=== PATIENT | female | born 1965 | race Caucasian/White ===

== ENCOUNTER 2024-01-26 13:03 | Outpatient (CLI) | payer OTHER, SELFPAY ==
--- NOTE | ~2024-01-26 | MR_ITS ---
EXAMINATION: MR foot RT wo con DATE: 01/26/2024 13:44 INDICATION: Posterior tibial tendinitis TECHNIQUE: Magnetic resonance imaging (MRI) of the right foot was performed without intravenous contr ast. Mjxzp-so-pumc included the ankle but excluding the toes. Sequences included sagittal T1-weighted FSE, sagittal fluid sensitive FSE STIR, coronal PD-weighted FS FSE, coronal T1-weighted FSE, axial P D-weighted FS FSE, and axial PD-weighted FSE. COMPARISON: None FINDINGS: Bone alignment is normal. Normal bone marrow signal throughout with no fracture, reactive edema or pa thologic marrow replacing process. The medial and lateral stabilizing ligaments of the ankle, the spr ing ligament complex and the Lisfranc ligament complex are normal. Small amount of fluid surrounding the normal-appearing distal tibialis posterior tendon consistent with mild tenosynovitis. There is an accessory peroneocalcaneus internus muscle belly line lateral to the flexor focus along this muscle belly and with tendon extending to insert on the medial plantar calcaneus near the base of the susten taculum adonis. The remaining flexor and extensor tendons of the foot and ankle are normal. Plantar apo neurosis is normal. Intrinsic musculature of the foot is unremarkable. The joint space at the ankle, mid and hindfoot are normal with physiologic amount of joint fluid. IMPRESSION: 1. Mild tenosynovitis along the normal tibialis posterior tendon. Reviewed, dictated and finalized at location B.
== END 2024-01-26 13:04 ==
LOC: MICIMG 13:05
PROVIDERS: PCP Podiatrist Foot & Ankle Surgery; Visit Provider Podiatrist Foot & Ankle Surgery
DX: M72.2 Plantar fascial fibromatosis (principal); M76.821 Posterior tibial tendinitis, right leg
CPT/HCPCS: 73718

== ENCOUNTER 2024-11-06 08:14 | Emergency (ER) | payer OTHER, SELFPAY ==
--- NOTE | ~2024-11-06 | XR_ITS ---
EXAMINATION: XR chest 2V DATE: 11/06/2024 10:04 INDICATION: Shortness of breath and cough TECHNIQUE: PA and lateral views of the chest were obtained. COMPARISON: None FINDINGS: Airspace and interstitial opacity anterior left mid and lower lung zones suspicious for pneumonia. No pleural effusion or pneumothorax. The cardiomediastinal silhouette is normal. Visualized bones and s oft tissues are unremarkable. IMPRESSION: 1. Lingular and inferior left lower lobar pneumonia. Reviewed, dictated and finalized at location B. 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
--- NOTE | ~2024-11-06 | XR_ITS ---
EXAMINATION: XR abdomen/kub 1V DATE: 11/06/2024 10:04 INDICATION: Vomiting. Cough. TECHNIQUE: A supine view of the abdomen on 2 radiographs was obtained. COMPARISON: None. FINDINGS: Cholecystectomy clips in the right upper quadrant. Small to moderate amount of gas scattered througho ut nondilated loops of large and small bowel in the abdomen and pelvis. No suspicious calcifications in the abdomen or pelvis. Opacities at the left lower lung zone consistent with pneumonia. Severe spo ndylosis at the lumbosacral junction. IMPRESSION: 1. Unremarkable bowel gas pattern. 2. Pneumonia in the left lower lung zone. Reviewed, dictated and finalized at location B. 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
[2024-11-06 08:55] VITALS: BP 123/74; PULSE 98; RESP 20; TEMP 36.3; O2SAT 98
--- NOTE | 2024-11-06 09:36 | ED.NAVMDI ---
HPI - Nausea/Vomiting/Diarrhea General Chief complaint: Nausea/Vomiting/Diarrhea Stated complaint: stomach pain/nausea /dizzy Time Seen by Provider: 11/06/24 09:36 Source: patient and RN notes reviewed Mode of arrival: ambulatory Limitations: no limitations History of Present Illness HPI Narrative: 59-year-old female with a history of GI obstruction 04/2024 presented for c/o nausea, vomiting and diarrhea that occurred 2 days ago. Had one episode of diarrhea today. Has not eaten for over 2 days. Has had no more emesis, and Tolerating fluids. Endorses weakness, fever up to 101 yesterday, chills, and feels like she cannot get a deep breath which she attributes to anxiety. States the obstruction resulted in surgery and the situation was traumatic. Denies cough, sob, wheezing. Took Zofran for symptoms. Denies hematemesis, hematochezia, melena. Related Data Home Medications ?Medication ?Instructions ?Recorded ?Confirmed ?Last Taken ?Type alprazolam 0.25 mg tablet mg 11/06/24 Unknown History estradiol 0.01% (0.1 mg/gram) vaginal 11/06/24 Unknown History vaginal cream etanercept 50 mg/mL (1 mL) mg subcut 11/06/24 Unknown History subcutaneous syringe (Enbrel) folic acid 1 mg tablet 11/06/24 Unknown History methotrexate sodium 2.5 mg tablet mg 11/06/24 Unknown History nabumetone 500 mg tablet mg 11/06/24 Unknown History ondansetron 8 mg disintegrating mg 11/06/24 Unknown History tablet trazodone 100 mg tablet mg 11/06/24 Unknown History valacyclovir 1 gram tablet mg 11/06/24 Unknown History Allergies Allergy/AdvReac Type Severity Reaction Status Date / Time levofloxacin (From Levaquin) AdvReac Intermediate Hallucinati Verified 11/06/24 10:05 ng Review of Systems Review of Systems: CONSTITUTIONAL: reports fever, chills, weakness ENT: Denies rhinorrhea, congestion CARDIOVASCULAR: Denies chest pain, palpitations, or edema. RESPIRATORY: Denies cough or dyspnea. GASTROINTESTINAL: Endorses nausea, vomiting, diarrhea. Denies abdominal pain, hematochezia, melena, hematemesis GENITOURINARY: Denies dysuria, hematuria, or CVA tenderness. SKIN: Denies rash MUSCULOSKELETAL: Denies back pain, joint pain, or myalgia. NEUROLOGIC: Denies headache, numbness, tingling All systems reviewed & are unremarkable except as noted in HPI and below PMFSH Past Medical History Medical History (Updated 11/06/24 @ 10:36 by Elida Avila APRN) Rheumatoid arthritis Small bowel obstruction Anxiety Comments At time of signature, I have reviewed and agree with nursing past medical, surgical, social and family history unless otherwise noted. Please see nursing chart for further information. There is no relevant family history pertinent to the presenting complaint Exam Narrative: GENERAL: mildly ill-appearing, nontoxic and in no acute distress. EYES: EOMI. Conjunctivae normal. ENT: Mucous membranes pink and moist. CHEST: No respiratory distress. Clear to auscultation. HEART: Regular rate and rhythm. No murmur appreciated. Normal peripheral pulses. ABDOMEN: abd soft, nondistended, normal active bowel sounds. Nontender abdomen; No guarding, rebound tenderness, asymmetry SKIN: Warm, dry, no rash. Capillary refill normal. Normal skin turgor. NEURO: No focal deficits. Alert and oriented x3. PSYCH: appears anxious. Course Course Emergency Course: Patient is aware of diagnosis, understands and agrees to treatment plan. Anticipatory guidance given. Patient agrees to follow-up as directed and is aware of reasons to seek care at the emergency department. Portions of this record may have been created with voice recognition software Level of Care: Express Care Visit Vital Signs Vital signs: Vital Signs Temperature 97.4 F L 11/06/24 08:55 Pulse Rate 98 11/06/24 08:55 Respiratory Rate 20 11/06/24 08:55 Blood Pressure 123/74 11/06/24 08:55 Pulse Oximetry 98 11/06/24 08:55 Oxygen Delivery Room Air 11/06/24 08:55 Temperature 97.4 F L 11/06/24 08:55 Pulse Rate 98 11/06/24 08:55 Respiratory Rate 20 11/06/24 08:55 Blood Pressure 123/74 11/06/24 08:55 Pulse Oximetry 98 11/06/24 08:55 Oxygen Delivery Room Air 11/06/24 08:55 Transfer Transfered to: [facility] Transportation: Other (private vehicle) Transfer rationale: Pt is agreeable to transfer. Requests transfer to [facility] via private vehicle. Risks of transportation reviewed with pt including injury, worsening of condition and . v/u. will be driving pt; Report called to hospital, spoke with Xiomy Grey NP, accepting physician. Pt is in stable condition at time of transfer. Advised to remain NPO and go directly to the hospital. MDM - Nausea/Vomiting/Diarrhea MDM Narrative Medical decision making narrative: Negative flu and COVID. Results of x-rays reviewed with patient; Left lingula and lower lung pneumonia. Pt states she feels like she will pass out. Pt assisted to the exam table, laying down. Remains awake and alert. Discussed physical exam findings. Advised ER transfer for nausea/vomiting, weakness. Requests [facility]. Differential Diagnosis Differential diagnosis: Likely traveler's diarrhea, food poisoning, gastroenteritis, drug-induced nausea and vomiting and dehydration Lab Data Labs: Lab Results 11/06/24 Range/Units 08:59 POC Influenza A Ag Negative (Negative) POC Influenza B Ag Negative (Negative) POC SARS CoV-2 Ag Negative (Negative) Imaging Data Radiologist's impression: Patient: Hans Pascual : 1965 MR#: [id number] Age: 59 Acct:[id number] Loc: [facility] ADM Date: 11/06/24Attending Dr: Ordering Physician: Elida Avila APRN Date of Service: 11/06/24 Procedure(s): XR chest 2V Accession Number(s): [id number] cc: Elida Avila APRN; Bola, Dayanara MCELROY~ EXAMINATION: XR chest 2V DATE: 11/06/2024 10:04 INDICATION: Shortness of breath and cough TECHNIQUE: PA and lateral views of the chest were obtained. COMPARISON: None FINDINGS: Airspace and interstitial opacity anterior left mid and lower lung zones suspicious for pneumonia. No pleural effusion or pneumothorax. The cardiomediastinal silhouette is normal. Visualized bones and soft tissues are unremarkable. IMPRESSION: 1. Lingular and inferior left lower lobar pneumonia. Patient: Hans Pascual : 1965 MR#: [id number] Age: 59 Acct:[id number] Loc: [facility] ADM Date: 12/23/24Attending Dr: Ordering Physician: Elida Avila APRN Date of Service: 11/06/24 Procedure(s): XR abdomen/kub 1V Accession Number(s): [id number] cc: Elida Avila APRN; OwenDayanara MD~ EXAMINATION: XR abdomen/kub 1V DATE: 11/06/2024 10:04 INDICATION: Vomiting. Cough. TECHNIQUE: A supine view of the abdomen on 2 radiographs was obtained. COMPARISON: None. FINDINGS: Cholecystectomy clips in the right upper quadrant. Small to moderate amount of gas scattered throughout nondilated loops of large and small bowel in the abdomen and pelvis. No suspicious calcifications in the abdomen or pelvis. Opacities at the left lower lung zone consistent with pneumonia. Severe spondylosis at the lumbosacral junction. IMPRESSION: 1. Unremarkable bowel gas pattern. 2. Pneumonia in the left lower lung zone. Discharge Plan Discharge Clinical Impression: Nausea, vomiting and diarrhea Pneumonia Qualifiers: Pneumonia type: due to unspecified organism Laterality: left Lung location: lower lobe of lung Qualified Code(s): J18.9 - Pneumonia, unspecified organism Patient Disposition: Acute Care Hospital Condition: Stable Patient Language: Kiswahili Prescriptions: No Action valacyclovir 1 gram tablet ondansetron 8 mg tablet,disintegrating alprazolam 0.25 mg tablet methotrexate sodium 2.5 mg tablet trazodone 100 mg tablet folic acid 1 mg tablet estradiol 0.01 % (0.1 mg/gram) cream VAGINAL nabumetone 500 mg tablet Enbrel 50 mg/mL (1 mL) syringe SUBCUT Follow-up/Referrals: OwenDayanara MD [Primary Care Provider] - Time of Disposition: 10:27
[2024-11-06 09:39] LABS: EDCOVIDSCREEN Negative (Negative); EDINFLUASCREEN Negative (Negative); EDINFLUBSCREEN Negative (Negative)
--- OUTSIDE RECORDS SUMMARY | 2024-11-13 17:05 | XMS_ITS | Patient Health Record ---
Author Organization [facility] Address [address] [place] [address] Care Team Providers Care Guide Cruise Name Role Phone Jaspreet Pearl Primary Care Provider Adriana Torre Unavailable [phone] [employer], Provider Unavailable Unavailab le Allergies Allergen (clinical drug ingredient) Drug/Non Drug Allergy documented on EMR Reaction Allergy Type Onset Date Status Levaquin hallucinations Drug Allergy Ac tive Reason For Referral No Information Medications Medication SIG (Take, Route, Frequency, Duration) Notes Start Date End Date Status ESTRADIOL 0.05 mg/24 hr 1 ea intravaginally every 3 months for 1 dose(s) Active Methotrexate 2.5 MG DIRECTED ORALLY ONCE A WEEK for 30 *Please review and pick correct strength-formulat ion from [employer] options. If intended option is not shown, discontinue and re-order from Quick Search* 07/24/2021 Active TRAZODONE 50 mg as directed orally Active busPIRone HCl 15 MG 1 tab(s) orally once daily for 30 days 07/24/2021 Active GABAPENTIN 100 mg 1 cap(s) orally 3 times a day Active Enbrel 50 MG/ML for 28 Acti ve NABUMETONE 1000 mg 1 tab(s) orally once a day Active Folic Acid 1 MG 1 tab(s) orally once a day for 30 day(s) Active AUVI -Q 0.3 mg as directed intramuscularly once for 1 day Active AZELASTINE HYDROCHLORIDE NASAL 137 mcg/inh 2 spray(s) intranasally 2 times a day, PRN for 30 day(s) Active Montelukast Sodium 10 MG 1 tab(s) orally once a day for 90 days Active FOLIC ACID 1 mg 1 tab(s) orally once a day for 30 day(s) Active MULTIVITAMIN Multiple Vitamins 1 cap(s) orally once a day for 30 day(s) Active PROAIR RESPICLICK 90 mcg 2 puffs q 4-6 hours per asthma action plan Inhaled Q4-6 hours, PRN and per the asthma action plan for 30 day(s) Active ENBREL PREFILLED SYRINGE 50 mg/mL for 28 Active ProAir RespiClick 90 MCG 2 PUFFS Q 4-6 HOURS PER ASTHMA ACTION PLAN INHALED Q4-6 HOURS, PRN AND PER THE ASTHMA ACTION PLAN for 30 DAY(S) *Please review and pick correct strength-formulat ion from [employer] options. If intended option is not shown, discontinue and re-order from Quick Search* Active Auvi-Q 0.3 MG/0.3ML as directed intramuscularly once for 1 day Active NASAL WASHES N/A DIRECTED INTRANASALLY NEEDED for 30 *Please review for potential replacement for e-prescription and drug interaction check* Active Piyush Allergy 180 MG 1 tab(s) orally once a day for 30 day(s) Active METHOTREXATE 2.5 mg as directed orally once a week for 30 07/24/2021 Active BUSPIRONE 15 mg 1 tab(s) orally once daily for 30 days 07/24/2021 Active SIT (TRADITIONAL) VARIABLE PER SCHEDULE SC PER SCHEDULE for TO BE DETERMINED *Please review for potential replacement for e-prescription and drug interaction check* Active Multivitamin MULTIPLE VITAMINS 1 CAP(S) ORALLY ONCE A DAY for 30 DAY(S) *Please review and pick correct strength-formulat ion from [employer] options. If intended option is not shown, discontinue and re-order from Quick Search* Active VITAMIN C PLUS ZINC VITAMIN C WITH ZINC 1 TAB(S) ORALLY ONCE A DAY *Please review for potential replacement for e-prescription and drug interaction check* Active Estradiol 0.05 MG/24 HR 1 EA INTRAVAGINALLY EVERY 3 MONTHS for 1 DOSE(S) *Please review and pick correct strength-formulat ion from [employer] options. If intended option is not shown, discontinue and re-order from Quick Search* Active PIYUSH 24 HOUR ALLERGY 180 mg 1 tab(s) orally once a day for 30 day(s) Active traZODone HCl 50 MG as directed orally Active PROAIR RESPICLICK 90 mcg 2 puffs q 4-6 hours per asthma action plan Inhaled Q4-6 hours, PRN and per the asthma action plan for 30 day(s) Active Gabapentin 100 MG 1 cap(s) orally 3 times a day Active Azelastine HCl 137 MCG/SPRAY 2 spray(s) intranasally 2 times a day, PRN for 30 day(s) Active MONTELUKAST 10 mg 1 tab(s) orally once a day for 90 days Active Nabumetone 1000 MG 1 tab(s) orally once a day Active Social History Tobacco Use: Social History Observation Description Date Details (start date - stop date) Never Smoker NA - NA Smoking Smart Form: Question Answer Notes Are you a: never smoker Additional Findings:Tobacco Non-User Current non -smoker Problems Problem Type SNOMED Code ICD Code Onset Dates Problem Status W/U Status Risk Notes Problem Chronic allergic conjunctivitis (37411593) Other chronic allergic conjunctivitis (H10.45) Active confirmed Problem Common cold (68875744) Acute nasopharyngitis [common cold] (J00) Active confirmed Problem Allergic rhinitis caused by pollen (disorder) (48702374) Allergic rhinitis due to pollen (J30.1) Active confirmed Problem Allergic rhinitis caused by animal hair and dander (272500455105528) Allergic rhinitis due to animal (cat) (dog) hair and dander (J30.81) Active confirmed Problem Allergic rhinitis (46475965) Other allergic rhinitis (J30.89) Active confirmed Problem 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) Active confirmed Problem Allergic rhinitis caused by pollen (disorder) (70609524) Allergic rhinitis due to pollen (J30.1) Active confirmed Problem Allergic rhinitis caused by animal hair and dander (120153989060264) Allergic rhinitis due to animal (cat) (dog) hair and dander (J30.81) Active confirmed Problem Allergic rhinitis (22769243) Other allergic rhinitis (J30.89) Active confirmed Problem Chronic allergic conjunctivitis (63935723) Other chronic allergic conjunctivitis (H10.45) Active confirmed Problem Shortness of breath (405715729) Shortness of breath (R06.02) Active confirmed Vital Signs Respiratory Rate 17 /min 12/02/2023 Blood pressure diastolic 72 mm Hg 12/02/2023 Oximetry 98 % 12/02/2023 Height 68 in 12/02/2023 Blood pressure systolic 134 mm Hg 12/02/2023 Weight 180 lbs 12/02/2023 BMI 27.37 kg/m2 12/02/2023 Encounters Encounter Location Date Provider Diagnosis [address] [address] 04/29/2024 Provider [facility] Allergic rhinitis due to pollen J30.[address] [address] 12/02/2023 Adriana Ma Allergic rhinitis du e to pollen J30.1 ; Shortness of breath R06.02 ; Allergic rhinitis due to animal (cat) (dog) hair and dander J30.81 ; Other allergic rhinitis J30.89 and Other chronic allergic conjunctivitis H10.[address] [address] 12/30/2023 Adriana Anil Allergic rhinitis du e to pollen J30.1 ; Other allergic rhinitis J30.89 ; Allergic rhinitis due to animal (cat) (dog) hair and dander J30.81 and Other chronic allergic conjunctivitis H10.[address] [address] 01/27/2024 Adriana Anil Allergic rhinitis du e to pollen J30.1 ; Other allergic rhinitis J30.89 ; Allergic rhinitis due to animal (cat) (dog) hair and dander J30.81 and Other chronic allergic conjunctivitis H10.[address] [address] 02/23/2024 Adriana Anil Allergic rhinitis du e to pollen J30.1 ; Other allergic rhinitis J30.89 ; Allergic rhinitis due to animal (cat) (dog) hair and dander J30.81 and Other chronic allergic conjunctivitis H10.[address] [place] [address] 03/22/2024 Adriana Anil Allergic rhinitis du e to pollen J30.1 ; Other allergic rhinitis J30.89 ; Allergic rhinitis due to animal (cat) (dog) hair and dander J30.81 and Other chronic allergic conjunctivitis H10.45 [facility] [address] [place] [phone] 04/05/2024 Adriana Ma Assessments Encounter Date Diagnosis (ICD Code) Assessment Notes Treatment Notes Treatment Clinical Notes Section Notes 12/02/2023 Allergic rhinitis due to pollen (ICD-10 - J30.1) Hans clearly suffers from atopic disease based upon history and our skin testing. She is tolerating SCIT without large local or systemic symptoms. She was instructed to carry her epinephrine autoinjector for 2 hours after leaving the office. Plan to discontinue SCIT after completing 5 years of therapy 12/02/2023 Shortness of breath (ICD-10 - R06.02) Possible intermittent asthma with animal exposure. Improvement with Singulair. Spirometry at last check is normal and no use of albuterol in several years. 12/30/2023 Allergic rhinitis due to pollen (ICD-10 - J30.1) 01/27/2024 Allergic rhinitis due to pollen (ICD-10 - J30.1) 02/23/2024 Allergic rhinitis due to pollen (ICD-10 - J30.1) 03/22/2024 Allergic rhinitis due to pollen (ICD-10 - J30.1) 04/29/2024 Allergic rhinitis due to pollen (ICD-10 - J30.1) 12/02/2023 Allergic rhinitis due to animal (cat) (dog) hair and dander (ICD-10 - J30.81) 03/22/2024 Other allergic rhinitis (ICD-10 - J30.89) 02/23/2024 Other allergic rhinitis (ICD-10 - J30.89) 01/27/2024 Other allergic rhinitis (ICD-10 - J30.89) 12/30/2023 Other allergic rhinitis (ICD-10 - J30.89) 12/02/2023 Other allergic rhinitis (ICD-10 - J30.89) 01/27/2024 Allergic rhinitis due to animal (cat) (dog) hair and dander (ICD-10 - J30.81) 12/30/2023 Allergic rhinitis due to animal (cat) (dog) hair and dander (ICD-10 - J30.81) 02/23/2024 Allergic rhinitis due to animal (cat) (dog) hair and dander (ICD-10 - J30.81) 03/22/2024 Allergic rhinitis due to animal (cat) (dog) hair and dander (ICD-10 - J30.81) 03/22/2024 Other chronic allergic conjunctivitis (ICD-10 - H10.45) 02/23/2024 Other chronic allergic conjunctivitis (ICD-10 - H10.45) 12/30/2023 Other chronic allergic conjunctivitis (ICD-10 - H10.45) 01/27/2024 Other chronic allergic conjunctivitis (ICD-10 - H10.45) 12/02/2023 Other chronic allergic conjunctivitis (ICD-10 - H10.45) Given ocular signs and symptoms I encouraged allergy avoidance measures and meds as above. 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
--- OUTSIDE RECORDS SUMMARY | 2024-11-13 17:05 | XMS_ITS | Referral Summary ---
Author Organization [facility] Celleration Address [address] [place] [address] Care Team Providers Care Medical Insurance Biller Name Role Phone Dayanara Plaza MD Primary Care Provider [phone] Source Comments [facility],non-owned Affiliates and Associated Physician Practices is amultiple site organization consisting of ambulatory clinics and hospital sitesin [place], [place], [place] and [place]. This disclosure is being madepursuant to the Care Everywhere program and may not contain all information available regarding this patient. Last updated 18.[facility] Encounters Date Type Department Care Team Description 10/27/2024 Orders Only [facility] - Rheumatology [address] [place] [phone] Perez Cervantes MD Polyarthritis; Encounter for therapeutic drug monitoring; Encounter for long-term (current) use of medications 10/25/2024 Orders Only [facility] - Rheumatology [address] [place] [phone] Perez Cervantes MD 10/19/2024 Refill [facility] - Rheumatology [address] [place] [phone] Perez Cervantes MD MEDICATION REFILL 10/16/2024 Refill [facility] - Rheumatology [address] [place] [phone] Christian Pemberton MD MEDICATION REFILL 10/05/2024 Lab Requisition [facility] - DermPath Lab [address] [place] [address] Elida Reyes 09/25/2024 2:32 PM CRACKING AND FANNING MACHINE OPERATOR - 09/25/2024 11:59 PM CRACKING AND FANNING MACHINE OPERATOR Hospital Encounter [facility]ST[facility] RAD OP [address] [place] [address] Perez Cervantes MD Discharge Disposition: Home or Self Care 09/25/2024 Travel 09/25/2024 1:40 PM CRACKING AND FANNING MACHINE OPERATOR Office Visit [facility] - Rheumatology [address] [place] [address] Perez Cervantes MD Polyarthritis (Primary Dx); Encounter for therapeutic drug monitoring 09/01/2024 Orders Only [facility] - Rheumatology [address] [place] [address] Perez Cervantes MD Polyarthritis; Encounter for therapeutic drug monitoring; Encounter for long-term (current) use of medications 08/30/2024 Orders Only [facility] - Rheumatology [address] [place] [address] Perez Cervantes MD from Last 3 Months Allergies Active Allergy Reactions Criticality Noted Date Comments Levofloxacin Nausea and/or Vomiting,Psychiatric Medium 02/17/2018 hallucinations Medications * Be aware that medications may not be up to date on this document. Alwaysverify current medications with the patient. Medication Sig Dispensed Refills Start Date End Date Status dicyclomine (BENTYL) 20 MG tablet Take 1 (one) tablet by mouth as needed Active Multiple Vitamin (MULTI VITAMIN PO) Take 1 tablet by mouth once daily Active Azelastine HCl 137 MCG/SPRAY SOLN [place] 2 sprays into the nose 2 times daily Active polyethylene glycol 3350 (MIRALAX) 17 GM/SCOOP powder Take 17 (seventeen) g by mouth every 24 hours as needed Active methotrexate 2.5 MG tablet TAKE 8 TABLETS EVERY 7 DAYS 96 tablet 3 01/04/2023 Active Additional Information Patient taking differently: 6 tablet Oral EVERY 7 DAYS, (No instructions reported), Reported on 08/31/2023 nabumetone (Relafen) 500 MG tablet TAKE 2 TABLETS TWICE A DAY 360 tablet 3 01/04/2023 Active fexofenadine (Arabella) 180 MG tablet Take 1 (one) tablet by mouth every 24 hours Active valACYclovir (Valtrex) 1 GM tablet Take 1 (one) tablet by mouth once daily 03/04/2024 Active traZODone (Desyrel) 100 MG tablet Take 1 (one) tablet by mouth once daily 02/28/2024 Active folic acid (Folvite) 1 MG tabletIndicatio ns:Polyarthriti s Take 1 (one) tablet by mouth once daily 90 tablet 3 07/21/2024 5 Active estradiol (Estrace) 0.1 MG/GM vaginal cream Insert into the vagina once daily 10/26/2023 Active Enbrel 50 MG/ML prefilled syringeIndicati ons:Polyarthrit is Inject 50 (fifty) mg subcutaneously every 7 days 12 mL 3 10/19/2024 Active Enbrel 50 MG/ML prefilled syringeIndicati ons:Polyarthrit is Inject 50 (fifty) mg subcutaneously every 7 days 12 mL 07/11/2024 4 Discontinue d(Reorder) Enbrel 50 MG/ML prefilled syringeIndicati ons:Polyarthrit is Inject 50 (fifty) mg subcutaneously every 7 days 12 mL 3 10/16/2024 4 Discontinue d(Reorder) Active Problems Problem Noted Date Diagnosed Date Polyarthritis 06/01/2018 Encounter for therapeutic drug monitoring 2017 Immunizations Name Administration Dates Next Due FLU VACCINE TRI IIV3 SPLIT P F IM (FLUVIRIN) 08/22/2020 INFLUENZA 08/22/2020, 9,08/29/2017,2014,09/02/2013 INFLUENZA VACCINE, QUADR. (F LUZONE; FLULAVAL; FLUARIX; AFLURIA QUADRIVALENT; 6MO+), 0.5 ML (IIV4) 08/31/2023,08/08/2018 PNEUMOCOCCAL PPSV23 08/16/2016 iNFLUENZA VACCINE, RECOM-PACHECO, QUADR. (FLUBLOCK QUADRIVALENT; 18Y+) (RIV4) 09/01/2022 Social History Tobacco Use Types Packs/Day Years Used Date Smoking Tobacco: Former Cigarettes Q uit: 11/15/1998 Smokeless Tobacco: Never Tobacco Cessation:Counseling Given: Not Answered Alcohol Use Standard Drinks/Week Comments No 0 (1 standard drink = 0.6 oz pur e alcohol) PHQ-2 Answer Date Recorded Patient Health Questionnaire-2 Score 0 09/25/2024 Sex and Gender Information Value Date Recorded Sex Assigned at Not on file Gender Identity Not on file Sexual Orientation Not on file Last Filed Vital Signs Vital Sign Reading Time Taken Comments Blood Pressure 118/78 09/25/2024 1:24 PM CRACKING AND FANNING MACHINE OPERATOR Pulse 69 09/25/2024 1:24 PM CRACKING AND FANNING MACHINE OPERATOR Temperature 36.6 ??C (97.9 ??F) 09/25/2024 1:24 PM CS T Respiratory Rate 16 06/09/2021 2:48 PM CDT Oxygen Saturation 98% 09/25/2024 1:24 PM CRACKING AND FANNING MACHINE OPERATOR Inhaled Oxygen Concentration - - Weight 77.8 kg (171 lb 9.6 oz) 09/25/2024 1:24 P M CRACKING AND FANNING MACHINE OPERATOR Height 172.7 cm (5' 8 ) 09/25/2024 1:24 PM CRACKING AND FANNING MACHINE OPERATOR Body Mass Index 26.09 09/25/2024 1:24 PM CRACKING AND FANNING MACHINE OPERATOR Plan of Treatment Upcoming Encounters Date Type Department Care Team (Late st Contact Info) Description 03/27/2025 1:00 PM CDT Office Visit [facility] - Rheumatology [address] [place] [address], [place] [phone] Perez Cervantes MD [address] [place] [address] [place] [phone] Procedures Procedure Name Priority Date/Time Associated Diagnosis Comments QUANTIFERON-TB GOLD PLUS 1-TUBE 10/25/2024 7:42 AM CRACKING AND FANNING MACHINE OPERATOR HEPATITIS C AB W/RFLX TO HCV RNA QN PCR Routine 10/25/2024 7:42 AM CRACKING AND FANNING MACHINE OPERATOR Encounter for therapeutic drug monitoring HEPATITIS B SURFACE ANTIGEN W RFLX CONFIRMATION Routine 10/25/2024 7:42 AM CRACKING AND FANNING MACHINE OPERATOR Encounter for therapeutic drug monitoring HEPATITIS B SURFACE ANTIBODY Routine 10/25/2024 7:42 AM CRACKING AND FANNING MACHINE OPERATOR Encounter for therapeutic drug monitoring HEPATITIS B CORE ANTIBODY TOTAL Routine 10/25/2024 7:42 AM CRACKING AND FANNING MACHINE OPERATOR Encounter for therapeutic drug monitoring URINALYSIS W/MICROSCOPIC REFLEX TO CULTURE Routine 10/25/2024 7:39 AM CRACKING AND FANNING MACHINE OPERATOR Polyarthritis Encounter for therapeutic drug monitoring ERYTHROCYTE SEDIMENTATION RATE Routine 10/25/2024 7:39 AM CRACKING AND FANNING MACHINE OPERATOR Polyarthritis Encounter for therapeutic drug monitoring C-REACTIVE PROTEIN Routine 10/25/2024 7: 39 AM CRACKING AND FANNING MACHINE OPERATOR Polyarthritis Encounter for therapeutic drug monitoring COMPREHENSIVE METABOLIC PANEL Routine 10/25/2024 7:39 AM CRACKING AND FANNING MACHINE OPERATOR Polyarthritis Encounter for therapeutic drug monitoring CBC W AUTO DIFFERENTIAL Routine 10/25/20 24 7:39 AM CRACKING AND FANNING MACHINE OPERATOR Polyarthritis Encounter for therapeutic drug monitoring CULTURE URINE 10/25/2024 7:39 AM CRACKING AND FANNING MACHINE OPERATOR CULTURE URINE REFLEXED II 10/25/2024 7:39 AM CRACKING AND FANNING MACHINE OPERATOR DERMATOPATHOLOGY Routine 10/05/2024 10:3 3 AM CRACKING AND FANNING MACHINE OPERATOR XR CHEST 2VW Routine 09/25/2024 2:53 PM CRACKING AND FANNING MACHINE OPERATOR Encounter for therapeutic drug monitoring C-REACTIVE PROTEIN 08/30/2024 7: 38 AM CDT URINALYSIS W/MICROSCOPIC REFLEX TO CULTURE 08/30/2024 7:38 AM CDT CBC W AUTO DIFFERENTIAL 08/30/20 24 7:38 AM CDT ERYTHROCYTE SEDIMENTATION RATE 08/30/2024 7:38 AM CDT COMPREHENSIVE METABOLIC PANEL 08/30/2024 7:38 AM CDT CULTURE URINE 08/30/2024 7:38 AM CDT CULTURE URINE REFLEXED II 08/30/2024 7:38 AM CDT from Last 3 Months Results * QUANTIFERON-TB GOLD PLUS 1-TUBE (10/25/2024 7:42 AM CRACKING AND FANNING MACHINE OPERATOR) QuantiFERON TB Gold Plus NEGATIVE NEGATIVE [facility] Comment: Negative test result. M. tuberculosis complex infection unlikely. NIL 0.05 IU/mL [facility] MITOGEN MINUS NIL RESULT 7.19 IU/mL [facility] TB1-NIL 0.00 IU/mL [facility] TB2-NIL 0.02 IU/mL [facility] Comment: The Nil tube value reflects the background interferon gamma immune response of the patient's blood sample. This value has been subtracted from the patient's displayed TB and Mitogen results. Lower than expected results with the Mitogen tube prevent false-negative Quantiferon readings by detecting a patient with a potential immune suppressive condition and/or suboptimal pre-analytical specimen handling. The TB1 Antigen tube is coated with the M. tuberculosis-specific antigens designed to elicit responses from TB antigen primed CD4+ helper T-lymphocytes. The TB2 Antigen tube is coated with the M. tuberculosis-specific antigens designed to elicit responses from TB antigen primed CD4+ helper and CD8+ cytotoxic T-lymphocytes. For additional information, please refer to https://education.CS Products/faq/KJT911 (This link is being provided for informational/ educational purposes only.) Test Performed at: [employer] [facility] [id number] [place] [address] ??[phone] NAVID SCOTT MD 10/25/2024 7:42 AM CRACKING AND FANNING MACHINE OPERATOR 10/25/2024 7:42 AM CRACKING AND FANNING MACHINE OPERATOR Perez Cervantes MD LAB - CHEMISTRY GERA DAVID [facility] Organization Address City/State/ZIP Co de Phone Number [facility] [address] [place] [address] * HEPATITIS C AB W/RFLX TO HCV RNA QN PCR (10/25/2024 7:42 AM CRACKING AND FANNING MACHINE OPERATOR) Hepatitis C Antibody NON-REACTI VE NON-REACT ROMANA [facility] Comment: HCV antibody was non-reactive. There is no laboratory evidence of HCV infection. In most cases, no further action is required. However, if recent HCV exposure is suspected, a test for HCV RNA (test code 54106) is suggested. For additional information please refer to http://[employer].CS Products/faq/BWU14l8 (This link is being provided for informational/ educational purposes only.) Test Performed at: [employer] [place] ??[phone] NAVID SCOTT MD Blood BLOOD SPECIMEN / Unknown 10/25/2024 7:42 AM CRACKING AND FANNING MACHINE OPERATOR 10/25/2024 7:42 AM CRACKING AND FANNING MACHINE OPERATOR Perez Cervantes MD LAB - CHEMISTRY GERA DAVID Performing Organization Address [facility] [[email or web address]] de Phone Number [facility] [id number] [place] [phone] * (ABNORMAL) HEPATITIS B SURFACE ANTIBODY (10/25/2024 7:42 AM CRACKING AND FANNING MACHINE OPERATOR) Hepatitis B Virus Surface Antibody REACTIVE(A ) NON-REACT ROMANA [facility] Comment: Test Performed at: [employer] [place], [place] ??[address] NAVID SCOTT MD Blood BLOOD SPECIMEN / Unknown 10/25/2024 7:42 AM CRACKING AND FANNING MACHINE OPERATOR 10/25/2024 7:42 AM CRACKING AND FANNING MACHINE OPERATOR Perez Cervantes MD LAB - CHEMISTRY GERA DAVID Performing Organization Address [facility] Co de Phone Number [facility] [id number] [place] [phone] * HEPATITIS B CORE ANTIBODY TOTAL (10/25/2024 7:42 AM CRACKING AND FANNING MACHINE OPERATOR) Hepatitis B Core Virus Antibody Total NON-REACTI VE NON-REACT ROMANA [facility] Comment: For additional information, please refer to http://[employer]/faq/QEM285 (This link is being provided for informational/ educational purposes only.) Test Performed at: [employer] [facility] [place] ??[phone] NAVID SCOTT MD Blood BLOOD SPECIMEN / Unknown 10/25/2024 7:42 AM CRACKING AND FANNING MACHINE OPERATOR 10/25/2024 7:42 AM CRACKING AND FANNING MACHINE OPERATOR Perez Cervantes MD LAB - CHEMISTRY GERA DAVID Performing Organization Address [facility] Co de Phone Number [address] [address] * HEPATITIS B SURFACE ANTIGEN W RFLX CONFIRMATION (10/25/2024 7:42 AM CRACKING AND FANNING MACHINE OPERATOR) Pathologist [facility] Hepatitis B Virus Surface Antigen NON-REACTI VE NON-REACT ROMANA [facility] Comment: For additional information, please refer to http://education.CS Products/faq/IUS202 (This link is being provided for informational/ educational purposes only.) Test Performed at: [employer] [place] [address] [place], [place] ??[phone] NAVID SCOTT MD Blood BLOOD SPECIMEN / Unknown 10/25/2024 7:42 AM CRACKING AND FANNING MACHINE OPERATOR 10/25/2024 7:42 AM CRACKING AND FANNING MACHINE OPERATOR Perez Cervantes MD LAB - CHEMISTRY GERA DAVID Performing Organization Address [facility] [[email or web address]] de Phone Number [address] [address] * CULTURE URINE REFLEXED II (10/25/2024 7:39 AM CRACKING AND FANNING MACHINE OPERATOR) Only the most recent of2 resultswithin the time period is included. Pathologist [facility] Reflexive Urine Culture See Below [facility] Comment: CULTURE INDICATED - RESULTS TO FOLLOW Test Performed at: [employer] ??[phone] NAVID SCOTT MD 10/25/2024 7:39 AM CRACKING AND FANNING MACHINE OPERATOR 10/25/2024 7:40 AM CRACKING AND FANNING MACHINE OPERATOR Perez Cervantes MD LAB - MICROBIOLOGY O RDERABLES Performing Organization Address [facility] Co de Phone Number [address] [address] * (ABNORMAL) URINALYSIS W/MICROSCOPIC REFLEX TO CULTURE (10/25/2024 7:39 AM CRACKING AND FANNING MACHINE OPERATOR) Only the most recent of2 resultswithin the time period is included. Color UA YELLOW YELLOW [facility] Appearance CLOUDY(A) CLEAR [facility] Specific [place] UA 1.023 1.001 - 1.035 [facility] pH UA < OR = 5.0 5.0 - 8.0 [facility] Glucose UA NEGATIVE NEGATIVE [facility] Bilirubin UA NEGATIVE NEGATIVE [facility] Ketone UA NEGATIVE NEGATIVE [facility] Blood UA NEGATIVE NEGATIVE [facility] Protein UA NEGATIVE NEGATIVE [facility] Nitrite NEGATIVE NEGATIVE [facility] Leukocyte Esterase 2+(A) NEGATIVE [facility] WBC UA > OR = 60(A) < OR = 5 /HPF [facility] RBC UA NONE SEEN < OR = 2 /HPF [facility] Epithelial Cell UA 0-5 < OR = 5 /HPF [facility] Bacteria UA MODERATE(A) NONE SEEN /HPF [facility] Hyaline Casts NONE SEEN NONE SEEN /LPF [facility] Note See Below [facility] Comment: This urine was analyzed for the presence of WBC, RBC, bacteria, casts, and other formed elements. Only those elements seen were reported. Test Performed at: [employer] ??[phone] NAVID SCOTT MD Urine URINE SPECIMEN OBTAINED BY CLEAN CATCH PROCEDURE / Unknown 10/25/2024 7:39 AM CRACKING AND FANNING MACHINE OPERATOR 10/25/2024 7:40 AM CRACKING AND FANNING MACHINE OPERATOR Perez Cervantes MD LAB - URINALYSIS ORD ERABLES Performing Organization Address [facility] Phone Number [address] [address] * C-REACTIVE PROTEIN (10/25/2024 7:39 AM CRACKING AND FANNING MACHINE OPERATOR) Only the most recent of2 resultswithin the time period is included. C-Reactive Protein <3.0 <8.0 mg/L [facility] Comment: Test Performed at: [employer] [place] [address] [facility] [place] ??[phone] NAVID SCOTT MD Blood BLOOD SPECIMEN / Unknown 10/25/2024 7:39 AM CRACKING AND FANNING MACHINE OPERATOR 10/25/2024 7:40 AM CRACKING AND FANNING MACHINE OPERATOR Perez Cervantes MD LAB - CHEMISTRY ORDE RABLES Performing Organization Address [facility] de Phone Number [address] [address] * CULTURE URINE (10/25/2024 7:39 AM CRACKING AND FANNING MACHINE OPERATOR) Only the most recent of2 resultswithin the time period is included. Pathologist [facility] Culture [facility] Comment: ??CULTURE, URINE, ROUTINE ?Micro Number: ?[id number] ??Test Status: ? Final ??Specimen Source: ?? Urine ??Specimen Quality: ??Adequate ??Result: ?No Growth REPORT COMMENT: FASTING:YES Test Performed at: [employer] ??[phone] NAVID SCOTT MD 10/25/2024 7:39 AM CRACKING AND FANNING MACHINE OPERATOR 10/25/2024 7:40 AM CRACKING AND FANNING MACHINE OPERATOR Perez Cervantes MD LAB - MICROBIOLOGY O RDERABLES Performing Organization Address [facility] de Phone Number [facility] [address] [place] [phone] * ERYTHROCYTE SEDIMENTATION RATE (10/25/2024 7:39 AM CRACKING AND FANNING MACHINE OPERATOR) Only the most recent of2 resultswithin the time period is included. Pathologist [facility] Erythrocyte Sedimentation Rate Westergren 6 < OR = 30 mm/h [facility] Comment: Test Performed at: [employer] [facility] [place], [place] ??[phone] NAVID SCOTT MD Blood BLOOD SPECIMEN / Unknown 10/25/2024 7:39 AM CRACKING AND FANNING MACHINE OPERATOR 10/25/2024 7:40 AM CRACKING AND FANNING MACHINE OPERATOR Perez Cervantes MD LAB - HEMATOLOGY ORD ERABLES Performing Organization Address [facility] [[email or web address]] de Phone Number [address] [address] * (ABNORMAL) CBC WITH DIFFERENTIAL (10/25/2024 7:39 AM CRACKING AND FANNING MACHINE OPERATOR) Only the most recent of2 resultswithin the time period is included. Pathologist [facility] White Blood Cell Count 4.5 3.8 - 10.8 Thousand/ uL [facility] RBC 3.91 3.80 - 5.10 Million/u L [facility] Hemoglobin 12.9 11.7 - 15.5 g/dL [facility] Hematocrit 39.7 35.0 - 45.0 % [facility] MCV 101.5(H) 80.0 - 100.0 fL [facility] MCH 33.0 27.0 - 33.0 pg [facility] MCHC 32.5 32.0 - 36.0 g/dL [facility] Comment: For adults, a slight decrease in the calculated MCHC value (in the range of 30 to 32 g/dL) is most likely not clinically significant; however, it should be interpreted with caution in correlation with other red cell parameters and the patient's clinical condition. RDW 14.7 11.0 - 15.0 % [facility] Platelet Count 200 140 - 400 Thousand/ uL [facility] MPV 10.7 7.5 - 12.5 fL [facility] Neutrophil Absolute 2178 1500 - 7800 cells/uL [facility] Absolute Bands [facility] Metamyelocytes Absolute [facility] Myelocytes Absolute [facility] Absolute Prolymphocytes [facility] Lymphocytes Absolute 1539 850 - 3900 cells/uL [facility] Absolute Monocytes 675 200 - 950 cells/uL [facility] Eosinophils Absolute 90 15 - 500 cells/uL [facility] Basophils Absolute 18 0 - 200 cells/uL [facility] Absolute Blasts [facility] nRBC Absolute [facility] Granulocytes % 48.4 % [facility] Band Neutrophil [facility] Metamyelocytes [facility] Myelocytes [facility] Promyelocytes [facility] Lymphocytes % 34.2 % [facility] Lymphocyte Reactive [facility] Monocytes % 15.0 % [facility] Eosinophils % 2.0 % [facility] Basophils % 0.4 % [facility] Comment: Test Performed at: [employer] [address] [place], [place] ??[phone] NAVID SCOTT MD Blasts [facility] nRBC [facility] Comments [facility] Comment: Test Performed at: [employer] [address] [place], [place] ??[address] NAVID SCOTT MD Blood BLOOD SPECIMEN / Unknown 10/25/2024 7:39 AM CRACKING AND FANNING MACHINE OPERATOR 10/25/2024 7:40 AM CRACKING AND FANNING MACHINE OPERATOR Perez Cervantes MD LAB - HEMATOLOGY ORD ERABLES [facility] [address] [place] [address] * COMPREHENSIVE METABOLIC PANEL (10/25/2024 7:39 AM CRACKING AND FANNING MACHINE OPERATOR) Only the most recent of2 resultswithin the time period is included. Glucose 83 65 - 99 mg/dL [facility] Comment: ? Fasting reference interval BUN 18 7 - 25 mg/dL [facility] Creatinine 0.79 0.50 - 1.05 mg/dL [facility] eGFR by Cystatin C 85 > OR = 60 mL/min/1. 73m2 [facility] BUN/Creatinine Ratio SEE NOTE: - (calc) [facility] Comment: ?? Not Reported: BUN and Creatinine are within ?? reference range. ? Sodium 140 135 - 146 mmol/L [facility] Potassium 3.9 3.5 - 5.3 mmol/L [facility] Chloride 104 98 - 110 mmol/L [facility] CO2 28 20 - 32 mmol/L [facility] Calcium 9.4 8.6 - 10.4 mg/dL [facility] Protein Total 7.0 6.1 - 8.1 g/dL [facility] Albumin 4.2 3.6 - 5.1 g/dL [facility] Globulin Total 2.8 1.9 - 3.7 g/dL (calc) [facility] Albumin/Globulin Ratio 1.5 1.0 - 2.5 (calc) [facility] Bilirubin Total 0.4 0.2 - 1.2 mg/dL [facility] Alkaline Phosphatase 87 37 - 153 U/L [facility] AST 21 10 - 35 U/L [facility] ALT 20 6 - 29 U/L [facility] Comment: Test Performed at: [employer] [address] ??[phone] NAVID SCOTT MD Blood BLOOD SPECIMEN / Unknown 10/25/2024 7:39 AM CRACKING AND FANNING MACHINE OPERATOR 10/25/2024 7:40 AM CRACKING AND FANNING MACHINE OPERATOR Perez eCrvantes MD LAB - CHEMISTRY GERA DAVID [facility] [address] [place] [address] * DERMATOPATHOLOGY (10/05/2024 10:33 AM CRACKING AND FANNING MACHINE OPERATOR) Pathologist [facility] Case Report Dermatopathology Report ? Case: [id number] ? Authorizing Provider: ??Elida Reyes, DO ?? Collected: ? 10/05/2024 10:33 AM ? Ordering Location: ? [facility] - ??Received: ?10/05/2024 04:35 PM ? DermPath Lab ? Pathologist: ? Kassandra Maurer MD ? Specimen: ?Skin, left upper arm ? 4 1:26 PM [facility] DERMATOPATHOLOGY [facility]ORATORY Final Diagnosis Specimen A. SKIN, left upper arm: LICHEN PLANUS-LIKE KERATOSIS (BENIGN LICHENOID KERATOSIS) (L82.1) 4 1:26 PM [facility] DERMATOPATH[facility]Y [facility]ORATORY Clinical History R/O NMSC 4 1:26 PM [facility] DERMATOPATHOLOGY LABORATORY Gross Description Specimen A: Received is one formalin filled container labeled with the patient's name and designated left upper arm. The specimen consists of a shave biopsy measuring 8x7x1 mm. Jar 0. 4 1:26 PM [facility] DERMATOPATHOLOGY LABORATORY Microscopic Description Specimen A. SKIN, left upper arm: The epidermis is mildly acanthotic. There is a lichenoid infiltrate with vacuolar changes of basilar keratinocytes and scattered necrotic keratinocytes. 4 1:26 PM CRACKING AND FANNING MACHINE OPERATOR DERMATOPATHOLOGY LABORATORY Disclaimer An external and internal positive and negative controls are appropriate for the histochemical, immunohistochemical and immunofluorescence stain(s) in this case (if any), except where stated explicitly. The performance characteristics of the stain(s) cited in this report were developed and its performance characteristic determined by the Dermatopathology Laboratory at [facility], directed by Dr. Robbin Dunbar. These tests need not be, and therefore are not, approved by the [place] Food and Drug Administration. The tests are used for clinical purposes. Billing Codes Specimen Charges Stain Charges 55658 1 4 1:26 PM CRACKING AND FANNING MACHINE OPERATOR DERMATOPATHOLOGY LABORATORY Embedded Images 1:26 PM CRACKING AND FANNING MACHINE OPERATOR DERMATOPATHOLOGY LABORATORY Pathology/Cytolo gy TISSUE SPECIMEN FROM SKIN / Unknown 10/05/2024 10:33 AM CRACKING AND FANNING MACHINE OPERATOR 10/05/2024 4:35 PM CRACKING AND FANNING MACHINE OPERATOR Elida Reyes DO LAB - PATHOLOGY/C YTOLOGY ORDERABLES DERMATOPATHOLOGY LABORATORY [facility] - Department of Dermatology [address], [address] [phone] * XR Chest 2Vw (09/25/2024 2:53 PM CRACKING AND FANNING MACHINE OPERATOR) Anatomical Region Laterality Modality Chest Digital Radiogra phy 09/25/2024 8:41 PM CRACKING AND FANNING MACHINE OPERATOR Impressions 09/25/2024 8:41 PM CRACKING AND FANNING MACHINE OPERATOR IMPRESSION: No acute cardiopulmonary abnormalities. > Interpreting Provider: Cheryl Cespedes MD on 09/25/2024 8:41 PM Narrative 09/25/2024 8:41 PM CRACKING AND FANNING MACHINE OPERATOR PROCEDURE: ??XR CHEST 2VW DATE/TIME OF EXAM: ??09/25/2024 2:53 PM CLINICAL INFORMATION: None relevant/not provided if blank. Indication: Z51.81: Encounter for therapeutic drug monitoring Additional History: COMPARISON: 08/31/2023 FINDINGS: Frontal and lateral views of the chest demonstrate a normal sized heart and pulmonary vasculature. No focal consolidation, pleural effusion or pneumothorax. No acute osseous abnormalities. Procedure Note Cheryl Cespedes MD - 09/25/2024 PROCEDURE: XR CHEST 2VW DATE/TIME OF EXAM: 09/25/2024 2:53 PM CLINICAL INFORMATION: None relevant/not provided if blank. Indication: Z51.81: Encounter for therapeutic drug monitoring Additional History: COMPARISON: 08/31/2023 FINDINGS: Frontal and lateral views of the chest demonstrate a normal sized heartand pulmonary vasculature. No focal consolidation, pleural effusion or pneumothorax. No acute osseous abnormalities. IMPRESSION: No acute cardiopulmonary abnormalities. > Interpreting Provider: Cheryl Cespedes MD on 09/25/2024 8:41 PM Perez Cervantes MD DIAGNOSTIC IMAGING O RDERABLES from Last 3 Months Care Teams Medical Insurance Biller Relationship Specialty [place] [address] [address] PCP - General Family Medicine 03/27/24
--- OUTSIDE RECORDS SUMMARY | 2024-11-13 17:05 | XMS_ITS ---
Author Organization [facility] Address [address] [place] [phone] Care Team Providers Care Video Tape Transferrer Name Role Phone Jaspreet Pearl Primary Care Provider Adriana Torre Unavailable [phone] Encounters Encounter Location Date Provider Diagnosis [address] [address] 07/24/2024 Adriana Ma Plan Of Treatment No Information Progress Notes * YARELIFabien PARKERClareOB:[birth year] (59 yo F)Acc No.[id number]:07/24/2024 Progress Notes Patient:?Hans PASCUAL Provider:?Adriana Ma MD :1965???Age:59 Y???Sex:Female D ate:07/24/2024 Address:[address] [place] [phone] Pcp:Jaspreet Pearl Subjective: * Chief Complaints: * ??? * Medical History:? Objective: * Vitals:? Assessment: Plan: * Treatment: * Billing Information: * Visit Code:? * Procedure Codes:? * Electronic signature of Little Ma MD on 11/13/2024 at 05:04 PM HEALTH OCCUPATIONS INSTRUCTOR Sign off status: Pending * Provider:?Ardiana Ma MD Date:?07/2024 Generated for Emma teran/Prashant/Artisitting on:?11/13/2024 05:04 PM HEALTH OCCUPATIONS INSTRUCTOR
--- OUTSIDE RECORDS SUMMARY | 2024-11-13 17:05 | XMS_ITS ---
Author Organization [facility] Address [address] [place] [phone] Care Team Providers Care Field Enumerator Name Role Phone Jaspreet Pearl Primary Care Provider Adriana Torre Unavailable [phone] Encounters Encounter Location Date Provider Diagnosis [address] [address] 05/29/2024 Adriana Ma Plan Of Treatment No Information Progress Notes * YARELIFabien PARKERClareOB:[birth year] (59 yo F)Acc No.[id number]:05/29/2024 Progress Notes Patient:?Hans PASCUAL Provider:?Adriana Ma MD :1965???Age:59 Y???Sex:Female D ate:05/29/2024 Address:[address] [place], [phone] Pcp:Jaspreet Pearl Subjective: * Chief Complaints: * ??? * Medical History:? Objective: * Vitals:? Assessment: Plan: * Treatment: * Billing Information: * Visit Code:? * Procedure Codes:? * Electronic signature of Little Ma MD on 11/13/2024 at 05:04 PM ROOF BOLTER OPERATOR Sign off status: Pending * Provider:?Adriana Ma MD Date:?05/15 Generated for Emma teran/Prashant/Artisitting on:?11/13/2024 05:04 PM ROOF BOLTER OPERATOR
--- OUTSIDE RECORDS SUMMARY | 2024-11-13 17:05 | XMS_ITS | Clinical Summary ---
Author Organization [facility] Address [address] [place] [address] Care Team Providers Care Supervisor Poultry Processing Name Role Phone Dayanara Plaza MD Primary Care Provider [phone] Source Comments [facility],non-owned Affiliates and Associated Physician Practices is amultiple site organization consisting of ambulatory clinics and hospital sitesin [place], [place], [place] and [place]. This disclosure is being madepursuant to the Care Everywhere program and may not contain all information available regarding this patient. Last updated 18.[facility] Allergies Active Allergy Reactions Criticality Noted Date [...] daily Active Azelastine HCl 137 MCG/SPRAY SOLN [place] 2 sprays into the nose 2 times [...] 06/01/2018 Encounter for therapeutic drug monitoring 2017 Encounters Date Type Department Care Team Description 10/27/2024 Orders Only [facility] - Rheumatology [address] [place] [phone] Perez Cervantes MD Polyarthritis; Encounter for therapeutic drug monitoring; Encounter for long-term (current) use of medications 10/25/2024 Orders Only [facility] - Rheumatology [address] [place] [phone] Perez Cervantes MD 10/19/2024 [facility] [address] [place] [phone] Perez Cervantes MD MEDICATION REFILL 10/16/2024 Refill [facility] - Rheumatology [address] [facility], [place] [address] Christian Pemberton MD MEDICATION REFILL 10/05/2024 Lab Requisition [facility] - DermPath Lab [address] [facility], [place] [address] Eric Elida IsabelleDO 09/25/2024 2:32 PM BRASS ROLLER - 09/25/2024 11:59 PM BRASS ROLLER Hospital Encounter [facility] DIAG[facility]STIC RAD OP [address] [place] [address] Perez Cervantes MD Discharge Disposition: Home or Self Care 09/25/2024 1:40 PM BRASS ROLLER Office Visit [facility] - Rheumatology [address] [place] [phone] Perez Cervantes MD Polyarthritis (Primary Dx); Encounter for therapeutic drug monitoring 09/25/2024 Travel 09/01/2024 Orders Only [facility] - Rheumatology [address] [place] [address] Perez Cervantes MD Polyarthritis; Encounter for therapeutic drug monitoring; Encounter for long-term (current) use of medications 08/30/2024 Orders Only [facility] - Rheumatology [facility] [place] [address] Perez Cervantes MD from Last 3 Months Immunizations Name Administration Dates Next Due FLU [...] Comments Blood Pressure 118/78 09/25/2024 1:24 PM BRASS ROLLER Pulse 69 09/25/2024 1:24 PM BRASS ROLLER Temperature 36.6 ??C (97.9 ??F) 09/25/2024 1:24 PM CS T Respiratory Rate 16 06/09/2021 2:48 PM CDT Oxygen Saturation 98% 09/25/2024 1:24 PM BRASS ROLLER Inhaled Oxygen Concentration - - Weight 77.8 kg (171 lb 9.6 oz) 09/25/2024 1:24 P M BRASS ROLLER Height 172.7 cm (5' 8 ) 09/25/2024 1:24 PM BRASS ROLLER Body Mass Index 26.09 09/25/2024 1:24 PM BRASS ROLLER Plan of Treatment Upcoming Encounters Date Type Department Care Team (Late st Contact Info) Description 03/27/2025 1:00 PM CDT Office Visit [facility] - Rheumatology [address] [place] [address], [place] [phone] Perez Cervantes MD [address] [place] [address] [place] [phone] Health Maintenance Due Date Last Done Comments COLOGUARD (AGES 45-75) - COLON CA SCREENING 1965 COLON MONITORING 1965 COLONOSCOPY - COLON CA SCREENING 1963 CT COLONOGRAPHY - COLON CA SCREENING 1965 Colorectal Cancer Screening 1963 FIT - COLON CA SCREENING 1963 FLEX SIG - COLON CA SCREENING 1963 LIPID TESTING 1963 PAP SMEAR 1963 HIV SCREENING 1978 DTAP/TDAP/TD VACCINES (1 - Tdap) 1982 ZOSTER VACCINE (1 of 2) 2013 COVID-19 VACCINE ( season) 2024 08/02/2023, 08/07/2022, 12/26/2021, Additional history exists INFLUENZA VACCINE (#1) 2024 , 09/01/2022, 08/21/2021, Additional history exists MAMMOGRAM 01/06/2025 01/06/2023, 02/2022, 07/11/2020, Additional history exists SCREENING FOR DIABETES 10/25/2027 , 08/30/2024, 07/04/2024, Additional history exists Respiratory Syncytial Virus (RSV) Vaccine Pt: or over 60 yrs (1 - 1-dose 75+ series) 2038 PNEUMOCOCCAL VACCINE Aged Out 08/16/2016 No long er eligible based on patient's age to complete this topic DEPRESSION SCREENING Completed 03/27/2024, 08/31/2023, 09/01/2022 HEPATITIS C SCREENING Completed 10/25/2024 , 09/30/2023, 03/23/2014, Additional history exists HEPATITIS B VACCINE Aged Out No longe r eligible based on patient's age to complete this topic HIB VACCINE Aged Out No longer eligi ble based on patient's age to complete this topic HPV VACCINE Aged Out No longer eligi ble based on patient's age to complete this topic MENINGOCOCCAL VACCINE Aged Out No donavan layo eligible based on patient's age to complete this topic Procedures Procedure Name Priority Date/Time Associated Diagnosis Comments QUANTIFERON-TB GOLD PLUS 1-TUBE 10/25/2024 7:42 AM BRASS ROLLER HEPATITIS C AB W/RFLX TO HCV RNA QN PCR Routine 10/25/2024 7:42 AM BRASS ROLLER Encounter for therapeutic drug monitoring HEPATITIS B SURFACE ANTIGEN W RFLX CONFIRMATION Routine 10/25/2024 7:42 AM BRASS ROLLER Encounter for therapeutic drug monitoring HEPATITIS B SURFACE ANTIBODY Routine 10/25/2024 7:42 AM BRASS ROLLER Encounter for therapeutic drug monitoring HEPATITIS B CORE ANTIBODY TOTAL Routine 10/25/2024 7:42 AM BRASS ROLLER Encounter for therapeutic drug monitoring URINALYSIS W/MICROSCOPIC REFLEX TO CULTURE Routine 10/25/2024 7:39 AM BRASS ROLLER Polyarthritis Encounter for therapeutic drug monitoring ERYTHROCYTE SEDIMENTATION RATE Routine 10/25/2024 7:39 AM BRASS ROLLER Polyarthritis Encounter for therapeutic drug monitoring C-REACTIVE PROTEIN Routine 10/25/2024 7: 39 AM BRASS ROLLER Polyarthritis Encounter for therapeutic drug monitoring COMPREHENSIVE METABOLIC PANEL Routine 10/25/2024 7:39 AM BRASS ROLLER Polyarthritis Encounter for therapeutic drug monitoring CBC W AUTO DIFFERENTIAL Routine 10/25/20 24 7:39 AM BRASS ROLLER Polyarthritis Encounter for therapeutic drug monitoring CULTURE URINE 10/25/2024 7:39 AM BRASS ROLLER CULTURE URINE REFLEXED II 10/25/2024 7:39 AM BRASS ROLLER DERMATOPATHOLOGY Routine 10/05/2024 10:3 3 AM BRASS ROLLER XR CHEST 2VW Routine 09/25/2024 2:53 PM BRASS ROLLER Encounter for therapeutic drug monitoring C-REACTIVE PROTEIN [...] QUANTIFERON-TB GOLD PLUS 1-TUBE (10/25/2024 7:42 AM BRASS ROLLER) Pathologist [facility] QuantiFERON TB Gold Plus NEGATIVE NEGATIVE [facility] [...] T-lymphocytes. For additional information, please refer to https://education.Syndero/faq/DXE668 (This link is being provided for informational/ educational purposes only.) Test Performed at: [facility] [address] [place], [place] ??[phone] NAVID SCOTT MD 10/25/2024 7:42 AM BRASS ROLLER 10/25/2024 7:42 AM BRASS ROLLER Perez Cervantes MD LAB - CHEMISTRY GERA DAVID [facility] [address] [place] [address] * HEPATITIS C AB W/RFLX TO HCV RNA QN PCR (10/25/2024 7:42 AM BRASS ROLLER) Pathologist [facility] Hepatitis C Antibody NON-REACTI VE NON-REACT ROMANA [facility] Comment: HCV antibody was non-reactive. There is no laboratory evidence of HCV infection. In most cases, no further action is required. However, if recent HCV exposure is suspected, a test for HCV RNA (test code 31845) is suggested. For additional information please refer to http://[employer].Syndero/faq/JHE83a0 (This link is being provided for informational/ educational purposes only.) Test Performed at: [facility] [address] [place], [place] ??[phone] NAVID SCOTT MD Blood BLOOD SPECIMEN / Unknown 10/25/2024 7:42 AM BRASS ROLLER 10/25/2024 7:42 AM BRASS ROLLER Perez Cervantes MD LAB - CHEMISTRY GERA DAVID Performing Organization Address [facility] Co de Phone Number [address] [address] * (ABNORMAL) HEPATITIS B SURFACE ANTIBODY (10/25/2024 7:42 AM BRASS ROLLER) Hepatitis B Virus Surface Antibody REACTIVE(A ) NON-REACT ROMANA [facility] Comment: Test Performed at: [facility] [address] [place] [address] ??[phone] NAVID SCOTT MD Blood BLOOD SPECIMEN / Unknown 10/25/2024 7:42 AM BRASS ROLLER 10/25/2024 7:42 AM BRASS ROLLER Perez Cervantes MD LAB - CHEMISTRY GERA DAVID Performing Organization Address [facility] Co de Phone Number [address] [address] * HEPATITIS B CORE ANTIBODY TOTAL (10/25/2024 7:42 AM BRASS ROLLER) Hepatitis B Core Virus Antibody Total NON-REACTI VE NON-REACT ROMANA [facility] Comment: For additional information, please refer to http://[employer].Syndero/faq/VJD456 (This link is being provided for informational/ educational purposes only.) Test Performed at: [facility] [address] [place] [address] ??[phone] NAVID SCOTT MD Blood BLOOD SPECIMEN / Unknown 10/25/2024 7:42 AM BRASS ROLLER 10/25/2024 7:42 AM BRASS ROLLER ePrez Cervantes MD LAB - CHEMISTRY GERA MANDEEPDEMARCO Performing Organization Address [facility] de Phone Number [address] [address] * HEPATITIS B SURFACE ANTIGEN W RFLX CONFIRMATION (10/25/2024 7:42 AM BRASS ROLLER) Pathologist [facility] Hepatitis B Virus Surface Antigen NON-REACTI VE NON-REACT ROMANA [facility] Comment: For additional information, please refer to http://education.Syndero/faq/NSA219 (This link is being provided for informational/ educational purposes only.) Test Performed at: [facility] [address] [place] [address] ??[phone] NAVID SCOTT MD Blood BLOOD SPECIMEN / Unknown 10/25/2024 7:42 AM BRASS ROLLER 10/25/2024 7:42 AM BRASS ROLLER Perez Cervantes MD LAB - CHEMISTRY GERA DAVID Performing Organization Address [facility] de Phone Number [address] [address] * CULTURE URINE REFLEXED II (10/25/2024 7:39 AM BRASS ROLLER) Only the most recent of2 resultswithin the time period is included. [facility] Reflexive Urine Culture See Below [facility] Comment: CULTURE INDICATED - RESULTS TO FOLLOW Test Performed at: [facility] ??[phone] NAVID SCOTT MD 10/25/2024 7:39 AM BRASS ROLLER 10/25/2024 7:40 AM BRASS ROLLER Perez Cervantes MD LAB - MICROBIOLOGY O RDERABLES Performing Organization Address [facility] de Phone Number [address] [address] * (ABNORMAL) URINALYSIS W/MICROSCOPIC REFLEX TO CULTURE (10/25/2024 7:39 AM BRASS ROLLER) Only the most recent of2 resultswithin the time period is included. Color UA YELLOW YELLOW [facility] Appearance CLOUDY(A) CLEAR [facility] Specific [place] UA 1.023 1.001 - 1.035 [facility] pH [...] elements seen were reported. Test Performed at: [facility] ??[phone] NAVID SCOTT MD Urine URINE SPECIMEN OBTAINED BY CLEAN CATCH PROCEDURE / Unknown 10/25/2024 7:39 AM BRASS ROLLER 10/25/2024 7:40 AM BRASS ROLLER Perez Cervantes MD LAB - URINALYSIS ORD ERABLES Performing Organization Address [facility] de Phone Number [address] [address] * C-REACTIVE PROTEIN (10/25/2024 7:39 AM BRASS ROLLER) Only the most recent of2 resultswithin the time period is included. C-Reactive Protein <3.0 <8.0 mg/L [facility] Comment: Test Performed at: [facility] [address] ??[phone] NAVID SCOTT MD Blood BLOOD SPECIMEN / Unknown 10/25/2024 7:39 AM BRASS ROLLER 10/25/2024 7:40 AM BRASS ROLLER Perez Cervantes MD LAB - CHEMISTRY ORDE RABDEMARCO Performing Organization Address [facility] Co de Phone Number [address] [address] * CULTURE URINE (10/25/2024 7:39 AM BRASS ROLLER) Only the most recent of2 resultswithin the time period is included. Pathologist [facility] Culture [facility] Comment: ??CULTURE, URINE, ROUTINE ?Micro Number: ?[id number] ??Test Status: ? Final ??Specimen Source: ?? Urine ??Specimen Quality: ??Adequate ??Result: ?No Growth REPORT COMMENT: FASTING:YES Test Performed at: [facility] ??[phone] NAVID SCOTT MD 10/25/2024 7:39 AM BRASS ROLLER 10/25/2024 7:40 AM BRASS ROLLER Perez Cervantes MD LAB - MICROBIOLOGY O RDERABLES Performing Organization Address [facility] de Phone Number [address] [address] * ERYTHROCYTE SEDIMENTATION RATE (10/25/2024 7:39 AM BRASS ROLLER) Only the most recent of2 resultswithin the time period is included. Pathologist [facility] Erythrocyte Sedimentation Rate Westergren 6 < OR = 30 mm/h [facility] Comment: Test Performed at: [facility] [address] ??[phone] NAVID SCOTT MD Blood BLOOD SPECIMEN / Unknown 10/25/2024 7:39 AM BRASS ROLLER 10/25/2024 7:40 AM BRASS ROLLER Perez Cervantes MD LAB - HEMATOLOGY ORD ERABLES Performing Organization Address [facility] de Phone Number [address] [address] * (ABNORMAL) CBC WITH DIFFERENTIAL (10/25/2024 7:39 AM BRASS ROLLER) Only the most recent of2 resultswithin the time period is included. Pathologist [facility] White Blood Cell Count 4.5 3.8 - [...] 0.4 % [facility] Comment: Test Performed at: [facility] [place], [place] ??[address] NAVID SCOTT MD Blasts [facility] nRBC [facility] Comments [facility] Comment: Test Performed at: [facility] [place], [place] ??[phone] NAVID SCOTT MD Blood BLOOD SPECIMEN / Unknown 10/25/2024 7:39 AM BRASS ROLLER 10/25/2024 7:40 AM BRASS ROLLER Perez Cervantes MD LAB - HEMATOLOGY ORD ERABLES [facility] [address] [place] [address] * COMPREHENSIVE METABOLIC PANEL (10/25/2024 7:39 AM BRASS ROLLER) Only the most recent of2 resultswithin the time period is included. Glucose 83 65 - 99 mg/dL [facility] Comment: ? Fasting reference interval BUN 18 7 - 25 mg/dL [facility] Creatinine 0.79 0.50 - 1.05 mg/dL [facility] eGFR by Cystatin C 85 > OR = 60 mL/min/1. 73m2 [facility] BUN/Creatinine Ratio SEE NOTE: 6 - (calc) [facility] Comment: ?? Not Reported: [...] 29 U/L [facility] Comment: Test Performed at: [facility] [address] ??[phone] NAVID SCOTT MD Blood BLOOD SPECIMEN / Unknown 10/25/2024 7:39 AM BRASS ROLLER 10/25/2024 7:40 AM BRASS ROLLER Perez Cervantes MD LAB - CHEMISTRY GERA DAVID Performing Organization Address City/State/[facility] Co pa Phone Number [facility] [address] [place] [address] * DERMATOPATHOLOGY (10/05/2024 10:33 AM BRASS ROLLER) Case Report Dermatopathology Report ? Case: [id number] ? Authorizing Provider: ??Elida Reyes, DO ?? Collected: ? 10/05/2024 10:33 AM ? Ordering Location: ? [facility] - ??Received: ?10/05/2024 04:35 PM ? DermPath Lab ? Pathologist: ? Kassandra Maurer MD ? Specimen: ?Skin, left upper arm ? 4 1:26 PM BRASS ROLLER DERMATOPATHOLOGY LABORATORY Final Diagnosis Specimen A. SKIN, left upper arm: LICHEN PLANUS-LIKE KERATOSIS (BENIGN LICHENOID KERATOSIS) (L82.1) 4 1:26 PM BRASS ROLLER DERMATOPATHOLOGY LABORATORY Clinical History R/O NMSC 4 1:26 PM BRASS ROLLER DERMATOPATHOLOGY LABORATORY Gross Description Specimen A: Received is one formalin filled container labeled with the patient's name and designated left upper arm. The specimen consists of a shave biopsy measuring 8x7x1 mm. Jar 0. 4 1:26 PM BRASS ROLLER DERMATOPATHOLOGY LABORATORY Microscopic Description Specimen A. SKIN, left upper arm: The epidermis is mildly acanthotic. There is a lichenoid infiltrate with vacuolar changes of basilar keratinocytes and scattered necrotic keratinocytes. 4 1:26 PM BRASS ROLLER DERMATOPATHOLOGY LABORATORY Disclaimer An external and internal positive and negative controls are appropriate for the histochemical, immunohistochemical and immunofluorescence stain(s) in this case (if any), except where stated explicitly. The performance characteristics of the stain(s) cited in this report were developed and its performance characteristic determined by the Dermatopathology Laboratory at [facility], directed by Dr. Robbin Dunbar. These tests need not be, and therefore are not, approved by the [place] Food and Drug Administration. The tests are used for clinical purposes. Billing Codes Specimen Charges Stain Charges 84836 1 4 1:26 PM BRASS ROLLER DERMATOPATHOLOGY LABORATORY Embedded Images 4 1:26 PM BRASS ROLLER DERMATOPATHOLOGY LABORATORY Pathology/Cytolo gy TISSUE SPECIMEN FROM SKIN / Unknown 10/05/2024 10:33 AM BRASS ROLLER 10/05/2024 4:35 PM BRASS ROLLER Elida Reyes DO LAB - PATHOLOGY/C YTOLOGY ORDERABLES Performing Organization Address City/State/[facility] Co de Phone Number DERMATOPATHOLOGY LABORATORY [facility] - Department of Dermatology [address], [address] [phone] * XR Chest 2Vw (09/25/2024 2:53 PM BRASS ROLLER) Anatomical Region Laterality Modality Chest Digital Radiogra phy 09/25/2024 8:41 PM BRASS ROLLER Impressions 09/25/2024 8:41 PM BRASS ROLLER IMPRESSION: No acute cardiopulmonary abnormalities. > Interpreting Provider: Cheryl Cespedes MD on 09/25/2024 8:41 PM Narrative 09/25/2024 8:41 PM BRASS ROLLER PROCEDURE: ??XR CHEST 2VW DATE/TIME OF EXAM: [...] RDERABLES from Last 3 Months Care Teams Supervisor Poultry Processing Relationship Specialty [place] [address] [address] PCP - General Family Medicine 03/27/24
--- OUTSIDE RECORDS SUMMARY | 2024-11-13 17:05 | XMS_ITS ---
Author Organization [facility] Address [address] [place] [address] Care Team Providers Care Two Needle Machine Operator Name Role Phone Jaspreet Pearl Primary Care Provider Adriana Torre Unavailable [phone] ZZ-Migration, Provider Unavailable Unavailab le Allergies Allergen (clinical drug ingredient) Drug/Non Drug Allergy documented on EMR Reaction Allergy Type Onset Date Status Levaquin hallucinations Drug Allergy Ac tive REASON FOR VISIT [facility] To [facility] Conversion Encounter Medications Medication SIG (Take, Route, Frequency, Duration) Notes Start Date End Date Status Methotrexate 2.5 MG DIRECTED ORALLY ONCE A WEEK for 30 *Please review and pick correct strength-formulat ion from IpercastZighra options. If intended option is not shown, discontinue and re-order from Quick Search* 07/24/2021 Active busPIRone HCl 15 MG 1 tab(s) orally once daily for 30 days 07/24/2021 Active Arabella Allergy 180 MG 1 tab(s) orally once a day for 30 day(s) Active SIT (TRADITIONAL) VARIABLE PER SCHEDULE SC PER SCHEDULE for TO BE DETERMINED *Please review for potential replacement for e-prescription and drug interaction check* Active Montelukast Sodium 10 MG 1 tab(s) orally once a day for 90 days Active Enbrel 50 MG/ML for 28 Acti ve Folic Acid 1 MG 1 tab(s) orally once a day for 30 day(s) Active Multivitamin MULTIPLE VITAMINS 1 CAP(S) ORALLY ONCE A DAY for 30 DAY(S) *Please review and pick correct strength-formulat ion from Goojet options. If intended option is not shown, discontinue and re-order from Quick Search* Active VITAMIN C PLUS ZINC VITAMIN C WITH ZINC 1 TAB(S) ORALLY ONCE A DAY *Please review for potential replacement for e-prescription and drug interaction check* Active ProAir RespiClick 90 MCG 2 PUFFS Q 4-6 HOURS PER ASTHMA ACTION PLAN INHALED Q4-6 HOURS, PRN AND PER THE ASTHMA ACTION PLAN for 30 DAY(S) *Please review and pick correct strength-formulat ion from Goojet options. If intended option is not shown, discontinue and re-order from Quick Search* Active Auvi-Q 0.3 MG/0.3ML as directed intramuscularly once for 1 day Active Estradiol 0.05 MG/24 HR 1 EA INTRAVAGINALLY EVERY 3 MONTHS for 1 DOSE(S) *Please review and pick correct strength-formulat ion from Goojet options. If intended option is not shown, discontinue and re-order from Quick Search* Active traZODone HCl 50 MG as directed orally Active Gabapentin 100 MG 1 cap(s) orally 3 times a day Active Nabumetone 1000 MG 1 tab(s) orally once a day Active NASAL WASHES N/A DIRECTED INTRANASALLY NEEDED for 30 *Please review for potential replacement for e-prescription and drug interaction check* Active Azelastine HCl 137 MCG/SPRAY 2 spray(s) intranasally 2 times a day, PRN for 30 day(s) Active Encounters Encounter Location Date Provider Diagnosis [address] [address] 04/29/2024 Provider AndieZ-Roselia Allergic rhinitis due to pollen J30.1 Assessments Encounter Date Diagnosis (ICD Code) Assessment Notes Treatment Notes Treatment Clinical Notes Section Notes 04/29/2024 Allergic rhinitis due to pollen (ICD-10 - J30.1) Plan Of Treatment Medication Medication Name Sig Start Date Stop Date Notes SIT (TRADITIONAL) VARIABLE PER SCHEDULE SC PER SCHEDULE for TO BE DETERMINED *Please review for potential replacement for e-prescription and drug interaction check* Progress Notes * Licha PASCUALOB:[birth year] (59 yo F)Acc No.[id number]:04/29/2024 Patient:?Hans PASCUAL Provider:?Provider Migration :1965???Age:59 Y???Sex:Female D ate:04/29/2024 Address:[address] [place], [place] [phone] Pcp:Jaspreet Pearl Subjective: * Chief Complaints: * ?[facility] * Medical History:? * Medications:?Taking ProAir R espiClick 90 MCG INHALATION 2 PUFFS Q 4-6 HOURS PER ASTHMA ACTION PLAN INHALED Q4-6 HOURS, PRN AND PER THE ASTHMA ACTION PLAN , Notes to Pharmacist: *Please review and pick correct strength-formulation from Goojet options. If intended option is not shown, discontinue and re-order from Quick Search*, Taking Montelukast Sodium 10 MG Tablet 1 tab(s) orally once a day , Taking ProAir RespiClick 90 MCG INHALATION 2 PUFFS Q 4-6 HOURS PER ASTHMA ACTION PLAN INHALED Q4-6 HOURS, PRN AND PER THE ASTHMA ACTION PLAN , Notes to Pharmacist: *Please review and pick correct strength-formulation from OwnerListensan options. If intended option is not shown, discontinue and re-order from Quick Search*, Taking Arabella Allergy 180 MG Tablet 1 tab(s) orally once a day , Taking Azelastine HCl 137 MCG/SPRAY Solution 2 spray(s) intranasally 2 times a day, PRN , Taking NASAL WASHES N/A 1 QUART OF STERILIZED TAP WATER OR DISTILLED WATER, 1 TSP NACL, 1 PINCH OF BAKING SODA DIRECTED INTRANASALLY NEEDED , Notes to Pharmacist: *Please review for potential replacement for e-prescription and drug interaction check*, Taking Auvi-Q 0.3 MG/0.3ML Solution Auto-injector as directed intramuscularly once , Taking Nabumetone 1000 MG Tablet 1 tab(s) orally once a day , Taking Gabapentin 100 MG Capsule 1 cap(s) orally 3 times a day , Taking traZODone HCl 50 MG Tablet as directed orally , Taking Estradiol 0.05 MG/24 HR RING 1 EA INTRAVAGINALLY EVERY 3 MONTHS , Notes to Pharmacist: *Please review and pick correct strength-formulation from Goojet options. If intended option is not shown, discontinue and re-order from Quick Search*, Taking VITAMIN C PLUS ZINC VITAMIN C WITH ZINC TABLET, DISINTEGRATING 1 TAB(S) ORALLY ONCE A DAY , Notes to Pharmacist: *Please review for potential replacement for e-prescription and drug interaction check*, Taking Multivitamin MULTIPLE VITAMINS CAPSULE 1 CAP(S) ORALLY ONCE A DAY , Notes to Pharmacist: *Please review and pick correct strength-formulation from Ipercastspan options. If intended option is not shown, discontinue and re-order from Quick Search*, Taking Folic Acid 1 MG Tablet 1 tab(s) orally once a day , Taking Enbrel 50 MG/ML Solution Prefilled Syringe , Taking busPIRone HCl 15 MG Tablet 1 tab(s) orally once daily , Taking Methotrexate 2.5 MG TABLET DIRECTED ORALLY ONCE A WEEK , Notes to Pharmacist: *Please review and pick correct strength-formulation from Ipercastspan options. If intended option is not shown, discontinue and re-order from Quick Search* * Allergies:?Levaquin: halluci nations. Objective: * Vitals:? Assessment: * Assessment: 1.?Allergic rhinitis due to pollen - J30.1 (Primary)??? Plan: * Treatment: * Billing Information: * Visit Code:? * Procedure Codes:? * Electronic signature of Malachi LAWS-Migration on 11/13/2024 at 05:04 PM DOLLY OPERATOR Sign off status: Pending * Provider:?Provider Migration Date:?04/29 Generated for Emma teran/Prashant/Kobe on:?11/13/2024 05:04 PM DOLLY OPERATOR
--- OUTSIDE RECORDS SUMMARY | 2024-11-13 17:06 | XMS_ITS | Encounter Summary ---
Author Organization [facility] Address [address] [facility] [place] [address] Care Team Providers Care Donor Services Technician Name Role Phone Jaspreet Pearl MD Primary Care Provider + Encounter Details Date Type Department Care Team (Latest Contact Info) Description 08/31/2023 2:54 PM CDT Hospital Encounter [facility] [address] [place] [phone] Perez Cervantes MD [address] [facility] 2L [place] [address] Discharge Disposition: Home or Self Care Social History Tobacco Use Types Packs/Day Years Used Date Smoking Tobacco: Former Cigarettes Q uit: 11/15/1998 Smokeless Tobacco: Never Alcohol Use Standard Drinks/Week Comments No 0 (1 standard drink = 0.6 oz pur e alcohol) PHQ-2 Answer Date Recorded Patient Health Questionnaire-2 Score 0 08/31/2023 Sex and Gender Information Value Date Recorded Sex Assigned at Not on file Gender Identity Not on file Sexual Orientation Not on file documented as of this encounter Medications at Time of Discharge Medication Sig Dispensed Refills Start Date End Date Azelastine HCl 137 MCG/SPRAY SOLN Hominy 2 sprays into the nose 2 times daily dicyclomine (BENTYL) 20 MG tablet Take 1 (one) tablet by mouth as needed fexofenadine (Arabella) 180 MG tablet Take 1 (one) tablet by mouth every 24 hours methotrexate 2.5 MG tablet TAKE 8 TABLETS EVERY 7 DAYS 96 tablet 3 01/04/2023 Multiple Vitamin (MULTI VITAMIN PO) Take 1 tablet by mouth once daily nabumetone (Relafen) 500 MG tablet TAKE 2 TABLETS TWICE A DAY 360 tablet 3 01/04/2023 polyethylene glycol 3350 (MIRALAX) 17 GM/SCOOP powder Take 17 (seventeen) g by mouth every 24 hours as needed ALPRAZolam (XANAX) 0.25 MG tablet Take 1 (one) tablet by mouth once daily as needed 01/26/2020 03/27/2024 busPIRone (BUSPAR) 15 MG tablet Take 1 (one) tablet by mouth 2 times daily 10/07/2020 03/27/2024 citalopram (CeleXA) 20 MG tablet Take 1 (one) tablet by mouth once daily 07/26/2023 03/27/2024 cyclobenzaprine (Flexeril) 5 MG tablet Take 1 (one) tablet by mouth 3 times daily as needed 08/30/2023 09/09/2023 ENBREL 50 MG/ML prefilled syringe INJECT 50 MG (1 SYRINGE) UNDER THE SKIN ONCE WEEKLY 12 syringe 3 02/03/2019 07/11/2024 folic acid (Folvite) 1 MG tabletIndications:Polya rthritis TAKE 1 TABLET BY MOUTH DAILY 30 tablet 11 04/02/2023 04/20/2024 montelukast (Singulair) 10 MG tablet Take 1 (one) tablet by mouth once daily 05/27/2022 03/27/2024 omega 3 (FISH OIL) 1200 MG capsule Take 1 (one) capsule by mouth once daily 03/27/2024 [place]-3 Fatty Acids (Fish Oil) 1200 MG 1 cap 4 documented as of this encounter Plan of Treatment Upcoming Encounters Date Type Department Care Team (Late st Contact Info) Description 03/27/2025 1:00 PM CDT Office Visit [facility] - Rheumatology [address] [place] [address], [facility] [place] [phone] Perez Cervantes MD [address] [place] [address] [place] [address] documented as of this encounter Procedures Procedure Name Priority Date/Time Associated Diagnosis Comments XR CHEST 2VW Routine 08/31/2023 3:04 PM CDT Encounter for long-term (current) use of medications documented in this encounter Results * XR CHEST 2VW (08/31/2023 3:04 PM CDT) Anatomical Region Laterality Modality Chest Radiographic Corin ging 08/31/2023 3:08 PM CDT Narrative 09/01/2023 1:34 AM CDT PROCEDURE: ??XR CHEST 2VW, DATE/TIME OF EXAM: ??08/31/2023 3:04 PM, LOCATION [facility] INDICATION: Z79.899: Encounter for long-term (current) use of medications ADDITIONAL CLINICAL INFORMATION: Ordering Provider Reason For Exam: ??Monitoring Medication COMPARISON: Chest radiograph dated 09/01/2022 FINDINGS/IMPRESSION: There is no focal consolidation, pleural effusion, or pneumothorax. The cardiomediastinal silhouette is normal. The visible bony thorax is intact. > Dictated by Hemanth Vazquez MD (rn residential). Dann Osorio MD have personally reviewed and interpreted this examination/study. > Interpreting Provider: Dann Mccoy MD on 09/01/2023 1:34 AM Procedure Note Dann Mccoy MD - 09/01/2023 PROCEDURE: XR CHEST 2VW, DATE/TIME OF EXAM: 08/31/2023 3:04 PM, LOCATION [facility] INDICATION: Z79.899: Encounter for long-term (current) use of medications ADDITIONAL CLINICAL INFORMATION: Ordering Provider Reason For Exam: Monitoring Medication COMPARISON: Chest radiograph dated 09/01/2022 FINDINGS/IMPRESSION: There is no focal consolidation, pleural effusion, or pneumothorax. The cardiomediastinal silhouette is normal. The visible bony thorax isintact. > Dictated by Hemanth Vazquez MD (rn residential). Dann Osorio MD have personally reviewed and interpreted this examination/study. > Interpreting Provider: Dann Mccoy MD on 09/01/2023 1:34 AM Perez Cervantes MD DIAGNOSTIC IMAGING O RDERABLES documented in this encounter Visit Diagnoses Diagnosis Encounter for long-term (current) use of medications Encounter for long-term (current) use of other medications documented in this encounter Care Teams Donor Services Technician Relationship Specialty Start Date End Date Jaspreet Pearl MD PCP - General 08/08/18 03/26/24 documented as of this encounter
--- OUTSIDE RECORDS SUMMARY | 2024-11-13 17:06 | XMS_ITS | Encounter Summary ---
Author Organization [facility] Address [address] [facility] [place] [address] Care Team Providers Care Bus Operator Name Role Phone Dayanara Plaza MD Primary Care Provider Encounter Details Date Type Department Care Team (Late Contact Info) Description 10/27/2024 Orders Only [facility] - Rheumatology [address] [place] [phone] Perez Cervantes MD [address] [place] [address] [place] [address] Polyarthritis; Encounter for therapeutic drug monitoring; Encounter for long-term (current) use of medications Social History Tobacco Use Types Packs/Day Years [...] on file documented as of this encounter Plan of Treatment Upcoming Encounters Date Type Department Care Team (Late Contact Info) Description 03/27/2025 1:00 PM CDT Office Visit [facility] - Rheumatology [address] [place] [phone] Perez Cervantes MD [address] [place] [address] documented as of this encounter Visit Diagnoses Diagnosis Polyarthritis Unspecified polyarthropathy or polyarthritis, site unspecified Encounter for therapeutic drug monitoring Encounter for long-term (current) use of medications Encounter for long-term (current) use of other medications documented in this encounter Care Teams Bus Operator Relationship Specialty [place] [address] [address] PCP - General Family Medicine 03/27/24 documented as of this encounter
--- OUTSIDE RECORDS SUMMARY | 2024-11-13 17:06 | XMS_ITS | Encounter Summary ---
Author Organization [facility] Address [address] [facility] [place] [address] Care Team Providers Care Senior Core Java Developer Name Role Phone Jaspreet Pearl MD Primary Care Provider + Encounter Details Date Type Department Care Team (Late Contact Info) Description 09/25/2022 Orders Only [facility] [address] [place] [phone] Perez Cervantes MD [address] [place] [address] [address] [place] [address] Social History Tobacco Use Types Packs/Day Years Used Date Smoking Tobacco: Former Cigarettes Q uit: 11/15/1998 Smokeless Tobacco: Never Alcohol Use Standard Drinks/Week Comments No 0 (1 standard drink = 0.6 oz pur e alcohol) PHQ-2 Answer Date Recorded PHQ2 TOTAL SCORE 0 09/01/2022 Sex and Gender Information Value Date Recorded Sex Assigned at Not on file Gender Identity Not on file Sexual Orientation Not on file documented as of this encounter Plan of Treatment Upcoming Encounters Date Type Department Care Team (Late Contact Info) Description 03/27/2025 1:00 PM CDT Office Visit [facility] - Rheumatology [address] [place] [phone] Perez Cervantes MD [address] [place] [address] [address] [place] [phone] documented as of this encounter Procedures Procedure Name Priority Date/Time Associated Diagnosis Comments QUANTIFERON-TB GOLD PLUS 1-TUBE 09/25/2022 8:39 AM GEOPHYSICAL LABORATORY CHIEF CULTURE URINE REFLEXED II 09/25/2022 8:39 AM GEOPHYSICAL LABORATORY CHIEF CULTURE URINE 09/25/2022 8:39 AM GEOPHYSICAL LABORATORY CHIEF documented in this encounter Results * CULTURE URINE (09/25/2022 8:39 AM GEOPHYSICAL LABORATORY CHIEF) Pathologist [facility] Culture QUEST Comment: ??CULTURE, URINE, ROUTINE ?Micro Number: ?[id number] ??Test Status: ? Final ??Specimen Source: ?? Urine ??Specimen Quality: ??Adequate ??Result: ?No Growth Test Performed at: [facility] ??[phone] NAVID SCOTT MD 09/25/2022 8:39 AM GEOPHYSICAL LABORATORY CHIEF 09/25/2022 8:40 AM GEOPHYSICAL LABORATORY CHIEF Perez Cervantes MD LAB - MICROBIOLOGY O RDERABLES [address] [address] * QUANTIFERON-TB GOLD PLUS 1-TUBE (09/25/2022 8:39 AM GEOPHYSICAL LABORATORY CHIEF) Pathologist [facility] QuantiFERON TB Gold Plus NEGATIVE NEGATIVE [facility] Comment: Negative test result. M. tuberculosis complex infection unlikely. NIL 0.02 IU/mL [facility] MITOGEN MINUS NIL RESULT >10.00 IU/mL [facility] TB1-NIL 0.01 IU/mL [facility] TB2-NIL 0.01 IU/mL [facility] Comment: The Nil tube value [...] T-lymphocytes. For additional information, please refer to https://education.MOVE Guides.PinkelStar/faq/AFO972 (This link is being provided for informational/ educational purposes only.) Test Performed at: [facility] [place] [address] [place], [place] ??[address] ASPEN HOLLINGSWORTH DO,MPH 09/25/2022 8:39 AM GEOPHYSICAL LABORATORY CHIEF 09/25/2022 8:40 AM GEOPHYSICAL LABORATORY CHIEF Perez Cervantes MD LAB - CHEMISTRY GERA DAVID Performing Organization Address [facility] de Phone Number [address] [address] * CULTURE URINE REFLEXED II (09/25/2022 8:39 AM GEOPHYSICAL LABORATORY CHIEF) Reflexive Urine Culture See Below [facility] Comment: CULTURE INDICATED - RESULTS TO FOLLOW Test Performed at: [facility] ??[address] NAVID SCOTT MD 09/25/2022 8:39 AM GEOPHYSICAL LABORATORY CHIEF 09/25/2022 8:40 AM GEOPHYSICAL LABORATORY CHIEF Perez Cervantes MD LAB - MICROBIOLOGY O RDERABLES Performing Organization Address City/[facility] Co de Phone Number [address] [address] documented in this encounter Visit Diagnoses Not on filedocumented in this encounter Care Teams Senior Core Java Developer Relationship Specialty Start Date End Date Jaspreet Pearl MD PCP - General 08/08/18 03/26/24 documented as of this encounter
--- OUTSIDE RECORDS SUMMARY | 2024-11-13 17:06 | XMS_ITS | Encounter Summary ---
Author Organization [facility] Address [address] [facility] [place] [address] Care Team Providers Care Sprayer Hand Name Role Phone Jaspreet Pearl MD Primary Care Provider + Encounter Details Date Type Department Care Team (Latest Contact Info) Description 11/30/2023 Travel Social History Tobacco Use Types Packs/Day Years [...] Office Visit [facility] - Rheumatology [address] [place] [address], [place] [phone] Perez Cervantes MD [address] [place] [address] [address] [place] [phone] documented as of this encounter Visit Diagnoses Not on filedocumented in this encounter Care Teams Sprayer Hand Relationship Specialty Start Date End Date Jaspreet Pearl MD [phone] (work) PCP - General 08/08/18 03/26/24 documented as of this encounter
--- OUTSIDE RECORDS SUMMARY | 2024-11-13 17:06 | XMS_ITS | Encounter Summary ---
Author Organization [facility] Address [address] [place] [address] Care Team Providers Care Railroad Brake Operator Name Role Phone Dayanara Plaza MD Primary Care Provider Encounter Details Date Type Department Care Team (Latest Contact Info) Description 03/27/2024 Travel Social History Tobacco Use Types Packs/Day Years Used Date Smoking Tobacco: Former Cigarettes Q uit: 11/15/1998 Smokeless Tobacco: Never Alcohol Use Standard Drinks/Week Comments No 0 (1 standard drink = 0.6 oz pur e alcohol) PHQ-2 Answer Date Recorded Patient Health Questionnaire-2 Score 0 03/27/2024 Sex and Gender Information Value Date Recorded Sex Assigned at Not on file Gender Identity Not on file Sexual Orientation Not on file documented as of this encounter Plan of Treatment Upcoming Encounters Date Type Department Care Team (Late st Contact Info) Description 03/27/2025 1:00 PM CDT Office Visit [facility] - Rheumatology [address] [place] [address], [place] [address] Perez Cervantes MD [address] [place] [address] [address] [place] [address] documented as of this encounter Visit Diagnoses Not on filedocumented in this encounter Care Teams Railroad Brake Operator Relationship Specialty [place] [id number] [phone] PCP - General Family Medicine 03/27/24 documented as of this encounter
--- OUTSIDE RECORDS SUMMARY | 2024-11-13 17:06 | XMS_ITS | Encounter Summary ---
Author Organization [facility] Address [address] [place] [address] Care Team Providers Care Supervisor Buffing And Pasting Name Role Phone Dayanara Plaza MD Primary Care Provider [phone] Reason for Referral * Evaluate & Treat (Routine) - Open Specialty Diagnoses / Procedures Referred By Chalino bazan Referred To Contact Orthopedics Diagnoses Polyarthritis Perez Cervantes MD [address] [place] [address] [address] [place] [address] Zack De Jesus DO [address] [place] [phone] Referral ID Status Reason Start Date Expiration Date V isits Requested Visits Authorized [id number] Open Specialty Services Required 09/25/2024 09/25/2025 1 1 CMA Reason for Visit * Reason Comments Arthritis Encounter Details Date Type Department Care Team (Latest Contact Info) Description 09/25/2024 1:40 PM LPN CMA Office Visit [facility] - Rheumatology [address] [place] [address], [place] [address] Perez Cervantes MD [address] [place] [address] [address] [place] [address] Polyarthritis (Primary Dx); Encounter for therapeutic drug monitoring Social History Tobacco Use Types Packs/Day Years [...] on file documented as of this encounter Last Filed Vital Signs Vital Sign Reading Time Taken Comments Blood Pressure 118/78 09/25/2024 1:24 PM LPN CMA Pulse 69 09/25/2024 1:24 PM LPN CMA Temperature 36.6 ??C (97.9 ??F) 09/25/2024 1:24 PM CS T Respiratory Rate - - Oxygen Saturation 98% 09/25/2024 1:24 PM LPN CMA Inhaled Oxygen Concentration - - Weight 77.8 kg (171 lb 9.6 oz) 09/25/2024 1:24 P M LPN CMA Height 172.7 cm (5' 8 ) 09/25/2024 1:24 PM LPN CMA Body Mass Index 26.09 09/25/2024 1:24 PM LPN CMA documented in this encounter Progress Notes * Perez Cervantes MD - 09/25/2024 1:41 PM CST (Prob #1) Polyarthritis (Abs Negative (No Erosions/JSN) (Prob #2) OA Hands (Labs ) Recent Labs Component Name 08/30/24 0738 07/04/24 0736 02/14/24 0733 03/18/18 0735 01/07/18 0744 10/22/17 0734 08/13/17 0734 WBC 5.8 3.4* 4.7 - 4.4 4.3 3.7* RBC 4.01 3.92 4.02 - 4.14 4.33 4.31 HGB 12.9 12.5 12.7 - 12.5 13.1 13.0 HCT 40.1 39.3 37.8 - 37.8 40.0 39.4 MCV 100.0 100.3* 94.0 - 91.3 92.4 91.4 MCHC 32.2 31.8* 33.6 - 33.1 32.8 33.1 PLTCOUNT 197 217 204 - - - - NEUTPCT - - - - 55.7 60.3 65.4 LYMPHPCT 36.3 41.5 40.3 - - - - EOSINPCT 1.9 1.8 2.1 - - - - BASOPHILPCT 0.7 0.3 0.4 - - - - NEUTABS - - - - 2,451 2,593 2,420 - = values in this interval not displayed. ESR 17; CRP <0.3 UA WNL; Xrays showed Hands/Feet. No erosions/JSN. Recent Labs Component Name 08/30/24 0738 07/04/24 0736 02/14/24 0733 05/28/22 0817 05/15/22 1029 03/20/22 0720 01/22/22 0746 03/18/18 0735 01/07/18 0744 10/22/17 0734 08/13/17 0734 SODIUM 142 142 139 - 140 140 139 - - - - NA - - - - - - - - 140 142 140 POTASSIUM 4.3 4.3 4.3 - 4.4 4.1 4.1 - - - - CHLORIDE 105 107 105 - 105 104 102 - - - - CO2 29 27 29 - 27 29 28 - 28 27 22 BUN 14 13 17 - 17 23 19 - 16 18 16 CREATININE 0.77 0.72 0.77 - 0.78 0.80 0.81 - 0.82 0.83 0.81 GLUCOSE 82 89 89 - 86 81 86 - - - - CALCIUM 9.4 9.4 9.7 - 9.8 9.3 9.9 - 9.5 9.8 9.6 ALT 31* 16 15 - 83* 26 25 - 22 16 22 ALKPHOS 101 84 89 - 107 96 87 - 100 84 101 AST 24 19 16 - 81* 24 25 - 24 21 25 TBIL 0.4 0.4 0.3 - 0.6 0.6 0.6 - - - - TPROT 7.0 7.2 7.1 - 7.2 7.1 7.8 - - - - EGFR - - - - 83 81 80 - - - - EGFRAFR - - - - 96 94 93 - - - - ALBUMIN 4.1 4.2 4.3 - 4.5 4.3 4.7 - - - - - = values in this interval not displayed. (Subj) Patient remains on 50 mg Enbrel SQ/week, 15 mg MTX/week 1 mg FA/d, 1 g Nabuemtone bid+ othermeds. Bowel Obstruction surgery 05/23 and healing well. No new rashes, mucosal ulcers, or systemic complaints. Mild abdominal pain with activity. No new medical problems. Past/Social/Family History reviewed. (Obj) BP 118/78 Pulse 69 Temp 97.9 ??F (36.6 ??C) (Oral) Ht 1.727 m (5' 8 ) Wt 77.8 kg (171lb 9.6 oz) SpO2 98% (Skin) No rashes or eruptions (HEENT) No mucosal ulcers. Moist membranes. No cartilage tenderness (Neck/back) No adenopathy/thyromegaly/tenderness (General) Unremarkable (Extrem)HNs DIPswith T1/BNs 5th PIPs/LONGTERM prominence. 1-3 MCPs SfT0; 2-5th MTPs SfT0; No donta synovitis. MS= bilat (Assess) Polyarthritis in medical remission (Plan) Continue same meds with labs q 8 weeks an d now CXR and yearly TB/Hep screenings. Referral to [facility], Dr. Ervin. RTO in 6 months. Discussed with patient and her . Perez Cervantes MD, FACP, FAAP, MACR Central Supply Technician Supervisor and Pediatric Rheumatology Professor of Internal Medicine,Pediatrics, and Molecular Immunology [facility] CMA documented in this encounter Plan of Treatment Upcoming Encounters Date Type Department Care Team (Late st Contact Info) Description 03/27/2025 1:00 PM CDT Office Visit [facility] - Rheumatology [address] [place] [address], [place] [address] Perez Cervantes MD [address] [place] [address] [address] [place] [address] Scheduled Orders Name Type Priority Associated Diagnoses Orde r Schedule CBC WITH DIFFERENTIAL Lab Routine Polyarthritis Encounter for therapeutic drug monitoring E-8Weeks for 12 Occurrences starting 09/25/2024 until 10/25/2025, 1 completed COMPREHENSIVE METABOLIC PANEL Lab Routine Polyarthritis Encounter for therapeutic drug monitoring E-8Weeks for 12 Occurrences starting 09/25/2024 until 10/25/2025, 1 completed C-REACTIVE PROTEIN Lab Routine Polyarthritis Encounter for therapeutic drug monitoring E-8Weeks for 12 Occurrences starting 09/25/2024 until 10/25/2025, 1 completed ERYTHROCYTE SEDIMENTATION RATE Lab Routine Polyarthritis Encounter for therapeutic drug monitoring E-8Weeks for 12 Occurrences starting 09/25/2024 until 10/25/2025, 1 completed URINALYSIS W/MICROSCOPIC REFLEX TO CULTURE Lab Routine Polyarthritis Encounter for therapeutic drug monitoring E-8Weeks for 12 Occurrences starting 09/25/2024 until 10/25/2025, 1 completed QUANTIFERON TB-GOLD Lab Routine Encounter for therapeutic drug monitoring Ordered: 09/25/2024 Scheduled Referrals Name Type Priority Associated Diagnoses Order Schedule Ref to Orthopedics - [facility] Outpatient Referral Routine Polyarthritis 1 Occurrences starting 09/25/2024 until 09/25/2025 documented as of this encounter Procedures Procedure Name Priority Date/Time Associated Diagnosis Comments HEPATITIS C AB W/RFLX TO HCV RNA QN PCR Routine 10/25/2024 7:42 AM LPN CMA Encounter for therapeutic drug monitoring HEPATITIS B SURFACE ANTIBODY Routine 10/25/2024 7:42 AM LPN CMA Encounter for therapeutic drug monitoring HEPATITIS B CORE ANTIBODY TOTAL Routine 10/25/2024 7:42 AM LPN CMA Encounter for therapeutic drug monitoring HEPATITIS B SURFACE ANTIGEN W RFLX CONFIRMATION Routine 10/25/2024 7:42 AM LPN CMA Encounter for therapeutic drug monitoring URINALYSIS W/MICROSCOPIC REFLEX TO CULTURE Routine 10/25/2024 7:39 AM LPN CMA Polyarthritis Encounter for therapeutic drug monitoring C-REACTIVE PROTEIN Routine 10/25/2024 7: 39 AM LPN CMA Polyarthritis Encounter for therapeutic drug monitoring ERYTHROCYTE SEDIMENTATION RATE Routine 10/25/2024 7:39 AM LPN CMA Polyarthritis Encounter for therapeutic drug monitoring CBC W AUTO DIFFERENTIAL Routine 10/25/2024 7:39 AM LPN CMA Polyarthritis Encounter for therapeutic drug monitoring COMPREHENSIVE METABOLIC PANEL Routine 10/25/2024 7:39 AM LPN CMA Polyarthritis Encounter for therapeutic drug monitoring documented in this encounter Results * HEPATITIS C AB W/RFLX TO HCV RNA QN PCR (10/25/2024 7:42 AM LPN CMA) Hepatitis C Antibody NON-REACTI VE NON-REACT [facility] Comment: HCV antibody was non-reactive. There is no laboratory evidence of HCV infection. In most cases, no further action is required. However, if recent HCV exposure is suspected, a test for HCV RNA (test code 88205) is suggested. For additional information please refer to http://Bosideng.DemandPoint/faq/WBE44g6 (This link is being provided for informational/ educational purposes only.) Test Performed at: [facility] [address] [place], [place] ??[phone] NAVID SCOTT MD Blood BLOOD SPECIMEN / Unknown 10/25/2024 7:42 AM LPN CMA 10/25/2024 7:42 AM LPN CMA Perez Cervantes MD LAB - CHEMISTRY GERA DAVID [facility] Organization Address City/State/[facility] Co de Phone Number [facility] [address] [place] [address] * HEPATITIS B SURFACE ANTIGEN W RFLX CONFIRMATION (10/25/2024 7:42 AM LPN CMA) Hepatitis B Virus Surface Antigen NON-REACTI VE NON-REACT [facility] Comment: For additional information, please refer to http://Bosideng.DemandPoint/faq/LOV099 (This link is being provided for informational/ educational purposes only.) Test Performed at: [facility] [address] [place] ??[phone] NAVID SCOTT MD Blood BLOOD SPECIMEN / Unknown 10/25/2024 7:42 AM LPN CMA 10/25/2024 7:42 AM LPN CMA Perez Cervantes MD LAB - CHEMISTRY GERA DAVID Performing Organization Address [facility]/[place] de Phone Number [employer] [address] [place] [address] * (ABNORMAL) HEPATITIS B SURFACE ANTIBODY (10/25/2024 7:42 AM LPN CMA) Hepatitis B Virus Surface Antibody REACTIVE(A ) NON-REACT [facility] Comment: Test Performed at: [facility] [address] [place], [place] ??[phone] NAVID SCOTT MD Blood BLOOD SPECIMEN / Unknown 10/25/2024 7:42 AM LPN CMA 10/25/2024 7:42 AM LPN CMA Perez Cervantes MD LAB - CHEMISTRY GERA DAVID Performing Organization Address [facility] de Phone Number [employer] [address] [place] [address] * HEPATITIS B CORE ANTIBODY TOTAL (10/25/2024 7:42 AM LPN CMA) Hepatitis B Core Virus Antibody Total NON-REACTI VE NON-REACT [facility] Comment: For additional information, please refer to http://education.DemandPoint/faq/DFC543 (This link is being provided for informational/ educational purposes only.) Test Performed at: [employer] [place], [place] ??[phone] NAVID SCOTT MD Blood BLOOD SPECIMEN / Unknown 10/25/2024 7:42 AM LPN CMA 10/25/2024 7:42 AM LPN CMA Perez Cervantes MD LAB - CHEMISTRY GERA DAVID Performing Organization Address [facility]/[place] de Phone Number [employer] [address] [place] [address] * (ABNORMAL) URINALYSIS W/MICROSCOPIC REFLEX TO CULTURE (10/25/2024 7:39 AM LPN CMA) Color UA YELLOW YELLOW [facility] Appearance CLOUDY(A) CLEAR [facility] Specific Weikert UA 1.023 1.001 - 1.035 [facility] pH [...] elements seen were reported. Test Performed at: [facility] ??[phone] NAVID SCOTT MD Urine URINE SPECIMEN OBTAINED BY CLEAN CATCH PROCEDURE / Unknown 10/25/2024 7:39 AM LPN CMA 10/25/2024 7:40 AM LPN CMA Perez Cervantes MD LAB - URINALYSIS ORD ERABLES Performing Organization Address [facility] Co de Phone Number [address] [address] * ERYTHROCYTE SEDIMENTATION RATE (10/25/2024 7:39 AM LPN CMA) Pathologist [facility] Erythrocyte Sedimentation Rate Westergren 6 < OR = 30 mm/h [facility] Comment: Test Performed at: [facility] [address] ??[phone] NAVID SCOTT MD Blood BLOOD SPECIMEN / Unknown 10/25/2024 7:39 AM LPN CMA 10/25/2024 7:40 AM LPN CMA Perez Cervantes MD LAB - HEMATOLOGY ORD ERABLES Performing Organization Address [facility]/ZIP Co de Phone Number [address] [address] * C-REACTIVE PROTEIN (10/25/2024 7:39 AM LPN CMA) Pathologist [facility] C-Reactive Protein <3.0 <8.0 mg/L [facility] Comment: Test Performed at: [facility] [address] [place], [place] ??[phone] NAVID SCOTT MD Blood BLOOD SPECIMEN / Unknown 10/25/2024 7:39 AM LPN CMA 10/25/2024 7:40 AM LPN CMA Perez Cervantes MD LAB - CHEMISTRY GERA DAVID [facility] Organization Address City/State/ZIP Co de Phone Number [facility] [address] [place] [address] * COMPREHENSIVE METABOLIC PANEL (10/25/2024 7:39 AM LPN CMA) Glucose 83 65 - 99 mg/dL [facility] Comment: ? Fasting reference interval BUN 18 7 - 25 mg/dL [facility] Creatinine 0.79 0.50 - 1.05 mg/dL [facility] eGFR by Cystatin C 85 > OR = 60 mL/min/1. 73m2 [facility] BUN/Creatinine Ratio SEE NOTE: (calc) [facility] Comment: ?? Not Reported: BUN [...] 29 U/L [facility] Comment: Test Performed at: [facility] [address] [place], [place] ??[phone] NAVID SCOTT MD Blood BLOOD SPECIMEN / Unknown 10/25/2024 7:39 AM LPN CMA 10/25/2024 7:40 AM LPN CMA Perez Cervantes MD LAB - CHEMISTRY GERA DAVID [facility] Organization Address City/State/ZIP Co de Phone Number [facility] [address] [place] [address] * (ABNORMAL) CBC WITH DIFFERENTIAL (10/25/2024 7:39 AM LPN CMA) White Blood Cell Count 4.5 3.8 - [...] 0.4 % [facility] Comment: Test Performed at: [employer] [place], [place] ??[phone] NAVID SCOTT MD Blasts [facility] nRBC [facility] Comments [facility] Comment: Test Performed at: [facility] [address] [place], [place] ??[phone] NAVID SCOTT MD Blood BLOOD SPECIMEN / Unknown 10/25/2024 7:39 AM LPN CMA 10/25/2024 7:40 AM LPN CMA Perez Cervantes MD LAB - HEMATOLOGY ORD ERABLES [facility] [address] [place] [address] * XR Chest 2Vw (09/25/2024 2:53 PM LPN CMA) Anatomical Region Laterality Modality Chest Digital Radiogra phy 09/25/2024 8:41 PM LPN CMA Impressions 09/25/2024 8:41 PM LPN CMA IMPRESSION: No acute cardiopulmonary abnormalities. > Interpreting Provider: Cheryl Cespedes MD on 09/25/2024 8:41 PM Narrative 09/25/2024 8:41 PM LPN CMA PROCEDURE: ??XR CHEST 2VW DATE/TIME OF EXAM: [...] documented in this encounter Visit Diagnoses Diagnosis Polyarthritis- Primary Unspecified polyarthropathy or polyarthritis, site unspecified Encounter for therapeutic drug monitoring Encounter for therapeutic drug monitoring documented in this encounter Care Teams Supervisor Buffing And Pasting Relationship Specialty [place] [address] [address] [address] PCP - General Family Medicine 03/27/24 documented as of this encounter
--- OUTSIDE RECORDS SUMMARY | 2024-11-13 17:06 | XMS_ITS | Encounter Summary ---
Author Organization [facility] Address [address] [place] [address] Care Team Providers Care Professor Of Physics Name Role Phone Jaspreet Pearl MD Primary Care Provider + Encounter Details Date Type Department Care Team (Latest Contact Info) Description 08/31/2023 2:55 PM CDT - 08/31/2023 11:59 PM CDT Hospital Encounter [facility] OP DRAW [facility] [address] [place] [address] Perez Cervantes MD [address] [place] [address] Discharge Disposition: Home or Self [...] End Date Azelastine HCl 137 MCG/SPRAY SOLN Colome 2 sprays into the nose 2 times [...] (one) capsule by mouth once daily 03/27/2024 Yale-3 Fatty Acids (Fish Oil) 1200 MG 1 cap 4 documented as of this encounter Plan of Treatment Upcoming Encounters Date Type Department Care Team (Late st Contact Info) Description 03/27/2025 1:00 PM CDT Office Visit [facility] - Rheumatology [address] [place] [address], [facility] [place] [phone] Perez Cervantes MD [address] [place] [address] [place] [id number] documented as of this encounter Visit Diagnoses Not on filedocumented in this encounter Care Teams Professor Of Physics Relationship Specialty Start Date End Date Jaspreet Pearl MD PCP - General 08/08/18 03/26/24 documented as of this encounter
--- OUTSIDE RECORDS SUMMARY | 2024-11-13 17:06 | XMS_ITS | Encounter Summary ---
Author Organization [facility] Health Address [address] [place] [address] Care Team Providers Care Senior Electrical Controls Engineer Name Role Phone Jaspreet Pearl MD Primary Care Provider + Reason for Visit * Reason Onset Date Comments Follow-up Imm Inj 08/31/2023 Encounter Details Date Type Department Care Team (Late st Contact Info) Description 08/31/2023 2:00 PM CDT Office Visit [facility] - Rheumatology [address] [place] [address], [place] [address] Perez Cervantes MD [address] [place] [address] [place] [address] Encounter for long-term (current) use of medications (Primary Dx); Need for prophylactic vaccination and inoculation against influenza; Pyuria Social History Tobacco Use Types Packs/Day Years [...] Sign Reading Time Taken Comments Blood Pressure 90/58 08/31/2023 2:04 PM CDT Pulse 75 08/31/2023 2:04 PM CDT Temperature 36.9 ??C (98.5 ??F) 08/31/2023 2:04 PM CD T Respiratory Rate - - Oxygen Saturation - - Inhaled Oxygen Concentration - - Weight 74.6 kg (164 lb 6.4 oz) 08/31/2023 2:04 P M CDT Height 172.7 cm (5' 8 ) 08/31/2023 2:04 PM CDT Body Mass Index 25 08/31/2023 2:04 PM CDT documented in this encounter Progress Notes * Perez Cervantes MD - 08/31/2023 2:25 PM CDT (Prob #1) Polyarthritis (Abs Negative) (Prob #2) OA hands (Labs) Recent Labs Component Name 08/02/23 0706/07/23 0801 04/15/23 0737 03/18/18 0735 01/07/18 0744 10/22/17 0734 08/13/17 0734 WBC 5.8 4.3 4.4 - 4.4 4.3 3.7* RBC 4.18 4.01 4.04 - 4.14 4.33 4.31 HGB 12.7 12.3 12.4 - 12.5 13.1 13.0 HCT 38.9 37.5 38.2 - 37.8 40.0 39.4 MCV 93.1 93.5 94.6 - 91.3 92.4 91.4 MCHC 32.6 32.8 32.5 - 33.1 32.8 33.1 PLTCOUNT 225 206 193 - - - - NEUTPCT - - - - 55.7 60.3 65.4 LYMPHPCT 35.7 42.7 29.2 - - - - EOSINPCT 1.0 2.3 2.5 - - - - BASOPHILPCT 0.3 0.2 0.2 - - - - NEUTABS - - - - 2,451 2,593 2,420 - = values in this interval not displayed. ESR 11; CRP 0.24 UA WNL; Recent Labs Component Name 08/02/23 0723 06/07/23 0801 04/15/23 0737 05/28/22 0817 05/15/22 1029 03/20/22 0720 01/22/22 0746 SODIUM 139 138 140 - 140 140 139 POTASSIUM 4.4 4.6 4.7 - 4.4 4.1 4.1 CHLORIDE 103 104 105 - 105 104 102 CO2 28 27 27 - 27 29 28 BUN 13 16 16 - 17 23 19 CREATININE 0.75 0.82 0.77 - 0.78 0.80 0.81 GLUCOSE 83 85 85 - 86 81 86 CALCIUM 9.5 9.4 9.6 - 9.8 9.3 9.9 ALT 19 28 50* - 83* 26 25 ALKPHOS 101 95 89 - 107 96 87 AST 19 22 34 - 81* 24 25 TBIL 0.4 0.4 0.4 - 0.6 0.6 0.6 TPROT 7.1 6.8 6.9 - 7.2 7.1 7.8 EGFR - - - - 83 81 80 EGFRAFR - - - - 96 94 93 ALBUMIN 4.2 4.1 4.2 - 4.5 4.3 4.7 - = values in this interval not displayed. (Subj) Patient remains on 50 mg Enbrel SQ/week, 15 mg MTX/week, 1 mg FA/d, 1 g Nabumetone bid+ other meds. No AM stiffness.Abdominal complaints and low back pain with some DGD. UA showed trace Diarrhea which has resolved.. Rest of ROS negative. Past/Social/Family History reviewed. (Obj) BP 90/58 Pulse 75 Temp 98.5 ??F (36.9 ??C) Ht 1.727 m (5' 8 ) Wt 74.6 kg (164 lb 6.4 oz) (Skin) No rashes or eruptions (HEENT) No mucosal ulcers. Moist membranes (Neck/Back) No adenopathy/thyromegaly; mild LS tenderness (General) Unremarkable (Extrem) HNs DIPs/BNs PIPs/INTERMEDIATE prominence; 1-3rd MCPs SfT0; 2-5th MTPs Sft); No donta synovitis/enthesitis. MS= bilat (Assess) In medical remission; Monitor for UTI (Plan) Continue same meds with labs q 8 weeks and yearly TB/Hep screening with CXR now. Urine culture today and advise. RTO in 6 months. Discussed with patient. Perez Cervantes MD, FACP, FAAP, MACR Building Supplies Salesperson Retail and Pediatric Rheumatology Professor of Internal Medicine,Pediatrics, and Molecular Immunology [facility] documented in this encounter Plan of Treatment Upcoming Encounters Date Type Department Care Team (Late st Contact Info) Description 03/27/2025 1:00 PM CDT Office Visit [facility] - Rheumatology [address] [place] [address], [place] [phone] Perez Cervantes MD [facility] [address]L [place] [address] Scheduled Orders Name Type Priority Associated Diagnoses Orde r Schedule [facility]ER[facility] TB-GOLD Lab Routine Encounter for long-term (current) use of medications Ordered: 08/31/2023 documented as of this encounter Procedures Procedure Name Priority Date/Time Associated Diagnosis Comments HEPATITIS C AB W/RFLX TO HCV RNA QN PCR Routine 09/30/2023 7:32 AM HEALTH INFORMATION TECH Encounter for long-term (current) use of medications HEPATITIS B SURFACE ANTIBODY Routine 09/30/2023 7:32 AM HEALTH INFORMATION TECH Encounter for long-term (current) use of medications HEPATITIS B CORE ANTIBODY TOTAL Routine 09/30/2023 7:32 AM HEALTH INFORMATION TECH Encounter for long-term (current) use of medications HEPATITIS B SURFACE ANTIGEN W RFLX CONFIRMATION Routine 09/30/2023 7:32 AM HEALTH INFORMATION TECH Encounter for long-term (current) use of medications CULTURE URINE Routine 08/31/2023 3:14 PM CDT Pyuria documented in this encounter Results * HEPATITIS C AB W/RFLX TO HCV RNA QN PCR (09/30/2023 7:32 AM HEALTH INFORMATION TECH) Hepatitis C Antibody NON-REACTI VE NON-REACT ROMANA [facility] Comment: HCV antibody was non-reactive. There is no laboratory evidence of HCV infection. In most cases, no further action is required. However, if recent HCV exposure is suspected, a test for HCV RNA (test code 84891) is suggested. For additional information please refer to http://CSMG.[employer]/faq/QJD23d9 (This link is being provided for informational/ educational purposes only.) Test Performed at: [facility] [place] [facility] [place] ??[phone] NAVID SCOTT MD Blood BLOOD SPECIMEN / Unknown 09/30/2023 7:32 AM HEALTH INFORMATION TECH 09/30/2023 7:36 AM HEALTH INFORMATION TECH Perez Cervantes MD LAB - CHEMISTRY GERA DAVID Performing Organization Address [facility] de Phone Number [address] [address] * HEPATITIS B SURFACE ANTIGEN W RFLX CONFIRMATION (09/30/2023 7:32 AM HEALTH INFORMATION TECH) Hepatitis B Virus Surface Antigen NON-REACT ROMANA NON-REACT ROMANA [facility] Comment: For additional information, please refer to http://CSMG.[employer]/faq/KGI255 (This link is being provided for informational/ educational purposes only.) Test Performed at: [employer] [facility] [address] [facility] [place] [place] ??[phone] NAVID SCOTT MD Confirmation [facility] Comment: Test Performed at: [employer] [place] [place], [place] ??[phone] NAVID SCOTT MD Blood BLOOD SPECIMEN / Unknown 09/30/2023 7:32 AM HEALTH INFORMATION TECH 09/30/2023 7:36 AM HEALTH INFORMATION TECH Perez Cervantes MD LAB - CHEMISTRY GERA DAVID Performing Organization Address [facility] Co de Phone Number [address] [address] * (ABNORMAL) HEPATITIS B SURFACE ANTIBODY (09/30/2023 7:32 AM HEALTH INFORMATION TECH) Hepatitis B Virus Surface Antibody REACTIVE(A ) NON-REACT ROMANA [facility] Comment: Test Performed at: [employer] [address] [place], [place] ??[phone] NAVID SCOTT MD Blood BLOOD SPECIMEN / Unknown 09/30/2023 7:32 AM HEALTH INFORMATION TECH 09/30/2023 7:36 AM HEALTH INFORMATION TECH Perez Cervantes MD LAB - CHEMISTRY GERA DAVID Performing Organization Address [facility] Co de Phone Number [facility] [phone] [place] [phone] * HEPATITIS B CORE ANTIBODY TOTAL (09/30/2023 7:32 AM HEALTH INFORMATION TECH) Pathologist [facility] Hepatitis B Core Virus Antibody Total NON-REACTI VE NON-REACT ROMANA [facility] Comment: For additional information, please refer to http://education.[employer]/faq/DMV762 (This link is being provided for informational/ educational purposes only.) Test Performed at: [employer] [facility] [address] [place], [place] ??[phone] NAVID SCOTT MD Blood BLOOD SPECIMEN / Unknown 09/30/2023 7:32 AM HEALTH INFORMATION TECH 09/30/2023 7:36 AM HEALTH INFORMATION TECH Perez Cervantes MD LAB - CHEMISTRY GERA DAVID Performing Organization Address [facility] Co de Phone Number [facility] [phone] [place] [phone] * CULTURE URINE (08/31/2023 3:14 PM CDT) [facility] Culture Urine No growth (<100 CFU/mL) MELINDA 09/01/2023 10:44 AM CDT [facility] MICROBIOLOGY Urine URINE SPECIMEN OBTAINED BY CLEAN CATCH PROCEDURE / Unknown Collection / Unknown 08/31/2023 3:14 PM CDT 08/31/2023 4:15 PM CDT Perez Cervantes MD LAB - MICROBIOLOGY O RDERABLES Performing Organization Address [facility] Co de Phone Number [facility] MICROBIOLOGY [address] [place] [address], [facility] [phone] * XR CHEST 2VW (08/31/2023 3:04 PM CDT) Anatomical Region Laterality Modality Chest Radiographic Corin ging 08/31/2023 3:08 PM CDT Narrative 09/01/2023 1:34 AM CDT PROCEDURE: ??XR CHEST 2VW, DATE/TIME OF EXAM: ??08/31/2023 3:04 PM, LOCATION [facility] INDICATION: Z79.899: Encounter for long-term (current) use of medications ADDITIONAL CLINICAL INFORMATION: Ordering Provider Reason For Exam: ??Monitoring Medication COMPARISON: Chest radiograph dated 09/01/2022 FINDINGS/IMPRESSION: There is no focal consolidation, pleural effusion, or pneumothorax. The cardiomediastinal silhouette is normal. The visible bony thorax is intact. > Dictated by Hemanth Vazquez MD (radiology supervisor). Dann Osorio MD have personally reviewed and interpreted this examination/study. > Interpreting Provider: Dann Mccoy MD on 09/01/2023 1:34 AM Procedure Note Dann Mccoy MD - 09/01/2023 PROCEDURE: XR CHEST 2VW, DATE/TIME OF EXAM: 08/31/2023 3:04 PM, LOCATION [facility] INDICATION: Z79.899: Encounter for long-term (current) use of medications ADDITIONAL CLINICAL INFORMATION: Ordering Provider Reason For Exam: Monitoring Medication COMPARISON: Chest radiograph dated 09/01/2022 FINDINGS/IMPRESSION: There is no focal consolidation, pleural effusion, or pneumothorax. The cardiomediastinal silhouette is normal. The visible bony thorax isintact. > Dictated by Hemanth Vazquez MD (radiology supervisor). Dann Osorio MD have personally reviewed and interpreted this examination/study. > Interpreting Provider: Dann Mccoy MD on 09/01/2023 1:34 AM Perez Cervantes MD DIAGNOSTIC IMAGING O RDERABLES documented in this encounter Visit Diagnoses Diagnosis Encounter for long-term (current) use of medications- Primary Encounter for long-term (current) use of other medications Need for prophylactic vaccination and inoculation against influenza Pyuria Other nonspecific finding on examination of urine Encounter for long-term (current) use of medications Encounter for long-term (current) use of other medications documented in this encounter Care Teams Senior Electrical Controls Engineer Relationship Specialty Start Date End Date Jaspreet Pearl MD PCP - General 08/08/18 03/26/24 documented as of this encounter
--- OUTSIDE RECORDS SUMMARY | 2024-11-13 17:06 | XMS_ITS | Encounter Summary ---
Author Organization [facility] Address [address] [facility] [place] [address] Care Team Providers Care Order Packer Or Packager Name Role Phone Jaspreet Pearl MD Primary Care Provider + Encounter Details Date Type Department Care Team (Late Contact Info) Description 10/01/2023 Orders Only [facility] - Rheumatology [address] [place] [phone] Perez Cervantes MD [address] [place] [address] [address] [place] [address] Encounter for therapeutic drug monitoring Social History [...] Office Visit [facility] - Rheumatology [address] [place] [phone] Perez Cervantes MD [address] [place] [address] [address] [place] [address] documented as of this encounter Procedures Procedure Name Priority Date/Time Associated Diagnosis Comments COMPREHENSIVE METABOLIC PANEL Routine 10/11/2023 7:39 AM CAR CLERK PULLMAN Encounter for therapeutic drug monitoring documented in this encounter Results * (ABNORMAL) COMPREHENSIVE METABOLIC PANEL (10/11/2023 7:39 AM CAR CLERK PULLMAN) Glucose 83 65 - 99 mg/dL [facility] Comment: ? Fasting reference interval BUN 15 7 - 25 mg/dL [facility] Creatinine 0.74 0.50 - 1.05 mg/dL [facility] eGFR by Cystatin C 93 > OR = 60 mL/min/1. 73m2 [facility] BUN/Creatinine Ratio SEE NOTE: (calc) [facility] Comment: ?? Not Reported: BUN and Creatinine are within ?? reference range. ? Sodium 140 135 - 146 mmol/L [facility] Potassium 4.6 3.5 - 5.3 mmol/L [facility] Chloride 104 98 - 110 mmol/L [facility] CO2 29 20 - 32 mmol/L [facility] Calcium 9.2 8.6 - 10.4 mg/dL [facility] Protein Total 6.7 6.1 - 8.1 g/dL [facility] Albumin 3.9 3.6 - 5.1 g/dL [facility] Globulin Total 2.8 1.9 - 3.7 g/dL (calc) [facility] Albumin/Globulin Ratio 1.4 1.0 - 2.5 (calc) [facility] Bilirubin Total 0.3 0.2 - 1.2 mg/dL [facility] Alkaline Phosphatase 121 37 - 153 U/L [facility] AST 21 10 - 35 U/L [facility] ALT 30(H) 6 - 29 U/L [facility] Comment: Test Performed at: [facility] [address] [place] [address] ??[phone] NAVID SCOTT MD Blood BLOOD SPECIMEN / Unknown 10/11/2023 7:39 AM CAR CLERK PULLMAN 10/11/2023 7:39 AM CAR CLERK PULLMAN Perez Cervantes MD LAB - CHEMISTRY GERA DAVID [facility] [id number] [place] [address] documented in this encounter Visit Diagnoses Diagnosis Encounter for therapeutic drug monitoring- Primary documented in this encounter Care Teams Order Packer Or Packager Relationship Specialty Start Date End Date Jaspreet Pearl MD PCP - General 08/08/18 03/26/24 documented as of this encounter
--- OUTSIDE RECORDS SUMMARY | 2024-11-13 17:06 | XMS_ITS | Encounter Summary ---
Author Organization [facility] Address [address] [facility] [place] [address] Care Team Providers Care Consumer Insights Intern Name Role Phone Jaspreet Pearl MD Primary Care Provider + Encounter Details Date Type Department Care Team (Late Contact Info) Description 09/24/2023 Orders Only [facility] [address] [place] [phone] Perez Cervantes MD [address] [place] [address] [address] [address] Encounter for therapeutic drug monitoring; Polyarthritis Social History Tobacco Use Types Packs/Day Years [...] Office Visit [facility] - Rheumatology [address] [place] [phone] Perez Cervantes MD [address] [place] [address] [address] [place] [phone] documented as of this encounter Procedures Procedure Name Priority Date/Time Associated Diagnosis Comments C-REACTIVE PROTEIN Routine 09/30/2023 7: 32 AM ROOM WORKER Encounter for therapeutic drug monitoring Polyarthritis ERYTHROCYTE SEDIMENTATION RATE Routine 09/30/2023 7:32 AM ROOM WORKER Encounter for therapeutic drug monitoring Polyarthritis CBC W AUTO DIFFERENTIAL Routine 09/30/2023 7:32 AM ROOM WORKER Encounter for therapeutic drug monitoring Polyarthritis COMPREHENSIVE METABOLIC PANEL Routine 09/30/2023 7:32 AM ROOM WORKER Encounter for therapeutic drug monitoring Polyarthritis documented in this encounter Results * ERYTHROCYTE SEDIMENTATION RATE (09/30/2023 7:32 AM ROOM WORKER) Erythrocyte Sedimentation Rate Westergren 25 < OR = 30 mm/h [facility] Comment: Test Performed at: [facility] [address] [place], [place] ??[phone] NAVID SCOTT MD Blood BLOOD SPECIMEN / Unknown 09/30/2023 7:32 AM ROOM WORKER 09/30/2023 7:36 AM ROOM WORKER Perez Cervantes MD LAB - HEMATOLOGY ORD DANITA Performing Organization Address [facility] Co md Phone Number [facility] [address] [place] [address] * C-REACTIVE PROTEIN (09/30/2023 7:32 AM ROOM WORKER) C-Reactive Protein 3.6 <8.0 mg/L [facility] Comment: Test Performed at: [facility] [address] [facility] [place] ??[phone] NAVID SCOTT MD Blood BLOOD SPECIMEN / Unknown 09/30/2023 7:32 AM ROOM WORKER 09/30/2023 7:36 AM ROOM WORKER Perez Cervantes MD LAB - CHEMISTRY GERA DAVID [facility] [address] [place] [address] * (ABNORMAL) COMPREHENSIVE METABOLIC PANEL (09/30/2023 7:32 AM ROOM WORKER) [facility] Glucose 72 65 - 99 mg/dL [facility] Comment: ? Fasting reference interval BUN 17 7 - 25 mg/dL [facility] Creatinine 0.79 0.50 - 1.05 mg/dL [facility] eGFR by Cystatin C 86 > OR = 60 mL/min/1. 73m2 [facility] BUN/Creatinine Ratio SEE NOTE: (calc) [facility] Comment: ?? Not Reported: BUN and Creatinine are within ?? reference range. ? Sodium 139 135 - 146 mmol/L [facility] Potassium 4.2 3.5 - 5.3 mmol/L [facility] Chloride 103 98 - 110 mmol/L [facility] CO2 30 20 - 32 mmol/L [facility] Calcium 9.5 8.6 - 10.4 mg/dL [facility] Protein Total 7.1 6.1 - 8.1 g/dL [facility] Albumin 4.3 3.6 - 5.1 g/dL [facility] Globulin Total 2.8 1.9 - 3.7 g/dL (calc) [facility] Albumin/Globulin Ratio 1.5 1.0 - 2.5 (calc) [facility] Bilirubin Total 0.5 0.2 - 1.2 mg/dL [facility] Alkaline Phosphatase 139 37 - 153 U/L [facility] AST 57(H) 10 - 35 U/L [facility] ALT 90(H) 6 - 29 U/L [facility] Comment: Test Performed at: [facility] [address] ??[phone] NAVID SCOTT MD Blood BLOOD SPECIMEN / Unknown 09/30/2023 7:32 AM ROOM WORKER 09/30/2023 7:36 AM ROOM WORKER Perez Cervantes MD LAB - CHEMISTRY GERA DAVID Performing Organization Address City/[facility]/ZIP Co de Phone Number [facility] [address] [place] [address] * CBC WITH DIFFERENTIAL (09/30/2023 7:32 AM ROOM WORKER) [facility] White Blood Cell Count 5.6 3.8 - 10.8 Thousand/u L [facility] RBC 4.20 3.80 - 5.10 Million/uL [facility] Hemoglobin 12.6 11.7 - 15.5 g/dL [facility] Hematocrit 38.8 35.0 - 45.0 % [facility] MCV 92.4 80.0 - 100.0 fL [facility] MCH 30.0 27.0 - 33.0 pg [facility] MCHC 32.5 32.0 - 36.0 g/dL [facility] RDW 14.5 11.0 - 15.0 % [facility] Platelet Count 236 140 - 400 Thousand/u L [facility] MPV 10.4 7.5 - 12.5 fL [facility] Neutrophil Absolute 2733 1500 - 7800 cells/uL [facility] Absolute Bands [facility] Metamyelocytes Absolute [facility] Myelocytes Absolute [facility] Absolute Prolymphocytes [facility] Lymphocytes Absolute 2145 850 - 3900 cells/uL [facility] Absolute Monocytes 582 200 - 950 cells/uL [facility] Eosinophils Absolute 118 15 - 500 cells/uL [facility] Basophils Absolute 22 0 - 200 cells/uL [facility] Absolute Blasts [facility] nRBC Absolute [facility] Granulocytes % 48.8 % [facility] Band Neutrophil [facility] Metamyelocytes [facility] Myelocytes [facility] Promyelocytes [facility] Lymphocytes % 38.3 % [facility] Lymphocyte Reactive [facility] Monocytes % 10.4 % [facility] Eosinophils % 2.1 % [facility] Basophils % 0.4 % [facility] Comment: Test Performed at: [facility] [address] [place], [place] ??[phone] NAVID SCOTT MD Blasts [facility] nRBC [facility] Comments [facility] Comment: Test Performed at: [facility] [address] [place], [place] ??[phone] NAVID SCOTT MD Blood BLOOD SPECIMEN / Unknown 09/30/2023 7:32 AM ROOM WORKER 09/30/2023 7:36 AM ROOM WORKER Perez Cervantes MD LAB - HEMATOLOGY ORD ERABLES [facility] [address] [place] [address] documented in this encounter Visit Diagnoses Diagnosis Encounter for therapeutic drug monitoring Polyarthritis Unspecified polyarthropathy or polyarthritis, site unspecified documented in this encounter Care Teams Consumer Insights Intern Relationship Specialty Start Date End Date Jaspreet Pearl MD PCP - General 08/08/18 03/26/24 documented as of this encounter
--- OUTSIDE RECORDS SUMMARY | 2024-11-13 17:06 | XMS_ITS | Encounter Summary ---
Author Organization [facility] Address [address] [facility] [place] [address] Care Team Providers Care Phone Technician Name Role Phone Jaspreet Pearl MD Primary Care Provider + Encounter Details Date Type Department Care Team (Late Contact Info) Description 12/18/2022 Orders Only [facility] [address] [place] [phone] Perez Cervantes MD [address] [place] [address] [address] [address] Encounter for therapeutic drug monitoring; [...] Office Visit [facility] - Rhe[facility]ology [address] [place] [phone] Perez Cervantes MD [address] [place] [address] [address] [place] [address] documented as of this encounter Visit Diagnoses Diagnosis Encounter for therapeutic drug monitoring Polyarthritis Unspecified polyarthropathy or polyarthritis, site unspecified documented in this encounter Care Teams Phone Technician Relationship Specialty Start Date End Date Jaspreet Pearl MD PCP - General 08/08/18 03/26/24 documented as of this encounter
--- OUTSIDE RECORDS SUMMARY | 2024-11-13 17:06 | XMS_ITS | Encounter Summary ---
Author Organization [facility] Address [address] [facility] [place] [address] Care Team Providers Care Pediatric Social Worker Name Role Phone Jaspreet Pearl MD Primary Care Provider + Reason for Visit * Reason Comments Refill Request Encounter Details Date Type Department Care Team (Late st Contact Info) Description 04/01/2023 Refill [facility] Rheumatology [address] [place] [address], [place] [address] Preez Cervantes MD [address] [place] [address] [place] [address] Refill Request Social History Tobacco Use Types Packs/Day Years [...] on file documented as of this encounter Miscellaneous Notes * Telephone Encounter - Jaelyn Dewitt - 04/02/2023 9:23 AM CDT Refill Request Hans Pascual NICK: 03/02/2023 NOV scheduled: 08/31/2023 LRF: 03/30/2023 Qty Disp: 30 # of refills:11 Allergies: Allergies Allergen Reactions ??? Levaquin [Levofloxacin] Nausea and/or Vomiting and Psychiatric hallucinations Pended Medication Order: Requested Prescriptions Pending Prescriptions Disp Refills ??? folic acid (Folvite) 1 MG tablet [Pharmacy Med Name: FOLIC ACID 1 MG TABLET] 30 tablet 11 Sig: TAKE 1 TABLET BY MOUTH DAILY documented in this encounter Plan of Treatment Upcoming Encounters Date Type Department Care Team (Late st Contact Info) Description 03/27/2025 1:00 PM CDT Office Visit [facility] - Rheumatology [address] [place] [address], [place] [phone] Perez Cervantes MD [address] [place] [address] [place] [phone] documented as of this encounter Visit Diagnoses Diagnosis Polyarthritis Unspecified polyarthropathy or polyarthritis, site unspecified documented in this encounter Care Teams Pediatric Social Worker Relationship Specialty Start Date End Date Jaspreet Pearl MD PCP - General 08/08/18 03/26/24 documented as of this encounter
--- OUTSIDE RECORDS SUMMARY | 2024-11-13 17:06 | XMS_ITS | Encounter Summary ---
Author Organization [facility] Address [address] [facility] [place] [address] Care Team Providers Care Sanitary Aide Name Role Phone Jaspreet Pearl MD Primary Care Provider + Encounter Details Date Type Department Care Team (Latest Contact Info) Description 09/01/2022 4:30 PM CDT - 09/01/2022 11:59 PM CDT Hospital Encounter [facility] DIAG[facility]STIC RAD OP [address] [place] [phone] Unknown, Provider Discharge Disposition: Home or Self Care Social [...] End Date Azelastine HCl 137 MCG/SPRAY SOLN [place] 2 sprays into the nose 2 times daily dicyclomine (BENTYL) 20 MG tablet Take 1 (one) tablet by mouth as needed Multiple Vitamin (MULTI VITAMIN PO) Take 1 tablet by mouth once daily polyethylene glycol 3350 (MIRALAX) 17 GM/SCOOP powder Take 17 (seventeen) g by mouth every 24 hours as needed ALPRAZolam (XANAX) 0.25 MG tablet Take 1 (one) tablet by mouth once daily as needed 01/26/2020 03/27/2024 busPIRone (BUSPAR) 15 MG tablet Take 1 (one) tablet by mouth 2 times daily 10/07/2020 03/27/2024 citalopram (CELEXA) 10 MG tablet Take 10 mg by mouth once daily 1 05/01/2019 08/31/2023 ENBREL 50 MG/ML prefilled syringe INJECT 50 MG (1 SYRINGE) UNDER THE SKIN ONCE WEEKLY 12 syringe 3 02/03/2019 07/11/2024 estradiol (VAGIFEM) 10 MCG vaginal tablet Insert 1 tablet into the vagina Two times a week 11/19/2021 08/31/2023 fexofenadine (PIYUSH ALLERGY) 180 MG tablet Take 180 mg by mouth once daily 08/31/2023 folic acid (FOLVITE) 1 MG tabletIndications:Po lyarthritis TAKE 1 TABLET BY MOUTH DAILY 30 tablet 11 03/30/2022 04/02/2023 methotrexate 2.5 MG tabletIndications:Po lyarthritis TAKE 8 TABLETS EVERY 7 DAYS Reasons: Polyarthritis 96 tablet 3 05/05/2021 01/04/2023 montelukast (Singulair) 10 MG tablet Take 1 (one) tablet by mouth once daily 05/27/2022 03/27/2024 montelukast (SINGULAIR) 10 MG tablet Take 10 mg by mouth at bedtime 08/31/2023 nabumetone (RELAFEN) 500 MG tablet Take 2 (two) tablets by mouth 2 times daily 180 tablet 3 11/24/2021 01/04/2023 omega 3 (FISH OIL) 1200 MG capsule Take 1 (one) capsule by mouth once daily 03/27/2024 triamcinolone acetonide (Kenalog) 0.1 % ointment 08/31/2022 08/31/2023 documented as of this encounter Plan of Treatment Upcoming Encounters Date Type Department Care Team (Late st Contact Info) Description 03/27/2025 1:00 PM CDT Office Visit [facility] - Rheumatology [address] [place] [address], [place] [address] Perez Cervantes MD [address] [place] [address] [place] [address] documented as of this encounter Procedures Procedure Name Priority Date/Time Associated Diagnosis Comments XR CHEST 2VW Routine 09/01/2022 4:36 PM CDT Encounter for therapeutic drug monitoring documented in this encounter Results * XR CHEST 2VW (09/01/2022 4:36 PM CDT) Anatomical Region Laterality Modality Chest Radiographic Corin ging 09/02/2022 7:40 AM CDT Narrative 09/02/2022 9:38 AM CDT PROCEDURE: ??XR CHEST 2VW, DATE/TIME OF EXAM: ??09/01/2022 4:36 PM, LOCATION [facility] INDICATION: Z51.81: Encounter for therapeutic drug monitoring COMPARISON: Chest x-ray 06/09/2021 FINDINGS/IMPRESSION: There is no focal consolidation, pleural effusion, or pneumothorax. The cardiomediastinal silhouette is normal. The visible bony thorax is intact. Report dictated by Wm Tran MD, MD (founder and president). Dameon Osorio have personally reviewed and interpreted this examination/study. > Interpreting Provider: Dameon Johnson on 09/02/2022 9:38 AM Procedure Note Dameon Johnson MD - 09/02/2022 PROCEDURE: XR CHEST 2VW, DATE/TIME OF EXAM: 09/01/2022 4:36 PM, LOCATION [facility] INDICATION: Z51.81: Encounter for therapeutic drug monitoring COMPARISON: Chest x-ray 06/09/2021 FINDINGS/IMPRESSION: There is no focal consolidation, pleural effusion, or pneumothorax. The cardiomediastinal silhouette is normal. The visible bony thorax isintact. Report dictated by Wm Tran MD, MD (founder and president). Dameon Osorio have personally reviewed and interpreted this examination/study. > Interpreting Provider: Dameon Johnson on 09/02/2022 9:38 AM Perez Cervantes MD DIAGNOSTIC IMAGING O RDERABLES documented in this encounter Visit Diagnoses Diagnosis Encounter for therapeutic drug monitoring documented in this encounter Care Teams Sanitary Aide Relationship Specialty Start Date End Date Jaspreet Pearl MD PCP - General 08/08/18 03/26/24 documented as of this encounter
--- OUTSIDE RECORDS SUMMARY | 2024-11-13 17:06 | XMS_ITS | Encounter Summary ---
Author Organization [facility] Address [address] [facility] [place] [address] Care Team Providers Care Gear Tooth Grinding Machine Operator Name Role Phone Dayanara Plaza MD Primary Care Provider [phone] Encounter Details Date Type Department Care Team (Latest Contact Info) Description 09/25/2024 Travel Social History Tobacco Use Types Packs/Day [...] Office Visit [facility] - Rheumatology [address] [place] [address], [place] [address] Perez Cervantes MD [address] [place] [address] [place] [address] documented as of this encounter Visit Diagnoses Not on filedocumented in this encounter Care Teams Gear Tooth Grinding Machine Operator Relationship Specialty [place] [id number] [phone] PCP - General Family Medicine 03/27/24 documented as of this encounter
--- OUTSIDE RECORDS SUMMARY | 2024-11-13 17:06 | XMS_ITS | Encounter Summary ---
Author Organization [facility] Address [address] [facility] [place] [address] Care Team Providers Care Crystal Slicer Name Role Phone Jaspreet Pearl MD Primary Care Provider + Reason for Visit * Reason Onset Date Comments Medication Prior Auth Request 08/11/2023 Encounter Details Date Type Department Care Team (Late st Contact Info) Description 08/11/2023 Telephone [facility] - Rheumatology [address] [place] [address], [facility] [place] [address] Perez Cervantes MD [address] [place] [address] [place] [address] Medication Prior Auth Request Social History Tobacco Use Types Packs/Day [...] encounter Miscellaneous Notes * Telephone Encounter - Mario Bolton, bowl turner - 08/11/2023 3:06 PM CDT Medication Prior Authorization ?? Medication: Enbrel 50mg/ml prefilled syringe Status: Approved through 08/11/2023 Submitted via: Fax # ?? Insurance: [employer] [place] Helpdesk: [phone] * Telephone Encounter - Mario Bolton CPhT - 08/11/2023 9:28 AM CDT Medication Prior Authorization Medication: Enbrel 50mg/ml prefilled syringe Status: Submitted - Pending Submitted via: Fax # Insurance: [employer] [place] Helpdesk: [phone] documented in this encounter Plan of Treatment Upcoming Encounters Date Type Department Care Team (Late st Contact Info) Description 03/27/2025 1:00 PM CDT Office Visit [facility] - Rheumatology [address] [place] [address], [place] [phone] Perez Cervantes MD [address] [place] [address] [place] [phone] documented as of this encounter Visit Diagnoses Not on filedocumented in this encounter Care Teams Crystal Slicer Relationship Specialty Start Date End Date Jaspreet Pearl MD PCP - General 08/08/18 03/26/24 documented as of this encounter
--- OUTSIDE RECORDS SUMMARY | 2024-11-13 17:06 | XMS_ITS | Encounter Summary ---
Author Organization [facility] Address [address] [facility] [place] [address] Care Team Providers Care Paper Making Machine Operator Name Role Phone Jaspreet Pearl MD Primary Care Provider + Encounter Details Date Type Department Care Team (Late Contact Info) Description 12/20/2023 Orders Only [facility] [address] [place] [phone] Perez Cervantes MD [address] [place] [address] [address] [place] [address] Social History Tobacco Use Types [...] Office Visit [facility] - Rheumatology [address] [place] [phone] Perez Cervantes MD [address] [place] [address] [address] [place] [phone] documented as of this encounter Procedures Procedure Name Priority Date/Time Associated Diagnosis Comments CULTURE URINE REFLEXED III 12/20/2023 7:23 AM INSEAM TRIMMER URINALYSIS W/MICROSCOPIC REFLEX TO CULTURE 12/20/2023 7:23 AM INSEAM TRIMMER C-REACTIVE PROTEIN 12/20/2023 7: 23 AM INSEAM TRIMMER ERYTHROCYTE SEDIMENTATION RATE 12/20/2023 7:23 AM INSEAM TRIMMER CBC W AUTO DIFFERENTIAL 12/20/2023 7:23 AM INSEAM TRIMMER COMPREHENSIVE METABOLIC PANEL 12/20/2023 7:23 AM INSEAM TRIMMER documented in this encounter Results * C-REACTIVE PROTEIN (12/20/2023 7:23 AM INSEAM TRIMMER) C-Reactive Protein 4.7 <8.0 mg/L [facility] Comment: Test Performed at: [facility] [address] ??[phone] NAVID SCOTT MD 12/20/2023 7:23 AM INSEAM TRIMMER 12/20/2023 7:24 AM INSEAM TRIMMER Perez Cervantes MD LAB - CHEMISTRY GERA DAVID Performing Organization Address [facility] Co de Phone Number [place] [phone] [place] [address] * CULTURE URINE REFLEXED III (12/20/2023 7:23 AM INSEAM TRIMMER) Reflexive Urine Culture See Below [facility] Comment: NO CULTURE INDICATED Test Performed at: [facility] ??[phone] NAVID SCOTT MD 12/20/2023 7:23 AM INSEAM TRIMMER 12/20/2023 7:24 AM INSEAM TRIMMER Perez Cervantes MD LAB - MICROBIOLOGY O RDERABLES Performing Organization Address [facility]/ZIP Co de Phone Number [address] [address] * (ABNORMAL) URINALYSIS W/MICROSCOPIC REFLEX TO CULTURE (12/20/2023 7:23 AM INSEAM TRIMMER) Color UA DARK YELLOW YELLOW [facility] Appearance CLOUDY(A) CLEAR [facility] Specific [place] UA 1.024 1.001 - 1.035 [facility] pH UA < OR = 5.0 5.0 - 8.0 [facility] Glucose UA NEGATIVE NEGATIVE [facility] Bilirubin UA NEGATIVE NEGATIVE [facility] Ketone UA NEGATIVE NEGATIVE [facility] Blood UA NEGATIVE NEGATIVE [facility] Protein UA NEGATIVE NEGATIVE [facility] Nitrite NEGATIVE NEGATIVE [facility] Leukocyte Esterase NEGATIVE NEGATIVE [facility] WBC UA 0-5 < OR = 5 /HPF [facility] RBC UA 0-2 < OR = 2 /HPF [facility] Epithelial Cell UA 10-20(A) < OR = 5 /HPF [facility] Bacteria UA MODERATE(A) NONE SEEN /HPF [facility] Calcium Oxalate Crystals FEW NONE OR FEW /HPF [facility] Hyaline Casts 0-5(A) NONE SEEN /LPF [facility] Note See Below [facility] Comment: This urine was analyzed for the presence of WBC, RBC, bacteria, casts, and other formed elements. Only those elements seen were reported. Test Performed at: [facility] ??[phone] NAVID SCOTT MD 12/20/2023 7:23 AM INSEAM TRIMMER 12/20/2023 7:24 AM INSEAM TRIMMER Perez Cervantes MD LAB - URINALYSIS ORD ERABLES Performing Organization Address [facility] Co de Phone Number [address] [address] * (ABNORMAL) CBC WITH DIFFERENTIAL (12/20/2023 7:23 AM INSEAM TRIMMER) White Blood Cell Count 3.8 3.8 - 10.8 Thousand/ uL [facility] RBC 4.34 3.80 - 5.10 Million/u L [facility] Hemoglobin 12.7 11.7 - 15.5 g/dL [facility] Hematocrit 40.0 35.0 - 45.0 % [facility] MCV 92.2 80.0 - 100.0 fL [facility] MCH 29.3 27.0 - 33.0 pg [facility] MCHC 31.8(L) 32.0 - 36.0 g/dL [facility] RDW 14.5 11.0 - 15.0 % [facility] Platelet Count 218 140 - 400 Thousand/ uL [facility] MPV 10.8 7.5 - 12.5 fL [facility] Neutrophil Absolute 1459(L) 1500 - 7800 cells/uL [facility] Absolute Bands [facility] Metamyelocytes Absolute [facility] Myelocytes Absolute [facility] Absolute Prolymphocytes [facility] Lymphocytes Absolute 1653 850 - 3900 cells/uL [facility] Absolute Monocytes 456 200 - 950 cells/uL [facility] Eosinophils Absolute 213 15 - 500 cells/uL [facility] Basophils Absolute 19 0 - 200 cells/uL [facility] Absolute Blasts [facility] nRBC Absolute [facility] Granulocytes % 38.4 % [facility] Band Neutrophil [facility] Metamyelocytes [facility] Myelocytes [facility] Promyelocytes [facility] Lymphocytes % 43.5 % [facility] Lymphocyte Reactive [facility] Monocytes % 12.0 % [facility] Eosinophils % 5.6 % [facility] Basophils % 0.5 % [facility] Comment: Test Performed at: [facility] [place], [place] ??[address] NAVID SCOTT MD Blasts [facility] nRBC [facility] Comments [facility] Comment: Test Performed at: [facility] [place], [place] ??[address] NAVID SCOTT MD 12/20/2023 7:23 AM INSEAM TRIMMER 12/20/2023 7:24 AM INSEAM TRIMMER Perez Cervantes MD LAB - HEMATOLOGY ORD ERABLES Performing Organization Address City/[facility]/ZIP Co de Phone Number [facility] [address] [place] [address] * ERYTHROCYTE SEDIMENTATION RATE (12/20/2023 7:23 AM INSEAM TRIMMER) Erythrocyte Sedimentation Rate Westergren 17 < OR = 30 mm/h [facility] Comment: Test Performed at: [facility] [address] [place], [place] ??[phone] NAVID SCOTT MD 12/20/2023 7:23 AM INSEAM TRIMMER 12/20/2023 7:24 AM INSEAM TRIMMER Perez Cervantes MD LAB - HEMATOLOGY ORD ERABLES Performing Organization Address City/[facility]/ZIP Co de Phone Number [facility] [address] [place] [address] * COMPREHENSIVE METABOLIC PANEL (12/20/2023 7:23 AM INSEAM TRIMMER) Glucose 77 65 - 99 mg/dL [facility] Comment: ? Fasting reference interval BUN 15 7 - 25 mg/dL [facility] Creatinine 0.78 0.50 - 1.05 mg/dL [facility] eGFR by Cystatin C 87 > OR = 60 mL/min/1. 73m2 [facility] BUN/Creatinine Ratio SEE NOTE: 6 - (calc) [facility] Comment: ?? Not Reported: BUN and Creatinine are within ?? reference range. ? Sodium 141 135 - 146 mmol/L [facility] Potassium 3.9 3.5 - 5.3 mmol/L [facility] Chloride 106 98 - 110 mmol/L [facility] CO2 26 20 - 32 mmol/L [facility] Calcium 9.5 8.6 - 10.4 mg/dL [facility] Protein Total 6.7 6.1 - 8.1 g/dL [facility] Albumin 4.0 3.6 - 5.1 g/dL [facility] Globulin Total 2.7 1.9 - 3.7 g/dL (calc) [facility] Albumin/Globulin Ratio 1.5 1.0 - 2.5 (calc) [facility] Bilirubin Total 0.3 0.2 - 1.2 mg/dL [facility] Alkaline Phosphatase 103 37 - 153 U/L [facility] AST 18 10 - 35 U/L [facility] ALT 17 6 - 29 U/L [facility] Comment: Test Performed at: [facility] [address] ??[phone] NAVID SCOTT MD 12/20/2023 7:23 AM INSEAM TRIMMER 12/20/2023 7:24 AM INSEAM TRIMMER Perez Cervantes MD LAB - CHEMISTRY GERA DAVID [facility] [address] [place] [address] documented in this encounter Visit Diagnoses Not on filedocumented in this encounter Care Teams Paper Making Machine Operator Relationship Specialty Start Date End Date Jaspreet Pearl MD PCP - General 08/08/18 03/26/24 documented as of this encounter
--- OUTSIDE RECORDS SUMMARY | 2024-11-13 17:06 | XMS_ITS | Encounter Summary ---
Author Organization [facility] Address [address] [facility] [place] [address] Care Team Providers Care Can Reforming Machine Operator Name Role Phone Jaspreet Pearl MD Primary Care Provider + Encounter Details Date Type Department Care Team (Late Contact Info) Description 10/23/2022 Orders Only [facility] [address] [place] [phone] Perez Cervantes MD [address] [place] [address] [address] [place] [address] Encounter for therapeutic drug monitoring; [...] Office Visit [facility] - Rheumatology [address] [place] [phone] Perez Cervantes MD [address] [place] [address] [address] [place] [phone] documented as of this encounter Procedures Procedure Name Priority Date/Time Associated Diagnosis Comments CULTURE URINE REFLEXED II 11/20/2022 7:12 AM HISTORY TUTOR URINALYSIS W/MICROSCOPIC REFLEX TO CULTURE Routine 11/20/2022 7:12 AM HISTORY TUTOR Encounter for therapeutic drug monitoring Polyarthritis C-REACTIVE PROTEIN Routine 11/20/2022 7: 12 AM HISTORY TUTOR Encounter for therapeutic drug monitoring Polyarthritis CULTURE URINE 11/20/2022 7:12 AM HISTORY TUTOR ERYTHROCYTE SEDIMENTATION RATE Routine 11/20/2022 7:12 AM HISTORY TUTOR Encounter for therapeutic drug monitoring Polyarthritis CBC W AUTO DIFFERENTIAL Routine 11/20/2022 7:12 AM HISTORY TUTOR Encounter for therapeutic drug monitoring Polyarthritis COMPREHENSIVE METABOLIC PANEL Routine 11/20/2022 7:12 AM HISTORY TUTOR Encounter for therapeutic drug monitoring Polyarthritis documented in this encounter Results * CULTURE URINE (11/20/2022 7:12 AM HISTORY TUTOR) Culture [facility] Comment: ??CULTURE, URINE, ROUTINE ?Micro Number: ?[id number] ??Test Status: ? Final ??Specimen Source: ?? Urine ??Specimen Quality: ??Adequate ??Result: ?No Growth REPORT COMMENT: FASTING:YES Test Performed at: [facility] ??[phone] NAVID SCOTT MD 11/20/2022 7:12 AM HISTORY TUTOR 11/20/2022 7:13 AM HISTORY TUTOR Perez Cervantes MD LAB - MICROBIOLOGY O RDERABLES [address] [address] * CULTURE URINE REFLEXED II (11/20/2022 7:12 AM HISTORY TUTOR) Pathologist [facility] Reflexive Urine Culture See Below [facility] Comment: CULTURE INDICATED - RESULTS TO FOLLOW Test Performed at: [facility] [address] ??[phone] NAVID SCOTT MD 11/20/2022 7:12 AM HISTORY TUTOR 11/20/2022 7:13 AM HISTORY TUTOR Perez Cervantes MD LAB - MICROBIOLOGY O RDERABLES Performing Organization Address [facility]/ZIP Co de Phone Number [address] [address] * (ABNORMAL) URINALYSIS W/MICROSCOPIC REFLEX TO CULTURE (11/20/2022 7:12 AM HISTORY TUTOR) Color UA YELLOW YELLOW [facility] Appearance CLEAR CLEAR [facility] Specific [place] UA 1.017 1.001 - 1.035 [facility] pH UA < OR = 5.0 5.0 - 8.0 [facility] Glucose UA NEGATIVE NEGATIVE [facility] Bilirubin UA NEGATIVE NEGATIVE [facility] Ketone UA NEGATIVE NEGATIVE [facility] Blood UA NEGATIVE NEGATIVE [facility] Protein UA NEGATIVE NEGATIVE [facility] Nitrite NEGATIVE NEGATIVE [facility] Leukocyte Esterase 2+(A) NEGATIVE [facility] WBC UA 0-5 < OR = 5 /HPF [facility] RBC UA NONE SEEN < OR = 2 /HPF [facility] Epithelial Cell UA 0-5 < OR = 5 /HPF [facility] Bacteria UA NONE SEEN NONE SEEN /HPF [facility] Hyaline Casts NONE SEEN NONE SEEN /LPF [facility] Comment: Test Performed at: [facility] [address] ??[phone] NAVID SCOTT MD Urine URINE SPECIMEN OBTAINED BY CLEAN CATCH PROCEDURE / Unknown 11/20/2022 7:12 AM HISTORY TUTOR 11/20/2022 7:13 AM HISTORY TUTOR Perez Cervantes MD LAB - URINALYSIS ORD ERABLES Performing Organization Address [facility]/ZIP Co de Phone Number [address] [address] * ERYTHROCYTE SEDIMENTATION RATE (11/20/2022 7:12 AM HISTORY TUTOR) Pathologist [facility] Erythrocyte Sedimentation Rate Westergren 19 < OR = 30 mm/h [facility] Comment: Test Performed at: [facility] [place] [address] [place] ??[phone] ASPEN HOLLINGSWORTH DO,MPH Blood BLOOD SPECIMEN / Unknown 11/20/2022 7:12 AM HISTORY TUTOR 11/20/2022 7:13 AM HISTORY TUTOR Perez Cervantes MD LAB - HEMATOLOGY ORD ERABLES Performing Organization Address [facility] Co de Phone Number [facility] [address] [place] [address] * C-REACTIVE PROTEIN (11/20/2022 7:12 AM HISTORY TUTOR) C-Reactive Protein 3.0 <8.0 mg/L [facility] Comment: Test Performed at: [facility] [address] [place] ??[phone] ASPEN HOLLINGSWORTH DO,MPH Blood BLOOD SPECIMEN / Unknown 11/20/2022 7:12 AM HISTORY TUTOR 11/20/2022 7:13 AM HISTORY TUTOR Perez Cervantes MD LAB - CHEMISTRY ORDE RABDEMARCO Performing Organization Address [facility] de Phone Number [facility] [address] [place] [address] * (ABNORMAL) COMPREHENSIVE METABOLIC PANEL (11/20/2022 7:12 AM HISTORY TUTOR) Glucose 79 65 - 99 mg/dL [facility] Comment: ? Fasting reference interval BUN 14 7 - 25 mg/dL [facility] Creatinine 0.71 0.50 - 1.03 mg/dL [facility] eGFR by Cystatin C 98 > OR = 60 mL/min/1. 73m2 [facility] Comment: The eGFR is based on the CKD-EPI 2020 equation. To calculate the new eGFR from a previous Creatinine or Cystatin C result, go to https://www.kidney.org/professionals/ kdoqi/gfr%5Fcalculator BUN/Creatinine Ratio NOT APPLICABLE (calc) [facility] Sodium 140 135 - 146 mmol/L [facility] Potassium 3.8 3.5 - 5.3 mmol/L [facility] Chloride 104 98 - 110 mmol/L [facility] CO2 31 20 - 32 mmol/L [facility] Calcium 10.0 8.6 - 10.4 mg/dL [facility] Protein Total 7.3 6.1 - 8.1 g/dL [facility] Albumin 4.3 3.6 - 5.1 g/dL [facility] Globulin Total 3.0 1.9 - 3.7 g/dL (calc) [facility] Albumin/Globuli n Ratio 1.4 1.0 - 2.5 (calc) [facility] Bilirubin Total 0.6 0.2 - 1.2 mg/dL [facility] Alkaline Phosphatase 89 37 - 153 U/L [facility] AST 24 10 - 35 U/L [facility] ALT 31(H) 6 - 29 U/L [facility] Comment: Test Performed at: [facility] [address] [facility] [phone] ASPEN HOLLINGSWORTH DO,MPH Blood BLOOD SPECIMEN / Unknown 11/20/2022 7:12 AM HISTORY TUTOR 11/20/2022 7:13 AM HISTORY TUTOR Perez Cervantes MD LAB - CHEMISTRY ORDE JOANN Performing Organization Address City/State/[facility] Co de Phone Number [facility] [address] [place] [address] * CBC WITH DIFFERENTIAL (11/20/2022 7:12 AM HISTORY TUTOR) White Blood Cell Count 3.8 3.8 - 10.8 Thousand/u L [facility] RBC 4.17 3.80 - 5.10 Million/uL [facility] Hemoglobin 12.5 11.7 - 15.5 g/dL [facility] Hematocrit 38.2 35.0 - 45.0 % [facility] MCV 91.6 80.0 - 100.0 fL [facility] MCH 30.0 27.0 - 33.0 pg [facility] MCHC 32.7 32.0 - 36.0 g/dL [facility] RDW 14.9 11.0 - 15.0 % [facility] Platelet Count 230 140 - 400 Thousand/u L [facility] MPV 10.7 7.5 - 12.5 fL [facility] Neutrophil Absolute 1972 1500 - 7800 cells/uL [facility] Absolute Bands [facility] Metamyelocytes Absolute [facility] Myelocytes Absolute [facility] Absolute Prolymphocytes [facility] Lymphocytes Absolute 1391 850 - 3900 cells/uL [facility] Absolute Monocytes 338 200 - 950 cells/uL [facility] Eosinophils Absolute 87 15 - 500 cells/uL [facility] Basophils Absolute 11 0 - 200 cells/uL [facility] Absolute Blasts [facility] nRBC Absolute [facility] Granulocytes % 51.9 % [facility] Band Neutrophil [facility] Metamyelocytes [facility] Myelocytes [facility] Promyelocytes [facility] Lymphocytes % 36.6 % [facility] Lymphocyte Reactive [facility] Monocytes % 8.9 % [facility] Eosinophils % 2.3 % [facility] Basophils % 0.3 % [facility] Comment: Test Performed at: [facility] [place] [address] [place] ??[phone] ASPEN HOLLINGSWORTH DO,MPH Blasts [facility] nRBC [facility] Comments [facility] Comment: Test Performed at: [facility] [place] [address] [place] ??[phone] ASPEN HOLLINGSWORTH DO,MPH Blood BLOOD SPECIMEN / Unknown 11/20/2022 7:12 AM HISTORY TUTOR 11/20/2022 7:13 AM HISTORY TUTOR Perez Cervantes MD LAB - HEMATOLOGY ORD ERABLES Performing Organization Address City/State/[facility] Co de Phone Number [facility] [address] [place] [address] documented in this encounter Visit Diagnoses Diagnosis Encounter for therapeutic drug monitoring Polyarthritis Unspecified polyarthropathy or polyarthritis, site unspecified documented in this encounter Care Teams Can Reforming Machine Operator Relationship Specialty Start Date End Date Jaspreet Pearl MD PCP - General 08/08/18 03/26/24 documented as of this encounter
--- OUTSIDE RECORDS SUMMARY | 2024-11-13 17:06 | XMS_ITS | Encounter Summary ---
Author Organization [facility] Health Address [address] [facility] [place] [address] Care Team Providers Care Shelf Drier Operator Name Role Phone Dayanara Plaza MD Primary Care Provider [phone] Encounter Details Date Type Department Care Team (Latest Contact Info) Description 03/27/2024 2:24 PM CDT - 03/27/2024 11:59 PM CDT Hospital Encounter [facility] DIAGNOSTIC RAD OP [address] [place] [address] Perez Cervantes MD [address] [place] [address] Discharge Disposition: Home or Self [...] End Date Azelastine HCl 137 MCG/SPRAY SOLN Thayer 2 sprays into the nose 2 times daily dicyclomine (BENTYL) 20 MG tablet Take 1 (one) tablet by mouth as needed estradiol (Estrace) 0.1 MG/GM vaginal cream Insert into the vagina once daily 10/26/2023 fexofenadine (Arabella) 180 MG tablet Take 1 [...] by mouth every 24 hours as needed traZODone (Desyrel) 100 MG tablet Take 1 (one) tablet by mouth once daily 02/28/2024 valACYclovir (Valtrex) 1 GM tablet Take 1 (one) tablet by mouth once daily 03/04/2024 ENBREL 50 MG/ML prefilled syringe INJECT 50 MG (1 SYRINGE) UNDER THE SKIN ONCE WEEKLY 12 syringe 3 02/03/2019 07/11/2024 folic acid (Folvite) 1 MG tabletIndications:Polya rthritis TAKE 1 TABLET BY MOUTH DAILY 30 tablet 11 04/02/2023 04/20/2024 documented as of this encounter Plan of Treatment Upcoming Encounters Date Type Department Care Team (Late st Contact Info) Description 03/27/2025 1:00 PM CDT Office Visit [facility] - Rheumatology [address] [place] [address], [facility] [place] [phone] Perez Cervantes MD [address] [place] [address] [place] [phone] documented as of this encounter Procedures Procedure Name Priority Date/Time Associated Diagnosis Comments XR FOOT RIGHT 2VW Routine 03/27/2024 2:3 1 PM CDT Polyarthritis XR FOOT LEFT 2VW Routine 03/27/2024 2:31 PM CDT Polyarthritis XR HAND RIGHT 2VW Routine 03/27/2024 2:3 1 PM CDT Polyarthritis XR HAND LEFT 2VW Routine 03/27/2024 2:31 PM CDT Polyarthritis documented in this encounter Results * XR HAND LEFT 2VW (03/27/2024 2:31 PM CDT) Anatomical Region Laterality Modality Wrist / Hand Radiographic Corin ging 03/27/2024 2:44 PM CDT Impressions 03/27/2024 2:57 PM CDT IMPRESSION: No significant arthritis on the above studies. Report dictated by Td Burton MD, MD (radiology manager). I, Dinh Toledo MD have personally reviewed and interpreted this examination/study. > Interpreting Provider: Dinh Toledo MD on 03/27/2024 2:57 PM Narrative 03/27/2024 2:57 PM CDT PROCEDURE: ??XR HAND RIGHT 2VW, XR HAND LEFT 2VW, XR FOOT LEFT 2VW, XR FOOT RIGHT 2VW, DATE/TIME OF EXAM: ??03/27/2024 2:31 PM, LOCATION [facility] INDICATION: M13.0: Polyarthritis COMPARISON: Right and left hand x-rays dated 10/31/2012. Right and left feet x-rays dated 12/10/2020. FINDINGS: Right hand: The osseous structures are intact and well aligned without acute fracture or dislocation. No significant erosions or degenerative changes are noted. Bone density and texture are normal. No soft tissue swelling is present. Left hand: No fracture or dislocation is present. The joint spaces are normal. There is a small osteophyte at the interphalangeal joint of the thumb. No erosions are seen. ??Bone density is normal. ??The soft tissues are normal. ?? Right foot: No fracture or dislocation is present. The joint spaces are normal. No erosions are seen. ??Bone density is normal. ??The soft tissues are normal. No erosions are identified. Left foot: No fracture or dislocation is present. The joint spaces are normal. There is a small subchondral cysts at the fifth toe proximal interphalangeal joint. No erosions are seen. ??Bone density is normal. ??The soft tissues are normal. No erosions are identified. A small calcaneal spur is present. Procedure Note Dinh Toledo MD - 03/27/2024 PROCEDURE: XR HAND RIGHT 2VW, XR HAND LEFT 2VW, XR FOOT LEFT 2VW, XRFOOT RIGHT 2VW, DATE/TIME OF EXAM: 03/27/2024 2:31 PM, LOCATION [facility] INDICATION: M13.0: Polyarthritis COMPARISON: Right and left hand x-rays dated 10/31/2012. Right and left feet x-rays dated 12/10/2020. FINDINGS: Right hand: The osseous structures are intact and well aligned without acutefracture or dislocation. No significant erosions or degenerative changes arenoted. Bone density and texture are normal. No soft tissue swelling is present. Left hand: No fracture or dislocation is present. The joint spaces are normal.There is a small osteophyte at the interphalangeal joint of the thumb. No erosions are seen. Bone density is normal. The soft tissues are normal. Right foot: No fracture or dislocation is present. The joint spaces are normal. No erosions are seen. Bone density is normal. The soft tissues arenormal. No erosions are identified. Left foot: No fracture or dislocation is present. The joint spaces are normal.There is a small subchondral cysts at the fifth toe proximal interphalangeal joint. No erosions are seen. Bone density is normal. The soft tissuesare normal. No erosions are identified. A small calcaneal spur is present. IMPRESSION: No significant arthritis on the above studies. Report dictated by Td Burton MD, MD (radiology manager). IDinh MD have personally reviewed and interpreted this examination/study. > Interpreting Provider: Dinh Toledo MD on 03/27/2024 2:57 PM Perez Cervantes MD DIAGNOSTIC IMAGING O RDERABLES * XR FOOT LEFT 2VW (03/27/2024 2:31 PM CDT) Anatomical Region Laterality Modality Ankle / Foot Radiographic Corin ging 03/27/2024 2:44 PM CDT Impressions 03/27/2024 2:57 PM CDT IMPRESSION: No significant arthritis on the above studies. Report dictated by Td Burton MD, MD (radiology manager). I, Dinh Toledo MD have personally reviewed and interpreted this examination/study. > Interpreting Provider: Dinh Toledo MD on 03/27/2024 2:57 PM Narrative 03/27/2024 2:57 PM CDT PROCEDURE: ??XR HAND RIGHT 2VW, XR HAND LEFT 2VW, XR FOOT LEFT 2VW, XR FOOT RIGHT 2VW, DATE/TIME OF EXAM: ??03/27/2024 2:31 PM, LOCATION [facility] INDICATION: M13.0: Polyarthritis COMPARISON: Right and left hand x-rays dated 10/31/2012. Right and left feet x-rays dated 12/10/2020. FINDINGS: Right hand: The osseous structures are intact and well aligned without acute fracture or dislocation. No significant erosions or degenerative changes are noted. Bone density and texture are normal. No soft tissue swelling is present. Left hand: No fracture or dislocation is present. The joint spaces are normal. There is a small osteophyte at the interphalangeal joint of the thumb. No erosions are seen. ??Bone density is normal. ??The soft tissues are normal. ?? Right foot: No fracture or dislocation is present. The joint spaces are normal. No erosions are seen. ??Bone density is normal. ??The soft tissues are normal. No erosions are identified. Left foot: No fracture or dislocation is present. The joint spaces are normal. There is a small subchondral cysts at the fifth toe proximal interphalangeal joint. No erosions are seen. ??Bone density is normal. ??The soft tissues are normal. No erosions are identified. A small calcaneal spur is present. Procedure Note Dinh Toledo MD - 03/27/2024 PROCEDURE: XR HAND RIGHT 2VW, XR HAND LEFT 2VW, XR FOOT LEFT 2VW, XRFOOT RIGHT 2VW, DATE/TIME OF EXAM: 03/27/2024 2:31 PM, LOCATION [facility] INDICATION: M13.0: Polyarthritis COMPARISON: Right and left hand x-rays dated 10/31/2012. Right and left feet x-rays dated 12/10/2020. FINDINGS: Right hand: The osseous structures are intact and well aligned without acutefracture or dislocation. No significant erosions or degenerative changes arenoted. Bone density and texture are normal. No soft tissue swelling is present. Left hand: No fracture or dislocation is present. The joint spaces are normal.There is a small osteophyte at the interphalangeal joint of the thumb. No erosions are seen. Bone density is normal. The soft tissues are normal. Right foot: No fracture or dislocation is present. The joint spaces are normal. No erosions are seen. Bone density is normal. The soft tissues arenormal. No erosions are identified. Left foot: No fracture or dislocation is present. The joint spaces are normal.There is a small subchondral cysts at the fifth toe proximal interphalangeal joint. No erosions are seen. Bone density is normal. The soft tissuesare normal. No erosions are identified. A small calcaneal spur is present. IMPRESSION: No significant arthritis on the above studies. Report dictated by Td Burton MD, MD (radiology manager). Dinh Osorio MD have personally reviewed and interpreted this examination/study. > Interpreting Provider: Dinh Toledo MD on 03/27/2024 2:57 PM Perez Cervantes MD DIAGNOSTIC IMAGING O RDERABLES * XR FOOT RIGHT 2VW (03/27/2024 2:31 PM CDT) Anatomical Region Laterality Modality Ankle / Foot Radiographic Corin ging 03/27/2024 2:44 PM CDT Impressions 03/27/2024 2:57 PM CDT IMPRESSION: No significant arthritis on the above studies. Report dictated by Td Burton MD, MD (radiology manager). Dinh Osorio MD have personally reviewed and interpreted this examination/study. > Interpreting Provider: Dinh Toledo MD on 03/27/2024 2:57 PM Narrative 03/27/2024 2:57 PM CDT PROCEDURE: ??XR HAND RIGHT 2VW, XR HAND LEFT 2VW, XR FOOT LEFT 2VW, XR FOOT RIGHT 2VW, DATE/TIME OF EXAM: ??03/27/2024 2:31 PM, LOCATION ??[facility] INDICATION: M13.0: Polyarthritis COMPARISON: Right and left hand x-rays dated 10/31/2012. Right and left feet x-rays dated 12/10/2020. FINDINGS: Right hand: The osseous structures are intact and well aligned without acute fracture or dislocation. No significant erosions or degenerative changes are noted. Bone density and texture are normal. No soft tissue swelling is present. Left hand: No fracture or dislocation is present. The joint spaces are normal. There is a small osteophyte at the interphalangeal joint of the thumb. No erosions are seen. ??Bone density is normal. ??The soft tissues are normal. ?? Right foot: No fracture or dislocation is present. The joint spaces are normal. No erosions are seen. ??Bone density is normal. ??The soft tissues are normal. No erosions are identified. Left foot: No fracture or dislocation is present. The joint spaces are normal. There is a small subchondral cysts at the fifth toe proximal interphalangeal joint. No erosions are seen. ??Bone density is normal. ??The soft tissues are normal. No erosions are identified. A small calcaneal spur is present. Procedure Note Dinh Toledo MD - 03/27/2024 PROCEDURE: XR HAND RIGHT 2VW, XR HAND LEFT 2VW, XR FOOT LEFT 2VW, XRFOOT RIGHT 2VW, DATE/TIME OF EXAM: 03/27/2024 2:31 PM, LOCATION [facility] INDICATION: M13.0: Polyarthritis COMPARISON: Right and left hand x-rays dated 10/31/2012. Right and left feet x-rays dated 12/10/2020. FINDINGS: Right hand: The osseous structures are intact and well aligned without acutefracture or dislocation. No significant erosions or degenerative changes arenoted. Bone density and texture are normal. No soft tissue swelling is present. Left hand: No fracture or dislocation is present. The joint spaces are normal.There is a small osteophyte at the interphalangeal joint of the thumb. No erosions are seen. Bone density is normal. The soft tissues are normal. Right foot: No fracture or dislocation is present. The joint spaces are normal. No erosions are seen. Bone density is normal. The soft tissues arenormal. No erosions are identified. Left foot: No fracture or dislocation is present. The joint spaces are normal.There is a small subchondral cysts at the fifth toe proximal interphalangeal joint. No erosions are seen. Bone density is normal. The soft tissuesare normal. No erosions are identified. A small calcaneal spur is present. IMPRESSION: No significant arthritis on the above studies. Report dictated by Td Burton MD, MD (radiology manager). Dinh Osorio MD have personally reviewed and interpreted this examination/study. > Interpreting Provider: Dinh Toledo MD on 03/27/2024 2:57 PM Perez Cervantes MD DIAGNOSTIC IMAGING O RDERABLES * XR HAND RIGHT 2VW (03/27/2024 2:31 PM CDT) Anatomical Region Laterality Modality Wrist / Hand Radiographic Corin ging 03/27/2024 2:44 PM CDT Impressions 03/27/2024 2:57 PM CDT IMPRESSION: No significant arthritis on the above studies. Report dictated by Td Burton MD, MD (radiology manager). Dinh Osorio MD have personally reviewed and interpreted this examination/study. > Interpreting Provider: Dinh Toledo MD on 03/27/2024 2:57 PM Narrative 03/27/2024 2:57 PM CDT PROCEDURE: ??XR HAND RIGHT 2VW, XR HAND LEFT 2VW, XR FOOT LEFT 2VW, XR FOOT RIGHT 2VW, DATE/TIME OF EXAM: ??03/27/2024 2:31 PM, LOCATION ??[facility] INDICATION: M13.0: Polyarthritis COMPARISON: Right and left hand x-rays dated 10/31/2012. Right and left feet x-rays dated 12/10/2020. FINDINGS: Right hand: The osseous structures are intact and well aligned without acute fracture or dislocation. No significant erosions or degenerative changes are noted. Bone density and texture are normal. No soft tissue swelling is present. Left hand: No fracture or dislocation is present. The joint spaces are normal. There is a small osteophyte at the interphalangeal joint of the thumb. No erosions are seen. ??Bone density is normal. ??The soft tissues are normal. ?? Right foot: No fracture or dislocation is present. The joint spaces are normal. No erosions are seen. ??Bone density is normal. ??The soft tissues are normal. No erosions are identified. Left foot: No fracture or dislocation is present. The joint spaces are normal. There is a small subchondral cysts at the fifth toe proximal interphalangeal joint. No erosions are seen. ??Bone density is normal. ??The soft tissues are normal. No erosions are identified. A small calcaneal spur is present. Procedure Note Dinh Toledo MD - 03/27/2024 PROCEDURE: XR HAND RIGHT 2VW, XR HAND LEFT 2VW, XR FOOT LEFT 2VW, XRFOOT RIGHT 2VW, DATE/TIME OF EXAM: 03/27/2024 2:31 PM, LOCATION [facility] INDICATION: M13.0: Polyarthritis COMPARISON: Right and left hand x-rays dated 10/31/2012. Right and left feet x-rays dated 12/10/2020. FINDINGS: Right hand: The osseous structures are intact and well aligned without acutefracture or dislocation. No significant erosions or degenerative changes arenoted. Bone density and texture are normal. No soft tissue swelling is present. Left hand: No fracture or dislocation is present. The joint spaces are normal.There is a small osteophyte at the interphalangeal joint of the thumb. No erosions are seen. Bone density is normal. The soft tissues are normal. Right foot: No fracture or dislocation is present. The joint spaces are normal. No erosions are seen. Bone density is normal. The soft tissues arenormal. No erosions are identified. Left foot: No fracture or dislocation is present. The joint spaces are normal.There is a small subchondral cysts at the fifth toe proximal interphalangeal joint. No erosions are seen. Bone density is normal. The soft tissuesare normal. No erosions are identified. A small calcaneal spur is present. IMPRESSION: No significant arthritis on the above studies. Report dictated by Td Burton MD, MD (radiology manager). I, Dinh Toledo MD have personally reviewed and interpreted this examination/study. > Interpreting Provider: Dinh Toledo MD on 03/27/2024 2:57 PM Perez Cervantes MD DIAGNOSTIC IMAGING O RDERABLES documented in this encounter Visit Diagnoses Diagnosis Polyarthritis Unspecified polyarthropathy or polyarthritis, site unspecified documented in this encounter Care Teams Shelf Drier Operator Relationship Specialty [place] [id number] [phone] PCP - General Family Medicine 03/27/24 documented as of this encounter
--- OUTSIDE RECORDS SUMMARY | 2024-11-13 17:06 | XMS_ITS | Encounter Summary ---
Author Organization [facility] Address [address] [facility] [place] [address] Care Team Providers Care Accounting Advisory Services Manager Name Role Phone Jaspreet Pearl MD Primary Care Provider + Encounter Details Date Type Department Care Team (Late Contact Info) Description 04/09/2023 Orders Only [facility] [address] [place] [phone] Perez Cervantes MD [address] [place] [address] [address] [address] Encounter for therapeutic drug monitoring; [...] Office Visit [facility] - Rheumatology [address] [place] [phone] Perez Cervantes MD [address] [place] [address] [address] [place] [phone] documented as of this encounter Procedures Procedure Name Priority Date/Time Associated Diagnosis Comments CULTURE URINE REFLEXED III 04/15/2023 7:37 AM CDT URINALYSIS W/MICROSCOPIC REFLEX TO CULTURE Routine 04/15/2023 7:37 AM CDT Encounter for therapeutic drug monitoring Polyarthritis C-REACTIVE PROTEIN Routine 04/15/2023 7: 37 AM CDT Encounter for therapeutic drug monitoring Polyarthritis ERYTHROCYTE SEDIMENTATION RATE Routine 04/15/2023 7:37 AM CDT Encounter for therapeutic drug monitoring Polyarthritis CBC W AUTO DIFFERENTIAL Routine 04/15/2023 7:37 AM CDT Encounter for therapeutic drug monitoring Polyarthritis COMPREHENSIVE METABOLIC PANEL Routine 04/15/2023 7:37 AM CDT Encounter for therapeutic drug monitoring Polyarthritis documented in this encounter Results * CULTURE URINE REFLEXED III (04/15/2023 7:37 AM CDT) Reflexive Urine Culture See Below [facility] Comment: NO CULTURE INDICATED Test Performed at: [facility] ??[phone] NAVID SCOTT MD 04/15/2023 7:37 AM CDT 04/15/2023 7:37 AM CDT Perez Cervantes MD LAB - MICROBIOLOGY O RDERABLES [address] [address] * URINALYSIS W/MICROSCOPIC REFLEX TO CULTURE (04/15/2023 7:37 AM CDT) Color UA YELLOW YELLOW [facility] Appearance CLEAR CLEAR [facility] Specific [place] UA 1.022 1.001 - 1.035 [facility] pH UA < OR = 5.0 5.0 - 8.0 [facility] Glucose UA NEGATIVE NEGATIVE [facility] Bilirubin UA NEGATIVE NEGATIVE [facility] Ketone UA NEGATIVE NEGATIVE [facility] Blood UA NEGATIVE NEGATIVE [facility] Protein UA NEGATIVE NEGATIVE [facility] Nitrite NEGATIVE NEGATIVE [facility] Leukocyte Esterase NEGATIVE NEGATIVE [facility] WBC UA NONE SEEN < OR = 5 /HPF [facility] RBC [...] elements seen were reported. Test Performed at: [facility] ??[phone] NAVID SCOTT MD Urine URINE SPECIMEN OBTAINED BY CLEAN CATCH PROCEDURE / Unknown 04/15/2023 7:37 AM CDT 04/15/2023 7:37 AM CDT Perez Cervantes MD LAB - URINALYSIS ORD ERABLES Performing Organization Address [facility] Co de Phone Number [address] [address] * ERYTHROCYTE SEDIMENTATION RATE (04/15/2023 7:37 AM CDT) Erythrocyte Sedimentation Rate Westergren 11 < OR = 30 mm/h [facility] Comment: Test Performed at: [facility] [id number] [place], [place] ??[phone] NAVID SCOTT MD Blood BLOOD SPECIMEN / Unknown 04/15/2023 7:37 AM CDT 04/15/2023 7:37 AM CDT Perez Cervantes MD LAB - HEMATOLOGY ORD ERABLES Performing Organization Address [facility] Co de Phone Number [address] [address] * C-REACTIVE PROTEIN (04/15/2023 7:37 AM CDT) C-Reactive Protein 2.7 <8.0 mg/L [facility] Comment: Test Performed at: [facility] [place] [address] [place], [place] ??[phone] NAVID SCOTT MD Blood BLOOD SPECIMEN / Unknown 04/15/2023 7:37 AM CDT 04/15/2023 7:37 AM CDT Perez Cervantes MD LAB - CHEMISTRY GERA DAVID [facility] Organization Address City/State/ZIP Co de Phone Number [facility] [address] [place] [address] * (ABNORMAL) COMPREHENSIVE METABOLIC PANEL (04/15/2023 7:37 AM CDT) Glucose 85 65 - 99 mg/dL [facility] Comment: ? Fasting reference interval BUN 16 7 - 25 mg/dL [facility] Creatinine 0.77 0.50 - 1.05 mg/dL [facility] eGFR by Cystatin C 88 > OR = 60 mL/min/1. 73m2 [facility] Comment: The eGFR is based on the CKD-EPI 2020 equation. To calculate the new eGFR from a previous Creatinine or Cystatin C result, go to https://www.kidney.org/professionals/ kdoqi/gfr%5Fcalculator BUN/Creatinine Ratio NOT APPLICABLE 6 - 22 (calc) [facility] Sodium 140 135 - 146 mmol/L [facility] Potassium 4.7 3.5 - 5.3 mmol/L [facility] Chloride 105 98 - 110 mmol/L [facility] CO2 27 20 - 32 mmol/L [facility] Calcium 9.6 8.6 - 10.4 mg/dL [facility] Protein Total 6.9 6.1 - 8.1 g/dL [facility] Albumin 4.2 3.6 - 5.1 g/dL [facility] Globulin Total 2.7 1.9 - 3.7 g/dL (calc) [facility] Albumin/Globuli n Ratio 1.6 1.0 - 2.5 (calc) [facility] Bilirubin Total 0.4 0.2 - 1.2 mg/dL [facility] Alkaline Phosphatase 89 37 - 153 U/L [facility] AST 34 10 - 35 U/L [facility] ALT 50(H) 6 - 29 U/L [facility] Comment: Test Performed at: [employer] [address] [place] [address] [facility] [place] ??[phone] NAVID SCOTT MD Blood BLOOD SPECIMEN / Unknown 04/15/2023 7:37 AM CDT 04/15/2023 7:37 AM CDT Perez Cervantes MD LAB - CHEMISTRY GERA DAVID Performing Organization Address City/[facility]/ZIP Co de Phone Number [facility] [address] [place] [address] * CBC WITH DIFFERENTIAL (04/15/2023 7:37 AM CDT) White Blood Cell Count 4.4 3.8 - 10.8 Thousand/u L [facility] RBC 4.04 3.80 - 5.10 Million/uL [facility] Hemoglobin 12.4 11.7 - 15.5 g/dL [facility] Hematocrit 38.2 35.0 - 45.0 % [facility] MCV 94.6 80.0 - 100.0 fL [facility] MCH 30.7 27.0 - 33.0 pg [facility] MCHC 32.5 32.0 - 36.0 g/dL [facility] RDW 14.8 11.0 - 15.0 % [facility] Platelet Count 193 140 - 400 Thousand/u L [facility] MPV 10.1 7.5 - 12.5 fL [facility] Neutrophil Absolute 2482 1500 - 7800 cells/uL [facility] Absolute Bands [facility] Metamyelocytes Absolute [facility] Myelocytes Absolute [facility] Absolute Prolymphocytes [facility] Lymphocytes Absolute 1285 850 - 3900 cells/uL [facility] Absolute Monocytes 515 200 - 950 cells/uL [facility] Eosinophils Absolute 110 15 - 500 cells/uL [facility] Basophils Absolute 9 0 - 200 cells/uL [facility] Absolute Blasts [facility] nRBC Absolute [facility] Granulocytes % 56.4 % [facility] Band Neutrophil [facility] Metamyelocytes [facility] Myelocytes [facility] Promyelocytes [facility] Lymphocytes % 29.2 % [facility] Lymphocyte Reactive [facility] Monocytes % 11.7 % [facility] Eosinophils % 2.5 % [facility] Basophils % 0.2 % [facility] Comment: Test Performed at: [facility] [address] [place], [place] ??[phone] NAVID SCOTT MD Blasts [facility] nRBC [facility] Comments [facility] Comment: Test Performed at: [facility] [address] [place], [place] ??[phone] NAVID SCOTT MD Blood BLOOD SPECIMEN / Unknown 04/15/2023 7:37 AM CDT 04/15/2023 7:37 AM CDT Perez Cervantes MD LAB - HEMATOLOGY ORD DANITA Performing Organization Address City/[facility]/ZIP Co de Phone Number [facility] [phone] [place] [address] documented in this encounter Visit Diagnoses Diagnosis Encounter for therapeutic drug monitoring Polyarthritis Unspecified polyarthropathy or polyarthritis, site unspecified documented in this encounter Care Teams Accounting Advisory Services Manager Relationship Specialty Start Date End Date Jaspreet Pearl MD PCP - General 08/08/18 03/26/24 documented as of this encounter
--- OUTSIDE RECORDS SUMMARY | 2024-11-13 17:06 | XMS_ITS | Encounter Summary ---
Author Organization [facility] Address [address] [place] [address] Care Team Providers Care Nutrient Management Specialist Name Role Phone Jaspreet Pearl MD Primary Care Provider + Encounter Details Date Type Department Care Team (Late st Contact Info) Description 01/28/2023 Orders Only [facility] [address] [place] [phone] Perez Cervantes MD [address] [place] [address] 2[place] [address] Social History Tobacco Use Types [...] Office Visit [facility] - Rheumatology [address] [place] [phone] Perez Cervantes MD [address] [place] [address] [address] [phone] documented as of this encounter Procedures Procedure Name Priority Date/Time Associated Diagnosis Comments CULTURE URINE REFLEXED III 01/28/2023 7:03 AM CDT URINALYSIS W/MICROSCOPIC REFLEX TO CULTURE 01/28/2023 7:03 AM CDT C-REACTIVE PROTEIN 01/28/2023 7: 03 AM CDT ERYTHROCYTE SEDIMENTATION RATE 01/28/2023 7:03 AM CDT CBC W AUTO DIFFERENTIAL 01/28/2023 7:03 AM CDT COMPREHENSIVE METABOLIC PANEL 01/28/2023 7:03 AM CDT documented in this encounter Results * C-REACTIVE PROTEIN (01/28/2023 7:03 AM CDT) C-Reactive Protein 1.8 <8.0 mg/L [facility] Comment: REPORT COMMENT: FASTING:YES Test Performed at: [facility] [place] [address] [place], [place] ??[phone] NAVID SCOTT MD 01/28/2023 7:03 AM CDT 01/28/2023 7:05 AM CDT Perez Cervantes MD LAB - CHEMISTRY [facility] Organization Address City/State/ZIP Co de Phone Number [address] [address] * CULTURE URINE REFLEXED III (01/28/2023 7:03 AM CDT) Pathologist [facility] Reflexive Urine Culture See Below [facility] Comment: NO CULTURE INDICATED Test Performed at: [facility] ??[phone] NAVID SCOTT MD 01/28/2023 7:03 AM CDT 01/28/2023 7:05 AM CDT Perez Cervantes MD LAB - MICROBIOLOGY O RDERABLES Performing Organization Address [facility] Co de Phone Number [address] [address] * (ABNORMAL) URINALYSIS W/MICROSCOPIC REFLEX TO CULTURE (01/28/2023 7:03 AM CDT) Pathologist [facility] Color UA DARK YELLOW YELLOW [facility] Appearance CLEAR CLEAR [facility] Specific [place] UA 1.021 1.001 - 1.035 [facility] pH UA 5.5 5.0 - 8.0 [facility] Glucose UA NEGATIVE [...] SEEN NONE SEEN /HPF [facility] Hyaline Casts 0-5(A) NONE SEEN /LPF [facility] Comment: Test Performed at: [facility] ??[phone] NAVID SCOTT MD 01/28/2023 7:03 AM CDT 01/28/2023 7:05 AM CDT Perez Cervantes MD LAB - URINALYSIS ORD ERABLES Performing Organization Address [facility] Co de Phone Number [address] [address] * (ABNORMAL) CBC WITH DIFFERENTIAL (01/28/2023 7:03 AM CDT) Pathologist [facility] White Blood Cell Count 3.7(L) 3.8 - 10.8 Thousand/ uL [facility] RBC 4.11 3.80 - 5.10 Million/u L [facility] Hemoglobin 12.5 11.7 - 15.5 g/dL [facility] Hematocrit 38.2 35.0 - 45.0 % [facility] MCV 92.9 80.0 - 100.0 fL [facility] MCH 30.4 27.0 - 33.0 pg [facility] MCHC 32.7 32.0 - 36.0 g/dL [facility] RDW 14.4 11.0 - 15.0 % [facility] Platelet Count 212 140 - 400 Thousand/ uL [facility] MPV 10.9 7.5 - 12.5 fL [facility] Neutrophil Absolute 1787 1500 - 7800 cells/uL [facility] Absolute Bands [facility] Metamyelocytes Absolute [facility] Myelocytes Absolute [facility] Absolute Prolymphocytes [facility] Lymphocytes Absolute 1339 850 - 3900 cells/uL [facility] Absolute Monocytes 463 200 - 950 cells/uL [facility] Eosinophils Absolute 93 15 - 500 cells/uL [facility] Basophils Absolute 19 0 - 200 cells/uL [facility] Absolute Blasts [facility] nRBC Absolute [facility] Granulocytes % 48.3 % [facility] Band Neutrophil [facility] Metamyelocytes [facility] Myelocytes [facility] Promyelocytes [facility] Lymphocytes % 36.2 % [facility] Lymphocyte Reactive [facility] Monocytes % 12.5 % [facility] Eosinophils % 2.5 % [facility] Basophils % 0.5 % [facility] Comment: Test Performed at: [facility] [address] ??[phone] NAVID SCOTT MD Blasts [facility] nRBC [facility] Comments [facility] Comment: Test Performed at: [facility] [address] ??[phone] NAVID SCOTT MD 01/28/2023 7:03 AM CDT 01/28/2023 7:05 AM CDT Perez Cervantes MD LAB - HEMATOLOGY ORD ERABLES Performing Organization Address City/[facility] Co de Phone Number [facility] [address] [place] [address] * ERYTHROCYTE SEDIMENTATION RATE (01/28/2023 7:03 AM CDT) Pathologist [facility] Erythrocyte Sedimentation Rate Westergren 11 < OR = 30 mm/h [facility] Comment: Test Performed at: [facility] [address] ??[phone] NAVID SCOTT MD 01/28/2023 7:03 AM CDT 01/28/2023 7:05 AM CDT Perez Cervantes MD LAB - HEMATOLOGY ORD ERABLES Performing Organization Address City/[facility] Co de Phone Number [facility] [phone] [place] [address] * COMPREHENSIVE METABOLIC PANEL (01/28/2023 7:03 AM CDT) Glucose 90 65 - 99 mg/dL [facility] Comment: ? Fasting reference interval BUN 17 7 - 25 mg/dL [facility] Creatinine 0.81 0.50 - 1.03 mg/dL [facility] eGFR by Cystatin C 84 > OR = 60 mL/min/1. 73m2 [facility] Comment: The eGFR is based on the CKD-EPI 2020 equation. To calculate the new eGFR from a previous Creatinine or Cystatin C result, go to https://www.kidney.org/professionals/ kdoqi/gfr%5Fcalculator BUN/Creatinine Ratio NOT APPLICABLE 6 - (calc) [facility] Sodium 139 135 - 146 mmol/L [facility] Potassium 4.4 3.5 - 5.3 mmol/L [facility] Chloride 105 98 - 110 mmol/L [facility] CO2 27 20 - 32 mmol/L [facility] Calcium 9.3 8.6 - 10.4 mg/dL [facility] Protein Total 6.8 6.1 - 8.1 g/dL [facility] Albumin 4.2 3.6 - 5.1 g/dL [facility] Globulin Total 2.6 1.9 - 3.7 g/dL (calc) [facility] Albumin/Globuli n Ratio 1.6 1.0 - 2.5 (calc) [facility] Bilirubin Total 0.3 0.2 - 1.2 mg/dL [facility] Alkaline Phosphatase 84 37 - 153 U/L [facility] AST 21 10 - 35 U/L [facility] ALT 20 6 - 29 U/L [facility] Comment: Test Performed at: [facility] ??[phone] NAVID SCOTT MD 01/28/2023 7:03 AM CDT 01/28/2023 7:05 AM CDT Perez Cervantes MD LAB - CHEMISTRY [facility] [address] [place] [address] documented in this encounter Visit Diagnoses Not on filedocumented in this encounter Care Teams Nutrient Management Specialist Relationship Specialty Start Date End Date Jaspreet Pearl MD PCP - General 08/08/18 03/26/24 documented as of this encounter
--- OUTSIDE RECORDS SUMMARY | 2024-11-13 17:06 | XMS_ITS | Encounter Summary ---
Author Organization [facility] Address [address] [place] [address] Care Team Providers Care Inspector Aluminum Boat Name Role Phone Dayanara Plaza MD Primary Care Provider [phone] Encounter Details Date Type Department Care Team (Late Contact Info) Description 10/05/2024 Lab Requisition [facility] [address] [place] [address] Elida Reyes DO [address] [place] [address] [address] [place] [address] Social History Tobacco Use Types Packs/Day Years [...] Office Visit [facility] - Rheumatology [facility] [place] [phone] Perez Cervantes MD [facility] [facility] 2L [place] [address] documented as of this encounter Procedures Procedure Name Priority Date/Time Associated Diagnosis Comments DERMATOPATHOLOGY Routine 10/05/2024 10:3 3 AM FISCAL SERVICES MANAGER documented in this encounter Results * DERMATOPATHOLOGY (10/05/2024 10:33 AM FISCAL SERVICES MANAGER) Case Report Dermatopathology Report ? Case: [id number] ? Authorizing Provider: ??Elida Reeys, ?? Collected: ? 10/05/2024 10:33 AM ? Ordering Location: ? [facility] - ??Received: ?10/05/2024 04:35 PM ? DermPath Lab ? Pathologist: ? Kassandra Maurer MD ? Specimen: ?Skin, left upper arm ? 4 1:26 PM FISCAL SERVICES MANAGER DERMATOPATHOLOGY LABORATORY Final Diagnosis Specimen A. SKIN, left upper arm: LICHEN PLANUS-LIKE KERATOSIS (BENIGN LICHENOID KERATOSIS) (L82.1) 1:26 PM [facility] DERMATOPATHOLOGY LABORATORY Clinical History R/O NMSC 1:26 PM [facility] DERMATOPATHOLOGY LABORATORY Gross Description Specimen A: Received is one formalin filled container labeled with the patient's name and designated left upper arm. The specimen consists of a shave biopsy measuring 8x7x1 mm. Jar 0. 1:26 PM [facility] DERMATOPATHOLOGY LABORATORY Microscopic Description Specimen A. SKIN, left upper arm: The epidermis is mildly acanthotic. There is a lichenoid infiltrate with vacuolar changes of basilar keratinocytes and scattered necrotic keratinocytes. 1:26 PM [facility] DERMATOPATHOLOGY LABORATORY Disclaimer An external and internal positive and negative controls are appropriate for the histochemical, immunohistochemical and immunofluorescence stain(s) in this case (if any), except where stated explicitly. The performance characteristics of the stain(s) cited in this report were developed and its performance characteristic determined by the Dermatopathology Laboratory at [facility], directed by Dr. Robbin Dunbar. These tests need not be, and therefore are not, approved by the [place] Food and Drug Administration. The tests are used for clinical purposes. Billing Codes Specimen Charges Stain Charges 20722 1 1:26 PM FISCAL SERVICES MANAGER DERMATOPATHOLOGY LABORATORY Embedded Images 1:26 PM [facility] DERMATOPATHOLOGY LABORATORY Pathology/Cytolo gy TISSUE SPECIMEN FROM SKIN / Unknown 10/05/2024 10:33 AM FISCAL SERVICES MANAGER 10/05/2024 4:35 PM FISCAL SERVICES MANAGER Elida Reyes DO LAB - PATHOLOGY/C YTOLOGY ORDERABLES DERMATOPATHOLOGY LABORATORY [facility] - Department of Dermatology [address], [address] [phone] documented in this encounter Visit Diagnoses Not on filedocumented in this encounter Care Teams Inspector Aluminum Boat Relationship Specialty [place] [address] [address] [address] PCP - General Family Medicine 03/27/24 documented as of this encounter
--- OUTSIDE RECORDS SUMMARY | 2024-11-13 17:06 | XMS_ITS | Encounter Summary ---
Author Organization [facility] Address [address] [facility] [place] [address] Care Team Providers Care Consulting Sales Executive Name Role Phone Jaspreet Pearl MD Primary Care Provider + Reason for Visit * Reason Comments Follow-up 6 MONTH F/U Encounter Details Date Type Department Care Team (Late st Contact Info) Description 03/02/2023 2:40 PM CDT Office Visit [facility] [address] [place] [address], [place] [address] Perez Cervantes MD [address] [place] [address] [place] [address] Encounter for therapeutic drug monitoring (Primary Dx); Polyarthritis Social History Tobacco Use Types Packs/Day [...] Sign Reading Time Taken Comments Blood Pressure 118/64 03/02/2023 2:52 PM CDT Pulse 78 03/02/2023 2:52 PM CDT Temperature 36.4 ??C (97.5 ??F) 03/02/2023 2:52 PM CD T Respiratory Rate - - Oxygen Saturation 98% 03/02/2023 2:52 PM CDT Inhaled Oxygen Concentration - - Weight 75 kg (165 lb 6.4 oz) 03/02/2023 2:52 PM CDT Height 172.7 cm (5' 7.99 ) 03/02/2023 2:52 PM CD T Body Mass Index 25.15 03/02/2023 2:52 PM CDT documented in this encounter Progress Notes * Perez Cervantes MD - 03/02/2023 3:04 PM CDT (Prob #1) Polyarthritis (Abs Negative) (Prob #2) OA Hands (Labs) Recent Labs Component Name 01/28/23 0703 11/20/22 0712 09/25/22 0839 03/18/18 0735 01/07/18 0744 10/22/17 0734 08/13/17 0734 WBC 3.7* 3.8 4.1 - 4.4 4.3 3.7* RBC 4.11 4.17 4.27 - 4.14 4.33 4.31 HGB 12.5 12.5 12.8 - 12.5 13.1 13.0 HCT 38.2 38.2 39.7 - 37.8 40.0 39.4 MCV 92.9 91.6 93.0 - 91.3 92.4 91.4 MCHC 32.7 32.7 32.2 - 33.1 32.8 33.1 PLTCOUNT 212 230 259 - - - - NEUTPCT - - - - 55.7 60.3 65.4 LYMPHPCT 36.2 36.6 47.2 - - - - EOSINPCT 2.5 2.3 1.5 - - - - BASOPHILPCT 0.5 0.3 0.5 - - - - NEUTABS - - - - 2,451 2,593 2,420 - = values in this interval not displayed. ESR 11; CRP 0.18 UA WNL; CXR/Quant Gold negative 09/05 Recent Labs Component Name 01/28/23 0703 11/20/22 0712 09/25/22 0839 05/28/22 0817 05/15/22 1029 03/20/22 0720 01/22/22 0746 SODIUM 139 140 138 - 140 140 139 POTASSIUM 4.4 3.8 4.2 - 4.4 4.1 4.1 CHLORIDE 105 104 103 - 105 104 102 CO2 27 31 29 - 27 29 28 BUN 17 14 13 - 17 23 19 CREATININE 0.81 0.71 0.77 - 0.78 0.80 0.81 GLUCOSE 90 79 91 - 86 81 86 CALCIUM 9.3 10.0 9.7 - 9.8 9.3 9.9 ALT 20 31* 42* - 83* 26 25 ALKPHOS 84 89 107 - 107 96 87 AST 21 24 36* - 81* 24 25 TBIL 0.3 0.6 0.6 - 0.6 0.6 0.6 TPROT 6.8 7.3 7.2 - 7.2 7.1 7.8 EGFR - - - - 83 81 80 EGFRAFR - - - - 96 94 93 ALBUMIN 4.2 4.3 4.4 - 4.5 4.3 4.7 - = values in this interval not displayed. (Subj) Patient remains on 50 mg Enbrel SQ/week, 20 mg MTX/week, 1 mg FA/d, 1 g nabumetone bid+ other meds. Stable AM stiffness. Mild arthralgias. Plantar fasciitis bothers her. Passed out after steroid injection,No rashes or new lesions. No mucosal ulcers, or systemic complaints. Saw [facility] for to nsillitis. Viral in etiology. Rest of ROS negative. Past/Social/Family History reviewed. (Obj) BP 118/64 (BP SITE: RIGHT ARM, BP POSITION: SITTING, BP CUFF SIZE: 11) Pulse 78 Temp 97.5??F (36.4 ??C) (Temporal) Ht 1.727 m (5' 7.99 ) Wt 75 kg (165 lb 6.4 oz) SpO2 98% (Skin) No rashes or eruptions (HEENT) No mucosal ulcers. Moist membranes. No cartilage tenderness. Minimal posterior drainage. (Neck/Back) No adenopathy/thyromegaly/tenderness (general) Unremarkable (Extrem) Hns DIps/Bns PIps/PRISON prominence.. 1-3rd MCPs SfT0. 2-5th MTPs SfT0. No donta synovitis/tenderness. 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 (Plan) Continue same meds with labs q 8 weeks and yearly TB/Hep screening. May decrease MTX if continues stable. RTO in 6 months. Discussed with patient. Perez Cervantes MD, FACP, FAAP, MACR Cargo Surveyor and Pediatric Rheumatology Professor of Internal Medicine,Pediatrics, and Molecular Immunology [facility] (Ass documented in this encounter Plan of Treatment Upcoming Encounters Date Type Department Care Team (Late st Contact Info) Description 03/27/2025 1:00 PM CDT Office Visit [facility] - Rheumatology [address] [place] [address], [place] [address] Perez Cervantes MD [address] [place] [address] [place] [phone] documented as of this encounter Visit Diagnoses Diagnosis Encounter for therapeutic drug monitoring- Primary Polyarthritis Unspecified polyarthropathy or polyarthritis, site unspecified documented in this encounter Care Teams Consulting Sales Executive Relationship Specialty Start Date End Date Jaspreet Pearl MD PCP - General 08/08/18 03/26/24 documented as of this encounter
--- OUTSIDE RECORDS SUMMARY | 2024-11-13 17:06 | XMS_ITS | Encounter Summary ---
Author Organization [facility] Address [address] [facility] [place] [address] Care Team Providers Care Nurse Staff Industrial Name Role Phone Dayanara Plaza MD Primary Care Provider [phone] Encounter Details Date Type Department Care Team (Late Contact Info) Description 05/15/2024 Orders Only [facility] - Rheumatology [address] [place] [phone] Perez Cervantes MD [address] [place] [address] [place] [address] Polyarthritis ; Encounter for therapeutic drug monitoring; Encounter for [...] Office Visit [facility] - Rheumatology [address] [place] [phone] Perez Cervantes MD [address] [place] [address] Scheduled Orders Name Type Priority Associated Diagnoses Orde r Schedule C-REACTIVE PROTEIN Lab Routine Polyarthritis Encounter for therapeutic drug monitoring Encounter for long-term (current) use of medications [id number] for 5 Occurrences starting 05/15/2024 until 11/15/2024 URINALYSIS W/MICROSCOPIC REFLEX TO CULTURE Lab Routine Polyarthritis Encounter for therapeutic drug monitoring Encounter for long-term (current) use of medications E-[id number] for 5 Occurrences starting 05/15/2024 until 11/15/2024 CBC WITH DIFFERENTIAL Lab Routine Polyarthritis Encounter for therapeutic drug monitoring Encounter for long-term (current) use of medications [id number] for 5 Occurrences starting 05/15/2024 until 11/15/2024 ERYTHROCYTE SEDIMENTATION RATE Lab Routine Polyarthritis Encounter for therapeutic drug monitoring Encounter for long-term (current) use of medications E-[id number] for 5 Occurrences starting 05/15/2024 until 11/15/2024 COMPREHENSIVE METABOLIC PANEL Lab Routine Polyarthritis Encounter for therapeutic drug monitoring Encounter for long-term (current) use of medications E-[id number] for 5 Occurrences starting 05/15/2024 until 11/15/2024 documented as of this encounter Visit Diagnoses Diagnosis Polyarthritis- Primary Unspecified polyarthropathy or polyarthritis, site unspecified Encounter for therapeutic drug monitoring Encounter for long-term (current) use of medications Encounter for long-term (current) use of other medications documented in this encounter Care Teams Nurse Staff Industrial Relationship Specialty Start [place] [address] [address] PCP - General Family Medicine 03/27/24 documented as of this encounter
--- OUTSIDE RECORDS SUMMARY | 2024-11-13 17:06 | XMS_ITS | Encounter Summary ---
Author Organization [facility] Address [address] [facility] [place] [address] Care Team Providers Care Machine Assistant Name Role Phone Dayanara Plaza MD Primary Care Provider [phone] Encounter Details Date Type Department Care Team (Late st Contact Info) Description 08/30/2024 Orders Only [facility] - Rheumatology [address] [place] [phone] Perez Cervantes MD [address] [place] [address] [address] [place] [address] Social History Tobacco Use Types [...] Visit [facility]ology [address] [place] [phone] Perez Cervantes MD [address] [place] [address] [address] [place] [phone] documented as of this encounter Procedures Procedure Name Priority Date/Time Associated Diagnosis Comments CULTURE URINE REFLEXED II 08/30/2024 7:38 AM CDT URINALYSIS W/MICROSCOPIC REFLEX TO CULTURE 08/30/2024 7:38 AM CDT C-REACTIVE PROTEIN 08/30/2024 7: 38 AM CDT CULTURE URINE 08/30/2024 7:38 AM CDT ERYTHROCYTE SEDIMENTATION RATE 08/30/2024 7:38 AM CDT CBC W AUTO DIFFERENTIAL 08/30/2024 7:38 AM CDT COMPREHENSIVE METABOLIC PANEL 08/30/2024 7:38 AM CDT documented in this encounter Results * CULTURE URINE (08/30/2024 7:38 AM CDT) Pathologist [facility] Culture [facility] Comment: ??CULTURE, URINE, ROUTINE ?Micro Number: ?[id number] ??Test Status: ? Final ??Specimen Source: ?? Urine ??Specimen Quality: ??Adequate ??Result: ?No Growth REPORT COMMENT: FASTING:YES Test Performed at: [email or web address] ??[id number] NAVID SCOTT MD 08/30/2024 7:38 AM CDT 08/30/2024 7:39 AM CDT Perez Cervantes MD LAB - MICROBIOLOGY O RDERABLES [address] [address] * C-REACTIVE PROTEIN (08/30/2024 7:38 AM CDT) Pathologist [facility] C-Reactive Protein <3.0 <8.0 mg/L [facility] Comment: Test Performed at: [facility] [place] [address] [place], [place] ??[phone] NAVID SCOTT MD 08/30/2024 7:38 AM CDT 08/30/2024 7:39 AM CDT Perez Cervantes MD LAB - CHEMISTRY ORDE RABDEMARCO Performing Organization Address [facility] Co de Phone Number [address] [address] * CULTURE URINE REFLEXED II (08/30/2024 7:38 AM CDT) Reflexive Urine Culture See Below [facility] Comment: CULTURE INDICATED - RESULTS TO FOLLOW Test Performed at: [email or web address] ??[id number] NAVID SCOTT MD 08/30/2024 7:38 AM CDT 08/30/2024 7:39 AM CDT Perez Cervantes MD LAB - MICROBIOLOGY O RDERABLES Performing Organization Address [facility] Co de Phone Number [address] [address] * (ABNORMAL) URINALYSIS W/MICROSCOPIC REFLEX TO CULTURE (08/30/2024 7:38 AM CDT) Color UA DARK YELLOW YELLOW [facility] Appearance CLEAR CLEAR [facility] Specific Collins UA 1.023 1.001 - 1.035 [facility] pH UA 5.5 5.0 - 8.0 [facility] Glucose UA NEGATIVE NEGATIVE [facility] Bilirubin UA NEGATIVE NEGATIVE [facility] Ketone UA NEGATIVE NEGATIVE [facility] Blood UA NEGATIVE NEGATIVE [facility] Protein UA NEGATIVE NEGATIVE [facility] Nitrite NEGATIVE NEGATIVE [facility] Leukocyte Esterase TRACE(A) NEGATIVE [facility] WBC UA 0-5 < OR [...] elements seen were reported. Test Performed at: [email or web address] ??[phone] NAVID SCOTT MD 08/30/2024 7:38 AM CDT 08/30/2024 7:39 AM CDT Perez Cervantes MD LAB - URINALYSIS ORD ERABLES [facility] [address] [place] [address] * (ABNORMAL) CBC WITH DIFFERENTIAL (08/30/2024 7:38 AM CDT) White Blood Cell Count 5.8 3.8 - 10.8 Thousand/ uL [facility] RBC 4.01 3.80 - 5.10 Million/u L [facility] Hemoglobin 12.9 11.7 - 15.5 g/dL [facility] Hematocrit 40.1 35.0 - 45.0 % [facility] MCV 100.0 80.0 - 100.0 fL [facility] MCH 32.2 27.0 - 33.0 pg [facility] MCHC 32.2 32.0 - 36.0 g/dL [facility] Comment: For adults, a slight decrease in the calculated MCHC value (in the range of 30 to 32 g/dL) is most likely not clinically significant; however, it should be interpreted with caution in correlation with other red cell parameters and the patient's clinical condition. RDW 15.9(H) 11.0 - 15.0 % [facility] Platelet Count 197 140 - 400 Thousand/ uL [facility] MPV 10.9 7.5 - 12.5 fL [facility] Neutrophil Absolute 2941 1500 - 7800 cells/uL [facility] Absolute Bands [facility] Metamyelocytes Absolute [facility] Myelocytes Absolute [facility] Absolute Prolymphocytes [facility] Lymphocytes Absolute 2105 850 - 3900 cells/uL [facility] Absolute Monocytes 603 200 - 950 cells/uL [facility] Eosinophils Absolute 110 15 - 500 cells/uL [facility] Basophils Absolute 41 0 - 200 cells/uL [facility] Absolute Blasts [facility] nRBC Absolute [facility] Granulocytes % 50.7 % [facility] Band Neutrophil [facility] Metamyelocytes [facility] Myelocytes [facility] Promyelocytes [facility] Lymphocytes % 36.3 % [facility] Lymphocyte Reactive [facility] Monocytes % 10.4 % [facility] Eosinophils % 1.9 % [facility] Basophils % 0.7 % [facility] Comment: Test Performed at: [facility] [place] [address] [place] ??[phone] NAVID SCOTT MD Blasts [facility] nRBC [facility] Comments [facility] Comment: Test Performed at: [facility] [address] [place], [place] ??[phone] NAVID SCOTT MD 08/30/2024 7:38 AM CDT 08/30/2024 7:39 AM CDT Perez Cervantes MD LAB - HEMATOLOGY ORD ERABLES Performing Organization Address [facility] de Phone Number [facility] [address] [place] [address] * ERYTHROCYTE SEDIMENTATION RATE (08/30/2024 7:38 AM CDT) Erythrocyte Sedimentation Rate Westergren 17 < OR = 30 mm/h [facility] Comment: Test Performed at: [facility] [address] [place], [place] ??[phone] NAVID SCOTT MD 08/30/2024 7:38 AM CDT 08/30/2024 7:39 AM CDT Perez Cervantes MD LAB - HEMATOLOGY ORD ERABLES Performing Organization Address [facility] de Phone Number [facility] [phone] [place] [address] * (ABNORMAL) COMPREHENSIVE METABOLIC PANEL (08/30/2024 7:38 AM CDT) Glucose 82 65 - 99 mg/dL [facility] Comment: ? Fasting reference interval BUN 14 7 - 25 mg/dL [facility] Creatinine 0.77 0.50 - 1.05 mg/dL [facility] eGFR by Cystatin C 88 > OR = 60 mL/min/1. 73m2 [facility] BUN/Creatinine Ratio SEE NOTE: (calc) [facility] Comment: ?? Not Reported: BUN and Creatinine are within ?? reference range. ? Sodium 142 135 - 146 mmol/L [facility] Potassium 4.3 3.5 - 5.3 mmol/L [facility] Chloride 105 98 - 110 mmol/L [facility] CO2 29 20 - 32 mmol/L [facility] Calcium 9.4 8.6 - 10.4 mg/dL [facility] Protein Total 7.0 6.1 - 8.1 g/dL [facility] Albumin 4.1 3.6 - 5.1 g/dL [facility] Globulin Total 2.9 1.9 - 3.7 g/dL (calc) [facility] Albumin/Globulin Ratio 1.4 1.0 - 2.5 (calc) [facility] Bilirubin Total 0.4 0.2 - 1.2 mg/dL [facility] Alkaline Phosphatase 101 37 - 153 U/L [facility] AST 24 10 - 35 U/L [facility] ALT 31(H) 6 - 29 U/L [facility] Comment: Test Performed at: [facility] [place], [place] ??[address] NAVID SCOTT MD 08/30/2024 7:38 AM CDT 08/30/2024 7:39 AM CDT Perez Cervantes MD LAB - CHEMISTRY GERA ADVID [facility] Organization Address City/State/ZIP Co de Phone Number [facility] [address] [place] [address] documented in this encounter Visit Diagnoses Not on filedocumented in this encounter Care Teams Machine Assistant Relationship Specialty [place] [id number] [address] PCP - General Family Medicine 03/27/24 documented as of this encounter
--- OUTSIDE RECORDS SUMMARY | 2024-11-13 17:06 | XMS_ITS | Encounter Summary ---
Author Organization [facility] Address [address] [facility] [place] [address] Care Team Providers Care Power Plant Inspector Name Role Phone Dayanara Plaza MD Primary Care Provider [phone] Reason for Visit * Reason Onset Date Comments MEDICATION REFILL 07/11/2024 Encounter Details Date Type Department Care Team (Late st Contact Info) Description 07/11/2024 Refill [facility] - Rheumatology [address] [place] [address], [facility] [place] [address] Perez Cervantes MD [address] [place] [address] [place] [address] MEDICATION REFILL Social History Tobacco Use Types Packs/Day Years [...] encounter Miscellaneous Notes * Telephone Encounter - Lashae Castelan RN - 07/11/2024 11:16 AM CDT Refill Request Hans Pascual NICK: 03/27/24Sep due: NOV scheduled: 09/25/2024 LRF: 02/03/19 Qty Disp: 12 # of refills: 3 Labs: 07/04/24 Allergies: Allergies Allergen Reactions Levaquin [Levofloxacin] Nausea and/or Vomiting and Psychiatric hallucinations Pended Medication Order: Requested Prescriptions Pending Prescriptions Disp Refills Enbrel 50 MG/ML prefilled syringe 12 mL 1 Sig: INJECT 50 MG (1 SYRINGE) UNDER THE SKIN ONCE WEEKLY documented in this encounter Plan of Treatment Upcoming Encounters Date Type Department Care Team (Late st Contact Info) Description 03/27/2025 1:00 PM CDT Office Visit [facility] - Rheumatology [address] [place] [address], [facility] [place] [phone] Perez Cervantes MD [address] [place] [address] [place] [phone] documented as of this encounter Visit Diagnoses Diagnosis Polyarthritis- Primary Unspecified polyarthropathy or polyarthritis, site unspecified documented in this encounter Care Teams Power Plant Inspector Relationship Specialty [place] [address] [address] PCP - General Family Medicine 03/27/24 documented as of this encounter
--- OUTSIDE RECORDS SUMMARY | 2024-11-13 17:06 | XMS_ITS | Encounter Summary ---
Author Organization [facility] Address [address] [facility] [place] [address] Care Team Providers Care Silver Solution Mixer Name Role Phone Jaspreet Pearl MD Primary Care Provider + Encounter Details Date Type Department Care Team (Late Contact Info) Description 09/01/2022 Orders Only [facility] [address] [place] [phone] Perez Cervantes MD [address] [place] [address] [address] [place] [address] Screening-pulmonary TB ; Encounter for long-term (current) use of medications [...] Upcoming Encounters Date Type Department Care Team ([facility] Contact Info) Description 03/27/2025 1:00 PM CDT Office Visit [facility] - Rheumatology [address] [place] [phone] Perez Cervantes MD [address] [place] [address] [address] [place] [address] Scheduled Orders Name Type Priority Associated Diagnoses Orde r Schedule [facility] Lab Routine Screening-pulmonary TB Encounter for long-term (current) use of medications Ordered: 09/01/2022 documented as of this encounter Visit Diagnoses Diagnosis Screening-pulmonary TB- Primary Screening examination for pulmonary tuberculosis Encounter for long-term (current) use of medications Encounter for long-term (current) use of other medications documented in this encounter Care Teams Silver Solution Mixer Relationship Specialty Start Date End Date Jaspreet Pearl MD PCP - General 08/08/18 03/26/24 documented as of this encounter
--- OUTSIDE RECORDS SUMMARY | 2024-11-13 17:06 | XMS_ITS | Encounter Summary ---
Author Organization [facility] Address [address] [facility] [place] [address] Care Team Providers Care Shot Hole Shooter Name Role Phone Dayanara Plaza MD Primary Care Provider [phone] Encounter Details Date Type Department Care Team (Late Contact Info) Description 09/01/2024 Orders Only [facility] - Rheumatology [address] [place] [phone] Perez Cervantes MD [address] [place] [address] [place] [address] Polyarthritis; Encounter for therapeutic drug [...] Upcoming Encounters Date Type Department Care Team ([facility] Contact Info) Description 03/27/2025 1:00 PM CDT Office Visit [facility] Rheumatology [address] [place] [phone] Perez Cervantes MD [address] [place] [address] documented as of this encounter Visit Diagnoses Diagnosis Polyarthritis Unspecified polyarthropathy or polyarthritis, site unspecified Encounter for therapeutic drug monitoring Encounter for long-term (current) use of medications Encounter for long-term (current) use of other medications documented in this encounter Care Teams Shot Hole Shooter Relationship Specialty [place] [address] [place] [address] [address] PCP - General Family Medicine 03/27/24 documented as of this encounter
--- OUTSIDE RECORDS SUMMARY | 2024-11-13 17:06 | XMS_ITS | Encounter Summary ---
Author Organization [facility] Address [address] [facility] [place] [address] Care Team Providers Care Nurse Obgyn Name Role Phone Dayanara Plaza MD Primary Care Provider Reason for Visit * Reason Comments Follow-up Encounter Details Date Type Department Care Team (Latest Contact Info) Description 03/27/2024 1:40 PM CDT Office Visit [facility] - Rheumatology [address] [place] [address], [place] [address] Perez Cervantes MD [address] [place] [address] [place] [address] Polyarthritis (Primary Dx) Social History Tobacco Use Types Packs/Day Years [...] Sign Reading Time Taken Comments Blood Pressure 122/81 03/27/2024 1:42 PM CDT Pulse 71 03/27/2024 1:42 PM CDT Temperature 36.7 ??C (98 ??F) 03/27/2024 1:42 PM CDT Respiratory Rate - - Oxygen Saturation 98% 03/27/2024 1:42 PM CDT Inhaled Oxygen Concentration - - Weight 79 kg (174 lb 3.2 oz) 03/27/2024 1:42 PM CDT Height 172.7 cm (5' 8 ) 03/27/2024 1:42 PM CDT Body Mass Index 26.49 03/27/2024 1:42 PM CDT documented in this encounter Progress Notes * Perez Cervantes MD - 03/27/2024 1:47 PM CDT (Prob #1) Polyarthritis (Abs Negative) (No erosions/JSN) (Prob #2) OA Hnds (Labs) Recent Labs Component Name 02/14/24 0733 12/20/23 0723 09/30/23 0732 03/18/18 0735 01/07/18 0744 10/22/17 0734 08/13/17 0734 WBC 4.7 3.8 5.6 - 4.4 4.3 3.7* RBC 4.02 4.34 4.20 - 4.14 4.33 4.31 HGB 12.7 12.7 12.6 - 12.5 13.1 13.0 HCT 37.8 40.0 38.8 - 37.8 40.0 39.4 MCV 94.0 92.2 92.4 - 91.3 92.4 91.4 MCHC 33.6 31.8* 32.5 - 33.1 32.8 33.1 PLTCOUNT 204 218 236 - - - - NEUTPCT - - - - 55.7 60.3 65.4 LYMPHPCT 40.3 43.5 38.3 - - - - EOSINPCT 2.1 5.6 2.1 - - - - BASOPHILPCT 0.4 0.5 0.4 - - - - NEUTABS - - - - 2,451 2,593 2,420 - = values in this interval not displayed. ESR 9; CRP 0.3 UA WNL; Recent Labs Component Name 02/14/24 0733 12/20/23 0723 10/11/23 0739 05/28/22 0817 05/15/22 1029 03/20/22 0720 01/22/22 0746 03/18/18 0735 01/07/18 0744 10/22/17 0734 08/13/17 0734 SODIUM 139 141 140 - 140 140 139 - - - - NA - - - - - - - - 140 142 140 POTASSIUM 4.3 3.9 4.6 - 4.4 4.1 4.1 - - - - CHLORIDE 105 106 104 - 105 104 102 - - - - CO2 29 26 29 - 27 29 28 - 28 27 22 BUN 17 15 15 - 17 23 19 - 16 18 16 CREATININE 0.77 0.78 0.74 - 0.78 0.80 0.81 - 0.82 0.83 0.81 GLUCOSE 89 77 83 - 86 81 86 - - - - CALCIUM 9.7 9.5 9.2 - 9.8 9.3 9.9 - 9.5 9.8 9.6 ALT 15 17 30* - 83* 26 25 - 22 16 22 ALKPHOS 89 103 121 - 107 96 87 - 100 84 101 AST 16 18 21 - 81* 24 25 - 24 21 25 TBIL 0.3 0.3 0.3 - 0.6 0.6 0.6 - - - - TPROT 7.1 6.7 6.7 - 7.2 7.1 7.8 - - - - EGFR - - - - 83 81 80 - - - - EGFRAFR - - - - 96 94 93 - - - - ALBUMIN 4.3 4.0 3.9 - 4.5 4.3 4.7 - - - - - = values in this interval not displayed. CXR/Quant Gold/Hep B/C negative in September. (Subj) Patient remains on 50 mg Enbrel SQ/week, 15 mg MTX/week, 1 mg FA/d, 1 G Nabumetone bid+ other meds. Doing well. No AM stiffness. No more abdominal pain or LBP. No skin rashes, mucosal ulcers, or systemic complaints. Plantar fasciities surgery in August. Rest of ROS negative. Past/Social/Family History reviewed. (Obj) BP 122/81 Pulse 71 Temp 98 ??F (36.7 ??C) (Oral) Ht 1.727 m (5' 8 ) Wt 79 kg (174 lb 3.2 oz) SpO2 98% (Skin) No rashes or eruptions. (HEENT) No mucosal ulcers. Moist membranes. No cartilage tenderness (Neck/Back) No adenopathy/thyromegaly/tenderness (General) Unremarkable (Extrem) HNs DIPs/BNs PIPs/SNF prominence; 1-3rd MCPs SfT0' 2-5th MTPs SfT0; No donta synovitis/enthesitis. 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 Today, Xray hands/feet. Advise if any change in parameters. RTO in 6 months. Discussed with patient and her . Perez Cervantes MD, FACP, FAAP, MACR Converter Operator and Pediatric Rheumatology Professor of Internal Medicine,Pediatrics, and Molecular Immunology [facility] documented in this encounter Plan of Treatment Upcoming Encounters Date Type Department Care Team (Late st Contact Info) Description 03/27/2025 1:00 PM CDT Office Visit [facility] - Rheumatology [address] [place] [address], [place] [phone] Perez Cervantes MD [address] [place] [address] [place] [address] documented as of this encounter Results * XR HAND RIGHT 2VW (03/27/2024 2:31 PM CDT) Anatomical Region Laterality Modality Wrist / Hand Radiographic Corin ging 03/27/2024 2:44 PM CDT Impressions 03/27/2024 2:57 PM CDT IMPRESSION: No significant arthritis on the above studies. Report dictated by Td Burton MD, (professor of radiology). I, Dinh Toledo MD have personally reviewed and interpreted this examination/study. > Interpreting Provider: Dinh Toledo MD on 03/27/2024 2:57 PM Narrative 03/27/2024 2:57 PM CDT PROCEDURE: ??XR HAND RIGHT 2VW, XR HAND LEFT 2VW, XR FOOT LEFT 2VW, XR FOOT RIGHT 2VW, DATE/TIME OF EXAM: ??03/27/2024 2:31 PM, LOCATION ??[facility] INDICATION: M13.0: Polyarthritis COMPARISON: Right and left [...] DATE/TIME OF EXAM: 03/27/2024 2:31 PM, LOCATION [facility] INDICATION: M13.0: Polyarthritis COMPARISON: Right and left [...] Report dictated by Td Burton MD, MD (professor of radiology). Dinh Osorio MD have personally reviewed and interpreted this examination/study. > Interpreting Provider: Dinh Toledo MD on 03/27/2024 2:57 PM Perez Cervantes MD DIAGNOSTIC IMAGING O RDERABLES * XR HAND LEFT 2VW (03/27/2024 2:31 PM CDT) Anatomical Region Laterality Modality Wrist / Hand Radiographic Corin ging 03/27/2024 2:44 PM CDT Impressions 03/27/2024 2:57 PM CDT IMPRESSION: No significant arthritis on the above studies. Report dictated by Td Burton MD, MD (professor of radiology). Dinh Osorio MD have personally reviewed and interpreted this examination/study. > Interpreting Provider: Dinh Toledo MD on 03/27/2024 2:57 PM Narrative 03/27/2024 2:57 PM CDT PROCEDURE: ??XR HAND RIGHT 2VW, XR HAND LEFT 2VW, XR FOOT LEFT 2VW, XR FOOT RIGHT 2VW, DATE/TIME OF EXAM: ??03/27/2024 2:31 PM, LOCATION ??[facility] INDICATION: M13.0: Polyarthritis COMPARISON: Right and left [...] DATE/TIME OF EXAM: 03/27/2024 2:31 PM, LOCATION [facility] INDICATION: M13.0: Polyarthritis COMPARISON: Right and left [...] Report dictated by Td Burton MD, MD (professor of radiology). Dinh Osorio MD have personally reviewed and [...] Report dictated by Td Burton MD, MD (professor of radiology). Dinh Osorio MD have personally reviewed and interpreted this examination/study. > Interpreting Provider: Dinh Toledo MD on 03/27/2024 2:57 PM Narrative 03/27/2024 2:57 PM CDT PROCEDURE: ??XR HAND RIGHT 2VW, XR HAND LEFT 2VW, XR FOOT LEFT 2VW, XR FOOT RIGHT 2VW, DATE/TIME OF EXAM: ??03/27/2024 2:31 PM, LOCATION ??[facility] INDICATION: M13.0: Polyarthritis COMPARISON: Right and left [...] DATE/TIME OF EXAM: 03/27/2024 2:31 PM, LOCATION [facility] INDICATION: M13.0: Polyarthritis COMPARISON: Right and left [...] Report dictated by Td Burton MD, MD (professor of radiology). I, Dinh Toledo MD have personally reviewed [...] Report dictated by Td Burton MD, MD (professor of radiology). I, Dinh Toledo MD have personally reviewed and interpreted this examination/study. > Interpreting Provider: Dinh Toledo MD on 03/27/2024 2:57 PM Narrative 03/27/2024 2:57 PM CDT PROCEDURE: ??XR HAND RIGHT 2VW, XR HAND LEFT 2VW, XR FOOT LEFT 2VW, XR FOOT RIGHT 2VW, DATE/TIME OF EXAM: ??03/27/2024 2:31 PM, LOCATION ??[facility] INDICATION: M13.0: Polyarthritis COMPARISON: Right and left [...] DATE/TIME OF EXAM: 03/27/2024 2:31 PM, LOCATION [facility] INDICATION: M13.0: Polyarthritis COMPARISON: Right and left [...] studies. Report dictated by Td Burton MD, (professor of radiology). I, Dinh Toledo MD have personally reviewed and interpreted this examination/study. > Interpreting Provider: Dinh Toledo MD on 03/27/2024 2:57 PM Perez Cervantes MD DIAGNOSTIC IMAGING O RDERABLES documented in this encounter Visit Diagnoses Diagnosis Polyarthritis- Primary Unspecified polyarthropathy or polyarthritis, site unspecified Polyarthritis Unspecified polyarthropathy or polyarthritis, site unspecified documented in this encounter Care Teams Nurse Obgyn Relationship Specialty [place] [id number] [address] PCP - General Family Medicine 03/27/24 documented as of this encounter
--- OUTSIDE RECORDS SUMMARY | 2024-11-13 17:06 | XMS_ITS | Encounter Summary ---
Author Organization [facility] Address [address] [place] [address] Care Team Providers Care Straightening Press Operator Name Role Phone Jaspreet Pearl MD Primary Care Provider + Encounter Details Date Type Department Care Team (Late Contact Info) Description 09/30/2023 Orders Only [facility] [address] [place] [address] [phone] Perez Cervantes MD [address] [place] [address] [address] [place] [address] Social History Tobacco Use Types [...] Office Visit [facility] - Rheumatology [address] [place] [address] [phone] Perez Cervantes MD [address] [place] [address] [address] [place] [phone] documented as of this encounter Procedures Procedure Name Priority Date/Time Associated Diagnosis Comments QUANTIFERON-TB GOLD PLUS 1-TUBE 09/30/2023 7:32 AM FLOUR BROKER URINALYSIS W/MICROSCOPIC NO CULTURE 09/30/2023 7:32 AM [facility] BROKER CULTURE URINE 09/30/2023 7:32 AM FL[facility] BROKER documented in this encounter Results * CULTURE URINE (09/30/2023 7:32 AM FLOUR BROKER) Pathologist [facility] Culture [facility] Comment: ??CULTURE, URINE, ROUTINE ?Micro Number: ?[id number] ??Test Status: ? Final ??Specimen Source: ?? Urine ??Specimen Quality: ??Adequate ??Result: ?No Growth Test Performed at: [facility] ??[id number] NAVID SCOTT MD 09/30/2023 7:32 AM FLOUR BROKER 09/30/2023 7:36 AM FL[facility] BROKER Perez Cervantes MD LAB - MICROBIOLOGY O RDERABLES [address] [address] * QUANTIFERON-TB GOLD PLUS 1-TUBE (09/30/2023 7:32 AM FLOUR BROKER) Pathologist [facility] QuantiFERON TB Gold Plus NEGATIVE NEGATIVE [facility] Comment: Negative test result. M. tuberculosis complex infection unlikely. NIL 0.03 IU/mL [facility] MITOGEN MINUS NIL RESULT >10.00 IU/mL [facility] TB1-NIL 0.01 IU/mL [facility] TB2-NIL 0.00 IU/mL [facility] Comment: The Nil tube value [...] T-lymphocytes. For additional information, please refer to https://education.[employer]/faq/XUN892 (This link is being provided for informational/ educational purposes only.) Test Performed at: [facility] [id number] [place], [place] ??[id number] NAVID SCOTT MD 09/30/2023 7:32 AM FLOUR BROKER 09/30/2023 7:36 AM FL[facility] BROKER Perez Cervantes MD LAB - CHEMISTRY ORDE RABDEMARCO Performing Organization Address [facility] de Phone Number [facility] [phone] [place] [address] * URINALYSIS W/MICROSCOPIC NO CULTURE (09/30/2023 7:32 AM FLOUR BROKER) Color UA YELLOW YELLOW [facility] Appearance CLEAR CLEAR [facility] Specific [place] UA 1.015 1.001 - 1.035 [facility] pH UA 7.5 5.0 - 8.0 [facility] Glucose UA NEGATIVE NEGATIVE [facility] Bilirubin UA NEGATIVE NEGATIVE [facility] Ketone UA NEGATIVE NEGATIVE [facility] Blood UA NEGATIVE NEGATIVE [facility] Protein UA NEGATIVE NEGATIVE [facility] Nitrite UA NEGATIVE NEGATIVE [facility] Leukocyte UA NEGATIVE NEGATIVE [facility] WBC UA NONE SEEN < OR = 5 /HPF [facility] RBC UA NONE SEEN < OR = 2 /HPF [facility] Epithelial Cell UA NONE SEEN < OR = 5 /HPF [facility] Bacteria UA NONE SEEN NONE SEEN /HPF [facility] Hyaline Casts NONE SEEN NONE SEEN /LPF [facility] Comment: Test Performed at: [facility] [id number] [place], [place] ??[address] NAVID SCOTT MD 09/30/2023 7:32 AM FL[facility] BROKER 09/30/2023 7:36 AM FL[facility] BROKER Perez Cervantes MD LAB - URINALYSIS ORD ERABLES Performing Organization Address [facility] Co de Phone Number [facility] [phone] [place] [address] documented in this encounter Visit Diagnoses Not on filedocumented in this encounter Care Teams Straightening Press Operator Relationship Specialty Start Date End Date Jaspreet Pearl MD PCP - General 08/08/18 03/26/24 documented as of this encounter
--- OUTSIDE RECORDS SUMMARY | 2024-11-13 17:06 | XMS_ITS | Patient Health Summary ---
Author Organization [facility] Address [address] [place] [address] Care Team Providers Care Human Factors Advisor Lead Name Role Phone Dayanara Plaza MD Primary Care Provider [phone] Note from [facility],non-owned Affiliates and Associated Physician Practices is amultiple site organization consisting of ambulatory clinics and hospital sitesin [place], [place], [place] and [place]. This disclosure is being madepursuant to the Care Everywhere program and may not contain all information available regarding this patient. Last updated 18.[facility] Allergies * Levofloxacin(Nausea and/or Vomiting,Psychiatric) -Medium Criticality Medications * Be aware that medications may not be up to date on this document. Alwaysverify current medications with the patient. * dicyclomine (BENTYL) 20 MG tablet Take 1 (one) tablet by mouth as needed * Multiple Vitamin (MULTI VITAMIN PO) Take 1 tablet by mouth once daily * Azelastine HCl 137 MCG/SPRAY SOLN [place] 2 sprays into the nose 2 times daily * polyethylene glycol 3350 (MIRALAX) 17 GM/SCOOP powder Take 17 (seventeen) g by mouth every 24 hours as needed * methotrexate 2.5 MG tablet(Started 01/04/2023) TAKE 8 TABLETS EVERY 7 DAYS 3 refills by 01/04/2024 * nabumetone (Relafen) 500 MG tablet(Started 01/04/2023) TAKE 2 TABLETS TWICE A DAY 3 refills by 01/04/2024 * fexofenadine (Arabella) 180 MG tablet Take 1 (one) tablet by mouth every 24 hours * valACYclovir (Valtrex) 1 GM tablet(Started 03/04/2024) Take 1 (one) tablet by mouth once daily * traZODone (Desyrel) 100 MG tablet(Started 02/28/2024) Take 1 (one) tablet by mouth once daily * folic acid (Folvite) 1 MG tablet(Started 07/21/2024) Take 1 (one) tablet by mouth once daily 3 refills by 07/21/2025 * estradiol (Estrace) 0.1 MG/GM vaginal cream(Started 10/26/2023) Insert into the vagina once daily * Enbrel 50 MG/ML prefilled syringe(Started 10/19/2024) Inject 50 (fifty) mg subcutaneously every 7 days 3 refills by 10/19/2025 Ended Medications* Enbrel 50 MG/ML prefilled syringe(Started 07/11/2024) (Discontinued) Inject 50 (fifty) mg subcutaneously every 7 days * Enbrel 50 MG/ML prefilled syringe(Started 10/16/2024)(Discontinued) Inject 50 (fifty) mg subcutaneously every 7 days 3 refills by 10/16/2025 Active Problems Problem Noted Date Diagnosed Date Polyarthritis 06/01/2018 Encounter for therapeutic drug monitoring 2017 Immunizations * FLU VACCINE TRI IIV3 SPLIT PF IM (FLUVIRIN)(Given 08/22/2020) * INFLUENZA(Given 08/22/2020, 08/02/2019, 08/29/2017, 09/05/2015, 09/02/2013) * INFLUENZA VACCINE, QUADR. (FLUZONE; FLULAVAL; FLUARIX; AFLURIA QUADRIVALENT; 6MO+), 0.5 ML (IIV4)(Given 08/31/2023, 08/08/2018) * PNEUMOCOCCAL PPSV23(Given 08/16/2016) * iNFLUENZA VACCINE, RECOM-PACHECO, QUADR. (FLUBLOCK QUADRIVALENT; 18Y+) (RIV4)(Given 09/01/2022) Social History Tobacco Use Types Packs/Day Years [...] Comments Blood Pressure 118/78 09/25/2024 1:24 PM DEDICATED OWNER OPERATOR Pulse 69 09/25/2024 1:24 PM DEDICATED OWNER OPERATOR Temperature 36.6 ??C (97.9 ??F) 09/25/2024 1:24 PM CS T Respiratory Rate 16 06/09/2021 2:48 PM CDT Oxygen Saturation 98% 09/25/2024 1:24 PM DEDICATED OWNER OPERATOR Inhaled Oxygen Concentration - - Weight 77.8 kg (171 lb 9.6 oz) 09/25/2024 1:24 P M DEDICATED OWNER OPERATOR Height 172.7 cm (5' 8 ) 09/25/2024 1:24 PM DEDICATED OWNER OPERATOR Body Mass Index 26.09 09/25/2024 1:24 PM DEDICATED OWNER OPERATOR Procedures * QUANTIFERON-TB GOLD PLUS 1-TUBE(Performed 10/25/2024) * HEPATITIS C AB W/RFLX TO HCV RNA QN PCR(Performed 10/25/2024) Performed for Encounter for therapeutic drug monitoring * HEPATITIS B SURFACE ANTIGEN W RFLX CONFIRMATION(Performed 10/25/2024) Performed for Encounter for therapeutic drug monitoring * HEPATITIS B SURFACE ANTIBODY(Performed 10/25/2024) Performed for Encounter for therapeutic drug monitoring * HEPATITIS B CORE ANTIBODY TOTAL(Performed 10/25/2024) Performed for Encounter for therapeutic drug monitoring * URINALYSIS W/MICROSCOPIC REFLEX TO CULTURE(Performed 10/25/2024) Performed for Polyarthritis, Encounter for therapeutic drug monitoring * ERYTHROCYTE SEDIMENTATION RATE(Performed 10/25/2024) Performed for Polyarthritis, Encounter for therapeutic drug monitoring * C-REACTIVE PROTEIN(Performed 10/25/2024) Performed for Polyarthritis, Encounter for therapeutic drug monitoring * COMPREHENSIVE METABOLIC PANEL(Performed 10/25/2024) Performed for Polyarthritis, Encounter for therapeutic drug monitoring * CBC W AUTO DIFFERENTIAL(Performed 10/25/2024) Performed for Polyarthritis, Encounter for therapeutic drug monitoring * CULTURE URINE(Performed 10/25/2024) * CULTURE URINE REFLEXED II(Performed 10/25/2024) * DERMATOPATHOLOGY(Performed 10/05/2024) * XR CHEST 2VW(Performed 09/25/2024) Performed for Encounter for therapeutic drug monitoring * C-REACTIVE PROTEIN(Performed 08/30/2024) * URINALYSIS W/MICROSCOPIC REFLEX TO CULTURE(Performed 08/30/2024) * CBC W AUTO DIFFERENTIAL(Performed 08/30/2024) * ERYTHROCYTE SEDIMENTATION RATE(Performed 08/30/2024) * COMPREHENSIVE METABOLIC PANEL(Performed 08/30/2024) * CULTURE URINE(Performed 08/30/2024) * CULTURE URINE REFLEXED II(Performed 08/30/2024) * C-REACTIVE PROTEIN(Performed 07/04/2024) * URINALYSIS W/MICROSCOPIC REFLEX TO CULTURE(Performed 07/04/2024) * CBC W AUTO DIFFERENTIAL(Performed 07/04/2024) * ERYTHROCYTE SEDIMENTATION RATE(Performed 07/04/2024) * COMPREHENSIVE METABOLIC PANEL(Performed 07/04/2024) * CULTURE URINE(Performed 07/04/2024) * CULTURE URINE REFLEXED II(Performed 07/04/2024) * XR HAND LEFT 2VW(Performed 03/27/2024) Performed for Polyarthritis * XR FOOT LEFT 2VW(Performed 03/27/2024) Performed for Polyarthritis * XR FOOT RIGHT 2VW(Performed 03/27/2024) Performed for Polyarthritis * XR HAND RIGHT 2VW(Performed 03/27/2024) Performed for Polyarthritis * C-REACTIVE PROTEIN(Performed 02/14/2024) * URINALYSIS W/MICROSCOPIC REFLEX TO CULTURE(Performed 02/14/2024) * CBC W AUTO DIFFERENTIAL(Performed 02/14/2024) * ERYTHROCYTE SEDIMENTATION RATE(Performed 02/14/2024) * COMPREHENSIVE METABOLIC PANEL(Performed 02/14/2024) * CULTURE URINE REFLEXED III(Performed 02/14/2024) * C-REACTIVE PROTEIN(Performed 12/20/2023) * URINALYSIS W/MICROSCOPIC REFLEX TO CULTURE(Performed 12/20/2023) * CBC W AUTO DIFFERENTIAL(Performed 12/20/2023) * ERYTHROCYTE SEDIMENTATION RATE(Performed 12/20/2023) * COMPREHENSIVE METABOLIC PANEL(Performed 12/20/2023) * CULTURE URINE REFLEXED III(Performed 12/20/2023) * COMPREHENSIVE METABOLIC PANEL(Performed 10/11/2023) Performed for Encounter for therapeutic drug monitoring * QUANTIFERON-TB GOLD PLUS 1-TUBE(Performed 09/30/2023) * URINALYSIS W/MICROSCOPIC NO CULTURE(Performed 09/30/2023) * ERYTHROCYTE SEDIMENTATION RATE(Performed 09/30/2023) Performed for Encounter for therapeutic drug monitoring, Polyarthritis * C-REACTIVE PROTEIN(Performed 09/30/2023) Performed for Encounter for therapeutic drug monitoring, Polyarthritis * COMPREHENSIVE METABOLIC PANEL(Performed 09/30/2023) Performed for Encounter for therapeutic drug monitoring, Polyarthritis * CBC W AUTO DIFFERENTIAL(Performed 09/30/2023) Performed for Encounter for therapeutic drug monitoring, Polyarthritis * HEPATITIS C AB W/RFLX TO HCV RNA QN PCR(Performed 09/30/2023) Performed for Encounter for long-term (current) use of medications * HEPATITIS B SURFACE ANTIGEN W RFLX CONFIRMATION(Performed 09/30/2023) Performed for Encounter for long-term (current) use of medications * HEPATITIS B SURFACE ANTIBODY(Performed 09/30/2023) Performed for Encounter for long-term (current) use of medications * HEPATITIS B CORE ANTIBODY TOTAL(Performed 09/30/2023) Performed for Encounter for long-term (current) use of medications * CULTURE URINE(Performed 09/30/2023) * CULTURE URINE(Performed 08/31/2023) Performed for Pyuria * XR CHEST 2VW(Performed 08/31/2023) Performed for Encounter for long-term (current) use of medications * URINALYSIS W/MICROSCOPIC REFLEX TO CULTURE(Performed 08/02/2023) Performed for Encounter for therapeutic drug monitoring, Polyarthritis * ERYTHROCYTE SEDIMENTATION RATE(Performed 08/02/2023) Performed for Encounter for therapeutic drug monitoring, Polyarthritis * C-REACTIVE PROTEIN(Performed 08/02/2023) Performed for Encounter for therapeutic drug monitoring, Polyarthritis * COMPREHENSIVE METABOLIC PANEL(Performed 08/02/2023) Performed for Encounter for therapeutic drug monitoring, Polyarthritis * CBC W AUTO DIFFERENTIAL(Performed 08/02/2023) Performed for Encounter for therapeutic drug monitoring, Polyarthritis * CULTURE URINE(Performed 08/02/2023) * CULTURE URINE REFLEXED II(Performed 08/02/2023) * URINALYSIS W/MICROSCOPIC REFLEX TO CULTURE(Performed 06/07/2023) Performed for Encounter for therapeutic drug monitoring, Polyarthritis * ERYTHROCYTE SEDIMENTATION RATE(Performed 06/07/2023) Performed for Encounter for therapeutic drug monitoring, Polyarthritis * C-REACTIVE PROTEIN(Performed 06/07/2023) Performed for Encounter for therapeutic drug monitoring, Polyarthritis * COMPREHENSIVE METABOLIC PANEL(Performed 06/07/2023) Performed for Encounter for therapeutic drug monitoring, Polyarthritis * CBC W AUTO DIFFERENTIAL(Performed 06/07/2023) Performed for Encounter for therapeutic drug monitoring, Polyarthritis * CULTURE URINE(Performed 06/07/2023) * CULTURE URINE REFLEXED II(Performed 06/07/2023) * URINALYSIS W/MICROSCOPIC REFLEX TO CULTURE(Performed 04/15/2023) Performed for Encounter for therapeutic drug monitoring, Polyarthritis * ERYTHROCYTE SEDIMENTATION RATE(Performed 04/15/2023) Performed for Encounter for therapeutic drug monitoring, Polyarthritis * C-REACTIVE PROTEIN(Performed 04/15/2023) Performed for Encounter for therapeutic drug monitoring, Polyarthritis * COMPREHENSIVE METABOLIC PANEL(Performed 04/15/2023) Performed for Encounter for therapeutic drug monitoring, Polyarthritis * CBC W AUTO DIFFERENTIAL(Performed 04/15/2023) Performed for Encounter for therapeutic drug monitoring, Polyarthritis * CULTURE URINE REFLEXED III(Performed 04/15/2023) * C-REACTIVE PROTEIN(Performed 01/28/2023) * URINALYSIS W/MICROSCOPIC REFLEX TO CULTURE(Performed 01/28/2023) * CBC W AUTO DIFFERENTIAL(Performed 01/28/2023) * ERYTHROCYTE SEDIMENTATION RATE(Performed 01/28/2023) * COMPREHENSIVE METABOLIC PANEL(Performed 01/28/2023) * CULTURE URINE REFLEXED III(Performed 01/28/2023) * URINALYSIS W/MICROSCOPIC REFLEX TO CULTURE(Performed 11/20/2022) Performed for Encounter for therapeutic drug monitoring, Polyarthritis * ERYTHROCYTE SEDIMENTATION RATE(Performed 11/20/2022) Performed for Encounter for therapeutic drug monitoring, Polyarthritis * C-REACTIVE PROTEIN(Performed 11/20/2022) Performed for Encounter for therapeutic drug monitoring, Polyarthritis * COMPREHENSIVE METABOLIC PANEL(Performed 11/20/2022) Performed for Encounter for therapeutic drug monitoring, Polyarthritis * CBC W AUTO DIFFERENTIAL(Performed 11/20/2022) Performed for Encounter for therapeutic drug monitoring, Polyarthritis * CULTURE URINE(Performed 11/20/2022) * CULTURE URINE REFLEXED II(Performed 11/20/2022) * QUANTIFERON-TB GOLD PLUS 1-TUBE(Performed 09/25/2022) * URINALYSIS W/MICROSCOPIC REFLEX TO CULTURE(Performed 09/25/2022) Performed for Encounter for therapeutic drug monitoring, Polyarthritis * ERYTHROCYTE SEDIMENTATION RATE(Performed 09/25/2022) Performed for Encounter for therapeutic drug monitoring, Polyarthritis * C-REACTIVE PROTEIN(Performed 09/25/2022) Performed for Encounter for therapeutic drug monitoring, Polyarthritis * COMPREHENSIVE METABOLIC PANEL(Performed 09/25/2022) Performed for Encounter for therapeutic drug monitoring, Polyarthritis * CBC W AUTO DIFFERENTIAL(Performed 09/25/2022) Performed for Encounter for therapeutic drug monitoring, Polyarthritis * CULTURE URINE(Performed 09/25/2022) * CULTURE URINE REFLEXED II(Performed 09/25/2022) * XR CHEST 2VW(Performed 09/01/2022) Performed for Encounter for therapeutic drug monitoring * C-REACTIVE PROTEIN(Performed 07/27/2022) * URINALYSIS W/MICROSCOPIC REFLEX TO CULTURE(Performed 07/27/2022) * CBC W AUTO DIFFERENTIAL(Performed 07/27/2022) * ERYTHROCYTE SEDIMENTATION RATE(Performed 07/27/2022) * COMPREHENSIVE METABOLIC PANEL(Performed 07/27/2022) * CULTURE URINE(Performed 07/27/2022) * CULTURE URINE REFLEXED II(Performed 07/27/2022) * COMPREHENSIVE METABOLIC PANEL(Performed 05/28/2022) Performed for Encounter for therapeutic drug monitoring * C-REACTIVE PROTEIN(Performed 05/15/2022) * CBC W AUTO DIFFERENTIAL(Performed 05/15/2022) * ERYTHROCYTE SEDIMENTATION RATE(Performed 05/15/2022) * URINALYSIS W/MICROSCOPIC REFLEX TO CULTURE(Performed 05/15/2022) * COMPREHENSIVE METABOLIC PANEL(Performed 05/15/2022) * CULTURE URINE(Performed 05/15/2022) * CULTURE URINE REFLEXED(Performed 05/15/2022) * C-REACTIVE PROTEIN(Performed 03/20/2022) * CBC W AUTO DIFFERENTIAL(Performed 03/20/2022) * URINALYSIS W/MICROSCOPIC REFLEX TO CULTURE(Performed 03/20/2022) * ERYTHROCYTE SEDIMENTATION RATE(Performed 03/20/2022) * COMPREHENSIVE METABOLIC PANEL(Performed 03/20/2022) * CULTURE URINE(Performed 03/20/2022) * CULTURE URINE REFLEXED(Performed 03/20/2022) * C-REACTIVE PROTEIN(Performed 01/22/2022) * CBC W AUTO DIFFERENTIAL(Performed 01/22/2022) * ERYTHROCYTE SEDIMENTATION RATE(Performed 01/22/2022) * URINALYSIS W/MICROSCOPIC REFLEX TO CULTURE(Performed 01/22/2022) * COMPREHENSIVE METABOLIC PANEL(Performed 01/22/2022) * CULTURE URINE(Performed 01/22/2022) * CULTURE URINE REFLEXED(Performed 01/22/2022) * C-REACTIVE PROTEIN(Performed 10/31/2021) * CBC W AUTO DIFFERENTIAL(Performed 10/31/2021) * URINALYSIS W/MICROSCOPIC REFLEX TO CULTURE(Performed 10/31/2021) * ERYTHROCYTE SEDIMENTATION RATE(Performed 10/31/2021) * COMPREHENSIVE METABOLIC PANEL(Performed 10/31/2021) * CULTURE URINE(Performed 10/31/2021) * CULTURE URINE REFLEXED II(Performed 10/31/2021) * C-REACTIVE PROTEIN(Performed 08/29/2021) * CBC W AUTO DIFFERENTIAL(Performed 08/29/2021) * ERYTHROCYTE SEDIMENTATION RATE(Performed 08/29/2021) * URINALYSIS W/MICROSCOPIC REFLEX TO CULTURE(Performed 08/29/2021) * COMPREHENSIVE METABOLIC PANEL(Performed 08/29/2021) * CULTURE URINE REFLEXED III(Performed 08/29/2021) * DERMATOPATHOLOGY(Performed 06/23/2021) * QUANTIFERON-TB GOLD PLUS 1-TUBE(Performed 06/20/2021) * C-REACTIVE PROTEIN(Performed 06/20/2021) * CBC W AUTO DIFFERENTIAL(Performed 06/20/2021) * ERYTHROCYTE SEDIMENTATION RATE(Performed 06/20/2021) * URINALYSIS W/MICROSCOPIC REFLEX TO CULTURE(Performed 06/20/2021) * COMPREHENSIVE METABOLIC PANEL(Performed 06/20/2021) * SARS-COV-2 (COVID-19) ANTIBODY IGG(Performed 06/20/2021) Performed for Encounter for therapeutic drug monitoring * CULTURE URINE(Performed 06/20/2021) * CULTURE URINE REFLEXED II(Performed 06/20/2021) * XR CHEST 2VW(Performed 06/09/2021) Performed for Encounter for therapeutic drug monitoring * C-REACTIVE PROTEIN(Performed 05/02/2021) * CBC W AUTO DIFFERENTIAL(Performed 05/02/2021) * ERYTHROCYTE SEDIMENTATION RATE(Performed 05/02/2021) * URINALYSIS W/MICROSCOPIC REFLEX TO CULTURE(Performed 05/02/2021) * COMPREHENSIVE METABOLIC PANEL(Performed 05/02/2021) * CULTURE URINE REFLEXED I(Performed 05/02/2021) * C-REACTIVE PROTEIN(Performed 03/03/2021) * CBC W AUTO DIFFERENTIAL(Performed 03/03/2021) * URINALYSIS W/MICROSCOPIC REFLEX TO CULTURE(Performed 03/03/2021) * ERYTHROCYTE SEDIMENTATION RATE(Performed 03/03/2021) * COMPREHENSIVE METABOLIC PANEL(Performed 03/03/2021) Performed for Encounter for therapeutic drug monitoring * CULTURE URINE REFLEXED I(Performed 03/03/2021) * URINALYSIS W/MICROSCOPIC REFLEX TO CULTURE(Performed 02/21/2021) Performed for Polyarthritis, Encounter for therapeutic drug monitoring * C-REACTIVE PROTEIN(Performed 02/21/2021) Performed for Polyarthritis, Encounter for therapeutic drug monitoring * ERYTHROCYTE SEDIMENTATION RATE(Performed 02/21/2021) Performed for Polyarthritis, Encounter for therapeutic drug monitoring * COMPREHENSIVE METABOLIC PANEL(Performed 02/21/2021) Performed for Polyarthritis, Encounter for therapeutic drug monitoring * CBC W AUTO DIFFERENTIAL(Performed 02/21/2021) Performed for Polyarthritis, Encounter for therapeutic drug monitoring * CULTURE URINE(Performed 02/21/2021) * CULTURE URINE REFLEXED(Performed 02/21/2021) * URINALYSIS W/MICROSCOPIC REFLEX TO CULTURE(Performed 12/20/2020) Performed for Polyarthritis, Encounter for therapeutic drug monitoring * C-REACTIVE PROTEIN(Performed 12/20/2020) Performed for Polyarthritis, Encounter for therapeutic drug monitoring * ERYTHROCYTE SEDIMENTATION RATE(Performed 12/20/2020) Performed for Polyarthritis, Encounter for therapeutic drug monitoring * COMPREHENSIVE METABOLIC PANEL(Performed 12/20/2020) Performed for Polyarthritis, Encounter for therapeutic drug monitoring * CBC W AUTO DIFFERENTIAL(Performed 12/20/2020) Performed for Polyarthritis, Encounter for therapeutic drug monitoring * CULTURE URINE REFLEXED I(Performed 12/20/2020) * XR FOOT LEFT 2VW(Performed 12/10/2020) Performed for Polyarthritis * XR FOOT RIGHT 2VW(Performed 12/10/2020) Performed for Polyarthritis * URINALYSIS W/MICROSCOPIC REFLEX TO CULTURE(Performed 10/18/2020) Performed for Polyarthritis, Encounter for therapeutic drug monitoring * C-REACTIVE PROTEIN(Performed 10/18/2020) Performed for Polyarthritis, Encounter for therapeutic drug monitoring * ERYTHROCYTE SEDIMENTATION RATE(Performed 10/18/2020) Performed for Polyarthritis, Encounter for therapeutic drug monitoring * COMPREHENSIVE METABOLIC PANEL(Performed 10/18/2020) Performed for Polyarthritis, Encounter for therapeutic drug monitoring * CBC W AUTO DIFFERENTIAL(Performed 10/18/2020) Performed for Polyarthritis, Encounter for therapeutic drug monitoring * CULTURE URINE REFLEXED I(Performed 10/18/2020) * C-REACTIVE PROTEIN(Performed 08/13/2020) Performed for Polyarthritis, Encounter for therapeutic drug monitoring, Encounter for long-term (current) use of medications * ERYTHROCYTE SEDIMENTATION RATE(Performed 08/13/2020) Performed for Polyarthritis, Encounter for therapeutic drug monitoring, Encounter for long-term (current) use of medications * COMPREHENSIVE METABOLIC PANEL(Performed 08/13/2020) Performed for Polyarthritis, Encounter for therapeutic drug monitoring, Encounter for long-term (current) use of medications * CBC W AUTO DIFFERENTIAL(Performed 08/13/2020) Performed for Polyarthritis, Encounter for therapeutic drug monitoring, Encounter for long-term (current) use of medications * URINALYSIS W/MICROSCOPIC REFLEX TO CULTURE(Performed 08/13/2020) Performed for Polyarthritis, Encounter for therapeutic drug monitoring, Encounter for long-term (current) use of medications * CULTURE URINE(Performed 08/13/2020) * CULTURE URINE REFLEXED(Performed 08/13/2020) * XR CHEST 2VW(Performed 06/04/2020) Performed for Encounter for therapeutic drug monitoring * QUANTIFERON-TB GOLD PLUS 1-TUBE(Performed 05/27/2020) * URINALYSIS W/MICROSCOPIC REFLEX TO CULTURE(Performed 05/27/2020) Performed for Polyarthritis, Encounter for therapeutic drug monitoring * C-REACTIVE PROTEIN(Performed 05/27/2020) Performed for Polyarthritis, Encounter for therapeutic drug monitoring * ERYTHROCYTE SEDIMENTATION RATE(Performed 05/27/2020) Performed for Polyarthritis, Encounter for therapeutic drug monitoring * COMPREHENSIVE METABOLIC PANEL(Performed 05/27/2020) Performed for Polyarthritis, Encounter for therapeutic drug monitoring * CBC W AUTO DIFFERENTIAL(Performed 05/27/2020) Performed for Polyarthritis, Encounter for therapeutic drug monitoring * CULTURE URINE REFLEXED I(Performed 05/27/2020) * DERMATOPATHOLOGY(Performed 05/02/2020) * DERMATOPATHOLOGY(Performed 04/19/2020) * URINALYSIS W/MICROSCOPIC REFLEX TO CULTURE(Performed 04/12/2020) Performed for Polyarthritis, Encounter for therapeutic drug monitoring * C-REACTIVE PROTEIN(Performed 04/12/2020) Performed for Polyarthritis, Encounter for therapeutic drug monitoring * ERYTHROCYTE SEDIMENTATION RATE(Performed 04/12/2020) Performed for Polyarthritis, Encounter for therapeutic drug monitoring * COMPREHENSIVE METABOLIC PANEL(Performed 04/12/2020) Performed for Polyarthritis, Encounter for therapeutic drug monitoring * CBC W AUTO DIFFERENTIAL(Performed 04/12/2020) Performed for Polyarthritis, Encounter for therapeutic drug monitoring * CULTURE URINE REFLEXED I(Performed 04/12/2020) * C-REACTIVE PROTEIN(Performed 10/20/2019) * ERYTHROCYTE SEDIMENTATION RATE(Performed 10/20/2019) * COMPREHENSIVE METABOLIC PANEL(Performed 10/20/2019) * CBC W AUTO DIFFERENTIAL(Performed 10/20/2019) * URINALYSIS W/MICROSCOPIC REFLEX TO CULTURE(Performed 10/20/2019) * CULTURE URINE REFLEXED I(Performed 10/20/2019) * C-REACTIVE PROTEIN(Performed 09/22/2019) * COMPREHENSIVE METABOLIC PANEL(Performed 09/22/2019) * URINALYSIS W/MICROSCOPIC REFLEX TO CULTURE(Performed 09/22/2019) * ERYTHROCYTE SEDIMENTATION RATE(Performed 09/22/2019) * CBC W/O DIFFERENTIAL(Performed 09/22/2019) * CULTURE URINE REFLEXED I(Performed 09/22/2019) * C-REACTIVE PROTEIN(Performed 09/08/2019) * COMPREHENSIVE METABOLIC PANEL(Performed 09/08/2019) * URINALYSIS W/MICROSCOPIC REFLEX TO CULTURE(Performed 09/08/2019) * ERYTHROCYTE SEDIMENTATION RATE(Performed 09/08/2019) * CBC W AUTO DIFFERENTIAL(Performed 09/08/2019) * CULTURE URINE REFLEXED I(Performed 09/08/2019) * URINALYSIS W/MICROSCOPIC REFLEX TO CULTURE(Performed 06/06/2019) Performed for Polyarthritis, Encounter for therapeutic drug monitoring * ERYTHROCYTE SEDIMENTATION RATE(Performed 06/06/2019) Performed for Polyarthritis, Encounter for therapeutic drug monitoring * COMPREHENSIVE METABOLIC PANEL(Performed 06/06/2019) Performed for Polyarthritis, Encounter for therapeutic drug monitoring * C-REACTIVE PROTEIN(Performed 06/06/2019) Performed for Polyarthritis, Encounter for therapeutic drug monitoring * CBC W AUTO DIFFERENTIAL(Performed 06/06/2019) Performed for Polyarthritis, Encounter for therapeutic drug monitoring * CULTURE URINE REFLEXED I(Performed 06/06/2019) * QUANTIFERON-TB GOLD PLUS 1-TUBE(Performed 06/06/2019) * SS-A/SS-B (SJOGREN'S) ANTIBODY PANEL(Performed 06/06/2019) Performed for Polyarthritis * IMMUNOGLOBULINS IGG/IGM/IGA PANEL(Performed 06/06/2019) Performed for Polyarthritis * RHEUMATOID ARTHRITIS PANEL(Performed 06/06/2019) Performed for Polyarthritis * XR CHEST 2VW(Performed 06/05/2019) Performed for Polyarthritis, Encounter for therapeutic drug monitoring * URINALYSIS W/MICROSCOPIC REFLEX TO CULTURE(Performed 04/14/2019) Performed for Polyarthritis, Encounter for therapeutic drug monitoring * ERYTHROCYTE SEDIMENTATION RATE(Performed 04/14/2019) Performed for Polyarthritis, Encounter for therapeutic drug monitoring * COMPREHENSIVE METABOLIC PANEL(Performed 04/14/2019) Performed for Polyarthritis, Encounter for therapeutic drug monitoring * C-REACTIVE PROTEIN(Performed 04/14/2019) Performed for Polyarthritis, Encounter for therapeutic drug monitoring * CBC W AUTO DIFFERENTIAL(Performed 04/14/2019) Performed for Polyarthritis, Encounter for therapeutic drug monitoring * CULTURE URINE(Performed 04/14/2019) * CULTURE URINE REFLEXED(Performed 04/14/2019) * URINALYSIS W/MICROSCOPIC REFLEX TO CULTURE(Performed 01/05/2019) Performed for Polyarthritis, Encounter for therapeutic drug monitoring * ERYTHROCYTE SEDIMENTATION RATE(Performed 01/05/2019) Performed for Polyarthritis, Encounter for therapeutic drug monitoring * C-REACTIVE PROTEIN(Performed 01/05/2019) Performed for Polyarthritis, Encounter for therapeutic drug monitoring * COMPREHENSIVE METABOLIC PANEL(Performed 01/05/2019) Performed for Polyarthritis, Encounter for therapeutic drug monitoring * CBC W/O DIFFERENTIAL(Performed 01/05/2019) Performed for Polyarthritis, Encounter for therapeutic drug monitoring * CULTURE URINE REFLEXED I(Performed 01/05/2019) * URINALYSIS W/MICROSCOPIC REFLEX TO CULTURE(Performed 11/17/2018) Performed for Polyarthritis, Encounter for therapeutic drug monitoring * ERYTHROCYTE SEDIMENTATION RATE(Performed 11/17/2018) Performed for Polyarthritis, Encounter for therapeutic drug monitoring * C-REACTIVE PROTEIN(Performed 11/17/2018) Performed for Polyarthritis, Encounter for therapeutic drug monitoring * COMPREHENSIVE METABOLIC PANEL(Performed 11/17/2018) Performed for Polyarthritis, Encounter for therapeutic drug monitoring * CBC W/O DIFFERENTIAL(Performed 11/17/2018) Performed for Polyarthritis, Encounter for therapeutic drug monitoring * URINALYSIS W/MICROSCOPIC REFLEX TO CULTURE(Performed 11/17/2018) Performed for Polyarthritis, Encounter for therapeutic drug monitoring * CULTURE URINE REFLEXED I(Performed 11/17/2018) * QUANTIFERON TB-GOLD(Performed 08/12/2018) Performed for Polyarthritis, Encounter for therapeutic drug monitoring * URINALYSIS W/MICROSCOPIC REFLEX TO CULTURE(Performed 08/12/2018) Performed for Polyarthritis, Encounter for therapeutic drug monitoring * ERYTHROCYTE SEDIMENTATION RATE(Performed 08/12/2018) Performed for Polyarthritis, Encounter for therapeutic drug monitoring * COMPREHENSIVE METABOLIC PANEL(Performed 08/12/2018) Performed for Polyarthritis, Encounter for therapeutic drug monitoring * C-REACTIVE PROTEIN(Performed 08/12/2018) Performed for Polyarthritis, Encounter for therapeutic drug monitoring * CBC W AUTO DIFFERENTIAL(Performed 08/12/2018) Performed for Polyarthritis, Encounter for therapeutic drug monitoring * CULTURE URINE REFLEXED I(Performed 08/12/2018) * XR CHEST 2VW(Performed 08/08/2018) Performed for Polyarthritis, Encounter for therapeutic drug monitoring * ERYTHROCYTE SEDIMENTATION RATE(Performed 06/01/2018) Performed for Polyarthritis, Encounter for therapeutic drug monitoring * C-REACTIVE PROTEIN(Performed 06/01/2018) Performed for Polyarthritis, Encounter for therapeutic drug monitoring * COMPREHENSIVE METABOLIC PANEL(Performed 06/01/2018) Performed for Polyarthritis, Encounter for therapeutic drug monitoring * CBC W AUTO DIFFERENTIAL(Performed 06/01/2018) Performed for Encounter for therapeutic drug monitoring, Encounter for long-term (current) use of medications, Polyarthritis, Primary osteoarthritis involving multiple joints * URINALYSIS W/MICROSCOPIC REFLEX TO CULTURE(Performed 03/18/2018) Performed for Encounter for therapeutic drug monitoring, Encounter for long-term (current) use of medications, Polyarthritis, Primary osteoarthritis involving multiple joints * ERYTHROCYTE SEDIMENTATION RATE(Performed 03/18/2018) Performed for Encounter for therapeutic drug monitoring, Encounter for long-term (current) use of medications, Polyarthritis, Primary osteoarthritis involving multiple joints * C-REACTIVE PROTEIN(Performed 03/18/2018) Performed for Encounter for therapeutic drug monitoring, Encounter for long-term (current) use of medications, Polyarthritis, Primary osteoarthritis involving multiple joints * CBC W AUTO DIFFERENTIAL(Performed 03/18/2018) Performed for Encounter for therapeutic drug monitoring, Encounter for long-term (current) use of medications, Polyarthritis, Primary osteoarthritis involving multiple joints * COMPREHENSIVE METABOLIC PANEL(Performed 03/18/2018) Performed for Encounter for therapeutic drug monitoring, Encounter for long-term (current) use of medications, Polyarthritis, Primary osteoarthritis involving multiple joints * CULTURE URINE REFLEXED I(Performed 03/18/2018) Performed for Encounter for therapeutic drug monitoring, Encounter for long-term (current) use of medications, Polyarthritis, Primary osteoarthritis involving multiple joints * XR KNEE RIGHT 3VW(Performed 01/31/2018) * XR KNEE LEFT 3VW(Performed 01/31/2018) * ERYTHROCYTE SEDIMENTATION RATE(Performed 01/07/2018) * URINALYSIS W/MICROSCOPIC REFLEX TO CULTURE(Performed 01/07/2018) * COMPREHENSIVE METABOLIC PANEL(Performed 01/07/2018) * CBC W AUTO DIFFERENTIAL(Performed 01/07/2018) * C-REACTIVE PROTEIN(Performed 01/07/2018) * C-REACTIVE PROTEIN(Performed 10/22/2017) * URINALYSIS W/MICROSCOPIC REFLEX TO CULTURE(Performed 10/22/2017) * COMPREHENSIVE METABOLIC PANEL(Performed 10/22/2017) * ERYTHROCYTE SEDIMENTATION RATE(Performed 10/22/2017) * CBC W AUTO DIFFERENTIAL(Performed 10/22/2017) * SS-A/SS-B (SJOGREN'S) ANTIBODY PANEL(Performed 08/13/2017) * EARLY SJOGREN'S SYNDROME PROFILE(Performed 08/13/2017) * QUANTIFERON TB-GOLD(Performed 08/13/2017) * CBC W AUTO DIFFERENTIAL(Performed 08/13/2017) * ERYTHROCYTE SEDIMENTATION RATE(Performed 08/13/2017) * URINALYSIS W/MICROSCOPIC REFLEX TO CULTURE(Performed 08/13/2017) * COMPREHENSIVE METABOLIC PANEL(Performed 08/13/2017) * C-REACTIVE PROTEIN(Performed 08/13/2017) * XR CHEST 2VW(Performed 08/02/2017) * C-REACTIVE PROTEIN(Performed 06/25/2017) * ERYTHROCYTE SEDIMENTATION RATE(Performed 06/25/2017) * CBC W AUTO DIFFERENTIAL(Performed 06/25/2017) * COMPREHENSIVE METABOLIC PANEL(Performed 06/25/2017) * URINALYSIS W/MICROSCOPIC REFLEX TO CULTURE(Performed 06/25/2017) * URINALYSIS W/MICROSCOPIC REFLEX TO CULTURE(Performed 04/21/2017) * ERYTHROCYTE SEDIMENTATION RATE(Performed 04/21/2017) * C-REACTIVE PROTEIN(Performed 04/21/2017) * COMPREHENSIVE METABOLIC PANEL(Performed 04/21/2017) * CBC W AUTO DIFFERENTIAL(Performed 04/21/2017) * C-REACTIVE PROTEIN(Performed 03/05/2017) * CBC W AUTO DIFFERENTIAL(Performed 03/05/2017) * URINALYSIS W/MICROSCOPIC REFLEX TO CULTURE(Performed 03/05/2017) * ERYTHROCYTE SEDIMENTATION RATE(Performed 03/05/2017) * COMPREHENSIVE METABOLIC PANEL(Performed 03/05/2017) * C-REACTIVE PROTEIN(Performed 03/05/2017) * CBC W AUTO DIFFERENTIAL(Performed 03/05/2017) * URINALYSIS W/MICROSCOPIC REFLEX TO CULTURE(Performed 03/05/2017) * ERYTHROCYTE SEDIMENTATION RATE(Performed 03/05/2017) * COMPREHENSIVE METABOLIC PANEL(Performed 03/05/2017) * CBC W AUTO DIFFERENTIAL(Performed 03/05/2017) * URINALYSIS W/MICROSCOPIC REFLEX TO CULTURE(Performed 03/05/2017) * ERYTHROCYTE SEDIMENTATION RATE(Performed 03/05/2017) * COMPREHENSIVE METABOLIC PANEL(Performed 03/05/2017) * CBC W AUTO DIFFERENTIAL(Performed 03/05/2017) * URINALYSIS W/MICROSCOPIC REFLEX TO CULTURE(Performed 03/05/2017) * ERYTHROCYTE SEDIMENTATION RATE(Performed 03/05/2017) * COMPREHENSIVE METABOLIC PANEL(Performed 03/05/2017) * CBC W AUTO DIFFERENTIAL(Performed 03/05/2017) * URINALYSIS W/MICROSCOPIC REFLEX TO CULTURE(Performed 03/05/2017) * COMPREHENSIVE METABOLIC PANEL(Performed 03/05/2017) * CBC W AUTO DIFFERENTIAL(Performed 03/05/2017) * URINALYSIS W/MICROSCOPIC REFLEX TO CULTURE(Performed 03/05/2017) * CBC W AUTO DIFFERENTIAL(Performed 03/05/2017) * C-REACTIVE PROTEIN(Performed 01/08/2017) * CBC W AUTO DIFFERENTIAL(Performed 01/08/2017) * URINALYSIS W/MICROSCOPIC REFLEX TO CULTURE(Performed 01/08/2017) * ERYTHROCYTE SEDIMENTATION RATE(Performed 01/08/2017) * COMPREHENSIVE METABOLIC PANEL(Performed 01/08/2017) * CBC W AUTO DIFFERENTIAL(Performed 01/08/2017) * URINALYSIS W/MICROSCOPIC REFLEX TO CULTURE(Performed 01/08/2017) * ERYTHROCYTE SEDIMENTATION RATE(Performed 01/08/2017) * COMPREHENSIVE METABOLIC PANEL(Performed 01/08/2017) * CBC W AUTO DIFFERENTIAL(Performed 01/08/2017) * URINALYSIS W/MICROSCOPIC REFLEX TO CULTURE(Performed 01/08/2017) * ERYTHROCYTE SEDIMENTATION RATE(Performed 01/08/2017) * COMPREHENSIVE METABOLIC PANEL(Performed 01/08/2017) * CBC W AUTO DIFFERENTIAL(Performed 01/08/2017) * URINALYSIS W/MICROSCOPIC REFLEX TO CULTURE(Performed 01/08/2017) * COMPREHENSIVE METABOLIC PANEL(Performed 01/08/2017) * URINALYSIS W/MICROSCOPIC REFLEX TO CULTURE(Performed 01/08/2017) * C-REACTIVE PROTEIN(Performed 11/20/2016) * CBC W AUTO DIFFERENTIAL(Performed 11/20/2016) * URINALYSIS W/MICROSCOPIC REFLEX TO CULTURE(Performed 11/20/2016) * ERYTHROCYTE SEDIMENTATION RATE(Performed 11/20/2016) * COMPREHENSIVE METABOLIC PANEL(Performed 11/20/2016) * CBC W AUTO DIFFERENTIAL(Performed 11/20/2016) * URINALYSIS W/MICROSCOPIC REFLEX TO CULTURE(Performed 11/20/2016) * ERYTHROCYTE SEDIMENTATION RATE(Performed 11/20/2016) * COMPREHENSIVE METABOLIC PANEL(Performed 11/20/2016) * CBC W AUTO DIFFERENTIAL(Performed 11/20/2016) * URINALYSIS W/MICROSCOPIC REFLEX TO CULTURE(Performed 11/20/2016) * COMPREHENSIVE METABOLIC PANEL(Performed 11/20/2016) * CBC W AUTO DIFFERENTIAL(Performed 11/20/2016) * URINALYSIS W/MICROSCOPIC REFLEX TO CULTURE(Performed 11/20/2016) * CBC W AUTO DIFFERENTIAL(Performed 11/20/2016) * QUANTIFERON TB-GOLD(Performed 09/18/2016) * C-REACTIVE PROTEIN(Performed 09/18/2016) * CBC W AUTO DIFFERENTIAL(Performed 09/18/2016) * URINALYSIS W/MICROSCOPIC REFLEX TO CULTURE(Performed 09/18/2016) * ERYTHROCYTE SEDIMENTATION RATE(Performed 09/18/2016) * COMPREHENSIVE METABOLIC PANEL(Performed 09/18/2016) * C-REACTIVE PROTEIN(Performed 09/18/2016) * ERYTHROCYTE SEDIMENTATION RATE(Performed 09/18/2016) * URINALYSIS W/MICROSCOPIC REFLEX TO CULTURE(Performed 09/18/2016) * URINALYSIS W/MICROSCOPIC REFLEX TO CULTURE(Performed 09/18/2016) * COMPREHENSIVE METABOLIC PANEL(Performed 09/18/2016) * CBC W AUTO DIFFERENTIAL(Performed 09/18/2016) * DERMATOPATHOLOGY(Performed 08/06/2016) * PATHOLOGY/GENETICS HISTORICAL-ONBASE(Performed 08/06/2016) * XR CHEST 2VW(Performed 08/03/2016) * C-REACTIVE PROTEIN(Performed 07/24/2016) * CBC W AUTO DIFFERENTIAL(Performed 07/24/2016) * ERYTHROCYTE SEDIMENTATION RATE(Performed 07/24/2016) * URINALYSIS W/MICROSCOPIC REFLEX TO CULTURE(Performed 07/24/2016) * COMPREHENSIVE METABOLIC PANEL(Performed 07/24/2016) * URINALYSIS W/MICROSCOPIC REFLEX TO CULTURE(Performed 07/24/2016) * COMPREHENSIVE METABOLIC PANEL(Performed 07/24/2016) * URINALYSIS W/MICROSCOPIC REFLEX TO CULTURE(Performed 07/24/2016) * ERYTHROCYTE SEDIMENTATION RATE(Performed 07/24/2016) * CBC W AUTO DIFFERENTIAL(Performed 07/24/2016) * URINALYSIS W/MICROSCOPIC REFLEX TO CULTURE(Performed 04/30/2016) * C-REACTIVE PROTEIN(Performed 04/30/2016) * ERYTHROCYTE SEDIMENTATION RATE(Performed 04/30/2016) * CBC W AUTO DIFFERENTIAL(Performed 04/30/2016) * URINALYSIS W/MICROSCOPIC REFLEX TO CULTURE(Performed 04/30/2016) * COMPREHENSIVE METABOLIC PANEL(Performed 04/30/2016) * URINALYSIS W/MICROSCOPIC REFLEX TO CULTURE(Performed 04/30/2016) * COMPREHENSIVE METABOLIC PANEL(Performed 04/30/2016) * CBC W AUTO DIFFERENTIAL(Performed 04/30/2016) * ERYTHROCYTE SEDIMENTATION RATE(Performed 04/30/2016) * MRI PELVIS WO CONTRAST(Performed 03/06/2016) Performed for 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), Hip pain, bilateral * CBC W AUTO DIFFERENTIAL(Performed 02/21/2016) * ERYTHROCYTE SEDIMENTATION RATE(Performed 02/21/2016) * URINALYSIS W/MICROSCOPIC REFLEX TO CULTURE(Performed 02/21/2016) * COMPREHENSIVE METABOLIC PANEL(Performed 02/21/2016) * C-REACTIVE PROTEIN(Performed 02/21/2016) * XR PELVIS W BILAT HIP 2VW(Performed 02/13/2016) Performed for Bilateral hip pain * DERMATOPATHOLOGY(Performed 02/06/2016) * PATHOLOGY/GENETICS HISTORICAL-ONBASE(Performed 02/06/2016) * COMPREHENSIVE METABOLIC PANEL(Performed 12/13/2015) * ERYTHROCYTE SEDIMENTATION RATE(Performed 12/13/2015) * CBC W AUTO DIFFERENTIAL(Performed 12/13/2015) * CBC W AUTO DIFFERENTIAL(Performed 10/15/2015) * ERYTHROCYTE SEDIMENTATION RATE(Performed 10/15/2015) * COMPREHENSIVE METABOLIC PANEL(Performed 10/15/2015) * URINALYSIS W/MICROSCOPIC REFLEX TO CULTURE(Performed 10/15/2015) * C-REACTIVE PROTEIN(Performed 10/15/2015) * COMPREHENSIVE METABOLIC PANEL(Performed 10/15/2015) * ERYTHROCYTE SEDIMENTATION RATE(Performed 10/15/2015) * CBC W AUTO DIFFERENTIAL(Performed 10/15/2015) * CBC W AUTO DIFFERENTIAL(Performed 09/20/2015) * ERYTHROCYTE SEDIMENTATION RATE(Performed 09/20/2015) * URINALYSIS W/MICROSCOPIC REFLEX TO CULTURE(Performed 09/20/2015) * COMPREHENSIVE METABOLIC PANEL(Performed 09/20/2015) * COMPREHENSIVE METABOLIC PANEL(Performed 09/20/2015) * URINALYSIS W/MICROSCOPIC REFLEX TO CULTURE(Performed 09/20/2015) * ERYTHROCYTE SEDIMENTATION RATE(Performed 09/20/2015) * CBC W AUTO DIFFERENTIAL(Performed 09/20/2015) * CULTURE URINE REFLEXED(Performed 09/20/2015) * C-REACTIVE PROTEIN(Performed 08/08/2015) * CBC W AUTO DIFFERENTIAL(Performed 08/08/2015) * URINALYSIS W/MICROSCOPIC REFLEX TO CULTURE(Performed 08/08/2015) * ERYTHROCYTE SEDIMENTATION RATE(Performed 08/08/2015) * COMPREHENSIVE METABOLIC PANEL(Performed 08/08/2015) * RHEUMATOID ARTHRITIS PANEL(Performed 08/08/2015) * QUANTIFERON TB-GOLD(Performed 08/08/2015) * C-REACTIVE PROTEIN(Performed 08/08/2015) * URINALYSIS W/MICROSCOPIC REFLEX TO CULTURE(Performed 08/08/2015) * ERYTHROCYTE SEDIMENTATION RATE(Performed 08/08/2015) * COMPREHENSIVE METABOLIC PANEL(Performed 08/08/2015) * CBC W AUTO DIFFERENTIAL(Performed 08/08/2015) * CULTURE URINE REFLEXED(Performed 08/08/2015) * XR CHEST 2VW(Performed 08/06/2015) * URINALYSIS W/MICROSCOPIC REFLEX TO CULTURE(Performed 06/25/2015) * ERYTHROCYTE SEDIMENTATION RATE(Performed 06/25/2015) * C-REACTIVE PROTEIN(Performed 06/25/2015) * COMPREHENSIVE METABOLIC PANEL(Performed 06/25/2015) * CBC W AUTO DIFFERENTIAL(Performed 06/25/2015) * CULTURE URINE REFLEXED(Performed 06/25/2015) * URINALYSIS W/MICROSCOPIC REFLEX TO CULTURE(Performed 04/23/2015) * ERYTHROCYTE SEDIMENTATION RATE(Performed 04/23/2015) * C-REACTIVE PROTEIN(Performed 04/23/2015) * COMPREHENSIVE METABOLIC PANEL(Performed 04/23/2015) * CBC W AUTO DIFFERENTIAL(Performed 04/23/2015) * CULTURE URINE REFLEXED(Performed 04/23/2015) * URINALYSIS W/MICROSCOPIC REFLEX TO CULTURE(Performed 03/25/2015) * ERYTHROCYTE SEDIMENTATION RATE(Performed 03/25/2015) * C-REACTIVE PROTEIN(Performed 03/25/2015) * COMPREHENSIVE METABOLIC PANEL(Performed 03/25/2015) * CBC W AUTO DIFFERENTIAL(Performed 03/25/2015) * CULTURE URINE REFLEXED(Performed 03/25/2015) * CBC W AUTO DIFFERENTIAL(Performed 03/08/2015) * RHEUMATOID ARTHRITIS PANEL(Performed 01/11/2015) * VITAMIN D 25-HYDROXY D2+D3(Performed 01/11/2015) * URINALYSIS W/MICROSCOPIC REFLEX TO CULTURE(Performed 01/11/2015) * ERYTHROCYTE SEDIMENTATION RATE(Performed 01/11/2015) * C-REACTIVE PROTEIN(Performed 01/11/2015) * COMPREHENSIVE METABOLIC PANEL(Performed 01/11/2015) * CBC W AUTO DIFFERENTIAL(Performed 01/11/2015) * CULTURE URINE REFLEXED(Performed 01/11/2015) * URINALYSIS W/MICROSCOPIC REFLEX TO CULTURE(Performed 11/16/2014) * CULTURE URINE REFLEXED(Performed 11/16/2014) * ERYTHROCYTE SEDIMENTATION RATE(Performed 11/16/2014) * COMPREHENSIVE METABOLIC PANEL(Performed 11/16/2014) * C-REACTIVE PROTEIN(Performed 11/16/2014) * QUANTIFERON TB-GOLD(Performed 09/29/2014) * RHEUMATOID ARTHRITIS PANEL(Performed 09/29/2014) * C-REACTIVE PROTEIN(Performed 09/29/2014) * PROTEIN 14-3-3 BLOOD(Performed 09/29/2014) * CBC W AUTO DIFFERENTIAL(Performed 09/29/2014) * URINALYSIS W/MICROSCOPIC REFLEX TO CULTURE(Performed 09/29/2014) * COMPREHENSIVE METABOLIC PANEL(Performed 09/29/2014) * ERYTHROCYTE SEDIMENTATION RATE(Performed 09/29/2014) * CULTURE URINE REFLEXED(Performed 09/29/2014) * XR CHEST 2VW(Performed 08/13/2014) * C-REACTIVE PROTEIN(Performed 08/09/2014) * CBC W AUTO DIFFERENTIAL(Performed 08/09/2014) * ERYTHROCYTE SEDIMENTATION RATE(Performed 08/09/2014) * URINALYSIS W/MICROSCOPIC REFLEX TO CULTURE(Performed 08/09/2014) * COMPREHENSIVE METABOLIC PANEL(Performed 08/09/2014) * C-REACTIVE PROTEIN(Performed 08/09/2014) * COMPREHENSIVE METABOLIC PANEL(Performed 08/09/2014) * URINALYSIS W/MICROSCOPIC REFLEX TO CULTURE(Performed 08/09/2014) * ERYTHROCYTE SEDIMENTATION RATE(Performed 08/09/2014) * CBC W AUTO DIFFERENTIAL(Performed 08/09/2014) * CULTURE URINE REFLEXED(Performed 08/09/2014) * C-REACTIVE PROTEIN(Performed 06/07/2014) * COMPREHENSIVE METABOLIC PANEL(Performed 06/07/2014) * ERYTHROCYTE SEDIMENTATION RATE(Performed 06/07/2014) * CBC W AUTO DIFFERENTIAL(Performed 06/07/2014) * SMOOTH MUSCLE ANTIBODY W REFLEX TITER(Performed 04/23/2014) * C-REACTIVE PROTEIN(Performed 04/23/2014) * COMPREHENSIVE METABOLIC PANEL(Performed 04/23/2014) * GGT(Performed 04/23/2014) * URINALYSIS W/MICROSCOPIC REFLEX TO CULTURE(Performed 04/23/2014) * CBC W AUTO DIFFERENTIAL(Performed 04/23/2014) * ERYTHROCYTE SEDIMENTATION RATE(Performed 04/23/2014) * CULTURE URINE(Performed 04/23/2014) * CULTURE URINE REFLEXED(Performed 04/23/2014) * MITOCHONDRIAL ANTIBODY SCREEN(Performed 03/23/2014) * HEPATITIS SCREEN ACUTE(Performed 03/23/2014) * C-REACTIVE PROTEIN(Performed 03/23/2014) * CBC W AUTO DIFFERENTIAL(Performed 03/23/2014) * COMPREHENSIVE METABOLIC PANEL(Performed 03/23/2014) * URINALYSIS W/MICROSCOPIC REFLEX TO CULTURE(Performed 03/23/2014) * ERYTHROCYTE SEDIMENTATION RATE(Performed 03/23/2014) * CULTURE URINE REFLEXED(Performed 03/23/2014) * C-REACTIVE PROTEIN(Performed 03/09/2014) * COMPREHENSIVE METABOLIC PANEL(Performed 03/09/2014) * ERYTHROCYTE SEDIMENTATION RATE(Performed 03/09/2014) * CBC W AUTO DIFFERENTIAL(Performed 03/09/2014) * URINALYSIS W/MICROSCOPIC REFLEX TO CULTURE(Performed 03/09/2014) * CULTURE URINE(Performed 03/09/2014) * CULTURE URINE REFLEXED(Performed 03/09/2014) * CBC W AUTO DIFFERENTIAL(Performed 01/18/2014) * COMPREHENSIVE METABOLIC PANEL(Performed 01/18/2014) * C-REACTIVE PROTEIN(Performed 01/18/2014) * ERYTHROCYTE SEDIMENTATION RATE(Performed 01/18/2014) * C-REACTIVE PROTEIN(Performed 12/21/2013) * COMPREHENSIVE METABOLIC PANEL(Performed 12/21/2013) * URINALYSIS W/MICROSCOPIC REFLEX TO CULTURE(Performed 12/21/2013) * ERYTHROCYTE SEDIMENTATION RATE(Performed 12/21/2013) * CBC W AUTO DIFFERENTIAL(Performed 12/21/2013) * CULTURE URINE(Performed 12/21/2013) * CULTURE URINE REFLEXED(Performed 12/21/2013) * C-REACTIVE PROTEIN(Performed 09/07/2013) * URINALYSIS W/MICROSCOPIC REFLEX TO CULTURE(Performed 09/07/2013) * COMPREHENSIVE METABOLIC PANEL(Performed 09/07/2013) * CBC W AUTO DIFFERENTIAL(Performed 09/07/2013) * ERYTHROCYTE SEDIMENTATION RATE(Performed 09/07/2013) * CULTURE URINE(Performed 09/07/2013) * CULTURE URINE REFLEXED(Performed 09/07/2013) * PROTEIN 14-3-3 BLOOD(Performed 09/07/2013) * QUANTIFERON TB-GOLD(Performed 09/07/2013) * YOSEF COMPREHENSIVE PLUS PROFILE(Performed 09/07/2013) * RHEUMATOID ARTHRITIS PANEL(Performed 09/07/2013) * C-REACTIVE PROTEIN(Performed 08/03/2013) * COMPREHENSIVE METABOLIC PANEL(Performed 08/03/2013) * ERYTHROCYTE SEDIMENTATION RATE(Performed 08/03/2013) * CBC W AUTO DIFFERENTIAL(Performed 08/03/2013) * C-REACTIVE PROTEIN(Performed 06/23/2013) * URINALYSIS W/MICROSCOPIC REFLEX TO CULTURE(Performed 06/23/2013) * ERYTHROCYTE SEDIMENTATION RATE(Performed 06/23/2013) * COMPREHENSIVE METABOLIC PANEL(Performed 06/23/2013) * CBC W AUTO DIFFERENTIAL(Performed 06/23/2013) * CULTURE URINE(Performed 06/23/2013) * CULTURE URINE REFLEXED(Performed 06/23/2013) * C-REACTIVE PROTEIN(Performed 05/12/2013) * ERYTHROCYTE SEDIMENTATION RATE(Performed 05/12/2013) * URINALYSIS W/MICROSCOPIC REFLEX TO CULTURE(Performed 05/12/2013) * COMPREHENSIVE METABOLIC PANEL(Performed 05/12/2013) * CBC W AUTO DIFFERENTIAL(Performed 05/12/2013) * CULTURE URINE REFLEXED(Performed 05/12/2013) * PROTEIN 14-3-3 BLOOD(Performed 04/26/2013) * VITAMIN D 25-HYDROXY D2+D3(Performed 04/26/2013) * RHEUMATOID ARTHRITIS PANEL(Performed 04/26/2013) * HLA TYPING B27(Performed 04/26/2013) * C-REACTIVE PROTEIN(Performed 04/26/2013) * COMPREHENSIVE METABOLIC PANEL(Performed 04/26/2013) * URINALYSIS W/MICROSCOPIC REFLEX TO CULTURE(Performed 04/26/2013) * ERYTHROCYTE SEDIMENTATION RATE(Performed 04/26/2013) * CBC W AUTO DIFFERENTIAL(Performed 04/26/2013) * CULTURE URINE(Performed 04/26/2013) * CULTURE URINE REFLEXED(Performed 04/26/2013) * CBC W AUTO DIFFERENTIAL(Performed 04/18/2013) * URINALYSIS W/MICROSCOPIC REFLEX TO CULTURE(Performed 03/27/2013) * ERYTHROCYTE SEDIMENTATION RATE(Performed 03/27/2013) * COMPREHENSIVE METABOLIC PANEL(Performed 03/27/2013) * CBC W AUTO DIFFERENTIAL(Performed 03/27/2013) * CULTURE URINE REFLEXED(Performed 03/27/2013) * LAB HISTORICAL RESULTS-ONBASE(Performed 02/20/2013) * CBC W/O DIFFERENTIAL(Performed 02/14/2013) * COMPREHENSIVE METABOLIC PANEL(Performed 02/14/2013) * C-REACTIVE PROTEIN(Performed 02/14/2013) * ERYTHROCYTE SEDIMENTATION RATE(Performed 02/14/2013) * URINALYSIS W/MICROSCOPIC REFLEX TO CULTURE(Performed 02/14/2013) * CULTURE URINE(Performed 02/14/2013) * CULTURE URINE REFLEXED(Performed 02/14/2013) * CBC W AUTO DIFFERENTIAL(Performed 01/19/2013) * COMPREHENSIVE METABOLIC PANEL(Performed 01/19/2013) * C-REACTIVE PROTEIN(Performed 01/19/2013) * ERYTHROCYTE SEDIMENTATION RATE(Performed 01/19/2013) * URINALYSIS W/MICROSCOPIC REFLEX TO CULTURE(Performed 01/19/2013) * URINALYSIS W/MICROSCOPIC REFLEX TO CULTURE(Performed 01/19/2013) * CULTURE URINE REFLEXED(Performed 01/19/2013) * URINALYSIS W/MICROSCOPIC REFLEX TO CULTURE(Performed 01/10/2013) * ERYTHROCYTE SEDIMENTATION RATE(Performed 01/10/2013) * COMPREHENSIVE METABOLIC PANEL(Performed 01/10/2013) * C-REACTIVE PROTEIN(Performed 01/10/2013) * CBC W AUTO DIFFERENTIAL(Performed 01/10/2013) * CULTURE URINE REFLEXED(Performed 01/10/2013) * CULTURE URINE(Performed 01/10/2013) * RHEUMATOID ARTHRITIS PANEL(Performed 12/08/2012) * CK BLOOD(Performed 12/08/2012) * URINALYSIS W/MICROSCOPIC REFLEX TO CULTURE(Performed 12/08/2012) * TSH(Performed 12/08/2012) * T3 FREE(Performed 12/08/2012) * T4 FREE(Performed 12/08/2012) * ERYTHROCYTE SEDIMENTATION RATE(Performed 12/08/2012) * C-REACTIVE PROTEIN(Performed 12/08/2012) * COMPREHENSIVE METABOLIC PANEL(Performed 12/08/2012) * CBC W AUTO DIFFERENTIAL(Performed 12/08/2012) * ALDOLASE(Performed 12/08/2012) * CULTURE URINE REFLEXED(Performed 12/08/2012) * MYCOPLASMA PNEUMONIAE AB IGG/IGM PANEL(Performed 11/11/2012) * URINALYSIS W/MICROSCOPIC REFLEX TO CULTURE(Performed 11/11/2012) * CBC W AUTO DIFFERENTIAL(Performed 11/11/2012) * ERYTHROCYTE SEDIMENTATION RATE(Performed 11/11/2012) * C-REACTIVE PROTEIN(Performed 11/11/2012) * COMPREHENSIVE METABOLIC PANEL(Performed 11/11/2012) * CULTURE URINE REFLEXED(Performed 11/11/2012) * LAB HISTORICAL RESULTS-ONBASE(Performed 11/07/2012) * COMPREHENSIVE METABOLIC PANEL(Performed 11/01/2012) * ERYTHROCYTE SEDIMENTATION RATE(Performed 11/01/2012) * PARVOVIRUS B19 IGG/IGM AB PANEL(Performed 11/01/2012) * CBC W AUTO DIFFERENTIAL(Performed 11/01/2012) * C-REACTIVE PROTEIN(Performed 11/01/2012) * HEPATITIS SCREEN ACUTE(Performed 11/01/2012) * XR FOOT RIGHT 2VW(Performed 10/31/2012) * XR FOOT LEFT 2VW(Performed 10/31/2012) * XR HAND RIGHT 2VW(Performed 10/31/2012) * XR HAND LEFT 2VW(Performed 10/31/2012) * RHEUMATOID ARTHRITIS PANEL(Performed 10/22/2012) * YOSEF COMPREHENSIVE PLUS PROFILE(Performed 10/22/2012) * URINALYSIS W/MICROSCOPIC REFLEX TO CULTURE(Performed 10/22/2012) * COMPREHENSIVE METABOLIC PANEL(Performed 10/22/2012) * ERYTHROCYTE SEDIMENTATION RATE(Performed 10/22/2012) * C-REACTIVE PROTEIN(Performed 10/22/2012) * CBC W AUTO DIFFERENTIAL(Performed 10/22/2012) * CULTURE URINE(Performed 10/22/2012) * CULTURE URINE REFLEXED(Performed 10/22/2012) Results * QUANTIFERON-TB GOLD PLUS 1-TUBE (10/25/2024 7:42 AM DEDICATED OWNER OPERATOR) Only the most recent of6 resultswithin the time period is included. [facility] QuantiFERON TB Gold Plus NEGATIVE NEGATIVE [facility] [...] T-lymphocytes. For additional information, please refer to https://education.[employer]/faq/CYH389 (This link is being provided for informational/ educational purposes only.) Test Performed at: [facility] [address] [place] ??[phone] NAVID SCOTT MD 10/25/2024 7:42 AM DEDICATED OWNER OPERATOR 10/25/2024 7:42 AM DEDICATED OWNER OPERATOR Perez Cervantes MD LAB - CHEMISTRY GERA DAVID Performing Organization Address [facility] Co de Phone Number [facility] [phone] [address] [phone] * HEPATITIS C AB W/RFLX TO HCV RNA QN PCR (10/25/2024 7:42 AM DEDICATED OWNER OPERATOR) Only the most recent of2 resultswithin the time period is included. Hepatitis C Antibody NON-REACTI VE NON-REACT [facility] Comment: HCV antibody was non-reactive. There is no laboratory evidence of HCV infection. In most cases, no further action is required. However, if recent HCV exposure is suspected, a test for HCV RNA (test code 52760) is suggested. For additional information please refer to http://education.[employer]/faq/RWD93r3 (This link is being provided for informational/ educational purposes only.) Test Performed at: [employer] [facility] [place] [phone] NAVID SCOTT MD Blood BLOOD SPECIMEN / Unknown 10/25/2024 7:42 AM DEDICATED OWNER OPERATOR 10/25/2024 7:42 AM DEDICATED OWNER OPERATOR Perez Cervantes MD LAB - CHEMISTRY GERA DAVID Performing Organization Address [facility] Co de Phone Number [facility] [address] [place] [address] * (ABNORMAL) HEPATITIS B SURFACE ANTIBODY (10/25/2024 7:42 AM DEDICATED OWNER OPERATOR) Only the most recent of2 resultswithin the time period is included. Hepatitis B Virus Surface Antibody REACTIVE(A ) NON-REACT ROMANA Kleer Comment: Test Performed at: [email or web address] [address] [employer] [place], [place] ??[phone] NAVID SCOTT MD Blood BLOOD SPECIMEN / Unknown 10/25/2024 7:42 AM DEDICATED OWNER OPERATOR 10/25/2024 7:42 AM DEDICATED OWNER OPERATOR Perez Cervantes MD LAB - CHEMISTRY GERA DAVID Performing Organization Address [facility] Co de Phone Number [facility] [phone] [place], [place] [id number] * HEPATITIS B CORE ANTIBODY TOTAL (10/25/2024 7:42 AM DEDICATED OWNER OPERATOR) Only the most recent of2 resultswithin the time period is included. Hepatitis B Core Virus Antibody Total NON-REACTI VE NON-REACT ROMANA [facility] Comment: For additional information, please refer to http://Replenish.Rehabtics/faq/DUV896 (This link is being provided for informational/ educational purposes only.) Test Performed at: [employer] [place] [employer] ??[phone] NAVID SCOTT MD Blood BLOOD SPECIMEN / Unknown 10/25/2024 7:42 AM DEDICATED OWNER OPERATOR 10/25/2024 7:42 AM DEDICATED OWNER OPERATOR Perez Cervantes MD LAB - CHEMISTRY GERA DAVID Performing Organization Address [facility] Co de Phone Number [facility] [phone] [place] [address] * HEPATITIS B SURFACE ANTIGEN W RFLX CONFIRMATION (10/25/2024 7:42 AM DEDICATED OWNER OPERATOR) Only the most recent of2 resultswithin the time period is included. Hepatitis B Virus Surface Antigen NON-REACTI VE NON-REACT ROMANA [facility] Comment: For additional information, please refer to http://Replenish.Rehabtics/faq/PTC256 (This link is being provided for informational/ educational purposes only.) Test Performed at: [employer] [place] [place] ??[phone] NAVID SCOTT MD Blood BLOOD SPECIMEN / Unknown 10/25/2024 7:42 AM DEDICATED OWNER OPERATOR 10/25/2024 7:42 AM DEDICATED OWNER OPERATOR Perez Cervantes MD LAB - CHEMISTRY GERA DAVID Performing Organization Address [facility] Co de Phone Number [facility] [address] [place] [address] * CULTURE URINE REFLEXED II (10/25/2024 7:39 AM DEDICATED OWNER OPERATOR) Only the most recent of10 resultswithin the time period is included. Reflexive Urine Culture See Below [facility] Comment: CULTURE INDICATED - RESULTS TO FOLLOW Test Performed at: [address] ??[phone] NAVID SCOTT MD 10/25/2024 7:39 AM DEDICATED OWNER OPERATOR 10/25/2024 7:40 AM DEDICATED OWNER OPERATOR Perez Cervantes MD LAB - MICROBIOLOGY O RDERABLES Performing Organization Address [facility] Co de Phone Number [address] [address] * (ABNORMAL) URINALYSIS W/MICROSCOPIC REFLEX TO CULTURE (10/25/2024 7:39 AM DEDICATED OWNER OPERATOR) Only the most recent of95 resultswithin the time period is included. Color UA YELLOW YELLOW [facility] Appearance CLOUDY(A) CLEAR [facility] Specific [place] UA 1.023 1.001 - 1.035 [facility] pH [...] elements seen were reported. Test Performed at: [address] ??[phone] NAVID SCOTT MD Urine URINE SPECIMEN OBTAINED BY CLEAN CATCH PROCEDURE / Unknown 10/25/2024 7:39 AM DEDICATED OWNER OPERATOR 10/25/2024 7:40 AM DEDICATED OWNER OPERATOR Perez Cervantes MD LAB - URINALYSIS ORD ERABLES Performing Organization Address City/State/[facility] de Phone Number [address] [address] * C-REACTIVE PROTEIN (10/25/2024 7:39 AM DEDICATED OWNER OPERATOR) Only the most recent of80 resultswithin the time period is included. Pathologist [facility] C-Reactive Protein <3.0 <8.0 mg/L [facility] Comment: Test Performed at: [email or web address] [address] ??[phone] NAVID SCOTT MD Blood BLOOD SPECIMEN / Unknown 10/25/2024 7:39 AM DEDICATED OWNER OPERATOR 10/25/2024 7:40 AM DEDICATED OWNER OPERATOR Perez Cervantes MD LAB - CHEMISTRY GERA DAVID Performing Organization Address [facility] de Phone Number [address] [address] * CULTURE URINE (10/25/2024 7:39 AM DEDICATED OWNER OPERATOR) Only the most recent of27 resultswithin the time period is included. Pathologist [facility] Culture [facility] Comment: ??CULTURE, URINE, ROUTINE ?Micro Number: ?[id number] ??Test Status: ? Final ??Specimen Source: ?? Urine ??Specimen Quality: ??Adequate ??Result: ?No Growth REPORT COMMENT: FASTING:YES Test Performed at: [email or web address] ??[phone] NAVID SCOTT MD 10/25/2024 7:39 AM DEDICATED OWNER OPERATOR 10/25/2024 7:40 AM DEDICATED OWNER OPERATOR Perez Cervantes MD LAB - MICROBIOLOGY Hector COOK Performing Organization Address [facility] de Phone Number [address] [address] * ERYTHROCYTE SEDIMENTATION RATE (10/25/2024 7:39 AM DEDICATED OWNER OPERATOR) Only the most recent of92 resultswithin the time period is included. Pathologist [facility] Erythrocyte Sedimentation Rate Westergren 6 < OR = 30 mm/h [facility] Comment: Test Performed at: [email or web address] [address] [place] ??[phone] NAVID SCOTT MD Blood BLOOD SPECIMEN / Unknown 10/25/2024 7:39 AM DEDICATED OWNER OPERATOR 10/25/2024 7:40 AM DEDICATED OWNER OPERATOR Perez Cervantes MD LAB - HEMATOLOGY ORD ERABLES [facility] [address] [place] [address] * (ABNORMAL) CBC WITH DIFFERENTIAL (10/25/2024 7:39 AM DEDICATED OWNER OPERATOR) Only the most recent of96 resultswithin the time period is included. White Blood Cell Count 4.5 3.8 - [...] 0.4 % [facility] Comment: Test Performed at: [email or web address] [address] [place] [address] ??[phone] NAVID SCOTT MD [facility] Comments [facility] Comment: Test Performed at: [email or web address] [address] [place] [address] ??[phone] NAVID SCOTT MD Blood BLOOD SPECIMEN / Unknown 10/25/2024 7:39 AM DEDICATED OWNER OPERATOR 10/25/2024 7:40 AM DEDICATED OWNER OPERATOR Perez Cervantes MD LAB - HEMATOLOGY ORD ERABLES [facility] [address] [place] [address] * COMPREHENSIVE METABOLIC PANEL (10/25/2024 7:39 AM DEDICATED OWNER OPERATOR) Only the most recent of97 resultswithin the time period is included. Glucose 83 65 - 99 mg/dL [facility] Comment: ? Fasting reference interval BUN 18 7 - 25 mg/dL [facility] Creatinine 0.79 0.50 - 1.05 mg/dL [facility] eGFR by Cystatin C 85 > OR = 60 mL/min/1. 73m2 [facility] BUN/Creatinine Ratio SEE NOTE: 6 (calc) [facility] Comment: ?? Not Reported: BUN [...] 29 U/L [facility] Comment: Test Performed at: [email or web address] [address] [place] [address] ??[phone] NAVID SCOTT MD Blood BLOOD SPECIMEN / Unknown 10/25/2024 7:39 AM DEDICATED OWNER OPERATOR 10/25/2024 7:40 AM DEDICATED OWNER OPERATOR Perez Cervantes MD LAB - CHEMISTRY GERA DAVID [facility] [address] [place] [address] * DERMATOPATHOLOGY (10/05/2024 10:33 AM DEDICATED OWNER OPERATOR) Only the most recent of6 resultswithin the time period is included. Case Report Dermatopathology Report ? Case: [id number] ? Authorizing Provider: ??Elida Reyes, ?? Collected: ? 10/05/2024 10:33 AM ? Ordering Location: ? [facility] - ??Received: ?10/05/2024 04:35 PM ? DermPath Lab ? Pathologist: ? Kassandra Maurer MD ? Specimen: ?Skin, left upper arm ? 4 1:26 PM [facility] D[facility] Final Diagnosis Specimen A. SKIN, left upper arm: LICHEN PLANUS-LIKE KERATOSIS (BENIGN LICHENOID KERATOSIS) (L82.1) 4 1:26 PM [facility] DERMATOPATH[facility] Clinical History R/O NMSC 1:26 PM [facility] DERMATOPATH[facility] Gross Description Specimen A: Received is one formalin filled container labeled with the patient's name and designated left upper arm. The specimen consists of a shave biopsy measuring 8x7x1 mm. Jar 0. 1:26 PM [facility] DERMATOPATH[facility]Y [facility] Microscopic Description Specimen A. SKIN, left upper arm: The epidermis is mildly acanthotic. There is a lichenoid infiltrate with vacuolar changes of basilar keratinocytes and scattered necrotic keratinocytes. 1:26 PM [facility] DERMATOPATHOLOGY [facility]OR[facility] Disclaimer An external and internal positive and negative controls are appropriate for the histochemical, immunohistochemical and immunofluorescence stain(s) in this case (if any), except where stated explicitly. The performance characteristics of the stain(s) cited in this report were developed and its performance characteristic determined by the Dermatopathology Laboratory at [facility], directed by Dr. Robbin Dunbar. These tests need not be, and therefore are not, approved by the [place] Food and Drug Administration. The tests are used for clinical purposes. Billing Codes Specimen Charges Stain Charges 18588 1 4 1:26 PM [facility] DERMAT[facility] Embedded Images 1:26 PM [facility] DERMAT[facility] Pathology/Cytolo gy TISSUE SPECIMEN FROM SKIN / Unknown 10/05/2024 10:33 AM DEDICATED OWNER OPERATOR 10/05/2024 4:35 PM [facility] Elida Reyes DO LAB - PATHOLOGY/C YTOLOGY ORDERABLES DERMATOPATHOLOGY LABORATORY [facility] - Department of Dermatology [address] [place], [place] [address] [place] [address] * XR Chest 2Vw (09/25/2024 2:53 PM DEDICATED OWNER OPERATOR) Only the most recent of11 resultswithin the time period is included. Anatomical Region Laterality Modality Chest Digital Radiogra phy 09/25/2024 8:41 PM DEDICATED OWNER OPERATOR Impressions 09/25/2024 8:41 PM DEDICATED OWNER OPERATOR IMPRESSION: No acute cardiopulmonary abnormalities. > Interpreting Provider: Cheryl Cespedes MD on 09/25/2024 8:41 PM Narrative 09/25/2024 8:41 PM DEDICATED OWNER OPERATOR PROCEDURE: ??XR CHEST 2VW DATE/TIME OF [...] FOOT RIGHT 2VW (03/27/2024 2:31 PM CDT) Only the most recent of3 resultswithin the time period is included. Anatomical Region Laterality Modality Ankle / Foot Radiographic Corin ging 03/27/2024 2:44 PM CDT Impressions 03/27/2024 2:57 PM CDT IMPRESSION: No significant arthritis on the above studies. Report dictated by Td Burton MD, MD (assistant professor of radiology). I, Dinh Toledo MD have personally reviewed and interpreted this examination/study. > Interpreting Provider: Dinh Toledo MD on 03/27/2024 2:57 PM Narrative 03/27/2024 2:57 PM CDT PROCEDURE: ??XR HAND RIGHT 2VW, XR HAND LEFT 2VW, XR FOOT LEFT 2VW, XR FOOT RIGHT 2VW, DATE/TIME OF EXAM: ??03/27/2024 2:31 PM, LOCATION ??[facility] INDICATION: M13.0: Polyarthritis COMPARISON: Right and left [...] DATE/TIME OF EXAM: 03/27/2024 2:31 PM, LOCATION [facility] INDICATION: M13.0: Polyarthritis COMPARISON: Right and left [...] Report dictated by Td Burton MD, MD (assistant professor of radiology). Dinh Osorio MD have personally reviewed and interpreted this examination/study. > Interpreting Provider: Dinh Toledo MD on 03/27/2024 2:57 PM Perez Cervantes MD DIAGNOSTIC IMAGING O RDERABLES * XR FOOT LEFT 2VW (03/27/2024 2:31 PM CDT) Only the most recent of3 resultswithin the time period is included. Anatomical Region Laterality Modality Ankle / Foot Radiographic Corin ging 03/27/2024 2:44 PM CDT Impressions 03/27/2024 2:57 PM CDT IMPRESSION: No significant arthritis on the above studies. Report dictated by Td Burton MD, MD (assistant professor of radiology). Dinh Osorio MD have personally reviewed and interpreted this examination/study. > Interpreting Provider: Dinh Toledo MD on 03/27/2024 2:57 PM Narrative 03/27/2024 2:57 PM CDT PROCEDURE: ??XR HAND RIGHT 2VW, XR HAND LEFT 2VW, XR FOOT LEFT 2VW, XR FOOT RIGHT 2VW, DATE/TIME OF EXAM: ??03/27/2024 2:31 PM, LOCATION ??[facility] INDICATION: M13.0: Polyarthritis COMPARISON: Right and left [...] DATE/TIME OF EXAM: 03/27/2024 2:31 PM, LOCATION [facility] INDICATION: M13.0: Polyarthritis COMPARISON: Right and left [...] Report dictated by Td Burton MD, MD (assistant professor of radiology). Dinh Osorio MD have personally reviewed and interpreted this examination/study. > Interpreting Provider: Dinh Toledo MD on 03/27/2024 2:57 PM Perez Cervantes MD DIAGNOSTIC IMAGING O RDERABLES * XR HAND RIGHT 2VW (03/27/2024 2:31 PM CDT) Only the most recent of2 resultswithin the time period is included. Anatomical Region Laterality Modality Wrist / Hand Radiographic Corin ging 03/27/2024 2:44 PM CDT Impressions 03/27/2024 2:57 PM CDT IMPRESSION: No significant arthritis on the above studies. Report dictated by Td Burton MD, (assistant professor of radiology). Dinh Osorio MD have personally reviewed and interpreted this examination/study. > Interpreting Provider: Dinh Toledo MD on 03/27/2024 2:57 PM Narrative 03/27/2024 2:57 PM CDT PROCEDURE: ??XR HAND RIGHT 2VW, XR HAND LEFT 2VW, XR FOOT LEFT 2VW, XR FOOT RIGHT 2VW, DATE/TIME OF EXAM: ??03/27/2024 2:31 PM, LOCATION ??[facility] INDICATION: M13.0: Polyarthritis COMPARISON: Right and left [...] DATE/TIME OF EXAM: 03/27/2024 2:31 PM, LOCATION [facility] INDICATION: M13.0: Polyarthritis COMPARISON: Right and left [...] Report dictated by Td Burton MD, MD (assistant professor of radiology). Dinh Osorio MD have personally reviewed and interpreted this examination/study. > Interpreting Provider: Dinh Toledo MD on 03/27/2024 2:57 PM Perez Cervantes MD DIAGNOSTIC IMAGING O RDERABLES * XR HAND LEFT 2VW (03/27/2024 2:31 PM CDT) Only the most recent of2 resultswithin the time period is included. Anatomical Region Laterality Modality Wrist / Hand Radiographic Corin ging 03/27/2024 2:44 PM CDT Impressions 03/27/2024 2:57 PM CDT IMPRESSION: No significant arthritis on the above studies. Report dictated by Td Burton MD, MD (assistant professor of radiology). Dinh Osorio MD have personally reviewed and interpreted this examination/study. > Interpreting Provider: Dinh Toledo MD on 03/27/2024 2:57 PM Narrative 03/27/2024 2:57 PM CDT PROCEDURE: ??XR HAND RIGHT 2VW, XR HAND LEFT 2VW, XR FOOT LEFT 2VW, XR FOOT RIGHT 2VW, DATE/TIME OF EXAM: ??03/27/2024 2:31 PM, LOCATION ??[facility] INDICATION: M13.0: Polyarthritis COMPARISON: Right and left [...] DATE/TIME OF EXAM: 03/27/2024 2:31 PM, LOCATION [facility] INDICATION: M13.0: Polyarthritis COMPARISON: Right and left [...] Report dictated by Td Burton MD, MD (assistant professor of radiology). I, Dinh Toledo MD have personally reviewed and interpreted this examination/study. > Interpreting Provider: Dinh Toledo MD on 03/27/2024 2:57 PM Perez Cervantes MD DIAGNOSTIC IMAGING O RDERABLES * CULTURE URINE REFLEXED III (02/14/2024 7:33 AM CDT) Only the most recent of5 resultswithin the time period is included. Reflexive Urine Culture See Below [facility] Comment: NO CULTURE INDICATED Test Performed at: [email or web address] ??[phone] NAVID SCOTT MD 02/14/2024 7:33 AM CDT 02/14/2024 7:33 AM CDT Perez Cervantes MD LAB - MICROBIOLOGY O RDERABLES Performing Organization Address [facility]/ZIP Co de Phone Number [address] [address] * URINALYSIS W/MICROSCOPIC NO CULTURE (09/30/2023 7:32 AM DEDICATED OWNER OPERATOR) Color UA YELLOW YELLOW [facility] Appearance CLEAR CLEAR [facility] Specific [place] UA 1.015 1.001 - 1.035 [facility] pH [...] SEEN /LPF [facility] Comment: Test Performed at: [employer] [place], [place] ??[address] NAVID SCOTT MD 09/30/2023 7:32 AM DEDICATED OWNER OPERATOR 09/30/2023 7:36 AM DEDICATED OWNER OPERATOR Perez Cervantes MD LAB - URINALYSIS ORD ERABLES Performing Organization Address [facility] Co de Phone Number [address] [address] * CULTURE URINE REFLEXED (05/15/2022 10:29 AM CDT) Only the most recent of30 resultswithin the time period is included. Reflexive Urine Culture See Below [facility] Comment: CULTURE INDICATED - RESULTS TO FOLLOW Test Performed at: [employer] [place], [place] ??[address] ASPEN HOLLINGSWORTH DO,MPH 05/15/2022 10:2 9 AM CDT 05/15/2022 10:34 AM CDT Perez Cervantes MD LAB - MICROBIOLOGY O RDERABLES [facility] [address] [place] [address] * (ABNORMAL) SARS-COV-2 (COVID-19) ANTIBODY IGG (06/20/2021 7:32 AM CDT) SARS COV-2 Ab IgG Bello, Semi Qn >20.00(H) <1.00 index [facility] Comment: Reference Range INDEX ? INTERPRETATION <1.00 ? Negative > or = 1.00 ? Positive ?? This test is intended to help identify individuals with antibodies to SARS-CoV-2 (COVID-19). The results of this semi-quantitative test should not be interpreted as an indication or degree of immunity or protection from reinfection. ?? A test result that is 1.00 or more (Positive) means antibodies to SARS-CoV-2 were detected in the blood sample by the test. This could mean that the individual may have an immune response to a recent or prior infection with SARS-CoV-2. Positive results may occur after COVID-19 vaccination, but the clinical significance of a positive antibody result for individuals that have received a COVID-19 vaccine is unknown, and the performance of the test has not been established in COVID-19 vaccinees. False positive results for the test may occur due to cross- reactivity from pre-existing antibodies or other possible causes. A test result that is less than 1.00 (Negative) means that antibodies were not detected in the blood sample by the test. This could mean that the individual has not been previously infected with SARS-CoV-2. The clinical significance of a negative antibody result for individuals that have received a COVID-19 vaccine is unknown. The performance of the test has not been established in COVID-19 vaccinees. False negative results for the test may occur if the individual's antibodies have not reached a sufficient level for the test to be able to detect them. Antibodies can take up to two to three weeks (sometimes longer) to develop after someone is infected. How long antibodies to SARS-CoV-2 last after infection is not known. This test should not be used to diagnose an active SARS- CoV-2 infection. If an active infection is suspected, direct molecular or antigen testing for SARS-CoV-2 is recommended. ?? Please review the Fact Sheets available for healthcare providers and patients using the following websites: https://www.[employer]/home/Covid-19/HCP/antibody/ fact-sheet8 ?? https://www.[employer]/home/Covid-19/Patients/ antibody/fact-sheet8 ?? Healthcare Providers: For additional information please refer to: http://education.Rehabtics/faq/AUG994 (This link is being provided for informational/ educational purposes only.) ?? This test has been authorized by the FDA under an Emergency Use Authorization (EUA) for use by authorized laboratories. The FDA authorized labeling is available on the handsomexcutive website: www.[employer]/Covid19. Test Performed at: [email or web address] [address] [place], [place] ??[address] ASPEN HOLLINGSWORTH DO,MPH Blood BLOOD SPECIMEN / Unknown 06/20/2021 7:32 AM CDT 06/20/2021 7:34 AM CDT Perez Cervantes MD LAB - CHEMISTRY GERA DAVID [facility] Organization Address City/State/ZIP Co de Phone Number [facility] [address] [place] [address] * CULTURE URINE REFLEXED I (05/02/2021 7:33 AM CDT) Only the most recent of14 resultswithin the time period is included. Reflexive Urine Culture See Below [facility] Comment: NO CULTURE INDICATED Test Performed at: [email or web address] [address] [place], [place] ??[phone] ASPEN HOLLNIGSWORTH DO,MPH 05/02/2021 7:33 AM CDT 05/02/2021 7:34 AM CDT Perez Cervantes MD LAB - MICROBIOLOGY O RDERABLES Performing Organization Address [facility] Co de Phone Number [address] [address] * (ABNORMAL) CBC W/O DIFFERENTIAL (09/22/2019 7:40 AM DEDICATED OWNER OPERATOR) Only the most recent of4 resultswithin the time period is included. White Blood Cell Count 3.6(L) 3.8 - 10.8 Thousand/ uL [facility] RBC 4.45 3.80 - 5.10 Million/u L [facility] Hemoglobin 13.6 11.7 - 15.5 g/dL [facility] Hematocrit 41.7 35.0 - 45.0 % [facility] MCV 93.7 80.0 - 100.0 fL [facility] MCH 30.6 27.0 - 33.0 pg [facility] MCHC 32.6 32.0 - 36.0 g/dL [facility] RDW 14.8 11.0 - 15.0 % [facility] Platelet Count 215 140 - 400 Thousand/ uL [facility] MPV 11.4 7.5 - 12.5 fL [facility] Comment: Test Performed at: [email or web address] ??[phone] NAVID SCOTT MD 09/22/2019 7:40 AM DEDICATED OWNER OPERATOR 09/22/2019 7:41 AM DEDICATED OWNER OPERATOR Perez Cervantes MD LAB - HEMATOLOGY ORD ERABLES Performing Organization Address [facility] Co de Phone Number [address] [address] * SS-A/SS-B (SJOGRENS) ANTIBODY PANEL (06/06/2019 8:15 AM CDT) Only the most recent of2 resultswithin the time period is included. Sjogren's Antibodies (SSA) <1.0 NEG <1.0 NEG AI [facility] Sjogren's Antibodies (SSB) <1.0 NEG <1.0 NEG AI [facility] Comment: Test Performed at: [email or web address] [facility] [address] [place], [place] ??[phone] ASPEN HOLLINGSWORTH DO,MPH Blood BLOOD SPECIMEN / Unknown 06/06/2019 8:15 AM CDT 06/06/2019 8:16 AM CDT Perez Cervantes MD LAB - CHEMISTRY GERA MANDEEPDEMARCO Performing Organization Address [facility] de Phone Number [facility] [address] [place] [phone] * RHEUMATOID ARTHRITIS PANEL (06/06/2019 8:15 AM CDT) Only the most recent of8 resultswithin the time period is included. Rheumatoid Factor <14 <14 IU/mL [facility] Cyclic Citrullinated Peptide Antibody IgG <16 UNITS [facility] Comment: Reference Range Negative: ?<20 Weak Positive: ? 20-39 Moderate Positive: ?? 40-59 Strong Positive: ? >59 Test Performed at: [employer] [place], [place] ??[address] ASPEN HOLLINGSWORTH DO,MPH Interpretation [facility] Comment: These serologic results may be found in 10-20% of patients with polyarthritis that is clinically and radiologically indistinguishable from RA. Test Performed at: [facility], [place] ??[address] ASPEN HOLLINGSWORTH DO,MPH Blood BLOOD SPECIMEN / Unknown 06/06/2019 8:15 AM CDT 06/06/2019 8:16 AM CDT Perez Cervantes MD LAB - SEROLOGY ORDER ADELAIDE Performing Organization Address [facility] de Phone Number [facility] [address] [place] [address] * IMMUNOGLOBULINS IGG/IGM/IGA PANEL (06/06/2019 8:15 AM CDT) IgA 236 47 - 310 mg/dL [facility] IgG 1242 600 - 1640 mg/dL [facility] IgM 76 50 - 300 mg/dL [facility] Comment: Test Performed at: [employer] [facility] [place] [facility]ITALmy[place], [place] ??[address] ASPEN HOLLINGSWORTH DO,MPH Blood BLOOD SPECIMEN / Unknown 06/06/2019 8:15 AM CDT 06/06/2019 8:16 AM CDT Perez Cervantes MD LAB - CHEMISTRY GERA DAVID Performing Organization Address [facility] Co de Phone Number [facility] [address] [place] [address] * QUANTIFERON TB-GOLD (08/12/2018 7:44 AM CDT) Only the most recent of6 resultswithin the time period is included. Pathologist [facility] QuantiFERON TB Gold NEGATIVE NEGATIVE [facility] Comment: Negative test result. M. tuberculosis complex infection unlikely. NIL 0.05 IU/mL [facility] Mitogen Nil 9.95 IU/mL [facility] TB-Nil 0.00 IU/mL [facility] Comment: The Nil tube value is used to determine if the patient has a preexisting immune response which could cause a false-positive reading on the test. In order for a test to be valid, the Nil tube must have a value of less than or equal to 8.0 IU/mL. The mitogen control tube is used to assure the patient has a healthy immune status and also serves as a control for correct blood handling and incubation. It is used to detect false-negative readings. The mitogen tube must have a gamma interferon value of greater than or equal to 0.5 IU/mL higher than the value of the Nil tube. The TB antigen tube is coated with the M. tuberculosis specific antigens. For a test to be considered positive, the TB antigen tube value minus the Nil tube value must be greater than or equal to 0.35 IU/mL. For additional information, please refer to http://[email or web address] Ideas/faq/QFT (This link is being provided for informational/ educational purposes only.) Test Performed at: [email or web address] ??[phone] ASPEN HOLLINGSWORTH DO,MPH Blood BLOOD SPECIMEN / Unknown 08/12/2018 7:44 AM CDT 08/12/2018 7:38 AM CDT Perez Cervantes MD LAB - CHEMISTRY GERA DAVID Performing Organization Address [facility] Co de Phone Number [facility] [address] [place] [address] * XR KNEE RIGHT 3VW (01/31/2018 1:30 PM CDT) Anatomical Region Laterality Modality Lower Extremity Other Impressions 02/01/2018 8:28 AM CDT IMPRESSION: No acute fracture or dislocation identified. No significant arthritis. Dictated by Rashard Brewster MD (assistant professor of radiology). Dr. ANA LUISA Osorio M.D. have personally reviewed and interpreted this examination/study. This report was electronically signed by ANA LUISA KAUFMAN M.D. ??on 02/01/2018 8:28 AM . Narrative 02/01/2018 8:28 AM CDT EXAMINATION: XR KNEE LEFT 3 VW, XR KNEE RIGHT 3 VW HISTORY: Knee pain COMPARISON: No prior study is available for comparison. FINDINGS: Left knee: The osseous structures are intact and well aligned without acute fracture or dislocation. The knee joint space is preserved. No joint effusion is seen. Bone density and texture are normal. Right knee: The osseous structures are intact without evidence of acute fracture or dislocation. The joint spaces are preserved. There is no joint effusion. Bone density and texture are normal. Procedure Note Ana Luisa Kaufman MD - 02/16/2018 EXAMINATION: XR KNEE LEFT 3 VW, XR KNEE RIGHT 3 VW HISTORY: Knee pain COMPARISON: No prior study is available for comparison. FINDINGS: Left knee: The osseous structures are intact and well aligned without acute fractureor dislocation. The knee joint space is preserved. No joint effusion isseen. Bone density and texture are normal. Right knee: The osseous structures are intact without evidence of acute fracture ordislocation. The joint spaces are preserved. There is no joint effusion.Bone density and texture are normal. IMPRESSION IMPRESSION: No acute fracture or dislocation identified. No significant arthritis. Dictated by Rashard Brewster MD (assistant professor of radiology). Dr. ANA LUISA Osorio M.D. have personally reviewed and interpreted thisexamination/study. This report was electronically signed by ANA LUISA KAUFMAN M.D. on 02/01/20188:28 AM . Perez Cervantes MD DIAGNOSTIC IMAGING O RDERABLES * XR KNEE LEFT 3VW (01/31/2018 1:30 PM CDT) Anatomical Region Laterality Modality Lower Extremity Other Impressions 02/01/2018 8:28 AM CDT IMPRESSION: No acute fracture or dislocation identified. No significant arthritis. Dictated by Rashard Brewster MD (assistant professor of radiology). Dr. ANA LUISA Osorio M.D. have personally reviewed and interpreted this examination/study. This report was electronically signed by ANA LUISA KAUFMAN M.D. ??on 02/01/2018 8:28 AM . Narrative 02/01/2018 8:28 AM CDT EXAMINATION: XR KNEE LEFT 3 VW, XR KNEE RIGHT 3 VW HISTORY: Knee pain COMPARISON: No prior study is available for comparison. FINDINGS: Left knee: The osseous structures are intact and well aligned without acute fracture or dislocation. The knee joint space is preserved. No joint effusion is seen. Bone density and texture are normal. Right knee: The osseous structures are intact without evidence of acute fracture or dislocation. The joint spaces are preserved. There is no joint effusion. Bone density and texture are normal. Procedure Note Ana Luisa Kaufman MD - 02/16/2018 EXAMINATION: XR KNEE LEFT 3 VW, XR KNEE RIGHT 3 VW HISTORY: Knee pain COMPARISON: No prior study is available for comparison. FINDINGS: Left knee: The osseous structures are intact and well aligned without acute fractureor dislocation. The knee joint space is preserved. No joint effusion isseen. Bone density and texture are normal. Right knee: The osseous structures are intact without evidence of acute fracture ordislocation. The joint spaces are preserved. There is no joint effusion.Bone density and texture are normal. IMPRESSION IMPRESSION: No acute fracture or dislocation identified. No significant arthritis. Dictated by Rashard Brewster MD (assistant professor of radiology). Dr. ANA LUISA Osorio M.D. have personally reviewed and interpreted thisexamination/study. This report was electronically signed by ANA LUISA KAUFMAN M.D. on 02/01/20188:28 AM . Perez Cervantes MD DIAGNOSTIC IMAGING O RDERABLES * (ABNORMAL) EARLY SJOGREN'S SYNDROME PROFILE (08/13/2017 7:38 AM CDT) Salivary Protein 1 Antibody IgG 4.3 EU/ml [facility] ([facility]) Comment: Reference Range: Negative: <20 EU/ml Positive: =>20 EU/ml Salivary Protein 1 Antibody IgA 4.9 EU/ml [facility] ([facility]) Comment: Reference Range: Negative: <20 EU/ml Positive: =>20 EU/ml Salivary Protein 1 Antibody IgM 20.7(H) EU/ml [facility] ([facility]) Comment: Reference Range: Negative: <20 EU/ml Positive: =>20 EU/ml Carbonic Anhydrase Antibody IgG 6.5 EU/ml [facility] ([facility]) Comment: Reference Range: Negative: <20 EU/ml Positive: =>20 EU/ml Carbonic Anhydrase Antibody IgA 5.8 EU/ml [facility] ([facility]) Comment: Reference Range: Negative: <20 EU/ml Positive: =>20 EU/ml Carbonic Anhydrase Antibody IgM 9.0 EU/ml [facility]) Comment: Reference Range: Negative: <20 EU/ml Positive: =>20 EU/ml Parotid Spec Protein Antibody IgG 2.7 EU/ml [facility]) Comment: Reference Range: Negative: <20 EU/ml Positive: =>20 EU/ml Parotid Spec Protein Antibody IgA 4.4 EU/ml [facility]) Comment: Reference Range: Negative: <20 EU/ml Positive: =>20 EU/ml Parotid Spec Protein Antibody IgM 1.9 EU/ml [facility] ([facility]) Comment: Reference Range: Negative: <20 EU/ml Positive: =>20 EU/ml Comment SEE BELOW [facility] ([facility]) Comment: The novel antibodies salivary gland protein 1 (SP-1), carbonic anhydrase 6 (CA ) and parotid secretory protein (PSP) have shown to be present in animal models for Sjogren's syndrome (SS) and patients with the disease. The antibodies SP-1, CA and PSP occurred earlier in the course of the disease than antibodies to Ro or La. These antibodies were found in 45% of patients meeting the criteria for SS who lacked antibodies to Ro or La. Furthermore, in patients with idiopathic xerostomia and xerophthalmia for less than 2 years, 76% had antibodies to SP-1 and/or CA while only 31% had antibodies to Ro or La. Antibodies to SP-1, CA and PSP may be useful markers for identifying patients with SS at early stages of the disease or those that lack antibodies to either Ro or La. The presence of the antibodies to SP-1, CA and PSP should be correlated with clinical (dry mouth, dry eyes), serological (Ro, La, YOSEF, RF) and histological (positive lymphocytic focus scores) findings in establishing a definitive diagnosis for SS. Soila Miranda. et al. (2010). A role of lymphotxin in primary sjogren's syndrome. J Immunol; 185: 3462-0602. Vanessa Miranda et al. (2012). Novel autoantibodies in Sjogren's syndrome. Clinical Immunology; 145, 251-255. *This test has been developed and performance parameters have been validated by [employer] This test ?? has not been approved by the U.S. Food and Drug Administration (FDA); however, US FDA approval is not required for clinical use. It is not intended that clincal diagnosis and patient management decisions be made using these results alone. This test has been validated using serum samples. The seasonal sales associate has not determined the efficacy of this test when performed on CSF, plasma, joint or pleural fluid specimens. The performance characteristics of this test were determined by [facility] Test Performed at: [facility] [address] [place] [address] [id number] [address] LIAN GONZALEZ 08/13/2017 7:38 AM CDT 08/13/2017 7:39 AM CDT Perez Cervantes MD LAB - SEROLOGY ORDER ADELAIDE Performing Organization Address [facility] Co de Phone Number [facility] ([facility]) * PATHOLOGY/GENETICS HISTORICAL-ONBASE (08/06/2016) Only the most recent of2 resultswithin the time period is included. 08/06/2016 Historical Provider LAB - CHEMISTRY O RDERABLES Performing Organization Address [facility] Co de Phone Number [address] * MRI PELVIS NON CONTRAST (03/06/2016 1:40 PM CDT) Anatomical Region Laterality Modality Pelvis Magnetic Resonan ce Angiography 03/06/2016 2:18 PM CDT Impressions 03/06/2016 2:24 PM CDT No evidence of pelvic or proximal femoral fracture. No evidence of femoral head osteonecrosis. Trace bilateral hip joint effusions and mild bilateral greater trochanteric bursitis. Narrative 03/06/2016 2:24 PM CDT Examination: MRI of the pelvis without contrast History: Rheumatoid arthritis and bilateral hip pain. Findings: MRI of the pelvis was performed without intravenous contrast. Comparison is made to radiographs dated 02/13/2016. There is patchy likely red marrow within the visualized portions of the lower lumbar spine as well as within portions of the pelvis and the proximal femora bilaterally. There is no evidence of femoral head osteonecrosis. There is no evidence of acute fracture of either hip or the pelvis. There is mild bilateral greater trochanteric bursitis. Trace bilateral hip joint effusions are noted. The sciatic nerves appear symmetric. Hamstring origins appear intact. No fracture of the visualized portion of the sacrum is noted. Limited imaging through the soft tissues demonstrates a trace amount of free fluid. Procedure Note Efrain Guerra MD - 03/06/2016 Examination: MRI of the pelvis without contrast History: Rheumatoid arthritis and bilateral hip pain. Findings: MRI of the pelvis was performed without intravenous contrast. Comparison is made to radiographs dated 02/13/2016. There is patchy likely red marrow within the visualized portions of the lower lumbar spine as well as within portions of the pelvis and the proximal femora bilaterally. There is no evidence of femoral head osteonecrosis. There is no evidence of acute fracture of either hip or the pelvis. There is mild bilateral greater trochanteric bursitis. Trace bilateral hip joint effusions are noted. The sciatic nerves appear symmetric. Hamstring origins appear intact. No fracture of the visualized portion of the sacrum is noted. Limited imaging through the soft tissues demonstrates a trace amount of free fluid. IMPRESSION No evidence of pelvic or proximal femoral fracture. No evidence of femoral head osteonecrosis. Trace bilateral hip joint effusions and mild bilateral greater trochanteric bursitis. Lian Garcia MD MR ORDERABLES * XR PELVIS W BILAT HIP 2VW (02/13/2016 9:25 AM CDT) Anatomical Region Laterality Modality Pelvis, Lower Extremity [facility] 02/13/2016 4:16 PM CDT Impressions 02/13/2016 4:18 PM CDT Normal bilateral hip joint spaces. Narrative 02/13/2016 4:18 PM CDT Examination: Bilateral hips 2 views with AP pelvis History: Bilateral hip pain Findings: 2 views of each hip and an AP view the pelvis were performed without prior comparison. There is no acute fracture of the pelvis. Hip joint spaces are maintained. There is no acute fracture or either hip. Procedure Note Efrain Guerra MD - 02/13/2016 Examination: Bilateral hips 2 views with AP pelvis History: Bilateral hip pain Findings: 2 views of each hip and an AP view the pelvis were performed without prior comparison. There is no acute fracture of the pelvis. Hip joint spaces are maintained. There is no acute fracture or either hip. IMPRESSION Normal bilateral hip joint spaces. Lian Garcia MD DIAGNOSTIC IMAGING O RDERABLES * VITAMIN D 25-HYDROXY D2+D3 BY TANDEM MASS (01/11/2015 7:36 AM DEDICATED OWNER OPERATOR) Only the most recent of2 resultswithin the time period is included. Vitamin D, 25 Hydroxy Total 44 30 - 100 ng/mL [facility] ([facility]) Comment: 25-OHD3 indicates both endogenous production and supplementation. 25-OHD2 is an indicator of exogenous sources, such as diet or supplementation. Therapy is based on measurement of Total 25-OHD, with levels <20 ng/mL indicative of Vitamin D deficiency, while levels between 20 ng/mL and 30 ng/mL suggest insufficiency. Optimal levels are > or = 30 ng/mL. Vitamin D, 25 Hydroxy D3 44 See Below ng/mL [facility] ([facility]) Comment:Reference Range: Not established Vitamin D, 25 Hydroxy D2 <4 See Below ng/mL [facility] ([facility]) Comment: Reference Range: Not established REPORT COMMENT: SPECIMEN TYPE->URINE Test Performed at: [facility] [address] [place], [place] ??[phone] VICKI ADDISON MD,FCAP Blood specimen (specimen) BLOOD SPECIMEN / Unknown 01/11/2015 7:36 AM DEDICATED OWNER OPERATOR 01/11/2015 7:37 AM DEDICATED OWNER OPERATOR Perez Cervantes MD LAB - CHEMISTRY GERA DAVID [facility] ([facility]) * PROTEIN 14-3-3 BLOOD (09/29/2014 9:00 AM DEDICATED OWNER OPERATOR) Only the most recent of3 resultswithin the time period is included. Pathologist [facility] 14.3.3 eta Protein <0.2 <0.2 ng/mL [facility] ([facility]) Comment: This test was developed and its performance characteristics have been determined by [facility]. It has not been cleared or approved by the U.S. Food and Drug Administration. The FDA has determined that such clearance or approval is not necessary. Performance characteristics refer to the analytical performance of the test. Test Performed at: [email or web address] [address] [place], [place] ??[address] ALYSA NG MD PHD 09/29/2014 9:00 AM DEDICATED OWNER OPERATOR 09/29/2014 9:05 AM DEDICATED OWNER OPERATOR Perez Cervantes MD LAB - CHEMISTRY ORDE RABLES Performing Organization Address City/[facility]/ZIP Co de Phone Number [facility] ([facility]) * SMOOTH MUSCLE ANTIBODY W REFLEX TITER (04/23/2014 7:46 AM CDT) [facility] Smooth Muscle Antibody Screen NEGATIVE NEGATIVE [facility] ([facility]) Comment: Test Performed at: [email or web address] ??[phone] ASPEN BRONSON MD 04/23/2014 7:46 AM CDT 04/23/2014 7:46 AM CDT Perez Cervantes MD LAB - SEROLOGY ORDER ADELAIDE [facility] ([facility]) * GGT (04/23/2014 7:46 AM CDT) Pathologist [facility] GGT 35 3 - 70 U/L [facility] ([facility]) Comment: Test Performed at: [email or web address] [facility] [address] [place], [place] ??[phone] ASPEN HOLLINGSWORTH DO,MPH Blood specimen (specimen) BLOOD SPECIMEN / Unknown 04/23/2014 7:46 AM CDT 04/23/2014 7:46 AM CDT Perez Cervantes MD LAB - CHEMISTRY GERA DAVID Performing Organization Address [facility] de Phone Number [facility] ([facility]) * MITOCHONDRIAL ANTIBODY SCREEN (03/23/2014 7:37 AM CDT) Pathologist [facility] Mitochondria M2 Antibody IgG <20.0 U [facility] ([facility]) Comment: Reference Range: NEGATIVE: < OR = 20.0 ?EQUIVOCAL: 20.1-24.9 ?POSITIVE: ??> OR = 25.0 REPORT COMMENT: SPECIMEN TYPE->URINE Test Performed at: [email or web address] [address] [place], [place] ??[address] ALYSA NG MD PHD Blood specimen (specimen) BLOOD SPECIMEN / Unknown 03/23/2014 7:37 AM CDT 03/23/2014 7:37 AM CDT Perez Cervantes MD LAB - CHEMISTRY GERA DAVID Performing Organization Address [facility] de Phone Number [facility] ([facility]) * HEPATITIS SCREEN ACUTE (03/23/2014 7:37 AM CDT) Only the most recent of2 resultswithin the time period is included. Pathologist [facility] Hepatitis A Virus Antibody IgM NON-REACTI VE NON-REACT ROMANA [facility] ([facility]) Hepatitis B Virus Surface Antigen NON-REACTI VE NON-REACT [facility]ANA [facility] ([facility]) Hepatitis B Core Virus Antibody IgM NON-REACTI VE NON-REACT ROMANA [facility] ([facility]) Hepatitis C Antibody NON-REACTI VE NON-REACT ROMANA [facility] ([facility]) Signal/Cutoff 0.07 <1.00 [facility] ([facility]) Comment: REPORT COMMENT: SPECIMEN TYPE->URINE Test Performed at: [email or web address] [facility] [id number] [place] [address] ??[phone] ASPEN HOLLINGSWORTH DO,MPH Blood specimen (specimen) BLOOD SPECIMEN / Unknown 03/23/2014 7:37 AM CDT 03/23/2014 7:37 AM CDT Perez Cervantes MD LAB - CHEMISTRY GERA DAVID [facility] Organization Address City/State/ZIP Co de Phone Number [facility] ([facility]) * YOSEF COMPREHENSIVE PLUS PROFILE (09/07/2013 7:48 AM CDT) Only the most recent of2 resultswithin the time period is included. YOSEF Screen NEGATIVE NEGATIVE [facility] ([facility]) Comment: A negative ANAchoice(TM) indicates the absence of detectable antibodies to component analytes consisting of dsDNA, Chromatin, SOURCE INSPECTOR, Sm/SOURCE INSPECTOR, Sm, SSA, SSB, Mary-1, Centromere B, Scl-70 and Ribosomal P. A negative ANAchoice(TM) should be interpreted in the context of the clinical and laboratory findings, and does not rule out autoimmune disease characterized by other autoantibody specificities including autoimmune hepatitis and primary biliary cirrhosis. Test Performed at: [email or web address] [address] [place], [place] ??[phone] ALYSA NG MD PHD YOSEF Pattern #1 TNP [facility] ([facility]) Comment: TNP-Reflex testing not required. Reference Ranges for Anti-Nuclear Ab Titer: ?? <1:40 ?Negative ?? 1:40-1:80 ??Low Antibody Level ?? >1:80 ?Elevated Antibody Level A positive YOSEF result may be seen in a variety of diseases and healthy individuals. Its interpretation depends on clinical findings and other laboratory data. Rheumatoid Factor 7 <14 IU/mL [facility] ([facility]) dsDNA Antibody Crithidia IFA NEGATIVE NEGATIVE [facility] ([facility]) Comment: This test was developed and its performance characteristics have been determined by [facility]. It has not been cleared or approved by the U.S. Food and Drug Administration. The FDA has determined that such clearance or approval is not necessary. Performance characteristics refer to the analytical performance of the test. dsDNA Antibody Crithidia Titer TNP-Reflex testing not required. [facility] ([facility]) Comment: SUSANNA Donaldson (SM) Antibody <1.0 NEG <1.0 NEGATIVE AI [facility] ([facility]) SM/SOURCE INSPECTOR Antibody <1.0 NEG <1.0 NEGATIVE AI [facility] ([facility]) Sjogren's Antibodies (SSA) <1.0 NEG <1.0 NEGATIVE AI [facility] ([facility]) Sjogren's Antibodies (SSB) <1.0 NEG <1.0 NEGATIVE AI [facility] ([facility]) SUSANNA SCL-70 Antibody <1.0 NEG <1.0 NEGATIVE AI [facility] ([facility]) 09/07/2013 7:48 AM CDT 09/07/2013 7:48 AM CDT Perez Cervantes MD LAB - CHEMISTRY GERA DAVID [facility] ([facility]) * HLA TYPING B27 (04/26/2013 8:02 AM CDT) Pathologist [facility] HLA-B27 NEGATIVE NEGATIVE [facility] ([facility]) Comment: REPORT COMMENT: SPECIMEN TYPE->URINE Test Performed at: [email or web address] [address] ??[phone] ASPEN HOLLINGSWORTH DO, MPH 04/26/2013 8:02 AM CDT 04/26/2013 8:03 AM CDT Perez Cervantes MD LAB - CHEMISTRY GERA DAVID Performing Organization Address City/[facility]/ZIP Co de Phone Number [facility] ([facility]) * LAB HISTORICAL RESULTS-ONBASE (02/20/2013) Only the most recent of2 resultswithin the time period is included. 02/20/2013 Narrative [facility] - 05/02/2013 3:30 PM CDT Historical Provider LAB - CHEMISTRY Hector COOK Performing Organization Address [facility]/ZIP Co de Phone Number [facility] [address] [place], [place] [id number] [place] [address] * T3 FREE (12/08/2012 3:38 PM DEDICATED OWNER OPERATOR) Pathologist [facility] T3 Free 3.3 2.3 - 4.2 pg/mL [facility] ([facility]) Comment: Test Performed at: [facility] [address] [place], [place] ??[phone] ASPEN HOLLINGSWORTH DO,MPH Venous blood specimen (specimen) 12/08/2012 3:38 PM DEDICATED OWNER OPERATOR 12/08/2012 3:39 PM DEDICATED OWNER OPERATOR Perez Cervantes MD LAB - CHEMISTRY GERA DAVID Performing Organization Address [facility] de Phone Number [facility] ([facility]) * ALDOLASE (12/08/2012 3:38 PM DEDICATED OWNER OPERATOR) Aldolase 3.1 < OR = 8.1 U/L [facility] ([facility]) Comment: REPORT COMMENT: SPECIMEN TYPE->URINE Test Performed at: [email or web address] [address] ??[phone] ASPEN HOLLINGSWORTH DO,MPH 12/08/2012 3:38 PM DEDICATED OWNER OPERATOR 12/08/2012 3:39 PM DEDICATED OWNER OPERATOR Perez Cervantes MD LAB - CHEMISTRY GERA DAVID Performing Organization Address [facility] de Phone Number [facility] ([facility]) * CK BLOOD (12/08/2012 3:38 PM DEDICATED OWNER OPERATOR) Pathologist [facility] CK Total 56 29 - 143 U/L [facility] ([facility]) Comment: Test Performed at: [facility] [address] ??[phone] ASPEN HOLLINGSWORTH DO,MPH Serum 12/08/2012 3:38 PM DEDICATED OWNER OPERATOR 12/08/2012 3:39 PM DEDICATED OWNER OPERATOR Perez Cervantes MD LAB - CHEMISTRY GERA DAVID Performing Organization Address [facility] de Phone Number [facility] ([facility]) * (ABNORMAL) TSH (12/08/2012 3:38 PM DEDICATED OWNER OPERATOR) TSH 0.28(L) mIU/L [facility] ([facility]) Comment: ?Reference Range ?> or = 20 Years ??0.40-4.50 ? Ranges ?First trimester ?0.26-2.66 ?Second trimester ?? 0.55-2.73 ?Third trimester ?0.43-2.91 Test Performed at: [email or web address] [address] [place], [place] ??[phone] ASPEN HOLLINGSWORTH DO,MPH Venous blood specimen (specimen) 12/08/2012 3:38 PM DEDICATED OWNER OPERATOR 12/08/2012 3:39 PM DEDICATED OWNER OPERATOR Perez Cervantes MD LAB - CHEMISTRY GERA DAVID Performing Organization Address [facility] de Phone Number [facility] ([facility]) * T4 FREE (12/08/2012 3:38 PM DEDICATED OWNER OPERATOR) [facility] T4 Free 1.2 0.8 - 1.8 ng/dL [facility] ([facility]) Comment: The current lot of free T4 reagent available from the seasonal sales associate produces results that are approximately 9% higher than previous reagent lots. Please interpret these results accordingly. Test Performed at: [email or web address] [address] ??[phone] ASPEN HOLLINGSWORTH DO,MPH Venous blood specimen (specimen) 12/08/2012 3:38 PM DEDICATED OWNER OPERATOR 12/08/2012 3:39 PM DEDICATED OWNER OPERATOR Perez Cervantes MD LAB - CHEMISTRY GERA DAVID Performing Organization Address [facility] de Phone Number [facility] ([facility]) * (ABNORMAL) MYCOPLASMA PNEUMO ANTIBODY IGG/IGM PANEL (11/11/2012 11:41 AM DEDICATED OWNER OPERATOR) [facility] Mycoplasma pneumoniae Antibody IgG EIA 1.69(H) <=0.90 ISR [facility] ([facility]) Comment: Reference Ranges: <=0.90 ? Negative - no Mycoplasma Pneumoniae ? Antibody detected 0.91-1.09 ??Equivocal >=1.10 ? Positive - Mycoplasma Pneumoniae ? Antibody detected A positive result indicates that the patient has antibody to Mycoplasma. ??It does not differentiate between an active or past infection. ??The clinical diagnosis must be interpreted in conjunction with the clinical signs and symptoms of the patient. Mycoplasma pneumoniae Antibody IgM 91 <770 U/mL [facility] ([facility]) Comment: Reference Range: ?<770 U/ml ?Negative 770-950 U/mL ?Low positive ?>950 U/mL ?Positive Test Performed at: [email or web address] ??[address] JUAREZ HOBBS MD Urine specimen (specimen) 11/11/2012 11:41 AM DEDICATED OWNER OPERATOR 11/11/2012 11:42 AM DEDICATED OWNER OPERATOR Perez Cervantes MD LAB - SEROLOGY ORDER ADELAIDE [facility] ([facility]) * (ABNORMAL) PARVOVIRUS B19 IGG/IGM AB PANEL (11/01/2012 1:01 PM DEDICATED OWNER OPERATOR) Parvovirus B19 Antibody IgG 3.9(H) <0.9 index [facility] ([facility]) Parvovirus B19 Antibody IgM 0.1 <0.9 index [facility] ([facility]) Comment: Reference range: IgG and IgM Index ?<0.9 ?? Negative 0.9-1.1 ?? Equivocal ?>1.1 ?? Positive Interpretation: NEGATIVE: ??No antibody detected. ??This ? individual may be susceptible to ? parvovirus B-19 infection. POSITIVE: ??Indicative of exposure to ? parvovirus B-19. EQUIVOCAL results are those results too close to the cut-off values to interpret. ??A second sample should be drawn in two weeks, if clinically indicated. Specific IgG persists for years, and provides lifetime immunity. ??A majority of adults show evidence of past infection. ??If definitive diagnosis of acute parvovirus infection is desired, a parvovirus B-19 IgM should be obtained. Due to the poor humoral immune response in the immunocompromised, the chronically anemic, and the fetus, both antibody and DNA PCR tests are recommended for definitive diagnosis of parvovirus B-19 infection in these patients. Test Performed at: [email or web address] ??[phone] JUAREZ HOBBS MD 11/01/2012 1:01 PM DEDICATED OWNER OPERATOR 11/01/2012 1:01 PM DEDICATED OWNER OPERATOR Perez Cervantes MD LAB - SEROLOGY ORDER ADELAIDE GERARDO ([facility]) Care Teams Human Factors Advisor Lead Relationship Specialty [place] [address] [address] PCP - General Family Medicine 03/27/24
--- OUTSIDE RECORDS SUMMARY | 2024-11-13 17:06 | XMS_ITS | Encounter Summary ---
Author Organization [facility] Address [address] [facility] [place] [address] Care Team Providers Care Outsole Flexer Name Role Phone Jaspreet Pearl MD Primary Care Provider + Encounter Details Date Type Department Care Team (Late Contact Info) Description 07/30/2023 Orders Only [facility] [address] [place] [phone] Perez Cervantes MD [address] [place] [address] [address] [address] Encounter for therapeutic drug monitoring; [...] Office Visit [facility] - Rheumatology [address] [place] [phone] Perez Cervantes MD [address] [place] [address] [address] [place] [phone] documented as of this encounter Procedures Procedure Name Priority Date/Time Associated Diagnosis Comments CULTURE URINE REFLEXED II 08/02/2023 7:23 AM CDT URINALYSIS W/MICROSCOPIC REFLEX TO CULTURE Routine 08/02/2023 7:23 AM CDT Encounter for therapeutic drug monitoring Polyarthritis C-REACTIVE PROTEIN Routine 08/02/2023 7: 23 AM CDT Encounter for therapeutic drug monitoring Polyarthritis CULTURE URINE 08/02/2023 7:23 AM CDT ERYTHROCYTE SEDIMENTATION RATE Routine 08/02/2023 7:23 AM CDT Encounter for therapeutic drug monitoring Polyarthritis CBC W AUTO DIFFERENTIAL Routine 08/02/2023 7:23 AM CDT Encounter for therapeutic drug monitoring Polyarthritis COMPREHENSIVE METABOLIC PANEL Routine 08/02/2023 7:23 AM CDT Encounter for therapeutic drug monitoring Polyarthritis documented in this encounter Results * CULTURE URINE (08/02/2023 7:23 AM CDT) Culture [facility] Comment: ??CULTURE, URINE, ROUTINE ?Micro Number: ?[id number] ??Test Status: ? Final ??Specimen Source: ?? Urine ??Specimen Quality: ??Adequate ??Result: ?Mixed genital erin isolated. These superficial ? bacteria are not indicative of a urinary tract ? infection. No further organism identification is ? warranted on this specimen. If clinically ? indicated, recollect clean-catch, mid-stream ? urine and transfer immediately to Urine Culture ? Transport Tube. REPORT COMMENT: FASTING:YES Test Performed at: [address] ??[address] NAVID SCOTT MD 08/02/2023 7:23 AM CDT 08/02/2023 7:23 AM CDT Perez Cervantes MD LAB - MICROBIOLOGY O JOEY Performing Organization Address [facility] Co de Phone Number [address] [address] * CULTURE URINE REFLEXED II (08/02/2023 7:23 AM CDT) Reflexive Urine Culture See Below [facility] Comment: CULTURE INDICATED - RESULTS TO FOLLOW Test Performed at: [facility] [address] ??[phone] NAVID SCOTT MD 08/02/2023 7:23 AM CDT 08/02/2023 7:23 AM CDT Perez Cervantes MD LAB - MICROBIOLOGY O JOEY Performing Organization Address [facility] Co de Phone Number [address] [address] * (ABNORMAL) URINALYSIS W/MICROSCOPIC REFLEX TO CULTURE (08/02/2023 7:23 AM CDT) Color UA YELLOW YELLOW [facility] Appearance CLEAR CLEAR [facility] Specific [place] UA 1.013 1.001 - 1.035 [facility] pH UA 6.0 5.0 - 8.0 [facility] Glucose UA NEGATIVE NEGATIVE [facility] Bilirubin UA NEGATIVE NEGATIVE [facility] Ketone UA NEGATIVE NEGATIVE [facility] Blood UA NEGATIVE NEGATIVE [facility] Protein UA NEGATIVE NEGATIVE [facility] Nitrite NEGATIVE NEGATIVE [facility] Leukocyte Esterase TRACE(A) NEGATIVE [facility] WBC UA NONE SEEN < [...] elements seen were reported. Test Performed at: [email or web address] ??[phone] NAVID SCOTT MD Urine URINE SPECIMEN OBTAINED BY CLEAN CATCH PROCEDURE / Unknown 08/02/2023 7:23 AM CDT 08/02/2023 7:23 AM CDT Perez Cervantes MD LAB - URINALYSIS ORD ERABLES Performing Organization Address [facility] Co de Phone Number [address] [address] * ERYTHROCYTE SEDIMENTATION RATE (08/02/2023 7:23 AM CDT) Erythrocyte Sedimentation Rate Westergren 11 < OR = 30 mm/h [facility] Comment: Test Performed at: [facility] [place] [address] [place], [place] ??[address] NAVID SCOTT MD Blood BLOOD SPECIMEN / Unknown 08/02/2023 7:23 AM CDT 08/02/2023 7:23 AM CDT Perez Cervantes MD LAB - HEMATOLOGY ORD ERABLES Performing Organization Address [facility] Co de Phone Number [address] [address] * C-REACTIVE PROTEIN (08/02/2023 7:23 AM CDT) C-Reactive Protein 2.4 <8.0 mg/L [facility] Comment: Test Performed at: [facility] [place] [address] [place], [place] ??[address] NAVID SCOTT MD Blood BLOOD SPECIMEN / Unknown 08/02/2023 7:23 AM CDT 08/02/2023 7:23 AM CDT Perez Cervantes MD LAB - CHEMISTRY ORDE JOANN Performing Organization Address [facility] Co de Phone Number [address] [address] * COMPREHENSIVE METABOLIC PANEL (08/02/2023 7:23 AM CDT) Pathologist [facility] Glucose 83 65 - 99 mg/dL [facility] Comment: ? Fasting reference interval BUN 13 7 - 25 mg/dL [facility] Creatinine 0.75 0.50 - 1.05 mg/dL [facility] eGFR by Cystatin C 91 > OR = 60 mL/min/1. 73m2 [facility] BUN/Creatinine Ratio SEE NOTE: (calc) [facility] Comment: ?? Not Reported: BUN and Creatinine are within ?? reference range. ? Sodium 139 135 - 146 mmol/L [facility] Potassium 4.4 3.5 - 5.3 mmol/L [facility] Chloride 103 98 - 110 mmol/L [facility] CO2 28 20 - 32 mmol/L [facility] Calcium 9.5 8.6 - 10.4 mg/dL [facility] Protein Total 7.1 6.1 - 8.1 g/dL [facility] Albumin 4.2 3.6 - 5.1 g/dL [facility] Globulin Total 2.9 1.9 - 3.7 g/dL (calc) [facility] Albumin/Globulin Ratio 1.4 1.0 - 2.5 (calc) [facility] Bilirubin Total 0.4 0.2 - 1.2 mg/dL [facility] Alkaline Phosphatase 101 37 - 153 U/L [facility] AST 19 10 - 35 U/L [facility] ALT 19 6 - 29 U/L [facility] Comment: Test Performed at: [facility] [address] ??[phone] NAVID SCOTT MD Blood BLOOD SPECIMEN / Unknown 08/02/2023 7:23 AM CDT 08/02/2023 7:23 AM CDT Perez Cervantes MD LAB - CHEMISTRY GERA DAVID [facility] [address] [place] [address] * CBC WITH DIFFERENTIAL (08/02/2023 7:23 AM CDT) Pathologist [facility] White Blood Cell Count 5.8 3.8 - 10.8 Thousand/u L [facility] RBC 4.18 3.80 - 5.10 Million/uL [facility] Hemoglobin 12.7 11.7 - 15.5 g/dL [facility] Hematocrit 38.9 35.0 - 45.0 % [facility] MCV 93.1 80.0 - 100.0 fL [facility] MCH 30.4 27.0 - 33.0 pg [facility] MCHC 32.6 32.0 - 36.0 g/dL [facility] RDW 14.5 11.0 - 15.0 % [facility] Platelet Count 225 140 - 400 Thousand/u L [facility] MPV 10.6 7.5 - 12.5 fL [facility] Neutrophil Absolute 3074 1500 - 7800 cells/uL [facility] Absolute Bands [facility] Metamyelocytes Absolute [facility] Myelocytes Absolute [facility] Absolute Prolymphocytes [facility] Lymphocytes Absolute 2071 850 - 3900 cells/uL [facility] Absolute Monocytes 580 200 - 950 cells/uL [facility] Eosinophils Absolute 58 15 - 500 cells/uL [facility] Basophils Absolute 17 0 - 200 cells/uL [facility] Absolute Blasts [facility] nRBC Absolute [facility] Granulocytes % 53 % [facility] Band Neutrophil [facility] Metamyelocytes [facility] Myelocytes [facility] Promyelocytes [facility] Lymphocytes % 35.7 % [facility] Lymphocyte Reactive [facility] Monocytes % 10.0 % [facility] Eosinophils % 1.0 % [facility] Basophils % 0.3 % [facility] Comment: Test Performed at: [employer] [place], [place] ??[address] NAVID SCOTT MD Blasts [facility] nRBC [facility] Comments [facility] Comment: Test Performed at: [employer] [place], [place] ??[address] NAVID SCOTT MD Blood BLOOD SPECIMEN / Unknown 08/02/2023 7:23 AM CDT 08/02/2023 7:23 AM CDT Perez Cervantes MD LAB - HEMATOLOGY ORD [facility] [address] [place] [address] documented in this encounter Visit Diagnoses Diagnosis Encounter for therapeutic drug monitoring Polyarthritis Unspecified polyarthropathy or polyarthritis, site unspecified documented in this encounter Care Teams Outsole Flexer Relationship Specialty Start Date End Date Jaspreet Pearl MD PCP - General 08/08/18 03/26/24 documented as of this encounter
--- OUTSIDE RECORDS SUMMARY | 2024-11-13 17:06 | XMS_ITS | Encounter Summary ---
Author Organization [facility] Address [address] [facility] [place] [address] Care Team Providers Care Sales Training Coordinator Name Role Phone Dayanara Plaza MD Primary Care Provider [phone] Reason for Visit * Reason Onset Date Comments MEDICATION REFILL 10/16/2024 Encounter Details Date Type Department Care Team (Late st Contact Info) Description 10/16/2024 Refill [facility] - Rheumatology [address] [place] [address], [facility] [place] [phone] Christian Pemberton MD [address] [place] [address] [place] [phone] MEDICATION REFILL Social History Tobacco Use Types [...] encounter Miscellaneous Notes * Telephone Encounter - Yakelin Mota - 10/16/2024 10:26 AM CST Refill Request Hans Pascual NICK: 09/25/2024 NOV due: 03/27/2025 LRF: 07/11/2024 Qty Disp: 90 # of refills: 3 Allergies: Allergies Allergen Reactions Levaquin [Levofloxacin] Nausea and/or Vomiting and Psychiatric hallucinations Pended Medication Order: Requested Prescriptions Pending Prescriptions Disp Refills Enbrel 50 MG/ML prefilled syringe 12 mL 0 Sig: Inject 50 (fifty) mg subcutaneously every 7 days FORCE MANAGEMENT ANALYST documented in this encounter Plan of Treatment Upcoming Encounters Date Type Department Care Team (Late st Contact Info) Description 03/27/2025 1:00 PM CDT Office Visit [facility] - Rheumatology [address] [place] [address], [place] [phone] Perez Cervantes MD [address] [place] [address] [place] [phone] documented as of this encounter Visit Diagnoses Diagnosis Polyarthritis Unspecified polyarthropathy or polyarthritis, site unspecified documented in this encounter Care Teams Sales Training Coordinator Relationship Specialty [place] [id number] [phone] PCP - General Family Medicine 03/27/24 documented as of this encounter
--- OUTSIDE RECORDS SUMMARY | 2024-11-13 17:06 | XMS_ITS | Encounter Summary ---
Author Organization [facility] Address [address] [facility] [place] [address] Care Team Providers Care Non Destructive Testing Specialist Name Role Phone Jaspreet Pearl MD Primary Care Provider + Reason for Visit * Reason Onset Date Comments Medical Clearance 09/06/2023 Encounter Details Date Type Department Care Team (Late st Contact Info) Description 09/06/2023 Telephone [facility] - Centralized Scheduling [address] [place] [phone] Perez Cervantes MD [facility] [place] [address] Medical Clearance Social History Tobacco Use Types Packs/Day Years [...] Telephone Encounter - Lashae Castelan RN - 09/06/2023 2:34 PM CDT Images from the original note were not included. Perez Cervantes MD You 1 hour ago (1:28 PM) TM FAX over the notes. I do not perform clearance for surgery. Has to be PMD. Dr. Cervantes NICK notes faxed with confirmation to [phone]. * Telephone Encounter - Lashae Castelan RN - 09/06/2023 12:52 PM CDT Images from the original note were not included. Bharti Perera Clinical Staff 1 minute ago (12:49 PM) RA MG FROM DR JURADO OFFICE, PT PODIATRICS AND SHE IS NEEDING A CLEARANCE LETTER AND CLINICAL NOTES FROM PT'S LAST APPT WITH DR CERVANTES. IF THEY CAN BE FAXED OVER TO [phone] WITH ATTENTION TO HARITHA. PLEASE ADVISE [phone] EX:[id number], IS THE TELEPHONE TO REACH HARITHA Pt is currently scheduled 09/10/23 at [facility] for Endoscopic Plantar Fascia Release Right Foot. Dr. Riley Thompson's office requesting rheumatology clearance letter, please advise. documented in this encounter Plan of Treatment Upcoming Encounters Date Type Department Care Team (Late st Contact Info) Description 03/27/2025 1:00 PM CDT Office Visit [facility] - Rheumatology [address] [place] [address], [place] [phone] Perez Cervantes MD [address] [place] [address] [address] [place] [address] documented as of this encounter Visit Diagnoses Not on filedocumented in this encounter Care Teams Non Destructive Testing Specialist Relationship Specialty Start Date End Date Jaspreet Pearl MD PCP - General 08/08/18 03/26/24 documented as of this encounter
--- OUTSIDE RECORDS SUMMARY | 2024-11-13 17:06 | XMS_ITS | Encounter Summary ---
Author Organization [facility] Address [address] [facility] [place] [address] Care Team Providers Care Rf Test Technician Name Role Phone Jaspreet Pearl MD Primary Care Provider + Reason for Visit * Reason Comments Refill Request Encounter Details Date Type Department Care Team (Late st Contact Info) Description 01/03/2023 Refill [facility] [address] [place] [address], [place] [address] Perez Cervantes MD [address] [place] [address] [place] [address] Refill Request Social History Tobacco [...] * Telephone Encounter - Jaelyn Dewitt - 01/04/2023 10:32 AM CST Refill Request Hans Pascual NICK: 09/01/2022 NOV scheduled: 03/02/2023 LRF: 05/05/2021 Qty Disp: 96 # of refills: 3 Refill Request Hans Pascual NICK: 09/01/2022 NOV scheduled: 03/02/2023 LRF: 11/24/2021 Qty Disp:360 # of refills:3 Allergies: Allergies Allergen Reactions ??? Levaquin [Levofloxacin] Nausea and/or Vomiting and Psychiatric hallucinations Pended Medication Order: Requested Prescriptions Pending Prescriptions Disp Refills ??? methotrexate 2.5 MG tablet [Pharmacy Med Name: METHOTREXATE TAB 2.5MG] 96 tablet 3 Sig: TAKE 8 TABLETS EVERY 7 DAYS ??? nabumetone (Relafen) 500 MG tablet [Pharmacy Med Name: NABUMETONE TABS 500MG] 360 tablet 3 Sig: TAKE 2 TABLETS TWICE A DAY Allergies: Allergies Allergen Reactions ??? Levaquin [Levofloxacin] Nausea and/or Vomiting and Psychiatric hallucinations Pended Medication Order: Requested Prescriptions Pending Prescriptions Disp Refills ??? methotrexate 2.5 MG tablet [Pharmacy Med Name: METHOTREXATE TAB 2.5MG] 96 tablet 3 Sig: TAKE 8 TABLETS EVERY 7 DAYS ??? 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 documented in this encounter Plan of Treatment Upcoming Encounters Date Type Department Care Team (Late st Contact Info) Description 03/27/2025 1:00 PM CDT Office Visit [facility] - Rheumatology [address] [place] [address], [place] [address] Perez Cervantes MD [address] [place] [address] DIV [place] [address] documented as of this encounter Visit Diagnoses Not on filedocumented in this encounter Care Teams Rf Test Technician Relationship Specialty Start Date End Date Jaspreet Pearl MD PCP - General 08/08/18 03/26/24 documented as of this encounter
--- OUTSIDE RECORDS SUMMARY | 2024-11-13 17:06 | XMS_ITS | Encounter Summary ---
Author Organization [facility] Address [address] [facility] [place] [address] Care Team Providers Care Genetic Supervisor Name Role Phone Jaspreet Pearl MD Primary Care Provider + Encounter Details Date Type Department Care Team (Late st Contact Info) Description 02/14/2024 Orders Only [facility] - Rheumatology [address] [place] [phone] Perez Cervantes MD [address] [place] [address] 2[place] [address] Social History Tobacco Use Types [...] Office Visit [facility] - Rheumatology [address] [place] [phone] Perez Cervantes MD [address] [place] [address] [address] [place] [phone] documented as of this encounter Procedures Procedure Name Priority Date/Time Associated Diagnosis Comments CULTURE URINE REFLEXED III 02/14/2024 7:33 AM CDT URINALYSIS W/MICROSCOPIC REFLEX TO CULTURE 02/14/2024 7:33 AM CDT C-REACTIVE PROTEIN 02/14/2024 7: 33 AM CDT ERYTHROCYTE SEDIMENTATION RATE 02/14/2024 7:33 AM CDT CBC W AUTO DIFFERENTIAL 02/14/2024 7:33 AM CDT COMPREHENSIVE METABOLIC PANEL 02/14/2024 7:33 AM CDT documented in this encounter Results * C-REACTIVE PROTEIN (02/14/2024 7:33 AM CDT) C-Reactive Protein 3.0 <8.0 mg/L [facility] Comment: REPORT COMMENT: FASTING:YES Test Performed at: [facility] [address] ??[address] NAVID SCOTT MD 02/14/2024 7:33 AM CDT 02/14/2024 7:33 AM CDT Perez Cervantes MD LAB - CHEMISTRY GERA DAVID [facility] Organization Address City/State/ZIP Co de Phone Number [address] [address] * CULTURE URINE REFLEXED III (02/14/2024 7:33 AM CDT) Reflexive Urine Culture See Below [facility] Comment: NO CULTURE INDICATED Test Performed at: [email or web address] ??[address] NAVID SCOTT MD 02/14/2024 7:33 AM CDT 02/14/2024 7:33 AM CDT Perez Cervantes MD LAB - MICROBIOLOGY O RDERABLES Performing Organization Address [facility] Co de Phone Number [address] [address] * URINALYSIS W/MICROSCOPIC REFLEX TO CULTURE (02/14/2024 7:33 AM CDT) Color UA YELLOW YELLOW [facility] Appearance CLEAR CLEAR [facility] Specific [place] UA 1.020 1.001 - 1.035 [facility] pH UA < [...] elements seen were reported. Test Performed at: [email or web address] ??[address] NAVID SCOTT MD 02/14/2024 7:33 AM CDT 02/14/2024 7:33 AM CDT Perez Cervantes MD LAB - URINALYSIS ORD ERABLES Performing Organization Address [facility] Co de Phone Number [address] [address] * (ABNORMAL) CBC WITH DIFFERENTIAL (02/14/2024 7:33 AM CDT) White Blood Cell Count 4.7 3.8 - 10.8 Thousand/ uL [facility] RBC 4.02 3.80 - 5.10 Million/u L [facility] Hemoglobin 12.7 11.7 - 15.5 g/dL [facility] Hematocrit 37.8 35.0 - 45.0 % [facility] MCV 94.0 80.0 - 100.0 fL [facility] MCH 31.6 27.0 - 33.0 pg [facility] MCHC 33.6 32.0 - 36.0 g/dL [facility] RDW 17.0(H) 11.0 - 15.0 % [facility] Platelet Count 204 140 - 400 Thousand/ uL [facility] MPV 10.7 7.5 - 12.5 fL [facility] Neutrophil Absolute 2261 1500 - 7800 cells/uL [facility] Absolute Bands [facility] Metamyelocytes Absolute [facility] Myelocytes Absolute [facility] Absolute Prolymphocytes [facility] Lymphocytes Absolute 1894.1 850 - 3900 cells/uL [facility] Absolute Monocytes 428 200 - 950 cells/uL [facility] Eosinophils Absolute 99 15 - 500 cells/uL [facility] Basophils Absolute 19 0 - 200 cells/uL [facility] Absolute Blasts [facility] nRBC Absolute [facility] Granulocytes % 48.1 % [facility] Band Neutrophil [facility] Metamyelocytes [facility] Myelocytes [facility] Promyelocytes [facility] Lymphocytes % 40.3 % [facility] Lymphocyte Reactive [facility] Monocytes % 9.1 % [facility] Eosinophils % 2.1 % [facility] Basophils % 0.4 % [facility] Comment: Test Performed at: [email or web address] [place], [place] ??[address] NAVID SCOTT MD Blasts [facility] nRBC [facility] Comments [facility] Comment: Test Performed at: [facility] [address] [place], [place] ??[address] NAVID SCOTT MD 02/14/2024 7:33 AM CDT 02/14/2024 7:33 AM CDT Perez Cervantes MD LAB - HEMATOLOGY ORD ERABLES Performing Organization Address [facility] de Phone Number [facility] [address] [place] [address] * ERYTHROCYTE SEDIMENTATION RATE (02/14/2024 7:33 AM CDT) Erythrocyte Sedimentation Rate Westergren 9 < OR = 30 mm/h [facility] Comment: Test Performed at: [email or web address] [place], [place] ??[address] NAVID SCOTT MD 02/14/2024 7:33 AM CDT 02/14/2024 7:33 AM CDT Perez Cervantes MD LAB - HEMATOLOGY ORD ERABLES Performing Organization Address [facility] Co de Phone Number [facility] [address] [place] [address] * COMPREHENSIVE METABOLIC PANEL (02/14/2024 7:33 AM CDT) Glucose 89 65 - 99 mg/dL [facility] Comment: ? Fasting reference interval BUN 17 7 - 25 mg/dL [facility] Creatinine 0.77 0.50 - 1.05 mg/dL [facility] eGFR by Cystatin C 88 > OR = 60 mL/min/1. 73m2 [facility] BUN/Creatinine Ratio SEE NOTE: 6 - 22 (calc) [facility] Comment: ?? Not Reported: BUN and Creatinine are within ?? reference range. ? Sodium 139 135 - 146 mmol/L [facility] Potassium 4.3 3.5 - 5.3 mmol/L [facility] Chloride 105 98 - 110 mmol/L [facility] CO2 29 20 - 32 mmol/L [facility] Calcium 9.7 8.6 - 10.4 mg/dL [facility] Protein Total 7.1 6.1 - 8.1 g/dL [facility] Albumin 4.3 3.6 - 5.1 g/dL [facility] Globulin Total 2.8 1.9 - 3.7 g/dL (calc) [facility] Albumin/Globulin Ratio 1.5 1.0 - 2.5 (calc) [facility] Bilirubin Total 0.3 0.2 - 1.2 mg/dL [facility] Alkaline Phosphatase 89 37 - 153 U/L [facility] AST 16 10 - 35 U/L [facility] ALT 15 6 - 29 U/L [facility] Comment: Test Performed at: [facility] [address] ??[phone] NAVID SCOTT MD 02/14/2024 7:33 AM CDT 02/14/2024 7:33 AM CDT Perez Cervantes MD LAB - CHEMISTRY GERA DAVID [facility] [address] [place] [address] documented in this encounter Visit Diagnoses Not on filedocumented in this encounter Care Teams Genetic Supervisor Relationship Specialty Start Date End Date Jaspreet Pearl MD PCP - General 08/08/18 03/26/24 documented as of this encounter
--- OUTSIDE RECORDS SUMMARY | 2024-11-13 17:06 | XMS_ITS | Encounter Summary ---
Author Organization [facility] Health Address [address] [place] [address] Care Team Providers Care Jingle Writer Name Role Phone Dayanara Plaza MD Primary Care Provider [phone] Reason for Visit * Reason Onset Date Comments MEDICATION REFILL 10/19/2024 Encounter Details Date Type Department Care Team (Late st Contact Info) Description 10/19/2024 Refill [facility] - Rheumatology [address] [place] [address], [facility] [place] [phone] Perez Cervantes MD [address] [place] [address] [place] [address] MEDICATION REFILL Social History Tobacco [...] * Telephone Encounter - Yakelin Mota - 10/19/2024 1:54 PM CST Refill Request Hans Pascual NICK: 09/25/2024 NOV scheduled: 03/27/2025 LRF: 08/16/2024 Qty Disp: 12 mL # of refills: 3 Allergies: Allergies Allergen Reactions Levaquin [Levofloxacin] Nausea and/or Vomiting and Psychiatric hallucinations Pended Medication Order: Requested Prescriptions Pending Prescriptions Disp Refills Enbrel 50 MG/ML prefilled syringe 12 mL 3 Sig: Inject 50 (fifty) mg subcutaneously every 7 days INER documented in this encounter Plan of Treatment Upcoming Encounters Date Type Department Care Team (Late st Contact Info) Description 03/27/2025 1:00 PM CDT Office Visit [facility] - Rheumatology [address] [place] [address], [place] [phone] Perez Cervantes MD [address] [place] [address] [place] [phone] documented as of this encounter Visit Diagnoses Diagnosis Polyarthritis Unspecified polyarthropathy or polyarthritis, site unspecified documented in this encounter Care Teams Jingle Writer Relationship Specialty [place] [address] [address] PCP - General Family Medicine 03/27/24 documented as of this encounter
--- OUTSIDE RECORDS SUMMARY | 2024-11-13 17:06 | XMS_ITS | Encounter Summary ---
Author Organization [facility] Health Address [address] [facility] [place] [address] Care Team Providers Care Polarity Tester Name Role Phone Dayanara Plaza MD Primary Care Provider [phone] Reason for Visit * Reason Onset Date Comments MEDICATION REFILL 07/21/2024 Encounter Details Date Type Department Care Team (Late st Contact Info) Description 07/21/2024 Refill [facility] - Rheumatology [address] [place] [address], [facility] [place] [address] Latha Steele MD [address] [place] [address] [place] [address] MEDICATION REFILL Social History Tobacco [...] encounter Miscellaneous Notes * Telephone Encounter - Dante Varghese LPN - 07/21/2024 10:26 AM CDT Refill Request Hans Pascual NICK: 03/27/24 NOV due: NOV scheduled: 09/25/24 LRF: 04/20/24 Qty Disp: 90 # of refills: 3 Labs: 07/04/24 Allergies: Allergies Allergen Reactions Levaquin [Levofloxacin] Nausea and/or Vomiting and Psychiatric hallucinations Pended Medication Order: Requested Prescriptions Pending Prescriptions Disp Refills folic acid (Folvite) 1 MG tablet 90 tablet 3 Sig: Take 1 (one) tablet by mouth once daily documented in this encounter Plan of Treatment Upcoming Encounters Date Type Department Care Team (Late st Contact Info) Description 03/27/2025 1:00 PM CDT Office Visit [facility] - Rheumatology [address] [place] [address], [facility] [place] [phone] Perez Cervantes MD [address] [place] [address] [place] [phone] documented as of this encounter Visit Diagnoses Diagnosis Polyarthritis Unspecified polyarthropathy or polyarthritis, site unspecified documented in this encounter Care Teams Polarity Tester Relationship Specialty [place] [address] [address] PCP - General Family Medicine 03/27/24 documented as of this encounter
--- OUTSIDE RECORDS SUMMARY | 2024-11-13 17:06 | XMS_ITS | Encounter Summary ---
Author Organization [facility] Address [address] [place] [address] Care Team Providers Care Certified Surgical Tech/First Assistant Name Role Phone Jaspreet Pearl MD Primary Care Provider + Encounter Details Date Type Department Care Team (Late Contact Info) Description 06/04/2023 Orders Only [facility] [address] [place] [phone] Perez Cervantes MD [address] [place] [address] [address] [address] Encounter for therapeutic drug monitoring; [...] Office Visit [facility] - Rheumatology [address] [place] [phone] Perez Cervantes MD [address] [place] [address] [address] [place] [phone] documented as of this encounter Procedures Procedure Name Priority Date/Time Associated Diagnosis Comments CULTURE URINE REFLEXED II 06/07/2023 8:01 AM CDT URINALYSIS W/MICROSCOPIC REFLEX TO CULTURE Routine 06/07/2023 8:01 AM CDT Encounter for therapeutic drug monitoring Polyarthritis C-REACTIVE PROTEIN Routine 06/07/2023 8: 01 AM CDT Encounter for therapeutic drug monitoring Polyarthritis CULTURE URINE 06/07/2023 8:01 AM CDT ERYTHROCYTE SEDIMENTATION RATE Routine 06/07/2023 8:01 AM CDT Encounter for therapeutic drug monitoring Polyarthritis CBC W AUTO DIFFERENTIAL Routine 06/07/2023 8:01 AM CDT Encounter for therapeutic drug monitoring Polyarthritis COMPREHENSIVE METABOLIC PANEL Routine 06/07/2023 8:01 AM CDT Encounter for therapeutic drug monitoring Polyarthritis documented in this encounter Results * CULTURE URINE (06/07/2023 8:01 AM CDT) Culture [facility] Comment: ??CULTURE, URINE, ROUTINE ?Micro Number: ?[id number] ??Test Status: ? Final ??Specimen Source: ?? Urine ??Specimen Quality: ??Adequate ??Result: ?Less than 10,000 CFU/mL of single Gram negative ? organism isolated. No further testing will be ? performed. If clinically indicated, recollection ? using a method to minimize contamination, with ? prompt transfer to Urine Culture Transport Tube, ? is recommended. REPORT COMMENT: FASTING:YES Test Performed at: [address] ??[address] NAVID SCOTT MD 06/07/2023 8:01 AM CDT 06/07/2023 8:01 AM CDT Perez Cervantes MD LAB - MICROBIOLOGY O JOEY Performing Organization Address [facility] Co de Phone Number [address] [address] * CULTURE URINE REFLEXED II (06/07/2023 8:01 AM CDT) Reflexive Urine Culture See Below [facility] Comment: CULTURE INDICATED - RESULTS TO FOLLOW Test Performed at: [address] ??[address] NAVID SCOTT MD 06/07/2023 8:01 AM CDT 06/07/2023 8:01 AM CDT Perez Cervantes MD LAB - MICROBIOLOGY O JOEY Performing Organization Address [facility] Co de Phone Number [address] [address] * (ABNORMAL) URINALYSIS W/MICROSCOPIC REFLEX TO CULTURE (06/07/2023 8:01 AM CDT) Color UA YELLOW YELLOW [facility] Appearance CLEAR CLEAR [facility] Specific [place] UA 1.019 1.001 - 1.035 [facility] pH UA 6.0 [...] elements seen were reported. Test Performed at: [email or web address] ??[address] NAVID SCOTT MD Urine URINE SPECIMEN OBTAINED BY CLEAN CATCH PROCEDURE / Unknown 06/07/2023 8:01 AM CDT 06/07/2023 8:01 AM CDT Perez Cervantes MD LAB - URINALYSIS ORD ERABLES Performing Organization Address [facility]/ZIP Co de Phone Number [address] [address] * ERYTHROCYTE SEDIMENTATION RATE (06/07/2023 8:01 AM CDT) Erythrocyte Sedimentation Rate Westergren 11 < OR = 30 mm/h [facility] Comment: Test Performed at: [facility] [address] [place], [place] ??[address] NAVID SCOTT MD Blood BLOOD SPECIMEN / Unknown 06/07/2023 8:01 AM CDT 06/07/2023 8:01 AM CDT Perez Cervantes MD LAB - HEMATOLOGY ORD DANITA Performing Organization Address [facility] Co de Phone Number [address] [address] * C-REACTIVE PROTEIN (06/07/2023 8:01 AM CDT) C-Reactive Protein 2.2 <8.0 mg/L [facility] Comment: Test Performed at: [facility] [place] [address] [place], [place] ??[address] NAVID SCOTT MD Blood BLOOD SPECIMEN / Unknown 06/07/2023 8:01 AM CDT 06/07/2023 8:01 AM CDT Perez Cervantes MD LAB - CHEMISTRY GERA DAVID Performing Organization Address [facility] Co de Phone Number [address] [address] * COMPREHENSIVE METABOLIC PANEL (06/07/2023 8:01 AM CDT) Pathologist [facility] Glucose 85 65 - 99 mg/dL [facility] Comment: ? Fasting reference interval BUN 16 7 - 25 mg/dL [facility] Creatinine 0.82 0.50 - 1.05 mg/dL [facility] eGFR by Cystatin C 82 > OR = 60 mL/min/1. 73m2 [facility] Comment: The eGFR is based on the CKD-EPI 2020 equation. To calculate the new eGFR from a previous Creatinine or Cystatin C result, go to https://www.kidney.org/professionals/ kdoqi/gfr%5Fcalculator BUN/Creatinine Ratio NOT APPLICABLE 6 - (calc) [facility] Sodium 138 135 - 146 mmol/L [facility] Potassium 4.6 3.5 - 5.3 mmol/L [facility] Chloride 104 98 - 110 mmol/L [facility] CO2 27 20 - 32 mmol/L [facility] Calcium 9.4 8.6 - 10.4 mg/dL [facility] Protein Total 6.8 6.1 - 8.1 g/dL [facility] Albumin 4.1 3.6 - 5.1 g/dL [facility] Globulin Total 2.7 1.9 - 3.7 g/dL (calc) [facility] Albumin/Globuli n Ratio 1.5 1.0 - 2.5 (calc) [facility] Bilirubin Total 0.4 0.2 - 1.2 mg/dL [facility] Alkaline Phosphatase 95 37 - 153 U/L [facility] AST 22 10 - 35 U/L [facility] ALT 28 6 - 29 U/L [facility] Comment: Test Performed at: [facility] [address] ??[address] NAVID SCOTT MD Blood BLOOD SPECIMEN / Unknown 06/07/2023 8:01 AM CDT 06/07/2023 8:01 AM CDT Perez Cervantes MD LAB - CHEMISTRY GERA DAVID [facility] [address] [place] [address] * CBC WITH DIFFERENTIAL (06/07/2023 8:01 AM CDT) [facility] White Blood Cell Count 4.3 3.8 - 10.8 Thousand/u L [facility] RBC 4.01 3.80 - 5.10 Million/uL [facility] Hemoglobin 12.3 11.7 - 15.5 g/dL [facility] Hematocrit 37.5 35.0 - 45.0 % [facility] MCV 93.5 80.0 - 100.0 fL [facility] MCH 30.7 27.0 - 33.0 pg [facility] MCHC 32.8 32.0 - 36.0 g/dL [facility] RDW 14.2 11.0 - 15.0 % [facility] Platelet Count 206 140 - 400 Thousand/u L [facility] MPV 10.6 7.5 - 12.5 fL [facility] Neutrophil Absolute 1823 1500 - 7800 cells/uL [facility] Absolute Bands [facility] Metamyelocytes Absolute [facility] Myelocytes Absolute [facility] Absolute Prolymphocytes [facility] Lymphocytes Absolute 1836 850 - 3900 cells/uL [facility] Absolute Monocytes 533 200 - 950 cells/uL [facility] Eosinophils Absolute 99 15 - 500 cells/uL [facility] Basophils Absolute 9 0 - 200 cells/uL [facility] Absolute Blasts [facility] nRBC Absolute [facility] Granulocytes % 42.4 % [facility] Band Neutrophil [facility] Metamyelocytes [facility] Myelocytes [facility] Promyelocytes [facility] Lymphocytes % 42.7 % [facility] Lymphocyte Reactive [facility] Monocytes % 12.4 % [facility] Eosinophils % 2.3 % [facility] Basophils % 0.2 % [facility] Comment: Test Performed at: [facility] [place], [place] ??[address] NAVID SCOTT MD Blasts [facility] nRBC [facility] Comments [facility] Comment: Test Performed at: [facility] [employer] [place] ??[address] NAVID SCOTT MD Blood BLOOD SPECIMEN / Unknown 06/07/2023 8:01 AM CDT 06/07/2023 8:01 AM CDT Perez Cervantes MD LAB - HEMATOLOGY ORD ERABLES [facility] [address] [place] [address] documented in this encounter Visit Diagnoses Diagnosis Encounter for therapeutic drug monitoring Polyarthritis Unspecified polyarthropathy or polyarthritis, site unspecified documented in this encounter Care Teams Certified Surgical Tech/First Assistant Relationship Specialty Start Date End Date Jaspreet Pearl MD PCP - General 08/08/18 03/26/24 documented as of this encounter
--- OUTSIDE RECORDS SUMMARY | 2024-11-13 17:06 | XMS_ITS | Encounter Summary ---
Author Organization [facility] Address [address] [place] [address] Care Team Providers Care Utility Worker Forge Name Role Phone Dayanara Plaza MD Primary Care Provider [phone] Encounter Details Date Type Department Care Team (Late st Contact Info) Description 07/04/2024 Orders Only [facility] - Rheumatology [address] [place] [phone] Perez Cervantes MD [address] [place] [address] 2[place] [address] Social History Tobacco Use Types [...] Visit [facility] - Rheumatology [address] [place] [phone] Perez Cervantes MD [address] [place] [address] [address] [place] [phone] documented as of this encounter Procedures Procedure Name Priority Date/Time Associated Diagnosis Comments CULTURE URINE REFLEXED II 07/04/2024 7:36 AM CDT URINALYSIS W/MICROSCOPIC REFLEX TO CULTURE 07/04/2024 7:36 AM CDT C-REACTIVE PROTEIN 07/04/2024 7: 36 AM CDT CULTURE URINE 07/04/2024 7:36 AM CDT ERYTHROCYTE SEDIMENTATION RATE 07/04/2024 7:36 AM CDT CBC W AUTO DIFFERENTIAL 07/04/2024 7:36 AM CDT COMPREHENSIVE METABOLIC PANEL 07/04/2024 7:36 AM CDT documented in this encounter Results * CULTURE URINE (07/04/2024 7:36 AM CDT) Culture [facility] Comment: ??CULTURE, URINE, ROUTINE ?Micro Number: ?[id number] ??Test Status: ? Final ??Specimen Source: ?? Urine ??Specimen Quality: ??Adequate ??Result: ?Mixed genital erin isolated. These superficial ? bacteria are not indicative of a urinary tract ? infection. No further organism identification is ? warranted on this specimen. If clinically ? indicated, recollect clean-catch, mid-stream ? urine and transfer immediately to Urine Culture ? Transport Tube. REPORT COMMENT: FASTING:YES Test Performed at: [email or web address] ??[address] NAVID SCOTT MD 07/04/2024 7:36 AM CDT 07/04/2024 7:37 AM CDT Perez Cervantes MD LAB - MICROBIOLOGY O JOEY Performing Organization Address [facility] Co de Phone Number [address] [address] * C-REACTIVE PROTEIN (07/04/2024 7:36 AM CDT) C-Reactive Protein <3.0 <8.0 mg/L [facility] Comment: Test Performed at: [email or web address] [address] ??[address] NAVID SCOTT MD 07/04/2024 7:36 AM CDT 07/04/2024 7:37 AM CDT Perez Cervantes MD LAB - CHEMISTRY ORDSagar DAVID Performing Organization Address [facility] de Phone Number [address] [address] * CULTURE URINE REFLEXED II (07/04/2024 7:36 AM CDT) Reflexive Urine Culture See Below [facility] Comment: CULTURE INDICATED - RESULTS TO FOLLOW Test Performed at: [email or web address] ??[address] NAVID SCOTT MD 07/04/2024 7:36 AM CDT 07/04/2024 7:37 AM CDT Perez Cervantes MD LAB - MICROBIOLOGY O JOEY Performing Organization Address [facility] de Phone Number [address] [address] * (ABNORMAL) URINALYSIS W/MICROSCOPIC REFLEX TO CULTURE (07/04/2024 7:36 AM CDT) Color UA DARK YELLOW YELLOW [facility] Appearance CLOUDY(A) CLEAR [facility] Specific [place] UA 1.024 1.001 - 1.035 [facility] pH UA < OR = 5.0 5.0 - 8.0 [facility] Glucose UA NEGATIVE NEGATIVE [facility] Bilirubin UA NEGATIVE NEGATIVE [facility] Ketone UA TRACE(A) NEGATIVE [facility] Blood UA NEGATIVE NEGATIVE [facility] Protein UA NEGATIVE NEGATIVE [facility] Nitrite NEGATIVE NEGATIVE [facility] Leukocyte Esterase 1+(A) NEGATIVE [facility] WBC UA NONE SEEN < OR = 5 /HPF [facility] RBC UA NONE SEEN < OR = 2 /HPF [facility] Epithelial Cell UA 10-20(A) < OR = 5 /HPF [facility] Bacteria UA FEW(A) NONE SEEN /HPF [facility] Hyaline Casts NONE SEEN NONE SEEN /LPF [facility] Note See Below [facility] Comment: This urine was analyzed for the presence of WBC, RBC, bacteria, casts, and other formed elements. Only those elements seen were reported. Test Performed at: [email or web address] ??[address] NAVID SCOTT MD 07/04/2024 7:36 AM CDT 07/04/2024 7:37 AM CDT Perez Cervantes MD LAB - URINALYSIS ORD ERABLES [address] [address] * (ABNORMAL) CBC WITH DIFFERENTIAL (07/04/2024 7:36 AM CDT) White Blood Cell Count 3.4(L) 3.8 - 10.8 Thousand/ uL [facility] RBC 3.92 3.80 - 5.10 Million/u L [facility] Hemoglobin 12.5 11.7 - 15.5 g/dL [facility] Hematocrit 39.3 35.0 - 45.0 % [facility] MCV 100.3(H) 80.0 - 100.0 fL [facility] MCH 31.9 27.0 - 33.0 pg [facility] MCHC 31.8(L) 32.0 - 36.0 g/dL [facility] RDW 14.5 11.0 - 15.0 % [facility] Platelet Count 217 140 - 400 Thousand/ uL [facility] MPV 10.2 7.5 - 12.5 fL [facility] Neutrophil Absolute 1510 1500 - 7800 cells/uL [facility] Absolute Bands [facility] Metamyelocytes Absolute [facility] Myelocytes Absolute [facility] Absolute Prolymphocytes [facility] Lymphocytes Absolute 1411 850 - 3900 cells/uL [facility] Absolute Monocytes 408 200 - 950 cells/uL [facility] Eosinophils Absolute 61 15 - 500 cells/uL [facility] Basophils Absolute 10 0 - 200 cells/uL [facility] Absolute Blasts [facility] nRBC Absolute [facility] Granulocytes % 44.4 % [facility] Band Neutrophil [facility] Metamyelocytes [facility] Myelocytes [facility] Promyelocytes [facility] Lymphocytes % 41.5 % [facility] Lymphocyte Reactive [facility] Monocytes % 12.0 % [facility] Eosinophils % 1.8 % [facility] Basophils % 0.3 % [facility] Comment: Test Performed at: [email or web address] ??[address] NAVID SCOTT MD Blasts [facility] nRBC [facility] Comments [facility] Comment: Test Performed at: [email or web address] [address] ??[address] NAVID SCOTT MD 07/04/2024 7:36 AM CDT 07/04/2024 7:37 AM CDT Perez Cervantes MD LAB - HEMATOLOGY ORD ERABLES Performing Organization Address [facility] de Phone Number [facility] [address] [place] [address] * ERYTHROCYTE SEDIMENTATION RATE (07/04/2024 7:36 AM CDT) Pathologist [facility] Erythrocyte Sedimentation Rate Westergren 14 < OR = 30 mm/h [facility] Comment: Test Performed at: [email or web address] [address] ??[address] NAVID SCOTT MD 07/04/2024 7:36 AM CDT 07/04/2024 7:37 AM CDT Perez Cervantes MD LAB - HEMATOLOGY ORD ERABLES Performing Organization Address [facility] de Phone Number [facility] [address] [place] [address] * COMPREHENSIVE METABOLIC PANEL (07/04/2024 7:36 AM CDT) Pathologist [facility] Glucose 89 65 - 99 mg/dL [facility] Comment: ? Fasting reference interval BUN 13 7 - 25 mg/dL [facility] Creatinine 0.72 0.50 - 1.05 mg/dL [facility] eGFR by Cystatin C 95 > OR = 60 mL/min/1. 73m2 [facility] BUN/Creatinine Ratio SEE NOTE: (calc) [facility] Comment: ?? Not Reported: BUN and Creatinine are within ?? reference range. ? Sodium 142 135 - 146 mmol/L [facility] Potassium 4.3 3.5 - 5.3 mmol/L [facility] Chloride 107 98 - 110 mmol/L [facility] CO2 27 20 - 32 mmol/L [facility] Calcium 9.4 8.6 - 10.4 mg/dL [facility] Protein Total 7.2 6.1 - 8.1 g/dL [facility] Albumin 4.2 3.6 - 5.1 g/dL [facility] Globulin Total 3.0 1.9 - 3.7 g/dL (calc) [facility] Albumin/Globulin Ratio 1.4 1.0 - 2.5 (calc) [facility] Bilirubin Total 0.4 0.2 - 1.2 mg/dL [facility] Alkaline Phosphatase 84 37 - 153 U/L [facility] AST 19 10 - 35 U/L [facility] ALT 16 6 - 29 U/L [facility] Comment: Test Performed at: [facility] [address] [place] [address] ??[phone] NAVID SCOTT MD 07/04/2024 7:36 AM CDT 07/04/2024 7:37 AM CDT Perez Cervantes MD LAB - CHEMISTRY GERA DAVID [facility] Organization Address City/State/ZIP Co de Phone Number [facility] [address] [place] [address] documented in this encounter Visit Diagnoses Not on filedocumented in this encounter Care Teams Utility Worker Forge Relationship Specialty [place] [address] [phone] PCP - General Family Medicine 03/27/24 documented as of this encounter
--- OUTSIDE RECORDS SUMMARY | 2024-11-13 17:06 | XMS_ITS | Encounter Summary ---
Author Organization [facility] Health Address [address] [facility] [place] [address] Care Team Providers Care Bottom Bleacher Name Role Phone Jaspreet Pearl MD Primary Care Provider + Reason for Visit * Reason Onset Date Comments LABS ONLY 10/01/2023 Encounter Details Date Type Department Care Team (Late st Contact Info) Description 10/01/2023 Telephone [facility] - Rheumatology [address] [place] [address], [place] [address] Perez Cervantes MD [address] [place] [address] [place] [address] LABS ONLY Social History Tobacco Use Types Packs/Day Years [...] encounter Miscellaneous Notes * Telephone Encounter - Perez Cervantes MD - 10/01/2023 12:55 PM CST LFTs elevated ALT 19 to 90/AST 19 to 57. Had surgery 2 weeks ago and took hydrocodone for 7 days. Will recheck in 10 days. Discussed with patient. Perez Cervantes MD, FACP, FAAP, MACR Dental Director and Pediatric Rheumatology Professor of Internal Medicine,Pediatrics, and Molecular Immunology [facility] NCIAL SERVICES ASSISTANT documented in this encounter Plan of Treatment Upcoming Encounters Date Type Department Care Team (Late st Contact Info) Description 03/27/2025 1:00 PM CDT Office Visit [facility] - Rheumatology [address] [place] [address], [place] [phone] Perez Cervantes MD [address] [place] [address] [address] DIV OF R[place]UM[place] [phone] documented as of this encounter Visit Diagnoses Not on filedocumented in this encounter Care Teams Bottom Bleacher Relationship Specialty Start Date End Date Jaspreet Pearl MD PCP - General 08/08/18 03/26/24 documented as of this encounter
--- OUTSIDE RECORDS SUMMARY | 2024-11-13 17:06 | XMS_ITS | Encounter Summary ---
Author Organization [facility] Health Address [address] [facility] [place] [address] Care Team Providers Care Operation Research Analyst Name Role Phone Dayanara Plaza MD Primary Care Provider [phone] Encounter Details Date Type Department Care Team (Latest Contact Info) Description 09/25/2024 2:32 PM EXPLOSIVE ORDNANCE HANDLER - 09/25/2024 11:59 PM [facility] Hospital Encounter [facility] DIAGNOSTIC RAD OP [address] [place] [address] Perez Cervantes MD [address] [place] [address] Discharge Disposition: Home or Self [...] End Date Azelastine HCl 137 MCG/SPRAY SOLN [place] 2 sprays into the nose 2 times daily dicyclomine (BENTYL) 20 MG tablet Take 1 (one) tablet by mouth as needed estradiol (Estrace) 0.1 MG/GM vaginal cream Insert into the vagina once daily 10/26/2023 fexofenadine (Arabella) 180 MG tablet Take 1 (one) tablet by mouth every 24 hours folic acid (Folvite) 1 MG tabletIndications:P olyarthritis Take 1 (one) tablet by mouth once daily 90 tablet 3 07/21/2024 07/21/2025 methotrexate 2.5 MG tablet TAKE 8 TABLETS [...] (one) tablet by mouth once daily 03/04/2024 Enbrel 50 MG/ML prefilled syringeIndications: Polyarthritis Inject 50 (fifty) mg subcutaneously every 7 days 12 mL 07/11/2024 10/16/2024 documented as of this encounter Plan of Treatment Upcoming Encounters Date Type Department Care Team (Late st Contact Info) Description 03/27/2025 1:00 PM CDT Office Visit [facility] - Rheumatology [address] [place] [address], [place] [address] Perez Cervantes MD [address] [place] [address] [place] [address] documented as of this encounter Procedures Procedure Name Priority Date/Time Associated Diagnosis Comments XR CHEST 2VW Routine 09/25/2024 2:53 PM EXPLOSIVE ORDNANCE HANDLER Encounter for therapeutic drug monitoring documented in this encounter Results * XR Chest 2Vw (09/25/2024 2:53 PM EXPLOSIVE ORDNANCE HANDLER) Anatomical Region Laterality Modality Chest Digital Radiogra phy 09/25/2024 8:41 PM EXPLOSIVE ORDNANCE HANDLER Impressions 09/25/2024 8:41 PM EXPLOSIVE ORDNANCE HANDLER IMPRESSION: No acute cardiopulmonary abnormalities. > Interpreting Provider: Cheryl Cespedes MD on 09/25/2024 8:41 PM Narrative 09/25/2024 8:41 PM EXPLOSIVE ORDNANCE HANDLER PROCEDURE: ??XR CHEST 2VW DATE/TIME OF EXAM: [...] monitoring documented in this encounter Care Teams Operation Research Analyst Relationship Specialty [place] [address] [address] PCP - General Family Medicine 03/27/24 documented as of this encounter
--- OUTSIDE RECORDS SUMMARY | 2024-11-13 17:06 | XMS_ITS | Encounter Summary ---
Author Organization [facility] Health Address [address] [facility] [place] [address] Care Team Providers Care Automobile Body Repairer Helper Name Role Phone Jaspreet Pearl MD Primary Care Provider + Reason for Visit * Reason Onset Date Comments Medication Issue 05/17/2023 Encounter Details Date Type Department Care Team (Late st Contact Info) Description 05/17/2023 Telephone [facility] - Rheumatology [address] [place] [address], [facility] [place] [address] Perez Cervantes MD [address] [place] [address] [place] [address] Medication Issue Social History Tobacco Use Types Packs/Day Years [...] Telephone Encounter - Perez Cervantes MD - 05/17/2023 11:43 AM CDT Labs stable. Will reduce MTX to 15 mg/week with labs after 2 doses. Left message. Perez Cervantes MD, FACP, FAAP, MACR Police Specialist and Pediatric Rheumatology Professor of Internal Medicine,Pediatrics, and Molecular Immunology [facility] C documented in this encounter Plan of Treatment Upcoming Encounters Date Type Department Care Team (Late st Contact Info) Description 03/27/2025 1:00 PM CDT Office Visit [facility] - Rheumatology [address] [place] [address], [place] [address] Perez Cervantes MD [address] [place] [address] [place] [address] documented as of this encounter Visit Diagnoses Not on filedocumented in this encounter Care Teams Automobile Body Repairer Helper Relationship Specialty Start Date End Date Jaspreet Pearl MD PCP - General 08/08/18 03/26/24 documented as of this encounter
--- OUTSIDE RECORDS SUMMARY | 2024-11-13 17:06 | XMS_ITS | Encounter Summary ---
Author Organization [facility] Address [address] [facility] [place] [address] Care Team Providers Care Process Server Name Role Phone Dayanara Plaza MD Primary Care Provider [phone] Encounter Details Date Type Department Care Team (Late st Contact Info) Description 10/25/2024 Orders Only [facility] - Rheumatology [address] [place] [phone] Perez Cervantes MD [address] [place] [address] 2[place] [address] Social History Tobacco Use Types [...] Office Visit [facility] - Rheumatology [address] [place] [phone] Perez Cervantes MD [address] [place] [address] [address] [place] [phone] documented as of this encounter Procedures Procedure Name Priority Date/Time Associated Diagnosis Comments QUANTIFERON-TB GOLD PLUS 1-TUBE 10/25/2024 7:42 AM PATIENT PLACEMENT COORDINATOR CULTURE URINE REFLEXED II 10/25/2024 7:39 AM PATIENT PLACEMENT COORDINATOR CULTURE URINE 10/25/2024 7:39 AM PATIENT PLACEMENT COORDINATOR documented in this encounter Results * QUANTIFERON-TB GOLD PLUS 1-TUBE (10/25/2024 7:42 AM PATIENT PLACEMENT COORDINATOR) QuantiFERON TB Gold Plus NEGATIVE NEGATIVE [facility] [...] T-lymphocytes. For additional information, please refer to https://[email or web address]/faq/ETG860 (This link is being provided for informational/ educational purposes only.) Test Performed at: [facility] [place] [place] ??[phone] NAVID SCOTT MD 10/25/2024 7:42 AM PATIENT PLACEMENT COORDINATOR 10/25/2024 7:42 AM PATIENT PLACEMENT COORDINATOR Perez Cervantes MD LAB - CHEMISTRY [facility] Organization Address City/State/ZIP Co de Phone Number [facility] [phone] [place] [address] * CULTURE URINE (10/25/2024 7:39 AM PATIENT PLACEMENT COORDINATOR) Culture [facility] Comment: ??CULTURE, URINE, ROUTINE ?Micro Number: ?[id number] ??Test Status: ? Final ??Specimen Source: ?? Urine ??Specimen Quality: ??Adequate ??Result: ?No Growth REPORT COMMENT: FASTING:YES Test Performed at: [address] ??[phone] NAVID SCOTT MD 10/25/2024 7:39 AM PATIENT PLACEMENT COORDINATOR 10/25/2024 7:40 AM PATIENT PLACEMENT COORDINATOR Perez Cervantes MD LAB - MICROBIOLOGY O JHOANERAEMMANUEL Performing Organization Address [facility] de Phone Number [address] [address] * CULTURE URINE REFLEXED II (10/25/2024 7:39 AM PATIENT PLACEMENT COORDINATOR) Reflexive Urine Culture See Below [facility] Comment: CULTURE INDICATED - RESULTS TO FOLLOW Test Performed at: [employer] [address] ??[phone] NAVID SCOTT MD 10/25/2024 7:39 AM PATIENT PLACEMENT COORDINATOR 10/25/2024 7:40 AM PATIENT PLACEMENT COORDINATOR Perez Cervantes MD LAB - MICROBIOLOGY O RDDANITA Performing Organization Address [facility] de Phone Number [address] [address] documented in this encounter Visit Diagnoses Not on filedocumented in this encounter Care Teams Process Server Relationship Specialty [place] [address] [address] PCP - General Family Medicine 03/27/24 documented as of this encounter
--- OUTSIDE RECORDS SUMMARY | 2024-11-13 17:06 | XMS_ITS | Encounter Summary ---
Author Organization [facility] Address [address] [facility] [place] [address] Care Team Providers Care Air Pumper Name Role Phone Jaspreet Pearl MD Primary Care Provider + Encounter Details Date Type Department Care Team (Late Contact Info) Description 02/12/2023 Orders Only [facility] [address] [place] [phone] Perez Cervantes MD [address] [place] [address] 2[place] [address] Encounter for therapeutic drug monitoring; [...] Office Visit [facility] - Rheumatology [address] [place] [phone] Perez Cervantes MD [address] [place] [address] [address] [place] [address] documented as of this encounter Visit Diagnoses Diagnosis Encounter for therapeutic drug monitoring Polyarthritis Unspecified polyarthropathy or polyarthritis, site unspecified documented in this encounter Care Teams Air Pumper Relationship Specialty Start Date End Date Jaspreet Pearl MD PCP - General 08/08/18 03/26/24 documented as of this encounter
--- OUTSIDE RECORDS SUMMARY | 2024-11-13 17:06 | XMS_ITS | Encounter Summary ---
Author Organization [facility] Health Address [address] [facility] [place] [address] Care Team Providers Care Licensed Chemical Spray Technician Name Role Phone Dayanara Plaza MD Primary Care Provider [phone] Reason for Visit * Reason Onset Date Comments Medication Prior Auth Request 07/12/2024 En brel Encounter Details Date Type Department Care Team (Late st Contact Info) Description 07/12/2024 Telephone [facility] - Rheumatology [address] [place] [address], [facility] [place] [address] Perez Cervantes MD [address] [place] [address] [place] [address] Medication Prior Auth Request (Enbrel) Social History Tobacco Use Types Packs/Day Years [...] Miscellaneous Notes * Telephone Encounter - Mario Bolton CPhT - 07/13/2024 9:54 AM CDT Medication Prior Authorization Medication: Enbrel 50MG/ML prefilled syringe Status: Approved through 07/13/2025 Submitted via: Insurance: [employer]: [phone] * Telephone Encounter - Mario Bolton CPhT - 07/12/2024 9:32 AM CDT Medication Prior Authorization Medication: Enbrel 50MG/ML prefilled syringe Status: Submitted - Pending Submitted via: Insurance: [facility]: [phone] documented in this encounter Plan of Treatment Upcoming Encounters Date Type Department Care Team (Late st Contact Info) Description 03/27/2025 1:00 PM CDT Office Visit [facility] - Rheumatology [address] [place] [address], [place] [address] Perez Cervantes MD [address] [place] [address] [place] [phone] documented as of this encounter Visit Diagnoses Not on filedocumented in this encounter Care Teams Licensed Chemical Spray Technician Relationship Specialty [place] [address] [address] PCP - General Family Medicine 03/27/24 documented as of this encounter
--- OUTSIDE RECORDS SUMMARY | 2024-11-13 17:06 | XMS_ITS | Encounter Summary ---
Author Organization [facility] Address [address] [place] [address] Care Team Providers Care Montessori Program Director Name Role Phone Jaspreet Pearl MD Primary Care Provider + Encounter Details Date Type Department Care Team (Latest Contact Info) Description 09/01/2022 Travel Social History Tobacco Use Types Packs/Day [...] Office Visit [facility] - Rheumatology [address] [place] [address], [place] [address] Perez Cervantes MD [address] [place] [address] [address] [place] [phone] documented as of this encounter Visit Diagnoses Not on filedocumented in this encounter Care Teams Montessori Program Director Relationship Specialty Start Date End Date Jaspreet Pearl MD PCP - General 08/08/18 03/26/24 documented as of this encounter
--- OUTSIDE RECORDS SUMMARY | 2024-11-13 17:06 | XMS_ITS | Encounter Summary ---
Author Organization [facility] Address [address] [facility] [place] [address] Care Team Providers Care Lithographic Printing Machinist Name Role Phone Dayanara Plaza MD Primary Care Provider [phone] Reason for Visit * Reason Comments Refill Request Encounter Details Date Type Department Care Team (Late st Contact Info) Description 04/20/2024 Refill [facility] - Rheumatology [address] [place] [address], [place] [address] Perez Cervantes MD [address] [place] [address] [place] [address] Refill Request Social History Tobacco [...] Telephone Encounter - Lashae Castelan RN - 04/20/2024 1:39 PM CDT Refill Request Hans Pascual NICK: 03/27/24 NOV due: NOV scheduled: 09/25/2024 LRF: 04/02/23 Qty Disp: 30 # of refills: 11 Labs: 02/14/24 Allergies: Allergies Allergen Reactions Levaquin [Levofloxacin] Nausea and/or Vomiting and Psychiatric hallucinations Pended Medication Order: Requested Prescriptions Pending Prescriptions Disp Refills folic acid (Folvite) 1 MG tablet [Pharmacy Med Name: FOLIC ACID 1MG] 90 tablet 3 Sig: TAKE 1 TABLET BY MOUTH DAILY documented in this encounter Plan of Treatment Upcoming Encounters Date Type Department Care Team (Late st Contact Info) Description 03/27/2025 1:00 PM CDT Office Visit [facility] - Rheumatology [address] [place] [address], [place] [phone] Perez Cervantes MD [address] [place] [address] [place] [phone] documented as of this encounter Visit Diagnoses Diagnosis Polyarthritis Unspecified polyarthropathy or polyarthritis, site unspecified documented in this encounter Care Teams Lithographic Printing Machinist Relationship Specialty [place] [address] [phone] PCP - General Family Medicine 03/27/24 documented as of this encounter
--- OUTSIDE RECORDS SUMMARY | 2024-11-13 17:06 | XMS_ITS | Encounter Summary ---
Author Organization [facility] Address [address] [place] [address] Care Team Providers Care Assembling Machine Operator Name Role Phone Dayanara Plaza MD Primary Care Provider Encounter Details Date Type Department Care Team (Late Contact Info) Description 07/07/2024 Orders Only [facility] - Rheumatology [address] [place] [phone] Perez Cervantes MD [address] [place] [address] [place] [address] Polyarthritis; Encounter for therapeutic drug [...] Visit [facility] - Rheumatology [address] [place] [phone] Perez Cervantes MD [address] [place] [address] documented as of this encounter Visit Diagnoses Diagnosis Polyarthritis Unspecified polyarthropathy or polyarthritis, site unspecified Encounter for therapeutic drug monitoring Encounter for long-term (current) use of medications Encounter for long-term (current) use of other medications documented in this encounter Care Teams Assembling Machine Operator Relationship Specialty [place] [address] [address] PCP - General Family Medicine 03/27/24 documented as of this encounter
--- OUTSIDE RECORDS SUMMARY | 2024-11-13 17:06 | XMS_ITS | Encounter Summary ---
Author Organization [facility] Health Address [address] [facility] [address] Care Team Providers Care Millroom Supervisor Name Role Phone Jaspreet Pearl MD Primary Care Provider + Reason for Visit * Reason Onset Date Comments Medication Prior Auth Request 01/07/2023 En brel - approved Encounter Details Date Type Department Care Team (Late st Contact Info) Description 01/07/2023 Telephone [facility] [address] [place] [address], [place] [address] Perez Cervantes MD [address] [place] [address] [place] [address] Medication Prior Auth Request (Enbrel - approved) Social History Tobacco Use Types Packs/Day Years [...] Telephone Encounter - Lashae Castelan RN - 01/07/2023 2:55 PM CST Submitted PA via [facility] Portal for Enbrel 50 mg / ml syringes (4 syringe / 28 days). Pt name: Hans Pascual Villeda: [id number] PA Dx: M06.9 Rheumatoid arthritis Current Meds: MTX 20 mg weekly, Nabumetone 1000 mg BID, Enbrel 50 mg / ml PFS weekly (4 PFS / 28 days) Approval received from [employer], Enbrel 50 mg / ml PFS. Approved from 01/25/23 - 01/26/24. ODITY LEAD documented in this encounter Plan of Treatment Upcoming Encounters Date Type Department Care Team (Late st Contact Info) Description 03/27/2025 1:00 PM CDT Office Visit [facility] - Rheumatology [address] [place] [address], [place] [phone] Perez Cervantes MD [address] [place] [address] [place] [phone] documented as of this encounter Visit Diagnoses Not on filedocumented in this encounter Care Teams Millroom Supervisor Relationship Specialty Start Date End Date Jaspreet Pearl MD PCP - General 08/08/18 03/26/24 documented as of this encounter
--- OUTSIDE RECORDS SUMMARY | 2024-11-13 17:06 | XMS_ITS | Encounter Summary ---
Author Organization [facility] Address [address] [facility] [place] [address] Care Team Providers Care Furnace Tender Name Role Phone Jaspreet Pearl MD Primary Care Provider + Encounter Details Date Type Department Care Team (Latest Contact Info) Description 08/31/2023 Travel Social History Tobacco Use Types Packs/Day [...] Office Visit [facility] - Rheumatology [address] [place] [address], [place] [phone] Perez Cervantes MD [address] [place] [address] 2[address] [place] [phone] documented as of this encounter Visit Diagnoses Not on filedocumented in this encounter Care Teams Furnace Tender Relationship Specialty Start Date End Date Jaspreet Pearl MD [phone] (work) PCP - General 08/08/18 03/26/24 documented as of this encounter
--- OUTSIDE RECORDS SUMMARY | 2024-11-13 17:07 | XMS_ITS | Encounter Summary ---
Author Organization [facility] Address [address] [facility] [place] [address] Care Team Providers Care Tax Staff Accountant Name Role Phone Jaspreet Pearl MD Primary Care Provider + Encounter Details Date Type Department Care Team (Late Contact Info) Description 05/15/2022 Orders Only [facility] [address] [place] [phone] Perez Cervantes MD [address] [place] [address] [address] [place] [address] Social History Tobacco Use Types Packs/Day Years Used Date Smoking Tobacco: Former Cigarettes Q uit: 11/15/1998 Smokeless Tobacco: Never Alcohol Use Standard Drinks/Week Comments No 0 (1 standard drink = 0.6 oz pur e alcohol) PHQ-2 Answer Date Recorded PHQ2 TOTAL SCORE 0 12/08/2021 Sex and Gender Information Value Date Recorded Sex Assigned at Not on file Gender Identity Not on file Sexual Orientation Not on file documented as of this encounter Plan of Treatment Upcoming Encounters Date Type Department Care Team (Late Contact Info) Description 03/27/2025 1:00 PM CDT Office Visit [facility] - Rhe[facility]ology [address] [place] [address] [phone] Perez Cervantes MD [address] [place] [address] [address] [place] [phone] documented as of this encounter Procedures Procedure Name Priority Date/Time Associated Diagnosis Comments CULTURE URINE REFLEXED 10:29 AM CDT URINALYSIS W/MICROSCOPIC REFLEX TO CULTURE 05/15/2022 10:29 AM CDT C-REACTIVE PROTEIN 05/15/2022 10 :29 AM CDT CULTURE URINE 05/15/2022 10:29 AM CDT ERYTHROCYTE SEDIMENTATION RATE 05/15/2022 10:29 AM CDT CBC W AUTO DIFFERENTIAL 05/15/2022 10:29 AM CDT COMPREHENSIVE METABOLIC PANEL 05/15/2022 10:29 AM CDT documented in this encounter Results * (ABNORMAL) CULTURE URINE (05/15/2022 10:29 AM CDT) Culture (A) [facility] Comment: ??CULTURE, URINE, ROUTINE ?Micro Number: ?[id number] ??Test Status: ? Final ??Specimen Source: ?? Urine ??Specimen Quality: ??Adequate ??Result: ?50,000-100,000 CFU/mL of Enterococcus faecalis ??COMMENT: ? Additional non-predominating organism(s) isolated. ? These organisms, commonly found on external and ? internal genitalia, are considered colonizers. No ? further testing performed. ?E.faecalis ?INT ?? MELINDA ?? AMPICILLIN ? S ? <=2 ?? NITROFURANTOIN ? S ? <=16 ?? VANCOMYCIN ? S ? 1 S=Susceptible ??I=Intermediate ??R=Resistant ??* = Not Tested NR = Not Reported ??NN = See Therapy Comments REPORT COMMENT: FASTING:YES Test Performed at: [facility] ??[phone] ASPEN HOLLINGSWORTH DO,MPH 05/15/2022 10:2 9 AM CDT 05/15/2022 10:34 AM CDT Perez Cervantes MD LAB - MICROBIOLOGY O JOEY Performing Organization Address [facility] de Phone Number [facility] [address] [place] [address] * CULTURE URINE REFLEXED (05/15/2022 10:29 AM CDT) Reflexive Urine Culture See Below [facility] Comment: CULTURE INDICATED - RESULTS TO FOLLOW Test Performed at: [facility] ??[phone] ASPEN HOLLINGSWORTH DO,MPH 05/15/2022 10:2 9 AM CDT 05/15/2022 10:34 AM CDT Perez Cervantes MD LAB - MICROBIOLOGY O JOEY Performing Organization Address [facility] de Phone Number [facility] [address] [place] [address] * C-REACTIVE PROTEIN (05/15/2022 10:29 AM CDT) C-Reactive Protein 2.5 <8.0 mg/L [facility] Comment: Test Performed at: [employer] [address] [facility] [place] ??[phone] ASPEN HOLLINGSWORTH DO,MPH 05/15/2022 10:2 9 AM CDT 05/15/2022 10:34 AM CDT Perez Cervantes MD LAB - CHEMISTRY GERA DAVID Performing Organization Address City/[facility]/ZIP Co de Phone Number [facility] [phone] [place] [address] * CBC WITH DIFFERENTIAL (05/15/2022 10:29 AM CDT) White Blood Cell Count 4.2 3.8 - 10.8 Thousand/u L [facility] RBC 4.17 3.80 - 5.10 Million/uL [facility] Hemoglobin 13.0 11.7 - 15.5 g/dL [facility] Hematocrit 39.9 35.0 - 45.0 % [facility] MCV 95.7 80.0 - 100.0 fL [facility] MCH 31.2 27.0 - 33.0 pg [facility] MCHC 32.6 32.0 - 36.0 g/dL [facility] RDW 14.4 11.0 - 15.0 % [facility] Platelet Count 192 140 - 400 Thousand/u L [facility] MPV 11.1 7.5 - 12.5 fL [facility] Neutrophil Absolute 2633 1500 - 7800 cells/uL [facility] Lymphocytes Absolute 1235 850 - 3900 cells/uL [facility] Absolute Monocytes 269 200 - 950 cells/uL [facility] Eosinophils Absolute 42 15 - 500 cells/uL [facility] Basophils Absolute 21 0 - 200 cells/uL [facility] Granulocytes % 62.7 % [facility] Lymphocytes % 29.4 % [facility] Monocytes % 6.4 % [facility] Eosinophils % 1.0 % [facility] Basophils % 0.5 % [facility] Comment: Test Performed at: [facility] [address] [place] ??[phone] NAVID SCOTT MD 05/15/2022 10:2 9 AM CDT 05/15/2022 10:34 AM CDT Perez Cervantes MD LAB - HEMATOLOGY ORD DANITA [facility] [address] [place] [address] * ERYTHROCYTE SEDIMENTATION RATE (05/15/2022 10:29 AM CDT) Erythrocyte Sedimentation Rate Westergren 19 < OR = 30 mm/h [facility] Comment: Test Performed at: [facility] ??[phone] NAVID SCOTT MD 05/15/2022 10:2 9 AM CDT 05/15/2022 10:34 AM CDT Perez Cervantes MD LAB - HEMATOLOGY ORD ERABLES Performing Organization Address [facility] de Phone Number [facility] [address] [place] [address] * (ABNORMAL) URINALYSIS W/MICROSCOPIC REFLEX TO CULTURE (05/15/2022 10:29 AM CDT) Color UA DARK YELLOW YELLOW [facility] Appearance CLEAR CLEAR [facility] Specific [place] UA 1.021 1.001 - 1.035 [facility] pH UA 6.0 5.0 - 8.0 [facility] Glucose UA NEGATIVE NEGATIVE [facility] Bilirubin UA NEGATIVE NEGATIVE [facility] Ketone UA NEGATIVE NEGATIVE [facility] Blood UA NEGATIVE NEGATIVE [facility] Protein UA TRACE(A) NEGATIVE [facility] Nitrite NEGATIVE NEGATIVE [facility] Leukocyte Esterase 1+(A) NEGATIVE [facility] WBC UA 0-5 < OR = 5 /HPF [facility] RBC UA NONE SEEN < OR = 2 /HPF [facility] Epithelial Cell UA 0-5 < OR = 5 /HPF [facility] Transitional Epithelial Cells [facility] Renal Epithelial Cells [facility] Bacteria UA NONE SEEN NONE SEEN /HPF [facility] Calcium Oxalate Crystals [facility] Triple Phosphate Crystals [facility] Uric Acid Crystals [facility] Amorphous UA [facility] Crystals UA [facility] Hyaline Casts NONE SEEN NONE SEEN /LPF [facility] Comment: Test Performed at: [employer] [address] [place] ??[phone] ASPEN HOLLINGSWORTH DO,MPH Granular Casts [facility] Casts UA [facility] Yeast [facility] Comments [facility] Note [facility] Comment: Test Performed at: [employer] [address] [place], [place] ??[address] ASPEN HOLLINGSWORTH DO,MPH 05/15/2022 10:2 9 AM CDT 05/15/2022 10:34 AM CDT Perez Cervantes MD LAB - URINALYSIS ORD ERABLES Performing Organization Address [facility]/State/ZIP Co de Phone Number [facility] [phone] [place] [address] * (ABNORMAL) COMPREHENSIVE METABOLIC PANEL (05/15/2022 10:29 AM CDT) Glucose 86 65 - 99 mg/dL [facility] Comment: ? Fasting reference interval BUN 17 7 - 25 mg/dL [facility] Creatinine 0.78 0.50 - 1.05 mg/dL [facility] Comment: For patients >49 years of age, the reference limit for Creatinine is approximately 13% higher for people identified as -Cambodian. eGFR by MDRD 83 > OR = 60 mL/min/1 .73m2 [facility] eGFR by MDRD 96 > OR = 60 mL/min/1 .73m2 [facility] BUN/Creatinine Ratio NOT APPLICABLE 6 - 22 (calc) [facility] Sodium 140 135 - 146 mmol/L [facility] Potassium 4.4 3.5 - 5.3 mmol/L [facility] Chloride 105 98 - 110 mmol/L [facility] CO2 27 20 - 32 mmol/L [facility] Calcium 9.8 8.6 - 10.4 mg/dL [facility] Protein Total 7.2 6.1 - 8.1 g/dL [facility] Albumin 4.5 3.6 - 5.1 g/dL [facility] Globulin Total 2.7 1.9 - 3.7 g/dL (calc) [facility] Albumin/Globulin Ratio 1.7 1.0 - 2.5 (calc) [facility] Bilirubin Total 0.6 0.2 - 1.2 mg/dL [facility] Alkaline Phosphatase 107 37 - 153 U/L [facility] AST 81(H) 10 - 35 U/L [facility] ALT 83(H) 6 - 29 U/L [facility] Comment: Test Performed at: [facility] ??[phone] ASPEN HOLLINGSWORTH DO,MPH 05/15/2022 10:2 9 AM CDT 05/15/2022 10:34 AM CDT Perez Cervantes MD LAB - CHEMISTRY GERA DAVID [facility] [address] [place] [address] documented in this encounter Visit Diagnoses Not on filedocumented in this encounter Care Teams Tax Staff Accountant Relationship Specialty Start Date End Date Jaspreet Pearl MD PCP - General 08/08/18 03/26/24 documented as of this encounter
--- OUTSIDE RECORDS SUMMARY | 2024-11-13 17:07 | XMS_ITS | Encounter Summary ---
Author Organization [facility] Address [address] [facility] [place] [address] Care Team Providers Care Window Draper Name Role Phone Jaspreet Pearl MD Primary Care Provider + Encounter Details Date Type Department Care Team (Late st Contact Info) Description 05/24/2020 Orders Only [facility] [address] [place] [address] Perez Cervantes MD [address] [place] [address] [address] [place] [address] Polyarthritis; Encounter for therapeutic drug monitoring Social History Tobacco Use Types Packs/Day Years Used Date Smoking Tobacco: Former Cigarettes Q uit: 11/15/1998 Smokeless Tobacco: Never Alcohol Use Standard Drinks/Week Comments No 0 (1 standard drink = 0.6 oz pur e alcohol) Sex and Gender Information Value Date Recorded Sex Assigned at Not on file Gender Identity Not on file Sexual Orientation Not on file documented as of this encounter Plan of Treatment Upcoming Encounters Date Type Department Care Team (Late Contact Info) Description 03/27/2025 1:00 PM CDT Office Visit [facility] Rheumatology [address] [place] [address], [place] [phone] Perez Cervantes MD [address] [place] [address] [address] [place] [phone] documented as of this encounter Procedures Procedure Name Priority Date/Time Associated Diagnosis Comments URINALYSIS W/MICROSCOPIC REFLEX TO CULTURE Routine 05/27/2020 8:42 AM CDT Polyarthritis Encounter for therapeutic drug monitoring C-REACTIVE PROTEIN Routine 05/27/2020 8: 42 AM CDT Polyarthritis Encounter for therapeutic drug monitoring ERYTHROCYTE SEDIMENTATION RATE Routine 05/27/2020 8:42 AM CDT Polyarthritis Encounter for therapeutic drug monitoring CBC W AUTO DIFFERENTIAL Routine 05/27/2020 8:42 AM CDT Polyarthritis Encounter for therapeutic drug monitoring COMPREHENSIVE METABOLIC PANEL Routine 05/27/2020 8:42 AM CDT Polyarthritis Encounter for therapeutic drug monitoring documented in this encounter Results * URINALYSIS W/MICROSCOPIC REFLEX TO CULTURE (05/27/2020 8:42 AM CDT) Color UA YELLOW YELLOW [facility] Appearance CLEAR CLEAR [facility] Specific [place] UA 1.004 1.001 - 1.035 [facility] pH UA 6.0 [...] SEEN /LPF [facility] Comment: Test Performed at: [employer] [address] [place], [place] ??[phone] ASPEN HOLLINGSWORTH DO,MPH Urine URINE SPECIMEN OBTAINED BY CLEAN CATCH PROCEDURE / Unknown 05/27/2020 8:42 AM CDT 05/27/2020 8:43 AM CDT Perez Cervantes MD LAB - URINALYSIS ORD ERABLES [facility] [address] [place] [address] * C-REACTIVE PROTEIN (05/27/2020 8:42 AM CDT) Pathologist [facility] C-Reactive Protein 3.1 <8.0 mg/L [facility] Comment: Test Performed at: [employer] [facility] [address] [place], [place] ??[phone] ASPEN HOLLINGSWORTH DO,MPH Blood BLOOD SPECIMEN / Unknown 05/27/2020 8:42 AM CDT 05/27/2020 8:43 AM CDT Perez Cervantes MD LAB - CHEMISTRY ORDE RABDEMARCO Performing Organization Address [facility] Co de Phone Number [address] [address] * ERYTHROCYTE SEDIMENTATION RATE (05/27/2020 8:42 AM CDT) Pathologist [facility] Erythrocyte Sedimentation Rate Westergren 14 < OR = 30 mm/h [facility] Comment: Test Performed at: [employer] ??[phone] NAVID SCOTT MD Blood BLOOD SPECIMEN / Unknown 05/27/2020 8:42 AM CDT 05/27/2020 8:43 AM CDT Perez Cervantes MD LAB - HEMATOLOGY ORD ERABLES Performing Organization Address [facility] Co de Phone Number [address] [address] * COMPREHENSIVE METABOLIC PANEL (05/27/2020 8:42 AM CDT) Pathologist [facility] Glucose 85 65 - 99 mg/dL [facility] Comment: ? Fasting reference interval BUN 16 7 - 25 mg/dL [facility] Creatinine 0.68 0.50 - 1.05 mg/dL [facility] Comment: For patients >49 years of age, the reference limit for Creatinine is approximately 13% higher for people identified as -Turkish. eGFR by MDRD 97 > OR = 60 mL/min/1 .73m2 [facility] eGFR by MDRD 113 > OR = 60 mL/min/1 .73m2 [facility] BUN/Creatinine Ratio NOT APPLICABLE 6 - 22 (calc) [facility] Sodium 140 135 - 146 mmol/L [facility] Potassium 4.0 3.5 - 5.3 mmol/L [facility] Chloride 105 98 - 110 mmol/L [facility] CO2 24 20 - 32 mmol/L [facility] Calcium 9.7 8.6 - 10.4 mg/dL [facility] Protein Total 7.1 6.1 - 8.1 g/dL [facility] Albumin 4.4 3.6 - 5.1 g/dL [facility] Globulin Total 2.7 1.9 - 3.7 g/dL (calc) [facility] Albumin/Globulin Ratio 1.6 1.0 - 2.5 (calc) [facility] Bilirubin Total 0.4 0.2 - 1.2 mg/dL [facility] Alkaline Phosphatase 105 37 - 153 U/L [facility] AST 19 10 - 35 U/L [facility] ALT 24 6 - 29 U/L [facility] Comment: Test Performed at: [facility] [address] [facility] [place] [place] ??[phone] ASPEN HOLLINGSWORTH DO,MPH Blood BLOOD SPECIMEN / Unknown 05/27/2020 8:42 AM CDT 05/27/2020 8:43 AM CDT Perez Cervantes MD LAB - CHEMISTRY GERA DAVID [facility] [address] [place] [address] * CBC WITH DIFFERENTIAL (05/27/2020 8:42 AM CDT) White Blood Cell Count 4.6 3.8 - 10.8 Thousand/u L [facility] RBC 4.18 3.80 - 5.10 Million/uL [facility] Hemoglobin 12.6 11.7 - 15.5 g/dL [facility] Hematocrit 38.2 35.0 - 45.0 % [facility] MCV 91.4 80.0 - 100.0 fL [facility] MCH 30.1 27.0 - 33.0 pg [facility] MCHC 33.0 32.0 - 36.0 g/dL [facility] RDW 14.4 11.0 - 15.0 % [facility] Platelet Count 216 140 - 400 Thousand/u L [facility] MPV 10.9 7.5 - 12.5 fL [facility] Neutrophil Absolute 2249 1500 - 7800 cells/uL [facility] Lymphocytes Absolute 1702 850 - 3900 cells/uL [facility] Absolute Monocytes 524 200 - 950 cells/uL [facility] Eosinophils Absolute 92 15 - 500 cells/uL [facility] Basophils Absolute 32 0 - 200 cells/uL [facility] Granulocytes % 48.9 % [facility] Lymphocytes % 37.0 % [facility] Monocytes % 11.4 % [facility] Eosinophils % 2.0 % [facility] Basophils % 0.7 % [facility] Comment: Test Performed at: [facility] ??[phone] NAVID SCOTT MD Blood BLOOD SPECIMEN / Unknown 05/27/2020 8:42 AM CDT 05/27/2020 8:43 AM CDT Perez Cervantes MD LAB - HEMATOLOGY ORD ERABLES Performing Organization Address City/State/[facility] Co de Phone Number [address] [address] documented in this encounter Visit Diagnoses Diagnosis Polyarthritis Unspecified polyarthropathy or polyarthritis, site unspecified Encounter for therapeutic drug monitoring documented in this encounter Care Teams Window Draper Relationship Specialty Start Date End Date Jaspreet Pearl MD PCP - General 08/08/18 03/26/24 documented as of this encounter
--- OUTSIDE RECORDS SUMMARY | 2024-11-13 17:07 | XMS_ITS | Encounter Summary ---
Author Organization [facility] Address [address] [facility] [place] [address] Care Team Providers Care Adhesive Bandage Machine Operator Name Role Phone Jaspreet Pearl MD Primary Care Provider + Encounter Details Date Type Department Care Team (Late Contact Info) Description 05/23/2020 Orders Only [facility] [address] [place] [address] Perez Cervantes MD [address] [place] [address] [address] [place] [address] Encounter for therapeutic drug monitoring [...] Office Visit [facility] - Rheumatology [address] [place] [address], [place] [phone] Perez Cervantes MD [address] [place] [address] [address] [place] [phone] Scheduled Orders Name Type Priority Associated Diagnoses Orde r Schedule [facility] Lab Routine Encounter for therapeutic drug monitoring Ordered: 05/23/2020 documented as of this encounter Visit Diagnoses Diagnosis Encounter for therapeutic drug monitoring- Primary documented in this encounter Care Teams Adhesive Bandage Machine Operator Relationship Specialty Start Date End Date Jaspreet Pearl MD PCP - General 08/08/18 03/26/24 documented as of this encounter
--- OUTSIDE RECORDS SUMMARY | 2024-11-13 17:07 | XMS_ITS | Encounter Summary ---
Author Organization [facility] Address [address] [facility] [place] [address] Care Team Providers Care Twisting Frame Operator Name Role Phone Jaspreet Pearl MD Primary Care Provider + Encounter Details Date Type Department Care Team (Late Contact Info) Description 04/17/2022 Orders Only [facility] [address] [place] [phone] Perez Cervantes MD [address] [place] [address] [address] [address] Polyarthritis ; Encounter for therapeutic drug monitoring Social History [...] Office Visit [facility] - Rheumatology [address] [place] [phone] Perez Cervantes MD [address] [place] [address] [address] [place] [address] documented as of this encounter Visit Diagnoses Diagnosis Polyarthritis- Primary Unspecified polyarthropathy or polyarthritis, site unspecified Encounter for therapeutic drug monitoring documented in this encounter Care Teams Twisting Frame Operator Relationship Specialty Start Date End Date Jaspreet Pearl MD PCP - General 08/08/18 03/26/24 documented as of this encounter
--- OUTSIDE RECORDS SUMMARY | 2024-11-13 17:07 | XMS_ITS | Encounter Summary ---
Author Organization [facility] Address [address] [facility] [place] [address] Care Team Providers Care Beveling Machine Operator Name Role Phone Jaspreet Pearl MD Primary Care Provider + Encounter Details Date Type Department Care Team (Late Contact Info) Description 12/20/2020 Orders Only [facility] [address] [place] [address] Perez Cervantes MD [address] [place] [address] [place] [address] Polyarthritis; Encounter for therapeutic drug [...] on file Sexual Orientation Not on file COVID-19 Exposure Response Date Recorded In the last month, have you been in contact with someone who was confirmed or suspected to have Coronavirus / COVID-19? No / Unsure 12/10/2020 1:40 PM SUPERVISOR PIPE JOINTS documented as of this encounter Plan of Treatment Upcoming Encounters Date Type Department Care Team (Late Contact Info) Description 03/27/2025 1:00 PM CDT Office Visit [facility] - Rheumatology [address] [place] [address], [facility] [place] [address] Perez Cervantes MD [address] [place] [address] documented as of this encounter Procedures Procedure Name Priority Date/Time Associated Diagnosis Comments CULTURE URINE REFLEXED I 12/20/2020 11:30 AM SUPERVISOR PIPE JOINTS URINALYSIS W/MICROSCOPIC REFLEX TO CULTURE Routine 12/20/2020 11:30 AM SUPERVISOR PIPE JOINTS Polyarthritis Encounter for therapeutic drug monitoring C-REACTIVE PROTEIN Routine 12/20/2020 11 :30 AM SUPERVISOR PIPE JOINTS Polyarthritis Encounter for therapeutic drug monitoring ERYTHROCYTE SEDIMENTATION RATE Routine 12/20/2020 11:30 AM SUPERVISOR PIPE JOINTS Polyarthritis Encounter for therapeutic drug monitoring CBC W AUTO DIFFERENTIAL Routine 12/20/2020 11:30 AM SUPERVISOR PIPE JOINTS Polyarthritis Encounter for therapeutic drug monitoring COMPREHENSIVE METABOLIC PANEL Routine 12/20/2020 11:30 AM SUPERVISOR PIPE JOINTS Polyarthritis Encounter for therapeutic drug monitoring documented in this encounter Results * CULTURE URINE REFLEXED I (12/20/2020 11:30 AM SUPERVISOR PIPE JOINTS) Reflexive Urine Culture See Below [facility] Comment: NO CULTURE INDICATED Test Performed at: [facility] [address] [place], [place] ??[address] ASPEN HOLLINGSWORTH DO,MPH 12/20/2020 11:3 0 AM SUPERVISOR PIPE JOINTS 12/20/2020 11:31 AM SUPERVISOR PIPE JOINTS Perez Cervantes MD LAB - MICROBIOLOGY O RDERABLES [facility] [address] [place] [address] * (ABNORMAL) URINALYSIS W/MICROSCOPIC REFLEX TO CULTURE (12/20/2020 11:30 AM SUPERVISOR PIPE JOINTS) Color UA YELLOW YELLOW [facility] Appearance CLEAR CLEAR [facility] Specific Hewlett UA 1.021 1.001 - 1.035 [facility] pH UA 5.5 5.0 - 8.0 [facility] Glucose UA NEGATIVE NEGATIVE [facility] Bilirubin UA NEGATIVE NEGATIVE [facility] Ketone UA 1+(A) NEGATIVE [facility] Blood UA NEGATIVE NEGATIVE [facility] [...] SEEN /LPF [facility] Comment: Test Performed at: [facility] [address] [place], [place] ??[address] ASPEN HOLLINGSWORTH DO,MPH Urine URINE SPECIMEN OBTAINED BY CLEAN CATCH PROCEDURE / Unknown 12/20/2020 11:30 AM SUPERVISOR PIPE JOINTS 12/20/2020 11:31 AM SUPERVISOR PIPE JOINTS Perez Cervantes MD LAB - URINALYSIS ORD ERABLES Performing Organization Address [facility] Co de Phone Number [facility] [phone] [place] [address] * C-REACTIVE PROTEIN (12/20/2020 11:30 AM SUPERVISOR PIPE JOINTS) C-Reactive Protein 3.4 <8.0 mg/L [facility] Comment: REPORT COMMENT: FASTING:YES Test Performed at: [facility] [address] ??[phone] ASPEN HOLLINGSWORTH DO,MPH Blood BLOOD SPECIMEN / Unknown 12/20/2020 11:30 AM SUPERVISOR PIPE JOINTS 12/20/2020 11:31 AM SUPERVISOR PIPE JOINTS Perez Cervantes MD LAB - CHEMISTRY ORDE RABLES Performing Organization Address [facility] Co de Phone Number [facility] [address] [place] [address] * ERYTHROCYTE SEDIMENTATION RATE (12/20/2020 11:30 AM SUPERVISOR PIPE JOINTS) Erythrocyte Sedimentation Rate Westergren 11 < OR = 30 mm/h [facility] Comment: Test Performed at: [facility] [address] ??[phone] ASPEN HOLLINGSWORTH DO,MPH Blood BLOOD SPECIMEN / Unknown 12/20/2020 11:30 AM SUPERVISOR PIPE JOINTS 12/20/2020 11:31 AM SUPERVISOR PIPE JOINTS Perez Cervantes MD LAB - HEMATOLOGY JUVENTINO SAMAYOA [facility] [address] [place] [address] * COMPREHENSIVE METABOLIC PANEL (12/20/2020 11:30 AM SUPERVISOR PIPE JOINTS) Glucose 80 65 - 99 mg/dL [facility] Comment: ? Fasting reference interval BUN 13 7 - 25 mg/dL [facility] Creatinine 0.80 0.50 - 1.05 mg/dL [facility] Comment: For patients >49 years of age, the reference limit for Creatinine is approximately 13% higher for people identified as -Scottish. eGFR by MDRD 82 > OR = 60 mL/min/1 .73m2 [facility] eGFR by MDRD 95 > OR = 60 mL/min/1 .73m2 [facility] BUN/Creatinine Ratio NOT APPLICABLE 6 - 22 (calc) [facility] Sodium 140 135 - 146 mmol/L [facility] Potassium 3.7 3.5 - 5.3 mmol/L [facility] Chloride 102 98 - 110 mmol/L [facility] CO2 27 20 - 32 mmol/L [facility] Calcium 9.5 8.6 - 10.4 mg/dL [facility] Protein Total 7.4 6.1 - 8.1 g/dL [facility] Albumin 4.6 3.6 - 5.1 g/dL [facility] Globulin Total 2.8 1.9 - 3.7 g/dL (calc) [facility] Albumin/Globulin Ratio 1.6 1.0 - 2.5 (calc) [facility] Bilirubin Total 0.5 0.2 - 1.2 mg/dL [facility] Alkaline Phosphatase 100 37 - 153 U/L [facility] AST 22 10 - 35 U/L [facility] ALT 21 6 - 29 U/L [facility] Comment: Test Performed at: [facility] [address] ??[phone] ASPEN HOLLINGSWORTH DO,MPH Blood BLOOD SPECIMEN / Unknown 12/20/2020 11:30 AM SUPERVISOR PIPE JOINTS 12/20/2020 11:31 AM SUPERVISOR PIPE JOINTS Perez Cervantes MD LAB - CHEMISTRY GERA DAVID [facility] [address] [place] [address] * CBC WITH DIFFERENTIAL (12/20/2020 11:30 AM SUPERVISOR PIPE JOINTS) White Blood Cell Count 4.9 3.8 - 10.8 Thousand/u L [facility] RBC 4.12 3.80 - 5.10 Million/uL [facility] Hemoglobin 12.5 11.7 - 15.5 g/dL [facility] Hematocrit 38.2 35.0 - 45.0 % [facility] MCV 92.7 80.0 - 100.0 fL [facility] MCH 30.3 27.0 - 33.0 pg [facility] MCHC 32.7 32.0 - 36.0 g/dL [facility] RDW 14.0 11.0 - 15.0 % [facility] Platelet Count 210 140 - 400 Thousand/u L [facility] MPV 10.8 7.5 - 12.5 fL [facility] Neutrophil Absolute 2558 1500 - 7800 cells/uL [facility] Absolute Bands [facility] Metamyelocytes Absolute [facility] Myelocytes Absolute [facility] Absolute Prolymphocytes [facility] Lymphocytes Absolute 1838 850 - 3900 cells/uL [facility] Absolute Monocytes 417 200 - 950 cells/uL [facility] Eosinophils Absolute 69 15 - 500 cells/uL [facility] Basophils Absolute 20 0 - 200 cells/uL [facility] Absolute Blasts [facility] nRBC Absolute [facility] Granulocytes % 52.2 % [facility] Band Neutrophil [facility] Metamyelocytes [facility] Myelocytes [facility] Promyelocytes [facility] Lymphocytes % 37.5 % [facility] Lymphocyte Reactive [facility] Monocytes % 8.5 % [facility] Eosinophils % 1.4 % [facility] Basophils % 0.4 % [facility] Comment: Test Performed at: [facility] [address] [place], [place] ??[address] ASPEN HOLLINGSWORTH DO,MPH Blasts [facility] nRBC [facility] Comments [facility] Comment: Test Performed at: [facility] [address] [place], [place] ??[address] ASPEN HOLLINGSWORTH DO,MPH Blood BLOOD SPECIMEN / Unknown 12/20/2020 11:30 AM SUPERVISOR PIPE JOINTS 12/20/2020 11:31 AM SUPERVISOR PIPE JOINTS Perez Cervantes MD LAB - HEMATOLOGY ORD ERABLES [facility] [address] [place] [address] documented in this encounter Visit Diagnoses Diagnosis Polyarthritis Unspecified polyarthropathy or polyarthritis, site unspecified Encounter for therapeutic drug monitoring documented in this encounter Care Teams Beveling Machine Operator Relationship Specialty Start Date End Date Jaspreet Pearl MD PCP - General 08/08/18 03/26/24 documented as of this encounter
--- OUTSIDE RECORDS SUMMARY | 2024-11-13 17:07 | XMS_ITS | Encounter Summary ---
Author Organization [facility] Address [address] [facility] [place] [address] Care Team Providers Care Claim Rep Name Role Phone Jaspreet Pearl MD Primary Care Provider + Reason for Visit * Reason Onset Date Comments Medication Prior Auth Request 01/07/2022 En brel syringes Encounter Details Date Type Department Care Team (Late st Contact Info) Description 01/07/2022 Telephone [facility] [facility], [place] [address] Perez Cervantes MD [address] [place] [address] [place] [address] Medication Prior Auth Request (Enbrel syringes) Social History Tobacco Use Types Packs/Day Years [...] encounter Miscellaneous Notes * Telephone Encounter - Vidya Kaye RN - 01/13/2022 2:52 PM CST PA completed via [employer] portal with [employer] [place]. Received fax approval from [employer] for Enbrel 50mg/ml syringes, 4 syringes/28 days, effective 01/24/2022-01/24/2023 (current auth expires 01/23/22). Case # and Cover my meds [place]: [id number] NCT ART HISTORY INSTRUCTOR * Telephone Encounter - Lory Collier LPN - 01/07/2022 9:15 AM ADJUNCT ART HISTORY INSTRUCTOR Received fax notification from [employer] approving Enbrel syringes after the current PA expires (currently in place through 01/23/2022)), 01/24/2022 - 01/24/2023 form 4 syringes per 28 days. Case #: [id number]. NCT ART HISTORY INSTRUCTOR documented in this encounter Plan of Treatment Upcoming Encounters Date Type Department Care Team (Late st Contact Info) Description 03/27/2025 1:00 PM CDT Office Visit [facility] - Rheumatology [address] [place] [address], [place] [address] Perez Cervantes MD [address] [place] [address] [place] [phone] documented as of this encounter Visit Diagnoses Not on filedocumented in this encounter Care Teams Claim Rep Relationship Specialty Start Date End Date Jaspreet Pearl MD PCP - General 08/08/18 03/26/24 documented as of this encounter
--- OUTSIDE RECORDS SUMMARY | 2024-11-13 17:07 | XMS_ITS | Encounter Summary ---
Author Organization [facility] Address [address] [facility] [place] [address] Care Team Providers Care Boom Man Name Role Phone Jaspreet Pearl MD Primary Care Provider + Encounter Details Date Type Department Care Team (Latest Contact Info) Description 06/04/2020 Travel Social History Tobacco Use Types Packs/Day [...] have Coronavirus / COVID-19? No / Unsure 06/04/2020 3:31 PM CDT documented as of this encounter Plan of Treatment Upcoming Encounters Date Type Department Care Team (Late st Contact Info) Description 03/27/2025 1:00 PM CDT Office Visit [facility] - Rheumatology [address] [place] [address], [place] [address] Perez Cervantes MD [address] [place] [address] [place] [phone] documented as of this encounter Visit Diagnoses Not on filedocumented in this encounter Care Teams Boom Man Relationship Specialty Start Date End Date Jaspreet Pearl MD PCP - General 08/08/18 03/26/24 documented as of this encounter
--- OUTSIDE RECORDS SUMMARY | 2024-11-13 17:07 | XMS_ITS | Encounter Summary ---
Author Organization [facility] Address [address] [facility] [place] [address] Care Team Providers Care Side Panel Padder Name Role Phone Jaspreet Pearl MD Primary Care Provider + Encounter Details Date Type Department Care Team (Late st Contact Info) Description 03/03/2021 Orders Only [facility] [address] [place] [phone] Perez Cervantes MD [address] [place] [address] 2L [place] [phone] Social History Tobacco Use Types Packs/Day Years [...] Office Visit [facility] - Rheumatology [address] [place] [phone] Perez Cervantes MD [address] [place] [address] [address] [place] [phone] documented as of this encounter Procedures Procedure Name Priority Date/Time Associated Diagnosis Comments CULTURE URINE REFLEXED I 03/03/2021 11:34 AM CDT URINALYSIS W/MICROSCOPIC REFLEX TO CULTURE 03/03/2021 11:34 AM CDT C-REACTIVE PROTEIN 03/03/2021 11 :34 AM CDT ERYTHROCYTE SEDIMENTATION RATE 03/03/2021 11:34 AM CDT CBC W AUTO DIFFERENTIAL 03/03/2021 11:34 AM CDT documented in this encounter Results * C-REACTIVE PROTEIN (03/03/2021 11:34 AM CDT) Pathologist [facility] C-Reactive Protein 2.9 <8.0 mg/L [facility] Comment: Test Performed at: [facility] ??[phone] ASPEN HOLLINGSWORTH DO,MPH 03/03/2021 11:3 4 AM CDT 03/03/2021 11:35 AM CDT Perez Cervantes MD LAB - CHEMISTRY GERA DAVID [facility] Organization Address City/State/ZIP Co de Phone Number [facility] [address] [place] [address] * CBC WITH DIFFERENTIAL (03/03/2021 11:34 AM CDT) Pathologist [facility] White Blood Cell Count 5.9 3.8 - 10.8 Thousand/u L [facility] RBC 4.49 3.80 - 5.10 Million/uL [facility] Hemoglobin 13.4 11.7 - 15.5 g/dL [facility] Hematocrit 39.8 35.0 - 45.0 % [facility] MCV 88.6 80.0 - 100.0 fL [facility] MCH 29.8 27.0 - 33.0 pg [facility] MCHC 33.7 32.0 - 36.0 g/dL [facility] RDW 14.7 11.0 - 15.0 % [facility] Platelet Count 224 140 - 400 Thousand/u L [facility] MPV 11.1 7.5 - 12.5 fL [facility] Neutrophil Absolute 3204 1500 - 7800 cells/uL [facility] Lymphocytes Absolute 2124 850 - 3900 cells/uL [facility] Absolute Monocytes 513 200 - 950 cells/uL [facility] Eosinophils Absolute 41 15 - 500 cells/uL [facility] Basophils Absolute 18 0 - 200 cells/uL [facility] Granulocytes % 54.3 % [facility] Lymphocytes % 36.0 % [facility] Monocytes % 8.7 % [facility] Eosinophils % 0.7 % [facility] Basophils % 0.3 % [facility] Comment: Test Performed at: [facility] [address] [place], [place] ??[address] ASPEN HOLLINGSWORTH DO,MPH 03/03/2021 11:3 4 AM CDT 03/03/2021 11:35 AM CDT Perez Cervantes MD LAB - HEMATOLOGY ORD ERABLES Performing Organization Address [facility] Co de Phone Number [facility] [address] [place] [address] * CULTURE URINE REFLEXED I (03/03/2021 11:34 AM CDT) Reflexive Urine Culture See Below [facility] Comment: NO CULTURE INDICATED Test Performed at: [facility] [address] [place], [place] ??[address] ASPEN HOLLINGSWORTH DO,MPH 03/03/2021 11:3 4 AM CDT 03/03/2021 11:35 AM CDT Perez Cervantes MD LAB - MICROBIOLOGY O RDERABLES Performing Organization Address [facility] Co de Phone Number [facility] [address] [place] [address] * (ABNORMAL) URINALYSIS W/MICROSCOPIC REFLEX TO CULTURE (03/03/2021 11:34 AM CDT) Color UA YELLOW YELLOW [facility] Appearance CLEAR CLEAR [facility] Specific Hope UA 1.012 1.001 - 1.035 [facility] pH UA 6.0 [...] = 2 /HPF [facility] Epithelial Cell UA 6-10(A) < OR = 5 /HPF [facility] Bacteria UA FEW(A) NONE SEEN /HPF [facility] Hyaline Casts NONE SEEN NONE SEEN /LPF [facility] Comment: Test Performed at: [facility] [address] [place], [place] ??[address] ASPEN HOLLINGSWORTH DO,MPH 03/03/2021 11:3 4 AM CDT 03/03/2021 11:35 AM CDT Perez Cervantes MD LAB - URINALYSIS ORD ERABLES Performing Organization Address [facility] Co de Phone Number [address] [address] * ERYTHROCYTE SEDIMENTATION RATE (03/03/2021 11:34 AM CDT) Erythrocyte Sedimentation Rate Westergren 17 < OR = 30 mm/h [facility] Comment: Test Performed at: [facility] [address] [place], [place] ??[address] ASPEN HOLLINGSWORTH DO,MPH 03/03/2021 11:3 4 AM CDT 03/03/2021 11:35 AM CDT Perez Cervantes MD LAB - HEMATOLOGY ORD ERABLES Performing Organization Address [facility] Co de Phone Number [address] [address] documented in this encounter Visit Diagnoses Not on filedocumented in this encounter Care Teams Side Panel Padder Relationship Specialty Start Date End Date Jaspreet Pearl MD PCP - General 08/08/18 03/26/24 documented as of this encounter
--- OUTSIDE RECORDS SUMMARY | 2024-11-13 17:07 | XMS_ITS | Encounter Summary ---
Author Organization [facility] Address [address] [place] [address] Care Team Providers Care Estimator Printing Name Role Phone Jaspreet Pearl MD Primary Care Provider + Dayanara Plaza MD Primary Care Provider [phone] Encounter Details Date Type Department Care Team (Late Contact Info) Description 07/28/2022 Telephone [facility] [address] [place] [phone] Perez Cervantes MD [address] [place] [address] [address] [place] [phone] Social History Tobacco Use Types Packs/Day Years [...] Office Visit [facility] - Rheumatology [address] [place] [phone] Perez Cervantes MD [address] [place] [address] [address] [place] [address] documented as of this encounter Visit Diagnoses Not on filedocumented in this encounter Care Teams Estimator Printing Relationship Specialty Start Date End Date Jaspreet Pearl MD PCP - General 08/08/18 03/26/24 [place] [address] [phone] PCP - General Family Medicine 03/27/24 documented as of this encounter
--- OUTSIDE RECORDS SUMMARY | 2024-11-13 17:07 | XMS_ITS | Encounter Summary ---
Author Organization [facility] Address [address] [facility] [place] [address] Care Team Providers Care Flight Crew Ordnanceman Name Role Phone Jaspreet Pearl MD Primary Care Provider + Encounter Details Date Type Department Care Team (Late Contact Info) Description 04/17/2022 Orders Only [facility] Pediatrics - Rheumatology [address] [place] [address]. [place] [address] Perez Cervantes MD [address] [place] [address] [address] [place] [phone] Social History Tobacco Use Types Packs/Day Years [...] Visit [facility] - Rheumatology [address] [place] [address], [place] [address] Perez Cervantes MD [address] [place] [address] [address] [place] [phone] documented as of this encounter Visit Diagnoses Not on filedocumented in this encounter Care Teams Flight Crew Ordnanceman Relationship Specialty Start Date End Date Jaspreet Pearl MD PCP - General 08/08/18 03/26/24 documented as of this encounter
--- OUTSIDE RECORDS SUMMARY | 2024-11-13 17:07 | XMS_ITS | Encounter Summary ---
Author Organization [facility] Address [address] [facility] [place] [address] Care Team Providers Care Journeyman Patternmaker Name Role Phone Jaspreet Pearl MD Primary Care Provider + Encounter Details Date Type Department Care Team (Late Contact Info) Description 08/02/2020 Orders Only [facility] [address] [place] [address] Perez Cervantes MD [address] [place] [address] [address] [place] [address] Polyarthritis; Encounter for therapeutic drug [...] Office Visit [facility] - Rheumatology [address] [place] [address], [place] [phone] Perez Cervantes MD [address] [place] [address] [address] [place] [phone] documented as of this encounter Procedures Procedure Name Priority Date/Time Associated Diagnosis Comments CULTURE URINE REFLEXED 0 7:17 AM CDT URINALYSIS W/MICROSCOPIC REFLEX TO CULTURE Routine 08/13/2020 7:17 AM CDT Polyarthritis Encounter for therapeutic drug monitoring Encounter for long-term (current) use of medications C-REACTIVE PROTEIN Routine 08/13/2020 7: 17 AM CDT Polyarthritis Encounter for therapeutic drug monitoring Encounter for long-term (current) use of medications CULTURE URINE 08/13/2020 7:17 AM CDT ERYTHROCYTE SEDIMENTATION RATE Routine 08/13/2020 7:17 AM CDT Polyarthritis Encounter for therapeutic drug monitoring Encounter for long-term (current) use of medications CBC W AUTO DIFFERENTIAL Routine 08/13/2020 7:17 AM CDT Polyarthritis Encounter for therapeutic drug monitoring Encounter for long-term (current) use of medications COMPREHENSIVE METABOLIC PANEL Routine 08/13/2020 7:17 AM CDT Polyarthritis Encounter for therapeutic drug monitoring Encounter for long-term (current) use of medications documented in this encounter Results * CULTURE URINE (08/13/2020 7:17 AM CDT) Culture [facility] Comment: ??CULTURE, URINE, ROUTINE ?Micro Number: ?[id number] ??Test Status: ? Final ??Specimen Source: ?? URINE ??Specimen Quality: ??Adequate ??Result: ?Less than 10,000 CFU/mL of single Gram negative ? organism isolated. No further testing will be ? performed. If clinically indicated, recollection ? using a method to minimize contamination, with ? prompt transfer to Urine Culture Transport Tube, ? is recommended. REPORT COMMENT: FASTING:YES Test Performed at: [facility] [place] [address] [place], [place] ??[phone] ASPEN HOLLINGSWORTH DO,MPH 08/13/2020 7:17 AM CDT 08/13/2020 7:18 AM CDT Perez Cervantes MD LAB - MICROBIOLOGY O JOEY Performing Organization Address [facility] Phone Number [facility] [address] [place] [address] * CULTURE URINE REFLEXED (08/13/2020 7:17 AM CDT) Reflexive Urine Culture See Below [facility] Comment: CULTURE INDICATED - RESULTS TO FOLLOW Test Performed at: [facility] [place] [address] [place] ??[phone] ASPEN HOLLINGSWORTH DO,MPH 08/13/2020 7:17 AM CDT 08/13/2020 7:18 AM CDT Perez Cervantes MD LAB - MICROBIOLOGY O JOEY Performing Organization Address [facility] de Phone Number [facility] [address] [place] [address] * C-REACTIVE PROTEIN (08/13/2020 7:17 AM CDT) C-Reactive Protein 2.7 <8.0 mg/L [facility] Comment: Test Performed at: [facility] [place] [address] [place], [place] ??[phone] ASPEN HOLLINGSWORTH DO,MPH Blood BLOOD SPECIMEN / Unknown 08/13/2020 7:17 AM CDT 08/13/2020 7:18 AM CDT Perez Cervantes MD LAB - CHEMISTRY GERA DAVID Performing Organization Address [facility]/State/ZIP Co de Phone Number [facility] [address] [place] [address] * ERYTHROCYTE SEDIMENTATION RATE (08/13/2020 7:17 AM CDT) Erythrocyte Sedimentation Rate Westergren 11 < OR = 30 mm/h [facility] Comment: Test Performed at: [facility] [address] [place], [place] ??[phone] ASPEN HOLLINGSWORTH DO,MPH Blood BLOOD SPECIMEN / Unknown 08/13/2020 7:17 AM CDT 08/13/2020 7:18 AM CDT Perez Cervantes MD LAB - HEMATOLOGY ORD ERABLES [facility] [address] [place] [address] * COMPREHENSIVE METABOLIC PANEL (08/13/2020 7:17 AM CDT) Glucose 85 65 - 99 mg/dL [facility] Comment: ? Fasting reference interval BUN 13 7 - 25 mg/dL [facility] Creatinine 0.76 0.50 - 1.05 mg/dL [facility] Comment: For patients >49 years of age, the reference limit for Creatinine is approximately 13% higher for people identified as -Iraqi. eGFR by MDRD 87 > OR = 60 mL/min/1 .73m2 [facility] eGFR by MDRD 101 > OR = 60 mL/min/1 .73m2 [facility] BUN/Creatinine Ratio NOT APPLICABLE 6 - 22 (calc) [facility] Sodium 139 135 - 146 mmol/L [facility] Potassium 4.1 3.5 - 5.3 mmol/L [facility] Chloride 103 98 - 110 mmol/L [facility] CO2 29 20 - 32 mmol/L [facility] Calcium 9.2 8.6 - 10.4 mg/dL [facility] Protein Total 7.0 6.1 - 8.1 g/dL [facility] Albumin 4.2 3.6 - 5.1 g/dL [facility] Globulin Total 2.8 1.9 - 3.7 g/dL (calc) [facility] Albumin/Globulin Ratio 1.5 1.0 - 2.5 (calc) [facility] Bilirubin Total 0.4 0.2 - 1.2 mg/dL [facility] Alkaline Phosphatase 96 37 - 153 U/L [facility] AST 22 10 - 35 U/L [facility] ALT 24 6 - 29 U/L [facility] Comment: Test Performed at: [facility] [place] [address] [place] ??[phone] ASPEN HOLLINGSWORTH DO,MPH Blood BLOOD SPECIMEN / Unknown 08/13/2020 7:17 AM CDT 08/13/2020 7:18 AM CDT Perez Cervantes MD LAB - CHEMISTRY GERA DAVID Performing Organization Address City/[facility] Co de Phone Number [facility] [address] [place] [phone] * CBC WITH DIFFERENTIAL (08/13/2020 7:17 AM CDT) White Blood Cell Count 5.3 3.8 - 10.8 Thousand/u L [facility] RBC 4.20 3.80 - 5.10 Million/uL [facility] Hemoglobin 12.9 11.7 - 15.5 g/dL [facility] Hematocrit 38.9 35.0 - 45.0 % [facility] MCV 92.6 80.0 - 100.0 fL [facility] MCH 30.7 27.0 - 33.0 pg [facility] MCHC 33.2 32.0 - 36.0 g/dL [facility] RDW 14.7 11.0 - 15.0 % [facility] Platelet Count 207 140 - 400 Thousand/u L [facility] MPV 10.7 7.5 - 12.5 fL [facility] Neutrophil Absolute 2952 1500 - 7800 cells/uL [facility] Lymphocytes Absolute 1548 850 - 3900 cells/uL [facility] Absolute Monocytes 620 200 - 950 cells/uL [facility] Eosinophils Absolute 159 15 - 500 cells/uL [facility] Basophils Absolute 21 0 - 200 cells/uL [facility] Granulocytes % 55.7 % [facility] Lymphocytes % 29.2 % [facility] Monocytes % 11.7 % [facility] Eosinophils % 3.0 % [facility] Basophils % 0.4 % [facility] Comment: Test Performed at: [facility] [address] [place] ??[phone] ASPEN HOLLINGSWORTH DO,MPH Blood BLOOD SPECIMEN / Unknown 08/13/2020 7:17 AM CDT 08/13/2020 7:18 AM CDT Perez Cervantes MD LAB - HEMATOLOGY ORD DANITA Performing Organization Address City/[facility] Co de Phone Number [facility] [address] [place] [address] * (ABNORMAL) URINALYSIS W/MICROSCOPIC REFLEX TO CULTURE (08/13/2020 7:17 AM CDT) Color UA YELLOW YELLOW [facility] Appearance CLEAR CLEAR [facility] Specific [place] UA 1.016 1.001 - 1.035 [facility] pH UA 6.5 5.0 - 8.0 [facility] Glucose UA NEGATIVE [...] 6-10(A) < OR = 5 /HPF [facility] Transitional Epithelial Cells [facility] Renal Epithelial Cells [facility] Bacteria UA NONE SEEN NONE SEEN /HPF [facility] Calcium Oxalate Crystals [facility] Triple Phosphate Crystals [facility] Uric Acid Crystals [facility] Amorphous UA [facility] Crystals UA [facility] Hyaline Casts NONE SEEN NONE SEEN /LPF [facility] Comment: Test Performed at: [facility] [address] [place], [place] ??[phone] ASPEN HOLLINGSWORTH DO,MPH Granular Casts [facility] Casts UA [facility] Yeast [facility] Comments [facility] Note [facility] Comment: Test Performed at: [email or web address] [address] [place] ??[phone] ASPEN HOLLINGSWORTH DO,MPH Urine URINE SPECIMEN OBTAINED BY CLEAN CATCH PROCEDURE / Unknown 08/13/2020 7:17 AM CDT 08/13/2020 7:18 AM CDT Perez Cervantes MD LAB - URINALYSIS ORD ERABLES Performing Organization Address City/State/[facility] Co de Phone Number [facility] [address] [place] [address] documented in this encounter Visit Diagnoses Diagnosis Polyarthritis Unspecified polyarthropathy or polyarthritis, site unspecified Encounter for therapeutic drug monitoring Encounter for long-term (current) use of medications Encounter for long-term (current) use of other medications documented in this encounter Care Teams Journeyman Patternmaker Relationship Specialty Start Date End Date Jaspreet Pearl MD PCP - General 08/08/18 03/26/24 documented as of this encounter
--- OUTSIDE RECORDS SUMMARY | 2024-11-13 17:07 | XMS_ITS | Encounter Summary ---
Author Organization [facility] Address [address] [facility] [place] [address] Care Team Providers Care Clinical Auditor Name Role Phone Jaspreet Pearl MD Primary Care Provider + Encounter Details Date Type Department Care Team (Late Contact Info) Description 03/20/2022 Orders Only [facility] [address] [place] [phone] Perez Cervantes MD [address] [place] [address] [address] [address] Social History Tobacco Use Types [...] Office Visit [facility] - Rhe[facility]ology [address] [place] [phone] Perez Cervantes MD [address] [place] [address] [address] [phone] documented as of this encounter Procedures Procedure Name Priority Date/Time Associated Diagnosis Comments CULTURE URINE REFLEXED 7:20 AM CDT URINALYSIS W/MICROSCOPIC REFLEX TO CULTURE 03/20/2022 7:20 AM CDT C-REACTIVE PROTEIN 03/20/2022 7: 20 AM CDT CULTURE URINE 03/20/2022 7:20 AM CDT ERYTHROCYTE SEDIMENTATION RATE 03/20/2022 7:20 AM CDT CBC W AUTO DIFFERENTIAL 03/20/2022 7:20 AM CDT COMPREHENSIVE METABOLIC PANEL 03/20/2022 7:20 AM CDT documented in this encounter Results * CULTURE URINE (03/20/2022 7:20 AM CDT) Culture [facility] Comment: ??CULTURE, URINE, ROUTINE ?Micro Number: ?[id number] ??Test Status: ? Final ??Specimen Source: ?? Urine ??Specimen Quality: ??Adequate ??Result: ?Mixed genital erin isolated. These superficial ? bacteria are not indicative of a urinary tract ? infection. No further organism identification is ? warranted on this specimen. If clinically ? indicated, recollect clean-catch, mid-stream ? urine and transfer immediately to Urine Culture ? Transport Tube. Test Performed at: [facility] [address] [place], [place] ??[phone] ASPEN HOLLINGSWORTH DO,MPH 03/20/2022 7:20 AM CDT 03/20/2022 7:25 AM CDT Perez Cervantes MD LAB - MICROBIOLOGY O JOEY Performing Organization Address [facility] de Phone Number [facility] [phone] [place], [place] [phone] * CULTURE URINE REFLEXED (03/20/2022 7:20 AM CDT) Reflexive Urine Culture See Below [facility] Comment: CULTURE INDICATED - RESULTS TO FOLLOW Test Performed at: [facility] [address] [place] [address] ??[phone] ASPEN HOLLINGSWORTH DO,MPH 03/20/2022 7:20 AM CDT 03/20/2022 7:25 AM CDT Perez Cervantes MD LAB - MICROBIOLOGY O JOEY Performing Organization Address [facility] de Phone Number [facility] [address] [place] [address] * C-REACTIVE PROTEIN (03/20/2022 7:20 AM CDT) C-Reactive Protein 3.1 <8.0 mg/L [facility] Comment: Test Performed at: [facility] [facility] [place], [place] ??[phone] ASPEN HOLLINGSWORTH DO,MPH 03/20/2022 7:20 AM CDT 03/20/2022 7:25 AM CDT Perez Cervantes MD LAB - CHEMISTRY GERA DAVID Performing Organization Address [facility] de Phone Number [facility] [address] [place] [address] * CBC WITH DIFFERENTIAL (03/20/2022 7:20 AM CDT) White Blood Cell Count 3.9 3.8 - 10.8 Thousand/u L [facility] RBC 4.27 3.80 - 5.10 Million/uL [facility] Hemoglobin 12.9 11.7 - 15.5 g/dL [facility] Hematocrit 39.6 35.0 - 45.0 % [facility] MCV 92.7 80.0 - 100.0 fL [facility] MCH 30.2 27.0 - 33.0 pg [facility] MCHC 32.6 32.0 - 36.0 g/dL [facility] RDW 14.0 11.0 - 15.0 % [facility] Platelet Count 197 140 - 400 Thousand/u L [facility] MPV 11.1 7.5 - 12.5 fL [facility] Neutrophil Absolute 2129 1500 - 7800 cells/uL [facility] Absolute Bands [facility] Metamyelocytes Absolute [facility] Myelocytes Absolute [facility] Absolute Prolymphocytes [facility] Lymphocytes Absolute 1322 850 - 3900 cells/uL [facility] Absolute Monocytes 374 200 - 950 cells/uL [facility] Eosinophils Absolute 62 15 - 500 cells/uL [facility] Basophils Absolute 12 0 - 200 cells/uL [facility] Absolute Blasts [facility] nRBC Absolute [facility] Granulocytes % 54.6 % [facility] Band Neutrophil [facility] Metamyelocytes [facility] Myelocytes [facility] Promyelocytes [facility] Lymphocytes % 33.9 % [facility] Lymphocyte Reactive [facility] Monocytes % 9.6 % [facility] Eosinophils % 1.6 % [facility] Basophils % 0.3 % [facility] Comment: Test Performed at: [facility] [address] [place], [place] ??[address] ASPEN HOLLINGSWORTH DO,MPH Blasts [facility] nRBC [facility] Comments [facility] Comment: Test Performed at: [facility] [address] [place], [place] ??[phone] ASPEN HOLLINGSWORTH DO,MPH 03/20/2022 7:20 AM CDT 03/20/2022 7:25 AM CDT Perez Cervantes MD LAB - HEMATOLOGY ORD ERABLES [facility] [address] [place] [address] * (ABNORMAL) URINALYSIS W/MICROSCOPIC REFLEX TO CULTURE (03/20/2022 7:20 AM CDT) Color UA DARK YELLOW YELLOW [facility] Appearance CLEAR CLEAR [facility] Specific [place] UA 1.024 1.001 - 1.035 [facility] pH UA 7.5 [...] SEEN /LPF [facility] Comment: Test Performed at: [facility] ??[phone] ASPEN HOLLINGSWORTH DO,MPH Granular Casts [facility] Casts UA [facility] Yeast [facility] Comments [facility] Note [facility] Comment: Test Performed at: [facility] [address] ??[phone] ASPEN HOLLINGSWORTH DO,MPH 03/20/2022 7:20 AM CDT 03/20/2022 7:25 AM CDT Perez Cervantes MD LAB - URINALYSIS ORD ERABLES Performing Organization Address [facility] de Phone Number [facility] [address] [place] [address] * ERYTHROCYTE SEDIMENTATION RATE (03/20/2022 7:20 AM CDT) Pathologist [facility] Erythrocyte Sedimentation Rate Westergren 9 < OR = 30 mm/h [facility] Comment: Test Performed at: [facility] [address] ??[phone] ASPEN HOLLINGSWORTH DO,MPH 03/20/2022 7:20 AM CDT 03/20/2022 7:25 AM CDT Perez Cervantes MD LAB - HEMATOLOGY ORD ERABLES Performing Organization Address [facility] de Phone Number [address] [address] * COMPREHENSIVE METABOLIC PANEL (03/20/2022 7:20 AM CDT) Pathologist [facility] Glucose 81 65 - 99 mg/dL [facility] Comment: ? Fasting reference interval BUN 23 7 - 25 mg/dL [facility] Creatinine 0.80 0.50 - 1.05 mg/dL [facility] Comment: For patients >49 years of age, the reference limit for Creatinine is approximately 13% higher for people identified as -Martiniquais. eGFR by MDRD 81 > OR = 60 mL/min/1 .73m2 [facility] eGFR by MDRD 94 > OR = 60 mL/min/1 .73m2 [facility] BUN/Creatinine Ratio NOT APPLICABLE 6 - 22 (calc) [facility] Sodium 140 135 - 146 mmol/L [facility] Potassium 4.1 3.5 - 5.3 mmol/L [facility] Chloride 104 98 - 110 mmol/L [facility] CO2 29 20 - 32 mmol/L [facility] Calcium 9.3 8.6 - 10.4 mg/dL [facility] Protein Total 7.1 6.1 - 8.1 g/dL [facility] Albumin 4.3 3.6 - 5.1 g/dL [facility] Globulin Total 2.8 1.9 - 3.7 g/dL (calc) [facility] Albumin/Globulin Ratio 1.5 1.0 - 2.5 (calc) [facility] Bilirubin Total 0.6 0.2 - 1.2 mg/dL [facility] Alkaline Phosphatase 96 37 - 153 U/L [facility] AST 24 10 - 35 U/L [facility] ALT 26 6 - 29 U/L [facility] Comment: Test Performed at: [facility] [id number] [place] [address] ??[phone] ASPEN HOLLINGSWORTH DO,MPH 03/20/2022 7:20 AM CDT 03/20/2022 7:25 AM CDT Perez Cervantes MD LAB - CHEMISTRY GERA DAVID [facility] Organization Address City/State/ZIP Co de Phone Number [facility] [address] [place] [address] documented in this encounter Visit Diagnoses Not on filedocumented in this encounter Care Teams Clinical Auditor Relationship Specialty Start Date End Date Jaspreet Pearl MD PCP - General 08/08/18 03/26/24 documented as of this encounter
--- OUTSIDE RECORDS SUMMARY | 2024-11-13 17:07 | XMS_ITS | Encounter Summary ---
Author Organization [facility] Address [address] [place] [address] Care Team Providers Care Assembler Musical Instruments Name Role Phone Jaspreet Pearl MD Primary Care Provider + Encounter Details Date Type Department Care Team (Late Contact Info) Description 04/17/2022 Orders Only [facility] - Rheumatology [address] [place] [address]. [place] [address] Perez Cervantes MD [address] [place] [address] [address] [place] [phone] Social History Tobacco Use Types Packs/Day Years [...] Visit [facility] - Rheumatology [address] [place] [address], [place] [address] Perez Cervantes MD [address] [place] [address] [address] [place] [phone] documented as of this encounter Visit Diagnoses Not on filedocumented in this encounter Care Teams Assembler Musical Instruments Relationship Specialty Start Date End Date Jaspreet Pearl MD PCP - General 08/08/18 03/26/24 documented as of this encounter
--- OUTSIDE RECORDS SUMMARY | 2024-11-13 17:07 | XMS_ITS | Encounter Summary ---
Author Organization [facility] Address [address] [facility] [place] [address] Care Team Providers Care Group Rooms Coordinator Name Role Phone Jaspreet Pearl MD Primary Care Provider + Encounter Details Date Type Department Care Team (Late Contact Info) Description 07/27/2022 Orders Only [facility] [address] [place] [phone] Perez Cervantes MD [address] [place] [address] [address] [place] [address] Social History Tobacco Use Types [...] Visit [facility] Rhe[facility]ology [address] [place] [phone] Perez Cervantes MD [address] [place] [address] [address] [place] [phone] documented as of this encounter Procedures Procedure Name Priority Date/Time Associated Diagnosis Comments CULTURE URINE REFLEXED II 07/27/2022 7:13 AM CDT URINALYSIS W/MICROSCOPIC REFLEX TO CULTURE 07/27/2022 7:13 AM CDT C-REACTIVE PROTEIN 07/27/2022 7: 13 AM CDT CULTURE URINE 07/27/2022 7:13 AM CDT ERYTHROCYTE SEDIMENTATION RATE 07/27/2022 7:13 AM CDT CBC W AUTO DIFFERENTIAL 07/27/2022 7:13 AM CDT COMPREHENSIVE METABOLIC PANEL 07/27/2022 7:13 AM CDT documented in this encounter Results * CULTURE URINE (07/27/2022 7:13 AM CDT) Culture [facility] Comment: ??CULTURE, URINE, ROUTINE ?Micro Number: ?[id number] ??Test Status: ? Final ??Specimen Source: ?? Urine ??Specimen Quality: ??Adequate ??Result: ?Less than 10,000 CFU/mL of single Gram negative ? organism isolated. No further testing will be ? performed. If clinically indicated, recollection ? using a method to minimize contamination, with ? prompt transfer to Urine Culture Transport Tube, ? is recommended. Test Performed at: [facility] ??[phone] NAVID SCOTT MD 07/27/2022 7:13 AM CDT 07/27/2022 7:13 AM CDT Perez Cervantes MD LAB - MICROBIOLOGY O JOEY Performing Organization Address [facility] de Phone Number [address] [address] * C-REACTIVE PROTEIN (07/27/2022 7:13 AM CDT) C-Reactive Protein 4.7 <8.0 mg/L [facility] Comment: Test Performed at: [facility] [address] ??[phone] ASPEN HOLLINGSWORTH DO,MPH 07/27/2022 7:13 AM CDT 07/27/2022 7:13 AM CDT Perez Cervantes MD LAB - CHEMISTRY GERA DAVID Performing Organization Address [facility] de Phone Number [address] [address] * CULTURE URINE REFLEXED II (07/27/2022 7:13 AM CDT) Pathologist [facility] Reflexive Urine Culture See Below [facility] Comment: CULTURE INDICATED - RESULTS TO FOLLOW Test Performed at: [facility] ??[phone] NAVID SCOTT MD 07/27/2022 7:13 AM CDT 07/27/2022 7:13 AM CDT Perez Cervantes MD LAB - MICROBIOLOGY O JOEY Performing Organization Address [facility] de Phone Number [address] [address] * (ABNORMAL) URINALYSIS W/MICROSCOPIC REFLEX TO CULTURE (07/27/2022 7:13 AM CDT) Color UA YELLOW YELLOW [facility] Appearance CLEAR CLEAR [facility] Specific [place] UA 1.025 1.001 - 1.035 [facility] pH UA 5.5 5.0 - 8.0 [facility] Glucose UA NEGATIVE NEGATIVE [facility] Bilirubin UA NEGATIVE NEGATIVE [facility] Ketone UA NEGATIVE NEGATIVE [facility] Blood UA NEGATIVE NEGATIVE [facility] Protein UA NEGATIVE NEGATIVE [facility] Nitrite NEGATIVE NEGATIVE [facility] Leukocyte Esterase 1+(A) NEGATIVE [facility] WBC UA 10-20(A) < OR = 5 /HPF [facility] RBC UA NONE SEEN < OR = 2 /HPF [facility] Epithelial Cell UA 0-5 < OR = 5 /HPF [facility] Bacteria UA NONE SEEN NONE SEEN /HPF [facility] Hyaline Casts NONE SEEN NONE SEEN /LPF [facility] Comment: Test Performed at: [facility] ??[phone] NAVID SCOTT MD 07/27/2022 7:13 AM CDT 07/27/2022 7:13 AM CDT Perez Cervantes MD LAB - URINALYSIS ORD ERABLES [address] [address] * CBC WITH DIFFERENTIAL (07/27/2022 7:13 AM CDT) White Blood Cell Count 4.8 3.8 - 10.8 Thousand/u L [facility] RBC 4.03 3.80 - 5.10 Million/uL [facility] Hemoglobin 12.4 11.7 - 15.5 g/dL [facility] Hematocrit 37.3 35.0 - 45.0 % [facility] MCV 92.6 80.0 - 100.0 fL [facility] MCH 30.8 27.0 - 33.0 pg [facility] MCHC 33.2 32.0 - 36.0 g/dL [facility] RDW 14.1 11.0 - 15.0 % [facility] Platelet Count 191 140 - 400 Thousand/u L [facility] MPV 10.7 7.5 - 12.5 fL [facility] Neutrophil Absolute 2808 1500 - 7800 cells/uL [facility] Absolute Bands [facility] Metamyelocytes Absolute [facility] Myelocytes Absolute [facility] Absolute Prolymphocytes [facility] Lymphocytes Absolute 1258 850 - 3900 cells/uL [facility] Absolute Monocytes 595 200 - 950 cells/uL [facility] Eosinophils Absolute 120 15 - 500 cells/uL [facility] Basophils Absolute 19 0 - 200 cells/uL [facility] Absolute Blasts [facility] nRBC Absolute [facility] Granulocytes % 58.5 % [facility] Band Neutrophil [facility] Metamyelocytes [facility] Myelocytes [facility] Promyelocytes [facility] Lymphocytes % 26.2 % [facility] Lymphocyte Reactive [facility] Monocytes % 12.4 % [facility] Eosinophils % 2.5 % [facility] Basophils % 0.4 % [facility] Comment: Test Performed at: [facility] [address] [address] [place], [place] ??[phone] ASPEN HOLLINGSWORTH DO,MPH Blasts [facility] nR [facility] Comments [facility] Comment: Test Performed at: [facility] [address] [address] [place], [place] ??[phone] ASPEN HOLLINGSWORTH DO,MPH 07/27/2022 7:13 AM CDT 07/27/2022 7:13 AM CDT Perez Cervantes MD LAB - HEMATOLOGY ORD ERABLES Performing Organization Address City/[facility]/ZIP Co de Phone Number [facility] [address] [place] [address] * ERYTHROCYTE SEDIMENTATION RATE (07/27/2022 7:13 AM CDT) Erythrocyte Sedimentation Rate Westergren 11 < OR = 30 mm/h [facility] Comment: Test Performed at: [facility] [place] [id number] [place], [place] ??[phone] ASPEN HOLLINGSWORTH DO,MPH 07/27/2022 7:13 AM CDT 07/27/2022 7:13 AM CDT Perez Cervantes MD LAB - HEMATOLOGY ORD ERABLES Performing Organization Address City/[facility] Co de Phone Number [facility] [address] [place] [address] * COMPREHENSIVE METABOLIC PANEL (07/27/2022 7:13 AM CDT) Glucose 87 65 - 99 mg/dL [facility] Comment: ? Fasting reference interval BUN 18 7 - 25 mg/dL [facility] Creatinine 0.81 [...] 140 135 - 146 mmol/L [facility] Potassium 4.3 3.5 - 5.3 mmol/L [facility] Chloride 104 98 - 110 mmol/L [facility] CO2 30 20 - 32 mmol/L [facility] Calcium 9.3 8.6 - 10.4 mg/dL [facility] Protein Total 7.2 6.1 - 8.1 g/dL [facility] Albumin 4.2 3.6 - 5.1 g/dL [facility] Globulin Total 3.0 1.9 - 3.7 g/dL (calc) [facility] Albumin/Globuli n Ratio 1.4 1.0 - 2.5 (calc) [facility] Bilirubin Total 0.3 0.2 - 1.2 mg/dL [facility] Alkaline Phosphatase 104 37 - 153 U/L [facility] AST 22 10 - 35 U/L [facility] ALT 29 6 - 29 U/L [facility] Comment: Test Performed at: [facility] [address] [place] [address] ??[phone] ASPEN HOLLINGSWORTH DO,MPH 07/27/2022 7:13 AM CDT 07/27/2022 7:13 AM CDT Perez Cervantes MD LAB - CHEMISTRY GERA DAVID [facility] [address] [place] [phone] documented in this encounter Visit Diagnoses Not on filedocumented in this encounter Care Teams Group Rooms Coordinator Relationship Specialty Start Date End Date Jaspreet Pearl MD PCP - General 08/08/18 03/26/24 documented as of this encounter
--- OUTSIDE RECORDS SUMMARY | 2024-11-13 17:07 | XMS_ITS | Encounter Summary ---
Author Organization [facility] Address [address] [facility] [place] [address] Care Team Providers Care Aerospace Assembler Name Role Phone Jaspreet Pearl MD Primary Care Provider + Encounter Details Date Type Department Care Team (Late st Contact Info) Description 11/08/2020 Orders Only [facility] [address] [place] [address] Perez Cervantes MD [address] [place] [address] [address] [place] [address] Polyarthritis; Encounter for therapeutic drug [...] Visit [facility]ology [address] [place] [address], [place] [phone] Perez Cervantes MD [address] [place] [address] [address] [place] [phone] documented as of this encounter Visit Diagnoses Diagnosis Polyarthritis Unspecified polyarthropathy or polyarthritis, site unspecified Encounter for therapeutic drug monitoring documented in this encounter Care Teams Aerospace Assembler Relationship Specialty Start Date End Date Jaspreet Pearl MD PCP - General 08/08/18 03/26/24 documented as of this encounter
--- OUTSIDE RECORDS SUMMARY | 2024-11-13 17:07 | XMS_ITS | Encounter Summary ---
Author Organization [facility] Address [address] [facility] [place] [address] Care Team Providers Care Laboratory Courier Name Role Phone Jaspreet Pearl MD Primary Care Provider + Encounter Details Date Type Department Care Team (Late Contact Info) Description 08/29/2021 Orders Only [facility] [address] [place] [phone] Perez Cervantes MD [address] [place] [address] [address] [phone] Encounter for therapeutic drug monitoring ; Polyarthritis Social History Tobacco Use Types Packs/Day [...] Visit [facility] [address] [place] [phone] Perez Cervantes MD [address] [place] [address] [address] [place] [phone] documented as of this encounter Procedures Procedure Name Priority Date/Time Associated Diagnosis Comments CULTURE URINE REFLEXED III 08/29/2021 7:28 AM CDT URINALYSIS W/MICROSCOPIC REFLEX TO CULTURE 08/29/2021 7:28 AM CDT C-REACTIVE PROTEIN 08/29/2021 7: 28 AM CDT ERYTHROCYTE SEDIMENTATION RATE 08/29/2021 7:28 AM CDT CBC W AUTO DIFFERENTIAL 08/29/2021 7:28 AM CDT COMPREHENSIVE METABOLIC PANEL 08/29/2021 7:28 AM CDT documented in this encounter Results * CULTURE URINE REFLEXED III (08/29/2021 7:28 AM CDT) Reflexive Urine Culture See Below [facility] Comment: NO CULTURE INDICATED Test Performed at: [facility] ??[phone] NAVID SCOTT MD 08/29/2021 7:28 AM CDT 08/29/2021 7:28 AM CDT Perez Cervantes MD LAB - MICROBIOLOGY O RDERABLES [address] [address] * C-REACTIVE PROTEIN (08/29/2021 7:28 AM CDT) C-Reactive Protein 2.5 <8.0 mg/L [facility] Comment: REPORT COMMENT: FASTING:YES Test Performed at: [facility] [address] [address] [place], [place] ??[phone] ASPEN HOLLINGSWORTH DO,MPH 08/29/2021 7:28 AM CDT 08/29/2021 7:28 AM CDT Perez Cervantes MD LAB - CHEMISTRY GERA DAVID Performing Organization Address [facility] Co de Phone Number [address] [address] * (ABNORMAL) CBC WITH DIFFERENTIAL (08/29/2021 7:28 AM CDT) [facility] White Blood Cell Count 5.0 3.8 - 10.8 Thousand/ uL [facility] RBC 4.15 3.80 - 5.10 Million/u L [facility] Hemoglobin 12.6 11.7 - 15.5 g/dL [facility] Hematocrit 39.3 35.0 - 45.0 % [facility] MCV 94.7 80.0 - 100.0 fL [facility] MCH 30.4 27.0 - 33.0 pg [facility] MCHC 32.1 32.0 - 36.0 g/dL [facility] RDW 15.1(H) 11.0 - 15.0 % [facility] Platelet Count 219 140 - 400 Thousand/ uL [facility] MPV 10.6 7.5 - 12.5 fL [facility] Neutrophil Absolute 3245 1500 - 7800 cells/uL [facility] Lymphocytes Absolute 1295 850 - 3900 cells/uL [facility] Absolute Monocytes 410 200 - 950 cells/uL [facility] Eosinophils Absolute 40 15 - 500 cells/uL [facility] Basophils Absolute 10 0 - 200 cells/uL [facility] Granulocytes % 64.9 % [facility] Lymphocytes % 25.9 % [facility] Monocytes % 8.2 % [facility] Eosinophils % 0.8 % [facility] Basophils % 0.2 % [facility] Comment: Test Performed at: [facility] ??[phone] NAVID SCOTT MD 08/29/2021 7:28 AM CDT 08/29/2021 7:28 AM CDT Perez Cervantes MD LAB - HEMATOLOGY JUVENTINO SAMAYOA Performing Organization Address [facility] Co de Phone Number [address] [address] * ERYTHROCYTE SEDIMENTATION RATE (08/29/2021 7:28 AM CDT) [facility] Erythrocyte Sedimentation Rate Westergren 19 < OR = 30 mm/h [facility] Comment: Test Performed at: [facility] ??[phone] NAVID SCOTT MD 08/29/2021 7:28 AM CDT 08/29/2021 7:28 AM CDT Perez Cervantes MD LAB - HEMATOLOGY ORD ERABLES Performing Organization Address [facility] Co de Phone Number [facility] [address] [place] [address] * URINALYSIS W/MICROSCOPIC REFLEX TO CULTURE (08/29/2021 7:28 AM CDT) Color UA YELLOW YELLOW [facility] Appearance CLEAR CLEAR [facility] Specific [place] UA 1.014 1.001 - 1.035 [facility] pH UA 7.5 [...] SEEN < OR = 5 /HPF [facility] Transitional Epithelial Cells [facility] Renal Epithelial Cells [facility] Bacteria UA NONE SEEN NONE SEEN /HPF [facility] Calcium Oxalate Crystals [facility] Triple Phosphate Crystals [facility] Uric Acid Crystals [facility] Amorphous UA [facility] Crystals UA [facility] Hyaline Casts NONE SEEN NONE SEEN /LPF [facility] Comment: Test Performed at: [facility] ??[phone] NAVID SCOTT MD Granular Casts [facility] Casts UA [facility] Yeast [facility] Comments [facility] Note [facility] Comment: Test Performed at: [facility] [address] [place], [place] ??[phone] ASPEN HOLLINGSWORTH DO,MPH 08/29/2021 7:28 AM CDT 08/29/2021 7:28 AM CDT Perez Cervantes MD LAB - URINALYSIS ORD ERABLES Performing Organization Address [facility] Co de Phone Number [facility] [address] [place] [address] * COMPREHENSIVE METABOLIC PANEL (08/29/2021 7:28 AM CDT) Glucose 82 65 - 99 mg/dL [facility] Comment: ? Fasting reference interval BUN 13 7 - 25 mg/dL [facility] Creatinine 0.73 0.50 - 1.05 mg/dL [facility] Comment: For patients >49 years of age, the reference limit for Creatinine is approximately 13% higher for people identified as -Martiniquais. eGFR by MDRD 91 > OR = 60 mL/min/1 .73m2 [facility] eGFR by MDRD 105 > OR = 60 mL/min/1 .73m2 [facility] BUN/Creatinine Ratio NOT APPLICABLE 6 - 22 (calc) [facility] Sodium 139 135 - 146 mmol/L [facility] Potassium 4.5 3.5 - 5.3 mmol/L [facility] Chloride 104 98 - 110 mmol/L [facility] CO2 24 20 - 32 mmol/L [facility] Calcium 9.8 8.6 - 10.4 mg/dL [facility] Protein Total 7.1 6.1 - 8.1 g/dL [facility] Albumin 4.3 3.6 - 5.1 g/dL [facility] Globulin Total 2.8 1.9 - 3.7 g/dL (calc) [facility] Albumin/Globulin Ratio 1.5 1.0 - 2.5 (calc) [facility] Bilirubin Total 0.6 0.2 - 1.2 mg/dL [facility] Alkaline Phosphatase 85 37 - 153 U/L [facility] AST 20 10 - 35 U/L [facility] ALT 19 6 - 29 U/L [facility] Comment: Test Performed at: [facility] [address] [place] [address] ??[phone] ASPEN HOLLINGSWORTH DO,MPH 08/29/2021 7:28 AM CDT 08/29/2021 7:28 AM CDT Perez Cervantes MD LAB - CHEMISTRY GERA DAVID [facility] Organization Address City/State/[facility] Co ok Phone Number [facility] [address] [place] [address] documented in this encounter Visit Diagnoses Diagnosis Encounter for therapeutic drug monitoring- Primary Polyarthritis Unspecified polyarthropathy or polyarthritis, site unspecified documented in this encounter Care Teams Laboratory Courier Relationship Specialty Start Date End Date Jaspreet Pearl MD PCP - General 08/08/18 03/26/24 documented as of this encounter
--- OUTSIDE RECORDS SUMMARY | 2024-11-13 17:07 | XMS_ITS | Encounter Summary ---
Author Organization [facility] Address [address] [facility] [place] [address] Care Team Providers Care Analytical Laboratory Technician Name Role Phone Jaspreet Pearl MD Primary Care Provider + Dayanara Plaza MD Primary Care Provider [phone] Encounter Details Date Type Department Care Team (Late Contact Info) Description 05/06/2020 Lab Requisition [facility] [address] [facility] [place] [phone] Debbie Olmedo MD [address] [place] [address] Social History Tobacco Use Types Packs/Day Years [...] Office Visit [facility] - Rheumatology [address] [place] [address] [place] [phone] Perez Cervantes MD [address] [place] [address] [place] [phone] documented as of this encounter Procedures Procedure Name Priority Date/Time Associated Diagnosis Comments DERMATOPATHOLOGY Routine 05/02/2020 12:0 0 AM CDT documented in this encounter Results * DERMATOPATHOLOGY (05/02/2020 12:00 AM CDT) Case Report Dermatopathology Report ? Case: [id number] ? Authorizing Provider: ??Debbie Olmedo MD ? Collected: ? 05/02/2020 12:00 AM ? Ordering Location: ? [facility] ?Received: ?05/06/2020 12:13 PM ? Pathologist: ? Elvia Donaldson MD ? Specimens: ?? A) - Skin, right collarbone ? B) - Skin, central chest ? 0 5:31 PM CDT DERMATOPATHOLOGY LABORATORY Final Diagnosis Specimen A. SKIN, right collarbone: DERMAL SCAR RESIDUAL BASAL CELL CARCINOMA NOT IDENTIFIED (L90.5) Specimen B. SKIN, central chest: DERMAL SCAR RESIDUAL BASAL CELL CARCINOMA NOT IDENTIFIED (L90.5) 0 5:31 PM [facility] DERMATOPATHOLOGY LABORATORY Clinical History A-B: R/O BCC, superficial multifocal, biopsy proven. 0 5:31 PM T DERMATOPATHOLOGY LABORATORY Gross Description Specimen A: Received is one formalin filled container labeled with the patient's name and designated right collarbone.The specimen consists of an ellipse measuring [id number] and is oriented with the notch at the 12 o'clock position labeled on the requisition as proximal. The epidermal surface consists of a centrally located 8x6mm previous biopsy site. The 12 to 6 o'clock margin is inked green. The 6 o'clock to 12 o'clock margin is inked black. The 12 o'clock tip is submitted in cassette 1. The 6 o'clock tip is submitted in cassette 2. The remainder of the ellipse is serially sectioned and submitted in cassettes 3-4. Jar 0. Specimen B: Received is one formalin filled container labeled with the patient's name and designated central chest.The specimen consists of an ellipse measuring [id number] and is oriented with the notch at the 12 o'clock position labeled on the requisition as proximal. The epidermal surface consists of a centrally located 5x5mm previous biopsy site. The 12 to 6 o'clock margin is inked green. The 6 o'clock to 12 o'clock margin is inked black. The 12 o'clock tip is submitted in cassette 1. The 6 o'clock tip is submitted in cassette 2. The remainder of the ellipse is serially sectioned and submitted in cassettes 3-4. Jar 0. 0 5:31 PM T DERMATOPATHOLOGY LABORATORY Microscopic Description Specimen A. SKIN, right collarbone: There are fibroblasts and collagen bundles oriented parallel to the skin surface. There are elongated blood vessels, some of which are oriented perpendicular to the skin surface. No basal cell carcinoma is identified. Specimen B. SKIN, central chest: There are fibroblasts and collagen bundles oriented parallel to the skin surface. There are elongated blood vessels, some of which are oriented perpendicular to the skin surface. No basal cell carcinoma is identified. 0 5:31 PM CDT DERMATOPATHOLOGY LABORATORY Disclaimer An external and internal positive and negative controls are appropriate for the histochemical, immunohistochemical and immunofluorescence stain(s) in this case (if any), except where stated explicitly. The performance characteristics of the stain(s) cited in this report were developed and its performance characteristic determined by the Dermatopathology Laboratory at [facility], directed by Dr. Robbin Dunbar. These tests need not be, and therefore are not, approved by the [place] Food and Drug Administration. The tests are used for clinical purposes. Billing Codes Specimen Charges Stain Charges 74466 74343 1 1 0 5:31 PM CDT DERMATOPATHOLOGY LABORATORY Embedded Images 0 5:31 PM CDT DERMATOPATHOLOGY LABORATORY Pathology/Cytology TISSUE SPECIMEN FROM SKIN / Unknown 05/02/2020 05/06/2020 12:13 PM CDT Miscellaneous samples (specimen) TISSUE SPECIMEN FROM SKIN / Unknown 05/02/2020 05/06/2020 12:13 PM CDT Debbie Olmedo MD LAB - PATHOLOGY/CYTO LOGY ORDERABLES DERMATOPATHOLOGY LABORATORY [facility] - Department of Dermatology [facility]/[address] [phone] documented in this encounter Visit Diagnoses Not on filedocumented in this encounter Care Teams Analytical Laboratory Technician Relationship Specialty Start Date End Date Jaspreet Pearl MD PCP - General 08/08/18 03/26/24 [place] [id number] [phone] PCP - General Family Medicine 03/27/24 documented as of this encounter
--- OUTSIDE RECORDS SUMMARY | 2024-11-13 17:07 | XMS_ITS | Encounter Summary ---
Author Organization [facility] Address [address] [facility] [place] [address] Care Team Providers Care Home Care Specialist Name Role Phone Jaspreet Pearl MD Primary Care Provider + Reason for Visit * Reason Onset Date Comments Rx Authorization 01/01/2021 Enbrel approval Encounter Details Date Type Department Care Team (Late st Contact Info) Description 01/01/2021 Telephone [facility] [address] [place] [address], [facility] [place] [address] Perez Cervantes MD [address] [place] [address] [place] [address] Rx Authorization (Enbrel approval) Social History Tobacco Use Types Packs/Day Years [...] COVID-19? 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 Received fax confirmation from [employer] approving Enbrel 50mg/ml syringe, 4 syringes/28 days, effective 01/23/2021-01/23/2022. Case #:[id number] OUTBOARD ENGINE MECHANIC documented in this encounter Plan of Treatment Upcoming Encounters Date Type Department Care Team (Late st Contact Info) Description 03/27/2025 1:00 PM CDT Office Visit [facility] - Rheumatology [address] [place] [address], [place] [address] Perez Cervantes MD [address] [place] [address] [place] [phone] documented as of this encounter Visit Diagnoses Not on filedocumented in this encounter Care Teams Home Care Specialist Relationship Specialty Start Date End Date Jaspreet Pearl MD PCP - General 08/08/18 03/26/24 documented as of this encounter
--- OUTSIDE RECORDS SUMMARY | 2024-11-13 17:07 | XMS_ITS | Encounter Summary ---
Author Organization [facility] Address [address] [place] [place] [address] Care Team Providers Care Digital Campaign Specialist Name Role Phone Jaspreet Pearl MD Primary Care Provider + Encounter Details Date Type Department Care Team (Late st Contact Info) Description 04/12/2020 Orders Only [facility] [address] [place] [address] Perez Cervantes MD [address] [place] [address] [address] [place] [address] Polyarthritis ; Encounter for therapeutic [...] Office Visit [facility] - Rheumatology [address] [place] [address], [place] [phone] Perez Cervantes MD [address] [place] [address] [address] [place] [phone] documented as of this encounter Procedures Procedure Name Priority Date/Time Associated Diagnosis Comments CULTURE URINE REFLEXED I 04/12/2020 9:30 AM CDT URINALYSIS W/MICROSCOPIC REFLEX TO CULTURE Routine 04/12/2020 9:30 AM CDT Polyarthritis Encounter for therapeutic drug monitoring C-REACTIVE PROTEIN Routine 04/12/2020 9: 30 AM CDT Polyarthritis Encounter for therapeutic drug monitoring ERYTHROCYTE SEDIMENTATION RATE Routine 04/12/2020 9:30 AM CDT Polyarthritis Encounter for therapeutic drug monitoring CBC W AUTO DIFFERENTIAL Routine 04/12/2020 9:30 AM CDT Polyarthritis Encounter for therapeutic drug monitoring COMPREHENSIVE METABOLIC PANEL Routine 04/12/2020 9:30 AM CDT Polyarthritis Encounter for therapeutic drug monitoring documented in this encounter Results * CULTURE URINE REFLEXED I (04/12/2020 9:30 AM CDT) Reflexive Urine Culture NO CULTURE INDICATED [facility] Comment: Test Performed at: [facility] [address] ??[phone] ASPEN HOLLINGSWORTH DO,MPH 04/12/2020 9:30 AM CDT 04/12/2020 9:31 AM CDT Perez Cervantes MD LAB - MICROBIOLOGY O RDERABLES [facility] [address] [place] [address] * URINALYSIS W/MICROSCOPIC REFLEX TO CULTURE (04/12/2020 9:30 AM CDT) Color UA YELLOW YELLOW [facility] Appearance CLEAR CLEAR [facility] Specific [place] UA 1.009 1.001 - 1.035 [facility] pH UA 5.5 [...] SEEN /LPF [facility] Comment: Test Performed at: [facility] [address] ??[phone] ASPEN HOLLINGSWORTH DO,MPH Reflexive Urine Culture NO CULTURE INDICATED [facility] Comment: Test Performed at: [facility] [address] ??[phone] ASPEN HOLLINGSWORTH DO,MPH Urine URINE SPECIMEN OBTAINED BY CLEAN CATCH PROCEDURE / Unknown 04/12/2020 9:30 AM CDT 04/12/2020 9:31 AM CDT Perez Cervantes MD LAB - URINALYSIS ORD ERABLES Performing Organization Address [facility] Co de Phone Number [address] [address] * C-REACTIVE PROTEIN (04/12/2020 9:30 AM CDT) C-Reactive Protein 2.4 <8.0 mg/L [facility] Comment: Test Performed at: [facility] [address] ??[phone] ASPEN HOLLINGSWORTH DO,MPH Blood BLOOD SPECIMEN / Unknown 04/12/2020 9:30 AM CDT 04/12/2020 9:31 AM CDT Perez Cervantes MD LAB - CHEMISTRY ORDE RABDEMARCO Performing Organization Address City/[facility]/ZIP Co de Phone Number [address] [address] * ERYTHROCYTE SEDIMENTATION RATE (04/12/2020 9:30 AM CDT) Erythrocyte Sedimentation Rate Westergren 16 < OR = 30 mm/h [facility] Comment: Test Performed at: [facility] ??[phone] NAVID SCOTT MD Blood BLOOD SPECIMEN / Unknown 04/12/2020 9:30 AM CDT 04/12/2020 9:31 AM CDT Perez Cervantes MD LAB - HEMATOLOGY ORD DANITA [facility] [address] [place] [address] * COMPREHENSIVE METABOLIC PANEL (04/12/2020 9:30 AM CDT) Pathologist [facility] Glucose 87 65 - 99 mg/dL [facility] Comment: ? Fasting reference interval BUN 16 7 - 25 mg/dL [facility] Creatinine 0.81 0.50 - 1.05 mg/dL [facility] Comment: For patients >49 years of age, the reference limit for Creatinine is approximately 13% higher for people identified as -Citizen Of [place]. eGFR by MDRD 81 > OR = 60 mL/min/1 .73m2 [facility] eGFR by MDRD 93 > OR = 60 mL/min/1 .73m2 [facility] BUN/Creatinine Ratio NOT APPLICABLE 6 - 22 (calc) [facility] Sodium 141 135 - 146 mmol/L [facility] Potassium 4.8 3.5 - 5.3 mmol/L [facility] Chloride 105 98 - 110 mmol/L [facility] CO2 27 20 - 32 mmol/L [facility] Calcium 9.8 8.6 - 10.4 mg/dL [facility] Protein Total 7.2 6.1 - 8.1 g/dL [facility] Albumin 4.6 3.6 - 5.1 g/dL [facility] Globulin Total 2.6 1.9 - 3.7 g/dL (calc) [facility] Albumin/Globulin Ratio 1.8 1.0 - 2.5 (calc) [facility] Bilirubin Total 0.6 0.2 - 1.2 mg/dL [facility] Alkaline Phosphatase 103 37 - 153 U/L [facility] AST 20 10 - 35 U/L [facility] ALT 24 6 - 29 U/L [facility] Comment: Test Performed at: [facility] [employer] [address], [place] ??[phone] ASPEN HOLLINGSWORTH DO,MPH Blood BLOOD SPECIMEN / Unknown 04/12/2020 9:30 AM CDT 04/12/2020 9:31 AM CDT Perez Cervantes MD LAB - CHEMISTRY GERA DAVID [facility] [address] [place] [address] * CBC WITH DIFFERENTIAL (04/12/2020 9:30 AM CDT) White Blood Cell Count 3.8 3.8 - 10.8 Thousand/u L [facility] RBC 4.19 3.80 - 5.10 Million/uL [facility] Hemoglobin 12.6 11.7 - 15.5 g/dL [facility] Hematocrit 38.5 35.0 - 45.0 % [facility] MCV 91.9 80.0 - 100.0 fL [facility] MCH 30.1 27.0 - 33.0 pg [facility] MCHC 32.7 32.0 - 36.0 g/dL [facility] RDW 14.6 11.0 - 15.0 % [facility] Platelet Count 227 140 - 400 Thousand/u L [facility] MPV 11.0 7.5 - 12.5 fL [facility] Neutrophil Absolute 1801 1500 - 7800 cells/uL [facility] Lymphocytes Absolute 1391 850 - 3900 cells/uL [facility] Absolute Monocytes 528 200 - 950 cells/uL [facility] Eosinophils Absolute 61 15 - 500 cells/uL [facility] Basophils Absolute 19 0 - 200 cells/uL [facility] Granulocytes % 47.4 % [facility] Lymphocytes % 36.6 % [facility] Monocytes % 13.9 % [facility] Eosinophils % 1.6 % [facility] Basophils % 0.5 % [facility] Comment: Test Performed at: [employer] [facility] ??[phone] NAVID SCOTT MD Blood BLOOD SPECIMEN / Unknown 04/12/2020 9:30 AM CDT 04/12/2020 9:31 AM CDT Perez Cervantes MD LAB - HEMATOLOGY ORD ERABLES [address] [address] documented in this encounter Visit Diagnoses Diagnosis Polyarthritis- Primary Unspecified polyarthropathy or polyarthritis, site unspecified Encounter for therapeutic drug monitoring documented in this encounter Care Teams Digital Campaign Specialist Relationship Specialty Start Date End Date Jaspreet Pearl MD PCP - General 08/08/18 03/26/24 documented as of this encounter
--- OUTSIDE RECORDS SUMMARY | 2024-11-13 17:07 | XMS_ITS | Encounter Summary ---
Author Organization [facility] Address [address] [facility] [place] [address] Care Team Providers Care Curator Natural History Museum Name Role Phone Jaspreet Pearl MD Primary Care Provider + Encounter Details Date Type Department Care Team (Late st Contact Info) Description 01/22/2022 Orders Only [facility] [address] [place] [phone] Perez Cervantes MD [address] [place] [address] [address] [place] [address] Social History Tobacco Use Types [...] Visit [facility] - Rheumatology [address] [place] [phone] Perez Cervantes MD [address] [place] [address] [address] [place] [phone] documented as of this encounter Procedures Procedure Name Priority Date/Time Associated Diagnosis Comments CULTURE URINE REFLEXED 7:46 AM ECCLESIASTICAL WORKER URINALYSIS W/MICROSCOPIC REFLEX TO CULTURE 01/22/2022 7:46 AM ECCLESIASTICAL WORKER C-REACTIVE PROTEIN 01/22/2022 7: 46 AM ECCLESIASTICAL WORKER CULTURE URINE 01/22/2022 7:46 AM ECCLESIASTICAL WORKER ERYTHROCYTE SEDIMENTATION RATE 01/22/2022 7:46 AM ECCLESIASTICAL WORKER CBC W AUTO DIFFERENTIAL 01/22/2022 7:46 AM ECCLESIASTICAL WORKER COMPREHENSIVE METABOLIC PANEL 01/22/2022 7:46 AM ECCLESIASTICAL WORKER documented in this encounter Results * CULTURE URINE (01/22/2022 7:46 AM ECCLESIASTICAL WORKER) Culture [facility] Comment: ??CULTURE, URINE, ROUTINE ?Micro Number: ?[id number] ??Test Status: ? Final ??Specimen Source: ?? Urine ??Specimen Quality: ??Adequate ??Result: ?Mixed genital erin isolated. These superficial ? bacteria are not indicative of a urinary tract ? infection. No further organism identification is ? warranted on this specimen. If clinically ? indicated, recollect clean-catch, mid-stream ? urine and transfer immediately to Urine Culture ? Transport Tube. REPORT COMMENT: FASTING:YES Test Performed at: [facility] [place] [address] [place], [place] ??[phone] ASPEN HOLLINGSWORTH DO,MPH 01/22/2022 7:46 AM ECCLESIASTICAL WORKER 01/22/2022 7:47 AM ECCLESIASTICAL WORKER Perez Cervantes MD LAB - MICROBIOLOGY O JOEY Performing Organization Address [facility] de Phone Number [facility] [phone] [place] [address] * CULTURE URINE REFLEXED (01/22/2022 7:46 AM ECCLESIASTICAL WORKER) Pathologist [facility] Reflexive Urine Culture See Below [facility] Comment: CULTURE INDICATED - RESULTS TO FOLLOW Test Performed at: [facility] [place] [address] [place] ??[phone] ASPEN HOLLINGSWORTH DO,MPH 01/22/2022 7:46 AM ECCLESIASTICAL WORKER 01/22/2022 7:47 AM ECCLESIASTICAL WORKER Perez Cervantes MD LAB - MICROBIOLOGY O JOEY Performing Organization Address [facility] de Phone Number [facility] [address] [place] [address] * C-REACTIVE PROTEIN (01/22/2022 7:46 AM ECCLESIASTICAL WORKER) Pathologist [facility] C-Reactive Protein 1.7 <8.0 mg/L [facility] Comment: Test Performed at: [facility] [facility] [place] [address] [place] ??[phone] ASPEN HOLLINGSWORTH DO,MPH 01/22/2022 7:46 AM ECCLESIASTICAL WORKER 01/22/2022 7:47 AM ECCLESIASTICAL WORKER Perez Cervantes MD LAB - CHEMISTRY GERA DAVID Performing Organization Address [facility] de Phone Number [facility] [address] [place] [address] * CBC WITH DIFFERENTIAL (01/22/2022 7:46 AM ECCLESIASTICAL WORKER) Pathologist [facility] White Blood Cell Count 4.6 3.8 - 10.8 Thousand/u L [facility] RBC 4.54 3.80 - 5.10 Million/uL [facility] Hemoglobin 13.9 11.7 - 15.5 g/dL [facility] Hematocrit 42.4 35.0 - 45.0 % [facility] MCV 93.4 80.0 - 100.0 fL [facility] MCH 30.6 27.0 - 33.0 pg [facility] MCHC 32.8 32.0 - 36.0 g/dL [facility] RDW 13.9 11.0 - 15.0 % [facility] Platelet Count 198 140 - 400 Thousand/u L [facility] MPV 10.9 7.5 - 12.5 fL [facility] Neutrophil Absolute 2314 1500 - 7800 cells/uL [facility] Lymphocytes Absolute 1665 850 - 3900 cells/uL [facility] Absolute Monocytes 534 200 - 950 cells/uL [facility] Eosinophils Absolute 69 15 - 500 cells/uL [facility] Basophils Absolute 18 0 - 200 cells/uL [facility] Granulocytes % 50.3 % [facility] Lymphocytes % 36.2 % [facility] Monocytes % 11.6 % [facility] Eosinophils % 1.5 % [facility] Basophils % 0.4 % [facility] Comment: Test Performed at: [facility] ??[phone] NAVID SCOTT MD 01/22/2022 7:46 AM ECCLESIASTICAL WORKER 01/22/2022 7:47 AM ECCLESIASTICAL WORKER Perez Cervantes MD LAB - HEMATOLOGY ORD ERABLES Performing Organization Address City/[facility]/ZIP Co de Phone Number [address] [address] * ERYTHROCYTE SEDIMENTATION RATE (01/22/2022 7:46 AM ECCLESIASTICAL WORKER) Erythrocyte Sedimentation Rate Westergren 14 < OR = 30 mm/h [facility] Comment: Test Performed at: [facility] ??[phone] NAVID SCOTT MD 01/22/2022 7:46 AM ECCLESIASTICAL WORKER 01/22/2022 7:47 AM ECCLESIASTICAL WORKER Perez Cervantes MD LAB - HEMATOLOGY ORD ERABLES Performing Organization Address City/[facility]/ZIP Co de Phone Number [address] [address] * (ABNORMAL) URINALYSIS W/MICROSCOPIC REFLEX TO CULTURE (01/22/2022 7:46 AM ECCLESIASTICAL WORKER) Color UA YELLOW YELLOW [facility] Appearance CLOUDY(A) CLEAR [facility] Specific [place] UA 1.015 1.001 - 1.035 [facility] pH UA < OR = 5.0 5.0 - 8.0 [facility] Glucose UA NEGATIVE NEGATIVE [facility] Bilirubin UA NEGATIVE NEGATIVE [facility] Ketone UA NEGATIVE NEGATIVE [facility] Blood UA NEGATIVE NEGATIVE [facility] Protein UA NEGATIVE NEGATIVE [facility] Nitrite NEGATIVE NEGATIVE [facility] Leukocyte Esterase 3+(A) NEGATIVE [facility] WBC UA > OR = 60(A) < OR = 5 /HPF [facility] RBC UA NONE SEEN < OR = 2 /HPF [facility] Epithelial Cell UA 10-20(A) < OR = 5 /HPF [facility] Transitional Epithelial Cells [facility] Renal Epithelial Cells [facility] Bacteria UA MODERATE(A) NONE SEEN /HPF [facility] Calcium Oxalate Crystals [facility] Triple Phosphate Crystals [facility] Uric Acid Crystals [facility] Amorphous UA [facility] Crystals UA [facility] Hyaline Casts NONE SEEN NONE SEEN /LPF [facility] Comment: Test Performed at: [facility] [address] [place] [address] ??[phone] ASPEN HOLLINGSWORTH DO,MPH Granular Casts [facility] Casts UA [facility] Yeast [facility] Comments [facility] Note [facility] Comment: Test Performed at: [facility] [address] [place] [address] ??[phone] ASPEN HOLLINGSWORTH DO,MPH 01/22/2022 7:46 AM ECCLESIASTICAL WORKER 01/22/2022 7:47 AM ECCLESIASTICAL WORKER Perez Cervantes MD LAB - URINALYSIS ORD ERABLES [facility] [address] [place] [address] * COMPREHENSIVE METABOLIC PANEL (01/22/2022 7:46 AM ECCLESIASTICAL WORKER) Pathologist [facility] Glucose 86 65 - 99 mg/dL [facility] Comment: ? Fasting reference interval BUN 19 7 - 25 mg/dL [facility] Creatinine 0.81 0.50 - 1.05 mg/dL [facility] Comment: For patients >49 years of age, the reference limit for Creatinine is approximately 13% higher for people identified as -German. eGFR by MDRD 80 > OR = 60 mL/min/1 .73m2 [facility] eGFR by MDRD 93 > OR = 60 mL/min/1 .73m2 [facility] BUN/Creatinine Ratio NOT APPLICABLE 6 - 22 (calc) [facility] Sodium 139 135 - 146 mmol/L [facility] Potassium 4.1 3.5 - 5.3 mmol/L [facility] Chloride 102 98 - 110 mmol/L [facility] CO2 28 20 - 32 mmol/L [facility] Calcium 9.9 8.6 - 10.4 mg/dL [facility] Protein Total 7.8 6.1 - 8.1 g/dL [facility] Albumin 4.7 3.6 - 5.1 g/dL [facility] Globulin Total 3.1 1.9 - 3.7 g/dL (calc) [facility] Albumin/Globulin Ratio 1.5 1.0 - 2.5 (calc) [facility] Bilirubin Total 0.6 0.2 - 1.2 mg/dL [facility] Alkaline Phosphatase 87 37 - 153 U/L [facility] AST 25 10 - 35 U/L [facility] ALT 25 6 - 29 U/L [facility] Comment: Test Performed at: [facility] [address] [place] [address] ??[phone] ASPEN HOLLINGSWORTH DO,MPH 01/22/2022 7:46 AM ECCLESIASTICAL WORKER 01/22/2022 7:47 AM ECCLESIASTICAL WORKER Perez Cervantes MD LAB - CHEMISTRY GERA DAVID [facility] [address] [place] [phone] documented in this encounter Visit Diagnoses Not on filedocumented in this encounter Care Teams Curator [employer] Relationship Specialty Start Date End Date Jaspreet Pearl MD PCP - General 08/08/18 03/26/24 documented as of this encounter
--- OUTSIDE RECORDS SUMMARY | 2024-11-13 17:07 | XMS_ITS | Encounter Summary ---
Author Organization [facility] Address [address] [facility] [place] [address] Care Team Providers Care Biodiesel Technology Manager Name Role Phone Jaspreet Pearl MD Primary Care Provider + Encounter Details Date Type Department Care Team (Late Contact Info) Description 06/20/2021 Orders Only [facility] [address] [place] [address], [place] [address] Perez Cervantes MD [address] [place] [address] [place] [address] Encounter for therapeutic drug monitoring ; Polyarthritis [...] have Coronavirus / COVID-19? No / Unsure 06/09/2021 3:38 PM CDT documented as of this encounter Plan of Treatment Upcoming Encounters Date Type Department Care Team (Late Contact Info) Description 03/27/2025 1:00 PM CDT Office Visit [facility] - Rheumatology [address] [place] [address] Perez Cervantes MD [address] [place] [address] documented as of this encounter Procedures Procedure Name Priority Date/Time Associated Diagnosis Comments QUANTIFERON-TB GOLD PLUS 1-TUBE 06/20/2021 7:32 AM CDT CULTURE URINE REFLEXED II 06/20/2021 7:32 AM CDT URINALYSIS W/MICROSCOPIC REFLEX TO CULTURE 06/20/2021 7:32 AM CDT C-REACTIVE PROTEIN 06/20/2021 7: 32 AM CDT CULTURE URINE 06/20/2021 7:32 AM CDT ERYTHROCYTE SEDIMENTATION RATE 06/20/2021 7:32 AM CDT CBC W AUTO DIFFERENTIAL 06/20/2021 7:32 AM CDT COMPREHENSIVE METABOLIC PANEL 06/20/2021 7:32 AM CDT documented in this encounter Results * CULTURE URINE (06/20/2021 7:32 AM CDT) Culture [facility] Comment: ??CULTURE, URINE, ROUTINE ?Micro Number: ?[id number] ??Test Status: ? Final ??Specimen Source: ?? Urine ??Specimen Quality: ??Adequate ??Result: ?Growth of mixed erin was isolated, suggesting ? probable contamination. No further testing will ? be performed. If clinically indicated, ? recollection using a method to minimize ? contamination, with prompt transfer to Urine ? Culture Transport Tube, is recommended. Test Performed at: [address] ??[phone] NAVID SCOTT MD 06/20/2021 7:32 AM CDT 06/20/2021 7:34 AM CDT Perez Cervantes MD LAB - MICROBIOLOGY O JOEY Performing Organization Address [facility] Co de Phone Number [address] [address] * CULTURE URINE REFLEXED II (06/20/2021 7:32 AM CDT) Pathologist [facility] Reflexive Urine Culture See Below [facility] Comment: CULTURE INDICATED - RESULTS TO FOLLOW Test Performed at: [address] ??[phone] NAVID SCOTT MD 06/20/2021 7:32 AM CDT 06/20/2021 7:34 AM CDT Perez Cervantes MD LAB - MICROBIOLOGY O JOEY Performing Organization Address [facility] Co de Phone Number [address] [address] * QUANTIFERON-TB GOLD PLUS 1-TUBE (06/20/2021 7:32 AM CDT) Pathologist [facility] QuantiFERON TB Gold Plus NEGATIVE NEGATIVE [facility] Comment: Negative test result. M. tuberculosis complex infection unlikely. NIL 0.03 IU/mL [facility] MITOGEN MINUS NIL RESULT >10.00 IU/mL [facility] TB1-NIL 0.00 IU/mL [facility] TB2-NIL 0.00 IU/mL [facility] Comment: [...] T-lymphocytes. For additional information, please refer to https://[employer]faq/KAV666 (This link is being provided for informational/ educational purposes only.) Test Performed at: [facility] [address] [place] [address] ??[phone] ASPEN HOLLINGSWORTH DO,MPH 06/20/2021 7:32 AM CDT 06/20/2021 7:34 AM CDT Perez Cervantes MD LAB - CHEMISTRY GERA DAVID Performing Organization Address [facility] de Phone Number [facility] [address] [place] [address] * C-REACTIVE PROTEIN (06/20/2021 7:32 AM CDT) Pathologist [facility] C-Reactive Protein 2.7 <8.0 mg/L [facility] Comment: Test Performed at: [employer] [address] [place] [address] ??[phone] ASPEN HOLLINGSWORTH DO,MPH 06/20/2021 7:32 AM CDT 06/20/2021 7:34 AM CDT Perez Cervantes MD LAB - CHEMISTRY GERA DAVID Performing Organization Address [facility] de Phone Number [facility] [address] [place] [address] * CBC WITH DIFFERENTIAL (06/20/2021 7:32 AM CDT) Pathologist [facility] White Blood Cell Count 4.3 3.8 - 10.8 Thousand/u L [facility] RBC 4.06 3.80 - 5.10 Million/uL [facility] Hemoglobin 12.4 11.7 - 15.5 g/dL [facility] Hematocrit 38.0 35.0 - 45.0 % [facility] MCV 93.6 80.0 - 100.0 fL [facility] MCH 30.5 27.0 - 33.0 pg [facility] MCHC 32.6 32.0 - 36.0 g/dL [facility] RDW 14.2 11.0 - 15.0 % [facility] Platelet Count 195 140 - 400 Thousand/u L [facility] MPV 11.0 7.5 - 12.5 fL [facility] Neutrophil Absolute 2012 1500 - 7800 cells/uL [facility] Lymphocytes Absolute 1518 850 - 3900 cells/uL [facility] Absolute Monocytes 628 200 - 950 cells/uL [facility] Eosinophils Absolute 120 15 - 500 cells/uL [facility] Basophils Absolute 22 0 - 200 cells/uL [facility] Granulocytes % 46.8 % [facility] Lymphocytes % 35.3 % [facility] Monocytes % 14.6 % [facility] Eosinophils % 2.8 % [facility] Basophils % 0.5 % [facility] Comment: Test Performed at: [facility] ??[phone] NAVID SCOTT MD 06/20/2021 7:32 AM CDT 06/20/2021 7:34 AM CDT Perez Cervantes MD LAB - HEMATOLOGY ORD ERABLES Performing Organization Address [facility] Co de Phone Number [address] [address] * ERYTHROCYTE SEDIMENTATION RATE (06/20/2021 7:32 AM CDT) Erythrocyte Sedimentation Rate Westergren 11 < OR = 30 mm/h [facility] Comment: Test Performed at: [facility] ??[phone] NAVID SCOTT MD 06/20/2021 7:32 AM CDT 06/20/2021 7:34 AM CDT Perez Cervantes MD LAB - HEMATOLOGY ORD ERABLES Performing Organization Address [facility] Co de Phone Number [address] [address] * (ABNORMAL) URINALYSIS W/MICROSCOPIC REFLEX TO CULTURE (06/20/2021 7:32 AM CDT) Color UA YELLOW YELLOW [facility] Appearance CLOUDY(A) CLEAR [facility] Specific [place] UA 1.020 1.001 - 1.035 [facility] pH UA 6.0 5.0 - 8.0 [facility] Glucose UA NEGATIVE NEGATIVE [facility] Bilirubin UA NEGATIVE NEGATIVE [facility] Ketone UA NEGATIVE NEGATIVE [facility] Blood UA NEGATIVE NEGATIVE [facility] Protein UA NEGATIVE NEGATIVE [facility] Nitrite NEGATIVE NEGATIVE [facility] Leukocyte Esterase 3+(A) NEGATIVE [facility] WBC UA 20-40(A) < OR = 5 /HPF [facility] RBC [...] SEEN /LPF [facility] Comment: Test Performed at: [facility] ??[phone] NAVID SCOTT MD Granular Casts [facility] Casts UA [facility] Yeast [facility] Comments [facility] Note [facility] Comment: Test Performed at: [facility] ??[phone] NAVID SCOTT MD 06/20/2021 7:32 AM CDT 06/20/2021 7:34 AM CDT Perez Cervantes MD LAB - URINALYSIS ORD ERABLES [address] [address] * COMPREHENSIVE METABOLIC PANEL (06/20/2021 7:32 AM CDT) Glucose 86 65 - 99 mg/dL [facility] Comment: ? Fasting reference interval BUN 17 7 - 25 mg/dL [facility] Creatinine 0.82 0.50 - 1.05 mg/dL [facility] Comment: For patients >49 years of age, the reference limit for Creatinine is approximately 13% higher for people identified as -[place]. eGFR by MDRD 79 > OR = 60 mL/min/1 .73m2 [facility] eGFR by MDRD 91 > OR = 60 mL/min/1 .73m2 [facility] BUN/Creatinine Ratio NOT APPLICABLE 6 - (calc) [facility] Sodium 139 135 - 146 mmol/L [facility] Potassium 4.4 3.5 - 5.3 mmol/L [facility] Chloride 103 98 - 110 mmol/L [facility] CO2 25 20 - 32 mmol/L [facility] Calcium 9.7 8.6 - 10.4 mg/dL [facility] Protein Total 7.3 6.1 - 8.1 g/dL [facility] Albumin 4.4 3.6 - 5.1 g/dL [facility] Globulin Total 2.9 1.9 - 3.7 g/dL (calc) [facility] Albumin/Globulin Ratio 1.5 1.0 - 2.5 (calc) [facility] Bilirubin Total 0.5 0.2 - 1.2 mg/dL [facility] Alkaline Phosphatase 90 37 - 153 U/L [facility] AST 22 10 - 35 U/L [facility] ALT 19 6 - 29 U/L [facility] Comment: Test Performed at: [facility] [address] [place] ??[phone] ASPEN HOLLINGSWORTH DO,MPH 06/20/2021 7:32 AM CDT 06/20/2021 7:34 AM CDT Perez Cervantes MD LAB - CHEMISTRY GERA DAVID [facility] Organization Address City/State/[facility] Co de Phone Number [facility] [address] [place] [address] documented in this encounter Visit Diagnoses Diagnosis Encounter for therapeutic drug monitoring- Primary Polyarthritis Unspecified polyarthropathy or polyarthritis, site unspecified documented in this encounter Care Teams Biodiesel Technology Manager Relationship Specialty Start Date End Date Jaspreet Pearl MD PCP - General 08/08/18 03/26/24 documented as of this encounter
--- OUTSIDE RECORDS SUMMARY | 2024-11-13 17:07 | XMS_ITS | Encounter Summary ---
Author Organization [facility] Address [address] [facility] [place] [address] Care Team Providers Care Sheep Herder Name Role Phone Jaspreet Pearl MD Primary Care Provider + Encounter Details Date Type Department Care Team (Late Contact Info) Description 05/27/2020 Orders Only [facility] [address] [place] [address] Perez Cervantes MD [address] [place] [address] 2L [place] [address] Social History Tobacco Use Types [...] Office Visit [facility] - Rheumatology [address] [place] [address], [place] [phone] Perez Cervantes MD [address] [place] [address] 2L [place] [phone] documented as of this encounter Procedures Procedure Name Priority Date/Time Associated Diagnosis Comments QUANTIFERON-TB GOLD PLUS 1-TUBE 05/27/2020 8:42 AM CDT CULTURE URINE REFLEXED I 05/27/2020 8:42 AM CDT documented in this encounter Results * QUANTIFERON-TB GOLD PLUS 1-TUBE (05/27/2020 8:42 AM CDT) QuantiFERON TB Gold Plus NEGATIVE NEGATIVE [facility] Comment: Negative test result. M. tuberculosis complex infection unlikely. NIL 0.03 IU/mL [facility] MITOGEN MINUS NIL RESULT 7.26 IU/mL [facility] TB1-NIL 0.00 IU/mL [facility] TB2-NIL [...] T-lymphocytes. For additional information, please refer to https://education.JournallyMe/faq/YZW271 (This link is being provided for informational/ educational purposes only.) Test Performed at: [facility] ??[phone] ASPEN HOLLINGSWORTH DO,MPH 05/27/2020 8:42 AM CDT 05/27/2020 8:43 AM CDT Perez Cervantes MD LAB - CHEMISTRY GERA DAVID [facility] [address] [place] [address] * CULTURE URINE REFLEXED I (05/27/2020 8:42 AM CDT) Reflexive Urine Culture NO CULTURE INDICATED [facility] Comment: Test Performed at: [facility] [address] [place], [place] ??[address] ASPEN HOLLINGSWORTH DO,MPH 05/27/2020 8:42 AM CDT 05/27/2020 8:43 AM CDT Perez Cervantes MD LAB - MICROBIOLOGY O RDERABLES Performing Organization Address City/State/[facility] Co ms Phone Number [facility] [address] [place] [address] documented in this encounter Visit Diagnoses Not on filedocumented in this encounter Care Teams Sheep Herder Relationship Specialty Start Date End Date Jaspreet Pearl MD PCP - General 08/08/18 03/26/24 documented as of this encounter
--- OUTSIDE RECORDS SUMMARY | 2024-11-13 17:07 | XMS_ITS | Encounter Summary ---
Author Organization [facility] Address [address] [place] [address] Care Team Providers Care All Source Intelligence Name Role Phone Jaspreet Pearl MD Primary Care Provider + Encounter Details Date Type Department Care Team (Late st Contact Info) Description 05/02/2021 Orders Only [facility] [address] [place] [phone] Perez Cervantes MD [address] [place] [address] 2[place] [phone] Social History Tobacco Use Types Packs/Day Years [...] Visit [facility] [address] [place] [phone] Perez Cervantes MD [address] [place] [address] 2L [place] [phone] documented as of this encounter Procedures Procedure Name Priority Date/Time Associated Diagnosis Comments CULTURE URINE REFLEXED I 05/02/2021 7:33 AM CDT URINALYSIS W/MICROSCOPIC REFLEX TO CULTURE 05/02/2021 7:33 AM CDT C-REACTIVE PROTEIN 05/02/2021 7: 33 AM CDT ERYTHROCYTE SEDIMENTATION RATE 05/02/2021 7:33 AM CDT CBC W AUTO DIFFERENTIAL 05/02/2021 7:33 AM CDT COMPREHENSIVE METABOLIC PANEL 05/02/2021 7:33 AM CDT documented in this encounter Results * CULTURE URINE REFLEXED I (05/02/2021 7:33 AM CDT) Reflexive Urine Culture See Below [facility] Comment: NO CULTURE INDICATED Test Performed at: [facility] [address] [place], [place] ??[phone] ASPEN HOLLINGSWORTH DO,MPH 05/02/2021 7:33 AM CDT 05/02/2021 7:34 AM CDT Perez Cervantes MD LAB - MICROBIOLOGY O JOEY Performing Organization Address [facility] Co de Phone Number [facility] [address] [place] [address] * C-REACTIVE PROTEIN (05/02/2021 7:33 AM CDT) C-Reactive Protein 2.6 <8.0 mg/L [facility] Comment: Test Performed at: [facility] [place] [address] [place], [place] ??[phone] ASPEN HOLLINGSWORTH DO,MPH 05/02/2021 7:33 AM CDT 05/02/2021 7:34 AM CDT Perez Cervantes MD LAB - CHEMISTRY GERA DAVID [facility] [address] [place] [address] * (ABNORMAL) CBC WITH DIFFERENTIAL (05/02/2021 7:33 AM CDT) White Blood Cell Count 4.0 3.8 - 10.8 Thousand/ uL [facility] RBC 4.05 3.80 - 5.10 Million/u L [facility] Hemoglobin 12.2 11.7 - 15.5 g/dL [facility] Hematocrit 37.6 35.0 - 45.0 % [facility] MCV 92.8 80.0 - 100.0 fL [facility] MCH 30.1 27.0 - 33.0 pg [facility] MCHC 32.4 32.0 - 36.0 g/dL [facility] RDW 15.6(H) 11.0 - 15.0 % [facility] Platelet Count 185 140 - 400 Thousand/ uL [facility] MPV 11.0 7.5 - 12.5 fL [facility] Neutrophil Absolute 1812 1500 - 7800 cells/uL [facility] Lymphocytes Absolute 1640 850 - 3900 cells/uL [facility] Absolute Monocytes 436 200 - 950 cells/uL [facility] Eosinophils Absolute 92 15 - 500 cells/uL [facility] Basophils Absolute 20 0 - 200 cells/uL [facility] Granulocytes % 45.3 % [facility] Lymphocytes % 41.0 % [facility] Monocytes % 10.9 % [facility] Eosinophils % 2.3 % [facility] Basophils % 0.5 % [facility] Comment: Test Performed at: [facility] ??[phone] NAVID SCOTT MD 05/02/2021 7:33 AM CDT 05/02/2021 7:34 AM CDT Perez Cervantes MD LAB - HEMATOLOGY ORD ERABLES [facility] [id number] [place] [address] * ERYTHROCYTE SEDIMENTATION RATE (05/02/2021 7:33 AM CDT) Pathologist [facility] Erythrocyte Sedimentation Rate Westergren 11 < OR = 30 mm/h [facility] Comment: Test Performed at: [facility] ??[phone] NAVID SCOTT MD 05/02/2021 7:33 AM CDT 05/02/2021 7:34 AM CDT Perez Cervantes MD LAB - HEMATOLOGY ORD ERABLES Performing Organization Address [facility] de Phone Number [facility] [address] [place] [address] * URINALYSIS W/MICROSCOPIC REFLEX TO CULTURE (05/02/2021 7:33 AM CDT) Color UA YELLOW YELLOW [facility] Appearance CLEAR CLEAR [facility] Specific [place] UA 1.009 1.001 - 1.035 [facility] pH UA 7.0 5.0 - 8.0 [facility] Glucose UA NEGATIVE [...] SEEN /LPF [facility] Comment: Test Performed at: [place] ??[address] ASPEN HOLLINGSWORTH DO,MPH Granular Casts [facility] Casts UA [facility] Yeast [facility] Comments [facility] Note [facility] Comment: Test Performed at: [facility] [address] [place], [place] ??[phone] ASPEN HOLLINGSWORTH DO,MPH 05/02/2021 7:33 AM CDT 05/02/2021 7:34 AM CDT Perez Cervantes MD LAB - URINALYSIS ORD ERABLES Performing Organization Address [facility] Co de Phone Number [facility] [address] [place] [address] * (ABNORMAL) COMPREHENSIVE METABOLIC PANEL (05/02/2021 7:33 AM CDT) Glucose 93 65 - 99 mg/dL [facility] Comment: ? Fasting reference interval BUN 17 7 - 25 mg/dL [facility] Creatinine 0.87 0.50 - 1.05 mg/dL [facility] Comment: For patients >49 years of age, the reference limit for Creatinine is approximately 13% higher for people identified as -[place]. eGFR by MDRD 73 > OR = 60 mL/min/1 .73m2 [facility] eGFR by MDRD 85 > OR = 60 mL/min/1 .73m2 [facility] BUN/Creatinine Ratio NOT APPLICABLE 6 - 22 (calc) [facility] Sodium 140 135 - 146 mmol/L [facility] Potassium 4.4 3.5 - 5.3 mmol/L [facility] Chloride 106 98 - 110 mmol/L [facility] CO2 23 20 - 32 mmol/L [facility] Calcium 9.3 8.6 - 10.4 mg/dL [facility] Protein Total 6.9 6.1 - 8.1 g/dL [facility] Albumin 4.4 3.6 - 5.1 g/dL [facility] Globulin Total 2.5 1.9 - 3.7 g/dL (calc) [facility] Albumin/Globulin Ratio 1.8 1.0 - 2.5 (calc) [facility] Bilirubin Total 0.5 0.2 - 1.2 mg/dL [facility] Alkaline Phosphatase 98 37 - 153 U/L [facility] AST 28 10 - 35 U/L [facility] ALT 35(H) 6 - 29 U/L [facility] Comment: Test Performed at: [facility] [address] [place], [place] ??[phone] ASPEN HOLLINGSWORTH DO,MPH 05/02/2021 7:33 AM CDT 05/02/2021 7:34 AM CDT Perez Cervantes MD LAB - CHEMISTRY GERA DAVID [facility] Organization Address City/State/[facility] Co wi Phone Number [facility] [address] [place] [address] documented in this encounter Visit Diagnoses Not on filedocumented in this encounter Care Teams All Source Intelligence Relationship Specialty Start Date End Date Jaspreet Pearl MD PCP - General 08/08/18 03/26/24 documented as of this encounter
--- OUTSIDE RECORDS SUMMARY | 2024-11-13 17:07 | XMS_ITS | Encounter Summary ---
Author Organization [facility] Address [address] [place] [address] Care Team Providers Care Sheet Metal Worker Apprentice Name Role Phone Jaspreet Pearl MD Primary Care Provider + Encounter Details Date Type Department Care Team (Late st Contact Info) Description 08/29/2021 Orders Only [facility] [address] [place] [phone] Perez Cervantes MD [address] [place] [address] 2[place] [phone] Social History Tobacco Use Types Packs/Day Years [...] Visit [facility] [address] [place] [phone] Perez Cervantes MD [address] [place] [address] 2L [place] [phone] documented as of this encounter Visit Diagnoses Not on filedocumented in this encounter Care Teams Sheet Metal Worker Apprentice Relationship Specialty Start Date End Date Jaspreet Pearl MD PCP - General 08/08/18 03/26/24 documented as of this encounter
--- OUTSIDE RECORDS SUMMARY | 2024-11-13 17:07 | XMS_ITS | Encounter Summary ---
Author Organization [facility] Address [address] [facility] [address] Care Team Providers Care Land Acquisition Analyst Name Role Phone Jaspreet Pearl MD Primary Care Provider + Reason for Visit * Reason Comments Arthritis Encounter Details Date Type Department Care Team (Late st Contact Info) Description 06/04/2020 3:00 PM CDT Office Visit [facility] Rheumatology [address] [place] [address] Perez Cervantes MD [address] [address] Encounter for therapeutic drug monitoring (Primary Dx) Social History Tobacco Use Types [...] Sign Reading Time Taken Comments Blood Pressure 120/74 06/04/2020 2:39 PM CDT Pulse - - Temperature 37.1 ??C (98.7 ??F) 06/04/2020 2:39 PM CD T Respiratory Rate - - Oxygen Saturation - - Inhaled Oxygen Concentration - - Weight 75.3 kg (166 lb) 06/04/2020 2:39 PM CDT Height 172.7 cm (5' 8 ) 06/04/2020 2:39 PM CDT Body Mass Index 25.24 06/04/2020 2:39 PM CDT documented in this encounter Progress Notes * Perez Cervantes MD - 06/04/2020 3:00 PM CDT (Prob #1) Polyarthritis (Abs All Negative) (Prob #2) OA Hands (Labs) Recent Labs Component Name 05/27/20 0842 04/12/20 0930 10/20/19 0738 01/07/18 0744 10/22/17 0734 08/13/17 0734 WBC 4.6 3.8 4.2 - 4.4 4.3 3.7* RBC 4.18 4.19 4.27 - 4.14 4.33 4.31 HGB 12.6 12.6 13.0 - 12.5 13.1 13.0 HCT 38.2 38.5 39.7 - 37.8 40.0 39.4 MCV 91.4 91.9 93.0 - 91.3 92.4 91.4 MCHC 33.0 32.7 32.7 - 33.1 32.8 33.1 PLTCOUNT 216 227 234 - - - - NEUTPCT - - - - 55.7 60.3 65.4 LYMPHPCT 37.0 36.6 34.1 - - - - EOSINPCT 2.0 1.6 1.4 - - - - BASOPHILPCT 0.7 0.5 0.7 - - - - NEUTABS - - - - 2,451 2,593 2,420 - = values in this interval not displayed. ESR 14; CRP 0.31 Quant Gold negative UA WNL; Recent Labs Component Name 05/27/20 0842 04/12/20 0930 10/20/19 0738 SODIUM 140 141 141 POTASSIUM 4.0 4.8 4.4 CHLORIDE 105 105 103 CO2 24 27 30 BUN 16 16 19 CREATININE 0.68 0.81 0.81 GLUCOSE 85 87 80 CALCIUM 9.7 9.8 9.7 ALT 24 24 21 ALKPHOS 105 103 101 AST 19 20 20 TBIL 0.4 0.6 0.5 TPROT 7.1 7.2 7.0 EGFR 97 81 81 EGFRAFR 113 93 94 ALBUMIN 4.4 4.6 4.4 (Subj) Patient remains on 50 mg Enbrel SQ/week, 20 mg MTX/week, 1 mg FA/d, and 1 g Nabumetone bid+ other meds. Patient doing fairly well. Minimal AM stiffness. No skin rashes, mucosal ul;cers, or systemic complaints. Had sinus/tonsillitis last month improved on Penicillin with no fever. No other COVID symptoms. No more problems with Dental implants. Two Basal Cell [place] removed. Rest of ROS negative. Past/Social/Family History reviewed. (Obj) BP 120/74 Temp 98.7 ??F (37.1 ??C) (Oral) Ht 5' 8 (1.727 m) Wt 166 lb (75.3 kg) BMI 25.24 kg/m2 (Skin) No rashes or eruptions (HEENT) No mucosal ulcers. Moist membranes. No parotid fullness (Neck) No adenopathy/thyromegaly; (Back) No LS/SI tenderness; (general) Unremarkable (Extrem) HNs DIPs/BNs 5th PIPs/SKILLED NURSING prominence; 1-3rd MCPs SfT0; 2-4th MTPs sfT1; No other donta synovitis. MS= bilat; (Assess) Clinically stable (Plan) Continue same meds with labs q 8 weeks. CXR today. RTO in 6 months. Perez Cervantes MD, FACP, FAAP, MACR Liquor Runner and Pediatric Rheumatology Professor of Internal Medicine,Pediatrics, and Molecular Immunology [facility] documented in this encounter Plan of Treatment Upcoming Encounters Date Type Department Care Team (Late st Contact Info) Description 03/27/2025 1:00 PM CDT Office Visit [facility] - Rheumatology [address] [place] [address], [place] [phone] Perez Cervantes MD [address] [place] [address] 2L [place] [address] documented as of this encounter Results * XR CHEST 2VW (06/04/2020 3:55 PM CDT) Anatomical Region Laterality Modality Chest Radiographic Corin ging 06/04/2020 3:57 PM CDT Impressions 06/05/2020 8:11 AM CDT FINDINGS/IMPRESSION: There is no focal consolidation, pleural effusion, or pneumothorax. The cardiomediastinal silhouette is normal. The visible bony thorax is intact. Dictated by Brodie Henry MD (founder ceo & president). Dr. STALIN Osorio have personally reviewed and interpreted this examination/study. This report was electronically signed by STALIN SOARES ??on 06/05/2020 8:11 AM . Narrative 06/05/2020 8:11 AM CDT EXAMINATION: XR CHEST 2VW HISTORY: Z51.81: Encounter for therapeutic drug monitoring COMPARISON: Chest radiograph from 06/05/2019 Procedure Note Stalin Soares MD - 06/05/2020 EXAMINATION: XR CHEST 2VW HISTORY: Z51.81: Encounter for therapeutic drug monitoring COMPARISON: Chest radiograph from 06/05/2019 FINDINGS/IMPRESSION: There is no focal consolidation, pleural effusion, or pneumothorax. The cardiomediastinal silhouette is normal. The visible bony thorax is intact. Dictated by Brodie Henry MD (founder ceo & president). I, Dr. STALIN SOARES have personally reviewed and interpreted this examination/study. This report was electronically signed by STALIN SOARES on 06/05/2020 8:11 AM . Perez Cervantes MD DIAGNOSTIC IMAGING O RDERABLES documented in this encounter Visit Diagnoses Diagnosis Encounter for therapeutic drug monitoring- Primary Encounter for therapeutic drug monitoring documented in this encounter Care Teams Land Acquisition Analyst Relationship Specialty Start Date End Date Jaspreet Pearl MD PCP - General 08/08/18 03/26/24 documented as of this encounter
--- OUTSIDE RECORDS SUMMARY | 2024-11-13 17:07 | XMS_ITS | Encounter Summary ---
Author Organization [facility] Address [address] [facility] [place] [address] Care Team Providers Care Jewel Inspector Name Role Phone Jaspreet Pearl MD Primary Care Provider + Reason for Visit * Reason Onset Date Comments General 10/31/2021 Encounter Details Date Type Department Care Team (Late st Contact Info) Description 10/31/2021 Telephone [facility] [address] [place] [address], [place] [phone] Perez Cervantes MD [address] [place] [address] [place] [address] General Social History Tobacco Use Types Packs/Day Years [...] encounter Miscellaneous Notes * Telephone Encounter - Lali Avalos - 10/31/2021 12:19 PM CST Pt. LVM regarding wanting lab requisitions from 10/31/2021 faxed to [employer] , which I did this morning. [employer] Fax number [phone] Faxed successfully. CAL LEGAL INVESTIGATOR documented in this encounter Plan of Treatment Upcoming Encounters Date Type Department Care Team (Late st Contact Info) Description 03/27/2025 1:00 PM CDT Office Visit [facility] - Rheumatology [address] [place] [address], [place] [phone] Perez Cervantes MD [address] [place] [address] DIV [place] [phone] documented as of this encounter Visit Diagnoses Not on filedocumented in this encounter Care Teams Jewel Inspector Relationship Specialty Start Date End Date Jaspreet Pearl MD PCP - General 08/08/18 03/26/24 documented as of this encounter
--- OUTSIDE RECORDS SUMMARY | 2024-11-13 17:07 | XMS_ITS | Encounter Summary ---
Author Organization [facility] Address [address] [facility] [place] [address] Care Team Providers Care Floor Grinder Name Role Phone Jaspreet Pearl MD Primary Care Provider + Reason for Visit * Reason Comments Refill Request Encounter Details Date Type Department Care Team (Late st Contact Info) Description 03/30/2022 Refill [facility] [address] [place] [address], [place] [address] Perez Cervantes MD [address] [place] [address] [place] [address] Refill Request Social History Tobacco [...] encounter Miscellaneous Notes * Telephone Encounter - Tayla Alston - 03/30/2022 11:47 AM CDT Refill Request Hans Pascual NICK: 1.24.22 NOV scheduled: 07/28/2022 LRF: 4.12. Qty Disp: 30 # of refills: 11 Allergies: Allergies Allergen Reactions ??? Levaquin [Levofloxacin] Nausea and/or Vomiting and Psychiatric hallucinations Pended Medication Order: Requested Prescriptions Pending Prescriptions Disp Refills ??? folic acid (FOLVITE) 1 MG tablet [Pharmacy Med Name: FOLIC ACID 1 MG TABLET] 30 tablet 11 Sig: TAKE 1 TABLET BY MOUTH DAILY documented in this encounter Plan of Treatment Upcoming Encounters Date Type Department Care Team (Late st Contact Info) Description 03/27/2025 1:00 PM CDT Office Visit [facility] - Rheumatology [address] [place] [address], [facility] [place] [phone] Perez Cervantes MD [address] [place] [address] [place] [phone] documented as of this encounter Visit Diagnoses Diagnosis Polyarthritis Unspecified polyarthropathy or polyarthritis, site unspecified documented in this encounter Care Teams Floor Grinder Relationship Specialty Start Date End Date Jaspreet Pearl MD PCP - General 08/08/18 03/26/24 documented as of this encounter
--- OUTSIDE RECORDS SUMMARY | 2024-11-13 17:07 | XMS_ITS | Encounter Summary ---
Author Organization [facility] Address [address] [facility] [place] [address] Care Team Providers Care Filling Layer Up Name Role Phone Jaspreet Pearl MD Primary Care Provider + Encounter Details Date Type Department Care Team (Late Contact Info) Description 10/31/2021 Orders Only [facility] [address] [place] [phone] Perez Cervantes MD [address] [place] [address] 2L [place] [phone] Polyarthritis ; Encounter for therapeutic drug monitoring [...] Office Visit [facility] - Rheumatology [address] [place] [phone] Perez Cervantes MD [address] [place] [address] 2L [place] [phone] documented as of this encounter Procedures Procedure Name Priority Date/Time Associated Diagnosis Comments CULTURE URINE REFLEXED II 10/31/2021 7:32 AM SALES REPRESENTATIVE EDUCATION COURSES URINALYSIS W/MICROSCOPIC REFLEX TO CULTURE 10/31/2021 7:32 AM SALES REPRESENTATIVE EDUCATION COURSES C-REACTIVE PROTEIN 10/31/2021 7: 32 AM SALES REPRESENTATIVE EDUCATION COURSES CULTURE URINE 10/31/2021 7:32 AM SALES REPRESENTATIVE EDUCATION COURSES ERYTHROCYTE SEDIMENTATION RATE 10/31/2021 7:32 AM SALES REPRESENTATIVE EDUCATION COURSES CBC W AUTO DIFFERENTIAL 10/31/2021 7:32 AM SALES REPRESENTATIVE EDUCATION COURSES COMPREHENSIVE METABOLIC PANEL 10/31/2021 7:32 AM SALES REPRESENTATIVE EDUCATION COURSES documented in this encounter Results * CULTURE URINE (10/31/2021 7:32 AM SALES REPRESENTATIVE EDUCATION COURSES) Culture [facility] Comment: ??CULTURE, URINE, ROUTINE ?Micro Number: ?[id number] ??Test Status: ? Final ??Specimen Source: ?? Urine ??Specimen Quality: ??Adequate ??Result: ?Growth of mixed erin was isolated, suggesting ? probable contamination. No further testing will ? be performed. If clinically indicated, ? recollection using a method to minimize ? contamination, with prompt transfer to Urine ? Culture Transport Tube, is recommended. Test Performed at: [facility] ??[phone] NAVID SCOTT MD 10/31/2021 7:32 AM SALES REPRESENTATIVE EDUCATION COURSES 10/31/2021 7:34 AM SALES REPRESENTATIVE EDUCATION COURSES Perez Cervantes MD LAB - MICROBIOLOGY O JOEY Performing Organization Address [facility] de Phone Number [address] [address] * CULTURE URINE REFLEXED II (10/31/2021 7:32 AM SALES REPRESENTATIVE EDUCATION COURSES) Pathologist [facility] Reflexive Urine Culture See Below [facility] Comment: CULTURE INDICATED - RESULTS TO FOLLOW Test Performed at: [facility] ??[phone] NAVID SCOTT MD 10/31/2021 7:32 AM SALES REPRESENTATIVE EDUCATION COURSES 10/31/2021 7:34 AM SALES REPRESENTATIVE EDUCATION COURSES Perez Cervantes MD LAB - MICROBIOLOGY O JOEY Performing Organization Address [facility] de Phone Number [address] [address] * C-REACTIVE PROTEIN (10/31/2021 7:32 AM SALES REPRESENTATIVE EDUCATION COURSES) Pathologist [facility] C-Reactive Protein 6.1 <8.0 mg/L [facility] Comment: Test Performed at: [facility] [address] ??[phone] ASPEN HOLLINGSWORTH DO,MPH 10/31/2021 7:32 AM SALES REPRESENTATIVE EDUCATION COURSES 10/31/2021 7:34 AM SALES REPRESENTATIVE EDUCATION COURSES Perez Cervantes MD LAB - CHEMISTRY GERA DAVID Performing Organization Address [facility] de Phone Number [facility] [address] [place] [address] * (ABNORMAL) CBC WITH DIFFERENTIAL (10/31/2021 7:32 AM SALES REPRESENTATIVE EDUCATION COURSES) Pathologist [facility] White Blood Cell Count 3.7(L) 3.8 - 10.8 Thousand/ uL [facility] RBC 3.98 3.80 - 5.10 Million/u L [facility] Hemoglobin 12.1 11.7 - 15.5 g/dL [facility] Hematocrit 37.3 35.0 - 45.0 % [facility] MCV 93.7 80.0 - 100.0 fL [facility] MCH 30.4 27.0 - 33.0 pg [facility] MCHC 32.4 32.0 - 36.0 g/dL [facility] RDW 14.4 11.0 - 15.0 % [facility] Platelet Count 184 140 - 400 Thousand/ uL [facility] MPV 11.4 7.5 - 12.5 fL [facility] Neutrophil Absolute 1765 1500 - 7800 cells/uL [facility] Lymphocytes Absolute 1443 850 - 3900 cells/uL [facility] Absolute Monocytes 422 200 - 950 cells/uL [facility] Eosinophils Absolute 59 15 - 500 cells/uL [facility] Basophils Absolute 11 0 - 200 cells/uL [facility] Granulocytes % 47.7 % [facility] Lymphocytes % 39.0 % [facility] Monocytes % 11.4 % [facility] Eosinophils % 1.6 % [facility] Basophils % 0.3 % [facility] Comment: Test Performed at: [facility] ??[phone] NAVID SCOTT MD 10/31/2021 7:32 AM SALES REPRESENTATIVE EDUCATION COURSES 10/31/2021 7:34 AM SALES REPRESENTATIVE EDUCATION COURSES Perez Cervantes MD LAB - HEMATOLOGY ORD ERABLES [address] [address] * (ABNORMAL) URINALYSIS W/MICROSCOPIC REFLEX TO CULTURE (10/31/2021 7:32 AM SALES REPRESENTATIVE EDUCATION COURSES) Color UA DARK YELLOW YELLOW [facility] Appearance CLEAR CLEAR [facility] Specific [place] UA 1.019 1.001 - 1.035 [facility] pH UA 5.5 5.0 - 8.0 [facility] Glucose UA NEGATIVE NEGATIVE [facility] Bilirubin UA NEGATIVE NEGATIVE [facility] Ketone UA NEGATIVE NEGATIVE [facility] Blood UA NEGATIVE NEGATIVE [facility] Protein UA NEGATIVE NEGATIVE [facility] Nitrite NEGATIVE NEGATIVE [facility] Leukocyte Esterase 2+(A) NEGATIVE [facility] WBC UA 40-60(A) < OR = 5 /HPF [facility] RBC [...] SEEN /LPF [facility] Comment: Test Performed at: [facility] ??[phone] NAVID SCOTT MD Granular Casts [facility] Casts UA [facility] Yeast [facility] Comments [facility] Note [facility] Comment: Test Performed at: [facility] ??[phone] NAVID SCOTT MD 10/31/2021 7:32 AM SALES REPRESENTATIVE EDUCATION COURSES 10/31/2021 7:34 AM SALES REPRESENTATIVE EDUCATION COURSES Perez Cervantes MD LAB - URINALYSIS ORD ERABLES Performing Organization Address [facility] Co de Phone Number [address] [address] * ERYTHROCYTE SEDIMENTATION RATE (10/31/2021 7:32 AM SALES REPRESENTATIVE EDUCATION COURSES) Erythrocyte Sedimentation Rate Westergren 14 < OR = 30 mm/h [facility] Comment: Test Performed at: [facility] ??[phone] NAVID SCOTT MD 10/31/2021 7:32 AM SALES REPRESENTATIVE EDUCATION COURSES 10/31/2021 7:34 AM SALES REPRESENTATIVE EDUCATION COURSES Perez Cervantes MD LAB - HEMATOLOGY ORD ERABLES Performing Organization Address [facility] de Phone Number [address] [address] * COMPREHENSIVE METABOLIC PANEL (10/31/2021 7:32 AM SALES REPRESENTATIVE EDUCATION COURSES) Glucose 76 65 - 99 mg/dL [facility] Comment: ? Fasting reference interval BUN 15 7 - 25 mg/dL [facility] Creatinine 0.75 0.50 - 1.05 mg/dL [facility] Comment: For patients >49 years of age, the reference limit for Creatinine is approximately 13% higher for people identified as -[place]. eGFR by MDRD 88 > OR = 60 mL/min/1 .73m2 [facility] eGFR by MDRD 102 > OR = 60 mL/min/1 .73m2 [facility] BUN/Creatinine Ratio NOT APPLICABLE 6 - 22 (calc) [facility] Sodium 142 135 - 146 mmol/L [facility] Potassium 4.1 3.5 - 5.3 mmol/L [facility] Chloride 108 98 - 110 mmol/L [facility] CO2 22 20 - 32 mmol/L [facility] Calcium 9.1 8.6 - 10.4 mg/dL [facility] Protein Total 6.7 6.1 - 8.1 g/dL [facility] Albumin 4.2 3.6 - 5.1 g/dL [facility] Globulin Total 2.5 1.9 - 3.7 g/dL (calc) [facility] Albumin/Globulin Ratio 1.7 1.0 - 2.5 (calc) [facility] Bilirubin Total 0.5 0.2 - 1.2 mg/dL [facility] Alkaline Phosphatase 84 37 - 153 U/L [facility] AST 23 10 - 35 U/L [facility] ALT 22 6 - 29 U/L [facility] Comment: Test Performed at: [facility] ??[phone] ASPEN HOLLINGSWORTH DO,MPH 10/31/2021 7:32 AM SALES REPRESENTATIVE EDUCATION COURSES 10/31/2021 7:34 AM SALES REPRESENTATIVE EDUCATION COURSES Perez Cervantes MD LAB - CHEMISTRY GERA DAVID [facility] Organization Address City/State/[facility] Co de Phone Number [facility] [address] [place] [address] documented in this encounter Visit Diagnoses Diagnosis Polyarthritis- Primary Unspecified polyarthropathy or polyarthritis, site unspecified Encounter for therapeutic drug monitoring documented in this encounter Care Teams Filling Layer Up Relationship Specialty Start Date End Date Jaspreet Pearl MD PCP - General 08/08/18 03/26/24 documented as of this encounter
--- OUTSIDE RECORDS SUMMARY | 2024-11-13 17:07 | XMS_ITS | Encounter Summary ---
Author Organization [facility] Address [address] [facility] [place] [address] Care Team Providers Care Cell Maker Name Role Phone Jaspreet Pearl MD Primary Care Provider + Reason for Visit * Reason Comments Arthritis Encounter Details Date Type Department Care Team (Late st Contact Info) Description 06/09/2021 3:00 PM CDT Office Visit [facility] [address] [place] [address], [place] [address] Perez Cervantes MD [address] [place] [address] [place] [address] Encounter for therapeutic drug monitoring [...] PM CDT documented as of this encounter Last Filed Vital Signs Vital Sign Reading Time Taken Comments Blood Pressure 104/72 06/09/2021 2:48 PM CDT Pulse 66 06/09/2021 2:48 PM CDT Temperature - - Respiratory Rate 16 06/09/2021 2:48 PM CDT Oxygen Saturation 98% 06/09/2021 2:48 PM CDT Inhaled Oxygen Concentration - - Weight 78.9 kg (174 lb) 06/09/2021 2:48 PM CDT Height 172.7 cm (5' 8 ) 06/09/2021 2:48 PM CDT Body Mass Index 26.46 06/09/2021 2:48 PM CDT documented in this encounter Progress Notes * Perez Cervantes MD - 06/09/2021 2:59 PM CDT (Prob #1)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) (Prob #2) OA Hands (Labs) Recent Labs Component Name 05/02/21 0733 03/03/21 1134 02/21/21 0720 03/18/18 0735 01/07/18 0744 10/22/17 0734 10/22/17 0734 08/13/17 0734 08/13/17 0734 WBC 4.0 5.9 4.6 - 4.4 - 4.3 - 3.7* RBC 4.05 4.49 4.25 - 4.14 - 4.33 - 4.31 HGB 12.2 13.4 12.7 - 12.5 - 13.1 - 13.0 HCT 37.6 39.8 38.9 - 37.8 - 40.0 - 39.4 MCV 92.8 88.6 91.5 - 91.3 - 92.4 - 91.4 MCHC 32.4 33.7 32.6 - 33.1 - 32.8 - 33.1 PLTCOUNT 185 224 213 - - - - - - NEUTPCT - - - - 55.7 - 60.3 - 65.4 LYMPHPCT 41.0 36.0 34.9 - - - - - - EOSINPCT 2.3 0.7 2.0 - - - - - - BASOPHILPCT 0.5 0.3 0.2 - - - - - - NEUTABS - - - - 2,451 - 2,593 - 2,420 - = values in this interval not displayed. ESR 11; CRP 0.26 UA WNL; Recent Labs Component Name 05/02/21 0733 03/03/21 1134 02/21/21 0720 SODIUM 140 138 139 POTASSIUM 4.4 4.0 4.1 CHLORIDE 106 100 103 CO2 23 24 28 BUN 17 15 19 CREATININE 0.87 0.77 0.79 GLUCOSE 93 79 82 CALCIUM 9.3 9.8 9.6 ALT 35* 27 51* ALKPHOS 98 98 108 AST 28 21 37* TBIL 0.5 0.4 0.5 TPROT 6.9 7.7 7.2 EGFR 73 86 83 EGFRAFR 85 99 96 ALBUMIN 4.4 4.7 4.3 CXR/Quant Gold negative last May (Subj) Patient remains on 50 mg Enbrel SQ/week, 20 mg MTX/week. 1 mg FA/d, 1 g Nabumetone bid+ other meds. Minimal AM stiffness. Exercising more recently. Has received both Moderna vaccines. Bilateral lateral hip pain in bursal area. Some bilateral foot pain. No skin rashes, mucosal ulcers, or systemic complaints. No new medical problems. FU with hand surgery for lesions. Rest of ROS negative. Past/Social/Family History reviewed. Colonoscopy fine. (Obj) BP 104/72 Pulse 66 Resp 16 Ht 5' 8 (1.727 m) Wt 174 lb (78.9 kg) SpO2 98% BMI 26.46 kg/m2 (Skin) No rashes or eruptions (HEENT) No mucosl ulcers. Moist membranes. No parotid fullness (Neck/Back) No adenopathy/thyromegaly/tenderness (General) Unremarkable (Extrem) HNs DIPs/BNs PIps/FCI prominence; Dupuytren's palm left hand;1-3rd MCPs SfT0; Tenderness bilateral ischial area. No direct trochanteric tenderness. Hips S0TO; with no pain on Int/Ext rotation. 2-5th MTPs S1T1; MS= bilat (Assess) Clinically stable; Monitor MTPs (Plan) Continue present meds with CXR/TB screening now. Continue labs q 8 weeks. RTO in 6 months. Perez Cervantes MD, FACP, FAAP, MACR Business Liaison Officer and Pediatric Rheumatology Professor of Internal Medicine,Pediatrics, and Molecular Immunology [facility] documented in this encounter Plan of Treatment Upcoming Encounters Date Type Department Care Team (Late st Contact Info) Description 03/27/2025 1:00 PM CDT Office Visit [facility] - Rheumatology [address] [facility], [place] [address] Perez Cervantes MD [facility] [facility] 2L [place] [address] Scheduled Orders Name Type Priority Associated Diagnoses Orde r Schedule QUANT[facility]ERON TB-GOLD Lab Routine Encounter for therapeutic drug monitoring Ordered: 06/09/2021 documented as of this encounter Procedures Procedure Name Priority Date/Time Associated Diagnosis Comments SARS-COV-2 (COVID-19) ANTIBODY IGG Routine 06/20/2021 7:32 AM CDT Encounter for therapeutic drug monitoring documented in this encounter Results * (ABNORMAL) SARS-COV-2 (COVID-19) ANTIBODY IGG (06/20/2021 [...] providers and patients using the following websites: https://www.[employer]/home/Covid-19/HCP/antibody/ fact-sheet8 ?? https://www.[employer]/home/Covid-19/Patients/ antibody/fact-sheet8 ?? Healthcare Providers: For additional information please refer to: http://education.VenueAgent/faq/TFB563 (This link is being provided for informational/ educational purposes only.) ?? This test has been authorized by the FDA under an Emergency Use Authorization (EUA) for use by authorized laboratories. The FDA authorized labeling is available on the [employer] website: www.Neutral Space/Covid19. Test Performed at: [facility] [id number] [place] [address] ??[phone] ASPEN HOLLINGSWORTH DO,MPH Blood BLOOD SPECIMEN / Unknown 06/20/2021 7:32 AM CDT 06/20/2021 7:34 AM CDT Perez Cervantes MD LAB - CHEMISTRY GERA DAVID [facility] Organization Address City/State/ZIP Co de Phone Number [facility] [phone] [place] [address] * XR CHEST 2VW (06/09/2021 3:51 PM CDT) Anatomical Region Laterality Modality Chest Radiographic Corin ging 06/09/2021 3:50 PM CDT Impressions 06/10/2021 12:41 PM CDT FINDINGS/IMPRESSION: There is no focal consolidation, pleural effusion, or pneumothorax. The cardiomediastinal silhouette is normal. The visible bony thorax is intact. Dictated by Maile Luque MD (enrollment services vice president). Dr. ANA LUISA Osorio M.D. have personally reviewed and interpreted this examination/study. This report was electronically signed by ANA LUISA KAUFMAN M.D. ??on 06/10/2021 12:41 PM . Narrative 06/10/2021 12:41 PM CDT EXAMINATION: XR CHEST 2VW HISTORY: Z51.81: Encounter for therapeutic drug monitoring COMPARISON: Chest x-ray dated 06/04/2020. Procedure Note Ana Luisa Kaufman MD - 06/10/2021 EXAMINATION: XR CHEST 2VW HISTORY: Z51.81: Encounter for therapeutic drug monitoring COMPARISON: Chest x-ray dated 06/04/2020. FINDINGS/IMPRESSION: There is no focal consolidation, pleural effusion, or pneumothorax. The cardiomediastinal silhouette is normal. The visible bony thorax isintact. Dictated by Maile Luque MD (enrollment services vice president). Dr. ANA LUISA Osorio M.D. have personally reviewed and interpreted this examination/study. This report was electronically signed by ANA LUISA KAUFMAN M.D. on 06/10/2021 12:41 PM . Perez Cervantes MD DIAGNOSTIC IMAGING O RDERABLES documented in this encounter Visit Diagnoses Diagnosis Encounter for therapeutic drug monitoring- Primary Encounter for therapeutic drug monitoring documented in this encounter Care Teams Cell Maker Relationship Specialty Start Date End Date Jaspreet Pearl MD PCP - General 08/08/18 03/26/24 documented as of this encounter
--- OUTSIDE RECORDS SUMMARY | 2024-11-13 17:07 | XMS_ITS | Encounter Summary ---
Author Organization [facility] Address [address] [place] [address] Care Team Providers Care Instrument/Control Technician Name Role Phone Jaspreet Pearl MD Primary Care Provider + Dayanara Plaza MD Primary Care Provider [phone] Encounter Details Date Type Department Care Team (Late Contact Info) Description 04/22/2020 Lab Requisition [facility] [address] [facility] [place] [address] Shirley Everett MD [address] [place] [address] 3 [place] [address] Social History Tobacco Use Types Packs/Day Years [...] Office Visit [facility] - Rheumatology [address] [place] [address] [place] [phone] Perez Cervantes MD [address] [place] [address] 2L [place] [address] documented as of this encounter Procedures Procedure Name Priority Date/Time Associated Diagnosis Comments DERMATOPATHOLOGY Routine 04/19/2020 12:0 0 AM CDT documented in this encounter Results * DERMATOPATHOLOGY (04/19/2020 12:00 AM CDT) Case Report Dermatopathology Report ? Case: [id number] ? Authorizing Provider: ??Shirley Everett MD ? Collected: ? 04/19/2020 12:00 AM ? Ordering Location: ? [facility] ?Received: ?04/22/2020 07:07 AM ? Pathologist: ? Elvia Donaldson MD ? Specimens: ?? A) - Skin, right collarbone ? B) - Skin, central chest ? 0 12:54 PM CDT DERMATOPATHOLOGY LABORATORY Final Diagnosis Specimen A. SKIN, right collarbone: BASAL CELL CARCINOMA, SUPERFICIAL MULTIFOCAL (C44.519) Specimen B. SKIN, central chest: BASAL CELL CARCINOMA, SUPERFICIAL MULTIFOCAL (C44.519) (see microscopic description) 0 12:54 PM T DERMATOPATHOLOGY LABORATORY Clinical History A-B: R/O BCC, irritated, non-healing. 0 12:54 PM CDT DERMATOPATHOLOGY LABORATORY Gross Description Specimen A: Received is one formalin filled container labeled with the patient's name and designated right collarbone. The specimen consists of a shave measuring 3s1e8dp. Jar 0. Specimen B: Received is one formalin filled container labeled with the patient's name and designated central chest. The specimen consists of a shave measuring 5v5p5xh. Jar 0. 0 12:54 PM CDT DERMATOPATHOLOGY LABORATORY Microscopic Description Specimen A. SKIN, right collarbone: Attached to the undersurface of the epidermis, there are small aggregates of basaloid cells with a high nuclear to cytoplasmic ratio and peripheral palisading. Specimen B. SKIN, central chest: Attached to the undersurface of the epidermis, there are small aggregates of basaloid cells with a high nuclear to cytoplasmic ratio and peripheral palisading. Additional deeper sections were obtained and reviewed. 0 12:54 PM CDT DERMATOPATHOLOGY LABORATORY Disclaimer An external and internal positive and negative controls are appropriate for the histochemical, immunohistochemical and immunofluorescence stain(s) in this case (if any), except where stated explicitly. The performance characteristics of the stain(s) cited in this report were developed and its performance characteristic determined by the Dermatopathology Laboratory at [facility], directed by Dr. Robbin Dunbar. These tests need not be, and therefore are not, approved by the [place] Food and Drug Administration. The tests are used for clinical purposes. Billing Codes Specimen Charges Stain Charges 01172 94956 1 1 0 12:54 PM CDT DERMATOPATHOLOGY LABORATORY Embedded Images 0 12:54 PM CDT DERMATOPATHOLOGY LABORATORY Pathology/Cytology TISSUE SPECIMEN FROM SKIN / Unknown 04/19/2020 04/22/2020 7:07 AM CDT Miscellaneous samples (specimen) TISSUE SPECIMEN FROM SKIN / Unknown 04/19/2020 04/22/2020 7:07 AM CDT Shirley Everett MD LAB - PATHOLOGY/CYT OLOGY ORDERABLES DERMATOPATHOLOGY LABORATORY [facility] - Department of Dermatology [facility]al [facility] Aide [place]/[address] [phone] documented in this encounter Visit Diagnoses Not on filedocumented in this encounter Care Teams Instrument/Control Technician Relationship Specialty Start Date End Date Jaspreet Pearl MD PCP - General 08/08/18 03/26/24 [place] [id number] [phone] PCP - General Family Medicine 03/27/24 documented as of this encounter
--- OUTSIDE RECORDS SUMMARY | 2024-11-13 17:07 | XMS_ITS | Encounter Summary ---
Author Organization [facility] Address [address] [facility] [place] [address] Care Team Providers Care Vacuum Conditioner Operator Name Role Phone Jaspreet Pearl MD Primary Care Provider + Encounter Details Date Type Department Care Team (Late st Contact Info) Description 11/24/2021 Orders Only [facility] [address] [place] [phone] Perez Cervantes MD [address] [place] [address] 2[place] [phone] Social History Tobacco Use Types Packs/Day Years [...] Visit [facility] - Rhe[facility]ology [address] [place] [phone] Perez Cervantes MD [address] [place] [address] 2L [place] [phone] documented as of this encounter Visit Diagnoses Not on filedocumented in this encounter Care Teams Vacuum Conditioner Operator Relationship Specialty Start Date End Date Jaspreet Pearl MD PCP - General 08/08/18 03/26/24 documented as of this encounter
--- OUTSIDE RECORDS SUMMARY | 2024-11-13 17:07 | XMS_ITS | Encounter Summary ---
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 documented as of this encounter Plan of Treatment Upcoming Encounters Date Type Department Care Team (Late st Contact Info) Description 03/27/2025 1:00 PM CDT Office Visit [facility] - Rheumatology [address] [place] [address], [place] [address] Perez Cervantes MD [address] [place] [address] [place] [address] documented as of this encounter Visit Diagnoses Not on filedocumented in this encounter Care Teams Resident Director Relationship Specialty Start Date End Date Jaspreet Pearl MD PCP - General 08/08/18 03/26/24 documented as of this encounter
--- OUTSIDE RECORDS SUMMARY | 2024-11-13 17:07 | XMS_ITS | Encounter Summary ---
Author Organization [facility] Health Address [address] [facility] [place] [address] Care Team Providers Care Mortician Supplies Sales Representative Name Role Phone Jaspreet Pearl MD Primary Care Provider + Reason for Visit * Reason Comments Follow-up F/U PER Dr CERVANTES Encounter Details Date Type Department Care Team (Late st Contact Info) Description 09/01/2022 3:40 PM CDT Office Visit [facility] [address] [place] [address], [place] [address] Perez Cervantes MD [address] [place] [address] [place] [address] Encounter for therapeutic drug monitoring (Primary Dx); Need for influenza vaccination; Polyarthritis Social History Tobacco Use Types Packs/Day [...] Sign Reading Time Taken Comments Blood Pressure 120/78 09/01/2022 3:25 PM CDT Pulse - - Temperature 36.7 ??C (98.1 ??F) 09/01/2022 3:25 PM CD T Respiratory Rate - - Oxygen Saturation - - Inhaled Oxygen Concentration - - Weight 82.1 kg (181 lb) 09/01/2022 3:25 PM CDT Height 172.7 cm (5' 8 ) 09/01/2022 3:25 PM CDT Body Mass Index 27.52 09/01/2022 3:25 PM CDT documented in this encounter Progress Notes * Perez Cervantes MD - 09/01/2022 3:44 PM CDT (Prob #1) Polyarthritis (All Abs negative) (Prob #2) OA Hands (Labs) Recent Labs Component Name 07/27/22 0713 05/15/22 1029 03/20/22 0720 03/18/18 0735 01/07/18 0744 10/22/17 0734 08/13/17 0734 WBC 4.8 4.2 3.9 - 4.4 4.3 3.7* RBC 4.03 4.17 4.27 - 4.14 4.33 4.31 HGB 12.4 13.0 12.9 - 12.5 13.1 13.0 HCT 37.3 39.9 39.6 - 37.8 40.0 39.4 MCV 92.6 95.7 92.7 - 91.3 92.4 91.4 MCHC 33.2 32.6 32.6 - 33.1 32.8 33.1 PLTCOUNT 191 192 197 - - - - NEUTPCT - - - - 55.7 60.3 65.4 LYMPHPCT 26.2 29.4 33.9 - - - - EOSINPCT 2.5 1.0 1.6 - - - - BASOPHILPCT 0.4 0.5 0.3 - - - - NEUTABS - - - - 2,451 2,593 2,420 - = values in this interval not displayed. ESR 11; CRP 0.47 UA Few WBCs Recent Labs Component Name 07/27/22 0713 05/28/22 0817 05/15/22 1029 03/20/22 0720 01/22/22 0746 SODIUM 140 141 140 140 139 POTASSIUM 4.3 4.0 4.4 4.1 4.1 CHLORIDE 104 104 105 104 102 CO2 30 27 27 29 28 BUN 18 15 17 23 19 CREATININE 0.81 0.74 0.78 0.80 0.81 GLUCOSE 87 84 86 81 86 CALCIUM 9.3 9.0 9.8 9.3 9.9 ALT 29 39* 83* 26 25 ALKPHOS 104 110 107 96 87 AST 22 26 81* 24 25 TBIL 0.3 0.5 0.6 0.6 0.6 TPROT 7.2 7.0 7.2 7.1 7.8 EGFR - - 83 81 80 EGFRAFR - - 96 94 93 ALBUMIN 4.2 4.2 4.5 4.3 4.7 (Subj) Patient remains on 50 mg Enbrel SQ/week, 20 mg MTX/week, 1 mg FA/d, 1 g Nabumetone bid+ other meds. Needs TB screening.Has not been seen for 10 months. Went to [place] and was sick. 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 No mucosal ulcers, or systemic problems. Saw PMD for Laryngitis.Minimal AM stiffness. Plantar faciitis in right heel No other joint complaints. Rest of ROS negative. Past/Social/Family History. (Obj) BP 120/78 (BP SITE: RIGHT ARM, BP POSITION: SITTING, BP CUFF SIZE: 11L) Temp 98.1 ??F (36.7??C) (Oral) Ht 5' 8 (1.727 m) Wt 181 lb (82.1 kg) (Skin) No rashes or eruptions (HEENT) No mucosal ulcers. Moist membranes (Neck/Back) No adenopathy/thyromegaly/tenderness (General) Unremarkable (Extrem) HNs DIPs/BNs PIps/CORRECTION; 1-3rd MCps SfT0' 2-4th MTPs SfT0; No donta synovitis. MS= bilat (Assess) RA in medical remission (Plan) Continue same meds with labs q 6 months. CXR today. TB screening with next draw. RTO in 6 months. Discussed with patient. Perez Cervantes MD, FACP, FAAP, MACR Relocation Specialist and Pediatric Rheumatology Professor of Internal Medicine,Pediatrics, and Molecular Immunology [facility] documented in this encounter Plan of Treatment Upcoming Encounters Date Type Department Care Team (Late st Contact Info) Description 03/27/2025 1:00 PM CDT Office Visit [facility] - Rheumatology [address] [facility], [place] [address] Perez Cervantes MD [facility] 2L [place] [id number] documented as of this encounter Procedures Procedure Name Priority Date/Time Associated Diagnosis Comments URINALYSIS W/MICROSCOPIC REFLEX TO CULTURE Routine 09/25/2022 8:39 AM ARTIFICIAL FLOWERS SUPERVISOR Encounter for therapeutic drug monitoring Polyarthritis C-REACTIVE PROTEIN Routine 09/25/2022 8: 39 AM ARTIFICIAL FLOWERS SUPERVISOR Encounter for therapeutic drug monitoring Polyarthritis ERYTHROCYTE SEDIMENTATION RATE Routine 09/25/2022 8:39 AM ARTIFICIAL FLOWERS SUPERVISOR Encounter for therapeutic drug monitoring Polyarthritis CBC W AUTO DIFFERENTIAL Routine 09/25/2022 8:39 AM ARTIFICIAL FLOWERS SUPERVISOR Encounter for therapeutic drug monitoring Polyarthritis COMPREHENSIVE METABOLIC PANEL Routine 09/25/2022 8:39 AM ARTIFICIAL FLOWERS SUPERVISOR Encounter for therapeutic drug monitoring Polyarthritis documented in this encounter Results * (ABNORMAL) URINALYSIS W/MICROSCOPIC REFLEX TO CULTURE (09/25/2022 8:39 AM ARTIFICIAL FLOWERS SUPERVISOR) Color UA YELLOW YELLOW [facility] Appearance CLEAR CLEAR [facility] Specific [place] UA 1.006 1.001 - 1.035 [facility] pH UA 6.5 [...] SEEN /LPF [facility] Comment: Test Performed at: [facility] ??[phone] NAVID SCOTT MD Urine URINE SPECIMEN OBTAINED BY CLEAN CATCH PROCEDURE / Unknown 09/25/2022 8:39 AM ARTIFICIAL FLOWERS SUPERVISOR 09/25/2022 8:40 AM ARTIFICIAL FLOWERS SUPERVISOR Perez Cervantes MD LAB - URINALYSIS ORD ERABLES Performing Organization Address [facility] Co de Phone Number [facility] [address] [place] [address] * ERYTHROCYTE SEDIMENTATION RATE (09/25/2022 8:39 AM ARTIFICIAL FLOWERS SUPERVISOR) Erythrocyte Sedimentation Rate Westergren 28 < OR = 30 mm/h [facility] Comment: Test Performed at: [facility] [address] [place], [place] ??[phone] ASPEN HOLLINGSWORTH DO,MPH Blood BLOOD SPECIMEN / Unknown 09/25/2022 8:39 AM ARTIFICIAL FLOWERS SUPERVISOR 09/25/2022 8:40 AM ARTIFICIAL FLOWERS SUPERVISOR Perez Cervantes MD LAB - HEMATOLOGY ORD ERABLES Performing Organization Address [facility] de Phone Number [facility] [address] [place] [phone] * C-REACTIVE PROTEIN (09/25/2022 8:39 AM ARTIFICIAL FLOWERS SUPERVISOR) C-Reactive Protein 5.1 <8.0 mg/L [facility] Comment: Test Performed at: [facility] [address] [place], [place] ??[phone] ASPEN HOLLINGSWORTH DO,MPH Blood BLOOD SPECIMEN / Unknown 09/25/2022 8:39 AM ARTIFICIAL FLOWERS SUPERVISOR 09/25/2022 8:40 AM ARTIFICIAL FLOWERS SUPERVISOR Perez Cervantes MD LAB - CHEMISTRY ORDE JOANN Performing Organization Address [facility] de Phone Number [facility] [address] [place] [address] * (ABNORMAL) COMPREHENSIVE METABOLIC PANEL (09/25/2022 8:39 AM ARTIFICIAL FLOWERS SUPERVISOR) Glucose 91 65 - 99 mg/dL [facility] Comment: ? Fasting reference interval BUN 13 7 - 25 mg/dL [facility] Creatinine 0.77 0.50 - 1.03 mg/dL [facility] eGFR by Cystatin C 89 > OR = 60 mL/min/1. 73m2 [facility] Comment: The eGFR is based on the CKD-EPI 2020 equation. To calculate the new eGFR from a previous Creatinine or Cystatin C result, go to https://www.kidney.org/professionals/ kdoqi/gfr%5Fcalculator BUN/Creatinine Ratio NOT APPLICABLE 6 - (calc) [facility] Sodium 138 135 - 146 mmol/L [facility] Potassium 4.2 3.5 - 5.3 mmol/L [facility] Chloride 103 98 - 110 mmol/L [facility] CO2 29 20 - 32 mmol/L [facility] Calcium 9.7 8.6 - 10.4 mg/dL [facility] Protein Total 7.2 6.1 - 8.1 g/dL [facility] Albumin 4.4 3.6 - 5.1 g/dL [facility] Globulin Total 2.8 1.9 - 3.7 g/dL (calc) [facility] Albumin/Globuli n Ratio 1.6 1.0 - 2.5 (calc) [facility] Bilirubin Total 0.6 0.2 - 1.2 mg/dL [facility] Alkaline Phosphatase 107 37 - 153 U/L [facility] AST 36(H) 10 - 35 U/L [facility] ALT 42(H) 6 - 29 U/L [facility] Comment: Test Performed at: [facility] ??[phone] ASPEN HOLLINGSWORTH DO,MPH Blood BLOOD SPECIMEN / Unknown 09/25/2022 8:39 AM ARTIFICIAL FLOWERS SUPERVISOR 09/25/2022 8:40 AM ARTIFICIAL FLOWERS SUPERVISOR Perez Cervantes MD LAB - CHEMISTRY GERA DAVID [facility] Organization Address City/State/ZIP Co de Phone Number [facility] [address] [place] [address] * (ABNORMAL) CBC WITH DIFFERENTIAL (09/25/2022 8:39 AM ARTIFICIAL FLOWERS SUPERVISOR) White Blood Cell Count 4.1 3.8 - 10.8 Thousand/ uL [facility] RBC 4.27 3.80 - 5.10 Million/u L [facility] Hemoglobin 12.8 11.7 - 15.5 g/dL [facility] Hematocrit 39.7 35.0 - 45.0 % [facility] MCV 93.0 80.0 - 100.0 fL [facility] MCH 30.0 27.0 - 33.0 pg [facility] MCHC 32.2 32.0 - 36.0 g/dL [facility] RDW 14.2 11.0 - 15.0 % [facility] Platelet Count 259 140 - 400 Thousand/ uL [facility] MPV 10.9 7.5 - 12.5 fL [facility] Neutrophil Absolute 1283(L) 1500 - 7800 cells/uL [facility] Absolute Bands [facility] Metamyelocytes Absolute [facility] Myelocytes Absolute [facility] Absolute Prolymphocytes [facility] Lymphocytes Absolute 1935 850 - 3900 cells/uL [facility] Absolute Monocytes 800 200 - 950 cells/uL [facility] Eosinophils Absolute 62 15 - 500 cells/uL [facility] Basophils Absolute 21 0 - 200 cells/uL [facility] Absolute Blasts [facility] nRBC Absolute [facility] Granulocytes % 31.3 % [facility] Band Neutrophil [facility] Metamyelocytes [facility] Myelocytes [facility] Promyelocytes [facility] Lymphocytes % 47.2 % [facility] Lymphocyte Reactive [facility] Monocytes % 19.5 % [facility] Eosinophils % 1.5 % [facility] Basophils % 0.5 % [facility] Comment: Test Performed at: [facility] [address] [place], [place] ??[phone] ASPEN HOLLINGSWORTH DO,MPH Blasts [facility] nRBC [facility] Comments [facility] Comment: Test Performed at: [facility] [address] [place], [place] ??[phone] ASPEN HOLLINGSWORTH DO,MPH Blood BLOOD SPECIMEN / Unknown 09/25/2022 8:39 AM ARTIFICIAL FLOWERS SUPERVISOR 09/25/2022 8:40 AM ARTIFICIAL FLOWERS SUPERVISOR Perez Cervantes MD LAB - HEMATOLOGY ORD ERABLES Performing Organization Address City/State/[facility] Co de Phone Number [facility] [address] [place] [address] * XR CHEST 2VW (09/01/2022 4:36 PM CDT) Anatomical Region Laterality Modality Chest Radiographic Corin ging 09/02/2022 7:40 AM CDT Narrative 09/02/2022 9:38 AM CDT PROCEDURE: ??XR CHEST 2VW, DATE/TIME OF EXAM: ??09/01/2022 4:36 PM, LOCATION [facility] INDICATION: Z51.81: Encounter for therapeutic drug monitoring COMPARISON: Chest x-ray 06/09/2021 FINDINGS/IMPRESSION: There is no focal consolidation, pleural effusion, or pneumothorax. The cardiomediastinal silhouette is normal. The visible bony thorax is intact. Report dictated by Wm Tran MD, MD (anesthesiology resident). Dameon Osorio have personally reviewed and interpreted this examination/study. > Interpreting Provider: Dameon Johnson on 09/02/2022 9:38 AM Procedure Note Dameon Johnson MD - 09/02/2022 PROCEDURE: XR CHEST 2VW, DATE/TIME OF EXAM: 09/01/2022 4:36 PM, LOCATION [facility] INDICATION: Z51.81: Encounter for therapeutic drug monitoring COMPARISON: Chest x-ray 06/09/2021 FINDINGS/IMPRESSION: There is no focal consolidation, pleural effusion, or pneumothorax. The cardiomediastinal silhouette is normal. The visible bony thorax isintact. Report dictated by Wm Tran MD, (anesthesiology resident). Dameon Osorio have personally reviewed and interpreted this examination/study. > Interpreting Provider: Dameon Johnson on 09/02/2022 9:38 AM Perez Cervantes MD DIAGNOSTIC IMAGING [facility] documented in this encounter Visit Diagnoses Diagnosis Encounter for therapeutic drug monitoring- Primary Need for influenza vaccination Need for prophylactic vaccination and inoculation against influenza Polyarthritis Unspecified polyarthropathy or polyarthritis, site unspecified Encounter for therapeutic drug monitoring documented in this encounter Care Teams Mortician Supplies Sales Representative Relationship Specialty Start Date End Date Jaspreet Pearl MD PCP - General 08/08/18 03/26/24 documented as of this encounter
--- OUTSIDE RECORDS SUMMARY | 2024-11-13 17:07 | XMS_ITS | Encounter Summary ---
Author Organization [facility] Address [address] [facility] [place] [address] Care Team Providers Care Modeling Instructor Name Role Phone Jaspreet Pearl MD Primary Care Provider + Reason for Visit * Reason Comments Follow-up Polyarhtritis Encounter Details Date Type Department Care Team (Latest Contact Info) Description 12/10/2020 1:00 PM SALESPERSON [employer] Office Visit [facility] [address] [place] [address], [place] [address] Perez Cervantes MD [address] [place] [address] [place] [address] Polyarthritis (Primary Dx) Social History [...] COVID-19? No / Unsure 12/10/2020 1:40 PM SALESPERSON [employer] documented as of this encounter Last Filed Vital Signs Vital Sign Reading Time Taken Comments Blood Pressure 102/72 12/10/2020 1:10 PM SALESPERSON [employer] Pulse 72 12/10/2020 1:10 PM SALESPERSON [employer] Temperature 36.4 ??C (97.5 ??F) 12/10/2020 1:10 PM CS T Respiratory Rate - - Oxygen Saturation - - Inhaled Oxygen Concentration - - Weight 80.7 kg (178 lb) 12/10/2020 1:10 PM SALESPERSON [employer] Height 172.7 cm (5' 8 ) 12/10/2020 1:10 PM SALESPERSON [employer] Body Mass Index 27.06 12/10/2020 1:10 PM SALESPERSON [employer] documented in this encounter Progress Notes * Perez Cervantes MD - 12/10/2020 12:50 PM CST (Prob #1) Polyarthritis (Abs All Negative) (Prob #2) OA Hands (Labs) Recent Labs Component Name 10/18/2071508/13/2017 05/27/20 0842 01/07/18 0744 01/07/18 0744 10/22/17 0734 08/13/17 0734 WBC 3.6* 5.3 4.6 - 4.4 4.3 3.7* RBC 4.06 4.20 4.18 - 4.14 4.33 4.31 HGB 12.3 12.9 12.6 - 12.5 13.1 13.0 HCT 37.7 38.9 38.2 - 37.8 40.0 39.4 MCV 92.9 92.6 91.4 - 91.3 92.4 91.4 MCHC 32.6 33.2 33.0 - 33.1 32.8 33.1 PLTCOUNT 199 207 216 - - - - NEUTPCT - - - - 55.7 60.3 65.4 LYMPHPCT 41.9 29.2 37.0 - - - - EOSINPCT 2.8 3.0 2.0 - - - - BASOPHILPCT 0.6 0.4 0.7 - - - - NEUTABS - - - - 2,451 2,593 2,420 - = values in this interval not displayed. ESR 11; CRP 0.25 UA WNL; CXR/Quant Gold negative in May Recent Labs Component Name 10/18/2071508/13/2017 05/27/20 0842 SODIUM 141 139 140 POTASSIUM 4.2 4.1 4.0 CHLORIDE 106 103 105 CO2 25 29 24 BUN 17 13 16 CREATININE 0.66 0.76 0.68 GLUCOSE 80 85 85 CALCIUM 9.2 9.2 9.7 ALT 26 24 24 ALKPHOS 84 96 105 AST 21 22 19 TBIL 0.5 0.4 0.4 TPROT 6.6 7.0 7.1 EGFR 98 87 97 EGFRAFR 114 101 113 ALBUMIN 4.2 4.2 4.4 (Subj) Patient remains on 50 mg Enbrel SQ /week, 20 mg MTX/week, 1 mg FA/d, and 1 g Nabumetone bid+other meds Had first Moderna vaccine injection. Some pain in left foot MTP. Stable AM stiffness. Occasional left elbow lesion resolving. No mucosal ulcers, or systemic complaints. URIs with whitish tonsil on left.X 4. Strep cultures negative, but treated with antibiotics. . 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 Past/Social/Family History reviewed. (Obj) BP 102/72 (BP SITE: LEFT ARM, BP POSITION: SITTING, BP CUFF SIZE: 11) Pulse 72 Temp 97.5 ??F (36.4 ??C) (Oral) Ht 5' 8 (1.727 m) Wt 178 lb (80.7 kg) BMI 27.06 kg/m2 (Skin) Mild irritation left elbow. (HEENT) No mucosal ulcers. No tonsillar lesions. Moist membranes. No parotid fullness; (Neck/Back) No adenopathy/thyromegaly/tenderness (General) Unremarkable (Extrem) HNs DIPs/BNs 5th PIPs/MCFP prominence; 1-3rd MCPs SfT0; 1-4th MTPs SfT1; No donta synovitis. MS= bilat (Assess) Polyarthritis clinically stable. Monitor MTPs (Plan) Continue same meds with labs q 8 weeks and yearly TB screening. Xrays today of feet. Advise when results return. RTO in 6 months. Discussed with patient. Perez Cervantes MD, FACP, FAAP, MACR Reel Tender and Pediatric Rheumatology Professor of Internal Medicine,Pediatrics, and Molecular Immunology [facility] SPERSON [employer] documented in this encounter Plan of Treatment Upcoming Encounters Date Type Department Care Team (Late st Contact Info) Description 03/27/2025 1:00 PM CDT Office Visit [facility] - Rheumatology [address] [facility], [place] [id number] Perez Cervantes MD [facility] 2L [place] [address] documented as of this encounter Results * XR FOOT LEFT 2VW (12/10/2020 1:59 PM SALESPERSON [employer]) Anatomical Region Laterality Modality Ankle / Foot Radiographic Corin ging 12/10/2020 2:43 PM SALESPERSON [employer] Impressions 12/10/2020 3:00 PM SALESPERSON [employer] IMPRESSION: No acute fracture, dislocation, or significant arthritis identified. Dictated by Julián De Leon MD (vice president of instruction). I, Dr. DINH TOLEDO MD have personally reviewed and interpreted this examination/study. This report was electronically signed by DINH TOLEDO MD ??on 12/10/2020 3:00 PM . Narrative 12/10/2020 3:00 PM SALESPERSON [employer] EXAMINATION: XR FOOT RIGHT 2VW, XR FOOT LEFT 2VW HISTORY: M13.0: Polyarthritis COMPARISON: 10/31/2020 right and left foot radiographs FINDINGS: Right foot: The osseous structures are intact and well aligned without acute fracture or dislocation. The joint spaces are preserved. Bone density and texture are normal. No soft tissue swelling is present. Left foot: The osseous structures are intact and well aligned without acute fracture or dislocation. The joint spaces are preserved. Bone density and texture are normal. No soft tissue swelling is present. Procedure Note Dinh Toledo MD - 12/10/2020 EXAMINATION: XR FOOT RIGHT 2VW, XR FOOT LEFT 2VW HISTORY: M13.0: Polyarthritis COMPARISON: 10/31/2020 right and left foot radiographs FINDINGS: Right foot: The osseous structures are intact and well aligned without acutefracture or dislocation. The joint spaces are preserved. Bone density and texture are normal. No soft tissue swelling is present. Left foot: The osseous structures are intact and well aligned without acutefracture or dislocation. The joint spaces are preserved. Bone density and texture are normal. No soft tissue swelling is present. IMPRESSION: No acute fracture, dislocation, or significant arthritis identified. Dictated by Julián De Leon MD (vice president of instruction). Dr. DINH Osorio MD have personally reviewed and interpreted this examination/study. This report was electronically signed by DINH TOLEDO MD on12/10/2020 3:00 PM . Perez Cervantes MD DIAGNOSTIC IMAGING O RDERABLES * XR FOOT RIGHT 2VW (12/10/2020 1:59 PM SALESPERSON [employer]) Anatomical Region Laterality Modality Ankle / Foot Radiographic Corin ging 12/10/2020 2:43 PM SALESPERSON [employer] Impressions 12/10/2020 3:00 PM SALESPERSON [employer] IMPRESSION: No acute fracture, dislocation, or significant arthritis identified. Dictated by Julián De Leon MD (vice president of instruction). Dr. DINH Osorio MD have personally reviewed and interpreted this examination/study. This report was electronically signed by DINH TOLEDO MD ??on 12/10/2020 3:00 PM . Narrative 12/10/2020 3:00 PM SALESPERSON [employer] EXAMINATION: XR FOOT RIGHT 2VW, XR FOOT LEFT 2VW HISTORY: M13.0: Polyarthritis COMPARISON: 10/31/2020 right and left foot radiographs FINDINGS: Right foot: The osseous structures are intact and well aligned without acute fracture or dislocation. The joint spaces are preserved. Bone density and texture are normal. No soft tissue swelling is present. Left foot: The osseous structures are intact and well aligned without acute fracture or dislocation. The joint spaces are preserved. Bone density and texture are normal. No soft tissue swelling is present. Procedure Note Dinh Toledo MD - 12/10/2020 EXAMINATION: XR FOOT RIGHT 2VW, XR FOOT LEFT 2VW HISTORY: M13.0: Polyarthritis COMPARISON: 10/31/2020 right and left foot radiographs FINDINGS: Right foot: The osseous structures are intact and well aligned without acutefracture or dislocation. The joint spaces are preserved. Bone density and texture are normal. No soft tissue swelling is present. Left foot: The osseous structures are intact and well aligned without acutefracture or dislocation. The joint spaces are preserved. Bone density and texture are normal. No soft tissue swelling is present. IMPRESSION: No acute fracture, dislocation, or significant arthritis identified. Dictated by Julián De Leon MD (vice president of instruction). I, Dr. DINH TOLEDO MD have personally reviewed and interpreted this examination/study. This report was electronically signed by DINH TOLEDO MD on12/10/2020 3:00 PM . Perez Cervantes MD DIAGNOSTIC IMAGING O [facility] documented in this encounter Visit Diagnoses Diagnosis Polyarthritis- Primary Unspecified polyarthropathy or polyarthritis, site unspecified Polyarthritis Unspecified polyarthropathy or polyarthritis, site unspecified documented in this encounter Care Teams Modeling Instructor Relationship Specialty Start Date End Date Jaspreet Pearl MD PCP - General 08/08/18 03/26/24 documented as of this encounter
--- OUTSIDE RECORDS SUMMARY | 2024-11-13 17:07 | XMS_ITS | Encounter Summary ---
Author Organization [facility] Address [address] [facility] [place] [address] Care Team Providers Care Receptionist Secretary Name Role Phone Jaspreet Pearl MD Primary Care Provider + Reason for Visit * Reason Onset Date Comments Results 02/24/2021 Encounter Details Date Type Department Care Team (Late st Contact Info) Description 02/24/2021 Telephone [facility] [address] [place] [address], [place] [address] Perez Cervantes MD [address] [place] [address] [place] [address] Results Social History Tobacco Use Types Packs/Day Years [...] encounter Miscellaneous Notes * Telephone Encounter - Peerz Cervantes MD - 02/24/2021 11:04 AM CDT Mild elvation in LFTs. Tore a meniscus and has been taking dises of acetaminophen. Will check labs in one week. Discussed with patient. Perez Cervantes MD, FACP, FAAP, MACR Retail Service Specialist and Pediatric Rheumatology Professor of Internal Medicine,Pediatrics, and Molecular Immunology [facility] S documented in this encounter Plan of Treatment Upcoming Encounters Date Type Department Care Team (Late st Contact Info) Description 03/27/2025 1:00 PM CDT Office Visit [facility] - Rheumatology [address] [place] [address], [place] [phone] Perez Cervantes MD [facility] [place] [address] documented as of this encounter Procedures Procedure Name Priority Date/Time Associated Diagnosis Comments COMPREHENSIVE METABOLIC PANEL Routine 03/03/2021 11:34 AM CDT Encounter for therapeutic drug monitoring documented in this encounter Results * COMPREHENSIVE METABOLIC PANEL (03/03/2021 11:34 AM CDT) Glucose 79 65 - 99 mg/dL [facility] Comment: ? Fasting reference interval BUN 15 7 - 25 mg/dL [facility] Creatinine 0.77 0.50 - 1.05 mg/dL [facility] Comment: For patients >49 years of age, the reference limit for Creatinine is approximately 13% higher for people identified as -[place]. eGFR by MDRD 86 > OR = 60 mL/min/1 .73m2 [facility] eGFR by MDRD 99 > OR = 60 mL/min/1 .73m2 [facility] BUN/Creatinine Ratio NOT APPLICABLE 6 - 22 (calc) [facility] Sodium 138 135 - 146 mmol/L [facility] Potassium 4.0 3.5 - 5.3 mmol/L [facility] Chloride 100 98 - 110 mmol/L [facility] CO2 24 20 - 32 mmol/L [facility] Calcium 9.8 8.6 - 10.4 mg/dL [facility] Protein Total 7.7 6.1 - 8.1 g/dL [facility] Albumin 4.7 3.6 - 5.1 g/dL [facility] Globulin Total 3.0 1.9 - 3.7 g/dL (calc) [facility] Albumin/Globulin Ratio 1.6 1.0 - 2.5 (calc) [facility] Bilirubin Total 0.4 0.2 - 1.2 mg/dL [facility] Alkaline Phosphatase 98 37 - 153 U/L [facility] AST 21 10 - 35 U/L [facility] ALT 27 6 - 29 U/L [facility] Comment: Test Performed at: [employer] [email or web address] [address] [place], [place] [address]NER [place] ??[id number] ASPEN HOLLINGSWORTH DO,MPH Blood BLOOD SPECIMEN / Unknown 03/03/2021 11:34 AM CDT 03/03/2021 11:35 AM CDT Perez Cervantes MD LAB - CHEMISTRY [facility] [address] [place] [address] documented in this encounter Visit Diagnoses Diagnosis Encounter for therapeutic drug monitoring- Primary documented in this encounter Care Teams Receptionist Secretary Relationship Specialty Start Date End Date Jaspreet Pearl MD PCP - General 08/08/18 03/26/24 documented as of this encounter
--- OUTSIDE RECORDS SUMMARY | 2024-11-13 17:07 | XMS_ITS | Encounter Summary ---
Author Organization [facility] Address [address] [place] [address] Care Team Providers Care Sheet Metal Worker Supervisor Name Role Phone Jaspreet Pearl MD Primary Care Provider + Encounter Details Date Type Department Care Team (Latest Contact Info) Description 06/04/2020 3:39 PM CDT - 06/04/2020 11:59 PM CDT Hospital Encounter [facility] DIAGNOSTIC RAD OP [address] [place] [address] Perez Cervantes MD [address] [facility] [address] [facility] [place] [address] Discharge Disposition: Home or Self [...] PM CDT documented as of this encounter Medications at Time of Discharge Medication Sig Dispensed Refills Start Date End Date Azelastine HCl 137 MCG/SPRAY SOLN [place] 2 sprays into the nose 2 times daily dicyclomine (BENTYL) 20 MG tablet Take 1 (one) tablet by mouth as needed Multiple Vitamin (MULTI VITAMIN PO) Take 1 tablet by mouth once daily ALPRAZolam (XANAX) 0.25 MG tablet Take 1 (one) tablet by mouth once daily as needed 01/26/2020 03/27/2024 buPROPion (WELLBUTRIN) 75 MG tablet Take 75 mg by mouth 2 times daily 1 04/11/2019 12/10/2020 citalopram (CELEXA) 10 MG tablet Take 10 mg by mouth once daily 1 05/01/2019 08/31/2023 ENBREL 50 MG/ML prefilled syringe INJECT 50 MG (1 SYRINGE) UNDER THE SKIN ONCE WEEKLY 12 syringe 3 02/03/2019 07/11/2024 Estrogens, Conjugated (PREMARIN VA) Insert into the vagina every 7 days 06/09/2021 fexofenadine (PIYUSH ALLERGY) 180 MG tablet Take 180 mg by mouth once daily 08/31/2023 folic acid (FOLVITE) 1 MG tablet TAKE 1 TABLET BY MOUTH DAILY 30 tablet 11 02/26/2020 02/24/2021 methotrexate 2.5 MG tabletIndications:Po lyarthritis TAKE 8 TABLETS EVERY 7 DAYS Reasons: Polyarthritis 96 tablet 3 01/25/2019 05/05/2021 montelukast (SINGULAIR) 10 MG tablet Take 10 mg by mouth at bedtime 08/31/2023 nabumetone (RELAFEN) 500 MG tabletIndications:Os teoarthritis Take 2 tablets by mouth 2 times daily Reasons: Joint Damage causing Pain and Loss of Function 360 tablet 3 01/25/2019 12/08/2021 omega 3 (FISH OIL) 1200 MG capsule Take 1 (one) capsule by mouth once daily 03/27/2024 documented as of this encounter Plan of Treatment Upcoming Encounters Date Type Department Care Team (Late st Contact Info) Description 03/27/2025 1:00 PM CDT Office Visit [facility] - Rheumatology [address] [place] [address], [facility] [place] [phone] Perez Cervantes MD [address] [place] [address] [place] [address] documented as of this encounter Procedures Procedure Name Priority Date/Time Associated Diagnosis Comments XR CHEST 2VW Routine 06/04/2020 3:55 PM CDT Encounter for therapeutic drug monitoring documented in this encounter Results * XR CHEST 2VW (06/04/2020 3:55 PM CDT) Anatomical Region Laterality Modality Chest Radiographic Corin ging 06/04/2020 3:57 PM CDT Impressions 06/05/2020 8:11 AM CDT FINDINGS/IMPRESSION: There is no focal consolidation, pleural effusion, or pneumothorax. The cardiomediastinal silhouette is normal. The visible bony thorax is intact. Dictated by Brodie Henry MD (radiology supervisor). Dr. STALIN Osorio have personally reviewed and [...] is intact. Dictated by Brodie Henry MD (radiology supervisor). Dr. STALIN Osorio have personally reviewed and interpreted this examination/study. This report was electronically signed by STALIN SOARES on 06/05/2020 8:11 AM . Perez Cervantes MD DIAGNOSTIC IMAGING [facility] documented in this encounter Visit Diagnoses Diagnosis Encounter for therapeutic drug monitoring documented in this encounter Care Teams Sheet Metal Worker Supervisor Relationship Specialty Start Date End Date Jaspreet Pearl MD PCP - General 08/08/18 03/26/24 documented as of this encounter
--- OUTSIDE RECORDS SUMMARY | 2024-11-13 17:07 | XMS_ITS | Encounter Summary ---
Author Organization [facility] Health Address [address] [place] [address] Care Team Providers Care Colorer Name Role Phone Jaspreet Pearl MD Primary Care Provider + Encounter Details Date Type Department Care Team (Latest Contact Info) Description 12/10/2020 1:45 PM EMERGENCY ROOM TECH - 12/10/2020 11:59 PM EMERGENCY ROOM TECH Hospital Encounter [facility] DIAGNOSTIC RAD OP [address] [place] [address] Perez Cervantes MD [address] [place] [address] Discharge Disposition: Home or Self [...] COVID-19? No / Unsure 12/10/2020 1:40 PM EMERGENCY ROOM TECH documented as of this encounter Medications at Time of Discharge Medication Sig Dispensed Refills Start Date End Date Azelastine HCl 137 MCG/SPRAY SOLN [place] 2 sprays into the nose 2 times [...] WEEKLY 12 syringe 3 02/03/2019 07/11/2024 estradiol (ESTRACE) 0.1 MG/GM vaginal cream Insert 1 g into the vagina Two times a week 10/21/2020 06/09/2021 Estrogens, Conjugated (PREMARIN VA) Insert into the [...] by mouth once daily 03/27/2024 triamcinolone acetonide (KENALOG) 0.1 % ointment Apply 1 Dose to affected area 2 times daily as needed 11/05/2020 06/09/2021 documented as of this encounter Plan of Treatment Upcoming Encounters Date Type Department Care Team (Harsha rabago Contact Info) Description 03/27/2025 1:00 PM CDT Office Visit [facility] - Rheumatology [address] [facility], [place] [phone] Perez Cervantes MD [employer] 2L [place] [address] documented as of this encounter Procedures Procedure Name Priority Date/Time Associated Diagnosis Comments XR FOOT RIGHT 2VW Routine 12/10/2020 1:5 9 PM EMERGENCY ROOM TECH Polyarthritis XR FOOT LEFT 2VW Routine 12/10/2020 1:59 PM EMERGENCY ROOM TECH Polyarthritis documented in this encounter Results * XR FOOT LEFT 2VW (12/10/2020 1:59 PM EMERGENCY ROOM TECH) Anatomical Region Laterality Modality Ankle / Foot Radiographic Corin ging 12/10/2020 2:43 PM EMERGENCY ROOM TECH Impressions 12/10/2020 3:00 PM EMERGENCY ROOM TECH IMPRESSION: No acute fracture, dislocation, or significant arthritis identified. Dictated by Julián De Leon MD (vice president quality). I, Dr. DINH TOLEDO MD have personally reviewed and interpreted this examination/study. This report was electronically signed by DINH TOLEDO MD ??on 12/10/2020 3:00 PM . Narrative 12/10/2020 3:00 PM EMERGENCY ROOM TECH EXAMINATION: XR FOOT RIGHT 2VW, XR FOOT [...] by Julián De Leon MD (vice president quality). Dr. DINH Osorio MD have personally reviewed and interpreted this examination/study. This report was electronically signed by DINH TOLEDO MD on12/10/2020 3:00 PM . Perez Cervantes MD DIAGNOSTIC IMAGING O RDERABLES * XR FOOT RIGHT 2VW (12/10/2020 1:59 PM EMERGENCY ROOM TECH) Anatomical Region Laterality Modality Ankle / Foot Radiographic Corin ging 12/10/2020 2:43 PM EMERGENCY ROOM TECH Impressions 12/10/2020 3:00 PM EMERGENCY ROOM TECH IMPRESSION: No acute fracture, dislocation, or significant arthritis identified. Dictated by Julián De Leon MD (vice president quality). Dr. DINH Osorio MD have personally reviewed and interpreted this examination/study. This report was electronically signed by DINH TOLEDO MD ??on 12/10/2020 3:00 PM . Narrative 12/10/2020 3:00 PM EMERGENCY ROOM TECH EXAMINATION: XR FOOT RIGHT 2VW, XR FOOT [...] by Julián De Leon MD (vice president quality). I, Dr. DINH TOLEDO MD have personally reviewed and interpreted this examination/study. This report was electronically signed by DINH TOLEDO MD on12/10/2020 3:00 PM . Perez Cervantes MD DIAGNOSTIC IMAGING [facility] documented in this encounter Visit Diagnoses Diagnosis Polyarthritis Unspecified polyarthropathy or polyarthritis, site unspecified documented in this encounter Care Teams Colorer Relationship Specialty Start Date End Date Jasprete Pearl MD PCP - General 08/08/18 03/26/24 documented as of this encounter
--- OUTSIDE RECORDS SUMMARY | 2024-11-13 17:07 | XMS_ITS | Encounter Summary ---
Author Organization [facility] Address [address] [facility] [place] [address] Care Team Providers Care Launch Manager Name Role Phone Jaspreet Pearl MD Primary Care Provider + Encounter Details Date Type Department Care Team (Late st Contact Info) Description 03/14/2021 Orders Only [facility] [address] [place] [address] Perez Cervantes MD [address] [place] [address] 2L [place] [address] Polyarthritis; Encounter for therapeutic drug [...] Visit [facility] - Rheumatology [address] [place] [address], [facility] [place] [phone] Perez Cervantes MD [address] [place] [address] 2L [place] [phone] documented as of this encounter Visit Diagnoses Diagnosis Polyarthritis Unspecified polyarthropathy or polyarthritis, site unspecified Encounter for therapeutic drug monitoring documented in this encounter Care Teams Launch Manager Relationship Specialty Start Date End Date Jaspreet Pearl MD PCP - General 08/08/18 03/26/24 documented as of this encounter
--- OUTSIDE RECORDS SUMMARY | 2024-11-13 17:07 | XMS_ITS | Encounter Summary ---
Author Organization [facility] Address [address] [facility] [place] [address] Care Team Providers Care Web Analyst Name Role Phone Jaspreet Pearl MD Primary Care Provider + Reason for Visit * Reason Onset Date Comments MEDICATION REFILL 05/05/2021 Encounter Details Date Type Department Care Team (Late Contact Info) Description 05/05/2021 Refill [facility] [address] [place] [address] Perez Cervantes MD [address] [place] [address] 2[place] [phone] MEDICATION REFILL Social History Tobacco Use Types [...] Visit [facility] - Rheumatology [address] [place] [address], [place] [phone] Perez Cervantes MD [address] [place] [address] 2L [place] [phone] documented as of this encounter Visit Diagnoses Not on filedocumented in this encounter Care Teams Web Analyst Relationship Specialty Start Date End Date Jaspreet Pearl MD PCP - General 08/08/18 03/26/24 documented as of this encounter
--- OUTSIDE RECORDS SUMMARY | 2024-11-13 17:07 | XMS_ITS | Encounter Summary ---
Author Organization [facility] Health Address [address] [facility] [place] [address] Care Team Providers Care Pie Cutter Name Role Phone Jaspreet Pearl MD Primary Care Provider + Reason for Visit * Reason Comments Refill Request Encounter Details Date Type Department Care Team (Late st Contact Info) Description 02/24/2021 Refill [facility] [address] [place] [address], [place] [address] Perez Cervantes MD [address] [place] [address] [place] [address] Refill Request Social History Tobacco [...] encounter Miscellaneous Notes * Telephone Encounter - Sage Hendricks - 02/24/2021 9:00 AM CDT Refill Request Hans Pascual NIKC: 12/10/20 NOV scheduled: 06/09/2021 LRF: 02/26/20 Qty Disp: 30 # of refills: 11 [...] Office Visit [facility] - Rheumatology [address] [place] [address], [place] [address] Perez Cervantes MD [address] [place] [address] [place] [phone] documented as of this encounter Visit Diagnoses Diagnosis Polyarthritis- Primary Unspecified polyarthropathy or polyarthritis, site unspecified documented in this encounter Care Teams Pie Cutter Relationship Specialty Start Date End Date Jaspreet Pearl MD PCP - General 08/08/18 03/26/24 documented as of this encounter
--- OUTSIDE RECORDS SUMMARY | 2024-11-13 17:07 | XMS_ITS | Encounter Summary ---
Author Organization [facility] Health Address [address] [place] [address] Care Team Providers Care Fatback Trimmer Name Role Phone Jaspreet Pearl MD Primary Care Provider + Reason for Visit * Reason Comments Follow-up Polyarthritis Encounter Details Date Type Department Care Team (Latest Contact Info) Description 12/08/2021 3:20 PM PROBATE LAWYER Office Visit [facility] [address] [place] [address], [place] [address] Perez Cervantes MD [address] [place] [address] [place] [address] Polyarthritis (Primary Dx); Encounter for [...] Sign Reading Time Taken Comments Blood Pressure 100/70 12/08/2021 3:37 PM PROBATE LAWYER Pulse - - Temperature 36.6 ??C (97.8 ??F) 12/08/2021 3:37 PM CS T Respiratory Rate - - Oxygen Saturation - - Inhaled Oxygen Concentration - - Weight 79.4 kg (175 lb) 12/08/2021 3:37 PM PROBATE LAWYER Height 172.7 cm (5' 8 ) 12/08/2021 3:37 PM PROBATE LAWYER Body Mass Index 26.61 12/08/2021 3:37 PM PROBATE LAWYER documented in this encounter Progress Notes * Perez Cervantes MD - 12/08/2021 4:01 PM CST (Prob #1) Polyarthritis (All Abs negative) (Prob #2) OA Hands (Labs) Recent Labs Component Name 10/31/21 0732 08/29/21 0728 06/20/21 0732 03/18/18 0735 01/07/18 0744 10/22/17 0734 10/22/17 0734 08/13/17 0734 08/13/17 0734 WBC 3.7* 5.0 4.3 - 4.4 - 4.3 - 3.7* RBC 3.98 4.15 4.06 - 4.14 - 4.33 - 4.31 HGB 12.1 12.6 12.4 - 12.5 - 13.1 - 13.0 HCT 37.3 39.3 38.0 - 37.8 - 40.0 - 39.4 MCV 93.7 94.7 93.6 - 91.3 - 92.4 - 91.4 MCHC 32.4 32.1 32.6 - 33.1 - 32.8 - 33.1 PLTCOUNT 184 219 195 - - - - - - NEUTPCT - - - - 55.7 - 60.3 - 65.4 LYMPHPCT 39.0 25.9 35.3 - - - - - - EOSINPCT 1.6 0.8 2.8 - - - - - - BASOPHILPCT 0.3 0.2 0.5 - - - - - - NEUTABS - - - - 2,451 - 2,593 - 2,420 - = values in this interval not displayed. ESR 14; CRP 0.61 UA WBCs( Culture negative) Recent Labs Component Name 10/31/21 0732 08/29/21 0728 06/20/21 0732 SODIUM 142 139 139 POTASSIUM 4.1 4.5 4.4 CHLORIDE 108 104 103 CO2 22 24 25 BUN 15 13 17 CREATININE 0.75 0.73 0.82 GLUCOSE 76 82 86 CALCIUM 9.1 9.8 9.7 ALT 22 19 19 ALKPHOS 84 85 90 AST 23 20 22 TBIL 0.5 0.6 0.5 TPROT 6.7 7.1 7.3 EGFR 88 91 79 EGFRAFR 102 105 91 ALBUMIN 4.2 4.3 4.4 CXR/Quant Gold negative 07/05 (Subj) Patient remains on 50 mg Enbrel SQ/week, 20 mg MTX/week, 1 mg FA/d, 1 g Nabumetone bid+ other meds. No new rashes, mucosal ulcers, or systemic complaints with constipation with IBS. Minimal AMstiffness. Patient had all 3 Moderna vaccines. Mild iliac tenderness No other new medical problems.Rest of ROS negative. Past/Social/Family History reviewed. (Obj) BP 100/70 Temp 97.8 ??F (36.6 ??C) (Oral) Ht 5' 8 (1.727 m) Wt 175 lb (79.4 kg) BMI 26.61 kg/m2 (Skin) No rashes or eruptions (HEENT) No mucosal ulcers. Moist membranes. No parotid fullness (Neck/Back) No adenopathy/tenderness/thyromegaly (General) Unremarkable (Extrem) HNs DIPs/BNs PIPs/LONG-TERM prominence. Dupuytren's left palm. 1-3rd MCPs SfT0; Ischial tenderness; 2-5th MTPs SfT0; No donta synovitis. MS= bilat (Assess) Stable on present regimen (Plan) Continue same meds with labs q 8 weeks and yearly TB screening. RTO in 6 months. Discussed with patient. Perez Cervantes MD, FACP, FAAP, MACR Sap Data Analyst and Pediatric Rheumatology Professor of Internal Medicine,Pediatrics, and Molecular Immunology [facility] ATE LAWYER documented in this encounter Plan of Treatment Upcoming Encounters Date Type Department Care Team (Late st Contact Info) Description 03/27/2025 1:00 PM CDT Office Visit [facility] - Rheumatology [address] [place] [address], [place] [phone] Perez Cervantes MD [address] [place] [address] documented as of this encounter Visit Diagnoses Diagnosis Polyarthritis- Primary Unspecified polyarthropathy or polyarthritis, site unspecified Encounter for therapeutic drug monitoring documented in this encounter Care Teams Fatback Trimmer Relationship Specialty Start Date End Date Jaspreet Pearl MD PCP - General 08/08/18 03/26/24 documented as of this encounter
--- OUTSIDE RECORDS SUMMARY | 2024-11-13 17:07 | XMS_ITS | Encounter Summary ---
Author Organization [facility] Address [address] [facility] [place] [address] Care Team Providers Care Filler Wiper Name Role Phone Jaspreet Pearl MD Primary Care Provider + Encounter Details Date Type Department Care Team (Latest Contact Info) Description 06/09/2021 Travel Social History Tobacco Use Types Packs/Day [...] Office Visit [facility] - Rheumatology [address] [place] [address], [place] [address] Perez Cervantes MD [address] [place] [address] DIV [place] [address] documented as of this encounter Visit Diagnoses Not on filedocumented in this encounter Care Teams Filler Wiper Relationship Specialty Start Date End Date Jaspreet Pearl MD PCP - General 08/08/18 03/26/24 documented as of this encounter
--- OUTSIDE RECORDS SUMMARY | 2024-11-13 17:07 | XMS_ITS | Encounter Summary ---
Author Organization [facility] Address [address] [facility] [place] [address] Care Team Providers Care Extrusion Die Repairer Name Role Phone Jaspreet Pearl MD Primary Care Provider + Encounter Details Date Type Department Care Team (Late Contact Info) Description 04/17/2022 Orders Only [facility] Pediatrics - Rheumatology [address] [place] [address]. [place] [address] Peerz Cervantes MD [address] [place] [address] 2L [place] [phone] Social History Tobacco Use Types Packs/Day Years [...] Office Visit [facility] - Rheumatology [address] [place] [address], [place] [address] Perez Cervantes MD [address] [place] [address] 2L [place] [phone] documented as of this encounter Visit Diagnoses Not on filedocumented in this encounter Care Teams Extrusion Die Repairer Relationship Specialty Start Date End Date Jaspreet Pearl MD PCP - General 08/08/18 03/26/24 documented as of this encounter
--- OUTSIDE RECORDS SUMMARY | 2024-11-13 17:07 | XMS_ITS | Encounter Summary ---
Author Organization [facility] Health Address [address] [facility] [place] [address] Care Team Providers Care Skiagrapher Name Role Phone Jaspreet Pearl MD Primary Care Provider + Encounter Details Date Type Department Care Team (Latest Contact Info) Description 06/09/2021 3:40 PM CDT - 06/09/2021 11:59 PM CDT Hospital Encounter [facility] DIAGNOSTIC RAD OP [address] [place] [address] Perez Cervantes MD [address] [place] [address] Discharge Disposition: Home or Self [...] End Date Azelastine HCl 137 MCG/SPRAY SOLN Aurora 2 sprays into the nose 2 times [...] ONCE WEEKLY 12 syringe 3 02/03/2019 07/11/2024 Estradiol (IMVEXXY MAINTENANCE PACK) 10 MCG INST Insert 10 mcg into the vagina Twice Daily Twice a Week 04/16/2021 12/08/2021 fexofenadine (PIYUSH ALLERGY) 180 MG tablet Take 180 mg by mouth once daily 08/31/2023 folic acid (FOLVITE) 1 MG tabletIndications:Po lyarthritis TAKE 1 TABLET BY MOUTH DAILY 30 tablet 11 02/24/2021 03/30/2022 methotrexate 2.5 MG tabletIndications:Po lyarthritis TAKE 8 TABLETS EVERY 7 DAYS Reasons: Polyarthritis 96 tablet 3 05/05/2021 01/04/2023 montelukast (SINGULAIR) 10 MG tablet Take 10 [...] 03/27/2025 1:00 PM CDT Office Visit [facility] - Rheumatology [address] [place] [address] [place] [phone] Perez Cervantes MD [address] [place] [address] documented as of this encounter Procedures Procedure Name Priority Date/Time Associated Diagnosis Comments XR CHEST 2VW Routine 06/09/2021 3:51 PM CDT Encounter for therapeutic drug monitoring documented in this encounter Results * XR CHEST 2VW (06/09/2021 3:51 PM CDT) Anatomical Region Laterality Modality Chest Radiographic Corin ging 06/09/2021 3:50 PM CDT Impressions 06/10/2021 12:41 PM CDT FINDINGS/IMPRESSION: There is no focal consolidation, pleural effusion, or pneumothorax. The cardiomediastinal silhouette is normal. The visible bony thorax is intact. Dictated by Maile Luque MD (resident services manager). IDr. ANA LUISA M.D. have personally reviewed and interpreted this [...] thorax isintact. Dictated by Maile Luque MD (resident services manager). Dr. ANA LUISA Osorio M.D. have personally reviewed and interpreted this examination/study. This report was electronically signed by ANA LUISA KAUFMAN M.D. on 06/10/2021 12:41 PM . Perez Cervantes MD DIAGNOSTIC IMAGING O RDERABLES documented in this encounter Visit Diagnoses Diagnosis Encounter for therapeutic drug monitoring documented in this encounter Care Teams Skiagrapher Relationship Specialty Start Date End Date Jaspreet Pearl MD PCP - General 08/08/18 03/26/24 documented as of this encounter
--- OUTSIDE RECORDS SUMMARY | 2024-11-13 17:07 | XMS_ITS | Encounter Summary ---
Author Organization [facility] Address [address] [facility] [place] [address] Care Team Providers Care Farmworker Field Crop Name Role Phone Jaspreet Pearl MD Primary Care Provider + Encounter Details Date Type Department Care Team (Late st Contact Info) Description 01/31/2021 Orders Only [facility] [address] [place] [address] Perez Cervantes MD [address] [place] [address] 2L [place] [address] Polyarthritis; Encounter for therapeutic drug [...] Visit [facility] - Rheumatology [address] [place] [address], [facility] [place] [phone] Perez Cervantes MD [address] [place] [address] 2L [place] [phone] documented as of this encounter Procedures Procedure Name Priority Date/Time Associated Diagnosis Comments CULTURE URINE REFLEXED 7:20 AM CDT URINALYSIS W/MICROSCOPIC REFLEX TO CULTURE Routine 02/21/2021 7:20 AM CDT Polyarthritis Encounter for therapeutic drug monitoring C-REACTIVE PROTEIN Routine 02/21/2021 7: 20 AM CDT Polyarthritis Encounter for therapeutic drug monitoring CULTURE URINE 02/21/2021 7:20 AM CDT ERYTHROCYTE SEDIMENTATION RATE Routine 02/21/2021 7:20 AM CDT Polyarthritis Encounter for therapeutic drug monitoring CBC W AUTO DIFFERENTIAL Routine 02/21/2021 7:20 AM CDT Polyarthritis Encounter for therapeutic drug monitoring COMPREHENSIVE METABOLIC PANEL Routine 02/21/2021 7:20 AM CDT Polyarthritis Encounter for therapeutic drug monitoring documented in this encounter Results * (ABNORMAL) CULTURE URINE (02/21/2021 7:20 AM CDT) Culture (A) [facility] Comment: ??CULTURE, URINE, ROUTINE ?Micro Number: ?[id number] ??Test Status: ? Final ??Specimen Source: ?? URINE ??Specimen Quality: ??Adequate ??Result: ?10,000-49,000 CFU/mL of Pediococcus acidilactici ? Susceptibility testing not routinely ? performed on this isolate. ??COMMENT: ? Additional non-predominating organism(s) isolated. ? These organisms, commonly found on external and ? internal genitalia, are considered colonizers. No ? further testing performed. REPORT COMMENT: FASTING:YES Test Performed at: [facility] [address] [place] [address] ??[phone] ASPEN HOLLINGSWORTH DO,MPH 02/21/2021 7:20 AM CDT 02/21/2021 7:21 AM CDT Perez Cervantes MD LAB - MICROBIOLOGY O JOEY Performing Organization Address [facility] Co de Phone Number [address] [address] * CULTURE URINE REFLEXED (02/21/2021 7:20 AM CDT) Reflexive Urine Culture See Below [facility] Comment: CULTURE INDICATED - RESULTS TO FOLLOW Test Performed at: [facility] [address] [place] [address] ??[phone] ASPEN HOLLINGSWORTH DO,MPH 02/21/2021 7:20 AM CDT 02/21/2021 7:21 AM CDT Perez Cervantes MD LAB - MICROBIOLOGY O JOEY Performing Organization Address [facility] Co de Phone Number [address] [address] * (ABNORMAL) URINALYSIS W/MICROSCOPIC REFLEX TO CULTURE (02/21/2021 7:20 AM CDT) Color UA YELLOW YELLOW [facility] Appearance CLOUDY(A) CLEAR [facility] Specific [place] UA 1.022 1.001 - 1.035 [facility] pH UA 5.5 [...] SEEN /LPF [facility] Comment: Test Performed at: [facility] [address] [place] ??[phone] ASPEN HOLLINGSWORTH DO,MPH Urine URINE SPECIMEN OBTAINED BY CLEAN CATCH PROCEDURE / Unknown 02/21/2021 7:20 AM CDT 02/21/2021 7:21 AM CDT Perez Cervantes MD LAB - URINALYSIS ORD ERABLES Performing Organization Address [facility] Co de Phone Number [address] [address] * C-REACTIVE PROTEIN (02/21/2021 7:20 AM CDT) C-Reactive Protein 5.3 <8.0 mg/L [facility] Comment: Test Performed at: [facility] [address] [place] ??[phone] ASPEN HOLLINGSWORTH DO,MPH Blood BLOOD SPECIMEN / Unknown 02/21/2021 7:20 AM CDT 02/21/2021 7:21 AM CDT Perez Cervantes MD LAB - CHEMISTRY ORDE JOANN Performing Organization Address [facility] de Phone Number [address] [address] * ERYTHROCYTE SEDIMENTATION RATE (02/21/2021 7:20 AM CDT) Erythrocyte Sedimentation Rate Westergren 24 < OR = 30 mm/h [facility] Comment: Test Performed at: [facility] ??[phone] NAVID SCOTT MD Blood BLOOD SPECIMEN / Unknown 02/21/2021 7:20 AM CDT 02/21/2021 7:21 AM CDT Perez Cervantes MD LAB - HEMATOLOGY ORD ERABLES Performing Organization Address [facility] Co de Phone Number [address] [address] * (ABNORMAL) COMPREHENSIVE METABOLIC PANEL (02/21/2021 7:20 AM CDT) Glucose 82 65 - 99 mg/dL [facility] Comment: ? Fasting reference interval BUN 19 7 - 25 mg/dL [facility] Creatinine 0.79 0.50 - 1.05 mg/dL [facility] Comment: For patients >49 years of age, the reference limit for Creatinine is approximately 13% higher for people identified as -Citizen Of [place]. eGFR by MDRD 83 > OR = 60 mL/min/1 .73m2 [facility] eGFR by MDRD 96 > OR = 60 mL/min/1 .73m2 [facility] BUN/Creatinine Ratio NOT APPLICABLE 6 - 22 (calc) [facility] Sodium 139 135 - 146 mmol/L [facility] Potassium 4.1 3.5 - 5.3 mmol/L [facility] Chloride 103 98 - 110 mmol/L [facility] CO2 28 20 - 32 mmol/L [facility] Calcium 9.6 8.6 - 10.4 mg/dL [facility] Protein Total 7.2 6.1 - 8.1 g/dL [facility] Albumin 4.3 3.6 - 5.1 g/dL [facility] Globulin Total 2.9 1.9 - 3.7 g/dL (calc) [facility] Albumin/Globulin Ratio 1.5 1.0 - 2.5 (calc) [facility] Bilirubin Total 0.5 0.2 - 1.2 mg/dL [facility] Alkaline Phosphatase 108 37 - 153 U/L [facility] AST 37(H) 10 - 35 U/L [facility] ALT 51(H) 6 - 29 U/L [facility] Comment: Test Performed at: [facility] [address] [place], [place] ??[phone] ASPEN HOLLINGSWORTH DO,MPH Blood BLOOD SPECIMEN / Unknown 02/21/2021 7:20 AM CDT 02/21/2021 7:21 AM CDT Perez Cervantes MD LAB - CHEMISTRY GERA DAVID [facility] [address] [place] [address] * CBC WITH DIFFERENTIAL (02/21/2021 7:20 AM CDT) [facility] White Blood Cell Count 4.6 3.8 - 10.8 Thousand/u L [facility] RBC 4.25 3.80 - 5.10 Million/uL [facility] Hemoglobin 12.7 11.7 - 15.5 g/dL [facility] Hematocrit 38.9 35.0 - 45.0 % [facility] MCV 91.5 80.0 - 100.0 fL [facility] MCH 29.9 27.0 - 33.0 pg [facility] MCHC 32.6 32.0 - 36.0 g/dL [facility] RDW 14.5 11.0 - 15.0 % [facility] Platelet Count 213 140 - 400 Thousand/u L [facility] MPV 10.9 7.5 - 12.5 fL [facility] Neutrophil Absolute 2323 1500 - 7800 cells/uL [facility] Lymphocytes Absolute 1605 850 - 3900 cells/uL [facility] Absolute Monocytes 570 200 - 950 cells/uL [facility] Eosinophils Absolute 92 15 - 500 cells/uL [facility] Basophils Absolute 9 0 - 200 cells/uL [facility] Granulocytes % 50.5 % [facility] Lymphocytes % 34.9 % [facility] Monocytes % 12.4 % [facility] Eosinophils % 2.0 % [facility] Basophils % 0.2 % [facility] Comment: Test Performed at: [facility] ??[phone] NAVID SCOTT MD Blood BLOOD SPECIMEN / Unknown 02/21/2021 7:20 AM CDT 02/21/2021 7:21 AM CDT Perez Cervantes MD LAB - HEMATOLOGY ORD ERABLES [address] [address] documented in this encounter Visit Diagnoses Diagnosis Polyarthritis Unspecified polyarthropathy or polyarthritis, site unspecified Encounter for therapeutic drug monitoring documented in this encounter Care Teams Farmworker Field Crop Relationship Specialty Start Date End Date Jaspreet Pearl MD PCP - General 08/08/18 03/26/24 documented as of this encounter
--- OUTSIDE RECORDS SUMMARY | 2024-11-13 17:07 | XMS_ITS | Encounter Summary ---
Author Organization [facility] Address [address] [facility] [place] [address] Care Team Providers Care Tipple Tender Name Role Phone Jaspreet Pearl MD Primary Care Provider + Encounter Details Date Type Department Care Team (Late Contact Info) Description 06/07/2020 Orders Only [facility] [address] [place] [address] Perez Cervantes MD [address] [place] [address] [place] [address] Polyarthritis; Encounter for therapeutic drug [...] Visit [facility] - Rheumatology [address] [place] [address], [place] [address] Perez Cervantes MD [facility] [place] [address] documented as of this encounter Visit Diagnoses Diagnosis Polyarthritis Unspecified polyarthropathy or polyarthritis, site unspecified Encounter for therapeutic drug monitoring Encounter for long-term (current) use of medications Encounter for long-term (current) use of other medications documented in this encounter Care Teams Tipple Tender Relationship Specialty Start Date End Date Jaspreet Pearl MD PCP - General 08/08/18 03/26/24 documented as of this encounter
--- OUTSIDE RECORDS SUMMARY | 2024-11-13 17:07 | XMS_ITS | Encounter Summary ---
Author Organization [facility] Address [address] [facility] [place] [address] Care Team Providers Care Rotary Shear Operator Name Role Phone Jaspreet Pearl MD Primary Care Provider + Encounter Details Date Type Department Care Team (Late Contact Info) Description 05/27/2022 Orders Only [facility] [place] [address] Perez Cervantes MD [address] [place] [address] 2L [place] [address] Encounter for therapeutic drug monitoring [...] Visit [facility] - Rheumatology [address] [place] [address], [place] [address] Perez Cervantes MD [address] [place] [address] 2[address] [place] [address] documented as of this encounter Procedures Procedure Name Priority Date/Time Associated Diagnosis Comments COMPREHENSIVE METABOLIC PANEL Routine 05/28/2022 8:17 AM CDT Encounter for therapeutic drug monitoring documented in this encounter Results * (ABNORMAL) COMPREHENSIVE METABOLIC PANEL (05/28/2022 8:17 AM CDT) Glucose 84 65 - 99 mg/dL [facility] Comment: ? Fasting reference interval BUN 15 7 - 25 mg/dL [facility] Creatinine 0.74 0.50 - 1.03 mg/dL [facility] eGFR by Cystatin C 93 > OR = 60 mL/min/1. 73m2 [facility] Comment: The eGFR is based on the CKD-EPI 2020 equation. To calculate the new eGFR from a previous Creatinine or Cystatin C result, go to https://www.kidney.org/professionals/ kdoqi/gfr%5Fcalculator BUN/Creatinine Ratio NOT APPLICABLE 6 - 22 (calc) [facility] Sodium 141 135 - 146 mmol/L [facility] Potassium 4.0 3.5 - 5.3 mmol/L [facility] Chloride 104 98 - 110 mmol/L [facility] CO2 27 20 - 32 mmol/L [facility] Calcium 9.0 8.6 - 10.4 mg/dL [facility] Protein Total 7.0 6.1 - 8.1 g/dL [facility] Albumin 4.2 3.6 - 5.1 g/dL [facility] Globulin Total 2.8 1.9 - 3.7 g/dL (calc) [facility] Albumin/Globuli n Ratio 1.5 1.0 - 2.5 (calc) [facility] Bilirubin Total 0.5 0.2 - 1.2 mg/dL [facility] Alkaline Phosphatase 110 37 - 153 U/L [facility] AST 26 10 - 35 U/L [facility] ALT 39(H) 6 - 29 U/L [facility] Comment: REPORT COMMENT: FASTING:YES Test Performed at: [facility] [address] [place], [place] ??[phone] ASPEN HOLLINGSWORTH DO,MPH Blood BLOOD SPECIMEN / Unknown 05/28/2022 8:17 AM CDT 05/28/2022 8:17 AM CDT Perez Cervantes MD LAB - CHEMISTRY GERA DAVID [facility] [address] [place] [address] documented in this encounter Visit Diagnoses Diagnosis Encounter for therapeutic drug monitoring- Primary documented in this encounter Care Teams Rotary Shear Operator Relationship Specialty Start Date End Date Jaspreet Pearl MD PCP - General 08/08/18 03/26/24 documented as of this encounter
--- OUTSIDE RECORDS SUMMARY | 2024-11-13 17:07 | XMS_ITS | Encounter Summary ---
Author Organization [facility] Address [address] [facility] [place] [address] Care Team Providers Care Head Of Sales Promotion Name Role Phone Jaspreet Pearl MD Primary Care Provider + Encounter Details Date Type Department Care Team (Late Contact Info) Description 09/27/2020 Orders Only [facility] [address] [place] [address] Perez Cervantes MD [address] [place] [address] 2L [place] [address] Polyarthritis; Encounter for therapeutic drug [...] Office Visit [facility] - Rheumatology [address] [place] [address], [place] [address] Perez Cervantes MD [address] [place] [address] 2L [place] [address] documented as of this encounter Procedures Procedure Name Priority Date/Time Associated Diagnosis Comments CULTURE URINE REFLEXED I 10/18/2020 7:16 AM DECOMMISSIONING WELL SITE MANAGER documented in this encounter Results * CULTURE URINE REFLEXED I (10/18/2020 7:16 AM DECOMMISSIONING WELL SITE MANAGER) Reflexive Urine Culture See Below [facility] Comment: NO CULTURE INDICATED Test Performed at: [facility] [address] [place] [address] ??[phone] ASPEN HOLLINGSWORTH DO,MPH 10/18/2020 7:16 AM DECOMMISSIONING WELL SITE MANAGER 10/18/2020 7:17 AM DECOMMISSIONING WELL SITE MANAGER Perez Cervantes MD LAB - MICROBIOLOGY O RDERABLES [facility] [address] [place] [address] documented in this encounter Visit Diagnoses Diagnosis Polyarthritis Unspecified polyarthropathy or polyarthritis, site unspecified Encounter for therapeutic drug monitoring Encounter for long-term (current) use of medications Encounter for long-term (current) use of other medications documented in this encounter Care Teams Head Of Sales Promotion Relationship Specialty Start Date End Date Jaspreet Pearl MD PCP - General 08/08/18 03/26/24 documented as of this encounter
--- OUTSIDE RECORDS SUMMARY | 2024-11-13 17:07 | XMS_ITS | Encounter Summary ---
Author Organization [facility] Address [address] [place] [address] Care Team Providers Care Pan Devulcanizer Helper Name Role Phone Jaspreet Pearl MD Primary Care Provider + Encounter Details Date Type Department Care Team (Late Contact Info) Description 07/05/2020 Orders Only [facility] [address] [place] [address] Perez Cervantes MD [address] [place] [address] 2L [place] [address] Polyarthritis; Encounter for therapeutic drug [...] Office Visit [facility] - Rheumatology [address] [place] [address], [place] [phone] Perez Cervantes MD [address] [place] [address] 2L [place] [address] documented as of this encounter Visit Diagnoses Diagnosis Polyarthritis Unspecified polyarthropathy or polyarthritis, site unspecified Encounter for therapeutic drug monitoring documented in this encounter Care Teams Pan Devulcanizer Helper Relationship Specialty Start Date End Date Jaspreet Pearl MD PCP - General 08/08/18 03/26/24 documented as of this encounter
--- OUTSIDE RECORDS SUMMARY | 2024-11-13 17:07 | XMS_ITS | Encounter Summary ---
Author Organization [facility] Address [address] [facility] [place] [address] Care Team Providers Care Product Manager E Commerce Name Role Phone Jaspreet Pearl MD Primary Care Provider + Encounter Details Date Type Department Care Team (Late st Contact Info) Description 08/16/2020 Orders Only [facility] [address] [place] [address] Perez Cervantes MD [address] [place] [address] 2L [place] [address] Polyarthritis; Encounter for therapeutic drug [...] Office Visit [facility] - Rheumatology [address] [place] [address], [place] [phone] Perez Cervantes MD [address] [place] [address] 2[address] [place] [address] documented as of this encounter Procedures Procedure Name Priority Date/Time Associated Diagnosis Comments URINALYSIS W/MICROSCOPIC REFLEX TO CULTURE Routine 10/18/2020 7:16 AM MICROBIOLOGY INSTRUCTOR Polyarthritis Encounter for therapeutic drug monitoring C-REACTIVE PROTEIN Routine 10/18/2020 7: 16 AM MICROBIOLOGY INSTRUCTOR Polyarthritis Encounter for therapeutic drug monitoring ERYTHROCYTE SEDIMENTATION RATE Routine 10/18/2020 7:16 AM MICROBIOLOGY INSTRUCTOR Polyarthritis Encounter for therapeutic drug monitoring CBC W AUTO DIFFERENTIAL Routine 10/18/2020 7:16 AM MICROBIOLOGY INSTRUCTOR Polyarthritis Encounter for therapeutic drug monitoring COMPREHENSIVE METABOLIC PANEL Routine 10/18/2020 7:16 AM MICROBIOLOGY INSTRUCTOR Polyarthritis Encounter for therapeutic drug monitoring documented in this encounter Results * URINALYSIS W/MICROSCOPIC REFLEX TO CULTURE (10/18/2020 7:16 AM MICROBIOLOGY INSTRUCTOR) Color UA YELLOW YELLOW [facility] Appearance CLEAR CLEAR [facility] Specific [place] UA 1.018 1.001 - 1.035 [facility] pH UA 5.5 [...] SEEN /LPF [facility] Comment: Test Performed at: [employer] [address] ??[phone] ASPEN HOLLINGSWORTH DO,MPH Urine URINE SPECIMEN OBTAINED BY CLEAN CATCH PROCEDURE / Unknown 10/18/2020 7:16 AM MICROBIOLOGY INSTRUCTOR 10/18/2020 7:17 AM MICROBIOLOGY INSTRUCTOR Perez Cervantes MD LAB - URINALYSIS ORD ERABLES [facility] [address] [place] [address] * C-REACTIVE PROTEIN (10/18/2020 7:16 AM MICROBIOLOGY INSTRUCTOR) C-Reactive Protein 2.5 <8.0 mg/L [facility] Comment: Test Performed at: [facility] [place] [id number] [place] ??[phone] ASPEN HOLLINGSWORTH DO,MPH Blood BLOOD SPECIMEN / Unknown 10/18/2020 7:16 AM MICROBIOLOGY INSTRUCTOR 10/18/2020 7:17 AM MICROBIOLOGY INSTRUCTOR Perez Cervantes MD LAB - CHEMISTRY ORDE JOANN Performing Organization Address [facility] Co de Phone Number [address] [address] * ERYTHROCYTE SEDIMENTATION RATE (10/18/2020 7:16 AM MICROBIOLOGY INSTRUCTOR) Pathologist [facility] Erythrocyte Sedimentation Rate Westergren 11 < OR = 30 mm/h [facility] Comment: Test Performed at: [address] ??[phone] NAVID SCOTT MD Blood BLOOD SPECIMEN / Unknown 10/18/2020 7:16 AM MICROBIOLOGY INSTRUCTOR 10/18/2020 7:17 AM MICROBIOLOGY INSTRUCTOR Perez Cervantes MD LAB - HEMATOLOGY ORD BRETTBLES Performing Organization Address [facility] Co de Phone Number [place] [phone] * COMPREHENSIVE METABOLIC PANEL (10/18/2020 7:16 AM MICROBIOLOGY INSTRUCTOR) Pathologist [facility] Glucose 80 65 - 99 mg/dL [facility] Comment: ? Fasting reference interval BUN 17 7 - 25 mg/dL [facility] Creatinine 0.66 0.50 - 1.05 mg/dL [facility] Comment: For patients >49 years of age, the reference limit for Creatinine is approximately 13% higher for people identified as -[place]. eGFR by MDRD 98 > OR = 60 mL/min/1 .73m2 [facility] eGFR by MDRD 114 > OR = 60 mL/min/1 .73m2 [facility] BUN/Creatinine Ratio NOT APPLICABLE 6 - 22 (calc) [facility] Sodium 141 135 - 146 mmol/L [facility] Potassium 4.2 3.5 - 5.3 mmol/L [facility] Chloride 106 98 - 110 mmol/L [facility] CO2 25 20 - 32 mmol/L [facility] Calcium 9.2 8.6 - 10.4 mg/dL [facility] Protein Total 6.6 6.1 - 8.1 g/dL [facility] Albumin 4.2 3.6 - 5.1 g/dL [facility] Globulin Total 2.4 1.9 - 3.7 g/dL (calc) [facility] Albumin/Globulin Ratio 1.8 1.0 - 2.5 (calc) [facility] Bilirubin Total 0.5 0.2 - 1.2 mg/dL [facility] Alkaline Phosphatase 84 37 - 153 U/L [facility] AST 21 10 - 35 U/L [facility] ALT 26 6 - 29 U/L [facility] Comment: Test Performed at: [facility] [address] [place] ??[phone] ASPEN HOLLINGSWORTH DO,MPH Blood BLOOD SPECIMEN / Unknown 10/18/2020 7:16 AM MICROBIOLOGY INSTRUCTOR 10/18/2020 7:17 AM MICROBIOLOGY INSTRUCTOR Perez Cervantes MD LAB - CHEMISTRY GERA DAVID Performing Organization Address City/State/[facility] Co de Phone Number [facility] [address] [place] [address] * (ABNORMAL) CBC WITH DIFFERENTIAL (10/18/2020 7:16 AM MICROBIOLOGY INSTRUCTOR) White Blood Cell Count 3.6(L) 3.8 - 10.8 Thousand/ uL [facility] RBC 4.06 3.80 - 5.10 Million/u L [facility] Hemoglobin 12.3 11.7 - 15.5 g/dL [facility] Hematocrit 37.7 35.0 - 45.0 % [facility] MCV 92.9 80.0 - 100.0 fL [facility] MCH 30.3 27.0 - 33.0 pg [facility] MCHC 32.6 32.0 - 36.0 g/dL [facility] RDW 14.2 11.0 - 15.0 % [facility] Platelet Count 199 140 - 400 Thousand/ uL [facility] MPV 11.2 7.5 - 12.5 fL [facility] Neutrophil Absolute 1548 1500 - 7800 cells/uL [facility] Lymphocytes Absolute 1508 850 - 3900 cells/uL [facility] Absolute Monocytes 421 200 - 950 cells/uL [facility] Eosinophils Absolute 101 15 - 500 cells/uL [facility] Basophils Absolute 22 0 - 200 cells/uL [facility] Granulocytes % 43 % [facility] Lymphocytes % 41.9 % [facility] Monocytes % 11.7 % [facility] Eosinophils % 2.8 % [facility] Basophils % 0.6 % [facility] Comment: Test Performed at: [facility] [address] [place], [place] ??[phone] NAVID SCOTT MD Blood BLOOD SPECIMEN / Unknown 10/18/2020 7:16 AM MICROBIOLOGY INSTRUCTOR 10/18/2020 7:17 AM MICROBIOLOGY INSTRUCTOR Perez Cervantes MD LAB - HEMATOLOGY ORD ERABLES Performing Organization Address City/State/[facility] Co de Phone Number [address] [address] documented in this encounter Visit Diagnoses Diagnosis Polyarthritis Unspecified polyarthropathy or polyarthritis, site unspecified Encounter for therapeutic drug monitoring documented in this encounter Care Teams Product Manager E Commerce Relationship Specialty Start Date End Date Jaspreet Pearl MD PCP - General 08/08/18 03/26/24 documented as of this encounter
--- OUTSIDE RECORDS SUMMARY | 2024-11-13 17:08 | XMS_ITS | Encounter Summary ---
Author Organization [facility] Address [address] [place] [address] Care Team Providers Care Sand Caster Name Role Phone Jaspreet Pearl MD Primary Care Provider + Encounter Details Date Type Department Care Team (Late Contact Info) Description 05/26/2019 Orders Only [facility] [address] [place] [address] Perez Cervantes MD [address] [place] [address] 2L [place] [phone] Polyarthritis; Encounter for therapeutic drug monitoring Social History Tobacco Use Types Packs/Day Years Used Date Smoking Tobacco: Never Smokeless Tobacco: Never Alcohol Use Standard Drinks/Week [...] Office Visit [facility] - Rheumatology [address] [place] [address], [place] [phone] Perez Cervantes MD [address] [place] [address] 2L [place] [phone] documented as of this encounter Procedures Procedure Name Priority Date/Time Associated Diagnosis Comments CULTURE URINE REFLEXED I 06/06/2019 8:19 AM CDT URINALYSIS W/MICROSCOPIC REFLEX TO CULTURE Routine 06/06/2019 8:19 AM CDT Polyarthritis Encounter for therapeutic drug monitoring C-REACTIVE PROTEIN Routine 06/06/2019 8: 19 AM CDT Polyarthritis Encounter for therapeutic drug monitoring ERYTHROCYTE SEDIMENTATION RATE Routine 06/06/2019 8:19 AM CDT Polyarthritis Encounter for therapeutic drug monitoring CBC W AUTO DIFFERENTIAL Routine 06/06/2019 8:19 AM CDT Polyarthritis Encounter for therapeutic drug monitoring COMPREHENSIVE METABOLIC PANEL Routine 06/06/2019 8:19 AM CDT Polyarthritis Encounter for therapeutic drug monitoring QUANTIFERON-TB GOLD PLUS 1-TUBE 06/06/2019 8:15 AM CDT documented in this encounter Results * CULTURE URINE REFLEXED I (06/06/2019 8:19 AM CDT) Reflexive Urine Culture NO CULTURE INDICATED [facility] Comment: Test Performed at: [facility] [address] ??[phone] ASPEN HOLLINGSWORTH DO,MPH 06/06/2019 8:19 AM CDT 06/06/2019 8:20 AM CDT Perez Cervantes MD LAB - MICROBIOLOGY O RDERABLES [facility] [address] [place] [address] * URINALYSIS W/MICROSCOPIC REFLEX TO CULTURE (06/06/2019 8:19 AM CDT) Color UA YELLOW YELLOW [facility] Appearance CLEAR CLEAR [facility] Specific [place] UA 1.020 1.001 - 1.035 [facility] pH [...] SEEN /LPF [facility] Comment: Test Performed at: [facility] [address] ??[address] ASPEN HOLLINGSWORTH DO,MPH Granular Casts [facility] Casts UA [facility] Yeast [facility] Comments [facility] Note [facility] Comment: Test Performed at: [facility] [address] ??[phone] ASPEN HOLLINGSWORTH DO,MPH Reflexive Urine Culture NO CULTURE INDICATED [facility] Comment: Test Performed at: [facility] [address] ??[phone] ASPEN HOLLINGSWORTH DO,MPH Urine URINE SPECIMEN OBTAINED BY CLEAN CATCH PROCEDURE / Unknown 06/06/2019 8:19 AM CDT 06/06/2019 8:20 AM CDT Perez Cervantes MD LAB - URINALYSIS ORD ERABLES Performing Organization Address [facility] Co de Phone Number [address] [address] * ERYTHROCYTE SEDIMENTATION RATE (06/06/2019 8:19 AM CDT) Erythrocyte Sedimentation Rate Westergren 19 < OR = 30 mm/h [facility] Comment: Test Performed at: [facility] ??[phone] NAVID SCOTT MD Blood BLOOD SPECIMEN / Unknown 06/06/2019 8:19 AM CDT 06/06/2019 8:20 AM CDT Perez Cervantes MD LAB - HEMATOLOGY ORD ERABLES Performing Organization Address City/[facility] Co de Phone Number [address] [address] * COMPREHENSIVE METABOLIC PANEL (06/06/2019 8:19 AM CDT) Glucose 93 65 - 99 mg/dL [facility] Comment: ? Fasting reference interval BUN 14 7 - 25 mg/dL [facility] Creatinine 0.86 0.50 - 1.05 mg/dL [facility] Comment: For patients >49 years of age, the reference limit for Creatinine is approximately 13% higher for people identified as -Sudanese. eGFR by MDRD 76 > OR = 60 mL/min/1 .73m2 [facility] eGFR by MDRD 88 > OR = 60 mL/min/1 .73m2 [facility] BUN/Creatinine Ratio NOT APPLICABLE 6 - 22 (calc) [facility] Sodium 141 135 - 146 mmol/L [facility] Potassium 4.0 3.5 - 5.3 mmol/L [facility] Chloride 103 98 - 110 mmol/L [facility] CO2 25 20 - 32 mmol/L [facility] Calcium 9.7 8.6 - 10.4 mg/dL [facility] Protein Total 7.4 6.1 - 8.1 g/dL [facility] Albumin 4.5 3.6 - 5.1 g/dL [facility] Globulin Total 2.9 1.9 - 3.7 g/dL (calc) [facility] Albumin/Globulin Ratio 1.6 1.0 - 2.5 (calc) [facility] Bilirubin Total 0.5 0.2 - 1.2 mg/dL [facility] Alkaline Phosphatase 104 33 - 130 U/L [facility] AST 21 10 - 35 U/L [facility] ALT 24 6 - 29 U/L [facility] Comment: Test Performed at: [facility] [address] [place], [place] ??[address] ASPEN HOLLINGSWORTH DO,MPH Blood BLOOD SPECIMEN / Unknown 06/06/2019 8:19 AM CDT 06/06/2019 8:20 AM CDT Perez Cervantes MD LAB - CHEMISTRY [facility]ER[facility] DAVID [facility] [address] [place] [address] * C-REACTIVE PROTEIN (06/06/2019 8:19 AM CDT) Pathologist [facility] C-Reactive Protein 3.8 <8.0 mg/L [facility] Comment: Test Performed at: [facility] [address] [place] ??[phone] ASPEN HOLLINGSWORTH DO,MPH Blood BLOOD SPECIMEN / Unknown 06/06/2019 8:19 AM CDT 06/06/2019 8:20 AM CDT Perez Cervantes MD LAB - CHEMISTRY GERA DAVID [facility] [address] [place] [address] * (ABNORMAL) CBC WITH DIFFERENTIAL (06/06/2019 8:19 AM CDT) White Blood Cell Count 4.7 3.8 - 10.8 Thousand/ uL [facility] RBC 4.16 3.80 - 5.10 Million/u L [facility] Hemoglobin 12.6 11.7 - 15.5 g/dL [facility] Hematocrit 38.6 35.0 - 45.0 % [facility] MCV 92.8 80.0 - 100.0 fL [facility] MCH 30.3 27.0 - 33.0 pg [facility] MCHC 32.6 32.0 - 36.0 g/dL [facility] RDW 15.3(H) 11.0 - 15.0 % [facility] Platelet Count 218 140 - 400 Thousand/ uL [facility] MPV 10.7 7.5 - 12.5 fL [facility] Neutrophil Absolute 2500 1500 - 7800 cells/uL [facility] Absolute Bands [facility] Metamyelocytes Absolute [facility] Myelocytes Absolute [facility] Absolute Prolymphocytes [facility] Lymphocytes Absolute 1424 850 - 3900 cells/uL [facility] Absolute Monocytes 667 200 - 950 cells/uL [facility] Eosinophils Absolute 99 15 - 500 cells/uL [facility] Basophils Absolute 9 0 - 200 cells/uL [facility] Absolute Blasts [facility] nRBC Absolute [facility] Granulocytes % 53.2 % [facility] Band Neutrophil [facility] Metamyelocytes [facility] Myelocytes [facility] Promyelocytes [facility] Lymphocytes % 30.3 % [facility] Lymphocyte Reactive [facility] Monocytes % 14.2 % [facility] Eosinophils % 2.1 % [facility] Basophils % 0.2 % [facility] Comment: Test Performed at: [facility] [address] [place], [place] ??[address] ASPEN HOLLINGSWORTH DO,MPH Blasts [facility] nRBC [facility] Comments [facility] Comment: Test Performed at: [facility] [place] [address] [place] ??[address] ASPEN HOLLINGSWORTH DO,MPH Blood BLOOD SPECIMEN / Unknown 06/06/2019 8:19 AM CDT 06/06/2019 8:20 AM CDT Perez Cervantes MD LAB - HEMATOLOGY JUVENTINO SAMAYOA Performing Organization Address [facility] Co de Phone Number [address] [address] [place] [address] * QUANTIFERON-TB GOLD PLUS 1-TUBE (06/06/2019 8:15 AM CDT) [facility] QuantiFERON TB Gold Plus NEGATIVE [...] T-lymphocytes. For additional information, please refer to https://education.Red's All natural/faq/JYJ147 (This link is being provided for informational/ educational purposes only.) Test Performed at: [facility] [address] ??[phone] ASPEN HOLLINGSWORTH DO,MPH 06/06/2019 8:15 AM CDT 06/06/2019 8:16 AM CDT Perez Cervantes MD LAB - CHEMISTRY GERA DAVID Performing Organization Address [facility] Co de Phone Number [address] [address] [place] [address] documented in this encounter Visit Diagnoses Diagnosis Polyarthritis Unspecified polyarthropathy or polyarthritis, site unspecified Encounter for therapeutic drug monitoring documented in this encounter Care Teams Sand Caster Relationship Specialty Start Date End Date Jaspreet Pearl MD PCP - General 08/08/18 03/26/24 documented as of this encounter
--- OUTSIDE RECORDS SUMMARY | 2024-11-13 17:08 | XMS_ITS | Encounter Summary ---
Author Organization [facility] Address [address] [facility] [place] [address] Care Team Providers Care Landscaping Manager Name Role Phone Jaspreet Pearl MD Primary Care Provider + Encounter Details Date Type Department Care Team (Late Contact Info) Description 04/12/2020 Orders Only [facility] [address] [place] [address] Perez Cervantes MD [address] [place] [address] 2L [place] [address] Polyarthritis ; Encounter for therapeutic [...] Visit [facility] - Rheumatology [address] [place] [address], [place] [phone] Perez Cervantes MD [address] [place] [address] 2L [place] [address] Scheduled Orders Name Type Priority Associated Diagnoses Orde r Schedule URINALYSIS W/MICROSCOPIC REFLEX TO CULTURE Lab Routine Polyarthritis Encounter for therapeutic drug monitoring Encounter for long-term (current) use of medications [id number] for 4 Occurrences starting 04/12/2020 until 10/14/2020, 1 completed CBC WITH DIFFERENTIAL Lab Routine Polyarthritis Encounter for therapeutic drug monitoring Encounter for long-term (current) use of medications E-[id number] for 4 Occurrences starting 04/12/2020 until 10/14/2020, 1 completed COMPREHENSIVE METABOLIC PANEL Lab Routine Polyarthritis Encounter for therapeutic drug monitoring Encounter for long-term (current) use of medications E-[id number] for 4 Occurrences starting 04/12/2020 until 10/14/2020, 1 completed ERYTHROCYTE SEDIMENTATION RATE Lab Routine Polyarthritis Encounter for therapeutic drug monitoring Encounter for long-term (current) use of medications E-[id number] for 4 Occurrences starting 04/12/2020 until 10/14/2020, 1 completed C-REACTIVE PROTEIN Lab Routine Polyarthritis Encounter for therapeutic drug monitoring Encounter for long-term (current) use of medications E-[id number] for 4 Occurrences starting 04/12/2020 until 10/14/2020, 1 completed documented as of this encounter Results * C-REACTIVE PROTEIN (08/13/2020 7:17 AM CDT) Pathologist [facility] C-Reactive Protein 2.7 <8.0 mg/L [facility] Comment: Test Performed at: [place], [place] ??[address] ASPEN HOLLINGSWORTH DO,MPH Blood BLOOD SPECIMEN / Unknown 08/13/2020 7:17 AM CDT 08/13/2020 7:18 AM CDT Perez Cervantes MD LAB - CHEMISTRY GERA DAVID [facility] [address] [place] [address] * ERYTHROCYTE SEDIMENTATION RATE (08/13/2020 7:17 AM CDT) Erythrocyte Sedimentation Rate Westergren 11 < OR = 30 mm/h [facility] Comment: Test Performed at: [place] [place], [place] ??[address] ASPEN HOLLINGSWORTH DO,MPH Blood BLOOD SPECIMEN / Unknown 08/13/2020 7:17 AM CDT 08/13/2020 7:18 AM CDT Perez Cervantes MD LAB - [facility] [address] [place] [address] * COMPREHENSIVE METABOLIC PANEL (08/13/2020 7:17 AM CDT) Pathologist [facility] Glucose 85 65 - 99 mg/dL [facility] Comment: ? Fasting reference interval BUN 13 7 - 25 mg/dL [facility] Creatinine 0.76 0.50 - 1.05 mg/dL [facility] Comment: For patients >49 years of age, the reference limit for Creatinine is approximately 13% higher for people identified as -Finnish. eGFR by MDRD 87 > OR = [...] 29 U/L [facility] Comment: Test Performed at: [facility] [address] [place] ??[phone] ASPEN HOLLINGSWORTH DO,MPH Blood BLOOD SPECIMEN / Unknown 08/13/2020 7:17 AM CDT 08/13/2020 7:18 AM CDT Perez Cervantes MD LAB - CHEMISTRY GERA DAVID [facility] [address] [place] [id number] * CBC WITH DIFFERENTIAL (08/13/2020 7:17 AM [...] 0.4 % [facility] Comment: Test Performed at: [facility] ??[phone] ASPEN HOLLINGSWORTH DO,MPH Blood BLOOD SPECIMEN / Unknown 08/13/2020 7:17 AM CDT 08/13/2020 7:18 AM CDT Perez Cervantes MD LAB - HEMATOLOGY JUVENTINO SAMAYOA [facility] [address] [place] [phone] * (ABNORMAL) URINALYSIS W/MICROSCOPIC REFLEX TO CULTURE (08/13/2020 7:17 AM CDT) Color UA YELLOW YELLOW [facility] Appearance CLEAR CLEAR [facility] Specific [place] UA 1.016 1.001 - 1.035 [facility] pH [...] SEEN /LPF [facility] Comment: Test Performed at: [facility] [address] [place], [place] ??[address] ASPEN HOLLINGSWORTH DO,MPH Granular Casts [facility] Casts UA [facility] Yeast [facility] Comments [facility] Note [facility] Comment: Test Performed at: [facility] [address] [place], [place] ??[address] ASPEN HOLLINGSWORTH DO,MPH Urine URINE SPECIMEN OBTAINED BY CLEAN CATCH PROCEDURE / Unknown 08/13/2020 7:17 AM CDT 08/13/2020 7:18 AM CDT Perez Cervantes MD LAB - URINALYSIS ORD ERABLES Performing Organization Address City/State/[facility] Co de Phone Number [facility] [address] [place] [address] documented in this encounter Visit Diagnoses Diagnosis Polyarthritis- Primary Unspecified polyarthropathy or polyarthritis, site unspecified Encounter for therapeutic drug monitoring Encounter for long-term (current) use of medications Encounter for long-term (current) use of other medications documented in this encounter Care Teams Landscaping Manager Relationship Specialty Start Date End Date Jaspreet Pearl MD PCP - General 08/08/18 03/26/24 documented as of this encounter
--- OUTSIDE RECORDS SUMMARY | 2024-11-13 17:08 | XMS_ITS | Encounter Summary ---
Author Organization [facility] Address [address] [facility] [place] [address] Care Team Providers Care Canceling And Cutting Control Clerk Name Role Phone Jaspreet Pearl MD Primary Care Provider + Reason for Visit * Reason Onset Date Comments MEDICATION REFILL 02/02/2019 Encounter Details Date Type Department Care Team (Late Contact Info) Description 02/02/2019 Refill [facility] Pediatrics - Rheumatology [address] [place] [address] Perez Cervantes MD [address] [place] [address] 2L [place] [phone] MEDICATION REFILL Social History Tobacco Use Types [...] Office Visit [facility] - Rheumatology [address] [place] [address], [place] [phone] Perez Cervantes MD [address] [place] [address] 2L [place] [phone] documented as of this encounter Visit Diagnoses Not on filedocumented in this encounter Care Teams Canceling And Cutting Control Clerk Relationship Specialty Start Date End Date Jaspreet Pearl MD PCP - General 08/08/18 03/26/24 documented as of this encounter
--- OUTSIDE RECORDS SUMMARY | 2024-11-13 17:08 | XMS_ITS | Encounter Summary ---
Author Organization [facility] Address [address] [facility] [place] [address] Care Team Providers Care Powertrain Design Engineer Name Role Phone Toney Munroe MD Primary Care Provider Encounter Details Date Type Department Care Team (Late Contact Info) Description 03/18/2018 Orders Only [facility] Rheumatology [facility] [place] [address] Katina Blankenship, RN Encounter for therapeutic drug monitoring ; Encounter for long-term (current) use of medications; Polyarthritis; Primary osteoarthritis involving multiple joints Social History Tobacco Use Types Packs/Day Years Used Date Smoking Tobacco: Never Assessed Sex and Gender Information Value Date Recorded Sex Assigned at Not on file Gender Identity Not on file Sexual Orientation Not on file documented as of this encounter Plan of Treatment Upcoming Encounters Date Type Department Care Team (Late Contact Info) Description 03/27/2025 1:00 PM CDT Office Visit [facility] - Rheumatology [address] [place] [address], [facility] [place] [phone] Perez Cervantes MD [address] [place] [address] [place] [phone] documented as of this encounter Procedures Procedure Name Priority Date/Time Associated Diagnosis Comments CULTURE URINE REFLEXED I 03/18/2018 7:35 AM CDT Encounter for therapeutic drug monitoring Encounter for long-term (current) use of medications Polyarthritis Primary osteoarthritis involving multiple joints URINALYSIS W/MICROSCOPIC REFLEX TO CULTURE Routine 03/18/2018 7:35 AM CDT Encounter for therapeutic drug monitoring Encounter for long-term (current) use of medications Polyarthritis Primary osteoarthritis involving multiple joints C-REACTIVE PROTEIN Routine 03/18/2018 7: 35 AM CDT Encounter for therapeutic drug monitoring Encounter for long-term (current) use of medications Polyarthritis Primary osteoarthritis involving multiple joints ERYTHROCYTE SEDIMENTATION RATE Routine 03/18/2018 7:35 AM CDT Encounter for therapeutic drug monitoring Encounter for long-term (current) use of medications Polyarthritis Primary osteoarthritis involving multiple joints CBC W AUTO DIFFERENTIAL Routine 03/18/2018 7:35 AM CDT Encounter for therapeutic drug monitoring Encounter for long-term (current) use of medications Polyarthritis Primary osteoarthritis involving multiple joints COMPREHENSIVE METABOLIC PANEL Routine 03/18/2018 7:35 AM CDT Encounter for therapeutic drug monitoring Encounter for long-term (current) use of medications Polyarthritis Primary osteoarthritis involving multiple joints documented in this encounter Results * CULTURE URINE REFLEXED I (03/18/2018 7:35 AM CDT) Reflexive Urine Culture NO CULTURE INDICATED [facility] Comment: REPORT COMMENT: SPECIMEN TYPE->URINE Test Performed at: [facility] [id number] [place] [address] ??[phone] ASPEN HOLLINGSWORTH DO,MPH 03/18/2018 7:35 AM CDT 03/18/2018 7:35 AM CDT Preez Cervantes MD LAB - MICROBIOLOGY O RDERABLES [facility] [address] [place] [address] * URINALYSIS W/MICROSCOPIC REFLEX TO CULTURE (03/18/2018 7:35 AM CDT) Color UA YELLOW YELLOW [facility] Appearance CLEAR CLEAR [facility] Specific [place] UA 1.019 1.001 - 1.035 [facility] pH UA 5.5 5.0 - 8.0 [facility] Glucose UA NEGATIVE NEGATIVE [facility] Reducing Substances [facility] Bilirubin UA NEGATIVE NEGATIVE [facility] Ketone [...] SEEN /LPF [facility] Comment: Test Performed at: [facility] [address] [place], [place] ??[address] ASPEN HOLLINGSWORTH DO,MPH Granular Casts [facility] Casts UA [facility] Yeast [facility] Comments [facility] Note [facility] Comment: Test Performed at: [facility] [address] [place], [place] ??[address] ASPEN HOLLINGSWORTH DO,MPH Urine URINE SPECIMEN OBTAINED BY CLEAN CATCH PROCEDURE / Unknown 03/18/2018 7:35 AM CDT 03/18/2018 7:35 AM CDT Perez Cervantes MD LAB - URINALYSIS ORD ERABLES Performing Organization Address [facility] Co de Phone Number [address] [address] * (ABNORMAL) ERYTHROCYTE SEDIMENTATION RATE (03/18/2018 7:35 AM CDT) Erythrocyte Sedimentation Rate Westergren 36(H) < OR = 30 mm/h [facility] Comment: Test Performed at: [facility] ??[phone] NAVID SCOTT MD Blood BLOOD SPECIMEN / Unknown 03/18/2018 7:35 AM CDT 03/18/2018 7:35 AM CDT Perez Cervantes MD LAB - HEMATOLOGY ORD ERABLES Performing Organization Address [facility] Co de Phone Number [address] [address] * (ABNORMAL) C-REACTIVE PROTEIN (03/18/2018 7:35 AM CDT) Pathologist [facility] C-Reactive Protein 28.9(H) <8.0 mg/L [facility] Comment: Test Performed at: [facility] [address] ??[phone] ASPEN HOLLINGSWORTH DO,MPH Blood BLOOD SPECIMEN / Unknown 03/18/2018 7:35 AM CDT 03/18/2018 7:35 AM CDT Perez Cervantes MD LAB - CHEMISTRY GERA DAVID [address] [address] * CBC W AUTO DIFFERENTIAL (03/18/2018 7:35 AM CDT) [facility] White Blood Cell Count 6.3 3.8 - 10.8 Thousand/u L [facility] RBC 4.00 3.80 - 5.10 Million/uL [facility] Hemoglobin 12.0 11.7 - 15.5 g/dL [facility] Hematocrit 36.4 35.0 - 45.0 % [facility] MCV 91.0 80.0 - 100.0 fL [facility] MCH 30.0 27.0 - 33.0 pg [facility] MCHC 33.0 32.0 - 36.0 g/dL [facility] RDW 14.4 11.0 - 15.0 % [facility] Platelet Count 234 140 - 400 Thousand/u L [facility] MPV 10.8 7.5 - 12.5 fL [facility] Neutrophil Absolute 4177 1500 - 7800 cells/uL [facility] Lymphocytes Absolute 1235 850 - 3900 cells/uL [facility] Absolute Monocytes 561 200 - 950 cells/uL [facility] Eosinophils Absolute 296 15 - 500 cells/uL [facility] Basophils Absolute 32 0 - 200 cells/uL [facility] Granulocytes % 66.3 % [facility] Lymphocytes % 19.6 % [facility] Monocytes % 8.9 % [facility] Eosinophils % 4.7 % [facility] Basophils % 0.5 % [facility] Comment: Test Performed at: [employer] [facility] ??[phone] NAVID SCOTT MD Blood BLOOD SPECIMEN / Unknown 03/18/2018 7:35 AM CDT 03/18/2018 7:35 AM CDT Perez Cervantes MD LAB - HEMATOLOGY JUVENTINO SAMAYOA Performing Organization Address City/[facility] Co de Phone Number [facility] [address] [place] [address] * (ABNORMAL) COMPREHENSIVE METABOLIC PANEL (03/18/2018 7:35 AM CDT) Glucose 88 65 - 99 mg/dL [facility] Comment: ? Fasting reference interval BUN 16 7 - 25 mg/dL [facility] Creatinine 0.74 0.50 - 1.05 mg/dL [facility] Comment: For patients >49 years of age, the reference limit for Creatinine is approximately 13% higher for people identified as -Cameroonian. eGFR by MDRD 91 > OR = 60 mL/min/1 .73m2 [facility] eGFR by MDRD 106 > OR = 60 mL/min/1 .73m2 [facility] BUN/Creatinine Ratio NOT APPLICABLE 6 - 22 (calc) [facility] Sodium 139 135 - 146 mmol/L [facility] Potassium 4.4 3.5 - 5.3 mmol/L [facility] Chloride 104 98 - 110 mmol/L [facility] CO2 25 20 - 31 mmol/L [facility] Calcium 9.3 8.6 - 10.4 mg/dL [facility] Protein Total 6.9 6.1 - 8.1 g/dL [facility] Albumin 3.9 3.6 - 5.1 g/dL [facility] Globulin Total 3.0 1.9 - 3.7 g/dL (calc) [facility] Albumin/Globulin Ratio 1.3 1.0 - 2.5 (calc) [facility] Bilirubin Total 0.5 0.2 - 1.2 mg/dL [facility] Alkaline Phosphatase 130 33 - 130 U/L [facility] AST 26 10 - 35 U/L [facility] ALT 37(H) 6 - 29 U/L [facility] Comment: Test Performed at: [employer] [facility] ??[phone] ASPEN HOLLINGSWORTH DO,MPH Blood BLOOD SPECIMEN / Unknown 03/18/2018 7:35 AM CDT 03/18/2018 7:35 AM CDT Perez Cervantes MD LAB - CHEMISTRY GERA DAVID Performing Organization Address [facility] Co de Phone Number [facility] [address] [place] [address] documented in this encounter Visit Diagnoses Diagnosis Encounter for therapeutic drug monitoring- Primary Encounter for long-term (current) use of medications Encounter for long-term (current) use of other medications Polyarthritis Unspecified polyarthropathy or polyarthritis, site unspecified Primary osteoarthritis involving multiple joints documented in this encounter Care Teams Powertrain Design Engineer Relationship Specialty Start Date End Date Toney Munroe MD PCP - General Family Medicine 02/10/16 07/28/18 documented as of this encounter
--- OUTSIDE RECORDS SUMMARY | 2024-11-13 17:08 | XMS_ITS | Encounter Summary ---
Author Organization [facility] Address [address] [facility] [place] [address] Care Team Providers Care Warp Trucker Name Role Phone Toney Munroe MD Primary Care Provider [phone] Encounter Details Date Type Department Care Team (Latest Contact Info) Description 08/03/2016 Hospital Outpatient Visit Historic [facility] [address] [place] [phone] Perez Cervantes MD [address] [place] [address] 2L [place] [address] Discharge Disposition: Home or Self Care Social [...] Visit [facility]ology [address] [place] [address], [place] [phone] Perez Cervantes MD [address] [place] [address] 2L [place] [phone] documented as of this encounter Procedures Procedure Name Priority Date/Time Associated Diagnosis Comments XR CHEST 2VW Routine 08/03/2016 2:14 PM CDT documented in this encounter Results * XR CHEST 2VW (08/03/2016 2:14 PM CDT) Anatomical Region Laterality Modality Chest Other Impressions 08/03/2016 4:30 PM CDT IMPRESSION: No acute pulmonary process. Dictated by Rashard Brewster MD (Resident). Dr. GAL Osorio M.D. have personally reviewed and interpreted this examination/study. This report was electronically signed by GAL BELTRE M.D. ??on 08/03/2016 4:30 PM . Narrative 08/03/2016 4:30 PM CDT EXAMINATION: XR CHEST PA AND LATERAL HISTORY: Monitoring Biologic COMPARISON: Comparison is made with a study from 08/06/2015. FINDINGS: There is no focal consolidation, pleural effusion, or pneumothorax. The cardiomediastinal silhouette is normal. The visible bony thorax is intact. There are mild degenerative changes in the thoracic spine. Procedure Note Gal Beltre MD - 02/12/2018 EXAMINATION: XR CHEST PA AND LATERAL HISTORY: Monitoring Biologic COMPARISON: Comparison is made with a study from 08/06/2015. FINDINGS: There is no focal consolidation, pleural effusion, or pneumothorax. Thecardiomediastinal silhouette is normal. The visible bony thorax is intact.There are mild degenerative changes in the thoracic spine. IMPRESSION IMPRESSION: No acute pulmonary process. Dictated by Rashard Brewster MD (Resident). Dr. GAL Osorio M.D. have personally reviewed and interpreted thisexamination/study. This report was electronically signed by GAL BELTRE M.D. on 08/03/20164:30 PM . Perez Cervantes MD DIAGNOSTIC IMAGING O RDERABLES documented in this encounter Visit Diagnoses Diagnosis Polyarthritis Unspecified polyarthropathy or polyarthritis, site unspecified Encounter for therapeutic drug level monitoring Encounter for therapeutic drug monitoring documented in this encounter Care Teams Warp Trucker Relationship Specialty Start Date End Date Toney Munroe MD PCP - General Family Medicine 02/10/16 07/28/18 documented as of this encounter
--- OUTSIDE RECORDS SUMMARY | 2024-11-13 17:08 | XMS_ITS | Encounter Summary ---
Author Organization [facility] Address [address] [facility] [place] [address] Care Team Providers Care Watch Inspector Name Role Phone Toney Munroe MD Primary Care Provider Encounter Details Date Type Department Care Team (Late Contact Info) Description 06/10/2018 Orders Only [facility] [place] [address] Katina Blankenship, RN Encounter for therapeutic drug monitoring; Encounter for long-term (current) use of medications; [...] Description 03/27/2025 1:00 PM CDT Office Visit [facility] [address] [place] [address], [facility] [place] [phone] Perez Cervantes MD [address] [place] [address] [place] [phone] documented as of this encounter Visit Diagnoses Diagnosis Encounter for therapeutic drug monitoring Encounter for long-term (current) use of medications Encounter for long-term (current) use of other medications Polyarthritis Unspecified polyarthropathy or polyarthritis, site unspecified Primary osteoarthritis involving multiple joints documented in this encounter Care Teams Watch Inspector Relationship Specialty Start Date End Date Toney Munroe MD PCP - General Family Medicine 02/10/16 07/28/18 documented as of this encounter
--- OUTSIDE RECORDS SUMMARY | 2024-11-13 17:08 | XMS_ITS | Encounter Summary ---
Author Organization [facility] Address [address] [facility] [place] [address] Care Team Providers Care Mortgage Loan Officer Name Role Phone Jaspreet Pearl MD Primary Care Provider + Reason for Visit * Reason Onset Date Comments Medication Prior Auth Request 02/15/2020 en brel approval Encounter Details Date Type Department Care Team (Late st Contact Info) Description 02/15/2020 Telephone [facility] [address] [place] [address] Perez Cervantes MD [address] [place] [phone] Medication Prior Auth Request (enbrel approval) Social History Tobacco Use Types Packs/Day [...] encounter Miscellaneous Notes * Telephone Encounter - Lory Collier LPN - 02/15/2020 2:47 PM CDT Received fax confirmation from [employer]/ [facility] approving Enbrel 50mg/mL syringes, up to 4 syringes per 28 days. Effective 01/23/2020 - 01/22/2021. ID #: [id number] Case number: [id number] polyarthritis Meds currently taking: Enbrel (12/2013), MTX (02/2013), Nabumetone (10/2015) Tried/failed meds: Prednisone (10/2012-12/2012), Tramadol (8026-5989), Meloxicam (10/2012- 12/2012),Tolmentin (11/2012- 04/2013), Naproxen (10/2015-04/2016). documented in this encounter Plan of Treatment Upcoming Encounters Date Type Department Care Team (Late st Contact Info) Description 03/27/2025 1:00 PM CDT Office Visit [facility] - Rheumatology [address] [place] [address], [place] [phone] Perez Cervantes MD [address] [place] [address] [place] [address] documented as of this encounter Visit Diagnoses Not on filedocumented in this encounter Care Teams Mortgage Loan Officer Relationship Specialty Start Date End Date Jaspreet Pearl MD PCP - General 08/08/18 03/26/24 documented as of this encounter
--- OUTSIDE RECORDS SUMMARY | 2024-11-13 17:08 | XMS_ITS | Encounter Summary ---
Author Organization [facility] Address [address] [facility] [place] [address] Care Team Providers Care Traveling Phlebotomist Name Role Phone Jaspreet Pearl MD Primary Care Provider + Encounter Details Date Type Department Care Team (Late Contact Info) Description 10/21/2018 Orders Only [facility] [address] [place] [address] Perez Cervantes MD [address] [place] [address] 2L [place] [address] Encounter for therapeutic drug monitoring; Polyarthritis Social History Tobacco Use Types Packs/Day Years Used Date Smoking Tobacco: Never Smokeless Tobacco: Never Sex and Gender Information Value Date Recorded Sex Assigned at Not on file Gender Identity Not on file Sexual Orientation Not on file documented as of this encounter Plan of Treatment Upcoming Encounters Date Type Department Care Team (Late Contact Info) Description 03/27/2025 1:00 PM CDT Office Visit [facility] - Rhe[facility]ology [address] [place] [address], [facility] [place] [phone] Perez Cervantes MD [address] [place] [address] 2L [place] [phone] documented as of this encounter Visit Diagnoses Diagnosis Encounter for therapeutic drug monitoring Polyarthritis Unspecified polyarthropathy or polyarthritis, site unspecified documented in this encounter Care Teams Traveling Phlebotomist Relationship Specialty Start Date End Date Jaspreet Pearl MD PCP - General 08/08/18 03/26/24 documented as of this encounter
--- OUTSIDE RECORDS SUMMARY | 2024-11-13 17:08 | XMS_ITS | Encounter Summary ---
Author Organization [facility] Address [address] [facility] [place] [address] Care Team Providers Care Farm Management Adviser Name Role Phone Jaspreet Pearl MD Primary Care Provider + Encounter Details Date Type Department Care Team (Late st Contact Info) Description 08/12/2018 Orders Only [facility] [address] [place] [address] Perez Cervantes MD [address] [place] [address] 2L [place] [address] Social History Tobacco Use Types [...] Office Visit [facility] [address] [place] [address], [place] [phone] Perez Cervantes MD [address] [place] [address] 2L [place] [phone] documented as of this encounter Procedures Procedure Name Priority Date/Time Associated Diagnosis Comments CULTURE URINE REFLEXED I 08/12/2018 7:35 AM CDT documented in this encounter Results * CULTURE URINE REFLEXED I (08/12/2018 7:35 AM CDT) Reflexive Urine Culture NO CULTURE INDICATED [facility] Comment: REPORT COMMENT: FASTING:YES Test Performed at: [facility] [address] [place], [place] ??[phone] ASPEN HOLLINGSWORTH DO,MPH 08/12/2018 7:35 AM CDT 08/12/2018 7:36 AM CDT Perez Cervantes MD LAB - MICROBIOLOGY O RDERABLES [facility] [address] [place] [address] documented in this encounter Visit Diagnoses Not on filedocumented in this encounter Care Teams Farm Management Adviser Relationship Specialty Start Date End Date Jaspreet Pearl MD PCP - General 08/08/18 03/26/24 documented as of this encounter
--- OUTSIDE RECORDS SUMMARY | 2024-11-13 17:08 | XMS_ITS | Encounter Summary ---
Author Organization [facility] Address [address] [facility] [place] [address] Care Team Providers Care Tool And Equipment Rental Clerk Name Role Phone Jaspreet Pearl MD Primary Care Provider + Reason for Visit * Reason Comments Refill Request Encounter Details Date Type Department Care Team (Late st Contact Info) Description 02/26/2020 Refill [facility] [address] [place] [address] Perez Cervantes MD [address] [place] [phone] Refill Request Social History Tobacco Use Types [...] * Telephone Encounter - Tayla Alston - 02/26/2020 12:05 PM CDT Refill Request Hans Pascual NICK 11.28.19 NOV 06.04.20 Allergies: Allergies Allergen Reactions ??? Levaquin [Levofloxacin] Nausea and/or Vomiting and Other hallucinations Pended Medication Order: Requested Prescriptions Pending Prescriptions Disp Refills ??? folic acid (FOLVITE) 1 MG tablet [Pharmacy Med Name: FOLIC ACID 1 MG TABLET] 30 tablet 11 Sig: TAKE 1 TABLET BY MOUTH DAILY documented in this encounter Plan of Treatment Upcoming Encounters Date Type Department Care Team (Late st Contact Info) Description 03/27/2025 1:00 PM CDT Office Visit [facility] - Rheumatology [address] [place] [address], [place] [address] Perez Cervantes MD [address] [place] [address] [place] [address] documented as of this encounter Visit Diagnoses Not on filedocumented in this encounter Care Teams Tool And Equipment Rental Clerk Relationship Specialty Start Date End Date Jaspreet Pearl MD PCP - General 08/08/18 03/26/24 documented as of this encounter
--- OUTSIDE RECORDS SUMMARY | 2024-11-13 17:08 | XMS_ITS | Encounter Summary ---
Author Organization [facility] Address [address] [facility] [place] [address] Care Team Providers Care Landcare Officer Name Role Phone Jaspreet Pearl MD Primary Care Provider + Reason for Visit * Reason Comments Pain Joint Encounter Details Date Type Department Care Team (Latest Contact Info) Description 08/08/2018 1:30 PM CDT Office Visit [facility] Rheumatology [address] [place] [address] Perez Cervantes MD [facility] [place] [address] Polyarthritis (Primary Dx); Encounter for therapeutic drug monitoring; Need for influenza vaccination Social History Tobacco Use Types Packs/Day Years Used Date Smoking Tobacco: Never Smokeless Tobacco: Never Sex and Gender Information Value Date Recorded Sex Assigned at Not on file Gender Identity Not on file Sexual Orientation Not on file documented as of this encounter Last Filed Vital Signs Vital Sign Reading Time Taken Comments Blood Pressure 110/70 08/08/2018 1:17 PM CDT Pulse 64 08/08/2018 1:17 PM CDT Temperature 36.4 ??C (97.6 ??F) 08/08/2018 1:17 PM CD T Respiratory Rate - - Oxygen Saturation - - Inhaled Oxygen Concentration - - Weight 76.7 kg (169 lb) 08/08/2018 1:17 PM CDT Height 171.5 cm (5' 7.5 ) 08/08/2018 1:17 PM CDT Body Mass Index 26.08 08/08/2018 1:17 PM CDT documented in this encounter Progress Notes * Perez Cervantes MD - 08/08/2018 2:10 PM CDT (Prob #1) Polyarthritis (Abs Negative) (Prob #2) OA Hands (Labs) CBC (12.6/38.06/5600/196,000); ESR 13; CRP 0.41; UA WNL; Recent Labs Component Name 06/01/18 0849 03/18/18 0735 01/07/18 0744 SODIUM 139 139 - POTASSIUM 4.1 4.4 - CHLORIDE 103 104 - CO2 25 25 28 BUN 14 16 16 CREATININE 0.82 0.74 0.82 GLUCOSE 90 88 - CALCIUM 9.7 9.3 9.5 ALBUMIN 4.5 3.9 - ALKPHOS 96 130 100 ALT 16 37* 22 AST 19 26 24 TBIL 0.4 0.5 - TPROT 7.6 6.9 - EGFR 81 91 - (Subj) Patient remains on 50 mg Enbrel SQ/week, 20 mg MTX/week, 1 mg FA/d, and 1 g Nabumetone bid+ other meds. Patient is due for CXR/Quant Gold. 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 Sicca complaints stable. No new rashes, mucosal ulcers, but infection in dental implant. No systemic complaints. Saw PMD for URIs in February/March with Strep/ Allergic Bronchitis. Held Enbrel/MTX occasionally. Rest of ROS negative. Past/Social/Family History reviewed. (Obj) BP 110/70 Pulse 64 Temp 97.6 ??F (36.4 ??C) Ht 5' 7.5 (1.715 m) Wt 169 lb (76.7 kg) BMI 26.08 kg/m2 (Skin) No abnormal eruptions/rashes; No elbow lesions today. (HEENT) No mucosal ulcers; Moist membranes. No parotid fullness; (Neck) No adenopathy/thyromegaly; (Back) No CVA/LS/SI tenderness; (General) Unremarkable (Extrem) HNs DIPs/BNs 5th PIPs/LONG-TERM prominence; 1-4th MCPs S1T0; All other joints show no synovitis except MTPs R S1T1; LS0T1; MS = bilat (Assess) Mild MTPs swelling. Overall stable (Plan) Continue same meds. Labs now and emphasized q 6 weeks. CXR/Quant Gold now to monitor biologic. FU with PMD for possible depression. Advise if any change in parameters. RTO in 4 months. Preez Cervantes MD, FACP, FAAP, MACR Elementary Ell Teacher and Pediatric Rheumatology Professor of Internal Medicine,Pediatrics, and Molecular Immunology [facility] documented in this encounter Plan of Treatment Upcoming Encounters Date Type Department Care Team (Late st Contact Info) Description 03/27/2025 1:00 PM CDT Office Visit [facility] Rhe[facility]ology [address] [place] [address], [facility] [place] [address] Perez Cervantes MD [address] [place] [address] [place] [address] documented as of this encounter Procedures Procedure Name Priority Date/Time Associated Diagnosis Comments QUANTIFERON TB-GOLD Routine 08/12/2018 7 :44 AM CDT Polyarthritis Encounter for therapeutic drug monitoring URINALYSIS W/MICROSCOPIC REFLEX TO CULTURE Routine 08/12/2018 7:35 AM CDT Polyarthritis Encounter for therapeutic drug monitoring C-REACTIVE PROTEIN Routine 08/12/2018 7: 35 AM CDT Polyarthritis Encounter for therapeutic drug monitoring ERYTHROCYTE SEDIMENTATION RATE Routine 08/12/2018 7:35 AM CDT Polyarthritis Encounter for therapeutic drug monitoring CBC W AUTO DIFFERENTIAL Routine 08/12/2018 7:35 AM CDT Polyarthritis Encounter for therapeutic drug monitoring COMPREHENSIVE METABOLIC PANEL Routine 08/12/2018 7:35 AM CDT Polyarthritis Encounter for therapeutic drug monitoring documented in this encounter Results * QUANTIFERON TB-GOLD (08/12/2018 7:44 AM CDT) Pathologist [facility] QuantiFERON TB Gold NEGATIVE NEGATIVE [facility] Comment: [...] IU/mL. For additional information, please refer to http://education.CarePayment/faq/QFT (This link is being provided for informational/ educational purposes only.) Test Performed at: [facility] [address] [place], [place] ??[phone] ASPEN HOLLINGSWORTH DO,MPH Blood BLOOD SPECIMEN / Unknown 08/12/2018 7:44 AM CDT 08/12/2018 7:38 AM CDT Perez Cervantes MD LAB - CHEMISTRY GERA DAVID [facility] [address] [place] [address] * URINALYSIS W/MICROSCOPIC REFLEX TO CULTURE (08/12/2018 7:35 AM CDT) Pathologist [facility] Color UA YELLOW YELLOW [facility] Appearance CLEAR CLEAR [facility] Specific [place] UA 1.007 1.001 - 1.035 [facility] pH UA 6.0 [...] NONE SEEN NONE SEEN /LPF [facility] Comment: REPORT COMMENT: FASTING:YES Test Performed at: [facility] [address] [place], [place] ??[address] ASPEN HOLLINGSWORTH DO,MPH Urine URINE SPECIMEN OBTAINED BY CLEAN CATCH PROCEDURE / Unknown 08/12/2018 7:35 AM CDT 08/12/2018 7:36 AM CDT Perez Cervantes MD LAB - URINALYSIS ORD ERABLES Performing Organization Address [facility] [place] [address] * ERYTHROCYTE SEDIMENTATION RATE (08/12/2018 7:35 AM CDT) Erythrocyte Sedimentation Rate Westergren 16 < OR = 30 mm/h [facility] Comment: REPORT COMMENT: FASTING:YES Test Performed at: [facility] ??[phone] NAVID SCOTT MD Blood BLOOD SPECIMEN / Unknown 08/12/2018 7:35 AM CDT 08/12/2018 7:36 AM CDT Perez Cervantes MD LAB - HEMATOLOGY ORD ERABLES Performing Organization Address [facility] Co de Phone Number [address] [place] [address] [address] * COMPREHENSIVE METABOLIC PANEL (08/12/2018 7:35 AM CDT) Glucose 86 65 - 99 mg/dL [facility] Comment: ? Fasting reference interval BUN 14 7 - 25 mg/dL [facility] Creatinine 0.71 0.50 - 1.05 mg/dL [facility] Comment: For patients >49 years of age, the reference limit for Creatinine is approximately 13% higher for people identified as -Macedonian. eGFR by MDRD 96 > OR = 60 mL/min/1 .73m2 [facility] eGFR by MDRD 111 > OR = 60 mL/min/1 .73m2 [facility] BUN/Creatinine Ratio NOT APPLICABLE 6 (calc) [facility] Sodium 138 135 - 146 mmol/L [facility] Potassium 3.8 3.5 - 5.3 mmol/L [facility] Chloride 103 98 - 110 mmol/L [facility] CO2 25 20 - 32 mmol/L [facility] Calcium 9.5 8.6 - 10.4 mg/dL [facility] Protein Total 7.5 6.1 - 8.1 g/dL [facility] Albumin 4.7 3.6 - 5.1 g/dL [facility] Globulin Total 2.8 1.9 - 3.7 g/dL (calc) [facility] Albumin/Globulin Ratio 1.7 1.0 - 2.5 (calc) [facility] Bilirubin Total 0.6 0.2 - 1.2 mg/dL [facility] Alkaline Phosphatase 89 33 - 130 U/L [facility] AST 20 10 - 35 U/L [facility] ALT 20 6 - 29 U/L [facility] Comment: REPORT COMMENT: FASTING:YES Test Performed at: [facility] [address] [place], [place] ??[phone] ASPEN HOLLINGSWORTH DO,MPH Blood BLOOD SPECIMEN / Unknown 08/12/2018 7:35 AM CDT 08/12/2018 7:36 AM CDT Perez Cervantes MD LAB - CHEMISTRY GERA DAVID Performing Organization Address [facility] Co de Phone Number [facility] [address] [place] [address] * C-REACTIVE PROTEIN (08/12/2018 7:35 AM CDT) C-Reactive Protein 2.4 <8.0 mg/L [facility] Comment: REPORT COMMENT: FASTING:YES Test Performed at: [employer] [place], [place] ??[address] ASPEN HOLLINGSWORTH DO,MPH Blood BLOOD SPECIMEN / Unknown 08/12/2018 7:35 AM CDT 08/12/2018 7:36 AM CDT Perez eCrvantes MD LAB - CHEMISTRY GERA DAVID Performing Organization Address [facility] Co de Phone Number [facility] [address] [place] [address] * CBC WITH DIFFERENTIAL (08/12/2018 7:35 AM CDT) White Blood Cell Count 5.2 3.8 - 10.8 Thousand/u L [facility] RBC 4.37 3.80 - 5.10 Million/uL [facility] Hemoglobin 13.1 11.7 - 15.5 g/dL [facility] Hematocrit 39.4 35.0 - 45.0 % [facility] MCV 90.2 80.0 - 100.0 fL [facility] MCH 30.0 27.0 - 33.0 pg [facility] MCHC 33.2 32.0 - 36.0 g/dL [facility] RDW 14.6 11.0 - 15.0 % [facility] Platelet Count 221 140 - 400 Thousand/u L [facility] MPV 10.7 7.5 - 12.5 fL [facility] Neutrophil Absolute 3338 1500 - 7800 cells/uL [facility] Lymphocytes Absolute 1295 850 - 3900 cells/uL [facility] Absolute Monocytes 478 200 - 950 cells/uL [facility] Eosinophils Absolute 78 15 - 500 cells/uL [facility] Basophils Absolute 10 0 - 200 cells/uL [facility] Granulocytes % 64.2 % [facility] Lymphocytes % 24.9 % [facility] Monocytes % 9.2 % [facility] Eosinophils % 1.5 % [facility] Basophils % 0.2 % [facility] Comment: REPORT COMMENT: FASTING:YES Test Performed at: [facility] [address] ??[phone] ASPEN HOLLINGSWORTH DO,MPH Blood BLOOD SPECIMEN / Unknown 08/12/2018 7:35 AM CDT 08/12/2018 7:36 AM CDT Perez Cervantes MD LAB - HEMATOLOGY ORD VERNONBLES Performing Organization Address City/State/[facility] Co de Phone Number [facility] [address] [place] [address] * XR CHEST 2VW (08/08/2018 3:19 PM CDT) Anatomical Region Laterality Modality Chest Radiographic Corin ging 08/08/2018 3:20 PM CDT Impressions 08/08/2018 4:24 PM CDT IMPRESSION: No acute pulmonary process. Dictated by Prosper Duenas MD (physical therapy resident). I, Dr. DINH TOLEDO MD have personally reviewed and interpreted this examination/study. This report was electronically signed by DINH TOLEDO MD ??on 08/08/2018 4:24 PM . Narrative 08/08/2018 4:24 PM CDT EXAMINATION: XR CHEST 2VW HISTORY: Monitoring Biologic COMPARISON: ??Comparison is made with a study from 08/02/2017 FINDINGS: The lungs are clear. There is no focal consolidation, pleural effusion, or pneumothorax. The cardiomediastinal silhouette is normal. Procedure Note Dinh Toledo MD - 08/08/2018 EXAMINATION: XR CHEST 2VW HISTORY: Monitoring Biologic COMPARISON: Comparison is made with a study from 08/02/2017 FINDINGS: The lungs are clear. There is no focal consolidation, pleural effusion,or pneumothorax. The cardiomediastinal silhouette is normal. IMPRESSION: No acute pulmonary process. Dictated by Prosper Duenas MD (physical therapy resident). I, Dr. DINH TOLEDO MD have personally reviewed and interpreted this examination/study. This report was electronically signed by DINH TOLEDO MD on08/08/2018 4:24 PM . Perez Cervantes MD DIAGNOSTIC IMAGING O RDERABLES documented in this encounter Visit Diagnoses Diagnosis Polyarthritis- Primary Unspecified polyarthropathy or polyarthritis, site unspecified Encounter for therapeutic drug monitoring Need for influenza vaccination Need for prophylactic vaccination and inoculation against influenza documented in this encounter Care Teams Landcare Officer Relationship Specialty Start Date End Date Jaspreet Pearl MD PCP - General 08/08/18 03/26/24 documented as of this encounter
--- OUTSIDE RECORDS SUMMARY | 2024-11-13 17:08 | XMS_ITS | Encounter Summary ---
Author Organization [facility] Health Address [address] [place] [address] Care Team Providers Care Any Commodity Buyer Name Role Phone Jaspreet Pearl MD Primary Care Provider + Reason for Visit * Reason Comments Follow-up Polyarthritis Encounter Details Date Type Department Care Team (Latest Contact Info) Description 11/28/2019 1:40 PM OFFICE ELECTRICIAN Office Visit [facility] [address] [place] [address] Perez Cervantes MD [address] [place] [address] Polyarthritis (Primary Dx); Encounter for [...] Sign Reading Time Taken Comments Blood Pressure 110/78 11/28/2019 1:33 PM OFFICE ELECTRICIAN Pulse 67 11/28/2019 1:33 PM OFFICE ELECTRICIAN Temperature 36.9 ??C (98.4 ??F) 11/28/2019 1:33 PM CS T Respiratory Rate - - Oxygen Saturation 98% 11/28/2019 1:33 PM OFFICE ELECTRICIAN Inhaled Oxygen Concentration - - Weight 76.7 kg (169 lb) 11/28/2019 1:33 PM OFFICE ELECTRICIAN Height 170.2 cm (5' 7 ) 11/28/2019 1:33 PM OFFICE ELECTRICIAN Body Mass Index 26.47 11/28/2019 1:33 PM OFFICE ELECTRICIAN documented in this encounter Progress Notes * Perez Cervantes MD - 11/28/2019 1:57 PM CST (Prob #1) Polyarthritis (Abs All negative) (Prob #2) OA Hands (Labs) Recent Labs Component Name 10/20/19 0738 09/22/19 0740 09/08/19 0934 06/06/19 0819 01/07/18 0744 10/22/17 0734 08/13/17 0734 WBC 4.2 3.6* 3.6* 4.7 - 4.4 4.3 3.7* RBC 4.27 4.45 4.12 4.16 - 4.14 4.33 4.31 HGB 13.0 13.6 12.5 12.6 - 12.5 13.1 13.0 HCT 39.7 41.7 38.4 38.6 - 37.8 40.0 39.4 MCV 93.0 93.7 93.2 92.8 - 91.3 92.4 91.4 MCHC 32.7 32.6 32.6 32.6 - 33.1 32.8 33.1 PLTCOUNT 234 215 219 218 - - - - NEUTPCT - - - - - 55.7 60.3 65.4 LYMPHPCT 34.1 - 34.8 30.3 - - - - EOSINPCT 1.4 - 1.7 2.1 - - - - BASOPHILPCT 0.7 - 0.6 0.2 - - - - NEUTABS - - - - - 2,451 2,593 2,420 - = values in this interval not displayed. ESR 11; CR)P 0.29; UA WNL; Recent Labs Component Name 10/20/19 0738 09/22/19 0740 09/08/19 0934 SODIUM 141 139 141 POTASSIUM 4.4 3.9 4.0 CHLORIDE 103 103 104 CO2 30 24 28 BUN 19 17 18 CREATININE 0.81 0.84 0.79 GLUCOSE 80 77 80 CALCIUM 9.7 9.9 9.6 ALT 21 20 20 ALKPHOS 101 100 94 AST 20 21 18 TBIL 0.5 0.5 0.5 TPROT 7.0 8.1 7.3 EGFR 81 78 84 EGFRAFR 94 90 97 ALBUMIN 4.4 4.9 4.5 CXR/PPD Negative in May (Subj) Patient remains on 50 mg Enbrel SQ/week, 20 mg MTX/sweek, 1 mg FA/d, and 1 g Nabumetone bid+other meds. Doing well. Minimal AM stiffness. No skin rashes, mucosal ulcers, or systemic complaints. Saw PMD for sinus infection after Thanksgiving. Follows with PMD for depression; Sicca complaintsimproved. No problems with dental implants. Rest of ROS negative. Past/Social/Family History reviewed. (Obj) BP 110/78 Pulse 67 Temp 98.4 ??F (36.9 ??C) (Oral) Ht 5' 7 (1.702 m) Wt 169 lb (76.7 kg) SpO2 98% BMI 26.47 kg/m2 (Skin) No rashes or eruptions (HEENT) No mucosal ulcers. Membranes moist. No parotid fullness; (neck) No adenopathy/thyromegaly (Back) No LS/SI tenderness; (General) Unremarkable (Extrem) HNs DIPs/Bns 5th PIPs/CUSTODIAL prominence; 1-3rd MCPs sfT0; 2-4th MTPs SfT1; No other synovitis/enthesitis. MS= bilat (Assess) Clinically stable (Plan) Continue same meds with labs q 8 weeks and yearly TB screening. RTO in 6 months. Perez Cervantes MD, FACP, FAAP, MACR Civil Drafting Technician and Pediatric Rheumatology Professor of Internal Medicine,Pediatrics, and Molecular Immunology [facility] CE ELECTRICIAN documented in this encounter Plan of Treatment Upcoming Encounters Date Type Department Care Team (Late st Contact Info) Description 03/27/2025 1:00 PM CDT Office Visit [facility] - Rheumatology [address] [place] [address], [facility] [place] [address] Perez Cervantes MD [address] [place] [address] [place] [address] documented as of this encounter Visit Diagnoses Diagnosis Polyarthritis- Primary Unspecified polyarthropathy or polyarthritis, site unspecified Encounter for therapeutic drug monitoring documented in this encounter Care Teams Any Commodity Buyer Relationship Specialty Start Date End Date Jaspreet Pearl MD PCP - General 08/08/18 03/26/24 documented as of this encounter
--- OUTSIDE RECORDS SUMMARY | 2024-11-13 17:08 | XMS_ITS | Encounter Summary ---
Author Organization [facility] Address [address] [facility] [place] [address] Care Team Providers Care Weight Count Operator Name Role Phone Jaspreet Pearl MD Primary Care Provider + Encounter Details Date Type Department Care Team (Late Contact Info) Description 09/08/2019 Orders Only [facility] [address] [place] [address] Perez Cervantes MD [address] [place] [address] [address] [place] [address] Social History Tobacco Use Types [...] Office Visit [facility] - Rheumatology [address] [place] [address], [place] [phone] Perez Cervantes MD [address] [place] [address] [address] [place] [phone] documented as of this encounter Procedures Procedure Name Priority Date/Time Associated Diagnosis Comments CULTURE URINE REFLEXED I 09/22/2019 7:40 AM REVENUE ACCOUNTING MANAGER URINALYSIS W/MICROSCOPIC REFLEX TO CULTURE 09/22/2019 7:40 AM REVENUE ACCOUNTING MANAGER C-REACTIVE PROTEIN 09/22/2019 7: 40 AM REVENUE ACCOUNTING MANAGER ERYTHROCYTE SEDIMENTATION RATE 09/22/2019 7:40 AM REVENUE ACCOUNTING MANAGER CBC W/O DIFFERENTIAL 09/22/2019 7:40 AM REVENUE ACCOUNTING MANAGER COMPREHENSIVE METABOLIC PANEL 09/22/2019 7:40 AM REVENUE ACCOUNTING MANAGER CULTURE URINE REFLEXED I 09/08/2019 9:34 AM CDT URINALYSIS W/MICROSCOPIC REFLEX TO CULTURE 09/08/2019 9:34 AM CDT C-REACTIVE PROTEIN 09/08/2019 9: 34 AM CDT ERYTHROCYTE SEDIMENTATION RATE 09/08/2019 9:34 AM CDT CBC W AUTO DIFFERENTIAL 09/08/2019 9:34 AM CDT COMPREHENSIVE METABOLIC PANEL 09/08/2019 9:34 AM CDT documented in this encounter Results * CULTURE URINE REFLEXED I (09/22/2019 7:40 AM REVENUE ACCOUNTING MANAGER) Reflexive Urine Culture NO CULTURE INDICATED [facility] Comment: Test Performed at: [facility]ITAL[facility] [address] [place], [place] ??[phone] ASPEN HOLLINGSWORTH DO,MPH 09/22/2019 7:40 AM REVENUE ACCOUNTING MANAGER 09/22/2019 7:41 AM REVENUE ACCOUNTING MANAGER Perez Cervantes MD LAB - MICROBIOLOGY O RDERABLES [facility] [address] [place] [address] * C-REACTIVE PROTEIN (09/22/2019 7:40 AM REVENUE ACCOUNTING MANAGER) Pathologist [facility] [place] C-Reactive Protein 3.6 <8.0 mg/L [facility] Comment: REPORT COMMENT: FASTING:YES Test Performed at: [facility] [address] [place] [address] ??[phone] ASPEN HOLLINGSWORTH DO,MPH 09/22/2019 7:40 AM REVENUE ACCOUNTING MANAGER 09/22/2019 7:41 AM REVENUE ACCOUNTING MANAGER Perez Cervantes MD LAB - CHEMISTRY GERA DAVID [facility] [address] [place] [address] * COMPREHENSIVE METABOLIC PANEL (09/22/2019 7:40 AM REVENUE ACCOUNTING MANAGER) Pathologist [facility] Glucose 77 65 - 99 mg/dL [facility] Comment: ? Fasting reference interval BUN 17 7 - 25 mg/dL [facility] Creatinine 0.84 0.50 - 1.05 mg/dL [facility] Comment: For patients >49 years of age, the reference limit for Creatinine is approximately 13% higher for people identified as -Tristanian. eGFR by MDRD 78 > OR = 60 mL/min/1 .73m2 [facility] eGFR by MDRD 90 > OR = 60 mL/min/1 .73m2 [facility] BUN/Creatinine Ratio NOT APPLICABLE 6 - 22 (calc) [facility] Sodium 139 135 - 146 mmol/L [facility] Potassium 3.9 3.5 - 5.3 mmol/L [facility] Chloride 103 98 - 110 mmol/L [facility] CO2 24 20 - 32 mmol/L [facility] Calcium 9.9 8.6 - 10.4 mg/dL [facility] Protein Total 8.1 6.1 - 8.1 g/dL [facility] Albumin 4.9 3.6 - 5.1 g/dL [facility] Globulin Total 3.2 1.9 - 3.7 g/dL (calc) [facility] Albumin/Globulin Ratio 1.5 1.0 - 2.5 (calc) [facility] Bilirubin Total 0.5 0.2 - 1.2 mg/dL [facility] Alkaline Phosphatase 100 33 - 130 U/L [facility] AST 21 10 - 35 U/L [facility] ALT 20 6 - 29 U/L [facility] Comment: Test Performed at: [facility] [address] [place] ??[phone] ASPEN HOLLINGSWORTH DO,MPH 09/22/2019 7:40 AM REVENUE ACCOUNTING MANAGER 09/22/2019 7:41 AM REVENUE ACCOUNTING MANAGER Perez Cervantes MD LAB - CHEMISTRY ORDE JOANN Performing Organization Address [facility] Co de Phone Number [address] [address] * URINALYSIS W/MICROSCOPIC REFLEX TO CULTURE (09/22/2019 7:40 AM REVENUE ACCOUNTING MANAGER) Color UA YELLOW YELLOW [facility] Appearance CLEAR CLEAR [facility] Specific [place] UA 1.005 1.001 - 1.035 [facility] pH UA 7.0 [...] SEEN /LPF [facility] Comment: Test Performed at: [facility] [facility] [address] [place], [place] ??[address] ASPEN HOLLINGSWORTH DO,MPH Reflexive Urine Culture NO CULTURE INDICATED [facility] Comment: REPORT COMMENT: FASTING:YES Test Performed at: [facility] [place] [address] [place], [place] ??[address] ASPEN HOLLINGSWORTH DO,MPH 09/22/2019 7:40 AM REVENUE ACCOUNTING MANAGER 09/22/2019 7:41 AM REVENUE ACCOUNTING MANAGER Perez Cervantes MD LAB - URINALYSIS ORD DANITA Performing Organization Address [facility]/ZIP Co de Phone Number [place] [phone] [place] [address] * ERYTHROCYTE SEDIMENTATION RATE (09/22/2019 7:40 AM REVENUE ACCOUNTING MANAGER) Erythrocyte Sedimentation Rate Westergren 19 < OR = 30 mm/h [facility] Comment: Test Performed at: [facility]-[address] ??[phone] NAVID SCOTT MD 09/22/2019 7:40 AM REVENUE ACCOUNTING MANAGER 09/22/2019 7:41 AM REVENUE ACCOUNTING MANAGER Perez Cervantes MD LAB - HEMATOLOGY ORD ERABLES Performing Organization Address [facility] de Phone Number [place] [phone] * (ABNORMAL) CBC W/O DIFFERENTIAL (09/22/2019 7:40 AM REVENUE ACCOUNTING MANAGER) White Blood Cell Count 3.6(L) 3.8 - [...] 12.5 fL [facility] Comment: Test Performed at: [facility] ??[phone] NAVID SCOTT MD 09/22/2019 7:40 AM REVENUE ACCOUNTING MANAGER 09/22/2019 7:41 AM REVENUE ACCOUNTING MANAGER Perez Cervantes MD LAB - HEMATOLOGY ORD ERABLES Performing Organization Address [facility] de Phone Number [address] [address] * CULTURE URINE REFLEXED I (09/08/2019 9:34 AM CDT) Pathologist [facility] [place] Reflexive Urine Culture NO CULTURE INDICATED [facility] Comment: Test Performed at: [facility]ITALEXDe[facility] [address] [place] ??[phone] ASPEN HOLLINGSWORTH DO,MPH 09/08/2019 9:34 AM CDT 09/08/2019 9:35 AM CDT Perez Cervantes MD LAB - MICROBIOLOGY O RDERABLES Performing Organization Address [facility] Co de Phone Number [facility] [address] [place] [address] * C-REACTIVE PROTEIN (09/08/2019 9:34 AM CDT) C-Reactive Protein 2.8 <8.0 mg/L [facility] Comment: REPORT COMMENT: FASTING:YES Test Performed at: [facility] [address] [place] ??[phone] ASPEN HOLLINGSWORTH DO,MPH 09/08/2019 9:34 AM CDT 09/08/2019 9:35 AM CDT Perez Cervantes MD LAB - CHEMISTRY GERA DAVID [facility] [address] [place] [address] * COMPREHENSIVE METABOLIC PANEL (09/08/2019 9:34 AM CDT) Glucose 80 65 - 99 mg/dL [facility] Comment: ? Fasting reference interval BUN 18 7 - 25 mg/dL [facility] Creatinine 0.79 0.50 - 1.05 mg/dL [facility] Comment: For patients >49 years of age, the reference limit for Creatinine is approximately 13% higher for people identified as -Tristanian. eGFR by MDRD 84 > OR = 60 mL/min/1 .73m2 [facility] eGFR by MDRD 97 > OR = [...] 7.3 6.1 - 8.1 g/dL [facility] Albumin 4.5 3.6 - 5.1 g/dL [facility] Globulin Total 2.8 1.9 - 3.7 g/dL (calc) [facility] Albumin/Globulin Ratio 1.6 1.0 - 2.5 (calc) [facility] Bilirubin Total 0.5 0.2 - 1.2 mg/dL [facility] Alkaline Phosphatase 94 33 - 130 U/L [facility] AST 18 10 - 35 U/L [facility] ALT 20 6 - 29 U/L [facility] Comment: Test Performed at: [facility] [address] [place], [place] ??[phone] ASPEN HOLLINGSWORTH DO,MPH 09/08/2019 9:34 AM CDT 09/08/2019 9:35 AM CDT Perez Cervantes MD LAB - CHEMISTRY ORDE RABLES Performing Organization Address [facility] de Phone Number [facility] [phone] [place] [address] * URINALYSIS W/MICROSCOPIC REFLEX TO CULTURE (09/08/2019 9:34 AM CDT) Color UA YELLOW YELLOW [facility] Appearance CLEAR CLEAR [facility] Specific [place] UA 1.020 1.001 - 1.035 [facility] pH UA 6.5 [...] SEEN /LPF [facility] Comment: Test Performed at: [facility] [facility] [address] [place], [place] ??[phone] ASPEN HOLLINGSWORTH DO,MPH Reflexive Urine Culture NO CULTURE INDICATED [facility] Comment: REPORT COMMENT: FASTING:YES Test Performed at: [facility] [place] ??[address] ASPEN HOLLINGSWORTH DO,MPH 09/08/2019 9:34 AM CDT 09/08/2019 9:35 AM CDT Perez Cervantes MD LAB - URINALYSIS ORD ERABLES Performing Organization Address [facility] de Phone Number [facility] [address] [place] [address] * ERYTHROCYTE SEDIMENTATION RATE (09/08/2019 9:34 AM CDT) Erythrocyte Sedimentation Rate Westergren 16 < OR = 30 mm/h [facility] Comment: Test Performed at: [employer] ??[phone] NAVID SCOTT MD 09/08/2019 9:34 AM CDT 09/08/2019 9:35 AM CDT Perez Cervantes MD LAB - HEMATOLOGY ORD ERABLES Performing Organization Address [facility] de Phone Number [facility] [address] [place] [phone] * (ABNORMAL) CBC WITH DIFFERENTIAL (09/08/2019 9:34 AM CDT) White Blood Cell Count 3.6(L) 3.8 - 10.8 Thousand/ uL [facility] RBC 4.12 3.80 - 5.10 Million/u L [facility] Hemoglobin 12.5 11.7 - 15.5 g/dL [facility] Hematocrit 38.4 35.0 - 45.0 % [facility] MCV 93.2 80.0 - 100.0 fL [facility] MCH 30.3 27.0 - 33.0 pg [facility] MCHC 32.6 32.0 - 36.0 g/dL [facility] RDW 14.8 11.0 - 15.0 % [facility] Platelet Count 219 140 - 400 Thousand/ uL [facility] MPV 10.6 7.5 - 12.5 fL [facility] Neutrophil Absolute 1980 1500 - 7800 cells/uL [facility] Lymphocytes Absolute 1253 850 - 3900 cells/uL [facility] Absolute Monocytes 284 200 - 950 cells/uL [facility] Eosinophils Absolute 61 15 - 500 cells/uL [facility] Basophils Absolute 22 0 - 200 cells/uL [facility] Granulocytes % 55 % [facility] Lymphocytes % 34.8 % [facility] Monocytes % 7.9 % [facility] Eosinophils % 1.7 % [facility] Basophils % 0.6 % [facility] Comment: Test Performed at: [facility] ??[phone] NAVID SCOTT MD 09/08/2019 9:34 AM CDT 09/08/2019 9:35 AM CDT Perez Cervantes MD LAB - HEMATOLOGY ORD ERABLES Performing Organization Address [facility] Co de Phone Number [facility] [address] [place] [address] documented in this encounter Visit Diagnoses Not on filedocumented in this encounter Care Teams Weight Count Operator Relationship Specialty Start Date End Date Jaspreet Pearl MD PCP - General 08/08/18 03/26/24 documented as of this encounter
--- OUTSIDE RECORDS SUMMARY | 2024-11-13 17:08 | XMS_ITS | Encounter Summary ---
Author Organization [facility] Address [address] [place] [address] Care Team Providers Care Supervisor [employer] Name Role Phone Jaspreet Pearl MD Primary Care Provider + Encounter Details Date Type Department Care Team (Late Contact Info) Description 04/14/2019 Orders Only [facility] [address] [place] [address] Perez Cervantes MD [address] [place] [address] [address] [place] [address] Polyarthritis; Encounter for therapeutic drug monitoring Social [...] Office Visit [facility] - Rheumatology [address] [place] [address], [place] [phone] Perez Cervantes MD [address] [place] [address] [address] [place] [phone] documented as of this encounter Procedures Procedure Name Priority Date/Time Associated Diagnosis Comments CULTURE URINE REFLEXED 9 10:43 AM CDT URINALYSIS W/MICROSCOPIC REFLEX TO CULTURE Routine 04/14/2019 10:43 AM CDT Polyarthritis Encounter for therapeutic drug monitoring C-REACTIVE PROTEIN Routine 04/14/2019 10 :43 AM CDT Polyarthritis Encounter for therapeutic drug monitoring CULTURE URINE 04/14/2019 10:43 AM CDT ERYTHROCYTE SEDIMENTATION RATE Routine 04/14/2019 10:43 AM CDT Polyarthritis Encounter for therapeutic drug monitoring CBC W AUTO DIFFERENTIAL Routine 04/14/2019 10:43 AM CDT Polyarthritis Encounter for therapeutic drug monitoring COMPREHENSIVE METABOLIC PANEL Routine 04/14/2019 10:43 AM CDT Polyarthritis Encounter for therapeutic drug monitoring documented in this encounter Results * CULTURE URINE (04/14/2019 10:43 AM CDT) Culture [facility] Comment: ??CULTURE, URINE, ROUTINE ?MICRO NUMBER: ?[id number] ??TEST STATUS: ? FINAL ??SPECIMEN SOURCE: ?? URINE ??SPECIMEN QUALITY: ??ADEQUATE ??RESULT: ?Multiple organisms present, each less than 10,000 ? CFU/mL. These organisms, commonly found on ? external and internal genitalia, are considered ? to be colonizers. No further testing performed. REPORT COMMENT: FASTING:YES Test Performed at: [facility] [address] [place] ??[phone] ASPEN HOLLINGSWORTH DO,MPH 04/14/2019 10:4 3 AM CDT 04/14/2019 10:45 AM CDT Perez Cervantes MD LAB - MICROBIOLOGY O RDDANITA Performing Organization Address [facility] Co de Phone Number [facility] [phone] [place] [address] * CULTURE URINE REFLEXED (04/14/2019 10:43 AM CDT) Reflexive Urine Culture CULTURE INDICATED - RESULTS TO FOLLOW [facility] Comment: Test Performed at: [facility] [address] [place] ??[phone] ASPEN HOLLINGSWORTH DO,MPH 04/14/2019 10:4 3 AM CDT 04/14/2019 10:45 AM CDT Perez Cervantes MD LAB - MICROBIOLOGY O JOEY Performing Organization Address [facility] [place] [address] * (ABNORMAL) URINALYSIS W/MICROSCOPIC REFLEX TO CULTURE (04/14/2019 10:43 AM CDT) Color UA YELLOW YELLOW [facility] Appearance CLEAR CLEAR [facility] Specific [place] UA 1.008 1.001 - 1.035 [facility] pH UA 5.5 5.0 - 8.0 [facility] Glucose UA NEGATIVE NEGATIVE [facility] Bilirubin UA NEGATIVE NEGATIVE [facility] Ketone UA NEGATIVE NEGATIVE [facility] Blood UA NEGATIVE NEGATIVE [facility] Protein UA NEGATIVE NEGATIVE [facility] Nitrite NEGATIVE NEGATIVE [facility] Leukocyte Esterase 1+(A) NEGATIVE [facility] WBC UA 0-5 < OR = 5 /HPF [facility] RBC UA 3-10(A) < OR = 2 /HPF [facility] Epithelial Cell UA 0-5 < OR = 5 /HPF [facility] Bacteria UA NONE SEEN NONE SEEN /HPF [facility] Hyaline Casts NONE SEEN NONE SEEN /LPF [facility] Comment: REPORT COMMENT: FASTING:YES Test Performed at: [facility] [address] [place] ??[phone] ASPEN HOLLINGSWORTH DO,MPH Urine URINE SPECIMEN OBTAINED BY CLEAN CATCH PROCEDURE / Unknown 04/14/2019 10:43 AM CDT 04/14/2019 10:45 AM CDT Perez Cervantes MD LAB - URINALYSIS ORD ERABLES Performing Organization Address [facility] Co de Phone Number [facility] [address] [place] [address] * ERYTHROCYTE SEDIMENTATION RATE (04/14/2019 10:43 AM CDT) Erythrocyte Sedimentation Rate Westergren 17 < OR = 30 mm/h [facility] Comment: REPORT COMMENT: FASTING:YES Test Performed at: [facility] [address] [place] ??[phone] ASPEN HOLLINGSWORTH DO,MPH Blood BLOOD SPECIMEN / Unknown 04/14/2019 10:43 AM CDT 04/14/2019 10:45 AM CDT Perez Cervantes MD LAB - HEMATOLOGY ORD ERABLES Performing Organization Address [facility] Co de Phone Number [facility] [address] [place] [phone] * COMPREHENSIVE METABOLIC PANEL (04/14/2019 10:43 AM CDT) Glucose 81 65 - 99 mg/dL [facility] Comment: ? Fasting reference interval BUN 16 7 - 25 mg/dL [facility] Creatinine 0.81 0.50 - 1.05 mg/dL [facility] Comment: For patients >49 years of age, the reference limit for Creatinine is approximately 13% higher for people identified as -Bahraini. eGFR by MDRD 81 > OR = 60 mL/min/1 .73m2 [facility] eGFR by MDRD 94 > OR = 60 mL/min/1 .73m2 [facility] BUN/Creatinine Ratio NOT APPLICABLE 6 - 22 (calc) [facility] Sodium 140 135 - 146 mmol/L [facility] Potassium 4.6 3.5 - 5.3 mmol/L [facility] Chloride 102 98 - 110 mmol/L [facility] CO2 26 20 - 32 mmol/L [facility] Calcium 9.5 8.6 - 10.4 mg/dL [facility] Protein Total 7.6 6.1 - 8.1 g/dL [facility] Albumin 4.8 3.6 - 5.1 g/dL [facility] Globulin Total 2.8 1.9 - 3.7 g/dL (calc) [facility] Albumin/Globulin Ratio 1.7 1.0 - 2.5 (calc) [facility] Bilirubin Total 0.6 0.2 - 1.2 mg/dL [facility] Alkaline Phosphatase 100 33 - 130 U/L [facility] AST 23 10 - 35 U/L [facility] ALT 25 6 - 29 U/L [facility] Comment: REPORT COMMENT: FASTING:YES Test Performed at: [facility] [address] [place] ??[phone] ASPEN HOLLINGSWORTH DO,MPH Blood BLOOD SPECIMEN / Unknown 04/14/2019 10:43 AM CDT 04/14/2019 10:45 AM CDT Perez Cervantes MD LAB - CHEMISTRY GERA DAVID Performing Organization Address [facility] de Phone Number [facility] [phone] [place] [address] * C-REACTIVE PROTEIN (04/14/2019 10:43 AM CDT) [facility] C-Reactive Protein 3.1 <8.0 mg/L [facility] Comment: REPORT COMMENT: FASTING:YES Test Performed at: [facility] [address] [place] [address] ??[phone] ASPEN HOLLINGSWORTH DO,MPH Blood BLOOD SPECIMEN / Unknown 04/14/2019 10:43 AM CDT 04/14/2019 10:45 AM CDT Perez Cervantes MD LAB - CHEMISTRY GERA DAVID Performing Organization Address [facility] [place] [address] * (ABNORMAL) CBC WITH DIFFERENTIAL (04/14/2019 10:43 AM CDT) Pathologist [facility] White Blood Cell Count 5.0 3.8 - 10.8 Thousand/u L [facility] RBC 4.41 3.80 - 5.10 Million/uL [facility] Hemoglobin 12.9 11.7 - 15.5 g/dL [facility] Hematocrit 40.5 35.0 - 45.0 % [facility] MCV 91.8 80.0 - 100.0 fL [facility] MCH 29.3 27.0 - 33.0 pg [facility] MCHC 31.9(L) 32.0 - 36.0 g/dL [facility] RDW 13.9 11.0 - 15.0 % [facility] Platelet Count 222 140 - 400 Thousand/u L [facility] MPV 10.8 7.5 - 12.5 fL [facility] Neutrophil Absolute 3175 1500 - 7800 cells/uL [facility] Lymphocytes Absolute 1350 850 - 3900 cells/uL [facility] Absolute Monocytes 415 200 - 950 cells/uL [facility] Eosinophils Absolute 50 15 - 500 cells/uL [facility] Basophils Absolute 10 0 - 200 cells/uL [facility] Granulocytes % 63.5 % [facility] Lymphocytes % 27.0 % [facility] Monocytes % 8.3 % [facility] Eosinophils % 1.0 % [facility] Basophils % 0.2 % [facility] Comment: Test Performed at: [facility] [id number] [place] [address] ??[phone] ASPEN HOLLINGSWORTH DO,MPH Blood BLOOD SPECIMEN / Unknown 04/14/2019 10:43 AM CDT 04/14/2019 10:45 AM CDT Perez Cervantes MD LAB - HEMATOLOGY ORD ERABLES Performing Organization Address City/State/[facility] Co de Phone Number [facility] [address] [place] [address] documented in this encounter Visit Diagnoses Diagnosis Polyarthritis Unspecified polyarthropathy or polyarthritis, site unspecified Encounter for therapeutic drug monitoring documented in this encounter Care Teams Supervisor [employer] Relationship Specialty Start Date End Date Jaspreet Pearl MD PCP - General 08/08/18 03/26/24 documented as of this encounter
--- OUTSIDE RECORDS SUMMARY | 2024-11-13 17:08 | XMS_ITS | Encounter Summary ---
Author Organization [facility] Address [address] [facility] [place] [address] Care Team Providers Care Implementation Architect Name Role Phone Jaspreet Pearl MD Primary Care Provider + Encounter Details Date Type Department Care Team (Late Contact Info) Description 01/13/2019 Orders Only [facility] [address] [place] [address] Perez Cervantes MD [address] [place] [address] 2L [place] [address] Encounter for therapeutic drug monitoring; Polyarthritis Social [...] Office Visit [facility] - Rhe[facility]ology [address] [place] [address], [place] [phone] Perez Cervantes MD [address] [place] [address] 2[address] [place] [phone] documented as of this encounter Visit Diagnoses Diagnosis Encounter for therapeutic drug monitoring Polyarthritis Unspecified polyarthropathy or polyarthritis, site unspecified documented in this encounter Care Teams Implementation Architect Relationship Specialty Start Date End Date Jaspreet Pearl MD PCP - General 08/08/18 03/26/24 documented as of this encounter
--- OUTSIDE RECORDS SUMMARY | 2024-11-13 17:08 | XMS_ITS | Encounter Summary ---
Author Organization [facility] Address [address] [facility] [place] [address] Care Team Providers Care Tie Loader Name Role Phone Jaspreet Pearl MD Primary Care Provider + Encounter Details Date Type Department Care Team (Late Contact Info) Description 11/11/2018 Orders Only [facility] [address] [place] [address] Perez Cervantes MD [address] [place] [address] 2L [place] [address] Polyarthritis; Encounter for therapeutic drug [...] Office Visit [facility], [facility] [place] [address] Perez Cervantes MD [address] [place] [address] 2L [place] [address] documented as of this encounter Procedures Procedure Name Priority Date/Time Associated Diagnosis Comments URINALYSIS W/MICROSCOPIC REFLEX TO CULTURE Routine 11/17/2018 8:53 AM INTERFACE CONTROL OFFICER Polyarthritis Encounter for therapeutic drug monitoring C-REACTIVE PROTEIN Routine 11/17/2018 8: 53 AM INTERFACE CONTROL OFFICER Polyarthritis Encounter for therapeutic drug monitoring ERYTHROCYTE SEDIMENTATION RATE Routine 11/17/2018 8:53 AM INTERFACE CONTROL OFFICER Polyarthritis Encounter for therapeutic drug monitoring CBC W/O DIFFERENTIAL Routine 11/17/2018 8:53 AM INTERFACE CONTROL OFFICER Polyarthritis Encounter for therapeutic drug monitoring COMPREHENSIVE METABOLIC PANEL Routine 11/17/2018 8:53 AM INTERFACE CONTROL OFFICER Polyarthritis Encounter for therapeutic drug monitoring documented in this encounter Results * (ABNORMAL) URINALYSIS W/MICROSCOPIC REFLEX TO CULTURE (11/17/2018 8:53 AM INTERFACE CONTROL OFFICER) Color UA YELLOW YELLOW [facility] Appearance CLOUDY(A) CLEAR [facility] Specific [place] [facility] UA 1.012 1.001 - 1.035 [facility] pH UA 5.5 [...] UA NONE SEEN NONE SEEN /HPF [facility] Amorphous UA FEW NONE OR FEW /HPF [facility] Hyaline Casts NONE SEEN NONE SEEN /LPF [facility] Comments FEW MUCOUS THREADS [facility] Comment: Test Performed at: [facility] [id number] [place] [address] ??[phone] ASPEN HOLLINGSWORTH DO,MPH Urine URINE SPECIMEN OBTAINED BY CLEAN CATCH PROCEDURE / Unknown 11/17/2018 8:53 AM INTERFACE CONTROL OFFICER 11/17/2018 8:54 AM INTERFACE CONTROL OFFICER Perez Cervantes MD LAB - URINALYSIS ORD ERABLES [facility] [address] [place] [address] * ERYTHROCYTE SEDIMENTATION RATE (11/17/2018 8:53 AM INTERFACE CONTROL OFFICER) Pathologist [facility] Erythrocyte Sedimentation Rate Westergren 16 < OR = 30 mm/h [facility] Comment: Test Performed at: [facility] ??[phone] NAVID SCOTT MD Blood BLOOD SPECIMEN / Unknown 11/17/2018 8:53 AM INTERFACE CONTROL OFFICER 11/17/2018 8:54 AM INTERFACE CONTROL OFFICER Perez Cervantes MD LAB - HEMATOLOGY ORD ERABLES Performing Organization Address [facility] Co de Phone Number [address] [address] * C-REACTIVE PROTEIN (11/17/2018 8:53 AM INTERFACE CONTROL OFFICER) [facility] [address] C-Reactive Protein 4.9 <8.0 mg/L [facility] Comment: Test Performed at: [facility] [place] [address] [place], [place] ??[phone] ASPEN HOLLINGSWORTH DO,MPH Blood BLOOD SPECIMEN / Unknown 11/17/2018 8:53 AM INTERFACE CONTROL OFFICER 11/17/2018 8:54 AM INTERFACE CONTROL OFFICER Perez Cervantes MD LAB - CHEMISTRY ORDE RABDEMARCO Performing Organization Address [facility] de Phone Number [address] [address] * COMPREHENSIVE METABOLIC PANEL (11/17/2018 8:53 AM INTERFACE CONTROL OFFICER) Pathologist [facility] Glucose 87 65 - 99 mg/dL [facility] Comment: ? Fasting reference interval BUN 17 7 - 25 mg/dL [facility] Creatinine 0.75 0.50 - 1.05 mg/dL [facility] Comment: For patients >49 years of age, the reference limit for Creatinine is approximately 13% higher for people identified as -Luxembourger. eGFR by MDRD 90 > OR = 60 mL/min/1 .73m2 [facility] eGFR by MDRD 104 > OR = 60 mL/min/1 .73m2 [facility] BUN/Creatinine Ratio NOT APPLICABLE 6 - 22 (calc) [facility] Sodium 141 135 - 146 mmol/L [facility] Potassium 4.3 3.5 - 5.3 mmol/L [facility] Chloride 106 98 - 110 mmol/L [facility] CO2 28 20 - 32 mmol/L [facility] Calcium 9.4 8.6 - 10.4 mg/dL [facility] Protein Total 7.1 6.1 - 8.1 g/dL [facility] Albumin 4.5 3.6 - 5.1 g/dL [facility] Globulin Total 2.6 1.9 - 3.7 g/dL (calc) [facility] Albumin/Globulin Ratio 1.7 1.0 - 2.5 (calc) [facility] Bilirubin Total 0.5 0.2 - 1.2 mg/dL [facility] Alkaline Phosphatase 89 33 - 130 U/L [facility] AST 24 10 - 35 U/L [facility] ALT 29 6 - 29 U/L [facility] Comment: Test Performed at: [facility] [address] [place] ??[phone] ASPEN HOLLINGSWORTH DO,MPH Blood BLOOD SPECIMEN / Unknown 11/17/2018 8:53 AM INTERFACE CONTROL OFFICER 11/17/2018 8:54 AM INTERFACE CONTROL OFFICER Perez Cervantes MD [facility] Organization Address City/State/[facility] Co de Phone Number [facility] [address] [place] [address] * CBC W/O DIFFERENTIAL (11/17/2018 8:53 AM INTERFACE CONTROL OFFICER) White Blood Cell Count 5.0 3.8 - 10.8 Thousand/u L [facility] RBC 4.16 3.80 - 5.10 Million/uL [facility] Hemoglobin 12.7 11.7 - 15.5 g/dL [facility] Hematocrit 38.1 35.0 - 45.0 % [facility] MCV 91.6 80.0 - 100.0 fL [facility] MCH 30.5 27.0 - 33.0 pg [facility] MCHC 33.3 32.0 - 36.0 g/dL [facility] RDW 14.2 11.0 - 15.0 % [facility] Platelet Count 213 140 - 400 Thousand/u L [facility] MPV 10.7 7.5 - 12.5 fL [facility] Comment: Test Performed at: [facility] [address] [place] ??[phone] ASPEN HOLLINGSWORTH DO,MPH Blood BLOOD SPECIMEN / Unknown 11/17/2018 8:53 AM INTERFACE CONTROL OFFICER 11/17/2018 8:54 AM INTERFACE CONTROL OFFICER Perez Cervantes MD LAB - HEMATOLOGY ORD [facility] Organization Address City/State/ZIP Co de Phone Number [facility] [address] [place] [address] documented in this encounter Visit Diagnoses Diagnosis Polyarthritis Unspecified polyarthropathy or polyarthritis, site unspecified Encounter for therapeutic drug monitoring documented in this encounter Care Teams Tie Loader Relationship Specialty Start Date End Date Jaspreet Pearl MD PCP - General 08/08/18 03/26/24 documented as of this encounter
--- OUTSIDE RECORDS SUMMARY | 2024-11-13 17:08 | XMS_ITS | Encounter Summary ---
Author Organization [facility] Address [address] [place] [address] Care Team Providers Care Borematic Operator Name Role Phone Jaspreet Pearl MD Primary Care Provider + Encounter Details Date Type Department Care Team (Late Contact Info) Description 12/02/2018 Orders Only [facility] [address] [place] [address] Perez Cervnates MD [address] [place] [address] 2L [place] [address] Encounter for therapeutic drug monitoring; [...] Visit [facility] [address] [place] [address], [facility] [place] [phone] Perez Cervantes MD [address] [place] [address] 2L [place] [phone] documented as of this encounter Visit Diagnoses Diagnosis Encounter for therapeutic drug monitoring Polyarthritis Unspecified polyarthropathy or polyarthritis, site unspecified documented in this encounter Care Teams Borematic Operator Relationship Specialty Start Date End Date Jaspreet Pearl MD PCP - General 08/08/18 03/26/24 documented as of this encounter
--- OUTSIDE RECORDS SUMMARY | 2024-11-13 17:08 | XMS_ITS | Encounter Summary ---
Author Organization [facility] Address [address] [facility] [place] [address] Care Team Providers Care Manual Winder Name Role Phone Jaspreet Pearl MD Primary Care Provider + Encounter Details Date Type Department Care Team (Late Contact Info) Description 03/03/2019 Orders Only [facility] [address] [place] [address] Perez Cervantes MD [address] [place] [address] 2L [place] [address] Polyarthritis; Encounter for therapeutic drug monitoring Social [...] Visit [facility] - Rheumat[facility] [address] [place] [address], [place] [address] Perez Cervantes MD [address] [place] [address] 2L [place] [address] documented as of this encounter Visit Diagnoses Diagnosis Polyarthritis Unspecified polyarthropathy or polyarthritis, site unspecified Encounter for therapeutic drug monitoring documented in this encounter Care Teams Manual Winder Relationship Specialty Start Date End Date Jaspreet Pearl MD PCP - General 08/08/18 03/26/24 documented as of this encounter
--- OUTSIDE RECORDS SUMMARY | 2024-11-13 17:08 | XMS_ITS | Encounter Summary ---
Author Organization [facility] Address [address] [facility] [place] [address] Care Team Providers Care Destination Imagination Coordinator Name Role Phone Jaspreet Pearl MD Primary Care Provider + Encounter Details Date Type Department Care Team (Late Contact Info) Description 09/09/2018 Orders Only [facility] [address] [place] [address] Perez Cervantes MD [address] [place] [address] 2L [place] [address] Encounter for therapeutic drug monitoring; [...] Description 03/27/2025 1:00 PM CDT Office Visit [facility] Rheumatology [address] [place] [address], [facility] [place] [address] Perez Cervantes MD [address] [place] [address] 2L [place] [address] documented as of this encounter Visit Diagnoses Diagnosis Encounter for therapeutic drug monitoring Polyarthritis Unspecified polyarthropathy or polyarthritis, site unspecified documented in this encounter Care Teams Destination Imagination Coordinator Relationship Specialty Start Date End Date Jaspreet Pearl MD PCP - General 08/08/18 03/26/24 documented as of this encounter
--- OUTSIDE RECORDS SUMMARY | 2024-11-13 17:08 | XMS_ITS | Encounter Summary ---
Author Organization [facility] Address [address] [facility] [place] [address] Care Team Providers Care Landscape Supervisor Name Role Phone Jaspreet Pearl MD Primary Care Provider + Encounter Details Date Type Department Care Team (Late st Contact Info) Description 08/19/2018 Orders Only [facility] [address] [place] [address] Perez Cervantes MD [address] [place] [address] 2L [place] [address] Polyarthritis; Encounter for therapeutic drug [...] Office Visit [facility] - Rheumatology [address] [place] [address], [facility] [place] [phone] Perez Cervantes MD [address] [place] [address] 2L [place] [address] documented as of this encounter Visit Diagnoses Diagnosis Polyarthritis Unspecified polyarthropathy or polyarthritis, site unspecified Encounter for therapeutic drug monitoring documented in this encounter Care Teams Landscape Supervisor Relationship Specialty Start Date End Date Jaspreet Pearl MD PCP - General 08/08/18 03/26/24 documented as of this encounter
--- OUTSIDE RECORDS SUMMARY | 2024-11-13 17:08 | XMS_ITS | Encounter Summary ---
Author Organization [facility] Address [address] [place] [address] Care Team Providers Care Rack Production Worker Name Role Phone Toney Munroe MD Primary Care Provider [phone] Encounter Details Date Type Department Care Team (Late Contact Info) Description 06/17/2018 Orders Only [facility] [address] [place] [address] Perez Cervantes MD [address] [place] [address] 2L [place] [address] Encounter for therapeutic drug monitoring; [...] Visit [facility] - Rheumatology [address] [place] [address], [facility] [place] [address] Perez Cervantes MD [address] [place] [address] 2L [place] [address] documented as of this encounter Visit Diagnoses Diagnosis Encounter for therapeutic drug monitoring Polyarthritis Unspecified polyarthropathy or polyarthritis, site unspecified documented in this encounter Care Teams Rack Production Worker Relationship Specialty Start Date End Date Toney Munroe MD PCP - General Family Medicine 02/10/16 07/28/18 documented as of this encounter
--- OUTSIDE RECORDS SUMMARY | 2024-11-13 17:08 | XMS_ITS | Encounter Summary ---
Author Organization [facility] Address [address] [place] [address] Care Team Providers Care Barrel Marker Name Role Phone Jaspreet Pearl MD Primary Care Provider + Encounter Details Date Type Department Care Team (Late Contact Info) Description 03/17/2019 Orders Only [facility] [address] [place] [address] Perez Cervantes MD [address] [place] [address] 2L [place] [address] Polyarthritis; Encounter for therapeutic drug monitoring Social [...] Office Visit [facility] - Rheumatology [address] [place] [address], [place] [phone] Perez Cervantes MD [address] [place] [address] 2L [place] [address] documented as of this encounter Visit Diagnoses Diagnosis Polyarthritis Unspecified polyarthropathy or polyarthritis, site unspecified Encounter for therapeutic drug monitoring documented in this encounter Care Teams Barrel Marker Relationship Specialty Start Date End Date Jaspreet Pearl MD PCP - General 08/08/18 03/26/24 documented as of this encounter
--- OUTSIDE RECORDS SUMMARY | 2024-11-13 17:08 | XMS_ITS | Encounter Summary ---
Author Organization [facility] Address [address] [facility] [place] [address] Care Team Providers Care Vba Developer Name Role Phone Toney Munroe MD Primary Care Provider [phone] Encounter Details Date Type Department Care Team (Late Contact Info) Description 07/10/2016 Orders Only [facility] [address] [place] [address] Lacie Anna MD [address] [place] [address]. [place] [address] Social History Tobacco Use Types Packs/Day Years [...] Visit [facility] - Rheumatology [address] [place] [address], [place] [address] Perez Cervantes MD [address] [place] [address] [place] [address] documented as of this encounter Visit Diagnoses Not on filedocumented in this encounter Care Teams Vba Developer Relationship Specialty Start Date End Date Toney Munroe MD PCP - General Family Medicine 02/10/16 07/28/18 documented as of this encounter
--- OUTSIDE RECORDS SUMMARY | 2024-11-13 17:08 | XMS_ITS | Encounter Summary ---
Author Organization [facility] Address [address] [facility] [place] [address] Care Team Providers Care Creosoting Engineer Name Role Phone Toney Munroe MD Primary Care Provider Reason for Visit * Reason Comments Refill Request Encounter Details Date Type Department Care Team (Late st Contact Info) Description 04/07/2018 Refill [facility] [address] [place] [address] Preez Cervantes MD [address] [place] [address] 2L [place] [address] Refill Request Social History Tobacco [...] Office Visit [facility] - Rheumatology [address] [place] [address], [facility] [place] [address] Perez Cervantes MD [address] [place] [address] 2[address] [place] [address] documented as of this encounter Visit Diagnoses Not on filedocumented in this encounter Care Teams Creosoting Engineer Relationship Specialty Start Date End Date Toney Munroe MD PCP - General Family Medicine 02/10/16 07/28/18 documented as of this encounter
--- OUTSIDE RECORDS SUMMARY | 2024-11-13 17:08 | XMS_ITS | Encounter Summary ---
Author Organization [facility] Address [address] [facility] [place] [address] Care Team Providers Care Road Machine Operator Name Role Phone Jaspreet Pearl MD Primary Care Provider + Encounter Details Date Type Department Care Team (Late st Contact Info) Description 11/17/2018 Orders Only [facility] [address] [place] [address] Perez Cervantes MD [address] [place] [address] 2L [place] [address] Social History Tobacco Use Types [...] Visit [facility] - Rheumatology [address] [place] [address], [place] [address] Perez Cervantes MD [address] [place] [address] 2L [place] [address] documented as of this encounter Procedures Procedure Name Priority Date/Time Associated Diagnosis Comments CULTURE URINE REFLEXED I 11/17/2018 8:53 AM COGNOS ARCHITECT documented in this encounter Results * CULTURE URINE REFLEXED I (11/17/2018 8:53 AM COGNOS ARCHITECT) Reflexive Urine Culture NO CULTURE INDICATED [facility] Comment: Test Performed at: [facility] [address] [place], [place] ??[phone] ASPEN HOLLINGSWORTH DO,MPH 11/17/2018 8:53 AM COGNOS ARCHITECT 11/17/2018 8:54 AM COGNOS ARCHITECT Perez Cervantes MD LAB - MICROBIOLOGY [place] [address] [place] [id number] documented in this encounter Visit Diagnoses Not on filedocumented in this encounter Care Teams Road Machine Operator Relationship Specialty Start Date End Date Jaspreet Pearl MD PCP - General 08/08/18 03/26/24 documented as of this encounter
--- OUTSIDE RECORDS SUMMARY | 2024-11-13 17:08 | XMS_ITS | Encounter Summary ---
Author Organization [facility] Address [address] [facility] [place] [address] Care Team Providers Care Director Of Logistics Name Role Phone Toney Munroe MD Primary Care Provider [phone] Encounter Details Date Type Department Care Team (Late Contact Info) Description 01/31/2018 Orders Only [facility] [address] [place] [address] Perez Cervantes MD [address] [place] [address] 2L [place] [address] Encounter for therapeutic drug monitoring [...] Visit [facility] Rheumatology [address] [place] [address], [place] [address] Perez Cervantes MD [address] [place] [address] 2L [place] [address] documented as of this encounter Visit Diagnoses Diagnosis Encounter for therapeutic drug monitoring- Primary Polyarthritis Unspecified polyarthropathy or polyarthritis, site unspecified documented in this encounter Care Teams Director Of Logistics Relationship Specialty Start Date End Date Toney Munroe MD PCP - General Family Medicine 02/10/16 07/28/18 documented as of this encounter
--- OUTSIDE RECORDS SUMMARY | 2024-11-13 17:08 | XMS_ITS | Encounter Summary ---
Author Organization [facility] Address [address] [place] [address] Care Team Providers Care Manager Dairy Name Role Phone Toney Munroe MD Primary Care Provider Encounter Details Date Type Department Care Team (Late Contact Info) Description 04/15/2018 Orders Only [facility] Rhe[facility]ology [facility] [place] [address] Katina Blankenship, RN Encounter for therapeutic drug [...] Description 03/27/2025 1:00 PM CDT Office Visit [facility] - Rheumatology [address] [place] [address], [facility] [place] [address] Perez Cervantes MD [address] [place] [address] [place] [address] documented as of this encounter Visit Diagnoses Diagnosis Encounter for therapeutic drug monitoring Encounter for long-term (current) use of medications Encounter for long-term (current) use of other medications Polyarthritis Unspecified polyarthropathy or polyarthritis, site unspecified Primary osteoarthritis involving multiple joints documented in this encounter Care Teams Manager Dairy Relationship Specialty Start Date End Date Toney Munroe MD PCP - General Family Medicine 02/10/16 07/28/18 documented as of this encounter
--- OUTSIDE RECORDS SUMMARY | 2024-11-13 17:08 | XMS_ITS | Encounter Summary ---
Author Organization [facility] Address [address] [facility] [place] [address] Care Team Providers Care Wire Sawyer Name Role Phone Jaspreet Pearl MD Primary Care Provider + Encounter Details Date Type Department Care Team (Late Contact Info) Description 10/28/2018 Orders Only [facility] [address] [place] [address] Perez Cervantes MD [address] [place] [address] 2L [place] [address] Polyarthritis; Encounter for therapeutic drug [...] Office Visit [facility] - [facility] [place] [address] Perez Cervantes MD [address] [place] [address] 2L [place] [address] documented as of this encounter Procedures Procedure Name Priority Date/Time Associated Diagnosis Comments URINALYSIS W/MICROSCOPIC REFLEX TO CULTURE Routine 11/17/2018 8:53 AM PAPER AND PRINTS RESTORER Polyarthritis Encounter for therapeutic drug monitoring documented in this encounter Results * (ABNORMAL) URINALYSIS W/MICROSCOPIC REFLEX TO CULTURE (11/17/2018 8:53 AM PAPER AND PRINTS RESTORER) Color UA YELLOW YELLOW [facility] Appearance CLOUDY(A) CLEAR [facility] Specific [place] UA 1.012 1.001 - 1.035 [facility] pH [...] MUCOUS THREADS [facility] Comment: Test Performed at: [facility] [address] [place] [address] ??[phone] ASPEN HOLLINGSWORTH DO,MPH Urine URINE SPECIMEN OBTAINED BY CLEAN CATCH PROCEDURE / Unknown 11/17/2018 8:53 AM PAPER AND PRINTS RESTORER 11/17/2018 8:54 AM PAPER AND PRINTS RESTORER Perez Cervantes MD LAB - URINALYSIS ORD ERABLES Performing Organization Address City/State/[facility] Co de Phone Number [facility] [address] [place] [address] documented in this encounter Visit Diagnoses Diagnosis Polyarthritis Unspecified polyarthropathy or polyarthritis, site unspecified Encounter for therapeutic drug monitoring documented in this encounter Care Teams Wire Sawyer Relationship Specialty Start Date End Date Jaspreet Pearl MD PCP - General 08/08/18 03/26/24 documented as of this encounter
--- OUTSIDE RECORDS SUMMARY | 2024-11-13 17:08 | XMS_ITS | Encounter Summary ---
Author Organization [facility] Address [address] [facility] [place] [address] Care Team Providers Care Tool And Die Manager Name Role Phone Jaspreet Pearl MD Primary Care Provider + Encounter Details Date Type Department Care Team (Late Contact Info) Description 01/05/2019 Orders Only [facility] [address] [place] [address] Perez Cervantes MD [address] [place] [address] 2L [place] [address] Social History Tobacco Use Types [...] Office Visit [facility] [address] [place] [address], [facility] [place] [address] Perez Cervantes MD [address] [place] [address] 2L [place] [address] documented as of this encounter Procedures Procedure Name Priority Date/Time Associated Diagnosis Comments CULTURE URINE REFLEXED I 01/05/2019 3:35 PM DIRECTOR OF INFORMATICS documented in this encounter Results * CULTURE URINE REFLEXED I (01/05/2019 3:35 PM DIRECTOR OF INFORMATICS) Reflexive Urine Culture NO CULTURE INDICATED [facility] Comment: Test Performed at: [employer] [facility] [place] [address] [place], [place] ??[phone] ASPEN HOLLINGSWORTH DO,MPH 01/05/2019 3:35 PM DIRECTOR OF INFORMATICS 01/05/2019 3:35 PM DIRECTOR OF INFORMATICS Perez Cervantes MD LAB - MICROBIOLOGY O RDERABLES Performing Organization Address City/State/[facility] Co de Phone Number [facility] [address] [place] [address] documented in this encounter Visit Diagnoses Not on filedocumented in this encounter Care Teams Tool And Die Manager Relationship Specialty Start Date End Date Jaspreet Pearl MD PCP - General 08/08/18 03/26/24 documented as of this encounter
--- OUTSIDE RECORDS SUMMARY | 2024-11-13 17:08 | XMS_ITS | Encounter Summary ---
Author Organization [facility] Address [address] [place] [address] Care Team Providers Care Research Lab Assistant Name Role Phone Jaspreet Pearl MD Primary Care Provider + Encounter Details Date Type Department Care Team (Late Contact Info) Description 12/09/2018 Orders Only [facility] [address] [place] [address] Perez Cervantes MD [address] [place] [address] 2L [place] [address] Polyarthritis; Encounter for therapeutic drug monitoring Social [...] Office Visit [facility] - Rheumatology [address] [place] [address], [place] [phone] Perez Cervantes MD [address] [place] [address] 2L [place] [phone] documented as of this encounter Visit Diagnoses Diagnosis Polyarthritis Unspecified polyarthropathy or polyarthritis, site unspecified Encounter for therapeutic drug monitoring documented in this encounter Care Teams Research Lab Assistant Relationship Specialty Start Date End Date Jaspreet Pearl MD PCP - General 08/08/18 03/26/24 documented as of this encounter
--- OUTSIDE RECORDS SUMMARY | 2024-11-13 17:08 | XMS_ITS | Encounter Summary ---
Author Organization [facility] Health Address [address] [facility] [place] [address] Care Team Providers Care Metal Sheet Roller Operator Name Role Phone Toney Munroe MD Primary Care Provider Reason for Referral * Radiology Services (Routine) - Closed Specialty Diagnoses / Procedures Referred By Henrryac t Referred To Contact MRI Diagnoses 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) Hip pain, bilateral Procedures MRI PELVIS NON CONTRAST Flip Garcia MD [address] [place] [address] Referral ID Status Reason Start Date Expiration Date Visits Re quested Visits Authorized [id number] Closed 03/06/2016 09/02/2016 1 1 Reason for Visit * Radiology Services (Routine) - Closed Specialty Diagnoses / Procedures Referred By Henrryac t Referred To Contact MRI Diagnoses Bilateral hip pain Procedures [place] MRI, PELVIS, W/O CONTRAST MRI Pelvis WO Flip Garcia MD [address] [place] [address] Referral ID Status Reason Start Date Expiration Date Visits Re quested Visits Authorized [id number] Closed 02/17/2016 03/18/2016 1 1 Encounter Details Date Type Department Care Team (Latest Contact Info) Description 03/06/2016 1:00 PM CDT - 03/06/2016 11:59 PM CDT Hospital Encounter [facility] Health Imaging Services - MRI [address] [place] [address] Flip Garcia MD [address] [facility] [address] [place] [phone] Discharge Disposition: Home or Self Care Social [...] Visit [facility] [address] [place] [address], [facility] [place] [phone] Perez Cervantes MD [address] [place] [address] [place] [address] documented as of this encounter Procedures Procedure Name Priority Date/Time Associated Diagnosis Comments MRI PELVIS WO CONTRAST Routine 03/06/2016 1:40 PM CDT 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) Hip pain, bilateral documented in this encounter Results * MRI PELVIS NON CONTRAST (03/06/2016 1:40 [...] effusions and mild bilateral greater trochanteric bursitis. Flip Garcia MD MR ORDERABLES documented in this encounter Visit Diagnoses Diagnosis 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) Hip pain, bilateral Pain in joint, pelvic region and thigh documented in this encounter Care Teams Metal Sheet Roller Operator Relationship Specialty Start Date End Date Toney Munroe MD PCP - General Family Medicine 02/10/16 07/28/18 documented as of this encounter
--- OUTSIDE RECORDS SUMMARY | 2024-11-13 17:08 | XMS_ITS | Encounter Summary ---
Author Organization [facility] Address [address] [place] [address] Care Team Providers Care Operations Support Analyst Name Role Phone Jaspreet Pearl MD Primary Care Provider + Encounter Details Date Type Department Care Team (Late Contact Info) Description 12/23/2018 Orders Only [facility] [address] [place] [address] Perez Cervantes MD [address] [place] [address] 2L [place] [phone] Polyarthritis; Encounter for therapeutic drug monitoring Social [...] Office Visit [facility] - Rhe[facility]ology [address] [place] [address], [place] [phone] Perez Cervantes MD [address] [place] [address] 2L [place] [phone] documented as of this encounter Procedures Procedure Name Priority Date/Time Associated Diagnosis Comments URINALYSIS W/MICROSCOPIC REFLEX TO CULTURE Routine 01/05/2019 3:35 PM DIGITAL ASSET MANAGER Polyarthritis Encounter for therapeutic drug monitoring C-REACTIVE PROTEIN Routine 01/05/2019 3: 35 PM DIGITAL ASSET MANAGER Polyarthritis Encounter for therapeutic drug monitoring ERYTHROCYTE SEDIMENTATION RATE Routine 01/05/2019 3:35 PM DIGITAL ASSET MANAGER Polyarthritis Encounter for therapeutic drug monitoring CBC W/O DIFFERENTIAL Routine 01/05/2019 3:35 PM DIGITAL ASSET MANAGER Polyarthritis Encounter for therapeutic drug monitoring COMPREHENSIVE METABOLIC PANEL Routine 01/05/2019 3:35 PM DIGITAL ASSET MANAGER Polyarthritis Encounter for therapeutic drug monitoring documented in this encounter Results * (ABNORMAL) URINALYSIS W/MICROSCOPIC REFLEX TO CULTURE (01/05/2019 3:35 PM DIGITAL ASSET MANAGER) Color UA YELLOW YELLOW [facility] Appearance CLOUDY(A) CLEAR [facility] Specific [place] UA 1.011 1.001 - 1.035 [facility] pH UA 5.5 [...] SEEN /LPF [facility] Comment: Test Performed at: [facility] [address] [place], [place] ??[phone] ASPEN HOLLINGSWORTH DO,MPH Urine URINE SPECIMEN OBTAINED BY CLEAN CATCH PROCEDURE / Unknown 01/05/2019 3:35 PM DIGITAL ASSET MANAGER 01/05/2019 3:35 PM DIGITAL ASSET MANAGER Perez Cervantes MD LAB - URINALYSIS ORD ERABLES [facility] [address] [place] [address] * ERYTHROCYTE SEDIMENTATION RATE (01/05/2019 3:35 PM DIGITAL ASSET MANAGER) Erythrocyte Sedimentation Rate Westergren 11 < OR = 30 mm/h [facility] Comment: Test Performed at: [facility] [place] [address] [place], [place] ??[phone] ASPEN HOLLINGSWORTH DO,MPH Blood BLOOD SPECIMEN / Unknown 01/05/2019 3:35 PM DIGITAL ASSET MANAGER 01/05/2019 3:35 PM DIGITAL ASSET MANAGER Perez Cervantes MD LAB - HEMATOLOGY ORD ERABLES Performing Organization Address [facility] Co de Phone Number [facility] [address] [place] [address] * C-REACTIVE PROTEIN (01/05/2019 3:35 PM DIGITAL ASSET MANAGER) Pathologist [facility] C-Reactive Protein 2.6 <8.0 mg/L [facility] Comment: Test Performed at: [facility] [place] [id number] [place], [place] ??[phone] ASPEN HOLLINGSWORTH DO,MPH Blood BLOOD SPECIMEN / Unknown 01/05/2019 3:35 PM DIGITAL ASSET MANAGER 01/05/2019 3:35 PM DIGITAL ASSET MANAGER Perez Cervantes MD LAB - CHEMISTRY ORDSagar DAVID Performing Organization Address [facility] de Phone Number [facility] [address] [place] [address] * COMPREHENSIVE METABOLIC PANEL (01/05/2019 3:35 PM DIGITAL ASSET MANAGER) Pathologist [facility] Glucose 83 65 - 99 mg/dL [facility] Comment: ? Fasting reference interval BUN 18 7 - 25 mg/dL [facility] Creatinine 0.81 0.50 - 1.05 mg/dL [facility] Comment: For patients >49 years of age, the reference limit for Creatinine is approximately 13% higher for people identified as -Djiboutian. eGFR by MDRD 82 > OR = 60 mL/min/1 .73m2 [facility] eGFR by MDRD 95 > OR = 60 mL/min/1 .73m2 [facility] BUN/Creatinine Ratio NOT APPLICABLE 6 - 22 (calc) [facility] Sodium 140 135 - 146 mmol/L [facility] Potassium 4.2 3.5 - 5.3 mmol/L [facility] Chloride 103 98 - 110 mmol/L [facility] CO2 30 20 - 32 mmol/L [facility] Calcium 9.8 8.6 - 10.4 mg/dL [facility] Protein Total 7.2 6.1 - 8.1 g/dL [facility] Albumin 4.5 3.6 - 5.1 g/dL [facility] Globulin Total 2.7 1.9 - 3.7 g/dL (calc) [facility] Albumin/Globulin Ratio 1.7 1.0 - 2.5 (calc) [facility] Bilirubin Total 0.3 0.2 - 1.2 mg/dL [facility] Alkaline Phosphatase 85 33 - 130 U/L [facility] AST 21 10 - 35 U/L [facility] ALT 16 6 - 29 U/L [facility] Comment: Test Performed at: [facility] [address] [place] [address] ??[phone] ASPEN HOLLINGSWORTH DO,MPH Blood BLOOD SPECIMEN / Unknown 01/05/2019 3:35 PM DIGITAL ASSET MANAGER 01/05/2019 3:35 PM DIGITAL ASSET MANAGER Perez Cervantes MD LAB - CHEMISTRY GERA DAVID [facility] Organization Address City/State/ZIP Co de Phone Number [facility] [address] [place] [address] * CBC W/O DIFFERENTIAL (01/05/2019 3:35 PM DIGITAL ASSET MANAGER) White Blood Cell Count 4.7 3.8 - 10.8 Thousand/u L [facility] RBC 4.08 3.80 - 5.10 Million/uL [facility] Hemoglobin 12.6 11.7 - 15.5 g/dL [facility] Hematocrit 37.2 35.0 - 45.0 % [facility] MCV 91.2 80.0 - 100.0 fL [facility] MCH 30.9 27.0 - 33.0 pg [facility] MCHC 33.9 32.0 - 36.0 g/dL [facility] RDW 14.0 11.0 - 15.0 % [facility] Platelet Count 196 140 - 400 Thousand/u L [facility] MPV 11.1 7.5 - 12.5 fL [facility] Comment: Test Performed at: [employer] [address] [place] [address] ??[phone] ASPEN HOLLINGSWORTH DO,MPH Blood BLOOD SPECIMEN / Unknown 01/05/2019 3:35 PM DIGITAL ASSET MANAGER 01/05/2019 3:35 PM DIGITAL ASSET MANAGER Perez Cervantes MD LAB - HEMATOLOGY ORD [facility] Organization Address City/State/ZIP Co de Phone Number [facility] [address] [place] [address] documented in this encounter Visit Diagnoses Diagnosis Polyarthritis Unspecified polyarthropathy or polyarthritis, site unspecified Encounter for therapeutic drug monitoring documented in this encounter Care Teams Operations Support Analyst Relationship Specialty Start Date End Date Jaspreet Pearl MD PCP - General 08/08/18 03/26/24 documented as of this encounter
--- OUTSIDE RECORDS SUMMARY | 2024-11-13 17:08 | XMS_ITS | Encounter Summary ---
Author Organization [facility] Health Address [address] [facility] [place] [address] Care Team Providers Care Transportation Planner Name Role Phone Jaspreet Pearl MD Primary Care Provider + Reason for Visit * Reason Comments Follow-up Polyarthritis Encounter Details Date Type Department Care Team (Latest Contact Info) Description 06/05/2019 1:00 PM CDT Office Visit [facility] [address] [place] [address] Perez Cervantes MD [address] [place] [address] Polyarthritis (Primary Dx); Encounter for therapeutic drug [...] Sign Reading Time Taken Comments Blood Pressure 128/76 06/05/2019 12:42 PM CDT Pulse 68 06/05/2019 12:42 PM CDT Temperature 37.2 ??C (98.9 ??F) 06/05/2019 12:42 PM C DT Respiratory Rate - - Oxygen Saturation - - Inhaled Oxygen Concentration - - Weight 75.3 kg (166 lb) 06/05/2019 12:42 PM CDT Height - - Body Mass Index 25.24 12/05/2018 1:25 PM REAL ESTATE INSTRUCTOR documented in this encounter Progress Notes * Perez Cervantes MD - 06/05/2019 12:28 PM CDT (Prob #1) Polyarthritis (Ab Negative) (Prob #2) OA Hands (Labs) Recent Labs Component Name 04/14/19 1043 01/05/19 1535 11/17/18 0853 01/07/18 0744 10/22/17 0734 08/13/17 0734 WBC 5.0 4.7 5.0 - 4.4 4.3 3.7* RBC 4.41 4.08 4.16 - 4.14 4.33 4.31 HGB 12.9 12.6 12.7 - 12.5 13.1 13.0 HCT 40.5 37.2 38.1 - 37.8 40.0 39.4 MCV 91.8 91.2 91.6 - 91.3 92.4 91.4 MCHC 31.9* 33.9 33.3 - 33.1 32.8 33.1 PLTCOUNT 222 196 213 - - - - NEUTPCT - - - - 55.7 60.3 65.4 NEUTABS - - - - 2451 2593 2420 - = values in this interval not displayed. ESR 17; CRP 0.31 UA RBCs CXR/Quant Gold negative in July Recent Labs Component Name 04/14/19 1043 01/05/19 1535 11/17/18 0853 SODIUM 140 140 141 POTASSIUM 4.6 4.2 4.3 CHLORIDE 102 103 106 CO2 26 30 28 BUN 16 18 17 CREATININE 0.81 0.81 0.75 GLUCOSE 81 83 87 CALCIUM 9.5 9.8 9.4 ALT 25 16 29 ALKPHOS 100 85 89 AST 23 21 24 TBIL 0.6 0.3 0.5 TPROT 7.6 7.2 7.1 EGFR 81 82 90 EGFRAFR 94 95 104 (Subj) Patient remains on 50 mg Enbrel SQ/week, 20 mg MTX/week, 1 mg FA/d, and 1 g Nabumetone bid+ other meds. Patient has no increase AM stiffness with overall stable. No new joints involved. No skin rashes, mucosal ulcers, or systemic complaints. Saw PMD for anxiety/depression, but no new illnesses. Sicca complaints improved on Xidra Dental implants stable. Rest of ROS negative. Past/Social/Family History reviewed. Doing water aerobics twice/week and walking [place]. (Obj) BP 128/76 (BP SITE: RIGHT ARM, BP POSITION: SITTING, BP CUFF SIZE: 11) Pulse 68 Temp 98.9 ??F(37.2 ??C) (Oral) Wt 166 lb (75.3 kg) BMI 25.24 kg/m2 (Skin) No rashes or eruptions (HEENT) No mucosal ulcers. Moist membranes. No parotid fullness; (Neck) No adenopathy/thyromegaly (Back) No CVA/LS/SI tenderness (General) Unremarkable (Extrem) HNs DIPs/BNs 5th PIPs with T1/CARE HOME prominence; 1-3rd MCPs SfT0; 2-4th MTps SfT1; No other synovitis. MS= bilat (Assess) Stable on present meds (Plan) Continue same meds with labs q 6-8 weeks and TB screening now. Also, check RF studies, Ab toSSA/SSB/Ig levels. Advise if any change in parameters. RTO in 6 months. Perez Cervantes MD, FACP, FAAP, MACR [employer] Group Leader and Pediatric Rheumatology Professor of Internal Medicine,Pediatrics, and Molecular Immunology [facility] documented in this encounter Plan of Treatment Upcoming Encounters Date Type Department Care Team (Late st Contact Info) Description 03/27/2025 1:00 PM CDT Office Visit [facility] Rhe[facility] [address] [place] [address], [place] [address] Perez Cervantes MD [address] [place] [address] [place] [address] Scheduled Orders Name Type Priority Associated Diagnoses Orde r Schedule [facility] Lab Routine Encounter for therapeutic drug monitoring Ordered: 06/05/2019 documented as of this encounter Procedures Procedure Name Priority Date/Time Associated Diagnosis Comments SS-A/SS-B (SJOGREN'S) ANTIBODY PANEL Routine 06/06/2019 8:15 AM CDT Polyarthritis RHEUMATOID ARTHRITIS PANEL Routine 06/06/2019 8:15 AM CDT Polyarthritis IMMUNOGLOBULINS IGG/IGM/IGA PANEL Routine 06/06/2019 8:15 AM CDT Polyarthritis documented in this encounter Results * SS-A/SS-B (SJOGRENS) ANTIBODY PANEL (06/06/2019 8:15 AM CDT) Sjogren's Antibodies (SSA) <1.0 NEG <1.0 NEG AI [facility] Sjogren's Antibodies (SSB) <1.0 NEG <1.0 NEG AI [facility] Comment: Test Performed at: [facility] [address] [place], [place] ??[phone] ASPEN HOLLINGSWORTH DO,MPH Blood BLOOD SPECIMEN / Unknown 06/06/2019 8:15 AM CDT 06/06/2019 8:16 AM CDT Perez Cervantes MD LAB - CHEMISTRY GERA DAVID Performing Organization Address [facility] Co de Phone Number [facility] [address] [place] [address] * IMMUNOGLOBULINS IGG/IGM/IGA PANEL (06/06/2019 8:15 AM CDT) IgA 236 47 - 310 mg/dL [facility] IgG 1242 600 - 1640 mg/dL [facility] IgM 76 50 - 300 mg/dL [facility] Comment: Test Performed at: [facility] [place] [address] [place], [place] ??[phone] ASPEN HOLLINGSWORTH DO,MPH Blood BLOOD SPECIMEN / Unknown 06/06/2019 8:15 AM CDT 06/06/2019 8:16 AM CDT Perez Cervantes MD LAB - CHEMISTRY GERA DAVID Performing Organization Address [facility] Co de Phone Number [facility] [phone] [place] [address] * RHEUMATOID ARTHRITIS PANEL (06/06/2019 8:15 AM CDT) Rheumatoid Factor <14 <14 IU/mL [facility] Cyclic Citrullinated Peptide Antibody IgG <16 UNITS [facility] Comment: Reference Range Negative: ?<20 Weak Positive: ? 20-39 Moderate Positive: ?? 40-59 Strong Positive: ? >59 Test Performed at: [facility] [place], [place] ??[phone] APSEN HOLLINGSWORTH DO,MPH Interpretation [facility] Comment: These serologic results may be found in 10-20% of patients with polyarthritis that is clinically and radiologically indistinguishable from RA. Test Performed at: [facility] [place], [place] ??[phone] ASPEN HOLLINGSWORTH DO,MPH Blood BLOOD SPECIMEN / Unknown 06/06/2019 8:15 AM CDT 06/06/2019 8:16 AM CDT Perez Cervantes MD LAB - SEROLOGY ORDER ADELAIDE [facility] [address] [place] [id number] * XR CHEST 2VW (06/05/2019 1:24 PM CDT) Anatomical Region Laterality Modality Chest Radiographic Corin ging 06/05/2019 1:28 PM CDT Impressions 06/05/2019 1:28 PM CDT IMPRESSION: No acute pulmonary process. This report was electronically signed by BEN TUCKER ??on 06/05/2019 1:28 PM . Narrative 06/05/2019 1:28 PM CDT EXAMINATION: XR CHEST 2VW HISTORY: Monitoring Biologic FINDINGS: Comparison is made with 08/08/2018 There is no focal consolidation, pleural effusion, or pneumothorax. The cardiomediastinal silhouette is normal. The visible bony thorax is intact. Numerous granulomata are redemonstrated throughout the chest. Procedure Note Ben Tucker DO - 06/05/2019 EXAMINATION: XR CHEST 2VW HISTORY: Monitoring Biologic FINDINGS: Comparison is made with 08/08/2018 There is no focal consolidation, pleural effusion, or pneumothorax. The cardiomediastinal silhouette is normal. The visible bony thorax is intact. Numerous granulomata are redemonstrated throughout the chest. IMPRESSION: No acute pulmonary process. This report was electronically signed by BEN TUCKER on 06/05/2019 1:28 PM . Perez Cervantes MD DIAGNOSTIC IMAGING O RDERABLES documented in this encounter Visit Diagnoses Diagnosis Polyarthritis- Primary Unspecified polyarthropathy or polyarthritis, site unspecified Encounter for therapeutic drug monitoring Polyarthritis Unspecified polyarthropathy or polyarthritis, site unspecified Encounter for therapeutic drug monitoring documented in this encounter Care Teams Transportation Planner Relationship Specialty Start Date End Date Jaspreet Pearl MD PCP - General 08/08/18 03/26/24 documented as of this encounter
--- OUTSIDE RECORDS SUMMARY | 2024-11-13 17:08 | XMS_ITS | Encounter Summary ---
Author Organization [facility] Address [address] [facility] [place] [address] Care Team Providers Care Custom Frame Assembler Name Role Phone Toney Munroe MD Primary Care Provider [phone] Encounter Details Date Type Department Care Team (Latest Contact Info) Description 01/31/2018 Hospital Outpatient Visit [facility] [address] [place] [phone] Perez Cervantes MD [address] [place] [address] 2L [place] [address] Discharge Disposition: Home or Self Care Social [...] Office Visit [facility] [address] [facility], [place] [phone] Perez Cervantes MD [address] [place] [address] 2L [place] [address] documented as of this encounter Visit Diagnoses Not on filedocumented in this encounter Care Teams Custom Frame Assembler Relationship Specialty Start Date End Date Toney Munroe MD PCP - General Family Medicine 02/10/16 07/28/18 documented as of this encounter
--- OUTSIDE RECORDS SUMMARY | 2024-11-13 17:08 | XMS_ITS | Encounter Summary ---
Author Organization [facility] Address [address] [facility] [place] [place] [address] Care Team Providers Care Assembly Line Upholsterer Name Role Phone Jaspreet Pearl MD Primary Care Provider + Encounter Details Date Type Department Care Team (Late Contact Info) Description 01/20/2019 Orders Only [facility] [address] [place] [address] Perez Cervantes MD [address] [place] [address] 2L [place] [address] Polyarthritis; Encounter for therapeutic drug monitoring Social [...] Office Visit [facility] [address] [place] [address], [place] [phone] Perez Cervantes MD [address] [place] [address] 2L [place] [address] documented as of this encounter Visit Diagnoses Diagnosis Polyarthritis Unspecified polyarthropathy or polyarthritis, site unspecified Encounter for therapeutic drug monitoring documented in this encounter Care Teams Assembly Line Upholsterer Relationship Specialty Start Date End Date Jaspreet Pearl MD PCP - General 08/08/18 03/26/24 documented as of this encounter
--- OUTSIDE RECORDS SUMMARY | 2024-11-13 17:08 | XMS_ITS | Encounter Summary ---
Author Organization [facility] Address [address] [facility] [place] [address] Care Team Providers Care Pharmacy Assistant Name Role Phone Toney Munroe MD Primary Care Provider [phone] Encounter Details Date Type Department Care Team (Latest Contact Info) Description 02/13/2016 9:05 AM CDT - 02/13/2016 11:59 PM CDT Hospital Encounter [facility] [address] [place] [address] Flip Garcia MD [address] [place] [address] [place] [address] Discharge Disposition: Home or Self Care Social [...] Visit [facility] Rheumatology [address] [place] [address], [place] [address] Perez Cervantes MD [address] [place] [address] [place] [phone] documented as of this encounter Procedures Procedure Name Priority Date/Time Associated Diagnosis Comments XR PELVIS W BILAT HIP 2VW Routine 02/13/2016 9:25 AM CDT Bilateral hip pain documented in this encounter Results * XR PELVIS W BILAT HIP 2VW (02/13/2016 9:25 AM CDT) Anatomical Region Laterality Modality Pelvis, Lower Extremity Radiogra phic Imaging 02/13/2016 4:16 PM CDT Impressions 02/13/2016 [...] hip. IMPRESSION Normal bilateral hip joint spaces. Flip Garcia MD DIAGNOSTIC IMAGING O RDERABLES documented in this encounter Visit Diagnoses Diagnosis Bilateral hip pain Pain in joint, pelvic region and thigh documented in this encounter Care Teams Pharmacy Assistant Relationship Specialty Start Date End Date Toney Munroe MD PCP - General Family Medicine 02/10/16 07/28/18 documented as of this encounter
--- OUTSIDE RECORDS SUMMARY | 2024-11-13 17:08 | XMS_ITS | Encounter Summary ---
Author Organization [facility] Address [address] [facility] [place] [address] Care Team Providers Care Plunket Nurse Name Role Phone Jaspreet Pearl MD Primary Care Provider + Encounter Details Date Type Department Care Team (Latest Contact Info) Description 06/05/2019 1:20 PM CDT - 06/05/2019 11:59 PM CDT Hospital Encounter [facility] DIAGNOSTIC RAD OP [address] [place] [address] Perez Cervantes MD [address] [place] [address] Discharge Disposition: Home or Self [...] End Date Azelastine HCl 137 MCG/SPRAY SOLN Holt 2 sprays into the nose 2 times daily dicyclomine (BENTYL) 20 MG tablet Take 1 (one) tablet by mouth as needed Multiple Vitamin (MULTI VITAMIN PO) Take 1 tablet by mouth once daily buPROPion (WELLBUTRIN) 75 MG tablet Take 75 [...] TABLET BY MOUTH DAILY 30 tablet 11 02/01/2019 02/26/2020 methotrexate 2.5 MG tabletIndications:Po lyarthritis TAKE 8 [...] 03/27/2025 1:00 PM CDT Office Visit [facility] - Rheumatology [address] [place] [address], [facility] [place] [address] Perez Cervantes MD [address] [place] [address] [place] [phone] documented as of this encounter Procedures Procedure Name Priority Date/Time Associated Diagnosis Comments XR CHEST 2VW Routine 06/05/2019 1:24 PM CDT Polyarthritis Encounter for therapeutic drug monitoring documented in this encounter Results * XR CHEST 2VW (06/05/2019 1:24 PM [...] redemonstrated throughout the chest. Procedure Note Ben Tucker, - 06/05/2019 EXAMINATION: XR CHEST 2VW HISTORY: [...] monitoring documented in this encounter Care Teams Plunket Nurse Relationship Specialty Start Date End Date Jaspreet Pearl MD PCP - General 08/08/18 03/26/24 documented as of this encounter
--- OUTSIDE RECORDS SUMMARY | 2024-11-13 17:08 | XMS_ITS | Encounter Summary ---
Author Organization [facility] Address [address] [place] [address] Care Team Providers Care Tanning Wheel Operator Name Role Phone Toney Munroe MD Primary Care Provider Encounter Details Date Type Department Care Team (Latest Contact Info) Description 08/03/2016 Hospital Outpatient Visit Historic [facility] [address] [place] [phone] Perez Cervantes MD [address] [place] [address] 2L [place] [address] Discharge Disposition: Home or Self Care Social [...] Visit [facility] - Rheumatology [address] [place] [address], [place] [phone] Perez Cervantes MD [address] [place] [address] [address] [place] [phone] documented as of this encounter Visit Diagnoses Not on filedocumented in this encounter Care Teams Tanning Wheel Operator Relationship Specialty Start Date End Date Toney Munroe MD PCP - General Family Medicine 02/10/16 07/28/18 documented as of this encounter
--- OUTSIDE RECORDS SUMMARY | 2024-11-13 17:08 | XMS_ITS | Encounter Summary ---
Author Organization [facility] Address [address] [facility] [place] [address] Care Team Providers Care Framing Inspector Name Role Phone Jaspreet Pearl MD Primary Care Provider + Encounter Details Date Type Department Care Team (Late Contact Info) Description 10/20/2019 Orders Only [facility] [address] [place] [address] Perez Cervantes MD [address] [place] [address] 2L [place] [address] Social History Tobacco Use Types [...] Office Visit [facility] - Rheumatology [address] [place] [address], [place] [phone] Perez Cervantes MD [address] [place] [address] 2[address] [place] [phone] documented as of this encounter Procedures Procedure Name Priority Date/Time Associated Diagnosis Comments CULTURE URINE REFLEXED I 10/20/2019 7:38 AM ACCREDITED LEGAL SECRETARY URINALYSIS W/MICROSCOPIC REFLEX TO CULTURE 10/20/2019 7:38 AM ACCREDITED LEGAL SECRETARY C-REACTIVE PROTEIN 10/20/2019 7: 38 AM ACCREDITED LEGAL SECRETARY ERYTHROCYTE SEDIMENTATION RATE 10/20/2019 7:38 AM ACCREDITED LEGAL SECRETARY CBC W AUTO DIFFERENTIAL 10/20/2019 7:38 AM ACCREDITED LEGAL SECRETARY COMPREHENSIVE METABOLIC PANEL 10/20/2019 7:38 AM ACCREDITED LEGAL SECRETARY documented in this encounter Results * CULTURE URINE REFLEXED I (10/20/2019 7:38 AM ACCREDITED LEGAL SECRETARY) Reflexive Urine Culture NO CULTURE INDICATED [facility] Comment: Test Performed at: [employer] [address] [employer] [place], [place] ??[phone] ASPEN HOLLINGSWORTH DO,MPH 10/20/2019 7:38 AM ACCREDITED LEGAL SECRETARY 10/20/2019 7:39 AM ACCREDITED LEGAL SECRETARY Perez Cervantes MD LAB - MICROBIOLOGY O JOEY Performing Organization Address [facility] Co de Phone Number [facility] [address] [place] [address] * C-REACTIVE PROTEIN (10/20/2019 7:38 AM ACCREDITED LEGAL SECRETARY) C-Reactive Protein 2.9 <8.0 mg/L [facility] Comment: REPORT COMMENT: FASTING:YES Test Performed at: [employer] [address] [employer] [facility] [employer] ??[phone] ASPEN HOLLINGSWORTH DO,MPH 10/20/2019 7:38 AM ACCREDITED LEGAL SECRETARY 10/20/2019 7:39 AM ACCREDITED LEGAL SECRETARY Perez Cervantes MD LAB - CHEMISTRY GERA DAVID Performing Organization Address [facility] Co de Phone Number [facility] [address] [place] [address] * ERYTHROCYTE SEDIMENTATION RATE (10/20/2019 7:38 AM ACCREDITED LEGAL SECRETARY) Erythrocyte Sedimentation Rate Westergren 11 < OR = 30 mm/h [facility] Comment: Test Performed at: [employer] [address] [place], [place] ??[phone] ASPEN HOLLINGSWORTH DO,MPH 10/20/2019 7:38 AM ACCREDITED LEGAL SECRETARY 10/20/2019 7:39 AM ACCREDITED LEGAL SECRETARY Perez Cervantes MD LAB - HEMATOLOGY ORD ERABLES [facility] [address] [place] [address] * COMPREHENSIVE METABOLIC PANEL (10/20/2019 7:38 AM ACCREDITED LEGAL SECRETARY) Glucose 80 65 - 99 mg/dL [facility] Comment: ? Fasting reference interval BUN 19 7 - 25 mg/dL [facility] Creatinine 0.81 0.50 - 1.05 mg/dL [facility] Comment: For patients >49 years of age, the reference limit for Creatinine is approximately 13% higher for people identified as -Niuean. eGFR by MDRD 81 > OR = 60 mL/min/1 .73m2 [facility] eGFR by MDRD 94 > OR = 60 mL/min/1 .73m2 [facility] BUN/Creatinine Ratio NOT APPLICABLE 6 - 22 (calc) [facility] Sodium 141 135 - 146 mmol/L [facility] Potassium 4.4 3.5 - 5.3 mmol/L [facility] Chloride 103 98 - 110 mmol/L [facility] CO2 30 20 - 32 mmol/L [facility] Calcium 9.7 8.6 - 10.4 mg/dL [facility] Protein Total 7.0 6.1 - 8.1 g/dL [facility] Albumin 4.4 3.6 - 5.1 g/dL [facility] Globulin Total 2.6 1.9 - 3.7 g/dL (calc) [facility] Albumin/Globulin Ratio 1.7 1.0 - 2.5 (calc) [facility] Bilirubin Total 0.5 0.2 - 1.2 mg/dL [facility] Alkaline Phosphatase 101 33 - 130 U/L [facility] AST 20 10 - 35 U/L [facility] ALT 21 6 - 29 U/L [facility] Comment: Test Performed at: [employer] [address] [place] ??[phone] ASPEN HOLLINGSWORTH DO,MPH 10/20/2019 7:38 AM ACCREDITED LEGAL SECRETARY 10/20/2019 7:39 AM ACCREDITED LEGAL SECRETARY Perez Cervantes MD LAB - CHEMISTRY GERA DAVID Performing Organization Address [facility] de Phone Number [facility] [address] [place] [address] * CBC WITH DIFFERENTIAL (10/20/2019 7:38 AM ACCREDITED LEGAL SECRETARY) White Blood Cell Count 4.2 3.8 - 10.8 Thousand/u L [facility] RBC 4.27 3.80 - 5.10 Million/uL [facility] Hemoglobin 13.0 11.7 - 15.5 g/dL [facility] Hematocrit 39.7 35.0 - 45.0 % [facility] MCV 93.0 80.0 - 100.0 fL [facility] MCH 30.4 27.0 - 33.0 pg [facility] MCHC 32.7 32.0 - 36.0 g/dL [facility] RDW 14.2 11.0 - 15.0 % [facility] Platelet Count 234 140 - 400 Thousand/u L [facility] MPV 11.0 7.5 - 12.5 fL [facility] Neutrophil Absolute 2226 1500 - 7800 cells/uL [facility] Lymphocytes Absolute 1432 850 - 3900 cells/uL [facility] Absolute Monocytes 454 200 - 950 cells/uL [facility] Eosinophils Absolute 59 15 - 500 cells/uL [facility] Basophils Absolute 29 0 - 200 cells/uL [facility] Granulocytes % 53 % [facility] Lymphocytes % 34.1 % [facility] Monocytes % 10.8 % [facility] Eosinophils % 1.4 % [facility] Basophils % 0.7 % [facility] Comment: Test Performed at: [employer] [address] ??[phone] ASPEN HOLLINGSWORTH DO,MPH 10/20/2019 7:38 AM ACCREDITED LEGAL SECRETARY 10/20/2019 7:39 AM ACCREDITED LEGAL SECRETARY Perez Cervantes MD LAB - HEMATOLOGY JUVENTINO SAMAYOA Performing Organization Address [facility] Co de Phone Number [facility] [address] [place] [phone] * URINALYSIS W/MICROSCOPIC REFLEX TO CULTURE (10/20/2019 7:38 AM ACCREDITED LEGAL SECRETARY) Color UA DARK YELLOW YELLOW [facility] Appearance CLEAR CLEAR [facility] Specific Cassel UA 1.023 1.001 - 1.035 [facility] pH UA 6.5 [...] SEEN /LPF [facility] Comment: Test Performed at: [employer] [address] [place] [address] ??[phone] ASEPN HOLLINGSWORTH DO,MPH Reflexive Urine Culture NO CULTURE INDICATED [facility] Comment: REPORT COMMENT: FASTING:YES Test Performed at: [employer] [address] ??[phone] ASPEN HOLLINGSWORTH DO,MPH 10/20/2019 7:38 AM ACCREDITED LEGAL SECRETARY 10/20/2019 7:39 AM ACCREDITED LEGAL SECRETARY Perez Cervantes MD LAB - URINALYSIS ORD ERABLES [facility] [address] [place] [phone] documented in this encounter Visit Diagnoses Not on filedocumented in this encounter Care Teams Framing Inspector Relationship Specialty Start Date End Date Jaspreet Pearl MD PCP - General 08/08/18 03/26/24 documented as of this encounter
--- OUTSIDE RECORDS SUMMARY | 2024-11-13 17:08 | XMS_ITS | Encounter Summary ---
Author Organization [facility] Address [address] [facility] [place] [address] Care Team Providers Care Field Map Technician Name Role Phone Toney Munroe MD Primary Care Provider Encounter Details Date Type Department Care Team (Late Contact Info) Description 05/13/2018 Orders Only [facility] Rheumatology [facility] [place] [address] Katina Blankenship, RN Encounter for therapeutic drug [...] Description 03/27/2025 1:00 PM CDT Office Visit [facility] - Rheumatology [address] [place] [address], [facility] [place] [address] Perez Cervantes MD [address] [place] [address] [place] [address] documented as of this encounter Procedures Procedure Name Priority Date/Time Associated Diagnosis Comments CBC W AUTO DIFFERENTIAL Routine 06/01/2018 8:49 AM CDT Encounter for therapeutic drug monitoring Encounter for long-term (current) use of medications Polyarthritis Primary osteoarthritis involving multiple joints documented in this encounter Results * CBC W AUTO DIFFERENTIAL (06/01/2018 8:49 AM CDT) White Blood Cell Count 5.6 3.8 - 10.8 Thousand/u L [facility] RBC 4.26 3.80 - 5.10 Million/uL [facility] Hemoglobin 12.6 11.7 - 15.5 g/dL [facility] Hematocrit 38.8 35.0 - 45.0 % [facility] MCV 91.1 80.0 - 100.0 fL [facility] MCH 29.6 27.0 - 33.0 pg [facility] MCHC 32.5 32.0 - 36.0 g/dL [facility] RDW 14.3 11.0 - 15.0 % [facility] Platelet Count 196 140 - 400 Thousand/u L [facility] MPV 11.1 7.5 - 12.5 fL [facility] Neutrophil Absolute 3657 1500 - 7800 cells/uL [facility] Lymphocytes Absolute 1305 850 - 3900 cells/uL [facility] Absolute Monocytes 543 200 - 950 cells/uL [facility] Eosinophils Absolute 73 15 - 500 cells/uL [facility] Basophils Absolute 22 0 - 200 cells/uL [facility] Granulocytes % 65.3 % [facility] Lymphocytes % 23.3 % [facility] Monocytes % 9.7 % [facility] Eosinophils % 1.3 % [facility] Basophils % 0.4 % [facility] Comment: REPORT COMMENT: FASTING:YES Test Performed at: [employer] [address] ??[phone] ASPEN HOLLINGSWORTH DO,MPH Blood BLOOD SPECIMEN / Unknown 06/01/2018 8:49 AM CDT 06/01/2018 8:52 AM CDT Perez Cervantes MD LAB - HEMATOLOGY ORD ERABLES [facility] [address] [place] [address] documented in this encounter Visit Diagnoses Diagnosis Encounter for therapeutic drug monitoring Encounter for long-term (current) use of medications Encounter for long-term (current) use of other medications Polyarthritis Unspecified polyarthropathy or polyarthritis, site unspecified Primary osteoarthritis involving multiple joints documented in this encounter Care Teams Field Map Technician Relationship Specialty Start Date End Date Toney Munroe MD PCP - General Family Medicine 02/10/16 07/28/18 documented as of this encounter
--- OUTSIDE RECORDS SUMMARY | 2024-11-13 17:08 | XMS_ITS | Encounter Summary ---
Author Organization [facility] Address [address] [facility] [place] [address] Care Team Providers Care Windlasser Name Role Phone Jaspreet Pearl MD Primary Care Provider + Reason for Visit * Reason Comments Refill Request Encounter Details Date Type Department Care Team (Late Contact Info) Description 02/01/2019 Refill [facility] [address] [place] [address] Perez Cervantes MD [address] [place] [address] [address] [facility] [place] [address] Refill Request Social History Tobacco Use Types [...] Visit [facility] - Rheumatology [address] [place] [address], [place] [phone] Perez Cervantes MD [address] [place] [address] 2[address] [place] [phone] documented as of this encounter Visit Diagnoses Not on filedocumented in this encounter Care Teams Windlasser Relationship Specialty Start Date End Date Jaspreet Pearl MD PCP - General 08/08/18 03/26/24 documented as of this encounter
--- OUTSIDE RECORDS SUMMARY | 2024-11-13 17:08 | XMS_ITS | Encounter Summary ---
Author Organization [facility] Address [address] [facility] [place] [address] Care Team Providers Care Digital Marketing Intern Name Role Phone Jaspreet eParl MD Primary Care Provider + Reason for Visit * Reason Onset Date Comments General 02/03/2019 Enbrel syringe P A--approved Encounter Details Date Type Department Care Team (Late st Contact Info) Description 02/03/2019 Telephone [facility] [address] [place] [address] Katina Blankenship, RN General (Enbrel syringe PA--approved) Social History Tobacco Use Types Packs/Day Years [...] encounter Miscellaneous Notes * Telephone Encounter - Katina Blankenship - 02/03/2019 12:22 PM CDT Fax received from [employer] approving Enbrel 50 mg syringes on behalf of [facility] from 02/02/2019 through 02/03/2020; ; case ID [id number]. documented in this encounter Plan of Treatment Upcoming Encounters Date Type Department Care Team (Late st Contact Info) Description 03/27/2025 1:00 PM CDT Office Visit [facility]ology [facility] [facility], [place] [phone] Perez Cervantes MD [facility] 2L [place] [phone] documented as of this encounter Visit Diagnoses Not on filedocumented in this encounter Care Teams Digital Marketing Intern Relationship Specialty Start Date End Date Jaspreet Pearl MD PCP - General 08/08/18 03/26/24 documented as of this encounter
--- OUTSIDE RECORDS SUMMARY | 2024-11-13 17:08 | XMS_ITS | Encounter Summary ---
Author Organization [facility] Address [address] [facility] [place] [address] Care Team Providers Care Contract Administrator Name Role Phone Toney Munroe MD Primary Care Provider [phone] Encounter Details Date Type Department Care Team (Latest Contact Info) Description 01/31/2018 Hospital Outpatient Visit Historic [facility] [address] [place] [phone] Perez Cervantes MD [address] [place] [address] 2L [place] [address] Discharge Disposition: Home or Self Care Social [...] [facility]5 [facility], [place] [phone] Perez Cervantes MD [address] [place] [address] 2L [place] [phone] documented as of this encounter Procedures Procedure Name Priority Date/Time Associated Diagnosis Comments XR KNEE RIGHT 3VW Routine 01/31/2018 1:3 0 PM CDT XR KNEE LEFT 3VW Routine 01/31/2018 1:30 PM CDT documented in this encounter Results * XR KNEE RIGHT 3VW (01/31/2018 1:30 PM CDT) Anatomical Region Laterality Modality Lower Extremity Other Impressions 02/01/2018 8:28 AM CDT IMPRESSION: No acute fracture or dislocation identified. No significant arthritis. Dictated by Rashard Brewster MD (medical transcription radiology). Dr. ANA LUISA Osorio M.D. have [...] significant arthritis. Dictated by Rashard Brewster MD (medical transcription radiology). Dr. ANA LUISA Osorio M.D. have [...] significant arthritis. Dictated by Rashard Brewster MD (medical transcription radiology). Dr. ANA LUISA Osorio M.D. have [...] significant arthritis. Dictated by Rashard Brewster MD (medical transcription radiology). Dr. ANA LUISA Osorio M.D. have personally reviewed and interpreted thisexamination/study. This report was electronically signed by ANA LUISA KAUFMAN M.D. on 02/01/20188:28 AM . Perez Cervantes MD DIAGNOSTIC IMAGING O RDERABLES documented in this encounter Visit Diagnoses Diagnosis Encounter for therapeutic drug level monitoring Encounter for therapeutic drug monitoring Polyarthritis Unspecified polyarthropathy or polyarthritis, site unspecified documented in this encounter Care Teams Contract Administrator Relationship Specialty Start Date End Date Toney Munroe MD PCP - General Family Medicine 02/10/16 07/28/18 documented as of this encounter
--- OUTSIDE RECORDS SUMMARY | 2024-11-13 17:08 | XMS_ITS | Encounter Summary ---
Author Organization [facility] Address [address] [place] [address] Care Team Providers Care Body And Fender Mechanic Name Role Phone Jaspreet Pearl MD Primary Care Provider + Encounter Details Date Type Department Care Team (Late Contact Info) Description 02/03/2019 Orders Only [facility] [address] [place] [address] Perez Cervantes MD [address] [place] [address] 2L [place] [phone] Polyarthritis; Encounter for therapeutic drug monitoring Social [...] Office Visit [facility] Rhe[facility]ology [address] [place] [address], [place] [phone] Perez Cervantes MD [address] [place] [address] 2[address] [place] [phone] documented as of this encounter Visit Diagnoses Diagnosis Polyarthritis Unspecified polyarthropathy or polyarthritis, site unspecified Encounter for therapeutic drug monitoring documented in this encounter Care Teams Body And Fender Mechanic Relationship Specialty Start Date End Date Jaspreet Pearl MD PCP - General 08/08/18 03/26/24 documented as of this encounter
--- OUTSIDE RECORDS SUMMARY | 2024-11-13 17:08 | XMS_ITS | Encounter Summary ---
Author Organization [facility] Address [address] [facility] [place] [address] Care Team Providers Care Program Eligibility Specialist Name Role Phone Toney Munroe MD Primary Care Provider Encounter Details Date Type Department Care Team (Late Contact Info) Description 07/08/2018 Orders Only [facility] [address] [place] [address] Perez Cervantes MD [address] [place] [address] 2L [place] [address] Polyarthritis; Encounter for therapeutic drug [...] Office Visit [facility]ology [address] [place] [address], [facility] [place] [address] Perez Cervantes MD [address] [place] [address] 2[address] [place] [phone] documented as of this encounter Visit Diagnoses Diagnosis Polyarthritis Unspecified polyarthropathy or polyarthritis, site unspecified Encounter for therapeutic drug monitoring documented in this encounter Care Teams Program Eligibility Specialist Relationship Specialty Start Date End Date Toney Munroe MD PCP - General Family Medicine 02/10/16 07/28/18 documented as of this encounter
--- OUTSIDE RECORDS SUMMARY | 2024-11-13 17:08 | XMS_ITS | Encounter Summary ---
Author Organization [facility] Address [address] [facility] [place] [address] Care Team Providers Care Equipment Validation Engineer Name Role Phone Toney Munroe MD Primary Care Provider Encounter Details Date Type Department Care Team (Late Contact Info) Description 06/01/2018 Orders Only [facility] [address] [place] [address] Perez Cervantes MD [address] [place] [address] 2L [place] [address] Polyarthritis ; Encounter for therapeutic [...] Office Visit [facility] [address] [place] [address], [facility] [place] [address] Perez Cervantes MD [address] [place] [address] 2L [place] [address] documented as of this encounter Procedures Procedure Name Priority Date/Time Associated Diagnosis Comments C-REACTIVE PROTEIN Routine 06/01/2018 8: 49 AM CDT Polyarthritis Encounter for therapeutic drug monitoring ERYTHROCYTE SEDIMENTATION RATE Routine 06/01/2018 8:49 AM CDT Polyarthritis Encounter for therapeutic drug monitoring COMPREHENSIVE METABOLIC PANEL Routine 06/01/2018 8:49 AM CDT Polyarthritis Encounter for therapeutic drug monitoring documented in this encounter Results * ERYTHROCYTE SEDIMENTATION RATE (06/01/2018 8:49 AM CDT) Erythrocyte Sedimentation Rate Westergren 19 < OR = 30 mm/h [facility] Comment: REPORT COMMENT: FASTING:YES Test Performed at: [facility] ??[phone] NAVID SCOTT MD Blood BLOOD SPECIMEN / Unknown 06/01/2018 8:49 AM CDT 06/01/2018 8:52 AM CDT Perez Cervantes MD LAB - HEMATOLOGY ORD ERABLES Performing Organization Address [facility] Co de Phone Number [address] [address] * C-REACTIVE PROTEIN (06/01/2018 8:49 AM CDT) C-Reactive Protein 4.1 <8.0 mg/L [facility] Comment: REPORT COMMENT: FASTING:YES Test Performed at: [facility] [address] ??[phone] ASPEN HOLLINGSWORTH DO,MPH Blood BLOOD SPECIMEN / Unknown 06/01/2018 8:49 AM CDT 06/01/2018 8:52 AM CDT Perez Cervantes MD LAB - CHEMISTRY GERA DAVID Performing Organization Address [facility] Co de Phone Number [address] [address] * COMPREHENSIVE METABOLIC PANEL (06/01/2018 8:49 AM CDT) Glucose 90 65 - 99 mg/dL [facility] Comment: ? Fasting reference interval BUN 14 7 - 25 mg/dL [facility] Creatinine 0.82 0.50 - 1.05 mg/dL [facility] Comment: For patients >49 years of age, the reference limit for Creatinine is approximately 13% higher for people identified as -Canadian. eGFR by MDRD 81 > OR = 60 mL/min/1 .73m2 [facility] eGFR by MDRD 93 > OR = 60 mL/min/1 .73m2 [facility] BUN/Creatinine Ratio NOT APPLICABLE 6 - 22 (calc) [facility] Sodium 139 135 - 146 mmol/L [facility] Potassium 4.1 3.5 - 5.3 mmol/L [facility] Chloride 103 98 - 110 mmol/L [facility] CO2 25 20 - 31 mmol/L [facility] Calcium 9.7 8.6 - 10.4 mg/dL [facility] Protein Total 7.6 6.1 - 8.1 g/dL [facility] Albumin 4.5 3.6 - 5.1 g/dL [facility] Globulin Total 3.1 1.9 - 3.7 g/dL (calc) [facility] Albumin/Globulin Ratio 1.5 1.0 - 2.5 (calc) [facility] Bilirubin Total 0.4 0.2 - 1.2 mg/dL [facility] Alkaline Phosphatase 96 33 - 130 U/L [facility] AST 19 10 - 35 U/L [facility] ALT 16 6 - 29 U/L [facility] Comment: REPORT COMMENT: FASTING:YES Test Performed at: [facility] ??[phone] ASPEN HOLLINGSWORTH DO,MPH Blood BLOOD SPECIMEN / Unknown 06/01/2018 8:49 AM CDT 06/01/2018 8:52 AM CDT Perez Cervantes MD LAB - CHEMISTRY GERA DAVID [facility] Organization Address City/State/[facility] Co de Phone Number [facility] [address] [place] [address] documented in this encounter Visit Diagnoses Diagnosis Polyarthritis- Primary Unspecified polyarthropathy or polyarthritis, site unspecified Encounter for therapeutic drug monitoring documented in this encounter Care Teams Equipment Validation Engineer Relationship Specialty Start Date End Date Toney Munroe MD PCP - General Family Medicine 02/10/16 07/28/18 documented as of this encounter
--- OUTSIDE RECORDS SUMMARY | 2024-11-13 17:08 | XMS_ITS | Encounter Summary ---
Author Organization [facility] Address [address] [facility] [place] [address] Care Team Providers Care Shop Hand Name Role Phone Clement Young MD Primary Care Provider [phone] Jaspreet Pearl MD Primary Care Provider + Encounter Details Date Type Department Care Team (Late st Contact Info) Description 08/05/2018 Orders Only [facility] [address] [place] [address] Katnia Blankenship RN Encounter for therapeutic drug monitoring; Encounter [...] Office Visit [facility] [address] [place] [address], [facility] [place] [phone] Perez Cervantes MD [address] [place] [address] [place] [phone] documented as of this encounter Visit Diagnoses Diagnosis Encounter for therapeutic drug monitoring Encounter for long-term (current) use of medications Encounter for long-term (current) use of other medications Polyarthritis Unspecified polyarthropathy or polyarthritis, site unspecified Primary osteoarthritis involving multiple joints documented in this encounter Care Teams Shop Hand Relationship Specialty Start Date End Date Clement Young MD PCP - General 07/29/18 08/07/18 Jaspreet Pearl MD PCP - General 08/08/18 03/26/24 documented as of this encounter
--- OUTSIDE RECORDS SUMMARY | 2024-11-13 17:08 | XMS_ITS | Encounter Summary ---
Author Organization [facility] Address [address] [facility] [place] [address] Care Team Providers Care Paper Box Cutter Name Role Phone Toney Munroe MD Primary Care Provider Encounter Details Date Type Department Care Team (Late Contact Info) Description 05/06/2018 Orders Only [facility] [address] [place] [address] Perez Cervantes MD [address] [place] [address] 2L [place] [address] Encounter for therapeutic drug monitoring; [...] Office Visit [facility] [address] [place] [address], [facility] [place] [address] Perez Cervantes MD [address] [place] [address] 2L [place] [phone] documented as of this encounter Visit Diagnoses Diagnosis Encounter for therapeutic drug monitoring Polyarthritis Unspecified polyarthropathy or polyarthritis, site unspecified documented in this encounter Care Teams Paper Box Cutter Relationship Specialty Start Date End Date Toney Munroe MD PCP - General Family Medicine 02/10/16 07/28/18 documented as of this encounter
--- OUTSIDE RECORDS SUMMARY | 2024-11-13 17:08 | XMS_ITS | Encounter Summary ---
Author Organization [facility] Address [address] [facility] [place] [address] Care Team Providers Care Support Services Coordinator Name Role Phone Jaspreet Pearl MD Primary Care Provider + Reason for Visit * Reason Comments Follow-up Polyarthritis Encounter Details Date Type Department Care Team (Late st Contact Info) Description 12/05/2018 1:30 PM BATTER OUT Office Visit [facility] [address] [place] [address] Perez Cervantes MD [address] [place] [address] Encounter for therapeutic drug monitoring (Primary Dx); [...] Sign Reading Time Taken Comments Blood Pressure 108/72 12/05/2018 1:25 PM BATTER OUT Pulse 64 12/05/2018 1:25 PM BATTER OUT Temperature 36.4 ??C (97.5 ??F) 12/05/2018 1:25 PM CS T Respiratory Rate - - Oxygen Saturation - - Inhaled Oxygen Concentration - - Weight 75.3 kg (166 lb) 12/05/2018 1:25 PM BATTER OUT Height 172.7 cm (5' 8 ) 12/05/2018 1:25 PM BATTER OUT Body Mass Index 25.24 12/05/2018 1:25 PM BATTER OUT documented in this encounter Progress Notes * Perez Cervantes MD - 12/05/2018 2:02 PM CST (Prob #1) Polyarthritis (Abs negative) (Prob #2) [facility]) Recent Labs Component Name 11/17/18 0853 08/12/18 0735 06/01/18 0849 01/07/18 0744 10/22/17 0734 08/13/17 0734 WBC 5.0 5.2 5.6 - 4.4 4.3 3.7* RBC 4.16 4.37 4.26 - 4.14 4.33 4.31 HGB 12.7 13.1 12.6 - 12.5 13.1 13.0 HCT 38.1 39.4 38.8 - 37.8 40.0 39.4 MCV 91.6 90.2 91.1 - 91.3 92.4 91.4 MCHC 33.3 33.2 32.5 - 33.1 32.8 33.1 PLTCOUNT 213 221 196 - - - - NEUTPCT - - - - 55.7 60.3 65.4 NEUTABS - - - - 2451 2593 2420 - = values in this interval not displayed. ESR 16; CRP 0.49; UA WNL; Recent Labs Component Name 11/17/18 0853 08/12/18 0735 06/01/18 0849 SODIUM 141 138 139 POTASSIUM 4.3 3.8 4.1 CHLORIDE 106 103 103 CO2 28 25 25 BUN 17 14 14 CREATININE 0.75 0.71 0.82 GLUCOSE 87 86 90 CALCIUM 9.4 9.5 9.7 ALT 29 20 16 ALKPHOS 89 89 96 AST 24 20 19 TBIL 0.5 0.6 0.4 TPROT 7.1 7.5 7.6 EGFR 90 96 81 CXR/Quant Gold Negative in July (Subj) Patient remains on 50 mg Enbrel SQ/week, 20 mg MTX/week, 1 mg FA/d, and 1 g Nabumtome bid+ other meds. Mild AM stiffness. Patient having anxiety and father one month ago from liver failure. Mild sicca complaints and remains on Xidra. Eye exam improved. No rashes, mucosal ulcers, or systemic complaints. No more problems with Dental implants. No more URIs. Rest of ROS negative. Past/Social/Family History reviewed. (Obj) BP 108/72 (BP SITE: LEFT ARM, BP POSITION: SITTING, BP CUFF SIZE: 11) Pulse 64 Temp 97.5 ??F (36.4 ??C) (Oral) Ht 5' 8 (1.727 m) Wt 166 lb (75.3 kg) BMI 25.24 kg/m2 (Skin) No rashes or eruptions (HEENT) No mucosal ulcers. Moist membranes.No parotid fullness; (Neck) No adenopathy/thyromegaly (Back) No CVA/LS/SI tenderness; (General) Unremarkable (Extrem) HNs DIPs/BNs 5th PIPs/USP prominence; 1-4th MCPs SfT1; No other synovitis UE/LE except 2-4th MTPs SfT1; No donta synovitis. MS= bilat; (Assess) Stable (plan) Continue same meds with labs q 6-8 weeks. RTO in 6 months. Perez Cervantes MD, FACP, FAAP, MACR [employer] [facility] Pediatric Rheumatology Professor of Internal Medicine,Pediatrics, and Molecular Immunology [facility] OUT documented in this encounter Plan of Treatment Upcoming Encounters Date Type Department Care Team (Late st Contact Info) Description 03/27/2025 1:00 PM CDT Office Visit [facility] [address] [place] [address], [place] [address] Perez Cervantes MD [address] [place] [address] [place] [address] documented as of this encounter Visit Diagnoses Diagnosis Encounter for therapeutic drug monitoring- Primary Polyarthritis Unspecified polyarthropathy or polyarthritis, site unspecified documented in this encounter Care Teams Support Services Coordinator Relationship Specialty Start Date End Date Jaspreet Pearl MD [phone] (work) PCP - General 08/08/18 03/26/24 documented as of this encounter
--- OUTSIDE RECORDS SUMMARY | 2024-11-13 17:08 | XMS_ITS | Encounter Summary ---
Author Organization [facility] Address [address] [place] [address] Care Team Providers Care Pharmacy Tech Name Role Phone Jaspreet Pearl MD Primary Care Provider + Encounter Details Date Type Department Care Team (Late Contact Info) Description 04/28/2019 Orders Only [facility] [address] [place] [address] Perez Cervantes MD [address] [place] [address] 2L [place] [address] Polyarthritis; Encounter for therapeutic drug monitoring Social [...] Office Visit [facility] [address] [place] [phone] Perez Cervantes MD [address] [place] [address] 2L [place] [address] documented as of this encounter Visit Diagnoses Diagnosis Polyarthritis Unspecified polyarthropathy or polyarthritis, site unspecified Encounter for therapeutic drug monitoring documented in this encounter Care Teams Pharmacy Tech Relationship Specialty Start Date End Date Jaspreet Pearl MD PCP - General 08/08/18 03/26/24 documented as of this encounter
--- OUTSIDE RECORDS SUMMARY | 2024-11-13 17:08 | XMS_ITS | Encounter Summary ---
Author Organization [facility] Address [address] [facility] [address] Care Team Providers Care Skills Instructor Name Role Phone Clement Young MD Primary Care Provider [phone] Encounter Details Date Type Department Care Team (Late Contact Info) Description 07/29/2018 Orders Only [facility] [address] [place] [address] Perez Cervantes MD [address] [place] [address] 2L [place] [address] Encounter for therapeutic drug monitoring; [...] Office Visit [facility] [address] [place] [address], [facility] [place] [address] Perez Cervantes MD [address] [place] [address] 2L [place] [address] documented as of this encounter Visit Diagnoses Diagnosis Encounter for therapeutic drug monitoring Polyarthritis Unspecified polyarthropathy or polyarthritis, site unspecified documented in this encounter Care Teams Skills Instructor Relationship Specialty Start Date End Date Clement Young MD PCP - General 07/29/18 08/07/18 documented as of this encounter
--- OUTSIDE RECORDS SUMMARY | 2024-11-13 17:08 | XMS_ITS | Encounter Summary ---
Author Organization [facility] Address [address] [facility] [place] [address] Care Team Providers Care Seismometer Operator Name Role Phone Toney Munroe MD Primary Care Provider Encounter Details Date Type Department Care Team (Latest Contact Info) Description 08/02/2017 Hospital Outpatient Visit [facility] [address] [place] [phone] Perez Cervantes MD [address] [place] [address] 2L [place] [address] Discharge Disposition: Home or Self Care Social [...] Visit [facility] [address] [facility], [place] [phone] Perez Cervantes MD [address] [place] [address] 2L [place] [phone] documented as of this encounter Visit Diagnoses Not on filedocumented in this encounter Care Teams Seismometer Operator Relationship Specialty Start Date End Date Toney Munroe MD PCP - General Family Medicine 02/10/16 07/28/18 documented as of this encounter
--- OUTSIDE RECORDS SUMMARY | 2024-11-13 17:08 | XMS_ITS | Encounter Summary ---
Author Organization [facility] Address [address] [place] [address] Care Team Providers Care Process Lead Name Role Phone Jaspreet Pearl MD Primary Care Provider + Encounter Details Date Type Department Care Team (Late Contact Info) Description 09/16/2018 Orders Only [facility] [address] [place] [address] Perez Cervantes MD [address] [place] [address] 2L DIV [place] [address] Polyarthritis; Encounter for therapeutic drug [...] Visit [facility] [address] [place] [address], [facility] [place] [phone] Perez Cervantes MD [address] [place] [address] 2L DIV [place] [address] documented as of this encounter Visit Diagnoses Diagnosis Polyarthritis Unspecified polyarthropathy or polyarthritis, site unspecified Encounter for therapeutic drug monitoring documented in this encounter Care Teams Process Lead Relationship Specialty Start Date End Date Jaspreet Pearl MD PCP - General 08/08/18 03/26/24 documented as of this encounter
--- OUTSIDE RECORDS SUMMARY | 2024-11-13 17:08 | XMS_ITS | Encounter Summary ---
Author Organization [facility] Address [address] [place] [address] Care Team Providers Care Assistant Commissioner Name Role Phone Toney Munroe MD Primary Care Provider [phone] Reason for Visit * Reason Comments Refill Request Encounter Details Date Type Department Care Team (Late st Contact Info) Description 06/04/2018 Refill [facility] [address] [place] [address] Perez Cervantes MD [address] [place] [address] 2L [place] [address] Refill Request Social History Tobacco [...] Visit [facility] [address] [place] [address], [facility] [place] [address] Perez Cervantes MD [address] [place] [address] 2L [place] [address] documented as of this encounter Visit Diagnoses Not on filedocumented in this encounter Care Teams Assistant Commissioner Relationship Specialty Start Date End Date Toney Munroe MD PCP - General Family Medicine 02/10/16 07/28/18 documented as of this encounter
--- OUTSIDE RECORDS SUMMARY | 2024-11-13 17:08 | XMS_ITS | Encounter Summary ---
Author Organization [facility] Address [address] [facility] [place] [address] Care Team Providers Care Kennel Worker Name Role Phone Jaspreet Pearl MD Primary Care Provider + Encounter Details Date Type Department Care Team (Late Contact Info) Description 07/07/2019 Orders Only [facility] [address] [place] [address] Perez Cervantes MD [address] [place] [address] 2L [place] [address] Polyarthritis; Encounter for therapeutic drug [...] Visit [facility] [address] [place] [address], [place] [phone] Perez Cervantes MD [address] [place] [address] 2L [place] [address] documented as of this encounter Visit Diagnoses Diagnosis Polyarthritis Unspecified polyarthropathy or polyarthritis, site unspecified Encounter for therapeutic drug monitoring documented in this encounter Care Teams Kennel Worker Relationship Specialty Start Date End Date Jaspreet Pearl MD PCP - General 08/08/18 03/26/24 documented as of this encounter
--- OUTSIDE RECORDS SUMMARY | 2024-11-13 17:08 | XMS_ITS | Encounter Summary ---
Author Organization [facility] Address [address] [facility] [place] [address] Care Team Providers Care Hotel Attendant Name Role Phone Jaspreet Pearl MD Primary Care Provider + Encounter Details Date Type Department Care Team (Late Contact Info) Description 09/30/2018 Orders Only [facility] [address] [place] [address] Perez Cervantes MD [address] [place] [address] 2L [place] [address] Polyarthritis; Encounter for therapeutic drug [...] Office Visit [facility] [address] [place] [address], [facility] [place] [phone] Perez Cervantes MD [address] [place] [address] 2L [place] [phone] documented as of this encounter Visit Diagnoses Diagnosis Polyarthritis Unspecified polyarthropathy or polyarthritis, site unspecified Encounter for therapeutic drug monitoring documented in this encounter Care Teams Hotel Attendant Relationship Specialty Start Date End Date Jaspreet Pearl MD PCP - General 08/08/18 03/26/24 documented as of this encounter
--- OUTSIDE RECORDS SUMMARY | 2024-11-13 17:08 | XMS_ITS | Encounter Summary ---
Author Organization [facility] Address [address] [place] [place] [address] Care Team Providers Care Speech Therapist Early Intervention Name Role Phone Jaspreet Pearl MD Primary Care Provider + Encounter Details Date Type Department Care Team (Late Contact Info) Description 09/02/2018 Orders Only [facility] Rheumatology [address] [place] [address] Katina Blankenship RN Encounter for therapeutic drug monitoring; [...] [facility] [address] [place] [address], [facility] [place] [address] Perez Cervantes MD [address] [place] [address] [place] [address] documented as of this encounter Visit Diagnoses Diagnosis Encounter for therapeutic drug monitoring Encounter for long-term (current) use of medications Encounter for long-term (current) use of other medications Polyarthritis Unspecified polyarthropathy or polyarthritis, site unspecified Primary osteoarthritis involving multiple joints documented in this encounter Care Teams Speech Therapist Early Intervention Relationship Specialty Start Date End Date Jaspreet Pearl MD PCP - General 08/08/18 03/26/24 documented as of this encounter
--- OUTSIDE RECORDS SUMMARY | 2024-11-13 17:08 | XMS_ITS | Encounter Summary ---
Author Organization [facility] Address [address] [facility] [place] [address] Care Team Providers Care Service Porter Name Role Phone Jaspreet Pearl MD Primary Care Provider + Reason for Visit * Reason Onset Date Comments MEDICATION REFILL 01/25/2019 MEDICATION REFILL 10/05/2019 Encounter Details Date Type Department Care Team (Late Contact Info) Description 01/25/2019 Refill [facility] [address] [place] [address] Perez Cervantes MD [address] [place] [address] [address] [facility] [place] [phone] MEDICATION REFILL; MEDICATION REFILL Social History Tobacco Use Types [...] Visit [facility] [address] [place] [address], [place] [phone] Perez Cervantes MD [address] [place] [address] 2[address] [place] [phone] documented as of this encounter Visit Diagnoses Not on filedocumented in this encounter Care Teams Service Porter Relationship Specialty Start Date End Date Jaspreet Pearl MD PCP - General 08/08/18 03/26/24 documented as of this encounter
--- OUTSIDE RECORDS SUMMARY | 2024-11-13 17:08 | XMS_ITS | Encounter Summary ---
Author Organization [facility] Address [address] [facility] [place] [address] Care Team Providers Care Pill Maker Name Role Phone Toney Munroe MD Primary Care Provider Encounter Details Date Type Department Care Team (Late Contact Info) Description 07/08/2018 Orders Only [facility] Rheumatology [facility] [place] [address] Katina Blankenship, RN Encounter for therapeutic drug [...] Description 03/27/2025 1:00 PM CDT Office Visit [facility] - Rheumatology [address] [place] [address], [facility] [place] [phone] Perez Cervantes MD [address] [place] [address] [place] [address] documented as of this encounter Visit Diagnoses Diagnosis Encounter for therapeutic drug monitoring Encounter for long-term (current) use of medications Encounter for long-term (current) use of other medications Polyarthritis Unspecified polyarthropathy or polyarthritis, site unspecified Primary osteoarthritis involving multiple joints documented in this encounter Care Teams Pill Maker Relationship Specialty Start Date End Date Toney Munroe MD PCP - General Family Medicine 02/10/16 07/28/18 documented as of this encounter
--- OUTSIDE RECORDS SUMMARY | 2024-11-13 17:08 | XMS_ITS | Encounter Summary ---
Author Organization [facility] Address [address] [facility] [place] [address] Care Team Providers Care Real Estate Manager Name Role Phone Toney Munroe MD Primary Care Provider [phone] Clement Young MD Primary Care Provider [phone] Jaspreet Pearl MD Primary Care Provider + Reason for Visit * Reason Onset Date Comments Medication Issue 05/05/2018 Encounter Details Date Type Department Care Team (Late st Contact Info) Description 05/05/2018 Telephone [facility] [address] [place] [address] Perez Cervantes MD [facility] [place] [address] Medication Issue Social History Tobacco Use Types Packs/Day Years Used Date Smoking Tobacco: Never Assessed Sex and Gender Information Value Date Recorded Sex Assigned at Not on file Gender Identity Not on file Sexual Orientation Not on file documented as of this encounter Miscellaneous Notes * Telephone Encounter - Emmanuel Abebe MD - 05/06/2018 5:14 PM CDT Called and spoke to patient. Advised to hold enbrel and MTX until antibiotics completed and feelingbetter then ok to resume. 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 She held the Enbrel injection this week but accidentally took MTX (in pill product strategy director) this week. Leaving for [place] on Wednesday the and will still be on abx until Wednesday. Can she take the Enbrelbefore she leaves? Take it with her and inject when she is off the abx? Skip it until she gets back(she will have missed injection x3)? She returns 05/20/18. Please advise.//KB documented in this encounter Plan of Treatment Upcoming Encounters Date Type Department Care Team (Late st Contact Info) Description 03/27/2025 1:00 PM CDT Office Visit [facility] - Rheumatology [address] [place] [address], [place] [phone] Perez Cervantes MD [address] [place] [address] [place] [phone] documented as of this encounter Visit Diagnoses Not on filedocumented in this encounter Care Teams Real Estate Manager Relationship Specialty Start Date End Date Toney Munroe MD PCP - General Family Medicine 02/10/16 07/28/18 Clement Young MD PCP - General 07/29/18 08/07/18 Jaspreet Pearl MD PCP - General 08/08/18 03/26/24 documented as of this encounter
--- OUTSIDE RECORDS SUMMARY | 2024-11-13 17:08 | XMS_ITS | Encounter Summary ---
Author Organization [facility] Address [address] [facility] [place] [address] Care Team Providers Care Journeyman Meat Cutter Name Role Phone Jaspreet Pearl MD Primary Care Provider + Reason for Visit * Reason Onset Date Comments Medication Prior Auth Request 09/05/2018 Ap proved--Enbrel Encounter Details Date Type Department Care Team (Late st Contact Info) Description 09/05/2018 Telephone [facility] Rheumatology [address] [place] [address] Perez Cervantes MD [address] [phone] Medication Prior Auth Request (Approved--Enbrel) Social History Tobacco Use Types Packs/Day Years Used Date Smoking Tobacco: Never Smokeless Tobacco: Never Sex and Gender Information Value Date Recorded Sex Assigned at Not on file Gender Identity Not on file Sexual Orientation Not on file documented as of this encounter Miscellaneous Notes * Telephone Encounter - Lory Collier - 09/05/2018 1:51 PM CDT Received fax confirmation from [facility] approving Enbrel 25 mg Kit for 1 year, through 08/31/2019. However the PA request was for Enbrel 50 mg prefilled syringe. Contacted plan, spoke with [facility] who corrected the PA and updated patient's file. They do not sent the confirmationfrom that office, made a notation on PA. Plan: [id number] documented in this encounter Plan of Treatment Upcoming Encounters Date Type Department Care Team (Late st Contact Info) Description 03/27/2025 1:00 PM CDT Office Visit [facility] - Rheumatology [address] [place] [address], [place] [phone] Perez Cervantes MD [address] [place] [address] [place] [phone] documented as of this encounter Visit Diagnoses Not on filedocumented in this encounter Care Teams Journeyman Meat Cutter Relationship Specialty Start Date End Date Jaspreet Pearl MD PCP - General 08/08/18 03/26/24 documented as of this encounter
--- OUTSIDE RECORDS SUMMARY | 2024-11-13 17:08 | XMS_ITS | Encounter Summary ---
Author Organization [facility] Address [address] [facility] [place] [address] Care Team Providers Care Managing Director Name Role Phone Toney Munroe MD Primary Care Provider [phone] Encounter Details Date Type Department Care Team (Latest Contact Info) Description 08/02/2017 Hospital Outpatient Visit Historic [facility] OUTPATIENT SERVICES [address] [place] [phone] Perez Cervantes MD [address] [place] [address] 2L [place] [phone] Discharge Disposition: Home or Self Care Social [...] Visit [facility] - Rheumatology [address] [place] [address], [place] [phone] Perez Cervantes MD [address] [place] [address] [address] [place] [phone] documented as of this encounter Procedures Procedure Name Priority Date/Time Associated Diagnosis Comments XR CHEST 2VW Routine 08/02/2017 1:51 PM CDT documented in this encounter Results * XR CHEST 2VW (08/02/2017 1:51 PM CDT) Anatomical Region Laterality Modality Chest Other Impressions 08/02/2017 4:26 PM CDT IMPRESSION: No active pulmonary process. Dictated by Brodie Henry MD (radiology physician). Dr. ANA LUISA Osorio M.D. have personally reviewed and interpreted this examination/study. This report was electronically signed by ANA LUISA KAUFMAN M.D. ??on 08/02/2017 4:26 PM . Narrative 08/02/2017 4:26 PM CDT EXAMINATION: XR CHEST PA AND LATERAL HISTORY: Monitoring Biologic COMPARISON: Comparison is made with a study from 08/03/2016. FINDINGS: There is no focal consolidation, pleural effusion, or pneumothorax. The cardiomediastinal silhouette is normal. Calcified lymph nodes are seen at the left hilum consistent with old healed granulomatous disease. The visible bony thorax is intact. Mild degenerative changes are again noted in the thoracic spine. Procedure Note Ana Luisa Kaufman MD - 02/11/2018 EXAMINATION: XR CHEST PA AND LATERAL HISTORY: Monitoring Biologic COMPARISON: Comparison is made with a study from 08/03/2016. FINDINGS: There is no focal consolidation, pleural effusion, or pneumothorax. Thecardiomediastinal silhouette is normal. Calcified lymph nodes are seen atthe left hilum consistent with old healed granulomatous disease. Thevisible bony thorax is intact. Mild degenerative changes are again noted in the thoracic spine. IMPRESSION IMPRESSION: No active pulmonary process. Dictated by Brodie Henry MD (radiology physician). Dr. ANA LUISA Osorio M.D. have personally reviewed and interpreted thisexamination/study. This report was electronically signed by ANA LUISA KAUFMAN M.D. on 08/02/20174:26 PM . Perez Cervantes MD DIAGNOSTIC IMAGING O RDERABLES documented in this encounter Visit Diagnoses Diagnosis Polyarthritis Unspecified polyarthropathy or polyarthritis, site unspecified Encounter for therapeutic drug level monitoring Encounter for therapeutic drug monitoring documented in this encounter Care Teams Managing Director Relationship Specialty Start Date End Date Toney Munroe MD PCP - General Family Medicine 02/10/16 07/28/18 documented as of this encounter
--- OUTSIDE RECORDS SUMMARY | 2024-11-13 17:08 | XMS_ITS | Encounter Summary ---
Author Organization [facility] Address [address] [facility] [place] [address] Care Team Providers Care Lead C Developer Name Role Phone Toney Munroe MD Primary Care Provider Encounter Details Date Type Department Care Team (Late Contact Info) Description 03/25/2018 Orders Only [facility] [address] [place] [address] Perez Cervantes MD [address] [place] [address] [address] [place] [address] Encounter for therapeutic drug monitoring; [...] Visit [facility] - Rheumatology [address] [place] [address], [facility] [place] [phone] Perez Cervantes MD [address] [place] [address] [address] [place] [phone] documented as of this encounter Visit Diagnoses Diagnosis Encounter for therapeutic drug monitoring Polyarthritis Unspecified polyarthropathy or polyarthritis, site unspecified documented in this encounter Care Teams Lead C Developer Relationship Specialty Start Date End Date Toney Munroe MD PCP - General Family Medicine 02/10/16 07/28/18 documented as of this encounter
--- OUTSIDE RECORDS SUMMARY | 2024-11-13 17:09 | XMS_ITS | Encounter Summary ---
Author Organization [facility] Address [address] [facility] [place] [address] Care Team Providers Care Pickle Sorter Name Role Phone Toney Munroe MD Primary Care Provider Encounter Details Date Type Department Care Team (Latest Contact Info) Description 08/13/2014 Hospital Outpatient Visit Historic [facility] OUTPATIENT SERVICES [address] [place] [phone] Perez Cervantes MD [address] [place] [address] [address] [place] [phone] Discharge Disposition: Home or Self Care Social [...] Visit [facility] - Rheumatology [address] [facility], [place] [phone] Perez Cervantes MD [address] [place] [address] [address]L [place] [phone] documented as of this encounter Visit Diagnoses Not on filedocumented in this encounter Care Teams Pickle Sorter Relationship Specialty Start Date End Date Toney Munroe MD PCP - General Family Medicine 02/10/16 07/28/18 documented as of this encounter
--- OUTSIDE RECORDS SUMMARY | 2024-11-13 17:09 | XMS_ITS | Encounter Summary ---
Author Organization [facility] Address [address] [facility] [place] [address] Care Team Providers Care Site Administrator Name Role Phone Toney Munroe MD Primary Care Provider Encounter Details Date Type Department Care Team (Latest Contact Info) Description 08/06/2015 Hospital Outpatient Visit Historic [facility] OUTPATIENT SERVICES [address] [place] [phone] Perez Cervantes MD [address] [place] [address] [address] [place] [phone] Discharge Disposition: Home or Self Care Social [...] Visit [facility] - Rheumatology [address] [place] [address], [place] [phone] Perez Cervantes MD [address] [place] [address] [address] [place] [phone] documented as of this encounter Procedures Procedure Name Priority Date/Time Associated Diagnosis Comments XR CHEST 2VW Routine 08/06/2015 2:58 PM CDT documented in this encounter Results * XR CHEST 2VW (08/06/2015 2:58 PM CDT) Anatomical Region Laterality Modality Chest Other Impressions 08/07/2015 2:42 PM CDT Impression: No acute pulmonary disease. Reported dictated by Cade Palma MD (surgeon/president). Dr. ANA LUISA Osorio M.D. have personally reviewed and interpreted this examination/study. This report was electronically signed by ANA LUISA KAUFMAN M.D. ??on 08/07/2015 2:42 PM . Narrative 08/07/2015 2:42 PM CDT Chest, 2 views History: On biologic agent Comparison: August 13, 2014 Findings: There is no focal consolidation, pleural effusion or pneumothorax. The cardiomediastinal silhouette is normal. The osseous structures are intact. Procedure Note Ana Luisa Kaufman MD - 02/12/2018 Chest, 2 views History: On biologic agent Comparison: August 13, 2014 Findings: There is no focal consolidation, pleural effusion orpneumothorax. The cardiomediastinal silhouette is normal. The osseousstructures are intact. IMPRESSION Impression: No acute pulmonary disease. Reported dictated by Cade Palma MD (surgeon/president). Dr. ANA LUISA Osorio M.D. have personally reviewed and interpreted thisexamination/study. This report was electronically signed by ANA LUISA KAUFMAN M.D. on 08/07/20152:42 PM . Perez Cervantes MD DIAGNOSTIC IMAGING O RDERABLES documented in this encounter Visit Diagnoses Diagnosis Polyarthropathy or polyarthritis Unspecified polyarthropathy or polyarthritis, site unspecified Encounter for therapeutic drug monitoring documented in this encounter Care Teams Site Administrator Relationship Specialty Start Date End Date Toney Munroe MD PCP - General Family Medicine 02/10/16 07/28/18 documented as of this encounter
--- OUTSIDE RECORDS SUMMARY | 2024-11-13 17:09 | XMS_ITS | Encounter Summary ---
Author Organization [facility] Address [address] [facility] [place] [address] Care Team Providers Care Colorist Name Role Phone Toney Munroe MD Primary Care Provider Encounter Details Date Type Department Care Team (Latest Contact Info) Description 08/13/2014 Hospital Outpatient Visit Historic [facility] OUTPATIENT SERVICES [address] [place] [phone] Perez Cervantes MD [address] [place] [address] [address] [place] [address] Discharge Disposition: Home or Self [...] Visit [facility] - Rheumatology [address] [place] [address], [place] [phone] Perez Cervantes MD [address] [place] [address] [address] [place] [phone] documented as of this encounter Procedures Procedure Name Priority Date/Time Associated Diagnosis Comments XR CHEST 2VW Routine 08/13/2014 2:04 PM CDT documented in this encounter Results * XR CHEST 2VW (08/13/2014 2:04 PM CDT) Anatomical Region Laterality Modality Chest Other Impressions 08/13/2014 2:19 PM CDT IMPRESSION: No acute pulmonary process. Dictated by Maurice Donaldson M.D. This report was approved ??by Ben Donaldson ?? on 08/13/2014 2:[address] ANA LUISA Osorio M.D. have personally reviewed and interpreted this examination/study. This report was electronically signed by ANA LUISA KAUFMAN M.D. ??on 08/13/2014 2:19 PM . Narrative 08/13/2014 2:19 PM CDT EXAM: XR CHEST PA AND LATERAL HISTORY: Monitoring biologic COMPARISON: No prior study is available for comparison. FINDINGS: No focal consolidation, pleural effusion, or pneumothorax is present. The cardiomediastinal silhouette is normal. The visible bony thorax is intact. Procedure Note Ana Luisa Kaufman MD - 02/12/2018 EXAM: XR CHEST PA AND LATERAL HISTORY: Monitoring biologic COMPARISON: No prior study is available for comparison. FINDINGS: No focal consolidation, pleural effusion, or pneumothorax is present. Thecardiomediastinal silhouette is normal. The visible bony thorax isintact. IMPRESSION IMPRESSION: No acute pulmonary process. Dictated by Maurice Donaldson M.D. This report was approved by Ben Donaldson on 08/13/2014 2:[address] ANA LUISA Osorio M.D. have personally reviewed and interpreted thisexamination/study. This report was electronically signed by ANA LUISA KAUFMAN M.D. on 08/13/20142:19 PM . Perez Cervantes MD DIAGNOSTIC IMAGING O RDERABLES documented in this encounter Visit Diagnoses Diagnosis Polyarthropathy or polyarthritis Unspecified polyarthropathy or polyarthritis, site unspecified Encounter for therapeutic drug monitoring documented in this encounter Care Teams Colorist Relationship Specialty Start Date End Date Toney Munroe MD PCP - General Family Medicine 02/10/16 07/28/18 documented as of this encounter
--- OUTSIDE RECORDS SUMMARY | 2024-11-13 17:09 | XMS_ITS | Encounter Summary ---
Author Organization [facility] Address [address] [facility] [place] [address] Care Team Providers Care Assisted Sales Representative Name Role Phone Toney Munroe MD Primary Care Provider Encounter Details Date Type Department Care Team (Latest Contact Info) Description 10/31/2012 Hospital Outpatient Visit Historic [address] [address] Perez Cervantes MD [address] [place] [address] [address] [place] [address] Discharge Disposition: Home or Self [...] Visit [facility] - Rheumatology [address] [place] [address], [place] [phone] Perez Cervantes MD [address] [place] [address] [address] [place] [phone] documented as of this encounter Visit Diagnoses Not on filedocumented in this encounter Care Teams Assisted Sales Representative Relationship Specialty Start Date End Date Toney Munroe MD PCP - General Family Medicine 02/10/16 07/28/18 documented as of this encounter
--- OUTSIDE RECORDS SUMMARY | 2024-11-13 17:09 | XMS_ITS | Encounter Summary ---
Author Organization [facility] Address [address] [facility] [place] [address] Care Team Providers Care Service Delivery Consultant Name Role Phone Toney Munroe MD Primary Care Provider [phone] Encounter Details Date Type Department Care Team (Latest Contact Info) Description 08/06/2015 Hospital Outpatient Visit Historic [facility] OUTPATIENT SERVICES [address] [place] [phone] Perez Cervantes MD [address] [place] [address] 2L [place] [phone] Discharge Disposition: Home or Self Care Social [...] Visit [facility] - Rheumatology [address] [facility], [place] [phone] Perez Cervantes MD [address] [place] [address] 2[address] [place] [phone] documented as of this encounter Visit Diagnoses Not on filedocumented in this encounter Care Teams Service Delivery Consultant Relationship Specialty Start Date End Date Toney Munroe MD PCP - General Family Medicine 02/10/16 07/28/18 documented as of this encounter
--- OUTSIDE RECORDS SUMMARY | 2024-11-13 17:09 | XMS_ITS | Encounter Summary ---
Author Organization [facility] Health Address [address] [place] [address] Care Team Providers Care Director Channel Name Role Phone Toney Munroe MD Primary Care Provider Encounter Details Date Type Department Care Team (Latest Contact Info) Description 10/31/2012 Hospital Outpatient Visit Historic [facility] DIAGNOST RAD [facility] [place] [address] Discharge Disposition: Home or Self Care Social [...] Description 03/27/2025 1:00 PM CDT Office Visit [facility] - Rheumatology [address] [place] [address], [place] [phone] Perez Cervantes MD [address] [place] [address] [place] [phone] documented as of this encounter Procedures Procedure Name Priority Date/Time Associated Diagnosis Comments XR FOOT RIGHT 2VW Routine 10/31/2012 4:3 5 PM [employer] XR FOOT LEFT 2VW Routine 10/31/2012 4:35 PM [employer] XR HAND RIGHT 2VW Routine 10/31/2012 4:3 5 PM [employer] XR HAND LEFT 2VW Routine 10/31/2012 4:35 PM [employer] documented in this encounter Results * XR FOOT RIGHT 2VW (10/31/2012 4:35 PM [employer]) Anatomical Region Laterality Modality Ankle / Foot Other Impressions 11/01/2012 9:11 AM [employer] Impression: No evidence of erosive arthritis. Report dictated by Dinh Cortes M.D. (resident). Dr. NITZA Osorio M.D. have personally reviewed and interpreted this examination/study. This report was electronically signed by NITZA VIDALES M.D. ??on 11/01/2012 9:11 AM . Narrative 11/01/2012 9:11 AM [employer] Exam: ??Right foot, 2 views. History: ??Polyarthritis Comparison: None available. Findings: The osseous structures are intact and well aligned. There are no acute cortical discontinuity is or focal erosive changes. There is no focal soft tissue swelling. Procedure Note Nitza Vidales MD - 02/13/2018 Exam: Right foot, 2 views. History: Polyarthritis Comparison: None available. Findings: The osseous structures are intact and well aligned. There are noacute cortical discontinuity is or focal erosive changes. There is nofocal soft tissue swelling. IMPRESSION Impression: No evidence of erosive arthritis. Report dictated by Dinh Cortes M.D. (resident). Dr. NITZA Osorio M.D. have personally reviewed and interpreted thisexamination/study. This report was electronically signed by NITZA VIDALES M.D. on11/01/2012 9:11 AM . Perez Cervantes MD DIAGNOSTIC IMAGING O RDERABLES * XR FOOT LEFT 2VW (10/31/2012 4:35 PM [employer]) Anatomical Region Laterality Modality Ankle / Foot Other Impressions 11/01/2012 9:10 AM [employer] Impression: No evidence of erosive arthritis. Report dictated by Dinh Cortes M.D. (resident). Dr. NITZA Osorio M.D. have personally reviewed and interpreted this examination/study. This report was electronically signed by NITZA VIDALES M.D. ??on 11/01/2012 9:10 AM . Narrative 11/01/2012 9:10 AM [employer] Exam: ??Left foot, 2 views History: ??Polyarthritis Comparison: None available. Findings: The osseous structures are intact and well aligned. There are no acute cortical discontinuity is or focal erosive changes. There is no focal soft tissue swelling. Procedure Note Nitza Vidales MD - 02/13/2018 Exam: Left foot, 2 views History: Polyarthritis Comparison: None available. Findings: The osseous structures are intact and well aligned. There are noacute cortical discontinuity is or focal erosive changes. There is nofocal soft tissue swelling. IMPRESSION Impression: No evidence of erosive arthritis. Report dictated by Dinh Cortes M.D. (resident). Dr. NITZA Osorio M.D. have personally reviewed and interpreted thisexamination/study. This report was electronically signed by NITZA VIDALES M.D. on11/01/2012 9:10 AM . Perez Cervantes MD DIAGNOSTIC IMAGING O RDERABLES * XR HAND RIGHT 2VW (10/31/2012 4:35 PM [employer]) Anatomical Region Laterality Modality Wrist / Hand Other Impressions 11/01/2012 9:09 AM [employer] Impression: Mild degenerative changes. No evidence of erosive arthritis. Report dictated by Dinh Cortes M.D. (resident). Dr. NITZA Osorio M.D. have personally reviewed and interpreted this examination/study. This report was electronically signed by NITZA VIDALES M.D. ??on 11/01/2012 9:09 AM . Narrative 11/01/2012 9:09 AM [employer] Exam: ??Right hand, 2 views. History: ??Polyarthritis Comparison: None available. Findings: The osseous structures are intact and well aligned. There are no acute cortical discontinuities or focal erosive changes. There is mild symmetric interphalangeal joint space narrowing best seen at the fourth DIP on the lateral view. There is no focal soft tissue swelling. Procedure Note Nitza Vidales MD - 02/13/2018 Exam: Right hand, 2 views. History: Polyarthritis Comparison: None available. Findings: The osseous structures are intact and well aligned. There are noacute cortical discontinuities or focal erosive changes. There is mildsymmetric interphalangeal joint space narrowing best seen at the fourthDIP on the lateral view. There is no focal soft tissue swelling. IMPRESSION Impression: Mild degenerative changes. No evidence of erosive arthritis. Report dictated by Dinh Cortes M.D. (resident). Dr. NITZA Osorio M.D. have personally reviewed and interpreted thisexamination/study. This report was electronically signed by NITZA VIDALES M.D. on11/01/2012 9:09 AM . Perez Cervantes MD DIAGNOSTIC IMAGING O RDERABLES * XR HAND LEFT 2VW (10/31/2012 4:35 PM [employer]) Anatomical Region Laterality Modality Wrist / Hand Other Impressions 11/01/2012 9:06 AM [employer] Impression: Mild degenerative changes. No evidence of inflammatory arthritis. Report dictated by Dinh Cortes M.D. (resident). Dr. NITZA Osorio M.D. have personally reviewed and interpreted this examination/study. This report was electronically signed by NITZA VIDALES M.D. ??on 11/01/2012 9:06 AM . Narrative 11/01/2012 9:06 AM [employer] Exam: ??Left hand, 2 views. History: ??Polyarthritis Comparison: None available. Findings: The osseous structures are intact and well aligned. There are no acute cortical discontinuity or focal erosive changes. There is mild symmetric interphalangeal joint space narrowing within the hand. There is no focal soft tissue swelling. Procedure Note Nitza Vidales MD - 02/13/2018 Exam: Left hand, 2 views. History: Polyarthritis Comparison: None available. Findings: The osseous structures are intact and well aligned. There are noacute cortical discontinuity or focal erosive changes. There is mildsymmetric interphalangeal joint space narrowing within the hand. There isno focal soft tissue swelling. IMPRESSION Impression: Mild degenerative changes. No evidence of inflammatory arthritis. Report dictated by Dinh Cortes M.D. (resident). I, Dr. NITZA VIDALES M.D. have personally reviewed and interpreted thisexamination/study. This report was electronically signed by NITZA VIDALES M.D. on11/01/2012 9:06 AM . Perez Cervantes MD DIAGNOSTIC IMAGING O RDERABLES documented in this encounter Visit Diagnoses Diagnosis Polyarthropathy or polyarthritis Unspecified polyarthropathy or polyarthritis, site unspecified documented in this encounter Care Teams Director Channel Relationship Specialty Start Date End Date Toney Munroe MD PCP - General Family Medicine 02/10/16 07/28/18 documented as of this encounter
--- OUTSIDE RECORDS SUMMARY | 2024-11-13 17:10 | XMS_ITS | Encounter Summary ---
Author Organization [facility] Address [address] [place] [address]. [place], [place] [address] [place] [address] Care Team Providers Care Coffee Grinder Name Role Phone Dayanara Plaza MD Primary Care Provider [phone] Perez Cervantes MD Unavailable Adriana Ma MD Unavailable [phone] Reason for Visit * Reason Comments TCM Encounter Details Date Type Department Care Team (Late st Contact Info) Description 06/02/2024 3:00 PM CDT Office Visit [facility] Family & Internal Medicine [address] [address] Dayanara Plaza MD [address] [place] [address]. [address] [place] [address] TCM Social History Tobacco Use Types Packs/Day Years Used Date Smoking Tobacco: Former Cigarettes 0.3 10 0 11/15/1979 - 11/15/1989 Passive Smoke Exposure: Past Smokeless Tobacco: Never Tobacco Cessation:Counseling Given: No Comments:off and on for 10 years from [age] with long periods of none at all Alcohol Use Standard Drinks/Week Comments No 0 (1 standard drink = 0.6 oz pur e alcohol) B1300 Health Literacy Answer Date Recor ded How often do you need to hav e someone help you when you read instructions, pamphlets, or other written material from your doctor or pharmacy? Never 05/23/2024 [facility] Utilities Answer Date Recorded In the past 12 months has th e electric, gas, oil, or water We Are Hunted threatened to shut off services in your home? No 05/23/2024 Humiliation, Afraid, Rape, and Kick questionnair e Answer Date Recorded Within the last year, have y ou been afraid of your partner or ex-partner? No 05/23/2024 Within the last year, have y ou been humiliated or emotionally abused in other ways by your partner or ex-partner? No Within the last year, have y ou been kicked, hit, slapped, or otherwise physically hurt by your partner or ex-partner? No 05/23/2024 Within the last year, have y ou been raped or forced to have any kind of sexual activity by your partner or ex-partner? No 05/23/2024 AUDIT-C Answer Date Recorded Frequency of Alcohol Consumption Never 11/30/2018 Average Number of Drinks Not on file 019 Frequency of Binge Drinking Not on file 11/15 Overall Financial Resource Strain (CARDIA) Answe r Date Recorded How hard is it for you to pa y for the very basics like food, housing, medical care, and heating? Not hard at all 05/23/2024 PHQ-2 Answer Date Recorded Patient Health Questionnaire-2 Score 0 04/03/2024 [facility] - Occupational Stress Questionnaire Answer Date Recorded Do you feel stress - tense, restless, nervous, or anxious, or unable to sleep at night because your mind is troubled all the time - these days? Not at all 05/23/2024 Exercise Vital Sign Answer Date Recorde d On average, how many days pe r week do you engage in moderate to strenuous exercise (like a brisk walk)? 2 days 05/23/2024 On average, how many minutes do you engage in exercise at this level? 50 min 05/23/2024 Hunger Vital Sign Answer Date Recorded Within the past 12 months, y ou worried that your food would run out before you got the money to buy more. Never true 05/23/20 24 Within the past 12 months, t he food you bought just didn't last and you didn't have money to get more. Never true 05/23/2024 PRAPARE - Transportation Answer Date Re corded In the past 12 months, has l ack of transportation kept you from medical appointments or from getting medications? No 07/2024 In the past 12 months, has l ack of transportation kept you from meetings, work, or from getting things needed for daily living? No 05/23/2024 Housing Stability Vital Sign Answer Andres e Recorded In the last 12 months, was t here a time when you were not able to pay the mortgage or rent on time? No 05/23/2024 In the past 12 months, how m any times have you moved where you were living? 1 05/23/2024 At any time in the past 12 m [facility], were you homeless or living in a [facility] (including now)? No 05/23/2024 Education Answer Date Recorded What is the highest level of school you have completed or the highest degree you have received? 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 file documented as of this encounter Last Filed Vital Signs Vital Sign Reading Time Taken Comments Blood Pressure 130/70 06/02/2024 3:08 PM CDT Pulse 77 06/02/2024 3:08 PM CDT Temperature 36.7 ??C (98.1 ??F) 06/02/2024 3:08 PM CD T Respiratory Rate 14 06/02/2024 3:08 PM CDT Oxygen Saturation 96% 06/02/2024 3:08 PM CDT Inhaled Oxygen Concentration - - Weight 76.7 kg (169 lb) 06/02/2024 3:08 PM CDT Height 172.7 cm (5' 8 ) 06/02/2024 3:08 PM CDT Body Mass Index 25.7 06/02/2024 3:08 PM CDT documented in this encounter Functional Status * Are you deaf or do you have serious difficulty hearing Answer Date of Assessment Author Status No 05/23/2024 5:13 PM CDT Angélica Johnson RN Active * Are you blind or do you have serious difficulty seeing, even when wearing glasses? Answer Date of Assessment Author Status No 05/23/2024 5:13 PM TIARAT Angélica Johnson RN Active * Do you have serious difficulty walking or climbing stairs? Answer Date of Assessment Author Status No 05/23/2024 5:13 PM CDT Angélica Johnson RN Active * Do you have difficulty dressing or bathing? Answer Date of Assessment Author Status No 05/23/2024 5:13 PM TIARAT Angélica Johnson RN Active * Because of a physical, mental, or emotional condition, do you have difficulty doing errands alone such as visiting a doctor's office or shopping? Answer Date of Assessment Author Status No 05/23/2024 5:13 PM Angélica Ramirez RN Active documented as of this encounter Mental Status * Because of a physical, mental, or emotional condition, do you have serious difficulty concentrating, remembering, or making decisions? Answer Entry Date Author Status No 05/23/2024 5:13 PM Angélica Ramirez RN Active documented in this encounter Progress Notes * Dayanara Plaza MD - 06/02/2024 3:00 PM CDT Reason for Visit: TCM History of Present Illness: CESARIO [facility] is a pleasant 59-year-old female with past medical history but not limited to generalized anxiety, depression, seasonal allergies, GERD, IBS, RA on mtx, polyarthritis, seasonalallergies was seen today for hospital discharge follow-up appointment. Noted recent hospital admission for small bowel obstruction. NG tube was placed. Patient was kept n.p.o. and IV fluids. Underwent ex lap and lysis of adhesion on 05/23 NG tube was removed 05/25 During hospitalization her potassium was low. Today Diet and appetite- EATING HEALTHY- OATMEAL, yogurt,banana, veg soup, SALAD. WATERMELON, strawberry. Abdominal pain- ONLY INCISION HURTS Nausea vomiting-denies Diarrhea- HAD DIARRHEA ON wednesday. HAD NOT HAD NO BM SINCE. USED SUPPOSITORY YESTERDAY per surgeon- HAS HAD 2 VERY SMALL bm SINCE. WAS Passing GAS until yesterday. Fever-denies Overall feeling well. No other concerns for today. SPECIALISTS: fiscal assistant, Processing Specialist. 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 No other concerns for today ROS: Review of Systems negative except documented in HPI Medications: Current Outpatient Medications: folic acid (FOLVITE) 1 MG tablet, Take 1 tablet (1 mg total) by mouth daily., Disp: , Rfl: methotrexate 2.5 MG tablet, Take by mouth once a week. Take 6 tablets every 7 days., Disp: , Rfl: montelukast (SINGULAIR) 10 MG tablet, TAKE 1 TABLET (10 MG TOTAL) BY MOUTH DAILY., Disp: 90 tablet,Rfl: 3 pantoprazole (PROTONIX) 40 MG packet, Take 1 packet by mouth daily., Disp: 30 tablet, Rfl: 0 traZODone (DESYREL) 100 MG tablet, Take 1.5 tablets (150 mg total) by mouth nightly at bedtime., Disp: 135 tablet, Rfl: 3 valACYclovir 1 g tablet, as needed. , Disp: , Rfl: ALPRAZolam (XANAX) 0.25 MG tablet, Take 1 tablet (0.25 mg total) by mouth nightly as needed for Anxiety or Sleep. FOR ANXIETY (Patient not taking: Reported on 06/02/2024), Disp: 30 tablet, Rfl: 0 dicyclomine (BENTYL) 20 MG tablet, Take 1 tablet (20 mg total) by mouth every 6 (six) hours as needed. (Patient not taking: Reported on 06/02/2024), Disp: 60 tablet, Rfl: 2 estradiol (ESTRACE) 0.1 MG/GM vaginal cream, Place vaginally daily. (Patient not taking: Reported on 06/02/2024), Disp: , Rfl: etanercept 50 MG/ML injection, Inject 1 mL (50 mg total) into the skin weekly. (Patient not taking:Reported on 06/02/2024), Disp: , Rfl: fexofenadine (PIYUSH) 180 MG tablet, Take 1 tablet (180 mg total) by mouth daily. (Patient not taking: Reported on 06/02/2024), Disp: , Rfl: nabumetone (RELAFEN) 500 MG tablet, Take 1 tablet (500 mg total) by mouth 2 (two) times daily as needed for Pain. (Patient not taking: Reported on 06/02/2024), Disp: , Rfl: ondansetron (ZOFRAN-ODT) 8 MG disintegrating tablet, Take 1 tablet (8 mg total) by mouth every 8 (eight) hours as needed for Nausea. (Patient not taking: Reported on 06/02/2024), Disp: 20 tablet, Rfl:0 oxyCODONE-acetaminophen (PERCOCET) 5-325 MG tablet, Take 1 tablet by mouth every 4 (four) hours as needed for Pain. Indications: Acute Pain < 3 Day Supply (Patient not taking: Reported on 06/02/2024), Disp: 12 tablet, Rfl: 0 Review of patient's allergies indicates: Allergen Reactions Levofloxacin Nausea and Vomiting, Nausea Only, Hallucinations and Other (see comment) hallucinations Other reaction(s): Other hallucinations Past Medical History: Diagnosis Date Anxiety Cataract surgery 2020 COVID-19 GERD (gastroesophageal reflux disease) Heart murmur IBS (irritable bowel syndrome) Inflammatory arthritis Plantar fasciitis RA (rheumatoid arthritis) ([facility] Past Surgical History: Procedure Laterality Date ABDOMINAL SURGERY 05/23/2024 LAPAROTOMY EXPLORATORY, LYSIS OF ADHESIONS BY DR ERVIN CHOLECYSTECTOMY COLONOSCOPY N/A 03/17/2021 COLONOSCOPY-NORMAL performed by Niall Matute MD at [facility] GI COLONOSCOPY STOMA DX INCLUDING COLLJ SPEC SPX AH 9 yrs. 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 Use Smoking status: Former Current packs/day: 0.00 Average packs/day: 0.3 packs/day for 10.0 years (2.5 ttl pk-yrs) Types: Cigarettes Start date: 11/15/1979 Quit date: 11/15/1989 Years since quittin.5 Passive exposure: Past Smokeless tobacco: Never Tobacco comments: off and on for 10 years from 84-94 with long periods of none at all Vaping Use Vaping status: Never Used Substance and Sexual Activity Alcohol use: No Drug use: No Sexual activity: Yes Partners: Male control/protection: None Other Topics Concern Service No Blood Transfusions No Caffeine Concern Yes Comment: coffee, tea Occupational Exposure No Hobby Hazards No Sleep Concern Yes Comment: hard time falling asleep and getting asleep Stress Concern Yes Weight Concern No Special Diet No Back Care No Exercise Yes Bike Helmet No Seat Belt Yes Self-Exams No Wheelchair No Walker No Upper extremity braces/slings No Lower extermity braces/slings No Self Care Yes Social History Narrative Lives at home with husb and dog. Social Determinants of Health Financial Resource Strain: Low Risk (05/23/2024) Overall Financial Resource Strain (CARDIA) Difficulty of Paying Living Expenses: Not hard at all Food Insecurity: No Food Insecurity (05/23/2024) Hunger Vital Sign Worried About Running Out of Food in the Last Year: Never true Ran Out of Food in the Last Year: Never true Transportation Needs: No Transportation Needs (05/23/2024) PRAPARE - Transportation Lack of Transportation (Medical): No Lack of Transportation (Non-Medical): No Physical Activity: Insufficiently Active (05/23/2024) Exercise Vital Sign Days of Exercise per Week: 2 days Minutes of Exercise per Session: 50 min Stress: No Stress Concern Present (05/23/2024) [place] [facility] - Occupational Stress Questionnaire Feeling of Stress : Not at all Intimate Partner Violence: Not At Risk (05/23/2024) Humiliation, Afraid, Rape, and Kick questionnaire Fear of Current or Ex-Partner: No Emotionally Abused: No Physically Abused: No Sexually Abused: No Housing Stability: Low Risk (05/23/2024) Housing Stability Vital Sign Unable to Pay for Housing in the Last Year: No Number of Times Moved in the Last Year: 1 Homeless in the Last Year: No E-Cigarettes Questions Responses E-Cigarette Use Never User Family History Problem Relation Name Age of Onset COPD Mother Shirley Other (mva) Father Family Status Relation Name Status Mother Shirley Alive Father No partnership data on file Physical Exam Vitals reviewed. HENT: Head: Normocephalic and atraumatic. Eyes: Conjunctiva/sclera: Conjunctivae normal. Cardiovascular: Rate and Rhythm: Normal rate and regular rhythm. Pulmonary: Effort: Pulmonary effort is normal. Breath sounds: Normal breath sounds. No wheezing. Abdominal: General: Abdomen is flat. There is no distension. Palpations: There is no mass. Tenderness: There is no rebound. Hernia: No hernia is present. Comments: VERTICAL Linear incision with augustine intact. No drainage, purulence or surrounding erythema. Minimal tenderness on palpation Musculoskeletal: Right lower leg: No edema. Left lower leg: No edema. Skin: General: Skin is warm. Neurological: Mental Status: She is alert and oriented to person, place, and time. Psychiatric: Mood and Affect: Mood normal. Behavior: Behavior normal. Judgment: Judgment normal. Filed Vitals: 06/02/24 1508 BP: 130/70 Pulse: 77 Resp: 14 Temp: 98.1 ??F (36.7 ??C) TempSrc: Temporal SpO2: 96% Weight: 76.7 kg (169 lb) Height: 1.727 m (5' 8 ) Diagnoses/Impression: 1. Hospital discharge follow-up XR ABD KUB 2. SBO (small bowel obstruction) (CMS/HCC HHS/HCC) XR ABD KUB 3. Chronic anemia BASIC METABOLIC PANEL 4. Hypokalemia CBC W/DIFF AUTOMATED 5. Gastroesophageal reflux disease without esophagitis Recommendations and Plan: Hospital records reviewed today including: admitting history and physical, discharge summary, diagnostic studies, imaging studies and home medication reconciliation. ? Hospital discharge facility: [facility] Admission date: 05/23/2024 Discharge date: 05/30/2024 Discharge diagnosis: SBO Date of interactive contact with patient: 05/31/2024 done by my clinic's Clinical Pen Tender Face to Face Visit: 06/02/2024 ? Patient's transition home stable ---LABS TODAY TO UP ON HYPOKALEMIA. ---xRAY FOR CONSTIPATION given recent SBO. advised to monitor for flatulence. --repeat suppository prn. Fluids and fiber. ---continue PPI ---FU WITH SURGEON ADVISED ? Education provided to patient and/or caregiver/family on home safety, support of ADLs, and support of independent living Current home support is adequate Medications from hospital and/or SNF discharge reviewed and questions answered Patient is compliant with post-discharge medications Orders Placed This Encounter XR ABD KUB CBC W/DIFF AUTOMATED BASIC METABOLIC PANEL Reviewed and updated this visit by provider: Dayanara Plaza MD Referring Provider: No ref. provider found PCP: Dayanara Plaza MD documented in this encounter Plan of Treatment Upcoming Encounters Date Type Department Care Team (Late st Contact Info) Description 11/14/2024 8:00 AM UTILITIES EQUIPMENT REPAIRER Office Visit [facility]pec[facility] - [facility] [address] [facility], [address] [place] [address] Montserrta Oliver NP [address] [facility] [address] [place] [id number] 12/06/2024 9:30 AM UTILITIES EQUIPMENT REPAIRER Appointment [facility] [address] [place] [address] [place] [address] [facility] [place] [phone] 03/02/2025 3:20 PM CDT Office Visit [facility] Family & Internal Medicine - [address] [address] [place] [address] [facility] [place] [address] [phone] documented as of this encounter Goals Goal Patient Goal Type Associated Problems Recent Progress Patient-Stated? Author Family - family caregiver with be involved in care transitions and discharge planning Lifestyle No Nessa Pan, ORNAMENTAL METAL FABRICATOR APPRENTICE documented as of this encounter Results * XR ABD KUB (06/02/2024 4:06 PM CDT) Anatomical Region Laterality Modality Abdomen Radiographic Corin ging 06/05/2024 3:57 AM CDT Impressions 06/05/2024 3:58 AM CDT IMPRESSION: 1. ??NONOBSTRUCTIVE BOWEL GAS PATTERN. Signed: Be Jones MD Referred By: ?? Interpreted By: Be Jones MD, 06/05/2024 3:57 AM Narrative 06/05/2024 3:58 AM CDT PATIENT NAME: HANS PASCUAL EXAM: Abdomen one view DATE OF EXAM: 06/02/2024 COMPARISON EXAM: 08/30/2023 INDICATION: SBO TECHNIQUE: Supine AP views abdomen/pelvis FINDINGS: Nonobstructive bowel gas pattern. ??No significantly dilated loops of colon or small bowel. ??No evidence to suggest free air. ??Surgical clips right upper quadrant. ??Skin clips project over the midline. ??No evidence of organomegaly nor mass lesion. Procedure Note Be Jones MD - 06/05/2024 PATIENT NAME: HANS PASCUAL EXAM: Abdomen one view DATE OF EXAM: 06/02/2024 COMPARISON EXAM: 08/30/2023 INDICATION: SBO TECHNIQUE: Supine AP views abdomen/pelvis FINDINGS: Nonobstructive bowel gas pattern. No significantly dilatedloops of colon or small bowel. No evidence to suggest free air. Surgicalclips right upper quadrant. Skin clips project over the midline. Noevidence of organomegaly nor mass lesion. IMPRESSION: 1. NONOBSTRUCTIVE BOWEL GAS PATTERN. Signed: Be Jones MD Referred By: Interpreted By: Be Jones MD, 06/05/2024 3:57 AM Dayanara Plaza MD GENERAL IMAGING Final Result * (ABNORMAL) BASIC METABOLIC PANEL (06/02/2024 3:43 PM CDT) GLUCOSE 103(H) 70 - 99 MG/DL 06/02/2024 5:47 PM CDT [facility] BUN 7 7 - 18 MG/DL 06/02/2024 5:47 PM CDT [facility] CREATININE S/P/B 0.83 0.55 - 1.02 MG/DL 06/02/2024 5:47 PM CDT [facility] SODIUM S/P/B 145 136 - 145 MMOL/L 06/02/2024 5:47 PM CDT [facility] POTASSIUM S/P/B 4.8 3.5 - 5.1 MMOL/L 06/02/2024 5:47 PM CDT [facility] CHLORIDE S/P/B 107 100 - 108 MMOL/L 06/02/2024 5:47 PM CDT [facility] CO2 30.3 21 - 32 MMOL/L 06/02/2024 5:47 PM CDT [facility] CALCIUM S/P/B 9.9 8.5 - 10.1 MG/DL 06/02/2024 5:47 PM CDT [facility] ANION GAP 7.7 5 - 15 MMOL/L 06/02/2024 5:47 PM CDT [facility] BUN CREATININE RATIO 8.4 6 - 26 06/02/2024 5:47 PM CDT [facility] GFR ESTIMATE 80(L) >90 ML/MIN/1.7 3 M2 06/02/2024 5:47 PM CDT [facility] Comment: NOTE: eGFR is not calculated for patients <18 years of age. This is an estimated GFR calculation using the new CKD EPI creatinine equation without race and so does not require a correction factor for race. This estimated GFR should not be used for calculating drug doses. 06/02/2024 3:43 PM CDT us Dayanara Plaza MD LABORATORY Final Result [facility] [address] [place] [address], [place] [phone] * (ABNORMAL) CBC W/DIFF AUTOMATED (06/02/2024 3:43 PM CDT) WBC 5.34 4.4 - 11.0 x10'3/uL 06/02/2024 5:24 PM CDT [facility] RBC 3.75(L) 4.50 - 5.10 x10'6/uL 06/02/2024 5:24 PM CDT [facility] HGB 12.2(L) 12.3 - 15.3 G/DL 06/02/2024 5:24 PM CDT [facility] HCT 37.2 35.9 - 44.6 % 06/02/2024 5:24 PM CDT [facility] MCV 99.2(H) 80.0 - 96.0 FL 06/02/2024 5:24 PM CDT [facility] MCH 32.5(H) 25.3 - 30.9 PG 06/02/2024 5:24 PM CDT [facility] MCHC 32.8 31.0 - 34.1 G/DL 06/02/2024 5:24 PM CDT [facility] RDW 14.0 12.4 - 15.1 % 06/02/2024 5:24 PM T [facility] PLT 326 151 - 353 x10'3/uL 06/02/2024 5:24 PM CDT [facility] MPV 10.8 9.6 - 12.0 FL 06/02/2024 5:24 PM CDT [facility] RBC MORPHOLOGY NORMAL 06/02/2024 5:24 PM CDT [facility] PLT MORPH. NORMAL 06/02/2024 5:24 PM T [facility] WBC MORPHOLOGY NORMAL 06/02/2024 5:24 PM CDT [facility] LYMPHOCYTES % 30.7 15.8 - 45.0 % 06/02/2024 5:24 PM CDT [facility] NEUTROPHILS % 53.3 42.1 - 71.9 % 06/02/2024 5:24 PM CDT [facility] MONOCYTES % 12.4 5.7 - 12.5 % 06/02/2024 5:24 PM CDT [facility] EOSINOPHILS 2.8 0.0 - 5.6 % 06/02/2024 5:24 PM CDT [facility] BASOPHILS 0.6 0.0 - 1.3 % 06/02/2024 5:24 PM CDT [facility] ABS. NEUTROPHILS 2.85 1.40 - 6.00 x10'3/uL 06/02/2024 5:24 PM CDT [facility] IMMATURE GRANS % 0.2 0.0 - 0.5 % 06/02/2024 5:24 PM CDT [facility] ABS. LYMPHOCYTES 1.64 0.80 - 4.70 x10'3/uL 06/02/2024 5:24 PM CDT [facility] 06/02/2024 3:43 PM CDT us Dayanara Plaza MD LABORATORY Final Result [facility] [address] [place] [address], [place] [phone] documented in this encounter Visit Diagnoses Diagnosis Hospital discharge follow-up- Primary Other follow-up examination SBO (small bowel obstruction) ([facility] HHS/H[facility]) Unspecified intestinal obstruction Chronic anemia Anemia, unspecified Hypokalemia Hypopotassemia Gastroesophageal reflux disease without esophagitis Esophageal reflux Hospital discharge follow-up Other follow-up examination SBO (small bowel obstruction) ([facility]) Unspecified intestinal obstruction documented in this encounter Additional Health Concerns Assessment Noted Time PHQ-9 Depression Total Score: 0 04/03/20 10:56 AM CDT documented as of this encounter Care Teams Coffee Grinder Relationship Specialty [place] [id number] [address] [place] [address] PCP - General FAMILY PRACTICE 03/01/23 Perez Cervantes MD [address] [place] [id number] RHEUMATOLOGY 09/02/23 Adriana Ma MD [address] [place] [address] [id number] Referring Physician ALLERGY 09/02/23 documented as of this encounter
--- OUTSIDE RECORDS SUMMARY | 2024-11-13 17:10 | XMS_ITS | Encounter Summary ---
Author Organization [facility] Address [address] [place] [address]. [place] [address] [place] [address] Care Team Providers Care Spray Drier Operator Name Role Phone Dayanara Plaza MD Primary Care Provider [phone] Perez Cervantes MD Unavailable Adriana Ma MD Unavailable [phone] Encounter Details Date Type Department Care Team (Latest Contact Info) Description 06/02/2024 5:15 PM CDT - 06/02/2024 11:59 PM CDT Hospital Encounter [facility] Laboratory [address] [place] [address] [place] [address] [address] [place] [address] Discharge Disposition: Home or Self Care (Routine Discharge) Social History Tobacco Use Types Packs/Day Years Used Date Smoking Tobacco: Former Cigarettes 0.3 10 0 11/15/1979 - 11/15/1989 Passive Smoke Exposure: Past Smokeless Tobacco: Never Comments:off and on for 10 y ears from [age] with long periods of none at all Alcohol Use Standard Drinks/Week Comments No 0 (1 standard drink = 0.6 oz pur e alcohol) B1300 Health Literacy Answer Date Recor ded How often do you need to hav e someone help you when you read instructions, pamphlets, or other written material from your doctor or pharmacy? Never 05/23/2024 [facility] Utilities Answer Date Recorded In the past 12 months has th e electric, gas, oil, or water [employer] threatened to shut off services in your [...] Recorded Patient Health Questionnaire-2 Score 0 04/03/2024 [facility] of Occupat ional Health - Occupational Stress Questionnaire Answer Date Recorded [...] any time in the past 12 m [facility], were you homeless or living in a half-way (including now)? No 05/23/2024 Education Answer Date Recorded What is the highest level of school you have completed or the highest degree you have received? 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 Answer Entry Date Author Status No 05/23/2024 5:13 PM CDT Angélica Johnson RN Active documented in this encounter Medications at Time of Discharge ALPRAZolam (XANAX) 0.25 MG tabletIndications:An xiety Take 1 tablet (0.25 mg total) by mouth nightly as needed for Anxiety or Sleep. 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 60 tablet 2 05/11/2024 estradiol (ESTRACE) 0.1 MG/GM vaginal cream Place vaginally daily. 10/26/2023 etanercept 50 MG/ML injection Inject 1 mL (50 mg total) into the skin weekly. 05/30/2014 fexofenadine (PIYUSH) 180 MG tablet Take 1 tablet (180 mg total) by mouth daily. folic acid (FOLVITE) 1 MG tablet Take 1 tablet (1 mg total) by mouth daily. methotrexate 2.5 MG tablet Take by mouth once a week. Take 6 tablets every 7 days. 06/06/2018 montelukast (SINGULAIR) 10 MG tabletIndications:Se asonal allergies TAKE 1 TABLET (10 MG TOTAL) BY MOUTH DAILY. 90 tablet 3 11/29/2023 nabumetone (RELAFEN) 500 MG tablet Take 1 tablet (500 mg total) by mouth 2 (two) times daily as needed for Pain. valACYclovir 1 g tablet as needed. 10/10/2019 ondansetron (ZOFRAN-ODT) 8 MG disintegrating tablet Take 1 tablet (8 mg total) by mouth every 8 (eight) hours as needed for Nausea. 20 tablet 05/22/2024 oxyCODONE-acetaminop hen (PERCOCET) 5-325 MG tabletIndications:Ac [place] Pain < 3 Day Supply Take 1 tablet by mouth every 4 (four) hours as needed for Pain. Indications: Acute Pain < 3 Day Supply 12 tablet 05/21/2024 4 pantoprazole (PROTONIX) 40 MG packet Take 1 packet by mouth daily. 30 tablet 05/22/2024 4 traZODone (DESYREL) 100 MG tabletIndications:In somnia due to other mental disorder Take 1.5 tablets (150 mg total) by mouth nightly at bedtime. 135 tablet 3 05/11/2024 4 documented as of this encounter Plan of Treatment Upcoming Encounters Date Type Department Care Team (Late st Contact Info) Description 11/14/2024 8:00 AM HOP FARMER Office Visit [facility] Multispecialty Care - [facility] 3 [facility], [address] [place] [phone] Montserrat Oliver NP 3 [facility] [address] [place] [address] 12/06/2024 9:30 AM HOP FARMER Appointment [facility] MRI [address] [place] [address] [place] [address] [facility]. [address] [place] [address] 03/02/2025 3:20 PM CDT Office Visit [facility] Family & Internal Medicine - [address] [phone] [place] [address] [facility]. [address] [place] [address] documented as of this encounter Goals Goal Patient Goal Type Associated Problems Recent Progress Patient-Stated? Author Family - family caregiver with be involved in care transitions and discharge planning Lifestyle No Nessa Pan, FOOD AND BEVERAGE INTERN documented as of this encounter Procedures Procedure Name Priority Date/Time Associated Diagnosis Comments TSH W/REFLEX Routine 06/02/2024 3:43 PM CDT Thyroid disorder screening Weight gain HEMOGLOBIN, GLYCOSYLATED Routine 06/02/2024 3:43 PM CDT Diabetes mellitus screening BASIC METABOLIC PANEL Routine 06/02/2024 3:43 PM CDT Chronic anemia CBC W/DIFF AUTOMATED Routine 06/02/2024 3:43 PM CDT Hypokalemia VITAMIN D, 25 OH Routine 06/02/2024 3:43 PM CDT Vitamin D deficiency documented in this encounter Results * (ABNORMAL) CBC W/DIFF AUTOMATED (06/02/2024 3:43 PM CDT) [facility] WBC 5.34 4.4 - 11.0 x10'3/uL 06/02/2024 5:24 PM CDT [facility] RBC 3.75(L) 4.50 - 5.10 x10'6/uL 06/02/2024 5:24 PM CDT [facility] HGB 12.2(L) 12.3 - 15.3 G/DL 06/02/2024 5:24 PM CDT [facility] HCT 37.2 35.9 - 44.6 % 06/02/2024 5:24 PM CDT [facility] MCV 99.2(H) 80.0 - 96.0 FL 06/02/2024 5:24 PM CDT [facility] MCH 32.5(H) 25.3 - 30.9 PG 06/02/2024 5:24 PM CDT [facility] MCHC 32.8 31.0 - 34.1 G/DL 06/02/2024 5:24 PM CDT [facility] RDW 14.0 12.4 - 15.1 % 06/02/2024 5:24 PM CDT [facility] PLT 326 151 - 353 x10'3/uL 06/02/2024 5:24 PM CDT [facility] MPV 10.8 9.6 - 12.0 FL 06/02/2024 5:24 PM CDT [facility] RBC MORPHOLOGY NORMAL 06/02/2024 5:24 PM CDT [facility] PLT MORPH. NORMAL 06/02/2024 5:24 PM CDT [facility] WBC MORPHOLOGY NORMAL 06/02/2024 5:24 PM CDT [facility] LYMPHOCYTES % 30.7 15.8 - 45.0 % 06/02/2024 5:24 PM CDT [facility] NEUTROPHILS % 53.3 42.1 - 71.9 % 06/02/2024 5:24 PM CDT [facility] MONOCYTES % 12.4 5.7 - 12.5 % 06/02/2024 5:24 PM CDT [facility] EOSINOPHILS 2.8 0.0 - 5.6 % 06/02/2024 5:24 PM CDT [facility] BASOPHILS 0.6 0.0 - 1.3 % 06/02/2024 5:24 PM CDT [facility] ABS. NEUTROPHILS 2.85 1.40 - 6.00 x10'3/uL 06/02/2024 5:24 PM CDT [facility] IMMATURE GRANS % 0.2 0.0 - 0.5 % 06/02/2024 5:24 PM CDT [facility] ABS. LYMPHOCYTES 1.64 0.80 - 4.70 x10'3/uL 06/02/2024 5:24 PM CDT [facility] 06/02/2024 3:43 PM CDT Dayanara Plaza MD LABORATORY Final Result [facility] [address] [place] [address], * (ABNORMAL) BASIC METABOLIC PANEL (06/02/2024 3:43 PM CDT) Pathologist [facility] GLUCOSE 103(H) 70 - 99 MG/DL 06/02/2024 5:47 PM CDT [facility] BUN 7 7 - 18 MG/DL 06/02/2024 5:47 PM CDT [facility] CREATININE S/P/B 0.83 0.55 - 1.02 MG/DL 06/02/2024 5:47 PM CDT [facility] SODIUM S/P/B 145 136 - 145 MMOL/L 06/02/2024 5:47 PM CDT [facility] POTASSIUM S/P/B 4.8 3.5 - 5.1 MMOL/L 06/02/2024 5:47 PM CDT [facility] CHLORIDE S/P/B 107 100 - 108 MMOL/L 06/02/2024 5:47 PM CDT [facility] CO2 30.3 21 - 32 MMOL/L 06/02/2024 5:47 PM CDT [facility] CALCIUM S/P/B 9.9 8.5 - 10.1 MG/DL 06/02/2024 5:47 PM CDT [facility] ANION GAP 7.7 5 - 15 MMOL/L 06/02/2024 5:47 PM CDT [facility] BUN CREATININE RATIO 8.4 6 - 26 06/02/2024 5:47 PM CDT [facility] GFR ESTIMATE 80(L) >90 ML/MIN/1.7 3 M2 06/02/2024 5:47 PM CDT [facility] Comment: NOTE: eGFR is not calculated for patients <18 years of age. This is an estimated GFR calculation using the new CKD EPI creatinine equation without race and so does not require a correction factor for race. This estimated GFR should not be used for calculating drug doses. 06/02/2024 3:43 PM CDT Dayanara Plaza MD LABORATORY Final Result Performing Organization Address [facility] Co de Phone Number [facility] [address] [place] [address], [place] [phone] * HEMOGLOBIN, GLYCOSYLATED (06/02/2024 3:43 PM CDT) HGB A1C 5.3 <5.7 % 06/02/2024 6:50 PM CDT [facility] Comment: INCREASED RISK OF DIABETES <5.7% ?NON-DIABETES 5.7-6.4% INCREASED RISK FOR FUTURE DIABETES > OR = 6.5 CONSISTENT WITH DIABETES STANDARDS OF MEDICAL CARE IN DIABETES-2010 DIABETES CARE, 33(SUPP 1): S1-S61,2010 ESTIMATED AVG GLUCOSE 105 mg/dL 06/02/2024 6:50 PM CDT [facility] 06/02/2024 3:43 PM CDT us Dayanara Plaza MD LABORATORY Final Result Performing Organization Address [facility] Co de Phone Number [facility] [address] [place] [address], [place] [phone] * TSH W/REFLEX (06/02/2024 3:43 PM CDT) TSH 0.707 0.358 - 3.74 uIU/ML 06/02/2024 5:47 PM CDT [facility] Comment: HIGH DOSES OF BIOTIN MAY INTERFERE WITH THIS TEST RESULT. CORRELATION TO CLINICAL HISTORY AND PRESENTATION RECOMMENDED. FREE T4 NOT INDICATED 06/02/2024 3:43 PM CDT Dayanara Plaza MD LABORATORY Final Result Performing Organization Address [facility] de Phone Number [facility] [address] [place] [address], [place] [phone] * VITAMIN D, 25 OH (06/02/2024 3:43 PM CDT) Pathologist [facility] VITAMIN D 25 HYDROXY S/P/B 51 30 - 100 NG/ML 06/02/2024 6:00 PM CDT [facility] Comment: ? INTERPRETATION ? DEFICIENT ??<20 ? INSUFFICIENT 20-29 ?SUFFICIENT 30-100 06/02/2024 3:43 PM CDT Dayanara Plaza MD LABORATORY Final Result Performing Organization Address [facility] de Phone Number [facility] [address] [place] [address], [place] [phone] documented in this encounter Visit Diagnoses Diagnosis Vitamin D deficiency Unspecified vitamin D deficiency Thyroid disorder screening Screening for thyroid disorder Weight gain Abnormal weight gain Diabetes mellitus screening Screening for diabetes mellitus Chronic anemia Anemia, unspecified Hypokalemia Hypopotassemia documented in this encounter Additional Health Concerns Assessment Noted Time PHQ-9 Depression Total Score: 0 04/03/20 24 10:56 AM CDT documented as of this encounter Care Teams Spray Drier Operator Relationship Specialty [place] [address] [address] [place] [address] PCP - General FAMILY PRACTICE 03/01/23 Perez Cervantes MD [address] [address] RHEUMATOLOGY 09/02/23 Adriana Ma MD [address] [place] [address] Referring Physician ALLERGY 09/02/23 documented as of this encounter
--- OUTSIDE RECORDS SUMMARY | 2024-11-13 17:10 | XMS_ITS | Encounter Summary ---
Author Organization [facility] Address [address] [place] [address]. [place], [place] [address] [place] [address] Care Team Providers Care Makeup Sales Consultant Name Role Phone Dayanara Plaza MD Primary Care Provider [phone] Perez Cervantes MD Unavailable Adriana Ma MD Unavailable [phone] Encounter Details Date Type Department Care Team (Late st Contact Info) Description 06/02/2024 4:00 PM CDT Laboratory Only [facility] Family & Internal Medicine - [place] [address] [place] [phone] Dayanara Plaza MD [address] [place] [address]. [address] [place] [address] Social History Tobacco Use Types Packs/Day Years [...] from your doctor or pharmacy? Never 05/23/2024 [facility] Utilities Answer Date Recorded In the past 12 months has e electric, gas, oil, or water company threatened to shut off services in your [...] Recorded Patient Health Questionnaire-2 Score 0 04/03/2024 [facility] of Occupat ional Health - Occupational Stress [...] any time in the past 12 m [facility], were you homeless or living in a fci (including now)? No 05/23/2024 Education Answer Date Recorded What is the highest level of school you have completed or the highest degree you have received? Master's degree (e.g., MA, MS, Howard, MEd, LOCOMOTIVE PIPE FITTER, KEKE) 12/21/2018 Comments No Sex and Gender [...] Author Status No 05/23/2024 5:13 PM CDT Johnson, Angélica K , RN Active documented as of this encounter Mental Status * Because of a physical, mental, or emotional condition, do you have serious difficulty concentrating, remembering, or making decisions? Answer Entry Date Author Status No 05/23/2024 5:13 PM CDT Angélica Johnson RN Active documented in this encounter Plan of Treatment Upcoming Encounters Date Type Department Care Team (Late st Contact Info) Description 11/14/2024 8:00 AM JEWEL HOLE GAUGER Office Visit [facility] Multispecialty Care - [facility] 3 [facility], [address] [place] [phone] Montserrat Oliver NP 3 [facility] [address] [place] [address] 12/06/2024 9:30 AM JEWEL HOLE GAUGER Appointment [facility] Open MRI [address] [place] [address] [place] [address] [place] [phone] 03/02/2025 3:20 PM CDT Office Visit [facility] Family & Internal Medicine - [address] [phone] [place] [address] [place] [phone] documented as of this encounter Goals Goal Patient Goal Type Associated Problems Recent Progress Patient-Stated? Author Family - family caregiver with be involved in care transitions and discharge planning Lifestyle No Nessa Pan, PLANT MAINTENANCE TECHNICIAN documented as of this encounter Procedures Procedure Name Priority Date/Time Associated Diagnosis Comments VENIPUNC ARM DRAW Routine 06/02/2024 3:44 PM CDT Hypokalemia Chronic anemia Diabetes mellitus screening Vitamin D deficiency documented in this encounter Visit Diagnoses Diagnosis Hypokalemia- Primary Hypopotassemia Chronic anemia Anemia, unspecified Diabetes mellitus screening Screening for diabetes mellitus Vitamin D deficiency Unspecified vitamin D deficiency documented in this encounter Additional Health Concerns Assessment Noted Time PHQ-9 Depression Total Score: 0 04/03/20 10:56 AM CDT documented as of this encounter Care Teams Makeup Sales Consultant Relationship Specialty [place] [address] [address] [place] [address] PCP - General FAMILY PRACTICE 03/01/23 Perez Cervantes MD [address] [place] [phone] RHEUMATOLOGY 09/02/23 Adriana Ma MD [address] [place] [address] Referring Physician ALLERGY 09/02/23 documented as of this encounter
--- OUTSIDE RECORDS SUMMARY | 2024-11-13 17:10 | XMS_ITS | Encounter Summary ---
Author Organization [facility] Address [address] [place] [address]. [place] [address] [place] [address] Care Team Providers Care Sba Business Development Officer Name Role Phone Dayanara Plaza MD Primary Care Provider [phone] Perez Cervantes MD Unavailable Adriana Ma MD Unavailable [phone] Encounter Details Date Type Department Care Team (Latest Contact Info) Description 06/02/2024 Travel Social History Tobacco Use Types Packs/Day [...] from your doctor or pharmacy? Never 05/23/2024 [facility] Utilities Answer Date Recorded In the [...] Recorded Patient Health Questionnaire-2 Score 0 04/03/2024 [facility] of Occupat ional Health - Occupational Stress [...] any time in the past 12 m [facility], were you homeless or living in a residential (including now)? No 05/23/2024 Education Answer Date Recorded What is the highest level of school you have completed or the highest degree you have received? Master's degree (e.g., MA, MS, Howard, MEd, FOREMAN/PROJECT MANAGER, KEKE) 12/21/2018 Comments No Sex and Gender [...] Ramirez RN Active documented in this encounter Plan of Treatment Upcoming Encounters Date Type Department Care Team (Late st Contact Info) Description 11/14/2024 8:00 AM DIP TANKER Office Visit [facility] Multispecialty Care - [facility] 3 [facility], [address] [place] [address] Montserrat Oliver, BRASS CHASER 3 [facility] [address] [place] [address] 12/06/2024 9:30 AM DIP TANKER Appointment [facility] Open MRI [address] [place] [address] [place] [address] [place] [phone] 03/02/2025 3:20 PM CDT Office Visit [facility] Family & Internal Medicine - [address] [phone] [place] [address] [place] [address] [phone] documented as of this encounter Goals Goal Patient Goal Type Associated Problems Recent Progress Patient-Stated? Author Family - family caregiver with be involved in care transitions and discharge planning Lifestyle No Nessa Pan, CLEANER CARPET AND UPHOLSTERY documented as of this encounter Visit Diagnoses Not on filedocumented in this encounter Additional Health Concerns Assessment Noted Time PHQ-9 Depression Total Score: 0 04/03/20 10:56 AM CDT documented as of this encounter Care Teams Sba Business Development Officer Relationship Specialty [place] [address] [place] [phone] PCP - General FAMILY PRACTICE 03/01/23 Perez Cervantes MD [address] [place] [address] RHEUMATOLOGY 09/02/23 Adriana aM MD [address] [place] [address] Referring Physician ALLERGY 09/02/23 documented as of this encounter
--- OUTSIDE RECORDS SUMMARY | 2024-11-13 17:10 | XMS_ITS | Encounter Summary ---
Author Organization [facility] Address [address] [place] [address]. [place] [address] [place] [address] Care Team Providers Care Knocker Out Name Role Phone Dayanara Plaza MD Primary Care Provider [phone] Perez Cervantes MD Unavailable Adriana Ma MD Unavailable [phone] Reason for Visit * Reason Onset Date Comments Follow Up Call 05/23/2024 SIA 05/23-05/30/24, TCM callback 05/31/24 Encounter Details Date Type Department Care Team (Latest Contact Info) Description 05/31/2024 [place] [address] Bonita Cole LPN Follow Up Call (SIA 05/23-05/30/24, TCM callback 05/31/24) Social History Tobacco Use Types Packs/Day Years [...] from your doctor or pharmacy? Never 05/23/2024 [facility] Utilities Answer Date Recorded In the past 12 months has th e [employer], gas, oil, or water [employer] threatened to shut off services in your [...] Recorded Patient Health Questionnaire-2 Score 0 04/03/2024 [facility] of Occupat ional Health - Occupational Stress [...] any time in the past 12 m [facility], were you homeless or living in a senior living (including now)? No 05/23/2024 Education Answer Date Recorded What is the highest level of school you have completed or the highest degree you have received? Master's degree (e.g., MA, MS, Howard, MEd, HOGSHEAD PACKER, KEKE) 12/21/2018 Comments No Sex and Gender [...] st Contact Info) Description 11/14/2024 8:00 AM ACOUSTICAL TILE PATTERNMAKER Office Visit [facility] Multispecialty Care - [facility] 3 [facility], [address] [place] [phone] Montserrat Oliver NP 3 [facility] [address] [place] [address] 12/06/2024 9:30 AM ACOUSTICAL TILE PATTERNMAKER Appointment [facility] Open MRI [address] [place] [address] [place] [address] [facility] [address]. [address] [place] [phone] 03/02/2025 3:20 PM CDT Office Visit [facility] Family & Internal Medicine - [address] [phone] [place] [address] [address] [place] [phone] documented as of this encounter Goals Goal Patient Goal Type Associated Problems Recent Progress Patient-Stated? Author Family - family caregiver with be involved in care transitions and discharge planning Lifestyle No Nessa Pan, MANUAL WINDER documented as of this encounter Visit Diagnoses Not on filedocumented in this encounter Additional Health Concerns Assessment Noted Time PHQ-9 Depression Total Score: 0 04/03/20 24 10:56 AM CDT documented as of this encounter Care Teams Knocker Out Relationship Specialty [place] [address] [address] [place] [address] PCP - General FAMILY PRACTICE 03/01/23 Perez Cervantes MD [address] [place] [phone] RHEUMATOLOGY 09/02/23 Adriana Ma MD [address] [place] [address] Referring Physician ALLERGY 09/02/23 documented as of this encounter
--- OUTSIDE RECORDS SUMMARY | 2024-11-13 17:10 | XMS_ITS | Encounter Summary ---
Author Organization [facility] Address [address] [place] [address]. [place] [address] [place] [address] Care Team Providers Care Loading Machine Operator Helper Name Role Phone Dayanara Plaza MD Primary Care Provider [phone] Perez Cervantes MD Unavailable Adriana Ma MD Unavailable [phone] Encounter Details Date Type Department Care Team (Latest Contact Info) Description 08/30/2024 Travel Social History Tobacco Use Types Packs/Day [...] from your doctor or pharmacy? Never 05/23/2024 [facility] Utilities Answer Date Recorded In [...] Recorded Patient Health Questionnaire-2 Score 0 04/03/2024 [facility] of Occupat ional Health - Occupational Stress [...] any time in the past 12 m [facility], were you homeless or living in a correction (including now)? No 05/23/2024 Education Answer Date Recorded What is the highest level of school you have completed or the highest degree you have received? Master's degree (e.g., MA, MS, Howard, MEd, FIELD OPERATIONS MANAGER, KEKE) 12/21/2018 Comments No Sex and [...] st Contact Info) Description 11/14/2024 8:00 AM PRINT JOURNALIST Office Visit [facility] Multispecialty Care - [facility] [address] [facility], [address] [place] [address] Montserrat Oliver, JAVA JSF DEVELOPER [address] [facility] [address] [place] [address] 12/06/2024 9:30 AM PRINT JOURNALIST Appointment [facility] Open MRI [address] [place] [address] [place] [address] [place] [address] [phone] 03/02/2025 3:20 PM CDT Office Visit [facility] Family & Internal Medicine - [address] [address] [place] [address] [place] [address] [phone] documented as of this encounter Goals Goal Patient Goal Type Associated Problems Recent Progress Patient-Stated? Author Family - family caregiver with be involved in care transitions and discharge planning Lifestyle No Nessa Pan, WHITEWATER RAFTING GUIDE documented as of this encounter Visit Diagnoses Not on filedocumented in this encounter Additional Health Concerns Assessment Noted Time PHQ-9 Depression Total Score: 0 04/03/20 10:56 AM CDT documented as of this encounter Care Teams Loading Machine Operator Helper Relationship Specialty [place] [address] [place] [address] [phone] PCP - General FAMILY PRACTICE 03/01/23 Perez Cervantes MD [address] [place] [address] RHEUMATOLOGY 09/02/23 Adriana Ma MD [address] [place] [address] 887129 Referring Physician ALLERGY 09/02/23 documented as of this encounter
--- OUTSIDE RECORDS SUMMARY | 2024-11-13 17:10 | XMS_ITS | Encounter Summary ---
Author Organization [facility] Address [facility] [place] [address] [place] [address] Care Team Providers Care Vehicle Mechanic Name Role Phone Dayanara Plaza MD Primary Care Provider Perez Cervantes MD Unavailable Adriana Ma MD Unavailable [phone] Reason for Referral * Procedure (Routine) - Closed Specialty Diagnoses / Procedures Referred By Contac t Referred To Contact [facility] Physical Therapy Diagnoses Tarsal tunnel syndrome, right lower limb Procedures EMG Riley Thompson DPM [address] [address] Phone: tel: fax: Hay Melara MD 1 [place] [address] Phone: tel: fax: Referral ID Status Reason Start Date Expiration Date Visits Re quested Visits Authorized [id number] Closed 08/30/2024 08/30/2025 1 1 Encounter Details Date Type Department Care Team (Late st Contact Info) Description 08/30/2024 Orders Only [facility] [place]patient [place] [address] Hay Melara MD [address] [place] [address] Social History Tobacco Use Types Packs/Day Years [...] from your doctor or pharmacy? Never 05/23/2024 [facility] Utilities Answer Date Recorded In the past 12 months has [facility] [employer], gas, oil, or water [employer] threatened to shut off services in your [...] Recorded Patient Health Questionnaire-2 Score 0 04/03/2024 [facility] [place] of Occupat ional Health - Occupational Stress [...] any time in the past 12 m [facility], were you homeless or living in a residential (including now)? No 05/23/2024 Education Answer Date Recorded What is the highest level of school you have completed or the highest degree you have received? Master's degree (e.g., MA, MS, Howard, MEd, GREEN JOBS TRAINER, KEKE) 12/21/2018 Comments No Sex and Gender [...] PM CDT Angélica Johnson RN Active * Because of [...] Date Author Status No 05/23/2024 5:13 PM TIARAT Angélica Johnson RN Active documented in this encounter Plan of Treatment Upcoming Encounters Date Type Department Care Team (Late st Contact Info) Description 11/14/2024 8:00 AM GUARDIAN FAMILY MEMBER Office Visit [facility] Multispecialty Care - [facility] [address] [facility], [address] [place] [address] Montserrat Oliver NP [address] [facility] [address] [place] [address] 12/06/2024 9:30 AM GUARDIAN FAMILY MEMBER Appointment [facility] Open MRI [address] [place] [address] [place] [address] [facility] [address] [place] [address] 03/02/2025 3:20 PM CDT Office Visit [facility] Medical [facility] Family & Internal Medicine - [place] [address] [place] [address] [place] [address] [facility] [place] [address] documented as of this encounter Goals Goal Patient Goal Type Associated Problems Recent Progress Patient-Stated? Author Family - family caregiver with be involved in care transitions and discharge planning Lifestyle No Nessa Pan, PROTECTION ANALYST documented as of this encounter Results * EMG (08/30/2024 2:44 PM CDT) 08/30/2024 2:44 PM CDT Narrative ESCRIPTION - 09/04/2024 12:49 PM CDT Patient Name: HANS PASCUAL Date of : 1965 Account: [id number] Facility: [facility] Location: [facility] Date of Service: 08/30/2024 EMG COMPLAINT: ??Right foot pain. Patient had EMG and nerve conduction performed of bilateral lower extremity. ??Results are as follows: SENSORY NERVE CONDUCTION STUDIES: Right sural: ??Latency of 3.95 with amplitude 9.7. Left sural: ??Latency of 3.55 with amplitude 13.9. Right superficial peroneal nerve: ??Latency of 2.6 with amplitude 13.3. MOTOR NERVE CONDUCTION STUDIES: Right common peroneal to EDB: ??Latency of 6.25 with amplitude 2.9, conduction velocity 47.4. Left common peroneal to EDB: ??Latency of 4.8 with amplitude 2.0, conduction velocity 41.7. Right tibial to adductor hallucis: ??Latency of 3.6 with amplitude 21.1, conduction velocity 46.6. Left tibial to adductor hallucis: ??Latency of 3.65 with amplitude 11.5, conduction velocity 44.9. Right tibial to ADQ pedis: ??Latency of 4.65 with amplitude 9.3, conduction velocity 44.6. Left tibial to ADQ pedis: ??Latency of 4.9 with amplitude 9.6, conduction velocity 40.8. EMG was performed of bilateral lower extremity. Right gastrocnemius lateral head, right gastrocnemius medial head, right tibialis anterior, right peroneus longus, right extensor hallucis longus. Left gastrocnemius lateral head, left gastrocnemius medial head, left tibialis anterior, left peroneus longus, left extensor hallucis longus. Normal insertional activity. ??No fibs, positive sharp waves or fasciculations. ??Motor units with normal amplitude and duration. ?? Recruitment pattern is normal. CONCLUSION: ??Normal study. No electrodiagnostic evidence for any generalized large fiber neuropathy or any focal neuropathy seen. No EDX evidence for any tarsal tunnel syndrome on the right. ??When compared to the left, the tibial nerve conduction velocity is slightly better on the right. Some of her symptoms might be musculoskeletal origin/small fiber neuropathy (clinical correlation is required). Signature/Date: ? HAY MELARA D: ??08/30/2024 03:04 PM ??#[id number] T: ??08/30/2024 04:06 PM ??/SKY Riley Thompson DPM NEUROLOGY ORDERABLES Final Resul t ESCRIPTION documented in this encounter Visit Diagnoses Diagnosis Tarsal tunnel syndrome, right lower limb- Primary Tarsal tunnel syndrome, right lower limb documented in this encounter Additional Health Concerns Assessment Noted Time PHQ-9 Depression Total Score: 0 04/03/20 24 10:56 AM CDT documented as of this encounter Care Teams Vehicle Mechanic Relationship Specialty [place] [address] [facility] [place] [address] PCP - General FAMILY PRACTICE 03/01/23 Perez Cervantes MD [address] [place] [address] RHEUMATOLOGY 09/02/23 Adriana Ma MD [address] [place] [address] Referring Physician ALLERGY 09/02/23 documented as of this encounter
--- OUTSIDE RECORDS SUMMARY | 2024-11-13 17:10 | XMS_ITS | Encounter Summary ---
Author Organization [facility] Address [address] [place] [address]. [place] [address] [place] [address] Care Team Providers Care Sand Technologist Name Role Phone Dayanara Plaza MD Primary Care Provider [phone] Perez Cervantes MD Unavailable Adriana Ma MD Unavailable [phone] Encounter Details Date Type Department Care Team (Latest Contact Info) Description 11/06/2024 Travel Social History Tobacco Use Types Packs/Day [...] your doctor or pharmacy? Never 05/23/2024 [facility] Utilities Answer Date Recorded In the [...] Patient Health Questionnaire-2 Score 0 04/03/2024 [facility] of Occupat ional Health - Occupational [...] any time in the past 12 m [facility], were you homeless or living in a group home (including now)? No 05/23/2024 Education Answer Date Recorded What is the highest level of school you have completed or the highest degree you have received? Master's degree (e.g., MA, MS, Howard, MEd, PIT INSPECTOR, KEKE) 12/21/2018 Comments No Sex and Gender [...] st Contact Info) Description 11/14/2024 8:00 AM STUDENT RECORDS COORDINATOR Office Visit [facility] Multispecialty Care - [facility] 3 [facility], [address] [place] [address] Montserrat Oliver, GROUP CARE WORKER [address] [facility] [address] [place] [address] 12/06/2024 9:30 AM STUDENT RECORDS COORDINATOR Appointment [facility] Open MRI [address] [facility] [place] [address] [place] [address] [place] [address] [phone] 03/02/2025 3:20 PM CDT Office Visit [facility] Family & Internal Medicine - [address] [address] [place] [address] [place] [phone] documented as of this encounter Goals Goal Patient Goal Type Associated Problems Recent Progress Patient-Stated? Author Family - family caregiver with be involved in care transitions and discharge planning Lifestyle No Nessa Pan, PERSONAL COUNSELOR documented as of this encounter Visit Diagnoses Not on filedocumented in this encounter Additional Health Concerns Assessment Noted Time PHQ-9 Depression Total Score: 0 04/03/20 10:56 AM CDT documented as of this encounter Care Teams Sand Technologist Relationship Specialty [place] [address] [place] [phone] PCP - General FAMILY PRACTICE 03/01/23 Perez Cervantes MD [address] [place] [address] RHEUMATOLOGY 09/02/23 Adriana Ma MD [address] [place] [address] Referring Physician ALLERGY 09/02/23 documented as of this encounter
--- OUTSIDE RECORDS SUMMARY | 2024-11-13 17:10 | XMS_ITS | Encounter Summary ---
Author Organization [facility] Address [address] [place] [address]. [place] [address] [place] [address] Care Team Providers Care Marketing Account Executive Name Role Phone Dayanara Plaza MD Primary Care Provider [phone] Perez Cervantes MD Unavailable Adriana Ma MD Unavailable [phone] Reason for Referral * Imaging (Routine) - Closed Specialty Diagnoses / Procedures Referred By Contac t Referred To Contact RADIOLOGY Diagnoses Abdominal pain Procedures CT ABD+PEL W CON Flip Sauer MD [address] [place] [address] Phone: tel: fax: Referral ID Status Reason Start Date Expiration Date Visits Re quested Visits Authorized [id number] Closed 08/02/2024 01/29/2025 1 1 Reason for Visit * Imaging (Routine) - Closed Specialty Diagnoses / Procedures Referred By Contac t Referred To Contact RADIOLOGY Diagnoses Abdominal pain Procedures CT ABD+PEL W CON Flip Sauer MD [address] [place] [address] Phone: tel: fax: Referral ID Status Reason Start Date Expiration Date Visits Re quested Visits Authorized [id number] Closed 08/02/2024 01/29/2025 1 1 Encounter Details Date Type Department Care Team (Latest Contact Info) Description 08/21/2024 3:09 PM CDT - 08/21/2024 11:59 PM CDT Hospital Encounter [facility] [place] [address] Flip Sauer MD [facility] [address] [phone] Discharge Disposition: Home or Self Care (Routine [...] from your doctor or pharmacy? Never 05/23/2024 [facility] Utilities Answer Date Recorded In the past 12 months has [employer], gas, oil, or water [employer] threatened to shut off services in your [...] Recorded Patient Health Questionnaire-2 Score 0 04/03/2024 [facility] of Occupat ional Health - Occupational Stress [...] any time in the past 12 m [facility], were you homeless or living in a snf (including now)? No 05/23/2024 Education Answer Date Recorded What is the highest level of school you have completed or the highest degree you have received? Master's degree (e.g., MA, MS, Howard, MEd, BACK TUFTER, KEKE) 12/21/2018 Comments No Sex and Gender [...] (two) times daily as needed for Pain. traZODone (DESYREL) 100 MG tabletIndications:In somnia due to other mental disorder Take 1.5 tablets (150 mg total) by mouth nightly at bedtime. 135 tablet 3 07/25/2024 valACYclovir 1 g tablet as needed. 10/10/2019 ondansetron (ZOFRAN-ODT) 8 MG disintegrating tablet Take 1 tablet (8 mg total) by mouth every 8 (eight) hours as needed for Nausea. 20 tablet 05/22/2024 4 oxyCODONE-acetaminop hen (PERCOCET) 5-325 MG tabletIndications:Ac lucas Pain < 3 Day Supply Take 1 tablet by mouth every 4 (four) hours as needed for Pain. Indications: Acute Pain < 3 Day Supply 12 tablet 05/21/2024 4 pantoprazole (PROTONIX) 40 MG packet Take 1 packet by mouth daily. 30 tablet 05/22/2024 4 documented as of this encounter Plan of Treatment Upcoming Encounters Date Type Department Care Team (Late st Contact Info) Description 11/14/2024 8:00 AM DRAFTER APPRENTICE Office Visit [facility] Multispecialty Care - [facility] [address] [facility], [address] [place] [address] Montserrat Oliver NP 3 [facility] [address] [place] [address] 12/06/2024 9:30 AM DRAFTER APPRENTICE Appointment [facility] MRI [address] [place] [address] [place] [address] [place], [place] [phone] 03/02/2025 3:20 PM CDT Office Visit [facility] Group Family & Internal Medicine [facility] [address] [place] [address] [place] [address] [facility] [place], [place] [phone] documented as of this encounter Goals Goal Patient Goal Type Associated Problems Recent Progress Patient-Stated? Author Family - family caregiver with be involved in care transitions and discharge planning Lifestyle No Nessa Pan, MATCH MARKER documented as of this encounter Procedures Procedure Name Priority Date/Time Associated Diagnosis Comments CT ABD+PEL W CON Routine 08/21/2024 3:37 PM CDT Abdominal pain documented in this encounter Results * CT ABD+PEL W CON (08/21/2024 3:37 PM CDT) Anatomical Region Laterality Modality Abdomen Computed Tomogra phy 08/22/2024 2:39 AM CDT Impressions 08/22/2024 3:42 AM CDT IMPRESSION: 1. ??No acute abnormality identified in the abdomen or pelvis. 2. ??Supraumbilical midline laparotomy incision site within expected limits. Referred By: FLIP SAUER Interpreted By: Rodrigo Crum MD, 08/22/2024 2:39 AM Narrative 08/22/2024 3:42 AM CDT [facility] 1 [place], [place] [address] INDICATION: Postoperative abdominal pain COMPARISON: CT abdomen/pelvis, 28 May 2024 TECHNIQUE: CT images of the abdomen and pelvis were obtained following the administration of IV contrast. Radiation dose reduction technique utilized. FINDINGS: Limited visualization of the lower thorax reveals no acute abnormality. Normal size liver. No suspicious hepatic lesion. Cholecystectomy. Hepatic veins, main portal vein, splenic vein, SMV, and SMA enhance. No retroperitoneal lymphadenopathy. No evidence of bowel obstruction or inflammation. Normal appearing appendix. No free gas in the upper pelvis. No mesenteric lymphadenopathy. Stomach and duodenum within normal limits. Normal size spleen. Incidental note of benign, calcified splenic granulomata. Pancreas within normal limits. Adrenal glands within normal limits. Kidneys enhance symmetrically. No hydronephrosis or hydroureter. Bladder is in postvoid state, limiting evaluation of the wall. Uterus and adnexa within normal limits for patient age. No pelvic lymphadenopathy or significant free fluid. Chronic degenerative changes of the hips, pubic symphysis, and sacroiliac joints. Chronic multilevel degenerative changes of the spine. Visualized body wall exhibits no acute abnormality. Supraumbilical midline incision within expected limits. Procedure Note Rodrigo Crum MD - 08/22/[address] [address] INDICATION: Postoperative abdominal pain COMPARISON: CT abdomen/pelvis, 28 May 2024 TECHNIQUE: CT images of the abdomen and pelvis were obtained following theadministration of IV contrast. Radiation dose reduction techniqueutilized. FINDINGS: Limited visualization of the lower thorax reveals no acute abnormality. Normal size liver. No suspicious hepatic lesion. Cholecystectomy. Hepaticveins, main portal vein, splenic vein, SMV, and SMA enhance. No retroperitoneal lymphadenopathy. No evidence of bowel obstruction or inflammation. Normal appearingappendix. No free gas in the upper pelvis. No mesentericlymphadenopathy. Stomach and duodenum within normal limits. Normal size spleen. Incidentalnote of benign, calcified splenic granulomata. Pancreas within normallimits. Adrenal glands within normal limits. Kidneys enhance symmetrically. No hydronephrosis or hydroureter. Bladder is in postvoid state, limiting evaluation of the wall. Uterus andadnexa within normal limits for patient age. No pelvic lymphadenopathy orsignificant free fluid. Chronic degenerative changes of the hips, pubic symphysis, and sacroiliacjoints. Chronic multilevel degenerative changes of the spine. Visualized body wall exhibits no acute abnormality. Supraumbilical midlineincision within expected limits. IMPRESSION: 1. No acute abnormality identified in the abdomen or pelvis. 2. Supraumbilical midline laparotomy incision site within expectedlimits. Referred By: FLIP SAUER Interpreted By: Rodrigo Crum MD, 08/22/2024 2:39 AM us Flip Sauer MD CT Final Resul t documented in this encounter Visit Diagnoses Diagnosis Abdominal pain Abdominal pain, unspecified site documented in this encounter Administered Medications Inactive Administered Medications - up to 3 most recent administrations Medication Order MAR Action Action Date Dose Rate Site iopamidol (ISOVUE-370) 76 % injection 100 mL 100 mL, Intravenous, IMG once as needed, Contrast, 1 dose, Starting on Wed08/21/24 at 1537, Until Wed08/21/24 at 1537 Given 08/21/2024 3:37 PM CDT 100 mLs documented in this encounter Additional Health Concerns Assessment Noted Time PHQ-9 Depression Total Score: 0 04/03/20 10:56 AM CDT documented as of this encounter Care Teams Marketing Account Executive Relationship Specialty [place] [address] [facility]. [address] [place] [address] PCP - General FAMILY PRACTICE 03/01/23 Perez Cervantes MD [address] [place] [phone] RHEUMATOLOGY 09/02/23 Adriana Ma MD [address] [place] [address] Referring Physician ALLERGY 09/02/23 documented as of this encounter
--- OUTSIDE RECORDS SUMMARY | 2024-11-13 17:10 | XMS_ITS | Encounter Summary ---
Author Organization [facility] Address [address] [place] [address]. [place] [address] [place] [address] Care Team Providers Care Commercial Announcer Name Role Phone Dayanara Plaza MD Primary Care Provider [phone] Perez Cervantes MD Unavailable Adriana Ma MD Unavailable [phone] Encounter Details Date Type Department Care Team (Latest Contact Info) Description 08/21/2024 Travel Social History Tobacco Use Types Packs/Day [...] from your doctor or pharmacy? Never 05/23/2024 [facility] Utilities Answer Date Recorded In the [...] Recorded Patient Health Questionnaire-2 Score 0 04/03/2024 [facility] of Occupat ional Health - [...] any time in the past 12 m [facility], were you homeless or living in a fpc (including now)? No 05/23/2024 Education Answer Date Recorded What is the highest level of school you have completed or the highest degree you have received? Master's degree (e.g., MA, MS, Howard, MEd, METALLOGRAPHIC TECHNICIAN, KEKE) 12/21/2018 Comments No Sex and Gender [...] st Contact Info) Description 11/14/2024 8:00 AM FLATWORK ASSEMBLER Office Visit [facility] Multispecialty Care - [facility] [address] [facility], [address] [place] [address] Montserrat Oliver, TALENT ACQUISITION SOURCER 3 [facility] [address] [place] [address] 12/06/2024 9:30 AM FLATWORK ASSEMBLER Appointment [facility] Open MRI [address] [facility] [place] [address] [place] [address] [place] [address] [phone] 03/02/2025 3:20 PM CDT Office Visit [facility] Family & Internal Medicine - [address] [address] [place] [address] [place] [address] [phone] documented as of this encounter Goals Goal Patient Goal Type Associated Problems Recent Progress Patient-Stated? Author Family - family caregiver with be involved in care transitions and discharge planning Lifestyle No Nessa Pan, LAN/WAN ENGINEER documented as of this encounter Visit Diagnoses Not on filedocumented in this encounter Additional Health Concerns Assessment Noted Time PHQ-9 Depression Total Score: 0 04/03/20 10:56 AM CDT documented as of this encounter Care Teams Commercial Announcer Relationship Specialty Start [place] [address] [place] [phone] PCP - General FAMILY PRACTICE 03/01/23 Perez Cervantes MD [address] [place] [address] RHEUMATOLOGY 09/02/23 Adriana Ma MD [address] [place] [address] 975379 Referring Physician ALLERGY 09/02/23 documented as of this encounter
--- OUTSIDE RECORDS SUMMARY | 2024-11-13 17:10 | XMS_ITS | Encounter Summary ---
Author Organization [facility] Address [address] [place] [address]. [place], [place] [id number] [place] [address] Care Team Providers Care Spar Cap Beveler Name Role Phone Dayanara Plaza MD Primary Care Provider [phone] Perez Cervantes MD Unavailable Adriana Ma MD Unavailable [phone] Encounter Details Date Type Department Care Team (Late st Contact Info) Description 07/18/2024 [facility] Message Enc [facility] Medical Group Family & Internal Medicine [facility] [id number] [place] [phone] Day[place] Plaza [place] [id number] [place] [address]. [address] [place] [address] Pertussis Vaccine? Social History Tobacco Use Types Packs/Day Years [...] from your doctor or pharmacy? Never 05/23/2024 [facility] Utilities Answer Date Recorded In the past [...] Recorded Patient Health Questionnaire-2 Score 0 04/03/2024 [facility] [place] of Occupat ional Health - Occupational Stress [...] any time in the past 12 m [facility], were you homeless or living in a intermediate (including now)? No 05/23/2024 Education Answer Date Recorded What is the highest level of school you have completed or the highest degree you have received? Master's degree (e.g., MA, MS, Howard, MEd, COLLAR FUSER, KEKE) 12/21/2018 Comments No Sex and Gender [...] st Contact Info) Description 11/14/2024 8:00 AM ELECTRICAL MAINTENANCE MAN Office Visit [facility] Multispecialty Care - [facility] 3 [facility], [address] [place] [phone] Montserrat Oliver NP 3 [facility] [address] [place] [address] 12/06/2024 9:30 AM ELECTRICAL MAINTENANCE MAN Appointment [facility] Open MRI [address] [place] [address] [place] [address] [place] [phone] 03/02/2025 3:20 PM CDT Office Visit [facility] Family & Internal Medicine - [address] [address] [place] [address] [place] [phone] documented as of this encounter Goals Goal Patient Goal Type Associated Problems Recent Progress Patient-Stated? Author Family - family caregiver with be involved in care transitions and discharge planning Lifestyle No Nessa Pan, CITY SUPERINTENDENT documented as of this encounter Visit Diagnoses Not on filedocumented in this encounter Additional Health Concerns Assessment Noted Time PHQ-9 Depression Total Score: 0 04/03/20 24 10:56 AM CDT documented as of this encounter Care Teams Spar Cap Beveler Relationship Specialty Start Date End Date Dayanara Plaza MD [address] [place] [address] [address] [place] [address] PCP - General FAMILY PRACTICE 03/01/23 Perez Cervantes MD [address] [address] RHEUMATOLOGY 09/02/23 Adrinaa Ma MD [address] [place] [address] Referring Physician ALLERGY 09/02/23 documented as of this encounter
--- OUTSIDE RECORDS SUMMARY | 2024-11-13 17:10 | XMS_ITS | Encounter Summary ---
Author Organization [facility] Address [address] [place] [address]. [place], [place] [phone] [place] [address] Care Team Providers Care Supervisor Shipping Name Role Phone Dayanara Plaza MD Primary Care Provider [phone] Perez Cervantes MD Unavailable Adriana Ma MD Unavailable [phone] Reason for Visit * Reason Onset Date Comments TCM 05/31/2024 Encounter Details Date Type Department Care Team (Late st Contact Info) Description 05/31/2024 Telephone [facility] Medical Group Family & Internal Medicine [facility] [id number] [place] [phone] [place] Plaza [place] [address] [place] [address]. [address] [place] [address] TCM Social History Tobacco Use Types [...] from your doctor or pharmacy? Never 05/23/[address] [facility] Utilities Answer Date Recorded In the past 12 months has [employer], gas, oil, or water [employer] threatened to shut off services in your [...] Health Questionnaire-2 Score 0 04/03/2024 [facility] of Occupat ional Health - Occupational [...] any time in the past 12 m [facility], were you homeless or living in a mcc (including now)? No 05/23/2024 Education Answer Date Recorded What is the highest level of school you have completed or the highest degree you have received? Master's degree (e.g., MA, MS, Howard, MEd, ADULT BASIC EDUCATION MANAGER, KEKE) 12/21/2018 Comments No Sex and [...] Author Status No 05/23/2024 5:13 PM TIARAT Johnson, Angéilca K , RN Active documented as of this encounter Mental Status * Because of a physical, mental, or emotional condition, do you have serious difficulty concentrating, remembering, or making decisions? Answer Entry Date Author Status No 05/23/2024 5:13 PM CDT Angélica Johnson RN Active documented in this encounter Progress Notes * Cheryle Corley RN - 05/31/2024 10:16 AM CDT Images from the original note were not included. Follow up call to patient post hospitalization Date of hospital discharge: 05/30/24 Patient discharged from: [facility] Discharge diagnosis/diagnoses: SBO Procedures performed while inpatient: Yes. CT A/P (05/23): mid to distal small bowel obstruction NG placed in ER at [facility] NPO/IVF Pain Control - monitor for toxicity Anti-emetics Surgery Consulted 05/23 SB X-ray: Diffuse small bowel dilatation, contrast does not reach the large bowel by 3 hours, suggesting moderate to high-grade obstruction S/p exploratory laparotomy and lysis of adhesions 05/23/24 Post op per surgery Up in chair, ambulate NG tube removed 05/25 Diet advanced to general 05/28 Increased pain/loose stools Repeat CT A/P: Mild diffuse ileus Per surgery recommends regular diet Begin the medication reconciliation process (completed at first face to face visit): CONTINUE taking these medications Morning Afternoon Evening Bedtime As Needed ALPRAZolam 0.25 MG tablet Commonly known as: XANAX Take 1 tablet (0.25 mg total) by mouth nightly as needed for Anxiety or Sleep. FOR ANXIETY Signed by: Dr. Dayanara Plaza dicyclomine 20 MG tablet Commonly known as: BENTYL Take 1 tablet (20 mg total) by mouth every 6 (six) hours as needed. Signed by: Dr. Dayanara Plaza estradiol 0.1 MG/GM vaginal cream Commonly known as: ESTRACE Place vaginally daily. etanercept 50 MG/ML injection Commonly known as: ENBREL Inject 1 mL (50 mg total) into the skin weekly. Notes to patient: WEEKLY fexofenadine 180 MG tablet Commonly known as: PIYUSH Take 1 tablet (180 mg total) by mouth daily. folic acid 1 MG tablet Commonly known as: FOLVITE Take 1 tablet (1 mg total) by mouth daily. methotrexate 2.5 MG tablet Commonly known as: TREXALL Take by mouth once a week. Take 6 tablets every 7 days. Notes to patient: WEEKLY montelukast 10 MG tablet Commonly known as: SINGULAIR TAKE 1 TABLET (10 MG TOTAL) BY MOUTH DAILY. Signed by: Dr. Dayanara Plaza nabumetone 500 MG tablet Commonly known as: RELAFEN Take 1 tablet (500 mg total) by mouth 2 (two) times daily as needed for Pain. ondansetron 8 MG disintegrating tablet Commonly known as: ZOFRAN-ODT Take 1 tablet (8 mg total) by mouth every 8 (eight) hours as needed for Nausea. Last time this was given: Ask your nurse or doctor Signed by: Dr. Hayley Ruano Last time this was given: Ask your nurse or doctor oxyCODONE-acetaminophen 5-325 MG tablet Commonly known as: PERCOCET Take 1 tablet by mouth every 4 (four) hours as needed for Pain. Indications: Acute Pain < 3 Day Supply Signed by: Dr. Sam Gage pantoprazole 40 MG packet Commonly known as: PROTONIX Take 1 packet by mouth daily. Last time this was given: Ask your nurse or doctor Signed by: Dr. Hayley Ruano Last time this was given: Ask your nurse or doctor traZODone 100 MG tablet Commonly known as: DESYREL Take 1.5 tablets (150 mg total) by mouth nightly at bedtime. Signed by: Dr. Dayanara Plaza valACYclovir 1 g tablet Commonly known as: VALTREX as needed. Last time this was given: 2,000 mg on May 29, 2024 8:05 PM Last time this was given: May 29, 2024 8:05 PM STOP taking these medications cefdinir 300 MG Caps capsule Commonly known as: OMNICEF metroNIDAZOLE 500 MG tablet Commonly known as: FLAGYL Any follow up services needed: Yes. (surgeon) on 06/05/24 Education on self management: Yes. Independent with ADL's. Assess adherence with treatment (medication) regimen and provide support. Does patient have access to care and services (rides, etc)? Yes, lives with Appointment scheduled for follow up in the office (7 days if high complexity or within 14 days for medium complexity) Appointment Date: 06/02/24 Time: 1500 documented in this encounter Plan of Treatment Upcoming Encounters Date Type Department Care Team (Late st Contact Info) Description 11/14/2024 8:00 AM FISH FILLETER Office Visit [facility] Multispecialty Care - [facility] 3 [facility], [address] [place] [address] Montserrat Oliver NP 3 [facility] [address] [place] [address] 12/06/2024 9:30 AM FISH FILLETER Appointment [facility] Open MRI [address] [place] [address] [place] [address] [place] [address] 03/02/2025 3:20 PM CDT Office Visit [facility] Family & Internal Medicine - [place] [phone] [place] [phone] [place] [address] [place] [address] documented as of this encounter Goals Goal Patient Goal Type Associated Problems Recent Progress Patient-Stated? Author Family - family caregiver with be involved in care transitions and discharge planning Lifestyle No Nessa Pan, SAMPLE EXAMINER documented as of this encounter Visit Diagnoses Not on filedocumented in this encounter Additional Health Concerns Assessment Noted Time PHQ-9 Depression Total Score: 0 04/03/20 10:56 AM CDT documented as of this encounter Care Teams Supervisor Shipping Relationship Specialty [place] [address] [place], [place] [phone] PCP - General FAMILY PRACTICE 03/01/23 Perez Cervantes MD [address] [place] [address] RHEUMATOLOGY 09/02/23 Adriana Ma MD [address] [place] [id number] Referring Physician ALLERGY 09/02/23 documented as of this encounter
--- OUTSIDE RECORDS SUMMARY | 2024-11-13 17:10 | XMS_ITS | Encounter Summary ---
Author Organization [facility] Address [address] [place] [address]. [place] [address] [place] [address] Care Team Providers Care Fire Extinguisher Installer Name Role Phone Dayanara Plaza MD Primary Care Provider [phone] Perez Cervantes MD Unavailable Adriana Ma MD Unavailable [phone] Reason for Visit * Auth/Cert Specialty Diagnoses / Procedures Referred By Contkayden t Referred To Contact Diagnoses SBO Procedures GENERAL Sydni Sarkar, DO 1 [place] [address] Phone: tel: fax: Referral ID Status Reason Start Date Expiration Date Visits Re quested Visits Authorized [id number] 1 1 Encounter Details Date Type Department Care Team (Late st Contact Info) Description 05/23/2024 2:56 PM CDT Anesthesia Event [facility] OR [address] [place], [place] [id number] Damian Almaguer MD [address] [facility] [address] [address] Keron Al, [address] [place] [address] Anesthesia Record Procedure Summary Procedure Name Responsible Anesthesiologist Anesthesia Start Time Anesthesia Stop Time LAPAROTOMY EXPLORATORY, LYSIS OF ADHESIONS (Abdomen) Damian Almaguer MD 05/23/24 1456 05/23/24 1611 Events Date Time Event Comment 05/23/2024 1420 1420 AN Anesthesia Prepped 1456 An Start Patient ID and consent checked and patient reassessed. 1456 An Start Data 1456 Quick Note Irina Rossi on, SRNA introduced to the patient and the patient verbally consents for the SRNA to participate in all appropriate aspects of perioperative care under the direct supervision of the CUSTOMER RETENTION REPRESENTATIVE. CUSTOMER RETENTION REPRESENTATIVE remains present for continuous supervision of the SRNA and maintains responsibility for documentation. 1501 Preoxygenation 1503 An Induction The patient was reevaluated immediately before moderate or deep sedation use and before anesthesia induction. 1505 An Intubation 1508 Anesthesia Ready 1553 An Emergence 1602 An Extubation 1604 Face Mask Applied 1606 an stop data 1610 Post Anesthetic Care Handoff I completed my handoff to the receiving nurse during which we: 1. Identified the patient 2. Identified the responsible provider 3. Reviewed the pertinent medical history 4. Discussed the surgical course 5. Reviewed intra-op anesthesia management and issues during anesthesia 6. Set expectations for post-procedure period 7. Allowed opportunity for questions and acknowledgement of understanding. 1611 An Stop Meds Name Total propofol (DIPRIVAN) 200 mg/20 mL injecti on 150 mg midazolam 2 mg/2 mL injection 2 mg succinylcholine (ANECTINE) 20 mg/mL inje ction 120 mg lidocaine (PF) (XYLOCAINE) 2% injection 100 mg fentaNYL (SUBLIMAZE) 100 mcg/2 mL inject ion 100 mcg rocuronium (ZEMURON) 50 mg/5 mL injectio n 30 mg dexamethasone (DECADRON) injection 8 mg sugammadex (BRIDION) 500 mg/5 mL injecti on 500 mg lactated ringers infusion 600 mL * Agents Name O2 Air Inspired Sevoflurane Sevoflurane * Blood No blood administrations on file. Lines, Drains, and Airways Type Details Placement Removal NG/OG Tube Placement Date: 08/08; Placement Time: 0400; Inserted By: Jasmine Yen; Tube Type: Nasogastric; Tube Size: 18 Fr.; Tube Location: Left nostril; Removal Date: 05/25/24; Removal Time: 1439 05/23/24 0400 by Jasmine Last RN 05/25/24 143 by Iris Ellsworth RN Peripheral IV Placement Date: 08/08; Placement Time: 0904; Placed Outside of This Facility?: Yes; Size: 20 G; Orientation: Distal, Left; Location: Forearm; Removal Date: 05/27/24; Removal Time: 1214; Removal Reason: Infiltrated 05/23/24 0904 by Lory Polanco RN 05/27/24 1214 by Sonya Pfeiffer RN Peripheral IV Placement Date: 08/08; Placement Time: 1455; Placed Outside of This Facility?: No; Size: 20 G; Orientation: Right; Location: Wrist; Site Prep: Chlorhexidine; Local Anesthetic: None; Insertion attempts: 1; Ultrasound-guided Placement?: No; Patient Tolerance: Tolerated well; Removal Date: 05/27/24; Removal Time: 1215; Removal Reason: Leaking 05/23/24 145 by Ashley Verduzco RN 05/27/24 1215 by Sonya Pfeiffer RN ETT Placement Date: 08/08; Placement Time: 1505; Size (mm) : 7; Endotracheal: Oral; Blade Type: MAC 3; Placement Method: Direct Laryngoscopy (blade type in comment), Cricoid pressure, Other (comments) (Bougie); View Grade: 1; Viewable Anatomy: Epiglottis, Arytenoid, Vocal cords; Insertion Attempts: 2 (SRNA 1st attempt); Placement Verified By: Capnography, Auscultation, Chest Rise; Placed By: CUSTOMER RETENTION REPRESENTATIVE; Extubation Assessment: Suctioned, Able to swallow, Moves all extremities strongly, Deep breathes w/equal chest movements, Atraumatic, Tolerated well; Removal Date: 05/23/24; Removal Time: 1602; Removal Person: CUSTOMER RETENTION REPRESENTATIVE; Removal Reason: End of Case 05/23/24 1505 by Keron Al CRNA 05/23/24 1602 by Keron Al CRNA Allen Catheter 05/23/24; 1510; No; I & O - Strict I&O or Critically ill requiring I&O Q1-2hrs; 1; Hand hygiene performed, Catheter inserted using aseptic technique, Drainage bag secured below level of bladder, Site cleansed with sterile antiseptic, Allen care post catheter insertion, Closed system maintained, Sterile gloves, drape and lubricant used, Anchoring device applied; Stat lock; Latex; 16 Fr.; End of Case 05/23/24 1510 by Cristina Hunt RN 05/23/24 1605 by Cristina Hunt RN Surgical/Incision 05/23/24; 1553; Surg ical Wound; Abdomen; Other (Comment); 05/23/24; 1622 05/23/24 1553 by Cristina Hunt RN 05/23/24 1622 by Jerri Eden RN Surgical/Incision 05/23/24; 1553; Surg ical Wound; Abdomen; Midline incision closed with suture and augustine. Covered with 4x4, and tape. Abdominal binder placed.; 05/30/24; 1223 05/23/24 1553 by Cristina Hunt RN 05/30/24 1223 by Automatic Discharge Provider documented in this encounter Social History Tobacco Use Types Packs/Day Years [...] doctor or pharmacy? Never 05/23/2024 [facility] Utilities Answer Date Recorded In the past 12 months has [facility] [employer], gas, oil, or water [employer] threatened to shut off services in your [...] Recorded Patient Health Questionnaire-2 Score 0 04/03/2024 [facility] of Occupat ional [facility] - Occupational Stress Questionnaire Answer Date [...] any time in the past 12 m [facility], were you homeless or living in a fci (including now)? No 05/23/2024 Education Answer Date Recorded What is the highest level of school you have completed or the highest degree you have received? 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 No 05/23/2024 5:13 PM TIARAT Angélica Johnson RN A ctive * Question Answer Date of Assessment Author Status Do you have difficulty dressing or bathing? No 05/23/2024 5:13 PM TIARAT Angélica Johnson RN Active Because of a physical, mental, or emotional condition, do you have difficulty doing errands alone such as visiting a doctor's office or shopping? No 05/23/2024 5:13 PM TIARAT Angélica Johnson RN Ac tive * Are you deaf or do you have serious difficulty hearing Answer Date of Assessment Author Status No 05/23/2024 5:13 PM Angélica Ramirez RN Active * Are you blind or do you have serious difficulty seeing, even when wearing glasses? Answer Date of Assessment Author Status No 05/23/2024 5:13 PM Angélica Ramirez RN Active * Do you have serious difficulty walking or climbing stairs? Answer Date of Assessment Author Status No 05/23/2024 5:13 PM Angélica Ramirez RN Active * Do you have difficulty dressing or bathing? Answer Date of Assessment Author Status No 05/23/2024 5:13 PM Angélica Ramirez RN Active * Because of a physical, mental, or emotional condition, do you have difficulty doing errands alone such as visiting a doctor's office or shopping? Answer Date of Assessment Author Status No 05/23/2024 5:13 PM Angélica Ramirez RN Active documented as of this encounter Mental Status * Question Answer Entry Date Author Status Because of a physical, mental, or emotional condition, do you have serious difficulty concentrating, remembering, or making decisions? No 05/23/2024 5:13 PM CDT Angélica Johnson RN Active * Because of a physical, mental, or emotional condition, do you have serious difficulty concentrating, remembering, or making decisions? Answer Entry Date Author Status No 05/23/2024 5:13 PM CDT Angélica Johnson RN Active documented in this encounter OR Notes * Anesthesia Postprocedure Evaluation - Damian Almaguer MD - 05/24/2024 5:59 AM CDT Anesthesia Post-op Note Sharalyn Tockstein Procedure(s): LAPAROTOMY EXPLORATORY, LYSIS OF ADHESIONS (Abdomen) Anesthesia type: general Vitals: 05/24/24 0400 BP: 135/71 Vitals: 05/24/24 0400 Pulse: 77 Vitals: 05/24/24 0400 Resp: 16 Vitals: 05/24/24 0400 Temp: 36.6 ??C Vitals: 05/24/24 0400 SpO2: 93% Patient Location: Inpatient Unit Level of Consciousness: awake, alert and oriented Pain Management: adequate analgesia Airway Patency: patent Respiratory Status: acceptable Cardiovascular Status: acceptable and stable Post-Op Nausea: none Postoperative Hydration: euvolemic There were no known notable events for this encounter. * Anesthesia Postprocedure Evaluation - Damian Almaguer MD - 05/23/2024 4:56 PM CDT Anesthesia Post-op Note Sharalyn Tockstein Procedure(s): LAPAROTOMY EXPLORATORY, LYSIS OF ADHESIONS (Abdomen) Anesthesia type: general Vitals: 05/23/24 1645 BP: 135/74 Vitals: 05/23/24 1645 Pulse: 80 Vitals: 05/23/24 1645 Resp: 10 Vitals: 05/23/24 1615 Temp: 37.2 ??C Vitals: 05/23/24 1645 SpO2: 91% Patient Location: PACU Level of Consciousness: awake, alert and oriented Pain Management: adequate analgesia Airway Patency: patent Respiratory Status: acceptable Cardiovascular Status: acceptable and stable Post-Op Nausea: none Postoperative Hydration: euvolemic No notable events documented. * Anesthesia Preprocedure Evaluation - Damian Almaguer MD - 05/23/2024 2:15 PM CDT Anesthesia ROS/MED History Reviewed: Patient summary , Nursing notes , ECG, Family history anesthesia, Anesthesia history , Medications , Labs , Images/Studies Pre-Anesthetic State: alert, awake and responds appropriately Pulmonary ROS comment: Seasonal allergies Cardiovascular (-) Valvular problems/Murmurs Neuro/Psych (+) anxiety Comments: Insomnia Substance Use (+) smoker (not active according to patient) GI/Hepatic/Renal (+) GERD Comments: Dysphagia IBS Endo/Other (+) obese, arthritis, (rheumatoid) GENERAL COMMENTS EKG Interpretive Statements SINUS RHYTHM Compared to ECG 09/01/2023 11:48:43 No significant changes Past Medical History: No date: Anxiety surgery 2020: Cataract No date: COVID-19 No date: GERD (gastroesophageal reflux disease) No date: IBS (irritable bowel syndrome) No date: Plantar fasciitis No date: RA (rheumatoid arthritis) ([facility]) Past Surgical History: No date: CHOLECYSTECTOMY 03/17/2021: COLONOSCOPY No date: COLONOSCOPY No date: EXTRACT ERUPT TOOTH 2020: EYE SURGERY Comment: cataract extraction 09/10/2023: FOOT SURGERY; Right No date: LAMINECTOMY,LUMBAR No date: SEPTOPLASTY NPO Status: Physical Evaluation Airway Mallampati: II TM Distance: >3 FB Neck ROM: normal Dental No notable dental history Pulmonary Pulmonary exam normal Breath sounds clear to auscultation Cardiovascular Rhythm: regular Rate: normal Cardiovascular exam normal Other findings: Blood pressure 118/75, pulse 74, temperature 36.7 ??C, temperature source Oral, resp. rate 18, weight 82.6 kg (182 lb 1.6 oz), SpO2 96%. 05/23/24 0110 WBC 8.97 RBC 4.11* HGB 13.8 HCT 39.8 PLT 245 NA 140 K 3.6 CL 103 CO2 25.2 AGAP 11.8 BUN 19* CR 1.07* BUNCREATININ 17.8 GLU 112* CA 10.0 STOP-Bang Assessment: Anesthesia Plan ASA 2 Emergent Intravenous Induction Anesthesia type: general Plan for Airway: ETT Plan for Vascular: arterial line and second IV Plan for Post-op Pain Plan: oral pain medication, IV analgesics and as per surgeon Discussed potential risks of General Anesthesia with possible arterial line monitoring including but not limited to pain and bruising at arterial line puncture site, vascular injury or nerve injury to radial artery or radial nerve respectively, corneal abrasion, visual impairment or visual loss, mouth injury, dental damage, sore throat, hoarseness, esophageal injury, awareness under anesthesia, nerve injury due to positioning, aspiration, pneumonia, stroke, cardiac event, adverse drug reactionsand . Informed Consent Anesthetic plan and risks discussed with patient of whom consent was obtained. . documented in this encounter Plan of Treatment Upcoming Encounters Date Type Department Care Team (Late st Contact Info) Description 11/14/2024 8:00 AM UNIVERSAL GRINDER OPERATOR Office Visit [facility] Multispecialty Care - [facility] 3 [facility], [address] [place] [phone] Montserrat Oliver NP 3 [facility] [address] [place] [address] 12/06/2024 9:30 AM UNIVERSAL GRINDER OPERATOR Appointment [facility] MRI [address] [place] [address] [place] [address] [facility] [address] [place] [phone] 03/02/2025 3:20 PM CDT Office Visit [facility] Family & Internal Medicine - [address] [phone] [place] [address] [address] [place] [address] documented as of this encounter Goals Goal Patient Goal Type Associated Problems Recent Progress Patient-Stated? Author Family - family caregiver with be involved in care transitions and discharge planning Lifestyle No Nessa Pan, INSURANCE HEALTHCARE REPRESENTATIVE documented as of this encounter Visit Diagnoses Not on filedocumented in this encounter Administered Medications Inactive Administered Medications - up to 3 most recent administrations Medication Order MAR Action Action Date Dose Rate Site dexamethasone (DECADRON) injection Intravenous, PRN, Starting on Wed05/23/24 at 1523, Until Wed05/23/24 at 1611, Anesthesia Intra-Op Given 05/23/2024 3:23 PM CDT 8 mg fentaNYL (SUBLIMAZE) injection Intravenous, PRN, Starting on Wed05/23/24 at 1516, Until Wed05/23/24 at 1611, Anesthesia Intra-Op Given 05/23/2024 3:55 PM CDT 25 mcg Given 05/23/2024 3:20 PM CDT 25 mcg Given 05/23/2024 3:16 PM CDT 50 mcg lactated ringers infusion Intravenous, Continuous PRN, Starting on Wed05/23/24 at 1503, Until Wed05/23/24 at 1611, Anesthesia Intra-Op New Bag 05/23/2024 3:03 PM CDT lidocaine (PF) (XYLOCAINE) 2 % injection Intravenous, PRN, Starting on Wed05/23/24 at 1503, Until Wed05/23/24 at 1611, Anesthesia Intra-Op Given 05/23/2024 3:03 PM CDT 100 mg midazolam (VERSED) injection Intravenous, PRN, Starting on Wed05/23/24 at 1457, Until Wed05/23/24 at 1611, Anesthesia Intra-Op Given 05/23/2024 2:57 PM CDT 2 mg propofol (DIPRIVAN) IV bolus Intravenous, PRN, Starting on Wed05/23/24 at 1503, Until Wed05/23/24 at 1611, Anesthesia Intra-Op Given 05/23/2024 3:03 PM CDT 150 mg rocuronium (ZEMURON) injection Intravenous, PRN, Starting on Wed05/23/24 at 1516, Until Wed05/23/24 at 1611, Anesthesia Intra-Op Given 05/23/2024 3:16 PM CDT 30 mg succinylcholine (ANECTINE) injection Intravenous, PRN, Starting on Wed05/23/24 at 1503, Until Wed05/23/24 at 1611, Anesthesia Intra-Op Given 05/23/2024 3:03 PM CDT 120 mg sugammadex (BRIDION) injection Intravenous, PRN, Starting on Wed05/23/24 at 1554, Until Wed05/23/24 at 1611, Anesthesia Intra-Op Given 05/23/2024 4:00 PM CDT 150 mg Given 05/23/2024 3:54 PM CDT 350 mg documented in this encounter Additional Health Concerns Assessment Noted Time PHQ-9 Depression Total Score: 0 04/03/20 10:56 AM CDT documented as of this encounter Care Teams Fire Extinguisher Installer Relationship Specialty [place] [address] [facility]. [address] [place] [address] PCP - General FAMILY PRACTICE 03/01/23 Perez Cervantes MD [address] [place] [address] RHEUMATOLOGY 09/02/23 Adriana Ma MD [address] [place] [address] Referring Physician ALLERGY 09/02/23 documented as of this encounter
--- OUTSIDE RECORDS SUMMARY | 2024-11-13 17:10 | XMS_ITS | Encounter Summary ---
Author Organization [facility] Address [address] [place] [address]. [place], [place] [address] [place] [address] Care Team Providers Care Automatic Teller Machine Servicer Name Role Phone Dayanara Plaza MD Primary Care Provider [phone] Peerz Cervantes MD Unavailable Adriana Ma MD Unavailable [phone] Encounter Details Date Type Department Care Team (Latest Contact Info) Description 07/25/2024 Shogether Message Enc [facility] Family & Internal Medicine [facility] [address] [place] [phone] [place] [phone] [place] [address]. [address] [place] [address] Mail order prescriprion [facility] [place] Social History Tobacco Use Types Packs/Day Years [...] from your doctor or pharmacy? Never 05/23/2024 [facility] Utilities Answer Date Recorded In the past 12 months has [facility] [employer], gas, oil, or water [employer] threatened to shut off services in your [...] Recorded Patient Health Questionnaire-2 Score 0 04/03/2024 [facility] of Occupat ional Health - Occupational Stress [...] any time in the past 12 m [facility], were you homeless or living in a correction (including now)? No 05/23/2024 Education Answer Date Recorded What is the highest level of school you have completed or the highest degree you have received? Master's degree (e.g., MA, MS, Howard, MEd, HELPDESK TECHNICIAN, KEKE) 12/21/2018 Comments No Sex and [...] Progress Notes * Cheryle Corley RN - 07/25/2024 11:59 AM CDTFrom: Hans Pascual To: Dr. Dayanara Plaza Sent: 07/25/2024 11:05 AM CDT Subject: Mail order prescriprion [facility] I would like to transfer my Trazadone RX to [facility] but they said they have been unable me to reach you. Please let them know! Thank you! documented in this encounter Plan of Treatment Upcoming Encounters Date Type Department Care Team (Late st Contact Info) Description 11/14/2024 8:00 AM COMPLIANCE EXAMINER Office Visit [facility] Multispecialty Care - [facility] 3 [facility], [address] [place] [phone] Montserrat Oliver NP 3 [facility] [address] [place] [address] 12/06/2024 9:30 AM COMPLIANCE EXAMINER Appointment [facility] Open MRI [address] [place] [address] [place] [address] [facility]. [address] [place] [phone] 03/02/2025 3:20 PM CDT Office Visit [facility] Family & Internal Medicine - [address] [phone] [place] [address] [facility] [address] [place] [phone] documented as of this encounter Goals Goal Patient Goal Type Associated Problems Recent Progress Patient-Stated? Author Family - family caregiver with be involved in care transitions and discharge planning Lifestyle No Nessa Pan, HEAD OF ART documented as of this encounter Visit Diagnoses Diagnosis Insomnia due to other mental disorder documented in this encounter Additional Health Concerns Assessment Noted Time PHQ-9 Depression Total Score: 0 04/03/20 24 10:56 AM CDT documented as of this encounter Care Teams Automatic Teller Machine Servicer Relationship Specialty [place] [address] [facility] [place] [address] PCP - General FAMILY PRACTICE 03/01/23 Perez Cervantes MD [address] [phone] RHEUMATOLOGY 09/02/23 Adriana Ma MD [address] [place] [address] Referring Physician ALLERGY 09/02/23 documented as of this encounter
--- OUTSIDE RECORDS SUMMARY | 2024-11-13 17:10 | XMS_ITS | Encounter Summary ---
Author Organization [facility] Address [address] [place] [address]. [place] [address] [place] [address] Care Team Providers Care Vice President Medical Affairs Name Role Phone Dayanara Plaza MD Primary Care Provider [phone] Perez Cervantes MD Unavailable Adriana Ma MD Unavailable [phone] Encounter Details Date Type Department Care Team (Latest Contact Info) Description 08/29/2024 Scan HEALTH INFO [facility] Scanned, Doc [facility] Social History Tobacco Use Types Packs/Day Years [...] from your doctor or pharmacy? Never 05/23/2024 [facility] Utilities Answer Date Recorded In [...] Recorded Patient Health Questionnaire-2 Score 0 04/03/2024 [facility] of Occupat ional Health - [...] any time in the past 12 m [facility], were you homeless or living in a [facility]p (including now)? No 05/23/2024 Education Answer Date Recorded What is the highest level of school you have completed or the highest degree you have received? Master's degree (e.g., MA, MS, Howard, MEd, ALUMNI COORDINATOR, KEKE) 12/21/2018 Comments No Sex and Gender [...] st Contact Info) Description 11/14/2024 8:00 AM POND WORKER Office Visit [facility] Multispecialty Care - [facility] 3 [facility], [address] [place] [address] Montserrat Oliver, RIVET HAMMER MACHINE OPERATOR 3 [facility] [address] [place] [address] 12/06/2024 9:30 AM POND WORKER Appointment [facility] Open MRI [address] [place] [address] [place] [address] [facility] [address] [place], [place] [phone] 03/02/2025 3:20 PM CDT Office Visit [facility] Family & Internal Medicine - [place] [phone] [place] [phone] [place] [address] [place] [phone] documented as of this encounter Goals Goal Patient Goal Type Associated Problems Recent Progress Patient-Stated? Author Family - family caregiver with be involved in care transitions and discharge planning Lifestyle No Nessa Pan, GRAPE CUTTER documented as of this encounter Visit Diagnoses Not on filedocumented in this encounter Additional Health Concerns Assessment Noted Time PHQ-9 Depression Total Score: 0 04/03/20 24 10:56 AM CDT documented as of this encounter Care Teams Vice President Medical Affairs Relationship Specialty Start [place] [address] [address] [facility] [address] [place], [place] [phone] PCP - General FAMILY PRACTICE 03/01/23 Perez Cervantes MD [address] [place] [address] RHEUMATOLOGY 09/02/23 Adriana Ma MD [address] [place] [address] Referring Physician ALLERGY 09/02/23 documented as of this encounter
--- OUTSIDE RECORDS SUMMARY | 2024-11-13 17:10 | XMS_ITS | Encounter Summary ---
Author Organization [facility] Address [address] [place] [address]. [place] [address] [place] [address] Care Team Providers Care Photograph Developer Name Role Phone Dayanara Plaza MD Primary Care Provider [phone] Perez Cervantes MD Unavailable Adriana Ma MD Unavailable [phone] Encounter Details Date Type Department Care Team (Late st Contact Info) Description 07/04/2024 Orders Only [facility] Family & Internal Medicine - [place] [id number] [place] [phone] Dayan[place] Plaza MD [id number] [place] [address]. [address] [place] [id number] Social History Tobacco Use Types Packs/Day [...] or pharmacy? Never 05/23/[address] [facility] Utilities Answer Date Recorded In the [...] Patient Health Questionnaire-2 Score 0 04/03/2024 [facility] - Occupational Stress Questionnaire Answer Date [...] any time in the past 12 m ont, were you homeless or living in a mcc (including now)? No 05/23/2024 Education Answer Date Recorded What is the highest level of school you have completed or the highest degree you have received? Master's degree (e.g., MA, MS, Howard, MEd, [employer], KEKE) 12/21/2018 Comments No Sex and Gender [...] st Contact Info) Description 11/14/2024 8:00 AM MAIL EXAMINER Office Visit [facility] - [facility] [address] [facility], [address] [place] [phone] Montserrat Oliver NP [address] [facility] [address] [place] [address] 12/06/2024 9:30 AM MAIL EXAMINER Appointment [facility] [address] [place] [address] [place] [address] [facility] [facility] [place] [id number] 03/02/2025 3:20 PM CDT Office Visit [facility] Family & Internal Medicine - [address] [phone] [place] [address] [facility] [place] [id number] documented as of this encounter Goals Goal Patient Goal Type Associated Problems Recent Progress Patient-Stated? Author Family - family caregiver with be involved in care transitions and discharge planning Lifestyle No Nessa Pan, DISEASE INTERVENTION SPECIALIST documented as of this encounter Procedures Procedure Name Priority Date/Time Associated Diagnosis Comments TSH W/REFLEX FT3 AND FT4 Routine 07/04/2024 7:41 AM CDT LIPID PANEL Routine 07/04/2024 7:41 AM CDT documented in this encounter Results * (ABNORMAL) LIPID PANEL (07/04/2024 7:41 AM CDT) CHOLESTEROL 187 <200 mg/dL [facility] HDL 57 > OR = 50 mg/dL [facility] TRIGLYCERIDES 102 <150 mg/dL [facility] LDL (CALCULATED) 110(H) mg/dL (calc) [facility] Comment: Reference range: <100 Desirable range <100 mg/dL for primary prevention; ?? <70 mg/dL for patients with CHD or diabetic patients with > or = 2 CHD risk factors. LDL-C is now calculated using the Lynne calculation, which is a validated novel method providing better accuracy than the Friedewald equation in the estimation of LDL-C. Tor SS et al. JACKELYN. 2013;310(19): 8825-2138 (http://education.[employer]/faq/FON879) CHOL/HDL RATIO 3.3 <5.0 (calc) [facility] NON HDL CHOLESTEROL 130(H) <130 mg/dL (calc) [facility] Comment: For patients with diabetes plus 1 major ASCVD risk factor, treating to a non-HDL-C goal of <100 mg/dL (LDL-C of <70 mg/dL) is considered a therapeutic option. 07/04/2024 7:41 AM CDT 07/04/2024 7:42 AM CDT Narrative [facility] - [facility] - 07/05/2024 6:39 AM CDT FASTING:YES FASTING: YES Resulting Agency Comment Performing Organization Information: ?Site ID: [id number] ?Name: [facility] ?Address: [address] [place] [address] ?Director: Adry Berger MD us Dayanara Plaza MD LABORATORY Final Result [facility] - [facility] [facility] [address] [place] [address], * TSH W/REFLEX FT3 AND FT4 (07/04/2024 7:41 AM CDT) TSH 1.14 0.40 - 4.50 mIU/L [facility] Comment: Our records indicate that you have ordered a client custom reflex order code. Only the initial test was performed because we do not have a client custom reflex testing authorization request form on file for you. Please contact a client integration manager if you would like additional testing done on this patient or contact your product sales engineer to obtain a client custom reflex testing authorization request form. 07/04/2024 7:41 AM CDT 07/04/2024 7:42 AM CDT Narrative [facility] - [place] [facility] - 07/05/2024 6:39 AM CDT FASTING:YES FASTING: YES Resulting Agency Comment Performing Organization Information: ?Site ID: [id number] ?Name: [facility] ?Address: [address] [place] [phone] ?Director: Adry Berger MD us Dayanara Plaza MD LABORATORY Final Result [facility] - [facility] [id number] documented in this encounter Visit Diagnoses Not on filedocumented in this encounter Additional Health Concerns Assessment Noted Time PHQ-9 Depression Total Score: 0 04/03/20 24 10:56 AM CDT documented as of this encounter Care Teams Photograph Developer Relationship Specialty [place] [address] [facility] [address] [place] [phone] PCP - General FAMILY PRACTICE 03/01/23 Perez Cervantes MD [address] [phone] RHEUMATOLOGY 09/02/23 Adriana Ma MD [address] [place] [id number] Referring Physician ALLERGY 09/02/23 documented as of this encounter
--- OUTSIDE RECORDS SUMMARY | 2024-11-13 17:10 | XMS_ITS | Encounter Summary ---
Author Organization [facility] Address [address] [place] [address]. [place], [place] [id number] [place] [id number] Care Team Providers Care Tank Wagon Operator Name Role Phone Dayanara Plaza MD Primary Care Provider [phone] Perez Cervantes MD Unavailable Adriana Ma MD Unavailable [phone] Reason for Referral * Imaging (Emergency) - New Request Specialty Diagnoses / Procedures Referred By Contac t Referred To Contact RADIOLOGY Procedures CT ABD+PEL W CON [facility] Med/Surg [address] [place] [address] Phone: tel: Referral ID Status Reason Start Date Expiration Date V isits Requested Visits Authorized [id number] New Request 05/28/2024 05/28/2025 1 1 Reason for Visit * Auth/Cert Specialty Diagnoses / Procedures Referred By Contac t Referred To Contact Diagnoses SBO Procedures GENERAL Sydni Sarkar, DO 1 [place] [address] Phone: tel: fax: Referral ID Status Reason Start Date Expiration Date Visits Re quested Visits Authorized [id number] 1 1 Encounter Details Date Type Department Care Team (Late st Contact Info) Description 05/23/2024 7:37 AM CDT - 05/30/2024 10:22 AM CDT Hospital Encounter [facility] Med[facility]Surg 3rd Floor [address] [place] [address] Sydni Sarkar, DO 1 [facility] [place] [address] Sonya Cantrell, DO 1 . [facility] [place] [address] Discharge Disposition: Home or Self Care (Routine [...] from your doctor or pharmacy? Never 05/23/2024 [facility] Utilities Answer Date Recorded In the past 12 months has [facility] [employer], gas, oil, or water [employer] threatened to shut off services in your [...] Recorded Patient Health Questionnaire-2 Score 0 04/03/2024 [facility] Occupat ional [facility] - Occupational Stress Questionnaire Answer Date [...] any time in the past 12 m [facility], were you homeless or living in a group home (including now)? No 05/23/2024 Education Answer Date Recorded What is the highest level of school you have completed or the highest degree you have received? Master's degree (e.g., MA, MS, Howard, MEd, PRODUCT ASSURANCE ENGINEER, KEKE) 12/21/2018 Comments No Sex and Gender [...] Sign Reading Time Taken Comments Blood Pressure 109/70 05/30/2024 8:11 AM CDT Pulse 72 05/30/2024 8:11 AM CDT Temperature 37.2 ??C (99 ??F) 05/30/2024 8:11 AM CDT Respiratory Rate 16 05/30/2024 8:11 AM CDT Oxygen Saturation 98% 05/30/2024 8:11 AM CDT Inhaled Oxygen Concentration - - Weight 82.6 kg (182 lb 1.6 oz) 05/24/2024 3:17 P M CDT Height 172.7 cm (5' 7.99 ) 05/24/2024 3:17 PM CD T Body Mass Index 27.69 05/24/2024 3:17 PM CDT documented in this encounter Functional Status * Question Answer Date of Assessment Author Status Do you have serious difficulty walking or climbing stairs? No 05/23/2024 5:13 PM CDT Angélica Johnson RN A ctive * Question Answer Date of Assessment Author Status Do you have difficulty dressing or bathing? No 05/23/2024 5:13 PM CDT Angélica Johnson RN Active Because of a physical, mental, or emotional condition, do you have difficulty doing errands alone such as visiting a doctor's office or shopping? No 05/23/2024 5:13 PM CDT Angélica Johnson RN Ac tive * Are [...] or making decisions? No 05/23/2024 5:13 PM Angélica Ramirez RN Active * Because of a physical, mental, or emotional condition, do you have serious difficulty concentrating, remembering, or making decisions? Answer Entry Date Author Status No 05/23/2024 5:13 PM Angélica Ramirez RN Active documented in this encounter Discharge Summaries * Sonya Cantrell DO - 05/30/2024 10:22 AM CDT Images from the original note were not included. Hospitalist Discharge Summary Patient ID: Hans Pascual. female. 1965. Admit date: 05/23/2024 7:37 AM Discharge date: 05/30/2024 10:22 AM Admitting Physician: Sydni Sarkar DO Primary Care Physician: Dayanara Plaza MD Discharge Physician: Sonya Cantrell DO Primary Diagnoses: SBO Admission Condition: fair Discharged Condition: Stable Code Status: Full Code Chief Complaint: No chief complaint on file. Reason for hospitalization: SBO HPI per admitting physician: Hans Pascual is a 59-year-old female with a past medical history significant for GERD, IBS, rheumatoid arthritis, and depression/anxiety who presented to [facility] in [place] emergency room with ongoing abdominal pain, nausea, and vomiting. Patient initially went to the ER on 05/[address] imaging at that time revealed enteritis and patient was sent home on painmedication and antibiotics. Patient states early Wednesday morning, she started with intractable nausea and vomiting with worsening abdominal pain. Patient return to the emergency room yesterday morningand was given antiemetic emetics and discharged home. Patient states then last evening, she startedwith worsening pain, nausea, and vomiting again. Repeat imaging in the emergency room revealed a developed small bowel obstruction. Patient was subsequently transferred to our facility for further management and treatment. Patient had an NG tube placed at [facility] ER and patient states she is feeling slightly improved. She still has abdominal pain, but more tolerable with medications. She denies any fever, chills, shortnessof breath, headache, or lower extremity edema. Patient's last bowel movement was 05/20/2024. Patient d enies any tobacco, alcohol, or drug use. History obtained via chart review, discussion with patient and spouse at bedside, and review of outside records from previous ER visits, rheumatology notes, and PCP notes. Hospital Course: SBO Ms. Pascual transferred from [facility] after 3 consecutive ER visits for worsening abd pain. CT A/P (05/23): mid to distal small bowel obstruction NG placed in ER at [facility] NPO/IVF Pain Control - monitor for toxicity [...] diffuse ileus Per surgery recommends regular diet Tolerating general diet. Pain controlled. Ok for discharge per surgery, outpatient follow up after discharge Hypokalemia Replete and monitor Recommend repeat labs next week with PCP GERD/IBS PPI Cold sore Known hx, takes valtrex as needed Valtrex 2gm BID x1 day Outpatient follow up RA Maintained on Methotrexate Follows with [facility] Depression/Anxiety Restart home meds SDOH Reviewed, none as of 05/23 DVT Prophylaxis: Heparin SQ Code status: Full Code Discharge plan discussed with patient Discharge Exam: Filed Vitals: 05/29/24 1937 05/29/24 2258 05/30/24 0450 05/30/24 0811 BP: 121/72 122/74 123/74 109/70 Pulse: 76 74 74 72 Resp: 18 20 18 16 Temp: 98.2 ??F (36.8 ??C) 98.1 ??F (36.7 ??C) 97.7 ??F (36.5 ??C) 99 ??F (37.2 ??C) TempSrc: Axillary Axillary Axillary SpO2: 99% 100% 98% Weight: Height: -GENERAL: No acute distress, Well nourished -HEAD: Normocephalic, Atraumatic -EYES: Extraocular movements intact -LUNGS: Effort normal. Clear to auscultation bilaterally, No wheezes, No crackles, No ronchi -CVS: Regular rate and rhythm -EXT: No edema -NEURO: Awake, alert, oriented, No gross neuro deficits -SKIN: No significant rashes Consults: general surgery Significant Diagnostic Studies: Recent Labs Lab 05/24/24 0626 05/25/24 0610 05/26/24 0554 05/27/24 0525 05/28/24 0514 05/29/24 0515 05/30/24 0646 WBC 10.43 8.51 6.56 4.54 4.49* 4.41* 4.04* RBC 3.74* 3.45* 3.45* 3.32* 3.50* 3.17* 3.50* HGB 12.1 11.5* 11.5* 10.9* 11.4* 10.3* 11.2* HCT 37.5* 35.4* 34.7* 35.1* 34.0* 30.6* 34.7* MCV 100.3* 102.6* 100.6* 105.7* 97.1 96.5 99.1* MCH 32.4* 33.3* 33.3* 32.8* 32.6* 32.5* 32.0* MCHC 32.3 32.5 33.1 31.1* 33.5 33.7 32.3 PLT 217 186 195 192 217 208 255 RDW 15.3* 15.0* 14.3 14.3 14.3 14.2 14.6* MPV 10.4 10.4 10.6 10.2 10.5 10.3 10.7 PERNEU 73.1 69.7 61.4 53.1 60.6 59.2 -- PERLYM 15.7 17.3 25.5 32.2 26.3 24.7 -- PERMON 10.5 10.9 9.6 11.2 10.7 13.4 -- NEUC 7.62 5.93 4.03 2.41 2.72 2.61 2.63 LYMC 1.64 1.47 1.67 1.46 1.18 1.09 0.93* MONOC 1.10* 0.93* 0.63 0.51 0.48 0.59 0.36 EOSC 0.00* 0.13 0.18 0.13 0.09 0.10 0.12 BASOC 0.02 0.02 0.04 0.02 0.01 0.01 -- DTYPE AUTOMATED DIFFERENTIAL AUTOMATED DIFFERENTIAL AUTOMATED DIFFERENTIAL AUTOMATED DIFFERENTIAL AUTOMATED DIFFERENTIAL AUTOMATED DIFFERENTIAL MANUAL DIFFERENTIAL Recent Labs Lab 05/24/24 0626 05/25/24 0610 05/26/24 0554 05/27/24 0525 05/28/24 0514 05/29/24 0515 05/30/24 0646 NA 143 140 138 140 140 142 142 K 3.7 3.3* 3.3* 3.6 3.1* 3.2* 3.5 CL 114* 110* 110* 115* 109* 113* 113* CO2 20.8* 25.5 21.2 19.5* 26.1 22.1 22.1 AGAP 8.2 4.5* 6.8 5.5 4.9* 6.9 6.9 BUN 26* 14 6* 4* 5* 4* 3* CR 0.62 0.59 0.62 0.52* 0.61 0.49* 0.57 BUNCREATININ 41.7* 23.6 9.7 7.6 8.2 8.2 5.3* GLU 96 128* 91 86 85 80 95 CA 9.0 8.9 9.3 8.9 9.1 8.4* 9.2 No results for input(s): CHOL , TRI , HDL , LDL , HGBA1C , TSH in the last 168 hours. No results for input(s): APTT , INR , PTT in the last 168 hours. No results for input(s): TROP , TROPIWB , CKMB , CPK in the last 168 hours. No results for input(s): LACTICACID , PROCT in the last 168 hours. No results for input(s): PH , PCO2 , PO2 , E0MTQFAJKITC , BICARBWB , BASEDEFICIT , BASEEXCESS in the last 168 hours. Results for orders placed or performed during the hospital encounter of 05/21/24 URINALYSIS, AUTO, COMPLETE Result Value Ref Range COLOR (U) YELLOW TRANSPARENCY CLEAR SPECIFIC GRAVITY (U) 1.010 1.000 - 1.030 U PH 7.5 5.0 - 9.0 LEUKOCYTES (U) NEGATIVE NEGATIVE NITRITES NEGATIVE NEGATIVE PROTEIN RANDOM (U) NEGATIVE NEGATIVE GLUCOSE (U) NEGATIVE NEGATIVE KETONES (U) NEGATIVE NEGATIVE BILIRUBIN (U) NEGATIVE NEGATIVE BLOOD (U) NEGATIVE NEGATIVE WBC/HPF NONE SEEN 0 - 5 /HPF RBC/HPF NONE SEEN 0 - 5 /HPF EPI/HPF RARE /HPF Radiology Reports : CT ABD+PEL W CON Result Date: 05/28/2024 CT ABDOMEN AND PELVIS WITH CONTRAST Exam date:05/28/2024 9:05 AM Clinical history: Abdomen pain. Technique: Dynamic helical images of the abdomen and pelvis were obtained. The patient received approximately 100 mL of Isovue 370 nonionic intravenous contrast through an IV in the right antecubital fossa. A dose lowering technique was used for this procedure, which may include, but is not limited to,dose reduction technique, automated exposure control, the use of iterative reconstruction, and ALARA (As Low As Reasonably Achievable) / Image Gently techniques. Comparison: None. FINDINGS: Images ofthe lower thorax demonstrate a mild right pleural effusion with concomitant atelectasis in the right lower lobe. The visualized portion of the heart appears normal. Images of the abdomen demonstrate the overall size and morphology of the liver to be within normal limits. No hepatic lesions are observed. No ascites is seen. The gallbladder is surgically absent. The pancreas, spleen, and adrenal glands appear grossly normal. The kidneys are normal in size bilaterally. There is normal symmetric enhancement after the administration of contrast. No stones or hydronephrosis is apparent. Both ureters follow normal expected course through the retroperitoneum. Images of the pelvis demonstrate the urinary bladder to appear normal. The uterus is atrophic but otherwise within normal limits. The stomach is within normal limits. The small bowel is fluid-filled but nondistended. There is no evidence of obstruction. Multiple air-fluid levels are noted throughout the small bowel and colon suggesting mild diffuse ileus. The terminal ileum and appendix appear normal. The colon appears grossly normal. No adenopathy or abnormal fluid collections are present IMPRESSION: 1. Mild diffuse ileus 2. Mild right pleural effusion with concomitant atelectasis Ordered By: LIAN SAUER Interpreted By: Caleb Rodriguez MD, 05/28/2024 9:30 AM XR SMALL BOWEL Result Date: 05/23/2024 EXAMINATION: SMALL BOWEL FOLLOW-THROUGH EXAM DATE: 05/23/2024 10:08 AM REASON FOR EXAM: Small bowel obstruction COMPARISON: CT 05/23/2024 2:40 AM TECHNIQUE: Utilization Review Specialist image of the abdomen was obtained, oral contrast was administered by NG tube. Images of the abdomen were obtained 20, 4 0, 60, 90, 120, 180 minutes after administration. FINDINGS: Utilization Review Specialist image demonstrates moderate smallbowel dilatation. NG tube is well-positioned within the stomach. At 20 and 40 and 60 minutes, contrast migrates within the small bowel and reaches the midportion small bowel, distal small bowel loopsremain unopacified. Consistent with small bowel obstruction. By 3 hours, contrast did not reach thelarge bowel, suggesting moderate to high-grade obstruction. Large bowel loops are mostly collapsed. IMPRESSION: 1. Diffuse small bowel dilatation, contrast does not reach the large bowel by 3 hours, suggesting moderate to high-grade obstruction. Ordered By: LIAN SAUER Interpreted By: Archie Clayton, 05/23/2024 2:02 PM XR CHEST PORTABLE Result Date: 05/23/2024 EXAMINATION: XR Portable CXR, 1 View INDICATION: Confirmation of Gastric Tube Placement. COMPARISON: CTA chest, abdomen and pelvis with contrast 05/21/2024. Portable AP chest x-ray 05/24/2018. FINDINGS:There is an enteric tube with sidehole in the fundus of the stomach and tip in the region of the distal fundus or proximal body of stomach. 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 Mild calcifications in the aortic arch. The cardiomediastinal silhouette is otherwise within normal limits. Pulmonary vascularity is normal. Small right pleural effusion is better seen on the comparison CT abdomen and pelvis exam of same date. There is mild prominence of interstitial markings in the lowerlobes, right more than left. No significant left pleural effusion. Upper lobes remain clear. No acute osseous abnormality. IMPRESSION: 1. Placement of enteric tube with tip in the distal fundus or proximal body of stomach.2. Small right pleural effusion, better seen on comparison CT abdomen and pelvis exam of same date.3. Mild prominence of interstitial markings in the lower lobes, right more than left, mild interstit ial pulmonary edema versus atypical pneumonia. Referred By: Interpreted By: Doris Leon MD, 05/23/2024 4:[address] ABD+PEL W IV CON ONLY Result Date: 05/23/2024 CT of the abdomen and pelvis with contrast INDICATION: Diffuse abdominal pain. Comparison is 05/21/2024. TECHNIQUE: Axial, coronal and sagittal images from the lung bases through the pubic symphysis with intravenous contrast. Radiation dose reduction technique(s) were used. FINDINGS: There is a smallright pleural effusion, new from the previous study. No basal infiltrates. Left lower lobe granuloma noted. Cholecystectomy is noted. The liver, spleen, pancreas, adrenals and kidneys appear normal. There is a very small amount of ascites. No upper abdominal or periaortic adenopathy. Scans of the pelvis show no mass, lymphadenopathy or free fluid. No bladder wall thickening or bladder calculus. The stomach is unremarkable. There are numerous distended fluid-filled small bowel loops up to 3.3 cmin diameter. The distal ileum is collapsed. Findings indicate a mid to distal small bowel obstruction, likely due to an adhesion. There is mild mesenteric edema. The appendix is normal. The colon is u nremarkable. No free peritoneal air. No hernias are identified. Degenerative changes noted at the lumbosacral disc. No acute bony abnormality. IMPRESSION: Mid to distal small bowel obstruction, likely due to an adhesion. Mild associated ascites. Small right pleural effusion. Referred By: Interpreted By: Toney Blackmon MD, 05/23/2024 2:54 AM ECG 12 lead Result Date: 05/22/2024 [facility] Test Date: 2024-05-22 Pat Name: HANS PASCUAL Department: 85 Room: EXAM 505 Gender: Female Psychology Tech: : 1965 Requested By: NIMISHA RUANO Order Number: [id number] Reading MD: Guanako Hancock Measurements Intervals [place] Rate: 73 P: 82 NJ:168 QRS: 58 QRSD: 89 T: 48 QT: 381 QTc: 422 Interpretive Statements SINUS RHYTHM Compared to ECG 09/01/2023 11:48:43 No significant changes CTA CHEST+ABD+PEL Result Date: 05/21/2024 Examination: CTA CHEST+ABD+PEL Exam time: 05/21/2024 4:48 PM INDICATION: Severe mid to left abdominalpain for one day. TECHNIQUE: After administration of 75 mL Isovue-370 IV contrast via the right arm, arterial phase multidetector CT images were obtained through the chest, abdomen, and pelvis. Multiplanar and MIP images were created and reviewed. In addition, 3D image processing was performed on a separate workstation by a technologist, with images sent to PACS for review. A dose lowering technique was used for this procedure, which may include, but is not limited to, dose reduction techniques, automated exposure control, the use of a iterative reconstruction, and ALARA (as low as reasonablyachievable)/image gently techniques. COMPARISON: None FINDINGS: CHEST: There is no evidence for thoracic aortic aneurysm or dissection. The origins of the great vessels are patent. There is no pulmonary embolism noted. There is evidence for previous granulomatous disease. Mild linear scarring or subsegmental atelectasis is noted in the left lower lobe. No airspace consolidation, pleural effusion,or pneumothorax. The central airways are patent. There is no lymphadenopathy. No pericardial effusion. No acute osseous abnormality. Abdomen/pelvis: There is no evidence for abdominal aortic aneurysmor dissection. The common and external iliac arteries are normal in caliber. The mesenteric vesselsare patent. There are patent single renal arteries. The liver and spleen are normal in size and contour. Cholecystectomy. The pancreas is unremarkable. No adrenal mass. No hydronephrosis. There is symmetric renal enhancement. There is no ureteral calculus. There is no calculus in the urinary bladder. There is no evidence for appendicitis. There is moderate mesenteric edema/stranding in the left mid and lower abdomen. There is no bowel obstruction or free intraperitoneal air. Evaluation for bowel wall thickening is essentially precluded due to the phase of enhancement. There is a 1.6 cm oval fat density lesion in a mid to distal jejunal bowel loop, evidence for a lipoma. There is no lymphadenopathy noted. There is no drainable fluid collection or abscess. No acute osseous abnormality. IMPRESSION: 1. There is moderate mesenteric edema/stranding in the left mid and lower abdomen, nonspecific but presumably related to enteritis. There is no evidence for a bowel obstruction. There is no drainable fluid collection or abscess noted. 2. There are no acute findings noted in the chest. Referred By: Interpreted By: Garcia Cosby MD, 05/21/2024 5:17 PM Discharge Medications: Medication List CONTINUE taking these medications Morning Afternoon Evening [...] your nurse or doctor Signed by: Dr. Nimisha Ruano Last time this was given: Ask [...] your nurse or doctor Signed by: Dr. Nimisha Ruano Last time this was given: Ask [...] 500 MG tablet Commonly known as: FLAGYL Disposition: Home with self care Patient Instructions: Follow-up appointments: PCP Time Spent on Discharge: more than 30 minutes Signed: SONYA CANTRELL DO documented in this encounter Discharge Instructions * Discharge Instructions* Hilaria Chapa RN - 05/30/2024 10:[address] Sauer office to make follow up appt. --- augustine to be removed at follow up appt in 1-2 weeks. Okay to shower - let water/soap run over incision, dont rub or scrub the area. Pat dry with clean towel. Keep cover with dry dressing. Always wash hands before touching dressing or incision. * Attachments The following attachments cannot be sent through Care Everywhere. * Lysis of Adhesions Discharge Instructions (Faroese) documented in this encounter Medications at Time [...] 05/22/2024 oxyCODONE-acetaminop hen (PERCOCET) 5-325 MG tabletIndications:Ac lucas [...] 05/11/2024 4 documented as of this encounter Progress Notes * Nessa Pan, ORDER PROCESSING CLERK - 05/30/2024 10:22 AM CDT Patient discharged home with spouse, no discharge needs noted 05/30/24 1206 Discharge Planning Living Arrangements Spouse/significant other Support Systems Spouse/significant other;Family members Type of Residence Private residence Assistance Needed No Patient expects to be discharged to: Home or Self care no new needs IV Infusion at discharge No DME Needed at Discharge No * Hilaria Chapa RN - 05/30/2024 9:57 AM CDT Problem: Discharge Planning Goal: Knowledge of discharge instructions 05/30/2024956 by Hilaria Chapa RN Outcome: Progressing 05/30/2024956 by Hilaria Chapa RN Outcome: Not Progressing Problem: Pain control/comfort Goal: Promote pain control/comfort 05/30/2024956 by Hilaria Chapa RN Outcome: Progressing 05/30/2024956 by Hilaria Chapa RN Outcome: Not Progressing Problem: Skin integrity, Impaired-wound Goal: Absence of new skin breakdown 05/30/2024956 by Hilaria Chapa RN Outcome: Progressing 05/30/2024956 by Hilaria Chapa RN Outcome: Not Progressing Goal: Evidence of wound healing 05/30/2024956 by Hilaria Chapa RN Outcome: Progressing 05/30/2024956 by Hilaria Chapa RN Outcome: Not Progressing Problem: Skin integrity, Impaired-pressure injury/ulcer Goal: Absence of new skin breakdown 05/30/2024956 by Hilaria Chapa RN Outcome: Progressing 05/30/2024956 by Hilaria Chapa RN Outcome: Not Progressing Goal: Evidence of pressure injury/ulcer healing 05/30/2024 09 by Hilaria Chapa RN Outcome: Progressing 05/30/2024956 by Hilaria Chapa RN Outcome: Not Progressing * Samson Barr MD - 05/30/2024 7:38 AM CDT Images from the original note were not included. General Surgery Progress Note-[facility] Hans Pascual is an 59-year-old female. 7 Days Post-Op Procedure(s) (LRB): LAPAROTOMY EXPLORATORY, LYSIS OF ADHESIONS (N/A) SUBJECTIVE: Feels good anxious to go home OBJECTIVE: Blood pressure 123/74, pulse 74, temperature 97.7 ??F (36.5 ??C), temperature source Axillary, resp. rate 18, height 1.727 m (5' 7.99 ), weight 82.6 kg (182 lb 1.6 oz), SpO2 100%. Exam: Abdomen soft, incision and dressing dry Labs noted Labs: Recent Labs Lab 05/26/24 0554 05/27/24 0525 05/28/24 0514 05/29/24 0515 05/30/24 0646 WBC 6.56 4.54 4.49* 4.41* 4.04* HGB 11.5* 10.9* 11.4* 10.3* 11.2* MCV 100.6* 105.7* 97.1 96.5 99.1* PLT 195 192 217 208 255 Recent Labs Lab 05/28/24 0514 05/29/24 0515 05/30/24 0646 NA 140 142 142 K 3.1* 3.2* 3.5 CL 109* 113* 113* CO2 26.1 22.1 22.1 BUN 5* 4* 3* CR 0.61 0.49* 0.57 No results for input(s): AST , ALT , TBIL , ALB in the last 168 hours. Invalid input(s): ALKPHOS Rads: No new studies IMPRESSION: 7 Days Post-Op Status post exploratory laparotomy with lysis of adhesions, doing well PLAN: 1. Discharge fine from a surgical standpoint 2. Follow-up with Dr. Sauer with [facility] in 1 to 2 weeks for staple removal-please call for an appointment 3. Discussed with patient, questions answered SAMSON BARR MD 05/30/2024 * Dunia Souza RN - 05/29/2024 10:38 PM CDT Problem: Discharge Planning Goal: Knowledge of discharge instructions Outcome: Progressing Problem: Pain control/comfort Goal: Promote pain control/comfort Outcome: Progressing Problem: Skin integrity, Impaired-wound Goal: Absence of new skin breakdown Outcome: Progressing Goal: Evidence of wound healing Outcome: Progressing Problem: Skin integrity, Impaired-pressure injury/ulcer Goal: Absence of new skin breakdown Outcome: Progressing Goal: Evidence of pressure injury/ulcer healing Outcome: Progressing Problem: Skin integrity, at risk Goal: Absence of new skin breakdown Outcome: Progressing Problem: Moisture associated skin impairment Goal: Reduce moisture exposure Outcome: Progressing Goal: Evidence of wound healing Outcome: Progressing Goal: Evidence of pressure injury/ulcer healing Outcome: Progressing Goal: Absence of new skin breakdown Outcome: Progressing Problem: Reduced risk for falls/injury Goal: Reduced Risk for Falls/Injury Outcome: Progressing Goal: Reduced Risk of Confusion (Acute vs Chronic) Outcome: Progressing Goal: Reduced Risk of Symptomatic Depression Outcome: Progressing Goal: Reduced Risk of Altered Elimination Outcome: Progressing Goal: Reduced Risk of Dizziness/Vertigo/Balance Outcome: Progressing Goal: Reduced Risk of Polypharmacy Outcome: Progressing * Samson Barr MD - 05/29/2024 10:42 AM CDT Images from the original note were not included. General Surgery Progress Note-[facility] Hans Kongkstein is an 59-year-old female. 6 Days Post-Op Procedure(s) (LRB): LAPAROTOMY EXPLORATORY, LYSIS OF ADHESIONS (N/A) SUBJECTIVE: Feeling better, still with loose stools but less crampy pains OBJECTIVE: Blood pressure 121/69, pulse 77, temperature 98.8 ??F (37.1 ??C), temperature source Oral, resp. rate 18, height 1.727 m (5' 7.99 ), weight 82.6 kg (182 lb 1.6 oz), SpO2 98%. Exam: Incision clean, dressing dry, nondistended Labs noted Labs: Recent Labs Lab 05/25/24 0610 05/26/24 0554 05/27/24 0525 05/28/24 0514 05/29/24 0515 WBC 8.51 6.56 4.54 4.49* 4.41* HGB 11.5* 11.5* 10.9* 11.4* 10.3* MCV 102.6* 100.6* 105.7* 97.1 96.5 PLT 186 195 192 217 208 Recent Labs Lab 05/27/24 0525 05/28/24 0514 05/29/24 0515 NA 140 140 142 K 3.6 3.1* 3.2* CL 115* 109* 113* CO2 19.5* 26.1 22.1 BUN 4* 5* 4* CR 0.52* 0.61 0.49* Recent Labs Lab 05/23/24 0110 AST 21 ALT 24 TBIL 0.8 ALB 3.4 Rads: No new studies IMPRESSION: 6 Days Post-Op Status post exploratory laparotomy with lysis of omental adhesions PLAN: 1. Encouraged ambulation 2. Encouraged p.o. intake 3. Likely home in a day or 2 if doing well 4. Questions answered SAMSON BARR MD 05/29/2024 * Lakesha Beebe RN - 05/29/2024 10:33 AM CDT Problem: Discharge Planning Goal: Knowledge of discharge instructions Outcome: Not Progressing Problem: Pain control/comfort Goal: Promote pain control/comfort Outcome: Not Progressing Problem: Skin integrity, Impaired-wound Goal: Absence of new skin breakdown Outcome: Not Progressing Goal: Evidence of wound healing Outcome: Not Progressing Problem: Skin integrity, Impaired-pressure injury/ulcer Goal: Absence of new skin breakdown Outcome: Not Progressing Goal: Evidence of pressure injury/ulcer healing Outcome: Not Progressing Problem: Skin integrity, at risk Goal: Absence of new skin breakdown Outcome: Not Progressing Problem: Moisture associated skin impairment Goal: Reduce moisture exposure Outcome: Not Progressing Goal: Evidence of wound healing Outcome: Not Progressing Goal: Evidence of pressure injury/ulcer healing Outcome: Not Progressing Goal: Absence of new skin breakdown Outcome: Not Progressing * Sonya Cantrell DO - 05/29/2024 7:16 AM CDT Hospitalist Daily Progress Note Subjective Patient seen and examined. Feeling ok today, was able to eat more breakfast. Has intermittent abdominal pains. She is going to try to eat more today including some watermelon from home her isbringing her. VSS. Has developed a cold sore on her lip that she sometimes gets and takes valtrex for. Objective Filed Vitals: 05/28/24 1501 05/28/24 1914 05/29/24 0012 05/29/24 0446 BP: 114/68 108/50 112/60 124/62 Pulse: 83 76 81 81 Resp: 16 16 16 Temp: 99.1 ??F (37.3 ??C) 99.7 ??F (37.6 ??C) 99.3 ??F (37.4 ??C) 98.8 ??F (37.1 ??C) TempSrc: Oral Oral Oral Oral SpO2: 98% 98% 98% 96% Weight: Height: Intake/Output 24H Total: Intake/Output Summary (Last 24 hours) at 05/29/2024 0716 Last data filed at 05/28/2024 1842 Gross per 24 hour Intake 1040 ml Output -- Net 1040 ml Physical Exam: General: No acute distress, breathing comfortably on room air. Eyes: Extraocular movements intact ENT: Neck supple, Septum is midline. Lungs: Clear to auscultation bilaterally Cardiovascular: Regular rate rhythm Extremities: no lower extremity edema. Neurological: Alert, awake, oriented Medications heparin (porcine) 5,000 Units Subcutaneous 2 times per day pantoprazole EC 40 mg Oral Daily potassium chloride CR 40 mEq Oral Once sodium chloride 100 mL/hr at 05/28/242028 acetaminophen, albuterol sulfate HFA, HYDROcodone-acetaminophen, mworzqpfo-rygelohf-tnyyagdnsot, morphine, morphine, ondansetron, ondansetron, phenol Labs, Imaging, Other Studies Recent Labs Lab 05/23/24 0110 05/24/24 0626 05/25/24 0610 05/26/24 0554 05/27/24 0525 05/28/24 0514 05/29/24 0515 WBC 8.97 10.43 8.51 6.56 4.54 4.49* 4.41* RBC 4.11* 3.74* 3.45* 3.45* 3.32* 3.50* 3.17* HGB 13.8 12.1 11.5* 11.5* 10.9* 11.4* 10.3* HCT 39.8 37.5* 35.4* 34.7* 35.1* 34.0* 30.6* MCV 96.8* 100.3* 102.6* 100.6* 105.7* 97.1 96.5 MCH 33.6* 32.4* 33.3* 33.3* 32.8* 32.6* 32.5* MCHC 34.7* 32.3 32.5 33.1 31.1* 33.5 33.7 PLT 245 217 186 195 192 217 208 RDW 14.7 15.3* 15.0* 14.3 14.3 14.3 14.2 MPV 10.4 10.4 10.4 10.6 10.2 10.5 10.3 PERNEU 64.1 73.1 69.7 61.4 53.1 60.6 59.2 PERLYM 24.4 15.7 17.3 25.5 32.2 26.3 24.7 PERMON 10.4 10.5 10.9 9.6 11.2 10.7 13.4 NEUC 5.75 7.62 5.93 4.03 2.41 2.72 2.61 LYMC 2.19 1.64 1.47 1.67 1.46 1.18 1.09 MONOC -- 1.10* 0.93* 0.63 0.51 0.48 0.59 EOSC -- 0.00* 0.13 0.18 0.13 0.09 0.10 BASOC -- 0.02 0.02 0.04 0.02 0.01 0.01 DTYPE -- AUTOMATED DIFFERENTIAL AUTOMATED DIFFERENTIAL AUTOMATED DIFFERENTIAL AUTOMATED DIFFERENTIAL AUTOMATED DIFFERENTIAL AUTOMATED DIFFERENTIAL Recent Labs Lab 05/22/24 0855 05/23/24 0110 05/24/24 0626 05/25/24 0610 05/26/24 0554 05/27/24 0525 05/28/24 0514 05/29/24 0515 NA 139 140 143 140 138 140 140 142 K 4.1 3.6 3.7 3.3* 3.3* 3.6 3.1* 3.2* CL 101 103 114* 110* 110* 115* 109* 113* CO2 27.0 25.2 20.8* 25.5 21.2 19.5* 26.1 22.1 AGAP 11.0 11.8 8.2 4.5* 6.8 5.5 4.9* 6.9 BUN 18 19* 26* 14 6* 4* 5* 4* CR 0.94 1.07* 0.62 0.59 0.62 0.52* 0.61 0.49* BUNCREATININ 19.1 17.8 41.7* 23.6 9.7 7.6 8.2 8.2 GLU 137* 112* 96 128* 91 86 85 80 CA 10.4* 10.0 9.0 8.9 9.3 8.9 9.1 8.4* TP 7.8 7.4 -- -- -- -- -- -- ALB 3.7 3.4 -- -- -- -- -- -- TBIL 0.6 0.8 -- -- -- -- -- -- ALKP 117 103 -- -- -- -- -- -- AST 22 21 -- -- -- -- -- -- ALT 29 24 -- -- -- -- -- -- No results for input(s): CHOL , TRI , HDL , LDL , HGBA1C , TSH in the last 168 hours. No results for input(s): APTT , INR , PTT in the last 168 hours. No results for input(s): TROP , TROPIWB , CKMB , CPK in the last 168 hours. No results for input(s): LACTICACID , PROCT in the last 168 hours. No results for input(s): PH , PCO2 , PO2 , [id number] , BICARBWB , BASEDEFICIT , BASEEXCESS in the last 168 hours. Results for orders placed or performed during the hospital encounter of 05/21/24 URINALYSIS, AUTO, COMPLETE Result Value Ref Range COLOR (U) YELLOW TRANSPARENCY CLEAR SPECIFIC GRAVITY (U) 1.010 1.000 - 1.030 U PH 7.5 5.0 - 9.0 LEUKOCYTES (U) NEGATIVE NEGATIVE NITRITES NEGATIVE NEGATIVE PROTEIN RANDOM (U) NEGATIVE NEGATIVE GLUCOSE (U) NEGATIVE NEGATIVE KETONES (U) NEGATIVE NEGATIVE BILIRUBIN (U) NEGATIVE NEGATIVE BLOOD (U) NEGATIVE NEGATIVE WBC/HPF NONE SEEN 0 - 5 /HPF RBC/HPF NONE SEEN 0 - 5 /HPF EPI/HPF RARE /HPF Imaging XR SMALL BOWEL Result Date: 05/23/2024 EXAMINATION: SMALL BOWEL FOLLOW-THROUGH EXAM DATE: 05/23/2024 10:08 AM REASON FOR EXAM: Small bowel obstruction COMPARISON: CT 05/23/2024 2:40 AM TECHNIQUE: Utilization Review Specialist image of the abdomen was obtained, oral contrast was administered by NG tube. Images of the abdomen were obtained 20, 4 0, 60, 90, 120, 180 minutes after administration. FINDINGS: Utilization Review Specialist image demonstrates moderate smallbowel dilatation. NG tube is well-positioned within the stomach. At 20 and 40 and 60 minutes, contrast migrates within the small bowel and reaches the midportion small bowel, distal small bowel loopsremain unopacified. Consistent with small bowel obstruction. By 3 hours, contrast did not reach thelarge bowel, suggesting moderate to high-grade obstruction. Large bowel loops are mostly collapsed. IMPRESSION: 1. Diffuse small bowel dilatation, contrast does not reach the large bowel by 3 hours, suggesting moderate to high-grade obstruction. Ordered By: LIAN SAUER Interpreted By: Archie Clayton, 05/23/2024 2:02 PM XR CHEST PORTABLE Result Date: 05/23/2024 EXAMINATION: XR Portable CXR, 1 View INDICATION: Confirmation of Gastric Tube Placement. COMPARISON: CTA chest, abdomen and pelvis with contrast 05/21/2024. Portable AP chest x-ray 05/24/2018. FINDINGS:There is an enteric tube with sidehole in the fundus of the stomach and tip in the region of the distal fundus or proximal body of stomach. 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 Mild calcifications in the aortic arch. The cardiomediastinal silhouette is otherwise within normal limits. Pulmonary vascularity is normal. Small right pleural effusion is better seen on the comparison CT abdomen and pelvis exam of same date. There is mild prominence of interstitial markings in the lowerlobes, right more than left. No significant left pleural effusion. Upper lobes remain clear. No acute osseous abnormality. IMPRESSION: 1. Placement of enteric tube with tip in the distal fundus or proximal body of stomach.2. Small right pleural effusion, better seen on comparison CT abdomen and pelvis exam of same date. 3. Mild prominence of interstitial markings in the lower lobes, right more than left, mild intersti tial pulmonary edema versus atypical pneumonia. Referred By: Interpreted By: Doris Leon MD, 05/23/2024 4:[address] ABD+PEL W IV CON ONLY Result Date: 05/23/2024 CT of the abdomen and pelvis with contrast INDICATION: Diffuse abdominal pain. Comparison is 05/21/2024. TECHNIQUE: Axial, coronal and sagittal images from the lung bases through the pubic symphysis with intravenous contrast. Radiation dose reduction technique(s) were used. FINDINGS: There is a smallright pleural effusion, new from the previous study. No basal infiltrates. Left lower lobe granuloma noted. Cholecystectomy is noted. The liver, spleen, pancreas, adrenals and kidneys appear normal. There is a very small amount of ascites. No upper abdominal or periaortic adenopathy. Scans of the pelvis show no mass, lymphadenopathy or free fluid. No bladder wall thickening or bladder calculus. The stomach is unremarkable. There are numerous distended fluid-filled small bowel loops up to 3.3 cmin diameter. The distal ileum is collapsed. Findings indicate a mid to distal small bowel obstruction, likely due to an adhesion. There is mild mesenteric edema. The appendix is normal. The colon is u nremarkable. No free peritoneal air. No hernias are identified. Degenerative changes noted at the lumbosacral disc. No acute bony abnormality. IMPRESSION: Mid to distal small bowel obstruction, likely due to an adhesion. Mild associated ascites. Small right pleural effusion. Referred By: Interpreted By: Toney Blackmon MD, 05/23/2024 2:54 AM ECG 12 lead Result Date: 05/22/2024 [facility] Test Date: 2024-05-22 Pat Name: [facility] Department: 85 Room: EXAM 505 Gender: Female Psychology Tech: : [id number] Requested By: NIMISHA RUANO Order Number: [id number] Reading MD: Guanako Hancock Measurements Intervals [place] Rate: 73 P: 82 [place]: 168 QRS: 58 QRSD: 89 T: 48 QT: 381 QTc: 422 Interpretive Statements SINUS RHYTHM Compared to ECG 09/01/2023 11:48:43 No significant changes CTA CHEST+ABD+PEL Result Date: 05/21/2024 Examination: CTA CHEST+ABD+PEL Exam time: 05/21/2024 4:48 PM INDICATION: Severe mid to left abdominalpain for one day. TECHNIQUE: After administration of 75 mL Isovue-370 IV contrast via the right arm, arterial phase multidetector CT images were obtained through the chest, abdomen, and pelvis. Multiplanar and MIP images were created and reviewed. In addition, 3D image processing was performed on a separate workstation by a technologist, with images sent to PACS for review. A dose lowering technique was used for this procedure, which may include, but is not limited to, dose reduction techniques, automated exposure control, the use of a iterative reconstruction, and ALARA (as low as reasonablyachievable)/image gently techniques. COMPARISON: None FINDINGS: CHEST: There is no evidence for thoracic aortic aneurysm or dissection. The origins of the great vessels are patent. There is no pulmonary embolism noted. There is evidence for previous granulomatous disease. Mild linear scarring or subsegmental atelectasis is noted in the left lower lobe. No airspace consolidation, pleural effusion,or pneumothorax. The central airways are patent. There is no lymphadenopathy. No pericardial effusion. No acute osseous abnormality. Abdomen/pelvis: There is no evidence for abdominal aortic aneurysmor dissection. The common and external iliac arteries are normal in caliber. The mesenteric vesselsare patent. There are patent single renal arteries. The liver and spleen are normal in size and contour. Cholecystectomy. The pancreas is unremarkable. No adrenal mass. No hydronephrosis. There is symmetric renal enhancement. There is no ureteral calculus. There is no calculus in the urinary bladder. There is no evidence for appendicitis. There is moderate mesenteric edema/stranding in the left mid and lower abdomen. There is no bowel obstruction or free intraperitoneal air. Evaluation for bowel wall thickening is essentially precluded due to the phase of enhancement. There is a 1.6 cm oval fat density lesion in a mid to distal jejunal bowel loop, evidence for a lipoma. There is no lymphadenopathy noted. There is no drainable fluid collection or abscess. No acute osseous abnormality. IMPRESSION: 1. There is moderate mesenteric edema/stranding in the left mid and lower abdomen, nonspecific but presumably related to enteritis. There is no evidence for a bowel obstruction. There is no drainable fluid collection or abscess noted. 2. There are no acute findings noted in the chest. Referred By: Interpreted By: Garcia Cosby MD, 05/21/2024 5:17 PM EKG: No results found for this visit on 05/23/24. Assessment & Plan SBO Ms. Pascual transferred from [facility] after 3 consecutive ER visits for worsening abd pain. CT A/P (05/23): mid to distal small bowel obstruction NG placed in ER at [facility] NPO/IVF Pain Control - monitor for toxicity [...] diffuse ileus Per surgery recommends regular diet Continue to monitor, encourage PO intake Hypokalemia Replete and monitor GERD/IBS PPI Cold sore Known hx, takes valtrex as needed Valtrex 2gm BID x1 day RA Maintained on Methotrexate Follows with [facility] Depression/Anxiety Restart home meds as able SDOH Reviewed, none as of 05/23 DVT Prophylaxis: Heparin SQ Code status: Full Code SONYA CANTRELL DO 05/29/2024 7:16 AM * Mary Moreno RN - 05/28/2024 1:24 PM CDT Problem: Discharge Planning Goal: Knowledge of discharge instructions Outcome: Progressing Problem: Pain control/comfort Goal: Promote pain control/comfort Outcome: Progressing Problem: Skin integrity, Impaired-wound Goal: Absence of new skin breakdown Outcome: Progressing Goal: Evidence of wound healing Outcome: Progressing Problem: Skin integrity, Impaired-pressure injury/ulcer Goal: Absence of new skin breakdown Outcome: Progressing Goal: Evidence of pressure injury/ulcer healing Outcome: Progressing Problem: Skin integrity, at risk Goal: Absence of new skin breakdown Outcome: Progressing Problem: Moisture associated skin impairment Goal: Reduce moisture exposure Outcome: Progressing Goal: Evidence of wound healing Outcome: Progressing Goal: Evidence of pressure injury/ulcer healing Outcome: Progressing Goal: Absence of new skin breakdown Outcome: Progressing Problem: Reduced risk for falls/injury Goal: Reduced Risk for Falls/Injury Outcome: Progressing Goal: Reduced Risk of Confusion (Acute vs Chronic) Outcome: Progressing Goal: Reduced Risk of Symptomatic Depression Outcome: Progressing Goal: Reduced Risk of Altered Elimination Outcome: Progressing Goal: Reduced Risk of Dizziness/Vertigo/Balance Outcome: Progressing Goal: Reduced Risk of Polypharmacy Outcome: Progressing * Sonya Cantrell DO - 05/28/2024 11:47 AM CDT Hospitalist Daily Progress Note Subjective Patient seen and examined this morning. She was having loose stools and left upper abdominal pain this morning that has since resolved. IVFs and CT ordered per surgery. No nausea or vomiting but she does not have much of an appetite. Objective Filed Vitals: 05/28/24 0002 05/28/24 0455 05/28/24 0741 05/28/24 1112 BP: 96/52 122/69 (!) 142/64 133/67 Pulse: 77 80 71 67 Resp: 16 16 Temp: 98.1 ??F (36.7 ??C) 98.1 ??F (36.7 ??C) 99.1 ??F (37.3 ??C) 98.8 ??F (37.1 ??C) TempSrc: Oral Oral Oral Oral SpO2: 99% 99% 98% 97% Weight: Height: Intake/Output 24H Total: Intake/Output Summary (Last 24 hours) at 05/28/2024 1147 Last data filed at 05/28/2024 0838 Gross per 24 hour Intake 840 ml Output -- Net 840 ml Physical Exam: General: No acute distress, breathing comfortably on room air. Eyes: Extraocular movements intact ENT: Neck supple, Septum is midline. Lungs: Clear to auscultation bilaterally Cardiovascular: Regular rate rhythm Abdomen: Abdominal binder in place Extremities: no lower extremity edema. Neurological: Alert, awake, oriented Skin: Skin color, texture, turgor normal. No rashes or lesions Medications heparin (porcine) 5,000 Units Subcutaneous 2 times per day pantoprazole EC 40 mg Oral Daily sodium chloride 100 mL/hr at 05/28/24 1035 acetaminophen, albuterol sulfate HFA, HYDROcodone-acetaminophen, vdopgqwne-wtyatnef-feftiylsriv, morphine, morphine, ondansetron, ondansetron, phenol Labs, Imaging, Other Studies Recent Labs Lab 05/22/24 0855 05/23/24 0110 05/24/24 0626 05/25/24 0610 05/26/24 0554 05/27/24 0525 05/28/24 0514 WBC 10.00 8.97 10.43 8.51 6.56 4.54 4.49* RBC 4.11* 4.11* 3.74* 3.45* 3.45* 3.32* 3.50* HGB 13.6 13.8 12.1 11.5* 11.5* 10.9* 11.4* HCT 40.3 39.8 37.5* 35.4* 34.7* 35.1* 34.0* MCV 98.1* 96.8* 100.3* 102.6* 100.6* 105.7* 97.1 MCH 33.1* 33.6* 32.4* 33.3* 33.3* 32.8* 32.6* MCHC 33.7 34.7* 32.3 32.5 33.1 31.1* 33.5 PLT 221 245 217 186 195 192 217 RDW 14.6 14.7 15.3* 15.0* 14.3 14.3 14.3 MPV 10.2 10.4 10.4 10.4 10.6 10.2 10.5 PERNEU 84.2* 64.1 73.1 69.7 61.4 53.1 60.6 PERLYM 9.6* 24.4 15.7 17.3 25.5 32.2 26.3 PERMON 5.4* 10.4 10.5 10.9 9.6 11.2 10.7 NEUC 8.42* 5.75 7.62 5.93 4.03 2.41 2.72 LYMC 0.96 2.19 1.64 1.47 1.67 1.46 1.18 MONOC -- -- 1.10* 0.93* 0.63 0.51 0.48 EOSC -- -- 0.00* 0.13 0.18 0.13 0.09 BASOC -- -- 0.02 0.02 0.04 0.02 0.01 DTYPE -- -- AUTOMATED DIFFERENTIAL AUTOMATED DIFFERENTIAL AUTOMATED DIFFERENTIAL AUTOMATED DIFFERENTIAL AUTOMATED DIFFERENTIAL Recent Labs Lab 05/21/24 1529 05/22/24 0855 05/23/24 0110 05/24/24 0626 05/25/24 0610 05/26/24 0554 05/27/24 0525 05/28/24 0514 NA 141 139 140 143 140 138 140 140 K 3.2* 4.1 3.6 3.7 3.3* 3.3* 3.6 3.1* CL 103 101 103 114* 110* 110* 115* 109* CO2 23.9 27.0 25.2 20.8* 25.5 21.2 19.5* 26.1 AGAP 14.1 11.0 11.8 8.2 4.5* 6.8 5.5 4.9* BUN 16 18 19* 26* 14 6* 4* 5* CR 0.92 0.94 1.07* 0.62 0.59 0.62 0.52* 0.61 BUNCREATININ 17.4 19.1 17.8 41.7* 23.6 9.7 7.6 8.2 GLU 92 137* 112* 96 128* 91 86 85 CA 10.0 10.4* 10.0 9.0 8.9 9.3 8.9 9.1 TP 7.6 7.8 7.4 -- -- -- -- -- ALB 3.6 3.7 3.4 -- -- -- -- -- TBIL 0.5 0.6 0.8 -- -- -- -- -- ALKP 117 117 103 -- -- -- -- -- AST 20 22 21 -- -- -- -- -- ALT 29 29 24 -- -- -- -- -- No results for input(s): CHOL , TRI , HDL , LDL , HGBA1C , TSH in the last 168 hours. No results for input(s): APTT , INR , PTT in the last 168 hours. No results for input(s): TROP , TROPIWB , CKMB , CPK in the last 168 hours. No results for input(s): LACTICACID , PROCT in the last 168 hours. No results for input(s): PH , PCO2 , PO2 , [id number] , BICARBWB , BASEDEFICIT , BASEEXCESS in the last 168 hours. Results for orders placed or performed during the hospital encounter of 05/21/24 URINALYSIS, AUTO, COMPLETE Result Value Ref Range COLOR (U) YELLOW TRANSPARENCY CLEAR SPECIFIC GRAVITY (U) 1.010 1.000 - 1.030 U PH 7.5 5.0 - 9.0 LEUKOCYTES (U) NEGATIVE NEGATIVE NITRITES NEGATIVE NEGATIVE PROTEIN RANDOM (U) NEGATIVE NEGATIVE GLUCOSE (U) NEGATIVE NEGATIVE KETONES (U) NEGATIVE NEGATIVE BILIRUBIN (U) NEGATIVE NEGATIVE BLOOD (U) NEGATIVE NEGATIVE WBC/HPF NONE SEEN 0 - 5 /HPF RBC/HPF NONE SEEN 0 - 5 /HPF EPI/HPF RARE /HPF Imaging XR SMALL BOWEL Result Date: 05/23/2024 EXAMINATION: SMALL BOWEL FOLLOW-THROUGH EXAM DATE: 05/23/2024 10:08 AM REASON FOR EXAM: Small bowel obstruction COMPARISON: CT 05/23/2024 2:40 AM TECHNIQUE: Utilization Review Specialist image of the abdomen was obtained, oral contrast was administered by NG tube. Images of the abdomen were obtained 20, 4 0, 60, 90, 120, 180 minutes after administration. FINDINGS: Utilization Review Specialist image demonstrates moderate smallbowel dilatation. NG tube is well-positioned within the stomach. At 20 and 40 and 60 minutes, contrast migrates within the small bowel and reaches the midportion small bowel, distal small bowel loopsremain unopacified. Consistent with small bowel obstruction. By 3 hours, contrast did not reach thelarge bowel, suggesting moderate to high-grade obstruction. Large bowel loops are mostly collapsed. IMPRESSION: 1. Diffuse small bowel dilatation, contrast does not reach the large bowel by 3 hours, suggesting moderate to high-grade obstruction. Ordered By: LIAN SAUER Interpreted By: Archie Clayton, 05/23/2024 2:02 PM XR CHEST PORTABLE Result Date: 05/23/2024 EXAMINATION: XR Portable CXR, 1 View INDICATION: Confirmation of Gastric Tube Placement. COMPARISON: CTA chest, abdomen and pelvis with contrast 05/21/2024. Portable AP chest x-ray 05/24/2018. FINDINGS: There is an enteric tube with sidehole in the fundus of the stomach and tip in the region of the distal fundus or proximal body of stomach. 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 Mild calcifications in the aortic arch. The cardiomediastinal silhouette is otherwise within normal limits. Pulmonary vascularity is normal. Small right pleural effusion is better seen on the comparison CTabdomen and pelvis exam of same date. There is mild prominence of interstitial markings in the lower lobes, right more than left. No significant left pleural effusion. Upper lobes remain clear. No acute osseous abnormality. IMPRESSION: 1. Placement of enteric tube with tip in the distal fundus or proximal body of stomach.2. Small right pleural effusion, better seen on comparison CT abdomen and pelvis exam of same date.3. Mild prominence of interstitial markings in the lower lobes, right more than left, mild interstit ial pulmonary edema versus atypical pneumonia. Referred By: Interpreted By: Doris Leon MD, 05/23/2024 4:[address] ABD+PEL W IV CON ONLY Result Date: 05/23/2024 CT of the abdomen and pelvis with contrast INDICATION: Diffuse abdominal pain. Comparison is 05/21/2024. TECHNIQUE: Axial, coronal and sagittal images from the lung bases through the pubic symphysis with intravenous contrast. Radiation dose reduction technique(s) were used. FINDINGS: There is a smallright pleural effusion, new from the previous study. No basal infiltrates. Left lower lobe granuloma noted. Cholecystectomy is noted. The liver, spleen, pancreas, adrenals and kidneys appear normal. There is a very small amount of ascites. No upper abdominal or periaortic adenopathy. Scans of the pelvis show no mass, lymphadenopathy or free fluid. No bladder wall thickening or bladder calculus. The stomach is unremarkable. There are numerous distended fluid-filled small bowel loops up to 3.3 cmin diameter. The distal ileum is collapsed. Findings indicate a mid to distal small bowel obstruction, likely due to an adhesion. There is mild mesenteric edema. The appendix is normal. The colon is u nremarkable. No free peritoneal air. No hernias are identified. Degenerative changes noted at the lumbosacral disc. No acute bony abnormality. IMPRESSION: Mid to distal small bowel obstruction, likely due to an adhesion. Mild associated ascites. Small right pleural effusion. Referred By: Interpreted By: Toney Blackmon MD, 05/23/2024 2:54 AM ECG 12 lead Result Date: 05/22/2024 [facility] Test Date: 2024-05-22 Pat Name: [facility] Department: 85 Room: EXAM [facility] Gender: Female Psychology Tech: : 1965 Requested By: NIMISHA RUANO Order Number: [id number] Reading MD: Guanako Hancock Measurements Intervals [place] Rate: 73 P: 82 [place]: 168 QRS: 58 QRSD: 89 T: 48 QT: 381 QTc: 422 Interpretive Statements SINUS RHYTHM Compared to ECG 09/01/2023 11:48:43 No significant changes CTA CHEST+ABD+PEL Result Date: 05/21/2024 Examination: CTA CHEST+ABD+PEL Exam time: 05/21/2024 4:48 PM INDICATION: Severe mid to left abdominalpain for one day. TECHNIQUE: After administration of 75 mL Isovue-370 IV contrast via the right arm, arterial phase multidetector CT images were obtained through the chest, abdomen, and pelvis. Multiplanar and MIP images were created and reviewed. In addition, 3D image processing was performed on a separate workstation by a technologist, with images sent to PACS for review. A dose lowering technique was used for this procedure, which may include, but is not limited to, dose reduction techniques, automated exposure control, the use of a iterative reconstruction, and ALARA (as low as reasonablyachievable)/image gently techniques. COMPARISON: None FINDINGS: CHEST: There is no evidence for thoracic aortic aneurysm or dissection. The origins of the great vessels are patent. There is no pulmonary embolism noted. There is evidence for previous granulomatous disease. Mild linear scarring or subsegmental atelectasis is noted in the left lower lobe. No airspace consolidation, pleural effusion, or pneumothorax. The central airways are patent. There is no lymphadenopathy. No pericardial effusion. No acute osseous abnormality. Abdomen/pelvis: There is no evidence for abdominal aortic aneurysm or dissection. The common and external iliac arteries are normal in caliber. The mesenteric vessels are patent. There are patent single renal arteries. The liver and spleen are normal in size and contour. Cholecystectomy. The pancreas is unremarkable. No adrenal mass. No hydronephrosis. There is symmetric renal enhancement. There is no ureteral calculus. There is no calculus in the urinary bladder. There is no evidence for appendicitis. There is moderate mesenteric edema/stranding in the left mid and lower abdomen. There is no bowel obstruction or free intraperitoneal air. Evaluation for bowel wall thickening is essentially precluded due to the phase of enhancement. There is a 1.6 cm oval fat density lesion in a mid to distal jejunal bowel loop, evidence for a lipoma. There is no lymphadenopathy noted. There is no drainable fluid collection or abscess. No acute osseous abnormality. IMPRESSION: 1. There is moderate mesenteric edema/stranding in the left mid and lower abdomen, nonspecific but presumably related to enteritis. There is no evidence for a bowel obstruction. There is no drainable fluid collection or abscess noted. 2. There are no acute findings noted in the chest. Referred By: Interpreted By: Garcia Cosby MD, 05/21/2024 5:17 PM EKG: No results found for this visit on 05/23/24. Assessment & Plan SBO Ms. Pascual transferred from [facility] after 3 consecutive ER visits for worsening abd pain. CT A/P (05/23): mid to distal small bowel obstruction NG placed in ER at [facility] NPO/IVF Pain Control - monitor for toxicity Anti-emetics Surgery Consulted 05/23 SB X-ray: Diffuse small bowel dilatation, contrast does not reach the large bowel by 3 hours, suggesting moderate to high-grade obstruction S/p exploratory laparotomy and lysis of adhesions 05/23/24 Post op per surgery Up in chair, ambulate NG tube removed 05/25 Diet advanced to general Increased pain/loose stools this morning CT A/P: Mild diffuse ileus Per surgery recommends regular diet and continuing IVFs until taking more PO Continue to monitor Hypokalemia Replete and monitor GERD/IBS PPI RA Maintained on Methotrexate Follows with [facility] Depression/Anxiety Restart home meds as able SDOH Reviewed, none as of 05/23 DVT Prophylaxis: Heparin SQ Code status: Full Code SONYA CANTRELL DO 05/28/2024 11:47 AM * Lian Sauer MD - 05/28/2024 10:44 AM CDT Hans Pascual is an 59-year-old female. Date of Service: 05/28/2024 SUBJECTIVE: Notified by RN this morning that patient had loose liquid diarrhea and was not feeling well. She admitted to the abdominal pain. Denies nausea or emesis. Orders for fluids and to obtain a stat CT abdomen pelvis with contrast was made. At time of my evaluation, patient is up in chair. She is in no distress. She appears well. She doesnot have a toxic appearance. She states that the upper abdominal pain has resolved. She does have appropriate incisional pain which is improved overall from surgery. OBJECTIVE: Temp (24hrs), Av.4 ??F (36.9 ??C), Min:98.1 ??F (36.7 ??C), Max:99.1 ??F (37.3 ??C) Filed Vitals: 05/27/24 1914 05/28/24 0002 05/28/24 0455 05/28/24 0741 BP: 100/49 96/52 122/69 (!) 142/64 Pulse: 76 77 80 71 Resp: 16 16 16 Temp: 98.2 ??F (36.8 ??C) 98.1 ??F (36.7 ??C) 98.1 ??F (36.7 ??C) 99.1 ??F (37.3 ??C) TempSrc: Oral Oral Oral Oral SpO2: 99% 99% 99% 98% Weight: Height: Exam: Incision intact with augustine, appropriate tenderness at incision site only I have personally reviewed the labs and found them to be significant for: Labs: Lab Results Component Value Date NA 140 05/28/2024 K 3.1 (L) 05/28/2024 CL 109 (H) 05/28/2024 CO2 26.1 05/28/2024 AGAP 4.9 (L) 05/28/2024 BUN 5 (L) 05/28/2024 CR 0.61 05/28/2024 CR 0.52 (L) 05/27/2024 CR 0.62 05/26/2024 GLU 85 05/28/2024 CA 9.1 05/28/2024 Lab Results Component Value Date WBC 4.49 (L) 05/28/2024 WBC 4.54 05/27/2024 WBC 6.56 05/26/2024 HGB 11.4 (L) 05/28/2024 HGB 10.9 (L) 05/27/2024 HGB 11.5 (L) 05/26/2024 PLT 217 05/28/2024 PLT 192 05/27/2024 PLT 195 05/26/2024 Lab Results Component Value Date ALT 24 05/23/2024 ALT 29 05/22/2024 ALT 29 05/21/2024 TBIL 0.8 05/23/2024 TBIL 0.6 05/22/2024 TBIL 0.5 05/21/2024 ALKP 103 05/23/2024 ALKP 117 05/22/2024 ALKP 117 05/21/2024 IMPRESSION: CT ab pelvis with findings of possible mild ileus I reviewed these findings of distention is residual from her obstructive process Most importantly, what I wanted to make sure was that the CT did not show was any incisional complications or concerns of inflammatory ischemic changes to any segment of small bowel. no evidence of obstruction, multiple air-fluid levels noted throughout the small bowel and colon suggesting mild diffuse ileus. No concerning fluid collections. Patient was reassured. The CT abdomen pelvis does not show anything acute warranting reoperative intervention Her previous complaint of pain may be secondary to her cramping from the diarrhea. Her abdominal pain concerns have resolved. Okay to continue diet as tolerated Continue fluids until adequate p.o. intake and diarrhea resolves Ellis Sauer M.D. General Surgery 05/28/2024 * Lian Sauer MD - 05/27/2024 8:22 AM CDT Hans Pascual is an 59-year-old female. Date of Service: 05/27/2024 SUBJECTIVE: Continues to feel well. Denies nausea or emesis. Tolerating liquids. Admits to flatus. No bowel movement. Patient ambulatory in hallways without difficulty. RN states no concerns OBJECTIVE: Temp (24hrs), Av.8 ??F (37.1 ??C), Min:98.1 ??F (36.7 ??C), Max:100.4 ??F (38 ??C) Filed Vitals: 05/26/24 1638 05/26/24 2020 05/27/24 0014 07/13/24 0531 BP: 114/59 125/75 119/68 117/69 Pulse: 67 78 69 66 Resp: 14 Temp: 100.4 ??F (38 ??C) 98.4 ??F (36.9 ??C) 98.2 ??F (36.8 ??C) 98.1 ??F (36.7 ??C) TempSrc: Oral Oral Oral Oral SpO2: 99% 99% 98% 100% Weight: Height: Exam: Abdomen soft appropriate mild tenderness at incision site. I have personally reviewed the labs and found them to be significant for: Labs: Lab Results Component Value Date NA 140 05/27/2024 K 3.6 05/27/2024 CL 115 (H) 05/27/2024 CO2 19.5 (L) 05/27/2024 AGAP 5.5 05/27/2024 BUN 4 (L) 05/27/2024 CR 0.52 (L) 05/27/2024 CR 0.62 05/26/2024 CR 0.59 05/25/2024 GLU 86 05/27/2024 CA 8.9 05/27/2024 Lab Results Component Value Date WBC 4.54 05/27/2024 WBC 6.56 05/26/2024 WBC 8.51 05/25/2024 HGB 10.9 (L) 05/27/2024 HGB 11.5 (L) 05/26/2024 HGB 11.5 (L) 05/25/2024 PLT 192 05/27/2024 PLT 195 05/26/2024 PLT 186 05/25/2024 Lab Results Component Value Date ALT 24 05/23/2024 ALT 29 05/22/2024 ALT 29 05/21/2024 TBIL 0.8 05/23/2024 TBIL 0.6 05/22/2024 TBIL 0.5 05/21/2024 ALKP 103 05/23/2024 ALKP 117 05/22/2024 ALKP 117 05/21/2024 IMPRESSION: Appropriate benign abdominal examination for postop Await bowel movement Okay for regular diet Will give tapwater enema, history of constipation Ellis Sauer M.D. General Surgery 05/27/2024 * Sonya Soila Cantrell, DO - 05/27/2024 7:26 AM CDT Hospitalist Daily Progress Note Subjective Patient seen and examined. She is feeling well. Minimal abdominal pain. Had a BM this morning. Dietadvanced to general this AM. No nausea or vomiting. VSS. Objective Filed Vitals: 05/26/24 1638 05/26/24 2020 05/27/24 0014 05/27/24 0531 BP: 114/59 125/75 119/68 117/69 Pulse: 67 78 69 66 Resp: 14 18 18 18 Temp: 100.4 ??F (38 ??C) 98.4 ??F (36.9 ??C) 98.2 ??F (36.8 ??C) 98.1 ??F (36.7 ??C) TempSrc: Oral Oral Oral Oral SpO2: 99% 99% 98% 100% Weight: Height: Intake/Output 24H Total: Intake/Output Summary (Last 24 hours) at 05/27/2024 0726 Last data filed at 05/26/2024 2100 Gross per 24 hour Intake 1000 ml Output -- Net 1000 ml Physical Exam: General: No acute distress, breathing comfortably on room air. Eyes: Extraocular movements intact ENT: Neck supple, Septum is midline. Lungs: Clear to auscultation bilaterally Cardiovascular: Regular rate rhythm Abdomen: Abdominal binder in place Extremities: no lower extremity edema. Neurological: Alert, awake, oriented Skin: Skin color, texture, turgor normal. No rashes or lesions Medications heparin (porcine) 5,000 Units Subcutaneous 2 times per day pantoprazole 40 mg Intravenous Daily acetaminophen, albuterol sulfate HFA, HYDROcodone-acetaminophen, morphine, morphine, ondansetron, phenol Labs, Imaging, Other Studies Recent Labs Lab 05/21/24 1529 05/22/24 0855 05/23/24 0110 05/24/24 0626 05/25/24 0610 05/26/24 0554 05/27/24 0525 WBC 7.53 10.00 8.97 10.43 8.51 6.56 4.54 RBC 3.96* 4.11* 4.11* 3.74* 3.45* 3.45* 3.32* HGB 13.1 13.6 13.8 12.1 11.5* 11.5* 10.9* HCT 38.7 40.3 39.8 37.5* 35.4* 34.7* 35.1* MCV 97.7* 98.1* 96.8* 100.3* 102.6* 100.6* 105.7* MCH 33.1* 33.1* 33.6* 32.4* 33.3* 33.3* 32.8* MCHC 33.9 33.7 34.7* 32.3 32.5 33.1 31.1* PLT 245 221 245 217 186 195 192 RDW 14.6 14.6 14.7 15.3* 15.0* 14.3 14.3 MPV 11.2 10.2 10.4 10.4 10.4 10.6 10.2 PERNEU 41.7* 84.2* 64.1 73.1 69.7 61.4 53.1 PERLYM 45.3* 9.6* 24.4 15.7 17.3 25.5 32.2 PERMON 11.0 5.4* 10.4 10.5 10.9 9.6 11.2 NEUC 3.14 8.42* 5.75 7.62 5.93 4.03 2.41 LYMC 3.41 0.96 2.19 1.64 1.47 1.67 1.46 MONOC -- -- -- 1.10* 0.93* 0.63 0.51 EOSC -- -- -- 0.00* 0.13 0.18 0.13 BASOC -- -- -- 0.02 0.02 0.04 0.02 DTYPE -- -- -- AUTOMATED DIFFERENTIAL AUTOMATED DIFFERENTIAL AUTOMATED DIFFERENTIAL AUTOMATED DIFFERENTIAL Recent Labs Lab 05/21/24 1529 05/22/24 0855 05/23/24 0110 05/24/24 0626 05/25/24 0610 05/26/24 0554 05/27/24 0525 NA 141 139 140 143 140 138 140 K 3.2* 4.1 3.6 3.7 3.3* 3.3* 3.6 CL 103 101 103 114* 110* 110* 115* CO2 23.9 27.0 25.2 20.8* 25.5 21.2 19.5* AGAP 14.1 11.0 11.8 8.2 4.5* 6.8 5.5 BUN 16 18 19* 26* 14 6* 4* CR 0.92 0.94 1.07* 0.62 0.59 0.62 0.52* BUNCREATININ 17.4 19.1 17.8 41.7* 23.6 9.7 7.6 GLU 92 137* 112* 96 128* 91 86 CA 10.0 10.4* 10.0 9.0 8.9 9.3 8.9 TP 7.6 7.8 7.4 -- -- -- -- ALB 3.6 3.7 3.4 -- -- -- -- TBIL 0.5 0.6 0.8 -- -- -- -- ALKP 117 117 103 -- -- -- -- AST 20 22 21 -- -- -- -- ALT 29 29 24 -- -- -- -- No results for input(s): CHOL , TRI , HDL , LDL , HGBA1C , TSH in the last 168 hours. No results for input(s): APTT , INR , PTT in the last 168 hours. No results for input(s): TROP , TROPIWB , CKMB , CPK in the last 168 hours. No results for input(s): LACTICACID , PROCT in the last 168 hours. No results for input(s): PH , PCO2 , PO2 , [id number] , BICARBWB , BASEDEFICIT , BASEEXCESS in the last 168 hours. Results for orders placed or performed during the hospital encounter of 05/21/24 URINALYSIS, AUTO, COMPLETE Result Value Ref Range COLOR (U) YELLOW TRANSPARENCY CLEAR SPECIFIC GRAVITY (U) 1.010 1.000 - 1.030 U PH 7.5 5.0 - 9.0 LEUKOCYTES (U) NEGATIVE NEGATIVE NITRITES NEGATIVE NEGATIVE PROTEIN RANDOM (U) NEGATIVE NEGATIVE GLUCOSE (U) NEGATIVE NEGATIVE KETONES (U) NEGATIVE NEGATIVE BILIRUBIN (U) NEGATIVE NEGATIVE BLOOD (U) NEGATIVE NEGATIVE WBC/HPF NONE SEEN 0 - 5 /HPF RBC/HPF NONE SEEN 0 - 5 /HPF EPI/HPF RARE /HPF Imaging XR SMALL BOWEL Result Date: 05/23/2024 EXAMINATION: SMALL BOWEL FOLLOW-THROUGH EXAM DATE: 05/23/2024 10:08 AM REASON FOR EXAM: Small bowel obstruction COMPARISON: CT 05/23/2024 2:40 AM TECHNIQUE: Utilization Review Specialist image of the abdomen was obtained, oral contrast was administered by NG tube. Images of the abdomen were obtained 20, 4 0, 60, 90, 120, 180 minutes after administration. FINDINGS: Utilization Review Specialist image demonstrates moderate smallbowel dilatation. NG tube is well-positioned within the stomach. At 20 and 40 and 60 minutes, contrast migrates within the small bowel and reaches the midportion small bowel, distal small bowel loopsremain unopacified. Consistent with small bowel obstruction. By 3 hours, contrast did not reach thelarge bowel, suggesting moderate to high-grade obstruction. Large bowel loops are mostly collapsed. IMPRESSION: 1. Diffuse small bowel dilatation, contrast does not reach the large bowel by 3 hours, suggesting moderate to high-grade obstruction. Ordered By: LIAN SAUER Interpreted By: Archie Clayton, 05/23/2024 2:02 PM XR CHEST PORTABLE Result Date: 05/23/2024 EXAMINATION: XR Portable CXR, 1 View INDICATION: Confirmation of Gastric Tube Placement. COMPARISON: CTA chest, abdomen and pelvis with contrast 05/21/2024. Portable AP chest x-ray 05/24/2018. FINDINGS:There is an enteric tube with sidehole in the fundus of the stomach and tip in the region of the distal fundus or proximal body of stomach. 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 Mild calcifications in the aortic arch. The cardiomediastinal silhouette is otherwise within normal limits. Pulmonary vascularity is normal. Small right pleural effusion is better seen on the comparison CT abdomen and pelvis exam of same date. There is mild prominence of interstitial markings in the lowerlobes, right more than left. No significant left pleural effusion. Upper lobes remain clear. No acute osseous abnormality. IMPRESSION: 1. Placement of enteric tube with tip in the distal fundus or proximal body of stomach.2. Small right pleural effusion, better seen on comparison CT abdomen and pelvis exam of same date.3. Mild prominence of interstitial markings in the lower lobes, right more than left, mild interstit ial pulmonary edema versus atypical pneumonia. Referred By: Interpreted By: Doris Leon MD, 05/23/2024 4:[address] ABD+PEL W IV CON ONLY Result Date: 05/23/2024 CT of the abdomen and pelvis with contrast INDICATION: Diffuse abdominal pain. Comparison is 05/21/2024. TECHNIQUE: Axial, coronal and sagittal images from the lung bases through the pubic symphysis with intravenous contrast. Radiation dose reduction technique(s) were used. FINDINGS: There is a smallright pleural effusion, new from the previous study. No basal infiltrates. Left lower lobe granuloma noted. Cholecystectomy is noted. The liver, spleen, pancreas, adrenals and kidneys appear normal. There is a very small amount of ascites. No upper abdominal or periaortic adenopathy. Scans of the pelvis show no mass, lymphadenopathy or free fluid. No bladder wall thickening or bladder calculus. The stomach is unremarkable. There are numerous distended fluid-filled small bowel loops up to 3.3 cmin diameter. The distal ileum is collapsed. Findings indicate a mid to distal small bowel obstruction, likely due to an adhesion. There is mild mesenteric edema. The appendix is normal. The colon is u nremarkable. No free peritoneal air. No hernias are identified. Degenerative changes noted at the lumbosacral disc. No acute bony abnormality. IMPRESSION: Mid to distal small bowel obstruction, likely due to an adhesion. Mild associated ascites. Small right pleural effusion. Referred By: Interpreted By: Toney Blackmon MD, 05/23/2024 2:54 AM ECG 12 lead Result Date: 05/22/2024 [facility] Test Date: 2024-05-22 [facility] Department: 85 Room: EXAM 505 Gender: Female Psychology Tech: : 1965 Requested By: NIMISHA RUANO Order Number: [id number] Reading MD: Guanako Hancock Measurements Intervals [place] Rate: 73 P: 82 [place]: 168 QRS: 58 QRSD: 89 T: 48 QT: 381 QTc: 422 Interpretive Statements SINUS RHYTHM Compared to ECG 09/01/2023 11:48:43 No significant changes CTA CHEST+ABD+PEL Result Date: 05/21/2024 Examination: CTA CHEST+ABD+PEL Exam time: 05/21/2024 4:48 PM INDICATION: Severe mid to left abdominalpain for one day. TECHNIQUE: After administration of 75 mL Isovue-370 IV contrast via the right arm, arterial phase multidetector CT images were obtained through the chest, abdomen, and pelvis. Multiplanar and MIP images were created and reviewed. In addition, 3D image processing was performed on a separate workstation by a technologist, with images sent to PACS for review. A dose lowering technique was used for this procedure, which may include, but is not limited to, dose reduction techniques, automated exposure control, the use of a iterative reconstruction, and ALARA (as low as reasonablyachievable)/image gently techniques. COMPARISON: None FINDINGS: CHEST: There is no evidence for thoracic aortic aneurysm or dissection. The origins of the great vessels are patent. There is no pulmonary embolism noted. There is evidence for previous granulomatous disease. Mild linear scarring or subsegmental atelectasis is noted in the left lower lobe. No airspace consolidation, pleural effusion,or pneumothorax. The central airways are patent. There is no lymphadenopathy. No pericardial effusion. No acute osseous abnormality. Abdomen/pelvis: There is no evidence for abdominal aortic aneurysmor dissection. The common and external iliac arteries are normal in caliber. The mesenteric vesselsare patent. There are patent single renal arteries. The liver and spleen are normal in size and contour. Cholecystectomy. The pancreas is unremarkable. No adrenal mass. No hydronephrosis. There is symmetric renal enhancement. There is no ureteral calculus. There is no calculus in the urinary bladder. There is no evidence for appendicitis. There is moderate mesenteric edema/stranding in the left mid and lower abdomen. There is no bowel obstruction or free intraperitoneal air. Evaluation for bowel wall thickening is essentially precluded due to the phase of enhancement. There is a 1.6 cm oval fat density lesion in a mid to distal jejunal bowel loop, evidence for a lipoma. There is no lymphadenopathy noted. There is no drainable fluid collection or abscess. No acute osseous abnormality. IMPRESSION: 1. There is moderate mesenteric edema/stranding in the left mid and lower abdomen, nonspecific but presumably related to enteritis. There is no evidence for a bowel obstruction. There is no drainable fluid collection or abscess noted. 2. There are no acute findings noted in the chest. Referred By: Interpreted By: Garcia Cosby MD, 05/21/2024 5:17 PM EKG: No results found for this visit on 05/23/24. Assessment & Plan SBO Ms. Pascual transferred from [facility] after 3 consecutive ER visits for worsening abd pain. CT A/P (05/23): mid to distal small bowel obstruction NG placed in ER at [facility] NPO/IVF Pain Control - monitor for toxicity Anti-emetics Surgery Consulted 05/23 SB X-ray: Diffuse small bowel dilatation, contrast does not reach the large bowel by 3 hours, suggesting moderate to high-grade obstruction S/p exploratory laparotomy and lysis of adhesions 05/23/24 Post op per surgery Up in chair, ambulate NG tube removed 05/25 Diet advanced to general, tolerating without n/v. Pain controlled Had a BM this morning Appreciate surgery rec's, possible d/c in 24 hours Hypokalemia Replete and monitor GERD/IBS PPI RA Maintained on Methotrexate Follows with [facility] Depression/Anxiety Restart home meds as able SDOH Reviewed, none as of 05/23 DVT Prophylaxis: Heparin SQ Code status: Full Code SONYA CANTRELL DO 05/27/2024 7:26 AM * Nessa Pan ORDER PROCESSING CLERK - 05/26/2024 2:20 PM CDT 05/26 Patient with positive flatus, no BM yet, diet to full liquids. Patient has been ambulating in halls without difficulty, plans to return home with spouse at discharge, currently declining home health cw * Nessa Pan ORDER PROCESSING CLERK - 05/26/2024 2:20 PM CDT Positive flatus, awaiting return of bowel function 05/26/24 1419 Interdisciplinary Group Conference Team Members Present Physician;Case/Care management;Nursing;PT/OT;Pharmacy Physician present for group conference Sonya Cantrell Barriers to Discharge Barriers Other (Comment) Other follow up (Comment) Positive flatus, awaiting return of bowel function Patient expects to be discharged to: Home or Self care no new needs * Lian Sauer MD - 05/26/2024 10:15 AM CDT Hans Pascual is an 59-year-old female. Date of Service: 05/26/2024 SUBJECTIVE: Up in bed. States feeling much better. Tolerated removal of NG tube and liquids. Admitsto flatus. Denies any significant abdominal pain OBJECTIVE: Temp (24hrs), Av ??F (37.2 ??C), Min:98.4 ??F (36.9 ??C), Max:99.7 ??F (37.6 ??C) Filed Vitals: 05/25/24 1915 05/26/24 0024 05/26/24 0500 05/26/24 0723 BP: 113/82 120/68 138/77 137/76 Pulse: 81 77 77 84 Resp: 18 16 17 15 Temp: 99.7 ??F (37.6 ??C) 99 ??F (37.2 ??C) 99.3 ??F (37.4 ??C) 98.6 ??F (37 ??C) TempSrc: Oral Oral Oral Oral SpO2: 99% 98% 100% 99% Weight: Height: Exam: Abdomen soft appropriate tenderness I have personally reviewed the labs and found them to be significant for: Labs: Lab Results Component Value Date NA 138 05/26/2024 K 3.3 (L) 05/26/2024 CL 110 (H) 05/26/2024 CO2 21.2 05/26/2024 AGAP 6.8 05/26/2024 BUN 6 (L) 05/26/2024 CR 0.62 05/26/2024 CR 0.59 05/25/2024 CR 0.62 05/24/2024 GLU 91 05/26/2024 CA 9.3 05/26/2024 Lab Results Component Value Date WBC 6.56 05/26/2024 WBC 8.51 05/25/2024 WBC 10.43 05/24/2024 HGB 11.5 (L) 05/26/2024 HGB 11.5 (L) 05/25/2024 HGB 12.1 05/24/2024 PLT 195 05/26/2024 PLT 186 05/25/2024 PLT 217 05/24/2024 Lab Results Component Value Date ALT 24 05/23/2024 ALT 29 05/22/2024 ALT 29 05/21/2024 TBIL 0.8 05/23/2024 TBIL 0.6 05/22/2024 TBIL 0.5 05/21/2024 ALKP 103 05/23/2024 ALKP 117 05/22/2024 ALKP 117 05/21/2024 IMPRESSION: Will advance diet to full liquids. Await bowel movement and then advance to regular diet Anticipate discharge this weekend if patient remains stable Ellis Sauer M.D. General Surgery 05/26/2024 * Sonya Cantrell, DO - 05/26/2024 7:15 AM CDT Hospitalist Daily Progress Note Subjective Patient seen and examined. Sitting up in bed. Passing flatus. Abdominal pain improving. Tolerating CLD. VSS. Objective Filed Vitals: 05/25/24 1701 05/25/24 1915 05/26/24 0024 05/26/24 0500 BP: 131/64 113/82 120/68 138/77 Pulse: 86 81 77 77 Resp: 18 18 16 17 Temp: 99.7 ??F (37.6 ??C) 99 ??F (37.2 ??C) 99.3 ??F (37.4 ??C) TempSrc: Oral Oral Oral Oral SpO2: 99% 99% 98% 100% Weight: Height: Intake/Output 24H Total: Intake/Output Summary (Last 24 hours) at 05/26/2024 0715 Last data filed at 05/25/2024 1828 Gross per 24 hour Intake 1565 ml Output 200 ml Net 1365 ml Physical Exam: General: No acute distress, breathing comfortably on room air. Eyes: Extraocular movements intact ENT: Neck supple, Septum is midline. Lungs: Clear to auscultation bilaterally Cardiovascular: Regular rate rhythm Abdomen: Abdominal binder in place Extremities: no lower extremity edema. Neurological: Alert, awake, oriented Skin: Skin color, texture, turgor normal. No rashes or lesions Medications heparin (porcine) 5,000 Units Subcutaneous 2 times per day pantoprazole 40 mg Intravenous Daily potassium chloride 40 mEq Intravenous Once acetaminophen, albuterol sulfate HFA, HYDROcodone-acetaminophen, morphine, morphine, ondansetron, phenol Labs, Imaging, Other Studies Recent Labs Lab 05/21/24 1529 05/22/24 0855 05/23/24 0110 05/24/24 0626 05/25/24 0610 05/26/24 0554 WBC 7.53 10.00 8.97 10.43 8.51 6.56 RBC 3.96* 4.11* 4.11* 3.74* 3.45* 3.45* HGB 13.1 13.6 13.8 12.1 11.5* 11.5* HCT 38.7 40.3 39.8 37.5* 35.4* 34.7* MCV 97.7* 98.1* 96.8* 100.3* 102.6* 100.6* MCH 33.1* 33.1* 33.6* 32.4* 33.3* 33.3* MCHC 33.9 33.7 34.7* 32.3 32.5 33.1 PLT 245 221 245 217 186 195 RDW 14.6 14.6 14.7 15.3* 15.0* 14.3 MPV 11.2 10.2 10.4 10.4 10.4 10.6 PERNEU 41.7* 84.2* 64.1 73.1 69.7 61.4 PERLYM 45.3* 9.6* 24.4 15.7 17.3 25.5 PERMON 11.0 5.4* 10.4 10.5 10.9 9.6 NEUC 3.14 8.42* 5.75 7.62 5.93 4.03 LYMC 3.41 0.96 2.19 1.64 1.47 1.67 MONOC -- -- -- 1.10* 0.93* 0.63 EOSC -- -- -- 0.00* 0.13 0.18 BASOC -- -- -- 0.02 0.02 0.04 DTYPE -- -- -- AUTOMATED DIFFERENTIAL AUTOMATED DIFFERENTIAL AUTOMATED DIFFERENTIAL Recent Labs Lab 05/21/24 1529 05/22/24 0855 05/23/24 0110 05/24/24 0626 05/25/24 0610 05/26/24 0554 NA 141 139 140 143 140 138 K 3.2* 4.1 3.6 3.7 3.3* 3.3* CL 103 101 103 114* 110* 110* CO2 23.9 27.0 25.2 20.8* 25.5 21.2 AGAP 14.1 11.0 11.8 8.2 4.5* 6.8 BUN 16 18 19* 26* 14 6* CR 0.92 0.94 1.07* 0.62 0.59 0.62 BUNCREATININ 17.4 19.1 17.8 41.7* 23.6 9.7 GLU 92 137* 112* 96 128* 91 CA 10.0 10.4* 10.0 9.0 8.9 9.3 TP 7.6 7.8 7.4 -- -- -- ALB 3.6 3.7 3.4 -- -- -- TBIL 0.5 0.6 0.8 -- -- -- ALKP 117 117 103 -- -- -- AST 20 22 21 -- -- -- ALT 29 29 24 -- -- -- No results for input(s): CHOL , TRI , HDL , LDL , HGBA1C , TSH in the last 168 hours. No results for input(s): APTT , INR , PTT in the last 168 hours. No results for input(s): TROP , TROPIWB , CKMB , CPK in the last 168 hours. No results for input(s): LACTICACID , PROCT in the last 168 hours. No results for input(s): PH , PCO2 , PO2 , [id number] , BICARBWB , BASEDEFICIT , BASEEXCESS in the last 168 hours. Results for orders placed or performed during the hospital encounter of 05/21/24 URINALYSIS, AUTO, COMPLETE Result Value Ref Range COLOR (U) YELLOW TRANSPARENCY CLEAR SPECIFIC GRAVITY (U) 1.010 1.000 - 1.030 U PH 7.5 5.0 - 9.0 LEUKOCYTES (U) NEGATIVE NEGATIVE NITRITES NEGATIVE NEGATIVE PROTEIN RANDOM (U) NEGATIVE NEGATIVE GLUCOSE (U) NEGATIVE NEGATIVE KETONES (U) NEGATIVE NEGATIVE BILIRUBIN (U) NEGATIVE NEGATIVE BLOOD (U) NEGATIVE NEGATIVE WBC/HPF NONE SEEN 0 - 5 /HPF RBC/HPF NONE SEEN 0 - 5 /HPF EPI/HPF RARE /HPF Imaging XR SMALL BOWEL Result Date: 05/23/2024 EXAMINATION: SMALL BOWEL FOLLOW-THROUGH EXAM DATE: 05/23/2024 10:08 AM REASON FOR EXAM: Small bowel obstruction COMPARISON: CT 05/23/2024 2:40 AM TECHNIQUE: Utilization Review Specialist image of the abdomen was obtained, oral contrast was administered by NG tube. Images of the abdomen were obtained 20, 4 0, 60, 90, 120, 180 minutes after administration. FINDINGS: Utilization Review Specialist image demonstrates moderate smallbowel dilatation. NG tube is well-positioned within the stomach. At 20 and 40 and 60 minutes, contrast migrates within the small bowel and reaches the midportion small bowel, distal small bowel loopsremain unopacified. Consistent with small bowel obstruction. By 3 hours, contrast did not reach thelarge bowel, suggesting moderate to high-grade obstruction. Large bowel loops are mostly collapsed. IMPRESSION: 1. Diffuse small bowel dilatation, contrast does not reach the large bowel by 3 hours, suggesting moderate to high-grade obstruction. Ordered By: LIAN SAUER Interpreted By: Archie Clayton, 05/23/2024 2:02 PM XR CHEST PORTABLE Result Date: 05/23/2024 EXAMINATION: XR Portable CXR, 1 View INDICATION: Confirmation of Gastric Tube Placement. COMPARISON: CTA chest, abdomen and pelvis with contrast 05/21/2024. Portable AP chest x-ray 05/24/2018. FINDINGS:There is an enteric tube with sidehole in the fundus of the stomach and tip in the region of the distal fundus or proximal body of stomach. 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 Mild calcifications in the aortic arch. The cardiomediastinal silhouette is otherwise within normal limits. Pulmonary vascularity is normal. Small right pleural effusion is better seen on the comparison CT abdomen and pelvis exam of same date. There is mild prominence of interstitial markings in the lowerlobes, right more than left. No significant left pleural effusion. Upper lobes remain clear. No acute osseous abnormality. IMPRESSION: 1. Placement of enteric tube with tip in the distal fundus or proximal body of stomach.2. Small right pleural effusion, better seen on comparison CT abdomen and pelvis exam of same date.3. Mild prominence of interstitial markings in the lower lobes, right more than left, mild interstit ial pulmonary edema versus atypical pneumonia. Referred By: Interpreted By: Doris Leon MD, 05/23/2024 4:[address] ABD+PEL W IV CON ONLY Result Date: 05/23/2024 CT of the abdomen and pelvis with contrast INDICATION: Diffuse abdominal pain. Comparison is 05/21/2024. TECHNIQUE: Axial, coronal and sagittal images from the lung bases through the pubic symphysis with intravenous contrast. Radiation dose reduction technique(s) were used. FINDINGS: There is a smallright pleural effusion, new from the previous study. No basal infiltrates. Left lower lobe granuloma noted. Cholecystectomy is noted. The liver, spleen, pancreas, adrenals and kidneys appear normal. There is a very small amount of ascites. No upper abdominal or periaortic adenopathy. Scans of the pelvis show no mass, lymphadenopathy or free fluid. No bladder wall thickening or bladder calculus. T he stomach is unremarkable. There are numerous distended fluid-filled small bowel loops up to 3.3 cm in diameter. The distal ileum is collapsed. Findings indicate a mid to distal small bowel obstruction, likely due to an adhesion. There is mild mesenteric edema. The appendix is normal. The colon is unremarkable. No free peritoneal air. No hernias are identified. Degenerative changes noted at the lumbosacral disc. No acute bony abnormality. IMPRESSION: Mid to distal small bowel obstruction, likely due to an adhesion. Mild associated ascites. Small right pleural effusion. Referred By: Interpreted By: Toney Blackmon MD, 05/23/2024 2:54 AM ECG 12 lead Result Date: 05/22/2024 [facility] Test Date: 2024-05-22 [facility] Department: 85 Room: EXAM 505 Gender: Female Psychology Tech: : [id number] Requested By: NIMISHA RUANO Order Number: [id number] Reading MD: Guanako Hancock Measurements Intervals [place] Rate: 73 P: 82 [place]: 168 QRS: 58 QRSD: 89 T: 48 QT: 381 QTc: 422 Interpretive Statements SINUS RHYTHM Compared to ECG09/01/2023 11:48:43 No significant changes CTA CHEST+ABD+PEL Result Date: 05/21/2024 Examination: CTA CHEST+ABD+PEL Exam time: 05/21/2024 4:48 PM INDICATION: Severe mid to left abdominalpain for one day. TECHNIQUE: After administration of 75 mL Isovue-370 IV contrast via the right arm, arterial phase multidetector CT images were obtained through the chest, abdomen, and pelvis. Multiplanar and MIP images were created and reviewed. In addition, 3D image processing was performed on a separate workstation by a technologist, with images sent to PACS for review. A dose lowering technique was used for this procedure, which may include, but is not limited to, dose reduction techniques, automated exposure control, the use of a iterative reconstruction, and ALARA (as low as reasonablyachievable)/image gently techniques. COMPARISON: None FINDINGS: CHEST: There is no evidence for thoracic aortic aneurysm or dissection. The origins of the great vessels are patent. There is no pulmonary embolism noted. There is evidence for previous granulomatous disease. Mild linear scarring or subsegmental atelectasis is noted in the left lower lobe. No airspace consolidation, pleural effusion,or pneumothorax. The central airways are patent. There is no lymphadenopathy. No pericardial effusion. No acute osseous abnormality. Abdomen/pelvis: There is no evidence for abdominal aortic aneurysmor dissection. The common and external iliac arteries are normal in caliber. The mesenteric vesselsare patent. There are patent single renal arteries. The liver and spleen are normal in size and contour. Cholecystectomy. The pancreas is unremarkable. No adrenal mass. No hydronephrosis. There is symmetric renal enhancement. There is no ureteral calculus. There is no calculus in the urinary bladder. There is no evidence for appendicitis. There is moderate mesenteric edema/stranding in the left mid and lower abdomen. There is no bowel obstruction or free intraperitoneal air. Evaluation for bowel wall thickening is essentially precluded due to the phase of enhancement. There is a 1.6 cm oval fat density lesion in a mid to distal jejunal bowel loop, evidence for a lipoma. There is no lymphadenopathy noted. There is no drainable fluid collection or abscess. No acute osseous abnormality. IMPRESSION: 1. There is moderate mesenteric edema/stranding in the left mid and lower abdomen, nonspecific but presumably related to enteritis. There is no evidence for a bowel obstruction. There is no drainable fluid collection or abscess noted. 2. There are no acute findings noted in the chest. Referred By: Interpreted By: Garcia Cosby MD, 05/21/2024 5:17 PM EKG: No results found for this visit on 05/23/24. Assessment & Plan SBO Ms. Pascual transferred from [facility] after 3 consecutive ER visits for worsening abd pain. CT A/P (05/23): mid to distal small bowel obstruction NG placed in ER at [facility] NPO/IVF Pain Control - monitor for toxicity Anti-emetics Surgery Consulted 05/23 SB X-ray: Diffuse small bowel dilatation, contrast does not reach the large bowel by 3 hours, suggesting moderate to high-grade obstruction S/p exploratory laparotomy and lysis of adhesions 05/23/24 Post op per surgery Up in chair, ambulate NG tube removed 05/25 Tolerating CLD; advanced to full liquid diet today per surgery Await return of bowel function Hypokalemia Replete and monitor GERD/IBS PPI RA Maintained on Methotrexate Follows with [facility] Depression/Anxiety Restart home meds as able SDOH Reviewed, none as of 05/23 DVT Prophylaxis: Heparin SQ Code status: Full Code SONYA L CANTRELL, DO 05/26/2024 7:15 AM * Dunia Souza RN - 05/25/2024 10:42 PM CDT Problem: Discharge Planning Goal: Knowledge of discharge instructions Outcome: Progressing Problem: Pain control/comfort Goal: Promote pain control/comfort Outcome: Progressing Problem: Skin integrity, Impaired-wound Goal: Absence of new skin breakdown Outcome: Progressing Goal: Evidence of wound healing Outcome: Progressing Problem: Skin integrity, at risk Goal: Absence of new skin breakdown Outcome: Progressing Problem: Moisture associated skin impairment Goal: Reduce moisture exposure Outcome: Progressing * Nessa Pan ORDER PROCESSING CLERK - 05/25/2024 2:50 PM CDT 05/25 NG d/c'd today, patient on clear liquid diet, awaiting return of bowel function. Patient ambulating in halls cw * Nessa Pan ORDER PROCESSING CLERK - 05/25/2024 2:50 PM CDT NG d/c'd , clear liquid diet, awaiting return of bowel function 05/25/24 1449 Interdisciplinary Group Conference Team Members Present Physician;Case/Care management;Nursing;PT/OT;Pharmacy Physician present for group conference Sonya lara Barriers to Discharge Barriers Other (Comment) Other follow up (Comment) NG d/c'd today, clear liquid diet, awaiting return of bowel function Patient expects to be discharged to: Home or Self care no new needs * Lian Sauer MD - 05/25/2024 10:17 AM CDT Hans Pascual is an 59-year-old female. Date of Service: 05/25/2024 SUBJECTIVE: Up in chair. States feeling much better. Admits to bowel sounds. Denies flatus or bowelmovement., Low NG tube output OBJECTIVE: Temp (24hrs), Av.4 ??F (36.9 ??C), Min:97.5 ??F (36.4 ??C), Max:99.3 ??F (37.4 ??C) Filed Vitals: 05/24/24 2041 05/24/24 2323 05/25/24 0420 05/25/24723 BP: 123/68 124/67 119/72 125/69 Pulse: 78 81 80 84 Resp: 18 16 18 18 Temp: 98.6 ??F (37 ??C) 98.8 ??F (37.1 ??C) 99.3 ??F (37.4 ??C) 97.9 ??F (36.6 ??C) TempSrc: Oral Oral Oral SpO2: 95% 97% 95% 98% Weight: Height: Exam: Abdomen soft, appropriate tenderness, incision site clean dry intact with augustine I have personally reviewed the labs and found them to be significant for: Labs: Lab Results Component Value Date NA 140 05/25/2024 K 3.3 (L) 05/25/2024 CL 110 (H) 05/25/2024 CO2 25.5 05/25/2024 AGAP 4.5 (L) 05/25/2024 BUN 14 05/25/2024 CR 0.59 05/25/2024 CR 0.62 05/24/2024 CR 1.07 (H) 05/23/2024 GLU 128 (H) 05/25/2024 CA 8.9 05/25/2024 Lab Results Component Value Date WBC 8.51 05/25/2024 WBC 10.43 05/24/2024 WBC 8.97 05/23/2024 HGB 11.5 (L) 05/25/2024 HGB 12.1 05/24/2024 HGB 13.8 05/23/2024 PLT 186 05/25/2024 PLT 217 05/24/2024 PLT 245 05/23/2024 Lab Results Component Value Date ALT 24 05/23/2024 ALT 29 05/22/2024 ALT 29 05/21/2024 TBIL 0.8 05/23/2024 TBIL 0.6 05/22/2024 TBIL 0.5 05/21/2024 ALKP 103 05/23/2024 ALKP 117 05/22/2024 ALKP 117 05/21/2024 IMPRESSION: Will clamp NG tube and start clears Monitor for postoperative ileus Encourage ambulation Heparin subcu for DVT prophylaxis Ellis Sauer M.D. General Surgery 05/25/2024 * Iris Ellsworth RN - 05/25/2024 9:42 AM CDT Problem: Discharge Planning Goal: Knowledge of discharge instructions Outcome: Progressing Problem: Pain control/comfort Goal: Promote pain control/comfort Outcome: Progressing Problem: Skin integrity, Impaired-wound Goal: Absence of new skin breakdown Outcome: Progressing Goal: Evidence of wound healing Outcome: Progressing Problem: Skin integrity, Impaired-pressure injury/ulcer Goal: Absence of new skin breakdown Outcome: Progressing Goal: Evidence of pressure injury/ulcer healing Outcome: Progressing Problem: Skin integrity, at risk Goal: Absence of new skin breakdown Outcome: Progressing Problem: Moisture associated skin impairment Goal: Reduce moisture exposure Outcome: Progressing Goal: Evidence of wound healing Outcome: Progressing Goal: Evidence of pressure injury/ulcer healing Outcome: Progressing Goal: Absence of new skin breakdown Outcome: Progressing Problem: Reduced risk for falls/injury Goal: Reduced Risk for Falls/Injury Outcome: Progressing Goal: Reduced Risk of Confusion (Acute vs Chronic) Outcome: Progressing Goal: Reduced Risk of Symptomatic Depression Outcome: Progressing Goal: Reduced Risk of Altered Elimination Outcome: Progressing Goal: Reduced Risk of Dizziness/Vertigo/Balance Outcome: Progressing Goal: Reduced Risk of Polypharmacy Outcome: Progressing * Sonya Cantrell DO - 05/25/2024 7:22 AM CDT Hospitalist Daily Progress Note Subjective Patient seen and examined. Feeling a little better. Pain improving. Ambulating through the halls. Voiding without difficulty. Objective Filed Vitals: 05/24/24 1617 05/24/24 2041 05/24/24 2323 05/25/24 0420 BP: 121/63 123/68 124/67 119/72 Pulse: 75 78 81 80 Resp: 18 18 16 18 Temp: 98.6 ??F (37 ??C) 98.8 ??F (37.1 ??C) 99.3 ??F (37.4 ??C) TempSrc: Oral Oral Oral SpO2: 98% 95% 97% 95% Weight: Height: Intake/Output 24H Total: Intake/Output Summary (Last 24 hours) at 05/25/2024 0722 Last data filed at 05/25/2024 0600 Gross per 24 hour Intake 260 ml Output 400 ml Net -140 ml Physical Exam: General: No acute distress, breathing comfortably on room air. Eyes: Extraocular movements intact ENT: Neck supple, Septum is midline. Lungs: Clear to auscultation bilaterally Cardiovascular: Regular rate rhythm Abdomen: Abdominal binder in place Extremities: no lower extremity edema. Neurological: Alert, awake, oriented x3, No gross neuro deficit Skin: Skin color, texture, turgor normal. No rashes or lesions Medications heparin (porcine) 5,000 Units Subcutaneous 2 times per day pantoprazole 40 mg Intravenous Daily dextrose 5% lactated ringers 100 mL/hr at 05/24/24 0800 lactated ringers Stopped (05/23/24 1947) acetaminophen, albuterol sulfate HFA, HYDROcodone-acetaminophen, morphine, morphine, ondansetron, phenol Labs, Imaging, Other Studies Recent Labs Lab 05/21/24 1529 05/22/24 0855 05/23/24 0110 05/24/24 0626 05/25/24 0610 WBC 7.53 10.00 8.97 10.43 8.51 RBC 3.96* 4.11* 4.11* 3.74* 3.45* HGB 13.1 13.6 13.8 12.1 11.5* HCT 38.7 40.3 39.8 37.5* 35.4* MCV 97.7* 98.1* 96.8* 100.3* 102.6* MCH 33.1* 33.1* 33.6* 32.4* 33.3* MCHC 33.9 33.7 34.7* 32.3 32.5 PLT 245 221 245 217 186 RDW 14.6 14.6 14.7 15.3* 15.0* MPV 11.2 10.2 10.4 10.4 10.4 PERNEU 41.7* 84.2* 64.1 73.1 69.7 PERLYM 45.3* 9.6* 24.4 15.7 17.3 PERMON 11.0 5.4* 10.4 10.5 10.9 NEUC 3.14 8.42* 5.75 7.62 5.93 [facility] 3.41 0.96 2.19 1.64 1.47 MONOC -- -- -- 1.10* 0.93* EOSC -- -- -- 0.00* 0.13 BASOC -- -- -- 0.02 0.02 DTYPE -- -- -- AUTOMATED DIFFERENTIAL AUTOMATED DIFFERENTIAL Recent Labs Lab 05/21/24 1529 05/22/24 0855 05/23/24 0110 05/24/24 0626 05/25/24 0610 NA 141 139 140 143 140 K 3.2* 4.1 3.6 3.7 3.3* CL 103 101 103 114* 110* CO2 23.9 27.0 25.2 20.8* 25.5 AGAP 14.1 11.0 11.8 8.2 4.5* BUN 16 18 19* 26* 14 CR 0.92 0.94 1.07* 0.62 0.59 BUNCREATININ 17.4 19.1 17.8 41.7* 23.6 GLU 92 137* 112* 96 128* CA 10.0 10.4* 10.0 9.0 8.9 TP 7.6 7.8 7.4 -- -- ALB 3.6 3.7 3.4 -- -- TBIL 0.5 0.6 0.8 -- -- ALKP 117 117 103 -- -- AST 20 22 21 -- -- ALT 29 29 24 -- -- No results for input(s): CHOL , TRI , HDL , LDL , HGBA1C , TSH in the last 168 hours. No results for input(s): APTT , INR , PTT in the last 168 hours. No results for input(s): TROP , TROPIWB , CKMB , CPK in the last 168 hours. No results for input(s): LACTICACID , PROCT in the last 168 hours. No results for input(s): PH , PCO2 , PO2 , [id number] , BICARBWB , BASEDEFICIT , BASEEXCESS in the last 168 hours. Results for orders placed or performed during the hospital encounter of 05/21/24 URINALYSIS, AUTO, COMPLETE Result Value Ref Range COLOR (U) YELLOW TRANSPARENCY CLEAR SPECIFIC GRAVITY (U) 1.010 1.000 - 1.030 U PH 7.5 5.0 - 9.0 LEUKOCYTES (U) NEGATIVE NEGATIVE NITRITES NEGATIVE NEGATIVE PROTEIN RANDOM (U) NEGATIVE NEGATIVE GLUCOSE (U) NEGATIVE NEGATIVE KETONES (U) NEGATIVE NEGATIVE BILIRUBIN (U) NEGATIVE NEGATIVE BLOOD (U) NEGATIVE NEGATIVE WBC/HPF NONE SEEN 0 - 5 /HPF RBC/HPF NONE SEEN 0 - 5 /HPF EPI/HPF RARE /HPF Imaging XR SMALL BOWEL Result Date: 05/23/2024 EXAMINATION: SMALL BOWEL FOLLOW-THROUGH EXAM DATE: 05/23/2024 10:08 AM REASON FOR EXAM: Small bowel obstruction COMPARISON: CT 05/23/2024 2:40 AM TECHNIQUE: Utilization Review Specialist image of the abdomen was obtained, oral contrast was administered by NG tube. Images of the abdomen were obtained 20, 4 0, 60, 90, 120, 180 minutes after administration. FINDINGS: Utilization Review Specialist image demonstrates moderate smallbowel dilatation. NG tube is well-positioned within the stomach. At 20 and 40 and 60 minutes, contrast migrates within the small bowel and reaches the midportion small bowel, distal small bowel loopsremain unopacified. Consistent with small bowel obstruction. By 3 hours, contrast did not reach thelarge bowel, suggesting moderate to high-grade obstruction. Large bowel loops are mostly collapsed. IMPRESSION: 1. Diffuse small bowel dilatation, contrast does not reach the large bowel by 3 hours, suggesting moderate to high-grade obstruction. Ordered By: LIAN SAUER Interpreted By: Archie Clayton, 05/23/2024 2:02 PM XR CHEST PORTABLE Result Date: 05/23/2024 EXAMINATION: XR Portable CXR, 1 View INDICATION: Confirmation of Gastric Tube Placement. COMPARISON: CTA chest, abdomen and pelvis with contrast 05/21/2024. Portable AP chest x-ray 05/24/2018. FINDINGS:There is an enteric tube with sidehole in the fundus of the stomach and tip in the region of the distal fundus or proximal body of stomach. 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 Mild calcifications in the aortic arch. The cardiomediastinal silhouette is otherwise within normal limits. Pulmonary vascularity is normal. Small right pleural effusion is better seen on the comparison CT abdomen and pelvis exam of same date. There is mild prominence of interstitial markings in the lowerlobes, right more than left. No significant left pleural effusion. Upper lobes remain clear. No acute osseous abnormality. IMPRESSION: 1. Placement of enteric tube with tip in the distal fundus or proximal body of stomach.2. Small right pleural effusion, better seen on comparison CT abdomen and pelvis exam of same date.3. Mild prominence of interstitial markings in the lower lobes, right more than left, mild interstit ial pulmonary edema versus atypical pneumonia. Referred By: Interpreted By: Doris Leon MD, 05/23/2024 4:[address] ABD+PEL W IV CON ONLY Result Date: 05/23/2024 CT of the abdomen and pelvis with contrast INDICATION: Diffuse abdominal pain. Comparison is 05/21/2024. TECHNIQUE: Axial, coronal and sagittal images from the lung bases through the pubic symphysis with intravenous contrast. Radiation dose reduction technique(s) were used. FINDINGS: There is a smallright pleural effusion, new from the previous study. No basal infiltrates. Left lower lobe granuloma noted. Cholecystectomy is noted. The liver, spleen, pancreas, adrenals and kidneys appear normal. There is a very small amount of ascites. No upper abdominal or periaortic adenopathy. Scans of the pelvis show no mass, lymphadenopathy or free fluid. No bladder wall thickening or bladder calculus. The stomach is unremarkable. There are numerous distended fluid-filled small bowel loops up to 3.3 cmin diameter. The distal ileum is collapsed. Findings indicate a mid to distal small bowel obstruction, likely due to an adhesion. There is mild mesenteric edema. The appendix is normal. The colon is u nremarkable. No free peritoneal air. No hernias are identified. Degenerative changes noted at the lumbosacral disc. No acute bony abnormality. IMPRESSION: Mid to distal small bowel obstruction, likely due to an adhesion. Mild associated ascites. Small right pleural effusion. Referred By: Interpreted By: Toney Blackmon MD, 05/23/2024 2:54 AM ECG 12 lead Result Date: 05/22/2024 [facility] Test Date: 2024-05-22 [facility] Department: 85 Room: EXAM 505 Gender: Female Psychology Tech: : 1965 Requested By: NIMISHA RUANO Order Number: [id number] Reading MD: Guanako Hancock Measurements Intervals [place] Rate: 73 P: 82 [place]: 168 QRS: 58 QRSD: 89 T: 48 QT: 381 QTc: 422 Interpretive Statements SINUS RHYTHM Compared to ECG 09/01/2023 11:48:43 No significant changes CTA CHEST+ABD+PEL Result Date: 05/21/2024 Examination: CTA CHEST+ABD+PEL Exam time: 05/21/2024 4:48 PM INDICATION: Severe mid to left abdominalpain for one day. TECHNIQUE: After administration of 75 mL Isovue-370 IV contrast via the right arm, arterial phase multidetector CT images were obtained through the chest, abdomen, and pelvis. Multiplanar and MIP images were created and reviewed. In addition, 3D image processing was performed on a separate workstation by a technologist, with images sent to PACS for review. A dose lowering technique was used for this procedure, which may include, but is not limited to, dose reduction techniques, automated exposure control, the use of a iterative reconstruction, and ALARA (as low as reasonablyachievable)/image gently techniques. COMPARISON: None FINDINGS: CHEST: There is no evidence for thoracic aortic aneurysm or dissection. The origins of the great vessels are patent. There is no pulmonary embolism noted. There is evidence for previous granulomatous disease. Mild linear scarring or subsegmental atelectasis is noted in the left lower lobe. No airspace consolidation, pleural effusion,or pneumothorax. The central airways are patent. There is no lymphadenopathy. No pericardial effusion. No acute osseous abnormality. Abdomen/pelvis: There is no evidence for abdominal aortic aneurysmor dissection. The common and external iliac arteries are normal in caliber. The mesenteric vesselsare patent. There are patent single renal arteries. The liver and spleen are normal in size and contour. Cholecystectomy. The pancreas is unremarkable. No adrenal mass. No hydronephrosis. There is symmetric renal enhancement. There is no ureteral calculus. There is no calculus in the urinary bladder. There is no evidence for appendicitis. There is moderate mesenteric edema/stranding in the left mid and lower abdomen. There is no bowel obstruction or free intraperitoneal air. Evaluation for bowel wall thickening is essentially precluded due to the phase of enhancement. There is a 1.6 cm oval fat density lesion in a mid to distal jejunal bowel loop, evidence for a lipoma. There is no lymphadenopathy noted. There is no drainable fluid collection or abscess. No acute osseous abnormality. IMPRESSION: 1. There is moderate mesenteric edema/stranding in the left mid and lower abdomen, nonspecific but presumably related to enteritis. There is no evidence for a bowel obstruction. There is no drainable fluid collection or abscess noted. 2. There are no acute findings noted in the chest. Referred By: Interpreted By: Garcia Cosby MD, 05/21/2024 5:17 PM EKG: No results found for this visit on 05/23/24. Assessment & Plan SBO Ms. Pascual transferred from [facility] after 3 consecutive ER visits for worsening abd pain. CT A/P (05/23): mid to distal small bowel obstruction NG placed in ER at [facility] NPO/IVF Pain Control - monitor for toxicity Anti-emetics Surgery Consulted 05/23 SB X-ray: Diffuse small bowel dilatation, contrast does not reach the large bowel by 3 hours, suggesting moderate to high-grade obstruction S/p exploratory laparotomy and lysis of adhesions 05/23/24 Post op per surgery Up in chair, ambulate Await return of bowel function NG tube clamped today CLD started Hypokalemia Replete and monitor GERD/IBS PPI RA Maintained on Methotrexate Follows with [facility] Depression/Anxiety Restart home meds once taking po SDOH Reviewed, none as of 05/23 DVT Prophylaxis: Heparin SQ Code status: Full Code SONYA CANTRELL DO 05/25/2024 7:22 AM * Dunia Souza RN - 05/24/2024 10:33 PM CDT Problem: Discharge Planning Goal: Knowledge of discharge instructions Outcome: Progressing Problem: Pain control/comfort Goal: Promote pain control/comfort Outcome: Progressing Problem: Skin integrity, Impaired-wound Goal: Absence of new skin breakdown Outcome: Progressing Problem: Skin integrity, at risk Goal: Absence of new skin breakdown Outcome: Progressing Problem: Moisture associated skin impairment Goal: Reduce moisture exposure Outcome: Progressing Goal: Evidence of wound healing Outcome: Progressing Problem: Reduced risk for falls/injury Goal: Reduced Risk for Falls/Injury Outcome: Progressing * Nessa Pan, ORDER PROCESSING CLERK - 05/24/2024 2:03 PM CDT Patient lives with spouse, is independent, plans to return home at discharge, spouse will provide transportation. Insurance verified as [employer] PCP: [facility] 05/24/24 1402 Referral Data Source of Information Patient Patient Information Primary Caregiver Self Current living Situation Spouse/significant other Type of Residence Private residence Support System Spouse/Significant Other;Immediate family;Extended family Baseline ADL's Functional Status Independent Behavior Oriented Communication Talks;Understands speaking Psychosocial Need Indicator Mental health concerns No Diagnosis/prognosis resulting in poor adjustment or coping with illness No Diagnosis/prognosis with anticipated outcome of major lifestyle changes, 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 The screening is to screen the patient for what services and destination would be beneficial for patient for next level of care Conversation with the patient/family Will the patient be returning to prior living situation with no new identified needs? Yes Based on the screening the DC plan for consideration is: Patient expects to be discharged to: Home or Self care no new needs Adequate Resources Available Adequate Resources Yes * Nessa Pan ORDER PROCESSING CLERK - 05/24/2024 1:55 PM CDT Awaiting bowel function return, NPO, NG 05/24/24 1355 Interdisciplinary Group Conference Team Members Present Physician;Case/Care management;Nursing;PT/OT;Pharmacy Physician present for group conference Sonya Cantrell Barriers to Discharge Barriers Other (Comment) Other follow up (Comment) NPO, NG, awaiting bowel function Patient expects to be discharged to: Home or Self care no new needs * Lian Sauer MD - 05/24/2024 12:03 PM CDT Hans Pascual is an 59-year-old female. Date of Service: 05/24/2024 SUBJECTIVE: Resting comfortably. States overall feeling better than preop state. NG tube in place OBJECTIVE: Temp (24hrs), Av ??F (36.7 ??C), Min:97 ??F (36.1 ??C), Max:99 ??F (37.2 ??C) Filed Vitals: 05/24/24 0000 05/24/24 0400 05/24/24 0745 05/24/24 1147 BP: 122/63 135/71 120/69 122/63 Pulse: 87 77 75 85 Resp: 16 16 16 18 Temp: 98.1 ??F (36.7 ??C) 97.8 ??F (36.6 ??C) 97.9 ??F (36.6 ??C) 97.5 ??F (36.4 ??C) TempSrc: Temporal Temporal Oral Oral SpO2: 92% 93% 97% 96% Weight: Exam: Abdomen, dressings in place binder in place I have personally reviewed the labs and found them to be significant for: Labs: Lab Results Component Value Date NA 143 05/24/2024 K 3.7 05/24/2024 CL 114 (H) 05/24/2024 CO2 20.8 (L) 05/24/2024 AGAP 8.2 05/24/2024 BUN 26 (H) 05/24/2024 CR 0.62 05/24/2024 CR 1.07 (H) 05/23/2024 CR 0.94 05/22/2024 GLU 96 05/24/2024 CA 9.0 05/24/2024 Lab Results Component Value Date WBC 10.43 05/24/2024 WBC 8.97 05/23/2024 WBC 10.00 05/22/2024 HGB 12.1 05/24/2024 HGB 13.8 05/23/2024 HGB 13.6 05/22/2024 PLT 217 05/24/2024 PLT 245 05/23/2024 PLT 221 05/22/2024 Lab Results Component Value Date ALT 24 05/23/2024 ALT 29 05/22/2024 ALT 29 05/21/2024 TBIL 0.8 05/23/2024 TBIL 0.6 05/22/2024 TBIL 0.5 05/21/2024 ALKP 103 05/23/2024 ALKP 117 05/22/2024 ALKP 117 05/21/2024 IMPRESSION: Continue bowel rest with NG tube decompression 1 more day for anticipated postoperative ileus Encourage increased ambulation Ellis Sauer M.D. General Surgery 05/24/2024 * Iris Ellsworth RN - 05/24/2024 8:15 AM CDT Problem: Discharge Planning Goal: Knowledge of discharge instructions Outcome: Progressing Problem: Pain control/comfort Goal: Promote pain control/comfort Outcome: Progressing Problem: Skin integrity, Impaired-wound Goal: Absence of new skin breakdown Outcome: Progressing Goal: Evidence of wound healing Outcome: Progressing Problem: Skin integrity, Impaired-pressure injury/ulcer Goal: Absence of new skin breakdown Outcome: Progressing Goal: Evidence of pressure injury/ulcer healing Outcome: Progressing Problem: Skin integrity, at risk Goal: Absence of new skin breakdown Outcome: Progressing Problem: Moisture associated skin impairment Goal: Reduce moisture exposure Outcome: Progressing Goal: Evidence of wound healing Outcome: Progressing Goal: Evidence of pressure injury/ulcer healing Outcome: Progressing Goal: Absence of new skin breakdown Outcome: Progressing Problem: Reduced risk for falls/injury Goal: Reduced Risk for Falls/Injury Outcome: Progressing Goal: Reduced Risk of Confusion (Acute vs Chronic) Outcome: Progressing Goal: Reduced Risk of Symptomatic Depression Outcome: Progressing Goal: Reduced Risk of Altered Elimination Outcome: Progressing Goal: Reduced Risk of Dizziness/Vertigo/Balance Outcome: Progressing Goal: Reduced Risk of Polypharmacy Outcome: Progressing * Sonya Cantrell DO - 05/24/2024 7:17 AM CDT Hospitalist Daily Progress Note Subjective Patient seen and examined. Sitting up in bed. Having throat pain from the NG tube and some abdominal pain. She walked the halls this morning. No flatus. No nausea or vomiting. VSS. Objective Filed Vitals: 05/23/24 2200 05/23/24 2300 05/24/24 0000 05/24/24 0400 BP: 133/71 123/65 122/63 135/71 Pulse: 86 78 87 77 Resp: 20 16 16 16 Temp: 98.1 ??F (36.7 ??C) 97.8 ??F (36.6 ??C) TempSrc: Temporal Temporal SpO2: 94% 93% 92% 93% Weight: Intake/Output 24H Total: Intake/Output Summary (Last 24 hours) at 05/24/2024 0717 Last data filed at 05/24/2024 0600 Gross per 24 hour Intake 850 ml Output 1705 ml Net -855 ml Physical Exam: General: No acute distress, breathing comfortably on room air. Eyes: Extraocular movements intact ENT: Neck supple, Septum is midline. Lungs: Clear to auscultation bilaterally Cardiovascular: Regular rate rhythm Abdomen: Abdominal binder in place Extremities: no lower extremity edema. Neurological: Alert, awake, oriented x3, No gross neuro deficit Skin: Skin color, texture, turgor normal. 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 heparin (porcine) 5,000 Units Subcutaneous 2 times per day pantoprazole 40 mg Intravenous Daily lactated ringers Stopped (05/23/241946) sodium chloride 125 mL/hr at 05/24/24 0202 acetaminophen, albuterol sulfate HFA, HYDROcodone-acetaminophen, morphine, morphine, ondansetron Labs, Imaging, Other Studies Recent Labs Lab 05/21/24 1529 05/22/24 0855 05/23/24 0110 05/24/24 0626 WBC 7.53 10.00 8.97 10.43 RBC 3.96* 4.11* 4.11* 3.74* HGB 13.1 13.6 13.8 12.1 HCT 38.7 40.3 39.8 37.5* MCV 97.7* 98.1* 96.8* 100.3* MCH 33.1* 33.1* 33.6* 32.4* MCHC 33.9 33.7 34.7* 32.3 PLT 245 221 245 217 RDW 14.6 14.6 14.7 15.3* MPV 11.2 10.2 10.4 10.4 PERNEU 41.7* 84.2* 64.1 73.1 PERLYM 45.3* 9.6* 24.4 15.7 PERMON 11.0 5.4* 10.4 10.5 NEUC 3.14 8.42* 5.75 7.62 LYMC 3.41 0.96 2.19 1.64 MONOC -- -- -- 1.10* EOSC -- -- -- 0.00* BASOC -- -- -- 0.02 DTYPE -- -- -- AUTOMATED DIFFERENTIAL Recent Labs Lab 05/21/24 1529 05/22/24 0855 05/23/24 0110 05/24/24 0626 NA 141 139 140 143 K 3.2* 4.1 3.6 3.7 CL 103 101 103 114* CO2 23.9 27.0 25.2 20.8* AGAP 14.1 11.0 11.8 8.2 BUN 16 18 19* 26* CR 0.92 0.94 1.07* 0.62 BUNCREATININ 17.4 19.1 17.8 41.7* GLU 92 137* 112* 96 CA 10.0 10.4* 10.0 9.0 TP 7.6 7.8 7.4 -- ALB 3.6 3.7 3.4 -- TBIL 0.5 0.6 0.8 -- ALKP 117 117 103 -- AST 20 22 21 -- ALT 29 29 24 -- No results for input(s): CHOL , TRI , HDL , LDL , HGBA1C , TSH in the last 168 hours. No results for input(s): APTT , INR , PTT in the last 168 hours. No results for input(s): TROP , TROPIWB , CKMB , CPK in the last 168 hours. No results for input(s): LACTICACID , PROCT in the last 168 hours. No results for input(s): PH , PCO2 , PO2 , [id number] , BICARBWB , BASEDEFICIT , BASEEXCESS in the last 168 hours. Results for orders placed or performed during the hospital encounter of 05/21/24 URINALYSIS, AUTO, COMPLETE Result Value Ref Range COLOR (U) YELLOW TRANSPARENCY CLEAR SPECIFIC GRAVITY (U) 1.010 1.000 - 1.030 U PH 7.5 5.0 - 9.0 LEUKOCYTES (U) NEGATIVE NEGATIVE NITRITES NEGATIVE NEGATIVE PROTEIN RANDOM (U) NEGATIVE NEGATIVE GLUCOSE (U) NEGATIVE NEGATIVE KETONES (U) NEGATIVE NEGATIVE BILIRUBIN (U) NEGATIVE NEGATIVE BLOOD (U) NEGATIVE NEGATIVE WBC/HPF NONE SEEN 0 - 5 /HPF RBC/HPF NONE SEEN 0 - 5 /HPF EPI/HPF RARE /HPF Imaging XR SMALL BOWEL Result Date: 05/23/2024 EXAMINATION: SMALL BOWEL FOLLOW-THROUGH EXAM DATE: 05/23/2024 10:08 AM REASON FOR EXAM: Small bowel obstruction COMPARISON: CT 05/23/2024 2:40 AM TECHNIQUE: Utilization Review Specialist image of the abdomen was obtained, oral contrast was administered by NG tube. Images of the abdomen were obtained 20, 4 0, 60, 90, 120, 180 minutes after administration. FINDINGS: Utilization Review Specialist image demonstrates moderate smallbowel dilatation. NG tube is well-positioned within the stomach. At 20 and 40 and 60 minutes, contrast migrates within the small bowel and reaches the midportion small bowel, distal small bowel loopsremain unopacified. Consistent with small bowel obstruction. By 3 hours, contrast did not reach thelarge bowel, suggesting moderate to high-grade obstruction. Large bowel loops are mostly collapsed. IMPRESSION: 1. Diffuse small bowel dilatation, contrast does not reach the large bowel by 3 hours, suggesting moderate to high-grade obstruction. Ordered By: LIAN SAUER Interpreted By: Archie Clayton, 05/23/2024 2:02 PM XR CHEST PORTABLE Result Date: 05/23/2024 EXAMINATION: XR Portable CXR, 1 View INDICATION: Confirmation of Gastric Tube Placement. COMPARISON: CTA chest, abdomen and pelvis with contrast 05/21/2024. Portable AP chest x-ray 05/24/2018. FINDINGS:There is an enteric tube with sidehole in the fundus of the stomach and tip in the region of the distal fundus or proximal body of stomach. 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 Mild calcifications in the aortic arch. The cardiomediastinal silhouette is otherwise within normal limits. Pulmonary vascularity is normal. Small right pleural effusion is better seen on the comparison CT abdomen and pelvis exam of same date. There is mild prominence of interstitial markings in the lowerlobes, right more than left. No significant left pleural effusion. Upper lobes remain clear. No acute osseous abnormality. IMPRESSION: 1. Placement of enteric tube with tip in the distal fundus or proximal body of stomach.2. Small right pleural effusion, better seen on comparison CT abdomen and pelvis exam of same date.3. Mild prominence of interstitial markings in the lower lobes, right more than left, mild interstit ial pulmonary edema versus atypical pneumonia. Referred By: Interpreted By: Doris Leon MD, 05/23/2024 4:[address] ABD+PEL W IV CON ONLY Result Date: 05/23/2024 CT of the abdomen and pelvis with contrast INDICATION: Diffuse abdominal pain. Comparison is 05/21/2024. TECHNIQUE: Axial, coronal and sagittal images from the lung bases through the pubic symphysis with intravenous contrast. Radiation dose reduction technique(s) were used. FINDINGS: There is a smallright pleural effusion, new from the previous study. No basal infiltrates. Left lower lobe granuloma noted. Cholecystectomy is noted. The liver, spleen, pancreas, adrenals and kidneys appear normal. There is a very small amount of ascites. No upper abdominal or periaortic adenopathy. Scans of the pelvis show no mass, lymphadenopathy or free fluid. No bladder wall thickening or bladder calculus. The stomach is unremarkable. There are numerous distended fluid-filled small bowel loops up to 3.3 cmin diameter. The distal ileum is collapsed. Findings indicate a mid to distal small bowel obstruction, likely due to an adhesion. There is mild mesenteric edema. The appendix is normal. The colon is u nremarkable. No free peritoneal air. No hernias are identified. Degenerative changes noted at the lumbosacral disc. No acute bony abnormality. IMPRESSION: Mid to distal small bowel obstruction, likely due to an adhesion. Mild associated ascites. Small right pleural effusion. Referred By: Interpreted By: Toney Blackmon MD, 05/23/2024 2:54 AM ECG 12 lead Result Date: 05/22/2024 [facility] Test Date: 2024-05-22 Pat Name: [facility] Department: 85 Room: EXAM 505 Gender: Female Psychology Tech: : 1965 Requested By: NIMISHA RUANO Order Number: [id number] Reading MD: Guanako Hancock Measurements Intervals [place] Rate: 73 P: 82 [place]: 168 QRS: 58 QRSD: 89 T: 48 QT: 381 QTc: 422 Interpretive Statements SINUS RHYTHM Compared to ECG 09/01/2023 11:48:43 No significant changes CTA CHEST+ABD+PEL Result Date: 05/21/2024 Examination: CTA CHEST+ABD+PEL Exam time: 05/21/2024 4:48 PM INDICATION: Severe mid to left abdominalpain for one day. TECHNIQUE: After administration of 75 mL Isovue-370 IV contrast via the right arm, arterial phase multidetector CT images were obtained through the chest, abdomen, and pelvis. Multiplanar and MIP images were created and reviewed. In addition, 3D image processing was performed on a separate workstation by a technologist, with images sent to PACS for review. A dose lowering technique was used for this procedure, which may include, but is not limited to, dose reduction techniques, automated exposure control, the use of a iterative reconstruction, and ALARA (as low as reasonablyachievable)/image gently techniques. COMPARISON: None FINDINGS: CHEST: There is no evidence for thoracic aortic aneurysm or dissection. The origins of the great vessels are patent. There is no pulmonary embolism noted. There is evidence for previous granulomatous disease. Mild linear scarring or subsegmental atelectasis is noted in the left lower lobe. No airspace consolidation, pleural effusion,or pneumothorax. The central airways are patent. There is no lymphadenopathy. No pericardial effusion. No acute osseous abnormality. Abdomen/pelvis: There is no evidence for abdominal aortic aneurysmor dissection. The common and external iliac arteries are normal in caliber. The mesenteric vesselsare patent. There are patent single renal arteries. The liver and spleen are normal in size and contour. Cholecystectomy. The pancreas is unremarkable. No adrenal mass. No hydronephrosis. There is symmetric renal enhancement. There is no ureteral calculus. There is no calculus in the urinary bladder. There is no evidence for appendicitis. There is moderate mesenteric edema/stranding in the left mid and lower abdomen. There is no bowel obstruction or free intraperitoneal air. Evaluation for bowel wall thickening is essentially precluded due to the phase of enhancement. There is a 1.6 cm oval fat density lesion in a mid to distal jejunal bowel loop, evidence for a lipoma. There is no lymphadenopathy noted. There is no drainable fluid collection or abscess. No acute osseous abnormality. IMPRESSION: 1. There is moderate mesenteric edema/stranding in the left mid and lower abdomen, nonspecific but presumably related to enteritis. There is no evidence for a bowel obstruction. There is no drainable fluid collection or abscess noted. 2. There are no acute findings noted in the chest. Referred By: Interpreted By: Garcia Cosby MD, 05/21/2024 5:17 PM EKG: No results found for this visit on 05/23/24. Assessment & Plan SBO Ms. Pascual transferred from [facility] after 3 consecutive ER visits for worsening abd pain. CT A/P (05/23): mid to distal small bowel obstruction NG placed in ER at [facility] NPO/IVF Pain Control - monitor for toxicity Anti-emetics Surgery Consulted 05/23 SB X-ray: Diffuse small bowel dilatation, contrast does not reach the large bowel by 3 hours, suggesting moderate to high-grade obstruction S/p exploratory laparotomy and lysis of adhesions 05/23/24 Post op per surgery NG tube in place Up in chair, ambulate Await return of bowel function GERD/IBS Complaints of belching, indigestion IV PPI RA Maintained on Methotrexate Follows with [facility] Depression/Anxiety Restart home meds once taking po SDOH Reviewed, none as of 05/23 DVT Prophylaxis: Heparin SQ Code status: Full Code SONYA CANTRELL DO 05/24/2024 7:17 AM * Dunia Souza RN - 05/23/2024 11:19 PM CDT Problem: Discharge Planning Goal: Knowledge of discharge instructions Outcome: Progressing Problem: Pain control/comfort Goal: Promote pain control/comfort Outcome: Progressing Problem: Skin integrity, Impaired-wound Goal: Absence of new skin breakdown Outcome: Progressing Problem: Moisture associated skin impairment Goal: Reduce moisture exposure Outcome: Progressing Goal: Evidence of wound healing Outcome: Progressing * Lian Saure MD - 05/23/2024 1:49 PM CDT Patient undergoing completion of the small bowel follow-through. She has had increased nausea with emesis. Patient examined at bedside. She does admit to increased abdominal discomfort. The final static images of the small bowel follow-through was reviewed and contrast appears to be predominantly within the small bowel. Recommendation for exploratory laparotomy was made to most expeditiously remedy the obstructive process.. I offered to answer any further questions they may have. They have no further questions. documented in this encounter H&P Notes * Hilaria Fallon PA-C - 05/23/2024 7:57 AM CDT Hospitalist History and Physical Patient: Hans Pascual Date: 05/23/2024 female, 59-year-old Admit Date: 05/23/2024 Attending: Sonya Cantrell DO CHIEF COMPLAINT: Abdominal Pain HISTORY OF PRESENT ILLNESS: Hans Pascual is a 59-year-old female with a past medical history significant for GERD, IBS, rheumatoid arthritis, and depression/anxiety who presented to [facility] in [place] emergency room with ongoing abdominal pain, nausea, and vomiting. Patient initially went to the ER on 05/[address] imaging at that time revealed enteritis and patient was sent home on painmedication and antibiotics. Patient states early Wednesday morning, she started with intractable nausea and vomiting with worsening abdominal pain. Patient return to the emergency room yesterday morningand was given antiemetic emetics and discharged home. Patient states then last evening, she startedwith worsening pain, nausea, and vomiting again. Repeat imaging in the emergency room revealed a developed small bowel obstruction. Patient was subsequently transferred to our facility for further management and treatment. Patient had an NG tube placed at [facility] ER and patient states she is feeling slightly improved. She still has abdominal pain, but more tolerable with medications. She denies any fever, chills, shortnessof breath, headache, or lower extremity edema. Patient's last bowel movement was 05/20/2024. Patient d enies any tobacco, alcohol, or drug use. History obtained via chart review, discussion with patient and spouse at bedside, and review of outside records from previous ER visits, rheumatology notes, and PCP notes. REVIEW OF SYSTEMS: A 14 point review of systems was taken and pertinent positives and negatives as per HPI. All othersnegative. ALLERGY Allergies Allergen Reactions Levofloxacin Nausea and Vomiting, Nausea Only, Hallucinations and Other (see comment) hallucinations Other reaction(s): Other hallucinations MEDICATIONS Medications Prior to Admission Medication Sig Dispense Refill ALPRAZolam (XANAX) 0.25 MG tablet Take 1 tablet (0.25 mg total) by mouth nightly as needed for Anxiety or Sleep. FOR ANXIETY 30 tablet 0 cefdinir (OMNICEF) 300 MG Cap capsule Take 1 capsule (300 mg total) by mouth 2 (two) times daily for 5 days. 10 capsule 0 clobetasol (TEMOVATE) 0.05 % ointment dicyclomine (BENTYL) 20 MG tablet Take 1 tablet (20 mg total) by mouth every 6 (six) hours as needed. 60 tablet 2 estradiol (ESTRACE) 0.1 MG/GM vaginal cream etanercept 50 MG/ML injection Inject 1 mL (50 mg total) into the skin weekly. fexofenadine (PIYUSH) 180 MG tablet Take 1 tablet (180 mg total) by mouth daily. methotrexate 2.5 MG tablet Take by mouth once a week. Take 6 tablets every 7 days. metroNIDAZOLE (FLAGYL) 500 MG tablet Take 1 tablet (500 mg total) by mouth 3 (three) times daily for 5 days. 15 tablet 0 montelukast (SINGULAIR) 10 MG tablet TAKE 1 TABLET (10 MG TOTAL) BY MOUTH DAILY. 90 tablet 3 ondansetron (ZOFRAN-ODT) 8 MG disintegrating tablet Take 1 tablet (8 mg total) by mouth every 8 (eight) hours as needed for Nausea. 20 tablet 0 oxyCODONE-acetaminophen (PERCOCET) 5-325 MG tablet Take 1 tablet by mouth every 4 (four) hours as needed for Pain. Indications: Acute Pain < 3 Day Supply 12 tablet 0 pantoprazole (PROTONIX) 40 MG packet Take 1 packet by mouth daily. 30 tablet 0 traZODone (DESYREL) 100 MG tablet Take 1.5 tablets (150 mg total) by mouth nightly at bedtime. 135 tablet 3 valACYclovir 1 g tablet as needed. No current facility-administered medications on file prior to encounter. Current Outpatient Medications on File Prior to Encounter Medication Sig Dispense Refill ALPRAZolam (XANAX) 0.25 MG tablet Take 1 tablet (0.25 mg total) by mouth nightly as needed for Anxiety or Sleep. FOR ANXIETY 30 tablet 0 cefdinir (OMNICEF) 300 MG Cap capsule Take 1 capsule (300 mg total) by mouth 2 (two) times daily for 5 days. 10 capsule 0 clobetasol (TEMOVATE) 0.05 % ointment dicyclomine (BENTYL) 20 MG tablet Take 1 tablet (20 mg total) by mouth every 6 (six) hours as needed. 60 tablet 2 estradiol (ESTRACE) 0.1 MG/GM vaginal cream etanercept 50 MG/ML injection Inject 1 mL (50 mg total) into the skin weekly. fexofenadine (PIYUSH) 180 MG tablet Take 1 tablet (180 mg total) by mouth daily. methotrexate 2.5 MG tablet Take by mouth once a week. Take 6 tablets every 7 days. metroNIDAZOLE (FLAGYL) 500 MG tablet Take 1 tablet (500 mg total) by mouth 3 (three) times daily for 5 days. 15 tablet 0 montelukast (SINGULAIR) 10 MG tablet TAKE 1 TABLET (10 MG TOTAL) BY MOUTH DAILY. 90 tablet 3 ondansetron (ZOFRAN-ODT) 8 MG disintegrating tablet Take 1 tablet (8 mg total) by mouth every 8 (eight) hours as needed for Nausea. 20 tablet 0 oxyCODONE-acetaminophen (PERCOCET) 5-325 MG tablet Take 1 tablet by mouth every 4 (four) hours as needed for Pain. Indications: Acute Pain < 3 Day Supply 12 tablet 0 pantoprazole (PROTONIX) 40 MG packet Take 1 packet by mouth daily. 30 tablet 0 traZODone (DESYREL) 100 MG tablet Take 1.5 tablets (150 mg total) by mouth nightly at bedtime. 135 tablet 3 valACYclovir 1 g tablet as needed. PAST MEDICAL HISTORY Past Medical History: Diagnosis Date Anxiety Cataract surgery 2020 COVID-19 GERD (gastroesophageal reflux disease) Heart murmur IBS (irritable bowel syndrome) Inflammatory arthritis Plantar fasciitis RA (rheumatoid arthritis) ([facility]/HCC HHS/HCC) Past Surgical History: Procedure Laterality Date CHOLECYSTECTOMY COLONOSCOPY N/A 03/17/2021 COLONOSCOPY-NORMAL performed by Niall Matute MD at [facility] GI COLONOSCOPY STOMA DX INCLUDING COLLJ SPEC SPX AH 9 yrs. 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 FAMILY HISTORY Family History Problem Relation Name Age of Onset COPD Mother Shirley Other (mva) Father PHYSICAL EXAMINATION: Vital 24 Hour Range Most Recent Value Temperature Temp Min: 97.9 ??F (36.6 ??C) Max: 99.1 ??F (37.3 ??C) 98.1 ??F (36.7 ??C) Pulse Pulse Min: 72 Max: 79 74 Respiratory Resp Min: 8 Max: 23 18 Blood Pressure BP Min: 117/76 Max: 131/70 118/75 Pulse Oximetry SpO2 Min: 94 % Max: 100 % 96 % O2 No data recorded Vital Most Recent Value First Value Weight 82.6 kg (182 lb 1.6 oz) Weight: 82.6 kg (182 lb 1.6 oz) Height BMI (!) 27.69 N/A Intake/Output last 3 shifts: No intake/output data recorded. Physical Exam: -GENERAL: No acute distress, Well nourished, Well developed -HEAD: Normocephalic, Atraumatic -EYES: PERRL, Extraocular movements intact -ENT: Neck supple, Mucous membranes moist, + NG -LUNGS: Effort normal, Clear to auscultation bilaterally, No wheezes, No crackles, No ronchi -CVS: Regular rate and rhythm, S1 and S2 normal -ABDOMEN: Soft, + generalized tenderness, Non distended, absent BS -EXT: No lower extremity edema -NEURO: Awake, alert, oriented x3, No gross neuro deficits -SKIN: No significant rashes or lesions LABS Recent Labs Lab 05/21/24 1529 05/22/24 0855 05/23/24 0110 NA 141 139 140 K 3.2* 4.1 3.6 CL 103 101 103 CO2 23.9 27.0 25.2 AGAP 14.1 11.0 11.8 BUN 16 18 19* CR 0.92 0.94 1.07* BUNCREATININ 17.4 19.1 17.8 GLU 92 137* 112* CA 10.0 10.4* 10.0 MAGNESIUM -- 1.9 -- Recent Labs Lab 05/21/24 1529 05/22/24 0855 05/23/24 0110 WBC 7.53 10.00 8.97 RBC 3.96* 4.11* 4.11* HGB 13.1 13.6 13.8 HCT 38.7 40.3 39.8 MCV 97.7* 98.1* 96.8* MCH 33.1* 33.1* 33.6* MCHC 33.9 33.7 34.7* PLT 245 221 245 RDW 14.6 14.6 14.7 MPV 11.2 10.2 10.4 Recent Labs Lab 05/21/24 1529 05/22/24 0855 05/23/24 0110 AST 20 22 21 ALT 29 29 24 IMAGING & OTHER STUDIES XR CHEST PORTABLE Result Date: 05/23/2024 EXAMINATION: XR Portable CXR, 1 View INDICATION: Confirmation of Gastric Tube Placement. COMPARISON: CTA chest, abdomen and pelvis with contrast 05/21/2024. Portable AP chest x-ray 05/24/2018. FINDINGS:There is an enteric tube with sidehole in the fundus of the stomach and tip in the region of the distal fundus or proximal body of stomach. 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 Mild calcifications in the aortic arch. The cardiomediastinal silhouette is otherwise within normal limits. Pulmonary vascularity is normal. Small right pleural effusion is better seen on the comparison CT abdomen and pelvis exam of same date. There is mild prominence of interstitial markings in the lowerlobes, right more than left. No significant left pleural effusion. Upper lobes remain clear. No acute osseous abnormality. IMPRESSION: 1. Placement of enteric tube with tip in the distal fundus or proximal body of stomach.2. Small right pleural effusion, better seen on comparison CT abdomen and pelvis exam of same date.3. Mild prominence of interstitial markings in the lower lobes, right more than left, mild interstit ial pulmonary edema versus atypical pneumonia. Referred By: Interpreted By: Doris Leon MD, 05/23/2024 4:[address] ABD+PEL W IV CON ONLY Result Date: 05/23/2024 CT of the abdomen and pelvis with contrast INDICATION: Diffuse abdominal pain. Comparison is 05/21/2024. TECHNIQUE: Axial, coronal and sagittal images from the lung bases through the pubic symphysis with intravenous contrast. Radiation dose reduction technique(s) were used. FINDINGS: There is a smallright pleural effusion, new from the previous study. No basal infiltrates. Left lower lobe granuloma noted. Cholecystectomy is noted. The liver, spleen, pancreas, adrenals and kidneys appear normal. There is a very small amount of ascites. No upper abdominal or periaortic adenopathy. Scans of the pelvis show no mass, lymphadenopathy or free fluid. No bladder wall thickening or bladder calculus. The stomach is unremarkable. There are numerous distended fluid-filled small bowel loops up to 3.3 cmin diameter. The distal ileum is collapsed. Findings indicate a mid to distal small bowel obstruction, likely due to an adhesion. There is mild mesenteric edema. The appendix is normal. The colon is u nremarkable. No free peritoneal air. No hernias are identified. Degenerative changes noted at the lumbosacral disc. No acute bony abnormality. IMPRESSION: Mid to distal small bowel obstruction, likely due to an adhesion. Mild associated ascites. Small right pleural effusion. Referred By: Interpreted By: Toney Blackmon MD, 05/23/2024 2:54 AM ASSESSMENT & PLAN SBO Ms. Pascual transferred from [facility] after 3 consecutive ER visits for worsening abd pain. CT A/P (05/23): mid to distal small bowel obstruction NG placed in ER at [facility] NPO/IVF Pain Control - monitor for toxicity Anti-emetics Surgery Consulted - appreciate recs -Plan for SB X-ray today Follow with surgery recs GERD/IBS Complaints of belching, indigestion IV PPI RA Maintained on Methotrexate Follows with [facility] Depression/Anxiety Restart home meds once taking po SDOH Reviewed, none as of 05/23 DVT Prophylaxis with Heparin SQ. Patient is a Full Code Inpatient Hilaria Fallon PA-C Cosigned by Sonya Cantrell DO at 05/23/2024 1:33 PM CDT Associated attestation - Sonya Cantrell DO - 05/23/2024 1:33 PM CDT I, Sonya Cantrell DO, participated in the care of this patient today and discussed the plan of care with advance provider, Hilaria Fallon, who shared in this visit. I have reviewed the RAMSES's documentation and agree with the findings except as I have documented. I personally spent a substantial amount of time on medical decision making and caring for this patient. Patient seen and examined. [employer] HAND/PA note reviewed. General: . Awake, alert, No acute distress CV: RRR, no murmur noted Pulmonary: Clear to auscultation. Nonlabored. No wheezing/rhonchi/crackles Abdomen: + mildly distended, diffusely tender to palpation Extremities: No significant edema Neuro: alert and oriented; Moves all extremities. No focal neurological deficits Agree with plan as outlined above. Transferred to [facility] for SBO. Surgery consulted, appreciate rec's.Continue NG tube to LIS. Small bowel follow through pending. Pain control, monitor for toxicity. SONYA CANTRELL DO documented in this encounter Consult Notes * Lian Sauer MD - 05/23/2024 10:41 AM CDTAssociated Order(s): IP CONSULT TO GENERAL SURGERY Date of Service: 05/23/2024 CHIEF COMPLAINT: sbo HPI: .Hans Pascual is a 59-year-old female who presents to the hospital as transfer from [facility] in [place] for evaluation of small bowel obstruction as noted on CT abdomen. Patient has had 3 ER evaluations, as initial CT suggested possible enteritis. She states her pain started Wednesday and worsened on Wednesday. She admits to nausea and emesis. Her last bowel movement was on Wednesday. She denies diarrhea melena or hematochezia. Her last colonoscopy was within the last 5 to [address] Matute. NG tube was placed at outside facility there is low output. At time of my evaluation she states improvement in pain now rated 4 out of 10. Patient is in no distress. Her is at bedside. Her past abdominal surgical history includes a laparoscopic cholecystectomy PMH: Past Medical History: Diagnosis Date Anxiety Cataract surgery 2020 COVID-19 GERD (gastroesophageal reflux disease) Heart murmur IBS (irritable bowel syndrome) Inflammatory arthritis Plantar fasciitis RA (rheumatoid arthritis) ([facility]/H[facility]) PSH: Past Surgical History: Procedure Laterality Date CHOLECYSTECTOMY COLONOSCOPY N/A 03/17/2021 COLONOSCOPY-NORMAL performed by Niall Matute MD at [facility] GI COLONOSCOPY STOMA DX INCLUDING COLLJ SPEC SPX AH 9 yrs. EXTRACT ERUPT TOOTH wisdom teeth removal EYE SURGERY 2020 cataract extraction FOOT SURGERY Right 09/10/2023 LAMINECTOMY,LUMBAR SEPTOPLASTY MEDS: Current: heparin (porcine) 5,000 Units Subcutaneous 2 times per day pantoprazole 40 mg Intravenous Daily Prior to Admission medications Medication Sig Start Date End Date Taking? Authorizing Provider ALPRAZolam (XANAX) 0.25 MG tablet Take 1 tablet (0.25 mg total) by mouth nightly as needed for Anxiety or Sleep. FOR ANXIETY 05/16/24 Yes Dayanara Plaza MD cefdinir (OMNICEF) 300 MG Cap capsule Take 1 capsule (300 mg total) by mouth 2 (two) times daily for 5 days. 05/21/24 05/26/24 Yes Sam Gage MD dicyclomine (BENTYL) 20 MG tablet Take 1 tablet (20 mg total) by mouth every 6 (six) hours as needed. 05/11/24 Yes Dayanara Plaza MD estradiol (ESTRACE) 0.1 MG/GM vaginal cream Place vaginally daily. 10/26/23 Yes Default History Genericprovider etanercept 50 MG/ML injection Inject 1 mL (50 mg total) into the skin weekly. 05/30/14 Yes Doc [facility] folic acid (FOLVITE) 1 MG tablet Take 1 tablet (1 mg total) by mouth daily. Yes Default History Genericprovider methotrexate 2.5 MG tablet Take by mouth once a week. Take 6 tablets every 7 days. 06/06/18 Yes Doc [facility] metroNIDAZOLE (FLAGYL) 500 MG tablet Take 1 tablet (500 mg total) by mouth 3 (three) times daily for 5 days. 05/21/24 05/26/24 Yes Sam Gage MD nabumetone (RELAFEN) 500 MG tablet Take 1 tablet (500 mg total) by mouth 2 (two) times daily as needed for Pain. Yes Default History Genericprovider ondansetron (ZOFRAN-ODT) 8 MG disintegrating tablet Take 1 tablet (8 mg total) by mouth every 8 (eight) hours as needed for Nausea. 05/22/24 Yes Nimisha Ruano MD oxyCODONE-acetaminophen (PERCOCET) 5-325 MG tablet Take 1 tablet by mouth every 4 (four) hours as needed for Pain. Indications: Acute Pain < 3 Day Supply 05/21/24 Yes Sam Gage MD pantoprazole (PROTONIX) 40 MG packet Take 1 packet by mouth daily. 05/22/24 Yes Nimisha Ruano MD traZODone (DESYREL) 100 MG tablet Take 1.5 tablets (150 mg total) by mouth nightly at bedtime. 05/11/24 Yes Dayanara Plaza MD valACYclovir 1 g tablet as needed. 10/10/19 Yes Doc [facility] fexofenadine (PIYUSH) 180 MG tablet Take 1 tablet (180 mg total) by mouth daily. Default History Genericprovider montelukast (SINGULAIR) 10 MG tablet TAKE 1 TABLET (10 MG TOTAL) BY MOUTH DAILY. 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 Family History Problem Relation Name Age of Onset COPD Mother Shirley Other (mva) Father REVIEW OF SYSTEMS: Review of Systems All other systems reviewed and are negative. PHYSICAL EXAM: Temp (24hrs), Av.5 ??F (36.9 ??C), Min:97.9 ??F (36.6 ??C), Max:99.1 ??F (37.3 ??C) Vitals: 05/23/24 0739 BP: 118/75 Pulse: 74 Resp: 18 Temp: 98.1 ??F (36.7 ??C) SpO2: 96% Body mass index is 27.69 kg/m??. Physical Exam Vitals reviewed. HENT: Head: Normocephalic. Eyes: Conjunctiva/sclera: Conjunctivae normal. Cardiovascular: Rate and Rhythm: Normal rate. Pulmonary: Effort: Pulmonary effort is normal. Abdominal: Palpations: Abdomen is soft. Tenderness: There is abdominal tenderness. There is no rebound. Hernia: No hernia is present. Musculoskeletal: Cervical back: Normal range of motion. Skin: General: Skin is warm. Neurological: Mental Status: She is alert and oriented to person, place, and time. LABS: Labs: Lab Results Component Value Date NA 140 05/23/2024 K 3.6 05/23/2024 CL 103 05/23/2024 CO2 25.2 05/23/2024 AGAP 11.8 05/23/2024 BUN 19 (H) 05/23/2024 CR 1.07 (H) 05/23/2024 CR 0.94 05/22/2024 CR 0.92 05/21/2024 GLU 112 (H) 05/23/2024 CA 10.0 05/23/2024 Lab Results Component Value Date WBC 8.97 05/23/2024 WBC 10.00 05/22/2024 WBC 7.53 05/21/2024 HGB 13.8 05/23/2024 HGB 13.6 05/22/2024 HGB 13.1 05/21/2024 PLT 245 05/23/2024 PLT 221 05/22/2024 PLT 245 05/21/2024 Lab Results Component Value Date ALT 24 05/23/2024 ALT 29 05/22/2024 ALT 29 05/21/2024 TBIL 0.8 05/23/2024 TBIL 0.6 05/22/2024 TBIL 0.5 05/21/2024 ALKP 103 05/23/2024 ALKP 117 05/22/2024 ALKP 117 05/21/2024 IMAGING: XR CHEST PORTABLE Result Date: 05/23/2024 EXAMINATION: XR Portable CXR, 1 View INDICATION: Confirmation of Gastric Tube Placement. COMPARISON: CTA chest, abdomen and pelvis with contrast 05/21/2024. Portable AP chest x-ray 05/24/2018. FINDINGS:There is an enteric tube with sidehole in the fundus of the stomach and tip in the region of the distal fundus or proximal body of stomach. 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 Mild calcifications in the aortic arch. The cardiomediastinal silhouette is otherwise within normal limits. Pulmonary vascularity is normal. Small right pleural effusion is better seen on the comparison CT abdomen and pelvis exam of same date. There is mild prominence of interstitial markings in the lowerlobes, right more than left. No significant left pleural effusion. Upper lobes remain clear. No acute osseous abnormality. IMPRESSION: 1. Placement of enteric tube with tip in the distal fundus or proximal body of stomach.2. Small right pleural effusion, better seen on comparison CT abdomen and pelvis exam of same date.3. Mild prominence of interstitial markings in the lower lobes, right more than left, mild interstit ial pulmonary edema versus atypical pneumonia. Referred By: Interpreted By: Doris Leon MD, 05/23/2024 4:[address] ABD+PEL W IV CON ONLY Result Date: 05/23/2024 CT of the abdomen and pelvis with contrast INDICATION: Diffuse abdominal pain. Comparison is 05/21/2024. TECHNIQUE: Axial, coronal and sagittal images from the lung bases through the pubic symphysis with intravenous contrast. Radiation dose reduction technique(s) were used. FINDINGS: There is a smallright pleural effusion, new from the previous study. No basal infiltrates. Left lower lobe granuloma noted. Cholecystectomy is noted. The liver, spleen, pancreas, adrenals and kidneys appear normal. There is a very small amount of ascites. No upper abdominal or periaortic adenopathy. Scans of the pelvis show no mass, lymphadenopathy or free fluid. No bladder wall thickening or bladder calculus. The stomach is unremarkable. There are numerous distended fluid-filled small bowel loops up to 3.3 cmin diameter. The distal ileum is collapsed. Findings indicate a mid to distal small bowel obstruction, likely due to an adhesion. There is mild mesenteric edema. The appendix is normal. The colon is u nremarkable. No free peritoneal air. No hernias are identified. Degenerative changes noted at the lumbosacral disc. No acute bony abnormality. IMPRESSION: Mid to distal small bowel obstruction, likely due to an adhesion. Mild associated ascites. Small right pleural effusion. Referred By: Interpreted By: Toney Blackmon MD, 05/23/2024 2:54 AM CTA CHEST+ABD+PEL Result Date: 05/21/2024 Examination: CTA CHEST+ABD+PEL Exam time: 05/21/2024 4:48 PM INDICATION: Severe mid to left abdominalpain for one day. TECHNIQUE: After administration of 75 mL Isovue-370 IV contrast via the right arm, arterial phase multidetector CT images were obtained through the chest, abdomen, and pelvis. Multiplanar and MIP images were created and reviewed. In addition, 3D image processing was performed on a separate workstation by a technologist, with images sent to PACS for review. A dose lowering technique was used for this procedure, which may include, but is not limited to, dose reduction techniques, automated exposure control, the use of a iterative reconstruction, and ALARA (as low as reasonablyachievable)/image gently techniques. COMPARISON: None FINDINGS: CHEST: There is no evidence for thoracic aortic aneurysm or dissection. The origins of the great vessels are patent. There is no pulmonary embolism noted. There is evidence for previous granulomatous disease. Mild linear scarring or subsegmental atelectasis is noted in the left lower lobe. No airspace consolidation, pleural effusion,or pneumothorax. The central airways are patent. There is no lymphadenopathy. No pericardial effusion. No acute osseous abnormality. Abdomen/pelvis: There is no evidence for abdominal aortic aneurysmor dissection. The common and external iliac arteries are normal in caliber. The mesenteric vesselsare patent. There are patent single renal arteries. The liver and spleen are normal in size and contour. Cholecystectomy. The pancreas is unremarkable. No adrenal mass. No hydronephrosis. There is symmetric renal enhancement. There is no ureteral calculus. There is no calculus in the urinary bladder. There is no evidence for appendicitis. There is moderate mesenteric edema/stranding in the left mid and lower abdomen. There is no bowel obstruction or free intraperitoneal air. Evaluation for bowel wall thickening is essentially precluded due to the phase of enhancement. There is a 1.6 cm oval fat density lesion in a mid to distal jejunal bowel loop, evidence for a lipoma. There is no lymphadenopathy noted. There is no drainable fluid collection or abscess. No acute osseous abnormality. IMPRESSION: 1. There is moderate mesenteric edema/stranding in the left mid and lower abdomen, nonspecific but presumably related to enteritis. There is no evidence for a bowel obstruction. There is no drainable fluid collection or abscess noted. 2. There are no acute findings noted in the chest. Referred By: Interpreted By: Garcia Cosby MD, 05/21/2024 5:17 PM IMPRESSION: Principal Problem: SBO (small bowel obstruction) (CMS/HCC HHS/HCC) SNOMED CT(R): SMALL BOWEL OBSTRUCTION CT abdomen pelvis with findings concerning for obstructive process. These findings were discussed with the patient Her abdominal examination is without peritonitis and there is no emergent indication for surgical exploration Recommend ongoing conservative measures with NG tube decompression Will obtain small bowel follow-through today to further delineate the grade of any associated obstructive Potential need for exploration via laparotomy versus laparoscopy traditionally or with robotic assistance was discussed with patient. The risk benefits, pros and cons of each method was discussed in great detail. Surgical findings may consist of adhesions and need for lyse adhesions and potential need for associated segmental small bowel resection if stricture, ischemia, serosal bowel injury associated with adhesive or obstructive process was discussed with patient. Inherent risks of GI surgeryincluding anastomotic leak, abdominal sepsis, need for reoperative intervention, wound complications, incisional pain, incisional hernia, recurrent obstructive process secondary to adhesions was discussed. Patient expressed understanding as to the logic for conservative measures early on. Clear indications for surgical intervention if worsening pain with clear radiographic evidence of nonresolving obstructive process or high- grade obstructive process was discussed. Patient expressed understanding of the above and willingness to proceed with conservative measures were possible. Ellis Sauer M.D. General Surgery 05/23/2024 documented in this encounter Nursing Notes * Dunia Souza RN - 05/29/2024 11:42 PM CDTSummary: nursing Patient walking the halls with family during shift change and states she has been walking numerous times during the day. * Edmar Brush RN - 05/28/2024 8:19 PM CDT Attempted to collect stool sample this evening to rule out C. Diff, however, the patient had formedstool this evening and test is contraindicated. * Mary Moreno RN - 05/28/2024 8:51 AM CDT Pt reports she has had loos liquid diarrha since last night garvey has loss of appetitie and feels like she is having a deep upper abdomina pain above her incision site. Pt reports loss of appetite compared to yesterday. She states just not feeling as great as she did yesterday. Providers notified per Dr. Sauer via telephone orders: place IV, NS@[address] abd/pelvis w/contrast. * Dunia Souza RN - 05/25/2024 10:31 PM CDTSummary: nursing Patient ambulating the halls 3x since 1899 * Iris Ellsworth RN - 05/25/2024 6:04 PM CDT Patient has tolerated walking 8 times on this shift in the halls. NGT was removed at 1430 and has had no nausea/vomiting/increased distension. Patient has tolerated CLD as well. No pain medication was required for this shift. Iris EISENBERG RN * Iris Ellsworth RN - 05/25/2024 2:39 PM CDT The patient has tolerated 4 walks so far this shift and was advanced to a CLD after having NGT clamped at 0915. The patient has since tolerated the diet and clamping. Dr. Sauer updated on the status of this patient and stated this RN could remove NGT. The patient tolerated removal of the tube. Patient eager to continue ambulating and getting stronger. Iris EISENBERG RN * Dunia Souza RN - 05/25/2024 6:24 AM CDTSummary: nursing Assisted patient to bathroom. Patient walking the halls with staff and up to the chair. Tolerated well * Dunia Souza RN - 05/25/2024 3:11 AM CDTSummary: nursing Assisted patient to bathroom. Patient walking the halls with staff and back to bed. Tolerated well. * Dunia Souza RN - 05/25/2024 12:20 AM CDTSummardonavon: nursing Assisted patient to bathroom and back to bed. Patient refusing at this time to walk hallway. Patient states she is feeling dizzy from morphine and wants to let morphine wear off some. * Iris Ellsworth RN - 05/24/2024 5:45 PM CDT Patient has been ambulated 3x from her room to the end of the hallway and has tolerated sitting on the edge of the bed throughout the day. The patient states most of her pain is incisional or from the NGT in her throat which has been controlled with PRN morphine and ice packs. The patient has voided without difficulty multiple times. The total NGT output for this shift is 200mL. She is eager to continue ambulating and doing what she needs to get better. This RN to continue care for the remainder of this shift. Iris EISENBERG RN * Dunia Souza RN - 05/24/2024 6:38 AM CDTSummary: nursing Patient ambulating in hallway and tolerated well. Patient ambulated back to the chair. * Dunia Souza RN - 05/24/2024 5:53 AM CDTSummary: nursing Patient ambulating to bathroom with staff. Tolerated well * Dunia Souza RN - 05/23/2024 10:11 PM CDTSummary: nursing Patient requesting to go back to bed at this time. Assisted patient back to bed. Call light within reach. * Dunia Souza RN - 05/23/2024 9:45 PM CDTSummary: nursing Assisted patient to bathroom. Urinated without difficulty. Assisted patient to chair. Call light within reach. * Cristina Hunt RN - 05/23/2024 3:20 PM CDT Updates to mike Cl: 15:20- Procedure start 15:45- Procedure closing documented in this encounter OR Notes * Op Note - Lian Sauer MD - 05/23/2024 4:18 PM CDT Procedure Note Hans Pascual 05/23/2024 Procedure: Procedure(s): LAPAROTOMY EXPLORATORY, LYSIS OF ADHESIONS - Wound Class: Clean Contaminated Pre-Op Diagnosis: small bowel obstruction Post-Op Diagnosis: High-grade small bowel obstruction secondary to omental adhesion Indications: Please refer to consult note; small bowel follow-through today confirms high-grade small bowel obstruction Findings: Patient was brought to the operating room and placed in a supine position. After adequategeneral anesthesia was obtained the patient's abdomen was prepped and draped in the routine sterilefashion. bilateral scds are in place for dvt prophylaxis. Preoperative dose of IV antibiotics was given to the patient prior to incision. A timeout was performed by the staff identifying the patient and nature of the procedure, with all in agreement we proceeded. A limited predominantly upper midline incision was carried out with a scalpel, and further dissection proceeded with cautery through the fascia. The peritoneal cavity was entered. There is minimal free fluid noted. There is no feculent, succus or purulent drainage concerning for perforation. Examination of the small bowel instantly confirmed an adhesive band consisting of the distal tip of omentum that was tethering midportion of the small bowel to the root of the mesentery creating a high-grade small bowel obstruction. There is noted hyperemia and inflammatory changes to the associated serosa and its mesentery. There is no gross ischemic changes. The adhesion was lysed with the LigaSure device. The involved small bowel was then able to be freely mobilized and inspected. There is no serosal injury or chronic stricturing or ischemic changes or evidence of perforation. With this now mobilized inspection of the remaining small bowel distal to this confirmed collapse small bowel without any inflammatory changes. This was followed to the terminal ileum. Proximal to the involved segment of small bowel which consisted of approximately 20 cm of hyperemic bowel and mesentery, followed the bowel to the ligament of Treitz which other than moderate distention revealed no inflammatory, ischemic or serosal injuries secondary tothe distention. Inspection once again at the involved segment of small bowel revealed no ischemic changes. The coloration appeared to be improved since the lyse adhesion. The small bowel was replaced back in the abdomen ensuring that the mesentery was not in a malrotated or with any torsion. All needle count and lap pad counts were relayed to me as correct. The fascia was then closed with a #1 PDS in a running manner x 2 and the skin was closed with augustine. Dressings were applied. Patient tolerated the procedure well without any immediate complications Following the procedure, intraoperative findings was discussed with the patient's family. I discussed the integrity of the involved small bowel and discussed that we will continue to follow this closely in the event that potential complications arise requiring resection of this involved bowel. Compl ications: None Anesthesia: General Surgeon: LIAN SAUER MD Estimated Blood Loss: minimal LIAN SAUER MD Date: 05/23/2024 Time: 4:20 PM documented in this encounter Plan of Treatment Upcoming Encounters Date Type Department Care Team (Late st Contact Info) Description 11/14/2024 8:00 AM ASSEMBLER TESTER Office Visit [facility] Multispecialty Care - [facility] [address] [facility], [address] [place] [address] Montserrat Oliver NP [address] [facility] [address] [place] [address] 12/06/2024 9:30 AM ASSEMBLER TESTER Appointment [facility] Open MRI [address] [place] [address] [place] [address] [place] [address] 03/02/2025 3:20 PM CDT Office Visit [facility] Family & Internal Medicine - [address] [phone] [place] [address] [place] [id number] documented as of this encounter Goals Goal Patient Goal Type Associated Problems Recent Progress Patient-Stated? Author Family - family caregiver with be involved in care transitions and discharge planning Lifestyle No Nessa Pan, ORDER PROCESSING CLERK documented as of this encounter Procedures Procedure Name Priority Date/Time Associated Diagnosis Comments BASIC METABOLIC PANEL Routine 05/30/2024 6:46 AM CDT CBC W/DIFF AUTOMATED Routine 05/30/2024 6:46 AM CDT BASIC METABOLIC PANEL Routine 05/29/2024 5:15 AM CDT CBC W/DIFF AUTOMATED Routine 05/29/2024 5:15 AM CDT MAGNESIUM Routine 05/29/2024 5:[address] ABD+PEL W CON STAT 05/28/2024 9:24 AM CDT BASIC METABOLIC PANEL Routine 05/28/2024 5:14 AM CDT CBC W/DIFF AUTOMATED Routine 05/28/2024 5:14 AM CDT BASIC METABOLIC PANEL Routine 05/27/2024 5:25 AM CDT CBC W/DIFF AUTOMATED Routine 05/27/2024 5:25 AM CDT BASIC METABOLIC PANEL Routine 05/26/2024 5:54 AM CDT CBC W/DIFF AUTOMATED Routine 05/26/2024 5:54 AM CDT MAGNESIUM Routine 05/26/2024 5:54 AM CDT BASIC METABOLIC PANEL Routine 05/25/2024 6:10 AM CDT CBC W/DIFF AUTOMATED Routine 05/25/2024 6:10 AM CDT BASIC METABOLIC PANEL Routine 05/24/2024 6:26 AM CDT CBC W/DIFF AUTOMATED Routine 05/24/2024 6:26 AM CDT MAGNESIUM Routine 05/24/2024 6:26 AM CDT EXPLORATORY OF ABDOMEN 05/23/2024 2:56 PM CDT small bowel obstruction XR SMALL BOWEL STAT 05/23/2024 2:06 PM CDT documented in this encounter Results * (ABNORMAL) CBC W/DIFF AUTOMATED (05/30/2024 6:46 AM CDT) [facility] WBC 4.04(L) 4.5 - 11.0 x10'3/uL 05/30/2024 7:21 AM CDT [facility] RBC 3.50(L) 4.20 - 5.40 x10'6/uL 05/30/2024 7:21 AM CDT [facility] HGB 11.2(L) 12.0 - 16.0 G/DL 05/30/2024 7:21 AM CDT [facility] HCT 34.7(L) 38.0 - 48.0 % 05/30/2024 7:21 AM CDT [facility] MCV 99.1(H) 81.0 - 99.0 FL 05/30/2024 7:21 AM CDT [facility] MCH 32.0(H) 27.0 - 31.0 PG 05/30/2024 7:21 AM CDT [facility] MCHC 32.3 32.0 - 36.0 G/DL 05/30/2024 7:21 AM CDT [facility] RDW 14.6(H) 11.5 - 14.5 % 05/30/2024 7:21 AM CDT [facility] PLT 255 130 - 400 x10'3/uL 05/30/2024 7:21 AM CDT [facility] MPV 10.7 9.3 - 12.2 FL 05/30/2024 7:21 AM CDT [facility] DIFFERENTIAL TYPE MANUAL DIFFERENTIAL 05/30/2024 7:30 AM CDT [facility] SEG NEUTROPHILS 65 % 7:30 AM CDT [facility] LYMPHOCYTES 23 % 05/30/2024 7:30 AM CDT [facility] MONOCYTES 9 % 05/30/2024 7:30 AM CDT [facility] EOSINOPHILS 3 % 05/30/2024 7:30 AM CDT [facility] ABS. NEUTROPHILS 2.63 1.80 - 7.70 x10'3/uL 05/30/2024 7:30 AM CDT [facility] ABS. LYMPHOCYTES 0.93(L) 1.00 - 4.80 x10'3/uL 05/30/2024 7:30 AM CDT [facility] ABS. MONOCYTES 0.36 0.24 - 0.86 x10'3/uL 05/30/2024 7:30 AM CDT [facility] ABS. EOSINOPHILS 0.12 0.04 - 0.36 x10'3/uL 05/30/2024 7:30 AM CDT [facility] RBC MORPHOLOGY RBC MORPHOLOGY APPEARS NORMAL. SLIDE REVIEWED. 05/30/2024 7:30 AM CDT [facility] PLT EST. ADEQUATE 05/30/2024 7:30 AM CDT [facility] 05/30/2024 6:46 AM CDT us Sonya Cantrell DO LABORATORY Final Res ult [facility] [address] [place] [address], * (ABNORMAL) BASIC METABOLIC PANEL (05/30/2024 6:46 AM CDT) GLUCOSE 95 70 - 99 MG/DL 05/30/2024 7:29 AM CDT [facility] BUN 3(L) 7 - 18 MG/DL 05/30/2024 7:29 AM CDT [facility] CREATININE S/P/B 0.57 0.55 - 1.02 MG/DL 05/30/2024 7:29 AM CDT [facility] SODIUM S/P/B 142 136 - 145 MMOL/L 05/30/2024 7:29 AM CDT [facility] POTASSIUM S/P/B 3.5 3.5 - 5.1 MMOL/L 05/30/2024 7:29 AM CDT [facility] CHLORIDE S/P/B 113(H) 100 - 108 MMOL/L 05/30/2024 7:29 AM CDT [facility] CO2 22.1 21 - 32 MMOL/L 05/30/2024 7:29 AM CDT [facility] CALCIUM S/P/B 9.2 8.5 - 10.1 MG/DL 05/30/2024 7:29 AM CDT [facility] ANION GAP 6.9 5 - 15 MMOL/L 05/30/2024 7:29 AM CDT [facility] BUN CREATININE RATIO 5.3(L) 6 - 26 05/30/2024 7:29 AM CDT [facility] GFR ESTIMATE >90 >90 ML/MIN/1.7 3 M2 05/30/2024 7:29 AM CDT [facility] Comment: NOTE: eGFR is not calculated for patients <18 years of age. This is an estimated GFR calculation using the new CKD EPI creatinine equation without race and so does not require a correction factor for race. This estimated GFR should not be used for calculating drug doses. 05/30/2024 6:46 AM CDT us Sonya Cantrell DO LABORATORY Final Res ult [facility] [address] [place] [address], [place] [phone] * MAGNESIUM (05/29/2024 5:15 AM CDT) Pathologist [facility] MAGNESIUM 2.0 1.8 - 2.4 MG/DL 05/29/2024 7:55 AM CDT [facility] 05/29/2024 5:15 AM CDT Sonya Cantrell DO LABORATORY Final Res ult [facility] [address] [place] [address], [place] [phone] * (ABNORMAL) CBC W/DIFF AUTOMATED (05/29/2024 5:15 AM CDT) [facility] WBC 4.41(L) 4.5 - 11.0 x10'3/uL 05/29/2024 5:42 AM CDT [facility] RBC 3.17(L) 4.20 - 5.40 x10'6/uL 05/29/2024 5:42 AM CDT [facility] HGB 10.3(L) 12.0 - 16.0 G/DL 05/29/2024 5:42 AM CDT [facility] HCT 30.6(L) 38.0 - 48.0 % 05/29/2024 5:42 AM CDT [facility] MCV 96.5 81.0 - 99.0 FL 05/29/2024 5:42 AM CDT [facility] MCH 32.5(H) 27.0 - 31.0 PG 05/29/2024 5:42 AM CDT [facility] MCHC 33.7 32.0 - 36.0 G/DL 05/29/2024 5:42 AM CDT [facility] RDW 14.2 11.5 - 14.5 % 05/29/2024 5:42 AM CDT [facility] PLT 208 130 - 400 x10'3/uL 05/29/2024 5:42 AM CDT [facility] MPV 10.3 9.3 - 12.2 FL 05/29/2024 5:42 AM CDT [facility] DIFFERENTIAL TYPE AUTOMATED DIFFERENTIAL 05/29/2024 5:42 AM CDT [facility] NEUTROPHILS % 59.2 % 05/29/2024 5:42 AM CDT [facility] LYMPHOCYTES % 24.7 % 05/29/2024 5:42 AM CDT [facility] MONOCYTES % 13.4 % 05/29/2024 5:42 AM CDT [facility] EOSINOPHILS 2.3 % 05/29/2024 5:42 AM CDT [facility] BASOPHILS 0.2 % 05/29/2024 5:42 AM CDT [facility] IMMATURE GRANS % 0.2 % 05/29/20 5:42 AM CDT [facility] ABS. NEUTROPHILS 2.61 1.80 - 7.70 x10'3/uL 05/29/2024 5:42 AM CDT [facility] ABS. LYMPHOCYTES 1.09 1.00 - 4.80 x10'3/uL 05/29/2024 5:42 AM CDT [facility] ABS. MONOCYTES 0.59 0.24 - 0.86 x10'3/uL 05/29/2024 5:42 AM CDT [facility] ABS. EOSINOPHILS 0.10 0.04 - 0.36 x10'3/uL 05/29/2024 5:42 AM CDT [facility] ABS. BASOPHILS 0.01 0.01 - 0.08 x10'3/uL 05/29/2024 5:42 AM CDT [facility] ABS. IMMATURE GRANULOCYTES 0.01 0.00 - 0.49 x10'3/uL 05/29/2024 5:42 AM CDT [facility] 05/29/2024 5:15 AM CDT us Sonya Cantrell DO LABORATORY Final Res ult [facility] [address] [place] [address], [place] [phone] * (ABNORMAL) BASIC METABOLIC PANEL (05/29/2024 5:15 AM CDT) GLUCOSE 80 70 - 99 MG/DL 05/29/2024 5:48 AM CDT [facility] BUN 4(L) 7 - 18 MG/DL 05/29/2024 5:48 AM CDT [facility] CREATININE S/P/B 0.49(L) 0.55 - 1.02 MG/DL 05/29/2024 5:48 AM CDT [facility] SODIUM S/P/B 142 136 - 145 MMOL/L 05/29/2024 5:48 AM CDT [facility] POTASSIUM S/P/B 3.2(L) 3.5 - 5.1 MMOL/L 05/29/2024 5:48 AM CDT [facility] CHLORIDE S/P/B 113(H) 100 - 108 MMOL/L 05/29/2024 5:48 AM CDT [facility] CO2 22.1 21 - 32 MMOL/L 05/29/2024 5:48 AM CDT [facility] CALCIUM S/P/B 8.4(L) 8.5 - 10.1 MG/DL 05/29/2024 5:48 AM CDT [facility] ANION GAP 6.9 5 - 15 MMOL/L 05/29/2024 5:48 AM CDT [facility] BUN CREATININE RATIO 8.2 6 - 26 05/29/2024 5:48 AM CDT [facility] GFR ESTIMATE >90 >90 ML/MIN/1.7 3 M2 05/29/2024 5:48 AM CDT [facility] Comment: NOTE: eGFR is not calculated for patients <18 years of age. This is an estimated GFR calculation using the new CKD EPI creatinine equation without race and so does not require a correction factor for race. This estimated GFR should not be used for calculating drug doses. 05/29/2024 5:15 AM CDT Sonya Cantrell DO LABORATORY Final Res ult [facility] [address] [place] [address], * CT ABD+PEL W CON (05/28/2024 9:24 AM CDT) Anatomical Region Laterality Modality Abdomen Computed Tomogra phy 05/28/2024 9:30 AM CDT Impressions 05/28/2024 9:32 AM CDT IMPRESSION: 1. Mild diffuse ileus 2. Mild right pleural effusion with concomitant atelectasis Ordered By: LIAN SAUER Interpreted By: Caleb Rodriguez MD, 05/28/2024 9:30 AM Narrative 05/28/2024 9:[address] ABDOMEN AND PELVIS WITH CONTRAST Exam date:05/28/2024 9:05 AM Clinical history: Abdomen pain. Technique: Dynamic helical images of the abdomen and pelvis were obtained. The patient received approximately 100 mL of Isovue 370 nonionic intravenous contrast through an IV in the right antecubital fossa. A dose lowering technique was used for this procedure, which may include, but is not limited to, dose reduction technique, automated exposure control, the use of iterative reconstruction, and ALARA (As Low As Reasonably Achievable) / Image Gently techniques. Comparison: None. FINDINGS: Images of the lower thorax demonstrate a mild right pleural effusion with concomitant atelectasis in the right lower lobe. The visualized portion of the heart appears normal. Images of the abdomen demonstrate the overall size and morphology of the liver to be within normal limits. No hepatic lesions are observed. No ascites is seen. The gallbladder is surgically absent. The pancreas, spleen, and adrenal glands appear grossly normal. The kidneys are normal in size bilaterally. There is normal symmetric enhancement after the administration of contrast. No stones or hydronephrosis is apparent. Both ureters follow normal expected course through the retroperitoneum. Images of the pelvis demonstrate the urinary bladder to appear normal. The uterus is atrophic but otherwise within normal limits. The stomach is within normal limits. The small bowel is fluid-filled but nondistended. There is no evidence of obstruction. Multiple air-fluid levels are noted throughout the small bowel and colon suggesting mild diffuse ileus. The terminal ileum and appendix appear normal. The colon appears grossly normal. No adenopathy or abnormal fluid collections are present Procedure Note Caleb Rodriguez MD - 05/28/2024 CT ABDOMEN AND PELVIS WITH CONTRAST Exam date:05/28/2024 9:05 AM Clinical history: Abdomen pain. Technique: Dynamic helical images of the abdomen and pelvis were obtained.The patient received approximately 100 mL of Isovue 370 nonionicintravenous contrast through an IV in the right antecubital fossa. A doselowering technique was used for this procedure, which may include, but isnot limited to, dose reduction technique, automated exposure control, theuse of iterative reconstruction, and ALARA (As Low As ReasonablyAchievable) / Image Gently techniques. Comparison: None. FINDINGS: Images of the lower thorax demonstrate a mild right pleural effusion withconcomitant atelectasis in the right lower lobe. The visualized portion ofthe heart appears normal. Images of the abdomen demonstrate the overall size and morphology of theliver to be within normal limits. No hepatic lesions are observed. Noascites is seen. The gallbladder is surgically absent. The pancreas,spleen, and adrenal glands appear grossly normal. The kidneys are normalin size bilaterally. There is normal symmetric enhancement after theadministration of contrast. No stones or hydronephrosis is apparent. Bothureters follow normal expected course through the retroperitoneum. Images of the pelvis demonstrate the urinary bladder to appear normal. Theuterus is atrophic but otherwise within normal limits. The stomach is within normal limits. The small bowel is fluid-filled butnondistended. There is no evidence of obstruction. Multiple air-fluidlevels are noted throughout the small bowel and colon suggesting milddiffuse ileus. The terminal ileum and appendix appear normal. The colonappears grossly normal. No adenopathy or abnormal fluid collections arepresent IMPRESSION: 1. Mild diffuse ileus 2. Mild right pleural effusion with concomitant atelectasis Ordered By: LIAN SAUER Interpreted By: Caleb Rodriguez MD, 05/28/2024 9:30 AM us Lian Sauer MD CT Final Resul t * (ABNORMAL) CBC W/DIFF AUTOMATED (05/28/2024 5:14 AM CDT) WBC 4.49(L) 4.5 - 11.0 x10'3/uL 05/28/2024 5:51 AM CDT [facility] RBC 3.50(L) 4.20 - 5.40 x10'6/uL 05/28/2024 5:51 AM CDT [facility] HGB 11.4(L) 12.0 - 16.0 G/DL 05/28/2024 5:51 AM CDT [facility] HCT 34.0(L) 38.0 - 48.0 % 05/28/2024 5:51 AM CDT [facility] MCV 97.1 81.0 - 99.0 FL 05/28/2024 5:51 AM CDT [facility] MCH 32.6(H) 27.0 - 31.0 PG 05/28/2024 5:51 AM CDT [facility] MCHC 33.5 32.0 - 36.0 G/DL 05/28/2024 5:51 AM CDT [facility] RDW 14.3 11.5 - 14.5 % 05/28/2024 5:51 AM CDT [facility] PLT 217 130 - 400 x10'3/uL 05/28/2024 5:51 AM CDT [facility] MPV 10.5 9.3 - 12.2 FL 05/28/2024 5:51 AM CDT [facility] DIFFERENTIAL TYPE AUTOMATED DIFFERENTIAL 05/28/2024 5:51 AM CDT [facility] NEUTROPHILS % 60.6 % 05/28/2024 5:51 AM CDT [facility] LYMPHOCYTES % 26.3 % 05/28/2024 5:51 AM CDT [facility] MONOCYTES % 10.7 % 05/28/2024 5:51 AM CDT [facility] EOSINOPHILS 2.0 % 05/28/2024 5:51 AM CDT [facility] BASOPHILS 0.2 % 05/28/2024 5:51 AM CDT [facility] IMMATURE GRANS % 0.2 % 05/28/20 5:51 AM CDT [facility] ABS. NEUTROPHILS 2.72 1.80 - 7.70 x10'3/uL 05/28/2024 5:51 AM CDT [facility] ABS. LYMPHOCYTES 1.18 1.00 - 4.80 x10'3/uL 05/28/2024 5:51 AM CDT [facility] ABS. MONOCYTES 0.48 0.24 - 0.86 x10'3/uL 05/28/2024 5:51 AM CDT [facility] ABS. EOSINOPHILS 0.09 0.04 - 0.36 x10'3/uL 05/28/2024 5:51 AM CDT [facility] ABS. BASOPHILS 0.01 0.01 - 0.08 x10'3/uL 05/28/2024 5:51 AM CDT [facility] ABS. IMMATURE GRANULOCYTES 0.01 0.00 - 0.49 x10'3/uL 05/28/2024 5:51 AM CDT [facility] 05/28/2024 5:14 AM CDT us Sonya Cantrell DO LABORATORY Final Res ult [facility] [address] [place] [id number], [place] [phone] * (ABNORMAL) BASIC METABOLIC PANEL (05/28/2024 5:14 AM CDT) GLUCOSE 85 70 - 99 MG/DL 05/28/2024 6:07 AM CDT [facility] BUN 5(L) 7 - 18 MG/DL 05/28/2024 6:07 AM CDT [facility] CREATININE S/P/B 0.61 0.55 - 1.02 MG/DL 05/28/2024 6:07 AM CDT [facility] SODIUM S/P/B 140 136 - 145 MMOL/L 05/28/2024 6:07 AM CDT [facility] POTASSIUM S/P/B 3.1(L) 3.5 - 5.1 MMOL/L 05/28/2024 6:07 AM CDT [facility] CHLORIDE S/P/B 109(H) 100 - 108 MMOL/L 05/28/2024 6:07 AM CDT [facility] CO2 26.1 21 - 32 MMOL/L 05/28/2024 6:07 AM CDT [facility] CALCIUM S/P/B 9.1 8.5 - 10.1 MG/DL 05/28/2024 6:07 AM CDT [facility] ANION GAP 4.9(L) 5 - 15 MMOL/L 05/28/2024 6:07 AM CDT [facility] BUN CREATININE RATIO 8.2 6 - 26 05/28/2024 6:07 AM CDT [facility] GFR ESTIMATE >90 >90 ML/MIN/1.7 3 M2 05/28/2024 6:07 AM CDT [facility] Comment: NOTE: eGFR is not calculated for patients <18 years of age. This is an estimated GFR calculation using the new CKD EPI creatinine equation without race and so does not require a correction factor for race. This estimated GFR should not be used for calculating drug doses. 05/28/2024 5:14 AM CDT us Sonya Cantrell DO LABORATORY Final Res ult [facility] [address] [place] [address], [place] [phone] * (ABNORMAL) CBC W/DIFF AUTOMATED (05/27/2024 5:25 AM CDT) WBC 4.54 4.5 - 11.0 x10'3/uL 05/27/2024 6:31 AM CDT [facility] RBC 3.32(L) 4.20 - 5.40 x10'6/uL 05/27/2024 6:31 AM CDT [facility] HGB 10.9(L) 12.0 - 16.0 G/DL 05/27/2024 6:31 AM CDT [facility] HCT 35.1(L) 38.0 - 48.0 % 05/27/2024 6:31 AM CDT [facility] MCV 105.7(H) 81.0 - 99.0 FL 05/27/2024 6:31 AM CDT [facility] MCH 32.8(H) 27.0 - 31.0 PG 05/27/2024 6:31 AM CDT [facility] MCHC 31.1(L) 32.0 - 36.0 G/DL 05/27/2024 6:31 AM CDT [facility] RDW 14.3 11.5 - 14.5 % 05/27/2024 6:31 AM CDT [facility] PLT 192 130 - 400 x10'3/uL 05/27/2024 6:31 AM CDT [facility] MPV 10.2 9.3 - 12.2 FL 05/27/2024 6:31 AM CDT [facility] DIFFERENTIAL TYPE AUTOMATED DIFFERENTIAL 05/27/2024 6:31 AM CDT [facility] NEUTROPHILS % 53.1 % 05/27/2024 6:31 AM CDT [facility] LYMPHOCYTES % 32.2 % 05/27/2024 6:31 AM CDT [facility] MONOCYTES % 11.2 % 05/27/2024 6:31 AM CDT [facility] EOSINOPHILS 2.9 % 05/27/2024 6:31 AM CDT [facility] BASOPHILS 0.4 % 05/27/2024 6:31 AM CDT [facility] IMMATURE GRANS % 0.2 % 05/27/20 6:31 AM CDT [facility] ABS. NEUTROPHILS 2.41 1.80 - 7.70 x10'3/uL 05/27/2024 6:31 AM CDT [facility] ABS. LYMPHOCYTES 1.46 1.00 - 4.80 x10'3/uL 05/27/2024 6:31 AM CDT [facility] ABS. MONOCYTES 0.51 0.24 - 0.86 x10'3/uL 05/27/2024 6:31 AM CDT [facility] ABS. EOSINOPHILS 0.13 0.04 - 0.36 x10'3/uL 05/27/2024 6:31 AM CDT [facility] ABS. BASOPHILS 0.02 0.01 - 0.08 x10'3/uL 05/27/2024 6:31 AM CDT [facility] ABS. IMMATURE GRANULOCYTES 0.01 0.00 - 0.49 x10'3/uL 05/27/2024 6:31 AM CDT [facility] RBC MORPHOLOGY SLIDE REVIEWED 2023 6:31 AM CDT [facility] MACRO 1+ 05/27/2024 6:31 AM CDT [facility] PLT EST. ADEQUATE 05/27/2024 6:31 AM CDT [facility] 05/27/2024 5:25 AM CDT Sonya Cantrell DO LABORATORY Final Res ult [facility] [address] [place] [address], [place] [phone] * (ABNORMAL) BASIC METABOLIC PANEL (05/27/2024 5:25 AM CDT) GLUCOSE 86 70 - 99 MG/DL 05/27/2024 6:10 AM CDT [facility] BUN 4(L) 7 - 18 MG/DL 05/27/2024 6:10 AM CDT [facility] CREATININE S/P/B 0.52(L) 0.55 - 1.02 MG/DL 05/27/2024 6:10 AM CDT [facility] SODIUM S/P/B 140 136 - 145 MMOL/L 05/27/2024 6:10 AM CDT [facility] POTASSIUM S/P/B 3.6 3.5 - 5.1 MMOL/L 05/27/2024 6:10 AM CDT [facility] CHLORIDE S/P/B 115(H) 100 - 108 MMOL/L 05/27/2024 6:10 AM CDT [facility] CO2 19.5(L) 21 - 32 MMOL/L 05/27/2024 6:10 AM CDT [facility] CALCIUM S/P/B 8.9 8.5 - 10.1 MG/DL 05/27/2024 6:10 AM CDT [facility] ANION GAP 5.5 5 - 15 MMOL/L 05/27/2024 6:10 AM CDT [facility] BUN CREATININE RATIO 7.6 6 - 26 05/27/2024 6:10 AM T [facility] GFR ESTIMATE >90 >90 ML/MIN/1.7 3 M2 05/27/2024 6:10 AM T [facility] Comment: NOTE: eGFR is not calculated for patients <18 years of age. This is an estimated GFR calculation using the new CKD EPI creatinine equation without race and so does not require a correction factor for race. This estimated GFR should not be used for calculating drug doses. 05/27/2024 5:25 AM CDT us Sonya Cantrell DO LABORATORY Final Res ult [facility] [address] [place] [address], [place] [phone] * MAGNESIUM (05/26/2024 5:54 AM CDT) [facility] MAGNESIUM 2.2 1.8 - 2.4 MG/DL 05/26/2024 7:36 AM CDT [facility] 05/26/2024 5:54 AM CDT Sonya Cantrell DO LABORATORY Final Res ult [facility] [address] [place] [id number], [place] [phone] * (ABNORMAL) BASIC METABOLIC PANEL (05/26/2024 5:54 AM CDT) [facility] GLUCOSE 91 70 - 99 MG/DL 05/26/2024 6:35 AM CDT [facility] BUN 6(L) 7 - 18 MG/DL 05/26/2024 6:35 AM CDT [facility] CREATININE S/P/B 0.62 0.55 - 1.02 MG/DL 05/26/2024 6:35 AM CDT [facility] SODIUM S/P/B 138 136 - 145 MMOL/L 05/26/2024 6:35 AM CDT [facility] POTASSIUM S/P/B 3.3(L) 3.5 - 5.1 MMOL/L 05/26/2024 6:35 AM CDT [facility] CHLORIDE S/P/B 110(H) 100 - 108 MMOL/L 05/26/2024 6:35 AM CDT [facility] CO2 21.2 21 - 32 MMOL/L 05/26/2024 6:35 AM CDT [facility] CALCIUM S/P/B 9.3 8.5 - 10.1 MG/DL 05/26/2024 6:35 AM CDT [facility] ANION GAP 6.8 5 - 15 MMOL/L 05/26/2024 6:35 AM CDT [facility] BUN CREATININE RATIO 9.7 6 - 26 05/26/2024 6:35 AM CDT [facility] GFR ESTIMATE >90 >90 ML/MIN/1.7 3 M2 05/26/2024 6:35 AM CDT [facility] Comment: NOTE: eGFR is not calculated for patients <18 years of age. This is an estimated GFR calculation using the new CKD EPI creatinine equation without race and so does not require a correction factor for race. This estimated GFR should not be used for calculating drug doses. 05/26/2024 5:54 AM CDT Sonya Cantrell DO LABORATORY Final Res ult [facility] [address] [place] [address], * (ABNORMAL) CBC W/DIFF AUTOMATED (05/26/2024 5:54 AM CDT) WBC 6.56 4.5 - 11.0 x10'3/uL 05/26/2024 6:21 AM CDT [facility] RBC 3.45(L) 4.20 - 5.40 x10'6/uL 05/26/2024 6:21 AM CDT [facility] HGB 11.5(L) 12.0 - 16.0 G/DL 05/26/2024 6:21 AM CDT [facility] HCT 34.7(L) 38.0 - 48.0 % 05/26/2024 6:21 AM CDT [facility] MCV 100.6(H) 81.0 - 99.0 FL 05/26/2024 6:21 AM CDT [facility] MCH 33.3(H) 27.0 - 31.0 PG 05/26/2024 6:21 AM CDT [facility] MCHC 33.1 32.0 - 36.0 G/DL 05/26/2024 6:21 AM CDT [facility] RDW 14.3 11.5 - 14.5 % 05/26/2024 6:21 AM CDT [facility] PLT 195 130 - 400 x10'3/uL 05/26/2024 6:21 AM CDT [facility] MPV 10.6 9.3 - 12.2 FL 05/26/2024 6:21 AM CDT [facility] DIFFERENTIAL TYPE AUTOMATED DIFFERENTIAL 05/26/2024 6:21 AM CDT [facility] NEUTROPHILS % 61.4 % 05/26/2024 6:21 AM CDT [facility] LYMPHOCYTES % 25.5 % 05/26/2024 6:21 AM CDT [facility] MONOCYTES % 9.6 % 05/26/2024 6:21 AM CDT [facility] EOSINOPHILS 2.7 % 05/26/2024 6:21 AM CDT [facility] BASOPHILS 0.6 % 05/26/2024 6:21 AM CDT [facility] IMMATURE GRANS % 0.2 % 05/26/20 6:21 AM CDT [facility] ABS. NEUTROPHILS 4.03 1.80 - 7.70 x10'3/uL 05/26/2024 6:21 AM CDT [facility] ABS. LYMPHOCYTES 1.67 1.00 - 4.80 x10'3/uL 05/26/2024 6:21 AM CDT [facility] ABS. MONOCYTES 0.63 0.24 - 0.86 x10'3/uL 05/26/2024 6:21 AM CDT [facility] ABS. EOSINOPHILS 0.18 0.04 - 0.36 x10'3/uL 05/26/2024 6:21 AM CDT [facility] ABS. BASOPHILS 0.04 0.01 - 0.08 x10'3/uL 05/26/2024 6:21 AM CDT [facility] ABS. IMMATURE GRANULOCYTES 0.01 0.00 - 0.49 x10'3/uL 05/26/2024 6:21 AM CDT [facility] 05/26/2024 5:54 AM CDT Sonya Cantrell DO LABORATORY Final Res ult [facility] [address] [place] [id number], * (ABNORMAL) BASIC METABOLIC PANEL (05/25/2024 6:10 AM CDT) GLUCOSE 128(H) 70 - 99 MG/DL 05/25/2024 6:55 AM CDT [facility] BUN 14 7 - 18 MG/DL 05/25/2024 6:55 AM CDT [facility] CREATININE S/P/B 0.59 0.55 - 1.02 MG/DL 05/25/2024 6:55 AM CDT [facility] SODIUM S/P/B 140 136 - 145 MMOL/L 05/25/2024 6:55 AM CDT [facility] POTASSIUM S/P/B 3.3(L) 3.5 - 5.1 MMOL/L 05/25/2024 6:55 AM CDT [facility] CHLORIDE S/P/B 110(H) 100 - 108 MMOL/L 05/25/2024 6:55 AM CDT [facility] CO2 25.5 21 - 32 MMOL/L 05/25/2024 6:55 AM CDT [facility] CALCIUM S/P/B 8.9 8.5 - 10.1 MG/DL 05/25/2024 6:55 AM CDT [facility] ANION GAP 4.5(L) 5 - 15 MMOL/L 05/25/2024 6:55 AM CDT [facility] BUN CREATININE RATIO 23.6 6 - 26 05/25/2024 6:55 AM CDT [facility] GFR ESTIMATE >90 >90 ML/MIN/1.7 3 M2 05/25/2024 6:55 AM CDT [facility] Comment: NOTE: eGFR is not calculated for patients <18 years of age. This is an estimated GFR calculation using the new CKD EPI creatinine equation without race and so does not require a correction factor for race. This estimated GFR should not be used for calculating drug doses. 05/25/2024 6:10 AM CDT Sonya Cantrell DO LABORATORY Final Res ult [facility] [address] [place] [address], [place] [phone] * (ABNORMAL) CBC W/DIFF AUTOMATED (05/25/2024 6:10 AM CDT) WBC 8.51 4.5 - 11.0 x10'3/uL 05/25/2024 6:37 AM CDT [facility] RBC 3.45(L) 4.20 - 5.40 x10'6/uL 05/25/2024 6:37 AM CDT [facility] HGB 11.5(L) 12.0 - 16.0 G/DL 05/25/2024 6:37 AM CDT [facility] HCT 35.4(L) 38.0 - 48.0 % 05/25/2024 6:37 AM CDT [facility] MCV 102.6(H) 81.0 - 99.0 FL 05/25/2024 6:37 AM CDT [facility] MCH 33.3(H) 27.0 - 31.0 PG 05/25/2024 6:37 AM CDT [facility] MCHC 32.5 32.0 - 36.0 G/DL 05/25/2024 6:37 AM CDT [facility] RDW 15.0(H) 11.5 - 14.5 % 05/25/2024 6:37 AM CDT [facility] PLT 186 130 - 400 x10'3/uL 05/25/2024 6:37 AM CDT [facility] MPV 10.4 9.3 - 12.2 FL 05/25/2024 6:37 AM CDT [facility] DIFFERENTIAL TYPE AUTOMATED DIFFERENTIAL 05/25/2024 6:37 AM CDT [facility] NEUTROPHILS % 69.7 % 05/25/2024 6:37 AM CDT [facility] LYMPHOCYTES % 17.3 % 05/25/2024 6:37 AM CDT [facility] MONOCYTES % 10.9 % 05/25/2024 6:37 AM CDT [facility] EOSINOPHILS 1.5 % 05/25/2024 6:37 AM CDT [facility] BASOPHILS 0.2 % 05/25/2024 6:37 AM CDT [facility] IMMATURE GRANS % 0.4 % 05/25/20 6:37 AM CDT [facility] ABS. NEUTROPHILS 5.93 1.80 - 7.70 x10'3/uL 05/25/2024 6:37 AM CDT [facility] ABS. LYMPHOCYTES 1.47 1.00 - 4.80 x10'3/uL 05/25/2024 6:37 AM CDT [facility] ABS. MONOCYTES 0.93(H) 0.24 - 0.86 x10'3/uL 05/25/2024 6:37 AM CDT [facility] ABS. EOSINOPHILS 0.13 0.04 - 0.36 x10'3/uL 05/25/2024 6:37 AM CDT [facility] ABS. BASOPHILS 0.02 0.01 - 0.08 x10'3/uL 05/25/2024 6:37 AM CDT [facility] ABS. IMMATURE GRANULOCYTES 0.03 0.00 - 0.49 x10'3/uL 05/25/2024 6:37 AM CDT [facility] 05/25/2024 6:10 AM CDT Sonya Cantrell DO LABORATORY Final Res ult [facility] [address] [place] [address], * MAGNESIUM (05/24/2024 6:26 AM CDT) MAGNESIUM 2.1 1.8 - 2.4 MG/DL 05/24/2024 7:01 AM CDT [facility] 05/24/2024 6:26 AM CDT us Lian Sauer MD LABORATORY Final Resul t [facility] [address] [place] [address], * (ABNORMAL) BASIC METABOLIC PANEL (05/24/2024 6:26 AM CDT) [facility] GLUCOSE 96 70 - 99 MG/DL 05/24/2024 7:01 AM CDT [facility] BUN 26(H) 7 - 18 MG/DL 05/24/2024 7:01 AM CDT [facility] CREATININE S/P/B 0.62 0.55 - 1.02 MG/DL 05/24/2024 7:01 AM CDT [facility] SODIUM S/P/B 143 136 - 145 MMOL/L 05/24/2024 7:01 AM CDT [facility] POTASSIUM S/P/B 3.7 3.5 - 5.1 MMOL/L 05/24/2024 7:01 AM CDT [facility] CHLORIDE S/P/B 114(H) 100 - 108 MMOL/L 05/24/2024 7:01 AM CDT [facility] CO2 20.8(L) 21 - 32 MMOL/L 05/24/2024 7:01 AM T [facility] CALCIUM S/P/B 9.0 8.5 - 10.1 MG/DL 05/24/2024 7:01 AM CDT [facility] ANION GAP 8.2 5 - 15 MMOL/L 05/24/2024 7:01 AM CDT [facility] BUN CREATININE RATIO 41.7(H) 6 - 26 05/24/2024 7:01 AM T [facility] GFR ESTIMATE >90 >90 ML/MIN/1.7 3 M2 05/24/2024 7:01 AM CDT [facility] Comment: NOTE: eGFR is not calculated for patients <18 years of age. This is an estimated GFR calculation using the new CKD EPI creatinine equation without race and so does not require a correction factor for race. This estimated GFR should not be used for calculating drug doses. 05/24/2024 6:26 AM CDT Lian Sauer MD LABORATORY Final Resul t [facility] [address] [place] [address], * (ABNORMAL) CBC W/DIFF AUTOMATED (05/24/2024 6:26 AM CDT) WBC 10.43 4.5 - 11.0 x10'3/uL 05/24/2024 6:56 AM CDT [facility] RBC 3.74(L) 4.20 - 5.40 x10'6/uL 05/24/2024 6:56 AM CDT [facility] HGB 12.1 12.0 - 16.0 G/DL 05/24/2024 6:56 AM CDT [facility] HCT 37.5(L) 38.0 - 48.0 % 05/24/2024 6:56 AM CDT [facility] MCV 100.3(H) 81.0 - 99.0 FL 05/24/2024 6:56 AM CDT [facility] MCH 32.4(H) 27.0 - 31.0 PG 05/24/2024 6:56 AM CDT [facility] MCHC 32.3 32.0 - 36.0 G/DL 05/24/2024 6:56 AM CDT [facility] RDW 15.3(H) 11.5 - 14.5 % 05/24/2024 6:56 AM CDT [facility] PLT 217 130 - 400 x10'3/uL 05/24/2024 6:56 AM CDT [facility] MPV 10.4 9.3 - 12.2 FL 05/24/2024 6:56 AM CDT [facility] DIFFERENTIAL TYPE AUTOMATED DIFFERENTIAL 05/24/2024 6:56 AM CDT [facility] NEUTROPHILS % 73.1 % 05/24/2024 6:56 AM CDT [facility] LYMPHOCYTES % 15.7 % 05/24/2024 6:56 AM T [facility] MONOCYTES % 10.5 % 05/24/2024 6:56 AM T [facility] EOSINOPHILS 0.0 % 05/24/2024 6:56 AM CDT [facility] BASOPHILS 0.2 % 05/24/2024 6:56 AM CDT [facility] IMMATURE GRANS % 0.5 % 05/24/20 6:56 AM T [facility] ABS. NEUTROPHILS 7.62 1.80 - 7.70 x10'3/uL 05/24/2024 6:56 AM CDT [facility] ABS. LYMPHOCYTES 1.64 1.00 - 4.80 x10'3/uL 05/24/2024 6:56 AM CDT [facility] ABS. MONOCYTES 1.10(H) 0.24 - 0.86 x10'3/uL 05/24/2024 6:56 AM T [facility] ABS. EOSINOPHILS 0.00(L) 0.04 - 0.36 x10'3/uL 05/24/2024 6:56 AM CDT [facility] ABS. BASOPHILS 0.02 0.01 - 0.08 x10'3/uL 05/24/2024 6:56 AM CDT [facility] ABS. IMMATURE GRANULOCYTES 0.05 0.00 - 0.49 x10'3/uL 05/24/2024 6:56 AM CDT [facility] 05/24/2024 6:26 AM CDT Lian Sauer MD LABORATORY Final Resul t [facility] [address] [place] [address], [place] [phone] * XR SMALL BOWEL (05/23/2024 2:06 PM CDT) Anatomical Region Laterality Modality Abdomen, Pelvis Radiographic Corin ging 05/23/2024 2:02 PM CDT Impressions 05/23/2024 2:04 PM CDT IMPRESSION: 1. ?? Diffuse small bowel dilatation, contrast does not reach the large bowel by 3 hours, suggesting moderate to high-grade obstruction. Ordered By: LIAN SAUER Interpreted By: Archie Clayton, 05/23/2024 2:02 PM Narrative 05/23/2024 2:04 PM CDT EXAMINATION: SMALL BOWEL FOLLOW-THROUGH EXAM DATE: 05/23/2024 10:08 AM REASON FOR EXAM: ??Small bowel obstruction ?? COMPARISON: CT 05/23/2024 2:40 AM TECHNIQUE: Utilization Review Specialist image of the abdomen was obtained, oral contrast was administered by NG tube. Images of the abdomen were obtained 20, 40, 60, 90, 120, 180 minutes after administration. FINDINGS: Utilization Review Specialist image demonstrates moderate small bowel dilatation. NG tube is well- positioned within the stomach. At 20 and 40 and 60 minutes, contrast migrates within the small bowel and reaches the midportion small bowel, distal small bowel loops remain unopacified. Consistent with small bowel obstruction. By 3 hours, contrast did not reach the large bowel, suggesting moderate to high- grade obstruction. Large bowel loops are mostly collapsed. Procedure Note Archie Clayton MD - 05/23/2024 EXAMINATION: SMALL BOWEL FOLLOW-THROUGH EXAM DATE: 05/23/2024 10:08 AM REASON FOR EXAM: Small bowel obstruction COMPARISON: CT 05/23/2024 2:40 AM TECHNIQUE: Utilization Review Specialist image of the abdomen was obtained, oral contrast wasadministered by NG tube. Images of the abdomen were obtained 20, 40, 60,90, 120, 180 minutes after administration. FINDINGS: Utilization Review Specialist image demonstrates moderate small bowel dilatation. NG tube iswell- positioned within the stomach. At 20 and 40 and 60 minutes, contrast migrates within the small bowel andreaches the midportion small bowel, distal small bowel loops remainunopacified. Consistent with small bowel obstruction. By 3 hours, contrast did not reach the large bowel, suggesting moderate tohigh- grade obstruction. Large bowel loops are mostly collapsed. IMPRESSION: 1. Diffuse small bowel dilatation, contrast does not reach the largebowel by 3 hours, suggesting moderate to high-grade obstruction. Ordered By: LIAN SAUER Interpreted By: Archie Clayton, 05/23/2024 2:02 PM us Lian Sauer MD FLUOROSCOPY Final Resul t documented in this encounter Visit Diagnoses Diagnosis SBO (small bowel obstruction) (CMS/HCC HHS/HCC)- Primary Unspecified intestinal obstruction SBO (small bowel obstruction) (CMS/HCC HHS/HCC) Unspecified intestinal obstruction documented in this encounter Admitting Diagnoses Diagnosis SBO (small bowel obstruction) (CMS/HCC HHS/HCC) Unspecified intestinal obstruction documented in this encounter Administered Medications Inactive Administered Medications - up to 3 most recent administrations Medication Order MAR Action Action Date Dose Rate Site acetaminophen (TYLENOL) tablet 650 mg 650 mg, Oral, Every 4 hours PRN, Mild pain (Scale 1 - 3), Starting on Wed05/23/24 at 0756, Until Wed05/30/24 at 1223, Maximum dose of acetaminophen is 4000 mg from all sources in 24 hours. albuterol sulfate HFA 108 (90 Base) MCG/ACT inhaler 2 puff 2 puff, Inhalation, Every 6 hours PRN, Wheezing, Shortness of breath, Starting on Wed05/23/24 at 0757, Until Wed05/30/24 at 1223 bisacodyl (DULCOLAX) suppository 10 mg 10 mg, Rectal, Once, 1 dose, On Wed05/26/24 at 0915 Given 05/26/2024 10:00 AM CDT 10 mg dextrose 5 % lactated ringers infusion at 100 mL/hr, Intravenous, Continuous, Starting on Wed05/24/24 at 0745, Until Sandra 05/25/24 at 1250 New Bag 05/24/2024 8:00 AM CDT 100 mL/hr diatrizoate meglumine & sodium (GASTROGRAFIN) oral solution 240 mL 240 mL, Tube, IMG once as needed, Contrast, 1 dose, Starting on Wed05/23/24 at 1406, Until Wed05/23/24 at 1407 Given 05/23/2024 2:07 PM CDT 240 mLs fentaNYL (SUBLIMAZE) injection 25 mcg 25 mcg, Intravenous, Every 5 min PRN, Moderate pain (Scale 4 - 7), Moderate pain, 4 doses, Starting on Wed05/23/24 at 1547, Until Wed05/23/24 at 1654, Maximum cumulative dose 100 mcg. Do not administer if patient is overly sedated, SpO2 less than 90%, or Respiratory Rate less than 12. If more than one IV analgesic is ordered per pain level, use in this order: fentaNYL, morphine, HYDROmorphone. If desired pain control is not reached, move to next ordered medication at next dosing interval., PACU Given 05/23/2024 4:25 PM CDT 25 mcg Given During Downtime 05/23/2024 4:20 PM CDT 25 mcg heparin (porcine) injection 5,000 Units 5,000 Units, Subcutaneous, Every 12 hours scheduled (2 times per day), First dose on Wed05/23/24 at 2100, Until Discontinued Given 05/29/2024 8:05 PM CDT 5,000 Units Left Lower Abdomen Given 05/29/2024 7:49 AM CDT 5,000 Units R ight Upper Abdomen Given 05/28/2024 8:28 PM CDT 5,000 Units L eft Lower Abdomen HYDROcodone-acetaminophen (NORCO) 5-325 MG tablet 1 tablet 1 tablet, Oral, Every 6 hours PRN, Moderate pain (Scale 4 - 7), Starting on Wed05/23/24 at 0947, Until Wed05/30/24 at 1223, Maximum dose of acetaminophen is 4000 mg from all sources in 24 hours. Given 05/27/2024 8:23 PM CDT 1 tablet Given 05/27/2024 2:28 PM CDT 1 tablet Given 05/26/2024 8:56 PM CDT 1 tablet iopamidol (ISOVUE-370) 76 % injection 100 mL 100 mL, Intravenous, IMG once as needed, Contrast, 1 dose, Starting on Wed05/28/24 at 0924, Until Wed05/28/24 at 0925 Given 05/28/2024 9:25 AM CDT 100 mLs ketorolac (TORADOL) injection 15 mg 15 mg, Intravenous, Once as needed, Moderate pain (Scale 4 - 7), Breakthrough pain, 1 dose, Starting on Wed05/23/24 at 1547, Until Wed05/23/24 at 1630, Recommended dose for patients over 65 years of age, or CrCl less than 30 mL/min, or weight less than 50 kg. IF okay with surgeon and not given in OR. For IV administration, give over 15 seconds., PACU Given 05/23/2024 4:30 PM CDT 15 mg auaufopgn-dhciyawk-beblacnniqq (MYL[place] MAXIMUM STRENGTH) [id number] mg/30mL suspension 5 mL, Oral, Every 6 hours PRN, Heartburn, Starting on 05/27/24 at 1846, Until Wed05/30/24 at 1223, Shake Well Given 05/27/2024 8:22 PM CDT 5 mLs metoclopramide (REGLAN) injection 10 mg 10 mg, Intravenous, Once as needed, Vomiting, Nausea, 1 dose, Starting on Wed05/23/24 at 1331, Until Wed05/23/24 at 1334, Administer IV over 1-2 minutes Given 05/23/2024 1:34 PM CDT 10 mg morphine injection 1 mg 1 mg, Intravenous, Every 3 hours PRN, Moderate pain (Scale 4 - 7), Starting on Wed05/23/24 at 2030, Until Wed05/30/24 at 1223 Given 05/24/2024 9:34 AM CDT 1 mg Given 05/24/2024 6:32 AM CDT 1 mg Given 05/24/2024 2:03 AM CDT 1 mg morphine injection 2 mg 2 mg, Intravenous, Every 4 hours PRN, Severe pain (Scale 8 - 10), Starting on Wed05/23/24 at 0947, Until Wed05/23/24 at 1331 Given 05/23/2024 10:06 AM CDT 2 mg morphine injection 2 mg 2 mg, Intravenous, Every 3 hours PRN, Severe pain (Scale 8 - 10), Starting on Wed05/23/24 at 1331, Until Wed05/30/24 at 1223 Given 05/24/2024 7:26 PM CDT 2 mg Given 05/24/2024 3:55 PM CDT 2 mg Given 05/24/2024 1:06 PM CDT 2 mg ondansetron (ZOFRAN) injection 4 mg 4 mg, Intravenous, Every 8 hours PRN, Nausea, Vomiting, Starting on Wed05/23/24 at 0757, Until Wed05/30/24 at 1223, IV push over 2-5 minutes. Given 05/23/2024 11:54 AM CDT 4 mg ondansetron (ZOFRAN-ODT) disintegrating tablet 4 mg 4 mg, Oral, Every 4 hours PRN, Nausea, Vomiting, Starting on Wed05/27/24 at 2249, Until Wed05/30/24 at 1223 pantoprazole (PROTONIX) injection 40 mg 40 mg, Intravenous, Daily, First dose on Wed05/23/24 at 1015, Until Discontinued, Reconstitute each 40 mg vial with 10 mL normal saline to a final concentration of 4 mg/mL. Administer intravenously over a period of a least 2 minutes. Given 05/27/2024 9:03 AM CDT 40 mg Given 05/26/2024 8:22 AM CDT 40 mg Given 05/25/2024 8:15 AM CDT 40 mg pantoprazole EC (PROTONIX) tablet 40 mg 40 mg, Oral, Daily, First dose on Wed05/28/24 at 0900, Until Discontinued, Do not break, chew, or crush. Given 05/30/2024 8:11 AM CDT 40 mg Given 05/29/2024 7:48 AM CDT 40 mg Given 05/28/2024 8:38 AM CDT 40 mg phenol (CHLORASEPTIC) spray 1 spray 1 spray, Mouth/Throat, As needed, Pain, Starting on Wed05/24/24 at 0932, Until Wed05/30/24 at 1223 potassium chloride 40 mEq in sodium chloride 0.9 % 500 mL IV Infusion 40 mEq, Intravenous, Administer over 240 Minutes, Once, 1 dose, On Sandra 05/25/24 at 0745, MAX rate in peripheral line of 10 mEq per hour. New Bag 05/25/2024 8:15 AM CDT 40 mE q 125 mL/hr potassium chloride 40 mEq in sodium chloride 0.9 % 500 mL IV Infusion 40 mEq, Intravenous, Administer over 240 Minutes, Once, 1 dose, On Wed05/26/24 at 0730, MAX rate in peripheral line of 10 mEq per hour. New Bag 05/26/2024 8:22 AM CDT 40 mE q 125 mL/hr potassium chloride CR (K-TAB) tablet 40 mEq 40 mEq, Oral, Once, 1 dose, On Wed05/28/24 at 0815, Do not break, chew, or crush. Given 05/28/2024 8:38 AM CDT 40 mEq potassium chloride CR (K-TAB) tablet 40 mEq 40 mEq, Oral, Once, 1 dose, On Wed05/29/24 at 0745, Do not break, chew, or crush. Given 05/29/2024 7:48 AM CDT 40 mEq sodium chloride 0.9% infusion at 125 mL/hr, Intravenous, Continuous, Starting on Wed05/23/24 at 0815, Until Wed05/24/24 at 0717 New Bag 05/24/2024 2:02 AM CDT 125 mL/hr New Bag 05/23/2024 9:04 AM CDT 75 mL/hr sodium chloride 0.9% infusion at 100 mL/hr, Intravenous, Continuous, Starting on Wed05/28/24 at 0915, Until Wed05/29/24 at 1010 New Bag 05/29/2024 7:47 AM CDT 100 mL/hr New Bag 05/28/2024 8:29 PM CDT 100 mL/hr New Bag 05/28/2024 10:35 AM CDT 100 mL/hr valACYclovir (VALTREX) tablet 2,000 mg 2,000 mg, Oral, Every 12 hours scheduled (2 times per day), 2 doses, First dose on Wed05/29/24 at 1030, Last dose on Wed05/29/24 at 2100 Given 05/29/2024 8:05 PM CDT 2,000 mg Given 05/29/2024 10:26 AM CDT 2,000 mg documented in this encounter Active and Recently Administered Medications Times are shown in CDT. Scheduled Medication Order 05/28/2024 05/29/2024 05/30/2024 heparin (porcine) injection 5,000 Units(Linked Group 1) 5,000 Units, Subcutaneous, Every 12 hours scheduled (2 times per day), First dose on Wed05/23/24 at 2100, Until Discontinued 0838 (Given - Provider: Mary Moreno RN)2027 (Given - Provider: Edmar Brush RN) 0749 (Given - Provider: Lakesha Beebe RN)2004 (Given - Provider: Dunia Souza RN) 0815 (Not Given - Provider: Hilaria Chapa RN - Reason: Patient/family declined) pantoprazole EC (PROTONIX) tablet 40 mg 40 mg, Oral, Daily, First dose on Wed05/28/24 at 0900, Until Discontinued, Do not break, chew, or crush. 0838 (Given - Provider: Mary Moreno RN) 0748 (Given - Provider: Lakesha Beebe RN) 0811 (Given - Provider: Hilaria Chapa, JOSSUE) potassium chloride CR (K-TAB) tablet 40 mEq (COMPLETED) 40 mEq, Oral, Once, 1 dose, On Wed05/28/24 at 0815, Do not break, chew, or crush. 0838 (Given - Provider: Mary Moreno RN) potassium chloride CR (K-TAB) tablet 40 mEq (COMPLETED) 40 mEq, Oral, Once, 1 dose, On Wed05/29/24 at 0745, Do not break, chew, or crush. 0748 (Given - Provider: Lakesha Beebe, JOSSUE) valACYclovir (VALTREX) tablet 2,000 mg (COMPLETED) 2,000 mg, Oral, Every 12 hours scheduled (2 times per day), 2 doses, First dose on Wed05/29/24 at 1030, Last dose on Wed05/29/24 at 2100 1026 (Given - Provider: Lakesha Beebe, RN)2004 (Given - Provider: Dunia Souza RN) Continuous Medication Order 05/28/2024 05/29/2024 05/30/2024 sodium chloride 0.9% infusion (CANCELED) at 100 mL/hr, Intravenous, Continuous, Starting on Wed05/28/24 at 0915, Until Wed05/29/24 at 1010 1035 (New Bag - Provider: Mary Moreno RN)2027 (Infusion Stop Time - Provider: Edmar Brush, RN)2028 (New Bag - Provider: Edmar Brush, RN) 0747 (New Bag - Provider: Lakesha Beebe RN)102 (Infusion Stop Time - Provider: Lakesha Beebe RN) PRN Medication Order 05/28/2024 05/29/2024 05/30/2024 acetaminophen (TYLENOL) tablet 650 mg 650 mg, Oral, Every 4 hours PRN, Mild pain (Scale 1 - 3), Starting on Wed05/23/24 at 0756, Until Wed05/30/24 at 1223, Maximum dose of acetaminophen is 4000 mg from all sources in 24 hours. albuterol sulfate HFA 108 (90 Base) MCG/ACT inhaler 2 puff 2 puff, Inhalation, Every 6 hours PRN, Wheezing, Shortness of breath, Starting on Wed05/23/24 at 0757, Until Wed05/30/24 at 1223 HYDROcodone-acetaminophen (NORCO) 5-325 MG tablet 1 tablet 1 tablet, Oral, Every 6 hours PRN, Moderate pain (Scale 4 - 7), Starting on Wed05/23/24 at 0947, Until Wed05/30/24 at 1223, Maximum dose of acetaminophen is 4000 mg from all sources in 24 hours. iopamidol (ISOVUE-370) 76 % injection 100 mL (COMPLETED) 100 mL, Intravenous, IMG once as needed, Contrast, 1 dose, Starting on Wed05/28/24 at 0924, Until Wed05/28/24 at 0925 0925 (Given - Provider: Rivera Brown, RTR) mwmjrntns-gwtnkzbw-tnzqbjysezt ([place] MAXIMUM STRENGTH) [id number] mg/30mL suspension 5 mL, Oral, Every 6 hours PRN, Heartburn, Starting on Wed05/27/24 at 1846, Until Wed05/30/24 at 1223, Shake Well morphine injection 1 mg 1 mg, Intravenous, Every 3 hours PRN, Moderate pain (Scale 4 - 7), Starting on Wed05/23/24 at 2030, Until Wed05/30/24 at 1223 morphine injection 2 mg 2 mg, Intravenous, Every 3 hours PRN, Severe pain (Scale 8 - 10), Starting on Wed05/23/24 at 1331, Until Wed05/30/24 at 1223 ondansetron (ZOFRAN) injection 4 mg 4 mg, Intravenous, Every 8 hours PRN, Nausea, Vomiting, Starting on Wed05/23/24 at 0757, Until Wed05/30/24 at 1223, IV push over 2-5 minutes. ondansetron (ZOFRAN-ODT) disintegrating tablet 4 mg 4 mg, Oral, Every 4 hours PRN, Nausea, Vomiting, Starting on Wed05/27/24 at 2249, Until Wed05/30/24 at 1223 phenol (CHLORASEPTIC) spray 1 spray 1 spray, Mouth/Throat, As needed, Pain, Starting on Wed05/24/24 at 0932, Until Wed05/30/24 at 1223 Linked Groups Order Group 1: heparin (porcine) injection 5,000 UnitsJump to med 5,000 Units, Subcutaneous, Every 12 hours scheduled (2 times per day), First dose on Wed05/23/24 at 2100, Until Discontinued And Moderate Risk for VTE (COMPLETED) documented in this encounter Additional Health Concerns Assessment Noted Time PHQ-9 Depression Total Score: 0 04/03/20 10:56 AM CDT documented as of this encounter Care Teams Tank Wagon Operator Relationship Specialty [place] [address] [facility] [address] [place] [address] PCP - General FAMILY PRACTICE 03/01/23 Perez Cervantes MD [address] [place] [address] RHEUMATOLOGY 09/02/23 Adriana Ma MD [address] [place] [address] Referring Physician ALLERGY 09/02/23 documented as of this encounter
--- OUTSIDE RECORDS SUMMARY | 2024-11-13 17:10 | XMS_ITS | Encounter Summary ---
Author Organization [facility] Address [address] [place] [address]. [place] [address] [place] [address] Care Team Providers Care Area Director Of Home Health Sales Name Role Phone Dayanara Plaza MD Primary Care Provider [phone] Perez Cervantes MD Unavailable Adriana Ma MD Unavailable [phone] Encounter Details Date Type Department Care Team (Latest Contact Info) Description 06/02/2024 3:54 PM CDT - 06/02/2024 5:14 PM CDT Hospital Encounter [facility] [address] [place] [address] [place] [address] [address] [place] [address] Discharge Disposition: Home or Self Care (Routine [...] doctor or pharmacy? Never 05/23/2024 [facility] Utilities Answer Date Recorded In the past 12 months has th e electric, gas, oil, or water [employer] threatened to shut off services in your [...] Recorded Patient Health Questionnaire-2 Score 0 04/03/2024 [facility] - Occupational [...] time in the past 12 m [facility], were you homeless or living in a senior living (including now)? No 05/23/2024 Education Answer Date Recorded What is the highest level of school you have completed or the highest degree you have received? 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) 12/21/2018 Comments No Sex and Gender [...] 05/22/2024 oxyCODONE-acetaminop hen (PERCOCET) 5-325 MG tabletIndications:Ac table mountain Pain < 3 Day Supply Take 1 [...] st Contact Info) Description 11/14/2024 8:00 AM MANAGER GRAPHIC Office Visit [facility] - [facility], [address] [place] [phone] Montserrat Oliver NP 3 [facility] [address] [place] [address] 12/06/2024 9:30 AM MANAGER GRAPHIC Appointment [facility] [address] [place] [address] [place] [address] [facility]. [address] [place] [address] 03/02/2025 3:20 PM CDT Office Visit [facility] Family & Internal Medicine - [address] [address] [place] [address] [facility] [place] [address] documented as of this encounter Goals Goal Patient Goal Type Associated Problems Recent Progress Patient-Stated? Author Family - family caregiver with be involved in care transitions and discharge planning Lifestyle No Nessa Pan, AUTOMOBILE GLASS TECHNICIAN documented as of this encounter Procedures Procedure Name Priority Date/Time Associated Diagnosis Comments XR ABD KUB Routine 06/02/2024 4:06 PM CDT Hospital discharge follow-up SBO (small bowel obstruction) (CMS/HCC HHS/HCC) documented in this encounter Results * XR ABD KUB (06/02/2024 4:06 PM CDT) Anatomical Region Laterality Modality Abdomen Radiographic Corin ging 06/05/2024 3:57 AM CDT Impressions 06/05/2024 3:58 AM CDT IMPRESSION: 1. ??NONOBSTRUCTIVE BOWEL GAS PATTERN. Signed: Be Jones MD Referred By: ?? Interpreted By: Be Jones MD, 06/05/2024 3:57 AM Narrative 06/05/2024 3:58 AM CDT [facility] Ab[facility]en one view DATE OF EXAM: [...] Jones MD - 06/05/2024 [facility]: Abdomen one view DATE OF EXAM: [...] Dayanara Plaza MD GENERAL IMAGING Final Result documented in this encounter Visit Diagnoses Diagnosis Hospital discharge follow-up Other follow-up examination SBO (small bowel obstruction) (CMS/HCC HHS/HCC) Unspecified intestinal obstruction documented in this encounter Additional Health Concerns Assessment Noted Time PHQ-9 Depression Total Score: 0 04/03/20 10:56 AM CDT documented as of this encounter Care Teams Area Director Of Home Health Sales Relationship Specialty [place] [address] [facility]. [address] [place] [address] PCP - General FAMILY PRACTICE 03/01/23 Perez Cervantes MD [address] [place] [address] RHEUMATOLOGY 09/02/23 Adriana Ma MD [address] [place] [address] Referring Physician ALLERGY 09/02/23 documented as of this encounter
--- OUTSIDE RECORDS SUMMARY | 2024-11-13 17:10 | XMS_ITS | Encounter Summary ---
Author Organization [facility] Address [address] [place] [address]. [place], [place] [id number] [place] [address] Care Team Providers Care Franchise Development Manager Name Role Phone Dayanara Plaza MD Primary Care Provider [phone] Perez Cervantes MD Unavailable Adriana Ma MD Unavailable [phone] Reason for Referral * Procedure (Routine) - Closed Specialty Diagnoses / Procedures Referred By Chalino t Referred To Contact [facility] Physical Therapy Diagnoses Tarsal tunnel syndrome, right lower limb Procedures EMG Riley Thompson DPM [address] [address] Phone: tel: fax: Hay Melara MD 1 [place] [address] Phone: tel: fax: Referral ID Status Reason Start Date Expiration Date Visits Re quested Visits Authorized [id number] Closed 08/30/2024 08/30/2025 1 1 Reason for Visit * Procedure (Routine) - Closed Specialty Diagnoses / Procedures Referred By Contkayden t Referred To Contact [facility] Physical Therapy Diagnoses Tarsal tunnel syndrome, right lower limb Procedures EMG Riley Thompson DPM [address] [address] Phone: tel: fax: Hay Melara MD 1 [place] [address] Phone: tel: fax: Referral ID Status Reason Start Date Expiration Date Visits Re quested Visits Authorized [id number] Closed 08/30/2024 08/30/2025 1 1 Encounter Details Date Type Department Care Team (Latest Contact Info) Description 08/30/2024 2:44 PM CDT - 08/30/2024 11:59 PM CDT Hospital Encounter [facility] [address] [place], [place] [id number] Riley Thompson, IHSAN [address] [facility] [address] [place] [address] [place] [address] [place] [phone] Discharge Disposition: Home or Self Care (Routine [...] from your doctor or pharmacy? Never 05/23/2024 [facility] Utilities Answer Date Recorded [...] Patient Health Questionnaire-2 Score 0 04/03/2024 [facility] - Occupational Stress Questionnaire Answer Date Recorded [...] were you homeless or living in a long-term (including now)? No 05/23/2024 Education Answer Date Recorded What is the highest level of school you have completed or the highest degree you have received? Master's degree (e.g., MA, MS, Howard, MEd, STEEL CHECKER, KEKE) 12/21/2018 Comments No Sex and Gender [...] Status No 05/23/2024 5:13 PM TIARAT Angélica Jonhson RN Active * Do you have difficulty [...] Ramirez RN Active documented in this encounter Medications [...] packet by mouth daily. 30 tablet 05/22/2024 documented as of this encounter Plan of Treatment Upcoming Encounters Date Type Department Care Team (Late st Contact Info) Description 11/14/2024 8:00 AM PROCUREMENT CONSULTANT Office Visit [facility] - [facility] 3 [facility], [address] [place] [phone] Montserrat Oliver NP 3 [facility] [address] [place] [address] 12/06/2024 9:30 AM PROCUREMENT CONSULTANT Appointment [facility] [address] [place] [address] [place] [address] [facility] [place] [phone] 03/02/2025 3:20 PM CDT Office Visit [facility] Family & Internal Medicine - [address] [address] [place] [address] [facility]. [address] [place] [address] documented as of this encounter Goals Goal Patient Goal Type Associated Problems Recent Progress Patient-Stated? Author Family - family caregiver with be involved in care transitions and discharge planning Lifestyle No Nessa Pan, ALIGNMENT TECHNICIAN documented as of this encounter Procedures Procedure Name Priority Date/Time Associated Diagnosis Comments EMG Routine 08/30/2024 2:44 PM CDT Tarsal tunnel syndrome, right lower limb documented in this encounter Results * EMG (08/30/2024 2:44 PM CDT) 08/30/2024 2:44 PM CDT Narrative ESCRIPTION - 09/04/2024 12:49 PM CDT Patient Name: HANS PASCUAL Date of : 1965 Account: [id number] Facility[facility] Location: [facility] Date of Service: 08/30/2024 EMG COMPLAINT: ??Right [...] (clinical correlation is required). Signature/Date: ? HAY Ankur MELARA D: ??08/30/2024 03:04 PM ??#[id number] T: ??08/30/2024 04:06 PM ??/SKY us Riley Thompson DPM NEUROLOGY ORDERABLES Final Resul t ESCRIPTION documented in this encounter Visit Diagnoses Diagnosis Tarsal tunnel syndrome, right lower limb documented in this encounter Additional Health Concerns Assessment Noted Time PHQ-9 Depression Total Score: 0 04/03/20 24 10:56 AM CDT documented as of this encounter Care Teams Franchise Development Manager Relationship Specialty Start [place] [address] [facility] [address] [place] [address] PCP - General FAMILY PRACTICE 03/01/23 Perez Cervantes MD [address] [place] [address] RHEUMATOLOGY 09/02/23 Adriana Ma MD [address] [place] [address] Referring Physician ALLERGY 09/02/23 documented as of this encounter
--- OUTSIDE RECORDS SUMMARY | 2024-11-13 17:10 | XMS_ITS | Clinical Summary ---
Author Organization [facility] Address [address] [place] [address]. [place] [address] [place] [address] Care Team Providers Care Marine Machinist Name Role Phone Dayanara Plaza MD Primary Care Provider [phone] Perez Cervantes MD Unavailable Adriana Ma MD Unavailable Allergies Active Allergy Reactions Criticality Noted Date Comments Levofloxacin Nausea and Vomiting,Nausea Only,Hallucinations,Othe r (see comment) High 02/17/2018 hallucinations Other reaction(s): Other hallucinations Medications methotrexate 2.5 MG tablet Take by mouth once a week. Take 6 tablets every 7 days. 06/06/20 18 Active etanercept 50 MG/ML injection Inject 1 mL (50 mg total) into the skin weekly. 05/30/20 14 Active valACYclovir 1 g tablet as needed. 10/10/20 19 Active fexofenadine (PIYUSH) 180 MG tablet Take 1 tablet (180 mg total) by mouth daily. Active estradiol (ESTRACE) 0.1 MG/GM vaginal cream Place vaginally daily. 10/26/20 23 Active montelukast (SINGULAIR) 10 MG tabletIndications: Seasonal allergies TAKE 1 TABLET (10 MG TOTAL) BY MOUTH DAILY. 90 tablet 3 11/29/19 24 Active dicyclomine (BENTYL) 20 MG tabletIndications: Irritable bowel syndrome with both constipation and diarrhea Take 1 tablet (20 mg total) by mouth every 6 (six) hours as needed. 60 tablet 2 05/11/20 24 Active ALPRAZolam (XANAX) 0.25 MG tabletIndications: Anxiety Take 1 tablet (0.25 mg total) by mouth nightly as needed for Anxiety or Sleep. FOR ANXIETY 30 tablet 05/16/20 24 Active folic acid (FOLVITE) 1 MG tablet Take 1 tablet (1 mg total) by mouth daily. Active nabumetone (RELAFEN) 500 MG tablet Take 1 tablet (500 mg total) by mouth 2 (two) times daily as needed for Pain. Active traZODone (DESYREL) 100 MG tabletIndications: Insomnia due to other mental disorder Take 1.5 tablets (150 mg total) by mouth nightly at bedtime. 135 tablet 3 07/25/20 24 Active amoxicillin-clavul anate (AUGMENTIN) 875-125 MG tablet Take 1 tablet (875 mg total) by mouth 2 (two) times daily. 11/06/20 24 Active doxycycline hyclate (VIBRAMYCIN) 100 MG capsule Take 1 capsule (100 mg total) by mouth 2 (two) times daily. for 5 days 11/06/20 24 Active oxyCODONE-acetamin ophen (PERCOCET) 5-325 MG tabletIndications: Acute Pain < 3 Day Supply Take 1 tablet by mouth every 4 (four) hours as needed for Pain. Indications: Acute Pain < 3 Day Supply 12 tablet 05/21/20 24 024 Discontin ued(Thera py completed ) pantoprazole (PROTONIX) 40 MG packet Take 1 packet by mouth daily. 30 tablet 05/22/20 24 024 Discontin ued(Thera py completed ) ondansetron (ZOFRAN-ODT) 8 MG disintegrating tablet Take 1 tablet (8 mg total) by mouth every 8 (eight) hours as needed for Nausea. 20 tablet 05/22/20 24 024 Discontin ued(Thera py completed ) Active Problems Problem Noted Date Diagnosed Date SBO (small bowel obstruction) ([facility]) 05/23/2024 Vasovagal syncope 2023 Anxiety 2023 Iliac crest bone pain 11/04/2021 Plantar fasciitis of right foot 07/16/2021 Seasonal allergies 05/02/2021 Pharyngoesophageal dysphagia 02/06/2021 Overview (02/06/2021): Added automatically from request for surgery [id number] Encounter for screening colonoscopy 02/06/2021 Overview (02/06/2021): Added automatically from request for surgery [id number] BMI 24.0-24.9, adult 05/01/2019 DURAN (generalized anxiety disorder) 11/30/2018 Assessment & Plan (11/30/2018 4:47 PM PRECISION ASSEMBLER): Discussed starting a SSRI or SNRI and very anxious about the side effects. Discussed buspar and is willing to try that. Would also like to try talking with a therapist Polyarthritis 12/19/2013 Overview (11/30/2018): Annotation - [id number]: followed by Perez Cervantes MD at [facility] Rheumatology Esophageal reflux 11/12/2012 Insomnia 11/05/2012 Arthritis 10/14/2012 Irritable bowel syndrome 09/23/2012 Resolved Problems Problem Noted Date Diagnosed Date Resolved Date Trigger ring finger of right hand 05/02/2021 01/29/2023 Fever, unspecified fever cause 01/10/2020 01/29/2023 Upper respiratory tract infe ction, unspecified type 10/11/2019 01/29/2023 Recurrent major depressive d isorder, in partial remission 08/02/2019 04/03/2024 Dermatitis 01/31/2019 11/06/2019 Wears glasses 03/17/2018 07/26/2020 Encounters Date Type Department Care Team Description 11/10/2024 3:49 PM PRECISION ASSEMBLER - 11/10/2024 11:59 PM PRECISION ASSEMBLER Hospital Encounter [facility] [address] [place] [address] Dayanara Plaza MD Discharge Disposition: Home or Self Care (Routine Discharge) 11/10/2024 3:10 PM PRECISION ASSEMBLER Laboratory Only [facility] Family & Internal Medicine [address] [address] Dayanara Plaza MD 11/10/2024 2:20 PM PRECISION ASSEMBLER Office Visit [facility] Family & Internal Medicine - [place] [address] [place] [address] Dayanara Plaza MD Follow Up (ER follow. [facility]) 11/10/2024 MyChart Message Enc [facility] Family & Internal Medicine [facility] [address] [place] [address] Dayanara Plaza MD Need meds for MRI 11/10/2024 Travel 11/06/2024 Scan HEALTH INFO SRVCS Scanned, [facility] Image (SCAN); ECG (SCAN) 11/06/2024 Travel 08/30/2024 2:44 PM CDT - 08/30/2024 11:59 PM CDT Hospital Encounter [facility] [place] [address] Riley Thompson, DPHay Gastelum MD Discharge Disposition: Home or Self Care (Routine Discharge) 08/30/2024 Travel 08/30/2024 Orders Only [facility] [place] [address] Hay Zavlaeta MD 08/29/2024 Scan [employer] SRVCS Scanned, [facility] 08/21/2024 3:09 PM CDT - 08/21/2024 11:59 PM CDT Hospital [place] [address] Lian Sauer MD Discharge Disposition: Home or Self Care (Routine Discharge) 08/21/2024 Travel from Last 3 Months Immunizations Name Administration Dates Next Due Arexvy Respiratory Syncytial Virus (RSV, adjuvanted) 0.5 mL, PF 09/01/2023 Fluarix 08/22/2020 Fluzone Adult - >Age 3 (Pref illed Syringe) 11/20/2020(Deferred: Patient Ill Today) Influenza (Generic) 09/01/2022,08/21/2021,2016 Influenza Adult (Generic) 08/31/2023,06/2020,08/02/2019,2017,09/05/2015,09/02/2013 MODERNA COVID-19 BIVALENT (1 2+), MRNA, LNP-S, PF 08/07/2022 MODERNA COVID-19 (12+) MRNA, LNP-S, PF, 100 MCG/ 0.5 ML DOSE 06/28/2021,01/03/2021,12/06/2020 MODERNA COVID-19 (GOVERNMENT GAUGER ADEN NATA), MRNA, LNP-S, PF, 50 MCG/ 0.25 ML DOSE 12/26/2021 Pneumococcal (Pneumovax 23) 08/06/2021, 6 Shingrix 03/03/2024,12/15/2023 Tdap (Adacel) 05/11/2024 Family History Medical History Relation Comments mva Father COPD Mother Relation Status Comments Father Mother Alive Social History Tobacco Use Types Packs/Day Years [...] from your doctor or pharmacy? Never 05/23/2024 [facility] Utilities Answer Date Recorded In the past 12 months has [facility], [employer], or water [facility] threatened to shut off services in your [...] Recorded Patient Health Questionnaire-2 Score 0 04/03/2024 [facility] of Occupat [facility] - Occupational Stress Questionnaire Answer Date Recorded [...] any time in the past 12 m [facility], were you homeless or living in a residential (including now)? No 05/23/2024 Education Answer Date Recorded What is the highest level of school you have completed or the highest degree you have received? 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 file Last Filed Vital Signs Vital Sign Reading Time Taken Comments Blood Pressure 93/61 11/10/2024 2:17 PM PRECISION ASSEMBLER Pulse 72 11/10/2024 2:17 PM PRECISION ASSEMBLER Temperature 37.2 ??C (99 ??F) 11/10/2024 2:17 PM PRECISION ASSEMBLER Respiratory Rate 18 11/10/2024 2:17 PM PRECISION ASSEMBLER Oxygen Saturation 98% 11/10/2024 2:17 PM PRECISION ASSEMBLER Inhaled Oxygen Concentration - - Weight 75.8 kg (167 lb 3.2 oz) 11/10/2024 2:17 P M PRECISION ASSEMBLER Height 172.7 cm (5' 8 ) 11/10/2024 2:17 PM PRECISION ASSEMBLER Body Mass Index 25.42 11/10/2024 2:17 PM PRECISION ASSEMBLER Plan of Treatment Upcoming Encounters Date Type Department Care Team (Late st Contact Info) Description 11/14/2024 8:00 AM PRECISION ASSEMBLER Office Visit [facility] Multispecialty Care - [facility] [address] [facility], [address] [place] [phone] Montserrat Oliver NP [address] [facility] [address] [place] [address] 12/06/2024 9:30 AM PRECISION ASSEMBLER Appointment [facility] Open MRI [address] [place] [address] [place] [address] [address] [place] [address] 03/02/2025 3:20 PM CDT Office Visit [facility] Family & Internal Medicine - [place] [address] [place] [address] [place] [address] [facility] [place] [address] Health Maintenance Due Date Last Done Comments Cervical Cancer Screening Pap Smear (Age 30 to 64) Every 3 Years 1965 Annual Physical 1966 Pneumococcal Vaccine: Pediatrics (0 to 5 Years) and At-Risk Patients (6 to 64 Years) (3 of 3 - PCV) 08/06/2022 08/06/2021, 08/16/2016 COVID-19 Vaccine ( season) 2024 08/18/2024, 08/02/2023, 08/07/2022, Additional history exists Mammogram Screening 01/06/2025 01/06/2023, 11/18/2021, 07/11/2020, Additional history exists Colorectal Cancer Screening Colonoscopy (10 Years) 03/17/2031 03/17/2021, 09/01/2010 Cervical Cancer Screening Pap with HPV Testing (Age 30 to 64) Every 5 Years 05/01/2032 Cervical Cancer Screening with HPV 05/01/2032 DTaP, Tdap and Td Vaccines (2 - Td or Tdap) 05/11/2034 05/11/2024 RSV Immunization or 60+ Years Completed 09/01/2023 Zoster Vaccines Completed 03/03/2024, 12/15/2023 Influenza Adult Completed 08/18/2024, 08/15, 09/01/2022, Additional history exists Hepatitis C Completed 10/25/2024, 10/15, 10/25/2024, Additional history exists Meningococcal Vaccine Aged Out No donavan layo eligible based on patient's age to complete this topic RSV Immunizations Under 20 Months Aged Out No longer eligible based on patient's age to complete this topic Goals Goal Patient Goal Type Associated Problems Recent Progress Patient-Stated? Author Family - family caregiver with be involved in care transitions and discharge planning Lifestyle No Nessa Pan, AREA MANAGER Procedures Procedure Name Priority Date/Time Associated Diagnosis Comments VENIPUNC ARM DRAW Routine 11/10/2024 2:5 9 PM PRECISION ASSEMBLER Syncope, unspecified syncope type BASIC METABOLIC PANEL Routine 11/10/2024 2:58 PM PRECISION ASSEMBLER Syncope, unspecified syncope type CBC W/DIFF AUTOMATED Routine 11/10/2024 2:58 PM PRECISION ASSEMBLER Syncope, unspecified syncope type ECG GENERIC (SCAN ORDER) 11/06/2024 IMAGE GENERIC 11/06/2024 IMAGE GENERIC 11/06/2024 EMG Routine 08/30/2024 2:44 PM CDT Tarsal tunnel syndrome, right lower limb CT ABD+PEL W CON Routine 08/21/2024 3:37 PM CDT Abdominal pain MG SCREENING W KRISTEN VICTORIANO DIGI Routine 01/06/2023 3:08 PM PRECISION ASSEMBLER Encounter for screening mammogram for malignant neoplasm of breast COLONOSCOPY Routine 09/01/2010 12:00 AM CDT from Last 3 Months or Most Recently Relevant to Health Maintenance Results * (ABNORMAL) BASIC METABOLIC PANEL (11/10/2024 2:58 PM PRECISION ASSEMBLER) GLUCOSE 91 70 - 99 MG/DL 11/10/2024 4:10 PM [facility] BUN 12 7 - 18 MG/DL 11/10/2024 4:10 PM [facility] CREATININE S/P/B 0.87 0.55 - 1.02 MG/DL 11/10/2024 4:10 PM [facility] SODIUM S/P/B 143 136 - 145 MMOL/L 11/10/2024 4:10 PM [facility] POTASSIUM S/P/B 4.7 3.5 - 5.1 MMOL/L 11/10/2024 4:10 PM [facility] CHLORIDE S/P/B 105 100 - 108 MMOL/L 11/10/2024 4:10 PM PRECISION ASSEMBLER [facility] CO2 29.6 21 - 32 MMOL/L 11/10/2024 4:10 PM [facility] CALCIUM S/P/B 9.8 8.5 - 10.1 MG/DL 11/10/2024 4:10 PM [facility] ANION GAP 8.4 5 - 15 MMOL/L 11/10/2024 4:10 PM [facility] BUN CREATININE RATIO 13.8 6 - 26 11/10/2024 4:10 PM [facility] GFR ESTIMATE 76(L) >90 ML/MIN/1.7 3 M2 11/10/2024 4:10 PM [facility] Comment: NOTE: eGFR is not calculated for patients <18 years of age. This is an estimated GFR calculation using the new CKD EPI creatinine equation without race and so does not require a correction factor for race. This estimated GFR should not be used for calculating drug doses. 11/10/2024 2:58 PM PRECISION ASSEMBLER us Dayanara Plaza MD LABORATORY Final Result [facility] [address] [place] [address], * (ABNORMAL) CBC W/DIFF AUTOMATED (11/10/2024 2:58 PM PRECISION ASSEMBLER) WBC 5.06 4.4 - 11.0 x10'3/uL 11/10/2024 4:24 PM [facility] RBC 3.58(L) 4.50 - 5.10 x10'6/uL 11/10/2024 4:24 PM [facility] HGB 11.5(L) 12.3 - 15.3 G/DL 11/10/2024 4:24 PM [facility] HCT 34.4(L) 35.9 - 44.6 % 11/10/2024 4:24 PM [facility] MCV 96.1(H) 80.0 - 96.0 FL 11/10/2024 4:24 PM [facility] MCH 32.1(H) 25.3 - 30.9 PG 11/10/2024 4:24 PM [facility] MCHC 33.4 31.0 - 34.1 G/DL 11/10/2024 4:24 PM [facility] RDW 14.1 12.4 - 15.1 % 11/10/2024 4:24 PM [facility] PLT 281 151 - 353 x10'3/uL 11/10/2024 4:24 PM [facility] MPV 10.7 9.6 - 12.0 FL 11/10/2024 4:24 PM [facility] SEG NEUTROPHILS 53 42 - 72 % 5:11 PM [facility] LYMPHOCYTES 32 15.8 - 45.0 % 11/10/2024 5:11 PM [facility] MONOCYTES 10 5.7 - 12.5 % 11/10/2024 5:11 PM [facility] EOSINOPHILS 3 0 - 5.6 % 11/10/2024 5:11 PM [facility] ATYP. LYMPHS 2 % 11/10/2024 5:11 PM [facility] ABS. NEUTROPHILS 2.68 1.40 - 6.00 x10'3/uL 11/10/2024 5:11 PM [facility] ABS. LYMPHOCYTES 1.72 0.80 - 4.70 x10'3/uL 11/10/2024 5:11 PM PRECISION ASSEMBLER [facility] PLT MORPH. NORMAL 11/10/2024 5:11 PM PRECISION ASSEMBLER [facility] RBC MORPHOLOGY NORMAL 11/10/2024 5:11 PM PRECISION ASSEMBLER [facility] WBC MORPHOLOGY NORMAL 11/10/2024 5:11 PM [facility] 11/10/2024 2:58 PM PRECISION ASSEMBLER Dayanara Plaza MD LABORATORY Final Result [facility] [address] [place] [address], * ECG GENERIC (SCAN ORDER) (11/06/2024) 11/06/2024 [facility] Scanned SCANNING Final Resu lt * IMAGE GENERIC (11/06/2024) Only the most recent of2 resultswithin the time period is included. Anatomical Region Laterality Modality Other 11/06/2024 Result [facility] Scanned SCANNING Final Resu lt * EMG (08/30/2024 2:44 PM CDT) 08/30/2024 2:44 PM CDT Narrative ESCRIPTION - 09/04/2024 12:49 PM CDT Patient Name: HANS PASCUAL Date of : 1965 Account: [id number] Facility: [facility] Location: [facility] Date of Service: 08/30/2024 EMG [...] (clinical correlation is required). Signature/Date: ? HAY ZAVALETA D: ??08/30/2024 03:04 PM ??#[id number] T: ??08/30/2024 04:06 PM ??/SKY us Riley Thompson DPM NEUROLOGY ORDERABLES Final Resul t ESCRIPTION * CT ABD+PEL W CON (08/21/2024 3:37 PM CDT) Anatomical Region Laterality Modality Abdomen Computed Tomogra phy 08/22/2024 2:39 AM CDT Impressions 08/22/2024 3:42 AM CDT IMPRESSION: 1. ??No acute abnormality identified in the abdomen or pelvis. 2. ??Supraumbilical midline laparotomy incision site within expected limits. Referred By: LIAN SAUER Interpreted By: Rodrigo Crum MD, 08/22/2024 2:39 AM Narrative 08/22/2024 3:42 AM CDT [address] [address] INDICATION: Postoperative abdominal pain COMPARISON: CT abdomen/pelvis, [...] Procedure Note Rodrigo Crum MD - 08/22/2024 [facility] [address] [place], [place] [address] INDICATION: Postoperative abdominal pain COMPARISON: CT abdomen/pelvis, [...] laparotomy incision site within expectedlimits. Referred By: LIAN SAUER Interpreted By: Rodrigo Crum MD, 08/22/2024 2:39 AM us Lian Sauer MD CT Final Resul t * MG SCREENING W KRISTEN VICTORIANO DIGI (01/06/2023 3:08 PM PRECISION ASSEMBLER) Anatomical Region Laterality Modality Breast Bilateral Mammography 01/06/2023 4:06 PM PRECISION ASSEMBLER Narrative 01/06/2023 4:09 PM PRECISION ASSEMBLER Examination: Screening bilateral mammogram with 3-D tomosynthesis Clinical history: No family history of breast cancer. ??No present breast related complaints. Comparison: 11/18/2021, 07/11/2020, 05/31/2019, 06/23/2018 Technique: Digital screening mammography of both breasts was performed. 3-D tomosynthesis technique was also performed. This study was read with the assistance of computer-aided detection system. Tissue density: The breast tissue is heterogeneously dense, which may obscure small masses. Findings: No suspicious masses, malignant appearing calcifications, skin thickening or other abnormalities are present. ??No significant change from the prior exam. Vascular calcifications are noted. Findings are suspicious for atherosclerotic change. IMPRESSION: No suspicious mammographic findings. Recommendation: 1. Routine Screening, Bilateral Assessment: ACR BI-RADS 2 - BENIGN FINDING(S) Comments: A negative or benign mammography report should not delay follow-up or biopsy of a clinically significant finding or palpable abnormality. Regions of dense breast tissue may obscure findings on mammogram. Ordered By: ISABEL FELDER Interpreted By: Chan Leslie MD, 01/06/2023 4:06 PM Isabel Felder MD MAMMO Final Result * Colonoscopy (09/01/2010 12:00 AM CDT) 09/01/2010 09/01/2010 Narrative [facility] TO EPIC CONVERSION - 09/01/2010 12:00 AM CDT Documented hx of procedure Procedure Note Kings Elder MD - 09/18/2018 Documented hx of procedure us Generic Mayra Elder MD GI PROCEDURE ORDERABLES Final Result [facility] TO EPIC CONVERSION from Last 3 Months or Most Recently Relevant to Health Maintenance Insurance [employer] [place] [id number] Advance Directives * Full Code (Latest Code Status on File) Date Activated Date Inactivated Comments 05/23/2024 7:57 AM 05/30/2024 12:23 PM Care Teams Marine Machinist Relationship Specialty [place] [address] [facility] [place] [address] PCP - General FAMILY PRACTICE 03/01/23 Perez Cervantes MD [address] [place] [phone] RHEUMATOLOGY 09/02/23 Adriana Ma MD [address] [place] [address] Referring Physician ALLERGY 09/02/23
--- OUTSIDE RECORDS SUMMARY | 2024-11-13 17:10 | XMS_ITS | Encounter Summary ---
Author Organization [facility] Address [address] [place] [address]. [place] [address] [place] [address] Care Team Providers Care Ornamental Metal Erector Apprentice Name Role Phone Dayanara Plaza MD Primary Care Provider [phone] Perez Cervantes MD Unavailable Adriana Ma MD Unavailable [phone] Encounter Details Date Type Department Care Team (Late st Contact Info) Description 07/24/2024 Orders Only [facility] Family & Internal Medicine - [place] [id number] [place] [phone] Gema Sidhu Social History Tobacco Use Types Packs/Day Years [...] from your doctor or pharmacy? Never 05/23/2024 [facility] Utilities Answer Date Recorded In the past 12 months has th e electric, gas, oil, or water company [...] Recorded Patient Health Questionnaire-2 Score 0 04/03/2024 [facility] - Occupational Stress Questionnaire Answer Date [...] any time in the past 12 m onths, were you homeless or living in a fci (including now)? No 05/23/2024 Education Answer Date Recorded What is the highest level of school you have completed or the highest degree you have received? Master's degree (e.g., MA, MS, Howard, MEd, DIRECTOR OF BUSINESS CONTINUITY, KEKE) 12/21/2018 Comments No Sex and Gender [...] No 05/23/2024 5:13 PM CDT Angélica Johnson , RN Active documented in this encounter Plan of Treatment Upcoming Encounters Date Type Department Care Team (Late st Contact Info) Description 11/14/2024 8:00 AM BEATING MACHINE OPERATOR Office Visit [facility] Multispecialty Care - [facility] [address] [facility], [address] [place] [address] Montserrat Oliver, DOREEN [address] [facility] [address] [place] [address] 12/06/2024 9:30 AM BEATING MACHINE OPERATOR Appointment [facility] Open MRI [address] [place] [address] [place] [address] [place] [address] 03/02/2025 3:20 PM CDT Office Visit [facility] Family & Internal Medicine - [place] [address] [place] [address] [place] [address] [place] [address] documented as of this encounter Goals Goal Patient Goal Type Associated Problems Recent Progress Patient-Stated? Author Family - family caregiver with be involved in care transitions and discharge planning Lifestyle No Nessa Pan, TOP INSTALLER documented as of this encounter Visit Diagnoses Diagnosis Insomnia due to other mental disorder documented in this encounter Additional Health Concerns Assessment Noted Time PHQ-9 Depression Total Score: 0 04/03/20 24 10:56 AM CDT documented as of this encounter Care Teams Ornamental Metal Erector Apprentice Relationship Specialty Start [place] [address] [place], [place] [phone] PCP - General FAMILY PRACTICE 03/01/23 Perez Cervantes MD [address] [place] [address] RHEUMATOLOGY 09/02/23 Adriana Ma MD [address] [place] [phone] Referring Physician ALLERGY 09/02/23 documented as of this encounter
--- OUTSIDE RECORDS SUMMARY | 2024-11-13 17:11 | XMS_ITS | Encounter Summary ---
Author Organization [facility] Address [address] [place] [address]. [place], [place] [id number] [place] [id number] Care Team Providers Care Elevator Examiner And Adjuster Name Role Phone Dayanara Plaza MD Primary Care Provider [phone] Reason for Visit * Reason Comments Anxiety Pt having worsening anxiety. Pt states she had a higher then normal BP and the school nurse said to come to the doc. Encounter Details Date Type Department Care Team (Late st Contact Info) Description 03/03/2023 4:00 PM CDT Office Visit [facility] Family & Internal Medicine [facility] [id number] [place] [phone] Allyson Arzola, BRIANA [address] [facility] [address] [place] [address] Anxiety (Pt having worsening anxiety. Pt states she had a higher then normal BP and the school nurse said to come to the doc.) Social History Tobacco Use Types Packs/Day Years Used Date Smoking Tobacco: Former Cigarettes 0.3 10 0 11/15/1979 - 11/15/1989 Smokeless Tobacco: Never Tobacco Cessation:Counseling Given: No Comments:off and on for 10 years from [age] with long periods of none at all Alcohol Use Standard Drinks/Week Comments No 0 (1 standard drink = 0.6 oz pur e alcohol) AUDIT-C Answer Date Recorded Frequency of Alcohol Consumption Never 11/30/2018 Average Number of Drinks Not on file 019 Frequency of Binge Drinking Not on file 11/15 PHQ-2 Answer Date Recorded Patient Health Questionnaire-2 Score 0 03/03/2023 Education Answer Date Recorded What is the highest level of school you have completed or the highest degree you have received? 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 No / Unsure 03/03/2023 3:41 PM CDT documented as of this encounter Last Filed Vital Signs Vital Sign Reading Time Taken Comments Blood Pressure 98/66 03/03/2023 3:44 PM CDT Pulse 71 03/03/2023 3:44 PM CDT Temperature 37.6 ??C (99.6 ??F) 03/03/2023 3:44 PM CD T Respiratory Rate 12 03/03/2023 3:44 PM CDT Oxygen Saturation 98% 03/03/2023 3:44 PM CDT Inhaled Oxygen Concentration - - Weight 75.8 kg (167 lb) 03/03/2023 3:44 PM CDT Height 172.7 cm (5' 8 ) 03/03/2023 3:44 PM CDT Body Mass Index 25.39 03/03/2023 3:44 PM CDT documented in this encounter Patient Instructions * Patient Instructions* Allyson Arzola APRN - 03/03/2023 4:00 PM CDT Thank you for your visit today! documented in this encounter Progress Notes * Allyson Arzola APRN - 03/03/2023 4:00 PM CDT Reason for Visit: Anxiety (Pt having worsening anxiety. Pt states she had a higher then normal BP and the school nurse said to come to the doc.) History of Present Illness: Hans Pascual is a 57-year-old female who presents to the office with acute concern for anxiety. 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 Reviewed vital signs taken in office today. Denies chest pain, SOB, dizziness, nausea, or LOC changes. 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 She reports thishas not happened since but she has felt some increased anxiety lately. She states her family is having some issues arise lately along with her upcoming shelter. She is wanting address her daily anxiety and follow up about the syncopal episode. ROS: Review of Systems Constitutional: Negative for activity change, appetite change, chills, fatigue, fever and night sweats. HENT: Negative for congestion and sinus pressure. Eyes: Negative for pain. Respiratory: Negative for cough, sputum production, chest tightness and shortness of breath. Cardiovascular: Negative for chest pain. Gastrointestinal: Negative for abdominal pain, bowel incontinence and change in bowel habit. Genitourinary: Negative for dysuria. Musculoskeletal: Negative for myalgias. Skin: Negative for rash. Neurological: Negative for dizziness, headaches, imbalance, bowel incontinence and bladder incontinence. Psychiatric/Behavioral: Negative for self-injury, sleep disturbance and suicidal ideas. The patientis nervous/anxious. Medications: Current Outpatient Medications: ALPRAZolam (XANAX) 0.25 MG tablet, Take 1 tablet (0.25 mg total) by mouth nightly as needed for Anxiety., Disp: 30 tablet, Rfl: 0 Ascorbic Acid (VITAMIN C) 100 MG tablet, Take 1 tablet (100 mg total) by mouth daily., Disp: , Rfl: azelastine 0.1 % nasal spray, 2 sprays by Nasal route., Disp: , Rfl: BUSPIRONE 15 MG tablet, TAKE 1 TABLET BY MOUTH TWICE A DAY, Disp: 180 tablet, Rfl: 0 citalopram (CELEXA) 20 MG tablet, Take 1 tablet (20 mg total) by mouth daily., Disp: 30 tablet, Rfl: 0 dicyclomine (BENTYL) 20 MG tablet, Take 1 tablet (20 mg total) by mouth every 6 (six) hours as needed., Disp: 120 tablet, Rfl: 0 Estradiol 10 MCG vaginal tablet, , Disp: , Rfl: etanercept 50 MG/ML injection, Inject 1 mL (50 mg total) into the skin weekly., Disp: , Rfl: fexofenadine 180 MG tablet, Take 1 tablet (180 mg total) by mouth., Disp: , Rfl: folic acid 1 MG tablet, Take 1 tablet (1 mg total) by mouth daily., Disp: , Rfl: methotrexate 2.5 MG tablet, TAKE 8 TABLETS EVERY 7 DAYS, Disp: , Rfl: montelukast 10 MG tablet, Take 1 tablet (10 mg total) by mouth daily., Disp: 90 tablet, Rfl: 1 multivitamin tablet, Take 2 tablets by mouth daily., Disp: , Rfl: nabumetone 500 MG tablet, Take 2 tablets (1,000 mg total) by mouth 2 (two) times daily., Disp: , Rfl: polyethylene glycol packet, Take 240 mLs (1 packet total) by mouth daily as needed., Disp: , Rfl: valACYclovir 1 g tablet, as needed. , Disp: , Rfl: Review of patient's allergies indicates: Allergen Reactions Levofloxacin Nausea and Vomiting, Nausea Only, Hallucinations and Other (see comment) hallucinations Other reaction(s): Other hallucinations Past Medical History: Diagnosis Date Anxiety GERD (gastroesophageal reflux disease) Heart murmur IBS (irritable bowel syndrome) Inflammatory arthritis RA (rheumatoid arthritis) ([facility]) Wears glasses Past Surgical History: Procedure Laterality Date CHOLECYSTECTOMY COLONOSCOPY AH 9 yrs. 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 E-Cigarettes Questions Responses E-Cigarette Use Never User Family History Problem Relation Name Age of Onset COPD Mother Other (mva) Father Family Status Relation Name Status Mother Alive Father Physical Exam Vitals reviewed. Constitutional: General: She is awake. She is not in acute distress. Appearance: Normal appearance. She is well-developed and well-groomed. She is not ill-appearing, toxic-appearing or diaphoretic. HENT: Head: Normocephalic and atraumatic. Right Ear: Tympanic membrane, external ear and ear canal normal. Left Ear: Tympanic membrane, external ear and ear canal normal. Nose: Nose normal. Mouth/Throat: Uvula is midline and mucous membranes are normal. Mucous membranes are moist. Oropharynx is clear. Eyes: General: Lids are normal. Right eye: No discharge. Left eye: No discharge. Extraocular Movements: Right eye: No nystagmus. Left eye: No nystagmus. Conjunctiva/sclera: Conjunctivae normal. Pupils: Pupils are equal, round, and reactive to light. Cardiovascular: Rate and Rhythm: Normal rate and regular rhythm. Pulses: Normal pulses. Heart sounds: Normal heart sounds, S1 normal and S2 normal. No murmur heard. Pulmonary: Effort: Pulmonary effort is normal. No respiratory distress. Breath sounds: Normal breath sounds and air entry. No stridor. No wheezing. Abdominal: Tenderness: There is no abdominal tenderness. Musculoskeletal: General: Normal range of motion. Cervical back: Full passive range of motion without pain, normal range of motion and neck supple. No tenderness. Skin: General: Skin is warm and dry. Capillary Refill: Capillary refill takes less than 2 seconds. Neurological: General: No focal deficit present. Mental Status: She is alert and oriented to person, place, and time. Motor: Motor function is intact. Coordination: Coordination is intact. Gait: Gait is intact. Psychiatric: Attention and Perception: Attention and perception normal. Mood and Affect: Mood and affect normal. Speech: Speech normal. Behavior: Behavior normal. Behavior is cooperative. Thought Content: Thought content normal. Cognition and Memory: Cognition normal. Judgment: Judgment normal. Filed Vitals: 03/03/23 1544 BP: 98/66 Pulse: 71 Resp: 12 Temp: 99.6 ??F (37.6 ??C) TempSrc: Temporal SpO2: 98% Weight: 75.8 kg (167 lb) Height: 5' 8 (1.727 m) Diagnoses/Impression: 1. Anxiety ALPRAZolam (XANAX) 0.25 MG tablet 2. Vasovagal syncope Stress test only, exercise 3. DURAN (generalized anxiety disorder) citalopram (CELEXA) 20 MG tablet Recommendations and Plan: 1. Anxiety - Chronic. Continue current regimen. -Current life stressors causing anxiety to be uncontrolled - ALPRAZolam (XANAX) 0.25 MG tablet; Take 1 tablet (0.25 mg total) by mouth nightly as needed for Anxiety. Dispense: 30 tablet; Refill: 0 2. Vasovagal syncope - Stress test only, exercise; Future - patient to consider follow up with cardiology 3. DURAN (generalized anxiety disorder) - Chronic. Controlled. Continue current regimen. - citalopram (CELEXA) 20 MG tablet; Take 1 tablet (20 mg total) by mouth daily. Dispense: 30 tablet; Refill: 0 Orders Placed This Encounter ALPRAZolam (XANAX) 0.25 MG tablet citalopram (CELEXA) 20 MG tablet Stress test only, exercise Return to clinic with new, persistent, or worsening symptoms. Hans Pascual is in agreement toand verbalized understanding of treatment plan with no further questions at this time. Reviewed and updated this visit by provider: ALLYSON ARZOLA APRN Referring Provider: No ref. provider found PCP: Dayanara Plaza MD documented in this encounter Plan of Treatment Upcoming Encounters Date Type Department Care Team (Late st Contact Info) Description 11/14/2024 8:00 AM SCRAP PILER Office Visit [facility] Multispecialty Care [facility] [address] [facility], [address] [place] [address] Montserrat Oliver, DOREEN [address] [facility] [address] [place] [address] 12/06/2024 9:30 AM SCRAP PILER Appointment [facility] Open MRI [address] [facility] [place] [address] [place] [address] [place] [address] 03/02/2025 3:20 PM CDT Office Visit [facility] Family & Internal Medicine - [address] [phone] [place] [address] [place] [phone] documented as of this encounter Visit Diagnoses Diagnosis Anxiety- Primary Anxiety state, unspecified Vasovagal syncope Syncope and collapse DURAN (generalized anxiety disorder) Generalized anxiety disorder documented in this encounter Additional Health Concerns Assessment Noted Time PHQ-9 Depression Total Score: 2 05/27/20 22 11:36 AM CDT documented as of this encounter Care Teams Elevator Examiner And Adjuster Relationship Specialty Start Date End Date Dayanara Plaza MD [address] [place], [place] [address] [place] [id number] PCP - General FAMILY PRACTICE 03/01/23 documented as of this encounter
--- OUTSIDE RECORDS SUMMARY | 2024-11-13 17:11 | XMS_ITS | Encounter Summary ---
Author Organization [facility] Address [address] [place] [address]. [place], [place] [address] [place] [address] Care Team Providers Care Machine Assembler For Puller Over Name Role Phone Dayanara Plaza MD Primary Care Provider [phone] Reason for Visit * Reason Comments Diarrhea Symptoms 3 days Flank Pain Left flank pain Encounter Details Date Type Department Care Team (Late st Contact Info) Description 08/30/2023 1:20 PM CDT Office Visit [facility] Family & Internal Medicine [facility] [address] [place] [address] [place] [address] [place] [address] Diarrhea (Symptoms 3 days); Flank Pain (Left flank pain) Social History Tobacco Use Types Packs/Day Years [...] Date Recorded Patient Health Questionnaire-2 Score 0 03/25/2023 Education Answer Date Recorded What is the highest level of school you have completed or the highest degree you have received? Master's degree (e.g., MA, MS, Howard, MEd, TREATMENT SPECIALIST, KEKE) 12/21/2018 Comments No Sex and Gender [...] Sign Reading Time Taken Comments Blood Pressure 110/71 08/30/2023 12:58 PM CDT Pulse 86 08/30/2023 12:58 PM CDT Temperature 37 ??C (98.6 ??F) 08/30/2023 12:58 PM CDT Respiratory Rate 20 08/30/2023 12:58 PM CDT Oxygen Saturation 99% 08/30/2023 12:58 PM CDT Inhaled Oxygen Concentration - - Weight 73.9 kg (163 lb) 08/30/2023 12:58 PM CDT Height 172.7 cm (5' 8 ) 08/30/2023 12:58 PM CDT Body Mass Index 24.78 08/30/2023 12:58 PM CDT documented in this encounter Patient Instructions * Attachments The following attachments cannot be sent through Care Everywhere. * Flank Pain Discharge Instructions (Central African) documented in this encounter Progress Notes * TANYA Root - 08/30/2023 1:20 PM CDT Images from the original note were not included. _ Reason for Visit: Diarrhea (Symptoms 3 days) and Flank Pain (Left flank pain) History of Present Illness: [facility] 58-year-[facility] female here for evaluation [facility] walk in clinic for evaluation of Flank pain and urinary symptoms. Patient is not having burningand frequency. Patient is not running a fever. Patient is not vomiting. Symptoms have been present 3 days. ROS: Review of Systems Feeling well. Denies headaches, vision or hearing problems. No recent colds or flus, denies symptoms suggestive of allergies. Denies dysphagia, heartburn or indigestion. No dyspnea or chest pain on exertion. No nausea, abdominal pain, change in bowel habits, black or bloody stools. No muscle or joint aches or pains. No foot or leg edema. No numbness, tingling,or weakness. No anxiety or depressivesymptoms, Sleeping well. No significant weight gain or loss. No fatigue. Medications: Outpatient Medications Marked as Taking for the 08/30/23 encounter (Office Visit) with TANYA Root Medication Sig Dispense Refill [DISCONTINUED] amoxicillin-clavulanate (AUGMENTIN) 875-125 MG tablet Take 1 tablet (875 mg total) by mouth 2 (two) times daily for 10 days. 20 tablet 0 Ascorbic Acid (VITAMIN C) 100 MG tablet Take 1 tablet (100 mg total) by mouth daily. busPIRone (BUSPAR) 15 MG tablet TAKE 1 TABLET (15 MG TOTAL) BY MOUTH 2 (TWO) TIMES DAILY. 180 tablet 1 [DISCONTINUED] citalopram (CELEXA) 20 MG tablet TAKE 1 TABLET BY MOUTH DAILY 30 tablet 0 [DISCONTINUED] cyclobenzaprine (FLEXERIL) 5 MG tablet Take 1 tablet (5 mg total) by mouth 3 (three)times daily as needed for Muscle Spasms. (Patient not taking: Reported on 09/01/2023) 30 tablet 0 dicyclomine (BENTYL) 20 MG tablet Take 1 tablet (20 mg total) by mouth every 6 (six) hours as needed. 120 tablet 0 etanercept 50 MG/ML injection Inject 1 mL (50 mg total) into the skin weekly. fexofenadine (PIYUSH) 180 MG tablet Take 1 tablet (180 mg total) by mouth daily. folic acid (FOLVITE) 1 MG tablet Take 1 tablet (1 mg total) by mouth daily. methotrexate 2.5 MG tablet Take by mouth once a week. Take 6 tablets every 7 days. montelukast (SINGULAIR) 10 MG tablet TAKE 1 TABLET (10 MG TOTAL) BY MOUTH DAILY. 90 tablet 0 multivitamin tablet Take 2 tablets by mouth daily. nabumetone 500 MG tablet Take 2 tablets (1,000 mg total) by mouth 2 (two) times daily. [place]-3 Fatty Acids (FISH OIL) 1200 MG Cap Take 1 capsule by mouth daily. polyethylene glycol packet Take 240 mLs (1 packet total) by mouth daily as needed. valACYclovir 1 g tablet as needed. Review of patient's allergies indicates: Allergen Reactions Levofloxacin Nausea and Vomiting, Nausea Only, Hallucinations and Other (see comment) hallucinations Other reaction(s): Other hallucinations Past Medical History: Diagnosis Date Anxiety Cataract surgery 2020 COVID-19 GERD (gastroesophageal reflux disease) Heart murmur IBS (irritable bowel syndrome) Inflammatory arthritis Plantar fasciitis RA (rheumatoid arthritis) (HHS/HCC) (CMS/HCC) Wears glasses Past Surgical History: Procedure Laterality Date CHOLECYSTECTOMY COLONOSCOPY AH 9 yrs. COLONOSCOPY N/A 03/17/2021 COLONOSCOPY-NORMAL performed by Niall Matute MD at [facility] GI EYE SURGERY 2020 cataract extraction LAMINECTOMY,LUMBAR SEPTOPLASTY Social History Tobacco Use Smoking status: Former Packs/day: 0.25 Years: 10.00 Pack years: 2.50 Types: Cigarettes Quit date: 11/15/1989 Years since quittin.8 Passive exposure: Past Smokeless tobacco: Never Tobacco comments: off and on for 10 years from 84-94 with long periods of none at all Vaping Use Vaping Use: Never used Substance Use Topics Alcohol use: No Drug use: No Family History Problem Relation Name Age of Onset COPD Mother Shirley Other (mva) Father Family Status Relation Name Status Mother Shirley Alive Father Physical Exam Constitutional: Patient is oriented to person, place, and time. Patient appears well-developed and well-nourished. Head: Normocephalic. Eyes: Pupils are equal, round, and reactive to light. Neck: No JVD present. No thyromegaly present. Cardiovascular: Normal rate, regular rhythm, normal heart sounds and intact distal pulses. No murmur heard. Pulmonary/Chest: No respiratory distress. Patient has no wheezes. Patient has no rales. Patient exhibits no tenderness. Abdominal: Patient exhibits no distension and no mass. There is positive suprapubic tenderness. There is no rebound and no guarding. Musculoskeletal: Normal range of motion. Patient exhibits no edema, tenderness or deformity. Lymphadenopathy: Patient has no cervical adenopathy. Neurological: Patient is alert and oriented to person, place, and time. Skin: No rash noted. No erythema. Psychiatric: Patient has a normal mood and affect. The behavior is normal. Thought content normal. No data to display Vitals: 08/30/23 1258 Patient Position: Sitting BP Location: Right arm Cuff size: Adult Long BP: 110/71 Pulse: 86 Body mass index is 24.78 kg/m??. Assessment and Plan Encounter Diagnose(s) ICD-10-CM SNOMED CT(R) 1. Flank pain R10.9 FLANK PAIN URINALYSIS AUTO DIP XR ABD KUB 2. Acute cystitis without hematuria N30.00 ACUTE CYSTITIS CULTURE URINE Orders Placed This Encounter XR ABD KUB URINALYSIS AUTO DIP DISCONTD: amoxicillin-clavulanate (AUGMENTIN) 875-125 MG tablet DISCONTD: cyclobenzaprine (FLEXERIL) 5 MG tablet CULTURE URINE Patient was told that if symptoms do not improve to utilize the emergency room, call their PCP, or follow back up with the walk-in clinic. If patient needs any additional time off not discussed at this office visit they will need to contact the PCP or be seen in the walk in clinic. Patient should follow annual wellness exams recommended for age and sex of patient. Items to consider but not limited included yearly annual fasting labs, colonscopy or cologuard when indicated. PSA and prostate for males. Mammogram and female exam for females, Portions of this note were dictated using [employer] speech recognition software. Occasional wrong wordor sound-alike substitutions may have occurred due to the inherent limitations of voice recognition software. Please read the chart carefully and recognize, using context, where the substitutions may have occurred. Prakash Staples PA-C evaluated and Dr. Dayanara Plaza reviewed and agrees with plan. documented in this encounter Plan of Treatment Upcoming Encounters Date Type Department Care Team (Late st Contact Info) Description 11/14/2024 8:00 AM THREAD WINDER AUTOMATIC Office Visit [facility] Multispecialty Care - [facility] 3 [facility], [address] [place] [phone] Montserrat Oliver NP 3 [facility] [address] [place] [address] 12/06/2024 9:30 AM THREAD WINDER AUTOMATIC Appointment [facility] Open MRI [address] [place] [address] [place] [address] [place] [address] 03/02/2025 3:20 PM CDT Office Visit [facility] Family & Internal Medicine - [place] [address] [place] [address] [place] [address] [facility]. [address] [place] [address] documented as of this encounter Procedures Procedure Name Priority Date/Time Associated Diagnosis Comments URINALYSIS AUTO DIP Routine 08/30/2023 Flank pain documented in this encounter Results * XR ABD KUB (08/30/2023 1:41 PM CDT) Anatomical Region Laterality Modality Abdomen Radiographic Corin ging 08/30/2023 4:36 PM CDT Impressions 08/30/2023 4:37 PM CDT IMPRESSION: No renal or ureteric stones are identified on this modality. Ordered By: PRAKASH STAPLES Interpreted By: Ez Hoffman MD, 08/30/2023 4:36 PM Narrative 08/30/2023 4:37 PM CDT HISTORY: ??left flank pain ?? TECHNIQUE: ??Supine image(s) of the abdomen and pelvis were obtained on 08/30/2023. at 1341 hours. COMPARISON: None. FINDINGS: LINES OR TUBES: None LUNG BASES: Unremarkable. BOWEL GAS PATTERN: There are no abnormally dilated loops of bowel. FREE AIR: No free air is detected on this supine exam. CALCIFICATIONS/OTHER: Cholecystectomy clips are seen in the right upper quadrant. No suspicious calcifications are seen within the abdomen or pelvis to suggest renal or ureteric stones. MUSCULOSKELETAL: ??Degenerative changes are seen in the visualized portions of the spine. Procedure Note Ez Hoffman MD - 08/30/2023 HISTORY: left flank pain TECHNIQUE: Supine image(s) of the abdomen and pelvis were obtained on08/30/2023. at 1341 hours. COMPARISON: None. FINDINGS: LINES OR TUBES: None LUNG BASES: Unremarkable. BOWEL GAS PATTERN: There are no abnormally dilated loops of bowel. FREE AIR: No free air is detected on this supine exam. CALCIFICATIONS/OTHER: Cholecystectomy clips are seen in the right upperquadrant. No suspicious calcifications are seen within the abdomen orpelvis to suggest renal or ureteric stones. MUSCULOSKELETAL: Degenerative changes are seen in the visualized portionsof the spine. IMPRESSION: No renal or ureteric stones are identified on this modality. Ordered By: PRAKASH STAPLES Interpreted By: Ez Hoffman MD, 08/30/2023 4:36 PM Prakash MARTÍNEZ GENERAL IMAGING Final Result * CULTURE URINE (08/30/2023 1:37 PM CDT) SPEC DESCRIPTION URINE CLEAN CATCH 08/30/2023 5:11 PM CDT [facility] SPECIAL REQUESTS NO SPECIAL REQUEST 08/30/2023 5:11 PM CDT [facility] CULTURE RESULT NO GROWTH 2 DAYS 09/01/2023 7:46 AM CDT [facility] URINE SPECIMEN OBTAINED BY CLEAN CATCH PROCEDURE / Unknown 08/30/2023 1:37 PM CDT 08/30/2023 5:21 PM CDT Prakash MARTÍNEZ MICROBIOLOGY - GENERAL ORDER ADELAIDE Final Result [facility] [address] [place] [address], [place] [phone] [facility] [address] [place] [address], [place] [phone] * (ABNORMAL) URINALYSIS AUTO DIP (08/30/2023) COLOR (U) YELLOW YELLOW [id number], [facility] CLEAR CLEAR MG-[address], [facility] GLUCOSE (U) NEGATIVE NEGATIVE MG/DL [id number], [facility] BILIRUBIN (U) NEGATIVE NEGATIVE MG-[address], [facility] KETONES MG/DL (U) NEGATIVE NEGATIVE MG/DL MG-[id number], [facility] SPECIFIC GRAVITY (U) >=1.030 1.001 - 1.035 MG-[address], [facility] BLOOD (U) NEGATIVE NEGATIVE MG-[address], [facility] U PH 5.0 5.0 - 9.0 MG-[address], [facility] PROTEIN (U) NEGATIVE NEGATIVE mg/dL MG-[address], [facility] UROBILINOGEN 0.2 0.2 - 1.0 EU/dL = mg/dL [id number], [facility] NITRITES NEGATIVE NEGATIVE MG/DL [id number], [facility] LEUKOCYTES (U) 1+ (SMALL)(A) NEGATIVE MG-[id number], [facility] URINE SPECIMEN OBTAINED BY CLEAN CATCH PROCEDURE / Unknown 08/30/2023 Prakash MARTÍNEZ URINE ORDERABLES Final Resul t Performing Organization Address City/State/[facility] Co de Phone Number -[phone], [place] [address] [place] [address], documented in this encounter Visit Diagnoses Diagnosis Flank pain- Primary Abdominal pain, unspecified site Acute cystitis without hematuria Acute cystitis Flank pain Abdominal pain, unspecified site documented in this encounter Additional Health Concerns Assessment Noted Time PHQ-9 Depression Total Score: 2 05/27/20 22 11:36 AM CDT documented as of this encounter Care Teams Machine Assembler For Puller Over Relationship Specialty [place] [address] [place] [address] PCP - General FAMILY PRACTICE 03/01/23 documented as of this encounter
--- OUTSIDE RECORDS SUMMARY | 2024-11-13 17:11 | XMS_ITS | Encounter Summary ---
Author Organization [facility] Address [address] [place] [address]. [place] [address] [place] [address] Care Team Providers Care Senior Mechanical Engineer Name Role Phone Dayanara Plaza MD Primary Care Provider [phone] Perez Cervantes MD Unavailable Adriana Ma MD Unavailable [phone] Encounter Details Date Type Department Care Team (Latest Contact Info) Description 05/11/2024 Travel Social History Tobacco Use Types Packs/Day [...] Recorded Patient Health Questionnaire-2 Score 0 04/03/2024 Education Answer Date Recorded What is the highest level of school you have completed or the highest degree you have received? Master's degree (e.g., MA, MS, Howard, MEd, MELT HELPER, KEKE) 12/21/2018 Comments No Sex and Gender [...] st Contact Info) Description 11/14/2024 8:00 AM EMPLOYEE RELATION MANAGER Office Visit [facility] Mult[facility]pecialty Care - [facility] 3 [facility], [address] [place] [address] Montserrat Oliver NP 3 [facility] [address] [place] [address] 12/06/2024 9:30 AM EMPLOYEE RELATION MANAGER Appointment [facility] Open MRI [address] [place] [address] [place] [address] [place] [address] 03/02/2025 3:20 PM CDT Office Visit [facility] Family & Internal Medicine - [place] [address] [place] [phone] [place] [address] [facility] [place] [address] documented as of this encounter Visit Diagnoses Not on filedocumented in this encounter Additional Health Concerns Assessment Noted Time PHQ-9 Depression Total Score: 0 04/03/20 24 10:56 AM CDT documented as of this encounter Care Teams Senior Mechanical Engineer Relationship Specialty Start Date End Date Dayanara Plaza MD [address] [place] [address] Ave[address] [place] [address] PCP - General FAMILY PRACTICE 03/01/23 Perez Cervantes MD [address] DIV [place] [phone] RHEUMATOLOGY 09/02/23 Adriana Ma MD [address] [place] [address] Referring Physician ALLERGY 09/02/23 documented as of this encounter
--- OUTSIDE RECORDS SUMMARY | 2024-11-13 17:11 | XMS_ITS | Encounter Summary ---
Author Organization [facility] Address [address] [place] [address]. [place] [address] [place] [address] Care Team Providers Care Ux Designer Name Role Phone Dayanara Plaza MD Primary Care Provider Perez Cervantes MD Unavailable Adriana Ma MD Unavailable [phone] Reason for Visit * Reason Comments ECG (SCAN) Encounter Details Date Type Department Care Team (Latest Contact Info) Description 09/01/2023 Scan HEALTH INFO [facility] Scanned, Doc Med Group ECG (SCAN) Social History Tobacco Use Types Packs/Day Years [...] Master's degree (e.g., MA, MS, Howard, MEd, PUNCH OUT CREW MEMBER, KEKE) 12/21/2018 Comments No Sex and Gender [...] st Contact Info) Description 11/14/2024 8:00 AM INDUSTRIAL MACHINE OPERATOR Office Visit [facility] Multispecialty Care - [facility] [address] [facility] [address], [address] [place] [address] Montserrat Oliver NP 3 [facility] [address] [place] [address] 12/06/2024 9:30 AM INDUSTRIAL MACHINE OPERATOR Appointment [facility] Open MRI [address] [place] [address] [place] [address] [place] [phone] 03/02/2025 3:20 PM CDT Office Visit [facility] Family & Internal Medicine - [address] [address] [place] [address] [place] [phone] documented as of this encounter Procedures Procedure Name Priority Date/Time Associated Diagnosis Comments ECG GENERIC (SCAN ORDER) 09/01/2023 documented in this encounter Results * ECG GENERIC (09/01/2023) 09/01/2023 us Doc Med [facility] Scanned SCANNING Final Resu lt documented in this encounter Visit Diagnoses Not on filedocumented in this encounter Additional Health Concerns Assessment Noted Time PHQ-9 Depression Total Score: 2 05/27/20 22 11:36 AM CDT documented as of this encounter Care Teams Ux Designer Relationship Specialty [place] [address] [facility]. [address] [place] [address] PCP - General FAMILY PRACTICE 03/01/23 Perez Cervantes MD [address] [phone] RHEUMATOLOGY 09/02/23 Adriana Ma MD [address] [place] [phone] Referring Physician ALLERGY 09/02/23 documented as of this encounter
--- OUTSIDE RECORDS SUMMARY | 2024-11-13 17:11 | XMS_ITS | Encounter Summary ---
Author Organization [facility] Address [address] [place] [address]. [place] [address] [place] [address] Care Team Providers Care Plastic Cutter Name Role Phone Dayanara Plaza MD Primary Care Provider [phone] Perez Cervantes MD Unavailable Adriana Ma MD Unavailable [phone] Encounter Details Date Type Department Care Team (Latest Contact Info) Description 01/27/2024 Travel Social History Tobacco Use Types Packs/Day [...] Master's degree (e.g., MA, MS, Howard, MEd, ALL SOURCE COLLECTION MANAGER, KEKE) 12/21/2018 Comments No Sex and [...] st Contact Info) Description 11/14/2024 8:00 AM PARQUETRY FLOOR LAYER Office Visit [facility] Multispecialty Care - [facility] 3 [facility], [address] [place] [address] Montserrat Oliver NP 3 [facility] [address] [place] [address] 12/06/2024 9:30 AM PARQUETRY FLOOR LAYER Appointment [facility] Open MRI [address] [place] [address] [place] [address] [address] [place] [address] 03/02/2025 3:20 PM CDT Office Visit [facility] Family & Internal Medicine - [place] [address] [place] [phone] [place] [address] [facility] [address] [place] [address] documented as of this encounter Visit Diagnoses Not on filedocumented in this encounter Additional Health Concerns Assessment Noted Time PHQ-9 Depression Total Score: 2 05/27/20 22 11:36 AM CDT documented as of this encounter Care Teams Plastic Cutter Relationship Specialty Start Date End Date Dayanara Plaza MD [address] [place] [address] Ave[address] [place] [address] PCP - General FAMILY PRACTICE 03/01/23 Preez Cervantes MD [address] [place] [phone] RHEUMATOLOGY 09/02/23 Adriana Ma MD [address] [place] [address] Referring Physician ALLERGY 09/02/23 documented as of this encounter
--- OUTSIDE RECORDS SUMMARY | 2024-11-13 17:11 | XMS_ITS | Encounter Summary ---
Author Organization [facility] Address [address] [place] [address]. [place] [address] [place] [address] Care Team Providers Care Globe Cleaner Name Role Phone Dayanara Plaza MD Primary Care Provider [phone] Perez Cervantes MD Unavailable Adriana Ma MD Unavailable [phone] Encounter Details Date Type Department Care Team (Late st Contact Info) Description 09/02/2023 Emgo Message Enc [facility] Group Family & Internal Medicine [facility] [address] [place] [phone] Dayan[place] Plaza [place] [address] [place] [address]. 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 No acute abnormality. Okay to send office visit, with EKG and preop form. thanks * Molly Perez RN - 09/02/2023 2:12 PM CDT I see a report on the EKG but looks like it may not be complete documented in this encounter Plan of Treatment Upcoming Encounters Date Type Department Care Team (Late st Contact Info) Description 11/14/2024 8:00 AM SHIPPING SUPPORT CLERK Office Visit [facility] Multispecialty Care - [facility] 3 [facility], [address] [place] [phone] Montserrat Oliver NP 3 [facility] [address] [place] [address] 12/06/2024 9:30 AM SHIPPING SUPPORT CLERK Appointment [facility] Open MRI [address] [place] [address] [place] [address] [address] [place] [address] 03/02/2025 3:20 PM CDT Office Visit [facility] Medical Group Family & Internal Medicine - [place] [address] [place] [address] [place] [address] [facility] [address] [place] [address] documented as of this encounter Visit Diagnoses Not on filedocumented in this encounter Additional Health Concerns Assessment Noted Time PHQ-9 Depression Total Score: 2 05/27/20 22 11:36 AM CDT documented as of this encounter Care Teams Globe Cleaner Relationship Specialty [place] [address] [facility] [address] [place] [address] PCP - General FAMILY PRACTICE 03/01/23 Perez Cervantes MD [address] [place] [phone] RHEUMATOLOGY 09/02/23 Adriana Ma MD [address] [place] [address] Referring Physician ALLERGY 09/02/23 documented as of this encounter
--- OUTSIDE RECORDS SUMMARY | 2024-11-13 17:11 | XMS_ITS | Encounter Summary ---
Author Organization [facility] Address [address] [place] [address]. [place] [address] [place] [address] Care Team Providers Care Meat Sales And Storage Manager Name Role Phone Dayanara Plaza MD Primary Care Provider [phone] Perez Cervantes MD Unavailable Adriana Ma MD Unavailable [phone] Reason for Visit * Auth/Cert (Routine) Specialty Diagnoses / Procedures Referred By Chalino t Referred To Contact Diagnoses PLANTAR FASCITIS Procedures ENDOSCOPIC PLANTAR FASCIA RELEASE RIGHT FOOT Riley Thompson, IHSAN [address] [facility] [address] [place] [address] Phone: tel: fax: Referral ID Status Reason Start Date Expiration Date Visits Re quested Visits Authorized [id number] 1 1 Encounter Details Date Type Department Care Team (Late st Contact Info) Description 09/10/2023 10:46 AM CDT Anesthesia Event [facility] OR [address] [place] [address] Osiel Sahu MD [address] [facility] [address] [facility] [id number] [place], [place] [id number] (Work) Hilaria Powers CNP [address] [place] [address] Anesthesia Record Procedure Summary Procedure Name Responsible Anesthesiologist Anesthesia Start Time Anesthesia Stop Time ENDOSCOPIC PLANTAR FASCIA RELEASE RIGHT FOOT (Right: Foot) Osiel Sahu MD 09/10/23 1046 09/10/23 1119 Events Date Time Event Comment 09/10/2023 0845 0845 AN Anesthesia Prepped 1046 An Start Patient ID and consent checked and patient reassessed. 1046 An Start Data 1046 Quick Note ANIYAH Garcia introduced to the patient and the patient verbally consents for the SRNA to participate in all appropriate aspects of perioperative care under the direct supervision of the STICK FEEDER. STICK FEEDER remains present for continuous supervision of the SRNA and maintains responsibility for documentation. 1047 Preoxygenation 1049 An Induction The patient was reevaluated immediately before moderate or deep sedation use and before anesthesia induction. 1051 An LMA 1057 Anesthesia Ready 1104 Quick Note Tourniquet up P S. 250mmHg 1111 Quick Note Tourniquet down PS. 1111 An Emergence 1118 LMA Removed 1118 Face Mask Applied 1118 an stop data 1118 Post Anesthetic Care Handoff I completed my handoff to the receiving nurse during which we: 1. Identified the patient 2. Identified the responsible provider 3. Reviewed the pertinent medical history 4. Discussed the surgical course 5. Reviewed intra-op anesthesia management and issues during anesthesia 6. Set expectations for post-procedure period 7. Allowed opportunity for questions and acknowledgement of understanding. 1119 An Stop Meds Name Total propofol (DIPRIVAN) 200 mg/20 mL injecti on 200 mg ondansetron (ZOFRAN) 4 mg/2 mL injection 4 mg fentaNYL (SUBLIMAZE) 100 mcg/2 mL inject ion 50 mcg ceFAZolin (ANCEF) 2 g in NS 100 mL IVPB 2 g dexamethasone (DECADRON) injection 4 mg glycopyrrolate (ROBINUL) injection 0.2 m g lactated ringers infusion 0 mL * Agents Name O2 Air Inspired Sevoflurane Sevoflurane * Blood No blood administrations on file. Lines, Drains, and Airways Type Details Placement Removal Peripheral IV Placement Date: 08/16 06/06; Placement Time: 0908; Placed Outside of This Facility?: No; Size: 20 G; Orientation: Right; Location: Wrist; Site Prep: Chlorhexidine; Local Anesthetic: None; Insertion attempts: 1; Ultrasound-guided Placement?: No; Patient Tolerance: Tolerated well; Removal Date: 09/10/23; Removal Time: 1245; Removal Reason: Patient Discharged 09/10/23 0908 by Asmita Donaldson RN 09/10/23 1245 by Allyson George RN Supraglottic Airway Placement Date: 08/16 06/06; Placement Time: 1051; Airway Device: LMA; LMA Size: 4; Placed Outside of This Facility?: No; Placed By: SRNA; Style: Other (IGel); Insertion Attempts:1; Breath Sounds:Clear bilaterally; Placement Verified By: Capnography, Auscultation, Chest Rise; Extubation Assessment: Tolerated well, Patient spontaneously breathing, Deep breathes w/equal chest movements, Able to swallow, Atraumatic; Removal Date: 09/10/23; Removal Time: 1118; Removal Person: Other (Comment) (SRNA); Removal Reason: End of Case 09/10/23 1051 by Efren Gunter CRNA 09/10/23 1118 by Efren Gunter CRNA Surgical/Incision 09/10/23; 1100; Heel ; Right, Medial, Lateral; 09/10/23; 1245; Other(Comment) (dc) 09/10/23 1100 by Denise Lan RN 09/10/23 1245 by Allyson George RN Surgical/Incision 09/10/23; 1139; Surg ical Wound; Foot; Right, Medial, Lateral; sutures, adapitc, kerllix roll, coban around foot; 09/10/23; 1245; Other(Comment) (dc) 09/10/23 1139 by Linda Landa RN 09/10/23 1245 by Allyson George RN documented in this encounter Social History Tobacco [...] Master's degree (e.g., MA, MS, Howard, MEd, CARRIAGE OPERATOR, KEKE) 12/21/2018 Comments No Sex and Gender Information Value Date Recorded Sex Assigned at Not on file Legal Sex Female 8:16 PM CDT Gender Identity Not on file Sexual Orientation Not on file 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 file documented as of this encounter OR Notes * Anesthesia Postprocedure Evaluation - Osiel Sahu MD - 09/10/2023 11:51 AM CDT [facility] Procedure(s): ENDOSCOPIC PLANTAR FASCIA RELEASE RIGHT FOOT (Right: Foot) Anesthesia type: general Vitals: 09/10/23 1145 BP: 111/64 Vitals: 09/10/23 1145 Pulse: 72 Vitals: 09/10/23 1145 Resp: 15 Vitals: 09/10/23 1120 Temp: 37 ??C Vitals: 09/10/23 1145 SpO2: 97% Patient Location: Phase II/Outpatient Level of Consciousness: awake, alert and oriented Pain Management: adequate analgesia Airway Patency: patent Respiratory Status: spontaneous ventilation, unassisted, room air and acceptable Cardiovascular Status: hemodynamically stable Post-Op Nausea: none Postoperative Hydration: euvolemic No notable events documented. * Anesthesia Postprocedure Evaluation - Osiel Sahu MD - 09/10/2023 11:41 AM CDT [facility] Procedure(s): ENDOSCOPIC PLANTAR FASCIA RELEASE RIGHT FOOT (Right: Foot) Anesthesia type: general Vitals: 09/10/23 1145 BP: 111/64 Vitals: 09/10/23 1145 Pulse: 72 Vitals: 09/10/23 1145 Resp: 15 Vitals: 09/10/23 1120 Temp: 37 ??C Vitals: 09/10/23 1145 SpO2: 97% Patient Location: PACU Level of Consciousness: awake and oriented Pain Management: adequate analgesia Airway Patency: patent Respiratory Status: spontaneous ventilation and unassisted Cardiovascular Status: hemodynamically stable Post-Op Nausea: none Postoperative Hydration: euvolemic No notable events documented. * Anesthesia Postprocedure Evaluation - Osiel Sahu MD - 09/10/2023 11:34 AM CDT Anesthesia Post-op Note [facility] Procedure(s): ENDOSCOPIC PLANTAR FASCIA RELEASE RIGHT FOOT (Right: Foot) Anesthesia type: general Vitals: 09/10/23 1130 BP: 108/63 Vitals: 09/10/23 1130 Pulse: 74 Vitals: 09/10/23 1130 Resp: 13 Vitals: 09/10/23 1120 Temp: 37 ??C Vitals: 09/10/23 1130 SpO2: 100% Patient Location: PACU Level of Consciousness: awake and oriented Pain Management: adequate analgesia Airway Patency: patent Respiratory Status: spontaneous ventilation and unassisted Cardiovascular Status: hemodynamically stable Post-Op Nausea: none Postoperative Hydration: euvolemic No notable events documented. * Anesthesia Preprocedure Evaluation - Osiel Sahu MD - 09/10/2023 8:30 AM CDT Images from the original note were not included. Anesthesia ROS/MED History Reviewed: Patient summary , ECG, Family history anesthesia, Anesthesia history , Medications , Labs Pre-Anesthetic State: Comment: Tendency to get motion sickness history of anesthetic complications Pulmonary neg pulmonary ROS Cardiovascular Neuro/Psych (+) depression, anxiety Comments: Vesovegal syncopy- traffic division commanding officer evaluated no indication for stress test, normal ekg Substance Use no history of substance abuse GI/Hepatic/Renal (+) GERD, (well controlled) Comments: IBS Endo/Other (+) arthritis, (rheumatoid) Comments: polyarteritis GENERAL COMMENTS 09/06 EKG- nsr NPO Status: Physical Evaluation Airway Mallampati: I TM Distance: >3 FB Neck ROM: normal Dental Pulmonary Pulmonary exam normal Cardiovascular Rhythm: regular Rate: normal (-) murmur STOP-Bang Assessment: Do you snore loudly?: 0 Do you often feel tired or fatigued after your sleep?: 0 Has anyone ever observed you stop breathing in your sleep?: 0 Do you have or are you being treated for high blood pressure?: 0 Recent BMI (Calculated): 24.8 Is BMI greater than 35 kg/m2?: 0=No Age older than 50 years old?: 1=Yes Is your neck circumference greater than 17 inches (Male) or 16 inches (Female)?: 0 Gender - Male: 0=No STOP-Bang Total Score: 1 Anesthesia Plan ASA 1 Intravenous Induction Anesthesia type: general Plan for Airway: LMA Plan for Post-op Pain Plan: oral pain medication, IV analgesics and as per surgeon Discussed potential risks of General Anesthesia including but not limited to corneal abrasion, visual impairment or visual loss, mouth injury, dental damage, sore throat, hoarseness, esophageal injury, awareness under anesthesia, nerve injury due to positioning, aspiration, pneumonia, stroke, cardiac event, adverse drug reactions and . Patient understands risks, benefits and alternatives andwishes to proceed. All questions answered. Scop patch ordered, needs n/v prophylaxis Informed Consent Anesthetic plan and risks discussed with patient of whom consent was obtained. . documented in this encounter Plan of Treatment Upcoming Encounters Date Type Department Care Team (Late st Contact Info) Description 11/14/2024 8:00 AM CRANBERRY FARM SUPERVISOR Office Visit [facility] Multispecialty Care - [facility] [address] [facility], [address] [place] [phone] Montserrat Oliver NP 3 [facility] [address] [place] [address] 12/06/2024 9:30 AM CRANBERRY FARM SUPERVISOR Appointment [facility] [address] [place] [address] [place] [address] [place] [address] 03/02/2025 3:20 PM CDT Office Visit [facility] Family & Internal Medicine - [place] [address] [place] [address] [place] [address] [place] [address] documented as of this encounter Visit Diagnoses Not on filedocumented in this encounter Administered Medications Inactive Administered Medications - up to 3 most recent administrations Medication Order MAR Action Action Date Dose Rate Site ceFAZolin (ANCEF) 2 g in NS 100 mL IVPB 2 g, Intravenous, at 200 mL/hr, fighting vehicle systems maintainer to O.R., 1 dose, First dose on Wed09/10/23 at 0815, Pre-OpIndications:Plantar fasciitis Given 09/10/2023 10:52 AM CDT 2 g dexamethasone (DECADRON) injection Intravenous, PRN, Starting on Wed09/10/23 at 1102, Until Wed09/10/23 at 1119, Anesthesia Intra-Op Given 09/10/2023 11:02 AM CDT 4 mg fentaNYL (SUBLIMAZE) injection Intravenous, PRN, Starting on Wed09/10/23 at 1049, Until Wed09/10/23 at 1119, Anesthesia Intra-Op Given 09/10/2023 10:49 AM CDT 50 mcg glycopyrrolate (ROBINUL) injection Intravenous, PRN, Starting on Wed09/10/23 at 1109, Until Wed09/10/23 at 1119, Anesthesia Intra-Op Given 09/10/2023 11:09 AM CDT 0.2 mg lactated ringers infusion Intravenous, Continuous PRN, Starting on Wed09/10/23 at 1046, Until Wed09/10/23 at 1119, Anesthesia Intra-Op New Bag 09/10/2023 10:46 AM CDT 50 m L/hr ondansetron (ZOFRAN) injection Intravenous, PRN, Starting on Wed09/10/23 at 1109, Until Wed09/10/23 at 1119, Anesthesia Intra-Op Given 09/10/2023 11:09 AM CDT 4 mg propofol (DIPRIVAN) IV bolus Intravenous, PRN, Starting on Wed09/10/23 at 1049, Until Wed09/10/23 at 1119, Anesthesia Intra-Op Given 09/10/2023 10:49 AM CDT 200 mg documented in this encounter Additional Health Concerns Assessment Noted Time PHQ-9 Depression Total Score: 2 05/27/20 22 11:36 AM CDT documented as of this encounter Care Teams Meat Sales And Storage Manager Relationship Specialty [place] [address] [facility] [address] [place] [address] PCP - General FAMILY PRACTICE 03/01/23 Perez Cervantes MD [address] [place] [id number] RHEUMATOLOGY 09/02/23 Adriana Ma MD [address] [place] [address] Referring Physician ALLERGY 09/02/23 documented as of this encounter
--- OUTSIDE RECORDS SUMMARY | 2024-11-13 17:11 | XMS_ITS | Encounter Summary ---
Author Organization [facility] Address [address] [place] [address]. [place], [place] [address] [place] [address] Care Team Providers Care Wireless Cellular Technician Name Role Phone Izzy Plaza MD Primary Care Provider [phone] Encounter Details Date Type Department Care Team (Latest Contact Info) Description 09/01/2023 11:30 AM CDT - 09/01/2023 11:59 PM T Hospital Encounter [facility] [address] [place] [address] [place] [address] 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 05/30/2014 fexofenadine (PIYUSH) 180 MG tablet Take 1 tablet (180 mg total) by mouth daily. methotrexate 2.5 MG tablet Take by mouth once a week. Take 6 tablets every 7 days. 06/06/2018 valACYclovir 1 g tablet as needed. 10/10/2019 ALPRAZolam (XANAX) 0.25 MG tabletIndications: Anxiety Take 1 tablet (0.25 mg total) by mouth nightly as needed for Anxiety. 30 tablet 03/03/2023 4 Ascorbic Acid (VITAMIN C) 100 MG tablet Take 1 tablet (100 mg total) by mouth daily. 4 busPIRone (BUSPAR) 15 MG tabletIndications: DURAN (generalized anxiety disorder) TAKE 1 TABLET (15 MG TOTAL) BY MOUTH 2 (TWO) TIMES DAILY. 180 tablet 1 05/30/2023 3 citalopram (CELEXA) 20 MG tabletIndications: DURAN (generalized anxiety disorder) TAKE 1 TABLET BY MOUTH DAILY 30 tablet 06/21/2023 3 dicyclomine (BENTYL) 20 MG tabletIndications: Irritable bowel syndrome with both constipation and diarrhea Take 1 tablet (20 mg total) by mouth every 6 (six) hours as needed. 120 tablet 09/07/2022 3 folic acid (FOLVITE) 1 MG tablet Take 1 tablet (1 mg total) by mouth daily. 4 montelukast (SINGULAIR) 10 MG tabletIndications: Seasonal allergies TAKE 1 TABLET (10 MG TOTAL) BY MOUTH DAILY. 90 tablet 08/20/2023 3 multivitamin tablet Take 2 tablets by mouth daily. 4 nabumetone 500 MG tablet Take 2 tablets (1,000 mg total) by mouth 2 (two) times daily. 11/24/2021 4 Flushing-3 Fatty Acids (FISH OIL) 1200 MG Cap Take 1 capsule by mouth daily. 4 polyethylene glycol packet Take 240 mLs (1 packet total) by mouth daily as needed. 4 documented as of this encounter Plan of Treatment Upcoming Encounters Date Type Department Care Team (Late st Contact Info) Description 11/14/2024 8:00 AM POLE TRUCK DRIVER Office Visit [facility] Multispecialty Care - [facility] 3 [facility], [address] [place] [phone] Montserrat Oliver NP 3 [facility] [address] [place] [address] 12/06/2024 9:30 AM POLE TRUCK DRIVER Appointment [facility] [address] [place] [address] [place] [address] [facility] [place] [address] 03/02/2025 3:20 PM CDT Office Visit [facility] Family & Internal Medicine - [address] [phone] [place] [address] [place] [address] documented as of this encounter Procedures Procedure Name Priority Date/Time Associated Diagnosis Comments ECG 12-LEAD Routine 09/01/2023 11:48 AM CDT Preop examination Plantar fasciitis of right foot Hypotension due to hypovolemia documented in this encounter Results * ECG 12 lead (Hosp Performed) (09/01/2023 11:48 AM CDT) 09/01/2023 11:4 8 AM CDT Narrative [facility] RAD - 09/04/2023 10:13 AM CDT ?[facility] ? Test Date: ?2023-09-01 Pat Name: ? HANS PASCUAL ? Department: ?? 85 ? Room: ? Gender: ? Female ? Medical Lab Assistant: ?? : ?1965 ? Requested By: IZZY PLAZA Order Number: [id number] ? Reading MD: ?? Clement Young ? Measurements Intervals ?Celestine ? Rate: ? 65 ? P: ?75 ND: ? 194 ?QRS: ?69 QRSD: ? 90 ? T: ?56 QT: ? 375 ? QTc: ?391 ? Interpretive Statements SINUS RHYTHM No previous ECG available for comparison Procedure Note Clement Young MD - 09/04/2023 [facility] Test Date: 2023-09-01 Pat Name: [facility] Department: 85 Room: Gender: Female Medical Lab Assistant: : 1965 Requested By: IZZY PLAZA Order Number: [id number] Reading MD: Clement Young Measurements Intervals Celestine Rate: 65 P: 75 ND: 194 QRS: 69 QRSD: 90 T: 56 QT: 375 QTc: 391 Interpretive Statements SINUS RHYTHM No previous ECG available for comparison us Izzy Plaza MD ECG ORDERABLES Final Result [facility] RAD documented in this encounter Visit Diagnoses Diagnosis Preop examination Preoperative examination, unspecified Plantar fasciitis of right foot Plantar fascial fibromatosis Hypotension due to hypovolemia documented in this encounter Additional Health Concerns Assessment Noted Time PHQ-9 Depression Total Score: 2 05/27/20 22 11:36 AM CDT documented as of this encounter Care Teams Wireless Cellular Technician Relationship Specialty [place] [address] [facility] [address] [place] [address] PCP - General FAMILY PRACTICE 03/01/23 documented as of this encounter
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
--- OUTSIDE RECORDS SUMMARY | 2024-11-13 17:11 | XMS_ITS | Encounter Summary ---
Author Organization [facility] Address [address] [place] [address]. [place] [address] [place] [address] Care Team Providers Care Document Analyst Name Role Phone Izzy Plaza MD Primary Care Provider [phone] Perez Cervantes MD Unavailable Adriana Ma MD Unavailable [phone] Reason for Referral * Imaging (Routine) - Pending Review Specialty Diagnoses / Procedures Referred By Contac t Referred To Contact RADIOLOGY Diagnoses Encounter for osteoporosis screening in asymptomatic postmenopausal patient Procedures BONE D[place] [address] [address] [place] [address] Phone: tel: fax: Referral ID Status Reason Start Date Expiration Date V isits Requested Visits Authorized [id number] Pending Review 01/17/2024 02/15/2025 1 1 CONTROL SERVICE TECHNICIAN Encounter Details Date Type Department Care Team (Latest Contact Info) Description 01/16/2024 NETpeast Message Enc [facility] Medical Group Family & Internal Medicine [address] [phone] [place] [address] 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 Will start screening early. Okay to order screening DEXA. Diagnosis in CONTROL SERVICE TECHNICIAN * Luna Miranda NP - 01/17/2024 9:00 AM CST Ok to order DEXA? CONTROL SERVICE TECHNICIAN documented in this encounter Plan of Treatment Upcoming Encounters Date Type Department Care Team (Late st Contact Info) Description 11/14/2024 8:00 AM PEST CONTROL SERVICE TECHNICIAN Office Visit [facility] Multispecialty Care - [facility] [address] [facility], [address] [place] [phone] Montserrat Oliver NP [address] [facility] [address] [place] [address] 12/06/2024 9:30 AM PEST CONTROL SERVICE TECHNICIAN Appointment [facility] Open MRI [address] [place] [address] [place] [address] [facility] [employer]. [address] [place] [phone] 03/02/2025 3:20 PM CDT Office Visit [facility] Family & Internal Medicine - [address] [phone] [place] [address] [place] [phone] documented as of this encounter Results * BONE DENSITY/DEXA (01/27/2024 3:03 PM CDT) Anatomical Region Laterality Modality Bone Bone Density 01/29/2024 5:42 AM CDT Impressions 01/29/2024 5:43 AM CDT IMPRESSION: WHO Classification: osteopenia. FRAX: 0.4% chance of hip fracture and 7.3% chance of major osteoporotic fracture over the next 10 years. Referred By: IZZY PLAZA Interpreted By: Emmanuel Oneill MD, 01/29/2024 5:42 AM Narrative 01/29/2024 5:43 AM CDT Examination: Bone Density Axial Exam Date/Time: 01/27/2024 2:48 PM Reason For Exam: Encounter for osteoporosis, screening and asymptomatic postmenopausal patient Comparison: None Findings: ??DEXA bone densitometry ?The bone mineral density (BMD) was determined by dual-energy x-ray absorptiometry, the results are as follows: ?AP Lumbar Spine L1 through L4 ?BMD Patient (/SQ): 0.938 ?T-Score (Standard deviations from young adult peak bone density): -1.0 ?Right femoral neck: ?BMD Patient (/SQ): 0.735 ?T-Score (Standard deviations from young adult peak bone density): -1.0 ? Total Right femur: ?BMD Patient (/SQCM): 0.812 ? T-Score (Standard deviations from young adult peak bone density): -1.1 Recommendations: All patients should ensure an adequate intake of dietary calcium and vitamin D. The NOF recommend adults under the age of 50 need 1000 mg of calcium and 400-800 IU of vitamin D daily. Effective therapy for the prevention and treatment of osteoporosis include biphosphonates. Follow-up: People with diagnosed cases of osteoporosis or at high risk for fracture should have regular bone mineral density test. For patients eligible for Medicare, routine testing is allowed once every 2 years. Testing frequency can be increased to one year for patients who have rapidly progressing disease, those who are receiving or discontinuing medical therapy to restore bone mass, or have additional risk factors. Procedure Note Emmanuel Oneill MD - 01/29/2024 Examination: Bone Density Axial Exam Date/Time: 01/27/2024 2:48 PM Reason For Exam: Encounter for osteoporosis, screening and asymptomatic postmenopausalpatient Comparison: None Findings: DEXA bone densitometry The bone mineral density (BMD) was determined bydual-energy x-ray absorptiometry, the results are as follows: AP Lumbar Spine L1 through L4 BMD Patient (GM/SQCM): 0.938 T-Score (Standard deviations from young adult peak bonedensity): -1.0 Right femoral neck: BMD Patient (GM/SQCM): 0.735 T-Score (Standard deviations from young adult peak bonedensity): -1.0 Total Right femur: BMD Patient (GM/SQCM): 0.812 T-Score (Standard deviations from young adult peak bonedensity): -1.1 Recommendations: All patients should ensure an adequate intake of dietary calcium andvitamin D. The NOF recommend adults under the age of 50 need 1000 mg ofcalcium and 400-800 IU of vitamin D daily. Effective therapy for theprevention and treatment of osteoporosis include biphosphonates. Follow-up: People with diagnosed cases of osteoporosis or at high risk for fractureshould have regular bone mineral density test. For [facility] eligible [facility], routine testing is allowed once every 2 years. Testing frequencycan be increased to one year for patients who have rapidly progressingdisease, those who are receiving or discontinuing medical therapy torestore bone mass, or have additional risk factors. IMPRESSION: WHO Classification: osteopenia. FRAX: 0.4% chance of hip fracture and 7.3% chance of major osteoporoticfracture over the next 10 years. Referred By: IZZY PLAZA Interpreted By: Emmanuel Oneill MD, 01/29/2024 5:42 AM Izzy Plaza MD DEXA Final Result documented in this encounter Visit Diagnoses Diagnosis Encounter for osteoporosis screening in asymptomatic postmenopausal patient- Primary Encounter for osteoporosis screening in asymptomatic postmenopausal patient documented in this encounter Additional Health Concerns Assessment Noted Time PHQ-9 Depression Total Score: 2 05/27/20 22 11:36 AM CDT documented as of this encounter Care Teams Document Analyst Relationship Specialty [place] [address] [facility] [place] [address] PCP - General FAMILY PRACTICE 03/01/23 Perez Cervantes MD [address] [place] [phone] RHEUMATOLOGY 09/02/23 Adriana Ma MD [address] [place] [address] Referring Physician ALLERGY 09/02/23 documented as of this encounter
--- OUTSIDE RECORDS SUMMARY | 2024-11-13 17:11 | XMS_ITS | Encounter Summary ---
Author Organization [facility] Address [address] [place] [address]. 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 [place] [id number] 03/02/2025 3:20 PM CDT Office Visit [facility] Family & Internal Medicine - [place] [id number] [place] [phone] [place] [address] [facility] [address] [place] [phone] documented as of this encounter Visit Diagnoses Not on filedocumented in this encounter Additional Health Concerns Assessment Noted Time PHQ-9 Depression Total Score: 0 04/03/20 24 10:56 AM CDT documented as of this encounter Care Teams Cotton Stomper Relationship Specialty Start Date End Date Dayanara Plaza MD [address] [place] [address] [address] [place] [id number] PCP - General FAMILY PRACTICE 03/01/23 Perez Cervantes MD [address] [place] [phone] RHEUMATOLOGY 09/02/23 Adriana Ma MD [address] [place] [address] Referring Physician ALLERGY 09/02/23 documented as of this encounter
--- OUTSIDE RECORDS SUMMARY | 2024-11-13 17:11 | XMS_ITS | Encounter Summary ---
Author Organization [facility] Address [address] [place] [address]. [place] [address] [place] [address] Care Team Providers Care County Manager Name Role Phone Dayanara Plaza MD Primary Care Provider [phone] Perez Cervantes MD Unavailable Adriana Ma MD Unavailable [phone] Reason for Referral * Imaging (Emergency) - New Request Specialty Diagnoses / Procedures Referred By Chalino t Referred To Contact RADIOLOGY Procedures CT ABD+PEL W IV CON ONLY García Garay DO [address] [place] [address] Phone: tel: fax: Referral ID Status Reason Start Date Expiration Date V isits Requested Visits Authorized [id number] New Request 05/23/2024 05/23/2025 1 1 Reason for Visit * Reason Comments Gi Problem Encounter Details Date Type Department Care Team (Late st Contact Info) Description 05/23/2024 1:03 AM CDT - 05/23/2024 6:10 AM CDT Emergency [facility] Emergency Room [id number] [place] [id number] García Garay DO [address] [place] [address] Gi Problem Discharge Disposition: Transfer to Acute Care Hospital Social History Tobacco Use Types Packs/Day Years [...] from your doctor or pharmacy? Never 05/23/2024 [facility] Utilities Answer Date Recorded In the past 12 months has e electric, gas, oil, or water [employer] threatened to shut off services in your [...] Recorded Patient Health Questionnaire-2 Score 0 04/03/2024 [facility] [place] of Occupat ional Health - Occupational Stress [...] in the past 12 m [facility], were you homeless or living in a alf (including now)? No 05/23/2024 Education Answer Date Recorded What is the highest level of school you have completed or the highest degree you have received? Master's degree (e.g., MA, MS, Howard, MEd, [employer], [employer]) 12/21/2018 Comments No Sex and [...] Sign Reading Time Taken Comments Blood Pressure 125/79 05/23/2024 6:00 AM CDT Pulse 78 05/23/2024 6:00 AM CDT Temperature 36.6 ??C (97.9 ??F) 05/23/2024 6:00 AM CD T Respiratory Rate 13 05/23/2024 6:00 AM CDT Oxygen Saturation 94% 05/23/2024 6:00 AM CDT Inhaled Oxygen Concentration - - Weight 78.5 kg (173 lb 1 oz) 05/23/2024 1:07 AM CDT Height 172.7 cm (5' 8 ) 05/23/2024 1:07 AM CDT Body Mass Index 26.31 05/23/2024 1:07 AM CDT documented in this encounter Functional Status [...] BY MOUTH DAILY. 90 tablet 3 11/29/2023 valACYclovir 1 g tablet as needed. 10/10/2019 cefdinir (OMNICEF) 300 MG Cap capsule Take 1 capsule (300 mg total) by mouth 2 (two) times daily for 5 days. 10 capsule 05/21/2024 4 metroNIDAZOLE (FLAGYL) 500 MG tablet Take 1 tablet (500 mg total) by mouth 3 (three) times daily for 5 days. 15 tablet 05/21/2024 4 ondansetron (ZOFRAN-ODT) 8 MG disintegrating tablet Take [...] 05/11/2024 4 documented as of this encounter ED Notes * García Garay, - 05/23/2024 1:08 AM CDT Chief Complaint Chief Complaint Patient presents with Gi Problem History of Present Illness 59-year-old female presents to the emergency department for worsening abdominal pain, nausea, and vomiting. Patient states her symptoms started over the weekend. Reports vomiting abdominal pain worsened tonight. She has been taking Zofran to help with her symptoms. Patient does have a history of cho lecystectomy. States she has never had this type of pain in the past before. Medical History ALLERGIES: Review of patient's allergies indicates: Allergen Reactions Levofloxacin Nausea and Vomiting, Nausea Only, Hallucinations and Other (see comment) hallucinations Other reaction(s): Other hallucinations MEDICATIONS: Prior to Admission medications Medication Sig Start Date End Date Taking? Authorizing Provider cefdinir (OMNICEF) 300 MG Cap capsule Take 1 capsule (300 mg total) by mouth 2 (two) times daily for 5 days. 05/21/24 05/26/24 Yes Sam Gage MD clobetasol (TEMOVATE) 0.05 % ointment 10/26/23 Yes Default History Genericprovider dicyclomine (BENTYL) 20 MG tablet Take 1 tablet (20 mg total) by mouth every 6 (six) hours as needed. 05/11/24 Yes Dayanara Plaza MD estradiol (ESTRACE) 0.1 MG/GM vaginal cream 10/26/23 Yes Default History Genericprovider etanercept 50 MG/ML injection Inject 1 mL (50 mg total) into the skin weekly. 05/30/14 Yes [facility] fexofenadine (PIYUSH) 180 MG tablet Take 1 tablet (180 mg total) by mouth daily. Yes Default History Genericprovider metroNIDAZOLE (FLAGYL) 500 MG tablet Take 1 tablet (500 mg total) by mouth 3 (three) times daily for 5 days. 05/21/24 05/26/24 Yes Sam Gage MD montelukast (SINGULAIR) 10 MG tablet TAKE 1 TABLET (10 MG TOTAL) BY MOUTH DAILY. 11/29/23 Yes Dayanara Plaza MD ondansetron (ZOFRAN-ODT) 8 MG disintegrating tablet Take 1 tablet (8 mg total) by mouth every 8 (eight) hours as needed for Nausea. 05/22/24 Yes Hayley Ruano MD oxyCODONE-acetaminophen (PERCOCET) 5-325 MG tablet Take 1 tablet by mouth every 4 (four) hours as needed for Pain. Indications: Acute Pain < 3 Day Supply 05/21/24 Yes Sam Gage MD pantoprazole (PROTONIX) 40 MG packet Take 1 packet by mouth daily. 05/22/24 Yes Hayley Ruano MD traZODone (DESYREL) 100 MG tablet Take 1.5 tablets (150 mg total) by mouth nightly at bedtime. 05/11/24 Yes Dayanara Plaza MD valACYclovir 1 g tablet as needed. 10/10/19 Yes Doc [facility] ALPRAZolam (XANAX) 0.25 MG tablet Take 1 tablet (0.25 mg total) by mouth nightly as needed for Anxiety or Sleep. FOR ANXIETY 05/16/24 Dayanara Plaza MD methotrexate 2.5 MG tablet Take by mouth once a week. Take 6 tablets every 7 days. 06/06/18 Doc [facility] PAST MEDICAL HISTORY: Past Medical History: Diagnosis Date Anxiety Cataract surgery 2020 COVID-19 GERD (gastroesophageal reflux disease) Heart murmur IBS (irritable bowel syndrome) Inflammatory arthritis Plantar fasciitis RA (rheumatoid arthritis) ([facility]/HCC HHS/HCC) PAST SURGICAL HISTORY: Past Surgical History: Procedure Laterality Date CHOLECYSTECTOMY COLONOSCOPY N/A 03/17/2021 COLONOSCOPY-NORMAL performed by Niall Matute MD at [facility] GI COLONOSCOPY STOMA DX INCLUDING COLLJ SPEC SPX AH 9 yrs. EXTRACT ERUPT TOOTH wisdom teeth removal EYE SURGERY 2020 cataract extraction FOOT SURGERY Right 09/10/2023 LAMINECTOMY,LUMBAR SEPTOPLASTY FAMILY HISTORY: Family History Problem Relation Name Age of Onset COPD Mother Shirley Other (mva) Father SOCIAL HISTORY: Social History Tobacco Use Smoking status: Former Current packs/day: 0.00 Average packs/day: 0.3 packs/day for 10.0 years (2.5 ttl pk-yrs) Types: Cigarettes Start date: 11/15/1979 Quit date: 11/15/1989 Years since quittin.5 Passive exposure: Past Smokeless tobacco: Never Tobacco comments: off and on for 10 years from 84-94 with long periods of none at all Vaping Use Vaping status: Never Used Substance Use Topics Alcohol use: No Drug use: No Review of Systems Review of Systems Physical Exam Filed Vitals: 05/23/24 0107 05/23/24 0300 BP: 131/70 123/71 Pulse: 79 77 Resp: 22 23 Temp: 99.1 ??F (37.3 ??C) TempSrc: Temporal SpO2: 100% 100% Weight: 78.5 kg (173 lb 1 oz) Height: 1.727 m (5' 8 ) Physical Exam Vitals and nursing note reviewed. Constitutional: Appearance: Normal appearance. HENT: Head: Normocephalic and atraumatic. Right Ear: External ear normal. Left Ear: External ear normal. Cardiovascular: Rate and Rhythm: Normal rate and regular rhythm. Pulses: Normal pulses. Heart sounds: Normal heart sounds. No murmur heard. Pulmonary: Effort: Pulmonary effort is normal. No respiratory distress. Breath sounds: Normal breath sounds. Abdominal: Tenderness: There is abdominal tenderness (diffuse). Musculoskeletal: General: No swelling or tenderness. Normal range of motion. Cervical back: No muscular tenderness. Skin: General: Skin is warm and dry. Neurological: General: No focal deficit present. Mental Status: She is alert and oriented to person, place, and time. Psychiatric: Behavior: Behavior normal. Diagnostic Studies / Procedures ELECTROCARDIOGRAMS: No results found for this visit on 05/23/24. LABORATORY STUDIES: Results for orders placed or performed during the hospital encounter of 05/23/24 CBC W/DIFF AUTOMATED Result Value Ref Range WBC 8.97 4.4 - 11.0 x10'3/uL RBC 4.11 (L) 4.50 - 5.10 x10'6/uL HGB 13.8 12.3 - 15.3 G/DL HCT 39.8 35.9 - 44.6 % MCV 96.8 (H) 80.0 - 96.0 FL MCH 33.6 (H) 25.3 - 30.9 PG MCHC 34.7 (H) 31.0 - 34.1 G/DL RDW 14.7 12.4 - 15.1 % PLT 245 151 - 353 x10'3/uL MPV 10.4 9.6 - 12.0 FL RBC MORPHOLOGY NORMAL PLT MORPH. NORMAL WBC MORPHOLOGY NORMAL LYMPHOCYTES 24.4 15.8 - 45.0 % NEUTROPHILS 64.1 42.1 - 71.9 % MONOCYTES 10.4 5.7 - 12.5 % EOSINOPHILS 0.6 0.0 - 5.6 % BASOPHILS 0.2 0.0 - 1.3 % ABS. NEUTROPHILS 5.75 1.40 - 6.00 x10'3/uL IMMATURE GRANS 0.3 0.0 - 0.5 % ABS. LYMPHOCYTES 2.19 0.80 - 4.70 x10'3/uL COMPREHENSIVE METABOLIC PANEL Result Value Ref Range GLUCOSE 112 (H) 70 - 99 MG/DL BUN 19 (H) 7 - 18 MG/DL CREATININE S/P/B 1.07 (H) 0.55 - 1.02 MG/DL SODIUM S/P/B 140 136 - 145 MMOL/L POTASSIUM S/P/B 3.6 3.5 - 5.1 MMOL/L CHLORIDE S/P/B 103 100 - 108 MMOL/L CO2 25.2 21 - 32 MMOL/L CALCIUM S/P/B 10.0 8.5 - 10.1 MG/DL BILIRUBIN TOTAL S/P/B 0.8 0.2 - 1.2 MG/DL TOTAL PROTEIN S/P/B 7.4 6.4 - 8.2 G/DL ALBUMIN S/P/B 3.4 3.4 - 5.0 G/DL AST 21 15 - 37 U/L ALT 24 14 - 55 U/L ALKALINE PHOSPHATASE S/P/B 103 50 - 136 U/L ANION GAP 11.8 5 - 15 MMOL/L BUN CREATININE RATIO 17.8 6 - 26 A/G RATIO 0.8 (L) 1.0 - 2.0 RATIO GFR ESTIMATE 59 (L) >90 ML/MIN/1.73 M2 LIPASE Result Value Ref Range LIPASE 46 16 - 77 UNITS/L IMAGING STUDIES CT ABD+PEL W IV CON ONLY Final Result by User, [id number] (05/23 030) CT of the abdomen and pelvis with contrast INDICATION: Diffuse abdominal pain. Comparison is 05/21/2024. TECHNIQUE: Axial, coronal and sagittal images from the lung bases through the pubic symphysis with intravenous contrast. Radiation dose reduction technique(s) were used. FINDINGS: There is a small right pleural effusion, new from the previous study. [...] By: Toney Blackmon MD, 05/23/2024 2:54 AM XR CHEST PORTABLE (Results Pending) ED Course / Medical Decision Making 3:23AM - discussed case with Dr. Sauer, surgery at [place], ok to evaluate patient. 3:27AM - per transfer line, Dr. Sarkar accepts transfer Medical Decision Making 59-year-old female who presented with diffuse abdominal pain. Patient has stable vitals. Blood workshows normal white blood cell count. CT scan concerning for small bowel obstruction. We were able to place NG tube in the emergency department without difficulty. Discussed case with surgery and hospitalist at [facility], accepted transfer. Problems Addressed: SBO (small bowel obstruction) (CMS/HCC HHS/HCC): acute illness or injury Amount and/or Complexity of Data Reviewed Independent Historian: spouse Labs: ordered. Radiology: ordered. Clinical Impression SBO (small bowel obstruction) (CMS/HCC HHS/HCC) (Primary) Disposition: Transfer to Another Facility García Garay DO 05/23/24 0402 * Jasmine Last RN - 05/23/2024 1:04 AM CDT 59 year old female came in with complaints of vomiting and severe abdominal pain. While patient hasbeen vomiting and having abdominal pain since Wednesday. Patient was here earlier today discharged with Zofran which she had around 2200 but states the vomiting and abdominal pain was getting worst around 2300 tonight. documented in this encounter Plan of Treatment Upcoming Encounters Date Type Department Care Team (Late st Contact Info) Description 11/14/2024 8:00 AM GARMENT LOOPER Office Visit [facility] [address] [facility], [address] [place] [address] Montserrat Oliver NP [address] [facility] [address] [place] [address] 12/06/2024 9:30 AM GARMENT LOOPER Appointment [facility] Open MRI [address] [place] [address] [place] [address] [facility] [address] [place] [address] 03/02/2025 3:20 PM CDT Office Visit [facility] - [address] [phone] [place] [address] [place] [address] documented as of this encounter Procedures Procedure Name Priority Date/Time Associated Diagnosis Comments XR CHEST PORTABLE STAT 05/23/2024 4:[address] ABD+PEL W CON STAT 05/23/2024 2:41 AM CDT COMPREHENSIVE METABOLIC PANEL STAT 05/23/2024 1:10 AM CDT CBC W/DIFF AUTOMATED STAT 05/23/2024 1:10 AM CDT LIPASE STAT 05/23/2024 1:10 AM CDT documented in this encounter Results * XR CHEST PORTABLE (05/23/2024 4:01 AM CDT) Anatomical Region Laterality Modality Chest Radiographic Corin ging 05/23/2024 4:03 AM CDT Impressions 05/23/2024 4:09 AM CDT IMPRESSION: 1. ??Placement of enteric tube with tip in the distal fundus or proximal body of stomach. 2. ??Small right pleural effusion, better seen on comparison CT abdomen and pelvis exam of same date. 3. ??Mild prominence of interstitial markings in the lower lobes, right more than left, mild interstitial pulmonary edema versus atypical pneumonia. Referred By: ?? Interpreted By: Doris Leon MD, 05/23/2024 4:03 AM Narrative 05/23/2024 4:09 AM CDT EXAMINATION: ??XR Portable CXR, 1 View INDICATION: ??Confirmation of Gastric Tube Placement. COMPARISON: CTA chest, abdomen and pelvis with contrast 05/21/2024. ??Portable AP chest x-ray 05/24/2018. FINDINGS: There is an enteric tube with sidehole in the fundus of the stomach and tip in the region of the distal fundus or proximal body of stomach. ??curtain cleaner leads overlie the chest and abdomen. ??Mild calcifications in the aortic arch. ??The cardiomediastinal silhouette is otherwise within normal limits. Pulmonary vascularity is normal. Small right pleural effusion is better seen on the comparison CT abdomen and pelvis exam of same date. ??There is mild prominence of interstitial markings in the lower lobes, right more than left. ??No significant left pleural effusion. ??Upper lobes remain clear. No acute osseous abnormality. Procedure Note Doris Leon MD - 05/23/2024 EXAMINATION: XR Portable CXR, 1 View INDICATION: Confirmation of Gastric Tube Placement. COMPARISON: CTA chest, abdomen and pelvis with contrast 05/21/2024.Portable AP chest x-ray 05/24/2018. FINDINGS: There is an enteric tube with sidehole in the fundus of the stomach andtip in the region of the distal fundus or proximal body of stomach.curtain cleaner leads overlie the chest and abdomen. Mild calcificationsin the aortic arch. The cardiomediastinal silhouette is otherwise withinnormal limits. Pulmonary vascularity is normal. Small right pleuraleffusion is better seen on the comparison CT abdomen and pelvis exam ofsame date. There is mild prominence of interstitial markings in the lowerlobes, right more than left. No significant left pleural effusion. Upperlobes remain clear. No acute osseous abnormality. IMPRESSION: 1. Placement of enteric tube with tip in the distal fundus or proximalbody of stomach. 2. Small right pleural effusion, better seen on comparison CT abdomen andpelvis exam of same date. 3. Mild prominence of interstitial markings in the lower lobes, rightmore than left, mild interstitial pulmonary edema versus atypicalpneumonia. Referred By: Interpreted By: Doris Leon MD, 05/23/2024 4:03 AM us García Garay DO GENERAL IMAGING Final Res ult * CT ABD+PEL W IV CON ONLY (05/23/2024 2:41 AM CDT) Anatomical Region Laterality Modality Abdomen Computed Tomogra phy 05/23/2024 2:54 AM CDT Impressions 05/23/2024 3:00 AM CDT IMPRESSION: Mid to distal small bowel obstruction, likely due to an adhesion. ??Mild associated ascites. ??Small right pleural effusion. Referred By: ?? Interpreted By: Toney Blackmon MD, 05/23/2024 2:54 AM Narrative 05/23/2024 3:[address] of the abdomen and pelvis with contrast INDICATION: Diffuse abdominal pain. Comparison is 05/21/2024. TECHNIQUE: Axial, coronal and sagittal images from the lung bases through the pubic symphysis with intravenous contrast. Radiation dose reduction technique(s) were used. FINDINGS: There is a small right pleural effusion, new from the previous study. ??No basal infiltrates. ??Left lower lobe granuloma noted. Cholecystectomy is noted. ??The liver, spleen, pancreas, adrenals and kidneys appear normal. There is a very small amount of ascites. No upper abdominal or periaortic adenopathy. Scans of the pelvis show no mass, lymphadenopathy or free fluid. ??No bladder wall thickening or bladder calculus. The stomach is unremarkable. There are numerous distended fluid-filled small bowel loops up to 3.3 cm in diameter. ??The distal ileum is collapsed. ??Findings indicate a mid to distal small bowel obstruction, likely due to an adhesion. ??There is mild mesenteric edema. The appendix is normal. ??The colon is unremarkable. ??No free peritoneal air. No hernias are identified. Degenerative changes noted at the lumbosacral disc. ??No acute bony abnormality. Procedure Note Tonye Blackmon MD - 05/23/2024 CT of the abdomen and pelvis with contrast INDICATION: Diffuse abdominal pain. Comparison is 05/21/2024. TECHNIQUE: Axial, coronal and sagittal images from the lung bases throughthe pubic symphysis with intravenous contrast. Radiation dose reduction technique(s) were used. FINDINGS: There is a small right pleural effusion, new from the previousstudy. No basal infiltrates. Left lower lobe granuloma noted. Cholecystectomy is noted. The liver, spleen, pancreas, adrenals andkidneys appear normal. There is a very small amount of ascites. No upper abdominal or periaortic adenopathy. Scans of the pelvis show no mass, lymphadenopathy or free fluid. Nobladder wall thickening or bladder calculus. The stomach is unremarkable. There are numerous distended fluid-filled small bowel loops up to 3.3 cmin diameter. The distal ileum is collapsed. Findings indicate a mid todistal small bowel obstruction, likely due to an adhesion. There is mildmesenteric edema. The appendix is normal. The colon is unremarkable. No free peritonealair. No hernias are identified. Degenerative changes noted at the lumbosacral disc. No acute bonyabnormality. IMPRESSION: Mid to distal small bowel obstruction, likely due to anadhesion. Mild associated ascites. Small right pleural effusion. Referred By: Interpreted By: Toney Blackmon MD, 05/23/2024 2:54 AM García Garay DO CT Final Res ult * LIPASE (05/23/2024 1:10 AM CDT) LIPASE 46 16 - 77 UNITS/L 05/23/2024 1:54 AM CDT [facility] 05/23/2024 1:10 AM CDT García Garay DO LABORATORY Final Res ult [facility] [address] [place] [address], * (ABNORMAL) COMPREHENSIVE METABOLIC PANEL (05/23/2024 1:10 AM CDT) Pathologist [facility] GLUCOSE 112(H) 70 - 99 MG/DL 05/23/2024 1:54 AM CDT [facility] BUN 19(H) 7 - 18 MG/DL 05/23/2024 1:54 AM CDT [facility] CREATININE S/P/B 1.07(H) 0.55 - 1.02 MG/DL 05/23/2024 1:54 AM CDT [facility] SODIUM S/P/B 140 136 - 145 MMOL/L 05/23/2024 1:54 AM CDT [facility] POTASSIUM S/P/B 3.6 3.5 - 5.1 MMOL/L 05/23/2024 1:54 AM CDT [facility] CHLORIDE S/P/B 103 100 - 108 MMOL/L 05/23/2024 1:54 AM CDT [facility] CO2 25.2 21 - 32 MMOL/L 05/23/2024 1:54 AM [facility] CALCIUM S/P/B 10.0 8.5 - 10.1 MG/DL 05/23/2024 1:54 AM [facility] BILIRUBIN TOTAL S/P/B 0.8 0.2 - 1.2 MG/DL 05/23/2024 1:54 AM [facility] TOTAL PROTEIN S/P/B 7.4 6.4 - 8.2 G/DL 05/23/2024 1:54 AM [facility] ALBUMIN S/P/B 3.4 3.4 - 5.0 G/DL 05/23/2024 1:54 AM [facility] AST 21 15 - 37 U/L 05/23/2024 1:54 AM [facility] ALT 24 14 - 55 U/L 05/23/2024 1:54 AM [facility] ALKALINE PHOSPHATASE S/P/B 103 50 - 136 U/L 05/23/2024 1:54 AM [facility] ANION GAP 11.8 5 - 15 MMOL/L 05/23/2024 1:54 AM [facility] BUN CREATININE RATIO 17.8 6 - 26 05/23/2024 1:54 AM [facility] A/G RATIO 0.8(L) 1.0 - 2.0 RATIO 05/23/2024 1:54 AM [facility] GFR ESTIMATE 59(L) >90 ML/MIN/1.7 3 M2 05/23/2024 1:54 AM [facility] Comment: NOTE: eGFR is not calculated for patients <18 years of age. This is an estimated GFR calculation using the new CKD EPI creatinine equation without race and so does not require a correction factor for race. This estimated GFR should not be used for calculating drug doses. 05/23/2024 1:10 AM CDT us García Garay DO LABORATORY Final Res ult [facility] [address] [place] [address], [place] [phone] * (ABNORMAL) CBC W/DIFF AUTOMATED (05/23/2024 1:10 AM CDT) WBC 8.97 4.4 - 11.0 x10'3/uL 05/23/2024 1:39 AM CDT [facility] RBC 4.11(L) 4.50 - 5.10 x10'6/uL 05/23/2024 1:39 AM CDT [facility] HGB 13.8 12.3 - 15.3 G/DL 05/23/2024 1:39 AM CDT [facility] HCT 39.8 35.9 - 44.6 % 05/23/2024 1:39 AM CDT [facility] MCV 96.8(H) 80.0 - 96.0 FL 05/23/2024 1:39 AM CDT [facility] MCH 33.6(H) 25.3 - 30.9 PG 05/23/2024 1:39 AM CDT [facility] MCHC 34.7(H) 31.0 - 34.1 G/DL 05/23/2024 1:39 AM CDT [facility] RDW 14.7 12.4 - 15.1 % 05/23/2024 1:39 AM CDT [facility] PLT 245 151 - 353 x10'3/uL 05/23/2024 1:39 AM CDT [facility] MPV 10.4 9.6 - 12.0 FL 05/23/2024 1:39 AM CDT [facility] RBC MORPHOLOGY NORMAL 05/23/2024 1:39 AM CDT [facility] PLT MORPH. NORMAL 05/23/2024 1:39 AM CDT [facility] WBC MORPHOLOGY NORMAL 05/23/2024 1:39 AM CDT [facility] LYMPHOCYTES % 24.4 15.8 - 45.0 % 05/23/2024 1:39 AM CDT [facility] NEUTROPHILS % 64.1 42.1 - 71.9 % 05/23/2024 1:39 AM CDT [facility] MONOCYTES % 10.4 5.7 - 12.5 % 05/23/2024 1:39 AM CDT [facility] EOSINOPHILS 0.6 0.0 - 5.6 % 05/23/2024 1:39 AM CDT [facility] BASOPHILS 0.2 0.0 - 1.3 % 05/23/2024 1:39 AM CDT [facility] ABS. NEUTROPHILS 5.75 1.40 - 6.00 x10'3/uL 05/23/2024 1:39 AM CDT [facility] IMMATURE GRANS % 0.3 0.0 - 0.5 % 05/23/2024 1:39 AM CDT [facility] ABS. LYMPHOCYTES 2.19 0.80 - 4.70 x10'3/uL 05/23/2024 1:39 AM CDT [facility] 05/23/2024 1:10 AM CDT us García Garay DO LABORATORY Final Res ult [facility] [address] [place] [address], documented in this encounter Visit Diagnoses Diagnosis SBO (small bowel obstruction) (CMS/HCC [facility]/HCC)- Primary Unspecified intestinal obstruction documented in this encounter Administered Medications Inactive Administered Medications - up to 3 most recent administrations Medication Order MAR Action Action Date Dose Rate Site diphenhydrAMINE (BENADRYL) injection 25 mg 25 mg, Intravenous, Once, 1 dose, On Wed05/23/24 at 0230, For IV administration, give no faster than 25 mg/min. Given 05/23/2024 3:09 AM CDT 25 mg haloperidol lactate (HALDOL) injection 1 mg 1 mg, Intravenous, Once, 1 dose, On Wed05/23/24 at 0230, IF giving IV, do not give faster than 5 mg/min IV; observe for hypotension. Given 05/23/2024 3:09 AM CDT 1 mg iopamidol (ISOVUE-370) 76 % injection 75 mL 75 mL, Intravenous, IMG once as needed, Contrast, 1 dose, Starting on Wed05/23/24 at 0241, Until Wed05/23/24 at 0243 Given 05/23/2024 2:43 AM CDT 75 mLs ketorolac (TORADOL) injection 15 mg 15 mg, Intravenous, Once, 1 dose, On Wed05/23/24 at 0115, For IV administration, give over 15 seconds. Given 05/23/2024 1:28 AM CDT 15 mg midazolam (VERSED) injection 1 mg 1 mg, Intravenous, Once, 1 dose, On Wed05/23/24 at 0330 Given 05/23/2024 3:29 AM CDT 1 mg morphine injection 2 mg 2 mg, Intravenous, Once, 1 dose, On Wed05/23/24 at 0330 Given 05/23/2024 3:29 AM CDT 2 mg ondansetron (ZOFRAN) injection 4 mg 4 mg, Intravenous, Once, 1 dose, On Wed05/23/24 at 0115, IV push over 2-5 minutes. Given 05/23/2024 1:28 AM CDT 4 mg sodium chloride 0.9% bolus infusion 1,000 mL 1,000 mL, Intravenous, Administer over 60 Minutes, Once, 1 dose, On Wed05/23/24 at 0115 New Bag 05/23/2024 1:28 AM CDT 1,000 mLs 1000 mL/hr documented in this encounter Active and Recently Administered Medications Times are shown in CDT. Scheduled Medication Order 05/21/2024 05/22/2024 05/23/2024 diphenhydrAMINE (BENADRYL) injection 25 mg (COMPLETED) 25 mg, Intravenous, Once, 1 dose, On e 05/23/24 at 0230, For IV administration, give no faster than 25 mg/min. 0309 (Given - Provid er: Jasmine Last RN) haloperidol lactate (HALDOL) injection 1 mg (COMPLETED) 1 mg, Intravenous, Once, 1 dose, On e 05/23/24 at 0230, IF giving IV, do not give faster than 5 mg/min IV; observe for hypotension. 0309 (Given - Provid er: Jasmine Last RN) ketorolac (TORADOL) injection 15 mg (COMPLETED) 15 mg, Intravenous, Once, 1 dose, On e 05/23/24 at 0115, For IV administration, give over 15 seconds. 0128 (Given - Provid er: Jasmine Last RN) midazolam (VERSED) injection 1 mg (COMPLETED) 1 mg, Intravenous, Once, 1 dose, On e 05/23/24 at 0330 0329 (Given - Provid er: Jasmine Last RN) morphine injection 2 mg (COMPLETED) 2 mg, Intravenous, Once, 1 dose, On Wed05/23/24 at 0330 0329 (Given - Provid er: Jasmine Last RN) ondansetron (ZOFRAN) injection 4 mg (COMPLETED) 4 mg, Intravenous, Once, 1 dose, On Wed05/23/24 at 0115, IV push over 2-5 minutes. 0128 (Given - Provid er: Jasmine Last RN) sodium chloride 0.9% bolus infusion 1,000 mL (COMPLETED) 1,000 mL, Intravenous, Administer over 60 Minutes, Once, 1 dose, On Wed05/23/24 at 0115 0128 (New Bag - Prov ider: Jasmine Last RN)0351 (Infusion Stop Time - Provider: Jasmine Last RN) PRN Medication Order 05/21/2024 05/22/2024 05/23/2024 iopamidol (ISOVUE-370) 76 % injection 75 mL (COMPLETED) 75 mL, Intravenous, IMG once as needed, Contrast, 1 dose, Starting on Wed05/23/24 at 0241, Until Wed05/23/24 at 0243 0243 (Given - Provid er: Nay Joyner, RTR) documented in this encounter Additional Health Concerns Assessment Noted Time PHQ-9 Depression Total Score: 0 04/03/20 10:56 AM CDT documented as of this encounter Care Teams County Manager Relationship Specialty [place] [address] [facility]. [address] [place] [address] PCP - General FAMILY PRACTICE 03/01/23 Perez Cervantes MD [address] [place] [phone] RHEUMATOLOGY 09/02/23 Adriana Ma MD [address] [place] [address] [phone] Referring Physician ALLERGY 09/02/23 documented as of this encounter
--- OUTSIDE RECORDS SUMMARY | 2024-11-13 17:11 | XMS_ITS | Encounter Summary ---
Author Organization [facility] Address [address] [place] [address]. [place], [place] [address] [place] [address] Care Team Providers Care Animal Behaviourist Name Role Phone Dayanara Plaza MD Primary Care Provider [phone] Perez Cervantes MD Unavailable Adriana Ma MD Unavailable [phone] Encounter Details Date Type Department Care Team (Late st Contact Info) Description 02/25/2024 CareShare Message Enc [facility] Family & Internal Medicine [facility] [id number] [place] [phone] [place] Plaza [place] [address] [place] [address]. [address] [place] [address] [facility] asked me to contact you Social History Tobacco Use Types Packs/Day Years [...] Master's degree (e.g., MA, MS, Howard, MEd, SWISS TYPE SCREW MACHINE OPERATOR, KEKE) 12/21/2018 Comments No Sex [...] st Contact Info) Description 11/14/2024 8:00 AM DIGITAL STRATEGIST SENIOR MANAGER Office Visit [facility] Multispecialty Care - [address], [address] [place] [phone] Montserrat Oliver NP [address] [place] [address] [place] [address] 12/06/2024 9:30 AM DIGITAL STRATEGIST SENIOR MANAGER Appointment [facility] Open MRI [address] [place] [address] [place] [address] [facility]. [address] [place] [phone] 03/02/2025 3:20 PM CDT Office Visit [facility] Family & Internal Medicine - [address] [phone] [place] [address] [facility]. [address] [place] [phone] documented as of this encounter Visit Diagnoses Diagnosis Insomnia due to other mental disorder documented in this encounter Additional Health Concerns Infection Onset Date Last Indicated Resolved Time COVID-19 Rule Out 04/03/2024 04/03/2024 04/03/2024 11:38 AM CDT Assessment Noted Time PHQ-9 Depression Total Score: 2 05/27/20 11:36 AM CDT documented as of this encounter Care Teams Animal Behaviourist Relationship Specialty [place] [address] [facility]. [address] [place] [address] PCP - General FAMILY PRACTICE 03/01/23 Perez Cervantes MD [address] [place] [phone] RHEUMATOLOGY 09/02/23 Adriana Ma MD [address] [place] [address] Referring Physician ALLERGY 09/02/23 documented as of this encounter
--- OUTSIDE RECORDS SUMMARY | 2024-11-13 17:11 | XMS_ITS | Encounter Summary ---
Author Organization [facility] Address [address] [place] [address]. [place] [address] [place] [address] Care Team Providers Care Kingsbury Machine Operator Name Role Phone Dayanara Plaza MD Primary Care Provider [phone] Encounter Details Date Type Department Care Team (Latest Contact Info) Description 03/03/2023 Travel Social History Tobacco Use Types Packs/Day Years Used Date Smoking Tobacco: Former Cigarettes 0.3 10 0 11/15/1979 - 11/15/1989 Smokeless Tobacco: Never Comments:off and on for [...] Master's degree (e.g., MA, MS, Howard, MEd, EXAMINING OFFICER, KEKE) 12/21/2018 Comments No Sex and Gender [...] st Contact Info) Description 11/14/2024 8:00 AM DETASSELING CREW SUPERVISOR Office Visit [facility] Multispecialty Care - [facility], [address] [place] [address] Montserrat Oliver, DOREEN 3 [facility] [address] [place] [address] 12/06/2024 9:30 AM DETASSELING CREW SUPERVISOR Appointment [facility] Open MRI [address] [place] [address] [place] [address] [employer]. [address] [place] [address] 03/02/2025 3:20 PM CDT Office Visit [facility] Family & Internal Medicine - [place] [address] [place] [address] [place] [address] [facility] [address] [place] [address] documented as of this encounter Visit Diagnoses Not on filedocumented in this encounter Additional Health Concerns Assessment Noted Time PHQ-9 Depression Total Score: 2 05/27/20 22 11:36 AM CDT documented as of this encounter Care Teams Kingsbury Machine Operator Relationship Specialty [place] [address] [facility] [address] [place] [address] PCP - General FAMILY PRACTICE 03/01/23 documented as of this encounter
--- OUTSIDE RECORDS SUMMARY | 2024-11-13 17:11 | XMS_ITS | Encounter Summary ---
Author Organization [facility] Address [address] [place] [address]. [place] [address] [place] [address] Care Team Providers Care Bulb Packer Name Role Phone Dayanara Plaza MD Primary Care Provider [phone] Perez Cervantes MD Unavailable Adriana Ma MD Unavailable [phone] Reason for Visit * Reason Comments Cough Acute cough x 1 week thinks bronchitis Encounter Details Date Type Department Care Team (Late st Contact Info) Description 04/03/2024 11:00 AM CDT Office Visit [facility] Family & Internal Medicine [address] [phone] Lida Bell, [address], [address] [place] [address] Cough (Acute cough x 1 week thinks bronchitis ) Social History Tobacco Use Types Packs/Day Years [...] Master's degree (e.g., MA, MS, Howard, MEd, ACADEMIC GUIDANCE SPECIALIST, KEKE) 12/21/2018 Comments No Sex and [...] Sign Reading Time Taken Comments Blood Pressure 117/82 04/03/2024 10:46 AM CDT Pulse 76 04/03/2024 10:46 AM CDT Temperature 36.4 ??C (97.6 ??F) 04/03/2024 10:46 AM C DT Respiratory Rate 16 04/03/2024 10:46 AM CDT Oxygen Saturation 98% 04/03/2024 10:46 AM CDT Inhaled Oxygen Concentration - - Weight 79.4 kg (175 lb) 04/03/2024 10:46 AM CDT Height 172.7 cm (5' 8 ) 04/03/2024 10:46 AM CDT Body Mass Index 26.61 04/03/2024 10:46 AM CDT documented in this encounter Progress Notes * Lida Bell, AGENT LICENSING CLERK-BC - 04/03/2024 11:00 AM CDT Reason for Visit: Cough (Acute cough x 1 week thinks bronchitis ) History of Present Illness Hans Pascual is a 59-year-old female with polyarthritis on Enbrel and methotrexate, seasonal allergies, DURAN, and IBS. She presents to the clinic today with a one-week history of non-productive cough. She reports initially she had a tickle in her throat starting Wednesday evening. It persisteduntil yesterday when she began to feel worse. She c/o mild sore throat, ear discomfort, fatigue, headache, and reduced appetite. She reports loss of voice and since last night her chest feels tight. Temp was 99.1 F the previous night, which is higher than their usual body temperature of 97F, she reports. She denies alternating hot and cold sensations, excessive sweating, body aches, diarrhea, constipation, vomiting, dysuria, and dental pain. 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 She has been visiting with her daughter in [place] this past week. She has been taking Mucinex-D with minimal improvement in symptoms. Review of Systems Constitutional: Positive for activity change, appetite change, chills and fatigue. HENT: Positive for congestion, sore throat (mild) and voice change. Respiratory: Positive for cough, chest tightness and shortness of breath. Negative for sputum production. Gastrointestinal: Negative. Musculoskeletal: Positive for myalgias. Neurological: Positive for headaches. Review of patient's allergies indicates: Allergen Reactions Levofloxacin Nausea and Vomiting, Nausea Only, Hallucinations and Other (see comment) hallucinations Other reaction(s): Other hallucinations Past Medical History: Diagnosis Date Anxiety Cataract surgery 2020 COVID-19 GERD (gastroesophageal reflux disease) Heart murmur IBS (irritable bowel syndrome) Inflammatory arthritis Plantar fasciitis RA (rheumatoid arthritis) ([facility]) Wears glasses Past Surgical History: Procedure Laterality Date CHOLECYSTECTOMY COLONOSCOPY N/A 03/17/2021 COLONOSCOPY-NORMAL performed by Niall Matute MD at [facility] GI COLONOSCOPY STOMA DX INCLUDING COLLJ SPEC SPX AH 9 yrs. EXTRACT ERUPT TOOTH wisdom teeth removal EYE SURGERY 2020 cataract extraction FOOT SURGERY Right 09/10/2023 LAMINECTOMY,LUMBAR SEPTOPLASTY Social History Tobacco Use Smoking status: Former Current packs/day: 0.00 Average packs/day: 0.3 packs/day for 10.0 years (2.5 ttl pk-yrs) Types: Cigarettes Start date: 11/15/1979 Quit date: 11/15/1989 Years since quittin.4 Passive exposure: Past Smokeless tobacco: Never Tobacco comments: off and on for 10 years from 84-94 with long periods of none at all Vaping Use Vaping status: Never Used Substance Use Topics Alcohol use: No Drug use: No Family History Problem Relation Name Age of Onset COPD Mother Shirley Other (mva) Father Medications: Current Outpatient Medications Medication Instructions ALPRAZolam (XANAX) 0.25 mg, Oral, Nightly PRN azelastine (ASTELIN) 0.1 % nasal spray 2 spray(s) intranasally 2 times a day, PRN for 30 days dicyclomine (BENTYL) 20 mg, Oral, Every 6 hours PRN estradiol (ESTRACE) 0.1 MG/GM vaginal cream etanercept (ENBREL) 50 mg, Subcutaneous, WEEKLY fexofenadine (PIYUSH) 180 mg, Oral, Daily folic acid (FOLVITE) 1 mg, Oral, Daily gabapentin (NEURONTIN) 100 MG capsule hydrocortisone (ANUSOL-HC) 2.5 % rectal cream methotrexate 2.5 MG tablet Take by mouth once a week. Take 6 tablets every 7 days. montelukast (SINGULAIR) 10 mg, Oral, Daily multivitamin tablet 2 tablets, Oral, Daily nabumetone (RELAFEN) 1,000 mg, Oral, 2 times daily polyethylene glycol packet 1 packet, Oral, Daily as needed traZODone (DESYREL) 100 mg, Oral, Nightly at bedtime valACYclovir 1 g tablet PRN Physical exam: Filed Vitals: 04/03/24 1046 BP: 117/82 Pulse: 76 Resp: 16 Temp: 97.6 ??F (36.4 ??C) TempSrc: Temporal SpO2: 98% Weight: 79.4 kg (175 lb) Height: 1.727 m (5' 8 ) Physical Exam Vitals reviewed. Constitutional: General: She is not in acute distress. Appearance: Normal appearance. She is ill-appearing. HENT: Head: Normocephalic and atraumatic. Right Ear: Hearing, ear canal and external ear normal. A middle ear effusion is present. Left Ear: Hearing, ear canal and external ear normal. A middle ear effusion is present. Nose: Nose normal. No nasal deformity or rhinorrhea. Right Sinus: No maxillary sinus tenderness or frontal sinus tenderness. Left Sinus: No maxillary sinus tenderness or frontal sinus tenderness. Mouth/Throat: Lips: No lesions. Mouth: Mucous membranes are moist. No oral lesions. Dentition: Normal dentition. Pharynx: Posterior oropharyngeal erythema present. Tonsils: No tonsillar exudate or tonsillar abscesses. 1+ on the right. 1+ on the left. Eyes: General: No scleral icterus. Conjunctiva/sclera: Conjunctivae normal. Pupils: Pupils are equal, round, and reactive to light. Neck: Trachea: Trachea normal. Cardiovascular: Rate and Rhythm: Normal rate and regular rhythm. Pulses: Normal pulses. Heart sounds: Normal heart sounds. No murmur heard. No gallop. Pulmonary: Effort: Pulmonary effort is normal. Prolonged expiration present. No respiratory distress. Breath sounds: Examination of the right-lower field reveals decreased breath sounds. Examination ofthe left-lower field reveals decreased breath sounds. Decreased breath sounds present. No wheezing,rhonchi or rales. Comments: Dry, tight cough Abdominal: Palpations: Abdomen is soft. Lymphadenopathy: Cervical: No cervical adenopathy. Skin: General: Skin is warm and dry. Capillary Refill: Capillary refill takes less than 2 seconds. Findings: No lesion or rash. Neurological: General: No focal deficit present. Mental Status: She is alert. Mental status is at baseline. Psychiatric: Mood and Affect: Mood normal. Speech: Speech normal. Behavior: Behavior normal. Behavior is cooperative. COVID19 negative Influenza A/B negative Assessment/Plan: Encounter Diagnose(s) ICD-10-CM SNOMED CT(R) 1. Suspected COVID-19 virus infection Z20.822 SUSPECTED COVID-19 CORONAVIRUS (COVID-19) INFLUENZA A& B ANTIGEN IA PANEL 2. Acute bronchitis, unspecified organism J20.9 ACUTE BRONCHITIS 3. Immunocompromised patient ([facility]) D84.9 PATIENT IMMUNOCOMPROMISED The patient's symptoms suggest a respiratory tract infection, likely bronchitis. Patient is currently on immunosuppressant therapy. Plan: COVID-19 & influenza testing to rule out infection- all negative. Initiate treatment with Augmentin 875/125 mg PO BID x 10 days and prednisone 40 mg PO daily x five days due to chest tightness and the patient's history of immunosuppressant therapy. Advised to consume yogurt while taking the antibiotic to maintain gut health. Trial Albuterol inhaler 1-2 puffs every 4-6 ours as needed for shortness of breath or wheezing. Advised the patient to continue taking Mucinex DM for cough and congestion during the day. Start Tussalon perles 100 mg PO Q8 hours PRN for cough, especially before bedtime to avoid sleep disturbance. Recommend supportive care of rest, hydration, and OTC acetaminophen or ibuprofen as needed for fever or pain. Advised to return to clinic if no improvement or worsening symptoms in 48-72 hours. Patient is in agreement to and verbalized understanding of treatment plan with no further questionsat this time. JOSH PÉREZ 04/03/24 11:03 AM Be advised that voice recognition software has been used on this chart and inadvertent errors may occur. These may not represent a true interpretation of the dictation given. documented in this encounter Plan of Treatment Upcoming Encounters Date Type Department Care Team (Late st Contact Info) Description 11/14/2024 8:00 AM DIAMOND CUTTER Office Visit [facility] Multispecialty Care - [facility] 3 [facility], [address] [place] [address] Montserrat Oliver NP 3 [facility] [address] [place] [address] 12/06/2024 9:30 AM DIAMOND CUTTER Appointment [facility] Open MRI [address] [place] [address] [place] [address] [facility]. [address] [place] [address] 03/02/2025 3:20 PM CDT Office Visit [facility] Family & Internal Medicine - [address] [phone] [place] [address] [facility]. [address] [place] [phone] documented as of this encounter Procedures Procedure Name Priority Date/Time Associated Diagnosis Comments CORONAVIRUS (COVID-19) INFLUENZA A & B ANTIGEN IA PANEL Routine 04/03/2024 Suspected COVID-19 virus infection documented in this encounter Results * CORONAVIRUS (COVID-19) INFLUENZA A & B ANTIGEN IA PANEL (04/03/2024) CORONAVIRUS ANTIGEN IA NEGATIVE NEGATIVE [id number], [place] INFLUENZA A NEGATIVE NEGATIVE [id number], [place] INFLUENZA B NEGATIVE NEGATIVE [id number], [place] Internal Control: VALID VALID -[id number] [place] NASAL STRUCTURE / Unknown 04/03/2024 Lida Bell AGENT LICENSING CLERK-BC MICROBIOLOGY - GENERAL O RDERABLES Final Result -[id number] [address], [place] [address] [place] [address], documented in this encounter Visit Diagnoses Diagnosis Suspected COVID-19 virus infection- Primary Acute bronchitis, unspecified organism Immunocompromised patient ([facility]) Unspecified immunity deficiency documented in this encounter Additional Health Concerns Infection Onset Date Last Indicated Resolved Time COVID-19 Rule Out 04/03/2024 04/03/2024 04/03/2024 11:38 AM CDT Assessment Noted Time PHQ-9 Depression Total Score: 0 04/03/20 24 10:56 AM CDT documented as of this encounter Care Teams Bulb Packer Relationship Specialty [place] [address] [place], [place] [phone] PCP - General FAMILY PRACTICE 03/01/23 Perez Cervantes MD [address] DIV [place] [phone] RHEUMATOLOGY 09/02/23 Adriana Ma MD [address] [place] [address] Referring Physician ALLERGY 09/02/23 documented as of this encounter
--- OUTSIDE RECORDS SUMMARY | 2024-11-13 17:11 | XMS_ITS | Encounter Summary ---
Author Organization [facility] Address [address] [place] [address]. [place] [address] [place] [address] Care Team Providers Care Psychiatric Secretary Name Role Phone Dayanara Plaza MD Primary Care Provider [phone] Perez Cervantes MD Unavailable Adriana Ma MD Unavailable [phone] Encounter Details Date Type Department Care Team (Latest Contact Info) Description 04/03/2024 Travel Social History Tobacco Use Types Packs/Day [...] Master's degree (e.g., MA, MS, Howard, MEd, EMERGENCY MAN, KEKE) 12/21/2018 Comments No Sex and Gender [...] st Contact Info) Description 11/14/2024 8:00 AM UNIX MANAGER Office Visit [facility] Multispecialty Care - [facility] 3 [facility], [address] [place] [address] Montserrat Oliver, FUNERAL SALES MANAGER 3 [facility] [address] [place] [address] 12/06/2024 9:30 AM UNIX MANAGER Appointment [facility] Open MRI [address] [place] [address] [place] [address] [facility] [place] [address] 03/02/2025 3:20 PM CDT Office Visit [facility] Family & Internal Medicine - [place] [address] [place] [phone] [place] [address] [facility]. [address] [place] [address] documented as of this encounter Visit Diagnoses Not on filedocumented in this encounter Additional Health Concerns Infection Onset Date Last Indicated Resolved Time COVID-19 Rule Out 04/03/2024 04/03/2024 04/03/2024 11:38 AM CDT Assessment Noted Time PHQ-9 Depression Total Score: 0 04/03/20 24 10:56 AM CDT documented as of this encounter Care Teams Psychiatric Secretary Relationship Specialty [place] [address] [place] [address] PCP - General FAMILY PRACTICE 03/01/23 Perez Cervantes MD [address] [place] [address] RHEUMATOLOGY 09/02/23 Adriana aM MD [address] [place] [address] Referring Physician ALLERGY 09/02/23 documented as of this encounter
--- OUTSIDE RECORDS SUMMARY | 2024-11-13 17:11 | XMS_ITS | Encounter Summary ---
Author Organization [facility] Address [address] [place] [address]. [place], [place] [id number] [place] [address] Care Team Providers Care Engineering Intern Name Role Phone Izzy Plaza MD Primary Care Provider [phone] Reason for Visit * Reason Comments Surgical Clearance Pt having plantar fa scitis sx on right foot on 09/10 Encounter Details Date Type Department Care Team (Late st Contact Info) Description 09/01/2023 11:00 AM CDT Office Visit [facility] Medical Group Family & Internal Medicine [facility] [address] [place] [address] Izzy Plaza MD [address] [place] [address]. [address] [place] [address] Surgical Clearance (Pt having plantar fascitis sx on right foot on 09/10) Social History Tobacco Use Types Packs/Day Years [...] Master's degree (e.g., MA, MS, Howard, MEd, CRIMINAL INVESTIGATIVE AGENT, KEKE) 12/21/2018 Comments No Sex and Gender [...] Reading Time Taken Comments Blood Pressure 98/66 09/01/2023 10:51 AM CDT Pulse 75 09/01/2023 10:51 AM CDT Temperature 36.4 ??C (97.6 ??F) 09/01/2023 10:51 AM C DT Respiratory Rate 16 09/01/2023 10:51 AM CDT Oxygen Saturation 100% 09/01/2023 10:51 AM CDT Inhaled Oxygen Concentration - - Weight 74.8 kg (165 lb) 09/01/2023 10:51 AM CDT Height 172.7 cm (5' 8 ) 09/01/2023 10:51 AM CDT Body Mass Index 25.09 09/01/2023 10:51 AM CDT documented in this encounter Progress Notes * Izzy Plaza MD - 09/01/2023 11:00 AM CDT Reason for Visit: Surgical Clearance (Pt having plantar fascitis sx on right foot on 09/10) History of Present Illness: [facility] pleasant 58-year-old female with past medical history but not limited to generalized anxiety, depression, IBS, RA on mtx, polyarthritis, seasonal allergies was seen in office today for preop surgical clearance. 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 On augmentin FOR UTI. Last UrINE CULTURE negative, TAKING FLEXERIL FOR BACK pain. That's better. Not needing it anymore. TAKES xANAX prn. LAST dose was about month ago. Scheduled date of surgery: 09/10/2023 Surgeon: Dr. Castellanos Anesthesia: GENERAL Procedure: Right foot plantar fascitis procedure [facility] How long prior to surgery can pre-op be scheduled? 30 DAYS Surgical Risk Assessment: Prior Anesthesia: She had prior anesthesia and no prior adverse reaction to general anesthesia. Pertinent Past Medical History: Please see above Exercise Capacity: able to walk four blocks without symptoms. Lifestyle Factors: denies alcohol use, denies tobacco use and denies illegal drug use. Symptoms: nosymptoms. Pertinent Family History: no pertinent family history. Living Situation: home is secure and supportive and no post-op concerns with her living situation. Revised cardiac risk assessment: 1. Elevated risk for surgery-no 2. History of ischemic heart disease-patient denies 3. History of CHF-patient denies 4. History of cerebrovascular disease-patient denies 5. Preop treatment with insulin-patient denies 6. Preop creatinine clearance > 2mg/dl-no Use of CPAP or signs and symptoms of narrow airway: NO Do you snore loudly- DEnies Does not feel fatigued, tired or sleepy during the daytime- DENIES Has anyone observed you stop breathing during sleep- denies Personal history of bleeding or clotting disorders: She denies Family history of bleeding or clotting disorders: Patient denies Personal history of DVT-patient denies Personal history of PE-patient denies Personal history of current blood thinners-patient denies High risk medication use: 1. Insulin-never 2.NSAIDS-currently on nabumetone 3.Glucophage- NO 4. 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 No other concerns for today ROS: Review of Systems Constitutional: Negative for activity change, appetite change, chills and fever. HENT: Negative for congestion, ear discharge, facial swelling, hearing loss, nosebleeds, postnasal drip, rhinorrhea and sinus pressure. Eyes: Negative for visual disturbance. Respiratory: Positive for cough. Negative for shortness of breath and wheezing. Cardiovascular: Negative for chest pain, palpitations and leg swelling. Gastrointestinal: Negative for abdominal pain, constipation, diarrhea, heartburn, nausea and vomiting. Endocrine: Negative for polyuria. Genitourinary: Negative for dysuria, hematuria and pelvic pain. Musculoskeletal: Positive for arthralgias. Neurological: Negative for dizziness, syncope and headaches. Psychiatric/Behavioral: Negative for behavioral problems. Medications: Current Outpatient Medications: ALPRAZolam (XANAX) 0.25 MG tablet, Take 1 tablet (0.25 mg total) by mouth nightly as needed for Anxiety., Disp: 30 tablet, Rfl: 0 Ascorbic Acid (VITAMIN C) 100 MG tablet, Take 1 tablet (100 mg total) by mouth daily., Disp: , Rfl: busPIRone (BUSPAR) 15 MG tablet, TAKE 1 TABLET (15 MG TOTAL) BY MOUTH 2 (TWO) TIMES DAILY., Disp: 180 tablet, Rfl: 1 citalopram (CELEXA) 20 MG tablet, TAKE 1 TABLET BY MOUTH DAILY, Disp: 30 tablet, Rfl: 0 dicyclomine (BENTYL) 20 MG tablet, Take 1 tablet (20 mg total) by mouth every 6 (six) hours as needed., Disp: 120 tablet, Rfl: 0 etanercept 50 MG/ML injection, Inject 1 mL (50 mg total) into the skin weekly., Disp: , Rfl: fexofenadine (PIYUSH) 180 MG tablet, daily., Disp: , Rfl: folic acid (FOLVITE) 1 MG tablet, daily., Disp: , Rfl: methotrexate 2.5 MG tablet, TAKE 8 TABLETS EVERY 7 DAYS, Disp: , Rfl: montelukast (SINGULAIR) 10 MG tablet, TAKE 1 TABLET (10 MG TOTAL) BY MOUTH DAILY., Disp: 90 tablet,Rfl: 0 multivitamin tablet, Take 2 tablets by mouth daily., Disp: , Rfl: nabumetone 500 MG tablet, Take 2 tablets (1,000 mg total) by mouth 2 (two) times daily., Disp: , Rfl: [place]-3 Fatty Acids (FISH OIL) 1200 MG Cap, 1 cap, Disp: , Rfl: polyethylene glycol packet, Take 240 mLs (1 packet total) by mouth daily as needed., Disp: , Rfl: valACYclovir 1 g tablet, as needed. , Disp: , Rfl: Review of patient's allergies indicates: Allergen Reactions Levofloxacin Nausea and Vomiting, Nausea Only, Hallucinations and Other (see comment) hallucinations Other reaction(s): Other hallucinations Past Medical History: Diagnosis Date Anxiety Cataract surgery 2020 GERD (gastroesophageal reflux disease) Heart murmur IBS (irritable bowel syndrome) Inflammatory arthritis RA (rheumatoid arthritis) ([facility]/HCC) ([facility]/HCC) Wears glasses Past Surgical History: Procedure Laterality Date CHOLECYSTECTOMY COLONOSCOPY AH 9 yrs. COLONOSCOPY N/A 03/17/2021 COLONOSCOPY-NORMAL performed by Niall Matute MD at [facility] 2020 LAMINECTOMY,LUMBAR SEPTOPLASTY Social History Socioeconomic History Marital status: Spouse name: Cl Number of children: 4 Highest education level: Master's degree (e.g., MA, MS, Howard, MEd, CRIMINAL INVESTIGATIVE AGENT, KEKE) Occupational History 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 Use [...] Status Mother Shirley Alive Father Physical Exam Vitals reviewed. HENT: Head: Normocephalic and atraumatic. Eyes: Conjunctiva/sclera: Conjunctivae normal. Cardiovascular: Rate and Rhythm: Normal rate and regular rhythm. Pulmonary: Effort: Pulmonary effort is normal. Breath sounds: Normal breath sounds. No wheezing. Musculoskeletal: Right lower leg: No edema. Left lower leg: No edema. Skin: General: Skin is warm. Neurological: Mental Status: She is alert and oriented to person, place, and time. Psychiatric: Mood and Affect: Mood normal. Behavior: Behavior normal. Judgment: Judgment normal. Filed Vitals: 09/01/23 1051 BP: 98/66 Pulse: 75 Resp: 16 Temp: 97.6 ??F (36.4 ??C) TempSrc: Temporal SpO2: 100% Weight: 74.8 kg (165 lb) Height: 1.727 m (5' 8 ) Diagnoses/Impression: 1. Preop examination ECG 12 lead (Hosp Performed) 2. Plantar fasciitis of right foot ECG 12 lead (Hosp Performed) 3. Hypotension due to hypovolemia ECG 12 lead (Hosp Performed) 4. DURAN (generalized anxiety disorder) Recommendations and Plan: Reviewed CBC and CMP from July. Last hemoglobin 12.7. Renal function is normal. Normal CXR yesterday at [facility]-no acute abnormality Advise preop EKG today. Revised cardiac risk index - points 0: Class I RISK- Very Low , 3.9 % risk of perioperative cardiaccomplications- Mi, CARDIAC ARREST OR . . Patient advised to hold nabumetone 5 days before procedure. Postop anticoagulation per surgeon. pENDING sTRESS TEST per chart- HOWEVER HER EPISODE OF SYNcope earlier this year was post steroid injection. So likely vasovagal. Stress test not indicated at this time asymptomatic and METS >6. Chronic hypotension and generalized anxiety are stable. Continue current medications. She will see me in October as scheduled. Earlier if needed. She voiced understanding and agrees with the plan. All questions answered. Orders Placed This Encounter ECG 12 lead (Hosp Performed) Reviewed and updated this visit by provider: Izzy Plaza MD Referring Provider: No ref. provider found PCP: Izzy Plaza MD documented in this encounter Plan of Treatment Upcoming Encounters Date Type Department Care Team (Late st Contact Info) Description 11/14/2024 8:00 AM PHYSICAL CHEMISTRY PROFESSOR Office Visit [facility] Medical Group Multispecialty Care - [facility] [address] [facility], [address] [place] [phone] Montserrat Oliver NP 3 [facility] [address] [place], [place] [address] 12/06/2024 9:30 AM PHYSICAL CHEMISTRY PROFESSOR Appointment [facility] Open MRI [address] [place] [address] [place] [address] [address] [place] [address] 03/02/2025 3:20 PM CDT Office Visit [facility] Medical Group Family & Internal Medicine [facility] [address] [place] [address] [place] [address] [facility] [place] [address] documented as of this encounter Results * ECG 12 lead (Hosp Performed) (09/01/2023 11:48 AM CDT) 09/01/2023 11:4 8 AM CDT Narrative [facility] ([facility]) RAD - 09/04/2023 10:13 AM CDT ?[facility] ? Test Date: ?2023-09-01 Pat Name: ? HANS PASCUAL ? Department: ?? 85 ? Room: ? Gender: ? Female ? Minister: ?? : ?1965 ? Requested By: IZZY PLAZA Order Number: [id number] ? Reading : ?? Clement Young ? Measurements Intervals ?Chicken ? Rate: ? 65 ? P: ?75 WI: ? 194 ?QRS: ?69 QRSD: ? 90 ? T: ?56 QT: ? 375 ? QTc: ?391 ? Interpretive Statements SINUS RHYTHM No previous ECG available for comparison Procedure Note Clement Young MD - 09/04/2023 [facility] Test Date: 2023-09-01 Pat Name: HANS [facility] Department: 85 Room: Gender: Female Minister: : 1965 Requested By: IZZY PLAZA Order Number: [id number] Reading MD: Clement Young Measurements Intervals Chicken Rate: 65 P: 75 WI: 194 QRS: 69 QRSD: 90 T: 56 QT: 375 QTc: 391 Interpretive Statements SINUS RHYTHM No previous ECG available for comparison Izzy Plaza MD ECG ORDERABLES Final Result [facility] ([facility]) [facility] documented in this encounter Visit Diagnoses Diagnosis Preop examination- Primary Preoperative examination, unspecified Plantar fasciitis of right foot Plantar fascial fibromatosis Hypotension due to hypovolemia DURAN (generalized anxiety disorder) Generalized anxiety disorder Preop examination Preoperative examination, unspecified Plantar fasciitis of right foot Plantar fascial fibromatosis Hypotension due to hypovolemia documented in this encounter Additional Health Concerns Assessment Noted Time PHQ-9 Depression Total Score: 2 05/27/20 22 11:36 AM CDT documented as of this encounter Care Teams Engineering Intern Relationship Specialty [place] [address] [facility]. [address] [place] [address] PCP - General FAMILY PRACTICE 03/01/23 documented as of this encounter
--- OUTSIDE RECORDS SUMMARY | 2024-11-13 17:11 | XMS_ITS | Encounter Summary ---
Author Organization [facility] Address [address] [place] [address]. [place] [address] [place] [address] Care Team Providers Care Call Or Contact Centre Coach Name Role Phone Dayanara Plaza MD Primary Care Provider [phone] Perez Cervantes MD Unavailable Adriana Ma MD Unavailable [phone] Encounter Details Date Type Department Care Team (Latest Contact Info) Description 11/10/2023 Travel Social History Tobacco Use Types Packs/Day [...] Master's degree (e.g., MA, MS, Howard, MEd, DATA MODELING ARCHITECT, KEKE) 12/21/2018 Comments No Sex and Gender [...] st Contact Info) Description 11/14/2024 8:00 AM NEEDLE PUNCH OPERATOR Office Visit [facility] Multispecialty Care - [facility] [address] [facility], [address] [place] [address] Montserrat Oliver NP [address] [facility] [address] [place] [address] 12/06/2024 9:30 AM NEEDLE PUNCH OPERATOR Appointment [facility] Open MRI [address] [place] [address] [place] [address] [address] [place] [address] 03/02/2025 3:20 PM CDT Office Visit [facility] Family & Internal Medicine - [place] [address] [place] [phone] [place] [address] [facility] [address] [place] [address] documented as of this encounter Visit Diagnoses Not on filedocumented in this encounter Additional Health Concerns Assessment Noted Time PHQ-9 Depression Total Score: 2 05/27/20 22 11:36 AM CDT documented as of this encounter Care Teams Call Or Contact Centre Coach Relationship Specialty Start Date End Date Dayanara Plaza MD [address] [place] [address] Ave[address] [place] [address] PCP - General FAMILY PRACTICE 03/01/23 Perez Cervantes MD [address] DIV [place] [phone] RHEUMATOLOGY 09/02/23 Adriana Ma MD [address] [place] [address] Referring Physician ALLERGY 09/02/23 documented as of this encounter
--- OUTSIDE RECORDS SUMMARY | 2024-11-13 17:11 | XMS_ITS | Encounter Summary ---
Author Organization [facility] Address [address] [place] [address]. [place] [address] [place] [address] Care Team Providers Care Superintendent Radio Communications Name Role Phone Dayanara Plaza MD Primary Care Provider [phone] Perez Cervantes MD Unavailable Adriana Ma MD Unavailable [phone] Encounter Details Date Type Department Care Team (Late st Contact Info) Description 11/16/2023 [email or web address] Message Enc [facility] Medical Group Family & Internal Medicine [facility] [address] [place] [address] Day[place] Plaza [place] [id number] [place] [address]. [address] [place] [address] worried about drug interaction Social History Tobacco Use Types Packs/Day Years [...] Master's degree (e.g., MA, MS, Howard, MEd, BARMAN, KEKE) 12/21/2018 Comments No Sex and Gender [...] st Contact Info) Description 11/14/2024 8:00 AM PALLIATIVE NURSE Office Visit [facility] Multispecialty Care - [address], [address] [place] [phone] Montserrat Oliver NP 3 [facility] [address] [place] [address] 12/06/2024 9:30 AM PALLIATIVE NURSE Appointment [facility] Open MRI [address] [place] [address] [place] [address] [facility] [address] [address] [place] [id number] 03/02/2025 3:20 PM CDT Office Visit [facility] Family & Internal Medicine - [address] [phone] [place] [address] [address] [place] [address] documented as of this encounter Visit Diagnoses Not on filedocumented in this encounter Additional Health Concerns Infection Onset Date Last Indicated Resolved Time COVID-19 Rule Out 04/03/2024 04/03/2024 04/03/2024 11:38 AM CDT Assessment Noted Time PHQ-9 Depression Total Score: 2 05/27/20 11:36 AM CDT documented as of this encounter Care Teams Superintendent Radio Communications Relationship Specialty [place] [address] [facility] [place] [address] PCP - General FAMILY PRACTICE 03/01/23 Perez Cervantes MD [address] [place] [phone] RHEUMATOLOGY 09/02/23 Adriana Ma MD [address] [place] [address] Referring Physician ALLERGY 09/02/23 documented as of this encounter
--- OUTSIDE RECORDS SUMMARY | 2024-11-13 17:11 | XMS_ITS | Encounter Summary ---
Author Organization [facility] Address [address] [place] [address]. [place] [address] [place] [address] Care Team Providers Care Lamination Technician Name Role Phone Dayanara Plaza MD Primary Care Provider [phone] Encounter Details Date Type Department Care Team (Latest Contact Info) Description 03/25/2023 Travel Social History Tobacco Use Types Packs/Day [...] Master's degree (e.g., MA, MS, Howard, MEd, FRIT BURNER, KEKE) 12/21/2018 Comments No Sex and Gender [...] suspected to have Coronavirus/COVID-19? No / Unsure 03/25/2023 3:12 PM CDT documented as of this encounter Plan of Treatment Upcoming Encounters Date Type Department Care Team (Late st Contact Info) Description 11/14/2024 8:00 AM DOGGY DAYCARE ACTIVITIES DIRECTOR Office Visit [facility] Multispecialty Care - [facility] [address] [facility], [address] [place] [address] Montserrat Oliver, DOREEN 3 [facility] [address] [place] [address] 12/06/2024 9:30 AM DOGGY DAYCARE ACTIVITIES DIRECTOR Appointment [facility] Open MRI [address] [place] [address] [place] [address] [employer] [place] [address] 03/02/2025 3:20 PM CDT Office Visit [facility] Family & Internal Medicine - [place] [address] [place] [address] [place] [address] [facility] [address] [place] [address] documented as of this encounter Visit Diagnoses Not on filedocumented in this encounter Additional Health Concerns Assessment Noted Time PHQ-9 Depression Total Score: 2 05/27/20 22 11:36 AM CDT documented as of this encounter Care Teams Lamination Technician Relationship Specialty Start [place] [address] [facility] [address] [place] [address] PCP - General FAMILY PRACTICE 03/01/23 documented as of this encounter
--- OUTSIDE RECORDS SUMMARY | 2024-11-13 17:11 | XMS_ITS | Encounter Summary ---
Author Organization [facility] Address [address] [place] [address]. [place] [address] [place] [address] Care Team Providers Care Lead Tank Mechanic Name Role Phone Dayanara Plaza MD Primary Care Provider [phone] Perez Cervantes MD Unavailable Adriana Ma MD Unavailable [phone] Reason for Visit * Reason Comments Follow Up Establishing care, hortensia chisholm from Dr. Mcnally. Encounter Details Date Type Department Care Team (Late st Contact Info) Description 11/10/2023 3:20 PM SENIOR WATER RESOURCES ENGINEER Office Visit [facility] Family & Internal Medicine [address] [place] [address] [address] Dayan[place] [id number] [place] [address]. [address] [place] [id number] Follow Up (Establishing care, transfer from Dr. Jarrett ) Social History Tobacco Use Types Packs/Day [...] Master's degree (e.g., MA, MS, Howard, MEd, CHANNEL SPECIALIST, KEKE) 12/21/2018 Comments No Sex and [...] Sign Reading Time Taken Comments Blood Pressure 112/60 11/10/2023 3:29 PM SENIOR WATER RESOURCES ENGINEER Pulse 72 11/10/2023 3:29 PM SENIOR WATER RESOURCES ENGINEER Temperature 37.2 ??C (98.9 ??F) 11/10/2023 3:29 PM CS T Respiratory Rate 18 11/10/2023 3:29 PM SENIOR WATER RESOURCES ENGINEER Oxygen Saturation 98% 11/10/2023 3:29 PM SENIOR WATER RESOURCES ENGINEER Inhaled Oxygen Concentration - - Weight 76.2 kg (168 lb) 11/10/2023 3:29 PM SENIOR WATER RESOURCES ENGINEER Height 172.7 cm (5' 8 ) 11/10/2023 3:29 PM SENIOR WATER RESOURCES ENGINEER Body Mass Index 25.54 11/10/2023 3:29 PM SENIOR WATER RESOURCES ENGINEER documented in this encounter Patient Instructions * Patient Instructions* Dayanara Plaza MD - 11/10/2023 3:20 PM SENIOR WATER RESOURCES ENGINEER Start trazodone today Keep taking citalopram for 3 weeks and then stop After this continue trazodone at bedtime only Can increase Trazodone to 2-3 tablets at bedtime if needed OR WATER RESOURCES ENGINEER documented in this encounter Progress Notes * Dayanara Plaza MD - 11/10/2023 3:20 PM CST Reason for Visit: Follow Up (Establishing care, transfer from Dr. Mcnally. ) History of Present Illness: [facility] is a pleasant 58-year-old female with past medical history but not limited to generalized anxiety, depression, seasonal allergies, GERD, IBS, RA on mtx, polyarthritis, seasonalallergies was seen in office today to establish care with new PCP. Previous PCP Dr. Mcnally has retired. Reviewed past medical, surgical, social and family history in snapshot with patient today. Mood- good. Anxiety and depression are stable. Continues to take citalopram and BuSpar. Xanax- states left over tablets from February. She takes PRN for situational anxiety. She states she has sleep disturbance. Takes benadryl. Helps. Cannot fall asleep or go back to sleepif she wakes up at night History of staph infection in the nose. Was treated with a topical ointment. Wants to have that in case symptoms return IBS is stable. Takes Bentyl as needed. RA well-controlled. She had a surgery for plantar fasciitis earlier this year. This is healed good.Residual minimal soreness of the foot With excess exertion. 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 Sees cable television access coordinator Pole Framer Machine for [employer]. No other concerns for today ROS: Review of Systems Constitutional: Negative for activity change, appetite change, chills and fever. HENT: Negative for congestion, ear discharge, facial swelling, hearing loss, nosebleeds, postnasal drip, rhinorrhea and sinus pressure. Eyes: Negative for visual disturbance. Respiratory: Negative for cough, shortness of breath and wheezing. Cardiovascular: Negative for chest pain, palpitations and leg swelling. Gastrointestinal: Negative for abdominal pain, constipation, diarrhea, heartburn, nausea and vomiting. Endocrine: Negative for polyuria. Genitourinary: Negative for dysuria, hematuria and pelvic pain. Musculoskeletal: Positive for arthralgias. Neurological: Negative for dizziness, syncope and headaches. Psychiatric/Behavioral: Positive for sleep disturbance. Negative for behavioral problems. Medications: Current Outpatient Medications: ALPRAZolam (XANAX) 0.25 MG tablet, Take 1 tablet (0.25 mg total) by mouth nightly as needed for Anxiety., Disp: 30 tablet, Rfl: 0 Ascorbic Acid (VITAMIN C) 100 MG tablet, Take 1 tablet (100 mg total) by mouth daily., Disp: , Rfl: azelastine (ASTELIN) 0.1 % nasal spray, 2 spray(s) intranasally 2 times a day, PRN for 30 days, Disp: , Rfl: busPIRone (BUSPAR) 15 MG tablet, Take 1 tablet (15 mg total) by mouth 2 (two) times daily., Disp: 180 tablet, Rfl: 1 dicyclomine (BENTYL) 20 MG tablet, Take 1 tablet (20 mg total) by mouth every 6 (six) hours as needed., Disp: 120 tablet, Rfl: 1 estradiol (ESTRACE) 0.1 MG/GM vaginal cream, , Disp: , Rfl: etanercept 50 MG/ML injection, Inject 1 mL (50 mg total) into the skin weekly., Disp: , Rfl: fexofenadine (PIYUSH) 180 MG tablet, Take 1 tablet (180 mg total) by mouth daily., Disp: , Rfl: folic acid (FOLVITE) 1 MG tablet, Take 1 tablet (1 mg total) by mouth daily., Disp: , Rfl: methotrexate 2.5 MG tablet, Take by mouth once a week. Take 6 tablets every 7 days., Disp: , Rfl: montelukast (SINGULAIR) 10 MG tablet, Take 1 tablet (10 mg total) by mouth daily., Disp: 90 tablet,Rfl: 3 multivitamin tablet, Take 2 tablets by mouth daily., Disp: , Rfl: mupirocin (BACTROBAN) 2 % ointment, Apply topically 3 (three) times daily for 7 days., Disp: 22 g, Rfl: 0 nabumetone 500 MG tablet, Take 2 tablets (1,000 mg total) by mouth 2 (two) times daily., Disp: , Rfl: [place]-3 Fatty Acids (FISH OIL) 1200 MG Cap, Take 1 capsule by mouth daily., Disp: , Rfl: polyethylene glycol packet, Take 240 mLs (1 packet total) by mouth daily as needed., Disp: , Rfl: traZODone (DESYREL) 50 MG tablet, Take 1 tablet (50 mg total) by mouth nightly at bedtime., Disp: 30 tablet, Rfl: 5 valACYclovir 1 g tablet, as needed. 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 Judgment: Judgment normal. Filed Vitals: 11/10/23 1529 BP: 112/60 Pulse: 72 Resp: 18 Temp: 98.9 ??F (37.2 ??C) TempSrc: Temporal SpO2: 98% Weight: 76.2 kg (168 lb) Height: 1.727 m (5' 8 ) Diagnoses/Impression: 1. Insomnia due to other mental disorder traZODone (DESYREL) 50 MG tablet 2. Seasonal allergies montelukast (SINGULAIR) 10 MG tablet 3. DURAN (generalized anxiety disorder) busPIRone (BUSPAR) 15 MG tablet 4. Irritable bowel syndrome with both constipation and diarrhea dicyclomine (BENTYL) 20 MG tablet 5. Encounter to establish care with new doctor 6. Nasal crusting mupirocin (BACTROBAN) 2 % ointment Recommendations and Plan: 1. Seasonal allergies Chronic. Stable. Continue Piyush and Singulair daily. Established with cable television access coordinator. - montelukast (SINGULAIR) 10 MG tablet; Take 1 tablet (10 mg total) by mouth daily. Dispense: 90 tablet; Refill: 3 2. DURAN (generalized anxiety disorder) Chronic. Well-controlled. Continue BuSpar. - busPIRone (BUSPAR) 15 MG tablet; Take 1 tablet (15 mg total) by mouth 2 (two) times daily. Dispense: 180 tablet; Refill: 1 3. Irritable bowel syndrome with both constipation and diarrhea Chronic. Stable. Continue Bentyl. - dicyclomine (BENTYL) 20 MG tablet; Take 1 tablet (20 mg total) by mouth every 6 (six) hours as needed. Dispense: 120 tablet; Refill: 1 4. Insomnia due to other mental disorder Chronic. Worsening. Takes Benadryl with some relief. Start trazodone today Keep taking citalopram for 3 weeks and then stop After this continue trazodone at bedtime only Can increase Trazodone to 2-3 tablets at bedtime if needed - traZODone (DESYREL) 50 MG tablet; Take 1 tablet (50 mg total) by mouth nightly at bedtime. Dispense: 30 tablet; Refill: 5 5. Encounter to establish care with new doctor 6. Nasal crusting - mupirocin (BACTROBAN) 2 % ointment; Apply topically 3 (three) times daily for 7 days. Dispense: 22 g; Refill: 0 Follow-up in 6 months. Earlier if needed. She voiced understanding and agrees with the plan All questions answered Orders Placed This Encounter estradiol (ESTRACE) 0.1 MG/GM vaginal cream azelastine (ASTELIN) 0.1 % nasal spray montelukast (SINGULAIR) 10 MG tablet dicyclomine (BENTYL) 20 MG tablet busPIRone (BUSPAR) 15 MG tablet traZODone (DESYREL) 50 MG tablet mupirocin (BACTROBAN) 2 % ointment Reviewed and updated this visit by provider: Meds Problems Surg Hx Dayanara Plaza MD Referring Provider: No ref. provider found PCP: Dayanara Plaza MD OR WATER RESOURCES ENGINEER documented in this encounter Plan of Treatment Upcoming Encounters Date Type Department Care Team (Late st Contact Info) Description 11/14/2024 8:00 AM SENIOR WATER RESOURCES ENGINEER Office Visit [facility] Multispecialty Care - [facility] [address] [facility], [address] [phone] Montserrat Oliver NP 3 [facility] [address] [place] [address] 12/06/2024 9:30 AM SENIOR WATER RESOURCES ENGINEER Appointment [facility] Open MRI [address] [place] [address] [place] [address] [facility] [address] [place] [phone] 03/02/2025 3:20 PM CDT Office Visit [facility] Family & Internal Medicine - [address] [address] [place] [address] [address] [place] [address] documented as of this encounter Visit Diagnoses Diagnosis Insomnia due to other mental disorder- Primary Seasonal allergies Allergic rhinitis, cause unspecified DURAN (generalized anxiety disorder) Generalized anxiety disorder Irritable bowel syndrome with both constipation and diarrhea Encounter to establish care with new doctor Other reasons for seeking consultation Nasal crusting Other diseases of nasal cavity and sinuses documented in this encounter Additional Health Concerns Assessment Noted Time PHQ-9 Depression Total Score: 2 05/27/20 22 11:36 AM CDT documented as of this encounter Care Teams Lead Tank Mechanic Relationship Specialty [place] [address] [address] [place] [address] PCP - General FAMILY PRACTICE 03/01/23 Perez Cervantes MD [address] [place] [id number] RHEUMATOLOGY 09/02/23 Adriana Ma MD [address] [place] [id number] Referring Physician ALLERGY 09/02/23 documented as of this encounter
--- OUTSIDE RECORDS SUMMARY | 2024-11-13 17:11 | XMS_ITS | Encounter Summary ---
Author Organization [facility] Address [address] [place] [address]. [place] [address] [place] [address] Care Team Providers Care Horse Shoer Name Role Phone Dayanara Plaza MD Primary Care Provider [phone] Reason for Visit * Reason Onset Date Comments Other 03/08/2023 Encounter Details Date Type Department Care Team (Late st Contact Info) Description 03/08/[address] [address] [place] [address] [facility]. [address] [place] [address] Other Social History Tobacco Use Types Packs/Day Years [...] Master's degree (e.g., MA, MS, Howard, MEd, CONVEYOR MECHANIC, KEKE) 12/21/2018 Comments No Sex and Gender [...] PM CDT documented as of this encounter Progress Notes * Annalee Keith Adarsh - 03/08/2023 12:33 PM CDT Patient called stating PCP told her the Regular Stress test order is good for a year. At the momentshe is not feeling any symptoms and refuses to have the test done for now. She will call when she is ready to sched. documented in this encounter Plan of Treatment Upcoming Encounters Date Type Department Care Team (Late st Contact Info) Description 11/14/2024 8:00 AM SERVICE LINE COORDINATOR Office Visit [facility] Multispecialty Care - [address], [address] [place] [phone] Montserrat Oliver NP 3 [facility] [address] [place] [phone] 12/06/2024 9:30 AM SERVICE LINE COORDINATOR Appointment [facility] Open MRI [address] [place] [address] [place] [address] [facility] [address] [place] [address] 03/02/2025 3:20 PM CDT Office Visit [facility] Family & Internal Medicine - [address] [address] [place] [address] [address] [place] [address] documented as of this encounter Visit Diagnoses Not on filedocumented in this encounter Additional Health Concerns Assessment Noted Time PHQ-9 Depression Total Score: 2 05/27/20 22 11:36 AM CDT documented as of this encounter Care Teams Horse Shoer Relationship Specialty Start [place] [address] [address] [place] [address] PCP - General FAMILY PRACTICE 03/01/23 documented as of this encounter
--- OUTSIDE RECORDS SUMMARY | 2024-11-13 17:11 | XMS_ITS | Encounter Summary ---
Author Organization [facility] Address [address] [place] [address]. [place], [place] [address] [place] [address] Care Team Providers Care Corking Machine Operator Name Role Phone Dayanara Plaza MD Primary Care Provider [phone] Perez Cervantes MD Unavailable Adriana Ma MD Unavailable [phone] Reason for Visit * Reason Comments Medication Management Encounter Details Date Type Department Care Team (Late st Contact Info) Description 05/11/2024 3:20 PM CDT Office Visit [facility] Family & Internal Medicine [address] [address] Dayanara Plaza MD [address] [place] [address]. [address] [place] [address] Medication Management Social History Tobacco Use Types Packs/Day Years [...] th e electric, gas, oil, or water [employer] threatened to shut off services in your [...] Recorded Patient Health Questionnaire-2 Score 0 04/03/2024 [facility] - Occupational [...] any time in the past 12 m [facility], were you homeless or living in a halfway (including now)? No 05/23/2024 Education Answer Date Recorded What is the highest level of school you have completed or the highest degree you have received? Master's degree (e.g., MA, MS, Howard, MEd, CONTACT LENS BLOCKER AND CUTTER, KEKE) 12/21/2018 Comments No Sex and Gender [...] Sign Reading Time Taken Comments Blood Pressure 100/60 05/11/2024 3:23 PM CDT Pulse 73 05/11/2024 3:23 PM CDT Temperature 36.6 ??C (97.9 ??F) 05/11/2024 3:23 PM CD T Respiratory Rate 14 05/11/2024 3:23 PM CDT Oxygen Saturation 97% 05/11/2024 3:23 PM CDT Inhaled Oxygen Concentration - - Weight 78.5 kg (173 lb) 05/11/2024 3:23 PM CDT Height 172.7 cm (5' 8 ) 05/11/2024 3:23 PM CDT Body Mass Index 26.3 05/11/2024 3:23 PM CDT documented in this encounter Functional Status documented as of this encounter Mental Status * Question Answer Entry Date Author Status Because of a physical, mental, or emotional condition, do you have serious difficulty concentrating, remembering, or making decisions? No 05/23/2024 5:13 PM CDT Angélica Johnson RN Active documented in this encounter Patient Instructions * Patient Instructions* Dayanara lPaza MD - 05/11/2024 3:20 PM CDT START 1000 mg of calcium and 400-800 IU of vitamin D daily documented in this encounter Progress Notes * Supriya Cunningham LPN - 05/11/2024 3:20 PM CDTAddended by: SUPRIYA CUNNINGHAM on: 06/02/2024 03:41 PM Modules accepted: Orders * Dayanara Plaza MD - 05/11/2024 3:20 PM CDT Reason for Visit: Medication Management History of Present Illness: HPI farzana Pascual is a pleasant 58-year-old female with past medical history but not limited to generalized anxiety, depression, seasonal allergies, GERD, IBS, RA on mtx, polyarthritis, seasonalallergies was seen in office today for 6-month follow-up appointment. She states she is feeling better. Trazodone helps. Denies side effects. Sometimes if she wakes up at night she cannot fall back asleep. She takes xanax prn x half tablet for sleep when nothing else works.last refill was in February 2023. Last dose month ago. She takes bentyl PRN x for IBS flare ups. Has not filled since 2021. Wants to keep. sHE IS GAINING WEIGHT. fH OF DIABETES in [place]. SPECIALISTS: drainage inspector, Regulatory Attorney. Sees critical care physician assistant.....Parking Enforcement Technician for [employer]. No other concerns for today ROS: Review of Systemsnegative except HPI Medications: Current Outpatient Medications: dicyclomine (BENTYL) 20 MG tablet, Take 1 tablet (20 mg total) by mouth every 6 (six) hours as needed., Disp: 60 tablet, Rfl: 2 estradiol (ESTRACE) 0.1 MG/GM vaginal cream, , [...] BY MOUTH DAILY., Disp: 90 tablet,Rfl: 3 multivitamin tablet, Take 2 tablets by mouth daily., Disp: , Rfl: nabumetone 500 MG tablet, Take 2 tablets (1,000 mg total) by mouth 2 (two) times daily., Disp: , Rfl: polyethylene glycol packet, Take 240 mLs (1 packet total) by mouth daily as needed., Disp: , Rfl: traZODone (DESYREL) 100 MG tablet, Take 1.5 tablets (150 mg total) by mouth nightly at bedtime., Disp: 135 tablet, Rfl: 3 valACYclovir 1 g tablet, as needed. , Disp: , Rfl: ALPRAZolam (XANAX) 0.25 MG tablet, Take 1 tablet (0.25 mg total) by mouth nightly as needed for Anxiety or Sleep. FOR ANXIETY, Disp: 30 tablet, Rfl: 0 gabapentin (NEURONTIN) 100 MG capsule, , Disp: , Rfl: Review of patient's allergies indicates: Allergen Reactions Levofloxacin Nausea and Vomiting, Nausea Only, Hallucinations and Other (see comment) hallucinations Other reaction(s): Other hallucinations Past Medical History: Diagnosis Date Anxiety Cataract surgery 2020 COVID-19 GERD (gastroesophageal reflux disease) Heart murmur IBS (irritable bowel syndrome) Inflammatory arthritis Plantar fasciitis RA (rheumatoid arthritis) ([facility]) Wears glasses Past Surgical History: Procedure Laterality Date CHOLECYSTECTOMY COLONOSCOPY N/A 03/17/2021 COLONOSCOPY-NORMAL performed by Niall Matute MD at [facility] GI COLONOSCOPY STOMA DX INCLUDING COLLJ SPEC SPX AH 9 yrs. 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 Judgment: Judgment normal. Filed Vitals: 05/11/24 1523 BP: 100/60 Pulse: 73 Resp: 14 Temp: 97.9 ??F (36.6 ??C) TempSrc: Temporal SpO2: 97% Weight: 78.5 kg (173 lb) Height: 1.727 m (5' 8 ) Diagnoses/Impression: 1. Lipid screening LIPID PANEL 2. Insomnia due to other mental disorder traZODone (DESYREL) 100 MG tablet 3. Anxiety 4. Irritable bowel syndrome with both constipation and diarrhea dicyclomine (BENTYL) 20 MG tablet 5. Thyroid disorder screening TSH W/REFLEX 6. Diabetes mellitus screening HEMOGLOBIN, GLYCOSYLATED 7. Weight gain TSH W/REFLEX 8. Vitamin D deficiency VITAMIN D, 25 OH 9. Need for ijzbaxrpuy-scwbhzc-bwyngzidi (Tdap) vaccine [31571] Adacel (Tdap) Recommendations and Plan: Increase trazodone to 150 mg qD Orders Placed This Encounter LIPID PANEL HEMOGLOBIN, GLYCOSYLATED TSH W/REFLEX VITAMIN D, 25 OH [[id number]] Adacel (Tdap) traZODone (DESYREL) 100 MG tablet dicyclomine (BENTYL) 20 MG tablet Reviewed and updated this visit by provider: Dayanara Plaza MD Referring Provider: No ref. provider found PCP: Dayanara Plaza MD documented in this encounter Plan of Treatment Upcoming Encounters Date Type Department Care Team (Late st Contact Info) Description 11/14/2024 8:00 AM LICENSED ACUPUNCTURIST Office Visit [facility] Multispecialty Care - [facility] 3 [facility], [address] [place] [phone] Montserrat Oliver, DOREEN 3 [facility] [address] [place] [address] 12/06/2024 9:30 AM LICENSED ACUPUNCTURIST Appointment [facility] Open MRI [address] [place] [address] [place] [address] [address] [place] [address] 03/02/2025 3:20 PM CDT Office Visit [facility] Family & Internal Medicine - [place] [address] [place] [address] [place] [address] [facility]. [address] [place] [address] documented as of this encounter Goals Goal Patient Goal Type Associated Problems Recent Progress Patient-Stated? Author Family - family caregiver with be involved in care transitions and discharge planning Lifestyle No Nessa Pan, CUSTODIAN ATHLETIC EQUIPMENT documented as of this encounter Results * VITAMIN D, 25 OH (06/02/2024 3:43 PM CDT) VITAMIN D 25 HYDROXY S/P/B 51 30 - 100 NG/ML 06/02/2024 6:00 PM CDT [facility] Comment: ? INTERPRETATION ? DEFICIENT ??<20 ? INSUFFICIENT 20-29 ?SUFFICIENT 30-100 06/02/2024 3:43 PM CDT Dayanara Plaza MD LABORATORY Final Result Performing Organization Address [facility] de Phone Number [facility] [address] [place] [address], * TSH W/REFLEX (06/02/2024 3:43 PM CDT) TSH 0.707 0.358 - 3.74 uIU/ML 06/02/2024 5:47 PM CDT [facility] Comment: HIGH DOSES OF BIOTIN MAY INTERFERE WITH THIS TEST RESULT. CORRELATION TO CLINICAL HISTORY AND PRESENTATION RECOMMENDED. FREE T4 NOT INDICATED 06/02/2024 3:43 PM CDT Dayanara Plaza MD LABORATORY Final Result Performing Organization Address [facility] Co de Phone Number [facility] [address] [place] [address], * HEMOGLOBIN, GLYCOSYLATED (06/02/2024 3:43 PM CDT) HGB A1C 5.3 <5.7 % 06/02/2024 6:50 PM CDT [facility] Comment: INCREASED RISK OF DIABETES <5.7% ?NON-DIABETES 5.7-6.4% INCREASED RISK FOR FUTURE DIABETES > OR = 6.5 CONSISTENT WITH DIABETES STANDARDS OF MEDICAL CARE IN DIABETES-2010 DIABETES CARE, 33(SUPP 1): S1-S61,2010 ESTIMATED AVG GLUCOSE 105 mg/dL 06/02/2024 6:50 PM CDT [facility] 06/02/2024 3:43 PM CDT Dayanara Plaza MD LABORATORY Final Result Performing Organization Address City/State/[facility] Co de Phone Number [facility] [address] [place] [address], documented in this encounter Visit Diagnoses Diagnosis Lipid screening- Primary Screening for lipoid disorders Insomnia due to other mental disorder Anxiety Anxiety state, unspecified Irritable bowel syndrome with both constipation and diarrhea Thyroid disorder screening Screening for thyroid disorder Diabetes mellitus screening Screening for diabetes mellitus Weight gain Abnormal weight gain Vitamin D deficiency Unspecified vitamin D deficiency Need for kmpzhzlbxx-mnxlbyo-ltneuumqm (Tdap) vaccine Need for prophylactic vaccination with combined mnettliduf-cemsbkl-paifekfev (DTP) vaccine documented in this encounter Additional Health Concerns Assessment Noted Time PHQ-9 Depression Total Score: 0 04/03/20 24 10:56 AM CDT documented as of this encounter Care Teams Corking Machine Operator Relationship Specialty [place] [address] [facility]. [address] [place] [address] PCP - General FAMILY PRACTICE 03/01/23 Perez Cervantes MD [address] [place] [address] RHEUMATOLOGY 09/02/23 Adriana Ma MD [address] [place] [address] Referring Physician ALLERGY 09/02/23 documented as of this encounter
--- OUTSIDE RECORDS SUMMARY | 2024-11-13 17:11 | XMS_ITS | Encounter Summary ---
Author Organization [facility] Address [address] [place] [address]. [place] [address] [place] [address] Care Team Providers Care White Kid Buffer Name Role Phone Dayanara Plaza MD Primary Care Provider [phone] Perez Cervantes MD Unavailable Adriana Ma MD Unavailable [phone] Encounter Details Date Type Department Care Team (Late st Contact Info) Description 07/27/2023 [place] Message Enc [facility] Family & Internal Medicine [facility] [id number] [place] [phone] [place] [id number] [place] [address]. 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 file documented as of this encounter Progress Notes * Molly Perez RN - 07/28/2023 4:32 PM CDT Please advise documented in this encounter Plan of Treatment Upcoming Encounters Date Type Department Care Team (Late st Contact Info) Description 11/14/2024 8:00 AM ELECTRONIC INTELLIGENCE OFFICER Office Visit [facility] Multispecialty Care - [facility] 3 [facility], [address] [place] [phone] Montserrat Oliver NP 3 [facility] [address] [place] [address] 12/06/2024 9:30 AM ELECTRONIC INTELLIGENCE OFFICER Appointment [facility] Open MRI [address] [place] [address] [place] [address] [facility]. [address] [place] [phone] 03/02/2025 3:20 PM CDT Office Visit [facility] Medical [facility] Family & Internal Medicine - [address] [address] [place] [address] [facility]. [address] [place] [phone] documented as of this encounter Visit Diagnoses Diagnosis Immunocompromised ([facility]/HCC HHS/HCC)- Primary Unspecified immunity deficiency Travel advice encounter At increased risk of exposure to COVID-19 virus documented in this encounter Additional Health Concerns Infection Onset Date Last Indicated Resolved Time COVID-19 Rule Out 04/03/2024 04/03/2024 04/03/2024 11:38 AM CDT Assessment Noted Time PHQ-9 Depression Total Score: 2 05/27/20 11:36 AM CDT documented as of this encounter Care Teams White Kid Buffer Relationship Specialty Start [place] [address] [facility]. [address] [place] [address] PCP - General FAMILY PRACTICE 03/01/23 Perez Cervantes MD [address] [place] [address] RHEUMATOLOGY 09/02/23 Adriana Ma MD [address] [place] [address] Referring Physician ALLERGY 09/02/23 documented as of this encounter
--- OUTSIDE RECORDS SUMMARY | 2024-11-13 17:11 | XMS_ITS | Encounter Summary ---
Author Organization [facility] Address [address] [place] [address]. [place] [address] [place] [address] Care Team Providers Care Guitar Repairer Name Role Phone Dayanara Plaza MD Primary Care Provider [phone] Perez Cervantes MD Unavailable Adriana Ma MD Unavailable [phone] Encounter Details Date Type Department Care Team (Latest Contact Info) Description 05/22/2024 Travel Social History Tobacco Use Types Packs/Day [...] from your doctor or pharmacy? Never 05/23/2024 [facility] Utilities Answer Date Recorded In the past [...] Recorded Patient Health Questionnaire-2 Score 0 04/03/2024 [facility] of Occupat ional Health - [...] time in the past 12 m [facility], were you homeless or living in a long term (including now)? No 05/23/2024 Education Answer Date Recorded What is the highest level of school you have completed or the highest degree you have received? Master's degree (e.g., MA, MS, Howard, MEd, ELECTRONIC RESOURCES LIBRARIAN, KEKE) 12/21/2018 Comments No Sex and Gender [...] st Contact Info) Description 11/14/2024 8:00 AM CPC Office Visit [facility] Multispecialty Care - [facility] 3 [facility], [address] [place] [phone] Montserrat Oliver NP 3 [facility] [address] [place] [address] 12/06/2024 9:[address] [facility] [address] [place] [address] [place] [address] [facility]. [address] [place] [address] 03/02/2025 3:20 PM CDT Office Visit [facility] Family & Internal Medicine - [address] [phone] [place] [address] [address] [place] [phone] documented as of this encounter Visit Diagnoses Not on filedocumented in this encounter Additional Health Concerns Assessment Noted Time PHQ-9 Depression Total Score: 0 04/03/20 10:56 AM CDT documented as of this encounter Care Teams Guitar Repairer Relationship Specialty Start [place] [address] [facility] [address] [place] [address] PCP - General FAMILY PRACTICE 03/01/23 Perez Cervantes MD [address] [place] [phone] RHEUMATOLOGY 09/02/23 Adriana Ma MD [address] [place] [address] Referring Physician ALLERGY 09/02/23 documented as of this encounter
--- OUTSIDE RECORDS SUMMARY | 2024-11-13 17:11 | XMS_ITS | Encounter Summary ---
Author Organization [facility] Address [address] [place] [address]. 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 3 [facility], [address] [place] [address] Montserrat Oliver NP 3 [facility] [address] [place] [address] 12/06/2024 9:30 AM INTERMEDIATE SCHOOL TEACHER Appointment [facility] Open MRI [address] [place] [address] [place] [address] [facility] [place] [address] 03/02/2025 3:20 PM CDT Office Visit [facility] Family & Internal Medicine - [place] [address] [place] [phone] [place] [address] [facility] [address] [place] [address] documented as of this encounter Visit Diagnoses Not on filedocumented in this encounter Additional Health Concerns Assessment Noted Time PHQ-9 Depression Total Score: 2 05/27/20 22 11:36 AM CDT documented as of this encounter Care Teams Bioinformaticist Relationship Specialty Start Date End Date Dayanara Plaza MD [address] [place] [address] [address] [place] [address] PCP - General FAMILY PRACTICE 03/01/23 Perez Cervantes MD [address] [phone] RHEUMATOLOGY 09/02/23 Adriana Ma MD [address] [place] [address] Referring Physician ALLERGY 09/02/23 documented as of this encounter
--- OUTSIDE RECORDS SUMMARY | 2024-11-13 17:11 | XMS_ITS | Encounter Summary ---
Author Organization [facility] Address [address] [place] [address]. [place] [address] [place] [address] Care Team Providers Care Cooking Appliance Repair Technician Name Role Phone Dayanara Plaza MD Primary Care Provider [phone] Reason for Visit * Reason Comments URI Cough, sore throat, chest congestion, left ear clogged, headache, low grade fever X 10 days Encounter Details Date Type Department Care Team (Late st Contact Info) Description 03/25/2023 3:20 PM CDT Office Visit [facility] Family & Internal Medicine [facility] [address] [place] [address] [place] [address] [place] [address] URI (Cough, sore throat, chest congestion, left ear clogged, headache, low grade fever X 10 days) Social History Tobacco Use Types Packs/Day Years [...] Master's degree (e.g., MA, MS, Howard, MEd, PULLMAN CAR REPAIRER, KEKE) 12/21/2018 Comments No Sex and Gender [...] Sign Reading Time Taken Comments Blood Pressure 98/63 03/25/2023 3:15 PM CDT Pulse 83 03/25/2023 3:15 PM CDT Temperature 37.3 ??C (99.1 ??F) 03/25/2023 3:15 PM CD T Respiratory Rate 12 03/25/2023 3:15 PM CDT Oxygen Saturation 95% 03/25/2023 3:15 PM CDT Inhaled Oxygen Concentration - - Weight 74.8 kg (165 lb) 03/25/2023 3:15 PM CDT Height 172.7 cm (5' 8 ) 03/25/2023 3:15 PM CDT Body Mass Index 25.09 03/25/2023 3:15 PM CDT documented in this encounter Patient Instructions * Attachments The following attachments cannot be sent through Care Everywhere. * Acute Bronchitis Discharge Instructions, Adult (Salvadorean) documented in this encounter Progress Notes * TANYA Root - 03/25/2023 3:20 PM CDTAddended by: PRAKASH STAPLES on: 03/25/2023 06:09 PM Modules accepted: Orders * TANYA Root - 03/25/2023 3:20 PM CDT Images from the original note were not included. _ Reason for Visit: URI (Cough, sore throat, chest congestion, left ear clogged, headache, low grade fever X 10 days) History of Present Illness: CESARIO Pascual is a 58-year-old female here for patient or evaluation through the walk-in clinic for symptoms of upper respiratory infection to include nasal congestion, sore throat, and headache. Patient denies symptoms of visual disturbance or vomiting. Patienthas noticed a fever. Patient has a dry barking persistent cough with out wheezing. Patient denies shortness of breath. Patient has not had loose stools. Patient has been symptomatic for 10 days and advancing over the last 3 is not improving with symptoms. ROS: Review of Systems Feeling ill. Denies vision or hearing problems. Denies dysphagia, heartburn or indigestion. No dyspnea or chest pain on exertion. No nausea, abdominal pain, change in bowel habits, black or bloody stools. No urinary tract symptoms. No muscle or joint aches or pains. No foot or leg edema. No numbness, tingling,or weakness. No anxiety or depressive symptoms, Sleeping well. No significant weight gain or loss. Positive fatigue. Medications: Outpatient Medications Marked as Taking for the 03/25/23 encounter (Office Visit) with TANYA Root Medication Sig Dispense Refill ALPRAZolam (XANAX) 0.25 MG tablet Take 1 tablet (0.25 mg total) by mouth nightly as needed for Anxiety. 30 tablet 0 amoxicillin (AMOXIL) 500 MG tablet Take 1 tablet (500 mg total) by mouth 3 (three) times daily for 10 days. for 10 days 30 tablet 0 Ascorbic Acid (VITAMIN C) 100 MG tablet Take 1 tablet (100 mg total) by mouth daily. azelastine 0.1 % nasal spray 2 sprays by Nasal route. benzonatate (TESSALON PERLES) 100 MG capsule Take 1 capsule (100 mg total) by mouth 3 (three) timesdaily as needed for Cough. 20 capsule 0 BUSPIRONE 15 MG tablet TAKE 1 TABLET BY MOUTH TWICE A DAY 180 tablet 0 citalopram (CELEXA) 20 MG tablet Take 1 tablet (20 mg total) by mouth daily. 30 tablet 0 dicyclomine (BENTYL) 20 MG tablet Take 1 tablet (20 mg total) by mouth every 6 (six) hours as needed. 120 tablet 0 Estradiol 10 MCG vaginal tablet etanercept 50 MG/ML injection Inject 1 mL (50 mg total) into the skin weekly. fexofenadine (PIYUSH) 180 MG tablet daily. fexofenadine 180 MG tablet Take 1 tablet (180 mg total) by mouth. folic acid (FOLVITE) 1 MG tablet daily. folic acid 1 MG tablet Take 1 tablet (1 mg total) by mouth daily. methotrexate 2.5 MG tablet TAKE 8 TABLETS EVERY 7 DAYS methylPREDNISolone, SALLY, (MEDROL DOSEPAK) 4 MG tablet 6 TABLETS ON DAY ONE, 5 TABLETS DAY TWO, 4 TABLETS DAY THREE, 3 TABLETS DAY FOUR, 2 TABLETS DAY FIVE, AND 1 TABLET DAY SIX 1 each 0 montelukast 10 MG tablet Take 1 tablet (10 mg total) by mouth daily. 90 tablet 1 multivitamin tablet Take 2 tablets by mouth daily. nabumetone 500 MG tablet Take 2 tablets (1,000 mg total) by mouth 2 (two) times daily. [place]-3 Fatty Acids (FISH OIL) 1200 MG Cap 1 cap polyethylene glycol packet Take 240 mLs (1 [...] bowel syndrome) Inflammatory arthritis RA (rheumatoid arthritis) ([facility]) Wears glasses Past Surgical History: Procedure Laterality Date CHOLECYSTECTOMY COLONOSCOPY AH 9 yrs. COLONOSCOPY N/A 03/17/2021 COLONOSCOPY-NORMAL performed by Niall Matute MD at [facility] GI LAMINECTOMY,LUMBAR SEPTOPLASTY Social History Tobacco Use Smoking [...] Name Status Mother Alive Father Physical Exam Constitutional: Patient is oriented to person, place, and time. Patient appears well-developed and well-nourished. HENT: Right Ear: External ear normal. Tympanic membrane reveals air-fluid levels bilaterally. Left Ear: External ear normal. Head: Normocephalic. Frontal sinus tenderness Nose: Nose normal. Turbinates are swollen Mouth/Throat: Oropharynx is clear and moist. Positive postnasal drainage Eyes: Pupils are equal, round, and reactive to light. Neck: No JVD present. No thyromegaly present. No nuchal rigidity Cardiovascular: Normal rate, regular rhythm, normal heart sounds and intact distal pulses. No murmur heard. Pulmonary/Chest: No respiratory distress. Patient has no wheezes. Patient has no rales. Patient exhibits no rales. Mild rhonchi on the right Abdominal: Patient exhibits no distension and no mass. There is no tenderness. There is no rebound and no guarding. Musculoskeletal: Normal range of motion. Patient exhibits no edema, tenderness or deformity. Lymphadenopathy: Patient has positive cervical adenopathy. Neurological: Patient is alert and oriented to person, place, and time. Skin: No rash noted. No erythema. Psychiatric: Patient has a normal mood and affect. The behavior is normal. Thought content normal. View : No data to display. Vitals: 03/25/23 1515 Patient Position: Sitting BP Location: Right arm Cuff size: Adult Regular BP: 98/63 Pulse: 83 Body mass index is 25.09 kg/m??. Assessment and Plan Encounter Diagnose(s) ICD-10-CM ICD-9-CM SNOMED CT(R) 1. Acute cough R05.1 786.2 COUGH benzonatate (TESSALON PERLES) 100 MG capsule amoxicillin (AMOXIL) 500 MG tablet methylPREDNISolone, SALLY, (MEDROL DOSEPAK) 4 MG tablet 2. Acute non-recurrent frontal sinusitis J01.10 461.1 ACUTE FRONTAL SINUSITIS Orders Placed This Encounter [place]-3 Fatty Acids (FISH OIL) 1200 MG Cap fexofenadine (PIYUSH) 180 MG tablet folic acid (FOLVITE) 1 MG tablet benzonatate (TESSALON PERLES) 100 MG capsule amoxicillin (AMOXIL) 500 MG tablet methylPREDNISolone, SALLY, (MEDROL DOSEPAK) 4 MG tablet Patient was told to push liquids and get lots of rest. Patient was told to use Tylenol for fever. Patient was told that if symptoms do not improve to utilize the emergency room, call their PCP, or follow back up with the walk-in clinic. If patient needs any additional time off not discussed and spelled out in a work release at this office visit they will need [...] Portions of this note were dictated using WOMN speech recognition software. Occasional wrong wordor sound-alike [...] st Contact Info) Description 11/14/2024 8:00 AM JOURNEYMAN PIPEFITTER Office Visit [facility] Multispecialty Care - [facility] 3 [facility], [address] [place] [phone] Montserrat Oliver NP 3 [facility] [address] [place] [address] 12/06/2024 9:30 AM JOURNEYMAN PIPEFITTER Appointment [facility] Open MRI [address] [place] [address] [place] [address] [facility] [place] [phone] 03/02/2025 3:20 PM CDT Office Visit [facility] Family & Internal Medicine - [address] [phone] [place] [address] [facility] [place] [address] documented as of this encounter Visit Diagnoses Diagnosis Acute cough- Primary Acute non-recurrent frontal sinusitis documented in this encounter Additional Health Concerns Assessment Noted Time PHQ-9 Depression Total Score: 2 05/27/20 22 11:36 AM CDT documented as of this encounter Care Teams Cooking Appliance Repair Technician Relationship Specialty [place] [address] [address] [place] [address] PCP - General FAMILY PRACTICE 03/01/23 documented as of this encounter
--- OUTSIDE RECORDS SUMMARY | 2024-11-13 17:11 | XMS_ITS | Encounter Summary ---
Author Organization [facility] Address [address] [place] [address]. [place], [place] [address] [place] [address] Care Team Providers Care Citrix Lead Name Role Phone Dayanara Plaza MD Primary Care Provider [phone] Encounter Details Date Type Department Care Team (Latest Contact Info) Description 08/30/2023 5:10 PM CDT - 08/30/2023 11:59 PM CDT Hospital Encounter [facility] [address] [place] [address] [place] [address] [place], [place] [phone] Discharge Disposition: Home or Self Care (Routine [...] Master's degree (e.g., MA, MS, Howard, MEd, CYBER SYSTEMS ENGINEER, KEKE) 12/21/2018 Comments No Sex and [...] needed for Anxiety. 30 tablet 03/03/2023 4 amoxicillin-clavul anate (AUGMENTIN) 875-125 MG tabletIndications: Acute cystitis without hematuria Take 1 tablet (875 mg total) by mouth 2 (two) times daily for 10 days. 20 tablet 08/30/2023 3 Ascorbic Acid (VITAMIN C) 100 MG tablet Take 1 tablet (100 mg total) by mouth daily. 4 busPIRone (BUSPAR) 15 MG tabletIndications: DURAN (generalized anxiety disorder) TAKE 1 TABLET (15 MG TOTAL) BY MOUTH 2 (TWO) TIMES DAILY. 180 tablet 1 05/30/2023 3 citalopram (CELEXA) 20 MG tabletIndications: DURAN (generalized anxiety disorder) TAKE 1 TABLET BY MOUTH DAILY 30 tablet 06/21/2023 3 cyclobenzaprine (FLEXERIL) 5 MG tabletIndications: Flank pain Take 1 tablet (5 mg total) by mouth 3 (three) times daily as needed for Muscle Spasms. 30 tablet 08/30/2023 3 dicyclomine (BENTYL) 20 MG tabletIndications: Irritable [...] mouth 2 (two) times daily. 11/24/2021 4 [place]-3 Fatty Acids (FISH OIL) 1200 MG Cap Take 1 capsule by mouth daily. 4 polyethylene glycol packet Take 240 mLs (1 packet total) by mouth daily as needed. 4 documented as of this encounter Plan of Treatment Upcoming Encounters Date Type Department Care Team (Late st Contact Info) Description 11/14/2024 8:00 AM GERIATRIC PHYSICAL THERAPIST Office Visit [facility] Multispecialty Care - [facility] 3 [facility], [address] [place] [phone] Montserrat Oliver NP 3 [facility] [address] [place] [address] 12/06/2024 9:30 AM GERIATRIC PHYSICAL THERAPIST Appointment [facility] Open MRI [address] [place] [address] [place] [address] [facility] [address] [place] [phone] 03/02/2025 3:20 PM CDT Office Visit [facility] Family & Internal Medicine - [address] [phone] [place] [address] [facility] Darlene. [address] [place] [address] documented as of this encounter Procedures Procedure Name Priority Date/Time Associated Diagnosis Comments URINE BACTERIA CULTURE Routine 08/30/2023 1:37 PM CDT Acute cystitis without hematuria documented in this encounter Results * CULTURE URINE (08/30/2023 1:37 PM CDT) SPEC DESCRIPTION URINE CLEAN CATCH 08/30/2023 5:11 PM CDT [facility] SPECIAL REQUESTS NO SPECIAL REQUEST 08/30/2023 5:11 PM CDT [facility] CULTURE RESULT NO GROWTH 2 DAYS 09/01/2023 7:46 AM CDT [facility] URINE SPECIMEN OBTAINED BY CLEAN CATCH PROCEDURE / Unknown 08/30/2023 1:37 PM CDT 08/30/2023 5:21 PM CDT us Yasmin MARTÍNEZ MICROBIOLOGY - GENERAL ORDER ADELAIDE Final Result [facility] [address] [place] [address], [place] [phone] [facility] [address] [place] [address], [place] [phone] documented in this encounter Visit Diagnoses Diagnosis Acute cystitis without hematuria Acute cystitis documented in this encounter Additional Health Concerns Assessment Noted Time PHQ-9 Depression Total Score: 2 05/27/20 22 11:36 AM CDT documented as of this encounter Care Teams Citrix Lead Relationship Specialty [place] [address] [address] [place] [address] PCP - General FAMILY PRACTICE 03/01/23 documented as of this encounter
--- OUTSIDE RECORDS SUMMARY | 2024-11-13 17:11 | XMS_ITS | Encounter Summary ---
Author Organization [facility] Address [address] [place] [address]. [place] [address] [place] [address] Care Team Providers Care Pill Machine Operator Name Role Phone Dayanara Plaza MD Primary Care Provider [phone] Perez Cervantes MD Unavailable Adriana Ma MD Unavailable [phone] Reason for Visit * Auth/Cert (Routine) Specialty Diagnoses / Procedures Referred By Chalino bazan Referred To Contact Diagnoses PLANTAR FASCITIS Procedures ENDOSCOPIC PLANTAR FASCIA RELEASE RIGHT FOOT Rhiannon Lombardi DPM [address] [address] Phone: tel: fax: Referral ID Status Reason Start Date Expiration Date Visits Re quested Visits Authorized [id number] 1 1 Encounter Details Date Type Department Care Team (Latest Contact Info) Description 09/10/2023 7:53 AM CDT - 09/10/2023 12:56 PM CDT Hospital Encounter [facility] [place] [address] Rhiannon Lombardi DPM [address] [phone] Discharge Disposition: Home or Self Care (Routine [...] Master's degree (e.g., MA, MS, Howard, MEd, BROKE BEATER, KEKE) 12/21/2018 Comments No Sex and Gender [...] Sign Reading Time Taken Comments Blood Pressure 115/68 09/10/2023 12:33 PM CDT Pulse 67 09/10/2023 12:33 PM CDT Temperature 36.9 ??C (98.5 ??F) 09/10/2023 12:33 PM C DT Respiratory Rate 16 09/10/2023 12:33 PM CDT Oxygen Saturation 99% 09/10/2023 12:33 PM CDT Inhaled Oxygen Concentration - - [...] Care Everywhere. * Plantar Fasciotomy Discharge Instructions (Guyanese) * Surgical Wound Discharge Instructions (Guyanese) documented in this encounter Medications at Time [...] mouth 2 (two) times daily. 11/24/2021 4 [place]-3 Fatty Acids (FISH OIL) 1200 MG Cap Take 1 capsule by mouth daily. 4 polyethylene glycol packet Take 240 mLs (1 packet total) by mouth daily as needed. 4 documented as of this encounter H&P Notes * Rhiannon Lombardi DPM - 09/10/2023 9:58 AM CDT [facility] 58-year-[facility] female Date of Service: 09/10/2023 CHIEF [...] Inflammatory arthritis Plantar fasciitis RA (rheumatoid arthritis) ([facility]) ([facility]) Wears glasses PSH: Past Surgical History: Procedure Laterality Date CHOLECYSTECTOMY COLONOSCOPY AH 9 yrs. COLONOSCOPY N/A 03/17/2021 COLONOSCOPY-NORMAL performed by Niall Matute MD at [facility] GI EYE SURGERY 2020 cataract extraction LAMINECTOMY,LUMBAR SEPTOPLASTY ALL: Allergies Allergen Reactions Levofloxacin Nausea and Vomiting, Nausea Only, Hallucinations and Other (see comment) hallucinations Other reaction(s): Other hallucinations MEDS: Current: ceFAZolin 2 g Intravenous Dairy Feed Mixing Operator to OR scopolamine 1 patch Transdermal Q72H Current Facility-Administered Medications: ceFAZolin (ANCEF) 2 g in NS 100 mL IVPB, 2 g, Intravenous, Dairy Feed Mixing Operator to OR, Rhiannon Lombardi DPM scopolamine (TRANSDERM-SCOP) 1 MG/3DAYS patch 1 patch, 1 patch, Transdermal, Q72H, Osiel Sahu MD, 1 patch at 09/10/23 0850 Social History Socioeconomic History Marital status: Spouse name: Cl Number of children: 4 Highest education level: Master's degree (e.g., MA, MS, Howard, MEd, BROKE BEATER, KEKE) 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 Signature/Date: RHIANNON LOMBARDI #[id number] /DORIS AND GROUNDS SUPERVISOR * OR PreOp - Hilaria Powers CNP - 09/02/2023 12:59 PM CDT Chart reviewed. Per phone interview, patient denies any SOB/CP with 2 FOS or recent changes in activity tolerance in past 6 months. Per phone interview, patient denies having a drapery hanger. Recent EKG copied. EKG 09/01/23 SINUS RHYTHM [...] EKG - 09/01/23 Do you see a drapery hanger? Who is it? No Covid vaccinated and [...] st Contact Info) Description 11/14/2024 8:00 AM TURF AND GROUNDS SUPERVISOR Office Visit [facility] Medical Group Multispecialty Care - [facility] 3 [facility], [address] [place] [phone] Montserrat Oliver NP 3 [facility] [address] [place] [address] 12/06/2024 9:30 AM TURF AND GROUNDS SUPERVISOR Appointment [facility] Open MRI [address] [place] [address] [place] [address] [address] [place] [phone] 03/02/2025 3:20 PM CDT Office Visit [facility] Medical Group Family & Internal Medicine [facility] [address] [place] [address] [place] [address] [facility]. [address] [place] [address] documented as of this encounter Procedures Procedure Name Priority Date/Time Associated Diagnosis Comments FASCIOTOMY PLANTAR HEEL SPUR ENDOSCOPIC 09/10/2023 10:46 AM CDT PLANTAR FASCITIS Case Notes SCHED BY FAX 07/02 [facility] PHONE ASSESS Special Needs SCOPE PROCEDURE GENERIC 09/10/2023 9:0 8 AM CDT documented in this encounter Results * PROCEDURE GENERIC (09/10/2023 9:08 AM CDT) Rhiannon [facility] Edited Result - Final documented in this encounter Visit Diagnoses Diagnosis Plantar fasciitis- Primary Plantar fascial fibromatosis documented in this encounter Administered Medications Inactive Administered Medications - up to 3 most recent administrations Medication Order MAR Action Action Date Dose Rate Site scopolamine (TRANSDERM-SCOP) 1 MG/3DAYS patch 1 [...] (COMPLETED) 2 g, Intravenous, at 200 mL/hr, at home independent call center agent to O.R., 1 dose, First dose on [...] documented as of this encounter Care Teams Pill Machine Operator Relationship Specialty [place] [address] [facility] [address] [place] [address] PCP - General FAMILY PRACTICE 03/01/23 Perez Cervantes MD [facility] DIV [place] [phone] RHEUMATOLOGY 09/02/23 Adriana Ma MD [address] [place] [phone] Referring Physician ALLERGY 09/02/23 documented as of this encounter
--- OUTSIDE RECORDS SUMMARY | 2024-11-13 17:11 | XMS_ITS | Encounter Summary ---
Author Organization [facility] Address [address] [place] [address]. [place], [place] [address] [place] [address] Care Team Providers Care Milanese Knitting Machine Operator Name Role Phone Dayanara Plaza MD Primary Care Provider [phone] Encounter Details Date Type Department Care Team (Latest Contact Info) Description 08/30/2023 1:31 PM CDT - 08/30/2023 5:09 PM CDT Hospital Encounter [facility] Diagnostic Imaging [address] [place] [address] [place] [address] [place] [address] Discharge Disposition: Home or Self Care (Routine [...] Master's degree (e.g., MA, MS, Howard, MEd, DRAFTER TOPOGRAPHICAL, KEKE) 12/21/2018 Comments No Sex and Gender [...] mouth 2 (two) times daily. 11/24/2021 4 [place]-3 Fatty Acids (FISH OIL) 1200 MG Cap Take 1 capsule by mouth daily. 4 polyethylene glycol packet Take 240 mLs (1 packet total) by mouth daily as needed. 4 documented as of this encounter Plan of Treatment Upcoming Encounters Date Type Department Care Team (Late st Contact Info) Description 11/14/2024 8:00 AM ACCOUNTANT CERTIFIED PUBLIC Office Visit [facility] Mult[facility]ty Care - [facility] 3 [facility], [address] [place] [phone] Montserrat Oliver NP 3 [facility] [address] [place] [address] 12/06/2024 9:30 AM ACCOUNTANT CERTIFIED PUBLIC Appointment [facility] Open MRI [address] [place] [address] [place] [address] [facility]. [address] [place] [phone] 03/02/2025 3:20 PM CDT Office Visit [facility] Family & Internal Medicine - [address] [phone] [place] [address] [facility] [address] [place] [address] documented as of this encounter Procedures Procedure Name Priority Date/Time Associated Diagnosis Comments XR ABD KUB Routine 08/30/2023 1:41 PM CDT Flank pain documented in this encounter Results [...] By: Ez Hoffman MD, 08/30/2023 4:36 PM us Prakash Staples PA GENERAL IMAGING Final Result documented in this encounter Visit Diagnoses Diagnosis Flank pain Abdominal pain, unspecified site documented in this encounter Additional Health Concerns Assessment Noted Time PHQ-9 Depression Total Score: 2 05/27/20 22 11:36 AM CDT documented as of this encounter Care Teams Milanese Knitting Machine Operator Relationship Specialty Start [place] [address] [facility]. [address] [place] [address] PCP - General FAMILY PRACTICE 03/01/23 documented as of this encounter
--- OUTSIDE RECORDS SUMMARY | 2024-11-13 17:11 | XMS_ITS | Encounter Summary ---
Author Organization [facility] Address [address] [place] [address]. [place] [address] [place] [address] Care Team Providers Care Laster Hand Name Role Phone Dayanara Plaza MD Primary Care Provider [phone] Reason for Visit * Reason Onset Date Comments Other 03/05/2023 Encounter Details Date Type Department Care Team (Late st Contact Info) Description 03/05/[address] [address] [place] [address] [facility]. [address] [place] [address] Other Social History Tobacco Use [...] Master's degree (e.g., MA, MS, Howard, MEd, RV SERVICER, KEKE) 12/21/2018 Comments No Sex and Gender [...] of this encounter Progress Notes * Annalee Altamirano - 03/05/2023 2:13 PM CDT Lm for patient to call the office regarding sched her Stress test per Allyson Arzola APRN. documented in this encounter Plan of Treatment Upcoming Encounters Date Type Department Care Team (Late st Contact Info) Description 11/14/2024 8:00 AM TOOLROOM CHECKER Office Visit [facility] Multispecialty Care - [address], [address] [place] [phone] Montserrat Oliver NP 3 [facility] [address] [place] [address] 12/06/2024 9:30 AM TOOLROOM CHECKER [facility]ointment [facility] [address] [place] [address] [place] [address] [facility] [address] [place] [phone] 03/02/2025 3:20 PM CDT Office Visit [facility] Family & Internal Medicine - [address] [phone] [place] [address] [facility] [address]. [address] [place] [address] documented as of this encounter Visit Diagnoses Not on filedocumented in this encounter Additional Health Concerns Assessment Noted Time PHQ-9 Depression Total Score: 2 05/27/20 22 11:36 AM CDT documented as of this encounter Care Teams Laster Hand Relationship Specialty [place] [address] [address] [place] [address] PCP - General FAMILY PRACTICE 03/01/23 documented as of this encounter
--- OUTSIDE RECORDS SUMMARY | 2024-11-13 17:11 | XMS_ITS | Encounter Summary ---
Author Organization [facility] Address [address] [place] [address]. [place], [place] [address] [place] [address] Care Team Providers Care Concessions Manager Name Role Phone Dayanara Plaza MD Primary Care Provider [phone] Encounter Details Date Type Department Care Team (Latest Contact Info) Description 08/30/2023 Travel Social History Tobacco Use Types Packs/Day [...] Master's degree (e.g., MA, MS, Howard, MEd, FLIGHT DIRECTOR, KEKE) 12/21/2018 Comments No Sex and [...] Department Care Team (Late Contact Info) Description 11/14/2024 8:00 AM ACCOUNTANT ASSISTANT Office Visit [facility] Multispecialty Care - [facility] 3 [facility], [address] [place] [address] Montserrat Oliver, DOREEN 3 [facility] [address] [place] [address] 12/06/2024 9:30 AM ACCOUNTANT ASSISTANT Appointment [facility] Open MRI [address] [address] [place] [address] [address] [place] [address] 03/02/2025 3:20 PM CDT Office Visit [facility] Family & Internal Medicine - [address] [phone] [place] [address] [place] [address] documented as of this encounter Visit Diagnoses Not on filedocumented in this encounter Additional Health Concerns Assessment Noted Time PHQ-9 Depression Total Score: 2 05/27/20 22 11:36 AM CDT documented as of this encounter Care Teams Concessions Manager Relationship Specialty [place] [address] [address] [place] [address] PCP - General FAMILY PRACTICE 03/01/23 documented as of this encounter
--- OUTSIDE RECORDS SUMMARY | 2024-11-13 17:11 | XMS_ITS | Encounter Summary ---
Author Organization [facility] Address [address] [place] [address]. [place] [address] [place] [address] Care Team Providers Care Director Of Health Care Marketing Name Role Phone Dayanara Plaza MD Primary Care Provider [phone] Perez Cervantes MD Unavailable Adriana Ma MD Unavailable [phone] Encounter Details Date Type Department Care Team (Latest Contact Info) Description 09/10/2023 Travel Social History Tobacco Use Types Packs/Day [...] Master's degree (e.g., MA, MS, Howard, MEd, HEEL SEAT SANDER, KEKE) 12/21/2018 Comments No Sex and Gender [...] st Contact Info) Description 11/14/2024 8:00 AM INVESTMENT ANALYST Office Visit [facility] Multispecialty Care - [facility] 3 [facility], [address] [place] [address] Montserrat Oliver NP 3 [facility] [address] [place] [address] 12/06/2024 9:30 AM INVESTMENT ANALYST Appointment [facility] Open MRI [address] [place] [address] [place] [address] [address] [place] [address] 03/02/2025 3:20 PM CDT Office Visit [facility] Family & Internal Medicine - [place] [id number] [place] [phone] [place] [address] [facility] [address] [place] [address] documented as of this encounter Visit Diagnoses Not on filedocumented in this encounter Additional Health Concerns Assessment Noted Time PHQ-9 Depression Total Score: 2 05/27/20 22 11:36 AM CDT documented as of this encounter Care Teams Director Of Health Care Marketing Relationship Specialty Start Date End Date Dayanara Plaza MD [address] [place] [address] [address] [place] [address] PCP - General FAMILY PRACTICE 03/01/23 Perez Cervantes MD [address] [place] [phone] RHEUMATOLOGY 09/02/23 Adriana aM MD [address] [place] [address] Referring Physician ALLERGY 09/02/23 documented as of this encounter
--- OUTSIDE RECORDS SUMMARY | 2024-11-13 17:11 | XMS_ITS | Encounter Summary ---
Author Organization [facility] Address [address] [place] [address]. [place], [place] [address] [place] [address] Care Team Providers Care Supervisor Telephone Clerks Name Role Phone Izzy Plaza MD Primary Care Provider [phone] Perez Cervantes MD Unavailable Adriana Ma MD Unavailable [phone] Reason for Referral * Imaging (Routine) - Pending Review Specialty Diagnoses / Procedures Referred By Contac t Referred To Contact RADIOLOGY Diagnoses Encounter for osteoporosis screening in asymptomatic postmenopausal patient Procedures BONE DENSITY[place] [address] [address] [place] [address] Phone: tel: fax: Referral ID Status Reason Start Date Expiration Date V isits Requested Visits Authorized [id number] Pending Review 01/17/2024 02/15/2025 1 1 Reason for Visit * Imaging (Routine) - Pending Review Specialty Diagnoses / Procedures Referred By Contkayden t Referred To Contact RADIOLOGY Diagnoses Encounter for osteoporosis screening in asymptomatic postmenopausal patient Procedures BONE DENSITY[place] [address] [address] [place] [address] Phone: tel: fax: Referral ID Status Reason Start Date Expiration Date V isits Requested Visits Authorized [id number] Pending Review 01/17/2024 02/15/2025 1 1 Encounter Details Date Type Department Care Team (Latest Contact Info) Description 01/27/2024 2:45 PM CDT - 01/27/2024 11:59 PM CDT Hospital Encounter [facility] [address] [address] [place] [phone] [place] [address] 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 10/26/2023 etanercept 50 MG/ML injection Inject 1 mL (50 mg total) into the skin weekly. 05/30/2014 fexofenadine (PIYUSH) 180 MG tablet Take 1 tablet (180 mg total) by mouth daily. methotrexate 2.5 MG tablet Take by mouth once a week. Take 6 tablets every 7 days. 06/06/2018 montelukast (SINGULAIR) 10 MG tabletIndications :Seasonal allergies TAKE 1 TABLET (10 MG TOTAL) BY MOUTH DAILY. 90 tablet 3 11/29/2023 valACYclovir 1 g tablet as needed. 10/10/2019 ALPRAZolam (XANAX) 0.25 MG tabletIndications :Anxiety Take 1 tablet (0.25 mg total) by mouth nightly as needed for Anxiety. 30 tablet 03/03/2023 4 Ascorbic Acid (VITAMIN C) 100 MG tablet Take 1 tablet (100 mg total) by mouth daily. 4 azelastine (ASTELIN) 0.1 % nasal spray 2 spray(s) intranasally 2 times a day, PRN for 30 days 4 busPIRone (BUSPAR) 15 MG tabletIndications :DURAN (generalized anxiety disorder) Take 1 tablet (15 mg total) by mouth 2 (two) times daily. 180 tablet 1 11/10/2023 4 clobetasol (TEMOVATE) 0.05 % ointment 10/26/2023 4 dicyclomine (BENTYL) 20 MG tabletIndications :Irritable bowel syndrome with both constipation and diarrhea Take 1 tablet (20 mg total) by mouth every 6 (six) hours as needed. 120 tablet 1 11/10/2023 4 folic acid (FOLVITE) 1 MG tablet Take 1 tablet (1 mg total) by mouth daily. 4 gabapentin (NEURONTIN) 100 MG capsule 11/30/2023 4 hydrocortisone (ANUSOL-HC) 2.5 % rectal cream 11/30/2023 4 multivitamin tablet Take 2 tablets by mouth daily. 4 nabumetone 500 MG tablet Take 2 tablets (1,000 mg total) by mouth 2 (two) times daily. 11/24/2021 4 [place]-3 Fatty Acids (FISH OIL) 1200 MG Cap Take 1 capsule by mouth daily. 4 polyethylene glycol packet Take 240 mLs (1 packet total) by mouth daily as needed. 4 traZODone (DESYREL) 100 MG tabletIndications :Insomnia due to other mental disorder Take 1 tablet (100 mg total) by mouth nightly at bedtime. 30 tablet 1 12/23/2023 documented as of this encounter Plan of Treatment Upcoming Encounters Date Type Department Care Team (Late st Contact Info) Description 11/14/2024 8:00 AM SITE SUPERINTENDENT Office Visit [facility] Multispecialty Care - [facility] 3 [facility], [address] [place] [phone] Montserrat Oliver NP 3 [facility] [address] [place] [address] 12/06/2024 9:30 AM SITE SUPERINTENDENT Appointment [facility] MRI [address] [place] [address] [place] [address] [facility] [address] [place] [address] 03/02/2025 3:20 PM CDT Office Visit [facility] Family & Internal Medicine - [address] [phone] [place] [address] [facility] [address] [place] [address] documented as of this encounter Procedures Procedure Name Priority Date/Time Associated Diagnosis Comments BONE DENSITY/DEXA Routine 01/27/2024 3:0 3 PM CDT Encounter for osteoporosis screening in asymptomatic postmenopausal patient documented in this encounter Results * BONE DENSITY/DEXA (01/27/2024 [...] -1.0 ? Total Right femur: ?BMD Patient (GM/SQCM): 0.812 ? T-Score (Standard deviations from young [...] bone mineral density test. [facility] is allowed once every 2 [...] as of this encounter Care Teams Supervisor Telephone Clerks Relationship Specialty [place] [address] [facility] [address] [place] [address] PCP - General FAMILY PRACTICE 03/01/23 Perez Cervantes MD [address] [place] [address] RHEUMATOLOGY 09/02/23 Adriana Ma MD [address] [place] [address] Referring Physician ALLERGY 09/02/23 documented as of this encounter
--- OUTSIDE RECORDS SUMMARY | 2024-11-13 17:11 | XMS_ITS | Encounter Summary ---
Author Organization [facility] Address [address] [place] [address]. [place] [address] [place] [address] Care Team Providers Care Dental Surgeon Name Role Phone Dayanara Plaza MD Primary Care Provider [phone] Perez Cervantes MD Unavailable Adriana Ma MD Unavailable [phone] Reason for Visit * Auth/Cert Specialty Diagnoses / Procedures Referred By Chalino t Referred To Contact Diagnoses SBO Procedures GENERAL Sydni Sarkar, DO [address] [place] [address] Phone: tel: fax: Referral ID Status Reason Start Date Expiration Date Visits Re quested Visits Authorized [id number] 1 1 Encounter Details Date Type Department Care Team (Late st Contact Info) Description 05/23/2024 2:35 PM CDT - 05/23/2024 5:10 PM CDT Surgery [facility] OR [facility] [address] [place] [address] Lian Sauer MD [facility] [address] [address] LAPAROTOMY EXPLORATORY, LYSIS OF ADHESIONS Surgery Details Date/Time Status Location OR Service Patient Class Case Cl ass Case Type Trauma Case? 05/23/2024 2:35 PM Posted SIA OR OR 7 General Inpatient C- Urgent: Needs to occur within 8 hours No Panel 1 Procedure LRB Anes Op Region Wound Class Comments LAPAROTOMY EXPLORATORY, LYSI S OF ADHESIONS N/A General Abdomen Clean Contaminated Surgeon Surgeon Role Service Panel Lian Sauer MD Primary General 1 documented in this encounter Social History Tobacco [...] from your doctor or pharmacy? Never 05/23/2024 [facility] Utilities Answer Date Recorded In the [...] Patient Health Questionnaire-2 Score 0 04/03/2024 [facility] [place] of Occupat ional Health - Occupational Stress [...] any time in the past 12 m [facility], were you homeless or living in a fpc (including now)? No 05/23/2024 Education Answer Date Recorded What is the highest level of school you have completed or the highest degree you have received? Master's degree (e.g., MA, MS, Howard, MEd, TOBACCO DRYING MACHINE OPERATOR, KEKE) 12/21/2018 Comments No Sex [...] Sign Reading Time Taken Comments Blood Pressure 135/74 05/23/2024 4:45 PM CDT Pulse 80 05/23/2024 4:45 PM CDT Temperature 37.2 ??C (99 ??F) 05/23/2024 4:15 PM CDT Respiratory Rate 10 05/23/2024 4:45 PM CDT Oxygen Saturation 91% 05/23/2024 4:45 PM CDT Inhaled Oxygen Concentration - - Weight 82.6 kg (182 lb 1.6 oz) 05/23/2024 7:39 A M CDT Height - - Body Mass Index 27.69 05/24/2024 3:17 PM [...] Status No 05/23/2024 5:13 PM CDT Angélica oJhnson RN Active * Do you have difficulty [...] Johnson RN Active documented in this encounter Discharge [...] rheumatoid arthritis, and depression/anxiety who presented to [facility] in [place] emergency room with ongoing abdominal pain, nausea, [...] Patient had an NG tube placed at [facility] ER and patient states she is feeling [...] Hospital Course: SBO Ms. Pascual transferred from [facility] after 3 consecutive ER visits for worsening abd pain. CT A/P (05/23): mid to distal small bowel obstruction NG placed in ER at [facility] NPO/IVF Pain Control - monitor for toxicity [...] 109/70 Pulse: 76 74 74 72 Resp: 16 Temp: 98.2 ??F (36.8 ??C) 98.1 [...] input(s): PH , PCO2 , PO2 , [id number] , BICARBWB , BASEDEFICIT , BASEEXCESS in [...] obstruction COMPARISON: CT 05/23/2024 2:40 AM TECHNIQUE: [employer] image of the abdomen was obtained, oral contrast was administered by NG tube. Images of the abdomen were obtained 20, 4 0, 60, 90, 120, 180 minutes after administration. FINDINGS: [employer]. Revenue Officer image demonstrates moderate smallbowel dilatation. NG tube [...] distal fundus or proximal body of stomach. quality assurance monitor leads overlie the chest and abdomen. 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 * Lysis of Adhesions Discharge Instructions ([place] Island[place]) documented in this encounter Medications at Time [...] of this encounter Progress Notes * Nessa Pan MEDICAL RECORDS ASSISTANT - 05/30/2024 10:22 AM CDT Patient discharged [...] Discharge Planning Goal: Knowledge of discharge instructions 05/30/2024 0957 by Hilaria Chapa RN Outcome: Progressing 05/30/2024956 [...] Progressing Goal: Evidence of pressure injury/ulcer healing 05/30/2024956 by Hilaria Chapa RN Outcome: Progressing 05/30/2024956 by Hilaria Chapa RN Outcome: Not Progressing * Samson Barr MD - 05/30/2024 7:38 AM CDT Images from the original note were not included. General Surgery Progress Note-[facility] Hans Pascual is an 59-year-old [...] note were not included. General Surgery Progress Note-[facility] Hans Pascual is an 59-year-old female. 6 Days Post-Op [...] at 05/28/242028 acetaminophen, albuterol sulfate HFA, HYDROcodone-acetaminophen, xselnabvx-lxseekmc-qmasbejbtou, morphine, morphine, ondansetron, ondansetron, phenol Labs, Imaging, [...] input(s): PH , PCO2 , PO2 , [id number] , BICARBWB , BASEDEFICIT , BASEEXCESS in [...] obstruction COMPARISON: CT 05/23/2024 2:40 AM TECHNIQUE: [employer]. Revenue Officer image of the abdomen was obtained, oral contrast was administered by NG tube. Images of the abdomen were obtained 20, 4 0, 60, 90, 120, 180 minutes after administration. FINDINGS: U.S. Revenue Officer image demonstrates moderate smallbowel dilatation. NG tube [...] distal fundus or proximal body of stomach. quality assurance monitor leads overlie the chest and abdomen. 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 Pascual transferred from [facility] after 3 consecutive ER visits for worsening abd pain. CT A/P (05/23): mid to distal small bowel obstruction NG placed in ER at [facility] NPO/IVF Pain Control - monitor for toxicity [...] Risk of Polypharmacy Outcome: Progressing * Sonya Cantrell, - 05/28/2024 11:47 AM CDT Hospitalist Daily [...] 05/28/24 1035 acetaminophen, albuterol sulfate HFA, HYDROcodone-acetaminophen, pygryxnac-ohkxsstj-aqlofuhbxju, morphine, morphine, ondansetron, ondansetron, phenol Labs, Imaging, [...] input(s): PH , PCO2 , PO2 , [id number] , BICARBWB , BASEDEFICIT , BASEEXCESS in [...] obstruction COMPARISON: CT 05/23/2024 2:40 AM TECHNIQUE: [employer]. Revenue Officer image of the abdomen was obtained, oral contrast was administered by NG tube. Images of the abdomen were obtained 20, 4 0, 60, 90, 120, 180 minutes after administration. FINDINGS: [employer].S. Revenue Officer image demonstrates moderate smallbowel dilatation. NG tube [...] distal fundus or proximal body of stomach. quality assurance monitor leads overlie the chest and abdomen. 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 Pascual transferred from [facility] after 3 consecutive ER visits for worsening abd pain. CT A/P (05/23): mid to distal small bowel obstruction NG placed in ER at [facility] NPO/IVF Pain Control - monitor for toxicity [...] Sauer M.D. General Surgery 05/27/2024 * Sonya Cantrell, DO - 05/27/2024 7:26 AM CDT [...] input(s): PH , PCO2 , PO2 , [id number] , BICARBWB , BASEDEFICIT , BASEEXCESS in [...] obstruction COMPARISON: CT 05/23/2024 2:40 AM TECHNIQUE: [employer]. Revenue Officer image of the abdomen was obtained, oral contrast was administered by NG tube. Images of the abdomen were obtained 20, 4 0, 60, 90, 120, 180 minutes after administration. FINDINGS: [employer].S. Revenue Officer image demonstrates moderate smallbowel dilatation. NG tube [...] distal fundus or proximal body of stomach. quality assurance monitor leads overlie the chest and abdomen. Mild [...] liver, spleen, pancreas, adrenals and kidneys appear normal.There is a very small amount of ascites. [...] 12 lead Result Date: 05/22/2024 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 Pascual transferred from [facility] after 3 consecutive ER visits for worsening abd pain. CT A/P (05/23): mid to distal small bowel obstruction NG placed in ER at [facility] NPO/IVF Pain Control - monitor for toxicity [...] CANTRELL DO 05/27/2024 7:26 AM * Nessa Pan, MEDICAL RECORDS ASSISTANT - 05/26/2024 2:20 PM CDT 05/26 Patient with positive flatus, no BM yet, diet to full liquids. Patient has been ambulating in halls without difficulty, plans to return home with spouse at discharge, currently declining home health cw * Nessa Pan MEDICAL RECORDS ASSISTANT - 05/26/2024 2:20 PM CDT Positive flatus, [...] Sauer M.D. General Surgery 05/26/2024 * Sonya Cantrell DO - 05/26/2024 7:15 AM CDT Hospitalist [...] input(s): PH , PCO2 , PO2 , [id number] , BICARBWB , BASEDEFICIT , BASEEXCESS in [...] obstruction COMPARISON: CT 05/23/2024 2:40 AM TECHNIQUE: [employer]. Revenue Officer image of the abdomen was obtained, oral contrast was administered by NG tube. Images of the abdomen were obtained 20, 4 0, 60, 90, 120, 180 minutes after administration. FINDINGS: U.S. Revenue Officer image demonstrates moderate smallbowel dilatation. NG tube [...] distal fundus or proximal body of stomach. quality assurance monitor leads overlie the chest and abdomen. 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 Pascual transferred from [facility] after 3 consecutive ER visits for worsening abd pain. CT A/P (05/23): mid to distal small bowel obstruction NG placed in ER at [facility] NPO/IVF Pain Control - monitor for toxicity [...] Code status: Full Code SONYA CANTRELL DO 05/26/2024 7:15 AM * Dunia Souza [...] moisture exposure Outcome: Progressing * Nessa Pan MEDICAL RECORDS ASSISTANT - 05/25/2024 2:50 PM CDT 05/25 NG d/c'd today, patient on clear liquid diet, awaiting return of bowel function. Patient ambulating in halls cw * Nessa Pan MEDICAL RECORDS ASSISTANT - 05/25/2024 2:50 PM CDT NG d/c'd , clear liquid diet, awaiting return of bowel function 05/25/24 1446 Interdisciplinary Group Conference Team Members Present Physician;Case/Care [...] Vitals: 05/24/24 2041 05/24/24 2323 05/25/24 0420 05/25/24 0724 BP: 123/68 124/67 119/72 125/69 Pulse: 78 [...] at 05/24/24 0800 lactated ringers Stopped (05/23/24 194) acetaminophen, albuterol sulfate HFA, HYDROcodone-acetaminophen, morphine, morphine, ondansetron, phenol Labs, Imaging, Other Studies Recent Labs Lab 05/21/24 1529 05/22/24 0855 05/23/24 0110 05/24/24 0605/25/24 0610 WBC 7.53 10.00 8.97 10.43 8.51 [...] Labs Lab 05/21/24 1529 05/22/24 0855 05/23/24 01105/24/24 0605/25/24 0610 NA 141 139 140 143 140 [...] input(s): PH , PCO2 , PO2 , [id number] , BICARBWB , BASEDEFICIT , BASEEXCESS in [...] obstruction COMPARISON: CT 05/23/2024 2:40 AM TECHNIQUE: U.[employer]. Revenue Officer image of the abdomen was obtained, oral contrast was administered by NG tube. Images of the abdomen were obtained 20, 4 0, 60, 90, 120, 180 minutes after administration. FINDINGS: U.S. Revenue Officer image demonstrates moderate smallbowel dilatation. NG tube [...] distal fundus or proximal body of stomach. quality assurance monitor leads overlie the chest and abdomen. 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 Pascual transferred from [facility] after 3 consecutive ER visits for worsening abd pain. CT A/P (05/23): mid to distal small bowel obstruction NG placed in ER at [facility] NPO/IVF Pain Control - monitor for toxicity [...] for Falls/Injury Outcome: Progressing * Nessa Pan, MEDICAL RECORDS ASSISTANT - 05/24/2024 2:03 PM CDT Patient lives [...] of major lifestyle changes, including change in [facility] living environment No Complex Family concerns No [...] Available Adequate Resources Yes * Nessa Pan MEDICAL RECORDS ASSISTANT - 05/24/2024 1:55 PM CDT Awaiting bowel function return, GEORGE VEGA 05/24/24 1425 Interdisciplinary Group Conference Team Members Present Physician;Case/Care management;Nursing;PT/OT;Pharmacy Physician present for group conference Sonya Cantrell Barriers to Discharge Barriers Other (Comment) Other follow up (Comment) DOREENOGEORGE, awaiting bowel function Patient expects to be discharged to: Home or Self care no new needs * Lian Sauer MD - 05/24/2024 12:03 PM CDT Hasn Pascual is an 59-year-old female. Date of [...] anticipated postoperative ileus Encourage increased ambulation Ellis Camacho M.D. General Surgery 05/24/2024 * Iris Ellsworth [...] or lesions Medications ceFAZolin 2 g Intravenous Solution Professional to OR heparin (porcine) 5,000 Units Subcutaneous 2 times per day pantoprazole 40 mg Intravenous Daily lactated ringers Stopped (05/23/24 1947) sodium chloride 125 mL/hr at 05/24/24 0202 [...] input(s): PH , PCO2 , PO2 , [id number] , BICARBWB , BASEDEFICIT , BASEEXCESS in [...] obstruction COMPARISON: CT 05/23/2024 2:40 AM TECHNIQUE: U.[employer]. Revenue Officer image of the abdomen was obtained, oral contrast was administered by NG tube. Images of the abdomen were obtained 20, 4 0, 60, 90, 120, 180 minutes after administration. FINDINGS: U.S. Revenue Officer image demonstrates moderate smallbowel dilatation. NG tube [...] distal fundus or proximal body of stomach. quality assurance monitor leads overlie the chest and abdomen. 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 Pascual transferred from [facility] after 3 consecutive ER visits for worsening abd pain. CT A/P (05/23): mid to distal small bowel obstruction NG placed in ER at [facility] NPO/IVF Pain Control - monitor for toxicity [...] of wound healing Outcome: Progressing * Lian Sauer MD - 05/23/2024 1:49 PM CDT Patient [...] rheumatoid arthritis, and depression/anxiety who presented to [facility] in [place] emergency room with ongoing abdominal pain, nausea, [...] Patient had an NG tube placed at [facility] ER and patient states she is feeling [...] Inflammatory arthritis Plantar fasciitis RA (rheumatoid arthritis) ([facility]) Past Surgical History: Procedure Laterality Date CHOLECYSTECTOMY COLONOSCOPY N/A 03/17/2021 COLONOSCOPY-NORMAL performed by Niall Matute MD at [facility] GI COLONOSCOPY STOMA DX INCLUDING COLLJ SPEC SPX AH 9 yrs. 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 quality assurance monitor leads overlie the chest and abdomen. Mild [...] & PLAN SBO Ms. Pascual transferred from [facility] after 3 consecutive ER visits for worsening abd pain. CT A/P (05/23): mid to distal small bowel obstruction NG placed in ER at [facility] NPO/IVF Pain Control - monitor for toxicity [...] for this patient. Patient seen and examined. CAPITAL CAMPAIGN FUNDRAISER/PA note reviewed. General: . Awake, alert, No acute distress CV: RRR, no murmur noted Pulmonary: Clear to auscultation. Nonlabored. No wheezing/rhonchi/crackles Abdomen: + mildly distended, diffusely tender to palpation Extremities: No significant edema Neuro: alert and oriented; Moves all extremities. No focal neurological deficits Agree with plan as outlined above. Transferred to [facility] for SBO. Surgery consulted, appreciate rec's.Continue NG tube to LIS. Small bowel follow through pending. Pain control, monitor for toxicity. SONYA CANTRELL DO documented in this encounter Consult Notes * Lian Sauer MD - 05/23/2024 10:41 AM CDTAssociated Order(s): IP CONSULT TO GENERAL SURGERY Date of Service: 05/23/2024 CHIEF COMPLAINT: sbo HPI: Audrey Pascual is a 59-year-old female who presents to the hospital as transfer from [facility] in [place] for evaluation of small bowel obstruction as [...] Inflammatory arthritis Plantar fasciitis RA (rheumatoid arthritis) ([facility]) PSH: Past Surgical History: Procedure Laterality Date CHOLECYSTECTOMY COLONOSCOPY N/A 03/17/2021 COLONOSCOPY-NORMAL performed by Niall Matute MD at [facility] GI COLONOSCOPY STOMA DX INCLUDING COLLJ SPEC [...] Master's degree (e.g., MA, MS, Howard, MEd, TOBACCO DRYING MACHINE OPERATOR, KEKE) 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 quality assurance monitor leads overlie the chest and abdomen. Mild [...] nursing Patient ambulating the halls 3x since 1900 * Iris Ellsworth RN - 05/25/2024 6:04 [...] Dunia Souza RN - 05/25/2024 12:20 AM CDTSummary: nursing Assisted patient to bathroom and back [...] Dunia Souza RN - 05/24/2024 6:38 AM CDTSumadriana: nursing Patient ambulating in hallway and tolerated well. Patient ambulated back to the chair. * Dunia Souza RN - 05/24/2024 5:53 AM CDTSumadriana: nursing Patient ambulating to bathroom with staff. Tolerated well * Dunia Souza RN - 05/23/2024 10:11 PM CDTSumadriana: nursing Patient requesting to go back to bed at this time. Assisted patient back to bed. Call light within reach. * Dunia Souza RN - 05/23/2024 9:45 PM CDTSummary: nursing Assisted patient to bathroom. Urinated without difficulty. Assisted patient to chair. Call light within reach. * Cristina Hunt RN - 05/23/2024 3:20 PM CDT Updates to mike Smallwood: 15:20- Procedure start 15:45- Procedure closing documented [...] st Contact Info) Description 11/14/2024 8:00 AM ACTIVITIES OFFICER Office Visit [facility] - [facility] [address] [facility], [address] [place] [phone] Montserrat Oliver NP [address] [facility] [address] [place] [phone] 12/06/2024 9:30 AM ACTIVITIES OFFICER Appointment [facility] Open MRI [address] [place] [address] [place] [address] [facility]. [address] [place] [address] [phone] 03/02/2025 3:20 PM CDT Office Visit [facility] Family & Internal Medicine - [address] [phone] [place] [address] [facility] [place] [id number] documented as of this encounter Procedures Procedure [...] CBC W/DIFF AUTOMATED (05/30/2024 6:46 AM CDT) Pathologist [facility] WBC 4.04(L) 4.5 - 11.0 x10'3/uL 05/30/2024 7:21 AM CDT [facility] RBC 3.50(L) 4.20 - 5.40 x10'6/uL 05/30/2024 7:21 AM CDT [facility] HGB 11.2(L) 12.0 - 16.0 G/DL 05/30/2024 7:21 AM CDT [facility] HCT 34.7(L) 38.0 - 48.0 % 05/30/2024 7:21 AM CDT [facility] MCV 99.1(H) 81.0 - 99.0 FL 05/30/2024 7:21 AM CDT [facility] MCH 32.0(H) 27.0 - 31.0 PG 05/30/2024 7:21 AM CDT [facility] MCHC 32.3 32.0 - 36.0 G/DL 05/30/2024 7:21 AM CDT [facility] RDW 14.6(H) 11.5 - 14.5 % 05/30/2024 7:21 AM CDT [facility] PLT 255 130 - 400 x10'3/uL 05/30/2024 7:21 AM CDT [facility] MPV 10.7 9.3 - 12.2 FL 05/30/2024 7:21 AM CDT [facility] DIFFERENTIAL TYPE MANUAL DIFFERENTIAL 05/30/2024 7:30 AM CDT [facility] SEG NEUTROPHILS 65 % 7:30 AM CDT [facility] LYMPHOCYTES 23 % 05/30/2024 7:30 AM CDT [facility] MONOCYTES 9 % 05/30/2024 7:30 AM CDT [facility] EOSINOPHILS 3 % 05/30/2024 7:30 AM CDT [facility] ABS. NEUTROPHILS 2.63 1.80 - 7.70 x10'3/uL 05/30/2024 7:30 AM CDT [facility] ABS. LYMPHOCYTES 0.93(L) 1.00 - 4.80 x10'3/uL 05/30/2024 7:30 AM CDT [facility] ABS. MONOCYTES 0.36 0.24 - 0.86 x10'3/uL 05/30/2024 7:30 AM CDT [facility] ABS. EOSINOPHILS 0.12 0.04 - 0.36 x10'3/uL 05/30/2024 7:30 AM CDT [facility] RBC MORPHOLOGY RBC MORPHOLOGY APPEARS NORMAL. SLIDE REVIEWED. 05/30/2024 7:30 AM CDT [facility] PLT EST. ADEQUATE 05/30/2024 7:30 AM CDT [facility] 05/30/2024 6:46 AM CDT us Sonya Cantrell DO LABORATORY Final Res ult [facility] [address] [place] [address], * (ABNORMAL) BASIC METABOLIC PANEL (05/30/2024 6:46 AM CDT) [facility] GLUCOSE 95 70 - 99 MG/DL 05/30/2024 7:29 AM CDT [facility] BUN 3(L) 7 - 18 MG/DL 05/30/2024 7:29 AM CDT [facility] CREATININE S/P/B 0.57 0.55 - 1.02 MG/DL 05/30/2024 7:29 AM CDT [facility] SODIUM S/P/B 142 136 - 145 MMOL/L 05/30/2024 7:29 AM CDT [facility] POTASSIUM S/P/B 3.5 3.5 - 5.1 MMOL/L 05/30/2024 7:29 AM T [facility] CHLORIDE S/P/B 113(H) 100 - 108 MMOL/L 05/30/2024 7:29 AM CDT [facility] CO2 22.1 21 - 32 MMOL/L 05/30/2024 7:29 AM T [facility] CALCIUM S/P/B 9.2 8.5 - 10.1 MG/DL 05/30/2024 7:29 AM T [facility] ANION GAP 6.9 5 - 15 MMOL/L 05/30/2024 7:29 AM T [facility] BUN CREATININE RATIO 5.3(L) 6 - 26 05/30/2024 7:29 AM T [facility] GFR ESTIMATE >90 >90 ML/MIN/1.7 3 M2 05/30/2024 7:29 AM T [facility] Comment: NOTE: eGFR is not calculated for patients <18 years of age. This is an estimated GFR calculation using the new CKD EPI creatinine equation without race and so does not require a correction factor for race. This estimated GFR should not be used for calculating drug doses. 05/30/2024 6:46 AM CDT Sonya Cantrell DO LABORATORY Final Res ult Performing Organization Address City/[facility]/ZIP Co de Phone Number [facility] [address] [place] [address], [place] [phone] * MAGNESIUM (05/29/2024 5:15 AM CDT) MAGNESIUM 2.0 1.8 - 2.4 MG/DL 05/29/2024 7:55 AM CDT [facility] 05/29/2024 5:15 AM CDT Sonya Cantrell DO LABORATORY Final Res ult Performing Organization Address [facility] de Phone Number [facility] [address] [place] [address], [place] [phone] * (ABNORMAL) CBC W/DIFF AUTOMATED (05/29/2024 5:15 AM CDT) WBC 4.41(L) 4.5 - 11.0 x10'3/uL 05/29/2024 5:42 AM CDT [facility] RBC 3.17(L) 4.20 - 5.40 x10'6/uL 05/29/2024 5:42 AM CDT [facility] HGB 10.3(L) 12.0 - 16.0 G/DL 05/29/2024 5:42 AM CDT [facility] HCT 30.6(L) 38.0 - 48.0 % 05/29/2024 5:42 AM CDT [facility] MCV 96.5 81.0 - 99.0 FL 05/29/2024 5:42 AM CDT [facility] MCH 32.5(H) 27.0 - 31.0 PG 05/29/2024 5:42 AM CDT [facility] MCHC 33.7 32.0 - 36.0 G/DL 05/29/2024 5:42 AM CDT [facility] RDW 14.2 11.5 - 14.5 % 05/29/2024 5:42 AM CDT [facility] PLT 208 130 - 400 x10'3/uL 05/29/2024 5:42 AM CDT [facility] MPV 10.3 9.3 - 12.2 FL 05/29/2024 5:42 AM CDT [facility] DIFFERENTIAL TYPE AUTOMATED DIFFERENTIAL 05/29/2024 5:42 AM CDT [facility] NEUTROPHILS % 59.2 % 05/29/2024 5:42 AM CDT [facility] LYMPHOCYTES % 24.7 % 05/29/2024 5:42 AM CDT [facility] MONOCYTES % 13.4 % 05/29/2024 5:42 AM CDT [facility] EOSINOPHILS 2.3 % 05/29/2024 5:42 AM CDT [facility] BASOPHILS 0.2 % 05/29/2024 5:42 AM CDT [facility] IMMATURE GRANS % 0.2 % 05/29/20 5:42 AM CDT [facility] ABS. NEUTROPHILS 2.61 1.80 - 7.70 x10'3/uL 05/29/2024 5:42 AM CDT [facility] ABS. LYMPHOCYTES 1.09 1.00 - 4.80 x10'3/uL 05/29/2024 5:42 AM CDT [facility] ABS. MONOCYTES 0.59 0.24 - 0.86 x10'3/uL 05/29/2024 5:42 AM CDT [facility] ABS. EOSINOPHILS 0.10 0.04 - 0.36 x10'3/uL 05/29/2024 5:42 AM CDT [facility] ABS. BASOPHILS 0.01 0.01 - 0.08 x10'3/uL 05/29/2024 5:42 AM CDT [facility] ABS. IMMATURE GRANULOCYTES 0.01 0.00 - 0.49 x10'3/uL 05/29/2024 5:42 AM CDT [facility] 05/29/2024 5:15 AM CDT Sonya Cantrell DO LABORATORY Final Res ult [facility] [address] [place] [id number], [place] [phone] * (ABNORMAL) BASIC METABOLIC PANEL (05/29/2024 5:15 AM CDT) GLUCOSE 80 70 - 99 MG/DL 05/29/2024 5:48 AM CDT [facility] BUN 4(L) 7 - 18 MG/DL 05/29/2024 5:48 AM CDT [facility] CREATININE S/P/B 0.49(L) 0.55 - 1.02 MG/DL 05/29/2024 5:48 AM CDT [facility] SODIUM S/P/B 142 136 - 145 MMOL/L 05/29/2024 5:48 AM CDT [facility] POTASSIUM S/P/B 3.2(L) 3.5 - 5.1 MMOL/L 05/29/2024 5:48 AM CDT [facility] CHLORIDE S/P/B 113(H) 100 - 108 MMOL/L 05/29/2024 5:48 AM CDT [facility] CO2 22.1 21 - 32 MMOL/L 05/29/2024 5:48 AM CDT [facility] CALCIUM S/P/B 8.4(L) 8.5 - 10.1 MG/DL 05/29/2024 5:48 AM CDT [facility] ANION GAP 6.9 5 - 15 MMOL/L 05/29/2024 5:48 AM CDT [facility] BUN CREATININE RATIO 8.2 6 - 26 05/29/2024 5:48 AM CDT [facility] GFR ESTIMATE >90 >90 ML/MIN/1.7 3 M2 05/29/2024 5:48 AM CDT [facility] Comment: NOTE: eGFR is not calculated for patients <18 years of age. This is an estimated GFR calculation using the new CKD EPI creatinine equation without race and so does not require a correction factor for race. This estimated GFR should not be used for calculating drug doses. 05/29/2024 5:15 AM CDT Sonya Cantrell DO LABORATORY Final Res ult [facility] [address] [place] [address], [place] [phone] * CT ABD+PEL W CON (05/28/2024 9:24 [...] - 11.0 x10'3/uL 05/28/2024 5:51 AM CDT [facility] RBC 3.50(L) 4.20 - 5.40 x10'6/uL 05/28/2024 5:51 AM CDT [facility] HGB 11.4(L) 12.0 - 16.0 G/DL 05/28/2024 5:51 AM CDT [facility] HCT 34.0(L) 38.0 - 48.0 % 05/28/2024 5:51 AM CDT [facility] MCV 97.1 81.0 - 99.0 FL 05/28/2024 5:51 AM CDT [facility] MCH 32.6(H) 27.0 - 31.0 PG 05/28/2024 5:51 AM CDT [facility] MCHC 33.5 32.0 - 36.0 G/DL 05/28/2024 5:51 AM CDT [facility] RDW 14.3 11.5 - 14.5 % 05/28/2024 5:51 AM CDT [facility] PLT 217 130 - 400 x10'3/uL 05/28/2024 5:51 AM CDT [facility] MPV 10.5 9.3 - 12.2 FL 05/28/2024 5:51 AM CDT [facility] DIFFERENTIAL TYPE AUTOMATED DIFFERENTIAL 05/28/2024 5:51 AM CDT [facility] NEUTROPHILS % 60.6 % 05/28/2024 5:51 AM CDT [facility] LYMPHOCYTES % 26.3 % 05/28/2024 5:51 AM CDT [facility] MONOCYTES % 10.7 % 05/28/2024 5:51 AM CDT [facility] EOSINOPHILS 2.0 % 05/28/2024 5:51 AM CDT [facility] BASOPHILS 0.2 % 05/28/2024 5:51 AM CDT [facility] IMMATURE GRANS % 0.2 % 05/28/20 5:51 AM CDT [facility] ABS. NEUTROPHILS 2.72 1.80 - 7.70 x10'3/uL 05/28/2024 5:51 AM CDT [facility] ABS. LYMPHOCYTES 1.18 1.00 - 4.80 x10'3/uL 05/28/2024 5:51 AM CDT [facility] ABS. MONOCYTES 0.48 0.24 - 0.86 x10'3/uL 05/28/2024 5:51 AM CDT [facility] ABS. EOSINOPHILS 0.09 0.04 - 0.36 x10'3/uL 05/28/2024 5:51 AM CDT [facility] ABS. BASOPHILS 0.01 0.01 - 0.08 x10'3/uL 05/28/2024 5:51 AM CDT [facility] ABS. IMMATURE GRANULOCYTES 0.01 0.00 - 0.49 x10'3/uL 05/28/2024 5:51 AM CDT [facility] 05/28/2024 5:14 AM CDT us Sonya Cantrell DO LABORATORY Final Res ult [facility] [address] [place] [id number], * (ABNORMAL) BASIC METABOLIC PANEL (05/28/2024 5:14 AM CDT) GLUCOSE 85 70 - 99 MG/DL 05/28/2024 6:07 AM CDT [facility] BUN 5(L) 7 - 18 MG/DL 05/28/2024 6:07 AM CDT [facility] CREATININE S/P/B 0.61 0.55 - 1.02 MG/DL 05/28/2024 6:07 AM CDT [facility] SODIUM S/P/B 140 136 - 145 MMOL/L 05/28/2024 6:07 AM CDT [facility] POTASSIUM S/P/B 3.1(L) 3.5 - 5.1 MMOL/L 05/28/2024 6:07 AM CDT [facility] CHLORIDE S/P/B 109(H) 100 - 108 MMOL/L 05/28/2024 6:07 AM CDT [facility] CO2 26.1 21 - 32 MMOL/L 05/28/2024 6:07 AM CDT [facility] CALCIUM S/P/B 9.1 8.5 - 10.1 MG/DL 05/28/2024 6:07 AM CDT [facility] ANION GAP 4.9(L) 5 - 15 MMOL/L 05/28/2024 6:07 AM CDT [facility] BUN CREATININE RATIO 8.2 6 - 26 05/28/2024 6:07 AM CDT [facility] GFR ESTIMATE >90 >90 ML/MIN/1.7 3 M2 05/28/2024 6:07 AM CDT [facility] Comment: NOTE: eGFR is not calculated for patients <18 years of age. This is an estimated GFR calculation using the new CKD EPI creatinine equation without race and so does not require a correction factor for race. This estimated GFR should not be used for calculating drug doses. 05/28/2024 5:14 AM CDT us Sonya Cantrell DO LABORATORY Final Res ult [facility] [address] [place] [address], [place] [phone] * (ABNORMAL) CBC W/DIFF AUTOMATED (05/27/2024 5:25 AM CDT) WBC 4.54 4.5 - 11.0 x10'3/uL 05/27/2024 6:31 AM CDT [facility] RBC 3.32(L) 4.20 - 5.40 x10'6/uL 05/27/2024 6:31 AM CDT [facility] HGB 10.9(L) 12.0 - 16.0 G/DL 05/27/2024 6:31 AM CDT [facility] HCT 35.1(L) 38.0 - 48.0 % 05/27/2024 6:31 AM CDT [facility] MCV 105.7(H) 81.0 - 99.0 FL 05/27/2024 6:31 AM CDT [facility] MCH 32.8(H) 27.0 - 31.0 PG 05/27/2024 6:31 AM CDT [facility] MCHC 31.1(L) 32.0 - 36.0 G/DL 05/27/2024 6:31 AM CDT [facility] RDW 14.3 11.5 - 14.5 % 05/27/2024 6:31 AM CDT [facility] PLT 192 130 - 400 x10'3/uL 05/27/2024 6:31 AM CDT [facility] MPV 10.2 9.3 - 12.2 FL 05/27/2024 6:31 AM CDT [facility] DIFFERENTIAL TYPE AUTOMATED DIFFERENTIAL 05/27/2024 6:31 AM CDT [facility] NEUTROPHILS % 53.1 % 05/27/2024 6:31 AM CDT [facility] LYMPHOCYTES % 32.2 % 05/27/2024 6:31 AM CDT [facility] MONOCYTES % 11.2 % 05/27/2024 6:31 AM CDT [facility] EOSINOPHILS 2.9 % 05/27/2024 6:31 AM CDT [facility] BASOPHILS 0.4 % 05/27/2024 6:31 AM CDT [facility] IMMATURE GRANS % 0.2 % 05/27/20 6:31 AM CDT [facility] ABS. NEUTROPHILS 2.41 1.80 - 7.70 x10'3/uL 05/27/2024 6:31 AM CDT [facility] ABS. LYMPHOCYTES 1.46 1.00 - 4.80 x10'3/uL 05/27/2024 6:31 AM CDT [facility] ABS. MONOCYTES 0.51 0.24 - 0.86 x10'3/uL 05/27/2024 6:31 AM CDT [facility] ABS. EOSINOPHILS 0.13 0.04 - 0.36 x10'3/uL 05/27/2024 6:31 AM CDT [facility] ABS. BASOPHILS 0.02 0.01 - 0.08 x10'3/uL 05/27/2024 6:31 AM CDT [facility] ABS. IMMATURE GRANULOCYTES 0.01 0.00 - 0.49 x10'3/uL 05/27/2024 6:31 AM CDT [facility] RBC MORPHOLOGY SLIDE REVIEWED 2023 6:31 AM CDT [facility] MACRO 1+ 05/27/2024 6:31 AM CDT [facility] PLT EST. ADEQUATE 05/27/2024 6:31 AM CDT [facility] 05/27/2024 5:25 AM CDT Sonya Cantrell DO LABORATORY Final Res ult [facility] [address] [place] [address], * (ABNORMAL) BASIC METABOLIC PANEL (05/27/2024 5:25 AM CDT) [facility] GLUCOSE 86 70 - 99 MG/DL 05/27/2024 6:10 AM CDT [facility] BUN 4(L) 7 - 18 MG/DL 05/27/2024 6:10 AM CDT [facility] CREATININE S/P/B 0.52(L) 0.55 - 1.02 MG/DL 05/27/2024 6:10 AM CDT [facility] SODIUM S/P/B 140 136 - 145 MMOL/L 05/27/2024 6:10 AM CDT [facility] POTASSIUM S/P/B 3.6 3.5 - 5.1 MMOL/L 05/27/2024 6:10 AM CDT [facility] CHLORIDE S/P/B 115(H) 100 - 108 MMOL/L 05/27/2024 6:10 AM CDT [facility] CO2 19.5(L) 21 - 32 MMOL/L 05/27/2024 6:10 AM CDT [facility] CALCIUM S/P/B 8.9 8.5 - 10.1 MG/DL 05/27/2024 6:10 AM CDT [facility] ANION GAP 5.5 5 - 15 MMOL/L 05/27/2024 6:10 AM CDT [facility] BUN CREATININE RATIO 7.6 6 - 26 05/27/2024 6:10 AM CDT [facility] GFR ESTIMATE >90 >90 ML/MIN/1.7 3 M2 05/27/2024 6:10 AM CDT [facility] Comment: NOTE: eGFR is not calculated for patients <18 years of age. This is an estimated GFR calculation using the new CKD EPI creatinine equation without race and so does not require a correction factor for race. This estimated GFR should not be used for calculating drug doses. 05/27/2024 5:25 AM CDT Sonya Cantrell DO LABORATORY Final Res ult [facility] [address] [place] [address], [place] [phone] * MAGNESIUM (05/26/2024 5:54 AM CDT) MAGNESIUM 2.2 1.8 - 2.4 MG/DL 05/26/2024 7:36 AM CDT [facility] 05/26/2024 5:54 AM CDT Sonya Cantrell DO LABORATORY Final Res ult Performing Organization Address City/[facility]/ZIP Co de Phone Number [facility] [address] [place] [address], [place] [phone] * (ABNORMAL) BASIC METABOLIC PANEL (05/26/2024 5:54 AM CDT) GLUCOSE 91 70 - 99 MG/DL 05/26/2024 6:35 AM CDT [facility] BUN 6(L) 7 - 18 MG/DL 05/26/2024 6:35 AM CDT [facility] CREATININE S/P/B 0.62 0.55 - 1.02 MG/DL 05/26/2024 6:35 AM CDT [facility] SODIUM S/P/B 138 136 - 145 MMOL/L 05/26/2024 6:35 AM CDT [facility] POTASSIUM S/P/B 3.3(L) 3.5 - 5.1 MMOL/L 05/26/2024 6:35 AM CDT [facility] CHLORIDE S/P/B 110(H) 100 - 108 MMOL/L 05/26/2024 6:35 AM CDT [facility] CO2 21.2 21 - 32 MMOL/L 05/26/2024 6:35 AM CDT [facility] CALCIUM S/P/B 9.3 8.5 - 10.1 MG/DL 05/26/2024 6:35 AM CDT [facility] ANION GAP 6.8 5 - 15 MMOL/L 05/26/2024 6:35 AM CDT [facility] BUN CREATININE RATIO 9.7 6 - 26 05/26/2024 6:35 AM CDT [facility] GFR ESTIMATE >90 >90 ML/MIN/1.7 3 M2 05/26/2024 6:35 AM CDT [facility] Comment: NOTE: eGFR is not calculated for patients <18 years of age. This is an estimated GFR calculation using the new CKD EPI creatinine equation without race and so does not require a correction factor for race. This estimated GFR should not be used for calculating drug doses. 05/26/2024 5:54 AM CDT Sonya Cantrell DO LABORATORY Final Res ult [facility] [address] [place] [address], * (ABNORMAL) CBC W/DIFF AUTOMATED (05/26/2024 5:54 AM CDT) WBC 6.56 4.5 - 11.0 x10'3/uL 05/26/2024 6:21 AM CDT [facility] RBC 3.45(L) 4.20 - 5.40 x10'6/uL 05/26/2024 6:21 AM CDT [facility] HGB 11.5(L) 12.0 - 16.0 G/DL 05/26/2024 6:21 AM CDT [facility] HCT 34.7(L) 38.0 - 48.0 % 05/26/2024 6:21 AM CDT [facility] MCV 100.6(H) 81.0 - 99.0 FL 05/26/2024 6:21 AM CDT [facility] MCH 33.3(H) 27.0 - 31.0 PG 05/26/2024 6:21 AM CDT [facility] MCHC 33.1 32.0 - 36.0 G/DL 05/26/2024 6:21 AM CDT [facility] RDW 14.3 11.5 - 14.5 % 05/26/2024 6:21 AM CDT [facility] PLT 195 130 - 400 x10'3/uL 05/26/2024 6:21 AM CDT [facility] MPV 10.6 9.3 - 12.2 FL 05/26/2024 6:21 AM CDT [facility] DIFFERENTIAL TYPE AUTOMATED DIFFERENTIAL 05/26/2024 6:21 AM CDT [facility] NEUTROPHILS % 61.4 % 05/26/2024 6:21 AM CDT [facility] LYMPHOCYTES % 25.5 % 05/26/2024 6:21 AM T [facility] MONOCYTES % 9.6 % 05/26/2024 6:21 AM CDT [facility] EOSINOPHILS 2.7 % 05/26/2024 6:21 AM CDT [facility] BASOPHILS 0.6 % 05/26/2024 6:21 AM CDT [facility] IMMATURE GRANS % 0.2 % 05/26/20 6:21 AM CDT [facility] ABS. NEUTROPHILS 4.03 1.80 - 7.70 x10'3/uL 05/26/2024 6:21 AM CDT [facility] ABS. LYMPHOCYTES 1.67 1.00 - 4.80 x10'3/uL 05/26/2024 6:21 AM CDT [facility] ABS. MONOCYTES 0.63 0.24 - 0.86 x10'3/uL 05/26/2024 6:21 AM CDT [facility] ABS. EOSINOPHILS 0.18 0.04 - 0.36 x10'3/uL 05/26/2024 6:21 AM CDT [facility] ABS. BASOPHILS 0.04 0.01 - 0.08 x10'3/uL 05/26/2024 6:21 AM CDT [facility] ABS. IMMATURE GRANULOCYTES 0.01 0.00 - 0.49 x10'3/uL 05/26/2024 6:21 AM CDT [facility] 05/26/2024 5:54 AM CDT us Sonya Cantrell DO LABORATORY Final Res ult [facility] [address] [place] [address], * (ABNORMAL) BASIC METABOLIC PANEL (05/25/2024 6:10 AM CDT) GLUCOSE 128(H) 70 - 99 MG/DL 05/25/2024 6:55 AM CDT [facility] BUN 14 7 - 18 MG/DL 05/25/2024 6:55 AM CDT [facility] CREATININE S/P/B 0.59 0.55 - 1.02 MG/DL 05/25/2024 6:55 AM CDT [facility] SODIUM S/P/B 140 136 - 145 MMOL/L 05/25/2024 6:55 AM T [facility] POTASSIUM S/P/B 3.3(L) 3.5 - 5.1 MMOL/L 05/25/2024 6:55 AM T [facility] CHLORIDE S/P/B 110(H) 100 - 108 MMOL/L 05/25/2024 6:55 AM CDT [facility] CO2 25.5 21 - 32 MMOL/L 05/25/2024 6:55 AM T [facility] CALCIUM S/P/B 8.9 8.5 - 10.1 MG/DL 05/25/2024 6:55 AM T [facility] ANION GAP 4.5(L) 5 - 15 MMOL/L 05/25/2024 6:55 AM T [facility] BUN CREATININE RATIO 23.6 6 - 26 05/25/2024 6:55 AM T [facility] GFR ESTIMATE >90 >90 ML/MIN/1.7 3 M2 05/25/2024 6:55 AM T [facility] Comment: NOTE: eGFR is not calculated for patients <18 years of age. This is an estimated GFR calculation using the new CKD EPI creatinine equation without race and so does not require a correction factor for race. This estimated GFR should not be used for calculating drug doses. 05/25/2024 6:10 AM CDT us Sonya Cantrell DO LABORATORY Final Res ult [facility] [address] [place] [address], [place] [phone] * (ABNORMAL) CBC W/DIFF AUTOMATED (05/25/2024 6:10 AM CDT) [facility] WBC 8.51 4.5 - 11.0 x10'3/uL 05/25/2024 6:37 AM CDT [facility] RBC 3.45(L) 4.20 - 5.40 x10'6/uL 05/25/2024 6:37 AM CDT [facility] HGB 11.5(L) 12.0 - 16.0 G/DL 05/25/2024 6:37 AM CDT [facility] HCT 35.4(L) 38.0 - 48.0 % 05/25/2024 6:37 AM CDT [facility] MCV 102.6(H) 81.0 - 99.0 FL 05/25/2024 6:37 AM CDT [facility] MCH 33.3(H) 27.0 - 31.0 PG 05/25/2024 6:37 AM CDT [facility] MCHC 32.5 32.0 - 36.0 G/DL 05/25/2024 6:37 AM CDT [facility] RDW 15.0(H) 11.5 - 14.5 % 05/25/2024 6:37 AM CDT [facility] PLT 186 130 - 400 x10'3/uL 05/25/2024 6:37 AM CDT [facility] MPV 10.4 9.3 - 12.2 FL 05/25/2024 6:37 AM CDT [facility] DIFFERENTIAL TYPE AUTOMATED DIFFERENTIAL 05/25/2024 6:37 AM CDT [facility] NEUTROPHILS % 69.7 % 05/25/2024 6:37 AM CDT [facility] LYMPHOCYTES % 17.3 % 05/25/2024 6:37 AM CDT [facility] MONOCYTES % 10.9 % 05/25/2024 6:37 AM CDT [facility] EOSINOPHILS 1.5 % 05/25/2024 6:37 AM CDT [facility] BASOPHILS 0.2 % 05/25/2024 6:37 AM CDT [facility] IMMATURE GRANS % 0.4 % 05/25/20 6:37 AM CDT [facility] ABS. NEUTROPHILS 5.93 1.80 - 7.70 x10'3/uL 05/25/2024 6:37 AM CDT [facility] ABS. LYMPHOCYTES 1.47 1.00 - 4.80 x10'3/uL 05/25/2024 6:37 AM CDT [facility] ABS. MONOCYTES 0.93(H) 0.24 - 0.86 x10'3/uL 05/25/2024 6:37 AM CDT [facility] ABS. EOSINOPHILS 0.13 0.04 - 0.36 x10'3/uL 05/25/2024 6:37 AM CDT [facility] ABS. BASOPHILS 0.02 0.01 - 0.08 x10'3/uL 05/25/2024 6:37 AM CDT [facility] ABS. IMMATURE GRANULOCYTES 0.03 0.00 - 0.49 x10'3/uL 05/25/2024 6:37 AM CDT [facility] 05/25/2024 6:10 AM CDT us Sonya Cantrell DO LABORATORY Final Res ult [facility] [address] [place] [address], [place] [phone] * MAGNESIUM (05/24/2024 6:26 AM CDT) MAGNESIUM 2.1 1.8 - 2.4 MG/DL 05/24/2024 7:01 AM CDT [facility] 05/24/2024 6:26 AM CDT Lian Sauer MD LABORATORY Final Resul t [facility] [address] [place] [address], [place] [phone] * (ABNORMAL) BASIC METABOLIC PANEL (05/24/2024 6:26 AM CDT) Pathologist [facility] GLUCOSE 96 70 - 99 MG/DL 05/24/2024 7:01 AM CDT [facility] BUN 26(H) 7 - 18 MG/DL 05/24/2024 7:01 AM CDT [facility] CREATININE S/P/B 0.62 0.55 - 1.02 MG/DL 05/24/2024 7:01 AM CDT [facility] SODIUM S/P/B 143 136 - 145 MMOL/L 05/24/2024 7:01 AM CDT [facility] POTASSIUM S/P/B 3.7 3.5 - 5.1 MMOL/L 05/24/2024 7:01 AM CDT [facility] CHLORIDE S/P/B 114(H) 100 - 108 MMOL/L 05/24/2024 7:01 AM CDT [facility] CO2 20.8(L) 21 - 32 MMOL/L 05/24/2024 7:01 AM CDT [facility] CALCIUM S/P/B 9.0 8.5 - 10.1 MG/DL 05/24/2024 7:01 AM CDT [facility] ANION GAP 8.2 5 - 15 MMOL/L 05/24/2024 7:01 AM CDT [facility] BUN CREATININE RATIO 41.7(H) 6 - 26 05/24/2024 7:01 AM CDT [facility] GFR ESTIMATE >90 >90 ML/MIN/1.7 3 M2 05/24/2024 7:01 AM CDT [facility] Comment: NOTE: eGFR is not calculated for patients <18 years of age. This is an estimated GFR calculation using the new CKD EPI creatinine equation without race and so does not require a correction factor for race. This estimated GFR should not be used for calculating drug doses. 05/24/2024 6:26 AM CDT us Lian Sauer MD LABORATORY Final Resul t [facility] [address] [place] [address], * (ABNORMAL) CBC W/DIFF AUTOMATED (05/24/2024 6:26 AM CDT) WBC 10.43 4.5 - 11.0 x10'3/uL 05/24/2024 6:56 AM CDT [facility] RBC 3.74(L) 4.20 - 5.40 x10'6/uL 05/24/2024 6:56 AM CDT [facility] HGB 12.1 12.0 - 16.0 G/DL 05/24/2024 6:56 AM CDT [facility] HCT 37.5(L) 38.0 - 48.0 % 05/24/2024 6:56 AM CDT [facility] MCV 100.3(H) 81.0 - 99.0 FL 05/24/2024 6:56 AM CDT [facility] MCH 32.4(H) 27.0 - 31.0 PG 05/24/2024 6:56 AM CDT [facility] MCHC 32.3 32.0 - 36.0 G/DL 05/24/2024 6:56 AM CDT [facility] RDW 15.3(H) 11.5 - 14.5 % 05/24/2024 6:56 AM CDT [facility] PLT 217 130 - 400 x10'3/uL 05/24/2024 6:56 AM CDT [facility] MPV 10.4 9.3 - 12.2 FL 05/24/2024 6:56 AM CDT [facility] DIFFERENTIAL TYPE AUTOMATED DIFFERENTIAL 05/24/2024 6:56 AM CDT [facility] NEUTROPHILS % 73.1 % 05/24/2024 6:56 AM CDT [facility] LYMPHOCYTES % 15.7 % 05/24/2024 6:56 AM T [facility] MONOCYTES % 10.5 % 05/24/2024 6:56 AM CDT [facility] EOSINOPHILS 0.0 % 05/24/2024 6:56 AM CDT [facility] BASOPHILS 0.2 % 05/24/2024 6:56 AM CDT [facility] IMMATURE GRANS % 0.5 % 05/24/20 6:56 AM CDT [facility] ABS. NEUTROPHILS 7.62 1.80 - 7.70 x10'3/uL 05/24/2024 6:56 AM CDT [facility] ABS. LYMPHOCYTES 1.64 1.00 - 4.80 x10'3/uL 05/24/2024 6:56 AM CDT [facility] ABS. MONOCYTES 1.10(H) 0.24 - 0.86 x10'3/uL 05/24/2024 6:56 AM CDT [facility] ABS. EOSINOPHILS 0.00(L) 0.04 - 0.36 x10'3/uL 05/24/2024 6:56 AM CDT [facility] ABS. BASOPHILS 0.02 0.01 - 0.08 x10'3/uL 05/24/2024 6:56 AM CDT [facility] ABS. IMMATURE GRANULOCYTES 0.05 0.00 - 0.49 x10'3/uL 05/24/2024 6:56 AM CDT [facility] 05/24/2024 6:26 AM CDT us Lian Sauer MD LABORATORY Final Resul t [facility] [address] [place] [address], * XR SMALL BOWEL (05/23/2024 2:06 PM [...] ?? COMPARISON: CT 05/23/2024 2:40 AM TECHNIQUE: [employer] image of the abdomen was obtained, oral contrast was administered by NG tube. Images of the abdomen were obtained 20, 40, 60, 90, 120, 180 minutes after administration. FINDINGS: [employer] image demonstrates moderate small bowel dilatation. NG [...] obstruction COMPARISON: CT 05/23/2024 2:40 AM TECHNIQUE: [employer] image of the abdomen was obtained, oral contrast wasadministered by NG tube. Images of the abdomen were obtained 20, 40, 60,90, 120, 180 minutes after administration. FINDINGS: [employer] image demonstrates moderate small bowel dilatation. NG [...] t documented in this encounter Visit Diagnoses Not on filedocumented in this encounter Admitting Diagnoses Diagnosis SBO (small bowel obstruction) (CMS/HCC [facility]/HCC) Unspecified intestinal obstruction documented in this encounter [...] Wed05/23/24 at 0757, Until Wed05/30/24 at 1223 heparin (porcine) injection 5,000 Units 5,000 Units, [...] Given 05/26/2024 8:56 PM CDT 1 tablet qyvadaxou-twecmvkc-diavvywqcvv ([employer] [employer]) [id number] mg/30mL suspension 5 mL, Oral, Every 6 hours PRN, Heartburn, Starting on 05/27/24 at 1846, Until Wed05/30/24 at 1223, Shake Well Given 05/27/2024 8:22 PM CDT 5 mLs morphine injection 1 mg 1 mg, Intravenous, [...] at 2249, Until Wed05/30/24 at 1223 pantoprazole EC (PROTONIX) tablet 40 mg 40 [...] Wed05/24/24 at 0932, Until Wed05/30/24 at 1223 documented in this encounter Active and Recently [...] Lakesha Beebe RN)2004 (Given - Provider: Dunia Souza, JOSSUE) 0815 (Not Given - Provider: Hilaria Chapa [...] or crush. 0748 (Given - Provider: Lakesha Beebe RN) valACYclovir (VALTREX) tablet 2,000 mg (COMPLETED) 2,000 mg, Oral, Every 12 hours scheduled (2 times per day), 2 doses, First dose on Wed05/29/24 at 1030, Last dose on Wed05/29/24 at 2100 1026 (Given - Provider: Lakesha Beebe RN)2004 (Given - Provider: Dunia Souza, JOSSUE) Continuous Medication Order 05/28/2024 05/29/2024 05/30/2024 sodium chloride 0.9% infusion (CANCELED) at 100 mL/hr, Intravenous, Continuous, Starting on 05/28/24 at 0915, Until Wed05/29/24 at 1010 1035 (New Bag - Provider: Mary Moreno RN)2027 (Infusion Stop Time - Provider: Edmar Brush RN)2028 (New Bag - Provider: Edmar Brush RN) 0747 (New Bag - Provider: Lakesha Beebe RN)1027 (Infusion Stop Time - Provider: Lakesha Beebe [...] as needed, Contrast, 1 dose, Starting on 05/28/24 at 0924, Until 05/28/24 at 0925 0925 (Given - Provider: Rivera Brown, RTR) blltynylz-ridtedmf-nxvytpvewje ([place] [employer]) 8619-0098-591 mg/30mL suspension 5 mL, Oral, Every 6 [...] 4 hours PRN, Nausea, Vomiting, Starting on 05/27/24 at 2249, Until Wed05/30/24 at 1223 phenol [...] documented as of this encounter Care Teams Dental Surgeon Relationship Specialty [place] [address] [facility] [address] [place] [address] PCP - General FAMILY PRACTICE 03/01/23 Perez Cervantes MD [address] [id number] RHEUMATOLOGY 09/02/23 Adriana Ma MD [address] [place] [id number] Referring Physician ALLERGY 09/02/23 documented as of this encounter
--- OUTSIDE RECORDS SUMMARY | 2024-11-13 17:11 | XMS_ITS | Encounter Summary ---
Author Organization [facility] Address [address] [place] [address]. [place] [address] [place] [address] Care Team Providers Care Undraped Artist Model Name Role Phone Dayanara Plaza MD Primary Care Provider [phone] Perez Cervantes MD Unavailable Adriana Ma MD Unavailable [phone] Reason for Visit * Reason Comments Gi Problem Encounter Details Date Type Department Care Team (Late st Contact Info) Description 05/22/2024 8:38 AM CDT - 05/22/2024 1:41 PM CDT Emergency [facility] Emergency Room [address] [place] [address] Nimisha Ruano MD [address] [place] [address] Gi Problem Discharge Disposition: Home or Self Care (Routine [...] your doctor or pharmacy? Never 05/23/2024 [facility] Utilities Answer Date Recorded In the past 12 months has e [employer], gas, oil, or water [facility] threatened to shut off services in [...] Recorded Patient Health Questionnaire-2 Score 0 04/03/2024 [facility] - Occupational Stress [...] any time in the past [address] [facility], were you homeless or living in a chcf (including now)? No 05/23/2024 Education Answer Date Recorded What is the highest level of school you have completed or the highest degree you have received? 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, KEKE) 12/21/2018 Comments No Sex and [...] Sign Reading Time Taken Comments Blood Pressure 110/66 05/22/2024 1:20 PM CDT Pulse 80 05/22/2024 1:20 PM CDT Temperature 37.1 ??C (98.7 ??F) 05/22/2024 1:20 PM CD T Respiratory Rate 20 05/22/2024 1:20 PM CDT Oxygen Saturation 98% 05/22/2024 12:00 PM CDT Inhaled Oxygen Concentration - - Weight 78.5 kg (173 lb) 05/22/2024 8:43 AM CDT Height 172.7 cm (5' 8 ) 05/22/2024 8:43 AM CDT Body Mass Index 26.3 05/22/2024 8:43 AM CDT documented in this encounter Discharge Instructions * Discharge Instructions* Nimisha Ruano MD - 05/22/2024 12:59 PM CDT Follow up with health science writer and your primary care provider. Continue the antibiotics that were previously prescribed. Return if symptoms worsen. * Attachments The following attachments cannot be sent through Care Everywhere. * Nausea and Vomiting Discharge Instructions, Adult (Turkish) documented in this encounter Medications at Time [...] for 5 days. 10 capsule 05/21/2024 4 clobetasol (TEMOVATE) 0.05 % ointment 10/26/2023 4 folic acid (FOLVITE) 1 MG tablet Take 1 tablet (1 mg total) by mouth daily. 4 gabapentin (NEURONTIN) 100 MG capsule 11/30/2023 4 metroNIDAZOLE (FLAGYL) 500 MG tablet Take 1 tablet (500 mg total) by mouth 3 (three) times daily for 5 days. 15 tablet 05/21/2024 4 multivitamin tablet Take 2 tablets by mouth daily. 4 nabumetone 500 MG tablet Take 2 tablets (1,000 mg total) by mouth 2 (two) times daily. 11/24/2021 4 ondansetron (ZOFRAN-ODT) 8 MG disintegrating tablet Take 1 tablet (8 mg total) by mouth every 8 (eight) hours as needed for Nausea. 20 tablet 05/22/2024 4 oxyCODONE-acetaminop hen (PERCOCET) 5-325 MG tabletIndications:Ac [place] Pain < 3 Day Supply Take 1 tablet by mouth every 4 (four) hours as needed for Pain. Indications: Acute Pain < 3 Day Supply 12 tablet 05/21/2024 4 pantoprazole (PROTONIX) 40 MG packet Take 1 packet by mouth daily. 30 tablet 05/22/2024 4 polyethylene glycol packet Take 240 mLs (1 packet total) by mouth daily as needed. 4 traZODone (DESYREL) 100 MG tabletIndications:In somnia due to other mental disorder Take 1.5 tablets (150 mg total) by mouth nightly at bedtime. 135 tablet 3 05/11/2024 4 documented as of this encounter ED Notes * Nimisha Ruano MD - 05/22/2024 11:22 AM CDT Chief Complaint Chief Complaint Patient presents with Gi Problem History of Present Illness This is a 59 year old female with history of RA and IBS who presents for evaluation of abdominal pain with nausea and vomiting. Patient was evaluated in ER yesterday for upper abdominal pain with nausea and vomiting. She was assessed with CT chest , abdomen and pelvis. She was discharged home with pain medication and antibiotics. She woke up at 3 am this morning with nausea and vomiting. She reports she felt lightheaded when she was walking to the bathroom so she laid herself on the floor. She thinks she may have passed out . She has been unable to stop her vomiting and she was not prescribedantiemetic until this morning. She denies associated chest pain or shortness of breath. History provided by: Patient and spouse Gi Problem Onset quality: Sudden Duration: 6 hours Timing: Constant Chronicity: New Associated symptoms: abdominal pain, fatigue, nausea and vomiting Associated symptoms: no chest pain, no congestion, no cough, no diarrhea, no ear pain, no fever, norash, no shortness of breath and no sore throat Medical History ALLERGIES: Review of patient's allergies indicates: Allergen Reactions Levofloxacin Nausea and Vomiting, Nausea Only, Hallucinations and Other (see comment) hallucinations Other reaction(s): Other hallucinations MEDICATIONS: Prior to Admission medications Medication Sig Start Date End Date Taking? Authorizing Provider ondansetron (ZOFRAN-ODT) 8 MG disintegrating tablet Take 1 tablet (8 mg total) by mouth every 8 (eight) hours as needed for Nausea. 05/22/24 Yes Nimisha Ruano MD pantoprazole (PROTONIX) 40 MG packet Take 1 packet by mouth daily. 05/22/24 Yes Nimisha Ruano MD ALPRAZolam (XANAX) 0.25 MG tablet Take 1 tablet (0.25 mg total) by mouth nightly as needed for Anxiety or Sleep. FOR ANXIETY 05/16/24 Dayanara Plaza MD cefdinir (OMNICEF) 300 MG Cap capsule Take 1 capsule (300 mg total) by mouth 2 (two) times daily for 5 days. 05/21/24 05/26/24 Sam Gage MD dicyclomine (BENTYL) 20 MG tablet Take 1 tablet (20 mg total) by mouth every 6 (six) hours as needed. 05/11/24 Dayanara Plaza MD estradiol (ESTRACE) 0.1 MG/GM vaginal cream 10/26/23 Default History Genericprovider etanercept 50 MG/ML injection Inject 1 mL (50 mg total) into the skin weekly. 05/30/14 [facility] fexofenadine (PIYUSH) 180 MG tablet Take 1 tablet (180 mg total) by mouth daily. Default History Genericprovider folic acid (FOLVITE) 1 MG tablet Take 1 tablet (1 mg total) by mouth daily. Default History Genericprovider gabapentin (NEURONTIN) 100 MG capsule 11/30/23 Default History Genericprovider methotrexate 2.5 MG tablet Take by mouth once a week. Take 6 tablets every 7 days. 06/06/18 [facility] metroNIDAZOLE (FLAGYL) 500 MG tablet Take 1 tablet (500 mg total) by mouth 3 (three) times daily for 5 days. 05/21/24 05/26/24 Sam Gage MD montelukast (SINGULAIR) 10 MG tablet TAKE 1 TABLET (10 MG TOTAL) BY MOUTH DAILY. 11/29/23 Dayanara Plaza MD multivitamin tablet Take 2 tablets by mouth daily. [facility] nabumetone 500 MG tablet Take 2 tablets (1,000 mg total) by mouth 2 (two) times daily. 11/24/21 [facility] oxyCODONE-acetaminophen (PERCOCET) 5-325 MG tablet Take 1 tablet by mouth every 4 (four) hours as needed for Pain. Indications: Acute Pain < 3 Day Supply 05/21/24 Sam Gage MD polyethylene glycol packet Take 240 mLs (1 packet total) by mouth daily as needed. [facility] traZODone (DESYREL) 100 MG tablet Take 1.5 tablets (150 mg total) by mouth nightly at bedtime. 05/11/24 Dayanara Plaza MD valACYclovir 1 g tablet as needed. 10/10/19 [facility] PAST MEDICAL HISTORY: Past Medical History: Diagnosis Date Anxiety Cataract surgery 2020 COVID-19 GERD (gastroesophageal reflux disease) Heart murmur IBS (irritable bowel syndrome) Inflammatory arthritis Plantar fasciitis RA (rheumatoid arthritis) ([facility]HCC) Wears glasses PAST SURGICAL HISTORY: Past Surgical History: Procedure Laterality Date CHOLECYSTECTOMY COLONOSCOPY N/A 03/17/2021 COLONOSCOPY-NORMAL performed by Niall Matute MD at [facility] GI COLONOSCOPY STOMA DX INCLUDING COLLJ [...] No Review of Systems Review of Systems Constitutional: Positive for fatigue. Negative for chills and fever. HENT: Negative for congestion, ear discharge, ear pain, sore throat and trouble swallowing. Eyes: Negative for pain and visual disturbance. Respiratory: Negative for cough, chest tightness and shortness of breath. Cardiovascular: Negative for chest pain and leg swelling. Gastrointestinal: Positive for abdominal pain, nausea and vomiting. Negative for blood in stool anddiarrhea. Endocrine: Negative for polydipsia and polyuria. Genitourinary: Negative for dysuria and hematuria. Musculoskeletal: Negative for arthralgias and gait problem. Skin: Negative for pallor and rash. Allergic/Immunologic: Negative for immunocompromised state. Neurological: Positive for syncope and light-headedness. Negative for facial asymmetry, speech difficulty, weakness and numbness. Psychiatric/Behavioral: Negative for hallucinations and suicidal ideas. Physical Exam Filed Vitals: 05/22/24 1135 05/22/24 1137 05/22/24 1200 05/22/24 1320 BP: 98/64 101/74 110/66 Pulse: 70 88 80 Resp: 16 23 20 Temp: 98.7 ??F (37.1 ??C) TempSrc: Temporal SpO2: 98% Weight: Height: Physical Exam Vitals and nursing note reviewed. Constitutional: Appearance: She is normal weight. She is ill-appearing. She is not toxic-appearing. HENT: Head: Normocephalic and atraumatic. Right Ear: External ear normal. Left Ear: Tympanic membrane and external ear normal. Mouth/Throat: Mouth: Mucous membranes are moist. Pharynx: Oropharynx is clear. Eyes: Extraocular Movements: Extraocular movements intact. Cardiovascular: Rate and Rhythm: Normal rate and regular rhythm. Pulses: Normal pulses. Heart sounds: No murmur heard. Pulmonary: Effort: Pulmonary effort is normal. No respiratory distress. Breath sounds: Normal breath sounds. No wheezing. Abdominal: General: Bowel sounds are normal. There is no distension. Palpations: Abdomen is soft. Tenderness: Tenderness: epigastric. There is no rebound. Musculoskeletal: General: No swelling, tenderness or deformity. Cervical back: Normal range of motion and neck supple. No rigidity. Skin: General: Skin is warm and dry. Capillary Refill: Capillary refill takes less than 2 seconds. Neurological: General: No focal deficit present. Mental Status: She is alert and oriented to person, place, and time. Cranial Nerves: No cranial nerve deficit. Sensory: No sensory deficit. Psychiatric: Mood and Affect: Mood normal. Behavior: Behavior normal. Thought Content: Thought content normal. Diagnostic Studies / Procedures ELECTROCARDIOGRAMS: Results for orders placed or performed during the hospital encounter of 05/22/24 ECG 12 lead Narrative [facility] Test Date: 2024-05-22 Pat Name: [facility] Department: 85 Room: EXAM 505 Gender: Female Adjunct History Instructor: : 1965 Requested By: NIMISHA RUANO Order Number: [id number] Reading MD: Measurements Intervals [place] Rate: 73 P: 82 WA: 168 QRS: 58 QRSD: 89 T: 48 QT: 381 QTc: 422 Interpretive Statements SINUS RHYTHM Compared to ECG 09/01/2023 11:48:43 No significant changes LABORATORY STUDIES: Results for orders placed or performed during the hospital encounter of 05/22/24 COMPREHENSIVE METABOLIC PANEL Result Value Ref Range GLUCOSE 137 (H) 70 - 99 MG/DL BUN 18 7 - 18 MG/DL CREATININE S/P/B 0.94 0.55 - 1.02 MG/DL SODIUM S/P/B 139 136 - 145 MMOL/L POTASSIUM S/P/B 4.1 3.5 - 5.1 MMOL/L CHLORIDE S/P/B 101 100 - 108 MMOL/L CO2 27.0 21 - 32 MMOL/L CALCIUM S/P/B 10.4 (H) 8.5 - 10.1 MG/DL BILIRUBIN TOTAL S/P/B 0.6 0.2 - 1.2 MG/DL TOTAL PROTEIN S/P/B 7.8 6.4 - 8.2 G/DL ALBUMIN S/P/B 3.7 3.4 - 5.0 G/DL AST 22 15 - 37 U/L ALT 29 14 - 55 U/L ALKALINE PHOSPHATASE S/P/B 117 50 - 136 U/L ANION GAP 11.0 5 - 15 MMOL/L BUN CREATININE RATIO 19.1 6 - 26 A/G RATIO 0.9 (L) 1.0 - 2.0 RATIO GFR ESTIMATE 69 (L) >90 ML/MIN/1.73 M2 MAGNESIUM Result Value Ref Range MAGNESIUM 1.9 1.8 - 2.4 MG/DL CBC W/DIFF AUTOMATED Result Value Ref Range WBC 10.00 4.4 - 11.0 x10'3/uL RBC 4.11 (L) 4.50 - 5.10 x10'6/uL HGB 13.6 12.3 - 15.3 G/DL HCT 40.3 35.9 - 44.6 % MCV 98.1 (H) 80.0 - 96.0 FL MCH 33.1 (H) 25.3 - 30.9 PG MCHC 33.7 31.0 - 34.1 G/DL RDW 14.6 12.4 - 15.1 % PLT 221 151 - 353 x10'3/uL MPV 10.2 9.6 - 12.0 FL RBC MORPHOLOGY NORMAL PLT MORPH. NORMAL WBC MORPHOLOGY NORMAL LYMPHOCYTES 9.6 (L) 15.8 - 45.0 % NEUTROPHILS 84.2 (H) 42.1 - 71.9 % MONOCYTES 5.4 (L) 5.7 - 12.5 % EOSINOPHILS 0.2 0.0 - 5.6 % BASOPHILS 0.2 0.0 - 1.3 % ABS. NEUTROPHILS 8.42 (H) 1.40 - 6.00 x10'3/uL IMMATURE GRANS 0.4 0.0 - 0.5 % ABS. LYMPHOCYTES 0.96 0.80 - 4.70 x10'3/uL IMAGING STUDIES No orders to display ED Course / Medical Decision Making Medical Decision Making Patient return to ER for nausea and vomiting. I reviewed labs, note and imaging from yesterday. Shewas prescribed antibiotics but no antiemetic. Labs today show resolved hypokalemia and still normalwbc so no repeat imaging as abdominal exam is non surgical. She was given 2 liter IV , zofran 4 mg IV. She had improvement in her symptoms. I reviewed test from today and yesterday with patient. She is agreeable and comfortable with discharge home to follow up with GI. I sent prescription for antiemetic to pharmacy for pain. Amount and/or Complexity of Data Reviewed Independent Historian: spouse External Data Reviewed: labs, radiology and notes. Details: Patient had CT chest, abdomen and pelvis showing enteritis, no abscess Labs: ordered. Decision-making details documented in ED Course. Details: Resolved hypokalemia ECG/medicine tests: ordered and independent interpretation performed. Details: EKG at 0853 shows sinus rhythm with rate 73, normal QT interval, baseline artifact, nonspecific ST and t abnormalities. ED Course as of 05/22/24 1449 Mon May 22, 2024 1127 Patient states she feels better. She will get PO challenge [KH] 1202 Patient able to tolerate PO. She is getting second bag of fluids. She denies any other questions or concerns. [KH] 1258 Patient will continue antibiotics at home and follow up with GI. Labs are stable, [KH] ED Course User Index [KH] Nimisha Ruano MD Clinical Impression Nausea and vomiting (Primary) Disposition: Discharge Nimisha Ruano MD 05/22/24 1449 * Kathie Blankenship RN - 05/22/2024 8:46 AM CDT Seen here yesterday for same continued to have vomiting throughout the night and had an episode in the bathroom while sitting on the floor where she feels she passed out. Has been taking the pain meds and had to take potassium documented in this encounter Plan of Treatment Upcoming Encounters Date Type Department Care Team (Late st Contact Info) Description 11/14/2024 8:00 AM COMMUNITY COORDINATOR Office Visit [facility] Multispecialty Care - [facility] [address] [facility], [address] [place] [phone] Montserrat Oliver NP 3 [facility] [address] [place] [address] 12/06/2024 9:30 AM COMMUNITY COORDINATOR Appointment [facility] Open MRI [address] [place] [address] [place] [address] [place], [place] [id number] 03/02/2025 3:20 PM CDT Office Visit [facility] Family & Internal Medicine [address] [phone] [place] [address] [place] [address] documented as of this encounter Procedures Procedure Name Priority Date/Time Associated Diagnosis Comments COMPREHENSIVE METABOLIC PANEL STAT 05/22/2024 8:55 AM CDT CBC W/DIFF AUTOMATED STAT 05/22/2024 8:55 AM CDT MAGNESIUM STAT 05/22/2024 8:55 AM CDT ECG 12-LEAD Routine 05/22/2024 8:53 AM CDT documented in this encounter Results * (ABNORMAL) CBC W/DIFF AUTOMATED (05/22/2024 8:55 AM CDT) WBC 10.00 4.4 - 11.0 x10'3/uL 05/22/2024 9:13 AM CDT [facility] RBC 4.11(L) 4.50 - 5.10 x10'6/uL 05/22/2024 9:13 AM CDT [facility] HGB 13.6 12.3 - 15.3 G/DL 05/22/2024 9:13 AM CDT [facility] HCT 40.3 35.9 - 44.6 % 05/22/2024 9:13 AM CDT [facility] MCV 98.1(H) 80.0 - 96.0 FL 05/22/2024 9:13 AM CDT [facility] MCH 33.1(H) 25.3 - 30.9 PG 05/22/2024 9:13 AM T [facility] MCHC 33.7 31.0 - 34.1 G/DL 05/22/2024 9:13 AM T [facility] RDW 14.6 12.4 - 15.1 % 05/22/2024 9:13 AM T [facility] PLT 221 151 - 353 x10'3/uL 05/22/2024 9:13 AM T [facility] MPV 10.2 9.6 - 12.0 FL 05/22/2024 9:13 AM T [facility] RBC MORPHOLOGY NORMAL 05/22/2024 9:13 AM T [facility] PLT MORPH. NORMAL 05/22/2024 9:13 AM [facility] WBC MORPHOLOGY NORMAL 05/22/2024 9:13 AM T [facility] LYMPHOCYTES % 9.6(L) 15.8 - 45.0 % 05/22/2024 9:13 AM [facility] NEUTROPHILS % 84.2(H) 42.1 - 71.9 % 05/22/2024 9:13 AM T [facility] MONOCYTES % 5.4(L) 5.7 - 12.5 % 05/22/2024 9:13 AM [facility] EOSINOPHILS 0.2 0.0 - 5.6 % 05/22/2024 9:13 AM T [facility] BASOPHILS 0.2 0.0 - 1.3 % 05/22/2024 9:13 AM T [facility] ABS. NEUTROPHILS 8.42(H) 1.40 - 6.00 x10'3/uL 05/22/2024 9:13 AM CDT [facility] IMMATURE GRANS % 0.4 0.0 - 0.5 % 05/22/2024 9:13 AM CDT [facility] ABS. LYMPHOCYTES 0.96 0.80 - 4.70 x10'3/uL 05/22/2024 9:13 AM CDT [facility] 05/22/2024 8:55 AM CDT Nimisha Ruano MD LABORATORY Final Result [facility] [address] [place] [address], [place] [phone] * MAGNESIUM (05/22/2024 8:55 AM CDT) MAGNESIUM 1.9 1.8 - 2.4 MG/DL 05/22/2024 9:22 AM CDT [facility] 05/22/2024 8:55 AM CDT Nimisha Ruano MD LABORATORY Final Result [facility] [address] [place] [address], [place] [phone] * (ABNORMAL) COMPREHENSIVE METABOLIC PANEL (05/22/2024 8:55 AM CDT) GLUCOSE 137(H) 70 - 99 MG/DL 05/22/2024 9:22 AM CDT [facility] BUN 18 7 - 18 MG/DL 05/22/2024 9:22 AM CDT [facility] CREATININE S/P/B 0.94 0.55 - 1.02 MG/DL 05/22/2024 9:22 AM CDT [facility] SODIUM S/P/B 139 136 - 145 MMOL/L 05/22/2024 9:22 AM [facility] POTASSIUM S/P/B 4.1 3.5 - 5.1 MMOL/L 05/22/2024 9:22 AM [facility] CHLORIDE S/P/B 101 100 - 108 MMOL/L 05/22/2024 9:22 AM [facility] CO2 27.0 21 - 32 MMOL/L 05/22/2024 9:22 AM [facility] CALCIUM S/P/B 10.4(H) 8.5 - 10.1 MG/DL 05/22/2024 9:22 AM [facility] BILIRUBIN TOTAL S/P/B 0.6 0.2 - 1.2 MG/DL 05/22/2024 9:22 AM [facility] TOTAL PROTEIN S/P/B 7.8 6.4 - 8.2 G/DL 05/22/2024 9:22 AM [facility] ALBUMIN S/P/B 3.7 3.4 - 5.0 G/DL 05/22/2024 9:22 AM [facility] AST 22 15 - 37 U/L 05/22/2024 9:22 AM [facility] ALT 29 14 - 55 U/L 05/22/2024 9:22 AM [facility] ALKALINE PHOSPHATASE S/P/B 117 50 - 136 U/L 05/22/2024 9:22 AM [facility] ANION GAP 11.0 5 - 15 MMOL/L 05/22/2024 9:22 AM [facility] BUN CREATININE RATIO 19.1 6 - 26 05/22/2024 9:22 AM [facility] A/G RATIO 0.9(L) 1.0 - 2.0 RATIO 05/22/2024 9:22 AM CDT [facility] GFR ESTIMATE 69(L) >90 ML/MIN/1.7 3 M2 05/22/2024 9:22 AM CDT [facility] Comment: NOTE: eGFR is not calculated for patients <18 years of age. This is an estimated GFR calculation using the new CKD EPI creatinine equation without race and so does not require a correction factor for race. This estimated GFR should not be used for calculating drug doses. 05/22/2024 8:55 AM CDT us Nimisha Ruano MD LABORATORY Final Result [facility] [address] [place] [address], * ECG 12 lead (05/22/2024 8:53 AM CDT) 05/22/2024 8:53 AM CDT Narrative [facility] RAD - 05/22/2024 11:02 PM CDT [facility] ? Test Date: ?2024-05-22 Pat Name: ? HANS [facility]CUAL ? Department: ?? 85 ? Room: ? EXAM 505 Gender: ? Female ? Adjunct History Instructor: ?? : ?1965 ? Requested By: NIMISHA White Number: [id number] ? Reading MD: ?? Guanako Hancock ? Measurements Intervals ?[place] ? Rate: ? 73 ? P: ?82 WA: ? 168 ?QRS: ?58 QRSD: ? 89 ? T: ?48 QT: ? 381 ? QTc: ?422 ? Interpretive Statements SINUS RHYTHM Compared to ECG 09/01/2023 11:48:43 No significant changes Procedure Note Guanako Hancock MD - 05/22/2024 [facility] Test Date: 2024-05-22 Pat Name: [facility] Department: 85 Room: EXAM 505 Gender: Female Adjunct History Instructor: : 1965 Requested By: NIMISHA RUANO Order Number: [id number] Reading MD: Guanako Hancock Measurements Intervals [place] Rate: 73 P: 82 WA: 168 QRS: 58 QRSD: 89 T: 48 QT: 381 QTc: 422 Interpretive Statements SINUS RHYTHM Compared to ECG 09/01/2023 11:48:43 No significant changes us Nimisha Ruano MD ECG ORDERABLES Final Result [facility] ([facility] RAD documented in this encounter Visit Diagnoses Diagnosis Nausea and vomiting- Primary Nausea with vomiting documented in this encounter Administered Medications Inactive Administered Medications - up to 3 most recent administrations Medication Order MAR Action Action Date Dose Rate Site HYDROmorphone (DILAUDID) injection 0.5 mg 0.5 mg, Intravenous, Once, 1 dose, On Wed05/22/24 at 0900, Administer slowly over at least 2-3 minutes. Given 05/22/2024 8:57 AM CDT 0.5 mg ondansetron (ZOFRAN) injection 4 mg 4 mg, Intravenous, Once, 1 dose, On Wed05/22/24 at 0900, IV push over 2-5 minutes. Given 05/22/2024 8:57 AM CDT 4 mg pantoprazole (PROTONIX) 40 mg in sodium chloride (PF) 0.9 % 10 mL IV 40 mg, Intravenous, Once, 1 dose, On Wed05/22/24 at 0900, Reconstitute each 40 mg vial with 10 mL normal saline to a final concentration of 4 mg/mL. Administer intravenously over a period of a least 2 minutes. Given 05/22/2024 8:57 AM CDT 40 mg sodium chloride 0.9% bolus infusion 1,000 mL 1,000 mL, Intravenous, Administer over 60 Minutes, Once, 1 dose, On Wed05/22/24 at 0900 New Bag 05/22/2024 8:57 AM CDT 1,000 mLs 1000 mL/hr sodium chloride 0.9% bolus infusion 1,000 mL 1,000 mL, Intravenous, Administer over 60 Minutes, Bolus (Once), 1 dose, On Wed05/22/24 at 1130 New Bag 05/22/2024 11:36 AM CDT 1,000 mLs 1000 mL/hr documented in this encounter Active and Recently Administered Medications Times are shown in CDT. Scheduled Medication Order 05/20/2024 05/21/2024 05/22/2024 HYDROmorphone (DILAUDID) injection 0.5 mg (COMPLETED) 0.5 mg, Intravenous, Once, 1 dose, On Wed05/22/24 at 0900, Administer slowly over at least 2-3 minutes. 0857 (Given - Provid er: Kathie Blankenship RN) ondansetron (ZOFRAN) injection 4 mg (COMPLETED) 4 mg, Intravenous, Once, 1 dose, On Wed05/22/24 at 0900, IV push over 2-5 minutes. 0857 (Given - Provid er: Kathie Blankenship RN) pantoprazole (PROTONIX) 40 mg in sodium chloride (PF) 0.9 % 10 mL IV (COMPLETED) 40 mg, Intravenous, Once, 1 dose, On Wed05/22/24 at 0900, Reconstitute each 40 mg vial with 10 mL normal saline to a final concentration of 4 mg/mL. Administer intravenously over a period of a least 2 minutes. 0857 (Given - Provid er: Kathie Blankenship RN) sodium chloride 0.9% bolus infusion 1,000 mL (COMPLETED) 1,000 mL, Intravenous, Administer over 60 Minutes, Once, 1 dose, On Wed05/22/24 at 0900 0857 (New Bag - Prov ider: Kathie Blankenship RN)1320 (Infusion Stop Time - Provider: Kathie Blankenship RN) sodium chloride 0.9% bolus infusion 1,000 mL (COMPLETED) 1,000 mL, Intravenous, Administer over 60 Minutes, Bolus (Once), 1 dose, On Wed05/22/24 at 1130 1136 (New Bag - Prov ider: Kathie Blankenship RN)1319 (Infusion Stop Time - Provider: Kathie Blankenship RN) documented in this encounter Additional Health Concerns Assessment Noted Time PHQ-9 Depression Total Score: 0 04/03/20 10:56 AM CDT documented as of this encounter Care Teams Undraped Artist Model Relationship Specialty [place] [address] [place] [address] PCP - General FAMILY PRACTICE 03/01/23 Perez Cervantes MD [address] [phone] RHEUMATOLOGY 09/02/23 Adriana Ma MD [address] [place] [address] Referring Physician ALLERGY 09/02/23 documented as of this encounter
--- OUTSIDE RECORDS SUMMARY | 2024-11-13 17:11 | XMS_ITS | Encounter Summary ---
Author Organization [facility] Address [address] [place] [address]. [place] [address] [place] [address] Care Team Providers Care Corrective Therapy Aide Name Role Phone Dayanara Plaza MD Primary Care Provider [phone] Perez Cervantes MD Unavailable Adriana Ma MD Unavailable [phone] Encounter Details Date Type Department Care Team (Late st Contact Info) Description 11/19/2023 Health: Eltt Message Enc [facility] Family & Internal Medicine [facility] [id number] [place] [phone] Dayanara Plaza [place] [id number] [place] [address]. [address] [place] [address] Still worried Social History Tobacco Use Types Packs/Day Years [...] Master's degree (e.g., MA, MS, Howard, MEd, JUMPBASTING FACING BASTER, KEKE) 12/21/2018 Comments No Sex and Gender [...] st Contact Info) Description 11/14/2024 8:00 AM DIVING INSTRUCTOR Office Visit [facility] Multispecialty Care - [facility] 3 [facility], [address] [place] [phone] Montserrat Oliver NP 3 [facility] [address] [place] [address] 12/06/2024 9:30 AM DIVING INSTRUCTOR Appointment [facility] Open MRI [address] [place] [address] [place] [address] [facility] [email or web address]. [address] [place] [phone] 03/02/2025 3:20 PM CDT Office Visit [facility] Family & Internal Medicine - [address] [phone] [place] [address] [address] [place] [address] documented as of this encounter Visit Diagnoses Not on filedocumented in this encounter Additional Health Concerns Infection Onset Date Last Indicated Resolved Time COVID-19 Rule Out 04/03/2024 04/03/2024 04/03/2024 11:38 AM CDT Assessment Noted Time PHQ-9 Depression Total Score: 2 05/27/20 11:36 AM CDT documented as of this encounter Care Teams Corrective Therapy Aide Relationship Specialty [place] [address] [address] [place] [address] PCP - General FAMILY PRACTICE 03/01/23 Perez Cervantes MD [address] [phone] RHEUMATOLOGY 09/02/23 Adriana Ma MD [address] [place] [address] Referring Physician ALLERGY 09/02/23 documented as of this encounter
--- OUTSIDE RECORDS SUMMARY | 2024-11-13 17:11 | XMS_ITS | Encounter Summary ---
Author Organization [facility] Address [address] [place] [address]. [place], [place] [id number] [place] [address] Care Team Providers Care Gang Pusher Name Role Phone Dayanara Plaza MD Primary Care Provider [phone] Encounter Details Date Type Department Care Team (Latest Contact Info) Description 09/01/2023 Travel Social History Tobacco Use Types Packs/Day [...] Master's degree (e.g., MA, MS, Howard, MEd, CAN REPAIRER, KEKE) 12/21/2018 Comments No Sex and [...] (Late Contact Info) Description 11/14/2024 8:00 AM SAND PLANT ATTENDANT Office Visit [facility] Multispecialty Care - [facility] 3 [facility], [address] [place] [address] Montserrat Oliver, DOREEN 3 [facility] [address] [place] [address] 12/06/2024 9:30 AM SAND PLANT ATTENDANT Appointment [facility] Open MRI [address] [facility] [place] [address] [place] [address] [address] [place] [address] 03/02/2025 3:20 PM CDT Office Visit [facility] Family & Internal Medicine - [address] [phone] [place] [address] [place] [address] documented as of this encounter Visit Diagnoses Not on filedocumented in this encounter Additional Health Concerns Assessment Noted Time PHQ-9 Depression Total Score: 2 05/27/20 22 11:36 AM CDT documented as of this encounter Care Teams Gang Pusher Relationship Specialty [place] [address] [address] [place] [address] PCP - General FAMILY PRACTICE 03/01/23 documented as of this encounter
--- OUTSIDE RECORDS SUMMARY | 2024-11-13 17:11 | XMS_ITS | Encounter Summary ---
Author Organization [facility] Address [address] [place] [address]. [place] [address] [place] [address] Care Team Providers Care Discharge Rn Name Role Phone Dayanara Plaza MD Primary Care Provider [phone] Perez Cervantes MD Unavailable Adriana Ma MD Unavailable [phone] Reason for Referral * Imaging (Emergency) - New Request Specialty Diagnoses / Procedures Referred By Contac t Referred To Contact RADIOLOGY Procedures CTA CHEST+ABD+PEL Sam Gage MD [address] [place] [address] Phone: tel: fax: Referral ID Status Reason Start Date Expiration Date V isits Requested Visits Authorized [id number] New Request 05/21/2024 05/21/2025 1 1 Reason for Visit * Reason Comments Abdominal Pain Encounter Details Date Type Department Care Team (Late st Contact Info) Description 05/21/2024 3:23 PM CDT - 05/21/2024 7:48 PM CDT Emergency [facility] Emergency Room [id number] [place] [id number] Abdominal Pain Discharge Disposition: Home or Self Care (Routine [...] degree (e.g., MA, MS, Howard, MEd, DIRECTOR PUBLIC SERVICE, KEKE) 12/21/2018 Comments No Sex and Gender [...] Sign Reading Time Taken Comments Blood Pressure 121/60 05/21/2024 7:00 PM CDT Pulse 75 05/21/2024 3:28 PM CDT Temperature 36.6 ??C (97.8 ??F) 05/21/2024 7:00 PM CD T Respiratory Rate 18 05/21/2024 3:28 PM CDT Oxygen Saturation 93% 05/21/2024 7:00 PM CDT Inhaled Oxygen Concentration - - Weight 78.5 kg (173 lb) 05/21/2024 3:28 PM CDT Height 172.7 cm (5' 8 ) 05/21/2024 3:28 PM CDT Body Mass Index 26.3 05/21/2024 3:28 PM CDT documented in this encounter Discharge Instructions * Discharge Instructions* Sam Gage MD - 05/21/2024 7:15 PM CDT Take antibiotics as prescribed. Use Percocet as needed for breakthrough pain. Continue taking Bentyl if this helps decrease the pain in your abdomen. Take MiraLAX once to twice daily to prevent pain medication associated constipation. documented in this encounter Medications at Time of Discharge ALPRAZolam (XANAX) 0.25 MG tabletIndications: Anxiety Take 1 tablet (0.25 mg total) by mouth nightly as needed for Anxiety or Sleep. FOR ANXIETY 30 tablet 05/16/2024 dicyclomine (BENTYL) 20 MG tabletIndications: Irritable bowel [...] 7 days. 06/06/2018 montelukast (SINGULAIR) 10 MG tabletIndications: Seasonal allergies [...] mouth 2 (two) times daily. 11/24/2021 4 oxyCODONE-acetamin ophen (PERCOCET) 5-325 MG tabletIndications: Acute Pain < 3 Day Supply Take 1 tablet by mouth every 4 (four) hours as needed for Pain. Indications: Acute Pain < 3 Day Supply 12 tablet 05/21/2024 4 polyethylene glycol packet Take 240 mLs (1 packet total) by mouth daily as needed. 4 traZODone (DESYREL) 100 MG tabletIndications: Insomnia due to other mental disorder Take 1.5 tablets (150 mg total) by mouth nightly at bedtime. 135 tablet 3 05/11/2024 4 documented as of this encounter ED Notes * Sam Gage MD - 05/21/2024 4:12 PM CDT Chief Complaint Chief Complaint Patient presents with Abdominal Pain History of Present Illness 59-year-old female with a history of RA and IBS presents with abdominal pain. Patient reports severe mid and lower abdominal pain beginning yesterday. The pain has been increasingly worsening, associated with nausea and dry heaving. While she has a history of IBS she has never experienced symptoms this severe. She reports that she took a dicyclomine yesterday which provided some relief however the pain remained to this morning and persisted despite repeat dicyclomine and Pepcid. She denies fevers, chills, body aches, chest pain, shortness of breath. No hemoptysis or hematochezia. Reports history of cholecystectomy but no other abdominal surgeries. Medical History ALLERGIES: Review of patient's allergies [...] days. 05/21/24 05/26/24 Yes Sam Gage MD metroNIDAZOLE (FLAGYL) 500 MG tablet Take 1 tablet (500 mg total) by mouth 3 (three) times daily for 5 days. 05/21/24 05/26/24 Yes Sam Gage MD oxyCODONE-acetaminophen (PERCOCET) 5-325 MG tablet Take 1 tablet by mouth every 4 (four) hours as needed for Pain. Indications: Acute Pain < 3 Day Supply 05/21/24 Yes Sam Gage MD ALPRAZolam (XANAX) 0.25 MG tablet Take 1 tablet (0.25 mg total) by mouth nightly as needed for Anxiety or Sleep. FOR ANXIETY 05/16/24 Dayanara Plaza MD dicyclomine (BENTYL) 20 MG tablet Take [...] every 7 days. 06/06/18 [facility] montelukast (SINGULAIR) 10 MG tablet TAKE 1 TABLET (10 MG TOTAL) BY MOUTH DAILY. 11/29/23 Dayanara Plaza MD multivitamin tablet Take 2 tablets by mouth daily. [facility] nabumetone 500 MG tablet Take 2 tablets (1,000 mg total) by mouth 2 (two) times daily. 11/24/21 [facility] polyethylene glycol packet Take 240 mLs (1 [...] Inflammatory arthritis Plantar fasciitis RA (rheumatoid arthritis) (CMS/HCC HHS/HCC) Wears glasses PAST SURGICAL HISTORY: Past Surgical History: Procedure Laterality Date CHOLECYSTECTOMY COLONOSCOPY N/A 03/17/2021 COLONOSCOPY-NORMAL performed by Niall Matute MD at [facility] GI COLONOSCOPY STOMA DX INCLUDING [...] No Review of Systems Review of Systems Pertinent ROS per HPI Physical Exam Filed Vitals: 05/21/24 1528 05/21/24 1735 05/21/24 1900 BP: 115/69 107/60 121/60 Pulse: 75 Resp: 18 Temp: 97.6 ??F (36.4 ??C) 97.8 ??F (36.6 ??C) SpO2: 100% 97% 93% Weight: 78.5 kg (173 lb) Height: 1.727 m (5' 8 ) Physical Exam Constitutional: General: She is in acute distress. Appearance: Normal appearance. HENT: Head: Normocephalic and atraumatic. Nose: Nose normal. Mouth/Throat: Mouth: Mucous membranes are moist. Eyes: Extraocular Movements: Extraocular movements intact. Conjunctiva/sclera: Conjunctivae normal. Cardiovascular: Rate and Rhythm: Normal rate and regular rhythm. Pulmonary: Effort: Pulmonary effort is normal. Breath sounds: Normal breath sounds. Abdominal: General: Abdomen is flat. There is no distension. Palpations: Abdomen is soft. Tenderness: There is no abdominal tenderness (Epigastric, periumbilical, and suprapubic tenderness.Positive rebound.). Musculoskeletal: General: Normal range of motion. Cervical back: Normal range of motion. Skin: General: Skin is warm and dry. Neurological: Mental Status: She is alert and oriented to person, place, and time. Mental status is at baseline. Psychiatric: Mood and Affect: Mood normal. Behavior: Behavior normal. Diagnostic Studies / Procedures ELECTROCARDIOGRAMS: No results found for this visit on 05/21/24. LABORATORY STUDIES: Results for orders placed or performed during the hospital encounter of 05/21/24 CBC W/DIFF AUTOMATED Result Value Ref Range WBC 7.53 4.4 - 11.0 x10'3/uL RBC 3.96 (L) 4.50 - 5.10 x10'6/uL HGB 13.1 12.3 - 15.3 G/DL HCT 38.7 35.9 - 44.6 % MCV 97.7 (H) 80.0 - 96.0 FL MCH 33.1 (H) 25.3 - 30.9 PG MCHC 33.9 31.0 - 34.1 G/DL RDW 14.6 12.4 - 15.1 % PLT 245 151 - 353 x10'3/uL MPV 11.2 9.6 - 12.0 FL RBC MORPHOLOGY NORMAL PLT MORPH. NORMAL WBC MORPHOLOGY NORMAL LYMPHOCYTES 45.3 (H) 15.8 - 45.0 % NEUTROPHILS 41.7 (L) 42.1 - 71.9 % MONOCYTES 11.0 5.7 - 12.5 % EOSINOPHILS 1.5 0.0 - 5.6 % BASOPHILS 0.4 0.0 - 1.3 % ABS. NEUTROPHILS 3.14 1.40 - 6.00 x10'3/uL IMMATURE GRANS 0.1 0.0 - 0.5 % ABS. LYMPHOCYTES 3.41 0.80 - 4.70 x10'3/uL COMPREHENSIVE METABOLIC PANEL Result Value Ref Range GLUCOSE 92 70 - 99 MG/DL BUN 16 7 - 18 MG/DL CREATININE S/P/B 0.92 0.55 - 1.02 MG/DL SODIUM S/P/B 141 136 - 145 MMOL/L POTASSIUM S/P/B 3.2 (L) 3.5 - 5.1 MMOL/L CHLORIDE S/P/B 103 100 - 108 MMOL/L CO2 23.9 21 - 32 MMOL/L CALCIUM S/P/B 10.0 8.5 - 10.1 MG/DL BILIRUBIN TOTAL S/P/B 0.5 0.2 - 1.2 MG/DL TOTAL PROTEIN S/P/B 7.6 6.4 - 8.2 G/DL ALBUMIN S/P/B 3.6 3.4 - 5.0 G/DL AST 20 15 - 37 U/L ALT 29 14 - 55 U/L ALKALINE PHOSPHATASE S/P/B 117 50 - 136 U/L ANION GAP 14.1 5 - 15 MMOL/L BUN CREATININE RATIO 17.4 6 - 26 A/G RATIO 0.9 (L) 1.0 - 2.0 RATIO GFR ESTIMATE 71 (L) >90 ML/MIN/1.73 M2 LIPASE Result Value Ref Range LIPASE 56 16 - 77 UNITS/L URINALYSIS, AUTO, COMPLETE Result Value Ref Range [...] 0 - 5 /HPF EPI/HPF RARE /HPF IMAGING STUDIES CTA CHEST+ABD+PEL Final Result by User, [id number] (05/21 6634) Examination: CTA CHEST+ABD+PEL Exam time: 05/21/2024 4:48 PM INDICATION: Severe mid to left abdominal pain for one day. TECHNIQUE: After administration of [...] iterative reconstruction, and ALARA (as low as reasonably achievable)/image gently techniques. COMPARISON: None FINDINGS: CHEST: There [...] By: Garcia Cosby MD, 05/21/2024 5:17 PM ED Course / Medical Decision Making Medical Decision [facility] 59-[facility] who presents with abdominal pain. On presentation, the patient is afebrile and vital signs are otherwise reassuring. Differential diagnosis includes but is not limited to: diverticulitis, IBS, colitis, SBO, appendicitis among others. Problems Addressed: Enteritis: Details: CTAP with soft tissue standing, bowel wall edema concerning for enteritis. No e/o SBO or abscess. Treatment for potential bacterial etiology initiated with ceftriaxone and flagyl. Will continue po antibiotics with cefdinir/flagyl at home. Acute supply of percocet also provided for breakthrough pain. Hypokalemia: Details: Po supplementation provided Amount and/or Complexity of Data Reviewed Labs: ordered. Decision-making details documented in ED Course. Radiology: ordered and independent interpretation performed. Decision-making details documented in ED Course. Risk OTC drugs. Prescription drug management. Parenteral controlled substances. Decision regarding hospitalization. Risk Details: Shared decision making held with patient and her . Given need for recurrent analgesics, hospital admission for continued symptoms management was discussed. Ultimately, patient elected to discharge to home with continued antibiotics and oral analgesics. I felt this option was reasonable given reassuring vitals, unremarkable labs, and she was continuing to tolerate po intake. ED Course as of 05/22/24 0848 Sun May 21, 2024 1643 CBC with no leukocytosis, anemia, or thrombocytopenia. Chemistry notable for mild hypokalemia,supplementation provided. LFTs and creatinine are within normal limits. Lipase negative. [AW] 1741 CTAP notable for mid abdominal and left lower quadrant fat stranding and bowel wall thickeningconcerning for acute enteritis. Antibiotics ordered. [AW] ED Course User Index [AW] Sam Gage MD Clinical Impression Enteritis (Primary) Hypokalemia I have discussed today's findings with the patient and provided information regarding the likely diagnosis. The patient has been given information regarding their treatment, follow up and concerning symptoms for which they should seek urgent or emergent attention. I have expressed the the importance of seeking attention should there be any new, or worsening symptoms or persistence of their condition. The patient is stable at discharge and has verbalized understanding of these instructions. Disposition: Discharge Sam Gage MD 05/22/24 0858 * Darshana Ro RN - 05/21/2024 3:27 PM CDTSummary: triage Pt states she is having severe mid abdomen and lower quad pain beginning yesterday. Pt states it has become increasingly worse and now has NV. Last BM yesterday denies blood in stool. documented in this encounter Plan of Treatment Upcoming Encounters Date Type Department Care Team (Late st Contact Info) Description 11/14/2024 8:00 AM BRAKE HOLDER Office Visit [facility] - [facility] [address] [facility] [facility], [address] [place] [address] Montserrat Oliver NP [address] [facility] [address] [place] [address] 12/06/2024 9:30 AM BRAKE HOLDER Appointment [facility] Open MRI [address] [place] [address] [place] [address] [facility] [place] [id number] 03/02/2025 3:20 PM CDT Office Visit [facility] Family & Internal Medicine - [address] [phone] [place] [address] [facility] [place], [place] [id number] documented as of this encounter Procedures Procedure Name Priority Date/Time Associated Diagnosis Comments URINALYSIS, AUTO, COMPLETE STAT 05/21/2024 5:40 PM CDT CTA CHEST+ABD+PEL STAT 05/21/2024 5:0 0 PM CDT COMPREHENSIVE METABOLIC PANEL STAT 05/21/2024 3:29 PM CDT CBC W/DIFF AUTOMATED STAT 05/21/2024 3:29 PM CDT LIPASE STAT 05/21/2024 3:29 PM CDT documented in this encounter Results * URINALYSIS, AUTO, COMPLETE (05/21/2024 5:40 PM CDT) [facility] (U) YELLOW 05/21/2024 6:24 PM CDT [facility] TRANSPARENCY CLEAR 05/21/2024 6:24 PM CDT [facility] SPECIFIC GRAVITY (U) 1.010 1.000 - 1.030 05/21/2024 6:24 PM CDT [facility] U PH 7.5 5.0 - 9.0 05/21/2024 6:24 PM CDT [facility] LEUKOCYTES (U) NEGATIVE NEGATIVE 05/21/2024 6:24 PM CDT [facility] NITRITES NEGATIVE NEGATIVE 05/21/2024 6:24 PM CDT [facility] PROTEIN RANDOM (U) NEGATIVE NEGATIVE 05/21/2024 6:24 PM CDT [facility] GLUCOSE (U) NEGATIVE NEGATIVE 05/21/2024 6:24 PM T [facility] KETONES MG/DL (U) NEGATIVE NEGATIVE 05/21/2024 6:24 PM CDT [facility] BILIRUBIN (U) NEGATIVE NEGATIVE 05/21/2024 6:24 PM T [facility] BLOOD (U) NEGATIVE NEGATIVE 05/21/2024 6:24 PM T [facility] WBC/HPF NONE SEEN 0 - 5 /HPF 05/21/2024 6:24 PM T [facility] RBC/HPF NONE SEEN 0 - 5 /HPF 05/21/2024 6:24 PM CDT [facility] EPI/HPF RARE /HPF 05/21/2024 6:24 PM T [facility] URINE SPECIMEN OBTAINED BY CLEAN CATCH PROCEDURE / Unknown 05/21/2024 5:40 PM CDT us Sam Gage MD URINE ORDERABLES F inal Result [facility] [address] [address] [id number], * CTA CHEST+ABD+PEL (05/21/2024 5:00 PM CDT) Anatomical Region Laterality Modality Chest, Abdomen, Pelvis Computed Tomography 05/21/2024 5:17 PM CDT Impressions 05/21/2024 5:28 PM CDT IMPRESSION: 1. ??There is moderate mesenteric edema/stranding in the left mid and lower abdomen, nonspecific but presumably related to enteritis. ??There is no evidence for a bowel obstruction. ??There is no drainable fluid collection or abscess noted. 2. ??There are no acute findings noted in the chest. Referred By: ?? Interpreted By: Garcia Cosby MD, 05/21/2024 5:17 PM Narrative 05/21/2024 5:28 PM CDT Examination: CTA CHEST+ABD+PEL Exam time: 05/21/2024 4:48 PM INDICATION: Severe mid to left abdominal pain for one day. TECHNIQUE: After administration of 75 mL Isovue-370 IV contrast via the right arm, arterial phase multidetector CT images were obtained through the chest, abdomen, and pelvis. Multiplanar and MIP images were created and reviewed. ??In addition, 3D image processing was performed on a separate workstation by a technologist, with images sent to PACS for review. ??A dose lowering technique was used for this procedure, which may include, but is not limited to, dose reduction techniques, automated exposure control, the use of a iterative reconstruction, and ALARA (as low as reasonably achievable)/image gently techniques. COMPARISON: None FINDINGS: CHEST: There is no evidence for thoracic aortic aneurysm or dissection. ??The origins of the great vessels are patent. ??There is no pulmonary embolism noted. ??There is evidence for previous granulomatous disease. ??Mild linear scarring or subsegmental atelectasis is noted in the left lower lobe. ??No airspace consolidation, pleural effusion, or pneumothorax. ??The central airways are patent. ??There is no lymphadenopathy. ??No pericardial effusion. ??No acute osseous abnormality. Abdomen/pelvis: There is no evidence for abdominal aortic aneurysm or dissection. ??The common and external iliac arteries are normal in caliber. ??The mesenteric vessels are patent. ??There are patent single renal arteries. ??The liver and spleen are normal in size and contour. ??Cholecystectomy. ??The pancreas is unremarkable. ??No adrenal mass. ??No hydronephrosis. ??There is symmetric renal enhancement. ??There is no ureteral calculus. ??There is no calculus in the urinary bladder. ??There is no evidence for appendicitis. ??There is moderate mesenteric edema/stranding in the left mid and lower abdomen. ??There is no bowel obstruction or free intraperitoneal air. ??Evaluation for bowel wall thickening is essentially precluded due to the phase of enhancement. ??There is a 1.6 cm oval fat density lesion in a mid to distal jejunal bowel loop, evidence for a lipoma. ??There is no lymphadenopathy noted. ??There is no drainable fluid collection or abscess. ??No acute osseous abnormality. Procedure Note Garcia Cosby MD - 05/21/2024 Examination: CTA CHEST+ABD+PEL Exam time: 05/21/2024 4:48 PM INDICATION: Severe mid to left abdominal pain for one day. TECHNIQUE: After administration of 75 mL Isovue-370 IV contrast via theright arm, arterial phase multidetector CT images were obtained throughthe chest, abdomen, and pelvis. Multiplanar and MIP images were createdand reviewed. In addition, 3D image processing was performed on [employer] workstation by a technologist, with images sent to PACS forreview. A dose lowering technique was used for this procedure, which mayinclude, but is not limited to, dose reduction techniques, automatedexposure control, the use of a iterative reconstruction, and ALARA (as lowas reasonably achievable)/image gently techniques. COMPARISON: None FINDINGS: CHEST: There is no evidence for thoracic aortic aneurysm or dissection.The origins of the great vessels are patent. There is no pulmonaryembolism noted. There is evidence for previous granulomatous disease.Mild linear scarring or subsegmental atelectasis is noted in the leftlower lobe. No airspace consolidation, pleural effusion, or pneumothorax.The central airways are patent. There is no lymphadenopathy. Nopericardial effusion. No acute osseous abnormality. Abdomen/pelvis: There is no evidence for abdominal aortic aneurysm ordissection. The common and external iliac arteries are normal in caliber.The mesenteric vessels are patent. There are patent single renalarteries. The liver and spleen are normal in size and contour.Cholecystectomy. The pancreas is unremarkable. No adrenal mass. Nohydronephrosis. There is symmetric renal enhancement. There is noureteral calculus. There is no calculus in the urinary bladder. There isno evidence for appendicitis. There is moderate mesentericedema/stranding in the left mid and lower abdomen. There is no bowelobstruction or free intraperitoneal air. Evaluation for bowel wallthickening is essentially precluded due to the phase of enhancement.There is a 1.6 cm oval fat density lesion in a mid to distal jejunal bowelloop, evidence for a lipoma. There is no lymphadenopathy noted. There isno drainable fluid collection or abscess. No acute osseous abnormality. IMPRESSION: 1. There is moderate mesenteric edema/stranding in the left mid and lowerabdomen, nonspecific but presumably related to enteritis. There is noevidence for a bowel obstruction. There is no drainable fluid collectionor abscess noted. 2. There are no acute findings noted in the chest. Referred By: Interpreted By: Garcia Cosby MD, 05/21/2024 5:17 PM Sam Gage MD CT Fi nal Result * LIPASE (05/21/2024 3:29 PM CDT) LIPASE 56 16 - 77 UNITS/L 05/21/2024 4:42 PM CDT [facility] () [facility] 05/21/2024 3:29 PM CDT Sam Gage MD LABORATORY Fi nal Result [facility] [address] [place] [address], [place] [phone] * (ABNORMAL) COMPREHENSIVE METABOLIC PANEL (05/21/2024 3:29 PM CDT) [facility] Signature GLUCOSE 92 70 - 99 MG/DL 05/21/2024 4:42 PM CDT [facility] BUN 16 7 - 18 MG/DL 05/21/2024 4:42 PM CDT [facility] CREATININE S/P/B 0.92 0.55 - 1.02 MG/DL 05/21/2024 4:42 PM CDT [facility] SODIUM S/P/B 141 136 - 145 MMOL/L 05/21/2024 4:42 PM CDT [facility] POTASSIUM S/P/B 3.2(L) 3.5 - 5.1 MMOL/L 05/21/2024 4:42 PM T [facility] CHLORIDE S/P/B 103 100 - 108 MMOL/L 05/21/2024 4:42 PM CDT [facility] CO2 23.9 21 - 32 MMOL/L 05/21/2024 4:42 PM T [facility] CALCIUM S/P/B 10.0 8.5 - 10.1 MG/DL 05/21/2024 4:42 PM T [facility] BILIRUBIN TOTAL S/P/B 0.5 0.2 - 1.2 MG/DL 05/21/2024 4:42 PM T [facility] TOTAL PROTEIN S/P/B 7.6 6.4 - 8.2 G/DL 05/21/2024 4:42 PM T [facility] ALBUMIN S/P/B 3.6 3.4 - 5.0 G/DL 05/21/2024 4:42 PM CDT [facility] AST 20 15 - 37 U/L 05/21/2024 4:42 PM CDT [facility] ALT 29 14 - 55 U/L 05/21/2024 4:42 PM CDT [facility] ALKALINE PHOSPHATASE S/P/B 117 50 - 136 U/L 05/21/2024 4:42 PM CDT [facility] ANION GAP 14.1 5 - 15 MMOL/L 05/21/2024 4:42 PM CDT [facility] BUN CREATININE RATIO 17.4 6 - 26 05/21/2024 4:42 PM CDT [facility] A/G RATIO 0.9(L) 1.0 - 2.0 RATIO 05/21/2024 4:42 PM CDT [facility] GFR ESTIMATE 71(L) >90 ML/MIN/1.7 3 M2 05/21/2024 4:42 PM CDT [facility] Comment: NOTE: eGFR is not calculated for patients <18 years of age. This is an estimated GFR calculation using the new CKD EPI creatinine equation without race and so does not require a correction factor for race. This estimated GFR should not be used for calculating drug doses. 05/21/2024 3:29 PM CDT Sam Gage MD LABORATORY Fi nal Result [facility] [address] [place] [address], * (ABNORMAL) CBC W/DIFF AUTOMATED (05/21/2024 3:29 PM CDT) WBC 7.53 4.4 - 11.0 x10'3/uL 05/21/2024 4:31 PM CDT [facility] RBC 3.96(L) 4.50 - 5.10 x10'6/uL 05/21/2024 4:31 PM CDT [facility] HGB 13.1 12.3 - 15.3 G/DL 05/21/2024 4:31 PM CDT [facility] HCT 38.7 35.9 - 44.6 % 05/21/2024 4:31 PM T [facility] MCV 97.7(H) 80.0 - 96.0 FL 05/21/2024 4:31 PM CDT [facility] MCH 33.1(H) 25.3 - 30.9 PG 05/21/2024 4:31 PM CDT [facility] MCHC 33.9 31.0 - 34.1 G/DL 05/21/2024 4:31 PM T [facility] RDW 14.6 12.4 - 15.1 % 05/21/2024 4:31 PM T [facility] PLT 245 151 - 353 x10'3/uL 05/21/2024 4:31 PM T [facility] MPV 11.2 9.6 - 12.0 FL 05/21/2024 4:31 PM T [facility] RBC MORPHOLOGY NORMAL 05/21/2024 4:31 PM T [facility] PLT MORPH. NORMAL 05/21/2024 4:31 PM T [facility] WBC MORPHOLOGY NORMAL 05/21/2024 4:31 PM T [facility] LYMPHOCYTES % 45.3(H) 15.8 - 45.0 % 05/21/2024 4:31 PM T [facility] NEUTROPHILS % 41.7(L) 42.1 - 71.9 % 05/21/2024 4:31 PM CDT [facility] MONOCYTES % 11.0 5.7 - 12.5 % 05/21/2024 4:31 PM CDT [facility] EOSINOPHILS 1.5 0.0 - 5.6 % 05/21/2024 4:31 PM CDT [facility] BASOPHILS 0.4 0.0 - 1.3 % 05/21/2024 4:31 PM CDT [facility] ABS. NEUTROPHILS 3.14 1.40 - 6.00 x10'3/uL 05/21/2024 4:31 PM CDT [facility] IMMATURE GRANS % 0.1 0.0 - 0.5 % 05/21/2024 4:31 PM CDT [facility] ABS. LYMPHOCYTES 3.41 0.80 - 4.70 x10'3/uL 05/21/2024 4:31 PM CDT [facility] 05/21/2024 3:29 PM CDT us Sam Gage MD LABORATORY Fi nal Result [facility] [address] [place] [address], documented in this encounter Visit Diagnoses Diagnosis Enteritis- Primary Other and unspecified noninfectious gastroenteritis and colitis Hypokalemia Hypopotassemia documented in this encounter Administered Medications Inactive Administered Medications - up to 3 most recent administrations Medication Order MAR Action Action Date Dose Rate Site cefTRIAXone (ROCEPHIN) 1 g in sterile water 10 mL IV 1 g, Intravenous, at 120 mL/hr, Once, 1 dose, On 05/21/24 at 1745, Administer over at least 5 minutes. Given 05/21/2024 6:02 PM CDT 1 g 120 mL/hr dicyclomine (BENTYL) intramuscular injection 20 mg 20 mg, Intramuscular, Once, 1 dose, On 05/21/24 at 1630, intramuscular (IM) only Do NOT administer intravenous Given 05/21/2024 4:35 PM CDT 20 mg Right Dorsal Gluteal HYDROmorphone (DILAUDID) injection 0.5 mg 0.5 mg, Intravenous, Once, 1 dose, On 05/21/24 at 1630, Administer slowly over at least 2-3 minutes. Given 05/21/2024 4:32 PM CDT 0.5 mg HYDROmorphone (DILAUDID) injection 0.5 mg 0.5 mg, Intravenous, Once, 1 dose, On 05/21/24 at 1730, Administer slowly over at least 2-3 minutes. Given 05/21/2024 5:35 PM CDT 0.5 mg iopamidol (ISOVUE-370) 76 % injection 75 mL 75 mL, Intravenous, IMG once as needed, Contrast, 1 dose, Starting on 05/21/24 at 1700, Until 05/21/24 at 1700 Given 05/21/2024 5:00 PM CDT 75 mLs metroNIDAZOLE (FLAGYL) IVPB 500 mg 500 mg, Intravenous, at 100 mL/hr, Once, 1 dose, On 05/21/24 at 1745 New Bag 05/21/2024 6:18 PM CDT 500 mg 100 mL/hr ondansetron (ZOFRAN) injection 4 mg 4 mg, Intravenous, Once, 1 dose, On 05/21/24 at 1630, IV push over 2-5 minutes. Given 05/21/2024 4:35 PM CDT 4 mg oxyCODONE-acetaminophen (PERCOCET) 5-325 MG tablet 1 tablet 1 tablet, Oral, Every 4 hours PRN, Severe pain (Scale 8 - 10), 3 doses, Starting on 05/21/24 at 1925, Until 05/21/24 at 2148, MEDICATION FOR TAKE HOME Given 05/21/2024 7:33 PM CDT 1 tablet potassium chloride CR (KLOR-CON M) tablet 40 mEq 40 mEq, Oral, Once, 1 dose, On 05/21/24 at 1800, Do not chew, crush, or suck on tablet. May break in half. May dissolve whole tablet in 120 mL of water and drink immediately. Given 05/21/2024 6:02 PM CDT 40 mEq documented in this encounter Active and Recently Administered Medications Times are shown in CDT. Scheduled Medication Order 05/19/2024 05/20/2024 05/21/2024 cefTRIAXone (ROCEPHIN) 1 g in sterile water 10 mL IV (COMPLETED) 1 g, Intravenous, at 120 mL/hr, Once, 1 dose, On 05/21/24 at 1745, Administer over at least 5 minutes. 180 (Given - Provid er: Darshana Ro RN) dicyclomine (BENTYL) intramuscular injection 20 mg (COMPLETED) 20 mg, Intramuscular, Once, 1 dose, On 05/21/24 at 1630, intramuscular (IM) only Do NOT administer intravenous 163 (Given - Provid er: Darshana Ro RN) HYDROmorphone (DILAUDID) injection 0.5 mg (COMPLETED) 0.5 mg, Intravenous, Once, 1 dose, On 05/21/24 at 1630, Administer slowly over at least 2-3 minutes. 163 (Given - Provid er: Darshana Ro RN) HYDROmorphone (DILAUDID) injection 0.5 mg (COMPLETED) 0.5 mg, Intravenous, Once, 1 dose, On 05/21/24 at 1730, Administer slowly over at least 2-3 minutes. 173 (Given - Provid er: Darshana Ro RN) metroNIDAZOLE (FLAGYL) IVPB 500 mg (COMPLETED) 500 mg, Intravenous, at 100 mL/hr, Once, 1 dose, On 05/21/24 at 1745 181 (New Bag - Prov ider: Darshana Ro RN)193 (Infusion Stop Time - Provider: Darshana Ro RN) ondansetron (ZOFRAN) injection 4 mg (COMPLETED) 4 mg, Intravenous, Once, 1 dose, On 05/21/24 at 1630, IV push over 2-5 minutes. 163 (Given - Provid er: Darshana Ro RN) potassium chloride CR (KLOR-CON M) tablet 40 mEq (COMPLETED) 40 mEq, Oral, Once, 1 dose, On 05/21/24 at 1800, Do not chew, crush, or suck on tablet. May break in half. May dissolve whole tablet in 120 mL of water and drink immediately. 1802 (Given - Provid er: Darshana Ro, JOSSUE) PRN Medication Order 05/19/2024 05/20/2024 05/21/2024 iopamidol (ISOVUE-370) 76 % injection 75 mL (COMPLETED) 75 mL, Intravenous, IMG once as needed, Contrast, 1 dose, Starting on 05/21/24 at 1700, Until 05/21/24 at 1700 1700 (Given - Provid er: Efe Burk, RTR) oxyCODONE-acetaminophen (PERCOCET) 5-325 MG tablet 1 tablet 1 tablet, Oral, Every 4 hours PRN, Severe pain (Scale 8 - 10), 3 doses, Starting on 05/21/24 at 1925, Until 05/21/24 at 2148, MEDICATION FOR TAKE HOME 1933 (Given - Provid er: Darshana Ro, RN) documented in this encounter Additional Health Concerns Assessment Noted Time PHQ-9 Depression Total Score: 0 04/03/20 10:56 AM CDT documented as of this encounter Care Teams Discharge Rn Relationship Specialty [place] [address] [facility]. [address] [place] [address] PCP - General FAMILY PRACTICE 03/01/23 Perez Cervantes MD [address] [place] [phone] RHEUMATOLOGY 09/02/23 Adriana Ma MD [address] [place] [address] Referring Physician ALLERGY 09/02/23 documented as of this encounter
--- OUTSIDE RECORDS SUMMARY | 2024-11-13 17:12 | XMS_ITS | Encounter Summary ---
Author Organization [facility] Address [address] [place] [address]. [place], [place] [address] [place] [address] Care Team Providers Care Charging Machine Operator Name Role Phone Jaspreet Madsen MD Primary Care Provider U juan carlos Reason for Visit * Reason Comments Headache Pt states she has lee d a headache and stiffness since Wednesday and and jaw pain today. Encounter Details Date Type Department Care Team (Late st Contact Info) Description 07/06/2022 3:40 PM CDT Office Visit [facility] Family & Internal Medicine [address] [phone] Jaspreet Madsen MD Headache (Pt states she has had a headache and stiffness since Wednesday and and jaw pain today. ) Social History Tobacco Use Types Packs/Day Years Used Date Smoking Tobacco: Former Cigarettes 0.3 10 1 980 - 1989 Smokeless Tobacco: Never Tobacco Cessation:Counseling Given: No [...] on file 11/15 PHQ-2 Answer Date Recorded PHQ-2 Score - If the patient scores above 3, please move on to questions 3-9 0 05/27/2022 Education Answer Date Recorded What is the highest level of school you have completed or the highest degree you have received? Master's degree (e.g., MA, MS, Howard, MEd, GLASS NOVELTY MAKER, KEKE) 12/21/2018 Comments No Sex and Gender [...] suspected to have Coronavirus/COVID-19? No / Unsure 07/06/2022 3:33 PM CDT documented as of this encounter Last Filed Vital Signs Vital Sign Reading Time Taken Comments Blood Pressure 164/80 07/06/2022 3:50 PM CDT Pulse 69 07/06/2022 3:41 PM CDT Temperature 37.3 ??C (99.1 ??F) 07/06/2022 3:41 PM CD T Respiratory Rate 18 07/06/2022 3:41 PM CDT Oxygen Saturation 97% 07/06/2022 3:41 PM CDT Inhaled Oxygen Concentration - - Weight 80.3 kg (177 lb) 07/06/2022 3:41 PM CDT Height 172.7 cm (5' 8 ) 07/06/2022 3:41 PM CDT Body Mass Index 26.91 07/06/2022 3:41 PM CDT documented in this encounter Progress Notes * Jaspreet Madsen MD - 07/06/2022 3:40 PM CDT Reason for Visit: Headache (Pt states she has had a headache and stiffness since Wednesday and and jaw pain today. ) Filed Vitals: 07/06/22 1541 07/06/22 1550 BP: 107/66 (!) 164/80 Pulse: 69 Resp: 18 Temp: 99.1 ??F (37.3 ??C) TempSrc: Temporal SpO2: 97% Weight: 80.3 kg (177 lb) Height: 5' 8 (1.727 m) Body mass index is 26.91 kg/m??. History of Present Illness: HPI good afternoon office visit with Mrs. 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 In any case she does have a lot of tension in her neck ROS: Review of Systems Constitutional: Negative. Respiratory: Negative. Cardiovascular: Negative. Gastrointestinal: Negative. Genitourinary: Negative. Musculoskeletal: Positive for back pain and neck pain. Psychiatric/Behavioral: The patient is nervous/anxious. Medications: Current Outpatient Medications: ??? Ascorbic Acid (VITAMIN C) 100 MG tablet, Take 100 mg by mouth daily., Disp: , Rfl: ??? azelastine 0.1 % nasal spray, 2 sprays by Nasal route., Disp: , Rfl: ??? BUSPIRONE 15 MG tablet, TAKE 1 TABLET BY MOUTH TWICE A DAY, Disp: 180 tablet, Rfl: 0 ??? citalopram 10 MG tablet, Take 1 tablet (10 mg total) by mouth daily., Disp: 90 tablet, Rfl: 1 ??? IBX-TED-Mfsvnvh E 192-251-11 MG-MG-UNIT Cap, Take 1 capsule by mouth daily., Disp: , Rfl: ??? Estradiol 10 MCG vaginal tablet, , Disp: , Rfl: ??? etanercept 50 MG/ML injection, Inject 50 mg into the skin weekly. , Disp: , Rfl: ??? fexofenadine 180 MG tablet, Take 180 mg by mouth., Disp: , Rfl: ??? folic acid 1 MG tablet, Take 1 tablet by mouth daily., Disp: , Rfl: ??? gabapentin (NEURONTIN) 100 MG capsule, , Disp: , Rfl: ??? methotrexate 2.5 MG tablet, TAKE 8 TABLETS EVERY 7 DAYS, Disp: , Rfl: ??? montelukast 10 MG tablet, Take 1 tablet (10 mg total) by mouth daily., Disp: 90 tablet, Rfl: 1 ??? multivitamin tablet, Take 2 tablets by mouth daily., Disp: , Rfl: ??? nabumetone 500 MG tablet, Take 1,000 mg by mouth 2 (two) times daily., Disp: , Rfl: ??? polyethylene glycol packet, Take 1 packet by mouth daily as needed., Disp: , Rfl: ??? tiZANidine (ZANAFLEX) 4 MG tablet, Take 1 tablet (4 mg total) by mouth every 6 (six) hours as needed., Disp: 15 tablet, Rfl: 0 ??? valACYclovir 1 g tablet, as needed. , Disp: , Rfl: ??? albuterol sulfate HFA 108 (90 Base) MCG/ACT inhaler, , Disp: , Rfl: ??? ALPRAZolam 0.25 MG tablet, Take 1 tablet (0.25 mg total) by mouth nightly as needed for Sleep.,Disp: 30 tablet, Rfl: 0 ??? dicyclomine 20 MG tablet, Take 1 tablet (20 mg total) by mouth every 6 (six) hours. (Patient taking differently: Take 20 mg by mouth every 6 (six) hours as needed.), Disp: 120 tablet, Rfl: 0 Allergies Allergen Reactions ??? Levofloxacin Nausea and Vomiting, Nausea Only, Hallucinations and Other (see comment) hallucinations Other reaction(s): Other hallucinations Past Medical History: Diagnosis Date ??? Anxiety ??? Heart murmur ??? IBS (irritable bowel syndrome) ??? Inflammatory arthritis ??? RA (rheumatoid arthritis) (CMS/HCC) ??? Wears glasses Past Surgical History: Procedure Laterality Date ??? CHOLECYSTECTOMY ??? COLONOSCOPY AH 9 yrs. ??? COLONOSCOPY N/A 03/17/2021 COLONOSCOPY-NORMAL performed by Niall Matute MD at [facility] ??? LAMINECTOMY,LUMBAR ??? SEPTOPLASTY Social History Socioeconomic History ??? Marital status: Spouse name: Cl ??? Number of children: 4 ??? Highest education level: Master's degree (e.g., MA, MS, Howard, MEd, GLASS NOVELTY MAKER, KEKE) Occupational History ??? 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 Smoking status: Former Smoker Packs/day: 0.25 Years: 10.00 Pack years: 2.50 Types: Cigarettes Quit date: 1989 Years since quittin.6 ??? Smokeless tobacco: Never Used ??? Tobacco comment: off and on for 10 years from 84-94 with long periods of none at all Vaping Use ??? Vaping Use: Never used Substance and Sexual Activity ??? Alcohol use: No ??? Drug use: No Other Topics Concern ??? Service No ??? Blood Transfusions No ??? Caffeine Concern Yes Comment: coffee, tea ??? Occupational Exposure No ??? Hobby Hazards No ??? Sleep Concern Yes Comment: hard time falling asleep and getting asleep ??? Stress Concern Yes ??? Weight Concern No ??? Special Diet No ??? Back Care No ??? Exercise Yes ??? Bike Helmet No ??? Seat Belt Yes ??? Self-Exams No ??? Wheelchair No ??? Walker No ??? Upper extremity braces/slings No ??? Lower extermity braces/slings No ??? Self Care Yes Social History Narrative Lives at home with husb and dog. Family History Problem Relation Name Age of Onset ??? COPD Mother ??? Other (mva) Father Family Status Relation Name Status ??? Mother Alive ??? Father Physical Exam Constitutional: Appearance: Normal appearance. Cardiovascular: Rate and Rhythm: Normal rate and regular rhythm. Pulses: Normal pulses. Heart sounds: Normal heart sounds. Pulmonary: Effort: Pulmonary effort is normal. Breath sounds: Normal breath sounds. Musculoskeletal: General: Normal range of motion. Cervical back: Rigidity and tenderness present. Comments: There is a great deal of tenderness and muscle tension in her neck especially there left side with tender muscles rigidity or stiffness Skin: General: Skin is warm and dry. Neurological: General: No focal deficit present. Mental Status: She is alert and oriented to person, place, and time. Psychiatric: Mood and Affect: Mood normal. Behavior: Behavior normal. Thought Content: Thought content normal. Judgment: Judgment normal. Assessment Encounter Diagnose(s) ICD-10-CM ICD-9-CM SNOMED CT(R) 1. Neck pain M54.2 723.1 NECK PAIN tiZANidine (ZANAFLEX) 4 MG tablet 2. DURAN (generalized anxiety disorder) F41.1 300.02 GENERALIZED ANXIETY DISORDER Plan at this time recommend a muscle relaxer and heating pad however a chiropractor treatment couldbe also be very beneficial so I recommend that she could do that to she does have some jaw pain in the left side but she has a great deal of motion when she open and close her mouth with a lot of lateral motion suggesting some type of problem or issues with the temporomandibular joint Orders Placed This Encounter ??? DISCONTD: Gabapentin 10 % Cream ??? gabapentin (NEURONTIN) 100 MG capsule ??? DISCONTD: [id number] otic solution ??? tiZANidine (ZANAFLEX) 4 MG tablet Follow up FU PRN JASPREET MADSEN MD 07/06/2022 5:22 PM documented in this encounter Plan of Treatment Upcoming Encounters Date Type Department Care Team (Late st Contact Info) Description 11/14/2024 8:00 AM SPORTS DIRECTOR Office Visit [facility] Multispecialty Care - [facility] 3 [facility], [address] [place] [phone] Montserrat Oliver NP 3 [facility] [address] [place] [address] 12/06/2024 9:30 AM SPORTS DIRECTOR Appointment [facility] Open MRI [address] [place] [address] [place] [address] [facility]. [address] [place] [phone] 03/02/2025 3:20 PM CDT Office Visit [facility] Family & Internal Medicine - [address] [phone] [place] [address] [facility] [address] [place] [address] documented as of this encounter Visit Diagnoses Diagnosis Neck pain- Primary Cervicalgia DURAN (generalized anxiety disorder) Generalized anxiety disorder documented in this encounter Additional Health Concerns Assessment Noted Time PHQ-9 Depression Total Score: 2 05/27/20 22 11:36 AM CDT documented as of this encounter Care Teams Charging Machine Operator Relationship Specialty Start Date End Date Jaspreet Madsen MD PCP - General INTERNAL MEDICINE 11/30/18 02/18/23 documented as of this encounter
--- OUTSIDE RECORDS SUMMARY | 2024-11-13 17:12 | XMS_ITS | Encounter Summary ---
Author Organization [facility] Address [address] [place] [address]. [place] [address] [place] [address] Care Team Providers Care Outdoor Education Teacher Name Role Phone Jaspreet Pearl MD Primary Care Provider Felipe rangel Encounter Details Date Type Department Care Team (Latest Contact Info) Description 03/12/2021 Travel Social History Tobacco Use Types Packs/Day Years Used Date Smoking Tobacco: Former Cigarettes 0.3 4 1 6 1989 Smokeless Tobacco: Never Comments:socially Alcohol Use Standard Drinks/Week Comments No 0 (1 standard drink = 0.6 oz pur e alcohol) AUDIT-C Answer Date Recorded Frequency of Alcohol Consumption Never 11/30/2018 Average Number of Drinks Not on file 019 Frequency of Binge Drinking Not on file 11/15 PHQ-2 Answer Date Recorded PHQ-2 Score 0 01/10/2020 Education Answer Date Recorded What is the highest level of school you have completed or the highest degree you have received? Master's degree (e.g., MA, MS, Howard, MEd, PATIENT CARE REPRESENTATIVE, KEKE) 12/21/2018 Comments No Sex and Gender [...] have Coronavirus / COVID-19? No / Unsure 03/12/2021 11:31 AM CDT documented as of this encounter Plan of Treatment Upcoming Encounters Date Type Department Care Team (Late Contact Info) Description 11/14/2024 8:00 AM PRESS OPERATOR MEAT Office Visit [facility] Multispecialty Care - [facility] 3 [facility], [address] [place] [address] Montserrat Oliver NP 3 [facility] [address] [place] [address] 12/06/2024 9:30 AM PRESS OPERATOR MEAT Appointment [facility] Open MRI [address] [place] [address] [place] [address] [facility] [address] [place] [address] 03/02/2025 3:20 PM CDT Office Visit [facility] Family & Internal Medicine - [address] [phone] [place] [address] [facility]. [address] [place] [address] documented as of this encounter Visit Diagnoses Not on filedocumented in this encounter Additional Health Concerns Assessment Noted Time PHQ-9 Depression Total Score: 4 05/01/20 19 3:05 PM CDT documented as of this encounter Care Teams Outdoor Education Teacher Relationship Specialty Start Date End Date Jaspreet Pearl MD PCP - General INTERNAL MEDICINE 11/30/18 02/18/23 documented as of this encounter
--- OUTSIDE RECORDS SUMMARY | 2024-11-13 17:12 | XMS_ITS | Encounter Summary ---
Author Organization [facility] Address [address] [place] [address]. [place] [address] [place] [address] Care Team Providers Care Field Crop Ii Farmworker Name Role Phone Jaspreet Pearl MD Primary Care Provider Felipe rangel Encounter Details Date Type Department Care Team (Latest Contact Info) Description 12/29/2022 12:33 PM DRY HEAT ROOM ATTENDANT - 12/29/2022 11:59 PM [facility] Hospital Encounter [facility] [address] [place] [address] Allyson Arzola, OVERSEAMER [address] [address] [place], [place] [phone] Discharge Disposition: Home or Self Care (Routine [...] Master's degree (e.g., MA, MS, Howard, MEd, LEAD TECHNICAL WRITER, KEKE) 12/21/2018 Comments No Sex and Gender [...] suspected to have Coronavirus/COVID-19? No / Unsure 12/29/2022 7:12 AM DRY HEAT ROOM ATTENDANT documented as of this encounter Medications at Time of Discharge etanercept 50 MG/ML injection Inject 1 mL (50 mg total) into the skin weekly. 05/30/2014 methotrexate 2.5 MG tablet Take by mouth once a week. Take 6 tablets every 7 days. 06/06/2018 valACYclovir 1 g tablet as needed. 10/10/2019 albuterol sulfate HFA 108 (90 Base) MCG/ACT inhaler 05/26/2022 3 ALPRAZolam 0.25 MG tabletIndications: DURAN (generalized anxiety disorder) Take 1 tablet (0.25 mg total) by mouth nightly as needed for Sleep. 30 tablet 04/06/2022 3 amoxicillin (AMOXIL) 875 MG tabletIndications: Sore throat,Exposure to strep throat Take 1 tablet (875 mg total) by mouth 2 (two) times daily for 10 days. 20 tablet 12/29/2022 3 Ascorbic Acid (VITAMIN C) 100 MG tablet Take 1 tablet (100 mg total) by mouth daily. 4 azelastine 0.1 % nasal spray 2 sprays by Nasal route. 3 BUSPIRONE 15 MG tabletIndications: DURAN (generalized anxiety disorder) TAKE 1 TABLET BY MOUTH TWICE A DAY 180 tablet 05/25/2022 3 citalopram 10 MG tabletIndications: DURAN (generalized anxiety disorder) Take 1 tablet (10 mg total) by mouth daily. 90 tablet 1 05/27/2022 3 DSW-XDQ-Ctgppig E 192-251-11 MG-MG-UNIT Cap Take 1 capsule by mouth daily. 03/17/202 3 dicyclomine (BENTYL) 20 MG tabletIndications: Irritable bowel syndrome with both constipation and diarrhea Take 1 tablet (20 mg total) by mouth every 6 (six) hours as needed. 120 tablet 09/07/2022 3 Estradiol 10 MCG vaginal tablet 03/30/2022 3 fexofenadine 180 MG tablet Take 1 tablet (180 mg total) by mouth. 3 folic acid 1 MG tablet Take 1 tablet (1 mg total) by mouth daily. 06/01/2014 3 montelukast 10 MG tabletIndications: Seasonal allergies Take 1 tablet (10 mg total) by mouth daily. 90 tablet 1 05/27/2022 3 multivitamin tablet Take 2 tablets by mouth daily. 4 nabumetone 500 MG tablet Take 2 tablets (1,000 mg total) by mouth 2 (two) times daily. 11/24/2021 4 polyethylene glycol packet Take 240 mLs (1 packet total) by mouth daily as needed. 4 predniSONE (DELTASONE) 20 MG tabletIndications: Sore throat,Acute viral syndrome Take 2 tablets (40 mg total) by mouth every morning for 5 days. 10 tablet 12/29/2022 3 documented as of this encounter Progress Notes * Allyson Arzola APRN - 12/29/2022 12:33 PM CST NO STREPTOCOCCUS PYOGENES (GROUP A) ISOLATED. Patient may discontinue antibiotics and return to clinic with new or worsening symptoms. HEAT ROOM ATTENDANT documented in this encounter Plan of Treatment Upcoming Encounters Date Type Department Care Team (Late st Contact Info) Description 11/14/2024 8:00 AM DRY HEAT ROOM ATTENDANT Office Visit [facility] Multispecialty Care - [facility] 3 [facility], [address] [place] [phone] Montserrat Oliver NP 3 [facility] [address] [place] [address] 12/06/2024 9:30 AM DRY HEAT ROOM ATTENDANT Appointment [facility] Open MRI [address] [place] [address] [place] [address] [place] [address] 03/02/2025 3:20 PM CDT Office Visit [facility] Family & Internal Medicine - [place] [address] [place] [address] [place] [address] [facility] [address] [place] [address] documented as of this encounter Procedures Procedure Name Priority Date/Time Associated Diagnosis Comments CULTURE STREP A Routine 12/29/2022 7:59 AM DRY HEAT ROOM ATTENDANT Sore throat documented in this encounter Results * CULTURE STREP A (12/29/2022 7:59 AM DRY HEAT ROOM ATTENDANT) SPEC DESCRIPTION THROAT 12/29/2022 12:33 PM DRY HEAT ROOM ATTENDANT [facility] SPECIAL REQUESTS NO SPECIAL REQUEST 12/29/2022 12:33 PM DRY HEAT ROOM ATTENDANT [facility] CULTURE RESULT NO STREPTOCOCCUS PYOGENES (GROUP A) ISOLATED 12/31/2022 8:03 AM DRY HEAT ROOM ATTENDANT [facility] THROAT SWAB / Unknown 12/29/2022 7:59 AM DRY HEAT ROOM ATTENDANT 12/29/2022 12:46 PM DRY HEAT ROOM ATTENDANT us Allyson Arzola APRN MICROBIOLOGY - GENERAL ORD ERABLES Final Result [facility] [address] [place] [address], [place] [phone] [facility] [address] [place] [address], [place] [phone] documented in this encounter Visit Diagnoses Diagnosis Sore throat Acute pharyngitis documented in this encounter Additional Health Concerns Assessment Noted Time PHQ-9 Depression Total Score: 2 05/27/20 22 11:36 AM CDT documented as of this encounter Care Teams Field Crop Ii Farmworker Relationship Specialty Start Date End Date Jaspreet Pearl MD PCP - General INTERNAL MEDICINE 11/30/18 02/18/23 documented as of this encounter
--- OUTSIDE RECORDS SUMMARY | 2024-11-13 17:12 | XMS_ITS | Encounter Summary ---
Author Organization [facility] Address [address] [place] [address]. [place] [address] [place] [address] Care Team Providers Care Connie Scratcher Name Role Phone Jaspreet Pearl MD Primary Care Provider U navailable Reason for Referral * Surgical (Routine) - Closed Specialty Diagnoses / Procedures Referred By Chalino bazan Referred To Contact Diagnoses Pharyngoesophageal dysphagia Encounter for screening colonoscopy Procedures Case request operating room: COLONOSCOPY, EGD Niall Matute MD [address] [place] [address] [place] [address] Phone: tel: fax: Referral ID Status Reason Start Date Expiration Date Visits Re quested Visits Authorized [id number] Closed 02/06/2021 03/09/2022 1 1 Encounter Details Date Type Department Care Team (Late st Contact Info) Description 02/06/[address] [facility] Multispecialty Care - [address] [place] [address] Niall Matute MD [address] [place] [address] [address] [place] [address] Social History Tobacco Use Types Packs/Day Years Used Date Smoking Tobacco: Former Cigarettes 0.3 4 1 6 - 1989 Smokeless Tobacco: Never Comments:socially Alcohol Use [...] Master's degree (e.g., MA, MS, Howard, MEd, PHILOSOPHY AND RELIGION INSTRUCTOR, KEKE) 12/21/2018 Comments No Sex and Gender [...] have Coronavirus / COVID-19? No / Unsure 01/31/2021 12:42 PM CDT documented as of this encounter Plan of Treatment Upcoming Encounters Date Type Department Care Team (Late st Contact Info) Description 11/14/2024 8:00 AM DISTRIBUTING CLERK Office Visit [facility] Multispecialty Care - [facility] 3 [facility], [address] [place] [phone] Montserrat Oliver NP 3 [facility] [address] [place] [address] 12/06/2024 9:30 AM DISTRIBUTING CLERK Appointment [facility] Open MRI [address] [place] [address] [place] [address] [facility] [address] [place] [address] 03/02/2025 3:20 PM CDT Office Visit [facility] Family & Internal Medicine - [address] [place] [address] [place] [address] [facility]. [address] [place] [address] Scheduled Orders Name Type Priority Associated Diagnoses Orde r Schedule Case request operating room: COLONOSCOPY, EGD Case Request Routine Pharyngoesophageal dysphagia Encounter for screening colonoscopy Ordered: 02/06/2021 documented as of this encounter Visit Diagnoses Diagnosis Pharyngoesophageal dysphagia- Primary Dysphagia, pharyngoesophageal phase Encounter for screening colonoscopy Special screening for malignant neoplasms, colon documented in this encounter Additional Health Concerns Assessment Noted Time PHQ-9 Depression Total Score: 4 05/01/20 19 3:05 PM CDT documented as of this encounter Care Teams Connie Scratcher Relationship Specialty Start Date End Date Jaspreet Pearl MD PCP - General INTERNAL MEDICINE 11/30/18 02/18/23 documented as of this encounter
--- OUTSIDE RECORDS SUMMARY | 2024-11-13 17:12 | XMS_ITS | Encounter Summary ---
Author Organization [facility] Address [address] [place] [address]. [place] [address] [place] [address] Care Team Providers Care Commercial Artist Lettering Name Role Phone Jaspreet Pearl MD Primary Care Provider Felipe waydylan Encounter Details Date Type Department Care Team (Latest Contact Info) Description 06/23/2021 Travel Social History Tobacco Use Types Packs/Day Years Used Date Smoking Tobacco: Former Cigarettes 0.3 10 1 980 - 1989 Smokeless Tobacco: Never Comments:off and on for [...] please move on to questions 3-9 0 05/02/2021 Education Answer Date Recorded What is the highest level of school you have completed or the highest degree you have received? Master's degree (e.g., MA, MS, Howard, MEd, VISUAL MERCHANDISING DIRECTOR, KEKE) 12/21/2018 Comments No Sex and [...] have Coronavirus / COVID-19? No / Unsure 06/23/2021 7:55 AM CDT documented as of this encounter Plan of Treatment Upcoming Encounters Date Type Department Care Team (Late st Contact Info) Description 11/14/2024 8:00 AM TRIMMER SORTER Office Visit [facility] Multispecialty Care - [facility] 3 [facility], [address] [place] [address] Montserrat Oliver NP 3 [facility] [address] [place] [address] 12/06/2024 9:30 AM TRIMMER SORTER Appointment [facility] Open MRI [address] [place] [address] [place] [address] [facility]. [address] [place] [address] 03/02/2025 3:20 PM CDT Office Visit [facility] Family & Internal Medicine - [address] [address] [place] [address] [facility]. [address] [place] [address] documented as of this encounter Visit Diagnoses Not on filedocumented in this encounter Additional Health Concerns Assessment Noted Time PHQ-9 Depression Total Score: 0 05/02/20 21 2:11 PM CDT documented as of this encounter Care Teams Commercial Artist Lettering Relationship Specialty Start Date End Date Jaspreet Pearl MD PCP - General INTERNAL MEDICINE 11/30/18 02/18/23 documented as of this encounter
--- OUTSIDE RECORDS SUMMARY | 2024-11-13 17:12 | XMS_ITS | Encounter Summary ---
Author Organization [facility] Address [address] [place] [address]. [place] [address] [place] [address] Care Team Providers Care Drum Builder Name Role Phone Jaspreet Pearl MD Primary Care Provider Felipe waydylan Encounter Details Date Type Department Care Team (Latest Contact Info) Description 03/18/2021 Hyginex Message Enc [facility] [address] [address] Ana Colbert, DOREEN [address] [address] RE: Test Results Social History Tobacco Use Types Packs/Day Years Used Date Smoking Tobacco: Former Cigarettes 0.3 4 1 986 - 1990 Smokeless Tobacco: Never Comments:socially Alcohol Use Standard [...] Master's degree (e.g., MA, MS, Howard, MEd, RESOURCE ECONOMIST, KEKE) 12/21/2018 Comments No Sex and Gender [...] have Coronavirus / COVID-19? No / Unsure 03/17/2021 8:20 AM CDT documented as of this encounter Progress Notes * Carly Bunch - 03/18/2021 2:53 PM CDTFrom: [facility] To: Ana Colbert Sent: 03/18/2021 11:13 AM CDT Subject: Test Results Dr. Colbert, Dr. Matute told my my colonoscopy and endoscopy were clear! So I didn't see the need to come in on the like you and I had discussed. I did have a quick question....did I have hemorroids? LOL. I think I sometimes do but didn't think to ask him yesterday. Thank you for all your help! documented in this encounter Plan of Treatment Upcoming Encounters Date Type Department Care Team (Late st Contact Info) Description 11/14/2024 8:00 AM HAND RUG CLEANER Office Visit [facility] Multispecialty Care - [facility] 3 [facility], [address] [place] [phone] Montserrat Oliver NP 3 [facility] [address] [place] [address] 12/06/2024 9:30 AM HAND RUG CLEANER Appointment [facility] Open MRI [address] [place] [address] [place] [address] [facility]. [address] [place] [address] 03/02/2025 3:20 PM CDT Office Visit [facility] Family & Internal Medicine - [address] [address] [place] [address] [place] [address] documented as of this encounter Visit Diagnoses Not on filedocumented in this encounter Additional Health Concerns Assessment Noted Time PHQ-9 Depression Total Score: 4 05/01/20 19 3:05 PM CDT documented as of this encounter Care Teams Drum Builder Relationship Specialty Start Date End Date Jaspreet Pearl MD PCP - General INTERNAL MEDICINE 11/30/18 02/18/23 documented as of this encounter
--- OUTSIDE RECORDS SUMMARY | 2024-11-13 17:12 | XMS_ITS | Encounter Summary ---
Author Organization [facility] Address [address] [place] [address]. [place] [address] [place] [address] Care Team Providers Care Cemetery Laborer Name Role Phone Jaspreet Pearl MD Primary Care Provider Felipe rangel Encounter Details Date Type Department Care Team (Latest Contact Info) Description 01/29/2023 Travel Social History Tobacco Use Types Packs/Day [...] Master's degree (e.g., MA, MS, Howard, MEd, INFORMATION AND DATA ARCHITECT ANALYST, KEKE) 12/21/2018 Comments No Sex and [...] suspected to have Coronavirus/COVID-19? No / Unsure 01/29/2023 8:26 AM CDT documented as of this encounter Plan of Treatment Upcoming Encounters Date Type Department Care Team (Late st Contact Info) Description 11/14/2024 8:00 AM FLOOR LAYER Office Visit [facility] Multispecialty Care - [facility] 3 [facility], [address] [place] [address] Montserrat Oliver NP 3 [facility] [address] [place] [address] 12/06/2024 9:30 AM FLOOR LAYER Appointment [facility] Open MRI [address] [place] [address] [place] [address] [facility]. [address] [place] [phone] 03/02/2025 3:20 PM CDT Office Visit [facility] Family & Internal Medicine - [address] [address] [place] [address] [facility]. [address] [place] [address] documented as of this encounter Visit Diagnoses Not on filedocumented in this encounter Additional Health Concerns Assessment Noted Time PHQ-9 Depression Total Score: 2 05/27/20 22 11:36 AM CDT documented as of this encounter Care Teams Cemetery Laborer Relationship Specialty Start Date End Date Jaspreet Pearl MD PCP - General INTERNAL MEDICINE 11/30/18 02/18/23 documented as of this encounter
--- OUTSIDE RECORDS SUMMARY | 2024-11-13 17:12 | XMS_ITS | Encounter Summary ---
Author Organization [facility] Address [address] [place] [address]. [place], [place] [address] [place] [address] Care Team Providers Care Office Mover Name Role Phone Jaspreet Pearl MD Primary Care Provider U Kelsey Dey NP Primary Care Provider [phone] Dayanara Plaza MD Primary Care Provider [phone] Perez Cervantes MD Unavailable Adriana Ma MD Unavailable [phone] Encounter Details Date Type Department Care Team (Late st Contact Info) Description 03/08/2022 AirMediat Message Enc [facility] Family & Internal Medicine [address] [address] Jaspreet Pearl MD Refill question Social History Tobacco Use Types Packs/Day Years [...] Master's degree (e.g., MA, MS, Howard, MEd, WASHING MACHINE OPERATOR, KEKE) 12/21/2018 Comments No Sex [...] st Contact Info) Description 11/14/2024 8:00 AM MESSAGE BROKER DEVELOPER Office Visit [facility] Multispecialty Care - [address], [address] [place] [phone] Montserrat Oliver NP [address] [place] [address] [place] [address] 12/06/2024 9:30 AM MESSAGE BROKER DEVELOPER Appointment [facility] Open MRI [address] [place] [address] [place] [address] [facility]. [address] [place] [phone] 03/02/2025 3:20 PM CDT Office Visit [facility] Family & Internal Medicine - [address] [address] [place] [address] [address] [place] [phone] documented as of this encounter Visit Diagnoses Not on filedocumented in this encounter Additional Health Concerns Infection Onset Date Last Indicated Resolved Time COVID-19 Rule Out 04/03/2024 04/03/2024 04/03/2024 11:38 AM CDT Assessment Noted Time PHQ-9 Depression Total Score: 0 05/02/20 21 2:11 PM CDT documented as of this encounter Care Teams Office Mover Relationship Specialty Start Date End Date Jaspreet Pearl MD PCP - General INTERNAL MEDICINE 11/30/18 02/18/23 Kelsey Kc, DOREEN [address] [address] [place] [address] PCP - General Nurse Practitioner Family 02/19/23 02/28/23 [place] [address] [address] [place] [address] PCP - General FAMILY PRACTICE 03/01/23 Perez Cervantes MD [address] [address] RHEUMATOLOGY 09/02/23 Adriana Ma MD 325 [place], [place] [address] Referring Physician ALLERGY 09/02/23 documented as of this encounter
--- OUTSIDE RECORDS SUMMARY | 2024-11-13 17:12 | XMS_ITS | Encounter Summary ---
Author Organization [facility] Address [address] [place] [address]. [place], [place] [address] [place] [address] Care Team Providers Care Tile Layer Drainage Name Role Phone Jaspreet Pearl MD Primary Care Provider Felipe juan carlos Encounter Details Date Type Department Care Team (Late st Contact Info) Description 04/06/2022 Medication Management [facility] Family & Internal Medicine [address] [address] Jaspreet Pearl MD Social History Tobacco Use Types Packs/Day Years Used Date Smoking Tobacco: Former Cigarettes 0.3 10 1 980 - 1990 Smokeless Tobacco: Never Comments:off and on for [...] Master's degree (e.g., MA, MS, Howard, MEd, WAGON DRILL OPERATOR, KEKE) 12/21/2018 Comments No Sex and [...] st Contact Info) Description 11/14/2024 8:00 AM ACCOUNT PROCESSOR Office Visit [facility] Multispecialty Care - [facility] 3 [facility], [address] [place] [address] Montserrat Oliver NP 3 [facility] [address] [place] [address] 12/06/2024 9:30 AM ACCOUNT PROCESSOR Appointment [facility] Open MRI [address] [place] [address] [place] [address] [facility]. [address] [place] [address] 03/02/2025 3:20 PM CDT Office Visit [facility] Family & Internal Medicine - [address] [phone] [place] [address] [facility]. [address] [place] [address] documented as of this encounter Visit Diagnoses Diagnosis Fever, unspecified fever cause- Primary DURAN (generalized anxiety disorder) Generalized anxiety disorder documented in this encounter Additional Health Concerns Assessment Noted Time PHQ-9 Depression Total Score: 0 05/02/20 21 2:11 PM CDT documented as of this encounter Care Teams Tile Layer Drainage Relationship Specialty Start Date End Date Jaspreet Pearl MD PCP - General INTERNAL MEDICINE 11/30/18 02/18/23 documented as of this encounter
--- OUTSIDE RECORDS SUMMARY | 2024-11-13 17:12 | XMS_ITS | Encounter Summary ---
Author Organization [facility] Address [address] [place] [address]. [place], [place] [address] [place] [address] Care Team Providers Care Chemist Water Purification Name Role Phone Jaspreet Pearl MD Primary Care Provider U Kelsey Dey NP Primary Care Provider [phone] Dayanara Plaza MD Primary Care Provider [phone] Perez Cervantes MD Unavailable Adriana Ma MD Unavailable [phone] Encounter Details Date Type Department Care Team (Late st Contact Info) Description 07/30/2022 H2Sonicst Message Enc [facility] Family & Internal Medicine [address] [address] Jaspreet Pearl MD Still sick Social History Tobacco Use Types Packs/Day Years [...] degree (e.g., MA, MS, Howard, MEd, FORESTRY PATROLMAN, KEKE) 12/21/2018 Comments No Sex and Gender Information Value Date Recorded Sex Assigned at Not on file Legal Sex Female 8:16 PM CDT Gender Identity Not on file Sexual Orientation Not on file 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 No / Unsure 07/28/2022 8:11 AM CDT documented as of this encounter Progress Notes * RAJENDRA Abreu - 07/30/2022 2:46 PM CDT Please order a medrol dose pack and some tessalon pearls for her cough. Thank you. * Barb Vital RN - 07/30/2022 2:28 PM CDT Please advise. documented in this encounter Plan of Treatment Upcoming Encounters Date Type Department Care Team (Late st Contact Info) Description 11/14/2024 8:00 AM COLD ROLL PACKER SHEET IRON Office Visit [facility] Multispecialty Care - [facility] 3 [facility], [address] [place] [phone] Montserrat Oliver NP 3 [facility] [address] [place] [phone] 12/06/2024 9:30 AM COLD ROLL PACKER SHEET IRON [facility]ment [facility] Open MRI [address] [place] [address] [place] [address] [place] [address] 03/02/2025 3:20 PM CDT Office Visit [facility] Family & Internal Medicine - [place] [address] [place] [phone] [place] [address] [place] [address] documented as of this encounter Visit Diagnoses Not on filedocumented in this encounter Additional Health Concerns Infection Onset Date Last Indicated Resolved Time COVID-19 Rule Out 04/03/2024 04/03/2024 04/03/2024 11:38 AM CDT Assessment Noted Time PHQ-9 Depression Total Score: 2 05/27/20 22 11:36 AM CDT documented as of this encounter Care Teams Chemist Water Purification Relationship Specialty Start Date End Date Jaspreet Pearl MD PCP - General INTERNAL MEDICINE 11/30/18 02/18/23 [place] [address] [address] [place] [address] PCP - General Nurse Practitioner Family 02/19/23 02/28/23 [place] [address] [place] [address] PCP - General FAMILY PRACTICE 03/01/23 Perez Cervantes MD [facility] [place] [address] RHEUMATOLOGY 09/02/23 Adriana Ma MD [address] [place] [address] Referring Physician ALLERGY 09/02/23 documented as of this encounter
--- OUTSIDE RECORDS SUMMARY | 2024-11-13 17:12 | XMS_ITS | Encounter Summary ---
Author Organization [facility] Address [address] [place] [address]. [place] [address] [place] [address] Care Team Providers Care Pharmacists Name Role Phone Jaspreet Pearl MD Primary Care Provider U navailable Reason for Visit * Auth/Cert Specialty Diagnoses / Procedures Referred By Contac t Referred To Contact Diagnoses Pharyngoesophageal dysphagia Encounter for screening colonoscopy Screening and pharynesophageal dysphagia Procedures COLONOSCOPY EGD Referral ID Status Reason Start Date Expiration Date Visits Re quested Visits Authorized [id number] 1 1 Encounter Details Date Type Department Care Team (Late st Contact Info) Description 03/17/2021 9:20 AM CDT - 03/17/2021 9:40 AM CDT Surgery [facility] Endo/[place], [place] [address] Niall Matute MD [address] [id number] COLONOSCOPY-NORMAL Surgery Details Date/Time Status Location OR Service Patient Class Case Class Case Type Trauma Case? 03/17/2021 9:20 AM Posted [facility]o 1 Gastroenterology Short Stay/Outp [facility] Surgery E - Elective No Panel 1 Procedure LRB Anes Op Region Wound Class Comments COLONOSCOPY-NORMAL N/A General Clean Conta minated EGD, NEGATIVE N/A General Clean Contaminat ed Surgeon Surgeon Role Service Panel Niall Matute MD Primary Gastroenterology 1 documented in this encounter Social History Tobacco Use Types Packs/Day Years Used Date Smoking Tobacco: Former Cigarettes 0.3 4 1 986 - 1989 Smokeless Tobacco: Never Comments:socially Alcohol [...] Master's degree (e.g., MA, MS, Howard, MEd, DOG DAYCARE PROVIDER, KEKE) 12/21/2018 Comments No Sex and Gender [...] AM CDT documented as of this encounter Last Filed Vital Signs Vital Sign Reading Time Taken Comments Blood Pressure 122/71 03/17/2021 8:51 AM CDT Pulse 78 03/17/2021 8:51 AM CDT Temperature 36.7 ??C (98.1 ??F) 03/17/2021 8:51 AM CD T Respiratory Rate 13 03/17/2021 8:51 AM CDT Oxygen Saturation 100% 03/17/2021 8:51 AM CDT Inhaled Oxygen Concentration - - Weight 77.1 kg (170 lb) 03/12/2021 11:30 AM CDT Height 172.7 cm (5' 8 ) 03/12/2021 11:30 AM CDT Body Mass Index 25.85 03/12/2021 11:30 AM CDT documented in this encounter Discharge Instructions * Attachments The following attachments cannot be sent through Care Everywhere. * Colonoscopy Discharge Instructions (Salvadorean) * General Anesthesia Discharge Instructions (Salvadorean) * Upper GI Endoscopy Discharge Instructions (Salvadorean) documented in this encounter Medications at Time of Discharge etanercept 50 MG/ML injection Inject 1 mL (50 mg total) into the skin weekly. 05/30/2014 methotrexate 2.5 MG tablet Take by mouth once a week. Take 6 tablets every 7 days. 06/06/2018 valACYclovir 1 g tablet as needed. 10/10/2019 ALPRAZolam 0.25 MG tabletIndications: DURAN (generalized anxiety disorder) Take 1 tablet (0.25 mg total) by mouth nightly as needed. at bedtime. 30 tablet 01/26/2020 2 Ascorbic Acid (VITAMIN C) 100 MG tablet Take 1 tablet (100 mg total) by mouth daily. 4 azelastine 0.1 % nasal spray 2 sprays by Nasal route. 3 busPIRone 15 MG tabletIndications: DURAN (generalized anxiety disorder) Take 1 tablet (15 mg total) by mouth 2 (two) times daily. 60 tablet 2 11/20/2020 1 citalopram 10 MG tabletIndications: DURAN (generalized anxiety disorder) Take 1 tablet (10 mg total) by mouth daily. 30 tablet 2 11/20/2020 1 EMV-JIN-Dttswtd E 192-251-11 MG-MG-UNIT Cap Take 1 capsule by mouth daily. 3 dicyclomine 20 MG tabletIndications: Irritable bowel syndrome with both constipation and diarrhea Take 1 tablet (20 mg total) by mouth every 6 (six) hours. 120 tablet 12/21/2018 2 estradiol 0.1 MG/GM vaginal cream as needed. 10/31/2019 1 fexofenadine 180 MG tablet Take 1 tablet (180 mg total) by mouth. 3 folic acid 1 MG tablet Take 1 tablet (1 mg total) by mouth daily. 06/01/2014 3 MONTELUKAST 10 MG tabletIndications: Seasonal allergies TAKE 1 TABLET BY MOUTH DAILY IN THE EVENING 90 tablet 04/06/2019 1 multivitamin tablet Take 2 tablets by mouth daily. 4 nabumetone 500 MG tablet 2 (two) times daily. 02/23/2021 2 polyethylene glycol packet Take 240 mLs (1 packet total) by mouth daily as needed. 4 SUPREP BOWEL PREP KIT 17.5-3.13-1.6 GM/177ML Solution 02/21/2021 02 1 documented as of this encounter H&P Notes * Niall Matute MD - 03/17/2021 10:55 AM CDT GASTROENTEROLOGY H&P 03/17/2021 10:55 AM Reason for Consult: Dysphagia heartburn, screening colonoscopy History of Present Illness: Hans Pascual is a 56-year-old dysphagia and heartburn, screening colonoscopy. Patient Active Problem List Diagnosis ??? Polyarthritis ??? Arthritis ??? Irritable bowel syndrome ??? Insomnia ??? Esophageal reflux ??? DURAN (generalized anxiety disorder) ??? BMI 24.0-24.9, adult ??? Recurrent major depressive disorder, in partial remission (CMS/HCC) ??? Acute upper respiratory infection ??? Fever, unspecified fever cause ??? Pharyngoesophageal dysphagia ??? Encounter for screening colonoscopy Past Medical History: Diagnosis Date ??? Anxiety ??? IBS (irritable bowel syndrome) ??? Inflammatory arthritis Past Surgical History: Procedure Laterality Date ??? CHOLECYSTECTOMY ??? COLONOSCOPY AH 9 yrs. ??? LAMINECTOMY,LUMBAR ??? SEPTOPLASTY Family History Problem Relation Name Age of Onset ??? COPD Mother ??? Other (mva) Father Social History Socioeconomic History ??? Marital status: Spouse name: Cl ??? Number of children: 4 ??? Years of education: Not on file ??? Highest education level: Master's degree (e.g., MA, MS, Howard, MEd, DOG DAYCARE PROVIDER, KEKE) Occupational History ??? 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 Financial resource strain: Not on file ??? Food insecurity Worry: Not on file Inability: Not on file ??? Transportation needs Medical: Not on file Non-medical: Not on file Tobacco Use ??? Smoking status: Former Smoker Packs/day: 0.25 Years: 4.00 Pack years: 1.00 Types: Cigarettes Quit date: 1989 Years since quittin.3 ??? Smokeless tobacco: Never Used ??? Tobacco comment: socially Substance and Sexual Activity ??? Alcohol use: No Frequency: Never ??? Drug use: No ??? Sexual activity: Not on file Lifestyle ??? Physical activity Days per week: Not on file Minutes per session: Not on file ??? Stress: Not on file Relationships ??? Social connections Talks on phone: Not on file Gets together: Not on file Attends pentecostal service: Not on file Active member of club or organization: Not on file Attends meetings of clubs or organizations: Not on file Relationship status: Not on file ??? Intimate partner violence Fear of current or ex partner: Not on file Emotionally abused: Not on file Physically abused: Not on file Forced sexual activity: Not on file Other Topics Concern ??? Service No ??? [...] Lives at home with husb and dog. Allergies Allergen Reactions ??? Levofloxacin Nausea and Vomiting, Nausea Only, Hallucinations and Other (see comment) hallucinations Other reaction(s): Other hallucinations PHYSICAL EXAM: Filed Vitals: 03/12/21 1130 03/17/21 0851 BP: 122/71 Pulse: 78 Resp: 13 Temp: 98.1 ??F (36.7 ??C) TempSrc: Temporal SpO2: 100% Weight: 77.1 kg (170 lb) Height: 5' 8 (1.727 m) PainSc: 0 (0-10 Scale) Wt Readings from Last 3 Encounters: 03/12/21 77.1 kg (170 lb) 02/17/21 79.8 kg (176 lb) 01/31/21 79.7 kg (175 lb 9.6 oz) General: pleasant, no distress Lungs: clear to auscultation bilaterally Heart: regular rate and rhythm, normal s1-s2 Abdomen: soft, non-tender, non-distended, bowel sounds normal, no palpable masses Neuro: Alert, oriented, cooperative Labs: No results for input(s): WBC, HGB, MCV, PLT, INR in the last 168 hours. No results for input(s): NA, K, CL, CO2, BUN in the last 168 hours. Invalid input(s): CREATININE No results for input(s): AST, ALT, ALB in the last 168 hours. Invalid input(s): ALKPHOS, TBILI ? Assessment and Plan: Dysphagia heartburn, screening colonoscopy. Plan, EGD and colonoscopy The procedural risks, benefits, alternatives were discussed fully with the patient, including the risks of complications of bleeding, infection, bowel injury or perforation, anesthesia related risks but not limited to the above. Post complication remedies could include hospitalization, antibiotics,surgery or even the remote possibility of . The patient verbalized understanding of the risks and wishes to proceed. Thank you for this consult. Please do not hesitate to contact us with further questions. NIALL MATUTE MD Voice recognition software utilized documented in this encounter Nursing Notes * Mel Posada RN - 03/12/2021 11:34 AM CDT Discussed details of COVID testing with patient. Verbal consent given for testing. documented in this encounter OR Notes * Op Note - Niall Matute MD - 03/17/2021 11:[address] [facility] OpNote COLONOSCOPY-NORMAL, EGD, NEGATIVE Procedure Note Hans Pascual 03/17/2021 0920 Procedure(s) (LRB): COLONOSCOPY-NORMAL (N/A) EGD, NEGATIVE (N/A) Surgeon(s): Niall Matute MD Staff: GI Nurse: Martha Villeda RN automatic screwmaker: Heather Liz CNA Anesthesia: General Anesthesiologist: Dawna Cifuentes MD JUNIOR NETWORK ADMINISTRATOR: Elvira Farr CRNA; Con Hopper CRNA Pre-Op Diagnosis: Screening and pharynesophageal dysphagia Post-Op Diagnosis: Negative EGD. Negative colonoscopy. Procedure Description: Informed consent was obtained earlier. Patient was brought to the OR and placed in supine lateral decubitus position and sedated under MAC anesthesia. EGD. GIF 190 gastroscope was lubricated inserted into the hypopharynx advanced by direct technique.Upper middle and distal esophagus all looks normal. GE junction was normal at about 38 cm. Stomach distended well. Retroflexed views of the cardia fundus angularis revealed no abnormalities. Antrum looked normal. The first and second part of the duodenum looked normal. Colonoscopy. PCF 190 colonoscope was lubricated inserted into the rectum and advanced to the cecum.Bowel prep was excellent. Cecum was identified by the ileocecal valve and the appendiceal orifice. Cecum ascending colon transverse colon descending sigmoid and rectum were all carefully visualized on withdrawal found to be negative. Retroflexion of the anal verge revealed mild hemorrhoids and scope withdrawn. Findings: Negative EGD. Negative colonoscopy. Plan: Repeat screening colonoscopy in 10 years. Complications: None Estimated Blood Loss: 0 mL Specimens:* No orders in the log * Voice recognition software utilized. NIALL MATUTE MD Date: 03/17/2021 Time: 11:33 AM Voice recognition software utilized. documented in this encounter Plan of Treatment Upcoming Encounters Date Type Department Care Team (Late st Contact Info) Description 11/14/2024 8:00 AM REHABILITATION LIAISON Office Visit [facility] Multispecialty Care - [facility] 3 [facility], [address] [place] [phone] Montserrat Oliver NP 3 [facility] [address] [place] [address] 12/06/2024 9:30 AM REHABILITATION LIAISON Appointment [facility] Open MRI [address] [place] [address] [place] [address] [address] [place] [phone] 03/02/2025 3:20 PM CDT Office Visit [facility] Family & Internal Medicine [facility] [address] [place] [address] [place] [address] [facility]. [address] [place], [place] [id number] documented as of this encounter Procedures Procedure Name Priority Date/Time Associated Diagnosis Comments UPPER GI ENDOSCOPY,DIAGNOSIS 03/17/2021 11:02 AM CDT Pharyngoesophageal dysphagia Encounter for screening colonoscopy COLONOSCOPY 03/17/2021 11:02 AM CDT Pharyngoesophageal dysphagia Encounter for screening colonoscopy documented in this encounter Visit Diagnoses Diagnosis Pharyngoesophageal dysphagia Dysphagia, pharyngoesophageal phase Encounter for screening colonoscopy Special screening for malignant neoplasms, colon Pharyngoesophageal dysphagia Dysphagia, pharyngoesophageal phase Encounter for screening colonoscopy Special screening for malignant neoplasms, colon documented in this encounter Admitting Diagnoses Diagnosis Pharyngoesophageal dysphagia Dysphagia, pharyngoesophageal phase Encounter for screening colonoscopy Special screening for malignant neoplasms, colon documented in this encounter Administered Medications Inactive Administered Medications - up to 3 most recent administrations Medication Order MAR Action Action Date Dose Rate Site lactated ringers infusion at 10 mL/hr, Intravenous, Continuous, Starting on 03/17/21 at 1015, Until Wed03/17/21 at 1430, Not to be given to patients with end stage renal disease or dialysis. Infuse at TKO rate, Pre-Op New Bag 03/17/2021 11:04 AM CDT documented in this encounter Active and Recently Administered Medications Times are shown in CDT. Continuous Medication Order 03/15/2021 03/16/2021 03/17/2021 lactated ringers infusion at 10 mL/hr, Intravenous, Continuous, Starting on 03/17/21 at 1015, Until 03/17/21 at 1430, Not to be given to patients with end stage renal disease or dialysis. Infuse at TKO rate, Pre-Op 1104 (New Bag - Prov ider: Elvira Farr CRNA)1132 (Infusion Stop Time - Provider: Con Hopper CRNA) documented in this encounter Additional Health Concerns Assessment Noted Time PHQ-9 Depression Total Score: 4 05/01/20 19 3:05 PM CDT documented as of this encounter Care Teams Pharmacists Relationship Specialty Start Date End Date Jaspreet Pearl MD PCP - General INTERNAL MEDICINE 11/30/18 02/18/23 documented as of this encounter
--- OUTSIDE RECORDS SUMMARY | 2024-11-13 17:12 | XMS_ITS | Encounter Summary ---
Author Organization [facility] Address [address] [place] [address]. [place] [address] [place] [address] Care Team Providers Care Farmworkers Name Role Phone Jaspreet Pearl MD Primary Care Provider Felipe waydylan Encounter Details Date Type Department Care Team (Latest Contact Info) Description 11/18/2021 Travel Social History Tobacco Use Types Packs/Day [...] Master's degree (e.g., MA, MS, Howard, MEd, MUSIC MANAGER, KEKE) 12/21/2018 Comments No Sex and [...] or suspected to have Coronavirus / COVID-19? Yes 11/18/2021 4:16 PM STORE PROTECTION SPECIALIST documented as of this encounter Plan of Treatment Upcoming Encounters Date Type Department Care Team (Late st Contact Info) Description 11/14/2024 8:00 AM STORE PROTECTION SPECIALIST Office Visit [facility] Multispecialty Care - [facility] 3 [facility], [address] [place] [address] Montserrat Oliver, DOREEN 3 [facility] [address] [place] [address] 12/06/2024 9:30 AM STORE PROTECTION SPECIALIST Appointment [facility] Open MRI [address] [place] [address] [place] [address] [facility]. [address] [place] [address] 03/02/2025 3:20 PM CDT Office Visit [facility] Family & Internal Medicine - [address] [address] [place] [address] [facility]. [address] [place] [address] documented as of this encounter Visit Diagnoses Not on filedocumented in this encounter Additional Health Concerns Assessment Noted Time PHQ-9 Depression Total Score: 0 05/02/20 21 2:11 PM CDT documented as of this encounter Care Teams Farmworkers Relationship Specialty Start Date End Date Jaspreet Pearl MD PCP - General INTERNAL MEDICINE 11/30/18 02/18/23 documented as of this encounter
--- OUTSIDE RECORDS SUMMARY | 2024-11-13 17:12 | XMS_ITS | Encounter Summary ---
Author Organization [facility] Address [address] [place] [address]. [place], [place] [id number] [place] [address] Care Team Providers Care Black Top Roller Name Role Phone Jaspreet Madsen MD Primary Care Provider U juan carlos Reason for Visit * Reason Comments Knee Pain R knee pain 02/12/21 - has been using the RICE method Encounter Details Date Type Department Care Team (Late st Contact Info) Description 02/17/2021 1:20 PM CDT Office Visit [facility] [address] [place] [address] Jaspreet Madsen MD Knee Pain (R knee pain 02/12/21- has been using the RICE method ) Social History Tobacco Use Types Packs/Day [...] Master's degree (e.g., MA, MS, Howard, MEd, RANGE MECHANIC, KEKE) 12/21/2018 Comments No Sex and [...] have Coronavirus / COVID-19? No / Unsure 02/17/2021 1:05 PM CDT documented as of this encounter Last Filed Vital Signs Vital Sign Reading Time Taken Comments Blood Pressure 108/62 02/17/2021 1:07 PM CDT Pulse 77 02/17/2021 1:07 PM CDT Temperature 36.3 ??C (97.4 ??F) 02/17/2021 1:07 PM CD T Respiratory Rate 18 02/17/2021 1:07 PM CDT Oxygen Saturation 98% 02/17/2021 1:07 PM CDT Inhaled Oxygen Concentration - - Weight 79.8 kg (176 lb) 02/17/2021 1:07 PM CDT Height 172.7 cm (5' 8 ) 02/17/2021 1:07 PM CDT Body Mass Index 26.76 02/17/2021 1:07 PM CDT documented in this encounter Progress Notes * Jaspreet Madsen MD - 02/17/2021 1:20 PM CDT Reason for Visit: Knee Pain (R knee pain 02/12/21- has been using the RICE method ) Filed Vitals: 02/17/21 1307 BP: 108/62 Pulse: 77 Resp: 18 Temp: 97.4 ??F (36.3 ??C) TempSrc: Temporal SpO2: 98% Weight: 79.8 kg (176 lb) Height: 5' 8 (1.727 m) Body mass index is 26.76 kg/m??. History of Present Illness: HPI good afternoon office visit and Mrs. Luisa ashraf lady comes today telling me that she has been exercising and she was in the treadmill and suddenly experienced pain in her right knee medial aspect since then she has been having some difficulty putting weight on it there was no evidence of any serious injury or trauma. Upon examination there is no effusion or warmth ROS: Review of Systems Constitutional: Negative. Negative for chills and fever. Respiratory: Negative. Cardiovascular: Negative. Musculoskeletal: Positive for joint pain. Pain in the right knee in the medial aspect Medications: Current Outpatient Medications: ??? ALPRAZolam 0.25 MG tablet, Take 1 tablet (0.25 mg total) by mouth nightly as needed. at bedtime., Disp: 30 tablet, Rfl: 0 ??? Ascorbic Acid (VITAMIN C) 100 MG tablet, Take 100 mg by mouth daily., Disp: , Rfl: ??? azelastine (AZELASTINE) 0.1 % nasal spray, 2 sprays by Nasal route., Disp: , Rfl: ??? busPIRone 15 MG tablet, Take 1 tablet (15 mg total) by mouth 2 (two) times daily., Disp: 60 tablet, Rfl: 2 ??? citalopram 10 MG tablet, Take 1 tablet (10 mg total) by mouth daily., Disp: 30 tablet, Rfl: 2 ??? RAZ-FGO-Hfnnazx E (OMEGA-3 COMPLEX) 192-251-11 MG-MG-UNIT Cap, Take 1 capsule by mouth daily., Disp: , Rfl: ??? dicyclomine 20 MG tablet, Take 1 tablet (20 mg total) by mouth every 6 (six) hours. (Patient taking differently: Take 20 mg by mouth every 6 (six) hours as needed. ), Disp: 120 tablet, Rfl: 0 ??? estradiol 0.1 MG/GM vaginal cream, as needed. , Disp: , Rfl: ??? etanercept (ENBREL) 50 MG/ML injection, Inject 50 mg into the skin weekly. , Disp: , Rfl: ??? famotidine 20 MG tablet, Take 1 tablet (20 mg total) by mouth 2 (two) times daily as needed forHeartburn., Disp: 60 tablet, Rfl: 2 ??? fexofenadine 180 MG tablet, Take 180 mg by mouth., Disp: , Rfl: ??? folic acid 1 MG tablet, Take 1 tablet by mouth daily., Disp: , Rfl: ??? methotrexate 2.5 MG tablet, TAKE 8 TABLETS EVERY 7 DAYS, Disp: , Rfl: ??? MONTELUKAST 10 MG tablet, TAKE 1 TABLET BY MOUTH DAILY IN THE EVENING, Disp: 90 tablet, Rfl: 0 ??? multivitamin tablet, Take 2 tablets by mouth daily., Disp: , Rfl: ??? polyethylene glycol (MIRALAX) packet, Take 1 packet by mouth daily as needed., Disp: , Rfl: ??? valACYclovir 1 g tablet, as needed. , Disp: , Rfl: Allergies Allergen Reactions ??? Levofloxacin Nausea and Vomiting, Nausea Only, Hallucinations and Other (see comment) hallucinations Other reaction(s): Other hallucinations Past Medical History: Diagnosis Date ??? Anxiety ??? Inflammatory arthritis Past Surgical History: Procedure Laterality Date ??? CHOLECYSTECTOMY ??? COLONOSCOPY AH 9 yrs. ??? LAMINECTOMY,LUMBAR ??? SEPTOPLASTY Social History Socioeconomic History ??? Marital status: Spouse name: Cl ??? Number of children: 4 ??? Years of education: Not on file ??? Highest education level: Master's degree (e.g., MA, MS, Howard, MEd, RANGE MECHANIC, KEKE) Occupational History ??? 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 Financial resource strain: Not on file ??? Food insecurity Worry: Not on file Inability: Not on file ??? Transportation needs Medical: Not on file Non-medical: Not on file Tobacco Use ??? Smoking status: Former Smoker Packs/day: 0.25 Years: 4.00 Pack years: 1.00 Types: Cigarettes Quit date: 1989 since quittin.2 ??? Smokeless tobacco: Never Used ??? Tobacco [...] file Gets together: Not on file Attends caodaism service: Not on file Active member of [...] Mother Alive ??? Father Physical Exam Constitutional: She is oriented to person, place, and time. She appears well- developed and well-nourished. Cardiovascular: Normal rate and regular rhythm. Pulmonary/Chest: Effort normal and breath sounds normal. Musculoskeletal: Comments: Examination of the knee showed no evidence of restricted effusion there is no redness it seems to me this is the tip of the meniscus medially. There is tender Neurological: She is alert and oriented to person, place, and time. Assessment Encounter Diagnose(s) ICD-10-CM ICD-9-CM SNOMED CT(R) 1. Acute pain of right knee M25.561 719.46 KNEE PAIN Plan at this time my recommendation was to give herself few more days use to continue with the antiinflammation elevation and icing if he is not better within a week let me know or if he go if he gets worse at which time we will proceed with a consultation with the orthopedic physician and perhaps an MRI it looks to me that this is perhaps a meniscal injury no need for an x-ray at this point No orders of the defined types were placed in this encounter. Follow up FU PRN JASPREET MADSEN MD 02/17/2021 1:37 PM documented in this encounter Plan of Treatment Upcoming Encounters Date Type Department Care Team (Late st Contact Info) Description 11/14/2024 8:00 AM PROJECT DEVELOPMENT ENGINEER Office Visit [facility] Mult[facility]pecialty Care - [facility] 3 [facility], [address] [place] [address] Montserrat Oliver, TEXTILE STYLIST [address] [facility] [address] [place] [address] 12/06/2024 9:30 AM PROJECT DEVELOPMENT ENGINEER [facility]ment [facility] [address] [facility] [place] [address] [place] [address] [place] [address] 03/02/2025 3:20 PM CDT Office Visit [facility] Family & Internal Medicine - [address] [phone] [place] [address] [place] [address] documented as of this encounter Visit Diagnoses Diagnosis Acute pain of right knee- Primary documented in this encounter Additional Health Concerns Assessment Noted Time PHQ-9 Depression Total Score: 4 05/01/20 19 3:05 PM CDT documented as of this encounter Care Teams Black Top Roller Relationship Specialty Start Date End Date Jaspreet Madsen MD PCP - General INTERNAL MEDICINE 11/30/18 02/18/23 documented as of this encounter
--- OUTSIDE RECORDS SUMMARY | 2024-11-13 17:12 | XMS_ITS | Encounter Summary ---
Author Organization [facility] Address [address] [place] [address]. [place] [address] [place] [address] Care Team Providers Care Claim Service Representative Name Role Phone Jaspreet Pearl MD Primary Care Provider Felipe rangel Encounter Details Date Type Department Care Team (Latest Contact Info) Description 05/02/2021 Travel Social History Tobacco Use Types Packs/Day [...] degree (e.g., MA, MS, Howard, MEd, RANGE EXAMINER, KEKE) 12/21/2018 Comments No Sex and Gender [...] have Coronavirus / COVID-19? No / Unsure 05/02/2021 2:01 PM CDT documented as of this encounter Plan of Treatment Upcoming Encounters Date Type Department Care Team (Late st Contact Info) Description 11/14/2024 8:00 AM PROJECT CONSTRUCTION MANAGER Office Visit [facility] Mult[facility]pec[facility]ty Care - [facility] 3 [facility], [address] [place] [phone] Montserrat Oliver NP 3 [facility] [address] [place] [address] 12/06/2024 9:30 AM PROJECT CONSTRUCTION MANAGER Appointment [facility] Open MRI [address] [place] [address] [place] [address] [facility]. [address] [place] [phone] 03/02/2025 3:20 PM CDT Office Visit [facility] - [place] [address] [place] [phone] [place] [address] [facility]. [address] [place] [phone] documented as of this encounter Visit Diagnoses Not on filedocumented in this encounter Additional Health Concerns Assessment Noted Time PHQ-9 Depression Total Score: 0 05/02/20 21 2:11 PM CDT documented as of this encounter Care Teams Claim Service Representative Relationship Specialty Start Date End Date Jaspreet Pearl MD PCP - General INTERNAL MEDICINE 11/30/18 02/18/23 documented as of this encounter
--- OUTSIDE RECORDS SUMMARY | 2024-11-13 17:12 | XMS_ITS | Encounter Summary ---
Author Organization [facility] Address [address] [place] [address]. [place], [place] [address] [place] [address] Care Team Providers Care Foil Spinner Name Role Phone Jaspreet Pearl MD Primary Care Provider U Kelsey Dey NP Primary Care Provider [phone] Dayanara Plaza MD Primary Care Provider [phone] Perez Cervantes MD Unavailable Adriana Ma MD Unavailable [phone] Encounter Details Date Type Department Care Team (Late st Contact Info) Description 08/15/2021 [facility] Family & Internal Medicine [address] [address] Jaspreet Pearl MD RE: Question Social History Tobacco Use Types Packs/Day Years [...] Master's degree (e.g., MA, MS, Howard, MEd, DRAWING KILN OPERATOR, KEKE) 12/21/2018 Comments No Sex and [...] st Contact Info) Description 11/14/2024 8:00 AM POSTAL CARRIER Office Visit [facility] Multispecialty Care - [address], [address] [place] [phone] Montserrat Oliver NP [address] [place] [address] [place] [address] 12/06/2024 9:30 AM POSTAL CARRIER Appointment [facility] Open MRI [address] [place] [address] [place] [address] [facility]. [address] [place] [phone] 03/02/2025 3:20 PM CDT Office Visit [facility] Family & Internal Medicine - [address] [phone] [place] [address] [address] [place] [phone] documented as of this encounter Visit Diagnoses Not on filedocumented in this encounter Additional Health Concerns Infection Onset Date Last Indicated Resolved Time COVID-19 Rule Out 04/03/2024 04/03/2024 04/03/2024 11:38 AM CDT Assessment Noted Time PHQ-9 Depression Total Score: 0 05/02/20 21 2:11 PM CDT documented as of this encounter Care Teams Foil Spinner Relationship Specialty Start Date End Date Jaspreet Pearl MD PCP - General INTERNAL MEDICINE 11/30/18 02/18/23 Kelsey Kc, DOREEN [address] [address] [place] [address] PCP - General Nurse Practitioner Family 02/19/23 02/28/23 [place] [address] [address] [place] [address] PCP - General FAMILY PRACTICE 03/01/23 Perez Cervantes MD [address] [place] [phone] RHEUMATOLOGY 09/02/23 Adriana Ma MD [address] [place], [place] [phone] Referring Physician ALLERGY 09/02/23 documented as of this encounter
--- OUTSIDE RECORDS SUMMARY | 2024-11-13 17:12 | XMS_ITS | Encounter Summary ---
Author Organization [facility] Address [address] [place] [address]. [place], [place] [address] [place] [address] Care Team Providers Care Appliance Repair Technician Name Role Phone Jaspreet Madsen MD Primary Care Provider U juan carlos Reason for Visit * Reason Comments Sore Throat Sinus Drainage. Star priscilla Wednesday night.Losing her voice. Headache Started this morning . Encounter Details Date Type Department Care Team (Late Contact Info) Description 07/28/2022 8:20 AM CDT Office Visit [facility] Medical Group Family & Internal Medicine [address] [address] Jaspreet Madsen MD Sore Throat (Sinus Drainage. /Started Wednesday night./Losing her voice. ); Headache (Started this morning. ) Social History Tobacco Use Types Packs/Day [...] Master's degree (e.g., MA, MS, Howard, MEd, CONSTRUCTION SERVICES TECHNICIAN, KKEE) 12/21/2018 Comments No Sex and Gender Information [...] Sign Reading Time Taken Comments Blood Pressure 107/66 07/28/2022 8:15 AM CDT Pulse 72 07/28/2022 8:15 AM CDT Temperature 37.1 ??C (98.8 ??F) 07/28/2022 8:15 AM CD T Respiratory Rate 19 07/28/2022 8:15 AM CDT Oxygen Saturation 97% 07/28/2022 8:15 AM CDT Inhaled Oxygen Concentration - - Weight 80.3 kg (177 lb) 07/28/2022 8:15 AM CDT Height 172.7 cm (5' 8 ) 07/28/2022 8:15 AM CDT Body Mass Index 26.91 07/28/2022 8:15 AM CDT documented in this encounter Progress Notes * Jaspreet Madsen MD - 07/28/2022 8:20 AM CDT Reason for Visit: Sore Throat (Sinus Drainage. /Started Wednesday night./Losing her voice. ) and Headache (Started this morning. ) Filed Vitals: 07/28/22 0815 BP: 107/66 Pulse: 72 Resp: 19 Temp: 98.8 ??F (37.1 ??C) TempSrc: Temporal SpO2: 97% Weight: 80.3 kg (177 lb) Height: 5' 8 (1.727 m) Body mass index is 26.91 kg/m??. 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 HENT: Positive for congestion, sinus pain and sore throat. Respiratory: Positive for cough. Negative for hemoptysis, sputum production, shortness of breath and wheezing. Cardiovascular: Negative. Medications: Current Outpatient Medications: ??? albuterol sulfate HFA 108 (90 Base) MCG/ACT inhaler, , Disp: , Rfl: ??? ALPRAZolam 0.25 MG tablet, Take 1 tablet (0.25 mg total) by mouth nightly as needed for Sleep.,Disp: 30 tablet, Rfl: 0 ??? Ascorbic Acid (VITAMIN C) 100 MG tablet, Take 100 mg by mouth daily., Disp: , Rfl: ??? azelastine 0.1 % nasal spray, 2 sprays by Nasal route., Disp: , Rfl: ??? azithromycin (ZITHROMAX) 250 MG tablet, Take 1 tablet (250 mg total) by mouth daily for 5 days.TAKE 2 TABS PO DAY 1 THEN 1 TABLET DAILY, Disp: 6 tablet, Rfl: 0 ??? BUSPIRONE 15 MG tablet, TAKE 1 TABLET BY MOUTH TWICE A DAY, Disp: 180 tablet, Rfl: 0 ??? citalopram 10 MG tablet, Take 1 tablet (10 mg total) by mouth daily., Disp: 90 tablet, Rfl: 1 ??? PCC-GKE-Duxhiwq E 192-251-11 MG-MG-UNIT Cap, Take 1 capsule by mouth daily., Disp: , Rfl: ??? dicyclomine 20 MG tablet, Take 1 tablet (20 mg total) by mouth every 6 (six) hours. (Patient taking differently: Take 20 mg by mouth every 6 (six) hours as needed.), Disp: 120 tablet, Rfl: 0 ??? Estradiol 10 MCG vaginal tablet, , [...] as needed. , Disp: , Rfl: ??? gabapentin (NEURONTIN) 100 MG capsule, , Disp: , Rfl: Allergies Allergen Reactions ??? Levofloxacin Nausea and Vomiting, Nausea Only, Hallucinations and Other (see comment) hallucinations Other reaction(s): Other hallucinations Past Medical History: Diagnosis Date ??? Anxiety ??? GERD (gastroesophageal reflux disease) ??? Heart murmur ??? IBS (irritable bowel syndrome) ??? Inflammatory arthritis ??? RA (rheumatoid arthritis) (CMS/HCC) ??? Wears glasses Past Surgical History: Procedure Laterality Date ??? CHOLECYSTECTOMY ??? COLONOSCOPY AH 9 yrs. ??? COLONOSCOPY N/A 03/17/2021 COLONOSCOPY-NORMAL performed by Niall Matute MD at [facility] ??? LAMINECTOMY,LUMBAR ??? SEPTOPLASTY Social History Socioeconomic History ??? Marital status: Spouse name: Cl ??? Number of children: 4 ??? Highest education level: Master's degree (e.g., MA, MS, Howard, MEd, CONSTRUCTION SERVICES TECHNICIAN, KEKE) Occupational History ??? 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 Smoking status: Former Smoker Packs/day: 0.25 Years: 10.00 Pack years: 2.50 Types: Cigarettes Quit date: 11/15/1989 Years since quittin.7 ??? Smokeless tobacco: Never Used ??? Tobacco [...] Father Physical Exam Constitutional: Appearance: Normal appearance. HENT: Right Ear: Tympanic membrane normal. Left Ear: Tympanic membrane normal. Nose: Congestion present. Mouth/Throat: Pharynx: Posterior oropharyngeal erythema present. No oropharyngeal exudate. Cardiovascular: Rate and Rhythm: Normal rate and regular rhythm. Pulses: Normal pulses. Heart sounds: Normal heart sounds. Pulmonary: Effort: Pulmonary effort is normal. Breath sounds: Normal breath sounds. Musculoskeletal: Cervical back: Normal range of motion and neck supple. Neurological: Mental Status: She is alert. Psychiatric: Mood and Affect: Mood normal. Behavior: Behavior normal. Assessment Encounter Diagnose(s) ICD-10-CM ICD-9-CM SNOMED CT(R) 1. Upper respiratory tract infection, unspecified type J06.9 465.9 UPPER RESPIRATORY INFECTION azithromycin (ZITHROMAX) 250 MG tablet Plan at this time she does have an upper respiratory infection because of the importance of her throat and the erythema in the pharynx I going to give her the Z-Steve and drink plenty of fluids some [id number] for cough Orders Placed This Encounter ??? azithromycin (ZITHROMAX) 250 MG tablet Follow up FU PRN JASPREET MADSEN MD 07/28/2022 2:32 PM documented in this encounter Plan of Treatment Upcoming Encounters Date Type Department Care Team (Late st Contact Info) Description 11/14/2024 8:00 AM DENTAL LABORATORY WORKER Office Visit [facility] Multispecialty Care - [facility] 3 [facility], [address] [place] [address] Montserrat Oliver NP 3 [facility] [address] [place] [address] 12/06/2024 9:30 AM DENTAL LABORATORY WORKER Appointment [facility] Open MRI [address] [place] [address] [place] [address] [facility]. [address] [place] [address] 03/02/2025 3:20 PM CDT Office Visit [facility] Family & Internal Medicine - [address] [phone] [place] [address] [facility]. [address] [place] [address] documented as of this encounter Visit Diagnoses Diagnosis Upper respiratory tract infection, unspecified type- Primary documented in this encounter Additional Health Concerns Assessment Noted Time PHQ-9 Depression Total Score: 2 05/27/20 22 11:36 AM CDT documented as of this encounter Care Teams Appliance Repair Technician Relationship Specialty Start Date End Date Jaspreet Madsen MD PCP - General INTERNAL MEDICINE 11/30/18 02/18/23 documented as of this encounter
--- OUTSIDE RECORDS SUMMARY | 2024-11-13 17:12 | XMS_ITS | Encounter Summary ---
Author Organization [facility] Address [address] [place] [address]. [place] [address] [place] [address] Care Team Providers Care Jewelry Bench Worker Name Role Phone Jaspreet Pearl MD Primary Care Provider U navailable Reason for Visit * Auth/Cert Specialty Diagnoses / Procedures Referred By Chalino t Referred To Contact Diagnoses Pharyngoesophageal dysphagia Encounter for screening colonoscopy Screening and pharynesophageal dysphagia Procedures COLONOSCOPY EGD Referral ID Status Reason Start Date Expiration Date Visits Re quested Visits Authorized [id number] 1 1 Encounter Details Date Type Department Care Team (Late st Contact Info) Description 03/17/2021 11:01 AM CDT Anesthesia Event [facility] [address] Dawna Cifuentes MD Anesthesia Record Procedure Summary Procedure Name Responsible Anesthesiologist Anesthesia Start Time Anesthesia Stop Time COLONOSCOPY-NORMAL Dawna Cifuentes MD 03/17/21 1101 05/0 02/02 1137 Events Date Time Event Comment 03/17/2021 0955 0955 AN Anesthesia Prepped 1046 AN SNELLER HAND Prepped 1101 An Start Patient ID and consent checked and patient reassessed. 1101 An Start Data 1102 Nasal Cannula Applied 1108 Bite Block Inserted 1108 An Induction The patient was reevaluated immediately before moderate or deep sedation use and before anesthesia induction. 1108 Anesthesia Ready 1135 An Emergence 1135 Bite Block Removed 1136 Nasal Cannula Removed 1136 an stop data 1137 Post Anesthetic Care Handoff I completed my handoff to the receiving nurse during which we: 1. Identified the patient 2. Identified the responsible provider 3. Reviewed the pertinent medical history 4. Discussed the surgical course 5. Reviewed intra-op anesthesia management and issues during anesthesia 6. Set expectations for post-procedure period 7. Allowed opportunity for questions and acknowledgement of understanding. 1137 An Stop Meds Name Total lidocaine (PF) (XYLOCAINE) 2% injection 100 mg propofol (DIPRIVAN) 200 mg/20 mL injecti on 400 mg lactated ringers infusion 700 mL * Agents Name O2 N2O Air Ancillary O2 * Blood No blood administrations on file. Lines, Drains, and Airways Type Details Placement Removal Peripheral IV Placement Date: 02/02; Placement Time: 851; Placed Outside of This Facility?: No; Size: 20 G; Orientation: Anterior, Right; Location: Wrist; Site Prep: Chlorhexidine; Local Anesthetic: None; Inserted By: Digna Fallon RN; Insertion attempts: 1; Ultrasound-guided Placement?: No; Patient Tolerance: Tolerated well; Removal Date: 03/17/21; Removal Time: 121; Removal Reason: Patient Discharged 03/17/2152 by Nessa Gupta RN 03/17/21 121 by Pamella Duong RN documented in this encounter Social History [...] Master's degree (e.g., MA, MS, Howard, MEd, VETERINARY MANAGER, KEKE) 12/21/2018 Comments No Sex and [...] AM CDT documented as of this encounter OR Notes * Anesthesia Postprocedure Evaluation - Dawna Cifuentes MD - 03/17/2021 3:36 PM CDT Anesthesia Post-op Note Hans Tockstein Procedure(s): COLONOSCOPY-NORMAL (N/A ) EGD, NEGATIVE (N/A ) Anesthesia type: general Vitals: 03/17/21 1155 BP: 103/63 Vitals: 03/17/21 1155 Pulse: 57 Vitals: 03/17/21 1155 Resp: 15 Vitals: 03/17/21 0851 Temp: 36.7 ??C Vitals: 03/17/21 1155 SpO2: 99% Patient Location: Phase II/Outpatient Level of Consciousness: awake Pain Management: adequate analgesia Airway Patency: patent Respiratory Status: acceptable Cardiovascular Status: acceptable Post-Op Nausea: none Postoperative Hydration: euvolemic Complications: no anesthesia complication * Anesthesia Postprocedure Evaluation - Dawna Cifuentes MD - 03/17/2021 3:32 PM CDT Anesthesia Post-op Note Hans Simmonstein Procedure(s): COLONOSCOPY-NORMAL (N/A ) EGD, NEGATIVE (N/A ) Anesthesia type: general Vitals: 03/17/21 1155 BP: 103/63 Vitals: 03/17/21 1155 Pulse: 57 Vitals: 03/17/21 1155 Resp: 15 Vitals: 03/17/21 0851 Temp: 36.7 ??C Vitals: 03/17/21 1155 SpO2: 99% Patient Location: Other Level of Consciousness: awake Pain Management: adequate analgesia Airway Patency: patent Respiratory Status: acceptable Cardiovascular Status: acceptable Post-Op Nausea: none Postoperative Hydration: euvolemic Complications: no anesthesia complication Comments: Pt evaluated prior to discharge from perioperative care * Anesthesia Preprocedure Evaluation - Dawna Cifuentes MD - 03/17/2021 9:53 AM CDT Anesthesia ROS/MED History Reviewed: Patient summary , Family history anesthesia, Anesthesia history , Medications , Labs , Unchecked boxes are not applicable Pre-Anesthetic State: alert, awake and responds appropriately no history of anesthetic complications Pulmonary neg pulmonary ROS Cardiovascular Exercise tolerance:good (> 4 mets) (-) hypertension, hyperlipidemia Neuro/Psych neg neuro/psych ROS GI/Hepatic/Renal neg GI/hepatic/renal ROS Comments: H/o IBS Endo/Other neg endo/other ROS GENERAL COMMENTS 34 yo F with pmh of anxiety/depression, IBS scheduled for colonoscopy. Physical Evaluation Airway Mallampati: II TM Distance: >3 FB Neck ROM: normal Dental (implants) Pulmonary Pulmonary exam normal Cardiovascular Cardiovascular exam normal Other findings: Blood pressure 122/71, pulse 78, temperature 36.7 ??C, temperature source Temporal,resp. rate 13, height 5' 8 (1.727 m), weight 77.1 kg (170 lb), SpO2 100 %. No results for input(s): WBC, RBC, HGB, HCT, PLT, NA, K, CL, CO2, AGAP, BUN, CR, BUNCREATININ, GFRNON, GFR, GLU, CA in the last 72 hours. Anesthesia Plan ASA 2 Intravenous Induction Anesthesia type: general Discussed potential risks of General Anesthesia including but not limited to corneal abrasion, visual impairment or visual loss, mouth injury, dental damage, sore throat, hoarseness, esophageal injury, awareness under anesthesia, nerve injury due to positioning, aspiration, pneumonia, stroke, cardiac event, adverse drug reactions and . TIVA Informed Consent Anesthetic plan and risks discussed with patient of whom consent was obtained. . documented in this encounter Plan of Treatment Upcoming Encounters Date Type Department Care Team (Late st Contact Info) Description 11/14/2024 8:00 AM FOLD SKIVER Office Visit [facility] Multispecialty Care - [address], [address] [place] [phone] Montserrat Oliver NP [address] [place] [address] [place] [address] 12/06/2024 9:30 AM FOLD SKIVER Appointment [facility] [address] [place] [address] [place] [address] [place], [place] [phone] 03/02/2025 3:20 PM CDT Office Visit [facility] Medical Group Family & Internal Medicine - [place] [address] [place] [address] [place] [address] [place], [place] [phone] documented as of this encounter Visit Diagnoses Not on filedocumented in this encounter Administered Medications Inactive Administered Medications - up to 3 most recent administrations Medication Order MAR Action Action Date Dose Rate Site lactated ringers infusion at 10 mL/hr, Intravenous, Continuous, Starting on Wed03/17/21 at 1015, Until Wed03/17/21 at 1430, Not to be given to patients with end stage renal disease or dialysis. Infuse at TKO rate, Pre-Op New Bag 03/17/2021 11:04 AM CDT lidocaine (PF) (XYLOCAINE) 2 % injection PRN, Starting on Wed03/17/21 at 1108, Until Wed03/17/21 at 1137, Anesthesia Intra-Op Given 03/17/2021 11:08 AM CDT 100 mg propofol (DIPRIVAN) IV bolus PRN, Starting on Wed03/17/21 at 1108, Until Wed03/17/21 at 1137, Anesthesia Intra-Op Given 03/17/2021 11:31 AM CDT 50 mg Given 03/17/2021 11:27 AM CDT 50 mg Given 03/17/2021 11:23 AM CDT 60 mg documented in this encounter Additional Health Concerns Assessment Noted Time PHQ-9 Depression Total Score: 4 05/01/20 19 3:05 PM CDT documented as of this encounter Care Teams Jewelry Bench Worker Relationship Specialty Start Date End Date Jaspreet Pearl MD PCP - General INTERNAL MEDICINE 11/30/18 02/18/23 documented as of this encounter
--- OUTSIDE RECORDS SUMMARY | 2024-11-13 17:12 | XMS_ITS | Encounter Summary ---
Author Organization [facility] Address [address] [place] [address]. [place] [address] [place] [address] Care Team Providers Care Accessories Repairer Name Role Phone Jaspreet Pearl MD Primary Care Provider Felipe rangel Encounter Details Date Type Department Care Team (Latest Contact Info) Description 12/29/2022 Travel Social History Tobacco Use Types Packs/Day [...] Master's degree (e.g., MA, MS, Howard, MEd, HYDRO STATION OPERATOR, KEKE) 12/21/2018 Comments No Sex and [...] Coronavirus/COVID-19? No / Unsure 12/29/2022 7:12 AM SALES REPRESENTATIVE METALS documented as of this encounter Plan of Treatment Upcoming Encounters Date Type Department Care Team (Late st Contact Info) Description 11/14/2024 8:00 AM SALES REPRESENTATIVE METALS Office Visit [facility] Multispecialty Care - [facility] 3 [facility], [address] [place] [address] Montserrat Oliver NP 3 [facility] [address] [place] [address] 12/06/2024 9:30 AM SALES REPRESENTATIVE METALS Appointment [facility] Open MRI [address] [place] [address] [place] [address] [facility]. [address] [place] [phone] 03/02/2025 3:20 PM CDT Office Visit [facility] Family & Internal Medicine - [address] [phone] [place] [address] [facility]. [address] [place] [address] documented as of this encounter Visit Diagnoses Not on filedocumented in this encounter Additional Health Concerns Assessment Noted Time PHQ-9 Depression Total Score: 2 05/27/20 22 11:36 AM CDT documented as of this encounter Care Teams Accessories Repairer Relationship Specialty Start Date End Date Jaspreet Pearl MD PCP - General INTERNAL MEDICINE 11/30/18 02/18/23 documented as of this encounter
--- OUTSIDE RECORDS SUMMARY | 2024-11-13 17:12 | XMS_ITS | Encounter Summary ---
Author Organization [facility] Address [address] [place] [address]. [place], [place] [id number] [place] [address] Care Team Providers Care Audit Clerks Supervisor Name Role Phone Jaspreet Madsen MD Primary Care Provider U juan carlos Reason for Visit * Reason Onset Date Comments Med Refills 05/21/2022 Encounter Details Date Type Department Care Team (Late st Contact Info) Description 05/21/2022 Telephone [facility] Family & Internal Medicine [address] [phone] Jaspreet Madsen MD Med Refills Social History Tobacco Use Types Packs/Day Years [...] Master's degree (e.g., MA, MS, Howard, MEd, CARBIDE DIE MAKER, KEKE) 12/21/2018 Comments No Sex and Gender Information Value Date Recorded Sex Assigned at Not on file Legal Sex Female 8:16 PM CDT Gender Identity Not on file Sexual Orientation Not on file 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 * Asmita Amaya - 05/25/2022 11:31 AM CDT Appt ryann'd 05/27 * Cristina Cartwright - 05/22/2022 12:05 PM CDT Called and left VM for patient to call and make an appointment. * Barb Vital RN - 05/21/2022 3:40 PM CDT Needs appt. * Annetta Milton - 05/21/2022 3:09 PM CDT Medication and strength: MONTELUKAST 10MG,BUSIPIRONE 15MG/CITALOPRAM 10MG [facility] Call back #: [phone] Last office visit at this office: Last visit with JASPRETE MADSEN in [facility] was on: 11/04/2021 in [facility] Future appointment scheduled: No future appointments. documented in this encounter Plan of Treatment Upcoming Encounters Date Type Department Care Team (Late st Contact Info) Description 11/14/2024 8:00 AM FLOATING DERRICK OPERATOR Office Visit [facility] Multispecialty [facility] 3 [facility], [address] [place] [address] Montserrat Oliver NP 3 [facility] [address] [place] [address] 12/06/2024 9:30 AM FLOATING DERRICK OPERATOR Appointment [facility] Open MRI [address] [address] [place] [address] [facility]. [address] [place] [address] 03/02/2025 3:20 PM CDT Office Visit [facility] Family & Internal Medicine - [address] [phone] [place] [address] [place] [address] documented as of this encounter Visit Diagnoses Diagnosis Seasonal allergies Allergic rhinitis, cause unspecified DURAN (generalized anxiety disorder) Generalized anxiety disorder documented in this encounter Additional Health Concerns Assessment Noted Time PHQ-9 Depression Total Score: 0 05/02/20 21 2:11 PM CDT documented as of this encounter Care Teams Audit Clerks Supervisor Relationship Specialty Start Date End Date Jaspreet Madsen MD PCP - General INTERNAL MEDICINE 11/30/18 02/18/23 documented as of this encounter
--- OUTSIDE RECORDS SUMMARY | 2024-11-13 17:12 | XMS_ITS | Encounter Summary ---
Author Organization [facility] Address [address] [place] [address]. [place], [place] [id number] [place] [address] Care Team Providers Care Title Attorney Name Role Phone Jaspreet Madsen MD Primary Care Provider U raynaailable Reason for Referral * Consultation/Treatment (Routine) - Closed Specialty Diagnoses / Procedures Referred By Contac t Referred To Contact ORTHOPAEDIC SURGERY / ORTHOPAEDICS Diagnoses Trigger ring finger of right hand Jaspreet Madsen MD [place], [place] [address] [place] [address] Phone: tel: fax: Referral ID Status Reason Start Date Expiration Date V isits Requested Visits Authorized [id number] Closed Specialty Services 05/02/2021 06/01/2022 100 100 Scheduling Instructions A[address] with [address] Strange Reason for Visit * Reason Comments Follow Up medication refills b ump on left hand Encounter Details Date Type Department Care Team (Late st Contact Info) Description 05/02/2021 2:20 PM CDT Office Visit [facility] Family & Internal Medicine [facility] [phone] [place] [phone] Jaspreet Madsen MD Follow Up (medication refills bump on left hand) Social History Tobacco Use Types Packs/Day Years [...] Master's degree (e.g., MA, MS, Howard, MEd, THERAPEUTIC ACTIVITIES SERVICES WORKER, KEKE) 12/21/2018 Comments No Sex and Gender [...] Sign Reading Time Taken Comments Blood Pressure 128/72 05/02/2021 2:06 PM CDT Pulse 78 05/02/2021 2:06 PM CDT Temperature 36.5 ??C (97.7 ??F) 05/02/2021 2:06 PM CD T Respiratory Rate 16 05/02/2021 2:06 PM CDT Oxygen Saturation 97% 05/02/2021 2:06 PM CDT Inhaled Oxygen Concentration - - Weight 80.3 kg (177 lb) 05/02/2021 2:06 PM CDT Height 172.7 cm (5' 8 ) 05/02/2021 2:06 PM CDT Body Mass Index 26.91 05/02/2021 2:06 PM CDT documented in this encounter Progress Notes * Jaspreet Madsen MD - 05/02/2021 2:20 PM CDT Images from the original note were not included. Reason for Visit: Follow Up (medication refills bump on left hand) Filed Vitals: 06/18/21 1406 BP: 128/72 Pulse: 78 Resp: 16 Temp: 97.7 ??F (36.5 ??C) TempSrc: Temporal SpO2: 97% Weight: 80.3 kg (177 lb) Height: 5' 8 (1.727 m) Body mass index is 26.91 kg/m??. History of Present Illness: HPI good afternoon office visit and Mrs. Moran 56-year-old lady with a history of polyarthritis andgeneralized anxiety disorder. She looks very good she is very relaxed she has not been use the Xanax as often as he used to she is still going to counseling and she will continue with her current medications she does have a little bit of pain in the left hand suggestive of trigger finger with an inflammation of the extensor ligament there is been going on for several months so at this time I going to refer her to see Dr. 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 Musculoskeletal: Positive for joint pain. Left hand pain with some inflammation of the ring finger flexors ligament Psychiatric/Behavioral: The patient is nervous/anxious. Medications: Current Outpatient Medications: ??? ALPRAZolam 0.25 [...] times daily., Disp: 180 tablet, Rfl: 1 ??? citalopram 10 MG tablet, Take 1 tablet (10 mg total) by mouth daily., Disp: 90 tablet, Rfl: 1 ??? MSO-ZYP-Guwquav E (OMEGA-3 COMPLEX) 192-251-11 MG-MG-UNIT Cap, Take [...] by mouth daily., Disp: , Rfl: ??? IMVEXXY MAINTENANCE PACK 10 MCG INSERT, , Disp: , Rfl: ??? methotrexate 2.5 MG tablet, TAKE 8 TABLETS EVERY 7 DAYS, Disp: , Rfl: ??? montelukast 10 MG tablet, Take 1 tablet (10 mg total) by mouth every evening., Disp: 90 tablet,Rfl: 1 ??? multivitamin tablet, Take 2 tablets by mouth daily., Disp: , Rfl: ??? nabumetone 500 MG tablet, , Disp: , Rfl: ??? polyethylene glycol (MIRALAX) packet, Take 1 packet by mouth daily as needed., Disp: , Rfl: ??? SUPREP BOWEL PREP KIT 17.5-3.13-1.6 GM/177ML Solution, , Disp: , Rfl: ??? valACYclovir 1 g [...] COLONOSCOPY-NORMAL performed by Niall Matute MD at [facility] ??? LAMINECTOMY,LUMBAR ??? SEPTOPLASTY Social History Socioeconomic History ??? Marital status: Spouse name: Cl ??? Number of children: 4 ??? Years of education: Not on file ??? Highest education level: Master's degree (e.g., MA, MS, Howard, MEd, THERAPEUTIC ACTIVITIES SERVICES WORKER, KEKE) Occupational History ??? 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 Smoking status: Former Smoker Packs/day: 0.25 Years: 4.00 Pack years: 1.00 Types: Cigarettes Quit date: 1989 Years since quittin.4 ??? Smokeless tobacco: Never Used ??? Tobacco comment: socially Substance and Sexual Activity ??? Alcohol use: No ??? Drug use: No ??? Sexual activity: Not on file Other Topics Concern [...] Social Determinants of Health Financial Resource Strain: ??? Difficulty of Paying Living Expenses: Food Insecurity: ??? Worried About Running Out of Food in the Last Year: ??? Ran Out of Food in the Last Year: Transportation Needs: ??? Lack of Transportation (Medical): ??? Lack of Transportation (Non-Medical): Physical Activity: ??? Days of Exercise per Week: ??? Minutes of Exercise per Session: Stress: ??? Feeling of Stress : Social Connections: ??? Frequency of Communication with Friends and Family: ??? Frequency of Social Gatherings with Friends and Family: ??? Attends Confucianism Services: ??? Active Member of Clubs or Organizations: ??? Attends Club or Organization Meetings: ??? Marital Status: Intimate Partner Violence: ??? Fear of Current or Ex-Partner: ??? Emotionally Abused: ??? Physically Abused: ??? Sexually Abused: Family History Problem Relation Name Age of Onset ??? COPD Mother ??? Other (mva) Father Family Status Relation Name Status ??? Mother Alive ??? Father Physical Exam Constitutional: She is oriented to person, place, and time. She appears well- developed and well-nourished. Cardiovascular: Normal rate and regular rhythm. Pulmonary/Chest: Effort normal and breath sounds normal. Musculoskeletal: General: Normal range of motion. Arms: Neurological: She is alert and oriented to person, place, and time. Psychiatric: She has a normal mood and affect. Assessment Encounter Diagnose(s) ICD-10-CM ICD-9-CM SNOMED CT(R) 1. Trigger ring finger of right hand M65.341 727.03 TRIGGERING OF DIGIT Ambulatory referral to Orthopedics 2. DURAN (generalized anxiety disorder) F41.1 300.02 GENERALIZED ANXIETY DISORDER citalopram 10 MG tablet busPIRone 15 MG tablet 3. Seasonal allergies J30.2 477.9 SEASONAL ALLERGY montelukast 10 MG tablet Plan at this time I will refer her to see Dr. Strange for a possible evaluation and treatment perhaps she may benefit from steroid injection in the tendon at this time we will continue with the current medication for her anxiety and depression refills will be given also the medications for her seasonal allergies. Orders Placed This Encounter ??? Ambulatory referral to Orthopedics ??? IMVEXXY MAINTENANCE PACK 10 MCG INSERT ??? citalopram 10 MG tablet ??? busPIRone 15 MG tablet ??? montelukast 10 MG tablet Follow up FU 6 MONTHS JASPREET MADSEN MD 05/02/2021 3:09 PM documented in this encounter Plan of Treatment Upcoming Encounters Date Type Department Care Team (Late st Contact Info) Description 11/14/2024 8:00 AM MINERAL WOOL INSULATION SUPERVISOR Office Visit [facility] Multispecialty Care - [facility] 3 [facility], [address] [place] [phone] Montserrat Oliver NP 3 [facility] [address] [place] [address] 12/06/2024 9:30 AM MINERAL WOOL INSULATION SUPERVISOR Appointment [facility] Open MRI [address] [place] [address] [place] [address] [place] [address] 03/02/2025 3:20 PM CDT Office Visit [facility] Family & Internal Medicine - [address] [phone] [place] [address] [place] [address] Scheduled Referrals Name Type Priority Associated Diagnoses Orde r Schedule Ambulatory referral to Orthopedics Referral Routine Trigger ring finger of right hand Ordered: 05/02/2021 documented as of this encounter Visit Diagnoses Diagnosis Trigger ring finger of right hand- Primary Trigger finger (acquired) DURAN (generalized anxiety disorder) Generalized anxiety disorder Seasonal allergies Allergic rhinitis, cause unspecified documented in this encounter Additional Health Concerns Assessment Noted Time PHQ-9 Depression Total Score: 0 05/02/20 21 2:11 PM CDT documented as of this encounter Care Teams Title Attorney Relationship Specialty Start Date End Date Jaspreet Madsen MD PCP - General INTERNAL MEDICINE 11/30/18 02/18/23 documented as of this encounter
--- OUTSIDE RECORDS SUMMARY | 2024-11-13 17:12 | XMS_ITS | Encounter Summary ---
Author Organization [facility] Address [address] [place] [address]. [place] [address] [place] [address] Care Team Providers Care Patrol Commander Name Role Phone Jaspreet Pearl MD Primary Care Provider eFlipe waydylan Encounter Details Date Type Department Care Team (Latest Contact Info) Description 07/06/2022 Travel Social History Tobacco Use Types Packs/Day [...] Master's degree (e.g., MA, MS, Howard, MEd, GARDEN IMPLEMENT MECHANIC, KEKE) 12/21/2018 Comments No Sex and [...] st Contact Info) Description 11/14/2024 8:00 AM POLICE SERVICE TECHNICIAN Office Visit [facility] Multispecialty Care - [facility] 3 [facility], [address] [place] [phone] Montserrat Oliver NP 3 [facility] [address] [place] [address] 12/06/2024 9:30 AM POLICE SERVICE TECHNICIAN Appointment [facility] Open MRI [address] [place] [address] [place] [address] [facility]. [address] [place] [phone] 03/02/2025 3:20 PM CDT Office Visit [facility] Family & Internal Medicine - [address] [phone] [place] [address] [facility]. [address] [place] [address] documented as of this encounter Visit Diagnoses Not on filedocumented in this encounter Additional Health Concerns Assessment Noted Time PHQ-9 Depression Total Score: 2 05/27/20 22 11:36 AM CDT documented as of this encounter Care Teams Patrol Commander Relationship Specialty Start Date End Date Jaspreet Pearl MD PCP - General INTERNAL MEDICINE 11/30/18 02/18/23 documented as of this encounter
--- OUTSIDE RECORDS SUMMARY | 2024-11-13 17:12 | XMS_ITS | Encounter Summary ---
Author Organization [facility] Address [address] [place] [address]. [place], [place] [phone] [place] [address] Care Team Providers Care Oil Heat Technician Name Role Phone Jaspreet Madsen MD Primary Care Provider U navailable Reason for Visit * Reason Comments Annual Pt here for yearly p hysical Medication Management Pt needs medicatio n refills Encounter Details Date Type Department Care Team (Late st Contact Info) Description 01/29/2023 8:40 AM CDT Office Visit [facility] Family & Internal Medicine [address] [phone] Jaspreet Madsen MD Annual (Pt here for yearly physical ); Medication Management (Pt needs medication refills ) Social History Tobacco Use Types Packs/Day [...] Master's degree (e.g., MA, MS, Howard, MEd, NICKEL OPERATOR, KEKE) 12/21/2018 Comments No Sex and [...] Sign Reading Time Taken Comments Blood Pressure 97/68 01/29/2023 8:48 AM CDT Pulse 71 01/29/2023 8:48 AM CDT Temperature 37.3 ??C (99.2 ??F) 01/29/2023 8:48 AM CD T Respiratory Rate 18 01/29/2023 8:48 AM CDT Oxygen Saturation 98% 01/29/2023 8:48 AM CDT Inhaled Oxygen Concentration - - Weight 75.5 kg (166 lb 6.4 oz) 01/29/2023 8:48 A M CDT Height 172.7 cm (5' 8 ) 01/29/2023 8:48 AM CDT Body Mass Index 25.3 01/29/2023 8:48 AM CDT documented in this encounter Progress Notes * Jaspreet Madsen MD - 01/29/2023 8:40 AM CDT Reason for Visit: Annual (Pt here for yearly physical ) and Medication Management (Pt needs medication refills ) Filed Vitals: 01/29/23 0848 BP: 97/68 Pulse: 71 Resp: 18 Temp: 99.2 ??F (37.3 ??C) TempSrc: Temporal SpO2: 98% Weight: 75.5 kg (166 lb 6.4 oz) Height: 5' 8 (1.727 m) Body mass index is 25.3 kg/m??. History of Present Illness: HPI good morning office visit with Luisa sierra has been my patient for several years in she is here today for the last time she is a very pleasant lady she is going to follow-up with Dr. Plaza and katalina has a refuse driver. 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 Respiratory: Negative. Cardiovascular: Negative. Musculoskeletal: Negative. Psychiatric/Behavioral: Positive for depression. The patient is nervous/anxious. Doing very well with the current medications. She also sees a counselor once a month anxiety All other systems reviewed and are negative. Medications: Current Outpatient Medications: ??? Ascorbic Acid (VITAMIN C) 100 MG tablet, Take 1 tablet (100 mg total) by mouth daily., Disp: , Rfl: ??? azelastine 0.1 % nasal spray, 2 sprays by Nasal route., Disp: , Rfl: ??? BUSPIRONE 15 MG tablet, TAKE 1 TABLET BY MOUTH TWICE A DAY, Disp: 180 tablet, Rfl: 0 ??? citalopram 10 MG tablet, Take 1 tablet (10 mg total) by mouth daily., Disp: 90 tablet, Rfl: 1 ??? dicyclomine (BENTYL) 20 MG tablet, Take 1 tablet (20 mg total) by mouth every 6 (six) hours as needed., Disp: 120 tablet, Rfl: 0 ??? Estradiol 10 MCG vaginal tablet, , Disp: , Rfl: ??? etanercept 50 MG/ML injection, Inject 1 mL (50 mg total) into the skin weekly., Disp: , Rfl: ??? fexofenadine 180 MG tablet, Take 1 tablet (180 mg total) by mouth., Disp: , Rfl: ??? folic acid 1 MG tablet, Take 1 tablet (1 mg total) by mouth daily., Disp: , Rfl: ??? methotrexate 2.5 MG tablet, TAKE 8 TABLETS EVERY 7 DAYS, Disp: , Rfl: ??? montelukast 10 MG tablet, Take 1 tablet (10 mg total) by mouth daily., Disp: 90 tablet, Rfl: 1 ??? multivitamin tablet, Take 2 tablets by mouth daily., Disp: , Rfl: ??? nabumetone (RELAFEN) 500 MG tablet, Take 2 tablets (1,000 mg total) by mouth 2 (two) times daily., Disp: , Rfl: ??? nabumetone 500 MG tablet, Take 2 tablets (1,000 mg total) by mouth 2 (two) times daily., Disp: , Rfl: ??? polyethylene glycol packet, Take 240 mLs (1 packet total) by mouth daily as needed., Disp: , Rfl: ??? valACYclovir 1 g tablet, as needed. , Disp: , Rfl: ??? albuterol sulfate HFA 108 (90 Base) MCG/ACT inhaler, , Disp: , Rfl: ??? ALPRAZolam 0.25 MG tablet, Take 1 tablet (0.25 mg total) by mouth nightly as needed for Sleep. (Patient not taking: Reported on 12/29/2022), Disp: 30 tablet, Rfl: 0 ??? NVP-OMS-Bzeoqpg E 192-251-11 MG-MG-UNIT Cap, Take 1 capsule by mouth daily., Disp: , Rfl: Allergies Allergen Reactions ??? [...] COLONOSCOPY-NORMAL performed by Niall Matute MD at [facility] ??? LAMINECTOMY,LUMBAR ??? SEPTOPLASTY Social History Socioeconomic History ??? Marital status: Spouse name: Cl ??? Number of children: 4 ??? Highest education level: Master's degree (e.g., MA, MS, Howard, MEd, NICKEL OPERATOR, KEKE) Occupational History ??? 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 Smoking status: Former Packs/day: 0.25 Years: 10.00 Pack years: 2.50 Types: Cigarettes Quit date: 11/15/1989 Years since quittin.2 ??? Smokeless tobacco: Never ??? Tobacco comments: off and on for 10 [...] breath sounds. Abdominal: General: Abdomen is flat. Palpations: Abdomen is soft. Musculoskeletal: Cervical back: Normal range of motion and neck supple. Neurological: General: No focal deficit present. Mental Status: She is alert and oriented to person, place, and time. Psychiatric: Mood and Affect: Mood normal. Behavior: Behavior normal. Thought Content: Thought content normal. Judgment: Judgment normal. Assessment Encounter Diagnose(s) ICD-10-CM ICD-9-CM SNOMED CT(R) 1. Recurrent major depressive disorder, in partial remission (CMS/HCC) F33.41 296.35 RECURRENT MAJOR DEPRESSION IN PARTIAL REMISSION 2. DURAN (generalized anxiety disorder) F41.1 300.02 GENERALIZED ANXIETY DISORDER 3. Polyarthritis M13.0 716.50 POLYARTHROPATHY Plan 1. Recurrent major depressive disorder, in partial remission (CMS/HCC) doing very well with the current medications for depression and anxiety medications 2. DURAN (generalized anxiety disorder) Continue current medications in counseling doing excellently well especially now that she is going to retire she is going to be more relaxed 3. Polyarthritis Continue care with the refuse driver taking anti-inflammatory medicines and methotrexate Orders Placed This Encounter ??? nabumetone (RELAFEN) 500 MG tablet Follow up FU 6 MONTHS JASPREET MADSEN MD 01/29/2023 9:09 AM documented in this encounter Plan of Treatment Upcoming Encounters Date Type Department Care Team (Late st Contact Info) Description 11/14/2024 8:00 AM PLUG STITCHER Office Visit [facility] Multispecialty Care - [facility] 3 [facility], [address] [place] [phone] Montserrat Oliver NP 3 [facility] [address] [place] [address] 12/06/2024 9:30 AM PLUG STITCHER Appointment [facility] MRI [address] [place] [address] [place] [address] [facility] [address] [place] [phone] 03/02/2025 3:20 PM CDT Office Visit [facility] Family & Internal Medicine - [address] [phone] [place] [address] [facility] [address] [place] [address] documented as of this encounter Visit Diagnoses Diagnosis Recurrent major depressive disorder, in partial remission (CMS/HCC)- Primary DURAN (generalized anxiety disorder) Generalized anxiety disorder Polyarthritis Unspecified polyarthropathy or polyarthritis, site unspecified documented in this encounter Additional Health Concerns Assessment Noted Time PHQ-9 Depression Total Score: 2 05/27/20 22 11:36 AM CDT documented as of this encounter Care Teams Oil Heat Technician Relationship Specialty Start Date End Date Jaspreet Madsen MD PCP - General INTERNAL MEDICINE 11/30/18 02/18/23 documented as of this encounter
--- OUTSIDE RECORDS SUMMARY | 2024-11-13 17:12 | XMS_ITS | Encounter Summary ---
Author Organization [facility] Address [address] [place] [address]. [place] [address] [place] [address] Care Team Providers Care Refractory Manager Name Role Phone Jaspreet Pearl MD Primary Care Provider Felipe rangel Encounter Details Date Type Department Care Team (Latest Contact Info) Description 08/06/2021 Scan HEALTH INFO SRVCS Scanned, Documents Social History Tobacco Use Types Packs/Day Years [...] Master's degree (e.g., MA, MS, Howard, MEd, CROWNING INSPECTOR, KEKE) 12/21/2018 Comments No Sex and [...] (Late Contact Info) Description 11/14/2024 8:00 AM PAUNCH TRIMMER Office [facility], [address] [place] [address] Montserrat Oliver, DOREEN 3 [facility] [address] [place] [address] 12/06/2024 9:30 AM PAUNCH TRIMMER Appointment [facility] Open MRI [address] [place] [address] [place] [address] [facility] [employer] [place], [place] [phone] 03/02/2025 3:20 PM CDT Office Visit [facility] Family & Internal Medicine - [address] [phone] [place] [address] [place], [place] [phone] documented as of this encounter Visit Diagnoses Not on filedocumented in this encounter Additional Health Concerns Assessment Noted Time PHQ-9 Depression Total Score: 0 05/02/20 21 2:11 PM CDT documented as of this encounter Care Teams Refractory Manager Relationship Specialty Start Date End Date Jaspreet Pearl MD PCP - General INTERNAL MEDICINE 11/30/18 02/18/23 documented as of this encounter
--- OUTSIDE RECORDS SUMMARY | 2024-11-13 17:12 | XMS_ITS | Encounter Summary ---
Author Organization [facility] Address [address] [place] [address]. [place] [address] [place] [address] Care Team Providers Care Clubhouse Attendant Name Role Phone Jaspreet Pearl MD Primary Care Provider Felipe archerelijah Encounter Details Date Type Department Care Team (Late st Contact Info) Description 07/30/[address] [facility] Family & Internal Medicine - [place] [address] [place] [address] Bailee Rangel APNP [address] [facility] [address] [place] [address] Social History Tobacco Use Types Packs/Day [...] Master's degree (e.g., MA, MS, Howard, MEd, PREDICTIVE MAINTENANCE SPECIALIST, KEKE) 12/21/2018 Comments No Sex and [...] st Contact Info) Description 11/14/2024 8:00 AM ASSISTANT CENTER MANAGER Office Visit [facility] Multispecialty Care - [address], [address] [place] [phone] Montserrat Oliver NP 3 [facility] [address] [place] [address] 12/06/2024 9:30 AM ASSISTANT CENTER MANAGER Appointment [facility] Open MRI [address] [place] [address] [place] [address] [facility] [address] [place] [address] 03/02/2025 3:20 PM CDT Office Visit [facility] Family & Internal Medicine - [address] [phone] [place] [address] [facility] [address] [place] [address] documented as of this encounter Visit Diagnoses Diagnosis Upper respiratory tract infection, unspecified type- Primary Cough documented in this encounter Additional Health Concerns Assessment Noted Time PHQ-9 Depression Total Score: 2 05/27/20 22 11:36 AM CDT documented as of this encounter Care Teams Clubhouse Attendant Relationship Specialty Start Date End Date Jaspreet Pearl MD PCP - General INTERNAL MEDICINE 11/30/18 02/18/23 documented as of this encounter
--- OUTSIDE RECORDS SUMMARY | 2024-11-13 17:12 | XMS_ITS | Encounter Summary ---
Author Organization [facility] Address [address] [place] [address]. [place], [place] [address] [place] [address] Care Team Providers Care Senior Abap Developer Name Role Phone Jaspreet Madsen MD Primary Care Provider U raynaailable Reason for Visit * Reason Comments Consult For Colonoscopy pt is here for a consult, IBS flare up * Consultation (Routine) - Closed Specialty Diagnoses / Procedures Referred By Chalino bazan Referred To Contact GASTROENTEROLOGY Diagnoses Encounter for screening colonoscopy Jaspreet Madsen MD Kim, Peter S, MD [address] [address] Phone: tel: fax: Referral ID Status Reason Start Date Expiration Date Visits Re quested Visits Authorized [id number] Closed 11/13/2020 12/14/2021 99 99 Encounter Details Date Type Department Care Team (Latest Contact Info) Description 01/31/2021 1:00 PM CDT Office Visit [facility] [address] [phone] Niall Matute MD 3 [facility] [address] [place], [place] [address] Ana Colbert NP 3 [facility]. [address] [place], [place] [address] Consult For Colonoscopy (pt is here for a consult, IBS flare up) Social History Tobacco Use Types Packs/Day Years [...] Master's degree (e.g., MA, MS, Howard, MEd, CITY SOLICITOR, KEKE) 12/21/2018 Comments No Sex and Gender [...] Reading Time Taken Comments Blood Pressure 110/66 01/31/2021 1:02 PM CDT Pulse 65 01/31/2021 1:02 PM CDT Temperature 37 ??C (98.6 ??F) 01/31/2021 1:02 PM CDT Respiratory Rate 18 01/31/2021 1:02 PM CDT Oxygen Saturation 98% 01/31/2021 1:02 PM CDT Inhaled Oxygen Concentration - - Weight 79.7 kg (175 lb 9.6 oz) 01/31/2021 1:02 P M CDT Height 172.7 cm (5' 8 ) 01/31/2021 1:02 PM CDT Body Mass Index 26.7 01/31/2021 1:02 PM CDT documented in this encounter Progress Notes * Ana Colbert NP - 01/31/2021 1:00 PM CDT Images from the original note were not included. Gastroenterology Initial Visit Reason for Visit: Consult For Colonoscopy (pt is here for a consult, IBS flare up) History of Present Illness: Hans Pascual is a 55-year-old female being seen in clinic for referral by JASPREET MADSEN MD for screening colonoscopy. Bowel habits are every 3 days with pellets up to 3 times a day but only with miralax. Has IBS-C. Noconstipation or diarrhea, no hematochezia or melena. No weight loss. No nausea, vomiting, swallowing issues with kier drier foods like pill, nuts or pretzel with eating larger volume dysphagia, no abdominal pain but cramping prior to BM, occasional heart burn or acid reflux. Appropriate appetite. Notes she tries to stay Prior abdominal surgeries: CCY. 2 colonoscopies last one 11 years and internal hemorrhoids. No EGDsin the past. No prior h/o hepatitis, no prior tattoos, no prior blood transfusions, no drug use, no ETOH use, and no smoking now / ppd x 10 yrs and quit 1993 . No family history of GI/Colon Cancer. NSAID/Blood thinner use: Relafen for inflammatory RA - ROS: Review of Systems Constitutional: Negative for chills, fever and malaise/fatigue. Negative for decreased appetite HENT: Negative for sore throat. Eyes: Glasses Respiratory: Negative for shortness of breath. Cardiovascular: Negative for chest pain and leg swelling. Gastrointestinal: Refer to HPI. Genitourinary: Going to charge histotechnologist for dyspurenia and is on estrogen cream. Postmenopausal 2012 Musculoskeletal: Positive for joint pain (Embrel and MTx once a week for RA most joints effected). Neurological: Negative for dizziness, seizures and headaches. Endo/Heme/Allergies: Does not bruise/bleed easily. Psychiatric/Behavioral: Positive for depression. Negative for suicidal ideas. The patient is nervous/anxious and has insomnia. Medications and counseling working well. Medications: Current Outpatient Medications: ??? ALPRAZolam 0.25 [...] daily., Disp: 30 tablet, Rfl: 2 ??? GTR-ZZS-Tifanmz E (OMEGA-3 COMPLEX) 192-251-11 MG-MG-UNIT Cap, Take [...] by mouth daily., Disp: , Rfl: ??? Na sulfate-K sulfate-Mg sulfate (SUPREP BOWEL PREP KIT) 17.5-3.13-1.6 GM/177ML Solution, Take 177 mLs by mouth every 12 (twelve) hours. Take as directed by instruction sheet., Disp: 354 mL, Rfl: 0 ??? nabumetone 500 MG tablet, Take 2 tablets by mouth 2 (two) times daily., Disp: , Rfl: ??? polyethylene glycol (MIRALAX) packet, Take 1 packet by mouth daily as needed., Disp: , Rfl: ??? valACYclovir 1 g tablet, as needed. , Disp: , Rfl: ??? Albuterol Sulfate (PROAIR RESPICLICK) 108 (90 Base) MCG/ACT AEROSOL POWDER, BREATH ACTIVATED, Inhale 2 puffs into the lungs 4 (four) times daily as needed., Disp: , Rfl: ??? triamcinolone 0.1 % ointment, , Disp: , Rfl: Allergies: Allergies Allergen Reactions ??? Levofloxacin Hallucinations, Nausea Only, Nausea and Vomiting and Other (see comment) hallucinations Other reaction(s): Other hallucinations Medical History: Past Medical History: Diagnosis Date ??? Anxiety ??? Inflammatory arthritis Surgical History: Past Surgical History: Procedure Laterality Date ??? CHOLECYSTECTOMY ??? COLONOSCOPY AH 9 yrs. ??? LAMINECTOMY,LUMBAR ??? SEPTOPLASTY Social History: Social History Tobacco Use ??? Smoking status: Former Smoker Packs/day: 0.25 Years: 4.00 Pack years: 1.00 Types: Cigarettes Quit date: 1989 Years since quittin.2 ??? Smokeless tobacco: Never Used ??? Tobacco comment: socially Substance Use Topics ??? Alcohol use: No Frequency: Never ??? Drug use: No Family History: Family History Problem Relation Name Age of Onset ??? COPD Mother ??? Other (mva) Father PE: Filed Vitals: 01/31/21 1302 BP: 110/66 Pulse: 65 Resp: 18 Temp: 98.6 ??F (37 ??C) TempSrc: Temporal SpO2: 98% Weight: 79.7 kg (175 lb 9.6 oz) Height: 5' 8 (1.727 m) Physical Exam Constitutional: General: She is not in acute distress. Appearance: Normal appearance. She is well-developed. She is not ill-appearing. Cardiovascular: Rate and Rhythm: Normal rate and regular rhythm. Pulmonary: Effort: Pulmonary effort is normal. No respiratory distress. Breath sounds: Normal breath sounds. Abdominal: General: Bowel sounds are normal. Palpations: Abdomen is soft. Tenderness: There is no abdominal tenderness. Musculoskeletal: Right lower leg: No edema. Left lower leg: No edema. Skin: General: Skin is warm and dry. Neurological: Mental Status: She is alert and oriented to person, place, and time. Psychiatric: Behavior: Behavior normal. Labs Reviewed: No results found for: WBC, RBC, HGB, HCT, RDW, PLT, NA, K, CL, AGAP, GLU, BUN, CR, GFRNON, GFR, CA,MAGNESIUM, ALB, ALT, AST, ALKP Endoscopic Results Reviewed: 2009 colonoscopy per patient only findings was internal hemorrhoids and some inflammation . Was told to repeat in 10 years. Unsure of who the provider was or the location. Diagnoses/Impression: Pharyngoesophageal dysphagia (primary encounter diagnosis) Heartburn Encounter for screening colonoscopy Constipation, unspecified constipation type 1. Average colon cancer risk: Patient is overdue for screening colonoscopy. She does note she has IBS with concentrated constipation. She does have a great deal of strengthening and very rare bright red blood per rectum on the tissue paper. 2. Constipation: Patient notes she takes MiraLAX about every 3 days and without this she would not have a bowel movement. She does have pellet-like stools and was informed that she had IBS previously. 3. Pharyngoesophageal dysphagia: Primarily with dry foods, large pills. Patient does have occasional nausea but denies any vomiting to clear food bolus. Will evaluate with EGD due to the occurrence of this as well as GERD symptoms. 4. GERD: Patient does get heartburn and some acid reflux. Will initiate famotidine 20 mg twice daily as needed to assist with symptom control. 5. Comorbid Conditions: Anxiety, RA seronegative Recommendations and Plan: ?? Schedule diagnositic EGD pharyngoesophageal dysphagia and reflux and screening colonoscopy ?? Suprep split prep ?? Famotidine 20 mg twice daily as needed ?? Discussed with patient regular routine use of MiraLAX initiating with a cleanout and continued ongoing 1-2 capful of MiraLAX daily to assist her with at least every 2 days of bowel movements. ?? It is recommended to consume 20-35 grams of fiber per day and at least 64 ounces/2 liters of water per day. ?? All questions answered ?? More recommendations to follow endoscopic evaluation, follow up 1 week post EGD and constipation. Orders placed this encounter: Orders Placed This Encounter ??? famotidine 20 MG tablet ??? Na sulfate-K sulfate-Mg sulfate (SUPREP BOWEL PREP KIT) 17.5-3.13-1.6 GM/177ML Solution Risks/Benefits/Options: Patient presented with risks (can include but are not limited to: discomfort, missing lesions, allergic or adverse reaction to the sedation, perforation of the bowel or upper GI tract which may require hospitalization and surgery, bleeding, infection, aspiration), benefits, and alternatives to the procedure(s) and are in agreement to proceed as planned. Ana Colbert NP 01/31/2021 documented in this encounter Plan of Treatment Upcoming Encounters Date Type Department Care Team (Late st Contact Info) Description 11/14/2024 8:00 AM LUBRICATION EQUIPMENT SERVICER Office Visit [facility] Multispecialty Care - [address], [address] [place] [phone] Montserrat Oliver NP [address] [place] [address] [place] [address] 12/06/2024 9:30 AM LUBRICATION EQUIPMENT SERVICER Appointment [facility] MRI [address] [place] [address] [place] [address] [facility]. [address] [place] [address] 03/02/2025 3:20 PM CDT Office Visit [facility] Family & Internal Medicine - [address] [phone] [place] [address] [facility]. [address] [place] [address] documented as of this encounter Visit Diagnoses Diagnosis Pharyngoesophageal dysphagia- Primary Dysphagia, pharyngoesophageal phase Heartburn Encounter for screening colonoscopy Special screening for malignant neoplasms, colon Constipation, unspecified constipation type documented in this encounter Additional Health Concerns Assessment Noted Time PHQ-9 Depression Total Score: 4 05/01/20 19 3:05 PM CDT documented as of this encounter Care Teams Senior Abap Developer Relationship Specialty Start Date End Date Jaspreet Madsen MD PCP - General INTERNAL MEDICINE 11/30/18 02/18/23 documented as of this encounter
--- OUTSIDE RECORDS SUMMARY | 2024-11-13 17:12 | XMS_ITS | Encounter Summary ---
Author Organization [facility] Address [address] [place] [address]. [place] [address] [place] [address] Care Team Providers Care Pigskin Trimmer Name Role Phone Jaspreet Pearl MD Primary Care Provider Felipe rangel Encounter Details Date Type Department Care Team (Latest Contact Info) Description 07/28/2022 Travel Social History Tobacco Use Types Packs/Day [...] Master's degree (e.g., MA, MS, Howard, MEd, PATTERN WORKER, KEKE) 12/21/2018 Comments No Sex and [...] st Contact Info) Description 11/14/2024 8:00 AM DRYWALL APPLICATION SUPERVISOR Office Visit [facility] Multispecialty Care - [facility] 3 [facility], [address] [place] [address] Montserrat Oliver NP 3 [facility] [address] [place] [address] 12/06/2024 9:30 AM DRYWALL APPLICATION SUPERVISOR Appointment [facility] Open MRI [address] [place] [address] [place] [address] [facility] [place] [phone] 03/02/2025 3:20 PM CDT Office Visit [facility] Family & Internal Medicine - [address] [phone] [place] [address] [facility] [place] [address] documented as of this encounter Visit Diagnoses Not on filedocumented in this encounter Additional Health Concerns Assessment Noted Time PHQ-9 Depression Total Score: 2 05/27/20 22 11:36 AM CDT documented as of this encounter Care Teams Pigskin Trimmer Relationship Specialty Start Date End Date Jaspreet Pearl MD PCP - General INTERNAL MEDICINE 11/30/18 02/18/23 documented as of this encounter
--- OUTSIDE RECORDS SUMMARY | 2024-11-13 17:12 | XMS_ITS | Encounter Summary ---
Author Organization [facility] Address [address] [place] [address]. [place] [address] [place] [address] Care Team Providers Care Tree Topper Name Role Phone Jaspreet Pearl MD Primary Care Provider Felipe rangel Encounter Details Date Type Department Care Team (Latest Contact Info) Description 01/31/2021 Travel Social History Tobacco Use Types Packs/Day [...] Master's degree (e.g., MA, MS, Howard, MEd, CHARTER AND TOUR BUS DRIVER, KEKE) 12/21/2018 Comments No Sex and Gender [...] (Late Contact Info) Description 11/14/2024 8:00 AM MANUFACTURING PLANT TECHNICIAN Office Visit [facility] Multispecialty Care - [facility] 3 [facility], [address] [place] [address] Montserrat Oliver NP 3 [facility] [address] [place] [address] 12/06/2024 9:30 AM MANUFACTURING PLANT TECHNICIAN Appointment [facility] Open MRI [address] [facility] [facility] [place] [address] [place] [address] [facility] [address] [place] [address] 03/02/2025 3:20 PM CDT Office Visit [facility] Family & Internal Medicine - [address] [phone] [place] [address] [facility]. [address] [place] [address] documented as of this encounter Visit Diagnoses Not on filedocumented in this encounter Additional Health Concerns Assessment Noted Time PHQ-9 Depression Total Score: 4 05/01/20 19 3:05 PM CDT documented as of this encounter Care Teams Tree Topper Relationship Specialty Start Date End Date Jaspreet Pearl MD PCP - General INTERNAL MEDICINE 11/30/18 02/18/23 documented as of this encounter
--- OUTSIDE RECORDS SUMMARY | 2024-11-13 17:12 | XMS_ITS | Encounter Summary ---
Author Organization [facility] Address [address] [place] [address]. [place], [place] [phone] [place] [address] Care Team Providers Care Rn Patient Services Name Role Phone Jaspreet Pearl MD Primary Care Provider U Kelsey Dey NP Primary Care Provider [phone] Dayanara Plaza MD Primary Care Provider [phone] Perez Cervantes MD Unavailable Adriana Ma MD Unavailable [phone] Encounter Details Date Type Department Care Team (Late st Contact Info) Description 02/25/[address] [facility] [address] [place] [address] [facility] Provider RE:pain Social History Tobacco Use Types Packs/Day Years [...] Master's degree (e.g., MA, MS, Howard, MEd, EXTENSION EDUCATOR, KEKE) 12/21/2018 Comments No Sex and Gender [...] st Contact Info) Description 11/14/2024 8:00 AM GEOPHYSICAL LABORATORY DIRECTOR Office Visit [facility] Multispecialty Care - [address], [address] [place] [phone] Montserrat Oliver NP [address] [place] [address] [place] [address] 12/06/2024 9:30 AM GEOPHYSICAL LABORATORY DIRECTOR Appointment [facility] Open MRI [address] [place] [address] [place] [address] [facility] [address] [place] [address] 03/02/2025 3:20 PM CDT Office Visit [facility] Family & Internal Medicine - [address] [phone] [place] [address] [facility] Darlene. [address] [place] [address] documented as of this encounter Visit Diagnoses Not on filedocumented in this encounter Additional Health Concerns Infection Onset Date Last Indicated Resolved Time COVID-19 Rule Out 03/14/2021 03/14/2021 03/15/2021 1:26 PM CDT COVID-19 Rule Out 04/03/2024 04/03/2024 04/03/2024 11:38 AM CDT Assessment Noted Time PHQ-9 Depression Total Score: 4 05/01/20 19 3:05 PM CDT documented as of this encounter Care Teams Rn Patient Services Relationship Specialty Start Date End Date Jaspreet Pearl MD PCP - General INTERNAL MEDICINE 11/30/18 02/18/23 Kelsey Kc, STEWARD/STEWARDESS BATH [address] [address] [place] [address] PCP - General Nurse Practitioner Family 02/19/23 02/28/23 [place] [address] [address] [place] [address] PCP - General FAMILY PRACTICE 03/01/23 Perez Cervantes MD [address] [phone] RHEUMATOLOGY 09/02/23 Adriana Ma MD [address] [place] [address] Referring Physician ALLERGY 09/02/23 documented as of this encounter
--- OUTSIDE RECORDS SUMMARY | 2024-11-13 17:12 | XMS_ITS | Encounter Summary ---
Author Organization [facility] Address [address] [place] [address]. [place], [place] [id number] [place] [address] Care Team Providers Care Drapery Head Former Name Role Phone Jaspreet Pearl MD Primary Care Provider U navailable Reason for Visit * Imaging (Routine) - Closed Specialty Diagnoses / Procedures Referred By Contac t Referred To Contact RADIOLOGY Diagnoses Visit for screening mammogram Procedures MG SCREENING W KRISTEN VICTORIANO DIGI Stalin Calderón MD [address] [address] Phone: tel: fax: Referral ID Status Reason Start Date Expiration Date Visits Re quested Visits Authorized [id number] Closed 10/07/2021 11/06/2022 1 1 Encounter Details Date Type Department Care Team (Latest Contact Info) Description 11/18/2021 4:17 PM TORCH CUTTER - 11/18/2021 11:59 PM [facility] Hospital Encounter [facility] Mammography [address] [place] [address] Stalin Calderón MD [address] [address] Discharge Disposition: Home or Self Care (Routine [...] have received? Master's degree (e.g., MA, MS, Hoawrd, MEd, CAUSTICISER, KEKE) 12/21/2018 Comments No Sex and Gender [...] Coronavirus / COVID-19? Yes 11/18/2021 4:16 PM TORCH CUTTER documented as of this encounter Medications at [...] BY MOUTH TWICE A DAY 180 tablet 11/11/2021 2 citalopram 10 MG tabletIndications: DURAN (generalized anxiety disorder) Take 1 tablet (10 mg total) by mouth daily. 90 tablet 1 05/02/2021 2 CITALOPRAM 10 MG tabletIndications: DURAN (generalized anxiety disorder) TAKE 1 TABLET (10 MG TOTAL) BY MOUTH DAILY. 90 tablet 1 11/21/2021 2 ISO-PPO-Oukfubc E 192-251-11 MG-MG-UNIT Cap Take 1 capsule by mouth daily. 3 dicyclomine 20 MG tabletIndications: Irritable bowel syndrome with both constipation and diarrhea Take 1 tablet (20 mg total) by mouth every 6 (six) hours. 120 tablet 12/21/2018 2 fexofenadine 180 MG tablet Take 1 tablet (180 mg total) by mouth. 3 folic acid 1 MG tablet Take 1 tablet (1 mg total) by mouth daily. 06/01/2014 3 IMVEXXY MAINTENANCE PACK 10 MCG INSERT 04/16/2021 2 montelukast 10 MG tabletIndications: Seasonal allergies Take 1 tablet (10 mg total) by mouth every evening. 90 tablet 1 05/02/2021 2 MONTELUKAST 10 MG tabletIndications: Seasonal allergies TAKE 1 TABLET BY MOUTH DAILY 90 tablet 1 11/21/2021 2 multivitamin tablet Take 2 tablets by mouth daily. 4 nabumetone 500 MG tablet 2 (two) times daily. 02/23/2021 2 polyethylene glycol packet Take 240 mLs (1 packet total) by mouth daily as needed. 4 documented as of this encounter Plan of Treatment Upcoming Encounters Date Type Department Care Team (Late st Contact Info) Description 11/14/2024 8:00 AM TORCH CUTTER Office Visit [facility] Multispecialty Care - [facility] 3 [facility], Suite [facility] [place] [address] Montserrat Oliver NP 3 [facility] [address] [place] [address] 12/06/2024 9:30 AM TORCH CUTTER Appointment [facility] Open MRI [address] [place] [address] [place] [address] [place] [address] 03/02/2025 3:20 PM CDT Office Visit [facility] Family & Internal Medicine - [address] [phone] [place] [address] [place] [address] documented as of this encounter Procedures Procedure Name Priority Date/Time Associated Diagnosis Comments MG SCREENING W KRISTEN VICTORIANO DIGI Routine 11/18/2021 4:34 PM TORCH CUTTER Visit for screening mammogram documented in this encounter Results * MG SCREENING W KRISTEN VICTORIANO DIGI (11/18/2021 4:34 PM TORCH CUTTER) Anatomical Region Laterality Modality Breast Bilateral Mammography 11/18/2021 6:23 PM TORCH CUTTER Impressions 11/18/2021 6:23 PM TORCH CUTTER IMPRESSION: No suspicious change since the previous exams. Recommendation: 1: Routine Screening ??Bilateral ??in 1 Year Assessment: ACR BI-RADS 2 - BENIGN FINDING(S) Ordered By: STALIN CALDERÓN Interpreted By: Lee Saldivar MD, 11/18/2021 6:23 PM Narrative 11/18/2021 6:23 PM TORCH CUTTER Examination: Digital screening mammogram with CAD. Clinical history: Asymptomatic patient presents for routine screening. Comparison: 07/11/2020, 05/31/2019, 06/23/2018, 06/22/2017. Technique: Bilateral digital mammograms. The exam was interpreted with the use of a computer-aided detection (CAD) system. ??Additional 3-D tomosynthesis images were acquired. Tissue density: The breast tissue contains scattered fibroglandular densities. Findings: The breast tissue contains scattered fibroglandular densities. ?? Benign-appearing calcification noted. No suspicious mass, microcalcification or area of architectural distortion can be identified. From a mammographic standpoint, routine followup in one year would seem adequate. us Stalin Calderón MD MAMMO Final Resu lt documented in this encounter Visit Diagnoses Not on filedocumented in this encounter Additional Health Concerns Assessment Noted Time PHQ-9 Depression Total Score: 0 05/02/20 21 2:11 PM CDT documented as of this encounter Care Teams Drapery Head Former Relationship Specialty Start Date End Date Jaspreet Pearl MD PCP - General INTERNAL MEDICINE 11/30/18 02/18/23 documented as of this encounter
--- OUTSIDE RECORDS SUMMARY | 2024-11-13 17:12 | XMS_ITS | Encounter Summary ---
Author Organization [facility] Address [address] [place] [address]. [place] [address] [place] [address] Care Team Providers Care Janitor Cleaner Name Role Phone Jaspreet Pearl MD Primary Care Provider Felipe rangel Encounter Details Date Type Department Care Team (Latest Contact Info) Description 06/28/2021 Scan [facility] HEALTH INFO SRVCS Scanned, Documents Social History [...] Master's degree (e.g., MA, MS, Howard, MEd, CLAY PIGEON LOADER, KEKE) 12/21/2018 Comments No Sex and Gender [...] st Contact Info) Description 11/14/2024 8:00 AM AUTOMATIC SILK SCREEN PRINTER Office Visit [facility] Multispecialty Care - [facility] 3 [facility], [address] [place] [address] Montserrat Oliver NP 3 [facility] [address] [place] [address] 12/06/2024 9:30 AM AUTOMATIC SILK SCREEN PRINTER Appointment [facility] Open MRI [address] [place] [address] [place] [address] [facility]. [address] [place] [phone] 03/02/2025 3:20 PM CDT Office Visit [facility] Family & Internal Medicine - [address] [phone] [place] [address] [facility]. [address] [place] [address] documented as of this encounter Visit Diagnoses Not on filedocumented in this encounter Additional Health Concerns Assessment Noted Time PHQ-9 Depression Total Score: 0 05/02/20 21 2:11 PM CDT documented as of this encounter Care Teams Janitor Cleaner Relationship Specialty Start Date End Date Jaspreet Pearl MD PCP - General INTERNAL MEDICINE 11/30/18 02/18/23 documented as of this encounter
--- OUTSIDE RECORDS SUMMARY | 2024-11-13 17:12 | XMS_ITS | Encounter Summary ---
Author Organization [facility] Address [address] [place] [address]. [place], [place] [address] [place] [address] Care Team Providers Care Supervisor Beehive Kiln Name Role Phone Jaspreet Pearl MD Primary Care Provider U juan carlos Reason for Visit * Reason Comments New Patient Left hand * Consultation/Treatment (Routine) - Closed Specialty Diagnoses / Procedures Referred By Contac t Referred To Contact ORTHOPAEDIC SURGERY / ORTHOPAEDICS Diagnoses Trigger ring finger of right hand Jaspreet Pearl MD [address], [place] [address] [place] [address] Phone: tel: fax: Referral ID Status Reason Start Date Expiration Date V isits Requested Visits Authorized [id number] Closed Specialty Services 05/02/2021 06/01/2022 100 100 Encounter Details Date Type Department Care Team (Latest Contact Info) Description 06/23/2021 8:20 AM CDT Office Visit [facility] - [facility] 3 [facility] [address] [place] [phone] Clark Strange MD [address] [place] [address] New Patient (Left hand ) Social History Tobacco Use Types Packs/Day [...] Master's degree (e.g., MA, MS, Howard, MEd, SOILED LINEN DISTRIBUTOR, KEKE) 12/21/2018 Comments No Sex and Gender [...] Sign Reading Time Taken Comments Blood Pressure 94/60 06/23/2021 8:18 AM CDT Pulse 59 06/23/2021 8:18 AM CDT Temperature - - Respiratory Rate - - Oxygen Saturation - - Inhaled Oxygen Concentration - - Weight 78.5 kg (173 lb) 06/23/2021 8:18 AM CDT Height 172.7 cm (5' 8 ) 06/23/2021 8:18 AM CDT Body Mass Index 26.3 06/23/2021 8:18 AM CDT documented in this encounter Progress Notes * Clark Strange MD - 06/23/2021 8:20 AM CDT Images from the original note were not included. OFFICE VISIT SUBJECTIVE Reason for Visit: New Patient (Left hand ) History of Present Illness: Hans Pascual is a RHD female complaining of few months history of nodular scar like growing on palmar aspect of left hand along ring and middle finger metacarpal. Overtime nodule evolved into ascar like cord. Pt describes no associated finger contracture, nor restrain of ROM. Denies associated pain. Denies numbness/tingling, and local inflammatory symptoms associated with lesion. Pt denies local trauma. Reports similar previous lesions on hands/feets. Patient describes concern about lesion and is seeking assessment and counseling regarding implications and treatment options. Previous treatments: None No history of trauma. No other complaints. Review of Systems: Review of Systems Constitutional: Negative. HENT: Negative. Eyes: Negative. Respiratory: Negative. Cardiovascular: Negative. Gastrointestinal: Negative. Genitourinary: Negative. Musculoskeletal: Positive for joint pain. Skin: Negative. Neurological: Negative. Endo/Heme/Allergies: Negative. Psychiatric/Behavioral: Negative. History: Past Medical History: Diagnosis Date ??? Anxiety ??? Heart murmur ??? IBS (irritable bowel syndrome) ??? Inflammatory arthritis ??? RA (rheumatoid arthritis) (CMS/HCC) ??? Wears glasses Past Surgical History: Procedure Laterality Date ??? CHOLECYSTECTOMY ??? COLONOSCOPY AH 9 yrs. ??? COLONOSCOPY N/A 03/17/2021 COLONOSCOPY-NORMAL performed by Niall Matute MD at [facility] ??? LAMINECTOMY,LUMBAR ??? SEPTOPLASTY Family History Problem Relation Name Age of Onset ??? COPD Mother ??? Other (mva) Father Social History Tobacco Use ??? Smoking status: Former Smoker Packs/day: 0.25 Years: 10.00 Pack years: 2.50 Types: Cigarettes Quit date: 1989 Years since quittin.6 ??? Smokeless tobacco: Never Used ??? Tobacco comment: off and on for 10 years from 84-94 with long periods of none at all Substance Use Topics ??? Alcohol use: No ??? Drug use: No Medications and Allergies: Current Outpatient Medications: ??? ALPRAZolam 0.25 MG [...] daily., Disp: 90 tablet, Rfl: 1 ??? SBP-ABL-Atavtfb E (OMEGA-3 COMPLEX) 192-251-11 MG-MG-UNIT Cap, Take 1 capsule by mouth daily., Disp: , Rfl: ??? dicyclomine 20 MG tablet, Take 1 tablet (20 mg total) by mouth every 6 (six) hours. (Patient taking differently: Take 20 mg by mouth every 6 (six) hours as needed. ), Disp: 120 tablet, Rfl: 0 ??? etanercept (ENBREL) 50 MG/ML injection, Inject [...] , Rfl: ??? nabumetone 500 MG tablet, 2 (two) times daily. , Disp: , Rfl: ??? polyethylene glycol (MIRALAX) packet, Take 1 packet by mouth daily as needed., Disp: , Rfl: ??? valACYclovir 1 g tablet, as needed. , Disp: , Rfl: ??? estradiol 0.1 MG/GM vaginal cream, as needed. , Disp: , Rfl: Allergies Allergen Reactions ??? Levofloxacin Nausea and Vomiting, Nausea Only, Hallucinations and Other (see comment) hallucinations Other reaction(s): Other hallucinations OBJECTIVE Vital Signs: Filed Vitals: 06/23/21 0818 BP: 94/60 Pulse: 59 Weight: 78.5 kg (173 lb) Height: 5' 8 (1.727 m) Body mass index is 26.3 kg/m??. Physical Exam: Physical Exam Constitutional: She is oriented to person, place, and time. She appears well- developed and well-nourished. HENT: Head: Normocephalic. Eyes: EOM are normal. Lymph nodes: No palpable lymphadenopathy involving bilateral upper extremities. Cardiovascular: Intact distal pulses. Pulmonary/Chest: Effort normal. No respiratory distress. Neurological: She is alert and oriented to person, place, and time. Psychiatric: She has a normal mood and affect. Upper Extremity Exam: Right Upper Extremity Upper Arm : no tenderness, no swelling, no masses, no deformities Elbow : Inspection/Palpation: no tenderness, no swelling, no erythema, no induration, no bruising. All muscle compartments soft, no joint effusion present, no deformities noted, no masses present, no arthritic changes. Negative lateral/medial epicondylitis provocation test Range of Motion: Active and Passive ROM within functional range for age/activity level Strength: flexion and extension 5/5 Stability: no joint instability on provocative testing Tests/Signs: Tinel's and compression sign negative over cubital tunnel Forearm: no tenderness to palpation, no swelling, no forearm deformities noted, no masses present Wrist: Inspection/Palpation: no tenderness, no swelling, no erythema, no induration, no bruising. All muscle compartments soft, no joint effusion present, no deformities noted, no masses present, no arthritic changes, no crepitus noted in wrist/carpus Range of Motion: Active and Passive ROM within functional range for age/activity level Strength: flexion and extension and lateral deviation 5/5 Stability: no joint instability on provocative testing Tests/Signs: Tinel's and compression sign negative over carpal tunnel, Adam test negative Hand : Inspection/Palpation: no tenderness, no swelling, no erythema, no induration, no bruising. All muscle compartments soft, no joint effusion present, no deformities noted, no masses present, no arthritic changes. No crepitus hand/fingers on ROM testing, no deformities of hand or fingers Range of Motion: Active and passive ROM within functional range for age/activity level Strength: all muscles 5/5 Stability: no joint instability on provocative testing Sensation: hand neuro-vascular exam intact Muscle Tone: tone normal Muscle Bulk: muscle bulk normal Skin: no skin lesions or discoloration Vascular Exam: normal capillary refill, radial artery pulse 2, ulnar artery pulse 2, normal finger capillary refill Left Upper Extremity Upper Arm : no tenderness, no swelling, no masses, no deformities Elbow : Inspection/Palpation: no tenderness, no swelling, no erythema, no induration, no bruising. All muscle compartments soft, no joint effusion present, no deformities noted, no masses present, no arthritic changes. Negative lateral/medial epicondylitis provocation test Range of Motion: Active and Passive ROM within functional range for age/activity level Strength: flexion and extension 5/5 Stability: no joint instability on provocative testing Tests/Signs: Tinel's and compression sign negative over cubital tunnel Forearm: no tenderness to palpation, no swelling, no forearm deformities noted, no masses present Wrist: Inspection/Palpation: no tenderness, no swelling, no erythema, no induration, no bruising. All muscle compartments soft, no joint effusion present, no deformities noted, no masses present, no arthritic changes, no crepitus noted in wrist/carpus Range of Motion: Active and Passive ROM within functional range for age/activity level Strength: flexion and extension and lateral deviation 5/5 Stability: no joint instability on provocative testing Tests/Signs: Tinel's and compression sign negative over carpal tunnel, Adma test negative Hand : Inspection/Palpation: Classic looking dupuytrens nodule along ring/middle finger metacarpal with noassociated contracture nor signs of mass effect. no tenderness, no swelling, no erythema, no induration, no bruising. All muscle compartments soft, no joint effusion present, no deformities noted, no masses present, no arthritic changes. No crepitus hand/fingers on ROM testing, no deformities of hand or fingers Range of Motion: Active and passive ROM within functional range for age/activity level Strength: all muscles 5/5 Stability: no joint instability on provocative testing Sensation: hand neuro-vascular exam intact Muscle Tone: tone normal Muscle Bulk: muscle bulk normal Skin: no skin lesions or discoloration Vascular Exam: normal capillary refill, radial artery pulse 2, ulnar artery pulse 2, normal finger capillary refill Recent Imaging: No image results found. ASSESSMENT Hans was seen today for new patient. Diagnoses and all orders for this visit: Dupuytren's contracture PLAN Treatment/Counselling: Etiology, pathophysiology and natural history of Dupuytren's disease was discussed with the patient. Treatment options from doing nothing and accepting deformity and dysfunction, splinting and OT, collagenase injections, percutaneous cord release, open partial/total fasciectomy, use of digit-widget to extend the PIP joint before fasciectomy, were all discussed with the patient including risks, benefits and indications. Extensive postoperative rehab was also explained. Surgical risks including but not limited to, infection, bleeding, injury to surrounding structures,cicatrix, recurrence, joint stiffness, chronic swelling, chronic numbness, loss of digit, need of further surgery, wound healing problems and need of skin grafts and or wound care, need of further surgery, were all discussed. Patient voices his understanding. Procedure: CLARK STRANGE MD 06/23/2021 Cc. MD Jaspreet MENDIETA MD documented in this encounter Plan of Treatment Upcoming Encounters Date Type Department Care Team (Late st Contact Info) Description 11/14/2024 8:00 AM RACING MECHANIC Office Visit [facility] Multispecialty Care - [facility] 3 [facility], [address] [place] [phone] Montserrat Oliver NP 3 [facility] [address] [place] [address] 12/06/2024 9:30 AM RACING MECHANIC Appointment [facility] Open MRI [address] [place] [address] [place] [address] [facility] [address] [place] [phone] 03/02/2025 3:20 PM CDT Office Visit [facility] Family & Internal Medicine - [address] [phone] [place] [address] [address] [place] [address] documented as of this encounter Visit Diagnoses Diagnosis Dupuytren's contracture- Primary Contracture of palmar fascia documented in this encounter Additional Health Concerns Assessment Noted Time PHQ-9 Depression Total Score: 0 05/02/20 21 2:11 PM CDT documented as of this encounter Care Teams Supervisor Beehive Kiln Relationship Specialty Start Date End Date Jaspreet Pearl MD PCP - General INTERNAL MEDICINE 11/30/18 02/18/23 documented as of this encounter
--- OUTSIDE RECORDS SUMMARY | 2024-11-13 17:12 | XMS_ITS | Encounter Summary ---
Author Organization [facility] Address [address] [place] [address]. [place], [place] [phone] [place] [address] Care Team Providers Care Final Assembler Boat Name Role Phone Jaspreet Pearl MD Primary Care Provider U juan carlos Reason for Visit * Reason Onset Date Comments Question 02/24/2021 Encounter Details Date Type Department Care Team (Late st Contact Info) Description 02/24/[address] [facility] Family & Internal Medicine [address] [phone] Jaspreet Pearl MD Question Social History Tobacco Use Types Packs/Day [...] Master's degree (e.g., MA, MS, Howard, MEd, SECURITY INVESTIGATOR, KEKE) 12/21/2018 Comments No Sex and Gender [...] Progress Notes * Barb Vital RN - 02/25/2021 11:03 AM CDT MD recommended for patient to wait another week-and then if not improved with consider an MRI-attempted to reach patient but mailbox full and cant leave message-will send message via [facility] * Barb Vital RN - 02/24/2021 11:44 AM CDT Printed and will route to MD * Asmita Amaya - 02/24/2021 11:23 AM CDT PT called stating her knee is still hurting it is better but not 100% she is still hurting and he told her to call if it was not better please advise she is not sure if he wants her to have an MRI orwait another week c/b # [phone] documented in this encounter Plan of Treatment Upcoming Encounters Date Type Department Care Team (Late st Contact Info) Description 11/14/2024 8:00 AM RN REGISTRY Office Visit [facility] Mult[facility] Care - [facility] 3 [facility], [address] [place] [address] Montserrat Oliver NP 3 [facility] [address] [place] [address] 12/06/2024 9:30 AM RN REGISTRY Appointment [facility] Open MRI [address] [place] [address] [place] [address] [address] [place] [address] 03/02/2025 3:20 PM CDT Office Visit [facility] Family & Internal Medicine - [address] [phone] [place] [address] [place] [address] documented as of this encounter Visit Diagnoses Not on filedocumented in this encounter Additional Health Concerns Assessment Noted Time PHQ-9 Depression Total Score: 4 05/01/20 19 3:05 PM CDT documented as of this encounter Care Teams Final Assembler Boat Relationship Specialty Start Date End Date Jaspreet Pearl MD PCP - General INTERNAL MEDICINE 11/30/18 02/18/23 documented as of this encounter
--- OUTSIDE RECORDS SUMMARY | 2024-11-13 17:12 | XMS_ITS | Encounter Summary ---
Author Organization [facility] Address [address] [place] [address]. [place] [address] [place] [address] Care Team Providers Care Personnel Research Psychologist Name Role Phone Jaspreet Pearl MD Primary Care Provider Felipe waydylan Encounter Details Date Type Department Care Team (Latest Contact Info) Description 11/04/2021 Travel Social History Tobacco Use Types Packs/Day [...] Master's degree (e.g., MA, MS, Howard, MEd, AGGREGATE CONVEYOR OPERATOR, KEKE) 12/21/2018 Comments No Sex and [...] have Coronavirus / COVID-19? No / Unsure 11/04/2021 11:29 AM NON LINEAR EDITOR documented as of this encounter Plan of Treatment Upcoming Encounters Date Type Department Care Team (Late st Contact Info) Description 11/14/2024 8:00 AM NON LINEAR EDITOR Office Visit [facility] Mult[facility]pecialty Care - [facility] 3 [facility], [address] [place] [address] Montserrat Oliver NP 3 [facility] [address] [place] [address] 12/06/2024 9:30 AM NON LINEAR EDITOR Appointment [facility] Open MRI [address] [place] [address] [place] [address] [facility]. [address] [place] [address] 03/02/2025 3:20 PM CDT Office Visit [facility] Family & Internal Medicine - [address] [phone] [place] [address] [facility]. [address] [place] [address] documented as of this encounter Visit Diagnoses Not on filedocumented in this encounter Additional Health Concerns Assessment Noted Time PHQ-9 Depression Total Score: 0 05/02/20 21 2:11 PM CDT documented as of this encounter Care Teams Personnel Research Psychologist Relationship Specialty Start Date End Date Jaspreet Pearl MD PCP - General INTERNAL MEDICINE 11/30/18 02/18/23 documented as of this encounter
--- OUTSIDE RECORDS SUMMARY | 2024-11-13 17:12 | XMS_ITS | Encounter Summary ---
Author Organization [facility] Address [address] [place] [address]. [place] [address] [place] [address] Care Team Providers Care Station Mechanic Name Role Phone Jaspreet Pearl MD Primary Care Provider Felipe rangel Encounter Details Date Type Department Care Team (Latest Contact Info) Description 01/06/2023 Travel Social History Tobacco Use Types Packs/Day [...] Master's degree (e.g., MA, MS, Howard, MEd, LABORER [employer], KEKE) 12/21/2018 Comments No Sex and Gender [...] suspected to have Coronavirus/COVID-19? No / Unsure 01/06/2023 2:46 PM MIXING MACHINE TENDER CORK GASKET documented as of this encounter Plan of Treatment Upcoming Encounters Date Type Department Care Team (Late st Contact Info) Description 11/14/2024 8:00 AM MIXING MACHINE TENDER CORK GASKET Office Visit [facility] Multispecialty Care - [facility] 3 [facility], [address] [place] [address] Montserrat Oliver NP 3 [facility] [address] [place] [address] 12/06/2024 9:30 AM MIXING MACHINE TENDER CORK GASKET Appointment [facility] Open MRI [address] [place] [address] [place] [address] [facility]. [address] [place] [phone] 03/02/2025 3:20 PM CDT Office Visit [facility] Family & Internal Medicine - [address] [address] [place] [address] [facility]. [address] [place] [phone] documented as of this encounter Visit Diagnoses Not on filedocumented in this encounter Additional Health Concerns Assessment Noted Time PHQ-9 Depression Total Score: 2 05/27/20 22 11:36 AM CDT documented as of this encounter Care Teams Station Mechanic Relationship Specialty Start Date End Date Jaspreet Pearl MD PCP - General INTERNAL MEDICINE 11/30/18 02/18/23 documented as of this encounter
--- OUTSIDE RECORDS SUMMARY | 2024-11-13 17:12 | XMS_ITS | Encounter Summary ---
Author Organization [facility] Address [address] [place] [address]. [place] [address] [place] [address] Care Team Providers Care Director Of Maintenance Name Role Phone Jaspreet Pearl MD Primary Care Provider Felipe waydylan Encounter Details Date Type Department Care Team (Latest Contact Info) Description 11/01/2021 Travel Social History Tobacco Use Types Packs/Day Years Used Date Smoking Tobacco: Former Cigarettes 0.3 10 1 - 1989 Smokeless Tobacco: Never Comments:off and [...] Master's degree (e.g., MA, MS, Howard, MEd, SUBSTANCE ABUSE PREVENTION COORDINATOR, KEKE) 12/21/2018 Comments No Sex and [...] have Coronavirus / COVID-19? No / Unsure 11/01/2021 10:24 AM CYCLE MANAGER documented as of this encounter Plan of Treatment Upcoming Encounters Date Type Department Care Team (Late st Contact Info) Description 11/14/2024 8:00 AM CYCLE MANAGER Office Visit [facility] Multispecialty Care - [facility] 3 [facility], [address] [place] [address] Montserrat Oliver NP 3 [facility] [address] [place] [address] 12/06/2024 9:30 AM CYCLE MANAGER Appointment [facility] Open MRI [address] [place] [address] [place] [address] [facility]. [address] [place] [phone] 03/02/2025 3:20 PM CDT Office Visit [facility] Family & Internal Medicine - [address] [address] [place] [address] [facility]. [address] [place] [address] documented as of this encounter Visit Diagnoses Not on filedocumented in this encounter Additional Health Concerns Assessment Noted Time PHQ-9 Depression Total Score: 0 05/02/20 21 2:11 PM CDT documented as of this encounter Care Teams Director Of Maintenance Relationship Specialty Start Date End Date Jaspreet Pearl MD PCP - General INTERNAL MEDICINE 11/30/18 02/18/23 documented as of this encounter
--- OUTSIDE RECORDS SUMMARY | 2024-11-13 17:12 | XMS_ITS | Encounter Summary ---
Author Organization [facility] Address [address] [place] [address]. [place] [address] [place] [address] Care Team Providers Care Grinder Gear Name Role Phone Jaspreet Pearl MD Primary Care Provider Felipe rangel Encounter Details Date Type Department Care Team (Latest Contact Info) Description 03/17/2021 Travel Social History Tobacco Use Types Packs/Day [...] Master's degree (e.g., MA, MS, Howard, MEd, ENDOCRINOLOGY PHYSICIAN, KEKE) 12/21/2018 Comments No Sex and Gender [...] (Late Contact Info) Description 11/14/2024 8:00 AM HOT CAR CHARGER Office Visit [facility] Multispecialty Care - [facility] 3 [facility], [address] [place] [address] Montserrat Oliver NP 3 [facility] [address] [place] [address] 12/06/2024 9:30 AM HOT CAR CHARGER Appointment [facility] Open MRI [address] [facility] [address] [place] [address] [facility] [place] [address] 03/02/2025 3:20 PM CDT Office Visit [facility] Family & Internal Medicine - [address] [phone] [place] [address] [facility]. [address] [place] [address] documented as of this encounter Visit Diagnoses Not on filedocumented in this encounter Additional Health Concerns Assessment Noted Time PHQ-9 Depression Total Score: 4 05/01/20 19 3:05 PM CDT documented as of this encounter Care Teams Grinder Gear Relationship Specialty Start Date End Date Jaspreet Pearl MD PCP - General INTERNAL MEDICINE 11/30/18 02/18/23 documented as of this encounter
--- OUTSIDE RECORDS SUMMARY | 2024-11-13 17:12 | XMS_ITS | Encounter Summary ---
Author Organization [facility] Address On license of [facility] [place] [address] [place] [address] Care Team Providers Care Bible Reader Name Role Phone Jaspreet Pearl MD Primary Care Provider U Kelsey Dey NP Primary Care Provider [phone] Dayanara Plaza MD Primary Care Provider Perez Cervantes MD Unavailable Adriana Ma MD Unavailable [phone] Encounter Details Date Type Department Care Team (Late st Contact Info) Description 03/12/2021 Prep for Procedure [facility] [place], [place] [phone] Niall Matute MD [address] [phone] Social History Tobacco Use Types Packs/Day Years [...] Master's degree (e.g., MA, MS, Howard, MEd, MESSAGING ARCHITECT, KEKE) 12/21/2018 Comments No Sex and [...] Contact Info) Description 11/14/2024 8:00 AM PLUG GROWER Office Visit [facility] Multispecialty Care - [facility] 3 [facility], [address] [place] [address] Montserrat Oliver NP 3 [facility] [address] [place] [address] 12/06/2024 9:30 AM PLUG GROWER [address] [facility] Open MRI [address] [place] [address] [place] [address] [facility]. [address] [place] [phone] 03/02/2025 3:20 PM CDT Office Visit [facility] Family & Internal Medicine - [address] [address] [place] [address] [facility]. [address] [place] [phone] documented as of this encounter Results * PRE-SURGICAL/PRE-PROCEDURE CORONAVIRUS (COVID 19) (03/14/2021 11:20 AM CDT) CORONAVIRUS SARS COV 2 PCR (RESP) NOT DETECTED NOT DETECTED 03/15/2021 1:26 PM CDT [facility] Comment: A Not Detected (negative) test result for this test means that SARS-CoV-2 RNA was not present in the specimen above the limit of detection. A negative result does not rule out the possibility of COVID-19 and should not be used as the sole basis for treatment or patient management decisions. If COVID-19 is still suspected, based on exposure history together with other clinical findings, re-testing should be considered in consultation with public health authorities. Laboratory test results should always be considered in the context of clinical observations and epidemiological data in making a final diagnosis and patient management decisions. This patient specimen was tested using an FDA EUA pooling method. Negative results from pooled testing should not be treated as definitive. If the patient's clinical signs and symptoms are inconsistent with a negative result or results are necessary for patient management, then the patient should be considered for individual testing. In very rare cases, estimated at about 8 in 1,000 (0.8%) or less patient specimens with low viral loads may not be detected in sample pools due to the decreased sensitivity of pooled testing. Please review the Fact Sheets and FDA authorized labeling available for health care providers and patients using the following websites: https://www.PayUsLessRx.com.com/home/Covid-19/HCP/rc- jsvc-hvr5-evzb-sheet.html https://www.[employer]UsLessRx.com.[employer]/home/Covid-19/Patients/ xt-imql-zih7-fact-sheet.html This test has been authorized by the FDA under an Emergency Use Authorization (EUA) for use by authorized laboratories. Due to the current public health emergency, [facility] is receiving a high volume of samples from a wide variety of swabs and media for COVID-19 testing. In order to serve patients during this public health crisis, samples from appropriate clinical sources are being tested. Negative test results derived from specimens received in non-commercially manufactured viral collection and transport media, or in media and sample collection kits not yet authorized by FDA for COVID-19 testing should be cautiously evaluated and the patient potentially subjected to extra precautions such as additional clinical monitoring, including collection of an additional specimen. Methodology: ??Nucleic Acid Amplification Test (NAAT) includes RT-PCR or TMA Additional information about COVID-19 can be found at the [facility] website: www.[facility].com/Covid19. Test performed at [facility] [address] [place], [place] ??[phone] Director: ASPEN HOLLINGSWORTH DO,MPH FIRST TEST NO 03/14/2021 12:08 PM CDT [facility] EMPLOYED IN HEALTHCARE NO 03/14/2021 12:08 PM CDT [facility] SYMPTOMATIC DEFINED BY CDC NO 03/14/2021 12:08 PM CDT [facility] DATE OF SYMPTOM ONSET NO 03/14/2021 12:48 PM CDT [facility] HOSPITALIZATION STATUS NO 03/14/2021 12:08 PM CDT [facility] PATIENT IN ICU NO 03/14/2021 12:08 PM CDT [facility] RESIDENT OF [facility] NO 03/14/2021 12:08 PM CDT [facility] NO 03/14/2021 12:48 PM CDT [facility] PATIENT'S RACE WHITE OR 03/14/2021 12:08 PM CDT [facility] ETHNICITY NONHISPANIC 03/14/2021 12:08 PM CDT [facility] SOURCE (QST) NASOPHARYNGEAL SWAB 03/14/2021 12:08 PM CDT [facility] NASOPHARYNGEAL SWAB / Unknown 03/14/2021 11:20 AM CDT Niall Matute MD MICROBIOLOGY - GENERAL ORDERABLE S Final Result [facility] [address] [place] [address], [place] [phone] [facility] [address] [place] [address], documented in this encounter Visit Diagnoses Diagnosis Pharyngoesophageal dysphagia- Primary Dysphagia, pharyngoesophageal phase documented in this encounter Additional Health Concerns Infection Onset Date Last Indicated Resolved Time COVID-19 Rule Out 03/14/2021 03/14/2021 03/15/2021 1:26 PM CDT COVID-19 Rule Out 04/03/2024 04/03/2024 04/03/2024 11:38 AM CDT Assessment Noted Time PHQ-9 Depression Total Score: 4 05/01/20 3:05 PM CDT documented as of this encounter Care Teams Bible Reader Relationship Specialty Start Date End Date Jaspreet Pearl MD PCP - General INTERNAL MEDICINE 11/30/18 02/18/23 [place] [address] [address] [place] [address] PCP - General Nurse Practitioner Family 02/19/23 02/28/23 [place] [address] [address] [place] [address] PCP - General FAMILY PRACTICE 03/01/23 Perez Cervantes MD [address] [place] [address] [place] [id number] RHEUMATOLOGY 09/02/23 Adriana Ma MD [address] [place] [address] Referring Physician ALLERGY 09/02/23 documented as of this encounter
--- OUTSIDE RECORDS SUMMARY | 2024-11-13 17:12 | XMS_ITS | Encounter Summary ---
Author Organization [facility] Address [address] [place] [address]. [place], [place] [id number] [place] [address] Care Team Providers Care Distribution Operations Manager Name Role Phone Jaspreet Madsen MD Primary Care Provider Felipe rangel Reason for Visit * Reason Comments Sore Throat Started Wednesday with a sore throat and fever and it still hurts Encounter Details Date Type Department Care Team (Late st Contact Info) Description 12/29/2022 7:20 AM INCIDENT HANDLER Office Visit [facility] Family & Internal Medicine [facility] [id number] [place] [phone] Allyson Arzola, SHEEP OR CALF GRADER [address] [address] Sore Throat (Started Wednesday with a sore throat and fever and it still hurts) Social History Tobacco Use Types Packs/Day Years [...] Master's degree (e.g., MA, MS, Howard, MEd, FISH CLEANER MACHINE TENDER, KEKE) 12/21/2018 Comments No Sex and Gender [...] Coronavirus/COVID-19? No / Unsure 12/29/2022 7:12 AM INCIDENT HANDLER documented as of this encounter Last Filed Vital Signs Vital Sign Reading Time Taken Comments Blood Pressure 102/70 12/29/2022 7:41 AM INCIDENT HANDLER Pulse 78 12/29/2022 7:41 AM INCIDENT HANDLER Temperature 36.9 ??C (98.4 ??F) 12/29/2022 7:41 AM CS T Respiratory Rate 20 12/29/2022 7:41 AM INCIDENT HANDLER Oxygen Saturation 99% 12/29/2022 7:41 AM INCIDENT HANDLER Inhaled Oxygen Concentration - - Weight 76.4 kg (168 lb 6.4 oz) 12/29/2022 7:41 A M INCIDENT HANDLER Height 172.7 cm (5' 8 ) 12/29/2022 7:41 AM INCIDENT HANDLER Body Mass Index 25.61 12/29/2022 7:41 AM INCIDENT HANDLER documented in this encounter Patient Instructions * Patient Instructions* Allyson Arzola APRN - 12/29/2022 7:20 AM INCIDENT HANDLER Thank you for your visit! Utilize Ibuprofen or Tylenol for pain relief May gargle salt water for symptom control Please throw away tooth brush 2-3 days after antibiotic treatment begins Increase fluid intake, popsicles or lollipop (ages >4) for symptom relief May return to work/school 24 hrs after antibiotic treatment started Please take all medication as prescribed and complete treatment Follow-up with clinic if symptoms do not improved over 7-10 days or worsen Discussed with patient/family that current strep testing is NEGATIVE; will send for culture and treat when warrented. Discussed with pt /family the etiology, natural course, possible complications, and treatment options for pharyngitis. Recommended OTC therapy with pain/fever control products, Recommended for pt/ family to call/return to office with follow up if pt persits with greater than 5 days of symptoms, worsens, or as otherwise directed. Discussed with pt / family that is pt contagious until fever free for at least 24 hours. Return to activities when pt feels well . Observe pt contactsfor signs/symptoms of illness. DENT HANDLER DENT HANDLER documented in this encounter Progress Notes * Talita Phillips LPN - 12/29/2022 7:20 AM CST strep DENT HANDLER * Allyson Arzola APRN - 12/29/2022 7:20 AM CST Reason for Visit: Sore Throat (Started Wednesday with a sore throat and fever and it still hurts) History of Present Illness: Hans Pascual is a 57-year-old female who presents to the office with acute concern for sore throat and URI. Sore Throat This is a new problem. Episode onset: Wednesday. The problem has been unchanged. There has been no fever. Associated symptoms include congestion, headaches, a hoarse voice, swollen glands and trouble swallowing. Pertinent negatives include no coughing, ear discharge or shortness of breath. She has hadexposure to strep. ROS: Review of Systems Constitutional: Positive for appetite change, fatigue and fever. HENT: Positive for congestion, hoarse voice, postnasal drip, sore throat and trouble swallowing. Negative for ear discharge. Respiratory: Negative for cough and shortness of breath. Cardiovascular: Negative for chest pain and palpitations. Neurological: Positive for headaches. Medications: Current Outpatient Medications: ??? amoxicillin (AMOXIL) 875 MG tablet, Take 1 tablet (875 mg total) by mouth 2 (two) times daily for 10 days., Disp: 20 tablet, Rfl: 0 ??? Ascorbic Acid (VITAMIN [...] daily., Disp: 90 tablet, Rfl: 1 ??? HJB-DLW-Yeggonn E 192-251-11 MG-MG-UNIT Cap, Take 1 capsule by mouth daily., Disp: , Rfl: ??? dicyclomine (BENTYL) 20 MG tablet, Take [...] daily as needed., Disp: , Rfl: ??? predniSONE (DELTASONE) 20 MG tablet, Take 2 tablets (40 mg total) by mouth every morning for 5 days., Disp: 10 tablet, Rfl: 0 ??? valACYclovir 1 g tablet, as needed. , Disp: , Rfl: ??? albuterol sulfate HFA 108 (90 Base) MCG/ACT inhaler, , Disp: , Rfl: ??? ALPRAZolam 0.25 MG tablet, Take 1 tablet (0.25 mg total) by mouth nightly as needed for Sleep. (Patient not taking: Reported on 12/29/2022), Disp: 30 tablet, Rfl: 0 Allergies Allergen Reactions ??? [...] COLONOSCOPY-NORMAL performed by Niall Matute MD at [facility] ??? LAMINECTOMY,LUMBAR ??? SEPTOPLASTY Social History Socioeconomic History ??? Marital status: Spouse name: Cl ??? Number of children: 4 ??? Highest education level: Master's degree (e.g., MA, MS, Howard, MEd, FISH CLEANER MACHINE TENDER, KEKE) Occupational History ??? 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 Smoking status: Former Packs/day: 0.25 Years: 10.00 Pack years: 2.50 Types: Cigarettes Quit date: 11/15/1989 Years since quittin.1 ??? Smokeless tobacco: Never ??? Tobacco comments: [...] ??? Mother Alive ??? Father Physical Exam Vitals reviewed. Constitutional: General: She is awake. She is not in acute distress. Appearance: Normal appearance. She is well-developed and well-groomed. She is not ill-appearing, toxic-appearing or diaphoretic. HENT: Head: Normocephalic and atraumatic. Right Ear: Tympanic membrane, external ear and ear canal normal. Patient has no impacted cerumen right. Left Ear: Tympanic membrane, external ear and ear canal normal. Patient has no impacted cerumen left. Nose: Congestion present. Mouth/Throat: Uvula is midline. Mucous membranes are dry. Posterior oropharyngeal erythema present. Eyes: General: Lids are normal. Right eye: No discharge. Left eye: No discharge. Conjunctiva/sclera: Conjunctivae normal. Cardiovascular: Rate and Rhythm: Normal rate and regular rhythm. Pulses: Normal pulses. Heart sounds: Normal heart sounds, S1 normal and S2 normal. No murmur heard. Pulmonary: Effort: Pulmonary effort is normal. No respiratory distress. Breath sounds: Normal breath sounds and air entry. No stridor. No wheezing. Musculoskeletal: General: Normal range of motion. Cervical back: Full passive range of motion without pain and normal range of motion. Skin: General: Skin is [...] Cognition normal. Judgment: Judgment normal. Filed Vitals: 12/29/22 0741 BP: 102/70 Pulse: 78 Resp: 20 Temp: 98.4 ??F (36.9 ??C) TempSrc: Temporal SpO2: 99% Weight: 76.4 kg (168 lb 6.4 oz) Height: 5' 8 (1.727 m) Results for orders placed or performed in visit on 12/29/22 RAPID STREP A Specimen: THROAT Result Value Ref Range RAPID STREP TEST NEGATIVE NEGATIVE Internal Control: VALID VALID Diagnoses/Impression: 1. Sore throat RAPID STREP A CULTURE STREP A predniSONE (DELTASONE) 20 MG tablet amoxicillin (AMOXIL) 875 MG tablet 2. Exposure to strep throat amoxicillin (AMOXIL) 875 MG tablet 3. Acute viral syndrome predniSONE (DELTASONE) 20 MG tablet Recommendations and Plan: 1. Sore throat - Discussed differentials and etiologies; viral vs allergic given seasons. Reviewed supportive careas below. Increase fluid intake and get plenty of rest. Sore throat-May try as needed: salt water gargles (1/4-1/2 teaspoon of salt per 8 oz glass warm water), Chloroseptic spray as directed on the bottle for age/weight, cough drops as directed on the package for age/weight or hard candy, or teaspoon honey or heavy peach syrup. Nasal congestion-May try as needed: May utilize nasal saline flushes/Sadia Pot and then Flonase/Nasacort. May try oral antihistamines (claritin/isac/zyrtec) as directed on the package for age/weight. Headache: May try Tylenol (acetaminophen) 500 to 1000mg every 6 hours or Advil/Motrin (ibuprofen) 600-800mg every 6 hours as directed on the bottle for age/weight as needed. - RAPID STREP A - CULTURE STREP A; Future - predniSONE (DELTASONE) 20 MG tablet; Take 2 tablets (40 mg total) by mouth every morning for 5 days. Dispense: 10 tablet; Refill: 0 - amoxicillin (AMOXIL) 875 MG tablet; Take 1 tablet (875 mg total) by mouth 2 (two) times daily for10 days. Dispense: 20 tablet; Refill: 0 2. Exposure to strep throat - Discussed with patient/family that current strep testing is NEGATIVE; will send for culture and treat when warrented. Discussed with pt /family the etiology, natural course, possible complications,and treatment options for pharyngitis. Recommended OTC therapy with pain/fever control products, Rec ommended for pt/ family to call/return to office with follow up if pt persits with greater than 5 days of symptoms, worsens, or as otherwise directed. Discussed with pt / family that is pt contagiousuntil fever free for at least 24 hours. Return to activities when pt feels well . Observe pt contacts for signs/symptoms of illness. - will treat empirically due to close exposure - amoxicillin (AMOXIL) 875 MG tablet; Take 1 tablet (875 mg total) by mouth 2 (two) times daily for10 days. Dispense: 20 tablet; Refill: 0 3. Acute viral syndrome - Discussed differentials and etiologies. Reviewed supportive care as below. Increase fluid intake and get plenty of rest. Sore throat-May try as needed: salt water gargles (1/4-1/2 teaspoon of salt per 8 oz glass warm water), ibuprofen (Advil) as directed on the bottle for age/weight--take with food, Chloroseptic spray as directed on the bottle for age/weight, cough drops as directed on the package for age/weight or hard candy, or teaspoon honey or heavy peach syrup. Nasal congestion-May try as needed: Joseph's Vapor Rub, humidifier, nasal saline spray as well as nasal saline flushes/Sadia Pot and Flonase. May try oral antihistamines (claritin/isac/zyrtec) as directed on the package for age/weight Fever/Comfort: May try Tylenol (acetaminophen) or Advil/Motrin (ibuprofen) as directed on the bottle for age/weight as needed. Cough: May also try teaspoon honey or heavy peach syrup every 4 hrs as needed. - predniSONE (DELTASONE) 20 MG tablet; Take 2 tablets (40 mg total) by mouth every morning for 5 days. Dispense: 10 tablet; Refill: 0 Orders Placed This Encounter ??? predniSONE (DELTASONE) 20 MG tablet ??? amoxicillin (AMOXIL) 875 MG tablet ??? RAPID STREP A ??? CULTURE STREP A Return to clinic with new, persistent, or worsening symptoms. Hans Pascual is in agreement toand verbalized understanding of treatment plan with no further questions at this time. Reviewed and updated this visit by provider: ALLYSON A ARZOLA, SHEEP OR CALF GRADER Referring Provider: No ref. provider found PCP: JASPREET MADSEN MD DENT HANDLER documented in this encounter Plan of Treatment Upcoming Encounters Date Type Department Care Team (Late st Contact Info) Description 11/14/2024 8:00 AM INCIDENT HANDLER Office Visit [facility] Multispecialty Care - [facility] 3 [facility], [address] [place] [phone] Montserrat Oliver NP 3 [facility] [address] [place] [address] 12/06/2024 9:30 AM INCIDENT HANDLER Appointment [facility] Open MRI [address] [place] [address] [place] [address] [facility]. [address] [place] [address] 03/02/2025 3:20 PM CDT Office Visit [facility] Family & Internal Medicine - [address] [address] [place] [address] [facility]. [address] [place] [address] documented as of this encounter Procedures Procedure Name Priority Date/Time Associated Diagnosis Comments RAPID STREP A Routine 12/29/2022 Sore throat documented in this encounter Results * CULTURE STREP A (12/29/2022 7:59 AM INCIDENT HANDLER) SPEC DESCRIPTION THROAT 12/29/2022 12:33 PM INCIDENT HANDLER [facility] SPECIAL REQUESTS NO SPECIAL REQUEST 12/29/2022 12:33 PM INCIDENT HANDLER [facility] CULTURE RESULT NO STREPTOCOCCUS PYOGENES (GROUP A) ISOLATED 12/31/2022 8:03 AM INCIDENT HANDLER [facility] THROAT SWAB / Unknown 12/29/2022 7:59 AM INCIDENT HANDLER 12/29/2022 12:46 PM INCIDENT HANDLER Allyson Arzola APRN MICROBIOLOGY - GENERAL ORD ERABLES Final Result [facility] [address] [place] [address], [place] [phone] [facility] [address] [place] [address], [place] [phone] * RAPID STREP A (12/29/2022) RAPID STREP TEST NEGATIVE NEGATIVE [id number] MARGARITA SEGURA Internal Control: VALID VALID [id number] [address] [place] STRUCTURE OF ANTERIOR PORTION OF NECK / Unknown 12/29/2022 Allyson Arzola APRN MICROBIOLOGY - GENERAL ORD ERABLES Final Result Performing Organization Address City/[facility]/ZIP Co de Phone Number -[phone] [address] [place] [place] [address], [place] [phone] documented in this encounter Visit Diagnoses Diagnosis Sore throat- Primary Acute pharyngitis Exposure to strep throat Contact with or exposure to other communicable diseases Acute viral syndrome documented in this encounter Additional Health Concerns Assessment Noted Time PHQ-9 Depression Total Score: 2 05/27/20 22 11:36 AM CDT documented as of this encounter Care Teams Distribution Operations Manager Relationship Specialty Start Date End Date Jaspreet Madsen MD PCP - General INTERNAL MEDICINE 11/30/18 02/18/23 documented as of this encounter
--- OUTSIDE RECORDS SUMMARY | 2024-11-13 17:12 | XMS_ITS | Encounter Summary ---
Author Organization [facility] Address [address] [place] [address]. [place] [address] [place] [address] Care Team Providers Care Defensive Driving Instructor Name Role Phone Jaspreet Pearl MD Primary Care Provider Felipe rangel Encounter Details Date Type Department Care Team (Latest Contact Info) Description 02/17/2021 Travel Social History Tobacco Use Types Packs/Day [...] degree (e.g., MA, MS, Howard, MEd, SENIOR RISK ANALYST, KEKE) 12/21/2018 Comments No Sex and [...] (Late Contact Info) Description 11/14/2024 8:00 AM PRINT LINE SUPERVISOR Office Visit [facility] Multispecialty Care - [facility] 3 [facility], [address] [place] [address] Montserrat Oliver NP 3 [facility] [address] [place] [address] 12/06/2024 9:30 AM PRINT LINE SUPERVISOR Appointment [facility] Open MRI [address] [facility] [place] [address] [place] [address] [facility] [address] [place] [address] 03/02/2025 3:20 PM CDT Office Visit [facility] Family & Internal Medicine - [address] [phone] [place] [address] [facility]. [address] [place] [address] documented as of this encounter Visit Diagnoses Not on filedocumented in this encounter Additional Health Concerns Assessment Noted Time PHQ-9 Depression Total Score: 4 05/01/20 19 3:05 PM CDT documented as of this encounter Care Teams Defensive Driving Instructor Relationship Specialty Start Date End Date Jaspreet Pearl MD PCP - General INTERNAL MEDICINE 11/30/18 02/18/23 documented as of this encounter
--- OUTSIDE RECORDS SUMMARY | 2024-11-13 17:12 | XMS_ITS | Encounter Summary ---
Author Organization [facility] Address [address] [place] [address]. [place], [place] [id number] [place] [address] Care Team Providers Care Toys And Games Hand Finisher Name Role Phone Jaspreet Pearl MD Primary Care Provider U Kelsey Dey NP Primary Care Provider [phone] Dayanara Plaza MD Primary Care Provider [phone] Perez Cervantes MD Unavailable Adriana Ma MD Unavailable [phone] Encounter Details Date Type Department Care Team (Late st Contact Info) Description 12/28/2022 Amerityret Message Enc [facility] Medical Group Family & Internal Medicine [address] [address] Jaspreet Pearl MD Feeling better Social History Tobacco Use Types Packs/Day Years [...] Master's degree (e.g., MA, MS, Howard, MEd, COILED TUBING SUPERVISOR, KEKE) 12/21/2018 Comments No Sex and [...] Coronavirus/COVID-19? No / Unsure 12/29/2022 7:12 AM BALL MILL OPERATOR documented as of this encounter Plan of Treatment Upcoming Encounters Date Type Department Care Team (Late st Contact Info) Description 11/14/2024 8:00 AM BALL MILL OPERATOR Office Visit [facility] Multispecialty Care - [facility] 3 [facility], [address] [place] [phone] Montserrat Oliver NP 3 [facility] [address] [place] [address] 12/06/2024 9:30 AM BALL MILL OPERATOR Appointment [facility] Open MRI [address] [place] [address] [place] [address] [facility]. [address] [place] [id number] 03/02/2025 3:20 PM CDT Office Visit [facility] Medical Group Family & Internal Medicine - [address] [phone] [place] [address] [facility]. [address] [place] [phone] documented as of this encounter Visit Diagnoses Not on filedocumented in this encounter Additional Health Concerns Infection Onset Date Last Indicated Resolved Time COVID-19 Rule Out 04/03/2024 04/03/2024 04/03/2024 11:38 AM CDT Assessment Noted Time PHQ-9 Depression Total Score: 2 05/27/20 11:36 AM CDT documented as of this encounter Care Teams Toys And Games Hand Finisher Relationship Specialty Start Date End Date Jaspreet Pearl MD PCP - General INTERNAL MEDICINE 11/30/18 02/18/23 Kelsey Kc, UX DEVELOPER DESIGNER [address] [place] [address] PCP - General Nurse Practitioner Family 02/19/23 02/28/23 [place] [address] [place] [address] PCP - General FAMILY PRACTICE 03/01/23 Perez Cervantes MD [address] [address] RHEUMATOLOGY 09/02/23 Adriana Ma MD [address] [place] [address] Referring Physician ALLERGY 09/02/23 documented as of this encounter
--- OUTSIDE RECORDS SUMMARY | 2024-11-13 17:12 | XMS_ITS | Encounter Summary ---
Author Organization [facility] Address [address] [place] [address]. [place] [address] [place] [address] Care Team Providers Care Printed Circuit Board Panels Deburrer Name Role Phone Jaspreet Pearl MD Primary Care Provider Felipe juan carlos Encounter Details Date Type Department Care Team (Late st Contact Info) Description 09/14/2022 Orders Only [facility] Medical Group Family & Internal Medicine [address] [phone] Jaspreet Pearl MD Social History [...] Master's degree (e.g., MA, MS, Howard, MEd, STUDENT LIFE VICE PRESIDENT, KEKE) 12/21/2018 Comments No Sex and Gender [...] Contact Info) Description 11/14/2024 8:00 AM REHABILITATION TEAM LEAD Office Visit [facility] Multispecialty Care - [facility] 3 [facility], [address] [place] [address] Montserrat Oliver NP 3 [facility] [address] [place] [address] 12/06/2024 9:30 AM REHABILITATION TEAM LEAD Appointment [facility] Open MRI [address] [place] [address] [place] [address] [facility]. [address] [place] [address] 03/02/2025 3:20 PM CDT Office Visit [facility] Family & Internal Medicine - [address] [phone] [place] [address] [facility]. [address] [place] [address] documented as of this encounter Visit Diagnoses Diagnosis COVID-19- Primary documented in this encounter Additional Health Concerns Assessment Noted Time PHQ-9 Depression Total Score: 2 05/27/20 22 11:36 AM CDT documented as of this encounter Care Teams Printed Circuit Board Panels Deburrer Relationship Specialty Start Date End Date Jaspreet Pearl MD PCP - General INTERNAL MEDICINE 11/30/18 02/18/23 documented as of this encounter
--- OUTSIDE RECORDS SUMMARY | 2024-11-13 17:12 | XMS_ITS | Encounter Summary ---
Author Organization [facility] Address [address] [place] [address]. [place] [address] [place] [address] Care Team Providers Care Rubbing Bed Operator Name Role Phone Jaspreet Pearl MD Primary Care Provider U navailable Reason for Visit * Auth/Cert Specialty Diagnoses / Procedures Referred By Contac t Referred To Contact Diagnoses Pharyngoesophageal dysphagia Encounter for screening colonoscopy Screening and pharynesophageal dysphagia Procedures COLONOSCOPY EGD Referral ID Status Reason Start Date Expiration Date Visits Re quested Visits Authorized [id number] 1 1 Encounter Details Date Type Department Care Team (Latest Contact Info) Description 03/17/2021 8:21 AM CDT - 03/17/2021 12:[address] [facility] Hospital Encounter [facility] [place] [address] Niall Matute MD [address] [address] Discharge Disposition: Home or Self Care (Routine [...] Master's degree (e.g., MA, MS, Howard, MEd, TEST DECK SUPERVISOR, KEKE) 12/21/2018 Comments No Sex and [...] Sign Reading Time Taken Comments Blood Pressure 103/63 03/17/2021 11:55 AM CDT Pulse 57 03/17/2021 11:55 AM CDT Temperature 36.7 ??C (98.1 ??F) 03/17/2021 8:51 AM CD T Respiratory Rate 15 03/17/2021 11:55 AM CDT Oxygen Saturation 99% 03/17/2021 11:55 AM CDT Inhaled Oxygen Concentration - - Weight 77.1 kg (170 lb) 03/12/2021 11:30 AM CDT Height 172.7 cm (5' 8 ) 03/12/2021 11:30 AM CDT Body Mass Index 25.85 03/12/2021 11:30 AM CDT documented in this encounter Discharge Instructions * Attachments The following attachments cannot be sent through Care Everywhere. * Colonoscopy Discharge Instructions (Kosovan) * General Anesthesia Discharge Instructions (Kosovan) * Upper GI Endoscopy Discharge Instructions (Kosovan) documented in this encounter Medications at Time [...] mouth daily. 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 Social [...] file Gets together: Not on file Attends spiritism service: Not on file Active member of [...] Matute MD - 03/17/2021 11:33 AM CDT [facility] OpNote COLONOSCOPY-NORMAL, EGD, NEGATIVE [facility] 03/17/2021 0920 Procedure(s) (LRB): COLONOSCOPY-NORMAL (N/A) EGD, NEGATIVE (N/A) Surgeon(s): Niall Matute MD Staff: GI Nurse: Martha Villeda RN creel cleaner: Heather Liz CNA Anesthesia: General Anesthesiologist: Dawna Cifuentes MD FILM TESTS CHECKER: Elvira Farr CRNA; Con Hopper CRNA Pre-Op [...] st Contact Info) Description 11/14/2024 8:00 AM WIRELESS WATCHER Office Visit [facility] Multispecialty Care - [facility] 3 [facility], [address] [place] [phone] Montserrat Oliver NP 3 [facility] [address] [place] [address] 12/06/2024 9:30 AM WIRELESS WATCHER Appointment [facility] MRI [address] [place] [address] [place] [address] [facility]. [address] [place] [address] 03/02/2025 3:20 PM CDT Office Visit [facility] Family & Internal Medicine - [address] [phone] [place] [address] [facility]. [address] [place] [address] documented as of this encounter Procedures Procedure [...] documented as of this encounter Care Teams Rubbing Bed Operator Relationship Specialty Start Date End Date Jaspreet Pearl MD PCP - General INTERNAL MEDICINE 11/30/18 02/18/23 documented as of this encounter
--- OUTSIDE RECORDS SUMMARY | 2024-11-13 17:12 | XMS_ITS | Encounter Summary ---
Author Organization [facility] Address [address] [place] [address]. [place], [place] [address] [place] [address] Care Team Providers Care Utilities Service Investigator Name Role Phone Jaspreet Pearl MD Primary Care Provider juan carlos Encounter Details Date Type Department Care Team (Late st Contact Info) Description 09/14/2022 [employer] Message Enc [facility] Family & Internal Medicine [address] [phone] Jaspreet Pearl MD Tested positive for Covid Social History Tobacco Use Types Packs/Day Years [...] degree (e.g., MA, MS, Howard, MEd, DIRECTOR FURNITURE, KEKE) 12/21/2018 Comments No Sex and Gender Information Value Date Recorded Sex Assigned at Not on file Legal Sex Female 8:16 PM CDT Gender Identity Not on file Sexual Orientation Not on file 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 * Barb Vital RN - 09/14/2022 11:22 AM CDT Message left for patient to return call. * Barb Vital RN - 09/14/2022 11:03 AM CDT Please advise. documented in this encounter Plan of Treatment Upcoming Encounters Date Type Department Care Team (Late st Contact Info) Description 11/14/2024 8:00 AM COW TENDER Office Visit [facility] Multispecialty Care - [facility] 3 [facility], [address] [place] [phone] Montserrat Oliver NP 3 [facility] [address] [place] [address] 12/06/2024 9:30 AM COW TENDER Appointment [facility] Open MRI [address] [place] [address] [place] [address] [facility]. [address] [place] [address] 03/02/2025 3:20 PM CDT Office Visit [facility] Family & Internal Medicine - [address] [phone] [place] [address] [facility]. [address] [place] [address] documented as of this encounter Visit Diagnoses Not on filedocumented in this encounter Additional Health Concerns Assessment Noted Time PHQ-9 Depression Total Score: 2 05/27/20 22 11:36 AM CDT documented as of this encounter Care Teams Utilities Service Investigator Relationship Specialty Start Date End Date Jaspreet Pearl MD PCP - General INTERNAL MEDICINE 11/30/18 02/18/23 documented as of this encounter
--- OUTSIDE RECORDS SUMMARY | 2024-11-13 17:12 | XMS_ITS | Encounter Summary ---
Author Organization [facility] Address [address] [place] [address]. [place], [place] [address] [place] [address] Care Team Providers Care Community Service Representative Name Role Phone Jaspreet Madsen MD Primary Care Provider U juan carlos Reason for Visit * Reason Comments Follow Up FOLLOW UP MEDICATION S / LOOK AT LABS Encounter Details Date Type Department Care Team (Late st Contact Info) Description 05/27/2022 11:40 AM CDT Office Visit [facility] Family & Internal Medicine [address] [phone] Jaspreet Madsen MD Follow Up (FOLLOW UP MEDICATIONS / LOOK AT LABS) Social History Tobacco Use Types Packs/Day Years [...] degree (e.g., MA, MS, Howard, MEd, RANGE CONSERVATIONIST, KEKE) 12/21/2018 Comments No Sex and Gender [...] suspected to have Coronavirus/COVID-19? No / Unsure 05/27/2022 11:17 AM CDT documented as of this encounter Last Filed Vital Signs Vital Sign Reading Time Taken Comments Blood Pressure 111/68 05/27/2022 11:31 AM CDT Pulse 63 05/27/2022 11:31 AM CDT Temperature 36.4 ??C (97.5 ??F) 05/27/2022 11:31 AM C DT Respiratory Rate 16 05/27/2022 11:31 AM CDT Oxygen Saturation 99% 05/27/2022 11:31 AM CDT Inhaled Oxygen Concentration - - Weight 80 kg (176 lb 6.4 oz) 05/27/2022 11:31 AM CDT Height 172.7 cm (5' 8 ) 05/27/2022 11:31 AM CDT Body Mass Index 26.82 05/27/2022 11:31 AM CDT documented in this encounter Progress Notes * Jaspreet Madsen MD - 05/27/2022 11:40 AM CDT Reason for Visit: Follow Up (FOLLOW UP MEDICATIONS / LOOK AT LABS) Filed Vitals: 05/27/22 1131 BP: 111/68 Pulse: 63 Resp: 16 Temp: 97.5 ??F (36.4 ??C) TempSrc: Temporal SpO2: 99% Weight: 80 kg (176 lb 6.4 oz) Height: 5' 8 (1.727 m) Body mass index is 26.82 kg/m??. History of Present Illness: HPI good morning office visit with Mrs. Luisa ashraf lady with history of polyarthritis seeing tunnel inspector in [place] she also has anxiety allergies. Comes today as [place] very exciting about that she is doing very well recently had a blood test [place] you [place] with her tunnel inspector that showed that she has an increase in the liver enzymes encouraged her to give them a call and find out what is the plan regarding that issue 3 monthsago the enzymes were completely normal since she is taking methotrexate they need to come out with some type of decision what to do most likely let us continue medications for now until normalizationof the numbers. ROS: Review of Systems Constitutional: Negative. Respiratory: Negative. Cardiovascular: Negative. Genitourinary: Negative. Musculoskeletal: Positive for joint pain. Neurological: Negative. Psychiatric/Behavioral: Positive for depression. The patient is nervous/anxious. Medications: Current Outpatient Medications: ??? albuterol sulfate HFA 108 (90 Base) MCG/ACT inhaler, , Disp: , Rfl: ??? ALPRAZolam 0.25 MG tablet, Take 1 tablet (0.25 mg total) by mouth nightly as needed. at bedtime., Disp: 30 tablet, Rfl: 0 ??? ALPRAZolam 0.25 MG tablet, Take 1 [...] DAY, Disp: 180 tablet, Rfl: 0 ??? busPIRone 15 MG tablet, Take 1 tablet (15 mg total) by mouth 2 (two) times daily., Disp: 180 tablet, Rfl: 1 ??? citalopram 10 MG tablet, Take 1 tablet (10 mg total) by mouth daily., Disp: 90 tablet, Rfl: 1 ??? DAX-CEH-Exkzfyv E 192-251-11 MG-MG-UNIT Cap, Take 1 capsule [...] TAKE 1 TABLET BY MOUTH DAILY, Disp: 90 tablet, Rfl: 1 ??? montelukast 10 MG tablet, Take 1 tablet (10 mg total) by mouth daily., Disp: 90 tablet, Rfl: 1 ??? multivitamin tablet, Take 2 tablets by mouth daily., Disp: , Rfl: ??? nabumetone 500 MG tablet, 2 (two) times daily. , Disp: , Rfl: ??? nabumetone 500 MG [...] [facility] GI ??? LAMINECTOMY,LUMBAR ??? SEPTOPLASTY Social History Socioeconomic History ??? Marital status: Spouse name: Cl ??? Number of children: 4 ??? Highest education level: Master's degree (e.g., MA, MS, Howard, MEd, RANGE CONSERVATIONIST, KEKE) Occupational History ??? 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 Smoking status: Former Smoker Packs/day: 0.25 Years: 10.00 Pack years: 2.50 Types: Cigarettes Quit date: 1989 Years since quittin.5 ??? Smokeless tobacco: Never Used ??? Tobacco [...] of motion. Cervical back: Normal range of motion and [...] 477.9 SEASONAL ALLERGY montelukast 10 MG tablet 4. Polyarthritis M13.0 716.50 POLYARTHROPATHY Plan today she is doing very well we will continue with the current medications that I manage refills will be given for the next 3 months and 1 refill depression citalopram the montelukast and the BuSpar for anxiety continue with those medications encouraged her to call the tunnel inspector and askedthem why they recommend regarding the liver enzymes elevation. She is taking methotrexate and also Enbrel. Orders Placed This Encounter ??? albuterol sulfate HFA 108 (90 Base) MCG/ACT inhaler ??? Estradiol 10 MCG vaginal tablet ??? nabumetone 500 MG tablet ??? citalopram 10 MG tablet ??? busPIRone 15 MG tablet ??? montelukast 10 MG tablet Follow up FU 6 MONTHS JASPREET MADSEN MD 05/27/2022 12:09 PM documented in this encounter Plan of Treatment Upcoming Encounters Date Type Department Care Team (Late st Contact Info) Description 11/14/2024 8:00 AM MANAGER LINE Office Visit [facility] Multispecialty Care - [facility] 3 [facility], [address] [place] [phone] Montserrat Oliver NP 3 [facility] [address] [place] [address] 12/06/2024 9:30 AM MANAGER LINE Appointment [facility] Open MRI [address] [place] [address] [place] [address] [facility] [address] [place] [address] 03/02/2025 3:20 PM CDT Office Visit [facility] Family & Internal Medicine - [place] [phone] [place] [phone] [place] [address] [address] [place] [address] documented as of this encounter Visit Diagnoses Diagnosis Recurrent major depressive disorder, in partial remission (CMS/[facility])- Primary DURAN (generalized anxiety disorder) Generalized anxiety disorder Seasonal allergies Allergic rhinitis, cause unspecified Polyarthritis Unspecified polyarthropathy or polyarthritis, site unspecified documented in this encounter Additional Health Concerns Assessment Noted Time PHQ-9 Depression Total Score: 2 05/27/20 22 11:36 AM CDT documented as of this encounter Care Teams Community Service Representative Relationship Specialty Start Date End Date Jaspreet Madsen MD PCP - General INTERNAL MEDICINE 11/30/18 02/18/23 documented as of this encounter
--- OUTSIDE RECORDS SUMMARY | 2024-11-13 17:12 | XMS_ITS | Encounter Summary ---
Author Organization [facility] Address [address] [place] [address]. [place] [address] [place] [address] Care Team Providers Care Insurance Counsel Name Role Phone Jaspreet Pearl MD Primary Care Provider Felipe archerelijah Encounter Details Date Type Department Care Team (Latest Contact Info) Description 03/14/2021 10:50 AM CDT - 03/14/2021 11:59 PM T Hospital Encounter [facility] [place] [address] Niall Matute MD 3 [facility] [address] [place] [address] Discharge Disposition: Home or Self Care (Routine [...] Master's degree (e.g., MA, MS, Howard, MEd, RADAR OPERATOR, KEKE) 12/21/2018 Comments No Sex and [...] AM CDT documented as of this encounter Medications [...] mouth daily. 30 tablet 2 11/20/2020 1 TVW-INU-Dhpcewc E 192-251-11 MG-MG-UNIT Cap Take 1 capsule [...] 02 1 documented as of this encounter Plan of Treatment Upcoming Encounters Date Type Department Care Team (Late st Contact Info) Description 11/14/2024 8:[address] OF [place] JUDGE Office Visit [facility] Multispecialty Care - [facility] 3 [facility], [address] [place] [phone] Montserrat Oliver NP 3 [facility] [address] [place] [address] 12/06/2024 9:[address] OF APPEALS JUDGE Appointment [facility] Open [facility] [address] [place] [address] [place] [address] [facility]. [address] [place] [address] 03/02/2025 3:20 PM CDT Office Visit [facility] Family & Internal Medicine - [address] [phone] [place] [address] [address] [facility] [place] [phone] documented as of this encounter Procedures Procedure Name Priority Date/Time Associated Diagnosis Comments CORONAVIRUS (COVID 19) STAT 03/14/2021 11:20 AM CDT Pharyngoesophageal dysphagia documented in this encounter Results * PRE-SURGICAL/PRE-PROCEDURE CORONAVIRUS (COVID 19) (03/14/2021 11:20 AM CDT) CORONAVIRUS SARS COV 2 PCR (RESP) NOT DETECTED NOT DETECTED 03/15/2021 1:[address] [facility] Comment: A Not Detected (negative) test result [...] providers and patients using the following websites: https://www.[facility].RO[facility]UTO/home/Covid-19/HCP/rc- tomq-cyb5-gilx-sheet.html https://www.[facility].[facility]O/home/Covid-19/Patients/ qk-nmzi-ghb7-fact-sheet.html This test has been authorized by the FDA under an Emergency Use Authorization (EUA) for use by authorized laboratories. Due to the current public health emergency, [facility] is receiving a high volume of samples [...] about COVID-19 can be found at the [facility] website: www.[facility]/Covid19. Test performed at [facility] [address] ??[phone] Director: ASPEN HOLLINGSWORTH DO,MPH FIRST TEST NO 03/14/2021 12:08 PM CDT [facility] EMPLOYED IN HEALTHCARE NO 03/14/2021 12:08 PM CDT [facility] SYMPTOMATIC DEFINED BY CDC NO 03/14/2021 12:08 PM CDT [facility] DATE OF SYMPTOM ONSET NO 03/14/2021 12:48 PM CDT [facility] HOSPITALIZATION STATUS NO 03/14/2021 12:08 PM CDT [facility] PATIENT IN ICU NO 03/14/2021 12:08 PM CDT [facility] RESIDENT OF [facility] NO 03/14/2021 12:08 PM CDT [facility] NO 03/14/2021 12:48 PM CDT [facility] PATIENT'S RACE WHITE OR 03/14/2021 12:08 PM CDT [facility] ETHNICITY NONHISPANIC 03/14/2021 12:08 PM CDT [facility] SOURCE (QST) NASOPHARYNGEAL SWAB 03/14/2021 12:08 PM CDT [facility] NASOPHARYNGEAL SWAB / Unknown 03/14/2021 11:20 AM CDT us Niall Matute MD MICROBIOLOGY - GENERAL ORDERABLE S Final Result [facility] [address] [place] [address], [place] [phone] [facility] [address] [place] [address], documented in this encounter Visit Diagnoses Diagnosis Pharyngoesophageal dysphagia Dysphagia, pharyngoesophageal phase documented in this encounter Additional Health Concerns Infection Onset Date Last Indicated Resolved Time COVID-19 Rule Out 03/14/2021 03/14/2021 03/15/2021 1:26 PM CDT Assessment Noted Time PHQ-9 Depression Total Score: 4 05/01/20 19 3:05 PM CDT documented as of this encounter Care Teams Insurance Counsel Relationship Specialty Start Date End Date Jaspreet Pearl MD PCP - General INTERNAL MEDICINE 11/30/18 02/18/23 documented as of this encounter
--- OUTSIDE RECORDS SUMMARY | 2024-11-13 17:12 | XMS_ITS | Encounter Summary ---
Author Organization [facility] Address [address] [place] [address]. [place] [address] [place] [address] Care Team Providers Care Cattle Dehorner Name Role Phone Jaspreet Pearl MD Primary Care Provider Felipe waydylan Encounter Details Date Type Department Care Team (Latest Contact Info) Description 11/17/2021 Travel Social History Tobacco Use Types Packs/Day [...] Master's degree (e.g., MA, MS, Howard, MEd, SECTION LEADER AND MACHINE SETTER, KEKE) 12/21/2018 Comments No Sex and Gender [...] have Coronavirus / COVID-19? No / Unsure 11/11/2021 8:18 AM PLANT CONTROLS SPECIALIST documented as of this encounter Plan of Treatment Upcoming Encounters Date Type Department Care Team (Late st Contact Info) Description 11/14/2024 8:00 AM PLANT CONTROLS SPECIALIST Office Visit [facility] - [facility] 3 [facility], [address] [place] [phone] Montserrat Oliver NP 3 [facility] [address] [place] [address] 12/06/2024 9:30 AM PLANT CONTROLS SPECIALIST Appointment [facility] Open MRI [address] [place] [address] [place] [address] [facility]. [address] [place] [address] 03/02/2025 3:20 PM CDT Office Visit [facility] Family & Internal Medicine - [address] [phone] [place] [address] [facility]. [address] [place] [address] documented as of this encounter Visit Diagnoses Not on filedocumented in this encounter Additional Health Concerns Assessment Noted Time PHQ-9 Depression Total Score: 0 05/02/20 21 2:11 PM CDT documented as of this encounter Care Teams Cattle Dehorner Relationship Specialty Start Date End Date Jaspreet Pearl MD PCP - General INTERNAL MEDICINE 11/30/18 02/18/23 documented as of this encounter
--- OUTSIDE RECORDS SUMMARY | 2024-11-13 17:12 | XMS_ITS | Encounter Summary ---
Author Organization [facility] Address [address] [place] [address]. [place] [address] [place] [address] Care Team Providers Care Morgue Keeper Name Role Phone Jaspreet Pearl MD Primary Care Provider Felipe waydylan Encounter Details Date Type Department Care Team (Latest Contact Info) Description 05/27/2022 Travel Social History Tobacco Use Types Packs/Day [...] degree (e.g., MA, MS, Howard, MEd, PATIENT OFFICE REP, KEKE) 12/21/2018 Comments No Sex and Gender [...] st Contact Info) Description 11/14/2024 8:00 AM INNERSOLE MAKER Office Visit [facility] Mult[facility]pecialty Care - [facility] 3 [facility], Suite [facility] [place] [address] Montserrat Oliver NP 3 [facility] [address] [place] [address] 12/06/2024 9:30 AM INNERSOLE MAKER Appointment [facility] Open MRI [address] [place] [address] [place] [address] [facility]. [address] [place] [phone] 03/02/2025 3:20 PM CDT Office Visit [facility] Family & Internal Medicine - [address] [phone] [place] [address] [facility]. [address] [place] [address] documented as of this encounter Visit Diagnoses Not on filedocumented in this encounter Additional Health Concerns Assessment Noted Time PHQ-9 Depression Total Score: 2 05/27/20 22 11:36 AM CDT documented as of this encounter Care Teams Morgue Keeper Relationship Specialty Start Date End Date Jaspreet Pearl MD PCP - General INTERNAL MEDICINE 11/30/18 02/18/23 documented as of this encounter
--- OUTSIDE RECORDS SUMMARY | 2024-11-13 17:12 | XMS_ITS | Encounter Summary ---
Author Organization [facility] Address [address] [place] [address]. [place] [address] [place] [address] Care Team Providers Care Art Class Model Name Role Phone Jaspreet Pearl MD Primary Care Provider U navailable Reason for Visit * Imaging (Routine) - Closed Specialty Diagnoses / Procedures Referred By Contac t Referred To Contact RADIOLOGY Diagnoses Encounter for screening mammogram for malignant neoplasm of breast Procedures MG SCREENING W KRISTEN VICTORIANO DIGI Stalin Moser MD [address] [phone] Phone: tel: fax: Referral ID Status Reason Start Date Expiration Date Visits Re quested Visits Authorized [id number] Closed 01/05/2023 01/05/2024 1 1 Encounter Details Date Type Department Care Team (Latest Contact Info) Description 01/06/2023 2:46 PM SUPERVISOR KNITTING - 01/06/2023 11:59 PM [facility] Hospital Encounter [facility] [address] [place] [address] Stalin Moser MD [address] [phone] Stalin Calderón MD [address] [address] Discharge Disposition: Home or Self Care (Routine [...] Master's degree (e.g., MA, MS, Howard, MEd, CREATIVE PRODUCER, KEKE) 12/21/2018 Comments No Sex and Gender [...] Coronavirus/COVID-19? No / Unsure 01/06/2023 2:46 PM SUPERVISOR KNITTING documented as of this encounter Medications at [...] mouth daily. 90 tablet 1 05/27/2022 3 ICM-PHB-Qjlrorv E 192-251-11 MG-MG-UNIT Cap Take 1 capsule by mouth daily. 3 dicyclomine (BENTYL) 20 MG tabletIndications: Irritable [...] 2 tablets by mouth daily. 4 nabumetone (RELAFEN) 500 MG tablet Take 2 tablets (1,000 mg total) by mouth 2 (two) times daily. 01/04/2023 3 nabumetone 500 MG tablet Take 2 tablets (1,000 mg total) by mouth 2 (two) times daily. 11/24/2021 4 polyethylene glycol packet Take 240 mLs (1 packet total) by mouth daily as needed. 4 documented as of this encounter Plan of Treatment Upcoming Encounters Date Type Department Care Team (Late st Contact Info) Description 11/14/2024 8:00 AM SUPERVISOR KNITTING Office Visit [facility] Multispecialty Care - [facility] [address], [address] [place] [phone] Montserrat Oliver NP 3 [facility] [address] [place] [address] 12/06/2024 9:30 AM SUPERVISOR KNITTING Appointment [facility] Open MRI [address] [place] [address] [place] [address] [place] [phone] 03/02/2025 3:20 PM CDT Office Visit [facility] Family & Internal Medicine - [address] [phone] [place] [address] [place] [phone] documented as of this encounter Procedures Procedure Name Priority Date/Time Associated Diagnosis Comments MG SCREENING W KRISTEN VICTORIANO DIGI Routine 01/06/2023 3:08 PM SUPERVISOR KNITTING Encounter for screening mammogram for malignant neoplasm of breast documented in this encounter Results * MG SCREENING W KRISTEN VICTORIANO DIGI (01/06/2023 3:08 PM SUPERVISOR KNITTING) Anatomical Region Laterality Modality Breast Bilateral Mammography 01/06/2023 4:06 PM SUPERVISOR KNITTING Narrative 01/06/2023 4:09 PM SUPERVISOR KNITTING Examination: Screening bilateral mammogram with 3-D tomosynthesis [...] may obscure findings on mammogram. Ordered By: STALIN MOSER Interpreted By: Chan Leslie MD, 01/06/2023 4:06 PM Stalin Moser MD MAMMO Final Result documented in this encounter Visit Diagnoses Not on filedocumented in this encounter Additional Health Concerns Assessment Noted Time PHQ-9 Depression Total Score: 2 05/27/20 22 11:36 AM CDT documented as of this encounter Care Teams Art Class Model Relationship Specialty Start Date End Date Jaspreet Pearl MD PCP - General INTERNAL MEDICINE 11/30/18 02/18/23 documented as of this encounter
--- OUTSIDE RECORDS SUMMARY | 2024-11-13 17:12 | XMS_ITS | Encounter Summary ---
Author Organization [facility] Address [address] [place] [address]. [place] [address] [place] [address] Care Team Providers Care Salvager Helper Name Role Phone Jaspreet Pearl MD Primary Care Provider Felipe waydylan Encounter Details Date Type Department Care Team (Latest Contact Info) Description 11/11/2021 Travel Social History Tobacco Use Types Packs/Day [...] Master's degree (e.g., MA, MS, Howard, MEd, SPECIAL INVESTIGATION UNIT INVESTIGATOR, KEKE) 12/21/2018 Comments No Sex and [...] COVID-19? No / Unsure 11/11/2021 8:18 AM HISTORY TEACHER documented as of this encounter Plan of Treatment Upcoming Encounters Date Type Department Care Team (Late st Contact Info) Description 11/14/2024 8:00 AM HISTORY TEACHER Office Visit [facility] Multispecialty Care - [facility] 3 [facility], [address] [place] [phone] Montserrat Oliver NP 3 [facility] [address] [place] [address] 12/06/2024 9:30 AM HISTORY TEACHER Appointment [facility] Open MRI [address] [place] [address] [place] [address] [facility]. [address] [place] [address] 03/02/2025 3:20 PM CDT Office Visit [facility] Family & Internal Medicine - [address] [phone] [place] [address] [facility]. [address] [place] [address] documented as of this encounter Visit Diagnoses Not on filedocumented in this encounter Additional Health Concerns Assessment Noted Time PHQ-9 Depression Total Score: 0 05/02/20 21 2:11 PM CDT documented as of this encounter Care Teams Salvager Helper Relationship Specialty Start Date End Date Jaspreet Pearl MD PCP - General INTERNAL MEDICINE 11/30/18 02/18/23 documented as of this encounter
--- OUTSIDE RECORDS SUMMARY | 2024-11-13 17:12 | XMS_ITS | Encounter Summary ---
Author Organization [facility] Address [address] [place] [address]. [place], [place] [address] [place] [address] Care Team Providers Care Rock Climbing Team Member Name Role Phone Kelsey Kc NP Primary Care Provider Reason for Visit * Reason Onset Date Comments Advice 02/24/2023 Encounter Details Date Type Department Care Team (Late st Contact Info) Description 02/24/2023 Telephone [facility] Medical Group Family & Internal Medicine [facility] [id number] [place] [phone] [place] [address] [facility] [address] [place] [address] Advice Social History Tobacco Use Types Packs/Day Years [...] Master's degree (e.g., MA, MS, Howard, MEd, SCHOOL COMMUNITY RELATIONS COORDINATOR, KEKE) 12/21/2018 Comments No Sex and [...] as of this encounter Progress Notes * Efren Malhotra RN - 02/26/2023 11:22 AM CDT See patient response. * Kelsey Kc NP - 02/25/2023 3:22 PM CDT Are symptoms still present? Blood pressure in the 140's is not dangerous for CVA - we can follow-upof this at scheduled appointment. ER if it is greater than 180 / 100 * Efren Malhotra RN - 02/25/2023 12:52 PM CDT See patient response. * Efren Malhotra RN - 02/24/2023 4:13 PM CDT Attempted to call patient. No answer. Unable to LVM to return call to clinic. * Efren Malhotra RN - 02/24/2023 3:57 PM CDT Message sent to the provider. Waiting for response at this time. * Efren Malhotra RN - 02/24/2023 3:57 PM CDT ----- Message from Asmita Amaya sent at 02/24/2023 2:11 PM CDT ----- Regarding: FW: Appointment scheduled from [facility] Contact: Please read patients message below, should she come into the walk in clinic? ----- Message ----- From: Hans Pascual Sent: 02/24/2023 1:55 PM CDT To: Mg Nagel Psr Subject: Appointment scheduled from [facility] Appointment For: Hans Pascual ([id number]) Visit Type: FOLLOW UP (4082) 03/03/2023 4:00 PM 20 mins. Allyson Arzola APRN [facility] FM Patient Comments: episodes of feeling faint/dizzy, fainted at signal operator linguist, feeling a lot of anxiety over it. I work [employer] and nurse took my B/P today and it was high for me and she suggested I make an appointment. documented in this encounter Plan of Treatment Upcoming Encounters Date Type Department Care Team (Late st Contact Info) Description 11/14/2024 8:00 AM SUPERVISOR SHUTTLE FITTING Office Visit [facility] Medical Group Multispecialty Care - [facility] 3 [facility], [address] [place] [phone] Montserrat Oliver NP 3 [facility] [address] [place] [address] 12/06/2024 9:30 AM SUPERVISOR SHUTTLE FITTING Appointment [facility] Open MRI [address] [place] [address] [place] [address] [address] [place] [phone] 03/02/2025 3:20 PM CDT Office Visit [facility] Medical Group Family & Internal Medicine - [place] [address] [place] [address] [place] [address] [facility]. [address] [place] [address] documented as of this encounter Visit Diagnoses Not on filedocumented in this encounter Additional Health Concerns Assessment Noted Time PHQ-9 Depression Total Score: 2 05/27/20 22 11:36 AM CDT documented as of this encounter Care Teams Rock Climbing Team Member Relationship Specialty [place] [address] [facility] [address] [place] [address] PCP - General Nurse Practitioner Family 02/19/2302/13 documented as of this encounter
--- OUTSIDE RECORDS SUMMARY | 2024-11-13 17:12 | XMS_ITS | Encounter Summary ---
Author Organization [facility] Address [address] [place] [address]. [place], [place] [address] [place] [address] Care Team Providers Care Credit Analyst Name Role Phone Jaspreet Madsen MD Primary Care Provider U juan carlos Reason for Visit * Reason Comments Follow Up Follow up on hip bur sitis, medication refill Encounter Details Date Type Department Care Team (Late st Contact Info) Description 11/04/2021 11:40 AM WATER QUALITY MANAGER Office Visit [facility] Medical Group Family & Internal Medicine [address] [phone] Jaspreet Madsen MD Follow Up (Follow up on hip bursitis, medication refill) Social History Tobacco Use Types Packs/Day Years [...] degree (e.g., MA, MS, Howard, MEd, SENIOR SECURITY ENGINEER, KEKE) 12/21/2018 Comments No Sex and [...] COVID-19? No / Unsure 11/04/2021 11:29 AM WATER QUALITY MANAGER documented as of this encounter Last Filed Vital Signs Vital Sign Reading Time Taken Comments Blood Pressure 102/64 11/04/2021 11:38 AM WATER QUALITY MANAGER Pulse 62 11/04/2021 11:38 AM WATER QUALITY MANAGER Temperature 36.6 ??C (97.8 ??F) 11/04/2021 11:[address] Respiratory Rate 20 11/04/2021 11:38 AM WATER QUALITY MANAGER Oxygen Saturation 98% 11/04/2021 11:38 AM WATER QUALITY MANAGER Inhaled Oxygen Concentration - - Weight 79.1 kg (174 lb 6.4 oz) 11/04/2021 11:38 AM WATER QUALITY MANAGER Height 172.7 cm (5' 8 ) 11/04/2021 11:38 AM WATER QUALITY MANAGER Body Mass Index 26.52 11/04/2021 11:38 AM WATER QUALITY MANAGER documented in this encounter Progress Notes * Jaspreet Madsen MD - 11/04/2021 11:40 AM CST Images from the original note were not included. Reason for Visit: Follow Up (Follow up on hip bursitis, medication refill) Filed Vitals: 11/04/21 1138 BP: 102/64 Pulse: 62 Resp: 20 Temp: 97.8 ??F (36.6 ??C) TempSrc: Temporal SpO2: 98% Weight: 79.1 kg (174 lb 6.4 oz) Height: 5' 8 (1.727 m) Body mass index is 26.52 kg/m??. History of Present Illness: HPI good morning office visit and Mrs. Luisa ashraf 56-year-old lady with a history of generalized osteoarthritis for which he sees a sidewalk repairer in [place] and she takes several medications for that she also has a history of generalized anxiety and today she comes with pain in both hips shetold that to the sidewalk repairer who told her that I was bursitis however when I examined her today there is no bursitis the pain that she is describing is actually higher in the iliac crest. In both sides so encouraged her to get a soft mattress when she sleeps because that is when the pain is worse and I going to give her a shot of steroid that will help her with that and other joints pain otherwise she is doing excellently well her anxiety is well controlled and his respiratory issues are stable ROS: Review of Systems Constitutional: Negative. Respiratory: Negative. Cardiovascular: Negative. Musculoskeletal: Positive for joint pain. Pain in both lateral iliac crest Neurological: Negative. Psychiatric/Behavioral: Positive for depression. The patient is nervous/anxious. All other systems reviewed and are negative. Medications: Current Outpatient Medications: ??? ALPRAZolam 0.25 [...] daily., Disp: 90 tablet, Rfl: 1 ??? OBY-ZWV-Nczacnp E (OMEGA-3 COMPLEX) 192-251-11 MG-MG-UNIT Cap, Take [...] COLONOSCOPY-NORMAL performed by Niall Matute MD at [facility] ??? LAMINECTOMY,LUMBAR ??? SEPTOPLASTY Social History Socioeconomic History ??? Marital status: Spouse name: Cl ??? Number of children: 4 ??? Years of education: Not on file ??? Highest education level: Master's degree (e.g., MA, MS, Howard, MEd, SENIOR SECURITY ENGINEER, KEKE) Occupational History ??? 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 Smoking status: Former Smoker Packs/day: 0.25 Years: 10.00 Pack years: 2.50 Types: Cigarettes Quit date: 1989 Years since quittin.9 ??? Smokeless tobacco: Never Used ??? Tobacco [...] Social Determinants of Health Financial Resource Strain: Not on file Food Insecurity: Not on file Transportation Needs: Not on file Physical Activity: Not on file Stress: Not on file Social Connections: Not on file Intimate Partner Violence: Not on file Family History Problem Relation Name Age of Onset ??? COPD Mother ??? Other (mva) Father Family Status Relation Name Status ??? Mother Alive ??? Father Physical Exam Constitutional: Appearance: Normal appearance. Cardiovascular: Rate and Rhythm: Normal rate and regular rhythm. Pulmonary: Effort: Pulmonary effort is normal. Breath sounds: Normal breath sounds. Musculoskeletal: Cervical back: Normal range of motion and neck supple. Lumbar back: Tenderness present. Back: Neurological: General: No focal deficit present. Mental Status: She is alert and oriented to person, place, and time. Psychiatric: Mood and Affect: Mood normal. Behavior: Behavior normal. Assessment Encounter Diagnose(s) ICD-10-CM ICD-9-CM SNOMED CT(R) 1. Arthritis M19.90 716.90 ARTHRITIS triamcinolone acetonide (KENALOG-40) injection 40 mg 2. Hip pain, bilateral M25.551 719.45 HIP PAIN triamcinolone acetonide (KENALOG- 40) injection 40 mg M25.552 3. Polyarthritis M13.0 716.50 POLYARTHROPATHY 4. DURAN (generalized anxiety disorder) F41.1 300.02 GENERALIZED ANXIETY DISORDER 5. Iliac crest bone pain M89.8X8 733.90 BONE PAIN Plan she will continue with her current medications for arthritis and I will proceed with an injection of Kenalog to help her with this pain that she is having also encouraged her to get soft mattress as she tells me that that mattress is very all. Otherwise continue with the rest of the medicationfor her anxiety No orders of the defined types were placed in this encounter. Follow up FU 6 MONTHS JASPREET MADSEN MD 11/04/2021 12:22 PM R QUALITY MANAGER documented in this encounter Plan of Treatment Upcoming Encounters Date Type Department Care Team (Late st Contact Info) Description 11/14/2024 8:00 AM WATER QUALITY MANAGER Office Visit [facility] Multispecialty Care - [address], [address] [place] [phone] Montserrat Oliver NP 3 [facility] [address] [place] [address] 12/06/2024 9:30 AM WATER QUALITY MANAGER Appointment [facility] Open MRI [address] [place] [address] [place] [address] [facility]. [address] [place] [address] 03/02/2025 3:20 PM CDT Office Visit [facility] Family & Internal Medicine - [place] [address] [phone] [place] [address] [facility]. [address] [place] [address] documented as of this encounter Visit Diagnoses Diagnosis Arthritis- Primary Arthropathy, unspecified, site unspecified Hip pain, bilateral Pain in joint, pelvic region and thigh Polyarthritis Unspecified polyarthropathy or polyarthritis, site unspecified DURAN (generalized anxiety disorder) Generalized anxiety disorder Iliac crest bone pain Disorder of bone and cartilage, unspecified documented in this encounter Administered Medications Inactive Administered Medications - up to 3 most recent administrations Medication Order MAR Action Action Date Dose Rate Site triamcinolone acetonide (KENALOG-40) injection 40 mg 40 mg, Intramuscular, Once, 1 dose, On Wed11/04/21 at 1300, Shake WellIndications:Arthrit is,Hip pain, bilateral Given 11/04/2021 12:39 PM WATER QUALITY MANAGER 40 mg Right Upper Outer Quadrant documented in this encounter Additional Health Concerns Assessment Noted Time PHQ-9 Depression Total Score: 0 05/02/20 2:11 PM CDT documented as of this encounter Care Teams Credit Analyst Relationship Specialty Start Date End Date Jaspreet Madsen MD PCP - General INTERNAL MEDICINE 11/30/18 02/18/23 documented as of this encounter
--- OUTSIDE RECORDS SUMMARY | 2024-11-13 17:12 | XMS_ITS | Encounter Summary ---
Author Organization [facility] Address [address] [place] [address]. [place] [address] [place] [address] Care Team Providers Care Site Surveyor Name Role Phone Jaspreet Pearl MD Primary Care Provider Felipe rangel Encounter Details Date Type Department Care Team (Latest Contact Info) Description 11/04/2021 Scan HEALTH INFO SRVCS Scanned, Documents Social [...] Master's degree (e.g., MA, MS, Howard, MEd, SPACE CONTROL AGENT, KEKE) 12/21/2018 Comments No Sex and [...] COVID-19? No / Unsure 11/11/2021 8:18 AM BRANCH LOGISTICS SUPERVISOR documented as of this encounter Plan of Treatment Upcoming Encounters Date Type Department Care Team (Late st Contact Info) Description 11/14/2024 8:00 AM BRANCH LOGISTICS SUPERVISOR Office Visit [facility] Multispecialty Care - [facility] 3 [facility], [address] [place] [address] Montserrat Oliver NP 3 [facility] [address] [place] [address] 12/06/2024 9:30 AM BRANCH LOGISTICS SUPERVISOR Appointment [facility] Open MRI [address] [place] [address] [place] [address] [facility]. [address] [place] [phone] 03/02/2025 3:20 PM CDT Office Visit [facility] Family & Internal Medicine - [address] [phone] [place] [address] [facility]. [address] [place] [address] documented as of this encounter Visit Diagnoses Not on filedocumented in this encounter Additional Health Concerns Assessment Noted Time PHQ-9 Depression Total Score: 0 05/02/20 21 2:11 PM CDT documented as of this encounter Care Teams Site Surveyor Relationship Specialty Start Date End Date Jaspreet Pearl MD PCP - General INTERNAL MEDICINE 11/30/18 02/18/23 documented as of this encounter
--- OUTSIDE RECORDS SUMMARY | 2024-11-13 17:13 | XMS_ITS | Encounter Summary ---
Author Organization [facility] Address [address] [place] [address]. [place], [place] [address] [place] [address] Care Team Providers Care In Room Dining Server Name Role Phone Jasrpeet Madsen MD Primary Care Provider U juan carlos Reason for Visit * Reason Comments GERD med check Anxiety Depression Encounter Details Date Type Department Care Team (Late st Contact Info) Description 11/20/2020 3:40 PM ADHESION TESTER Telemedicine [facility] Family & Internal Medicine [address] [phone] Jaspreet Madsen MD GERD (med check ); Anxiety; Depression Social History Tobacco Use Types Packs/Day Years Used Date Smoking Tobacco: Former Cigarettes 0.3 4 1 986 - 1990 Smokeless Tobacco: Never Tobacco Cessation:Counseling Given: No Comments:socially Alcohol Use Standard Drinks/Week Comments No [...] Master's degree (e.g., MA, MS, Howard, MEd, POSTULANT, KEKE) 12/21/2018 Comments No Sex and Gender [...] have Coronavirus / COVID-19? No / Unsure 11/19/2020 5:38 PM ADHESION TESTER documented as of this encounter Last Filed Vital Signs Vital Sign Reading Time Taken Comments Blood Pressure - - Pulse - - Temperature 36.6 ??C (97.9 ??F) 11/20/2020 3:03 PM CS T Respiratory Rate - - Oxygen Saturation 99% 11/20/2020 3:03 PM ADHESION TESTER Inhaled Oxygen Concentration - - Weight 78.9 kg (174 lb) 11/20/2020 3:03 PM ADHESION TESTER Height 172.7 cm (5' 8 ) 11/20/2020 3:03 PM ADHESION TESTER Body Mass Index 26.46 11/20/2020 3:03 PM ADHESION TESTER documented in this encounter Progress Notes * Jaspreet Madsen MD - 11/20/2020 3:40 PM CST Reason for Visit: GERD (med check ), Anxiety, and Depression I introduced and identified myself, received verbal consent from the patient to proceed with this video visit and made the patient aware that the same confidentiality and information systems operator practices apply. The patient joined the video visit from Home. I completed the virtual visit from Office. The following clinical staff helped with this visit MA: micky. Total Time Spent in Minutes: 13 Filed Vitals: 11/20/20 1503 Temp: 97.9 ??F (36.6 ??C) TempSrc: Oral SpO2: 99% Weight: 78.9 kg (174 lb) Height: 5' 8 (1.727 m) Body mass index is 26.46 kg/m??. History of Present Illness: HPI good afternoon video conference with Luisa Jordan 55-year-old lady will need refills of some of the medications she sees the pattern grader supervisor and everything is stable she takes her medications regularly and compliant ROS: Review of Systems Musculoskeletal: Positive for joint pain. Psychiatric/Behavioral: Positive for depression. Negative for hallucinations, substance abuse and suicidal ideas. The patient is nervous/anxious. Medications: Current Outpatient Medications: ??? Albuterol Sulfate (PROAIR RESPICLICK) 108 (90 Base) MCG/ACT AEROSOL POWDER, BREATH ACTIVATED, Inhale 2 puffs into the lungs 4 (four) times daily as needed., Disp: , Rfl: ??? ALPRAZolam 0.25 MG [...] daily., Disp: 30 tablet, Rfl: 2 ??? IDO-ZBM-Enwuskb E (OMEGA-3 COMPLEX) 192-251-11 MG-MG-UNIT Cap, Take [...] 0.1 % ointment, , Disp: , Rfl: ??? valACYclovir 1 g tablet, as needed. , Disp: , Rfl: Allergies Allergen Reactions ??? Levofloxacin Hallucinations, Nausea [...] Master's degree (e.g., MA, MS, Howard, MEd, POSTULANT, KEKE) Occupational History ??? 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 Financial resource strain: Not on file ??? Food insecurity Worry: Not on file Inability: Not on file ??? Transportation needs Medical: Not on file Non-medical: Not on file Tobacco Use ??? Smoking status: Former Smoker Packs/day: 0.25 Years: 4.00 Pack years: 1.00 Types: Cigarettes Quit date: 1989 Years since quittin.0 ??? Smokeless tobacco: Never Used ??? Tobacco [...] file Gets together: Not on file Attends quaker service: Not on file Active member of [...] Mother Alive ??? Father Physical Exam Constitutional: This was a video conference Hans looks very good good spirit in spite of the fact she is working from home she is taking her medications regularly and she seems to be in good spirit. This was a video conference no physical examination done. Assessment Encounter Diagnose(s) ICD-10-CM ICD-9-CM SNOMED CT(R) 1. DURAN (generalized anxiety disorder) F41.1 300.02 GENERALIZED ANXIETY DISORDER citalopram 10 MG tablet busPIRone 15 MG tablet 2. Polyarthritis M13.0 716.50 POLYARTHROPATHY 3. Recurrent major depressive disorder, in partial remission (CMS/HCC) F33.41 296.35 RECURRENT MAJOR DEPRESSION IN PARTIAL REMISSION 4. Primary insomnia F51.01 307.42 PRIMARY INSOMNIA Plan continue current medications she sees a pattern grader supervisor and she also sees a counselor. Orders Placed This Encounter ??? triamcinolone 0.1 % ointment ??? citalopram 10 MG tablet ??? busPIRone 15 MG tablet Follow up FU 3 MONTHS JASPREET MADSEN MD 11/20/2020 4:14 PM SION TESTER SION TESTER documented in this encounter Plan of Treatment Upcoming Encounters Date Type Department Care Team (Late st Contact Info) Description 11/14/2024 8:00 AM ADHESION TESTER Office Visit [facility] Care - [facility] [address] [place] [address] Montserrat Oliver NP 3 [facility] [address] [place] [address] 12/06/2024 9:30 AM ADHESION TESTER [facility] [address] [facility] [place] [address] [place] [address] [place] [phone] 03/02/2025 3:20 PM CDT Office Visit [facility] Family & Internal Medicine - [address] [phone] [place] [address] [place] [phone] documented as of this encounter Visit Diagnoses Diagnosis DURAN (generalized anxiety disorder)- Primary Generalized anxiety disorder Polyarthritis Unspecified polyarthropathy or polyarthritis, site unspecified Recurrent major depressive disorder, in partial remission ([facility]) Primary insomnia Persistent disorder of initiating or maintaining sleep documented in this encounter Additional Health Concerns Assessment Noted Time PHQ-9 Depression Total Score: 4 05/01/20 19 3:05 PM CDT documented as of this encounter Care Teams In Room Dining Server Relationship Specialty Start Date End Date Jaspreet Madsen MD PCP - General INTERNAL MEDICINE 11/30/18 02/18/23 documented as of this encounter
--- OUTSIDE RECORDS SUMMARY | 2024-11-13 17:13 | XMS_ITS | Encounter Summary ---
Author Organization [facility] Address [address] [place] [address]. [place] [address] [place] [address] Care Team Providers Care Aircraft Log Clerk Name Role Phone Jaspreet Pearl MD Primary Care Provider Felipe rangel Encounter Details Date Type Department Care Team (Latest Contact Info) Description 11/16/2020 Scan [facility] SRV[facility] Scanned, Documents [...] Master's degree (e.g., MA, MS, Howard, MEd, CIVIL ENGINEERING DESIGN DRAFTSPERSON, KEKE) 12/21/2018 Comments No Sex and Gender [...] COVID-19? No / Unsure 11/19/2020 5:38 PM MACHINES TECHNICIAN documented as of this encounter Plan of Treatment Upcoming Encounters Date Type Department Care Team (Late st Contact Info) Description 11/14/2024 8:00 AM MACHINES TECHNICIAN Office Visit [facility] Multispecialty Care - [facility] [address] [facility], [address] [place] [address] Montserrat Oliver, EVALUATION MANAGER 3 [facility] [address] [place] [address] 12/06/2024 9:30 AM MACHINES TECHNICIAN Appointment [facility] Open MRI [address] [place] [address] [place] [address] [facility] [place] [address] 03/02/2025 3:20 PM CDT Office Visit [facility] Family & Internal Medicine - [place] [address] [place] [phone] [place] [address] [facility]. [address] [place] [address] documented as of this encounter Visit Diagnoses Not on filedocumented in this encounter Additional Health Concerns Assessment Noted Time PHQ-9 Depression Total Score: 4 05/01/20 19 3:05 PM CDT documented as of this encounter Care Teams Aircraft Log Clerk Relationship Specialty Start Date End Date Jaspreet Pearl MD PCP - General INTERNAL MEDICINE 11/30/18 02/18/23 documented as of this encounter
--- OUTSIDE RECORDS SUMMARY | 2024-11-13 17:13 | XMS_ITS | Encounter Summary ---
Author Organization [facility] Address [address] [place] [address]. [place], [place] [address] [place] [address] Care Team Providers Care Staff Development Manager Name Role Phone Jaspreet Pearl MD Primary Care Provider Felipe rangel Encounter Details Date Type Department Care Team (Latest Contact Info) Description 01/12/2020 Travel Social History Tobacco Use Types Packs/Day [...] Master's degree (e.g., MA, MS, Howard, MEd, SURGICAL MANAGER, KEKE) 12/21/2018 Comments No Sex and [...] st Contact Info) Description 11/14/2024 8:00 AM END FRAZER Office Visit [facility] Multispecialty Care - [facility] [address] [facility], [address] [place] [phone] Montserrat Oliver, DISABILITY AIDE [address] [place] [address] 12/06/2024 9:30 AM END FRAZER [facility] [address] [facility] [place] [address] [place] [address] [place] [address] 03/02/2025 3:20 PM CDT Office Visit [facility] Family & Internal Medicine - [address] [phone] [place] [address] [place] [address] documented as of this encounter Visit Diagnoses Not on filedocumented in this encounter Additional Health Concerns Assessment Noted Time PHQ-9 Depression Total Score: 4 05/01/20 19 3:05 PM CDT documented as of this encounter Care Teams Staff Development Manager Relationship Specialty Start Date End Date Jaspreet Pearl MD PCP - General INTERNAL MEDICINE 11/30/18 02/18/23 documented as of this encounter
--- OUTSIDE RECORDS SUMMARY | 2024-11-13 17:13 | XMS_ITS | Encounter Summary ---
Author Organization [facility] Address [address] [place] [address]. [place] [address] [place] [address] Care Team Providers Care Director Of Development Name Role Phone Jaspreet Pearl MD Primary Care Provider Felipe rangel Encounter Details Date Type Department Care Team (Latest Contact Info) Description 01/28/2021 Travel Social History Tobacco Use Types Packs/Day [...] Master's degree (e.g., MA, MS, Howard, MEd, VOLUNTEER SERVICES COORDINATOR, KEKE) 12/21/2018 Comments No Sex and [...] have Coronavirus / COVID-19? No / Unsure 01/28/2021 11:20 AM CDT documented as of this encounter Plan of Treatment Upcoming Encounters Date Type Department Care Team (Late Contact Info) Description 11/14/2024 8:00 AM COMBINATION MACHINE TOOL OPERATOR Office Visit [facility] Multispecialty Care - [facility] [address] [facility], [address] [place] [address] Montserrat Oliver NP 3 [facility] [address] [place] [address] 12/06/2024 9:30 AM COMBINATION MACHINE TOOL OPERATOR Appointment [facility] Open MRI [address] [facility] [place] [address] [place] [address] [address] [facility] [address] [place] [address] 03/02/2025 3:20 PM CDT Office Visit [facility] Family & Internal Medicine - [address] [phone] [place] [address] [facility]. [address] [place] [address] documented as of this encounter Visit Diagnoses Not on filedocumented in this encounter Additional Health Concerns Assessment Noted Time PHQ-9 Depression Total Score: 4 05/01/20 19 3:05 PM CDT documented as of this encounter Care Teams Director Of Development Relationship Specialty Start Date End Date Jaspreet Pearl MD PCP - General INTERNAL MEDICINE 11/30/18 02/18/23 documented as of this encounter
--- OUTSIDE RECORDS SUMMARY | 2024-11-13 17:13 | XMS_ITS | Encounter Summary ---
Author Organization [facility] Address [address] [place] [address]. [place] [address] [place] [address] Care Team Providers Care Cocoa Bean Cleaner Name Role Phone Jaspreet Madsen MD Primary Care Provider U juan carlos Reason for Visit * Reason Comments Follow Up refill on her anxiet y and depression medication (Buproprion, Xanax). She said the medication is helping a lot and she is doing much better since her last visit. Encounter Details Date Type Department Care Team (Late st Contact Info) Description 08/02/2019 4:00 PM CDT Office Visit [facility] Family & Internal Medicine [address] [phone] Jaspreet Madsen MD Follow Up (refill on her anxiety and depression medication (Buproprion, Xanax). She said the medication is helping a lot and she is doing much better since her last visit.) Social History Tobacco Use Types Packs/Day Years [...] of Binge Drinking Not on file 11/15 Education Answer Date Recorded What is the highest level of school you have completed or the highest degree you have received? Master's degree (e.g., MA, MS, Howard, MEd, DRAGSAW OPERATOR, KEKE) 12/21/2018 Comments No Sex and [...] Sign Reading Time Taken Comments Blood Pressure 100/62 08/02/2019 4:04 PM CDT Pulse 67 08/02/2019 4:04 PM CDT Temperature 37.2 ??C (98.9 ??F) 08/02/2019 4:04 PM CD T Respiratory Rate 18 08/02/2019 4:04 PM CDT Oxygen Saturation 99% 08/02/2019 4:04 PM CDT Inhaled Oxygen Concentration - - Weight 75.8 kg (167 lb) 08/02/2019 4:04 PM CDT Height 175.3 cm (5' 9 ) 08/02/2019 4:04 PM CDT Body Mass Index 24.66 08/02/2019 4:04 PM CDT documented in this encounter Progress Notes * Jaspreet Madsen MD - 08/02/2019 4:00 PM CDT Reason for Visit: Follow Up (refill on her anxiety and depression medication (Buproprion, Xanax). She said the medication is helping a lot and she is doing much better since her last visit.) Filed Vitals: 08/02/19 1604 BP: 100/62 Pulse: 67 Resp: 18 Temp: 98.9 ??F (37.2 ??C) SpO2: 99% Weight: 75.8 kg (167 lb) Height: 5' 9 (1.753 m) Body mass index is 24.66 kg/m??. History of Present Illness: HPI this is an office visit in Mrs. Maxwell she is a pleasant 54-year-old lady with severe anxietywith the approach to using the right now she is doing excellently well she said that for the first time she is feeling very relaxed able to sleep better and function in her daily life. ROS: Review of Systems Constitutional: Negative. Respiratory: Negative. Cardiovascular: Negative. Gastrointestinal: Negative. Genitourinary: Negative. Musculoskeletal: Negative. Skin: Negative. Neurological: Negative. Psychiatric/Behavioral: Positive for depression. Negative for hallucinations, substance abuse and suicidal ideas. The patient is nervous/anxious and has insomnia. Definitely improve all the issues with the current medications Medications: Current Outpatient Medications: ??? Albuterol Sulfate [...] by Nasal route., Disp: , Rfl: ??? buPROPion 75 MG tablet, Take 2 tablets (150 mg total) by mouth 2 (two) times daily., Disp: 120 tablet, Rfl: 2 ??? busPIRone 15 MG tablet, Take 1 tablet (15 mg total) by mouth 2 (two) times daily., Disp: 60 tablet, Rfl: 2 ??? citalopram 10 MG tablet, Take 1 tablet (10 mg total) by mouth daily., Disp: 30 tablet, Rfl: 2 ??? conjugated estrogens 0.625 MG/GM vaginal cream, Place 0.5 g vaginally twice a week., Disp: , Rfl: ??? OOR-KPM-Bfibzmz E (OMEGA-3 COMPLEX) 192-251-11 MG-MG-UNIT Cap, Take 1 capsule by mouth daily., Disp: , Rfl: ??? dicyclomine 20 MG tablet, Take 1 tablet (20 mg total) by mouth every 6 (six) hours., Disp: 120 tablet, Rfl: 0 ??? etanercept [...] mouth daily as needed., Disp: , Rfl: Allergies Allergen Reactions ??? Levofloxacin Hallucinations, Nausea Only, Nausea and Vomiting and Other (see comment) hallucinations Other reaction(s): Other hallucinations Past Medical History: Diagnosis Date ??? Anxiety Past Surgical History: Procedure Laterality Date ??? CHOLECYSTECTOMY ??? LAMINECTOMY,LUMBAR ??? SEPTOPLASTY Social History Socioeconomic History ??? Marital status: Spouse name: Cl ??? Number of children: 4 ??? Years of education: Not on file ??? Highest education level: Master's degree (e.g., MA, MS, Howard, MEd, DRAGSAW OPERATOR, KEKE) Occupational History ??? 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 Financial resource strain: Not on file ??? Food insecurity: Worry: Not on file Inability: Not on file ??? Transportation needs: Medical: Not on file Non-medical: Not on file Tobacco Use ??? Smoking status: Former Smoker Packs/day: 0.25 Years: 4.00 Pack years: 1.00 Types: Cigarettes Last attempt to quit: 1990 Years since quittin.7 ??? Smokeless tobacco: Never Used ??? Tobacco comment: socially Substance and Sexual Activity ??? Alcohol use: No Frequency: Never ??? Drug use: No ??? Sexual activity: Not on file Lifestyle ??? Physical activity: Days per week: Not on file Minutes per session: Not on file ??? Stress: Not on file Relationships ??? Social connections: Talks on phone: Not on file Gets together: Not on file Attends latter day service: Not on file Active member of club or organization: Not on file Attends meetings of clubs or organizations: Not on file Relationship status: Not on file ??? Intimate partner violence: Fear of current or ex partner: Not [...] ??? Self Care Yes Social History Narrative ??? Not on file Family History Problem Relation Name Age of Onset ??? COPD Mother ??? Other (mva) Father Family Status Relation Name Status ??? Mother Alive ??? Father Physical Exam Constitutional: She is oriented to person, place, and time. She appears well- developed and well-nourished. Neck: Normal range of motion. Neck supple. Cardiovascular: Normal rate, regular rhythm and normal heart sounds. Exam reveals no gallop and no friction rub. No murmur heard. Pulmonary/Chest: Effort normal and breath sounds normal. No respiratory distress. She has no wheezes. She has no rales. She exhibits no tenderness. Abdominal: Soft. Bowel sounds are normal. She exhibits no distension and no mass. There is no tenderness. There is no rebound and no guarding. Musculoskeletal: Normal range of motion. She exhibits no edema, tenderness or deformity. Neurological: She is alert and oriented to person, place, and time. She has normal reflexes. No cranial nerve deficit. Coordination normal. Skin: Skin is warm and dry. No rash noted. No erythema. Psychiatric: Her speech is normal and behavior is normal. Judgment and thought content normal. Her mood appears anxious. Cognition and memory are normal. She does not exhibit a depressed mood. Nursing note and vitals reviewed. Assessment Encounter Diagnose(s) ICD-10-CM ICD-9-CM SNOMED CT(R) 1. DURAN (generalized anxiety disorder) F41.1 300.02 GENERALIZED ANXIETY DISORDER ALPRAZolam 0.25 MG tablet busPIRone 15 MG tablet citalopram 10 MG tablet 2. Anxiety F41.9 300.00 ANXIETY buPROPion 75 MG tablet Plan at this time she is going to continue with all the medications and she will be using very low-dose Xanax as needed she continues going to counseling therapy and she enjoys that so that is good Iwill see her back in 3 months Orders Placed This Encounter ??? Ascorbic Acid (VITAMIN C) 100 MG tablet ??? ALPRAZolam 0.25 MG tablet ??? buPROPion 75 MG tablet ??? busPIRone 15 MG tablet ??? citalopram 10 MG tablet Follow up FU 3 MONTHS JASPREET MADSEN MD 08/02/2019 7:52 PM documented in this encounter Plan of Treatment Upcoming Encounters Date Type Department Care Team (Late st Contact Info) Description 11/14/2024 8:00 AM ADVERTISING CAMPAIGN MANAGER Office Visit [facility] Multispecialty Care - [address], [address] [place] [phone] Montserrat Oliver NP 3 [facility] [address] [place] [address] 12/06/2024 9:30 AM ADVERTISING CAMPAIGN MANAGER Appointment [facility] [address] [place] [address] [place] [address] [facility] [address]. [address] [place] [address] 03/02/2025 3:20 PM CDT Office Visit [facility] Family & Internal Medicine - [address] [phone] [place] [address] [facility] [address]. [address] [place] [phone] documented as of this encounter Visit Diagnoses Diagnosis DURAN (generalized anxiety disorder)- Primary Generalized anxiety disorder Anxiety Anxiety state, unspecified Recurrent major depressive disorder, in partial remission ([facility]) documented in this encounter Additional Health Concerns Assessment Noted Time PHQ-9 Depression Total Score: 4 05/01/20 19 3:05 PM CDT documented as of this encounter Care Teams Cocoa Bean Cleaner Relationship Specialty Start Date End Date Jaspreet Madsen MD PCP - General INTERNAL MEDICINE 11/30/18 02/18/23 documented as of this encounter
--- OUTSIDE RECORDS SUMMARY | 2024-11-13 17:13 | XMS_ITS | Encounter Summary ---
Author Organization [facility] Address [address] [place] [address]. [place], [place] [address] [place] [address] Care Team Providers Care Lime Sludge Mixer Name Role Phone Jaspreet Pearl MD Primary Care Provider U Kelsey Dey NP Primary Care Provider [phone] Dayanara Plaza MD Primary Care Provider [phone] Perez Cervantes MD Unavailable Adriana Ma MD Unavailable [phone] Encounter Details Date Type Department Care Team (Late st Contact Info) Description 11/11/2020 Verdezynet Message Enc [facility] Family & Internal Medicine [address] [address] Jaspreet Pearl MD RE: Referral Request Social History Tobacco Use Types Packs/Day [...] Master's degree (e.g., MA, MS, Howard, MEd, PUMP TESTER, KEKE) 12/21/2018 Comments No Sex and Gender Information Value Date Recorded Sex Assigned at Not on file Legal Sex Female 8:16 PM CDT Gender Identity Not on file Sexual Orientation Not on file 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 STANT EDITOR documented in this encounter Plan of Treatment Upcoming Encounters Date Type Department Care Team (Late st Contact Info) Description 11/14/2024 8:00 AM ASSISTANT EDITOR Office Visit [facility] Multispecialty Care - [address], [address] [place] [phone] Montserrat Oliver NP [address] [place] [address] [place] [address] 12/06/2024 9:30 AM ASSISTANT EDITOR Appointment [facility] Open MRI [address] [place] [address] [place] [address] [facility]. [address] [place] [address] 03/02/2025 3:20 PM CDT Office Visit [facility] Medical Group Family & Internal Medicine - [address] [address] [place] [address] [facility]. [address] [place] [address] documented as of this encounter Visit Diagnoses Not on filedocumented in this encounter Additional Health Concerns Infection Onset Date Last Indicated Resolved Time COVID-19 Rule Out 03/14/2021 03/14/2021 03/15/2021 1:26 PM CDT COVID-19 Rule Out 04/03/2024 04/03/2024 04/03/2024 11:38 AM CDT Assessment Noted Time PHQ-9 Depression Total Score: 4 05/01/20 3:05 PM CDT documented as of this encounter Care Teams Lime Sludge Mixer Relationship Specialty Start Date End Date Jaspreet Pearl MD PCP - General INTERNAL MEDICINE 11/30/18 02/18/23 Kelsey Kc, DOREEN [address] [place] [address] PCP - General Nurse Practitioner Family 02/19/23 02/28/23 [place] [address] [address] [place] [address] PCP - General FAMILY PRACTICE 03/01/23 Perez Cervantes MD [address] [phone] RHEUMATOLOGY 09/02/23 Adriana Ma MD [address] [place] [address] Referring Physician ALLERGY 09/02/23 documented as of this encounter
--- OUTSIDE RECORDS SUMMARY | 2024-11-13 17:13 | XMS_ITS | Encounter Summary ---
Author Organization [facility] Address [address] [place] [address]. [place] [address] [place] [address] Care Team Providers Care Casino Cage Manager Name Role Phone Jaspreet Pearl MD Primary Care Provider Felipe rangel Encounter Details Date Type Department Care Team (Latest Contact Info) Description 08/03/2019 Scan HEALTH INFO SRVCS Scanned, Documents Social [...] Master's degree (e.g., MA, MS, Howard, MEd, SYSTEM SPECIALIST, KEKE) 12/21/2018 Comments No Sex and [...] (Late Contact Info) Description 11/14/2024 8:00 AM PREPARED FOODS TEAM LEADER Office Visit [facility] Multispecialty Care - [facility] [address] [facility], [address] [place] [address] Montserrat Oliver, DOREEN [address] [place] [address] 12/06/2024 9:30 AM PREPARED FOODS TEAM LEADER [facility] [address] [place] [address] [place] [address] [place] [address] 03/02/2025 3:20 PM CDT Office Visit [facility] Medical Group Family & Internal Medicine - [address] [phone] [place] [address] [place] [address] documented as of this encounter Visit Diagnoses Not on filedocumented in this encounter Additional Health Concerns Assessment Noted Time PHQ-9 Depression Total Score: 4 05/01/20 19 3:05 PM CDT documented as of this encounter Care Teams Casino Cage Manager Relationship Specialty Start Date End Date Jaspreet Pearl MD PCP - General INTERNAL MEDICINE 11/30/18 02/18/23 documented as of this encounter
--- OUTSIDE RECORDS SUMMARY | 2024-11-13 17:13 | XMS_ITS | Encounter Summary ---
Author Organization [facility] Address [address] [place] [address]. [place] [address] [place] [address] Care Team Providers Care Metal Sponge Making Machine Operator Name Role Phone Jaspreet Pearl MD Primary Care Provider Felipe rangel Encounter Details Date Type Department Care Team (Latest Contact Info) Description 11/19/2020 Travel Social History Tobacco Use Types Packs/Day [...] Master's degree (e.g., MA, MS, Howard, MEd, ARCHITECTURAL PROJECT CAPTAIN, KEKE) 12/21/2018 Comments No Sex and Gender [...] COVID-19? No / Unsure 11/19/2020 5:38 PM BROODMARE BARN GROOM documented as of this encounter Plan of Treatment Upcoming Encounters Date Type Department Care Team (Late st Contact Info) Description 11/14/2024 8:00 AM BROODMARE BARN GROOM Office Visit [facility] Multispecialty Care - [facility] [address] [facility], [address] [place] [address] Montserrat Oliver, DOREEN [address] [facility] [address] [place] [address] 12/06/2024 9:30 AM BROODMARE BARN GROOM Appointment [facility] Open MRI [address] [place] [address] [place] [address] [facility] [place] [address] 03/02/2025 3:20 PM CDT Office Visit [facility] Family & Internal Medicine - [address] [phone] [place] [address] [facility]. [address] [place] [address] documented as of this encounter Visit Diagnoses Not on filedocumented in this encounter Additional Health Concerns Assessment Noted Time PHQ-9 Depression Total Score: 4 05/01/20 19 3:05 PM CDT documented as of this encounter Care Teams Metal Sponge Making Machine Operator Relationship Specialty Start Date End Date Jaspreet Pearl MD PCP - General INTERNAL MEDICINE 11/30/18 02/18/23 documented as of this encounter
--- OUTSIDE RECORDS SUMMARY | 2024-11-13 17:13 | XMS_ITS | Encounter Summary ---
Author Organization [facility] Address [address] [place] [address]. [place], [place] [phone] [place] [address] Care Team Providers Care Vessel Scrapper Helper Name Role Phone Jaspreet Madsen MD Primary Care Provider U raynaailable Reason for Visit * Reason Comments Hoarseness onset- yest Sore Throat Cough Post Nasal Drainage Blisters Encounter Details Date Type Department Care Team (Late st Contact Info) Description 10/11/2019 1:20 PM DIRECTOR SOFTWARE Office Visit [facility] [place] [facility] Medical Group Family & Internal Medicine [address] [address] Jaspreet Madsen MD Hoarseness (onset- yest); Sore Throat; Cough; Post Nasal Drainage; Blisters Social History Tobacco Use Types Packs/Day Years [...] 11/15 PHQ-2 Answer Date Recorded PHQ-2 Score 1 10/11/2019 Education Answer Date Recorded What is the highest level of school you have completed or the highest degree you have received? Master's degree (e.g., MA, MS, Howard, MEd, METAL SPRAYING MACHINE OPERATOR, KEKE) 12/21/2018 Comments No Sex [...] Sign Reading Time Taken Comments Blood Pressure 112/78 10/11/2019 1:18 PM DIRECTOR SOFTWARE Pulse 83 10/11/2019 1:18 PM DIRECTOR SOFTWARE Temperature 37 ??C (98.6 ??F) 10/11/2019 1:18 PM DIRECTOR SOFTWARE Respiratory Rate 18 10/11/2019 1:18 PM DIRECTOR SOFTWARE Oxygen Saturation 98% 10/11/2019 1:18 PM DIRECTOR SOFTWARE Inhaled Oxygen Concentration - - Weight 76.3 kg (168 lb 3.2 oz) 10/11/2019 1:18 P M DIRECTOR SOFTWARE Height 175.3 cm (5' 9 ) 10/11/2019 1:18 PM DIRECTOR SOFTWARE Body Mass Index 24.84 10/11/2019 1:18 PM DIRECTOR SOFTWARE documented in this encounter Patient Instructions * Patient Instructions* Jaspreet Madsen MD - 10/11/2019 1:20 PM DIRECTOR SOFTWARE Thank you CTOR SOFTWARE documented in this encounter Progress Notes * Jaspreet Madsen MD - 10/11/2019 1:20 PM CST Reason for Visit: Hoarseness (onset- yest); Sore Throat; Cough; Post Nasal Drainage; and Blisters Filed Vitals: 10/11/19 1318 BP: 112/78 Pulse: 83 Resp: 18 Temp: 98.6 ??F (37 ??C) SpO2: 98% Weight: 76.3 kg (168 lb 3.2 oz) Height: 5' 9 (1.753 m) Body mass index is 24.84 kg/m??. History of Present Illness: HPI good afternoon of his visit and Mrs. Pascual 54-year-old lady comes today with 3 days of upper respiratory infection cough and some yellow-greenish phlegm nasal congestion and hoarseness some low-grade temperature her voice is very nasal ROS: Review of Systems Constitutional: Positive for fever and malaise/fatigue. HENT: Positive for congestion, sinus pain and sore throat. Hoarseness Eyes: Negative. Respiratory: Negative. Cardiovascular: Negative. Genitourinary: Negative. Musculoskeletal: Negative. Skin: Negative. Neurological: Positive for headaches. Psychiatric/Behavioral: Negative. Medications: Current Outpatient Medications: ??? Albuterol Sulfate [...] DAILY, Disp: 6 tablet, Rfl: 0 ??? buPROPion 75 MG tablet, Take 2 [...] twice a week., Disp: , Rfl: ??? VYA-OOV-Sliahzj E (OMEGA-3 COMPLEX) [id number] MG-MG-UNIT Cap, Take [...] degree (e.g., MA, MS, Howard, MEd, METAL SPRAYING MACHINE OPERATOR, KEKE) Occupational History ??? 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 Financial resource strain: Not on file ??? Food insecurity: Worry: Not on file Inability: Not on file ??? Transportation needs: Medical: Not on file Non-medical: Not on file Tobacco Use ??? Smoking status: Former Smoker Packs/day: 0.25 Years: 4.00 Pack years: 1.00 Types: Cigarettes Last attempt to quit: 1990 Years since quittin.9 ??? Smokeless tobacco: Never [...] file Gets together: Not on file Attends [employer] service: Not on file Active member of [...] She appears well- developed and well-nourished. HENT: Right Ear: External ear normal. Left Ear: External ear normal. Nose: Nose normal. Mouth/Throat: Oropharyngeal exudate present. She is very hoarse and nasal congestion noted posterior drainage noted no adenopathies the neck Eyes: EOM are normal. Pupils are equal, round, and reactive to light. Neck: Normal range of motion. Neck supple. Cardiovascular: Normal rate, regular rhythm and normal heart sounds. Exam reveals no gallop and no friction rub. No murmur heard. Pulmonary/Chest: Effort normal and breath sounds normal. No respiratory distress. She has no wheezes. She has no rales. She exhibits no tenderness. Lungs are coarse but no evidence of crepitance is or consolidation or rhonchi's Abdominal: Soft. Bowel sounds are normal. She [...] dry. No rash noted. No erythema. Psychiatric: She has a normal mood and affect. Her behavior is normal. Judgment and thought contentnormal. She is been doing very well from the anxiety she said that since last time she saw me that she has not used any Xanax at all she still working with a counselor. Nursing note and vitals reviewed. Assessment Encounter Diagnose(s) ICD-10-CM ICD-9-CM SNOMED CT(R) 1. Upper respiratory tract infection, unspecified type J06.9 465.9 UPPER RESPIRATORY INFECTION azithromycin (ZITHROMAX) 250 MG tablet Plan at this time I would like to give her the Zithromax pack encouraged her to drink plenty of fluids take a nice hot shower at bedtime with a lot of steam for her laryngitis in some [id number] medication for cough if needed Orders Placed This Encounter ??? azithromycin (ZITHROMAX) 250 MG tablet Follow up FU PRN JASPREET MADSEN MD 10/11/2019 1:43 PM CTOR SOFTWARE documented in this encounter Plan of Treatment Upcoming Encounters Date Type Department Care Team (Late st Contact Info) Description 11/14/2024 8:00 AM DIRECTOR SOFTWARE Office Visit [facility] Multispecialty Care - [facility] [address] [facility], [address] [place] [phone] Montserrat Oliver NP [address] [facility] [address] [place] [address] 12/06/2024 9:30 AM DIRECTOR SOFTWARE Appointment [facility] Open MRI [address] [place] [address] [place] [address] [address] [place] [address] 03/02/2025 3:20 PM CDT Office Visit [facility] Medical Group Family & Internal Medicine [facility] [address] [place] [address] [place] [address] [facility]. [address] [place] [address] documented as of this encounter Visit Diagnoses Diagnosis Upper respiratory tract infection, unspecified type- Primary Recurrent major depressive disorder, in partial remission (CMS/HCC) DURAN (generalized anxiety disorder) Generalized anxiety disorder documented in this encounter Additional Health Concerns Assessment Noted Time PHQ-9 Depression Total Score: 4 05/01/20 19 3:05 PM CDT documented as of this encounter Care Teams Vessel Scrapper Helper Relationship Specialty Start Date End Date Jaspreet Madsen MD PCP - General INTERNAL MEDICINE 11/30/18 02/18/23 documented as of this encounter
--- OUTSIDE RECORDS SUMMARY | 2024-11-13 17:13 | XMS_ITS | Encounter Summary ---
Author Organization [facility] Address [address] [place] [address]. [place] [address] [place] [address] Care Team Providers Care Heel Stainer Name Role Phone Jaspreet Pearl MD Primary Care Provider Felipe rangel Encounter Details Date Type Department Care Team (Latest Contact Info) Description 05/20/2020 Travel Social History Tobacco Use Types Packs/Day [...] Master's degree (e.g., MA, MS, Howard, MEd, CAMPAIGN ASSOCIATE, KEKE) 12/21/2018 Comments No Sex and Gender [...] have Coronavirus / COVID-19? No / Unsure 05/20/2020 10:57 AM CDT documented as of this encounter Plan of Treatment Upcoming Encounters Date Type Department Care Team ( Contact Info) Description 11/14/2024 8:00 AM WELLNESS SPA MANAGER Office Visit [facility] Multispecialty Care - [facility] [address] [facility], [address] [place] [address] Montserrat Oliver NP [address] [facility] [address] [place] [address] 12/06/2024 9:30 AM WELLNESS SPA MANAGER Appointment [facility] Open MRI [address] [facility] [place] [address] [place] [address] [facility] [place] [address] 03/02/2025 3:20 PM CDT Office Visit [facility] Family & Internal Medicine - [address] [phone] [place] [address] [facility]. [address] [place] [id number] documented as of this encounter Visit Diagnoses Not on filedocumented in this encounter Additional Health Concerns Assessment Noted Time PHQ-9 Depression Total Score: 4 05/01/20 19 3:05 PM CDT documented as of this encounter Care Teams Heel Stainer Relationship Specialty Start Date End Date Jaspreet Pearl MD PCP - General INTERNAL MEDICINE 11/30/18 02/18/23 documented as of this encounter
--- OUTSIDE RECORDS SUMMARY | 2024-11-13 17:13 | XMS_ITS | Encounter Summary ---
Author Organization [facility] Address [address] [place] [address]. [place] [address] [place] [address] Care Team Providers Care E Marketing Specialist Name Role Phone Jaspreet Madsen MD Primary Care Provider U juan carlos Reason for Visit * Reason Comments Cough started at the end o july and getting worse since Runny Nose Mouth/Lip Problem palet is very itchy- has seen her Product Strategy Director recently- takes Arabella every day Encounter Details Date Type Department Care Team (Late st Contact Info) Description 09/02/2020 4:00 PM CDT Telemedicine [facility] Medical Group Family & Internal Medicine [address] [address] Felicia Yang, ASSOCIATE ACCOUNT EXECUTIVE [address] [address] Cough (started at the end of July and getting worse since); Runny Nose; Mouth/Lip Problem (palet is very itchy- has seen her Product Strategy Director recently- takes Arabella every day ) Social History Tobacco Use Types Packs/Day [...] Master's degree (e.g., MA, MS, Howard, MEd, BROOM WORKER, KEKE) 12/21/2018 Comments No Sex and [...] Pressure - - Pulse - - Temperature 36.7 ??C (98.1 ??F) 09/02/2020 1 0:14 AM CDT patient reported Respiratory Rate - - Oxygen Saturation - - Inhaled Oxygen Concentration - - Weight - - Height - - Body Mass Index - - documented in this encounter Progress Notes * Felicia Yang, RYLIE - 09/02/2020 4:00 PM CDT Reason for Visit: Cough (started at the end of July and getting worse since), Runny Nose, and Mouth/Lip Problem (palet is very itchy- has seen her Product Strategy Director recently- takes Arabella every day ) History of Present Illness: Hans Pascual is a 55-year-old female who presents via video visit with complaints of cough, post nasal drainage, and fatigue. Hans was treated a few weeks ago with similar symptoms, but notes that the cough has gotten worse and keeping her up at night. She notes post nasal drainage and productive cough of clear sputum. She reports ongoing fatigue related to inability to sleep related tocough. She reports feeling a swoosh or crackle in her ear, but denies any ear pain. She was tested for covid today per her work's request. She denies fever, chills, congestion, sore throat, SOB, nausea, vomiting, diarrhea, myalgia or dizziness. She does report intermittent headaches that resolve on their own. She has no additional concerns today. I introduced and identified myself, received verbal consent?? from the patient to proceed with thisvideo visit and made the patient aware that the same confidentiality and information writer practices apply. The patient joined the video visit from Home. I completed the virtual visit from Office.The following clinical staff helped with this visit MA: Rhina Mcfarland Total Time Spent in Minutes: 10 ROS: Review of Systems Constitutional: Positive for fatigue. Negative for chills and fever. HENT: Positive for postnasal drip. Negative for congestion, ear pain, rhinorrhea and sore throat. Respiratory: Positive for cough and sputum production. Negative for shortness of breath and wheezing. Gastrointestinal: Negative for diarrhea, nausea and vomiting. Musculoskeletal: Negative for myalgias. Neurological: Positive for headaches. Negative for dizziness. Psychiatric/Behavioral: Positive for sleep disturbance. Medications: Current Outpatient Medications: ??? Albuterol Sulfate [...] ??? azithromycin (ZITHROMAX) 250 MG tablet, Take 2 tablets on day 1; then take 1 tablet daily days 2-5, Disp: 6 tablet, Rfl: 0 ??? BUSPIRONE 15 MG tablet, TAKE 1 TABLET BY MOUTH TWICE A DAY, Disp: 60 tablet, Rfl: 2 ??? CITALOPRAM 10 MG tablet, TAKE 1 TABLET BY MOUTH DAILY, Disp: 30 tablet, Rfl: 2 ??? UOS-AHE-Fqtrdnd E (OMEGA-3 COMPLEX) 192-251-11 MG-MG-UNIT Cap, Take [...] by mouth daily., Disp: , Rfl: ??? guaiFENesin-codeine (CHERATUSSIN AC) 100-10 MG/5ML syrup, Take 5 mLs by mouth every 6 (six) hours as needed for Cough. Indications: Cough, Disp: 118 mL, Rfl: 0 ??? methotrexate 2.5 MG tablet, TAKE 8 [...] as needed. , Disp: , Rfl: ??? buPROPion 75 MG tablet, Take 2 tablets (150 mg total) by mouth 2 (two) times daily., Disp: 120 tablet, Rfl: 2 Allergies Allergen Reactions ??? Levofloxacin Hallucinations, Nausea [...] Master's degree (e.g., MA, MS, Howard, MEd, BROOM WORKER, KEKE) Occupational History ??? 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 Financial resource strain: Not on file ??? Food insecurity Worry: Not on file Inability: Not on file ??? Transportation needs Medical: Not on file Non-medical: Not on file Tobacco Use ??? Smoking status: Former Smoker Packs/day: 0.25 Years: 4.00 Pack years: 1.00 Types: Cigarettes Quit date: 1989 Years since quittin.8 ??? Smokeless tobacco: Never Used ??? Tobacco [...] file Gets together: Not on file Attends temple service: Not on file Active member of [...] Social History Narrative ??? Not on file E-Cigarettes Questions Responses E-Cigarette Use Never User Family History Problem Relation Name Age of Onset ??? COPD Mother ??? Other (mva) Father Family Status Relation Name Status ??? Mother Alive ??? Father Physical Exam Vitals signs and nursing note reviewed. Constitutional: General: She is awake. She is not in acute distress. Appearance: Normal appearance. She is not ill-appearing or toxic-appearing. Comments: Vitals and Assessment are both limited due to video visit. HENT: Head: Normocephalic and atraumatic. Right Ear: Hearing and external ear normal. Left Ear: Hearing and external ear normal. Eyes: General: Lids are normal. Extraocular Movements: Extraocular movements intact. Conjunctiva/sclera: Conjunctivae normal. Neck: Musculoskeletal: Normal range of motion. Pulmonary: Effort: Pulmonary effort is normal. No tachypnea, bradypnea, accessory muscle usage, prolonged expiration, respiratory distress or retractions. Neurological: Mental Status: She is alert and oriented to person, place, and time. Psychiatric: Attention and Perception: Attention and perception normal. Mood and Affect: Mood and affect normal. Speech: Speech normal. Behavior: Behavior normal. Behavior is cooperative. Thought Content: Thought content normal. Cognition and Memory: Cognition and memory normal. Judgment: Judgment normal. Filed Vitals: 09/02/20 1014 Temp: 98.1 ??F (36.7 ??C) TempSrc: Oral Diagnoses/Impression: 1. Cough guaiFENesin-codeine (CHERATUSSIN AC) 100-10 MG/5ML syrup azithromycin (ZITHROMAX) 250 MG tablet Recommendations and Plan: 1. Cough - guaiFENesin-codeine (CHERATUSSIN AC) 100-10 MG/5ML syrup; Take 5 mLs by mouth every 6 (six) hoursas needed for Cough. Indications: Cough Dispense: 118 mL; Refill: 0 - azithromycin (ZITHROMAX) 250 MG tablet; Take 2 tablets on day 1; then take 1 tablet daily days 2-5 Dispense: 6 tablet; Refill: 0 - will call with covid testing results from today at [facility] Return to clinic with new, persistent, or worsening symptoms. [facility] is in agreement toand verbalized understanding of treatment plan with no further questions at this time. Orders Placed This Encounter ??? DISCONTD: methylPREDNISolone, SALLY, 4 MG tablet ??? guaiFENesin-codeine (CHERATUSSIN AC) 100-10 MG/5ML syrup ??? azithromycin (ZITHROMAX) 250 MG tablet Reviewed and updated this visit by provider: RYLIE VILLANUEVA Referring Provider: No ref. provider found PCP: JASPREET MADSEN MD Cosigned by Clement Young MD at 09/02/2020 7:57 PM CDT documented in this encounter Plan of Treatment Upcoming Encounters Date Type Department Care Team (Late st Contact Info) Description 11/14/2024 8:00 AM INTERVENTIONAL RADIOLOGY TECHNOLOGIST Office Visit [facility] Multispecialty Care - [facility] [address] [facility], [address] [place] [address] Montserrat Oliver NP 3 [facility] [address] [place] [address] 12/06/2024 9:30 AM INTERVENTIONAL RADIOLOGY TECHNOLOGIST Appointment [facility] Open MRI [address] [place] [address] [place] [address] [facility]. [address] [place] [address] 03/02/2025 3:20 PM CDT Office Visit [facility] Family & Internal Medicine - [address] [address] [place] [address] [facility]. [address] [place] [address] documented as of this encounter Visit Diagnoses Diagnosis Cough- Primary documented in this encounter Additional Health Concerns Assessment Noted Time PHQ-9 Depression Total Score: 4 05/01/20 19 3:05 PM CDT documented as of this encounter Care Teams E Marketing Specialist Relationship Specialty Start Date End Date Jaspreet Madsen MD PCP - General INTERNAL MEDICINE 11/30/18 02/18/23 documented as of this encounter
--- OUTSIDE RECORDS SUMMARY | 2024-11-13 17:13 | XMS_ITS | Encounter Summary ---
Author Organization [facility] Address [address] [place] [address]. [id number] Care Team Providers Care Clarity Specialists Name Role Phone Jaspreet Pearl MD Primary Care Provider Felipe juan carlos Encounter Details Date Type Department Care Team (Late st Contact Info) Description 11/20/2020 Orders Only [facility] Medical Group Family & Internal Medicine [address] [address] Jaspreet Pearl MD Social History [...] Master's degree (e.g., MA, MS, Howard, MEd, SPORTS ANCHOR, KEKE) 12/21/2018 Comments No Sex and Gender [...] COVID-19? No / Unsure 11/19/2020 5:38 PM INDUSTRIAL LOCOMOTIVE OPERATOR documented as of this encounter Plan of Treatment Upcoming Encounters Date Type Department Care Team (Late st Contact Info) Description 11/14/2024 8:00 AM INDUSTRIAL LOCOMOTIVE OPERATOR Office Visit [facility] Multispecialty Care - [facility] [address] [facility], [address] [place] [address] Montserrat Oliver NP 3 [facility] [address] [place] [address] 12/06/2024 9:30 AM INDUSTRIAL LOCOMOTIVE OPERATOR Appointment [facility] Open MRI [address] [place] [address] [place] [address] [facility]. [address] [place] [address] 03/02/2025 3:20 PM CDT Office Visit [facility] Family & Internal Medicine - [address] [address] [place] [address] [facility]. [address] [place] [address] documented as of this encounter Visit Diagnoses Diagnosis DURAN (generalized anxiety disorder) Generalized anxiety disorder documented in this encounter Additional Health Concerns Assessment Noted Time PHQ-9 Depression Total Score: 4 05/01/20 19 3:05 PM CDT documented as of this encounter Care Teams Clarity Specialists Relationship Specialty Start Date End Date Jaspreet Pearl MD PCP - General INTERNAL MEDICINE 11/30/18 02/18/23 documented as of this encounter
--- OUTSIDE RECORDS SUMMARY | 2024-11-13 17:13 | XMS_ITS | Encounter Summary ---
Author Organization [facility] Address [address] [place] [address]. [place], [place] [address] [place] [address] Care Team Providers Care Shoemaker Apprentice Name Role Phone Jaspreet Madsen MD Primary Care Provider U navailable Reason for Visit * Reason Comments Sore Throat hurts to swallow, re ddened tonsil, no feve,hurts to swallow Encounter Details Date Type Department Care Team (Late st Contact Info) Description 05/20/2020 4:00 PM CDT Telemedicine [facility] Medical Group Family & Internal Medicine [address] [address] Jaspreet Madsen MD Sore Throat (hurts to swallow, reddened tonsil, no feve,hurts to swallow) Social History Tobacco Use Types Packs/Day Years [...] Master's degree (e.g., MA, MS, Howard, MEd, RN PRIOR AUTHORIZATION, KEKE) 12/21/2018 Comments No Sex and Gender [...] Pressure - - Pulse - - Temperature 36.5 ??C (97.7 ??F) 05/20/2020 2:29 PM CD T Respiratory Rate - - Oxygen Saturation - - Inhaled Oxygen Concentration - - Weight 76.2 kg (168 lb) 05/20/2020 2:29 PM CDT Height 172.7 cm (5' 8 ) 05/20/2020 2:29 PM CDT Body Mass Index 25.54 05/20/2020 2:29 PM CDT documented in this encounter Progress Notes * Jaspreet Madsen MD - 05/20/2020 4:00 PM CDT Reason for Visit: Sore Throat (hurts to swallow, reddened tonsil, no feve,hurts to swallow) I introduced and identified myself, received verbal consent from the patient to proceed with this video visit and made the patient aware that the same confidentiality and information clerk brokerage practices apply. The patient joined the video visit from Home. I completed the virtual visit from Office. The following clinical staff helped with this visit DAISY: Bianca. Total Time Spent in Minutes: 10 Filed Vitals: 05/20/20 1429 Temp: 97.7 ??F (36.5 ??C) TempSrc: Oral Weight: 76.2 kg (168 lb) Height: 5' 8 (1.727 m) PainSc: 2 Mild Pain (0-10 Scale) Body mass index is 25.54 kg/m??. History of Present Illness: HPI good afternoon office visit and Mrs. Pascual pleasant 55-year-old lady with 3 to 4 days of sore throat she show me a picture and her tonsil is quite enlarge with what he seems to be a little after on it again this is delay health medicine visit with video. She refer having just may be some low-grade temperature he hurts when he swallows but she looks in good spirit no nausea no vomiting no shortness of breath ROS: Review of Systems HENT: Positive for congestion and sore throat. Negative for ear discharge, hearing loss, nosebleedsand sinus pain. Respiratory: Negative for cough, hemoptysis, sputum production, shortness of breath and wheezing. Medications: Current Outpatient Medications: ??? Ascorbic Acid (VITAMIN C) 100 MG tablet, Take 100 mg by mouth daily., Disp: , Rfl: ??? azithromycin (ZITHROMAX) 250 [...] DAILY, Disp: 30 tablet, Rfl: 2 ??? conjugated estrogens 0.625 MG/GM vaginal cream, Place 0.5 g vaginally twice a week., Disp: , Rfl: ??? TJX-OSY-Pfclklq E (OMEGA-3 COMPLEX) 192-251-11 MG-MG-UNIT Cap, Take [...] bedtime., Disp: 30 tablet, Rfl: 0 ??? azelastine (AZELASTINE) 0.1 % nasal spray, 2 sprays by Nasal route., Disp: , Rfl: ??? buPROPion 75 MG tablet, Take 2 tablets (150 mg total) by mouth 2 (two) times daily., Disp: 120 tablet, Rfl: 2 ??? cefdinir 300 MG Cap capsule, Take 1 capsule (300 mg total) by mouth 2 (two) times daily., Disp:20 capsule, Rfl: 0 ??? TKYLUEVO-RACZHNLAT-KYPGEVQFSFXPNB otic solution, , Disp: , Rfl: Allergies Allergen Reactions [...] Master's degree (e.g., MA, MS, Howard, MEd, RN PRIOR AUTHORIZATION, KEKE) Occupational History ??? 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 Financial resource strain: Not on file ??? Food insecurity: Worry: Not on file Inability: Not on file ??? Transportation needs: Medical: Not on file Non-medical: Not on file Tobacco Use ??? Smoking status: Former Smoker Packs/day: 0.25 Years: 4.00 Pack years: 1.00 Types: Cigarettes Last attempt to quit: 1990 Years since quittin.5 ??? Smokeless tobacco: Never [...] file Gets together: Not on file Attends amish service: Not on file Active member of [...] Physical Exam Constitutional: This was a video visit she looks in good spirit and she showed me a picture of her mouth showing a right tonsil enlarge with some redness and what he seems to be an aphthous lesion in it. Assessment Encounter Diagnose(s) ICD-10-CM ICD-9-CM SNOMED CT(R) 1. Acute pharyngitis, unspecified etiology J02.9 462 ACUTE PHARYNGITIS azithromycin (ZITHROMAX) 250MG tablet Plan recommend to drink plenty of fluids this salt water gargling and I going to send her a prescription for the Z-Steve. Should be better within the next 2 to 3 days duration to stay home. If not better I would like to see her within the next 2 to 3 days Orders Placed This Encounter ??? azithromycin (ZITHROMAX) 250 MG tablet Follow up FU 3 MONTHS JASPREET MADSEN MD 05/20/2020 4:24 PM documented in this encounter Plan of Treatment Upcoming Encounters Date Type Department Care Team (Late st Contact Info) Description 11/14/2024 8:00 AM TECHNICAL WRITER Office Visit [facility] Multispecialty Care - [address], [address] [place] [phone] Montserrat Oilver NP 3 [facility] [address] [place] [address] 12/06/2024 9:30 AM TECHNICAL WRITER Appointment [facility] MRI [address] [place] [address] [place] [address] [facility]. [address] [place] [address] 03/02/2025 3:20 PM CDT Office Visit [facility] Medical [facility] Family & Internal Medicine - [place] [phone] [place] [phone] [place] [address] [facility]. [address] [place] [address] documented as of this encounter Visit Diagnoses Diagnosis Acute pharyngitis, unspecified etiology- Primary documented in this encounter Additional Health Concerns Assessment Noted Time PHQ-9 Depression Total Score: 4 05/01/20 3:05 PM CDT documented as of this encounter Care Teams Shoemaker Apprentice Relationship Specialty Start Date End Date Jaspreet Madsen MD PCP - General INTERNAL MEDICINE 11/30/18 02/18/23 documented as of this encounter
--- OUTSIDE RECORDS SUMMARY | 2024-11-13 17:13 | XMS_ITS | Encounter Summary ---
Author Organization [facility] Address [address] [place] [address]. [place], [place] [address] [place] [address] Care Team Providers Care Business Development Professional Name Role Phone Jaspreet Pearl MD Primary Care Provider U Kelsey Dey BUDGET AND POLICY ANALYST Primary Care Provider [phone] Dayanara Plaza MD Primary Care Provider [phone] Perez Cervantes MD Unavailable Adriana Ma MD Unavailable [phone] Encounter Details Date Type Department Care Team (Late st Contact Info) Description 09/19/2020 ManagerCompletet Message Enc [facility] Medical Group Family & Internal Medicine [address] [address] Jaspreet Pearl MD Medication Questions Social History Tobacco Use Types Packs/Day Years [...] Master's degree (e.g., MA, MS, Howard, MEd, BARREL BRANDER, KEKE) 12/21/2018 Comments No Sex and Gender Information Value Date Recorded Sex Assigned at Not on file Legal Sex Female 8:16 PM CDT Gender Identity Not on file Sexual Orientation Not on file 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 3 [facility], [address] [place] [phone] Montserrat Oliver NP 3 [facility] [address] [place] [address] 12/06/2024 9:30 AM COREMAKER MACHINE Appointment [facility] Open MRI [address] [place] [address] [place] [address] [facility]. [address] [place] [phone] 03/02/2025 3:20 PM CDT Office Visit [facility] Family & Internal Medicine - [address] [phone] [place] [address] [facility]. [address] [place] [address] documented as of this encounter Visit Diagnoses Not on filedocumented in this encounter Additional Health Concerns Infection Onset Date Last Indicated Resolved Time COVID-19 Rule Out 03/14/2021 03/14/2021 03/15/2021 1:26 PM CDT COVID-19 Rule Out 04/03/2024 04/03/2024 04/03/2024 11:38 AM CDT Assessment Noted Time PHQ-9 Depression Total Score: 4 05/01/20 19 3:05 PM CDT documented as of this encounter Care Teams Business Development Professional Relationship Specialty Start Date End Date Jaspreet Pearl MD PCP - General INTERNAL MEDICINE 11/30/18 02/18/23 Kelsey Kc, DOREEN [address] [place] [address] PCP - General Nurse Practitioner Family 02/19/23 02/28/23 [place] [address] [place] [address] PCP - General FAMILY PRACTICE 03/01/23 Perez Cervantes MD [address] [phone] RHEUMATOLOGY 09/02/23 Adriana Ma MD [address] [place], [place] [phone] Referring Physician ALLERGY 09/02/23 documented as of this encounter
--- OUTSIDE RECORDS SUMMARY | 2024-11-13 17:13 | XMS_ITS | Encounter Summary ---
Author Organization [facility] Address [address] [place] [address]. [place], [place] [address] [place] [address] Care Team Providers Care Printer Apprentice Name Role Phone Jaspreet Pearl MD Primary Care Provider Felipe rangel Reason for Visit * Reason Onset Date Comments COVID-19 09/04/2020 Encounter Details Date Type Department Care Team (Late st Contact Info) Description 09/04/2020 Telephone 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 PT made aware and v/u. * RYLIE Villanueva - 09/06/2020 9:28 AM CDT She can have a note to return. She should call with new symptoms prior to her return or once she returns. * Kelsey Morrison RN - 09/06/2020 9:20 AM CDT PT made aware and v/u. PT states she needs a note to return to work wednesday * RYLIE Villanueva - 09/06/2020 9:11 AM CDT Following an illness the cough may last for while post infection. She should not need a visit as long as this is not a new symptom. * Kelsey Morrison RN - 09/06/2020 9:08 AM CDT Nurse called to discuss with pt. She states that she is feeling significantly better today. She took her last Zpack this AM. She does still complain of coughing at night. Does she need a virtual appttoday? 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 Stated she is still feeling pretty crappy and coughing all night long. Stated the cough is notproductive (maybe a little today but not much). Stated no fever but is fatigued and achy. Stated her head hurts a lot at night she thinks from coughing. Stated she is on day 3 of Z pack. 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 Stated she is going to try to answer but does have a meeting with a student at 10:30. C/B# [phone] documented in this encounter Plan of Treatment Upcoming Encounters Date Type Department Care Team (Late st Contact Info) Description 11/14/2024 8:00 AM ENVIRONMENTAL AIR SPECIALIST Office Visit [facility] Medical Group Multispecialty Care - [facility] 3 [facility], [address] [place] [address] Montserrat Oliver, DOREEN 3 [facility] [address] [place] [address] 12/06/2024 9:30 AM ENVIRONMENTAL AIR SPECIALIST Appointment [facility] Open MRI [address] [place] [address] [place] [address] [address] [place], [place] [phone] 03/02/2025 3:20 PM CDT Office Visit [facility] Medical Group Family & Internal Medicine - [place] [id number] [place] [phone] [place] [address] [facility]. [address] [place] [phone] documented as of this encounter Visit Diagnoses Not on filedocumented in this encounter Additional Health Concerns Assessment Noted Time PHQ-9 Depression Total Score: 4 05/01/20 19 3:05 PM CDT documented as of this encounter Care Teams Printer Apprentice Relationship Specialty Start Date End Date Jaspreet Pearl MD PCP - General INTERNAL MEDICINE 11/30/18 02/18/23 documented as of this encounter
--- OUTSIDE RECORDS SUMMARY | 2024-11-13 17:13 | XMS_ITS | Encounter Summary ---
Author Organization [facility] Address [address] [place] [address]. [place], [place] [address] [place] [address] Care Team Providers Care Medical Imaging Specialist Name Role Phone Jaspreet Pearl MD Primary Care Provider U raynaailable Reason for Visit * Imaging (Routine) - Closed Specialty Diagnoses / Procedures Referred By Contac t Referred To Contact RADIOLOGY Diagnoses Visit for screening mammogram Procedures MG SCREENING W KRISTEN VICTORIANO DIGI Stalin Calderón MD [address] [address] Phone: tel: fax: Referral ID Status Reason Start Date Expiration Date Visits Re quested Visits Authorized [id number] Closed 05/13/2020 06/12/2021 1 1 Encounter Details Date Type Department Care Team (Latest Contact Info) Description 07/11/2020 3:21 PM CDT - 07/11/2020 11:59 PM CDT Hospital Encounter [facility] Mammography [address] [place] [address] Stalin Calderón MD [address] [address] Discharge Disposition: Home or Self [...] Master's degree (e.g., MA, MS, Howard, MEd, PHARMACY INNOVATION ASSISTANT, KEKE) 12/21/2018 Comments No Sex and Gender [...] have Coronavirus / COVID-19? No / Unsure 07/11/2020 3:21 PM CDT documented as of this encounter Medications at Time of Discharge etanercept 50 MG/ML injection Inject 1 mL (50 mg total) into the skin weekly. 05/30/2014 methotrexate 2.5 MG tablet Take by mouth once a week. Take 6 tablets every 7 days. 06/06/2018 valACYclovir 1 g tablet as needed. 10/10/2019 Albuterol Sulfate (PROAIR RESPICLICK) 108 (90 Base) MCG/ACT AEROSOL POWDER, BREATH ACTIVATED Inhale 2 puffs into the lungs 4 (four) times daily as needed. 05/19/2018 1 ALPRAZolam 0.25 MG tabletIndications: DURAN (generalized anxiety disorder) Take 1 tablet (0.25 mg total) by mouth nightly as needed. at bedtime. 30 tablet 01/26/2020 2 Ascorbic Acid (VITAMIN C) 100 MG tablet Take 1 tablet (100 mg total) by mouth daily. 4 azelastine 0.1 % nasal spray 2 sprays by Nasal route. 3 buPROPion 75 MG tabletIndications: Anxiety Take 2 tablets (150 mg total) by mouth 2 (two) times daily. 120 tablet 2 08/02/2019 1 BUSPIRONE 15 MG tabletIndications: DURAN (generalized anxiety disorder) TAKE 1 TABLET BY MOUTH TWICE A DAY 60 tablet 2 06/13/2020 0 cefdinir 300 MG Cap capsuleIndications :Fever, unspecified fever cause,Acute upper respiratory infection Take 1 capsule (300 mg total) by mouth 2 (two) times daily. 20 capsule 01/10/2020 0 CITALOPRAM 10 MG tabletIndications: DURAN (generalized anxiety disorder) TAKE 1 TABLET BY MOUTH DAILY 30 tablet 2 05/16/2020 0 conjugated estrogens 0.625 MG/GM vaginal cream Place 0.5 g vaginally twice a week. 0 IUG-LQR-Ozovmtw E 192-251-11 MG-MG-UNIT Cap Take 1 capsule [...] mg total) by mouth daily. 06/01/2014 3 folic acid 1 MG tablet TAKE 1 TABLET BY MOUTH DAILY 02/26/2020 0 MONTELUKAST 10 MG tabletIndications: Seasonal allergies TAKE 1 TABLET BY MOUTH DAILY IN THE EVENING 90 tablet 04/06/2019 1 multivitamin tablet Take 2 tablets by mouth daily. 4 nabumetone 500 MG tablet Take 2 tablets by mouth 2 (two) times daily. 10/18/2015 1 NEOMYCIN-POLYMYXIN -HYDROCORTISONE otic solution 07/28/2019 0 polyethylene glycol packet Take 240 mLs (1 packet total) by mouth daily as needed. 4 documented as of this encounter Plan of Treatment Upcoming Encounters Date Type Department Care Team (Late st Contact Info) Description 11/14/2024 8:00 AM MANAGER CLINIC Office Visit [facility] Medical Group Multispecialty Care - [address], [address] [place] [phone] Montserrat Oliver, SENIOR CLINICAL STUDY MANAGER [address] [facility] [address] [place] [address] 12/06/2024 9:30 AM MANAGER CLINIC Appointment [facility] [address] [place] [address] [place] [address] [place] [address] 03/02/2025 3:20 PM CDT Office Visit [facility] Medical Group Family & Internal Medicine - [address] [phone] [place] [address] [place] [address] documented as of this encounter Procedures Procedure Name Priority Date/Time Associated Diagnosis Comments MG SCREENING W KRISTEN VICTORIANO DIGI Routine 07/11/2020 3:40 PM CDT Visit for screening mammogram documented in this encounter Results * MG SCREENING W KRISTEN VICTORIANO DIGI (07/11/2020 3:40 PM CDT) Anatomical Region Laterality Modality Breast Bilateral Mammography 07/11/2020 5:02 PM CDT Impressions 07/11/2020 5:03 PM CDT IMPRESSION: No suspicious change since the previous exams. Recommendation: 1: Routine screening mammogram ??Bilateral ?? in 1 Year Assessment: ACR BI-RADS Category 2 - Benign. Interpreted By: Lee Saldivar MD, 07/11/2020 5:02 PM Narrative 07/11/2020 5:03 PM CDT Examination: Digital screening mammogram with CAD. Clinical history: Asymptomatic patient presents for routine screening. Comparison: 05/31/2019, 06/23/2018, 06/22/2017, 06/15/2016. Technique: Bilateral digital mammograms. The exam was [...] documented as of this encounter Care Teams Medical Imaging Specialist Relationship Specialty Start Date End Date Jaspreet Pearl MD PCP - General INTERNAL MEDICINE 11/30/18 02/18/23 documented as of this encounter
--- OUTSIDE RECORDS SUMMARY | 2024-11-13 17:13 | XMS_ITS | Encounter Summary ---
Author Organization [facility] Address [address] [place] [address]. [place], [place] [phone] [place] [address] Care Team Providers Care Staff Technologist Name Role Phone Jaspreet Madsen MD Primary Care Provider Felipe rangel Reason for Visit * Reason Onset Date Comments Medication Request 01/26/2020 Encounter Details Date Type Department Care Team (Late st Contact Info) Description 01/26/2020 Telephone [facility] Medical Group Family & Internal Medicine [address] [address] Jaspreet Madsen MD Medication Request Social History Tobacco Use Types Packs/Day [...] Master's degree (e.g., MA, MS, Howard, MEd, PRINTMAKER, KEKE) 12/21/2018 Comments No Sex and Gender Information Value Date Recorded Sex Assigned at Not on file Legal Sex Female 8:16 PM CDT Gender Identity Not on file Sexual Orientation Not on file 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 file documented as of this encounter Progress Notes * Annetta Milton - 01/26/2020 11:51 AM CDT Medication and strength: Citalopram 10mg Pharmacy: [facility] Call back #: [phone] Last office visit at this office: Last visit with JASPREET MADSEN in INTERNAL MEDICINE was on: 01/12/2020 in [facility] Future appointment scheduled: Future Appointments Date Time Provider Department Center 02/07/2020 4:20 PM Jaspreet Madsen MD [facility] documented in this encounter Plan of Treatment Upcoming Encounters Date Type Department Care Team (Late st Contact Info) Description 11/14/2024 8:00 AM PLASTICS BENCH MECHANIC Office Visit [facility] Multispecialty Care - [facility] 3 [facility], [address] [place] [phone] Montserrat Oliver NP 3 [facility] [address] [place] [address] 12/06/2024 9:30 AM PLASTICS BENCH MECHANIC Appointment [facility] Open MRI [address] [place] [address] [place] [address] [facility] [address] [place] [address] 03/02/2025 3:20 PM CDT Office Visit [facility] Family & Internal Medicine - [address] [phone] [place] [address] [facility]. [address] [place] [address] documented as of this encounter Visit Diagnoses Diagnosis DURAN (generalized anxiety disorder) Generalized anxiety disorder documented in this encounter Additional Health Concerns Assessment Noted Time PHQ-9 Depression Total Score: 4 05/01/20 19 3:05 PM CDT documented as of this encounter Care Teams Staff Technologist Relationship Specialty Start Date End Date Jaspreet Madsen MD PCP - General INTERNAL MEDICINE 11/30/18 02/18/23 documented as of this encounter
--- OUTSIDE RECORDS SUMMARY | 2024-11-13 17:13 | XMS_ITS | Encounter Summary ---
Author Organization [facility] Address [address] [place] [address]. [place], [place] [address] [place] [address] Care Team Providers Care Service Order Expediter Name Role Phone Jaspreet Madsen MD Primary Care Provider U raynaailelijah Reason for Visit * Reason Comments Cough prod - clr to white Runny Nose no temp, onset- gloria hs Encounter Details Date Type Department Care Team (Late st Contact Info) Description 01/10/2020 2:20 PM NEPHROLOGY SOCIAL WORKER Office Visit [facility] Medical Group Family & Internal Medicine [address] [phone] Jaspreet Madsen MD Cough (prod - clr to white); Runny Nose (no temp, onset- months) Social History Tobacco Use Types Packs/Day Years [...] Master's degree (e.g., MA, MS, Howard, MEd, BRICKLAYER'S ASSISTANT, KEKE) 12/21/2018 Comments No Sex and [...] Sign Reading Time Taken Comments Blood Pressure 110/60 01/10/2020 2:30 PM NEPHROLOGY SOCIAL WORKER Pulse 99 01/10/2020 2:30 PM NEPHROLOGY SOCIAL WORKER Temperature 37.2 ??C (99 ??F) 01/10/2020 2:30 PM NEPHROLOGY SOCIAL WORKER Respiratory Rate 16 01/10/2020 2:30 PM NEPHROLOGY SOCIAL WORKER Oxygen Saturation 98% 01/10/2020 2:30 PM NEPHROLOGY SOCIAL WORKER Inhaled Oxygen Concentration - - Weight 76.7 kg (169 lb 3.2 oz) 01/10/2020 2:30 P M NEPHROLOGY SOCIAL WORKER Height 172.7 cm (5' 8 ) 01/10/2020 2:30 PM NEPHROLOGY SOCIAL WORKER Body Mass Index 25.73 01/10/2020 2:30 PM NEPHROLOGY SOCIAL WORKER documented in this encounter Progress Notes * Jaspreet Madsen MD - 01/10/2020 2:20 PM CST Reason for Visit: Cough (prod - clr to white) and Runny Nose (no temp, onset- months) Filed Vitals: 01/10/20 1430 BP: 110/60 Pulse: 99 Resp: 16 Temp: 99 ??F (37.2 ??C) SpO2: 98% Weight: 76.7 kg (169 lb 3.2 oz) Height: 5' 8 (1.727 m) Body mass index is 25.73 kg/m??. History of Present Illness: HPI good afternoon office visit and Mrs. 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 ROS: Review of Systems Constitutional: Positive for fever and malaise/fatigue. HENT: Positive for congestion, sinus pain and sore throat. Eyes: Negative. Respiratory: Positive for cough. Cardiovascular: Negative. Gastrointestinal: Negative. Musculoskeletal: Negative. Skin: Negative. Neurological: Negative. Psychiatric/Behavioral: Negative. Medications: Current Outpatient Medications: ??? Albuterol Sulfate (PROAIR RESPICLICK) 108 (90 Base) MCG/ACT AEROSOL POWDER, BREATH ACTIVATED, Inhale 2 puffs into the lungs 4 (four) times daily as needed., Disp: , Rfl: ??? Ascorbic Acid (VITAMIN C) 100 MG tablet, Take 100 mg by mouth daily., Disp: , Rfl: ??? azelastine (AZELASTINE) 0.1 % nasal spray, 2 sprays by Nasal route., Disp: , Rfl: ??? buPROPion 75 MG tablet, Take 2 tablets (150 mg total) by mouth 2 (two) times daily., Disp: 120 tablet, Rfl: 2 ??? BUSPIRONE 15 MG tablet, TAKE 1 TABLET BY MOUTH TWICE A DAY, Disp: 60 tablet, Rfl: 2 ??? CITALOPRAM 10 MG tablet, TAKE 1 TABLET BY MOUTH DAILY, Disp: 30 tablet, Rfl: 2 ??? conjugated estrogens 0.625 MG/GM vaginal cream, Place 0.5 g vaginally twice a week., Disp: , Rfl: ??? WNG-ALH-Cnvvowa E (OMEGA-3 COMPLEX) 192-251-11 MG-MG-UNIT Cap, Take 1 capsule by mouth daily., Disp: , Rfl: ??? dicyclomine 20 MG tablet, Take 1 tablet (20 mg total) by mouth every 6 (six) hours., Disp: 120 tablet, Rfl: 0 ??? estradiol 0.1 MG/GM vaginal cream, , Disp: , Rfl: ??? etanercept (ENBREL) [...] , Rfl: ??? valACYclovir 1 g tablet, , Disp: , Rfl: ??? ALPRAZolam 0.25 MG tablet, Take 1 tablet (0.25 mg total) by mouth nightly as needed. at bedtime., Disp: 30 tablet, Rfl: 0 ??? QKCDAHLX-TBUSEAICV-IZEITASOJFCEAZ otic solution, , Disp: , Rfl: Allergies [...] Master's degree (e.g., MA, MS, Howard, MEd, BRICKLAYER'S ASSISTANT, KEKE) Occupational History ??? 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 Financial resource strain: Not on file ??? Food insecurity: Worry: Not on file Inability: Not on file ??? Transportation needs: Medical: Not on file Non-medical: Not on file Tobacco Use ??? Smoking status: Former Smoker Packs/day: 0.25 Years: 4.00 Pack years: 1.00 Types: Cigarettes Last attempt to quit: 1990 Years since quittin.1 ??? Smokeless tobacco: Never Used ??? Tobacco [...] file Gets together: Not on file Attends rastafari service: Not on file Active member of [...] appears well- developed and well-nourished. HENT: Head: Normocephalic and atraumatic. Mouth/Throat: Oropharynx is clear and moist. She sounds congested. Throat is quite congested and erythematous there is some posterior drainage in the back of her nose and throat no adenopathies lungs are congested Eyes: Pupils are equal, round, and reactive to light. EOM are normal. Neck: Normal range of motion. Neck supple. Cardiovascular: Normal rate, regular rhythm and normal heart sounds. Exam reveals no gallop and no friction rub. No murmur heard. Pulmonary/Chest: Effort normal and breath sounds normal. No respiratory distress. She has no wheezes. She has no rales. She exhibits no tenderness. Lung sounds coarse and congested with no evidence of consolidation Abdominal: Soft. Bowel sounds are normal. She exhibits no distension and no mass. There is no tenderness. There is no rebound and no guarding. Musculoskeletal: Normal range of motion. She exhibits no edema, tenderness or deformity. Neurological: She is alert and oriented to person, place, and time. No cranial nerve deficit. Coordination normal. Skin: Skin is warm and dry. No rash noted. No erythema. Psychiatric: She has a normal mood and affect. Her behavior is normal. Judgment and thought contentnormal. Nursing note and vitals reviewed. Assessment Encounter Diagnose(s) ICD-10-CM ICD-9-CM SNOMED CT(R) 1. Fever, unspecified fever cause R50.9 780.60 FEVER INFLUENZA A & B Plan flu test came back negative so she is going to be treated for acute sinusitis cefdinir 300 mg 2 times a day for 10 days and plenty of fluids [id number] medication for cough and congestion Orders Placed This Encounter ? ? INFLUENZA A & B Follow up FU PRN JASPREET MADSEN MD 01/10/2020 2:47 PM ROLOGY SOCIAL WORKER documented in this encounter Plan of Treatment Upcoming Encounters Date Type Department Care Team (Late st Contact Info) Description 11/14/2024 8:00 AM NEPHROLOGY SOCIAL WORKER Office Visit [facility] Multispecialty Care - [address], [address] [place] [phone] Montserrat Oliver NP 3 [facility] [address] [place] [address] 12/06/2024 9:30 AM NEPHROLOGY SOCIAL WORKER Appointment [facility] Open MRI [address] [place] [address] [place] [address] [facility]. [address] [place] [phone] 03/02/2025 3:20 PM CDT Office Visit [facility] Family & Internal Medicine - [place] [address] [place] [phone] [place] [address] [facility]. [address] [place] [phone] documented as of this encounter Procedures Procedure Name Priority Date/Time Associated Diagnosis Comments INFLUENZA A & B Today 01/10/2020 Fever, unspecified fever cause documented in this encounter Results * INFLUENZA A & B (01/10/2020) Pathologist [facility] INFULENZA A AB NEGATIVE NEGATIVE [address] ([address]), [place] INFLUENZA B AB NEGATIVE NEGATIVE [address] ([address]), [place] Internal Control: VALID VALID [address] ([address]), [place] NASOPHARYNGEAL SWAB / Unknown 01/10/2020 us Jaspreet Madsen MD MICROBIOLOGY - GENERAL O RDERABLES Final Result [address] ([address]), [place] [address] [place] [address], documented in this encounter Visit Diagnoses Diagnosis Acute upper respiratory infection- Primary Acute upper respiratory infections of unspecified site Fever, unspecified fever cause documented in this encounter Additional Health Concerns Assessment Noted Time PHQ-9 Depression Total Score: 4 05/01/20 19 3:05 PM CDT documented as of this encounter Care Teams Service Order Expediter Relationship Specialty Start Date End Date Jaspreet Madsen MD PCP - General INTERNAL MEDICINE 11/30/18 02/18/23 documented as of this encounter
--- OUTSIDE RECORDS SUMMARY | 2024-11-13 17:13 | XMS_ITS | Encounter Summary ---
Author Organization [facility] Address [address] [place] [address]. [place], [place] [address] [place] [address] Care Team Providers Care Ladle Watcher Name Role Phone Jaspreet Pearl MD Primary Care Provider Felipe rangel Reason for Visit * Reason Onset Date Comments Question 01/11/2020 Encounter Details Date Type Department Care Team (Late st Contact Info) Description 01/11/2020 Telephone [facility] Medical Group Family & Internal Medicine [address] [phone] Jaspreet Pearl MD Question Social [...] Master's degree (e.g., MA, MS, Howard, MEd, HOST HOSTESS, KEKE) 12/21/2018 Comments No Sex and Gender Information Value Date Recorded Sex Assigned at Not on file Legal Sex Female 8:16 PM CDT Gender Identity Not on file Sexual Orientation Not on file 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 ARC WELDER * AlysiaMary Briggs - 01/11/2020 12:47 PM CST Patient called and stated she is feeling worse today than she did yesterday. Stated her fever has gone up (102.1). She wanted to know if she can take Tylenol with her medications and if the fever is normal for a sinus infection. Please Advise. C/B# [phone] ARC WELDER documented in this encounter Plan of Treatment Upcoming Encounters Date Type Department Care Team (Late st Contact Info) Description 11/14/2024 8:00 AM HELIARC WELDER Office Visit [facility] Medical Group Multispecialty Care - [facility] 3 [facility], [place] [address] Montserrat Oliver NP 3 [facility] [address] [place] [address] 12/06/2024 9:30 AM HELIARC WELDER Appointment [facility] Open [facility] [address] [place] [address] [place] [address] [facility] [address] [place] [address] 03/02/2025 3:20 PM CDT Office Visit [facility] Medical Group Family & Internal Medicine - [place] [address] [place] [phone] [place] [address] [facility] [address] [place] [address] documented as of this encounter Visit Diagnoses Not on filedocumented in this encounter Additional Health Concerns Assessment Noted Time PHQ-9 Depression Total Score: 4 05/01/20 19 3:05 PM CDT documented as of this encounter Care Teams Ladle Watcher Relationship Specialty Start Date End Date Jaspreet Pearl MD PCP - General INTERNAL MEDICINE 11/30/18 02/18/23 documented as of this encounter
--- OUTSIDE RECORDS SUMMARY | 2024-11-13 17:13 | XMS_ITS | Encounter Summary ---
Author Organization [facility] Address [address] [place] [address]. [place] [address] [place] [address] Care Team Providers Care Cardiology Physician Name Role Phone Jaspreet Pearl MD Primary Care Provider Felipe rangel Encounter Details Date Type Department Care Team (Latest Contact Info) Description 07/11/2020 Travel Social History Tobacco Use Types Packs/Day [...] Master's degree (e.g., MA, MS, Howard, MEd, TINT LAYER, KEKE) 12/21/2018 Comments No Sex and Gender [...] ( Contact Info) Description 11/14/2024 8:00 AM ETHICAL HACKER Office Visit [facility] Multispecialty Care - [facility] [address] [facility], [address] [place] [address] Montserrat Oliver NP 3 [facility] [address] [place] [address] 12/06/2024 9:30 AM ETHICAL HACKER Appointment [facility] Open MRI [address] [facility] [place] [address] [place] [address] [facility] [place] [address] 03/02/2025 3:20 PM CDT Office Visit [facility] Family & Internal Medicine - [address] [phone] [place] [address] [facility]. [address] [place] [phone] documented as of this encounter Visit Diagnoses Not on filedocumented in this encounter Additional Health Concerns Assessment Noted Time PHQ-9 Depression Total Score: 4 05/01/20 19 3:05 PM CDT documented as of this encounter Care Teams Cardiology Physician Relationship Specialty Start Date End Date Jaspreet Pearl MD PCP - General INTERNAL MEDICINE 11/30/18 02/18/23 documented as of this encounter
--- OUTSIDE RECORDS SUMMARY | 2024-11-13 17:13 | XMS_ITS | Encounter Summary ---
Author Organization [facility] Address [address] [place] [address]. [place], [place] [address] [place] [address] Care Team Providers Care Metal Molder Name Role Phone Jaspreet Madsen MD Primary Care Provider U juan carlos Reason for Visit * Reason Comments GERD 3 mo ck IBS Arthritis Encounter Details Date Type Department Care Team (Late st Contact Info) Description 11/06/2019 10:20 AM RESIDENT SURGEON Office Visit [facility] Family & Internal Medicine [address] [address] Jaspreet Madsen MD GERD (3 mo ck); IBS; Arthritis Social History Tobacco Use Types Packs/Day Years [...] Master's degree (e.g., MA, MS, Howard, MEd, PLUG MAKING OPERATOR, KEKE) 12/21/2018 Comments No Sex and [...] Sign Reading Time Taken Comments Blood Pressure 100/64 11/06/2019 10:22 AM RESIDENT SURGEON Pulse 78 11/06/2019 10:22 AM RESIDENT SURGEON Temperature 36.4 ??C (97.6 ??F) 11/06/2019 1 0:22 AM RESIDENT SURGEON Respiratory Rate 16 11/06/2019 10:2 2 AM RESIDENT SURGEON Oxygen Saturation 98% 11/06/2019 10: 22 AM RESIDENT SURGEON Inhaled Oxygen Concentration - - Weight 77.9 kg (171 lb 12.8 oz) 019 10:22 AM RESIDENT SURGEON Height 175.3 cm (5' 9 ) 11/06/2019 10:2 2 AM RESIDENT SURGEON Body Mass Index 25.37 11/06/2019 10:22 AM RESIDENT SURGEON documented in this encounter Progress Notes * Jaspreet Madsen MD - 11/06/2019 10:20 AM CST Reason for Visit: GERD (3 mo ck); IBS; and Arthritis Filed Vitals: 11/06/19 1022 BP: 100/64 Pulse: 78 Resp: 16 Temp: 97.6 ??F (36.4 ??C) SpO2: 98% Weight: 77.9 kg (171 lb 12.8 oz) Height: 5' 9 (1.753 m) Body mass index is 25.37 kg/m??. History of Present Illness: HPI new morning office visit and Mrs. [facility] 54-year-old lady with a history of severe anxiety depression asthma today she comes for follow-up she is been doing very well with the currentmedication regimen she is not using the Xanax as much she used to so that is very good she was suggesting to taper off the Wellbutrin but as I see the situation and she is doing very well now I would like to keep with the weight is at least during the winter and once we have the sunshine coming up in the spring that will be time to maybe taper that off and she agrees with that so that is what we will do otherwise she is doing very well with little bit of posterior drainage and she is been usinga lot of the sinus rinsing I encouraged her not to do that. ROS: Review of Systems Constitutional: Negative. HENT: Some posterior drainage Eyes: Negative. Respiratory: Negative. Cardiovascular: Negative. Gastrointestinal: Negative. Genitourinary: Negative. Musculoskeletal: Negative. Skin: Negative. Neurological: Negative. Psychiatric/Behavioral: Positive for depression. Negative for hallucinations, memory loss, substance abuse and suicidal ideas. The patient is nervous/anxious. The patient does not have insomnia. Medications: Current Outpatient Medications: ??? Albuterol Sulfate [...] twice a week., Disp: , Rfl: ??? OBX-EKF-Unriwey E (OMEGA-3 COMPLEX) 192-251-11 MG-MG-UNIT Cap, Take [...] (two) times daily., Disp: , Rfl: ??? KBTBOUZG-TCQDCGKRC-ZGDQLQUAGKAFKU otic solution, , Disp: , Rfl: ??? polyethylene glycol (MIRALAX) packet, Take 1 packet by mouth daily as needed., Disp: , Rfl: ??? 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 HENT: Mouth/Throat: Oropharynx is clear and moist. Eyes: EOM are normal. Pupils are equal, [...] anxiety disorder) F41.1 300.02 GENERALIZED ANXIETY DISORDER 2. Recurrent major depressive disorder, in partial remission ([facility]) F33.41 296.35 RECURRENT MAJOR DEPRESSION IN PARTIAL REMISSION Plan continue current medications for now I will see her back in 3 months at which time we may taper off some of the medications if she is doing fine otherwise continue with medicines continue with counseling and again we had a discussion of few things about anxiety and how to deal with stress in life. Orders Placed This Encounter ??? DISCONTD: ALPRAZolam 0.25 MG tablet ??? estradiol 0.1 MG/GM vaginal cream ??? ORYHAQGO-RFVTIKTSZ-QBJCMPCSRMVUWM otic solution ??? valACYclovir 1 g tablet Follow up FU 3 MONTHS JASPREET MADSEN MD 11/06/2019 10:46 AM DENT SURGEON documented in this encounter Plan of Treatment Upcoming Encounters Date Type Department Care Team (Late st Contact Info) Description 11/14/2024 8:00 AM RESIDENT SURGEON Office Visit [facility] Multispecialty Care - [facility] 3 [facility], [address] [place] [phone] Montserrat Oliver NP 3 [facility] [address] [place] [address] 12/06/2024 9:30 AM RESIDENT SURGEON Appointment [facility] [address] [place] [address] [place] [address] [address] [place] [address] 03/02/2025 3:20 PM CDT Office Visit [facility] Family & Internal Medicine [facility] [address] [place] [address] [place] [address] [facility]. [address] [place] [address] documented as of this encounter Visit Diagnoses Diagnosis DURAN (generalized anxiety disorder)- Primary Generalized anxiety disorder Recurrent major depressive disorder, in partial remission (CMS/HCC) documented in this encounter Additional Health Concerns Assessment Noted Time PHQ-9 Depression Total Score: 4 05/01/20 19 3:05 PM CDT documented as of this encounter Care Teams Metal Molder Relationship Specialty Start Date End Date Jaspreet Madsen MD PCP - General INTERNAL MEDICINE 11/30/18 02/18/23 documented as of this encounter
--- OUTSIDE RECORDS SUMMARY | 2024-11-13 17:13 | XMS_ITS | Encounter Summary ---
Author Organization [facility] Address [address] [place] [address]. [place], [place] [address] [place] [address] Care Team Providers Care Learning Design Specialist Name Role Phone Jaspreet Pearl MD Primary Care Provider Felipe rangel Encounter Details Date Type Department Care Team (Late st Contact Info) Description 08/02/2019 Orders Only [facility] Family & Internal Medicine [address] [address] Meredith Wilde, DAISY Social History Tobacco Use Types Packs/Day Years [...] Master's degree (e.g., MA, MS, Howard, MEd, STRAIN TECHNICIAN, KEKE) 12/21/2018 Comments No Sex and [...] st Contact Info) Description 11/14/2024 8:00 AM SKATESMAN Office Visit [facility] Multispecialty Care - [facility] [address], [address] [place] [address] Montserrat Oliver NP 3 [facility] [address] [place] [address] 12/06/2024 9:30 AM SKATESMAN Appointment [facility] Open MRI [address] [facility] [place] [address] [place] [address] [facility] [address] [place] [phone] 03/02/2025 3:20 PM CDT Office Visit [facility] Family & Internal Medicine - [address] [phone] [place] [address] [place] [address] documented as of this encounter Visit Diagnoses Not on filedocumented in this encounter Additional Health Concerns Assessment Noted Time PHQ-9 Depression Total Score: 4 05/01/20 19 3:05 PM CDT documented as of this encounter Care Teams Learning Design Specialist Relationship Specialty Start Date End Date Jaspreet Pearl MD PCP - General INTERNAL MEDICINE 11/30/18 02/18/23 documented as of this encounter
--- OUTSIDE RECORDS SUMMARY | 2024-11-13 17:13 | XMS_ITS | Encounter Summary ---
Author Organization [facility] Address [address] [place] [address]. [place], [place] [phone] [place] [address] Care Team Providers Care Historiography Teacher Name Role Phone Jaspreet Pearl MD Primary Care Provider U Kelsey Dey NP Primary Care Provider [phone] Dayanara Plaza MD Primary Care Provider [phone] Perez Cervantes MD Unavailable Adriana Ma MD Unavailable [phone] Encounter Details Date Type Department Care Team (Late st Contact Info) Description 05/20/2020 [employer] Message Enc [facility] Family & Internal Medicine [address] [address] Jaspreet Pearl MD Other Social History Tobacco Use Types Packs/Day [...] Master's degree (e.g., MA, MS, Howard, MEd, CERTIFIED NURSE AIDE, KEKE) 12/21/2018 Comments No Sex and Gender [...] Contact Info) Description 11/14/2024 8:00 AM MANAGER MATERIAL Office Visit [facility] Multispecialty Care - [address], [address] [place] [phone] Montserrat Oliver NP 3 [facility] [address] [place] [address] 12/06/2024 9:30 AM MANAGER MATERIAL Appointment [facility] MRI [address] [place] [address] [place] [address] [facility] [address] [place] [address] 03/02/2025 3:20 PM CDT Office Visit [facility] Family & Internal Medicine - [address] [phone] [place] [address] [email or web address] [address] [place] [address] documented as of this encounter Visit Diagnoses Not on filedocumented in this encounter Additional Health Concerns Infection Onset Date Last Indicated Resolved Time COVID-19 Rule Out 03/14/2021 03/14/2021 03/15/2021 1:26 PM CDT COVID-19 Rule Out 04/03/2024 04/03/2024 04/03/2024 11:38 AM CDT Assessment Noted Time PHQ-9 Depression Total Score: 4 05/01/20 19 3:05 PM CDT documented as of this encounter Care Teams Historiography Teacher Relationship Specialty Start Date End Date Jaspreet Pearl MD PCP - General INTERNAL MEDICINE 11/30/18 02/18/23 Kelsey Kc, EDGING MACHINE SETTER [address] [address] [facility] [address] [place] [address] PCP - General Nurse Practitioner Family 02/19/23 02/28/23 [place] [address] [address] [place] [address] PCP - General FAMILY PRACTICE 03/01/23 Perez Cervantes MD [address] [place] [phone] RHEUMATOLOGY 09/02/23 Adriana Ma MD [address] [place] [address] Referring Physician ALLERGY 09/02/23 documented as of this encounter
--- OUTSIDE RECORDS SUMMARY | 2024-11-13 17:13 | XMS_ITS | Encounter Summary ---
Author Organization [facility] Address [address] [place] [address]. [place], [place] [address] [place] [address] Care Team Providers Care Pick Up Driver Name Role Phone Jaspreet Madesn MD Primary Care Provider U raynaailelijah Reason for Visit * Reason Comments Sinus Problem onset- Sun Cough sl mucous Headache no temp. Encounter Details Date Type Department Care Team (Late st Contact Info) Description 08/14/2020 4:00 PM CDT Telemedicine [facility] Family & Internal Medicine [address] [address] Jaspreet Madsen MD Sinus Problem (onset- Sun ); Cough (sl mucous); Headache (no temp. ) Social History Tobacco Use Types Packs/Day [...] Master's degree (e.g., MA, MS, Howard, MEd, RUBBER GOODS REPAIRER, KEKE) 12/21/2018 Comments No Sex and [...] Pressure - - Pulse - - Temperature 36.8 ??C (98.3 ??F) 08/14/2020 3:11 PM CD T Respiratory Rate - - Oxygen Saturation - - Inhaled Oxygen Concentration - - Weight 72.6 kg (160 lb) 08/14/2020 3:11 PM CDT Height 172.7 cm (5' 8 ) 08/14/2020 3:11 PM CDT Body Mass Index 24.33 08/14/2020 3:11 PM CDT documented in this encounter Progress Notes * Jaspreet Madsen MD - 08/14/2020 4:00 PM CDT Reason for Visit: Sinus Problem (onset- Sun ); Cough (sl mucous); and Headache (no temp. ) I introduced and identified myself, received verbal consent from the patient to proceed with this video visit and made the patient aware that the same confidentiality and information strategist practices apply. The patient joined the video visit from Home. I completed the virtual visit from Office. The following clinical staff helped with this visit MA: Bianca. Total Time Spent in Minutes: 10 Filed Vitals: 08/14/20 1511 Temp: 98.3 ??F (36.8 ??C) TempSrc: Oral Weight: 72.6 kg (160 lb) Height: 5' 8 (1.727 m) Body mass index is 24.33 kg/m??. History of Present Illness: HPI good afternoon this is an video conference with Mrs. 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 So this time she looks more like sinusitis which is not the first time she gets that with nasal congestion and headachefrontal she has some pain in the frontal area when she bends over. ROS: Review of Systems HENT: Positive for congestion and sinus pain. Respiratory: Positive for cough. Negative for sputum production, shortness of breath and wheezing. Medications: Current Outpatient Medications: ??? Ascorbic Acid (VITAMIN C) 100 MG tablet, Take 100 mg by mouth daily., Disp: , Rfl: ??? azelastine (AZELASTINE) 0.1 % nasal spray, 2 sprays by Nasal route., Disp: , Rfl: ??? BUSPIRONE 15 MG tablet, TAKE 1 TABLET BY MOUTH TWICE A DAY, Disp: 60 tablet, Rfl: 2 ??? cefdinir 300 MG Cap capsule, Take 1 capsule (300 mg total) by mouth 2 (two) times daily., Disp:20 capsule, Rfl: 0 ??? CITALOPRAM 10 MG tablet, TAKE 1 TABLET BY MOUTH DAILY, Disp: 30 tablet, Rfl: 2 ??? MUS-XDW-Runfjkf E (OMEGA-3 COMPLEX) 192-251-11 MG-MG-UNIT Cap, Take 1 capsule by mouth daily., Disp: , Rfl: ??? estradiol 0.1 MG/GM [...] by mouth daily., Disp: , Rfl: ??? OWCPGCPD-BIXGEODAU-LMFOLREUJQUXCG otic solution, , Disp: , Rfl: ??? valACYclovir 1 [...] bedtime., Disp: 30 tablet, Rfl: 0 ??? buPROPion 75 MG tablet, Take 2 tablets (150 mg total) by mouth 2 (two) times daily., Disp: 120 tablet, Rfl: 2 ??? dicyclomine 20 MG tablet, Take 1 tablet (20 mg total) by mouth every 6 (six) hours. (Patient taking differently: Take 20 mg by mouth every 6 (six) hours as needed. ), Disp: 120 tablet, Rfl: 0 ??? nabumetone 500 MG tablet, [...] Master's degree (e.g., MA, MS, Howard, MEd, RUBBER GOODS REPAIRER, KEKE) Occupational History ??? 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 Financial resource strain: Not on file ??? Food insecurity: Worry: Not on file Inability: Not on file ??? Transportation needs: Medical: Not on file Non-medical: Not on file Tobacco Use ??? Smoking status: Former Smoker Packs/day: 0.25 Years: 4.00 Pack years: 1.00 Types: Cigarettes Last attempt to quit: 1989 Years since quittin.7 ??? Smokeless tobacco: Never [...] file Gets together: Not on file Attends denominational service: Not on file Active member of [...] Exam Constitutional: This was a video conference so no physical examination was done and she is alert and pleasant with some nasal congestion she is in good spirit. Assessment Encounter Diagnose(s) ICD-10-CM ICD-9-CM SNOMED CT(R) 1. Acute upper respiratory infection J06.9 465.9 ACUTE UPPER RESPIRATORY INFECTION cefdinir 300 MG Cap capsule Plan at this time recommended to take an antibiotic the seems to be sinusitis encouraged her to geta get some muscle aches or Nasacort ebbx-mkq-bhxiesp and anticough medicine hfrx-uaa-pvjjtpt to also encouraged her to take a nice hot shower before bedtime and if she has difficulty breathing through her nose to get those nasal strips. Orders Placed This Encounter ??? DISCONTD: folic acid 1 MG tablet ??? cefdinir 300 MG Cap capsule Follow up FU 3 MONTHS JASPREET MADSEN MD 08/14/2020 4:15 PM documented in this encounter Plan of Treatment Upcoming Encounters Date Type Department Care Team (Late st Contact Info) Description 11/14/2024 8:00 AM NAIL TECHNICIAN TEACHER Office Visit [facility] Multispecialty Care - [facility] 3 [facility], [address] [place] [address] Montserrat Oliver NP 3 [facility] [address] [place] [address] 12/06/2024 9:30 AM NAIL TECHNICIAN TEACHER Appointment [facility] Open MRI [address] [facility] [address] [place] [address] [employer]. [address] [place] [address] 03/02/2025 3:20 PM CDT Office Visit [facility] Family & Internal Medicine - [address] [phone] [place] [address] [place] [address] documented as of this encounter Visit Diagnoses Diagnosis Acute upper respiratory infection- Primary Acute upper respiratory infections of unspecified site Polyarthritis Unspecified polyarthropathy or polyarthritis, site unspecified Recurrent major depressive disorder, in partial remission (CMS/HCC) documented in this encounter Additional Health Concerns Assessment Noted Time PHQ-9 Depression Total Score: 4 05/01/20 19 3:05 PM CDT documented as of this encounter Care Teams Pick Up Driver Relationship Specialty Start Date End Date Jaspreet Madsen MD PCP - General INTERNAL MEDICINE 11/30/18 02/18/23 documented as of this encounter
--- OUTSIDE RECORDS SUMMARY | 2024-11-13 17:13 | XMS_ITS | Encounter Summary ---
Author Organization [facility] Address [address] [place] [address]. [place], [place] [address] [place] [address] Care Team Providers Care Client Liaison Name Role Phone Jaspreet Madsen MD Primary Care Provider U juan carlos Reason for Visit * Reason Comments Fever 102-102.[address] temp this am was only 99.9 . Cough Body Aches Encounter Details Date Type Department Care Team (Late st Contact Info) Description 01/12/2020 8:20 AM SOURCING COORDINATOR Office Visit [facility] Medical Group Family & Internal Medicine [address] [phone] Jaspreet Madsen MD Fever (102-102.8 all day yest. temp this am was only 99.9 .); Cough; Body Aches Social History Tobacco Use Types Packs/Day Years [...] Master's degree (e.g., MA, MS, Howard, MEd, MINK RANCHER, KEKE) 12/21/2018 Comments No Sex and Gender [...] Sign Reading Time Taken Comments Blood Pressure 90/60 01/12/2020 8:16 AM SOURCING COORDINATOR Pulse 76 01/12/2020 8:16 AM SOURCING COORDINATOR Temperature 36.7 ??C (98.1 ??F) 01/12/2020 8:16 AM CS T Respiratory Rate 18 01/12/2020 8:16 AM SOURCING COORDINATOR Oxygen Saturation 97% 01/12/2020 8:16 AM SOURCING COORDINATOR Inhaled Oxygen Concentration - - Weight 76.7 kg (169 lb) 01/12/2020 8:16 AM SOURCING COORDINATOR Height 172.7 cm (5' 8 ) 01/12/2020 8:16 AM SOURCING COORDINATOR Body Mass Index 25.7 01/12/2020 8:16 AM SOURCING COORDINATOR documented in this encounter Progress Notes * Jaspreet Madsen MD - 01/12/2020 8:20 AM CST Reason for Visit: Fever (102-102.8 all day yest. temp this am was only 99.9 .); Cough; and Body Aches Filed Vitals: 01/12/20 0816 BP: 90/60 Pulse: 76 Resp: 18 Temp: 98.1 ??F (36.7 ??C) SpO2: 97% Weight: 76.7 kg (169 lb) Height: 5' 8 (1.727 m) Body mass index is 25.7 kg/m??. History of Present Illness: HPI the morning office visit and Mrs. Maxwell she is a pleasant lady 54-year-old with history of generalized anxiety disorder depression irritable bowel syndrome multiple issues of intolerances allergies arthritis etc. she been sick for the last 3 days with high temperatures off-and-on congestion general malaise. 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 ROS: Review of Systems Constitutional: Negative. HENT: Positive for congestion, sinus pain and sore throat. Eyes: Negative. Respiratory: Positive for cough. Cardiovascular: Negative. Gastrointestinal: Negative. Musculoskeletal: Negative. Skin: Negative. Neurological: Negative. Psychiatric/Behavioral: The patient is nervous/anxious. Medications: Current [...] twice a week., Disp: , Rfl: ??? TRT-KGV-Lnlgqxz E (OMEGA-3 COMPLEX) 192-251-11 MG-MG-UNIT Cap, Take [...] (two) times daily., Disp: , Rfl: ??? [id number]-[id number] otic solution, , Disp: , Rfl: ??? [...] Master's degree (e.g., MA, MS, Howard, MEd, MINK RANCHER, KEKE) Occupational History ??? 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 HENT: Mouth/Throat: Oropharyngeal exudate present. She is very congested with nasal voice no adenopathies in the neck tympanic membranes slightly congested Eyes: Pupils are equal, round, and [...] appears anxious. Cognition and memory are normal. Nursing note and vitals reviewed. Assessment Encounter Diagnose(s) ICD-10-CM ICD-9-CM SNOMED CT(R) 1. Acute upper respiratory infection J06.9 465.9 ACUTE UPPER RESPIRATORY INFECTION 2. Recurrent major depressive disorder, in partial remission ([facility]) F33.41 296.35 RECURRENT MAJOR DEPRESSION IN PARTIAL REMISSION Plan at this time I would recommend some treatment for sinusitis plenty of fluids and a decongestant. Also encouraged her to stay home and rest. No orders of the defined types were placed in this encounter. Follow up FU PRN JASPREET MADSEN MD 01/18/2020 3:25 PM CING COORDINATOR documented in this encounter Plan of Treatment Upcoming Encounters Date Type Department Care Team (Late st Contact Info) Description 11/14/2024 8:00 AM SOURCING COORDINATOR Office Visit [facility] Multispecialty Care - [address], [address] [place] [phone] Montserrat Oliver NP 3 [facility] [address] [place] [address] 12/06/2024 9:30 AM SOURCING COORDINATOR Appointment [facility] Open MRI [address] [place] [address] [place] [id number] [place] [address] [place] [address] 03/02/2025 3:20 PM CDT Office Visit [facility] Family & Internal Medicine - [place] [address] [place] [phone] [place] [address] [address] [place] [address] documented as of this encounter Visit Diagnoses Diagnosis Acute upper respiratory infection- Primary Acute upper respiratory infections of unspecified site Recurrent major depressive disorder, in partial remission (CMS/HCC) documented in this encounter Additional Health Concerns Assessment Noted Time PHQ-9 Depression Total Score: 4 05/01/20 19 3:05 PM CDT documented as of this encounter Care Teams Client Liaison Relationship Specialty Start Date End Date Jaspreet Madsen MD PCP - General INTERNAL MEDICINE 11/30/18 02/18/23 documented as of this encounter
--- OUTSIDE RECORDS SUMMARY | 2024-11-13 17:13 | XMS_ITS | Encounter Summary ---
Author Organization [facility] Address [address] [place] [address]. [place], [place] [address] [place] [address] Care Team Providers Care Teacher Adult Education Name Role Phone Jaspreet Pearl MD Primary Care Provider Felipe rangel Encounter Details Date Type Department Care Team (Latest Contact Info) Description 01/10/2020 Travel Social History Tobacco Use Types Packs/Day [...] Master's degree (e.g., MA, MS, Howard, MEd, STRUCTURAL ENGINEERING DRAFTING OFFICER, KEKE) 12/21/2018 Comments No Sex and [...] st Contact Info) Description 11/14/2024 8:00 AM ENTRY LEVEL RECEPTIONIST Office Visit [facility] Multispecialty Care - [facility] 3 [facility], [address] [place] [phone] Montserrat Oliver, BACK UP WORKER [address] [place] [address] 12/06/2024 9:30 AM ENTRY LEVEL RECEPTIONIST [facility]ment [facility] [address] [facility] [place] [address] [place] [address] [facility] [address] [place] [address] 03/02/2025 3:20 PM CDT Office Visit [facility] Medical Group Family & Internal Medicine - [address] [phone] [place] [address] [facility] [address] [place] [address] documented as of this encounter Visit Diagnoses Not on filedocumented in this encounter Additional Health Concerns Assessment Noted Time PHQ-9 Depression Total Score: 4 05/01/20 19 3:05 PM CDT documented as of this encounter Care Teams Teacher Adult Education Relationship Specialty Start Date End Date Jaspreet Pearl MD PCP - General INTERNAL MEDICINE 11/30/18 02/18/23 documented as of this encounter
--- OUTSIDE RECORDS SUMMARY | 2024-11-13 17:13 | XMS_ITS | Encounter Summary ---
Author Organization [facility] Address [address] [place] [address]. [place], [place] [phone] [place] [address] Care Team Providers Care Box Covering Machine Operator Name Role Phone Jaspreet Pearl MD Primary Care Provider U navailable Reason for Referral * Consultation (Routine) - Closed Specialty Diagnoses / Procedures Referred By Contac t Referred To Contact GASTROENTEROLOGY Diagnoses Encounter for screening colonoscopy Jaspreet Pearl MD Kim, Peter S, MD [address] [place], [place] [address] Phone: tel: fax: Referral ID Status Reason Start Date Expiration Date Visits Re quested Visits Authorized [id number] Closed 11/13/2020 12/14/2021 99 99 R TECHNOLOGIST Encounter Details Date Type Department Care Team (Late st Contact Info) Description 11/13/2020 Orders Only [facility] Medical Group Family & Internal Medicine [address] [phone] Jaspreet Pearl MD Social History [...] Master's degree (e.g., MA, MS, Howard, MEd, WEEKDAY BABYSITTER, KEKE) 12/21/2018 Comments No Sex and Gender Information Value Date Recorded Sex Assigned at Not on file Legal Sex Female 8:16 PM CDT Gender Identity Not on file Sexual Orientation Not on file 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 [address] [place] [address] 12/06/2024 9:30 AM FIBER TECHNOLOGIST Appointment [facility] Open MRI [address] [place] [address] [place] [address] [facility] [address] [place] [phone] 03/02/2025 3:20 PM CDT Office Visit [facility] Family & Internal Medicine - [address] [phone] [place] [address] [facility] [address]. [address] [place] [address] Scheduled Referrals Name Type Priority Associated Diagnoses Orde r Schedule Ambulatory referral to Gastroenterology (OTHER) Referral Routine Encounter for screening colonoscopy Ordered: 11/13/2020 documented as of this encounter Visit Diagnoses Diagnosis Encounter for screening colonoscopy- Primary Special screening for malignant neoplasms, colon documented in this encounter Additional Health Concerns Assessment Noted Time PHQ-9 Depression Total Score: 4 05/01/20 19 3:05 PM CDT documented as of this encounter Care Teams Box Covering Machine Operator Relationship Specialty Start Date End Date Jaspreet Pearl MD PCP - General INTERNAL MEDICINE 11/30/18 02/18/23 documented as of this encounter
--- OUTSIDE RECORDS SUMMARY | 2024-11-13 17:13 | XMS_ITS | Encounter Summary ---
Author Organization [facility] Address [address] [place] [address]. [place], [place] [address] [place] [address] Care Team Providers Care Commercial Escrow Assistant Name Role Phone Jaspreet Pearl MD Primary Care Provider U Kelsey Dey NP Primary Care Provider [phone] Dayanara Plaza MD Primary Care Provider [phone] Perez Cervantes MD Unavailable Adriana Ma MD Unavailable [phone] Encounter Details Date Type Department Care Team (Late st Contact Info) Description 11/25/2020 MyCHubHumant Message Enc [facility] Medical Group Family & Internal Medicine [address] [phone] Jaspreet Pearl MD RE: Referral [...] Master's degree (e.g., MA, MS, Howard, MEd, METROLOGIST, KEKE) 12/21/2018 Comments No Sex and Gender [...] COVID-19? No / Unsure 11/19/2020 5:38 PM PEER EDUCATOR documented as of this encounter Plan of Treatment Upcoming Encounters Date Type Department Care Team (Late st Contact Info) Description 11/14/2024 8:00 AM PEER EDUCATOR Office Visit [facility] Multispecialty Care - [address], [address] [place] [phone] Montserrat Oliver NP 3 [facility] [address] [place] [address] 12/06/2024 9:30 AM PEER EDUCATOR Appointment [facility] Open MRI [address] [place] [address] [place] [address] [facility] [place] [address] 03/02/2025 3:20 PM CDT Office Visit [facility] Medical Group Family & Internal Medicine - [address] [phone] [place] [address] [facility] [place] [address] documented as of this encounter Visit Diagnoses Not on filedocumented in this encounter Additional Health Concerns Infection Onset Date Last Indicated Resolved Time COVID-19 Rule Out 03/14/2021 03/14/2021 03/15/2021 1:26 PM CDT COVID-19 Rule Out 04/03/2024 04/03/2024 04/03/2024 11:38 AM CDT Assessment Noted Time PHQ-9 Depression Total Score: 4 05/01/20 19 3:05 PM CDT documented as of this encounter Care Teams Commercial Escrow Assistant Relationship Specialty Start Date End Date Jaspreet Pearl MD PCP - General INTERNAL MEDICINE 11/30/18 02/18/23 Kelsey Kc, SCIENTIFIC PHOTOGRAPHER [address] [address] [place] [address] PCP - General Nurse Practitioner Family 02/19/23 02/28/23 [place] [address] [employer] [address] [place] [address] PCP - General FAMILY PRACTICE 03/01/23 Perez Cervantes MD [address] [phone] RHEUMATOLOGY 09/02/23 Adriana Ma MD [address] [place] [address] Referring Physician ALLERGY 09/02/23 documented as of this encounter
--- OUTSIDE RECORDS SUMMARY | 2024-11-13 17:13 | XMS_ITS | Encounter Summary ---
Author Organization [facility] Address [address] [place] [address]. [place], [place] [address] [place] [address] Care Team Providers Care Medical Research Assistant Name Role Phone Jaspreet Pearl MD Primary Care Provider U Kelsey Dey NP Primary Care Provider [phone] Dayanara Plaza MD Primary Care Provider [phone] Perez Cervantes MD Unavailable Adriana Ma MD Unavailable [phone] Encounter Details Date Type Department Care Team (Late st Contact Info) Description 01/29/2020 Neomobilet Message Enc [facility] Medical Group Family & Internal Medicine [address] [phone] Jaspreet Pearl MD RE: Follow Up/Update Social History Tobacco Use Types Packs/Day Years [...] Master's degree (e.g., MA, MS, Howard, MEd, SUPERVISOR RESEARCH SHOP, KEKE) 12/21/2018 Comments No Sex and Gender [...] st Contact Info) Description 11/14/2024 8:00 AM KITCHEN CLEANER Office Visit [facility] Multispecialty Care - [facility] 3 [facility], [address] [place] [phone] Montserrat Oliver NP 3 [facility] [address] [place] [address] 12/06/2024 9:30 AM KITCHEN CLEANER Appointment [facility] Open MRI [address] [place] [address] [place] [address] [facility] [address] [place] [phone] 03/02/2025 3:20 PM CDT Office Visit [facility] Family & Internal Medicine - [address] [phone] [place] [address] [facility] [place] [address] documented as of this encounter Visit Diagnoses Not on filedocumented in this encounter Additional Health Concerns Infection Onset Date Last Indicated Resolved Time COVID-19 Rule Out 03/14/2021 03/14/2021 03/15/2021 1:26 PM CDT COVID-19 Rule Out 04/03/2024 04/03/2024 04/03/2024 11:38 AM CDT Assessment Noted Time PHQ-9 Depression Total Score: 4 05/01/20 19 3:05 PM CDT documented as of this encounter Care Teams Medical Research Assistant Relationship Specialty Start Date End Date Jaspreet Pearl MD PCP - General INTERNAL MEDICINE 11/30/18 02/18/23 [place] [address] [address] [place] [address] PCP - General Nurse Practitioner Family 02/19/23 02/28/23 [place] [address] [address] [place] [address] PCP - General FAMILY PRACTICE 03/01/23 Perez Cervantes MD [address] [place] [phone] RHEUMATOLOGY 09/02/23 Ardiana Ma MD [address] [place], [place] [address] Referring Physician ALLERGY 09/02/23 documented as of this encounter
--- OUTSIDE RECORDS SUMMARY | 2024-11-13 17:13 | XMS_ITS | Encounter Summary ---
Author Organization [facility] Address [address] [place] [address]. [place] [address] [place] [address] Care Team Providers Care State Manager Name Role Phone Jaspreet Madsen MD Primary Care Provider U juan carlos Reason for Visit * Reason Comments Sore Throat Back Pain Encounter Details Date Type Department Care Team (Late st Contact Info) Description 12/15/2019 10:20 AM MANUFACTURING TEST ENGINEER Office Visit [facility] [address] [place] [address] Lara Judge, ADJUNCT PHYSICS INSTRUCTOR [address] [facility] [address] [place] [address] Sore Throat; Back Pain Social History Tobacco Use Types Packs/Day Years [...] Master's degree (e.g., MA, MS, Howard, MEd, GAME DESIGNER/CREATIVE DIRECTOR, KEKE) 12/21/2018 Comments No Sex and [...] Sign Reading Time Taken Comments Blood Pressure 120/60 12/15/2019 10:30 AM MANUFACTURING TEST ENGINEER Pulse 76 12/15/2019 10:30 AM MANUFACTURING TEST ENGINEER Temperature 37 ??C (98.6 ??F) 12/15/2019 10:30 AM MANUFACTURING TEST ENGINEER Respiratory Rate 18 12/15/2019 10:30 AM MANUFACTURING TEST ENGINEER Oxygen Saturation 100% 12/15/2019 10:30 AM MANUFACTURING TEST ENGINEER Inhaled Oxygen Concentration - - Weight 77 kg (169 lb 12.8 oz) 12/15/2019 10:30 A M MANUFACTURING TEST ENGINEER Height 175.3 cm (5' 9 ) 12/15/2019 10:30 AM MANUFACTURING TEST ENGINEER Body Mass Index 25.08 12/15/2019 10:30 AM MANUFACTURING TEST ENGINEER documented in this encounter Patient Instructions * Patient Instructions* Lara Judge, ADJUNCT PHYSICS INSTRUCTOR - 12/15/2019 10:20 AM MANUFACTURING TEST ENGINEER Images from the original note were not included. nPatient Education Patient Education Back Muscle Strain Discharge Instructions About this topic A muscle strain happens when the muscle is stretched too much. Sometimes, this is also called a pulled muscle. In some cases, your muscle may bleed and you may see bruising on the skin. When this injury happens in the lower back area, it is a lumbar strain. When this injury happens in your middle or upper back, it is a thoracic strain. This is a very common injury. What care is needed at home? ?? Ask your doctor what you need to do when you go home. Make sure you ask questions if you do not understand what the doctor says. This way you will know what you need to do. ?? Rest. Allow your injury to heal before you do slow movements. ?? Place an ice pack or a bag of frozen peas wrapped in a towel over the painful part. Never put ice right on the skin. Do not leave the ice on more than 10 to 15 minutes at a time. ?? Massage ?? Sit or sleep with your legs raised on a pillow. ?? Physical therapy to learn exercises for your back. ?? Brace to support the back muscles ?? Heat may be used later but not right away. Heat can make swelling worse. If your doctor tells you to use heat, put a heating pad on the painful part for no more than 20 minutes at a time. Never goto sleep with a heating pad on as this can cause nielson. What follow-up care is needed? Your doctor may ask you to make visits to the office to check on your progress. Be sure to keep these visits. Your doctor may send you to physical therapy or a chiropractor to help you heal faster. What drugs may be needed? The doctor may order drugs to: ?? Help with pain and swelling ?? Relax muscles Will physical activity be limited? You may need to rest for a while. You should not do physical activity that makes your health problem worse. Talk to your doctor if you run, work out, or play sports. You may not be able to do those things until your health problem gets better. What can be done to prevent this health problem? ?? Take breaks often when sitting or standing for a long time. Walk around when you can. ?? Use good posture when you sit or stand. Use proper chairs, beds, and pillows. ?? When standing, try putting one leg up on a small step. ?? Warm up slowly and stretch before you work out. Use good ways to train, such as slowly adding tohow far you run. Do not work out if you are overly tired. Take extra care if working out in cold weather. ?? Keep a healthy weight so there is not extra stress on your joints. Eat a healthy diet to keep your muscles healthy. ?? Stay active and work out to keep your muscles strong and flexible. Do exercises, like crunches, to strengthen your abdominal muscles. This will help keep your back stable. ?? Use good form with your body when lifting heavy objects. ? Bend your knees. ? Keep your back straight. ? Do not twist at your waist. Turn with your feet instead. ? Keep things close to your body. ?? Wear shoes with good support. ?? Quit smoking. Smoking can harden the arteries which can lead to back pain and disc problems. ?? Avoid stressful situations if you can. Stress can cause muscle tension. When do I need to call the doctor? ?? Pain or swelling gets worse ?? Pain is constant ?? Not able to stand or walk ?? Severe abdominal pain ?? Start having pain or numbness going down one or both legs ?? You have trouble with your bowels or bladder ?? You are not feeling better in 2 to 3 days or you are feeling worse Teach Back: Helping You Understand The Teach Back Method helps you understand the information we are giving you. After you talk with the staff, tell them in your own words what you learned. This helps to make sure the staff has described each thing clearly. It also helps to explain things that may have been confusing. Before going home, make sure you can do these: ?? I can tell you about my condition. ?? I can tell you what may help ease my pain. ?? I can tell you ways to help prevent this from happening again. ?? I can tell you what I will do if I have more pain or swelling. Where can I learn more? National [place] of Arthritis and Musculoskeletal and Skin Diseases https://www.niams.nih.gov/health-topics/back-pain National [place] of Neurological Disorders and Stroke https://www.ninds.nih.gov/Disorders/Pqgwtqy-Hfirfpbor-Utxlyystg/Fact-Sheets/Low- Xlzj-Uohy-Ftnf-Sheet Last Reviewed Date 2019-06-15 Consumer Information Use and Disclaimer This information is not specific medical advice and does not replace information you receive from your health care provider. This is only a brief summary of general information. It does NOT include all information about conditions, illnesses, injuries, tests, procedures, treatments, therapies, discharge instructions or life-style choices that may apply to you. You must talk with your health care provider for complete information about your health and treatment options. This information should not be used to decide whether or not to accept your health care provider???s advice, instructions or recommendations. Only your health care provider has the knowledge and training to provide advice that is right for you. Copyright Copyright ?? 2019 [employer] and its affiliates and/or licensors. All rights reserved. FACTURING TEST ENGINEER documented in this encounter Progress Notes * Lara Judge NP - 12/15/2019 10:20 AM CST Images from the original note were not included. Reason for Visit: Sore Throat and Back Pain History of Present Illness: Hans Pascual is a 54-year-old female presenting today to [facility] Noemi Leal complaining of back pain that started yesterday. 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 Pt reports she has intermittent back issues since her surgery many years ago. Patient denies numbness or tingling, radiation, change in bowel or bladder habits. Pt also notes she has had an intermittent sore throat and would like swabbed for strep as she has been working at the school. ROS: Review of Systems HENT: Positive for sore throat. Musculoskeletal: Positive for back pain. All other systems reviewed and are negative. Medications: Current Outpatient Medications: ??? Albuterol Sulfate [...] twice a week., Disp: , Rfl: ??? cyclobenzaprine 5 MG tablet, Take 1 tablet (5 mg total) by mouth nightly as needed for Muscle Spasms., Disp: 7 tablet, Rfl: 0 ??? HDN-GJU-Hciojoi E (OMEGA-3 COMPLEX) 192-251-11 MG-MG-UNIT Cap, Take [...] (two) times daily., Disp: , Rfl: ??? CKLIAVAB-DRQBZUPCC-PACPUMTHJLILHT otic solution, , Disp: , Rfl: ??? [...] Master's degree (e.g., MA, MS, Howard, MEd, GAME DESIGNER/CREATIVE DIRECTOR, KEKE) Occupational History ??? 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 She appears well- developed and well-nourished. No distress. Eyes: EOM are normal. Pupils are equal, round, and reactive to light. Neck: Normal range of motion. Cardiovascular: Normal rate, regular rhythm, normal heart sounds and intact distal pulses. Pulmonary/Chest: Effort normal and breath sounds normal. Musculoskeletal: Lumbar back: She exhibits decreased range of motion, tenderness (over illiac crest), pain and spasm. She exhibits no swelling and no deformity. Back: Neurological: She is alert and oriented to person, place, and time. Skin: Skin is warm and dry. Capillary refill takes less than 2 seconds. Vitals reviewed. Filed Vitals: 12/15/19 1030 BP: 120/60 Pulse: 76 Resp: 18 Temp: 98.6 ??F (37 ??C) TempSrc: Oral SpO2: 100% Weight: 77 kg (169 lb 12.8 oz) Height: 5' 9 (1.753 m) Results for orders placed or performed in visit on 12/15/19 RAPID STREP A Result Value Ref Range RAPID STREP TEST neg NEGATIVE Internal Control: VALID VALID Diagnoses/Impression: 1. Muscle spasm cyclobenzaprine 5 MG tablet 2. Sore throat RAPID STREP A Recommendations and Plan: Pt is to see PCP to get further work up/imagining and physical therapy should the pain persist. Prescriptions written as below; reviewed risks benefits and administration of medication. May take Tylenol 500-1000mg as needed for pain. May alternated ice and heat to affected area. Discussed with family that current strep testing is NEGATIVE; will send for culture and treat when warrented. Discussed with pt /family the etiology, natural course, possible complications, and treatment options for pharyngitis. Recommended OTC therapy with pain/fever control products, Recommendedfor pt/ family to call/return to office with follow up if pt persits with greater than 5 days of symptoms, worsens, or as otherwise directed. Discussed with pt / family that is pt contagious until fever free for at least 24 hours. Return to activities when pt feels well . Observe pt contacts for signs/symptoms of illness. LARA JUDGE NP Referring Provider: No ref. provider found PCP: JASPREET MADSEN MD Cosigned by Haresh Hauser MD at 12/17/2019 1:12 PM MANUFACTURING TEST ENGINEER FACTURING TEST ENGINEER FACTURING TEST ENGINEER documented in this encounter Plan of Treatment Upcoming Encounters Date Type Department Care Team (Late st Contact Info) Description 11/14/2024 8:00 AM MANUFACTURING TEST ENGINEER Office Visit [facility] Medical Group Multispecialty [place] [address] [facility], [address] [place] [address] Montserrat Oliver NP [address] [facility] [address] [place] [address] 12/06/2024 9:30 AM MANUFACTURING TEST ENGINEER Appointment [facility] Open MRI [address] [facility] [address] [place] [address] [facility] [address] [place] [address] 03/02/2025 3:20 PM CDT Office Visit [facility] Medical Group Family & Internal Medicine - [address] [address] [place] [address] [place] [address] documented as of this encounter Procedures Procedure Name Priority Date/Time Associated Diagnosis Comments RAPID STREP A Routine 12/15/2019 Sore throat documented in this encounter Results * RAPID STREP A (12/15/2019) RAPID STREP TEST neg NEGATIVE [facility] Internal Control: VALID VALID [facility] STRUCTURE OF ANTERIOR PORTION OF NECK / Unknown 12/15/2019 us Lara Judge NP MICROBIOLOGY - GENERAL ORDERA BLES Final Result [facility] [address] [place] [address], [place] [phone] documented in this encounter Visit Diagnoses Diagnosis Muscle spasm- Primary Spasm of muscle Sore throat Acute pharyngitis documented in this encounter Additional Health Concerns Assessment Noted Time PHQ-9 Depression Total Score: 4 05/01/20 19 3:05 PM CDT documented as of this encounter Care Teams State Manager Relationship Specialty Start Date End Date Jaspreet Madsen MD PCP - General INTERNAL MEDICINE 11/30/18 02/18/23 documented as of this encounter
--- OUTSIDE RECORDS SUMMARY | 2024-11-13 17:14 | XMS_ITS | Encounter Summary ---
Author Organization [facility] Address [address] [place] [address]. [place] [address] [place] [address] Care Team Providers Care Engineering Librarian Name Role Phone Unavailable Primary Care Provider Unavailabl e Encounter Details Date Type Department Care Team (Latest Contact Info) Description 03/23/2018 Abstract [facility] Medical Group Social History Tobacco Use Types Packs/Day Years Used Date Smoking Tobacco: Never Assessed Comments Unknown Sex and Gender Information Value Date Recorded Sex Assigned at Not on file Legal Sex Female 8:16 PM CDT Gender Identity Not on file Sexual Orientation Not on file documented as of this encounter Plan of Treatment Upcoming Encounters Date Type Department Care Team (Late st Contact Info) Description 11/14/2024 8:00 AM NIGHT NURSE Office Visit [facility] Medical [facility] Multispecialty Care - [facility] [address] [facility], [address] [place] [address] Montserrat Oliver, STAPLE CUTTER 3 [facility] [address] [place] [address] 12/06/2024 9:30 AM NIGHT NURSE Appointment [facility] Open MRI [address] [place] [address] [place] [address] [address] [place] [address] 03/02/2025 3:20 PM CDT Office Visit [facility] Medical Group Family & Internal Medicine - [place] [address] [place] [address] [place] [address] [address] [place] [address] documented as of this encounter Visit Diagnoses Not on filedocumented in this encounter
--- OUTSIDE RECORDS SUMMARY | 2024-11-13 17:14 | XMS_ITS | Encounter Summary ---
Author Organization [facility] Address [address] [place] [address]. [place], [place] [address] [place] [address] Care Team Providers Care Charge Auditor Name Role Phone Jaspreet Pearl MD Primary Care Provider U Kelsey Dey NP Primary Care Provider [phone] Dayanara Plaza MD Primary Care Provider [phone] Perez Cervantes MD Unavailable Adriana Ma MD Unavailable [phone] Encounter Details Date Type Department Care Team (Late st Contact Info) Description 02/26/2019 [employer] Message Enc [facility] Medical Group Family & Internal Medicine [address] [address] Jaspreet Pearl MD RE: Medication Questions Social History Tobacco Use Types [...] Master's degree (e.g., MA, MS, Howard, MEd, PILOT SUBMERSIBLE, KEKE) 12/21/2018 Comments No Sex and Gender [...] st Contact Info) Description 11/14/2024 8:00 AM COMPUTER GRAPHIC DESIGNER Office Visit [facility] Multispecialty Care - [facility] 3 [facility], [address] [place] [address] Montserrat Oliver NP 3 [facility] [address] [place] [address] 12/06/2024 9:30 AM COMPUTER GRAPHIC DESIGNER Appointment [facility] MRI [address] [place] [address] [place] [address] [place] [address] 03/02/2025 3:20 PM CDT Office Visit [facility] Family & Internal Medicine - [address] [phone] [place] [address] [place] [address] documented as of this encounter Visit Diagnoses Not on filedocumented in this encounter Additional Health Concerns Infection Onset Date Last Indicated Resolved Time COVID-19 Rule Out 03/14/2021 03/14/2021 03/15/2021 1:26 PM CDT COVID-19 Rule Out 04/03/2024 04/03/2024 04/03/2024 11:38 AM CDT documented as of this encounter Care Teams Charge Auditor Relationship Specialty Start Date End Date Jaspreet Pearl MD PCP - General INTERNAL MEDICINE 11/30/18 02/18/23 [place] [address] [address] [place] [address] PCP - General Nurse Practitioner Family 02/19/23 02/28/23 [place] [address] [address] [place] [address] PCP - General FAMILY PRACTICE 03/01/23 Perez Cervantes MD [address] [place] [phone] RHEUMATOLOGY 09/02/23 Adriana Ma MD [address] [place] [id number] Referring Physician ALLERGY 09/02/23 documented as of this encounter
--- OUTSIDE RECORDS SUMMARY | 2024-11-13 17:14 | XMS_ITS | Encounter Summary ---
Author Organization [facility] Address [address] [place] [address]. [place] [address] [place] [address] Care Team Providers Care Food Service Tray Attendant Name Role Phone Jaspreet Pearl MD Primary Care Provider U raynaailable Reason for Visit * Reason Comments Generic Orders (SCAN) DRUG THERAPY FLETCHER E AUTHORIZATION Encounter Details Date Type Department Care Team (Late st Contact Info) Description 08/25/2018 Scan HEALTH INFO [facility] Scanned, Documents Generic Orders (SCAN) (DRUG THERAPY CHANGE AUTHORIZATION) Social History Tobacco Use Types Packs/Day Years Used Date Smoking Tobacco: Never Assessed AUDIT-C Answer Date Recorded Frequency of Alcohol Consumption Never 11/30/2018 Average Number of Drinks Not on file 019 Frequency of Binge Drinking Not on file 11/15 Comments Unknown Sex and Gender Information Value Date Recorded Sex Assigned at Not on file Legal Sex Female 8:16 PM CDT Gender Identity Not on file Sexual Orientation Not on file documented as of this encounter Plan of Treatment Upcoming Encounters Date Type Department Care Team (Late Contact Info) Description 11/14/2024 8:00 AM SHIPPING TEAM LEADER Office Visit [facility] Medical Group Multispecialty Care - [facility] 3 [facility], [address] [place] [address] Montserrat Oliver NP 3 [facility] [address] [place] [address] 12/06/2024 9:30 AM SHIPPING TEAM LEADER Appointment [facility] Open MRI [address] [facility] [place] [address] [place] [address] [address] [place] [address] 03/02/2025 3:20 PM CDT Office Visit [facility] Medical Group Family & Internal Medicine - [address] [address] [place] [address] [facility] [address] [address] [place] [address] documented as of this encounter Visit Diagnoses Not on filedocumented in this encounter Care Teams Food Service Tray Attendant Relationship Specialty Start Date End Date Jaspreet Pearl MD PCP - General INTERNAL MEDICINE 11/30/18 02/18/23 documented as of this encounter
--- OUTSIDE RECORDS SUMMARY | 2024-11-13 17:14 | XMS_ITS | Encounter Summary ---
Author Organization [facility] Address [address] [place] [address]. [place] [address] [place] [address] Care Team Providers Care Animal Herder Name Role Phone Jaspreet Pearl MD Primary Care Provider Felipe archerelijah Encounter Details Date Type Department Care Team (Late st Contact Info) Description 06/23/2018 Abstract [facility] Diagnostic Imaging [address] [place] [address] Stalin Calderón MD [address] [address] Social History Tobacco Use Types Packs/Day Years [...] st Contact Info) Description 11/14/2024 8:00 AM REGIONAL BUSINESS DEVELOPMENT MANAGER Office Visit [facility] Medical Group Multispecialty Care - [facility] 3 Health system, [address] [place] [address] Montserrat Oliver NP 3 [facility] [address] [place] [address] 12/06/2024 9:30 AM REGIONAL BUSINESS DEVELOPMENT MANAGER [facility] [address] [place] [address] [place] [address] [facility] [address] [place], [place] [id number] 03/02/2025 3:20 PM CDT Office Visit [facility] Medical Group Family & Internal Medicine - [place] [address] [place] [address] [place] [address] [facility] [address] [place] [address] documented as of this encounter Visit Diagnoses Diagnosis Encounter for screening mammogram for malignant neoplasm of breast Other screening mammogram documented in this encounter Care Teams Animal Herder Relationship Specialty Start Date End Date Jaspreet Pearl MD PCP - General INTERNAL MEDICINE 11/30/18 02/18/23 documented as of this encounter
--- OUTSIDE RECORDS SUMMARY | 2024-11-13 17:14 | XMS_ITS | Encounter Summary ---
Author Organization [facility] Address [address] [place] [address]. [place] [address] [place] [address] Care Team Providers Care Manager Park Name Role Phone Jaspreet Pearl MD Primary Care Provider U juan carlos Reason for Visit * Reason Comments Sore Throat PT AMB TO ER WITH C/ O SORE THROAT FOR 3 DAYS. PT REPORTS SEEING WHITE PATCHES ON THROAT. DENIES FEVERS. NO SOB. NO DISTRESS. Encounter Details Date Type Department Care Team (Late st Contact Info) Description 06/18/2019 11:24 AM CDT - 06/18/2019 12:33 PM CDT Emergency [facility] Emergency Room [id number] [place] [address] Chiquita Colbert, [place] [address] [place] [address] Sore Throat (PT AMB TO ER WITH C/O SORE THROAT FOR 3 DAYS. PT REPORTS SEEING WHITE PATCHES ON THROAT. DENIES FEVERS. NO SOB. NO DISTRESS. ) Discharge Disposition: Home or Self Care (Routine [...] Master's degree (e.g., MA, MS, Howard, MEd, YOUTH SERVICES SPECIALIST, KEKE) 12/21/2018 Comments No Sex and [...] Sign Reading Time Taken Comments Blood Pressure 110/68 06/18/2019 11:21 AM CDT Pulse 61 06/18/2019 11:21 AM CDT Temperature 37.3 ??C (99.1 ??F) 06/18/2019 11:21 AM C DT Respiratory Rate 18 06/18/2019 11:21 AM CDT Oxygen Saturation 100% 06/18/2019 11:21 AM CDT Inhaled Oxygen Concentration - - Weight 72.6 kg (160 lb) 06/18/2019 11:21 AM CDT Height 175.3 cm (5' 9 ) 06/18/2019 11:21 AM CDT Body Mass Index 23.63 06/18/2019 11:21 AM CDT documented in this encounter Discharge Instructions * Discharge Instructions* TANYA Tran - 06/18/2019 12:05 PM CDT 1) Please follow-up with Dr. Pearl this coming week for re-evaluation 2) We will call you if the strep comes back positive for antibiotic treatment 3) Return to Emergency Department for any new or worsening symptoms (includes but not limited to: fever greater than 100.4, worsening of pain, severe voice change, excessive drooling, inabllity to swallow or inability to open jaw). To relieve some throat pain: warm saline gargles, which may reduce associated edema; lozenges; popsicles; and cold and slushy beverages. * Attachments The following attachments cannot be sent through Care Everywhere. * Sore Throat Discharge Instructions, Adult (Tunisian) * Viral Pharyngitis (Tunisian) documented in this encounter Medications at Time of Discharge etanercept 50 MG/ML injection Inject 1 mL (50 mg total) into the skin weekly. 05/30/2014 methotrexate 2.5 MG tablet Take by mouth once a week. Take 6 tablets every 7 days. 06/06/2018 Albuterol Sulfate (PROAIR RESPICLICK) 108 (90 Base) MCG/ACT AEROSOL POWDER, BREATH ACTIVATED Inhale 2 puffs into the lungs 4 (four) times daily as needed. 05/19/2018 1 ALPRAZolam 0.25 MG tabletIndications: DURAN (generalized anxiety disorder) Take 1 tablet (0.25 mg total) by mouth nightly as needed for Sleep. 30 tablet 05/01/2019 9 BUPROPION 75 MG tabletIndications: Anxiety TAKE 2 TABLETS BY MOUTH TWICE A DAY 120 tablet 2 04/11/2019 9 busPIRone 15 MG tabletIndications: DURAN (generalized anxiety disorder) Take 1 tablet (15 mg total) by mouth 2 (two) times daily. 60 tablet 2 05/01/2019 9 citalopram 10 MG tabletIndications: DURAN (generalized anxiety disorder) Take 1 tablet (10 mg total) by mouth daily. 30 tablet 2 05/01/2019 9 conjugated estrogens 0.625 MG/GM vaginal cream Place 0.5 g vaginally twice a week. 0 LOA-ZWC-Bydbeol E 192-251-11 MG-MG-UNIT Cap Take 1 capsule by mouth daily. 3 dicyclomine 20 MG tabletIndications: Irritable bowel syndrome with both constipation and diarrhea Take 1 tablet (20 mg total) by mouth every 6 (six) hours. 120 tablet 12/21/2018 2 folic acid 1 MG tablet Take 1 tablet (1 mg total) by mouth daily. 06/01/2014 3 MONTELUKAST 10 MG tabletIndications: Seasonal allergies TAKE 1 TABLET BY MOUTH DAILY IN THE EVENING 90 tablet 04/06/2019 1 multivitamin tablet Take 2 tablets by mouth daily. 4 nabumetone 500 MG tablet Take 2 tablets by mouth 2 (two) times daily. 10/18/2015 1 polyethylene glycol packet Take 240 mLs (1 packet total) by mouth daily as needed. 4 documented as of this encounter ED Notes * TANYA Tran - 06/18/2019 11:27 AM CDT ED NOTE Chief Complaint Chief Complaint Patient presents with ??? Sore Throat PT AMB TO ER WITH C/O SORE THROAT FOR 3 DAYS. PT REPORTS SEEING WHITE PATCHES ON THROAT. DENIES FEVERS. NO SOB. NO DISTRESS. History of Present Illness 54-year-old female with a history of anxiety presents to the urgent care for evaluation of sore throat for the past 3 days. Patient noticed a white patch on the back of her right tonsil. Able to tolerate solids liquids. No other symptoms associated specifically no fevers, difficulty breathing or swallowing, difficulty opening mouth or jaw, abdominal pain or rash. 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 Medical History ALLERGIES: Allergies Allergen Reactions ??? Levofloxacin Hallucinations, Nausea Only, Nausea and Vomiting and Other (see comment) hallucinations Other reaction(s): Other hallucinations MEDICATIONS: Prior to Admission medications Medication Sig Start Date End Date Taking? Authorizing Provider Albuterol Sulfate (PROAIR RESPICLICK) 108 (90 Base) MCG/ACT AEROSOL POWDER, BREATH ACTIVATED Inhale2 puffs into the lungs 4 (four) times daily as needed. 05/19/18 Doc Abstract ALPRAZolam 0.25 MG tablet Take 1 tablet (0.25 mg total) by mouth nightly as needed for Sleep. 05/01/19 05/31/19 Jaspreet Pearl MD BUPROPION 75 MG tablet TAKE 2 TABLETS BY MOUTH TWICE A DAY 04/11/19 Jaspreet Pearl MD busPIRone 15 MG tablet Take 1 tablet (15 mg total) by mouth 2 (two) times daily. 05/01/19 Jaspreet Pearl MD citalopram 10 MG tablet Take 1 tablet (10 mg total) by mouth daily. 05/01/19 Jaspreet Pearl MD conjugated estrogens 0.625 MG/GM vaginal cream Place 0.5 g vaginally twice a week. Doc Abstract ATD-YLY-Oitlxxu E (OMEGA-3 COMPLEX) 192-251-11 MG-MG-UNIT Cap Take 1 capsule by mouth daily. Doc Abstract dicyclomine 20 MG tablet Take 1 tablet (20 mg total) by mouth every 6 (six) hours. 12/21/18 Jazmine Pearl MD etanercept (ENBREL) 50 MG/ML injection Inject 50 mg into the skin weekly. 05/30/14 Doc Abstract folic acid 1 MG tablet Take 1 tablet by mouth daily. 06/01/14 Doc Abstract methotrexate 2.5 MG tablet TAKE 8 TABLETS EVERY 7 DAYS 06/06/18 Doc Abstract MONTELUKAST 10 MG tablet TAKE 1 TABLET BY MOUTH DAILY IN THE EVENING 04/06/19 Jaspreet Pearl MD multivitamin tablet Take 2 tablets by mouth daily. Doc Abstract nabumetone 500 MG tablet Take 2 tablets by mouth 2 (two) times daily. 10/18/15 Doc Abstract polyethylene glycol (MIRALAX) packet Take 1 packet by mouth daily as needed. Doc Abstract PAST MEDICAL HISTORY: Past Medical History: Diagnosis Date ??? Anxiety PAST SURGICAL HISTORY: Past Surgical History: Procedure Laterality Date ??? CHOLECYSTECTOMY ??? LAMINECTOMY,LUMBAR ??? SEPTOPLASTY FAMILY HISTORY: Family History Problem Relation Name Age of Onset ??? COPD Mother ??? Other (mva) Father SOCIAL HISTORY: Social History Tobacco Use ??? Smoking status: Former Smoker Packs/day: 0.25 Years: 4.00 Pack years: 1.00 Types: Cigarettes Last attempt to quit: 1990 Years since quittin.6 ??? Smokeless tobacco: Never Used ??? Tobacco comment: socially Substance Use Topics ??? Alcohol use: No Frequency: Never ??? Drug use: No Review of Systems Review of Systems Constitutional: Negative for chills and fever. HENT: Positive for sore throat. Negative for ear pain and sinus pain. Eyes: Negative for pain and visual disturbance. Respiratory: Negative for cough and shortness of breath. Cardiovascular: Negative for chest pain and palpitations. Gastrointestinal: Negative for abdominal pain, diarrhea, nausea and vomiting. Genitourinary: Negative for dysuria, hematuria and urgency. Musculoskeletal: Negative for back pain and neck pain. Skin: Negative for rash and wound. Neurological: Negative for dizziness, tremors, seizures and numbness. Psychiatric/Behavioral: Negative. Physical Exam Filed Vitals: 06/18/19 1121 BP: 110/68 Pulse: 61 Resp: 18 Temp: 99.1 ??F (37.3 ??C) TempSrc: Temporal SpO2: 100% Weight: 72.6 kg (160 lb) Height: 5' 9 (1.753 m) Physical Exam Constitutional: She is oriented to person, place, and time. She appears well- developed and well-nourished. Nontoxic appearing HENT: Head: Normocephalic and atraumatic. Right Ear: External ear normal. Left Ear: External ear normal. Mouth/Throat: Oropharynx is clear and moist. Small right sided tonsillar stone. No tonsillar exudate, edema, erythema. Uvula midline. No asymmetry or deviation. No trismus, drooling, soft palate swelling, oral floor elevation or neck induration/overlying cellulitis. No hot potato voice. Eyes: Conjunctivae are normal. Neck: Normal range of motion. Neck supple. Cardiovascular: Normal rate, regular rhythm, normal heart sounds and intact distal pulses. Pulmonary/Chest: Effort normal and breath sounds normal. No respiratory distress. Abdominal: Soft. Bowel sounds are normal. She exhibits no distension. There is no tenderness. Musculoskeletal: Normal range of motion. She exhibits no edema. Neurological: She is alert and oriented to person, place, and time. Skin: Skin is warm and dry. Capillary refill takes less than 2 seconds. No rash noted. Psychiatric: She has a normal mood and affect. Her behavior is normal. Nursing note and vitals reviewed. Diagnostic Studies / Procedures ELECTROCARDIOGRAMS: No results found for this visit on 06/18/19. LABORATORY STUDIES: Results for orders placed or performed during the hospital encounter of 06/18/19 RAPID STREP A Result Value Ref Range RAPID STREP TEST NEGATIVE NEGATIVE IMAGING STUDIES No orders to display ED Course / Medical Decision Making MDM Number of Diagnoses or Management Options Pharyngitis: Tonsil stone: Amount and/or Complexity of Data Reviewed Clinical lab tests: reviewed and ordered ED Course as of Jun 18 1214 Sun Jun 18, 2019 1139 Patient/family informed of level of care and verbalizes understanding. [AD] 1205 No evidence of peritonsillar retropharyngeal abscess. Suspect viral etiology. Plan to treat based off culture. Advised conservative measures and follow-up with PCP. Strict verbal return precautions reviewed. Patient expresses verbal understanding and agreement with plan. All questions answered to the best of my ability. Nontoxic exit exam. Patient discharged home in stable condition. RAPID STREP TEST: NEGATIVE [AD] ED Course User Index [AD] TANYA Tran Medications - No data to display Clinical Impression Pharyngitis (Primary) Tonsil stone Current Discharge Medication List Disposition: Discharge Follow-[place]: [place] [address] [facility] [id number] TANYA TRAN 06/18/2019 TANYA Tran 06/18/19 1214 Cosigned by Jenise Harrison MD at 06/19/2019 7:16 PM CDT documented in this encounter Plan of Treatment Upcoming Encounters Date Type Department Care Team (Late st Contact Info) Description 11/14/2024 8:00 AM BOX WORKER Office Visit [facility]ispec[facility]ty [facility] - [facility] 3 [facility], [address] [place] [phone] Montserrat Oliver NP 3 [facility] [address] [place] [address] 12/06/2024 9:30 AM BOX WORKER Appointment [facility] Open MRI [address] [place] [address] [place] [address] [facility]. [address] [place] [address] 03/02/2025 3:20 PM CDT Office Visit [facility] Family & Internal Medicine - [address] [phone] [place] [address] [facility]. [address] [place] [address] documented as of this encounter Procedures Procedure Name Priority Date/Time Associated Diagnosis Comments STREP A, DNA STAT 06/18/2019 11:25 AM CDT RAPID STREP A STAT 06/18/2019 11:25 AM CDT documented in this encounter Results * STREP A, DNA (06/18/2019 11:25 AM CDT) Pathologist [facility] STREP A MOLECULAR NEGATIVE NEGATIVE 06/18/2019 1:03 PM CDT [facility] Comment: NOTE: A negative result is highly sensitive for S. pyogenes in throat specimens. This test does not distinguish between viable and non-viable organisms. If the result is negative and symptoms persist, additional testing is recommended to rule out other pathogens. 06/18/2019 11:2 5 AM CDT us Chiquita MARTÍNEZ MICROBIOLOGY - GENERAL ORDERA BLES Final Result [facility] [address] [place] [address], [place] [phone] * RAPID STREP A (06/18/2019 11:25 AM CDT) RAPID STREP TEST NEGATIVE NEGATIVE 06/18/2019 11:59 AM CDT [facility] STRUCTURE OF ANTERIOR PORTION OF NECK / Unknown 06/18/2019 11:25 AM CDT us Chiquita Colbert PA MICROBIOLOGY - GENERAL ORDERA BLES Final Result [facility] [address] [place] [address], [place] [phone] documented in this encounter Visit Diagnoses Diagnosis Pharyngitis- Primary Acute pharyngitis Tonsil stone Other chronic disease of tonsils and adenoids documented in this encounter Additional Health Concerns Assessment Noted Time PHQ-9 Depression Total Score: 4 05/01/20 19 3:05 PM CDT documented as of this encounter Care Teams Manager Park Relationship Specialty Start Date End Date Jaspreet Pearl MD PCP - General INTERNAL MEDICINE 11/30/18 02/18/23 documented as of this encounter
--- OUTSIDE RECORDS SUMMARY | 2024-11-13 17:14 | XMS_ITS | Encounter Summary ---
Author Organization [facility] Address [address] [place] [address]. [place], [place] [id number] [place] [address] Care Team Providers Care Hotshot Superintendent Name Role Phone Jaspreet Pearl MD Primary Care Provider Felipe archerelijah Encounter Details Date Type Department Care Team (Late st Contact Info) Description 01/06/2019 Orders Only [facility] Family & Internal Medicine - [place] [address] [place] [address] Bailee Rangel APNP [address] [facility] [address] [place], [place] [id number] Social History Tobacco Use Types Packs/Day Years [...] Master's degree (e.g., MA, MS, Howard, MEd, CUSTOMER LOGISTICS MANAGER, KEKE) 12/21/2018 Comments No Sex and Gender Information Value Date Recorded Sex Assigned at Not on file Legal Sex Female 8:16 PM CDT Gender Identity Not on file Sexual Orientation Not on file 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 Per harvey Rangel to send in prophylactic tamiflu. 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 MACHINE OPERATOR documented in this encounter Plan of Treatment Upcoming Encounters Date Type Department Care Team (Late st Contact Info) Description 11/14/2024 8:00 AM SHEARING MACHINE OPERATOR Office Visit [facility] Multispecialty Care - [facility] 3 [facility], [address] [place] [phone] Montserrat Oliver NP 3 [facility] [address] [place] [address] 12/06/2024 9:30 AM SHEARING MACHINE OPERATOR Appointment [facility] Open MRI [address] [place] [address] [place] [address] [facility] [employer]. [address] [place] [address] 03/02/2025 3:20 PM CDT Office Visit [facility] Family & Internal Medicine - [address] [phone] [place] [address] [facility]. [address] [place] [address] documented as of this encounter Visit Diagnoses Diagnosis Exposure to influenza- Primary Contact with or exposure to other viral diseases documented in this encounter Care Teams Hotshot Superintendent Relationship Specialty Start Date End Date Jaspreet Pearl MD PCP - General INTERNAL MEDICINE 11/30/18 02/18/23 documented as of this encounter
--- OUTSIDE RECORDS SUMMARY | 2024-11-13 17:14 | XMS_ITS | Encounter Summary ---
Author Organization [facility] Address [address] [place] [address]. [place], [place] [address] [place] [address] Care Team Providers Care Plater Apprentice Name Role Phone Jaspreet Madsen MD Primary Care Provider U raynaailable Reason for Visit * Reason Comments Anxiety doing a bit better Encounter Details Date Type Department Care Team (Late st Contact Info) Description 01/31/2019 4:00 PM CDT Office Visit [facility] Family & Internal Medicine [address] [phone] Jaspreet Madsen MD Anxiety (doing a bit better) Social History Tobacco Use Types Packs/Day Years [...] Master's degree (e.g., MA, MS, Howard, MEd, SILVICULTURE PROFESSOR, KEKE) 12/21/2018 Comments No Sex and Gender [...] Sign Reading Time Taken Comments Blood Pressure 130/80 01/31/2019 3:46 PM CDT Pulse 77 01/31/2019 3:46 PM CDT Temperature 36.7 ??C (98 ??F) 01/31/2019 3:46 PM CDT Respiratory Rate 18 01/31/2019 3:46 PM CDT Oxygen Saturation 98% 01/31/2019 3:46 PM CDT Inhaled Oxygen Concentration - - Weight 76.6 kg (168 lb 12.8 oz) 01/31/2019 3:46 PM CDT Height 172.7 cm (5' 8 ) 01/31/2019 3:46 PM CDT Body Mass Index 25.67 01/31/2019 3:46 PM CDT documented in this encounter Progress Notes * Jaspreet Madsen MD - 01/31/2019 4:00 PM CDT Reason for Visit: Anxiety (doing a bit better) Filed Vitals: 01/31/19 1546 BP: 130/80 Pulse: 77 Resp: 18 Temp: 98 ??F (36.7 ??C) SpO2: 98% Weight: 76.6 kg (168 lb 12.8 oz) Height: 5' 8 (1.727 m) Body mass index is 25.67 kg/m??. History of Present Illness: HPI okay good afternoon this is a progress note in Hans she is a pleasant 53-year-old lady witha lot of anxiety the medication seems to be coming her down she took a little bit of Xanax a day asshe needed due to the fact that she is dealing with her mother that has been very sick and she recently lost her that so much is very conscious about it and I think I am going to increase the bupropion to 150 twice a day at this current time since she is tolerating the medication well and feeling alot better I would like to see her back in 3 months and we go from there. She did have a little bitof dermatitis in the past her doctor gave her Bactroban and did help a lot so this time I going to give her some prescription for that in hopefully that will solve the issue also encouraged her to wash her hands with soap before going to bed and then put some rubbing alcohol just once a night before she goes to bed so for now ROS: Review of Systems Constitutional: Negative. HENT: Negative. Eyes: Negative. Respiratory: Negative. Cardiovascular: Negative. Gastrointestinal: Negative. Genitourinary: Negative. Musculoskeletal: Negative. Skin: Negative. Neurological: Negative. Psychiatric/Behavioral: Positive for depression. The patient is nervous/anxious. Definitely improve symptoms with current medication Medications: Current Outpatient Medications: ??? Albuterol Sulfate (PROAIR RESPICLICK) 108 (90 Base) MCG/ACT AEROSOL POWDER, BREATH ACTIVATED, Inhale 2 puffs into the lungs 4 (four) times daily as needed., Disp: , Rfl: ??? ALPRAZolam 0.25 MG tablet, Take 1 tablet by mouth daily., Disp: , Rfl: ??? buPROPion 75 MG tablet, Take 2 tablets (150 mg total) by mouth 2 (two) times daily., Disp: 120 tablet, Rfl: 2 ??? conjugated estrogens 0.625 MG/GM vaginal cream, Place 0.5 g vaginally twice a week., Disp: , Rfl: ??? WBW-MDU-Mglrbkr E (OMEGA-3 COMPLEX) 192-251-11 MG-MG-UNIT Cap, Take 1 capsule by mouth daily., Disp: , Rfl: ??? dicyclomine 20 MG tablet, Take 1 tablet (20 mg total) by mouth every 6 (six) hours., Disp: 120 tablet, Rfl: 0 ??? etanercept (ENBREL) 50 MG/ML injection, Inject 50 mg into the skin weekly. , Disp: , Rfl: ??? folic acid 1 MG tablet, Take 1 tablet by mouth daily., Disp: , Rfl: ??? methotrexate 2.5 MG tablet, TAKE 8 TABLETS EVERY 7 DAYS, Disp: , Rfl: ??? montelukast 10 MG tablet, Take 1 tablet (10 mg total) by mouth nightly at bedtime., Disp: 90 tablet, Rfl: 0 ??? multivitamin tablet, Take 2 tablets by mouth daily., Disp: , Rfl: ??? mupirocin 2 % ointment, Apply topically 3 (three) times daily for 7 days., Disp: 22 g, Rfl: 2 ??? nabumetone 500 MG tablet, Take 2 [...] Master's degree (e.g., MA, MS, Howard, MEd, SILVICULTURE PROFESSOR, KEKE) Occupational History ??? 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 Financial resource strain: Not on file ??? Food insecurity: Worry: Not on file Inability: Not on file ??? Transportation needs: Medical: Not on file Non-medical: Not on file Tobacco Use ??? Smoking status: Former Smoker Packs/day: 0.25 Years: 4.00 Pack years: 1.00 Types: Cigarettes Last attempt to quit: 1989 Years since quittin.2 ??? Smokeless tobacco: [...] atraumatic. Mouth/Throat: Oropharynx is clear and moist. Eyes: [...] Encounter Diagnose(s) ICD-10-CM ICD-9-CM SNOMED CT(R) 1. Dermatitis L30.9 692.9 INFLAMMATORY DERMATOSIS mupirocin 2 % ointment 2. Anxiety F41.9 300.00 ANXIETY buPROPion 75 MG tablet Plan Orders Placed This Encounter ??? buPROPion 75 MG tablet ??? mupirocin 2 % ointment Follow up FU 3 MONTHS JASPREET MADSEN MD 01/31/2019 4:05 PM documented in this encounter Plan of Treatment Upcoming Encounters Date Type Department Care Team (Late st Contact Info) Description 11/14/2024 8:00 AM SURGERY CENTER ADMINISTRATOR Office Visit [facility] Multispecialty Care - [facility] 3 [facility], [address] [place] [address] Montserrat Oliver NP 3 [facility] [address] [place] [address] 12/06/2024 9:30 AM SURGERY CENTER ADMINISTRATOR Appointment [facility] Open MRI [address] [place] [address] [place] [address] [facility]. [address] [place] [address] 03/02/2025 3:20 PM CDT Office Visit [facility] Family & Internal Medicine - [place] [phone] [place] [phone] [place] [address] [facility]. [address] [place] [address] documented as of this encounter Visit Diagnoses Diagnosis Dermatitis- Primary Contact dermatitis and other eczema, due to unspecified cause Anxiety Anxiety state, unspecified Polyarthritis Unspecified polyarthropathy or polyarthritis, site unspecified DURAN (generalized anxiety disorder) Generalized anxiety disorder documented in this encounter Care Teams Plater Apprentice Relationship Specialty Start Date End Date Jaspreet Madsen MD PCP - General INTERNAL MEDICINE 11/30/18 02/18/23 documented as of this encounter
--- OUTSIDE RECORDS SUMMARY | 2024-11-13 17:14 | XMS_ITS | Encounter Summary ---
Author Organization [facility] Address [address] [place] [address]. [place] [address] [place] [address] Care Team Providers Care Product Sales Engineer Name Role Phone Unavailable Primary Care Provider Unavailabl e Reason for Visit * Reason Onset Date Comments Medication Request 10/24/2018 Encounter Details Date Type Department Care Team (Late st Contact Info) Description 10/24/2018 Telephone [facility] Family & Internal Medicine [facility] [address] [place] [address] [place] [id number] [place] [address] Medication Request Social History Tobacco Use Types Packs/Day Years Used Date Smoking Tobacco: Never Assessed Comments Unknown Sex and Gender Information Value Date Recorded Sex Assigned at Not on file Legal Sex Female 8:16 PM CDT Gender Identity Not on file Sexual Orientation Not on file documented as of this encounter Progress Notes * Yan Weber RN - 10/24/2018 3:52 PM CSTAddended by: YAN WEBER on: 10/24/2018 03:52 PM Modules accepted: Orders BURNER HELPER * Yan Weber RN - 10/24/2018 3:51 PM CST Rx sent as requested BURNER HELPER * Aline Valencia MA - 10/24/2018 2:25 PM CST [facility] [place] called and stated that this patient is requesting a refill on her Singular. Her father last week and she cannot come in for an appt right now. BURNER HELPER documented in this encounter Plan of Treatment Upcoming Encounters Date Type Department Care Team (Late st Contact Info) Description 11/14/2024 8:00 AM KILN BURNER HELPER Office Visit [facility] Multispecialty Care - [facility] 3 [facility], [address] [place] [phone] Yan Oliver NP 3 [facility] [address] [place] [address] 12/06/2024 9:30 AM KILN BURNER HELPER Appointment [facility] Open MRI [address] [place] [address] [place] [address] [facility] Darlene. [address] [place] [address] 03/02/2025 3:20 PM CDT Office Visit [facility] Family & Internal Medicine - [address] [phone] [place] [address] [address] [place] [address] documented as of this encounter Visit Diagnoses Diagnosis Seasonal allergies- Primary Allergic rhinitis, cause unspecified documented in this encounter
--- OUTSIDE RECORDS SUMMARY | 2024-11-13 17:14 | XMS_ITS | Encounter Summary ---
Author Organization [facility] Address [address] [place] [address]. [place] [address] [place] [address] Care Team Providers Care Wardrobe Assistant Name Role Phone Jaspreet Pearl MD Primary Care Provider U navailable Reason for Visit * Imaging (Routine) - Closed Specialty Diagnoses / Procedures Referred By Contac t Referred To Contact RADIOLOGY Diagnoses Screening breast examination Procedures MG SCREENING W KRISTEN VICTORIANO DIGI Non-Staff, Provider Referral ID Status Reason Start Date Expiration Date Visits Re quested Visits Authorized [id number] Closed 05/09/2019 06/08/2020 1 1 Encounter Details Date Type Department Care Team (Latest Contact Info) Description 05/31/2019 12:43 PM CDT - 05/31/2019 11:59 PM CDT Hospital Encounter [facility]ography [address] [place] [address] Stalin Calderón MD [address] [address] Discharge Disposition: Home or Self Care (Routine [...] Master's degree (e.g., MA, MS, Howard, MEd, TYPE BAR AND SEGMENT ASSEMBLER, KEKE) 12/21/2018 Comments No Sex and [...] 0.5 g vaginally twice a week. 0 [id number]-[id number] E [id number] MG-MG-UNIT Cap Take 1 capsule [...] st Contact Info) Description 11/14/2024 8:00 AM TYPEWRITER ASSEMBLER Office Visit [facility] Multispecialty Care - [address], [address] [place] [phone] Montserrat Oliver NP 3 [facility] [address] [place] [address] 12/06/2024 9:30 AM TYPEWRITER ASSEMBLER Appointment [facility] MRI [address] [place] [address] [place] [address] [facility] [address] [place] [address] 03/02/2025 3:20 PM CDT Office Visit [facility] Family & Internal Medicine - [place] [address] [place] [phone] [place] [address] [facility] D[facility]. [address] [place] [address] documented as of this encounter Procedures Procedure Name Priority Date/Time Associated Diagnosis Comments MG SCREENING W KRISTEN VICTORIANO DIGI Routine 05/31/2019 1:09 PM CDT Screening breast examination documented in this encounter Results * MG SCREENING W KRISTEN VICTORIANO DIGI (05/31/2019 1:09 PM CDT) Anatomical Region Laterality Modality Breast Bilateral Mammography 05/31/2019 3:13 PM CDT Impressions 05/31/2019 3:16 PM CDT IMPRESSION: ??NO MAMMOGRAPHIC EVIDENCE OF MALIGNANCY. ? INDICATIONS: Screening ? RECOMMENDATION: ??Annual screening mammography bilaterally in 12 months. ? BI-RADS 2. ? MQSA MAMMOGRAM CLASSIFICATIONS: ? BI-RADS 0 - FURTHER IMAGING REQUIRED. ?? BI-RADS 1 - NEGATIVE. ?? BI-RADS 2 - BENIGN FINDING. ?? BI-RADS 3 - PROBABLY BENIGN FINDING. ?? BI-RADS 4 - SUSPICIOUS FOR MALIGNANCY, BIOPSY RECOMMENDED. ?? BI-RADS 5 - HIGHLY SUGGESTIVE OF MALIGNANCY, BIOPSY RECOMMENDED. ? NEGATIVE IMAGING OF THE BREASTS SHOULD NOT PRECLUDE BIOPSY OF A CLINICALLY SUSPICIOUS LESION. ? [facility] utilizes a [facility] reminder program. ?? Interpreted By: Robinson Garcias, 05/31/2019 3:13 PM Narrative 05/31/2019 3:16 PM CDT EXAMINATION: MG SCREENING W KRISTEN VICTORIANO DIGI ? Exam: BILATERAL DIGITAL MAMMOGRAM WITH 2D,3D ??WITH CAD: ? Comparison is made to prior studies the most recent of which are 06/23/2018, 06/22/2017, and 06/15/2016. ? Tissue density: There are scattered areas of fibroglandular density. Findings: Grossly stable examination to include multiple scattered typically benign punctate and vascular calcifications bilaterally. No suspicious microcalcification or mass. No appreciable developing asymmetry or architectural distortion. us Provider Non-Staff MAMMO Final Result documented in this encounter Visit Diagnoses Not on filedocumented in this encounter Additional Health Concerns Assessment Noted Time PHQ-9 Depression Total Score: 4 05/01/20 19 3:05 PM CDT documented as of this encounter Care Teams Wardrobe Assistant Relationship Specialty Start Date End Date Jaspreet Pearl MD PCP - General INTERNAL MEDICINE 11/30/18 02/18/23 documented as of this encounter
--- OUTSIDE RECORDS SUMMARY | 2024-11-13 17:14 | XMS_ITS | Encounter Summary ---
Author Organization [facility] Address [address] [place] [address]. [place] [address] [place] [address] Care Team Providers Care Maple Syrup Maker Name Role Phone Unavailable Primary Care Provider Unavailabl e Encounter Details Date Type Department Care Team (Late st Contact Info) Description 05/19/2018 Abstract [facility] Medical Group Family & Internal Medicine [address] [address] Jaspreet Pearl MD Social History [...] Sign Reading Time Taken Comments Blood Pressure 117/80 05/19/2018 11:08 AM CDT Pulse 85 05/19/2018 11:08 AM CDT Temperature - - Respiratory Rate - - Oxygen Saturation - - Inhaled Oxygen Concentration - - Weight 78 kg (172 lb) 05/19/2018 11:08 AM CDT Height 170.2 cm (5' 7 ) 05/19/2018 11:08 AM CDT Body Mass Index 26.94 05/19/2018 11:08 AM CDT documented in this encounter Progress Notes * Jaspreet Pearl MD - 05/19/2018 11:20 AM CDT Chief Complaint Pt still having cough and congestion. Pt states symptoms had gotten worse while on her trip to [facility]. Pt stated she was wheezing and having a hard time breathing, Doctor in [place] prescribed these medications but the Pt stopped taking them on 05/16/18 Polaramine 2 x a day Fluimucil 1 x a day Paracetamol 2 x a day History of Present Illness A 53-year-old lady very pleasant. Unfortunately, she went to [place] to visit her daughter and she ended up having some wheezing and difficulty breathing. She is a little traumatized by that. She went to see a doctor there who gave her a decongestant. No inhalers or anything like that, something for pain and decongestant. Review of Systems See HPI for pertinent positives. Constitutional: no fever, no chills and no headache. ENT: see HPI. Cardiovascular: no chest pain, no intermittent leg claudication, no lower extremity edema and no palpitations. Respiratory: see HPI. Gastrointestinal: no abdominal pain, no constipation, no heartburn, no melena, no diarrhea and no vomiting. Genitourinary: no dysuria and no incontinence. Integumentary: no skin lesions and no skin rash. Musculoskeletal: no arthralgias, no joint swelling, no limb pain, no joint stiffness and no joint pain. Neurological: no confusion, no dizziness, no limb weakness and no difficulty walking. Psychiatric: no anxiety, no suicidal ideation and no depression. Active Problems 1. Allergic rhinitis (477.9) (J30.9) 2. Amenorrhea (626.0) (N91.2) 3. Anxiety (300.00) (F41.9) 4. Arthritis (716.90) (M19.90) 5. BMI 27.0-27.9,adult (V85.23) (Z68.27) 6. Cough in adult (786.2) (R05) 7. Esophageal reflux (530.81) (K21.9) 8. Inflammatory arthritis (714.9) (M19.90) 9. Insomnia (780.52) (G47.00) 10. Irritable bowel syndrome (564.1) (K58.9) 11. Laryngitis (464.00) (J04.0) 12. Polyarthritis (716.50) (M13.0) 13. Sinusitis, acute (461.9) (J01.90) 14. Wears glasses (V49.89) (Z97.3) Past Medical History 1. History of Hip pain, left (719.45) (M25.552) 2. History of acute bronchitis (V12.69) (Z87.09) 3. History of acute pharyngitis (V12.69) (Z87.09) 4. History of sore throat (V12.60) (Z87.09) 5. History of sore throat (V12.60) (Z87.09) 6. History of ulcerative colitis (V12.79) (Z87.19) 7. History of Leg pain, posterior, right (729.5) (M79.604) 8. History of Oral ulcer (528.9) (K12.1) 9. History of URI, acute (465.9) (J06.9) Surgical History 1. History of Colonoscopy 2. History of Gallbladder Surgery 3. History of lumbar laminectomy 4. History of Septoplasty Family History Mother 1. No pertinent family history Social History ?? Completed college, bachelors degree ?? Daily caffeine consumption ?? Exercises regularly ?? House ? Never a smoker ?? No advance directives (V49.89) (Z78.9) ?? No alcohol use ?? No illicit drug use ?? 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 Benzonatate 200 MG Oral Capsule; TAKE 1 CAPSULE 3 TIMES DAILY NEEDED; Therapy: 29Apr2018 to (Evaluate:14May2018) Requested for: 04May2018; Last Rx:04May2018 Ordered 2. Dicyclomine HCl - 20 MG Oral Tablet; TAKE 1 TABLET BY MOUTH EVERY 6 HOURS NEEDED; Therapy: 51Wbn1744 to (Evaluate:48Uka0931) Requested for: 28Feb2018; Last Rx:90Iih1424 Ordered 3. Enbrel 50 MG/ML Subcutaneous Solution Prefilled Syringe; INJECT 50MG ONCE A WEEK; Therapy: 64Erz2464 to (Evaluate:23Mar2017) Recorded 4. Fluticasone Propionate 50 MCG/ACT Nasal Suspension; One spray each nostril two times daily; Therapy: 23Afc0166 to (Last Rx:04Apr2018) Requested for: 04Apr2018 Ordered 5. Folic Acid 1 MG Oral Tablet; TAKE 1 TABLET DAILY; Therapy: 67Bkq4907 to (Evaluate:19Jbz9613) Recorded 6. Hydrocod Polst-CPM Polst ER 10-8 MG/5ML Oral Suspension Extended Release; 5 ml by mouth every 12 hours for cough; Therapy: 17Mar2018 to (Last Rx:72Qpj3869) Ordered 7. Methotrexate 2.5 MG Oral Tablet; TAKE 8 TABLET Weekly; Therapy: 45Xch0685 to Recorded 8. MiraLax Oral Packet; MIX 1 PACKET IN 8 OUNCES OF LIQUID AND DRINK ONCE DAILY. prn; Therapy: (Recorded:83Onx5506) to Recorded 9. Montelukast Sodium 10 MG Oral Tablet; TAKE 1 TABLET IN THE EVENING; Therapy: 29Apr2018 to (Evaluate:27Aug2018) Requested for: 29Apr2018; Last Rx:29Apr2018 Ordered 10. Multi-Vitamins TABS; TAKE 2 TABLET Daily; Therapy: (Recorded:71Jiv4732) to Recorded 11. Nabumetone 500 MG Oral Tablet; TAKE 2 TABLET TWICE DAILY; Therapy: 40Koj2382 to Recorded 12. [place]-3 Complex 192-251-11 MG-MG-UNIT Oral Capsule; Take one cap daily; Therapy: (Recorded:04Dec2014) to Recorded 13. Premarin 0.625 MG/GM Vaginal Cream; Insert 0.5 gram 3 times weekly at hs; Therapy: 83Sjq5756 to (Evaluate:05Vjd7772) Recorded Allergies 1. Levaquin TABS Vitals Recorded: 47Vvv3899 11:08AM Temperature 98.1 F Heart Rate 85 Respiration 17 Systolic 117 Diastolic 80 O2 Saturation 98 Height 5 ft 7 in Weight 172 lb BMI Calculated 26.94 BSA Calculated 1.9 Physical Exam Constitutional General appearance: No acute distress, well appearing and well nourished. Eyes Conjunctiva and lids: No swelling, erythema or discharge. Ears, Nose, Mouth, and Throat External inspection of ears and nose: Normal. Oropharynx: Normal with no erythema, edema, exudate or lesions. Pulmonary The lungs are a little coarse but no wheezing whatsoever. Good ventilation. Pulse ox is good. She is mainly just shaking up, very anxious and crying. Because of the experience, she could not breath she said... Cardiovascular The heart is regular. No murmurs... Abdomen Abdomen: Non-tender, no masses. Lymphatic Palpation of lymph nodes in neck: No lymphadenopathy. Musculoskeletal No edema in the lower extremities... Skin Skin and subcutaneous tissue: Normal without rashes or lesions. Neurologic Cranial nerves: Cranial nerves 2-12 intact. Reflexes: 2+ and symmetric. Psychiatric Orientation to person, place, and time: Normal. Mood and affect: Normal. Assessment 1. BMI 26.0-26.9,adult (V85.22) (Z68.26) 2. Allergic rhinitis (477.9) (J30.9) 3. Anxiety (300.00) (F41.9) 4. Shortness of breath at rest (786.05) (R06.02) Plan Allergic rhinitis 1. ProAir RespiClick 108 (90 Base) MCG/ACT Inhalation Aerosol Powder Breath Activated; INHALE 2 PUFFS 4 times daily PRN Rx By: Jaspreet Pearl; Dispense: 0 Days ; #:1 Inhaler; Refill: 0; For: Allergic rhinitis; EMA = N; Verified Transmission to [facility]; Last Updated By: Meredith TafoyaGlassbeam; 05/19/2018 11:47:58 AM Anxiety 2. ALPRAZolam 0.25 MG Oral Tablet; Take 1 tablet daily Rx By: Jaspreet Pearl; Dispense: 30 Days ; #:30 Tablet; Refill: 0; For: Anxiety; EMA = N; Print Rx Sinusitis, acute 3. Doxycycline Monohydrate 100 MG Oral Tablet; Take 1 tablet twice daily Rx By: Jaspreet Pearl; Dispense: 7 Days ; #:14 Tablet; Refill: 0; For: Sinusitis, acute; EMA =N; Verified Transmission to [facility]; Last Updated By: Metaps; 05/19/2018 11:50:04 AM Discussion/Summary At this time, I am going to give her a rescue inhaler to keep with her, another sample of Symbicort. Continue Montelukast and I am going to give her another 5 to 7 days of the antibiotic that worked good for her. I think she started with bronchitis. She showed me a picture of the sputum from this morning which she still has some yellowy-tinged discoloration. Otherwise, I would like to see her back in 1 week. I want to see her back soon because she is becoming a little too anxious, and I gave her some Xanax to take as needed to relax her before things get worse. She does have a history of someanxiety in the past due to IBS according to what she said but she has not been taking Xanax in quite a while, so we will do that and go from there. Signatures Electronically signed by : Jaspreet Pearl M.D.; May 25 2018 1:18PM WASTE OIL PUMPER (Author) documented in this encounter Plan of Treatment Upcoming Encounters Date Type Department Care Team (Late st Contact Info) Description 11/14/2024 8:00 AM WASTE OIL PUMPER Office Visit [facility] Multispecialty Care - [address], [address] [place] [phone] Montserrat Oliver NP 3 [facility] [address] [place] [address] 12/06/2024 9:30 AM WASTE OIL PUMPER Appointment [facility] Open MRI [address] [place] [address] [place] [address] [facility]. [address] [place] [address] 03/02/2025 3:20 PM CDT Office Visit [facility] Family & Internal Medicine - [place] [address] [place] [phone] [place] [address] [facility] Darlene. [address] [place] [address] documented as of this encounter Visit Diagnoses Not on filedocumented in this encounter
--- OUTSIDE RECORDS SUMMARY | 2024-11-13 17:14 | XMS_ITS | Encounter Summary ---
Author Organization [facility] Address [address] [place] [address]. [place] [address] [place] [address] Care Team Providers Care Director Of In Service Education Name Role Phone Unavailable Primary Care Provider Unavailabl e Encounter Details Date Type Department Care Team (Latest Contact Info) Description 06/23/2018 Abstract [facility] Medical Group , Kings Nunez MD Social History Tobacco Use Types Packs/Day [...] Contact Info) Description 11/14/2024 8:00 AM DIRECTOR CRAFT CENTER Office Visit [facility] Multispecialty Care - [facility] 3 [facility], [address] [place] [phone] Montserrat Oliver NP 3 [facility] [address] [place] [address] 12/06/2024 9:30 AM DIRECTOR CRAFT CENTER Appointment [facility] Open MRI [address] [place] [address] [place] [address] [address] [place] [address] 03/02/2025 3:20 PM CDT Office Visit [facility] Medical Group Family & Internal Medicine - [place] [address] [place] [address] [place] [address] [facility]. [address] [place] [address] documented as of this encounter Visit Diagnoses Not on filedocumented in this encounter
--- OUTSIDE RECORDS SUMMARY | 2024-11-13 17:14 | XMS_ITS | Encounter Summary ---
Author Organization [facility] Address [address] [place] [address]. [place] [address] [place] [address] Care Team Providers Care Elementary [employer] Social Worker Name Role Phone Unavailable Primary Care Provider Unavailabl e Encounter Details Date Type Department Care Team (Latest Contact Info) Description 05/05/2018 Abstract [facility] Medical [facility] Social History Tobacco Use Types Packs/Day Years Used Date Smoking Tobacco: Never Assessed Comments Unknown Sex and Gender Information Value Date Recorded Sex Assigned at Not on file Legal Sex Female 8:16 PM CDT Gender Identity Not on file Sexual Orientation Not on file documented as of this encounter Progress Notes * Generic Conversion MD Jerrod - 05/05/2018 2:36 PM CDT Message Message: Pt called stating she is leaving for [facility] on Wednesday. She saw PCP on 04/29 for nasal drainage/cough symptoms. PCP prescribed Symbicort and Singulair and symptoms seemed to resolve until yesterday. Yesterday complaint of cough with green phlegm. Because pt is leaving for [facility], PCP prescribed doxycycline as precautionary measures. Pt has PMH of rheumatoid arthritis and upper respiratory infections. Pt is wanting to know if she can still take methotrexate and Enbrel as prescribed by Rheum. Pt denies fevers, chills, body aches, SOB or confusion. Only complaint is cough. As s/sx seem more allergy related and non-severe, advisedpt to take Enbrel and methotrexate as benefits of preventing flare outweigh risk as this point. Perpackage insert methotrexate + doxycycline likely not a problem when using antirheumatic doses of methotrexate. Pt advised that if any s/sx of sepsis such as fever, chills, confusion arise to seek medical attention immediately. Pt questioned if Claritin or Zyrtec could be used safely with Singulair. Informed that no drug-drug interactions exist. Pt voice understanding. All questions answered. Signatures Electronically signed by : Genvea Tan, ; May 05 2018 2:51PM ENROLLMENT ELIGIBILITY REPRESENTATIVE (Author) documented in this encounter Plan of Treatment Upcoming Encounters Date Type Department Care Team (Late st Contact Info) Description 11/14/2024 8:00 AM ENROLLMENT ELIGIBILITY REPRESENTATIVE Office Visit [facility] Multispecialty Care - [facility] 3 [facility], [address] [place] [phone] Montserrat Oliver NP 3 [facility] [address] [place] [address] 12/06/2024 9:30 AM ENROLLMENT ELIGIBILITY REPRESENTATIVE Appointment [facility] Open MRI [address] [place] [address] [place] [address] [facility]. [address] [place] [address] 03/02/2025 3:20 PM CDT Office Visit [facility] Family & Internal Medicine - [address] [phone] [place] [address] [facility] [address] [place] [address] documented as of this encounter Visit Diagnoses Not on filedocumented in this encounter
--- OUTSIDE RECORDS SUMMARY | 2024-11-13 17:14 | XMS_ITS | Encounter Summary ---
Author Organization [facility] [place] [facility] Address [address] [place] [address]. [place], [place] [address] [place] [address] Care Team Providers Care Strategic Buyer Name Role Phone Unavailable Primary Care Provider Unavailabl e Encounter Details Date Type Department Care Team (Latest Contact Info) Description 05/24/2018 Abstract [facility] Medical Group Social History Tobacco Use Types Packs/Day Years Used Date Smoking Tobacco: Never Assessed Comments Unknown Sex and Gender Information Value Date Recorded Sex Assigned at Not on file Legal Sex Female 8:16 PM CDT Gender Identity Not on file Sexual Orientation Not on file documented as of this encounter Progress Notes * Kings Nunez Md, MD - 05/24/2018 11:19 AM CDT Message Recorded as Task Date: 05/24/2018 10:21 AM, Created By: Jaspreet Pearl Task Name: Call Patient with results Assigned To: Jaspreet Pearl Regarding Patient: Hans Pascual, Status: Active Comment: Jaspreet Pearl - 24 May 2018 10:21 AM Patient normal cxr. Montserrat Weber - 24 May 2018 11:19 AM TASK EDITED pt. informed, v/u Signatures Electronically signed by : Montserrat Weber, ; May 24 2018 11:20AM PRINT AND PATTERN DESIGNER (Author) documented in this encounter Plan of Treatment Upcoming Encounters Date Type Department Care Team (Late st Contact Info) Description 11/14/2024 8:00 AM PRINT AND PATTERN DESIGNER Office Visit [facility] Medical [facility] Multispecialty Care - [facility] 3 [facility], [address] [place] [address] Montserrat Oliver NP 3 [facility] [address] [place] [address] 12/06/2024 9:30 AM PRINT AND PATTERN DESIGNER Appointment [facility] Open MRI [address] [facility] [place] [address] [place] [address] [facility] Darlene. [address] [place] [phone] 03/02/2025 3:20 PM CDT Office Visit [facility] Medical Group Family & Internal Medicine - [address] [phone] [place] [address] [address] [place] [address] documented as of this encounter Visit Diagnoses Not on filedocumented in this encounter
--- OUTSIDE RECORDS SUMMARY | 2024-11-13 17:14 | XMS_ITS | Encounter Summary ---
Author Organization [facility] Address [address] [place] [address]. [place], [place] [id number] [place] [address] Care Team Providers Care Structural Technician Name Role Phone Jaspreet Madsen MD Primary Care Provider U juan carlos Reason for Visit * Reason Comments Anxiety about the same. Encounter Details Date Type Department Care Team (Late st Contact Info) Description 05/01/2019 3:00 PM CDT Office Visit [facility] Family & Internal Medicine [address] [phone] Jaspreet Madsen MD Anxiety (about the same. ) Social History Tobacco Use Types Packs/Day [...] Master's degree (e.g., MA, MS, Howard, MEd, HAND PLEATER, KEKE) 12/21/2018 Comments No Sex and Gender [...] Sign Reading Time Taken Comments Blood Pressure 124/80 05/01/2019 3:02 PM CDT Pulse 82 05/01/2019 3:02 PM CDT Temperature 36.6 ??C (97.8 ??F) 05/01/2019 3:02 PM CD T Respiratory Rate 16 05/01/2019 3:02 PM CDT Oxygen Saturation 96% 05/01/2019 3:02 PM CDT Inhaled Oxygen Concentration - - Weight 74.2 kg (163 lb 9.6 oz) 05/01/2019 3:02 P M CDT Height 172.7 cm (5' 8 ) 05/01/2019 3:02 PM CDT Body Mass Index 24.88 05/01/2019 3:02 PM CDT documented in this encounter Progress Notes * Jaspreet Madsen MD - 05/01/2019 3:00 PM CDT Reason for Visit: Anxiety (about the same. ) Filed Vitals: 05/01/19 1502 BP: 124/80 Pulse: 82 Resp: 16 Temp: 97.8 ??F (36.6 ??C) SpO2: 96% Weight: 74.2 kg (163 lb 9.6 oz) Height: 5' 8 (1.727 m) Body mass index is 24.88 kg/m??. History of Present Illness: HPI good afternoon this is an office visit in Mrs. guillory that is how she likes to be call she has a history of a lot of anxiety all her life she is being very anxious and she did have a time after her last child that she was very depressed at this time she comes and she would like to try somethingelse or add something else her son and mother are taking antidepressant medications in at this timeI going to try her in a low dose citalopram at 10 mg/day and see how she responds. In the past she was on Zoloft when her son was born and to help her with her depression but it wipeout her libido and she does not want to do that at this point. So we have not tried citalopram a very low dose and see if it helps her anxieties she is receiving also counseling and she likes that I will see her back in 3 months ROS: Review of Systems Constitutional: Negative. HENT: [...] for Sleep.,Disp: 30 tablet, Rfl: 0 ??? BUPROPION 75 MG tablet, TAKE 2 TABLETS BY MOUTH TWICE A DAY, Disp: 120 tablet, Rfl: 2 ??? busPIRone [...] twice a week., Disp: , Rfl: ??? RNB-LEN-Eencsxy E (OMEGA-3 COMPLEX) 192-251-11 MG-MG-UNIT Cap, Take [...] EVENING, Disp: 90 tablet, Rfl: 0 ??? nabumetone 500 MG tablet, Take 2 tablets by mouth 2 (two) times daily., Disp: , Rfl: ??? polyethylene glycol (MIRALAX) packet, Take 1 packet by mouth daily as needed., Disp: , Rfl: ??? multivitamin tablet, Take 2 tablets by mouth daily., Disp: , Rfl: Allergies [...] Master's degree (e.g., MA, MS, Howard, MEd, HAND PLEATER, KEKE) Occupational History ??? 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 Financial resource strain: Not on file ??? Food insecurity: Worry: Not on file Inability: Not on file ??? Transportation needs: Medical: Not on file Non-medical: Not on file Tobacco Use ??? Smoking status: Former Smoker Packs/day: 0.25 Years: 4.00 Pack years: 1.00 Types: Cigarettes Last attempt to quit: 1989 Years since quittin.4 ??? Smokeless tobacco: [...] file Gets together: Not on file Attends hindu service: Not on file Active member of [...] No rash noted. No erythema. Psychiatric: Her behavior is normal. Judgment and thought content normal. She is very anxious during the interview she had several times that she seems to be ready to cry sowe had a long conversation how to address the emotional component of interactions etc. she said that the therapist has been working on that with her Nursing note and vitals reviewed. Assessment Encounter Diagnose(s) ICD-10-CM ICD-9-CM SNOMED CT(R) 1. DURAN (generalized anxiety disorder) F41.1 300.02 GENERALIZED ANXIETY DISORDER citalopram 10 MG tablet busPIRone 15 MG tablet ALPRAZolam 0.25 MG tablet 2. Arthritis M19.90 716.90 ARTHRITIS Plan Orders Placed This Encounter ??? citalopram 10 MG tablet ??? busPIRone 15 MG tablet ??? ALPRAZolam 0.25 MG tablet So this time I going to see her back in 3 months and is starting citalopram 10 mg once a day the rest of the medications will stay the same and she will take Xanax here and there if need to Follow up FU 3 MONTHS JASPREET MADSEN MD 05/01/2019 3:52 PM documented in this encounter Plan of Treatment Upcoming Encounters Date Type Department Care Team (Late st Contact Info) Description 11/14/2024 8:00 AM DIANETICIST Office Visit [facility] Multispecialty Care - [address], [address] [place] [phone] Montserrat Oliver NP 3 [facility] [address] [place] [address] 12/06/2024 9:30 AM DIANETICIST Appointment [facility] MRI [address] [place] [address] [place] [address] [facility]. [address] [place] [address] 03/02/2025 3:20 PM CDT Office Visit [facility] Family & Internal Medicine - [place] [id number] [place] [phone] [place] [address] [facility]. [address] [place] [address] documented as of this encounter Visit Diagnoses Diagnosis DURAN (generalized anxiety disorder)- Primary Generalized anxiety disorder Arthritis Arthropathy, unspecified, site unspecified documented in this encounter Additional Health Concerns Assessment Noted Time PHQ-9 Depression Total Score: 4 05/01/20 19 3:05 PM CDT documented as of this encounter Care Teams Structural Technician Relationship Specialty Start Date End Date Jaspreet Madsen MD PCP - General INTERNAL MEDICINE 11/30/18 02/18/23 documented as of this encounter
--- OUTSIDE RECORDS SUMMARY | 2024-11-13 17:14 | XMS_ITS | Encounter Summary ---
Author Organization [facility] Address [address] [place] [address]. [place] [address] [place] [address] Care Team Providers Care Limo Driver Name Role Phone Unavailable Primary Care Provider Unavailabl e Encounter Details Date Type Department Care Team (Late st Contact Info) Description 05/26/2018 Abstract [facility] Medical Group Family & Internal Medicine [address] [phone] Jaspreet Madsen MD Social History Tobacco Use Types Packs/Day Years Used Date Smoking Tobacco: Never Assessed Comments Unknown Sex and Gender Information Value Date Recorded Sex Assigned at Not on file Legal Sex Female 8:16 PM CDT Gender Identity Not on file Sexual Orientation Not on file documented as of this encounter Last Filed Vital Signs Vital Sign Reading Time Taken Comments Blood Pressure 100/60 05/26/2018 2:08 PM CDT Pulse 74 05/26/2018 2:08 PM CDT Temperature - - Respiratory Rate - - Oxygen Saturation - - Inhaled Oxygen Concentration - - Weight 77.6 kg (171 lb 2.1 oz) 05/26/2018 2:08 P M CDT Height 170.2 cm (5' 7 ) 05/26/2018 2:08 PM CDT Body Mass Index 26.8 05/26/2018 2:08 PM CDT documented in this encounter Progress Notes * Jaspreet Madsen MD - 05/26/2018 2:00 PM CDT Verified Results XR CHEST 2 VIEW ( Routine ) [id number] 10:09AM Jaspreet Madsen Test Name Result Flag Reference XR CHEST 2 VIEW (Report) HANS PASCUAL ADMIT/SERVICE DATE: 05/24/18 ACCT: [id number] DISCHARGE DATE: : 1965 SEX: F ORD SITE: [facility] PT TYPE: REG CLI ORDERING MD: JASPREET MADSEN MD STUDY DATE REPORT # ORDER # EXT ORDER ID 05/24/18 [id number] PROC CODE: CXR2V PROCEDURE DESCRIPTION: XR CHEST 2 VIEW IMAGING STUDIES: XR CHEST 2 VIEW DATE: 05/24/2018 9:39 AM CLINICAL HISTORY: OTHER - ACUTE BRONCHITIS . SYMPTOMS FOR 3 WEEKS COMPARISON: NO COMPARISONS. CONCLUSION: 1. NO EVIDENCE OF ACUTE CARDIOPULMONARY DISEASE. 2. NO EVIDENCE OF PLEURAL EFFUSION OR PNEUMOTHORAX. NO CHF. 3. NORMAL HEART SIZE. POSSIBLE MILD ATHEROSCLEROTIC AORTA. MINIMAL DEGENERATIVE CHANGE IN THORACIC SPINE.. ELECTRONICALLY SIGNED BY Esau BROOKE MD ON 05/24/2018 10:10 AM * Jaspreet Madsen MD - 05/26/2018 2:00 PM CDT Chief Complaint here for f/u on cold. doing better. still having some drainage in her throat. History of Present Illness A 53-year-old lady, comes today as she has been dealing recently with an upper respiratory infection that does not improve. Today, she is a lot better than the last time, but she started taking the methotrexate now, and not the Enbrel yet. She wants to get better before that. She has been talking with the rubber goods inspector tester. Other than, everything looks pretty good. She also has history of irritable bowel syndrome and some type of inflammatory arthritis for which she sees the rubber goods inspector tester. Review of Systems See HPI for pertinent positives. Constitutional: no fever, no chills and no headache. ENT: no earache, no sore throat, no hearing loss and no nasal discharge. Cardiovascular: no chest pain, no intermittent leg [...] ideation and no depression. Active Problems 1. Acute bronchitis (466.0) (J20.9) 2. Allergic rhinitis (477.9) (J30.9) 3. Amenorrhea (626.0) (N91.2) 4. Anxiety (300.00) (F41.9) 5. Arthritis (716.90) (M19.90) 6. BMI 26.0-26.9,adult (V85.22) (Z68.26) 7. BMI 27.0-27.9,adult (V85.23) (Z68.27) 8. Cough in adult (786.2) (R05) 9. Esophageal reflux (530.81) (K21.9) 10. Inflammatory arthritis (714.9) (M19.90) 11. Insomnia (780.52) (G47.00) 12. Irritable bowel syndrome (564.1) (K58.9) 13. Laryngitis (464.00) (J04.0) 14. Polyarthritis (716.50) (M13.0) 15. Shortness of breath at rest (786.05) (R06.02) 16. Sinusitis, acute (461.9) (J01.90) 17. Wears glasses (V49.89) (Z97.3) Past Medical History [...] No illicit drug use ?? 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 ALPRAZolam 0.25 MG Oral Tablet; Take 1 tablet daily; Therapy: 84Bbo3509 to (Evaluate:61Jak5743); Last Rx:[id number] Ordered Rx By: Jaspreet Madsen; Dispense: 30 Days ; #:30 Tablet; Refill: 0; For: Anxiety; EMA = N; Print Rx 2. Benzonatate 200 MG Oral Capsule; TAKE 1 CAPSULE 3 TIMES DAILY NEEDED; Therapy: 29Apr2018 to (Evaluate:92Goh7573) Requested for: 13Ccr2590; Last Rx:[id number] Ordered Rx By: Jaspreet Madsen; Dispense: 10 Days ; #:30 Capsule; Refill: 0; For: Cough in adult; EMA =N; Verified Transmission to [facility] Last Updated By: Summit Wine Tastings; 05/26/2018 2:11:58 PM 3. Dicyclomine HCl - 20 MG Oral Tablet; TAKE 1 TABLET BY MOUTH EVERY 6 HOURS NEEDED; Therapy: 82Fpr2437 to (Evaluate:22Vcv3136) Requested for: 18Hwt8974; Last Rx:[id number] Ordered Rx By: Ariane Solares; Dispense: 30 Days ; #:120 Tablet; Refill: 2; For: Irritable bowel syndrome; EMA= N; Verified Transmission to [facility] Last Updated By: Summit Wine Tastings; 02/28/20188:24:37 AM 4. Enbrel 50 MG/ML Subcutaneous Solution Prefilled Syringe; INJECT 50MG ONCE A WEEK; Therapy: 14Uzy2876 to (Evaluate:64Ski3963) Recorded Dispense: 28 Days ; #: Sufficient ML; Refill: 0; For: Inflammatory arthritis; EMA = N; Record; LastUpdated By: Argelia Chan; 02/23/2017 2:22:47 PM 5. Folic Acid 1 MG Oral Tablet; TAKE 1 TABLET DAILY; Therapy: 09Ojb7853 to (Evaluate:32Gsj1751) Recorded Dispense: 30 Days ; #:30 Tablet; Refill: 3; For: Health Maintenance; EMA = Y; Record; Last Updated By: Bianca Thornton; 05/26/2018 2:15:08 PM 6. Methotrexate 2.5 MG Oral Tablet; TAKE 8 TABLET Weekly; Therapy: 28Feb2018 to Recorded Dispense: 0 Days ; #: Sufficient Tablet; Refill: 0; For: Inflammatory arthritis; EMA = N; Record; Last Updated By: Bianca Thornton; 05/26/2018 2:15:08 PM 7. MiraLax Oral Packet; MIX 1 PACKET IN 8 OUNCES OF LIQUID AND DRINK ONCE DAILY. prn; Therapy: (Recorded:58Kic0163) to Recorded Dispense: 15 Days ; #:15 Packet; Refill: 0; For: Irritable bowel syndrome; EMA = N; Record; Last Updated By: Sehrin Abdi; 03/17/2018 1:27:46 PM 8. Montelukast Sodium 10 MG Oral Tablet; TAKE 1 TABLET IN THE EVENING; Therapy: 29Apr2018 to (Evaluate:27Aug2018) Requested for: 29Apr2018; Last Rx:29Apr2018 Ordered Rx By: Jaspreet Madsen; Dispense: 30 Days ; #:30 Tablet; Refill: 3; For: Cough in adult; EMA = N; Verified Transmission to [facility] Last Updated By: Crystal Tafoya; 04/29/2018 8:21:16 AM 9. Multi-Vitamins TABS; TAKE 2 TABLET Daily; Therapy: (Recorded:78Kak0083) to Recorded Dispense: 0 Days ; #: Sufficient Tablet; Refill: 0; For: Health Maintenance; EMA = N; Record; Last Updated By: Bianca Thornton; 05/26/2018 2:15:07 PM 10. Nabumetone 500 MG Oral Tablet; TAKE 2 TABLET TWICE DAILY; Therapy: 98Byy2222 to Recorded Dispense: 0 Days ; #: Sufficient Tablet; Refill: 0; For: Inflammatory arthritis; EMA = N; Record; Last Updated By: Yohana Rodriguez; 10/18/2015 8:38:42 AM 11. Claypool-3 Complex 192-251-11 MG-MG-UNIT Oral Capsule; Take one cap daily; Therapy: (Recorded:78Wfb1615) to Recorded Dispense: 0 Days ; #: Sufficient Capsule; Refill: 0; For: Health Maintenance; EMA = N; Record; LastUpdated By: Bianca Thornton; 05/26/2018 2:15:07 PM 12. Premarin 0.625 MG/GM Vaginal Cream; Insert 0.5 gram 3 times weekly at hs; Therapy: 63Koh0772 to (Evaluate:73Amh5705) Recorded Dispense: 0 Days ; #: Sufficient X 30 GM Tube; Refill: 0; For: Health Maintenance; EMA = N; Record;Last Updated By: Bianca Thornton; 05/26/2018 2:15:08 PM 13. ProAir RespiClick 108 (90 Base) MCG/ACT Inhalation Aerosol Powder Breath Activated; INHALE 2 PUFFS 4 times daily PRN; Therapy: 17Qot6280 to (Last Rx:76Yfn5984) Requested for: 02Udf4971 Ordered Rx By: Jaspreet Madsen; Dispense: 0 Days ; #:1 Inhaler; Refill: 0; For: Allergic rhinitis; EMA = N; Verified Transmission to [facility] Last Updated By: Crystal Tafoya; 05/26/2018 2:41:46 PM 14. Symbicort 80-4.5 MCG/ACT Inhalation Aerosol; INHALE 2 PUFFS TWICE DAILY - RINSE MOUTH AFTER USE; Therapy: 30Kwd8992 to (Last Rx:04Dzz9803) Ordered Rx By: Jaspreet Madsen; Dispense: 0 Days ; #:1 X 10.2 GM Inhaler; Refill: 2; For: Cough in adult; EMA = N; Dispense Sample; Last Updated By: Montserrat Weber; 05/26/2018 2:41:45 PM Allergies 1. Levaquin TABS Hallucinations; Nausea; Updated By: Loreto Mendoza; 02/28/2018 8:03:53 AM Vitals Recorded: 26May2018 02:08PM Temperature 98.5 F Heart Rate 74 Respiration 18 Systolic 100 Diastolic 60 O2 Saturation 98 Height 5 ft 7 in Weight 171 lb 2 oz BMI Calculated 26.8 BSA Calculated 1.89 Physical Exam Constitutional General appearance: No acute distress, well appearing and well nourished. Eyes Conjunctiva and lids: No swelling, erythema or discharge. Pupils and irises: Equal, round and reactive to light. Ears, Nose, Mouth, and Throat External inspection of ears and nose: Normal. Oropharynx: Normal with no erythema, edema, exudate or lesions. Pulmonary See HPI.. Cardiovascular Auscultation of heart: Normal rate and rhythm, normal S1 and S2, without murmurs. Examination of extremities for edema and/or varicosities: Normal. Abdomen Abdomen: Non-tender, no masses. Lymphatic Palpation of lymph nodes in neck: No lymphadenopathy. Musculoskeletal Gait and station: Normal. Inspection/palpation of joints, bones, and muscles: Normal. Skin Skin and subcutaneous tissue: Normal without rashes or lesions. Neurologic Cranial nerves: Cranial nerves 2-12 intact. Reflexes: 2+ and symmetric. Psychiatric Orientation to person, place, and time: Normal. Mood and affect: Normal. Results/Data XR CHEST 2 VIEW ( Routine ) 24May2018 10:09AM Jaspreet Madsen Test Name Result Flag Reference XR CHEST 2 VIEW (Report) HANS PASCUAL ADMIT/SERVICE DATE: 05/24/18 ACCT: [id number] DISCHARGE DATE: : 1965 SEX: F ORD SITE: [facility] PT TYPE: REG CLI ORDERING MD: JASPREET MADSEN MD STUDY DATE REPORT # ORDER # EXT ORDER ID 05/24/18 [id number] PROC CODE: CXR2V PROCEDURE DESCRIPTION: XR CHEST 2 VIEW IMAGING STUDIES: XR CHEST 2 VIEW DATE: 05/24/2018 9:39 AM CLINICAL HISTORY: OTHER - ACUTE BRONCHITIS . SYMPTOMS FOR 3 WEEKS COMPARISON: NO COMPARISONS. CONCLUSION: 1. NO EVIDENCE OF ACUTE CARDIOPULMONARY DISEASE. 2. NO EVIDENCE OF PLEURAL EFFUSION OR PNEUMOTHORAX. NO CHF. 3. NORMAL HEART SIZE. POSSIBLE MILD ATHEROSCLEROTIC AORTA. MINIMAL DEGENERATIVE CHANGE IN THORACIC SPINE.. ELECTRONICALLY SIGNED BY Esau BROOKE MD ON 05/24/2018 10:10 AM Assessment 1. BMI 26.0-26.9,adult (V85.22) (Z68.26) 2. Allergic rhinitis (477.9) (J30.9) Plan Allergic rhinitis 1. ProAir RespiClick 108 (90 Base) MCG/ACT Inhalation Aerosol Powder Breath Activated; INHALE 2 PUFFS 4 times daily PRN Rx By: Jaspreet Madsen; Dispense: 0 Days ; #:1 Inhaler; Refill: 2; For: Allergic rhinitis; EMA = N; Verified Transmission to [facility]; Last Updated By: Summit Wine Tastings; 05/26/2018 2:41:46 PM Cough in adult 2. Symbicort 80-4.5 MCG/ACT Inhalation Aerosol; INHALE 2 PUFFS TWICE DAILY - RINSE MOUTH AFTER USE Rx By: Jaspreet Madsen; Dispense: 0 Days ; #:1 X 10.2 GM Inhaler; Refill: 2; For: Cough in adult; EMA = N; Verified Transmission to [facility]; Last Updated By: Summit Wine Tastings; 05/26/2018 2:41:45 PM Discussion/Summary Initially, thought rhinitis, seasonal allergies, so she will continue with those medications as shestill has a little bit of nasal congestion. Encouraged her to get amvj-uxr-jgtubvo Nasonex or Flonase. Continue the singular and she is going to be going to [place] to visit one of her kids again. Isent her a prescription of rescue inhaler because she was very stressed out the last time she had br onchospasm and then I encouraged her to refill the Symbicort also to keep it on hand. I will see her whenever. She is really not my patient but she has been coming from the last 2 to 3 times because of the issues that recently she has been suffering. Signatures Electronically signed by : Jaspreet Madsen M.D.; May 28 2018 2:44PM CEILING INSULATION BLOWER (Author) documented in this encounter Plan of Treatment Upcoming Encounters Date Type Department Care Team (Late st Contact Info) Description 11/14/2024 8:00 AM CEILING INSULATION BLOWER Office Visit [facility] - [facility] 3 [facility], [address] [facility] [place] [address] Montserrat Oliver NP 3 [facility] [address] [place] [address] 12/06/2024 9:30 AM CEILING INSULATION BLOWER Appointment [facility] Open MRI [address] [place] [address] [place] [address] [address] [place] [address] 03/02/2025 3:20 PM CDT Office Visit [facility] & Internal Medicine - [address] [phone] [place] [address] [address] [place] [address] documented as of this encounter Visit Diagnoses Not on filedocumented in this encounter
--- OUTSIDE RECORDS SUMMARY | 2024-11-13 17:14 | XMS_ITS | Encounter Summary ---
Author Organization [facility] Address [address] [place] [address]. [place] [address] [place] [address] Care Team Providers Care Human Performance Technologist Name Role Phone Unavailable Primary Care Provider Unavailabl e Encounter Details Date Type Department Care Team (Latest Contact Info) Description 03/21/2018 Abstract [facility] Social History Tobacco Use Types Packs/Day Years Used Date Smoking Tobacco: Never Assessed Comments Unknown Sex and Gender Information Value Date Recorded Sex Assigned at Not on file Legal Sex Female 8:16 PM CDT Gender Identity Not on file Sexual Orientation Not on file documented as of this encounter Progress Notes * Jes Reid NP - 03/21/2018 8:20 AM CDT Message please notify Hans that her throat culture was negative. thanks. denise Verified Results Group A Streptococcus Culture [id number] 01:45PM Jes Reid Test Name Result Flag Reference Group A Streptococcus Culture SPECIMEN DESCRIPTION - THROAT SPECIAL REQUESTS - NO SPECIAL REQUEST CULTURE - NO STREPTOCOCCUS PYOGENES (GROUP A) ISOLATED REPORT STATUS - FINAL 03/20/2018 documented in this encounter Plan of Treatment Upcoming Encounters Date Type Department Care Team (Late st Contact Info) Description 11/14/2024 8:00 AM MANAGER SECONDARY Office Visit [facility] Multispecialty Care - [facility] 3 [facility], [address] [place] [phone] Montserrat Oliver NP 3 [facility] [address] [place] [address] 12/06/2024 9:30 AM MANAGER SECONDARY Appointment [facility] [address] [facility] [address] [place] [address] [address] [place], [place] [phone] 03/02/2025 3:20 PM CDT Office Visit [facility] Family & Internal Medicine - [place] [phone] [place] [address] [place] [address] [facility] [address] [place] [address] documented as of this encounter Visit Diagnoses Not on filedocumented in this encounter
--- OUTSIDE RECORDS SUMMARY | 2024-11-13 17:14 | XMS_ITS | Encounter Summary ---
Author Organization [facility] Address [address] [place] [address]. [place], [place] [address] [place] [address] Care Team Providers Care Pipe Blanks Cut Off Saw Operator Name Role Phone Unavailable Primary Care Provider Unavailabl e Encounter Details Date Type Department Care Team (Latest Contact Info) Description 05/23/[address] [facility] Social History Tobacco Use Types Packs/Day Years Used Date Smoking Tobacco: Never Assessed Comments Unknown Sex and Gender Information Value Date Recorded Sex Assigned at Not on file Legal Sex Female 8:16 PM CDT Gender Identity Not on file Sexual Orientation Not on file documented as of this encounter Progress Notes * Generic Conversion MD Jerrod - 05/23/2018 2:42 PM CDT Message Recorded as Task Date: 05/23/2018 11:10 AM, Created By: Argelia Chan Task Name: Call Back Assigned To: [facility] Dae Nurse Team Regarding Patient: Hans Pascual, Status: In Progress Comment: Argelia Chan - 23 May 2018 11:10 AM TASK CREATED Patient called and she said her Division Order Technician @ [facility] (Dr. Perez Cervantes) would like for her to have aCXR, and would like Dr. Mcnally to order. Because of her bronchitis. Patient states she is better, somewheezing. Has not taken her Embrel since 04/25/18l or methrotrexate since 05/04/18 and the thread winder automatic does not want her to take until a CXR is done. [phone] to reach Letha. Montserrat Weber - 23 May 2018 11:45 AM TASK EDITED printed to discuss w/ Montserrat Hodges - 23 May 2018 2:42 PM TASK EDITED okay per Dr. Mcnally to order, order placed, pt. informed, v/u Signatures Electronically signed by : Montserrat Weber, ; May 23 2018 2:43PM RESIDENTIAL ROOFER HELPER (Author) documented in this encounter Plan of Treatment Upcoming Encounters Date Type Department Care Team (Late st Contact Info) Description 11/14/2024 8:00 AM RESIDENTIAL ROOFER HELPER Office Visit [facility] Multispecialty Care - [facility] 3 [facility], [address] [place] [phone] Montserrat Oliver NP 3 [facility] [address] [place] [address] 12/06/2024 9:30 AM RESIDENTIAL ROOFER HELPER Appointment [facility] Open MRI [address] [place] [address] [place] [address] [facility]. [address] [place] [phone] 03/02/2025 3:20 PM CDT Office Visit [facility] Family & Internal Medicine - [address] [phone] [place] [address] [place] [address] documented as of this encounter Procedures Procedure Name Priority Date/Time Associated Diagnosis Comments XR CHEST 2V+NIPPLE MARKER Routine 05/24/2018 10:09 AM CDT documented in this encounter Results * XR CHEST 2V+NIPPLE MARKER (05/24/2018 10:09 AM CDT) Anatomical Region Laterality Modality Chest Radiographic Corin ging 05/24/2018 10:0 9 AM CDT 05/24/2018 10:09 AM CDT Narrative 05/24/2018 10:13 AM CDT HANS PASCUAL ? ADMIT/SERVICE DATE: 05/24/18 ?? ACCT: [id number] ?DISCHARGE DATE: ?? : 1965 ??SEX: F ?ORD SITE: [facility] ?? PT TYPE: REG CLI ? ORDERING MD: JASPREET MADSEN MD ? STUDY DATE ? REPORT # ?ORDER # ? EXT ORDER ID ?? 05/24/18 ? [id number] ? [id number] ?[id number] ? PROC CODE: ? CXR2V ? PROCEDURE DESCRIPTION: ?? XR CHEST 2 VIEW ? IMAGING STUDIES: XR CHEST 2 VIEW ? DATE: 05/24/2018 9:39 AM ? CLINICAL HISTORY: OTHER - ACUTE BRONCHITIS ??. ??SYMPTOMS FOR 3 WEEKS ? COMPARISON: NO COMPARISONS. ? CONCLUSION: ? 1. ??NO EVIDENCE OF ACUTE CARDIOPULMONARY DISEASE. ? 2. ??NO EVIDENCE OF PLEURAL EFFUSION OR PNEUMOTHORAX. NO CHF. ? 3. ??NORMAL HEART SIZE. POSSIBLE MILD ATHEROSCLEROTIC AORTA. MINIMAL DEGENERATIVE CHANGE IN THORACIC SPINE.. ? ELECTRONICALLY SIGNED BY Esau BROOKE MD ON 05/24/2018 10:10 AM ? Procedure Note Kings Elder MD - 09/07/2018 HANS PASCUAL ADMIT/SERVICE DATE:05/24/18 ACCT: [id number] DISCHARGE DATE: : 1965 SEX: F ORD SITE: [facility] PT TYPE: REG CLI ORDERING MD:JASPREET MADSEN MD STUDY DATE REPORT # ORDER # EXT ORDER ID 05/24/18 [id number] PROC CODE: CXR2V PROCEDURE DESCRIPTION: XR CHEST 2 VIEW IMAGING STUDIES: XR CHEST 2 VIEW DATE: 05/24/2018 9:39 AM CLINICAL HISTORY: OTHER - ACUTE BRONCHITIS . SYMPTOMS FOR 3 WEEKS COMPARISON: NO COMPARISONS. CONCLUSION: 1. NO EVIDENCE OF ACUTE CARDIOPULMONARY DISEASE. 2. NO EVIDENCE OF PLEURAL EFFUSION OR PNEUMOTHORAX. NO CHF. 3. NORMAL HEART SIZE. POSSIBLE MILD ATHEROSCLEROTIC AORTA. MINIMALDEGENERATIVE CHANGE IN THORACIC SPINE.. ELECTRONICALLY SIGNED BY Esau BROOKE MD ON 05/24/2018 10:10 AM Jaspreet Madsen MD GENERAL IMAGING Final Re sult documented in this encounter Visit Diagnoses Not on filedocumented in this encounter
--- OUTSIDE RECORDS SUMMARY | 2024-11-13 17:14 | XMS_ITS | Encounter Summary ---
Author Organization [facility] Address [address] [place] [address]. [place] [address] [place] [address] Care Team Providers Care Recruitment Internship Name Role Phone Jaspreet Pearl MD Primary Care Provider Felipe juan carlos Encounter Details Date Type Department Care Team (Late st Contact Info) Description 05/24/2018 Abstract [facility] Imaging [address] [place] [address] Jaspreet Pearl MD Social History Tobacco Use [...] st Contact Info) Description 11/14/2024 8:00 AM REINFORCING STEEL WORKER Office Visit [facility] Multispecialty Care - [facility] 3 [facility], [address] [place] [address] Montserrat Oliver NP 3 [facility] [address] [place] [address] 12/06/2024 9:30 AM REINFORCING STEEL WORKER Appointment [facility] Open MRI [address] [place] [address] [place] [address] [address] [place] [phone] 03/02/2025 3:20 PM CDT Office Visit [facility] Medical Group Family & Internal Medicine - [address] [phone] [place] [address] [address] [place] [address] documented as of this encounter Visit Diagnoses Diagnosis Acute bronchitis documented in this encounter Care Teams Recruitment Internship Relationship Specialty Start Date End Date Jaspreet Pearl MD PCP - General INTERNAL MEDICINE 11/30/18 02/18/23 documented as of this encounter
--- OUTSIDE RECORDS SUMMARY | 2024-11-13 17:14 | XMS_ITS | Encounter Summary ---
Author Organization [facility] Address [address] [place] [address]. [place] [address] [place] [address] Care Team Providers Care Department Supervisor Name Role Phone Unavailable Primary Care Provider Unavailabl e Encounter Details Date Type Department Care Team (Latest Contact Info) Description 08/08/2018 Scan [facility] Medical [facility] Jaspreet Pearl MD Social History Tobacco Use [...] st Contact Info) Description 11/14/2024 8:00 AM AGENT BROKER Office Visit [facility] Multispecialty Care - [facility] 3 [facility], [address] [place] [address] Montserrat Oliver NP 3 [facility] [address] [place] [address] 12/06/2024 9:30 AM AGENT BROKER Appointment [facility] Open MRI [address] [facility] [place] [address] [place] [address] [address] [place] [phone] 03/02/2025 3:20 PM CDT Office Visit [facility] Medical Group Family & Internal Medicine - [place] [address] [place] [address] [place] [address] [facility]. [address] [place] [address] documented as of this encounter Visit Diagnoses Not on filedocumented in this encounter
--- OUTSIDE RECORDS SUMMARY | 2024-11-13 17:14 | XMS_ITS | Encounter Summary ---
Author Organization [facility] Address [address] [place] [address]. [place], [place] [phone] [place] [address] Care Team Providers Care Premium Representative Name Role Phone Jaspreet Pearl MD Primary Care Provider Felipe archerelijah Encounter Details Date Type Department Care Team (Late st Contact Info) Description 01/12/2019 Orders Only [facility] [place] [facility] Family & Internal Medicine [address] [phone] Montserrat Weber, JOSSUE Social History Tobacco Use Types Packs/Day Years [...] Master's degree (e.g., MA, MS, Howard, MEd, IT SENIOR SOFTWARE ENGINEER JAVA, KEKE) 12/21/2018 Comments No Sex and Gender [...] st Contact Info) Description 11/14/2024 8:00 AM CHECKERING MACHINE OPERATOR Office Visit [facility] [place] [facility] Multispecialty Care - [facility] 3 [facility], [address] [place] [address] Montserrat Oliver, DOREEN 3 [facility] [address] [place] [address] 12/06/2024 9:30 AM CHECKERING MACHINE OPERATOR Appointment [facility] Open MRI [address] [facility] [place] [address] [place] [address] [place], [place] [phone] 03/02/2025 3:20 PM CDT Office Visit [facility] [place] [facility] Family & Internal Medicine - [address] [phone] [place] [address] [place] [address] documented as of this encounter Visit Diagnoses Diagnosis Anxiety Anxiety state, unspecified documented in this encounter Care Teams Premium Representative Relationship Specialty Start Date End Date Jaspreet Pearl MD PCP - General INTERNAL MEDICINE 11/30/18 02/18/23 documented as of this encounter
--- OUTSIDE RECORDS SUMMARY | 2024-11-13 17:14 | XMS_ITS | Encounter Summary ---
Author Organization [facility] Address [address] [place] [address]. [place], [place] [address] [place] [address] Care Team Providers Care Licensed Mental Health Counselor Name Role Phone Unavailable Primary Care Provider Unavailabl e Encounter Details Date Type Department Care Team (Latest Contact Info) Description 08/29/2018 Abstract [facility] , Generic Conversion, Social History Tobacco Use Types Packs/Day Years Used Date Smoking Tobacco: Never Assessed Comments Unknown Sex and Gender Information Value Date Recorded Sex Assigned at Not on file Legal Sex Female 8:16 PM CDT Gender Identity Not on file Sexual Orientation Not on file documented as of this encounter Progress Notes * Generic Conversion MD Jerrod - 08/29/2018 2:07 PM CDT Message Recorded as Task Date: 08/26/2018 11:01 AM, Created By: Montserrat Weber Task Name: Call Back Assigned To: [facility] Dae Nurse Team Regarding Patient: Hans Pascual, Status: In Progress Comment: Montserrat Weber - 26 Aug 2018 11:01 AM TASK CREATED lmtcb, received fax requesting to d/c symbicort, needed to discuss with pt. Montserrat Weber - 26 Aug 2018 11:02 AM TASK IN PROGRESS Umer Joyce - 26 Aug 2018 12:04 PM TASK EDITED pt states she already has been notified of this medication being d/c. Pt isn't sure why she was called again regarding this matter. Pt states she has not taken the Symbicort since she was notified the first time. Montserrat Weber - 29 Aug 2018 2:04 PM TASK EDITED printed for Montserrat Hodges - 29 Aug 2018 2:07 PM TASK EDITED okay well we received another request from pharmacy that is why she was contacted again and the medis still on her medication list. Plan 1. Symbicort 80-4.5 MCG/ACT Inhalation Aerosol Rx By: Jaspreet Pearl; Dispense: 0 Days ; #:1 X 10.2 GM Inhaler; Refill: 2; For: Cough in adult; EMA = N; Sent To: Scope 5; Last Updated By: Montserrat Weber; 08/29/2018 2:07:36 PM Signatures Electronically signed by : Montserrat Weber, ; Aug 29 2018 2:08PM TRIMMER HAND (Author) documented in this encounter Plan of Treatment Upcoming Encounters Date Type Department Care Team (Late st Contact Info) Description 11/14/2024 8:00 AM TRIMMER HAND Office Visit [facility] Multispecialty Care - [facility] 3 [facility], [address] [place] [phone] Montserrat Oliver NP 3 [facility] [address] [place] [address] 12/06/2024 9:30 AM TRIMMER HAND Appointment [facility] MRI [address] [place] [address] [place] [address] [facility]. [address] [place] [address] 03/02/2025 3:20 PM CDT Office Visit [facility] Family & Internal Medicine - [address] [phone] [place] [address] [facility]. [address] [place] [address] documented as of this encounter Visit Diagnoses Not on filedocumented in this encounter
--- OUTSIDE RECORDS SUMMARY | 2024-11-13 17:14 | XMS_ITS | Encounter Summary ---
Author Organization [facility] Address [address] [place] [address]. [place] [address] [place] [address] Care Team Providers Care Refining Supervisor Name Role Phone Jaspreet Pearl MD Primary Care Provider Felipe rangel Encounter Details Date Type Department Care Team (Latest Contact Info) Description 02/27/2019 Scan [facility] Scanned, Documents Social [...] Master's degree (e.g., MA, MS, Howard, MEd, RECONCILER, KEKE) 12/21/2018 Comments No Sex and Gender [...] (Late Contact Info) Description 11/14/2024 8:00 AM BORING MILL SET UP OPERATOR Office Visit [facility] Multispecialty Care - [facility] 3 [facility], [address] [place] [address] Montserrat Oliver, ACTING TEACHER [address] [facility] [address] [place] [address] 12/06/2024 9:30 AM BORING MILL SET UP OPERATOR Appointment [facility] Open MRI [address] [facility] [place] [address] [place] [address] [place] [address] 03/02/2025 3:20 PM CDT Office Visit [facility] Medical Group Family & Internal Medicine - [address] [address] [place] [address] [place] [address] documented as of this encounter Visit Diagnoses Not on filedocumented in this encounter Care Teams Refining Supervisor Relationship Specialty Start Date End Date Jaspreet Pearl MD PCP - General INTERNAL MEDICINE 11/30/18 02/18/23 documented as of this encounter
--- OUTSIDE RECORDS SUMMARY | 2024-11-13 17:14 | XMS_ITS | Encounter Summary ---
Author Organization [facility] Address [address] [place] [address]. [place], [place] [address] [place] [address] Care Team Providers Care Test Baker Name Role Phone Jaspreet Madsen MD Primary Care Provider U juan carlos Reason for Visit * Reason Comments Follow Up anxiety. she didn't take the meds that Dr. Solares gave her. Encounter Details Date Type Department Care Team (Late st Contact Info) Description 12/21/2018 4:00 PM MILIEU COORDINATOR Office Visit [facility] Medical Group Family & Internal Medicine [address] [address] Jaspreet Madsen MD Follow Up (anxiety. she didn't take the meds that Dr. Solares gave her. ) Social History Tobacco Use Types Packs/Day [...] Master's degree (e.g., MA, MS, Howard, MEd, HEADER SET UP OPERATOR, KEKE) 12/21/2018 Comments No Sex and [...] Sign Reading Time Taken Comments Blood Pressure 120/70 12/21/2018 4:03 PM MILIEU COORDINATOR Pulse 67 12/21/2018 4:03 PM MILIEU COORDINATOR Temperature 36.7 ??C (98.1 ??F) 12/21/2018 4:03 PM CS T Respiratory Rate 18 12/21/2018 4:03 PM MILIEU COORDINATOR Oxygen Saturation 98% 12/21/2018 4:03 PM MILIEU COORDINATOR Inhaled Oxygen Concentration - - Weight 77.1 kg (170 lb) 12/21/2018 4:03 PM MILIEU COORDINATOR Height 172.7 cm (5' 8 ) 12/21/2018 4:03 PM MILIEU COORDINATOR Body Mass Index 25.85 12/21/2018 4:03 PM MILIEU COORDINATOR documented in this encounter Progress Notes * Jaspreet Madsen MD - 12/21/2018 4:00 PM CST Reason for Visit: Follow Up (anxiety. she didn't take the meds that Dr. Solares gave her. ) Filed Vitals: 12/21/18 1603 BP: 120/70 Pulse: 67 Resp: 18 Temp: 98.1 ??F (36.7 ??C) SpO2: 98% Weight: 77.1 kg (170 lb) Height: 5' 8 (1.727 m) Body mass index is 25.85 kg/m??. History of Present Illness: HPI okay this patient is Letha very pleasant lady with issues with anxiety irritable bowel syndrome some type of asthma she has been doing very well but recently had a bad experience as she lost herthat after fighting a liver issue and when she had a liver transplant and eventually had a massive stroke after the surgery he was getting ready to go home, now her mother is moving from [facility] to live close to her in [place] that would be good for her but she is afraid that she is goingto lose her mother there is no real reason for that is just anxiety and concerns so today she is looking for something to help her to relax and deal with the situation. ROS: Review of Systems Constitutional: Negative. HENT: Negative. Eyes: Negative. Respiratory: Negative. Cardiovascular: Negative. Gastrointestinal: Positive for abdominal pain, constipation and diarrhea. Genitourinary: Negative. Musculoskeletal: Negative. Skin: Negative. Neurological: Negative. Psychiatric/Behavioral: Positive for depression. Negative for hallucinations, memory loss, substance abuse and suicidal ideas. The patient is nervous/anxious and has insomnia. Medications: Current Outpatient Medications: ??? Albuterol Sulfate (PROAIR RESPICLICK) 108 (90 Base) MCG/ACT AEROSOL POWDER, BREATH ACTIVATED, Inhale 2 puffs into the lungs 4 (four) times daily as needed., Disp: , Rfl: ??? buPROPion 75 MG tablet, Take 1 tablet (75 mg total) by mouth 2 (two) times daily., Disp: 60 tablet, Rfl: 0 ??? conjugated estrogens 0.625 MG/GM vaginal cream, Place 0.5 g vaginally twice a week., Disp: , Rfl: ??? FBM-HNV-Jubqyck E (OMEGA-3 COMPLEX) 192-251-11 MG-MG-UNIT Cap, Take [...] tablet by mouth daily., Disp: , Rfl: Allergies [...] Master's degree (e.g., MA, MS, Howard, MEd, HEADER SET UP OPERATOR, KEKE) Social Needs ??? Financial resource strain: Not on file ??? Food insecurity - worry: Not on file ??? Food insecurity - inability: Not on file ??? Transportation needs - medical: Not on file ??? Transportation needs - non-medical: Not on file Occupational History ??? 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 Smoking status: Former Smoker Packs/day: 0.25 Years: 4.00 Pack years: 1.00 Types: Cigarettes Last attempt to quit: 1989 Years since quittin.1 ??? Smokeless tobacco: Never [...] is normal. Judgment and thought contentnormal. She definitely looks anxious and little sad about her father of course understandable she was teary. So we had a discussion of the issues the normal responses and grieving etc. Nursing note and vitals reviewed. Assessment Encounter Diagnose(s) ICD-10-CM ICD-9-CM SNOMED CT(R) 1. Anxiety F41.9 300.00 ANXIETY buPROPion 75 MG tablet 2. Irritable bowel syndrome with both constipation and diarrhea K58.2 564.1 IRRITABLE BOWEL SYNDROME dicyclomine 20 MG tablet 3. Polyarthritis M13.0 716.50 POLYARTHROPATHY 4. DURAN (generalized anxiety disorder) F41.1 300.02 GENERALIZED ANXIETY DISORDER Plan Orders Placed This Encounter ??? buPROPion 75 MG tablet ??? dicyclomine 20 MG tablet At this time I would like to propose to use Wellbutrin to help her in the past many years ago she had depression and she try SSRIs with severe side effects of no libido whatsoever that affected her life at that point so she does not want to go through that again so this time we are goingto try Wellbutrin she will be willing to try that L would like to see her back in 1 month she also w ill be using a little bit of Xanax low-dose as needed she is doing what ever she can to improve exercising and eating healthier etc. she also has been fasting and that really helped her before her father he was doing very well so that is what we have I will see her back in a month and we go from there I think she would do well she went to bring me her her mother for me to take care of her whe n she comes to town that will be fine Follow up FU 1 MONTH JASPREET MADSEN MD 12/21/2018 4:50 PM EU COORDINATOR documented in this encounter Plan of Treatment Upcoming Encounters Date Type Department Care Team (Late st Contact Info) Description 11/14/2024 8:00 AM MILIEU COORDINATOR Office Visit [facility] Multispecialty Care - [address], [address] [place] [phone] Montserrat Oliver NP [address] [place] [address] [place] [address] 12/06/2024 9:30 AM MILIEU COORDINATOR Appointment [facility] Open MRI [address] [place] [address] [place] [address] [facility] [place] [phone] 03/02/2025 3:20 PM CDT Office Visit [facility] Family & Internal Medicine - [address] [phone] [place] [address] [facility] [employer]. [address] [place] [phone] documented as of this encounter Visit Diagnoses Diagnosis DURAN (generalized anxiety disorder)- Primary Generalized anxiety disorder Anxiety Anxiety state, unspecified Irritable bowel syndrome with both constipation and diarrhea Polyarthritis Unspecified polyarthropathy or polyarthritis, site unspecified documented in this encounter Care Teams Test Baker Relationship Specialty Start Date End Date Jaspreet Madsen MD PCP - General INTERNAL MEDICINE 11/30/18 02/18/23 documented as of this encounter
--- OUTSIDE RECORDS SUMMARY | 2024-11-13 17:14 | XMS_ITS | Encounter Summary ---
Author Organization [facility] Address [address] [place] [address]. [place] [address] [place] [address] Care Team Providers Care Wharf Tender Head Name Role Phone Unavailable Primary Care Provider Unavailabl e Encounter Details Date Type Department Care Team (Latest Contact Info) Description 09/20/2018 Scan [facility] Medical Group , [place] [...] st Contact Info) Description 11/14/2024 8:00 AM LAYER OUT PLATE GLASS Office Visit [facility] Multispecialty Care - [facility] 3 [facility], [address] [place] [phone] Montserrat Oliver NP 3 [facility] [address] [place] [address] 12/06/2024 9:30 AM LAYER OUT PLATE GLASS Appointment [facility] Open MRI [address] [place] [address] [place] [address] [address] [place] [address] 03/02/2025 3:20 PM CDT Office Visit [facility] Medical Group Family & Internal Medicine - [place] [address] [place] [address] [place] [address] [facility]. [address] [place] [address] documented as of this encounter Visit Diagnoses Not on filedocumented in this encounter
--- OUTSIDE RECORDS SUMMARY | 2024-11-13 17:14 | XMS_ITS | Encounter Summary ---
Author Organization [facility] Address [address] [place] [address]. [place], [place] [address] [place] [address] Care Team Providers Care Clay Structure Builder And Servicer Name Role Phone Jaspreet Pearl MD Primary Care Provider Felipe archerelijah Encounter Details Date Type Department Care Team (Late st Contact Info) Description 01/12/2019 Orders Only [facility] Family & Internal Medicine [address] [address] Montserrat Weber, JOSSUE Social History [...] Master's degree (e.g., MA, MS, Howard, MEd, AUDIOLOGIST, KEKE) 12/21/2018 Comments No Sex and Gender [...] st Contact Info) Description 11/14/2024 8:00 AM GASOLINE CATALYST OPERATOR Office Visit [facility] Multispecialty Care - [facility] [address] [facility], [address] [place] [address] Montserrat Oliver, DOREEN [address] [facility] [address] [place] [address] 12/06/2024 9:30 AM GASOLINE CATALYST OPERATOR Appointment [facility] Open MRI [address] [place] [address] [place] [address] [place] [address] 03/02/2025 3:20 PM CDT Office Visit [facility] Family & Internal Medicine - [address] [address] [place] [address] [place] [address] documented as of this encounter Visit Diagnoses Diagnosis Seasonal allergies Allergic rhinitis, cause unspecified documented in this encounter Care Teams Clay Structure Builder And Servicer Relationship Specialty Start Date End Date Jaspreet Pearl MD PCP - General INTERNAL MEDICINE 11/30/18 02/18/23 documented as of this encounter
--- OUTSIDE RECORDS SUMMARY | 2024-11-13 17:14 | XMS_ITS | Encounter Summary ---
Author Organization [facility] Address [address] [place] [address]. [place], [place] [address] [place] [address] Care Team Providers Care Rn Diabetes Name Role Phone Unavailable Primary Care Provider Unavailabl e Encounter Details Date Type Department Care Team (Latest Contact Info) Description 07/01/2018 Abstract [facility] , Kings Nunez [...] Notes * Kings Nunez Md, MD - 07/01/2018 11:06 AM CDT Message Recorded as Task Date: 07/01/2018 10:21 AM, Created By: Montserrat Weber Task Name: Call Back Assigned To: [facility] Dae Nurse Team Regarding Patient: Hans Pascual, Status: In Progress Comment: Montserrat Weber - 01 Jul 2018 10:21 AM TASK CREATED lmtcb, need to discuss symbicort Montserrat Weber - 01 Jul 2018 10:28 AM TASK IN PROGRESS Montserrat Weber - 01 Jul 2018 11:06 AM TASK EDITED discussed symbicort will d/c and if pt. starts to have respiratory symptoms will contact the officeto discuss restarting Signatures Electronically signed by : Montserrat Weber, ; Jul 01 2018 11:06AM TRANSPLANT SURGEON (Author) documented in this encounter Plan of Treatment Upcoming Encounters Date Type Department Care Team (Late st Contact Info) Description 11/14/2024 8:00 AM TRANSPLANT SURGEON Office Visit [facility] Multispecialty Care - [facility] [address] [facility], [address] [facility] [place] [address] Montserrat Oliver NP [address] [facility] [address] [place] [address] 12/06/2024 9:30 AM TRANSPLANT SURGEON Appointment [facility] Open MRI [address] [place] [address] [place] [address] [address] [place] [id number] 03/02/2025 3:20 PM CDT Office Visit [facility] Family & Internal Medicine - [address] [phone] [place] [address] [address] [place] [address] documented as of this encounter Visit Diagnoses Not on filedocumented in this encounter
--- OUTSIDE RECORDS SUMMARY | 2024-11-13 17:14 | XMS_ITS | Encounter Summary ---
Author Organization [facility] Address [address] [place] [address]. [place], [place] [address] [place] [address] Care Team Providers Care Pathology Assistant Name Role Phone Jaspreet Pearl MD Primary Care Provider Felipe rangel Reason for Visit * Reason Comments Anxiety has experienced some increased anxiety over the past few months, lost her Dad suddenly on 10/19/18 and wants to discuss getting on something or talk to a counsilor Sinus Problem also has some anxiet y about getting sick like she did last summer, had continuous bronchitits all summer and is wondering if that is not happening again, not sleeping at night Encounter Details Date Type Department Care Team (Late st Contact Info) Description 11/30/2018 3:40 PM MANAGER OF QUALITY Office Visit [facility] Family & Internal Medicine [address] [address] Jazmín Baldwin MD Anxiety (has experienced some increased anxiety over the past few months, lost her Dad suddenly on 10/19/18 and wants to discuss getting on something or talk to a counsilor ); Sinus Problem (also has some anxiety about getting sick like she did last summer, had continuous bronchitits all summer and is wondering if that is not happening again, not sleeping at night ) Social History Tobacco Use Types Packs/Day Years Used Date Smoking Tobacco: Former Smokeless Tobacco: Never Alcohol Use Standard Drinks/Week [...] Sign Reading Time Taken Comments Blood Pressure 118/68 11/30/2018 3:48 PM MANAGER OF QUALITY Pulse 70 11/30/2018 3:48 PM MANAGER OF QUALITY Temperature 36.7 ??C (98 ??F) 11/30/2018 3:48 PM MANAGER OF QUALITY Respiratory Rate 22 11/30/2018 3:48 PM MANAGER OF QUALITY Oxygen Saturation 97% 11/30/2018 3:48 PM MANAGER OF QUALITY Inhaled Oxygen Concentration - - Weight 77.1 kg (170 lb) 11/30/2018 3:48 PM MANAGER OF QUALITY Height - - Body Mass Index 26.63 05/26/2018 2:08 PM CDT documented in this encounter Patient Instructions * Patient Instructions* Jazmín Baldwin MD - 11/30/2018 3:40 PM MANAGER OF QUALITY [facility] GER OF QUALITY documented in this encounter Progress Notes * Jazmín Baldwin MD - 11/30/2018 4:44 PM CSTAssociated Problem(s): DURAN (generalized anxiety disorder) Discussed starting a SSRI or SNRI and very anxious about the side effects. Discussed buspar and is willing to try that. Would also like to try talking with a therapist GER OF QUALITY * Jazmín Baldwin MD - 11/30/2018 3:40 PM CST Images from the original note were not included. Reason for Visit: Anxiety (has experienced some increased anxiety over the past few months, lost her Dad suddenly on 10/19/18 and wants to discuss getting on something or talk to a counsilor ) and Sinus Problem (also has some anxiety about getting sick like she did last summer, had continuous bronchitits all summer and is wondering if that is not happening again, not sleeping at night ) History of Present Illness: Here for acute visit for anxiety Has been going on for a few months worse lately having some trouble sleeping, thoughts racing. She gets panic attacks. She is very anxious about starting new medications especially ones that could cause her to gain weight or have lowered labido. Her father recently and that has seemed to make things worse Was on zoloft before. Did not like how she felt on that. Cymbalta made her nauseated. Gets severe dread/ feeling of doom ROS: Review of Systems Constitutional: Positive for malaise/fatigue. Negative for chills and fever. HENT: Positive for sore throat. Respiratory: Negative for cough and shortness of breath. Cardiovascular: Negative for chest pain and leg swelling. Gastrointestinal: Negative for abdominal pain, constipation, diarrhea and nausea. Neurological: Negative for dizziness. Psychiatric/Behavioral: Negative for depression, memory loss and suicidal ideas. The patient is nervous/anxious and has insomnia. Medications: Current Outpatient Medications: ??? Albuterol Sulfate (PROAIR RESPICLICK) 108 (90 Base) MCG/ACT AEROSOL POWDER, BREATH ACTIVATED, Inhale 2 puffs into the lungs 4 (four) times daily as needed., Disp: , Rfl: ??? ALPRAZolam 0.25 MG tablet, Take 1 tablet by mouth daily., Disp: , Rfl: ??? busPIRone 15 MG tablet, Take 1 tablet (15 mg total) by mouth 2 (two) times daily., Disp: 60 tablet, Rfl: 1 ??? conjugated estrogens 0.625 MG/GM vaginal cream, Place 0.5 g vaginally twice a week., Disp: , Rfl: ??? JVA-WVF-Gttabdb E (OMEGA-3 COMPLEX) 192-251-11 MG-MG-UNIT Cap, Take 1 capsule by mouth daily., Disp: , Rfl: ??? etanercept (ENBREL) 50 [...] daily as needed., Disp: , Rfl: ??? [place] 3 1200 MG Cap, Take 1,200 mg by mouth., Disp: , Rfl: Allergies Allergen Reactions ??? Levofloxacin Hallucinations, Nausea Only, Nausea and Vomiting and Other (see comment) hallucinations History reviewed. No pertinent past medical history. Past Surgical History: Procedure Laterality Date ??? CHOLECYSTECTOMY ??? LAMINECTOMY,LUMBAR ??? SEPTOPLASTY Social History Socioeconomic History ??? Marital status: Spouse name: Not on file ??? Number of children: Not on file ??? Years of education: Not on file ??? Highest education level: Not on file Social Needs ??? Financial resource strain: Not on file ??? Food insecurity - worry: Not on file ??? Food insecurity - inability: Not on file ??? Transportation needs - medical: Not on file ??? Transportation needs - non-medical: Not on file Occupational History ??? Not on file Tobacco Use ??? Smoking status: Former Smoker ??? Smokeless tobacco: Never Used Substance and Sexual Activity ??? Alcohol use: No Frequency: Never ??? Drug use: No ??? Sexual activity: Not on file Other Topics Concern ??? Not on file Social History Narrative ??? Not on file Family History Problem Relation Name Age of Onset ??? COPD Mother Family Status Relation Name Status ??? Mother (Not Specified) Filed Vitals: 11/30/18 1548 BP: 118/68 Pulse: 70 Resp: 22 Temp: 98 ??F (36.7 ??C) SpO2: 97% Weight: 77.1 kg (170 lb) Physical Exam Constitutional: She is oriented to person, place, and time. She appears well- developed and well-nourished. HENT: Head: Normocephalic and atraumatic. Eyes: Conjunctivae are normal. Pupils are equal, round, and reactive to light. Neck: No JVD present. Cardiovascular: Normal rate, regular rhythm and normal heart sounds. No murmur heard. Pulmonary/Chest: No respiratory distress. She has no wheezes. Abdominal: Soft. She exhibits no distension and no mass. There is no tenderness. There is no guarding. Musculoskeletal: She exhibits no edema or tenderness. Lymphadenopathy: She has no cervical adenopathy. Neurological: She is alert and oriented to person, place, and time. Psychiatric: Her behavior is normal. Her mood appears anxious. Assessment and Plan: DURAN (generalized anxiety disorder) Discussed starting a SSRI or SNRI and very anxious about the side effects. Discussed buspar and is willing to try that. Would also like to try talking with a therapist 1. DURAN (generalized anxiety disorder) busPIRone 15 MG tablet FU in 2-4 weeks with PCP Name given for therapist JAZMÍN BALDWIN MD GER OF QUALITY documented in this encounter Plan of Treatment Upcoming Encounters Date Type Department Care Team (Late st Contact Info) Description 11/14/2024 8:00 AM MANAGER OF QUALITY Office Visit [facility] Multis[facility]ialty [facility] - [facility] 3 [facility], [address] [place] [phone] Montserrat Oliver NP 3 [facility] [address] [place] [address] 12/06/2024 9:30 AM MANAGER OF QUALITY Appointment [facility] [address] [place] [address] [place] [address] [facility] [address] [place] [address] 03/02/2025 3:20 PM CDT Office Visit [facility] Family & Internal Medicine - [address] [phone] [place] [address] [facility] [employer]. [address] [place] [phone] documented as of this encounter Visit Diagnoses Diagnosis DURAN (generalized anxiety disorder)- Primary Generalized anxiety disorder documented in this encounter Care Teams Pathology Assistant Relationship Specialty Start Date End Date Jaspreet Pearl MD PCP - General INTERNAL MEDICINE 11/30/18 02/18/23 documented as of this encounter
--- OUTSIDE RECORDS SUMMARY | 2024-11-13 17:14 | XMS_ITS | Encounter Summary ---
Author Organization [facility] Address [address] [place] [address]. [place] [address] [place] [address] Care Team Providers Care Slabber Light Name Role Phone Unavailable Primary Care Provider Unavailabl e Encounter Details Date Type Department Care Team (Late st Contact Info) Description 04/29/2018 Abstract [facility] Family & Internal Medicine [address] [address] Jaspreet Pearl MD Social History [...] Sign Reading Time Taken Comments Blood Pressure 138/80 04/29/2018 7:59 AM CDT Pulse 101 04/29/2018 7:59 AM CDT Temperature - - Respiratory Rate - - Oxygen Saturation - - Inhaled Oxygen Concentration - - Weight 78.7 kg (173 lb 8 oz) 04/29/2018 7:59 AM CDT Height 170.2 cm (5' 7 ) 04/29/2018 7:59 AM CDT Body Mass Index 27.17 04/29/2018 7:59 AM CDT documented in this encounter Progress Notes * Jaspreet Pearl MD - 04/29/2018 8:00 AM CDT Chief Complaint still coughing at noc. onset- since March. tried several diff meds. has been on 2 rounds of antibiotics. Now she is on Amoxil 500mg bid for a dental implant. History of Present Illness A pleasant young lady with a history of rheumatoid arthritis. She had been treated for an upper respiratory infection in 2 occasions up to recent. She has been taking some amoxicillin from the dentist and she has this persistent inflammation with some posterior drainage, very clearly seen with typical characteristics of posterior drainage and she has bene coughing a lot, so I am going to give hersome different approach. First of all, no more antibiotics. She has 3 more days of amoxicillin. Shedid have an episode of cough during the visit here, and it was slightly yellowish but she is finishing the Augmentin, so I am not going to add any further antibiotics. She is taking a lot of medications. She has a history of rheumatoid arthritis, methotrexate, Enbrel, etc., mostly immunosuppressivemedications slightly, so I am not going to give her any more steroids or anything like that. Review of Systems See HPI for pertinent [...] skin lesions and no skin rash. Musculoskeletal: see HPI. Neurological: no confusion, no dizziness, no limb weakness and no difficulty walking. Psychiatric: no anxiety, no suicidal ideation and no depression. Active Problems 1. Amenorrhea (626.0) (N91.2) 2. Anxiety (300.00) (F41.9) 3. Arthritis (716.90) (M19.90) 4. Cough in adult (786.2) (R05) 5. Esophageal reflux (530.81) (K21.9) 6. Inflammatory arthritis (714.9) (M19.90) 7. Insomnia (780.52) (G47.00) 8. Irritable bowel syndrome (564.1) (K58.9) 9. Laryngitis (464.00) (J04.0) 10. Polyarthritis (716.50) (M13.0) 11. Sinusitis, acute (461.9) (J01.90) 12. Wears glasses (V49.89) (Z97.3) Past Medical History [...] No illicit drug use ?? 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 Dicyclomine HCl - 20 MG Oral Tablet; TAKE 1 TABLET BY MOUTH EVERY 6 HOURS NEEDED; Therapy: 63Vyp0075 to (Evaluate:23Ddi3243) Requested for: 28Feb2018; Last Rx:28Feb2018 Ordered Rx By: Ariane Solares; Dispense: 30 Days ; #:120 Tablet; Refill: 2; For: Irritable bowel syndrome; EMA= N; Verified Transmission to [facility] Last Updated By: Crystal Tafoya; 02/28/20188:24:37 AM 2. Enbrel 50 MG/ML Subcutaneous Solution Prefilled Syringe; INJECT 50MG ONCE A WEEK; Therapy: 86Mtw4159 to (Evaluate:06Iwo1861) Recorded Dispense: 28 Days ; #: Sufficient ML; Refill: 0; For: Inflammatory arthritis; EMA = N; Record; LastUpdated By: Argelia Chan; 02/23/2017 2:22:47 PM 3. Fluticasone Propionate 50 MCG/ACT Nasal Suspension; One spray each nostril two times daily; Therapy: 49Ayu7520 to (Last Rx:04Apr2018) Requested for: [id number] Ordered Rx By: Jes Reid; Dispense: 0 Days ; #:1 X 9.9 ML Bottle; Refill: 6; For: Sinusitis, acute; EMA = N; Verified Transmission to [facility]; Last Updated By: Vilma TafoyaChickRxgagan; 04/04/2018 3:27:56 PM 4. Folic Acid 1 MG Oral Tablet; TAKE 1 TABLET DAILY; Therapy: 47Gyr5895 to (Evaluate:50Zyl7974) Recorded Dispense: 30 Days ; #:30 Tablet; Refill: 3; EMA = Y; Record; Last Updated By: Lashaun Kathleen; 12/04/2014 2:26:01 PM 5. Hydrocod Polst-CPM Polst ER 10-8 MG/5ML Oral Suspension Extended Release; 5 ml by mouth every 12 hours for cough; Therapy: 17Mar2018 to (Last Rx:04Apr2018) Ordered Rx By: Jes Reid; Dispense: 0 Days ; #:60 Milliliter; Refill: 0; For: Cough in adult; EMA = N; Print Rx 6. Methotrexate 2.5 MG Oral Tablet; TAKE 8 TABLET Weekly; Therapy: 28Feb2018 to Recorded Dispense: 0 Days ; #: Sufficient Tablet; Refill: 0; EMA = N; Record; Last Updated By: Loreto Mendoza; 02/28/2018 8:03:30 AM 7. MiraLax Oral Packet; MIX 1 PACKET IN 8 OUNCES OF LIQUID AND DRINK ONCE DAILY. prn; Therapy: (Recorded:38Gqg0565) to Recorded Dispense: 15 Days ; #:15 Packet; Refill: 0; For: Irritable bowel syndrome; EMA = N; Record; Last Updated By: Sherin Abdi; 03/17/2018 1:27:46 PM 8. Multi-Vitamins TABS; TAKE 2 TABLET Daily; Therapy: (Recorded:60Fnd4633) to Recorded Dispense: 0 Days ; #: Sufficient Tablet; Refill: 0; EMA = N; Record; Last Updated By: Yohana Rodriguez;06/26/2015 8:33:56 AM 9. Nabumetone 500 MG Oral Tablet; TAKE 2 TABLET TWICE DAILY; Therapy: 23Eeu4804 to Recorded Dispense: 0 Days ; #: Sufficient Tablet; Refill: 0; For: Inflammatory arthritis; EMA = N; Record; Last Updated By: Yohana Rodriguez; 10/18/2015 8:38:42 AM 10. [place]-3 Complex 192-251-11 MG-MG-UNIT Oral Capsule; Take one cap daily; Therapy: (Recorded:04Dec2014) to Recorded Dispense: 0 Days ; #: Sufficient Capsule; Refill: 0; EMA = N; Record; Last Updated By: Lashaun Kathleen; 12/04/2014 2:26:00 PM 11. Premarin 0.625 MG/GM Vaginal Cream; Insert 0.5 gram 3 times weekly at hs; Therapy: 02Aug2014 to (Evaluate:20Yhr6274) Recorded Dispense: 0 Days ; #: Sufficient X 30 GM Tube; Refill: 0; EMA = N; Record; Last Updated By: Lashaun Kathleen; 12/04/2014 2:26:01 PM Allergies 1. Levaquin TABS Hallucinations; Nausea; Updated By: Loreto Mendoza; 02/28/2018 8:03:53 AM Vitals Recorded: 29Apr2018 07:59AM Temperature 98.1 F Heart Rate 101 Respiration 16 Systolic 138 Diastolic 80 O2 Saturation 97 Height 5 ft 7 in Weight 173 lb 8 oz BMI Calculated 27.17 BSA Calculated 1.9 Physical Exam Constitutional General appearance: No acute distress, well appearing and well nourished. Eyes Conjunctiva and lids: No swelling, erythema or discharge. Pupils and irises: Equal, round and reactive to light. Ears, Nose, Mouth, and Throat There are no adenopathies. Tympanic membranes were normal... Pulmonary The lungs show a very fine wheeze but I think it is more secretions... Cardiovascular Auscultation of heart: Normal rate and rhythm, normal S1 and S2, without murmurs. Examination of extremities for edema and/or varicosities: Normal. Abdomen Abdomen: Non-tender, no masses. Lymphatic Palpation of lymph nodes in neck: No lymphadenopathy. Musculoskeletal See HPI.. Skin Skin and subcutaneous tissue: Normal without rashes or lesions. Neurologic Cranial nerves: Cranial nerves 2-12 intact. Reflexes: 2+ and symmetric. Psychiatric Orientation to person, place, and time: Normal. Mood and affect: Normal. Assessment 1. BMI 27.0-27.9,adult (V85.23) (Z68.27) 2. Cough in adult (786.2) (R05) 3. Allergic rhinitis (477.9) (J30.9) Plan Cough in adult 1. Benzonatate 200 MG Oral Capsule; TAKE 1 CAPSULE 3 TIMES DAILY NEEDED Rx By: Jaspreet Pearl; Dispense: 10 Days ; #:30 Capsule; Refill: 0; For: Cough in adult; EMA =N; Verified Transmission to [facility] Last Updated By: [employer]Soft; 04/29/2018 8:20:19 AM 2. Montelukast Sodium 10 MG Oral Tablet; TAKE 1 TABLET IN THE EVENING Rx By: Jaspreet Pearl; Dispense: 30 Days ; #:30 Tablet; Refill: 3; For: Cough in adult; EMA = N; Verified Transmission to [facility] Last Updated By: [employer]; 04/29/2018 8:21:16 AM Discussion/Summary I am going to give her a sample of Symbicort to take for few days. She is getting ready to go to [facility] to visit her daughter. I am going to give her some Tessalon Perles for the cough and also I wanther to start taking 10 mg of Singulair per day for the next month and then we will go from there. Plenty of fluids. Signatures Electronically signed by : Jaspreet Pearl M.D.; May 03 2018 7:44AM WRAP YARN SORTER (Author) documented in this encounter Plan of Treatment Upcoming Encounters Date Type Department Care Team (Late st Contact Info) Description 11/14/2024 8:00 AM WRAP YARN SORTER Office Visit [facility] Multispecialty Care - [facility] 3 [facility], [address] [place] [address] Montserrat Oliver NP 3 [facility] [address] [place] [address] 12/06/2024 9:30 AM WRAP YARN SORTER [facility] [address] [place] [address] [place] [address] [facility] [place] [address] 03/02/2025 3:20 PM CDT Office Visit [facility] Family & Internal Medicine - [address] [phone] [place] [address] [facility]. [address] [place] [address] documented as of this encounter Visit Diagnoses Not on filedocumented in this encounter
--- OUTSIDE RECORDS SUMMARY | 2024-11-13 17:14 | XMS_ITS | Encounter Summary ---
Author Organization [facility] Address [address] [place] [address]. [place] [address] [place] [address] Care Team Providers Care Bowl Attendant Name Role Phone Jaspreet Pearl MD Primary Care Provider Felipe rangel Encounter Details Date Type Department Care Team (Late st Contact Info) Description 03/17/2018 [email or web address] [address] [place] [address] Jes Reid NP Social History Tobacco Use Types Packs/Day Years [...] st Contact Info) Description 11/14/2024 8:00 AM CHEF BROILER OR FRY Office Visit [facility] Multispecialty Care - [facility] 3 [facility], [address] [place] [address] Montserrat Oliver NP 3 [facility] [address] [place] [address] 12/06/2024 9:30 AM CHEF BROILER OR FRY Appointment [facility] [address] [place] [address] [place] [address] [facility] [address] [place] [address] 03/02/2025 3:20 PM CDT Office Visit [facility] Family & Internal Medicine [facility] [address] [place] [address] [place] [address] [facility]. [address] [place] [address] documented as of this encounter Procedures Procedure Name Priority Date/Time Associated Diagnosis Comments CULTURE STREP A Routine 03/17/2018 1:45 PM CDT documented in this encounter Results * CULTURE STREP A (03/17/2018 1:45 PM CDT) SPEC DESCRIPTION THROAT 03/17/2018 5:12 PM CDT [facility] SPECIAL REQUESTS NO SPECIAL REQUEST 03/17/2018 5:12 PM CDT [facility] CULTURE RESULT NO STREPTOCOCCUS PYOGENES (GROUP A) ISOLATED 03/20/2018 8:28 AM CDT [facility] THROAT SWAB / Unknown 03/17/2018 1:45 PM CDT 03/17/2018 5:27 PM CDT us Generic Conversion Md [facility] - GENERAL ORDERABLES Final Result [facility] [address] [place] [address], [place] [phone] [facility] [address] [place] [address], [place] [phone] documented in this encounter Visit Diagnoses Diagnosis Acute pharyngitis documented in this encounter Care Teams Bowl Attendant Relationship Specialty Start Date End Date Jaspreet Pearl MD PCP - General INTERNAL MEDICINE 11/30/18 02/18/23 documented as of this encounter
--- OUTSIDE RECORDS SUMMARY | 2024-11-13 17:14 | XMS_ITS | Encounter Summary ---
Author Organization [facility] Address [address] [place] [address]. [place] [address] [place] [address] Care Team Providers Care Business Computers Teacher Name Role Phone Unavailable Primary Care Provider Unavailabl e Reason for Visit * Reason Onset Date Comments Medication 10/19/2018 Encounter Details Date Type Department Care Team (Late st Contact Info) Description 10/19/2018 Telephone [facility] Family & Internal Medicine [facility] [address] [place] [address] [place] [address] [place] [address] Medication Social History Tobacco Use Types Packs/Day Years Used Date Smoking Tobacco: Never Assessed Comments Unknown Sex and Gender Information Value Date Recorded Sex Assigned at Not on file Legal Sex Female 8:16 PM CDT Gender Identity Not on file Sexual Orientation Not on file documented as of this encounter Progress Notes * Montserrat Weber RN - 10/19/2018 4:39 PM CST Rogers Mcnally Xanax 0.25mg 1 tab BID PRN #20 with no refill called to [facility] Red as requested. NDING ANESTHESIOLOGIST * Aline Valencia MA - 10/19/2018 10:37 AM CST Hans is currently at [facility] in [place]. Her father underwent a liver transplant and had astroke and is not expected to survive recovery. Hans is under a great deal of stress and is struggling with sleep. She is requesting [facility] The [facility] is at [address] [place] [address] at [facility] and the phone is [phone]. Hans can be reached at [phone] with any problems or questions. NDING ANESTHESIOLOGIST documented in this encounter Plan of Treatment Upcoming Encounters Date Type Department Care Team (Late st Contact Info) Description 11/14/2024 8:00 AM ATTENDING ANESTHESIOLOGIST Office Visit [facility] Multispecialty Care - [facility] 3 [facility], [address] [place] [phone] Montserrat Oliver NP 3 [facility] [address] [place] [address] 12/06/2024 9:30 AM ATTENDING ANESTHESIOLOGIST Appointment [facility] Open MRI [address] [place] [address] [place] [address] [facility] [address] [place] [address] 03/02/2025 3:20 PM CDT Office Visit [facility] Family & Internal Medicine - [address] [phone] [place] [address] [facility]. [address] [place] [address] documented as of this encounter Visit Diagnoses Not on filedocumented in this encounter
--- OUTSIDE RECORDS SUMMARY | 2024-11-13 17:14 | XMS_ITS | Encounter Summary ---
Author Organization [facility] Address [address] [place] [address]. [place], [place] [address] [place] [address] Care Team Providers Care Motorcycle Tester Name Role Phone Jaspreet Madsen MD Primary Care Provider U juan carlos Reason for Visit * Reason Comments Medication Check discuss Wellbutrin m ed. Anxiety may need to change m ed? Allergies went to personnel adviser la st wk. was allergic to alot of things. Encounter Details Date Type Department Care Team (Late st Contact Info) Description 03/08/2019 3:40 PM CDT Office Visit [facility] Medical [facility] Family & Internal Medicine [address] [address] Jaspreet Madsen MD Medication Check (discuss Wellbutrin med. ); Anxiety (may need to change med? ); Allergies (went to personnel adviser last wk. was allergic to alot of things. ) Social History Tobacco Use Types Packs/Day [...] Master's degree (e.g., MA, MS, Howard, MEd, [employer], KE[employer]) 12/21/2018 Comments No Sex and Gender [...] Sign Reading Time Taken Comments Blood Pressure 140/70 03/08/2019 4:01 PM CDT Pulse 94 03/08/2019 4:01 PM CDT Temperature 36.9 ??C (98.4 ??F) 03/08/2019 4:01 PM CD T Respiratory Rate 16 03/08/2019 4:01 PM CDT Oxygen Saturation 99% 03/08/2019 4:01 PM CDT Inhaled Oxygen Concentration - - Weight 73.6 kg (162 lb 3.2 oz) 03/08/2019 4:01 P M CDT Height 172.7 cm (5' 8 ) 03/08/2019 4:01 PM CDT Body Mass Index 24.66 03/08/2019 4:01 PM CDT documented in this encounter Progress Notes * Jaspreet Madsen MD - 03/08/2019 3:40 PM CDT Reason for Visit: Medication Check (discuss Wellbutrin med. ); Anxiety (may need to change med? ); and Allergies (went to personnel adviser last wk. was allergic to alot of things. ) Filed Vitals: 03/08/19 1601 BP: 140/70 Pulse: 94 Resp: 16 Temp: 98.4 ??F (36.9 ??C) SpO2: 99% Weight: 73.6 kg (162 lb 3.2 oz) Height: 5' 8 (1.727 m) Body mass index is 24.66 kg/m??. History of Present Illness: HPI in this patient is Mrs. Pascual she has a long history of anxiety depression allergies she said that she was always cannula nervous person but few years ago when her ex- left her after she had a baby and she had 3 kids he was very stressful time and since then she has been very anxiousnow she is with a very good person that understands her and help her a lot she said so recently went to see the allergies and found her to be allergic to a lot of things outdoors allergies indoors allergies so they are discussing the possibility of some immunological desensitization. From the anxiety part I want to keep her in bupropion and I would like to is BuSpar 50 mg twice a day I wan priscilla to stay away from too much Xanax so will try that approach and see we had a long conversation regarding the stressful techniques how to deal with that she is very pleasant lady unfortunately she said that sometimes things get out of control for her she worries about everything. ROS: Review of Systems Constitutional: Negative. HENT: Negative. Multiple allergies with nasal congestion runny nose sneezing Eyes: Negative. Respiratory: Negative. Cardiovascular: Negative. Gastrointestinal: [...] daily., Disp: 60 tablet, Rfl: 2 ??? conjugated estrogens 0.625 MG/GM vaginal cream, Place 0.5 g vaginally twice a week., Disp: , Rfl: ??? KOR-VPB-Wgjxryu E (OMEGA-3 COMPLEX) 192-251-11 MG-MG-UNIT Cap, Take [...] bedtime., Disp: 90 tablet, Rfl: 0 ??? nabumetone [...] Master's degree (e.g., MA, MS, Howard, MEd, [employer], [employer]) Occupational History ??? 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 Financial resource strain: Not on file ??? Food insecurity: Worry: Not on file Inability: Not on file ??? Transportation needs: Medical: Not on file Non-medical: Not on file Tobacco Use ??? Smoking status: Former Smoker Packs/day: 0.25 Years: 4.00 Pack years: 1.00 Types: Cigarettes Last attempt to quit: 1990 Years since quittin.3 ??? Smokeless tobacco: Never [...] file Gets together: Not on file Attends taoist service: Not on file Active member of [...] behavior is normal. Judgment and thought contentnormal. Evidence of anxiety crying easily, overwhelmed by different issues family issues work issues etc. she worries about everything her words Nursing note and vitals reviewed. Assessment Encounter Diagnose(s) ICD-10-CM ICD-9-CM SNOMED CT(R) 1. DURAN (generalized anxiety disorder) F41.1 300.02 GENERALIZED ANXIETY DISORDER busPIRone 15 MG tablet 2. Gastroesophageal reflux disease without esophagitis K21.9 530.81 GASTROESOPHAGEAL REFLUX DISEASEWITHOUT ESOPHAGITIS 3. Polyarthritis M13.0 716.50 POLYARTHROPATHY Plan Orders Placed This Encounter ??? busPIRone 15 MG tablet Follow up FU 1 MONTH JASPREET MADSEN MD 03/09/2019 9:48 AM documented in this encounter Plan of Treatment Upcoming Encounters Date Type Department Care Team (Late st Contact Info) Description 11/14/2024 8:00 AM DOOR CLAMPER Office Visit [facility] Multispecialty Care - [address], [address] [place] [phone] Montserrat Oliver NP 3 [facility] [address] [place] [address] 12/06/2024 9:30 AM DOOR CLAMPER Appointment [facility] Open MRI [address] [place] [address] [place] [address] [facility]. [address] [place] [address] 03/02/2025 3:20 PM CDT Office Visit [facility] Family & Internal Medicine - [place] [address] [place] [phone] [place] [address] [facility]. [address] [place] [address] documented as of this encounter Visit Diagnoses Diagnosis DURAN (generalized anxiety disorder)- Primary Generalized anxiety disorder Gastroesophageal reflux disease without esophagitis Esophageal reflux Polyarthritis Unspecified polyarthropathy or polyarthritis, site unspecified documented in this encounter Care Teams Motorcycle Tester Relationship Specialty Start Date End Date Jaspreet Madsen MD PCP - General INTERNAL MEDICINE 11/30/18 02/18/23 documented as of this encounter
--- OUTSIDE RECORDS SUMMARY | 2024-11-13 17:14 | XMS_ITS | Encounter Summary ---
Author Organization [facility] Address [address] [place] [address]. [place] [address] [place] [address] Care Team Providers Care Shoe Patternmaker Name Role Phone Unavailable Primary Care Provider Unavailabl e Encounter Details Date Type Department Care Team (Late st Contact Info) Description 04/04/2018 Abstract [facility] Medical Group Family & Internal Medicine [facility] [address] [place] [address] [place] [address] [place], [place] [id number] Social History Tobacco Use Types Packs/Day Years Used Date Smoking Tobacco: Never Assessed Comments Unknown Sex and Gender Information Value Date Recorded Sex Assigned at Not on file Legal Sex Female 8:16 PM CDT Gender Identity Not on file Sexual Orientation Not on file documented as of this encounter Last Filed Vital Signs Vital Sign Reading Time Taken Comments Blood Pressure 112/62 04/04/2018 3:00 PM CDT Pulse 85 04/04/2018 3:00 PM CDT Temperature - - Respiratory Rate - - Oxygen Saturation - - Inhaled Oxygen Concentration - - Weight 78 kg (172 lb) 04/04/2018 3:00 PM CDT Height 170.2 cm (5' 7 ) 04/04/2018 3:00 PM CDT Body Mass Index 26.94 04/04/2018 3:00 PM CDT documented in this encounter Progress Notes * Jes Reid NP - 04/04/2018 3:00 PM CDT Reason For Visit Reason For Visit: Acute Follow-Up Visit Chief Complaint pt c/o still not feeling well. continued sore throat, hoarse voice, cough. 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 States she did take all of her antibiotic and started feeling better, but states now she has had a sore throat for the past nine days. States she is coughing up yellow and white phlegm. States her throat is hurting terribly, does not feel likeit does when she has strep but it hurts every time she swallows. States she is leaving for [facility] to visit her son and then she leaves in April for [facility] to visit her daughter. Sore Throat: [facility] presents with complaints of gradual onset of constant episodes of moderate bilateral sore throat, described as aching and burning, non-radiating. Episodes started about 9 days ago.She is currently experiencing sore throat. Symptoms are improved by drinking liquids, salt water gargles and OTC throat lozenges. Symptoms are made worse by dry environment. Symptoms are unchanged. Associated symptoms include no odynophagia, no postnasal drainage, no swollen glands, no myalgias, no drooling, no stridor, no fever, no chills, no neck stiffness, no ear pain, no facial pain, no abdominal pain, no nausea, no vomiting, no rash, no anorexia and no fatigue. The patient presents with complaints of gradual onset of constant episodes of moderate oropharyngeal dysphagia, non-radiating. On a scale of 1 to 10, the patient rates the pain as 5. Episodes startedabout 9 days ago. She is currently experiencing dysphagia. Her symptoms are caused by no known event. The patient presents with complaints of gradual onset of intermittent episodes of bilateral nasal congestion. Episodes started about 9 days ago. She is currently experiencing nasal congestion. Her symptoms are possibly caused by allergen exposure. The patient presents with complaints of gradual onset of intermittent episodes of moderate bilateral frontal headache, described as aching, non-radiating. On a scale of 1 to 10, the patient rates thepain as 5. Episodes started about 9 days ago. She is currently experiencing headache. The patient presents with complaints of gradual onset of constant episodes of severe hoarseness. Episodes about days ago. She is currently experiencing hoarseness. Her symptoms are possibly caused byexcessive talking and upper respiratory infection. Symptoms are improved by humidified air and vocal rest. The patient presents with complaints of gradual onset of intermittent episodes of moderate cough, described as hacking. Episodes started about 9 days ago. She is currently experiencing cough. Cough: [facility] presents with complaints of gradual onset of intermittent episodes of moderate cough, described as productive. Episodes started about 9 days ago. She is currently experiencing cough. Her symptoms are possibly caused by allergen contact. Symptoms are improved by avoiding irritants, resting, sitting up and cough drops. Associated symptoms include painful swallowing and headache, but no dyspnea, no wheezing, no chills, no fever, no runny nose, no stuffy nose, no myalgias, no pleuritic chest pain, no chest pain, no vomiting, no heartburn, no postnasal drainage, no mouth breathing, no noisy breathing, no rapid breathing, no eye itching, no nose itching, no hemoptysis and no night sweats. The patient presents with complaints of gradual onset of constant episodes of moderate bilateral sore throat, described as aching and burning, non-radiating. Episodes started about 9 days ago. The patient presents with complaints of gradual onset of constant episodes of severe hoarseness. Episodes about days ago. She is currently experiencing hoarseness. Review of Systems See HPI for pertinent positives. Constitutional: feeling poorly, feeling tired and headache, but no fever and no chills. ENT: sore throat, nasal discharge and hoarseness, but no earache. Cardiovascular: Normal. Respiratory: cough, but no shortness of breath, no shortness of breath during exertion and no wheezing. Gastrointestinal: Normal. Genitourinary: Normal. Integumentary: Normal. Musculoskeletal: Normal. Neurological: Normal. Psychiatric: Normal. Active Problems 1. Amenorrhea (626.0) (N91.2) 2. Anxiety (300.00) (F41.9) 3. Arthritis (716.90) (M19.90) 4. Cough in adult (786.2) (R05) 5. Esophageal reflux (530.81) (K21.9) 6. Inflammatory arthritis (714.9) (M19.90) 7. Insomnia (780.52) (G47.00) 8. Irritable bowel syndrome (564.1) (K58.9) 9. Laryngitis (464.00) (J04.0) 10. Polyarthritis (716.50) (M13.0) 11. Wears glasses (V49.89) (Z97.3) Past Medical History [...] No illicit drug use ?? 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 Dicyclomine HCl - 20 MG Oral Tablet; TAKE 1 TABLET BY MOUTH EVERY 6 HOURS NEEDED; Therapy: 58Ykm7322 to (Evaluate:73Mtx5146) Requested for: 30Jho5138; Last Rx:[id number] Ordered Rx By: Ariane Solares; Dispense: 30 Days ; #:120 Tablet; Refill: 2; For: Irritable bowel syndrome; EMA= N; Verified Transmission to [facility] Last Updated By: Michelet Ruby Groupehanh; 02/28/20188:24:37 AM 2. Enbrel 50 MG/ML Subcutaneous Solution Prefilled Syringe; INJECT 50MG ONCE A WEEK; Therapy: 94Vgt3160 to (Evaluate:38Ypb4413) Recorded Dispense: 28 Days ; #: Sufficient ML; Refill: 0; For: Inflammatory arthritis; EMA = N; Record; LastUpdated By: Argelia Chan; 02/23/2017 2:22:47 PM 3. Folic Acid 1 MG Oral Tablet; TAKE 1 TABLET DAILY; Therapy: 22Tpu2603 to (Evaluate:25Bwo1512) Recorded Dispense: 30 Days ; #:30 Tablet; Refill: 3; EMA = Y; Record; Last Updated By: Lashaun Kathleen; 12/04/2014 2:26:01 PM 4. Hydrocod Polst-CPM Polst ER 10-8 MG/5ML Oral Suspension Extended Release; 5 ml by mouth every 12 hours for cough; Therapy: 65Hka6697 to (Last Rx:22Mar2018) Ordered Rx By: Jes Reid; Dispense: 0 Days ; #:60 Milliliter; Refill: 0; For: Cough in adult; EMA = N; Print Rx 5. Methotrexate 2.5 MG Oral Tablet; TAKE 8 TABLET Weekly; Therapy: 28Feb2018 to Recorded Dispense: 0 Days ; #: Sufficient Tablet; Refill: 0; EMA = N; Record; Last Updated By: Loreto Mendoza; 02/28/2018 8:03:30 AM 6. MiraLax Oral Packet; MIX 1 PACKET IN 8 OUNCES OF LIQUID AND DRINK ONCE DAILY. prn; Therapy: (Recorded:66Kxk9209) to Recorded Dispense: 15 Days ; #:15 Packet; Refill: 0; For: Irritable bowel syndrome; EMA = N; Record; Last Updated By: Sherin Abdi; 03/17/2018 1:27:46 PM 7. Multi-Vitamins TABS; TAKE 2 TABLET Daily; Therapy: (Recorded:12Qvw0302) to Recorded Dispense: 0 Days ; #: Sufficient Tablet; Refill: 0; EMA = N; Record; Last Updated By: Yohana Rodriguez;06/26/2015 8:33:56 AM 8. Nabumetone 500 MG Oral Tablet; TAKE 2 TABLET TWICE DAILY; Therapy: 99Ojr0491 to Recorded Dispense: 0 Days ; #: Sufficient Tablet; Refill: 0; For: Inflammatory arthritis; EMA = N; Record; Last Updated By: Yohana Rodriguez; 10/18/2015 8:38:42 AM 9. Quogue-3 Complex 192-251-11 MG-MG-UNIT Oral Capsule; Take one cap daily; Therapy: (Recorded:04Dec2014) to Recorded Dispense: 0 Days ; #: Sufficient Capsule; Refill: 0; EMA = N; Record; Last Updated By: Lashaun Kathleen; 12/04/2014 2:26:00 PM 10. Premarin 0.625 MG/GM Vaginal Cream; Insert 0.5 gram 3 times weekly at hs; Therapy: 98Nuj3572 to (Evaluate:68Htz3980) Recorded Dispense: 0 Days ; #: Sufficient X 30 GM Tube; Refill: 0; EMA = N; Record; Last Updated By: Lashaun Kathleen; 12/04/2014 2:26:01 PM 11. Promethazine-DM 6.25-15 MG/5ML Oral Syrup; TAKE 5 ML EVERY 4 TO 6 HOURS NEEDED FOR COUGH; Therapy: 71Ueo0418 to (Evaluate:04Vkz6937) Requested for: 28Tcy0274; Last Rx:[id number] Ordered Rx By: Jes Reid; Dispense: 4 Days ; #:120 Milliliter; Refill: 1; For: Cough in adult; EMA =N; Verified Transmission to [facility] Last Updated By: Crystal Tafoya; 03/18/2018 9:32:13 AM Allergies 1. Levaquin TABS Hallucinations; Nausea; Updated By: Loreto Mendoza; 02/28/2018 8:03:53 AM Vitals Recorded: 04Apr2018 03:00PM Temperature 98.7 F Heart Rate 85 Respiration 16 Systolic 112 Diastolic 62 O2 Saturation 97 Height 5 ft 7 in Weight 172 lb BMI Calculated 26.94 BSA Calculated 1.9 Physical Exam Constitutional General appearance: Abnormal. acutely ill, uncomfortable and appears tired, but well developed, well nourished, clothing appropriate, well groomed and body odor was normal. Eyes Conjunctiva and lids: No swelling, erythema or discharge. Ears, Nose, Mouth, and Throat External inspection of ears and nose: Normal. Otoscopic examination: Tympanic membranes translucent with normal light reflex. Canals patent without erythema. Oropharynx: Abnormal. Oropharynx examination showed no lesions. Oral mucosa was moist, but was normal. The palate examination showed no abnormalities. The tongue was normal. The posterior pharynx waserythematous, but did not have an ulcer on the right, was not bulging, did not have an exudate, didnot have an ulcer on the left and did not have white patches. Pulmonary Respiratory effort: No increased work of breathing or signs of respiratory distress. Auscultation of lungs: Clear to auscultation. Cardiovascular Auscultation of heart: Normal rate and rhythm, normal S1 and S2, without murmurs. Examination of extremities for edema and/or varicosities: Normal. Lymphatic Palpation of lymph nodes in neck: No lymphadenopathy. Musculoskeletal Gait and station: Normal. Skin Skin and subcutaneous tissue: Normal without rashes or lesions. Neurologic Sensation: No sensory loss. Psychiatric Orientation to person, place, and time: Normal. Mood and affect: Normal. Assessment 1. Cough in adult (786.2) (R05) 2. Laryngitis (464.00) (J04.0) 3. Sinusitis, acute (461.9) (J01.90) Plan Cough in adult 1. Hydrocod Polst-CPM Polst ER 10-8 MG/5ML Oral Suspension Extended Release (Tussionex Pennkinetic ER); 5 ml by mouth every 12 hours for cough Rx By: Jes Reid; Dispense: 0 Days ; #:60 Milliliter; Refill: 0; For: Cough in adult; EMA = N; Print Rx Formulary Override Reason: Drug is not indicated for Patient condition Laryngitis 2. Avoid exposure to household dust, animal dander, and molds.; Status:Complete; Done: 34Xlb4318 Ordered; For:Laryngitis; Ordered By:Jes Reid; 3. Call if: You have difficulty swallowing.; Status:Complete; Done: 20Vtr0208 Ordered; For:Laryngitis; Ordered By:Jes Reid; 4. Avoid using cough medicines unless your cough keeps you awake at night.; Status:Complete; Done: 31Ume5147 Ordered; For:Laryngitis; Ordered By:Jes Reid; 5. Call if: Your hoarse voice is not better in 1 week.; Status:Complete; Done: 73Qqw5913 Ordered; For:Laryngitis; Ordered By:Jes Reid; 6. Drink plenty of fluids.; Status:Complete; Done: 93Ele0910 Ordered; For:Laryngitis; Ordered By:Jes Reid; 7. Call if: Your sore throat is not better in 1 week.; Status:Complete; Done: 49Let9025 Ordered; For:Laryngitis; Ordered By:Jes Reid; 8. Gargle with warm salt water for 5 minutes every 4 hours.; Status:Complete; Done: 57Zgb6865 Ordered; For:Laryngitis; Ordered By:Jes Reid; 9. There are several ways to relax your throat, tongue, and lips before singing or talking for a long time.; Status:Complete; Done: 60Ixe2104 Ordered; For:Laryngitis; Ordered By:Jes Reid; 10. Use a cool mist humidifier in the room.; Status:Complete; Done: 73Fwk8786 Ordered; For:Laryngitis; Ordered By:Jes Reid; Sinusitis, acute 11. Amoxicillin-Pot Clavulanate 875-125 MG Oral Tablet; TAKE 1 TABLET EVERY 12 HOURS WITH MEALS UNTIL GONE Rx By: Jes Reid; Dispense: 10 Days ; #:20 Tablet; Refill: 1; For: Sinusitis, acute; EMA = N; Verified Transmission to [facility] Last Updated By: cityguru; 04/04/2018 3:27:55 PM 12. Fluticasone Propionate 50 MCG/ACT Nasal Suspension; One spray each nostril two times daily Rx By: Jes Reid; Dispense: 0 Days ; #:1 X 9.9 ML Bottle; Refill: 6; For: Sinusitis, acute; EMA = N; Verified Transmission to [facility] Last Updated By: cityguru; 04/04/2018 3:27:56 PM Plan antibiotics and nasal spray as ordered. Warm salt water gargles for throat pain. Ibuprofen as needed for pain/discomfort. Follow up if no relief and will need to consider referral to ENT for laryngitis. Signatures Electronically signed by : Jes Reid APN; Apr 04 2018 3:38PM ZINC SKIMMER (Author) documented in this encounter Plan of Treatment Upcoming Encounters Date Type Department Care Team (Late st Contact Info) Description 11/14/2024 8:00 AM ZINC SKIMMER Office Visit [facility] Multispecialty Care - [facility] 3 [facility], [address] [place] [phone] Montserrat Oliver NP 3 [facility] [address] [place] [address] 12/06/2024 9:30 AM ZINC SKIMMER Appointment [facility] Open MRI [address] [place] [address] [place] [address] [facility] [place] [address] 03/02/2025 3:20 PM CDT Office Visit [facility] Family & Internal Medicine - [address] [phone] [place] [address] [facility]. [address] [place] [address] documented as of this encounter Visit Diagnoses Not on filedocumented in this encounter
--- OUTSIDE RECORDS SUMMARY | 2024-11-13 17:15 | XMS_ITS | Encounter Summary ---
Author Organization [facility] Address [address] [place] [address]. [place] [address] [place] [address] Care Team Providers Care Sand System Operator Name Role Phone Unavailable Primary Care Provider Unavailabl e Encounter Details Date Type Department Care Team (Latest Contact Info) Description 02/22/2017 Abstract [facility] Medical Group García Hess MD [address] [place] [address] Social History Tobacco Use Types Packs/Day Years [...] st Contact Info) Description 11/14/2024 8:00 AM AUTOMOTIVE GENERAL MANAGER Office Visit [facility] Multispecialty Care - [facility] 3 [facility], [address] [place] [phone] Montserrat Oliver NP 3 [facility] [address] [place] [address] 12/06/2024 9:30 AM AUTOMOTIVE GENERAL MANAGER Appointment [facility] Open MRI [address] [facility] [address] [place] [address] [place] [address] [address] [place] [address] 03/02/2025 3:20 PM CDT Office Visit [facility] Medical Group Family & Internal Medicine - [place] [address] [place] [address] [place] [address] [facility] Darlene. [address] [place] [address] documented as of this encounter Visit Diagnoses Not on filedocumented in this encounter
--- OUTSIDE RECORDS SUMMARY | 2024-11-13 17:15 | XMS_ITS | Encounter Summary ---
Author Organization [facility] Address [address] [place] [address]. [place] [address] [place] [address] Care Team Providers Care Tomographic Tech Name Role Phone Jaspreet Pearl MD Primary Care Provider Felipe archerelijah Encounter Details Date Type Department Care Team (Late st Contact Info) Description 06/15/2016 Abstract [facility] Diagnostic Imaging [address] [place] [address] Stalin Calderón MD [address] [id number] Social History Tobacco Use Types Packs/Day Years [...] Contact Info) Description 11/14/2024 8:00 AM GARMENT FOLDER Office Visit [facility] Medical [facility] Multispecialty Care - [facility] 3 [facility], [address] [place] [address] Montserrat Oliver NP 3 [facility] [address] [place] [address] 12/06/2024 9:30 AM GARMENT FOLDER [facility]ment [facility] [address] [place] [address] [place] [address] [facility] [address]arl[facility]. [address] [place], [place] [phone] 03/02/2025 3:20 PM CDT Office Visit [facility] Medical Group Family & Internal Medicine - [place] [address] [place] [address] [place] [address] [facility] [employer] [place] [address] documented as of this encounter Visit Diagnoses Diagnosis Encounter for screening mammogram for malignant neoplasm of breast Other screening mammogram documented in this encounter Care Teams Tomographic Tech Relationship Specialty Start Date End Date Jaspreet Pearl MD PCP - General INTERNAL MEDICINE 11/30/18 02/18/23 documented as of this encounter
--- OUTSIDE RECORDS SUMMARY | 2024-11-13 17:15 | XMS_ITS | Encounter Summary ---
Author Organization [facility] Address [address] [place] [address]. [place] [address] [place] [address] Care Team Providers Care Environmental Technical Officer Name Role Phone Unavailable Primary Care Provider Unavailabl e Encounter Details Date Type Department Care Team (Late st Contact Info) Description 02/23/2017 Abstract [facility] Medical Group Family & Internal Medicine [address] [address] García Hess MD [address] [place] [address] Social History Tobacco Use Types Packs/Day Years Used Date Smoking Tobacco: Never Assessed Comments Unknown Sex and Gender Information Value Date Recorded Sex Assigned at Not on file Legal Sex Female 8:16 PM CDT Gender Identity Not on file Sexual Orientation Not on file documented as of this encounter Last Filed Vital Signs Vital Sign Reading Time Taken Comments Blood Pressure 96/60 02/23/2017 2:23 PM CDT Pulse 68 02/23/2017 2:23 PM CDT Temperature - - Respiratory Rate - - Oxygen Saturation - - Inhaled Oxygen Concentration - - Weight - - Height 170.2 cm (5' 7 ) 02/23/2017 2:23 PM CDT Body Mass Index - - documented in this encounter Progress Notes * García Hess MD - 02/23/2017 2:30 PM CDT Reason For Visit Acute Follow-Up Visit Chief Complaint 1. Leg Pain Here for f/u of right calf pain. Walking boot in place, states calf feels better. Started physical therapy yesterday. History of Present Illness HPI Free Text: 51yo female for follow up. Right lower leg injury. 2 weeks from injury. Has been in boot, started PT yesterday, symptoms improving, continues to have pain with push off with walking. No longer any bruising or swelling. Review of Systems Constitutional: no fever, not feeling poorly and no chills. Cardiovascular: no chest pain. Respiratory: no cough. Gastrointestinal: no abdominal pain. Active Problems 1. Amenorrhea (626.0) (N91.2) 2. Anxiety (300.00) (F41.9) 3. Arthritis (716.90) (M19.90) 4. Esophageal reflux (530.81) (K21.9) 5. Inflammatory arthritis (714.9) (M19.90) 6. Insomnia (780.52) (G47.00) 7. Irritable bowel syndrome (564.1) (K58.9) 8. Leg pain, posterior, right (729.5) (M79.604) 9. Oral ulcer (528.9) (K12.1) 10. Polyarthritis (716.50) (M13.0) Past Medical History 1. History of Hip pain, left (719.45) (M25.552) 2. History of acute bronchitis (V12.69) (Z87.09) 3. History of laryngitis (V12.69) (Z87.09) 4. History of ulcerative colitis (V12.79) (Z87.19) 5. History of URI, acute (465.9) (J06.9) Surgical History 1. History of Colonoscopy 2. History of Gallbladder Surgery Family History Mother 1. No pertinent family history Social History ?? Never a smoker Current Meds 1. Dicyclomine HCl - 20 MG Oral Tablet; TAKE 1 TABLET BY MOUTH EVERY 6 HOURS NEEDED; Therapy: 03Yjc8110 to (Last Rx:19Feb2017) Requested for: 19Feb2017 Ordered 2. Enbrel 50 MG/ML Subcutaneous Solution Prefilled Syringe; INJECT 50MG ONCE A WEEK; Therapy: 61Vzz4756 to (Evaluate:18Wbn3995) Recorded 3. Folic Acid 1 MG Oral Tablet; TAKE 1 TABLET DAILY; Therapy: 76Xux3577 to (Evaluate:12Dmj4493) Recorded 4. Methotrexate Sodium 1 GM Injection Solution Reconstituted; INJECT 0.8 ML Weekly; Therapy: 09Awp0914 to Recorded 5. MiraLax Oral Packet; MIX 1 PACKET IN 8 OUNCES OF LIQUID AND DRINK ONCE DAILY; Therapy: (Recorded:35Cfc7237) to Recorded 6. Multi-Vitamins TABS; TAKE 2 TABLET Daily; Therapy: (Recorded:66Rqm0128) to Recorded 7. Nabumetone 500 MG Oral Tablet; TAKE 2 TABLET TWICE DAILY; Therapy: 82Sbq5694 to Recorded 8. Stendal-3 Complex 192-251-11 MG-MG-UNIT Oral Capsule; Take one cap daily; Therapy: (Recorded:04Dec2014) to Recorded 9. Premarin 0.625 MG/GM Vaginal Cream; Insert 0.5 gram 3 times weekly at hs; Therapy: 39Png6248 to (Evaluate:96Syu9689) Recorded Allergies 1. Levaquin TABS Vitals Recorded: 23Feb2017 02:23PM Temperature 98.8 F Heart Rate 68 Respiration 16 Systolic 96 Diastolic 60 O2 Saturation 98 Height 5 ft 7 in Unable to obtain weight Patient refused Patient refused Physical Exam Constitutional General appearance: No acute distress, well appearing and well nourished. Musculoskeletal right lower extremity. no effusion, no ecchymosis. mild TTP over mid gastroc. moreira test neg, no achilles defect noted. Assessment 1. Leg pain, posterior, right (729.5) (M79.604) Plan Leg pain, posterior, right 1. Follow-up visit in 1 month Outpatient Follow-up Status: Hold For - Scheduling Requested for: 92Sjt9575 Ordered; For: Leg pain, posterior, right; Ordered By: García Hess Performed: Due: 09Mar2017 Discussion/Summary 1. Right lower leg pain. 2 week from injury. doing better. just started with PT, continue boot for comfort with weight bear. Continue PT, OTC analgesics. Discussed natural course and warning signs. Fu 1 month. Signatures Electronically signed by : García Hess M.D.; Feb 23 2017 3:00PM PHOTOGRAPHS CURATOR (Author) documented in this encounter Plan of Treatment Upcoming Encounters Date Type Department Care Team (Late st Contact Info) Description 11/14/2024 8:00 AM PHOTOGRAPHS CURATOR Office Visit [facility] Multispecialty Care - [facility] 3 [facility], [address] [place] [address] Montserrat Oliver NP 3 [facility] [address] [place] [address] 12/06/2024 9:30 AM PHOTOGRAPHS CURATOR Appointment [facility] Open MRI [address] [place] [address] [place] [address] [facility] [place] [address] 03/02/2025 3:20 PM CDT Office Visit [facility] Family & Internal Medicine - [address] [phone] [place] [address] [facility] [address] [place] [address] documented as of this encounter Visit Diagnoses Not on filedocumented in this encounter
--- OUTSIDE RECORDS SUMMARY | 2024-11-13 17:15 | XMS_ITS | Encounter Summary ---
Author Organization [facility] Address [address] [place] [address]. [place] [address] [place] [address] Care Team Providers Care Field Technician Name Role Phone Unavailable Primary Care Provider Unavailabl e Encounter Details Date Type Department Care Team (Latest Contact Info) Description 10/20/2012 Abstract [facility] Medical Group Social History Tobacco Use [...] st Contact Info) Description 11/14/2024 8:00 AM BEEHIVE KILN SUPERVISOR Office Visit [facility] Medical [facility] Multispecialty Care - [facility] 3 [facility], [address] [place] [address] Montserrat Oliver, COO & CO FOUNDER 3 [facility] [address] [place] [address] 12/06/2024 9:30 AM BEEHIVE KILN SUPERVISOR Appointment [facility] Open MRI [address] [place] [address] [place] [address] [address] [place] [address] 03/02/2025 3:20 PM CDT Office Visit [facility] Medical Group Family & Internal Medicine - [place] [address] [place] [address] [place] [address] [facility]. [address] [place] [address] documented as of this encounter Visit Diagnoses Not on filedocumented in this encounter
--- OUTSIDE RECORDS SUMMARY | 2024-11-13 17:15 | XMS_ITS | Encounter Summary ---
Author Organization [facility] Address [address] [place] [address]. [place] [address] [place] [address] Care Team Providers Care Director Hydrogen Storage Engineering Name Role Phone Unavailable Primary Care Provider Unavailabl e Encounter Details Date Type Department Care Team (Latest Contact Info) Description 09/23/2012 Abstract [facility] [place] [address] [address] Social History Tobacco Use Types Packs/Day Years Used Date Smoking Tobacco: Never Assessed Comments Unknown Sex and Gender Information Value Date Recorded Sex Assigned at Not on file Legal Sex Female 8:16 PM CDT Gender Identity Not on file Sexual Orientation Not on file documented as of this encounter Last Filed Vital Signs Vital Sign Reading Time Taken Comments Blood Pressure 128/76 09/23/2012 2:04 PM BUSINESS SYSTEMS TECHNICIAN Pulse 75 09/23/2012 2:04 PM BUSINESS SYSTEMS TECHNICIAN Temperature - - Respiratory Rate - - Oxygen Saturation - - Inhaled Oxygen Concentration - - Weight 70.8 kg (156 lb) 09/23/2012 2:04 PM BUSINESS SYSTEMS TECHNICIAN Height - - Body Mass Index - - documented in this encounter Progress Notes * RYLIE Mejia - 09/23/2012 1:30 PM CST Reason For Visit Reason For Visit: Acute Visit Chief Complaint 1. Medication Refill Chief Complaint Free Text: She is here for a medication refill History of Present Illness HPI Free Text: Medication refills fatigue joint pain Review of Systems Focused-Female: Constitutional: feeling poorly and feeling tired. ENT: normal. Cardiovascular: Normal. Respiratory: Normal. Gastrointestinal: Normal. Genitourinary: Normal. Integumentary: Normal. Musculoskeletal: joint pain and joint stiffness, but Normal. Neurological: Normal. Other Symptoms: gen fatigue. Active Problems Amenorrhea 626.0 Past Medical History 1. History of Irritable Bowel Syndrome 564.1 Surgical History Patient indicates no past surgical history. Family History Patient indicates no significant family history of disease. Social History ?? Never A Smoker Current Meds 1. Bentyl CAPS; TAKE 1 CAPSULE EVERY 6 HOURS DAILY; Therapy: (Recorded:23Sep2012) to Recorded; Dispense: 0 Days ; #: Sufficient Capsule; Refill: 0; Record; Last Updated By: Tamie Cosby 2. NexIUM 40 MG Oral Capsule Delayed Release; TAKE 1 CAPSULE ONCE DAILY; Therapy: (Recorded:23Sep2012) to Recorded; Dispense: 90 Days ; #:90 Capsule Delayed Release; Refill: 0; Record; Last Updated By: Tamie Cosby 3. Xanax 0.25 MG Oral Tablet; TAKE 1 TABLET DAILY; Therapy: (Recorded:23Sep2012) to Recorded; Dispense: 0 Days ; #: Sufficient Tablet; Refill: 0; Record; Last Updated By: Tamie Cosby Allergies 1. Levaquin TABS Vitals Vital Signs [Data Includes: Current Encounter] 23Sep2012 02:04PM Heart Rate 75 Respiration 18 Systolic 128 Diastolic 76 Weight 156 lb O2 Saturation 98 LMP [id number] Physical Exam Constitutional General appearance: No acute distress, well appearing and well nourished. Eyes Conjunctiva and lids: No swelling, erythema or discharge. Pupils and irises: Equal, round and reactive to light. Ears, Nose, Mouth, and Throat External inspection of ears and nose: Normal. Otoscopic examination: Tympanic membranes translucent with normal light reflex. Canals patent without erythema. Oropharynx: Normal with no erythema, edema, exudate or lesions. Pulmonary Respiratory effort: No increased work of breathing or signs of respiratory distress. Auscultation of lungs: Clear to auscultation. Cardiovascular Auscultation of heart: Normal rate and rhythm, normal S1 and S2, without murmurs. Examination of extremities for edema and/or varicosities: Normal. Abdomen Abdomen: Non-tender, no masses. Lymphatic Palpation of lymph nodes in neck: No lymphadenopathy. Musculoskeletal Gait and station: Normal. Digits and nails: Normal without clubbing or cyanosis. Inspection/palpation of joints, bones, and muscles: Abnormal. Palpation - bilateral shoulder, bilateral elbow, bilateral wrist, bilateral hand, bilateral knee, bilateral foot and lower mid-lumbar tenderness. Skin Skin and subcutaneous tissue: Normal without rashes or lesions. Neurologic Cranial nerves: Cranial nerves 2-12 intact. Reflexes: 2+ and symmetric. Sensation: No sensory loss. Psychiatric Orientation to person, place, and time: Normal. Mood and affect: Normal. Assessment 1. Insomnia 780.52 2. Diffuse Joint Pains (Arthralgias) 719.40 3. Fatigue 780.79 4. Esophageal Reflux 530.81 Amenorrhea 626.0 Plan Refill meds as needed. LAB: CBC with diff, sed. rate, YOSEF, RF, B12 folate, CMP with lipids and LDL,TSH. FU in 7-10 days or sooner. Signatures Electronically signed by : JAIRO Muir; Nov 12 2012 1:46PM (Author) NESS SYSTEMS TECHNICIAN documented in this encounter Plan of Treatment Upcoming Encounters Date Type Department Care Team (Late st Contact Info) Description 11/14/2024 8:00 AM BUSINESS SYSTEMS TECHNICIAN Office Visit [facility] Multispecialty Care - [address], [address] [place] [address] Montserrat Oliver NP 3 [facility] [address] [place] [address] 12/06/2024 9:30 AM BUSINESS SYSTEMS TECHNICIAN Appointment [facility] Open MRI [address] [place] [address] [place] [address] [facility]. [address] [place] [address] 03/02/2025 3:20 PM CDT Office Visit [facility] Family & Internal Medicine - [address] [address] [place] [address] [facility]. [address] [place] [address] documented as of this encounter Visit Diagnoses Not on filedocumented in this encounter
--- OUTSIDE RECORDS SUMMARY | 2024-11-13 17:15 | XMS_ITS | Encounter Summary ---
Author Organization [facility] Address [address] [place] [address]. [place] [address] [place] [address] Care Team Providers Care Records Analyst Name Role Phone Unavailable Primary Care Provider Unavailabl e Encounter Details Date Type Department Care Team (Latest Contact Info) Description 11/24/2012 Abstract [facility] Medical Group Social History Tobacco [...] Contact Info) Description 11/14/2024 8:00 AM SUPERVISOR RECORDS CHANGE Office Visit [facility] Medical [facility] Multispecialty Care - [facility] 3 [facility], [address] [place] [address] Montserrat Oliver, DISTANCE LEARNING TECHNICIAN 3 [facility] [address] [place] [address] 12/06/2024 9:30 AM SUPERVISOR RECORDS CHANGE Appointment [facility] Open MRI [address] [place] [address] [place] [address] [address] [place] [address] 03/02/2025 3:20 PM CDT Office Visit [facility] Medical Group Family & Internal Medicine - [place] [address] [place] [address] [place] [address] [facility]. [address] [place] [address] documented as of this encounter Visit Diagnoses Not on filedocumented in this encounter
--- OUTSIDE RECORDS SUMMARY | 2024-11-13 17:15 | XMS_ITS | Encounter Summary ---
Author Organization [facility] Address [address] [place] [address]. [place] [address] [place] [address] Care Team Providers Care Spa Director Name Role Phone Jaspreet Pearl MD Primary Care Provider Felipe waydylan Encounter Details Date Type Department Care Team (Late st Contact Info) Description 02/17/2010 Abstract [facility] [address] [place] [address] Stalin Calderón MD [address] [address] Social History Tobacco Use Types Packs/Day Years [...] Contact Info) Description 11/14/2024 8:00 AM TECHNICAL ADMINISTRATIVE ASSISTANT Office Visit [facility] Medical Group Multispecialty Care - [facility] 3 [facility], [address] [place] [address] Montserrat Oliver NP 3 [facility] [address] [place] [address] 12/06/2024 9:30 AM TECHNICAL ADMINISTRATIVE ASSISTANT [facility] [address] [place] [address] [place] [address] [facility]. [address] [place] [address] 03/02/2025 3:20 PM CDT Office Visit [facility] Medical Group Family & Internal Medicine - [place] [address] [place] [address] [place] [address] [facility]. [address] [place] [id number] documented as of this encounter Visit Diagnoses Not on filedocumented in this encounter Care Teams Spa Director Relationship Specialty Start Date End Date Jaspreet Pearl MD PCP - General INTERNAL MEDICINE 11/30/18 02/18/23 documented as of this encounter
--- OUTSIDE RECORDS SUMMARY | 2024-11-13 17:15 | XMS_ITS | Encounter Summary ---
Author Organization [facility] Address [address] [place] [address]. [place], [place] [address] [place] [address] Care Team Providers Care Cornetist Name Role Phone Unavailable Primary Care Provider Unavailabl e Encounter Details Date Type Department Care Team (Latest Contact Info) Description 04/28/2016 Abstract [facility] Medical Group Social History Tobacco Use Types Packs/Day Years Used Date Smoking Tobacco: Never Assessed Comments Unknown Sex and Gender Information Value Date Recorded Sex Assigned at Not on file Legal Sex Female 8:16 PM CDT Gender Identity Not on file Sexual Orientation Not on file documented as of this encounter Progress Notes * Generic Conversion MD Jerrod - 04/28/2016 1:30 PM CDT Message Recorded as Task Date: 04/28/2016 01:14 PM, Created By: Perla Randolph Task Name: Renew Medication Assigned To: [facility] Nurse Team Regarding Patient: Hans Pascual, Status: Active Comment: Perla Randolph - 28 Apr 2016 1:14 PM TASK CREATED Caller: Elvira; Rec'd call from Elvira with [facility] in [place] requesting a refill of tramadol for pt. Elvira does state a request has been faxed to the office. Yohana Rodriguez - 28 Apr 2016 1:30 PM TASK EDITED Elvira at [facility] informed that per Dr Young the pt needs to be seen to discuss a need for the refill. We have not seen her since October and she was suppose to f/u after finishing PT andan ortho referral had been placed in January. Elvira stated that she will inform the pt Signatures Electronically signed by : Yohana Rodriguez R.N.; Apr 28 2016 1:30PM CONSTRUCTION FRAMER (Author) documented in this encounter Plan of Treatment Upcoming Encounters Date Type Department Care Team (Late st Contact Info) Description 11/14/2024 8:00 AM CONSTRUCTION FRAMER Office Visit [facility] Multispecialty Care - [facility] 3 [facility], [address] [place] [address] Montserrat Oliver NP 3 [facility] [address] [place] [address] 12/06/2024 9:30 AM CONSTRUCTION FRAMER Appointment [facility] Open MRI [address] [place] [address] [place] [address] [facility] [address] [place] [address] 03/02/2025 3:20 PM CDT Office Visit [facility] Family & Internal Medicine - [address] [phone] [place] [address] [facility] [address] [place] [address] documented as of this encounter Visit Diagnoses Not on filedocumented in this encounter
--- OUTSIDE RECORDS SUMMARY | 2024-11-13 17:15 | XMS_ITS | Encounter Summary ---
Author Organization [facility] Address [address] [place] [address]. [place] [address] [place] [address] Care Team Providers Care Engineering Department Chair Name Role Phone Unavailable Primary Care Provider Unavailabl e Encounter Details Date Type Department Care Team (Latest Contact Info) Description 12/03/2014 Abstract [facility] Medical Group Social History Tobacco Use [...] st Contact Info) Description 11/14/2024 8:00 AM PLASTIC SURGERY NURSE Office Visit [facility] Medical [facility] Multispecialty Care - [facility] 3 [facility], [address] [place] [address] Montserrat Oliver, FIELD INVESTIGATOR 3 [facility] [address] [place] [address] 12/06/2024 9:30 AM PLASTIC SURGERY NURSE Appointment [facility] Open MRI [address] [place] [address] [place] [address] [address] [place] [address] 03/02/2025 3:20 PM CDT Office Visit [facility] Medical Group Family & Internal Medicine - [place] [address] [place] [address] [place] [address] [facility]. [address] [place] [address] documented as of this encounter Visit Diagnoses Not on filedocumented in this encounter
--- OUTSIDE RECORDS SUMMARY | 2024-11-13 17:15 | XMS_ITS | Encounter Summary ---
Author Organization [facility] Address [address] [place] [address]. [place] [address] [place] [address] Care Team Providers Care Print Shop Stenographer Name Role Phone Jaspreet Pearl MD Primary Care Provider Felipe archerelijah Encounter Details Date Type Department Care Team (Late st Contact Info) Description 06/07/2013 Abstract [facility] Diagnostic Imaging [address] [place], [place] [address] Stalin Calderón MD [address] [id number] Social History Tobacco Use Types Packs/Day Years [...] (Late Contact Info) Description 11/14/2024 8:00 AM HIDE AND SKIN PROCESSING WORKER Office Visit [facility] Medical Group Multispecialty Care - [facility] 3 [facility], [address] [place] [address] Montserrat Oliver NP 3 [facility] [address] [place] [address] 12/06/2024 9:30 AM HIDE AND SKIN PROCESSING WORKER [facility]ment [facility] [address] [place] [address] [place] [address] [facility] [address] [place], [place] [id number] 03/02/2025 3:20 PM CDT Office Visit [facility] Medical Group Family & Internal Medicine [facility] [address] [place] [address] [place] [address] [facility]. [address] [place] [address] documented as of this encounter Visit Diagnoses Diagnosis Other screening mammogram documented in this encounter Care Teams Print Shop Stenographer Relationship Specialty Start Date End Date Jaspreet Pearl MD PCP - General INTERNAL MEDICINE 11/30/18 02/18/23 documented as of this encounter
--- OUTSIDE RECORDS SUMMARY | 2024-11-13 17:15 | XMS_ITS | Encounter Summary ---
Author Organization [facility] Address [address] [place] [address]. [place] [address] [place] [address] Care Team Providers Care Phlebotomy Tech Name Role Phone Unavailable Primary Care Provider Unavailabl e Encounter Details Date Type Department Care Team (Latest Contact Info) Description 12/18/2013 Abstract [facility] [place] [address] [address] [place] [address] Social History Tobacco Use Types Packs/Day [...] st Contact Info) Description 11/14/2024 8:00 AM SOCIAL SCIENCE ANALYST Office Visit [facility] Multispecialty Care - [facility] 3 [facility], [address] [place] [address] Montserrat Oliver NP 3 [facility] [address] [place] [address] 12/06/2024 9:30 AM SOCIAL SCIENCE ANALYST Appointment [facility] Open MRI [address] [place] [address] [place] [address] [address] [place] [address] 03/02/2025 3:20 PM CDT Office Visit [facility] Medical Group Family & Internal Medicine - [place] [address] [place] [address] [place] [address] [facility] Darlene. [address] [place] [address] documented as of this encounter Visit Diagnoses Not on filedocumented in this encounter
--- OUTSIDE RECORDS SUMMARY | 2024-11-13 17:15 | XMS_ITS | Encounter Summary ---
Author Organization [facility] Address [address] [place] [address]. [place] [address] [place] [address] Care Team Providers Care Accounts Specialist Name Role Phone Jaspreet Pearl MD Primary Care Provider Felipe waydylan Encounter Details Date Type Department Care Team (Late st Contact Info) Description 03/19/2005 Abstract [facility] CONVERSION [address] [place] [address] Mathew Levine MD Social History Tobacco Use Types Packs/Day [...] (Late Contact Info) Description 11/14/2024 8:00 AM STUD MASTER/MISTRESS Office Visit [facility] Medical Group Multispecialty Care - [facility] 3 [facility], [address] [place] [address] Montserrat Oliver NP 3 [facility] [address] [place] [address] 12/06/2024 9:30 AM STUD MASTER/MISTRESS Appointment [facility] Open MRI [address] [place] [address] [place] [address] [address] [place] [address] 03/02/2025 3:20 PM CDT Office Visit [facility] Medical Group Family & Internal Medicine - [address] [address] [place] [address] [place] [address] documented as of this encounter Visit Diagnoses Not on filedocumented in this encounter Care Teams Accounts Specialist Relationship Specialty Start Date End Date Jaspreet Pearl MD PCP - General INTERNAL MEDICINE 11/30/18 02/18/23 documented as of this encounter
--- OUTSIDE RECORDS SUMMARY | 2024-11-13 17:15 | XMS_ITS | Encounter Summary ---
Author Organization [facility] Address [address] [place] [address]. [place] [address] [place] [address] Care Team Providers Care Dormitory Supervisor Name Role Phone Jaspreet Pearl MD Primary Care Provider Felipe waydylan Encounter Details Date Type Department Care Team (Late st Contact Info) Description 01/26/2009 Abstract [facility] [address] [place] [address] Stalin Calderón MD [address] [address] Social History Tobacco Use Types Packs/Day Years [...] st Contact Info) Description 11/14/2024 8:00 AM PROGRAMMING INSTRUCTOR Office Visit [facility] Medical Group Multispecialty Care - [facility] 3 [facility], [address] [place] [address] Montserrat Oliver NP 3 [facility] [address] [place] [address] 12/06/2024 9:30 AM PROGRAMMING INSTRUCTOR [facility]ment [facility] [address] [place] [address] [place] [address] [facility]. [address] [place] [address] 03/02/2025 3:20 PM CDT Office Visit [facility] Medical Group Family & Internal Medicine - [place] [address] [place] [address] [place] [address] [facility]. [address] [place] [id number] documented as of this encounter Visit Diagnoses Not on filedocumented in this encounter Care Teams Dormitory Supervisor Relationship Specialty Start Date End Date Jaspreet Pearl MD PCP - General INTERNAL MEDICINE 11/30/18 02/18/23 documented as of this encounter
--- OUTSIDE RECORDS SUMMARY | 2024-11-13 17:15 | XMS_ITS | Encounter Summary ---
Author Organization [facility] Address [address] [place] [address]. [place] [address] [place] [address] Care Team Providers Care Manager Completions Name Role Phone Jaspreet Pearl MD Primary Care Provider Felipe archerelijah Encounter Details Date Type Department Care Team (Late st Contact Info) Description 04/02/2008 Abstract [facility] [address] [place] [address] Yahir Ramirez MD 3532 [facility] [address] [place] [address] Social History Tobacco Use Types Packs/Day Years [...] st Contact Info) Description 11/14/2024 8:00 AM SPOOL WORKER Office Visit [facility] Medical Group Multispecialty Care - [facility] 3 [facility], [address] [place] [address] Montserrat Oliver NP 3 [facility] [address] [place] [address] 12/06/2024 9:30 AM SPOOL WORKER Appointment [facility] Open MRI [address] [place] [address] [place] [address] [facility]. [address] [place] [address] 03/02/2025 3:20 PM CDT Office Visit [facility] Medical Group Family & Internal Medicine [facility] [address] [place] [address] [place] [address] [facility]. [address] [place], [place] [phone] documented as of this encounter Visit Diagnoses Not on filedocumented in this encounter Care Teams Manager Completions Relationship Specialty Start Date End Date Jaspreet Pearl MD PCP - General INTERNAL MEDICINE 11/30/18 02/18/23 documented as of this encounter
--- OUTSIDE RECORDS SUMMARY | 2024-11-13 17:15 | XMS_ITS | Encounter Summary ---
Author Organization [facility] Address [address] [place] [address]. [place] [address] [place] [address] Care Team Providers Care [place] Worker Name Role Phone Unavailable Primary Care Provider Unavailabl e Encounter Details Date Type Department Care Team (Latest Contact Info) Description 08/03/2016 Abstract [facility] Medical Group Social History Tobacco [...] st Contact Info) Description 11/14/2024 8:00 AM INCOME TAX ANALYST Office Visit [facility] Medical [facility] Multispecialty Care - [facility] 3 [facility], [address] [place] [address] Montserrat Oliver, OB/GYN NURSE 3 [facility] [address] [place] [address] 12/06/2024 9:30 AM INCOME TAX ANALYST Appointment [facility] Open MRI [address] [place] [address] [place] [address] [address] [place] [address] 03/02/2025 3:20 PM CDT Office Visit [facility] Medical Group Family & Internal Medicine - [place] [address] [place] [address] [place] [address] [facility]. [address] [place] [address] documented as of this encounter Visit Diagnoses Not on filedocumented in this encounter
--- OUTSIDE RECORDS SUMMARY | 2024-11-13 17:15 | XMS_ITS | Encounter Summary ---
Author Organization [facility] Address [address] [place] [address]. [place] [address] [place] [address] Care Team Providers Care Felt Hat Steamer Name Role Phone Unavailable Primary Care Provider Unavailabl e Encounter Details Date Type Department Care Team (Latest Contact Info) Description 01/31/2018 Abstract [facility] Medical Group [...] st Contact Info) Description 11/14/2024 8:00 AM FELLING MACHINE OPERATOR Office Visit [facility] Medical [facility] Multispecialty Care - [facility] [address] [facility], [address] [place] [address] Montserrat Oliver, VP INTEGRITY [address] [facility] [address] [place] [address] 12/06/2024 9:30 AM FELLING MACHINE OPERATOR Appointment [facility] Open MRI [address] [place] [address] [place] [address] [address] [place] [address] 03/02/2025 3:20 PM CDT Office Visit [facility] Medical Group Family & Internal Medicine - [place] [address] [place] [address] [place] [address] [facility]. [address] [place] [address] documented as of this encounter Visit Diagnoses Not on filedocumented in this encounter
--- OUTSIDE RECORDS SUMMARY | 2024-11-13 17:15 | XMS_ITS | Encounter Summary ---
Author Organization [facility] Address [address] [place] [address]. [place], [place] [address] [place] [address] Care Team Providers Care Ruby On Rails Software Developer Name Role Phone Unavailable Primary Care Provider Unavailabl e Encounter Details Date Type Department Care Team (Latest Contact Info) Description 12/25/2015 Abstract [facility] Medical Group , Kings Nunez MD Social History Tobacco Use Types Packs/Day Years Used Date Smoking Tobacco: Never Assessed Comments Unknown Sex and Gender Information Value Date Recorded Sex Assigned at Not on file Legal Sex Female 8:16 PM CDT Gender Identity Not on file Sexual Orientation Not on file documented as of this encounter Miscellaneous Notes * Letter - Nitza Young MD - 12/24/2015 12:00 AM CST [place] [address] Patient: HANS PASCUAL Med Rec#: [id number] Birthdate: 1965 Admit/Svce Date: 12/23/2015 Disch Date: Attending Md: NITZA YOUNG MD CHART DOCUMENT 12/24/2015 Nitza Young M.D. RE: August Pascualwarren : [address] Young: This patient was seen for 11 visits for treatment of her bilateral hip pain/iliac crest pain. Treatment consisted of modalities, stretching and progressive strengthening exercises including instruction in home exercise program and general patient education. Letha reports that she still continues to have pain in the iliac crest region but is unsure if her arthritis and the cold weather have contributed to the ongoing pain. She does report that she feels her strength and flexibility have improved and states that it is easier for her to get up and down from chairs now. She does report she continues to notice the pain when rolling in bed at night. We have seen improvement overall in her strength and flexibility. Her hamstring flexibility now in the 90/90 position is at -15 degrees bilaterally compared to initially -25 degrees and her rectus femoris flexibility is improved to 95 degrees compared to initially 90 degrees. We have also seen some improvements in the strength of her hip musculature. The strength of her iliopsoas today measured bilaterally 3+/5 and in sitting her hip flexor strength bilaterally measured 4+/5. Her glut medius strength was bilaterally 4+/5, hip extensors left 4/5 and right 4-/5 and hip abductors left 4/5 and right 4-/5. Letha has been instructed in home exercise program which she is independent with. She has made progress towards her goals however not fully achieved them. Goal #1 for having decreased pain such that she rates it at its worst a 3/10 has not been met. Goal #2 was partially met for improved strength. Goal #3 was met for improving hamstring flexibility by 10 degrees but partially met for improving rectus femoris and hip flexor flexibility by 10 degrees. Goal #4 was met for being independent in HEP. At this time, we have no further visits planned. Letha would like to hold PT at this time and stated she will contact you regarding a followup visit but will continue with her HEP on her own. If you have any questions regarding this patient, please contact me at extension [phone]. Thank you for this referral. Sincerely, Electronically Signed by Pippa Zamudio P.T. 12/26/2015 01:30 P BM/sp 12/24/2015 12/25/2015 09:31 A Job No: [id number] Doc No: [id number] cc: documented in this encounter Plan of Treatment Upcoming Encounters Date Type Department Care Team (Late st Contact Info) Description 11/14/2024 8:00 AM STONE FINISHER Office Visit [facility] Medical Group Multispecialty Care - [address], [address] [place] [address] Montserrat Oliver, DOREEN [address] [facility] [address] [place] [address] 12/06/2024 9:30 AM STONE FINISHER Appointment [facility] Open MRI [address] [facility] [facility] [place] [address] [place] [address] [address] [place] [address] 03/02/2025 3:20 PM CDT Office Visit [facility] Medical Group Family & Internal Medicine - [address] [phone] [place] [address] [address] [place] [address] documented as of this encounter Visit Diagnoses Not on filedocumented in this encounter
--- OUTSIDE RECORDS SUMMARY | 2024-11-13 17:15 | XMS_ITS | Encounter Summary ---
Author Organization [facility] Address [address] [place] [address]. [place] [address] [place] [address] Care Team Providers Care Oyster Opener Name Role Phone Unavailable Primary Care Provider Unavailabl e Encounter Details Date Type Department Care Team (Latest Contact Info) Description 03/26/2014 Abstract [facility] Medical Group Social History Tobacco Use [...] st Contact Info) Description 11/14/2024 8:00 AM BAND SHOVER Office Visit [facility] Medical [facility] Multispecialty Care - [facility] [address] [facility], [address] [place] [address] Montserrat Oliver, RAG PRODUCTION WORKER [address] [facility] [address] [place] [address] 12/06/2024 9:30 AM BAND SHOVER Appointment [facility] Open MRI [address] [place] [address] [place] [address] [address] [place] [address] 03/02/2025 3:20 PM CDT Office Visit [facility] Medical Group Family & Internal Medicine - [place] [address] [place] [address] [place] [address] [facility]. [address] [place] [address] documented as of this encounter Visit Diagnoses Not on filedocumented in this encounter
--- OUTSIDE RECORDS SUMMARY | 2024-11-13 17:15 | XMS_ITS | Encounter Summary ---
Author Organization [facility] Address [address] [place] [address]. [place] [address] [place] [address] Care Team Providers Care Vulcanizing Press Operator Name Role Phone Jaspreet Pearl MD Primary Care Provider Felipe archerelijah Encounter Details Date Type Department Care Team (Late st Contact Info) Description 06/14/2015 Abstract [facility] Diagnostic Imaging [address] [place], [place] [address] Stalin Calderón MD [address] [id number] Social History Tobacco Use Types Packs/Day Years [...] (Late Contact Info) Description 11/14/2024 8:00 AM DIE CUTTER OPERATOR Office Visit [facility] Medical Group Multispecialty Care - [facility] 3 [facility], [address] [place] [address] Montserrat Oliver NP 3 [facility] [address] [place] [address] 12/06/2024 9:30 AM DIE CUTTER OPERATOR [facility] [address] [place] [address] [place] [address] [facility] [place], [place] [address] 03/02/2025 3:20 PM CDT Office Visit [facility] Medical Group Family & Internal Medicine [facility] [address] [place] [address] [place] [address] [facility]. [address] [place] [address] documented as of this encounter Visit Diagnoses Diagnosis Other screening mammogram documented in this encounter Care Teams Vulcanizing Press Operator Relationship Specialty Start Date End Date Jaspreet Pearl MD PCP - General INTERNAL MEDICINE 11/30/18 02/18/23 documented as of this encounter
--- OUTSIDE RECORDS SUMMARY | 2024-11-13 17:15 | XMS_ITS | Encounter Summary ---
Author Organization [facility] Address [address] [place] [address]. [place] [address] [place] [address] Care Team Providers Care Bottle Line Worker Name Role Phone Unavailable Primary Care Provider Unavailabl e Encounter Details Date Type Department Care Team (Late st Contact Info) Description 03/17/[address] [facility] Medical Group Family & Internal Medicine [facility] [address] [place] [address] [place] [address] [place], [place] [id number] Social History Tobacco Use Types Packs/Day Years Used Date Smoking Tobacco: Never Assessed Comments Unknown Sex and Gender Information Value Date Recorded Sex Assigned at Not on file Legal Sex Female 8:16 PM CDT Gender Identity Not on file Sexual Orientation Not on file documented as of this encounter Last Filed Vital Signs Vital Sign Reading Time Taken Comments Blood Pressure 110/62 03/17/2018 1:21 PM CDT Pulse 83 03/17/2018 1:21 PM CDT Temperature - - Respiratory Rate - - Oxygen Saturation - - Inhaled Oxygen Concentration - - Weight 78.5 kg (173 lb) 03/17/2018 1:21 PM CDT Height 170.2 cm (5' 7 ) 03/17/2018 1:21 PM CDT Body Mass Index 27.1 03/17/2018 1:21 PM CDT documented in this encounter Progress Notes * Jes Reid NP - 03/17/2018 4:24 PM CDT Verified Results *Rapid Strep Test In Office 17Mar2018:50PM Jes Reid Test Name Result Flag Reference *Rapid Strep In Office Presumptive Negative Internal QC Verified Yes * Jes Reid NP - 03/17/2018 1:20 PM CDT Reason For Visit Reason For Visit: Acute Visit Chief Complaint Wednesday c/o sore throat, cough on Wednesday, lost voice Wednesday. productive cough, sore throat, hoarsevoice, fatigue. History of Present Illness HPI Free Text: States she just had strep throat a few weeks ago and was given an antibiotic and states she did take the entire antibiotic. States her throat is hurting again and started on Wednesday. States she has been coughing up green phlegm and the cough is what is really bothering her. States she lost her voiceon Wednesday, states she does tend to get laryngitis about once per year. States she has tried NyQuil and benzonatate and nothing is helping her cough. Sore Throat: Hans Pascual presents with complaints of sudden onset of constant episodes of moderate bilateral sore throat, described as aching. Episodes started about 4 days ago. She is currently experiencing sore throat. Symptoms are improved by OTC throat lozenges, but not by antihistamines, decongestants and drinking liquids. Symptoms are made worse by swallowing liquids, swallowing solids and dry environment. Symptoms are unchanged. Pertinent Medical History: recurrent strep throat. Associated symptoms include swollen glands, but no dysphagia, no odynophagia, no postnasal drainage, no myalgias, no drooling, no stridor, no fever, no chills, no neck stiffness, no ear pain, no facial pain, no abdominal pain, no nausea, no vomiting, no rash, no anorexia and no fatigue. The patient presents with complaints of sudden onset of constant episodes of mild bilateral nasal congestion. Episodes started 2 days ago. She is currently experiencing nasal congestion. Her symptomsare caused by no known event. Symptoms are unchanged. The patient presents with complaints of gradual onset of intermittent episodes of moderate bilateral frontal headache, described as aching, non-radiating. Episodes started about 4 days ago. She is currently experiencing headache. Symptoms are unchanged. The patient presents with complaints of sudden onset of constant episodes of severe hoarseness. Episodes started about 3 days ago. She is currently experiencing hoarseness. Her symptoms are caused byupper respiratory infection. Symptoms are improved by vocal rest. Symptoms are unchanged. The patient presents with complaints of gradual onset of constant episodes of moderate cough, described as hacking. Episodes started about 4 days ago. Symptoms are improved by humidified air, cough drops and sitting up, but not by warm weather and cough medicine. Symptoms are unchanged. Cough: Hans Pascual presents with complaints of gradual onset of intermittent episodes of moderate cough, described as hacking and productive. Episodes started about 4 days ago. Her symptoms are caused by no known event. Symptoms are improved by humidified air and cough drops. Symptoms are made worse by lying down. Symptoms are unchanged. Risk Factors: impaired immunity. Associated symptoms include sore throat, hoarseness and headache, but no dyspnea, no wheezing, no chills, no fever, no runny nose, no stuffy nose, no myalgias, no pleuritic chest pain, no chest pain,no vomiting, no heartburn, no postnasal drainage, no mouth breathing, no noisy breathing, no rapid breathing, no painful swallowing, no eye itching, no nose itching and no night sweats. Review of Systems See HPI for pertinent positives. Constitutional: feeling poorly and feeling tired, but no fever, no chills and no headache. ENT: sore throat and hoarseness, but no earache and no nasal discharge. Cardiovascular: Normal, no chest pain and no palpitations. Respiratory: cough and wheezing, but no shortness of breath. Gastrointestinal: Normal, no abdominal pain, no vomiting and no nausea. Genitourinary: Normal. Integumentary: Normal. Musculoskeletal: Normal. Neurological: Normal. Psychiatric: Normal. Active Problems 1. Amenorrhea (626.0) (N91.2) 2. Anxiety (300.00) (F41.9) 3. Arthritis (716.90) (M19.90) 4. Esophageal reflux (530.81) (K21.9) 5. Inflammatory arthritis (714.9) (M19.90) 6. Insomnia (780.52) (G47.00) 7. Irritable bowel syndrome (564.1) (K58.9) 8. Polyarthritis (716.50) (M13.0) 9. Wears glasses (V49.89) (Z97.3) Past Medical History 1. History of Hip pain, left (719.45) (M25.552) 2. History of acute bronchitis (V12.69) (Z87.09) 3. History of acute pharyngitis (V12.69) (Z87.09) 4. History of ulcerative colitis (V12.79) (Z87.19) 5. History of Leg pain, posterior, right (729.5) (M79.604) 6. History of Oral ulcer (528.9) (K12.1) Surgical History 1. History of Colonoscopy 2. [...] No illicit drug use ?? 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 Dicyclomine HCl - 20 MG Oral Tablet; TAKE 1 TABLET BY MOUTH EVERY 6 HOURS NEEDED; Therapy: [id number] to (Evaluate:69Uwy1599) Requested for: 28Feb2018; Last Rx:28Feb2018 Ordered Rx By: Ariane Solares; Dispense: 30 Days ; #:120 Tablet; Refill: 2; For: Irritable bowel syndrome; EMA= N; Verified Transmission to [facility] Last Updated By: Crystal Tafyoa; 02/28/20188:24:37 AM 2. Enbrel 50 MG/ML Subcutaneous Solution Prefilled Syringe; INJECT 50MG ONCE A WEEK; Therapy: 60Uhf9469 to (Evaluate:72Ceb8339) Recorded Dispense: 28 Days ; #: Sufficient ML; Refill: 0; For: Inflammatory arthritis; EMA = N; Record; LastUpdated By: Argelia Chan; 02/23/2017 2:22:47 PM 3. Folic Acid 1 MG Oral Tablet; TAKE 1 TABLET DAILY; Therapy: 54Ude1192 to (Evaluate:20Srd4485) Recorded Dispense: 30 Days ; #:30 Tablet; Refill: 3; EMA = Y; Record; Last Updated By: Lashaun Kathleen; 12/04/2014 2:26:01 PM 4. Methotrexate 2.5 MG Oral Tablet; TAKE 8 TABLET Weekly; Therapy: 28Feb2018 to Recorded Dispense: 0 Days ; #: Sufficient Tablet; Refill: 0; EMA = N; Record; Last Updated By: Loreto Mendoza; 02/28/2018 8:03:30 AM 5. MiraLax Oral Packet; MIX 1 PACKET IN 8 OUNCES OF LIQUID AND DRINK ONCE DAILY. prn; Therapy: (Recorded:30Cii5401) to Recorded Dispense: 15 Days ; #:15 Packet; Refill: 0; For: Irritable bowel syndrome; EMA = N; Record; Last Updated By: Sherin Abdi; 03/17/2018 1:27:46 PM 6. Multi-Vitamins TABS; TAKE 2 TABLET Daily; Therapy: (Recorded:25Bvv0161) to Recorded Dispense: 0 Days ; #: Sufficient Tablet; Refill: 0; EMA = N; Record; Last Updated By: Yohana Rodriguez;06/26/2015 8:33:56 AM 7. Nabumetone 500 MG Oral Tablet; TAKE 2 TABLET TWICE DAILY; Therapy: 36Yqq3242 to Recorded Dispense: 0 Days ; #: Sufficient Tablet; Refill: 0; For: Inflammatory arthritis; EMA = N; Record; Last Updated By: Yohana Rodriguez; 10/18/2015 8:38:42 AM 8. [place]-3 Complex 192-251-11 MG-MG-UNIT Oral Capsule; Take one cap daily; Therapy: (Recorded:04Dec2014) to Recorded Dispense: 0 Days ; #: Sufficient Capsule; Refill: 0; EMA = N; Record; Last Updated By: Lashaun Kathleen; 12/04/2014 2:26:00 PM 9. Premarin 0.625 MG/GM Vaginal Cream; Insert 0.5 gram 3 times weekly at hs; Therapy: 68Dvv7158 to (Evaluate:13Gze9689) Recorded Dispense: 0 Days ; #: Sufficient X 30 GM Tube; Refill: 0; EMA = N; Record; Last Updated By: Lashaun Kathleen; 12/04/2014 2:26:01 PM Allergies 1. Levaquin TABS Hallucinations; Nausea; Updated By: Loreto Mendoza; 02/28/2018 8:03:53 AM Vitals Recorded: 17Mar2018 01:21PM Temperature 98.4 F Heart Rate 83 Respiration 16 Systolic 110 Diastolic 62 O2 Saturation 98 Height 5 ft 7 in Weight 173 lb BMI Calculated 27.1 BSA Calculated 1.9 Physical Exam Constitutional General appearance: Abnormal. acutely ill and appears tired, but well developed, well nourished, clothing appropriate and well groomed. Eyes Conjunctiva and lids: No swelling, erythema or discharge. Pupils and irises: Equal, round and reactive to light. Ears, Nose, Mouth, and Throat External inspection of ears and nose: Normal. Otoscopic examination: Tympanic membranes translucent with normal light reflex. Canals patent without erythema. Oropharynx: Abnormal. Inspection of the oropharynx showed fully visible tonsils, uvula and soft palate (Mallampati class 1). Oral mucosa was normal. The palate examination showed no abnormalities. The tongue was normal. There was 1+ enlargement and erythema, but no swelling and no concretions of both tonsils no exudate. The posterior pharynx was erythematous, but did not have an exudate. Pulmonary Respiratory effort: No increased work of breathing or signs of respiratory distress. Auscultation of lungs: Abnormal. Auscultation of the lungs revealed decreased breath sounds diffusely and expiratory wheezing. Cardiovascular Auscultation of heart: Normal rate and rhythm, normal S1 and S2, without murmurs. Examination of extremities for edema and/or varicosities: Normal. Lymphatic Palpation of lymph nodes in neck: Abnormal. bilateral 1 cm tender, but soft anterior cervical node enlargement. Musculoskeletal Gait and station: Normal. Skin Skin and subcutaneous tissue: Normal without rashes or lesions. Neurologic Sensation: No sensory loss. Psychiatric Orientation to person, place, and time: Normal. Mood and affect: Normal. Results/Data *Rapid Strep Test In Office 17Mar2018 01:50PM FranklinJes Test Name Result Flag Reference *Rapid Strep In Office Presumptive Negative Internal QC Verified Yes Assessment 1. Cough in adult (786.2) (R05) 2. URI, acute (465.9) (J06.9) 3. Laryngitis (464.00) (J04.0) Plan Cough in adult 1. Hydrocod Polst-CPM Polst ER 10-8 MG/5ML Oral Suspension Extended Release (Tussionex Pennkinetic ER); 5 ml by mouth every 12 hours for cough Rx By: Jes Reid; Dispense: 0 Days ; #:60 Milliliter; Refill: 0; For: Cough in adult; EMA = N; Print Rx Formulary Override Reason: Drug is not indicated for Patient condition URI, acute 2. Cefuroxime Axetil 500 MG Oral Tablet; TAKE 1 TABLET EVERY 12 HOURS DAILY Rx By: Jes Reid; Dispense: 10 Days ; #:20 Tablet; Refill: 0; For: URI, acute; EMA = N; Verified Transmission to [facility]; Last Updated By: MicheletRooftop Down; 03/17/2018 2:17:41 PM Rapid strep negative. Cough medication as prescribed. Advised to rest voice, warm salt water garlges, tylenol as needed for pain/fever. Follow up in 1 week if no relief. Signatures Electronically signed by : Jes Reid APN; Mar 17 2018 2:19PM SILVER DESIGNER (Author) documented in this encounter Miscellaneous Notes * Letter - Jes Reid NP - 03/17/2018 1:20 PM CDT Hans Pascual may return to work on 03/18/18. She has been under my care for illness. . Hunter return without limitations.. She was out from 03/17/18. Electronically signed by : Jes Reid APN; Mar 17 2018 2:19PM SILVER DESIGNER (Author) documented in this encounter Plan of Treatment Upcoming Encounters Date Type Department Care Team (Late st Contact Info) Description 11/14/2024 8:00 AM SILVER DESIGNER Office Visit [facility] Multispecialty Care - [facility] [address] [facility], [address] [place] [phone] Montserrat Oliver DERMATOLOGY SALES REPRESENTATIVE [address] [place] [address] 12/06/2024 9:30 AM SILVER DESIGNER [facility] [address] [place] [address] [place] [address] [facility] [address] [place] [address] 03/02/2025 3:20 PM CDT Office Visit [facility] Medical Group Family & Internal Medicine - [address] [phone] [place] [address] [facility] [address] [place] [address] documented as of this encounter Procedures Procedure Name Priority Date/Time Associated Diagnosis Comments STREP A RAPID Routine 03/17/2018 1:50 PM CDT CULTURE STREP A Routine 03/17/2018 1:45 PM CDT documented in this encounter Results * STREP A RAPID (03/17/2018 1:50 PM CDT) RAPID STREP TEST Presumptive Negative [facility] TO [facility]IC CONVERSION Internal Control: Yes [facility] TO [facility] CONVERSION 03/17/2018 1:50 PM CDT 03/17/2018 1:50 PM CDT Narrative [facility] TO [facility] CONVERSION - 03/17/2018 1:50 PM CDT [id number] 4:24PM by Jes Reid: ??patient was notified in office. denise Result Communication: No patient communication needed at this time us Jes Reid DERMATOLOGY SALES REPRESENTATIVE MICROBIOLOGY - GENERAL GERA DAVID Final Result [facility] TO [facility] CONVERSION * CULTURE STREP A (03/17/2018 1:45 PM CDT) THROAT CULTURE STREP A ONLY SPECIMEN DESCRIPTION ? - THROAT SPECIAL REQUESTS ? - NO SPECIAL REQUEST CULTURE ?- NO STREPTOCOCCUS PYOGENES (GROUP A) ISOLATED REPORT STATUS ?- FINAL 03/20/2018 [facility] TO [facility] CONVERSION 03/17/2018 1:45 PM CDT 03/17/2018 1:45 PM CDT Narrative [facility] TO EPIC CONVERSION - 03/20/2018 8:28 AM CDT Result Communication: Call patient with results us Jes Reid NP MICROBIOLOGY - GENERAL GERA DAVID Final Result Performing Organization Address [facility] de Phone Number [facility] TO EPIC CONVERSION documented in this encounter Visit Diagnoses Not on filedocumented in this encounter
--- OUTSIDE RECORDS SUMMARY | 2024-11-13 17:15 | XMS_ITS | Encounter Summary ---
Author Organization [facility] Address [address] [place] [address]. [place] [address] [place] [address] Care Team Providers Care Grave Cleaner Name Role Phone Jaspreet Pearl MD Primary Care Provider Felipe rangel Encounter Details Date Type Department Care Team (Late st Contact Info) Description 09/16/2006 Abstract [facility] [address] [place] [address] , Generic Conversion, Social History Tobacco Use [...] (Late Contact Info) Description 11/14/2024 8:00 AM BULK SYSTEM OPERATOR Office Visit [facility] Medical Group Multispecialty Care - [facility] 3 [facility], [address] [place] [address] Montserrat Oliver, DOREEN 3 [facility] [address] [place] [address] 12/06/2024 9:30 AM BULK SYSTEM OPERATOR Appointment [facility] Open MRI [address] [facility] [place] [address] [place] [address] [address] [place] [address] 03/02/2025 3:20 PM CDT Office Visit [facility] Medical Group Family & Internal Medicine - [address] [address] [place] [address] [place] [address] documented as of this encounter Visit Diagnoses Not on filedocumented in this encounter Care Teams Grave Cleaner Relationship Specialty Start Date End Date Jaspreet Pearl MD PCP - General INTERNAL MEDICINE 11/30/18 02/18/23 documented as of this encounter
--- OUTSIDE RECORDS SUMMARY | 2024-11-13 17:15 | XMS_ITS | Encounter Summary ---
Author Organization [facility] Address [address] [place] [address]. [place] [address] [place] [address] Care Team Providers Care Technician Chemical Cleaning Name Role Phone Jaspreet Pearl MD Primary Care Provider Felipe archerelijah Encounter Details Date Type Department Care Team (Late st Contact Info) Description 11/06/2010 Abstract [facility] [address] [place] [address] [place] [address] [facility] TI[address] [address] Social History Tobacco Use Types Packs/Day Years [...] Contact Info) Description 11/14/2024 8:00 AM WIRELESS SALES CONSULTANT Office Visit [facility] Medical Group Multispecialty Care - [facility] 3 [facility], [address] [place] [address] Montserrat Oliver NP 3 [facility] [address] [place] [address] 12/06/2024 9:30 AM WIRELESS SALES CONSULTANT [facility] [address] [place] [address] [place] [address] [facility] [place], [place] [address] 03/02/2025 3:20 PM CDT Office Visit [facility] Medical Group Family & Internal Medicine - [place] [address] [place] [address] [place] [address] [facility] [address] [place] [id number] documented as of this encounter Visit Diagnoses Diagnosis Other malaise and fatigue documented in this encounter Care Teams Technician Chemical Cleaning Relationship Specialty Start Date End Date Jaspreet Pearl MD PCP - General INTERNAL MEDICINE 11/30/18 02/18/23 documented as of this encounter
--- OUTSIDE RECORDS SUMMARY | 2024-11-13 17:15 | XMS_ITS | Encounter Summary ---
Author Organization [facility] Address [address] [place] [address]. [place] [address] [place] [address] Care Team Providers Care Foreign Law Consultant Name Role Phone Jaspreet Pearl MD Primary Care Provider Felipe archerelijah Encounter Details Date Type Department Care Team (Late st Contact Info) Description 06/06/2012 Abstract [facility] [address] [address], [place] [address] Stalin Calderón MD [address] [id number] Social History Tobacco Use Types Packs/Day Years [...] st Contact Info) Description 11/14/2024 8:00 AM PRODUCTION TOOL ENGINEER Office Visit [facility] Medical Group Multispecialty Care - [facility] 3 [facility], [address] [place] [address] Montserrat Oliver NP 3 [facility] [address] [place] [address] 12/06/2024 9:30 AM PRODUCTION TOOL ENGINEER Appointment [facility] [address] [place] [address] [place] [address] [facility] [address] [place], [place] [address] 03/02/2025 3:20 PM CDT Office Visit [facility] Medical Group Family & Internal Medicine [facility] [address] [place] [address] [place] [address] [facility]. [address] [place] [address] documented as of this encounter Visit Diagnoses Diagnosis Other screening mammogram documented in this encounter Care Teams Foreign Law Consultant Relationship Specialty Start Date End Date Jaspreet Pearl MD PCP - General INTERNAL MEDICINE 11/30/18 02/18/23 documented as of this encounter
--- OUTSIDE RECORDS SUMMARY | 2024-11-13 17:15 | XMS_ITS | Encounter Summary ---
Author Organization [facility] Address [address] [place] [address]. [place] [address] [place] [address] Care Team Providers Care Incident Handler Name Role Phone Jaspreet Pearl MD Primary Care Provider Felipe rangel Encounter Details Date Type Department Care Team (Late st Contact Info) Description 04/23/2008 Abstract [facility] [address] [place] [address] Yahir Ramirez MD [address] [facility] [address] [place] [address] Social History Tobacco Use Types [...] st Contact Info) Description 11/14/2024 8:00 AM GAS APPLIANCE ADJUSTER Office Visit [facility] Medical Group Multispecialty Care - [facility] 3 [facility], [address] [place] [address] Montserrat Oliver NP 3 [facility] [address] [place] [address] 12/06/2024 9:30 AM GAS APPLIANCE ADJUSTER [facility] [address] [place] [address] [place] [address] [facility]. [address] [place], [place] [address] 03/02/2025 3:20 PM CDT Office Visit [facility] Medical Group Family & Internal Medicine [facility] [address] [place] [address] [place] [address] [facility]. [address] [place] [address] documented as of this encounter Visit Diagnoses Not on filedocumented in this encounter Care Teams Incident Handler Relationship Specialty Start Date End Date Jaspreet Pearl MD PCP - General INTERNAL MEDICINE 11/30/18 02/18/23 documented as of this encounter
--- OUTSIDE RECORDS SUMMARY | 2024-11-13 17:15 | XMS_ITS | Encounter Summary ---
Author Organization [facility] Address [address] [place] [address]. [place] [address] [place] [address] Care Team Providers Care Pyrotechnic Assembler Name Role Phone Unavailable Primary Care Provider Unavailabl e Encounter Details Date Type Department Care Team (Latest Contact Info) Description 08/02/2017 Abstract [facility] Medical Group Social History Tobacco Use [...] st Contact Info) Description 11/14/2024 8:00 AM FRAME STYLIST Office Visit [facility] Medical [facility] Multispecialty Care - [facility] 3 [facility], [address] [place] [address] Montserrat Oliver, COACH MECHANIC 3 [facility] [address] [place] [address] 12/06/2024 9:30 AM FRAME STYLIST Appointment [facility] Open MRI [address] [place] [address] [place] [address] [address] [place] [address] 03/02/2025 3:20 PM CDT Office Visit [facility] Medical Group Family & Internal Medicine - [place] [address] [place] [address] [place] [address] [facility]. [address] [place] [address] documented as of this encounter Visit Diagnoses Not on filedocumented in this encounter
--- OUTSIDE RECORDS SUMMARY | 2024-11-13 17:15 | XMS_ITS | Encounter Summary ---
Author Organization [facility] Address [address] [place] [address]. [place] [address] [place] [address] Care Team Providers Care Link Trainer Maintenance Worker Name Role Phone Unavailable Primary Care Provider Unavailabl e Encounter Details Date Type Department Care Team (Late st Contact Info) Description 10/18/2015 Abstract [facility] Medical Group Family & Internal Medicine [facility] [address] [place] [address] [place] [id number] [place] [id number] Social History Tobacco Use Types Packs/Day Years Used Date Smoking Tobacco: Never Assessed Comments Unknown Sex and Gender Information Value Date Recorded Sex Assigned at Not on file Legal Sex Female 8:16 PM CDT Gender Identity Not on file Sexual Orientation Not on file documented as of this encounter Last Filed Vital Signs Vital Sign Reading Time Taken Comments Blood Pressure 106/58 10/18/2015 8:32 AM PERFECT BIND MACHINE OPERATOR Pulse 82 10/18/2015 8:32 AM PERFECT BIND MACHINE OPERATOR Temperature - - Respiratory Rate - - Oxygen Saturation - - Inhaled Oxygen Concentration - - Weight 79.8 kg (176 lb) 10/18/2015 8:32 AM PERFECT BIND MACHINE OPERATOR Height 170.2 cm (5' 7 ) 10/18/2015 8:32 AM PERFECT BIND MACHINE OPERATOR Body Mass Index 27.57 10/18/2015 8:32 AM PERFECT BIND MACHINE OPERATOR documented in this encounter Progress Notes * Clement Young MD - 10/18/2015 8:30 AM CST Chief Complaint Pt here with c/o bilateral hip pain. History of Present Illness Hip Pain: [facility] presents with complaints of hip pain. Associated symptoms include stiffness, but no swelling, no localized bruising, no warmth, no decreased range of motion, no difficulty flexing the hip joint, no difficulty rotating the hip joint, no difficulty bearing weight, no fever, no low back pain, no numbness in the leg and no weakness of the leg. Review of Systems See HPI for pertinent positives. Constitutional: no fever and no recent weight loss. ENT: no sore throat. Cardiovascular: no intermittent leg claudication and no lower extremity edema. Respiratory: no shortness of breath and no cough. Gastrointestinal: no abdominal pain. Genitourinary: no dysuria. Integumentary: no skin rash. Musculoskeletal: joint pain and joint stiffness, but no joint swelling and no limb pain. Neurological: no limb weakness and no difficulty walking. Active Problems 1. Amenorrhea (626.0) (N91.2) 2. Anxiety (300.00) (F41.9) 3. Arthritis (716.90) (M19.90) 4. Esophageal reflux (530.81) (K21.9) 5. Inflammatory arthritis (714.9) (M19.90) 6. Insomnia (780.52) (G47.00) 7. Irritable bowel syndrome (564.1) (K58.9) 8. Polyarthritis (716.50) (M13.0) Past Medical History 1. History of Hip pain, left (719.45) (M25.552) 2. History of acute bronchitis (V12.69) (Z87.09) 3. History of fatigue (V13.89) (Z87.898) 4. History of fever (V13.89) (Z87.898) 5. History of ulcerative colitis (V12.79) (Z87.19) 6. History of Pain in joint (719.40) (M25.50) Surgical History 1. History of Gallbladder Surgery Family History Mother 1. No pertinent family history Social History ?? Never a smoker Current Meds 1. [facility] Vitamin B-12 1000 MCG Oral Tablet; TAKE 1 TABLET DAILY DIRECTED; Therapy: (Recorded:65Dmw9539) to Recorded Dispense: 0 Days ; #: Sufficient Tablet; Refill: 0; EMA = N; Record; Last Updated By: Yohana Rodriguez;06/26/2015 8:33:57 AM 2. Dicyclomine HCl - 20 MG Oral Tablet; TAKE 1 TABLET EVERY 6 HOURS NEEDED; Therapy: 86Qis5995 to (Evaluate:30Rrs3210) Requested for: 98Lel1869; Last Rx:[id number] Ordered Rx By: Clement Young; Dispense: 10 Days ; #:40 Tablet; Refill: 0; For: Irritable bowel syndrome;EMA = N; Verified Transmission to [employer]; Last Updated By: MicheletFlint and Tinder; 06/26/2015 9:19:21 AM 3. Enbrel 50 MG/ML Subcutaneous Solution Prefilled Syringe; INJECT 50MG ONCE A WEEK; Therapy: 05Dze8309 to (Evaluate:76Cjr8777) Recorded Dispense: 28 Days ; #: Sufficient ML; Refill: 0; EMA = N; Record; Last Updated By: Yohana Rodriguez; 06/26/2015 8:33:57 AM 4. Folic Acid 1 MG Oral Tablet; TAKE 1 TABLET DAILY; Therapy: 89Ayv7020 to (Evaluate:54Kma4144) Recorded Dispense: 30 Days ; #:30 Tablet; Refill: 3; EMA = Y; Record; Last Updated By: Lashaun Kathleen; 12/04/2014 2:26:01 PM 5. Methotrexate Sodium 1 GM Injection Solution Reconstituted; INJECT 0.8 ML Weekly; Therapy: 58Anq8296 to Recorded Dispense: 0 Days ; #: Sufficient Solution Reconstituted; Refill: 0; For: Inflammatory arthritis; EMA = N; Record; Last Updated By: Yohana Rodriguez; 10/18/2015 8:38:42 AM 6. MiraLax Oral Packet; MIX 1 PACKET IN 8 OUNCES OF LIQUID AND DRINK ONCE DAILY; Therapy: (Recorded:04Dec2014) to Recorded Dispense: 15 Days ; #:15 Packet; Refill: 0; EMA = N; Record; Last Updated By: Lashaun Kathleen; 12/04/2014 2:26:00 PM 7. Multi-Vitamins TABS; TAKE 2 TABLET Daily; Therapy: (Recorded:25Swr3450) to Recorded Dispense: 0 Days ; #: Sufficient Tablet; Refill: 0; EMA = N; Record; Last Updated By: Yohana Rodriguez;06/26/2015 8:33:56 AM 8. Nabumetone 500 MG Oral Tablet; TAKE 2 TABLET TWICE DAILY; Therapy: 73Rfa6208 to Recorded Dispense: 0 Days ; #: Sufficient Tablet; Refill: 0; For: Inflammatory arthritis; EMA = N; Record; Last Updated By: Yohana Rodriguez; 10/18/2015 8:38:42 AM 9. White Salmon-3 Complex 192-251-11 MG-MG-UNIT Oral Capsule; Take one cap daily; Therapy: (Recorded:64Ysp4383) to Recorded Dispense: 0 Days ; #: Sufficient Capsule; Refill: 0; EMA = N; Record; Last Updated By: Lashaun Kathleen; 12/04/2014 2:26:00 PM 10. Premarin 0.625 MG/GM Vaginal Cream; Insert 0.5 gram 3 times weekly at hs; Therapy: 02Aug2014 to (Evaluate:10Iqv0082) Recorded Dispense: 0 Days ; #: Sufficient X 30 GM Tube; Refill: 0; EMA = N; Record; Last Updated By: Lashaun Kathleen; 12/04/2014 2:26:01 PM Allergies 1. Levaquin TABS Recorded By: Tamie Cosby; 09/23/2012 2:04:37 PM Vitals Recorded: 07Buu7211 08:32AM Heart Rate 82 Respiration 16 Systolic 106 Diastolic 58 O2 Saturation 98 Height 5 ft 7 in Weight 176 lb BMI Calculated 27.57 BSA Calculated 1.92 Physical Exam Constitutional General appearance: No acute distress, well appearing and well nourished. Eyes Conjunctiva and lids: No swelling, erythema or discharge. Pupils and irises: Equal, round and reactive to light. Pulmonary Respiratory effort: No increased work of breathing or signs of respiratory distress. Auscultation of lungs: Clear to auscultation. Cardiovascular Auscultation of heart: Normal rate and rhythm, normal S1 and S2, without murmurs. Examination of extremities for edema and/or varicosities: Normal. Abdomen Abdomen: Non-tender, no masses. Liver and spleen: No hepatomegaly or splenomegaly. Lymphatic Palpation of lymph nodes in neck: No lymphadenopathy. Musculoskeletal Gait and station: Normal. Digits and nails: Normal without clubbing or cyanosis. Inspection/palpation of joints, bones, and muscles: Abnormal. bilateral hip tenderness with range of motion and no decreased strength, neg merlin, fadir. Skin Skin and subcutaneous tissue: Normal without rashes or lesions. Neurologic Cranial nerves: Cranial nerves 2-12 intact. Reflexes: 2+ and symmetric. Sensation: No sensory loss. Psychiatric Orientation to person, place, and time: Normal. Mood and affect: Normal. Assessment 1. Arthritis (716.90) (M19.90) Plan Arthritis 1. TraMADol HCl - 50 MG Oral Tablet; Take one tab po BID prn Rx By: Clement Young; Dispense: 0 Days ; #:60 Tablet; Refill: 0; For: Arthritis; EMA = N; Print Rx 2. Physical Therapy Referral Outpatient pt with rheumatoid arthritis with hip and lower back pain please evaluate and treat Status: Need Information - Financial Authorization Requested for: [id number] Ordered; For: Arthritis; Ordered By: Clement Young Performed: Due: 70Yth3245 1) Hip pain: will start physical therapy and will give some tramadol during PT and advised to continue NSAID's and follow up after PT Signatures Electronically signed by : Clement Young M.D.; Oct 23 2015 7:43PM PERFECT BIND MACHINE OPERATOR (Author) documented in this encounter Plan of Treatment Upcoming Encounters Date Type Department Care Team (Late st Contact Info) Description 11/14/2024 8:00 AM PERFECT BIND MACHINE OPERATOR Office Visit [facility] Medical Group Multis[facility]ialty Care - [facility] 3 [facility], [address] [place] [phone] Montserrat Oliver NP 3 [facility] [address] [place] [address] 12/06/2024 9:30 AM PERFECT BIND MACHINE OPERATOR Appointment [facility] Open MRI [address] [place] [address] [place] [address] [address] [place] [address] 03/02/2025 3:20 PM CDT Office Visit [facility] Medical Group Family & Internal Medicine - [address] [address] Dayanara Plaza [place] [id number] [place] [address]. [address] [place] [address] documented as of this encounter Visit Diagnoses Not on filedocumented in this encounter
--- OUTSIDE RECORDS SUMMARY | 2024-11-13 17:15 | XMS_ITS | Encounter Summary ---
Author Organization [facility] Address [address] [place] [address]. [place] [address] [place] [address] Care Team Providers Care Rainbow Trout Farm Manager Name Role Phone Unavailable Primary Care Provider Unavailabl e Encounter Details Date Type Department Care Team (Latest Contact Info) Description 06/15/2016 Abstract [facility] Medical Group Social History Tobacco Use Types [...] Contact Info) Description 11/14/2024 8:00 AM SUPERVISOR INSPECTION Office Visit [facility] Medical [facility] Multispecialty Care - [facility] 3 [facility], [address] [place] [address] Montserrat Oliver, FINGER BUFFS ASSEMBLER 3 [facility] [address] [place] [address] 12/06/2024 9:30 AM SUPERVISOR INSPECTION Appointment [facility] Open MRI [address] [place] [address] [place] [address] [address] [place] [address] 03/02/2025 3:20 PM CDT Office Visit [facility] Medical Group Family & Internal Medicine - [place] [address] [place] [address] [place] [address] [facility]. [address] [place] [address] documented as of this encounter Visit Diagnoses Not on filedocumented in this encounter
--- OUTSIDE RECORDS SUMMARY | 2024-11-13 17:15 | XMS_ITS | Encounter Summary ---
Author Organization [facility] Address [address] [place] [address]. [place] [address] [place] [address] Care Team Providers Care Nurse Practitioner Hospitalist Name Role Phone Unavailable Primary Care Provider Unavailabl e Encounter Details Date Type Department Care Team (Late Contact Info) Description 03/23/2017 Abstract [facility] Family & Internal Medicine - [address] [address] García Hess MD [address] [place] [id number] Social History Tobacco Use Types Packs/Day Years [...] (Late Contact Info) Description 11/14/2024 8:00 AM POWDER MONKEY Office Visit [facility] Multispecialty Care - [facility] 3 [facility], [address] [place] [address] Montserrat Oliver NP 3 [facility] [address] [place] [address] 12/06/2024 9:30 AM POWDER MONKEY Appointment [facility] Open MRI [address] [place] [address] [place] [address] [address] [place] [address] 03/02/2025 3:20 PM CDT Office Visit [facility] Medical Group Family & Internal Medicine - [address] [address] [place] [address] [address] [place] [address] documented as of this encounter Visit Diagnoses Not on filedocumented in this encounter
--- OUTSIDE RECORDS SUMMARY | 2024-11-13 17:15 | XMS_ITS | Encounter Summary ---
Author Organization [facility] Address [address] [place] [address]. [place] [address] [place] [address] Care Team Providers Care Cargo Tank Mechanic Name Role Phone Unavailable Primary Care Provider Unavailabl e Encounter Details Date Type Department Care Team (Latest Contact Info) Description 11/10/2012 Abstract [facility] Medical Group Social History Tobacco Use Types [...] st Contact Info) Description 11/14/2024 8:00 AM PCT Office Visit [facility] Medical [facility] Multispecialty Care - [facility] 3 [facility], [address] [place] [address] Montserrat Oliver, HOME CARE MUSIC THERAPIST 3 [facility] [address] [place] [address] 12/06/2024 9:30 AM PCT Appointment Health system Open MRI [address] [place] [address] [place] [address] [address] [place] [address] 03/02/2025 3:20 PM CDT Office Visit [facility] Medical Group Family & Internal Medicine - [place] [address] [place] [address] [place] [address] [facility]. [address] [place] [address] documented as of this encounter Visit Diagnoses Not on filedocumented in this encounter
--- OUTSIDE RECORDS SUMMARY | 2024-11-13 17:15 | XMS_ITS | Encounter Summary ---
Author Organization [facility] Address [address] [place] [address]. [place] [address] [place] [address] Care Team Providers Care Line Erector Name Role Phone Unavailable Primary Care Provider Unavailabl e Encounter Details Date Type Department Care Team (Latest Contact Info) Description 09/30/2012 Abstract [facility] [place] [address] [address] Social History Tobacco Use Types Packs/Day Years Used Date Smoking Tobacco: Never Assessed Comments Unknown Sex and Gender Information Value Date Recorded Sex Assigned at Not on file Legal Sex Female 8:16 PM CDT Gender Identity Not on file Sexual Orientation Not on file documented as of this encounter Last Filed Vital Signs Vital Sign Reading Time Taken Comments Blood Pressure 124/76 09/30/2012 3:59 PM PROCESSING TECHNICIAN Pulse 77 09/30/2012 3:59 PM PROCESSING TECHNICIAN Temperature - - Respiratory Rate - - Oxygen Saturation - - Inhaled Oxygen Concentration - - Weight 70.8 kg (156 lb) 09/30/2012 3:59 PM PROCESSING TECHNICIAN Height 170.2 cm (5' 7 ) 09/30/2012 3:59 PM PROCESSING TECHNICIAN Body Mass Index 24.43 09/30/2012 3:59 PM PROCESSING TECHNICIAN documented in this encounter Progress Notes * RYLIE Mejia - 09/30/2012 3:45 PM CST Reason For Visit Reason For Visit: Acute Follow-Up Visit Chief Complaint Chief Complaint Free Text: She is here for f/u labs History of Present Illness HPI Free Text: Still having problems with fatigue Joint pain is some better. Review of Systems Focused-Female: Constitutional: feeling tired. ENT: normal. Cardiovascular: Normal. Respiratory: Normal. Gastrointestinal: Normal. Genitourinary: Normal. Integumentary: Normal. Musculoskeletal: joint stiffness. Neurological: Normal. Active Problems Amenorrhea 626.0 Past Medical History [...] Vitals Vital Signs [Data Includes: Current Encounter] 30Sep2012 03:59PM Heart Rate 77 Respiration 18 Systolic 124 Diastolic 76 BMI Calculated 24.48 BSA Calculated 1.82 Height 5 ft 7 in Weight 156 lb O2 Saturation 99 Physical Exam Constitutional General appearance: No acute [...] bilateral elbow, bilateral wrist, bilateral hand, bilateral hip and bilateral knee tenderness. Skin Skin and subcutaneous tissue: Normal without rashes or lesions. Neurologic Cranial nerves: Cranial nerves 2-12 intact. Reflexes: 2+ and symmetric. Sensation: No sensory loss. Psychiatric Orientation to person, place, and time: Normal. Mood and affect: Normal. Assessment 1. Diffuse Joint Pains (Arthralgias) 719.40 2. Fatigue 780.79 Plan Celebrex 200mg 1 daily with food for 3 weeks, Lab tests reviewed. copy of labs for patient. B12 500mg subling bid, FU in 10 days. Signatures Electronically signed by : JAIRO Muir; Nov 12 2012 8:51PM (Author) ESSING TECHNICIAN documented in this encounter Plan of Treatment Upcoming Encounters Date Type Department Care Team (Late st Contact Info) Description 11/14/2024 8:00 AM PROCESSING TECHNICIAN Office Visit [facility] Multispecialty Care - [address], [address] [place] [phone] Montserrat Oliver NP 3 [facility] [address] [place] [address] 12/06/2024 9:30 AM PROCESSING TECHNICIAN Appointment [facility] Open MRI [address] [place] [address] [place] [address] [place] [address] [place] [address] 03/02/2025 3:20 PM CDT Office Visit [facility] Family & Internal Medicine - [address] [address] [place] [address] [address] [place] [id number] documented as of this encounter Visit Diagnoses Not on filedocumented in this encounter
--- OUTSIDE RECORDS SUMMARY | 2024-11-13 17:15 | XMS_ITS | Encounter Summary ---
Author Organization [facility] Address [address] [place] [address]. [place] [address] [place] [address] Care Team Providers Care Matcher Operator Name Role Phone Unavailable Primary Care Provider Unavailabl e Encounter Details Date Type Department Care Team (Latest Contact Info) Description 11/17/2012 Abstract [facility] Medical Group Social History Tobacco Use [...] st Contact Info) Description 11/14/2024 8:00 AM SEAMLESS TUBE ROLLER Office Visit [facility] Medical [facility] Multispecialty Care - [facility] 3 [facility], [address] [place] [address] Montserrat Oliver, TEST ENGINEER 3 [facility] [address] [place] [address] 12/06/2024 9:30 AM SEAMLESS TUBE ROLLER Appointment [facility] Open MRI [address] [place] [address] [place] [address] [address] [place] [address] 03/02/2025 3:20 PM CDT Office Visit [facility] Medical Group Family & Internal Medicine - [place] [address] [place] [address] [place] [address] [facility]. [address] [place] [address] documented as of this encounter Visit Diagnoses Not on filedocumented in this encounter
--- OUTSIDE RECORDS SUMMARY | 2024-11-13 17:15 | XMS_ITS | Encounter Summary ---
Author Organization [facility] Address [address] [place] [address]. [place] [address] [place] [address] Care Team Providers Care School Laboratory Technician Name Role Phone Jaspreet Pearl MD Primary Care Provider Felipe rangel Encounter Details Date Type Department Care Team (Late st Contact Info) Description 09/05/2013 Abstract [facility] Diagnostic Imaging [address] [place] [address] Perez Cervantes MD [address] [place] [address] Social History Tobacco Use Types Packs/Day Years [...] st Contact Info) Description 11/14/2024 8:00 AM X RAY EQUIPMENT MECHANIC Office Visit [facility] Medical Group Multispecialty Care - [facility] 3 [facility], [address] [place] [address] Montserrat Oliver NP 3 [facility] [address] [place] [address] 12/06/2024 9:30 AM X RAY EQUIPMENT MECHANIC Appointment [facility] Open MRI [address] [place] [address] [place] [address] [facility] [place], [place] [address] 03/02/2025 3:20 PM CDT Office Visit [facility] Medical Group Family & Internal Medicine - [place] [address] [place] [address] [place] [address] [address] [place] [address] documented as of this encounter Visit Diagnoses Diagnosis Polyarthropathy or polyarthritis Unspecified polyarthropathy or polyarthritis, site unspecified documented in this encounter Care Teams School Laboratory Technician Relationship Specialty Start Date End Date Jaspreet Pearl MD PCP - General INTERNAL MEDICINE 11/30/18 02/18/23 documented as of this encounter
--- OUTSIDE RECORDS SUMMARY | 2024-11-13 17:15 | XMS_ITS | Encounter Summary ---
Author Organization [facility] Address [address] [place] [address]. [place] [address] [place] [address] Care Team Providers Care Urinalysis Technician Name Role Phone Unavailable Primary Care Provider Unavailabl e Encounter Details Date Type Department Care Team (Latest Contact Info) Description 12/29/2012 Abstract [facility] Medical Group Social History Tobacco Use [...] st Contact Info) Description 11/14/2024 8:00 AM BIOMEDICAL PHOTOGRAPHER Office Visit [facility] Medical [facility] Multispecialty Care - [facility] [address] [facility], [address] [place] [address] Montserrat Oliver, MOUNTED POLICE 3 [facility] [address] [place] [address] 12/06/2024 9:30 AM BIOMEDICAL PHOTOGRAPHER Appointment [facility] Open MRI [address] [place] [address] [place] [address] [address] [place] [address] 03/02/2025 3:20 PM CDT Office Visit [facility] Medical Group Family & Internal Medicine - [place] [address] [place] [address] [place] [address] [facility] [place] [address] documented as of this encounter Visit Diagnoses Not on filedocumented in this encounter
--- OUTSIDE RECORDS SUMMARY | 2024-11-13 17:15 | XMS_ITS | Encounter Summary ---
Author Organization [facility] Address [address] [place] [address]. [place] [address] [place] [address] Care Team Providers Care Trouble Locator Test Desk Name Role Phone Unavailable Primary Care Provider Unavailabl e Encounter Details Date Type Department Care Team (Latest Contact Info) Description 01/30/2016 Abstract [facility] [place] [address] [address] [place], [place] [id number] Social History Tobacco Use Types Packs/Day Years [...] st Contact Info) Description 11/14/2024 8:00 AM PRESSURIZATION MECHANIC Office Visit [facility] Multispecialty Care - [facility] 3 [facility], [address] [place] [address] Montserrat Oliver NP 3 [facility] [address] [place] [address] 12/06/2024 9:30 AM PRESSURIZATION MECHANIC Appointment [facility] Open MRI [address] [facility] [place] [address] [place] [address] [address] [place] [address] 03/02/2025 3:20 PM CDT Office Visit [facility] Medical Group Family & Internal Medicine - [place] [address] [place] [address] [place] [address] [facility] [place] [address] documented as of this encounter Visit Diagnoses Not on filedocumented in this encounter
--- OUTSIDE RECORDS SUMMARY | 2024-11-13 17:15 | XMS_ITS | Encounter Summary ---
Author Organization [facility] Address [address] [place] [address]. [place] [address] [place] [address] Care Team Providers Care Sheriff Officer Name Role Phone Unavailable Primary Care Provider Unavailabl e Encounter Details Date Type Department Care Team (Latest Contact Info) Description 09/03/2014 Abstract [facility] Medical Group Social History Tobacco Use Types [...] st Contact Info) Description 11/14/2024 8:00 AM ACCOUNTS RECEIVABLE EXECUTIVE Office Visit [facility] Medical [facility] Multispecialty Care - [facility] 3 [facility], [address] [place] [address] Montserrat Oliver, DISABILITIES SERVICES OFFICER 3 [facility] [address] [place] [address] 12/06/2024 9:30 AM ACCOUNTS RECEIVABLE EXECUTIVE Appointment [facility] Open MRI [address] [place] [address] [place] [address] [address] [place] [address] 03/02/2025 3:20 PM CDT Office Visit [facility] Medical Group Family & Internal Medicine - [place] [address] [place] [address] [place] [address] [facility]. [address] [place] [address] documented as of this encounter Visit Diagnoses Not on filedocumented in this encounter
--- OUTSIDE RECORDS SUMMARY | 2024-11-13 17:15 | XMS_ITS | Encounter Summary ---
Author Organization [facility] Address [address] [place] [address]. [place] [address] [place] [address] Care Team Providers Care Insurance Verification Rep Name Role Phone Jaspreet Pearl MD Primary Care Provider Felipe rangel Encounter Details Date Type Department Care Team (Late st Contact Info) Description 09/11/2006 Abstract [facility] CONVERSION [address] [place] [address] , Generic Conversion, Social History Tobacco Use [...] (Late Contact Info) Description 11/14/2024 8:00 AM TICKET CLERK Office Visit [facility] Medical Group Multispecialty Care - [facility] 3 [facility], [address] [place] [address] Montserrat Oliver, DOREEN 3 [facility] [address] [place] [address] 12/06/2024 9:30 AM TICKET CLERK Appointment [facility] Open MRI [address] [facility] [place] [address] [place] [address] [address] [place] [address] 03/02/2025 3:20 PM CDT Office Visit [facility] Medical Group Family & Internal Medicine - [address] [address] [place] [address] [place] [address] documented as of this encounter Visit Diagnoses Not on filedocumented in this encounter Care Teams Insurance Verification Rep Relationship Specialty Start Date End Date Jaspreet Pearl MD PCP - General INTERNAL MEDICINE 11/30/18 02/18/23 documented as of this encounter
--- OUTSIDE RECORDS SUMMARY | 2024-11-13 17:15 | XMS_ITS | Encounter Summary ---
Author Organization [facility] Address [address] [place] [address]. [place] [address] [place] [address] Care Team Providers Care Retirement Officer Name Role Phone Jaspreet Pearl MD Primary Care Provider Felipe rangel Encounter Details Date Type Department Care Team (Late st Contact Info) Description 11/30/2005 Abstract [facility] CONVERSION [address] [place] [address] , Generic Conversion, Social History Tobacco Use [...] (Late Contact Info) Description 11/14/2024 8:00 AM CREDIT REVIEW MANAGER Office Visit [facility] Medical Group Multispecialty Care - [facility] 3 [facility], [address] [place] [address] Montserrat Oliver, DOREEN 3 [facility] [address] [place] [address] 12/06/2024 9:30 AM CREDIT REVIEW MANAGER Appointment [facility] Open MRI [address] [facility] [place] [address] [place] [address] [address] [place] [address] 03/02/2025 3:20 PM CDT Office Visit [facility] Medical Group Family & Internal Medicine - [address] [address] [place] [address] [place] [address] documented as of this encounter Visit Diagnoses Not on filedocumented in this encounter Care Teams Retirement Officer Relationship Specialty Start Date End Date Jaspreet Pearl MD PCP - General INTERNAL MEDICINE 11/30/18 02/18/23 documented as of this encounter
--- OUTSIDE RECORDS SUMMARY | 2024-11-13 17:15 | XMS_ITS | Encounter Summary ---
Author Organization [facility] Address [address] [place] [address]. [place] [address] [place] [address] Care Team Providers Care Engineering Lab Technician Name Role Phone Jaspreet Pearl MD Primary Care Provider Felipe rangel Encounter Details Date Type Department Care Team (Late st Contact Info) Description 10/12/2007 Abstract [facility] CONVERSION [address] [facility] [place] [address] Efren Garcia, DEPARTMENT OF MATHEMATICS CHAIR [address] [place] [address] Social History Tobacco Use Types Packs/Day Years [...] Contact Info) Description 11/14/2024 8:00 AM MANAGER QUALITY COMPLIANCE Office Visit [facility] Medical Group Multispecialty Care - [facility] 3 [facility], [address] [place] [address] Montserrat Oliver, DOREEN 3 [facility] [address] [place] [address] 12/06/2024 9:30 AM MANAGER QUALITY COMPLIANCE Appointment [facility] Open MRI [address] [place] [address] [place] [address] [facility] [address]. [address] [place] [address] 03/02/2025 3:20 PM CDT Office Visit [facility] Medical Group Family & Internal Medicine [facility] [address] [place] [address] [place] [address] [facility] [address] [place], [place] [id number] documented as of this encounter Visit Diagnoses Not on filedocumented in this encounter Care Teams Engineering Lab Technician Relationship Specialty Start Date End Date Jaspreet Pearl MD PCP - General INTERNAL MEDICINE 11/30/18 02/18/23 documented as of this encounter
--- OUTSIDE RECORDS SUMMARY | 2024-11-13 17:15 | XMS_ITS | Encounter Summary ---
Author Organization [facility] Address [address] [place] [address]. [place] [address] [place] [address] Care Team Providers Care Machine Technician Name Role Phone Jaspreet Pearl MD Primary Care Provider Felipe archerelijah Encounter Details Date Type Department Care Team (Late st Contact Info) Description 06/22/2017 Abstract [facility] Diagnostic Imaging [address] [place] [address] Stalin Calderón MD [address] [id number] Social History Tobacco Use Types Packs/Day Years [...] st Contact Info) Description 11/14/2024 8:00 AM MATTRESS FILLER Office Visit [facility] Medical Group Multispecialty Care - [facility] 3 [facility], [address] [place] [address] Montserrat Oliver NP 3 [facility] [address] [place] [address] 12/06/2024 9:30 AM MATTRESS FILLER [facility] [address] [place] [address] [place] [address] [facility] [place], [place] [address] 03/02/2025 3:20 PM CDT Office Visit [facility] Medical Group Family & Internal Medicine - [place] [address] [place] [address] [place] [address] [facility] [place] [address] documented as of this encounter Visit Diagnoses Diagnosis Encounter for screening mammogram for malignant neoplasm of breast Other screening mammogram documented in this encounter Care Teams Machine Technician Relationship Specialty Start Date End Date Jaspreet Pearl MD PCP - General INTERNAL MEDICINE 11/30/18 02/18/23 documented as of this encounter
--- OUTSIDE RECORDS SUMMARY | 2024-11-13 17:15 | XMS_ITS | Encounter Summary ---
Author Organization [facility] Address [address] [place] [address]. [place] [address] [place] [address] Care Team Providers Care Cartography Supervisor Name Role Phone Unavailable Primary Care Provider Unavailabl e Encounter Details Date Type Department Care Team (Late st Contact Info) Description 02/09/2017 Abstract [facility] Medical Group Family & Internal Medicine [address] [address] García Hess MD [address] [place] [address] Social History Tobacco Use Types Packs/Day Years Used Date Smoking Tobacco: Never Assessed Comments Unknown Sex and Gender Information Value Date Recorded Sex Assigned at Not on file Legal Sex Female 8:16 PM CDT Gender Identity Not on file Sexual Orientation Not on file documented as of this encounter Last Filed Vital Signs Vital Sign Reading Time Taken Comments Blood Pressure 96/70 02/09/2017 1:45 PM CDT Pulse 66 02/09/2017 1:45 PM CDT Temperature - - Respiratory Rate - - Oxygen Saturation - - Inhaled Oxygen Concentration - - Weight 78.5 kg (173 lb) 02/09/2017 1:45 PM CDT Height 170.2 cm (5' 7 ) 02/09/2017 1:45 PM CDT Body Mass Index 27.1 02/09/2017 1:45 PM CDT documented in this encounter Progress Notes * García Hess MD - 02/09/2017 1:45 PM CDT Reason For Visit Reason For Visit: Acute Visit Chief Complaint 1. Leg Pain This morning while dancing, felt sudden onset pain to right calf. Painful to walk. History of Present Illness HPI Free Text: 51yo female for evaluation right lower leg pain. Started this morning, was dancing at work, felt a sudden, sharp pain into proximal, posterior, lower leg. Described as feeling like go kicked in the leg. Pain immediately. Has been able to bear weight but pain with stance into push off. No swelling, no bruising. No previous ankle or leg issues. Taking nothing currently for symptoms. Review of Systems Constitutional: no fever, not feeling poorly and no chills. Cardiovascular: no chest pain. Respiratory: no cough. Gastrointestinal: no abdominal pain. Active Problems 1. Amenorrhea (626.0) (N91.2) 2. Anxiety (300.00) (F41.9) 3. Arthritis (716.90) (M19.90) 4. Esophageal reflux (530.81) (K21.9) 5. Inflammatory arthritis (714.9) (M19.90) 6. Insomnia (780.52) (G47.00) 7. Irritable bowel syndrome (564.1) (K58.9) 8. Oral ulcer (528.9) (K12.1) 9. Polyarthritis (716.50) (M13.0) Past Medical History 1. [...] Tablet; TAKE 1 TABLET DAILY DIRECTED; Therapy: (Recorded:94Kcp8275) to Recorded Dispense: 0 Days ; #: Sufficient Tablet; Refill: 0; EMA = N; Record; Last Updated By: Yohana Rodriguez;06/26/2015 8:33:57 AM 2. Dicyclomine HCl - 20 MG Oral Tablet; TAKE 1 TABLET BY MOUTH EVERY 6 HOURS NEEDED; Therapy: 91Izg5155 to (Last Rx:[id number]) Requested for: 04Feb2017; Status: ACTIVE - Renewal Denied Ordered Rx By: Clement Young; Dispense: 0 Days ; #:40 Tablet; Refill: 0; For: Irritable bowel syndrome; EMA = N; Verified Transmission to [facility] Last Updated By: Crystal Tafoya; 02/04/2017 4:49:52 PM 3. Enbrel 50 MG/ML Subcutaneous Solution Prefilled Syringe; INJECT 50MG ONCE A WEEK; Therapy: 36Sza8399 to (Evaluate:31Fln2341) Recorded Dispense: 28 Days ; #: Sufficient ML; Refill: 0; EMA = N; Record; Last Updated By: Yohana Rodriguez; 06/26/2015 8:33:57 AM 4. Folic Acid 1 MG Oral Tablet; TAKE 1 TABLET DAILY; Therapy: 98Xnb6674 to (Evaluate:07Tmr3924) Recorded Dispense: 30 Days ; #:30 Tablet; Refill: 3; EMA = Y; Record; Last Updated By: Lashaun Kathleen; 12/04/2014 2:26:01 PM 5. Methotrexate Sodium 1 GM Injection Solution Reconstituted; INJECT 0.8 ML Weekly; Therapy: 18Oct2015 to Recorded Dispense: 0 Days ; #: [...] Multi-Vitamins TABS; TAKE 2 TABLET Daily; Therapy: (Recorded:31Dgm6945) to Recorded Dispense: 0 Days ; #: Sufficient Tablet; Refill: 0; EMA = N; Record; Last Updated By: Yohana Rodriguez;06/26/2015 8:33:56 AM 8. Nabumetone 500 MG Oral Tablet; TAKE 2 TABLET TWICE DAILY; Therapy: 82Twq5079 to Recorded Dispense: 0 Days ; #: Sufficient Tablet; Refill: 0; For: Inflammatory arthritis; EMA = N; Record; Last Updated By: Yohana Rodriguez; 10/18/2015 8:38:42 AM 9. Surprise-3 Complex 192-251-11 MG-MG-UNIT Oral Capsule; Take one cap daily; Therapy: (Recorded:04Dec2014) to Recorded Dispense: 0 Days ; #: Sufficient Capsule; Refill: 0; EMA = N; Record; Last Updated By: Lashaun Kathleen; 12/04/2014 2:26:00 PM 10. Premarin 0.625 MG/GM Vaginal Cream; Insert 0.5 gram 3 times weekly at hs; Therapy: 02Aug2014 to (Evaluate:62Cjh6713) Recorded Dispense: 0 Days ; #: Sufficient X 30 GM Tube; Refill: 0; EMA = N; Record; Last Updated By: Lashaun Kathleen; 12/04/2014 2:26:01 PM Allergies 1. Levaquin TABS Recorded By: Tamie Cosby; 09/23/2012 2:04:37 PM Vitals Recorded: 09Feb2017 01:45PM Temperature 98.3 F Heart Rate 66 Respiration 16 Systolic 96 Diastolic 70 O2 Saturation 98 Height 5 ft 7 in Weight 173 lb BMI Calculated 27.1 BSA Calculated 1.9 Physical Exam Constitutional General appearance: No acute distress, well appearing and well nourished. Pulmonary Auscultation of lungs: Clear to auscultation. Cardiovascular Auscultation of heart: Normal rate and rhythm, normal S1 and S2, without murmurs. Abdomen Abdomen: Non-tender, no masses. Right Ankle: Appearance: no Achilles defect, no erythema and no swelling. TTP primarily over mid gastroc complex. ROM: Full. Dorsiflexion was 5/5. Plantar flexion was 4/5 and painful. Special Tests: negative Montero Test. Palpatory findings include no defect in the Achilles tendon. Assessment 1. Leg pain, posterior, right (729.5) (M79.604) Plan Leg pain, posterior, right 1. Follow-up PRN Outpatient Follow-up Status: Complete Done: 09Feb2017 Ordered; For: Leg pain, posterior, right; Ordered By: García Hess Performed: Due: 32Hgq7692 Discussion/Summary 1. Right calf strain. Likely high grade strain. [place] kick, sharp pull in back of leg. Symptoms are more in mid muscle belly. No appreciable Achilles defect noted. Discussed options, will place in boot, activity as tolerates, OTC analgesics. monitor symptoms. Fu 2 weeks, sooner if needed. Discussed warning signs and symptoms . Signatures Electronically signed by : García Hess M.D.; Feb 09 2017 5:00PM DIESEL MAINTENANCE TECHNICIAN (Author) documented in this encounter Plan of Treatment Upcoming Encounters Date Type Department Care Team (Late st Contact Info) Description 11/14/2024 8:00 AM DIESEL MAINTENANCE TECHNICIAN Office Visit [facility] Multispecialty Care - [facility] 3 [facility], [address] [place] [address] Montserrat Oliver NP 3 [facility] [address] [place] [address] 12/06/2024 9:30 AM DIESEL MAINTENANCE TECHNICIAN Appointment [facility] MRI [address] [place] [address] [place] [address] [facility] Darlene. [address] [place] [address] 03/02/2025 3:20 PM CDT Office Visit [facility] Family & Internal Medicine - [address] [phone] [place] [address] [facility] [address]ene. [address] [place] [address] documented as of this encounter Visit Diagnoses Not on filedocumented in this encounter
--- OUTSIDE RECORDS SUMMARY | 2024-11-13 17:15 | XMS_ITS | Encounter Summary ---
Author Organization [facility] Address [address] [place] [address]. [place] [address] [place] [address] Care Team Providers Care Bagel Maker Name Role Phone Unavailable Primary Care Provider Unavailabl e Encounter Details Date Type Department Care Team (Latest Contact Info) Description 08/06/2015 Abstract [facility] [place] [address] [place], [place] [phone] Social History Tobacco Use Types Packs/Day Years [...] st Contact Info) Description 11/14/2024 8:00 AM EDUCATION MANAGERS Office Visit [facility] Multispecialty Care - [facility] 3 [facility], [address] [place] [phone] Montserrat Oliver NP 3 [facility] [address] [place] [address] 12/06/2024 9:30 AM EDUCATION MANAGERS Appointment Health system Open MRI [address] [facility] [place] [address] [place] [address] [address] [place] [address] 03/02/2025 3:20 PM CDT Office Visit [facility] Family & Internal Medicine - [place] [address] [place] [address] [place] [address] [facility] [place] [address] documented as of this encounter Visit Diagnoses Not on filedocumented in this encounter
--- OUTSIDE RECORDS SUMMARY | 2024-11-13 17:15 | XMS_ITS | Encounter Summary ---
Author Organization [facility] Address [address] [place] [address]. [place] [address] [place] [address] Care Team Providers Care Rehabilitation Team Lead Name Role Phone Unavailable Primary Care Provider Unavailabl e Encounter Details Date Type Department Care Team (Latest Contact Info) Description 10/27/2012 Abstract [facility] Efren Garcia FNP [address] [place] [address] Social History Tobacco Use Types Packs/Day Years Used Date Smoking Tobacco: Never Assessed Comments Unknown Sex and Gender Information Value Date Recorded Sex Assigned at Not on file Legal Sex Female 8:16 PM CDT Gender Identity Not on file Sexual Orientation Not on file documented as of this encounter Progress Notes * RYLIE Mejia - 10/27/2012 12:10 PM CST Mya zapata was contacting the patient to inform her that her hemaclt came back negative Current Meds 1. Bentyl CAPS; TAKE 1 CAPSULE EVERY 6 HOURS DAILY; Therapy: (Recorded:23Sep2012) to 2. CeleBREX CAPS; Therapy: (Recorded:14Oct2012) to 3. Diclofenac Sodium 50 MG Oral Tablet Delayed Release; 1 tablet with food QAM, 1 tablet with food at noon daily, 2 tablets with food in the evening daily; Therapy: 41Ywb5478 to (Last Rx:83Lhb4590) Requested for: 07Xva9455 4. Diclofenac Sodium 75 MG Oral Tablet Delayed Release; TAKE ONE TABLET BY MOUTH TWICE A DAY WITH FOOD; Therapy: 40Ldl2362 to (Evaluate:16Nov2012) Requested for: 17Oct2012; Last Rx:[id number] 5. MiraLax PACK; Therapy: (Recorded:14Oct2012) to 6. Mirtazapine 15 MG Oral Tablet; TAKE 1/2 TO 1 TABLET AT BEDTIME; Therapy: 14Oct2012 to (Evaluate:09Oct2013) Requested for: 14Oct2012; Last Rx:14Oct2012 7. Multi-Vitamin TABS; Therapy: (Recorded:14Oct2012) to 8. NexIUM 40 MG Oral Capsule Delayed Release; TAKE 1 CAPSULE ONCE DAILY; Therapy: (Recorded:23Sep2012) to 9. [employer]-3 Complex CAPS; Therapy: (Recorded:14Oct2012) to 10. TraMADol HCl 50 MG Oral Tablet; Take 1-2 tablets every 6 hours as needed; Therapy: 14Oct2012 to (Last Rx:14Oct2012) 11. Vitamin B12 TABS; Therapy: (Recorded:14Oct2012) to 12. Xanax 0.25 MG Oral Tablet; TAKE 1 TABLET DAILY; Therapy: (Recorded:23Sep2012) to 13. ZyrTEC-D Allergy & Congestion TB12; Therapy: (Recorded:14Oct2012) to COATER documented in this encounter Plan of Treatment Upcoming Encounters Date Type Department Care Team (Late st Contact Info) Description 11/14/2024 8:00 AM TAPE COATER Office Visit [facility] Mult[facility]pecialty Care - [facility] 3 [facility], [address] [place] [phone] Montserrat Oliver, DOREEN 3 [facility] [address] [place] [address] 12/06/2024 9:30 AM TAPE COATER Appointment [facility] [address] [place] [address] [place] [address] [address] [place] [address] 03/02/2025 3:20 PM CDT Office Visit [facility] Group Family & Internal Medicine - [address] [address] [place] [address] [facility] D[address]ene. [address] [place] [address] documented as of this encounter Visit Diagnoses Not on filedocumented in this encounter
--- OUTSIDE RECORDS SUMMARY | 2024-11-13 17:15 | XMS_ITS | Encounter Summary ---
Author Organization [facility] Address [address] [place] [address]. [place] [address] [place] [address] Care Team Providers Care Data Conversion Operator Name Role Phone Unavailable Primary Care Provider Unavailabl e Encounter Details Date Type Department Care Team (Latest Contact Info) Description 03/02/2013 Abstract [facility] Medical Group Social History Tobacco [...] Info) Description 11/14/2024 8:00 AM SALES REPRESENTATIVE MALT LIQUORS Office Visit [facility] Medical [facility] Multispecialty Care - [facility] 3 [facility], [address] [place] [address] Montserrat Oliver, CONTRACT MANAGEMENT SPECIALIST 3 [facility] [address] [place] [address] 12/06/2024 9:30 AM SALES REPRESENTATIVE MALT LIQUORS Appointment [facility] Open MRI [address] [place] [address] [place] [address] [address] [place] [address] 03/02/2025 3:20 PM CDT Office Visit [facility] Medical Group Family & Internal Medicine - [place] [address] [place] [address] [place] [address] [facility]. [address] [place] [address] documented as of this encounter Visit Diagnoses Not on filedocumented in this encounter
--- OUTSIDE RECORDS SUMMARY | 2024-11-13 17:15 | XMS_ITS | Encounter Summary ---
Author Organization [facility] Address [address] [place] [address]. [place] [address] [place] [address] Care Team Providers Care Stock Worker And Deliverer Name Role Phone Unavailable Primary Care Provider Unavailabl e Encounter Details Date Type Department Care Team (Late st Contact Info) Description 03/20/[address] [facility] [address] [place], [place] [phone] Kings Elder MD Social History Tobacco Use Types Packs/Day [...] st Contact Info) Description 11/14/2024 8:00 AM INTAKE RN Office Visit [facility] Medical Group [facility] - [facility], [address] [place] [phone] Montserrat Oliver NP 3 [facility] [address] [place] [address] 12/06/2024 9:30 AM INTAKE RN Appointment [facility] [address] [place] [address] [place] [address] [facility] [place] [address] 03/02/2025 3:20 PM CDT Office Visit [facility] Medical Group Family & Internal Medicine - [place] [address] [place] [address] [place] [id number] [place] [address]. [address] [place], [place] [phone] documented as of this encounter Visit Diagnoses Not on filedocumented in this encounter
--- OUTSIDE RECORDS SUMMARY | 2024-11-13 17:15 | XMS_ITS | Encounter Summary ---
Author Organization [facility] Address [address] [place] [address]. [place] [address] [place] [address] Care Team Providers Care Carry In Worker Name Role Phone Unavailable Primary Care Provider Unavailabl e Encounter Details Date Type Department Care Team (Latest Contact Info) Description 09/04/2013 Abstract [facility] Medical Group Social History Tobacco Use [...] st Contact Info) Description 11/14/2024 8:00 AM BOLT CUTTER Office Visit [facility] Medical [facility] Multispecialty Care - [facility] 3 [facility], [address] [place] [address] Montserrat Oliver, LEATHER ETCHER 3 [facility] [address] [place] [address] 12/06/2024 9:30 AM BOLT CUTTER Appointment [facility] Open MRI [address] [place] [address] [place] [address] [address] [place] [address] 03/02/2025 3:20 PM CDT Office Visit [facility] Medical Group Family & Internal Medicine - [place] [address] [place] [address] [place] [address] [facility]. [address] [place] [address] documented as of this encounter Visit Diagnoses Not on filedocumented in this encounter
--- OUTSIDE RECORDS SUMMARY | 2024-11-13 17:15 | XMS_ITS | Encounter Summary ---
Author Organization [facility] Address [address] [place] [address]. [place] [address] [place] [address] Care Team Providers Care Cardiopulmonary Technician Name Role Phone Jaspreet Pearl MD Primary Care Provider Felipe rangel Encounter Details Date Type Department Care Team (Late st Contact Info) Description 10/13/2014 Abstract [facility] [address] [place] [phone] Paul Mathur MD [address] [place] [address] [facility] [address] [place], [place] [phone] Social History Tobacco Use Types Packs/Day Years [...] st Contact Info) Description 11/14/2024 8:00 AM PROSTHETIST Office Visit [facility] Medical Group Multispecialty Care - [facility] 3 [facility], [address] [place] [address] Montserrat Oliver NP 3 [facility] [address] [place] [address] 12/06/2024 9:30 AM PROSTHETIST [facility]ment [facility] [address] [place] [address] [place] [address] [facility] [address]. [address] [place] [address] 03/02/2025 3:20 PM CDT Office Visit [facility] Medical Group Family & Internal Medicine - [place] [address] [place] [address] [place] [address] [facility] [address] [place], [place] [address] documented as of this encounter Visit Diagnoses Diagnosis Pain in joint, pelvic region and thigh documented in this encounter Care Teams Cardiopulmonary Technician Relationship Specialty Start Date End Date Jaspreet Pearl MD PCP - General INTERNAL MEDICINE 11/30/18 02/18/23 documented as of this encounter
--- OUTSIDE RECORDS SUMMARY | 2024-11-13 17:15 | XMS_ITS | Encounter Summary ---
Author Organization [facility] Address [address] [place] [address]. [place] [address] [place] [address] Care Team Providers Care Field Marketer Name Role Phone Jaspreet Pearl MD Primary Care Provider Felipe archerelijah Encounter Details Date Type Department Care Team (Late st Contact Info) Description 04/20/2011 Abstract [facility] [address] [place], [place] [address] Stalin Calderón MD [address] [id number] Social History Tobacco Use Types Packs/Day Years [...] (Late Contact Info) Description 11/14/2024 8:00 AM LAMP SHADE ASSEMBLER Office Visit [facility] Medical Group Multispecialty Care - [facility] 3 [facility], [address] [place] [address] Montserrat Oliver NP 3 [facility] [address] [place] [address] 12/06/2024 9:30 AM LAMP SHADE ASSEMBLER Appointment [facility] [address] [place] [address] [place] [address] [facility] [address]. [address] [place], [place] [address] 03/02/2025 3:20 PM CDT Office Visit [facility] Medical Group Family & Internal Medicine [facility] [address] [place] [address] [place] [address] [facility] [employer]. [address] [place] [address] documented as of this encounter Visit Diagnoses Diagnosis Screening for malignant neoplasm of cervix Screening for malignant neoplasm of the cervix documented in this encounter Care Teams Field Marketer Relationship Specialty Start Date End Date Jaspreet Pearl MD PCP - General INTERNAL MEDICINE 11/30/18 02/18/23 documented as of this encounter
--- OUTSIDE RECORDS SUMMARY | 2024-11-13 17:15 | XMS_ITS | Encounter Summary ---
Author Organization [facility] Address [address] [place] [address]. [place] [address] [place] [address] Care Team Providers Care Mechanic Welder Name Role Phone Jaspreet Pearl MD Primary Care Provider Felipe rangel Encounter Details Date Type Department Care Team (Late st Contact Info) Description 12/23/2015 Abstract [facility] [address] [place] [address] [place] [address] [place] [address] Social History Tobacco Use Types Packs/Day Years [...] (Late Contact Info) Description 11/14/2024 8:00 AM FORK ASSEMBLER Office Visit [facility] Medical Group Multispecialty Care - [facility] 3 [facility], [address] [place] [address] Montserrat Oliver NP 3 [facility] [address] [place] [address] 12/06/2024 9:30 AM FORK ASSEMBLER [facility] [address] [place] [address] [place] [address] [facility] [address]. [address] [place] [phone] 03/02/2025 3:20 PM CDT Office Visit [facility] Medical Group Family & Internal Medicine [facility] [address] [place] [address] [place] [address] [facility] [employer]. [address] [place] [address] documented as of this encounter Visit Diagnoses Diagnosis Osteoarthritis Osteoarthrosis, unspecified whether generalized or localized, unspecified site documented in this encounter Care Teams Mechanic Welder Relationship Specialty Start Date End Date Jaspreet Pearl MD PCP - General INTERNAL MEDICINE 11/30/18 02/18/23 documented as of this encounter
--- OUTSIDE RECORDS SUMMARY | 2024-11-13 17:15 | XMS_ITS | Encounter Summary ---
Author Organization [facility] Address [address] [place] [address]. [place] [address] [place] [address] Care Team Providers Care Special Needs Tutor Name Role Phone Unavailable Primary Care Provider Unavailabl e Encounter Details Date Type Department Care Team (Latest Contact Info) Description 10/14/2012 Abstract [facility] [place] [address] [address] Social History Tobacco Use Types Packs/Day Years Used Date Smoking Tobacco: Never Assessed Comments Unknown Sex and Gender Information Value Date Recorded Sex Assigned at Not on file Legal Sex Female 8:16 PM CDT Gender Identity Not on file Sexual Orientation Not on file documented as of this encounter Last Filed Vital Signs Vital Sign Reading Time Taken Comments Blood Pressure 122/64 10/14/2012 9:28 AM POLE PEELING MACHINE OPERATOR Pulse 64 10/14/2012 9:28 AM POLE PEELING MACHINE OPERATOR Temperature - - Respiratory Rate - - Oxygen Saturation - - Inhaled Oxygen Concentration - - Weight 70.8 kg (156 lb) 10/14/2012 9:28 AM POLE PEELING MACHINE OPERATOR Height 170.2 cm (5' 7 ) 10/14/2012 9:28 AM POLE PEELING MACHINE OPERATOR Body Mass Index 24.43 10/14/2012 9:28 AM POLE PEELING MACHINE OPERATOR documented in this encounter Progress Notes * Toney Munroe MD - 10/14/2012 9:15 AM CST Chief Complaint Patient complains of all over joint pain. Lots of pain in her hands and feet. History of Present Illness HPI Free Text: Here with . Last menses May 2012. Stopped OC's after that. could hike without a problem all summer, could walk/run, then in July has more stiffness. In Early August has had difficulty getting up from toilet, now can't get comfortalble at nightl Can't put rings on, hands and wrists are the worse. I'm scared. Began to notice pain several months ago off and on. Review of Systems Focused-Female: The patient presents with complaints of sore throat starting 1 day ago. Symptoms are improving. Genitourinary: no dysuria. Active Problems 1. Arthritis 716.90 Amenorrhea 626.0 Past Medical History 1. History of Irritable Bowel Syndrome 564.1 2. History of Ulcerative Colitis 556.9 Surgical History 1. History of Gallbladder Surgery Social History ?? Never A Smoker has psoriatic arthritis Current Meds 1. Bentyl CAPS; TAKE 1 CAPSULE EVERY 6 HOURS DAILY; Therapy: (Recorded:23Sep2012) to Recorded; Dispense: 0 Days ; #: Sufficient Capsule; Refill: 0; Record; Last Updated By: Tamie Cosby 2. CeleBREX CAPS; Therapy: (Recorded:14Oct2012) to Recorded; Dispense: 0 Days ; #: Sufficient CAPS; Refill: 0; Record; Last Updated By: Asmita Coley 3. MiraLax PACK; Therapy: (Recorded:14Oct2012) to Recorded; Dispense: 0 Days ; #: Sufficient PACK; Refill: 0; Record; Last Updated By: Asmita Coley 4. Multi-Vitamin TABS; Therapy: (Recorded:14Oct2012) to Recorded; Dispense: 0 Days ; #: Sufficient TABS; Refill: 0; Record; Last Updated By: Asmita Coley 5. NexIUM 40 MG Oral Capsule Delayed Release; TAKE 1 CAPSULE ONCE DAILY; Therapy: (Recorded:23Sep2012) to Recorded; Dispense: 90 Days ; #:90 Capsule Delayed Release; Refill: 0; Record; Last Updated By: Tamie Cosby 6. Murphy-3 Complex CAPS; Therapy: (Recorded:14Oct2012) to Recorded; Dispense: 0 Days ; #: Sufficient CAPS; Refill: 0; Record; Last Updated By: Asmita Coley 7. Vitamin B12 TABS; Therapy: (Recorded:14Oct2012) to Recorded; Dispense: 0 Days ; #: Sufficient TABS; Refill: 0; Record; Last Updated By: Asmita Coley 8. Xanax 0.25 MG Oral Tablet; TAKE 1 TABLET DAILY; Therapy: (Recorded:23Sep2012) to Recorded; Dispense: 0 Days ; #: Sufficient Tablet; Refill: 0; Record; Last Updated By: Tamie Cosby 9. ZyrTEC-D Allergy & Congestion TB12; Therapy: (Recorded:14Oct2012) to Recorded; Dispense: 0 Days ; #: Sufficient TB12; Refill: 0; Record; Last Updated By: Asmita Coley Allergies 1. Levaquin TABS Vitals Vital Signs [Data Includes: Current Encounter] 14Oct2012 09:28AM Temperature 99.1 F Heart Rate 64 Respiration 16 Systolic 122 Diastolic 64 BMI Calculated 24.48 BSA Calculated 1.82 Height 5 ft 7 in Weight 156 lb Physical Exam Anxious, tearful at times, clearly in a lot of discomfort/pain Constitutional General appearance: Abnormal. (Tearful, distraught, uncomfortable) Well developed, well nourished, appears tired, not exhausted and appearance reflects stated age. Musculoskeletal Joints, bones, and muscles: Abnormal. Appearance - MCPs are tender and boggy swelling. Palpation - MCPs tender and boggy tenderness. Assessment 1. Arthritis 716.90 2. Fever (Symptom) 780.60 3. Insomnia 780.52 Plan 1. Mirtazapine 15 MG Oral Tablet; TAKE 1/2 TO 1 TABLET AT BEDTIME; Therapy: 14Oct2012 to (Evaluate:09Oct2013) Requested for: 14Oct2012; Last Rx:14Oct2012; Edited Ordered; For: Arthritis (716.90); Rx By: Toney Munroe; Dispense: 90 Days ; #:90 Tablet; Refill: 3;Verified Transmission to [facility]. 2. TraMADol HCl 50 MG Oral Tablet; Take 1-2 tablets every 6 hours as needed; Therapy: 14Oct2012 to (Last Rx:14Oct2012); Edited Ordered; For: Arthritis (716.90); Rx By: Toney Munroe; Dispense: 0 Days ; #:60 Tablet; Refill: 0; Print Rx 3. CBC with Diff Requested for: 14Oct2012 Ordered; For: Arthritis (716.90); Ordered By: Toney Munroe Perform: [facility] Due:[id number] 4. CMP (Comprehensive Metabolic Profile) Requested for: [id number] Ordered; For: Arthritis (716.90); Ordered By: Toney Munroe Perform: [facility] Due:[id number] 5. SED RATE (Erythrocyte Sedimentation Rate) Requested for: [id number] Ordered; For: Arthritis (716.90); Ordered By: Toney Munroe Perform: [facility] Due:[id number] 6. UA (Urinalysis) Requested for: [id number] Ordered; For: Fever (Symptom) (780.60); Ordered By: Toney Munroe Perform: [facility] Due: [id number] 7. Urine Culture & Sensitivity Requested for: 14Oct2012 Ordered; For: Fever (Symptom) (780.60); Ordered By: Toney Munroe Perform: [facility] Due: [id number] we will call you at home [phone] about plan for today obtain pathology report from [facility] colonoscopy plant based diet handout unable to work for medical reasons starting 10-13-2012 call with response on Wednesday Discussion/Summary discussed with rheumatology fellow continuous drier operator, he will try to make appt with Dr. Perez Cervantes as soon as he returns next week from [place] said would call back after discussing with his attendings Signatures Electronically signed by : Toney Munroe M.D.; Nov 05 2012 11:20PM (Author) PEELING MACHINE OPERATOR documented in this encounter Plan of Treatment Upcoming Encounters Date Type Department Care Team (Late st Contact Info) Description 11/14/2024 8:00 AM POLE PEELING MACHINE OPERATOR Office Visit [facility] Multispecialty Care - [facility] [address] [facility], [address] [place] [address] Montserrat Oliver NP 3 [facility] [address] [place] [address] 12/06/2024 9:30 AM POLE PEELING MACHINE OPERATOR Appointment [facility] Open MRI [address] [place] [address] [place] [address] [address] [place] [phone] 03/02/2025 3:20 PM CDT Office Visit [facility] Family & Internal Medicine - [address] [address] [place] [address] [facility] [place] [phone] documented as of this encounter Visit Diagnoses Not on filedocumented in this encounter
--- OUTSIDE RECORDS SUMMARY | 2024-11-13 17:15 | XMS_ITS | Encounter Summary ---
Author Organization [facility] Address [address] [place] [address]. [place] [address] [place] [address] Care Team Providers Care Gear Nicker Name Role Phone Unavailable Primary Care Provider Unavailabl e Encounter Details Date Type Department Care Team (Latest Contact Info) Description 03/21/2014 Abstract [facility] Medical Group Social History Tobacco Use Types [...] Contact Info) Description 11/14/2024 8:00 AM RESIDENT SERVICES COORDINATOR Office Visit [facility] Medical [facility] Multispecialty Care - [facility] [address] [facility], [address] [place] [address] Montserrat Oliver, WASTEWATER DESIGN ENGINEER 3 [facility] [address] [place] [address] 12/06/2024 9:30 AM RESIDENT SERVICES COORDINATOR Appointment [facility] Open MRI [address] [place] [address] [place] [address] [address] [place] [address] 03/02/2025 3:20 PM CDT Office Visit [facility] Medical Group Family & Internal Medicine - [place] [address] [place] [address] [place] [address] [facility] [place] [address] documented as of this encounter Visit Diagnoses Not on filedocumented in this encounter
--- OUTSIDE RECORDS SUMMARY | 2024-11-13 17:15 | XMS_ITS | Encounter Summary ---
Author Organization [facility] Address [address] [place] [address]. [place] [address] [place] [address] Care Team Providers Care Creative Arts Music Therapist Name Role Phone Jaspreet Pearl MD Primary Care Provider Felipe rangel Encounter Details Date Type Department Care Team (Late st Contact Info) Description 06/22/2007 Abstract [facility] CONVERSION [address] [place] [address] Efren Garcia, LIQUOR RUNNER [address] [place] [address] Social History Tobacco Use Types Packs/Day Years [...] st Contact Info) Description 11/14/2024 8:00 AM WEIGHT LOSS PHYSICIAN Office Visit [facility] Medical Group Multispecialty Care - [facility] [address] [facility], [address] [place] [address] Montserrat Oliver, DOREEN 3 [facility] [address] [place] [address] 12/06/2024 9:30 AM WEIGHT LOSS PHYSICIAN Appointment [facility] Open MRI [address] [place] [address] [place] [address] [facility] [address] [place] [address] 03/02/2025 3:20 PM CDT Office Visit [facility] Medical Group Family & Internal Medicine [facility] [address] [place] [address] [place] [address] [place], [place] [phone] documented as of this encounter Visit Diagnoses Not on filedocumented in this encounter Care Teams Creative Arts Music Therapist Relationship Specialty Start Date End Date Jaspreet Pearl MD PCP - General INTERNAL MEDICINE 11/30/18 02/18/23 documented as of this encounter
--- OUTSIDE RECORDS SUMMARY | 2024-11-13 17:15 | XMS_ITS | Encounter Summary ---
Author Organization [facility] Address [address] [place] [address]. [place] [address] [place] [address] Care Team Providers Care Keymodule Assembly Supervisor Name Role Phone Unavailable Primary Care Provider Unavailabl e Encounter Details Date Type Department Care Team (Late st Contact Info) Description 12/04/2014 Abstract [facility] Medical Group Family & Internal Medicine [facility] [id number] [place] [address] [place] [id number] [place] [phone] Social History Tobacco Use Types Packs/Day Years Used Date Smoking Tobacco: Never Assessed Comments Unknown Sex and Gender Information Value Date Recorded Sex Assigned at Not on file Legal Sex Female 8:16 PM CDT Gender Identity Not on file Sexual Orientation Not on file documented as of this encounter Last Filed Vital Signs Vital Sign Reading Time Taken Comments Blood Pressure 114/70 12/04/2014 2:19 PM BAIL BONDSMAN Pulse 70 12/04/2014 2:19 PM BAIL BONDSMAN Temperature - - Respiratory Rate - - Oxygen Saturation - - Inhaled Oxygen Concentration - - Weight 72.1 kg (159 lb) 12/04/2014 2:19 PM BAIL BONDSMAN Height 170.2 cm (5' 7 ) 12/04/2014 2:19 PM BAIL BONDSMAN Body Mass Index 24.9 12/04/2014 2:19 PM BAIL BONDSMAN documented in this encounter Progress Notes * Clement Young MD - 12/04/2014 2:00 PM CST Reason For Visit Reason For Visit: Acute Visit Chief Complaint Pt presents to the office today c/o a productive cough and a runny/stuffy nose. History of Present Illness Hans Pascual presents with complaints of cough. Associated symptoms include chills, runny nose, stuffy nose, sore throat and postnasal drainage, but no dyspnea, no fever, no myalgias, no pleuritic chest pain, no chest pain, no vomiting, no heartburn, no mouth breathing, no noisy breathing, no rapid breathing, no painful swallowing, no nose itching, no headache, no hemoptysis and no night sweats. Review of Systems See HPI for pertinent positives. Constitutional: feeling poorly, chills and feeling tired, but no recent weight gain, no recent weight loss and no headache. ENT: sore throat and nasal discharge, but no earache, no nosebleeds, no hearing loss and no hoarseness. Cardiovascular: Normal. Respiratory: cough, but no shortness of breath, no orthopnea, no wheezing, no shortness of breath during exertion and no PND. Gastrointestinal: Normal. Genitourinary: Normal. Integumentary: Normal. Musculoskeletal: Normal. Neurological: Normal. Psychiatric: Normal. Active Problems 1. Amenorrhea (626.0) (N91.2) 2. Arthritis (716.90) (M19.90) 3. Esophageal reflux (530.81) (K21.9) 4. Inflammatory arthritis (714.9) (M06.4) 5. Insomnia (780.52) (G47.00) 6. Polyarthritis (716.50) (M13.0) Past Medical History 1. History of irritable bowel syndrome (V12.79) (Z87.19) 2. History of ulcerative colitis (V12.79) (Z87.19) Surgical History 1. History of Gallbladder Surgery Family History Mother 1. No pertinent family history Social History ?? Never a smoker Current Meds 1. Enbrel 50 MG/ML Subcutaneous Solution Prefilled Syringe; Therapy: [id number] to Recorded Dispense: 28 Days ; #:4 SOSY; Refill: 0; EMA = N; Record; Last Updated By: Lashaun Kathleen; 08/31/2014 4:36:01 PM 2. Folic Acid 1 MG Oral Tablet; TAKE 1 TABLET DAILY; Therapy: 60Lth5927 to (Evaluate:29Kib5402) Recorded Dispense: 30 Days ; #:30 Tablet; Refill: 3; EMA = Y; Record; Last Updated By: Lashaun Kathleen; 12/04/2014 2:26:01 PM 3. Methotrexate 2.5 MG Oral Tablet; Take 8 tab weekly; Therapy: 31Aug2014 to Recorded Dispense: 0 Days ; #: Sufficient Tablet; Refill: 0; For: Inflammatory arthritis; EMA = N; Record; Last Updated By: Lashaun Kathleen; 08/31/2014 4:36:01 PM 4. MiraLax Oral Packet; MIX 1 PACKET IN 8 OUNCES OF LIQUID AND DRINK ONCE DAILY; Therapy: (Recorded:04Dec2014) to Recorded Dispense: 15 Days ; #:15 Packet; Refill: 0; EMA = N; Record; Last Updated By: Lashaun Kathleen; 12/04/2014 2:26:00 PM 5. Multi-Vitamin TABS; Therapy: (Recorded:14Oct2012) to Recorded Dispense: 0 Days ; #: Sufficient TABS; Refill: 0; EMA = N; Record; Last Updated By: Asmita Coley; 10/14/2012 9:33:47 AM 6. Naproxen 500 MG Oral Tablet; take one tab bid; Therapy: 31Aug2014 to Recorded Dispense: 0 Days ; #: Sufficient Tablet; Refill: 0; For: Inflammatory arthritis; EMA = N; Record; Last Updated By: Lashaun Kathleen; 08/31/2014 4:36:01 PM 7. [place]-3 Complex 192-251-11 MG-MG-UNIT Oral Capsule; Take one cap daily; Therapy: (Recorded:04Dec2014) to Recorded Dispense: 0 Days ; #: Sufficient Capsule; Refill: 0; EMA = N; Record; Last Updated By: Lashaun Kathleen; 12/04/2014 2:26:00 PM 8. Premarin 0.625 MG/GM Vaginal Cream; Insert 0.5 gram 3 times weekly at hs; Therapy: 02Aug2014 to (Evaluate:17Soa3509) Recorded Dispense: 0 Days ; #: Sufficient X 30 GM Tube; Refill: 0; EMA = N; Record; Last Updated By: Lashaun Kathleen; 12/04/2014 2:26:01 PM 9. Vitamin B12 TABS; Therapy: (Recorded:14Oct2012) to Recorded Dispense: 0 Days ; #: Sufficient TABS; Refill: 0; EMA = N; Record; Last Updated By: Asmita Cloey; 10/14/2012 9:33:47 AM Allergies 1. Levaquin TABS Recorded By: Tamie Cosby; 09/23/2012 2:04:37 PM Vitals Vital Signs [Data Includes: Current Encounter] Recorded by : Lashaun Kathleen at 04Dec2014 02:19PM Temperature 97.8 F Heart Rate 70 Respiration 16 Systolic 114 Diastolic 70 O2 Saturation 98 Height 5 ft 7 in Weight 159 lb BMI Calculated 24.9 BSA Calculated 1.83 Physical Exam Constitutional General appearance: No acute distress, well appearing and well nourished. Eyes Conjunctiva and lids: No swelling, erythema or discharge. Pupils and irises: Equal, round and reactive to light. Ears, Nose, Mouth, and Throat External inspection of ears and nose: Normal. Otoscopic examination: Tympanic membranes translucent with normal light reflex. Canals patent without erythema. Oropharynx: Abnormal. Right sided tonsillar erythema without exudate. Pulmonary Respiratory effort: No increased work of breathing or signs of respiratory distress. Auscultation of lungs: Abnormal. Soft upper exp rhonchi. Cardiovascular Auscultation of heart: Normal rate and rhythm, normal S1 and S2, without murmurs. Examination of extremities for edema and/or varicosities: Normal. Abdomen Abdomen: Non-tender, no masses. Liver and spleen: No hepatomegaly or splenomegaly. Lymphatic Palpation of lymph nodes in neck: No lymphadenopathy. Skin Skin and subcutaneous tissue: Normal without rashes or lesions. Neurologic Cranial nerves: Cranial nerves 2-12 intact. Psychiatric Orientation to person, place, and time: Normal. Mood and affect: Normal. Assessment 1. Acute bronchitis (466.0) (J20.9) Plan Acute bronchitis 1. Start: Azithromycin 250 MG Oral Tablet; TAKE 2 TABLETS ON DAY 1 THEN TAKE 1 TABLET A DAY FOR 4 DAYS Rx By: Clement Young; Dispense: 0 Days ; #:6 Tablet; Refill: 0; For: Acute bronchitis; EMA = N; Verified Transmission to [facility]; Last Updated By: Crystal Tafoya; 12/04/2014 2:41:02PM Insomnia 2. Start: Hydrocodone-Acetaminophen 5-325 MG Oral Tablet; One tablet at bedtime Rx By: Clement Young; Dispense: 0 Days ; #:15 Tablet; Refill: 0; For: Insomnia; EMA = N; Print Rx 1) Acute bronchitis: I will give her a z viki and advise her to push fluids, rest, and if any increase in symptoms, fever, wheezing to notify the office Signatures Electronically signed by : Clement Young M.D.; Dec 04 2014 8:14PM BAIL BONDSMAN (Author) documented in this encounter Plan of Treatment Upcoming Encounters Date Type Department Care Team (Late st Contact Info) Description 11/14/2024 8:00 AM BAIL BONDSMAN Office Visit [facility] Multispecialty Care - [facility] 3 [facility], [address] [place] [address] Montserrat Oliver NP 3 [facility] [address] [place] [address] 12/06/2024 9:30 AM BAIL BONDSMAN Appointment [facility] Open MRI [address] [place] [address] [place] [address] [facility] Darlene. [address] [place] [address] 03/02/2025 3:20 PM CDT Office Visit [facility] Family & Internal Medicine - [address] [address] [place] [address] [address] [place] [address] documented as of this encounter Visit Diagnoses Not on filedocumented in this encounter
--- OUTSIDE RECORDS SUMMARY | 2024-11-13 17:15 | XMS_ITS | Encounter Summary ---
Author Organization [facility] Address [address] [place] [address]. [place] [address] [place] [address] Care Team Providers Care Instrument Processing Tech Name Role Phone Unavailable Primary Care Provider Unavailabl e Encounter Details Date Type Department Care Team (Late st Contact Info) Description 06/26/2015 Abstract [facility] Medical Group Family & Internal Medicine [facility] [address] [place] [phone] [place] [address] [place], [place] [id number] Social History Tobacco Use Types Packs/Day Years Used Date Smoking Tobacco: Never Assessed Comments Unknown Sex and Gender Information Value Date Recorded Sex Assigned at Not on file Legal Sex Female 8:16 PM CDT Gender Identity Not on file Sexual Orientation Not on file documented as of this encounter Last Filed Vital Signs Vital Sign Reading Time Taken Comments Blood Pressure 112/60 06/26/2015 8:29 AM CDT Pulse 70 06/26/2015 8:29 AM CDT Temperature - - Respiratory Rate - - Oxygen Saturation - - Inhaled Oxygen Concentration - - Weight 78.9 kg (174 lb) 06/26/2015 8:29 AM CDT Height 170.2 cm (5' 7 ) 06/26/2015 8:29 AM CDT Body Mass Index 27.25 06/26/2015 8:29 AM CDT documented in this encounter Progress Notes * Clement Young MD - 06/26/2015 8:30 AM CDT Chief Complaint Pt here with c/o insomnia and anxiety. History of Present Illness Insomnia (Brief): The patient is being seen for an initial evaluation of insomnia. Symptoms: difficulty staying asleep and unrefreshing sleep, but no difficulty falling asleep, no parasomnia, no daytime sleepiness, no anxiety upon awakening and no sleeping at inappropriate times. The patient is currently experiencing symptoms. Associated symptoms: no irritability, no difficulty concentrating, no snoring, no depression, no chronic pain, no alcohol abuse, no drug abuse, no restless legs, no periodic limb movements during sleep, no nocturnal leg cramps, no nightmares, no night terrors and no sleepwalking. Anxiety Disorder, NOS (Brief): The patient is being seen for an initial evaluation of an existing diagnosis of anxiety. Symptoms: anxiety, difficulty concentrating, excessive worry and sleep disruption, but no fatigue, no irritability, no globus, no muscle tension, no nervousness, no panic attacks,no shaky hands and no sweaty palms. The patient is currently experiencing symptoms. Associated symptoms: gastrointestinal complaints, but no chest pain, no choking sensation, no diaphoresis, no dizziness, no fainting, no flushing, no headaches, no heart palpitations, no racing heart, no hyperventilation, no muscle pain, no muscle spasms, no paresthesia, no shortness of breath and no tremors. Review of Systems See HPI for pertinent positives. Constitutional: Normal. ENT: normal. Cardiovascular: Normal. Respiratory: Normal. Gastrointestinal: Normal. Genitourinary: Normal. Integumentary: no skin rash. Musculoskeletal: no joint swelling and no limb pain. Neurological: no confusion, no dizziness, no limb weakness, no convulsions and no difficulty walking. Psychiatric: anxiety, but no suicidal ideation and no depression. Active [...] Tablet; TAKE 1 TABLET DAILY DIRECTED; Therapy: (Recorded:[id number]) to Recorded Dispense: 0 Days ; #: Sufficient Tablet; Refill: 0; EMA = N; Record; Last Updated By: Yohana Rodriguez;06/26/2015 8:33:57 AM 2. Enbrel 50 MG/ML Subcutaneous Solution Prefilled Syringe; INJECT 50MG ONCE A WEEK; Therapy: [id number] to (Evaluate:[id number]) Recorded Dispense: 28 Days ; #: Sufficient ML; Refill: 0; EMA = N; Record; Last Updated By: Yohana Rodriguez; 06/26/2015 8:33:57 AM 3. Folic Acid 1 MG Oral Tablet; TAKE 1 TABLET DAILY; Therapy: [id number] to (Evaluate:[id number]) Recorded Dispense: 30 Days ; #:30 Tablet; Refill: 3; EMA = Y; Record; Last Updated By: Lashaun Kathleen; 12/04/2014 2:26:01 PM 4. Methotrexate 2.5 MG Oral Tablet; Take 8 tab weekly; Therapy: 31Aug2014 to Recorded Dispense: 0 Days ; #: Sufficient Tablet; Refill: 0; For: Inflammatory arthritis; EMA = N; Record; Last Updated By: Lashaun Kathleen; 08/31/2014 4:36:01 PM 5. MiraLax Oral Packet; MIX 1 PACKET IN 8 OUNCES OF LIQUID AND DRINK ONCE DAILY; Therapy: (Recorded:04Dec2014) to Recorded Dispense: 15 Days ; #:15 Packet; Refill: 0; EMA = N; Record; Last Updated By: Lashaun Kathleen; 12/04/2014 2:26:00 PM 6. Multi-Vitamins TABS; TAKE 2 TABLET Daily; Therapy: (Recorded:97Orl8210) to Recorded Dispense: 0 Days ; #: Sufficient Tablet; Refill: 0; EMA = N; Record; Last Updated By: Yohana Rodriguez;06/26/2015 8:33:56 AM 7. Naproxen 500 MG Oral Tablet; take one tab bid; Therapy: 31Aug2014 to Recorded Dispense: 0 Days ; #: Sufficient Tablet; Refill: 0; For: Inflammatory arthritis; EMA = N; Record; Last Updated By: Lashaun Kathleen; 08/31/2014 4:36:01 PM 8. [place]-3 Complex 192-251-11 MG-MG-UNIT Oral Capsule; Take one cap daily; Therapy: (Recorded:04Dec2014) to Recorded Dispense: 0 Days ; #: Sufficient Capsule; Refill: 0; EMA = N; Record; Last Updated By: Lashaun Kathleen; 12/04/2014 2:26:00 PM 9. Premarin 0.625 MG/GM Vaginal Cream; Insert 0.5 gram 3 times weekly at hs; Therapy: 02Aug2014 to (Evaluate:27Cqi1896) Recorded Dispense: 0 Days ; #: Sufficient X 30 GM Tube; Refill: 0; EMA = N; Record; Last Updated By: Lashaun Kathleen; 12/04/2014 2:26:01 PM Allergies 1. Levaquin TABS Recorded By: Tamie Cosby; 09/23/2012 2:04:37 PM Vitals Recorded: [id number] 08:29AM Heart Rate 70 Respiration 16 Systolic 112 Diastolic 60 O2 Saturation 98 Height 5 ft 7 in Weight 174 lb BMI Calculated 27.25 BSA Calculated 1.91 Physical Exam Constitutional General appearance: No acute [...] cyanosis. Inspection/palpation of joints, bones, and muscles: Normal. Skin Skin and subcutaneous tissue: Normal without rashes or lesions. Neurologic Cranial nerves: Cranial nerves 2-12 intact. Reflexes: 2+ and symmetric. Sensation: No sensory loss. Psychiatric Orientation to person, place, and time: Normal. Mood and affect: Normal. Assessment 1. Anxiety (300.00) (F41.9) 2. Irritable bowel syndrome (564.1) (K58.9) 3. Insomnia (780.52) (G47.00) Plan Anxiety 1. BusPIRone HCl - 7.5 MG Oral Tablet; TAKE ONE TABLET TWICE A DAY NEEDED Rx By: Clement Young; Dispense: 0 Days ; #:60 Tablet; Refill: 0; For: Anxiety; EMA = N; VerifiedTransmission to [facility]); Last Updated By: Biorasis; 06/26/2015 9:19:21 AM Irritable bowel syndrome 2. Dicyclomine HCl - 20 MG Oral Tablet; TAKE 1 TABLET EVERY 6 HOURS NEEDED Rx By: Clement Young; Dispense: 10 Days ; #:40 Tablet; Refill: 0; For: Irritable bowel syndrome;EMA = N; Verified Transmission to [facility]); Last Updated By: Biorasis; 06/26/2015 9:19:21 AM 1) Anxiety: She has a appointment with psychology and I will start buspar and titrate as needed, a lot of her stress is her 17yo daughter and I have advised exercise and sleep hygiene 2) IBS: will continue bentyl and she will continue her diet and relaxation techniques 3) Insomnia: Have talked about sleep hygiene and at this point do not want to start anything for sleep, she can get to sleep just wakes up and then can not go back due to mind racing follow up in one month Signatures Electronically signed by : Clement Young M.D.; Jun 26 2015 3:56PM BANKING SERVICES ADVISOR (Author) documented in this encounter Plan of Treatment Upcoming Encounters Date Type Department Care Team (Late st Contact Info) Description 11/14/2024 8:00 AM BANKING SERVICES ADVISOR Office Visit [facility] Multispecialty Care - [facility] 3 [facility], [address] [place] [address] Montserrat Oliver NP 3 [facility] [address] [place] [address] 12/06/2024 9:30 AM BANKING SERVICES ADVISOR Appointment [facility] Open MRI [address] [place] [address] [place] [address] [address] [place] [address] 03/02/2025 3:20 PM CDT Office Visit [facility] Family & Internal Medicine - [address] [address] [place] [address] [address] [place] [address] documented as of this encounter Visit Diagnoses Not on filedocumented in this encounter
--- OUTSIDE RECORDS SUMMARY | 2024-11-13 17:15 | XMS_ITS | Encounter Summary ---
Author Organization [facility] Address [address] [place] [address]. [place] [address] [place] [address] Care Team Providers Care Electrician'S Helper Name Role Phone Unavailable Primary Care Provider Unavailabl e Encounter Details Date Type Department Care Team (Late st Contact Info) Description 09/23/[address] [facility] [address] [place], [place] [phone] Kings Elder MD Social History Tobacco Use [...] st Contact Info) Description 11/14/2024 8:00 AM STOCK DEALER Office Visit [facility] Mult[facility]pecialty Care - [place] 3 [facility], [address] [place] [phone] Montserrat Oilver NP 3 [facility] [address] [place] [address] 12/06/2024 9:30 AM STOCK DEALER Appointment [facility] [address] [place] [address] [place] [address] [facility]. [address] [place] [address] 03/02/2025 3:20 PM CDT Office Visit [facility] Medical Group Family & Internal Medicine - [place] [address] [place] [address] [place] [address] [place] [address]. [address] [place], [place] [phone] documented as of this encounter Visit Diagnoses Not on filedocumented in this encounter
--- OUTSIDE RECORDS SUMMARY | 2024-11-13 17:15 | XMS_ITS | Encounter Summary ---
Author Organization [facility] Address [address] [place] [address]. [place] [address] [place] [address] Care Team Providers Care Bezel Cutter Name Role Phone Jaspreet Pearl MD Primary Care Provider Felipe rangel Encounter Details Date Type Department Care Team (Late st Contact Info) Description 09/24/2012 Abstract [facility] [address] [place] [address] Efren Garcia, [facility] [address] [place] [address] Social History Tobacco Use Types Packs/Day Years [...] st Contact Info) Description 11/14/2024 8:00 AM EMBOSSING PRESS OPERATOR MOLDED GOODS Office Visit [facility] Medical Group Multispecialty Care - [facility] 3 [facility], [address] [place] [address] Montserrat Oliver, DOREEN 3 [facility] [address] [place] [address] 12/06/2024 9:30 AM EMBOSSING PRESS OPERATOR MOLDED GOODS Appointment [facility] Open MRI [address] [place] [address] [place] [address] [facility] [address] [place], [place] [address] 03/02/2025 3:20 PM CDT Office Visit [facility] Medical Group Family & Internal Medicine - [place] [address] [place] [address] [place] [address] [facility]. [address] [place] [address] documented as of this encounter Visit Diagnoses Diagnosis Irritable colon Irritable bowel syndrome documented in this encounter Care Teams Bezel Cutter Relationship Specialty Start Date End Date Jaspreet Pearl MD PCP - General INTERNAL MEDICINE 11/30/18 02/18/23 documented as of this encounter
--- OUTSIDE RECORDS SUMMARY | 2024-11-13 17:15 | XMS_ITS | Encounter Summary ---
Author Organization [facility] Address [address] [place] [address]. [place] [address] [place] [address] Care Team Providers Care Personal Finance Instructor Name Role Phone Unavailable Primary Care Provider Unavailabl e Encounter Details Date Type Department Care Team (Latest Contact Info) Description 01/22/2017 Abstract [facility] Medical Group Social History Tobacco [...] st Contact Info) Description 11/14/2024 8:00 AM HUMAN RESOURCES TEMP Office Visit [facility] Medical [facility] Multispecialty Care - [facility] 3 [facility], [address] [place] [address] Montserrat Oliver, DIET CLERK 3 [facility] [address] [place] [address] 12/06/2024 9:30 AM HUMAN RESOURCES TEMP Appointment [facility] Open MRI [address] [place] [address] [place] [address] [address] [place] [address] 03/02/2025 3:20 PM CDT Office Visit [facility] Medical Group Family & Internal Medicine - [place] [address] [place] [address] [place] [address] [facility]. [address] [place] [address] documented as of this encounter Procedures Procedure Name Priority Date/Time Associated Diagnosis Comments MG SCREENING VICTORIANO DIGI Routine 06/15/2016 12:00 AM CDT COLONOSCOPY Routine 09/01/2010 12:00 AM CDT documented in this encounter Results * MG SCREENING VICTORIANO DIGI (06/15/2016 12:00 AM CDT) Anatomical Region Laterality Modality Breast Bilateral Mammography 06/15/2016 06/15/2016 Narrative 01/29/2017 2:42 PM CDT No Mammographic Evidence of Malignancy. Birads 2- Benign Finding. Recommendation: Bilateral mammogram in 12 months Procedure Note Kings Elder MD - 09/07/2018 No Mammographic Evidence of Malignancy. Birads 2- Benign Finding.Recommendation: Bilateral mammogram in 12 months us Clement Young MD MAMMO Final Resul t * Colonoscopy (09/01/2010 12:00 AM CDT) 09/01/2010 09/01/2010 Narrative [facility] CONVERSION - 09/01/2010 12:00 AM CDT Documented hx of procedure Procedure Note Kings Elder MD - 09/18/2018 Documented hx of procedure us Kings Nunez Md, MD GI PROCEDURE ORDERABLES Final Result [facility] CON[facility] documented in this encounter Visit Diagnoses Not on filedocumented in this encounter
--- OUTSIDE RECORDS SUMMARY | 2024-11-13 17:15 | XMS_ITS | Encounter Summary ---
Author Organization [facility] Address [address] [place] [address]. [place] [address] [place] [address] Care Team Providers Care Corporate Law Specialist Name Role Phone Unavailable Primary Care Provider Unavailabl e Encounter Details Date Type Department Care Team (Latest Contact Info) Description 12/24/2015 Abstract [facility] [place] [address] [address] [place], [place] [phone] Social History Tobacco Use Types Packs/Day Years [...] st Contact Info) Description 11/14/2024 8:00 AM CUSTOMER SERVICE SUPERVISOR Office Visit [facility] Multispecialty Care - [facility] 3 [facility], [address] [place] [address] Montserrat Oliver NP 3 [facility] [address] [place] [address] 12/06/2024 9:30 AM CUSTOMER SERVICE SUPERVISOR Appointment [facility] Open MRI [address] [facility] [place] [address] [place] [address] [address] [place] [address] 03/02/2025 3:20 PM CDT Office Visit [facility] Medical Group Family & Internal Medicine - [place] [address] [place] [address] [place] [address] [facility]. [address] [place] [address] documented as of this encounter Visit Diagnoses Not on filedocumented in this encounter
--- OUTSIDE RECORDS SUMMARY | 2024-11-13 17:15 | XMS_ITS | Encounter Summary ---
Author Organization [facility] Address [address] [place] [address]. [place] [address] [place] [address] Care Team Providers Care Chain Person Name Role Phone Jaspreet Pearl MD Primary Care Provider Felipe archerelijah Encounter Details Date Type Department Care Team (Late st Contact Info) Description 11/19/2007 Abstract [facility] CONVERSION [address] [place] [address] Yahir Ramirez MD [address] [facility] [address] [place] [address] Social History Tobacco Use Types [...] st Contact Info) Description 11/14/2024 8:00 AM LINE MAINTAINER Office Visit [facility] Medical Group Multispecialty Care - [facility] 3 [facility], [address] [place] [address] Montserrat Oliver NP 3 [facility] [address] [place] [address] 12/06/2024 9:30 AM LINE MAINTAINER Appointment [facility] Open MRI [address] [place] [address] [place] [address] [facility]. [address] [place] [address] 03/02/2025 3:20 PM CDT Office Visit [facility] Medical Group Family & Internal Medicine [facility] [address] [place] [address] [place] [address] [facility]. [address] [place], [place] [address] documented as of this encounter Visit Diagnoses Not on filedocumented in this encounter Care Teams Chain Person Relationship Specialty Start Date End Date Jaspreet Pearl MD PCP - General INTERNAL MEDICINE 11/30/18 02/18/23 documented as of this encounter
--- OUTSIDE RECORDS SUMMARY | 2024-11-13 17:15 | XMS_ITS | Encounter Summary ---
Author Organization [facility] Address [address] [place] [address]. [place] [address] [place] [address] Care Team Providers Care Merchandise Flow Manager Name Role Phone Jaspreet Pearl MD Primary Care Provider Felipe archerelijah Encounter Details Date Type Department Care Team (Late st Contact Info) Description 06/11/2014 Abstract [facility] Diagnostic Imaging [address] [place], [place] [address] Stalin Calderón MD [address] [id number] Social History Tobacco Use Types Packs/Day Years [...] st Contact Info) Description 11/14/2024 8:00 AM OPHTHALMIC TECH Office Visit [facility] Medical Group Multispecialty Care - [facility] 3 [facility], [address] [place] [address] Montserrat Oliver NP 3 [facility] [address] [place] [address] 12/06/2024 9:30 AM OPHTHALMIC TECH [facility]ment [facility] [address] [place] [address] [place] [address] [facility] [place], [place] [address] 03/02/2025 3:20 PM CDT Office Visit [facility] Medical Group Family & Internal Medicine [facility] [address] [place] [address] [place] [address] [facility]. [address] [place] [address] documented as of this encounter Visit Diagnoses Diagnosis Other screening mammogram documented in this encounter Care Teams Merchandise Flow Manager Relationship Specialty Start Date End Date Jaspreet Pearl MD PCP - General INTERNAL MEDICINE 11/30/18 02/18/23 documented as of this encounter
--- OUTSIDE RECORDS SUMMARY | 2024-11-13 17:15 | XMS_ITS | Encounter Summary ---
Author Organization [facility] Address [address] [place] [address]. [place] [address] [place] [address] Care Team Providers Care Captain/Airline Pilot Name Role Phone Jaspreet Pearl MD Primary Care Provider Felipe archerelijah Encounter Details Date Type Department Care Team (Late st Contact Info) Description 10/14/2012 Abstract [facility] [address] [place] [address] [place] [address] [address] Social History Tobacco Use Types Packs/Day Years [...] st Contact Info) Description 11/14/2024 8:00 AM BROWNFIELD PROGRAM COORDINATOR Office Visit [facility] Medical Group Multispecialty Care - [facility] 3 [facility], [address] [place] [address] Montserrat Oliver NP 3 [facility] [address] [place] [address] 12/06/2024 9:30 AM BROWNFIELD PROGRAM COORDINATOR [facility] [address] [place] [address] [place] [address] [facility]. [address] [place], [place] [address] 03/02/2025 3:20 PM CDT Office Visit [facility] Medical Group Family & Internal Medicine - [place] [address] [place] [address] [place] [address] [facility]. [address] [place] [address] documented as of this encounter Visit Diagnoses Diagnosis Arthropathy Arthropathy, unspecified, site unspecified documented in this encounter Care Teams Captain/Airline Pilot Relationship Specialty Start Date End Date Jaspreet Pearl MD PCP - General INTERNAL MEDICINE 11/30/18 02/18/23 documented as of this encounter
--- OUTSIDE RECORDS SUMMARY | 2024-11-13 17:15 | XMS_ITS | Encounter Summary ---
Author Organization [facility] Address [address] [place] [address]. [place] [address] [place] [address] Care Team Providers Care Janitorial Assistant Name Role Phone Unavailable Primary Care Provider Unavailabl e Encounter Details Date Type Department Care Team (Latest Contact Info) Description 01/10/2016 Abstract [facility] Medical Group Social History Tobacco Use Types Packs/Day Years Used Date Smoking Tobacco: Never Assessed Comments Unknown Sex and Gender Information Value Date Recorded Sex Assigned at Not on file Legal Sex Female 8:16 PM CDT Gender Identity Not on file Sexual Orientation Not on file documented as of this encounter Progress Notes * Generic Conversion MD Jerrod - 01/10/2016 1:48 PM CST Message Recorded as Task Date: 01/10/2016 12:25 PM, Created By: Perla Randolph Task Name: Renew Medication Assigned To: [facility] Nurse Team Regarding Patient: Hans Pascual, Status: Active Comment: Perla Randolph - 10 Jan 2016 12:25 PM TASK CREATED Caller: Elvira; Elvira [facility] in [place] stating pt is requesting a refill of Tramadol. Shirley Cary - 10 Jan 2016 1:34 PM TASK EDITED task printed to ask Dr Young. Yohana Rodriguez - 10 Jan 2016 1:50 PM TASK EDITED [facility] Dr Young Plan 1. TraMADol HCl - 50 MG Oral Tablet; Take one tab po BID prn Rx By: Clement Young; Dispense: 0 Days ; #:60 Tablet; Refill: 0; For: Arthritis; EMA = N; Call Rx; Last Updated By: Yohana Rodriguez; 01/10/2016 1:49:51 PM script called into family pharmacy [facility] Signatures Electronically signed by : Yohana Rodriguez R.N.; Jan 10 2016 1:50PM PHARMACY HELPER (Author) documented in this encounter Plan of Treatment Upcoming Encounters Date Type Department Care Team (Late st Contact Info) Description 11/14/2024 8:00 AM PHARMACY HELPER Office Visit [facility] Mult[facility]pecialty Care - [facility] 3 [facility], [address] [place] [address] Montserrat Oliver NP 3 [facility] [address] [place] [address] 12/06/2024 9:30 AM PHARMACY HELPER Appointment [facility] Open MRI [address] [place] [address] [place] [address] [facility] Darlene. [address] [place] [address] 03/02/2025 3:20 PM CDT Office Visit [facility] Family & Internal Medicine - [address] [phone] [place] [address] [facility]. [address] [place] [address] documented as of this encounter Visit Diagnoses Not on filedocumented in this encounter
--- OUTSIDE RECORDS SUMMARY | 2024-11-13 17:15 | XMS_ITS | Encounter Summary ---
Author Organization [facility] Address [address] [place] [address]. [place], [place] [address] [place] [address] Care Team Providers Care Cytogenetics Laboratory Manager Name Role Phone Unavailable Primary Care Provider Unavailabl e Encounter Details Date Type Department Care Team (Latest Contact Info) Description 11/19/2015 Abstract [facility] , Kings Nunez MD Social History Tobacco Use Types Packs/Day Years Used Date Smoking Tobacco: Never Assessed Comments Unknown Sex and Gender Information Value Date Recorded Sex Assigned at Not on file Legal Sex Female 8:16 PM CDT Gender Identity Not on file Sexual Orientation Not on file documented as of this encounter Progress Notes * Nitza Young MD - 11/13/2015 12:00 AM CST [place] [address] Patient: HANS PASCUAL Med Rec#: [id number] Birthdate: 1965 Admit/Svce Date: 11/13/2015 Disch Date: Attending Md: NITZA YOUNG MD CHART DOCUMENT PHYSICIAN CERTIFICATION AND PLAN OF CARE PHYSICAL THERAPY DIAGNOSIS: Medical Diagnosis: Arthritis Physical Therapy Diagnosis: Bilateral hip pain/iliac crest pain, gait disorder - painful gait. 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 She reports that two years ago she began having pain in the left iliac crest region and had an injection which helped for approximately a year. Her pain then began again and had injections but they did not help. She states the left hip pain continues to be worse but 2-3 months ago began having complaints of pain in the right also. She is rating her pain at its worst a 5-6/10. She knows her gait pattern has changed due to arthritis in her feet and has fatigue by the end of her workday due to her arthritis. Patient did have tenderness to palpation noted at the ASIS bilaterally with the left greater than the right. Her hip ROM and bilateral lower extremity ROM were within functional limits and patient tested negative for the Scour's test for the bilateral hip joint. She does have weakness noted particularly in her hip flexors and iliopsoas. In sitting, her hip flexion tested left 4/5 and right 4+/5. In supine with the iliopsoas, her strength measured left 3/5 and right 3+/5. Her glut medius strength was left 4/5 and right 4+/5 and her hip extensors bilaterally 4-/5. Patient's knee flexion and extension bilaterally measured 5/5. She does have tightness noted in her hamstrings in the 90/90 position at -25 degrees bilaterally. Her hip flexor flexibility was 5 degrees bilaterally and her rectus femoris at 90 degrees bilaterally. Patient is ambulating without assistive device but does have a limp noted with increased hip hike on the right with left swing phase. She did grimace in pain with sit to stand transfers. Due to patient's ongoing hip pain with gait deviations and recent onset of right hip pain, she will benefit from physical therapy. Patient's symptoms could also be due to a tendinitis of the iliopsoas. PROBLEM/GOALS LIST: Problem 1: Pain with transfers and gait. Goal 1: Patient to have decreased pain such that she rates it at its worst a 3/10 when transferring from sit to stand and ambulating throughout her workday in 6 weeks. Problem 2: Decreased strength. Goal 2: Improve strength of patient's hip flexors/iliopsoas to at least 4/5 for improved stability when performing sit to stand transfers and ambulating at work in 6 weeks. Problem 3: Decreased flexibility. Goal 3: Improve hamstring flexibility by 10 degrees and rectus femoris and hip flexors by 10 degrees bilaterally to decrease the stress on her hip joints and pelvis in 6 weeks. Problem 4: Inadequate knowledge of HEP. Goal 4: Patient to be independent in home exercise program by discharge. TREATMENT PLAN Type: Modalities, manual therapeutic techniques, stretching and progressive strengthening exercises including instruction in HEP and general patient education. Frequency and Duration: 2x/week for 4-6 weeks Rehab Potential: Good for above goals Assisted Goal: Patient to have decreased pain such that she rates it no greater than a 2-3/10 with all activities and is ambulating with a normalized gait pattern. Treatment plan, goals, and procedures were discussed with this patient who agrees to proceed and cooperate. Plan of Care prepared and reviewed by Pippa Zamudio P.T. Electronically Signed by Nitza Young MD 11/20/2015 07:10 A Pippa Zamudio P.T. Nitza Young MD BM/sp 11/13/2015 11/19/2015 09:42 A Job No: [id number] Doc No: [id number] documented in this encounter Plan of Treatment Upcoming Encounters Date Type Department Care Team (Late st Contact Info) Description 11/14/2024 8:00 AM RECEIVING CHECKER Office Visit [facility] Multispecialty Care - [facility] 3 [facility], [address] [place] [phone] Montserrat Oliver NP 3 [facility] [address] [place] [address] 12/06/2024 9:30 AM RECEIVING CHECKER Appointment [facility] Open MRI [address] [place] [address] [place] [address] [address] [place] [address] 03/02/2025 3:20 PM CDT Office Visit [facility] Family & Internal Medicine - [place] [address] [place] [address] [place] [address] [facility]. [address] [place] [address] documented as of this encounter Visit Diagnoses Not on filedocumented in this encounter
--- OUTSIDE RECORDS SUMMARY | 2024-11-13 17:15 | XMS_ITS | Encounter Summary ---
Author Organization [facility] Address [address] [place] [address]. [place] [address] [place] [address] Care Team Providers Care Social Work Manager Name Role Phone Jaspreet Pearl MD Primary Care Provider Felipe waydylan Encounter Details Date Type Department Care Team (Late st Contact Info) Description 03/18/2005 Abstract [facility] [address] [place] [address] Mathew Levine MD Social History Tobacco Use [...] (Late Contact Info) Description 11/14/2024 8:00 AM CONCERT OR LECTURE HALL MANAGER Office Visit [facility] Multispecialty Care - [facility] 3 [facility], [address] [place] [address] Montserrat Oliver NP 3 [facility] [address] [place] [address] 12/06/2024 9:30 AM CONCERT OR LECTURE HALL MANAGER Appointment [facility] Open MRI [address] [place] [address] [place] [address] [address] [place] [address] 03/02/2025 3:20 PM CDT Office Visit [facility] Family & Internal Medicine - [address] [address] [place] [address] [place] [address] documented as of this encounter Visit Diagnoses Not on filedocumented in this encounter Care Teams Social Work Manager Relationship Specialty Start Date End Date Jaspreet Pearl MD PCP - General INTERNAL MEDICINE 11/30/18 02/18/23 documented as of this encounter
--- OUTSIDE RECORDS SUMMARY | 2024-11-13 17:15 | XMS_ITS | Encounter Summary ---
Author Organization [facility] Address [address] [place] [address]. [place], [place] [address] [place] [address] Care Team Providers Care Procedure Analyst Name Role Phone Unavailable Primary Care Provider Unavailabl e Encounter Details Date Type Department Care Team (Latest Contact Info) Description 01/29/2016 Abstract [facility] , Generic Conversion, [...] Notes * Generic Conversion MD Jerrod - 01/29/2016 8:43 AM CDT Message Recorded as Task Date: 01/28/2016 09:03 AM, Created By: Tabitha Carmichael Task Name: Referral Assigned To: [facility] Nurse Team Regarding Patient: Hans Pascual, Status: In Progress Comment: Tabitha Carmichael - 28 Jan 2016 9:03 AM TASK CREATED Caller: Self; pt states she completed PT and isn't improved. she states Dr. Young mentioned referring her to ortho if PT didn't help. can she get referral ordered for ortho or will she require a fu appt with Dr. Young? if we can order referral, the patient would like to go to Dr. Flip Garcia at [facility] ph #[phone]. please call her back to let her know what the plan is, her cell phone #[phone] and she is ok with a detailed vm. Link,Yohana - 28 Jan 2016 11:24 AM TASK EDITED Left v/m for pt to call office, per Dr Young ok with referral and referral has been placed Yohana Rodriguez - 28 Jan 2016 11:24 AM TASK IN PROGRESS Yohana Rodriguez - 29 Jan 2016 8:43 AM TASK EDITED Pt informed that referral was placed and that office will contact her with appt Signatures Electronically signed by : Yohana Rodriguez R.N.; Jan 29 2016 8:43AM VAMP LINER (Author) documented in this encounter Plan of Treatment Upcoming Encounters Date Type Department Care Team (Late st Contact Info) Description 11/14/2024 8:00 AM VAMP LINER Office Visit [facility] Multispecialty Care - [facility] 3 [facility], [address] [place] [phone] Montserrat Oliver NP 3 [facility] [address] [place] [address] 12/06/2024 9:30 AM VAMP LINER Appointment [facility] Open MRI [address] [place] [address] [place] [address] [facility]. [address] [place] [address] 03/02/2025 3:20 PM CDT Office Visit [facility] - [place] [address] [place] [phone] [place] [address] [facility]. [address] [place] [address] documented as of this encounter Visit Diagnoses Not on filedocumented in this encounter
--- OUTSIDE RECORDS SUMMARY | 2024-11-13 17:15 | XMS_ITS | Encounter Summary ---
Author Organization [facility] Address [address] [place] [address]. [place] [address] [place] [address] Care Team Providers Care Optical Systems Engineer Name Role Phone Unavailable Primary Care Provider Unavailabl e Encounter Details Date Type Department Care Team (Late st Contact Info) Description 12/23/2016 Abstract [facility] Family & Internal Medicine [facility] [address] [place] [address] Ben Barker MD [address] [address] Social History Tobacco Use Types Packs/Day Years Used Date Smoking Tobacco: Never Assessed Comments Unknown Sex and Gender Information Value Date Recorded Sex Assigned at Not on file Legal Sex Female 8:16 PM CDT Gender Identity Not on file Sexual Orientation Not on file documented as of this encounter Last Filed Vital Signs Vital Sign Reading Time Taken Comments Blood Pressure 102/58 12/23/2016 11:23 AM PEANUT GRADER Pulse 70 12/23/2016 11:23 AM PEANUT GRADER Temperature - - Respiratory Rate - - Oxygen Saturation - - Inhaled Oxygen Concentration - - Weight 73.5 kg (162 lb) 12/23/2016 11:23 AM PEANUT GRADER Height 170.2 cm (5' 7 ) 12/23/2016 11:23 AM PEANUT GRADER Body Mass Index 25.37 12/23/2016 11:23 AM PEANUT GRADER documented in this encounter Progress Notes * Ben Barker MD - 12/23/2016 11:20 AM CST Chief Complaint pt here has productive cough, sore throat coughing up thick green mucus this am going on since lastiday History of Present Illness HISTORY of PRESENT ILLNESS: Hans is a pleasant 51-year-old female typically seen by Dr. Young with a 5-day history of cough productive of green mucus as well as sore throat. She does note a frontal headache, worse when she is bending over, some poor sleep, some chest tightness but denies dyspnea and some hoarseness forthe past 2 days. She does have sores to the roof of her mouth which predated the acute onset of theremainder of her symptoms. She does have family members with similar symptoms. 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 REVIEW of SYSTEMS: As per HPI. VITAL SIGNS: Afebrile, normotensive, SpO2 98% on room air. BMI 25.4. PHYSICAL EXAM: GENERAL: Well-developed and well-nourished, cooperative. Mildly ill-appearing, in mild to moderate distress. SKIN: Normal color, warm & dry. No lesions. HEAD: Normocephalic, without trauma. EENT: Extraocular movements intact, pupils equal, round, and reactive to light. Sclerae anicteric, conjunctivae non-injected and without discharge. Nasopharynx clear, oropharynx reveals vesicular lesions, deroofed, to the roof of the mouth, oral mucosa moist. NECK: Supple. RESPIRATORY: Airway patent. No respiratory distress. Clear to auscultation bilaterally. No wheezes,rales, or rhonchi. Occasional cough. CARDIOVASCULAR: Peripheral pulses palpable. Regular in rhythm, without murmur. No gallops, clicks or rubs. MUSCULOSKELETAL: Normal range of motion. EXTREMITIES: Warm, without clubbing, cyanosis, or edema. NEUROLOGIC: Alert & oriented x 3. Cranial nerves normal as tested. No gross motor deficits. PSYCHOLOGIC: Normal affect. GENITOURINARY: Deferred. ADDITIONAL DATA: None. MEDICAL DECISION-MAKING: LOW COMPLEXITY. ASSESSMENT/PLAN: See enumerated lists in the appropriate sections below. DISCUSSION: 1. ACUTE UPPER RESPIRATORY TRACT SYMPTOMS WITH BRONCHITIS AND ORAL ULCER. Reviewed the fact that laryngitis is most frequently viral in etiology. Given the inflammatory symptom she is experiencing, ashort burst of prednisone might be most amenable to reducing her acute symptoms. Given her history of immunosuppression, use of an antibiotic to cover bacterial bronchitis is a reasonable option. We will prescribe azithromycin Tri-Steve, with symptom control with benzonatate and Cheratussin AC. Patient given Oralone paste for oral ulcers. Encouraged use of oezg-vcy-kbomwlo decongestants and mucolytics for symptom relief. Call if her symptoms fail to resolve. She may take an antibiotic at this time or consider taking it in 2 to 3 days if her symptoms worsen or fail to resolve. Patient voices understanding and agreement with plan. FOLLOWUP: As needed. Active Problems 1. Amenorrhea (626.0) (N91.2) 2. Anxiety (300.00) (F41.9) 3. Arthritis (716.90) (M19.90) 4. Esophageal reflux (530.81) (K21.9) 5. Inflammatory arthritis (714.9) (M19.90) 6. Insomnia (780.52) (G47.00) 7. Irritable bowel syndrome (564.1) (K58.9) 8. Polyarthritis (716.50) (M13.0) Past Medical History 1. History of Hip pain, left (719.45) (M25.552) 2. History of ulcerative colitis (V12.79) (Z87.19) Surgical History 1. History of Gallbladder Surgery Family History Mother 1. No pertinent family history Social History ?? Never a smoker Current Meds 1. [facility] Vitamin B-12 1000 MCG Oral Tablet; TAKE 1 TABLET DAILY DIRECTED; Therapy: (Recorded:47Gjr8575) to Recorded Dispense: 0 Days ; #: Sufficient Tablet; Refill: 0; EMA = N; Record; Last Updated By: Yohana Rodriguez;06/26/2015 8:33:57 AM 2. Dicyclomine HCl - 20 MG Oral Tablet; TAKE 1 TABLET BY MOUTH EVERY 6 HOURS NEEDED; Therapy: 43Hxi2030 to (Last Rx:[id number]) Requested for: [id number] Ordered Rx By: Clement Young; Dispense: 0 Days ; #:40 Tablet; Refill: 0; For: Irritable bowel syndrome; EMA = N; Verified Transmission to [facility]; Last Updated By: Crystal Tafoya; 10/20/2016 11:59:59 AM 3. Enbrel 50 MG/ML Subcutaneous Solution Prefilled Syringe; INJECT 50MG ONCE A WEEK; Therapy: [id number] to (Evaluate:69Xyo1847) Recorded Dispense: 28 Days ; #: Sufficient ML; Refill: 0; EMA = N; Record; Last Updated By: Yohana Rodriguez; 06/26/2015 8:33:57 AM 4. Folic Acid 1 MG Oral Tablet; TAKE 1 TABLET DAILY; Therapy: 76Unh5953 to (Evaluate:22Hyo7586) Recorded Dispense: 30 Days ; #:30 Tablet; Refill: 3; EMA = Y; Record; Last Updated By: Lashaun Kathleen; 12/04/2014 2:26:01 PM 5. Methotrexate Sodium 1 GM Injection Solution Reconstituted; INJECT 0.8 ML Weekly; Therapy: 45Vqz0986 to Recorded Dispense: 0 Days ; #: [...] Multi-Vitamins TABS; TAKE 2 TABLET Daily; Therapy: (Recorded:[id number]) to Recorded Dispense: 0 Days ; #: Sufficient Tablet; Refill: 0; EMA = N; Record; Last Updated By: Yohana Rodriguez;06/26/2015 8:33:56 AM 8. Nabumetone 500 MG Oral Tablet; TAKE 2 TABLET TWICE DAILY; Therapy: 18Oct2015 to Recorded Dispense: 0 Days ; #: Sufficient Tablet; Refill: 0; For: Inflammatory arthritis; EMA = N; Record; Last Updated By: Yohana Rodriguez; 10/18/2015 8:38:42 AM 9. [place]-3 Complex 192-251-11 MG-MG-UNIT Oral Capsule; Take one cap daily; Therapy: (Recorded:04Dec2014) to Recorded Dispense: 0 Days ; #: Sufficient Capsule; Refill: 0; EMA = N; Record; Last Updated By: Lashaun Kathleen; 12/04/2014 2:26:00 PM 10. Premarin 0.625 MG/GM Vaginal Cream; Insert 0.5 gram 3 times weekly at hs; Therapy: 98Pwq9336 to (Evaluate:57Oaz1210) Recorded Dispense: 0 Days ; #: Sufficient X 30 GM Tube; Refill: 0; EMA = N; Record; Last Updated By: Lashaun Kathleen; 12/04/2014 2:26:01 PM 11. TraMADol HCl - 50 MG Oral Tablet; Take one tab po BID prn; Therapy: 71Tpk8010 to (Last Rx:[id number]) Ordered Rx By: Clement Young; Dispense: 0 Days ; #:60 Tablet; Refill: 0; For: Arthritis; EMA = N; Record; Last Updated By: Argelia Chan; 03/31/2016 5:12:18 PM Allergies 1. Levaquin TABS Recorded By: Tamie Cosby; 09/23/2012 2:04:37 PM Vitals Recorded: 42Kjo1796 11:23AM Temperature 98.3 F Heart Rate 70 Respiration 16 Systolic 102 Diastolic 58 O2 Saturation 98 Height 5 ft 7 in Weight 162 lb BMI Calculated 25.37 BSA Calculated 1.85 Assessment 1. URI, acute (465.9) (J06.9) 2. Acute bronchitis (466.0) (J20.9) 3. Laryngitis (464.00) (J04.0) 4. Oral ulcer (528.9) (K12.1) Plan Acute bronchitis, Laryngitis, URI, acute 1. PredniSONE 20 MG Oral Tablet; 2 tabs po qam x 5 days Rx By: Ben Barker; Dispense: 0 Days ; #:10 Tablet; Refill: 0; For: Acute bronchitis, Laryngitis, URI, acute; EMA = N; Print Rx Acute bronchitis, URI, acute 2. Azithromycin 500 MG Oral Tablet; TAKE 1 TABLET DAILY UNTIL FINISHED Rx By: Ben Barker; Dispense: 3 Days ; #:3 Tablet; Refill: 0; For: Acute bronchitis, URI, acute; EMA = N; Sent To: [facility] 3. Benzonatate 200 MG Oral Capsule; TAKE 1 CAPSULE 3 TIMES DAILY NEEDED FOR NON-PRODUCTIVE COUGH OR SORE THROAT Rx By: Ben Barker; Dispense: 0 Days ; #:20 Capsule; Refill: 0; For: Acute bronchitis, URI, acute; EMA = N; Sent To: [facility] 4. Cheratussin AC 100-10 MG/5ML Oral Syrup; TAKE 1-2 TEASPOONSFUL DAILY AT BEDTIME Rx By: Ben Barker; Dispense: 24 Days ; #:120 ML; Refill: 0; For: Acute bronchitis, URI, acute; EMA = N; Print Rx Oral ulcer 5. Oralone 0.1 % Mouth/Throat Paste; APPLY SPARINGLY TO AFFECTED AREAS 4 TIMES DAY Rx By: Ben Barker; Dispense: 0 Days ; #:1 X 5 GM Tube; Refill: 0; For: Oral ulcer; EMA = N;Sent To: [facility] DRINK PLENTY OF FLUIDS. MUCINEX-D FOR CONGESTION/SINUS PRESSURE/EAR PAIN. USE MEDICATIONS DIRECTED. CONSIDER TAKING PREDNISONE IN PLACE OF NABUMETONE FOR IMPROVED ANTIINFLAMMATION If symptoms worsen, or fail to improve in 72 hours, fill & start antibiotic. - CALL WITH ANY CONCERNS. Signatures Electronically signed by : Ben Barker M.D.; Jan 01 2017 7:35AM PEANUT GRADER (Author) documented in this encounter Plan of Treatment Upcoming Encounters Date Type Department Care Team (Late st Contact Info) Description 11/14/2024 8:00 AM PEANUT GRADER Office Visit [facility] Multispecialty Care - [facility] 3 [facility], [address] [place] [phone] Montserrat Oliver NP 3 [facility] [address] [place] [address] 12/06/2024 9:30 AM PEANUT GRADER Appointment [facility] [address] [place] [address] [place] [address] [address] [place] [address] 03/02/2025 3:20 PM CDT Office Visit [facility] Family & Internal Medicine - [address] [address] [place] [address] [facility] [address] [place] [address] documented as of this encounter Visit Diagnoses Not on filedocumented in this encounter
--- OUTSIDE RECORDS SUMMARY | 2024-11-13 17:15 | XMS_ITS | Encounter Summary ---
Author Organization [facility] Address [address] [place] [address]. [place] [address] [place] [address] Care Team Providers Care It Web Development Consultant Name Role Phone Unavailable Primary Care Provider Unavailabl e Encounter Details Date Type Department Care Team (Latest Contact Info) Description 04/02/2015 Abstract [facility] [place] [address] [place], [place] [phone] Social History Tobacco Use Types Packs/Day Years [...] st Contact Info) Description 11/14/2024 8:00 AM REAL ESTATE RECRUITER Office Visit [facility] Multispecialty Care - [facility] 3 [facility], [address] [place] [phone] Montserrat Oliver NP 3 [facility] [address] [place] [address] 12/06/2024 9:30 AM REAL ESTATE RECRUITER Appointment [facility] Open MRI [address] [facility] [place] [address] [place] [address] [address] [place] [address] 03/02/2025 3:20 PM CDT Office Visit [facility] Medical Group Family & Internal Medicine - [place] [address] [place] [address] [place] [address] [facility] [address] [place] [address] documented as of this encounter Visit Diagnoses Not on filedocumented in this encounter
--- OUTSIDE RECORDS SUMMARY | 2024-11-13 17:15 | XMS_ITS | Encounter Summary ---
Author Organization [facility] Address [address] [place] [address]. [place] [address] [place] [address] Care Team Providers Care Small Package And Bundle Sorter Clerk Name Role Phone Unavailable Primary Care Provider Unavailabl e Encounter Details Date Type Department Care Team (Late st Contact Info) Description 08/31/2014 Abstract [facility] Medical Group Family & Internal Medicine - [place] [id number] [place] [phone] [place] [address] [place], [place] [id number] Social History Tobacco Use Types Packs/Day Years Used Date Smoking Tobacco: Never Assessed Comments Unknown Sex and Gender Information Value Date Recorded Sex Assigned at Not on file Legal Sex Female 8:16 PM CDT Gender Identity Not on file Sexual Orientation Not on file documented as of this encounter Last Filed Vital Signs Vital Sign Reading Time Taken Comments Blood Pressure 110/64 08/31/2014 4:26 PM CDT Pulse 65 08/31/2014 4:26 PM CDT Temperature - - Respiratory Rate - - Oxygen Saturation - - Inhaled Oxygen Concentration - - Weight 70.8 kg (156 lb) 08/31/2014 4:26 PM CDT Height 170.2 cm (5' 7 ) 08/31/2014 4:26 PM CDT Body Mass Index 24.43 08/31/2014 4:26 PM CDT documented in this encounter Progress Notes * Clement Young MD - 08/31/2014 4:30 PM CDT Reason For Visit Reason For Visit: Acute Visit Chief Complaint Pt presents to the office today c/o left hip pain. She states she was told by her lap polisher that the problem in her hip is not due to arthritis, but thinks it is bursitis. History of Present Illness The patient is being seen for an initial evaluation of an existing diagnosis of hip pain. Symptoms:hip pain, groin pain and thigh pain, but no knee pain, no localized bruising, no localized swelling, no localized redness, no localized warmth, no limping, no refusal to bear weight and no decreased hip range of motion. Associated symptoms: no fever, no chills, no irritability, no malaise, no back pain and no rash. No associated symptoms are reported. Review of Systems See HPI for pertinent positives. Constitutional: Normal. ENT: normal. Cardiovascular: Normal. Respiratory: Normal. Gastrointestinal: Normal. Genitourinary: Normal. Integumentary: Normal. Musculoskeletal: joint pain and joint stiffness, but no arthralgias, no joint swelling, no limb pain and no limb swelling. Neurological: Normal. Psychiatric: Normal. Active Problems 1. Amenorrhea (626.0) (N91.2) 2. Arthritis (716.90) (M19.90) 3. Esophageal reflux (530.81) (K21.9) 4. Fatigue (780.79) (R53.83) 5. Fever (780.60) (R50.9) 6. Inflammatory arthritis (714.9) (M06.4) 7. Insomnia (780.52) (G47.00) 8. Pain in joint (719.40) (M25.50) 9. Polyarthritis (716.50) (M13.0) Past Medical History 1. History of irritable bowel syndrome (V12.79) (Z87.19) 2. History of ulcerative colitis (V12.79) (Z87.19) Surgical History 1. History of Gallbladder Surgery Family History Mother 1. No pertinent family history Social History ?? Never a smoker Current Meds 1. ALPRAZolam 0.25 MG Oral Tablet; Take 1/2 to 1 tablet by mouth twice a day; Therapy: 16Bcl0727 to (Evaluate:61Lso9803); Last Rx:12May2013 Ordered Rx By: Toney Munroe; Dispense: 30 Days ; #:60 Tablet; Refill: 1; For: Health Maintenance; EMA = N;Record; Last Updated By: Tamie Cosby; 08/31/2014 4:36:00 PM 2. CeleBREX CAPS; Therapy: (Recorded:14Oct2012) to Recorded Dispense: 0 Days ; #: Sufficient CAPS; Refill: 0; EMA = N; Record; Last Updated By: Asmita Coley; 08/31/2014 4:35:59 PM 3. Diclofenac Sodium 50 MG Oral Tablet Delayed Release; 1 tablet with food QAM, 1 tablet with food at noon daily, 2 tablets with food in the evening daily; Therapy: 36Ywn7159 to (Last Rx:[id number]) Requested for: 19Txi0256 Ordered Rx By: Toney Munroe; Dispense: 0 Days ; #:120 Tablet Delayed Release; Refill: 0; For: Health Maintenance; EMA = N; Verified Transmission to [facility] Last Updated By: Tabitha Dong; 08/31/2014 4:36:00 PM 4. Diclofenac Sodium 75 MG Oral Tablet Delayed Release; TAKE ONE TABLET BY MOUTH TWICE A DAY WITH FOOD; Therapy: 38Jaq7371 to (Evaluate:16Nov2012) Requested for: 12Rtz3092; Last Rx:[id number] Ordered Rx By: Toney Munroe; Dispense: 30 Days ; #:60 Tablet Delayed Release; Refill: 0; For: Health Maintenance; EMA = N; Verified Transmission to [facility] Last Updated By: Tabitha Dong; 08/31/2014 4:36:00 PM 5. Dicyclomine HCl - 10 MG Oral Capsule; TAKE 1-2 CAPS BY MOUTH 4 TIMES A DAY; Therapy: 04Sot3541 to (Last Rx:[id number]) Requested for: 03Jnp6959 Ordered Rx By: Toney Munroe; Dispense: 0 Days ; #:240 Capsule; Refill: 0; For: Health Maintenance; EMA = N; Verified Transmission to [facility] Last Updated By: Tabitha Dong; 08/31/2014 4:35:59 PM 6. Enbrel 50 MG/ML Subcutaneous Solution Prefilled Syringe; Therapy: 24Cik8876 to Recorded Dispense: 28 Days ; #:4 SOSY; Refill: 0; EMA = N; Record; Last Updated By: Lashaun Kathleen; 08/31/2014 4:36:01 PM 7. Folic Acid 1 MG Oral Tablet; Therapy: 67Hjg8940 to Recorded Dispense: 90 Days ; #:90 TABS; Refill: 0; EMA = Y; Record; Last Updated By: Lashaun Kathleen; 08/31/2014 4:36:01 PM 8. Methotrexate 2.5 MG Oral Tablet; Take 8 tab weekly; Therapy: 31Aug2014 to Recorded Dispense: 0 Days ; #: Sufficient Tablet; Refill: 0; For: Inflammatory arthritis; EMA = N; Record; Last Updated By: Lashaun Kathleen; 08/31/2014 4:36:01 PM 9. Methotrexate 2.5 MG Oral Tablet; Therapy: 92Lyg9196 to Recorded Dispense: 90 Days ; #:104 TABS; Refill: 0; EMA = Y; Record; Last Updated By: Lashaun Kathleen; 08/31/2014 4:36:01 PM 10. MiraLax PACK; Therapy: (Recorded:14Oct2012) to Recorded Dispense: 0 Days ; #: Sufficient PACK; Refill: 0; EMA = N; Record; Last Updated By: Asmita Coley; 10/14/2012 9:33:47 AM 11. Mirtazapine 15 MG Oral Tablet; TAKE 1/2 TO 1 TABLET AT BEDTIME; Therapy: 14Oct2012 to (Evaluate:09Oct2013) Requested for: 14Oct2012; Last Rx:14Oct2012 Ordered Rx By: Toney Munroe; Dispense: 90 Days ; #:90 Tablet; Refill: 3; For: Arthritis; EMA = N; [facility] [employer] [facility]. 12. Multi-Vitamin TABS; Therapy: (Recorded:14Oct2012) to Recorded Dispense: 0 Days ; #: Sufficient TABS; Refill: 0; EMA = N; Record; Last Updated By: Asmita Coley; 10/14/2012 9:33:47 AM 13. Naproxen 500 MG Oral Tablet; take one tab bid; Therapy: 31Aug2014 to Recorded Dispense: 0 Days ; #: Sufficient Tablet; Refill: 0; For: Inflammatory arthritis; EMA = N; Record; Last Updated By: Lashaun Kathleen; 08/31/2014 4:36:01 PM 14. Naproxen 500 MG Oral Tablet; Therapy: 99Rzp2039 to Recorded Dispense: 90 Days ; #:180 TABS; Refill: 0; EMA = Y; Record; Last Updated By: Lashaun Kathleen; 08/31/2014 4:36:01 PM 15. NexIUM 40 MG Oral Capsule Delayed Release; take 1 capsule twice a day Requested for: 89Cev3431; Last Rx:[id number] Ordered Rx By: Toney Munroe; Dispense: 30 Days ; #:60 Capsule Delayed Release; Refill: 3; For: Esophageal reflux; EMA = N; Verified Transmission to [facility]; Last Updated By: Tabitha Dong; 08/31/2014 4:35:59 PM 16. Conowingo-3 Complex CAPS; Therapy: (Recorded:14Oct2012) to Recorded Dispense: 0 Days ; #: Sufficient CAPS; Refill: 0; EMA = N; Record; Last Updated By: Asmita Coley; 10/14/2012 9:33:47 AM 17. Premarin 0.625 MG/GM Vaginal Cream; Therapy: 93Wje2364 to Recorded Dispense: 30 Days ; #:30 CREA; Refill: 0; EMA = N; Record; Last Updated By: Lashaun Kathleen; 08/31/2014 4:36:01 PM 18. TraMADol HCl - 50 MG Oral Tablet; Take 1-2 tablets every 6 hours as needed; Therapy: 14Oct2012 to (Last Rx:14Oct2012) Ordered Rx By: Toney Munroe; Dispense: 0 Days ; #:60 Tablet; Refill: 0; For: Arthritis; EMA = N; Print Rx 19. Vitamin B12 TABS; Therapy: (Recorded:14Oct2012) to Recorded Dispense: 0 Days ; #: Sufficient TABS; Refill: 0; EMA = N; Record; Last Updated By: Asmita oCley; 10/14/2012 9:33:47 AM 20. Xanax 0.25 MG Oral Tablet; TAKE 1 TABLET DAILY; Therapy: (Recorded:23Sep2012) to Recorded Dispense: 0 Days ; #: Sufficient Tablet; Refill: 0; EMA = N; Record; Last Updated By: Tamie Cosby; 09/23/2012 2:04:37 PM 21. ZyrTEC-D Allergy & Congestion TB12; Therapy: (Recorded:14Oct2012) to Recorded Dispense: 0 Days ; #: Sufficient TB12; Refill: 0; EMA = N; Record; Last Updated By: Asmita Coley; 10/14/2012 9:33:47 AM Allergies 1. Levaquin TABS Recorded By: Tamie Cosby; 09/23/2012 2:04:37 PM Vitals Vital Signs [Data Includes: Current Encounter] Recorded by : Lashaun Kathleen at 31Aug2014 04:26PM Temperature 97.9 F Heart Rate 65 Respiration 18 Blood Pressure 64 mm Hg 110 mm Hg O2 Saturation 98 Height 5 ft 7 in Weight 156 lb BMI Calculated 24.43 kg/m2 BSA Calculated 1.82 m2 Physical Exam Constitutional General appearance: No acute [...] Auscultation of lungs: Clear to auscultation. Cardiovascular Palpation of heart: Normal PMI, no thrills. Auscultation of heart: Normal rate and rhythm, normal S1 and S2, without murmurs. Examination of extremities for edema and/or varicosities: Normal. Abdomen Abdomen: Non-tender, no masses. Liver and spleen: No hepatomegaly or splenomegaly. Lymphatic Palpation of lymph nodes in neck: No lymphadenopathy. Musculoskeletal Gait and station: Abnormal. Antalgic. Digits and nails: Normal without clubbing or cyanosis. Inspection/palpation of joints, bones, and muscles: Abnormal. Tenderness along greater trochanter. Skin Skin and subcutaneous tissue: Normal without rashes or lesions. Neurologic Cranial nerves: Cranial nerves 2-12 intact. Reflexes: 2+ and symmetric. Sensation: No sensory loss. Psychiatric Orientation to person, place, and time: Normal. Mood and affect: Normal. Assessment 1. Hip pain, left (379.45) (D15.602) Plan Arthritis 1. Stop: Mirtazapine 15 MG Oral Tablet Rx By: Toney Munroe; Dispense: 90 Days ; #:90 Tablet; Refill: 3; For: Arthritis; EMA = N; Sent To:[facility] [employer]; Last Updated By: Lashaun Kathleen; 08/31/2014 4:36:00 PM Esophageal reflux 2. Stop: NexIUM 40 MG Oral Capsule Delayed Release Rx By: Toney Munroe; Dispense: 30 Days ; #:60 Capsule Delayed Release; Refill: 3; For: Esophageal reflux; EMA = N; Sent To: [facility]; Last Updated By: Lashaun Kathleen; 08/31/2014 4:35:59PM Health Maintenance 3. Stop: ALPRAZolam 0.25 MG Oral Tablet Rx By: Toney Munroe; Dispense: 30 Days ; #:60 Tablet; Refill: 1; For: Health Maintenance; EMA = N;Record; Last Updated By: Lashaun Kathleen; 08/31/2014 4:36:00 PM 4. Stop: Diclofenac Sodium 50 MG Oral Tablet Delayed Release Rx By: Toney Munroe; Dispense: 0 Days ; #:120 Tablet Delayed Release; Refill: 0; For: Health Maintenance; EMA = N; Sent To: [employer]; Last Updated By: Lashaun Kathleen; 08/31/2014 4:36:00PM 5. Stop: Diclofenac Sodium 75 MG Oral Tablet Delayed Release Rx By: Toney Munroe; Dispense: 30 Days ; #:60 Tablet Delayed Release; Refill: 0; For: Health Maintenance; EMA = N; Sent To: [facility]; Last Updated By: Lashaun Kathleen; 08/31/2014 4:36:00PM 6. Stop: Dicyclomine HCl - 10 MG Oral Capsule Rx By: Toney Munroe; Dispense: 0 Days ; #:240 Capsule; Refill: 0; For: Health Maintenance; EMA = N; Sent To: [employer]; Last Updated By: Lashaun Kathleen; 08/31/2014 4:35:59 PM Hip pain, left 7. Start: TraMADol HCl - 50 MG Oral Tablet (Ultram 50 MG Oral Tablet); TAKE 1 TABLET 3 TIMES DAILY NEEDED Rx By: Clement Young; Dispense: 20 Days ; #:60 Tablet; Refill: 0; For: Hip pain, left; EMA = N; Print Rx Unlinked 8. Stop: CeleBREX CAPS Dispense: 0 Days ; #: Sufficient CAPS; Refill: 0; EMA = N; Record; Last Updated By: Lashaun Kathleen; 08/31/2014 4:35:59 PM I have discussed the need to do range of motion exercises and if she wants would consider a steroidinjection at the site of maximal tenderness on the greater trochanter. She will consider this and she is to continue her NSAIDs and may need a follow up with ortho. Signatures Electronically signed by : Clement Young M.D.; Sep 18 2014 3:03PM CRADLE SLIDE MAKER (Author) documented in this encounter Plan of Treatment Upcoming Encounters Date Type Department Care Team (Late st Contact Info) Description 11/14/2024 8:00 AM CRADLE SLIDE MAKER Office Visit [facility] Multispecialty Care - [address], [address] [place] [phone] Montserrat Oliver NP 3 [facility] [address] [place] [address] 12/06/2024 9:30 AM CRADLE SLIDE MAKER Appointment [facility] Open MRI [address] [place] [address] [place] [address] [facility] [address] [place] [phone] 03/02/2025 3:20 PM CDT Office Visit [facility] Family & Internal Medicine - [address] [phone] [place] [address] [address] [place] [address] documented as of this encounter Visit Diagnoses Not on filedocumented in this encounter
--- OUTSIDE RECORDS SUMMARY | 2024-11-13 17:15 | XMS_ITS | Encounter Summary ---
Author Organization [facility] Address [address] [place] [address]. [place], [place] [address] [place] [address] Care Team Providers Care Parts Processor Name Role Phone Unavailable Primary Care Provider Unavailabl e Encounter Details Date Type Department Care Team (Latest Contact Info) Description 02/18/2017 Abstract [facility] Medical Group , Generic Conversion, [...] Notes * Generic Conversion MD Jerrod - 02/18/2017 10:16 AM CDT Message Recorded as Task Date: 02/17/2017 02:46 PM, Created By: Bianca Thornton Task Name: Call Back Assigned To: [facility]-kylah Nurse Team Regarding Patient: Hans Pascual, Status: Active Comment: Bianca Thornton - 17 Feb 2017 2:46 PM TASK CREATED she is wanting to start PT. she wants to get the ball rolling on this. didn't know if you was ok with [facility] [place]. Her gait is off due to this boot. ins: [employer]. cpb [phone] Argelia Chan - 17 Feb 2017 4:08 PM TASK REASSIGNED: Previously Assigned To [facility]-Jimena Nurse Team Please advise. Thank you García Hess - 18 Feb 2017 8:36 AM TASK REPLIED TO: Previously Assigned To García Hess ok for referral to PT Argelia Chan - 18 Feb 2017 10:28 AM TASK EDITED Left detail message with patient and to call if any questions. Also called home number and spoke toher . Plan 1. Physical Therapy Referral Outpatient Evaluate and treat Status: Need Information - Financial Authorization Requested for: 18Feb2017 Ordered; For: Leg pain, posterior, right; Ordered By: García Hess Performed: Order Comments:Patient requesting [facility] [place] Due: 04Mar2017; Last Updated By: Argelia Chan; 02/18/2017 10:17:51 AM Signatures Electronically signed by : Argelia Chan L.P.N.; Feb 18 2017 10:28AM FINISH REPAIRER (Author) documented in this encounter Plan of Treatment Upcoming Encounters Date Type Department Care Team (Late st Contact Info) Description 11/14/2024 8:00 AM FINISH REPAIRER Office Visit [facility] Multispecialty Care - [facility] 3 [facility], [address] [place] [phone] Montserrat Oliver NP 3 [facility] [address] [place] [address] 12/06/2024 9:30 AM FINISH REPAIRER Appointment [facility] Open MRI [address] [place] [address] [place] [address] [facility]. [address] [place] [address] 03/02/2025 3:20 PM CDT Office Visit [facility] Family & Internal Medicine - [address] [phone] [place] [address] [facility]. [address] [place] [phone] documented as of this encounter Visit Diagnoses Not on filedocumented in this encounter
--- OUTSIDE RECORDS SUMMARY | 2024-11-13 17:15 | XMS_ITS | Encounter Summary ---
Author Organization [facility] Address [address] [place] [address]. [place] [address] [place] [address] Care Team Providers Care Conservation Of Resources Commissioner Name Role Phone Unavailable Primary Care Provider Unavailabl e Encounter Details Date Type Department Care Team (Latest Contact Info) Description 10/18/2012 Abstract [facility] Medical Group Social History Tobacco Use Types Packs/Day Years Used Date Smoking Tobacco: Never Assessed Comments Unknown Sex and Gender Information Value Date Recorded Sex Assigned at Not on file Legal Sex Female 8:16 PM CDT Gender Identity Not on file Sexual Orientation Not on file documented as of this encounter Progress Notes * Toney Munroe MD - 10/18/2012 10:06 AM CST Message Message: Per Dr. Munroe, Diclofenac 50mg was called in to [facility] for Hans. Directions areas follows: Take 1 tablet with food QAM, take 1 tablet with food midday daily, take two tablets with food in the evening daily. MIW Plan 1. Diclofenac Sodium 50 MG Oral Tablet Delayed Release; 1 tablet with food QAM, 1 tablet with food at noon daily, 2 tablets with food in the evening daily; Therapy: [id number] to (Last Rx:[id number]) Signatures Electronically signed by : Tabitha Dong, ; Oct 18 2012 10:09AM (Author) RENOVATOR documented in this encounter Plan of Treatment Upcoming Encounters Date Type Department Care Team ( Contact Info) Description 11/14/2024 8:00 AM HAT RENOVATOR Office Visit [facility] Medical Group Multispecialty Care - [address] [place] [address] Montserrat Oliver NP 3 [facility] [address] [place] [address] 12/06/2024 9:30 AM HAT RENOVATOR Appointment [facility] Open MRI [address] [place] [address] [place] [address] [address] [place] [phone] 03/02/2025 3:20 PM CDT Office Visit [facility] Medical Group Family & Internal Medicine - [address] [phone] [place] [address] [address] [place] [address] documented as of this encounter Visit Diagnoses Not on filedocumented in this encounter
--- OUTSIDE RECORDS SUMMARY | 2024-11-13 17:15 | XMS_ITS | Encounter Summary ---
Author Organization [facility] Address [address] [place] [address]. [place] [address] [place] [address] Care Team Providers Care Security Engineer Name Role Phone Unavailable Primary Care Provider Unavailabl e Encounter Details Date Type Department Care Team (Latest Contact Info) Description 02/24/2013 Abstract [facility] Medical Group Social History Tobacco [...] Contact Info) Description 11/14/2024 8:00 AM SOCIAL HUMAN SERVICES ASSISTANTS Office Visit [facility] Medical [facility] Multispecialty Care - [facility] 3 [facility], [address] [place] [address] Montserrat Oliver, QA INTERNSHIP 3 [facility] [address] [place] [address] 12/06/2024 9:30 AM SOCIAL HUMAN SERVICES ASSISTANTS Appointment [facility] Open MRI [address] [place] [address] [place] [address] [address] [place] [address] 03/02/2025 3:20 PM CDT Office Visit [facility] Medical Group Family & Internal Medicine - [place] [address] [place] [address] [place] [address] [facility]. [address] [place] [address] documented as of this encounter Visit Diagnoses Not on filedocumented in this encounter
--- OUTSIDE RECORDS SUMMARY | 2024-11-13 17:15 | XMS_ITS | Encounter Summary ---
Author Organization [facility] Address [address] [place] [address]. [place] [address] [place] [address] Care Team Providers Care Spinning Frame Changer Name Role Phone Jaspreet Pearl MD Primary Care Provider Felipe archerelijah Encounter Details Date Type Department Care Team (Late st Contact Info) Description 10/25/2010 Abstract [facility] [address] [place] [address] [place] [address] [facility] [address] [address] Social History Tobacco Use Types Packs/Day Years [...] st Contact Info) Description 11/14/2024 8:00 AM DAIRY PROCESSING SUPERVISOR Office Visit [facility] Multispecialty Care - [facility] 3 [facility], [address] [place] [address] Montserrat Oliver NP [address] [facility] [address] [place] [address] 12/06/2024 9:30 AM DAIRY PROCESSING SUPERVISOR [facility] [address] [place] [address] [place] [address] [facility] [address] [place], [place] [phone] 03/02/2025 3:20 PM CDT Office Visit [facility] Medical Group Family & Internal Medicine [facility] [address] [place] [address] [place] [address] [facility]. [address] [place] [address] documented as of this encounter Visit Diagnoses Diagnosis Cystitis Cystitis, unspecified documented in this encounter Care Teams Spinning Frame Changer Relationship Specialty Start Date End Date Jaspreet Pearl MD PCP - General INTERNAL MEDICINE 11/30/18 02/18/23 documented as of this encounter
--- OUTSIDE RECORDS SUMMARY | 2024-11-13 17:15 | XMS_ITS | Encounter Summary ---
Author Organization [facility] Address [address] [place] [address]. [place] [address] [place] [address] Care Team Providers Care Container Finishing Inspector Name Role Phone Unavailable Primary Care Provider Unavailabl e Encounter Details Date Type Department Care Team (Latest Contact Info) Description 10/05/2012 Abstract [facility] Medical Group Social History Tobacco Use [...] st Contact Info) Description 11/14/2024 8:00 AM NUCLEAR MEDICINE TECH Office Visit [facility] Medical [facility] Multispecialty Care - [facility] 3 [facility], [address] [place] [address] Montserrat Oliver, SUSTAINABLE AGRICULTURE FACULTY 3 [facility] [address] [place] [address] 12/06/2024 9:30 AM NUCLEAR MEDICINE TECH Appointment [facility] Open MRI [address] [place] [address] [place] [address] [address] [place] [address] 03/02/2025 3:20 PM CDT Office Visit [facility] Medical Group Family & Internal Medicine - [place] [address] [place] [address] [place] [address] [facility]. [address] [place] [address] documented as of this encounter Visit Diagnoses Not on filedocumented in this encounter
--- OUTSIDE RECORDS SUMMARY | 2024-11-13 17:15 | XMS_ITS | Encounter Summary ---
Author Organization [facility] Address [address] [place] [address]. [place] [address] [place] [address] Care Team Providers Care Timber Sizer Name Role Phone Unavailable Primary Care Provider Unavailabl e Encounter Details Date Type Department Care Team (Late st Contact Info) Description 02/28/2018 Abstract [facility] Group Family & Internal Medicine [address] [address] Ariane Solares MD Social History Tobacco Use Types Packs/Day Years Used Date Smoking Tobacco: Never Assessed Comments Unknown Sex and Gender Information Value Date Recorded Sex Assigned at Not on file Legal Sex Female 8:16 PM CDT Gender Identity Not on file Sexual Orientation Not on file documented as of this encounter Last Filed Vital Signs Vital Sign Reading Time Taken Comments Blood Pressure 118/68 02/28/2018 8:05 AM CDT Pulse 86 02/28/2018 8:05 AM CDT Temperature - - Respiratory Rate - - Oxygen Saturation - - Inhaled Oxygen Concentration - - Weight - - Height - - Body Mass Index - - documented in this encounter Progress Notes * Ariane Solares MD - 02/28/2018 8:00 AM CDT Chief Complaint c/o extremely sore throat, patient states she has nott taken medications or really been eating because of it, has body aches and was running a 102 fever yesterday History of Present Illness Pharyngitis: The patient is being seen for an initial evaluation of pharyngitis. Symptoms: sore throat, swollen glands, fever and chills. The pain is located on the right side more than the left. Thepain radiates to the left ear and right ear. The patient describes the pain as sharp. Onset was gradual 2 hour(s) ago. The symptoms occur constantly. She describes this as severe and worsening. Associated symptoms: headache, ear pain and anorexia. Risk factors: day care attendance. Review of Systems Constitutional: fever, chills and feeling poorly. ENT: earache and sore throat, but no nasal discharge. Respiratory: no shortness of breath and no cough. Gastrointestinal: no abdominal pain. Neurological: no dizziness. Active Problems 1. Amenorrhea (626.0) (N91.2) 2. [...] BY MOUTH EVERY 6 HOURS NEEDED; Therapy: [id number] to (Last Rx:19Feb2017) Requested for: 19Feb2017 Ordered 2. Enbrel 50 MG/ML Subcutaneous Solution Prefilled Syringe; INJECT 50MG ONCE A WEEK; Therapy: 02Pfj9844 to (Evaluate:23Mar2017) Recorded 3. Folic Acid 1 MG Oral Tablet; TAKE 1 TABLET DAILY; Therapy: 92Rmd6643 to (Evaluate:95Soe1703) Recorded 4. Methotrexate 2.5 MG Oral Tablet; TAKE 8 TABLET Weekly; Therapy: 28Feb2018 to Recorded 5. MiraLax Oral Packet; MIX 1 PACKET IN 8 OUNCES OF LIQUID AND DRINK ONCE DAILY; Therapy: (Recorded:06Tqb2500) to Recorded 6. Multi-Vitamins TABS; TAKE 2 TABLET Daily; Therapy: (Recorded:34Prx7525) to Recorded 7. Nabumetone 500 MG Oral Tablet; TAKE 2 TABLET TWICE DAILY; Therapy: 47Ixf8669 to Recorded 8. [place]-3 Complex 192-251-11 MG-MG-UNIT Oral Capsule; Take one cap daily; Therapy: (Recorded:04Dec2014) to Recorded 9. Premarin 0.625 MG/GM Vaginal Cream; Insert 0.5 gram 3 times weekly at hs; Therapy: 35Aru3034 to (Evaluate:33Dia0010) Recorded Allergies 1. Levaquin TABS Vitals Recorded: 28Feb2018 08:05AM Temperature 99.6 F Heart Rate 86 Respiration 20 Systolic 118 Diastolic 68 O2 Saturation 98 Unable to obtain weight Patient refused Physical Exam Constitutional General appearance: No acute distress, well appearing and well nourished. Eyes Conjunctiva and lids: No swelling, erythema or discharge. Ears, Nose, Mouth, and Throat Otoscopic examination: Tympanic membranes translucent with normal light reflex. Canals patent without erythema. Oropharynx: Abnormal. tonsils enlarge R> L.. Pulmonary Respiratory effort: No increased work of breathing or signs of respiratory distress. Auscultation of lungs: Clear to auscultation. Cardiovascular Auscultation of heart: Normal rate and rhythm, normal S1 and S2, without murmurs. Examination of extremities for edema and/or varicosities: Normal. Abdomen Abdomen: Non-tender, no masses. Lymphatic Palpation of lymph nodes in neck: No lymphadenopathy. bilat LN enlargement.. Musculoskeletal Digits and nails: Normal without clubbing or cyanosis. Psychiatric Orientation to person, place, and time: Normal. Mood and affect: Normal. Results/Data *Rapid Strep Test In Office 28Feb2018 08:21AM Ariane Solares Test Name Result Flag Reference *Rapid Strep In Office Positive A Internal QC Verified Yes Assessment 1. Acute pharyngitis (462) (J02.9) Strep positive. WIll treat with augmentin. Plan Acute pharyngitis 1. Amoxicillin-Pot Clavulanate 875-125 MG Oral Tablet; TAKE 1 TABLET EVERY 12 HOURS DAILY Rx By: Ariane Solares; Dispense: 7 Days ; #:14 Tablet; Refill: 0; For: Acute pharyngitis; EMA = N; Verified Transmission to [employer].; Last Updated By: Crystal Tafoya; 02/28/2018 8:20:24 AM Make sure to drink plenty of fluids and get plenty of rest, try tylenol OTC PRN for myalgias/chills RTC as scheduled or sooner if no improvement Refilled dicoclomine but needs FU apt for future refills Signatures Electronically signed by : Ariane Solares M.D.; Feb 28 2018 8:26AM HOOKER MACHINE TENDER (Author) * Ariane Solares MD - 02/28/2018 8:00 AM CDT To whom it may concern, Hans was seen in my office today for an acute illness. Ariane Solares MD Electronically signed by:Ariane Solares M.D. Feb 28 2018 8:21AM HOOKER MACHINE TENDER documented in this encounter Plan of Treatment Upcoming Encounters Date Type Department Care Team (Late st Contact Info) Description 11/14/2024 8:00 AM HOOKER MACHINE TENDER Office Visit [facility] Multispecialty Care - [facility] 3 [facility], [address] [place] [phone] Montserrat Oliver NP [address] [facility] [address] [place] [address] 12/06/2024 9:30 AM HOOKER MACHINE TENDER Appointment [facility] Open [facility] [address] [place], [place] [phone] [place] [address] [address] [place] [address] 03/02/2025 3:20 PM CDT Office Visit [facility] Medical Group Family & Internal Medicine [facility] [address] [place] [phone] [place] [address] [place] [address] documented as of this encounter Procedures Procedure Name Priority Date/Time Associated Diagnosis Comments INFLUENZA A & B Routine 02/28/2018 8:39 AM CDT STREP A RAPID Routine 02/28/2018 8:21 AM CDT documented in this encounter Results * INFLUENZA A & B (02/28/2018 8:39 AM CDT) INFULENZA A AB Negative [facility] OUP TO EPIC CONVERSION INFLUENZA B AB Negative [facility] OUP TO EPIC CONVERSION Internal Control: Yes [facility] TO EPIC CONVERSION 02/28/2018 8:39 AM CDT 02/28/2018 8:39 AM CDT Narrative [facility] TO EPIC CONVERSION - 02/28/2018 8:39 AM CDT Result Communication: No patient communication needed at this time Ariane Solares MD MICROBIOLOGY - GENERAL ORDERABLE S Final Result [facility] TO EPIC CONVERSION * (ABNORMAL) STREP A RAPID (02/28/2018 8:21 AM CDT) RAPID STREP TEST Positive(A ) [facility] TO EPIC CONVERSION Internal Control: Yes [facility] TO EPIC CONVERSION 02/28/2018 8:21 AM CDT 02/28/2018 8:21 AM CDT Narrative [facility] TO EPIC CONVERSION - 02/28/2018 8:21 AM CDT Result Communication: No patient communication needed at this time us Ariane Solares MD MICROBIOLOGY - GENERAL ORDERABLE S Final Result [facility] CONVERSION documented in this encounter Visit Diagnoses Not on filedocumented in this encounter
--- OUTSIDE RECORDS SUMMARY | 2024-11-13 17:15 | XMS_ITS | Encounter Summary ---
Author Organization [facility] Address [facility] [place] [address] [place] [address] Care Team Providers Care Manager Epic Name Role Phone Unavailable Primary Care Provider Unavailabl e Encounter Details Date Type Department Care Team (Latest Contact Info) Description 11/03/2012 Abstract [facility] [place] [address] [address] Social History Tobacco Use Types Packs/Day Years Used Date Smoking Tobacco: Never Assessed Comments Unknown Sex and Gender Information Value Date Recorded Sex Assigned at Not on file Legal Sex Female 8:16 PM CDT Gender Identity Not on file Sexual Orientation Not on file documented as of this encounter Progress Notes * Toney Munroe MD - 11/03/2012 5:49 AM CST Message On 11-02-2012 Perez Cervantes MD carpenters helper at [facility] called Erika is improving on diclofenac 50mg BID and 75 MG QHS, however ALT is up to 124 and alk phos is elevated. Acute hepatitis serology is negative. He believes her polyarthritis has a viral cause. Parvovirus PCR is pending. 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 Current Meds 1. Bentyl CAPS; TAKE 1 CAPSULE EVERY 6 HOURS DAILY; Therapy: (Recorded:23Sep2012) to 2. CeleBREX CAPS; Therapy: (Recorded:14Oct2012) to 3. Diclofenac Sodium 50 MG Oral Tablet Delayed Release; 1 tablet with food QAM, 1 tablet with food at noon daily, 2 tablets with food in the evening daily; Therapy: 18Oct2012 to (Last Rx:39Buv8135) Requested for: 18Oct2012 4. Diclofenac Sodium 75 MG Oral Tablet Delayed Release; TAKE ONE TABLET BY MOUTH TWICE A DAY WITH FOOD; Therapy: 17Oct2012 to (Evaluate:16Nov2012) Requested for: 17Oct2012; Last Rx:17Oct2012 5. MiraLax PACK; Therapy: (Recorded:14Oct2012) to 6. Mirtazapine 15 MG Oral Tablet; TAKE 1/2 TO 1 TABLET AT BEDTIME; Therapy: 14Oct2012 to (Evaluate:09Oct2013) Requested for: 14Oct2012; Last Rx:14Oct2012 7. Multi-Vitamin TABS; Therapy: (Recorded:14Oct2012) to 8. NexIUM 40 MG Oral Capsule Delayed Release; TAKE 1 CAPSULE ONCE DAILY; Therapy: (Recorded:23Sep2012) to 9. [place]-3 Complex CAPS; Therapy: (Recorded:14Oct2012) to 10. TraMADol HCl 50 MG Oral Tablet; Take 1-2 tablets every 6 hours as needed; Therapy: 14Oct2012 to (Last Rx:14Oct2012) 11. Vitamin B12 TABS; Therapy: (Recorded:14Oct2012) to 12. Xanax 0.25 MG Oral Tablet; TAKE 1 TABLET DAILY; Therapy: (Recorded:23Sep2012) to 13. ZyrTEC-D Allergy & Congestion TB12; Therapy: (Recorded:14Oct2012) to GING OPERATOR documented in this encounter Plan of Treatment Upcoming Encounters Date Type Department Care Team (Late st Contact Info) Description 11/14/2024 8:00 AM CHARGING OPERATOR Office Visit [facility] Multispecialty Care - [address], [address] [place] [phone] Montserrat Oliver NP [address] [facility] [facility] [address] [place] [address] 12/06/2024 9:30 AM CHARGING OPERATOR Appointment [facility] Open MRI [address] [place] [address] [place] [address] [address] [place] [address] 03/02/2025 3:20 PM CDT Office Visit [facility] Family & Internal Medicine - [address] [phone] [place] [address] [address] [place] [phone] documented as of this encounter Visit Diagnoses Not on filedocumented in this encounter
--- OUTSIDE RECORDS SUMMARY | 2024-11-13 17:15 | XMS_ITS | Encounter Summary ---
Author Organization [facility] Address [address] [place] [address]. [place] [address] [place] [address] Care Team Providers Care Amusement Park Ride Mechanic Name Role Phone Unavailable Primary Care Provider Unavailabl e Encounter Details Date Type Department Care Team (Late st Contact Info) Description 10/20/2016 Abstract [facility] Medical Group Family & Internal Medicine [facility] [phone] [place] [phone] [place] [phone] [place] [phone] Social History Tobacco Use Types Packs/Day Years Used Date Smoking Tobacco: Never Assessed Comments Unknown Sex and Gender Information Value Date Recorded Sex Assigned at Not on file Legal Sex Female 8:16 PM CDT Gender Identity Not on file Sexual Orientation Not on file documented as of this encounter Last Filed Vital Signs Vital Sign Reading Time Taken Comments Blood Pressure 110/70 10/20/2016 11:42 AM RFP WRITER Pulse 82 10/20/2016 11:42 AM RFP WRITER Temperature - - Respiratory Rate - - Oxygen Saturation - - Inhaled Oxygen Concentration - - Weight 73.5 kg (162 lb) 10/20/2016 11:42 AM RFP WRITER Height 170.2 cm (5' 7 ) 10/20/2016 11:42 AM RFP WRITER Body Mass Index 25.37 10/20/2016 11:42 AM RFP WRITER documented in this encounter Progress Notes * Clement Young MD - 10/20/2016 11:45 AM CST Chief Complaint Pt here with c/o sore throat History of Present Illness Sore Throat: [facility] presents with complaints of sore throat. Associated symptoms include dysphagia, odynophagia, nasal congestion and swollen glands, but no postnasal drainage, no stridor, no fever, no chills, no headache, no neck stiffness, no facial pain, nonausea, no vomiting, no cough, no rash and no fatigue. Review of Systems See HPI for pertinent positives. Constitutional: feeling poorly and feeling tired, but no fever, no chills and no recent weight loss. ENT: sore throat, but no earache, no hearing loss and no nasal discharge. Cardiovascular: Normal. Respiratory: no shortness of breath, no cough and no wheezing. Gastrointestinal: no abdominal pain, no vomiting and no diarrhea. Genitourinary: no dysuria. Musculoskeletal: no limb swelling. Neurological: no dizziness. Psychiatric: Normal. Active Problems 1. Amenorrhea (626.0) [...] Tablet; TAKE 1 TABLET DAILY DIRECTED; Therapy: (Recorded:70Bjy8759) to Recorded Dispense: 0 Days ; #: Sufficient Tablet; Refill: 0; EMA = N; Record; Last Updated By: Yohana Rodriguez;06/26/2015 8:33:57 AM 2. Dicyclomine HCl - 20 MG Oral Tablet; TAKE 1 TABLET BY MOUTH EVERY 6 HOURS NEEDED; Therapy: 72Sfg4388 to (Last Rx:29Nov2015) Requested for: 29Nov2015 Ordered Rx By: Clement Young; Dispense: 0 Days ; #:40 TAB; Refill: 0; For: Irritable bowel syndrome; EMA= N; Verified Transmission to [employer]; Last Updated By: Vilma TafoyaJ&J Solutionsgagan; 10/20/201611:58:28 AM 3. Enbrel 50 MG/ML Subcutaneous Solution Prefilled Syringe; INJECT 50MG ONCE A WEEK; Therapy: 49Bpp3130 to (Evaluate:75Byu6077) Recorded Dispense: 28 Days ; #: Sufficient ML; Refill: 0; EMA = N; Record; Last Updated By: Yohana Rodriguez; 06/26/2015 8:33:57 AM 4. Folic Acid 1 MG Oral Tablet; TAKE 1 TABLET DAILY; Therapy: 02Kke5610 to (Evaluate:23Zui1873) Recorded Dispense: 30 Days ; #:30 Tablet; Refill: 3; EMA = Y; Record; Last Updated By: Lashaun Kathleen; 12/04/2014 2:26:01 PM 5. Methotrexate Sodium 1 GM Injection Solution Reconstituted; INJECT 0.8 ML Weekly; Therapy: 60Iuh9360 to Recorded Dispense: 0 Days ; #: [...] Multi-Vitamins TABS; TAKE 2 TABLET Daily; Therapy: (Recorded:95Emp2782) to Recorded Dispense: 0 Days ; #: Sufficient Tablet; Refill: 0; EMA = N; Record; Last Updated By: Yohana Rodriguez;06/26/2015 8:33:56 AM 8. Nabumetone 500 MG Oral Tablet; TAKE 2 TABLET TWICE DAILY; Therapy: 18Oct2015 to Recorded Dispense: 0 Days ; #: Sufficient Tablet; Refill: 0; For: Inflammatory arthritis; EMA = N; Record; Last Updated By: Yohana Rodriguez; 10/18/2015 8:38:42 AM 9. [place]-3 Complex 192-251-11 MG-MG-UNIT Oral Capsule; Take one cap daily; Therapy: (Recorded:04Dec2014) to Recorded Dispense: 0 Days ; #: Sufficient Capsule; Refill: 0; EMA = N; Record; Last Updated By: Lashaun Kathleen; 12/04/2014 2:26:00 PM 10. Premarin 0.625 MG/GM Vaginal Cream; Insert 0.5 gram 3 times weekly at hs; Therapy: 02Aug2014 to (Evaluate:05Enz6670) Recorded Dispense: 0 Days ; #: Sufficient X 30 GM Tube; Refill: 0; EMA = N; Record; Last Updated By: Lashaun Kathleen; 12/04/2014 2:26:01 PM 11. TraMADol HCl - 50 MG Oral Tablet; Take one tab po BID prn; Therapy: 18Oct2015 to (Last Rx:09Gjr8052) Ordered Rx By: Clement Young; Dispense: 0 Days ; #:60 Tablet; Refill: 0; For: Arthritis; EMA = N; Record; Last Updated By: Argelia Chan; 03/31/2016 5:12:18 PM Allergies 1. Levaquin TABS Recorded By: Tamie Cosby; 09/23/2012 2:04:37 PM Vitals Recorded: 99Qjz9569 11:42AM Temperature 98.8 F Heart Rate 82 Respiration 16 Systolic 110 Diastolic 70 O2 Saturation 98 Height 5 ft 7 in Weight 162 lb BMI Calculated 25.37 BSA Calculated 1.85 Physical Exam Constitutional General appearance: No acute distress, well appearing and well nourished. obese. Eyes Conjunctiva and lids: No swelling, erythema or discharge. Pupils and irises: Equal, round and reactive to light. Ears, Nose, Mouth, and Throat External inspection of ears and nose: Normal. Otoscopic examination: Tympanic membranes translucent with normal light reflex. Canals patent without erythema. Oropharynx: Abnormal. posterior oropharyngeal erythema without exudate. Pulmonary Respiratory effort: No increased work of breathing or signs of respiratory distress. Auscultation of lungs: Clear to auscultation. Cardiovascular Auscultation of heart: Normal rate and rhythm, normal S1 and S2, without murmurs. Examination of extremities for edema and/or varicosities: Normal. Abdomen Abdomen: Non-tender, no masses. Lymphatic Palpation of lymph nodes in neck: Abnormal. anterior adenopathy. Skin Skin and subcutaneous tissue: Normal without rashes or lesions. Neurologic Cranial nerves: Cranial nerves 2-12 intact. Psychiatric Orientation to person, place, and time: Normal. Mood and affect: Normal. Assessment 1. Pharyngitis (462) (J02.9) Plan Irritable bowel syndrome 1. Dicyclomine HCl - 20 MG Oral Tablet; TAKE 1 TABLET BY MOUTH EVERY 6 HOURS NEEDED Rx By: Clement Young; Dispense: 0 Days ; #:40 Tablet; Refill: 0; For: Irritable bowel syndrome; EMA = N; Sent To: [employer] Pharyngitis 2. Amoxicillin 500 MG Oral Capsule; TAKE 1 CAPSULE 3 TIMES DAILY Rx By: Clement Young; Dispense: 10 Days ; #:30 Capsule; Refill: 0; For: Pharyngitis; EMA = N; Sent To: [employer]. Signatures Electronically signed by : Clement Young M.D.; Oct 26 2016 12:24PM RFP WRITER (Author) documented in this encounter Plan of Treatment Upcoming Encounters Date Type Department Care Team (Late st Contact Info) Description 11/14/2024 8:00 AM RFP WRITER Office Visit [facility] Multispecialty Care - [address], Suite [facility] [place] [phone] Montserrat Oliver NP [address] [place] [address] [place] [address] 12/06/2024 9:30 AM RFP WRITER Appointment [facility] Open MRI [address] [place] [address] [place] [address] [address] [place] [address] 03/02/2025 3:20 PM CDT Office Visit [facility] Medical Group Family & Internal Medicine - [address] [phone] [place] [address] [facility] [address]. [address] [place] [address] documented as of this encounter Visit Diagnoses Not on filedocumented in this encounter
--- OUTSIDE RECORDS SUMMARY | 2024-11-13 17:15 | XMS_ITS | Encounter Summary ---
Author Organization [facility] Address [address] [place] [address]. [place] [address] [place] [address] Care Team Providers Care Talent Acquisition Specialist Name Role Phone Unavailable Primary Care Provider Unavailabl e Encounter Details Date Type Department Care Team (Latest Contact Info) Description 03/31/2016 Abstract [facility] Medical Group Social [...] st Contact Info) Description 11/14/2024 8:00 AM SECTION PLOTTER OPERATOR Office Visit [facility] Medical [facility] Multispecialty Care - [facility] 3 [facility], [address] [place] [address] Montserrat Oliver, CHEF DE FROID 3 [facility] [address] [place] [address] 12/06/2024 9:30 AM SECTION PLOTTER OPERATOR Appointment [facility] Open MRI [address] [place] [address] [place] [address] [address] [place] [address] 03/02/2025 3:20 PM CDT Office Visit [facility] Medical Group Family & Internal Medicine - [place] [address] [place] [address] [place] [address] [facility]. [address] [place] [address] documented as of this encounter Visit Diagnoses Not on filedocumented in this encounter
--- OUTSIDE RECORDS SUMMARY | 2024-11-13 17:16 | XMS_ITS | Encounter Summary ---
Author Organization [facility] Address [address] [place] [address]. [place] [address] [place] [address] Care Team Providers Care Stove Fitter Name Role Phone Jaspreet Pearl MD Primary Care Provider Felipe rangel Encounter Details Date Type Department Care Team (Late st Contact Info) Description 10/14/2004 Abstract [facility] [address] [place] [address] , Generic Conversion, Social History Tobacco Use [...] (Late Contact Info) Description 11/14/2024 8:00 AM SPECIAL ASSEMBLIES SUPERVISOR Office Visit [facility] Medical Group Multispecialty Care - [facility] 3 [facility], [address] [place] [address] Montserrat Oliver, DOREEN 3 [facility] [address] [place] [address] 12/06/2024 9:30 AM SPECIAL ASSEMBLIES SUPERVISOR Appointment [facility] Open MRI [address] [facility] [place] [address] [place] [address] [address] [place] [address] 03/02/2025 3:20 PM CDT Office Visit [facility] Medical Group Family & Internal Medicine - [address] [address] [place] [address] [place] [address] documented as of this encounter Visit Diagnoses Not on filedocumented in this encounter Care Teams Stove Fitter Relationship Specialty Start Date End Date Jaspreet Pearl MD PCP - General INTERNAL MEDICINE 11/30/18 02/18/23 documented as of this encounter
--- OUTSIDE RECORDS SUMMARY | 2024-11-13 17:16 | XMS_ITS | Encounter Summary ---
Author Organization [facility] Address [address] [place] [address]. [place] [address] [place] [address] Care Team Providers Care Cash Management Officer Name Role Phone Jaspreet Pearl MD Primary Care Provider Felipe archerelijah Encounter Details Date Type Department Care Team (Late st Contact Info) Description 03/02/2005 Abstract [facility] [address] [place] [address] Toney Elizondo MD [address] [place] [address] Social History Tobacco Use Types Packs/Day Years [...] st Contact Info) Description 11/14/2024 8:00 AM CARGO SUPERVISOR Office Visit [facility] Medical Group Multispecialty Care - [facility] 3 [facility], [address] [place] [address] Montserrat Oliver NP 3 [facility] [address] [place] [address] 12/06/2024 9:30 AM CARGO SUPERVISOR Appointment Health system Open MRI [address] [place] [address] [place] [address] [facility] [place], [place] [phone] 03/02/2025 3:20 PM CDT Office Visit [facility] Medical Group Family & Internal Medicine [facility] [address] [place] [address] [place] [address] [facility]. [address] [place], [place] [phone] documented as of this encounter Visit Diagnoses Not on filedocumented in this encounter Care Teams Cash Management Officer Relationship Specialty Start Date End Date Jaspreet Pearl MD PCP - General INTERNAL MEDICINE 11/30/18 02/18/23 documented as of this encounter
--- OUTSIDE RECORDS SUMMARY | 2024-11-13 17:16 | XMS_ITS | Encounter Summary ---
Author Organization [facility] Address [address] [place] [address]. [place] [address] [place] [address] Care Team Providers Care Manager Convention Name Role Phone Jaspreet Pearl MD Primary Care Provider Felipe [email or web address] Encounter Details Date Type Department Care Team (Late st Contact Info) Description 03/03/2005 Abstract [facility] CONVERSION [address] [place] [address] Mathew Levine MD Social History Tobacco Use [...] (Late Contact Info) Description 11/14/2024 8:00 AM FLAP CURER Office Visit [facility] Multispecialty Care - [facility] [address], [address] [place] [address] Montserrat Oliver NP [address] [facility] [address] [facility] [address] [place] [address] 12/06/2024 9:30 AM FLAP CURER Appointment [facility] Open MRI [address] [place] [address] [place] [address] [place] [address] 03/02/2025 3:20 PM CDT Office Visit [facility] Family & Internal Medicine - [address] [address] [place] [address] [place] [address] documented as of this encounter Visit Diagnoses Not on filedocumented in this encounter Care Teams Manager Convention Relationship Specialty Start Date End Date Jaspreet Pearl MD PCP - General INTERNAL MEDICINE 11/30/18 02/18/23 documented as of this encounter
--- OUTSIDE RECORDS SUMMARY | 2024-11-13 17:44 | XMS_ITS | Clinical Summary ---
Author Organization [facility] Address [address] [place] [address] Care Team Providers Care Melter Operator Name Role Phone Dayanara Plaza MD Primary Care Provider [phone] Source Comments [facility],non-owned Affiliates and Associated Physician Practices is amultiple site organization consisting of ambulatory clinics and hospital sitesin [place], [place]. This disclosure is being madepursuant to the Care Everywhere program and may not contain all information available regarding this patient. Last updated 18.[facility] Allergies Active Allergy Reactions Criticality Noted Date [...] daily Active Azelastine HCl 137 MCG/SPRAY SOLN [facility] 2 sprays into the nose 2 times [...] Orders Only [facility] - Rheumatology [address] [place] [phone] Perez Cervantes MD Polyarthritis; Encounter for therapeutic drug monitoring; Encounter for long-term (current) use of medications 10/25/2024 Orders Only [facility] - Rheumatology [address] [place] [phone] Perez Cervantes MD 10/19/2024 [facility] [address] [place] [phone] Perez Cervantes MD MEDICATION REFILL 10/16/2024 Refill [facility] - Rheumatology [address], [place] [address] Christian Pemberton MD MEDICATION REFILL 10/05/2024 Lab Requisition [facility] - DermPath Lab [address] [facility], [place] [address] Eric Elida IsabelleDO 09/25/2024 2:32 PM MYSQL DATABASE DEVELOPER - 09/25/2024 11:59 PM MYSQL DATABASE DEVELOPER Hospital Encounter [facility] [address] [place] [address] Perez Cervantes MD Discharge Disposition: Home or Self Care 09/25/2024 1:40 PM MYSQL DATABASE DEVELOPER Office Visit [facility] - Rheumatology [address] [place] [phone] Perez Cervantes MD Polyarthritis (Primary Dx); Encounter for therapeutic drug monitoring 09/25/2024 Travel 09/01/2024 Orders Only [facility] - Rheumatology [address] [place] [address] Perez Cervantes MD Polyarthritis; Encounter for therapeutic drug monitoring; Encounter for long-term (current) use of medications 08/30/2024 Orders Only [facility] - Rheumatology [facility] [place] [address] Perez Cervantes MD from Last 3 Months [...] Comments Blood Pressure 118/78 09/25/2024 1:24 PM MYSQL DATABASE DEVELOPER Pulse 69 09/25/2024 1:24 PM MYSQL DATABASE DEVELOPER Temperature 36.6 ??C (97.9 ??F) 09/25/2024 1:24 PM CS T Respiratory Rate 16 06/09/2021 2:48 PM CDT Oxygen Saturation 98% 09/25/2024 1:24 PM MYSQL DATABASE DEVELOPER Inhaled Oxygen Concentration - - Weight 77.8 kg (171 lb 9.6 oz) 09/25/2024 1:24 P M MYSQL DATABASE DEVELOPER Height 172.7 cm (5' 8 ) 09/25/2024 1:24 PM MYSQL DATABASE DEVELOPER Body Mass Index 26.09 09/25/2024 1:24 PM MYSQL DATABASE DEVELOPER Plan of Treatment Upcoming Encounters Date Type Department Care Team (Late st Contact Info) Description 03/27/2025 1:00 PM CDT Office Visit [facility] - Rheumatology [address] [place] [address], [place] [phone] Perez Cervantes MD [address] [place] [address] [place] [phone] Health Maintenance Due Date Last Done Comments [...] QUANTIFERON-TB GOLD PLUS 1-TUBE 10/25/2024 7:42 AM MYSQL DATABASE DEVELOPER HEPATITIS C AB W/RFLX TO HCV RNA QN PCR Routine 10/25/2024 7:42 AM MYSQL DATABASE DEVELOPER Encounter for therapeutic drug monitoring HEPATITIS B SURFACE ANTIGEN W RFLX CONFIRMATION Routine 10/25/2024 7:42 AM MYSQL DATABASE DEVELOPER Encounter for therapeutic drug monitoring HEPATITIS B SURFACE ANTIBODY Routine 10/25/2024 7:42 AM MYSQL DATABASE DEVELOPER Encounter for therapeutic drug monitoring HEPATITIS B CORE ANTIBODY TOTAL Routine 10/25/2024 7:42 AM MYSQL DATABASE DEVELOPER Encounter for therapeutic drug monitoring URINALYSIS W/MICROSCOPIC REFLEX TO CULTURE Routine 10/25/2024 7:39 AM MYSQL DATABASE DEVELOPER Polyarthritis Encounter for therapeutic drug monitoring ERYTHROCYTE SEDIMENTATION RATE Routine 10/25/2024 7:39 AM MYSQL DATABASE DEVELOPER Polyarthritis Encounter for therapeutic drug monitoring C-REACTIVE PROTEIN Routine 10/25/2024 7: 39 AM MYSQL DATABASE DEVELOPER Polyarthritis Encounter for therapeutic drug monitoring COMPREHENSIVE METABOLIC PANEL Routine 10/25/2024 7:39 AM MYSQL DATABASE DEVELOPER Polyarthritis Encounter for therapeutic drug monitoring CBC W AUTO DIFFERENTIAL Routine 10/25/20 24 7:39 AM MYSQL DATABASE DEVELOPER Polyarthritis Encounter for therapeutic drug monitoring CULTURE URINE 10/25/2024 7:39 AM MYSQL DATABASE DEVELOPER CULTURE URINE REFLEXED II 10/25/2024 7:39 AM MYSQL DATABASE DEVELOPER DERMATOPATHOLOGY Routine 10/05/2024 10:3 3 AM MYSQL DATABASE DEVELOPER XR CHEST 2VW Routine 09/25/2024 2:53 PM MYSQL DATABASE DEVELOPER Encounter for therapeutic drug monitoring C-REACTIVE PROTEIN [...] QUANTIFERON-TB GOLD PLUS 1-TUBE (10/25/2024 7:42 AM MYSQL DATABASE DEVELOPER) Pathologist [facility] QuantiFERON TB Gold Plus NEGATIVE NEGATIVE [facility] [...] T-lymphocytes. For additional information, please refer to https://education.Socogame/faq/BPG002 (This link is being provided for informational/ educational purposes only.) Test Performed at: [facility] [address] [place], [place] ??[phone] NAVID SCOTT MD 10/25/2024 7:42 AM MYSQL DATABASE DEVELOPER 10/25/2024 7:42 AM MYSQL DATABASE DEVELOPER Perez Cervantes MD LAB - CHEMISTRY GERA DAVID [facility] [address] [place] [address] * HEPATITIS C AB W/RFLX TO HCV RNA QN PCR (10/25/2024 7:42 AM MYSQL DATABASE DEVELOPER) Pathologist [facility] Hepatitis C Antibody NON-REACTI VE NON-REACT ROMANA [facility] Comment: HCV antibody was non-reactive. There is no laboratory evidence of HCV infection. In most cases, no further action is required. However, if recent HCV exposure is suspected, a test for HCV RNA (test code 44147) is suggested. For additional information please refer to http://Meez.Socogame/faq/TLL99s1 (This link is being provided for informational/ educational purposes only.) Test Performed at: [facility] [address] [place], [place] ??[phone] NAVID SCOTT MD Blood BLOOD SPECIMEN / Unknown 10/25/2024 7:42 AM MYSQL DATABASE DEVELOPER 10/25/2024 7:42 AM MYSQL DATABASE DEVELOPER Perez Cervantes MD LAB - CHEMISTRY GERA DAVID Performing Organization Address [facility] Co de Phone Number [address] [address] * (ABNORMAL) HEPATITIS B SURFACE ANTIBODY (10/25/2024 7:42 AM MYSQL DATABASE DEVELOPER) Hepatitis B Virus Surface Antibody REACTIVE(A ) NON-REACT ROMANA [facility] Comment: Test Performed at: [facility] [address] [place] [address] ??[phone] NAVID SCOTT MD Blood BLOOD SPECIMEN / Unknown 10/25/2024 7:42 AM MYSQL DATABASE DEVELOPER 10/25/2024 7:42 AM MYSQL DATABASE DEVELOPER Perez Cervantes MD LAB - CHEMISTRY GERA DAVID Performing Organization Address [facility] Co de Phone Number [address] [address] * HEPATITIS B CORE ANTIBODY TOTAL (10/25/2024 7:42 AM MYSQL DATABASE DEVELOPER) Hepatitis B Core Virus Antibody Total NON-REACTI VE NON-REACT [facility]ANA [facility] Comment: For additional information, please refer to http://Meez.Socogame/faq/HOT779 (This link is being provided for informational/ educational purposes only.) Test Performed at: [facility] [address] [place] [address] ??[phone] NAVID SCOTT MD Blood BLOOD SPECIMEN / Unknown 10/25/2024 7:42 AM MYSQL DATABASE DEVELOPER 10/25/2024 7:42 AM MYSQL DATABASE DEVELOPER Perez Cervantes MD LAB - CHEMISTRY GERA MANDEEPDEMARCO Performing Organization Address [facility] de Phone Number [address] [address] * HEPATITIS B SURFACE ANTIGEN W RFLX CONFIRMATION (10/25/2024 7:42 AM MYSQL DATABASE DEVELOPER) Pathologist [facility] Hepatitis B Virus Surface Antigen NON-REACTI VE NON-REACT ROMANA [facility] Comment: For additional information, please refer to http://education.Socogame/faq/EFF112 (This link is being provided for informational/ educational purposes only.) Test Performed at: [facility] [address] [place] [address] ??[phone] NAVID SCOTT MD Blood BLOOD SPECIMEN / Unknown 10/25/2024 7:42 AM MYSQL DATABASE DEVELOPER 10/25/2024 7:42 AM MYSQL DATABASE DEVELOPER Perez Cervantes MD LAB - CHEMISTRY GERA DAVID Performing Organization Address [facility] de Phone Number [address] [address] * CULTURE URINE REFLEXED II (10/25/2024 7:39 AM MYSQL DATABASE DEVELOPER) Only the most recent of2 resultswithin the time period is included. [facility] Reflexive Urine Culture See Below [facility] Comment: CULTURE INDICATED - RESULTS TO FOLLOW Test Performed at: [facility] ??[phone] NAVID SCOTT MD 10/25/2024 7:39 AM MYSQL DATABASE DEVELOPER 10/25/2024 7:40 AM MYSQL DATABASE DEVELOPER Perez Cervantes MD LAB - MICROBIOLOGY O RDERABLES Performing Organization Address [facility] de Phone Number [address] [address] * (ABNORMAL) URINALYSIS W/MICROSCOPIC REFLEX TO CULTURE (10/25/2024 7:39 AM MYSQL DATABASE DEVELOPER) Only the most recent of2 resultswithin the time period is included. Color UA YELLOW YELLOW [facility] Appearance CLOUDY(A) CLEAR [facility] Specific [place] UA 1.023 1.001 - 1.035 [facility] pH [...] elements seen were reported. Test Performed at: [facility] ??[phone] NAVID SCOTT MD Urine URINE SPECIMEN OBTAINED BY CLEAN CATCH PROCEDURE / Unknown 10/25/2024 7:39 AM MYSQL DATABASE DEVELOPER 10/25/2024 7:40 AM MYSQL DATABASE DEVELOPER Perez Cervantes MD LAB - URINALYSIS ORD ERABLES Performing Organization Address [facility] de Phone Number [address] [address] * C-REACTIVE PROTEIN (10/25/2024 7:39 AM MYSQL DATABASE DEVELOPER) Only the most recent of2 resultswithin the time period is included. C-Reactive Protein <3.0 <8.0 mg/L [facility] Comment: Test Performed at: [facility] [address] ??[phone] NAVID SCOTT MD Blood BLOOD SPECIMEN / Unknown 10/25/2024 7:39 AM MYSQL DATABASE DEVELOPER 10/25/2024 7:40 AM MYSQL DATABASE DEVELOPER Perez Cervantes MD LAB - CHEMISTRY ORDE RABDEMARCO Performing Organization Address [facility] Co de Phone Number [address] [address] * CULTURE URINE (10/25/2024 7:39 AM MYSQL DATABASE DEVELOPER) Only the most recent of2 resultswithin the time period is included. Pathologist [facility] Culture [facility] Comment: ??CULTURE, URINE, ROUTINE ?Micro Number: ?[id number] ??Test Status: ? Final ??Specimen Source: ?? Urine ??Specimen Quality: ??Adequate ??Result: ?No Growth REPORT COMMENT: FASTING:YES Test Performed at: [facility] ??[phone] NAVID SCOTT MD 10/25/2024 7:39 AM MYSQL DATABASE DEVELOPER 10/25/2024 7:40 AM MYSQL DATABASE DEVELOPER Perez Cervantes MD LAB - MICROBIOLOGY O RDERABLES Performing Organization Address [facility] de Phone Number [address] [address] * ERYTHROCYTE SEDIMENTATION RATE (10/25/2024 7:39 AM MYSQL DATABASE DEVELOPER) Only the most recent of2 resultswithin the time period is included. Pathologist [facility] Erythrocyte Sedimentation Rate Westergren 6 < OR = 30 mm/h [facility] Comment: Test Performed at: [facility] [address] ??[phone] NAVID SCOTT MD Blood BLOOD SPECIMEN / Unknown 10/25/2024 7:39 AM MYSQL DATABASE DEVELOPER 10/25/2024 7:40 AM MYSQL DATABASE DEVELOPER Perez Cervantes MD LAB - HEMATOLOGY ORD ERABLES Performing Organization Address [facility] de Phone Number [address] [address] * (ABNORMAL) CBC WITH DIFFERENTIAL (10/25/2024 7:39 AM MYSQL DATABASE DEVELOPER) Only the most recent of2 resultswithin the time period is included. Pathologist [facility] White Blood Cell Count 4.5 3.8 - [...] 0.4 % [facility] Comment: Test Performed at: [facility] [place], [place] ??[address] NAVID SCOTT MD Blasts [facility] nRBC [facility] Comments [facility] Comment: Test Performed at: [facility] [place], [place] ??[phone] NAVID SCOTT MD Blood BLOOD SPECIMEN / Unknown 10/25/2024 7:39 AM MYSQL DATABASE DEVELOPER 10/25/2024 7:40 AM MYSQL DATABASE DEVELOPER Perez Cervantes MD LAB - HEMATOLOGY ORD ERABLES [facility] [address] [place] [address] * COMPREHENSIVE METABOLIC PANEL (10/25/2024 7:39 AM MYSQL DATABASE DEVELOPER) Only the most recent of2 resultswithin the [...] 29 U/L [facility] Comment: Test Performed at: [facility] ??[phone] NAVID SCOTT MD Blood BLOOD SPECIMEN / Unknown 10/25/2024 7:39 AM MYSQL DATABASE DEVELOPER 10/25/2024 7:40 AM MYSQL DATABASE DEVELOPER Perez Cervantes MD LAB - CHEMISTRY GERA DAVID Performing Organization Address City/State/[facility] Co mo Phone Number [facility] [address] [place] [address] * DERMATOPATHOLOGY (10/05/2024 10:33 AM MYSQL DATABASE DEVELOPER) Case Report Dermatopathology Report ? Case: [id number] ? Authorizing Provider: ??Elida Reyes, DO ?? Collected: ? 10/05/2024 10:33 AM ? Ordering Location: ? [facility] - ??Received: ?10/05/2024 04:35 PM ? DermPath Lab ? Pathologist: ? Kassandra Maurer MD ? Specimen: ?Skin, left upper arm ? 4 1:26 PM MYSQL DATABASE DEVELOPER DERMATOPATHOLOGY LABORATORY Final Diagnosis Specimen A. SKIN, left upper arm: LICHEN PLANUS-LIKE KERATOSIS (BENIGN LICHENOID KERATOSIS) (L82.1) 4 1:26 PM MYSQL DATABASE DEVELOPER DERMATOPATHOLOGY LABORATORY Clinical History R/O NMSC 4 1:26 PM MYSQL DATABASE DEVELOPER DERMATOPATHOLOGY LABORATORY Gross Description Specimen A: Received is one formalin filled container labeled with the patient's name and designated left upper arm. The specimen consists of a shave biopsy measuring 8x7x1 mm. Jar 0. 4 1:26 PM MYSQL DATABASE DEVELOPER DERMATOPATHOLOGY LABORATORY Microscopic Description Specimen A. SKIN, left upper arm: The epidermis is mildly acanthotic. There is a lichenoid infiltrate with vacuolar changes of basilar keratinocytes and scattered necrotic keratinocytes. 4 1:26 PM MYSQL DATABASE DEVELOPER DERMATOPATHOLOGY LABORATORY Disclaimer An external and internal positive and negative controls are appropriate for the histochemical, immunohistochemical and immunofluorescence stain(s) in this case (if any), except where stated explicitly. The performance characteristics of the stain(s) cited in this report were developed and its performance characteristic determined by the Dermatopathology Laboratory at [facility], directed by Dr. Robbin Dunbar. These tests need not be, and therefore are not, approved by the [place] Food and Drug Administration. The tests are used for clinical purposes. Billing Codes Specimen Charges Stain Charges 69019 1 4 1:26 PM MYSQL DATABASE DEVELOPER DERMATOPATHOLOGY LABORATORY Embedded Images 4 1:26 PM MYSQL DATABASE DEVELOPER DERMATOPATHOLOGY LABORATORY Pathology/Cytolo gy TISSUE SPECIMEN FROM SKIN / Unknown 10/05/2024 10:33 AM MYSQL DATABASE DEVELOPER 10/05/2024 4:35 PM MYSQL DATABASE DEVELOPER Elida Reyes DO LAB - PATHOLOGY/C YTOLOGY ORDERABLES Performing Organization Address City/State/[facility] Co de Phone Number DERMATOPATHOLOGY LABORATORY [facility] - Department of Dermatology [address], [address] [phone] * XR Chest 2Vw (09/25/2024 2:53 PM MYSQL DATABASE DEVELOPER) Anatomical Region Laterality Modality Chest Digital Radiogra phy 09/25/2024 8:41 PM MYSQL DATABASE DEVELOPER Impressions 09/25/2024 8:41 PM MYSQL DATABASE DEVELOPER IMPRESSION: No acute cardiopulmonary abnormalities. > Interpreting Provider: Cheryl Cespedes MD on 09/25/2024 8:41 PM Narrative 09/25/2024 8:41 PM MYSQL DATABASE DEVELOPER PROCEDURE: ??XR CHEST 2VW DATE/TIME OF EXAM: [...] RDERABLES from Last 3 Months Care Teams Melter Operator Relationship Specialty [place] [address] [address] PCP - General Family Medicine 03/27/24
--- OUTSIDE RECORDS SUMMARY | 2024-11-13 17:44 | XMS_ITS | Referral Summary ---
Author Organization [facility] Address [address] [address] Care Team Providers Care Photo Stylist Name Role Phone Dayanara Plaza MD Primary Care Provider [phone] Source Comments [facility],non-owned Affiliates and Associated Physician Practices is amultiple site organization consisting of ambulatory clinics and hospital sitesin [place], [place], [place] and [place]. This disclosure is being madepursuant to the Care Everywhere program and may not contain all information available regarding this patient. Last updated 18.[facility] Encounters Date Type Department Care Team Description 10/27/2024 Orders Only [facility] - Rheumatology [address] [place] [phone] Perez Cervantes MD Polyarthritis; Encounter for therapeutic drug monitoring; Encounter for long-term (current) use of medications 10/25/2024 Orders Only [facility] - Rheumatology [address] [place] [phone] Perez Ceravntes MD 10/19/2024 Refill [facility] - Rheumatology [address] [place] [phone] Perez Cervantes MD MEDICATION REFILL 10/16/2024 Refill [facility] - Rheumatology [address] [place] [phone] Christian Pemberton MD MEDICATION REFILL 10/05/2024 Lab Requisition [facility] - DermPath Lab [address] [facility] [place] [address] Elida Reyes 09/25/2024 2:32 PM MAINTENANCE ENGINEER OIL FIELD - 09/25/2024 11:59 PM MAINTENANCE ENGINEER OIL FIELD Hospital Encounter [facility] DIAGNOSTIC RAD OP [address] [place] [address] Perez Cervantes MD Discharge Disposition: Home or Self Care 09/25/2024 Travel 09/25/2024 1:40 PM MAINTENANCE ENGINEER OIL FIELD Office Visit [facility] - Rheumatology [address] [place] [address] Perez Cervantes MD Polyarthritis (Primary Dx); Encounter for therapeutic drug monitoring 09/01/2024 Orders Only [facility] - Rheumatology [address] [place] [address] Perez Cervantes MD Polyarthritis; Encounter for therapeutic drug monitoring; Encounter for long-term (current) use of medications 08/30/2024 Orders Only [facility] - Rheumatology [address] [place] [address] Perez Cervantes MD from Last 3 Months [...] daily Active Azelastine HCl 137 MCG/SPRAY SOLN [place] 2 sprays into the nose 2 times [...] Comments Blood Pressure 118/78 09/25/2024 1:24 PM MAINTENANCE ENGINEER OIL FIELD Pulse 69 09/25/2024 1:24 PM MAINTENANCE ENGINEER OIL FIELD Temperature 36.6 ??C (97.9 ??F) 09/25/2024 1:24 PM CS T Respiratory Rate 16 06/09/2021 2:48 PM CDT Oxygen Saturation 98% 09/25/2024 1:24 PM MAINTENANCE ENGINEER OIL FIELD Inhaled Oxygen Concentration - - Weight 77.8 kg (171 lb 9.6 oz) 09/25/2024 1:24 P M MAINTENANCE ENGINEER OIL FIELD Height 172.7 cm (5' 8 ) 09/25/2024 1:24 PM MAINTENANCE ENGINEER OIL FIELD Body Mass Index 26.09 09/25/2024 1:24 PM MAINTENANCE ENGINEER OIL FIELD Plan of Treatment Upcoming Encounters Date Type Department Care Team (Late st Contact Info) Description 03/27/2025 1:00 PM CDT Office Visit [facility] - Rheumatology [address] [place] [address], [place] [phone] Perez Cervantes MD [address] [place] [address] [place] [phone] Procedures Procedure Name Priority Date/Time Associated Diagnosis Comments QUANTIFERON-TB GOLD PLUS 1-TUBE 10/25/2024 7:42 AM MAINTENANCE ENGINEER OIL FIELD HEPATITIS C AB W/RFLX TO HCV RNA QN PCR Routine 10/25/2024 7:42 AM MAINTENANCE ENGINEER OIL FIELD Encounter for therapeutic drug monitoring HEPATITIS B SURFACE ANTIGEN W RFLX CONFIRMATION Routine 10/25/2024 7:42 AM MAINTENANCE ENGINEER OIL FIELD Encounter for therapeutic drug monitoring HEPATITIS B SURFACE ANTIBODY Routine 10/25/2024 7:42 AM MAINTENANCE ENGINEER OIL FIELD Encounter for therapeutic drug monitoring HEPATITIS B CORE ANTIBODY TOTAL Routine 10/25/2024 7:42 AM MAINTENANCE ENGINEER OIL FIELD Encounter for therapeutic drug monitoring URINALYSIS W/MICROSCOPIC REFLEX TO CULTURE Routine 10/25/2024 7:39 AM MAINTENANCE ENGINEER OIL FIELD Polyarthritis Encounter for therapeutic drug monitoring ERYTHROCYTE SEDIMENTATION RATE Routine 10/25/2024 7:39 AM MAINTENANCE ENGINEER OIL FIELD Polyarthritis Encounter for therapeutic drug monitoring C-REACTIVE PROTEIN Routine 10/25/2024 7: 39 AM MAINTENANCE ENGINEER OIL FIELD Polyarthritis Encounter for therapeutic drug monitoring COMPREHENSIVE METABOLIC PANEL Routine 10/25/2024 7:39 AM MAINTENANCE ENGINEER OIL FIELD Polyarthritis Encounter for therapeutic drug monitoring CBC W AUTO DIFFERENTIAL Routine 10/25/20 24 7:39 AM MAINTENANCE ENGINEER OIL FIELD Polyarthritis Encounter for therapeutic drug monitoring CULTURE URINE 10/25/2024 7:39 AM MAINTENANCE ENGINEER OIL FIELD CULTURE URINE REFLEXED II 10/25/2024 7:39 AM MAINTENANCE ENGINEER OIL FIELD DERMATOPATHOLOGY Routine 10/05/2024 10:3 3 AM MAINTENANCE ENGINEER OIL FIELD XR CHEST 2VW Routine 09/25/2024 2:53 PM MAINTENANCE ENGINEER OIL FIELD Encounter for therapeutic drug monitoring C-REACTIVE PROTEIN [...] QUANTIFERON-TB GOLD PLUS 1-TUBE (10/25/2024 7:42 AM MAINTENANCE ENGINEER OIL FIELD) QuantiFERON TB Gold Plus NEGATIVE NEGATIVE [facility] [...] T-lymphocytes. For additional information, please refer to https://education.Bit[facility] Lab/faq/BBY394 (This link is being provided for informational/ educational purposes only.) Test Performed at: [facility] [id number] [place] [address] ??[phone] NAVID SCOTT MD 10/25/2024 7:42 AM MAINTENANCE ENGINEER OIL FIELD 10/25/2024 7:42 AM MAINTENANCE ENGINEER OIL FIELD Perez Cervantes MD LAB - CHEMISTRY GERA DAVID [facility] Organization Address City/State/ZIP Co de Phone Number [facility] [address] [place] [address] * HEPATITIS C AB W/RFLX TO HCV RNA QN PCR (10/25/2024 7:42 AM MAINTENANCE ENGINEER OIL FIELD) Hepatitis C Antibody NON-REACTI VE NON-REACT ROMANA [facility] Comment: HCV antibody was non-reactive. There is no laboratory evidence of HCV infection. In most cases, no further action is required. However, if recent HCV exposure is suspected, a test for HCV RNA (test code 95572) is suggested. For additional information please refer to http://DocASAP.[facility] Lab/faq/XKS67p6 (This link is being provided for informational/ educational purposes only.) Test Performed at: [facility] [place] ??[phone] NAVID SCOTT MD Blood BLOOD SPECIMEN / Unknown 10/25/2024 7:42 AM MAINTENANCE ENGINEER OIL FIELD 10/25/2024 7:42 AM MAINTENANCE ENGINEER OIL FIELD Perez Cervantes MD LAB - CHEMISTRY GERA DAVID Performing Organization Address [facility] de Phone Number [facility] [id number] [place] [address] * (ABNORMAL) HEPATITIS B SURFACE ANTIBODY (10/25/2024 7:42 AM MAINTENANCE ENGINEER OIL FIELD) Hepatitis B Virus Surface Antibody REACTIVE(A ) NON-REACT ROMANA [facility] Comment: Test Performed at: [facility] [place], [place] ??[phone] NAVID SCOTT MD Blood BLOOD SPECIMEN / Unknown 10/25/2024 7:42 AM MAINTENANCE ENGINEER OIL FIELD 10/25/2024 7:42 AM MAINTENANCE ENGINEER OIL FIELD Perez Cervantes MD LAB - CHEMISTRY GERA DAVID Performing Organization Address [facility] Co de Phone Number [facility] [id number] [place] [address] * HEPATITIS B CORE ANTIBODY TOTAL (10/25/2024 7:42 AM MAINTENANCE ENGINEER OIL FIELD) Hepatitis B Core Virus Antibody Total NON-REACTI VE NON-REACT ROMANA [facility] Comment: For additional information, please refer to http://[employer] [facility]/faq/XJK496 (This link is being provided for informational/ educational purposes only.) Test Performed at: [facility] [place] ??[phone] NAVID SCOTT MD Blood BLOOD SPECIMEN / Unknown 10/25/2024 7:42 AM MAINTENANCE ENGINEER OIL FIELD 10/25/2024 7:42 AM MAINTENANCE ENGINEER OIL FIELD Perez Cervantes MD LAB - CHEMISTRY GERA DAVID Performing Organization Address [facility] Co de Phone Number [address] [address] * HEPATITIS B SURFACE ANTIGEN W RFLX CONFIRMATION (10/25/2024 7:42 AM MAINTENANCE ENGINEER OIL FIELD) Pathologist [facility] Hepatitis B Virus Surface Antigen NON-REACTI VE NON-REACT ROMANA [facility] Comment: For additional information, please refer to http://education.Bitave Lab/faq/VKV894 (This link is being provided for informational/ educational purposes only.) Test Performed at: [facility] [place] [address] [place], [place] ??[phone] NAVID SCOTT MD Blood BLOOD SPECIMEN / Unknown 10/25/2024 7:42 AM MAINTENANCE ENGINEER OIL FIELD 10/25/2024 7:42 AM MAINTENANCE ENGINEER OIL FIELD Perez Cervantes MD LAB - CHEMISTRY GERA DAVID Performing Organization Address [facility] de Phone Number [address] [address] * CULTURE URINE REFLEXED II (10/25/2024 7:39 AM MAINTENANCE ENGINEER OIL FIELD) Only the most recent of2 resultswithin the time period is included. Pathologist [facility] Reflexive Urine Culture See Below [facility] Comment: CULTURE INDICATED - RESULTS TO FOLLOW Test Performed at: [facility] ??[phone] NAVID SCOTT MD 10/25/2024 7:39 AM MAINTENANCE ENGINEER OIL FIELD 10/25/2024 7:40 AM MAINTENANCE ENGINEER OIL FIELD Perez Cervantes MD LAB - MICROBIOLOGY O RDERABLES Performing Organization Address [facility] Co de Phone Number [address] [address] * (ABNORMAL) URINALYSIS W/MICROSCOPIC REFLEX TO CULTURE (10/25/2024 7:39 AM MAINTENANCE ENGINEER OIL FIELD) Only the most recent of2 resultswithin the time period is included. Color UA YELLOW YELLOW [facility] Appearance CLOUDY(A) CLEAR [facility] Specific [place] UA 1.023 1.001 - 1.035 [facility] pH [...] elements seen were reported. Test Performed at: [facility] ??[phone] NAVID SCOTT MD Urine URINE SPECIMEN OBTAINED BY CLEAN CATCH PROCEDURE / Unknown 10/25/2024 7:39 AM MAINTENANCE ENGINEER OIL FIELD 10/25/2024 7:40 AM MAINTENANCE ENGINEER OIL FIELD Perez Cervantes MD LAB - URINALYSIS ORD ERABLES Performing Organization Address [facility] Phone Number [address] [address] * C-REACTIVE PROTEIN (10/25/2024 7:39 AM MAINTENANCE ENGINEER OIL FIELD) Only the most recent of2 resultswithin the time period is included. C-Reactive Protein <3.0 <8.0 mg/L [facility] Comment: Test Performed at: [facility] [place] [address] [facility] [place] ??[phone] NAVID SCOTT MD Blood BLOOD SPECIMEN / Unknown 10/25/2024 7:39 AM MAINTENANCE ENGINEER OIL FIELD 10/25/2024 7:40 AM MAINTENANCE ENGINEER OIL FIELD Perez Cervantes MD LAB - CHEMISTRY ORDE RABLES Performing Organization Address [facility] de Phone Number [address] [address] * CULTURE URINE (10/25/2024 7:39 AM MAINTENANCE ENGINEER OIL FIELD) Only the most recent of2 resultswithin the time period is included. Pathologist [facility] Culture [facility] Comment: ??CULTURE, URINE, ROUTINE ?Micro Number: ?[id number] ??Test Status: ? Final ??Specimen Source: ?? Urine ??Specimen Quality: ??Adequate ??Result: ?No Growth REPORT COMMENT: FASTING:YES Test Performed at: [facility] ??[phone] NAVID SCOTT MD 10/25/2024 7:39 AM MAINTENANCE ENGINEER OIL FIELD 10/25/2024 7:40 AM MAINTENANCE ENGINEER OIL FIELD Perez Cervantes MD LAB - MICROBIOLOGY O RDERABLES Performing Organization Address [facility] de Phone Number [facility] [address] [place] [address] * ERYTHROCYTE SEDIMENTATION RATE (10/25/2024 7:39 AM MAINTENANCE ENGINEER OIL FIELD) Only the most recent of2 resultswithin the time period is included. Pathologist [facility] Erythrocyte Sedimentation Rate Westergren 6 < OR = 30 mm/h [facility] Comment: Test Performed at: [facility] [place], [place] ??[phone] NAVID SCOTT MD Blood BLOOD SPECIMEN / Unknown 10/25/2024 7:39 AM MAINTENANCE ENGINEER OIL FIELD 10/25/2024 7:40 AM MAINTENANCE ENGINEER OIL FIELD Perez Cervantes MD LAB - HEMATOLOGY ORD ERABLES Performing Organization Address [facility] de Phone Number [address] [address] * (ABNORMAL) CBC WITH DIFFERENTIAL (10/25/2024 7:39 AM MAINTENANCE ENGINEER OIL FIELD) Only the most recent of2 resultswithin the time period is included. Pathologist [facility] White Blood Cell Count 4.5 3.8 - [...] 0.4 % [facility] Comment: Test Performed at: [facility] [address] [place], [place] ??[address] NAVID SCOTT MD Blasts [facility] nRBC [facility] Comments [facility] Comment: Test Performed at: [facility] [address] [place], [place] ??[phone] NAVID SCOTT MD Blood BLOOD SPECIMEN / Unknown 10/25/2024 7:39 AM MAINTENANCE ENGINEER OIL FIELD 10/25/2024 7:40 AM MAINTENANCE ENGINEER OIL FIELD Perez Cervantes MD LAB - HEMATOLOGY ORD ERABLES [facility] [address] [place] [address] * COMPREHENSIVE METABOLIC PANEL (10/25/2024 7:39 AM MAINTENANCE ENGINEER OIL FIELD) Only the most recent of2 resultswithin the [...] 29 U/L [facility] Comment: Test Performed at: [facility] [address] ??[phone] NAVID SCOTT MD Blood BLOOD SPECIMEN / Unknown 10/25/2024 7:39 AM MAINTENANCE ENGINEER OIL FIELD 10/25/2024 7:40 AM MAINTENANCE ENGINEER OIL FIELD Perez Cervantes MD LAB - CHEMISTRY GERA DAVID [facility] [address] [place] [address] * DERMATOPATHOLOGY (10/05/2024 10:33 AM MAINTENANCE ENGINEER OIL FIELD) Pathologist [facility] Case Report Dermatopathology Report ? Case: [id number] ? Authorizing Provider: ??Elida Reyes, DO ?? Collected: ? 10/05/2024 10:33 AM ? Ordering Location: ? [facility] - ??Received: ?10/05/2024 04:35 PM ? DermPath Lab ? Pathologist: ? Kassandra Maurer MD ? Specimen: ?Skin, left upper arm ? 4 1:26 PM [facility] DERMATOPATHOLOGY LABORATORY Final Diagnosis Specimen A. SKIN, left upper arm: LICHEN PLANUS-LIKE KERATOSIS (BENIGN LICHENOID KERATOSIS) (L82.1) 4 1:26 PM [facility] DERMATOPATHOLOGY LABORATORY Clinical History R/O NMSC 4 1:26 PM [facility] DERMATOPATHOLOGY LABORATORY Gross Description Specimen A: Received is one formalin filled container labeled with the patient's name and designated left upper arm. The specimen consists of a shave biopsy measuring 8x7x1 mm. Jar 0. 4 1:26 PM [facility] DERMATOPATHOLOGY LABORATORY Microscopic Description Specimen A. SKIN, left upper arm: The epidermis is mildly acanthotic. There is a lichenoid infiltrate with vacuolar changes of basilar keratinocytes and scattered necrotic keratinocytes. 4 1:26 PM MAINTENANCE ENGINEER OIL FIELD DERMATOPATHOLOGY LABORATORY Disclaimer An external and internal positive and negative controls are appropriate for the histochemical, immunohistochemical and immunofluorescence stain(s) in this case (if any), except where stated explicitly. The performance characteristics of the stain(s) cited in this report were developed and its performance characteristic determined by the Dermatopathology Laboratory at [facility], directed by Dr. Robbin Dunbar. These tests need not be, and therefore are not, approved by the [place] Food and Drug Administration. The tests are used for clinical purposes. Billing Codes Specimen Charges Stain Charges 19850 1 4 1:26 PM MAINTENANCE ENGINEER OIL FIELD DERMATOPATHOLOGY LABORATORY Embedded Images 1:26 PM MAINTENANCE ENGINEER OIL FIELD DERMATOPATHOLOGY LABORATORY Pathology/Cytolo gy TISSUE SPECIMEN FROM SKIN / Unknown 10/05/2024 10:33 AM MAINTENANCE ENGINEER OIL FIELD 10/05/2024 4:35 PM MAINTENANCE ENGINEER OIL FIELD Elida Reyes DO LAB - PATHOLOGY/C YTOLOGY ORDERABLES DERMATOPATHOLOGY LABORATORY [facility] - Department of Dermatology [address], [address] [phone] * XR Chest 2Vw (09/25/2024 2:53 PM MAINTENANCE ENGINEER OIL FIELD) Anatomical Region Laterality Modality Chest Digital Radiogra phy 09/25/2024 8:41 PM MAINTENANCE ENGINEER OIL FIELD Impressions 09/25/2024 8:41 PM MAINTENANCE ENGINEER OIL FIELD IMPRESSION: No acute cardiopulmonary abnormalities. > Interpreting Provider: Cheryl Cespedes MD on 09/25/2024 8:41 PM Narrative 09/25/2024 8:41 PM MAINTENANCE ENGINEER OIL FIELD PROCEDURE: ??XR CHEST 2VW DATE/TIME OF EXAM: [...] RDERABLES from Last 3 Months Care Teams Photo Stylist Relationship Specialty [place] [address] [address] PCP - General Family Medicine 03/27/24
--- OUTSIDE RECORDS SUMMARY | 2024-11-13 17:45 | XMS_ITS | Encounter Summary ---
Author Organization [facility] Address [address] [place] [address] Care Team Providers Care Pmo Business Analyst Name Role Phone Dayanara Plaza MD Primary Care Provider [phone] Encounter Details Date Type Department Care Team [...] Visit [facility] - Rheumatology [address] [place] [address], [place] [address] Perez Cervantes MD [address] [place] [address] [place] [address] documented as of this encounter Visit Diagnoses Not on filedocumented in this encounter Care Teams Pmo Business Analyst Relationship Specialty [place] [address] [address] PCP - General Family Medicine 03/27/24 documented as of this encounter
--- OUTSIDE RECORDS SUMMARY | 2024-11-13 17:45 | XMS_ITS | Encounter Summary ---
Author Organization [facility] Address [address] [facility] [place] [address] Care Team Providers Care Warping Mill Operator Name Role Phone Dayanara Plaza MD Primary Care Provider [phone] Encounter Details Date Type Department Care Team (Late Contact Info) Description 10/27/2024 Orders Only [facility] - Rheumatology [address] [place] [phone] Perez Cervantes MD [address] [place] [address] [place] [address] Polyarthritis; Encounter for therapeutic drug [...] Visit [facility] - Rheumatology [address] [place] [phone] Perez Cervantes MD [address] [place] [address] documented as of this encounter Visit Diagnoses Diagnosis Polyarthritis Unspecified polyarthropathy or polyarthritis, site unspecified Encounter for therapeutic drug monitoring Encounter for long-term (current) use of medications Encounter for long-term (current) use of other medications documented in this encounter Care Teams Warping Mill Operator Relationship Specialty [place] [address] [address] PCP - General Family Medicine 03/27/24 documented as of this encounter
--- OUTSIDE RECORDS SUMMARY | 2024-11-13 17:45 | XMS_ITS | Encounter Summary ---
Author Organization [facility] Address [address] [facility] [place] [address] Care Team Providers Care Cell Tester Name Role Phone Dayanara Plaza MD Primary Care Provider [phone] Reason for Visit * Reason Onset Date Comments MEDICATION REFILL 07/21/2024 Encounter Details Date Type Department Care Team (Late st Contact Info) Description 07/21/2024 Refill [facility] - Rheumatology [address] [place] [address], [place] [address] Latha Steele MD [address] [place] [address] [place] [address] MEDICATION REFILL Social History Tobacco [...] [facility] - Rheumatology [address] [place] [address], [place] [phone] Perez Cervantes MD [address] [place] [address] [place] [phone] documented as of this encounter Visit Diagnoses Diagnosis Polyarthritis Unspecified polyarthropathy or polyarthritis, site unspecified documented in this encounter Care Teams Cell Tester Relationship Specialty [place] [address] [address] PCP - General Family Medicine 03/27/24 documented as of this encounter
--- OUTSIDE RECORDS SUMMARY | 2024-11-13 17:45 | XMS_ITS | Encounter Summary ---
Author Organization [facility] Address [address] [facility] [address] Care Team Providers Care Rotor Winder Name Role Phone Dayanara Plaza MD Primary Care Provider [phone] Encounter Details Date Type Department Care Team (Late st Contact Info) Description 10/25/2024 Orders Only [facility] - Rheumatology [address] [place] [phone] Perez Cervantes MD [address] [place] [address] [address] [place] [address] Social History Tobacco Use Types [...] Visit [facility] - Rheumatology [address] [place] [phone] Perez Cervantes MD [address] [place] [address] [address] [place] [phone] documented as of this encounter Procedures Procedure Name Priority Date/Time Associated Diagnosis Comments QUANTIFERON-TB GOLD PLUS 1-TUBE 10/25/2024 7:42 AM VAN DRIVER HELPER CULTURE URINE REFLEXED II 10/25/2024 7:39 AM VAN DRIVER HELPER CULTURE URINE 10/25/2024 7:39 AM VAN DRIVER HELPER documented in this encounter Results * QUANTIFERON-TB GOLD PLUS 1-TUBE (10/25/2024 7:42 AM VAN DRIVER HELPER) QuantiFERON TB Gold Plus NEGATIVE NEGATIVE [facility] [...] T-lymphocytes. For additional information, please refer to https://education.Bday.Leapfunder/faq/ZHM350 (This link is being provided for informational/ educational purposes only.) Test Performed at: [place] [facility] [place] ??[phone] NAVID SCOTT MD 10/25/2024 7:42 AM VAN DRIVER HELPER 10/25/2024 7:42 AM VAN DRIVER HELPER Perez Cervantes MD LAB - CHEMISTRY GERA DAVID [facility] Organization Address City/State/ZIP Co de Phone Number [facility] [address] [place] [address] * CULTURE URINE (10/25/2024 7:39 AM VAN DRIVER HELPER) Culture [facility] Comment: ??CULTURE, URINE, ROUTINE ?Micro Number: ?[id number] ??Test Status: ? Final ??Specimen Source: ?? Urine ??Specimen Quality: ??Adequate ??Result: ?No Growth REPORT COMMENT: FASTING:YES Test Performed at: [address] ??[phone] NAVID SCOTT MD 10/25/2024 7:39 AM VAN DRIVER HELPER 10/25/2024 7:40 AM VAN DRIVER HELPER Perez Cervantes MD LAB - MICROBIOLOGY O JHOANERAEMMANUEL Performing Organization Address [facility] de Phone Number [address] [address] * CULTURE URINE REFLEXED II (10/25/2024 7:39 AM VAN DRIVER HELPER) Reflexive Urine Culture See Below [facility] Comment: CULTURE INDICATED - RESULTS TO FOLLOW Test Performed at: [facility] [address] ??[phone] NAVID CSOTT MD 10/25/2024 7:39 AM VAN DRIVER HELPER 10/25/2024 7:40 AM VAN DRIVER HELPER Perez Cervantes MD LAB - MICROBIOLOGY O RDDANITA Performing Organization Address [facility] de Phone Number [address] [address] documented in this encounter Visit Diagnoses Not on filedocumented in this encounter Care Teams Rotor Winder Relationship Specialty [place] [address] [address] PCP - General Family Medicine 03/27/24 documented as of this encounter
--- OUTSIDE RECORDS SUMMARY | 2024-11-13 17:45 | XMS_ITS | Encounter Summary ---
Author Organization [facility] Health Address [address] [facility] [place] [address] Care Team Providers Care Skilled Labor Name Role Phone Dayanara Plaza MD Primary Care Provider Reason for Visit * Reason Onset Date Comments MEDICATION REFILL 10/16/2024 Encounter Details Date Type Department Care Team (Late st Contact Info) Description 10/16/2024 Refill [facility] Rhe[facility]ology [address] [place] [address], [facility] [place] [address] Christian Pemberton MD [address] [place] [address] [place] [phone] MEDICATION REFILL Social History Tobacco Use Types [...] 50 (fifty) mg subcutaneously every [address] LOGISTICS MANAGER documented in this encounter Plan of Treatment Upcoming Encounters Date Type Department Care Team (Late st Contact Info) Description 03/27/2025 1:00 PM CDT Office Visit [facility] Rhe[facility]ology [address] [place] [address], [place] [phone] Perez Cervantes MD [address] [place] [address] [place] [phone] documented as of this encounter Visit Diagnoses Diagnosis Polyarthritis Unspecified polyarthropathy or polyarthritis, site unspecified documented in this encounter Care Teams Skilled Labor Relationship Specialty [place] [address] [address] PCP - General Family Medicine 03/27/24 documented as of this encounter
--- OUTSIDE RECORDS SUMMARY | 2024-11-13 17:45 | XMS_ITS | Encounter Summary ---
Author Organization [facility] Health Address [address] [facility] [place] [address] Care Team Providers Care Game Designer/Creative Director Name Role Phone Dayanara Plaza MD Primary Care Provider [phone] Reason for Visit * Reason Onset Date Comments Medication Prior Auth Request 07/12/2024 En brel Encounter Details Date Type Department Care Team (Late st Contact Info) Description 07/12/2024 Telephone [facility] Rhe[facility]ology [address] [place] [address], [facility] [place] [address] Perez Cervantes MD [address] [place] [address] [place] [address] Medication Prior Auth Request (Enbrel) [...] through 07/13/2025 Submitted via: Insurance: [facility] [employer]: [phone] * Telephone Encounter - Mario Bolton CPhT - 07/12/2024 9:32 AM CDT Medication Prior Authorization Medication: Enbrel 50MG/ML prefilled syringe Status: Submitted - Pending Submitted via: Insurance: [facility] [employer]: [phone] documented in this encounter Plan of Treatment Upcoming Encounters Date Type Department Care Team (Late st Contact Info) Description 03/27/2025 1:00 PM CDT Office Visit [facility] - Rheumatology [address] [place] [address], [place] [address] Perez Cervantes MD [address] [place] [address] [place] [phone] documented as of this encounter Visit Diagnoses Not on filedocumented in this encounter Care Teams Game Designer/Creative Director Relationship Specialty Start [place] [address] [address] PCP - General Family Medicine 03/27/24 documented as of this encounter
--- OUTSIDE RECORDS SUMMARY | 2024-11-13 17:45 | XMS_ITS | Encounter Summary ---
Author Organization [facility] Address [address] [facility] [place] [address] Care Team Providers Care Kiln Tester Name Role Phone Dayanara Plaza MD Primary Care Provider [phone] Encounter Details Date Type Department Care Team (Late Contact Info) Description 09/01/2024 Orders Only [facility] - Rheumatology [address] [place] [phone] Perez Cervantes MD [address] [place] [address] [place] [address] Polyarthritis; Encounter for therapeutic drug [...] Upcoming Encounters Date Type Department Care Team ([facility] Contact Info) Description 03/27/2025 1:00 PM CDT Office Visit [facility] [address] [place] [phone] Perez Cervantes MD [address] [place] [address] documented as of this encounter Visit Diagnoses Diagnosis Polyarthritis Unspecified polyarthropathy or polyarthritis, site unspecified Encounter for therapeutic drug monitoring Encounter for long-term (current) use of medications Encounter for long-term (current) use of other medications documented in this encounter Care Teams Kiln Tester Relationship Specialty Start [place] [address] [address] PCP - General Family Medicine 03/27/24 documented as of this encounter
--- OUTSIDE RECORDS SUMMARY | 2024-11-13 17:45 | XMS_ITS | Encounter Summary ---
Author Organization [facility] Address [address] [facility] [place] [address] Care Team Providers Care Security Controls Assessor Name Role Phone Dayanara Plaza MD Primary Care Provider [phone] Encounter Details Date Type Department Care Team (Late st Contact Info) Description 08/30/2024 Orders Only [facility] Rhe[facility]ology [address] [place] [phone] Perez Cervantes MD [address] [place] [address] 2L [place] [address] Social History Tobacco Use Types [...] Office Visit [facility]ology [address] [place] [phone] Perez Cervantes MD [address] [place] [address] [address] [place] [phone] documented as of this encounter Procedures Procedure [...] CULTURE URINE (08/30/2024 7:38 AM CDT) Pathologist [facility] Culture [facility] Comment: ??CULTURE, URINE, ROUTINE ?Micro Number: ?[id number] ??Test Status: ? Final ??Specimen Source: ?? Urine ??Specimen Quality: ??Adequate ??Result: ?No Growth REPORT COMMENT: FASTING:YES Test Performed at: [employer] ??[phone] NAVID SCOTT MD 08/30/2024 7:38 AM CDT 08/30/2024 7:39 AM CDT Perez Cervantes MD LAB - MICROBIOLOGY O RDERABLES [address] [address] * C-REACTIVE PROTEIN (08/30/2024 7:38 AM CDT) Pathologist [facility] C-Reactive Protein <3.0 <8.0 mg/L [facility] Comment: Test Performed at: [employer] [place] [address] [place], [place] ??[address] NAVID SCOTT MD 08/30/2024 7:38 AM CDT 08/30/2024 7:39 AM CDT Perez Cervantes MD LAB - CHEMISTRY ORDE RABDEMARCO Performing Organization Address [facility] Co de Phone Number [address] [address] * CULTURE URINE REFLEXED II (08/30/2024 7:38 AM CDT) Reflexive Urine Culture See Below [facility] Comment: CULTURE INDICATED - RESULTS TO FOLLOW Test Performed at: [employer] ??[phone] NAVID SCOTT MD 08/30/2024 7:38 AM CDT 08/30/2024 7:39 AM CDT Perez Cervantes MD LAB - MICROBIOLOGY O RDERABLES Performing Organization Address [facility] Co de Phone Number [address] [address] * (ABNORMAL) URINALYSIS W/MICROSCOPIC REFLEX TO CULTURE (08/30/2024 7:38 AM CDT) Color UA DARK YELLOW YELLOW [facility] Appearance CLEAR CLEAR [facility] Specific [place] UA 1.023 1.001 - 1.035 [facility] pH [...] elements seen were reported. Test Performed at: [employer] ??[phone] NAVID SCOTT MD 08/30/2024 7:38 AM CDT 08/30/2024 7:39 AM CDT Perez Cervantes MD LAB - URINALYSIS ORD ERABLES [facility] [address] [place] [address] * (ABNORMAL) CBC WITH DIFFERENTIAL (08/30/2024 7:38 [...] 0.7 % [facility] Comment: Test Performed at: [employer] [place] [address] [place] ??[address] NAVID SCOTT MD Blasts [facility] nRBC [facility] Comments [facility] Comment: Test Performed at: [employer] [address] [place] ??[address] NAVID SCOTT MD 08/30/2024 7:38 AM CDT 08/30/2024 7:39 AM CDT Perez Cervantes MD LAB - HEMATOLOGY ORD ERABLES Performing Organization Address [facility] de Phone Number [facility] [address] [place] [address] * ERYTHROCYTE SEDIMENTATION RATE (08/30/2024 7:38 AM CDT) Erythrocyte Sedimentation Rate Westergren 17 < OR = 30 mm/h [facility] Comment: Test Performed at: [employer] [address] [place], [place] ??[address] NAVID SCOTT MD 08/30/2024 7:38 AM CDT 08/30/2024 7:39 AM CDT Perez Cervantes MD LAB - HEMATOLOGY ORD ERABLES Performing Organization Address [facility] de Phone Number [facility] [phone] [place] [address] * (ABNORMAL) COMPREHENSIVE METABOLIC PANEL (08/30/2024 7:38 [...] 29 U/L [facility] Comment: Test Performed at: [employer] [facility] [place], [place] ??[address] NAVID SCOTT MD 08/30/2024 7:38 AM CDT 08/30/2024 7:39 AM CDT Perez Cervantes MD LAB - CHEMISTRY GERA DAVID [facility] Organization Address City/State/ZIP Co de Phone Number [facility] [address] [place] [address] documented in this encounter Visit Diagnoses Not on filedocumented in this encounter Care Teams Security Controls Assessor Relationship Specialty [place] [address] [address] PCP - General Family Medicine 03/27/24 documented as of this encounter
--- OUTSIDE RECORDS SUMMARY | 2024-11-13 17:45 | XMS_ITS | Encounter Summary ---
Author Organization [facility] Health Address [address] [facility] [place] [address] Care Team Providers Care Metal Die Finisher Name Role Phone Dayanara Plaza MD Primary Care Provider [phone] Encounter Details Date Type Department Care Team (Latest Contact Info) Description 09/25/2024 2:32 PM SOLDERING MACHINE SETTER - 09/25/2024 11:59 PM [facility] Hospital Encounter [facility] DI[facility]IC RAD OP [address] [place] [address] Perez Cervantes MD [address] [place] [address] Discharge Disposition: Home or Self [...] End Date Azelastine HCl 137 MCG/SPRAY SOLN [place] 2 sprays into the nose 2 times [...] Office Visit [facility] - Rheumatology [address] [place] [address], [place] [address] Perez Cervantes MD [address] [place] [address] [place] [address] documented as of this encounter Procedures Procedure Name Priority Date/Time Associated Diagnosis Comments XR CHEST 2VW Routine 09/25/2024 2:53 PM SOLDERING MACHINE SETTER Encounter for therapeutic drug monitoring documented in this encounter Results * XR Chest 2Vw (09/25/2024 2:53 PM SOLDERING MACHINE SETTER) Anatomical Region Laterality Modality Chest Digital Radiogra phy 09/25/2024 8:41 PM SOLDERING MACHINE SETTER Impressions 09/25/2024 8:41 PM SOLDERING MACHINE SETTER IMPRESSION: No acute cardiopulmonary abnormalities. > Interpreting Provider: Cheryl Cespedes MD on 09/25/2024 8:41 PM Narrative 09/25/2024 8:41 PM SOLDERING MACHINE SETTER PROCEDURE: ??XR CHEST 2VW DATE/TIME OF EXAM: [...] monitoring documented in this encounter Care Teams Metal Die Finisher Relationship Specialty [place] [address] [address] PCP - General Family Medicine 03/27/24 documented as of this encounter
--- OUTSIDE RECORDS SUMMARY | 2024-11-13 17:45 | XMS_ITS | Encounter Summary ---
Author Organization [facility] Address [address] [facility] [place] [address] Care Team Providers Care Top Lifter Name Role Phone Dayanara Plaza MD Primary Care Provider [phone] Reason for Referral * Evaluate & Treat (Routine) - Open Specialty Diagnoses / Procedures Referred By Chalino bazan Referred To Contact Orthopedics Diagnoses Polyarthritis Perez Cervantes MD [address] [place] [address] [address] [address] Zack De Jesus DO [address] [place] [phone] Referral ID Status Reason Start Date Expiration Date V isits Requested Visits Authorized [id number] Open Specialty Services Required 09/25/2024 09/25/2025 1 1 ICE CREW LEADER Reason for Visit * Reason Comments Arthritis Encounter Details Date Type Department Care Team (Latest Contact Info) Description 09/25/2024 1:40 PM SERVICE CREW LEADER Office Visit [facility] - Rheumatology [address] [place] [address], [place] [address] Perez Cervantes MD [address] [place] [address] [address] [place] [address] Polyarthritis (Primary Dx); Encounter for [...] Comments Blood Pressure 118/78 09/25/2024 1:24 PM SERVICE CREW LEADER Pulse 69 09/25/2024 1:24 PM SERVICE CREW LEADER Temperature 36.6 ??C (97.9 ??F) 09/25/2024 1:24 PM CS T Respiratory Rate - - Oxygen Saturation 98% 09/25/2024 1:24 PM SERVICE CREW LEADER Inhaled Oxygen Concentration - - Weight 77.8 kg (171 lb 9.6 oz) 09/25/2024 1:24 P M SERVICE CREW LEADER Height 172.7 cm (5' 8 ) 09/25/2024 1:24 PM SERVICE CREW LEADER Body Mass Index 26.09 09/25/2024 1:24 PM SERVICE CREW LEADER documented in this encounter Progress Notes * [...] adenopathy/thyromegaly/tenderness (General) Unremarkable (Extrem)HNs DIPswith T1/BNs 5th PIPs/INTERMEDIATE prominence. 1-3 MCPs SfT0; 2-5th MTPs SfT0; No donta synovitis. MS= bilat (Assess) Polyarthritis in medical remission (Plan) Continue same meds with labs q 8 weeks an d now CXR and yearly TB/Hep screenings. Referral to [facility], Dr. Ervin. RTO in 6 months. Discussed with patient and her . Perez Cervantes MD, FACP, FAAP, MACR Refrigerating Engineer Head and Pediatric Rheumatology Professor of Internal Medicine,Pediatrics, and Molecular Immunology [facility] ICE CREW LEADER documented in this encounter Plan of Treatment Upcoming Encounters Date Type Department Care Team (Late st Contact Info) Description 03/27/2025 1:00 PM CDT Office Visit [facility] Rheumatology [address] [place] [address], [place] [address] Perez Cervantes MD [address] [place] [address] [address] [place] [address] Scheduled Orders Name Type Priority [...] Diagnoses Order Schedule Ref to Orthopedics - [facility] Outpatient Referral Routine Polyarthritis 1 Occurrences starting 09/25/2024 until 09/25/2025 documented as of this encounter Procedures Procedure Name Priority Date/Time Associated Diagnosis Comments HEPATITIS C AB W/RFLX TO HCV RNA QN PCR Routine 10/25/2024 7:42 AM SERVICE CREW LEADER Encounter for therapeutic drug monitoring HEPATITIS B SURFACE ANTIBODY Routine 10/25/2024 7:42 AM SERVICE CREW LEADER Encounter for therapeutic drug monitoring HEPATITIS B CORE ANTIBODY TOTAL Routine 10/25/2024 7:42 AM SERVICE CREW LEADER Encounter for therapeutic drug monitoring HEPATITIS B SURFACE ANTIGEN W RFLX CONFIRMATION Routine 10/25/2024 7:42 AM SERVICE CREW LEADER Encounter for therapeutic drug monitoring URINALYSIS W/MICROSCOPIC REFLEX TO CULTURE Routine 10/25/2024 7:39 AM SERVICE CREW LEADER Polyarthritis Encounter for therapeutic drug monitoring C-REACTIVE PROTEIN Routine 10/25/2024 7: 39 AM SERVICE CREW LEADER Polyarthritis Encounter for therapeutic drug monitoring ERYTHROCYTE SEDIMENTATION RATE Routine 10/25/2024 7:39 AM SERVICE CREW LEADER Polyarthritis Encounter for therapeutic drug monitoring CBC W AUTO DIFFERENTIAL Routine 10/25/2024 7:39 AM SERVICE CREW LEADER Polyarthritis Encounter for therapeutic drug monitoring COMPREHENSIVE METABOLIC PANEL Routine 10/25/2024 7:39 AM SERVICE CREW LEADER Polyarthritis Encounter for therapeutic drug monitoring documented in this encounter Results * HEPATITIS C AB W/RFLX TO HCV RNA QN PCR (10/25/2024 7:42 AM SERVICE CREW LEADER) Hepatitis C Antibody NON-REACTI VE NON-REACT ROMANA [facility] Comment: HCV antibody was non-reactive. There is no laboratory evidence of HCV infection. In most cases, no further action is required. However, if recent HCV exposure is suspected, a test for HCV RNA (test code 58920) is suggested. For additional information please refer to http://[employer].T[employer]ilica/faq/RZP69v0 (This link is being provided for informational/ educational purposes only.) Test Performed at: [employer] [address] [place], [place] ??[phone] NAVID SCOTT MD Blood BLOOD SPECIMEN / Unknown 10/25/2024 7:42 AM SERVICE CREW LEADER 10/25/2024 7:42 AM SERVICE CREW LEADER Perez Cervantes MD LAB - CHEMISTRY GERA DAVID [facility] Organization Address City/State/[facility] Co de Phone Number [facility] [address] [place] [address] * HEPATITIS B SURFACE ANTIGEN W RFLX CONFIRMATION (10/25/2024 7:42 AM SERVICE CREW LEADER) Hepatitis B Virus Surface Antigen NON-REACTI VE NON-REACT ROMANA [facility] Comment: For additional information, please refer to http://[employer].Tensilica/faq/ZHT545 (This link is being provided for informational/ educational purposes only.) Test Performed at: [employer] [address] [place] ??[address] NAVID SCOTT MD Blood BLOOD SPECIMEN / Unknown 10/25/2024 7:42 AM SERVICE CREW LEADER 10/25/2024 7:42 AM SERVICE CREW LEADER Perez Cervantes MD LAB - CHEMISTRY GERA DAVID Performing Organization Address [facility] de Phone Number [employer] [address] [place] [phone] * (ABNORMAL) HEPATITIS B SURFACE ANTIBODY (10/25/2024 7:42 AM SERVICE CREW LEADER) Hepatitis B Virus Surface Antibody REACTIVE(A ) NON-REACT ROMANA [facility] Comment: Test Performed at: [employer] [address] [place], [place] ??[address] NAVID SCOTT MD Blood BLOOD SPECIMEN / Unknown 10/25/2024 7:42 AM SERVICE CREW LEADER 10/25/2024 7:42 AM SERVICE CREW LEADER Perez Cervantes MD LAB - CHEMISTRY GERA DAVID Performing Organization Address [facility] de Phone Number [employer] [address] [place] [address] * HEPATITIS B CORE ANTIBODY TOTAL (10/25/2024 7:42 AM SERVICE CREW LEADER) Hepatitis B Core Virus Antibody Total NON-REACTI VE NON-REACT ROMANA [facility] Comment: For additional information, please refer to http://education.Tensilica/faq/QRY190 (This link is being provided for informational/ educational purposes only.) Test Performed at: [employer] [place], [place] ??[address] NAVID SCOTT MD Blood BLOOD SPECIMEN / Unknown 10/25/2024 7:42 AM SERVICE CREW LEADER 10/25/2024 7:42 AM SERVICE CREW LEADER Perez Cervantes MD LAB - CHEMISTRY GERA DAVID Performing Organization Address [facility] de Phone Number [employer] [address] [place] [address] * (ABNORMAL) URINALYSIS W/MICROSCOPIC REFLEX TO CULTURE (10/25/2024 7:39 AM SERVICE CREW LEADER) Color UA YELLOW YELLOW [facility] Appearance CLOUDY(A) CLEAR [facility] Specific [place] UA 1.023 1.001 - 1.035 [facility] pH [...] elements seen were reported. Test Performed at: [employer] ??[phone] NAVID SCOTT MD Urine URINE SPECIMEN OBTAINED BY CLEAN CATCH PROCEDURE / Unknown 10/25/2024 7:39 AM SERVICE CREW LEADER 10/25/2024 7:40 AM SERVICE CREW LEADER Perez Cervantes MD LAB - URINALYSIS ORD ERABLES Performing Organization Address [facility] Co de Phone Number [address] [address] * ERYTHROCYTE SEDIMENTATION RATE (10/25/2024 7:39 AM SERVICE CREW LEADER) Pathologist [facility] Erythrocyte Sedimentation Rate Westergren 6 < OR = 30 mm/h [facility] Comment: Test Performed at: [employer] [address] ??[phone] NAVID SCOTT MD Blood BLOOD SPECIMEN / Unknown 10/25/2024 7:39 AM SERVICE CREW LEADER 10/25/2024 7:40 AM SERVICE CREW LEADER Perez Cervantes MD LAB - HEMATOLOGY ORD ERABLES Performing Organization Address [facility]/ZIP Co de Phone Number [address] [address] * C-REACTIVE PROTEIN (10/25/2024 7:39 AM SERVICE CREW LEADER) Pathologist [facility] C-Reactive Protein <3.0 <8.0 mg/L [facility] Comment: Test Performed at: [employer] [address] [place], [place] ??[address] NAVID SCOTT MD Blood BLOOD SPECIMEN / Unknown 10/25/2024 7:39 AM SERVICE CREW LEADER 10/25/2024 7:40 AM SERVICE CREW LEADER Perez Cervantes MD LAB - CHEMISTRY GERA DAVID [facility] Organization Address City/State/ZIP Co de Phone Number [facility] [address] [place] [address] * COMPREHENSIVE METABOLIC PANEL (10/25/2024 7:39 AM SERVICE CREW LEADER) Glucose 83 65 - 99 mg/dL [facility] [...] 29 U/L [facility] Comment: Test Performed at: [employer] [address] [place], [place] ??[address] NAVID SCOTT MD Blood BLOOD SPECIMEN / Unknown 10/25/2024 7:39 AM SERVICE CREW LEADER 10/25/2024 7:40 AM SERVICE CREW LEADER Perez Cervantes MD LAB - CHEMISTRY GERA DAVID [facility] Organization Address City/State/ZIP Co de Phone Number [facility] [address] [place] [address] * (ABNORMAL) CBC WITH DIFFERENTIAL (10/25/2024 7:39 AM SERVICE CREW LEADER) White Blood Cell Count 4.5 3.8 - [...] 0.4 % [facility] Comment: Test Performed at: [employer] [place], [place] ??[address] NAVID SCOTT MD Blasts [facility] nRBC [facility] Comments [facility] Comment: Test Performed at: [employer] [address] [place], [place] ??[address] NAVID SCOTT MD Blood BLOOD SPECIMEN / Unknown 10/25/2024 7:39 AM SERVICE CREW LEADER 10/25/2024 7:40 AM SERVICE CREW LEADER Perez Cervantes MD LAB - HEMATOLOGY ORD ERABLES [facility] [address] [place] [address] * XR Chest 2Vw (09/25/2024 2:53 PM SERVICE CREW LEADER) Anatomical Region Laterality Modality Chest Digital Radiogra phy 09/25/2024 8:41 PM SERVICE CREW LEADER Impressions 09/25/2024 8:41 PM SERVICE CREW LEADER IMPRESSION: No acute cardiopulmonary abnormalities. > Interpreting Provider: Cheryl Cespedes MD on 09/25/2024 8:41 PM Narrative 09/25/2024 8:41 PM SERVICE CREW LEADER PROCEDURE: ??XR CHEST 2VW DATE/TIME OF EXAM: [...] monitoring documented in this encounter Care Teams Top Lifter Relationship Specialty [place] [address] [address] [address] PCP - General Family Medicine 03/27/24 documented as of this encounter
--- OUTSIDE RECORDS SUMMARY | 2024-11-13 17:45 | XMS_ITS | Encounter Summary ---
Author Organization [facility] Health Address [address] [facility] [place] [address] Care Team Providers Care E Mail System Administrator Name Role Phone Dayanara Plaza MD Primary Care Provider [phone] Reason for Visit * Reason Onset Date Comments MEDICATION REFILL 10/19/2024 Encounter Details Date Type Department Care Team (Late st Contact Info) Description 10/19/2024 Refill [facility] Rhe[facility] [address] [place] [address], [facility] [place] [address] Perez Cervantes MD [address] [place] [address] [place] [address] MEDICATION REFILL Social History Tobacco [...] 50 (fifty) mg subcutaneously every 7 days OMER OPERATIONS SPECIALIST documented in this encounter Plan of Treatment Upcoming Encounters Date Type Department Care Team (Late st Contact Info) Description 03/27/2025 1:00 PM CDT Office Visit [facility] - Rheumatology [address] [place] [address], [place] [address] Perez Cervantes MD [address] [place] [address] [place] [address] documented as of this encounter Visit Diagnoses Diagnosis Polyarthritis Unspecified polyarthropathy or polyarthritis, site unspecified documented in this encounter Care Teams E Mail System Administrator Relationship Specialty [place] [address] [address] PCP - General Family Medicine 03/27/24 documented as of this encounter
--- OUTSIDE RECORDS SUMMARY | 2024-11-13 17:45 | XMS_ITS | Patient Health Summary ---
Author Organization [facility] Address [address] [place] [place] [address] Care Team Providers Care Vp Hr Diversity Name Role Phone Dayanara Plaza MD Primary Care Provider [phone] Note from [facility],non-owned Affiliates and Associated Physician Practices is amultiple site organization consisting of ambulatory clinics and hospital sitesin [place], [place], [place] and [place]. This disclosure is being madepursuant to the Care Everywhere program and may not contain all information available regarding this patient. Last updated 18.[facility] Allergies * Levofloxacin(Nausea and/or Vomiting,Psychiatric) -Medium Criticality Medications * Be aware that medications may not be up to date on this document. Alwaysverify current medications with the patient. * dicyclomine (BENTYL) 20 MG tablet Take 1 (one) tablet by mouth as needed * Multiple Vitamin (MULTI VITAMIN PO) Take 1 tablet by mouth once daily * Azelastine HCl 137 MCG/SPRAY SOLN [place] 2 sprays into the nose 2 times [...] Comments Blood Pressure 118/78 09/25/2024 1:24 PM INSTRUCTIONAL FACILITATOR Pulse 69 09/25/2024 1:24 PM INSTRUCTIONAL FACILITATOR Temperature 36.6 ??C (97.9 ??F) 09/25/2024 1:24 PM CS T Respiratory Rate 16 06/09/2021 2:48 PM CDT Oxygen Saturation 98% 09/25/2024 1:24 PM INSTRUCTIONAL FACILITATOR Inhaled Oxygen Concentration - - Weight 77.8 kg (171 lb 9.6 oz) 09/25/2024 1:24 P M INSTRUCTIONAL FACILITATOR Height 172.7 cm (5' 8 ) 09/25/2024 1:24 PM INSTRUCTIONAL FACILITATOR Body Mass Index 26.09 09/25/2024 1:24 PM INSTRUCTIONAL FACILITATOR Procedures * QUANTIFERON-TB GOLD PLUS 1-TUBE(Performed 10/25/2024) [...] QUANTIFERON-TB GOLD PLUS 1-TUBE (10/25/2024 7:42 AM INSTRUCTIONAL FACILITATOR) Only the most recent of6 resultswithin the time period is included. [facility] QuantiFERON TB Gold Plus NEGATIVE NEGATIVE [facility] [...] T-lymphocytes. For additional information, please refer to https://education.Taplet/faq/JNG679 (This link is being provided for informational/ educational purposes only.) Test Performed at: [facility] [address] [place] ??[phone] NAVID SCOTT MD 10/25/2024 7:42 AM INSTRUCTIONAL FACILITATOR 10/25/2024 7:42 AM INSTRUCTIONAL FACILITATOR Perez Cervantes MD LAB - CHEMISTRY GERA DAVID Performing Organization Address [facility] Co de Phone Number [facility] [address] [place] [phone] * HEPATITIS C AB W/RFLX TO HCV RNA QN PCR (10/25/2024 7:42 AM INSTRUCTIONAL FACILITATOR) Only the most recent of2 resultswithin the time period is included. Hepatitis C Antibody NON-REACTI VE NON-REACT ROMANA [facility] Comment: HCV antibody was non-reactive. There is no laboratory evidence of HCV infection. In most cases, no further action is required. However, if recent HCV exposure is suspected, a test for HCV RNA (test code 29278) is suggested. For additional information please refer to http://education.Taplet/faq/UQE30n1 (This link is being provided for informational/ educational purposes only.) Test Performed at: [facility] ??[phone] NAVID SCOTT MD Blood BLOOD SPECIMEN / Unknown 10/25/2024 7:42 AM INSTRUCTIONAL FACILITATOR 10/25/2024 7:42 AM INSTRUCTIONAL FACILITATOR Perez Cervantes MD LAB - CHEMISTRY GERA DAVID Performing Organization Address [facility] Co de Phone Number [facility] [address] [place] [address] * (ABNORMAL) HEPATITIS B SURFACE ANTIBODY (10/25/2024 7:42 AM INSTRUCTIONAL FACILITATOR) Only the most recent of2 resultswithin the time period is included. Hepatitis B Virus Surface Antibody REACTIVE(A ) NON-REACT ROMANA [facility] Comment: Test Performed at: [facility] [address] [place], [place] ??[phone] NAVID SCOTT MD Blood BLOOD SPECIMEN / Unknown 10/25/2024 7:42 AM INSTRUCTIONAL FACILITATOR 10/25/2024 7:42 AM INSTRUCTIONAL FACILITATOR Perez Cervantes MD LAB - CHEMISTRY GERA DAVID Performing Organization Address [facility] Co de Phone Number [facility] [phone] [place], [place] [phone] * HEPATITIS B CORE ANTIBODY TOTAL (10/25/2024 7:42 AM INSTRUCTIONAL FACILITATOR) Only the most recent of2 resultswithin the time period is included. Hepatitis B Core Virus Antibody Total NON-REACTI VE NON-REACT ROMANA [facility] Comment: For additional information, please refer to http://Wander.Taplet/faq/TLJ179 (This link is being provided for informational/ educational purposes only.) Test Performed at: [facility] [place] ??[phone] NAVID SCOTT MD Blood BLOOD SPECIMEN / Unknown 10/25/2024 7:42 AM INSTRUCTIONAL FACILITATOR 10/25/2024 7:42 AM INSTRUCTIONAL FACILITATOR Perez Cervantes MD LAB - CHEMISTRY GERA DAVID Performing Organization Address [facility] Co de Phone Number [facility] [phone] [place] [address] * HEPATITIS B SURFACE ANTIGEN W RFLX CONFIRMATION (10/25/2024 7:42 AM INSTRUCTIONAL FACILITATOR) Only the most recent of2 resultswithin the time period is included. Hepatitis B Virus Surface Antigen NON-REACTI VE NON-REACT ROMANA [facility] Comment: For additional information, please refer to http://Wander.Taplet/faq/MNF986 (This link is being provided for informational/ educational purposes only.) Test Performed at: [facility] [place] ??[phone] NAVID SCOTT MD Blood BLOOD SPECIMEN / Unknown 10/25/2024 7:42 AM INSTRUCTIONAL FACILITATOR 10/25/2024 7:42 AM INSTRUCTIONAL FACILITATOR Perez Cervantes MD LAB - CHEMISTRY GERA DAVID Performing Organization Address [facility] Co de Phone Number [facility] [address] [place] [address] * CULTURE URINE REFLEXED II (10/25/2024 7:39 AM INSTRUCTIONAL FACILITATOR) Only the most recent of10 resultswithin the time period is included. Reflexive Urine Culture See Below [facility] Comment: CULTURE INDICATED - RESULTS TO FOLLOW Test Performed at: [address] ??[phone] NAVID SCOTT MD 10/25/2024 7:39 AM INSTRUCTIONAL FACILITATOR 10/25/2024 7:40 AM INSTRUCTIONAL FACILITATOR Perez Cervantes MD LAB - MICROBIOLOGY O RDERABLES Performing Organization Address [facility] Co de Phone Number [address] [address] * (ABNORMAL) URINALYSIS W/MICROSCOPIC REFLEX TO CULTURE (10/25/2024 7:39 AM INSTRUCTIONAL FACILITATOR) Only the most recent of95 resultswithin the time period is included. Color UA YELLOW YELLOW [facility] Appearance CLOUDY(A) CLEAR [facility] Specific [place] UA 1.023 1.001 - 1.035 [facility] pH [...] elements seen were reported. Test Performed at: [address] ??[phone] NAVID SCOTT MD Urine URINE SPECIMEN OBTAINED BY CLEAN CATCH PROCEDURE / Unknown 10/25/2024 7:39 AM INSTRUCTIONAL FACILITATOR 10/25/2024 7:40 AM INSTRUCTIONAL FACILITATOR Perez Cervantes MD LAB - URINALYSIS ORD ERABLES Performing Organization Address City/State/[facility] de Phone Number [address] [address] * C-REACTIVE PROTEIN (10/25/2024 7:39 AM INSTRUCTIONAL FACILITATOR) Only the most recent of80 resultswithin the time period is included. Pathologist [facility] C-Reactive Protein <3.0 <8.0 mg/L [facility] Comment: Test Performed at: [facility] [address] ??[phone] NAVID SCOTT MD Blood BLOOD SPECIMEN / Unknown 10/25/2024 7:39 AM INSTRUCTIONAL FACILITATOR 10/25/2024 7:40 AM INSTRUCTIONAL FACILITATOR Perez Cervantes MD LAB - CHEMISTRY GERA DAVID Performing Organization Address [facility] de Phone Number [address] [address] * CULTURE URINE (10/25/2024 7:39 AM INSTRUCTIONAL FACILITATOR) Only the most recent of27 resultswithin the time period is included. Pathologist [facility] Culture [facility] Comment: ??CULTURE, URINE, ROUTINE ?Micro Number: ?[id number] ??Test Status: ? Final ??Specimen Source: ?? Urine ??Specimen Quality: ??Adequate ??Result: ?No Growth REPORT COMMENT: FASTING:YES Test Performed at: [facility] ??[phone] NAVID SCOTT MD 10/25/2024 7:39 AM INSTRUCTIONAL FACILITATOR 10/25/2024 7:40 AM INSTRUCTIONAL FACILITATOR Perez Cervantes MD LAB - MICROBIOLOGY Hector COOK Performing Organization Address [facility] de Phone Number [address] [address] * ERYTHROCYTE SEDIMENTATION RATE (10/25/2024 7:39 AM INSTRUCTIONAL FACILITATOR) Only the most recent of92 resultswithin the time period is included. Pathologist [facility] Erythrocyte Sedimentation Rate Westergren 6 < OR = 30 mm/h [facility] Comment: Test Performed at: [facility] [address] [place] ??[phone] NAVID SCOTT MD Blood BLOOD SPECIMEN / Unknown 10/25/2024 7:39 AM INSTRUCTIONAL FACILITATOR 10/25/2024 7:40 AM INSTRUCTIONAL FACILITATOR Perez Cervantes MD LAB - HEMATOLOGY ORD ERABLES [facility] [address] [place] [address] * (ABNORMAL) CBC WITH DIFFERENTIAL (10/25/2024 7:39 AM INSTRUCTIONAL FACILITATOR) Only the most recent of96 resultswithin the [...] 0.4 % [facility] Comment: Test Performed at: [facility] [address] [place] [address] ??[phone] NAVID SCOTT MD [facility] Comments [facility] Comment: Test Performed at: [facility] [address] [place] [address] ??[phone] NAIVD SCOTT MD Blood BLOOD SPECIMEN / Unknown 10/25/2024 7:39 AM INSTRUCTIONAL FACILITATOR 10/25/2024 7:40 AM INSTRUCTIONAL FACILITATOR Perez Cervantes MD LAB - HEMATOLOGY ORD ERABLES [facility] [address] [place] [address] * COMPREHENSIVE METABOLIC PANEL (10/25/2024 7:39 AM INSTRUCTIONAL FACILITATOR) Only the most recent of97 resultswithin the [...] 29 U/L [facility] Comment: Test Performed at: [facility] [address] [place] [address] ??[phone] NAVID SCOTT MD Blood BLOOD SPECIMEN / Unknown 10/25/2024 7:39 AM INSTRUCTIONAL FACILITATOR 10/25/2024 7:40 AM INSTRUCTIONAL FACILITATOR Perez Cervantes MD LAB - CHEMISTRY GERA DAVID [facility] [address] [place] [address] * DERMATOPATHOLOGY (10/05/2024 10:33 AM INSTRUCTIONAL FACILITATOR) Only the most recent of6 resultswithin the time period is included. Case Report Dermatopathology Report ? Case: [id number] ? Authorizing Provider: ??Elida Reyes, ?? Collected: ? 10/05/2024 10:33 AM ? Ordering Location: ? [facility] - ??Received: ?10/05/2024 04:35 PM ? DermPath Lab ? Pathologist: ? Kassandra Maurer MD ? Specimen: ?Skin, left upper arm ? 4 1:26 PM [facility] DERMATOPATHOLOGY LABORATORY Final Diagnosis Specimen A. SKIN, left upper arm: LICHEN PLANUS-LIKE KERATOSIS (BENIGN LICHENOID KERATOSIS) (L82.1) 4 1:26 PM [facility] DERMATOPATHOLOGY LABORATORY Clinical History R/O NMSC 1:26 PM [facility] DERMATOPATHOLOGY LABORATORY Gross Description Specimen A: Received is one formalin filled container labeled with the patient's name and designated left upper arm. The specimen consists of a shave biopsy measuring 8x7x1 mm. Jar 0. 1:26 PM [facility] DERMATOPATHOLOGY LABORATORY Microscopic Description Specimen A. SKIN, left upper arm: The epidermis is mildly acanthotic. There is a lichenoid infiltrate with vacuolar changes of basilar keratinocytes and scattered necrotic keratinocytes. 1:26 PM [facility] DERMATOPATHOLOGY LABORATORY Disclaimer An external and internal positive and negative controls are appropriate for the histochemical, immunohistochemical and immunofluorescence stain(s) in this case (if any), except where stated explicitly. The performance characteristics of the stain(s) cited in this report were developed and its performance characteristic determined by the Dermatopathology Laboratory at [facility], directed by Dr. Robbin Dunbar. These tests need not be, and therefore are not, approved by the [place] Food and Drug Administration. The tests are used for clinical purposes. Billing Codes Specimen Charges Stain Charges 87366 1 4 1:26 PM [facility] DERMATOPATHOLOGY LABORATORY Embedded Images 1:26 PM [facility] DERMATOPATHOLOGY LABORATORY Pathology/Cytolo gy TISSUE SPECIMEN FROM SKIN / Unknown 10/05/2024 10:33 AM INSTRUCTIONAL FACILITATOR 10/05/2024 4:35 PM [facility] Elida Reyes DO LAB - PATHOLOGY/C YTOLOGY ORDERABLES DERMATOPATHOLOGY LABORATORY [facility] - Department of Dermatology [address] [place], [place] [id number] [place] [address] * XR Chest 2Vw (09/25/2024 2:53 PM INSTRUCTIONAL FACILITATOR) Only the most recent of11 resultswithin the time period is included. Anatomical Region Laterality Modality Chest Digital Radiogra phy 09/25/2024 8:41 PM INSTRUCTIONAL FACILITATOR Impressions 09/25/2024 8:41 PM INSTRUCTIONAL FACILITATOR IMPRESSION: No acute cardiopulmonary abnormalities. > Interpreting Provider: Cheryl Cespedes MD on 09/25/2024 8:41 PM Narrative 09/25/2024 8:41 PM INSTRUCTIONAL FACILITATOR PROCEDURE: ??XR CHEST 2VW DATE/TIME OF EXAM: [...] DATE/TIME OF EXAM: ??03/27/2024 2:31 PM, LOCATION ??[facility] INDICATION: M13.0: Polyarthritis COMPARISON: Right and left [...] DATE/TIME OF EXAM: 03/27/2024 2:31 PM, LOCATION [facility] INDICATION: M13.0: Polyarthritis COMPARISON: Right and left [...] Td Burton MD, MD (professor of radiology). Dihn Osorio MD have personally reviewed and interpreted [...] DATE/TIME OF EXAM: ??03/27/2024 2:31 PM, LOCATION ??[facility] INDICATION: M13.0: Polyarthritis COMPARISON: Right and left [...] DATE/TIME OF EXAM: 03/27/2024 2:31 PM, LOCATION [facility] INDICATION: M13.0: Polyarthritis COMPARISON: Right and left [...] by Td Burton MD, (professor of radiology). Dinh Osorio MD have personally reviewed and interpreted this examination/study. > Interpreting Provider: Dinh Toledo MD on 03/27/2024 2:57 PM Narrative 03/27/2024 2:57 PM CDT PROCEDURE: ??XR HAND RIGHT 2VW, XR HAND LEFT 2VW, XR FOOT LEFT 2VW, XR FOOT RIGHT 2VW, DATE/TIME OF EXAM: ??03/27/2024 2:31 PM, LOCATION ??[facility] INDICATION: M13.0: Polyarthritis COMPARISON: Right and left [...] DATE/TIME OF EXAM: 03/27/2024 2:31 PM, LOCATION [facility] INDICATION: M13.0: Polyarthritis COMPARISON: Right and left [...] DATE/TIME OF EXAM: ??03/27/2024 2:31 PM, LOCATION ??[facility] INDICATION: M13.0: Polyarthritis COMPARISON: Right and left [...] DATE/TIME OF EXAM: 03/27/2024 2:31 PM, LOCATION [facility] INDICATION: M13.0: Polyarthritis COMPARISON: Right and left [...] Comment: NO CULTURE INDICATED Test Performed at: [facility] ??[phone] NAVID SCOTT MD 02/14/2024 7:33 AM CDT 02/14/2024 7:33 AM CDT Perez Cervantes MD LAB - MICROBIOLOGY O RDERABLES Performing Organization Address [facility]/ZIP Co de Phone Number [address] [address] * URINALYSIS W/MICROSCOPIC NO CULTURE (09/30/2023 7:32 AM INSTRUCTIONAL FACILITATOR) Color UA YELLOW YELLOW [facility] Appearance CLEAR CLEAR [facility] Specific [place] UA 1.015 1.001 - 1.035 [facility] pH [...] SEEN /LPF [facility] Comment: Test Performed at: [place] [place] ??[address] NAVID SCOTT MD 09/30/2023 7:32 AM INSTRUCTIONAL FACILITATOR 09/30/2023 7:36 AM INSTRUCTIONAL FACILITATOR Perez Cervantes MD LAB - URINALYSIS ORD ERABLES Performing Organization Address [facility] Co de Phone Number [address] [address] * CULTURE URINE REFLEXED (05/15/2022 10:29 AM CDT) Only the most recent of30 resultswithin the time period is included. Reflexive Urine Culture See Below [facility] Comment: CULTURE INDICATED - RESULTS TO FOLLOW Test Performed at: [facility] [place] ??[phone] ASPEN HOLLINGSWORTH DO,MPH 05/15/2022 10:2 9 AM CDT 05/15/2022 10:34 AM CDT Perez Cervantes MD LAB - MICROBIOLOGY O RDERABLES [facility] [address] [place] [address] * (ABNORMAL) SARS-COV-2 (COVID-19) ANTIBODY IGG (06/20/2021 [...] providers and patients using the following websites: https://www.Eggs Overnight.[employer]/home/Covid-19/HCP/antibody/ fact-sheet8 ?? https://www.[employer]/home/Covid-19/Patients/ antibody/fact-sheet8 ?? Healthcare Providers: For additional information please refer to: http://education.Taplet/faq/CWQ557 (This link is being provided for informational/ educational purposes only.) ?? This test has been authorized by the FDA under an Emergency Use Authorization (EUA) for use by authorized laboratories. The FDA authorized labeling is available on the [employer] website: www.[employer]/Covid19. Test Performed at: [facility] [address] [place], [place] ??[phone] ASPEN HOLLINGSWORTH DO,MPH Blood BLOOD SPECIMEN / Unknown 06/20/2021 7:32 AM CDT 06/20/2021 7:34 AM CDT Perez Cervantes MD LAB - CHEMISTRY GERA DAVID [facility] Organization Address City/State/ZIP Co de Phone Number [facility] [address] [place] [address] * CULTURE URINE REFLEXED I (05/02/2021 7:33 AM CDT) Only the most recent of14 resultswithin the time period is included. Reflexive Urine Culture See Below [facility] Comment: NO CULTURE INDICATED Test Performed at: [facility] [address] [place] ??[phone] ASPEN HOLLINGSWORTH DO,MPH 05/02/2021 7:33 AM CDT 05/02/2021 7:34 AM CDT Perez Cervantes MD LAB - MICROBIOLOGY O RDERABLES Performing Organization Address [facility] Co de Phone Number [address] [address] * (ABNORMAL) CBC W/O DIFFERENTIAL (09/22/2019 7:40 AM INSTRUCTIONAL FACILITATOR) Only the most recent of4 resultswithin the [...] 12.5 fL [facility] Comment: Test Performed at: [facility] ??[phone] NAVID SCOTT MD 09/22/2019 7:40 AM INSTRUCTIONAL FACILITATOR 09/22/2019 7:41 AM INSTRUCTIONAL FACILITATOR Perez Cervantes MD LAB - HEMATOLOGY ORD ERABLES Performing Organization Address [facility] Co de Phone Number [address] [address] * SS-A/SS-B (SJOGRENS) ANTIBODY PANEL (06/06/2019 8:15 AM CDT) Only the most recent of2 resultswithin the time period is included. Sjogren's Antibodies (SSA) <1.0 NEG <1.0 NEG AI [facility] Sjogren's Antibodies (SSB) <1.0 NEG <1.0 NEG AI [facility] Comment: Test Performed at: [facility] [place] [address] [place], [place] ??[address] ASPEN HOLLINGSWORTH DO,MPH Blood BLOOD SPECIMEN / Unknown 06/06/2019 8:15 AM CDT 06/06/2019 8:16 AM CDT Perez Cervantes MD LAB - CHEMISTRY GERA MANDEEPDEMARCO Performing Organization Address [facility] de Phone Number [facility] [address] [place] [phone] * RHEUMATOID ARTHRITIS PANEL (06/06/2019 8:15 AM CDT) Only the most recent of8 resultswithin the time period is included. Rheumatoid Factor <14 <14 IU/mL [facility] Cyclic Citrullinated Peptide Antibody IgG <16 UNITS [facility] Comment: Reference Range Negative: ?<20 Weak Positive: ? 20-39 Moderate Positive: ?? 40-59 Strong Positive: ? >59 Test Performed at: [place] [place] ??[address] ASPEN HOLLINGSWORTH DO,MPH Interpretation [facility] Comment: These serologic results may be found in 10-20% of patients with polyarthritis that is clinically and radiologically indistinguishable from RA. Test Performed at: [facility] [place] ??[phone] ASPEN HOLLINGSWORTH DO,MPH Blood BLOOD SPECIMEN / Unknown 06/06/2019 8:15 AM CDT 06/06/2019 8:16 AM CDT Perez Cervantes MD LAB - SEROLOGY ORDER ADELAIDE Performing Organization Address [facility] de Phone Number [facility] [address] [place] [address] * IMMUNOGLOBULINS IGG/IGM/IGA PANEL (06/06/2019 8:15 AM CDT) IgA 236 47 - 310 mg/dL [facility] IgG 1242 600 - 1640 mg/dL [facility] IgM 76 50 - 300 mg/dL [facility] Comment: Test Performed at: [facility]ioPROMED[facility] DEFI[facility]OSPITALRingly[place], [place] ??[address] ASPEN HOLLINGSWORTH DO,MPH Blood BLOOD SPECIMEN / Unknown 06/06/2019 8:15 AM CDT 06/06/2019 8:16 AM CDT Perez Cervantes MD LAB - CHEMISTRY GERA DAVID Performing Organization Address [facility] Co de Phone Number [facility] [address] [place] [address] * QUANTIFERON TB-GOLD (08/12/2018 7:44 AM CDT) Only the most recent of6 resultswithin the time period is included. Pathologist [facility] QuantiFERON TB Gold NEGATIVE NEGATIVE [facility] Comment: [...] IU/mL. For additional information, please refer to http://education.TGV Software.[employer]/faq/QFT (This link is being provided for informational/ educational purposes only.) Test Performed at: [facility] ??[phone] ASPEN HOLLINGSWORTH DO,MPH Blood BLOOD SPECIMEN / Unknown 08/12/2018 7:44 AM CDT 08/12/2018 7:38 AM CDT Perez Cervantes MD LAB - CHEMISTRY GERA DAVID Performing Organization Address [facility] Co de Phone Number [facility] [address] [place] [address] * XR KNEE RIGHT 3VW (01/31/2018 1:30 PM CDT) Anatomical Region Laterality Modality Lower Extremity Other Impressions 02/01/2018 8:28 AM CDT IMPRESSION: No acute fracture or dislocation identified. No significant arthritis. Dictated by Rashard Brewster MD (professor of radiology). Dr. ANA LUISA Osorio M.D. [...] significant arthritis. Dictated by Rashard Brewster MD (professor of radiology). Dr. ANA LUISA Osorio M.D. [...] significant arthritis. Dictated by Rashard Brewster MD (professor of radiology). Dr. ANA LUISA Osorio M.D. [...] significant arthritis. Dictated by Rashard Brewster MD (professor of radiology). Dr. ANA LUISA Osorio M.D. have personally reviewed and interpreted thisexamination/study. This report was electronically signed by ANA LUISA KAUFMAN M.D. on 02/01/20188:28 AM . Perez Cervantes MD DIAGNOSTIC IMAGING O RDERABLES * (ABNORMAL) EARLY SJOGREN'S SYNDROME PROFILE (08/13/2017 7:38 AM CDT) Salivary Protein 1 Antibody IgG 4.3 EU/ml [facility] ([facility]) Comment: Reference Range: Negative: <20 EU/ml Positive: =>20 EU/ml Salivary Protein 1 Antibody IgA 4.9 EU/ml [facility] ([facility]) Comment: Reference Range: Negative: <20 EU/ml Positive: =>20 EU/ml Salivary Protein 1 Antibody IgM 20.7(H) EU/ml [facility] ([facility]) Comment: Reference Range: Negative: <20 EU/ml Positive: =>20 EU/ml Carbonic Anhydrase Antibody IgG 6.5 EU/ml [facility] ([facility]) Comment: Reference Range: Negative: <20 EU/ml Positive: =>20 EU/ml Carbonic Anhydrase Antibody IgA 5.8 EU/ml [facility] ([facility]) Comment: Reference Range: Negative: <20 EU/ml Positive: =>20 EU/ml Carbonic Anhydrase Antibody IgM 9.0 EU/ml [facility] ([facility]) Comment: Reference Range: Negative: <20 EU/ml Positive: =>20 EU/ml Parotid Spec Protein Antibody IgG 2.7 EU/ml [facility] ([facility]) Comment: Reference Range: Negative: <20 EU/ml Positive: =>20 EU/ml Parotid Spec Protein Antibody IgA 4.4 EU/ml [facility] ([facility]) Comment: Reference Range: Negative: <20 EU/ml Positive: =>20 EU/ml Parotid Spec Protein Antibody IgM 1.9 EU/ml [facility] [facility]) Comment: Reference Range: Negative: <20 EU/ml Positive: =>20 EU/ml Comment SEE BELOW [facility] ([facility]) Comment: The novel antibodies salivary gland protein [...] in primary sjogren's syndrome. J Immunol; 185: 6369-6652. Vanessa Miranda et al. (2012). Novel autoantibodies in Sjogren's syndrome. Clinical Immunology; 145, 251-255. *This test has been developed and performance parameters have been validated by [employer] This test ?? has not been approved by the U.S. Food and Drug Administration (FDA); however, US FDA approval is not required for clinical use. It is not intended that clincal diagnosis and patient management decisions be made using these results alone. This test has been validated using serum samples. The plastics worker has not determined the efficacy of this test when performed on CSF, plasma, joint or pleural fluid specimens. The performance characteristics of this test were determined by [employer] Test Performed at: [facility] [address] [place] [address] ??[id number] [address] LIAN GONZALEZ 08/13/2017 7:38 AM CDT 08/13/2017 7:39 AM CDT Perez Cervantes MD LAB - SEROLOGY ORDER ADELAIDE Performing Organization Address [facility] Co de Phone Number [facility]) * PATHOLOGY/GENETICS HISTORICAL-ONBASE (08/06/2016) Only the most recent of2 resultswithin the time period is included. 08/06/2016 Historical Provider LAB - CHEMISTRY O RDERABLES Performing Organization Address [facility] Co de Phone Number [address] * MRI PELVIS NON CONTRAST (03/06/2016 [...] D2+D3 BY TANDEM MASS (01/11/2015 7:36 AM INSTRUCTIONAL FACILITATOR) Only the most recent of2 resultswithin the time period is included. Vitamin D, 25 Hydroxy Total 44 30 - 100 ng/mL [facility] ([facility]) Comment: 25-OHD3 indicates both endogenous production and [...] Hydroxy D3 44 See Below ng/mL [facility] ([facility]) Comment:Reference Range: Not established Vitamin D, 25 Hydroxy D2 <4 See Below ng/mL [facility]) Comment: Reference Range: Not established REPORT COMMENT: SPECIMEN TYPE->URINE Test Performed at: [facility] [address] [place], [place] ??[phone] VICKI ADDISON MD,FCAP Blood specimen (specimen) BLOOD SPECIMEN / Unknown 01/11/2015 7:36 AM INSTRUCTIONAL FACILITATOR 01/11/2015 7:37 AM INSTRUCTIONAL FACILITATOR Perez Cervantes MD LAB - CHEMISTRY GERA DAVID [facility]) * PROTEIN 14-3-3 BLOOD (09/29/2014 9:00 AM INSTRUCTIONAL FACILITATOR) Only the most recent of3 resultswithin the time period is included. Pathologist [facility] 14.3.3 eta Protein <0.2 <0.2 ng/mL [facility]) Comment: This test was developed and its performance characteristics have been determined by [facility]. It has not been cleared or approved by the U.S. Food and Drug Administration. The FDA has determined that such clearance or approval is not necessary. Performance characteristics refer to the analytical performance of the test. Test Performed at: [facility] [address] [place], [place] ??[phone] ALYSA NG MD PHD 09/29/2014 9:00 AM INSTRUCTIONAL FACILITATOR 09/29/2014 9:05 AM INSTRUCTIONAL FACILITATOR Perez Cervantes MD LAB - CHEMISTRY ORDE RABLES Performing Organization Address City/[facility]/ZIP Co de Phone Number [facility]) * SMOOTH MUSCLE ANTIBODY W REFLEX TITER (04/23/2014 7:46 AM CDT) [facility] Smooth Muscle Antibody Screen NEGATIVE NEGATIVE [facility] ([facility]) Comment: Test Performed at: [facility] ??[phone] ASPEN BRONSON MD 04/23/2014 7:46 AM CDT 04/23/2014 7:46 AM CDT Perez Cervantes MD LAB - SEROLOGY ORDER ADELAIDE [facility]) * GGT (04/23/2014 7:46 AM CDT) Pathologist [facility] GGT 35 3 - 70 U/L [facility]) Comment: Test Performed at: [facility] [address] [place], [place] ??[address] ASPEN HOLLINGSWORTH DO,MPH Blood specimen (specimen) BLOOD SPECIMEN / Unknown 04/23/2014 7:46 AM CDT 04/23/2014 7:46 AM CDT Perez Cervantes MD LAB - CHEMISTRY GERA DAVID Performing Organization Address [facility] de Phone Number [facility]) * MITOCHONDRIAL ANTIBODY SCREEN (03/23/2014 7:37 AM CDT) Pathologist [facility] Mitochondria M2 Antibody IgG <20.0 U [facility]) Comment: Reference Range: NEGATIVE: < OR = 20.0 ?EQUIVOCAL: 20.1-24.9 ?POSITIVE: ??> OR = 25.0 REPORT COMMENT: SPECIMEN TYPE->URINE Test Performed at: [facility] [facility] [address] [place], [place] ??[address] ALYSA NG MD PHD Blood specimen (specimen) BLOOD SPECIMEN / Unknown 03/23/2014 7:37 AM CDT 03/23/2014 7:37 AM CDT Perez Cervantes MD LAB - CHEMISTRY GERA DAVID Performing Organization Address [facility] de Phone Number [facility] ([facility]) * HEPATITIS SCREEN ACUTE (03/23/2014 7:37 AM CDT) Only the most recent of2 resultswithin the time period is included. Pathologist [facility] Hepatitis A Virus Antibody IgM NON-REACTI VE NON-REACT [facility]) Hepatitis B Virus Surface Antigen NON-REACTI VE NON-REACT ROMANA [facility]) Hepatitis B Core Virus Antibody IgM NON-REACTI VE NON-REACT ROMANA [facility]) Hepatitis C Antibody NON-REACTI VE NON-REACT ROMANA [facility]) Signal/Cutoff 0.07 <1.00 [facility]) Comment: REPORT COMMENT: SPECIMEN TYPE->URINE Test Performed at: [facility] [id number] [place] [address] ??[phone] ASPEN HOLLINGSWORTH DO,MPH Blood specimen (specimen) BLOOD SPECIMEN / Unknown 03/23/2014 7:37 AM CDT 03/23/2014 7:37 AM CDT Perez Cervantes MD LAB - CHEMISTRY GERA DAVID [facility] Organization Address City/State/ZIP Co de Phone Number [facility] ([facility]) * YOSEF COMPREHENSIVE PLUS PROFILE (09/07/2013 7:48 AM CDT) Only the most recent of2 resultswithin the time period is included. YOSEF Screen NEGATIVE NEGATIVE [facility] ([facility]) Comment: A negative ANAchoice(TM) indicates the absence of detectable antibodies to component analytes consisting of dsDNA, Chromatin, DISASTER RESPONSE DIRECTOR, Sm/DISASTER RESPONSE DIRECTOR, Sm, SSA, SSB, Mary-1, Centromere B, Scl-70 and Ribosomal P. A negative ANAchoice(TM) should be interpreted in the context of the clinical and laboratory findings, and does not rule out autoimmune disease characterized by other autoantibody specificities including autoimmune hepatitis and primary biliary cirrhosis. Test Performed at: [facility] [address] [place], [place] ??[address] ALYSA NG MD PHD YOSEF Pattern #1 TNP [facility]) Comment: TNP-Reflex testing not required. Reference Ranges for Anti-Nuclear Ab Titer: ?? <1:40 ?Negative ?? 1:40-1:80 ??Low Antibody Level ?? >1:80 ?Elevated Antibody Level A positive YSOEF result may be seen in a variety of diseases and healthy individuals. Its interpretation depends on clinical findings and other laboratory data. Rheumatoid Factor 7 <14 IU/mL [facility] ([facility]) dsDNA Antibody Crithidia IFA NEGATIVE NEGATIVE [facility] ([facility]) Comment: This test was developed and its performance characteristics have been determined by [facility]. It has not been cleared or approved by the U.S. Food and Drug Administration. The FDA has determined that such clearance or approval is not necessary. Performance characteristics refer to the analytical performance of the test. dsDNA Antibody Crithidia Titer TNP-Reflex testing not required. [facility] ([facility]) Comment: SUSANNA Donaldson (SM) Antibody <1.0 NEG <1.0 NEGATIVE AI [facility]) SM/DISASTER RESPONSE DIRECTOR Antibody <1.0 NEG <1.0 NEGATIVE AI [facility]) Sjogren's Antibodies (SSA) <1.0 NEG <1.0 NEGATIVE AI [facility]) Sjogren's Antibodies (SSB) <1.0 NEG <1.0 NEGATIVE AI [facility]) SUSANNA SCL-70 Antibody <1.0 NEG <1.0 NEGATIVE AI [facility]) 09/07/2013 7:48 AM CDT 09/07/2013 7:48 AM CDT Perez Cervantes MD LAB - CHEMISTRY GERA DAVID [facility] ([facility]) * HLA TYPING B27 (04/26/2013 8:02 AM CDT) Pathologist [facility] HLA-B27 NEGATIVE NEGATIVE [facility] ([facility]) Comment: REPORT COMMENT: SPECIMEN TYPE->URINE Test Performed at: [facility] [address] ??[phone] ASPEN HOLLINGSWORTH DO, MPH 04/26/2013 8:02 AM CDT 04/26/2013 8:03 AM CDT Perez Cervantes MD LAB - CHEMISTRY GERA DAVID Performing Organization Address City/[facility]/ZIP Co de Phone Number [facility] ([facility]) * LAB HISTORICAL RESULTS-ONBASE (02/20/2013) Only the most recent of2 resultswithin the time period is included. 02/20/2013 Narrative [facility] - 05/02/2013 3:30 PM CDT Historical Provider LAB - CHEMISTRY Hector COOK Performing Organization Address [facility]/ZIP Co de Phone Number [facility] [address] [place], [place] [address] [place] [address] * T3 FREE (12/08/2012 3:38 PM INSTRUCTIONAL FACILITATOR) Pathologist [facility] T3 Free 3.3 2.3 - 4.2 pg/mL [facility] ([facility]) Comment: Test Performed at: [facility] [address] [place], [place] ??[phone] ASPEN HOLLINGSWORTH DO,MPH Venous blood specimen (specimen) 12/08/2012 3:38 PM INSTRUCTIONAL FACILITATOR 12/08/2012 3:39 PM INSTRUCTIONAL FACILITATOR Perez Cervantes MD LAB - CHEMISTRY GERA DAVID Performing Organization Address [facility] de Phone Number [facility]) * ALDOLASE (12/08/2012 3:38 PM INSTRUCTIONAL FACILITATOR) Aldolase 3.1 < OR = 8.1 U/L [facility]) Comment: REPORT COMMENT: SPECIMEN TYPE->URINE Test Performed at: [facility] [address] ??[phone] ASPEN HOLLINGSWORTH DO,MPH 12/08/2012 3:38 PM INSTRUCTIONAL FACILITATOR 12/08/2012 3:39 PM INSTRUCTIONAL FACILITATOR Perez Cervantes MD LAB - CHEMISTRY GERA DAVID Performing Organization Address [facility] de Phone Number [facility]) * CK BLOOD (12/08/2012 3:38 PM INSTRUCTIONAL FACILITATOR) Pathologist [facility] CK Total 56 29 - 143 U/L [facility]) Comment: Test Performed at: [facility] [address] ??[phone] ASPEN HOLLINGSWORTH DO,MPH Serum 12/08/2012 3:38 PM INSTRUCTIONAL FACILITATOR 12/08/2012 3:39 PM INSTRUCTIONAL FACILITATOR Perez Cervantes MD LAB - CHEMISTRY GERA DAVID Performing Organization Address [facility] de Phone Number [facility]) * (ABNORMAL) TSH (12/08/2012 3:38 PM INSTRUCTIONAL FACILITATOR) TSH 0.28(L) mIU/L [facility]) Comment: ?Reference Range ?> or = 20 Years ??0.40-4.50 ? Ranges ?First trimester ?0.26-2.66 ?Second trimester ?? 0.55-2.73 ?Third trimester ?0.43-2.91 Test Performed at: [facility] [address] [place], [place] ??[phone] ASPEN HOLLINGSWORTH DO,MPH Venous blood specimen (specimen) 12/08/2012 3:38 PM INSTRUCTIONAL FACILITATOR 12/08/2012 3:39 PM INSTRUCTIONAL FACILITATOR Perez Cervantes MD LAB - CHEMISTRY GERA DAVID Performing Organization Address [facility] de Phone Number [facility]) * T4 FREE (12/08/2012 3:38 PM INSTRUCTIONAL FACILITATOR) [facility] T4 Free 1.2 0.8 - 1.8 ng/dL [facility] ([facility]) Comment: The current lot of free T4 reagent available from the plastics worker produces results that are approximately 9% higher than previous reagent lots. Please interpret these results accordingly. Test Performed at: [facility] [address] ??[phone] ASPEN HOLLINGSWORTH DO,MPH Venous blood specimen (specimen) 12/08/2012 3:38 PM INSTRUCTIONAL FACILITATOR 12/08/2012 3:39 PM INSTRUCTIONAL FACILITATOR Perez Cervantes MD LAB - CHEMISTRY GERA DAVID Performing Organization Address [facility] de Phone Number [facility]) * (ABNORMAL) MYCOPLASMA PNEUMO ANTIBODY IGG/IGM PANEL (11/11/2012 11:41 AM INSTRUCTIONAL FACILITATOR) [facility] Mycoplasma pneumoniae Antibody IgG EIA 1.69(H) <=0.90 ISR [facility] ([facility]) Comment: Reference Ranges: <=0.90 ? Negative - [...] pneumoniae Antibody IgM 91 <770 U/mL [facility]) Comment: Reference Range: ?<770 U/ml ?Negative 770-950 U/mL ?Low positive ?>950 U/mL ?Positive Test Performed at: [facility]/[address] ??[phone] JUAREZ HOBBS MD Urine specimen (specimen) 11/11/2012 11:41 AM INSTRUCTIONAL FACILITATOR 11/11/2012 11:42 AM INSTRUCTIONAL FACILITATOR Perez Cervantes MD LAB - SEROLOGY ORDER ADELAIDE [facility]) * (ABNORMAL) PARVOVIRUS B19 IGG/IGM AB PANEL (11/01/2012 1:01 PM INSTRUCTIONAL FACILITATOR) Parvovirus B19 Antibody IgG 3.9(H) <0.9 index [facility] ([facility]) Parvovirus B19 Antibody IgM 0.1 <0.9 index [facility]) Comment: Reference range: IgG and IgM Index [...] infection in these patients. Test Performed at: [facility]/[address] ??[phone] JUAREZ HOBBS MD 11/01/2012 1:01 PM INSTRUCTIONAL FACILITATOR 11/01/2012 1:01 PM INSTRUCTIONAL FACILITATOR Perez Cervantes MD LAB - SEROLOGY ORDER ADELAIDE [facility] ([facility]) Care Teams Vp Hr Diversity Relationship Specialty [place] [id number] [address] PCP - General Family Medicine 03/27/24
--- OUTSIDE RECORDS SUMMARY | 2024-11-13 17:45 | XMS_ITS | Encounter Summary ---
Author Organization [facility] Address [address] [place] [address] Care Team Providers Care River Captain Name Role Phone Dayanara Plaza MD Primary Care Provider [phone] Encounter Details Date Type Department Care Team (Late Contact Info) Description 10/05/2024 Lab Requisition [facility] - DermPath Lab [address] [place] [address] Elida Reyes DO [address] [place] [address] [address] [place] [address] Social History Tobacco Use Types Packs/Day Years [...] Office Visit [facility] - Rheumatology [facility] [place] [address] Perez Cervantes MD [facility] 2L [place] [address] documented as of this encounter Procedures Procedure Name Priority Date/Time Associated Diagnosis Comments DERMATOPATHOLOGY Routine 10/05/2024 10:3 3 AM CREDIT AND COLLECTION MANAGER documented in this encounter Results * DERMATOPATHOLOGY (10/05/2024 10:33 AM CREDIT AND COLLECTION MANAGER) Case Report Dermatopathology Report ? Case: [id number] ? Authorizing Provider: ??Elida Reyes, ?? Collected: ? 10/05/2024 10:33 AM ? Ordering Location: ? [facility] - ??Received: ?10/05/2024 04:35 PM ? DermPath Lab ? Pathologist: ? Kassandra Maurer MD ? Specimen: ?Skin, left upper arm ? 4 1:26 PM CREDIT AND COLLECTION MANAGER DERMATOPATHOLOGY LABORATORY Final Diagnosis Specimen A. SKIN, left upper arm: LICHEN PLANUS-LIKE KERATOSIS (BENIGN LICHENOID KERATOSIS) (L82.1) 1:26 PM [facility] DERMATOPATHOLOGY LABORATORY Clinical History R/O NMSC 1:26 PM [facility] DERMATOPATHOLOGY LABORATORY Gross Description Specimen A: Received is one formalin filled container labeled with the patient's name and designated left upper arm. The specimen consists of a shave biopsy measuring 8x7x1 mm. Jar 0. 1:26 PM [facility] DERMATOPATHOLOGY LABORATORY Microscopic Description Specimen A. SKIN, left upper arm: The epidermis is mildly acanthotic. There is a lichenoid infiltrate with vacuolar changes of basilar keratinocytes and scattered necrotic keratinocytes. 1:26 PM [facility] DERMATOPATHOLOGY LABORATORY Disclaimer An external and internal positive and negative controls are appropriate for the histochemical, immunohistochemical and immunofluorescence stain(s) in this case (if any), except where stated explicitly. The performance characteristics of the stain(s) cited in this report were developed and its performance characteristic determined by the Dermatopathology Laboratory at [facility], directed by Dr. Robbin Dunbar. These tests need not be, and therefore are not, approved by the [place] Food and Drug Administration. The tests are used for clinical purposes. Billing Codes Specimen Charges Stain Charges 01244 1 1:26 PM CREDIT AND COLLECTION MANAGER DERMATOPATHOLOGY LABORATORY Embedded Images 1:26 PM [facility] DERMATOPATHOLOGY LABORATORY Pathology/Cytolo gy TISSUE SPECIMEN FROM SKIN / Unknown 10/05/2024 10:33 AM CREDIT AND COLLECTION MANAGER 10/05/2024 4:35 PM CREDIT AND COLLECTION MANAGER Elida Reyes DO LAB - PATHOLOGY/C YTOLOGY ORDERABLES DERMATOPATHOLOGY LABORATORY [facility] - Department of Dermatology [address], [address] [phone] documented in this encounter Visit Diagnoses Not on filedocumented in this encounter Care Teams River Captain Relationship Specialty [place] [address] [address] [address] PCP - General Family Medicine 03/27/24 documented as of this encounter
--- OUTSIDE RECORDS SUMMARY | 2024-11-13 17:46 | XMS_ITS | Encounter Summary ---
Author Organization [facility] Health Address [address] [place] [address] Care Team Providers Care Bracelet And Brooch Maker Name Role Phone Jaspreet Pearl MD Primary Care Provider + Reason for Visit * Reason Onset Date Comments LABS ONLY 10/01/2023 Encounter Details Date Type Department Care Team (Late st Contact Info) Description 10/01/2023 Telephone [facility] - Rheumatology [address] [place] [address], [facility] [place] [address] Perez Cervantes MD [address] [place] [address] [place] [address] LABS ONLY Social History Tobacco [...] patient. Perez Cervantes MD, FACP, FAAP, MACR Director Of Campus Recreation and Pediatric Rheumatology Professor of Internal Medicine,Pediatrics, and Molecular Immunology [facility] RAL ACTIVITIES THERAPIST documented in this encounter Plan of Treatment Upcoming Encounters Date Type Department Care Team (Late st Contact Info) Description 03/27/2025 1:00 PM CDT Office Visit [facility] - Rheumatology [address] [place] [address], [place] [address] Perez Cervantes MD [address] [place] [address] 2L [place] [address] documented as of this encounter Visit Diagnoses Not on filedocumented in this encounter Care Teams Bracelet And Brooch Maker Relationship Specialty Start Date End Date Jaspreet Pearl MD PCP - General 08/08/18 03/26/24 documented as of this encounter
--- OUTSIDE RECORDS SUMMARY | 2024-11-13 17:46 | XMS_ITS | Encounter Summary ---
Author Organization [facility] Health Address [address] [facility] [place] [address] Care Team Providers Care Box Car Bracer Name Role Phone Jaspreet Pearl MD Primary Care Provider + Reason for Visit * Reason Comments Refill Request Encounter Details Date Type Department Care Team (Late st Contact Info) Description 04/01/2023 Refill [facility] - Rheumatology [address] [place] [address], [place] [address] Perez Cervantes MD [address] [place] [address] [place] [address] Refill Request Social History Tobacco [...] Office Visit [facility] - Rheumatology [address] [place] [address], [place] [phone] Perez Cervantes MD [address] [place] [address] [place] [phone] documented as of this encounter Visit Diagnoses Diagnosis Polyarthritis Unspecified polyarthropathy or polyarthritis, site unspecified documented in this encounter Care Teams Box Car Bracer Relationship Specialty Start Date End Date Jaspreet Pearl MD PCP - General 08/08/18 03/26/24 documented as of this encounter
--- OUTSIDE RECORDS SUMMARY | 2024-11-13 17:46 | XMS_ITS | Encounter Summary ---
Author Organization [facility] Address [address] [place] [address] Care Team Providers Care Mechanical Manufacturing Engineer Name Role Phone Jaspreet Pearl MD Primary Care Provider + Encounter Details Date Type Department Care Team (Late Contact Info) Description 05/27/2022 Orders Only [facility] [place] [address] Perez Cervantes MD [address] [place] [address] 2L [place] [address] Encounter for therapeutic drug monitoring [...] Visit [facility] - Rheumatology [address] [place] [address], [place] [phone] Perez Cervantes MD [address] [place] [address] 2L [place] [address] documented as of this encounter [...] Comment: REPORT COMMENT: FASTING:YES Test Performed at: [employer] [address] [place], [place] ??[address] ASPEN HOLLINGSWORTH DO,MPH Blood BLOOD SPECIMEN / Unknown 05/28/2022 8:17 AM CDT 05/28/2022 8:17 AM CDT Perez Cervantes MD LAB - CHEMISTRY GERA DAVID [facility] [address] [place] [address] documented in this encounter Visit Diagnoses Diagnosis Encounter for therapeutic drug monitoring- Primary documented in this encounter Care Teams Mechanical Manufacturing Engineer Relationship Specialty Start Date End Date Jaspreet Pearl MD PCP - General 08/08/18 03/26/24 documented as of this encounter
--- OUTSIDE RECORDS SUMMARY | 2024-11-13 17:46 | XMS_ITS | Encounter Summary ---
Author Organization [facility] Address [address] [facility] [place] [address] Care Team Providers Care Senior Engineering Specialist Name Role Phone Jaspreet Pearl MD [...] Visit [facility] - Rheumatology [address] [place] [address], [place] [address] Perez Cervantes MD [address] [place] [address] 2L [place] [address] documented as of this encounter Visit Diagnoses Not on filedocumented in this encounter Care Teams Senior Engineering Specialist Relationship Specialty Start Date End Date Jaspreet Pearl MD PCP - General 08/08/18 03/26/24 documented as of this encounter
--- OUTSIDE RECORDS SUMMARY | 2024-11-13 17:46 | XMS_ITS | Encounter Summary ---
Author Organization [facility] Address [address] [facility] [place] [address] Care Team Providers Care Division Sales Manager Name Role Phone Jaspreet eParl MD Primary Care Provider + Encounter Details Date Type Department Care Team (Late Contact Info) Description 04/17/2022 Orders Only [facility] Pediatrics - Rheumatology [address] [place] [address]. [place] [address] Perez Cervantes MD [address] [place] [address] 2L [place] [phone] Social History Tobacco Use Types Packs/Day Years [...] Visit [facility] - Rheumatology [address] [place] [address], [place] [address] Perez Cervantes MD [address] [place] [address] 2L [place] [phone] documented as of this encounter Visit Diagnoses Not on filedocumented in this encounter Care Teams Division Sales Manager Relationship Specialty Start Date End Date Jaspreet Pearl MD PCP - General 08/08/18 03/26/24 documented as of this encounter
--- OUTSIDE RECORDS SUMMARY | 2024-11-13 17:46 | XMS_ITS | Encounter Summary ---
Author Organization [facility] Health Address [address] [facility] [place] [address] Care Team Providers Care Car Carder Name Role Phone Jaspreet eParl MD Primary Care Provider + Reason for Visit * Reason Comments Follow-up F/U PER Dr CERVANTES Encounter Details Date Type Department Care Team (Late st Contact Info) Description 09/01/2022 3:40 PM CDT Office Visit [facility] [address] [place] [address], [place] [address] Perez Cervantes MD [address] [place] [address] [place] [address] Encounter for therapeutic drug monitoring [...] No adenopathy/thyromegaly/tenderness (General) Unremarkable (Extrem) HNs DIPs/BNs PIps/DETENTION; 1-3rd MCps SfT0' 2-4th MTPs SfT0; No odnta synovitis. MS= bilat (Assess) RA in medical remission (Plan) Continue same meds with labs q 6 months. CXR today. TB screening with next draw. RTO in 6 months. Discussed with patient. Perez Cervantes MD, FACP, FAAP, MACR Licensed Midwife and Pediatric Rheumatology Professor of Internal Medicine,Pediatrics, and Molecular Immunology [facility] documented in this encounter Plan of Treatment Upcoming Encounters Date Type Department Care Team (Late st Contact Info) Description 03/27/2025 1:00 PM CDT Office Visit [facility] - Rheumatology [address] [facility], [place] [address] Perez Cervantes MD [facility] 2L [place] [phone] documented as of this encounter Procedures Procedure Name Priority Date/Time Associated Diagnosis Comments URINALYSIS W/MICROSCOPIC REFLEX TO CULTURE Routine 09/25/2022 8:39 AM ANTI AIR WARFARE OPERATIONS OFFICER Encounter for therapeutic drug monitoring Polyarthritis C-REACTIVE PROTEIN Routine 09/25/2022 8: 39 AM ANTI AIR WARFARE OPERATIONS OFFICER Encounter for therapeutic drug monitoring Polyarthritis ERYTHROCYTE SEDIMENTATION RATE Routine 09/25/2022 8:39 AM ANTI AIR WARFARE OPERATIONS OFFICER Encounter for therapeutic drug monitoring Polyarthritis CBC W AUTO DIFFERENTIAL Routine 09/25/2022 8:39 AM ANTI AIR WARFARE OPERATIONS OFFICER Encounter for therapeutic drug monitoring Polyarthritis COMPREHENSIVE METABOLIC PANEL Routine 09/25/2022 8:39 AM ANTI AIR WARFARE OPERATIONS OFFICER Encounter for therapeutic drug monitoring Polyarthritis documented in this encounter Results * (ABNORMAL) URINALYSIS W/MICROSCOPIC REFLEX TO CULTURE (09/25/2022 8:39 AM ANTI AIR WARFARE OPERATIONS OFFICER) Color UA YELLOW YELLOW [facility] Appearance CLEAR CLEAR [facility] Specific [place] UA 1.006 1.001 - 1.035 [facility] pH [...] SEEN /LPF [facility] Comment: Test Performed at: [facility] [place] ??[address] NAVID SCOTT MD Urine URINE SPECIMEN OBTAINED BY CLEAN CATCH PROCEDURE / Unknown 09/25/2022 8:39 AM ANTI AIR WARFARE OPERATIONS OFFICER 09/25/2022 8:40 AM ANTI AIR WARFARE OPERATIONS OFFICER Perez Cervantes MD LAB - URINALYSIS ORD ERABLES Performing Organization Address [facility] Co de Phone Number [facility] [address] [place] [address] * ERYTHROCYTE SEDIMENTATION RATE (09/25/2022 8:39 AM ANTI AIR WARFARE OPERATIONS OFFICER) Erythrocyte Sedimentation Rate Westergren 28 < OR = 30 mm/h [facility] Comment: Test Performed at: [facility] [place] [address] [place] ??[address] ASPEN HOLLINGSWORTH DO,MPH Blood BLOOD SPECIMEN / Unknown 09/25/2022 8:39 AM ANTI AIR WARFARE OPERATIONS OFFICER 09/25/2022 8:40 AM ANTI AIR WARFARE OPERATIONS OFFICER Perez Cervantes MD LAB - HEMATOLOGY ORD ERABLES Performing Organization Address [facility] de Phone Number [facility] [address] [place] [phone] * C-REACTIVE PROTEIN (09/25/2022 8:39 AM ANTI AIR WARFARE OPERATIONS OFFICER) C-Reactive Protein 5.1 <8.0 mg/L [facility] Comment: Test Performed at: [facility] [place] [address] [place] ??[address] ASPEN HOLLINGSWORTH DO,MPH Blood BLOOD SPECIMEN / Unknown 09/25/2022 8:39 AM ANTI AIR WARFARE OPERATIONS OFFICER 09/25/2022 8:40 AM ANTI AIR WARFARE OPERATIONS OFFICER Perez Cervantes MD LAB - CHEMISTRY ORDE JOANN Performing Organization Address [facility] de Phone Number [facility] [address] [place] [address] * (ABNORMAL) COMPREHENSIVE METABOLIC PANEL (09/25/2022 8:39 AM ANTI AIR WARFARE OPERATIONS OFFICER) Glucose 91 65 - 99 mg/dL [facility] [...] 29 U/L [facility] Comment: Test Performed at: [facility] [place] [facility] ??[address] ASPEN HOLLINGSWORTH DO,MPH Blood BLOOD SPECIMEN / Unknown 09/25/2022 8:39 AM ANTI AIR WARFARE OPERATIONS OFFICER 09/25/2022 8:40 AM ANTI AIR WARFARE OPERATIONS OFFICER Perez Cervantes MD LAB - CHEMISTRY GERA DAVID [facility] Organization Address City/State/ZIP Co de Phone Number [facility] [address] [place] [address] * (ABNORMAL) CBC WITH DIFFERENTIAL (09/25/2022 8:39 AM ANTI AIR WARFARE OPERATIONS OFFICER) White Blood Cell Count 4.1 3.8 - [...] 0.5 % [facility] Comment: Test Performed at: [employer] [address] [place] ??[address] ASPEN HOLLINGSWORTH DO,MPH Blasts [facility] nRBC [facility] Comments [facility]ST Comment: Test Performed at: [employer] [address] [place], [place] ??[address] ASPEN HOLLINGSWORTH DO,MPH Blood BLOOD SPECIMEN / Unknown 09/25/2022 8:39 AM ANTI AIR WARFARE OPERATIONS OFFICER 09/25/2022 8:40 AM ANTI AIR WARFARE OPERATIONS OFFICER Perez Cervantes MD LAB - HEMATOLOGY ORD ERABLES Performing Organization Address City/State/[facility] Co de Phone Number [facility] [address] [place] [address] * XR CHEST 2VW (09/01/2022 4:36 PM CDT) Anatomical Region Laterality Modality Chest Radiographic Corin ging 09/02/2022 7:40 AM CDT Narrative 09/02/2022 9:38 AM CDT PROCEDURE: ??XR CHEST 2VW, DATE/TIME OF EXAM: ??09/01/2022 4:36 PM, LOCATION [facility] INDICATION: Z51.81: Encounter for therapeutic drug monitoring COMPARISON: Chest x-ray 06/09/2021 FINDINGS/IMPRESSION: There is no focal consolidation, pleural effusion, or pneumothorax. The cardiomediastinal silhouette is normal. The visible bony thorax is intact. Report dictated by Wm Tran MD, MD (radiology therapist). Dameon Osorio have personally reviewed and interpreted this examination/study. > Interpreting Provider: Dameon Johnson on 09/02/2022 9:38 AM Procedure Note Dameon Johnson MD - 09/02/2022 PROCEDURE: XR CHEST 2VW, DATE/TIME OF EXAM: 09/01/2022 4:36 PM, LOCATION [facility] INDICATION: Z51.81: Encounter for therapeutic drug monitoring COMPARISON: Chest x-ray 06/09/2021 FINDINGS/IMPRESSION: There is no focal consolidation, pleural effusion, or pneumothorax. The cardiomediastinal silhouette is normal. The visible bony thorax isintact. Report dictated by Wm Tran MD, (radiology therapist). Dameon Osorio have personally reviewed and interpreted [...] monitoring documented in this encounter Care Teams Car Carder Relationship Specialty Start Date End Date Jaspreet Pearl MD PCP - General 08/08/18 03/26/24 documented as of this encounter
--- OUTSIDE RECORDS SUMMARY | 2024-11-13 17:46 | XMS_ITS | Encounter Summary ---
Author Organization [facility] Address [address] [facility] [place] [address] Care Team Providers Care Nuclear Scientist Name Role Phone Jaspreet Pearl MD Primary Care Provider + Encounter Details Date Type Department Care Team (Late Contact Info) Description 09/25/2022 Orders Only [facility] [address] [place] [phone] Perez Cervantes MD [address] [place] [address] 2[place] [address] Social History Tobacco Use Types [...] Office Visit [facility] - Rheumatology [address] [place] [phone] Perez Cervantes MD [address] [place] [address] 2[place] [phone] documented as of this encounter Procedures Procedure Name Priority Date/Time Associated Diagnosis Comments QUANTIFERON-TB GOLD PLUS 1-TUBE 09/25/2022 8:39 AM CARDIAC CATHETERIZATION TECHNICIAN CULTURE URINE REFLEXED II 09/25/2022 8:39 AM CARDIAC CATHETERIZATION TECHNICIAN CULTURE URINE 09/25/2022 8:39 AM CARDIAC CATHETERIZATION TECHNICIAN documented in this encounter Results * CULTURE URINE (09/25/2022 8:39 AM CARDIAC CATHETERIZATION TECHNICIAN) Pathologist [facility] Culture [facility] Comment: ??CULTURE, URINE, ROUTINE ?Micro Number: ?[id number] ??Test Status: ? Final ??Specimen Source: ?? Urine ??Specimen Quality: ??Adequate ??Result: ?No Growth Test Performed at: [facility] ??[address] NAVID SCOTT MD 09/25/2022 8:39 AM CARDIAC CATHETERIZATION TECHNICIAN 09/25/2022 8:40 AM CARDIAC CATHETERIZATION TECHNICIAN Perez Cervantes MD LAB - MICROBIOLOGY O RDERABLES [address] [address] * QUANTIFERON-TB GOLD PLUS 1-TUBE (09/25/2022 8:39 AM CARDIAC CATHETERIZATION TECHNICIAN) Pathologist [facility] QuantiFERON TB Gold [...] T-lymphocytes. For additional information, please refer to https://education.Hotelzilla.Appcelerator/faq/EXV901 (This link is being provided for informational/ educational purposes only.) Test Performed at: [facility] [place] [address] [place], [place] ??[address] ASPEN HOLLINGSWORTH DO,MPH 09/25/2022 8:39 AM CARDIAC CATHETERIZATION TECHNICIAN 09/25/2022 8:40 AM CARDIAC CATHETERIZATION TECHNICIAN Perez Cervantes MD LAB - CHEMISTRY GERA DAVID Performing Organization Address [facility] [address] [facility]/[place] de Phone Number [address] [address] * CULTURE URINE REFLEXED II (09/25/2022 8:39 AM CARDIAC CATHETERIZATION TECHNICIAN) Reflexive Urine Culture See Below [facility] Comment: CULTURE INDICATED - RESULTS TO FOLLOW Test Performed at: [facility] ??[address] NAVID SCOTT MD 09/25/2022 8:39 AM CARDIAC CATHETERIZATION TECHNICIAN 09/25/2022 8:40 AM CARDIAC CATHETERIZATION TECHNICIAN Perez Cervantes MD LAB - MICROBIOLOGY O RDERABLES Performing Organization Address City/[facility] [address]/[facility] Co de Phone Number [address] [address] documented in this encounter Visit Diagnoses Not on filedocumented in this encounter Care Teams Nuclear Scientist Relationship Specialty Start Date End Date Jaspreet Pearl MD PCP - General 08/08/18 03/26/24 documented as of this encounter
--- OUTSIDE RECORDS SUMMARY | 2024-11-13 17:46 | XMS_ITS | Encounter Summary ---
Author Organization [facility] Address [address] [facility] [place] [address] Care Team Providers Care Schedule Checker Name Role Phone Jaspreet Pearl MD Primary Care Provider + Encounter Details Date Type Department Care Team (Late Contact Info) Description 06/04/2023 Orders Only [facility] [address] [place] [phone] Perez Cervantes MD [address] [place] [address] 2[place] [address] Encounter for therapeutic drug monitoring; [...] Visit [facility] Rhe[facility] [address] [place] [phone] Perez Cervantes MD [address] [place] [address] 2L [place] [phone] documented as of this encounter Procedures Procedure [...] [facility] Comment: ??CULTURE, URINE, ROUTINE ?Micro Number: ?[id number] ??Test Status: ? Final ??Specimen Source: ?? Urine ??Specimen Quality: ??Adequate ??Result: ?Less than 10,000 CFU/mL of single Gram negative ? organism isolated. No further testing will be ? performed. If clinically indicated, recollection ? using a method to minimize contamination, with ? prompt transfer to Urine Culture Transport Tube, ? is recommended. REPORT COMMENT: FASTING:YES Test Performed at: [address] ??[address] NAVID SCOTT MD 06/07/2023 8:01 AM CDT 06/07/2023 8:01 AM CDT Perez Cervantes MD LAB - MICROBIOLOGY O JOEY Performing Organization Address [facility] Co de Phone Number [address] [address] * CULTURE URINE REFLEXED II (06/07/2023 8:01 AM CDT) Reflexive Urine Culture See Below [facility] Comment: CULTURE INDICATED - RESULTS TO FOLLOW Test Performed at: [address] ??[address] NAVID SCOTT MD 06/07/2023 8:01 AM CDT 06/07/2023 8:01 AM CDT Perez Cervantes MD LAB - MICROBIOLOGY O JOEY Performing Organization Address [facility] Co de Phone Number [address] [address] * (ABNORMAL) URINALYSIS W/MICROSCOPIC REFLEX TO CULTURE (06/07/2023 8:01 AM CDT) Color UA YELLOW YELLOW [facility] Appearance CLEAR CLEAR [facility] Specific [place] UA 1.019 1.001 - 1.035 [facility] pH [...] elements seen were reported. Test Performed at: [employer] ??[address] NAVID SCOTT MD Urine URINE SPECIMEN OBTAINED BY CLEAN CATCH PROCEDURE / Unknown 06/07/2023 8:01 AM CDT 06/07/2023 8:01 AM CDT Perez Cervantes MD LAB - URINALYSIS ORD ERABLES Performing Organization Address [facility]/ZIP Co de Phone Number [address] [address] * ERYTHROCYTE SEDIMENTATION RATE (06/07/2023 8:01 AM CDT) Erythrocyte Sedimentation Rate Westergren 11 < OR = 30 mm/h [facility] Comment: Test Performed at: [facility] [address] [place], [place] ??[address] NAVID SCOTT MD Blood BLOOD SPECIMEN / Unknown 06/07/2023 8:01 AM CDT 06/07/2023 8:01 AM CDT Perez Cervantes MD LAB - HEMATOLOGY ORD DANITA Performing Organization Address [facility] Co de Phone Number [address] [address] * C-REACTIVE PROTEIN (06/07/2023 8:01 AM CDT) C-Reactive Protein 2.2 <8.0 mg/L [facility] Comment: Test Performed at: [facility] [place] [address] [place], [place] ??[address] NAVID SCOTT MD Blood BLOOD SPECIMEN / Unknown 06/07/2023 8:01 AM CDT 06/07/2023 8:01 AM CDT Perez Cervantes MD LAB - CHEMISTRY GERA DAVID Performing Organization Address [facility] Co de Phone Number [address] [address] * COMPREHENSIVE METABOLIC PANEL (06/07/2023 8:01 AM [...] 29 U/L [facility] Comment: Test Performed at: [employer] [address] ??[address] NAIVD SCOTT MD Blood BLOOD SPECIMEN / Unknown 06/07/2023 8:01 AM CDT 06/07/2023 8:01 AM CDT Perez Cervantes MD LAB - CHEMISTRY GERA DAVID [facility] [address] [place] [address] * CBC WITH DIFFERENTIAL (06/07/2023 8:01 AM CDT) [facility] White Blood Cell Count 4.3 3.8 - [...] 0.2 % [facility] Comment: Test Performed at: [facility] [place], [place] ??[address] NAVID SCOTT MD Blasts [facility] nRBC [facility] Comments [facility] Comment: Test Performed at: [facility] [place], [place] ??[address] NAVID SCOTT MD Blood BLOOD SPECIMEN / Unknown 06/07/2023 8:01 AM CDT 06/07/2023 8:01 AM CDT Perez Cervantes MD LAB - HEMATOLOGY ORD ERABLES [facility] [address] [place] [address] documented in this encounter Visit Diagnoses Diagnosis Encounter for therapeutic drug monitoring Polyarthritis Unspecified polyarthropathy or polyarthritis, site unspecified documented in this encounter Care Teams Schedule Checker Relationship Specialty Start Date End Date Jaspreet Pearl MD PCP - General 08/08/18 03/26/24 documented as of this encounter
--- OUTSIDE RECORDS SUMMARY | 2024-11-13 17:46 | XMS_ITS | Encounter Summary ---
Author Organization [facility] Address [address] [facility] [place] [address] Care Team Providers Care Dope Sprayer Name Role Phone Jaspreet Pearl MD Primary Care Provider + Encounter Details Date Type Department Care Team (Late Contact Info) Description 07/30/2023 Orders Only [facility] [address] [place] [phone] Perez Cervantes MD [address] [place] [address] 2[place] [address] Encounter for therapeutic drug monitoring; [...] Visit [facility] - [facility] [address] [place] [phone] Perez Cervantes MD [address] [place] [address] 2L [place] [phone] documented as of this encounter Procedures Procedure [...] [facility] Comment: ??CULTURE, URINE, ROUTINE ?Micro Number: ?[id number] ??Test Status: ? Final ??Specimen Source: ?? Urine ??Specimen Quality: ??Adequate ??Result: ?Mixed genital erin isolated. These superficial ? bacteria are not indicative of a urinary tract ? infection. No further organism identification is ? warranted on this specimen. If clinically ? indicated, recollect clean-catch, mid-stream ? urine and transfer immediately to Urine Culture ? Transport Tube. REPORT COMMENT: FASTING:YES Test Performed at: [address] ??[address] NAVID SCOTT MD 08/02/2023 7:23 AM CDT 08/02/2023 7:23 AM CDT Perez Cervantes MD LAB - MICROBIOLOGY O JOEY Performing Organization Address [facility] Co de Phone Number [address] [address] * CULTURE URINE REFLEXED II (08/02/2023 7:23 AM CDT) Reflexive Urine Culture See Below [facility] Comment: CULTURE INDICATED - RESULTS TO FOLLOW Test Performed at: [employer] [address] ??[address] NAVID SCOTT MD 08/02/2023 7:23 AM CDT 08/02/2023 7:23 AM CDT Perez Cervantes MD LAB - MICROBIOLOGY O JOEY Performing Organization Address [facility] Co de Phone Number [address] [address] * (ABNORMAL) URINALYSIS W/MICROSCOPIC REFLEX TO CULTURE (08/02/2023 7:23 AM CDT) Color UA YELLOW YELLOW [facility] Appearance CLEAR CLEAR [facility] Specific [place] UA 1.013 1.001 - 1.035 [facility] pH [...] elements seen were reported. Test Performed at: [employer] [facility] [employer] ??[address] NAVID SCOTT MD Urine URINE SPECIMEN OBTAINED BY CLEAN CATCH PROCEDURE / Unknown 08/02/2023 7:23 AM CDT 08/02/2023 7:23 AM CDT Perez Cervantes MD LAB - URINALYSIS ORD ERABLES Performing Organization Address [facility] Co de Phone Number [address] [address] * ERYTHROCYTE SEDIMENTATION RATE (08/02/2023 7:23 AM CDT) Erythrocyte Sedimentation Rate Westergren 11 < OR = 30 mm/h [facility] Comment: Test Performed at: [employer] [facility] [place] [address] [place], [place] ??[address] NAVID SCOTT MD Blood BLOOD SPECIMEN / Unknown 08/02/2023 7:23 AM CDT 08/02/2023 7:23 AM CDT Perez Cervantes MD LAB - HEMATOLOGY ORD ERABLES Performing Organization Address [facility] Co de Phone Number [address] [address] * C-REACTIVE PROTEIN (08/02/2023 7:23 AM CDT) C-Reactive Protein 2.4 <8.0 mg/L [facility] Comment: Test Performed at: [employer] [facility] [place] [address] [place], [place] ??[address] NAVID SCOTT MD Blood BLOOD SPECIMEN / Unknown 08/02/2023 7:23 AM CDT 08/02/2023 7:23 AM CDT Perez Cervantes MD LAB - CHEMISTRY ORDE JOANN Performing Organization Address [facility] Co de Phone Number [address] [address] * COMPREHENSIVE METABOLIC PANEL (08/02/2023 7:23 AM CDT) Pathologist [facility] Glucose 83 65 - 99 mg/dL [facility] [...] 29 U/L [facility] Comment: Test Performed at: [employer] [facility] [employer] [address] ??[address] NAVID SCOTT MD Blood BLOOD SPECIMEN / Unknown 08/02/2023 7:23 AM CDT 08/02/2023 7:23 AM CDT Perez Cervantes MD LAB - CHEMISTRY GERA DAVID [facility] [address] [place] [address] * CBC WITH DIFFERENTIAL (08/02/2023 7:23 AM CDT) Pathologist [facility] White Blood Cell Count 5.8 3.8 - [...] 0.3 % [facility] Comment: Test Performed at: [employer] [place], [place] ??[address] NAVID SCOTT MD Blasts [facility] nRBC [facility] Comments [facility] Comment: Test Performed at: [employer] [place], [place] ??[address] NAVID SCOTT MD Blood BLOOD SPECIMEN / Unknown 08/02/2023 7:23 AM CDT 08/02/2023 7:23 AM CDT Perez Cervantes MD LAB - HEMATOLOGY ORD [facility] [address] [place] [address] documented in this encounter Visit Diagnoses Diagnosis Encounter for therapeutic drug monitoring Polyarthritis Unspecified polyarthropathy or polyarthritis, site unspecified documented in this encounter Care Teams Dope Sprayer Relationship Specialty Start Date End Date Jaspreet Pearl MD PCP - General 08/08/18 03/26/24 documented as of this encounter
--- OUTSIDE RECORDS SUMMARY | 2024-11-13 17:46 | XMS_ITS | Encounter Summary ---
Author Organization [facility] Health Address [address] [facility] [place] [address] Care Team Providers Care Help Desk Supervisor Name Role Phone Jaspreet Pearl MD Primary Care Provider + Encounter Details Date Type Department Care Team (Latest Contact Info) Description 08/31/2023 2:55 PM CDT - 08/31/2023 11:59 PM CDT Hospital Encounter [facility] LAB OP DRAW STATION [address] [place] [address] Perez Cervantes MD [address] [place] [address] Discharge Disposition: Home or Self [...] End Date Azelastine HCl 137 MCG/SPRAY SOLN [place] 2 sprays into the nose 2 times [...] (one) capsule by mouth once daily 03/27/2024 Fork-3 Fatty Acids (Fish Oil) 1200 MG 1 cap 4 documented as of this encounter Plan of Treatment Upcoming Encounters Date Type Department Care Team (Late st Contact Info) Description 03/27/2025 1:00 PM CDT Office Visit [facility] - Rheumatology [address] [place] [address], [facility] [place] [phone] Perez Cervantes MD [address] [place] [address] [place] [phone] documented as of this encounter Visit Diagnoses Not on filedocumented in this encounter Care Teams Help Desk Supervisor Relationship Specialty Start Date End Date Jaspreet Pearl MD PCP - General 08/08/18 03/26/24 documented as of this encounter
--- OUTSIDE RECORDS SUMMARY | 2024-11-13 17:46 | XMS_ITS | Encounter Summary ---
Author Organization [facility] Address [address] [facility] [place] [address] Care Team Providers Care Case Resource Manager Name Role Phone Jaspreet Pearl MD [...] Office Visit [facility] Rhe[facility]ology [address] [place] [address], [place] [phone] Perez Cervantes MD [address] [place] [address] 2L [place] [phone] documented as of this encounter Visit Diagnoses Not on filedocumented in this encounter Care Teams Case Resource Manager Relationship Specialty Start Date End Date Jaspreet Pearl MD [phone] (work) PCP - General 08/08/18 03/26/24 documented as of this encounter
--- OUTSIDE RECORDS SUMMARY | 2024-11-13 17:46 | XMS_ITS | Encounter Summary ---
Author Organization [facility] Address [address] [facility] [place] [address] Care Team Providers Care Solar Installation Crew Supervisor Name Role Phone Jaspreet Pearl MD Primary Care Provider + Encounter Details Date Type Department Care Team (Latest Contact Info) Description 08/31/2023 2:54 PM CDT Hospital Encounter [facility] DIAGNOSTIC RAD OP [address] [place] [phone] Perez Cervantes MD [address] [facility] 2L [place] [address] Discharge Disposition: Home or Self [...] End Date Azelastine HCl 137 MCG/SPRAY SOLN [place] 2 sprays into the nose 2 times [...] (one) capsule by mouth once daily 03/27/2024 Lowman-3 Fatty Acids (Fish Oil) 1200 MG 1 cap 4 documented as of this encounter Plan of Treatment Upcoming Encounters Date Type Department Care Team (Late st Contact Info) Description 03/27/2025 1:00 PM CDT Office Visit [facility] [address] [place] [address], [facility] [place] [phone] Perez Cervantes MD [address] [place] [address] [place] [address] documented as of this encounter [...] DATE/TIME OF EXAM: ??08/31/2023 3:04 PM, LOCATION [facility] INDICATION: Z79.899: Encounter for long-term (current) use of medications ADDITIONAL CLINICAL INFORMATION: Ordering Provider Reason For Exam: ??Monitoring Medication COMPARISON: Chest radiograph dated 09/01/2022 FINDINGS/IMPRESSION: There is no focal consolidation, pleural effusion, or pneumothorax. The cardiomediastinal silhouette is normal. The visible bony thorax is intact. > Dictated by Hemanth Vazquez MD (residential team leader). Dann Osorio MD have personally reviewed and interpreted this examination/study. > Interpreting Provider: Dann Mccoy MD on 09/01/2023 1:34 AM Procedure Note Dann Mccoy MD - 09/01/2023 PROCEDURE: XR CHEST 2VW, DATE/TIME OF EXAM: 08/31/2023 3:04 PM, LOCATION [facility] INDICATION: Z79.899: Encounter for long-term (current) use of medications ADDITIONAL CLINICAL INFORMATION: Ordering Provider Reason For Exam: Monitoring Medication COMPARISON: Chest radiograph dated 09/01/2022 FINDINGS/IMPRESSION: There is no focal consolidation, pleural effusion, or pneumothorax. The cardiomediastinal silhouette is normal. The visible bony thorax isintact. > Dictated by Hemanth Vazquez MD (residential team leader). Dann Osorio MD have personally reviewed and interpreted this examination/study. > Interpreting Provider: Dann Mccoy MD on 09/01/2023 1:34 AM Perez Cervantes MD DIAGNOSTIC IMAGING O RDERABLES documented in this encounter Visit Diagnoses Diagnosis Encounter for long-term (current) use of medications Encounter for long-term (current) use of other medications documented in this encounter Care Teams Solar Installation Crew Supervisor Relationship Specialty Start Date End Date Jaspreet Pearl MD PCP - General 08/08/18 03/26/24 documented as of this encounter
--- OUTSIDE RECORDS SUMMARY | 2024-11-13 17:46 | XMS_ITS | Encounter Summary ---
Author Organization [facility] Address [address] [facility] [place] [address] Care Team Providers Care Spooler Operator Automatic Name Role Phone Jaspreet Pearl MD Primary Care Provider + Encounter Details Date Type Department Care Team (Late Contact Info) Description 02/12/2023 Orders Only [facility] [address] [place] [phone] Perez Cervantes MD [address] [place] [address] 2[place] [address] Encounter for therapeutic drug monitoring; [...] Visit [facility] [address] [place] [phone] Perez Cervantes MD [address] [place] [address] 2L [place] [address] documented as of this encounter Visit Diagnoses Diagnosis Encounter for therapeutic drug monitoring Polyarthritis Unspecified polyarthropathy or polyarthritis, site unspecified documented in this encounter Care Teams Spooler Operator Automatic Relationship Specialty Start Date End Date Jaspreet Pearl MD PCP - General 08/08/18 03/26/24 documented as of this encounter
--- OUTSIDE RECORDS SUMMARY | 2024-11-13 17:46 | XMS_ITS | Encounter Summary ---
Author Organization [facility] Address [address] [facility] [place] [address] Care Team Providers Care Mangle Feeder Name Role Phone Jaspreet Pearl MD Primary Care Provider + Reason for Visit * Reason Comments Follow-up 6 MONTH F/U Encounter Details Date Type Department Care Team (Late st Contact Info) Description 03/02/2023 2:40 PM CDT Office Visit [facility] [address] [place] [address], [place] [address] Perez Cervantes MD [address] [place] [address] [place] [address] Encounter for therapeutic drug monitoring [...] No adenopathy/thyromegaly/tenderness (general) Unremarkable (Extrem) Hns DIps/Bns PIps/LONG TERM prominence.. 1-3rd MCPs SfT0. 2-5th MTPs SfT0. No donta synovitis/tenderness. 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 (Plan) Continue same meds with labs q 8 weeks and yearly TB/Hep screening. May decrease MTX if continues stable. RTO in 6 months. Discussed with patient. Perez Cervantes MD, FACP, FAAP, MACR Graphite Disk Assembler and Pediatric Rheumatology Professor of Internal Medicine,Pediatrics, and Molecular Immunology [facility] (Ass documented in this encounter Plan of Treatment Upcoming Encounters Date Type Department Care Team (Late st Contact Info) Description 03/27/2025 1:00 PM CDT Office Visit [facility] Rhe[facility]ology [address] [place] [address], [place] [address] Perez Cervantes MD [address] [place] [address] [place] [phone] documented as of this encounter Visit Diagnoses Diagnosis Encounter for therapeutic drug monitoring- Primary Polyarthritis Unspecified polyarthropathy or polyarthritis, site unspecified documented in this encounter Care Teams Mangle Feeder Relationship Specialty Start Date End Date Jaspreet Pearl MD PCP - General 08/08/18 03/26/24 documented as of this encounter
--- OUTSIDE RECORDS SUMMARY | 2024-11-13 17:46 | XMS_ITS | Encounter Summary ---
Author Organization [facility] Address [address] [place] [address] Care Team Providers Care Food Service Director Name Role Phone Jaspreet Pearl MD Primary Care Provider + Encounter Details Date Type Department Care Team (Late Contact Info) Description 10/01/2023 Orders Only [facility] [address] [place] [phone] Perez Cervantes MD [address] [place] [address] 2[place] [address] Encounter for therapeutic drug monitoring [...] Office Visit [facility] [address] [place] [phone] Perez Cervantes MD [address] [place] [address] 2[place] [address] documented as of this encounter Procedures Procedure Name Priority Date/Time Associated Diagnosis Comments COMPREHENSIVE METABOLIC PANEL Routine 10/11/2023 7:39 AM DIRECTOR PRODUCT DEVELOPMENT Encounter for therapeutic drug monitoring documented in this encounter Results * (ABNORMAL) COMPREHENSIVE METABOLIC PANEL (10/11/2023 7:39 AM DIRECTOR PRODUCT DEVELOPMENT) Glucose 83 65 - 99 mg/dL [facility] [...] 29 U/L [facility] Comment: Test Performed at: [facility] [address] [place] [address] ??[phone] NAVID SCOTT MD Blood BLOOD SPECIMEN / Unknown 10/11/2023 7:39 AM DIRECTOR PRODUCT DEVELOPMENT 10/11/2023 7:39 AM DIRECTOR PRODUCT DEVELOPMENT Perez Cervantes MD LAB - CHEMISTRY GERA DAVID [facility] [id number] [place] [address] documented in this encounter Visit Diagnoses Diagnosis Encounter for therapeutic drug monitoring- Primary documented in this encounter Care Teams Food Service Director Relationship Specialty Start Date End Date Jaspreet Pearl MD PCP - General 08/08/18 03/26/24 documented as of this encounter
--- OUTSIDE RECORDS SUMMARY | 2024-11-13 17:46 | XMS_ITS | Encounter Summary ---
Author Organization [facility] Address [address] [facility] [place] [address] Care Team Providers Care Substation Manager Name Role Phone Dayanara Plaza MD [...] Visit [facility] [address] [place] [address], [place] [address] Perez Cervantes MD [address] [place] [address] 2L [place] [address] documented as of this encounter Visit Diagnoses Not on filedocumented in this encounter Care Teams Substation Manager Relationship Specialty [place] [id number] [phone] PCP - General Family Medicine 03/27/24 documented as of this encounter
--- OUTSIDE RECORDS SUMMARY | 2024-11-13 17:46 | XMS_ITS | Encounter Summary ---
Author Organization [facility] Address [address] [facility] [place] [address] Care Team Providers Care Retail Project Merchandiser Name Role Phone Jaspreet Pearl MD Primary Care Provider + Encounter Details Date Type Department Care Team (Late Contact Info) Description 04/09/2023 Orders Only [facility] [address] [place] [phone] Perez Cervantes MD [address] [place] [address] 2[place] [address] Encounter for therapeutic drug monitoring; [...] Office Visit [facility] [address] [place] [phone] Perez Cervantes MD [address] [place] [address] 2L [place] [phone] documented as of this encounter Procedures Procedure [...] Comment: NO CULTURE INDICATED Test Performed at: [email or web address] ??[phone] NAVID SCOTT MD 04/15/2023 7:37 AM CDT 04/15/2023 7:37 AM CDT Perez Cervantes MD LAB - MICROBIOLOGY O RDERABLES [address] [address] * URINALYSIS W/MICROSCOPIC REFLEX TO CULTURE (04/15/2023 7:37 AM CDT) Color UA YELLOW YELLOW [facility] Appearance CLEAR CLEAR [facility] Specific Rose UA 1.022 1.001 - 1.035 [facility] pH [...] elements seen were reported. Test Performed at: [email or web address] ??[phone] NAVID SCOTT MD Urine URINE SPECIMEN OBTAINED BY CLEAN CATCH PROCEDURE / Unknown 04/15/2023 7:37 AM CDT 04/15/2023 7:37 AM CDT Perez Cervantes MD LAB - URINALYSIS ORD ERABLES Performing Organization Address [facility] Co de Phone Number [address] [address] * ERYTHROCYTE SEDIMENTATION RATE (04/15/2023 7:37 AM CDT) Erythrocyte Sedimentation Rate Westergren 11 < OR = 30 mm/h [facility] Comment: Test Performed at: [facility] [address] [place], [place] ??[phone] NAVID SCOTT MD Blood BLOOD SPECIMEN / Unknown 04/15/2023 7:37 AM CDT 04/15/2023 7:37 AM CDT Perez Cervantes MD LAB - HEMATOLOGY ORD ERABLES Performing Organization Address [facility] Co de Phone Number [address] [address] * C-REACTIVE PROTEIN (04/15/2023 7:37 AM CDT) C-Reactive Protein 2.7 <8.0 mg/L [facility] Comment: Test Performed at: [email or web address] [address] [place], [place] ??[phone] NAVID SCOTT MD Blood BLOOD SPECIMEN / Unknown 04/15/2023 7:37 AM CDT 04/15/2023 7:37 AM CDT Perez Cervantes MD LAB - CHEMISTRY GERA DAVID [facility] Organization Address City/State/ZIP Co de Phone Number [facility] [address] [place] [address] * (ABNORMAL) COMPREHENSIVE METABOLIC PANEL (04/15/2023 7:37 [...] 29 U/L [facility] Comment: Test Performed at: [facility] [address] [place] [address] [facility] [place] ??[phone] NAVID SCOTT MD Blood BLOOD SPECIMEN / Unknown 04/15/2023 7:37 AM CDT 04/15/2023 7:37 AM CDT Perez Cervantes MD LAB - CHEMISTRY GERA DAVID Performing Organization Address City/[facility]/ZIP Co de Phone Number [facility] [address] [place] [address] * CBC WITH DIFFERENTIAL (04/15/2023 7:37 AM [...] 0.2 % [facility] Comment: Test Performed at: [facility] [address] [place], [place] ??[phone] NAVID SCOTT MD Blasts [facility] nRBC [facility] Comments [facility] Comment: Test Performed at: [facility] [address] [place], [place] ??[phone] NAVID SCOTT MD Blood BLOOD SPECIMEN / Unknown 04/15/2023 7:37 AM CDT 04/15/2023 7:37 AM CDT Perez Cervantes MD LAB - HEMATOLOGY ORD DANITA Performing Organization Address City/[facility]/ZIP Co de Phone Number [facility] [address] [place] [address] documented in this encounter Visit Diagnoses Diagnosis Encounter for therapeutic drug monitoring Polyarthritis Unspecified polyarthropathy or polyarthritis, site unspecified documented in this encounter Care Teams Retail Project Merchandiser Relationship Specialty Start Date End Date Jaspreet Pearl MD PCP - General 08/08/18 03/26/24 documented as of this encounter
--- OUTSIDE RECORDS SUMMARY | 2024-11-13 17:46 | XMS_ITS | Encounter Summary ---
Author Organization [facility] Address [address] [place] [address] Care Team Providers Care Corporate Coordinator Name Role Phone Jaspreet Pearl MD Primary Care Provider + Encounter Details Date Type Department Care Team (Late Contact Info) Description 12/18/2022 Orders Only [facility] [address] [place] [phone] Perez Cervantes MD [address] [place] [address] 2[place] [address] Encounter for therapeutic drug monitoring; [...] Visit [facility] [address] [place] [phone] Perez Cervantes MD [address] [place] [address] 2L [place] [address] documented as of this encounter Visit Diagnoses Diagnosis Encounter for therapeutic drug monitoring Polyarthritis Unspecified polyarthropathy or polyarthritis, site unspecified documented in this encounter Care Teams Corporate Coordinator Relationship Specialty Start Date End Date Jaspreet Pearl MD PCP - General 08/08/18 03/26/24 documented as of this encounter
--- OUTSIDE RECORDS SUMMARY | 2024-11-13 17:46 | XMS_ITS | Encounter Summary ---
Author Organization [facility] Address [address] [facility] [place] [address] Care Team Providers Care Raise Driller Name Role Phone Dayanara Plaza MD Primary Care Provider [phone] Reason for Visit * Reason Comments Refill Request Encounter Details Date Type Department Care Team (Late st Contact Info) Description 04/20/2024 Refill [facility] [address] [place] [address], [place] [address] Perez Cervantes MD [address] [place] [address] [place] [address] Refill Request Social History Tobacco [...] Office Visit [facility] [address] [place] [address], [place] [phone] Perez Cervantes MD [address] [place] [address] [place] [phone] documented as of this encounter Visit Diagnoses Diagnosis Polyarthritis Unspecified polyarthropathy or polyarthritis, site unspecified documented in this encounter Care Teams Raise Driller Relationship Specialty [place] [address] [phone] PCP - General Family Medicine 03/27/24 documented as of this encounter
--- OUTSIDE RECORDS SUMMARY | 2024-11-13 17:46 | XMS_ITS | Encounter Summary ---
Author Organization [facility] Health Address [address] [place] [address] Care Team Providers Care Installer Soft Top Name Role Phone Jaspreet Pearl MD Primary Care Provider + Reason for Visit * Reason Onset Date Comments Follow-up Imm Inj 08/31/2023 Encounter Details Date Type Department Care Team (Late st Contact Info) Description 08/31/2023 2:00 PM CDT Office Visit [facility] - Rheumatology [address] [place] [address], [place] [address] Perez Cervantes MD [address] [place] [address] [place] [address] Encounter for long-term (current) use [...] LS tenderness (General) Unremarkable (Extrem) HNs DIPs/BNs PIPs/SHELTER prominence; 1-3rd MCPs SfT0; 2-5th MTPs Sft); No donta synovitis/enthesitis. MS= bilat (Assess) In medical remission; Monitor for UTI (Plan) Continue same meds with labs q 8 weeks and yearly TB/Hep screening with CXR now. Urine culture today and advise. RTO in 6 months. Discussed with patient. Perez Cervantes MD, FACP, FAAP, MACR Seconds Handler and Pediatric Rheumatology Professor of Internal Medicine,Pediatrics, and Molecular Immunology [facility] documented in this encounter Plan of Treatment Upcoming Encounters Date Type Department Care Team (Late st Contact Info) Description 03/27/2025 1:00 PM CDT Office Visit [facility] - Rheumatology [address] [place] [address], [place] [phone] Perez Cervantes MD [facility] 2L [place] [address] Scheduled Orders Name Type Priority Associated Diagnoses Orde r Schedule [facility] TB-GOLD Lab Routine Encounter for long-term (current) use of medications Ordered: 08/31/2023 documented as of this encounter Procedures Procedure Name Priority Date/Time Associated Diagnosis Comments HEPATITIS C AB W/RFLX TO HCV RNA QN PCR Routine 09/30/2023 7:32 AM TURPENTINE DISTILLER Encounter for long-term (current) use of medications HEPATITIS B SURFACE ANTIBODY Routine 09/30/2023 7:32 AM TURPENTINE DISTILLER Encounter for long-term (current) use of medications HEPATITIS B CORE ANTIBODY TOTAL Routine 09/30/2023 7:32 AM TURPENTINE DISTILLER Encounter for long-term (current) use of medications HEPATITIS B SURFACE ANTIGEN W RFLX CONFIRMATION Routine 09/30/2023 7:32 AM TURPENTINE DISTILLER Encounter for long-term (current) use of medications CULTURE URINE Routine 08/31/2023 3:14 PM CDT Pyuria documented in this encounter Results * HEPATITIS C AB W/RFLX TO HCV RNA QN PCR (09/30/2023 7:32 AM TURPENTINE DISTILLER) Hepatitis C Antibody NON-REACTI VE NON-REACT ROMANA [facility] Comment: HCV antibody was non-reactive. There is no laboratory evidence of HCV infection. In most cases, no further action is required. However, if recent HCV exposure is suspected, a test for HCV RNA (test code 22870) is suggested. For additional information please refer to http://HexAirbot.Battlefy/faq/UKZ86b6 (This link is being provided for informational/ educational purposes only.) Test Performed at: [facility] [place] [facility] [place] ??[address] NAVID SCOTT MD Blood BLOOD SPECIMEN / Unknown 09/30/2023 7:32 AM TURPENTINE DISTILLER 09/30/2023 7:36 AM TURPENTINE DISTILLER Perez Cervantes MD LAB - CHEMISTRY GERA DAVID Performing Organization Address [facility] de Phone Number [address] [address] * HEPATITIS B SURFACE ANTIGEN W RFLX CONFIRMATION (09/30/2023 7:32 AM TURPENTINE DISTILLER) Hepatitis B Virus Surface Antigen NON-REACT ROMANA NON-REACT ROMANA [facility] Comment: For additional information, please refer to http://HexAirbot.Battlefy/faq/LQK976 (This link is being provided for informational/ educational purposes only.) Test Performed at: [facility] [place] [address] [facility] [place] ??[phone] NAVID SCOTT MD Confirmation [facility] Comment: Test Performed at: [facility] [place], [place] ??[address] NAVID SCOTT MD Blood BLOOD SPECIMEN / Unknown 09/30/2023 7:32 AM TURPENTINE DISTILLER 09/30/2023 7:36 AM TURPENTINE DISTILLER Perez Cervantes MD LAB - CHEMISTRY GERA DAVID Performing Organization Address [facility] Co de Phone Number [address] [address] * (ABNORMAL) HEPATITIS B SURFACE ANTIBODY (09/30/2023 7:32 AM TURPENTINE DISTILLER) Hepatitis B Virus Surface Antibody REACTIVE(A ) NON-REACT ROMANA [facility] Comment: Test Performed at: [facility] [address] [place] ??[address] NAVID SCOTT MD Blood BLOOD SPECIMEN / Unknown 09/30/2023 7:32 AM TURPENTINE DISTILLER 09/30/2023 7:36 AM TURPENTINE DISTILLER Perez Cervantes MD LAB - CHEMISTRY GERA DAVID Performing Organization Address [facility] Co de Phone Number [facility] [phone] [place] [address] * HEPATITIS B CORE ANTIBODY TOTAL (09/30/2023 7:32 AM TURPENTINE DISTILLER) Pathologist [facility] Hepatitis B Core Virus Antibody Total NON-REACTI VE NON-REACT ROMANA [facility] Comment: For additional information, please refer to http://education.Battlefy/faq/VWV645 (This link is being provided for informational/ educational purposes only.) Test Performed at: [facility] [address] [place], [place] ??[address] NAVID SCOTT MD Blood BLOOD SPECIMEN / Unknown 09/30/2023 7:32 AM TURPENTINE DISTILLER 09/30/2023 7:36 AM TURPENTINE DISTILLER Perez Cervantes MD LAB - CHEMISTRY GERA DAVID Performing Organization Address [facility] Co de Phone Number [facility] [phone] [place] [address] * CULTURE URINE (08/31/2023 3:14 PM CDT) [facility] Culture Urine No growth (<100 CFU/mL) MELINDA 09/01/2023 10:44 AM CDT [facility] Urine URINE SPECIMEN OBTAINED BY CLEAN CATCH PROCEDURE / Unknown Collection / Unknown 08/31/2023 3:14 PM CDT 08/31/2023 4:15 PM CDT Perez Cervantes MD LAB - MICROBIOLOGY O RDERABLES Performing Organization Address [facility] Co de Phone Number [facility] [address] [place] [address], [facility] [phone] * XR CHEST 2VW (08/31/2023 3:04 PM CDT) Anatomical Region Laterality Modality Chest Radiographic Corin ging 08/31/2023 3:08 PM CDT Narrative 09/01/2023 1:34 AM CDT PROCEDURE: ??XR CHEST 2VW, DATE/TIME OF EXAM: ??08/31/2023 3:04 PM, LOCATION [facility] INDICATION: Z79.899: Encounter for long-term (current) use of medications ADDITIONAL CLINICAL INFORMATION: Ordering Provider Reason For Exam: ??Monitoring Medication COMPARISON: Chest radiograph dated 09/01/2022 FINDINGS/IMPRESSION: There is no focal consolidation, pleural effusion, or pneumothorax. The cardiomediastinal silhouette is normal. The visible bony thorax is intact. > Dictated by Hemanth Vazquez MD (founder and president). Dann Osorio MD have personally reviewed and interpreted this examination/study. > Interpreting Provider: Dann Mccoy MD on 09/01/2023 1:34 AM Procedure Note Dann Mccoy MD - 09/01/2023 PROCEDURE: XR CHEST 2VW, DATE/TIME OF EXAM: 08/31/2023 3:04 PM, LOCATION [facility] INDICATION: Z79.899: Encounter for long-term (current) use of medications ADDITIONAL CLINICAL INFORMATION: Ordering Provider Reason For Exam: Monitoring Medication COMPARISON: Chest radiograph dated 09/01/2022 FINDINGS/IMPRESSION: There is no focal consolidation, pleural effusion, or pneumothorax. The cardiomediastinal silhouette is normal. The visible bony thorax isintact. > Dictated by Hemanth Vazquez MD (founder and president). Dann Osorio MD have personally reviewed and [...] medications documented in this encounter Care Teams Installer Soft Top Relationship Specialty Start Date End Date Jaspreet Pearl MD PCP - General 08/08/18 03/26/24 documented as of this encounter
--- OUTSIDE RECORDS SUMMARY | 2024-11-13 17:46 | XMS_ITS | Encounter Summary ---
Author Organization [facility] Address [address] [facility] [place] [address] Care Team Providers Care Deliverer Merchandise Name Role Phone Jaspreet Pearl MD Primary Care Provider + Encounter Details Date Type Department Care Team (Late Contact Info) Description 09/24/2023 Orders Only [facility] [address] [place] [phone] Perez Cervantes MD [address] [place] [address] 2[place] [address] Encounter for therapeutic drug monitoring; [...] Visit [facility] - Rheumatology [address] [place] [phone] Peerz Cervantes MD [address] [place] [address] 2L [place] [phone] documented as of this encounter Procedures Procedure Name Priority Date/Time Associated Diagnosis Comments C-REACTIVE PROTEIN Routine 09/30/2023 7: 32 AM STUCCO APPLICATOR Encounter for therapeutic drug monitoring Polyarthritis ERYTHROCYTE SEDIMENTATION RATE Routine 09/30/2023 7:32 AM STUCCO APPLICATOR Encounter for therapeutic drug monitoring Polyarthritis CBC W AUTO DIFFERENTIAL Routine 09/30/2023 7:32 AM STUCCO APPLICATOR Encounter for therapeutic drug monitoring Polyarthritis COMPREHENSIVE METABOLIC PANEL Routine 09/30/2023 7:32 AM STUCCO APPLICATOR Encounter for therapeutic drug monitoring Polyarthritis documented in this encounter Results * ERYTHROCYTE SEDIMENTATION RATE (09/30/2023 7:32 AM STUCCO APPLICATOR) Erythrocyte Sedimentation Rate Westergren 25 < OR = 30 mm/h [facility] Comment: Test Performed at: [facility] [place] [address] [place], [place] ??[address] NAVID SCOTT MD Blood BLOOD SPECIMEN / Unknown 09/30/2023 7:32 AM STUCCO APPLICATOR 09/30/2023 7:36 AM STUCCO APPLICATOR Perez Cervantes MD LAB - HEMATOLOGY ORD DANITA Performing Organization Address [facility] Co [place] Phone Number [facility] [address] [place] [address] * C-REACTIVE PROTEIN (09/30/2023 7:32 AM STUCCO APPLICATOR) C-Reactive Protein 3.6 <8.0 mg/L [facility] Comment: Test Performed at: [facility] [address] [facility] [place] ??[phone] NAVID SCOTT MD Blood BLOOD SPECIMEN / Unknown 09/30/2023 7:32 AM STUCCO APPLICATOR 09/30/2023 7:36 AM STUCCO APPLICATOR Perez Cervantes MD LAB - CHEMISTRY GERA DAVID [facility] [address] [place] [address] * (ABNORMAL) COMPREHENSIVE METABOLIC PANEL (09/30/2023 7:32 AM STUCCO APPLICATOR) [facility] Glucose 72 65 - 99 mg/dL [facility] [...] 29 U/L [facility] Comment: Test Performed at: [facility] [address] ??[address] NAVID SCOTT MD Blood BLOOD SPECIMEN / Unknown 09/30/2023 7:32 AM STUCCO APPLICATOR 09/30/2023 7:36 AM STUCCO APPLICATOR Perez Cervantes MD LAB - CHEMISTRY GERA DAVID Performing Organization Address City/[facility]/ZIP Co de Phone Number [facility] [address] [place] [address] * CBC WITH DIFFERENTIAL (09/30/2023 7:32 AM STUCCO APPLICATOR) [facility] White Blood Cell Count 5.6 3.8 - [...] 0.4 % [facility] Comment: Test Performed at: [facility] [address] [place], [place] ??[address] NAVID SCOTT MD Blasts [facility] nRBC [facility] Comments [facility] Comment: Test Performed at: [facility] [address] [place], [place] ??[address] NAVID SCOTT MD Blood BLOOD SPECIMEN / Unknown 09/30/2023 7:32 AM STUCCO APPLICATOR 09/30/2023 7:36 AM STUCCO APPLICATOR Perez Cervantes MD LAB - HEMATOLOGY ORD ERABLES [facility] [address] [place] [address] documented in this encounter Visit Diagnoses Diagnosis Encounter for therapeutic drug monitoring Polyarthritis Unspecified polyarthropathy or polyarthritis, site unspecified documented in this encounter Care Teams Deliverer Merchandise Relationship Specialty Start Date End Date Jaspreet Pearl MD PCP - General 08/08/18 03/26/24 documented as of this encounter
--- OUTSIDE RECORDS SUMMARY | 2024-11-13 17:46 | XMS_ITS | Encounter Summary ---
Author Organization [facility] Health Address [address] [facility] [place] [address] Care Team Providers Care Turret Punch Press Operator Name Role Phone Jaspreet Pearl MD Primary Care Provider + Reason for Visit * Reason Onset Date Comments Medication Prior Auth Request 01/07/2023 En brel - approved Encounter Details Date Type Department Care Team (Late st Contact Info) Description 01/07/2023 Telephone [facility] [address] [place] [address], [place] [address] Perez Cervantes MD [address] [place] [address] [place] [address] Medication Prior Auth Request (Enbrel [...] 01/07/2023 2:55 PM CST Submitted PA via [facility] Portal for Enbrel 50 mg / ml syringes (4 syringe / 28 days). Pt name: Hans Pascual Villeda: [id number] PA Dx: M06.9 Rheumatoid arthritis Current Meds: MTX 20 mg weekly, Nabumetone 1000 mg BID, Enbrel 50 mg / ml PFS weekly (4 PFS / 28 days) Approval received from [employer], Enbrel 50 mg / ml PFS. Approved from 01/25/23 - 01/26/24. ONAL TANKER TRUCK DRIVER documented in this encounter Plan of Treatment Upcoming Encounters Date Type Department Care Team (Late st Contact Info) Description 03/27/2025 1:00 PM CDT Office Visit [facility] - Rheumatology [address] [place] [address], [place] [phone] Perez Cervantes MD [address] [place] [address] [place] [phone] documented as of this encounter Visit Diagnoses Not on filedocumented in this encounter Care Teams Turret Punch Press Operator Relationship Specialty Start Date End Date Jaspreet Pearl MD PCP - General 08/08/18 03/26/24 documented as of this encounter
--- OUTSIDE RECORDS SUMMARY | 2024-11-13 17:46 | XMS_ITS | Encounter Summary ---
Author Organization [facility] Health Address [address] [facility] [place] [address] Care Team Providers Care Boring Machine Operator Helper Name Role Phone Jaspreet Pearl MD Primary Care Provider + Reason for Visit * Reason Onset Date Comments Medical Clearance 09/06/2023 Encounter Details Date Type Department Care Team (Late st Contact Info) Description 09/06/2023 Telephone [facility] - Centralized Scheduling [address] [place] [phone] Perez Cervantes MD [facility] [place] [address] Medical Clearance Social History Tobacco [...] Cervantes NICK notes faxed with confirmation to [phone]. * Telephone Encounter - Lashae Castelan RN - 09/06/2023 12:52 PM CDT Images from the original note were not included. Bharti Perera Clinical Staff 1 minute ago (12:49 PM) RA MG FROM DR JURADO OFFICE, PT PODIATRICS AND SHE IS NEEDING A CLEARANCE LETTER AND CLINICAL NOTES FROM PT'S LAST APPT WITH DR CERVANTES. IF THEY CAN BE FAXED OVER TO [phone] WITH ATTENTION TO HARITHA. PLEASE ADVISE [phone] EX:[id number], IS THE TELEPHONE TO REACH HARITHA Pt is currently scheduled 09/10/23 at [facility] for Endoscopic Plantar Fascia Release Right Foot. Dr. Riley Thompson's office requesting rheumatology clearance letter, please advise. documented in this encounter Plan of Treatment Upcoming Encounters Date Type Department Care Team (Late st Contact Info) Description 03/27/2025 1:00 PM CDT Office Visit [facility] - Rheumatology [address] [place] [address], [place] [phone] Perez Cervantes MD [address] [place] [address] 2[address] [place] [address] documented as of this encounter Visit Diagnoses Not on filedocumented in this encounter Care Teams Boring Machine Operator Helper Relationship Specialty Start Date End Date Jaspreet Pearl MD PCP - General 08/08/18 03/26/24 documented as of this encounter
--- OUTSIDE RECORDS SUMMARY | 2024-11-13 17:46 | XMS_ITS | Encounter Summary ---
Author Organization [facility] Address [address] [facility] [place] [address] Care Team Providers Care College Recruiter Name Role Phone Jaspreet Pearl MD Primary Care Provider + Encounter Details Date Type Department Care Team (Late st Contact Info) Description 02/14/2024 Orders Only [facility] - Rheumatology [address] [place] [phone] Perez Cervantes MD [address] [place] [address] [address] [place] [address] Social History Tobacco Use Types [...] Visit [facility] - Rheumatology [address] [place] [phone] Perez Cervantes MD [address] [place] [address] 2[address] [place] [phone] documented as of this encounter Procedures Procedure [...] Comment: REPORT COMMENT: FASTING:YES Test Performed at: [facility] [address] ??[phone] NAVID SCOTT MD 02/14/2024 7:33 AM CDT 02/14/2024 7:33 AM CDT Perez Cervantes MD LAB - CHEMISTRY GERA DAVID [facility] Organization Address City/State/ZIP Co de Phone Number [address] [address] * CULTURE URINE REFLEXED III (02/14/2024 7:33 AM CDT) Reflexive Urine Culture See Below [facility] Comment: NO CULTURE INDICATED Test Performed at: [facility] ??[phone] NAVID SCOTT MD 02/14/2024 7:33 AM CDT 02/14/2024 7:33 AM CDT Perez Cervantes MD LAB - MICROBIOLOGY O RDERABLES Performing Organization Address [facility] Co de Phone Number [address] [address] * URINALYSIS W/MICROSCOPIC REFLEX TO CULTURE (02/14/2024 7:33 AM CDT) Color UA YELLOW YELLOW [facility] Appearance CLEAR CLEAR [facility] Specific [place] UA 1.020 1.001 - 1.035 [facility] pH [...] elements seen were reported. Test Performed at: [facility] ??[address] NAVID SCOTT MD 02/14/2024 7:33 AM CDT 02/14/2024 7:33 AM CDT Perez Cervantes MD LAB - URINALYSIS ORD ERABLES Performing Organization Address [facility] Co de Phone Number [address] [address] * (ABNORMAL) CBC WITH DIFFERENTIAL (02/14/2024 7:33 [...] 0.4 % [facility] Comment: Test Performed at: [facility] [place], [place] ??[address] NAVID SCOTT MD Blasts [facility] nRBC [facility] Comments [facility] Comment: Test Performed at: [facility] [address] [place], [place] ??[address] NAVID SCOTT MD 02/14/2024 7:33 AM CDT 02/14/2024 7:33 AM CDT Perez Cervantes MD LAB - HEMATOLOGY ORD ERABLES Performing Organization Address [facility] de Phone Number [facility] [address] [place] [address] * ERYTHROCYTE SEDIMENTATION RATE (02/14/2024 7:33 AM CDT) Erythrocyte Sedimentation Rate Westergren 9 < OR = 30 mm/h [facility] Comment: Test Performed at: [facility] [place], [place] ??[address] NAVID SCOTT MD 02/14/2024 7:33 AM CDT 02/14/2024 7:33 AM CDT Perez Cervantes MD LAB - HEMATOLOGY ORD ERABLES Performing Organization Address [facility] Co de Phone Number [facility] [address] [place] [address] * COMPREHENSIVE METABOLIC PANEL (02/14/2024 7:33 AM [...] 29 U/L [facility] Comment: Test Performed at: [facility] [address] ??[phone] NAVID SCOTT MD 02/14/2024 7:33 AM CDT 02/14/2024 7:33 AM CDT Perez Cervantes MD LAB - CHEMISTRY GERA DAVID [facility] [address] [place] [address] documented in this encounter Visit Diagnoses Not on filedocumented in this encounter Care Teams College Recruiter Relationship Specialty Start Date End Date Jaspreet Pearl MD PCP - General 08/08/18 03/26/24 documented as of this encounter
--- OUTSIDE RECORDS SUMMARY | 2024-11-13 17:46 | XMS_ITS | Encounter Summary ---
Author Organization [facility] Health Address [address] [facility] [place] [address] Care Team Providers Care Short Range [employer] Name Role Phone Dayanara Plaza MD Primary Care Provider [phone] Reason for Visit * Reason Comments Follow-up Encounter Details Date Type Department Care Team (Latest Contact Info) Description 03/27/2024 1:40 PM CDT Office Visit [facility] - Rheumatology [address] [place] [address], [place] [address] Perez Cervantes MD [address] [place] [address] [place] [address] Polyarthritis (Primary Dx) Social History [...] No adenopathy/thyromegaly/tenderness (General) Unremarkable (Extrem) HNs DIPs/BNs PIPs/MCFP prominence; 1-3rd MCPs SfT0' 2-5th MTPs SfT0; No donta synovitis/enthesitis. 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 Today, Xray hands/feet. Advise if any change in parameters. RTO in 6 months. Discussed with patient and her . Perez Cervantes MD, FACP, FAAP, MACR Cloth Bleaching Range Back Tender and Pediatric Rheumatology Professor of Internal Medicine,Pediatrics, and Molecular Immunology [facility] documented in this encounter Plan of Treatment Upcoming Encounters Date Type Department Care Team (Late st Contact Info) Description 03/27/2025 1:00 PM CDT Office Visit [facility] - Rheumatology [address] [place] [address], [place] [phone] Perez Cervantes MD [address] [place] [address] [place] [address] documented as of this encounter Results * XR HAND RIGHT 2VW (03/27/2024 2:31 PM CDT) Anatomical Region Laterality Modality Wrist / Hand Radiographic Corin ging 03/27/2024 2:44 PM CDT Impressions 03/27/2024 2:57 PM CDT IMPRESSION: No significant arthritis on the above studies. Report dictated by Td Burton MD, (vice president for instruction). I, Dinh Toledo MD have personally reviewed and interpreted this examination/study. > Interpreting Provider: Dinh Toledo MD on 03/27/2024 2:57 PM Narrative 03/27/2024 2:57 PM CDT PROCEDURE: ??XR HAND RIGHT 2VW, XR HAND LEFT 2VW, XR FOOT LEFT 2VW, XR FOOT RIGHT 2VW, DATE/TIME OF EXAM: ??03/27/2024 2:31 PM, LOCATION ??[facility] INDICATION: M13.0: Polyarthritis COMPARISON: Right and [...] DATE/TIME OF EXAM: 03/27/2024 2:31 PM, LOCATION [facility] INDICATION: M13.0: Polyarthritis COMPARISON: Right and [...] Report dictated by Td Burton MD, MD (vice president for instruction). Dinh Osorio MD have personally reviewed and [...] Report dictated by Td Burton MD, MD (vice president for instruction). Dinh Osorio MD have personally reviewed and interpreted this examination/study. > Interpreting Provider: Dinh Toledo MD on 03/27/2024 2:57 PM Narrative 03/27/2024 2:57 PM CDT PROCEDURE: ??XR HAND RIGHT 2VW, XR HAND LEFT 2VW, XR FOOT LEFT 2VW, XR FOOT RIGHT 2VW, DATE/TIME OF EXAM: ??03/27/2024 2:31 PM, LOCATION ??[facility] INDICATION: M13.0: Polyarthritis COMPARISON: Right and [...] DATE/TIME OF EXAM: 03/27/2024 2:31 PM, LOCATION [facility] INDICATION: M13.0: Polyarthritis COMPARISON: Right and [...] Report dictated by Td Burton MD, MD (vice president for instruction). Dinh Osorio MD have personally reviewed and [...] Report dictated by Td Burton MD, MD (vice president for instruction). Dinh Osorio MD have personally reviewed and interpreted this examination/study. > Interpreting Provider: Dinh Toledo MD on 03/27/2024 2:57 PM Narrative 03/27/2024 2:57 PM CDT PROCEDURE: ??XR HAND RIGHT 2VW, XR HAND LEFT 2VW, XR FOOT LEFT 2VW, XR FOOT RIGHT 2VW, DATE/TIME OF EXAM: ??03/27/2024 2:31 PM, LOCATION ??[facility] INDICATION: M13.0: Polyarthritis COMPARISON: Right and [...] DATE/TIME OF EXAM: 03/27/2024 2:31 PM, LOCATION [facility] INDICATION: M13.0: Polyarthritis COMPARISON: Right and [...] Report dictated by Td Burton MD, MD (vice president for instruction). I, Dinh Toledo MD have personally reviewed [...] Report dictated by Td Burton MD, MD (vice president for instruction). I, Dinh Toledo MD have personally reviewed and interpreted this examination/study. > Interpreting Provider: Dinh Toledo MD on 03/27/2024 2:57 PM Narrative 03/27/2024 2:57 PM CDT PROCEDURE: ??XR HAND RIGHT 2VW, XR HAND LEFT 2VW, XR FOOT LEFT 2VW, XR FOOT RIGHT 2VW, DATE/TIME OF EXAM: ??03/27/2024 2:31 PM, LOCATION ??[facility] INDICATION: M13.0: Polyarthritis COMPARISON: Right and [...] DATE/TIME OF EXAM: 03/27/2024 2:31 PM, LOCATION [facility] INDICATION: M13.0: Polyarthritis COMPARISON: Right and [...] studies. Report dictated by Td Burton MD, (vice president for instruction). I, Dinh Toledo MD have personally reviewed and interpreted this examination/study. > Interpreting Provider: Dinh Toledo MD on 03/27/2024 2:57 PM Perez Cervantes MD DIAGNOSTIC IMAGING [facility] documented in this encounter Visit Diagnoses Diagnosis Polyarthritis- Primary Unspecified polyarthropathy or polyarthritis, site unspecified Polyarthritis Unspecified polyarthropathy or polyarthritis, site unspecified documented in this encounter Care Teams Short [employer] Relationship Specialty [place] [id number] [address] PCP - General Family Medicine 03/27/24 documented as of this encounter
--- OUTSIDE RECORDS SUMMARY | 2024-11-13 17:46 | XMS_ITS | Encounter Summary ---
Author Organization [facility] Address [address] [facility] [place] [address] Care Team Providers Care Screw Machine Operator Single Spindle Name Role Phone Dayanara Plaza MD Primary Care Provider [phone] Encounter Details Date Type Department Care Team (Late Contact Info) Description 07/07/2024 Orders Only [facility] - Rheumatology [address] [place] [phone] Perez Cervantes MD [address] [place] [address] [place] [address] Polyarthritis; Encounter for therapeutic drug [...] Visit [facility]ology [address] [place] [phone] Perez Cervantes MD [address] [place] [address] documented as of this encounter Visit Diagnoses Diagnosis Polyarthritis Unspecified polyarthropathy or polyarthritis, site unspecified Encounter for therapeutic drug monitoring Encounter for long-term (current) use of medications Encounter for long-term (current) use of other medications documented in this encounter Care Teams Screw Machine Operator Single Spindle Relationship Specialty [place] [address] [address] PCP - General Family Medicine 03/27/24 documented as of this encounter
--- OUTSIDE RECORDS SUMMARY | 2024-11-13 17:46 | XMS_ITS | Encounter Summary ---
Author Organization [facility] Health Address [address] [facility] [place] [address] Care Team Providers Care Panman Name Role Phone Jaspreet Pearl MD Primary Care Provider + Reason for Visit * Reason Comments Refill Request Encounter Details Date Type Department Care Team (Late st Contact Info) Description 01/03/2023 Refill [facility] [address] [place] [address], [place] [address] Perez Cervatnes MD [address] [place] [address] [place] [address] Refill Request Social History Tobacco [...] Sig: TAKE 2 TABLETS TWICE A DAY RINTENDENT TRANSMISSION documented in this encounter Plan of Treatment Upcoming Encounters Date Type Department Care Team (Late st Contact Info) Description 03/27/2025 1:00 PM CDT Office Visit [facility] - Rheumatology [address] [place] [address], [place] [address] Perez Cervantes MD [address] [place] [address] [place] [address] documented as of this encounter Visit Diagnoses Not on filedocumented in this encounter Care Teams Panman Relationship Specialty Start Date End Date Jaspreet Pearl MD PCP - General 08/08/18 03/26/24 documented as of this encounter
--- OUTSIDE RECORDS SUMMARY | 2024-11-13 17:46 | XMS_ITS | Encounter Summary ---
Author Organization [facility] Address [address] [facility] [place] [address] Care Team Providers Care Galley Boy Name Role Phone Jaspreet Pearl MD Primary Care Provider + Encounter Details Date Type Department Care Team (Late Contact Info) Description 07/27/2022 Orders Only [facility] [address] [place] [phone] Perez Cervantes MD [address] [place] [address] [address] [place] [address] Social History Tobacco Use Types [...] Office Visit [facility] - Rheumatology [address] [place] [phone] Perez Cervantes MD [address] [place] [address] [address] [place] [phone] documented as of this encounter Procedures Procedure [...] [facility] Comment: ??CULTURE, URINE, ROUTINE ?Micro Number: ?[id number] ??Test Status: ? Final ??Specimen Source: ?? Urine ??Specimen Quality: ??Adequate ??Result: ?Less than 10,000 CFU/mL of single Gram negative ? organism isolated. No further testing will be ? performed. If clinically indicated, recollection ? using a method to minimize contamination, with ? prompt transfer to Urine Culture Transport Tube, ? is recommended. Test Performed at: [facility] ??[address] NAVID SCOTT MD 07/27/2022 7:13 AM CDT 07/27/2022 7:13 AM CDT Perez Cervantes MD LAB - MICROBIOLOGY O JOEY Performing Organization Address [facility] de Phone Number [address] [address] * C-REACTIVE PROTEIN (07/27/2022 7:13 AM CDT) C-Reactive Protein 4.7 <8.0 mg/L [facility] Comment: Test Performed at: [facility] [address] ??[address] ASPEN HOLLINGSWORTH DO,MPH 07/27/2022 7:13 AM CDT 07/27/2022 7:13 AM CDT Perez Cervantes MD LAB - CHEMISTRY GERA DAVID Performing Organization Address [facility] de Phone Number [address] [address] * CULTURE URINE REFLEXED II (07/27/2022 7:13 AM CDT) Pathologist [facility] Reflexive Urine Culture See Below [facility] Comment: CULTURE INDICATED - RESULTS TO FOLLOW Test Performed at: [facility] ??[address] NAVID SCOTT MD 07/27/2022 7:13 AM CDT 07/27/2022 7:13 AM CDT Perez Cervantes MD LAB - MICROBIOLOGY O OJEY Performing Organization Address [facility] de Phone Number [address] [address] * (ABNORMAL) URINALYSIS W/MICROSCOPIC REFLEX TO CULTURE (07/27/2022 7:13 AM CDT) Color UA YELLOW YELLOW [facility] Appearance CLEAR CLEAR [facility] Specific [place] UA 1.025 1.001 - 1.035 [facility] pH [...] SEEN /LPF [facility] Comment: Test Performed at: [facility] ??[address] NAVID SCOTT MD 07/27/2022 7:13 AM CDT 07/27/2022 7:13 AM CDT Perez Cervantes MD LAB - URINALYSIS ORD ERABLES [address] [address] * CBC WITH DIFFERENTIAL (07/27/2022 7:13 AM [...] 0.4 % [facility] Comment: Test Performed at: [facility] [address] [address] [place], [place] ??[address] ASPEN HOLLINGSWORTH DO,MPH Blasts [facility] nR [facility] Comments [facility] Comment: Test Performed at: [facility] [place] [address] [place], [place] ??[address] ASPEN HOLLINGSWORTH DO,MPH 07/27/2022 7:13 AM CDT 07/27/2022 7:13 AM CDT Perez Cervantes MD LAB - HEMATOLOGY ORD ERABLES Performing Organization Address City/[facility]/ZIP Co de Phone Number [facility] [address] [place] [address] * ERYTHROCYTE SEDIMENTATION RATE (07/27/2022 7:13 AM CDT) Erythrocyte Sedimentation Rate Westergren 11 < OR = 30 mm/h [facility] Comment: Test Performed at: [facility] [place] [id number] [place], [place] ??[phone] ASPEN HOLLINGSWORTH DO,MPH 07/27/2022 7:13 AM CDT 07/27/2022 7:13 AM CDT Perez Cervantes MD LAB - HEMATOLOGY ORD ERABLES Performing Organization Address City/[facility] Co de Phone Number [facility] [address] [place] [address] * COMPREHENSIVE METABOLIC PANEL (07/27/2022 7:13 AM [...] 29 U/L [facility] Comment: Test Performed at: [facility] [address] [place] [address] ??[phone] ASPEN HOLLINGSWORTH DO,MPH 07/27/2022 7:13 AM CDT 07/27/2022 7:13 AM CDT Perez Cervantes MD LAB - CHEMISTRY GERA DAVID [facility] [address] [place] [phone] documented in this encounter Visit Diagnoses Not on filedocumented in this encounter Care Teams Galley Boy Relationship Specialty Start Date End Date Jaspreet Pearl MD PCP - General 08/08/18 03/26/24 documented as of this encounter
--- OUTSIDE RECORDS SUMMARY | 2024-11-13 17:46 | XMS_ITS | Encounter Summary ---
Author Organization [facility] Address [address] [facility] [place] [address] Care Team Providers Care Communications Officer Name Role Phone Jaspreet Pearl MD Primary Care Provider + Encounter Details Date Type Department Care Team (Late Contact Info) Description 04/17/2022 Orders Only [facility] [address] [place] [phone] Perez Cervantes MD [address] [place] [address] 2[place] [address] Polyarthritis ; Encounter for therapeutic [...] Visit [facility] - Rhe[facility]ology [address] [place] [phone] Perez Cervantes MD [address] [place] [address] [address] [place] [address] documented as of this encounter Visit Diagnoses Diagnosis Polyarthritis- Primary Unspecified polyarthropathy or polyarthritis, site unspecified Encounter for therapeutic drug monitoring documented in this encounter Care Teams Communications Officer Relationship Specialty Start Date End Date Jaspreet Pearl MD PCP - General 08/08/18 03/26/24 documented as of this encounter
--- OUTSIDE RECORDS SUMMARY | 2024-11-13 17:46 | XMS_ITS | Encounter Summary ---
Author Organization [facility] Address [address] [facility] [place] [address] Care Team Providers Care Software Developer Intern Name Role Phone Dayanara Plaza MD Primary Care Provider [phone] Encounter Details Date Type Department Care Team (Late st Contact Info) Description 07/04/2024 Orders Only [facility] - Rheumatology [address] [place] [phone] Perez Cervantes MD [address] [place] [address] 2[place] [address] Social History Tobacco Use Types [...] Visit [facility] - Rheumatology [address] [place] [phone] Perez Cervantes MD [address] [place] [address] [address] DIV [place] [phone] documented as of this encounter Procedures Procedure [...] [facility] Comment: ??CULTURE, URINE, ROUTINE ?Micro Number: ?[id number] ??Test Status: ? Final ??Specimen Source: ?? Urine ??Specimen Quality: ??Adequate ??Result: ?Mixed genital erin isolated. These superficial ? bacteria are not indicative of a urinary tract ? infection. No further organism identification is ? warranted on this specimen. If clinically ? indicated, recollect clean-catch, mid-stream ? urine and transfer immediately to Urine Culture ? Transport Tube. REPORT COMMENT: FASTING:YES Test Performed at: [facility] [address] ??[phone] NAVID SCOTT MD 07/04/2024 7:36 AM CDT 07/04/2024 7:37 AM CDT Perez Cervantes MD LAB - MICROBIOLOGY O JOEY Performing Organization Address [facility] Co de Phone Number [address] [address] * C-REACTIVE PROTEIN (07/04/2024 7:36 AM CDT) C-Reactive Protein <3.0 <8.0 mg/L [facility] Comment: Test Performed at: [facility] [address] ??[address] NAVID SCOTT MD 07/04/2024 7:36 AM CDT 07/04/2024 7:37 AM CDT Perez Cervantes MD LAB - CHEMISTRY ORDSagar DAVID Performing Organization Address [facility] de Phone Number [address] [address] * CULTURE URINE REFLEXED II (07/04/2024 7:36 AM CDT) Reflexive Urine Culture See Below [facility] Comment: CULTURE INDICATED - RESULTS TO FOLLOW Test Performed at: [facility] [address] ??[phone] NAVID SCOTT MD 07/04/2024 7:36 AM CDT 07/04/2024 7:37 AM CDT Perez Cervantes MD LAB - MICROBIOLOGY O JOEY Performing Organization Address [facility] de Phone Number [address] [address] * (ABNORMAL) URINALYSIS W/MICROSCOPIC REFLEX TO CULTURE (07/04/2024 7:36 AM CDT) Color UA DARK YELLOW YELLOW [facility] Appearance CLOUDY(A) CLEAR [facility] Specific [place] UA 1.024 1.001 - 1.035 [facility] pH [...] elements seen were reported. Test Performed at: [facility] [address] ??[phone] NAVID SCOTT MD 07/04/2024 7:36 AM CDT 07/04/2024 7:37 AM CDT Perez Cervantes MD LAB - URINALYSIS ORD ERABLES [address] [address] * (ABNORMAL) CBC WITH DIFFERENTIAL (07/04/2024 7:36 [...] 0.3 % [facility] Comment: Test Performed at: [facility] Support[address] ??[phone] NAVID SCOTT MD Blasts [facility] nRBC [facility] Comments [facility] Comment: Test Performed at: [facility] [address] [employer] [address] ??[address] NAVID SCOTT MD 07/04/2024 7:36 AM CDT 07/04/2024 7:37 AM CDT Perez Cervantes MD LAB - HEMATOLOGY ORD ERABLES Performing Organization Address [facility] de Phone Number [facility] [address] [place] [address] * ERYTHROCYTE SEDIMENTATION RATE (07/04/2024 7:36 AM CDT) Pathologist [facility] Erythrocyte Sedimentation Rate Westergren 14 < OR = 30 mm/h [facility] Comment: Test Performed at: [facility] [address] [employer] [address] ??[phone] NAVID SCOTT MD 07/04/2024 7:36 AM CDT 07/04/2024 7:37 AM CDT Perez Cervantes MD LAB - HEMATOLOGY ORD ERABLES Performing Organization Address [facility] de Phone Number [facility] [address] [place] [address] * COMPREHENSIVE METABOLIC PANEL (07/04/2024 7:36 AM CDT) Pathologist [facility] Glucose 89 65 - 99 mg/dL [facility] [...] 29 U/L [facility] Comment: Test Performed at: [employer] [address] [place] [address] ??[phone] NAVID SCOTT MD 07/04/2024 7:36 AM CDT 07/04/2024 7:37 AM CDT Perez Cervantes MD LAB - CHEMISTRY GERA DAVID [facility] Organization Address City/State/ZIP Co de Phone Number [facility] [address] [place] [address] documented in this encounter Visit Diagnoses Not on filedocumented in this encounter Care Teams Software Developer Intern Relationship Specialty [place] [address] [address] PCP - General Family Medicine 03/27/24 documented as of this encounter
--- OUTSIDE RECORDS SUMMARY | 2024-11-13 17:46 | XMS_ITS | Encounter Summary ---
Author Organization [facility] Health Address [address] [facility] [place] [address] Care Team Providers Care Tire Center Supervisor Name Role Phone Jaspreet Pearl MD Primary Care Provider + Reason for Visit * Reason Comments Refill Request Encounter Details Date Type Department Care Team (Late st Contact Info) Description 03/30/2022 Refill [facility] [address] [place] [address], [place] [address] Perez Cervantes MD [address] [place] [address] [place] [address] Refill Request Social History Tobacco [...] Office Visit [facility] [address] [place] [address], [facility] [place] [phone] Perez Cervantes MD [address] [place] [address] [place] [phone] documented as of this encounter Visit Diagnoses Diagnosis Polyarthritis Unspecified polyarthropathy or polyarthritis, site unspecified documented in this encounter Care Teams Tire Center Supervisor Relationship Specialty Start Date End Date Jaspreet Pearl MD PCP - General 08/08/18 03/26/24 documented as of this encounter
--- OUTSIDE RECORDS SUMMARY | 2024-11-13 17:46 | XMS_ITS | Encounter Summary ---
Author Organization [facility] Address [address] [facility] [place] [address] Care Team Providers Care Customer Sales Representative Name Role Phone Jaspreet Pearl MD Primary Care Provider + Encounter Details Date Type Department Care Team (Late Contact Info) Description 12/20/2023 Orders Only [facility] [address] [place] [phone] Perez Cervantes MD [address] [place] [address] 2L [place] [address] Social History Tobacco Use Types [...] Visit [facility] - Rheumatology [address] [place] [address] [phone] Perez Cervantes MD [address] [place] [address] 2L [place] [phone] documented as of this encounter Procedures Procedure Name Priority Date/Time Associated Diagnosis Comments CULTURE URINE REFLEXED III 12/20/2023 7:23 AM PLASTERER FOREMAN URINALYSIS W/MICROSCOPIC REFLEX TO CULTURE 12/20/2023 7:23 AM PLASTERER FOREMAN C-REACTIVE PROTEIN 12/20/2023 7: 23 AM PLASTERER FOREMAN ERYTHROCYTE SEDIMENTATION RATE 12/20/2023 7:23 AM PLASTERER FOREMAN CBC W AUTO DIFFERENTIAL 12/20/2023 7:23 AM PLASTERER FOREMAN COMPREHENSIVE METABOLIC PANEL 12/20/2023 7:23 AM PLASTERER FOREMAN documented in this encounter Results * C-REACTIVE PROTEIN (12/20/2023 7:23 AM PLASTERER FOREMAN) C-Reactive Protein 4.7 <8.0 mg/L [facility] Comment: Test Performed at: [employer] [address] ??[phone] NAVID SCOTT MD 12/20/2023 7:23 AM PLASTERER FOREMAN 12/20/2023 7:24 AM PLASTERER FOREMAN Perez Cervantes MD LAB - CHEMISTRY GERA DAVID Performing Organization Address [facility] Co de Phone Number [place] [phone] [place] [address] * CULTURE URINE REFLEXED III (12/20/2023 7:23 AM PLASTERER FOREMAN) Reflexive Urine Culture See Below [facility] Comment: NO CULTURE INDICATED Test Performed at: [employer] ??[phone] NAVID SCOTT MD 12/20/2023 7:23 AM PLASTERER FOREMAN 12/20/2023 7:24 AM PLASTERER FOREMAN Perez Cervantes MD LAB - MICROBIOLOGY O RDERABLES Performing Organization Address [facility]/ZIP Co de Phone Number [address] [address] * (ABNORMAL) URINALYSIS W/MICROSCOPIC REFLEX TO CULTURE (12/20/2023 7:23 AM PLASTERER FOREMAN) Color UA DARK YELLOW YELLOW [facility] Appearance CLOUDY(A) CLEAR [facility] Specific [place] UA 1.024 1.001 - 1.035 [facility] pH [...] elements seen were reported. Test Performed at: [employer] ??[phone] NAVID SCOTT MD 12/20/2023 7:23 AM PLASTERER FOREMAN 12/20/2023 7:24 AM PLASTERER FOREMAN Perez Cervantes MD LAB - URINALYSIS ORD ERABLES Performing Organization Address [facility] Co de Phone Number [address] [address] * (ABNORMAL) CBC WITH DIFFERENTIAL (12/20/2023 7:23 AM PLASTERER FOREMAN) White Blood Cell Count 3.8 3.8 - [...] 0.5 % [facility] Comment: Test Performed at: [employer] [place], [place] ??[address] NAVID SCOTT MD Blasts [facility] nRBC [facility] Comments [facility] Comment: Test Performed at: [facility] [place] ??[address] NAVID SCOTT MD 12/20/2023 7:23 AM PLASTERER FOREMAN 12/20/2023 7:24 AM PLASTERER FOREMAN Perez Cervantes MD LAB - HEMATOLOGY ORD ERABLES Performing Organization Address City/[facility]/ZIP Co de Phone Number [facility] [address] [place] [address] * ERYTHROCYTE SEDIMENTATION RATE (12/20/2023 7:23 AM PLASTERER FOREMAN) Erythrocyte Sedimentation Rate Westergren 17 < OR = 30 mm/h [facility] Comment: Test Performed at: [employer] [address] [place], [place] ??[phone] NAVID SCOTT MD 12/20/2023 7:23 AM PLASTERER FOREMAN 12/20/2023 7:24 AM PLASTERER FOREMAN Perez Cervantes MD LAB - HEMATOLOGY ORD ERABLES Performing Organization Address City/[facility]/ZIP Co de Phone Number [facility] [address] [place] [address] * COMPREHENSIVE METABOLIC PANEL (12/20/2023 7:23 AM PLASTERER FOREMAN) Glucose 77 65 - 99 mg/dL [facility] [...] 29 U/L [facility] Comment: Test Performed at: [employer] [address] ??[phone] NAVID SCOTT MD 12/20/2023 7:23 AM PLASTERER FOREMAN 12/20/2023 7:24 AM PLASTERER FOREMAN Perez Cervantes MD LAB - CHEMISTRY GERA DAVID [facility] [address] [place] [address] documented in this encounter Visit Diagnoses Not on filedocumented in this encounter Care Teams Customer Sales Representative Relationship Specialty Start Date End Date Jaspreet Pearl MD PCP - General 08/08/18 03/26/24 documented as of this encounter
--- OUTSIDE RECORDS SUMMARY | 2024-11-13 17:46 | XMS_ITS | Encounter Summary ---
Author Organization [facility] Address [address] [facility] [place] [address] Care Team Providers Care Private Tutors And Teachers Name Role Phone Jaspreet Pearl MD Primary Care Provider + Encounter Details Date Type Department Care Team (Late Contact Info) Description 09/30/2023 Orders Only [facility] [address] [place] [phone] Perez Cervantes MD [address] [place] [address] 2[place] [address] Social History Tobacco Use Types [...] Visit [facility] [address] [place] [phone] Perez Cervantes MD [address] [place] [address] 2L [place] [phone] documented as of this encounter Procedures Procedure Name Priority Date/Time Associated Diagnosis Comments QUANTIFERON-TB GOLD PLUS 1-TUBE 09/30/2023 7:32 AM CARPET JOURNEYMAN URINALYSIS W/MICROSCOPIC NO CULTURE 09/30/2023 7:32 AM CARPET JOURNEYMAN CULTURE URINE 09/30/2023 7:32 AM CARPET JOURNEYMAN documented in this encounter Results * CULTURE URINE (09/30/2023 7:32 AM CARPET JOURNEYMAN) Pathologist [facility] Culture [facility] Comment: ??CULTURE, URINE, ROUTINE ?Micro Number: ?[id number] ??Test Status: ? Final ??Specimen Source: ?? Urine ??Specimen Quality: ??Adequate ??Result: ?No Growth Test Performed at: [employer] ??[phone] NAVID SCOTT MD 09/30/2023 7:32 AM CARPET JOURNEYMAN 09/30/2023 7:36 AM CARPET JOURNEYMAN Perez Cervantes MD LAB - MICROBIOLOGY O RDERABLES [address] [address] * QUANTIFERON-TB GOLD PLUS 1-TUBE (09/30/2023 7:32 AM CARPET JOURNEYMAN) Pathologist [facility] QuantiFERON TB Gold Plus NEGATIVE NEGATIVE [facility] [...] T-lymphocytes. For additional information, please refer to https://[email or web address].JustPark/faq/PEJ045 (This link is being provided for informational/ educational purposes only.) Test Performed at: [employer] [address] [place], [place] ??[address] NAVID SCOTT MD 09/30/2023 7:32 AM CARPET JOURNEYMAN 09/30/2023 7:36 AM CARPET JOURNEYMAN Perez Cervantes MD LAB - CHEMISTRY ORDE RABDEMARCO Performing Organization Address [facility] de Phone Number [employer] [address] [place] [address] * URINALYSIS W/MICROSCOPIC NO CULTURE (09/30/2023 7:32 AM CARPET JOURNEYMAN) Color UA YELLOW YELLOW [facility] Appearance CLEAR CLEAR [facility] Specific [place] UA 1.015 1.001 - 1.035 [facility] pH [...] SEEN /LPF [facility] Comment: Test Performed at: [employer] [address] [place], [place] ??[address] NAVID SCOTT MD 09/30/2023 7:32 AM CARPET JOURNEYMAN 09/30/2023 7:36 AM CARPET JOURNEYMAN Perez Cervantes MD LAB - URINALYSIS ORD ERABLES Performing Organization Address [facility] Co de Phone Number [employer] [address] [place] [address] documented in this encounter Visit Diagnoses Not on filedocumented in this encounter Care Teams Private Tutors And Teachers Relationship Specialty Start Date End Date Jaspreet Pearl MD PCP - General 08/08/18 03/26/24 documented as of this encounter
--- OUTSIDE RECORDS SUMMARY | 2024-11-13 17:46 | XMS_ITS | Encounter Summary ---
Author Organization [facility] Address [address] [place] [address] Care Team Providers Care Commercial Lines Underwriter Name Role Phone Jaspreet Pearl MD Primary [...] Visit [facility] - Rheumat[facility] [address] [place] [address], [place] [phone] Perez Cervantes MD [address] [place] [address] 2L [place] [phone] documented as of this encounter Visit Diagnoses Not on filedocumented in this encounter Care Teams Commercial Lines Underwriter Relationship Specialty Start Date End Date Jaspreet Pearl MD [phone] (work) PCP - General 08/08/18 03/26/24 documented as of this encounter
--- OUTSIDE RECORDS SUMMARY | 2024-11-13 17:46 | XMS_ITS | Encounter Summary ---
Author Organization [facility] Address [address] [place] [place] [address] Care Team Providers Care Lead Consultant Name Role Phone Dayanara Plaza MD Primary Care Provider [phone] Encounter Details Date Type Department Care Team (Late Contact Info) Description 05/15/2024 Orders Only [facility] - Rheumatology [address] [place] [phone] Perez Cervantes MD [address] [place] [address] [place] [address] Polyarthritis ; Encounter for therapeutic [...] Office Visit [facility] [address] [place] [address] [phone] Perez Cervantes MD [address] [place] [address] Scheduled Orders Name Type Priority Associated Diagnoses [...] medications documented in this encounter Care Teams Lead Consultant Relationship Specialty [place] [address] [phone] PCP - General Family Medicine 03/27/24 documented as of this encounter
--- OUTSIDE RECORDS SUMMARY | 2024-11-13 17:46 | XMS_ITS | Encounter Summary ---
Author Organization [facility] Address [address] [facility] [place] [address] Care Team Providers Care Straddle Truck Operator Name Role Phone Dayanara Plaza MD Primary Care Provider [phone] Encounter Details Date Type Department Care Team (Latest Contact Info) Description 03/27/2024 2:24 PM CDT - 03/27/2024 11:59 PM CDT Hospital Encounter [facility] DIAGNOSTIC RAD OP [address] [place] [address] Perez Cervantes MD [address] [place] [address] Discharge Disposition: Home or Self [...] End Date Azelastine HCl 137 MCG/SPRAY SOLN Searchlight 2 sprays into the nose 2 times [...] [facility] [address] [place] [address], [facility] [place] [phone] Perez Cervantes MD [address] [place] [address] [place] [phone] documented as of this encounter Procedures Procedure [...] Report dictated by Td Burton MD, MD (residential tech). I, Dinh Toledo MD have personally reviewed and interpreted this examination/study. > Interpreting Provider: Dinh Toledo MD on 03/27/2024 2:57 PM Narrative 03/27/2024 2:57 PM CDT PROCEDURE: ??XR HAND RIGHT 2VW, XR HAND LEFT 2VW, XR FOOT LEFT 2VW, XR FOOT RIGHT 2VW, DATE/TIME OF EXAM: ??03/27/2024 2:31 PM, LOCATION ??[facility] INDICATION: M13.0: Polyarthritis COMPARISON: Right and [...] DATE/TIME OF EXAM: 03/27/2024 2:31 PM, LOCATION [facility] INDICATION: M13.0: Polyarthritis COMPARISON: Right and [...] Report dictated by Td Burton MD, MD (residential tech). IDinh MD have personally reviewed and interpreted [...] Report dictated by Td Burton MD, MD (residential tech). I, Dinh Toledo MD have personally reviewed and interpreted this examination/study. > Interpreting Provider: Dinh Toledo MD on 03/27/2024 2:57 PM Narrative 03/27/2024 2:57 PM CDT PROCEDURE: ??XR HAND RIGHT 2VW, XR HAND LEFT 2VW, XR FOOT LEFT 2VW, XR FOOT RIGHT 2VW, DATE/TIME OF EXAM: ??03/27/2024 2:31 PM, LOCATION ??[facility] INDICATION: M13.0: Polyarthritis COMPARISON: Right and [...] DATE/TIME OF EXAM: 03/27/2024 2:31 PM, LOCATION [facility] INDICATION: M13.0: Polyarthritis COMPARISON: Right and [...] Report dictated by Td Burton MD, MD (residential tech). Dinh Osorio MD have personally reviewed and [...] Report dictated by Td Burton MD, MD (residential tech). Dinh Osorio MD have personally reviewed and interpreted this examination/study. > Interpreting Provider: Dinh Toledo MD on 03/27/2024 2:57 PM Narrative 03/27/2024 2:57 PM CDT PROCEDURE: ??XR HAND RIGHT 2VW, XR HAND LEFT 2VW, XR FOOT LEFT 2VW, XR FOOT RIGHT 2VW, DATE/TIME OF EXAM: ??03/27/2024 2:31 PM, LOCATION ??[facility] INDICATION: M13.0: Polyarthritis COMPARISON: Right and [...] DATE/TIME OF EXAM: 03/27/2024 2:31 PM, LOCATION [facility] INDICATION: M13.0: Polyarthritis COMPARISON: Right and [...] Report dictated by Td Burton MD, MD (residential tech). Dinh Osorio MD have personally reviewed and [...] Report dictated by Td Burton MD, MD (residential tech). Dinh Osorio MD have personally reviewed and interpreted this examination/study. > Interpreting Provider: Dinh Toledo MD on 03/27/2024 2:57 PM Narrative 03/27/2024 2:57 PM CDT PROCEDURE: ??XR HAND RIGHT 2VW, XR HAND LEFT 2VW, XR FOOT LEFT 2VW, XR FOOT RIGHT 2VW, DATE/TIME OF EXAM: ??03/27/2024 2:31 PM, LOCATION ??[facility] INDICATION: M13.0: Polyarthritis COMPARISON: Right and [...] DATE/TIME OF EXAM: 03/27/2024 2:31 PM, LOCATION [facility] INDICATION: M13.0: Polyarthritis COMPARISON: Right and [...] Report dictated by Td Burton MD, MD (residential tech). I, Dinh Toledo MD have personally reviewed and interpreted this examination/study. > Interpreting Provider: Dinh Toledo MD on 03/27/2024 2:57 PM Perez Cervantes MD DIAGNOSTIC IMAGING O RDERABLES documented in this encounter Visit Diagnoses Diagnosis Polyarthritis Unspecified polyarthropathy or polyarthritis, site unspecified documented in this encounter Care Teams Straddle Truck Operator Relationship Specialty [place] [address] [address] PCP - General Family Medicine 03/27/24 documented as of this encounter
--- OUTSIDE RECORDS SUMMARY | 2024-11-13 17:46 | XMS_ITS | Encounter Summary ---
Author Organization [facility] Address [address] [facility] [place] [address] Care Team Providers Care Greenhouse Staff Name Role Phone Jaspreet Pearl MD Primary Care Provider + Encounter Details Date Type Department Care Team (Late Contact Info) Description 04/17/2022 Orders Only [facility] Pediatrics - Rheumatology [address] [place] [address]. [place] [address] Perez Cervantes MD [address] [place] [address] 2L [place] [phone] Social History Tobacco Use Types Packs/Day Years [...] Visit [facility] - Rheumatology [address] [place] [address], [place] [address] Perez Cervantes MD [address] [place] [address] 2L [place] [phone] documented as of this encounter Visit Diagnoses Not on filedocumented in this encounter Care Teams Greenhouse Staff Relationship Specialty Start Date End Date Jaspreet Pearl MD PCP - General 08/08/18 03/26/24 documented as of this encounter
--- OUTSIDE RECORDS SUMMARY | 2024-11-13 17:46 | XMS_ITS | Encounter Summary ---
Author Organization [facility] Address [address] [facility] [place] [address] Care Team Providers Care Swimming Pool Salesperson Name Role Phone Jaspreet Pearl MD Primary Care Provider + Reason for Visit * Reason Onset Date Comments Medication Issue 05/17/2023 Encounter Details Date Type Department Care Team (Late st Contact Info) Description 05/17/2023 Telephone [facility] Rheumatology [address] [place] [address], [facility] [address] Perez Cervantes MD [address] [place] [address] [place] [address] Medication Issue Social History Tobacco [...] message. Perez Cervantes MD, FACP, FAAP, MACR Chemical Laboratory Scientist and Pediatric Rheumatology Professor of Internal Medicine,Pediatrics, and Molecular Immunology [facility] C documented in this encounter Plan of Treatment Upcoming Encounters Date Type Department Care Team (Late st Contact Info) Description 03/27/2025 1:00 PM CDT Office Visit [facility] - Rheumatology [address] [place] [address], [place] [address] Perez Cervantes MD [address] [place] [address] [place] [address] documented as of this encounter Visit Diagnoses Not on filedocumented in this encounter Care Teams Swimming Pool Salesperson Relationship Specialty Start Date End Date Jaspreet Pearl MD PCP - General 08/08/18 03/26/24 documented as of this encounter
--- OUTSIDE RECORDS SUMMARY | 2024-11-13 17:46 | XMS_ITS | Encounter Summary ---
Author Organization [facility] Address [address] [facility] [place] [address] Care Team Providers Care Car Inspection And Repair Manager Name Role Phone Jaspreet Pearl MD Primary Care Provider + Encounter Details Date Type Department Care Team (Late Contact Info) Description 04/17/2022 Orders Only [facility] Pediatrics - Rheumatology [address] [place] [address]. [place] [address] Perez Cervantes MD [address] [place] [address] 2L [place] [phone] Social History Tobacco Use Types Packs/Day Years [...] Visit [facility] - Rheumatology [address] [place] [address], [place] [address] Perez Cervantes MD [address] [place] [address] 2L [place] [phone] documented as of this encounter Visit Diagnoses Not on filedocumented in this encounter Care Teams Car Inspection And Repair Manager Relationship Specialty Start Date End Date Jaspreet Pearl MD PCP - General 08/08/18 03/26/24 documented as of this encounter
--- OUTSIDE RECORDS SUMMARY | 2024-11-13 17:46 | XMS_ITS | Encounter Summary ---
Author Organization [facility] Address [address] [facility] [place] [address] Care Team Providers Care A/C Technician Name Role Phone Jaspreet Pearl MD Primary Care Provider + Encounter Details Date Type Department Care Team (Late Contact Info) Description 03/20/2022 Orders Only [facility] [address] [place] [phone] Perez Cervantes MD [address] [place] [address] 2[place] [address] Social History Tobacco Use Types [...] Visit [facility] - Rheumatology [address] [place] [phone] Perez Cervantes MD [address] [place] [address] 2[place] [phone] documented as of this encounter Procedures Procedure [...] [facility] Comment: ??CULTURE, URINE, ROUTINE ?Micro Number: ?[id number] ??Test Status: ? Final ??Specimen Source: ?? Urine ??Specimen Quality: ??Adequate ??Result: ?Mixed genital erin isolated. These superficial ? bacteria are not indicative of a urinary tract ? infection. No further organism identification is ? warranted on this specimen. If clinically ? indicated, recollect clean-catch, mid-stream ? urine and transfer immediately to Urine Culture ? Transport Tube. Test Performed at: [employer] [address] [place], [place] ??[address] ASPEN HOLLINGSWORTH DO,MPH 03/20/2022 7:20 AM CDT 03/20/2022 7:25 AM CDT Perez Cervantes MD LAB - MICROBIOLOGY O JOEY Performing Organization Address [facility] de Phone Number [facility] [id number] [place], [place] [phone] * CULTURE URINE REFLEXED (03/20/2022 7:20 AM CDT) Reflexive Urine Culture See Below [facility] Comment: CULTURE INDICATED - RESULTS TO FOLLOW Test Performed at: [email or web address] [address] [place] [address] ??[phone] ASPEN HOLLINGSWORTH DO,MPH 03/20/2022 7:20 AM CDT 03/20/2022 7:25 AM CDT Perez Cervantes MD LAB - MICROBIOLOGY O JOEY Performing Organization Address [facility] de Phone Number [facility] [address] [place] [address] * C-REACTIVE PROTEIN (03/20/2022 7:20 AM CDT) C-Reactive Protein 3.1 <8.0 mg/L [facility] Comment: Test Performed at: [email or web address]AGINAWSplashscoreM[facility] [place], [place] ??[address] ASPEN HOLLINGSWORTH DO,MPH 03/20/2022 7:20 AM CDT 03/20/2022 7:25 AM CDT Perez Cervantes MD LAB - CHEMISTRY GERA DAVID Performing Organization Address [facility] de Phone Number [facility] [address] [place] [address] * CBC WITH DIFFERENTIAL (03/20/2022 7:20 AM [...] 0.3 % [facility] Comment: Test Performed at: [employer] [address] [place], [place] ??[address] ASPEN HOLLINGSWORTH DO,MPH Blasts [facility] nRBC [facility] Comments [facility] Comment: Test Performed at: [email or web address] [address] [place], [place] ??[address] ASPEN HOLLINGSWORTH DO,MPH 03/20/2022 7:20 AM CDT 03/20/2022 7:25 AM CDT Perez Cervantes MD LAB - HEMATOLOGY ORD ERABLES [facility] [address] [place] [address] * (ABNORMAL) URINALYSIS W/MICROSCOPIC REFLEX TO CULTURE (03/20/2022 7:20 AM CDT) Color UA DARK YELLOW YELLOW [facility] Appearance CLEAR CLEAR [facility] Specific [place] UA 1.024 1.001 - 1.035 [facility] pH [...] SEEN /LPF [facility] Comment: Test Performed at: [email or web address]WS[facility]ashscore[address] ??[address] ASPEN HOLLINGSWORTH DO,MPH Granular Casts [facility] Casts UA [facility] Yeast [facility] Comments [facility] Note [facility] Comment: Test Performed at: [email or web address] [address] ??[address] ASPEN HOLLINGSWORTH DO,MPH 03/20/2022 7:20 AM CDT 03/20/2022 7:25 AM CDT Perez Cervantes MD LAB - URINALYSIS ORD ERABLES Performing Organization Address [facility] de Phone Number [facility] [address] [place] [address] * ERYTHROCYTE SEDIMENTATION RATE (03/20/2022 7:20 AM CDT) Pathologist [facility] Erythrocyte Sedimentation Rate Westergren 9 < OR = 30 mm/h [facility] Comment: Test Performed at: [email or web address] [address] ??[address] ASPEN HOLLINGSWORTH DO,MPH 03/20/2022 7:20 AM CDT 03/20/2022 7:25 AM CDT Perez Cervantes MD LAB - HEMATOLOGY ORD ERABLES Performing Organization Address [facility] de Phone Number [address] [address] * COMPREHENSIVE METABOLIC PANEL (03/20/2022 7:20 AM CDT) Pathologist [facility] Glucose 81 65 - 99 mg/dL [facility] [...] 29 U/L [facility] Comment: Test Performed at: [facility] [id number] [place] [address] ??[phone] ASPEN HOLLINGSWORTH DO,MPH 03/20/2022 7:20 AM CDT 03/20/2022 7:25 AM CDT Perez Cervantes MD LAB - CHEMISTRY GERA DAVID [facility] Organization Address City/State/ZIP Co de Phone Number [facility] [address] [place] [address] documented in this encounter Visit Diagnoses Not on filedocumented in this encounter Care Teams A/C Technician Relationship Specialty Start Date End Date Jaspreet Pearl MD PCP - General 08/08/18 03/26/24 documented as of this encounter
--- OUTSIDE RECORDS SUMMARY | 2024-11-13 17:46 | XMS_ITS | Encounter Summary ---
Author Organization [facility] Health Address [address] [facility] [place] [address] Care Team Providers Care Wedger Machine Name Role Phone Jaspreet Pearl MD Primary Care Provider + Reason for Visit * Reason Onset Date Comments Medication Prior Auth Request 08/11/2023 Encounter Details Date Type Department Care Team (Late st Contact Info) Description 08/11/2023 Telephone [facility] Rhe[facility]ology [address] [place] [address], [facility] [place] [address] Perez Cervantes MD [address] [place] [address] [place] [address] Medication Prior Auth Request Social [...] Notes * Telephone Encounter - Mario Bolton, hammer driver - 08/11/2023 3:06 PM CDT Medication Prior Authorization ?? Medication: Enbrel 50mg/ml prefilled syringe Status: Approved through 08/11/2023 Submitted via: Fax # ?? Insurance: [employer] [place] Helpdesk: [phone] * Telephone Encounter - Mario Bolton CPhT - 08/11/2023 9:28 AM CDT Medication Prior Authorization Medication: Enbrel 50mg/ml prefilled syringe Status: Submitted - Pending Submitted via: Fax # Insurance: [employer] [place] Helpdesk: [phone] documented in this encounter Plan of Treatment Upcoming Encounters Date Type Department Care Team (Late st Contact Info) Description 03/27/2025 1:00 PM CDT Office Visit [facility] [address] [place] [address], [place] [phone] Perez Cervantes MD [address] [place] [address] [place] [phone] documented as of this encounter Visit Diagnoses Not on filedocumented in this encounter Care Teams Wedger Machine Relationship Specialty Start Date End Date Jaspreet Pearl MD PCP - General 08/08/18 03/26/24 documented as of this encounter
--- OUTSIDE RECORDS SUMMARY | 2024-11-13 17:46 | XMS_ITS | Encounter Summary ---
Author Organization [facility] Address [address] [place] [address] Care Team Providers Care Ingredient Scaler Helper Name Role Phone Jaspreet Pearl MD Primary Care Provider + Encounter Details Date Type Department Care Team (Late st Contact Info) Description 01/28/2023 Orders Only [facility] [address] [place] [phone] Perez Cervantes MD [address] [place] [address] [address] [place] [address] Social History Tobacco Use Types [...] Office Visit [facility] [address] [place] [phone] Perez Cervantes MD [address] [place] [address] [address] [place] [phone] documented as of this encounter Procedures Procedure [...] Comment: REPORT COMMENT: FASTING:YES Test Performed at: [facility] [place] [address] [place], [place] ??[address] NAVID SCOTT MD 01/28/2023 7:03 AM CDT 01/28/2023 7:05 AM CDT Perez Cervantes MD LAB - CHEMISTRY [facility] Organization Address City/State/ZIP Co de Phone Number [address] [address] * CULTURE URINE REFLEXED III (01/28/2023 7:03 AM CDT) Pathologist [facility] Reflexive Urine Culture See Below [facility] Comment: NO CULTURE INDICATED Test Performed at: [facility] ??[address] NAVDI SCOTT MD 01/28/2023 7:03 AM CDT 01/28/2023 7:05 AM CDT Perez Cervantes MD LAB - MICROBIOLOGY O RDERABLES Performing Organization Address [facility] Co de Phone Number [address] [address] * (ABNORMAL) URINALYSIS W/MICROSCOPIC REFLEX TO CULTURE (01/28/2023 7:03 AM CDT) Pathologist [facility] Color UA DARK YELLOW YELLOW [facility] Appearance CLEAR CLEAR [facility] Specific Crowell UA 1.021 1.001 - 1.035 [facility] pH [...] SEEN /LPF [facility] Comment: Test Performed at: [facility] ??[address] NAVID SCOTT MD 01/28/2023 7:03 AM CDT 01/28/2023 7:05 AM CDT Perez Cervantes MD LAB - URINALYSIS ORD ERABLES Performing Organization Address [facility] Co de Phone Number [address] [address] * (ABNORMAL) CBC WITH DIFFERENTIAL (01/28/2023 7:03 AM CDT) Pathologist [facility] White Blood Cell Count 3.7(L) 3.8 - [...] 0.5 % [facility] Comment: Test Performed at: [facility] [address] ??[address] NAVID SCOTT MD Blasts [facility] nRBC [facility] Comments [facility] Comment: Test Performed at: [facility] [address] ??[address] NAVID SCOTT MD 01/28/2023 7:03 AM CDT 01/28/2023 7:05 AM CDT Perez Cervantes MD LAB - HEMATOLOGY ORD ERABLES Performing Organization Address City/[facility] Co de Phone Number [facility] [address] [place] [address] * ERYTHROCYTE SEDIMENTATION RATE (01/28/2023 7:03 AM CDT) Pathologist [facility] Erythrocyte Sedimentation Rate Westergren 11 < OR = 30 mm/h [facility] Comment: Test Performed at: [facility] [address] ??[address] NAVID SCOTT MD 01/28/2023 7:03 AM CDT 01/28/2023 7:05 AM CDT Perez Cervantes MD LAB - HEMATOLOGY ORD ERABLES Performing Organization Address City/[facility] Co de Phone Number [facility] [phone] [place] [address] * COMPREHENSIVE METABOLIC PANEL (01/28/2023 7:03 AM [...] 29 U/L [facility] Comment: Test Performed at: [facility] ??[address] NAVID SCOTT MD 01/28/2023 7:03 AM CDT 01/28/2023 7:05 AM CDT Perez Cervantes MD LAB - CHEMISTRY GERA DAVID [facility] [address] [place] [address] documented in this encounter Visit Diagnoses Not on filedocumented in this encounter Care Teams Ingredient Scaler Helper Relationship Specialty Start Date End Date Jaspreet Pearl MD PCP - General 08/08/18 03/26/24 documented as of this encounter
--- OUTSIDE RECORDS SUMMARY | 2024-11-13 17:46 | XMS_ITS | Encounter Summary ---
Author Organization [facility] Address [address] [place] [address] Care Team Providers Care Apn Name Role Phone Jaspreet Pearl MD Primary Care Provider + Encounter Details Date Type Department Care Team (Late Contact Info) Description 05/15/2022 Orders Only [facility] [address] [place] [phone] Perez Cervantes MD [address] [place] [address] [address] [address] Social History Tobacco Use [...] Visit [facility] [address] [place] [phone] Perez Cervantes MD [address] [place] [address] [address] [place] [phone] documented as of this encounter Procedures Procedure [...] [facility] Comment: ??CULTURE, URINE, ROUTINE ?Micro Number: ?[id number] ??Test Status: ? Final ??Specimen Source: ?? [...] Comments REPORT COMMENT: FASTING:YES Test Performed at: [facility] ??[address] ASPEN HOLLINGSWORTH DO,MPH 05/15/2022 10:2 9 AM CDT 05/15/2022 10:34 AM CDT Perez Cervantes MD LAB - MICROBIOLOGY O JOEY Performing Organization Address [facility] de Phone Number [facility] [address] [place] [address] * CULTURE URINE REFLEXED (05/15/2022 10:29 AM CDT) Reflexive Urine Culture See Below [facility] Comment: CULTURE INDICATED - RESULTS TO FOLLOW Test Performed at: [facility] ??[address] ASPEN HOLLINGSWORTH DO,MPH 05/15/2022 10:2 9 AM CDT 05/15/2022 10:34 AM CDT Perez Cervantes MD LAB - MICROBIOLOGY O JOEY Performing Organization Address [facility] de Phone Number [facility] [address] [place] [address] * C-REACTIVE PROTEIN (05/15/2022 10:29 AM CDT) C-Reactive Protein 2.5 <8.0 mg/L [facility] Comment: Test Performed at: [facility] [address] [facility] [place] ??[address] ASPEN HOLLINGSWORTH DO,MPH 05/15/2022 10:2 9 AM CDT 05/15/2022 10:34 AM CDT Perez Cervantes MD LAB - CHEMISTRY GERA DAVID Performing Organization Address City/[facility]/ZIP Co de Phone Number [facility] [address] [place] [address] * CBC WITH DIFFERENTIAL (05/15/2022 10:29 AM [...] 0.5 % [facility] Comment: Test Performed at: [facility] [address] [place], [place] ??[address] NAVID SCOTT MD 05/15/2022 10:2 9 AM CDT 05/15/2022 10:34 AM CDT Perez Cervantes MD LAB - HEMATOLOGY ORD DANITA [facility] [address] [place] [address] * ERYTHROCYTE SEDIMENTATION RATE (05/15/2022 10:29 AM CDT) Erythrocyte Sedimentation Rate Westergren 19 < OR = 30 mm/h [facility] Comment: Test Performed at: [facility] ??[address] NAVID SCOTT MD 05/15/2022 10:2 9 AM CDT 05/15/2022 10:34 AM CDT Perez Cervantes MD LAB - HEMATOLOGY ORD ERABLES Performing Organization Address [facility] de Phone Number [facility] [address] [place] [address] * (ABNORMAL) URINALYSIS W/MICROSCOPIC REFLEX TO CULTURE (05/15/2022 10:29 AM CDT) Color UA DARK YELLOW YELLOW [facility] Appearance CLEAR CLEAR [facility] Specific [place]ding UA 1.021 1.001 - 1.035 [facility] pH [...] SEEN /LPF [facility] Comment: Test Performed at: [facility] [address] [place], [place] ??[address] ASPEN HOLLINGSWORTH DO,MPH Granular Casts [facility] Casts UA [facility] Yeast [facility] Comments [facility] Note [facility] Comment: Test Performed at: [facility] [address] [place], [place] ??[address] ASPEN HOLLINGSWORTH DO,MPH 05/15/2022 10:2 9 AM CDT 05/15/2022 10:34 AM CDT Perez Cervantes MD LAB - URINALYSIS ORD ERABLES Performing Organization Address [facility]/State/ZIP Co de Phone Number [facility] [address] [place] [address] * (ABNORMAL) COMPREHENSIVE METABOLIC PANEL (05/15/2022 10:29 AM CDT) Glucose 86 65 - 99 mg/dL [facility] Comment: ? Fasting reference interval BUN 17 7 - 25 mg/dL [facility] Creatinine 0.78 0.50 - 1.05 mg/dL [facility] Comment: For patients >49 years of age, the reference limit for Creatinine is approximately 13% higher for people identified as -[place]ian. eGFR by MDRD 83 > OR = [...] 29 U/L [facility] Comment: Test Performed at: [facility] ??[address] ASPEN HOLLINGSWORTH DO,MPH 05/15/2022 10:2 9 AM CDT 05/15/2022 10:34 AM CDT Perez Cervantes MD LAB - CHEMISTRY GERA DAVID [facility] [address] [place] [address] documented in this encounter Visit Diagnoses Not on filedocumented in this encounter Care Teams Apn Relationship Specialty Start Date End Date Jaspreet Pearl MD PCP - General 08/08/18 03/26/24 documented as of this encounter
--- OUTSIDE RECORDS SUMMARY | 2024-11-13 17:46 | XMS_ITS | Encounter Summary ---
Author Organization [facility] Health Address [address] [facility] [place] [address] Care Team Providers Care Interior Design Program Chair Name Role Phone Dayanara Plaza MD Primary Care Provider [phone] Reason for Visit * Reason Onset Date Comments MEDICATION REFILL 07/11/2024 Encounter Details Date Type Department Care Team (Late st Contact Info) Description 07/11/2024 Refill [facility] Rheumatology [address] [place] [address], [facility] [place] [address] Perez Cervantes MD [address] [place] [address] [place] [address] MEDICATION REFILL Social History Tobacco [...] Office Visit [facility] Rhe[facility]ology [address] [place] [address], [facility] [place] [phone] Perez Cervantes MD [address] [place] [address] [place] [phone] documented as of this encounter Visit Diagnoses Diagnosis Polyarthritis- Primary Unspecified polyarthropathy or polyarthritis, site unspecified documented in this encounter Care Teams Interior Design Program Chair Relationship Specialty [place] [address] [phone] PCP - General Family Medicine 03/27/24 documented as of this encounter
--- OUTSIDE RECORDS SUMMARY | 2024-11-13 17:46 | XMS_ITS | Encounter Summary ---
Author Organization [facility] Address [address] [facility] [place] [address] Care Team Providers Care Batch Analyst Name Role Phone Jaspreet Pearl MD Primary Care Provider + Encounter Details Date Type Department Care Team (Latest Contact Info) Description 09/01/2022 4:30 PM CDT - 09/01/2022 11:59 PM CDT Hospital Encounter [facility] DI[facility]IC RAD OP [address] [place] [phone] Unknown, Provider Discharge Disposition: Home or Self [...] End Date Azelastine HCl 137 MCG/SPRAY SOLN Seltzer 2 sprays into the nose 2 times [...] Visit [facility] Rhe[facility]ology [address] [place] [address], [place] [address] Perez Cervantes MD [address] [place] [address] [place] [address] documented as of this encounter Procedures Procedure [...] DATE/TIME OF EXAM: ??09/01/2022 4:36 PM, LOCATION [facility] INDICATION: Z51.81: Encounter for therapeutic drug monitoring COMPARISON: Chest x-ray 06/09/2021 FINDINGS/IMPRESSION: There is no focal consolidation, pleural effusion, or pneumothorax. The cardiomediastinal silhouette is normal. The visible bony thorax is intact. Report dictated by Wm Tran MD, MD (assistant professor of radiology). Dameon Osorio have personally reviewed and interpreted this examination/study. > Interpreting Provider: Dameon oJhnson on 09/02/2022 9:38 AM Procedure Note Dameon Johnson MD - 09/02/2022 PROCEDURE: XR CHEST 2VW, DATE/TIME OF EXAM: 09/01/2022 4:36 PM, LOCATION [facility] INDICATION: Z51.81: Encounter for therapeutic drug monitoring COMPARISON: Chest x-ray 06/09/2021 FINDINGS/IMPRESSION: There is no focal consolidation, pleural effusion, or pneumothorax. The cardiomediastinal silhouette is normal. The visible bony thorax isintact. Report dictated by Wm Tran MD, MD (assistant professor of radiology). Dameon Osorio have personally reviewed and interpreted this examination/study. > Interpreting Provider: Dameon Johnson on 09/02/2022 9:38 AM Perez Cervantes MD DIAGNOSTIC IMAGING O RDERABLES documented in this encounter Visit Diagnoses Diagnosis Encounter for therapeutic drug monitoring documented in this encounter Care Teams Batch Analyst Relationship Specialty Start Date End Date Jaspreet Pearl MD PCP - General 08/08/18 03/26/24 documented as of this encounter
--- OUTSIDE RECORDS SUMMARY | 2024-11-13 17:46 | XMS_ITS | Encounter Summary ---
Author Organization [facility] Address [address] [facility] [place] [place] [address] Care Team Providers Care Cook Larder Name Role Phone Jaspreet Pearl MD Primary Care Provider + Dayanara Plaza MD Primary Care Provider [phone] Encounter Details Date Type Department Care Team (Late Contact Info) Description 07/28/2022 Telephone [facility] [address] [place] [phone] Perez Cervantes MD [address] [place] [address] [address] [place] [phone] Social History Tobacco Use Types Packs/Day Years [...] Visit [facility] [address] [place] [phone] Perez Cervantes MD [address] [place] [address] [address] [place] [address] documented as of this encounter Visit Diagnoses Not on filedocumented in this encounter Care Teams Cook Larder Relationship Specialty Start Date End Date Jaspreet Pearl MD PCP - General 08/08/18 03/26/24 [place] [address] [phone] PCP - General Family Medicine 03/27/24 documented as of this encounter
--- OUTSIDE RECORDS SUMMARY | 2024-11-13 17:46 | XMS_ITS | Encounter Summary ---
Author Organization [facility] Address [address] [facility] [place] [address] Care Team Providers Care Lacing String Cutter Name Role Phone Jaspreet Pearl MD Primary Care Provider + Encounter Details Date Type Department Care Team (Late Contact Info) Description 09/01/2022 Orders Only [facility] [address] [place] [phone] Perez Cervantes MD [address] [place] [address] 2[place] [address] Screening-pulmonary TB ; Encounter for [...] Upcoming Encounters Date Type Department Care Team ([facility] Contact Info) Description 03/27/2025 1:00 PM CDT Office Visit [facility] [address] [place] [phone] Perez Cervantes MD [address] [place] [address] [address] [place] [facility] [place] [address] Scheduled Orders Name Type Priority Associated Diagnoses Orde r Schedule [facility] Lab Routine Screening-pulmonary TB Encounter for long-term (current) use of medications Ordered: 09/01/2022 documented as of this encounter Visit Diagnoses Diagnosis Screening-pulmonary TB- Primary Screening examination for pulmonary tuberculosis Encounter for long-term (current) use of medications Encounter for long-term (current) use of other medications documented in this encounter Care Teams Lacing String Cutter Relationship Specialty Start Date End Date Jaspreet Pearl MD PCP - General 08/08/18 03/26/24 documented as of this encounter
--- OUTSIDE RECORDS SUMMARY | 2024-11-13 17:46 | XMS_ITS | Encounter Summary ---
Author Organization [facility] Address [address] [facility] [place] [address] Care Team Providers Care Cardiology Coordinator Name Role Phone Jaspreet Pearl MD Primary Care Provider + Encounter Details Date Type Department Care Team (Late Contact Info) Description 10/23/2022 Orders Only [facility] [address] [place] [phone] Perez Cervantes MD [address] [place] [address] 2[place] [address] Encounter for therapeutic drug monitoring; [...] Office Visit [facility] Rhe[facility] [address] [place] [phone] Perez Cervantes MD [address] [place] [address] [address] [place] [phone] documented as of this encounter Procedures Procedure Name Priority Date/Time Associated Diagnosis Comments CULTURE URINE REFLEXED II 11/20/2022 7:12 AM CENTERLESS GRINDING MACHINE ADJUSTER URINALYSIS W/MICROSCOPIC REFLEX TO CULTURE Routine 11/20/2022 7:12 AM CENTERLESS GRINDING MACHINE ADJUSTER Encounter for therapeutic drug monitoring Polyarthritis C-REACTIVE PROTEIN Routine 11/20/2022 7: 12 AM CENTERLESS GRINDING MACHINE ADJUSTER Encounter for therapeutic drug monitoring Polyarthritis CULTURE URINE 11/20/2022 7:12 AM CENTERLESS GRINDING MACHINE ADJUSTER ERYTHROCYTE SEDIMENTATION RATE Routine 11/20/2022 7:12 AM CENTERLESS GRINDING MACHINE ADJUSTER Encounter for therapeutic drug monitoring Polyarthritis CBC W AUTO DIFFERENTIAL Routine 11/20/2022 7:12 AM CENTERLESS GRINDING MACHINE ADJUSTER Encounter for therapeutic drug monitoring Polyarthritis COMPREHENSIVE METABOLIC PANEL Routine 11/20/2022 7:12 AM CENTERLESS GRINDING MACHINE ADJUSTER Encounter for therapeutic drug monitoring Polyarthritis documented in this encounter Results * CULTURE URINE (11/20/2022 7:12 AM CENTERLESS GRINDING MACHINE ADJUSTER) Culture [facility] Comment: ??CULTURE, URINE, ROUTINE ?Micro Number: ?[id number] ??Test Status: ? Final ??Specimen Source: ?? Urine ??Specimen Quality: ??Adequate ??Result: ?No Growth REPORT COMMENT: FASTING:YES Test Performed at: [facility] ??[address] NAVID SCOTT MD 11/20/2022 7:12 AM CENTERLESS GRINDING MACHINE ADJUSTER 11/20/2022 7:13 AM CENTERLESS GRINDING MACHINE ADJUSTER Perez Cervantes MD LAB - MICROBIOLOGY O RDERABLES [address] [address] * CULTURE URINE REFLEXED II (11/20/2022 7:12 AM CENTERLESS GRINDING MACHINE ADJUSTER) Pathologist [facility] Reflexive Urine Culture See Below [facility] Comment: CULTURE INDICATED - RESULTS TO FOLLOW Test Performed at: [facility] [address] ??[address] NAVID SCOTT MD 11/20/2022 7:12 AM CENTERLESS GRINDING MACHINE ADJUSTER 11/20/2022 7:13 AM CENTERLESS GRINDING MACHINE ADJUSTER Perez Cervantes MD LAB - MICROBIOLOGY O RDERABLES Performing Organization Address [facility]/ZIP Co de Phone Number [address] [address] * (ABNORMAL) URINALYSIS W/MICROSCOPIC REFLEX TO CULTURE (11/20/2022 7:12 AM CENTERLESS GRINDING MACHINE ADJUSTER) Color UA YELLOW YELLOW [facility] Appearance CLEAR CLEAR [facility] Specific [place] UA 1.017 1.001 - 1.035 [facility] pH [...] SEEN /LPF [facility] Comment: Test Performed at: [facility] [address] ??[address] NAVID SCOTT MD Urine URINE SPECIMEN OBTAINED BY CLEAN CATCH PROCEDURE / Unknown 11/20/2022 7:12 AM CENTERLESS GRINDING MACHINE ADJUSTER 11/20/2022 7:13 AM CENTERLESS GRINDING MACHINE ADJUSTER Perez Cervantes MD LAB - URINALYSIS ORD ERABLES Performing Organization Address [facility]/ZIP Co de Phone Number [address] [address] * ERYTHROCYTE SEDIMENTATION RATE (11/20/2022 7:12 AM CENTERLESS GRINDING MACHINE ADJUSTER) Pathologist [facility] Erythrocyte Sedimentation Rate Westergren 19 < OR = 30 mm/h [facility] Comment: Test Performed at: [facility] [address] [place], [place] ??[address] ASPEN HOLLINGSWORTH DO,MPH Blood BLOOD SPECIMEN / Unknown 11/20/2022 7:12 AM CENTERLESS GRINDING MACHINE ADJUSTER 11/20/2022 7:13 AM CENTERLESS GRINDING MACHINE ADJUSTER Perez Cervantes MD LAB - HEMATOLOGY ORD ERABLES Performing Organization Address [facility] Co de Phone Number [facility] [address] [place] [address] * C-REACTIVE PROTEIN (11/20/2022 7:12 AM CENTERLESS GRINDING MACHINE ADJUSTER) C-Reactive Protein 3.0 <8.0 mg/L [facility] Comment: Test Performed at: [facility] [address] [place], [place] ??[address] ASPEN HOLLINGSWORTH DO,MPH Blood BLOOD SPECIMEN / Unknown 11/20/2022 7:12 AM CENTERLESS GRINDING MACHINE ADJUSTER 11/20/2022 7:13 AM CENTERLESS GRINDING MACHINE ADJUSTER Perez Cervantes MD LAB - CHEMISTRY ORDE RABDEMARCO Performing Organization Address [facility] de Phone Number [facility] [address] [place] [address] * (ABNORMAL) COMPREHENSIVE METABOLIC PANEL (11/20/2022 7:12 AM CENTERLESS GRINDING MACHINE ADJUSTER) Glucose 79 65 - 99 mg/dL [facility] [...] 29 U/L [facility] Comment: Test Performed at: [facility] [address] [facility] [place] [place] ??[address] ASPEN HOLLINGSWORTH DO,MPH Blood BLOOD SPECIMEN / Unknown 11/20/2022 7:12 AM CENTERLESS GRINDING MACHINE ADJUSTER 11/20/2022 7:13 AM CENTERLESS GRINDING MACHINE ADJUSTER Perez Cervantes MD LAB - CHEMISTRY ORDE JOANN Performing Organization Address City/State/[facility] Co de Phone Number [facility] [address] [place] [address] * CBC WITH DIFFERENTIAL (11/20/2022 7:12 AM CENTERLESS GRINDING MACHINE ADJUSTER) White Blood Cell Count 3.8 3.8 - [...] 0.3 % [facility] Comment: Test Performed at: [facility] [place] [address] [place], [place] ??[address] ASPEN HOLLINGSWORTH DO,MPH Blasts [facility] nRBC [facility] Comments [facility] Comment: Test Performed at: [facility] [place] [address] [place], [place] ??[address] ASPEN HOLLINGSWORTH DO,MPH Blood BLOOD SPECIMEN / Unknown 11/20/2022 7:12 AM CENTERLESS GRINDING MACHINE ADJUSTER 11/20/2022 7:13 AM CENTERLESS GRINDING MACHINE ADJUSTER Perez Cervantes MD LAB - HEMATOLOGY ORD ERABLES Performing Organization Address City/State/[facility] Co de Phone Number [facility] [address] [place] [address] documented in this encounter Visit Diagnoses Diagnosis Encounter for therapeutic drug monitoring Polyarthritis Unspecified polyarthropathy or polyarthritis, site unspecified documented in this encounter Care Teams Cardiology Coordinator Relationship Specialty Start Date End Date Jaspreet Pearl MD PCP - General 08/08/18 03/26/24 documented as of this encounter
--- OUTSIDE RECORDS SUMMARY | 2024-11-13 17:47 | XMS_ITS | Encounter Summary ---
Author Organization [facility] Health Address [address] [facility] [place] [address] Care Team Providers Care Performing Arts Technicians Name Role Phone Jaspreet Pearl MD Primary Care Provider + Encounter Details Date Type Department Care Team (Latest Contact Info) Description 06/09/2021 3:40 PM CDT - 06/09/2021 11:59 PM CDT Hospital Encounter [facility] OP [address] [place] [address] Perez Cervantes MD [address] [place] [address] Discharge Disposition: Home or Self [...] End Date Azelastine HCl 137 MCG/SPRAY SOLN [place] 2 sprays into the nose 2 times [...] Office Visit [facility] - Rheumatology [address] [place] [address] [place] [phone] Perez Cervantes MD [address] [address] documented as of this encounter [...] is intact. Dictated by Maile Luque MD (radiology director). IDr. ANA LUISA M.D. have personally reviewed [...] thorax isintact. Dictated by Maile Luque MD (radiology director). Dr. ANA LUISA Osorio M.D. have personally reviewed and interpreted this examination/study. This report was electronically signed by ANA LUISA KAUFMAN M.D. on 06/10/2021 12:41 PM . Perez Cervantes MD DIAGNOSTIC IMAGING O RDERABLES documented in this encounter Visit Diagnoses Diagnosis Encounter for therapeutic drug monitoring documented in this encounter Care Teams Performing Arts Technicians Relationship Specialty Start Date End Date Jaspreet Pearl MD PCP - General 08/08/18 03/26/24 documented as of this encounter
--- OUTSIDE RECORDS SUMMARY | 2024-11-13 17:47 | XMS_ITS | Encounter Summary ---
Author Organization [facility] Health Address [address] [facility] [place] [address] Care Team Providers Care Pouring Crane Operator Name Role Phone Jaspreet Pearl MD Primary Care Provider + Reason for Visit * Reason Onset Date Comments General 10/31/2021 Encounter Details Date Type Department Care Team (Late st Contact Info) Description 10/31/2021 Telephone [facility] [address] [place] [address], [place] [address] Perez Cervantes MD [address] [place] [address] [place] [address] General Social History Tobacco Use [...] wanting lab requisitions from 10/31/2021 faxed to [facility] , which I did this morning. [facility] Fax number [phone] Faxed successfully. EXPERIENCE documented in this encounter Plan of Treatment Upcoming Encounters Date Type Department Care Team (Late st Contact Info) Description 03/27/2025 1:00 PM CDT Office Visit [facility] - Rheumatology [address] [place] [address], [place] [phone] Perez Cervantes MD [address] [place] [address] [place] [phone] documented as of this encounter Visit Diagnoses Not on filedocumented in this encounter Care Teams Pouring Crane Operator Relationship Specialty Start Date End Date Jaspreet Pearl MD PCP - General 08/08/18 03/26/24 documented as of this encounter
--- OUTSIDE RECORDS SUMMARY | 2024-11-13 17:47 | XMS_ITS | Encounter Summary ---
Author Organization [facility] Address [address] [facility] [address] Care Team Providers Care Transmitter Engineer In Charge Name Role Phone Jaspreet Pearl MD Primary Care Provider + Encounter Details Date Type Department Care Team (Late st Contact Info) Description 03/03/2021 Orders Only [facility] [address] [place] [phone] Perez Cervantes MD [address] [place] [address] 2L [place] [phone] Social History Tobacco Use Types Packs/Day Years [...] Office Visit [facility] - Rheumatology [address] [place] [phone] Perez Cervantes MD [address] [place] [address] 2L [place] [phone] documented as of this encounter Procedures Procedure [...] PROTEIN (03/03/2021 11:34 AM CDT) Pathologist [facility] C-Reactive Protein 2.9 <8.0 mg/L [facility] Comment: Test Performed at: [facility] ??[phone] ASPEN HOLLINGSWORTH DO,MPH 03/03/2021 11:3 4 AM CDT 03/03/2021 11:35 AM CDT Perez Cervantes MD LAB - CHEMISTRY GERA DAVID [facility] ([place], [place]) Organization Address City/State/ZIP Co de Phone Number [facility] [address] [place] [address] * CBC WITH DIFFERENTIAL (03/03/2021 11:34 AM CDT) Pathologist [facility] White Blood Cell Count 5.9 3.8 - [...] 0.3 % [facility] Comment: Test Performed at: [facility] [address] [place], [place] ??[address] ASPEN HOLLINGSWORTH DO,MPH 03/03/2021 11:3 4 AM CDT 03/03/2021 11:35 AM CDT Perez Cervantes MD LAB - HEMATOLOGY ORD ERABLES Performing Organization Address [facility] Co de Phone Number [facility] [address] [place] [address] * CULTURE URINE REFLEXED I (03/03/2021 11:34 AM CDT) Reflexive Urine Culture See Below [facility] Comment: NO CULTURE INDICATED Test Performed at: [facility] [address] [place], [place] ??[address] ASPEN HOLLINGSWORTH DO,MPH 03/03/2021 11:3 4 AM CDT 03/03/2021 11:35 AM CDT Perez Cervantes MD LAB - MICROBIOLOGY O RDERABLES Performing Organization Address [facility] Co de Phone Number [facility] [address] [place] [address] * (ABNORMAL) URINALYSIS W/MICROSCOPIC REFLEX TO CULTURE (03/03/2021 11:34 AM CDT) Color UA YELLOW YELLOW [facility] Appearance CLEAR CLEAR [facility] Specific [place] UA 1.012 1.001 - 1.035 [facility] pH [...] SEEN /LPF [facility] Comment: Test Performed at: [facility] [address] [place], [place] ??[address] ASPEN HOLLINGSWORTH DO,MPH 03/03/2021 11:3 4 AM CDT 03/03/2021 11:35 AM CDT Perez Cervantes MD LAB - URINALYSIS ORD ERABLES Performing Organization Address [facility] Co de Phone Number [address] [address] * ERYTHROCYTE SEDIMENTATION RATE (03/03/2021 11:34 AM CDT) Erythrocyte Sedimentation Rate Westergren 17 < OR = 30 mm/h [facility] Comment: Test Performed at: [facility] [address] [place], [place] ??[address] ASPEN HOLLINGSWORTH DO,MPH 03/03/2021 11:3 4 AM CDT 03/03/2021 11:35 AM CDT Perez Cervantes MD LAB - HEMATOLOGY ORD ERABLES Performing Organization Address [facility] Co de Phone Number [address] [address] documented in this encounter Visit Diagnoses Not on filedocumented in this encounter Care Teams Transmitter Engineer In Charge Relationship Specialty Start Date End Date Jaspreet Pearl MD PCP - General 08/08/18 03/26/24 documented as of this encounter
--- OUTSIDE RECORDS SUMMARY | 2024-11-13 17:47 | XMS_ITS | Encounter Summary ---
Author Organization [facility] Address [address] [facility] [address] Care Team Providers Care Visualizer Name Role Phone Jaspreet Pearl MD Primary Care Provider + Encounter Details Date Type Department Care Team (Late Contact Info) Description 06/20/2021 Orders Only [facility] [address] [place] [address], [place] [address] Perez Cervantes MD [address] [place] [address] [place] [address] Encounter for therapeutic drug monitoring [...] Visit [facility] [address] [place] [address] Perez Cervantes MD [address] [place] [address] documented as of this encounter [...] [facility] Comment: ??CULTURE, URINE, ROUTINE ?Micro Number: ?[id number] ??Test Status: ? Final ??Specimen Source: ?? Urine ??Specimen Quality: ??Adequate ??Result: ?Growth of mixed erin was isolated, suggesting ? probable contamination. No further testing will ? be performed. If clinically indicated, ? recollection using a method to minimize ? contamination, with prompt transfer to Urine ? Culture Transport Tube, is recommended. Test Performed at: [address] ??[address] NAVID SCOTT MD 06/20/2021 7:32 AM CDT 06/20/2021 7:34 AM CDT Perez Cervantes MD LAB - MICROBIOLOGY O JOEY Performing Organization Address [facility] Co de Phone Number [address] [address] * CULTURE URINE REFLEXED II (06/20/2021 7:32 AM CDT) Pathologist [facility] Reflexive Urine Culture See Below [facility] Comment: CULTURE INDICATED - RESULTS TO FOLLOW Test Performed at: [address] ??[address] NAVID SCOTT MD 06/20/2021 7:32 AM CDT 06/20/2021 7:34 AM CDT Perez Cervantes MD LAB - MICROBIOLOGY O JOEY Performing Organization Address [facility] Co de Phone Number [address] [address] * QUANTIFERON-TB GOLD PLUS 1-TUBE (06/20/2021 7:32 AM CDT) Pathologist [facility] QuantiFERON TB Gold Plus NEGATIVE [...] T-lymphocytes. For additional information, please refer to https://IntervalZero.freee/faq/DLT843 (This link is being provided for informational/ educational purposes only.) Test Performed at: [facility] [address] [place] [address] ??[phone] ASPEN HOLLINGSWORTH DO,MPH 06/20/2021 7:32 AM CDT 06/20/2021 7:34 AM CDT Perez Cervantes MD LAB - CHEMISTRY GERA DAVID Performing Organization Address [facility] de Phone Number [facility] [address] [place] [address] * C-REACTIVE PROTEIN (06/20/2021 7:32 AM CDT) Pathologist [facility] C-Reactive Protein 2.7 <8.0 mg/L [facility] Comment: Test Performed at: [facility] [address] [place] [address] ??[phone] ASPEN HOLLINGSWORTH DO,MPH 06/20/2021 7:32 AM CDT 06/20/2021 7:34 AM CDT Perez Cervantes MD LAB - CHEMISTRY GERA DAVID Performing Organization Address [facility] de Phone Number [facility] [address] [place] [address] * CBC WITH DIFFERENTIAL (06/20/2021 7:32 AM CDT) Pathologist [facility] White Blood Cell Count 4.3 3.8 - [...] 0.5 % [facility] Comment: Test Performed at: [employer] ??[address] NAVID SCOTT MD 06/20/2021 7:32 AM CDT 06/20/2021 7:34 AM CDT Perez Cervantes MD LAB - HEMATOLOGY ORD ERABLES Performing Organization Address [facility] Co de Phone Number [address] [address] * ERYTHROCYTE SEDIMENTATION RATE (06/20/2021 7:32 AM CDT) Erythrocyte Sedimentation Rate Westergren 11 < OR = 30 mm/h [facility] Comment: Test Performed at: [employer] ??[address] NAVID SCOTT MD 06/20/2021 7:32 AM CDT 06/20/2021 7:34 AM CDT Perez Cervantes MD LAB - HEMATOLOGY ORD ERABLES Performing Organization Address [facility] Co de Phone Number [address] [address] * (ABNORMAL) URINALYSIS W/MICROSCOPIC REFLEX TO CULTURE (06/20/2021 7:32 AM CDT) Color UA YELLOW YELLOW [facility] Appearance CLOUDY(A) CLEAR [facility] Specific [place] UA 1.020 1.001 - 1.035 [facility] pH [...] SEEN /LPF [facility] Comment: Test Performed at: [employer] ??[address] NAVID SCOTT MD Granular Casts [facility] Casts UA [facility] Yeast [facility] Comments [facility] Note [facility] Comment: Test Performed at: [employer] ??[address] NAVID SCOTT MD 06/20/2021 7:32 AM CDT 06/20/2021 7:34 AM CDT Perez Cervantes MD LAB - URINALYSIS ORD ERABLES [address] [address] * COMPREHENSIVE METABOLIC PANEL (06/20/2021 7:32 AM CDT) Glucose 86 65 - 99 mg/dL [facility] Comment: ? Fasting reference interval BUN 17 7 - 25 mg/dL [facility] Creatinine 0.82 0.50 - 1.05 mg/dL [facility] Comment: For patients >49 years of age, the reference limit for Creatinine is approximately 13% higher for people identified as -[place]. eGFR by MDRD 79 > OR = [...] 29 U/L [facility] Comment: Test Performed at: [facility] [address] [place], [place] ??[address] ASPEN HOLLINGSWORTH DO,MPH 06/20/2021 7:32 AM CDT 06/20/2021 7:34 AM CDT Perez Cervantes MD LAB - CHEMISTRY GERA DAVID [facility] Organization Address City/State/[facility] Co de Phone Number [facility] [address] [place] [address] documented in this encounter Visit Diagnoses Diagnosis Encounter for therapeutic drug monitoring- Primary Polyarthritis Unspecified polyarthropathy or polyarthritis, site unspecified documented in this encounter Care Teams Visualizer Relationship Specialty Start Date End Date Jaspreet Pearl MD PCP - General 08/08/18 03/26/24 documented as of this encounter
--- OUTSIDE RECORDS SUMMARY | 2024-11-13 17:47 | XMS_ITS | Encounter Summary ---
Author Organization [facility] Address [address] [facility] [place] [address] Care Team Providers Care Braker Passenger Train Name Role Phone Jaspreet Pearl MD Primary Care Provider + Encounter Details Date Type Department Care Team (Late st Contact Info) Description 11/08/2020 Orders Only [facility] [address] [place] [address] Perez Cervantes MD [address] [place] [address] 2L [place] [address] Polyarthritis; Encounter for therapeutic drug [...] Visit [facility] [address] [place] [address], [place] [phone] Perez Cervantes MD [address] [place] [address] 2L [place] [phone] documented as of this encounter Visit Diagnoses Diagnosis Polyarthritis Unspecified polyarthropathy or polyarthritis, site unspecified Encounter for therapeutic drug monitoring documented in this encounter Care Teams Braker Passenger Train Relationship Specialty Start Date End Date Jaspreet Pearl MD PCP - General 08/08/18 03/26/24 documented as of this encounter
--- OUTSIDE RECORDS SUMMARY | 2024-11-13 17:47 | XMS_ITS | Encounter Summary ---
Author Organization [facility] Address [address] [facility] [place] [address] Care Team Providers Care Fund Director Name Role Phone Jaspreet Pearl MD Primary Care Provider + Encounter Details Date Type Department Care Team (Late st Contact Info) Description 05/02/2021 Orders Only [facility] [address] [place] [phone] Perez Cervantes MD [address] [place] [address] 2[place] [phone] Social History Tobacco Use Types Packs/Day Years [...] Visit [facility] Rhe[facility]ology [address] [place] [phone] Perez Cervantes MD [address] [place] [address] 2L [place] [phone] documented as of this encounter Procedures Procedure [...] Comment: NO CULTURE INDICATED Test Performed at: [facility] [address] [place], [place] ??[address] ASPEN HOLLINGSWORTH DO,MPH 05/02/2021 7:33 AM CDT 05/02/2021 7:34 AM CDT Perez Cervantes MD LAB - MICROBIOLOGY O JOEY Performing Organization Address [facility] Co de Phone Number [facility] [address] [place] [address] * C-REACTIVE PROTEIN (05/02/2021 7:33 AM CDT) C-Reactive Protein 2.6 <8.0 mg/L [facility] Comment: Test Performed at: [facility] [place] [address] [place], [place] ??[address] ASPEN HOLLINGSWORTH DO,MPH 05/02/2021 7:33 AM CDT 05/02/2021 7:34 AM CDT Perez Cervantes MD LAB - CHEMISTRY GERA DAVID [facility] [address] [place] [address] * (ABNORMAL) CBC WITH DIFFERENTIAL (05/02/2021 7:33 [...] 0.5 % [facility] Comment: Test Performed at: [facility] ??[address] NAVID SCOTT MD 05/02/2021 7:33 AM CDT 05/02/2021 7:34 AM CDT Perez Cervantes MD LAB - HEMATOLOGY ORD ERABLES [facility] [id number] [place] [address] * ERYTHROCYTE SEDIMENTATION RATE (05/02/2021 7:33 AM CDT) Pathologist [facility] Erythrocyte Sedimentation Rate Westergren 11 < OR = 30 mm/h [facility] Comment: Test Performed at: [facility] ??[address] NAVID SCOTT MD 05/02/2021 7:33 AM CDT 05/02/2021 7:34 AM CDT Perez Cervantes MD LAB - HEMATOLOGY ORD ERABLES Performing Organization Address [facility] de Phone Number [facility] [address] [place] [address] * URINALYSIS W/MICROSCOPIC REFLEX TO CULTURE (05/02/2021 7:33 AM CDT) Color UA YELLOW YELLOW [facility] Appearance CLEAR CLEAR [facility] Specific [place] UA 1.009 1.001 - 1.035 [facility] pH [...] SEEN /LPF [facility] Comment: Test Performed at: [employer] [place] ??[address] ASPEN HOLLINGSWORTH DO,MPH Granular Casts [facility] Casts UA [facility] Yeast [facility] Comments [facility] Note [facility] Comment: Test Performed at: [facility] [address] [place], [place] ??[address] ASPEN HOLLINGSWORTH DO,MPH 05/02/2021 7:33 AM CDT 05/02/2021 7:34 AM CDT Perez Cervantes MD LAB - URINALYSIS ORD ERABLES Performing Organization Address [facility] Co de Phone Number [facility] [address] [place] [address] * (ABNORMAL) COMPREHENSIVE METABOLIC PANEL (05/02/2021 7:33 AM CDT) Glucose 93 65 - 99 mg/dL [facility] Comment: ? Fasting reference interval BUN 17 7 - 25 mg/dL [facility] Creatinine 0.87 0.50 - 1.05 mg/dL [facility] Comment: For patients >49 years of age, the reference limit for Creatinine is approximately 13% higher for people identified as -[place]. eGFR by MDRD 73 > OR = [...] 29 U/L [facility] Comment: Test Performed at: [facility] [address] [place], [place] ??[address] ASPEN HOLLINGSWORTH DO,MPH 05/02/2021 7:33 AM CDT 05/02/2021 7:34 AM CDT Perez Cervantes MD LAB - CHEMISTRY GERA DAVID [facility] Organization Address City/State/[facility] Co or Phone Number [facility] [address] [place] [address] documented in this encounter Visit Diagnoses Not on filedocumented in this encounter Care Teams Fund Director Relationship Specialty Start Date End Date Jaspreet Pearl MD PCP - General 08/08/18 03/26/24 documented as of this encounter
--- OUTSIDE RECORDS SUMMARY | 2024-11-13 17:47 | XMS_ITS | Encounter Summary ---
Author Organization [facility] Health Address [address] [facility] [place] [address] Care Team Providers Care Veterinarian Helper Name Role Phone Jaspreet Pearl MD Primary Care Provider + Reason for Visit * Reason Comments Follow-up Polyarthritis Encounter Details Date Type Department Care Team (Latest Contact Info) Description 12/08/2021 3:20 PM CITY SUPERVISOR Office Visit [facility] [address] [place] [address], [place] [address] Perez Cervantes MD [address] [place] [address] [place] [address] Polyarthritis (Primary Dx); Encounter for [...] Comments Blood Pressure 100/70 12/08/2021 3:37 PM CITY SUPERVISOR Pulse - - Temperature 36.6 ??C (97.8 ??F) 12/08/2021 3:37 PM CS T Respiratory Rate - - Oxygen Saturation - - Inhaled Oxygen Concentration - - Weight 79.4 kg (175 lb) 12/08/2021 3:37 PM CITY SUPERVISOR Height 172.7 cm (5' 8 ) 12/08/2021 3:37 PM CITY SUPERVISOR Body Mass Index 26.61 12/08/2021 3:37 PM CITY SUPERVISOR documented in this encounter Progress Notes * [...] No adenopathy/tenderness/thyromegaly (General) Unremarkable (Extrem) HNs DIPs/BNs PIPs/DETENTION prominence. Dupuytren's left palm. 1-3rd MCPs SfT0; Ischial tenderness; 2-5th MTPs SfT0; No donta synovitis. MS= bilat (Assess) Stable on present regimen (Plan) Continue same meds with labs q 8 weeks and yearly TB screening. RTO in 6 months. Discussed with patient. Perez Cervantes MD, FACP, FAAP, MACR Radiologist Diagnostic and Pediatric Rheumatology Professor of Internal Medicine,Pediatrics, and Molecular Immunology [facility] SUPERVISOR documented in this encounter Plan of Treatment Upcoming Encounters Date Type Department Care Team (Late st Contact Info) Description 03/27/2025 1:00 PM CDT Office Visit [facility] - Rheumatology [address] [place] [address], [place] [phone] Perez Cervantes MD [address] [place] [address] documented as of this encounter Visit Diagnoses Diagnosis Polyarthritis- Primary Unspecified polyarthropathy or polyarthritis, site unspecified Encounter for therapeutic drug monitoring documented in this encounter Care Teams Veterinarian Helper Relationship Specialty Start Date End Date Jaspreet Pearl MD PCP - General 08/08/18 03/26/24 documented as of this encounter
--- OUTSIDE RECORDS SUMMARY | 2024-11-13 17:47 | XMS_ITS | Encounter Summary ---
Author Organization [facility] Address [address] [facility] [place] [address] Care Team Providers Care Transfer Knitter Name Role Phone Jaspreet Pearl MD Primary [...] Visit [facility] Rhe[facility]ology [address] [place] [address], [place] [address] Perez Cervantes MD [address] [place] [address] [place] [address] documented as of this encounter Visit Diagnoses Not on filedocumented in this encounter Care Teams Transfer Knitter Relationship Specialty Start Date End Date Jaspreet Pearl MD PCP - General 08/08/18 03/26/24 documented as of this encounter
--- OUTSIDE RECORDS SUMMARY | 2024-11-13 17:47 | XMS_ITS | Encounter Summary ---
Author Organization [facility] Health Address [address] [facility] [place] [address] Care Team Providers Care Chief Of Anesthesiology Name Role Phone Jaspreet Pearl MD Primary Care Provider + Reason for Visit * Reason Comments Refill Request Encounter Details Date Type Department Care Team (Late st Contact Info) Description 02/24/2021 Refill [facility] [address] [place] [address], [place] [address] Perez Cervantes MD [address] [place] [address] [place] [address] Refill Request Social History Tobacco [...] 9:00 AM CDT Refill Request Hans Pascual NICK: 12/10/20 NOV scheduled: 06/09/2021 LRF: 02/26/20 Qty [...] Visit [facility] - Rheumatology [address] [place] [address], [place] [address] Perez Cervantes MD [address] [place] [address] [place] [phone] documented as of this encounter Visit Diagnoses Diagnosis Polyarthritis- Primary Unspecified polyarthropathy or polyarthritis, site unspecified documented in this encounter Care Teams Chief Of Anesthesiology Relationship Specialty Start Date End Date Jaspreet Pearl MD PCP - General 08/08/18 03/26/24 documented as of this encounter
--- OUTSIDE RECORDS SUMMARY | 2024-11-13 17:47 | XMS_ITS | Encounter Summary ---
Author Organization [facility] Address [address] [facility] [place] [address] Care Team Providers Care Corporate Security Officer Name Role Phone Jaspreet Pearl MD Primary Care Provider + Encounter Details Date Type Department Care Team (Late st Contact Info) Description 01/31/2021 Orders Only [facility] [address] [place] [address] Perez Cervantes MD [address] [place] [address] 2L [place] [address] Polyarthritis; Encounter for therapeutic drug [...] Visit [facility] [address] [place] [address], [facility] [place] [phone] Perez Cervantes MD [address] [place] [address] 2L [place] [phone] documented as of this encounter Procedures Procedure [...] [facility] Comment: ??CULTURE, URINE, ROUTINE ?Micro Number: ?[id number] ??Test Status: ? Final ??Specimen Source: ?? URINE ??Specimen Quality: ??Adequate ??Result: ?10,000-49,000 CFU/mL of Pediococcus acidilactici ? Susceptibility testing not routinely ? performed on this isolate. ??COMMENT: ? Additional non-predominating organism(s) isolated. ? These organisms, commonly found on external and ? internal genitalia, are considered colonizers. No ? further testing performed. REPORT COMMENT: FASTING:YES Test Performed at: [facility] [address] [place] [address] ??[phone] ASPEN HOLLINGWSORTH DO,MPH 02/21/2021 7:20 AM CDT 02/21/2021 7:21 AM CDT Perez Cervantes MD LAB - MICROBIOLOGY O JOEY Performing Organization Address [facility] Co de Phone Number [address] [address] * CULTURE URINE REFLEXED (02/21/2021 7:20 AM CDT) Reflexive Urine Culture See Below [facility] Comment: CULTURE INDICATED - RESULTS TO FOLLOW Test Performed at: [facility] [address] [place] [address] ??[phone] ASPEN HOLLINGSWORTH DO,MPH 02/21/2021 7:20 AM CDT 02/21/2021 7:21 AM CDT Perez Cervantes MD LAB - MICROBIOLOGY O JOEY Performing Organization Address [facility] Co de Phone Number [address] [address] * (ABNORMAL) URINALYSIS W/MICROSCOPIC REFLEX TO CULTURE (02/21/2021 7:20 AM CDT) Color UA YELLOW YELLOW [facility] Appearance CLOUDY(A) CLEAR [facility] Specific [place] UA 1.022 1.001 - 1.035 [facility] pH [...] SEEN /LPF [facility] Comment: Test Performed at: [facility] [address] [place], [place] ??[phone] ASPEN HOLLINGSWORTH DO,MPH Urine URINE SPECIMEN OBTAINED BY CLEAN CATCH PROCEDURE / Unknown 02/21/2021 7:20 AM CDT 02/21/2021 7:21 AM CDT Perez Cervantes MD LAB - URINALYSIS ORD ERABLES Performing Organization Address [facility] Co de Phone Number [address] [address] * C-REACTIVE PROTEIN (02/21/2021 7:20 AM CDT) C-Reactive Protein 5.3 <8.0 mg/L [facility] Comment: Test Performed at: [facility] [address] [place], [place] ??[phone] ASPEN HOLLINGSWORTH DO,MPH Blood BLOOD SPECIMEN / Unknown 02/21/2021 7:20 AM CDT 02/21/2021 7:21 AM CDT Perez Cervantes MD LAB - CHEMISTRY ORDE JOANN Performing Organization Address [facility] de Phone Number [address] [address] * ERYTHROCYTE SEDIMENTATION RATE (02/21/2021 7:20 AM CDT) Erythrocyte Sedimentation Rate Westergren 24 < OR = 30 mm/h [facility] Comment: Test Performed at: [facility] ??[phone] NAVID SCOTT MD Blood BLOOD SPECIMEN / Unknown 02/21/2021 7:20 AM CDT 02/21/2021 7:21 AM CDT Perez Cervantes MD LAB - HEMATOLOGY ORD ERABLES Performing Organization Address [facility] Co de Phone Number [address] [address] * (ABNORMAL) COMPREHENSIVE METABOLIC PANEL (02/21/2021 7:20 AM CDT) Glucose 82 65 - 99 mg/dL [facility] Comment: ? Fasting reference interval BUN 19 7 - 25 mg/dL [facility] Creatinine 0.79 0.50 - 1.05 mg/dL [facility] Comment: For patients >49 years of age, the reference limit for Creatinine is approximately 13% higher for people identified as -[place] Zeal[place]. eGFR by MDRD 83 > OR = [...] 29 U/L [facility] Comment: Test Performed at: [facility] [place] [address] [place], [place] ??[phone] ASPEN HOLLINGSWORTH DO,MPH Blood BLOOD SPECIMEN / Unknown 02/21/2021 7:20 AM CDT 02/21/2021 7:21 AM CDT Perez Cervantes MD LAB - CHEMISTRY GERA DAVID [facility] [address] [place] [address] * CBC WITH DIFFERENTIAL (02/21/2021 7:20 AM CDT) [facility] White Blood Cell Count 4.6 3.8 - [...] 0.2 % [facility] Comment: Test Performed at: [facility] ??[phone] NAVID SCOTT MD Blood BLOOD SPECIMEN / Unknown 02/21/2021 7:20 AM CDT 02/21/2021 7:21 AM CDT Perez Cervantes MD LAB - HEMATOLOGY ORD ERABLES [address] [address] documented in this encounter Visit Diagnoses Diagnosis Polyarthritis Unspecified polyarthropathy or polyarthritis, site unspecified Encounter for therapeutic drug monitoring documented in this encounter Care Teams Corporate Security Officer Relationship Specialty Start Date End Date Jaspreet Pearl MD PCP - General 08/08/18 03/26/24 documented as of this encounter
--- OUTSIDE RECORDS SUMMARY | 2024-11-13 17:47 | XMS_ITS | Encounter Summary ---
Author Organization [facility] Address [address] [facility] [place] [address] Care Team Providers Care Assessor Name Role Phone Jaspreet Pearl MD Primary Care Provider + Reason for Visit * Reason Comments Arthritis Encounter Details Date Type Department Care Team (Late st Contact Info) Description 06/09/2021 3:00 PM CDT Office Visit [facility] [address] [place] [address], [place] [address] Perez Cervantes MD [address] [place] [address] [place] [address] Encounter for therapeutic drug monitoring [...] No adenopathy/thyromegaly/tenderness (General) Unremarkable (Extrem) HNs DIPs/BNs PIps/PRISON prominence; Dupuytren's palm left hand;1-3rd MCPs SfT0; Tenderness bilateral ischial area. No direct trochanteric tenderness. Hips S0TO; with no pain on Int/Ext rotation. 2-5th MTPs S1T1; MS= bilat (Assess) Clinically stable; Monitor MTPs (Plan) Continue present meds with CXR/TB screening now. Continue labs q 8 weeks. RTO in 6 months. Perez Cervantes MD, FACP, FAAP, MACR Instructor Extension Work and Pediatric Rheumatology Professor of Internal Medicine,Pediatrics, and Molecular Immunology [facility] documented in this encounter Plan of Treatment Upcoming Encounters Date Type Department Care Team (Late st Contact Info) Description 03/27/2025 1:00 PM CDT Office Visit [facility] - Rheumatology [address] [facility], [place] [address] Perez Cervantes MD [facility] [facility] 2L [place] [address] Scheduled Orders Name Type Priority [...] providers and patients using the following websites: https://www.[email or web address]/home/Covid-19/HCP/antibody/ fact-sheet8 ?? https://www.[employer].Amirite.com/home/Covid-19/Patients/ antibody/fact-sheet8 ?? Healthcare Providers: For additional information please refer to: http://education.FOBO/faq/TPO475 (This link is being provided for informational/ educational purposes only.) ?? This test has been authorized by the FDA under an Emergency Use Authorization (EUA) for use by authorized laboratories. The FDA authorized labeling is available on the [employer] website: www.3scale/Covid19. Test Performed at: [facility] [id number] [place] [address] ??[phone] ASPEN HOLLINGSWORTH DO,MPH Blood BLOOD SPECIMEN / Unknown 06/20/2021 7:32 AM CDT 06/20/2021 7:34 AM CDT Perez Cervantes MD LAB - CHEMISTRY GERA DAVID [facility] Organization Address City/State/ZIP Co de Phone Number [place] [address] [place] [address] * XR CHEST 2VW (06/09/2021 3:51 PM CDT) Anatomical Region Laterality Modality Chest Radiographic Corin ging 06/09/2021 3:50 PM CDT Impressions 06/10/2021 12:41 PM CDT FINDINGS/IMPRESSION: There is no focal consolidation, pleural effusion, or pneumothorax. The cardiomediastinal silhouette is normal. The visible bony thorax is intact. Dictated by Maile Luque MD (vice president commercial bank). Dr. ANA LUISA Osorio M.D. have personally [...] thorax isintact. Dictated by Maile Luque MD (vice president commercial bank). Dr. ANA LUISA Osorio M.D. have personally reviewed and interpreted this examination/study. This report was electronically signed by ANA LUISA KAUFMAN M.D. on 06/10/2021 12:41 PM . Perez Cervantes MD DIAGNOSTIC IMAGING O RDERABLES documented in this encounter Visit Diagnoses Diagnosis Encounter for therapeutic drug monitoring- Primary Encounter for therapeutic drug monitoring documented in this encounter Care Teams Assessor Relationship Specialty Start Date End Date Jaspreet Pearl MD PCP - General 08/08/18 03/26/24 documented as of this encounter
--- OUTSIDE RECORDS SUMMARY | 2024-11-13 17:47 | XMS_ITS | Encounter Summary ---
Author Organization [facility] Address [address] [facility] [place] [address] Care Team Providers Care Dining Room Cashier Name Role Phone Jaspreet Pearl MD Primary Care Provider + Encounter Details Date Type Department Care Team (Late Contact Info) Description 10/31/2021 Orders Only [facility] [address] [place] [phone] Perez Cervantes MD [address] [place] [address] 2L [place] [phone] Polyarthritis ; Encounter for therapeutic drug monitoring [...] Visit [facility] [address] [place] [phone] Perez Cervantes MD [address] [place] [address] 2L [place] [phone] documented as of this encounter Procedures Procedure Name Priority Date/Time Associated Diagnosis Comments CULTURE URINE REFLEXED II 10/31/2021 7:32 AM PAYROLL ACCOUNTING MANAGER URINALYSIS W/MICROSCOPIC REFLEX TO CULTURE 10/31/2021 7:32 AM PAYROLL ACCOUNTING MANAGER C-REACTIVE PROTEIN 10/31/2021 7: 32 AM PAYROLL ACCOUNTING MANAGER CULTURE URINE 10/31/2021 7:32 AM PAYROLL ACCOUNTING MANAGER ERYTHROCYTE SEDIMENTATION RATE 10/31/2021 7:32 AM PAYROLL ACCOUNTING MANAGER CBC W AUTO DIFFERENTIAL 10/31/2021 7:32 AM PAYROLL ACCOUNTING MANAGER COMPREHENSIVE METABOLIC PANEL 10/31/2021 7:32 AM PAYROLL ACCOUNTING MANAGER documented in this encounter Results * CULTURE URINE (10/31/2021 7:32 AM PAYROLL ACCOUNTING MANAGER) Culture [facility] Comment: ??CULTURE, URINE, ROUTINE ?Micro Number: ?[id number] ??Test Status: ? Final ??Specimen Source: ?? Urine ??Specimen Quality: ??Adequate ??Result: ?Growth of mixed erin was isolated, suggesting ? probable contamination. No further testing will ? be performed. If clinically indicated, ? recollection using a method to minimize ? contamination, with prompt transfer to Urine ? Culture Transport Tube, is recommended. Test Performed at: [facility] ??[phone] NAVID SCOTT MD 10/31/2021 7:32 AM PAYROLL ACCOUNTING MANAGER 10/31/2021 7:34 AM PAYROLL ACCOUNTING MANAGER Perez Cervantes MD LAB - MICROBIOLOGY O JOEY Performing Organization Address [facility] de Phone Number [address] [address] * CULTURE URINE REFLEXED II (10/31/2021 7:32 AM PAYROLL ACCOUNTING MANAGER) Pathologist [facility] Reflexive Urine Culture See Below [facility] Comment: CULTURE INDICATED - RESULTS TO FOLLOW Test Performed at: [facility] ??[phone] NAVID SCOTT MD 10/31/2021 7:32 AM PAYROLL ACCOUNTING MANAGER 10/31/2021 7:34 AM PAYROLL ACCOUNTING MANAGER Perez Cervantes MD LAB - MICROBIOLOGY O JOEY Performing Organization Address [facility] de Phone Number [address] [address] * C-REACTIVE PROTEIN (10/31/2021 7:32 AM PAYROLL ACCOUNTING MANAGER) Pathologist [facility] C-Reactive Protein 6.1 <8.0 mg/L [facility] Comment: Test Performed at: [facility] [address] ??[address] ASPEN HOLLINGSWORTH DO,MPH 10/31/2021 7:32 AM PAYROLL ACCOUNTING MANAGER 10/31/2021 7:34 AM PAYROLL ACCOUNTING MANAGER Perez Cervantes MD LAB - CHEMISTRY GERA DAVID Performing Organization Address [facility] de Phone Number [facility] [address] [place] [address] * (ABNORMAL) CBC WITH DIFFERENTIAL (10/31/2021 7:32 AM PAYROLL ACCOUNTING MANAGER) Pathologist [facility] White Blood Cell Count 3.7(L) 3.8 - [...] 0.3 % [facility] Comment: Test Performed at: [facility] ??[phone] NAVID SCOTT MD 10/31/2021 7:32 AM PAYROLL ACCOUNTING MANAGER 10/31/2021 7:34 AM PAYROLL ACCOUNTING MANAGER Perez Cervantes MD LAB - HEMATOLOGY ORD ERABLES [address] [address] * (ABNORMAL) URINALYSIS W/MICROSCOPIC REFLEX TO CULTURE (10/31/2021 7:32 AM PAYROLL ACCOUNTING MANAGER) Color UA DARK YELLOW YELLOW [facility] Appearance CLEAR CLEAR [facility] Specific [place] UA 1.019 1.001 - 1.035 [facility] pH [...] SEEN /LPF [facility] Comment: Test Performed at: [facility] ??[phone] NAVID SCOTT MD Granular Casts [facility] Casts UA [facility] Yeast [facility] Comments QUEST Note QUEST Comment: Test Performed at: [facility] ??[phone] NAVID SCOTT MD 10/31/2021 7:32 AM PAYROLL ACCOUNTING MANAGER 10/31/2021 7:34 AM PAYROLL ACCOUNTING MANAGER Perez Cervantes MD LAB - URINALYSIS ORD ERABLES Performing Organization Address [facility] Co de Phone Number [address] [address] * ERYTHROCYTE SEDIMENTATION RATE (10/31/2021 7:32 AM PAYROLL ACCOUNTING MANAGER) Erythrocyte Sedimentation Rate Westergren 14 < OR = 30 mm/h [facility] Comment: Test Performed at: [facility] ??[address] NAVID SCOTT MD 10/31/2021 7:32 AM PAYROLL ACCOUNTING MANAGER 10/31/2021 7:34 AM PAYROLL ACCOUNTING MANAGER Perez Cervantes MD LAB - HEMATOLOGY ORD ERABLES Performing Organization Address [facility] de Phone Number [address] [address] * COMPREHENSIVE METABOLIC PANEL (10/31/2021 7:32 AM PAYROLL ACCOUNTING MANAGER) Glucose 76 65 - 99 mg/dL [facility] Comment: ? Fasting reference interval BUN 15 7 - 25 mg/dL [facility] Creatinine 0.75 0.50 - 1.05 mg/dL [facility] Comment: For patients >49 years of age, the reference limit for Creatinine is approximately 13% higher for people identified as -Dominican. eGFR by MDRD 88 > OR = [...] 29 U/L [facility] Comment: Test Performed at: [facility] ??[phone] ASPEN HOLLINGSWORTH DO,MPH 10/31/2021 7:32 AM PAYROLL ACCOUNTING MANAGER 10/31/2021 7:34 AM PAYROLL ACCOUNTING MANAGER Perez Cervantes MD LAB - CHEMISTRY GERA DAVID [facility] Organization Address City/State/[facility] Co de Phone Number [facility] [address] [place] [address] documented in this encounter Visit Diagnoses Diagnosis Polyarthritis- Primary Unspecified polyarthropathy or polyarthritis, site unspecified Encounter for therapeutic drug monitoring documented in this encounter Care Teams Dining Room Cashier Relationship Specialty Start Date End Date Jaspreet Pearl MD PCP - General 08/08/18 03/26/24 documented as of this encounter
--- OUTSIDE RECORDS SUMMARY | 2024-11-13 17:47 | XMS_ITS | Encounter Summary ---
Author Organization [facility] Address [address] [facility] [place] [address] Care Team Providers Care Investigator Internal Revenue Name Role Phone Jaspreet Pearl MD Primary Care Provider + Encounter Details Date Type Department Care Team (Late Contact Info) Description 08/29/2021 Orders Only [facility] [address] [place] [phone] Perez Cervantes MD [address] [place] [address] 2[place] [phone] Encounter for therapeutic drug monitoring ; Polyarthritis [...] Visit [facility] [address] [place] [phone] Perez Cervantes MD [address] [place] [address] 2L [place] [phone] documented as of this encounter Procedures Procedure [...] Comment: NO CULTURE INDICATED Test Performed at: [facility] ??[phone] NAVID SCOTT MD 08/29/2021 7:28 AM CDT 08/29/2021 7:28 AM CDT Perez Cervantes MD LAB - MICROBIOLOGY O RDERABLES [address] [address] * C-REACTIVE PROTEIN (08/29/2021 7:28 AM CDT) C-Reactive Protein 2.5 <8.0 mg/L [facility] Comment: REPORT COMMENT: FASTING:YES Test Performed at: [facility] [place] [address] [place], [place] ??[address] ASPEN HOLLINGSWORTH DO,MPH 08/29/2021 7:28 AM CDT 08/29/2021 7:28 AM CDT Perez Cervantes MD LAB - CHEMISTRY GERA DAVID Performing Organization Address [facility] Co de Phone Number [address] [address] * (ABNORMAL) CBC WITH DIFFERENTIAL (08/29/2021 7:28 AM CDT) [facility] White Blood Cell Count 5.0 3.8 - [...] 0.2 % [facility] Comment: Test Performed at: [facility] ??[phone] NAVID SCOTT MD 08/29/2021 7:28 AM CDT 08/29/2021 7:28 AM CDT Perez Cervantes MD LAB - HEMATOLOGY JUVENTINO SAMAYOA Performing Organization Address [facility] Co de Phone Number [address] [address] * ERYTHROCYTE SEDIMENTATION RATE (08/29/2021 7:28 AM CDT) [facility] Erythrocyte Sedimentation Rate Westergren 19 < OR = 30 mm/h [facility] Comment: Test Performed at: [facility] ??[phone] NAVID SCOTT MD 08/29/2021 7:28 AM CDT 08/29/2021 7:28 AM CDT Perez Cervantes MD LAB - HEMATOLOGY ORD ERABLES Performing Organization Address [facility] Co de Phone Number [facility] [address] [place] [address] * URINALYSIS W/MICROSCOPIC REFLEX TO CULTURE (08/29/2021 7:28 AM CDT) Color UA YELLOW YELLOW [facility] Appearance CLEAR CLEAR [facility] Specific [place] UA 1.014 1.001 - 1.035 [facility] pH [...] SEEN /LPF [facility] Comment: Test Performed at: [facility] ??[phone] NAVID SCOTT MD Granular Casts [facility] Casts UA [facility] Yeast [facility] Comments [facility] Note [facility] Comment: Test Performed at: [facility] [address] [place], [place] ??[address] ASPEN HOLLINGSWORTH DO,MPH 08/29/2021 7:28 AM CDT 08/29/2021 7:28 AM CDT Perez Cervantes MD LAB - URINALYSIS ORD ERABLES Performing Organization Address [facility] Co de Phone Number [facility] [address] [place] [address] * COMPREHENSIVE METABOLIC PANEL (08/29/2021 7:28 AM CDT) Glucose 82 65 - 99 mg/dL [facility] Comment: ? Fasting reference interval BUN 13 7 - 25 mg/dL [facility] Creatinine 0.73 0.50 - 1.05 mg/dL [facility] Comment: For patients >49 years of age, the reference limit for Creatinine is approximately 13% higher for people identified as -Afghan. eGFR by MDRD 91 > OR = [...] 29 U/L [facility] Comment: Test Performed at: [facility] [address] [place] [address] ??[phone] ASPEN HOLLINGSWORTH DO,MPH 08/29/2021 7:28 AM CDT 08/29/2021 7:28 AM CDT Perez Cervantes MD LAB - CHEMISTRY GERA DAVID [facility] Organization Address City/State/[facility] Co ia Phone Number [facility] [address] [place] [address] documented in this encounter Visit Diagnoses Diagnosis Encounter for therapeutic drug monitoring- Primary Polyarthritis Unspecified polyarthropathy or polyarthritis, site unspecified documented in this encounter Care Teams Investigator Internal Revenue Relationship Specialty Start Date End Date Jaspreet Pearl MD PCP - General 08/08/18 03/26/24 documented as of this encounter
--- OUTSIDE RECORDS SUMMARY | 2024-11-13 17:47 | XMS_ITS | Encounter Summary ---
Author Organization [facility] Address [address] [facility] [place] [address] Care Team Providers Care Director Of Special Education Name Role Phone Jaspreet Pearl MD Primary Care Provider + Encounter Details Date Type Department Care Team (Latest Contact Info) Description 12/10/2020 1:45 PM SUPERINTENDENT DISTRIBUTION - 12/10/2020 11:59 PM SUPERINTENDENT DISTRIBUTION Hospital Encounter [facility] [address] [place] [address] Perez Cervantes MD [address] [place] [address] Discharge Disposition: Home or Self [...] COVID-19? No / Unsure 12/10/2020 1:40 PM SUPERINTENDENT DISTRIBUTION documented as of this encounter Medications at Time of Discharge Medication Sig Dispensed Refills Start Date End Date Azelastine HCl 137 MCG/SPRAY SOLN [place] 2 sprays into the nose 2 times [...] Description 03/27/2025 1:00 PM CDT Office Visit [facility] - Rheumatology [address] [facility], [place] [phone] Perez Cervantes MD [facility] 2L [place] [address] documented as of this encounter Procedures Procedure Name Priority Date/Time Associated Diagnosis Comments XR FOOT RIGHT 2VW Routine 12/10/2020 1:5 9 PM SUPERINTENDENT DISTRIBUTION Polyarthritis XR FOOT LEFT 2VW Routine 12/10/2020 1:59 PM SUPERINTENDENT DISTRIBUTION Polyarthritis documented in this encounter Results * XR FOOT LEFT 2VW (12/10/2020 1:59 PM SUPERINTENDENT DISTRIBUTION) Anatomical Region Laterality Modality Ankle / Foot Radiographic Corin ging 12/10/2020 2:43 PM SUPERINTENDENT DISTRIBUTION Impressions 12/10/2020 3:00 PM SUPERINTENDENT DISTRIBUTION IMPRESSION: No acute fracture, dislocation, or significant arthritis identified. Dictated by Julián De Leon MD (radiology practitioner assistant). I, Dr. DINH TOLEDO MD have personally reviewed and interpreted this examination/study. This report was electronically signed by DINH TOLEDO MD ??on 12/10/2020 3:00 PM . Narrative 12/10/2020 3:00 PM SUPERINTENDENT DISTRIBUTION EXAMINATION: XR FOOT RIGHT 2VW, XR FOOT [...] identified. Dictated by Julián De Leon MD (radiology practitioner assistant). Dr. DINH Osorio MD have personally reviewed and interpreted this examination/study. This report was electronically signed by DINH TOLEDO MD on12/10/2020 3:00 PM . Perez Cervantes MD DIAGNOSTIC IMAGING O RDERABLES * XR FOOT RIGHT 2VW (12/10/2020 1:59 PM SUPERINTENDENT DISTRIBUTION) Anatomical Region Laterality Modality Ankle / Foot Radiographic Corin ging 12/10/2020 2:43 PM SUPERINTENDENT DISTRIBUTION Impressions 12/10/2020 3:00 PM SUPERINTENDENT DISTRIBUTION IMPRESSION: No acute fracture, dislocation, or significant arthritis identified. Dictated by Julián De Leon MD (radiology practitioner assistant). Dr. DINH Osorio MD have personally reviewed and interpreted this examination/study. This report was electronically signed by IDNH TOLEDO MD ??on 12/10/2020 3:00 PM . Narrative 12/10/2020 3:00 PM SUPERINTENDENT DISTRIBUTION EXAMINATION: XR FOOT RIGHT 2VW, XR FOOT [...] identified. Dictated by Julián De Leon MD (radiology practitioner assistant). I, Dr. DINH TOLEDO MD have personally reviewed and interpreted this examination/study. This report was electronically signed by DINH TOLEDO MD on12/10/2020 3:00 PM . Perez Cervantes MD DIAGNOSTIC IMAGING O RDERABLES documented in this encounter Visit Diagnoses Diagnosis Polyarthritis Unspecified polyarthropathy or polyarthritis, site unspecified documented in this encounter Care Teams Director Of Special Education Relationship Specialty Start Date End Date Jaspreet Pearl MD PCP - General 08/08/18 03/26/24 documented as of this encounter
--- OUTSIDE RECORDS SUMMARY | 2024-11-13 17:47 | XMS_ITS | Encounter Summary ---
Author Organization [facility] Health Address [address] [facility] [place] [address] Care Team Providers Care Floor Molder Name Role Phone Jaspreet Pearl MD Primary Care Provider + Reason for Visit * Reason Onset Date Comments Rx Authorization 01/01/2021 Enbrel approval Encounter Details Date Type Department Care Team (Late st Contact Info) Description 01/01/2021 Telephone [facility] [address] [place] [address], [facility] [place] [address] Perez Cervantes MD [address] [place] [address] [place] [address] Rx Authorization (Enbrel approval) Social [...] COVID-19? No / Unsure 12/10/2020 1:40 PM ASSISTANT WINEMAKER documented as of this encounter Miscellaneous Notes * Telephone Encounter - Vidya Kaye RN - 01/01/2021 2:44 PM CST TANYA completed with [facility] via cover [employer] portal. Received fax confirmation from [employer] approving Enbrel 50mg/ml syringe, 4 syringes/28 days, effective 01/23/2021-01/23/2022. Case #:[id number] STANT WINEMAKER documented in this encounter Plan of Treatment Upcoming Encounters Date Type Department Care Team (Late st Contact Info) Description 03/27/2025 1:00 PM CDT Office Visit [facility] [address] [place] [address], [place] [address] Perez Cervantes MD [address] [place] [address] [place] [address] documented as of this encounter Visit Diagnoses Not on filedocumented in this encounter Care Teams Floor Molder Relationship Specialty Start Date End Date Jaspreet Pearl MD PCP - General 08/08/18 03/26/24 documented as of this encounter
--- OUTSIDE RECORDS SUMMARY | 2024-11-13 17:47 | XMS_ITS | Encounter Summary ---
Author Organization [facility] Address [address] [place] [address] Care Team Providers Care Automotive Internet Sales Manager Name Role Phone Jaspreet Pearl MD Primary Care Provider + Reason for Visit * Reason Onset Date Comments MEDICATION REFILL 05/05/2021 Encounter Details Date Type Department Care Team (Late Contact Info) Description 05/05/2021 Refill [facility] [address] [place] [address] Perez Cervantes MD [address] [place] [address] 2L [place] [phone] MEDICATION REFILL Social History Tobacco Use Types [...] Office Visit [facility] Rheumatology [address] [place] [address], [place] [phone] Perez Cervantes MD [address] [place] [address] 2L [place] [phone] documented as of this encounter Visit Diagnoses Not on filedocumented in this encounter Care Teams Automotive Internet Sales Manager Relationship Specialty Start Date End Date Jaspreet Pearl MD PCP - General 08/08/18 03/26/24 documented as of this encounter
--- OUTSIDE RECORDS SUMMARY | 2024-11-13 17:47 | XMS_ITS | Encounter Summary ---
Author Organization [facility] Address [address] [facility] [place] [address] Care Team Providers Care Clay Dry Press Helper Name Role Phone Jaspreet Pearl MD Primary Care Provider + Encounter Details Date Type Department Care Team (Late Contact Info) Description 12/20/2020 Orders Only [facility] [address] [place] [address] Perez Cervantes MD [address] [place] [address] [place] [address] Polyarthritis; Encounter for therapeutic drug [...] COVID-19? No / Unsure 12/10/2020 1:40 PM ABSORPTION AND ADSORPTION ENGINEER documented as of this encounter Plan of Treatment Upcoming Encounters Date Type Department Care Team (Late Contact Info) Description 03/27/2025 1:00 PM CDT Office Visit [facility] [address] [place] [address], [facility] [place] [address] Perez Cervantes MD [address] [place] [address] documented as of this encounter Procedures Procedure Name Priority Date/Time Associated Diagnosis Comments CULTURE URINE REFLEXED I 12/20/2020 11:30 AM ABSORPTION AND ADSORPTION ENGINEER URINALYSIS W/MICROSCOPIC REFLEX TO CULTURE Routine 12/20/2020 11:30 AM ABSORPTION AND ADSORPTION ENGINEER Polyarthritis Encounter for therapeutic drug monitoring C-REACTIVE PROTEIN Routine 12/20/2020 11 :30 AM ABSORPTION AND ADSORPTION ENGINEER Polyarthritis Encounter for therapeutic drug monitoring ERYTHROCYTE SEDIMENTATION RATE Routine 12/20/2020 11:30 AM ABSORPTION AND ADSORPTION ENGINEER Polyarthritis Encounter for therapeutic drug monitoring CBC W AUTO DIFFERENTIAL Routine 12/20/2020 11:30 AM ABSORPTION AND ADSORPTION ENGINEER Polyarthritis Encounter for therapeutic drug monitoring COMPREHENSIVE METABOLIC PANEL Routine 12/20/2020 11:30 AM ABSORPTION AND ADSORPTION ENGINEER Polyarthritis Encounter for therapeutic drug monitoring documented in this encounter Results * CULTURE URINE REFLEXED I (12/20/2020 11:30 AM ABSORPTION AND ADSORPTION ENGINEER) Reflexive Urine Culture See Below [facility] Comment: NO CULTURE INDICATED Test Performed at: [facility] [address] [place] ??[phone] ASPEN HOLLINGSWORTH DO,MPH 12/20/2020 11:3 0 AM ABSORPTION AND ADSORPTION ENGINEER 12/20/2020 11:31 AM ABSORPTION AND ADSORPTION ENGINEER Perez Cervantes MD LAB - MICROBIOLOGY O RDERABLES [facility] [address] [place] [address] * (ABNORMAL) URINALYSIS W/MICROSCOPIC REFLEX TO CULTURE (12/20/2020 11:30 AM ABSORPTION AND ADSORPTION ENGINEER) Color UA YELLOW YELLOW [facility] Appearance CLEAR CLEAR [facility] Specific [place] UA 1.021 1.001 - 1.035 [facility] pH [...] SEEN /LPF [facility] Comment: Test Performed at: [facility] [address] [place], [place] ??[address] ASPEN HOLLINGSWORTH DO,MPH Urine URINE SPECIMEN OBTAINED BY CLEAN CATCH PROCEDURE / Unknown 12/20/2020 11:30 AM ABSORPTION AND ADSORPTION ENGINEER 12/20/2020 11:31 AM ABSORPTION AND ADSORPTION ENGINEER Perez Cervantes MD LAB - URINALYSIS ORD ERABLES Performing Organization Address [facility] Co de Phone Number [facility] [phone] [place] [address] * C-REACTIVE PROTEIN (12/20/2020 11:30 AM ABSORPTION AND ADSORPTION ENGINEER) C-Reactive Protein 3.4 <8.0 mg/L [facility] Comment: REPORT COMMENT: FASTING:YES Test Performed at: [facility] [address] ??[address] ASPEN HOLLINGSWORTH DO,MPH Blood BLOOD SPECIMEN / Unknown 12/20/2020 11:30 AM ABSORPTION AND ADSORPTION ENGINEER 12/20/2020 11:31 AM ABSORPTION AND ADSORPTION ENGINEER Perez Cervantes MD LAB - CHEMISTRY ORDE RABLES Performing Organization Address [facility] Co de Phone Number [facility] [address] [place] [address] * ERYTHROCYTE SEDIMENTATION RATE (12/20/2020 11:30 AM ABSORPTION AND ADSORPTION ENGINEER) Erythrocyte Sedimentation Rate Westergren 11 < OR = 30 mm/h [facility] Comment: Test Performed at: [facility] [address] ??[address] ASPEN HOLLINGSWORTH DO,MPH Blood BLOOD SPECIMEN / Unknown 12/20/2020 11:30 AM ABSORPTION AND ADSORPTION ENGINEER 12/20/2020 11:31 AM ABSORPTION AND ADSORPTION ENGINEER Perez Cervantes MD LAB - HEMATOLOGY [place] [facility] [address] [place] [address] * COMPREHENSIVE METABOLIC PANEL (12/20/2020 11:30 AM ABSORPTION AND ADSORPTION ENGINEER) Glucose 80 65 - 99 mg/dL [facility] Comment: ? Fasting reference interval BUN 13 7 - 25 mg/dL [facility] Creatinine 0.80 0.50 - 1.05 mg/dL [facility] Comment: For patients >49 years of age, the reference limit for Creatinine is approximately 13% higher for people identified as -Anguillan. eGFR by MDRD 82 > OR = [...] 29 U/L [facility] Comment: Test Performed at: [facility] [address] ??[phone] ASPEN HOLLINGSWORTH DO,MPH Blood BLOOD SPECIMEN / Unknown 12/20/2020 11:30 AM ABSORPTION AND ADSORPTION ENGINEER 12/20/2020 11:31 AM ABSORPTION AND ADSORPTION ENGINEER Perez Cervantes MD LAB - CHEMISTRY GERA DAVID [facility] [address] [place] [address] * CBC WITH DIFFERENTIAL (12/20/2020 11:30 AM ABSORPTION AND ADSORPTION ENGINEER) White Blood Cell Count 4.9 3.8 - [...] 0.4 % [facility] Comment: Test Performed at: [facility] [address] [place] ??[address] ASPEN HOLLINGSWORTH DO,MPH Blasts [facility] nRBC [facility] Comments [facility] Comment: Test Performed at: [facility] [place] [address] [place] ??[address] ASPEN HOLLINGSWORTH DO,MPH Blood BLOOD SPECIMEN / Unknown 12/20/2020 11:30 AM ABSORPTION AND ADSORPTION ENGINEER 12/20/2020 11:31 AM ABSORPTION AND ADSORPTION ENGINEER Peerz Cervantes MD LAB - HEMATOLOGY ORD ERABLES [facility] [address] [place] [address] documented in this encounter Visit Diagnoses Diagnosis Polyarthritis Unspecified polyarthropathy or polyarthritis, site unspecified Encounter for therapeutic drug monitoring documented in this encounter Care Teams Clay Dry Press Helper Relationship Specialty Start Date End Date Jaspreet Pearl MD PCP - General 08/08/18 03/26/24 documented as of this encounter
--- OUTSIDE RECORDS SUMMARY | 2024-11-13 17:47 | XMS_ITS | Encounter Summary ---
Author Organization [facility] Address [address] [place] [address] Care Team Providers Care Aerotriangulation Specialist Name Role Phone Jaspreet Pearl MD Primary Care Provider + Encounter Details Date Type Department Care Team (Late Contact Info) Description 09/27/2020 Orders Only [facility] [address] [place] [address] Perez Cervantes MD [address] [place] [address] 2L [place] [address] Polyarthritis; Encounter for therapeutic drug [...] Visit [facility] [address] [place] [address], [place] [phone] Perez Cervantes MD [address] [place] [address] 2L [place] [address] documented as of this encounter Procedures Procedure Name Priority Date/Time Associated Diagnosis Comments CULTURE URINE REFLEXED I 10/18/2020 7:16 AM TRAFFIC ADMINISTRATOR documented in this encounter Results * CULTURE URINE REFLEXED I (10/18/2020 7:16 AM TRAFFIC ADMINISTRATOR) Reflexive Urine Culture See Below [facility] Comment: NO CULTURE INDICATED Test Performed at: [facility] [address] [place] [address] ??[phone] ASPEN HOLLINGSWORTH DO,MPH 10/18/2020 7:16 AM TRAFFIC ADMINISTRATOR 10/18/2020 7:17 AM TRAFFIC ADMINISTRATOR Perez Cervantes MD LAB - MICROBIOLOGY O RDERABLES [facility] [address] [place] [address] documented in this encounter Visit Diagnoses Diagnosis Polyarthritis Unspecified polyarthropathy or polyarthritis, site unspecified Encounter for therapeutic drug monitoring Encounter for long-term (current) use of medications Encounter for long-term (current) use of other medications documented in this encounter Care Teams Aerotriangulation Specialist Relationship Specialty Start Date End Date Jaspreet Pearl MD PCP - General 08/08/18 03/26/24 documented as of this encounter
--- OUTSIDE RECORDS SUMMARY | 2024-11-13 17:47 | XMS_ITS | Encounter Summary ---
Author Organization [facility] Health Address [address] [facility] [place] [address] Care Team Providers Care Manager Technology Name Role Phone Jaspreet Pearl MD Primary Care Provider + Reason for Visit * Reason Onset Date Comments Medication Prior Auth Request 01/07/2022 En brel syringes Encounter Details Date Type Department Care Team (Late st Contact Info) Description 01/07/2022 Telephone [facility], [place] [address] Perez Cervantes MD [address] [place] [address] [place] [address] Medication Prior Auth Request (Enbrel [...] 01/13/2022 2:52 PM CST PA completed via gamigo portal with [employer] [place]. Received fax approval from [employer] for Enbrel 50mg/ml syringes, 4 syringes/28 days, effective 01/24/2022-01/24/2023 (current auth expires 01/23/22). Case # and Cover my meds Villed[place]: [id number] ALT HEATER OPERATOR * Telephone Encounter - Lory Collier LPN - 01/07/2022 9:15 AM ASPHALT HEATER OPERATOR Received fax notification from [employer] approving Enbrel syringes after the current PA expires (currently in place through 01/23/2022)), 01/24/2022 - 01/24/2023 form 4 syringes per 28 days. Case #: [id number]. ALT HEATER OPERATOR documented in this encounter Plan of Treatment Upcoming Encounters Date Type Department Care Team (Late st Contact Info) Description 03/27/2025 1:00 PM CDT Office Visit [facility] Rheumatology [address] [place] [address], [place] [address] Perez Cervantes MD [address] [place] [address] [place] [address] documented as of this encounter Visit Diagnoses Not on filedocumented in this encounter Care Teams Manager Technology Relationship Specialty Start Date End Date Jaspreet Pearl MD PCP - General 08/08/18 03/26/24 documented as of this encounter
--- OUTSIDE RECORDS SUMMARY | 2024-11-13 17:47 | XMS_ITS | Encounter Summary ---
Author Organization [facility] Address [address] [facility] [place] [address] Care Team Providers Care English Faculty Member Name Role Phone Jaspreet Pearl MD Primary Care Provider + Reason for Visit * Reason Onset Date Comments Results 02/24/2021 Encounter Details Date Type Department Care Team (Late st Contact Info) Description 02/24/2021 Telephone [facility] [address] [place] [address], [place] [address] Perez Cervantes MD [address] [place] [address] [place] [address] Results Social History Tobacco Use [...] Telephone Encounter - Perez Cervantes MD - 02/24/2021 11:04 AM CDT Mild elvation in LFTs. Tore a meniscus and has been taking dises of acetaminophen. Will check labs in one week. Discussed with patient. Perez Cervantes MD, FACP, FAAP, MACR Health Promoter and Pediatric Rheumatology Professor of Internal Medicine,Pediatrics, and Molecular Immunology [facility] S documented in this encounter Plan of Treatment Upcoming Encounters Date Type Department Care Team (Late st Contact Info) Description 03/27/2025 1:00 PM CDT Office Visit [facility] - Rheumatology [address] [place] [address], [place] [phone] Perez Cervantes MD [facility] [place] [address] [place] [address] documented as of this encounter Procedures Procedure [...] approximately 13% higher for people identified as -Vietnamese. eGFR by MDRD 86 > OR = [...] 29 U/L [facility] Comment: Test Performed at: [employer] [facility] [address] [place], [place] [address] ??[phone] ASPEN HOLLINGSWORTH DO,MPH Blood BLOOD SPECIMEN / Unknown 03/03/2021 11:34 AM CDT 03/03/2021 11:35 AM CDT Perez Cervantes MD LAB - CHEMISTRY GERA DAVID [facility] [address] [place] [address] documented in this encounter Visit Diagnoses Diagnosis Encounter for therapeutic drug monitoring- Primary documented in this encounter Care Teams English Faculty Member Relationship Specialty Start Date End Date Jaspreet Pearl MD PCP - General 08/08/18 03/26/24 documented as of this encounter
--- OUTSIDE RECORDS SUMMARY | 2024-11-13 17:47 | XMS_ITS | Encounter Summary ---
Author Organization [facility] Address [address] [facility] [place] [address] Care Team Providers Care Tube Filler Name Role Phone Jaspreet Pearl MD Primary [...] COVID-19? No / Unsure 12/10/2020 1:40 PM APPLIED MATHEMATICIAN documented as of this encounter Plan of Treatment Upcoming Encounters Date Type Department Care Team (Late st Contact Info) Description 03/27/2025 1:00 PM CDT Office Visit [facility] Rheumatology [address] [place] [address], [place] [address] Perez Cervantes MD [address] [place] [address] [place] [address] documented as of this encounter Visit Diagnoses Not on filedocumented in this encounter Care Teams Tube Filler Relationship Specialty Start Date End Date Jaspreet Pearl MD PCP - General 08/08/18 03/26/24 documented as of this encounter
--- OUTSIDE RECORDS SUMMARY | 2024-11-13 17:47 | XMS_ITS | Encounter Summary ---
Author Organization [facility] Address [address] [place] [address] Care Team Providers Care Place Change Roof Bolter Name Role Phone Jaspreet Pearl MD Primary Care Provider + Encounter Details Date Type Department Care Team (Late st Contact Info) Description 01/22/2022 Orders Only [facility] [address] [place] [phone] Perez Cervantes MD [address] [place] [address] 2[place] [address] Social History Tobacco Use Types [...] Visit [facility] Rheumatology [address] [place] [phone] Perez Cervantes MD [address] [place] [address] 2[place] [address] documented as of this encounter Procedures Procedure Name Priority Date/Time Associated Diagnosis Comments CULTURE URINE REFLEXED 7:46 AM TRAIN EXAMINER URINALYSIS W/MICROSCOPIC REFLEX TO CULTURE 01/22/2022 7:46 AM TRAIN EXAMINER C-REACTIVE PROTEIN 01/22/2022 7: 46 AM TRAIN EXAMINER CULTURE URINE 01/22/2022 7:46 AM TRAIN EXAMINER ERYTHROCYTE SEDIMENTATION RATE 01/22/2022 7:46 AM TRAIN EXAMINER CBC W AUTO DIFFERENTIAL 01/22/2022 7:46 AM TRAIN EXAMINER COMPREHENSIVE METABOLIC PANEL 01/22/2022 7:46 AM TRAIN EXAMINER documented in this encounter Results * CULTURE URINE (01/22/2022 7:46 AM TRAIN EXAMINER) Culture [facility] Comment: ??CULTURE, URINE, ROUTINE ?Micro Number: ?[id number] ??Test Status: ? Final ??Specimen Source: ?? Urine ??Specimen Quality: ??Adequate ??Result: ?Mixed genital erin isolated. These superficial ? bacteria are not indicative of a urinary tract ? infection. No further organism identification is ? warranted on this specimen. If clinically ? indicated, recollect clean-catch, mid-stream ? urine and transfer immediately to Urine Culture ? Transport Tube. REPORT COMMENT: FASTING:YES Test Performed at: [facility] [place] [address] [place], [place] ??[address] ASPEN HOLLINGSWORTH DO,MPH 01/22/2022 7:46 AM TRAIN EXAMINER 01/22/2022 7:47 AM TRAIN EXAMINER Perez Cervantes MD LAB - MICROBIOLOGY O JOEY Performing Organization Address [facility] de Phone Number [facility] [phone] [place] [address] * CULTURE URINE REFLEXED (01/22/2022 7:46 AM TRAIN EXAMINER) Pathologist [facility] Reflexive Urine Culture See Below [facility] Comment: CULTURE INDICATED - RESULTS TO FOLLOW Test Performed at: [facility] [place] [address] [place], [place] ??[address] ASPEN HOLLINGSWORTH DO,MPH 01/22/2022 7:46 AM TRAIN EXAMINER 01/22/2022 7:47 AM TRAIN EXAMINER Perez Cervantes MD LAB - MICROBIOLOGY O JOEY Performing Organization Address [facility] de Phone Number [facility] [address] [place] [address] * C-REACTIVE PROTEIN (01/22/2022 7:46 AM TRAIN EXAMINER) Pathologist [facility] C-Reactive Protein 1.7 <8.0 mg/L [facility] Comment: Test Performed at: [facility] [place] [address] [place], [place] ??[phone] ASPEN HOLLINGSWORTH DO,MPH 01/22/2022 7:46 AM TRAIN EXAMINER 01/22/2022 7:47 AM TRAIN EXAMINER Perez Cervantes MD LAB - CHEMISTRY GERA DAVID Performing Organization Address [facility] de Phone Number [facility] [address] [place] [address] * CBC WITH DIFFERENTIAL (01/22/2022 7:46 AM TRAIN EXAMINER) Pathologist [facility] White Blood Cell Count 4.6 3.8 - [...] 0.4 % [facility] Comment: Test Performed at: [facility] ??[phone] NAVID SCOTT MD 01/22/2022 7:46 AM TRAIN EXAMINER 01/22/2022 7:47 AM TRAIN EXAMINER Perez Cervantes MD LAB - HEMATOLOGY ORD ERABLES Performing Organization Address City/[facility]/ZIP Co de Phone Number [address] [address] * ERYTHROCYTE SEDIMENTATION RATE (01/22/2022 7:46 AM TRAIN EXAMINER) Erythrocyte Sedimentation Rate Westergren 14 < OR = 30 mm/h [facility] Comment: Test Performed at: [facility] ??[phone] NAVID SCOTT MD 01/22/2022 7:46 AM TRAIN EXAMINER 01/22/2022 7:47 AM TRAIN EXAMINER Perez Cervantes MD LAB - HEMATOLOGY ORD ERABLES Performing Organization Address City/[facility]/ZIP Co de Phone Number [address] [address] * (ABNORMAL) URINALYSIS W/MICROSCOPIC REFLEX TO CULTURE (01/22/2022 7:46 AM TRAIN EXAMINER) Color UA YELLOW YELLOW [facility] Appearance CLOUDY(A) CLEAR [facility] Specific [employer] UA 1.015 1.001 - 1.035 [facility] pH [...] SEEN /LPF [facility] Comment: Test Performed at: [facility] [facility] [address] [place] [address] ??[phone] ASPEN HOLLINGSWORTH DO,MPH Granular Casts [facility] Casts UA [facility] Yeast [facility] Comments [facility] Note [facility] Comment: Test Performed at: [employer] [facility] [employer] [facility] [employer] [address] [place] [address] ??[phone] ASPEN HOLLINGSWORTH DO,MPH 01/22/2022 7:46 AM TRAIN EXAMINER 01/22/2022 7:47 AM TRAIN EXAMINER Perez Cervantes MD LAB - URINALYSIS ORD ERABLES [facility] [address] [place] [address] * COMPREHENSIVE METABOLIC PANEL (01/22/2022 7:46 AM TRAIN EXAMINER) Pathologist [facility] Glucose 86 65 - 99 mg/dL [facility] Comment: ? Fasting reference interval BUN 19 7 - 25 mg/dL [facility] Creatinine 0.81 0.50 - 1.05 mg/dL [facility] Comment: For patients >49 years of age, the reference limit for Creatinine is approximately 13% higher for people identified as -Lithuanian. eGFR by MDRD 80 > OR = [...] 29 U/L [facility] Comment: Test Performed at: [employer] [facility] [employer] [address] [place] [address] ??[phone] ASPEN HOLLINGSWORTH DO,MPH 01/22/2022 7:46 AM TRAIN EXAMINER 01/22/2022 7:47 AM TRAIN EXAMINER Perez Cervantes MD LAB - CHEMISTRY GERA [facility] [facility] [address] [place] [phone] documented in this encounter Visit Diagnoses Not on filedocumented in this encounter Care Teams Place Change Roof Bolter Relationship Specialty Start Date End Date Jaspreet Pearl MD PCP - General 08/08/18 03/26/24 documented as of this encounter
--- OUTSIDE RECORDS SUMMARY | 2024-11-13 17:47 | XMS_ITS | Encounter Summary ---
Author Organization [facility] Address [address] [facility] [place] [address] Care Team Providers Care Caramel Coloring Operator Name Role Phone Jaspreet Pearl MD Primary Care Provider + Encounter Details Date Type Department Care Team (Late st Contact Info) Description 03/14/2021 Orders Only [facility] [address] [place] [address] Perez Cervantes MD [address] [place] [address] 2L [place] [address] Polyarthritis; Encounter for therapeutic drug [...] Office Visit [facility] Rhe[facility]ology [address] [place] [address], [facility] [place] [phone] Perez Cervantes MD [address] [place] [address] 2L [place] [phone] documented as of this encounter Visit Diagnoses Diagnosis Polyarthritis Unspecified polyarthropathy or polyarthritis, site unspecified Encounter for therapeutic drug monitoring documented in this encounter Care Teams Caramel Coloring Operator Relationship Specialty Start Date End Date Jaspreet Pearl MD PCP - General 08/08/18 03/26/24 documented as of this encounter
--- OUTSIDE RECORDS SUMMARY | 2024-11-13 17:47 | XMS_ITS | Encounter Summary ---
Author Organization [facility] Address [address] [facility] [place] [address] Care Team Providers Care Body Technician Name Role Phone Jaspreet Pearl MD Primary Care Provider + Encounter Details Date Type Department Care Team (Late st Contact Info) Description 08/29/2021 Orders Only [facility] [address] [place] [address] [phone] Perez Cervantes MD [address] [place] [address] 2[place] [phone] Social History Tobacco Use Types Packs/Day Years [...] Visit [facility] - Rheumatology [address] [place] [address] [phone] Perez Cervantes MD [address] [place] [address] 2L [place] [phone] documented as of this encounter Visit Diagnoses Not on filedocumented in this encounter Care Teams Body Technician Relationship Specialty Start Date End Date Jaspreet Pearl MD PCP - General 08/08/18 03/26/24 documented as of this encounter
--- OUTSIDE RECORDS SUMMARY | 2024-11-13 17:47 | XMS_ITS | Encounter Summary ---
Author Organization [facility] Address [address] [facility] [address] Care Team Providers Care Guest Laundry Attendant Name Role Phone Jaspreet Pearl MD Primary Care Provider + Encounter Details Date Type Department Care Team (Late st Contact Info) Description 11/24/2021 Orders Only [facility] [address] [place] [phone] Perez Cervantes MD [address] [place] [address] 2[place] [phone] Social History Tobacco Use Types Packs/Day Years [...] Office Visit [facility] - [facility]ology [address] [place] [address] [phone] Perez Cervantes MD [address] [place] [address] 2L [place] [phone] documented as of this encounter Visit Diagnoses Not on filedocumented in this encounter Care Teams Guest Laundry Attendant Relationship Specialty Start Date End Date Jaspreet Pearl MD PCP - General 08/08/18 03/26/24 documented as of this encounter
--- OUTSIDE RECORDS SUMMARY | 2024-11-13 17:47 | XMS_ITS | Encounter Summary ---
Author Organization [facility] Address [address] [place] [address] Care Team Providers Care Creel Selector Name Role Phone Jaspreet Pearl MD Primary Care Provider + Reason for Visit * Reason Comments Follow-up Polyarhtritis Encounter Details Date Type Department Care Team (Latest Contact Info) Description 12/10/2020 1:00 PM GENERAL SERVICE TECHNICIAN Office Visit [facility] [address] [place] [address], [place] [address] Perez Cervantes MD [address] [place] [address] [place] [address] Polyarthritis (Primary Dx) Social History [...] COVID-19? No / Unsure 12/10/2020 1:40 PM GENERAL SERVICE TECHNICIAN documented as of this encounter Last Filed Vital Signs Vital Sign Reading Time Taken Comments Blood Pressure 102/72 12/10/2020 1:10 PM GENERAL SERVICE TECHNICIAN Pulse 72 12/10/2020 1:10 PM GENERAL SERVICE TECHNICIAN Temperature 36.4 ??C (97.5 ??F) 12/10/2020 1:10 PM CS T Respiratory Rate - - Oxygen Saturation - - Inhaled Oxygen Concentration - - Weight 80.7 kg (178 lb) 12/10/2020 1:10 PM GENERAL SERVICE TECHNICIAN Height 172.7 cm (5' 8 ) 12/10/2020 1:10 PM GENERAL SERVICE TECHNICIAN Body Mass Index 27.06 12/10/2020 1:10 PM GENERAL SERVICE TECHNICIAN documented in this encounter Progress Notes [...] adenopathy/thyromegaly/tenderness (General) Unremarkable (Extrem) HNs DIPs/BNs 5th PIPs/PENITENTIARY prominence; 1-3rd MCPs SfT0; 1-4th MTPs SfT1; No donta synovitis. MS= bilat (Assess) Polyarthritis clinically stable. Monitor MTPs (Plan) Continue same meds with labs q 8 weeks and yearly TB screening. Xrays today of feet. Advise when results return. RTO in 6 months. Discussed with patient. Perez Cervantes MD, FACP, FAAP, MACR Nut Roaster Helper and Pediatric Rheumatology Professor of Internal Medicine,Pediatrics, and Molecular Immunology [facility] RAL SERVICE TECHNICIAN documented in this encounter Plan of Treatment Upcoming Encounters Date Type Department Care Team (Late st Contact Info) Description 03/27/2025 1:00 PM CDT Office Visit [facility] - Rheumatology [address] [facility], [place] [phone] Perez Cervantes MD [facility] 2L [place] [address] documented as of this encounter Results * XR FOOT LEFT 2VW (12/10/2020 1:59 PM GENERAL SERVICE TECHNICIAN) Anatomical Region Laterality Modality Ankle / Foot Radiographic Corin ging 12/10/2020 2:43 PM GENERAL SERVICE TECHNICIAN Impressions 12/10/2020 3:00 PM GENERAL SERVICE TECHNICIAN IMPRESSION: No acute fracture, dislocation, or significant arthritis identified. Dictated by Julián De Leon MD (radiology specialist). I, Dr. DINH TOLEDO MD have personally reviewed and interpreted this examination/study. This report was electronically signed by DINH TOLEDO MD ??on 12/10/2020 3:00 PM . Narrative 12/10/2020 3:00 PM GENERAL SERVICE TECHNICIAN EXAMINATION: XR FOOT RIGHT 2VW, XR FOOT [...] Dictated by Julián De Leon MD (radiology specialist). Dr. DINH Osorio MD have personally reviewed and interpreted this examination/study. This report was electronically signed by DINH TOLEDO MD on12/10/2020 3:00 PM . Perez Cervantes MD DIAGNOSTIC IMAGING O RDERABLES * XR FOOT RIGHT 2VW (12/10/2020 1:59 PM GENERAL SERVICE TECHNICIAN) Anatomical Region Laterality Modality Ankle / Foot Radiographic Corin ging 12/10/2020 2:43 PM GENERAL SERVICE TECHNICIAN Impressions 12/10/2020 3:00 PM GENERAL SERVICE TECHNICIAN IMPRESSION: No acute fracture, dislocation, or significant arthritis identified. Dictated by Julián De Leon MD (radiology specialist). Dr. DINH Osorio MD have personally reviewed and interpreted this examination/study. This report was electronically signed by DINH TOLEDO MD ??on 12/10/2020 3:00 PM . Narrative 12/10/2020 3:00 PM GENERAL SERVICE TECHNICIAN EXAMINATION: XR FOOT RIGHT 2VW, XR FOOT [...] Dictated by Julián De Leon MD (radiology specialist). I, Dr. DINH TOLEDO MD have personally reviewed and interpreted this examination/study. This report was electronically signed by DINH TOLEDO MD on12/10/2020 3:00 PM . Perez Cervantes MD DIAGNOSTIC IMAGING O JOEY documented in this encounter Visit Diagnoses Diagnosis Polyarthritis- Primary Unspecified polyarthropathy or polyarthritis, site unspecified Polyarthritis Unspecified polyarthropathy or polyarthritis, site unspecified documented in this encounter Care Teams Creel Selector Relationship Specialty Start Date End Date Jaspreet Pearl MD PCP - General 08/08/18 03/26/24 documented as of this encounter
--- OUTSIDE RECORDS SUMMARY | 2024-11-13 17:48 | XMS_ITS | Encounter Summary ---
Author Organization [facility] Address [address] [facility] [place] [address] Care Team Providers Care Mushroom Press Operator Name Role Phone Jaspreet Pearl MD Primary Care Provider + Encounter Details Date Type Department Care Team (Late Contact Info) Description 09/02/2018 Orders Only [facility] [address] [place] [address] Katina Blankenship RN Encounter for therapeutic drug [...] Description 03/27/2025 1:00 PM CDT Office Visit [facility] - Rheumatology [address] [place] [address], [place] [phone] Perez Cervantes MD [address] [place] [address] [place] [phone] documented as of this encounter Visit Diagnoses Diagnosis Encounter for therapeutic drug monitoring Encounter for long-term (current) use of medications Encounter for long-term (current) use of other medications Polyarthritis Unspecified polyarthropathy or polyarthritis, site unspecified Primary osteoarthritis involving multiple joints documented in this encounter Care Teams Mushroom Press Operator Relationship Specialty Start Date End Date Jaspreet Pearl MD PCP - General 08/08/18 03/26/24 documented as of this encounter
--- OUTSIDE RECORDS SUMMARY | 2024-11-13 17:48 | XMS_ITS | Encounter Summary ---
Author Organization [facility] Address [address] [place] [address] Care Team Providers Care Business Intern Name Role Phone Jaspreet Pearl MD Primary Care Provider + Reason for Visit * Reason Comments Refill Request Encounter Details Date Type Department Care Team (Late st Contact Info) Description 02/26/2020 Refill [facility] [address] [place] [address] Perez Cervantes MD [address] [place] [phone] Refill Request Social History Tobacco Use Types [...] Description 03/27/2025 1:00 PM CDT Office Visit [facility] - Rheumatology [address] [place] [address], [place] [address] Perez Cervantes MD [address] [place] [address] [place] [address] documented as of this encounter Visit Diagnoses Not on filedocumented in this encounter Care Teams Business Intern Relationship Specialty Start Date End Date Jaspreet Pearl MD PCP - General 08/08/18 03/26/24 documented as of this encounter
--- OUTSIDE RECORDS SUMMARY | 2024-11-13 17:48 | XMS_ITS | Encounter Summary ---
Author Organization [facility] Address [address] [facility] [place] [address] Care Team Providers Care Cream Maker Name Role Phone Jaspreet Pearl MD Primary Care Provider + Encounter Details Date Type Department Care Team (Late Contact Info) Description 11/11/2018 Orders Only [facility] [address] [place] [address] Perez Cervantes MD [address] [place] [address] 2L [place] [address] Polyarthritis; Encounter for therapeutic drug [...] Office Visit [facility], [place] [phone] Perez Cervantes MD [address] [place] [address] 2L [place] [phone] documented as of this encounter Procedures Procedure Name Priority Date/Time Associated Diagnosis Comments URINALYSIS W/MICROSCOPIC REFLEX TO CULTURE Routine 11/17/2018 8:53 AM EMBROIDERY PATTERNMAKER Polyarthritis Encounter for therapeutic drug monitoring C-REACTIVE PROTEIN Routine 11/17/2018 8: 53 AM EMBROIDERY PATTERNMAKER Polyarthritis Encounter for therapeutic drug monitoring ERYTHROCYTE SEDIMENTATION RATE Routine 11/17/2018 8:53 AM EMBROIDERY PATTERNMAKER Polyarthritis Encounter for therapeutic drug monitoring CBC W/O DIFFERENTIAL Routine 11/17/2018 8:53 AM EMBROIDERY PATTERNMAKER Polyarthritis Encounter for therapeutic drug monitoring COMPREHENSIVE METABOLIC PANEL Routine 11/17/2018 8:53 AM EMBROIDERY PATTERNMAKER Polyarthritis Encounter for therapeutic drug monitoring documented in this encounter Results * (ABNORMAL) URINALYSIS W/MICROSCOPIC REFLEX TO CULTURE (11/17/2018 8:53 AM EMBROIDERY PATTERNMAKER) Color UA YELLOW YELLOW [facility] Appearance CLOUDY(A) CLEAR [facility] Specific [place] UA 1.012 1.001 - 1.035 [facility] pH [...] MUCOUS THREADS [facility] Comment: Test Performed at: [email or web address] [id number] [place] [address] ??[phone] ASPEN HOLLINGSWORTH DO,MPH Urine URINE SPECIMEN OBTAINED BY CLEAN CATCH PROCEDURE / Unknown 11/17/2018 8:53 AM EMBROIDERY PATTERNMAKER 11/17/2018 8:54 AM EMBROIDERY PATTERNMAKER Perez Cervantes MD LAB - URINALYSIS ORD ERABLES [facility] [address] [place] [address] * ERYTHROCYTE SEDIMENTATION RATE (11/17/2018 8:53 AM EMBROIDERY PATTERNMAKER) Pathologist [facility] Erythrocyte Sedimentation Rate Westergren 16 < OR = 30 mm/h [facility] Comment: Test Performed at: [facility] ??[phone] NAVID SCOTT MD Blood BLOOD SPECIMEN / Unknown 11/17/2018 8:53 AM EMBROIDERY PATTERNMAKER 11/17/2018 8:54 AM EMBROIDERY PATTERNMAKER Perez Cervantes MD LAB - HEMATOLOGY ORD ERABLES Performing Organization Address [facility] Co de Phone Number [address] [address] * C-REACTIVE PROTEIN (11/17/2018 8:53 AM EMBROIDERY PATTERNMAKER) [facility] C-Reactive Protein 4.9 <8.0 mg/L [facility] Comment: Test Performed at: [facility] [place] [address] [place], [place] ??[address] ASPEN HOLLINGSWORTH DO,MPH Blood BLOOD SPECIMEN / Unknown 11/17/2018 8:53 AM EMBROIDERY PATTERNMAKER 11/17/2018 8:54 AM EMBROIDERY PATTERNMAKER Perez Cervantes MD LAB - CHEMISTRY ORDE RABDEMARCO Performing Organization Address [facility] de Phone Number [address] [address] * COMPREHENSIVE METABOLIC PANEL (11/17/2018 8:53 AM EMBROIDERY PATTERNMAKER) Pathologist [facility] Glucose 87 65 - 99 mg/dL [facility] Comment: ? Fasting reference interval BUN 17 7 - 25 mg/dL [facility] Creatinine 0.75 0.50 - 1.05 mg/dL [facility] Comment: For patients >49 years of age, the reference limit for Creatinine is approximately 13% higher for people identified as -[place]. eGFR by MDRD 90 > OR = [...] 29 U/L [facility] Comment: Test Performed at: [facility] [address] [place], [place] ??[phone] ASPEN HOLLINGSWORTH DO,MPH Blood BLOOD SPECIMEN / Unknown 11/17/2018 8:53 AM EMBROIDERY PATTERNMAKER 11/17/2018 8:54 AM EMBROIDERY PATTERNMAKER Perez Cervantes MD LAB - CHEMISTRY ORDSagar [facility] Organization Address City/State/[facility] Co de Phone Number [facility] [address] [place] [address] * CBC W/O DIFFERENTIAL (11/17/2018 8:53 AM EMBROIDERY PATTERNMAKER) White Blood Cell Count 5.0 3.8 - [...] 12.5 fL [facility] Comment: Test Performed at: [facility] [address] [place], [place] ??[address] ASPEN HOLLINGSWORTH DO,MPH Blood BLOOD SPECIMEN / Unknown 11/17/2018 8:53 AM EMBROIDERY PATTERNMAKER 11/17/2018 8:54 AM EMBROIDERY PATTERNMAKER Perez Cervantes MD LAB - HEMATOLOGY ORD [facility] Organization Address City/State/ZIP Co de Phone Number [facility] [address] [place] [address] documented in this encounter Visit Diagnoses Diagnosis Polyarthritis Unspecified polyarthropathy or polyarthritis, site unspecified Encounter for therapeutic drug monitoring documented in this encounter Care Teams Cream Maker Relationship Specialty Start Date End Date Jaspreet Pearl MD PCP - General 08/08/18 03/26/24 documented as of this encounter
--- OUTSIDE RECORDS SUMMARY | 2024-11-13 17:48 | XMS_ITS | Encounter Summary ---
Author Organization [facility] Address [address] [facility] [address] Care Team Providers Care Assistant Baseball Coach Name Role Phone Jaspreet Pearl MD Primary Care Provider + Encounter Details Date Type Department Care Team (Late Contact Info) Description 04/14/2019 Orders Only [facility] [address] [place] [address] Perez Cervantes MD [address] [place] [address] 2L [place] [phone] Polyarthritis; Encounter for therapeutic drug monitoring Social [...] Office Visit [facility] - Rhe[facility]ology [address] [place] [address], [place] [phone] Perez Cervantes MD [address] [place] [address] 2L [place] [phone] documented as of this encounter Procedures Procedure [...] [facility] Comment: ??CULTURE, URINE, ROUTINE ?MICRO NUMBER: ?[id number] ??TEST STATUS: ? FINAL ??SPECIMEN SOURCE: ?? URINE ??SPECIMEN QUALITY: ??ADEQUATE ??RESULT: ?Multiple organisms present, each less than 10,000 ? CFU/mL. These organisms, commonly found on ? external and internal genitalia, are considered ? to be colonizers. No further testing performed. REPORT COMMENT: FASTING:YES Test Performed at: [facility] [place] [address] [place], [place] ??[phone] ASPEN HOLLINGSWORTH DO,MPH 04/14/2019 10:4 3 AM CDT 04/14/2019 10:45 AM CDT Perez Cervantes MD LAB - MICROBIOLOGY O RDDANITA Performing Organization Address [facility] Co de Phone Number [facility] [phone] [place] [address] * CULTURE URINE REFLEXED (04/14/2019 10:43 AM CDT) Reflexive Urine Culture CULTURE INDICATED - RESULTS TO FOLLOW [facility] Comment: Test Performed at: [facility] [address] [place], [place] ??[phone] ASPEN HOLLINGSWORTH DO,MPH 04/14/2019 10:4 3 AM CDT 04/14/2019 10:45 AM CDT Perez Cervantes MD LAB - MICROBIOLOGY O JOEY Performing Organization Address [facility] [place] [address] * (ABNORMAL) URINALYSIS W/MICROSCOPIC REFLEX TO CULTURE (04/14/2019 10:43 AM CDT) Color UA YELLOW YELLOW [facility] Appearance CLEAR CLEAR [facility] Specific [place] UA 1.008 1.001 - 1.035 [facility] pH [...] Comment: REPORT COMMENT: FASTING:YES Test Performed at: [facility] [place] [address] [place], [place] ??[phone] ASPEN HOLLINGSWORTH DO,MPH Urine URINE SPECIMEN OBTAINED BY CLEAN CATCH PROCEDURE / Unknown 04/14/2019 10:43 AM CDT 04/14/2019 10:45 AM CDT Perez Cervantes MD LAB - URINALYSIS ORD ERABLES Performing Organization Address [facility] Co de Phone Number [facility] [address] [place] [address] * ERYTHROCYTE SEDIMENTATION RATE (04/14/2019 10:43 AM CDT) Erythrocyte Sedimentation Rate Westergren 17 < OR = 30 mm/h [facility] Comment: REPORT COMMENT: FASTING:YES Test Performed at: [email or web address] [address] [place], [place] ??[address] ASPEN HOLLINGSWORTH DO,MPH Blood BLOOD SPECIMEN / Unknown 04/14/2019 10:43 AM CDT 04/14/2019 10:45 AM CDT Perez Cervantes MD LAB - HEMATOLOGY ORD ERABLES Performing Organization Address [facility] Co de Phone Number [facility] [address] [place] [phone] * COMPREHENSIVE METABOLIC PANEL (04/14/2019 10:43 AM CDT) Glucose 81 65 - 99 mg/dL [facility] Comment: ? Fasting reference interval BUN 16 7 - 25 mg/dL [facility] Creatinine 0.81 0.50 - 1.05 mg/dL [facility] Comment: For patients >49 years of age, the reference limit for Creatinine is approximately 13% higher for people identified as -[place]zerbaijani. eGFR by MDRD 81 > OR = [...] Comment: REPORT COMMENT: FASTING:YES Test Performed at: [facility] [address] [place], [place] ??[phone] ASPEN HOLLINGSWORTH DO,MPH Blood BLOOD SPECIMEN / Unknown 04/14/2019 10:43 AM CDT 04/14/2019 10:45 AM CDT Perez Cervantes MD LAB - CHEMISTRY GERA DAVID Performing Organization Address [facility] de Phone Number [facility] [phone] [place] [address] * C-REACTIVE PROTEIN (04/14/2019 10:43 AM CDT) [facility] C-Reactive Protein 3.1 <8.0 mg/L [facility] Comment: REPORT COMMENT: FASTING:YES Test Performed at: [facility] [facility] [employer] [address] [place] [address] ??[phone] ASPEN HOLLINGSWORTH DO,MPH Blood BLOOD SPECIMEN / Unknown 04/14/2019 10:43 AM CDT 04/14/2019 10:45 AM CDT Perez Cervantes MD LAB - CHEMISTRY GERA DAVID Performing Organization Address [facility] [place] [address] * (ABNORMAL) CBC WITH DIFFERENTIAL (04/14/2019 10:43 AM CDT) Pathologist [facility] White Blood Cell Count 5.0 3.8 - [...] 0.2 % [facility] Comment: Test Performed at: [email or web address] [id number] [place] [address] ??[phone] ASPEN HOLLINGSWORTH DO,MPH Blood BLOOD SPECIMEN / Unknown 04/14/2019 10:43 AM CDT 04/14/2019 10:45 AM CDT Perez Cervantes MD LAB - HEMATOLOGY ORD ERABLES Performing Organization Address City/State/[facility] Co de Phone Number [facility] [address] [place] [address] documented in this encounter Visit Diagnoses Diagnosis Polyarthritis Unspecified polyarthropathy or polyarthritis, site unspecified Encounter for therapeutic drug monitoring documented in this encounter Care Teams Assistant Baseball Coach Relationship Specialty Start Date End Date Jaspreet Pearl MD PCP - General 08/08/18 03/26/24 documented as of this encounter
--- OUTSIDE RECORDS SUMMARY | 2024-11-13 17:48 | XMS_ITS | Encounter Summary ---
Author Organization [facility] Address [address] [facility] [place] [address] Care Team Providers Care Elevator Mechanic Apprentice Name Role Phone Jaspreet Pearl MD Primary Care Provider + Encounter Details Date Type Department Care Team (Late Contact Info) Description 05/27/2020 Orders Only [facility] [address] [place] [address] Perez Cervantes MD [address] [place] [address] 2L [place] [address] Social History Tobacco Use Types [...] Visit [facility] [address] [place] [address], [place] [phone] Perez Cervantes MD [address] [place] [address] 2L [place] [phone] documented as of this encounter Procedures Procedure [...] T-lymphocytes. For additional information, please refer to https://education.Worksoft/faq/GDS488 (This link is being provided for informational/ educational purposes only.) Test Performed at: [email or web address] ??[phone] ASPEN HOLLINGSWORTH DO,MPH 05/27/2020 8:42 AM CDT 05/27/2020 8:43 AM CDT Perez Cervantes MD LAB - CHEMISTRY GERA DAVID [facility] [address] [place] [address] * CULTURE URINE REFLEXED I (05/27/2020 8:42 AM CDT) Reflexive Urine Culture NO CULTURE INDICATED [facility] Comment: Test Performed at: [facility] [address] [place], [place] ??[phone] ASPEN HOLLINGSWORTH DO,MPH 05/27/2020 8:42 AM CDT 05/27/2020 8:43 AM CDT Perez Cervantes MD LAB - MICROBIOLOGY O RDERABLES Performing Organization Address City/State/[facility] Co ny Phone Number [facility] [address] [place] [address] documented in this encounter Visit Diagnoses Not on filedocumented in this encounter Care Teams Elevator Mechanic Apprentice Relationship Specialty Start Date End Date Jaspreet Pearl MD PCP - General 08/08/18 03/26/24 documented as of this encounter
--- OUTSIDE RECORDS SUMMARY | 2024-11-13 17:48 | XMS_ITS | Encounter Summary ---
Author Organization [facility] Address [address] [facility] [place] [address] Care Team Providers Care Planogrammer Name Role Phone Jaspreet Pearl MD Primary Care Provider + Reason for Visit * Reason Onset Date Comments MEDICATION REFILL 02/02/2019 Encounter Details Date Type Department Care Team (Late Contact Info) Description 02/02/2019 Refill [facility] Pediatric[facility] - Rheumatology [address] [place] [address] Perez Cervantes MD [address] [place] [address] 2L [place] [phone] MEDICATION REFILL Social History Tobacco Use Types [...] Office Visit [facility] - Rheumatology [address] [place] [address], [place] [phone] Perez Cervantes MD [address] [place] [address] 2L [place] [address] documented as of this encounter Visit Diagnoses Not on filedocumented in this encounter Care Teams Planogrammer Relationship Specialty Start Date End Date Jaspreet Pearl MD PCP - General 08/08/18 03/26/24 documented as of this encounter
--- OUTSIDE RECORDS SUMMARY | 2024-11-13 17:48 | XMS_ITS | Encounter Summary ---
Author Organization [facility] Health Address [address] [address] Care Team Providers Care Surface Grinder Name Role Phone Jaspreet Pearl MD Primary Care Provider + Reason for Visit * Reason Comments Pain Joint Encounter Details Date Type Department Care Team (Latest Contact Info) Description 08/08/2018 1:30 PM CDT Office Visit [facility] Rheumatology [address] [place] [address] Perez Cervantes MD [facility] [place] [address] Polyarthritis (Primary Dx); Encounter for [...] HNs DIPs/BNs 5th PIPs/USP prominence; 1-4th MCPs S1T0; All other joints show no synovitis except MTPs R S1T1; LS0T1; MS = bilat (Assess) Mild MTPs swelling. Overall stable (Plan) Continue same meds. Labs now and emphasized q 6 weeks. CXR/Quant Gold now to monitor biologic. FU with PMD for possible depression. Advise if any change in parameters. RTO in 4 months. Perez Cervantes MD, FACP, FAAP, MACR Explosives Operator and Pediatric Rheumatology Professor of Internal Medicine,Pediatrics, and Molecular Immunology [facility] documented in this encounter Plan of Treatment Upcoming Encounters Date Type Department Care Team (Late st Contact Info) Description 03/27/2025 1:00 PM CDT Office Visit [facility] - Rheumatology [address] [place] [address], [facility] [place] [address] Perez Cervantes MD [address] [place] [address] [place] [address] documented as of this encounter Procedures Procedure [...] QUANTIFERON TB-GOLD (08/12/2018 7:44 AM CDT) Pathologist [facility] QuantiFERON TB Gold NEGATIVE NEGATIVE [facility] [...] IU/mL. For additional information, please refer to http://education.DJZ/faq/QFT (This link is being provided for informational/ educational purposes only.) Test Performed at: [employer] [facility] [address] [place], [place] ??[phone] ASPEN HOLLINGSWORTH DO,MPH Blood BLOOD SPECIMEN / Unknown 08/12/2018 7:44 AM CDT 08/12/2018 7:38 AM CDT Perez Cervantes MD LAB - CHEMISTRY GERA DAVID [facility] [address] [place] [address] * URINALYSIS W/MICROSCOPIC REFLEX TO CULTURE (08/12/2018 7:35 AM CDT) Pathologist [facility] Color UA YELLOW YELLOW [facility] Appearance CLEAR CLEAR [facility] Specific [place] UA 1.007 1.001 - 1.035 [facility] pH [...] Comment: REPORT COMMENT: FASTING:YES Test Performed at: [employer] [facility] [address] [place], [place] ??[phone] ASPEN HOLLINGSWORTH DO,MPH Urine URINE SPECIMEN OBTAINED BY CLEAN CATCH PROCEDURE / Unknown 08/12/2018 7:35 AM CDT 08/12/2018 7:36 AM CDT Perez Cervantes MD LAB - URINALYSIS ORD ERABLES Performing Organization Address [facility] [place] [address] * ERYTHROCYTE SEDIMENTATION RATE (08/12/2018 7:35 AM CDT) Erythrocyte Sedimentation Rate Westergren 16 < OR = 30 mm/h [facility] Comment: REPORT COMMENT: FASTING:YES Test Performed at: [employer] ??[phone] NAVID SCOTT MD Blood BLOOD SPECIMEN / Unknown 08/12/2018 7:35 AM CDT 08/12/2018 7:36 AM CDT Perez Cervantes MD LAB - HEMATOLOGY ORD ERABLES Performing Organization Address [facility] Co de Phone Number [address] [address] * COMPREHENSIVE METABOLIC PANEL (08/12/2018 7:35 AM CDT) Glucose 86 65 - 99 mg/dL [facility] Comment: ? Fasting reference interval BUN 14 7 - 25 mg/dL [facility] Creatinine 0.71 0.50 - 1.05 mg/dL [facility] Comment: For patients >49 years of age, the reference limit for Creatinine is approximately 13% higher for people identified as -Cook Islander. eGFR by MDRD 96 > OR = [...] Comment: REPORT COMMENT: FASTING:YES Test Performed at: [employer] [address] [place], [place] ??[phone] ASPEN HOLLINGSWORTH DO,MPH Blood BLOOD SPECIMEN / Unknown 08/12/2018 7:35 AM CDT 08/12/2018 7:36 AM CDT Perez Cervantes MD LAB - CHEMISTRY GERA DAVID Performing Organization Address [facility] Co de Phone Number [facility] [address] [place] [address] * C-REACTIVE PROTEIN (08/12/2018 7:35 AM CDT) C-Reactive Protein 2.4 <8.0 mg/L [facility] Comment: REPORT COMMENT: FASTING:YES Test Performed at: [place] [place], [place] ??[phone] ASPEN HOLLINGSWORTH DO,MPH Blood BLOOD SPECIMEN / Unknown 08/12/2018 7:35 AM CDT 08/12/2018 7:36 AM CDT Perez Cervantes MD LAB - CHEMISTRY GERA DAVID Performing Organization Address [facility] Co de Phone Number [facility] [address] [place] [address] * CBC WITH DIFFERENTIAL (08/12/2018 7:35 AM [...] Comment: REPORT COMMENT: FASTING:YES Test Performed at: [employer] [address] ??[phone] ASPEN HOLLINGSWORTH DO,MPH Blood BLOOD SPECIMEN / Unknown 08/12/2018 7:35 AM CDT 08/12/2018 7:36 AM CDT Perez Cervantes MD LAB - HEMATOLOGY ORD [place] Performing Organization Address City/State/[facility] Co de Phone Number [facility] [address] [place] [address] * XR CHEST 2VW (08/08/2018 3:19 PM CDT) Anatomical Region Laterality Modality Chest Radiographic Corin ging 08/08/2018 3:20 PM CDT Impressions 08/08/2018 4:24 PM CDT IMPRESSION: No acute pulmonary process. Dictated by Prosper Duenas MD (residential property consultant). I, Dr. DINH TOLEDO MD have personally [...] pulmonary process. Dictated by Prosper Duenas MD (residential property consultant). I, Dr. DINH TOLEDO MD have personally [...] influenza documented in this encounter Care Teams Surface Grinder Relationship Specialty Start Date End Date Jaspreet Pearl MD PCP - General 08/08/18 03/26/24 documented as of this encounter
--- OUTSIDE RECORDS SUMMARY | 2024-11-13 17:48 | XMS_ITS | Encounter Summary ---
Author Organization [facility] Address [address] [place] [address] Care Team Providers Care Barge Master Name Role Phone Jaspreet Pearl MD Primary Care Provider + Encounter Details Date Type Department Care Team (Late Contact Info) Description 04/28/2019 Orders Only [facility] [address] [place] [address] Perez Cervantes MD [address] [place] [address] [address] [place] [address] Polyarthritis; Encounter for therapeutic drug monitoring Social [...] Office Visit [facility] - Rheumatology [address] [place] [phone] Perez Cervantes MD [address] [place] [address] [address] [place] [phone] documented as of this encounter Visit Diagnoses Diagnosis Polyarthritis Unspecified polyarthropathy or polyarthritis, site unspecified Encounter for therapeutic drug monitoring documented in this encounter Care Teams Barge Master Relationship Specialty Start Date End Date Jaspreet Pearl MD PCP - General 08/08/18 03/26/24 documented as of this encounter
--- OUTSIDE RECORDS SUMMARY | 2024-11-13 17:48 | XMS_ITS | Encounter Summary ---
Author Organization [facility] Address [address] [facility] [place] [address] Care Team Providers Care Biomaterials Engineer Name Role Phone Jaspreet Pearl MD Primary Care Provider + Encounter Details Date Type Department Care Team (Late Contact Info) Description 03/03/2019 Orders Only [facility] [address] [place] [address] Perez Cervantes MD [address] [place] [address] [address] [place] [phone] Polyarthritis; Encounter for therapeutic drug monitoring Social [...] Office Visit [facility] - Rheumatology [address] [place] [address], [place] [phone] Perez Cervantes MD [address] [place] [address] [address] [place] [phone] documented as of this encounter Visit Diagnoses Diagnosis Polyarthritis Unspecified polyarthropathy or polyarthritis, site unspecified Encounter for therapeutic drug monitoring documented in this encounter Care Teams Biomaterials Engineer Relationship Specialty Start Date End Date Jaspreet Pearl MD PCP - General 08/08/18 03/26/24 documented as of this encounter
--- OUTSIDE RECORDS SUMMARY | 2024-11-13 17:48 | XMS_ITS | Encounter Summary ---
Author Organization [facility] Address [address] [place] [address] Care Team Providers Care Multi Share Program Coordinator Name Role Phone Jaspreet Pearl MD Primary Care Provider + Encounter Details Date Type Department Care Team (Late st Contact Info) Description 08/16/2020 Orders Only [facility] [address] [place] [address] Perez Cervantes MD [address] [place] [address] [address] [place] [address] Polyarthritis; Encounter for therapeutic drug [...] Visit [facility] - Rheumatology [address] [place] [address], [place] [phone] Perez Cervantes MD [address] [place] [address] [address] [place] [phone] documented as of this encounter Procedures Procedure Name Priority Date/Time Associated Diagnosis Comments URINALYSIS W/MICROSCOPIC REFLEX TO CULTURE Routine 10/18/2020 7:16 AM [employer]OVE [employer]MER Polyarthritis Encounter for therapeutic drug monitoring C-REACTIVE PROTEIN Routine 10/18/2020 7: 16 AM [employer] Polyarthritis Encounter for therapeutic drug monitoring ERYTHROCYTE SEDIMENTATION RATE Routine 10/18/2020 7:16 AM [employer]MER Polyarthritis Encounter for therapeutic drug monitoring CBC W AUTO DIFFERENTIAL Routine 10/18/2020 7:16 AM [employer]MER Polyarthritis Encounter for therapeutic drug monitoring COMPREHENSIVE METABOLIC PANEL Routine 10/18/2020 7:16 AM [employer]MER Polyarthritis Encounter for therapeutic drug monitoring documented in this encounter Results * URINALYSIS W/MICROSCOPIC REFLEX TO CULTURE (10/18/2020 7:16 AM [employer]MER) Color UA YELLOW YELLOW [facility] Appearance CLEAR CLEAR [facility] Specific [place] UA 1.018 1.001 - 1.035 [facility] pH [...] SEEN /LPF [facility] Comment: Test Performed at: [facility] [address] ??[phone] ASPEN HOLLINGSWORTH DO,MPH Urine URINE SPECIMEN OBTAINED BY CLEAN CATCH PROCEDURE / Unknown 10/18/2020 7:16 AM [employer] FORMER 10/18/2020 7:17 AM [employer]MER Perez Cervantes MD LAB - URINALYSIS ORD ERABLES [facility] [address] [place] [address] * C-REACTIVE PROTEIN (10/18/2020 7:16 AM [employer] FORMER) C-Reactive Protein 2.5 <8.0 mg/L [facility] Comment: Test Performed at: [facility] [place] [id number] [place], [place] ??[phone] ASPEN HOLLINGSWORTH DO,MPH Blood BLOOD SPECIMEN / Unknown 10/18/2020 7:16 AM [employer] FORMER 10/18/2020 7:17 AM [employer]MER Perez Cervantes MD LAB - CHEMISTRY ORDE JOANN Performing Organization Address [facility] Co de Phone Number [address] [address] * ERYTHROCYTE SEDIMENTATION RATE (10/18/2020 7:16 AM [employer]MER) Pathologist [facility] Erythrocyte Sedimentation Rate Westergren 11 < OR = 30 mm/h [facility] Comment: Test Performed at: [address] ??[phone] NAVID SCOTT MD Blood BLOOD SPECIMEN / Unknown 10/18/2020 7:16 AM [employer]MER 10/18/2020 7:17 AM [employer]MER Perez Cervantes MD LAB - HEMATOLOGY ORD [place] Performing Organization Address [facility] Co de Phone Number [place] [phone] * COMPREHENSIVE METABOLIC PANEL (10/18/2020 7:16 AM [employer]) Pathologist [facility] Glucose 80 65 - 99 mg/dL [facility] Comment: ? Fasting reference interval BUN 17 7 - 25 mg/dL [facility] Creatinine 0.66 0.50 - 1.05 mg/dL [facility] Comment: For patients >49 years of age, the reference limit for Creatinine is approximately 13% higher for people identified as -Haitian. eGFR by MDRD 98 > OR = [...] 29 U/L [facility] Comment: Test Performed at: [facility] [address] [place], [place] ??[address] ASPEN HOLLINGSWORTH DO,MPH Blood BLOOD SPECIMEN / Unknown 10/18/2020 7:16 AM [employer]MER 10/18/2020 7:17 AM [employer] Perez Cervantes MD LAB - CHEMISTRY GERA DAVID Performing Organization Address City/State/[facility] Co de Phone Number [facility] [address] [place] [address] * (ABNORMAL) CBC WITH DIFFERENTIAL (10/18/2020 7:16 AM [employer]) White Blood Cell Count 3.6(L) 3.8 - [...] 0.6 % [facility] Comment: Test Performed at: [facility] [address] [place], [place] ??[address] NAVID SCOTT MD Blood BLOOD SPECIMEN / Unknown 10/18/2020 7:16 AM [employer] 10/18/2020 7:17 AM [employer] Perez Cervantes MD LAB - HEMATOLOGY ORD ERABLES Performing Organization Address City/State/[facility] Co de Phone Number [address] [address] documented in this encounter Visit Diagnoses Diagnosis Polyarthritis Unspecified polyarthropathy or polyarthritis, site unspecified Encounter for therapeutic drug monitoring documented in this encounter Care Teams Multi Share Program Coordinator Relationship Specialty Start Date End Date Jaspreet Pearl MD PCP - General 08/08/18 03/26/24 documented as of this encounter
--- OUTSIDE RECORDS SUMMARY | 2024-11-13 17:48 | XMS_ITS | Encounter Summary ---
Author Organization [facility] Address [address] [facility] [place] [address] Care Team Providers Care Bellhop Service Captain Name Role Phone Jaspreet Pearl MD Primary Care Provider + Encounter Details Date Type Department Care Team (Late st Contact Info) Description 04/12/2020 Orders Only [facility] [address] [place] [address] Perez Cervantes MD [address] [place] [address] 2L [place] [address] Polyarthritis ; Encounter for therapeutic [...] Visit [facility] - Rheumatology [address] [place] [address], [place] [phone] Perez Cervantes MD [address] [place] [address] 2[address] [place] [address] documented as of this encounter Procedures Procedure [...] CULTURE INDICATED [facility] Comment: Test Performed at: [facility] [address] ??[phone] ASPEN HOLLINGSWORTH DO,MPH 04/12/2020 9:30 AM CDT 04/12/2020 9:31 AM CDT Perez Cervantes MD LAB - MICROBIOLOGY O RDERABLES [facility] [address] [place] [address] * URINALYSIS W/MICROSCOPIC REFLEX TO CULTURE (04/12/2020 9:30 AM CDT) Color UA YELLOW YELLOW [facility] Appearance CLEAR CLEAR [facility] Specific [place] UA 1.009 1.001 - 1.035 [facility] pH [...] SEEN /LPF [facility] Comment: Test Performed at: [facility] [address] ??[phone] ASPEN HOLLINGSWORTH DO,MPH Reflexive Urine Culture NO CULTURE INDICATED [facility] Comment: Test Performed at: [facility] [address] ??[phone] ASPEN HOLLINGSWORTH DO,MPH Urine URINE SPECIMEN OBTAINED BY CLEAN CATCH PROCEDURE / Unknown 04/12/2020 9:30 AM CDT 04/12/2020 9:31 AM CDT Perez Cervantes MD LAB - URINALYSIS ORD ERABLES Performing Organization Address [facility] Co de Phone Number [address] [address] * C-REACTIVE PROTEIN (04/12/2020 9:30 AM CDT) C-Reactive Protein 2.4 <8.0 mg/L [facility] Comment: Test Performed at: [facility] [address] ??[phone] ASPEN HOLLINGSWORTH DO,MPH Blood BLOOD SPECIMEN / Unknown 04/12/2020 9:30 AM CDT 04/12/2020 9:31 AM CDT Perez Cervantes MD LAB - CHEMISTRY ORDE [place]DE[place]O Performing Organization Address City/[facility]/ZIP Co de Phone Number [address] [address] * ERYTHROCYTE SEDIMENTATION RATE (04/12/2020 9:30 AM CDT) Erythrocyte Sedimentation Rate Westergren 16 < OR = 30 mm/h [facility] Comment: Test Performed at: [facility] ??[phone] NAVID SCOTT MD Blood BLOOD SPECIMEN / Unknown 04/12/2020 9:30 AM CDT 04/12/2020 9:31 AM CDT Perez Cervantes MD LAB - HEMATOLOGY ORD DANITA [facility] [address] [place] [address] * COMPREHENSIVE METABOLIC PANEL (04/12/2020 9:30 AM CDT) Pathologist [facility] Glucose 87 65 - 99 mg/dL [facility] Comment: ? Fasting reference interval BUN 16 7 - 25 mg/dL [facility] Creatinine 0.81 0.50 - 1.05 mg/dL [facility] Comment: For patients >49 years of age, the reference limit for Creatinine is approximately 13% higher for people identified as -Zambian. eGFR by MDRD 81 > OR = [...] 29 U/L [facility] Comment: Test Performed at: [facility] [place] [address] [place], [place] ??[phone] ASPEN HOLLINGSWORTH DO,MPH Blood BLOOD SPECIMEN / Unknown 04/12/2020 9:30 AM CDT 04/12/2020 9:31 AM CDT Perez Cervantes MD LAB - CHEMISTRY GERA DAVID [facility] [address] [place] [address] * CBC WITH DIFFERENTIAL (04/12/2020 9:30 AM [...] 0.5 % [facility] Comment: Test Performed at: [facility] ??[phone] NAVID SCOTT MD Blood BLOOD SPECIMEN / Unknown 04/12/2020 9:30 AM CDT 04/12/2020 9:31 AM CDT Perez Cervantes MD LAB - HEMATOLOGY ORD ERABLES [address] [address] documented in this encounter Visit Diagnoses Diagnosis Polyarthritis- Primary Unspecified polyarthropathy or polyarthritis, site unspecified Encounter for therapeutic drug monitoring documented in this encounter Care Teams Bellhop Service Captain Relationship Specialty Start Date End Date Jaspreet Pearl MD PCP - General 08/08/18 03/26/24 documented as of this encounter
--- OUTSIDE RECORDS SUMMARY | 2024-11-13 17:48 | XMS_ITS | Encounter Summary ---
Author Organization [facility] Address [address] [facility] [place] [address] Care Team Providers Care Cork Tile Floor Layer Name Role Phone Jaspreet Pearl MD Primary Care Provider + Encounter Details Date Type Department Care Team (Late Contact Info) Description 07/05/2020 Orders Only [facility] [address] [place] [address] Perez Cervantes MD [address] [place] [address] 2L [place] [address] Polyarthritis; Encounter for therapeutic drug [...] Visit [facility] - Rheumatology [address] [place] [address], [place] [phone] Perez Cervantes MD [address] [place] [address] 2L [place] [phone] documented as of this encounter Visit Diagnoses Diagnosis Polyarthritis Unspecified polyarthropathy or polyarthritis, site unspecified Encounter for therapeutic drug monitoring documented in this encounter Care Teams Cork Tile Floor Layer Relationship Specialty Start Date End Date Jaspreet Pearl MD PCP - General 08/08/18 03/26/24 documented as of this encounter
--- OUTSIDE RECORDS SUMMARY | 2024-11-13 17:48 | XMS_ITS | Encounter Summary ---
Author Organization [facility] Address [address] [place] [address] Care Team Providers Care Program Consultant Name Role Phone Jaspreet Pearl MD Primary Care Provider + Encounter Details Date Type Department Care Team (Late Contact Info) Description 12/23/2018 Orders Only [facility] [address] [place] [address] Perez Cervantes MD [address] [place] [address] 2L [place] [phone] Polyarthritis; Encounter for therapeutic drug monitoring Social [...] Office Visit [facility] - Rheumatology [address] [place] [address], [place] [phone] Perez Cervantes MD [address] [place] [address] 2L [place] [phone] documented as of this encounter Procedures Procedure Name Priority Date/Time Associated Diagnosis Comments URINALYSIS W/MICROSCOPIC REFLEX TO CULTURE Routine 01/05/2019 3:35 PM RECEIVING SPECIALIST Polyarthritis Encounter for therapeutic drug monitoring C-REACTIVE PROTEIN Routine 01/05/2019 3: 35 PM RECEIVING SPECIALIST Polyarthritis Encounter for therapeutic drug monitoring ERYTHROCYTE SEDIMENTATION RATE Routine 01/05/2019 3:35 PM RECEIVING SPECIALIST Polyarthritis Encounter for therapeutic drug monitoring CBC W/O DIFFERENTIAL Routine 01/05/2019 3:35 PM RECEIVING SPECIALIST Polyarthritis Encounter for therapeutic drug monitoring COMPREHENSIVE METABOLIC PANEL Routine 01/05/2019 3:35 PM RECEIVING SPECIALIST Polyarthritis Encounter for therapeutic drug monitoring documented in this encounter Results * (ABNORMAL) URINALYSIS W/MICROSCOPIC REFLEX TO CULTURE (01/05/2019 3:35 PM RECEIVING SPECIALIST) Color UA YELLOW YELLOW [facility] Appearance CLOUDY(A) CLEAR [facility] Specific [place] UA 1.011 1.001 - 1.035 [facility] pH [...] SEEN /LPF [facility] Comment: Test Performed at: [facility] [address] [place], [place] ??[address] ASPEN HOLLINGSWORTH DO,MPH Urine URINE SPECIMEN OBTAINED BY CLEAN CATCH PROCEDURE / Unknown 01/05/2019 3:35 PM RECEIVING SPECIALIST 01/05/2019 3:35 PM RECEIVING SPECIALIST Perez Cervantes MD LAB - URINALYSIS ORD ERABLES [facility] [address] [place] [address] * ERYTHROCYTE SEDIMENTATION RATE (01/05/2019 3:35 PM RECEIVING SPECIALIST) Erythrocyte Sedimentation Rate Westergren 11 < OR = 30 mm/h [facility] Comment: Test Performed at: [facility] [address] [place], [place] ??[address] ASPEN HOLLINGSWORTH DO,MPH Blood BLOOD SPECIMEN / Unknown 01/05/2019 3:35 PM RECEIVING SPECIALIST 01/05/2019 3:35 PM RECEIVING SPECIALIST Perez Cervantes MD LAB - HEMATOLOGY ORD ERABLES Performing Organization Address [facility] Co de Phone Number [facility] [address] [place] [address] * C-REACTIVE PROTEIN (01/05/2019 3:35 PM RECEIVING SPECIALIST) Pathologist [facility] C-Reactive Protein 2.6 <8.0 mg/L [facility] Comment: Test Performed at: [facility] [place] [id number] [place], [place] ??[phone] ASPEN HOLLINGSWORTH DO,MPH Blood BLOOD SPECIMEN / Unknown 01/05/2019 3:35 PM RECEIVING SPECIALIST 01/05/2019 3:35 PM RECEIVING SPECIALIST Perez Cervantes MD LAB - CHEMISTRY ORDSagar DAVID Performing Organization Address [facility] de Phone Number [facility] [address] [place] [address] * COMPREHENSIVE METABOLIC PANEL (01/05/2019 3:35 PM RECEIVING SPECIALIST) Pathologist [facility] Glucose 83 65 - 99 mg/dL [facility] Comment: ? Fasting reference interval BUN 18 7 - 25 mg/dL [facility] Creatinine 0.81 0.50 - 1.05 mg/dL [facility] Comment: For patients >49 years of age, the reference limit for Creatinine is approximately 13% higher for people identified as -Cuban. eGFR by MDRD 82 > OR = [...] 29 U/L [facility] Comment: Test Performed at: [facility] [address] [place] [address] ??[phone] ASPEN HOLLINGSWORTH DO,MPH Blood BLOOD SPECIMEN / Unknown 01/05/2019 3:35 PM RECEIVING SPECIALIST 01/05/2019 3:35 PM RECEIVING SPECIALIST Perez Cervantes MD LAB - CHEMISTRY GERA DAVID [facility] Organization Address City/State/ZIP Co de Phone Number [facility] [address] [place] [address] * CBC W/O DIFFERENTIAL (01/05/2019 3:35 PM RECEIVING SPECIALIST) White Blood Cell Count 4.7 3.8 - [...] 12.5 fL [facility] Comment: Test Performed at: [facility] [address] [place] [address] ??[phone] ASPEN HOLLINGSWORTH DO,MPH Blood BLOOD SPECIMEN / Unknown 01/05/2019 3:35 PM RECEIVING SPECIALIST 01/05/2019 3:35 PM RECEIVING SPECIALIST Perez Cervantes MD LAB - HEMATOLOGY ORD [facility] Organization Address City/State/ZIP Co de Phone Number [facility] [address] [place] [address] documented in this encounter Visit Diagnoses Diagnosis Polyarthritis Unspecified polyarthropathy or polyarthritis, site unspecified Encounter for therapeutic drug monitoring documented in this encounter Care Teams Program Consultant Relationship Specialty Start Date End Date Jaspreet Pearl MD PCP - General 08/08/18 03/26/24 documented as of this encounter
--- OUTSIDE RECORDS SUMMARY | 2024-11-13 17:48 | XMS_ITS | Encounter Summary ---
Author Organization [facility] Address [address] [facility] [place] [address] Care Team Providers Care Spring Salvage Worker Name Role Phone Jaspreet Pearl MD Primary Care Provider + Encounter Details Date Type Department Care Team (Late Contact Info) Description 09/16/2018 Orders Only [facility] [address] [place] [address] Perez Cervantes MD [address] [place] [address] 2L [place] [address] Polyarthritis; Encounter for therapeutic drug [...] Visit [facility] [address] [place] [address], [facility] [place] [phone] Perez Cervantes MD [address] [place] [address] 2L [place] [phone] documented as of this encounter Visit Diagnoses Diagnosis Polyarthritis Unspecified polyarthropathy or polyarthritis, site unspecified Encounter for therapeutic drug monitoring documented in this encounter Care Teams Spring Salvage Worker Relationship Specialty Start Date End Date Jaspreet Pearl MD PCP - General 08/08/18 03/26/24 documented as of this encounter
--- OUTSIDE RECORDS SUMMARY | 2024-11-13 17:48 | XMS_ITS | Encounter Summary ---
Author Organization [facility] Health Address [address] [facility] [place] [address] Care Team Providers Care School Cafeteria Cook Head Name Role Phone Jaspreet Pearl MD Primary Care Provider + Reason for Visit * Reason Onset Date Comments Medication Prior Auth Request 02/15/2020 en brel approval Encounter Details Date Type Department Care Team (Late st Contact Info) Description 02/15/2020 Telephone [facility] [address] [place] [address] Perez Cervantes MD [address] [phone] Medication Prior Auth Request (enbrel approval) Social [...] 2:47 PM CDT Received fax confirmation from [employer]/ [facility] approving Enbrel 50mg/mL syringes, up to 4 syringes per 28 days. Effective 01/23/2020 - 01/22/2021. ID #: [id number] Case number: [id number] polyarthritis Meds currently taking: Enbrel (12/2013), MTX (02/2013), Nabumetone (10/2015) Tried/failed meds: Prednisone (10/2012-12/2012), Tramadol (6864-0193), Meloxicam (10/2012- 12/2012),Tolmentin (11/2012- 04/2013), Naproxen (10/2015-04/2016). documented in this encounter Plan of Treatment Upcoming Encounters Date Type Department Care Team (Late st Contact Info) Description 03/27/2025 1:00 PM CDT Office Visit [facility] - Rheumatology [address] [place] [address], [place] [address] Perez Cervantes MD [address] [place] [address] [place] [address] documented as of this encounter Visit Diagnoses Not on filedocumented in this encounter Care Teams School Cafeteria Cook Head Relationship Specialty Start Date End Date Jaspreet Pearl MD PCP - General 08/08/18 03/26/24 documented as of this encounter
--- OUTSIDE RECORDS SUMMARY | 2024-11-13 17:48 | XMS_ITS | Encounter Summary ---
Author Organization [facility] Address [address] [facility] [place] [address] Care Team Providers Care Rfid Systems Engineer Name Role Phone Jaspreet Pearl MD Primary Care Provider + Encounter Details Date Type Department Care Team (Late Contact Info) Description 05/26/2019 Orders Only [facility] [address] [place] [address] Perez Cervantes MD [address] [place] [address] 2L [place] [address] Polyarthritis; Encounter for therapeutic drug monitoring Social [...] Office Visit [facility] - [facility] [address] [place] [address], [place] [phone] Perez Cervantes MD [address] [place] [address] 2L [place] [address] documented as of this encounter Procedures Procedure [...] CULTURE INDICATED [facility] Comment: Test Performed at: [employer] [address] ??[phone] ASPEN HOLLINGSWORTH DO,MPH 06/06/2019 8:19 AM CDT 06/06/2019 8:20 AM CDT Perez Cervantes MD LAB - MICROBIOLOGY O RDERABLES [facility] [address] [place] [address] * URINALYSIS W/MICROSCOPIC REFLEX TO CULTURE (06/06/2019 8:19 AM CDT) Color UA YELLOW YELLOW [facility] Appearance CLEAR CLEAR [facility] Specific [place] UA 1.020 1.001 - 1.035 [facility] pH [...] SEEN /LPF [facility] Comment: Test Performed at: [employer] [address] ??[phone] ASPEN HOLLINGSWORTH DO,MPH Granular Casts [facility] Casts UA [facility] Yeast [facility] Comments [facility] Note [facility] Comment: Test Performed at: [employer] [address] ??[phone] ASPEN HOLLINGSWORTH DO,MPH Reflexive Urine Culture NO CULTURE INDICATED [facility] Comment: Test Performed at: [employer] [address] ??[phone] ASPEN HOLLINGSWORTH DO,MPH Urine URINE SPECIMEN OBTAINED BY CLEAN CATCH PROCEDURE / Unknown 06/06/2019 8:19 AM CDT 06/06/2019 8:20 AM CDT Perez Cervantes MD LAB - URINALYSIS ORD ERABLES Performing Organization Address [facility] Co de Phone Number [address] [address] * ERYTHROCYTE SEDIMENTATION RATE (06/06/2019 8:19 AM CDT) Erythrocyte Sedimentation Rate Westergren 19 < OR = 30 mm/h [facility] Comment: Test Performed at: [employer] ??[phone] NAVID SCOTT MD Blood BLOOD SPECIMEN / Unknown 06/06/2019 8:19 AM CDT 06/06/2019 8:20 AM CDT Perez Cervantes MD LAB - HEMATOLOGY ORD ERABLES Performing Organization Address City/[facility] Co de Phone Number [address] [address] * COMPREHENSIVE METABOLIC PANEL (06/06/2019 8:19 AM CDT) Glucose 93 65 - 99 mg/dL [facility] Comment: ? Fasting reference interval BUN 14 7 - 25 mg/dL [facility] Creatinine 0.86 0.50 - 1.05 mg/dL [facility] Comment: For patients >49 years of age, the reference limit for Creatinine is approximately 13% higher for people identified as -Czech. eGFR by MDRD 76 > OR = [...] 29 U/L [facility] Comment: Test Performed at: [employer] [address] [place], [place] ??[address] ASPEN HOLLINGSWORTH DO,MPH Blood BLOOD SPECIMEN / Unknown 06/06/2019 8:19 AM CDT 06/06/2019 8:20 AM CDT Perez Cervantes MD LAB - CHEMISTRY GERA DAVID [facility] [address] [place] [address] * C-REACTIVE PROTEIN (06/06/2019 8:19 AM CDT) Pathologist [facility] C-Reactive Protein 3.8 <8.0 mg/L [facility] Comment: Test Performed at: [employer] [address] [address] [place], [place] ??[phone] ASPEN HOLLINGSWORTH DO,MPH Blood BLOOD SPECIMEN / Unknown 06/06/2019 8:19 AM CDT 06/06/2019 8:20 AM CDT Perez Cervantes MD LAB - CHEMISTRY GERA DAVID [facility] [address] [place] [address] * (ABNORMAL) CBC WITH DIFFERENTIAL (06/06/2019 8:19 [...] 0.2 % [facility] Comment: Test Performed at: [employer] [address] [place], [place] ??[address] ASPEN HOLLINGSWORTH DO,MPH Blasts [facility] nRBC [facility] Comments [facility] Comment: Test Performed at: [employer] [facility] [place] [address] [place], [place] ??[phone] ASPEN HOLLINGSWORTH DO,MPH Blood BLOOD SPECIMEN / Unknown 06/06/2019 8:19 AM CDT 06/06/2019 8:20 AM CDT Perez Cervantes MD LAB - HEMATOLOGY JUVENTINO SAMAYOA Performing Organization Address [facility] Co de Phone Number [address] [address] [place] [address] * QUANTIFERON-TB GOLD PLUS 1-TUBE (06/06/2019 8:15 AM CDT) [facility] QuantiFERON TB Gold Plus NEGATIVE NEGATIVE [facility] [...] T-lymphocytes. For additional information, please refer to https://education.[employer]/faq/RDZ767 (This link is being provided for informational/ educational purposes only.) Test Performed at: [employer] [facility] [address] ??[phone] ASPEN HOLLINGSWORTH DO,MPH 06/06/2019 8:15 AM CDT 06/06/2019 8:16 AM CDT Perez Cervantes MD LAB - CHEMISTRY GERA DAVID Performing Organization Address [facility] Co de Phone Number [address] [address] [place] [address] documented in this encounter Visit Diagnoses Diagnosis Polyarthritis Unspecified polyarthropathy or polyarthritis, site unspecified Encounter for therapeutic drug monitoring documented in this encounter Care Teams Rfid Systems Engineer Relationship Specialty Start Date End Date Jaspreet Pearl MD PCP - General 08/08/18 03/26/24 documented as of this encounter
--- OUTSIDE RECORDS SUMMARY | 2024-11-13 17:48 | XMS_ITS | Encounter Summary ---
Author Organization [facility] Address [address] [facility] [address] Care Team Providers Care Wool Broker Name Role Phone Jaspreet Pearl MD Primary Care Provider + Reason for Visit * Reason Onset Date Comments General 02/03/2019 Enbrel syringe P A--approved Encounter Details Date Type Department Care Team (Late st Contact Info) Description 02/03/2019 Telephone [facility] [address] [place] [address] Katina Blankenship, RN General (Enbrel [...] 02/03/2019 12:22 PM CDT Fax received from [employer] approving Enbrel 50 mg syringes on behalf of [facility] from 02/02/2019 through 02/03/2020; ; case ID [id number]. documented in this encounter Plan of Treatment Upcoming Encounters Date Type Department Care Team (Late st Contact Info) Description 03/27/2025 1:00 PM CDT Office Visit [facility] [facility], [place] [phone] Perez Cervantes MD [facility] [facility] 2L [place] [phone] documented as of this encounter Visit Diagnoses Not on filedocumented in this encounter Care Teams Wool Broker Relationship Specialty Start Date End Date Jaspreet Pearl MD PCP - General 08/08/18 03/26/24 documented as of this encounter
--- OUTSIDE RECORDS SUMMARY | 2024-11-13 17:48 | XMS_ITS | Encounter Summary ---
Author Organization [facility] Health Address [address] [facility] [place] [address] Care Team Providers Care Body Shop Supervisor Name Role Phone Jaspreet Pearl MD Primary Care Provider + Reason for Visit * Reason Comments Follow-up Polyarthritis Encounter Details Date Type Department Care Team (Latest Contact Info) Description 11/28/2019 1:40 PM COKE LOADER Office Visit [facility] [address] [place] [address] Perez Cervantes MD [address] [place] [address] Polyarthritis (Primary Dx); Encounter for [...] Comments Blood Pressure 110/78 11/28/2019 1:33 PM COKE LOADER Pulse 67 11/28/2019 1:33 PM COKE LOADER Temperature 36.9 ??C (98.4 ??F) 11/28/2019 1:33 PM CS T Respiratory Rate - - Oxygen Saturation 98% 11/28/2019 1:33 PM COKE LOADER Inhaled Oxygen Concentration - - Weight 76.7 kg (169 lb) 11/28/2019 1:33 PM COKE LOADER Height 170.2 cm (5' 7 ) 11/28/2019 1:33 PM COKE LOADER Body Mass Index 26.47 11/28/2019 1:33 PM COKE LOADER documented in this encounter Progress Notes * [...] tenderness; (General) Unremarkable (Extrem) HNs DIPs/Bns 5th PIPs/[facility] prominence; 1-3rd MCPs sfT0; 2-4th MTPs SfT1; No other synovitis/enthesitis. MS= bilat (Assess) Clinically stable (Plan) Continue same meds with labs q 8 weeks and yearly TB screening. RTO in 6 months. Perez Cervantes MD, FACP, FAAP, MACR Trim And Burr Operator and Pediatric Rheumatology Professor of Internal Medicine,Pediatrics, and Molecular Immunology [facility] LOADER documented in this encounter Plan of Treatment Upcoming Encounters Date Type Department Care Team (Late st Contact Info) Description 03/27/2025 1:00 PM CDT Office Visit [facility] - Rheumatology [address] [place] [address], [place] [address] Perez Cervantes MD [address] [place] [address] [place] [address] documented as of this encounter Visit Diagnoses Diagnosis Polyarthritis- Primary Unspecified polyarthropathy or polyarthritis, site unspecified Encounter for therapeutic drug monitoring documented in this encounter Care Teams Body Shop Supervisor Relationship Specialty Start Date End Date Jaspreet Pearl MD PCP - General 08/08/18 03/26/24 documented as of this encounter
--- OUTSIDE RECORDS SUMMARY | 2024-11-13 17:48 | XMS_ITS | Encounter Summary ---
Author Organization [facility] Address [address] [facility] [place] [address] Care Team Providers Care Manager Progressive Care Name Role Phone Jaspreet Pearl MD Primary Care Provider + Encounter Details Date Type Department Care Team (Late Contact Info) Description 04/12/2020 Orders Only [facility] [address] [place] [address] Perez Cervantes MD [address] [place] [address] 2L DIV [place] [address] Polyarthritis ; Encounter for therapeutic [...] Visit [facility] - Rheumatology [address] [place] [address], [place] [phone] Perez Cervantes MD [address] [place] [address] 2L DIV OF [place] [address] Scheduled Orders Name Type Priority Associated Diagnoses [...] C-REACTIVE PROTEIN (08/13/2020 7:17 AM CDT) Pathologist [facility] C-Reactive Protein 2.7 <8.0 mg/L [facility] Comment: Test Performed at: [email or web address] [place], [place] ??[address] ASPEN HOLLINGSWORTH DO,MPH Blood BLOOD SPECIMEN / Unknown 08/13/2020 7:17 AM CDT 08/13/2020 7:18 AM CDT Perez Cervantes MD LAB - CHEMISTRY GERA DAVID [facility] [address] [place] [address] * ERYTHROCYTE SEDIMENTATION RATE (08/13/2020 7:17 AM CDT) Erythrocyte Sedimentation Rate Westergren 11 < OR = 30 mm/h [facility] Comment: Test Performed at: [email or web address] [place], [place] ??[address] ASPEN HOLLINGSWORTH DO,MPH Blood BLOOD SPECIMEN / Unknown 08/13/2020 7:17 AM CDT 08/13/2020 7:18 AM CDT Perez Cervantes MD LAB - [facility] [address] [place] [address] * COMPREHENSIVE METABOLIC PANEL (08/13/2020 7:17 AM CDT) Pathologist [facility] Glucose 85 65 - 99 mg/dL [facility] Comment: ? Fasting reference interval BUN 13 7 - 25 mg/dL [facility] Creatinine 0.76 0.50 - 1.05 mg/dL [facility] Comment: For patients >49 years of age, the reference limit for Creatinine is approximately 13% higher for people identified as -Burundian. eGFR by MDRD 87 > OR = [...] 29 U/L [facility] Comment: Test Performed at: [facility] [address] [place], [place] ??[address] ASPEN HOLLINGSWORTH DO,MPH Blood BLOOD SPECIMEN / Unknown 08/13/2020 7:17 AM CDT 08/13/2020 7:18 AM CDT Perez Cervantes MD LAB - CHEMISTRY GERA DAVID [facility] [address] [place] [phone] * CBC WITH DIFFERENTIAL (08/13/2020 7:17 AM [...] 0.4 % [facility] Comment: Test Performed at: [facility] ??[address] ASPEN HOLLINGSWORTH DO,MPH Blood BLOOD SPECIMEN / Unknown 08/13/2020 7:17 AM CDT 08/13/2020 7:18 AM CDT Perez Cervantes MD LAB - HEMATOLOGY JUVENTINO SAMAYOA [facility] [address] [place] [phone] * (ABNORMAL) URINALYSIS W/MICROSCOPIC REFLEX TO CULTURE (08/13/2020 7:17 AM CDT) Color UA YELLOW YELLOW [facility] Appearance CLEAR CLEAR [facility] Specific [place] UA 1.016 1.001 - 1.035 [facility] pH [...] SEEN /LPF [facility] Comment: Test Performed at: [facility] [address] [place], [place] ??[address] ASPEN HOLLINGSWORTH DO,MPH Granular Casts [facility] Casts UA [facility] Yeast [facility] Comments [facility] Note [facility] Comment: Test Performed at: [facility] [address] [place], [place] ??[address] ASPEN HOLLINGSWORTH DO,MPH Urine URINE SPECIMEN OBTAINED BY CLEAN CATCH PROCEDURE / Unknown 08/13/2020 7:17 AM CDT 08/13/2020 7:18 AM CDT Perez Cervantes MD LAB - URINALYSIS ORD ERABLES Performing Organization Address City/State/[facility] Co de Phone Number [facility] [address] [place] [address] documented in this encounter Visit Diagnoses Diagnosis Polyarthritis- Primary Unspecified polyarthropathy or polyarthritis, site unspecified Encounter for therapeutic drug monitoring Encounter for long-term (current) use of medications Encounter for long-term (current) use of other medications documented in this encounter Care Teams Manager Progressive Care Relationship Specialty Start Date End Date Jaspreet Pearl MD PCP - General 08/08/18 03/26/24 documented as of this encounter
--- OUTSIDE RECORDS SUMMARY | 2024-11-13 17:48 | XMS_ITS | Encounter Summary ---
Author Organization [facility] Address [address] [facility] [place] [address] Care Team Providers Care Director Of Head Start Name Role Phone Jaspreet Pearl MD Primary Care Provider + Encounter Details Date Type Department Care Team (Late Contact Info) Description 01/05/2019 Orders Only [facility] [address] [place] [address] Perez Cervantes MD [address] [place] [address] 2L [place] [address] Social History Tobacco Use Types [...] Office Visit [facility] - Rheumatology [address] [place] [address], [facility] [place] [address] Perez Cervantes MD [address] [place] [address] 2L [place] [address] documented as of this encounter Procedures Procedure Name Priority Date/Time Associated Diagnosis Comments CULTURE URINE REFLEXED I 01/05/2019 3:35 PM PSYCHOMETRIC EXAMINER documented in this encounter Results * CULTURE URINE REFLEXED I (01/05/2019 3:35 PM PSYCHOMETRIC EXAMINER) Reflexive Urine Culture NO CULTURE INDICATED [facility] Comment: Test Performed at: [employer] [place] [facility] [address] [place], [place] ??[address] ASPEN HOLLINGSWORTH DO,MPH 01/05/2019 3:35 PM PSYCHOMETRIC EXAMINER 01/05/2019 3:35 PM PSYCHOMETRIC EXAMINER Perez Cervantes MD LAB - MICROBIOLOGY O RDERABLES Performing Organization Address City/State/[facility] Co de Phone Number [facility] [address] [place] [address] documented in this encounter Visit Diagnoses Not on filedocumented in this encounter Care Teams Director Of Head Start Relationship Specialty Start Date End Date Jaspreet Pearl MD PCP - General 08/08/18 03/26/24 documented as of this encounter
--- OUTSIDE RECORDS SUMMARY | 2024-11-13 17:48 | XMS_ITS | Encounter Summary ---
Author Organization [facility] Address [address] [facility] [place] [address] Care Team Providers Care Cellar Supervisor Name Role Phone Jaspreet Pearl MD Primary Care Provider + Encounter Details Date Type Department Care Team (Late Contact Info) Description 10/20/2019 Orders Only [facility] [address] [place] [address] Perez Cervantes MD [address] [place] [address] 2L [place] [address] Social History Tobacco Use Types [...] Visit [facility] - Rheumatology [address] [place] [address], [place] [phone] Perez Cervantes MD [address] [place] [address] 2L [place] [phone] documented as of this encounter Procedures Procedure Name Priority Date/Time Associated Diagnosis Comments CULTURE URINE REFLEXED I 10/20/2019 7:38 AM BENCH WORKER APPRENTICE URINALYSIS W/MICROSCOPIC REFLEX TO CULTURE 10/20/2019 7:38 AM BENCH WORKER APPRENTICE C-REACTIVE PROTEIN 10/20/2019 7: 38 AM BENCH WORKER APPRENTICE ERYTHROCYTE SEDIMENTATION RATE 10/20/2019 7:38 AM BENCH WORKER APPRENTICE CBC W AUTO DIFFERENTIAL 10/20/2019 7:38 AM BENCH WORKER APPRENTICE COMPREHENSIVE METABOLIC PANEL 10/20/2019 7:38 AM BENCH WORKER APPRENTICE documented in this encounter Results * CULTURE URINE REFLEXED I (10/20/2019 7:38 AM BENCH WORKER APPRENTICE) Reflexive Urine Culture NO CULTURE INDICATED [facility] Comment: Test Performed at: [employer] [address] [employer] [place], [place] ??[address] ASPEN HOLLINGSWORTH DO,MPH 10/20/2019 7:38 AM BENCH WORKER APPRENTICE 10/20/2019 7:39 AM BENCH WORKER APPRENTICE Perez Cervantes MD LAB - MICROBIOLOGY O JOEY Performing Organization Address [facility] Co de Phone Number [facility] [address] [place] [address] * C-REACTIVE PROTEIN (10/20/2019 7:38 AM BENCH WORKER APPRENTICE) C-Reactive Protein 2.9 <8.0 mg/L [facility] Comment: REPORT COMMENT: FASTING:YES Test Performed at: [employer] [address] [facility] [employer] ??[phone] ASPEN HOLLINGSWORTH DO,MPH 10/20/2019 7:38 AM BENCH WORKER APPRENTICE 10/20/2019 7:39 AM BENCH WORKER APPRENTICE Perez Cervantes MD LAB - CHEMISTRY GERA DAVID Performing Organization Address [facility] Co de Phone Number [facility] [address] [place] [address] * ERYTHROCYTE SEDIMENTATION RATE (10/20/2019 7:38 AM BENCH WORKER APPRENTICE) Erythrocyte Sedimentation Rate Westergren 11 < OR = 30 mm/h [facility] Comment: Test Performed at: [employer] [address] [place], [place] ??[address] ASPEN HOLLINGSWORTH DO,MPH 10/20/2019 7:38 AM BENCH WORKER APPRENTICE 10/20/2019 7:39 AM BENCH WORKER APPRENTICE Perez Cervantes MD LAB - HEMATOLOGY ORD ERABLES [facility] [address] [place] [address] * COMPREHENSIVE METABOLIC PANEL (10/20/2019 7:38 AM BENCH WORKER APPRENTICE) Glucose 80 65 - 99 mg/dL [facility] Comment: ? Fasting reference interval BUN 19 7 - 25 mg/dL [facility] Creatinine 0.81 0.50 - 1.05 mg/dL [facility] Comment: For patients >49 years of age, the reference limit for Creatinine is approximately 13% higher for people identified as -[place] Konger. eGFR by MDRD 81 > OR = [...] 29 U/L [facility] Comment: Test Performed at: [employer] [address] [place], [place] ??[address] ASPEN HOLLINGSWORTH DO,MPH 10/20/2019 7:38 AM BENCH WORKER APPRENTICE 10/20/2019 7:39 AM BENCH WORKER APPRENTICE Perez Cervantes MD LAB - CHEMISTRY GERA DAVID Performing Organization Address [facility] de Phone Number [facility] [address] [place] [address] * CBC WITH DIFFERENTIAL (10/20/2019 7:38 AM BENCH WORKER APPRENTICE) White Blood Cell Count 4.2 3.8 - [...] 0.7 % [facility] Comment: Test Performed at: [employer] [address] ??[phone] ASPEN HOLLINGSWORTH DO,MPH 10/20/2019 7:38 AM BENCH WORKER APPRENTICE 10/20/2019 7:39 AM BENCH WORKER APPRENTICE Perez Cervantes MD LAB - HEMATOLOGY JUVENTINO SAMAYOA Performing Organization Address [facility] Co de Phone Number [facility] [address] [place] [phone] * URINALYSIS W/MICROSCOPIC REFLEX TO CULTURE (10/20/2019 7:38 AM BENCH WORKER APPRENTICE) Color UA DARK YELLOW YELLOW [facility] Appearance CLEAR CLEAR [facility] Specific [place] UA 1.023 1.001 - 1.035 [facility] pH [...] SEEN /LPF [facility] Comment: Test Performed at: [employer] [address] [place] [address] ??[phone] ASPEN HOLLINGSWORTH DO,MPH Reflexive Urine Culture NO CULTURE INDICATED [facility] Comment: REPORT COMMENT: FASTING:YES Test Performed at: [employer] [address] ??[phone] ASPEN HOLLINGSWORTH DO,MPH 10/20/2019 7:38 AM BENCH WORKER APPRENTICE 10/20/2019 7:39 AM BENCH WORKER APPRENTICE Perez Cervantes MD LAB - URINALYSIS ORD ERABLES [facility] [address] [place] [phone] documented in this encounter Visit Diagnoses Not on filedocumented in this encounter Care Teams Cellar Supervisor Relationship Specialty Start Date End Date Jaspreet Pearl MD PCP - General 08/08/18 03/26/24 documented as of this encounter
--- OUTSIDE RECORDS SUMMARY | 2024-11-13 17:48 | XMS_ITS | Encounter Summary ---
Author Organization [facility] Address [address] [place] [address] Care Team Providers Care Stock Dealer Name Role Phone Jaspreet Pearl MD Primary Care Provider + Encounter Details Date Type Department Care Team (Late Contact Info) Description 09/08/2019 Orders Only [facility] [address] [place] [address] Perez Cervantes MD [address] [place] [address] 2L [place] [address] Social History Tobacco Use Types [...] Visit [facility] [address] [place] [address], [place] [phone] Perez Cervantes MD [address] [place] [address] 2L [place] [address] documented as of this encounter Procedures Procedure Name Priority Date/Time Associated Diagnosis Comments CULTURE URINE REFLEXED I 09/22/2019 7:40 AM JET PILOT URINALYSIS W/MICROSCOPIC REFLEX TO CULTURE 09/22/2019 7:40 AM JET PILOT C-REACTIVE PROTEIN 09/22/2019 7: 40 AM JET PILOT ERYTHROCYTE SEDIMENTATION RATE 09/22/2019 7:40 AM JET PILOT CBC W/O DIFFERENTIAL 09/22/2019 7:40 AM JET PILOT COMPREHENSIVE METABOLIC PANEL 09/22/2019 7:40 AM JET PILOT CULTURE URINE REFLEXED I 09/08/2019 9:34 AM CDT URINALYSIS W/MICROSCOPIC REFLEX TO CULTURE 09/08/2019 9:34 AM CDT C-REACTIVE PROTEIN 09/08/2019 9: 34 AM CDT ERYTHROCYTE SEDIMENTATION RATE 09/08/2019 9:34 AM CDT CBC W AUTO DIFFERENTIAL 09/08/2019 9:34 AM CDT COMPREHENSIVE METABOLIC PANEL 09/08/2019 9:34 AM CDT documented in this encounter Results * CULTURE URINE REFLEXED I (09/22/2019 7:40 AM JET PILOT) Reflexive Urine Culture NO CULTURE INDICATED [facility] Comment: Test Performed at: [facility] [address] [place] ??[phone] ASPEN HOLLINGSWORTH DO,MPH 09/22/2019 7:40 AM JET PILOT 09/22/2019 7:41 AM JET PILOT Perez Cervantes MD LAB - MICROBIOLOGY O RDERABLES [facility] [address] [place] [address] * C-REACTIVE PROTEIN (09/22/2019 7:40 AM JET PILOT) Pathologist [facility] C-Reactive Protein 3.6 <8.0 mg/L [facility] Comment: REPORT COMMENT: FASTING:YES Test Performed at: [facility] [address] [place] [address] ??[phone] ASPEN HOLLINGSWORTH DO,MPH 09/22/2019 7:40 AM JET PILOT 09/22/2019 7:41 AM JET PILOT Perez Cervantes MD LAB - CHEMISTRY GERA DAVID [facility] [address] [place] [address] * COMPREHENSIVE METABOLIC PANEL (09/22/2019 7:40 AM JET PILOT) Pathologist [facility] Glucose 77 65 - 99 mg/dL [facility] Comment: ? Fasting reference interval BUN 17 7 - 25 mg/dL [facility] Creatinine 0.84 0.50 - 1.05 mg/dL [facility] Comment: For patients >49 years of age, the reference limit for Creatinine is approximately 13% higher for people identified as -Nigerian. eGFR by MDRD 78 > OR = [...] U/L [facility] Comment: Test Performed at: [facility] [address] [place] ??[phone] ASPEN HOLLINGSWORTH DO,MPH 09/22/2019 7:40 AM JET PILOT 09/22/2019 7:41 AM JET PILOT Perez Cervantes MD LAB - CHEMISTRY ORDE JOANN Performing Organization Address [facility] Co de Phone Number [address] [address] * URINALYSIS W/MICROSCOPIC REFLEX TO CULTURE (09/22/2019 7:40 AM JET PILOT) Color UA YELLOW YELLOW [facility] Appearance CLEAR CLEAR [facility] Specific [place] UA 1.005 1.001 - 1.035 [facility] pH [...] SEEN /LPF [facility] Comment: Test Performed at: [facility] [address] [place] ??[address] ASPEN HOLLINGSWORTH DO,MPH Reflexive Urine Culture NO CULTURE INDICATED [facility] Comment: REPORT COMMENT: FASTING:YES Test Performed at: [facility] [place] [address] [place] ??[phone] ASPEN HOLLINGSWORTH DO,MPH 09/22/2019 7:40 AM JET PILOT 09/22/2019 7:41 AM JET PILOT Perez Cervantes MD LAB - URINALYSIS ORD DANITA Performing Organization Address [facility]/ZIP Co de Phone Number [place] [phone] [place] [address] * ERYTHROCYTE SEDIMENTATION RATE (09/22/2019 7:40 AM JET PILOT) Erythrocyte Sedimentation Rate Westergren 19 < OR = 30 mm/h [facility] Comment: Test Performed at: [facility]-[address] ??[phone] NAVID SCOTT MD 09/22/2019 7:40 AM JET PILOT 09/22/2019 7:41 AM JET PILOT Perez Cervantes MD LAB - HEMATOLOGY ORD ERABLES Performing Organization Address [facility] de Phone Number [place] [phone] * (ABNORMAL) CBC W/O DIFFERENTIAL (09/22/2019 7:40 AM JET PILOT) White Blood Cell Count 3.6(L) 3.8 - [...] 12.5 fL [facility] Comment: Test Performed at: [facility] ??[phone] NAVID SCOTT MD 09/22/2019 7:40 AM JET PILOT 09/22/2019 7:41 AM JET PILOT Perez Cervantes MD LAB - HEMATOLOGY ORD ERABLES Performing Organization Address [facility] de Phone Number [address] [address] * CULTURE URINE REFLEXED I (09/08/2019 9:34 AM CDT) Pathologist [facility] Reflexive Urine Culture NO CULTURE INDICATED [facility] Comment: Test Performed at: [facility] [address] [place] ??[phone] ASPEN HOLLINGSWORTH DO,MPH 09/08/2019 9:34 AM CDT 09/08/2019 9:35 AM CDT Perez Cervantes MD LAB - MICROBIOLOGY O RDERABLES Performing Organization Address [facility] Co de Phone Number [facility] [address] [place] [address] * C-REACTIVE PROTEIN (09/08/2019 9:34 AM CDT) C-Reactive Protein 2.8 <8.0 mg/L [facility] Comment: REPORT COMMENT: FASTING:YES Test Performed at: [facility] [address] [place] ??[phone] ASPEN HOLLINGSWORTH DO,MPH 09/08/2019 9:34 AM CDT 09/08/2019 9:35 AM CDT Perez Cervantes MD LAB - CHEMISTRY GERA DAVID [facility] [address] [place] [address] * COMPREHENSIVE METABOLIC PANEL (09/08/2019 9:34 AM CDT) Glucose 80 65 - 99 mg/dL [facility] Comment: ? Fasting reference interval BUN 18 7 - 25 mg/dL [facility] Creatinine 0.79 0.50 - 1.05 mg/dL [facility] Comment: For patients >49 years of age, the reference limit for Creatinine is approximately 13% higher for people identified as -Nigerian. eGFR by MDRD 84 > OR = [...] 29 U/L [facility] Comment: Test Performed at: [facility] [address] [place] ??[address] ASPEN HOLLINGSWORTH DO,MPH 09/08/2019 9:34 AM CDT 09/08/2019 9:35 AM CDT Perez Cervantes MD LAB - CHEMISTRY ORDE RABLES Performing Organization Address [facility] de Phone Number [facility] [phone] [place] [address] * URINALYSIS W/MICROSCOPIC REFLEX TO CULTURE (09/08/2019 9:34 AM CDT) Color UA YELLOW YELLOW [facility] Appearance CLEAR CLEAR [facility] Specific [place] UA 1.020 1.001 - 1.035 [facility] pH [...] SEEN /LPF [facility] Comment: Test Performed at: [facility] [address] [place], [place] ??[address] ASPEN HOLLINGSWORTH DO,MPH Reflexive Urine Culture NO CULTURE INDICATED [facility] Comment: REPORT COMMENT: FASTING:YES Test Performed at: [facility] [place], [place] ??[address] ASPEN HOLLINGSWORTH DO,MPH 09/08/2019 9:34 AM CDT 09/08/2019 9:35 AM CDT Perez Cervantes MD LAB - URINALYSIS ORD ERABLES Performing Organization Address [facility] de Phone Number [facility] [address] [place] [address] * ERYTHROCYTE SEDIMENTATION RATE (09/08/2019 9:34 AM CDT) Erythrocyte Sedimentation Rate Westergren 16 < OR = 30 mm/h [facility] Comment: Test Performed at: [facility] ??[phone] NAVID SCOTT MD 09/08/2019 9:34 AM CDT 09/08/2019 9:35 AM CDT Perez Cervantes MD LAB - HEMATOLOGY ORD ERABLES Performing Organization Address [facility] de Phone Number [facility] [address] [place] [address] * (ABNORMAL) CBC WITH DIFFERENTIAL (09/08/2019 9:34 [...] 0.6 % [facility] Comment: Test Performed at: [facility] ??[phone] NAVID SCOTT MD 09/08/2019 9:34 AM CDT 09/08/2019 9:35 AM CDT Perez Cervantes MD LAB - HEMATOLOGY ORD ERABLES Performing Organization Address [facility] Co de Phone Number [facility] [address] [place] [address] documented in this encounter Visit Diagnoses Not on filedocumented in this encounter Care Teams Stock Dealer Relationship Specialty Start Date End Date Jaspreet Pearl MD PCP - General 08/08/18 03/26/24 documented as of this encounter
--- OUTSIDE RECORDS SUMMARY | 2024-11-13 17:48 | XMS_ITS | Encounter Summary ---
Author Organization [facility] Address [address] [facility] [place] [address] Care Team Providers Care Account Strategist Name Role Phone Jaspreet Pearl MD Primary Care Provider + Encounter Details Date Type Department Care Team (Late Contact Info) Description 07/07/2019 Orders Only [facility] [address] [place] [address] Perez Cervantes MD [address] [place] [address] 2L [place] [address] Polyarthritis; Encounter for therapeutic drug [...] Visit [facility] [address] [place] [address], [place] [phone] Perez Cervantes MD [address] [place] [address] 2L [place] [address] documented as of this encounter Visit Diagnoses Diagnosis Polyarthritis Unspecified polyarthropathy or polyarthritis, site unspecified Encounter for therapeutic drug monitoring documented in this encounter Care Teams Account Strategist Relationship Specialty Start Date End Date Jaspreet Pearl MD PCP - General 08/08/18 03/26/24 documented as of this encounter
--- OUTSIDE RECORDS SUMMARY | 2024-11-13 17:48 | XMS_ITS | Encounter Summary ---
Author Organization [facility] Address [address] [place] [address] Care Team Providers Care Pigs Feet Cleaner Name Role Phone Jaspreet Pearl MD Primary Care Provider + Encounter Details Date Type Department Care Team (Late Contact Info) Description 09/30/2018 Orders Only [facility] [address] [place] [address] Perez Cervantes MD [address] [place] [address] 2L [place] [address] Polyarthritis; Encounter for therapeutic drug [...] Office Visit [facility] - Rhe[facility] [address] [place] [address], [facility] [place] [phone] Perez Cervantes MD [address] [place] [address] 2L [place] [address] documented as of this encounter Visit Diagnoses Diagnosis Polyarthritis Unspecified polyarthropathy or polyarthritis, site unspecified Encounter for therapeutic drug monitoring documented in this encounter Care Teams Pigs Feet Cleaner Relationship Specialty Start Date End Date Jaspreet Pearl MD PCP - General 08/08/18 03/26/24 documented as of this encounter
--- OUTSIDE RECORDS SUMMARY | 2024-11-13 17:48 | XMS_ITS | Encounter Summary ---
Author Organization [facility] Address [address] [facility] [place] [address] Care Team Providers Care Molecular Modeler Name Role Phone Jaspreet Pearl MD Primary Care Provider + Encounter Details Date Type Department Care Team (Late Contact Info) Description 09/09/2018 Orders Only [facility] [address] [place] [address] Preez Cervantes MD [address] [place] [address] 2L [place] [address] Encounter for therapeutic drug monitoring; [...] Office Visit [facility] [address] [place] [address], [facility] [place] [phone] Perez Cervantes MD [address] [place] [address] 2L [place] [address] documented as of this encounter Visit Diagnoses Diagnosis Encounter for therapeutic drug monitoring Polyarthritis Unspecified polyarthropathy or polyarthritis, site unspecified documented in this encounter Care Teams Molecular Modeler Relationship Specialty Start Date End Date Jaspreet Pearl MD PCP - General 08/08/18 03/26/24 documented as of this encounter
--- OUTSIDE RECORDS SUMMARY | 2024-11-13 17:48 | XMS_ITS | Encounter Summary ---
Author Organization [facility] Address [address] [facility] [place] [address] Care Team Providers Care Seafood Packer Name Role Phone Jaspreet Pearl MD Primary Care Provider + Encounter Details Date Type Department Care Team (Late Contact Info) Description 06/07/2020 Orders Only [facility] [address] [place] [address] Perez Cervantes MD [address] [place] [address] [place] [address] Polyarthritis; Encounter for therapeutic drug [...] Visit [facility]ology [address] [place] [address], [place] [address] Perez Cervantes MD [facility] [place] [address] documented as of this encounter Visit Diagnoses Diagnosis Polyarthritis Unspecified polyarthropathy or polyarthritis, site unspecified Encounter for therapeutic drug monitoring Encounter for long-term (current) use of medications Encounter for long-term (current) use of other medications documented in this encounter Care Teams Seafood Packer Relationship Specialty Start Date End Date Jaspreet Pearl MD PCP - General 08/08/18 03/26/24 documented as of this encounter
--- OUTSIDE RECORDS SUMMARY | 2024-11-13 17:48 | XMS_ITS | Encounter Summary ---
Author Organization [facility] Address [address] [facility] [place] [address] Care Team Providers Care Barrelhead Inspector Name Role Phone Jaspreet Pearl MD Primary Care Provider + Dayanara Plaza MD Primary Care Provider [phone] Encounter Details Date Type Department Care Team (Late Contact Info) Description 04/22/2020 Lab Requisition [facility] [address] [facility] [place] [address] Shirley Everett MD [address] [place] [address] 3 [place] [address] Social History Tobacco Use Types Packs/Day Years [...] Visit [facility] [address] [place] [address] [place] [address] Perez Cervantes MD [address] [place] [address] 2L [place] [address] documented as of this encounter Procedures Procedure Name Priority Date/Time Associated Diagnosis Comments DERMATOPATHOLOGY Routine 04/19/2020 12:0 0 AM CDT documented in this encounter Results * DERMATOPATHOLOGY (04/19/2020 12:00 AM CDT) Case Report Dermatopathology Report ? Case: [id number] ? Authorizing Provider: ??Shirley Everett MD ? Collected: ? 04/19/2020 12:00 AM ? Ordering Location: ? [facility] ?Received: ?04/22/2020 07:07 AM ? [...] The specimen consists of a shave measuring 0p1t8qd. Jar 0. Specimen B: Received is one formalin filled container labeled with the patient's name and designated central chest. The specimen consists of a shave measuring 1g5p9pk. Jar 0. 0 12:54 PM CDT DERMATOPATHOLOGY [...] characteristic determined by the Dermatopathology Laboratory at [facility], directed by Dr. Robbin Dunbar. These tests need not be, and therefore are not, approved by the [place] Food and Drug Administration. The tests are used for clinical purposes. Billing Codes Specimen Charges Stain Charges 41696 60769 1 1 0 12:54 PM CDT DERMATOPATHOLOGY LABORATORY Embedded Images 0 12:54 PM CDT DERMATOPATHOLOGY LABORATORY Pathology/Cytology TISSUE SPECIMEN FROM SKIN / Unknown 04/19/2020 04/22/2020 7:07 AM CDT Miscellaneous samples (specimen) TISSUE SPECIMEN FROM SKIN / Unknown 04/19/2020 04/22/2020 7:07 AM CDT Shirley Everett MD LAB - PATHOLOGY/CYT OLOGY ORDERABLES DERMATOPATHOLOGY LABORATORY [facility] - Department of Dermatology [place]/[address] [phone] documented in this encounter Visit Diagnoses Not on filedocumented in this encounter Care Teams Barrelhead Inspector Relationship Specialty Start Date End Date Jaspreet Pearl MD PCP - General 08/08/18 03/26/24 [place] [address] [phone] PCP - General Family Medicine 03/27/24 documented as of this encounter
--- OUTSIDE RECORDS SUMMARY | 2024-11-13 17:48 | XMS_ITS | Encounter Summary ---
Author Organization [facility] Address [address] [facility] [place] [address] Care Team Providers Care Spike Driver Name Role Phone Jaspreet Pearl MD Primary Care Provider + Encounter Details Date Type Department Care Team (Late Contact Info) Description 12/09/2018 Orders Only [facility] [address] [place] [address] Perez Cervantes MD [address] [place] [address] 2L [place] [address] Polyarthritis; Encounter for therapeutic drug monitoring Social [...] Office Visit [facility] - Rhe[facility]ology [address] [place] [address], [place] [address] Perez Cervantes MD [address] [place] [address] 2L [place] [address] documented as of this encounter Visit Diagnoses Diagnosis Polyarthritis Unspecified polyarthropathy or polyarthritis, site unspecified Encounter for therapeutic drug monitoring documented in this encounter Care Teams Spike Driver Relationship Specialty Start Date End Date Jaspreet Pearl MD PCP - General 08/08/18 03/26/24 documented as of this encounter
--- OUTSIDE RECORDS SUMMARY | 2024-11-13 17:48 | XMS_ITS | Encounter Summary ---
Author Organization [facility] Address [address] [facility] [place] [address] Care Team Providers Care Electrical Sign Servicer Name Role Phone Jaspreet Pearl MD Primary Care Provider + Encounter Details Date Type Department Care Team (Late st Contact Info) Description 11/17/2018 Orders Only [facility] [address] [place] [address] Perez Cervantes MD [address] [place] [address] 2L [place] [address] Social History Tobacco Use Types [...] Visit [facility] Rhe[facility]ology [address] [place] [address], [place] [address] Perez Cervantes MD [address] [place] [address] 2L [place] [address] documented as of this encounter Procedures Procedure Name Priority Date/Time Associated Diagnosis Comments CULTURE URINE REFLEXED I 11/17/2018 8:53 AM MEDICAL DRIVER documented in this encounter Results * CULTURE URINE REFLEXED I (11/17/2018 8:53 AM MEDICAL DRIVER) Reflexive Urine Culture NO CULTURE INDICATED [facility] Comment: Test Performed at: [facility] [address] [place], [place] ??[phone] ASPEN HOLLINGSWORTH DO,MPH 11/17/2018 8:53 AM MEDICAL DRIVER 11/17/2018 8:54 AM MEDICAL DRIVER Perez Cervantes MD LAB - MICROBIOLOGY O RDERABLES [place] [address] [place] [phone] documented in this encounter Visit Diagnoses Not on filedocumented in this encounter Care Teams Electrical Sign Servicer Relationship Specialty Start Date End Date Jaspreet Pearl MD PCP - General 08/08/18 03/26/24 documented as of this encounter
--- OUTSIDE RECORDS SUMMARY | 2024-11-13 17:48 | XMS_ITS | Encounter Summary ---
Author Organization [facility] Address [address] [facility] [place] [address] Care Team Providers Care Senior Stock Plan Administrator Name Role Phone Jaspreet Pearl MD Primary Care Provider + Encounter Details Date Type Department Care Team (Latest Contact Info) Description 06/04/2020 3:39 PM CDT - 06/04/2020 11:59 PM CDT Hospital Encounter [facility] DIAGNOSTIC RAD OP [address] [place] [address] Perez Cervantes MD [address] [facility] [address] [place] [address] Discharge Disposition: Home or Self [...] End Date Azelastine HCl 137 MCG/SPRAY SOLN [place] 2 sprays into the nose 2 times [...] Visit [facility] - Rheumatology [address] [place] [address], [facility] [place] [address] Perez Cervantes MD [address] [place] [address] [place] [address] documented as of this encounter [...] is intact. Dictated by Brodie Henry MD (vice president consulting services). Dr. STALIN Osorio have personally reviewed and [...] is intact. Dictated by Brodie Henry MD (vice president consulting services). Dr. STALIN Osorio have personally reviewed and interpreted this examination/study. This report was electronically signed by STALIN SOARES on 06/05/2020 8:11 AM . Perez Cervantes MD DIAGNOSTIC IMAGING O RDERABLES documented in this encounter Visit Diagnoses Diagnosis Encounter for therapeutic drug monitoring documented in this encounter Care Teams Senior Stock Plan Administrator Relationship Specialty Start Date End Date Jaspreet Pearl MD PCP - General 08/08/18 03/26/24 documented as of this encounter
--- OUTSIDE RECORDS SUMMARY | 2024-11-13 17:48 | XMS_ITS | Encounter Summary ---
Author Organization [facility] Address [address] [facility] [place] [address] Care Team Providers Care Director Erp Name Role Phone Jaspreet Pearl MD Primary Care Provider + Reason for Visit * Reason Comments Arthritis Encounter Details Date Type Department Care Team (Late st Contact Info) Description 06/04/2020 3:00 PM CDT Office Visit [facility] Rheumatology [address] [place] [address] Perez Cervantes MD [address] [place] [address] Encounter for therapeutic drug monitoring [...] tenderness; (general) Unremarkable (Extrem) HNs DIPs/BNs 5th PIPs/[facility] prominence; 1-3rd MCPs SfT0; 2-4th MTPs sfT1; No other donta synovitis. MS= bilat; (Assess) Clinically stable (Plan) Continue same meds with labs q 8 weeks. CXR today. RTO in 6 months. Perez Cervantes MD, FACP, FAAP, MACR Stock Analyst and Pediatric Rheumatology Professor of Internal Medicine,Pediatrics, and Molecular Immunology [facility] documented in this encounter Plan of Treatment Upcoming Encounters Date Type Department Care Team (Late st Contact Info) Description 03/27/2025 1:00 PM CDT Office Visit [facility] - Rheumatology [address] [place] [address], [place] [address] Perez Cervantes MD [address] [place] [address] 2L [place] [address] documented as of this encounter Results * XR CHEST 2VW (06/04/2020 3:55 PM CDT) Anatomical Region Laterality Modality Chest Radiographic Corin ging 06/04/2020 3:57 PM CDT Impressions 06/05/2020 8:11 AM CDT FINDINGS/IMPRESSION: There is no focal consolidation, pleural effusion, or pneumothorax. The cardiomediastinal silhouette is normal. The visible bony thorax is intact. Dictated by Brodie Henry MD (resident physician in radiology). Dr. STALIN Osorio have personally reviewed and [...] is intact. Dictated by Brodie Henry MD (resident physician in radiology). I, Dr. STALIN SOARES have personally reviewed and interpreted this examination/study. This report was electronically signed by STALIN SOARES on 06/05/2020 8:11 AM . Perez Cervantes MD DIAGNOSTIC IMAGING O RDERABLES documented in this encounter Visit Diagnoses Diagnosis Encounter for therapeutic drug monitoring- Primary Encounter for therapeutic drug monitoring documented in this encounter Care Teams Director Erp Relationship Specialty Start Date End Date Jaspreet Pearl MD PCP - General 08/08/18 03/26/24 documented as of this encounter
--- OUTSIDE RECORDS SUMMARY | 2024-11-13 17:48 | XMS_ITS | Encounter Summary ---
Author Organization [facility] Address [address] [facility] [place] [place] [address] Care Team Providers Care Gas Plant Repairer Name Role Phone Jaspreet Pearl MD Primary Care Provider + Dayanara Plaza MD Primary Care Provider [phone] Encounter Details Date Type Department Care Team (Late Contact Info) Description 05/06/2020 Lab Requisition [facility] [address] [facility] [place] [phone] Debbie Olmedo MD [address] [place] [address] Social History Tobacco Use Types Packs/Day Years [...] Visit [facility] - Rhe[facility]ology [address] [place] [address] [place] [address] Perez Cervantes MD [address] [place] [address] [place] [phone] documented as of this encounter Procedures Procedure Name Priority Date/Time Associated Diagnosis Comments DERMATOPATHOLOGY Routine 05/02/2020 12:0 0 AM CDT documented in this encounter Results * DERMATOPATHOLOGY (05/02/2020 12:00 AM CDT) Case Report Dermatopathology Report ? Case: [id number] ? Authorizing Provider: ??Debbie Olmedo MD ? Collected: ? 05/02/2020 12:00 AM ? Ordering Location: ? [facility] Lab ?Received: ?05/06/2020 12:13 PM ? [...] CARCINOMA NOT IDENTIFIED (L90.5) 0 5:31 PM [facility] DERMATOPATHOLOGY LABORATORY Clinical History A-B: R/O BCC, superficial multifocal, biopsy proven. 0 5:31 PM T DERMATOPATHOLOGY LABORATORY Gross Description Specimen A: Received is one formalin filled container labeled with the patient's name and designated right collarbone.The specimen consists of an ellipse measuring [id number] and is oriented with the notch at [...] chest.The specimen consists of an ellipse measuring [id number] and is oriented with the notch at [...] characteristic determined by the Dermatopathology Laboratory at [facility], directed by Dr. Robbin Dunbar. These tests need not be, and therefore are not, approved by the [place] Food and Drug Administration. The tests are used for clinical purposes. Billing Codes Specimen Charges Stain Charges 11506 25030 1 1 0 5:31 PM CDT DERMATOPATHOLOGY LABORATORY Embedded Images 0 5:31 PM CDT DERMATOPATHOLOGY LABORATORY Pathology/Cytology TISSUE SPECIMEN FROM SKIN / Unknown 05/02/2020 05/06/2020 12:13 PM CDT Miscellaneous samples (specimen) TISSUE SPECIMEN FROM SKIN / Unknown 05/02/2020 05/06/2020 12:13 PM CDT Debbie Olmedo MD LAB - PATHOLOGY/CYTO LOGY ORDERABLES DERMATOPATHOLOGY LABORATORY [facility] - Department of Dermatology [facility]/[address] [phone] documented in this encounter Visit Diagnoses Not on filedocumented in this encounter Care Teams Gas Plant Repairer Relationship Specialty Start Date End Date Jaspreet Pearl MD PCP - General 08/08/18 03/26/24 [place] [address] [address] PCP - General Family Medicine 03/27/24 documented as of this encounter
--- OUTSIDE RECORDS SUMMARY | 2024-11-13 17:48 | XMS_ITS | Encounter Summary ---
Author Organization [facility] Address [address] [facility] [place] [address] Care Team Providers Care Ice Plant Operator Name Role Phone Jaspreet Pearl MD Primary Care Provider + Encounter Details Date Type Department Care Team (Late st Contact Info) Description 08/19/2018 Orders Only [facility] [address] [place] [address] Perez Cervantes MD [address] [place] [address] 2L [place] [address] Polyarthritis; Encounter for therapeutic drug [...] Office Visit [facility] [address] [place] [address], [facility] [place] [phone] Perez Cervantes MD [address] [place] [address] 2L [place] [phone] documented as of this encounter Visit Diagnoses Diagnosis Polyarthritis Unspecified polyarthropathy or polyarthritis, site unspecified Encounter for therapeutic drug monitoring documented in this encounter Care Teams Ice Plant Operator Relationship Specialty Start Date End Date Jaspreet Pearl MD PCP - General 08/08/18 03/26/24 documented as of this encounter
--- OUTSIDE RECORDS SUMMARY | 2024-11-13 17:48 | XMS_ITS | Encounter Summary ---
Author Organization [facility] Address [address] [facility] [place] [address] Care Team Providers Care Drainlayer Name Role Phone Jaspreet Pearl MD Primary Care Provider + Encounter Details Date Type Department Care Team (Late Contact Info) Description 03/17/2019 Orders Only [facility] [address] [place] [address] Perez Cervantes MD [address] [place] [address] 2L [place] [address] Polyarthritis; Encounter for therapeutic drug monitoring Social [...] Office Visit [facility] [address] [place] [address], [place] [phone] Perez Cervantes MD [address] [place] [address] 2L [place] [address] documented as of this encounter Visit Diagnoses Diagnosis Polyarthritis Unspecified polyarthropathy or polyarthritis, site unspecified Encounter for therapeutic drug monitoring documented in this encounter Care Teams Drainlayer Relationship Specialty Start Date End Date Jaspreet Pearl MD PCP - General 08/08/18 03/26/24 documented as of this encounter
--- OUTSIDE RECORDS SUMMARY | 2024-11-13 17:48 | XMS_ITS | Encounter Summary ---
Author Organization [facility] Address [address] [facility] [place] [address] Care Team Providers Care Last Sawyer Name Role Phone Jaspreet Pearl MD Primary Care Provider + Encounter Details Date Type Department Care Team (Late Contact Info) Description 01/20/2019 Orders Only [facility] [address] [place] [address] Perez Cervantes MD [address] [place] [address] 2L [place] [address] Polyarthritis; Encounter for therapeutic drug monitoring Social [...] Visit [facility] [address] [place] [address], [place] [phone] Perez Cervantes MD [address] [place] [address] 2L [place] [phone] documented as of this encounter Visit Diagnoses Diagnosis Polyarthritis Unspecified polyarthropathy or polyarthritis, site unspecified Encounter for therapeutic drug monitoring documented in this encounter Care Teams Last Sawyer Relationship Specialty Start Date End Date Jaspreet Pearl MD PCP - General 08/08/18 03/26/24 documented as of this encounter
--- OUTSIDE RECORDS SUMMARY | 2024-11-13 17:48 | XMS_ITS | Encounter Summary ---
Author Organization [facility] Address [address] [facility] [place] [address] Care Team Providers Care Cargo Handler Name Role Phone Jaspreet Pearl MD Primary Care Provider + Encounter Details Date Type Department Care Team (Late Contact Info) Description 10/28/2018 Orders Only [facility] [address] [place] [address] Perez Cervantes MD [address] [place] [address] 2L DIV [place] [address] Polyarthritis; Encounter for therapeutic drug [...] Office Visit [facility], [facility] [place] [address] Perez Cervantes MD [address] [place] [address] 2L DIV [place] [address] documented as of this encounter Procedures Procedure Name Priority Date/Time Associated Diagnosis Comments URINALYSIS W/MICROSCOPIC REFLEX TO CULTURE Routine 11/17/2018 8:53 AM INDEPENDENT BEAUTY CONSULTANT Polyarthritis Encounter for therapeutic drug monitoring documented in this encounter Results * (ABNORMAL) URINALYSIS W/MICROSCOPIC REFLEX TO CULTURE (11/17/2018 8:53 AM INDEPENDENT BEAUTY CONSULTANT) Color UA YELLOW YELLOW [facility] Appearance CLOUDY(A) CLEAR [facility] Specific [place] UA 1.012 1.001 - 1.035 [facility] pH [...] MUCOUS THREADS [facility] Comment: Test Performed at: [employer] [facility] [address] [place] [address] ??[phone] ASPEN HOLLINGSWORTH DO,MPH Urine URINE SPECIMEN OBTAINED BY CLEAN CATCH PROCEDURE / Unknown 11/17/2018 8:53 AM INDEPENDENT BEAUTY CONSULTANT 11/17/2018 8:54 AM INDEPENDENT BEAUTY CONSULTANT Perez Cervantes MD LAB - URINALYSIS ORD ERABLES Performing Organization Address City/State/[facility] Co de Phone Number [facility] [address] [place] [address] documented in this encounter Visit Diagnoses Diagnosis Polyarthritis Unspecified polyarthropathy or polyarthritis, site unspecified Encounter for therapeutic drug monitoring documented in this encounter Care Teams Cargo Handler Relationship Specialty Start Date End Date Jaspreet Pearl MD PCP - General 08/08/18 03/26/24 documented as of this encounter
--- OUTSIDE RECORDS SUMMARY | 2024-11-13 17:48 | XMS_ITS | Encounter Summary ---
Author Organization [facility] Address [address] [facility] [place] [address] Care Team Providers Care Prison Guard Supervisor Name Role Phone Jaspreet Pearl MD [...] Visit [facility] [address] [place] [address], [place] [address] Perez Cervantes MD [address] [place] [address] [place] [address] documented as of this encounter Visit Diagnoses Not on filedocumented in this encounter Care Teams Prison Guard Supervisor Relationship Specialty Start Date End Date Jaspreet Pearl MD PCP - General 08/08/18 03/26/24 documented as of this encounter
--- OUTSIDE RECORDS SUMMARY | 2024-11-13 17:48 | XMS_ITS | Encounter Summary ---
Author Organization [facility] Address [address] [place] [address] Care Team Providers Care Chimney Mechanic Name Role Phone Jaspreet Pearl MD Primary Care Provider + Encounter Details Date Type Department Care Team (Late st Contact Info) Description 05/24/2020 Orders Only [facility] [address] [place] [address] Peerz Cervantes MD [address] [place] [address] 2L [place] [address] Polyarthritis; Encounter for therapeutic drug [...] Office Visit [facility] [address] [place] [address], [place] [address] Perez Cervantes MD [address] [place] [address] 2L [place] [address] documented as of this encounter Procedures Procedure [...] YELLOW [facility] Appearance CLEAR CLEAR [facility] Specific [place] UA 1.004 1.001 - 1.035 [facility] pH [...] SEEN /LPF [facility] Comment: Test Performed at: [employer] [facility] [address] [place], [place] ??[phone] ASPEN HOLLINGSWORTH DO,MPH Urine URINE SPECIMEN OBTAINED BY CLEAN CATCH PROCEDURE / Unknown 05/27/2020 8:42 AM CDT 05/27/2020 8:43 AM CDT Perez Cervantes MD LAB - URINALYSIS ORD ERABLES [facility] [address] [place] [address] * C-REACTIVE PROTEIN (05/27/2020 8:42 AM CDT) Pathologist [facility] C-Reactive Protein 3.1 <8.0 mg/L [facility] Comment: Test Performed at: [employer] [place] [address] [place], [place] ??[phone] ASPEN HOLLINGSWORTH DO,MPH Blood BLOOD SPECIMEN / Unknown 05/27/2020 8:42 AM CDT 05/27/2020 8:43 AM CDT Perez Cervantes MD LAB - CHEMISTRY ORDE RABDEMARCO Performing Organization Address [facility] Co de Phone Number [address] [address] * ERYTHROCYTE SEDIMENTATION RATE (05/27/2020 8:42 AM CDT) Pathologist [facility] Erythrocyte Sedimentation Rate Westergren 14 < OR = 30 mm/h [facility] Comment: Test Performed at: [employer] ??[phone] NAVID SCOTT MD Blood BLOOD SPECIMEN / Unknown 05/27/2020 8:42 AM CDT 05/27/2020 8:43 AM CDT Perez Cervantes MD LAB - HEMATOLOGY ORD ERABLES Performing Organization Address [facility] Co de Phone Number [address] [address] * COMPREHENSIVE METABOLIC PANEL (05/27/2020 8:42 AM CDT) Pathologist [facility] Glucose 85 65 - 99 mg/dL [facility] Comment: ? Fasting reference interval BUN 16 7 - 25 mg/dL [facility] Creatinine 0.68 0.50 - 1.05 mg/dL [facility] Comment: For patients >49 years of age, the reference limit for Creatinine is approximately 13% higher for people identified as -Bulgarian. eGFR by MDRD 97 > OR = [...] 29 U/L [facility] Comment: Test Performed at: [employer] [address] [facility] [place] ??[phone] ASPEN HOLLINGSWORTH DO,MPH Blood BLOOD SPECIMEN / Unknown 05/27/2020 8:42 AM CDT 05/27/2020 8:43 AM CDT Perez Cervantes MD LAB - CHEMISTRY GERA DAVID [facility] [address] [place] [address] * CBC WITH DIFFERENTIAL (05/27/2020 8:42 AM [...] 0.7 % [facility] Comment: Test Performed at: [employer] ??[phone] NAVID SCOTT MD Blood BLOOD SPECIMEN / Unknown 05/27/2020 8:42 AM CDT 05/27/2020 8:43 AM CDT Perez Cervantes MD LAB - HEMATOLOGY ORD ERABLES Performing Organization Address City/State/[facility] Co de Phone Number [address] [address] documented in this encounter Visit Diagnoses Diagnosis Polyarthritis Unspecified polyarthropathy or polyarthritis, site unspecified Encounter for therapeutic drug monitoring documented in this encounter Care Teams Chimney Mechanic Relationship Specialty Start Date End Date Jaspreet Pearl MD PCP - General 08/08/18 03/26/24 documented as of this encounter
--- OUTSIDE RECORDS SUMMARY | 2024-11-13 17:48 | XMS_ITS | Encounter Summary ---
Author Organization [facility] Address [address] [facility] [place] [address] Care Team Providers Care Nurses Aide Name Role Phone Jaspreet Pearl MD Primary Care Provider + Reason for Visit * Reason Onset Date Comments Medication Prior Auth Request 09/05/2018 Ap proved--Enbrel Encounter Details Date Type Department Care Team (Late st Contact Info) Description 09/05/2018 Telephone [facility] Rheumatology [address] [place] [address] Perez Cervantes MD [address] [address] Medication Prior Auth Request (Approved--Enbrel) Social History [...] mg prefilled syringe. Contacted plan, spoke with [employer] who corrected the PA and updated patient's file. They do not sent the confirmationfrom that office, made a notation on PA. Plan: [id number] documented in this encounter Plan of Treatment Upcoming Encounters Date Type Department Care Team (Late st Contact Info) Description 03/27/2025 1:00 PM CDT Office Visit [facility]ology [address] [place] [address], [place] [phone] Perez Cervantes MD [address] [place] [address] [place] [address] documented as of this encounter Visit Diagnoses Not on filedocumented in this encounter Care Teams Nurses Aide Relationship Specialty Start Date End Date Jaspreet Pearl MD PCP - General 08/08/18 03/26/24 documented as of this encounter
--- OUTSIDE RECORDS SUMMARY | 2024-11-13 17:48 | XMS_ITS | Encounter Summary ---
Author Organization [facility] Address [address] [facility] [place] [address] Care Team Providers Care Senior Rd Engineer Name Role Phone Jaspreet Pearl MD Primary Care Provider + Reason for Visit * Reason Comments Follow-up Polyarthritis Encounter Details Date Type Department Care Team (Latest Contact Info) Description 06/05/2019 1:00 PM CDT Office Visit [facility] [address] [place] [address] Perez Cervantes MD [address] [address] Polyarthritis (Primary Dx); Encounter for therapeutic drug [...] Body Mass Index 25.24 12/05/2018 1:25 PM CLOCK MECHANIC documented in this encounter Progress Notes * [...] aerobics twice/week and walking against current in [place]. (Obj) BP 128/76 (BP SITE: RIGHT ARM, BP POSITION: SITTING, BP CUFF SIZE: 11) Pulse 68 Temp 98.9 ??F(37.2 ??C) (Oral) Wt 166 lb (75.3 kg) BMI 25.24 kg/m2 (Skin) No rashes or eruptions (HEENT) No mucosal ulcers. Moist membranes. No parotid fullness; (Neck) No adenopathy/thyromegaly (Back) No CVA/LS/SI tenderness (General) Unremarkable (Extrem) HNs DIPs/BNs 5th PIPs with T1/HALFWAY prominence; 1-3rd MCPs SfT0; 2-4th MTps SfT1; No other synovitis. MS= bilat (Assess) Stable on present meds (Plan) Continue same meds with labs q 6-8 weeks and TB screening now. Also, check RF studies, Ab toSSA/SSB/Ig levels. Advise if any change in parameters. RTO in 6 months. Perez Cervantes MD, FACP, FAAP, MACR Gps Field Data Collector and Pediatric Rheumatology Professor of Internal Medicine,Pediatrics, and Molecular Immunology [facility] documented in this encounter Plan of Treatment Upcoming Encounters Date Type Department Care Team (Late st Contact Info) Description 03/27/2025 1:00 PM CDT Office Visit [facility] [address] [place] [address], [place] [address] Perez Cervantes MD [address] [place] [address] [place] [address] Scheduled Orders Name Type Priority [...] NEG AI [facility] Comment: Test Performed at: [employer] [facility] [address] [place], [place] ??[phone] ASPEN HOLLINGSWORTH DO,MPH Blood BLOOD SPECIMEN / Unknown 06/06/2019 8:15 AM CDT 06/06/2019 8:16 AM CDT Perez Cervantes MD LAB - CHEMISTRY GERA DAVID Performing Organization Address [facility] Co de Phone Number [facility] [address] [place] [address] * IMMUNOGLOBULINS IGG/IGM/IGA PANEL (06/06/2019 8:15 AM CDT) IgA 236 47 - 310 mg/dL [facility] IgG 1242 600 - 1640 mg/dL [facility] IgM 76 50 - 300 mg/dL [facility] Comment: Test Performed at: [employer] [facility] [place] [address] [place], [place] ??[phone] ASPEN HOLLINGSWORTH DO,MPH Blood BLOOD SPECIMEN / Unknown 06/06/2019 8:15 AM CDT 06/06/2019 8:16 AM CDT Perez Cervantes MD LAB - CHEMISTRY GERA DAVID Performing Organization Address [facility] Co de Phone Number [facility] [phone] [place] [address] * RHEUMATOID ARTHRITIS PANEL (06/06/2019 8:15 AM CDT) Rheumatoid Factor <14 <14 IU/mL [facility] Cyclic Citrullinated Peptide Antibody IgG <16 UNITS [facility] Comment: Reference Range Negative: ?<20 Weak Positive: ? 20-39 Moderate Positive: ?? 40-59 Strong Positive: ? >59 Test Performed at: [facility] ??[phone] ASPEN HOLLINGSWORTH DO,MPH Interpretation [facility] Comment: These serologic results may be found in 10-20% of patients with polyarthritis that is clinically and radiologically indistinguishable from RA. Test Performed at: [facility] ??[phone] ASPEN HOLLINGSWORTH DO,MPH Blood BLOOD SPECIMEN / Unknown 06/06/2019 8:15 AM CDT 06/06/2019 8:16 AM CDT Perez Cervantes MD LAB - SEROLOGY ORDER ADELAIDE [facility] [address] [place] [id number] * XR CHEST 2VW (06/05/2019 1:24 PM [...] TUCKER on 06/05/2019 1:28 PM . Perez Cervantse MD DIAGNOSTIC IMAGING O RDERABLES documented in this encounter Visit Diagnoses Diagnosis Polyarthritis- Primary Unspecified polyarthropathy or polyarthritis, site unspecified Encounter for therapeutic drug monitoring Polyarthritis Unspecified polyarthropathy or polyarthritis, site unspecified Encounter for therapeutic drug monitoring documented in this encounter Care Teams Senior Rd Engineer Relationship Specialty Start Date End Date Jaspreet Pearl MD PCP - General 08/08/18 03/26/24 documented as of this encounter
--- OUTSIDE RECORDS SUMMARY | 2024-11-13 17:48 | XMS_ITS | Encounter Summary ---
Author Organization [facility] Address [address] [facility] [place] [address] Care Team Providers Care Chicken Catcher Name Role Phone Jaspreet Pearl MD Primary Care Provider + Encounter Details Date Type Department Care Team (Late Contact Info) Description 12/02/2018 Orders Only [facility] [address] [place] [address] Perez Cervantes MD [address] [place] [address] 2L [place] [address] Encounter for therapeutic drug monitoring; [...] Visit [facility] [address] [place] [address], [facility] [place] [address] Perez Cervantes MD [address] [place] [address] 2L [place] [address] documented as of this encounter Visit Diagnoses Diagnosis Encounter for therapeutic drug monitoring Polyarthritis Unspecified polyarthropathy or polyarthritis, site unspecified documented in this encounter Care Teams Chicken Catcher Relationship Specialty Start Date End Date Jaspreet Pearl MD PCP - General 08/08/18 03/26/24 documented as of this encounter
--- OUTSIDE RECORDS SUMMARY | 2024-11-13 17:48 | XMS_ITS | Encounter Summary ---
Author Organization [facility] Address [address] [facility] [place] [address] Care Team Providers Care Sergeant At Arms Name Role Phone Jaspreet Pearl MD Primary Care Provider + Reason for Visit * Reason Comments Follow-up Polyarthritis Encounter Details Date Type Department Care Team (Late st Contact Info) Description 12/05/2018 1:30 PM ELECTRICAL SOLDERER Office Visit [facility] [address] [place] [address] Perez Cervantes MD [address] [place] [address] Encounter for therapeutic drug monitoring (Primary Dx); [...] Comments Blood Pressure 108/72 12/05/2018 1:25 PM ELECTRICAL SOLDERER Pulse 64 12/05/2018 1:25 PM ELECTRICAL SOLDERER Temperature 36.4 ??C (97.5 ??F) 12/05/2018 1:25 PM CS T Respiratory Rate - - Oxygen Saturation - - Inhaled Oxygen Concentration - - Weight 75.3 kg (166 lb) 12/05/2018 1:25 PM ELECTRICAL SOLDERER Height 172.7 cm (5' 8 ) 12/05/2018 1:25 PM ELECTRICAL SOLDERER Body Mass Index 25.24 12/05/2018 1:25 PM ELECTRICAL SOLDERER documented in this encounter Progress Notes * [...] tenderness; (General) Unremarkable (Extrem) HNs DIPs/BNs 5th PIPs/INTERMEDIATE prominence; 1-4th MCPs SfT1; No other synovitis UE/LE except 2-4th MTPs SfT1; No donta synovitis. MS= bilat; (Assess) Stable (plan) Continue same meds with labs q 6-8 weeks. RTO in 6 months. Perez Cervantes MD, FACP, FAAP, MACR Hospice Art Therapist and Pediatric Rheumatology Professor of Internal Medicine,Pediatrics, and Molecular Immunology [facility] TRICAL SOLDERER documented in this encounter Plan of Treatment Upcoming Encounters Date Type Department Care Team (Late st Contact Info) Description 03/27/2025 1:00 PM CDT Office Visit [facility] [address] [place] [address], [place] [address] Perez Cervantes MD [address] [place] [address] [place] [address] documented as of this encounter Visit Diagnoses Diagnosis Encounter for therapeutic drug monitoring- Primary Polyarthritis Unspecified polyarthropathy or polyarthritis, site unspecified documented in this encounter Care Teams Sergeant At Arms Relationship Specialty Start Date End Date Jaspreet Pearl MD [phone] (work) PCP - General 08/08/18 03/26/24 documented as of this encounter
--- OUTSIDE RECORDS SUMMARY | 2024-11-13 17:48 | XMS_ITS | Encounter Summary ---
Author Organization [facility] Address [address] [facility] [address] Care Team Providers Care Cheese Blender Name Role Phone Jaspreet Pearl MD Primary Care Provider + Reason for Visit * Reason Comments Refill Request Encounter Details Date Type Department Care Team (Late Contact Info) Description 02/01/2019 Refill [facility] [address] [place] [address] Perez Cervantes MD [address] [place] [address] 2L [facility] [place] [address] Refill Request Social History Tobacco Use Types [...] Office Visit [facility] [address] [place] [address], [place] [address] Perez Cervantes MD [address] [place] [address] 2L [place] [address] documented as of this encounter Visit Diagnoses Not on filedocumented in this encounter Care Teams Cheese Blender Relationship Specialty Start Date End Date Jaspreet Pearl MD PCP - General 08/08/18 03/26/24 documented as of this encounter
--- OUTSIDE RECORDS SUMMARY | 2024-11-13 17:48 | XMS_ITS | Encounter Summary ---
Author Organization [facility] Address [address] [facility] [place] [address] Care Team Providers Care Crime Lab Analyst Name Role Phone Jaspreet Pearl MD Primary Care Provider + Encounter Details Date Type Department Care Team (Late Contact Info) Description 10/21/2018 Orders Only [facility] [address] [place] [address] Perez Cervantes MD [address] [place] [address] 2L [place] [address] Encounter for therapeutic drug monitoring; [...] Visit [facility] [address] [place] [address], [facility] [place] [address] Perez Cervantes MD [address] [place] [address] 2L [place] [address] documented as of this encounter Visit Diagnoses Diagnosis Encounter for therapeutic drug monitoring Polyarthritis Unspecified polyarthropathy or polyarthritis, site unspecified documented in this encounter Care Teams Crime Lab Analyst Relationship Specialty Start Date End Date Jaspreet Pearl MD PCP - General 08/08/18 03/26/24 documented as of this encounter
--- OUTSIDE RECORDS SUMMARY | 2024-11-13 17:48 | XMS_ITS | Encounter Summary ---
Author Organization [facility] Address [address] [facility] [place] [address] Care Team Providers Care Forensic Document Examiner Name Role Phone Jaspreet Pearl MD Primary Care Provider + Encounter Details Date Type Department Care Team (Late Contact Info) Description 02/03/2019 Orders Only [facility] [address] [place] [address] Perez Cervantes MD [address] [place] [address] 2L [place] [address] Polyarthritis; Encounter for therapeutic drug monitoring Social [...] Visit [facility] [address] [place] [address], [place] [address] Perez Cervantes MD [address] [place] [address] 2L [place] [address] documented as of this encounter Visit Diagnoses Diagnosis Polyarthritis Unspecified polyarthropathy or polyarthritis, site unspecified Encounter for therapeutic drug monitoring documented in this encounter Care Teams Forensic Document Examiner Relationship Specialty Start Date End Date Jaspreet Pearl MD PCP - General 08/08/18 03/26/24 documented as of this encounter
--- OUTSIDE RECORDS SUMMARY | 2024-11-13 17:48 | XMS_ITS | Encounter Summary ---
Author Organization [facility] Address [address] [facility] [place] [address] Care Team Providers Care Sexual Assault Social Worker Name Role Phone Jaspreet Pearl MD Primary Care Provider + Encounter Details Date Type Department Care Team (Late Contact Info) Description 01/13/2019 Orders Only [facility] [address] [place] [address] Perez Cervantes MD [address] [place] [address] 2L [place] [address] Encounter for therapeutic drug monitoring; Polyarthritis Social [...] Office Visit [facility] [address] [place] [address], [place] [address] Perez Cervantes MD [address] [place] [address] 2L [place] [address] documented as of this encounter Visit Diagnoses Diagnosis Encounter for therapeutic drug monitoring Polyarthritis Unspecified polyarthropathy or polyarthritis, site unspecified documented in this encounter Care Teams Sexual Assault Social Worker Relationship Specialty Start Date End Date Jaspreet Pearl MD PCP - General 08/08/18 03/26/24 documented as of this encounter
--- OUTSIDE RECORDS SUMMARY | 2024-11-13 17:48 | XMS_ITS | Encounter Summary ---
Author Organization [facility] Address [address] [place] [address] Care Team Providers Care Baseball Hand Sewer Name Role Phone Jaspreet Pearl MD Primary Care Provider + Reason for Visit * Reason Onset Date Comments MEDICATION REFILL 01/25/2019 MEDICATION REFILL 10/05/2019 Encounter Details Date Type Department Care Team (Late Contact Info) Description 01/25/2019 Refill [facility] [address] [place] [address] Perez Cervantes MD [address] [place] [address] [facility] [place] [address] MEDICATION REFILL; MEDICATION REFILL Social History Tobacco [...] Visit [facility] [address] [place] [address], [place] [address] Perez Cervantes MD [address] [place] [address] 2[place] [address] documented as of this encounter Visit Diagnoses Not on filedocumented in this encounter Care Teams Baseball Hand Sewer Relationship Specialty Start Date End Date Jaspreet Pearl MD PCP - General 08/08/18 03/26/24 documented as of this encounter
--- OUTSIDE RECORDS SUMMARY | 2024-11-13 17:48 | XMS_ITS | Encounter Summary ---
Author Organization [facility] Address [address] [place] [address] Care Team Providers Care General Merchandise Manager Name Role Phone Jaspreet Pearl MD Primary Care Provider + Encounter Details Date Type Department Care Team (Late Contact Info) Description 08/02/2020 Orders Only [facility] [address] [place] [address] Perez Cervantes MD [address] [place] [address] 2L [place] [address] Polyarthritis; Encounter for therapeutic drug [...] Visit [facility] [address] [place] [address], [place] [address] Perez Cervantes MD [address] [place] [address] 2[address] [place] [address] documented as of this encounter Procedures Procedure [...] [facility] Comment: ??CULTURE, URINE, ROUTINE ?Micro Number: ?[id number] ??Test Status: ? Final ??Specimen Source: ?? URINE ??Specimen Quality: ??Adequate ??Result: ?Less than 10,000 CFU/mL of single Gram negative ? organism isolated. No further testing will be ? performed. If clinically indicated, recollection ? using a method to minimize contamination, with ? prompt transfer to Urine Culture Transport Tube, ? is recommended. REPORT COMMENT: FASTING:YES Test Performed at: [facility] [place] [address] [place], [place] ??[phone] ASPEN HOLLINGSWORTH DO,MPH 08/13/2020 7:17 AM CDT 08/13/2020 7:18 AM CDT Perez Cervantes MD LAB - MICROBIOLOGY O JOEY Performing Organization Address [facility] Phone Number [facility] [address] [place] [address] * CULTURE URINE REFLEXED (08/13/2020 7:17 AM CDT) Reflexive Urine Culture See Below [facility] Comment: CULTURE INDICATED - RESULTS TO FOLLOW Test Performed at: [facility] [place] [address] [place], [place] ??[address] ASPEN HOLLINGSWORTH DO,MPH 08/13/2020 7:17 AM CDT 08/13/2020 7:18 AM CDT Perez Cervantes MD LAB - MICROBIOLOGY O JOEY Performing Organization Address [facility] de Phone Number [facility] [address] [place] [address] * C-REACTIVE PROTEIN (08/13/2020 7:17 AM CDT) C-Reactive Protein 2.7 <8.0 mg/L [facility] Comment: Test Performed at: [facility] [address] [place], [place] ??[phone] ASPEN HOLLINGSWORTH DO,MPH Blood BLOOD SPECIMEN / Unknown 08/13/2020 7:17 AM CDT 08/13/2020 7:18 AM CDT Perez Cervantes MD LAB - CHEMISTRY GERA DAVID Performing Organization Address [facility]/State/ZIP Co de Phone Number [facility] [address] [place] [address] * ERYTHROCYTE SEDIMENTATION RATE (08/13/2020 7:17 AM CDT) Erythrocyte Sedimentation Rate Westergren 11 < OR = 30 mm/h [facility] Comment: Test Performed at: [facility] [address] [place], [place] ??[address] ASPEN HOLLINGSWORTH DO,MPH Blood BLOOD SPECIMEN / Unknown 08/13/2020 7:17 AM CDT 08/13/2020 7:18 AM CDT Perez Cervantes MD LAB - HEMATOLOGY ORD ERABLES [facility] [address] [place] [address] * COMPREHENSIVE METABOLIC PANEL (08/13/2020 7:17 AM CDT) Glucose 85 65 - 99 mg/dL [facility] Comment: ? Fasting reference interval BUN 13 7 - 25 mg/dL [facility] Creatinine 0.76 0.50 - 1.05 mg/dL [facility] Comment: For patients >49 years of age, the reference limit for Creatinine is approximately 13% higher for people identified as -Montenegrin. eGFR by MDRD 87 > OR = [...] 29 U/L [facility] Comment: Test Performed at: [facility] [place] [address] [place], [place] ??[address] ASPEN HOLLINGSWORTH DO,MPH Blood BLOOD SPECIMEN / Unknown 08/13/2020 7:17 AM CDT 08/13/2020 7:18 AM CDT Perez Cervantes MD LAB - CHEMISTRY GERA DAVID Performing Organization Address City/[facility] Co de Phone Number [facility] [address] [place] [phone] * CBC WITH DIFFERENTIAL (08/13/2020 7:17 AM [...] 0.4 % [facility] Comment: Test Performed at: [facility] [address] [place], [place] ??[address] ASPEN HOLLINGSWORTH DO,MPH Blood BLOOD SPECIMEN / Unknown 08/13/2020 7:17 AM CDT 08/13/2020 7:18 AM CDT Perze Cervantes MD LAB - HEMATOLOGY ORD DANITA Performing Organization Address City/[facility] Co de Phone Number [facility] [address] [place] [address] * (ABNORMAL) URINALYSIS W/MICROSCOPIC REFLEX TO CULTURE (08/13/2020 7:17 AM CDT) Color UA YELLOW YELLOW [facility] Appearance CLEAR CLEAR [facility] Specific [place] UA 1.016 1.001 - 1.035 [facility] pH [...] SEEN /LPF [facility] Comment: Test Performed at: [facility] [address] [place], [place] ??[address] ASPEN HOLLINGSWORTH DO,MPH Granular Casts [facility] Casts UA [facility] Yeast [facility] Comments [facility] Note [facility] Comment: Test Performed at: [email or web address] [address] [place], [place] ??[address] ASPEN HOLLINGSWORTH DO,MPH Urine URINE SPECIMEN OBTAINED BY CLEAN CATCH PROCEDURE / Unknown 08/13/2020 7:17 AM CDT 08/13/2020 7:18 AM CDT Perez Cervantes MD LAB - URINALYSIS ORD ERABLES Performing Organization Address City/State/[facility] Co de Phone Number [facility] [address] [place] [address] documented in this encounter Visit Diagnoses Diagnosis Polyarthritis Unspecified polyarthropathy or polyarthritis, site unspecified Encounter for therapeutic drug monitoring Encounter for long-term (current) use of medications Encounter for long-term (current) use of other medications documented in this encounter Care Teams General Merchandise Manager Relationship Specialty Start Date End Date Jaspreet Pearl MD PCP - General 08/08/18 03/26/24 documented as of this encounter
--- OUTSIDE RECORDS SUMMARY | 2024-11-13 17:48 | XMS_ITS | Encounter Summary ---
Author Organization [facility] Address [address] [facility] [place] [address] Care Team Providers Care Para Operator Name Role Phone Jaspreet Pearl MD Primary Care Provider + Encounter Details Date Type Department Care Team (Latest Contact Info) Description 06/05/2019 1:20 PM CDT - 06/05/2019 11:59 PM CDT Hospital Encounter [facility] RAD OP [address] [place] [address] Perez Cervantes MD [address] [place] [address] Discharge Disposition: Home or Self [...] End Date Azelastine HCl 137 MCG/SPRAY SOLN [place] 2 sprays into the nose 2 times [...] [facility] [address] [place] [address], [facility] [place] [address] Perez Cervantes MD [address] [place] [address] [place] [address] documented as of this encounter Procedures Procedure [...] monitoring documented in this encounter Care Teams Para Operator Relationship Specialty Start Date End Date Jaspreet Pearl MD PCP - General 08/08/18 03/26/24 documented as of this encounter
--- OUTSIDE RECORDS SUMMARY | 2024-11-13 17:48 | XMS_ITS | Encounter Summary ---
Author Organization [facility] Address [address] [facility] [place] [place] [address] Care Team Providers Care Sole Layer Name Role Phone Jaspreet Pearl MD Primary Care Provider + Encounter Details Date Type Department Care Team (Late Contact Info) Description 05/23/2020 Orders Only [facility] [address] [place] [address] Perez Cervantes MD [address] [place] [address] 2L [place] [address] Encounter for therapeutic drug monitoring [...] Visit [facility] [address] [place] [address], [place] [address] Perez Cervantes MD [address] [place] [address] 2L [place] [address] Scheduled Orders Name Type Priority Associated Diagnoses Orde r Schedule [facility] TB-G[facility] Lab Routine Encounter for therapeutic drug monitoring Ordered: 05/23/2020 documented as of this encounter Visit Diagnoses Diagnosis Encounter for therapeutic drug monitoring- Primary documented in this encounter Care Teams Sole Layer Relationship Specialty Start Date End Date Jaspreet Pearl MD PCP - General 08/08/18 03/26/24 documented as of this encounter
--- OUTSIDE RECORDS SUMMARY | 2024-11-13 17:48 | XMS_ITS | Encounter Summary ---
Author Organization [facility] Address [address] [facility] [place] [address] Care Team Providers Care Healthcare Manager Name Role Phone Jaspreet Pearl MD Primary Care Provider + Encounter Details Date Type Department Care Team (Late st Contact Info) Description 08/12/2018 Orders Only [facility] [address] [place] [address] Perez Cervantes MD [address] [place] [address] 2L [place] [address] Social History Tobacco Use Types [...] Visit [facility] [address] [place] [address], [place] [address] Perez Cervantes MD [address] [place] [address] 2L [place] [address] documented as of this encounter Procedures Procedure Name Priority Date/Time Associated Diagnosis Comments CULTURE URINE REFLEXED I 08/12/2018 7:35 AM CDT documented in this encounter Results * CULTURE URINE REFLEXED I (08/12/2018 7:35 AM CDT) Reflexive Urine Culture NO CULTURE INDICATED [facility] Comment: REPORT COMMENT: FASTING:YES Test Performed at: [facility] [address] [place], [place] ??[address] ASPEN HOLLINGSWORTH DO,MPH 08/12/2018 7:35 AM CDT 08/12/2018 7:36 AM CDT Perez Cervantes MD LAB - MICROBIOLOGY O RDERABLES [facility] [address] [place] [address] documented in this encounter Visit Diagnoses Not on filedocumented in this encounter Care Teams Healthcare Manager Relationship Specialty Start Date End Date Jaspreet Pearl MD PCP - General 08/08/18 03/26/24 documented as of this encounter
--- OUTSIDE RECORDS SUMMARY | 2024-11-13 17:49 | XMS_ITS | Encounter Summary ---
Author Organization [facility] Address [address] [facility] [place] [address] Care Team Providers Care Quill Skinner Name Role Phone Toney Munroe MD Primary Care Provider Encounter Details Date Type Department Care Team (Late Contact Info) Description 07/08/2018 Orders Only [facility] [address] [place] [address] Perez Cervantes MD [address] [place] [address] 2L [place] [address] Polyarthritis; Encounter for therapeutic drug [...] Visit [facility] [address] [place] [address], [facility] [place] [address] Perez Cervantes MD [address] [place] [address] 2L [place] [address] documented as of this encounter Visit Diagnoses Diagnosis Polyarthritis Unspecified polyarthropathy or polyarthritis, site unspecified Encounter for therapeutic drug monitoring documented in this encounter Care Teams Quill Skinner Relationship Specialty Start Date End Date Toney Munroe MD PCP - General Family Medicine 02/10/16 07/28/18 documented as of this encounter
--- OUTSIDE RECORDS SUMMARY | 2024-11-13 17:49 | XMS_ITS | Encounter Summary ---
Author Organization [facility] Address [address] [place] [address] Care Team Providers Care Explosives Worker Name Role Phone Toney Munroe MD Primary Care Provider Encounter Details Date Type Department Care Team (Late Contact Info) Description 06/17/2018 Orders Only [facility] [address] [place] [address] Perez Cervantes MD [address] [place] [address] 2L [place] [address] Encounter for therapeutic drug monitoring; [...] Visit [facility] [address] [place] [address], [place] [address] Perez Cervantes MD [address] [place] [address] 2L [place] [address] documented as of this encounter Visit Diagnoses Diagnosis Encounter for therapeutic drug monitoring Polyarthritis Unspecified polyarthropathy or polyarthritis, site unspecified documented in this encounter Care Teams Explosives Worker Relationship Specialty Start Date End Date Toney Munroe MD PCP - General Family Medicine 02/10/16 07/28/18 documented as of this encounter
--- OUTSIDE RECORDS SUMMARY | 2024-11-13 17:49 | XMS_ITS | Encounter Summary ---
Author Organization [facility] Address [address] [place] [address] Care Team Providers Care Rn Oncology Name Role Phone Toney Munroe MD Primary Care Provider [phone] Encounter Details Date Type Department Care Team (Late Contact Info) Description 03/25/2018 Orders Only [facility] [address] [place] [address] Perez Cervantes MD [address] [place] [address] 2L [place] [address] Encounter for therapeutic drug monitoring; [...] Visit [facility] [address] [place] [address], [facility] [place] [address] Perez Cervantes MD [address] [place] [address] 2L [place] [address] documented as of this encounter Visit Diagnoses Diagnosis Encounter for therapeutic drug monitoring Polyarthritis Unspecified polyarthropathy or polyarthritis, site unspecified documented in this encounter Care Teams Rn Oncology Relationship Specialty Start Date End Date Toney Munroe MD PCP - General Family Medicine 02/10/16 07/28/18 documented as of this encounter
--- OUTSIDE RECORDS SUMMARY | 2024-11-13 17:49 | XMS_ITS | Encounter Summary ---
Author Organization [facility] Address [address] [facility] [place] [address] Care Team Providers Care Manager Qa Name Role Phone Toney Munroe MD Primary Care Provider Encounter Details Date Type Department Care Team (Late Contact Info) Description 06/01/2018 Orders Only [facility] [address] [place] [address] Perez Cervantes MD [address] [place] [address] 2L [place] [address] Polyarthritis ; Encounter for therapeutic [...] Visit [facility] [address] [place] [address], [facility] [place] [address] Perez Cervantes MD [address] [place] [address] 2L [place] [address] documented as of this encounter Procedures Procedure [...] Comment: REPORT COMMENT: FASTING:YES Test Performed at: [facility] ??[phone] NAVID SCOTT MD Blood BLOOD SPECIMEN / Unknown 06/01/2018 8:49 AM CDT 06/01/2018 8:52 AM CDT Perez Cervantes MD LAB - HEMATOLOGY ORD ERABLES Performing Organization Address [facility] Co de Phone Number [address] [address] * C-REACTIVE PROTEIN (06/01/2018 8:49 AM CDT) C-Reactive Protein 4.1 <8.0 mg/L [facility] Comment: REPORT COMMENT: FASTING:YES Test Performed at: [facility] [address] ??[phone] ASPEN HOLLINGSWORTH DO,MPH Blood BLOOD SPECIMEN / Unknown 06/01/2018 8:49 AM CDT 06/01/2018 8:52 AM CDT Perez Cervantes MD LAB - CHEMISTRY GERA DAVID Performing Organization Address [facility] Co de Phone Number [address] [address] * COMPREHENSIVE METABOLIC PANEL (06/01/2018 8:49 AM CDT) Glucose 90 65 - 99 mg/dL [facility] Comment: ? Fasting reference interval BUN 14 7 - 25 mg/dL [facility] Creatinine 0.82 0.50 - 1.05 mg/dL [facility] Comment: For patients >49 years of age, the reference limit for Creatinine is approximately 13% higher for people identified as -Indonesian. eGFR by MDRD 81 > OR = [...] Comment: REPORT COMMENT: FASTING:YES Test Performed at: [facility] ??[address] ASPEN HOLLINGSWORTH DO,MPH Blood BLOOD SPECIMEN / Unknown 06/01/2018 8:49 AM CDT 06/01/2018 8:52 AM CDT Perez Cervantes MD LAB - CHEMISTRY GERA DAVID [facility] Organization Address City/State/[facility] Co de Phone Number [facility] [address] [place] [address] documented in this encounter Visit Diagnoses Diagnosis Polyarthritis- Primary Unspecified polyarthropathy or polyarthritis, site unspecified Encounter for therapeutic drug monitoring documented in this encounter Care Teams Manager Qa Relationship Specialty Start Date End Date Toney Munroe MD PCP - General Family Medicine 02/10/16 07/28/18 documented as of this encounter
--- OUTSIDE RECORDS SUMMARY | 2024-11-13 17:49 | XMS_ITS | Encounter Summary ---
Author Organization [facility] Address [address] [facility] [place] [address] Care Team Providers Care Marine Biologist Name Role Phone Clement Young MD Primary Care Provider [phone] Jaspreet Pearl MD Primary Care Provider + Encounter Details Date Type Department Care Team (Late st Contact Info) Description 08/05/2018 Orders Only [facility] [address] [place] [address] Katina Blankenship RN Encounter for therapeutic drug [...] Visit [facility] [address] [place] [address], [facility] [place] [address] Perez Cervantes MD [address] [place] [address] [place] [address] documented as of this encounter Visit Diagnoses Diagnosis Encounter for therapeutic drug monitoring Encounter for long-term (current) use of medications Encounter for long-term (current) use of other medications Polyarthritis Unspecified polyarthropathy or polyarthritis, site unspecified Primary osteoarthritis involving multiple joints documented in this encounter Care Teams Marine Biologist Relationship Specialty Start Date End Date Clement Young MD PCP - General 07/29/18 08/07/18 Jasperet Pearl MD PCP - General 08/08/18 03/26/24 documented as of this encounter
--- OUTSIDE RECORDS SUMMARY | 2024-11-13 17:49 | XMS_ITS | Encounter Summary ---
Author Organization [facility] Address [address] [facility] [place] [address] Care Team Providers Care Senior Staff Psychologist Name Role Phone Clement Young MD Primary Care Provider Encounter Details Date Type Department Care Team (Late Contact Info) Description 07/29/2018 Orders Only [facility] [address] [place] [address] Perez Cervantes MD [address] [place] [address] 2L [place] [address] Encounter for therapeutic drug monitoring; [...] Visit [facility] [address] [place] [address], [facility] [place] [address] Perez Cervantes MD [address] [place] [address] 2L [place] [address] documented as of this encounter Visit Diagnoses Diagnosis Encounter for therapeutic drug monitoring Polyarthritis Unspecified polyarthropathy or polyarthritis, site unspecified documented in this encounter Care Teams Senior Staff Psychologist Relationship Specialty Start Date End Date Clement Young MD PCP - General 07/29/18 08/07/18 documented as of this encounter
--- OUTSIDE RECORDS SUMMARY | 2024-11-13 17:49 | XMS_ITS | Encounter Summary ---
Author Organization [facility] Address [address] [facility] [place] [address] Care Team Providers Care Sap Pi Architect Name Role Phone Toney Munroe MD Primary Care Provider [phone] Encounter Details Date Type Department Care Team (Latest Contact Info) Description 08/13/2014 Hospital Outpatient Visit Historic [facility]IENT SERVICES [address] [place] [address] Perez Cervantes MD [address] [place] [address] 2L [place] [address] Discharge Disposition: Home or Self [...] Visit [facility]ology [address] [place] [address], [place] [address] Perez Cervantes MD [address] [place] [address] 2L [place] [address] documented as of this encounter Procedures Procedure [...] monitoring documented in this encounter Care Teams Sap Pi Architect Relationship Specialty Start Date End Date Toney Munroe MD PCP - General Family Medicine 02/10/16 07/28/18 documented as of this encounter
--- OUTSIDE RECORDS SUMMARY | 2024-11-13 17:49 | XMS_ITS | Encounter Summary ---
Author Organization [facility] Address [address] [facility] [place] [address] Care Team Providers Care Motor Bike Mechanic Name Role Phone Toney Munreo MD Primary Care Provider [phone] Encounter Details Date Type Department Care Team (Late Contact Info) Description 04/15/2018 Orders Only [facility] Rheumatology [facility] [place] [address] Katina Blankenship, RN Encounter for therapeutic drug [...] Description 03/27/2025 1:00 PM CDT Office Visit [facility] - Rheumatology [address] [place] [address], [facility] [place] [phone] Perez Cervantes MD [address] [place] [address] [place] [address] documented as of this encounter Visit Diagnoses Diagnosis Encounter for therapeutic drug monitoring Encounter for long-term (current) use of medications Encounter for long-term (current) use of other medications Polyarthritis Unspecified polyarthropathy or polyarthritis, site unspecified Primary osteoarthritis involving multiple joints documented in this encounter Care Teams Motor Bike Mechanic Relationship Specialty Start Date End Date Toney Munroe MD PCP - General Family Medicine 02/10/16 07/28/18 documented as of this encounter
--- OUTSIDE RECORDS SUMMARY | 2024-11-13 17:49 | XMS_ITS | Encounter Summary ---
Author Organization [facility] Address [address] [facility] [place] [address] Care Team Providers Care Recreational Programs Director Name Role Phone Toney Munroe MD Primary Care Provider Encounter Details Date Type Department Care Team (Latest Contact Info) Description 02/13/2016 9:05 AM CDT - 02/13/2016 11:59 PM CDT Hospital Encounter [facility] [address] [place] [address] Flip Garcia MD [address] [place] [address] Discharge Disposition: Home or Self Care Social [...] Visit [facility] Rheumatology [address] [place] [address], [place] [address] Perez Cervantes MD [address] [place] [address] [place] [address] documented as of this encounter Procedures Procedure [...] thigh documented in this encounter Care Teams Recreational Programs Director Relationship Specialty Start Date End Date Toney Munroe MD PCP - General Family Medicine 02/10/16 07/28/18 documented as of this encounter
--- OUTSIDE RECORDS SUMMARY | 2024-11-13 17:49 | XMS_ITS | Encounter Summary ---
Author Organization [facility] Address [address] [facility] [place] [address] Care Team Providers Care Inspector Metal Can Name Role Phone oTney Munroe MD Primary Care Provider [phone] Encounter Details Date Type Department Care Team (Late Contact Info) Description 07/10/2016 Orders Only [facility] SURGERY [address] [place] [address] Lacie Anna MD [address] [place] [address]. [place] [address] Social History Tobacco Use Types Packs/Day Years [...] Visit [facility] [address] [place] [address], [place] [address] Perez Cervantes MD [address] [place] [address] [place] [address] documented as of this encounter Visit Diagnoses Not on filedocumented in this encounter Care Teams Inspector Metal Can Relationship Specialty Start Date End Date Toney Munroe MD PCP - General Family Medicine 02/10/16 07/28/18 documented as of this encounter
--- OUTSIDE RECORDS SUMMARY | 2024-11-13 17:49 | XMS_ITS | Encounter Summary ---
Author Organization [facility] Address [address] [facility] [place] [address] Care Team Providers Care Cordage Sales Representative Name Role Phone Toney Munroe MD Primary Care Provider [phone] Encounter Details Date Type Department Care Team (Late Contact Info) Description 03/18/2018 Orders Only [facility] Rheumatology [facility] [place] [address] Katina Blankenship, RN Encounter for therapeutic drug [...] [facility] [address] [place] [address], [facility] [place] [address] Perez Cervantes MD [address] [place] [address] [place] [address] documented as of this encounter Procedures Procedure [...] REPORT COMMENT: SPECIMEN TYPE->URINE Test Performed at: [facility] [id number] [place] [address] ??[phone] ASPEN HOLLINGSWORTH DO,MPH 03/18/2018 7:35 AM CDT 03/18/2018 7:35 AM CDT Perez Cervantes MD LAB - MICROBIOLOGY O RDERABLES [facility] [address] [place] [address] * URINALYSIS W/MICROSCOPIC REFLEX TO CULTURE (03/18/2018 7:35 AM CDT) Color UA YELLOW YELLOW [facility] Appearance CLEAR CLEAR [facility] Specific Bend UA 1.019 1.001 - 1.035 [facility] pH [...] SEEN /LPF [facility] Comment: Test Performed at: [facility] [address] [place], [place] ??[phone] ASPEN HOLLINGSWORTH DO,MPH Granular Casts [facility] Casts UA [facility] Yeast [facility] Comments [facility] Note [facility] Comment: Test Performed at: [facility] [address] [place], [place] ??[phone] ASPEN HOLLINGSWORTH DO,MPH Urine URINE SPECIMEN OBTAINED BY CLEAN CATCH PROCEDURE / Unknown 03/18/2018 7:35 AM CDT 03/18/2018 7:35 AM CDT Perez Cervantes MD LAB - URINALYSIS ORD ERABLES Performing Organization Address [facility] Co de Phone Number [address] [address] * (ABNORMAL) ERYTHROCYTE SEDIMENTATION RATE (03/18/2018 7:35 AM CDT) Erythrocyte Sedimentation Rate Westergren 36(H) < OR = 30 mm/h [facility] Comment: Test Performed at: [facility] ??[phone] NAVID SCOTT MD Blood BLOOD SPECIMEN / Unknown 03/18/2018 7:35 AM CDT 03/18/2018 7:35 AM CDT Perez Cervantes MD LAB - HEMATOLOGY ORD ERABLES Performing Organization Address [facility] Co de Phone Number [address] [address] * (ABNORMAL) C-REACTIVE PROTEIN (03/18/2018 7:35 AM CDT) Pathologist [facility] C-Reactive Protein 28.9(H) <8.0 mg/L [facility] Comment: Test Performed at: [facility] [address] ??[phone] ASPEN HOLLINGSWORTH DO,MPH Blood BLOOD SPECIMEN / Unknown 03/18/2018 7:35 AM CDT 03/18/2018 7:35 AM CDT Perez Cervantes MD LAB - CHEMISTRY GERA DAVID [address] [address] * CBC W AUTO DIFFERENTIAL (03/18/2018 7:35 AM CDT) [facility] White Blood Cell Count 6.3 3.8 - [...] 0.5 % [facility] Comment: Test Performed at: [facility] ??[phone] NAVID SCOTT MD Blood BLOOD SPECIMEN / Unknown 03/18/2018 7:35 AM CDT 03/18/2018 7:35 AM CDT Perez Cervantes MD LAB - HEMATOLOGY JUVENTINO SAMAYOA Performing Organization Address [facility] Co de Phone Number [facility] [address] [place] [address] * (ABNORMAL) COMPREHENSIVE METABOLIC PANEL (03/18/2018 7:35 AM CDT) Glucose 88 65 - 99 mg/dL [facility] Comment: ? Fasting reference interval BUN 16 7 - 25 mg/dL [facility] Creatinine 0.74 0.50 - 1.05 mg/dL [facility] Comment: For patients >49 years of age, the reference limit for Creatinine is approximately 13% higher for people identified as -[place]. eGFR by MDRD 91 > OR = [...] 29 U/L [facility] Comment: Test Performed at: [facility] ??[phone] ASPEN HOLLINGSWORTH DO,MPH Blood BLOOD SPECIMEN / Unknown 03/18/2018 7:35 AM CDT 03/18/2018 7:35 AM CDT Perez Cervantes MD LAB - CHEMISTRY GERA DAVID Performing Organization Address [facility] Co de Phone Number [facility] [address] [place] [address] documented in this encounter Visit Diagnoses Diagnosis Encounter for therapeutic drug monitoring- Primary Encounter for long-term (current) use of medications Encounter for long-term (current) use of other medications Polyarthritis Unspecified polyarthropathy or polyarthritis, site unspecified Primary osteoarthritis involving multiple joints documented in this encounter Care Teams Cordage Sales Representative Relationship Specialty Start Date End Date Toney Munroe MD PCP - General Family Medicine 02/10/16 07/28/18 documented as of this encounter
--- OUTSIDE RECORDS SUMMARY | 2024-11-13 17:49 | XMS_ITS | Encounter Summary ---
Author Organization [facility] Address [address] [facility] [place] [address] Care Team Providers Care Box Chipper Name Role Phone Toney Munroe MD Primary Care Provider Encounter Details Date Type Department Care Team (Late Contact Info) Description 01/31/2018 Orders Only [facility] [address] [place] [address] Perez Cervantes MD [address] [place] [address] 2L [place] [address] Encounter for therapeutic drug monitoring [...] Visit [facility] Rhe[facility] [address] [place] [address], [place] [address] Perez Cervantes MD [address] [place] [address] 2L [place] [address] documented as of this encounter Visit Diagnoses Diagnosis Encounter for therapeutic drug monitoring- Primary Polyarthritis Unspecified polyarthropathy or polyarthritis, site unspecified documented in this encounter Care Teams Box Chipper Relationship Specialty Start Date End Date Toney Munroe MD PCP - General Family Medicine 02/10/16 07/28/18 documented as of this encounter
--- OUTSIDE RECORDS SUMMARY | 2024-11-13 17:49 | XMS_ITS | Encounter Summary ---
Author Organization [facility] Address [address] [facility] [place] [address] Care Team Providers Care Latexer Name Role Phone Toney Munroe MD Primary Care Provider [phone] Encounter Details Date Type Department Care Team (Latest Contact Info) Description 08/03/2016 Hospital Outpatient Visit Historic [facility] MAIN LAB [address] [place] [phone] Perez Cervantes MD [address] [place] [address] 2L [place] [address] Discharge Disposition: Home or Self Care Social [...] Visit [facility]ology [address] [place] [address], [place] [address] Perez Cervantes MD [address] [place] [address] 2L [place] [address] documented as of this encounter Procedures Procedure [...] monitoring documented in this encounter Care Teams Latexer Relationship Specialty Start Date End Date Toney Munroe MD PCP - General Family Medicine 02/10/16 07/28/18 documented as of this encounter
--- OUTSIDE RECORDS SUMMARY | 2024-11-13 17:49 | XMS_ITS | Encounter Summary ---
Author Organization [facility] Address [address] [facility] [place] [address] Care Team Providers Care Director Emergency Services Name Role Phone Toney Munroe MD Primary Care Provider Encounter Details Date Type Department Care Team (Latest Contact Info) Description 08/06/2015 Hospital Outpatient Visit Historic [facility] OUTPATIENT [facility] [address] [place] [address] Perez Cervantes MD [address] [place] [address] 2L [place] [address] Discharge Disposition: Home or Self Care Social [...] Visit [facility] [address] [place] [address], [place] [address] Perez Cervantes MD [address] [place] [address] 2L [place] [address] documented as of this encounter Procedures Procedure Name Priority Date/Time Associated Diagnosis Comments XR CHEST 2VW Routine 08/06/2015 2:58 PM CDT documented in this encounter Results * XR CHEST 2VW (08/06/2015 2:58 PM CDT) Anatomical Region Laterality Modality Chest Other Impressions 08/07/2015 2:42 PM CDT Impression: No acute pulmonary disease. Reported dictated by Cade Palma MD (residential worker). Dr. ANA LUISA Osorio M.D. have personally [...] disease. Reported dictated by Cade Palma MD (residential worker). Dr. ANA LUISA Osorio M.D. have personally reviewed and interpreted thisexamination/study. This report was electronically signed by ANA LUISA KAUFMAN M.D. on 08/07/20152:42 PM . Perez Cervantes MD DIAGNOSTIC IMAGING O RDERABLES documented in this encounter Visit Diagnoses Diagnosis Polyarthropathy or polyarthritis Unspecified polyarthropathy or polyarthritis, site unspecified Encounter for therapeutic drug monitoring documented in this encounter Care Teams Director Emergency Services Relationship Specialty Start Date End Date Toney Munroe MD PCP - General Family Medicine 02/10/16 07/28/18 documented as of this encounter
--- OUTSIDE RECORDS SUMMARY | 2024-11-13 17:49 | XMS_ITS | Encounter Summary ---
Author Organization [facility] Address [address] [facility] [place] [address] Care Team Providers Care Water Carter Name Role Phone Toney Munroe MD Primary Care Provider [phone] Reason for Visit * Reason Comments Refill Request Encounter Details Date Type Department Care Team (Late st Contact Info) Description 04/07/2018 Refill [facility] [address] [place] [address] Perez Cervantes MD [address] [place] [address] 2L [place] [address] Refill Request Social History Tobacco [...] Visit [facility] - Rhe[facility]ology [address] [place] [address], [facility] [place] [address] Perez Cervantes MD [address] [place] [address] 2L [place] [address] documented as of this encounter Visit Diagnoses Not on filedocumented in this encounter Care Teams Water Carter Relationship Specialty Start Date End Date Toney Munroe MD PCP - General Family Medicine 02/10/16 07/28/18 documented as of this encounter
--- OUTSIDE RECORDS SUMMARY | 2024-11-13 17:49 | XMS_ITS | Encounter Summary ---
Author Organization [facility] Address [address] [facility] [place] [place] [address] Care Team Providers Care In Shop Service Technician Name Role Phone Toney Munroe MD Primary Care Provider [phone] Encounter Details Date Type Department Care Team (Latest Contact Info) Description 08/03/2016 Hospital Outpatient Visit Historic [facility] MAIN LAB [address] [place] [phone] Perez Cervantes MD [address] [place] [address] 2L [place] [address] Discharge Disposition: Home or Self Care Social [...] Visit [facility] - Rhe[facility]ology [address] [place] [address], [place] [address] Perez Cervantes MD [address] [place] [address] 2L [place] [address] documented as of this encounter Visit Diagnoses Not on filedocumented in this encounter Care Teams In Shop Service Technician Relationship Specialty Start Date End Date Toney Munroe MD PCP - General Family Medicine 02/10/16 07/28/18 documented as of this encounter
--- OUTSIDE RECORDS SUMMARY | 2024-11-13 17:49 | XMS_ITS | Encounter Summary ---
Author Organization [facility] Address [address] [facility] [address] Care Team Providers Care Landscape Artist Name Role Phone Toney Munroe MD Primary Care Provider [phone] Encounter Details Date Type Department Care Team (Latest Contact Info) Description 10/31/2012 Hospital Outpatient Visit Historic [address] [address] Perez Cervantes MD [address] [place] [address] 2L [place] [address] Discharge Disposition: Home or Self [...] Visit [facility]ology [address] [place] [address], [place] [address] Perez Cervantes MD [address] [place] [address] 2L [place] [address] documented as of this encounter Visit Diagnoses Not on filedocumented in this encounter Care Teams Landscape Artist Relationship Specialty Start Date End Date Toney Munreo MD PCP - General Family Medicine 02/10/16 07/28/18 documented as of this encounter
--- OUTSIDE RECORDS SUMMARY | 2024-11-13 17:49 | XMS_ITS | Encounter Summary ---
Author Organization [facility] Address [address] [place] [place] [address] Care Team Providers Care Sheetfed Press Operator Name Role Phone Toney Munroe MD Primary Care Provider Encounter Details Date Type Department Care Team (Late Contact Info) Description 06/10/2018 Orders Only [facility] Rheumatology [facility] [place] [address] Katina Blankenship, RN Encounter for therapeutic drug [...] Description 03/27/2025 1:00 PM CDT Office Visit [facility] - Rheumatology [address] [place] [address], [facility] [place] [address] Perez Cervantes MD [address] [place] [address] [place] [address] documented as of this encounter Visit Diagnoses Diagnosis Encounter for therapeutic drug monitoring Encounter for long-term (current) use of medications Encounter for long-term (current) use of other medications Polyarthritis Unspecified polyarthropathy or polyarthritis, site unspecified Primary osteoarthritis involving multiple joints documented in this encounter Care Teams Sheetfed Press Operator Relationship Specialty Start Date End Date Toney Munroe MD PCP - General Family Medicine 02/10/16 07/28/18 documented as of this encounter
--- OUTSIDE RECORDS SUMMARY | 2024-11-13 17:49 | XMS_ITS | Encounter Summary ---
Author Organization [facility] Address [address] [facility] [place] [address] Care Team Providers Care Principal Associate Name Role Phone Toney Munroe MD Primary Care Provider [phone] Encounter Details Date Type Department Care Team (Late Contact Info) Description 05/13/2018 Orders Only [facility] Rheumatology [facility] [place] [address] Katina Blankenship, RN Encounter for therapeutic drug [...] Description 03/27/2025 1:00 PM CDT Office Visit [facility] - Rheumatology [address] [place] [address], [facility] [place] [address] Perez Cervantes MD [address] [place] [address] [place] [address] documented as of this encounter Procedures Procedure [...] Comment: REPORT COMMENT: FASTING:YES Test Performed at: [facility] [address] ??[phone] ASPEN HOLLINGSWORTH DO,MPH Blood BLOOD SPECIMEN / Unknown 06/01/2018 8:49 AM CDT 06/01/2018 8:52 AM CDT Perez Cervantes MD LAB - HEMATOLOGY ORD ERABLES [facility] [address] [place] [address] documented in this encounter Visit Diagnoses Diagnosis Encounter for therapeutic drug monitoring Encounter for long-term (current) use of medications Encounter for long-term (current) use of other medications Polyarthritis Unspecified polyarthropathy or polyarthritis, site unspecified Primary osteoarthritis involving multiple joints documented in this encounter Care Teams Principal Associate Relationship Specialty Start Date End Date Toney Munroe MD PCP - General Family Medicine 02/10/16 07/28/18 documented as of this encounter
--- OUTSIDE RECORDS SUMMARY | 2024-11-13 17:49 | XMS_ITS | Encounter Summary ---
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) Hip pain, bilateral Procedures MRI PELVIS NON CONTRAST Flip Garcia MD [address] [place] [address] Referral ID Status Reason Start Date Expiration Date Visits Re quested Visits Authorized [id number] Closed 03/06/2016 09/02/2016 1 1 Reason for Visit * Radiology Services (Routine) - Closed Specialty Diagnoses / Procedures Referred By Henrryac t Referred To Contact MRI Diagnoses Bilateral hip pain Procedures RI MRI, PELVIS, W/O CONTRAST MRI Pelvis WO Flip Garcia MD [address] [place] [address] Referral ID Status Reason Start Date Expiration Date Visits Re quested Visits Authorized [id number] Closed 02/17/2016 03/18/2016 1 1 Encounter Details Date Type Department Care Team (Latest Contact Info) Description 03/06/2016 1:00 PM CDT - 03/06/2016 11:59 PM CDT Hospital Encounter [facility] Imaging Services - MRI [address] [place] [address] Flip Garcia MD [address] [facility] [address] [place] [address] Discharge Disposition: Home or Self Care Social [...] Visit [facility] - Rhe[facility]ology [address] [place] [address], [facility] [place] [address] Perez Cervantes MD [address] [place] [address] [place] [address] documented as of this encounter Procedures Procedure [...] thigh documented in this encounter Care Teams Technical Support Consultant Relationship Specialty Start Date End Date Toney Munroe MD PCP - General Family Medicine 02/10/16 07/28/18 documented as of this encounter
--- OUTSIDE RECORDS SUMMARY | 2024-11-13 17:49 | XMS_ITS | Encounter Summary ---
Author Organization [facility] Address [address] [facility] [place] [address] Care Team Providers Care Adjunct Faculty Mathematics Department Name Role Phone Toney Munroe MD Primary Care Provider [phone] Clement Young MD Primary Care Provider [phone] Jaspreet Pearl MD Primary Care Provider + Reason for Visit * Reason Onset Date Comments Medication Issue 05/05/2018 Encounter Details Date Type Department Care Team (Late st Contact Info) Description 05/05/2018 Telephone [facility] [address] [place] [address] Perez Cervantes MD [facility] [place] [address] Medication Issue Social History Tobacco [...] week but accidentally took MTX (in pill computer network support specialist) this week. Leaving for [place] on Wednesday [...] Office Visit [facility] - Rheumatology [address] [place] [address], [place] [address] Perez Cervantes MD [address] [place] [address] DIV [place] [phone] documented as of this encounter Visit Diagnoses Not on filedocumented in this encounter Care Teams Adjunct Faculty Mathematics Department Relationship Specialty Start Date End Date Toney Munroe MD PCP - General Family Medicine 02/10/16 07/28/18 Clement Young MD PCP - General 07/29/18 08/07/18 Jaspreet Pearl MD PCP - General 08/08/18 03/26/24 documented as of this encounter
--- OUTSIDE RECORDS SUMMARY | 2024-11-13 17:49 | XMS_ITS | Encounter Summary ---
Author Organization [facility] Address [address] [facility] [place] [address] Care Team Providers Care Dairy Feed Mixing Operator Name Role Phone Toney Munroe MD Primary Care Provider Encounter Details Date Type Department Care Team (Late Contact Info) Description 07/08/2018 Orders Only [facility] Rheumatology [facility] [place] [address] Katina Blankenship, RN Encounter for therapeutic drug [...] [facility] [address] [place] [address], [facility] [place] [phone] Perez Cervantes MD [address] [place] [address] [place] [phone] documented as of this encounter Visit Diagnoses Diagnosis Encounter for therapeutic drug monitoring Encounter for long-term (current) use of medications Encounter for long-term (current) use of other medications Polyarthritis Unspecified polyarthropathy or polyarthritis, site unspecified Primary osteoarthritis involving multiple joints documented in this encounter Care Teams Dairy Feed Mixing Operator Relationship Specialty Start Date End Date Toney Munroe MD PCP - General Family Medicine 02/10/16 07/28/18 documented as of this encounter
--- OUTSIDE RECORDS SUMMARY | 2024-11-13 17:49 | XMS_ITS | Encounter Summary ---
Author Organization [facility] Address [address] [facility] [place] [address] Care Team Providers Care Match Maker Name Role Phone Toney Munroe MD Primary Care Provider Encounter Details Date Type Department Care Team (Latest Contact Info) Description 08/13/2014 Hospital Outpatient Visit Historic [facility] [address] [place] [address] Perze Cervantes MD [address] [place] [address] 2L [place] [address] Discharge Disposition: Home or Self Care Social [...] Visit [facility] - [facility]ology [address] [facility], [place] [phone] Perez Cervantes MD [address] [place] [address] 2L [place] [address] documented as of this encounter Visit Diagnoses Not on filedocumented in this encounter Care Teams Match Maker Relationship Specialty Start Date End Date Toney Munroe MD PCP - General Family Medicine 02/10/16 07/28/18 documented as of this encounter
--- OUTSIDE RECORDS SUMMARY | 2024-11-13 17:49 | XMS_ITS | Encounter Summary ---
Author Organization [facility] Address [address] [facility] [place] [address] Care Team Providers Care Cone Examiner Name Role Phone Toney Munroe MD Primary Care Provider [phone] Encounter Details Date Type Department Care Team (Latest Contact Info) Description 08/02/2017 Hospital Outpatient Visit Historic [facility] [address] [place] [phone] Perez Cervantes MD [address] [place] [address] 2L [place] [address] Discharge Disposition: Home or Self Care Social [...] Visit [facility]ology [address] [facility], [place] [address] Perez Cervantes MD [address] [place] [address] 2L [place] [address] documented as of this encounter Visit Diagnoses Not on filedocumented in this encounter Care Teams Cone Examiner Relationship Specialty Start Date End Date Toney Munroe MD PCP - General Family Medicine 02/10/16 07/28/18 documented as of this encounter
--- OUTSIDE RECORDS SUMMARY | 2024-11-13 17:49 | XMS_ITS | Encounter Summary ---
Author Organization [facility] Address [address] [facility] [place] [address] Care Team Providers Care Lime Hide Inspector Name Role Phone Toney Munroe MD Primary Care Provider [phone] Encounter Details Date Type Department Care Team (Latest Contact Info) Description 01/31/2018 Hospital Outpatient Visit Historic [facility] [address] [address] [place] [address] Perez Cervantes MD [address] [place] [address] 2L [place] [phone] Discharge Disposition: Home or Self Care Social [...] Physician Group - Rheumatology [address] [facility], [place] [address] Perez Cervantes MD [address] [place] [address] 2L [place] [address] documented as of this encounter Visit Diagnoses Not on filedocumented in this encounter Care Teams Lime Hide Inspector Relationship Specialty Start Date End Date Toney Munroe MD PCP - General Family Medicine 02/10/16 07/28/18 documented as of this encounter
--- OUTSIDE RECORDS SUMMARY | 2024-11-13 17:49 | XMS_ITS | Encounter Summary ---
Author Organization [facility] Address [address] [facility] [place] [address] Care Team Providers Care Case Finisher Name Role Phone Toney Munroe MD Primary Care Provider Encounter Details Date Type Department Care Team (Latest Contact Info) Description 01/31/2018 Hospital Outpatient Visit Historic [facility] [address] [place] [phone] Perez Cervantes MD [address] [place] [address] 2L [place] [phone] Discharge Disposition: Home or Self Care Social [...] Office Visit [facility] - [facility]ology [facility] [facility], [place] [phone] Perez Cervantes MD [address] [place] [address] 2L [place] [address] documented as of this encounter Procedures Procedure [...] significant arthritis. Dictated by Rashard Brewster MD (radiology transcriptionist). Dr. ANA LUISA Osorio M.D. have personally [...] significant arthritis. Dictated by Rashard Brewster MD (radiology transcriptionist). Dr. ANA LUISA Osorio M.D. have personally [...] significant arthritis. Dictated by Rashard Brewster MD (radiology transcriptionist). Dr. ANA LUISA Osorio M.D. have personally [...] significant arthritis. Dictated by Rashard Brewster MD (radiology transcriptionist). Dr. ANA LUISA Osorio M.D. have personally reviewed and interpreted thisexamination/study. This report was electronically signed by ANA LUISA KAUFMAN M.D. on 02/01/20188:28 AM . Perez Cervantes MD [facility]ST[facility]LES documented in this encounter Visit Diagnoses Diagnosis Encounter for therapeutic drug level monitoring Encounter for therapeutic drug monitoring Polyarthritis Unspecified polyarthropathy or polyarthritis, site unspecified documented in this encounter Care Teams Case Finisher Relationship Specialty Start Date End Date Toney Munroe MD PCP - General Family Medicine 02/10/16 07/28/18 documented as of this encounter
--- OUTSIDE RECORDS SUMMARY | 2024-11-13 17:49 | XMS_ITS | Encounter Summary ---
Author Organization [facility] Address [address] [facility] [place] [address] Care Team Providers Care Youth Agent Name Role Phone Toney Munroe MD Primary Care Provider Encounter Details Date Type Department Care Team (Latest Contact Info) Description 10/31/2012 Hospital Outpatient Visit Historic [facility] [place] [address] Discharge Disposition: Home or Self Care Social [...] Description 03/27/2025 1:00 PM CDT Office Visit [facility] - Rheumatology [address] [place] [address], [place] [address] Perez Cervantes MD [address] [place] [address] [place] [phone] documented as of this encounter Procedures Procedure Name Priority Date/Time Associated Diagnosis Comments XR FOOT RIGHT 2VW Routine 10/31/2012 4:3 5 PM RADIOLOGY ASST XR FOOT LEFT 2VW Routine 10/31/2012 4:35 PM RADIOLOGY ASST XR HAND RIGHT 2VW Routine 10/31/2012 4:3 5 PM RADIOLOGY ASST XR HAND LEFT 2VW Routine 10/31/2012 4:35 PM RADIOLOGY ASST documented in this encounter Results * XR FOOT RIGHT 2VW (10/31/2012 4:35 PM RADIOLOGY ASST) Anatomical Region Laterality Modality Ankle / Foot Other Impressions 11/01/2012 9:11 AM RADIOLOGY ASST Impression: No evidence of erosive arthritis. Report dictated by Dinh Cortes M.D. (resident). Dr. NITZA Osorio M.D. have personally reviewed and interpreted this examination/study. This report was electronically signed by NITZA VIDALES M.D. ??on 11/01/2012 9:11 AM . Narrative 11/01/2012 9:11 AM RADIOLOGY ASST Exam: ??Right foot, 2 views. History: ??Polyarthritis [...] XR FOOT LEFT 2VW (10/31/2012 4:35 PM RADIOLOGY ASST) Anatomical Region Laterality Modality Ankle / Foot Other Impressions 11/01/2012 9:10 AM RADIOLOGY ASST Impression: No evidence of erosive arthritis. Report dictated by Dinh Cortes M.D. (resident). Dr. NITZA Osorio M.D. have personally reviewed and interpreted this examination/study. This report was electronically signed by NITZA VIDALES M.D. ??on 11/01/2012 9:10 AM . Narrative 11/01/2012 9:10 AM RADIOLOGY ASST Exam: ??Left foot, 2 views History: ??Polyarthritis [...] XR HAND RIGHT 2VW (10/31/2012 4:35 PM RADIOLOGY ASST) Anatomical Region Laterality Modality Wrist / Hand Other Impressions 11/01/2012 9:09 AM RADIOLOGY ASST Impression: Mild degenerative changes. No evidence of erosive arthritis. Report dictated by Dinh Cortes M.D. (resident). Dr. NITZA Osorio M.D. have personally reviewed and interpreted this examination/study. This report was electronically signed by NITZA VIDALES M.D. ??on 11/01/2012 9:09 AM . Narrative 11/01/2012 9:09 AM RADIOLOGY ASST Exam: ??Right hand, 2 views. History: ??Polyarthritis [...] XR HAND LEFT 2VW (10/31/2012 4:35 PM RADIOLOGY ASST) Anatomical Region Laterality Modality Wrist / Hand Other Impressions 11/01/2012 9:06 AM RADIOLOGY ASST Impression: Mild degenerative changes. No evidence of inflammatory arthritis. Report dictated by Dinh Cortes M.D. (resident). Dr. NITZA Osorio M.D. have personally reviewed and interpreted this examination/study. This report was electronically signed by NITZA VIDALES M.D. ??on 11/01/2012 9:06 AM . Narrative 11/01/2012 9:06 AM RADIOLOGY ASST Exam: ??Left hand, 2 views. History: ??Polyarthritis [...] unspecified documented in this encounter Care Teams Youth Agent Relationship Specialty Start Date End Date Toney Munroe MD PCP - General Family Medicine 02/10/16 07/28/18 documented as of this encounter
--- OUTSIDE RECORDS SUMMARY | 2024-11-13 17:49 | XMS_ITS | Encounter Summary ---
Author Organization [facility] Address [address] [facility] [place] [address] Care Team Providers Care Director Of Product Management Name Role Phone Toney Munroe MD Primary Care Provider Encounter Details Date Type Department Care Team (Latest Contact Info) Description 08/06/2015 Hospital Outpatient Visit Historic [facility] [address] [place] [phone] Perez Cervantes MD [address] [place] [address] 2L [place] [phone] Discharge Disposition: Home or Self Care Social [...] Visit [facility] - [facility] [address] [facility], [place] [phone] Perez Cervantes MD [address] [place] [address] 2L [place] [phone] documented as of this encounter Visit Diagnoses Not on filedocumented in this encounter Care Teams Director Of Product Management Relationship Specialty Start Date End Date Toney Munroe MD PCP - General Family Medicine 02/10/16 07/28/18 documented as of this encounter
--- OUTSIDE RECORDS SUMMARY | 2024-11-13 17:49 | XMS_ITS | Encounter Summary ---
Author Organization [facility] Address [address] [facility] [place] [address] Care Team Providers Care Family Lawyer Name Role Phone Toney Munroe MD Primary Care Provider [phone] Encounter Details Date Type Department Care Team (Late Contact Info) Description 05/06/2018 Orders Only [facility] [address] [place] [address] Perez Cervantes MD [address] [place] [address] 2L [place] [address] Encounter for therapeutic drug [...] Visit [facility] - Rheumatology [address] [place] [address], [facility] [place] [address] Perez Cervantes MD [address] [place] [address] 2L [place] [address] documented as of this encounter Visit Diagnoses Diagnosis Encounter for therapeutic drug monitoring Polyarthritis Unspecified polyarthropathy or polyarthritis, site unspecified documented in this encounter Care Teams Family Lawyer Relationship Specialty Start Date End Date Toney Munroe MD PCP - General Family Medicine 02/10/16 07/28/18 documented as of this encounter
--- OUTSIDE RECORDS SUMMARY | 2024-11-13 17:49 | XMS_ITS | Encounter Summary ---
Author Organization [facility] Address [address] [facility] [place] [address] Care Team Providers Care Cyber Legal Advisor Name Role Phone Toney Munroe MD Primary Care Provider Reason for Visit * Reason Comments Refill Request Encounter Details Date Type Department Care Team (Late st Contact Info) Description 06/04/2018 Refill [facility] [address] [place] [address] Perez Cervantes MD [address] [place] [address] 2L [place] [address] Refill Request Social History Tobacco [...] Visit [facility] - Rheumatology [address] [place] [address], [facility] [place] [address] Perez Cervantes MD [address] [place] [address] 2L [place] [address] documented as of this encounter Visit Diagnoses Not on filedocumented in this encounter Care Teams Cyber Legal Advisor Relationship Specialty Start Date End Date Toney Munroe MD PCP - General Family Medicine 02/10/16 07/28/18 documented as of this encounter
--- OUTSIDE RECORDS SUMMARY | 2024-11-13 17:49 | XMS_ITS | Encounter Summary ---
Author Organization [facility] Address [address] [facility] [place] [address] Care Team Providers Care Bacon Skin Lifter Name Role Phone Toney Munroe MD Primary Care Provider Encounter Details Date Type Department Care Team (Latest Contact Info) Description 08/02/2017 Hospital Outpatient Visit Historic [facility] [address] [place] [phone] Perez Cervantes MD [address] [place] [address] 2L [place] [address] Discharge Disposition: Home or Self Care Social [...] Visit [facility] - Rheumatology [address] [place] [address], [place] [address] Perez Cervantes MD [address] [place] [address] 2L [place] [phone] documented as of this encounter Procedures Procedure Name Priority Date/Time Associated Diagnosis Comments XR CHEST 2VW Routine 08/02/2017 1:51 PM CDT documented in this encounter Results * XR CHEST 2VW (08/02/2017 1:51 PM CDT) Anatomical Region Laterality Modality Chest Other Impressions 08/02/2017 4:26 PM CDT IMPRESSION: No active pulmonary process. Dictated by Brodie Henry MD (vice president for philanthropy). Dr. ANA LUISA Osorio M.D. have personally [...] pulmonary process. Dictated by Brodie Henry MD (vice president for philanthropy). Dr. ANA LUISA Osorio M.D. have personally reviewed and interpreted thisexamination/study. This report was electronically signed by ANA LUISA KAUFMAN M.D. on 08/02/20174:26 PM . Perez Cervantes MD DIAGNOSTIC IMAGING O RDERABLES documented in this encounter Visit Diagnoses Diagnosis Polyarthritis Unspecified polyarthropathy or polyarthritis, site unspecified Encounter for therapeutic drug level monitoring Encounter for therapeutic drug monitoring documented in this encounter Care Teams Bacon Skin Lifter Relationship Specialty Start Date End Date Toney Munroe MD PCP - General Family Medicine 02/10/16 07/28/18 documented as of this encounter
--- OUTSIDE RECORDS SUMMARY | 2024-11-13 17:51 | XMS_ITS | Encounter Summary ---
Author Organization [facility] Address [address] [place] [address]. [place] [address] [place] [address] Care Team Providers Care Clinical Project Leader Name Role Phone Dayanara Plaza MD Primary Care Provider [phone] Perez Cervantes MD Unavailable Adriana Ma MD Unavailable [phone] Encounter Details Date Type Department Care Team [...] from your doctor or pharmacy? Never 05/23/2024 [facility] Utilities Answer Date Recorded In the [...] Recorded Patient Health Questionnaire-2 Score 0 04/03/2024 [facility] of Occupat ional Health - Occupational Stress [...] any time in the past 12 m [facility], were you homeless or living in a detention (including now)? No 05/23/2024 Education Answer Date Recorded What is the highest level of school you have completed or the highest degree you have received? Master's degree (e.g., MA, MS, Howard, MEd, ENERGY DIRECTOR, KEKE) 12/21/2018 Comments No Sex and [...] Contact Info) Description 11/14/2024 8:00 AM GAS AND OIL CHECKER Office Visit [facility] [address] [facility], [address] [place] [address] Montserrat Oliver, GLASS MAKER [address] [facility] [address] [place] [address] 12/06/2024 9:30 AM GAS AND OIL CHECKER Appointment [facility] Open [facility] [address] [place] [address] [place] [address] [place], [place] [phone] 03/02/2025 3:20 PM CDT Office Visit [facility] [place] [address] [place] [address] [place] [address] [facility] [address] [place] [id number] documented as of this encounter Goals Goal Patient Goal Type Associated Problems Recent Progress Patient-Stated? Author Family - family caregiver with be involved in care transitions and discharge planning Lifestyle No Nessa Pan, AUTOMOBILE OR TRUCK RENTAL DISPATCHER documented as of this encounter Visit Diagnoses Not on filedocumented in this encounter Additional Health Concerns Assessment Noted Time PHQ-9 Depression Total Score: 0 04/03/20 24 10:56 AM CDT documented as of this encounter Care Teams Clinical Project Leader Relationship Specialty Start [place] [address] [facility] [facility] [address] [place], [place] [phone] PCP - General FAMILY PRACTICE 03/01/23 Perez Cervantes MD [address] [place] [address] RHEUMATOLOGY 09/02/23 Adriana Ma MD [address] [place] [address] Referring Physician ALLERGY 09/02/23 documented as of this encounter
--- OUTSIDE RECORDS SUMMARY | 2024-11-13 17:51 | XMS_ITS | Encounter Summary ---
Author Organization [facility] Address [address] [place] [address]. [place] [address] [place] [address] Care Team Providers Care Research Executive Name Role Phone Dayanara Plaza MD Primary Care Provider [phone] Perez Cervantes MD Unavailable Adriana Ma MD Unavailable [phone] Reason for Referral * Imaging (Routine) - Closed Specialty Diagnoses / Procedures Referred By Contac t Referred To Contact RADIOLOGY Diagnoses Abdominal pain Procedures CT ABD+PEL W CON Flip Sauer MD [address] [place] [address] Phone: tel: fax: Referral ID Status Reason Start Date Expiration Date Visits Re quested Visits Authorized [id number] Closed 08/02/2024 01/29/2025 1 1 Reason for Visit * Imaging (Routine) - Closed Specialty Diagnoses / Procedures Referred By Contac t Referred To Contact RADIOLOGY Diagnoses Abdominal pain Procedures CT ABD+PEL W CON Flip Sauer MD [address] [place] [address] Phone: tel: fax: Referral ID Status Reason Start Date Expiration Date Visits Re quested Visits Authorized [id number] Closed 08/02/2024 01/29/2025 1 1 Encounter Details Date Type Department Care Team (Latest Contact Info) Description 08/21/2024 3:09 PM CDT - 08/21/2024 11:59 PM CDT Hospital Encounter [facility] [address] [address] Flip Sauer MD [facility] [address] [phone] Discharge Disposition: Home or Self Care (Routine [...] from your doctor or pharmacy? Never 05/23/2024 [facility] Utilities Answer Date Recorded In the past 12 months has e [employer], gas, oil, or water [employer] threatened to shut off services in your [...] Recorded Patient Health Questionnaire-2 Score 0 04/03/2024 [facility] of Occupat ional Health - Occupational Stress [...] any time in the past 12 m [facility], were you homeless or living in a chcf (including now)? No 05/23/2024 Education Answer Date Recorded What is the highest level of school you have completed or the highest degree you have received? Master's degree (e.g., MA, MS, Howard, MEd, MENTAL HEALTH SPECIALIST, KEKE) 12/21/2018 Comments No Sex and [...] st Contact Info) Description 11/14/2024 8:00 AM BRICK BURNER Office Visit [facility] Multispecialty Care - [facility] 3 [facility], [address] [place] [address] Montserrat Oliver NP 3 [facility] [address] [place] [address] 12/06/2024 9:30 AM BRICK BURNER Appointment [facility] MRI [address] [place] [address] [place] [address] [place], [place] [phone] 03/02/2025 3:20 PM CDT Office Visit [facility] Medical Group Family & Internal Medicine [facility] [address] [place] [address] [place] [address] [facility] [place], [place] [phone] documented as of this encounter Goals Goal Patient Goal Type Associated Problems Recent Progress Patient-Stated? Author Family - family caregiver with be involved in care transitions and discharge planning Lifestyle No Nessa Pan, SURFACE TO AIR WEAPONS OFFICER documented as of this encounter Procedures Procedure [...] 2:39 AM Narrative 08/22/2024 3:42 AM CDT [facility] 1 [place], [place] [address] INDICATION: Postoperative abdominal pain COMPARISON: CT abdomen/pelvis, [...] Procedure Note Rodrigo Crum MD - 08/22/[address] [address] INDICATION: Postoperative abdominal pain COMPARISON: CT abdomen/pelvis, [...] documented as of this encounter Care Teams Research Executive Relationship Specialty Start [place] [address] [facility]. [address] [place] [address] PCP - General FAMILY PRACTICE 03/01/23 Perez Cervantes MD [address] [place] [id number] RHEUMATOLOGY 09/02/23 Adriana Ma MD [address] [place] [address] Referring Physician ALLERGY 09/02/23 documented as of this encounter
--- OUTSIDE RECORDS SUMMARY | 2024-11-13 17:51 | XMS_ITS | Encounter Summary ---
Author Organization [facility] Address [address] [place] [address]. [place] [address] [place] [address] Care Team Providers Care Printed Circuit Board Panels Plater Name Role Phone Dayanara Plaza MD Primary Care Provider [phone] Perez Cervantes MD Unavailable Adriana Ma MD Unavailable [phone] Encounter Details Date Type Department Care Team (Latest Contact Info) Description 06/02/2024 5:15 PM CDT - 06/02/2024 11:59 PM CDT Hospital Encounter [facility] [address] [place] [address] [place] [address] [address] [place] [address] Discharge Disposition: Home or Self Care (Routine [...] your doctor or pharmacy? Never 05/23/2024 [facility] Utilities Answer Date Recorded In the past 12 months has th e electric, gas, oil, or water [employer] threatened to shut off services in your [...] Patient Health Questionnaire-2 Score 0 04/03/2024 [facility] of Occupat ional Health - Occupational Stress [...] any time in the past 12 m [facility], were you homeless or living in a penitentiary (including now)? No 05/23/2024 Education Answer Date Recorded What is the highest level of school you have completed or the highest degree you have received? Master's degree (e.g., MA, MS, Howard, MEd, WHEEL ALIGNER, KEKE) 12/21/2018 Comments No Sex and Gender [...] 05/22/2024 oxyCODONE-acetaminop hen (PERCOCET) 5-325 MG tabletIndications:Ac [place] Pain < 3 Day Supply Take 1 [...] st Contact Info) Description 11/14/2024 8:00 AM CHANGE CONSULTANT Office Visit [facility] Multispecialty Care - [facility] 3 [facility], [address] [place] [address] Montserrat Oliver NP 3 [facility] [address] [place] [address] 12/06/2024 9:30 AM CHANGE CONSULTANT Appointment [facility] MRI [address] [place] [address] [place] [address] [facility]. [address] [place] [address] 03/02/2025 3:20 PM CDT Office Visit [facility] Family & Internal Medicine - [address] [phone] [place] [address] [facility]. [address] [place] [address] documented as of this encounter Goals Goal Patient Goal Type Associated Problems Recent Progress Patient-Stated? Author Family - family caregiver with be involved in care transitions and discharge planning Lifestyle No Nessa Pan, DRYING TUNNEL OPERATOR documented as of this encounter Procedures Procedure [...] CBC W/DIFF AUTOMATED (06/02/2024 3:43 PM CDT) [facility] WBC 5.34 4.4 - 11.0 x10'3/uL 06/02/2024 5:24 PM CDT [facility] RBC 3.75(L) 4.50 - 5.10 x10'6/uL 06/02/2024 5:24 PM CDT [facility] HGB 12.2(L) 12.3 - 15.3 G/DL 06/02/2024 5:24 PM CDT [facility] HCT 37.2 35.9 - 44.6 % 06/02/2024 5:24 PM CDT [facility] MCV 99.2(H) 80.0 - 96.0 FL 06/02/2024 5:24 PM CDT [facility] MCH 32.5(H) 25.3 - 30.9 PG 06/02/2024 5:24 PM CDT [facility] MCHC 32.8 31.0 - 34.1 G/DL 06/02/2024 5:24 PM CDT [facility] RDW 14.0 12.4 - 15.1 % 06/02/2024 5:24 PM CDT [facility] PLT 326 151 - 353 x10'3/uL 06/02/2024 5:24 PM CDT [facility] MPV 10.8 9.6 - 12.0 FL 06/02/2024 5:24 PM CDT [facility] RBC MORPHOLOGY NORMAL 06/02/2024 5:24 PM CDT [facility] PLT MORPH. NORMAL 06/02/2024 5:24 PM CDT [facility] WBC MORPHOLOGY NORMAL 06/02/2024 5:24 PM CDT [facility] LYMPHOCYTES % 30.7 15.8 - 45.0 % 06/02/2024 5:24 PM CDT [facility] NEUTROPHILS % 53.3 42.1 - 71.9 % 06/02/2024 5:24 PM CDT [facility] MONOCYTES % 12.4 5.7 - 12.5 % 06/02/2024 5:24 PM CDT [facility] EOSINOPHILS 2.8 0.0 - 5.6 % 06/02/2024 5:24 PM CDT [facility] BASOPHILS 0.6 0.0 - 1.3 % 06/02/2024 5:24 PM CDT [facility] ABS. NEUTROPHILS 2.85 1.40 - 6.00 x10'3/uL 06/02/2024 5:24 PM CDT [facility] IMMATURE GRANS % 0.2 0.0 - 0.5 % 06/02/2024 5:24 PM CDT [facility] ABS. LYMPHOCYTES 1.64 0.80 - 4.70 x10'3/uL 06/02/2024 5:24 PM CDT [facility] 06/02/2024 3:43 PM CDT Dayanara Plaza MD LABORATORY Final Result [facility] [address] [place] [address], * (ABNORMAL) BASIC METABOLIC PANEL (06/02/2024 3:43 PM CDT) Pathologist [facility] GLUCOSE 103(H) 70 - 99 MG/DL 06/02/2024 5:47 PM CDT [facility] BUN 7 7 - 18 MG/DL 06/02/2024 5:47 PM CDT [facility] CREATININE S/P/B 0.83 0.55 - 1.02 MG/DL 06/02/2024 5:47 PM CDT [facility] SODIUM S/P/B 145 136 - 145 MMOL/L 06/02/2024 5:47 PM CDT [facility] POTASSIUM S/P/B 4.8 3.5 - 5.1 MMOL/L 06/02/2024 5:47 PM CDT [facility] CHLORIDE S/P/B 107 100 - 108 MMOL/L 06/02/2024 5:47 PM CDT [facility] CO2 30.3 21 - 32 MMOL/L 06/02/2024 5:47 PM CDT [facility] CALCIUM S/P/B 9.9 8.5 - 10.1 MG/DL 06/02/2024 5:47 PM CDT [facility] ANION GAP 7.7 5 - 15 MMOL/L 06/02/2024 5:47 PM CDT [facility] BUN CREATININE RATIO 8.4 6 - 26 06/02/2024 5:47 PM CDT [facility] GFR ESTIMATE 80(L) >90 ML/MIN/1.7 3 M2 06/02/2024 5:47 PM CDT [facility] Comment: NOTE: eGFR is not calculated for patients <18 years of age. This is an estimated GFR calculation using the new CKD EPI creatinine equation without race and so does not require a correction factor for race. This estimated GFR should not be used for calculating drug doses. 06/02/2024 3:43 PM CDT Dayanara Plaza MD LABORATORY Final Result Performing Organization Address [facility] Co de Phone Number [facility] [address] [place] [address], [place] [phone] * HEMOGLOBIN, GLYCOSYLATED (06/02/2024 3:43 PM CDT) HGB A1C 5.3 <5.7 % 06/02/2024 6:50 PM CDT [facility] Comment: INCREASED RISK OF DIABETES <5.7% ?NON-DIABETES 5.7-6.4% INCREASED RISK FOR FUTURE DIABETES > OR = 6.5 CONSISTENT WITH DIABETES STANDARDS OF MEDICAL CARE IN DIABETES-2010 DIABETES CARE, 33(SUPP 1): S1-S61,2010 ESTIMATED AVG GLUCOSE 105 mg/dL 06/02/2024 6:50 PM CDT [facility] 06/02/2024 3:43 PM CDT us Dayanara Plaza MD LABORATORY Final Result Performing Organization Address [facility] Co de Phone Number [facility] [address] [place] [address], [place] [phone] * TSH W/REFLEX (06/02/2024 3:43 PM CDT) TSH 0.707 0.358 - 3.74 uIU/ML 06/02/2024 5:47 PM CDT [facility] Comment: HIGH DOSES OF BIOTIN MAY INTERFERE WITH THIS TEST RESULT. CORRELATION TO CLINICAL HISTORY AND PRESENTATION RECOMMENDED. FREE T4 NOT INDICATED 06/02/2024 3:43 PM CDT Dayanara Plaza MD LABORATORY Final Result Performing Organization Address [facility] de Phone Number [facility] [address] [place] [address], [place] [phone] * VITAMIN D, 25 [place] (06/02/2024 3:43 PM CDT) Pathologist [facility] VITAMIN D 25 HYDROXY S/P/B 51 30 - 100 NG/ML 06/02/2024 6:00 PM CDT [facility] Comment: ? INTERPRETATION ? DEFICIENT ??<20 ? INSUFFICIENT 20-29 ?SUFFICIENT 30-100 06/02/2024 3:43 PM CDT Dayanara Plaza MD LABORATORY Final Result Performing Organization Address [facility] de Phone Number [facility] [address] [place] [address], [place] [phone] documented in this encounter Visit Diagnoses Diagnosis [...] encounter Care Teams Printed Circuit Board Panels Plater Relationship Specialty [place] [address] [address] [place] [address] PCP - General FAMILY PRACTICE 03/01/23 Perez Cervantes MD [address] [place] [address] RHEUMATOLOGY 09/02/23 Adriana Ma MD [address] [place] [address] Referring Physician ALLERGY 09/02/23 documented as of this encounter
--- OUTSIDE RECORDS SUMMARY | 2024-11-13 17:51 | XMS_ITS | Encounter Summary ---
Author Organization [facility] Address [address] [place] [address]. [place] [address] [place] [address] Care Team Providers Care Pulmonary Care Nurse Name Role Phone Dayanara Plaza MD Primary Care Provider [phone] Perez Cervantes MD Unavailable Adriana Ma MD Unavailable [phone] Encounter Details Date Type Department Care Team (Latest Contact Info) Description 06/02/2024 3:54 PM CDT - 06/02/2024 5:14 PM CDT Hospital Encounter [facility] Diagnostic Imaging [address] [place] [address] [place] [address] [address] [place] [address] Discharge Disposition: Home or Self Care (Routine [...] from your doctor or pharmacy? Never 05/23/2024 [facility] Utilities Answer Date Recorded In the past 12 months has th e electric, gas, oil, or water [employer] threatened to shut off services in your [...] time in the past 12 m [facility], were you homeless or living in a halfway (including now)? No 05/23/2024 Education Answer Date Recorded What is the highest level of school you have completed or the highest degree you have received? Master's degree (e.g., MA, MS, Howard, MEd, SECURITY SYSTEM ADMINISTRATOR, KEKE) 12/21/2018 Comments No Sex and Gender [...] 05/22/2024 oxyCODONE-acetaminop hen (PERCOCET) 5-325 MG tabletIndications:Ac [place] Pain < 3 Day Supply Take 1 [...] st Contact Info) Description 11/14/2024 8:00 AM COAL TRAM DRIVER Office Visit [facility] Multispecialty Care - [facility] 3 [facility], [address] [place] [address] Montserrat Oliver NP 3 [facility] [address] [place] [address] 12/06/2024 9:30 AM COAL TRAM DRIVER Appointment [facility] MRI [address] [place] [address] [place] [address] [facility]. [address] [place] [address] 03/02/2025 3:20 PM CDT Office Visit [facility] Family & Internal Medicine - [address] [address] [place] [address] [facility]. [address] [place] [address] documented as of this encounter Goals Goal Patient Goal Type Associated Problems Recent Progress Patient-Stated? Author Family - family caregiver with be involved in care transitions and discharge planning Lifestyle No Nessa Pan, RECESSING MACHINE OPERATOR documented as of this encounter Procedures [...] 06/05/2024 3:58 AM CDT [facility] Abdomen one view DATE OF [...] Jones MD - 06/05/2024 [facility]: Abdomen one view DATE OF [...] documented as of this encounter Care Teams Pulmonary Care Nurse Relationship Specialty Start [place] [address] [facility]. [address] [place] [address] PCP - General FAMILY PRACTICE 03/01/23 Perez Cervantes MD [address] [place] [address] RHEUMATOLOGY 09/02/23 Adriana Ma MD [address] [place] [address] Referring Physician ALLERGY 09/02/23 documented as of this encounter
--- OUTSIDE RECORDS SUMMARY | 2024-11-13 17:51 | XMS_ITS | Encounter Summary ---
Author Organization [facility] Address [address] [place] [address]. [place], [place] [address] [place] [address] Care Team Providers Care Refueling Rampman Name Role Phone Dayanara Plaza MD Primary Care Provider [phone] Perez Cervantes MD Unavailable Adriana Ma MD Unavailable [phone] Encounter Details Date Type Department Care Team (Late st Contact Info) Description 07/18/2024 [employer] Message Enc [facility] Medical Group Family & Internal Medicine [facility] [address] [place] [address] Day[place] Plaza [place] [id number] [place] [address]. [address] [place] [address] Pertussis Vaccine? Social History Tobacco [...] Recorded Patient Health Questionnaire-2 Score 0 04/03/2024 [facility] of Occupat ional Health - Occupational Stress [...] any time in the past 12 m [facility], were you homeless or living in a detention (including now)? No 05/23/2024 Education Answer Date Recorded What is the highest level of school you have completed or the highest degree you have received? Master's degree (e.g., MA, MS, Howard, MEd, PAPER BAG MAKER, KEKE) 12/21/2018 Comments No Sex and [...] st Contact Info) Description 11/14/2024 8:00 AM EVENT MARKETING COORDINATOR Office Visit [facility] Multispecialty Care - [facility] 3 [facility], [address] [place] [address] Montserrat Oliver NP 3 [facility] [address] [place] [address] 12/06/2024 9:30 AM EVENT MARKETING COORDINATOR Appointment [facility] Open MRI [address] [place] [address] [place] [address] [employer]. [address] [place] [phone] 03/02/2025 3:20 PM CDT Office Visit [facility] Family & Internal Medicine - [address] [address] [place] [address] [place] [phone] documented as of this encounter Goals Goal Patient Goal Type Associated Problems Recent Progress Patient-Stated? Author Family - family caregiver with be involved in care transitions and discharge planning Lifestyle No Nessa Pan, SENIOR CLIENT ADVISOR documented as of this encounter Visit Diagnoses Not on filedocumented in this encounter Additional Health Concerns Assessment Noted Time PHQ-9 Depression Total Score: 0 04/03/20 24 10:56 AM CDT documented as of this encounter Care Teams Refueling Rampman Relationship Specialty Start Date End Date Dayanara Plaza MD [address] [place] [address] [address] [place] [address] PCP - General FAMILY PRACTICE 03/01/23 Perez Cervantes MD [address] [place] [address] RHEUMATOLOGY 09/02/23 Adriana Ma MD [address] [place] [address] Referring Physician ALLERGY 09/02/23 documented as of this encounter
--- OUTSIDE RECORDS SUMMARY | 2024-11-13 17:51 | XMS_ITS | Encounter Summary ---
Author Organization [facility] Address [address] [place] [address]. [place] [address] [place] [address] Care Team Providers Care Commutator Assembler Name Role Phone Dayanara Plaza MD Primary Care Provider [phone] Perez Cervantes MD Unavailable Adriana Ma MD Unavailable [phone] Encounter Details Date Type Department Care Team (Late st Contact Info) Description 07/24/2024 Orders Only [facility] Family & Internal Medicine - [place] [phone] [place] [phone] Gema Sidhu Social History Tobacco Use [...] from your doctor or pharmacy? Never 05/23/2024 [facility] Utilities Answer Date Recorded In [...] Patient Health Questionnaire-2 Score 0 04/03/2024 [facility] - Occupational Stress Questionnaire Answer Date [...] were you homeless or living in a fdc (including now)? No 05/23/2024 Education Answer Date Recorded What is the highest level of school you have completed or the highest degree you have received? Master's degree (e.g., MA, MS, Howard, MEd, STOPPER MAKER, KEKE) 12/21/2018 Comments No Sex and [...] Contact Info) Description 11/14/2024 8:00 AM SENIOR SOFTWARE DEVELOPER Office Visit [facility] Multispecialty Care - [facility] 3 [facility], [address] [place] [address] Montserrat Oliver, DOREEN 3 [facility] [address] [place] [address] 12/06/2024 9:30 AM SENIOR SOFTWARE DEVELOPER Appointment [facility] Open MRI [address] [place] [address] [place] [address] [place] [address] 03/02/2025 3:20 PM CDT Office Visit [facility] Family & Internal Medicine - [place] [address] [place] [address] [place] [address] [place] [address] documented as of this encounter Goals Goal Patient Goal Type Associated Problems Recent Progress Patient-Stated? Author Family - family caregiver with be involved in care transitions and discharge planning Lifestyle No Nessa Pan, PRACTICE MANAGER documented as of this encounter Visit Diagnoses Diagnosis Insomnia due to other mental disorder documented in this encounter Additional Health Concerns Assessment Noted Time PHQ-9 Depression Total Score: 0 04/03/20 24 10:56 AM CDT documented as of this encounter Care Teams Commutator Assembler Relationship Specialty [place] [address] [place], [place] [id number] PCP - General FAMILY PRACTICE 03/01/23 Perez Cervantes MD [address] [place] [address] RHEUMATOLOGY 09/02/23 Adriana Ma MD [address] [place] [id number] Referring Physician ALLERGY 09/02/23 documented as of this encounter
--- OUTSIDE RECORDS SUMMARY | 2024-11-13 17:51 | XMS_ITS | Encounter Summary ---
Author Organization [facility] Address [address] [place] [address]. [place], [place] [address] [place] [address] Care Team Providers Care Server Service Assistant Name Role Phone Dayanara Plaza MD Primary Care Provider [phone] Perez Cervantes MD Unavailable Adriana Ma MD Unavailable [phone] Reason for Visit * Reason Comments TCM Encounter Details Date Type Department Care Team (Late st Contact Info) Description 06/02/2024 3:00 PM CDT Office Visit [facility] Family & Internal Medicine [address] [address] Dayanara Plaza MD [address] [place] [address]. [address] [place] [place] [address] TCM Social History Tobacco Use Types [...] from your doctor or pharmacy? Never 05/23/2024 [facility] Utilities Answer Date Recorded In the past 12 months has th e electric, gas, oil, or water [employer] threatened to shut off services in your [...] 04/03/2024 [facility] of Occupat ional [facility] - Occupational Stress Questionnaire Answer Date [...] Master's degree (e.g., MA, MS, Howard, MEd, JAVA WEBSPHERE DEVELOPER, KEKE) 12/21/2018 Comments No Sex and Gender [...] TCM History of Present Illness: CESARIO [facility] is a pleasant 59-year-old female with past [...] well. No other concerns for today. SPECIALISTS: outbound telemarketer, Telecommunications Sales Representative. 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 No other concerns for today [...] Inflammatory arthritis Plantar fasciitis RA (rheumatoid arthritis) ([facility]HCC [facility]) Past Surgical History: Procedure Laterality Date ABDOMINAL SURGERY 05/23/2024 LAPAROTOMY EXPLORATORY, LYSIS OF ADHESIONS BY DR ERVIN CHOLECYSTECTOMY COLONOSCOPY N/A 03/17/2021 COLONOSCOPY-NORMAL performed by Niall Matute MD at [facility] GI COLONOSCOPY STOMA DX INCLUDING COLLJ SPEC SPX AH 9 yrs. 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 ? Hospital discharge facility: [facility] Admission date: 05/23/2024 Discharge date: 05/30/2024 Discharge diagnosis: SBO Date of interactive contact with patient: 05/31/2024 done by my clinic's Clinical Chuck Splitter Face to Face Visit: 06/02/2024 ? Patient's [...] st Contact Info) Description 11/14/2024 8:00 AM LOADING MANAGER Office Visit [facility] Multispecialty Care - [facility] [address] [facility], [address] [place] [address] Montserrat Oliver NP 3 [facility] [address] [place] [address] 12/06/2024 9:30 AM LOADING MANAGER Appointment [facility] Open MRI [address] [place] [address] [place] [address] [facility] [place] [place] [address] [phone] 03/02/2025 3:20 PM CDT Office Visit [facility] Family & Internal Medicine - [address] [address] [place] [address] [facility] [place] [address] [phone] documented as of this encounter Goals Goal Patient Goal Type Associated Problems Recent Progress Patient-Stated? Author Family - family caregiver with be involved in care transitions and discharge planning Lifestyle No Nessa Pan, FORMULA CHECKER documented as of this encounter Results * [...] - 99 MG/DL 06/02/2024 5:47 PM CDT [facility] BUN 7 7 - 18 MG/DL 06/02/2024 5:47 PM CDT [facility] CREATININE S/P/B 0.83 0.55 - 1.02 MG/DL 06/02/2024 5:[address] [facility] SODIUM S/P/B 145 136 - 145 MMOL/L 06/02/2024 5:[address] [facility] POTASSIUM S/P/B 4.8 3.5 - 5.1 MMOL/L 06/02/2024 5:[address] [facility] CHLORIDE S/P/B 107 100 - 108 MMOL/L 06/02/2024 5:[address] [facility] CO2 30.3 21 - 32 MMOL/L 06/02/2024 5:[address] [facility] CALCIUM S/P/B 9.9 8.5 - 10.1 MG/DL 06/02/2024 5:[address] [facility] ANION GAP 7.7 5 - 15 MMOL/L 06/02/2024 5:[address] [facility] BUN CREATININE RATIO 8.4 6 - 26 06/02/2024 5:[address] [facility] GFR ESTIMATE 80(L) >90 ML/MIN/1.7 3 M2 06/02/2024 5:[address] [facility] Comment: NOTE: eGFR is not calculated for patients <18 years of age. This is an estimated GFR calculation using the new CKD EPI creatinine equation without race and so does not require a correction factor for race. This estimated GFR should not be used for calculating drug doses. 06/02/2024 3:43 PM CDT us Dayanara Plaza MD LABORATORY Final Result [facility] [address] [place] [address], [place] [phone] * (ABNORMAL) CBC W/DIFF AUTOMATED (06/02/2024 3:43 PM CDT) WBC 5.34 4.4 - 11.0 x10'3/uL 06/02/2024 5:[address] [facility] RBC 3.75(L) 4.50 - 5.10 x10'6/uL 06/02/2024 5:[address] [facility] HGB 12.2(L) 12.3 - 15.3 G/DL 06/02/2024 5:[address] [facility] HCT 37.2 35.9 - 44.6 % 06/02/2024 5:[address] [facility] MCV 99.2(H) 80.0 - 96.0 FL 06/02/2024 5:[address] [facility] MCH 32.5(H) 25.3 - 30.9 PG 06/02/2024 5:[address] [facility] MCHC 32.8 31.0 - 34.1 G/DL 06/02/2024 5:[address] [facility] RDW 14.0 12.4 - 15.1 % 06/02/2024 5:[address] [facility] PLT 326 151 - 353 x10'3/uL 06/02/2024 5:[address] [facility] MPV 10.8 9.6 - 12.0 FL 06/02/2024 5:[address] [facility] RBC MORPHOLOGY NORMAL 06/02/2024 5:[address] [facility] PLT MORPH. NORMAL 06/02/2024 5:[address] [facility] WBC MORPHOLOGY NORMAL 06/02/2024 5:[address] [facility] LYMPHOCYTES % 30.7 15.8 - 45.0 % 06/02/2024 5:[address] [facility] NEUTROPHILS % 53.3 42.1 - 71.9 % 06/02/2024 5:[address] [facility] MONOCYTES % 12.4 5.7 - 12.5 % 06/02/2024 5:[address] [facility] EOSINOPHILS 2.8 0.0 - 5.6 % 06/02/2024 5:[address] [facility] BASOPHILS 0.6 0.0 - 1.3 % 06/02/2024 5:[address] [facility] ABS. NEUTROPHILS 2.85 1.40 - 6.00 x10'3/uL 06/02/2024 5:[address] [facility] IMMATURE GRANS % 0.2 0.0 - 0.5 % 06/02/2024 5:[address] [facility] ABS. LYMPHOCYTES 1.64 0.80 - 4.70 x10'3/uL 06/02/2024 5:[address] [facility] 06/02/2024 3:43 PM CDT us Dayanara Plaza MD LABORATORY Final Result [facility] [address] [place] [address], [place] [phone] documented in this encounter Visit Diagnoses Diagnosis Hospital discharge follow-up- Primary Other follow-up examination SBO (small bowel obstruction) ([facility]HS/HCC) Unspecified intestinal obstruction Chronic anemia Anemia, unspecified Hypokalemia Hypopotassemia Gastroesophageal reflux disease without esophagitis Esophageal reflux Hospital discharge follow-up Other follow-up examination SBO (small bowel obstruction) ([facility]/HCC) Unspecified intestinal obstruction documented in this encounter Additional Health Concerns Assessment Noted Time PHQ-9 Depression Total Score: 0 04/03/20 10:56 AM CDT documented as of this encounter Care Teams Server Service Assistant Relationship Specialty [place] [address] [address] [place] [address] PCP - General FAMILY PRACTICE 03/01/23 Perez Cervantes MD [address] [phone] RHEUMATOLOGY 09/02/23 Adriana Ma MD [address] [place] [address] Referring Physician ALLERGY 09/02/23 documented as of this encounter
--- OUTSIDE RECORDS SUMMARY | 2024-11-13 17:51 | XMS_ITS | Encounter Summary ---
Author Organization [facility] Address [address] [place] [address]. [place], [place] [address] [place] [address] Care Team Providers Care Pipe Organ Tuner And Repairer Name Role Phone Dayanara Plaza MD Primary Care Provider [phone] Perez Cervantes MD Unavailable Adriana Ma MD Unavailable [phone] Encounter Details Date Type Department Care Team (Latest Contact Info) Description 07/25/2024 [employer] [facility] Family & Internal Medicine [facility] [address] [place] [address] [place] [phone] [place] [address]. [address] [place] [address] Mail order prescriprion [facility] Social History Tobacco Use Types Packs/Day Years [...] from your doctor or pharmacy? Never 05/23/2024 [facility] Utilities Answer Date Recorded In the past 12 months has [facility] [employer], gas, oil, or water [employer] threatened to shut off services in your [...] Recorded Patient Health Questionnaire-2 Score 0 04/03/2024 [facility] [place] of Occupat ional Health - Occupational Stress [...] any time in the past 12 m [facility], were you homeless or living in a intermediate (including now)? No 05/23/2024 Education Answer Date Recorded What is the highest level of school you have completed or the highest degree you have received? Master's degree (e.g., MA, MS, Howard, MEd, CARDIAC MONITOR TECHNICIAN, KEKE) 12/21/2018 Comments No Sex and [...] 11:05 AM CDT Subject: Mail order prescriprion [facility] I would like to transfer my Trazadone RX to [facility] but they said they have been unable me to reach you. Please let them know! Thank you! documented in this encounter Plan of Treatment Upcoming Encounters Date Type Department Care Team (Late st Contact Info) Description 11/14/2024 8:00 AM HAT SPRAYER Office Visit [facility] Multispecialty Care - [facility] 3 [facility], [address] [place] [phone] Montserrat Oliver NP 3 [facility] [address] [place] [address] 12/06/2024 9:30 AM HAT SPRAYER Appointment [facility] Open MRI [address] [place] [address] [place] [address] [facility]. [address] [place] [phone] 03/02/2025 3:20 PM CDT Office Visit [facility] Family & Internal Medicine - [address] [phone] [place] [address] [facility]. [address] [place] [phone] documented as of this encounter Goals Goal Patient Goal Type Associated Problems Recent Progress Patient-Stated? Author Family - family caregiver with be involved in care transitions and discharge planning Lifestyle No Nessa Pan, CERTIFIED ENERGY MANAGER documented as of this encounter Visit Diagnoses Diagnosis Insomnia due to other mental disorder documented in this encounter Additional Health Concerns Assessment Noted Time PHQ-9 Depression Total Score: 0 04/03/20 24 10:56 AM CDT documented as of this encounter Care Teams Pipe Organ Tuner And Repairer Relationship Specialty Start [place] [address] [facility]. [address] [place] [address] PCP - General FAMILY PRACTICE 03/01/23 Perez Cervantes MD [address] [place] [phone] RHEUMATOLOGY 09/02/23 Adriana Ma MD [address] [place] [address] Referring Physician ALLERGY 09/02/23 documented as of this encounter
--- OUTSIDE RECORDS SUMMARY | 2024-11-13 17:51 | XMS_ITS | Encounter Summary ---
Author Organization [facility] Address [facility] [facility] [place] [address] [place] [address] Care Team Providers Care Visual Merchandise Manager Name Role Phone Dayanara Plaza MD Primary Care Provider [phone] Perez Cervantes MD Unavailable Adriana Ma MD Unavailable [phone] Reason for Referral * Procedure (Routine) - Closed Specialty Diagnoses / Procedures Referred By Contac t Referred To Contact [facility] Physical Therapy Diagnoses Tarsal tunnel syndrome, right lower limb Procedures EMG Riley Thompson DPM [address] [address] Phone: tel: fax: Hya Melara MD 1 [place] [address] Phone: tel: fax: Referral ID Status Reason Start Date Expiration Date Visits Re quested Visits Authorized [id number] Closed 08/30/2024 08/30/2025 1 1 Encounter Details Date Type Department Care Team (Late st Contact Info) Description 08/30/2024 Orders Only [facility] [place] [address] Hay Melara MD [address] [place] [address] Social History Tobacco Use Types Packs/Day Years [...] Recorded In the past 12 months has [facility] [employer], gas, oil, or water [employer] threatened to shut off services in your [...] Recorded Patient Health Questionnaire-2 Score 0 04/03/2024 [facility] of Occupat ional Health - Occupational Stress [...] any time in the past [address] [facility], were you homeless or living in a mcfp (including now)? No 05/23/2024 Education Answer Date Recorded What is the highest level of school you have completed or the highest degree you have received? Master's degree (e.g., MA, MS, Howard, MEd, TEACHING MANAGER, KEKE) 12/21/2018 Comments No Sex and [...] st Contact Info) Description 11/14/2024 8:00 AM LABOR RELATIONS REPRESENTATIVE Office Visit [facility] Multispecialty Care - [facility] 3 [facility], [address] [place] [phone] Montserrat Oliver NP 3 [facility] [address] [place] [address] 12/06/2024 9:30 AM LABOR RELATIONS REPRESENTATIVE Appointment [facility] Open MRI [address] [place] [address] [place] [address] [facility] [address] [place] [address] 03/02/2025 3:20 PM CDT Office Visit [facility] Medical [facility] Family & Internal Medicine - [place] [address] [place] [address] [place] [address] [facility]. [address] [place] [address] documented as of this encounter Goals Goal Patient Goal Type Associated Problems Recent Progress Patient-Stated? Author Family - family caregiver with be involved in care transitions and discharge planning Lifestyle No Nessa Pan, MANAGER PROPERTY documented as of this encounter Results * EMG (08/30/2024 2:44 PM CDT) 08/30/2024 2:44 PM CDT Narrative ESCRIPTION - 09/04/2024 12:49 PM CDT Patient Name: HANS PASCUAL Date of : 1965 Account: [id number] Facility: [facility] Location: [facility] Date of Service: 08/30/2024 EMG COMPLAINT: [...] ? HAY MELARA D: ??08/30/2024 03:04 PM ??#[id number] T: ??08/30/2024 04:06 PM ??/SKY Riley Thompson DPM NEUROLOGY ORDERABLES Final Resul t ESCRIPTION documented in this encounter Visit Diagnoses Diagnosis Tarsal tunnel syndrome, right lower limb- Primary Tarsal tunnel syndrome, right lower limb documented in this encounter Additional Health Concerns Assessment Noted Time PHQ-9 Depression Total Score: 0 04/03/20 24 10:56 AM CDT documented as of this encounter Care Teams Visual Merchandise Manager Relationship Specialty Start [place] [address] [facility]. [address] [place] [address] PCP - General FAMILY PRACTICE 03/01/23 Perez Cervantes MD [address] [phone] RHEUMATOLOGY 09/02/23 Adriana Ma MD [address] [place] [address] Referring Physician ALLERGY 09/02/23 documented as of this encounter
--- OUTSIDE RECORDS SUMMARY | 2024-11-13 17:51 | XMS_ITS | Encounter Summary ---
Author Organization [facility] Address [address] [place] [address]. [place], [place] [id number] [place] [id number] Care Team Providers Care Excel Developer Name Role Phone Dayanara Plaza MD Primary Care Provider [phone] Perez Cervantes MD Unavailable Adriana Ma MD Unavailable [phone] Reason for Referral * Imaging (Emergency) - New Request Specialty Diagnoses / Procedures Referred By Contac t Referred To Contact RADIOLOGY Procedures CT ABD+PEL W CON [facility] Med/Surg 3[address] [place] [address] Phone: tel: Referral ID Status Reason Start Date Expiration Date V isits Requested Visits Authorized [id number] New Request 05/28/2024 05/28/2025 1 1 Reason for Visit * Auth/Cert Specialty Diagnoses / Procedures Referred By Contac t Referred To Contact Diagnoses SBO Procedures GENERAL Sydni Sarkar, DO [address] [place] [address] Phone: tel: fax: Referral ID Status Reason Start Date Expiration Date Visits Re quested Visits Authorized [id number] 1 1 Encounter Details Date Type Department Care Team (Late st Contact Info) Description 05/23/2024 7:37 AM CDT - 05/30/2024 10:22 AM CDT Hospital Encounter [facility] Med[facility]Surg [address]rd Floor [address] [facility] [place] [address] Sydni Sarkar, DO 1 [facility] [place] [address] Sonya Cantrell, DO 1 . [facility] [place] [address] Discharge Disposition: Home or Self Care (Routine [...] from your doctor or pharmacy? Never 05/23/2024 [facility] Utilities Answer Date Recorded In the past 12 months has [facility] [employer], gas, oil, or water [place] threatened to shut off services in your [...] Recorded Patient Health Questionnaire-2 Score 0 04/03/2024 [facility] - Occupational Stress Questionnaire Answer Date [...] any time in the past [address] [facility], were you homeless or living in a care home (including now)? No 05/23/2024 Education Answer Date Recorded What is the highest level of school you have completed or the highest degree you have received? Master's degree (e.g., MA, MS, Howard, MEd, WEBFOCUS DEVELOPER, KEKE) 12/21/2018 Comments No Sex and [...] rheumatoid arthritis, and depression/anxiety who presented to [facility] in [place] emergency room with ongoing abdominal pain, nausea, [...] Patient had an NG tube placed at [facility] ER and patient states she is feeling [...] Hospital Course: SBO Ms. Pascual transferred from [facility] after 3 consecutive ER visits for worsening abd pain. CT A/P (05/23): mid to distal small bowel obstruction NG placed in ER at [facility] NPO/IVF Pain Control - monitor for toxicity [...] input(s): PH , PCO2 , PO2 , [id number] , BICARBWB , BASEDEFICIT , BASEEXCESS in [...] obstruction COMPARISON: CT 05/23/2024 2:40 AM TECHNIQUE: Gasoline Power Shovel Operator image of the abdomen was obtained, oral contrast was administered by NG tube. Images of the abdomen were obtained 20, 4 0, 60, 90, 120, 180 minutes after administration. FINDINGS: Gasoline Power Shovel Operator image demonstrates moderate smallbowel dilatation. NG tube [...] distal fundus or proximal body of stomach. instrument assembly supervisor leads overlie the chest and abdomen. Mild [...] Department: 85 Room: EXAM 505 Gender: Female Cherry Dipper: : 1965 Requested By: NIMISHA RUANO Order Number: [id number] Reading MD: Guanako Hancock Measurements Intervals [place] Rate: 73 P: 82 MO:168 QRS: 58 QRSD: 89 T: 48 QT: [...] Everywhere. * Lysis of Adhesions Discharge Instructions (Botswanan) documented in this encounter Medications at Time [...] this encounter Progress Notes * Nessa Pan, GEOGRAPHIC INFORMATION SYSTEMS MANAGER - 05/30/2024 10:22 AM CDT Patient discharged [...] note were not included. General Surgery Progress Note-[facility] Hans Pascual is an 59-year-old [...] note were not included. General Surgery Progress Note-[facility] Hans Kongkstein is an 59-year-old [...] at 05/28/242028 acetaminophen, albuterol sulfate HFA, HYDROcodone-acetaminophen, gpxxwnseq-mscipcrp-gdxyaapgoma, morphine, morphine, ondansetron, ondansetron, phenol Labs, Imaging, [...] input(s): PH , PCO2 , PO2 , [id number] , BICARBWB , BASEDEFICIT , BASEEXCESS in [...] obstruction COMPARISON: CT 05/23/2024 2:40 AM TECHNIQUE: Gasoline Power Shovel Operator image of the abdomen was obtained, oral contrast was administered by NG tube. Images of the abdomen were obtained 20, 4 0, 60, 90, 120, 180 minutes after administration. FINDINGS: Gasoline Power Shovel Operator image demonstrates moderate smallbowel dilatation. NG tube [...] distal fundus or proximal body of stomach. instrument assembly supervisor leads overlie the chest and abdomen. Mild [...] AM ECG 12 lead Result Date: 05/22/2024 [facility] Test Date: 2024-05-22 Pat Name: [facility] Department: 85 Room: EXAM 505 Gender: Female Cherry Dipper: : 1965 Requested By: NIMISHA RUANO Order Number: [id number] Reading MD: Guanako Hancock Measurements Intervals [place] Rate: 73 P: 82 MO: 168 QRS: 58 QRSD: 89 T: 48 [...] & Plan SBO Ms. Pascual transferred from [facility] after 3 consecutive ER visits for worsening abd pain. CT A/P (05/23): mid to distal small bowel obstruction NG placed in ER at [facility] NPO/IVF Pain Control - monitor for toxicity [...] 05/28/24 1035 acetaminophen, albuterol sulfate HFA, HYDROcodone-acetaminophen, jhhiunfpb-xgvcfcoz-iluyzioplox, morphine, morphine, ondansetron, ondansetron, phenol Labs, Imaging, [...] input(s): PH , PCO2 , PO2 , [id number] , BICARBWB , BASEDEFICIT , BASEEXCESS in [...] obstruction COMPARISON: CT 05/23/2024 2:40 AM TECHNIQUE: Gasoline Power Shovel Operator image of the abdomen was obtained, oral contrast was administered by NG tube. Images of the abdomen were obtained 20, 4 0, 60, 90, 120, 180 minutes after administration. FINDINGS: Gasoline Power Shovel Operator image demonstrates moderate smallbowel dilatation. NG tube [...] distal fundus or proximal body of stomach. instrument assembly supervisor leads overlie the chest and abdomen. Mild [...] AM ECG 12 lead Result Date: 05/22/2024 [facility] Test Date: 2024-05-22 Pat Name: [facility] Department: 85 Room: EXAM [facility] Gender: Female Cherry Dipper: : 1965 Requested By: NIMISHA RUANO Order Number: [id number] Reading MD: Guanako Hancock Measurements Intervals [place] Rate: 73 P: 82 MO: 168 QRS: 58 QRSD: 89 T: 48 [...] & Plan SBO Ms. Pascual transferred from [facility] after 3 consecutive ER visits for worsening abd pain. CT A/P (05/23): mid to distal small bowel obstruction NG placed in ER at [facility] NPO/IVF Pain Control - monitor for toxicity [...] input(s): PH , PCO2 , PO2 , [id number] , BICARBWB , BASEDEFICIT , BASEEXCESS in [...] obstruction COMPARISON: CT 05/23/2024 2:40 AM TECHNIQUE: Gasoline Power Shovel Operator image of the abdomen was obtained, oral contrast was administered by NG tube. Images of the abdomen were obtained 20, 4 0, 60, 90, 120, 180 minutes after administration. FINDINGS: Gasoline Power Shovel Operator image demonstrates moderate smallbowel dilatation. NG tube [...] distal fundus or proximal body of stomach. instrument assembly supervisor leads overlie the chest and abdomen. Mild [...] AM ECG 12 lead Result Date: 05/22/2024 [facility] Test Date: 2024-05-22 [facility] Department: 85 Room: EXAM 505 Gender: Female Cherry Dipper: : 1965 Requested By: NIMISHA RUANO Order Number: [id number] Reading MD: Guanako Hancock Measurements Intervals [place] Rate: 73 P: 82 MO: 168 QRS: 58 QRSD: 89 T: 48 [...] & Plan SBO Ms. Pascual transferred from [facility] after 3 consecutive ER visits for worsening abd pain. CT A/P (05/23): mid to distal small bowel obstruction NG placed in ER at [facility] NPO/IVF Pain Control - monitor for toxicity [...] DO 05/27/2024 7:26 AM * Nessa Pan GEOGRAPHIC INFORMATION SYSTEMS MANAGER - 05/26/2024 2:20 PM CDT 05/26 Patient with positive flatus, no BM yet, diet to full liquids. Patient has been ambulating in halls without difficulty, plans to return home with spouse at discharge, currently declining home health cw * Nessa Pan GEOGRAPHIC INFORMATION SYSTEMS MANAGER - 05/26/2024 2:20 PM CDT Positive flatus, [...] input(s): PH , PCO2 , PO2 , [id number] , BICARBWB , BASEDEFICIT , BASEEXCESS in [...] obstruction COMPARISON: CT 05/23/2024 2:40 AM TECHNIQUE: Gasoline Power Shovel Operator image of the abdomen was obtained, oral contrast was administered by NG tube. Images of the abdomen were obtained 20, 4 0, 60, 90, 120, 180 minutes after administration. FINDINGS: Gasoline Power Shovel Operator image demonstrates moderate smallbowel dilatation. NG tube [...] distal fundus or proximal body of stomach. instrument assembly supervisor leads overlie the chest and abdomen. Mild [...] 12 lead Result Date: 05/22/2024 [facility] [place] Test Date: 2024-05-22 Pat [facility] Department: 85 Room: EXAM 505 Gender: Female Cherry Dipper: : 1965 Requested By: NIMISHA RUANO Order Number: [id number] Reading MD: Guanako Hancock Measurements Intervals [place] Rate: 73 P: 82 MO: 168 QRS: 58 QRSD: 89 T: 48 [...] & Plan SBO Ms. Pascual transferred from [facility] after 3 consecutive ER visits for worsening abd pain. CT A/P (05/23): mid to distal small bowel obstruction NG placed in ER at [facility] NPO/IVF Pain Control - monitor for toxicity [...] moisture exposure Outcome: Progressing * Nessa Pan GEOGRAPHIC INFORMATION SYSTEMS MANAGER - 05/25/2024 2:50 PM CDT 05/25 NG d/c'd today, patient on clear liquid diet, awaiting return of bowel function. Patient ambulating in halls cw * Nessa Pan GEOGRAPHIC INFORMATION SYSTEMS MANAGER - 05/25/2024 2:50 PM CDT NG d/c'd [...] input(s): PH , PCO2 , PO2 , [id number] , BICARBWB , BASEDEFICIT , BASEEXCESS in [...] obstruction COMPARISON: CT 05/23/2024 2:40 AM TECHNIQUE: Gasoline Power Shovel Operator image of the abdomen was obtained, oral contrast was administered by NG tube. Images of the abdomen were obtained 20, 4 0, 60, 90, 120, 180 minutes after administration. FINDINGS: Gasoline Power Shovel Operator image demonstrates moderate smallbowel dilatation. NG tube [...] distal fundus or proximal body of stomach. instrument assembly supervisor leads overlie the chest and abdomen. Mild [...] AM ECG 12 lead Result Date: 05/22/2024 [facility] Test Date: 2024-05-22 Pat [facility] Department: 85 Room: EXAM 505 Gender: Female Cherry Dipper: : 1965 Requested By: NIMISHA RUANO Order Number: [id number] Reading MD: Guanako Hancock Measurements Intervals [place] Rate: 73 P: 82 MO: 168 QRS: 58 QRSD: 89 T: 48 [...] & Plan SBO Ms. Pascual transferred from [facility] after 3 consecutive ER visits for worsening abd pain. 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 Images of the abdomen were obtained 20, 4 0, 60, 90, 120, 180 minutes after administration. FINDINGS: Gasoline Power Shovel Operator image demonstrates moderate smallbowel dilatation. NG tube [...] distal fundus or proximal body of stomach. instrument assembly supervisor leads overlie the chest and abdomen. Mild [...] AM ECG 12 lead Result Date: 05/22/2024 [facility] Test Date: 2024-05-22 Pat Name: [facility] Department: 85 Room: EXAM 505 Gender: Female Cherry Dipper: : 1965 Requested By: NIMISHA RUANO Order Number: [id number] Reading MD: Guanako Hancock Measurements Intervals [place] Rate: 73 P: 82 MO: 168 QRS: 58 QRSD: 89 T: 48 [...] & Plan SBO Ms. Pascual transferred from [facility] after 3 consecutive ER visits for worsening abd pain. CT A/P (05/23): mid to distal small bowel obstruction NG placed in ER at [facility] NPO/IVF Pain Control - monitor for toxicity [...] rheumatoid arthritis, and depression/anxiety who presented to [facility] in [place] emergency room with ongoing abdominal pain, nausea, [...] Patient had an NG tube placed at [facility] ER and patient states she is feeling [...] Inflammatory arthritis Plantar fasciitis RA (rheumatoid arthritis) ([facility]/HCC HHS/HCC) Past Surgical History: Procedure Laterality Date CHOLECYSTECTOMY COLONOSCOPY N/A 03/17/2021 COLONOSCOPY-NORMAL performed by Niall Matute MD at [facility] GI COLONOSCOPY STOMA DX INCLUDING COLLJ SPEC SPX AH 9 yrs. 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 instrument assembly supervisor leads overlie the chest and abdomen. Mild [...] & PLAN SBO Ms. Pascual transferred from [facility] after 3 consecutive ER visits for worsening abd pain. CT A/P (05/23): mid to distal small bowel obstruction NG placed in ER at [facility] NPO/IVF Pain Control - monitor for toxicity [...] for this patient. Patient seen and examined. WAIT STAFF/PA note reviewed. General: . Awake, alert, No acute distress CV: RRR, no murmur noted Pulmonary: Clear to auscultation. Nonlabored. No wheezing/rhonchi/crackles Abdomen: + mildly distended, diffusely tender to palpation Extremities: No significant edema Neuro: alert and oriented; Moves all extremities. No focal neurological deficits Agree with plan as outlined above. Transferred to [facility] for SBO. Surgery consulted, appreciate rec's.Continue NG [...] presents to the hospital as transfer from [facility] in [place] for evaluation of small bowel obstruction as [...] Inflammatory arthritis Plantar fasciitis RA (rheumatoid arthritis) ([facility]/HCC [facility]) PSH: Past Surgical History: Procedure Laterality Date CHOLECYSTECTOMY COLONOSCOPY N/A 03/17/2021 COLONOSCOPY-NORMAL performed by Niall Matute MD at [facility] GI COLONOSCOPY STOMA DX INCLUDING [...] Master's degree (e.g., MA, MS, Howard, MEd, WEBFOCUS DEVELOPER, KEKE) 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 instrument assembly supervisor leads overlie the chest and abdomen. Mild [...] 2 and the skin was closed with uagustine. Dressings were applied. Patient tolerated the procedure [...] st Contact Info) Description 11/14/2024 8:00 AM IMPORT SPECIALIST Office Visit [facility] [address], [address] [place] [address] Montserrat Oliver NP [address] [address] [place] [address] 12/06/2024 9:30 AM IMPORT SPECIALIST Appointment [facility] Open MRI [address] [place] [address] [place] [address] [place] [address] 03/02/2025 3:20 PM CDT Office Visit [facility] Family & Internal Medicine - [address] [phone] [place] [address] [place] [address] documented as of this encounter Goals Goal Patient Goal Type Associated Problems Recent Progress Patient-Stated? Author Family - family caregiver with be involved in care transitions and discharge planning Lifestyle No Nessa Pan, GEOGRAPHIC INFORMATION SYSTEMS MANAGER documented as of this encounter Procedures Procedure [...] CBC W/DIFF AUTOMATED (05/30/2024 6:46 AM CDT) [facility] WBC 4.04(L) 4.5 - 11.0 x10'3/uL 05/30/2024 7:21 AM CDT [facility] RBC 3.50(L) 4.20 - 5.40 x10'6/uL 05/30/2024 7:21 AM CDT [facility] HGB 11.2(L) 12.0 - 16.0 G/DL 05/30/2024 7:21 AM CDT [facility] HCT 34.7(L) 38.0 - 48.0 % 05/30/2024 7:21 AM CDT [facility] MCV 99.1(H) 81.0 - 99.0 FL 05/30/2024 7:21 AM CDT [facility] MCH 32.0(H) 27.0 - 31.0 PG 05/30/2024 7:21 AM CDT [facility] MCHC 32.3 32.0 - 36.0 G/DL 05/30/2024 7:21 AM CDT [facility] RDW 14.6(H) 11.5 - 14.5 % 05/30/2024 7:21 AM CDT [facility] PLT 255 130 - 400 x10'3/uL 05/30/2024 7:21 AM CDT [facility] MPV 10.7 9.3 - 12.2 FL 05/30/2024 7:21 AM CDT [facility] DIFFERENTIAL TYPE MANUAL DIFFERENTIAL 05/30/2024 7:30 AM CDT [facility] SEG NEUTROPHILS 65 % 7:30 AM CDT [facility] LYMPHOCYTES 23 % 05/30/2024 7:30 AM CDT [facility] MONOCYTES 9 % 05/30/2024 7:30 AM CDT [facility] EOSINOPHILS 3 % 05/30/2024 7:30 AM CDT [facility] ABS. NEUTROPHILS 2.63 1.80 - 7.70 x10'3/uL 05/30/2024 7:30 AM CDT [facility] ABS. LYMPHOCYTES 0.93(L) 1.00 - 4.80 x10'3/uL 05/30/2024 7:30 AM CDT [facility] ABS. MONOCYTES 0.36 0.24 - 0.86 x10'3/uL 05/30/2024 7:30 AM CDT [facility] ABS. EOSINOPHILS 0.12 0.04 - 0.36 x10'3/uL 05/30/2024 7:30 AM CDT [facility] RBC MORPHOLOGY RBC MORPHOLOGY APPEARS NORMAL. SLIDE REVIEWED. 05/30/2024 7:30 AM CDT [facility] PLT EST. ADEQUATE 05/30/2024 7:30 AM CDT [facility] 05/30/2024 6:46 AM CDT us Sonya Cantrell DO LABORATORY Final Res ult [facility] [address] [place] [address], * (ABNORMAL) BASIC METABOLIC PANEL (05/30/2024 6:46 AM CDT) GLUCOSE 95 70 - 99 MG/DL 05/30/2024 7:29 AM CDT [facility] BUN 3(L) 7 - 18 MG/DL 05/30/2024 7:29 AM CDT [facility] CREATININE S/P/B 0.57 0.55 - 1.02 MG/DL 05/30/2024 7:29 AM CDT [facility] SODIUM S/P/B 142 136 - 145 MMOL/L 05/30/2024 7:29 AM CDT [facility] POTASSIUM S/P/B 3.5 3.5 - 5.1 MMOL/L 05/30/2024 7:29 AM CDT [facility] CHLORIDE S/P/B 113(H) 100 - 108 MMOL/L 05/30/2024 7:29 AM CDT [facility] CO2 22.1 21 - 32 MMOL/L 05/30/2024 7:29 AM CDT [facility] CALCIUM S/P/B 9.2 8.5 - 10.1 MG/DL 05/30/2024 7:29 AM CDT [facility] ANION GAP 6.9 5 - 15 MMOL/L 05/30/2024 7:29 AM CDT [facility] BUN CREATININE RATIO 5.3(L) 6 - 26 05/30/2024 7:29 AM CDT [facility] GFR ESTIMATE >90 >90 ML/MIN/1.7 3 M2 05/30/2024 7:29 AM CDT [facility] Comment: NOTE: eGFR is not calculated for patients <18 years of age. This is an estimated GFR calculation using the new CKD EPI creatinine equation without race and so does not require a correction factor for race. This estimated GFR should not be used for calculating drug doses. 05/30/2024 6:46 AM CDT us Sonya Cantrell DO LABORATORY Final Res ult [facility] [address] [place] [address], [place] [phone] * MAGNESIUM (05/29/2024 5:15 AM CDT) Pathologist [facility] MAGNESIUM 2.0 1.8 - 2.4 MG/DL 05/29/2024 7:55 AM CDT [facility] 05/29/2024 5:15 AM CDT Sonya Cantrell DO LABORATORY Final Res ult [facility] [address] [place] [address], [place] [phone] * (ABNORMAL) CBC W/DIFF AUTOMATED (05/29/2024 5:15 AM CDT) [facility] WBC 4.41(L) 4.5 - 11.0 x10'3/uL 05/29/2024 5:42 AM CDT [facility] RBC 3.17(L) 4.20 - 5.40 x10'6/uL 05/29/2024 5:42 AM CDT [facility] HGB 10.3(L) 12.0 - 16.0 G/DL 05/29/2024 5:42 AM CDT [facility] HCT 30.6(L) 38.0 - 48.0 % 05/29/2024 5:42 AM CDT [facility] MCV 96.5 81.0 - 99.0 FL 05/29/2024 5:42 AM CDT [facility] MCH 32.5(H) 27.0 - 31.0 PG 05/29/2024 5:42 AM CDT [facility] MCHC 33.7 32.0 - 36.0 G/DL 05/29/2024 5:42 AM CDT [facility] RDW 14.2 11.5 - 14.5 % 05/29/2024 5:42 AM CDT [facility] PLT 208 130 - 400 x10'3/uL 05/29/2024 5:42 AM CDT [facility] MPV 10.3 9.3 - 12.2 FL 05/29/2024 5:42 AM CDT [facility] DIFFERENTIAL TYPE AUTOMATED DIFFERENTIAL 05/29/2024 5:42 AM CDT [facility] NEUTROPHILS % 59.2 % 05/29/2024 5:42 AM CDT [facility] LYMPHOCYTES % 24.7 % 05/29/2024 5:42 AM CDT [facility] MONOCYTES % 13.4 % 05/29/2024 5:42 AM CDT [facility] EOSINOPHILS 2.3 % 05/29/2024 5:42 AM CDT [facility] BASOPHILS 0.2 % 05/29/2024 5:42 AM CDT [facility] IMMATURE GRANS % 0.2 % 05/29/20 5:42 AM CDT [facility] ABS. NEUTROPHILS 2.61 1.80 - 7.70 x10'3/uL 05/29/2024 5:42 AM CDT [facility] ABS. LYMPHOCYTES 1.09 1.00 - 4.80 x10'3/uL 05/29/2024 5:42 AM CDT [facility] ABS. MONOCYTES 0.59 0.24 - 0.86 x10'3/uL 05/29/2024 5:42 AM CDT [facility] ABS. EOSINOPHILS 0.10 0.04 - 0.36 x10'3/uL 05/29/2024 5:42 AM CDT [facility] ABS. BASOPHILS 0.01 0.01 - 0.08 x10'3/uL 05/29/2024 5:42 AM CDT [facility] ABS. IMMATURE GRANULOCYTES 0.01 0.00 - 0.49 x10'3/uL 05/29/2024 5:42 AM CDT [facility] 05/29/2024 5:15 AM CDT us Sonya Cantrell DO LABORATORY Final Res ult [facility] [address] [place] [address], [place] [phone] * (ABNORMAL) BASIC METABOLIC PANEL (05/29/2024 5:15 AM CDT) GLUCOSE 80 70 - 99 MG/DL 05/29/2024 5:48 AM CDT [facility] BUN 4(L) 7 - 18 MG/DL 05/29/2024 5:48 AM CDT [facility] CREATININE S/P/B 0.49(L) 0.55 - 1.02 MG/DL 05/29/2024 5:48 AM CDT [facility] SODIUM S/P/B 142 136 - 145 MMOL/L 05/29/2024 5:48 AM CDT [facility] POTASSIUM S/P/B 3.2(L) 3.5 - 5.1 MMOL/L 05/29/2024 5:48 AM CDT [facility] CHLORIDE S/P/B 113(H) 100 - 108 MMOL/L 05/29/2024 5:48 AM CDT [facility] CO2 22.1 21 - 32 MMOL/L 05/29/2024 5:48 AM CDT [facility] CALCIUM S/P/B 8.4(L) 8.5 - 10.1 MG/DL 05/29/2024 5:48 AM CDT [facility] ANION GAP 6.9 5 - 15 MMOL/L 05/29/2024 5:48 AM CDT [facility] BUN CREATININE RATIO 8.2 6 - 24 05/29/2024 5:48 AM CDT [facility] GFR ESTIMATE >90 >90 ML/MIN/1.7 3 M2 05/29/2024 5:48 AM CDT [facility] Comment: NOTE: eGFR is not calculated for patients <18 years of age. This is an estimated GFR calculation using the new CKD EPI creatinine equation without race and so does not require a correction factor for race. This estimated GFR should not be used for calculating drug doses. 05/29/2024 5:15 AM CDT Sonya Cantrell DO LABORATORY Final Res ult [facility] [address] [place] [address], * CT ABD+PEL W CON (05/28/2024 9:24 AM CDT) Anatomical Region Laterality Modality Abdomen Computed Tomogra phy 05/28/2024 9:30 AM CDT Impressions 05/28/2024 9:32 AM CDT IMPRESSION: 1. Mild diffuse ileus 2. Mild right pleural effusion with concomitant atelectasis Ordered By: LIAN SAUER Interpreted By: Caleb Rodirguez MD, 05/28/2024 9:30 AM Narrative 05/28/2024 9:32 [...] - 11.0 x10'3/uL 05/28/2024 5:51 AM CDT [facility] RBC 3.50(L) 4.20 - 5.40 x10'6/uL 05/28/2024 5:51 AM CDT [facility] HGB 11.4(L) 12.0 - 16.0 G/DL 05/28/2024 5:51 AM CDT [facility] HCT 34.0(L) 38.0 - 48.0 % 05/28/2024 5:51 AM CDT [facility] MCV 97.1 81.0 - 99.0 FL 05/28/2024 5:51 AM CDT [facility] MCH 32.6(H) 27.0 - 31.0 PG 05/28/2024 5:51 AM CDT [facility] MCHC 33.5 32.0 - 36.0 G/DL 05/28/2024 5:51 AM CDT [facility] RDW 14.3 11.5 - 14.5 % 05/28/2024 5:51 AM CDT [facility] PLT 217 130 - 400 x10'3/uL 05/28/2024 5:51 AM CDT [facility] MPV 10.5 9.3 - 12.2 FL 05/28/2024 5:51 AM CDT [facility] DIFFERENTIAL TYPE AUTOMATED DIFFERENTIAL 05/28/2024 5:51 AM CDT [facility] NEUTROPHILS % 60.6 % 05/28/2024 5:51 AM CDT [facility] LYMPHOCYTES % 26.3 % 05/28/2024 5:51 AM CDT [facility] MONOCYTES % 10.7 % 05/28/2024 5:51 AM CDT [facility] EOSINOPHILS 2.0 % 05/28/2024 5:51 AM CDT [facility] BASOPHILS 0.2 % 05/28/2024 5:51 AM CDT [facility] IMMATURE GRANS % 0.2 % 05/28/20 5:51 AM CDT [facility] ABS. NEUTROPHILS 2.72 1.80 - 7.70 x10'3/uL 05/28/2024 5:51 AM CDT [facility] ABS. LYMPHOCYTES 1.18 1.00 - 4.80 x10'3/uL 05/28/2024 5:51 AM CDT [facility] ABS. MONOCYTES 0.48 0.24 - 0.86 x10'3/uL 05/28/2024 5:51 AM CDT [facility] ABS. EOSINOPHILS 0.09 0.04 - 0.36 x10'3/uL 05/28/2024 5:51 AM CDT [facility] ABS. BASOPHILS 0.01 0.01 - 0.08 x10'3/uL 05/28/2024 5:51 AM CDT [facility] ABS. IMMATURE GRANULOCYTES 0.01 0.00 - 0.49 x10'3/uL 05/28/2024 5:51 AM CDT [facility] 05/28/2024 5:14 AM CDT us Sonya Cantrell DO LABORATORY Final Res ult [facility] [address] [place] [id number], [place] [phone] * (ABNORMAL) BASIC METABOLIC PANEL (05/28/2024 5:14 AM CDT) GLUCOSE 85 70 - 99 MG/DL 05/28/2024 6:07 AM CDT [facility] BUN 5(L) 7 - 18 MG/DL 05/28/2024 6:07 AM CDT [facility] CREATININE S/P/B 0.61 0.55 - 1.02 MG/DL 05/28/2024 6:07 AM CDT [facility] SODIUM S/P/B 140 136 - 145 MMOL/L 05/28/2024 6:07 AM CDT [facility] POTASSIUM S/P/B 3.1(L) 3.5 - 5.1 MMOL/L 05/28/2024 6:07 AM CDT [facility] CHLORIDE S/P/B 109(H) 100 - 108 MMOL/L 05/28/2024 6:07 AM CDT [facility] CO2 26.1 21 - 32 MMOL/L 05/28/2024 6:07 AM CDT [facility] CALCIUM S/P/B 9.1 8.5 - 10.1 MG/DL 05/28/2024 6:07 AM CDT [facility] ANION GAP 4.9(L) 5 - 15 MMOL/L 05/28/2024 6:07 AM CDT [facility] BUN CREATININE RATIO 8.2 6 - 26 05/28/2024 6:07 AM CDT [facility] GFR ESTIMATE >90 >90 ML/MIN/1.7 3 M2 05/28/2024 6:07 AM CDT [facility] Comment: NOTE: eGFR is not calculated for patients <18 years of age. This is an estimated GFR calculation using the new CKD EPI creatinine equation without race and so does not require a correction factor for race. This estimated GFR should not be used for calculating drug doses. 05/28/2024 5:14 AM CDT us Sonya Cantrell DO LABORATORY Final Res ult [facility] [address] [place] [address], [place] [phone] * (ABNORMAL) CBC W/DIFF AUTOMATED (05/27/2024 5:25 AM CDT) WBC 4.54 4.5 - 11.0 x10'3/uL 05/27/2024 6:31 AM CDT [facility] RBC 3.32(L) 4.20 - 5.40 x10'6/uL 05/27/2024 6:31 AM CDT [facility] HGB 10.9(L) 12.0 - 16.0 G/DL 05/27/2024 6:31 AM CDT [facility] HCT 35.1(L) 38.0 - 48.0 % 05/27/2024 6:31 AM CDT [facility] MCV 105.7(H) 81.0 - 99.0 FL 05/27/2024 6:31 AM CDT [facility] MCH 32.8(H) 27.0 - 31.0 PG 05/27/2024 6:31 AM CDT [facility] MCHC 31.1(L) 32.0 - 36.0 G/DL 05/27/2024 6:31 AM CDT [facility] RDW 14.3 11.5 - 14.5 % 05/27/2024 6:31 AM CDT [facility] PLT 192 130 - 400 x10'3/uL 05/27/2024 6:31 AM CDT [facility] MPV 10.2 9.3 - 12.2 FL 05/27/2024 6:31 AM CDT [facility] DIFFERENTIAL TYPE AUTOMATED DIFFERENTIAL 05/27/2024 6:31 AM CDT [facility] NEUTROPHILS % 53.1 % 05/27/2024 6:31 AM CDT [facility] LYMPHOCYTES % 32.2 % 05/27/2024 6:31 AM CDT [facility] MONOCYTES % 11.2 % 05/27/2024 6:31 AM CDT [facility] EOSINOPHILS 2.9 % 05/27/2024 6:31 AM CDT [facility] BASOPHILS 0.4 % 05/27/2024 6:31 AM CDT [facility] IMMATURE GRANS % 0.2 % 05/27/20 6:31 AM CDT [facility] ABS. NEUTROPHILS 2.41 1.80 - 7.70 x10'3/uL 05/27/2024 6:31 AM CDT [facility] ABS. LYMPHOCYTES 1.46 1.00 - 4.80 x10'3/uL 05/27/2024 6:31 AM CDT [facility] ABS. MONOCYTES 0.51 0.24 - 0.86 x10'3/uL 05/27/2024 6:31 AM CDT [facility] ABS. EOSINOPHILS 0.13 0.04 - 0.36 x10'3/uL 05/27/2024 6:31 AM CDT [facility] ABS. BASOPHILS 0.02 0.01 - 0.08 x10'3/uL 05/27/2024 6:31 AM CDT [facility] ABS. IMMATURE GRANULOCYTES 0.01 0.00 - 0.49 x10'3/uL 05/27/2024 6:31 AM CDT [facility] RBC MORPHOLOGY SLIDE REVIEWED 2023 6:31 AM CDT [facility] MACRO 1+ 05/27/2024 6:31 AM CDT [facility] PLT EST. ADEQUATE 05/27/2024 6:31 AM CDT [facility] 05/27/2024 5:25 AM CDT Sonya Cantrell DO LABORATORY Final Res ult [facility] [address] [place] [address], [place] [phone] * (ABNORMAL) BASIC METABOLIC PANEL (05/27/2024 5:25 AM CDT) GLUCOSE 86 70 - 99 MG/DL 05/27/2024 6:10 AM CDT [facility] BUN 4(L) 7 - 18 MG/DL 05/27/2024 6:10 AM CDT [facility] CREATININE S/P/B 0.52(L) 0.55 - 1.02 MG/DL 05/27/2024 6:10 AM CDT [facility] SODIUM S/P/B 140 136 - 145 MMOL/L 05/27/2024 6:10 AM CDT [facility] POTASSIUM S/P/B 3.6 3.5 - 5.1 MMOL/L 05/27/2024 6:10 AM CDT [facility] CHLORIDE S/P/B 115(H) 100 - 108 MMOL/L 05/27/2024 6:10 AM CDT [facility] CO2 19.5(L) 21 - 32 MMOL/L 05/27/2024 6:10 AM CDT [facility] CALCIUM S/P/B 8.9 8.5 - 10.1 MG/DL 05/27/2024 6:10 AM CDT [facility] ANION GAP 5.5 5 - 15 MMOL/L 05/27/2024 6:10 AM CDT [facility] BUN CREATININE RATIO 7.6 6 - 26 05/27/2024 6:10 AM T [facility] GFR ESTIMATE >90 >90 ML/MIN/1.7 3 M2 05/27/2024 6:10 AM T [facility] Comment: NOTE: eGFR is not calculated for patients <18 years of age. This is an estimated GFR calculation using the new CKD EPI creatinine equation without race and so does not require a correction factor for race. This estimated GFR should not be used for calculating drug doses. 05/27/2024 5:25 AM CDT us Sonya Cantrell DO LABORATORY Final Res ult [facility] [address] [place] [address], [place] [phone] * MAGNESIUM (05/26/2024 5:54 AM CDT) [facility] MAGNESIUM 2.2 1.8 - 2.4 MG/DL 05/26/2024 7:36 AM CDT [facility] 05/26/2024 5:54 AM CDT Sonya Cantrell DO LABORATORY Final Res ult [facility] [address] [place] [id number], [place] [phone] * (ABNORMAL) BASIC METABOLIC PANEL (05/26/2024 5:54 AM CDT) [facility] GLUCOSE 91 70 - 99 MG/DL 05/26/2024 6:35 AM CDT [facility] BUN 6(L) 7 - 18 MG/DL 05/26/2024 6:35 AM CDT [facility] CREATININE S/P/B 0.62 0.55 - 1.02 MG/DL 05/26/2024 6:35 AM CDT [facility] SODIUM S/P/B 138 136 - 145 MMOL/L 05/26/2024 6:35 AM CDT [facility] POTASSIUM S/P/B 3.3(L) 3.5 - 5.1 MMOL/L 05/26/2024 6:35 AM CDT [facility] CHLORIDE S/P/B 110(H) 100 - 108 MMOL/L 05/26/2024 6:35 AM CDT [facility] CO2 21.2 21 - 32 MMOL/L 05/26/2024 6:35 AM CDT [facility] CALCIUM S/P/B 9.3 8.5 - 10.1 MG/DL 05/26/2024 6:35 AM CDT [facility] ANION GAP 6.8 5 - 15 MMOL/L 05/26/2024 6:35 AM CDT [facility] BUN CREATININE RATIO 9.7 6 - 26 05/26/2024 6:35 AM CDT [facility] GFR ESTIMATE >90 >90 ML/MIN/1.7 3 M2 05/26/2024 6:35 AM CDT [facility] Comment: NOTE: eGFR is not calculated for patients <18 years of age. This is an estimated GFR calculation using the new CKD EPI creatinine equation without race and so does not require a correction factor for race. This estimated GFR should not be used for calculating drug doses. 05/26/2024 5:54 AM CDT Sonya Cantrell DO LABORATORY Final Res ult [facility] [address] [place] [address], * (ABNORMAL) CBC W/DIFF AUTOMATED (05/26/2024 5:54 AM CDT) WBC 6.56 4.5 - 11.0 x10'3/uL 05/26/2024 6:21 AM CDT [facility] RBC 3.45(L) 4.20 - 5.40 x10'6/uL 05/26/2024 6:21 AM CDT [facility] HGB 11.5(L) 12.0 - 16.0 G/DL 05/26/2024 6:21 AM CDT [facility] HCT 34.7(L) 38.0 - 48.0 % 05/26/2024 6:21 AM CDT [facility] MCV 100.6(H) 81.0 - 99.0 FL 05/26/2024 6:21 AM CDT [facility] MCH 33.3(H) 27.0 - 31.0 PG 05/26/2024 6:21 AM CDT [facility] MCHC 33.1 32.0 - 36.0 G/DL 05/26/2024 6:21 AM CDT [facility] RDW 14.3 11.5 - 14.5 % 05/26/2024 6:21 AM CDT [facility] PLT 195 130 - 400 x10'3/uL 05/26/2024 6:21 AM CDT [facility] MPV 10.6 9.3 - 12.2 FL 05/26/2024 6:21 AM CDT [facility] DIFFERENTIAL TYPE AUTOMATED DIFFERENTIAL 05/26/2024 6:21 AM CDT [facility] NEUTROPHILS % 61.4 % 05/26/2024 6:21 AM CDT [facility] LYMPHOCYTES % 25.5 % 05/26/2024 6:21 AM CDT [facility] MONOCYTES % 9.6 % 05/26/2024 6:21 AM CDT [facility] EOSINOPHILS 2.7 % 05/26/2024 6:21 AM CDT [facility] BASOPHILS 0.6 % 05/26/2024 6:21 AM CDT [facility] IMMATURE GRANS % 0.2 % 05/26/20 6:21 AM CDT [facility] ABS. NEUTROPHILS 4.03 1.80 - 7.70 x10'3/uL 05/26/2024 6:21 AM CDT [facility] ABS. LYMPHOCYTES 1.67 1.00 - 4.80 x10'3/uL 05/26/2024 6:21 AM CDT [facility] ABS. MONOCYTES 0.63 0.24 - 0.86 x10'3/uL 05/26/2024 6:21 AM CDT [facility] ABS. EOSINOPHILS 0.18 0.04 - 0.36 x10'3/uL 05/26/2024 6:21 AM CDT [facility] ABS. BASOPHILS 0.04 0.01 - 0.08 x10'3/uL 05/26/2024 6:21 AM CDT [facility] ABS. IMMATURE GRANULOCYTES 0.01 0.00 - 0.49 x10'3/uL 05/26/2024 6:21 AM CDT [facility] 05/26/2024 5:54 AM CDT Sonya Cantrell DO LABORATORY Final Res ult [facility] [address] [place] [id number], * (ABNORMAL) BASIC METABOLIC PANEL (05/25/2024 6:10 AM CDT) GLUCOSE 128(H) 70 - 99 MG/DL 05/25/2024 6:55 AM CDT [facility] BUN 14 7 - 18 MG/DL 05/25/2024 6:55 AM CDT [facility] CREATININE S/P/B 0.59 0.55 - 1.02 MG/DL 05/25/2024 6:55 AM CDT [facility] SODIUM S/P/B 140 136 - 145 MMOL/L 05/25/2024 6:55 AM CDT [facility] POTASSIUM S/P/B 3.3(L) 3.5 - 5.1 MMOL/L 05/25/2024 6:55 AM CDT [facility] CHLORIDE S/P/B 110(H) 100 - 108 MMOL/L 05/25/2024 6:55 AM CDT [facility] CO2 25.5 21 - 32 MMOL/L 05/25/2024 6:55 AM CDT [facility] CALCIUM S/P/B 8.9 8.5 - 10.1 MG/DL 05/25/2024 6:55 AM CDT [facility] ANION GAP 4.5(L) 5 - 15 MMOL/L 05/25/2024 6:55 AM CDT [facility] BUN CREATININE RATIO 23.6 6 - 26 05/25/2024 6:55 AM CDT [facility] GFR ESTIMATE >90 >90 ML/MIN/1.7 3 M2 05/25/2024 6:55 AM CDT [facility] Comment: NOTE: eGFR is not calculated for patients <18 years of age. This is an estimated GFR calculation using the new CKD EPI creatinine equation without race and so does not require a correction factor for race. This estimated GFR should not be used for calculating drug doses. 05/25/2024 6:10 AM CDT Sonya Cantrell DO LABORATORY Final Res ult [facility] [address] [place] [address], [place] [phone] * (ABNORMAL) CBC W/DIFF AUTOMATED (05/25/2024 6:10 AM CDT) WBC 8.51 4.5 - 11.0 x10'3/uL 05/25/2024 6:37 AM CDT [facility] RBC 3.45(L) 4.20 - 5.40 x10'6/uL 05/25/2024 6:37 AM CDT [facility] HGB 11.5(L) 12.0 - 16.0 G/DL 05/25/2024 6:37 AM CDT [facility] HCT 35.4(L) 38.0 - 48.0 % 05/25/2024 6:37 AM CDT [facility] MCV 102.6(H) 81.0 - 99.0 FL 05/25/2024 6:37 AM CDT [facility] MCH 33.3(H) 27.0 - 31.0 PG 05/25/2024 6:37 AM CDT [facility] MCHC 32.5 32.0 - 36.0 G/DL 05/25/2024 6:37 AM CDT [facility] RDW 15.0(H) 11.5 - 14.5 % 05/25/2024 6:37 AM CDT [facility] PLT 186 130 - 400 x10'3/uL 05/25/2024 6:37 AM CDT [facility] MPV 10.4 9.3 - 12.2 FL 05/25/2024 6:37 AM CDT [facility] DIFFERENTIAL TYPE AUTOMATED DIFFERENTIAL 05/25/2024 6:37 AM CDT [facility] NEUTROPHILS % 69.7 % 05/25/2024 6:37 AM CDT [facility] LYMPHOCYTES % 17.3 % 05/25/2024 6:37 AM CDT [facility] MONOCYTES % 10.9 % 05/25/2024 6:37 AM CDT [facility] EOSINOPHILS 1.5 % 05/25/2024 6:37 AM CDT [facility] BASOPHILS 0.2 % 05/25/2024 6:37 AM CDT [facility] IMMATURE GRANS % 0.4 % 05/25/20 6:37 AM CDT [facility] ABS. NEUTROPHILS 5.93 1.80 - 7.70 x10'3/uL 05/25/2024 6:37 AM CDT [facility] ABS. LYMPHOCYTES 1.47 1.00 - 4.80 x10'3/uL 05/25/2024 6:37 AM CDT [facility] ABS. MONOCYTES 0.93(H) 0.24 - 0.86 x10'3/uL 05/25/2024 6:37 AM CDT [facility] ABS. EOSINOPHILS 0.13 0.04 - 0.36 x10'3/uL 05/25/2024 6:37 AM CDT [facility] ABS. BASOPHILS 0.02 0.01 - 0.08 x10'3/uL 05/25/2024 6:37 AM CDT [facility] ABS. IMMATURE GRANULOCYTES 0.03 0.00 - 0.49 x10'3/uL 05/25/2024 6:37 AM CDT [facility] 05/25/2024 6:10 AM CDT Sonya Cantrell DO LABORATORY Final Res ult [facility] [address] [place] [address], * MAGNESIUM (05/24/2024 6:26 AM CDT) MAGNESIUM 2.1 1.8 - 2.4 MG/DL 05/24/2024 7:01 AM CDT [facility] 05/24/2024 6:26 AM CDT us Lian Sauer MD LABORATORY Final Resul t [facility] [address] [place] [address], * (ABNORMAL) BASIC METABOLIC PANEL (05/24/2024 6:26 AM CDT) [facility] GLUCOSE 96 70 - 99 MG/DL 05/24/2024 7:01 AM CDT [facility] BUN 26(H) 7 - 18 MG/DL 05/24/2024 7:01 AM CDT [facility] CREATININE S/P/B 0.62 0.55 - 1.02 MG/DL 05/24/2024 7:01 AM CDT [facility] SODIUM S/P/B 143 136 - 145 MMOL/L 05/24/2024 7:01 AM CDT [facility] POTASSIUM S/P/B 3.7 3.5 - 5.1 MMOL/L 05/24/2024 7:01 AM CDT [facility] CHLORIDE S/P/B 114(H) 100 - 108 MMOL/L 05/24/2024 7:01 AM CDT [facility] CO2 20.8(L) 21 - 32 MMOL/L 05/24/2024 7:01 AM T [facility] CALCIUM S/P/B 9.0 8.5 - 10.1 MG/DL 05/24/2024 7:01 AM CDT [facility] ANION GAP 8.2 5 - 15 MMOL/L 05/24/2024 7:01 AM CDT [facility] BUN CREATININE RATIO 41.7(H) 6 - 26 05/24/2024 7:01 AM T [facility] GFR ESTIMATE >90 >90 ML/MIN/1.7 3 M2 05/24/2024 7:01 AM CDT [facility] Comment: NOTE: eGFR is not calculated for patients <18 years of age. This is an estimated GFR calculation using the new CKD EPI creatinine equation without race and so does not require a correction factor for race. This estimated GFR should not be used for calculating drug doses. 05/24/2024 6:26 AM CDT Lian Sauer MD LABORATORY Final Resul t [facility] [address] [place] [address], * (ABNORMAL) CBC W/DIFF AUTOMATED (05/24/2024 6:26 AM CDT) WBC 10.43 4.5 - 11.0 x10'3/uL 05/24/2024 6:56 AM CDT [facility] RBC 3.74(L) 4.20 - 5.40 x10'6/uL 05/24/2024 6:56 AM CDT [facility] HGB 12.1 12.0 - 16.0 G/DL 05/24/2024 6:56 AM CDT [facility] HCT 37.5(L) 38.0 - 48.0 % 05/24/2024 6:56 AM CDT [facility] MCV 100.3(H) 81.0 - 99.0 FL 05/24/2024 6:56 AM CDT [facility] MCH 32.4(H) 27.0 - 31.0 PG 05/24/2024 6:56 AM CDT [facility] MCHC 32.3 32.0 - 36.0 G/DL 05/24/2024 6:56 AM CDT [facility] RDW 15.3(H) 11.5 - 14.5 % 05/24/2024 6:56 AM CDT [facility] PLT 217 130 - 400 x10'3/uL 05/24/2024 6:56 AM CDT [facility] MPV 10.4 9.3 - 12.2 FL 05/24/2024 6:56 AM CDT [facility] DIFFERENTIAL TYPE AUTOMATED DIFFERENTIAL 05/24/2024 6:56 AM CDT [facility] NEUTROPHILS % 73.1 % 05/24/2024 6:56 AM CDT [facility] LYMPHOCYTES % 15.7 % 05/24/2024 6:56 AM T [facility] MONOCYTES % 10.5 % 05/24/2024 6:56 AM T [facility] EOSINOPHILS 0.0 % 05/24/2024 6:56 AM CDT [facility] BASOPHILS 0.2 % 05/24/2024 6:56 AM CDT [facility] IMMATURE GRANS % 0.5 % 05/24/20 6:56 AM T [facility] ABS. NEUTROPHILS 7.62 1.80 - 7.70 x10'3/uL 05/24/2024 6:56 AM CDT [facility] ABS. LYMPHOCYTES 1.64 1.00 - 4.80 x10'3/uL 05/24/2024 6:56 AM CDT [facility] ABS. MONOCYTES 1.10(H) 0.24 - 0.86 x10'3/uL 05/24/2024 6:56 AM T [facility] ABS. EOSINOPHILS 0.00(L) 0.04 - 0.36 x10'3/uL 05/24/2024 6:56 AM CDT [facility] ABS. BASOPHILS 0.02 0.01 - 0.08 x10'3/uL 05/24/2024 6:56 AM CDT [facility] ABS. IMMATURE GRANULOCYTES 0.05 0.00 - 0.49 x10'3/uL 05/24/2024 6:56 AM CDT [facility] 05/24/2024 6:26 AM CDT Lian Sauer MD LABORATORY Final Resul t [facility] [address] [place] [address], [place] [phone] * XR SMALL BOWEL (05/23/2024 2:06 PM [...] ?? COMPARISON: CT 05/23/2024 2:40 AM TECHNIQUE: Gasoline Power Shovel Operator image of the abdomen was obtained, oral contrast was administered by NG tube. Images of the abdomen were obtained 20, 40, 60, 90, 120, 180 minutes after administration. FINDINGS: Gasoline Power Shovel Operator image demonstrates moderate small bowel dilatation. NG [...] obstruction COMPARISON: CT 05/23/2024 2:40 AM TECHNIQUE: Gasoline Power Shovel Operator image of the abdomen was obtained, oral contrast wasadministered by NG tube. Images of the abdomen were obtained 20, 40, 60,90, 120, 180 minutes after administration. FINDINGS: Gasoline Power Shovel Operator image demonstrates moderate small bowel dilatation. NG [...] Given 05/23/2024 4:30 PM CDT 15 mg iomnlccug-pfttolro-svnzjhuzulu ([employer]) 0341-1592-688 mg/30mL suspension 5 mL, Oral, Every 6 [...] 0925 (Given - Provider: Rivera Brown, RTR) seovvjfgj-grllngsl-advrlzrlvkd ([employer]) 2179-3610-004 mg/30mL suspension 5 mL, Oral, Every 6 [...] documented as of this encounter Care Teams Excel Developer Relationship Specialty [place] [id number] [facility] [address] [place] [id number] PCP - General FAMILY PRACTICE 03/01/23 Perez Cervantes MD [address] [place] [address] RHEUMATOLOGY 09/02/23 Adriana Ma MD [address] [place] [address] Referring Physician ALLERGY 09/02/23 documented as of this encounter
--- OUTSIDE RECORDS SUMMARY | 2024-11-13 17:51 | XMS_ITS | Encounter Summary ---
Author Organization [facility] Address [address] [place] [address]. [place], [place] [id number] [place] [address] Care Team Providers Care Manager Printing Name Role Phone Dayanara Plaza MD Primary Care Provider [phone] Perez Cervantes MD Unavailable Adriana Ma MD Unavailable [phone] Encounter Details Date Type Department Care Team (Late st Contact Info) Description 06/02/2024 4:00 PM CDT Laboratory Only [facility] [place] [id number] [place] [phone] Dayanara Plaza MD [address] [place] [address]. [address] [place] [phone] Social History Tobacco Use Types Packs/Day [...] doctor or pharmacy? Never 05/23/2024 [facility] Utilities Answer Date Recorded In the [...] Recorded Patient Health Questionnaire-2 Score 0 04/03/2024 [facility] of Occupat ional Health - Occupational Stress [...] any time in the past 12 m [facility], were you homeless or living in a [facility] (including now)? No 05/23/2024 Education Answer Date Recorded What is the highest level of school you have completed or the highest degree you have received? Master's degree (e.g., MA, MS, Howard, MEd, CHEESE SPECIALIST, KEKE) 12/21/2018 Comments No Sex and [...] st Contact Info) Description 11/14/2024 8:00 AM MEDIA MARKETING COORDINATOR Office Visit [facility] - [facility] [address] [facility], [address] [place] [phone] Montserrat Oliver NP 3 [facility] [address] [place] [address] 12/06/2024 9:30 AM MEDIA MARKETING COORDINATOR Appointment [facility] Open MRI [address] [place] [address] [place] [address] [place] [phone] 03/02/2025 3:20 PM CDT Office Visit [facility] Family & Internal Medicine - [address] [phone] [place] [address] [place] [phone] documented as of this encounter Goals Goal Patient Goal Type Associated Problems Recent Progress Patient-Stated? Author Family - family caregiver with be involved in care transitions and discharge planning Lifestyle No Nessa Pan, REPROGRAPHICS ASSOCIATE documented as of this encounter Procedures Procedure [...] as of this encounter Care Teams Manager Printing Relationship Specialty [place] [address] [address] [place] [address] PCP - General FAMILY PRACTICE 03/01/23 Perez Cervantes MD [address] [phone] RHEUMATOLOGY 09/02/23 Adriana Ma MD [address] [place] [address] Referring Physician ALLERGY 09/02/23 documented as of this encounter
--- OUTSIDE RECORDS SUMMARY | 2024-11-13 17:51 | XMS_ITS | Clinical Summary ---
Author Organization [facility] Address [address] [place] [address]. [place] [address] [place] [address] Care Team Providers Care Line Tender Name Role Phone Dayanara Plaza MD Primary Care Provider [phone] Perez Cervantes MD Unavailable Adriana Ma MD Unavailable [phone] Allergies Active Allergy Reactions Criticality Noted Date [...] Date Diagnosed Date SBO (small bowel obstruction) ([facility]/HCC [facility]) 05/23/2024 Vasovagal syncope 2023 Anxiety 2023 Iliac crest bone pain 11/04/2021 Plantar fasciitis of right foot 07/16/2021 Seasonal allergies 05/02/2021 Pharyngoesophageal dysphagia 02/06/2021 Overview (02/06/2021): Added automatically from request for surgery [id number] Encounter for screening colonoscopy 02/06/2021 Overview (02/06/2021): Added automatically from request for surgery [id number] BMI 24.0-24.9, adult 05/01/2019 DURAN (generalized anxiety disorder) 11/30/2018 Assessment & Plan (11/30/2018 4:47 PM BID MANAGER): Discussed starting a SSRI or SNRI and very anxious about the side effects. Discussed buspar and is willing to try that. Would also like to try talking with a therapist Polyarthritis 12/19/2013 Overview (11/30/2018): Annotation - [id number]: followed by Perez Cervantes MD at [facility] Rheumatology Esophageal reflux 11/12/2012 Insomnia 11/05/2012 Arthritis [...] Department Care Team Description 11/10/2024 3:49 PM BID MANAGER - 11/10/2024 11:59 PM BID MANAGER Hospital Encounter [facility] [address] [place] [address] Dayanara Plaza MD Discharge Disposition: Home or Self Care (Routine Discharge) 11/10/2024 3:10 PM BID MANAGER Laboratory Only [facility] Family & Internal Medicine [address] [address] Dayanara Plaza MD 11/10/2024 2:20 PM BID MANAGER Office Visit [facility] Family & Internal Medicine - [place] [address] [place] [address] Dayanara Plaza MD Follow Up (ER follow. [facility]) 11/10/2024 MyChart Message Enc [facility] Medical [facility] Family & Internal Medicine [facility] [address] [place] [address] Dayanara Plaza MD Need meds for MRI 11/10/2024 Travel 11/06/2024 Scan HEALTH INFO SRVCS Scanned, [facility] Image (SCAN); ECG (SCAN) 11/06/2024 Travel 08/30/2024 2:44 PM CDT - 08/30/2024 11:59 PM CDT Hospital Encounter [facility] [place] [address] Riley Thompson, DPHay Gastelum MD Discharge Disposition: Home or Self Care (Routine Discharge) 08/30/2024 Travel 08/30/2024 Orders Only [facility] [place] [address] Hay Zavaleta MD 08/29/2024 Scan [employer] SRVCS Scanned, [facility] 08/21/2024 3:09 PM CDT - 08/21/2024 11:59 PM CDT Hospital [place]counter [place] [address] Lian Sauer MD Discharge Disposition: Home or [...] MCG/ 0.5 ML DOSE 06/28/2021,01/03/2021,12/06/2020 [employer] COVID-19 (GEAR SHAPER SET UP OPERATOR ADEN NATA), MRNA, LNP-S, PF, 50 MCG/ [...] doctor or pharmacy? Never 05/23/2024 [facility] Utilities Answer Date Recorded In the past 12 months has [facility] [place] [employer], or water [employer] threatened to shut off services in your [...] Questionnaire-2 Score 0 04/03/2024 [facility] of Occupat [facility] - Occupational Stress Questionnaire Answer [...] any time in the past 12 m [facility], were you homeless or living in a care home (including now)? No 05/23/2024 Education Answer Date Recorded What is the highest level of school you have completed or the highest degree you have received? Master's degree (e.g., MA, MS, Howard, MEd, FOOD PRODUCTION MANAGER, KEKE) 12/21/2018 Comments No Sex and [...] Comments Blood Pressure 93/61 11/10/2024 2:17 PM BID MANAGER Pulse 72 11/10/2024 2:17 PM BID MANAGER Temperature 37.2 ??C (99 ??F) 11/10/2024 2:17 PM BID MANAGER Respiratory Rate 18 11/10/2024 2:17 PM BID MANAGER Oxygen Saturation 98% 11/10/2024 2:17 PM BID MANAGER Inhaled Oxygen Concentration - - Weight 75.8 kg (167 lb 3.2 oz) 11/10/2024 2:17 P M BID MANAGER Height 172.7 cm (5' 8 ) 11/10/2024 2:17 PM BID MANAGER Body Mass Index 25.42 11/10/2024 2:17 PM BID MANAGER Plan of Treatment Upcoming Encounters Date Type Department Care Team (Late st Contact Info) Description 11/14/2024 8:00 AM BID MANAGER Office Visit [facility] Medical Group Multispecialty Care - [facility] [address] [facility], [address] [place] [phone] Montserrat Oliver NP 3 [facility] [address] [place] [address] 12/06/2024 9:30 AM BID MANAGER Appointment [facility] Open MRI [address] [place] [address] [place] [address] [address] [place] [address] 03/02/2025 3:20 PM CDT Office Visit [facility] Medical Group Family & Internal Medicine - [place] [address] [place] [address] [place] [address] [address] [place] [address] Health Maintenance Due Date Last [...] and discharge planning Lifestyle No Nessa Pan, BLOWER FEEDER DYED RAW STOCK Procedures Procedure Name Priority Date/Time Associated Diagnosis Comments VENIPUNC ARM DRAW Routine 11/10/2024 2:5 9 PM BID MANAGER Syncope, unspecified syncope type BASIC METABOLIC PANEL Routine 11/10/2024 2:58 PM BID MANAGER Syncope, unspecified syncope type CBC W/DIFF AUTOMATED Routine 11/10/2024 2:58 PM BID MANAGER Syncope, unspecified syncope type ECG GENERIC (SCAN ORDER) 11/06/2024 IMAGE GENERIC 11/06/2024 IMAGE GENERIC 11/06/2024 EMG Routine 08/30/2024 2:44 PM CDT Tarsal tunnel syndrome, right lower limb CT ABD+PEL W CON Routine 08/21/2024 3:37 PM CDT Abdominal pain MG SCREENING W KRISTEN VICTORIANO DIGI Routine 01/06/2023 3:08 PM BID MANAGER Encounter for screening mammogram for malignant neoplasm of breast COLONOSCOPY Routine 09/01/2010 12:00 AM CDT from Last 3 Months or Most Recently Relevant to Health Maintenance Results * (ABNORMAL) BASIC METABOLIC PANEL (11/10/2024 2:58 PM BID MANAGER) GLUCOSE 91 70 - 99 MG/DL 11/10/2024 4:[address] [facility] BUN 12 7 - 18 MG/DL 11/10/2024 4:[address] [facility] CREATININE S/P/B 0.87 0.55 - 1.02 MG/DL 11/10/2024 4:[address] [facility] SODIUM S/P/B 143 136 - 145 MMOL/L 11/10/2024 4:[address] [facility] POTASSIUM S/P/B 4.7 3.5 - 5.1 MMOL/L 11/10/2024 4:[address] [facility] CHLORIDE S/P/B 105 100 - 108 MMOL/L 11/10/2024 4:10 PM BID MANAGER [facility] CO2 29.6 21 - 32 MMOL/L 11/10/2024 4:[address] [facility] CALCIUM S/P/B 9.8 8.5 - 10.1 MG/DL 11/10/2024 4:[address] [facility] ANION GAP 8.4 5 - 15 MMOL/L 11/10/2024 4:[address] [facility] BUN CREATININE RATIO 13.8 6 - 26 11/10/2024 4:[address] [facility] GFR ESTIMATE 76(L) >90 ML/MIN/1.7 3 M2 11/10/2024 4:[address] [facility] Comment: NOTE: eGFR is not calculated for patients <18 years of age. This is an estimated GFR calculation using the new CKD EPI creatinine equation without race and so does not require a correction factor for race. This estimated GFR should not be used for calculating drug doses. 11/10/2024 2:58 PM BID MANAGER us Dayanara Plaza MD LABORATORY Final Result [facility] [address] [place] [address], * (ABNORMAL) CBC W/DIFF AUTOMATED (11/10/2024 2:58 PM BID MANAGER) WBC 5.06 4.4 - 11.0 x10'3/uL 11/10/2024 4:[address] [facility] RBC 3.58(L) 4.50 - 5.10 x10'6/uL 11/10/2024 4:[address] [facility] HGB 11.5(L) 12.3 - 15.3 G/DL 11/10/2024 4:[address] [facility] HCT 34.4(L) 35.9 - 44.6 % 11/10/2024 4:[address] [facility] MCV 96.1(H) 80.0 - 96.0 FL 11/10/2024 4:[address] [facility] MCH 32.1(H) 25.3 - 30.9 PG 11/10/2024 4:[address] [facility] MCHC 33.4 31.0 - 34.1 G/DL 11/10/2024 4:[address] [facility] RDW 14.1 12.4 - 15.1 % 11/10/2024 4:[address] [facility] PLT 281 151 - 353 x10'3/uL 11/10/2024 4:[address] [facility] MPV 10.7 9.6 - 12.0 FL 11/10/2024 4:[address] [facility] SEG NEUTROPHILS 53 42 - 72 % 5:[address] [facility] LYMPHOCYTES 32 15.8 - 45.0 % 11/10/2024 5:[address] [facility] MONOCYTES 10 5.7 - 12.5 % 11/10/2024 5:[address] [facility] EOSINOPHILS 3 0 - 5.6 % 11/10/2024 5:[address] [facility] ATYP. LYMPHS 2 % 11/10/2024 5:[address] [facility] ABS. NEUTROPHILS 2.68 1.40 - 6.00 x10'3/uL 11/10/2024 5:[address] [facility] ABS. LYMPHOCYTES 1.72 0.80 - 4.70 x10'3/uL 11/10/2024 5:11 PM BID MANAGER [facility] PLT MORPH. NORMAL 11/10/2024 5:11 PM BID MANAGER [facility] RBC MORPHOLOGY NORMAL 11/10/2024 5:11 PM BID MANAGER [facility] WBC MORPHOLOGY NORMAL 11/10/2024 5:[address] [facility] 11/10/2024 2:58 PM BID MANAGER Dayanara Plaza MD LABORATORY Final Result [facility] [address] [place] [address], * ECG GENERIC (SCAN ORDER) (11/06/2024) 11/06/2024 [employer] [facility] Scanned SCANNING Final Resu lt * IMAGE GENERIC (11/06/2024) Only the most recent of2 resultswithin the time period is included. Anatomical Region Laterality Modality Other 11/06/[address] [facility] Scanned SCANNING Final Resu lt * EMG (08/30/2024 2:44 PM CDT) 08/30/2024 2:44 PM CDT Narrative ESCRIPTION - 09/04/2024 12:49 PM CDT Patient Name: HANS PASCUAL Date of : 1965 Account: [id number] Facility: [facility] Location: [facility] Date of Service: 08/30/2024 EMG COMPLAINT: [...] ? HAY ZAVALETA D: ??08/30/2024 03:04 PM ??#[id number] T: ??08/30/2024 04:06 PM ??/SKY us Riley [...] 2:39 AM Narrative 08/22/2024 3:42 AM CDT [address] [address] INDICATION: Postoperative abdominal pain COMPARISON: CT abdomen/pelvis, [...] Procedure Note Rodrigo Crum MD - 08/22/2024 [facility] [address] [place], [place] [address] INDICATION: Postoperative abdominal pain COMPARISON: CT abdomen/pelvis, [...] W KRISTEN VICTORIANO DIGI (01/06/2023 3:08 PM BID MANAGER) Anatomical Region Laterality Modality Breast Bilateral Mammography 01/06/2023 4:06 PM BID MANAGER Narrative 01/06/2023 4:09 PM BID MANAGER Examination: Screening bilateral mammogram with 3-D tomosynthesis [...] Recently Relevant to Health Maintenance Insurance [employer] [place] [id number] Advance Directives * Full Code (Latest Code Status on File) Date Activated Date Inactivated Comments 05/23/2024 7:57 AM 05/30/2024 12:23 PM Care Teams Line Tender Relationship Specialty [place] [address] [facility] [place] [address] PCP - General FAMILY PRACTICE 03/01/23 Perez Cervantes MD [address] [place] [phone] RHEUMATOLOGY 09/02/23 Adriana Ma MD [address] [place] [address] Referring Physician ALLERGY 09/02/23
--- OUTSIDE RECORDS SUMMARY | 2024-11-13 17:51 | XMS_ITS | Encounter Summary ---
Author Organization [facility] Address [address] [place] [address]. [place] [address] [place] [address] Care Team Providers Care Assistant Terminal Manager Name Role Phone Dayanara Plaza MD Primary Care Provider [phone] Perez Cervantes MD Unavailable Adriana Ma MD Unavailable [phone] Encounter Details Date Type Department Care Team (Late st Contact Info) Description 07/04/2024 Orders Only [facility] Family & Internal Medicine - [place] [address] [place] [address] [place] [id number] [place] [address]. [address] [place] [address] Social History Tobacco Use Types Packs/Day [...] from your doctor or pharmacy? Never 05/23/2024 [facility] Utilities Answer Date Recorded In [...] Recorded Patient Health Questionnaire-2 Score 0 04/03/2024 [facility] of Occupat ional [facility] - Occupational Stress Questionnaire Answer [...] Master's degree (e.g., MA, MS, Howard, MEd, CATERER HELPER, KEKE) 12/21/2018 Comments No Sex and [...] st Contact Info) Description 11/14/2024 8:00 AM RADIATION PROTECTION SPECIALIST Office Visit [facility] Multispecialty Care - [facility] [address] [facility], [address] [place] [address] Montserrat Oliver NP 3 [facility] [address] [place] [address] 12/06/2024 9:30 AM RADIATION PROTECTION SPECIALIST Appointment [facility] MRI [address] [place] [address] [place] [address] [facility] [address] [place] [phone] 03/02/2025 3:20 PM CDT Office Visit [facility] Family & Internal Medicine - [address] [address] [place] [address] [facility] [place] [address] documented as of this encounter Goals Goal Patient Goal Type Associated Problems Recent Progress Patient-Stated? Author Family - family caregiver with be involved in care transitions and discharge planning Lifestyle No Nessa Pan, METAL CASTER documented as of this encounter Procedures Procedure Name Priority Date/Time Associated Diagnosis Comments TSH W/REFLEX FT3 AND FT4 Routine 07/04/2024 7:41 AM CDT LIPID PANEL Routine 07/04/2024 7:41 AM CDT documented in this encounter Results * (ABNORMAL) LIPID PANEL (07/04/2024 7:41 AM CDT) CHOLESTEROL 187 <200 mg/dL [facility] HDL 57 > OR = 50 mg/dL [facility] TRIGLYCERIDES 102 <150 mg/dL [facility] LDL (CALCULATED) 110(H) mg/dL (calc) [facility] Comment: Reference range: <100 Desirable range <100 mg/dL for primary prevention; ?? <70 mg/dL for patients with CHD or diabetic patients with > or = 2 CHD risk factors. LDL-C is now calculated using the Lynne calculation, which is a validated novel method providing better accuracy than the Friedewald equation in the estimation of LDL-C. Tor SS et al. JACKELYN. 2013;310(19): 9349-9566 (http://education.[employer]Crow[employer]./faq/WDA253) CHOL/HDL RATIO 3.3 <5.0 (calc) [facility] NON HDL CHOLESTEROL 130(H) <130 mg/dL (calc) [facility] Comment: For patients with diabetes plus 1 major ASCVD risk factor, treating to a non-HDL-C goal of <100 mg/dL (LDL-C of <70 mg/dL) is considered a therapeutic option. 07/04/2024 7:41 AM CDT 07/04/2024 7:42 AM CDT Narrative [facility] - [place] ORDERS - 07/05/2024 6:39 AM CDT FASTING:YES FASTING: YES Resulting Agency Comment Performing Organization Information: ?Site ID: [place] ?Name: [facility] ?Address: [address] [place] [address] ?Director: Adry Berger MD us Dayanara Plaza MD LABORATORY Final Result [facility] [place] [facility] [address] [place] [address], * TSH W/REFLEX FT3 AND FT4 (07/04/2024 7:41 AM CDT) TSH 1.14 0.40 - 4.50 mIU/L [facility] Comment: Our records indicate that you have ordered a client custom reflex order code. Only the initial test was performed because we do not have a client custom reflex testing authorization request form on file for you. Please contact a client development consultant if you would like additional testing done on this patient or contact your golf sales associate to obtain a client custom reflex testing authorization request form. 07/04/2024 7:41 AM CDT 07/04/2024 7:42 AM CDT Narrative [facility] - [place]DERS - 07/05/2024 6:39 AM CDT FASTING:YES FASTING: YES Resulting Agency Comment Performing Organization Information: ?Site ID: [place] ?Name: [facility] ?Address: [address] [place] [address] ?Director: Adry Berger MD us Dayanara Plaza MD LABORATORY Final Result [facility] - [place] ORDERS [facility] [address] documented in this encounter Visit Diagnoses Not on filedocumented in this encounter Additional Health Concerns Assessment Noted Time PHQ-9 Depression Total Score: 0 04/03/20 24 10:56 AM CDT documented as of this encounter Care Teams Assistant Terminal Manager Relationship Specialty Start [place] [address] [facility] [address] [place] [address] PCP - General FAMILY PRACTICE 03/01/23 Perez Cervantes MD [address] [place] [phone] RHEUMATOLOGY 09/02/23 Adriana Ma MD [address] [place] [address] Referring Physician ALLERGY 09/02/23 documented as of this encounter
--- OUTSIDE RECORDS SUMMARY | 2024-11-13 17:51 | XMS_ITS | Encounter Summary ---
Author Organization [facility] Address [address] [place] [address]. [place] [address] [place] [address] Care Team Providers Care Hat Ironer Name Role Phone Dayanara Plaza MD Primary Care Provider [phone] Perez Cervantes MD Unavailable Adriana Ma MD Unavailable [phone] Encounter Details Date Type Department Care Team [...] from your doctor or pharmacy? Never 05/23/2024 [facility] Utilities Answer Date Recorded In [...] Recorded Patient Health Questionnaire-2 Score 0 04/03/2024 [facility] of Occupat ional Health - Occupational [...] any time in the past 12 m [facility], were you homeless or living in a chcf (including now)? No 05/23/2024 Education Answer Date Recorded What is the highest level of school you have completed or the highest degree you have received? Master's degree (e.g., MA, MS, Howard, MEd, CIRCULATION TENDER, KEKE) 12/21/2018 Comments No Sex and [...] Contact Info) Description 11/14/2024 8:00 AM SENIOR ADMINISTRATIVE SERVICES OFFICER Office Visit [facility] Multispecialty Care - [facility] [address] [facility], [address] [place] [address] Montserrat Oliver, MANAGER EMERGENCY [address] [facility] [address] [place] [address] 12/06/2024 9:30 AM SENIOR ADMINISTRATIVE SERVICES OFFICER Appointment [facility] Open MRI [address] [place] [address] [place] [address] [place] [phone] 03/02/2025 3:20 PM CDT Office Visit [facility] Family & Internal Medicine - [address] [address] [place] [address] [place] [phone] documented as of this encounter Goals Goal Patient Goal Type Associated Problems Recent Progress Patient-Stated? Author Family - family caregiver with be involved in care transitions and discharge planning Lifestyle No Nessa Pan, ASSISTANT OFFSET PRESS OPERATOR documented as of this encounter Visit Diagnoses Not on filedocumented in this encounter Additional Health Concerns Assessment Noted Time PHQ-9 Depression Total Score: 0 04/03/20 10:56 AM CDT documented as of this encounter Care Teams Hat Ironer Relationship Specialty Start [place] [address] [place] [phone] PCP - General FAMILY PRACTICE 03/01/23 Perez Cervantes MD [address] [place] [address] RHEUMATOLOGY 09/02/23 Adriana Ma MD [address] [place] [phone] Referring Physician ALLERGY 09/02/23 documented as of this encounter"
--- OUTSIDE RECORDS SUMMARY | 2024-11-13 17:51 | XMS_ITS | Encounter Summary ---
Author Organization [facility] Address [address] [place] [address]. [place] [address] [place] [address] Care Team Providers Care Cryptologic Supervisor Name Role Phone Dayanara Plaza MD Primary Care Provider Perez Cervantes MD Unavailable Adriana Ma MD Unavailable [phone] Encounter Details Date Type Department Care Team [...] from your doctor or pharmacy? Never 05/23/2024 [facility] Utilities Answer Date Recorded In the [...] Recorded Patient Health Questionnaire-2 Score 0 04/03/2024 [facility] of Occupat ional Health - [...] time in the past 12 m [facility], were you homeless or living in a longterm (including now)? No 05/23/2024 Education Answer Date Recorded What is the highest level of school you have completed or the highest degree you have received? Master's degree (e.g., MA, MS, Howard, MEd, EQUIPMENT MAINTENANCE TECHNICIAN, KEKE) 12/21/2018 Comments No Sex and [...] st Contact Info) Description 11/14/2024 8:00 AM ANGER CONTROL COUNSELOR Office Visit [facility] Multispecialty Care - [facility] [address] [facility], [address] [place] [address] Montserrat Oliver, HOSPICE COORDINATOR 3 [facility] [address] [place] [address] 12/06/2024 9:30 AM ANGER CONTROL COUNSELOR Appointment [facility] Open MRI [address] [facility] [address] [place] [address] [place] [phone] 03/02/2025 3:20 PM CDT Office Visit [facility] Family & Internal Medicine - [address] [address] [place] [address] [place] [phone] documented as of this encounter Goals Goal Patient Goal Type Associated Problems Recent Progress Patient-Stated? Author Family - family caregiver with be involved in care transitions and discharge planning Lifestyle No Nessa Pan, INDEX CLERK documented as of this encounter Visit Diagnoses Not on filedocumented in this encounter Additional Health Concerns Assessment Noted Time PHQ-9 Depression Total Score: 0 04/03/20 10:56 AM CDT documented as of this encounter Care Teams Cryptologic Supervisor Relationship Specialty Start [place] [address] [place] [address] [phone] PCP - General FAMILY PRACTICE 03/01/23 Perez Cervantes MD [address] [place] [address] RHEUMATOLOGY 09/02/23 Adriana Ma MD [address] [place] [address] [id number] Referring Physician ALLERGY 09/02/23 documented as of this encounter
--- OUTSIDE RECORDS SUMMARY | 2024-11-13 17:51 | XMS_ITS | Encounter Summary ---
Author Organization [facility] Address [address] [place] [address]. [place] [address] [place] [address] Care Team Providers Care Violin Teacher Name Role Phone Dayanara Plaza MD Primary Care Provider [phone] Perez Cervantes MD Unavailable Adriana Ma MD Unavailable [phone] Reason for Visit * Auth/Cert Specialty Diagnoses / Procedures Referred By Contkayden t Referred To Contact Diagnoses SBO Procedures GENERAL Sydni Sarkar, DO 1 [place] [address] Phone: tel: fax: Referral ID Status Reason Start Date Expiration Date Visits Re quested Visits Authorized [id number] 1 1 Encounter Details Date Type Department Care Team (Late st Contact Info) Description 05/23/2024 2:56 PM CDT Anesthesia Event [facility] OR [address] [place], [place] [address] Damian Almaguer MD [address] [facility] [address] [address] Keron Al, [address] [place] [address] Anesthesia Record Procedure Summary Procedure Name Responsible [...] care under the direct supervision of the SCHOOL CAFETERIA COOK. SCHO[employer] CAFETERIA COOK remains present for continuous supervision of the [...] by Jasmine Last RN 05/25/24 143 by rIis Ellsworth RN Peripheral IV Placement Date: 08/08; [...] By: Capnography, Auscultation, Chest Rise; Placed By: SCHOOL CAFETERIA COOK; Extubation Assessment: Suctioned, Able to swallow, Moves all extremities strongly, Deep breathes w/equal chest movements, Atraumatic, Tolerated well; Removal Date: 05/23/24; Removal Time: 1602; Removal Person: SCHOOL CAFETERIA COOK; Removal Reason: End of Case 05/23/24 1505 [...] Fr.; End of Case 05/23/24 1510 by Cirstina Hunt RN 05/23/24 1605 by Cristina Hunt [...] from your doctor or pharmacy? Never 05/23/2024 [facility] Utilities Answer Date Recorded In the past 12 months has [facility] [employer], gas, oil, or water [employer] threatened to shut off services in your [...] Recorded Patient Health Questionnaire-2 Score 0 04/03/2024 [facility] Occupat ional [facility] [...] any time in the past 12 m [facility], were you homeless or living in a usp (including now)? No 05/23/2024 Education Answer Date Recorded What is the highest level of school you have completed or the highest degree you have received? Master's degree (e.g., MA, MS, Howadr, MEd, PLASTIC WELDING MACHINE OPERATOR, KEKE) 12/21/2018 Comments No Sex [...] Plantar fasciitis No date: RA (rheumatoid arthritis) ([facility] [place] [facility]) Past Surgical History: No date: CHOLECYSTECTOMY 03/17/2021: [...] st Contact Info) Description 11/14/2024 8:00 AM WOOD CRAFTSMAN Office Visit [facility] Mult[facility]pecialty Care - [facility] 3 [facility], [address] [place] [phone] Montserrat Oliver NP 3 [facility] [address] [place] [address] 12/06/2024 9:30 AM WOOD CRAFTSMAN Appointment [facility] MRI [address] [place] [address] [place] [address] [facility] [address] [place] [address] [phone] 03/02/2025 3:20 PM CDT Office Visit [facility] Family & Internal Medicine - [address] [address] [place] [address] [address] [place] [address] documented as of this encounter Goals Goal Patient Goal Type Associated Problems Recent Progress Patient-Stated? Author Family - family caregiver with be involved in care transitions and discharge planning Lifestyle No Nessa Pan, BLACKENER documented as of this encounter Visit Diagnoses [...] documented as of this encounter Care Teams Violin Teacher Relationship Specialty [place] [address] [facility]. [address] [place] [address] PCP - General FAMILY PRACTICE 03/01/23 Perez Cervantes MD [address] [place] [address] RHEUMATOLOGY 09/02/23 Adriana Ma MD [address] [place] [address] Referring Physician ALLERGY 09/02/23 documented as of this encounter
--- OUTSIDE RECORDS SUMMARY | 2024-11-13 17:51 | XMS_ITS | Encounter Summary ---
Author Organization [facility] Address [address] [place] [address]. [place] [address] [place] [address] Care Team Providers Care City Marshal Name Role Phone Dayanara Plaza MD Primary Care Provider [phone] Perez Cervantes MD Unavailable Adriana Ma MD Unavailable [phone] Encounter Details Date Type Department Care Team [...] doctor or pharmacy? Never 05/23/2024 [facility] Utilities Answer Date Recorded In the [...] time in the past 12 m [facility], were you homeless or living in a half-way (including now)? No 05/23/2024 Education Answer Date Recorded What is the highest level of school you have completed or the highest degree you have received? Master's degree (e.g., MA, MS, Howard, MEd, LEAD INVESTIGATOR, KEKE) 12/21/2018 Comments No Sex and [...] Contact Info) Description 11/14/2024 8:00 AM FINISH PATCHER Office Visit [facility] Mult[facility]pecialty Care - [facility] 3 [facility], [address] [place] [address] Montserrat Oliver, COMPLIANCE REPRESENTATIVE DEALER 3 [facility] [address] [place] [address] 12/06/2024 9:30 AM FINISH PATCHER Appointment [facility] Open MRI [address] [place] [address] [place] [address] [place] [address] [phone] 03/02/2025 3:20 PM CDT Office Visit [facility] Family & Internal Medicine - [address] [address] [place] [address] [place] [address] [phone] documented as of this encounter Goals Goal Patient Goal Type Associated Problems Recent Progress Patient-Stated? Author Family - family caregiver with be involved in care transitions and discharge planning Lifestyle No Nessa Pan, LEGAL BILLING SPECIALIST documented as of this encounter Visit Diagnoses Not on filedocumented in this encounter Additional Health Concerns Assessment Noted Time PHQ-9 Depression Total Score: 0 04/03/20 10:56 AM CDT documented as of this encounter Care Teams City Marshal Relationship Specialty [place] [address] [place] [phone] PCP - General FAMILY PRACTICE 03/01/23 Perez Cervantes MD [address] [place] [address] RHEUMATOLOGY 09/02/23 Adriana Ma MD [address] [place] [address] Referring Physician ALLERGY 09/02/23 documented as of this encounter
--- OUTSIDE RECORDS SUMMARY | 2024-11-13 17:51 | XMS_ITS | Encounter Summary ---
Author Organization [facility] Address [address] [place] [address]. [place] [address] [place] [address] Care Team Providers Care Fitter Tacker Name Role Phone Dayanara Plaza MD Primary Care Provider [phone] Perez Cervantes MD Unavailable Adriana Ma MD Unavailable [phone] Reason for Visit * Reason Onset Date Comments Follow Up Call 05/23/2024 SIA 05/23-05/30/24, TCM callback 05/31/24 Encounter Details Date Type Department Care Team (Latest Contact Info) Description 05/31/2024 [place] [address] Bonita Cole LPN Follow Up [...] from your doctor or pharmacy? Never 05/23/2024 [facility] Utilities Answer Date Recorded In the past 12 months has th e [employer], gas, oil, or water [employer] threatened to shut off services in your [...] Recorded Patient Health Questionnaire-2 Score 0 04/03/2024 [facility] of Occupat ional Health - Occupational Stress [...] time in the past [address] [facility], were you homeless or living in a alf (including now)? No 05/23/2024 Education Answer Date Recorded What is the highest level of school you have completed or the highest degree you have received? Master's degree (e.g., MA, MS, Howard, MEd, CORRUGATOR OPERATOR HELPER, KEKE) 12/21/2018 Comments No Sex and [...] Assessment Author Status No 05/23/2024 5:13 PM TIAART Angélica Johnson RN Active * Do you [...] Contact Info) Description 11/14/2024 8:00 AM INVESTMENT SPECIALIST Office Visit [facility] Multispecialty Care - [facility] 3 [facility], [address] [place] [address] Montserrat Oliver NP 3 [facility] [address] [place] [address] 12/06/2024 9:30 AM INVESTMENT SPECIALIST Appointment [facility] Open MRI [address] [place] [address] [place] [address] [facility] [employer]. [address] [place] [address] [phone] 03/02/2025 3:20 PM CDT Office Visit [facility] Family & Internal Medicine - [address] [phone] [place] [address] [place] [phone] documented as of this encounter Goals Goal Patient Goal Type Associated Problems Recent Progress Patient-Stated? Author Family - family caregiver with be involved in care transitions and discharge planning Lifestyle No Nessa Pan, OPERATIONAL INTELLIGENCE OFFICER documented as of this encounter Visit Diagnoses Not on filedocumented in this encounter Additional Health Concerns Assessment Noted Time PHQ-9 Depression Total Score: 0 04/03/20 24 10:56 AM CDT documented as of this encounter Care Teams Fitter Tacker Relationship Specialty [place] [address] [facility] [place] [address] PCP - General FAMILY PRACTICE 03/01/23 Perez Cervantes MD [address] [phone] RHEUMATOLOGY 09/02/23 Adriana Ma MD [address] [place] [address] Referring Physician ALLERGY 09/02/23 documented as of this encounter
--- OUTSIDE RECORDS SUMMARY | 2024-11-13 17:51 | XMS_ITS | Encounter Summary ---
Author Organization [facility] Address [address] [place] [address]. [place], [place] [address] [place] [address] Care Team Providers Care Cellophane Casting Machine Repairer Name Role Phone Dayanara Plaza MD Primary Care Provider [phone] Perez Cervantes MD Unavailable Adriana Ma MD Unavailable [phone] Reason for Referral * Procedure (Routine) - Closed Specialty Diagnoses / Procedures Referred By Chalino t Referred To Contact [facility] Physical Therapy Diagnoses Tarsal tunnel syndrome, right lower limb Procedures EMG Riley Thompson DPM [address] [address] Phone: tel: fax: Hay Melara MD 1 [place] [address] Phone: tel: fax: Referral ID Status Reason Start Date Expiration Date Visits Re quested Visits Authorized [id number] Closed 08/30/2024 08/30/2025 1 1 Reason for Visit * Procedure (Routine) - Closed Specialty Diagnoses / Procedures Referred By Contkayden t Referred To Contact [facility] Physical Therapy Diagnoses Tarsal tunnel syndrome, right lower limb Procedures EMG Riley Thompson DPM [address] [address] Phone: tel: fax: Hay Melara MD 1 [place] [address] Phone: tel: fax: Referral ID Status Reason Start Date Expiration Date Visits Re quested Visits Authorized [id number] Closed 08/30/2024 08/30/2025 1 1 Encounter Details Date Type Department Care Team (Latest Contact Info) Description 08/30/2024 2:44 PM CDT - 08/30/2024 11:59 PM CDT Hospital Encounter [facility] [place], [place] [phone] Riley Thompson, IHSAN [address] [facility] 5[address] [place] [address] Hay Melara MD [address] [place] [address] [phone] Discharge Disposition: Home or Self Care (Routine [...] doctor or pharmacy? Never 05/23/2024 [facility] Utilities Answer Date Recorded In [...] Recorded Patient Health Questionnaire-2 Score 0 04/03/2024 [facility] - Occupational Stress Questionnaire Answer [...] Master's degree (e.g., MA, MS, Howard, MEd, PLASTIC BUBBLE PACKER, KEKE) 12/21/2018 Comments No Sex and [...] st Contact Info) Description 11/14/2024 8:00 AM OCTAVE BOARD ASSEMBLER Office Visit [facility] Multispecialty Care - [facility] 3 [facility], [address] [place] [phone] Montserrat Oliver NP 3 [facility] [address] [place] [address] 12/06/2024 9:30 AM OCTAVE BOARD ASSEMBLER Appointment [facility] Open MRI [address] [place] [address] [place] [address] [facility] [address] [place] [address] [phone] 03/02/2025 3:20 PM CDT Office Visit [facility] Family & Internal Medicine - [address] [address] [place] [address] [facility]. [address] [place] [address] documented as of this encounter Goals Goal Patient Goal Type Associated Problems Recent Progress Patient-Stated? Author Family - family caregiver with be involved in care transitions and discharge planning Lifestyle No Nessa Pan, SUPERVISOR PRECISION OPTICAL ELEMENTS documented as of this encounter Procedures Procedure Name Priority Date/Time Associated Diagnosis Comments EMG Routine 08/30/2024 2:44 PM CDT Tarsal tunnel syndrome, right lower limb documented in this encounter Results * EMG (08/30/2024 2:44 PM CDT) 08/30/2024 2:44 PM CDT Narrative ESCRIPTION - 09/04/2024 12:49 PM CDT Patient Name: HANS PASCUAL Date of : 1965 Account: [id number] Facility: [facility] Location: [facility] Date of Service: 08/30/2024 EMG COMPLAINT: [...] HAY Ankur MELARA D: ??08/30/2024 03:04 PM ??#[id number] T: ??08/30/2024 04:06 PM ??/SKY us Riley Thompson DPM NEUROLOGY ORDERABLES Final Resul t ESCRIPTION documented in this encounter Visit Diagnoses Diagnosis Tarsal tunnel syndrome, right lower limb documented in this encounter Additional Health Concerns Assessment Noted Time PHQ-9 Depression Total Score: 0 04/03/20 24 10:56 AM CDT documented as of this encounter Care Teams Cellophane Casting Machine Repairer Relationship Specialty [place] [address] [facility] [address] [place] [address] PCP - General FAMILY PRACTICE 03/01/23 Perez Cervantes MD [address] [place] [phone] RHEUMATOLOGY 09/02/23 Adriana Ma MD [address] [place] [address] Referring Physician ALLERGY 09/02/23 documented as of this encounter
--- OUTSIDE RECORDS SUMMARY | 2024-11-13 17:51 | XMS_ITS | Encounter Summary ---
Author Organization [facility] Address [address] [place] [address]. [place] [address] [place] [address] Care Team Providers Care Bale Stacker Name Role Phone Dayanara Plaza MD Primary Care Provider [phone] Perez Cervantes MD Unavailable Adriana Ma MD Unavailable [phone] Encounter Details Date Type Department Care Team [...] from your doctor or pharmacy? Never 05/23/2024 [facility] Utilities Answer Date Recorded [...] Recorded Patient Health Questionnaire-2 Score 0 04/03/2024 [facility] of Occupat ional Health - [...] any time in the past 12 m [facility], were you homeless or living in a fci (including now)? No 05/23/2024 Education Answer Date Recorded What is the highest level of school you have completed or the highest degree you have received? Master's degree (e.g., MA, MS, Howard, MEd, REGISTERED TRAVEL NURSE, KEKE) 12/21/2018 Comments No Sex and Gender [...] st Contact Info) Description 11/14/2024 8:00 AM SUPPLY CHAIN MANAGER Office Visit [facility] Multispecialty Care - [facility] 3 [facility], [address] [place] [address] Motnserrat Oliver, ICING MAKER 3 [facility] [address] [place] [address] 12/06/2024 9:30 AM SUPPLY CHAIN MANAGER Appointment [facility] Open MRI [address] [facility] [place] [address] [place] [address] [place] [phone] 03/02/2025 3:20 PM CDT Office Visit [facility] Family & Internal Medicine - [address] [address] [place] [address] [place] [address] [phone] documented as of this encounter Goals Goal Patient Goal Type Associated Problems Recent Progress Patient-Stated? Author Family - family caregiver with be involved in care transitions and discharge planning Lifestyle No Nessa Pan, COMMAND AND CONTROL SPECIALIST documented as of this encounter Visit Diagnoses Not on filedocumented in this encounter Additional Health Concerns Assessment Noted Time PHQ-9 Depression Total Score: 0 04/03/20 10:56 AM CDT documented as of this encounter Care Teams Bale Stacker Relationship Specialty [place] [address] [place] [address] [phone] PCP - General FAMILY PRACTICE 03/01/23 Perez Cervantes MD [address] [place] [address] RHEUMATOLOGY 09/02/23 Adriana Ma MD [address] [place] [address]689 Referring Physician ALLERGY 09/02/23 documented as of this encounter
--- OUTSIDE RECORDS SUMMARY | 2024-11-13 17:51 | XMS_ITS | Encounter Summary ---
Author Organization [facility] Address [address] [place] [address]. [place], [place] [address] [place] [address] Care Team Providers Care Decontamination Technician Name Role Phone Dayanara Plaza MD Primary Care Provider [phone] Perez Cervantes MD Unavailable Adriana Ma MD Unavailable [phone] Reason for Visit * Reason Onset Date Comments TCM 05/31/2024 Encounter Details Date Type Department Care Team (Late st Contact Info) Description 05/31/2024 Telephone [facility] Family & Internal Medicine [facility] [address] [place] [address] Day[place] Plaza [place] [address] [place] [address]. [address] [place] [address] TCM Social History Tobacco Use [...] from your doctor or pharmacy? Never 05/23/2024 [facility] Utilities Answer Date Recorded In the past 12 months has [employer], gas, oil, or water [employer] threatened to shut off services in your [...] Recorded Patient Health Questionnaire-2 Score 0 04/03/2024 [facility] of Occupat ional Health - Occupational [...] Master's degree (e.g., MA, MS, Howard, MEd, DOUBLING MACHINE OPERATOR, KEKE) 12/21/2018 Comments No Sex [...] Status No 05/23/2024 5:13 PM TIARAT Johnson, Angélica K , RN Active documented [...] bowel obstruction NG placed in ER at [facility] NPO/IVF Pain Control - monitor for [...] st Contact Info) Description 11/14/2024 8:00 AM TOOLMAKER Office Visit [facility] Multispecialty Care - [facility] 3 [facility], [address] [place] [address] Montserrat Oliver NP 3 [facility] [address] [place] [address] 12/06/2024 9:30 AM TOOLMAKER Appointment [facility] Open MRI [address] [place] [address] [place] [address] [place] [address] 03/02/2025 3:20 PM CDT Office Visit [facility] Family & Internal Medicine - [place] [address] [place] [address] [place] [address] [place] [address] documented as of this encounter Goals Goal Patient Goal Type Associated Problems Recent Progress Patient-Stated? Author Family - family caregiver with be involved in care transitions and discharge planning Lifestyle No Nessa Pan, TERRAZZO GRINDER documented as of this encounter Visit Diagnoses Not on filedocumented in this encounter Additional Health Concerns Assessment Noted Time PHQ-9 Depression Total Score: 0 04/03/20 10:56 AM CDT documented as of this encounter Care Teams Decontamination Technician Relationship Specialty [place] [address] [place], [place] [phone] PCP - General FAMILY PRACTICE 03/01/23 Perez Cervantes MD [address] [place] [address] RHEUMATOLOGY 09/02/23 Adriana Ma MD [address] [place] [address]69 Referring Physician ALLERGY 09/02/23 documented as of this encounter
--- OUTSIDE RECORDS SUMMARY | 2024-11-13 17:52 | XMS_ITS | Encounter Summary ---
Author Organization [facility] Address [address] [place] [address]. [place] [address] [place] [address] Care Team Providers Care Developmental Education Instructor Name Role Phone Dayanara Plaza MD Primary Care Provider [phone] Perez Cervantes MD Unavailable Adriana Ma MD Unavailable [phone] Encounter Details Date Type Department Care Team [...] from your doctor or pharmacy? Never 05/23/2024 [facility] Utilities Answer Date Recorded In the [...] Health Questionnaire-2 Score 0 04/03/2024 [facility] of Occupat ional Health - Occupational [...] any time in the past 12 m [facility], were you homeless or living in a retirement (including now)? No 05/23/2024 Education Answer Date Recorded What is the highest level of school you have completed or the highest degree you have received? Master's degree (e.g., MA, MS, Howard, MEd, SHEET ROCK APPLICATOR, KEKE) 12/21/2018 Comments No Sex and Gender [...] Contact Info) Description 11/14/2024 8:00 AM SERVICE GIRL Office Visit [facility] - [facility] 3 [facility], [address] [place] [phone] Montserrat Oliver NP 3 [facility] [address] [place] [address] 12/06/2024 9:30 AM SERVICE GIRL Appointment [facility] [address] [place] [address] [place] [address] [facility] [address] [place] [address] 03/02/2025 3:20 PM CDT Office Visit [facility] Family & Internal Medicine - [address] [phone] [place] [address] [address] [place] [phone] documented as of this encounter Visit Diagnoses Not on filedocumented in this encounter Additional Health Concerns Assessment Noted Time PHQ-9 Depression Total Score: 0 04/03/20 10:56 AM CDT documented as of this encounter Care Teams Developmental Education Instructor Relationship Specialty [place] [address] [facility] [place] [address] PCP - General FAMILY PRACTICE 03/01/23 Perez Cervantes MD [address] [place] [phone] RHEUMATOLOGY 09/02/23 Adriana Ma MD [address] [place] [address] Referring Physician ALLERGY 09/02/23 documented as of this encounter
--- OUTSIDE RECORDS SUMMARY | 2024-11-13 17:52 | XMS_ITS | Encounter Summary ---
Author Organization [facility] Address [address] [place] [address]. [place] [address] [place] [address] Care Team Providers Care Firefighter Marine Name Role Phone Dayanara Plaza MD Primary Care Provider [phone] Perez Cervantes MD Unavailable Adriana Ma MD Unavailable [phone] Encounter Details Date Type Department Care Team [...] Master's degree (e.g., MA, MS, Howard, MEd, TERRAZZO LAYER HELPER, KEKE) 12/21/2018 Comments No Sex and [...] st Contact Info) Description 11/14/2024 8:00 AM SYSTEM MANAGER Office Visit [facility] Multispecialty Care - [facility] 3 [facility], [address] [place] [address] Montserrat Oliver NP 3 [facility] [address] [place] [address] 12/06/2024 9:30 AM SYSTEM MANAGER Appointment [facility] Open MRI [address] [place] [address] [place] [address] [employer] [place] [address] 03/02/2025 3:20 PM CDT Office Visit [facility] Family & Internal Medicine - [place] [address] [place] [phone] [place] [address] [place] [address] documented as of this encounter Visit Diagnoses Not on filedocumented in this encounter Additional Health Concerns Assessment Noted Time PHQ-9 Depression Total Score: 2 05/27/20 22 11:36 AM CDT documented as of this encounter Care Teams Firefighter Marine Relationship Specialty Start Date End Date Dayanara Plaza MD [address] [place] [address] Ave[address] [place] [address] PCP - General FAMILY PRACTICE 03/01/23 Perez Cervantes MD [address] DIV [place] [phone] RHEUMATOLOGY 09/02/23 Adriana Ma MD [address] [place] [address] Referring Physician ALLERGY 09/02/23 documented as of this encounter
--- OUTSIDE RECORDS SUMMARY | 2024-11-13 17:52 | XMS_ITS | Encounter Summary ---
Author Organization [facility] Address [address] [place] [address]. [place] [address] [place] [address] Care Team Providers Care Farm Manager Name Role Phone Dayanara Plaza MD Primary Care Provider [phone] Perez Cervantes MD Unavailable Adriana Ma MD Unavailable [phone] Reason for Referral * Imaging (Emergency) - New Request Specialty Diagnoses / Procedures Referred By Chalino t Referred To Contact RADIOLOGY Procedures CT ABD+PEL W IV CON ONLY García Garay DO [address] [place] [address] Phone: tel: fax: Referral ID Status Reason Start Date Expiration Date V isits Requested Visits Authorized [id number] New Request 05/23/2024 05/23/2025 1 1 Reason for Visit * Reason Comments Gi Problem Encounter Details Date Type Department Care Team (Late st Contact Info) Description 05/23/2024 1:03 AM CDT - 05/23/2024 6:10 AM CDT Emergency [facility] Emergency Room [id number] [place] [address] García Garay DO [address] [place] [address] Gi Problem Discharge Disposition: Transfer [...] from your doctor or pharmacy? Never 05/23/2024 [facility] Utilities Answer Date Recorded In the past 12 months has e electric, gas, oil, or water [employer] threatened to shut off services in your [...] Recorded Patient Health Questionnaire-2 Score 0 04/03/2024 [facility] of Occupat ional Health - Occupational Stress [...] were you homeless or living in a custodial (including now)? No 05/23/2024 Education Answer Date Recorded What is the highest level of school you have completed or the highest degree you have received? Master's degree (e.g., MA, MS, Howard, MEd, MUSICAL STRING MAKER, KEKE) 12/21/2018 Comments No Sex and [...] Inflammatory arthritis Plantar fasciitis RA (rheumatoid arthritis) ([facility]/HCC HHS/HCC) PAST SURGICAL HISTORY: Past Surgical History: Procedure Laterality Date CHOLECYSTECTOMY COLONOSCOPY N/A 03/17/2021 COLONOSCOPY-NORMAL performed by Niall Matute MD at [facility] GI COLONOSCOPY STOMA DX INCLUDING COLLJ [...] IV CON ONLY Final Result by User, [id number] (05/23 030) CT of the abdomen and [...] discussed case with Dr. Sauer, surgery at [place], ok to evaluate patient. 3:27AM - per transfer line, Dr. Sarkar accepts transfer Medical Decision Making 59-year-old female who presented with diffuse abdominal pain. Patient has stable vitals. Blood workshows normal white blood cell count. CT scan concerning for small bowel obstruction. We were able to place NG tube in the emergency department without difficulty. Discussed case with surgery and hospitalist at [facility], accepted transfer. Problems Addressed: SBO (small bowel [...] st Contact Info) Description 11/14/2024 8:00 AM CLAIMS ADMINISTRATOR Office Visit [facility] Multispecialty Care - [facility] 3 [facility], [address] [place] [address] Montserrat Oliver NP 3 [facility] [address] [place] [address] 12/06/2024 9:30 AM CLAIMS ADMINISTRATOR Appointment [facility] Open MRI [address] [place] [address] [place] [address] [facility] [address] [place] [address] 03/02/2025 3:20 PM CDT Office Visit [facility] Family & Internal Medicine - [address] [phone] [place] [address] [place] [address] documented as of this encounter Procedures Procedure [...] distal fundus or proximal body of stomach. ??monitoring engineer leads overlie the chest and abdomen. ??Mild [...] the distal fundus or proximal body of stomach.monitoring engineer leads overlie the chest and abdomen. Mild [...] disc. ??No acute bony abnormality. Procedure Note Toney Blackmon MD - 05/23/2024 CT of the [...] - 77 UNITS/L 05/23/2024 1:54 AM CDT [facility] 05/23/2024 1:10 AM CDT García Garay DO LABORATORY Final Res ult [facility] [address] [place] [address], * (ABNORMAL) COMPREHENSIVE METABOLIC PANEL (05/23/2024 1:10 AM CDT) Pathologist [facility] GLUCOSE 112(H) 70 - 99 MG/DL 05/23/2024 1:54 AM CDT [facility] BUN 19(H) 7 - 18 MG/DL 05/23/2024 1:54 AM CDT [facility] CREATININE S/P/B 1.07(H) 0.55 - 1.02 MG/DL 05/23/2024 1:54 AM CDT [facility] SODIUM S/P/B 140 136 - 145 MMOL/L 05/23/2024 1:54 AM CDT [facility] POTASSIUM S/P/B 3.6 3.5 - 5.1 MMOL/L 05/23/2024 1:54 AM CDT [facility] CHLORIDE S/P/B 103 100 - 108 MMOL/L 05/23/2024 1:54 AM CDT [facility] CO2 25.2 21 - 32 MMOL/L 05/23/2024 1:54 AM [facility] CALCIUM S/P/B 10.0 8.5 - 10.1 MG/DL 05/23/2024 1:54 AM [facility] BILIRUBIN TOTAL S/P/B 0.8 0.2 - 1.2 MG/DL 05/23/2024 1:54 AM [facility] TOTAL PROTEIN S/P/B 7.4 6.4 - 8.2 G/DL 05/23/2024 1:54 AM [facility] ALBUMIN S/P/B 3.4 3.4 - 5.0 G/DL 05/23/2024 1:54 AM [facility] AST 21 15 - 37 U/L 05/23/2024 1:54 AM [facility] ALT 24 14 - 55 U/L 05/23/2024 1:54 AM [facility] ALKALINE PHOSPHATASE S/P/B 103 50 - 136 U/L 05/23/2024 1:54 AM [facility] ANION GAP 11.8 5 - 15 MMOL/L 05/23/2024 1:54 AM [facility] BUN CREATININE RATIO 17.8 6 - 26 05/23/2024 1:54 AM [facility] A/G RATIO 0.8(L) 1.0 - 2.0 RATIO 05/23/2024 1:54 AM [facility] GFR ESTIMATE 59(L) >90 ML/MIN/1.7 3 M2 05/23/2024 1:54 AM [facility] Comment: NOTE: eGFR is not calculated for patients <18 years of age. This is an estimated GFR calculation using the new CKD EPI creatinine equation without race and so does not require a correction factor for race. This estimated GFR should not be used for calculating drug doses. 05/23/2024 1:10 AM CDT us García Garay DO LABORATORY Final Res ult [facility] [address] [place] [address], [place] [phone] * (ABNORMAL) CBC W/DIFF AUTOMATED (05/23/2024 1:10 AM CDT) WBC 8.97 4.4 - 11.0 x10'3/uL 05/23/2024 1:39 AM CDT [facility] RBC 4.11(L) 4.50 - 5.10 x10'6/uL 05/23/2024 1:39 AM CDT [facility] HGB 13.8 12.3 - 15.3 G/DL 05/23/2024 1:39 AM CDT [facility] HCT 39.8 35.9 - 44.6 % 05/23/2024 1:39 AM CDT [facility] MCV 96.8(H) 80.0 - 96.0 FL 05/23/2024 1:39 AM CDT [facility] MCH 33.6(H) 25.3 - 30.9 PG 05/23/2024 1:39 AM CDT [facility] MCHC 34.7(H) 31.0 - 34.1 G/DL 05/23/2024 1:39 AM CDT [facility] RDW 14.7 12.4 - 15.1 % 05/23/2024 1:39 AM CDT [facility] PLT 245 151 - 353 x10'3/uL 05/23/2024 1:39 AM CDT [facility] MPV 10.4 9.6 - 12.0 FL 05/23/2024 1:39 AM CDT [facility] RBC MORPHOLOGY NORMAL 05/23/2024 1:39 AM CDT [facility] PLT MORPH. NORMAL 05/23/2024 1:39 AM CDT [facility] WBC MORPHOLOGY NORMAL 05/23/2024 1:39 AM CDT [facility] LYMPHOCYTES % 24.4 15.8 - 45.0 % 05/23/2024 1:39 AM CDT [facility] NEUTROPHILS % 64.1 42.1 - 71.9 % 05/23/2024 1:39 AM CDT [facility] MONOCYTES % 10.4 5.7 - 12.5 % 05/23/2024 1:39 AM CDT [facility] EOSINOPHILS 0.6 0.0 - 5.6 % 05/23/2024 1:39 AM CDT [facility] BASOPHILS 0.2 0.0 - 1.3 % 05/23/2024 1:39 AM CDT [facility] ABS. NEUTROPHILS 5.75 1.40 - 6.00 x10'3/uL 05/23/2024 1:39 AM CDT [facility] IMMATURE GRANS % 0.3 0.0 - 0.5 % 05/23/2024 1:39 AM CDT [facility] ABS. LYMPHOCYTES 2.19 0.80 - 4.70 x10'3/uL 05/23/2024 1:39 AM CDT [facility] 05/23/2024 1:10 AM CDT us García Garay DO LABORATORY Final Res ult [facility] [address] [place] [address], documented in this encounter Visit Diagnoses Diagnosis SBO (small bowel obstruction) (CMS/HCC [facility]/HCC)- Primary Unspecified intestinal obstruction documented in this [...] documented as of this encounter Care Teams Farm Manager Relationship Specialty [place] [address] [facility]. [address] [place] [address] PCP - General FAMILY PRACTICE 03/01/23 Perez Cervantes MD [address] [place] [phone] RHEUMATOLOGY 09/02/23 Adriana Ma MD [address] [place] [address] [phone] Referring Physician ALLERGY 09/02/23 documented as of this encounter
--- OUTSIDE RECORDS SUMMARY | 2024-11-13 17:52 | XMS_ITS | Encounter Summary ---
Author Organization [facility] Address [address] [place] [address]. [place], [place] [address] [place] [address] Care Team Providers Care Hairspring Assembler Name Role Phone Dayanara Plaza MD Primary Care Provider [phone] Encounter Details Date Type Department Care Team (Latest Contact Info) Description 08/30/2023 5:10 PM CDT - 08/30/2023 11:59 PM CDT Hospital Encounter [facility] [address] [place] [address] [place] [address] [place], [place] [phone] Discharge Disposition: Home or Self Care (Routine [...] Master's degree (e.g., MA, MS, Howard, MEd, SALES REP, KEKE) 12/21/2018 Comments No Sex and [...] mouth 2 (two) times daily. 11/24/2021 4 [place]-3 Fatty Acids (FISH OIL) 1200 MG Cap Take 1 capsule by mouth daily. 4 polyethylene glycol packet Take 240 mLs (1 packet total) by mouth daily as needed. 4 documented as of this encounter Plan of Treatment Upcoming Encounters Date Type Department Care Team (Late st Contact Info) Description 11/14/2024 8:00 AM RESIDENT DOCTOR Office Visit [facility] Multispecialty Care - [facility] 3 [facility], [address] [place] [phone] Montserrat Oliver NP 3 [facility] [address] [place] [address] 12/06/2024 9:30 AM RESIDENT DOCTOR Appointment [facility] Open MRI [address] [place] [address] [place] [address] [facility] [place] [phone] 03/02/2025 3:20 PM CDT Office Visit [facility] Family & Internal Medicine - [address] [phone] [place] [address] [facility] Darlene. [address] [place] [address] documented as of this encounter Procedures Procedure Name Priority Date/Time Associated Diagnosis Comments URINE BACTERIA CULTURE Routine 08/30/2023 1:37 PM CDT Acute cystitis without hematuria documented in this encounter Results * CULTURE URINE (08/30/2023 1:37 PM CDT) SPEC DESCRIPTION URINE CLEAN CATCH 08/30/2023 5:11 PM CDT [facility] SPECIAL REQUESTS NO SPECIAL REQUEST 08/30/2023 5:11 PM CDT [facility] CULTURE RESULT NO GROWTH 2 DAYS 09/01/2023 7:46 AM CDT [facility] URINE SPECIMEN OBTAINED BY CLEAN CATCH PROCEDURE / Unknown 08/30/2023 1:37 PM CDT 08/30/2023 5:21 PM CDT us Yasmin MARTÍNEZ MICROBIOLOGY - GENERAL ORDER ADELAIDE Final Result [facility] [address] [place] [address], [place] [phone] [facility] [address] [place] [address], [place] [phone] documented in this encounter Visit Diagnoses Diagnosis Acute cystitis without hematuria Acute cystitis documented in this encounter Additional Health Concerns Assessment Noted Time PHQ-9 Depression Total Score: 2 05/27/20 22 11:36 AM CDT documented as of this encounter Care Teams Hairspring Assembler Relationship Specialty [place] [address] [address] [place] [address] PCP - General FAMILY PRACTICE 03/01/23 documented as of this encounter
--- OUTSIDE RECORDS SUMMARY | 2024-11-13 17:52 | XMS_ITS | Encounter Summary ---
Author Organization [facility] Address [address] [place] [address]. [place] [address] [place] [address] Care Team Providers Care Assistant Casino Shift Manager Name Role Phone Dayanara Plaza MD Primary Care Provider [phone] Reason for Visit * Reason Comments URI Cough, sore throat, chest congestion, left ear clogged, headache, low grade fever X 10 days Encounter Details Date Type Department Care Team (Late st Contact Info) Description 03/25/2023 3:20 PM CDT Office Visit [facility] Family & Internal Medicine [facility] [address] [place] [address] [place] [address] [place] [address] URI (Cough, sore throat, chest [...] degree (e.g., MA, MS, Howard, MEd, LEAD DENTAL ASSISTANT, KEKE) 12/21/2018 Comments No Sex and [...] Everywhere. * Acute Bronchitis Discharge Instructions, Adult ([facility]) documented in this encounter Progress Notes * [...] total) by mouth 2 (two) times daily. [place]-3 Fatty Acids (FISH OIL) 1200 MG Cap [...] bowel syndrome) Inflammatory arthritis RA (rheumatoid arthritis) ([facility]) Wears glasses Past Surgical History: Procedure Laterality [...] ACUTE FRONTAL SINUSITIS Orders Placed This Encounter [place]-3 Fatty Acids (FISH OIL) 1200 MG Cap [...] Portions of this note were dictated using Cupoint speech recognition software. Occasional wrong wordor sound-alike [...] st Contact Info) Description 11/14/2024 8:00 AM WAREHOUSE SHIPPING RECEIVING CLERK Office Visit [facility] Multispecialty Care - [facility] 3 [facility], [address] [place] [phone] Montserrat Oliver NP 3 [facility] [address] [place] [address] 12/06/2024 9:30 AM WAREHOUSE SHIPPING RECEIVING CLERK Appointment [facility] Open MRI [address] [place] [address] [place] [address] [facility] [place] [phone] 03/02/2025 3:20 PM CDT Office Visit [facility] Family & Internal Medicine - [address] [phone] [place] [address] [facility] [place] [address] documented as of this encounter Visit Diagnoses Diagnosis Acute cough- Primary Acute non-recurrent frontal sinusitis documented in this encounter Additional Health Concerns Assessment Noted Time PHQ-9 Depression Total Score: 2 05/27/20 22 11:36 AM CDT documented as of this encounter Care Teams Assistant Casino Shift Manager Relationship Specialty [place] [address] [address] [place] [address] PCP - General FAMILY PRACTICE 03/01/23 documented as of this encounter
--- OUTSIDE RECORDS SUMMARY | 2024-11-13 17:52 | XMS_ITS | Encounter Summary ---
Author Organization [facility] Address [address] [place] [address]. [place], [place] [phone] [place] [address] Care Team Providers Care Supervisor Phosphatic Fertilizer Name Role Phone Dayanara Plaza MD Primary Care Provider [phone] Perez Cervantes MD Unavailable Adriana Ma MD Unavailable [phone] Encounter Details Date Type Department Care Team (Late st Contact Info) Description 02/25/2024 [employer] Message Enc [facility] Medical [facility] Family & Internal Medicine [facility] [phone] [place] [phone] Dayanara Plaza [place] [address] [place] [address]. [address] [place] [address] [facility] asked me to contact you Social History [...] Master's degree (e.g., MA, MS, Howard, MEd, CHURCH SECRETARY, KEKE) 12/21/2018 Comments No Sex and Gender [...] st Contact Info) Description 11/14/2024 8:00 AM PARK WORKER Office Visit [facility] Multispecialty Care - [address], [address] [place] [phone] Montserrat Oliver NP [address] [place] [address] [place] [address] 12/06/2024 9:30 AM PARK WORKER Appointment [facility] Open MRI [address] [place] [address] [place] [address] [facility] Darlene. [address] [place] [phone] 03/02/2025 3:20 PM CDT Office Visit [facility] Family & Internal Medicine - [address] [phone] [place] [address] [facility] Colon. [address] [place] [phone] documented as of this encounter Visit Diagnoses Diagnosis Insomnia due to other mental disorder documented in this encounter Additional Health Concerns Infection Onset Date Last Indicated Resolved Time COVID-19 Rule Out 04/03/2024 04/03/2024 04/03/2024 11:38 AM CDT Assessment Noted Time PHQ-9 Depression Total Score: 2 05/27/20 11:36 AM CDT documented as of this encounter Care Teams Supervisor Phosphatic Fertilizer Relationship Specialty [place] [address] [facility]. [address] [place] [address] PCP - General FAMILY PRACTICE 03/01/23 Perez Cervantes MD [address] [place] [phone] RHEUMATOLOGY 09/02/23 Adriana Ma MD [address] [place] [address] Referring Physician ALLERGY 09/02/23 documented as of this encounter
--- OUTSIDE RECORDS SUMMARY | 2024-11-13 17:52 | XMS_ITS | Encounter Summary ---
Author Organization [facility] Address [address] [place] [address]. [place] [address] [place] [address] Care Team Providers Care Manufacturing Group Leader Name Role Phone Dayanara Plaza MD Primary Care Provider Perez Cervantes MD Unavailable Adriana Ma MD Unavailable [phone] Encounter Details Date Type Department Care Team [...] Master's degree (e.g., MA, MS, Howard, MEd, CARDIOPULMONARY TECHNOLOGIST CHIEF, KEKE) 12/21/2018 Comments No Sex and Gender [...] st Contact Info) Description 11/14/2024 8:00 AM INSTRUMENT CALIBRATOR Office Visit [facility] Multispecialty Care - [facility] 3 [facility], [address] [place] [address] Montserrat Oliver, CELLOPHANE WORKER 3 [facility] [address] [place] [address] 12/06/2024 9:30 AM INSTRUMENT CALIBRATOR Appointment [facility] Open MRI [address] [place] [address] [place] [address] [employer]. [address] [place] [address] 03/02/2025 3:20 PM CDT Office Visit [facility] Family & Internal Medicine - [place] [address] [place] [phone] [place] [address] [facility]. [address] [place] [address] documented as of this encounter Visit Diagnoses Not on filedocumented in this encounter Additional Health Concerns Infection Onset Date Last Indicated Resolved Time COVID-19 Rule Out 04/03/2024 04/03/2024 04/03/2024 11:38 AM CDT Assessment Noted Time PHQ-9 Depression Total Score: 0 04/03/20 24 10:56 AM CDT documented as of this encounter Care Teams Manufacturing Group Leader Relationship Specialty [place] [address] [address] [place] [address] PCP - General FAMILY PRACTICE 03/01/23 Perez Cervantes MD [address] [place] [address] RHEUMATOLOGY 09/02/23 Adriana Ma MD [address] [place] [address] Referring Physician ALLERGY 09/02/23 documented as of this encounter
--- OUTSIDE RECORDS SUMMARY | 2024-11-13 17:52 | XMS_ITS | Encounter Summary ---
Author Organization [facility] Address [address] [place] [address]. [place] [address] [place] [address] Care Team Providers Care Toy Mechanic Name Role Phone Dayanara Plaza MD Primary Care Provider [phone] Perez Cervantes MD Unavailable Adriana Ma MD Unavailable [phone] Encounter Details Date Type Department Care Team (Late st Contact Info) Description 09/02/2023 [employer] Message Enc [facility] Family & Internal Medicine [facility] [id number] [place] [address] Day[place] [address] [place] [address]. [address] [place] [address] eKG and pre surgery info [...] Master's degree (e.g., MA, MS, Howard, MEd, BOBBIN PRESSER, KEKE) 12/21/2018 Comments No Sex and Gender [...] st Contact Info) Description 11/14/2024 8:00 AM LABOURERS Office Visit [facility] Multispecialty Care - [facility] 3 [facility], [address] [place] [phone] Montserrat Oliver NP 3 [facility] [address] [place] [address] 12/06/2024 9:30 AM LABOURERS Appointment [facility] Open MRI [address] [place] [address] [place] [address] [address] [place] [address] 03/02/2025 3:20 PM CDT Office Visit [facility] Medical [facility] Family & Internal Medicine - [place] [address] [place] [address] [place] [address] [facility]. [address] [place] [address] documented as of this encounter Visit Diagnoses Not on filedocumented in this encounter Additional Health Concerns Assessment Noted Time PHQ-9 Depression Total Score: 2 05/27/20 22 11:36 AM CDT documented as of this encounter Care Teams Toy Mechanic Relationship Specialty [place] [address] [facility]. [address] [place] [address] PCP - General FAMILY PRACTICE 03/01/23 Perez Cervantes MD [address] [place] [phone] RHEUMATOLOGY 09/02/23 Adriana Ma MD [address] [place] [address] Referring Physician ALLERGY 09/02/23 documented as of this encounter
--- OUTSIDE RECORDS SUMMARY | 2024-11-13 17:52 | XMS_ITS | Encounter Summary ---
Author Organization [facility] Address [address] [place] [address]. [place] [address] [place] [address] Care Team Providers Care Facility Technician Name Role Phone Dayanara Plaza MD Primary Care Provider [phone] Perez Cervantes MD Unavailable Adriana Ma MD Unavailable [phone] Encounter Details Date Type Department Care Team [...] Master's degree (e.g., MA, MS, Howard, MEd, SUBCONTRACT ADMINISTRATOR, KEKE) 12/21/2018 Comments No Sex and [...] st Contact Info) Description 11/14/2024 8:00 AM MICROARRAY OPERATIONS VICE PRESIDENT Office Visit [facility] Multispecialty Care - [facility] 3 [facility], [address] [place] [address] Montserrat Oliver NP 3 [facility] [address] [place] [address] 12/06/2024 9:30 AM MICROARRAY OPERATIONS VICE PRESIDENT Appointment [facility] Open MRI [address] [place] [address] [place] [address] [employer] [address] [place] [address] 03/02/2025 3:20 PM CDT Office Visit [facility] Family & Internal Medicine - [place] [address] [place] [phone] [place] [address] [facility] [address] [place] [address] documented as of this encounter Visit Diagnoses Not on filedocumented in this encounter Additional Health Concerns Assessment Noted Time PHQ-9 Depression Total Score: 2 05/27/20 22 11:36 AM CDT documented as of this encounter Care Teams Facility Technician Relationship Specialty Start Date End Date Dayanara Plaza MD [address] [place] [address] Ave[address] [place] [address] PCP - General FAMILY PRACTICE 03/01/23 Perez Cervantes MD [address] [place] [phone] RHEUMATOLOGY 09/02/23 Adriana Ma MD [address] [place] [address] Referring Physician ALLERGY 09/02/23 documented as of this encounter
--- OUTSIDE RECORDS SUMMARY | 2024-11-13 17:52 | XMS_ITS | Encounter Summary ---
Author Organization [facility] Address [address] [place] [address]. [place] [address] [place] [address] Care Team Providers Care Rough Planer Tender Name Role Phone Dayanara Plaza MD Primary Care Provider [phone] Perez Cervantes MD Unavailable Adriana aM MD Unavailable [phone] Encounter Details Date Type Department Care Team (Late st Contact Info) Description 07/27/2023 [employer] Message Enc [facility] Medical Group Family & Internal Medicine [facility] [address] [place] [phone] Day[place]ara Plaza [place] [address] [place] [address]. [address] [place] [address] Travel next week Social History [...] Master's degree (e.g., MA, MS, Howard, MEd, STREET CAR INSPECTOR, KEKE) 12/21/2018 Comments No Sex and [...] st Contact Info) Description 11/14/2024 8:00 AM NAVAL AIRCREWMAN AVIONICS Office Visit [facility] Multispecialty Care - [facility] 3 [facility], [address] [place] [phone] Montserrat Oliver NP 3 [facility] [address] [place] [address] 12/06/2024 9:30 AM NAVAL AIRCREWMAN AVIONICS Appointment [facility] Open MRI [address] [place] [address] [place] [address] [facility] [address]. [address] [place] [phone] 03/02/2025 3:20 PM CDT Office Visit [facility] Medical [facility] Family & Internal Medicine - [address] [address] [place] [address] [facility]. [address] [place] [phone] documented as of this encounter Visit Diagnoses Diagnosis Immunocompromised ([facility]/HCC HHS/HCC)- Primary Unspecified immunity deficiency Travel advice encounter At increased risk of exposure to COVID-19 virus documented in this encounter Additional Health Concerns Infection Onset Date Last Indicated Resolved Time COVID-19 Rule Out 04/03/2024 04/03/2024 04/03/2024 11:38 AM CDT Assessment Noted Time PHQ-9 Depression Total Score: 2 05/27/20 11:36 AM CDT documented as of this encounter Care Teams Rough Planer Tender Relationship Specialty [place] [address] [facility]. [address] [place] [address] PCP - General FAMILY PRACTICE 03/01/23 Perez Cervantes MD [address] [place] [address] RHEUMATOLOGY 09/02/23 Adriana Ma MD [address] [place] [address] Referring Physician ALLERGY 09/02/23 documented as of this encounter
--- OUTSIDE RECORDS SUMMARY | 2024-11-13 17:52 | XMS_ITS | Encounter Summary ---
Author Organization [facility] Address [address] [place] [address]. [place] [address] [place] [address] Care Team Providers Care Portfolio Director Name Role Phone Dayanara Plaza MD Primary Care Provider [phone] Perez Cervantes MD Unavailable Adriana Ma MD Unavailable [phone] Reason for Visit * Reason Comments ECG [...] Master's degree (e.g., MA, MS, Howard, MEd, AURIST, KEKE) 12/21/2018 Comments No Sex and Gender [...] st Contact Info) Description 11/14/2024 8:00 AM JBOSS DEVELOPER Office Visit [facility] Multispecialty Care - [facility] [address] [facility] [address], [address] [place] [address] Montserrat Oliver NP 3 [facility] [address] [place] [address] 12/06/2024 9:30 AM JBOSS DEVELOPER Appointment [facility] Open MRI [address] [place] [address] [place] [address] [place] [phone] 03/02/2025 3:20 PM CDT Office Visit [facility] Family & Internal Medicine - [address] [address] [place] [address] [place] [phone] documented as of this encounter Procedures Procedure [...] documented as of this encounter Care Teams Portfolio Director Relationship Specialty [place] [address] [facility]. [address] [place] [address] PCP - General FAMILY PRACTICE 03/01/23 Perez Cervantes MD [address] [place] [phone] RHEUMATOLOGY 09/02/23 Adriana Ma MD [address] [place] [phone] Referring Physician ALLERGY 09/02/23 documented as of this encounter
--- OUTSIDE RECORDS SUMMARY | 2024-11-13 17:52 | XMS_ITS | Encounter Summary ---
Author Organization [facility] Address [address] [place] [address]. [place], [place] [address] [place] [address] Care Team Providers Care Virtualization Engineer Name Role Phone Izzy Plaza MD Primary Care Provider [phone] Encounter Details Date Type Department Care Team (Latest Contact Info) Description 09/01/2023 11:30 AM CDT - 09/01/2023 11:59 PM T Hospital Encounter [facility] Cardiopulmonary Services [address] [place] [address] [place] [address] [facility]. [address] [place] [address] Discharge Disposition: Home or Self Care (Routine [...] degree (e.g., MA, MS, Howard, MEd, SUPERVISOR STENO POOL, KEKE) 12/21/2018 Comments No Sex and Gender [...] mouth 2 (two) times daily. 11/24/2021 4 Homeland-3 Fatty Acids (FISH OIL) 1200 MG Cap Take 1 capsule by mouth daily. 4 polyethylene glycol packet Take 240 mLs (1 packet total) by mouth daily as needed. 4 documented as of this encounter Plan of Treatment Upcoming Encounters Date Type Department Care Team (Late st Contact Info) Description 11/14/2024 8:00 AM DRAWER WAXER Office Visit [facility] Multispecialty Care - [facility] 3 [facility] [place] [facility], [address] [place] [phone] Montserrat Oliver NP 3 [facility] [address] [place] [address] 12/06/2024 9:30 AM DRAWER WAXER Appointment [facility] MRI [address] [place] [address] [place] [address] [facility]. [address] [place] [address] 03/02/2025 3:20 PM CDT Office Visit [facility] Family & Internal Medicine - [address] [phone] [place] [address] [place] [address] documented as of this encounter Procedures Procedure Name Priority Date/Time Associated Diagnosis Comments ECG 12-LEAD Routine 09/01/2023 11:48 AM CDT Preop examination Plantar fasciitis of right foot Hypotension due to hypovolemia documented in this encounter Results * ECG 12 lead (Hosp Performed) (09/01/2023 11:48 AM CDT) 09/01/2023 11:4 8 AM CDT Narrative [facility] ([facility] RAD - 09/04/2023 10:13 AM CDT ?[facility] ? Test Date: ?2023-09-01 Pat Name: ? HANS PASCUAL ? Department: ?? 85 ? Room: ? Gender: ? Female ? Aquatic Habitat Biologist: ?? : ?1965 ? Requested By: IZZY PLAZA Order Number: [id number] ? Reading MD: ?? Clement Young ? Measurements Intervals ?[place] ? Rate: ? 65 ? P: ?75 AK: ? 194 ?QRS: ?69 QRSD: ? 90 ? T: ?56 QT: ? 375 ? QTc: ?391 ? Interpretive Statements SINUS RHYTHM No previous ECG available for comparison Procedure Note Clement Young MD - 09/04/2023 [facility] Test Date: 2023-09-01 Pat Name: [facility] Department: 85 Room: Gender: Female Aquatic Habitat Biologist: : 1965 Requested By: IZZY PLAZA Order Number: [id number] Reading MD: Clement Young Measurements Intervals [place] Rate: 65 P: 75 AK: 194 QRS: 69 QRSD: 90 T: 56 QT: 375 QTc: 391 Interpretive Statements SINUS RHYTHM No previous ECG available for comparison us Izzy Plaza MD ECG ORDERABLES Final Result [facility] ([facility] RAD documented in this encounter Visit Diagnoses Diagnosis Preop examination Preoperative examination, unspecified Plantar fasciitis of right foot Plantar fascial fibromatosis Hypotension due to hypovolemia documented in this encounter Additional Health Concerns Assessment Noted Time PHQ-9 Depression Total Score: 2 05/27/20 22 11:36 AM CDT documented as of this encounter Care Teams Virtualization Engineer Relationship Specialty [place] [address] [facility] [address]. [address] [place] [address] PCP - General FAMILY PRACTICE 03/01/23 documented as of this encounter
--- OUTSIDE RECORDS SUMMARY | 2024-11-13 17:52 | XMS_ITS | Encounter Summary ---
Author Organization [facility] Address [address] [place] [address]. [place], [place] [address] [place] [address] Care Team Providers Care Performance Engineer Name Role Phone Dayanara Plaza MD Primary Care Provider [phone] Perez Cervantes MD Unavailable Adriana Ma MD Unavailable [phone] Reason for Visit * Reason Comments Medication Management Encounter Details Date Type Department Care Team (Late st Contact Info) Description 05/11/2024 3:20 PM CDT Office Visit [facility] Medical Group Family & Internal Medicine [address] [address] Dayanara Plaza MD [address] [place] [address]. [address] [place] [address] Medication Management Social History Tobacco Use [...] from your doctor or pharmacy? Never 05/23/2024 [facility] Utilities Answer Date Recorded In the past 12 months has th e electric, gas, oil, or water [employer] threatened to shut off services in your [...] any time in the past 12 m [facility], were you homeless or living in a detention (including now)? No 05/23/2024 Education Answer Date Recorded What is the highest level of school you have completed or the highest degree you have received? Master's degree (e.g., MA, MS, Howard, MEd, HYDRO EXCAVATION OPERATOR, KEKE) 12/21/2018 Comments No Sex and [...] * Patient Instructions* Dayanara Plaza MD - 05/11/2024 3:20 PM CDT START [...] WEIGHT. fH OF DIABETES in [place]. SPECIALISTS: squad boss, Cafeteria Director. 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 No other concerns for today [...] Inflammatory arthritis Plantar fasciitis RA (rheumatoid arthritis) ([facility]) Wears glasses Past Surgical History: Procedure Laterality Date CHOLECYSTECTOMY COLONOSCOPY N/A 03/17/2021 COLONOSCOPY-NORMAL performed by Niall Matute MD at [facility] GI COLONOSCOPY STOMA DX INCLUDING COLLJ SPEC SPX AH 9 yrs. 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 Need for rbromistxr-fefsgpx-pidqnqcvh (Tdap) vaccine [62191] Adacel (Tdap) Recommendations and Plan: Increase trazodone to 150 mg qD Orders Placed This Encounter LIPID PANEL HEMOGLOBIN, GLYCOSYLATED TSH W/REFLEX VITAMIN D, 25 [place] [[address]] Adacel (Tdap) traZODone (DESYREL) 100 MG tablet dicyclomine (BENTYL) 20 MG tablet Reviewed and updated this visit by provider: Dayanara Plaza MD Referring Provider: No ref. provider found PCP: Dayanara Plaaz MD documented in this encounter Plan of Treatment Upcoming Encounters Date Type Department Care Team (Late st Contact Info) Description 11/14/2024 8:00 AM TIER AND DETONATOR Office [facility] Multispecialty Care - [facility] 3 [facility], [address] [place] [phone] Montserrat Oliver, DOREEN 3 [facility] [address] [place] [address] 12/06/2024 9:30 AM TIER AND DETONATOR Appointment [facility] Open MRI [address] [place] [address] [place] [address] [address] [place] [address] 03/02/2025 3:20 PM CDT Office Visit [facility] Family & Internal Medicine - [place] [address] [place] [address] [place] [address] [facility]. [address] [place] [address] documented as of this encounter Goals Goal Patient Goal Type Associated Problems Recent Progress Patient-Stated? Author Family - family caregiver with be involved in care transitions and discharge planning Lifestyle No Nessa Pan, DIE ATTACHER documented as of this encounter Results * VITAMIN D, 25 [place] (06/02/2024 3:43 PM CDT) VITAMIN D 25 HYDROXY S/P/B 51 30 - 100 NG/ML 06/02/2024 6:00 PM CDT [facility] Comment: ? INTERPRETATION ? DEFICIENT ??<20 ? INSUFFICIENT 20-29 ?SUFFICIENT 30-100 06/02/2024 3:43 PM CDT Dayanara Plaza MD LABORATORY Final Result Performing Organization Address [facility] de Phone Number [facility] [address] [place] [address], * TSH W/REFLEX (06/02/2024 3:43 PM CDT) TSH 0.707 0.358 - 3.74 uIU/ML 06/02/2024 5:47 PM CDT [facility] Comment: HIGH DOSES OF BIOTIN MAY INTERFERE WITH THIS TEST RESULT. CORRELATION TO CLINICAL HISTORY AND PRESENTATION RECOMMENDED. FREE T4 NOT INDICATED 06/02/2024 3:43 PM CDT Dayanara Plaza MD LABORATORY Final Result Performing Organization Address [facility] Co de Phone Number [facility] [address] [place] [address], * HEMOGLOBIN, GLYCOSYLATED (06/02/2024 3:43 PM CDT) HGB A1C 5.3 <5.7 % 06/02/2024 6:50 PM CDT [facility] Comment: INCREASED RISK OF DIABETES <5.7% ?NON-DIABETES 5.7-6.4% INCREASED RISK FOR FUTURE DIABETES > OR = 6.5 CONSISTENT WITH DIABETES STANDARDS OF MEDICAL CARE IN DIABETES-2010 DIABETES CARE, 33(SUPP 1): S1-S61,2010 ESTIMATED AVG GLUCOSE 105 mg/dL 06/02/2024 6:50 PM CDT [facility] 06/02/2024 3:43 PM CDT Dayanara Plaza MD LABORATORY Final Result Performing Organization Address City/State/[facility] Co de Phone Number [facility] [address] [place] [address], documented in this encounter Visit Diagnoses Diagnosis Lipid screening- Primary Screening for lipoid disorders Insomnia due to other mental disorder Anxiety Anxiety state, unspecified Irritable bowel syndrome with both constipation and diarrhea Thyroid disorder screening Screening for thyroid disorder Diabetes mellitus screening Screening for diabetes mellitus Weight gain Abnormal weight gain Vitamin D deficiency Unspecified vitamin D deficiency Need for zskamfrglb-aovbtno-bbcqofube (Tdap) vaccine Need for prophylactic vaccination with combined kcwjeucpbx-rqerjse-kanjpqglh (DTP) vaccine documented in this encounter Additional Health Concerns Assessment Noted Time PHQ-9 Depression Total Score: 0 04/03/20 24 10:56 AM CDT documented as of this encounter Care Teams Performance Engineer Relationship Specialty [place] [address] [facility]. [address] [place] [address] PCP - General FAMILY PRACTICE 03/01/23 Perez Cervantes MD [address] [place] [address] RHEUMATOLOGY 09/02/23 Adriana Ma MD [address] [place] [address] Referring Physician ALLERGY 09/02/23 documented as of this encounter
--- OUTSIDE RECORDS SUMMARY | 2024-11-13 17:52 | XMS_ITS | Encounter Summary ---
Author Organization [facility] Address [address] [place] [address]. [place] [address] [place] [address] Care Team Providers Care Vocal Artist Name Role Phone Dayanara Plaza MD Primary Care Provider [phone] Perez Cervantes MD Unavailable Adriana Ma MD Unavailable [phone] Reason for Visit * Auth/Cert (Routine) Specialty Diagnoses / Procedures Referred By Chalino bazan Referred To Contact Diagnoses PLANTAR FASCITIS Procedures ENDOSCOPIC PLANTAR FASCIA RELEASE RIGHT FOOT Rhiannon Lombardi DPM [address] [address] Phone: tel: fax: Referral ID Status Reason Start Date Expiration Date Visits Re quested Visits Authorized [id number] 1 1 Encounter Details Date Type Department Care Team (Late st Contact Info) Description 09/10/2023 10:37 AM CDT - 09/10/2023 11:48 AM CDT Surgery [facility] [place] [address] Rhiannon Lombardi DPM [address] [phone] ENDOSCOPIC PLANTAR FASCIA RELEASE RIGHT FOOT Surgery [...] Master's degree (e.g., MA, MS, Howard, MEd, QUAL RESEARCH MANAGER, KEKE) 12/21/2018 Comments No Sex and [...] Care Everywhere. * Plantar Fasciotomy Discharge Instructions (Cook Islander) * Surgical Wound Discharge Instructions ([place] Islander) documented in this encounter Medications at [...] mouth 2 (two) times daily. 11/24/2021 4 Reading-3 Fatty Acids (FISH OIL) 1200 MG Cap [...] performed by Niall Matute MD at [facility] GI EYE SURGERY 2020 cataract extraction LAMINECTOMY,LUMBAR SEPTOPLASTY ALL: Allergies Allergen Reactions Levofloxacin Nausea and Vomiting, Nausea Only, Hallucinations and Other (see comment) hallucinations Other reaction(s): Other hallucinations MEDS: Current: ceFAZolin 2 g Intravenous Thermal Cutting Tracer Machine Operator to OR scopolamine 1 patch Transdermal Q72H Current Facility-Administered Medications: ceFAZolin (ANCEF) 2 g in NS 100 mL IVPB, 2 g, Intravenous, Thermal Cutting Tracer Machine Operator to OR, Rhiannon Lombardi DPM scopolamine (TRANSDERM-SCOP) 1 MG/3DAYS patch 1 patch, 1 patch, Transdermal, Q72H, Osiel Sahu MD, 1 patch at 09/10/23 0850 Social History Socioeconomic History Marital status: Spouse name: Cl Number of children: 4 Highest education level: Master's degree (e.g., MA, MS, Howard, MEd, QUAL RESEARCH MANAGER, KEKE) 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 Signature/Date: RHIANNON LOMBARDI #[id number] /DORIS TAL LIBRARIAN * OR MjOp - Hilaria Powers CNP - 09/02/2023 12:59 PM CDT Chart reviewed. Per phone interview, patient denies any SOB/CP with 2 FOS or recent changes in activity tolerance in past 6 months. Per phone interview, patient denies having a retail shift supervisor. Recent EKG copied. EKG 09/01/23 SINUS RHYTHM [...] EKG - 09/01/23 Do you see a retail shift supervisor? Who is it? No Covid vaccinated and [...] Contact Info) Description 11/14/2024 8:00 AM DIGITAL LIBRARIAN Office Visit [facility] Medical [facility] Multispecialty Care - [facility] [address] [facility], [address] [place] [address] Montserrat Oliver NP 3 [facility] [address] [place] [address] 12/06/2024 9:30 AM DIGITAL LIBRARIAN Appointment [facility] [address] [place] [address] [place] [address] [address] [place] [phone] 03/02/2025 3:20 PM CDT Office Visit [facility] Medical Group Family & Internal Medicine - [place] [address] [place] [address] [place] [address] [address] [place] [phone] documented as of this encounter Procedures Procedure [...] (COMPLETED) 2 g, Intravenous, at 200 mL/hr, trimmer machine operator to O.R., 1 dose, First dose on [...] documented as of this encounter Care Teams Vocal Artist Relationship Specialty [place] [address] [facility] [place] [address] PCP - General FAMILY PRACTICE 03/01/23 Perez Cervantes MD [address] [place] [phone] RHEUMATOLOGY 09/02/23 Adriana Ma MD [address] [place] [address] Referring Physician ALLERGY 09/02/23 documented as of this encounter
--- OUTSIDE RECORDS SUMMARY | 2024-11-13 17:52 | XMS_ITS | Encounter Summary ---
Author Organization [facility] Address [address] [place] [address]. [place] [address] [place] [address] Care Team Providers Care Rotary Envelope Machine Operator Name Role Phone Dayanara Plaza MD Primary Care Provider [phone] Perez Cervantes MD Unavailable Adriana Ma MD Unavailable [phone] Reason for Visit * Auth/Cert (Routine) Specialty Diagnoses / Procedures Referred By Chalino t Referred To Contact Diagnoses PLANTAR FASCITIS Procedures ENDOSCOPIC PLANTAR FASCIA RELEASE RIGHT FOOT Riley Thompson, IHSAN [address] [facility] [address] [place] [address] Phone: tel: fax: Referral ID Status Reason Start Date Expiration Date Visits Re quested Visits Authorized [id number] 1 1 Encounter Details Date Type Department Care Team (Late st Contact Info) Description 09/10/2023 10:46 AM CDT Anesthesia Event [facility] OR [address] [place] [address] Osiel Sahu MD [id number] [place], [place] [phone] (Work) Hilaria Powers CNP [address] [place] [address] Anesthesia Record Procedure Summary Procedure Name Responsible [...] care under the direct supervision of the DIRECTOR OF MUSIC THERAPY. DIRECTOR OF MUSIC THERAPY remains present for continuous supervision of the [...] Master's degree (e.g., MA, MS, Howard, MEd, DEPUTY OF COUNTER INTELLIGENCE, KEKE) 12/21/2018 Comments No Sex and Gender [...] 09/10/2023 11:51 AM CDT [facility] Procedure(s): ENDOSCOPIC PLANTAR FASCIA RELEASE RIGHT [...] 09/10/2023 11:41 AM CDT [facility]s): ENDOSCOPIC PLANTAR FASCIA RELEASE RIGHT [...] 09/10/2023 11:34 AM CDT Anesthesia Post-op Note [facility] Procedure(s): ENDOSCOPIC PLANTAR FASCIA RELEASE RIGHT FOOT [...] Neuro/Psych (+) depression, anxiety Comments: Vesovegal syncopy- infusion nurse evaluated no indication for stress test, normal [...] st Contact Info) Description 11/14/2024 8:00 AM BARKER OPERATOR Office Visit [facility] Medical [facility] Multispecialty Care - [facility] 3 [facility], [address] [place] [phone] Montserrat Oliver NP 3 [facility] [address] [place] [address] 12/06/2024 9:30 AM BARKER OPERATOR Appointment [facility] [address] [place] [address] [place] [address] [place] [address] 03/02/2025 3:20 PM CDT Office Visit [facility] Medical [facility] Family & Internal Medicine - [place] [address] [place] [address] [place] [address] [facility] [address] [place] [address] documented as of this encounter Visit Diagnoses Not on filedocumented in this encounter Administered Medications Inactive Administered Medications - up to 3 most recent administrations Medication Order MAR Action Action Date Dose Rate Site ceFAZolin (ANCEF) 2 g in NS 100 mL IVPB 2 g, Intravenous, at 200 mL/hr, surgery aid to O.R., 1 dose, First dose on [...] documented as of this encounter Care Teams Rotary Envelope Machine Operator Relationship Specialty Start [place] [address] [facility] [address] [place] [address] PCP - General FAMILY PRACTICE 03/01/23 Perez Cervantes MD [address] [place] [phone] RHEUMATOLOGY 09/02/23 Adriana Ma MD [address] [place] [address] Referring Physician ALLERGY 09/02/23 documented as of this encounter
--- OUTSIDE RECORDS SUMMARY | 2024-11-13 17:52 | XMS_ITS | Encounter Summary ---
Author Organization [facility] Address [address] [place] [address]. [place] [address] [place] [address] Care Team Providers Care Auto Leasing Manager Name Role Phone Dayanara Plaza MD Primary Care Provider [phone] Perez Cervantes MD Unavailable Adriana Ma MD Unavailable [phone] Encounter Details Date Type Department Care Team (Late st Contact Info) Description 11/19/2023 Global Acquisition Partnerst Message Enc [facility] Medical Group Family & Internal Medicine [facility] [address] [place] [phone] Dayanara Plaza [place] [address] [place] [address]. [address] [place] [address] Still worried Social History Tobacco [...] Master's degree (e.g., MA, MS, Howard, MEd, CARTON STAPLER, KEKE) 12/21/2018 Comments No Sex and Gender [...] st Contact Info) Description 11/14/2024 8:00 AM WEB CONTENT SPECIALIST Office Visit [facility] Multispecialty Care - [facility] 3 [facility], [address] [place] [phone] Montserrat Oliver NP 3 [facility] [address] [place] [address] 12/06/2024 9:30 AM WEB CONTENT SPECIALIST Appointment [facility] Open MRI [address] [place] [address] [place] [address] [facility] the [address]. [address] [place] [phone] 03/02/2025 3:20 PM CDT Office Visit [facility] Family & Internal Medicine - [address] [phone] [place] [address] [address] [place] [address] documented as of this encounter Visit Diagnoses Not on filedocumented in this encounter Additional Health Concerns Infection Onset Date Last Indicated Resolved Time COVID-19 Rule Out 04/03/2024 04/03/2024 04/03/2024 11:38 AM CDT Assessment Noted Time PHQ-9 Depression Total Score: 2 05/27/20 11:36 AM CDT documented as of this encounter Care Teams Auto Leasing Manager Relationship Specialty [place] [address] [address] [place] [address] PCP - General FAMILY PRACTICE 03/01/23 Perez Cervantes MD [address] [place] [phone] RHEUMATOLOGY 09/02/23 Adriana Ma MD [address] [place] [address] Referring Physician ALLERGY 09/02/23 documented as of this encounter
--- OUTSIDE RECORDS SUMMARY | 2024-11-13 17:52 | XMS_ITS | Encounter Summary ---
Author Organization [facility] Address [address] [place] [address]. [place] [address] [place] [address] Care Team Providers Care Health Commissioner Name Role Phone Dayanara Plaza MD Primary Care Provider [phone] Perez Cervantes MD Unavailable Adriana Ma MD Unavailable [phone] Reason for Visit * Reason Comments Cough Acute cough x 1 week thinks bronchitis Encounter Details Date Type Department Care Team (Late st Contact Info) Description 04/03/2024 11:00 AM CDT Office Visit [facility] Medical Group Family & Internal Medicine [address] [address] Lida Bell, [address], [address] [place] [address] Cough (Acute cough x 1 week [...] Master's degree (e.g., MA, MS, Howard, MEd, TABLE SAW OPERATOR, KEKE) 12/21/2018 Comments No Sex and [...] this encounter Progress Notes * Lida Bell, FLUE BLOWER-BC - 04/03/2024 11:00 AM CDT Reason for [...] has been visiting with her daughter in [place] this past week. She has been taking [...] Inflammatory arthritis Plantar fasciitis RA (rheumatoid arthritis) ([facility]) Wears glasses Past Surgical History: Procedure Laterality Date CHOLECYSTECTOMY COLONOSCOPY N/A 03/17/2021 COLONOSCOPY-NORMAL performed by Niall Matute MD at [facility] GI COLONOSCOPY STOMA DX INCLUDING [...] organism J20.9 ACUTE BRONCHITIS 3. Immunocompromised patient ([facility]) D84.9 PATIENT IMMUNOCOMPROMISED The patient's symptoms suggest [...] st Contact Info) Description 11/14/2024 8:00 AM PIE CHEF Office Visit [facility] Multispecialty Care - [facility] 3 [facility], [address] [place] [phone] Montserrat Oliver NP 3 [facility] [address] [place] [address] 12/06/2024 9:30 AM PIE CHEF [facility]oint[address] [facility] Open MRI [address] [place] [address] [place] [address] [facility] [address] [place] [address] 03/02/2025 3:20 PM CDT Office Visit [facility] Family & Internal Medicine - [address] [phone] [place] [address] [facility]. [address] [place] [phone] documented as of this encounter Procedures Procedure Name Priority Date/Time Associated Diagnosis Comments CORONAVIRUS (COVID-19) INFLUENZA A & B ANTIGEN IA PANEL Routine 04/03/2024 Suspected COVID-19 virus infection documented in this encounter Results * CORONAVIRUS (COVID-19) INFLUENZA A & B ANTIGEN IA PANEL (04/03/2024) CORONAVIRUS ANTIGEN IA NEGATIVE NEGATIVE [id number], [place] INFLUENZA A NEGATIVE NEGATIVE [id number], [place] INFLUENZA B NEGATIVE NEGATIVE [id number], [place] Internal Control: VALID VALID -[id number] [place] NASAL STRUCTURE / Unknown 04/03/2024 Lida Bell FLUE BLOWER-BC MICROBIOLOGY - GENERAL O RDERABLES Final Result -[id number] [address], [place] [address] [place] [address], documented in this encounter Visit Diagnoses Diagnosis Suspected COVID-19 virus infection- Primary Acute bronchitis, unspecified organism Immunocompromised patient ([facility]) Unspecified immunity deficiency documented in this encounter Additional Health Concerns Infection Onset Date Last Indicated Resolved Time COVID-19 Rule Out 04/03/2024 04/03/2024 04/03/2024 11:38 AM CDT Assessment Noted Time PHQ-9 Depression Total Score: 0 04/03/20 24 10:56 AM CDT documented as of this encounter Care Teams Health Commissioner Relationship Specialty Start [place] [address] [place], [place] [phone] PCP - General FAMILY PRACTICE 03/01/23 Perez Cervantes MD [address] DIV OF RHEUMATOLOGY [place] [phone] RHEUMATOLOGY 09/02/23 Adriana Ma MD [address] [place] [address] Referring Physician ALLERGY 09/02/23 documented as of this encounter
--- OUTSIDE RECORDS SUMMARY | 2024-11-13 17:52 | XMS_ITS | Encounter Summary ---
Author Organization [facility] Address [address] [place] [address]. [place] [address] [place] [address] Care Team Providers Care Advertising Clerk Name Role Phone Dayanara Plaza MD Primary Care Provider [phone] Perez Cervantes MD Unavailable Adriana Ma MD Unavailable [phone] Encounter Details Date Type Department Care Team [...] Master's degree (e.g., MA, MS, Howard, MEd, ASSEMBLER RUBBER FOOTWEAR, KEKE) 12/21/2018 Comments No Sex and Gender [...] st Contact Info) Description 11/14/2024 8:00 AM READING INTERVENTIONIST Office Visit [facility] Multispecialty Care - [facility] 3 [facility], [address] [place] [address] Montserrat Oliver NP 3 [facility] [address] [place] [address] 12/06/2024 9:30 AM READING INTERVENTIONIST Appointment [facility] Open MRI [address] [place] [address] [place] [address] [address] [place] [address] 03/02/2025 3:20 PM CDT Office Visit [facility] Family & Internal Medicine - [place] [address] [place] [phone] [place] [address] [facility] [address] [place] [address] documented as of this encounter Visit Diagnoses Not on filedocumented in this encounter Additional Health Concerns Assessment Noted Time PHQ-9 Depression Total Score: 0 04/03/20 24 10:56 AM CDT documented as of this encounter Care Teams Advertising Clerk Relationship Specialty Start Date End Date Dayanara Plaza MD [address] [place] [address] Ave. [address] [place] [address] PCP - General FAMILY PRACTICE 03/01/23 Perez Cervantes MD [address] DIV OF [place]UM[place] [phone] RHEUMATOLOGY 09/02/23 Adriana Ma MD [address] [place] [address] Referring Physician ALLERGY 09/02/23 documented as of this encounter
--- OUTSIDE RECORDS SUMMARY | 2024-11-13 17:52 | XMS_ITS | Encounter Summary ---
Author Organization [facility] Address [address] [place] [address]. [place] [address] [place] [address] Care Team Providers Care Director Process Engineering Name Role Phone Dayanara Plaza MD Primary Care Provider [phone] Perez Cervantes MD Unavailable Adriana Ma MD Unavailable [phone] Reason for Visit * Auth/Cert Specialty Diagnoses / Procedures Referred By Chalino t Referred To Contact Diagnoses SBO Procedures GENERAL Sydni Sarkar, DO [address] [place] [address] Phone: tel: fax: Referral ID Status Reason Start Date Expiration Date Visits Re quested Visits Authorized [id number] 1 Encounter Details Date Type Department Care Team (Late st Contact Info) Description 05/23/2024 2:35 PM CDT - 05/23/2024 5:10 PM CDT Surgery [facility] OR [address] [place] [address] Lian Sauer MD [facility] [address] [address] LAPAROTOMY EXPLORATORY, LYSIS OF ADHESIONS [...] from your doctor or pharmacy? Never 05/23/2024 [facility] Utilities Answer Date Recorded In [...] Recorded Patient Health Questionnaire-2 Score 0 04/03/2024 [facility] [place] of Occupat ional Health - Occupational Stress [...] any time in the past 12 m [facility], were you homeless or living in a chcf (including now)? No 05/23/2024 Education Answer Date Recorded What is the highest level of school you have completed or the highest degree you have received? Master's degree (e.g., MA, MS, Howard, MEd, MECHANICAL SPREADER OPERATOR, KEKE) 12/21/2018 Comments No Sex and [...] rheumatoid arthritis, and depression/anxiety who presented to [facility] in [place] emergency room with ongoing abdominal pain, nausea, [...] Patient had an NG tube placed at [facility] ER and patient states she is [...] Hospital Course: SBO Ms. Pascual transferred from [facility] after 3 consecutive ER visits for worsening abd pain. CT A/P (05/23): mid to distal small bowel obstruction NG placed in ER at [facility] NPO/IVF Pain Control - monitor for [...] input(s): PH , PCO2 , PO2 , [id number] , BICARBWB , BASEDEFICIT , BASEEXCESS in [...] obstruction COMPARISON: CT 05/23/2024 2:40 AM TECHNIQUE: Healthcare Market Consultant image of the abdomen was obtained, oral contrast was administered by NG tube. Images of the abdomen were obtained 20, 4 0, 60, 90, 120, 180 minutes after administration. FINDINGS: Healthcare Market Consultant image demonstrates moderate smallbowel dilatation. NG tube [...] distal fundus or proximal body of stomach. monitoring engineer leads overlie the chest and abdomen. [...] AM ECG 12 lead Result Date: 05/22/2024 [facility] Test Date: 2024-05-22 Pat Name: [facility] Department: Room: EXAM 505 Gender: Female Cook Tortilla: : 1965 Requested By: NIMISHA RUANO Order Number: [id number] Reading MD: Guanako Hancock Measurements Intervals [place] Rate: 73 P: 82 TX: 168 QRS: 58 QRSD: 89 T: 48 [...] Everywhere. * Lysis of Adhesions Discharge Instructions (Bermudian) documented in this encounter Medications at Time [...] this encounter Progress Notes * Nessa Pan LIFESTYLE BLOCK FARMER - 05/30/2024 10:22 AM CDT Patient discharged [...] note were not included. General Surgery Progress Note-[facility] Hans Pascual is an 59-year-old [...] note were not included. General Surgery Progress Note-[facility] Hans Pascual is an 59-year-old [...] new skin breakdown Outcome: Not Progressing * Snoya Cantrell DO - 05/29/2024 7:16 AM CDT [...] at 05/28/242028 acetaminophen, albuterol sulfate HFA, HYDROcodone-acetaminophen, fvostvlbb-cjkvzgra-eqtjrmxyxxf, morphine, morphine, ondansetron, ondansetron, phenol Labs, Imaging, [...] input(s): PH , PCO2 , PO2 , [id number] , BICARBWB , BASEDEFICIT , BASEEXCESS in [...] obstruction COMPARISON: CT 05/23/2024 2:40 AM TECHNIQUE: Healthcare Market Consultant image of the abdomen was obtained, oral contrast was administered by NG tube. Images of the abdomen were obtained 20, 4 0, 60, 90, 120, 180 minutes after administration. FINDINGS: Healthcare Market Consultant image demonstrates moderate smallbowel dilatation. NG tube [...] distal fundus or proximal body of stomach. monitoring engineer leads overlie the chest and abdomen. [...] AM ECG 12 lead Result Date: 05/22/2024 [facility] Test Date: 2024-05-22 Pat Name: [facility] Department: 85 Room: EXAM 505 Gender: Female Cook Tortilla: : 1965 Requested By: NIMISHA RUANO Order Number: [id number] Reading MD: Guanako Hancock Measurements Intervals [place] Rate: 73 P: 82 TX: 168 QRS: 58 QRSD: 89 T: 48 [...] & Plan SBO Ms. Pascual transferred from [facility] after 3 consecutive ER visits for worsening abd pain. CT A/P (05/23): mid to distal small bowel obstruction NG placed in ER at [facility] NPO/IVF Pain Control - monitor for [...] 05/28/24 1035 acetaminophen, albuterol sulfate HFA, HYDROcodone-acetaminophen, ajubluajs-nvihtrnu-euzjzpzmrbn, morphine, morphine, ondansetron, ondansetron, phenol Labs, Imaging, [...] input(s): PH , PCO2 , PO2 , [id number] , BICARBWB , BASEDEFICIT , BASEEXCESS in [...] obstruction COMPARISON: CT 05/23/2024 2:40 AM TECHNIQUE: Healthcare Market Consultant image of the abdomen was obtained, oral contrast was administered by NG tube. Images of the abdomen were obtained 20, 4 0, 60, 90, 120, 180 minutes after administration. FINDINGS: Healthcare Market Consultant image demonstrates moderate smallbowel dilatation. NG tube [...] distal fundus or proximal body of stomach. monitoring engineer leads overlie the chest and abdomen. [...] AM ECG 12 lead Result Date: 05/22/2024 [facility] Test Date: 2024-05-22 [facility] Department: 85 Room: EXAM 505 Gender: Female Cook Tortilla: : 1965 Requested By: NIMISHA RUANO Order Number: [id number] Reading MD: Guanako Hancock Measurements Intervals [place] Rate: 73 P: 82 TX:168 QRS: 58 QRSD: 89 T: 48 QT: [...] & Plan SBO Ms. Pascual transferred from [facility] after 3 consecutive ER visits for worsening abd pain. CT A/P (05/23): mid to distal small bowel obstruction NG placed in ER at [facility] NPO/IVF Pain Control - monitor for [...] input(s): PH , PCO2 , PO2 , [id number] , BICARBWB , BASEDEFICIT , BASEEXCESS in [...] obstruction COMPARISON: CT 05/23/2024 2:40 AM TECHNIQUE: Healthcare Market Consultant image of the abdomen was obtained, oral contrast was administered by NG tube. Images of the abdomen were obtained 20, 4 0, 60, 90, 120, 180 minutes after administration. FINDINGS: Healthcare Market Consultant image demonstrates moderate smallbowel dilatation. NG tube [...] distal fundus or proximal body of stomach. monitoring engineer leads overlie the chest and abdomen. [...] 12 lead Result Date: 05/22/2024 [facility] [place] Test Date: 2024-05-22 [facility] Department: 85 Room: EXAM 505 Gender: Female Cook Tortilla: : 1965 Requested By: NIMISHA RUANO Order Number: [id number] Reading MD: Guanako Hancock Measurements Intervals [place] Rate: 73 P: 82 TX: 168 QRS: 58 QRSD: 89 T: 48 [...] & Plan SBO Ms. Pascual transferred from [facility] after 3 consecutive ER visits for worsening abd pain. CT A/P (05/23): mid to distal small bowel obstruction NG placed in ER at [facility] NPO/IVF Pain Control - monitor for [...] DO 05/27/2024 7:26 AM * Nessa Pan, LIFESTYLE BLOCK FARMER - 05/26/2024 2:20 PM CDT 05/26 Patient with positive flatus, no BM yet, diet to full liquids. Patient has been ambulating in halls without difficulty, plans to return home with spouse at discharge, currently declining home health cw * Nessa Pan LIFESTYLE BLOCK FARMER - 05/26/2024 2:20 PM CDT Positive flatus, [...] input(s): PH , PCO2 , PO2 , [id number] , BICARBWB , BASEDEFICIT , BASEEXCESS in [...] obstruction COMPARISON: CT 05/23/2024 2:40 AM TECHNIQUE: Healthcare Market Consultant image of the abdomen was obtained, oral contrast was administered by NG tube. Images of the abdomen were obtained 20, 4 0, 60, 90, 120, 180 minutes after administration. FINDINGS: Healthcare Market Consultant image demonstrates moderate smallbowel dilatation. NG tube [...] distal fundus or proximal body of stomach. monitoring engineer leads overlie the chest and abdomen. [...] AM ECG 12 lead Result Date: 05/22/2024 [facility] Test Date: 2024-05-22 Pat Name: [facility] Department: 85 Room: EXAM 505 Gender: Female Cook Tortilla: : 1965 Requested By: NIMISHA RUANO Order Number: [id number] Reading MD: Guanako Hancock Measurements Intervals [place] Rate: 73 P: 82 TX: 168 QRS: 58 QRSD: 89 T: 48 [...] & Plan SBO Ms. Pascual transferred from [facility] after 3 consecutive ER visits for worsening abd pain. CT A/P (05/23): mid to distal small bowel obstruction NG placed in ER at [facility] NPO/IVF Pain Control - monitor for [...] moisture exposure Outcome: Progressing * Nessa Pan LIFESTYLE BLOCK FARMER - 05/25/2024 2:50 PM CDT 05/25 NG d/c'd today, patient on clear liquid diet, awaiting return of bowel function. Patient ambulating in halls cw * Nessa Pan LIFESTYLE BLOCK FARMER - 05/25/2024 2:50 PM CDT NG d/c'd , clear liquid diet, awaiting return of bowel function 05/25/24 1443 Interdisciplinary Group Conference Team Members Present Physician;Case/Care [...] input(s): PH , PCO2 , PO2 , [id number] , BICARBWB , BASEDEFICIT , BASEEXCESS in [...] obstruction COMPARISON: CT 05/23/2024 2:40 AM TECHNIQUE: Healthcare Market Consultant image of the abdomen was obtained, oral contrast was administered by NG tube. Images of the abdomen were obtained 20, 4 0, 60, 90, 120, 180 minutes after administration. FINDINGS: Healthcare Market Consultant image demonstrates moderate smallbowel dilatation. NG tube [...] distal fundus or proximal body of stomach. monitoring engineer leads overlie the chest and abdomen. [...] AM ECG 12 lead Result Date: 05/22/2024 [facility] Test Date: 2024-05-22 [facility] Department: 85 Room: EXAM [facility] Gender: Female Cook Tortilla: : 1965 Requested By: NIMISHA RUANO Order Number: [id number] Reading MD: Guanako Hancock Measurements Intervals [place] Rate: 73 P: 82 TX:168 QRS: 58 QRSD: 89 T: 48 QT: [...] & Plan SBO Ms. Pascual transferred from [facility] after 3 consecutive ER visits for worsening abd pain. CT A/P (05/23): mid to distal small bowel obstruction NG placed in ER at [facility] NPO/IVF Pain Control - monitor for [...] Reduced Risk for Falls/Injury Outcome: Progressing * Nsesa Pan, LIFESTYLE BLOCK FARMER - 05/24/2024 2:03 PM CDT Patient lives [...] of major lifestyle changes, including change in usp living environment No Complex Family concerns No [...] Available Adequate Resources Yes * Nessa Pan LIFESTYLE BLOCK FARMER - 05/24/2024 1:55 PM CDT Awaiting bowel function return, GEORGE VEGA 05/24/24 8745 Interdisciplinary Group Conference Team Members Present Physician;Case/Care [...] or lesions Medications ceFAZolin 2 g Intravenous Farmworker Fur to OR heparin (porcine) 5,000 Units Subcutaneous [...] input(s): PH , PCO2 , PO2 , [id number] , BICARBWB , BASEDEFICIT , BASEEXCESS in [...] obstruction COMPARISON: CT 05/23/2024 2:40 AM TECHNIQUE: Healthcare Market Consultant image of the abdomen was obtained, oral contrast was administered by NG tube. Images of the abdomen were obtained 20, 4 0, 60, 90, 120, 180 minutes after administration. FINDINGS: Healthcare Market Consultant image demonstrates moderate smallbowel dilatation. NG tube [...] distal fundus or proximal body of stomach. monitoring engineer leads overlie the chest and abdomen. [...] AM ECG 12 lead Result Date: 05/22/2024 [facility] Test Date: 2024-05-22 Pat Name: [facility] Department: 85 Room: EXAM [facility] Gender: Female Cook Tortilla: : 1965 Requested By: NIMISHA RUANO Order Number: [id number] Reading MD: Guanako Hancock Measurements Intervals [place] Rate: 73 P: 82 TX: 168 QRS: 58 QRSD: 89 T: 48 [...] & Plan SBO Ms. Pascual transferred from [facility] after 3 consecutive ER visits for worsening abd pain. CT A/P (05/23): mid to distal small bowel obstruction NG placed in ER at [facility] NPO/IVF Pain Control - monitor for [...] rheumatoid arthritis, and depression/anxiety who presented to [facility] in [place] emergency room with ongoing abdominal pain, nausea, [...] Patient had an NG tube placed at [facility] ER and patient states she is [...] Inflammatory arthritis Plantar fasciitis RA (rheumatoid arthritis) ([facility]) Past Surgical History: Procedure Laterality Date CHOLECYSTECTOMY COLONOSCOPY N/A 03/17/2021 COLONOSCOPY-NORMAL performed by Niall Matute MD at [facility] GI COLONOSCOPY STOMA DX INCLUDING COLLJ SPEC SPX AH 9 yrs. 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 monitoring engineer leads overlie the chest and abdomen. [...] & PLAN SBO Ms. Pascual transferred from [facility] after 3 consecutive ER visits for worsening abd pain. CT A/P (05/23): mid to distal small bowel obstruction NG placed in ER at [facility] NPO/IVF Pain Control - monitor for [...] for this patient. Patient seen and examined. LEGAL RECRUITER/PA note reviewed. General: . Awake, alert, No acute distress CV: RRR, no murmur noted Pulmonary: Clear to auscultation. Nonlabored. No wheezing/rhonchi/crackles Abdomen: + mildly distended, diffusely tender to palpation Extremities: No significant edema Neuro: alert and oriented; Moves all extremities. No focal neurological deficits Agree with plan as outlined above. Transferred to [facility] for SBO. Surgery consulted, [...] presents to the hospital as transfer from [facility] in [place] for evaluation of small bowel obstruction as [...] Inflammatory arthritis Plantar fasciitis RA (rheumatoid arthritis) (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 monitoring engineer leads overlie the chest and abdomen. [...] st Contact Info) Description 11/14/2024 8:00 AM BOWLING BALL ENGRAVER Office Visit [facility] Multispecialty Care - [facility] 3 [facility], [address] [place] [phone] Montserrat Oliver NP 3 [facility] [address] [place] [id number] 12/06/2024 9:30 AM BOWLING BALL ENGRAVER Appointment [facility] Open MRI [address] [place] [address] [place] [address] [facility]. [address] [place] [address] [phone] 03/02/2025 3:20 PM CDT Office Visit [facility] Family & Internal Medicine - [address] [phone] [place] [address] [facility] [place] [phone] documented as of this encounter Procedures Procedure [...] W/DIFF AUTOMATED (05/30/2024 6:46 AM CDT) Pathologist [facility] WBC 4.04(L) 4.5 - 11.0 x10'3/uL 05/30/2024 7:21 AM CDT [facility] RBC 3.50(L) 4.20 - 5.40 x10'6/uL 05/30/2024 7:21 AM CDT [facility] HGB 11.2(L) 12.0 - 16.0 G/DL 05/30/2024 7:21 AM CDT [facility] HCT 34.7(L) 38.0 - 48.0 % 05/30/2024 7:21 AM CDT [facility] MCV 99.1(H) 81.0 - 99.0 FL 05/30/2024 7:21 AM CDT [facility] MCH 32.0(H) 27.0 - 31.0 PG 05/30/2024 7:21 AM CDT [facility] MCHC 32.3 32.0 - 36.0 G/DL 05/30/2024 7:21 AM CDT [facility] RDW 14.6(H) 11.5 - 14.5 % 05/30/2024 7:21 AM CDT [facility] PLT 255 130 - 400 x10'3/uL 05/30/2024 7:21 AM CDT [facility] MPV 10.7 9.3 - 12.2 FL 05/30/2024 7:21 AM CDT [facility] DIFFERENTIAL TYPE MANUAL DIFFERENTIAL 05/30/2024 7:30 AM CDT [facility] SEG NEUTROPHILS 65 % 7:30 AM CDT [facility] LYMPHOCYTES 23 % 05/30/2024 7:30 AM CDT [facility] MONOCYTES 9 % 05/30/2024 7:30 AM CDT [facility] EOSINOPHILS 3 % 05/30/2024 7:30 AM CDT [facility] ABS. NEUTROPHILS 2.63 1.80 - 7.70 x10'3/uL 05/30/2024 7:30 AM CDT [facility] ABS. LYMPHOCYTES 0.93(L) 1.00 - 4.80 x10'3/uL 05/30/2024 7:30 AM CDT [facility] ABS. MONOCYTES 0.36 0.24 - 0.86 x10'3/uL 05/30/2024 7:30 AM CDT [facility] ABS. EOSINOPHILS 0.12 0.04 - 0.36 x10'3/uL 05/30/2024 7:30 AM CDT [facility] RBC MORPHOLOGY RBC MORPHOLOGY APPEARS NORMAL. SLIDE REVIEWED. 05/30/2024 7:30 AM CDT [facility] PLT EST. ADEQUATE 05/30/2024 7:30 AM CDT [facility] 05/30/2024 6:46 AM CDT us Sonya Cantrell DO LABORATORY Final Res ult [facility] [address] [place] [address], * (ABNORMAL) BASIC METABOLIC PANEL (05/30/2024 6:46 AM CDT) [facility] GLUCOSE 95 70 - 99 MG/DL 05/30/2024 7:29 AM CDT [facility] BUN 3(L) 7 - 18 MG/DL 05/30/2024 7:29 AM CDT [facility] CREATININE S/P/B 0.57 0.55 - 1.02 MG/DL 05/30/2024 7:29 AM CDT [facility] SODIUM S/P/B 142 136 - 145 MMOL/L 05/30/2024 7:29 AM CDT [facility] POTASSIUM S/P/B 3.5 3.5 - 5.1 MMOL/L 05/30/2024 7:29 AM T [facility] CHLORIDE S/P/B 113(H) 100 - 108 MMOL/L 05/30/2024 7:29 AM CDT [facility] CO2 22.1 21 - 32 MMOL/L 05/30/2024 7:29 AM T [facility] CALCIUM S/P/B 9.2 8.5 - 10.1 MG/DL 05/30/2024 7:29 AM T [facility] ANION GAP 6.9 5 - 15 MMOL/L 05/30/2024 7:29 AM T [facility] BUN CREATININE RATIO 5.3(L) 6 - 26 05/30/2024 7:29 AM T [facility] GFR ESTIMATE >90 >90 ML/MIN/1.7 3 M2 05/30/2024 7:29 AM T [facility] Comment: NOTE: eGFR is not [...] LABORATORY Final Res ult Performing Organization Address City/[facility]/ZIP Co de Phone Number [facility] [address] [place] [address], [place] [phone] * MAGNESIUM (05/29/2024 5:15 AM CDT) MAGNESIUM 2.0 1.8 - 2.4 MG/DL 05/29/2024 7:55 AM CDT [facility] 05/29/2024 5:15 AM CDT Sonya Cantrell DO LABORATORY Final Res ult Performing Organization Address [facility] de Phone Number [facility] [address] [place] [address], [place] [phone] * (ABNORMAL) CBC W/DIFF AUTOMATED (05/29/2024 5:15 AM CDT) WBC 4.41(L) 4.5 - 11.0 x10'3/uL 05/29/2024 5:42 AM CDT [facility] RBC 3.17(L) 4.20 - 5.40 x10'6/uL 05/29/2024 5:42 AM CDT [facility] HGB 10.3(L) 12.0 - 16.0 G/DL 05/29/2024 5:42 AM CDT [facility] HCT 30.6(L) 38.0 - 48.0 % 05/29/2024 5:42 AM CDT [facility] MCV 96.5 81.0 - 99.0 FL 05/29/2024 5:42 AM CDT [facility] MCH 32.5(H) 27.0 - 31.0 PG 05/29/2024 5:42 AM CDT [facility] MCHC 33.7 32.0 - 36.0 G/DL 05/29/2024 5:42 AM CDT [facility] RDW 14.2 11.5 - 14.5 % 05/29/2024 5:42 AM CDT [facility] PLT 208 130 - 400 x10'3/uL 05/29/2024 5:42 AM CDT [facility] MPV 10.3 9.3 - 12.2 FL 05/29/2024 5:42 AM CDT [facility] DIFFERENTIAL TYPE AUTOMATED DIFFERENTIAL 05/29/2024 5:42 AM CDT [facility] NEUTROPHILS % 59.2 % 05/29/2024 5:42 AM CDT [facility] LYMPHOCYTES % 24.7 % 05/29/2024 5:42 AM CDT [facility] MONOCYTES % 13.4 % 05/29/2024 5:42 AM CDT [facility] EOSINOPHILS 2.3 % 05/29/2024 5:42 AM CDT [facility] BASOPHILS 0.2 % 05/29/2024 5:42 AM CDT [facility] IMMATURE GRANS % 0.2 % 05/29/20 5:42 AM CDT [facility] ABS. NEUTROPHILS 2.61 1.80 - 7.70 x10'3/uL 05/29/2024 5:42 AM CDT [facility] ABS. LYMPHOCYTES 1.09 1.00 - 4.80 x10'3/uL 05/29/2024 5:42 AM CDT [facility] ABS. MONOCYTES 0.59 0.24 - 0.86 x10'3/uL 05/29/2024 5:42 AM CDT [facility] ABS. EOSINOPHILS 0.10 0.04 - 0.36 x10'3/uL 05/29/2024 5:42 AM CDT [facility] ABS. BASOPHILS 0.01 0.01 - 0.08 x10'3/uL 05/29/2024 5:42 AM CDT [facility] ABS. IMMATURE GRANULOCYTES 0.01 0.00 - 0.49 x10'3/uL 05/29/2024 5:42 AM CDT [facility] 05/29/2024 5:15 AM CDT Sonya Cantrell DO LABORATORY Final Res ult [facility] [address] [place] [id number], [place] [phone] * (ABNORMAL) BASIC METABOLIC PANEL (05/29/2024 5:15 AM CDT) GLUCOSE 80 70 - 99 MG/DL 05/29/2024 5:48 AM CDT [facility] BUN 4(L) 7 - 18 MG/DL 05/29/2024 5:48 AM CDT [facility] CREATININE S/P/B 0.49(L) 0.55 - 1.02 MG/DL 05/29/2024 5:48 AM CDT [facility] SODIUM S/P/B 142 136 - 145 MMOL/L 05/29/2024 5:48 AM CDT [facility] POTASSIUM S/P/B 3.2(L) 3.5 - 5.1 MMOL/L 05/29/2024 5:48 AM CDT [facility] CHLORIDE S/P/B 113(H) 100 - 108 MMOL/L 05/29/2024 5:48 AM CDT [facility] CO2 22.1 21 - 32 MMOL/L 05/29/2024 5:48 AM CDT [facility] CALCIUM S/P/B 8.4(L) 8.5 - 10.1 MG/DL 05/29/2024 5:48 AM CDT [facility] ANION GAP 6.9 5 - 15 MMOL/L 05/29/2024 5:48 AM CDT [facility] BUN CREATININE RATIO 8.2 6 - 26 05/29/2024 5:48 AM CDT [facility] GFR ESTIMATE >90 >90 ML/MIN/1.7 3 M2 05/29/2024 5:48 AM CDT [facility] Comment: NOTE: eGFR is not calculated for patients <18 years of age. This is an estimated GFR calculation using the new CKD EPI creatinine equation without race and so does not require a correction factor for race. This estimated GFR should not be used for calculating drug doses. 05/29/2024 5:15 AM CDT Sonya Cantrell DO LABORATORY Final Res ult [facility] [address] [place] [address], [place] [phone] * CT ABD+PEL W CON (05/28/2024 9:24 AM CDT) Anatomical Region Laterality Modality Abdomen Computed Tomogra phy 05/28/2024 9:30 AM CDT Impressions 05/28/2024 9:32 AM CDT IMPRESSION: 1. Mild diffuse ileus 2. Mild right pleural effusion with concomitant atelectasis Ordered By: ILAN SAUER Interpreted By: Caleb Rodriguez MD, 05/28/2024 [...] - 11.0 x10'3/uL 05/28/2024 5:51 AM CDT [facility] RBC 3.50(L) 4.20 - 5.40 x10'6/uL 05/28/2024 5:51 AM CDT [facility] HGB 11.4(L) 12.0 - 16.0 G/DL 05/28/2024 5:51 AM CDT [facility] HCT 34.0(L) 38.0 - 48.0 % 05/28/2024 5:51 AM CDT [facility] MCV 97.1 81.0 - 99.0 FL 05/28/2024 5:51 AM CDT [facility] MCH 32.6(H) 27.0 - 31.0 PG 05/28/2024 5:51 AM CDT [facility] MCHC 33.5 32.0 - 36.0 G/DL 05/28/2024 5:51 AM CDT [facility] RDW 14.3 11.5 - 14.5 % 05/28/2024 5:51 AM CDT [facility] PLT 217 130 - 400 x10'3/uL 05/28/2024 5:51 AM CDT [facility] MPV 10.5 9.3 - 12.2 FL 05/28/2024 5:51 AM CDT [facility] DIFFERENTIAL TYPE AUTOMATED DIFFERENTIAL 05/28/2024 5:51 AM CDT [facility] NEUTROPHILS % 60.6 % 05/28/2024 5:51 AM CDT [facility] LYMPHOCYTES % 26.3 % 05/28/2024 5:51 AM CDT [facility] MONOCYTES % 10.7 % 05/28/2024 5:51 AM CDT [facility] EOSINOPHILS 2.0 % 05/28/2024 5:51 AM CDT [facility] BASOPHILS 0.2 % 05/28/2024 5:51 AM CDT [facility] IMMATURE GRANS % 0.2 % 05/28/20 5:51 AM CDT [facility] ABS. NEUTROPHILS 2.72 1.80 - 7.70 x10'3/uL 05/28/2024 5:51 AM CDT [facility] ABS. LYMPHOCYTES 1.18 1.00 - 4.80 x10'3/uL 05/28/2024 5:51 AM CDT [facility] ABS. MONOCYTES 0.48 0.24 - 0.86 x10'3/uL 05/28/2024 5:51 AM CDT [facility] ABS. EOSINOPHILS 0.09 0.04 - 0.36 x10'3/uL 05/28/2024 5:51 AM CDT [facility] ABS. BASOPHILS 0.01 0.01 - 0.08 x10'3/uL 05/28/2024 5:51 AM CDT [facility] ABS. IMMATURE GRANULOCYTES 0.01 0.00 - 0.49 x10'3/uL 05/28/2024 5:51 AM CDT [facility] 05/28/2024 5:14 AM CDT us Sonya Cantrell DO LABORATORY Final Res ult [facility] [address] [place] [id number], * (ABNORMAL) BASIC METABOLIC PANEL (05/28/2024 5:14 AM CDT) GLUCOSE 85 70 - 99 MG/DL 05/28/2024 6:07 AM CDT [facility] BUN 5(L) 7 - 18 MG/DL 05/28/2024 6:07 AM CDT [facility] CREATININE S/P/B 0.61 0.55 - 1.02 MG/DL 05/28/2024 6:07 AM CDT [facility] SODIUM S/P/B 140 136 - 145 MMOL/L 05/28/2024 6:07 AM CDT [facility] POTASSIUM S/P/B 3.1(L) 3.5 - 5.1 MMOL/L 05/28/2024 6:07 AM CDT [facility] CHLORIDE S/P/B 109(H) 100 - 108 MMOL/L 05/28/2024 6:07 AM CDT [facility] CO2 26.1 21 - 32 MMOL/L 05/28/2024 6:07 AM CDT [facility] CALCIUM S/P/B 9.1 8.5 - 10.1 MG/DL 05/28/2024 6:07 AM CDT [facility] ANION GAP 4.9(L) 5 - 15 MMOL/L 05/28/2024 6:07 AM CDT [facility] BUN CREATININE RATIO 8.2 6 - 26 05/28/2024 6:07 AM CDT [facility] GFR ESTIMATE >90 >90 ML/MIN/1.7 3 M2 05/28/2024 6:07 AM CDT [facility] Comment: NOTE: eGFR is not calculated for patients <18 years of age. This is an estimated GFR calculation using the new CKD EPI creatinine equation without race and so does not require a correction factor for race. This estimated GFR should not be used for calculating drug doses. 05/28/2024 5:14 AM CDT us Sonya Cantrell DO LABORATORY Final Res ult [facility] [address] [place] [address], [place] [phone] * (ABNORMAL) CBC W/DIFF AUTOMATED (05/27/2024 5:25 AM CDT) WBC 4.54 4.5 - 11.0 x10'3/uL 05/27/2024 6:31 AM CDT [facility] RBC 3.32(L) 4.20 - 5.40 x10'6/uL 05/27/2024 6:31 AM CDT [facility] HGB 10.9(L) 12.0 - 16.0 G/DL 05/27/2024 6:31 AM CDT [facility] HCT 35.1(L) 38.0 - 48.0 % 05/27/2024 6:31 AM CDT [facility] MCV 105.7(H) 81.0 - 99.0 FL 05/27/2024 6:31 AM CDT [facility] MCH 32.8(H) 27.0 - 31.0 PG 05/27/2024 6:31 AM CDT [facility] MCHC 31.1(L) 32.0 - 36.0 G/DL 05/27/2024 6:31 AM CDT [facility] RDW 14.3 11.5 - 14.5 % 05/27/2024 6:31 AM CDT [facility] PLT 192 130 - 400 x10'3/uL 05/27/2024 6:31 AM CDT [facility] MPV 10.2 9.3 - 12.2 FL 05/27/2024 6:31 AM CDT [facility] DIFFERENTIAL TYPE AUTOMATED DIFFERENTIAL 05/27/2024 6:31 AM CDT [facility] NEUTROPHILS % 53.1 % 05/27/2024 6:31 AM CDT [facility] LYMPHOCYTES % 32.2 % 05/27/2024 6:31 AM CDT [facility] MONOCYTES % 11.2 % 05/27/2024 6:31 AM CDT [facility] EOSINOPHILS 2.9 % 05/27/2024 6:31 AM CDT [facility] BASOPHILS 0.4 % 05/27/2024 6:31 AM CDT [facility] IMMATURE GRANS % 0.2 % 05/27/20 6:31 AM CDT [facility] ABS. NEUTROPHILS 2.41 1.80 - 7.70 x10'3/uL 05/27/2024 6:31 AM CDT [facility] ABS. LYMPHOCYTES 1.46 1.00 - 4.80 x10'3/uL 05/27/2024 6:31 AM CDT [facility] ABS. MONOCYTES 0.51 0.24 - 0.86 x10'3/uL 05/27/2024 6:31 AM CDT [facility] ABS. EOSINOPHILS 0.13 0.04 - 0.36 x10'3/uL 05/27/2024 6:31 AM CDT [facility] ABS. BASOPHILS 0.02 0.01 - 0.08 x10'3/uL 05/27/2024 6:31 AM CDT [facility] ABS. IMMATURE GRANULOCYTES 0.01 0.00 - 0.49 x10'3/uL 05/27/2024 6:31 AM CDT [facility] RBC MORPHOLOGY SLIDE REVIEWED 2023 6:31 AM CDT [facility] MACRO 1+ 05/27/2024 6:31 AM CDT [facility] PLT EST. ADEQUATE 05/27/2024 6:31 AM CDT [facility] 05/27/2024 5:25 AM CDT Sonya Cantrell DO LABORATORY Final Res ult [facility] [address] [place] [address], * (ABNORMAL) BASIC METABOLIC PANEL (05/27/2024 5:25 AM CDT) [facility] GLUCOSE 86 70 - 99 MG/DL 05/27/2024 6:10 AM CDT [facility] BUN 4(L) 7 - 18 MG/DL 05/27/2024 6:10 AM CDT [facility] CREATININE S/P/B 0.52(L) 0.55 - 1.02 MG/DL 05/27/2024 6:10 AM CDT [facility] SODIUM S/P/B 140 136 - 145 MMOL/L 05/27/2024 6:10 AM CDT [facility] POTASSIUM S/P/B 3.6 3.5 - 5.1 MMOL/L 05/27/2024 6:10 AM CDT [facility] CHLORIDE S/P/B 115(H) 100 - 108 MMOL/L 05/27/2024 6:10 AM CDT [facility] CO2 19.5(L) 21 - 32 MMOL/L 05/27/2024 6:10 AM CDT [facility] CALCIUM S/P/B 8.9 8.5 - 10.1 MG/DL 05/27/2024 6:10 AM CDT [facility] ANION GAP 5.5 5 - 15 MMOL/L 05/27/2024 6:10 AM CDT [facility] BUN CREATININE RATIO 7.6 6 - 26 05/27/2024 6:10 AM CDT [facility] GFR ESTIMATE >90 >90 ML/MIN/1.7 3 M2 05/27/2024 6:10 AM CDT [facility] Comment: NOTE: eGFR is not calculated for patients <18 years of age. This is an estimated GFR calculation using the new CKD EPI creatinine equation without race and so does not require a correction factor for race. This estimated GFR should not be used for calculating drug doses. 05/27/2024 5:25 AM CDT Sonya Cantrell DO LABORATORY Final Res ult [facility] [address] [place] [address], [place] [phone] * MAGNESIUM (05/26/2024 5:54 AM CDT) MAGNESIUM 2.2 1.8 - 2.4 MG/DL 05/26/2024 7:36 AM CDT [facility] 05/26/2024 5:54 AM CDT Sonya Cantrell DO LABORATORY Final Res ult Performing Organization Address City/[facility]/ZIP Co de Phone Number [facility] [address] [place] [address], [place] [phone] * (ABNORMAL) BASIC METABOLIC PANEL (05/26/2024 5:54 AM CDT) GLUCOSE 91 70 - 99 MG/DL 05/26/2024 6:35 AM CDT [facility] BUN 6(L) 7 - 18 MG/DL 05/26/2024 6:35 AM CDT [facility] CREATININE S/P/B 0.62 0.55 - 1.02 MG/DL 05/26/2024 6:35 AM CDT [facility] SODIUM S/P/B 138 136 - 145 MMOL/L 05/26/2024 6:35 AM CDT [facility] POTASSIUM S/P/B 3.3(L) 3.5 - 5.1 MMOL/L 05/26/2024 6:35 AM CDT [facility] CHLORIDE S/P/B 110(H) 100 - 108 MMOL/L 05/26/2024 6:35 AM CDT [facility] CO2 21.2 21 - 32 MMOL/L 05/26/2024 6:35 AM CDT [facility] CALCIUM S/P/B 9.3 8.5 - 10.1 MG/DL 05/26/2024 6:35 AM CDT [facility] ANION GAP 6.8 5 - 15 MMOL/L 05/26/2024 6:35 AM CDT [facility] BUN CREATININE RATIO 9.7 6 - 26 05/26/2024 6:35 AM CDT [facility] GFR ESTIMATE >90 >90 ML/MIN/1.7 3 M2 05/26/2024 6:35 AM CDT [facility] Comment: NOTE: eGFR is not calculated for patients <18 years of age. This is an estimated GFR calculation using the new CKD EPI creatinine equation without race and so does not require a correction factor for race. This estimated GFR should not be used for calculating drug doses. 05/26/2024 5:54 AM CDT Sonya Cantrell DO LABORATORY Final Res ult [facility] [address] [place] [address], * (ABNORMAL) CBC W/DIFF AUTOMATED (05/26/2024 5:54 AM CDT) WBC 6.56 4.5 - 11.0 x10'3/uL 05/26/2024 6:21 AM CDT [facility] RBC 3.45(L) 4.20 - 5.40 x10'6/uL 05/26/2024 6:21 AM CDT [facility] HGB 11.5(L) 12.0 - 16.0 G/DL 05/26/2024 6:21 AM CDT [facility] HCT 34.7(L) 38.0 - 48.0 % 05/26/2024 6:21 AM CDT [facility] MCV 100.6(H) 81.0 - 99.0 FL 05/26/2024 6:21 AM CDT [facility] MCH 33.3(H) 27.0 - 31.0 PG 05/26/2024 6:21 AM CDT [facility] MCHC 33.1 32.0 - 36.0 G/DL 05/26/2024 6:21 AM CDT [facility] RDW 14.3 11.5 - 14.5 % 05/26/2024 6:21 AM CDT [facility] PLT 195 130 - 400 x10'3/uL 05/26/2024 6:21 AM CDT [facility] MPV 10.6 9.3 - 12.2 FL 05/26/2024 6:21 AM CDT [facility] DIFFERENTIAL TYPE AUTOMATED DIFFERENTIAL 05/26/2024 6:21 AM CDT [facility] NEUTROPHILS % 61.4 % 05/26/2024 6:21 AM CDT [facility] LYMPHOCYTES % 25.5 % 05/26/2024 6:21 AM T [facility] MONOCYTES % 9.6 % 05/26/2024 6:21 AM CDT [facility] EOSINOPHILS 2.7 % 05/26/2024 6:21 AM CDT [facility] BASOPHILS 0.6 % 05/26/2024 6:21 AM CDT [facility] IMMATURE GRANS % 0.2 % 05/26/20 6:21 AM CDT [facility] ABS. NEUTROPHILS 4.03 1.80 - 7.70 x10'3/uL 05/26/2024 6:21 AM CDT [facility] ABS. LYMPHOCYTES 1.67 1.00 - 4.80 x10'3/uL 05/26/2024 6:21 AM CDT [facility] ABS. MONOCYTES 0.63 0.24 - 0.86 x10'3/uL 05/26/2024 6:21 AM CDT [facility] ABS. EOSINOPHILS 0.18 0.04 - 0.36 x10'3/uL 05/26/2024 6:21 AM CDT [facility] ABS. BASOPHILS 0.04 0.01 - 0.08 x10'3/uL 05/26/2024 6:21 AM CDT [facility] ABS. IMMATURE GRANULOCYTES 0.01 0.00 - 0.49 x10'3/uL 05/26/2024 6:21 AM CDT [facility] 05/26/2024 5:54 AM CDT us Sonya Cantrell DO LABORATORY Final Res ult [facility] [address] [place] [address], * (ABNORMAL) BASIC METABOLIC PANEL (05/25/2024 6:10 AM CDT) GLUCOSE 128(H) 70 - 99 MG/DL 05/25/2024 6:55 AM CDT [facility] BUN 14 7 - 18 MG/DL 05/25/2024 6:55 AM CDT [facility] CREATININE S/P/B 0.59 0.55 - 1.02 MG/DL 05/25/2024 6:55 AM CDT [facility] SODIUM S/P/B 140 136 - 145 MMOL/L 05/25/2024 6:55 AM T [facility] POTASSIUM S/P/B 3.3(L) 3.5 - 5.1 MMOL/L 05/25/2024 6:55 AM T [facility] CHLORIDE S/P/B 110(H) 100 - 108 MMOL/L 05/25/2024 6:55 AM CDT [facility] CO2 25.5 21 - 32 MMOL/L 05/25/2024 6:55 AM T [facility] CALCIUM S/P/B 8.9 8.5 - 10.1 MG/DL 05/25/2024 6:55 AM T [facility] ANION GAP 4.5(L) 5 - 15 MMOL/L 05/25/2024 6:55 AM T [facility] BUN CREATININE RATIO 23.6 6 - 26 05/25/2024 6:55 AM T [facility] GFR ESTIMATE >90 >90 ML/MIN/1.7 3 M2 05/25/2024 6:55 AM T [facility] Comment: NOTE: eGFR is not calculated for patients <18 years of age. This is an estimated GFR calculation using the new CKD EPI creatinine equation without race and so does not require a correction factor for race. This estimated GFR should not be used for calculating drug doses. 05/25/2024 6:10 AM CDT us Sonya Cantrell DO LABORATORY Final Res ult [facility] [address] [place] [address], [place] [phone] * (ABNORMAL) CBC W/DIFF AUTOMATED (05/25/2024 6:10 AM CDT) [facility] WBC 8.51 4.5 - 11.0 x10'3/uL 05/25/2024 6:37 AM CDT [facility] RBC 3.45(L) 4.20 - 5.40 x10'6/uL 05/25/2024 6:37 AM CDT [facility] HGB 11.5(L) 12.0 - 16.0 G/DL 05/25/2024 6:37 AM CDT [facility] HCT 35.4(L) 38.0 - 48.0 % 05/25/2024 6:37 AM CDT [facility] MCV 102.6(H) 81.0 - 99.0 FL 05/25/2024 6:37 AM CDT [facility] MCH 33.3(H) 27.0 - 31.0 PG 05/25/2024 6:37 AM CDT [facility] MCHC 32.5 32.0 - 36.0 G/DL 05/25/2024 6:37 AM CDT [facility] RDW 15.0(H) 11.5 - 14.5 % 05/25/2024 6:37 AM CDT [facility] PLT 186 130 - 400 x10'3/uL 05/25/2024 6:37 AM CDT [facility] MPV 10.4 9.3 - 12.2 FL 05/25/2024 6:37 AM CDT [facility] DIFFERENTIAL TYPE AUTOMATED DIFFERENTIAL 05/25/2024 6:37 AM CDT [facility] NEUTROPHILS % 69.7 % 05/25/2024 6:37 AM CDT [facility] LYMPHOCYTES % 17.3 % 05/25/2024 6:37 AM CDT [facility] MONOCYTES % 10.9 % 05/25/2024 6:37 AM CDT [facility] EOSINOPHILS 1.5 % 05/25/2024 6:37 AM CDT [facility] BASOPHILS 0.2 % 05/25/2024 6:37 AM CDT [facility] IMMATURE GRANS % 0.4 % 05/25/20 6:37 AM CDT [facility] ABS. NEUTROPHILS 5.93 1.80 - 7.70 x10'3/uL 05/25/2024 6:37 AM CDT [facility] ABS. LYMPHOCYTES 1.47 1.00 - 4.80 x10'3/uL 05/25/2024 6:37 AM CDT [facility] ABS. MONOCYTES 0.93(H) 0.24 - 0.86 x10'3/uL 05/25/2024 6:37 AM CDT [facility] ABS. EOSINOPHILS 0.13 0.04 - 0.36 x10'3/uL 05/25/2024 6:37 AM CDT [facility] ABS. BASOPHILS 0.02 0.01 - 0.08 x10'3/uL 05/25/2024 6:37 AM CDT [facility] ABS. IMMATURE GRANULOCYTES 0.03 0.00 - 0.49 x10'3/uL 05/25/2024 6:37 AM CDT [facility] 05/25/2024 6:10 AM CDT us Sonya Cantrell DO LABORATORY Final Res ult [facility] [address] [place] [address], [place] [phone] * MAGNESIUM (05/24/2024 6:26 AM CDT) MAGNESIUM 2.1 1.8 - 2.4 MG/DL 05/24/2024 7:01 AM CDT [facility] 05/24/2024 6:26 AM CDT Lian Sauer MD LABORATORY Final Resul t [facility] [address] [place] [address], [place] [phone] * (ABNORMAL) BASIC METABOLIC PANEL (05/24/2024 6:26 AM CDT) Pathologist [facility] GLUCOSE 96 70 - 99 MG/DL 05/24/2024 7:01 AM CDT [facility] BUN 26(H) 7 - 18 MG/DL 05/24/2024 7:01 AM CDT [facility] CREATININE S/P/B 0.62 0.55 - 1.02 MG/DL 05/24/2024 7:01 AM CDT [facility] SODIUM S/P/B 143 136 - 145 MMOL/L 05/24/2024 7:01 AM CDT [facility] POTASSIUM S/P/B 3.7 3.5 - 5.1 MMOL/L 05/24/2024 7:01 AM CDT [facility] CHLORIDE S/P/B 114(H) 100 - 108 MMOL/L 05/24/2024 7:01 AM CDT [facility] CO2 20.8(L) 21 - 32 MMOL/L 05/24/2024 7:01 AM CDT [facility] CALCIUM S/P/B 9.0 8.5 - 10.1 MG/DL 05/24/2024 7:01 AM CDT [facility] ANION GAP 8.2 5 - 15 MMOL/L 05/24/2024 7:01 AM CDT [facility] BUN CREATININE RATIO 41.7(H) 6 - 26 05/24/2024 7:01 AM CDT [facility] GFR ESTIMATE >90 >90 ML/MIN/1.7 3 M2 05/24/2024 7:01 AM CDT [facility] Comment: NOTE: eGFR is not calculated for patients <18 years of age. This is an estimated GFR calculation using the new CKD EPI creatinine equation without race and so does not require a correction factor for race. This estimated GFR should not be used for calculating drug doses. 05/24/2024 6:26 AM CDT us Lian Sauer MD LABORATORY Final Resul t [facility] [address] [place] [address], * (ABNORMAL) CBC W/DIFF AUTOMATED (05/24/2024 6:26 AM CDT) WBC 10.43 4.5 - 11.0 x10'3/uL 05/24/2024 6:56 AM CDT [facility] RBC 3.74(L) 4.20 - 5.40 x10'6/uL 05/24/2024 6:56 AM CDT [facility] HGB 12.1 12.0 - 16.0 G/DL 05/24/2024 6:56 AM CDT [facility] HCT 37.5(L) 38.0 - 48.0 % 05/24/2024 6:56 AM CDT [facility] MCV 100.3(H) 81.0 - 99.0 FL 05/24/2024 6:56 AM CDT [facility] MCH 32.4(H) 27.0 - 31.0 PG 05/24/2024 6:56 AM CDT [facility] MCHC 32.3 32.0 - 36.0 G/DL 05/24/2024 6:56 AM CDT [facility] RDW 15.3(H) 11.5 - 14.5 % 05/24/2024 6:56 AM CDT [facility] PLT 217 130 - 400 x10'3/uL 05/24/2024 6:56 AM CDT [facility] MPV 10.4 9.3 - 12.2 FL 05/24/2024 6:56 AM CDT [facility] DIFFERENTIAL TYPE AUTOMATED DIFFERENTIAL 05/24/2024 6:56 AM CDT [facility] NEUTROPHILS % 73.1 % 05/24/2024 6:56 AM CDT [facility] LYMPHOCYTES % 15.7 % 05/24/2024 6:56 AM T [facility] MONOCYTES % 10.5 % 05/24/2024 6:56 AM CDT [facility] EOSINOPHILS 0.0 % 05/24/2024 6:56 AM CDT [facility] BASOPHILS 0.2 % 05/24/2024 6:56 AM CDT [facility] IMMATURE GRANS % 0.5 % 05/24/20 6:56 AM CDT [facility] ABS. NEUTROPHILS 7.62 1.80 - 7.70 x10'3/uL 05/24/2024 6:56 AM CDT [facility] ABS. LYMPHOCYTES 1.64 1.00 - 4.80 x10'3/uL 05/24/2024 6:56 AM CDT [facility] ABS. MONOCYTES 1.10(H) 0.24 - 0.86 x10'3/uL 05/24/2024 6:56 AM CDT [facility] ABS. EOSINOPHILS 0.00(L) 0.04 - 0.36 x10'3/uL 05/24/2024 6:56 AM CDT [facility] ABS. BASOPHILS 0.02 0.01 - 0.08 x10'3/uL 05/24/2024 6:56 AM CDT [facility] ABS. IMMATURE GRANULOCYTES 0.05 0.00 - 0.49 x10'3/uL 05/24/2024 6:56 AM CDT [facility] 05/24/2024 6:26 AM CDT us Lian Sauer MD LABORATORY Final Resul t [facility] [address] [place] [address], * XR SMALL BOWEL (05/23/2024 2:06 PM [...] ?? COMPARISON: CT 05/23/2024 2:40 AM TECHNIQUE: Healthcare Market Consultant image of the abdomen was obtained, oral contrast was administered by NG tube. Images of the abdomen were obtained 20, 40, 60, 90, 120, 180 minutes after administration. FINDINGS: Healthcare Market Consultant image demonstrates moderate small bowel dilatation. NG [...] obstruction COMPARISON: CT 05/23/2024 2:40 AM TECHNIQUE: Healthcare Market Consultant image of the abdomen was obtained, oral contrast wasadministered by NG tube. Images of the abdomen were obtained 20, 40, 60,90, 120, 180 minutes after administration. FINDINGS: Healthcare Market Consultant image demonstrates moderate small bowel dilatation. NG [...] Diagnoses Diagnosis SBO (small bowel obstruction) (CMS/HCC [facility]/HCC) Unspecified intestinal obstruction documented in this [...] Given 05/26/2024 8:56 PM CDT 1 tablet djuroxicx-lqarwdvw-uvlplsumckq ([employer]) 6309-1163-812 mg/30mL suspension 5 mL, Oral, Every 6 [...] 0925 (Given - Provider: Rivera Brown, RTR) nwxzrriio-thqtsmxj-ngrtnyopftl ([employer]) 6003-4050-715 mg/30mL suspension 5 mL, Oral, Every 6 [...] as of this encounter Care Teams Director Process Engineering Relationship Specialty [place] [address] [facility] [address] [place] [address] PCP - General FAMILY PRACTICE 03/01/23 Perez Cervantes MD [address] [place] [id number] RHEUMATOLOGY 09/02/23 Adriana Ma MD [address] [place] [address] Referring Physician ALLERGY 09/02/23 documented as of this encounter
--- OUTSIDE RECORDS SUMMARY | 2024-11-13 17:52 | XMS_ITS | Encounter Summary ---
Author Organization [facility] Address [address] [place] [address]. [place] [address] [place] [address] Care Team Providers Care Chemical Packager Name Role Phone Dayanara Plaza MD Primary Care Provider Reason for Visit * Reason Onset Date Comments Other 03/05/2023 Encounter Details Date Type Department Care Team (Late st Contact Info) Description 03/05/[address] [address] [place] [address] [facility]. [address] [place] [address] Other Social History Tobacco Use [...] degree (e.g., MA, MS, Howard, MEd, SENIOR HARDWARE ENGINEER, KEKE) 12/21/2018 Comments No Sex and [...] st Contact Info) Description 11/14/2024 8:00 AM BIODIESEL OPERATIONS MANAGER Office Visit [facility] - [address], [address] [place] [phone] Montserrat Oliver NP [address] [facility] [address] [place] [address] 12/06/2024 9:30 AM BIODIESEL OPERATIONS MANAGER Appointment [facility] Open MRI [address] [place] [address] [place] [address] [facility] [address] [place] [phone] 03/02/2025 3:20 PM CDT Office Visit [facility] - [address] [phone] [place] [address] [facility] [address]. [address] [place] [phone] documented as of this encounter Visit Diagnoses Not on filedocumented in this encounter Additional Health Concerns Assessment Noted Time PHQ-9 Depression Total Score: 2 05/27/20 22 11:36 AM CDT documented as of this encounter Care Teams Chemical Packager Relationship Specialty [place] [address] [address] [place] [address] PCP - General FAMILY PRACTICE 03/01/23 documented as of this encounter
--- OUTSIDE RECORDS SUMMARY | 2024-11-13 17:52 | XMS_ITS | Encounter Summary ---
Author Organization [facility] Address [address] [place] [address]. [place], [place] [address] [place] [address] Care Team Providers Care Shipping And Receiving Specialist Name Role Phone Dayanara Plaza MD Primary Care Provider [phone] Encounter Details Date Type Department Care Team (Latest Contact Info) Description 08/30/2023 1:31 PM CDT - 08/30/2023 5:09 PM CDT Hospital Encounter [facility] Diagnostic Imaging [address] [place] [address] [place] [address] [place] [address] Discharge Disposition: Home or Self Care (Routine [...] Master's degree (e.g., MA, MS, Howard, MEd, ZONING ENGINEER, KEKE) 12/21/2018 Comments No Sex and [...] mouth 2 (two) times daily. 11/24/2021 4 [place]-3 Fatty Acids (FISH OIL) 1200 MG Cap Take 1 capsule by mouth daily. 4 polyethylene glycol packet Take 240 mLs (1 packet total) by mouth daily as needed. 4 documented as of this encounter Plan of Treatment Upcoming Encounters Date Type Department Care Team (Late st Contact Info) Description 11/14/2024 8:00 AM ASSAYER HELPER Office Visit [facility] Multispecialty Care - [facility] 3 [facility], [address] [place] [phone] Montserrat Oliver NP 3 [facility] [address] [place] [address] 12/06/2024 9:30 AM ASSAYER HELPER Appointment [facility] Open MRI [address] [place] [address] [place] [address] [facility]. [address] [place] [id number] 03/02/2025 3:20 PM CDT Office Visit [facility] Family & Internal Medicine - [address] [phone] [place] [address] [facility] [address] [place] [address] documented as of this encounter Procedures Procedure [...] documented as of this encounter Care Teams Shipping And Receiving Specialist Relationship Specialty [place] [address] [facility]. [address] [place] [address] PCP - General FAMILY PRACTICE 03/01/23 documented as of this encounter
--- OUTSIDE RECORDS SUMMARY | 2024-11-13 17:52 | XMS_ITS | Encounter Summary ---
Author Organization [facility] Address [address] [place] [address]. [place] [address] [place] [address] Care Team Providers Care Machine Maintenance Supervisor Name Role Phone Dayanara Plaza MD Primary Care Provider [phone] Perez Cervantes MD Unavailable Adriana Ma MD Unavailable [phone] Reason for Visit * Reason Comments Follow Up Establishing care, hortensia chisholm from Dr. Mcnally. Encounter Details Date Type Department Care Team (Late st Contact Info) Description 11/10/2023 3:20 PM HEEL SLICKER Office Visit [facility] Family & Internal Medicine [address] [address] [place] [id number] [place] [address]. [address] [place] [address] Follow Up (Establishing care, transfer from [...] Master's degree (e.g., MA, MS, Howard, MEd, CAMPUS CHAPLAIN, KEKE) 12/21/2018 Comments No Sex and Gender [...] Comments Blood Pressure 112/60 11/10/2023 3:29 PM HEEL SLICKER Pulse 72 11/10/2023 3:29 PM HEEL SLICKER Temperature 37.2 ??C (98.9 ??F) 11/10/2023 3:29 PM CS T Respiratory Rate 18 11/10/2023 3:29 PM HEEL SLICKER Oxygen Saturation 98% 11/10/2023 3:29 PM HEEL SLICKER Inhaled Oxygen Concentration - - Weight 76.2 kg (168 lb) 11/10/2023 3:29 PM HEEL SLICKER Height 172.7 cm (5' 8 ) 11/10/2023 3:29 PM HEEL SLICKER Body Mass Index 25.54 11/10/2023 3:29 PM HEEL SLICKER documented in this encounter Patient Instructions * Patient Instructions* Dayaanra Plaza MD - 11/10/2023 3:20 PM HEEL SLICKER Start trazodone today Keep taking citalopram for 3 weeks and then stop After this continue trazodone at bedtime only Can increase Trazodone to 2-3 tablets at bedtime if needed SLICKER documented in this encounter Progress Notes * Dayanara Plaza MD - 11/10/2023 3:20 PM CST Reason for Visit: Follow Up (Establishing care, transfer from Dr. Mcnally. ) History of Present Illness: [facility] is a pleasant 58-year-old female with [...] of the foot With excess exertion. SPECIALISTS: sales and service change leader, Design Maker. Sees business development associate Receivable Manager for [employer]. 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 Established with business development associate. - montelukast (SINGULAIR) 10 MG tablet; Take [...] ref. provider found PCP: Dayanara Plaza MD SLICKER documented in this encounter Plan of Treatment Upcoming Encounters Date Type Department Care Team (Late st Contact Info) Description 11/14/2024 8:00 AM HEEL SLICKER Office Visit [facility] Multispecialty Care - [facility] 3 [facility], [address] [place] [phone] Montserrat Oliver NP 3 [facility] [address] [place] [address] 12/06/2024 9:30 AM HEEL SLICKER Appointment [facility] Open MRI [address] [place] [address] [place] [address] [facility] [address] [place] [address] [phone] 03/02/2025 3:20 PM CDT Office Visit [facility] Family & Internal Medicine - [address] [address] [place] [address] [address] [place] [address] documented as of this encounter Visit Diagnoses [...] as of this encounter Care Teams Machine Maintenance Supervisor Relationship Specialty [place] [address] [address] [place] [address] PCP - General FAMILY PRACTICE 03/01/23 Perez Cervantes MD [address] [place] [phone] RHEUMATOLOGY 09/02/23 Adriana Ma MD [address] [place] [address] Referring Physician ALLERGY 09/02/23 documented as of this encounter
--- OUTSIDE RECORDS SUMMARY | 2024-11-13 17:52 | XMS_ITS | Encounter Summary ---
Author Organization [facility] Address [address] [place] [address]. [place], [place] [address] [place] [address] Care Team Providers Care Accounts Receivable Processor Name Role Phone Dayanara Plaza MD Primary Care Provider [phone] Encounter Details Date Type Department Care Team [...] Master's degree (e.g., MA, MS, Howard, MEd, MINOR LEAGUE BASEBALL PLAYER, KEKE) 12/21/2018 Comments No Sex and Gender [...] (Late Contact Info) Description 11/14/2024 8:00 AM DRILLER AND BROACHER Office Visit [facility] Multispecialty Care - [facility] 3 [facility], [address] [place] [address] Montserrat Oliver, DOREEN 3 [facility] [address] [place] [address] 12/06/2024 9:30 AM DRILLER AND BROACHER Appointment [facility] Open MRI [address] [facility] [address] [place] [address] [address] [place] [address] 03/02/2025 3:20 PM CDT Office Visit [facility] Family & Internal Medicine - [address] [phone] [place] [address] [place] [address] documented as of this encounter Visit Diagnoses Not on filedocumented in this encounter Additional Health Concerns Assessment Noted Time PHQ-9 Depression Total Score: 2 05/27/20 22 11:36 AM CDT documented as of this encounter Care Teams Accounts Receivable Processor Relationship Specialty [place] [address] [address] [place] [address] PCP - General FAMILY PRACTICE 03/01/23 documented as of this encounter
--- OUTSIDE RECORDS SUMMARY | 2024-11-13 17:52 | XMS_ITS | Encounter Summary ---
Author Organization [facility] Address [address] [place] [address]. [place] [address] [place] [address] Care Team Providers Care Supervisor Lace Tearing Name Role Phone Dayanara Plaza MD Primary Care Provider [phone] Perez Cervantes MD Unavailable Adriana Ma MD Unavailable [phone] Encounter Details Date Type Department Care Team [...] Master's degree (e.g., MA, MS, Howard, MEd, RENEWABLE ENERGY PROJECT MANAGER, KEKE) 12/21/2018 Comments No Sex and [...] st Contact Info) Description 11/14/2024 8:00 AM SCORER SINGLE Office Visit [facility] Multispecialty Care - [facility] 3 [facility], [address] [place] [address] Montserrat Oliver NP 3 [facility] [address] [place] [address] 12/06/2024 9:30 AM SCORER SINGLE Appointment [facility] Open MRI [address] [place] [address] [place] [address] [employer] [place] [address] 03/02/2025 3:20 PM CDT Office Visit [facility] Family & Internal Medicine - [place] [address] [place] [phone] [place] [address] [facility] [place] [address] [place] [address] documented as of this encounter Visit Diagnoses Not on filedocumented in this encounter Additional Health Concerns Assessment Noted Time PHQ-9 Depression Total Score: 0 04/03/20 24 10:56 AM CDT documented as of this encounter Care Teams Supervisor Lace Tearing Relationship Specialty Start Date End Date Dayanara Plaza MD [address] [place] [address] [address] [place] [address] PCP - General FAMILY PRACTICE 03/01/23 Perez Cervantes MD [address] [place] [phone] RHEUMATOLOGY 09/02/23 Adriana Ma MD [address] [place] [address] Referring Physician ALLERGY 09/02/23 documented as of this encounter
--- OUTSIDE RECORDS SUMMARY | 2024-11-13 17:52 | XMS_ITS | Encounter Summary ---
Author Organization [facility] Address [address] [place] [address]. [place] [address] [place] [address] Care Team Providers Care Gravel Inspector Name Role Phone Dayanara Plaza MD Primary Care Provider [phone] Perez Cervantes MD Unavailable Adriana Ma MD Unavailable [phone] Encounter Details Date Type Department Care Team [...] degree (e.g., MA, MS, Howard, MEd, FLIGHT MECHANIC, KEKE) 12/21/2018 Comments No Sex and [...] st Contact Info) Description 11/14/2024 8:00 AM MILITARY EDUCATION COORDINATOR Office Visit [facility] Multispecialty Care - [facility] 3 [facility], [address] [place] [address] Montserrat Oliver NP 3 [facility] [address] [place] [address] 12/06/2024 9:30 AM MILITARY EDUCATION COORDINATOR Appointment [facility] Open MRI [address] [place] [address] [place] [address] [employer] [place] [address] 03/02/2025 3:20 PM CDT Office Visit [facility] Family & Internal Medicine - [place] [address] [place] [phone] [place] [address] [facility] [address] [place] [address] documented as of this encounter Visit Diagnoses Not on filedocumented in this encounter Additional Health Concerns Assessment Noted Time PHQ-9 Depression Total Score: 2 05/27/20 22 11:36 AM CDT documented as of this encounter Care Teams Gravel Inspector Relationship Specialty Start Date End Date Dayanara Plaza MD [address] [place] [address] Ave[address] [place] [address] PCP - General FAMILY PRACTICE 03/01/23 Perez Cervantes MD [address] [place] [phone] RHEUMATOLOGY 09/02/23 Adriana Ma MD 325 [place] [address] Referring Physician ALLERGY 09/02/23 documented as of this encounter
--- OUTSIDE RECORDS SUMMARY | 2024-11-13 17:52 | XMS_ITS | Encounter Summary ---
Author Organization [facility] Address [address] [place] [address]. [place] [address] [place] [address] Care Team Providers Care Field Technical Assistant Name Role Phone Izzy Plaza MD Primary Care Provider [phone] Perez Cervantes MD Unavailable Adriana Ma MD Unavailable [phone] Reason for Referral * Imaging (Routine) - Pending Review Specialty Diagnoses / Procedures Referred By Contac t Referred To Contact RADIOLOGY Diagnoses Encounter for osteoporosis screening in asymptomatic postmenopausal patient Procedures BONE DENSITY/[place] [address] [address] [place] [address] Phone: tel: fax: Referral ID Status Reason Start Date Expiration Date V isits Requested Visits Authorized [id number] Pending Review 01/17/2024 02/15/2025 1 1 L EXPERT Encounter Details Date Type Department Care Team (Latest Contact Info) Description 01/16/2024 [employer] Message Enc [facility] Family & Internal Medicine [address] [address] [place] [address] [address] [place] [address] Test for Osteoporosis Social History Tobacco [...] Master's degree (e.g., MA, MS, Howard, MEd, ENTERPRISE ANALYST, KEKE) 12/21/2018 Comments No Sex and [...] on: 01/17/2024 03:41 PM Modules accepted: Orders L EXPERT * Izzy Plaza MD - 01/17/2024 1:13 PM CST Given rheumatoid Vitas and patient on methotrexate, high risk. Will start screening early. Okay to order screening DEXA. Diagnosis in L EXPERT * Luna Miranda NP - 01/17/2024 9:00 AM CST Ok to order DEXA? L EXPERT documented in this encounter Plan of Treatment Upcoming Encounters Date Type Department Care Team (Late st Contact Info) Description 11/14/2024 8:00 AM EXCEL EXPERT Office Visit [facility] Multispecialty Care - [facility] 3 [facility], [address] [place] [phone] Montserrat Oliver NP 3 [facility] [address] [place] [address] 12/06/2024 9:30 AM EXCEL EXPERT Appointment [facility] Open MRI [address] [place] [address] [place] [address] [facility] [employer]. [address] [place] [phone] 03/02/2025 3:20 PM CDT Office Visit [facility] Family & Internal Medicine - [address] [phone] [place] [address] [place] [phone] documented as of this encounter Results * [...] bone mineral density test. [facility], routine testing is allowed once every [...] as of this encounter Care Teams Field Technical Assistant Relationship Specialty [place] [address] [facility] [place] [address] PCP - General FAMILY PRACTICE 03/01/23 Perez Cervantes MD [address] [place] [phone] RHEUMATOLOGY 09/02/23 Adriana Ma MD [address] [place] [address] Referring Physician ALLERGY 09/02/23 documented as of this encounter
--- OUTSIDE RECORDS SUMMARY | 2024-11-13 17:52 | XMS_ITS | Encounter Summary ---
Author Organization [facility] Address [address] [place] [address]. [place] [address] [place] [address] Care Team Providers Care Doctor Of Nursing Practice Name Role Phone Dayanara Plaza MD Primary Care Provider [phone] Encounter Details Date Type Department Care Team [...] Master's degree (e.g., MA, MS, Howard, MEd, PROPERTY CLERK, KEKE) 12/21/2018 Comments No Sex and Gender [...] st Contact Info) Description 11/14/2024 8:00 AM MICROSYSTEMS ENGINEER Office Visit [facility] Multispecialty Care - [facility] 3 [facility], [address] [place] [address] Montserrat Oliver, DOREEN 3 [facility] [address] [place] [address] 12/06/2024 9:30 AM MICROSYSTEMS ENGINEER Appointment [facility] Open MRI [address] [place] [address] [place] [address] [employer] [place] [address] 03/02/2025 3:20 PM CDT Office Visit [facility] Family & Internal Medicine - [place] [address] [place] [address] [place] [address] [facility] [address] [place] [address] documented as of this encounter Visit Diagnoses Not on filedocumented in this encounter Additional Health Concerns Assessment Noted Time PHQ-9 Depression Total Score: 2 05/27/20 22 11:36 AM CDT documented as of this encounter Care Teams Doctor Of Nursing Practice Relationship Specialty [place] [address] [facility] [address] [place] [address] PCP - General FAMILY PRACTICE 03/01/23 documented as of this encounter
--- OUTSIDE RECORDS SUMMARY | 2024-11-13 17:52 | XMS_ITS | Encounter Summary ---
Author Organization [facility] Address [address] [place] [address]. [place] [address] [place] [address] Care Team Providers Care Blindstitch Machine Operator Name Role Phone Dayanara Plaza MD Primary Care Provider [phone] Perez Cervantes MD Unavailable Adriana Ma MD Unavailable [phone] Reason for Referral * Imaging (Emergency) - New Request Specialty Diagnoses / Procedures Referred By Contac t Referred To Contact RADIOLOGY Procedures CTA CHEST+ABD+PEL Sam Gage MD [address] [place] [address] Phone: tel: fax: Referral ID Status Reason Start Date Expiration Date V isits Requested Visits Authorized [id number] New Request 05/21/2024 05/21/2025 1 1 Reason for Visit * Reason Comments Abdominal Pain Encounter Details Date Type Department Care Team (Late st Contact Info) Description 05/21/2024 3:23 PM CDT - 05/21/2024 7:48 PM CDT Emergency [facility] Emergency Room [id number] [place] [address] Abdominal Pain Discharge Disposition: Home or [...] Master's degree (e.g., MA, MS, Howard, MEd, AGRICULTURAL ENGINEERING TECHNOLOGIST, KEKE) 12/21/2018 Comments No Sex and Gender [...] as of this encounter ED Notes * Sma Gage MD - 05/21/2024 4:12 PM CDT [...] COLONOSCOPY-NORMAL performed by Niall Matute MD at [facility] GI COLONOSCOPY STOMA DX INCLUDING COLLJ SPEC [...] STUDIES CTA CHEST+ABD+PEL Final Result by User, [id number] (05/21 1420) Examination: CTA CHEST+ABD+PEL Exam time: 05/21/2024 4:48 [...] / Medical Decision Making [facility] is a 59-year-old female who presents with [...] Contact Info) Description 11/14/2024 8:00 AM WEIGHT INSPECTOR Office Visit [facility] Multispecialty Care - [facility] 3 [facility], [address] [place] [address] Montserrat Oliver NP 3 [facility] [address] [place] [address] 12/06/2024 9:30 AM WEIGHT INSPECTOR Appointment [facility] Open MRI [address] [place] [address] [place] [address] [facility]. [address] [place] [address] 03/02/2025 3:20 PM CDT Office Visit [facility] Family & Internal Medicine - [address] [phone] [place] [address] [facility]. [address] [place], [place] [id number] documented as of this encounter Procedures Procedure [...] URINALYSIS, AUTO, COMPLETE (05/21/2024 5:40 PM CDT) [facility] (U) YELLOW 05/21/2024 6:24 PM CDT [facility] TRANSPARENCY CLEAR 05/21/2024 6:24 PM CDT [facility] SPECIFIC GRAVITY (U) 1.010 1.000 - 1.030 05/21/2024 6:24 PM CDT [facility] U PH 7.5 5.0 - 9.0 05/21/2024 6:24 PM CDT [facility] LEUKOCYTES (U) NEGATIVE NEGATIVE 05/21/2024 6:24 PM CDT [facility] NITRITES NEGATIVE NEGATIVE 05/21/2024 6:24 PM CDT [facility] PROTEIN RANDOM (U) NEGATIVE NEGATIVE 05/21/2024 6:24 PM CDT [facility] GLUCOSE (U) NEGATIVE NEGATIVE 05/21/2024 6:24 PM T [facility] KETONES MG/DL (U) NEGATIVE NEGATIVE 05/21/2024 6:24 PM CDT [facility] BILIRUBIN (U) NEGATIVE NEGATIVE 05/21/2024 6:24 PM T [facility] BLOOD (U) NEGATIVE NEGATIVE 05/21/2024 6:24 PM T [facility] WBC/HPF NONE SEEN 0 - 5 /HPF 05/21/2024 6:24 PM T [facility] RBC/HPF NONE SEEN 0 - 5 /HPF 05/21/2024 6:24 PM CDT [facility] EPI/HPF RARE /HPF 05/21/2024 6:24 PM T [facility] URINE SPECIMEN OBTAINED BY CLEAN CATCH PROCEDURE / Unknown 05/21/2024 5:40 PM CDT us Sam Gage MD URINE ORDERABLES F inal Result [facility] [address] [place] [id number], * CTA CHEST+ABD+PEL (05/21/2024 5:00 PM CDT) [...] addition, 3D image processing was performed on [employer] workstation by a technologist, with images sent [...] - 77 UNITS/L 05/21/2024 4:42 PM CDT [facility] () [facility] 05/21/2024 3:29 PM CDT Sam Gage MD LABORATORY Fi nal Result [facility] [address] [place] [address], [place] [phone] * (ABNORMAL) COMPREHENSIVE METABOLIC PANEL (05/21/2024 3:29 PM CDT) [facility] Signature GLUCOSE 92 70 - 99 MG/DL 05/21/2024 4:42 PM CDT [facility] BUN 16 7 - 18 MG/DL 05/21/2024 4:42 PM CDT [facility] CREATININE S/P/B 0.92 0.55 - 1.02 MG/DL 05/21/2024 4:42 PM CDT [facility] SODIUM S/P/B 141 136 - 145 MMOL/L 05/21/2024 4:42 PM CDT [facility] POTASSIUM S/P/B 3.2(L) 3.5 - 5.1 MMOL/L 05/21/2024 4:42 PM T [facility] CHLORIDE S/P/B 103 100 - 108 MMOL/L 05/21/2024 4:42 PM CDT [facility] CO2 23.9 21 - 32 MMOL/L 05/21/2024 4:42 PM T [facility] CALCIUM S/P/B 10.0 8.5 - 10.1 MG/DL 05/21/2024 4:42 PM T [facility] BILIRUBIN TOTAL S/P/B 0.5 0.2 - 1.2 MG/DL 05/21/2024 4:42 PM T [facility] TOTAL PROTEIN S/P/B 7.6 6.4 - 8.2 G/DL 05/21/2024 4:42 PM T [facility] ALBUMIN S/P/B 3.6 3.4 - 5.0 G/DL 05/21/2024 4:42 PM CDT [facility] AST 20 15 - 37 U/L 05/21/2024 4:42 PM CDT [facility] ALT 29 14 - 55 U/L 05/21/2024 4:42 PM CDT [facility] ALKALINE PHOSPHATASE S/P/B 117 50 - 136 U/L 05/21/2024 4:42 PM CDT [facility] ANION GAP 14.1 5 - 15 MMOL/L 05/21/2024 4:42 PM CDT [facility] BUN CREATININE RATIO 17.4 6 - 26 05/21/2024 4:42 PM CDT [facility] A/G RATIO 0.9(L) 1.0 - 2.0 RATIO 05/21/2024 4:42 PM CDT [facility] GFR ESTIMATE 71(L) >90 ML/MIN/1.7 3 M2 05/21/2024 4:42 PM CDT [facility] Comment: NOTE: eGFR is not calculated for patients <18 years of age. This is an estimated GFR calculation using the new CKD EPI creatinine equation without race and so does not require a correction factor for race. This estimated GFR should not be used for calculating drug doses. 05/21/2024 3:29 PM CDT Sam Gage MD LABORATORY Fi nal Result [facility] [address] [place] [address], * (ABNORMAL) CBC W/DIFF AUTOMATED (05/21/2024 3:29 PM CDT) WBC 7.53 4.4 - 11.0 x10'3/uL 05/21/2024 4:31 PM CDT [facility] RBC 3.96(L) 4.50 - 5.10 x10'6/uL 05/21/2024 4:31 PM CDT [facility] HGB 13.1 12.3 - 15.3 G/DL 05/21/2024 4:31 PM CDT [facility] HCT 38.7 35.9 - 44.6 % 05/21/2024 4:31 PM T [facility] MCV 97.7(H) 80.0 - 96.0 FL 05/21/2024 4:31 PM CDT [facility] MCH 33.1(H) 25.3 - 30.9 PG 05/21/2024 4:31 PM CDT [facility] MCHC 33.9 31.0 - 34.1 G/DL 05/21/2024 4:31 PM T [facility] RDW 14.6 12.4 - 15.1 % 05/21/2024 4:31 PM T [facility] PLT 245 151 - 353 x10'3/uL 05/21/2024 4:31 PM T [facility] MPV 11.2 9.6 - 12.0 FL 05/21/2024 4:31 PM T [facility] RBC MORPHOLOGY NORMAL 05/21/2024 4:31 PM T [facility] PLT MORPH. NORMAL 05/21/2024 4:31 PM T [facility] WBC MORPHOLOGY NORMAL 05/21/2024 4:31 PM T [facility] LYMPHOCYTES % 45.3(H) 15.8 - 45.0 % 05/21/2024 4:31 PM T [facility] NEUTROPHILS % 41.7(L) 42.1 - 71.9 % 05/21/2024 4:31 PM CDT [facility] MONOCYTES % 11.0 5.7 - 12.5 % 05/21/2024 4:31 PM CDT [facility] EOSINOPHILS 1.5 0.0 - 5.6 % 05/21/2024 4:31 PM CDT [facility] BASOPHILS 0.4 0.0 - 1.3 % 05/21/2024 4:31 PM CDT [facility] ABS. NEUTROPHILS 3.14 1.40 - 6.00 x10'3/uL 05/21/2024 4:31 PM CDT [facility] IMMATURE GRANS % 0.1 0.0 - 0.5 % 05/21/2024 4:31 PM CDT [facility] ABS. LYMPHOCYTES 3.41 0.80 - 4.70 x10'3/uL 05/21/2024 4:31 PM CDT [facility] 05/21/2024 3:29 PM CDT us Sam Gage MD LABORATORY Fi nal Result [facility] [address] [place] [address], documented in this encounter Visit Diagnoses Diagnosis [...] documented as of this encounter Care Teams Blindstitch Machine Operator Relationship Specialty [place] [address] [facility] [place] [address] PCP - General FAMILY PRACTICE 03/01/23 Perez Cervantes MD [address] [place] [phone] RHEUMATOLOGY 09/02/23 Adriana Ma MD [address] [place] [address] Referring Physician ALLERGY 09/02/23 documented as of this encounter
--- OUTSIDE RECORDS SUMMARY | 2024-11-13 17:52 | XMS_ITS | Encounter Summary ---
Author Organization [facility] Address [address] [place] [address]. [place], [place] [address] [place] [address] Care Team Providers Care Residential Aide Name Role Phone Dayanara Plaza MD Primary Care Provider [phone] Reason for Visit * Reason Comments Diarrhea Symptoms 3 days Flank Pain Left flank pain Encounter Details Date Type Department Care Team (Late st Contact Info) Description 08/30/2023 1:20 PM CDT Office Visit [facility] Family & Internal Medicine [facility] [address] [place] [address] [place] [address] [place] [address] Diarrhea (Symptoms 3 days); Flank [...] Master's degree (e.g., MA, MS, Howard, MEd, ROTARY FURNACE TENDER, KEKE) 12/21/2018 Comments No Sex and [...] Care Everywhere. * Flank Pain Discharge Instructions (Gibraltarian) documented in this encounter Progress Notes * TANYA Root - 08/30/2023 1:20 PM CDT Images from the original note were not included. _ Reason for Visit: Diarrhea (Symptoms 3 days) and Flank Pain (Left flank pain) History of Present Illness: [facility] is a 58-year-old female here for evaluation [facility] walk in clinic for evaluation [...] total) by mouth 2 (two) times daily. [place]-3 Fatty Acids (FISH OIL) 1200 MG Cap [...] Matute MD at [facility] GI EYE SURGERY 2020 cataract extraction [...] Portions of this note were dictated using [facility] speech recognition software. Occasional wrong wordor sound-alike [...] st Contact Info) Description 11/14/2024 8:00 AM FITTER ARMAMENT Office Visit [facility] Multispecialty Care - [facility] 3 [facility], [address] [place] [phone] Montserrat Oliver NP 3 [facility] [address] [place] [address] 12/06/2024 9:30 AM FITTER ARMAMENT Appointment [facility] Open MRI [address] [place] [address] [place] [address] [place] [address] 03/02/2025 3:20 PM CDT Office Visit [facility] Family & Internal Medicine - [place] [address] [place] [address] [place] [address] [facility]. [address] [place] [address] documented as of this encounter Procedures Procedure [...] URINE CLEAN CATCH 08/30/2023 5:11 PM CDT [facility] SPECIAL REQUESTS NO SPECIAL REQUEST 08/30/2023 5:11 PM CDT [facility] CULTURE RESULT NO GROWTH 2 DAYS 09/01/2023 7:46 AM CDT [facility] URINE SPECIMEN OBTAINED BY CLEAN CATCH PROCEDURE / Unknown 08/30/2023 1:37 PM CDT 08/30/2023 5:21 PM CDT Prakash MARTÍNEZ MICROBIOLOGY - GENERAL ORDER ADELAIDE Final Result [facility] [address] [place] [address], [place] [phone] [facility] [address] [place] [address], [place] [phone] * (ABNORMAL) URINALYSIS AUTO DIP (08/30/2023) COLOR (U) YELLOW YELLOW [id number], [place] [facility] CLEAR CLEAR MG-[address], [facility] GLU[facility] (U) NEGATIVE NEGATIVE MG/DL MG-[address], [facility] BILIRUBIN (U) NEGATIVE NEGATIVE MG-[address], [facility] K[place]ONES MG/DL (U) NEGATIVE NEGATIVE MG/DL MG-[id number], [facility] SPECIFIC GRAVITY (U) >=1.030 1.001 - 1.035 MG-[address], [facility] BLOOD (U) NEGATIVE NEGATIVE MG-[address], [facility] U PH 5.0 5.0 - 9.0 MG-[address], [facility] PROTEIN (U) NEGATIVE NEGATIVE mg/dL MG-[address], [facility] UROBILINOGEN 0.2 0.2 - 1.0 EU/dL = mg/dL MG-[address], [facility] NITRITES NEGATIVE NEGATIVE MG/DL MG-[address], [facility] LEUKOCYTES (U) 1+ (SMALL)(A) NEGATIVE MG-[address], [facility] URINE SPECIMEN OBTAINED BY CLEAN CATCH PROCEDURE / Unknown 08/30/2023 Prakash MARTÍNEZ URINE ORDERABLES Final Resul t Performing Organization Address City/State/[facility] Co de Phone Number -[phone], [place] [address] [place] [address], documented in this encounter Visit Diagnoses Diagnosis Flank pain- Primary Abdominal pain, unspecified site Acute cystitis without hematuria Acute cystitis Flank pain Abdominal pain, unspecified site documented in this encounter Additional Health Concerns Assessment Noted Time PHQ-9 Depression Total Score: 2 05/27/20 22 11:36 AM CDT documented as of this encounter Care Teams Residential Aide Relationship Specialty [place] [address] [place] [address] PCP - General FAMILY PRACTICE 03/01/23 documented as of this encounter
--- OUTSIDE RECORDS SUMMARY | 2024-11-13 17:52 | XMS_ITS | Encounter Summary ---
Author Organization [facility] Address [address] [place] [address]. [place], [place] [address] [place] [address] Care Team Providers Care Fluoroscope Operator Name Role Phone Dayanara Plaza MD Primary Care Provider [phone] Encounter Details Date Type Department Care Team [...] Master's degree (e.g., MA, MS, Howard, MEd, SCALE TECHNICIAN, KEKE) 12/21/2018 Comments No Sex and [...] (Late Contact Info) Description 11/14/2024 8:00 AM SCIENCE FACULTY MEMBER Office Visit [facility] Multispecialty Care - [facility] 3 [facility], [address] [place] [address] Montserrat Oliver, DOREEN 3 [facility] [address] [place] [address] 12/06/2024 9:30 AM SCIENCE FACULTY MEMBER Appointment [facility] Open MRI [address] [facility] [address] [place] [address] [address] [place] [address] 03/02/2025 3:20 PM CDT Office Visit [facility] Family & Internal Medicine - [address] [phone] [place] [address] [place] [address] documented as of this encounter Visit Diagnoses Not on filedocumented in this encounter Additional Health Concerns Assessment Noted Time PHQ-9 Depression Total Score: 2 05/27/20 22 11:36 AM CDT documented as of this encounter Care Teams Fluoroscope Operator Relationship Specialty [place] [address] [address] [place] [address] PCP - General FAMILY PRACTICE 03/01/23 documented as of this encounter
--- OUTSIDE RECORDS SUMMARY | 2024-11-13 17:52 | XMS_ITS | Encounter Summary ---
Author Organization [facility] Address [address] [place] [address]. [place] [address] [place] [address] Care Team Providers Care Medical Receptionist Biller Name Role Phone Dayanara Plaza MD Primary Care Provider [phone] Perez Cervantes MD Unavailable Adriana Ma MD Unavailable [phone] Encounter Details Date Type Department Care Team (Late st Contact Info) Description 11/16/2023 [employer] Message Enc [facility] Family & Internal Medicine [facility] [address] [place] [address] [place] Plaza [place] [address] [place] [address]. [address] [place] [address] worried about drug interaction Social [...] degree (e.g., MA, MS, Howard, MEd, METAL FABRICATOR APPRENTICE, KEKE) 12/21/2018 Comments No Sex and Gender [...] st Contact Info) Description 11/14/2024 8:00 AM SWIMMING POOL PLASTERER HELPER Office Visit [facility] Multispecialty Care - [address], [address] [place] [phone] Montserrat Oliver NP 3 [facility] [address] [place] [address] 12/06/2024 9:30 AM SWIMMING POOL PLASTERER HELPER Appointment [facility] Open MRI [address] [place] [address] [place] [address] [facility]. [address] [place] [id number] 03/02/2025 3:20 PM CDT Office Visit [facility] Family & Internal Medicine - [address] [phone] [place] [address] [address] [place] [address] documented as of this encounter Visit Diagnoses Not on filedocumented in this encounter Additional Health Concerns Infection Onset Date Last Indicated Resolved Time COVID-19 Rule Out 04/03/2024 04/03/2024 04/03/2024 11:38 AM CDT Assessment Noted Time PHQ-9 Depression Total Score: 2 05/27/20 11:36 AM CDT documented as of this encounter Care Teams Medical Receptionist Biller Relationship Specialty [place] [address] [facility] [address] [place] [address] PCP - General FAMILY PRACTICE 03/01/23 Perez Cervantes MD [address] [phone] RHEUMATOLOGY 09/02/23 Adriana Ma MD [address] [place] [address] Referring Physician ALLERGY 09/02/23 documented as of this encounter
--- OUTSIDE RECORDS SUMMARY | 2024-11-13 17:52 | XMS_ITS | Encounter Summary ---
Author Organization [facility] Address [address] [place] [address]. [place] [address] [place] [address] Care Team Providers Care Prune Washer Name Role Phone Dayanara Plaza MD Primary Care Provider [phone] Encounter Details Date Type Department Care Team [...] degree (e.g., MA, MS, Howard, MEd, SECURITY STRATEGIST, KEKE) 12/21/2018 Comments No Sex and Gender [...] st Contact Info) Description 11/14/2024 8:00 AM HOME THEATER INSTALLER Office Visit [facility] Multispecialty Care - [facility] 3 [facility], [address] [place] [address] Montserrat Oliver, DOREEN 3 [facility] [address] [place] [address] 12/06/2024 9:30 AM HOME THEATER INSTALLER Appointment [facility] Open MRI [address] [place] [address] [place] [address] [employer] [place] [address] 03/02/2025 3:20 PM CDT Office Visit [facility] Family & Internal Medicine - [place] [address] [place] [address] [place] [address] [facility] [address] [place] [address] documented as of this encounter Visit Diagnoses Not on filedocumented in this encounter Additional Health Concerns Assessment Noted Time PHQ-9 Depression Total Score: 2 05/27/20 22 11:36 AM CDT documented as of this encounter Care Teams Prune Washer Relationship Specialty [place] [address] [facility] [address] [place] [address] PCP - General FAMILY PRACTICE 03/01/23 documented as of this encounter
--- OUTSIDE RECORDS SUMMARY | 2024-11-13 17:52 | XMS_ITS | Encounter Summary ---
Author Organization [facility] Address [address] [place] [address]. [place] [address] [place] [address] Care Team Providers Care Weblogic Administrator Name Role Phone Dayanara Plaza MD Primary Care Provider Reason for Visit * Reason Onset Date Comments Other 03/08/2023 Encounter Details Date Type Department Care Team (Late st Contact Info) Description 03/08/[address] [address] [place] [address] [facility]. [address] [place] [address] Other Social History Tobacco Use [...] Master's degree (e.g., MA, MS, Howard, MEd, INVESTIGATIONS CONSULTANT, KEKE) 12/21/2018 Comments No Sex and Gender [...] st Contact Info) Description 11/14/2024 8:00 AM MASTER TAX ADVISOR Office Visit [facility] Multispecialty Care - [address], [address] [place] [phone] Montserrat Oliver NP 3 [facility] [address] [place] [address] 12/06/2024 9:30 AM MASTER TAX ADVISOR Appointment [facility] Open MRI [address] [place] [address] [place] [address] [facility] [address] [place] [address] 03/02/2025 3:20 PM CDT Office Visit [facility] Family & Internal Medicine - [address] [address] [place] [address] [address] [place] [address] documented as of this encounter Visit Diagnoses Not on filedocumented in this encounter Additional Health Concerns Assessment Noted Time PHQ-9 Depression Total Score: 2 05/27/20 22 11:36 AM CDT documented as of this encounter Care Teams Weblogic Administrator Relationship Specialty [place] [address] [address] [place] [address] PCP - General FAMILY PRACTICE 03/01/23 documented as of this encounter
--- OUTSIDE RECORDS SUMMARY | 2024-11-13 17:52 | XMS_ITS | Encounter Summary ---
Author Organization [facility] Address [address] [place] [address]. [place], [place] [id number] [place] [address] Care Team Providers Care Revival Clerk Name Role Phone Izzy Plaza MD Primary Care Provider [phone] Perez Cervantes MD Unavailable Adriana Ma MD Unavailable [phone] Reason for Referral * Imaging (Routine) - Pending Review Specialty Diagnoses / Procedures Referred By Contac t Referred To Contact RADIOLOGY Diagnoses Encounter for osteoporosis screening in asymptomatic postmenopausal patient Procedures BONE DENSITY[place] [address] [address] [place] [address] Phone: tel: fax: Referral ID Status Reason Start Date Expiration Date V isits Requested Visits Authorized [id number] Pending Review 01/17/2024 02/15/2025 1 1 Reason for Visit * Imaging (Routine) - Pending Review Specialty Diagnoses / Procedures Referred By Contkayden t Referred To Contact RADIOLOGY Diagnoses Encounter for osteoporosis screening in asymptomatic postmenopausal patient Procedures BONE DENSITY[place] [address] [address] [place] [address] Phone: tel: fax: Referral ID Status Reason Start Date Expiration Date V isits Requested Visits Authorized [id number] Pending Review 01/17/2024 02/15/2025 1 1 Encounter Details Date Type Department Care Team (Latest Contact Info) Description 01/27/2024 2:45 PM CDT - 01/27/2024 11:59 PM CDT Hospital Encounter [facility] [address] [place] [id number] [place] [address] [address] [place] [address] Discharge Disposition: Home or Self [...] Master's degree (e.g., MA, MS, Howard, MEd, CEO, KEKE) 12/21/2018 Comments No Sex and Gender [...] mouth 2 (two) times daily. 11/24/2021 4 [place]-3 Fatty Acids (FISH OIL) 1200 MG Cap [...] st Contact Info) Description 11/14/2024 8:00 AM HEMMER CHAINSTITCH Office Visit [facility] Multispecialty Care - [facility] 3 [facility], [address] [place] [phone] Montserrat Oliver NP 3 [facility] [address] [place] [address] 12/06/2024 9:30 AM HEMMER CHAINSTITCH Appointment [facility] MRI [address] [place] [address] [place] [address] [facility] [address] [place] [address] 03/02/2025 3:20 PM CDT Office Visit [facility] Family & Internal Medicine - [address] [phone] [place] [address] [facility] [address] [place] [address] documented as of this encounter Procedures Procedure [...] bone mineral density test. [facility], routine testing is allowed once every [...] documented as of this encounter Care Teams Revival Clerk Relationship Specialty [place] [address] [facility] [address] [place] [address] PCP - General FAMILY PRACTICE 03/01/23 Perez Cervantes MD [address] [address] RHEUMATOLOGY 09/02/23 Adriana Ma MD [address] [place] [address] Referring Physician ALLERGY 09/02/23 documented as of this encounter
--- OUTSIDE RECORDS SUMMARY | 2024-11-13 17:52 | XMS_ITS | Encounter Summary ---
Author Organization [facility] Address [address] [place] [address]. [place] [address] [place] [address] Care Team Providers Care Mail Sorting Supervisor Name Role Phone Dayanara Plaza MD Primary Care Provider [phone] Perez Cervantes MD Unavailable Adriana Ma MD Unavailable [phone] Reason for Visit * Auth/Cert (Routine) Specialty Diagnoses / Procedures Referred By Chalino bazan Referred To Contact Diagnoses PLANTAR FASCITIS Procedures ENDOSCOPIC PLANTAR FASCIA RELEASE RIGHT FOOT Rhiannon Lombardi DPM [address] [address] Phone: tel: fax: Referral ID Status Reason Start Date Expiration Date Visits Re quested Visits Authorized [id number] 1 1 Encounter Details Date Type Department Care Team (Latest Contact Info) Description 09/10/2023 7:53 AM CDT - 09/10/2023 12:56 PM CDT Hospital Encounter [facility] [place] [address] Rhiannon Lombardi DPM [address] [phone] Discharge Disposition: Home or Self Care (Routine [...] Master's degree (e.g., MA, MS, Howard, MEd, JACKAROO, KEKE) 12/21/2018 Comments No Sex and Gender [...] Care Everywhere. * Plantar Fasciotomy Discharge Instructions (Ivorian) * Surgical Wound Discharge Instructions (Ivorian) documented in this encounter Medications at Time [...] mouth 2 (two) times daily. 11/24/2021 4 [place]-3 Fatty Acids (FISH OIL) 1200 MG Cap Take 1 capsule by mouth daily. 4 polyethylene glycol packet Take 240 mLs (1 packet total) by mouth daily as needed. 4 documented as of this encounter H&P Notes * Rhiannon Lombardi DPM - 09/10/2023 9:58 AM CDT [facility] 58-year-[facility] female Date of Service: 09/10/2023 CHIEF [...] Inflammatory arthritis Plantar fasciitis RA (rheumatoid arthritis) ([facility] ([facility]) Wears glasses PSH: Past Surgical History: Procedure Laterality Date CHOLECYSTECTOMY COLONOSCOPY AH 9 yrs. COLONOSCOPY N/A 03/17/2021 COLONOSCOPY-NORMAL performed by Niall Matute MD at [facility] GI EYE SURGERY 2020 cataract extraction LAMINECTOMY,LUMBAR SEPTOPLASTY ALL: Allergies Allergen Reactions Levofloxacin Nausea and Vomiting, Nausea Only, Hallucinations and Other (see comment) hallucinations Other reaction(s): Other hallucinations MEDS: Current: ceFAZolin 2 g Intravenous Hybrid Derivatives Trader to OR scopolamine 1 patch Transdermal Q72H Current Facility-Administered Medications: ceFAZolin (ANCEF) 2 g in NS 100 mL IVPB, 2 g, Intravenous, Hybrid Derivatives Trader to OR, Rhiannon Lombardi DPM scopolamine (TRANSDERM-SCOP) 1 MG/3DAYS patch 1 patch, 1 patch, Transdermal, Q72H, Osiel Sahu MD, 1 patch at 09/10/23 0850 Social History Socioeconomic History Marital status: Spouse name: Cl Number of children: 4 Highest education level: Master's degree (e.g., MA, MS, Howard, MEd, JACKAROO, KEKE) 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 Signature/Date: RHIANNON LOMBARDI #[id number] /DOIRS LER MACHINE OPERATOR * OR PreOp - Hilaria Powers CNP - 09/02/2023 12:59 PM CDT Chart reviewed. Per phone interview, patient denies any SOB/CP with 2 FOS or recent changes in activity tolerance in past 6 months. Per phone interview, patient denies having a boring machine operator horizontal. Recent EKG copied. EKG 09/01/23 SINUS RHYTHM [...] EKG - 09/01/23 Do you see a boring machine operator horizontal? Who is it? No Covid vaccinated and [...] st Contact Info) Description 11/14/2024 8:00 AM TUMBLER MACHINE OPERATOR [facility] 3 [facility], [address] [place] [phone] Montserrat Oliver NP 3 [facility] [address] [place] [address] 12/06/2024 9:30 AM TUMBLER MACHINE OPERATOR Appointment [facility] Open MRI [address] [place] [address] [place] [address] [address] [place] [phone] 03/02/2025 3:20 PM CDT [facility] [address] [place] [address] [place] [address] [facility]. [address] [place] [address] documented as of this encounter [...] (COMPLETED) 2 g, Intravenous, at 200 mL/hr, scallop dredger to O.R., 1 dose, First dose on [...] documented as of this encounter Care Teams Mail Sorting Supervisor Relationship Specialty [place] [address] [facility] [address] [place] [address] PCP - General FAMILY PRACTICE 03/01/23 Perez Cervantes MD [facility] [place] [phone] RHEUMATOLOGY 09/02/23 Adriana Ma MD [address] [place] [phone] Referring Physician ALLERGY 09/02/23 documented as of this encounter
--- OUTSIDE RECORDS SUMMARY | 2024-11-13 17:52 | XMS_ITS | Encounter Summary ---
Author Organization [facility] Address [address] [place] [address]. [place] [address] [place] [address] Care Team Providers Care Computer Discovery Teacher Name Role Phone Dayanara Plaza MD Primary Care Provider [phone] Perez Cervantes MD Unavailable Adriana Ma MD Unavailable [phone] Encounter Details Date Type Department Care Team [...] Master's degree (e.g., MA, MS, Howard, MEd, FARM EQUIPMENT TECHNICIAN, KEKE) 12/21/2018 Comments No Sex and [...] st Contact Info) Description 11/14/2024 8:[address] DESIGN ENGINEER Office Visit [facility] Multispecialty Care - [facility] 3 [facility], [address] [place] [address] Montserrat Oliver NP 3 [facility] [address] [place] [address] 12/06/2024 9:[address] DESIGN ENGINEER Appointment [facility] Open MRI [address] [place] [address] [place] [address] [employer] [place] [address] 03/02/2025 3:20 PM CDT Office Visit [facility] Family & Internal Medicine - [place] [phone] [place] [phone] [place] [address] [facility] [address] [place] [address] documented as of this encounter Visit Diagnoses Not on filedocumented in this encounter Additional Health Concerns Assessment Noted Time PHQ-9 Depression Total Score: 2 05/27/20 22 11:36 AM CDT documented as of this encounter Care Teams Computer Discovery Teacher Relationship Specialty Start Date End Date Dayanara Plaza MD [address] [place] [address] Ave[address] [place] [address] PCP - General FAMILY PRACTICE 03/01/23 Perez Cervantes MD [address] [place] [phone] RHEUMATOLOGY 09/02/23 Adriana Ma MD [address] [place] [address] Referring Physician ALLERGY 09/02/23 documented as of this encounter
--- OUTSIDE RECORDS SUMMARY | 2024-11-13 17:52 | XMS_ITS | Encounter Summary ---
Author Organization [facility] Address [address] [place] [address]. [place] [address] [place] [address] Care Team Providers Care Legislative Correspondent Name Role Phone Dayanara Plaza MD Primary Care Provider [phone] Perez Cervantes MD Unavailable Adriana Ma MD Unavailable [phone] Reason for Visit * Reason Comments Gi Problem Encounter Details Date Type Department Care Team (Late st Contact Info) Description 05/22/2024 8:38 AM CDT - 05/22/2024 1:41 PM CDT Emergency [facility] Emergency Room [address] [place] [address] Nimisha Ruano MD [address] [place] [address] Gi Problem Discharge Disposition: Home or [...] from your doctor or pharmacy? Never 05/23/2024 [facility] Utilities Answer Date Recorded In the past 12 months has [employer], gas, oil, or water [employer] threatened to shut off services in your [...] 0 04/03/2024 [facility] [place] of Occupat ional Health - Occupational Stress [...] any time in the past 12 m [facility], were you homeless or living in a long term (including now)? No 05/23/2024 Education Answer Date Recorded What is the highest level of school you have completed or the highest degree you have received? Master's degree (e.g., MA, MS, Howard, MEd, GARMENT FITTER, KEKE) 12/21/2018 Comments No Sex and [...] 05/22/2024 12:59 PM CDT Follow up with aircraft log clerk and your primary care provider. Continue the antibiotics that were previously prescribed. Return if symptoms worsen. * Attachments The following attachments cannot be sent through Care Everywhere. * Nausea and Vomiting Discharge Instructions, Adult (Scottish) documented in this encounter Medications at Time [...] 4 oxyCODONE-acetaminop hen (PERCOCET) 5-325 MG tabletIndications:Ac [place] Pain < 3 Day Supply Take 1 [...] Inflammatory arthritis Plantar fasciitis RA (rheumatoid arthritis) ([facility]) Wears glasses PAST SURGICAL HISTORY: Past Surgical History: Procedure Laterality Date CHOLECYSTECTOMY COLONOSCOPY N/A 03/17/2021 COLONOSCOPY-NORMAL performed by Niall Matute MD at [facility] GI COLONOSCOPY STOMA DX INCLUDING COLLJ [...] encounter of 05/22/24 ECG 12 lead [facility]arrative [facility] Test Date: 2024-05-22 Pat Name: [facility] Department: 85 Room: EXAM 505 Gender: Female Health Care Assistant: : 1965 Requested By: NIMISHA RUANO Order Number: [id number] Reading MD: Measurements Intervals [place] Rate: 73 P: 82 NH: 168 QRS: 58 QRSD: 89 T: 48 [...] st Contact Info) Description 11/14/2024 8:00 AM ECOMMERCE MERCHANDISING MANAGER Office Visit [facility] - [facility] 3 [facility], [address] [place] [phone] Montserrat Oliver NP 3 [facility] [address] [place] [address] 12/06/2024 9:30 AM ECOMMERCE MERCHANDISING MANAGER Appointment [facility] Open MRI [address] [place] [address] [place] [address] [place], [place] [phone] 03/02/2025 3:20 PM CDT Office Visit [facility] Family & Internal Medicine [address] [address] [place] [address] [place] [address] documented as of this encounter Procedures Procedure [...] - 11.0 x10'3/uL 05/22/2024 9:13 AM CDT [facility] RBC 4.11(L) 4.50 - 5.10 x10'6/uL 05/22/2024 9:13 AM CDT [facility] HGB 13.6 12.3 - 15.3 G/DL 05/22/2024 9:13 AM CDT [facility] HCT 40.3 35.9 - 44.6 % 05/22/2024 9:13 AM CDT [facility] MCV 98.1(H) 80.0 - 96.0 FL 05/22/2024 9:13 AM CDT [facility] MCH 33.1(H) 25.3 - 30.9 PG 05/22/2024 9:13 AM T [facility] MCHC 33.7 31.0 - 34.1 G/DL 05/22/2024 9:13 AM T [facility] RDW 14.6 12.4 - 15.1 % 05/22/2024 9:13 AM T [facility] PLT 221 151 - 353 x10'3/uL 05/22/2024 9:13 AM T [facility] MPV 10.2 9.6 - 12.0 FL 05/22/2024 9:13 AM T [facility] RBC MORPHOLOGY NORMAL 05/22/2024 9:13 AM T [facility] PLT MORPH. NORMAL 05/22/2024 9:13 AM [facility] WBC MORPHOLOGY NORMAL 05/22/2024 9:13 AM T [facility] LYMPHOCYTES % 9.6(L) 15.8 - 45.0 % 05/22/2024 9:13 AM [facility] NEUTROPHILS % 84.2(H) 42.1 - 71.9 % 05/22/2024 9:13 AM T [facility] MONOCYTES % 5.4(L) 5.7 - 12.5 % 05/22/2024 9:13 AM [facility] EOSINOPHILS 0.2 0.0 - 5.6 % 05/22/2024 9:13 AM T [facility] BASOPHILS 0.2 0.0 - 1.3 % 05/22/2024 9:13 AM T [facility] ABS. NEUTROPHILS 8.42(H) 1.40 - 6.00 x10'3/uL 05/22/2024 9:13 AM CDT [facility] IMMATURE GRANS % 0.4 0.0 - 0.5 % 05/22/2024 9:13 AM CDT [facility] ABS. LYMPHOCYTES 0.96 0.80 - 4.70 x10'3/uL 05/22/2024 9:13 AM CDT [facility] 05/22/2024 8:55 AM CDT Nimisha Ruano MD LABORATORY Final Result [facility] [address] [place] [address], [place] [phone] * MAGNESIUM (05/22/2024 8:55 AM CDT) MAGNESIUM 1.9 1.8 - 2.4 MG/DL 05/22/2024 9:22 AM CDT [facility] 05/22/2024 8:55 AM CDT Nimisha Ruano MD LABORATORY Final Result [facility] [address] [place] [address], [place] [phone] * (ABNORMAL) COMPREHENSIVE METABOLIC PANEL (05/22/2024 8:55 AM CDT) GLUCOSE 137(H) 70 - 99 MG/DL 05/22/2024 9:22 AM CDT [facility] BUN 18 7 - 18 MG/DL 05/22/2024 9:22 AM CDT [facility] CREATININE S/P/B 0.94 0.55 - 1.02 MG/DL 05/22/2024 9:22 AM CDT [facility] SODIUM S/P/B 139 136 - 145 MMOL/L 05/22/2024 9:22 AM [facility] POTASSIUM S/P/B 4.1 3.5 - 5.1 MMOL/L 05/22/2024 9:22 AM [facility] CHLORIDE S/P/B 101 100 - 108 MMOL/L 05/22/2024 9:22 AM [facility] CO2 27.0 21 - 32 MMOL/L 05/22/2024 9:22 AM [facility] CALCIUM S/P/B 10.4(H) 8.5 - 10.1 MG/DL 05/22/2024 9:22 AM [facility] BILIRUBIN TOTAL S/P/B 0.6 0.2 - 1.2 MG/DL 05/22/2024 9:22 AM [facility] TOTAL PROTEIN S/P/B 7.8 6.4 - 8.2 G/DL 05/22/2024 9:22 AM [facility] ALBUMIN S/P/B 3.7 3.4 - 5.0 G/DL 05/22/2024 9:22 AM [facility] AST 22 15 - 37 U/L 05/22/2024 9:22 AM [facility] ALT 29 14 - 55 U/L 05/22/2024 9:22 AM [facility] ALKALINE PHOSPHATASE S/P/B 117 50 - 136 U/L 05/22/2024 9:22 AM [facility] ANION GAP 11.0 5 - 15 MMOL/L 05/22/2024 9:22 AM [facility] BUN CREATININE RATIO 19.1 6 - 26 05/22/2024 9:22 AM [facility] A/G RATIO 0.9(L) 1.0 - 2.0 RATIO 05/22/2024 9:22 AM CDT [facility] GFR ESTIMATE 69(L) >90 ML/MIN/1.7 3 M2 05/22/2024 9:22 AM CDT [facility] Comment: [...] us Nimisha Ruano MD LABORATORY Final Result [facility] [address] [place] [address], * ECG 12 lead (05/22/2024 8:53 AM CDT) 05/22/2024 8:53 AM CDT Narrative [facility] RAD - 05/22/2024 11:02 PM CDT [facility] Test Date: ?2024-05-22 Pat Name: ? HANS PASCUAL ? Department: ?? 85 ? Room: ? EXAM 505 Gender: ? Female ? Health Care Assistant: ?? : ?1965 ? Requested By: NIMISHA White Number: [id number] ? Reading MD: ?? Guanako Hancock ? Measurements Intervals ?[place] ? Rate: ? 73 ? P: ?82 NH: ? 168 ?QRS: ?58 QRSD: ? 89 ? T: ?48 QT: ? 381 ? QTc: ?422 ? Interpretive Statements SINUS RHYTHM Compared to ECG 09/01/2023 11:48:43 No significant changes Procedure Note Guanako Hancock MD - 05/22/2024 [facility] Test Date: 2024-05-22 Pat Name: [facility] Department: 85 Room: EXAM 505 Gender: Female Health Care Assistant: : 1965 Requested By: NIMISHA RUANO Order Number: [id number] Reading MD: Guanako Hancock Measurements Intervals [place] Rate: 73 P: 82 NH: 168 QRS: 58 QRSD: 89 T: 48 QT: 381 QTc: 422 Interpretive Statements SINUS RHYTHM Compared to ECG 09/01/2023 11:48:43 No significant changes us Nimisha Ruano MD ECG ORDERABLES Final Result [facility] RAD documented in this encounter [...] documented as of this encounter Care Teams Legislative Correspondent Relationship Specialty [place] [address] [address] [place] [address] PCP - General FAMILY PRACTICE 03/01/23 Perez Cervantes MD [address] [place] [phone] RHEUMATOLOGY 09/02/23 Adriana Ma MD [address] [place] [address] Referring Physician ALLERGY 09/02/23 documented as of this encounter
--- OUTSIDE RECORDS SUMMARY | 2024-11-13 17:52 | XMS_ITS | Encounter Summary ---
Author Organization [facility] Address [address] [place] [address]. [place], [place] [address] [place] [address] Care Team Providers Care Medical Office Asst Name Role Phone Izzy Plaza MD Primary Care Provider [phone] Reason for Visit * Reason Comments Surgical Clearance Pt having plantar fa scitis sx on right foot on 09/10 Encounter Details Date Type Department Care Team (Late st Contact Info) Description 09/01/2023 11:00 AM CDT Office Visit [facility] Medical Group Family & Internal Medicine [facility] [address] [place] [address] Izzy Plaza MD [address] [place] [address]. [address] [place] [address] Surgical Clearance (Pt having plantar fascitis [...] Master's degree (e.g., MA, MS, Howard, MEd, DOOR LINER, KEKE) 12/21/2018 Comments No Sex and Gender [...] foot on 09/10) History of Present Illness: [facility] pleasant 58-year-old female with past [...] or anticoagulants- NO 5.Aspirin - NO SPECIALISTS: nuclear medicine medical director, Funeral Service Licensee. No other concerns for today ROS: Review [...] 2 (two) times daily., Disp: , Rfl: [place]-3 Fatty Acids (FISH OIL) 1200 MG Cap, [...] bowel syndrome) Inflammatory arthritis RA (rheumatoid arthritis) ([facility]/HCC) ([facility]) Wears glasses Past Surgical History: Procedure Laterality Date CHOLECYSTECTOMY COLONOSCOPY AH 9 yrs. 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 Normal CXR yesterday at [facility]-no acute abnormality Advise preop EKG today. Revised [...] st Contact Info) Description 11/14/2024 8:00 AM BIOLOGICAL SCIENCE TECHNICIAN Office Visit [facility] Medical Group Multispecialty Care - [facility] 3 [facility], [address] [place] [phone] Montserrat Oliver NP 3 [facility] [address] [place], [place] [address] 12/06/2024 9:30 AM BIOLOGICAL SCIENCE TECHNICIAN Appointment [facility] Open MRI [address] [place] [address] [place] [address] [address] [place] [address] 03/02/2025 3:20 PM CDT Office Visit [facility] Medical Group Family & Internal Medicine [facility] [address] [place] [address] [place] [address] [facility]. [address] [place] [address] documented as of this encounter Results * ECG 12 lead (Hosp Performed) (09/01/2023 11:48 AM CDT) 09/01/2023 11:4 8 AM CDT Narrative [facility] RAD - 09/04/2023 10:13 AM CDT ?[facility] ? Test Date: ?2023-09-01 Pat Name: ? HANS PASCUAL ? Department: ?? 85 ? Room: ? Gender: ? Female ? Towel Cabinet Repairer: ?? : ?1965 ? Requested By: IZZY PLAZA Order Number: [id number] ? Reading : ?? Clement Young ? Measurements Intervals ?[place] ? Rate: ? 65 ? P: ?75 HI: ? 194 ?QRS: ?69 QRSD: ? 90 ? T: ?56 QT: ? 375 ? QTc: ?391 ? Interpretive Statements SINUS RHYTHM No previous ECG available for comparison Procedure Note Clement Young MD - 09/04/2023 [facility] Test Date: 2023-09-01 Pat Name: [facility]ANS [facility] Department: 85 Room: Gender: Female Towel Cabinet Repairer: : 1965 Requested By: IZZY PLAZA Order Number: [id number] Reading MD: Clement Young Measurements Intervals [place] Rate: 65 P: 75 HI: 194 QRS: 69 QRSD: 90 T: 56 QT: 375 QTc: 391 Interpretive Statements SINUS RHYTHM No previous ECG available for comparison Izzy Plaza MD ECG ORDERABLES Final Result [facility] ([facility]) [facility] documented in this encounter Visit [...] as of this encounter Care Teams Medical Office Asst Relationship Specialty [place] [address] [facility]. [address] [place] [address] PCP - General FAMILY PRACTICE 03/01/23 documented as of this encounter
--- OUTSIDE RECORDS SUMMARY | 2024-11-13 17:53 | XMS_ITS | Encounter Summary ---
Author Organization [facility] Address [address] [place] [address]. [place], [place] [address] [place] [address] Care Team Providers Care Yarn Finisher Name Role Phone Jaspreet Pearl MD Primary Care Provider U Kelsey Dey NP Primary Care Provider [phone] Dayanara Plaza MD Primary Care Provider [phone] Perez Cervantes MD Unavailable Adriana Ma MD Unavailable [phone] Encounter Details Date Type Department Care Team (Late st Contact Info) Description 07/30/2022 [employer] Message Enc [facility] Medical Group Family & Internal Medicine [address] [address] Jaspreet Pearl MD Still sick [...] Master's degree (e.g., MA, MS, Howard, MEd, CLINICAL MEDICAL TRANSCRIPTIONIST, KEKE) 12/21/2018 Comments No Sex and Gender [...] st Contact Info) Description 11/14/2024 8:00 AM POULTRY VACCINATOR Office Visit [facility] Medical Group Multispecialty Care - [facility] 3 [facility], [address] [place] [phone] Montserrat Oliver NP 3 [facility] [address] [place] [address] 12/06/2024 9:30 AM POULTRY VACCINATOR Appointment [facility] Open MRI [address] [place] [address] [place] [address] [place] [address] 03/02/2025 3:20 PM CDT Office Visit [facility] Medical Group Family & Internal Medicine - [place] [address] [place] [phone] [place] [address] [place] [address] documented as of this encounter Visit Diagnoses Not on filedocumented in this encounter Additional Health Concerns Infection Onset Date Last Indicated Resolved Time COVID-19 Rule Out 04/03/2024 04/03/2024 04/03/2024 11:38 AM CDT Assessment Noted Time PHQ-9 Depression Total Score: 2 05/27/20 22 11:36 AM CDT documented as of this encounter Care Teams Yarn Finisher Relationship Specialty Start Date End Date Jaspreet Pearl MD PCP - General INTERNAL MEDICINE 11/30/18 02/18/23 [place] [address] [address] [place] [address] PCP - General Nurse Practitioner Family 02/19/23 02/28/23 [place] [address] [place] [address] PCP - General FAMILY PRACTICE 03/01/23 Perez Cervantes MD [facility] [place] [address] RHEUMATOLOGY 09/02/23 Adriana Ma MD [address] [place] [address] Referring Physician ALLERGY 09/02/23 documented as of this encounter
--- OUTSIDE RECORDS SUMMARY | 2024-11-13 17:53 | XMS_ITS | Encounter Summary ---
Author Organization [facility] Address [address] [place] [address]. [place] [address] [place] [address] Care Team Providers Care Clinical Partner Name Role Phone Jaspreet Pearl MD Primary Care Provider Felipe juan carlos Encounter Details Date Type Department Care Team (Late st Contact Info) Description 09/14/2022 Orders Only [facility] Medical Group Family & Internal Medicine [address] [address] Jaspreet Pearl MD Social History [...] Master's degree (e.g., MA, MS, Howard, MEd, COMMUNICATIONS SPECIALIST, KEKE) 12/21/2018 Comments No Sex and [...] Contact Info) Description 11/14/2024 8:00 AM SUPERVISOR FILTER ASSEMBLY Office Visit [facility] Multispecialty Care - [facility] 3 [facility], [address] [place] [address] Montserrat Oliver NP 3 [facility] [address] [place] [address] 12/06/2024 9:30 AM SUPERVISOR FILTER ASSEMBLY Appointment [facility] Open MRI [address] [place] [address] [place] [address] [facility]. [address] [place] [address] 03/02/2025 3:20 PM CDT Office Visit [facility] Family & Internal Medicine - [address] [address] [place] [address] [facility]. [address] [place] [address] documented as of this encounter Visit Diagnoses Diagnosis COVID-19- Primary documented in this encounter Additional Health Concerns Assessment Noted Time PHQ-9 Depression Total Score: 2 05/27/20 22 11:36 AM CDT documented as of this encounter Care Teams Clinical Partner Relationship Specialty Start Date End Date Jaspreet Pearl MD PCP - General INTERNAL MEDICINE 11/30/18 02/18/23 documented as of this encounter
--- OUTSIDE RECORDS SUMMARY | 2024-11-13 17:53 | XMS_ITS | Encounter Summary ---
Author Organization [facility] Address [address] [place] [address]. [place] [address] [place] [address] Care Team Providers Care Executive Chairman Name Role Phone Jaspreet Pearl MD Primary [...] degree (e.g., MA, MS, Howard, MEd, MANAGER GENERATION, KEKE) 12/21/2018 Comments No Sex and Gender [...] (Late Contact Info) Description 11/14/2024 8:00 AM ASSISTANT HAIRSTYLIST Office Visit [facility], [address] [place] [address] Montserrat Oliver, DOREEN 3 [facility] [address] [place] [address] 12/06/2024 9:30 AM ASSISTANT HAIRSTYLIST Appointment [facility] Open MRI [address] [place] [address] [place] [address] [facility] [address] [place], [place] [phone] 03/02/2025 3:20 PM CDT Office Visit [facility] Family & Internal Medicine - [address] [phone] [place] [address] [place], [place] [phone] documented as of this encounter Visit Diagnoses Not on filedocumented in this encounter Additional Health Concerns Assessment Noted Time PHQ-9 Depression Total Score: 0 05/02/20 21 2:11 PM CDT documented as of this encounter Care Teams Executive Chairman Relationship Specialty Start Date End Date Jaspreet Pearl MD PCP - General INTERNAL MEDICINE 11/30/18 02/18/23 documented as of this encounter
--- OUTSIDE RECORDS SUMMARY | 2024-11-13 17:53 | XMS_ITS | Encounter Summary ---
Author Organization [facility] Address [address] [place] [address]. [place], [place] [address] [place] [address] Care Team Providers Care Spring Tier Name Role Phone Jaspreet Pearl MD Primary Care Provider U juan carlos Reason for Visit * Reason Onset Date Comments Question 02/24/2021 Encounter Details Date Type Department Care Team (Late st Contact Info) Description 02/24/2021 Telephone [facility] Medical Group Family & Internal Medicine [address] [address] Jaspreet Pearl MD Question Social [...] Master's degree (e.g., MA, MS, Howard, MEd, ABATTOIR MANAGER, KEKE) 12/21/2018 Comments No Sex and [...] and cant leave message-will send message via [employer] * Barb Vital RN - 02/24/2021 11:44 [...] an MRI orwait another week c/b # [phone] documented in this encounter Plan of Treatment Upcoming Encounters Date Type Department Care Team (Late st Contact Info) Description 11/14/2024 8:00 AM FACILITY EXAMINER Office Visit [facility] Medical Group Multispecialty Care - [facility] 3 [facility], [address] [place] [address] Montserrat Oliver NP 3 [facility] [address] [place] [address] 12/06/2024 9:30 AM FACILITY EXAMINER Appointment [facility] Open MRI [address] [place] [address] [place] [address] [address] [place] [address] 03/02/2025 3:20 PM CDT Office Visit [facility] Medical Group Family & Internal Medicine - [address] [phone] [place] [address] [place] [address] documented as of this encounter Visit Diagnoses Not on filedocumented in this encounter Additional Health Concerns Assessment Noted Time PHQ-9 Depression Total Score: 4 05/01/20 19 3:05 PM CDT documented as of this encounter Care Teams Spring Tier Relationship Specialty Start Date End Date Jaspreet Pearl MD PCP - General INTERNAL MEDICINE 11/30/18 02/18/23 documented as of this encounter
--- OUTSIDE RECORDS SUMMARY | 2024-11-13 17:53 | XMS_ITS | Encounter Summary ---
Author Organization [facility] Address [address] [place] [address]. [place] [address] [place] [address] Care Team Providers Care Business Attorney Name Role Phone Jaspreet Pearl MD Primary [...] degree (e.g., MA, MS, Howard, MEd, SALES TRAINEE, KEKE) 12/21/2018 Comments No Sex and Gender [...] COVID-19? No / Unsure 11/11/2021 8:18 AM PINION AND WHEEL TRUER documented as of this encounter Plan of Treatment Upcoming Encounters Date Type Department Care Team (Late st Contact Info) Description 11/14/2024 8:00 AM PINION AND WHEEL TRUER Office Visit [facility] Multispecialty Care - [facility] 3 [facility], [address] [place] [phone] Montserrat Oliver NP 3 [facility] [address] [place] [address] 12/06/2024 9:30 AM PINION AND WHEEL TRUER Appointment [facility] Open MRI [address] [place] [address] [place] [address] [facility]. [address] [place] [address] 03/02/2025 3:20 PM CDT Office Visit [facility] Family & Internal Medicine - [address] [address] [place] [address] [facility]. [address] [place] [address] documented as of this encounter Visit Diagnoses Not on filedocumented in this encounter Additional Health Concerns Assessment Noted Time PHQ-9 Depression Total Score: 0 05/02/20 21 2:11 PM CDT documented as of this encounter Care Teams Business Attorney Relationship Specialty Start Date End Date Jaspreet Pearl MD PCP - General INTERNAL MEDICINE 11/30/18 02/18/23 documented as of this encounter
--- OUTSIDE RECORDS SUMMARY | 2024-11-13 17:53 | XMS_ITS | Encounter Summary ---
Author Organization [facility] Address [address] [place] [address]. [place] [address] [place] [address] Care Team Providers Care Supervisor Asphalt Paving Name Role Phone Jaspreet Pearl MD Primary [...] Master's degree (e.g., MA, MS, Howard, MEd, TRADE ANALYST, KEKE) 12/21/2018 Comments No Sex and [...] (Late Contact Info) Description 11/14/2024 8:00 AM CARRIER PACKER Office Visit [facility] Multispecialty Care - [facility] 3 [facility], [address] [place] [address] Montserrat Oliver NP 3 [facility] [address] [place] [address] 12/06/2024 9:30 AM CARRIER PACKER Appointment [facility] Open MRI [address] [facility] [place] [address] [place] [address] [facility] [place] [address] 03/02/2025 3:20 PM CDT Office Visit [facility] Family & Internal Medicine - [address] [phone] [place] [address] [facility]. [address] [place] [address] documented as of this encounter Visit Diagnoses Not on filedocumented in this encounter Additional Health Concerns Assessment Noted Time PHQ-9 Depression Total Score: 4 05/01/20 19 3:05 PM CDT documented as of this encounter Care Teams Supervisor Asphalt Paving Relationship Specialty Start Date End Date Jaspreet Pearl MD PCP - General INTERNAL MEDICINE 11/30/18 02/18/23 documented as of this encounter
--- OUTSIDE RECORDS SUMMARY | 2024-11-13 17:53 | XMS_ITS | Encounter Summary ---
Author Organization [facility] Address [address] [place] [address]. [place] [address] [place] [address] Care Team Providers Care Track Grinder Name Role Phone Jaspreet Pearl MD Primary Care Provider U navailable Reason for Visit * Auth/Cert Specialty Diagnoses / Procedures Referred By Contac t Referred To Contact Diagnoses Pharyngoesophageal dysphagia Encounter for screening colonoscopy Screening and pharynesophageal dysphagia Procedures COLONOSCOPY EGD Referral ID Status Reason Start Date Expiration Date Visits Re quested Visits Authorized [id number] 1 1 Encounter Details Date Type Department Care Team (Late st Contact Info) Description 03/17/2021 9:20 AM CDT - 03/17/2021 9:40 AM CDT Surgery [facility] Endo/[place], [place] [address] Niall Matute MD [address] [address] COLONOSCOPY-NORMAL Surgery Details Date/Time Status Location OR Service Patient Class Case Class Case Type Trauma Case? 03/17/2021 9:20 AM Posted [facility] E - Elective No Panel 1 [...] Master's degree (e.g., MA, MS, Howard, MEd, HOUSEHOLD APPLIANCES SERVICE TECHNICIAN, KEKE) 12/21/2018 Comments No Sex and [...] through Care Everywhere. * Colonoscopy Discharge Instructions (Citizen [place]) * General Anesthesia Discharge Instructions (Citizen [place]) * Upper GI Endoscopy Discharge Instructions (Citizen [place]) documented in this encounter Medications at Time [...] mouth daily. 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 OpNote COLONOSCOPY-NORMAL, EGD, NEGATIVE Procedure Note Hans Pascual 03/17/2021 0920 Procedure(s) (LRB): COLONOSCOPY-NORMAL (N/A) EGD, NEGATIVE (N/A) Surgeon(s): Niall Matute MD Staff: GI Nurse: Martha Villeda RN photo print specialist: Heather Liz CNA Anesthesia: General Anesthesiologist: Dawna Cifuentes MD PRODUCT LISTER: Elvira Farr CRNA; Con Hopper CRNA Pre-Op [...] Contact Info) Description 11/14/2024 8:00 AM CHANGE MANAGEMENT FACILITATOR Office Visit [facility] Medical Group Multispecialty Care - [facility] 3 [facility], [address] [place] [phone] Montserrat Oliver NP 3 [facility] [address] [place] [address] 12/06/2024 9:30 AM CHANGE MANAGEMENT FACILITATOR Appointment [facility] Open MRI [address] [place] [address] [place] [address] [address] [place] [address] 03/02/2025 3:20 PM CDT Office Visit [facility] Medical Group Family & Internal Medicine [facility] [address] [place] [address] [place] [address] [facility]. [address] [place], [place] [phone] documented as of this encounter Procedures Procedure [...] documented as of this encounter Care Teams Track Grinder Relationship Specialty Start Date End Date Jaspreet Pearl MD PCP - General INTERNAL MEDICINE 11/30/18 02/18/23 documented as of this encounter
--- OUTSIDE RECORDS SUMMARY | 2024-11-13 17:53 | XMS_ITS | Encounter Summary ---
Author Organization [facility] Address [address] [place] [address]. [place], [place] [address] [place] [address] Care Team Providers Care Commercial Loan Specialist Name Role Phone Kelsey Kc NP Primary Care Provider [phone] Reason for Visit * Reason Onset Date Comments Advice 02/24/2023 Encounter Details Date Type Department Care Team (Late st Contact Info) Description 02/24/2023 Telephone [facility] Medical Group Family & Internal Medicine [facility] [address] [place] [phone] [place] [address] [facility] [address]. [place] [address] Advice Social History Tobacco Use Types Packs/Day [...] Master's degree (e.g., MA, MS, Howard, MEd, ENAMEL SHADER, KEKE) 12/21/2018 Comments No Sex and Gender [...] CDT ----- Regarding: FW: Appointment scheduled from [facility] Contact: Please read patients message below, should she come into the walk in clinic? ----- Message ----- From: Hans Pascual Sent: 02/24/2023 1:55 PM CDT To: Mg Nagel Psr Subject: Appointment scheduled from [facility] Appointment For: Hans Pascual ([id number]) Visit Type: FOLLOW UP ([id number]) 03/03/2023 4:00 PM 20 mins. Allyson Arzola APRN [facility] FM Patient Comments: episodes of feeling faint/dizzy, fainted at certified master safe technician, feeling a lot of anxiety over it. I work [employer] and nurse took my B/P today and it was high for me and she suggested I make an appointment. documented in this encounter Plan of Treatment Upcoming Encounters Date Type Department Care Team (Late st Contact Info) Description 11/14/2024 8:00 AM CHAIR MAKER Office Visit [facility] Medical Group Multispecialty Care - [facility] 3 [facility], [address] [place] [phone] Montserrat Oliver NP 3 [facility] [address] [place] [address] 12/06/2024 9:30 AM CHAIR MAKER Appointment [facility] Open MRI [address] [place] [address] [place] [address] [address] [place] [phone] 03/02/2025 3:20 PM CDT Office Visit [facility] Medical Group Family & Internal Medicine - [place] [address] [place] [address] [place] [address] [facility]. [address] [place] [address] documented as of this encounter Visit Diagnoses Not on filedocumented in this encounter Additional Health Concerns Assessment Noted Time PHQ-9 Depression Total Score: 2 05/27/20 22 11:36 AM CDT documented as of this encounter Care Teams Commercial Loan Specialist Relationship Specialty [place] [address] [facility] [address] [place] [address] PCP - General Nurse Practitioner Family 02/19/2302/13 documented as of this encounter
--- OUTSIDE RECORDS SUMMARY | 2024-11-13 17:53 | XMS_ITS | Encounter Summary ---
Author Organization [facility] Address [address] [place] [address]. [place], [place] [address] [place] [address] Care Team Providers Care Television Specialist Name Role Phone Jaspreet Pearl MD Primary Care Provider U Kelsey Dey NP Primary Care Provider [phone] Dayanara Plaza MD Primary Care Provider [phone] Perez Cervantes MD Unavailable Adriana Ma MD Unavailable [phone] Encounter Details Date Type Department Care Team (Late st Contact Info) Description 12/28/2022 Kiha Softwaret Message Enc [facility] Medical Group Family & Internal Medicine [address] [address] Jaspreet Pearl MD Feeling better [...] Master's degree (e.g., MA, MS, Howard, MEd, FACTORY WORKER, KEKE) 12/21/2018 Comments No Sex and [...] Coronavirus/COVID-19? No / Unsure 12/29/2022 7:12 AM CONSTRUCTION INSPECTOR documented as of this encounter Plan of Treatment Upcoming Encounters Date Type Department Care Team (Late st Contact Info) Description 11/14/2024 8:00 AM CONSTRUCTION INSPECTOR Office Visit [facility] Multispecialty Care - [facility] 3 [facility], [address] [place] [phone] Montserrat Oliver NP 3 [facility] [address] [place] [address] 12/06/2024 9:30 AM CONSTRUCTION INSPECTOR Appointment [facility] Open MRI [address] [place] [address] [place] [address] [facility]. [address] [place] [phone] 03/02/2025 3:20 PM CDT Office Visit [facility] Medical Group Family & Internal Medicine - [address] [address] [place] [address] [facility]. [address] [place] [phone] documented as of this encounter Visit Diagnoses Not on filedocumented in this encounter Additional Health Concerns Infection Onset Date Last Indicated Resolved Time COVID-19 Rule Out 04/03/2024 04/03/2024 04/03/2024 11:38 AM CDT Assessment Noted Time PHQ-9 Depression Total Score: 2 05/27/20 11:36 AM CDT documented as of this encounter Care Teams Television Specialist Relationship Specialty Start Date End Date Jaspreet Pearl MD PCP - General INTERNAL MEDICINE 11/30/18 02/18/23 Kelsey Kc, RAILROAD SHOP INSPECTOR [address] [place] [address] PCP - General Nurse Practitioner Family 02/19/23 02/28/23 [place] [address] [place] [address] PCP - General FAMILY PRACTICE 03/01/23 Perez Cervantes MD [address] [place] [address] RHEUMATOLOGY 09/02/23 Adriana Ma MD 325 [place] [address] Referring Physician ALLERGY 09/02/23 documented as of this encounter
--- OUTSIDE RECORDS SUMMARY | 2024-11-13 17:53 | XMS_ITS | Encounter Summary ---
Author Organization [facility] Address [address] [place] [address]. [place] [address] [place] [address] Care Team Providers Care Technology Director Name Role Phone Jaspreet Pearl MD [...] Master's degree (e.g., MA, MS, Howard, MEd, LIDDER, KEKE) 12/21/2018 Comments No Sex and Gender [...] Contact Info) Description 11/14/2024 8:00 AM CLAIMS ADJUDICATOR Office Visit [facility] Multispecialty Care - [facility] 3 [facility], [address] [place] [address] Montserrat Oliver NP 3 [facility] [address] [place] [address] 12/06/2024 9:30 AM CLAIMS ADJUDICATOR Appointment [facility] Open MRI [address] [place] [address] [place] [address] [facility]. [address] [place] [address] [phone] 03/02/2025 3:20 PM CDT Office Visit [facility] Family & Internal Medicine - [address] [address] [place] [address] [facility] [address] [place] [address] documented as of this encounter Visit Diagnoses Not on filedocumented in this encounter Additional Health Concerns Assessment Noted Time PHQ-9 Depression Total Score: 2 05/27/20 22 11:36 AM CDT documented as of this encounter Care Teams Technology Director Relationship Specialty Start Date End Date aJspreet Pearl MD PCP - General INTERNAL MEDICINE 11/30/18 02/18/23 documented as of this encounter
--- OUTSIDE RECORDS SUMMARY | 2024-11-13 17:53 | XMS_ITS | Encounter Summary ---
Author Organization [facility] Address [address] [place] [address]. [place] [address] [place] [address] Care Team Providers Care Experimental Rocketsled Mechanic Name Role Phone Jaspreet Pearl MD Primary Care Provider U navailable Reason for Visit * Imaging (Routine) - Closed Specialty Diagnoses / Procedures Referred By Contac t Referred To Contact RADIOLOGY Diagnoses Encounter for screening mammogram for malignant neoplasm of breast Procedures MG SCREENING W KRISTEN VICTORIANO DIGI Stalin Moser MD [address] [phone] Phone: tel: fax: Referral ID Status Reason Start Date Expiration Date Visits Re quested Visits Authorized [id number] Closed 01/05/2023 01/05/2024 1 1 Encounter Details Date Type Department Care Team (Latest Contact Info) Description 01/06/2023 2:46 PM RESTRICTIVE PREPARATION OPERATOR - 01/06/2023 11:59 PM [facility] Hospital Encounter [facility] [address] [place] [address] Stalin Moser MD [address] [phone] Stalin Calderón MD [address] [address] Discharge Disposition: Home or Self Care (Routine [...] Master's degree (e.g., MA, MS, Howard, MEd, HAM ROLLING MACHINE OPERATOR, KEKE) 12/21/2018 Comments No Sex [...] Coronavirus/COVID-19? No / Unsure 01/06/2023 2:46 PM RESTRICTIVE PREPARATION OPERATOR documented as of this encounter Medications at [...] mouth daily. 90 tablet 1 05/27/2022 3 PJJ-WSR-Srqhvqv E 192-251-11 MG-MG-UNIT Cap Take 1 capsule [...] st Contact Info) Description 11/14/2024 8:00 AM RESTRICTIVE PREPARATION OPERATOR Office Visit [facility] Multispecialty Care - [facility] [address], [address] [place] [phone] Montserrat Oliver NP 3 [facility] [address] [place] [address] 12/06/2024 9:30 AM RESTRICTIVE PREPARATION OPERATOR Appointment [facility] Open MRI [address] [place] [address] [place] [address] [place] [address] [phone] 03/02/2025 3:20 PM CDT Office Visit [facility] Family & Internal Medicine - [address] [phone] [place] [address] [place] [address] [phone] documented as of this encounter Procedures Procedure Name Priority Date/Time Associated Diagnosis Comments MG SCREENING W KRISTEN VICTORIANO DIGI Routine 01/06/2023 3:08 PM RESTRICTIVE PREPARATION OPERATOR Encounter for screening mammogram for malignant neoplasm of breast documented in this encounter Results * MG SCREENING W KRISTEN VICTORIANO DIGI (01/06/2023 3:08 PM RESTRICTIVE PREPARATION OPERATOR) Anatomical Region Laterality Modality Breast Bilateral Mammography 01/06/2023 4:06 PM RESTRICTIVE PREPARATION OPERATOR Narrative 01/06/2023 4:09 PM RESTRICTIVE PREPARATION OPERATOR Examination: Screening bilateral mammogram with 3-D tomosynthesis [...] documented as of this encounter Care Teams Experimental Rocketsled Mechanic Relationship Specialty Start Date End Date Jaspreet Pearl MD PCP - General INTERNAL MEDICINE 11/30/18 02/18/23 documented as of this encounter
--- OUTSIDE RECORDS SUMMARY | 2024-11-13 17:53 | XMS_ITS | Encounter Summary ---
Author Organization [facility] Address [address] [place] [address]. [place] [address] [place] [address] Care Team Providers Care Paraffin Machine Operator Name Role Phone Jaspreet Pearl MD Primary Care Provider Felipe waydylan Encounter Details Date Type Department Care Team (Latest Contact Info) Description 03/18/2021 Publicfast Message Enc [facility] Medical Group G[facility] [address] [address] Ana Colbert, DOREEN [address] [address] RE: Test Results Social History [...] Master's degree (e.g., MA, MS, Howard, MEd, NURSERY HAND, KEKE) 12/21/2018 Comments No Sex and Gender [...] Bunch - 03/18/2021 2:53 PM CDTFrom: [facility] To: Ana Colbert Sent: 03/18/2021 11:13 AM [...] Contact Info) Description 11/14/2024 8:00 AM WEB PRODUCTION MANAGER Office Visit [facility] Multispecialty Care - [facility] 3 [facility], [address] [place] [phone] Montserrat Oliver NP 3 [facility] [address] [place] [address] 12/06/2024 9:30 AM WEB PRODUCTION MANAGER Appointment [facility] Open MRI [address] [place] [address] [place] [address] [facility]. [address] [place] [address] 03/02/2025 3:20 PM CDT Office Visit [facility] Family & Internal Medicine - [address] [address] [place] [address] [place] [address] documented as of this encounter Visit Diagnoses Not on filedocumented in this encounter Additional Health Concerns Assessment Noted Time PHQ-9 Depression Total Score: 4 05/01/20 19 3:05 PM CDT documented as of this encounter Care Teams Paraffin Machine Operator Relationship Specialty Start Date End Date Jaspreet Pearl MD PCP - General INTERNAL MEDICINE 11/30/18 02/18/23 documented as of this encounter
--- OUTSIDE RECORDS SUMMARY | 2024-11-13 17:53 | XMS_ITS | Encounter Summary ---
Author Organization [facility] Address [address] [place] [address]. [place], [place] [address] [place] [address] Care Team Providers Care Extrusion Press Operator Name Role Phone Jaspreet Madsen MD Primary Care Provider U juan carlos Reason for Visit * Reason Comments Sore Throat Sinus Drainage. Star priscilla Wednesday night.Losing her voice. Headache Started this morning . Encounter Details Date Type Department Care Team (Late Contact Info) Description 07/28/2022 8:20 AM CDT Office Visit [facility] Medical Group Family & Internal Medicine [address] [address] Jaspreet Madsen MD Sore Throat [...] Master's degree (e.g., MA, MS, Howard, MEd, DONOR RECRUITMENT MANAGER, KEKE) 12/21/2018 Comments No Sex and [...] daily., Disp: 90 tablet, Rfl: 1 ??? MQF-GHC-Ybrvilb E 192-251-11 MG-MG-UNIT Cap, Take 1 capsule [...] COLONOSCOPY-NORMAL performed by Niall Matute MD at [facility] ??? LAMINECTOMY,LUMBAR ??? SEPTOPLASTY Social History Socioeconomic History ??? Marital status: Spouse name: Cl ??? Number of children: 4 ??? 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 azithromycin (ZITHROMAX) 250 MG tablet Follow up FU PRN JASPREET MADSEN MD 07/28/2022 2:32 PM documented in this encounter Plan of Treatment Upcoming Encounters Date Type Department Care Team (Late st Contact Info) Description 11/14/2024 8:00 AM PROFESSIONAL SPORTS SCOUT Office Visit [facility] Multispecialty Care - [facility] 3 [facility], [address] [place] [address] Montserrat Oliver NP 3 [facility] [address] [place] [address] 12/06/2024 9:30 AM PROFESSIONAL SPORTS SCOUT Appointment [facility] Open MRI [address] [place] [address] [place] [address] [facility]. [address] [place] [address] 03/02/2025 3:20 PM CDT Office Visit [facility] Family & Internal Medicine - [address] [phone] [place] [address] [facility]. [address] [place] [address] documented as of this encounter Visit Diagnoses Diagnosis Upper respiratory tract infection, unspecified type- Primary documented in this encounter Additional Health Concerns Assessment Noted Time PHQ-9 Depression Total Score: 2 05/27/20 22 11:36 AM CDT documented as of this encounter Care Teams Extrusion Press Operator Relationship Specialty Start Date End Date Jaspreet Madsen MD PCP - General INTERNAL MEDICINE 11/30/18 02/18/23 documented as of this encounter
--- OUTSIDE RECORDS SUMMARY | 2024-11-13 17:53 | XMS_ITS | Encounter Summary ---
Author Organization [facility] Address [address] [place] [address]. [place] [address] [place] [address] Care Team Providers Care Utility Tender Carding Name Role Phone Jaspreet Pearl MD Primary Care Provider Felipe archerelijah Encounter Details Date Type Department Care Team (Late st Contact Info) Description 07/30/2022 Orders Only [facility] Medical Group Family & Internal Medicine - [place] [address] [place] [address] Bailee Rangel APNP [address] [facility] [address] [place] [address] Social History Tobacco Use Types [...] Master's degree (e.g., MA, MS, Howard, MEd, CERNER ANALYST, KEKE) 12/21/2018 Comments No Sex and [...] st Contact Info) Description 11/14/2024 8:00 AM BIG DATA PLATFORM ARCHITECT Office Visit [facility] Multispecialty Care - [address], [address] [place] [phone] Montserrat Oliver NP 3 [facility] [place] [facility] [address] [place] [address] 12/06/2024 9:30 AM BIG DATA PLATFORM ARCHITECT Appointment [facility] Open MRI [address] [place] [address] [place] [address] [facility]. [address] [place] [address] 03/02/2025 3:20 PM CDT Office Visit [facility] Family & Internal Medicine - [address] [phone] [place] [address] [facility] [address] [place] [address] documented as of this encounter Visit Diagnoses Diagnosis Upper respiratory tract infection, unspecified type- Primary Cough documented in this encounter Additional Health Concerns Assessment Noted Time PHQ-9 Depression Total Score: 2 05/27/20 22 11:36 AM CDT documented as of this encounter Care Teams Utility Tender Carding Relationship Specialty Start Date End Date Jaspreet Pearl MD PCP - General INTERNAL MEDICINE 11/30/18 02/18/23 documented as of this encounter
--- OUTSIDE RECORDS SUMMARY | 2024-11-13 17:53 | XMS_ITS | Encounter Summary ---
Author Organization [facility] Address [address] [place] [address]. [place] [address] [place] [address] Care Team Providers Care Personal Computer Network Analyst Name Role Phone Jaspreet Pearl MD [...] Master's degree (e.g., MA, MS, Howard, MEd, NEWSPAPER MANAGING EDITOR, KEKE) 12/21/2018 Comments No Sex and Gender [...] Contact Info) Description 11/14/2024 8:00 AM SENIOR FIREWALL ENGINEER Office Visit [facility] Multispecialty Care - [facility] 3 Health system, [address] [place] [phone] Montserrat Oliver NP 3 [facility] [address] [place] [address] 12/06/2024 9:30 AM SENIOR FIREWALL ENGINEER Appointment [facility] Open MRI [address] [place] [address] [place] [address] [facility]. [address] [place] [phone] 03/02/2025 3:20 PM CDT Office Visit [facility] Family & Internal Medicine - [address] [phone] [place] [address] [facility]. [address] [place] [address] documented as of this encounter Visit Diagnoses Not on filedocumented in this encounter Additional Health Concerns Assessment Noted Time PHQ-9 Depression Total Score: 2 05/27/20 22 11:36 AM CDT documented as of this encounter Care Teams Personal Computer Network Analyst Relationship Specialty Start Date End Date Jaspreet Pearl MD PCP - General INTERNAL MEDICINE 11/30/18 02/18/23 documented as of this encounter
--- OUTSIDE RECORDS SUMMARY | 2024-11-13 17:53 | XMS_ITS | Encounter Summary ---
Author Organization [facility] Address [address] [place] [address]. [place], [place] [address] [place] [address] Care Team Providers Care Journalism Intern Name Role Phone Jaspreet Pearl MD Primary Care Provider U Kelsey Dey NP Primary Care Provider [phone] Dayanara Plaza MD Primary Care Provider [phone] Perez Cervantes MD Unavailable Adriana Ma MD Unavailable [phone] Encounter Details Date Type Department Care Team (Late st Contact Info) Description 08/15/2021 Passworkst Message Enc [facility] Medical Group Family & Internal Medicine [address] [address] Jaspreet Pearl MD RE: Question [...] Master's degree (e.g., MA, MS, Howard, MEd, AMBULATORY ANALYST, KEKE) 12/21/2018 Comments No Sex and [...] st Contact Info) Description 11/14/2024 8:00 AM WARRANTY CLERK Office Visit [facility] Multispecialty Care - [address], [address] [place] [phone] Montserrat Oliver NP [address] [place] [address] [place] [address] 12/06/2024 9:30 AM WARRANTY CLERK Appointment [facility] Open MRI [address] [place] [address] [place] [address] [facility]. [address] [place] [phone] 03/02/2025 3:20 PM CDT Office Visit [facility] Family & Internal Medicine - [address] [address] [place] [address] [address] [place] [phone] documented as of this encounter Visit Diagnoses Not on filedocumented in this encounter Additional Health Concerns Infection Onset Date Last Indicated Resolved Time COVID-19 Rule Out 04/03/2024 04/03/2024 04/03/2024 11:38 AM CDT Assessment Noted Time PHQ-9 Depression Total Score: 0 05/02/20 21 2:11 PM CDT documented as of this encounter Care Teams Journalism Intern Relationship Specialty Start Date End Date Jaspreet Pearl MD PCP - General INTERNAL MEDICINE 11/30/18 02/18/23 Kelsey Kc, DOREEN [address] [address] [place] [address] PCP - General Nurse Practitioner Family 02/19/23 02/28/23 [place] [address] [address] [place] [address] PCP - General FAMILY PRACTICE 03/01/23 Perez Cervantes MD [address] [place] [phone] RHEUMATOLOGY 09/02/23 Adriana Ma MD 325 [place], [place] [address] Referring Physician ALLERGY 09/02/23 documented as of this encounter
--- OUTSIDE RECORDS SUMMARY | 2024-11-13 17:53 | XMS_ITS | Encounter Summary ---
Author Organization [facility] Address [address] [place] [address]. [place] [address] [place] [address] Care Team Providers Care Django Developer Name Role Phone Jaspreet Pearl MD [...] Master's degree (e.g., MA, MS, Howard, MEd, DIGITAL CONTENT PRODUCER, KEKE) 12/21/2018 Comments No Sex and [...] COVID-19? No / Unsure 11/11/2021 8:18 AM AGENCY SALES MANAGEMENT ASSISTANT documented as of this encounter Plan of Treatment Upcoming Encounters Date Type Department Care Team (Late st Contact Info) Description 11/14/2024 8:00 AM AGENCY SALES MANAGEMENT ASSISTANT Office Visit [facility] Multispecialty Care - [facility] 3 [facility], [address] [place] [phone] Montserrat Oliver NP 3 [facility] [address] [place] [address] 12/06/2024 9:30 AM AGENCY SALES MANAGEMENT ASSISTANT Appointment [facility] Open MRI [address] [place] [address] [place] [address] [facility]. [address] [place] [address] 03/02/2025 3:20 PM CDT Office Visit [facility] Family & Internal Medicine - [address] [address] [place] [address] [facility]. [address] [place] [address] documented as of this encounter Visit Diagnoses Not on filedocumented in this encounter Additional Health Concerns Assessment Noted Time PHQ-9 Depression Total Score: 0 05/02/20 21 2:11 PM CDT documented as of this encounter Care Teams Django Developer Relationship Specialty Start Date End Date Jaspreet Pearl MD PCP - General INTERNAL MEDICINE 11/30/18 02/18/23 documented as of this encounter
--- OUTSIDE RECORDS SUMMARY | 2024-11-13 17:53 | XMS_ITS | Encounter Summary ---
Author Organization [facility] Address Formerly [facility] [place] [address] [place] [address] Care Team Providers Care Lining Ironer Name Role Phone Jaspreet Pearl MD Primary Care Provider U Kelsey Dey NP Primary Care Provider [phone] Dayanara Plaza MD Primary Care Provider [phone] Perez Cervantes MD Unavailable Adriana Ma MD Unavailable [phone] Encounter Details Date Type Department Care Team (Late st Contact Info) Description 03/12/2021 Prep for Procedure [facility] [place], [place] [id number] Niall Matute MD [address] [id number] Social History Tobacco Use Types Packs/Day Years [...] Master's degree (e.g., MA, MS, Howard, MEd, RECORD PRESS TENDER, KEKE) 12/21/2018 Comments No Sex and [...] st Contact Info) Description 11/14/2024 8:00 AM RESTROOMS OR LOUNGES MAID Office Visit [facility] Multispecialty Care - [facility] 3 [facility], [address] [place] [phone] Montserrat Oliver NP 3 [facility] [address] [place] [address] 12/06/2024 9:30 AM RESTROOMS OR LOUNGES MAID Appointment [facility] Open MRI [address] [place] [address] [place] [address] [facility]. [address] [place] [phone] 03/02/2025 3:20 PM CDT Office Visit [facility] Medical [facility] Family & Internal Medicine - [address] [address] [place] [address] [facility]. [address] [place] [phone] documented as of this encounter Results * PRE-SURGICAL/PRE-PROCEDURE CORONAVIRUS (COVID 19) (03/14/2021 11:20 AM CDT) CORONAVIRUS SARS COV 2 PCR (RESP) NOT DETECTED NOT DETECTED 03/15/2021 1:26 PM CDT [facility] Comment: A Not Detected (negative) test result [...] providers and patients using the following websites: https://www.[employer].com/home/Covid-19/HCP/rc- xujs-oae4-hogi-sheet.html https://www.[employer].Contacts+/home/Covid-19/Patients/ ry-bvij-uhi4-fact-sheet.html This test has been authorized by the FDA under an Emergency Use Authorization (EUA) for use by authorized laboratories. Due to the current public health emergency, [facility] is receiving a high volume of samples [...] about COVID-19 can be found at the [facility] website: www.[facility].com/Covid19. Test performed at [facility] [address] [place], [place] ??[address] Director: ASPEN HOLLINGSWORTH DO,MPH FIRST TEST NO 03/14/2021 12:08 PM CDT [facility] EMPLOYED IN HEALTHCARE NO 03/14/2021 12:08 PM CDT [facility] SYMPTOMATIC DEFINED BY CDC NO 03/14/2021 12:08 PM CDT [facility] DATE OF SYMPTOM ONSET NO 03/14/2021 12:48 PM CDT [facility] HOSPITALIZATION STATUS NO 03/14/2021 12:08 PM CDT [facility] PATIENT IN ICU NO 03/14/2021 12:08 PM CDT [facility] RESIDENT OF [facility] NO 03/14/2021 12:08 PM CDT [facility] NO 03/14/2021 12:48 PM CDT [facility] PATIENT'S RACE WHITE OR 03/14/2021 12:08 PM CDT [facility] ETHNICITY NONHISPANIC 03/14/2021 12:08 PM CDT [facility] SOURCE (QST) NASOPHARYNGEAL SWAB 03/14/2021 12:08 PM CDT [facility] NASOPHARYNGEAL SWAB / Unknown 03/14/2021 11:20 AM CDT Niall Matute MD MICROBIOLOGY - GENERAL ORDERABLE S Final Result [facility] 3 [place] [address], [place] [phone] [facility] [address] [place] [address], documented in this encounter Visit Diagnoses Diagnosis [...] documented as of this encounter Care Teams Lining Ironer Relationship Specialty Start Date End Date Jaspreet Pearl MD PCP - General INTERNAL MEDICINE 11/30/18 02/18/23 [place] [address] [address] [place] [address] PCP - General Nurse Practitioner Family 02/19/23 02/28/23 [place] [address] [address] [place] [address] PCP - General FAMILY PRACTICE 03/01/23 Perez Cervantes MD [address] [place] [address] [place] [phone] RHEUMATOLOGY 09/02/23 Adriana Ma MD [address] [place] [address] Referring Physician ALLERGY 09/02/23 documented as of this encounter
--- OUTSIDE RECORDS SUMMARY | 2024-11-13 17:53 | XMS_ITS | Encounter Summary ---
Author Organization [facility] Address [address] [place] [address]. [place] [address] [place] [address] Care Team Providers Care Junior Estimator Name Role Phone Jaspreet eParl MD Primary Care Provider Felipe waydylan Encounter [...] have received? Master's degree (e.g., MA, MS, Hwoard, MEd, DIGITAL ACCOUNT EXECUTIVE, KEKE) 12/21/2018 Comments No Sex and Gender [...] st Contact Info) Description 11/14/2024 8:00 AM CUFF TURNER MACHINE OPERATOR Office Visit [facility] Multispecialty Care - [facility] 3 [facility], [address] [place] [address] Montserrat Oliver NP 3 Health system [address] [place] [address] 12/06/2024 9:30 AM CUFF TURNER MACHINE OPERATOR Appointment [facility] Open MRI [address] [place] [address] [place] [address] [facility]. [address] [place] [address] 03/02/2025 3:20 PM CDT Office Visit [facility] Family & Internal Medicine - [address] [address] [place] [address] [facility]. [address] [place] [address] documented as of this encounter Visit Diagnoses Not on filedocumented in this encounter Additional Health Concerns Assessment Noted Time PHQ-9 Depression Total Score: 0 05/02/20 21 2:11 PM CDT documented as of this encounter Care Teams Junior Estimator Relationship Specialty Start Date End Date Jaspreet Pearl MD PCP - General INTERNAL MEDICINE 11/30/18 02/18/23 documented as of this encounter
--- OUTSIDE RECORDS SUMMARY | 2024-11-13 17:53 | XMS_ITS | Encounter Summary ---
Author Organization [facility] Address [address] [place] [address]. [place] [address] [place] [address] Care Team Providers Care Stockroom Associate Name Role Phone Jaspreet Pearl MD Primary Care Provider Felipe rangel Encounter Details Date Type Department Care Team (Latest Contact Info) Description 12/29/2022 12:33 PM ART HISTORIAN - 12/29/2022 11:[address] [facility] Hospital Encounter [facility] [address] [place] [address] Allyson Arzola, RECEIVING CHECKER [address] [employer] [place], [place] [phone] Discharge Disposition: Home or Self Care (Routine [...] Master's degree (e.g., MA, MS, Howard, MEd, DRAWER MAKER, KEKE) 12/21/2018 Comments No Sex and [...] Coronavirus/COVID-19? No / Unsure 12/29/2022 7:12 AM ART HISTORIAN documented as of this encounter Medications at [...] mouth daily. 90 tablet 1 05/27/2022 3 IXW-ZFY-Ywpmscy E 192-251-11 MG-MG-UNIT Cap Take 1 capsule [...] to clinic with new or worsening symptoms. HISTORIAN documented in this encounter Plan of Treatment Upcoming Encounters Date Type Department Care Team (Late st Contact Info) Description 11/14/2024 8:00 AM ART HISTORIAN Office Visit [facility] Multispecialty Care - [facility] 3 [facility], [address] [place] [phone] Montserrat Oliver NP 3 [facility] [address] [place] [address] 12/06/2024 9:30 AM ART HISTORIAN Appointment [facility] Open MRI [address] [place] [address] [place] [address] [place] [address] 03/02/2025 3:20 PM CDT Office Visit [facility] Medical Group Family & Internal Medicine - [place] [address] [place] [address] [place] [address] [facility]. [address] [place] [address] documented as of this encounter Procedures Procedure Name Priority Date/Time Associated Diagnosis Comments CULTURE STREP A Routine 12/29/2022 7:59 AM ART HISTORIAN Sore throat documented in this encounter Results * CULTURE STREP A (12/29/2022 7:59 AM ART HISTORIAN) SPEC DESCRIPTION THROAT 12/29/2022 12:33 PM ART HISTORIAN [facility] SPECIAL REQUESTS NO SPECIAL REQUEST 12/29/2022 12:33 PM ART HISTORIAN [facility] CULTURE RESULT NO STREPTOCOCCUS PYOGENES (GROUP A) ISOLATED 12/31/2022 8:03 AM ART HISTORIAN [facility] THROAT SWAB / Unknown 12/29/2022 7:59 AM ART HISTORIAN 12/29/2022 12:46 PM ART HISTORIAN us Allyson Arzola APRN MICROBIOLOGY - GENERAL ORD ERABLES Final Result [facility] 3 [place] [address], [place] [phone] [facility] [address] [place] [address], [place] [phone] documented in this encounter Visit Diagnoses Diagnosis Sore throat Acute pharyngitis documented in this encounter Additional Health Concerns Assessment Noted Time PHQ-9 Depression Total Score: 2 05/27/20 22 11:36 AM CDT documented as of this encounter Care Teams Stockroom Associate Relationship Specialty Start Date End Date Jaspreet Pearl MD PCP - General INTERNAL MEDICINE 11/30/18 02/18/23 documented as of this encounter
--- OUTSIDE RECORDS SUMMARY | 2024-11-13 17:53 | XMS_ITS | Encounter Summary ---
Author Organization [facility] Address [address] [place] [address]. [place], [place] [address] [place] [address] Care Team Providers Care Emg Technician Name Role Phone Jaspreet Pearl MD Primary Care Provider U Kelsey Dey NP Primary Care Provider [phone] Dayanara Plaza MD Primary Care Provider [phone] Perez Cervantes MD Unavailable Adriana Ma MD Unavailable [phone] Encounter Details Date Type Department Care Team (Late st Contact Info) Description 03/08/2022 Good World Gamest Message Enc [facility] Medical Group Family & Internal Medicine [address] [address] Jaspreet Pearl MD Refill question [...] Master's degree (e.g., MA, MS, Howard, MEd, ELECTRICAL TIMING DEVICE CALIBRATOR, KEKE) 12/21/2018 Comments No Sex and Gender [...] st Contact Info) Description 11/14/2024 8:00 AM STRIP STAMP STRAIGHTENER Office Visit [facility] Multispecialty Care - [address], [address] [place] [phone] Montserrat Oliver NP [address] [place] [address] [place] [address] 12/06/2024 9:30 AM STRIP STAMP STRAIGHTENER Appointment [facility] Open MRI [address] [place] [address] [place] [address] [facility] D[facility]ene. [address] [place] [phone] 03/02/2025 3:20 PM CDT Office Visit [facility] Family & Internal Medicine - [address] [address] [place] [address] [address] [place] [phone] documented as of this encounter Visit Diagnoses Not on filedocumented in this encounter Additional Health Concerns Infection Onset Date Last Indicated Resolved Time COVID-19 Rule Out 04/03/2024 04/03/2024 04/03/2024 11:38 AM CDT Assessment Noted Time PHQ-9 Depression Total Score: 0 05/02/20 21 2:11 PM CDT documented as of this encounter Care Teams Emg Technician Relationship Specialty Start Date End Date Jaspreet Pearl MD PCP - General INTERNAL MEDICINE 11/30/18 02/18/23 Kelsey Kc, [place] [address] [address] [address] PCP - General Nurse Practitioner Family 02/19/23 02/28/23 [place] [address] [address] [place] [address] PCP - General FAMILY PRACTICE 03/01/23 Perez Cervantes MD [address] [place] [phone] RHEUMATOLOGY 09/02/23 Adriana Ma MD [address] [place], [place] [address] Referring Physician ALLERGY 09/02/23 documented as of this encounter
--- OUTSIDE RECORDS SUMMARY | 2024-11-13 17:53 | XMS_ITS | Encounter Summary ---
Author Organization [facility] Address [address] [place] [address]. [place] [address] [place] [address] Care Team Providers Care Web Site Admin Name Role Phone Jaspreet Pearl MD Primary [...] Master's degree (e.g., MA, MS, Howard, MEd, MOTEL FOOD SERVICE SUPERVISOR, KEKE) 12/21/2018 Comments No Sex and [...] Coronavirus/COVID-19? No / Unsure 12/29/2022 7:12 AM CUPOLA LINER documented as of this encounter Plan of Treatment Upcoming Encounters Date Type Department Care Team (Late st Contact Info) Description 11/14/2024 8:00 AM CUPOLA LINER Office Visit [facility] Multispecialty Care - [facility] 3 [facility], [address] [place] [address] Montserrat Oliver NP 3 [facility] [address] [place] [address] 12/06/2024 9:30 AM CUPOLA LINER Appointment [facility] Open MRI [address] [place] [address] [place] [address] [facility] [place] [phone] 03/02/2025 3:20 PM CDT Office Visit [facility] Family & Internal Medicine - [address] [address] [place] [address] [facility]. [address] [place] [address] documented as of this encounter Visit Diagnoses Not on filedocumented in this encounter Additional Health Concerns Assessment Noted Time PHQ-9 Depression Total Score: 2 05/27/20 22 11:36 AM CDT documented as of this encounter Care Teams Web Site Admin Relationship Specialty Start Date End Date Jaspreet Pearl MD PCP - General INTERNAL MEDICINE 11/30/18 02/18/23 documented as of this encounter
--- OUTSIDE RECORDS SUMMARY | 2024-11-13 17:53 | XMS_ITS | Encounter Summary ---
Author Organization [facility] Address [address] [place] [address]. [place] [address] [place] [address] Care Team Providers Care Magnetic Tester Name Role Phone Jaspreet Pearl MD Primary [...] Master's degree (e.g., MA, MS, Howard, MEd, TIME CYCLE OPERATOR, KEKE) 12/21/2018 Comments No Sex and [...] (Late Contact Info) Description 11/14/2024 8:00 AM CLOUD AUTOMATION TESTER Office Visit [facility] Multispecialty Care - [facility] 3 [facility], [address] [place] [address] Montserrat Oliver NP 3 [facility] [address] [place] [address] 12/06/2024 9:30 AM CLOUD AUTOMATION TESTER Appointment [facility] Open MRI [address] [facility] [place] [address] [place] [address] [facility] [address] [place] [address] 03/02/2025 3:20 PM CDT Office Visit [facility] Family & Internal Medicine - [address] [phone] [place] [address] [facility]. [address] [place] [address] documented as of this encounter Visit Diagnoses Not on filedocumented in this encounter Additional Health Concerns Assessment Noted Time PHQ-9 Depression Total Score: 4 05/01/20 19 3:05 PM CDT documented as of this encounter Care Teams Magnetic Tester Relationship Specialty Start Date End Date Jaspreet Pearl MD PCP - General INTERNAL MEDICINE 11/30/18 02/18/23 documented as of this encounter
--- OUTSIDE RECORDS SUMMARY | 2024-11-13 17:53 | XMS_ITS | Encounter Summary ---
Author Organization [facility] Address [address] [place] [address]. [place] [address] [place] [address] Care Team Providers Care Order Desk Caller Name Role Phone Jaspreet Pearl MD Primary [...] Master's degree (e.g., MA, MS, Howard, MEd, THREE KNIFE TRIMMER, KEKE) 12/21/2018 Comments No Sex and Gender [...] st Contact Info) Description 11/14/2024 8:00 AM THERMOSCREW OPERATOR Office Visit [facility] Multispecialty Care - [facility] 3 [facility], [address] [place] [phone] Montserrat Oliver NP 3 [facility] [address] [place] [address] 12/06/2024 9:30 AM THERMOSCREW OPERATOR Appointment [facility] Open MRI [address] [place] [address] [place] [address] [facility]. [address] [place] [phone] 03/02/2025 3:20 PM CDT Office Visit [facility] Family & Internal Medicine - [place] [phone] [place] [phone] [place] [address] [facility]. [address] [place] [address] documented as of this encounter Visit Diagnoses Not on filedocumented in this encounter Additional Health Concerns Assessment Noted Time PHQ-9 Depression Total Score: 0 05/02/20 21 2:11 PM CDT documented as of this encounter Care Teams Order Desk Caller Relationship Specialty Start Date End Date Jaspreet Pearl MD PCP - General INTERNAL MEDICINE 11/30/18 02/18/23 documented as of this encounter
--- OUTSIDE RECORDS SUMMARY | 2024-11-13 17:53 | XMS_ITS | Encounter Summary ---
Author Organization [facility] Address [address] [place] [address]. [place], [place] [address] [place] [address] Care Team Providers Care Supervisor Word Processing Name Role Phone Jaspreet Pearl MD Primary Care Provider U juan carlos Reason for Visit * Reason Comments New Patient Left hand * Consultation/Treatment (Routine) - Closed Specialty Diagnoses / Procedures Referred By Contac t Referred To Contact ORTHOPAEDIC SURGERY / ORTHOPAEDICS Diagnoses Trigger ring finger of right hand Jaspreet Pearl MD Ler[place], [place] [address] [place] [address] Phone: tel: fax: Referral ID Status Reason Start Date Expiration Date V isits Requested Visits Authorized [id number] Closed Specialty Services 05/02/2021 06/01/2022 100 100 Encounter Details Date Type Department Care Team (Latest Contact Info) Description 06/23/2021 8:20 AM CDT Office Visit [facility] Multispecialty Care - [facility] 3 [facility] [address] [place] [phone] Clark [place] MD [address] [place] [address] New Patient (Left hand ) [...] Master's degree (e.g., MA, MS, Howard, MEd, MASS SPEC, KEKE) 12/21/2018 Comments No Sex and Gender [...] by Niall Matute MD at [facility] ??? LAMINECTOMY,LUMBAR ??? SEPTOPLASTY Family History Problem [...] daily., Disp: 90 tablet, Rfl: 1 ??? UEA-QBR-Sbwohwh E (OMEGA-3 COMPLEX) 192-251-11 MG-MG-UNIT Cap, Take [...] tunnel, Adam test negative Hand : Inspection/Palpation: Classic looking [...] st Contact Info) Description 11/14/2024 8:00 AM JEEP MECHANIC Office Visit [facility] Multispecialty Care - [facility] 3 [facility], [address] [place] [phone] Montserrat Oliver NP 3 [facility] [address] [place] [address] 12/06/2024 9:30 AM JEEP MECHANIC Appointment [facility] Open MRI [address] [place] [address] [place] [address] [facility] [address] [place] [phone] 03/02/2025 3:20 PM CDT Office Visit [facility] Family & Internal Medicine - [address] [phone] [place] [address] [address] [place] [address] documented as of this encounter Visit Diagnoses Diagnosis Dupuytren's contracture- Primary Contracture of palmar fascia documented in this encounter Additional Health Concerns Assessment Noted Time PHQ-9 Depression Total Score: 0 05/02/20 21 2:11 PM CDT documented as of this encounter Care Teams Supervisor Word Processing Relationship Specialty Start Date End Date Jaspreet Pearl MD PCP - General INTERNAL MEDICINE 11/30/18 02/18/23 documented as of this encounter
--- OUTSIDE RECORDS SUMMARY | 2024-11-13 17:53 | XMS_ITS | Encounter Summary ---
Author Organization [facility] Address [address] [place] [address]. [place], [place] [phone] [place] [address] Care Team Providers Care Tube Drawing Supervisor Name Role Phone Jaspreet Pearl MD Primary Care Provider juan carlos Encounter Details Date Type Department Care Team (Late st Contact Info) Description 09/14/2022 Voice Of TVt Message Enc [facility] Medical Group Family & Internal Medicine [address] [address] Jaspreet Pearl MD Tested positive [...] Master's degree (e.g., MA, MS, Howard, MEd, SMALL ENGINE SPECIALIST, KEKE) 12/21/2018 Comments No Sex and [...] st Contact Info) Description 11/14/2024 8:00 AM BREAD JOCKEY Office Visit [facility] Multispecialty Care - [facility] 3 [facility], [address] [place] [phone] Montserrat Oliver NP 3 [facility] [address] [place] [address] 12/06/2024 9:30 AM BREAD JOCKEY Appointment [facility] Open MRI [address] [place] [address] [place] [address] [facility]. [address] [place] [address] 03/02/2025 3:20 PM CDT [facility] Family [facility] Internal Medicine - [address] [address] [place] [address] [facility]. [address] [place] [address] documented as of this encounter Visit Diagnoses Not on filedocumented in this encounter Additional Health Concerns Assessment Noted Time PHQ-9 Depression Total Score: 2 05/27/20 22 11:36 AM CDT documented as of this encounter Care Teams Tube Drawing Supervisor Relationship Specialty Start Date End Date Jaspreet Pearl MD PCP - General INTERNAL MEDICINE 11/30/18 02/18/23 documented as of this encounter
--- OUTSIDE RECORDS SUMMARY | 2024-11-13 17:53 | XMS_ITS | Encounter Summary ---
Author Organization [facility] Address [address] [place] [address]. [place], [place] [address] [place] [address] Care Team Providers Care Underwear Finisher Name Role Phone Jaspreet Madsen MD Primary Care Provider U juan carlos Reason for Visit * Reason Comments Headache Pt states she has lee d a headache and stiffness since Wednesday and and jaw pain today. Encounter Details Date Type Department Care Team (Late st Contact Info) Description 07/06/2022 3:40 PM CDT Office Visit [facility] Medical Group Family & Internal Medicine [address] [address] Jaspreet Madsen MD Headache (Pt [...] Master's degree (e.g., MA, MS, Howard, MEd, MOTOR VEHICLE DISPATCHER, KEKE) 12/21/2018 Comments No Sex and Gender [...] daily., Disp: 90 tablet, Rfl: 1 ??? MOO-IFD-Zjfthpd E 192-251-11 MG-MG-UNIT Cap, Take 1 capsule [...] COLONOSCOPY-NORMAL performed by Niall Matute MD at [facility] ??? LAMINECTOMY,LUMBAR ??? SEPTOPLASTY Social History Socioeconomic History ??? Marital status: Spouse name: Cl ??? Number of children: 4 ??? Highest education level: Master's degree (e.g., MA, MS, Howard, MEd, MOTOR VEHICLE DISPATCHER, KEKE) Occupational History ??? 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 DISCONTD: ACNNUXPO-CYPWSPLUM-LTPMNIQGGIYOVA otic solution ??? tiZANidine (ZANAFLEX) 4 MG tablet Follow up FU PRN JASPREET MADSEN MD 07/06/2022 5:22 PM documented in this encounter Plan of Treatment Upcoming Encounters Date Type Department Care Team (Late st Contact Info) Description 11/14/2024 8:00 AM RIB BUILDER Office Visit [facility]pecialty Care - [facility] 3 [facility], [address] [place] [address] Montserrat Oliver NP 3 [facility] [address] [place] [address] 12/06/2024 9:30 AM RIB BUILDER Appointment [facility] Open MRI [address] [place] [address] [place] [address] [facility]. [address] [place] [id number] 03/02/2025 3:20 PM CDT Office Visit [facility] Family & Internal Medicine - [address] [phone] [place] [address] [facility] [address] [place] [address] documented as of this encounter Visit Diagnoses Diagnosis Neck pain- Primary Cervicalgia DURAN (generalized anxiety disorder) Generalized anxiety disorder documented in this encounter Additional Health Concerns Assessment Noted Time PHQ-9 Depression Total Score: 2 05/27/20 22 11:36 AM CDT documented as of this encounter Care Teams Underwear Finisher Relationship Specialty Start Date End Date Jaspreet Madsen MD PCP - General INTERNAL MEDICINE 11/30/18 02/18/23 documented as of this encounter
--- OUTSIDE RECORDS SUMMARY | 2024-11-13 17:53 | XMS_ITS | Encounter Summary ---
Author Organization [facility] Address [address] [place] [address]. [place] [address] [place] [address] Care Team Providers Care Administrative Underwriter Name Role Phone Jaspreet Pearl MD [...] degree (e.g., MA, MS, Howard, MEd, TEST ENGINEERING INTERN, KEKE) 12/21/2018 Comments No Sex and Gender [...] COVID-19? No / Unsure 11/04/2021 11:29 AM SENIOR APPLICATION PROGRAMMER documented as of this encounter Plan of Treatment Upcoming Encounters Date Type Department Care Team (Late st Contact Info) Description 11/14/2024 8:00 AM SENIOR APPLICATION PROGRAMMER Office Visit [facility]pec[facility]ty Care - [facility] 3 [facility], [address] [place] [address] Montserrat Oliver NP 3 [facility] [address] [place] [address] 12/06/2024 9:30 AM SENIOR APPLICATION PROGRAMMER Appointment [facility] Open MRI [address] [place] [address] [place] [address] [facility]. [address] [place] [address] 03/02/2025 3:20 PM CDT Office Visit [facility] Family & Internal Medicine - [address] [address] [place] [address] [facility]. [address] [place] [address] documented as of this encounter Visit Diagnoses Not on filedocumented in this encounter Additional Health Concerns Assessment Noted Time PHQ-9 Depression Total Score: 0 05/02/20 21 2:11 PM CDT documented as of this encounter Care Teams Administrative Underwriter Relationship Specialty Start Date End Date Jaspreet Pearl MD PCP - General INTERNAL MEDICINE 11/30/18 02/18/23 documented as of this encounter
--- OUTSIDE RECORDS SUMMARY | 2024-11-13 17:53 | XMS_ITS | Encounter Summary ---
Author Organization [facility] Address [address] [place] [address]. [place], [place] [address] [place] [address] Care Team Providers Care Transit Manager Name Role Phone Jaspreet Pearl MD Primary Care Provider U navailable Reason for Visit * Imaging (Routine) - Closed Specialty Diagnoses / Procedures Referred By Contac t Referred To Contact RADIOLOGY Diagnoses Visit for screening mammogram Procedures MG SCREENING W KRISTEN VICTORIANO DIGI Stalin Calderón MD [address] [address] Phone: tel: fax: Referral ID Status Reason Start Date Expiration Date Visits Re quested Visits Authorized [id number] Closed 10/07/2021 11/06/2022 1 1 Encounter Details Date Type Department Care Team (Latest Contact Info) Description 11/18/2021 4:17 PM COST ESTIMATING CLERK - 11/18/2021 11:59 PM [facility] Hospital Encounter [facility] Mammography [address] [place] [address] Stalin Calderón MD [address] [address] Discharge Disposition: Home or Self [...] degree (e.g., MA, MS, Howard, MEd, PAPER GOODS MACHINE OPERATOR, KEKE) 12/21/2018 Comments No Sex [...] Coronavirus / COVID-19? Yes 11/18/2021 4:16 PM COST ESTIMATING CLERK documented as of this encounter Medications at [...] MOUTH DAILY. 90 tablet 1 11/21/2021 2 IZJ-COQ-Txiygzf E 192-251-11 MG-MG-UNIT Cap Take 1 capsule [...] st Contact Info) Description 11/14/2024 8:00 AM COST ESTIMATING CLERK Office Visit [facility] Medical [facility] Multispecialty Care - [facility] 3 [facility], Suite [facility] [place] [address] Montserrat Oliver NP 3 [facility] [address] [place] [address] 12/06/2024 9:30 AM COST ESTIMATING CLERK Appointment [facility] Open MRI [address] [place] [address] [place] [address] [place] [address] 03/02/2025 3:20 PM CDT Office Visit [facility] Medical Group Family & Internal Medicine - [address] [phone] [place] [address] [place] [address] documented as of this encounter Procedures Procedure Name Priority Date/Time Associated Diagnosis Comments MG SCREENING W KRISTEN VICTORIANO DIGI Routine 11/18/2021 4:34 PM COST ESTIMATING CLERK Visit for screening mammogram documented in this encounter Results * MG SCREENING W KRISTEN VICTORIANO DIGI (11/18/2021 4:34 PM COST ESTIMATING CLERK) Anatomical Region Laterality Modality Breast Bilateral Mammography 11/18/2021 6:23 PM COST ESTIMATING CLERK Impressions 11/18/2021 6:23 PM COST ESTIMATING CLERK IMPRESSION: No suspicious change since the previous exams. Recommendation: 1: Routine Screening ??Bilateral ??in 1 Year Assessment: ACR BI-RADS 2 - BENIGN FINDING(S) Ordered By: STALIN CALDERÓN Interpreted By: Lee Saldivar MD, 11/18/2021 6:23 PM Narrative 11/18/2021 6:23 PM COST ESTIMATING CLERK Examination: Digital screening mammogram with CAD. Clinical [...] documented as of this encounter Care Teams Transit Manager Relationship Specialty Start Date End Date Jaspreet Pearl MD PCP - General INTERNAL MEDICINE 11/30/18 02/18/23 documented as of this encounter
--- OUTSIDE RECORDS SUMMARY | 2024-11-13 17:53 | XMS_ITS | Encounter Summary ---
Author Organization [facility] Address [address] [place] [address]. [place] [address] [place] [address] Care Team Providers Care Manual Plate Filler Name Role Phone Jaspreet Pearl MD Primary Care Provider U navailable Reason for Visit * Auth/Cert Specialty Diagnoses / Procedures Referred By Contac t Referred To Contact Diagnoses Pharyngoesophageal dysphagia Encounter for screening colonoscopy Screening and pharynesophageal dysphagia Procedures COLONOSCOPY EGD Referral ID Status Reason Start Date Expiration Date Visits Re quested Visits Authorized [id number] 1 1 Encounter Details Date Type Department Care Team (Latest Contact Info) Description 03/17/2021 8:21 AM CDT - 03/17/2021 12:29 PM [facility] Hospital Encounter [facility] [place] [address] Niall Matute MD [address] [address] Discharge Disposition: Home or Self Care (Routine [...] Master's degree (e.g., MA, MS, Howard, MEd, INVENTORY AND PRICING ASSOCIATE, KEKE) 12/21/2018 Comments No Sex and [...] through Care Everywhere. * Colonoscopy Discharge Instructions (Malagasy) * General Anesthesia Discharge Instructions (Malagasy) * Upper GI Endoscopy Discharge Instructions (Malagasy) documented in this encounter Medications at Time [...] mouth daily. 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 Social [...] Matute MD - 03/17/2021 11:33 AM CDT [facility] OpNote COLONOSCOPY-NORMAL, EGD, NEGATIVE [facility] 03/17/2021 0920 Procedure(s) (LRB): COLONOSCOPY-NORMAL (N/A) EGD, NEGATIVE (N/A) Surgeon(s): Niall Matute MD Staff: GI Nurse: Martha Villeda RN fagoting machine operator: Heather Liz CNA Anesthesia: General Anesthesiologist: Dawna Cifuentes MD SACK SEWER MACHINE: Elvira Farr CRNA; Con Hopper CRNA Pre-Op [...] st Contact Info) Description 11/14/2024 8:00 AM BEHAVIORAL THERAPY COORDINATOR Office Visit [facility] Multispecialty Care - [facility] 3 [facility], [address] [place] [address] Montserrat Oliver NP 3 [facility] [address] [place] [address] 12/06/2024 9:30 AM BEHAVIORAL THERAPY COORDINATOR Appointment [facility] MRI [address] [place] [address] [place] [address] [facility]. [address] [place] [address] 03/02/2025 3:20 PM CDT Office Visit [facility] Family & Internal Medicine - [address] [phone] [place] [address] [facility]. [address] [place] [address] documented as of this encounter Procedures Procedure [...] documented as of this encounter Care Teams Manual Plate Filler Relationship Specialty Start Date End Date Jaspreet Pearl MD PCP - General INTERNAL MEDICINE 11/30/18 02/18/23 documented as of this encounter
--- OUTSIDE RECORDS SUMMARY | 2024-11-13 17:53 | XMS_ITS | Encounter Summary ---
Author Organization [facility] Address [address] [place] [address]. [place] [address] [place] [address] Care Team Providers Care Calciner Operator Name Role Phone Jaspreet Pearl MD [...] Master's degree (e.g., MA, MS, Howard, MEd, DESKTOP SPECIALIST, KEKE) 12/21/2018 Comments No Sex and [...] (Late Contact Info) Description 11/14/2024 8:00 AM DEATH SURVEYS CODER Office Visit [facility] Mult[facility]pecialty Care - [facility] 3 [facility], [address] [place] [address] Montserrat Oliver NP 3 [facility] [address] [place] [address] 12/06/2024 9:30 AM DEATH SURVEYS CODER Appointment [facility] Open MRI [address] [place] [address] [place] [address] [facility] [place] [address] 03/02/2025 3:20 PM CDT Office Visit [facility] Family & Internal Medicine - [address] [phone] [place] [address] [facility]. [address] [place] [address] documented as of this encounter Visit Diagnoses Not on filedocumented in this encounter Additional Health Concerns Assessment Noted Time PHQ-9 Depression Total Score: 4 05/01/20 19 3:05 PM CDT documented as of this encounter Care Teams Calciner Operator Relationship Specialty Start Date End Date Jaspreet Pearl MD PCP - General INTERNAL MEDICINE 11/30/18 02/18/23 documented as of this encounter
--- OUTSIDE RECORDS SUMMARY | 2024-11-13 17:53 | XMS_ITS | Encounter Summary ---
Author Organization [facility] Address [address] [place] [address]. [place] [address] [place] [address] Care Team Providers Care Glassware Maker Demonstrator Name Role Phone Jaspreet Pearl MD Primary [...] Master's degree (e.g., MA, MS, Howard, MEd, INFORMATICS NURSE, KEKE) 12/21/2018 Comments No Sex and [...] Coronavirus/COVID-19? No / Unsure 01/06/2023 2:46 PM CITY ATTORNEY documented as of this encounter Plan of Treatment Upcoming Encounters Date Type Department Care Team (Late st Contact Info) Description 11/14/2024 8:00 AM CITY ATTORNEY Office Visit [facility] Multispecialty Care - [facility] 3 [facility], [address] [place] [address] Montserrat Oliver NP 3 [facility] [address] [place] [address] 12/06/2024 9:30 AM CITY ATTORNEY Appointment [facility] Open MRI [address] [place] [address] [place] [address] [facility]. [address] [place] [phone] 03/02/2025 3:20 PM CDT Office Visit [facility] Family & Internal Medicine - [address] [phone] [place] [address] [facility]. [address] [place] [address] documented as of this encounter Visit Diagnoses Not on filedocumented in this encounter Additional Health Concerns Assessment Noted Time PHQ-9 Depression Total Score: 2 05/27/20 22 11:36 AM CDT documented as of this encounter Care Teams Glassware Maker Demonstrator Relationship Specialty Start Date End Date Jaspreet Pearl MD PCP - General INTERNAL MEDICINE 11/30/18 02/18/23 documented as of this encounter
--- OUTSIDE RECORDS SUMMARY | 2024-11-13 17:53 | XMS_ITS | Encounter Summary ---
Author Organization [facility] Address [address] [place] [address]. [place] [address] [place] [address] Care Team Providers Care Spinner Tender Name Role Phone Jaspreet Pearl MD Primary Care Provider U navailable Reason for Visit * Auth/Cert Specialty Diagnoses / Procedures Referred By Chalino t Referred To Contact Diagnoses Pharyngoesophageal dysphagia Encounter for screening colonoscopy Screening and pharynesophageal dysphagia Procedures COLONOSCOPY EGD Referral ID Status Reason Start Date Expiration Date Visits Re quested Visits Authorized [id number] 1 1 Encounter Details Date Type Department Care Team (Late st Contact Info) Description 03/17/2021 11:01 AM CDT Anesthesia Event [facility] [address] Dawna Cifuentes MD Anesthesia Record Procedure Summary Procedure Name Responsible Anesthesiologist Anesthesia Start Time Anesthesia Stop Time COLONOSCOPY-NORMAL Dawna Cifuentes MD 03/17/21 1101 05/0 02/02 1137 Events Date Time Event Comment 03/17/2021 0955 0955 AN Anesthesia Prepped 1046 AN REED PRESS FEEDER Prepped 1101 An Start Patient ID and [...] Master's degree (e.g., MA, MS, Howard, MEd, DUB ROOM ENGINEER, KEKE) 12/21/2018 Comments No Sex and [...] st Contact Info) Description 11/14/2024 8:00 AM SCREEN PRINTING MACHINE OPERATOR Office Visit [facility] Medical Group Multispecialty Care - [address], [address] [place] [phone] Montserrat Oliver NP [address] [place] [address] [place] [address] 12/06/2024 9:30 AM SCREEN PRINTING MACHINE OPERATOR Appointment [facility] Open MRI [address] [place] [address] [place] [address] [place], [place] [phone] 03/02/2025 3:20 PM CDT Office Visit [facility] Medical Group Family & Internal Medicine - [place] [address] [place] [address] [place] [address] [place], [place] [phone] documented as of this encounter Visit Diagnoses [...] documented as of this encounter Care Teams Spinner Tender Relationship Specialty Start Date End Date Jaspreet Pearl MD PCP - General INTERNAL MEDICINE 11/30/18 02/18/23 documented as of this encounter
--- OUTSIDE RECORDS SUMMARY | 2024-11-13 17:53 | XMS_ITS | Encounter Summary ---
Author Organization [facility] Address [address] [place] [address]. [place], [place] [address] [place] [address] Care Team Providers Care Contract Administration Coordinator Name Role Phone Jaspreet Pearl MD Primary Care Provider U Kelsey Dey NP Primary Care Provider [phone] Dayanara Plaza MD Primary Care Provider [phone] Perez Cervantes MD Unavailable Adriana Ma MD Unavailable [phone] Encounter Details Date Type Department Care Team (Late st Contact Info) Description 02/25/[address] [facility] [address] [place] [address] [facility] Provider RE:pain Social History Tobacco Use Types [...] Master's degree (e.g., MA, MS, Howard, MEd, BRIDGE BUILDER, KEKE) 12/21/2018 Comments No Sex and Gender [...] Contact Info) Description 11/14/2024 8:00 AM WAREHOUSE TEAM MEMBER Office Visit [facility] Multispecialty Care - [address], [address] [place] [phone] Montserrat Oliver NP [address] [place] [address] [place] [address] 12/06/2024 9:30 AM WAREHOUSE TEAM MEMBER Appointment [facility] Open MRI [address] [place] [address] [place] [address] [facility] [place] [address] 03/02/2025 3:20 PM CDT Office Visit [facility] Family & Internal Medicine - [address] [phone] [place] [address] [facility]. [address] [place] [address] documented as of this encounter Visit Diagnoses Not on filedocumented in this encounter Additional Health Concerns Infection Onset Date Last Indicated Resolved Time COVID-19 Rule Out 03/14/2021 03/14/2021 03/15/2021 1:26 PM CDT COVID-19 Rule Out 04/03/2024 04/03/2024 04/03/2024 11:38 AM CDT Assessment Noted Time PHQ-9 Depression Total Score: 4 05/01/20 19 3:05 PM CDT documented as of this encounter Care Teams Contract Administration Coordinator Relationship Specialty Start Date End Date Jaspreet Pearl MD PCP - General INTERNAL MEDICINE 11/30/18 02/18/23 Kelsey Kc, PIANO REGULATOR INSPECTOR [address] [address] [place] [address] PCP - General Nurse Practitioner Family 02/19/23 02/28/23 [place] [address] [address] [place] [address] PCP - General FAMILY PRACTICE 03/01/23 Perez Cervantes MD [address] [phone] RHEUMATOLOGY 09/02/23 Adriana Ma MD [address] [place] [address] Referring Physician ALLERGY 09/02/23 documented as of this encounter
--- OUTSIDE RECORDS SUMMARY | 2024-11-13 17:53 | XMS_ITS | Encounter Summary ---
Author Organization [facility] Address [address] [place] [address]. [place], [place] [address] [place] [address] Care Team Providers Care Pneumatic Tool Repairer Name Role Phone Jaspreet Madsen MD Primary Care Provider Felipe rangel Reason for Visit * Reason Comments Sore Throat Started Wednesday with a sore throat and fever and it still hurts Encounter Details Date Type Department Care Team (Late st Contact Info) Description 12/29/2022 7:20 AM ARTIST'S REPRESENTATIVE Office Visit [facility] Medical Group Family & Internal Medicine [facility] [address] [place] [address] Allyson Arzola, DISPLAYER MERCHANDISE [address] [address] Sore Throat (Started Wednesday with [...] Coronavirus/COVID-19? No / Unsure 12/29/2022 7:12 AM ARTIST'S REPRESENTATIVE documented as of this encounter Last Filed Vital Signs Vital Sign Reading Time Taken Comments Blood Pressure 102/70 12/29/2022 7:41 AM ARTIST'S REPRESENTATIVE Pulse 78 12/29/2022 7:41 AM ARTIST'S REPRESENTATIVE Temperature 36.9 ??C (98.4 ??F) 12/29/2022 7:41 AM CS T Respiratory Rate 20 12/29/2022 7:41 AM ARTIST'S REPRESENTATIVE Oxygen Saturation 99% 12/29/2022 7:41 AM ARTIST'S REPRESENTATIVE Inhaled Oxygen Concentration - - Weight 76.4 kg (168 lb 6.4 oz) 12/29/2022 7:41 A M ARTIST'S REPRESENTATIVE Height 172.7 cm (5' 8 ) 12/29/2022 7:41 AM ARTIST'S REPRESENTATIVE Body Mass Index 25.61 12/29/2022 7:41 AM ARTIST'S REPRESENTATIVE documented in this encounter Patient Instructions * Patient Instructions* Allyson Arzola APRN - 12/29/2022 7:20 AM ARTIST'S REPRESENTATIVE Thank you for your visit! Utilize Ibuprofen [...] . Observe pt contactsfor signs/symptoms of illness. ST'S REPRESENTATIVE ST'S REPRESENTATIVE documented in this encounter Progress Notes * Talita Phillips LPN - 12/29/2022 7:20 AM CST strep ST'S REPRESENTATIVE * Allyson Arzola APRN - 12/29/2022 7:20 [...] daily., Disp: 90 tablet, Rfl: 1 ??? LLN-WAZ-Xhfyczq E 192-251-11 MG-MG-UNIT Cap, Take 1 capsule [...] COLONOSCOPY-NORMAL performed by Niall Matute MD at [facility] ??? LAMINECTOMY,LUMBAR ??? SEPTOPLASTY Social History Socioeconomic History ??? Marital status: Spouse name: Cl ??? Number of children: 4 ??? 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 provider found PCP: JASPREET MADSEN MD ST'S REPRESENTATIVE documented in this encounter Plan of Treatment Upcoming Encounters Date Type Department Care Team (Late st Contact Info) Description 11/14/2024 8:00 AM ARTIST'S REPRESENTATIVE Office Visit [facility] Multispecialty Care - [facility] 3 [facility], [address] [place] [address] Montserrat Oliver NP 3 [facility] [address] [place] [address] 12/06/2024 9:30 AM ARTIST'S REPRESENTATIVE Appointment [facility] Open MRI [address] [place] [address] [place] [address] [facility] [address] [place] [address] 03/02/2025 3:20 PM CDT Office Visit [facility] Family & Internal Medicine - [address] [address] [place] [address] [facility]. [address] [place] [address] documented as of this encounter Procedures Procedure Name Priority Date/Time Associated Diagnosis Comments RAPID STREP A Routine 12/29/2022 Sore throat documented in this encounter Results * CULTURE STREP A (12/29/2022 7:59 AM ARTIST'S REPRESENTATIVE) SPEC DESCRIPTION THROAT 12/29/2022 12:33 PM ARTIST'S REPRESENTATIVE [facility] SPECIAL REQUESTS NO SPECIAL REQUEST 12/29/2022 12:33 PM ARTIST'S REPRESENTATIVE [facility] CULTURE RESULT NO STREPTOCOCCUS PYOGENES (GROUP A) ISOLATED 12/31/2022 8:03 [address] [facility] THROAT SWAB / Unknown 12/29/2022 7:59 AM ARTIST'S REPRESENTATIVE 12/29/2022 12:46 PM ARTIST'S REPRESENTATIVE Allyson Arzola APRN MICROBIOLOGY - GENERAL ORD ERABLES Final Result [facility] [address] [place] [address], [place] [phone] [facility] [address] [place] [address], [place] [phone] * RAPID STREP A (12/29/2022) RAPID STREP TEST NEGATIVE NEGATIVE [id number] MARGARITA SEGURA Internal Control: VALID VALID [id number] [address] [place] STRUCTURE OF ANTERIOR PORTION OF NECK / Unknown 12/29/2022 Allyson Arzola APRN MICROBIOLOGY - GENERAL ORD ERABLES Final Result Performing Organization Address City/[facility]/ZIP Co de Phone Number -[phone] [address] [place] [address] [place] [address], [place] [phone] documented in this encounter Visit Diagnoses Diagnosis Sore throat- Primary Acute pharyngitis Exposure to strep throat Contact with or exposure to other communicable diseases Acute viral syndrome documented in this encounter Additional Health Concerns Assessment Noted Time PHQ-9 Depression Total Score: 2 05/27/20 22 11:36 AM CDT documented as of this encounter Care Teams Pneumatic Tool Repairer Relationship Specialty Start Date End Date Jaspreet Madsen MD PCP - General INTERNAL MEDICINE 11/30/18 02/18/23 documented as of this encounter
--- OUTSIDE RECORDS SUMMARY | 2024-11-13 17:53 | XMS_ITS | Encounter Summary ---
Author Organization [facility] Address [address] [place] [address]. [place], [place] [address] [place] [address] Care Team Providers Care Collar Packer Name Role Phone Jaspreet Madsen MD Primary Care Provider U juan carlos Reason for Visit * Reason Comments Knee Pain R knee pain 02/12/21 - has been using the RICE method Encounter Details Date Type Department Care Team (Late st Contact Info) Description 02/17/2021 1:20 PM CDT Office Visit [facility] [address] [place] [address] Jaspreet Madsen MD Knee Pain [...] Master's degree (e.g., MA, MS, Howard, MEd, SPINNER HAND, KEKE) 12/21/2018 Comments No Sex and [...] daily., Disp: 30 tablet, Rfl: 2 ??? EDY-RTG-Eutbvrr E (OMEGA-3 COMPLEX) 192-251-11 MG-MG-UNIT Cap, Take [...] Master's degree (e.g., MA, MS, Howard, MEd, SPINNER HAND, KEKE) Occupational History ??? 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 Social [...] file Gets together: Not on file Attends latter-day service: Not on file Active member of [...] st Contact Info) Description 11/14/2024 8:00 AM CASEY SAW OPERATOR Office Visit [facility] Medical Group Multispecialty Care - [facility] 3 [facility], [address] [place] [address] Montserrat Oliver, CREDIT PORTFOLIO ADVISOR [address] [place] [address] 12/06/2024 9:30 AM CASEY SAW OPERATOR [facility] [address] [place] [address] [place] [address] [place] [address] 03/02/2025 3:20 PM CDT Office Visit [facility] Medical Group Family & Internal Medicine - [address] [phone] [place] [address] [place] [address] documented as of this encounter Visit Diagnoses Diagnosis Acute pain of right knee- Primary documented in this encounter Additional Health Concerns Assessment Noted Time PHQ-9 Depression Total Score: 4 05/01/20 19 3:05 PM CDT documented as of this encounter Care Teams Collar Packer Relationship Specialty Start Date End Date Jaspreet Madsen MD PCP - General INTERNAL MEDICINE 11/30/18 02/18/23 documented as of this encounter
--- OUTSIDE RECORDS SUMMARY | 2024-11-13 17:53 | XMS_ITS | Encounter Summary ---
Author Organization [facility] Address [address] [place] [address]. [place], [place] [address] [place] [address] Care Team Providers Care Agricultural Education Instructor Name Role Phone Jaspreet Madsen MD Primary Care Provider U navailable Reason for Visit * Reason Comments Annual Pt here for yearly p hysical Medication Management Pt needs medicatio n refills Encounter Details Date Type Department Care Team (Late st Contact Info) Description 01/29/2023 8:40 AM CDT Office Visit [facility] Medical Group Family & Internal Medicine [address] [address] Jaspreet Madsen MD Annual (Pt [...] Master's degree (e.g., MA, MS, Howard, MEd, BRUSH TRIMMING MACHINE SETTER, KEKE) 12/21/2018 Comments No Sex [...] with Dr. Plaza and katalina has a drum sprayer. She is otherwise very healthy and is [...] 12/29/2022), Disp: 30 tablet, Rfl: 0 ??? RFB-GOU-Lgbygsr E 192-251-11 MG-MG-UNIT Cap, Take 1 capsule [...] by Niall Matute MD at [facility] ??? LAMINECTOMY,LUMBAR ??? SEPTOPLASTY Social History Socioeconomic History ??? Marital status: Spouse name: Cl ??? Number of children: 4 ??? 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 Polyarthritis Continue care with the drum sprayer taking anti-inflammatory medicines and methotrexate Orders Placed This Encounter ??? nabumetone (RELAFEN) 500 MG tablet Follow up FU 6 MONTHS JASPREET MADSEN MD 01/29/2023 9:09 AM documented in this encounter Plan of Treatment Upcoming Encounters Date Type Department Care Team (Late st Contact Info) Description 11/14/2024 8:00 AM MANAGER CARDIAC CATH Office Visit [facility] Multispecialty Care - [facility] 3 [facility], [address] [place] [address] Montserrat Oliver NP 3 [facility] [address] [place] [address] 12/06/2024 9:30 AM MANAGER CARDIAC CATH Appointment [facility] MRI [address] [place] [address] [place] [address] [facility] [address] [place] [phone] 03/02/2025 3:20 PM CDT Office Visit [facility] Family & Internal Medicine - [address] [phone] [place] [address] [facility]. [address] [place] [address] documented as of this encounter Visit Diagnoses Diagnosis Recurrent major depressive disorder, in partial remission (CMS/HCC)- Primary DURAN (generalized anxiety disorder) Generalized anxiety disorder Polyarthritis Unspecified polyarthropathy or polyarthritis, site unspecified documented in this encounter Additional Health Concerns Assessment Noted Time PHQ-9 Depression Total Score: 2 05/27/20 22 11:36 AM CDT documented as of this encounter Care Teams Agricultural Education Instructor Relationship Specialty Start Date End Date Jaspreet Madsen MD PCP - General INTERNAL MEDICINE 11/30/18 02/18/23 documented as of this encounter
--- OUTSIDE RECORDS SUMMARY | 2024-11-13 17:53 | XMS_ITS | Encounter Summary ---
Author Organization [facility] Address [address] [place] [address]. [place], [place] [address] [place] [address] Care Team Providers Care Commercial Production Editor Name Role Phone Jaspreet Madsen MD Primary Care Provider U juan carlos Reason for Visit * Reason Onset Date Comments Med Refills 05/21/2022 Encounter Details Date Type Department Care Team (Late st Contact Info) Description 05/21/2022 Telephone [facility] Medical Group Family & Internal Medicine [address] [address] Jaspreet Madsen MD Med Refills [...] Master's degree (e.g., MA, MS, Howard, MEd, SETTER HELPER, KEKE) 12/21/2018 Comments No Sex and [...] Pharmacy: [facility] Call back #: [phone] Last office visit at this office: Last visit with JASPREET MADSEN in [facility] was on: 11/04/2021 in [facility] Future appointment scheduled: No future appointments. documented in this encounter Plan of Treatment Upcoming Encounters Date Type Department Care Team (Late st Contact Info) Description 11/14/2024 8:00 AM MACHINE HEEL BUILDER Office Visit [facility] Multispecialty [facility] 3 [facility], [address] [place] [address] Motnserrat Oliver NP 3 [facility] [address] [place] [address] 12/06/2024 9:30 AM MACHINE HEEL BUILDER [facility] [address] [facility] [place] [place] [address] [place] [address] [facility] K[facility]ao Corpe. [address] [place] [address] 03/02/2025 3:20 PM CDT Office Visit [facility] Medical Group Family & Internal Medicine - [address] [phone] [place] [address] [address] [place] [address] documented as of this encounter Visit Diagnoses Diagnosis Seasonal allergies Allergic rhinitis, cause unspecified DURAN (generalized anxiety disorder) Generalized anxiety disorder documented in this encounter Additional Health Concerns Assessment Noted Time PHQ-9 Depression Total Score: 0 05/02/20 21 2:11 PM CDT documented as of this encounter Care Teams Commercial Production Editor Relationship Specialty Start Date End Date Jaspreet Madsen MD PCP - General INTERNAL MEDICINE 11/30/18 02/18/23 documented as of this encounter
--- OUTSIDE RECORDS SUMMARY | 2024-11-13 17:53 | XMS_ITS | Encounter Summary ---
Author Organization [facility] Address [address] [place] [address]. [place] [address] [place] [address] Care Team Providers Care Inspector Tool Name Role Phone Jaspreet Pearl MD Primary Care Provider Felipe archerelijah Encounter Details Date Type Department Care Team (Latest Contact Info) Description 03/14/2021 10:50 AM CDT - 03/14/2021 11:59 PM T Hospital Encounter [facility] [place] [address] Niall Matute MD 3 [facility] [address] [place] [address] Discharge Disposition: Home or Self Care (Routine [...] Master's degree (e.g., MA, MS, Howard, MEd, BANDER HAND, KEKE) 12/21/2018 Comments No Sex and [...] mouth daily. 30 tablet 2 11/20/2020 1 WLM-QRN-Flprzlv E 192-251-11 MG-MG-UNIT Cap Take 1 capsule [...] st Contact Info) Description 11/14/2024 8:00 AM SAFETY TEACHER Office Visit [facility] Multispecialty Care - [facility] 3 [facility], [address] [place] [phone] Montserrat Oliver NP 3 [facility] [address] [place] [address] 12/06/2024 9:30 AM SAFETY TEACHER Appointment [facility] Open [facility] [address] [place] [address] [place] [address] [facility] [place] [address] 03/02/2025 3:20 PM CDT Office Visit [facility] Medical [facility] Family & Internal Medicine - [address] [address] [place] [address] [address] [place] [id number] documented as of this encounter Procedures Procedure Name Priority Date/Time Associated Diagnosis Comments CORONAVIRUS (COVID 19) STAT 03/14/2021 11:20 AM CDT Pharyngoesophageal dysphagia documented in this encounter Results * PRE-SURGICAL/PRE-PROCEDURE CORONAVIRUS (COVID 19) (03/14/2021 11:20 AM CDT) CORONAVIRUS SARS COV 2 PCR (RESP) NOT DETECTED NOT DETECTED 03/15/2021 1:26 PM CDT [facility] Comment: A Not Detected (negative) test [...] providers and patients using the following websites: https://www.[employer]/home/Covid-19/HCP/rc- ycxm-rhx2-gcht-sheet.html https://www.[employer]/home/Covid-19/Patients/ hk-ijfa-nbx7-fact-sheet.html This test has been authorized by the FDA under an Emergency Use Authorization (EUA) for use by authorized laboratories. Due to the current public health emergency, [facility] is receiving a high volume of samples [...] about COVID-19 can be found at the [facility] website: www.[employer]/Covid19. Test performed at [facility] [address] ??[phone] Director: ASPEN HOLLINGSWORTH DO,MPH FIRST TEST NO 03/14/2021 12:08 PM CDT [facility] EMPLOYED IN HEALTHCARE NO 03/14/2021 12:08 PM CDT [facility] SYMPTOMATIC DEFINED BY CDC NO 03/14/2021 12:08 PM CDT [facility] DATE OF SYMPTOM ONSET NO 03/14/2021 12:48 PM CDT [facility] HOSPITALIZATION STATUS NO 03/14/2021 12:08 PM CDT [facility] PATIENT IN ICU NO 03/14/2021 12:08 PM CDT [facility] RESIDENT OF [facility] NO 03/14/2021 12:08 PM CDT [facility] NO 03/14/2021 12:48 PM CDT [facility] PATIENT'S RACE WHITE OR 03/14/2021 12:08 PM CDT [facility] ETHNICITY NONHISPANIC 03/14/2021 12:08 PM CDT [facility] SOURCE (QST) NASOPHARYNGEAL SWAB 03/14/2021 12:08 PM CDT [facility] NASOPHARYNGEAL SWAB / Unknown 03/14/2021 11:20 AM CDT us Niall Matute MD MICROBIOLOGY - GENERAL ORDERABLE S Final Result [facility] [address] [place] [address], [place] [phone] [facility] [address] [place] [address], documented in this encounter Visit Diagnoses Diagnosis Pharyngoesophageal dysphagia Dysphagia, pharyngoesophageal phase documented in this encounter Additional Health Concerns Infection Onset Date Last Indicated Resolved Time COVID-19 Rule Out 03/14/2021 03/14/2021 03/15/2021 1:26 PM CDT Assessment Noted Time PHQ-9 Depression Total Score: 4 05/01/20 19 3:05 PM CDT documented as of this encounter Care Teams Inspector Tool Relationship Specialty Start Date End Date Jaspreet Pearl MD PCP - General INTERNAL MEDICINE 11/30/18 02/18/23 documented as of this encounter
--- OUTSIDE RECORDS SUMMARY | 2024-11-13 17:53 | XMS_ITS | Encounter Summary ---
Author Organization [facility] Address [address] [place] [address]. [place] [address] [place] [address] Care Team Providers Care Ore Smelter Name Role Phone Jaspreet Pearl MD Primary [...] degree (e.g., MA, MS, Howard, MEd, MANAGER POWER, KEKE) 12/21/2018 Comments No Sex and Gender [...] COVID-19? No / Unsure 11/01/2021 10:24 AM MANAGER COMMERCIAL SALES documented as of this encounter Plan of Treatment Upcoming Encounters Date Type Department Care Team (Late st Contact Info) Description 11/14/2024 8:00 AM MANAGER COMMERCIAL SALES Office Visit [facility] Multispecialty Care - [facility] 3 [facility], [address] [place] [address] Montserrat Oliver NP 3 [facility] [address] [place] [address] 12/06/2024 9:30 AM MANAGER COMMERCIAL SALES Appointment [facility] Open MRI [address] [place] [address] [place] [address] [facility]. [address] [place] [address] 03/02/2025 3:20 PM CDT Office Visit [facility] Family & Internal Medicine - [address] [address] [place] [address] [facility]. [address] [place] [address] documented as of this encounter Visit Diagnoses Not on filedocumented in this encounter Additional Health Concerns Assessment Noted Time PHQ-9 Depression Total Score: 0 05/02/20 21 2:11 PM CDT documented as of this encounter Care Teams Ore Smelter Relationship Specialty Start Date End Date Jaspreet Pearl MD PCP - General INTERNAL MEDICINE 11/30/18 02/18/23 documented as of this encounter
--- OUTSIDE RECORDS SUMMARY | 2024-11-13 17:53 | XMS_ITS | Encounter Summary ---
Author Organization [facility] Address [address] [place] [address]. [place], [place] [address] [place] [address] Care Team Providers Care Shuttler Name Role Phone Jaspreet Pearl MD Primary Care Provider Felipe juan carlos Encounter Details Date Type Department Care Team (Late st Contact Info) Description 04/06/2022 Medication Management [facility] Medical Group Family & Internal Medicine [address] [address] Jaspreet Pearl MD Social History [...] Master's degree (e.g., MA, MS, Howard, MEd, ABRADING MACHINE TENDER, KEKE) 12/21/2018 Comments No Sex [...] st Contact Info) Description 11/14/2024 8:00 AM ADMINISTRATIVE AIDE Office Visit [facility] Multispecialty Care - [facility] 3 [facility], [address] [place] [address] Montserrat Oliver NP 3 [facility] [address] [place] [address] 12/06/2024 9:30 AM ADMINISTRATIVE AIDE Appointment [facility] Open MRI [address] [place] [address] [place] [address] [facility]. [address] [place] [address] 03/02/2025 3:20 PM CDT Office Visit [facility] Family & Internal Medicine - [address] [phone] [place] [address] [facility]. [address] [place] [address] documented as of this encounter Visit Diagnoses Diagnosis Fever, unspecified fever cause- Primary DURAN (generalized anxiety disorder) Generalized anxiety disorder documented in this encounter Additional Health Concerns Assessment Noted Time PHQ-9 Depression Total Score: 0 05/02/20 21 2:11 PM CDT documented as of this encounter Care Teams Shuttler Relationship Specialty Start Date End Date Jaspreet Pearl MD PCP - General INTERNAL MEDICINE 11/30/18 02/18/23 documented as of this encounter
--- OUTSIDE RECORDS SUMMARY | 2024-11-13 17:53 | XMS_ITS | Encounter Summary ---
Author Organization [facility] Address [address] [place] [address]. [place] [address] [place] [address] Care Team Providers Care Artist Woodblock Name Role Phone Jaspreet Pearl MD Primary [...] Master's degree (e.g., MA, MS, Howard, MEd, TREE CHIPPER, KEKE) 12/21/2018 Comments No Sex and Gender [...] Coronavirus / COVID-19? Yes 11/18/2021 4:16 PM CONTRACT CLERK documented as of this encounter Plan of Treatment Upcoming Encounters Date Type Department Care Team (Late st Contact Info) Description 11/14/2024 8:00 AM CONTRACT CLERK Office Visit [facility] Multispecialty Care - [facility] 3 [facility], [address] [place] [address] Montserrat Oliver, DOREEN 3 [facility] [address] [place] [address] 12/06/2024 9:30 AM CONTRACT CLERK Appointment [facility] Open MRI [address] [place] [address] [place] [address] [address] [place] [address] 03/02/2025 3:20 PM CDT Office Visit [facility] Family & Internal Medicine - [address] [address] [place] [address] [address] [place] [address] documented as of this encounter Visit Diagnoses Not on filedocumented in this encounter Additional Health Concerns Assessment Noted Time PHQ-9 Depression Total Score: 0 05/02/20 21 2:11 PM CDT documented as of this encounter Care Teams Artist Woodblock Relationship Specialty Start Date End Date Jaspreet Pearl MD PCP - General INTERNAL MEDICINE 11/30/18 02/18/23 documented as of this encounter
--- OUTSIDE RECORDS SUMMARY | 2024-11-13 17:53 | XMS_ITS | Encounter Summary ---
Author Organization [facility] Address [address] [place] [address]. [place] [address] [place] [address] Care Team Providers Care Manufacturing Engineer Assembly Name Role Phone Jaspreet Pearl MD Primary [...] Master's degree (e.g., MA, MS, Howard, MEd, PANEL INSTALLER, KEKE) 12/21/2018 Comments No Sex and Gender [...] st Contact Info) Description 11/14/2024 8:00 AM DYNAMIC ETCHING PROCESSOR Office Visit [facility] Multispecialty Care - [facility] 3 [facility], [address] [place] [address] Montserrat Oliver NP 3 [facility] [address] [place] [address] 12/06/2024 9:30 AM DYNAMIC ETCHING PROCESSOR Appointment [facility] Open MRI [address] [place] [address] [place] [address] [facility] [address] [place] [phone] 03/02/2025 3:20 PM CDT Office Visit [facility] Family & Internal Medicine - [address] [phone] [place] [address] [facility] [place] [address] documented as of this encounter Visit Diagnoses Not on filedocumented in this encounter Additional Health Concerns Assessment Noted Time PHQ-9 Depression Total Score: 2 05/27/20 22 11:36 AM CDT documented as of this encounter Care Teams Manufacturing Engineer Assembly Relationship Specialty Start Date End Date Jaspreet Pearl MD PCP - General INTERNAL MEDICINE 11/30/18 02/18/23 documented as of this encounter
--- OUTSIDE RECORDS SUMMARY | 2024-11-13 17:53 | XMS_ITS | Encounter Summary ---
Author Organization [facility] Address [address] [place] [address]. [place], [place] [address] [place] [address] Care Team Providers Care Gum Rolling Machine Tender Name Role Phone Dayanara Plaza MD Primary Care Provider [phone] Reason for Visit * Reason Comments Anxiety Pt having worsening anxiety. Pt states she had a higher then normal BP and the school nurse said to come to the doc. Encounter Details Date Type Department Care Team (Late st Contact Info) Description 03/03/2023 4:00 PM CDT Office Visit [facility] Family & Internal Medicine [facility] [address] [place] [phone] Allyson Arzola, BRIANA [address] [facility] [address] [place] [address] Anxiety (Pt having worsening anxiety. Pt [...] degree (e.g., MA, MS, Howard, MEd, MANAGER BILINGUAL, KEKE) 12/21/2018 Comments No Sex and Gender [...] concern for anxiety. 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 Reviewed vital signs taken in office today. Denies chest pain, SOB, dizziness, nausea, or LOC changes. - Patient reports she had a vaso vagal incident at the co chairman office recently. She reports thishas not happened since but she has felt some increased anxiety lately. She states her family is having some issues arise lately along with her upcoming fdc. She is wanting address her daily anxiety [...] bowel syndrome) Inflammatory arthritis RA (rheumatoid arthritis) ([facility]) Wears glasses Past Surgical History: Procedure Laterality Date CHOLECYSTECTOMY COLONOSCOPY AH 9 yrs. 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 [place] [address] 03/02/2025 3:20 PM CDT Office Visit [facility] Medical Group Family & Internal Medicine - [address] [phone] [place] [address] [place] [address] documented as of this encounter Visit Diagnoses Diagnosis Anxiety- Primary Anxiety state, unspecified Vasovagal syncope Syncope and collapse DURAN (generalized anxiety disorder) Generalized anxiety disorder documented in this encounter Additional Health Concerns Assessment Noted Time PHQ-9 Depression Total Score: 2 05/27/20 22 11:36 AM CDT documented as of this encounter Care Teams Gum Rolling Machine Tender Relationship Specialty Start Date End Date Dayanara Plaza MD [address] [place], [place] [address] [place] [address] PCP - General FAMILY PRACTICE 03/01/23 documented as of this encounter
--- OUTSIDE RECORDS SUMMARY | 2024-11-13 17:53 | XMS_ITS | Encounter Summary ---
Author Organization [facility] Address [address] [place] [address]. [place] [address] [place] [address] Care Team Providers Care Animal Cytologist Name Role Phone Jaspreet Pearl MD Primary [...] Master's degree (e.g., MA, MS, Howard, MEd, SAFETY AND OCCUPATIONAL HEALTH MANAGER, KEKE) 12/21/2018 Comments No Sex and [...] COVID-19? No / Unsure 11/11/2021 8:18 AM COMMERCIAL DECORATOR documented as of this encounter Plan of Treatment Upcoming Encounters Date Type Department Care Team (Late st Contact Info) Description 11/14/2024 8:00 AM COMMERCIAL DECORATOR Office Visit [facility] Multispecialty Care - [facility] 3 [facility], [address] [place] [address] Montserrat Oliver NP 3 [facility] [address] [place] [address] 12/06/2024 9:30 AM COMMERCIAL DECORATOR Appointment [facility] Open MRI [address] [place] [address] [place] [address] [facility]. [address] [place] [phone] 03/02/2025 3:20 PM CDT Office Visit [facility] Family & Internal Medicine - [address] [address] [place] [address] [facility]. [address] [place] [address] documented as of this encounter Visit Diagnoses Not on filedocumented in this encounter Additional Health Concerns Assessment Noted Time PHQ-9 Depression Total Score: 0 05/02/20 21 2:11 PM CDT documented as of this encounter Care Teams Animal Cytologist Relationship Specialty Start Date End Date Jaspreet Pearl MD PCP - General INTERNAL MEDICINE 11/30/18 02/18/23 documented as of this encounter
--- OUTSIDE RECORDS SUMMARY | 2024-11-13 17:53 | XMS_ITS | Encounter Summary ---
Author Organization [facility] Address [address] [place] [address]. [place] [address] [place] [address] Care Team Providers Care Picking Machine Operator Name Role Phone Jaspreet Pearl [...] Master's degree (e.g., MA, MS, Howard, MEd, FIRE ALARM REPAIRER, KEKE) 12/21/2018 Comments No Sex and [...] st Contact Info) Description 11/14/2024 8:00 AM CLINICAL SUPPORT TECH Office Visit [facility] Mult[facility]pecialty Care - [facility] 3 [facility], [place] [facility] [address] Montserrat Oliver NP 3 [facility] [address] [place] [address] 12/06/2024 9:30 AM CLINICAL SUPPORT TECH Appointment [facility] Open MRI [address] [place] [address] [place] [address] [facility]. [address] [place] [phone] 03/02/2025 3:20 PM CDT Office Visit [facility] Family & Internal Medicine - [address] [address] [place] [address] [facility]. [address] [place] [address] documented as of this encounter Visit Diagnoses Not on filedocumented in this encounter Additional Health Concerns Assessment Noted Time PHQ-9 Depression Total Score: 2 05/27/20 22 11:36 AM CDT documented as of this encounter Care Teams Picking Machine Operator Relationship Specialty Start Date End Date Jaspreet Pearl MD PCP - General INTERNAL MEDICINE 11/30/18 02/18/23 documented as of this encounter
--- OUTSIDE RECORDS SUMMARY | 2024-11-13 17:53 | XMS_ITS | Encounter Summary ---
Author Organization [facility] Address [address] [place] [address]. [place], [place] [address] [place] [address] Care Team Providers Care Rotary Furnace Tender Name Role Phone Jaspreet Madsen MD Primary Care Provider U juan carlos Reason for Visit * Reason Comments Follow Up Follow up on hip bur sitis, medication refill Encounter Details Date Type Department Care Team (Late st Contact Info) Description 11/04/2021 11:40 AM OPTICAL ENGINEERING MANAGER Office Visit [facility] Family & Internal Medicine [address] [address] Jaspreet Madsen MD Follow Up [...] Master's degree (e.g., MA, MS, Howard, MEd, DATASTAGE DEVELOPER, KEKE) 12/21/2018 Comments No Sex and [...] COVID-19? No / Unsure 11/04/2021 11:29 AM OPTICAL ENGINEERING MANAGER documented as of this encounter Last Filed Vital Signs Vital Sign Reading Time Taken Comments Blood Pressure 102/64 11/04/2021 11:38 AM OPTICAL ENGINEERING MANAGER Pulse 62 11/04/2021 11:38 AM OPTICAL ENGINEERING MANAGER Temperature 36.6 ??C (97.8 ??F) 11/04/2021 11:[address] Respiratory Rate 20 11/04/2021 11:38 AM OPTICAL ENGINEERING MANAGER Oxygen Saturation 98% 11/04/2021 11:38 AM OPTICAL ENGINEERING MANAGER Inhaled Oxygen Concentration - - Weight 79.1 kg (174 lb 6.4 oz) 11/04/2021 11:38 AM OPTICAL ENGINEERING MANAGER Height 172.7 cm (5' 8 ) 11/04/2021 11:38 AM OPTICAL ENGINEERING MANAGER Body Mass Index 26.52 11/04/2021 11:38 AM OPTICAL ENGINEERING MANAGER documented in this encounter Progress Notes [...] generalized osteoarthritis for which he sees a manager operating in [place] and she takes several medications for that she also has a history of generalized anxiety and today she comes with pain in both hips shetold that to the manager operating who told her that I was bursitis [...] daily., Disp: 90 tablet, Rfl: 1 ??? BAB-CJT-Yuxergx E (OMEGA-3 COMPLEX) 192-251-11 MG-MG-UNIT Cap, Take [...] COLONOSCOPY-NORMAL performed by Niall Matute MD at [facility] ??? LAMINECTOMY,LUMBAR ??? SEPTOPLASTY Social History Socioeconomic History ??? Marital status: Spouse name: Cl ??? Number of children: 4 ??? Years of education: Not on file ??? Highest education level: Master's degree (e.g., MA, MS, Howard, MEd, DATASTAGE DEVELOPER, KEKE) Occupational History ??? 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 [...] MONTHS JASPREET MADSEN MD 11/04/2021 12:22 PM CAL ENGINEERING MANAGER documented in this encounter Plan of Treatment Upcoming Encounters Date Type Department Care Team (Late st Contact Info) Description 11/14/2024 8:00 AM OPTICAL ENGINEERING MANAGER Office Visit [facility] Multispecialty Care - [address], [address] [place] [phone] Montserrat Oliver NP 3 [facility] [address] [place] [address] 12/06/2024 9:30 AM OPTICAL ENGINEERING MANAGER Appointment [facility] Open MRI [address] [place] [address] [place] [address] [facility] [employer]. [address] [place] [address] 03/02/2025 3:20 PM CDT Office Visit [facility] Family & Internal Medicine - [place] [address] [place] [phone] [place] [address] [facility] [employer]. [address] [place] [address] documented as of this encounter Visit Diagnoses [...] is,Hip pain, bilateral Given 11/04/2021 12:39 PM OPTICAL ENGINEERING MANAGER 40 mg Right Upper Outer Quadrant documented in this encounter Additional Health Concerns Assessment Noted Time PHQ-9 Depression Total Score: 0 05/02/20 2:11 PM CDT documented as of this encounter Care Teams Rotary Furnace Tender Relationship Specialty Start Date End Date Jaspreet Madsen MD PCP - General INTERNAL MEDICINE 11/30/18 02/18/23 documented as of this encounter
--- OUTSIDE RECORDS SUMMARY | 2024-11-13 17:53 | XMS_ITS | Encounter Summary ---
Author Organization [facility] Address [address] [place] [address]. [place] [address] [place] [address] Care Team Providers Care Restorative Coordinator Name Role Phone Jaspreet Pearl MD [...] Master's degree (e.g., MA, MS, Howard, MEd, QUALITY REP, KEKE) 12/21/2018 Comments No Sex and [...] st Contact Info) Description 11/14/2024 8:00 AM BI DEVELOPER Office Visit [facility] Multispecialty Care - [facility] 3 [facility], [address] [place] [address] Montserrat Oliver NP 3 [facility] [address] [place] [address] 12/06/2024 9:30 AM BI DEVELOPER Appointment [facility] Open MRI [address] [place] [address] [place] [address] [facility]. [address] [place] [phone] 03/02/2025 3:20 PM CDT Office Visit [facility] Family & Internal Medicine - [address] [address] [place] [address] [facility]. [address] [place] [address] documented as of this encounter Visit Diagnoses Not on filedocumented in this encounter Additional Health Concerns Assessment Noted Time PHQ-9 Depression Total Score: 0 05/02/20 21 2:11 PM CDT documented as of this encounter Care Teams Restorative Coordinator Relationship Specialty Start Date End Date Jaspreet Pearl MD PCP - General INTERNAL MEDICINE 11/30/18 02/18/23 documented as of this encounter
--- OUTSIDE RECORDS SUMMARY | 2024-11-13 17:53 | XMS_ITS | Encounter Summary ---
Author Organization [facility] Address [address] [place] [address]. [place], [place] [address] [place] [address] Care Team Providers Care Air Quality Technician Name Role Phone Jaspreet Madsen MD Primary Care Provider U juan carlos Reason for Visit * Reason Comments Follow Up FOLLOW UP MEDICATION S / LOOK AT LABS Encounter Details Date Type Department Care Team (Late st Contact Info) Description 05/27/2022 11:40 AM CDT Office Visit [facility] Family & Internal Medicine [address] [address] Jaspreet Madsen MD Follow Up [...] Master's degree (e.g., MA, MS, Howard, MEd, AML ANALYST, KEKE) 12/21/2018 Comments No Sex and [...] ashraf lady with history of polyarthritis seeing [employer] in [place] she also has anxiety allergies. Comes today [place] very exciting about that she is doing very well recently had a blood test [place] you [place] with her [employer] that showed that she has an increase [...] daily., Disp: 90 tablet, Rfl: 1 ??? AHX-ZWU-Lfkdqvs E 192-251-11 MG-MG-UNIT Cap, Take 1 capsule [...] performed by Niall Matute MD at [facility] GI ??? LAMINECTOMY,LUMBAR ??? SEPTOPLASTY Social History Socioeconomic History ??? Marital status: Spouse name: Cl ??? Number of children: 4 ??? 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 Multispecialty Care - [facility] 3 [facility], [address] [place] [phone] Montserrat Oliver NP 3 [facility] [address] [place] [address] 12/06/2024 9:30 AM LIQUOR MERCHANT Appointment [facility] Open MRI [address] [place] [address] [place] [address] [facility] [address] [place] [address] 03/02/2025 3:20 PM CDT Office Visit [facility] Family & Internal Medicine - [place] [address] [place] [phone] [place] [address] [address] [place] [address] documented as of this encounter Visit Diagnoses Diagnosis Recurrent major depressive disorder, in partial remission ([facility])- Primary DURAN (generalized anxiety disorder) Generalized anxiety disorder Seasonal allergies Allergic rhinitis, cause unspecified Polyarthritis Unspecified polyarthropathy or polyarthritis, site unspecified documented in this encounter Additional Health Concerns Assessment Noted Time PHQ-9 Depression Total Score: 2 05/27/20 22 11:36 AM CDT documented as of this encounter Care Teams Air Quality Technician Relationship Specialty Start Date End Date Jaspreet Madsen MD PCP - General INTERNAL MEDICINE 11/30/18 02/18/23 documented as of this encounter
--- OUTSIDE RECORDS SUMMARY | 2024-11-13 17:53 | XMS_ITS | Encounter Summary ---
Author Organization [facility] Address [address] [place] [address]. [place], [place] [address] [place] [address] Care Team Providers Care Privacy Director Name Role Phone Jaspreet Madsen MD Primary Care Provider U raynaailable Reason for Referral * Consultation/Treatment (Routine) - Closed Specialty Diagnoses / Procedures Referred By Contac t Referred To Contact ORTHOPAEDIC SURGERY / ORTHOPAEDICS Diagnoses Trigger ring finger of right hand Jaspreet Madsen MD [address], [place] [address] [place] [address] Phone: tel: fax: Referral ID Status Reason Start Date Expiration Date V isits Requested Visits Authorized [id number] Closed Specialty Services 05/02/2021 06/01/2022 100 100 Scheduling Instructions A[address] Strange Reason for Visit * Reason Comments Follow Up medication refills b ump on left hand Encounter Details Date Type Department Care Team (Late st Contact Info) Description 05/02/2021 2:20 PM CDT Office Visit [facility] Family & Internal Medicine [facility] [address] [place] [phone] Jaspreet Madsen MD Follow Up (medication [...] Master's degree (e.g., MA, MS, Howard, MEd, AUCTION ASSISTANT, KEKE) 12/21/2018 Comments No Sex and [...] daily., Disp: 90 tablet, Rfl: 1 ??? XHD-RYX-Ptkncrk E (OMEGA-3 COMPLEX) 192-251-11 MG-MG-UNIT Cap, Take [...] COLONOSCOPY-NORMAL performed by Niall Matute MD at [facility] ??? LAMINECTOMY,LUMBAR ??? SEPTOPLASTY Social History Socioeconomic History ??? Marital status: Spouse name: Cl ??? Number of children: 4 ??? Years of education: Not on file ??? Highest education level: Master's degree (e.g., MA, MS, Howard, MEd, AUCTION ASSISTANT, KEEK) Occupational History ??? 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 Attends [employer] Services: ??? Active Member of Clubs or [...] st Contact Info) Description 11/14/2024 8:00 AM FLOORWORKER LASTING Office Visit [facility] Multispecialty Care - [facility] 3 [facility], [address] [place] [phone] Montserrat Oliver NP 3 [facility] [address] [place] [address] 12/06/2024 9:30 AM FLOORWORKER LASTING Appointment [facility] Open MRI [address] [place] [address] [place] [address] [address] [place] [address] 03/02/2025 3:20 PM CDT Office Visit [facility] Group Family & Internal Medicine - [address] [phone] [place] [address] [place] [address] Scheduled Referrals Name Type Priority Associated Diagnoses [...] documented as of this encounter Care Teams Privacy Director Relationship Specialty Start Date End Date Jaspreet Madsen MD PCP - General INTERNAL MEDICINE 11/30/18 02/18/23 documented as of this encounter
--- OUTSIDE RECORDS SUMMARY | 2024-11-13 17:54 | XMS_ITS | Encounter Summary ---
Author Organization [facility] Address [address] [place] [address]. [place] [address] [place] [address] Care Team Providers Care Chief Nurse Executive Name Role Phone Jaspreet Madsen MD Primary [...] Description 08/02/2019 4:00 PM CDT Office Visit [facility] Group Family & Internal Medicine [address] [phone] Jaspreet Madsen MD Follow Up [...] Master's degree (e.g., MA, MS, Howard, MEd, MEAT LOINER, KEKE) 12/21/2018 Comments No Sex and Gender [...] twice a week., Disp: , Rfl: ??? 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 [...] file Gets together: Not on file Attends anabaptist service: Not on file Active member of [...] Contact Info) Description 11/14/2024 8:00 AM BEHAVIORAL CONSULTANT Office Visit [facility] Multispecialty Care - [address], [address] [place] [phone] Montserrat Oliver NP 3 [facility] [address] [place] [address] 12/06/2024 9:30 AM BEHAVIORAL CONSULTANT Appointment [facility] [address] [place] [address] [place] [address] [facility] [address]. [address] [place] [address] 03/02/2025 3:20 PM CDT Office Visit [facility] Family & Internal Medicine - [address] [phone] [place] [address] [facility] Darlene. [address] [place] [phone] documented as of this encounter Visit Diagnoses Diagnosis DURAN (generalized anxiety disorder)- Primary Generalized anxiety disorder Anxiety Anxiety state, unspecified Recurrent major depressive disorder, in partial remission ([facility]) documented in this encounter Additional Health Concerns Assessment Noted Time PHQ-9 Depression Total Score: 4 05/01/20 19 3:05 PM CDT documented as of this encounter Care Teams Chief Nurse Executive Relationship Specialty Start Date End Date Jaspreet Madsen MD PCP - General INTERNAL MEDICINE 11/30/18 02/18/23 documented as of this encounter
--- OUTSIDE RECORDS SUMMARY | 2024-11-13 17:54 | XMS_ITS | Encounter Summary ---
Author Organization [facility] Address [address] [place] [address]. [place], [place] [address] [place] [address] Care Team Providers Care Art Historian Name Role Phone Jaspreet Pearl MD Primary Care Provider Felipe rangel Encounter Details Date Type Department Care Team (Late st Contact Info) Description 08/02/2019 Orders Only [facility] Family & Internal Medicine [address] [address] Meredith Wilde, DAISY Social History [...] Master's degree (e.g., MA, MS, Howard, MEd, KELLER MACHINE OPERATOR, KEKE) 12/21/2018 Comments No Sex [...] st Contact Info) Description 11/14/2024 8:00 AM EXTRUSION OPERATOR Office Visit [facility] Multispecialty Care - [facility] [address], [address] [place] [address] Montserrat Oliver NP 3 Health system [address] [place] [address] 12/06/2024 9:30 AM EXTRUSION OPERATOR Appointment [facility] Open MRI [address] [facility] [place] [address] [place] [address] [place] [phone] 03/02/2025 3:20 PM CDT Office Visit [facility] Family & Internal Medicine - [address] [phone] [place] [address] [address] [place] [address] documented as of this encounter Visit Diagnoses Not on filedocumented in this encounter Additional Health Concerns Assessment Noted Time PHQ-9 Depression Total Score: 4 05/01/20 19 3:05 PM CDT documented as of this encounter Care Teams Art Historian Relationship Specialty Start Date End Date Jaspreet Pearl MD PCP - General INTERNAL MEDICINE 11/30/18 02/18/23 documented as of this encounter
--- OUTSIDE RECORDS SUMMARY | 2024-11-13 17:54 | XMS_ITS | Encounter Summary ---
Author Organization [facility] Address [address] [place] [address]. [place] [address] [place] [address] Care Team Providers Care Brewing Technician Name Role Phone Jaspreet Pearl MD [...] Master's degree (e.g., MA, MS, Howard, MEd, ICER MACHINE, KEKE) 12/21/2018 Comments No Sex and Gender [...] (Late Contact Info) Description 11/14/2024 8:00 AM MICROBIOLOGY TECHNOLOGIST Office Visit [facility] Multispecialty Care - [facility] 3 [facility], [address] [place] [address] Montserrat Oliver, DOREEN [address] [facility] [place] [address] 12/06/2024 9:30 AM MICROBIOLOGY TECHNOLOGIST Appointment [facility] Open MRI [address] [facility] [place] [address] [place] [address] [place] [address] 03/02/2025 3:20 PM CDT Office Visit [facility] Family & Internal Medicine - [address] [phone] [place] [address] [facility] [address] [place] [address] documented as of this encounter Visit Diagnoses Not on filedocumented in this encounter Additional Health Concerns Assessment Noted Time PHQ-9 Depression Total Score: 4 05/01/20 19 3:05 PM CDT documented as of this encounter Care Teams Brewing Technician Relationship Specialty Start Date End Date Jaspreet Pearl MD PCP - General INTERNAL MEDICINE 11/30/18 02/18/23 documented as of this encounter
--- OUTSIDE RECORDS SUMMARY | 2024-11-13 17:54 | XMS_ITS | Encounter Summary ---
Author Organization [facility] Address [address] [place] [address]. [place], [place] [address] [place] [address] Care Team Providers Care Casing Machine Operator Name Role Phone Jaspreet Madsen MD Primary Care Provider U juan carlos Reason for Visit * Reason Comments GERD 3 mo ck IBS Arthritis Encounter Details Date Type Department Care Team (Late st Contact Info) Description 11/06/2019 10:20 AM INDUCTION HEAT TREATER Office Visit [facility] Family & Internal Medicine [address] [address] Jaspreet Madsen MD GERD (3 [...] Master's degree (e.g., MA, MS, Howard, MEd, TAPE FOLDING MACHINE OPERATOR, KEKE) 12/21/2018 Comments No Sex [...] Comments Blood Pressure 100/64 11/06/2019 10:22 AM INDUCTION HEAT TREATER Pulse 78 11/06/2019 10:22 AM INDUCTION HEAT TREATER Temperature 36.4 ??C (97.6 ??F) 11/06/2019 1 0:22 AM INDUCTION HEAT TREATER Respiratory Rate 16 11/06/2019 10:2 2 AM INDUCTION HEAT TREATER Oxygen Saturation 98% 11/06/2019 10: 22 AM INDUCTION HEAT TREATER Inhaled Oxygen Concentration - - Weight 77.9 kg (171 lb 12.8 oz) 019 10:22 AM INDUCTION HEAT TREATER Height 175.3 cm (5' 9 ) 11/06/2019 10:2 2 AM INDUCTION HEAT TREATER Body Mass Index 25.37 11/06/2019 10:22 AM INDUCTION HEAT TREATER documented in this encounter Progress Notes * [...] new morning office visit and Mrs. [facility] 54-year-old lady with a history of severe [...] twice a week., Disp: , Rfl: ??? QDP-WHY-Qjzamor E (OMEGA-3 COMPLEX) 192-251-11 MG-MG-UNIT Cap, Take [...] (two) times daily., Disp: , Rfl: ??? PJHLAWQB-MHCCGUJDN-ZZOQGOOJANIFIZ otic solution, , Disp: , Rfl: ??? [...] Master's degree (e.g., MA, MS, Howard, MEd, TAPE FOLDING MACHINE OPERATOR, KEKE) Occupational History ??? Occupation: [...] file Gets together: Not on file Attends jewish service: Not on file Active member of [...] Recurrent major depressive disorder, in partial remission ([facility]) F33.41 296.35 RECURRENT MAJOR DEPRESSION IN [...] ??? estradiol 0.1 MG/GM vaginal cream ??? NDPJHTMD-MQGJEWJAL-HVBERSDYLPWISQ otic solution ??? valACYclovir 1 g tablet Follow up FU 3 MONTHS JASPREET MADSEN MD 11/06/2019 10:46 AM CTION HEAT TREATER documented in this encounter Plan of Treatment Upcoming Encounters Date Type Department Care Team (Late st Contact Info) Description 11/14/2024 8:00 AM INDUCTION HEAT TREATER Office Visit [facility] Multispecialty Care - [facility] 3 [facility], [address] [place] [phone] Montserrat Oliver NP 3 [facility] [address] [place] [address] 12/06/2024 9:30 AM INDUCTION HEAT TREATER Appointment [facility] Open MRI [address] [place] [address] [place] [address] [address] [place] [address] 03/02/2025 3:20 PM CDT Office Visit [facility] Family & Internal Medicine [facility] [address] [place] [address] [place] [address] [facility]. [address] [place] [address] documented as of this encounter Visit Diagnoses Diagnosis DURAN (generalized anxiety disorder)- Primary Generalized anxiety disorder Recurrent major depressive disorder, in partial remission (CMS/HCC) documented in this encounter Additional Health Concerns Assessment Noted Time PHQ-9 Depression Total Score: 4 05/01/20 19 3:05 PM CDT documented as of this encounter Care Teams Casing Machine Operator Relationship Specialty Start Date End Date Jaspreet Madsen MD PCP - General INTERNAL MEDICINE 11/30/18 02/18/23 documented as of this encounter
--- OUTSIDE RECORDS SUMMARY | 2024-11-13 17:54 | XMS_ITS | Encounter Summary ---
Author Organization [facility] Address [address] [place] [address]. [place] [address] [place] [address] Care Team Providers Care Search Optimization Analyst Name Role Phone Jaspreet Pearl MD [...] Master's degree (e.g., MA, MS, Howard, MEd, SOAP CHIPPER, KEKE) 12/21/2018 Comments No Sex and [...] (Late Contact Info) Description 11/14/2024 8:00 AM ENGRAVER AUTOMATIC Office Visit [facility] Multispecialty Care - [facility] 3 [facility], [address] [place] [address] Montserrat Oliver NP 3 [facility] [address] [place] [address] 12/06/2024 9:30 AM ENGRAVER AUTOMATIC Appointment [facility] Open MRI [address] [facility] [place] [address] [place] [address] [facility] [place] [address] 03/02/2025 3:20 PM CDT Office Visit [facility] Family & Internal Medicine - [address] [phone] [place] [address] [facility]. [address] [place] [address] documented as of this encounter Visit Diagnoses Not on filedocumented in this encounter Additional Health Concerns Assessment Noted Time PHQ-9 Depression Total Score: 4 05/01/20 19 3:05 PM CDT documented as of this encounter Care Teams Search Optimization Analyst Relationship Specialty Start Date End Date Jaspreet Pearl MD PCP - General INTERNAL MEDICINE 11/30/18 02/18/23 documented as of this encounter
--- OUTSIDE RECORDS SUMMARY | 2024-11-13 17:54 | XMS_ITS | Encounter Summary ---
Author Organization [facility] Address [address] [place] [address]. [place], [place] [address] [place] [address] Care Team Providers Care Aws Architect Name Role Phone Jaspreet Madsen MD Primary Care Provider U raynaailable Reason for Visit * Reason Comments Consult For Colonoscopy pt is here for a consult, IBS flare up * Consultation (Routine) - Closed Specialty Diagnoses / Procedures Referred By Chalino bazan Referred To Contact GASTROENTEROLOGY Diagnoses Encounter for screening colonoscopy Jaspreet Madsen MD Kim, Peter S, MD [address] [address] Phone: tel: fax: Referral ID Status Reason Start Date Expiration Date Visits Re quested Visits Authorized [id number] Closed 11/13/2020 12/14/2021 99 99 Encounter Details Date Type Department Care Team (Latest Contact Info) Description 01/31/2021 1:00 PM CDT Office Visit [facility] [address] [phone] Niall Matute MD 3 [facility] [address] [place], [place] [address] Ana Colbert NP 3 [facility]. [address] [place], [place] [address] Consult For Colonoscopy (pt is here for [...] Master's degree (e.g., MA, MS, Howard, MEd, STOCK PLAN ADMINISTRATOR, KEKE) 12/21/2018 Comments No Sex and [...] loss. No nausea, vomiting, swallowing issues with rice drier operator foods like pill, nuts or pretzel with [...] Gastrointestinal: Refer to HPI. Genitourinary: Going to nurse aide evaluator for dyspurenia and is on estrogen cream. [...] daily., Disp: 30 tablet, Rfl: 2 ??? ADS-ICL-Ubdwfyw E (OMEGA-3 COMPLEX) 192-251-11 MG-MG-UNIT Cap, Take [...] st Contact Info) Description 11/14/2024 8:00 AM STRAPPER OPERATOR Office Visit [facility] Multispecialty Care - [address], [address] [place] [phone] Montserrat Oliver NP [address] [place] [address] [place] [address] 12/06/2024 9:30 AM STRAPPER OPERATOR Appointment [facility] MRI [address] [place] [address] [place] [address] [facility]. [address] [place] [address] 03/02/2025 3:20 PM CDT Office Visit [facility] Family & Internal Medicine - [address] [phone] [place] [address] [facility]. [address] [place] [address] documented as of this encounter Visit Diagnoses Diagnosis Pharyngoesophageal dysphagia- Primary Dysphagia, pharyngoesophageal phase Heartburn Encounter for screening colonoscopy Special screening for malignant neoplasms, colon Constipation, unspecified constipation type documented in this encounter Additional Health Concerns Assessment Noted Time PHQ-9 Depression Total Score: 4 05/01/20 19 3:05 PM CDT documented as of this encounter Care Teams Aws Architect Relationship Specialty Start Date End Date Jaspreet Madsen MD PCP - General INTERNAL MEDICINE 11/30/18 02/18/23 documented as of this encounter
--- OUTSIDE RECORDS SUMMARY | 2024-11-13 17:54 | XMS_ITS | Encounter Summary ---
Author Organization [facility] Address [address] [place] [address]. [place], [place] [address] [place] [address] Care Team Providers Care Seed Yeast Operator Name Role Phone Jaspreet Madsen MD Primary Care Provider U juan carlos Reason for Visit * Reason Comments GERD med check Anxiety Depression Encounter Details Date Type Department Care Team (Late st Contact Info) Description 11/20/2020 3:40 PM MORNING SHOW HOST Telemedicine [facility] Family & Internal Medicine [address] [phone] Jaspreet Madsen MD GERD (med [...] Master's degree (e.g., MA, MS, Howard, MEd, REFRIGERATOR MOVER, KEKE) 12/21/2018 Comments No Sex and Gender [...] COVID-19? No / Unsure 11/19/2020 5:38 PM MORNING SHOW HOST documented as of this encounter Last Filed Vital Signs Vital Sign Reading Time Taken Comments Blood Pressure - - Pulse - - Temperature 36.6 ??C (97.9 ??F) 11/20/2020 3:03 PM CS T Respiratory Rate - - Oxygen Saturation 99% 11/20/2020 3:03 PM MORNING SHOW HOST Inhaled Oxygen Concentration - - Weight 78.9 kg (174 lb) 11/20/2020 3:03 PM MORNING SHOW HOST Height 172.7 cm (5' 8 ) 11/20/2020 3:03 PM MORNING SHOW HOST Body Mass Index 26.46 11/20/2020 3:03 PM MORNING SHOW HOST documented in this encounter Progress Notes * Jaspreet Madsen MD - 11/20/2020 3:40 PM CST Reason for Visit: GERD (med check ), Anxiety, and Depression I introduced and identified myself, received verbal consent from the patient to proceed with this video visit and made the patient aware that the same confidentiality and health information assistant practices apply. The patient joined the video [...] some of the medications she sees the inventory manager and everything is stable she takes her [...] daily., Disp: 30 tablet, Rfl: 2 ??? 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 Orders Placed This Encounter ??? triamcinolone 0.1 % ointment ??? citalopram 10 MG tablet ??? busPIRone 15 MG tablet Follow up FU 3 MONTHS JASPREET MADSEN MD 11/20/2020 4:14 PM ING SHOW HOST ING SHOW HOST documented in this encounter Plan of Treatment Upcoming Encounters Date Type Department Care Team (Late st Contact Info) Description 11/14/2024 8:00 AM MORNING SHOW HOST Office Visit [facility] - [facility] [address] [place] [address] Montserrat Oliver NP 3 [facility] [address] [place] [address] 12/06/2024 9:30 AM MORNING SHOW HOST [facility] [address] [facility] [place] [address] [place] [address] [place] [phone] 03/02/2025 3:20 PM CDT Office Visit [facility] Family & Internal Medicine - [address] [phone] [place] [address] [place] [phone] documented as of this encounter Visit Diagnoses Diagnosis DURAN (generalized anxiety disorder)- Primary Generalized anxiety disorder Polyarthritis Unspecified polyarthropathy or polyarthritis, site unspecified Recurrent major depressive disorder, in partial remission ([facility]) Primary insomnia Persistent disorder of initiating or maintaining sleep documented in this encounter Additional Health Concerns Assessment Noted Time PHQ-9 Depression Total Score: 4 05/01/20 19 3:05 PM CDT documented as of this encounter Care Teams Seed Yeast Operator Relationship Specialty Start Date End Date Jaspreet Madsen MD PCP - General INTERNAL MEDICINE 11/30/18 02/18/23 documented as of this encounter
--- OUTSIDE RECORDS SUMMARY | 2024-11-13 17:54 | XMS_ITS | Encounter Summary ---
Author Organization [facility] Address [address] [place] [address]. [place] [address] [place] [address] Care Team Providers Care Paint Mixer Machine Name Role Phone Jaspreet Madsen MD Primary Care Provider U juan carlos Reason for Visit * Reason Comments Cough started at the end o july and getting worse since Runny Nose Mouth/Lip Problem palet is very itchy- has seen her Heel Seat Fitter Machine recently- takes Arabella every day Encounter Details Date Type Department Care Team (Late st Contact Info) Description 09/02/2020 4:00 PM CDT Telemedicine [facility] Family & Internal Medicine [address] [phone] Felicia Yang, ELEMENTARY TUTOR [address] [address] Cough (started at the end of July and getting worse since); Runny Nose; Mouth/Lip Problem (palet is very itchy- has seen her Heel Seat Fitter Machine recently- takes Arabella every day ) Social [...] Master's degree (e.g., MA, MS, Howard, MEd, IRON WORKER APPRENTICE, KEKE) 12/21/2018 Comments No Sex and [...] (palet is very itchy- has seen her Heel Seat Fitter Machine recently- takes Arabella every day ) History [...] that the same confidentiality and information systems coordinator practices apply. The patient joined the video [...] DAILY, Disp: 30 tablet, Rfl: 2 ??? 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 [facility] is in agreement toand verbalized understanding [...] st Contact Info) Description 11/14/2024 8:00 AM FLASH DESIGNER Office Visit [facility] Multispecialty Care - [facility] 3 [facility], [address] [place] [address] Montserrat Oliver NP 3 [facility] [address] [place] [address] 12/06/2024 9:30 AM FLASH DESIGNER Appointment [facility] Open MRI [address] [place] [address] [place] [address] [facility]. [address] [place] [address] 03/02/2025 3:20 PM CDT Office Visit [facility] Family & Internal Medicine - [address] [phone] [place] [address] [facility]. [address] [place] [address] documented as of this encounter Visit Diagnoses Diagnosis Cough- Primary documented in this encounter Additional Health Concerns Assessment Noted Time PHQ-9 Depression Total Score: 4 05/01/20 19 3:05 PM CDT documented as of this encounter Care Teams Paint Mixer Machine Relationship Specialty Start Date End Date Jaspreet Madsen MD PCP - General INTERNAL MEDICINE 11/30/18 02/18/23 documented as of this encounter
--- OUTSIDE RECORDS SUMMARY | 2024-11-13 17:54 | XMS_ITS | Encounter Summary ---
Author Organization [facility] Address [address] [place] [address]. [place], [place] [phone] [place] [address] Care Team Providers Care Parking Enforcer Name Role Phone Jaspreet Madsen MD Primary Care Provider U raynaailable Reason for Visit * Reason Comments Hoarseness onset- yest Sore Throat Cough Post Nasal Drainage Blisters Encounter Details Date Type Department Care Team (Late st Contact Info) Description 10/11/2019 1:20 PM DIVER PUMPER Office Visit [facility] Family & Internal Medicine [address] [address] Jaspreet Madsen MD Hoarseness (onset- [...] Master's degree (e.g., MA, MS, Howard, MEd, GM, KEKE) 12/21/2018 Comments No Sex and Gender [...] Comments Blood Pressure 112/78 10/11/2019 1:18 PM DIVER PUMPER Pulse 83 10/11/2019 1:18 PM DIVER PUMPER Temperature 37 ??C (98.6 ??F) 10/11/2019 1:18 PM DIVER PUMPER Respiratory Rate 18 10/11/2019 1:18 PM DIVER PUMPER Oxygen Saturation 98% 10/11/2019 1:18 PM DIVER PUMPER Inhaled Oxygen Concentration - - Weight 76.3 kg (168 lb 3.2 oz) 10/11/2019 1:18 P M DIVER PUMPER Height 175.3 cm (5' 9 ) 10/11/2019 1:18 PM DIVER PUMPER Body Mass Index 24.84 10/11/2019 1:18 PM DIVER PUMPER documented in this encounter Patient Instructions * Patient Instructions* Jaspreet Madsen MD - 10/11/2019 1:20 PM DIVER PUMPER Thank you R PUMPER documented in this encounter Progress Notes * [...] twice a week., Disp: , Rfl: ??? 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 azithromycin (ZITHROMAX) 250 MG tablet Follow up FU PRN JASPREET MADSEN MD 10/11/2019 1:43 PM R PUMPER documented in this encounter Plan of Treatment Upcoming Encounters Date Type Department Care Team (Late st Contact Info) Description 11/14/2024 8:00 AM DIVER PUMPER Office Visit [facility] Multispecialty Care - [facility] 3 [facility], [address] [place] [phone] Montserrat Oliver NP 3 [facility] [address] [place] [address] 12/06/2024 9:30 AM DIVER PUMPER Appointment [facility] Open MRI [address] [place] [address] [place] [address] [address] [place] [address] 03/02/2025 3:20 PM CDT Office Visit [facility] Family & Internal Medicine [facility] [address] [place] [address] [place] [address] [facility]. [address] [place] [address] documented as of this encounter Visit Diagnoses Diagnosis Upper respiratory tract infection, unspecified type- Primary Recurrent major depressive disorder, in partial remission (CMS/HCC) DURAN (generalized anxiety disorder) Generalized anxiety disorder documented in this encounter Additional Health Concerns Assessment Noted Time PHQ-9 Depression Total Score: 4 05/01/20 19 3:05 PM CDT documented as of this encounter Care Teams Parking Enforcer Relationship Specialty Start Date End Date Jaspreet Madsen MD PCP - General INTERNAL MEDICINE 11/30/18 02/18/23 documented as of this encounter
--- OUTSIDE RECORDS SUMMARY | 2024-11-13 17:54 | XMS_ITS | Encounter Summary ---
Author Organization [facility] Address [address] [place] [address]. [place] [address] [place] [address] Care Team Providers Care Carpet Binder Name Role Phone Jaspreet Pearl MD Primary [...] Master's degree (e.g., MA, MS, Howard, MEd, TECHNICAL HEALTHCARE CONSULTANT, KEKE) 12/21/2018 Comments No Sex and [...] ( Contact Info) Description 11/14/2024 8:00 AM PRODUCT ENGINEER Office Visit [facility] Multispecialty Care - [facility] 3 [facility], [address] [place] [address] Montserrat Oliver NP 3 [facility] [address] [place] [address] 12/06/2024 9:30 AM PRODUCT ENGINEER Appointment [facility] Open MRI [address] [place] [address] [place] [address] [facility]. [address] [place] [address] 03/02/2025 3:20 PM CDT Office Visit [facility] Family & Internal Medicine - [address] [phone] [place] [address] [facility]. [address] [place] [phone] documented as of this encounter Visit Diagnoses Not on filedocumented in this encounter Additional Health Concerns Assessment Noted Time PHQ-9 Depression Total Score: 4 05/01/20 19 3:05 PM CDT documented as of this encounter Care Teams Carpet Binder Relationship Specialty Start Date End Date Jaspreet Pearl MD PCP - General INTERNAL MEDICINE 11/30/18 02/18/23 documented as of this encounter
--- OUTSIDE RECORDS SUMMARY | 2024-11-13 17:54 | XMS_ITS | Encounter Summary ---
Author Organization [facility] Address [address] [place] [address]. [place] [address] [place] [address] Care Team Providers Care Tile Mechanic Helper Name Role Phone Jaspreet Pearl MD [...] CDT - 06/18/2019 12:33 PM CDT Emergency [facility] Emergency Room [id number] [place] [address] Chiquita Colbert, PA [address] [place] [address] Sore Throat (PT AMB TO ER WITH [...] Master's degree (e.g., MA, MS, Howard, MEd, CATALOGUE COMPILER, KEKE) 12/21/2018 Comments No Sex and Gender [...] Everywhere. * Sore Throat Discharge Instructions, Adult (Samoan) * Viral Pharyngitis (Samoan) documented in this encounter Medications at Time [...] 0.5 g vaginally twice a week. 0 RBT-HEC-Xrxxhrf E 192-251-11 MG-MG-UNIT Cap Take 1 capsule [...] g vaginally twice a week. Doc Abstract WZT-XHK-Lmiduxd E (OMEGA-3 COMPLEX) 192-251-11 MG-MG-UNIT Cap Take [...] MOUTH DAILY IN THE EVENING 04/06/19 Jaspreet eParl MD multivitamin tablet Take 2 tablets by [...] List Disposition: Discharge Follow-[place]: [place] [id number] [facility] [id number] TANYA TRAN 06/18/2019 TANYA Tran 06/18/19 1214 Cosigned by Jenise Harrison MD at 06/19/2019 7:16 PM CDT documented in this encounter Plan of Treatment Upcoming Encounters Date Type Department Care Team (Late st Contact Info) Description 11/14/2024 8:00 AM SYNCHRO ASSEMBLER Office Visit [facility] Multispecialty Care - [facility] 3 [facility], [address] [place] [phone] Montserrat Oliver NP 3 [facility] [address] [place] [address] 12/06/2024 9:30 AM SYNCHRO ASSEMBLER Appointment [facility] Open MRI [address] [place] [address] [place] [address] [facility]. [address] [place] [address] 03/02/2025 3:20 PM CDT Office Visit [facility] Family & Internal Medicine - [address] [address] [place] [address] [facility]. [address] [place] [address] documented as of this encounter Procedures Procedure Name Priority Date/Time Associated Diagnosis Comments STREP A, DNA STAT 06/18/2019 11:25 AM CDT RAPID STREP A STAT 06/18/2019 11:25 AM CDT documented in this encounter Results * STREP A, DNA (06/18/2019 11:25 AM CDT) Pathologist [facility] STREP A MOLECULAR NEGATIVE NEGATIVE 06/18/2019 1:03 PM CDT [facility] Comment: NOTE: A negative result is highly sensitive for S. pyogenes in throat specimens. This test does not distinguish between viable and non-viable organisms. If the result is negative and symptoms persist, additional testing is recommended to rule out other pathogens. 06/18/2019 11:2 5 AM CDT us Chiquita MARTÍNEZ MICROBIOLOGY - GENERAL ORDERA BLES Final Result [facility] [address] [place] [address], [place] [phone] * RAPID STREP A (06/18/2019 11:25 AM CDT) RAPID STREP TEST NEGATIVE NEGATIVE 06/18/2019 11:59 AM CDT [facility] STRUCTURE OF ANTERIOR PORTION OF NECK / Unknown 06/18/2019 11:25 AM CDT us Chiquita Colbert PA MICROBIOLOGY - GENERAL ORDERA BLES Final Result [facility] [address] [place] [address], [place] [phone] documented in this encounter Visit Diagnoses Diagnosis Pharyngitis- Primary Acute pharyngitis Tonsil stone Other chronic disease of tonsils and adenoids documented in this encounter Additional Health Concerns Assessment Noted Time PHQ-9 Depression Total Score: 4 05/01/20 19 3:05 PM CDT documented as of this encounter Care Teams Tile Mechanic Helper Relationship Specialty Start Date End Date Jaspreet Pearl MD PCP - General INTERNAL MEDICINE 11/30/18 02/18/23 documented as of this encounter
--- OUTSIDE RECORDS SUMMARY | 2024-11-13 17:54 | XMS_ITS | Encounter Summary ---
Author Organization [facility] Address [address] [place] [address]. [place], [place] [address] [place] [address] Care Team Providers Care Equity Director Name Role Phone Jaspreet Pearl MD Primary Care Provider U Kelsey Dey SPRAY UNIT FEEDER Primary Care Provider [phone] Dayanara Plaza MD Primary Care Provider [phone] Perez Cervantes MD Unavailable Adriana Ma MD Unavailable [phone] Encounter Details Date Type Department Care Team (Late st Contact Info) Description 09/19/2020 [employer] Message Enc [facility] Medical Group Family & Internal Medicine [address] [address] Jaspreet Pearl MD Medication Questions [...] Master's degree (e.g., MA, MS, Howard, MEd, OPERATIONS AND MAINTENANCE SUPERVISOR, KEKE) 12/21/2018 Comments No Sex and [...] CST MD aware and no other recommendations LOCATOR * Barb Vital RN - 09/20/2020 10:53 AM CST Printed and will ask MD LOCATOR documented in this encounter Plan of Treatment Upcoming Encounters Date Type Department Care Team (Late st Contact Info) Description 11/14/2024 8:00 AM SKIP LOCATOR Office Visit [facility] Mult[facility]pecialty Care - [facility] 3 [facility], [address] [place] [phone] Montserrat Oliver NP 3 [facility] [address] [place] [address] 12/06/2024 9:30 AM SKIP LOCATOR Appointment [facility] Open MRI [address] [place] [address] [place] [address] [facility]. [address] [place] [phone] 03/02/2025 3:20 PM CDT Office Visit [facility] Family & Internal Medicine - [address] [phone] [place] [address] [facility]. [address] [place] [address] documented as of this encounter Visit Diagnoses Not on filedocumented in this encounter Additional Health Concerns Infection Onset Date Last Indicated Resolved Time COVID-19 Rule Out 03/14/2021 03/14/2021 03/15/2021 1:26 PM CDT COVID-19 Rule Out 04/03/2024 04/03/2024 04/03/2024 11:38 AM CDT Assessment Noted Time PHQ-9 Depression Total Score: 4 05/01/20 19 3:05 PM CDT documented as of this encounter Care Teams Equity Director Relationship Specialty Start Date End Date Jaspreet Pearl MD PCP - General INTERNAL MEDICINE 11/30/18 02/18/23 Kelsey Kc, DOREEN [address] [place] [address] PCP - General Nurse Practitioner Family 02/19/23 02/28/23 [place] [address] [place] [address] PCP - General FAMILY PRACTICE 03/01/23 Perez Cervantes MD [address] [place] [phone] RHEUMATOLOGY 09/02/23 Adriana Ma MD [address] [place], [place] [phone] Referring Physician ALLERGY 09/02/23 documented as of this encounter
--- OUTSIDE RECORDS SUMMARY | 2024-11-13 17:54 | XMS_ITS | Encounter Summary ---
Author Organization [facility] Address [address] [place] [address]. [place] [address] [place] [address] Care Team Providers Care Territory Sales Professional Name Role Phone Jaspreet Pearl MD Primary Care Provider U navailable Reason for Referral * Surgical (Routine) - Closed Specialty Diagnoses / Procedures Referred By Chalino bazan Referred To Contact Diagnoses Pharyngoesophageal dysphagia Encounter for screening colonoscopy Procedures Case request operating room: COLONOSCOPY, EGD Niall Matute MD [address] [place] [address] [place] [address] Phone: tel: fax: Referral ID Status Reason Start Date Expiration Date Visits Re quested Visits Authorized [id number] Closed 02/06/2021 03/09/2022 1 1 Encounter Details Date Type Department Care Team (Late st Contact Info) Description 02/06/2021 Orders Only [facility] Multispecialty Care - [address] [place] [address] Niall Matute MD [address] [place] [address] [address] [place] [address] Social History Tobacco Use Types Packs/Day Years [...] Master's degree (e.g., MA, MS, Howard, MEd, HEALTH MANAGEMENT CONSULTANT, KEKE) 12/21/2018 Comments No Sex and [...] st Contact Info) Description 11/14/2024 8:00 AM TELEMARKETING REPRESENTATIVE Office Visit [facility] Medical [facility] Mult[facility]ialty Care - [facility] 3 [facility], [address] [place] [phone] Montserrat Oliver NP 3 [facility] [address] [place] [address] 12/06/2024 9:30 AM TELEMARKETING REPRESENTATIVE Appointment [facility] Open MRI [address] [place] [address] [place] [address] [facility] [address] [place] [address] 03/02/2025 3:20 PM CDT Office Visit [facility] Medical Group Family & Internal Medicine - [address] [place] [address] [place] [address] [facility]. [address] [place] [address] Scheduled Orders Name Type Priority Associated Diagnoses [...] documented as of this encounter Care Teams Territory Sales Professional Relationship Specialty Start Date End Date Jaspreet Pearl MD PCP - General INTERNAL MEDICINE 11/30/18 02/18/23 documented as of this encounter
--- OUTSIDE RECORDS SUMMARY | 2024-11-13 17:54 | XMS_ITS | Encounter Summary ---
Author Organization [facility] Address [address] [place] [address]. [place], [place] [address] [place] [address] Care Team Providers Care Sales Team Manager Name Role Phone Jaspreet Pearl MD Primary Care Provider Felipe rangel Reason for Visit * Reason Onset Date Comments Question 01/11/2020 Encounter Details Date Type Department Care Team (Late st Contact Info) Description 01/11/2020 Telephone [facility] Medical Group Family & Internal Medicine [address] [phone] Jaspreet Pearl MD Question Social [...] Master's degree (e.g., MA, MS, Howard, MEd, MASH PROCESSING OPERATOR, KEKE) 12/21/2018 Comments No Sex and [...] CST Patient here today for office visit ULE MAKER * Barb Vital RN - 01/11/2020 2:54 PM CST Message left to return call ULE MAKER * Geneva Tan PharmD - 01/11/2020 2:44 PM CST Okay to take Tylenol with current meds, but will need to discuss fever with PCP. ULE MAKER * AlysiaMary Briggs - 01/11/2020 12:47 PM CST Patient called and stated she is feeling worse today than she did yesterday. Stated her fever has gone up (102.1). She wanted to know if she can take Tylenol with her medications and if the fever is normal for a sinus infection. Please Advise. C/B# [phone] ULE MAKER documented in this encounter Plan of Treatment Upcoming Encounters Date Type Department Care Team (Late st Contact Info) Description 11/14/2024 8:00 AM CAPSULE MAKER Office Visit [facility] Multispecialty Care - [facility] 3 [facility], Suite [facility] [place] [address] Montserrat Oliver NP 3 [facility] [address] [place] [address] 12/06/2024 9:30 AM CAPSULE MAKER Appointment [facility] Open [facility] [address] [place] [address] [place] [address] [facility] [address] [place] [address] 03/02/2025 3:20 PM CDT Office Visit [facility] Medical Group Family & Internal Medicine - [place] [address] [place] [phone] [place] [address] [facility] [address] [place] [address] documented as of this encounter Visit Diagnoses Not on filedocumented in this encounter Additional Health Concerns Assessment Noted Time PHQ-9 Depression Total Score: 4 05/01/20 19 3:05 PM CDT documented as of this encounter Care Teams Sales Team Manager Relationship Specialty Start Date End Date Jaspreet Pearl MD PCP - General INTERNAL MEDICINE 11/30/18 02/18/23 documented as of this encounter
--- OUTSIDE RECORDS SUMMARY | 2024-11-13 17:54 | XMS_ITS | Encounter Summary ---
Author Organization [facility] Address [address] [place] [address]. [place] [address] [place] [address] Care Team Providers Care Mushroom Cutter Name Role Phone Jaspreet Pearl MD [...] Master's degree (e.g., MA, MS, Howard, MEd, STRINGER UP SOLDERING MACHINE, KEKE) 12/21/2018 Comments No Sex and [...] ( Contact Info) Description 11/14/2024 8:00 AM PROCESSING ANALYST Office Visit [facility] Multispecialty Care - [facility] 3 [facility], [address] [place] [address] Montserrat Oliver NP 3 [facility] [address] [place] [address] 12/06/2024 9:30 AM PROCESSING ANALYST Appointment [facility] Open MRI [address] [facility] [place] [address] [place] [address] [facility]. [address] [place] [address] 03/02/2025 3:20 PM CDT Office Visit [facility] Family & Internal Medicine - [address] [phone] [place] [address] [facility]. [address] [place] [phone] documented as of this encounter Visit Diagnoses Not on filedocumented in this encounter Additional Health Concerns Assessment Noted Time PHQ-9 Depression Total Score: 4 05/01/20 19 3:05 PM CDT documented as of this encounter Care Teams Mushroom Cutter Relationship Specialty Start Date End Date Jaspreet Pearl MD PCP - General INTERNAL MEDICINE 11/30/18 02/18/23 documented as of this encounter
--- OUTSIDE RECORDS SUMMARY | 2024-11-13 17:54 | XMS_ITS | Encounter Summary ---
Author Organization [facility] Address [address] [place] [address]. [place] [address] [place] [address] Care Team Providers Care Mandrel Press Hand Name Role Phone Jaspreet Pearl MD [...] Master's degree (e.g., MA, MS, Howard, MEd, LOAN TELLER, KEKE) 12/21/2018 Comments No Sex and Gender [...] COVID-19? No / Unsure 11/19/2020 5:38 PM BENCH HAND MACHINE documented as of this encounter Plan of Treatment Upcoming Encounters Date Type Department Care Team (Late st Contact Info) Description 11/14/2024 8:00 AM BENCH HAND MACHINE Office Visit [facility] Multispecialty Care - [facility] 3 [facility], [address] [place] [address] Montserrat Oliver, DOREEN 3 [facility] [address] [place] [address] 12/06/2024 9:30 AM BENCH HAND MACHINE Appointment [facility] Open MRI [address] [facility] [address] [place] [address] [facility]. [address] [place] [address] 03/02/2025 3:20 PM CDT Office Visit [facility] Family & Internal Medicine - [address] [phone] [place] [address] [facility]. [address] [place] [address] documented as of this encounter Visit Diagnoses Not on filedocumented in this encounter Additional Health Concerns Assessment Noted Time PHQ-9 Depression Total Score: 4 05/01/20 19 3:05 PM CDT documented as of this encounter Care Teams Mandrel Press Hand Relationship Specialty Start Date End Date Jaspreet Pearl MD PCP - General INTERNAL MEDICINE 11/30/18 02/18/23 documented as of this encounter
--- OUTSIDE RECORDS SUMMARY | 2024-11-13 17:54 | XMS_ITS | Encounter Summary ---
Author Organization [facility] Address [address] [place] [address]. [place], [place] [address] [place] [address] Care Team Providers Care Cash Posting Clerk Name Role Phone Jaspreet Pearl MD Primary Care Provider U Kelsey Dey NP Primary Care Provider [phone] Dayanara Plaza MD Primary Care Provider [phone] Perez Cervantes MD Unavailable Adriana Ma MD Unavailable [phone] Encounter Details Date Type Department Care Team (Late st Contact Info) Description 05/20/2020 [employer] Message Enc [facility] Medical Group Family & Internal Medicine [address] [address] Jaspreet Pearl MD Other Social [...] Master's degree (e.g., MA, MS, Howard, MEd, ECOLOGY TEACHER, KEKE) 12/21/2018 Comments No Sex and Gender [...] Contact Info) Description 11/14/2024 8:00 AM LICENSED DISPENSING OPTICIAN Office Visit [facility] Multispecialty Care - [address], [address] [place] [phone] Montserrat Oliver NP 3 [facility] [address] [place] [address] 12/06/2024 9:30 AM LICENSED DISPENSING OPTICIAN Appointment [facility] MRI [address] [place] [address] [place] [address] [facility]. [address] [place] [address] 03/02/2025 3:20 PM CDT Office Visit [facility] Family & Internal Medicine - [address] [phone] [place] [address] [facility] [employer] [facility]. [address] [place] [address] documented as of this encounter Visit Diagnoses Not on filedocumented in this encounter Additional Health Concerns Infection Onset Date Last Indicated Resolved Time COVID-19 Rule Out 03/14/2021 03/14/2021 03/15/2021 1:26 PM CDT COVID-19 Rule Out 04/03/2024 04/03/2024 04/03/2024 11:38 AM CDT Assessment Noted Time PHQ-9 Depression Total Score: 4 05/01/20 19 3:05 PM CDT documented as of this encounter Care Teams Cash Posting Clerk Relationship Specialty Start Date End Date Jaspreet Pearl MD PCP - General INTERNAL MEDICINE 11/30/18 02/18/23 Kelsey Kc, EDUCATIONAL ADVISER [address] [place] [address] PCP - General Nurse Practitioner Family 02/19/23 02/28/23 [place] [address] [facility] [place] [address] PCP - General FAMILY PRACTICE 03/01/23 Perez Cervantes MD [address] [place] [phone] RHEUMATOLOGY 09/02/23 Adriana Ma MD 325 [place] [address] Referring Physician ALLERGY 09/02/23 documented as of this encounter
--- OUTSIDE RECORDS SUMMARY | 2024-11-13 17:54 | XMS_ITS | Encounter Summary ---
Author Organization [facility] Address [address] [place] [address]. [place] [address] [place] [address] Care Team Providers Care Portable Router Operator Name Role Phone Jaspreet Pearl MD [...] Master's degree (e.g., MA, MS, Howard, MEd, AMUSEMENT PARK ENTERTAINER, KEKE) 12/21/2018 Comments No Sex and Gender [...] (Late Contact Info) Description 11/14/2024 8:00 AM INFRASTRUCTURE ADMINISTRATOR Office Visit [facility] Multispecialty Care - [facility] 3 [facility], [address] [place] [address] Montserrat Oliver NP 3 [facility] [address] [place] [address] 12/06/2024 9:30 AM INFRASTRUCTURE ADMINISTRATOR Appointment [facility] Open MRI [address] [facility] [place] [address] [place] [address] [facility] [address] [place] [address] 03/02/2025 3:20 PM CDT Office Visit [facility] Family & Internal Medicine - [address] [phone] [place] [address] [facility]. [address] [place] [address] documented as of this encounter Visit Diagnoses Not on filedocumented in this encounter Additional Health Concerns Assessment Noted Time PHQ-9 Depression Total Score: 4 05/01/20 19 3:05 PM CDT documented as of this encounter Care Teams Portable Router Operator Relationship Specialty Start Date End Date Jaspreet Pearl MD PCP - General INTERNAL MEDICINE 11/30/18 02/18/23 documented as of this encounter
--- OUTSIDE RECORDS SUMMARY | 2024-11-13 17:54 | XMS_ITS | Encounter Summary ---
Author Organization [facility] Address [address] [place] [address]. [place], [place] [address] [place] [address] Care Team Providers Care Parachute Harness Rigger Name Role Phone Jaspreet Pearl MD Primary Care Provider U Kelsey Dey NP Primary Care Provider [phone] Dayanara Plaza MD Primary Care Provider [phone] Perez Cervantes MD Unavailable Adriana Ma MD Unavailable [phone] Encounter Details Date Type Department Care Team (Late st Contact Info) Description 11/25/[email or web address] [facility] Family & Internal Medicine [address] [address] Jaspreet Pearl MD RE: Referral [...] Master's degree (e.g., MA, MS, Howard, MEd, MOUNTING MACHINE OPERATOR, KEKE) 12/21/2018 Comments No Sex [...] COVID-19? No / Unsure 11/19/2020 5:38 PM NETWORK ADMINISTRATOR documented as of this encounter Plan of Treatment Upcoming Encounters Date Type Department Care Team (Late st Contact Info) Description 11/14/2024 8:00 AM NETWORK ADMINISTRATOR Office Visit [facility] Multispecialty Care - [address], [address] [place] [phone] Montserrat Oliver NP 3 [facility] [address] [place] [address] 12/06/2024 9:30 AM NETWORK ADMINISTRATOR Appointment [facility] Open MRI [address] [place] [address] [place] [address] [facility]. [address] [place] [address] 03/02/2025 3:20 PM CDT Office Visit [facility] Family & Internal Medicine - [address] [phone] [place] [address] [facility]. [address] [place] [address] documented as of this encounter Visit Diagnoses Not on filedocumented in this encounter Additional Health Concerns Infection Onset Date Last Indicated Resolved Time COVID-19 Rule Out 03/14/2021 03/14/2021 03/15/2021 1:26 PM CDT COVID-19 Rule Out 04/03/2024 04/03/2024 04/03/2024 11:38 AM CDT Assessment Noted Time PHQ-9 Depression Total Score: 4 05/01/20 19 3:05 PM CDT documented as of this encounter Care Teams Parachute Harness Rigger Relationship Specialty Start Date End Date Jaspreet Pearl MD PCP - General INTERNAL MEDICINE 11/30/18 02/18/23 Kelsey Kc, RESIDENTIAL TEAM LEADER [address] [address] [place] [address] PCP - General Nurse Practitioner Family 02/19/23 02/28/23 [place] [address] [employer] [place] [address] PCP - General FAMILY PRACTICE 03/01/23 Perez Cervantes MD [address] [phone] RHEUMATOLOGY 09/02/23 Adriana Ma MD [address] [place] [address] Referring Physician ALLERGY 09/02/23 documented as of this encounter
--- OUTSIDE RECORDS SUMMARY | 2024-11-13 17:54 | XMS_ITS | Encounter Summary ---
Author Organization [facility] Address [address] [place] [address]. [place] [address] [place] [address] Care Team Providers Care Hadoop Developer Name Role Phone Jaspreet Pearl MD [...] Master's degree (e.g., MA, MS, Howard, MEd, DIE PRESSER, KEKE) 12/21/2018 Comments No Sex and [...] COVID-19? No / Unsure 11/19/2020 5:38 PM MATERIALS HANDLER documented as of this encounter Plan of Treatment Upcoming Encounters Date Type Department Care Team (Late st Contact Info) Description 11/14/2024 8:00 AM MATERIALS HANDLER Office Visit [facility] Mult[facility]ial[facility] Care - [facility] 3 [facility], [address] [place] [address] Montserrat Oliver, GRAIN OPERATIONS MANAGER 3 [facility] [address] [place] [address] 12/06/2024 9:30 AM MATERIALS HANDLER Appointment [facility] Open MRI [address] [place] [address] [place] [address] [facility]. [address] [place] [address] 03/02/2025 3:20 PM CDT Office Visit [facility] Family & Internal Medicine - [place] [address] [place] [phone] [place] [address] [facility]. [address] [place] [address] documented as of this encounter Visit Diagnoses Not on filedocumented in this encounter Additional Health Concerns Assessment Noted Time PHQ-9 Depression Total Score: 4 05/01/20 19 3:05 PM CDT documented as of this encounter Care Teams Hadoop Developer Relationship Specialty Start Date End Date Jaspreet Pearl MD PCP - General INTERNAL MEDICINE 11/30/18 02/18/23 documented as of this encounter
--- OUTSIDE RECORDS SUMMARY | 2024-11-13 17:54 | XMS_ITS | Encounter Summary ---
Author Organization [facility] Address [address] [place] [address]. [place], [place] [address] [place] [address] Care Team Providers Care Director [employer] Name Role Phone Jaspreet Pearl MD Primary Care Provider U Kelsey Dey NP Primary Care Provider [phone] Dayanara Plaza MD Primary Care Provider [phone] Perez Cervantes MD Unavailable Adriana Ma MD Unavailable [phone] Encounter Details Date Type Department Care Team (Late st Contact Info) Description 01/29/2020 Dev[employer] Message Enc [facility] Family & Internal Medicine [address] [address] Jaspreet Pearl MD RE: Follow [...] Master's degree (e.g., MA, MS, Howard, MEd, APPLICATION DEVELOPMENT DIRECTOR, KEKE) 12/21/2018 Comments No Sex and [...] Contact Info) Description 11/14/2024 8:00 AM SUPERVISOR PAINTING DEPARTMENT Office Visit [facility]ty Care - [facility] 3 [facility], [address] [place] [phone] Montserrat Oliver NP 3 [facility] [address] [place] [address] 12/06/2024 9:30 AM SUPERVISOR PAINTING DEPARTMENT Appointment [facility] Open MRI [address] [place] [address] [place] [address] [facility]. [address] [place] [phone] 03/02/2025 3:20 PM CDT Office Visit [facility] Family & Internal Medicine - [address] [phone] [place] [address] [place] [address] documented as of this encounter Visit Diagnoses Not on filedocumented in this encounter Additional Health Concerns Infection Onset Date Last Indicated Resolved Time COVID-19 Rule Out 03/14/2021 03/14/2021 03/15/2021 1:26 PM CDT COVID-19 Rule Out 04/03/2024 04/03/2024 04/03/2024 11:38 AM CDT Assessment Noted Time PHQ-9 Depression Total Score: 4 05/01/20 19 3:05 PM CDT documented as of this encounter Care Teams Director [employer] Relationship Specialty Start Date End Date Jaspreet Pearl MD PCP - General INTERNAL MEDICINE 11/30/18 02/18/23 [place] [address] [address] [place] [address] PCP - General Nurse Practitioner Family 02/19/23 02/28/23 [place] [address] [address] [place] [address] PCP - General FAMILY PRACTICE 03/01/23 Perez Cervantes MD [address] [place] [phone] RHEUMATOLOGY 09/02/23 Adriana Ma MD 325 [place], [place] 27[address] Referring Physician ALLERGY 09/02/23 documented as of this encounter
--- OUTSIDE RECORDS SUMMARY | 2024-11-13 17:54 | XMS_ITS | Encounter Summary ---
Author Organization [facility] Address [address] [place] [address]. [place], [place] [address] [place] [address] Care Team Providers Care Recorder Helper Seismograph Name Role Phone Jaspreet Pearl MD Primary Care Provider U raynaailable Reason for Visit * Imaging (Routine) - Closed Specialty Diagnoses / Procedures Referred By Contac t Referred To Contact RADIOLOGY Diagnoses Visit for screening mammogram Procedures MG SCREENING W KRISTEN VICTORIANO DIGI Stalin Calderón MD [address] [address] Phone: tel: fax: Referral ID Status Reason Start Date Expiration Date Visits Re quested Visits Authorized [id number] Closed 05/13/2020 06/12/2021 1 1 Encounter Details Date Type Department Care Team (Latest Contact Info) Description 07/11/2020 3:21 PM CDT - 07/11/2020 11:59 PM CDT Hospital Encounter [facility] Mammography [address] [place] [address] Stalin Calderón MD [address] [address] Discharge Disposition: Home or Self [...] Master's degree (e.g., MA, MS, Howard, MEd, PHOTOGRAPH MOUNTER, KEKE) 12/21/2018 Comments No Sex and Gender [...] 0.5 g vaginally twice a week. 0 BYP-UEM-Pxrhfbd E 192-251-11 MG-MG-UNIT Cap Take 1 capsule [...] 8:00 AM DYNAMIC ETCHING PROCESSOR Office Visit [facility] Multispecialty Care - [address], [address] [place] [phone] Montserrat Oliver, FISHING GAME WARDEN 3 [facility] [address] [place] [address] 12/06/2024 9:30 AM DYNAMIC ETCHING PROCESSOR [facility]ment [facility] [address] [place] [address] [place] [address] [place] [address] 03/02/2025 3:20 PM CDT Office Visit [facility] Family & Internal Medicine - [address] [phone] [place] [address] [place] [address] documented as of this encounter Procedures Procedure [...] documented as of this encounter Care Teams Recorder Helper Seismograph Relationship Specialty Start Date End Date Jaspreet Pearl MD PCP - General INTERNAL MEDICINE 11/30/18 02/18/23 documented as of this encounter
--- OUTSIDE RECORDS SUMMARY | 2024-11-13 17:54 | XMS_ITS | Encounter Summary ---
Author Organization [facility] Address [address] [place] [address]. [place] [address] [place] [address] Care Team Providers Care Garden Equipment Mechanic Name Role Phone Jaspreet Pearl MD Primary Care Provider Felipe juan carlos Encounter Details Date Type Department Care Team (Late st Contact Info) Description 11/20/2020 Orders Only [facility] Family & Internal Medicine [address] [address] Jaspreet Pearl MD Social History [...] degree (e.g., MA, MS, Howard, MEd, LEAD DATA ENTRY OPERATOR, KEKE) 12/21/2018 Comments No Sex and [...] COVID-19? No / Unsure 11/19/2020 5:38 PM MANUFACTURER AGENT documented as of this encounter Plan of Treatment Upcoming Encounters Date Type Department Care Team (Late st Contact Info) Description 11/14/2024 8:00 AM MANUFACTURER AGENT Office Visit [facility] Mult[facility]pecialty Care - [facility] 3 [facility], [address] [place] [address] Montserrat Oliver NP 3 [facility] [address] [place] [address] 12/06/2024 9:30 AM MANUFACTURER AGENT Appointment [facility] Open MRI [address] [place] [address] [place] [address] [facility] Master Lazaroe. [address] [place] [address] 03/02/2025 3:20 PM CDT Office Visit [facility] Family & Internal Medicine - [address] [phone] [place] [address] [facility] Hospital[facility]Afric[facility]aty canvs.cojerrell. [address] [place] [address] documented as of this encounter Visit Diagnoses Diagnosis DURAN (generalized anxiety disorder) Generalized anxiety disorder documented in this encounter Additional Health Concerns Assessment Noted Time PHQ-9 Depression Total Score: 4 05/01/20 19 3:05 PM CDT documented as of this encounter Care Teams Garden Equipment Mechanic Relationship Specialty Start Date End Date Jaspreet Pearl MD PCP - General INTERNAL MEDICINE 11/30/18 02/18/23 documented as of this encounter
--- OUTSIDE RECORDS SUMMARY | 2024-11-13 17:54 | XMS_ITS | Encounter Summary ---
Author Organization [facility] Address [address] [place] [address]. [place], [place] [address] [place] [address] Care Team Providers Care Trolley Wire Installer Name Role Phone Jaspreet Madsen MD Primary Care Provider Felipe rangel Reason for Visit * Reason Onset Date Comments Medication Request 01/26/2020 Encounter Details Date Type Department Care Team (Late st Contact Info) Description 01/26/2020 Telephone [facility] Family & Internal Medicine [address] [address] Jaspreet Madsen MD Medication Request [...] Master's degree (e.g., MA, MS, Howard, MEd, CAR PACKER, KEKE) 12/21/2018 Comments No Sex and [...] Pharmacy: [facility] Call back #: [phone] Last office visit at this office: Last visit with JASPREET MADSEN in INTERNAL MEDICINE was on: 01/12/2020 in [facility] Future appointment scheduled: Future Appointments Date Time Provider Department Center 02/07/2020 4:20 PM Jaspreet Madsen MD [facility] documented in this encounter Plan of Treatment Upcoming Encounters Date Type Department Care Team (Late st Contact Info) Description 11/14/2024 8:00 AM MONEY POSITION OFFICER Office Visit [facility] Multispecialty Care - [facility] 3 [facility], [address] [place] [phone] Montserrat Oliver NP 3 [facility] [address] [place] [address] 12/06/2024 9:30 AM MONEY POSITION OFFICER Appointment [facility] Open MRI [address] [place] [address] [place] [address] [facility]. [address] [place] [address] 03/02/2025 3:20 PM CDT Office Visit [facility] Family & Internal Medicine - [address] [phone] [place] [address] [facility]. [address] [place] [address] documented as of this encounter Visit Diagnoses Diagnosis DURAN (generalized anxiety disorder) Generalized anxiety disorder documented in this encounter Additional Health Concerns Assessment Noted Time PHQ-9 Depression Total Score: 4 05/01/20 19 3:05 PM CDT documented as of this encounter Care Teams Trolley Wire Installer Relationship Specialty Start Date End Date Jaspreet Madsen MD PCP - General INTERNAL MEDICINE 11/30/18 02/18/23 documented as of this encounter
--- OUTSIDE RECORDS SUMMARY | 2024-11-13 17:54 | XMS_ITS | Encounter Summary ---
Author Organization [facility] Address [address] [place] [address]. [place], [place] [address] [place] [address] Care Team Providers Care Flexo Folder Gluer Operator Name Role Phone Jaspreet Madsen MD Primary Care Provider U raynaailelijah Reason for Visit * Reason Comments Sinus Problem onset- Sun Cough sl mucous Headache no temp. Encounter Details Date Type Department Care Team (Late st Contact Info) Description 08/14/2020 4:00 PM CDT Telemedicine [facility] Family & Internal Medicine [address] [phone] Jaspreet Madsen MD Sinus Problem [...] degree (e.g., MA, MS, Howard, MEd, SPECIAL EDUCATION SUPERINTENDENT, KEKE) 12/21/2018 Comments No Sex and Gender [...] aware that the same confidentiality and information management specialist practices apply. The patient joined the video [...] DAILY, Disp: 30 tablet, Rfl: 2 ??? XOI-LSL-Bikbkhc E (OMEGA-3 COMPLEX) 192-251-11 MG-MG-UNIT Cap, Take [...] by mouth daily., Disp: , Rfl: ??? KMDGXFGW-[id number]-QTVBVSWLJELJJO otic solution, , Disp: , Rfl: ??? 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 Social [...] file Gets together: Not on file Attends rastafarian service: Not on file Active member of [...] geta get some muscle aches or Nasacort tyfl-xfm-btdgyli and anticough medicine jlga-asx-lgpcoud to also encouraged her to take a [...] st Contact Info) Description 11/14/2024 8:00 AM HEARING INSTRUMENT SPECIALIST Office Visit [facility] Multispecialty Care - [facility] 3 [facility], [address] [place] [address] Montserrat Oliver NP 3 [facility] [address] [place] [address] 12/06/2024 9:30 AM HEARING INSTRUMENT SPECIALIST Appointment [facility] Open MRI [address] [facility] [place] [address] [place] [address] [employer]. [address] [place] [address] 03/02/2025 3:20 PM CDT Office Visit [facility] Family & Internal Medicine - [address] [phone] [place] [address] [place] [address] documented as of this encounter Visit Diagnoses Diagnosis Acute upper respiratory infection- Primary Acute upper respiratory infections of unspecified site Polyarthritis Unspecified polyarthropathy or polyarthritis, site unspecified Recurrent major depressive disorder, in partial remission (CMS/HCC) documented in this encounter Additional Health Concerns Assessment Noted Time PHQ-9 Depression Total Score: 4 05/01/20 19 3:05 PM CDT documented as of this encounter Care Teams Flexo Folder Gluer Operator Relationship Specialty Start Date End Date Jaspreet Madsen MD PCP - General INTERNAL MEDICINE 11/30/18 02/18/23 documented as of this encounter
--- OUTSIDE RECORDS SUMMARY | 2024-11-13 17:54 | XMS_ITS | Encounter Summary ---
Author Organization [facility] Address [address] [place] [address]. [place], [place] [address] [place] [address] Care Team Providers Care Sound Technician Name Role Phone Jaspreet Pearl MD Primary Care Provider U navailable Reason for Referral * Consultation (Routine) - Closed Specialty Diagnoses / Procedures Referred By Contac t Referred To Contact GASTROENTEROLOGY Diagnoses Encounter for screening colonoscopy Jaspreet Pearl MD Kim, Peter S, MD [address] [place], [place] [address] Phone: tel: fax: Referral ID Status Reason Start Date Expiration Date Visits Re quested Visits Authorized [id number] Closed 11/13/2020 12/14/2021 99 99 ENTIALER Encounter Details Date Type Department Care Team (Late st Contact Info) Description 11/13/2020 Orders Only [facility] Family & Internal Medicine [address] [address] Jaspreet Pearl MD Social History [...] Master's degree (e.g., MA, MS, Howard, MEd, FILLING AND STAPLING MACHINE OPERATOR, KEKE) 12/21/2018 Comments No Sex [...] - 11/13/2020 8:02 AM CST Ref gi ENTIALER documented in this encounter Plan of Treatment Upcoming Encounters Date Type Department Care Team (Late st Contact Info) Description 11/14/2024 8:00 AM CREDENTIALER Office Visit [facility] Multispecialty Care - [address], [address] [place] [phone] Montserrat Oliver NP 3 [facility] [address] [place] [address] 12/06/2024 9:30 AM CREDENTIALER Appointment [facility] Open MRI [address] [place] [address] [place] [address] [facility]. [address] [place] [phone] 03/02/2025 3:20 PM CDT Office Visit [facility] Family & Internal Medicine - [address] [phone] [place] [address] [facility]. [address] [place] [address] Scheduled Referrals Name Type Priority Associated Diagnoses [...] documented as of this encounter Care Teams Sound Technician Relationship Specialty Start Date End Date Jaspreet Pearl MD PCP - General INTERNAL MEDICINE 11/30/18 02/18/23 documented as of this encounter
--- OUTSIDE RECORDS SUMMARY | 2024-11-13 17:54 | XMS_ITS | Encounter Summary ---
Author Organization [facility] Address [address] [place] [address]. [place], [place] [address] [place] [address] Care Team Providers Care Battery Tester Name Role Phone Jaspreet Madsen MD Primary Care Provider U raynaailelijah Reason for Visit * Reason Comments Cough prod - clr to white Runny Nose no temp, onset- gloria hs Encounter Details Date Type Department Care Team (Late st Contact Info) Description 01/10/2020 2:20 PM INDUSTRIAL SPECIALIST Office Visit [facility] Medical Group Family & Internal Medicine [address] [address] Jaspreet Madsen MD Cough (prod [...] Master's degree (e.g., MA, MS, Howard, MEd, FURNACE CHARGER, KEKE) 12/21/2018 Comments No Sex and Gender [...] Comments Blood Pressure 110/60 01/10/2020 2:30 PM INDUSTRIAL SPECIALIST Pulse 99 01/10/2020 2:30 PM INDUSTRIAL SPECIALIST Temperature 37.2 ??C (99 ??F) 01/10/2020 2:30 PM INDUSTRIAL SPECIALIST Respiratory Rate 16 01/10/2020 2:30 PM INDUSTRIAL SPECIALIST Oxygen Saturation 98% 01/10/2020 2:30 PM INDUSTRIAL SPECIALIST Inhaled Oxygen Concentration - - Weight 76.7 kg (169 lb 3.2 oz) 01/10/2020 2:30 P M INDUSTRIAL SPECIALIST Height 172.7 cm (5' 8 ) 01/10/2020 2:30 PM INDUSTRIAL SPECIALIST Body Mass Index 25.73 01/10/2020 2:30 PM INDUSTRIAL SPECIALIST documented in this encounter Progress Notes * Jaspreet Masden MD - 01/10/2020 2:20 PM CST Reason [...] twice a week., Disp: , Rfl: ??? UEE-MJO-Yjkcqkx E (OMEGA-3 COMPLEX) 192-251-11 MG-MG-UNIT Cap, Take [...] bedtime., Disp: 30 tablet, Rfl: 0 ??? 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 ? INFLUENZA A & B Follow up FU PRN JASPREET MADSEN MD 01/10/2020 2:47 PM STRIAL SPECIALIST documented in this encounter Plan of Treatment Upcoming Encounters Date Type Department Care Team (Late st Contact Info) Description 11/14/2024 8:00 AM INDUSTRIAL SPECIALIST Office Visit [facility] Multispecialty Care - [address], [address] [place] [phone] Montserrat Oliver NP 3 [facility] [address] [place] [address] 12/06/2024 9:30 AM INDUSTRIAL SPECIALIST Appointment [facility] Open MRI [address] [place] [address] [place] [address] [facility]. [address] [place] [phone] 03/02/2025 3:20 PM CDT Office Visit [facility] Family & Internal Medicine - [place] [address] [place] [phone] [place] [address] [facility]. [address] [place] [phone] documented as of this encounter Procedures Procedure Name Priority Date/Time Associated Diagnosis Comments INFLUENZA A & B Today 01/10/2020 Fever, unspecified fever cause documented in this encounter Results * INFLUENZA A & B (01/10/2020) Pathologist [facility] INFULENZA A AB NEGATIVE NEGATIVE [address] ([address]), [place] INFLUENZA B AB NEGATIVE NEGATIVE [address] ([address]), [place] Internal Control: VALID VALID [address] ([address]), [place] NASOPHARYNGEAL SWAB / Unknown 01/10/2020 us Jaspreet Madsen MD MICROBIOLOGY - GENERAL O RDERABLES Final Result [address] ([address]), [place] [address] [place] [address], documented in this encounter Visit Diagnoses Diagnosis Acute upper respiratory infection- Primary Acute upper respiratory infections of unspecified site Fever, unspecified fever cause documented in this encounter Additional Health Concerns Assessment Noted Time PHQ-9 Depression Total Score: 4 05/01/20 19 3:05 PM CDT documented as of this encounter Care Teams Battery Tester Relationship Specialty Start Date End Date Jaspreet Madsen MD PCP - General INTERNAL MEDICINE 11/30/18 02/18/23 documented as of this encounter
--- OUTSIDE RECORDS SUMMARY | 2024-11-13 17:54 | XMS_ITS | Encounter Summary ---
Author Organization [facility] Address [address] [place] [address]. [place], [place] [address] [place] [address] Care Team Providers Care Abseiling Instructor Name Role Phone Jaspreet Pearl MD Primary Care Provider U Kelsey Dey NP Primary Care Provider [phone] Dayanara Plaza MD Primary Care Provider [phone] Perez Cervantes MD Unavailable Adriana Ma MD Unavailable [phone] Encounter Details Date Type Department Care Team (Late st Contact Info) Description 11/11/2020 NewsWhipt Message Enc [facility] Family & Internal Medicine [address] [address] Jaspreet Pearl MD RE: Referral [...] Master's degree (e.g., MA, MS, Howard, MEd, HOOP FLARING MACHINE OPERATOR, KEKE) 12/21/2018 Comments No Sex [...] 2:40 PM CST Printed to ask . BOUND BOX MACHINE OPERATOR documented in this encounter Plan of Treatment Upcoming Encounters Date Type Department Care Team (Late st Contact Info) Description 11/14/2024 8:00 AM WIRE BOUND BOX MACHINE OPERATOR Office Visit [facility] Multispecialty Care - [address], [address] [place] [phone] Montserrat Oliver NP [address] [place] [address] [place] [address] 12/06/2024 9:30 AM WIRE BOUND BOX MACHINE OPERATOR Appointment [facility] Open MRI [address] [place] [address] [place] [address] [facility]. [address] [place] [address] 03/02/2025 3:20 PM CDT Office Visit [facility] Family & Internal Medicine - [address] [address] [place] [address] [facility]. [address] [place] [address] documented as of this encounter Visit Diagnoses Not on filedocumented in this encounter Additional Health Concerns Infection Onset Date Last Indicated Resolved Time COVID-19 Rule Out 03/14/2021 03/14/2021 03/15/2021 1:26 PM CDT COVID-19 Rule Out 04/03/2024 04/03/2024 04/03/2024 11:38 AM CDT Assessment Noted Time PHQ-9 Depression Total Score: 4 05/01/20 3:05 PM CDT documented as of this encounter Care Teams Abseiling Instructor Relationship Specialty Start Date End Date Jaspreet Pearl MD PCP - General INTERNAL MEDICINE 11/30/18 02/18/23 Kelsey Kc, DOREEN [address] [place] [address] PCP - General Nurse Practitioner Family 02/19/23 02/28/23 [place] [address] [address] [place] [address] PCP - General FAMILY PRACTICE 03/01/23 Perez Cervantes MD [address] [place] [phone] RHEUMATOLOGY 09/02/23 Adriana Ma MD [address] [place] [address] Referring Physician ALLERGY 09/02/23 documented as of this encounter
--- OUTSIDE RECORDS SUMMARY | 2024-11-13 17:54 | XMS_ITS | Encounter Summary ---
Author Organization [facility] Address [address] [place] [address]. [place], [place] [address] [place] [address] Care Team Providers Care Tractor Trailer Driver Name Role Phone Jaspreet Pearl MD [...] degree (e.g., MA, MS, Howard, MEd, CERTIFIED VETERINARY TECHNICIAN, KEKE) 12/21/2018 Comments No Sex and [...] st Contact Info) Description 11/14/2024 8:00 AM SHUTTLE FILLER Office Visit [facility] Multispecialty Care - [facility] [address] [facility], [address] [place] [phone] Montserrat Oliver, ENGINEERING DOCUMENTATION SPECIALIST [address] [place] [address] 12/06/2024 9:30 AM SHUTTLE FILLER [facility] [address] [facility] [place] [address] [place] [address] [facility] [address] [place] [address] 03/02/2025 3:20 PM CDT Office Visit [facility] Family & Internal Medicine - [address] [phone] [place] [address] [facility] [address] [place] [address] documented as of this encounter Visit Diagnoses Not on filedocumented in this encounter Additional Health Concerns Assessment Noted Time PHQ-9 Depression Total Score: 4 05/01/20 19 3:05 PM CDT documented as of this encounter Care Teams Tractor Trailer Driver Relationship Specialty Start Date End Date Jaspreet Pearl MD PCP - General INTERNAL MEDICINE 11/30/18 02/18/23 documented as of this encounter
--- OUTSIDE RECORDS SUMMARY | 2024-11-13 17:54 | XMS_ITS | Encounter Summary ---
Author Organization [facility] Address [address] [place] [address]. [place], [place] [address] [place] [address] Care Team Providers Care Rn Chemical Dependency Name Role Phone Jaspreet Pearl MD Primary [...] Master's degree (e.g., MA, MS, Howard, MEd, INTELLIGENCE ENGINEER, KEKE) 12/21/2018 Comments No Sex and [...] st Contact Info) Description 11/14/2024 8:00 AM LIVESTOCK YARD SUPERVISOR Office Visit [facility] Multispecialty Care - [facility] [address] [facility], [address] [place] [phone] Montserrat Oliver, FRANCHISE FIELD CONSULTANT [address] [place] [address] 12/06/2024 9:30 AM LIVESTOCK YARD SUPERVISOR [facility] [address] [facility] [address] [place] [address] [facility] [address] [place] [address] 03/02/2025 3:20 PM CDT Office Visit [facility] Family & Internal Medicine - [address] [phone] [place] [address] [facility] [address] [place] [address] documented as of this encounter Visit Diagnoses Not on filedocumented in this encounter Additional Health Concerns Assessment Noted Time PHQ-9 Depression Total Score: 4 05/01/20 19 3:05 PM CDT documented as of this encounter Care Teams Rn Chemical Dependency Relationship Specialty Start Date End Date Jaspreet Pearl MD PCP - General INTERNAL MEDICINE 11/30/18 02/18/23 documented as of this encounter
--- OUTSIDE RECORDS SUMMARY | 2024-11-13 17:54 | XMS_ITS | Encounter Summary ---
Author Organization [facility] Address [address] [place] [address]. [place], [place] [address] [place] [address] Care Team Providers Care Certified Breastfeeding Educator Name Role Phone Jasrpeet Pearl MD Primary Care Provider Felipe rangel Reason for Visit * Reason Onset Date Comments COVID-19 09/04/2020 Encounter Details Date Type Department Care Team (Late st Contact Info) Description 09/04/2020 Telephone [facility] Family & Internal Medicine [address] [phone] Felicia Yang, NURSING TECHNICIAN [address] [phone] COVID-19 Social History Tobacco Use Types Packs/Day [...] Master's degree (e.g., MA, MS, Howard, MEd, NAIL MAKER, KEKE) 12/21/2018 Comments No Sex and [...] came back negative (she was tested at [facility] in [place]). Stated she is still feeling pretty crappy [...] meeting with a student at 10:30. C/B# [phone] documented in this encounter Plan of Treatment Upcoming Encounters Date Type Department Care Team (Late st Contact Info) Description 11/14/2024 8:00 AM PRODUCTION UTILITY WORKER Office Visit [facility] Multispecialty Care - [facility] [address] [facility], [address] [place] [address] Montserrat Oliver, DOREEN [address] [facility] [address] [place] [address] 12/06/2024 9:30 AM PRODUCTION UTILITY WORKER Appointment [facility] Open MRI [address] [place] [address] [place] [address] [address] [place], [place] [phone] 03/02/2025 3:20 PM CDT Office Visit [facility] Family & Internal Medicine - [place] [phone] [place] [phone] [place] [address] [facility]. [address] [place] [phone] documented as of this encounter Visit Diagnoses Not on filedocumented in this encounter Additional Health Concerns Assessment Noted Time PHQ-9 Depression Total Score: 4 05/01/20 19 3:05 PM CDT documented as of this encounter Care Teams Certified Breastfeeding Educator Relationship Specialty Start Date End Date Jaspreet Pearl MD PCP - General INTERNAL MEDICINE 11/30/18 02/18/23 documented as of this encounter
--- OUTSIDE RECORDS SUMMARY | 2024-11-13 17:54 | XMS_ITS | Encounter Summary ---
Author Organization [facility] Address [address] [place] [address]. [place] [address] [place] [address] Care Team Providers Care Shuttle Inspector Name Role Phone Jaspreet Madsen MD Primary Care Provider U juan carlos Reason for Visit * Reason Comments Sore Throat Back Pain Encounter Details Date Type Department Care Team (Late st Contact Info) Description 12/15/2019 10:20 AM SCHOOL CROSSING GUARD Office Visit [facility] [address] [place] [address] Lara Judge, BAND LOG MILL AND CARRIAGE OPERATOR [address] [facility] [address] [place] [address] Sore Throat; Back Pain Social [...] Master's degree (e.g., MA, MS, Howard, MEd, EMPLOYEE HEALTH RN, KEKE) 12/21/2018 Comments No Sex and [...] Comments Blood Pressure 120/60 12/15/2019 10:30 AM SCHOOL CROSSING GUARD Pulse 76 12/15/2019 10:30 AM SCHOOL CROSSING GUARD Temperature 37 ??C (98.6 ??F) 12/15/2019 10:30 AM SCHOOL CROSSING GUARD Respiratory Rate 18 12/15/2019 10:30 AM SCHOOL CROSSING GUARD Oxygen Saturation 100% 12/15/2019 10:30 AM SCHOOL CROSSING GUARD Inhaled Oxygen Concentration - - Weight 77 kg (169 lb 12.8 oz) 12/15/2019 10:30 A M SCHOOL CROSSING GUARD Height 175.3 cm (5' 9 ) 12/15/2019 10:30 AM SCHOOL CROSSING GUARD Body Mass Index 25.08 12/15/2019 10:30 AM SCHOOL CROSSING GUARD documented in this encounter Patient Instructions * Patient Instructions* Lara Judge, BAND LOG MILL AND CARRIAGE OPERATOR - 12/15/2019 10:20 AM SCHOOL CROSSING GUARD Images from the original note were not [...] swelling. Where can I learn more? National [place] of Arthritis and Musculoskeletal and Skin Diseases https://www.niams.nih.gov/health-topics/back-pain National [place] of Neurological Disorders and Stroke https://www.ninds.nih.gov/Disorders/Lijfjyy-Znyjlcuah-Iyfehwrud/Fact-Sheets/Low- Fyzo-Cozx-Psou-Sheet Last Reviewed Date 2019-06-15 Consumer Information Use [...] right for you. Copyright Copyright ?? 2019 [employer] and its affiliates and/or licensors. All rights reserved. OL CROSSING GUARD documented in this encounter Progress Notes * Lara Jduge NP - 12/15/2019 10:20 AM CST Images from the original note were not included. Reason for Visit: Sore Throat and Back Pain History of Present Illness: Hans Pascual is a 54-year-old female presenting today to [facility] Noemi Leal complaining of back pain that [...] Spasms., Disp: 7 tablet, Rfl: 0 ??? HQA-JBC-Trdshdv E (OMEGA-3 COMPLEX) 192-251-11 MG-MG-UNIT Cap, Take [...] (two) times daily., Disp: , Rfl: ??? DFTQJMTK-GLFQIMAUR-SLDATBNODSIPMZ otic solution, , Disp: , Rfl: ??? 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 [...] file Gets together: Not on file Attends yazidi service: Not on file Active member of [...] Haresh Hauser MD at 12/17/2019 1:12 PM SCHOOL CROSSING GUARD OL CROSSING GUARD OL CROSSING GUARD documented in this encounter Plan of Treatment Upcoming Encounters Date Type Department Care Team (Late st Contact Info) Description 11/14/2024 8:00 AM SCHOOL CROSSING GUARD Office Visit [facility] Group Multispecialty [place] [address] [facility], [address] [place] [address] Montserrat Oliver NP [address] [facility] [address] [place] [address] 12/06/2024 9:30 AM SCHOOL CROSSING GUARD Appointment [facility] Open MRI [address] [place] [address] [place] [address] [place] [address] 03/02/2025 3:20 PM CDT Office Visit [facility] Medical Group Family & Internal Medicine - [address] [phone] [place] [address] [place] [address] documented as of this encounter Procedures Procedure Name Priority Date/Time Associated Diagnosis Comments RAPID STREP A Routine 12/15/2019 Sore throat documented in this encounter Results * RAPID STREP A (12/15/2019) RAPID STREP TEST neg NEGATIVE [facility] Internal Control: VALID VALID [facility] STRUCTURE OF ANTERIOR PORTION OF NECK / Unknown 12/15/2019 us Lara Judge NP MICROBIOLOGY - GENERAL ORDERA BLES Final Result [facility] [address] [place] [address], [place] [phone] documented in this encounter Visit Diagnoses Diagnosis Muscle spasm- Primary Spasm of muscle Sore throat Acute pharyngitis documented in this encounter Additional Health Concerns Assessment Noted Time PHQ-9 Depression Total Score: 4 05/01/20 19 3:05 PM CDT documented as of this encounter Care Teams Shuttle Inspector Relationship Specialty Start Date End Date Jaspreet Madsen MD PCP - General INTERNAL MEDICINE 11/30/18 02/18/23 documented as of this encounter
--- OUTSIDE RECORDS SUMMARY | 2024-11-13 17:54 | XMS_ITS | Encounter Summary ---
Author Organization [facility] Address [address] [place] [address]. [place], [place] [phone] [place] [address] Care Team Providers Care Coat Checker Name Role Phone Jaspreet Madsen MD Primary Care Provider U navailable Reason for Visit * Reason Comments Sore Throat hurts to swallow, re ddened tonsil, no feve,hurts to swallow Encounter Details Date Type Department Care Team (Late st Contact Info) Description 05/20/2020 4:00 PM CDT Telemedicine [facility] Family & Internal Medicine [address] [phone] Jaspreet Madsen MD Sore Throat [...] Master's degree (e.g., MA, MS, Howard, MEd, CONCRETE BUSTER OPERATOR, KEKE) 12/21/2018 Comments No Sex and [...] twice a week., Disp: , Rfl: ??? OQV-DWH-Spckxij E (OMEGA-3 COMPLEX) 192-251-11 MG-MG-UNIT Cap, Take [...] times daily., Disp:20 capsule, Rfl: 0 ??? 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 Multispecialty Care - [address], [address] [place] [phone] Montserrat Oliver NP [address] [facility] [address] [place] [address] 12/06/2024 9:30 AM SHAKE SAWYER Appointment [facility] MRI [address] [place] [address] [place] [address] [facility]. [address] [place] [address] 03/02/2025 3:20 PM CDT Office Visit [facility] Medical [facility] Family & Internal Medicine - [place] [address] [place] [phone] [place] [address] [facility]. [address] [place] [address] documented as of this encounter Visit Diagnoses Diagnosis Acute pharyngitis, unspecified etiology- Primary documented in this encounter Additional Health Concerns Assessment Noted Time PHQ-9 Depression Total Score: 4 05/01/20 3:05 PM CDT documented as of this encounter Care Teams Coat Checker Relationship Specialty Start Date End Date Jaspreet Madsen MD PCP - General INTERNAL MEDICINE 11/30/18 02/18/23 documented as of this encounter
--- OUTSIDE RECORDS SUMMARY | 2024-11-13 17:54 | XMS_ITS | Encounter Summary ---
Author Organization [facility] Address [address] [place] [address]. [place], [place] [address] [place] [address] Care Team Providers Care Costume Cutter Name Role Phone Jaspreet Madsen MD Primary Care Provider U juan carlos Reason for Visit * Reason Comments Fever 102-102.[address] temp this am was only 99.9 . Cough Body Aches Encounter Details Date Type Department Care Team (Late st Contact Info) Description 01/12/2020 8:20 AM CIGAR PACKER AND SORTER Office Visit [facility] Group Family & Internal Medicine [address] [address] Jaspreet Madsen MD Fever (102-102.8 [...] Master's degree (e.g., MA, MS, Howard, MEd, HEDIS NURSE, KEKE) 12/21/2018 Comments No Sex and [...] Comments Blood Pressure 90/60 01/12/2020 8:16 AM CIGAR PACKER AND SORTER Pulse 76 01/12/2020 8:16 AM CIGAR PACKER AND SORTER Temperature 36.7 ??C (98.1 ??F) 01/12/2020 8:16 AM CS T Respiratory Rate 18 01/12/2020 8:16 AM CIGAR PACKER AND SORTER Oxygen Saturation 97% 01/12/2020 8:16 AM CIGAR PACKER AND SORTER Inhaled Oxygen Concentration - - Weight 76.7 kg (169 lb) 01/12/2020 8:16 AM CIGAR PACKER AND SORTER Height 172.7 cm (5' 8 ) 01/12/2020 8:16 AM CIGAR PACKER AND SORTER Body Mass Index 25.7 01/12/2020 8:16 AM CIGAR PACKER AND SORTER documented in this encounter Progress Notes * [...] twice a week., Disp: , Rfl: ??? XPZ-KTG-Awrdlbe E (OMEGA-3 COMPLEX) 192-251-11 MG-MG-UNIT Cap, Take [...] (two) times daily., Disp: , Rfl: ??? XPMJHEPS-XWWNREQND-ZYJXBIZFRRBEQA otic solution, , Disp: , Rfl: ??? 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 Also encouraged her to stay home and rest. No orders of the defined types were placed in this encounter. Follow up FU PRN JASPREET MADSEN MD 01/18/2020 3:25 PM R PACKER AND SORTER documented in this encounter Plan of Treatment Upcoming Encounters Date Type Department Care Team (Late st Contact Info) Description 11/14/2024 8:00 AM CIGAR PACKER AND SORTER Office Visit [facility] Multispecialty Care - [address], [address] [place] [phone] Montserrat Oliver NP 3 [facility] [address] [place] [address] 12/06/2024 9:30 AM CIGAR PACKER AND SORTER Appointment [facility] Open MRI [address] [place] [address] [place] [address] [place] [address] [place] [address] 03/02/2025 3:20 PM CDT Office Visit [facility] Family & Internal Medicine - [place] [phone] [place] [phone] [place] [address] [address] [place] [address] documented as of this encounter Visit Diagnoses Diagnosis Acute upper respiratory infection- Primary Acute upper respiratory infections of unspecified site Recurrent major depressive disorder, in partial remission (CMS/HCC) documented in this encounter Additional Health Concerns Assessment Noted Time PHQ-9 Depression Total Score: 4 05/01/20 19 3:05 PM CDT documented as of this encounter Care Teams Costume Cutter Relationship Specialty Start Date End Date Jaspreet Madsen MD PCP - General INTERNAL MEDICINE 11/30/18 02/18/23 documented as of this encounter
--- OUTSIDE RECORDS SUMMARY | 2024-11-13 17:55 | XMS_ITS | Encounter Summary ---
Author Organization [facility] Address [address] [place] [address]. [place], [place] [address] [place] [address] Care Team Providers Care Video Rental Clerk Name Role Phone Unavailable Primary Care Provider Unavailabl e Encounter Details Date Type Department Care Team (Latest Contact Info) Description 07/01/2018 Abstract [facility] , [place] [...] Weber Task Name: Call Back Assigned To: [facility] Dae Nurse Team Regarding Patient: Hans [...] Montserrat Weber, ; Jul 01 2018 11:06AM SAND CAR WORKER (Author) documented in this encounter Plan of Treatment Upcoming Encounters Date Type Department Care Team (Late st Contact Info) Description 11/14/2024 8:00 AM SAND CAR WORKER Office Visit [facility] Multispecialty Care - [facility] 3 [facility], Suite [facility] [place] [address] Montserrat Oliver NP 3 [facility] [address] [place] [address] 12/06/2024 9:30 AM SAND CAR WORKER Appointment [facility] Open MRI [address] [place] [address] [place] [address] [address] [place] [phone] 03/02/2025 3:20 PM CDT Office Visit [facility] Family & Internal Medicine - [address] [phone] [place] [address] [address] [place] [address] documented as of this encounter Visit Diagnoses Not on filedocumented in this encounter
--- OUTSIDE RECORDS SUMMARY | 2024-11-13 17:55 | XMS_ITS | Encounter Summary ---
Author Organization [facility] Address [address] [place] [address]. [place] [address] [place] [address] Care Team Providers Care Taxicab Dispatcher Name Role Phone Unavailable Primary Care Provider Unavailabl e Encounter Details Date Type Department Care Team (Late st Contact Info) Description 05/19/2018 Abstract [facility] Medical Group Family & Internal Medicine [address] [address] Jaspreet Pearl MD Social History [...] gotten worse while on her trip to [facility]. Pt stated she was wheezing and having [...] No illicit drug use ?? 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 Benzonatate 200 MG Oral Capsule; TAKE 1 CAPSULE 3 TIMES DAILY NEEDED; Therapy: 29Apr2018 to (Evaluate:14May2018) Requested for: 04May2018; Last Rx:04May2018 Ordered 2. Dicyclomine HCl - 20 MG Oral Tablet; TAKE 1 TABLET BY MOUTH EVERY 6 HOURS NEEDED; Therapy: 83Wzb5021 to (Evaluate:98Dpx2249) Requested for: 28Feb2018; Last Rx:87Vxi1213 Ordered 3. Enbrel 50 MG/ML Subcutaneous Solution Prefilled Syringe; INJECT 50MG ONCE A WEEK; Therapy: 93Fyq5396 to (Evaluate:23Mar2017) Recorded 4. Fluticasone Propionate 50 MCG/ACT Nasal Suspension; One spray each nostril two times daily; Therapy: 56Ygc8916 to (Last Rx:04Apr2018) Requested for: 04Apr2018 Ordered 5. Folic Acid 1 MG Oral Tablet; TAKE 1 TABLET DAILY; Therapy: 78Aun4741 to (Evaluate:07Rns0118) Recorded 6. Hydrocod Polst-CPM Polst ER 10-8 MG/5ML Oral Suspension Extended Release; 5 ml by mouth every 12 hours for cough; Therapy: 17Mar2018 to (Last Rx:94Eka9749) Ordered 7. Methotrexate 2.5 MG Oral Tablet; TAKE 8 TABLET Weekly; Therapy: 09Ozt6043 to Recorded 8. MiraLax Oral Packet; MIX 1 PACKET IN 8 OUNCES OF LIQUID AND DRINK ONCE DAILY. prn; Therapy: (Recorded:23Ucn6387) to Recorded 9. Montelukast Sodium 10 MG Oral Tablet; TAKE 1 TABLET IN THE EVENING; Therapy: 29Apr2018 to (Evaluate:27Aug2018) Requested for: 29Apr2018; Last Rx:29Apr2018 Ordered 10. Multi-Vitamins TABS; TAKE 2 TABLET Daily; Therapy: (Recorded:74Mqr6236) to Recorded 11. Nabumetone 500 MG Oral Tablet; TAKE 2 TABLET TWICE DAILY; Therapy: 38Qfc8377 to Recorded 12. Fairdealing-3 Complex 192-251-11 MG-MG-UNIT Oral Capsule; Take one cap daily; Therapy: (Recorded:04Dec2014) to Recorded 13. Premarin 0.625 MG/GM Vaginal Cream; Insert 0.5 gram 3 times weekly at hs; Therapy: 05Dsd0301 to (Evaluate:24Kgq8291) Recorded Allergies 1. Levaquin TABS Vitals Recorded: 85Fab1169 11:08AM Temperature 98.1 F Heart Rate 85 [...] rhinitis; EMA = N; Verified Transmission to [facility] [place]; Last Updated By: Meredith TafoyaNBA Math [employer]ops; 05/19/2018 11:47:58 AM Anxiety 2. ALPRAZolam 0.25 [...] Sinusitis, acute; EMA =N; Verified Transmission to [facility]; Last Updated By: [employer]; 05/19/2018 11:50:04 AM Discussion/Summary At this time, [...] Jaspreet Pearl M.D.; May 25 2018 1:18PM MANAGER OF CUSTOMER BILLING (Author) documented in this encounter Plan of Treatment Upcoming Encounters Date Type Department Care Team (Late st Contact Info) Description 11/14/2024 8:00 AM MANAGER OF CUSTOMER BILLING Office Visit [facility] Multispecialty Care - [address], [address] [place] [phone] Montserrat Oliver NP 3 [facility] [address] [place] [address] 12/06/2024 9:30 AM MANAGER OF CUSTOMER BILLING Appointment [facility] Open MRI [address] [place] [address] [place] [address] [facility] [place] [address] 03/02/2025 3:20 PM CDT Office Visit [facility] Family & Internal Medicine - [place] [address] [place] [phone] [place] [address] [facility] Darlene. [address] [place] [address] documented as of this encounter Visit Diagnoses Not on filedocumented in this encounter
--- OUTSIDE RECORDS SUMMARY | 2024-11-13 17:55 | XMS_ITS | Encounter Summary ---
Author Organization [facility] Address [address] [place] [address]. [place] [address] [place] [address] Care Team Providers Care Wire Splicer Name Role Phone Unavailable Primary Care Provider Unavailabl e Reason for Visit * Reason Onset Date Comments Medication 10/19/2018 Encounter Details Date Type Department Care Team (Late st Contact Info) Description 10/19/2018 Telephone [facility] Family & Internal Medicine [facility] [address] [place] [address] [place] [address] [place] [address] Medication Social History Tobacco Use [...] PRN #20 with no refill called to [facility] Red as requested. IALTY DEVELOPMENT CONSULTANT * Aline Valencia MA - 10/19/2018 10:37 AM CST Hans is currently at [facility] in [place]. Her father underwent a liver transplant and had astroke and is not expected to survive recovery. Hans is under a great deal of stress and is struggling with sleep. She is requesting [facility] The [facility] is at [address] [place] [address] at [facility] and the phone is [phone]. Hans can be reached at [phone] with any problems or questions. IALTY DEVELOPMENT CONSULTANT documented in this encounter Plan of Treatment Upcoming Encounters Date Type Department Care Team (Late st Contact Info) Description 11/14/2024 8:00 AM SPECIALTY DEVELOPMENT CONSULTANT Office Visit [facility] Multispecialty Care - [facility] 3 [facility], [address] [place] [phone] Montserrat Oliver NP 3 [facility] [address] [place] [address] 12/06/2024 9:30 AM SPECIALTY DEVELOPMENT CONSULTANT Appointment [facility] Open MRI [address] [place] [address] [place] [address] [facility] [address] [place] [address] 03/02/2025 3:20 PM CDT Office Visit [facility] Family & Internal Medicine - [address] [phone] [place] [address] [facility] [place] [address] documented as of this encounter Visit Diagnoses Not on filedocumented in this encounter
--- OUTSIDE RECORDS SUMMARY | 2024-11-13 17:55 | XMS_ITS | Encounter Summary ---
Author Organization [facility] Address [address] [place] [address]. [place] [address] [place] [address] Care Team Providers Care Bacteriologist Soil Name Role Phone Unavailable Primary Care Provider Unavailabl e Reason for Visit * Reason Onset Date Comments Medication Request 10/24/2018 Encounter Details Date Type Department Care Team (Late st Contact Info) Description 10/24/2018 Telephone [facility] Family & Internal Medicine [facility] [address] [place] [address] [place] Pearl [place] [address] [place] [address] Medication Request Social History Tobacco Use [...] on: 10/24/2018 03:52 PM Modules accepted: Orders VITY THERAPY TEACHER * Yan Weber RN - 10/24/2018 3:51 PM CST Rx sent as requested VITY THERAPY TEACHER * Aline Valencia MA - 10/24/2018 2:25 PM CST [facility] [place] called and stated that this patient is requesting a refill on her Singular. Her father last week and she cannot come in for an appt right now. VITY THERAPY TEACHER documented in this encounter Plan of Treatment Upcoming Encounters Date Type Department Care Team (Late st Contact Info) Description 11/14/2024 8:00 AM ACTIVITY THERAPY TEACHER Office Visit [facility] Multispecialty Care - [facility] 3 [facility], [address] [place] [phone] Yan Oliver NP 3 [facility] [address] [place] [address] 12/06/2024 9:30 AM ACTIVITY THERAPY TEACHER Appointment [facility] Open MRI [address] [place] [address] [place] [address] [facility] Darlene. [address] [place] [address] 03/02/2025 3:20 PM CDT Office Visit [facility] Family & Internal Medicine - [address] [phone] [place] [address] Leonila Colon[address] [place] [address] documented as of this encounter Visit Diagnoses Diagnosis Seasonal allergies- Primary Allergic rhinitis, cause unspecified documented in this encounter
--- OUTSIDE RECORDS SUMMARY | 2024-11-13 17:55 | XMS_ITS | Encounter Summary ---
Author Organization [facility] Address [address] [place] [address]. [place], [place] [address] [place] [address] Care Team Providers Care Test Lead Application Testing Name Role Phone Jaspreet Madsen MD Primary Care Provider U juan carlos Reason for Visit * Reason Comments Anxiety about the same. Encounter Details Date Type Department Care Team (Late st Contact Info) Description 05/01/2019 3:00 PM CDT Office Visit [facility] Family & Internal Medicine [address] [address] Jaspreet Madsen MD Anxiety (about [...] Master's degree (e.g., MA, MS, Howard, MEd, PLATE FINISHER, KEKE) 12/21/2018 Comments No Sex and Gender [...] twice a week., Disp: , Rfl: ??? 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 [address] [place] [address] 03/02/2025 3:20 PM CDT Office Visit [facility] Family & Internal Medicine - [place] [address] [place] [phone] [place] [address] [facility]. [address] [place] [address] documented as of this encounter Visit Diagnoses Diagnosis DURAN (generalized anxiety disorder)- Primary Generalized anxiety disorder Arthritis Arthropathy, unspecified, site unspecified documented in this encounter Additional Health Concerns Assessment Noted Time PHQ-9 Depression Total Score: 4 05/01/20 19 3:05 PM CDT documented as of this encounter Care Teams Test Lead Application Testing Relationship Specialty Start Date End Date Jaspreet Madsen MD PCP - General INTERNAL MEDICINE 11/30/18 02/18/23 documented as of this encounter
--- OUTSIDE RECORDS SUMMARY | 2024-11-13 17:55 | XMS_ITS | Encounter Summary ---
Author Organization [facility] Address [address] [place] [address]. [place], [place] [address] [place] [address] Care Team Providers Care Terminal Worker Name Role Phone Unavailable Primary Care Provider Unavailabl e Encounter Details Date Type Department Care Team (Latest Contact Info) Description 05/23/2018 Abstract [facility] Social History Tobacco Use [...] Chan Task Name: Call Back Assigned To: [facility] Dae Nurse Team Regarding Patient: Hans Pascual, Status: In Progress Comment: Argelia Chan - 23 May 2018 11:10 AM TASK CREATED Patient called and she said her Chute Feeder @ [facility] (Dr. Perez Cervantes) would like for her to have aCXR, and would like Dr. Mcnally to order. Because of her bronchitis. Patient states she is better, somewheezing. Has not taken her Embrel since 04/25/18l or methrotrexate since 05/04/18 and the rim technician does not want her to take until a CXR is done. [phone] to reach Letha. Montserrat Weber - 23 May 2018 11:45 AM TASK EDITED printed to discuss w/ Montserrat Hodges - 23 May 2018 2:42 PM TASK EDITED okay per Dr. Mcnally to order, order placed, pt. informed, v/u Signatures Electronically signed by : Montserrat Weber, ; May 23 2018 2:43PM HAND VIOLIN MAKER (Author) documented in this encounter Plan of Treatment Upcoming Encounters Date Type Department Care Team (Late st Contact Info) Description 11/14/2024 8:00 AM HAND VIOLIN MAKER Office Visit [facility] Multispecialty Care - [facility] 3 [facility], [address] [place] [phone] Montserrat Oliver NP 3 [facility] [address] [place] [address] 12/06/2024 9:30 AM HAND VIOLIN MAKER Appointment [facility] Open MRI [address] [place] [address] [place] [address] [facility]. [address] [place] [phone] 03/02/2025 3:20 PM CDT Office Visit [facility] Family & Internal Medicine - [address] [phone] [place] [address] [place] [address] documented as of this encounter Procedures Procedure [...] PASCUAL ? ADMIT/SERVICE DATE: 05/24/18 ?? ACCT: [id number] ?DISCHARGE DATE: ?? : 1965 ??SEX: F ?ORD SITE: [facility] ?? PT TYPE: REG CLI ? ORDERING MD: JASPREET MADSEN MD ? STUDY DATE ? REPORT # ?ORDER # ? EXT ORDER ID ?? 05/24/18 ? [id number] ? [id number] ?[id number] ? PROC CODE: ? CXR2V ? PROCEDURE [...] - 09/07/2018 HANS PASCUAL ADMIT/SERVICE DATE:05/24/18 ACCT: [id number] DISCHARGE DATE: : 1965 SEX: F ORD SITE: [facility] PT TYPE: REG CLI ORDERING MD:JASPREET MADSEN MD STUDY DATE REPORT # ORDER # EXT ORDER ID 05/24/18 [id number] PROC CODE: CXR2V PROCEDURE DESCRIPTION: XR CHEST [...]
--- OUTSIDE RECORDS SUMMARY | 2024-11-13 17:55 | XMS_ITS | Encounter Summary ---
Author Organization [facility] Address [address] [place] [address]. [place] [address] [place] [address] Care Team Providers Care Dumper Operator Name Role Phone Jaspreet Pearl MD Primary Care Provider Felipe rangel Encounter Details Date Type Department Care Team (Late st Contact Info) Description 12/23/2015 Abstract [facility] [address] [place] [address] [place] [address] [place] [address] Social History Tobacco Use Types Packs/Day Years [...] (Late Contact Info) Description 11/14/2024 8:00 AM DYE AND CHEMICAL COORDINATOR Office Visit [facility] Group Multispecialty Care - [facility] 3 [facility], [address] [place] [address] Montserrat Oliver NP 3 [facility] [address] [place] [address] 12/06/2024 9:30 AM DYE AND CHEMICAL COORDINATOR [facility] [address] [place] [address] [place] [address] [facility] D[facility]. [address] [place] [phone] 03/02/2025 3:20 PM CDT Office Visit [facility] Medical Group Family & Internal Medicine [facility] [address] [place] [address] [place] [address] [facility] [employer]. [address] [place] [address] documented as of this encounter Visit Diagnoses Diagnosis Osteoarthritis Osteoarthrosis, unspecified whether generalized or localized, unspecified site documented in this encounter Care Teams Dumper Operator Relationship Specialty Start Date End Date Jaspreet Pearl MD PCP - General INTERNAL MEDICINE 11/30/18 02/18/23 documented as of this encounter
--- OUTSIDE RECORDS SUMMARY | 2024-11-13 17:55 | XMS_ITS | Encounter Summary ---
Author Organization [facility] Address [address] [place] [address]. [place] [address] [place] [address] Care Team Providers Care Dials Supervisor Name Role Phone Unavailable Primary Care Provider Unavailabl e Encounter Details Date Type Department Care Team (Latest Contact Info) Description 03/23/2018 Abstract [facility] Medical Group Social History Tobacco Use Types [...] Info) Description 11/14/2024 8:00 AM ACCOUNTS RECEIVABLE ASSOCIATE Office Visit [facility] Medical [facility] Multispecialty Care - [facility] 3 [facility], [address] [place] [address] Montserrat Oliver, COOK SHORT ORDER 3 [facility] [address] [place] [address] 12/06/2024 9:30 AM ACCOUNTS RECEIVABLE ASSOCIATE Appointment [facility] Open MRI [address] [place] [address] [place] [address] [address] [place] [address] 03/02/2025 3:20 PM CDT Office Visit [facility] Medical Group Family & Internal Medicine - [place] [address] [place] [address] [place] [address] [facility]. [address] [place] [address] documented as of this encounter Visit Diagnoses Not on filedocumented in this encounter
--- OUTSIDE RECORDS SUMMARY | 2024-11-13 17:55 | XMS_ITS | Encounter Summary ---
Author Organization [facility] Address [address] [place] [address]. [place] [address] [place] [address] Care Team Providers Care Motor Block Mechanic Name Role Phone Unavailable Primary Care Provider Unavailabl e Encounter Details Date Type Department Care Team (Late st Contact Info) Description 12/23/2016 Abstract [facility] Family & Internal Medicine [facility] [address] [place] [address] Ben Barker MD [address] [address] Social History Tobacco Use Types [...] Comments Blood Pressure 102/58 12/23/2016 11:23 AM IT SUPPORT MANAGER Pulse 70 12/23/2016 11:23 AM IT SUPPORT MANAGER Temperature - - Respiratory Rate - - Oxygen Saturation - - Inhaled Oxygen Concentration - - Weight 73.5 kg (162 lb) 12/23/2016 11:23 AM IT SUPPORT MANAGER Height 170.2 cm (5' 7 ) 12/23/2016 11:23 AM IT SUPPORT MANAGER Body Mass Index 25.37 12/23/2016 11:23 AM IT SUPPORT MANAGER documented in this encounter Progress Notes [...] paste for oral ulcers. Encouraged use of ptuk-lsa-jnppbtr decongestants and mucolytics for symptom relief. Call [...] Tablet; TAKE 1 TABLET DAILY DIRECTED; Therapy: (Recorded:16Qmr3020) to Recorded Dispense: 0 Days ; #: Sufficient Tablet; Refill: 0; EMA = N; Record; Last Updated By: Yohana Rodriguez;06/26/2015 8:33:57 AM 2. Dicyclomine HCl - 20 MG Oral Tablet; TAKE 1 TABLET BY MOUTH EVERY 6 HOURS NEEDED; Therapy: 39Ius5037 to (Last Rx:40Mai5355) Requested for: 91Rhr9502 Ordered Rx By: Clement Young; Dispense: 0 Days ; #:40 Tablet; Refill: 0; For: Irritable bowel syndrome; EMA = N; Verified Transmission to [facility]; Last Updated By: Crystal Tafoya; 10/20/2016 11:59:59 AM 3. Enbrel 50 MG/ML Subcutaneous Solution Prefilled Syringe; INJECT 50MG ONCE A WEEK; Therapy: 33Lrd6253 to (Evaluate:76Ybh2083) Recorded Dispense: 28 Days ; #: Sufficient ML; Refill: 0; EMA = N; Record; Last Updated By: Yohana Rodriguez; 06/26/2015 8:33:57 AM 4. Folic Acid 1 MG Oral Tablet; TAKE 1 TABLET DAILY; Therapy: 06Qmj6433 to (Evaluate:07Ctf0296) Recorded Dispense: 30 Days ; #:30 Tablet; Refill: 3; EMA = Y; Record; Last Updated By: Lashaun Kathleen; 12/04/2014 2:26:01 PM 5. Methotrexate Sodium 1 GM Injection Solution Reconstituted; INJECT 0.8 ML Weekly; Therapy: 37Lqi0126 to Recorded Dispense: 0 Days ; #: [...] Multi-Vitamins TABS; TAKE 2 TABLET Daily; Therapy: (Recorded:77Utu1961) to Recorded Dispense: 0 Days ; #: Sufficient Tablet; Refill: 0; EMA = N; Record; Last Updated By: Yohana Rodriguez;06/26/2015 8:33:56 AM 8. Nabumetone 500 MG Oral Tablet; TAKE 2 TABLET TWICE DAILY; Therapy: 18Oct2015 to Recorded Dispense: 0 Days ; #: Sufficient Tablet; Refill: 0; For: Inflammatory arthritis; EMA = N; Record; Last Updated By: Yohana Rodriguez; 10/18/2015 8:38:42 AM 9. Combes-3 Complex 192-251-11 MG-MG-UNIT Oral Capsule; Take one cap daily; Therapy: (Recorded:04Dec2014) to Recorded Dispense: 0 Days ; #: Sufficient Capsule; Refill: 0; EMA = N; Record; Last Updated By: Lashaun Kathleen; 12/04/2014 2:26:00 PM 10. Premarin 0.625 MG/GM Vaginal Cream; Insert 0.5 gram 3 times weekly at hs; Therapy: 18Hsc7542 to (Evaluate:32Afj7746) Recorded Dispense: 0 Days ; #: Sufficient X 30 GM Tube; Refill: 0; EMA = N; Record; Last Updated By: Lashaun Kathleen; 12/04/2014 2:26:01 PM 11. TraMADol HCl - 50 MG Oral Tablet; Take one tab po BID prn; Therapy: 63Zzo7309 to (Last Rx:10Jmu4896) Ordered Rx By: Clement Young; Dispense: 0 Days ; #:60 Tablet; Refill: 0; For: Arthritis; EMA = N; Record; Last Updated By: Argelia Chan; 03/31/2016 5:12:18 PM Allergies 1. Levaquin TABS Recorded By: Tamie Cosby; 09/23/2012 2:04:37 PM Vitals Recorded: 56Yxe1645 11:23AM Temperature 98.3 F Heart Rate 70 [...] URI, acute; EMA = N; Sent To: School Admissions 3. Benzonatate 200 MG Oral Capsule; TAKE 1 CAPSULE 3 TIMES DAILY NEEDED FOR NON-PRODUCTIVE COUGH OR SORE THROAT Rx By: Ben Barker; Dispense: 0 Days ; #:20 Capsule; Refill: 0; For: Acute bronchitis, URI, acute; EMA = N; Sent To: School Admissions 4. Cheratussin AC 100-10 MG/5ML Oral Syrup; [...] For: Oral ulcer; EMA = N;Sent To: School Admissions DRINK PLENTY OF FLUIDS. MUCINEX-D FOR CONGESTION/SINUS PRESSURE/EAR PAIN. USE MEDICATIONS DIRECTED. CONSIDER TAKING PREDNISONE IN PLACE OF NABUMETONE FOR IMPROVED ANTIINFLAMMATION If symptoms worsen, or fail to improve in 72 hours, fill & start antibiotic. - CALL WITH ANY CONCERNS. Signatures Electronically signed by : Ben Barker M.D.; Jan 01 2017 7:35AM IT SUPPORT MANAGER (Author) documented in this encounter Plan of Treatment Upcoming Encounters Date Type Department Care Team (Late st Contact Info) Description 11/14/2024 8:00 AM IT SUPPORT MANAGER Office Visit [facility] 3 [facility], [address] [place] [phone] Montserrat Oliver NP 3 [facility] [address] [place] [address] 12/06/2024 9:30 AM IT SUPPORT MANAGER Appointment [facility] [address] [place] [address] [place] [address] [address] [place] [address] 03/02/2025 3:20 PM CDT Office Visit [facility] Family & Internal Medicine - [address] [address] [place] [address] [facility]. [address] [place] [address] documented as of this encounter Visit Diagnoses Not on filedocumented in this encounter
--- OUTSIDE RECORDS SUMMARY | 2024-11-13 17:55 | XMS_ITS | Encounter Summary ---
Author Organization [facility] Address [address] [place] [address]. [place], [place] [address] [place] [address] Care Team Providers Care Fancy Stitcher Name Role Phone Jaspreet Madsen MD Primary Care Provider U juan carlos Reason for Visit * Reason Comments Follow Up anxiety. she didn't take the meds that Dr. Solares gave her. Encounter Details Date Type Department Care Team (Late st Contact Info) Description 12/21/2018 4:00 PM ROUTE AIDE Office Visit [facility] Medical Group Family & Internal Medicine [address] [address] Jaspreet Madsen MD Follow Up [...] Master's degree (e.g., MA, MS, Howard, MEd, COMPRESSOR HOUSE OPERATOR, KEKE) 12/21/2018 Comments No Sex and [...] Comments Blood Pressure 120/70 12/21/2018 4:03 PM ROUTE AIDE Pulse 67 12/21/2018 4:03 PM ROUTE AIDE Temperature 36.7 ??C (98.1 ??F) 12/21/2018 4:03 PM CS T Respiratory Rate 18 12/21/2018 4:03 PM ROUTE AIDE Oxygen Saturation 98% 12/21/2018 4:03 PM ROUTE AIDE Inhaled Oxygen Concentration - - Weight 77.1 kg (170 lb) 12/21/2018 4:03 PM ROUTE AIDE Height 172.7 cm (5' 8 ) 12/21/2018 4:03 PM ROUTE AIDE Body Mass Index 25.85 12/21/2018 4:03 PM ROUTE AIDE documented in this encounter Progress Notes * [...] home, now her mother is moving from [facility] to live close to her in [place] that would be good for her but [...] twice a week., Disp: , Rfl: ??? RHP-FWN-Glhgtwl E (OMEGA-3 COMPLEX) 192-251-11 MG-MG-UNIT Cap, Take [...] Master's degree (e.g., MA, MS, Howard, MEd, COMPRESSOR HOUSE OPERATOR, KEKE) Social Needs ??? Financial resource [...] MONTH JASPREET MADSEN MD 12/21/2018 4:50 PM E AIDE documented in this encounter Plan of Treatment Upcoming Encounters Date Type Department Care Team (Late st Contact Info) Description 11/14/2024 8:00 AM ROUTE AIDE Office Visit [facility] Multispecialty Care - [address], [address] [place] [address] Montserrat Oliver NP [address] [place] [address] [place] [address] 12/06/2024 9:30 AM ROUTE AIDE Appointment [facility] Open MRI [address] [place] [address] [place] [address] [facility] [place] [phone] 03/02/2025 3:20 PM CDT Office Visit [facility] Family & Internal Medicine - [address] [phone] [place] [address] [facility]. [address] [place] [phone] documented as of this encounter Visit Diagnoses Diagnosis DURAN (generalized anxiety disorder)- Primary Generalized anxiety disorder Anxiety Anxiety state, unspecified Irritable bowel syndrome with both constipation and diarrhea Polyarthritis Unspecified polyarthropathy or polyarthritis, site unspecified documented in this encounter Care Teams Fancy Stitcher Relationship Specialty Start Date End Date Jaspreet Madsen MD PCP - General INTERNAL MEDICINE 11/30/18 02/18/23 documented as of this encounter
--- OUTSIDE RECORDS SUMMARY | 2024-11-13 17:55 | XMS_ITS | Encounter Summary ---
Author Organization [facility] Address [address] [place] [address]. [place] [address] [place] [address] Care Team Providers Care Spray Machine Loader Name Role Phone Unavailable Primary Care Provider Unavailabl e Encounter Details Date Type Department Care Team (Latest Contact Info) Description 08/02/2017 Abstract [facility] Medical Group Social History Tobacco Use Types [...] st Contact Info) Description 11/14/2024 8:00 AM PROOFER PREPRESS Office Visit [facility] Medical [facility] Multispecialty Care - [facility] 3 [facility], [address] [place] [address] Montserrat Oliver, DOCTOR PODIATRIC MEDICINE 3 [facility] [address] [place] [address] 12/06/2024 9:30 AM PROOFER PREPRESS Appointment [facility] Open MRI [address] [place] [address] [place] [address] [address] [place] [address] 03/02/2025 3:20 PM CDT Office Visit [facility] Medical Group Family & Internal Medicine - [place] [address] [place] [address] [place] [address] [facility]. [address] [place] [address] documented as of this encounter Visit Diagnoses Not on filedocumented in this encounter
--- OUTSIDE RECORDS SUMMARY | 2024-11-13 17:55 | XMS_ITS | Encounter Summary ---
Author Organization [facility] Address [address] [place] [address]. [place] [address] [place] [address] Care Team Providers Care Data Software Engineer Name Role Phone Jaspreet Pearl MD [...] (Late Contact Info) Description 11/14/2024 8:00 AM ADVERTISING SALES ASSOCIATE Office Visit [facility] Medical Group Multispecialty Care - [facility] 3 [facility], [address] [place] [address] Montserrat Oliver NP 3 [facility] [address] [place] [address] 12/06/2024 9:30 AM ADVERTISING SALES ASSOCIATE Appointment [facility] Open MRI [address] [facility] [place] [address] [place] [address] [address] [place] [address] 03/02/2025 3:20 PM CDT Office Visit [facility] Medical Group Family & Internal Medicine - [address] [address] [place] [address] [facility] [place] [address] documented as of this encounter Visit Diagnoses Not on filedocumented in this encounter Care Teams Data Software Engineer Relationship Specialty Start Date End Date Jaspreet Pearl MD PCP - General INTERNAL MEDICINE 11/30/18 02/18/23 documented as of this encounter
--- OUTSIDE RECORDS SUMMARY | 2024-11-13 17:55 | XMS_ITS | Encounter Summary ---
Author Organization [facility] Address [address] [place] [address]. [place] [address] [place] [address] Care Team Providers Care Homemaker Companion Name Role Phone Jaspreet Pearl MD Primary [...] degree (e.g., MA, MS, Howard, MEd, SALES PROMOTION REPRESENTATIVE, KEKE) 12/21/2018 Comments No Sex and [...] (Late Contact Info) Description 11/14/2024 8:00 AM RETINAL ANGIOGRAPHER Office Visit [facility] Medical Group Multispecialty Care - [facility] 3 [facility], [address] [place] [address] Montserrat Oliver, RIB CHOPPER [address] [facility] [address] [place] [address] 12/06/2024 9:30 AM RETINAL ANGIOGRAPHER Appointment [facility] Open MRI [address] [facility] [place] [address] [place] [address] [place] [address] 03/02/2025 3:20 PM CDT Office Visit [facility] Medical Group Family & Internal Medicine - [address] [address] [place] [address] [place] [address] documented as of this encounter Visit Diagnoses Not on filedocumented in this encounter Care Teams Homemaker Companion Relationship Specialty Start Date End Date Jaspreet Pearl MD PCP - General INTERNAL MEDICINE 11/30/18 02/18/23 documented as of this encounter
--- OUTSIDE RECORDS SUMMARY | 2024-11-13 17:55 | XMS_ITS | Encounter Summary ---
Author Organization [facility] Address [address] [place] [address]. [place], [place] [address] [place] [address] Care Team Providers Care Vibratory Pile Driver Name Role Phone Unavailable Primary Care Provider Unavailabl e Encounter Details Date Type Department Care Team (Latest Contact Info) Description 04/28/2016 Abstract [facility] Medical Group Social [...] Randolph Task Name: Renew Medication Assigned To: [facility] Nurse Team Regarding Patient: Hans Pascual, Status: Active Comment: Perla Randolph - 28 Apr 2016 1:14 PM TASK CREATED Caller: Elvira; Rec'd call from Elvira with [facility] in [place] requesting a refill of tramadol for pt. Elvira does state a request has been faxed to the office. Yohana Rodriguez - 28 Apr 2016 1:30 PM TASK EDITED Elvira at [facility] informed that per Dr Young the pt needs to be seen to discuss a need for the refill. We have not seen her since October and she was suppose to f/u after finishing PT andan ortho referral had been placed in January. Elvira stated that she will inform the pt Signatures Electronically signed by : Yohana Rodriguez R.N.; Apr 28 2016 1:30PM WELDING SUPERVISOR (Author) documented in this encounter Plan of Treatment Upcoming Encounters Date Type Department Care Team (Late st Contact Info) Description 11/14/2024 8:00 AM WELDING SUPERVISOR Office Visit [facility] Multispecialty Care - [facility] 3 [facility], [address] [place] [address] Montserrat Oliver NP 3 [facility] [address] [place] [address] 12/06/2024 9:30 AM WELDING SUPERVISOR Appointment [facility] Open MRI [address] [place] [address] [place] [address] [facility] [place] [address] 03/02/2025 3:20 PM CDT Office Visit [facility] Family & Internal Medicine - [address] [phone] [place] [address] [facility] [place] [address] documented as of this encounter Visit Diagnoses Not on filedocumented in this encounter
--- OUTSIDE RECORDS SUMMARY | 2024-11-13 17:55 | XMS_ITS | Encounter Summary ---
Author Organization [facility] Address [address] [place] [address]. [place] [address] [place] [address] Care Team Providers Care Tractor Trailer Moving Van Driver Name Role Phone Unavailable Primary Care Provider Unavailabl e Encounter Details Date Type Department Care Team (Latest Contact Info) Description 01/22/2017 Abstract [facility] Medical Group Social History Tobacco Use [...] st Contact Info) Description 11/14/2024 8:00 AM EDUCATIONAL THERAPIST Office Visit [facility] Medical [facility] Multispecialty Care - [facility] 3 [facility], [address] [place] [address] Montserrat Oliver, BULL DRIVER 3 [facility] [address] [place] [address] 12/06/2024 9:30 AM EDUCATIONAL THERAPIST Appointment [facility] Open MRI [address] [place] [address] [place] [address] [address] [place] [address] 03/02/2025 3:20 PM CDT Office Visit [facility] Medical Group Family & Internal Medicine - [place] [address] [place] [address] [place] [address] [facility]. [address] [place] [address] documented as of this encounter Procedures Procedure [...]
--- OUTSIDE RECORDS SUMMARY | 2024-11-13 17:55 | XMS_ITS | Encounter Summary ---
Author Organization [facility] Address [address] [place] [address]. [place] [address] [place] [address] Care Team Providers Care Branding Specialist Name Role Phone Jaspreet Pearl MD Primary Care Provider Felipe rangel Encounter Details Date Type Department Care Team (Late st Contact Info) Description 03/17/2018 Abstract [facility] [address] [place] [address] Jes Reid NP Social History Tobacco Use [...] st Contact Info) Description 11/14/2024 8:00 AM NEEDLEWORKER Office Visit [facility] Medical Group Multispecialty Care - [facility] 3 [facility], [address] [place] [address] Montserrat Oliver NP 3 [facility] [address] [place] [address] 12/06/2024 9:30 AM NEEDLEWORKER Appointment [facility] [address] [place] [address] [place] [address] [facility] [address]. [address] [place] [address] 03/02/2025 3:20 PM CDT Office Visit [facility] Medical Group Family & Internal Medicine [facility] [address] [place] [address] [place] [address] [facility]. [address] [place] [address] documented as of this encounter Procedures Procedure [...] (GROUP A) ISOLATED 03/20/2018 8:[address] [facility] THROAT SWAB / Unknown 03/17/2018 1:45 PM CDT 03/17/2018 5:27 PM CDT us Generic Conversion Md [facility] MICROBIOLOGY - GENERAL ORDERABLES Final Result [facility] [address] [place] [address], [place] [phone] [facility] [address] [place] [address], [place] [phone] documented in this encounter Visit Diagnoses Diagnosis Acute pharyngitis documented in this encounter Care Teams Branding Specialist Relationship Specialty Start Date End Date Jaspreet Pearl MD PCP - General INTERNAL MEDICINE 11/30/18 02/18/23 documented as of this encounter
--- OUTSIDE RECORDS SUMMARY | 2024-11-13 17:55 | XMS_ITS | Encounter Summary ---
Author Organization [facility] Address [address] [place] [address]. [place] [address] [place] [address] Care Team Providers Care Certified Activities Director Name Role Phone Unavailable Primary Care Provider Unavailabl e Encounter Details Date Type Department Care Team (Latest Contact Info) Description 08/03/2016 Abstract [facility] [...] st Contact Info) Description 11/14/2024 8:00 AM SEISMOLOGY TEACHER Office Visit [facility] Medical [facility] Multispecialty Care - [facility] 3 [facility], [address] [place] [address] Montserrat Oliver, MANAGER OF ENGINEERING 3 [facility] [address] [place] [address] 12/06/2024 9:30 AM SEISMOLOGY TEACHER Appointment [facility] Open MRI [address] [place] [address] [place] [address] [address] [place] [address] 03/02/2025 3:20 PM CDT Office Visit [facility] Medical Group Family & Internal Medicine - [place] [address] [place] [address] [place] [address] [facility]. [address] [place] [address] documented as of this encounter Visit Diagnoses Not on filedocumented in this encounter
--- OUTSIDE RECORDS SUMMARY | 2024-11-13 17:55 | XMS_ITS | Encounter Summary ---
Author Organization [facility] Address [address] [place] [address]. [place] [address] [place] [address] Care Team Providers Care Exit Booth Agent Name Role Phone Jaspreet Pearl MD Primary Care Provider Felipe archerelijah Encounter Details Date Type Department Care Team (Late st Contact Info) Description 06/23/2018 Abstract [facility] Diagnostic Imaging [address] [place] [address] Stalin Calderón MD [address] [address] Social History Tobacco Use Types Packs/Day Years [...] st Contact Info) Description 11/14/2024 8:00 AM DIETARY AIDE COOK Office Visit [facility] Medical Group Multispecialty Care - [facility] 3 [facility], [address] [place] [address] Montsrerat Oliver NP 3 [facility] [address] [place] [address] 12/06/2024 9:30 AM DIETARY AIDE COOK Appointment [facility] [address] [place] [address] [place] [address] [facility]. [address] [place], [place] [phone] 03/02/2025 3:20 PM CDT Office Visit [facility] Medical Group Family & Internal Medicine - [place] [address] [place] [address] [place] [address] [facility] [place]. [address] [place] [address] documented as of this encounter Visit Diagnoses Diagnosis Encounter for screening mammogram for malignant neoplasm of breast Other screening mammogram documented in this encounter Care Teams Exit Booth Agent Relationship Specialty Start Date End Date Jaspreet Pearl MD PCP - General INTERNAL MEDICINE 11/30/18 02/18/23 documented as of this encounter
--- OUTSIDE RECORDS SUMMARY | 2024-11-13 17:55 | XMS_ITS | Encounter Summary ---
Author Organization [facility] Address [address] [place] [address]. [place] [address] [place] [address] Care Team Providers Care Ruffler Name Role Phone Jaspreet Pearl MD Primary Care Provider Felipe archerelijah Encounter Details Date Type Department Care Team (Late st Contact Info) Description 06/22/2017 Abstract [facility] Diagnostic Imaging [address] [place] [address] Stalin Calderón MD [address] [id number] Social History Tobacco Use Types Packs/Day Years [...] st Contact Info) Description 11/14/2024 8:00 AM CENTRAL STORES ATTENDANT Office Visit [facility] Medical Group Multispecialty Care - [facility] 3 [facility], [address] [place] [address] Montserrat Oliver NP 3 [facility] [address] [place] [address] 12/06/2024 9:30 AM CENTRAL STORES ATTENDANT Appointment [facility] [address] [place] [address] [place] [address] [facility] [address]. [address] [place], [place] [phone] 03/02/2025 3:20 PM CDT Office Visit [facility] Medical Group Family & Internal Medicine - [place] [address] [place] [address] [place] [address] [facility] Family[facility]e. [address] [place] [address] documented as of this encounter Visit Diagnoses Diagnosis Encounter for screening mammogram for malignant neoplasm of breast Other screening mammogram documented in this encounter Care Teams Ruffler Relationship Specialty Start Date End Date Jaspreet Pearl MD PCP - General INTERNAL MEDICINE 11/30/18 02/18/23 documented as of this encounter
--- OUTSIDE RECORDS SUMMARY | 2024-11-13 17:55 | XMS_ITS | Encounter Summary ---
Author Organization [facility] Address [address] [place] [address]. [place] [address] [place] [address] Care Team Providers Care Saute Chef Name Role Phone Unavailable Primary Care Provider Unavailabl e Encounter Details Date Type Department Care Team (Latest Contact Info) Description 08/08/2018 Scan [facility] Medical [facility] Jaspreet Pearl MD Social History Tobacco Use [...] st Contact Info) Description 11/14/2024 8:00 AM SALESFORCE SPECIALIST Office Visit [facility] Multispecialty Care - [facility] 3 [facility], [address] [place] [address] Montserrat Oliver NP 3 [facility] [address] [place] [address] 12/06/2024 9:30 AM SALESFORCE SPECIALIST Appointment [facility] Open MRI [address] [place] [address] [place] [address] [address] [place] [phone] 03/02/2025 3:20 PM CDT Office Visit [facility] Medical Group Family & Internal Medicine - [place] [address] [place] [address] [place] [address] [facility]. [address] [place] [address] documented as of this encounter Visit Diagnoses Not on filedocumented in this encounter
--- OUTSIDE RECORDS SUMMARY | 2024-11-13 17:55 | XMS_ITS | Encounter Summary ---
Author Organization [facility] Address [address] [place] [address]. [place], [place] [address] [place] [address] Care Team Providers Care Hazmat Cdl A Driver Name Role Phone Jaspreet Pearl MD [...] st Contact Info) Description 11/30/2018 3:40 PM STORAGE MANAGER Office Visit [facility] Medical Group Family & Internal Medicine [address] [address] Jazmín Baldwin MD Anxiety [...] Comments Blood Pressure 118/68 11/30/2018 3:48 PM STORAGE MANAGER Pulse 70 11/30/2018 3:48 PM STORAGE MANAGER Temperature 36.7 ??C (98 ??F) 11/30/2018 3:48 PM STORAGE MANAGER Respiratory Rate 22 11/30/2018 3:48 PM STORAGE MANAGER Oxygen Saturation 97% 11/30/2018 3:48 PM STORAGE MANAGER Inhaled Oxygen Concentration - - Weight 77.1 kg (170 lb) 11/30/2018 3:48 PM STORAGE MANAGER Height - - Body Mass Index 26.63 05/26/2018 2:08 PM CDT documented in this encounter Patient Instructions * Patient Instructions* Jazmín Baldwin MD - 11/30/2018 3:40 PM STORAGE MANAGER [facility] AGE MANAGER documented in this encounter Progress Notes * Jazmín Baldwin MD - 11/30/2018 4:44 PM CSTAssociated Problem(s): DURAN (generalized anxiety disorder) Discussed starting a SSRI or SNRI and very anxious about the side effects. Discussed buspar and is willing to try that. Would also like to try talking with a therapist AGE MANAGER * Jazmín Baldwin MD - 11/30/2018 3:40 [...] twice a week., Disp: , Rfl: ??? AVO-RHQ-Raadhyl E (OMEGA-3 COMPLEX) 192-251-11 MG-MG-UNIT Cap, Take [...] daily as needed., Disp: , Rfl: ??? L[place] 3 1200 MG Cap, Take 1,200 mg [...] Name given for therapist JAZMÍN BALDWIN MD AGE MANAGER documented in this encounter Plan of Treatment Upcoming Encounters Date Type Department Care Team (Late st Contact Info) Description 11/14/2024 8:00 AM STORAGE MANAGER Office Visit [facility] Multispecialty Care - [facility] 3 [facility], [address] [place] [address] Montserrat Oliver NP 3 [facility] [address] [place] [address] 12/06/2024 9:30 AM STORAGE MANAGER Appointment [facility] [address] [place] [address] [place] [address] [facility] Lazaroe. [address] [place] [address] 03/02/2025 3:20 PM CDT Office Visit [facility] Family & Internal Medicine - [address] [phone] [place] [address] [facility] Z[facility]e. [address] [place] [phone] documented as of this encounter Visit Diagnoses Diagnosis DURAN (generalized anxiety disorder)- Primary Generalized anxiety disorder documented in this encounter Care Teams Hazmat Cdl A Driver Relationship Specialty Start Date End Date Jaspreet Pearl MD PCP - General INTERNAL MEDICINE 11/30/18 02/18/23 documented as of this encounter
--- OUTSIDE RECORDS SUMMARY | 2024-11-13 17:55 | XMS_ITS | Encounter Summary ---
Author Organization [facility] Address [address] [place] [address]. [place] [address] [place] [address] Care Team Providers Care Water Fabricator Operator Name Role Phone Unavailable Primary Care Provider Unavailabl e Encounter Details Date Type Department Care Team (Latest Contact Info) Description 06/23/2018 Abstract [facility] , Kings Nunez MD Social [...] st Contact Info) Description 11/14/2024 8:00 AM FILENET ADMIN Office Visit [facility] Multispecialty Care - [facility] 3 [facility], [address] [place] [address] Montserrat Oliver NP 3 [facility] [address] [place] [address] 12/06/2024 9:30 AM FILENET ADMIN Appointment [facility] Open MRI [address] [place] [address] [place] [address] [address] [place] [address] 03/02/2025 3:20 PM CDT Office Visit [facility] Medical Group Family & Internal Medicine - [place] [address] [place] [address] [place] [address] [facility]. [address] [place] [address] documented as of this encounter Visit Diagnoses Not on filedocumented in this encounter
--- OUTSIDE RECORDS SUMMARY | 2024-11-13 17:55 | XMS_ITS | Encounter Summary ---
Author Organization [facility] Address [address] [place] [address]. [place] [address] [place] [address] Care Team Providers Care Rush Seater Name Role Phone Unavailable Primary Care Provider Unavailabl e Encounter Details Date Type Department Care Team (Latest Contact Info) Description 12/24/2015 Abstract [facility] [place] [address] [place], [place] [phone] Social History Tobacco Use Types Packs/Day Years [...] st Contact Info) Description 11/14/2024 8:00 AM SOLUTIONS MARKET CONSULTANT Office Visit [facility] Mult[facility]pec[facility]ty Care - [facility] 3 [facility], [address] [place] [phone] Montserrat Oliver NP 3 [facility] [address] [place] [address] 12/06/2024 9:30 AM SOLUTIONS MARKET CONSULTANT Appointment [facility] Open MRI [address] [place] [address] [place] [address] [address] [place] [address] 03/02/2025 3:20 PM CDT Office Visit [facility] Medical Group Family & Internal Medicine - [place] [address] [place] [address] [place] [address] [facility] [address] [address] [place] [address] documented as of this encounter Visit Diagnoses Not on filedocumented in this encounter
--- OUTSIDE RECORDS SUMMARY | 2024-11-13 17:55 | XMS_ITS | Encounter Summary ---
Author Organization [facility] Address [address] [place] [address]. [place], [place] [address] [place] [address] Care Team Providers Care Test Engine Evaluator Name Role Phone Jaspreet Pearl MD Primary Care Provider Felipe archerelijah Encounter Details Date Type Department Care Team (Late st Contact Info) Description 01/06/2019 Orders Only [facility] Medical Group Family & Internal Medicine - [place] [address] [place] [address] Bailee Rangel APNP [address] [facility] [address] [place], [place] [phone] Social History Tobacco Use Types Packs/Day Years [...] Master's degree (e.g., MA, MS, Howard, MEd, PET FEEDER, KEKE) 12/21/2018 Comments No Sex and Gender [...] harvey Rangel to send in prophylactic tamiflu. IGURATION MANAGEMENT ADVISOR documented in this encounter Plan of Treatment Upcoming Encounters Date Type Department Care Team (Late st Contact Info) Description 11/14/2024 8:00 AM CONFIGURATION MANAGEMENT ADVISOR Office Visit [facility] Multispecialty Care - [facility] 3 [facility], [address] [place] [address] Montserrat Oliver NP 3 [facility] [address] [place] [address] 12/06/2024 9:30 AM CONFIGURATION MANAGEMENT ADVISOR Appointment [facility] Open MRI [address] [place] [address] [place] [address] [facility]. [address] [place] [address] 03/02/2025 3:20 PM CDT Office Visit [facility] Family & Internal Medicine - [address] [phone] [place] [address] [facility] Technologiesjerrell. [address] [place] [address] documented as of this encounter Visit Diagnoses Diagnosis Exposure to influenza- Primary Contact with or exposure to other viral diseases documented in this encounter Care Teams Test Engine Evaluator Relationship Specialty Start Date End Date Jaspreet Pearl MD PCP - General INTERNAL MEDICINE 11/30/18 02/18/23 documented as of this encounter
--- OUTSIDE RECORDS SUMMARY | 2024-11-13 17:55 | XMS_ITS | Encounter Summary ---
Author Organization [facility] Address [address] [place] [address]. [place] [address] [place] [address] Care Team Providers Care Color Mixer Name Role Phone Unavailable Primary Care Provider Unavailabl e Encounter Details Date Type Department Care Team (Late Contact Info) Description 03/23/2017 Abstract [facility] Family & Internal Medicine - [address] [address] García Hess MD [address] [place] [phone] Social History Tobacco Use Types Packs/Day Years [...] (Late Contact Info) Description 11/14/2024 8:00 AM STEAM POWERPLANT SUPERVISOR Office Visit [facility] Multispecialty Care - [facility] 3 [facility], [address] [place] [address] Montserrat Oliver NP 3 [facility] [address] [place] [address] 12/06/2024 9:30 AM STEAM POWERPLANT SUPERVISOR Appointment [facility] Open MRI [address] [place] [address] [place] [address] [address] [place] [address] 03/02/2025 3:20 PM CDT Office Visit [facility] Medical Group Family & Internal Medicine - [address] [address] [place] [address] [address] [place] [address] documented as of this encounter Visit Diagnoses Not on filedocumented in this encounter
--- OUTSIDE RECORDS SUMMARY | 2024-11-13 17:55 | XMS_ITS | Encounter Summary ---
Author Organization [facility] Address [address] [place] [address]. [place] [address] [place] [address] Care Team Providers Care Tourist Information Officer Name Role Phone Unavailable Primary Care Provider Unavailabl e Encounter Details Date Type Department Care Team (Late st Contact Info) Description 05/26/2018 Abstract [facility] Medical Group Family & Internal Medicine [address] [address] Jaspreet Madsen MD Social History [...] XR CHEST 2 VIEW ( Routine ) [id number] 10:09AM Jaspreet Madsen Test Name Result Flag Reference XR CHEST 2 VIEW (Report) HANS PASCUAL ADMIT/SERVICE DATE: 05/24/18 ACCT: [id number] DISCHARGE DATE: : 1965 SEX: F ORD SITE: [facility] PT TYPE: REG CLI ORDERING MD: JASPREET MADSEN MD STUDY DATE REPORT # ORDER # EXT ORDER ID 05/24/18 [id number] PROC CODE: CXR2V PROCEDURE DESCRIPTION: XR CHEST [...] that. She has been talking with the professional development manager. Other than, everything looks pretty good. She also has history of irritable bowel syndrome and some type of inflammatory arthritis for which she sees the professional development manager. Review of Systems See HPI for pertinent [...] No illicit drug use ?? 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 ALPRAZolam 0.25 MG Oral Tablet; Take 1 tablet daily; Therapy: 78Sgp1651 to (Evaluate:08Ejj8782); Last Rx:[id number] Ordered Rx By: Jaspreet Madsen; Dispense: 30 Days ; #:30 Tablet; Refill: 0; For: Anxiety; EMA = N; Print Rx 2. Benzonatate 200 MG Oral Capsule; TAKE 1 CAPSULE 3 TIMES DAILY NEEDED; Therapy: 29Apr2018 to (Evaluate:74Ikr7137) Requested for: 76Xuk6317; Last Rx:[id number] Ordered Rx By: Jaspreet Madsen; Dispense: 10 Days ; #:30 Capsule; Refill: 0; For: Cough in adult; EMA =N; Verified Transmission to [facility] Last Updated By: [employer]; 05/26/2018 2:11:58 PM 3. Dicyclomine HCl - 20 MG Oral Tablet; TAKE 1 TABLET BY MOUTH EVERY 6 HOURS NEEDED; Therapy: 12Gdu2443 to (Evaluate:33Axe6185) Requested for: 51Ndz4358; Last Rx:[id number] Ordered Rx By: Ariane Solares; Dispense: 30 Days ; #:120 Tablet; Refill: 2; For: Irritable bowel syndrome; EMA= N; Verified Transmission to [facility] Last Updated By: [employer]; 02/28/20188:24:37 AM 4. Enbrel 50 MG/ML Subcutaneous Solution Prefilled Syringe; INJECT 50MG ONCE A WEEK; Therapy: 53Cpo8517 to (Evaluate:74Auk9137) Recorded Dispense: 28 Days ; #: Sufficient ML; Refill: 0; For: Inflammatory arthritis; EMA = N; Record; LastUpdated By: Argelia Chan; 02/23/2017 2:22:47 PM 5. Folic Acid 1 MG Oral Tablet; TAKE 1 TABLET DAILY; Therapy: 54Aan6815 to (Evaluate:42Fkg8149) Recorded Dispense: 30 Days ; #:30 Tablet; [...] LIQUID AND DRINK ONCE DAILY. prn; Therapy: (Recorded:94Pfu9835) to Recorded Dispense: 15 Days ; #:15 Packet; Refill: 0; For: Irritable bowel syndrome; EMA = N; Record; Last Updated By: Sherin Abdi; 03/17/2018 1:27:46 PM 8. Montelukast Sodium 10 MG Oral Tablet; TAKE 1 TABLET IN THE EVENING; Therapy: 29Apr2018 to (Evaluate:27Aug2018) Requested for: 29Apr2018; Last Rx:29Apr2018 Ordered Rx By: Jaspreet Madsen; Dispense: 30 Days ; #:30 Tablet; Refill: 3; For: Cough in adult; EMA = N; Verified Transmission to [facility] Last Updated By: Crystal Tafoya; 04/29/2018 8:21:16 AM 9. Multi-Vitamins TABS; TAKE 2 TABLET Daily; Therapy: (Recorded:50Vcf9295) to Recorded Dispense: 0 Days ; #: Sufficient Tablet; Refill: 0; For: Health Maintenance; EMA = N; Record; Last Updated By: Bianca [place]; 05/26/2018 2:15:07 PM 10. Nabumetone 500 MG Oral Tablet; TAKE 2 TABLET TWICE DAILY; Therapy: 60Vcm1372 to Recorded Dispense: 0 Days ; #: Sufficient Tablet; Refill: 0; For: Inflammatory arthritis; EMA = N; Record; Last Updated By: Yohana Rodriguez; 10/18/2015 8:38:42 AM 11. Almena-3 Complex 192-251-11 MG-MG-UNIT Oral Capsule; Take one cap daily; Therapy: (Recorded:62Ajd9865) to Recorded Dispense: 0 Days ; #: Sufficient Capsule; Refill: 0; For: Health Maintenance; EMA = N; Record; LastUpdated By: Bianca [place]; 05/26/2018 2:15:07 PM 12. Premarin 0.625 MG/GM Vaginal Cream; Insert 0.5 gram 3 times weekly at hs; Therapy: 50Wid7314 to (Evaluate:39Irf7135) Recorded Dispense: 0 Days ; #: Sufficient X 30 GM Tube; Refill: 0; For: Health Maintenance; EMA = N; Record;Last Updated By: Bianca Thornton; 05/26/2018 2:15:08 PM 13. ProAir RespiClick 108 (90 Base) MCG/ACT Inhalation Aerosol Powder Breath Activated; INHALE 2 PUFFS 4 times daily PRN; Therapy: 48Gpn3099 to (Last Rx:75Jkj4250) Requested for: 52Jpv1743 Ordered Rx By: Jaspreet Madsen; Dispense: 0 Days ; #:1 Inhaler; Refill: 0; For: Allergic rhinitis; EMA = N; Verified Transmission to [employer] Last Updated By: Crystal Tafoya; 05/26/2018 2:41:46 PM 14. Symbicort 80-4.5 MCG/ACT Inhalation Aerosol; INHALE 2 PUFFS TWICE DAILY - RINSE MOUTH AFTER USE; Therapy: 66Mtt5219 to (Last Rx:80Tql3230) Ordered Rx By: Jaspreet Madsen; Dispense: 0 [...] (Report) HANS PASCUAL ADMIT/SERVICE DATE: 05/24/18 ACCT: [id number] DISCHARGE DATE: : 1965 SEX: F ORD SITE: [facility] PT TYPE: REG CLI ORDERING MD: JASPREET MADSEN MD STUDY DATE REPORT # ORDER # EXT ORDER ID 05/24/18 [id number] PROC CODE: CXR2V PROCEDURE DESCRIPTION: XR CHEST [...] rhinitis; EMA = N; Verified Transmission to [facility]; Last Updated By: [employer]; 05/26/2018 2:41:46 PM Cough in adult 2. Symbicort 80-4.5 MCG/ACT Inhalation Aerosol; INHALE 2 PUFFS TWICE DAILY - RINSE MOUTH AFTER USE Rx By: Jaspreet Madsen; Dispense: 0 Days ; #:1 X 10.2 GM Inhaler; Refill: 2; For: Cough in adult; EMA = N; Verified Transmission to [facility]; Last Updated By: [employer]; 05/26/2018 2:41:45 PM Discussion/Summary Initially, thought rhinitis, seasonal allergies, so she will continue with those medications as shestill has a little bit of nasal congestion. Encouraged her to get [id number] Nasonex or Flonase. Continue the singular and she is going to be going to [place] to visit one of her kids again. [...] Jaspreet Madsen M.D.; May 28 2018 2:44PM STRAW HAT BRUSHER (Author) documented in this encounter Plan of Treatment Upcoming Encounters Date Type Department Care Team (Late st Contact Info) Description 11/14/2024 8:00 AM STRAW HAT BRUSHER Office Visit [facility] Multispecialty Care - [facility] 3 [facility], [address] [facility] [place] [address] Montserrat Oliver NP 3 [facility] [address] [place] [address] 12/06/2024 9:30 AM STRAW HAT BRUSHER Appointment [facility] Open MRI [address] [place] [address] [place] [address] [address] [place] [address] 03/02/2025 3:20 PM CDT Office Visit [facility] Family & Internal Medicine - [address] [phone] [place] [address] [address] [place] [address] documented as of this encounter Visit Diagnoses Not on filedocumented in this encounter
--- OUTSIDE RECORDS SUMMARY | 2024-11-13 17:55 | XMS_ITS | Encounter Summary ---
Author Organization [facility] Address [address] [place] [address]. [place] [address] [place] [address] Care Team Providers Care Internet Network Specialist Name Role Phone Jaspreet Pearl MD Primary Care Provider Felipe juan carlos Encounter Details Date Type Department Care Team (Late st Contact Info) Description 05/24/2018 Abstract [facility] Diagnostic Imaging [address] [place] [address] Jaspreet Pearl MD Social History Tobacco Use [...] st Contact Info) Description 11/14/2024 8:00 AM ATTORNEY AT LAW Office Visit [facility] Multispecialty Care - [facility] 3 [facility], [address] [place] [address] Montserrat Oliver NP 3 [facility] [address] [place] [address] 12/06/2024 9:30 AM ATTORNEY AT LAW Appointment [facility] Open MRI [address] [place] [address] [place] [address] [address] [place] [id number] 03/02/2025 3:20 PM CDT Office Visit [facility] Medical Group Family & Internal Medicine - [address] [address] [place] [address] [address] [place] [address] documented as of this encounter Visit Diagnoses Diagnosis Acute bronchitis documented in this encounter Care Teams Internet Network Specialist Relationship Specialty Start Date End Date Jaspreet Pearl MD PCP - General INTERNAL MEDICINE 11/30/18 02/18/23 documented as of this encounter
--- OUTSIDE RECORDS SUMMARY | 2024-11-13 17:55 | XMS_ITS | Encounter Summary ---
Author Organization [facility] Address [address] [place] [address]. [place] [address] [place] [address] Care Team Providers Care Boiler Mechanic Name Role Phone Unavailable Primary Care Provider Unavailabl e Encounter Details Date Type Department Care Team (Latest Contact Info) Description 01/30/2016 Abstract [facility] [place] [address] [address] [place], [place] [phone] Social History Tobacco Use Types Packs/Day Years [...] Contact Info) Description 11/14/2024 8:00 AM GERIATRIC SOCIAL WORK PROFESSOR Office Visit [facility] Multispecialty Care - [facility] 3 [facility], [address] [place] [address] Montserrat Oliver NP 3 [facility] [address] [place] [address] 12/06/2024 9:30 AM GERIATRIC SOCIAL WORK PROFESSOR Appointment [facility] Open MRI [address] [facility] [place] [address] [place] [address] [address] [place] [address] 03/02/2025 3:20 PM CDT Office Visit [facility] Medical Group Family & Internal Medicine - [place] [address] [place] [address] [place] [address] [facility]. [address] [place] [address] documented as of this encounter Visit Diagnoses Not on filedocumented in this encounter
--- OUTSIDE RECORDS SUMMARY | 2024-11-13 17:55 | XMS_ITS | Encounter Summary ---
Author Organization [facility] Address [address] [place] [address]. [place] [address] [place] [address] Care Team Providers Care Sheriff'S Detective Name Role Phone Unavailable Primary Care Provider Unavailabl e Encounter Details Date Type Department Care Team (Latest Contact Info) Description 06/15/2016 Abstract [facility] Medical Group Social History Tobacco Use Types [...] st Contact Info) Description 11/14/2024 8:00 AM TERRAZZO WORKER Office Visit [facility] Medical [facility] Multispecialty Care - [facility] 3 [facility], [address] [place] [address] Montserrat Oliver, FLIGHT HOSTESS 3 [facility] [address] [place] [address] 12/06/2024 9:30 AM TERRAZZO WORKER Appointment [facility] Open MRI [address] [place] [address] [place] [address] [address] [place] [address] 03/02/2025 3:20 PM CDT Office Visit [facility] Medical Group Family & Internal Medicine - [place] [address] [place] [address] [place] [address] [facility]. [address] [place] [address] documented as of this encounter Visit Diagnoses Not on filedocumented in this encounter
--- OUTSIDE RECORDS SUMMARY | 2024-11-13 17:55 | XMS_ITS | Encounter Summary ---
Author Organization [facility] Address [address] [place] [address]. [place], [place] [address] [place] [address] Care Team Providers Care Automatic Embroidery Machine Tender Name Role Phone Jaspreet Pearl MD Primary Care Provider U Kelsye Dey NP Primary Care Provider [phone] Dayanara Plaza MD Primary Care Provider [phone] Perez Cervantes MD Unavailable Adriana Ma MD Unavailable [phone] Encounter Details Date Type Department Care Team (Late st Contact Info) Description 02/26/2019 Global[employer] Message Enc [facility] Medical Group Family & Internal Medicine [address] [address] Jaspreet Pearl MD RE: Medication [...] Master's degree (e.g., MA, MS, Howard, MEd, SECOND VP HR ASSESSMENT, KEKE) 12/21/2018 Comments No Sex and Gender [...] st Contact Info) Description 11/14/2024 8:00 AM EQUIPMENT OPERAT0R Office Visit [facility] Multispecialty Care - [facility] 3 [facility], [address] [place] [address] Montserrat Oliver NP 3 [facility] [address] [place] [address] 12/06/2024 9:30 AM EQUIPMENT OPERAT0R Appointment [facility] MRI [address] [place] [address] [place] [address] [place] [address] 03/02/2025 3:20 PM CDT Office Visit [facility] Family & Internal Medicine - [address] [phone] [place] [address] [facility] [address] [place] [address] documented as of this encounter Visit Diagnoses Not on filedocumented in this encounter Additional Health Concerns Infection Onset Date Last Indicated Resolved Time COVID-19 Rule Out 03/14/2021 03/14/2021 03/15/2021 1:26 PM CDT COVID-19 Rule Out 04/03/2024 04/03/2024 04/03/2024 11:38 AM CDT documented as of this encounter Care Teams Automatic Embroidery Machine Tender Relationship Specialty Start Date End Date Jaspreet Pearl MD PCP - General INTERNAL MEDICINE 11/30/18 02/18/[place] [address] [address] [place] [address] PCP - General Nurse Practitioner Family 02/19/23 02/28/23 [place] [address] [address] [place] [address] PCP - General FAMILY PRACTICE 03/01/23 Perez Cervantes MD [address] [place] [phone] RHEUMATOLOGY 09/02/23 Adriana Ma MD [address] [place] [phone] Referring Physician ALLERGY 09/02/23 documented as of this encounter
--- OUTSIDE RECORDS SUMMARY | 2024-11-13 17:55 | XMS_ITS | Encounter Summary ---
Author Organization [facility] Address [address] [place] [address]. [place] [address] [place] [address] Care Team Providers Care Truck Driver Flatbed Name Role Phone Unavailable Primary Care Provider Unavailabl e Encounter Details Date Type Department Care Team (Late st Contact Info) Description 02/09/2017 Abstract [facility] Medical Group Family & Internal Medicine [address] [address] García Hess MD [address] [place] [address] Social History Tobacco Use Types Packs/Day Years [...] Tablet; TAKE 1 TABLET DAILY DIRECTED; Therapy: (Recorded:05Zoj9065) to Recorded Dispense: 0 Days ; #: Sufficient Tablet; Refill: 0; EMA = N; Record; Last Updated By: Yohana Rodriguez;06/26/2015 8:33:57 AM 2. Dicyclomine HCl - 20 MG Oral Tablet; TAKE 1 TABLET BY MOUTH EVERY 6 HOURS NEEDED; Therapy: 64Qjk9888 to (Last Rx:89Zqm3262) Requested for: 04Feb2017; Status: ACTIVE - Renewal Denied Ordered Rx By: Clement Young; Dispense: 0 Days ; #:40 Tablet; Refill: 0; For: Irritable bowel syndrome; EMA = N; Verified Transmission to [facility] Last Updated By: Crystal Tafoya; 02/04/2017 4:49:52 PM 3. Enbrel 50 MG/ML Subcutaneous Solution Prefilled Syringe; INJECT 50MG ONCE A WEEK; Therapy: 79Arg6516 to (Evaluate:06Kxj3692) Recorded Dispense: 28 Days ; #: Sufficient ML; Refill: 0; EMA = N; Record; Last Updated By: Yohana Rodriguez; 06/26/2015 8:33:57 AM 4. Folic Acid 1 MG Oral Tablet; TAKE 1 TABLET DAILY; Therapy: 80Whp1537 to (Evaluate:10Nfl8220) Recorded Dispense: 30 Days ; #:30 Tablet; [...] Multi-Vitamins TABS; TAKE 2 TABLET Daily; Therapy: (Recorded:92Yaz9620) to Recorded Dispense: 0 Days ; #: Sufficient Tablet; Refill: 0; EMA = N; Record; Last Updated By: Yohana Rodriguez;06/26/2015 8:33:56 AM 8. Nabumetone 500 MG Oral Tablet; TAKE 2 TABLET TWICE DAILY; Therapy: 90Vfw3407 to Recorded Dispense: 0 Days ; #: Sufficient Tablet; Refill: 0; For: Inflammatory arthritis; EMA = N; Record; Last Updated By: Yohana Rodriguez; 10/18/2015 8:38:42 AM 9. [place]-3 Complex 192-251-11 MG-MG-UNIT Oral Capsule; Take one cap daily; Therapy: (Recorded:04Dec2014) to Recorded Dispense: 0 Days ; #: Sufficient Capsule; Refill: 0; EMA = N; Record; Last Updated By: Lashaun Kathleen; 12/04/2014 2:26:00 PM 10. Premarin 0.625 MG/GM Vaginal Cream; Insert 0.5 gram 3 times weekly at hs; Therapy: 02Aug2014 to (Evaluate:07Sph6038) Recorded Dispense: 0 Days ; #: Sufficient [...] right; Ordered By: García Hess Performed: Due: 69Idj4897 Discussion/Summary 1. Right calf strain. Likely high grade strain. Boone kick, sharp pull in back of leg. Symptoms are more in mid muscle belly. No appreciable Achilles defect noted. Discussed options, will place in boot, activity as tolerates, OTC analgesics. monitor symptoms. Fu 2 weeks, sooner if needed. Discussed warning signs and symptoms . Signatures Electronically signed by : García Hess M.D.; Feb 09 2017 5:00PM RABBLE FURNACE TENDER (Author) documented in this encounter Plan of Treatment Upcoming Encounters Date Type Department Care Team (Late st Contact Info) Description 11/14/2024 8:00 AM RABBLE FURNACE TENDER Office Visit [facility] Multispecialty Care - [facility] 3 [facility] system, [address] [place] [phone] Montserrat Oliver NP 3 [facility] [address] [place] [address] 12/06/2024 9:30 AM RABBLE FURNACE TENDER Appointment [facility] MRI [address] [place] [address] [place] [address] [facility] Darlene. [address] [place] [address] 03/02/2025 3:20 PM CDT Office Visit [facility] Family & Internal Medicine - [address] [phone] [place] [address] [facility] Darlene. [address] [place] [address] documented as of this encounter Visit Diagnoses Not on filedocumented in this encounter
--- OUTSIDE RECORDS SUMMARY | 2024-11-13 17:55 | XMS_ITS | Encounter Summary ---
Author Organization [facility] Address [address] [place] [address]. [place] [address] [place] [address] Care Team Providers Care Snake Charmer Name Role Phone Unavailable Primary Care Provider Unavailabl e Encounter Details Date Type Department Care Team (Latest Contact Info) Description 03/31/[address] [facility] Social History Tobacco Use Types [...] st Contact Info) Description 11/14/2024 8:00 AM HOSPITAL NURSE Office Visit [facility] Medical [facility] Multispecialty Care - [facility] [address] [facility], [address] [place] [address] Montserrat Oliver, RADIO FREQUENCY TECHNICIAN 3 [facility] [address] [place] [address] 12/06/2024 9:30 AM HOSPITAL NURSE Appointment [facility] Open MRI [address] [place] [address] [place] [address] [address] [place] [address] 03/02/2025 3:20 PM CDT Office Visit [facility] Medical Group Family & Internal Medicine - [place] [address] [place] [address] [place] [address] [facility]. [address] [place] [address] documented as of this encounter Visit Diagnoses Not on filedocumented in this encounter
--- OUTSIDE RECORDS SUMMARY | 2024-11-13 17:55 | XMS_ITS | Encounter Summary ---
Author Organization [facility] Address [address] [place] [address]. [place], [place] [address] [place] [address] Care Team Providers Care It Quality Assurance Analyst Name Role Phone Jaspreet Madsen MD Primary Care Provider U raynaailable Reason for Visit * Reason Comments Anxiety doing a bit better Encounter Details Date Type Department Care Team (Late st Contact Info) Description 01/31/2019 4:00 PM CDT Office Visit [facility] Medical Group Family & Internal Medicine [address] [address] Jaspreet Madsen MD Anxiety (doing [...] Master's degree (e.g., MA, MS, Howard, MEd, MEDICAL CENTER REPRESENTATIVE, KEKE) 12/21/2018 Comments No Sex and [...] twice a week., Disp: , Rfl: ??? 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 [address] [place] [address] 03/02/2025 3:20 PM CDT Office Visit [facility] Family & Internal Medicine - [place] [address] [place] [phone] [place] [address] [facility]. [address] [place] [address] documented as of this encounter Visit Diagnoses Diagnosis Dermatitis- Primary Contact dermatitis and other eczema, due to unspecified cause Anxiety Anxiety state, unspecified Polyarthritis Unspecified polyarthropathy or polyarthritis, site unspecified DURAN (generalized anxiety disorder) Generalized anxiety disorder documented in this encounter Care Teams It Quality Assurance Analyst Relationship Specialty Start Date End Date Jaspreet Madsen MD PCP - General INTERNAL MEDICINE 11/30/18 02/18/23 documented as of this encounter
--- OUTSIDE RECORDS SUMMARY | 2024-11-13 17:55 | XMS_ITS | Encounter Summary ---
Author Organization [facility] Address [address] [place] [address]. [place] [address] [place] [address] Care Team Providers Care Instructor Trainer Canine Service Name Role Phone Unavailable Primary Care Provider Unavailabl e Encounter Details Date Type Department Care Team (Latest Contact Info) Description 02/22/2017 Abstract [facility] García Hess MD [address] [facility] [address] [place] [address] Social History Tobacco Use Types [...] Contact Info) Description 11/14/2024 8:00 AM WATER CONSERVATIONIST Office Visit [facility] Multispecialty Care - [facility] 3 [facility], [address] [place] [phone] Montserrat Oliver NP 3 [facility] [address] [place] [address] 12/06/2024 9:30 AM WATER CONSERVATIONIST Appointment [facility] Open MRI [address] [facility] [place] [place] [address] [place] [address] [address] [place] [address] 03/02/2025 3:20 PM CDT Office Visit [facility] Medical Group Family & Internal Medicine - [place] [address] [place] [address] [place] [address] [facility] Darlene. [address] [place] [address] documented as of this encounter Visit Diagnoses Not on filedocumented in this encounter
--- OUTSIDE RECORDS SUMMARY | 2024-11-13 17:55 | XMS_ITS | Encounter Summary ---
Author Organization [facility] Address [address] [place] [address]. 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 States [...] she swallows. States she is leaving for [facility] to visit her son and then she leaves in April for [facility] to visit her daughter. Sore Throat: [facility] presents with complaints of gradual onset of [...] She is currently experiencing cough. Cough: Hans [facility] presents with complaints of gradual onset of [...] No illicit drug use ?? 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 Dicyclomine HCl - 20 MG Oral Tablet; TAKE 1 TABLET BY MOUTH EVERY 6 HOURS NEEDED; Therapy: 18Vfr3572 to (Evaluate:52Xyv2620) Requested for: 87Bmi4092; Last Rx:60Lcn5073 Ordered Rx By: Ariane Solares; Dispense: 30 Days ; #:120 Tablet; Refill: 2; For: Irritable bowel syndrome; EMA= N; Verified Transmission to [facility] Last Updated By: Michelet Help.comhanh; 02/28/20188:24:37 AM 2. Enbrel 50 MG/ML Subcutaneous Solution Prefilled Syringe; INJECT 50MG ONCE A WEEK; Therapy: 99Anz4599 to (Evaluate:19Grn4729) Recorded Dispense: 28 Days ; #: Sufficient ML; Refill: 0; For: Inflammatory arthritis; EMA = N; Record; LastUpdated By: Argelia Chan; 02/23/2017 2:22:47 PM 3. Folic Acid 1 MG Oral Tablet; TAKE 1 TABLET DAILY; Therapy: 70Rff6665 to (Evaluate:62Tqb0731) Recorded Dispense: 30 Days ; #:30 Tablet; Refill: 3; EMA = Y; Record; Last Updated By: Lashaun Kathleen; 12/04/2014 2:26:01 PM 4. Hydrocod Polst-CPM Polst ER 10-8 MG/5ML Oral Suspension Extended Release; 5 ml by mouth every 12 hours for cough; Therapy: 69Oot8973 to (Last Rx:22Mar2018) Ordered Rx By: Jes [...] LIQUID AND DRINK ONCE DAILY. prn; Therapy: (Recorded:90Mly1411) to Recorded Dispense: 15 Days ; #:15 Packet; Refill: 0; For: Irritable bowel syndrome; EMA = N; Record; Last Updated By: Sherin Abdi; 03/17/2018 1:27:46 PM 7. Multi-Vitamins TABS; TAKE 2 TABLET Daily; Therapy: (Recorded:89Ubq3213) to Recorded Dispense: 0 Days ; #: Sufficient Tablet; Refill: 0; EMA = N; Record; Last Updated By: Yohana Rodriguez;06/26/2015 8:33:56 AM 8. Nabumetone 500 MG Oral Tablet; TAKE 2 TABLET TWICE DAILY; Therapy: 23Svd6661 to Recorded Dispense: 0 Days ; #: Sufficient Tablet; Refill: 0; For: Inflammatory arthritis; EMA = N; Record; Last Updated By: Yohana Rodriguez; 10/18/2015 8:38:42 AM 9. [place]-3 Complex 192-251-11 MG-MG-UNIT Oral Capsule; Take one cap daily; Therapy: (Recorded:04Dec2014) to Recorded Dispense: 0 Days ; #: Sufficient Capsule; Refill: 0; EMA = N; Record; Last Updated By: Lashaun Kathleen; 12/04/2014 2:26:00 PM 10. Premarin 0.625 MG/GM Vaginal Cream; Insert 0.5 gram 3 times weekly at hs; Therapy: 55Dqy8165 to (Evaluate:73Ziz1701) Recorded Dispense: 0 Days ; #: Sufficient X 30 GM Tube; Refill: 0; EMA = N; Record; Last Updated By: Lashaun Kathleen; 12/04/2014 2:26:01 PM 11. Promethazine-DM 6.25-15 MG/5ML Oral Syrup; TAKE 5 ML EVERY 4 TO 6 HOURS NEEDED FOR COUGH; Therapy: 70Rfp9081 to (Evaluate:86Ryz2430) Requested for: 76Mah1032; Last Rx:93Ssv6995 Ordered Rx By: Jes Reid; Dispense: 4 Days ; #:120 Milliliter; Refill: 1; For: Cough in adult; EMA =N; Verified Transmission to [facility] Last Updated By: Crystal Tafoya; 03/18/2018 9:32:13 [...] dust, animal dander, and molds.; Status:Complete; Done: 80Nnj5184 Ordered; For:Laryngitis; Ordered By:Jes Reid; 3. Call if: You have difficulty swallowing.; Status:Complete; Done: 96Ayz5530 Ordered; For:Laryngitis; Ordered By:Jes Reid; 4. Avoid using cough medicines unless your cough keeps you awake at night.; Status:Complete; Done: 74Ibm7138 Ordered; For:Laryngitis; Ordered By:Jes Reid; 5. Call if: Your hoarse voice is not better in 1 week.; Status:Complete; Done: 55Ncn9432 Ordered; For:Laryngitis; Ordered By:Jes Reid; 6. Drink plenty of fluids.; Status:Complete; Done: 01Qii2475 Ordered; For:Laryngitis; Ordered By:Jes Reid; 7. Call if: Your sore throat is not better in 1 week.; Status:Complete; Done: 60Gtm8201 Ordered; For:Laryngitis; Ordered By:Jes Reid; 8. Gargle with warm salt water for 5 minutes every 4 hours.; Status:Complete; Done: 90Xiv2865 Ordered; For:Laryngitis; Ordered By:Jes Reid; 9. There are several ways to relax your throat, tongue, and lips before singing or talking for a long time.; Status:Complete; Done: 08Tpj9615 Ordered; For:Laryngitis; Ordered By:Jes Reid; 10. Use a cool mist humidifier in the room.; Status:Complete; Done: 65Rtq7775 Ordered; For:Laryngitis; Ordered By:Jes Reid; Sinusitis, acute 11. Amoxicillin-Pot Clavulanate 875-125 MG Oral Tablet; TAKE 1 TABLET EVERY 12 HOURS WITH MEALS UNTIL GONE Rx By: Jes Reid; Dispense: 10 Days ; #:20 Tablet; Refill: 1; For: Sinusitis, acute; EMA = N; Verified Transmission to [facility] Last Updated By: [employer]; 04/04/2018 3:27:55 PM 12. Fluticasone Propionate 50 MCG/ACT Nasal Suspension; One spray each nostril two times daily Rx By: Jes Reid; Dispense: 0 Days ; #:1 X 9.9 ML Bottle; Refill: 6; For: Sinusitis, acute; EMA = N; Verified Transmission to [facility] Last Updated By: [employer]; 04/04/2018 3:27:56 PM Plan antibiotics and nasal spray as ordered. Warm salt water gargles for throat pain. Ibuprofen as needed for pain/discomfort. Follow up if no relief and will need to consider referral to ENT for laryngitis. Signatures Electronically signed by : Jes Reid APN; Apr 04 2018 3:38PM ROLLER PRINT TENDER (Author) documented in this encounter Plan of Treatment Upcoming Encounters Date Type Department Care Team (Late st Contact Info) Description 11/14/2024 8:00 AM ROLLER PRINT TENDER Office Visit [facility] Multispecialty Care - [facility] 3 [facility], [address] [place] [address] Montserrat Oliver NP 3 [facility] [address] [place] [address] 12/06/2024 9:30 AM ROLLER PRINT TENDER Appointment [facility] Open MRI [address] [place] [address] [place] [address] [facility]. [address] [place] [address] 03/02/2025 3:20 PM CDT Office Visit [facility] Family & Internal Medicine - [address] [phone] [place] [address] [facility] [place] [address] documented as of this encounter Visit Diagnoses Not on filedocumented in this encounter
--- OUTSIDE RECORDS SUMMARY | 2024-11-13 17:55 | XMS_ITS | Encounter Summary ---
Author Organization [facility] Address [address] [place] [address]. [place] [address] [place] [address] Care Team Providers Care Millwright Name Role Phone Unavailable Primary Care Provider Unavailabl e Encounter Details Date Type Department Care Team (Late st Contact Info) Description 02/23/2017 Abstract [facility] Medical Group Family & Internal Medicine [address] [address] García Hess MD [address] [place] [address] Social History Tobacco Use Types Packs/Day Years [...] BY MOUTH EVERY 6 HOURS NEEDED; Therapy: 47Omy8307 to (Last Rx:19Feb2017) Requested for: 19Feb2017 Ordered 2. Enbrel 50 MG/ML Subcutaneous Solution Prefilled Syringe; INJECT 50MG ONCE A WEEK; Therapy: 77Xis5071 to (Evaluate:50Tjo5849) Recorded 3. Folic Acid 1 MG Oral Tablet; TAKE 1 TABLET DAILY; Therapy: 51Dja0203 to (Evaluate:26Zzj2049) Recorded 4. Methotrexate Sodium 1 GM Injection Solution Reconstituted; INJECT 0.8 ML Weekly; Therapy: 19Igl8434 to Recorded 5. MiraLax Oral Packet; MIX 1 PACKET IN 8 OUNCES OF LIQUID AND DRINK ONCE DAILY; Therapy: (Recorded:62Urd0751) to Recorded 6. Multi-Vitamins TABS; TAKE 2 TABLET Daily; Therapy: (Recorded:67Xcw6029) to Recorded 7. Nabumetone 500 MG Oral Tablet; TAKE 2 TABLET TWICE DAILY; Therapy: 62Shp9071 to Recorded 8. [place]-3 Complex 192-251-11 MG-MG-UNIT Oral Capsule; Take one cap daily; Therapy: (Recorded:04Dec2014) to Recorded 9. Premarin 0.625 MG/GM Vaginal Cream; Insert 0.5 gram 3 times weekly at hs; Therapy: 07Omz7239 to (Evaluate:39Uba1457) Recorded Allergies 1. Levaquin TABS Vitals Recorded: [...] Status: Hold For - Scheduling Requested for: 54Oyp9040 Ordered; For: Leg pain, posterior, right; Ordered By: García Hess Performed: Due: 09Mar2017 Discussion/Summary 1. Right lower leg pain. 2 week from injury. doing better. just started with PT, continue boot for comfort with weight bear. Continue PT, OTC analgesics. Discussed natural course and warning signs. Fu 1 month. Signatures Electronically signed by : García Hess M.D.; Feb 23 2017 3:00PM HOUSING COUNSELOR (Author) documented in this encounter Plan of Treatment Upcoming Encounters Date Type Department Care Team (Late st Contact Info) Description 11/14/2024 8:00 AM HOUSING COUNSELOR Office Visit [facility] Multispecialty Care - [facility] 3 [facility], [address] [place] [address] Montserrat Oliver NP 3 [facility] [address] [place] [address] 12/06/2024 9:30 AM HOUSING COUNSELOR Appointment [facility] Open MRI [address] [place] [address] [place] [address] [facility] D[facility]. [address] [place] [address] 03/02/2025 3:20 PM CDT Office Visit [facility] Family & Internal Medicine - [address] [phone] [place] [address] [facility]. [address] [place] [address] documented as of this encounter Visit Diagnoses Not on filedocumented in this encounter
--- OUTSIDE RECORDS SUMMARY | 2024-11-13 17:55 | XMS_ITS | Encounter Summary ---
Author Organization [facility] Address [address] [place] [address]. [place], [place] [address] [place] [address] Care Team Providers Care Sugar Boiler Name Role Phone Unavailable Primary Care Provider Unavailabl e Encounter Details Date Type Department Care Team (Latest Contact Info) Description 12/25/2015 Abstract [facility] Medical Group , Kings Nunez MD Social [...] Young MD - 12/24/2015 12:00 AM CST [place] [address] Patient: HANS PASCUAL Med Rec#: [id number] Birthdate: 1965 Admit/Svce Date: 12/23/2015 Disch Date: [...] this patient, please contact me at extension [phone]. Thank you for this referral. Sincerely, Electronically Signed by Pippa Zamudio P.T. 12/26/2015 01:30 P BM/sp 12/24/2015 12/25/2015 09:31 A Job No: [id number] Doc No: [id number] cc: documented in this encounter Plan of Treatment Upcoming Encounters Date Type Department Care Team (Late st Contact Info) Description 11/14/2024 8:00 AM RN COMPLIANCE Office Visit [facility] Medical Group Multispecialty Care - [address], [address] [place] [address] Montserrat Oliver, DOREEN [address] [facility] [address] [place] [address] 12/06/2024 9:30 AM RN COMPLIANCE Appointment [facility] Open MRI [address] [facility] [place] [address] [place] [address] [address] [place] [address] 03/02/2025 3:20 PM CDT Office Visit [facility] Medical Group Family & Internal Medicine - [address] [phone] [place] [address] [address] [place] [address] documented as of this encounter Visit Diagnoses Not on filedocumented in this encounter
--- OUTSIDE RECORDS SUMMARY | 2024-11-13 17:55 | XMS_ITS | Encounter Summary ---
Author Organization [facility] Address [address] [place] [address]. [place], [place] [address] [place] [address] Care Team Providers Care Health Care Assistant Name Role Phone Jaspreet Madsen MD Primary Care Provider U juan carlos Reason for Visit * Reason Comments Medication Check discuss Wellbutrin m ed. Anxiety may need to change m ed? Allergies went to slab grinder la [facility] wk. was allergic to alot of things. Encounter Details Date Type Department Care Team (Late st Contact Info) Description 03/08/2019 3:40 PM CDT Office Visit [facility] Medical Group Family & Internal Medicine [address] [address] Jaspreet Madsen MD Medication Check (discuss Wellbutrin med. ); Anxiety (may need to change med? ); Allergies (went to slab grinder last wk. was allergic to alot of [...] degree (e.g., MA, MS, Howard, MEd, SENIOR BENEFITS ANALYST, KEKE) 12/21/2018 Comments No Sex and [...] change med? ); and Allergies (went to slab grinder last wk. was allergic to alot of [...] twice a week., Disp: , Rfl: ??? 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 Social [...] file Gets together: Not on file Attends gnosticist service: Not on file Active member of [...] st Contact Info) Description 11/14/2024 8:00 AM RETAIL CUSTODIAL ASSOCIATE Office Visit [facility] Multispecialty Care - [address], [address] [place] [phone] Montserrat Oliver NP 3 [facility] [address] [place] [address] 12/06/2024 9:30 AM RETAIL CUSTODIAL ASSOCIATE Appointment [facility] Open MRI [address] [place] [address] [place] [address] [facility]. [address] [place] [address] 03/02/2025 3:20 PM CDT Office Visit [facility] Family & Internal Medicine - [place] [address] [place] [phone] [place] [address] [facility]. [address] [place] [address] documented as of this encounter Visit Diagnoses Diagnosis DURAN (generalized anxiety disorder)- Primary Generalized anxiety disorder Gastroesophageal reflux disease without esophagitis Esophageal reflux Polyarthritis Unspecified polyarthropathy or polyarthritis, site unspecified documented in this encounter Care Teams Health Care Assistant Relationship Specialty Start Date End Date Jaspreet Madsen MD PCP - General INTERNAL MEDICINE 11/30/18 02/18/23 documented as of this encounter
--- OUTSIDE RECORDS SUMMARY | 2024-11-13 17:55 | XMS_ITS | Encounter Summary ---
Author Organization [facility] Address [address] [place] [address]. [place] [address] [place] [address] Care Team Providers Care Tapper Shank Name Role Phone Unavailable Primary Care Provider Unavailabl e Encounter Details Date Type Department Care Team (Latest Contact Info) Description 01/31/2018 Abstract [facility] Medical Group Social [...] st Contact Info) Description 11/14/2024 8:00 AM PAROLE BOARD MEMBER Office Visit [facility] Medical [facility] Multispecialty Care - [facility] 3 [facility], [address] [place] [address] Montserrat Oliver, MILLER SUPERVISOR 3 [facility] [address] [place] [address] 12/06/2024 9:30 AM PAROLE BOARD MEMBER Appointment [facility] Open MRI [address] [place] [address] [place] [address] [address] [place] [address] 03/02/2025 3:20 PM CDT Office Visit [facility] Medical Group Family & Internal Medicine - [place] [address] [place] [address] [place] [address] [facility]. [address] [place] [address] documented as of this encounter Visit Diagnoses Not on filedocumented in this encounter
--- OUTSIDE RECORDS SUMMARY | 2024-11-13 17:55 | XMS_ITS | Encounter Summary ---
Author Organization [facility] Address [address] [place] [address]. [place], [place] [address] [place] [address] Care Team Providers Care Silver Service Waiter Name Role Phone Unavailable Primary Care Provider Unavailabl e Encounter Details Date Type Department Care Team (Latest Contact Info) Description 02/18/2017 Abstract [facility] Medical Group [...] Thornton Task Name: Call Back Assigned To: [facility] Nurse Team Regarding Patient: Hans Pascual, Status: Active Comment: Bianca Thornton - 17 Feb 2017 2:46 PM TASK CREATED she is wanting to start PT. she wants to get the ball rolling on this. didn't know if you was ok with [place] [facility] [place]. Her gait is off due to this boot. ins: [employer] insurance. cpb [phone] Argelia Chan - 17 Feb 2017 4:08 PM TASK REASSIGNED: Previously Assigned To [facility] Nurse Team Please advise. Thank you García [...] By: García Hess Performed: Order Comments:Patient requesting [place] Due: 04Mar2017; Last Updated By: Argelia Chan; 02/18/2017 10:17:51 AM Signatures Electronically signed by : Argelia Chan L.P.N.; Feb 18 2017 10:28AM REGULATORY PRODUCT MANAGER (Author) documented in this encounter Plan of Treatment Upcoming Encounters Date Type Department Care Team (Late st Contact Info) Description 11/14/2024 8:00 AM REGULATORY PRODUCT MANAGER Office [facility] Multispecialty Care - [facility] 3 [facility], [address] [place] [phone] Montserart Oliver NP 3 [facility] [address] [place] [address] 12/06/2024 9:30 AM REGULATORY PRODUCT MANAGER Appointment [facility] Open MRI [address] [place] [address] [place] [address] [facility]. [address] [place] [address] 03/02/2025 3:20 PM CDT Office Visit [facility] Family & Internal Medicine - [address] [phone] [place] [address] [facility]. [address] [place] [phone] documented as of this encounter Visit Diagnoses Not on filedocumented in this encounter
--- OUTSIDE RECORDS SUMMARY | 2024-11-13 17:55 | XMS_ITS | Encounter Summary ---
Author Organization [facility] Address [address] [place] [address]. [place], [place] [address] [place] [address] Care Team Providers Care Centerpuncher Name Role Phone Unavailable Primary Care Provider Unavailabl e Encounter Details Date Type Department Care Team (Latest Contact Info) Description 01/29/2016 Abstract [facility] , Generic Conversion, Social History [...] Tabitha Carmichael Task Name: Referral Assigned To: [facility] Nurse Team Regarding Patient: Hans Pascual, [...] to go to Dr. Flip Garcia at [facility] ph #[phone]. please call her back to let her know what the plan is, her cell phone #[phone] and she is ok with a detailed [...] Yohana Rodriguez R.N.; Jan 29 2016 8:43AM PACKAGE HANDLER (Author) documented in this encounter Plan of Treatment Upcoming Encounters Date Type Department Care Team (Late st Contact Info) Description 11/14/2024 8:00 AM PACKAGE HANDLER Office Visit [facility] Multispecialty Care - [facility] 3 [facility], [address] [place] [phone] Montserrat Oliver NP 3 [facility] [address] [place] [address] 12/06/2024 9:30 AM PACKAGE HANDLER Appointment [facility] Open MRI [address] [place] [address] [place] [address] [facility]. [address] [place] [address] 03/02/2025 3:20 PM CDT Office Visit [facility] Family & Internal Medicine - [place] [address] [place] [phone] [place] [address] [facility]. [address] [place] [address] documented as of this encounter Visit Diagnoses Not on filedocumented in this encounter
--- OUTSIDE RECORDS SUMMARY | 2024-11-13 17:55 | XMS_ITS | Encounter Summary ---
Author Organization [facility] Address [address] [place] [address]. [place] [address] [place] [address] Care Team Providers Care Rn Community Health Name Role Phone Unavailable Primary Care Provider Unavailabl e Encounter Details Date Type Department Care Team (Latest Contact Info) Description 09/20/2018 Scan [facility] , Kings Nunez MD Social [...] Contact Info) Description 11/14/2024 8:00 AM SALES AND SERVICE REPRESENTATIVE Office Visit [facility] Multispecialty Care - [facility] 3 [facility], [address] [place] [phone] Montserrat Oliver NP [address] [facility] [address] [place] [address] 12/06/2024 9:30 AM SALES AND SERVICE REPRESENTATIVE Appointment [facility] Open MRI [address] [place] [address] [place] [address] [address] [place] [address] 03/02/2025 3:20 PM CDT Office Visit [facility] Family & Internal Medicine - [place] [address] [place] [address] [place] [address] [facility]. [address] [place] [address] documented as of this encounter Visit Diagnoses Not on filedocumented in this encounter
--- OUTSIDE RECORDS SUMMARY | 2024-11-13 17:55 | XMS_ITS | Encounter Summary ---
Author Organization [facility] Address [address] [place] [address]. [place], [place] [address] [place] [address] Care Team Providers Care Commissioning Editor Name Role Phone Unavailable Primary Care Provider Unavailabl e Encounter Details Date Type Department Care Team (Latest Contact Info) Description 08/29/2018 Abstract [facility] , Generic Conversion, [...] Weber Task Name: Call Back Assigned To: REHABILITATION [...] in adult; EMA = N; Sent To: [facility]; Last Updated By: Montserrat Weber; 08/29/2018 2:07:36 PM Signatures Electronically signed by : Montserrat Weber, ; Aug 29 2018 2:08PM CASKET ASSEMBLER METAL (Author) documented in this encounter Plan of Treatment Upcoming Encounters Date Type Department Care Team (Late st Contact Info) Description 11/14/2024 8:00 AM CASKET ASSEMBLER METAL Office Visit [facility] Multispecialty Care - [facility] 3 [facility], [address] [place] [phone] Montserrat Oliver NP 3 [facility] [address] [place] [address] 12/06/2024 9:30 AM CASKET ASSEMBLER METAL Appointment [facility] MRI [address] [place] [address] [place] [address] [facility]. [address] [place] [address] 03/02/2025 3:20 PM CDT Office Visit [facility] Family & Internal Medicine - [address] [phone] [place] [address] [facility]. [address] [place] [address] documented as of this encounter Visit Diagnoses Not on filedocumented in this encounter
--- OUTSIDE RECORDS SUMMARY | 2024-11-13 17:55 | XMS_ITS | Encounter Summary ---
Author Organization [facility] Address [address] [place] [address]. [place] [address] [place] [address] Care Team Providers Care Hvac Engineer Name Role Phone Jaspreet Pearl MD Primary Care Provider U navailable Reason for Visit * Imaging (Routine) - Closed Specialty Diagnoses / Procedures Referred By Contac t Referred To Contact RADIOLOGY Diagnoses Screening breast examination Procedures MG SCREENING W KRISTEN VICTORIANO DIGI Non-Staff, Provider Referral ID Status Reason Start Date Expiration Date Visits Re quested Visits Authorized [id number] Closed 05/09/2019 06/08/2020 1 1 Encounter Details Date Type Department Care Team (Latest Contact Info) Description 05/31/2019 12:43 PM CDT - 05/31/2019 11:59 PM CDT Hospital Encounter [facility] Mammography [address] [place] [address] Stalin Calderón MD [address] [address] Discharge Disposition: Home or Self Care (Routine [...] Master's degree (e.g., MA, MS, Howard, MEd, MED SPEC, KEKE) 12/21/2018 Comments No Sex and [...] 0.5 g vaginally twice a week. 0 UNY-BNX-Ozwbheb E 192-251-11 MG-MG-UNIT Cap Take 1 capsule [...] st Contact Info) Description 11/14/2024 8:00 AM OXYGEN THERAPY TECHNICIAN Office Visit [facility] Multispecialty Care - [address], [address] [place] [phone] Montserrat Oliver NP 3 [facility] [address] [place] [address] 12/06/2024 9:30 AM OXYGEN THERAPY TECHNICIAN Appointment [facility] MRI [address] [place] [address] [place] [address] [facility] [address] [place] [address] 03/02/2025 3:20 PM CDT Office Visit [facility] Family & Internal Medicine - [place] [address] [place] [phone] [place] [address] [facility]. [address] [place] [address] documented as of this encounter Procedures Procedure [...] BIOPSY OF A CLINICALLY SUSPICIOUS LESION. ? *[facility] utilizes a mammogram reminder program. ?? Interpreted [...] documented as of this encounter Care Teams Hvac Engineer Relationship Specialty Start Date End Date Jaspreet eParl MD PCP - General INTERNAL MEDICINE 11/30/18 02/18/23 documented as of this encounter
--- OUTSIDE RECORDS SUMMARY | 2024-11-13 17:55 | XMS_ITS | Encounter Summary ---
Author Organization [facility] Address [address] [place] [address]. [place] [address] [place] [address] Care Team Providers Care Cotton Weigher Name Role Phone Unavailable Primary Care Provider Unavailabl e Encounter Details Date Type Department Care Team (Latest Contact Info) Description 03/21/2018 Abstract [facility] Social History Tobacco Use [...] denise Verified Results Group A Streptococcus Culture [id number] 01:45PM Jes Reid Test Name Result Flag Reference Group A Streptococcus Culture SPECIMEN DESCRIPTION - THROAT SPECIAL REQUESTS - NO SPECIAL REQUEST CULTURE - NO STREPTOCOCCUS PYOGENES (GROUP A) ISOLATED REPORT STATUS - FINAL 03/20/2018 documented in this encounter Plan of Treatment Upcoming Encounters Date Type Department Care Team (Late st Contact Info) Description 11/14/2024 8:00 AM ELECTRONIC COMPONENTS ASSEMBLER Office Visit [facility] Multispecialty Care - [facility] 3 [facility], [address] [place] [phone] Montserrat Oliver NP 3 [facility] [address] [place] [address] 12/06/2024 9:30 AM ELECTRONIC COMPONENTS ASSEMBLER Appointment [facility] [address] [facility] [place] [address] [place] [address] [address] [place], [place] [address] 03/02/2025 3:20 PM CDT Office Visit [facility] Family & Internal Medicine - [place] [address] [place] [address] [place] [address] [facility] [place] [address] documented as of this encounter Visit Diagnoses Not on filedocumented in this encounter
--- OUTSIDE RECORDS SUMMARY | 2024-11-13 17:55 | XMS_ITS | Encounter Summary ---
Author Organization [facility] Address [address] [place] [address]. [place] [address] [place] [address] Care Team Providers Care General Manager Land Department Name Role Phone Unavailable Primary Care Provider Unavailabl e Encounter Details Date Type Department Care Team (Late st Contact Info) Description 03/17/2018 Abstract [facility] Family & Internal Medicine [facility] [address] [place] [address] [place] [address] [place], [place] [phone] Social History Tobacco Use Types Packs/Day Years [...] No illicit drug use ?? 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 Dicyclomine HCl - 20 MG Oral Tablet; TAKE 1 TABLET BY MOUTH EVERY 6 HOURS NEEDED; Therapy: 91Wsy1989 to (Evaluate:36Iil1387) Requested for: 28Feb2018; Last Rx:28Feb2018 Ordered Rx By: Ariane Solares; Dispense: 30 Days ; #:120 Tablet; Refill: 2; For: Irritable bowel syndrome; EMA= N; Verified Transmission to [facility].; Last Updated By: Crystal Tafoya; 02/28/20188:24:37 AM 2. Enbrel 50 MG/ML Subcutaneous Solution Prefilled Syringe; INJECT 50MG ONCE A WEEK; Therapy: 92Vwx5499 to (Evaluate:06Ejn8274) Recorded Dispense: 28 Days ; #: Sufficient ML; Refill: 0; For: Inflammatory arthritis; EMA = N; Record; LastUpdated By: Argelia Chan; 02/23/2017 2:22:47 PM 3. Folic Acid 1 MG Oral Tablet; TAKE 1 TABLET DAILY; Therapy: 06Gfz0089 to (Evaluate:63Lip9774) Recorded Dispense: 30 Days ; #:30 Tablet; [...] LIQUID AND DRINK ONCE DAILY. prn; Therapy: (Recorded:35Fop4115) to Recorded Dispense: 15 Days ; #:15 Packet; Refill: 0; For: Irritable bowel syndrome; EMA = N; Record; Last Updated By: Sherin Abdi; 03/17/2018 1:27:46 PM 6. Multi-Vitamins TABS; TAKE 2 TABLET Daily; Therapy: (Recorded:65Vhx7552) to Recorded Dispense: 0 Days ; #: Sufficient Tablet; Refill: 0; EMA = N; Record; Last Updated By: Yohana Rodriguez;06/26/2015 8:33:56 AM 7. Nabumetone 500 MG Oral Tablet; TAKE 2 TABLET TWICE DAILY; Therapy: 17Heb4932 to Recorded Dispense: 0 Days ; #: Sufficient Tablet; Refill: 0; For: Inflammatory arthritis; EMA = N; Record; Last Updated By: Yohana Rodriguez; 10/18/2015 8:38:42 AM 8. [place]-3 Complex 192-251-11 MG-MG-UNIT Oral Capsule; Take one cap daily; Therapy: (Recorded:04Dec2014) to Recorded Dispense: 0 Days ; #: Sufficient Capsule; Refill: 0; EMA = N; Record; Last Updated By: Lashaun Kathleen; 12/04/2014 2:26:00 PM 9. Premarin 0.625 MG/GM Vaginal Cream; Insert 0.5 gram 3 times weekly at hs; Therapy: 52Cld6585 to (Evaluate:81Npp1019) Recorded Dispense: 0 Days ; #: Sufficient X 30 GM Tube; Refill: 0; EMA = N; Record; Last Updated By: Lashaun Kathleen; 12/04/2014 2:26:01 PM Allergies 1. Levaquin TABS Hallucinations; Nausea; Updated By: Loerto Mendoza; 02/28/2018 8:03:53 AM Vitals Recorded: 17Mar2018 [...] acute; EMA = N; Verified Transmission to [facility]; Last Updated By: MicheletFyusion; 03/17/2018 2:17:41 PM Rapid strep negative. Cough medication as prescribed. Advised to rest voice, warm salt water garlges, tylenol as needed for pain/fever. Follow up in 1 week if no relief. Signatures Electronically signed by : Jes Reid APN; Mar 17 2018 2:19PM GLIDING PILOT INSTRUCTOR (Author) documented in this encounter Miscellaneous Notes * Letter - Jes Reid NP - 03/17/2018 1:20 PM CDT Hans Pascual may return to work on 03/18/18. She has been under my care for illness. . Hunter return without limitations.. She was out from 03/17/18. Electronically signed by : Jes Reid APN; Mar 17 2018 2:19PM GLIDING PILOT INSTRUCTOR (Author) documented in this encounter Plan of Treatment Upcoming Encounters Date Type Department Care Team (Late st Contact Info) Description 11/14/2024 8:00 AM GLIDING PILOT INSTRUCTOR Office Visit [facility] Multispecialty Care - [facility] 3 [facility], [address] [place] [phone] Montserrat Oliver HAND TOOL FILER [address] [place] [address] 12/06/2024 9:30 AM GLIDING PILOT INSTRUCTOR [facility] [address] [place] [address] [place] [address] [facility] [address] [place] [address] 03/02/2025 3:20 PM CDT Office Visit [facility] Family & Internal Medicine - [address] [phone] [place] [address] [facility] [address] [place] [address] documented as of this encounter Procedures Procedure [...] EPIC CONVERSION - 03/17/2018 1:50 PM CDT 30Bpi2949 4:24PM by Jes Reid: ??patient was notified in office. denise Result Communication: No patient communication needed at this time us Jes Reid HAND TOOL FILER MICROBIOLOGY - GENERAL GERA DAVID Final Result [...] GERA DAVID Final Result Performing Organization Address [facility] de Phone Number [facility] TO EPIC CONVERSION documented in this encounter Visit Diagnoses Not on filedocumented in this encounter
--- OUTSIDE RECORDS SUMMARY | 2024-11-13 17:55 | XMS_ITS | Encounter Summary ---
Author Organization [facility] Address [address] [place] [address]. [place] [address] [place] [address] Care Team Providers Care Aix Administrator Name Role Phone Unavailable Primary Care Provider Unavailabl e Encounter Details Date Type Department Care Team (Latest Contact Info) Description 05/05/2018 Abstract [facility] Social History Tobacco [...] Pt called stating she is leaving for [facility] on Wednesday. She saw PCP on 04/29 for nasal drainage/cough symptoms. PCP prescribed Symbicort and Singulair and symptoms seemed to resolve until yesterday. Yesterday complaint of cough with green phlegm. Because pt is leaving for [facility], PCP prescribed doxycycline as precautionary measures. Pt [...] questions answered. Signatures Electronically signed by : Geneva Tan, ; May 05 2018 2:51PM PHONE OPERATOR (Author) documented in this encounter Plan of Treatment Upcoming Encounters Date Type Department Care Team (Late st Contact Info) Description 11/14/2024 8:00 AM PHONE OPERATOR Office Visit [facility] Multispecialty Care - [facility] 3 [facility], [address] [place] [phone] Montserrat Oliver NP 3 [facility] [address] [place] [address] 12/06/2024 9:30 AM PHONE OPERATOR Appointment [facility] Open MRI [address] [place] [address] [place] [address] [facility]. [address] [place] [address] 03/02/2025 3:20 PM CDT Office Visit [facility] Family & Internal Medicine - [address] [phone] [place] [address] [facility] [place] [address] documented as of this encounter Visit Diagnoses Not on filedocumented in this encounter
--- OUTSIDE RECORDS SUMMARY | 2024-11-13 17:55 | XMS_ITS | Encounter Summary ---
Author Organization [facility] Address [address] [place] [address]. [place], [place] [address] [place] [address] Care Team Providers Care Ammonia Operator Name Role Phone Unavailable Primary Care Provider Unavailabl e Encounter Details Date Type Department Care Team (Latest Contact Info) Description 11/19/2015 Abstract [facility] , Kings Nunez MD Social [...] Young MD - 11/13/2015 12:00 AM CST [place] [address] Patient: HANS PASCUAL Med Rec#: [id number] Birthdate: 1965 Admit/Svce Date: 11/13/2015 Disch Date: [...] weeks Rehab Potential: Good for above goals Long-Term Goal: Patient to have decreased pain such [...] BM/sp 11/13/2015 11/19/2015 09:42 A Job No: [id number] Doc No: [id number] documented in this encounter Plan of Treatment Upcoming Encounters Date Type Department Care Team (Late st Contact Info) Description 11/14/2024 8:00 AM CANDY POLISHER Office Visit [facility] Multispecialty Care - [facility] 3 [facility], [address] [place] [phone] Montserrat Oliver NP 3 [facility] [address] [place] [address] 12/06/2024 9:30 AM CANDY POLISHER Appointment [facility] Open MRI [address] [place] [address] [place] [address] [address] [place] [address] 03/02/2025 3:20 PM CDT Office Visit [facility] Family & Internal Medicine - [place] [address] [place] [address] [place] [address] [facility]. [address] [place] [address] documented as of this encounter Visit Diagnoses Not on filedocumented in this encounter
--- OUTSIDE RECORDS SUMMARY | 2024-11-13 17:55 | XMS_ITS | Encounter Summary ---
Author Organization [facility] Address [address] [place] [address]. [place] [address] [place] [address] Care Team Providers Care Pathology Laboratory Director Name Role Phone Unavailable Primary Care Provider Unavailabl e Encounter Details Date Type Department Care Team (Late st Contact Info) Description 04/29/2018 Abstract [facility] Family & Internal Medicine [address] [phone] Jaspreet Pearl MD Social History [...] No illicit drug use ?? 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 Dicyclomine HCl - 20 MG Oral Tablet; TAKE 1 TABLET BY MOUTH EVERY 6 HOURS NEEDED; Therapy: 78Upy0517 to (Evaluate:14Sho9135) Requested for: 28Feb2018; Last Rx:28Feb2018 Ordered Rx By: Ariane Solares; Dispense: 30 Days ; #:120 Tablet; Refill: 2; For: Irritable bowel syndrome; EMA= N; Verified Transmission to [facility] Last Updated By: Crystal Tafoya; 02/28/20188:24:37 AM 2. Enbrel 50 MG/ML Subcutaneous Solution Prefilled Syringe; INJECT 50MG ONCE A WEEK; Therapy: 14Egc4597 to (Evaluate:97Bjs5959) Recorded Dispense: 28 Days ; #: Sufficient ML; Refill: 0; For: Inflammatory arthritis; EMA = N; Record; LastUpdated By: Argelia Chan; 02/23/2017 2:22:47 PM 3. Fluticasone Propionate 50 MCG/ACT Nasal Suspension; One spray each nostril two times daily; Therapy: 21Aje7056 to (Last Rx:04Apr2018) Requested for: 92Gub6720 Ordered Rx By: Jes Reid; Dispense: 0 Days ; #:1 X 9.9 ML Bottle; Refill: 6; For: Sinusitis, acute; EMA = N; Verified Transmission to [facility]; Last Updated By: Vilma Tafoyanextsocialgagan; 04/04/2018 3:27:56 PM 4. Folic Acid 1 MG Oral Tablet; TAKE 1 TABLET DAILY; Therapy: 28Obb9716 to (Evaluate:02Vhw8405) Recorded Dispense: 30 Days ; #:30 Tablet; [...] LIQUID AND DRINK ONCE DAILY. prn; Therapy: (Recorded:07Ydg3804) to Recorded Dispense: 15 Days ; #:15 Packet; Refill: 0; For: Irritable bowel syndrome; EMA = N; Record; Last Updated By: Sherin Abdi; 03/17/2018 1:27:46 PM 8. Multi-Vitamins TABS; TAKE 2 TABLET Daily; Therapy: (Recorded:15Zcl8439) to Recorded Dispense: 0 Days ; #: Sufficient Tablet; Refill: 0; EMA = N; Record; Last Updated By: Yohana Rodriguez;06/26/2015 8:33:56 AM 9. Nabumetone 500 MG Oral Tablet; TAKE 2 TABLET TWICE DAILY; Therapy: 78Fpp0549 to Recorded Dispense: 0 Days ; #: Sufficient Tablet; Refill: 0; For: Inflammatory arthritis; EMA = N; Record; Last Updated By: Yohana Rodriguez; 10/18/2015 8:38:42 AM 10. [place]-3 Complex 192-251-11 MG-MG-UNIT Oral Capsule; Take one cap daily; Therapy: (Recorded:04Dec2014) to Recorded Dispense: 0 Days ; #: Sufficient Capsule; Refill: 0; EMA = N; Record; Last Updated By: Lashaun Kathleen; 12/04/2014 2:26:00 PM 11. Premarin 0.625 MG/GM Vaginal Cream; Insert 0.5 gram 3 times weekly at hs; Therapy: 02Aug2014 to (Evaluate:37Skk2908) Recorded Dispense: 0 Days ; #: Sufficient [...] in adult; EMA =N; Verified Transmission to [facility] Last Updated By: Borderfree; 04/29/2018 8:20:19 AM 2. Montelukast Sodium 10 MG Oral Tablet; TAKE 1 TABLET IN THE EVENING Rx By: Jaspreet Pearl; Dispense: 30 Days ; #:30 Tablet; Refill: 3; For: Cough in adult; EMA = N; Verified Transmission to [facility] Last Updated By: Borderfree; 04/29/2018 8:21:16 AM Discussion/Summary I am going to give her a sample of Symbicort to take for few days. She is getting ready to go to [facility] to visit her daughter. I am going to give her some Tessalon Perles for the cough and also I wanther to start taking 10 mg of Singulair per day for the next month and then we will go from there. Plenty of fluids. Signatures Electronically signed by : Jaspreet Pearl M.D.; May 03 2018 7:44AM ASSEMBLER GOLF WOOD HEAD (Author) documented in this encounter Plan of Treatment Upcoming Encounters Date Type Department Care Team (Late st Contact Info) Description 11/14/2024 8:00 AM ASSEMBLER GOLF WOOD HEAD Office Visit [facility] Mult[facility]ialty Care - [facility] 3 [facility], [address] [place] [address] Montserrat Oliver NP 3 [facility] [address] [place] [address] 12/06/2024 9:30 AM ASSEMBLER GOLF WOOD HEAD [facility] [address] [place] [address] [place] [address] [facility] [place] [address] 03/02/2025 3:20 PM CDT Office Visit [facility] Family & Internal Medicine - [address] [phone] [place] [address] [facility] Darlene. [address] [place] [address] documented as of this encounter Visit Diagnoses Not on filedocumented in this encounter
--- OUTSIDE RECORDS SUMMARY | 2024-11-13 17:55 | XMS_ITS | Encounter Summary ---
Author Organization [facility] Address [address] [place] [address]. [place] [address] [place] [address] Care Team Providers Care System Engineer Name Role Phone Jaspreet Pearl MD Primary Care Provider Felipe archerelijah Encounter Details Date Type Department Care Team (Late st Contact Info) Description 06/15/2016 Abstract [facility] Diagnostic Imaging [address] [place] [address] Stalin Calderón MD [address] [id number] Social History Tobacco Use Types Packs/Day Years [...] st Contact Info) Description 11/14/2024 8:00 AM COMMISSION SPECIALIST Office Visit [facility] Multispecialty Care - [facility] 3 [facility], [address] [place] [address] Montserrat Oliver NP 3 [facility] [address] [place] [address] 12/06/2024 9:30 AM COMMISSION SPECIALIST [facility] [address] [place] [address] [place] [address] [facility] [address] [place], [place] [phone] 03/02/2025 3:20 PM CDT Office Visit [facility] Family & Internal Medicine - [place] [address] [place] [address] [place] [address] [facility] [employer]. [address] [place] [address] documented as of this encounter Visit Diagnoses Diagnosis Encounter for screening mammogram for malignant neoplasm of breast Other screening mammogram documented in this encounter Care Teams System Engineer Relationship Specialty Start Date End Date Jaspreet Pearl MD PCP - General INTERNAL MEDICINE 11/30/18 02/18/23 documented as of this encounter
--- OUTSIDE RECORDS SUMMARY | 2024-11-13 17:55 | XMS_ITS | Encounter Summary ---
Author Organization [facility] Address [address] [place] [address]. [place], [place] [address] [place] [address] Care Team Providers Care Clinical Program Manager Name Role Phone Unavailable Primary Care Provider Unavailabl e Encounter Details Date Type Department Care Team (Latest Contact Info) Description 05/24/2018 Abstract [facility] [...] Montserrat Weber, ; May 24 2018 11:20AM STATION EXAMINER (Author) documented in this encounter Plan of Treatment Upcoming Encounters Date Type Department Care Team (Late st Contact Info) Description 11/14/2024 8:00 AM STATION EXAMINER Office Visit [facility] Medical [facility] Multispecialty Care - [facility] 3 [facility], [address] [place] [address] Montserrat Oliver NP 3 [facility] [address] [place] [address] 12/06/2024 9:30 AM STATION EXAMINER Appointment [facility] Open MRI [address] [place] [address] [place] [address] [facility] Darlene. [address] [place] [phone] 03/02/2025 3:20 PM CDT Office Visit [facility] Medical Group Family & Internal Medicine - [address] [address] [place] [address] [address]. [address] [place] [address] documented as of this encounter Visit Diagnoses Not on filedocumented in this encounter
--- OUTSIDE RECORDS SUMMARY | 2024-11-13 17:55 | XMS_ITS | Encounter Summary ---
Author Organization [facility] Address [address] [place] [address]. [place] [address] [place] [address] Care Team Providers Care Front Edger Name Role Phone Unavailable Primary Care Provider Unavailabl e Encounter Details Date Type Department Care Team (Latest Contact Info) Description 01/10/2016 Abstract [facility] [...] Randolph Task Name: Renew Medication Assigned To: [facility] Nurse Team Regarding Patient: Hans Pascual, Status: Active Comment: Perla Randolph - 10 Jan 2016 12:25 PM TASK CREATED Caller: Elvira; Elvira [facility] in [place] stating pt is requesting a refill of [...] = N; Call Rx; Last Updated By: Yoahna Rodriguez; 01/10/2016 1:49:51 PM script called into family pharmacy script called into Family Pharmacy Signatures Electronically signed by : Yohana Rodriguez R.N.; Jan 10 2016 1:50PM HARBOR TUG CAPTAIN (Author) documented in this encounter Plan of Treatment Upcoming Encounters Date Type Department Care Team (Late st Contact Info) Description 11/14/2024 8:00 AM HARBOR TUG CAPTAIN Office Visit [facility] Multispecialty Care - [facility] 3 [facility], [address] [place] [phone] Montserrat Oliver NP 3 [facility] [address] [place] [address] 12/06/2024 9:30 AM HARBOR TUG CAPTAIN Appointment [facility] Open MRI [address] [place] [address] [place] [address] [facility] Darlene. [address] [place] [address] 03/02/2025 3:20 PM CDT Office Visit [facility] Family & Internal Medicine - [address] [phone] [place] [address] [facility]. [address] [place] [address] documented as of this encounter Visit Diagnoses Not on filedocumented in this encounter
--- OUTSIDE RECORDS SUMMARY | 2024-11-13 17:55 | XMS_ITS | Encounter Summary ---
Author Organization [facility] [place] [facility] Address [address] [place] [address]. [place] [address] [place] [address] Care Team Providers Care Hoist Mechanic Name Role Phone Unavailable Primary Care Provider Unavailabl e Encounter Details Date Type Department Care Team (Late st Contact Info) Description 10/20/2016 Abstract [facility] Family & Internal Medicine [facility] [address] [place] [phone] [place] [id number] [place] [id number] Social History Tobacco Use Types Packs/Day Years [...] Comments Blood Pressure 110/70 10/20/2016 11:42 AM HOT HEAD MACHINE OPERATOR Pulse 82 10/20/2016 11:42 AM HOT HEAD MACHINE OPERATOR Temperature - - Respiratory Rate - - Oxygen Saturation - - Inhaled Oxygen Concentration - - Weight 73.5 kg (162 lb) 10/20/2016 11:42 AM HOT HEAD MACHINE OPERATOR Height 170.2 cm (5' 7 ) 10/20/2016 11:42 AM HOT HEAD MACHINE OPERATOR Body Mass Index 25.37 10/20/2016 11:42 AM HOT HEAD MACHINE OPERATOR documented in this encounter Progress Notes * Clement Young MD - 10/20/2016 11:45 AM CST Chief Complaint Pt here with c/o sore throat History of Present Illness Sore Throat: [facility]yn [facility] presents with complaints of sore throat. [...] Tablet; TAKE 1 TABLET DAILY DIRECTED; Therapy: (Recorded:[id number]) to Recorded Dispense: 0 Days ; #: Sufficient Tablet; Refill: 0; EMA = N; Record; Last Updated By: Yohana Rodriguez;06/26/2015 8:33:57 AM 2. Dicyclomine HCl - 20 MG Oral Tablet; TAKE 1 TABLET BY MOUTH EVERY 6 HOURS NEEDED; Therapy: 33Xkf1511 to (Last Rx:29Nov2015) Requested for: 29Nov2015 Ordered Rx By: Clement Young; Dispense: 0 Days ; #:40 TAB; Refill: 0; For: Irritable bowel syndrome; EMA= N; Verified Transmission to [facility]; Last Updated By: Vilma [email or web address] ([email or web address])gagan; 10/20/201611:58:28 AM 3. Enbrel 50 MG/ML Subcutaneous Solution Prefilled Syringe; INJECT 50MG ONCE A WEEK; Therapy: 04Han1704 to (Evaluate:67Mmg9347) Recorded Dispense: 28 Days ; #: Sufficient ML; Refill: 0; EMA = N; Record; Last Updated By: Yohana Rodriguez; 06/26/2015 8:33:57 AM 4. Folic Acid 1 MG Oral Tablet; TAKE 1 TABLET DAILY; Therapy: 25Vyc9939 to (Evaluate:94Cfp3321) Recorded Dispense: 30 Days ; #:30 Tablet; Refill: 3; EMA = Y; Record; Last Updated By: Lashaun Kathleen; 12/04/2014 2:26:01 PM 5. Methotrexate Sodium 1 GM Injection Solution Reconstituted; INJECT 0.8 ML Weekly; Therapy: 41Zsr5821 to Recorded Dispense: 0 Days ; #: [...] Multi-Vitamins TABS; TAKE 2 TABLET Daily; Therapy: (Recorded:61Yvt6985) to Recorded Dispense: 0 Days ; #: Sufficient Tablet; Refill: 0; EMA = N; Record; Last Updated By: Yohana Rodriguez;06/26/2015 8:33:56 AM 8. Nabumetone 500 MG Oral Tablet; TAKE 2 TABLET TWICE DAILY; Therapy: 18Oct2015 to Recorded Dispense: 0 Days ; #: Sufficient Tablet; Refill: 0; For: Inflammatory arthritis; EMA = N; Record; Last Updated By: Yohana Rodriguez; 10/18/2015 8:38:42 AM 9. [place]-3 Complex 192-251-11 MG-MG-UNIT Oral Capsule; Take one cap daily; Therapy: (Recorded:04Dec2014) to Recorded Dispense: 0 Days ; #: Sufficient Capsule; Refill: 0; EMA = N; Record; Last Updated By: Lashaun Kathleen; 12/04/2014 2:26:00 PM 10. Premarin 0.625 MG/GM Vaginal Cream; Insert 0.5 gram 3 times weekly at hs; Therapy: 02Aug2014 to (Evaluate:28Tak1917) Recorded Dispense: 0 Days ; #: Sufficient X 30 GM Tube; Refill: 0; EMA = N; Record; Last Updated By: Lashaun Kathleen; 12/04/2014 2:26:01 PM 11. TraMADol HCl - 50 MG Oral Tablet; Take one tab po BID prn; Therapy: 18Oct2015 to (Last Rx:[id number]) Ordered Rx By: Clement Young; Dispense: 0 Days ; #:60 Tablet; Refill: 0; For: Arthritis; EMA = N; Record; Last Updated By: Argelia Chan; 03/31/2016 5:12:18 PM Allergies 1. Levaquin TABS Recorded By: Tamie Cosby; 09/23/2012 2:04:37 PM Vitals Recorded: 97Jcv3397 11:42AM Temperature 98.8 F Heart Rate 82 [...] bowel syndrome; EMA = N; Sent To: [facility] Pharyngitis 2. Amoxicillin 500 MG Oral Capsule; TAKE 1 CAPSULE 3 TIMES DAILY Rx By: Clement Young; Dispense: 10 Days ; #:30 Capsule; Refill: 0; For: Pharyngitis; EMA = N; Sent To: [facility]. Signatures Electronically signed by : Clement Young M.D.; Oct 26 2016 12:24PM HOT HEAD MACHINE OPERATOR (Author) documented in this encounter Plan of Treatment Upcoming Encounters Date Type Department Care Team (Late st Contact Info) Description 11/14/2024 8:00 AM HOT HEAD MACHINE OPERATOR Office Visit [facility] Multispecialty Care - [address], Suite [facility] [place] [phone] Montserrat Oliver NP [address] [place] [address] [place] [address] 12/06/2024 9:30 AM HOT HEAD MACHINE OPERATOR Appointment [facility] Open MRI [address] [place] [address] [place] [address] [address] [place] [address] 03/02/2025 3:20 PM CDT Office Visit [facility] Family & Internal Medicine - [address] [address] [place] [address] [facility] Er Darlene. [address] [place] [address] documented as of this encounter Visit Diagnoses Not on filedocumented in this encounter
--- OUTSIDE RECORDS SUMMARY | 2024-11-13 17:55 | XMS_ITS | Encounter Summary ---
Author Organization [facility] Address [address] [place] [address]. [place], [place] [address] [place] [address] Care Team Providers Care Processor Helper Name Role Phone Jaspreet Pearl MD Primary Care Provider Felipe archerelijah Encounter Details Date Type Department Care Team (Late st Contact Info) Description 01/12/2019 Orders Only [facility] Family & Internal Medicine [address] [address] Montserrat Weber, JOSSUE Social History [...] Master's degree (e.g., MA, MS, Howard, MEd, VOICE COACH, KEKE) 12/21/2018 Comments No Sex and Gender [...] Contact Info) Description 11/14/2024 8:00 AM MATERIALS COORDINATOR Office Visit [facility] Multispecialty Care - [facility] 3 [facility], [address] [place] [address] Montserrat Oliver, DOREEN 3 [facility] [address] [place] [address] 12/06/2024 9:30 AM MATERIALS COORDINATOR Appointment [facility] Open MRI [address] [facility] [place] [place] [address] [place] [address] [facility] [address] [place], [place] [phone] 03/02/2025 3:20 PM CDT Office Visit [facility] Family & Internal Medicine - [address] [address] [place] [address] [place] [address] documented as of this encounter Visit Diagnoses Diagnosis Anxiety Anxiety state, unspecified documented in this encounter Care Teams Processor Helper Relationship Specialty Start Date End Date Jaspreet Pearl MD PCP - General INTERNAL MEDICINE 11/30/18 02/18/23 documented as of this encounter
--- OUTSIDE RECORDS SUMMARY | 2024-11-13 17:55 | XMS_ITS | Encounter Summary ---
Author Organization [facility] Address [address] [place] [address]. [place], [place] [address] [place] [address] Care Team Providers Care Marine Structural Designer Name Role Phone Jasprete Pearl MD Primary Care Provider Felipe archerelijah Encounter Details Date Type Department Care Team (Late st Contact Info) Description 01/12/2019 Orders Only [facility] Family & Internal Medicine [address] [address] Montserrat Weber, JOSSUE Social History [...] Master's degree (e.g., MA, MS, Howard, MEd, STILL OPERATOR WHISKEY, KEKE) 12/21/2018 Comments No Sex and Gender [...] st Contact Info) Description 11/14/2024 8:00 AM SEARCH ENGINE MARKETING STRATEGIST Office Visit [facility] Multispecialty Care - [facility] 3 [facility], [address] [place] [address] Montserrat Oliver, DOREEN 3 [facility] [address] [place] [address] 12/06/2024 9:30 AM SEARCH ENGINE MARKETING STRATEGIST Appointment [facility] Open MRI [address] [facility] [place] [address] [place] [address] [facility] [address] [place] [address] 03/02/2025 3:20 PM CDT Office Visit [facility] Family & Internal Medicine - [address] [address] [place] [address] [facility] [address] [place] [address] documented as of this encounter Visit Diagnoses Diagnosis Seasonal allergies Allergic rhinitis, cause unspecified documented in this encounter Care Teams Marine Structural Designer Relationship Specialty Start Date End Date Jaspreet Pearl MD PCP - General INTERNAL MEDICINE 11/30/18 02/18/23 documented as of this encounter
--- OUTSIDE RECORDS SUMMARY | 2024-11-13 17:55 | XMS_ITS | Encounter Summary ---
Author Organization [facility] Address [address] [place] [address]. [place] [address] [place] [address] Care Team Providers Care Podiatrist Name Role Phone Unavailable Primary Care Provider Unavailabl e Encounter Details Date Type Department Care Team (Late st Contact Info) Description 02/28/[address] [facility] Family & Internal Medicine [address] [address] Ariane Solares MD Social History [...] BY MOUTH EVERY 6 HOURS NEEDED; Therapy: 36Xbu2688 to (Last Rx:19Feb2017) Requested for: 19Feb2017 Ordered 2. Enbrel 50 MG/ML Subcutaneous Solution Prefilled Syringe; INJECT 50MG ONCE A WEEK; Therapy: 21Ank0557 to (Evaluate:23Mar2017) Recorded 3. Folic Acid 1 MG Oral Tablet; TAKE 1 TABLET DAILY; Therapy: 19Unh8894 to (Evaluate:49Bqs7962) Recorded 4. Methotrexate 2.5 MG Oral Tablet; TAKE 8 TABLET Weekly; Therapy: 28Feb2018 to Recorded 5. MiraLax Oral Packet; MIX 1 PACKET IN 8 OUNCES OF LIQUID AND DRINK ONCE DAILY; Therapy: (Recorded:26Oad3431) to Recorded 6. Multi-Vitamins TABS; TAKE 2 TABLET Daily; Therapy: (Recorded:48Azn3251) to Recorded 7. Nabumetone 500 MG Oral Tablet; TAKE 2 TABLET TWICE DAILY; Therapy: 65Auw8107 to Recorded 8. [place]-3 Complex 192-251-11 MG-MG-UNIT Oral Capsule; Take one cap daily; Therapy: (Recorded:04Dec2014) to Recorded 9. Premarin 0.625 MG/GM Vaginal Cream; Insert 0.5 gram 3 times weekly at hs; Therapy: 85Six5584 to (Evaluate:02Irf4843) Recorded Allergies 1. Levaquin TABS Vitals Recorded: [...] pharyngitis; EMA = N; Verified Transmission to [facility] Last Updated By: Crystal Tafoya; 02/28/2018 8:20:24 AM Make sure to drink plenty of fluids and get plenty of rest, try tylenol OTC PRN for myalgias/chills RTC as scheduled or sooner if no improvement Refilled dicoclomine but needs FU apt for future refills Signatures Electronically signed by : Ariane Solares M.D.; Feb 28 2018 8:26AM MOTOR HOTEL MANAGER (Author) * Ariane Solares MD - 02/28/2018 8:00 AM CDT To whom it may concern, Hans was seen in my office today for an acute illness. Ariane Solares MD Electronically signed by:Ariane Solares M.D. Feb 28 2018 8:21AM MOTOR HOTEL MANAGER documented in this encounter Plan of Treatment Upcoming Encounters Date Type Department Care Team (Late st Contact Info) Description 11/14/2024 8:00 AM MOTOR HOTEL MANAGER Office Visit [facility] Multispecialty Care - [facility] 3 [facility], [address] [place] [phone] Montserrat Oliver NP 3 [facility] [address] [place] [address] 12/06/2024 9:30 AM MOTOR HOTEL MANAGER Appointment [facility] Open [facility] [address] [place], [place] [address] [place] [address] [address] [place] [address] 03/02/2025 3:20 PM CDT Office Visit [facility] Family & Internal Medicine [facility] [address] [place] [phone] [place] [address] [place] [address] documented as of this encounter Procedures Procedure [...] MICROBIOLOGY - GENERAL ORDERABLE S Final Result [facility] CONVERSION documented in this encounter Visit Diagnoses Not on filedocumented in this encounter
--- OUTSIDE RECORDS SUMMARY | 2024-11-13 17:56 | XMS_ITS | Encounter Summary ---
Author Organization [facility] Address [address] [place] [address]. [place] [address] [place] [address] Care Team Providers Care Lab Rn Name Role Phone Unavailable Primary Care Provider Unavailabl e Encounter Details Date Type Department Care Team (Late st Contact Info) Description 10/18/2015 Abstract [facility] Family & Internal Medicine [facility] [address] [place] [phone] [place] [id number] [place] [phone] Social History Tobacco Use Types Packs/Day Years [...] Comments Blood Pressure 106/58 10/18/2015 8:32 AM LEADERSHIP INTERN Pulse 82 10/18/2015 8:32 AM LEADERSHIP INTERN Temperature - - Respiratory Rate - - Oxygen Saturation - - Inhaled Oxygen Concentration - - Weight 79.8 kg (176 lb) 10/18/2015 8:32 AM LEADERSHIP INTERN Height 170.2 cm (5' 7 ) 10/18/2015 8:32 AM LEADERSHIP INTERN Body Mass Index 27.57 10/18/2015 8:32 AM LEADERSHIP INTERN documented in this encounter Progress Notes * Clement Young MD - 10/18/2015 8:30 AM CST Chief Complaint Pt here with c/o bilateral hip pain. History of Present Illness Hip Pain: [facility] presents with complaints of hip pain. Associated [...] Tablet; TAKE 1 TABLET DAILY DIRECTED; Therapy: (Recorded:[id number]) to Recorded Dispense: 0 Days ; #: Sufficient Tablet; Refill: 0; EMA = N; Record; Last Updated By: Yohana Rodriguez;06/26/2015 8:33:57 AM 2. Dicyclomine HCl - 20 MG Oral Tablet; TAKE 1 TABLET EVERY 6 HOURS NEEDED; Therapy: 80Cib2642 to (Evaluate:14Guq3913) Requested for: 83Wfa9695; Last Rx:[id number] Ordered Rx By: Clement Young; Dispense: 10 Days ; #:40 Tablet; Refill: 0; For: Irritable bowel syndrome;EMA = N; Verified Transmission to [email or web address]; Last Updated By: MicheletBMdr; 06/26/2015 9:19:21 AM 3. Enbrel 50 MG/ML Subcutaneous Solution Prefilled Syringe; INJECT 50MG ONCE A WEEK; Therapy: 38Dac2664 to (Evaluate:49Ohs6249) Recorded Dispense: 28 Days ; #: Sufficient ML; Refill: 0; EMA = N; Record; Last Updated By: Yohana Rodriguez; 06/26/2015 8:33:57 AM 4. Folic Acid 1 MG Oral Tablet; TAKE 1 TABLET DAILY; Therapy: 62Ase1202 to (Evaluate:56Kin2228) Recorded Dispense: 30 Days ; #:30 Tablet; Refill: 3; EMA = Y; Record; Last Updated By: Lashaun Kathleen; 12/04/2014 2:26:01 PM 5. Methotrexate Sodium 1 GM Injection Solution Reconstituted; INJECT 0.8 ML Weekly; Therapy: 05Awq5561 to Recorded Dispense: 0 Days ; #: [...] Multi-Vitamins TABS; TAKE 2 TABLET Daily; Therapy: (Recorded:14Ypk7783) to Recorded Dispense: 0 Days ; #: Sufficient Tablet; Refill: 0; EMA = N; Record; Last Updated By: Yohana Rodriguez;06/26/2015 8:33:56 AM 8. Nabumetone 500 MG Oral Tablet; TAKE 2 TABLET TWICE DAILY; Therapy: 79Taw8496 to Recorded Dispense: 0 Days ; #: Sufficient Tablet; Refill: 0; For: Inflammatory arthritis; EMA = N; Record; Last Updated By: Yohana Rodriguez; 10/18/2015 8:38:42 AM 9. [place]-3 Complex 192-251-11 MG-MG-UNIT Oral Capsule; Take one cap daily; Therapy: (Recorded:31Ivs4849) to Recorded Dispense: 0 Days ; #: Sufficient Capsule; Refill: 0; EMA = N; Record; Last Updated By: Lashaun Kathleen; 12/04/2014 2:26:00 PM 10. Premarin 0.625 MG/GM Vaginal Cream; Insert 0.5 gram 3 times weekly at hs; Therapy: 02Aug2014 to (Evaluate:03Shg5202) Recorded Dispense: 0 Days ; #: Sufficient X 30 GM Tube; Refill: 0; EMA = N; Record; Last Updated By: Lashaun Kathleen; 12/04/2014 2:26:01 PM Allergies 1. Levaquin TABS Recorded By: Tamie Cosby; 09/23/2012 2:04:37 PM Vitals Recorded: 18Qjb9204 08:32AM Heart Rate 82 Respiration 16 Systolic [...] Need Information - Financial Authorization Requested for: [id number] Ordered; For: Arthritis; Ordered By: Clement Young Performed: Due: 77Afs4172 1) Hip pain: will start physical therapy and will give some tramadol during PT and advised to continue NSAID's and follow up after PT Signatures Electronically signed by : Clement Young M.D.; Oct 23 2015 7:43PM LEADERSHIP INTERN (Author) documented in this encounter Plan of Treatment Upcoming Encounters Date Type Department Care Team (Late st Contact Info) Description 11/14/2024 8:00 AM LEADERSHIP INTERN Office Visit [facility] Multispecialty Care - [facility] 3 [facility], [address] [place] [phone] Montserrat Oliver NP 3 [facility] [address] [place] [address] 12/06/2024 9:30 AM LEADERSHIP INTERN Appointment [facility] Open MRI [address] [place] [address] [place] [address] [address] [place] [address] 03/02/2025 3:20 PM CDT Office Visit [facility] Family & Internal Medicine - [address] [address] Day[place] [phone] [place] [address]. [address] [place] [address] documented as of this encounter Visit Diagnoses Not on filedocumented in this encounter
--- OUTSIDE RECORDS SUMMARY | 2024-11-13 17:56 | XMS_ITS | Encounter Summary ---
Author Organization [facility] Address [address] [place] [address]. [place] [address] [place] [address] Care Team Providers Care Lace Sewer Name Role Phone Unavailable Primary Care Provider Unavailabl e Encounter Details Date Type Department Care Team (Latest Contact Info) Description 03/21/2014 Abstract [facility] [...] Contact Info) Description 11/14/2024 8:00 AM SENIOR TECHNICAL WRITER Office Visit [facility] Medical [facility] Multispecialty Care - [facility] 3 [facility], [address] [place] [address] Montserrat Oliver, DRY CLIPPER TENDER 3 [facility] [address] [place] [address] 12/06/2024 9:30 AM SENIOR TECHNICAL WRITER Appointment [facility] Open MRI [address] [place] [address] [place] [address] [address] [place] [address] 03/02/2025 3:20 PM CDT Office Visit [facility] Medical Group Family & Internal Medicine - [place] [address] [place] [address] [place] [address] [facility]. [address] [place] [address] documented as of this encounter Visit Diagnoses Not on filedocumented in this encounter
--- OUTSIDE RECORDS SUMMARY | 2024-11-13 17:56 | XMS_ITS | Encounter Summary ---
Author Organization [facility] Address [address] [place] [address]. [place] [address] [place] [address] Care Team Providers Care City Mail Carrier Name Role Phone Jaspreet Pearl MD Primary Care Provider Felipe archerelijah Encounter Details Date Type Department Care Team (Late st Contact Info) Description 11/19/2007 Abstract [facility] CONVERSION [address] [place] [address] Yahir Ramirez MD 3539 [facility] [address] [place] [address] Social History Tobacco Use Types [...] st Contact Info) Description 11/14/2024 8:00 AM BRIDGE SAW OPERATOR Office Visit [facility] Medical Group Multispecialty Care - [facility] 3 [facility], [address] [place] [address] Montserrat Oliver NP 3 [facility] [address] [place] [address] 12/06/2024 9:30 AM BRIDGE SAW OPERATOR Appointment [facility] Open MRI [address] [place] [address] [place] [address] [facility]. [address] [place] [address] 03/02/2025 3:20 PM CDT Office Visit [facility] Medical Group Family & Internal Medicine [facility] [address] [place] [address] [place] [address] [facility]. [address] [place], [place] [phone] documented as of this encounter Visit Diagnoses Not on filedocumented in this encounter Care Teams City Mail Carrier Relationship Specialty Start Date End Date Jaspreet Pearl MD PCP - General INTERNAL MEDICINE 11/30/18 02/18/23 documented as of this encounter
--- OUTSIDE RECORDS SUMMARY | 2024-11-13 17:56 | XMS_ITS | Encounter Summary ---
Author Organization [facility] Address [address] [place] [address]. [place] [address] [place] [address] Care Team Providers Care Shop Tech Name Role Phone Jaspreet Pearl MD Primary Care Provider Felipe archerelijah Encounter Details Date Type Department Care Team (Late st Contact Info) Description 04/02/2008 Abstract [facility] CONVERSION [address] [place] [address] Yahir Ramirez MD 3538 [facility] [address] [place] [address] Social History Tobacco Use Types [...] st Contact Info) Description 11/14/2024 8:00 AM FACTORY EXPERT Office Visit [facility] Medical Group Multispecialty Care - [facility] 3 [facility], [address] [place] [address] Montserrat Oliver NP 3 [facility] [address] [place] [address] 12/06/2024 9:30 AM FACTORY EXPERT Appointment [facility] Open MRI [address] [place] [address] [place] [address] [facility]. [address] [place] [address] 03/02/2025 3:20 PM CDT Office Visit [facility] Medical Group Family & Internal Medicine [facility] [address] [place] [address] [place] [address] [facility]. [address] [place], [place] [phone] documented as of this encounter Visit Diagnoses Not on filedocumented in this encounter Care Teams Shop Tech Relationship Specialty Start Date End Date Jaspreet Pearl MD PCP - General INTERNAL MEDICINE 11/30/18 02/18/23 documented as of this encounter
--- OUTSIDE RECORDS SUMMARY | 2024-11-13 17:56 | XMS_ITS | Encounter Summary ---
Author Organization [facility] Address [address] [place] [address]. [place] [address] [place] [address] Care Team Providers Care Diversified Crops I Farmworker Name Role Phone Jaspreet Pearl MD Primary Care Provider Felipe archerelijah Encounter Details Date Type Department Care Team (Late st Contact Info) Description 04/20/[address] [facility] Diagnostic Imaging [address] [place], [place] [address] Stalin Calderón MD [address] [id number] Social History Tobacco Use Types Packs/Day Years [...] (Late Contact Info) Description 11/14/2024 8:00 AM TRACK HELPER Office Visit [facility] Medical Group Multispecialty Care - [facility] 3 [facility], [address] [place] [address] Montserrat Oliver NP 3 [facility] [address] [place] [address] 12/06/2024 9:30 AM TRACK HELPER Appointment [facility] Open MRI [address] [place] [address] [place] [address] [facility] [address]. [address] [place], [place] [phone] 03/02/2025 3:20 PM CDT Office Visit [facility] Medical Group Family & Internal Medicine [facility] [address] [place] [address] [place] [address] [facility] [address]. [address] [place] [address] documented as of this encounter Visit Diagnoses Diagnosis Screening for malignant neoplasm of cervix Screening for malignant neoplasm of the cervix documented in this encounter Care Teams Diversified Crops I Farmworker Relationship Specialty Start Date End Date Jaspreet Pearl MD PCP - General INTERNAL MEDICINE 11/30/18 02/18/23 documented as of this encounter
--- OUTSIDE RECORDS SUMMARY | 2024-11-13 17:56 | XMS_ITS | Encounter Summary ---
Author Organization [facility] Address [address] [place] [address]. [place] [address] [place] [address] Care Team Providers Care Supervisor Major Appliance Assembly Name Role Phone Jaspreet Pearl MD Primary Care Provider Felipe archerelijah Encounter Details Date Type Department Care Team (Late st Contact Info) Description 11/06/2010 Abstract [facility] [address] [place] [address] [place] [address] [facility] TI[address] [address] Social History Tobacco Use Types Packs/Day Years [...] st Contact Info) Description 11/14/2024 8:00 AM BOOK REVIEWER Office Visit [facility] Medical Group Multispecialty Care - [facility] 3 [facility], [address] [place] [address] Montserrat Oliver NP 3 [facility] [address] [place] [address] 12/06/2024 9:30 AM BOOK REVIEWER [facility]ment [facility] [address] [place] [address] [place] [address] [facility]. [address] [place] [phone] 03/02/2025 3:20 PM CDT Office Visit [facility] Medical Group Family & Internal Medicine - [place] [address] [place] [address] [place] [address] [facility]. [address] [place] [phone] documented as of this encounter Visit Diagnoses Diagnosis Other malaise and fatigue documented in this encounter Care Teams Supervisor Major Appliance Assembly Relationship Specialty Start Date End Date Jaspreet Pearl MD PCP - General INTERNAL MEDICINE 11/30/18 02/18/23 documented as of this encounter
--- OUTSIDE RECORDS SUMMARY | 2024-11-13 17:56 | XMS_ITS | Encounter Summary ---
Author Organization [facility] Address [address] [place] [address]. [place] [address] [place] [address] Care Team Providers Care Staying Machine Operator Name Role Phone Jaspreet Pearl MD Primary Care Provider Felipe rangel Encounter Details Date Type Department Care Team (Late st Contact Info) Description 10/13/2014 Abstract [facility] [address] [place], [place] [id number] Paul Mathur MD [address] [facility] 1 [place], [place] [id number] Social History Tobacco Use Types Packs/Day Years [...] st Contact Info) Description 11/14/2024 8:00 AM TIE PULLER Office Visit [facility] Medical Group Multispecialty Care - [facility] 3 [facility], [address] [place] [address] Montserrat Oliver NP 3 [facility] [address] [place] [address] 12/06/2024 9:30 AM TIE PULLER [facility] [address] [place] [address] [place] [address] [facility] [address]. [address] [place] [address] 03/02/2025 3:20 PM CDT Office Visit [facility] Medical Group Family & Internal Medicine - [place] [address] [place] [address] [place] [address] [facility] [address] [place], [place] [phone] documented as of this encounter Visit Diagnoses Diagnosis Pain in joint, pelvic region and thigh documented in this encounter Care Teams Staying Machine Operator Relationship Specialty Start Date End Date Jaspreet Pearl MD PCP - General INTERNAL MEDICINE 11/30/18 02/18/23 documented as of this encounter
--- OUTSIDE RECORDS SUMMARY | 2024-11-13 17:56 | XMS_ITS | Encounter Summary ---
Author Organization [facility] Address [address] [place] [address]. [place] [address] [place] [address] Care Team Providers Care Hr Internship Name Role Phone Unavailable Primary Care Provider Unavailabl e Encounter Details Date Type Department Care Team (Latest Contact Info) Description 12/03/2014 Abstract [facility] Medical Group [...] Contact Info) Description 11/14/2024 8:00 AM EQUIPMENT MAINTENANCE ENGINEER Office Visit [facility] Medical [facility] Multispecialty Care - [facility] 3 [facility], [address] [place] [address] Montserrat Oliver, COTTON BALER 3 [facility] [address] [place] [address] 12/06/2024 9:30 AM EQUIPMENT MAINTENANCE ENGINEER Appointment [facility] Open MRI [address] [place] [address] [place] [address] [address] [place] [address] 03/02/2025 3:20 PM CDT Office Visit [facility] Medical Group Family & Internal Medicine - [place] [address] [place] [address] [place] [address] [facility]. [address] [place] [address] documented as of this encounter Visit Diagnoses Not on filedocumented in this encounter
--- OUTSIDE RECORDS SUMMARY | 2024-11-13 17:56 | XMS_ITS | Encounter Summary ---
Author Organization [facility] Address [address] [place] [address]. [place] [address] [place] [address] Care Team Providers Care Boiler/Chiller Technician Name Role Phone Jaspreet Pearl MD Primary Care Provider Felipe rangel Encounter Details Date Type Department Care Team (Late st Contact Info) Description 10/12/2007 Abstract [facility] CONVERSION [address] [facility] [place] [address] Efren Garcia, DIRECTOR TOXICOLOGY [address] [place] [address] Social History Tobacco Use Types Packs/Day Years [...] st Contact Info) Description 11/14/2024 8:00 AM GREENHOUSE TECHNICIAN Office Visit [facility] Medical Group Multispecialty Care - [facility] 3 [facility], [address] [place] [address] Montserrat Oliver, DOREEN 3 [facility] [address] [place] [address] 12/06/2024 9:30 AM GREENHOUSE TECHNICIAN Appointment [facility] Open MRI [address] [place] [address] [place] [address] [facility] [address]. [address] [place] [address] 03/02/2025 3:20 PM CDT Office Visit [facility] Medical Group Family & Internal Medicine [facility] [address] [place] [address] [place] [address] [facility] [address] [place], [place] [phone] documented as of this encounter Visit Diagnoses Not on filedocumented in this encounter Care Teams Boiler/Chiller Technician Relationship Specialty Start Date End Date Jaspreet Pearl MD PCP - General INTERNAL MEDICINE 11/30/18 02/18/23 documented as of this encounter
--- OUTSIDE RECORDS SUMMARY | 2024-11-13 17:56 | XMS_ITS | Encounter Summary ---
Author Organization [facility] Address [address] [place] [address]. [place] [address] [place] [address] Care Team Providers Care Automobile Service Station Attendant Name Role Phone Jaspreet Pearl MD Primary Care Provider Felipe waydylan Encounter Details Date Type Department Care Team (Late st Contact Info) Description 02/17/2010 Abstract [facility] CONVERSION [address] [place] [address] Stalin Calderón MD [address] [address] Social History Tobacco Use Types Packs/Day Years [...] st Contact Info) Description 11/14/2024 8:00 AM SPECIAL EDUCATION SUPERINTENDENT Office Visit [facility] Medical Group Multispecialty Care - [facility] 3 [facility], [address] [place] [address] Montserrat Oliver NP 3 [facility] [address] [place] [address] 12/06/2024 9:30 AM SPECIAL EDUCATION SUPERINTENDENT [facility]ment [facility] [address] [place] [address] [place] [address] [facility]. [address] [place] [address] 03/02/2025 3:20 PM CDT Office Visit [facility] Medical Group Family & Internal Medicine - [place] [address] [place] [address] [place] [address] [facility]. [address] [place] [phone] documented as of this encounter Visit Diagnoses Not on filedocumented in this encounter Care Teams Automobile Service Station Attendant Relationship Specialty Start Date End Date Jaspreet Pearl MD PCP - General INTERNAL MEDICINE 11/30/18 02/18/23 documented as of this encounter
--- OUTSIDE RECORDS SUMMARY | 2024-11-13 17:56 | XMS_ITS | Encounter Summary ---
Author Organization [facility] Address [address] [place] [address]. [place] [address] [place] [address] Care Team Providers Care Clothing Pattern Preparer Name Role Phone Unavailable Primary Care Provider Unavailabl e Encounter Details Date Type Department Care Team (Latest Contact Info) Description 03/26/2014 Abstract [facility] [...] Info) Description 11/14/2024 8:00 AM BIG DATA DEVELOPER Office Visit [facility] Medical [facility] Multispecialty Care - [facility] 3 [facility], [address] [place] [address] Montserrat Oliver, RESTAURANT LEAD 3 [facility] [address] [place] [address] 12/06/2024 9:30 AM BIG DATA DEVELOPER Appointment [facility] Open MRI [address] [place] [address] [place] [address] [address] [place] [address] 03/02/2025 3:20 PM CDT Office Visit [facility] Medical Group Family & Internal Medicine - [place] [address] [place] [address] [place] [address] [facility]. [address] [place] [address] documented as of this encounter Visit Diagnoses Not on filedocumented in this encounter
--- OUTSIDE RECORDS SUMMARY | 2024-11-13 17:56 | XMS_ITS | Encounter Summary ---
Author Organization [facility] Address [address] [place] [address]. [place] [address] [place] [address] Care Team Providers Care Senior Mechanical Engineer Name Role Phone Unavailable Primary Care Provider Unavailabl e Encounter Details Date Type Department Care Team (Latest Contact Info) Description 11/10/2012 Abstract [facility] Medical Group Social History Tobacco [...] st Contact Info) Description 11/14/2024 8:00 AM BRACELET FORMER Office Visit [facility] Medical [facility] Multispecialty Care - [facility] 3 [facility], [address] [place] [address] Montserrat Oliver, FLASH OVEN OPERATOR 3 [facility] [address] [place] [address] 12/06/2024 9:30 AM BRACELET FORMER Appointment [facility] Open MRI [address] [place] [address] [place] [address] [address] [place] [address] 03/02/2025 3:20 PM CDT Office Visit [facility] Medical Group Family & Internal Medicine - [place] [address] [place] [address] [place] [address] [facility]. [address] [place] [address] documented as of this encounter Visit Diagnoses Not on filedocumented in this encounter
--- OUTSIDE RECORDS SUMMARY | 2024-11-13 17:56 | XMS_ITS | Encounter Summary ---
Author Organization [facility] Address [address] [place] [address]. [place] [address] [place] [address] Care Team Providers Care Log Check Scaler Name Role Phone Jaspreet Pearl MD Primary Care Provider Felipe archerelijah Encounter Details Date Type Department Care Team (Late st Contact Info) Description 10/25/2010 Abstract [facility] [address] [place] [address] [place] [address] [facility] TIERNEY [address] [address] Social History Tobacco Use Types Packs/Day Years [...] st Contact Info) Description 11/14/2024 8:00 AM AGILE SCRUM COACH Office [facility] Medical Group Multispecialty Care - [facility] 3 [facility], [address] [place] [address] Montserrat Oliver NP 3 [facility] [address] [place] [address] 12/06/2024 9:30 AM AGILE SCRUM COACH [facility]ment [facility] [address] [place] [address] [place] [address] [facility]. [address] [place], [place] [address] 03/02/2025 3:20 PM CDT Office Visit [facility] Medical Group Family & Internal Medicine [facility] [address] [place] [address] [place] [address] [facility]. [address] [place] [address] documented as of this encounter Visit Diagnoses Diagnosis Cystitis Cystitis, unspecified documented in this encounter Care Teams Log Check Scaler Relationship Specialty Start Date End Date Jaspreet Pearl MD PCP - General INTERNAL MEDICINE 11/30/18 02/18/23 documented as of this encounter
--- OUTSIDE RECORDS SUMMARY | 2024-11-13 17:56 | XMS_ITS | Encounter Summary ---
Author Organization [facility] Address [address] [place] [address]. [place] [address] [place] [address] Care Team Providers Care Bereavement Counselor Name Role Phone Jaspreet Pearl MD Primary Care Provider Felipe rangel Encounter Details Date Type Department Care Team (Late st Contact Info) Description 09/11/2006 Abstract [facility] CONVERSION [address] [place] [address] , Generic Conversion, Social History Tobacco Use [...] (Late Contact Info) Description 11/14/2024 8:00 AM EMERGENCY GENERATOR MECHANIC Office Visit [facility] Medical Group Multispecialty Care - [facility] 3 [facility], [address] [place] [address] Montserrat Oliver, DOREEN 3 [facility] [address] [place] [address] 12/06/2024 9:30 AM EMERGENCY GENERATOR MECHANIC Appointment [facility] Open MRI [address] [facility] [address] [place] [address] [address] [place] [address] 03/02/2025 3:20 PM CDT Office Visit [facility] Medical Group Family & Internal Medicine - [address] [address] [place] [address] [place] [address] documented as of this encounter Visit Diagnoses Not on filedocumented in this encounter Care Teams Bereavement Counselor Relationship Specialty Start Date End Date Jaspreet Pearl MD PCP - General INTERNAL MEDICINE 11/30/18 02/18/23 documented as of this encounter
--- OUTSIDE RECORDS SUMMARY | 2024-11-13 17:56 | XMS_ITS | Encounter Summary ---
Author Organization [facility] Address [address] [place] [address]. [place] [address] [place] [address] Care Team Providers Care Adult Literacy Teacher Name Role Phone Unavailable Primary Care Provider Unavailabl e Encounter Details Date Type Department Care Team (Latest Contact Info) Description 09/30/2012 Abstract [facility] [place] [address] [address] Social History Tobacco Use Types [...] Comments Blood Pressure 124/76 09/30/2012 3:59 PM OPENER VERIFIER PACKER CUSTOMS Pulse 77 09/30/2012 3:59 PM OPENER VERIFIER PACKER CUSTOMS Temperature - - Respiratory Rate - - Oxygen Saturation - - Inhaled Oxygen Concentration - - Weight 70.8 kg (156 lb) 09/30/2012 3:59 PM OPENER VERIFIER PACKER CUSTOMS Height 170.2 cm (5' 7 ) 09/30/2012 3:59 PM OPENER VERIFIER PACKER CUSTOMS Body Mass Index 24.43 09/30/2012 3:59 PM OPENER VERIFIER PACKER CUSTOMS documented in this encounter Progress Notes * [...] JAIRO Muir; Nov 12 2012 8:51PM (Author) ER VERIFIER PACKER CUSTOMS documented in this encounter Plan of Treatment Upcoming Encounters Date Type Department Care Team (Late st Contact Info) Description 11/14/2024 8:00 AM OPENER VERIFIER PACKER CUSTOMS Office Visit [facility] Multispecialty Care - [address], [address] [place] [address] Montserrat Oliver NP 3 [facility] [address] [place] [address] 12/06/2024 9:30 AM OPENER VERIFIER PACKER CUSTOMS Appointment [facility] Open MRI [address] [place] [address] [place] [address] [place] [address] [place] [address] 03/02/2025 3:20 PM CDT Office Visit [facility] Family & Internal Medicine - [address] [address] [place] [address] [address] [place] [phone] documented as of this encounter Visit Diagnoses Not on filedocumented in this encounter
--- OUTSIDE RECORDS SUMMARY | 2024-11-13 17:56 | XMS_ITS | Encounter Summary ---
Author Organization [facility] Address [address] [place] [address]. [place] [address] [place] [address] Care Team Providers Care Supervisor Porcelain Department Name Role Phone Jaspreet Pearl MD Primary Care Provider Felipe archerelijah Encounter Details Date Type Department Care Team (Late st Contact Info) Description 06/06/2012 Abstract [facility] Diagnostic Imaging [address] [place], [place] [address] Stalin Calderón MD [address] [id number] Social History Tobacco Use Types Packs/Day Years [...] st Contact Info) Description 11/14/2024 8:00 AM RESCUE BOAT OPERATOR Office Visit [facility] Group Multispecialty Care - [facility] 3 [facility], [address] [place] [address] Montserrat Oliver NP 3 [facility] [address] [place] [address] 12/06/2024 9:30 AM RESCUE BOAT OPERATOR [facility] [address] [place] [address] [place] [address] [facility] [address] [place], [place] [address] 03/02/2025 3:20 PM CDT Office Visit [facility] Medical Group Family & Internal Medicine [facility] [address] [place] [address] [place] [address] [facility]. [address] [place] [address] documented as of this encounter Visit Diagnoses Diagnosis Other screening mammogram documented in this encounter Care Teams Supervisor Porcelain Department Relationship Specialty Start Date End Date Jaspreet Pearl MD PCP - General INTERNAL MEDICINE 11/30/18 02/18/23 documented as of this encounter
--- OUTSIDE RECORDS SUMMARY | 2024-11-13 17:56 | XMS_ITS | Encounter Summary ---
Author Organization [facility] Address [address] [place] [address]. [place] [address] [place] [address] Care Team Providers Care Spring Assembler Name Role Phone Unavailable Primary Care Provider Unavailabl e Encounter Details Date Type Department Care Team (Latest Contact Info) Description 12/18/2013 Abstract [facility] [place] [address] [address] A[address]HA [address] [place] [address] Social History Tobacco Use Types Packs/Day [...] st Contact Info) Description 11/14/2024 8:00 AM DOCK BOSS Office Visit [facility] - [facility] 3 [facility], [address] [place] [address] Montserrat Oliver NP 3 [facility] [address] [place] [address] 12/06/2024 9:30 AM DOCK BOSS Appointment [facility] Open MRI [address] [place] [address] [place] [address] [address] [place] [address] 03/02/2025 3:20 PM CDT Office Visit [facility] Medical Group Family & Internal Medicine - [place] [address] [place] [address] [place] [address] [facility] [address]. [address] [place] [address] documented as of this encounter Visit Diagnoses Not on filedocumented in this encounter
--- OUTSIDE RECORDS SUMMARY | 2024-11-13 17:56 | XMS_ITS | Encounter Summary ---
Author Organization [facility] Address [address] [place] [address]. [place] [address] [place] [address] Care Team Providers Care Launchman Name Role Phone Unavailable Primary Care Provider Unavailabl e Encounter Details Date Type Department Care Team (Late st Contact Info) Description 06/26/2015 Abstract [facility] Medical Group Family & Internal Medicine [facility] [address] [place] [address] [place] [address] [place], [place] [id number] Social History Tobacco Use Types Packs/Day Years [...] Tablet; TAKE 1 TABLET DAILY DIRECTED; Therapy: (Recorded:[id number]) to Recorded Dispense: 0 Days ; #: Sufficient Tablet; Refill: 0; EMA = N; Record; Last Updated By: Yohana Rodriguez;06/26/2015 8:33:57 AM 2. Enbrel 50 MG/ML Subcutaneous Solution Prefilled Syringe; INJECT 50MG ONCE A WEEK; Therapy: 06Osy3705 to (Evaluate:[id number]) Recorded Dispense: 28 Days ; #: Sufficient ML; Refill: 0; EMA = N; Record; Last Updated By: Yohana Rodriguez; 06/26/2015 8:33:57 AM 3. Folic Acid 1 MG Oral Tablet; TAKE 1 TABLET DAILY; Therapy: 01Ozh1465 to (Evaluate:[id number]) Recorded Dispense: 30 Days ; #:30 Tablet; [...] Multi-Vitamins TABS; TAKE 2 TABLET Daily; Therapy: (Recorded:[id number]) to Recorded Dispense: 0 Days ; #: Sufficient Tablet; Refill: 0; EMA = N; Record; Last Updated By: Yohana Rodriguez;06/26/2015 8:33:56 AM 7. Naproxen 500 MG Oral Tablet; take one tab bid; Therapy: 31Aug2014 to Recorded Dispense: 0 Days ; #: Sufficient Tablet; Refill: 0; For: Inflammatory arthritis; EMA = N; Record; Last Updated By: Lashaun Kathleen; 08/31/2014 4:36:01 PM 8. Porter-3 Complex 192-251-11 MG-MG-UNIT Oral Capsule; Take one cap daily; Therapy: (Recorded:04Dec2014) to Recorded Dispense: 0 Days ; #: Sufficient Capsule; Refill: 0; EMA = N; Record; Last Updated By: Lashaun Kathleen; 12/04/2014 2:26:00 PM 9. Premarin 0.625 MG/GM Vaginal Cream; Insert 0.5 gram 3 times weekly at hs; Therapy: 02Aug2014 to (Evaluate:19Kuv2615) Recorded Dispense: 0 Days ; #: Sufficient X 30 GM Tube; Refill: 0; EMA = N; Record; Last Updated By: Lashaun Kathleen; 12/04/2014 2:26:01 PM Allergies 1. Levaquin TABS Recorded By: Tamie Cosby; 09/23/2012 2:04:37 PM Vitals Recorded: [id number] 08:29AM Heart Rate 70 Respiration 16 Systolic [...] For: Anxiety; EMA = N; VerifiedTransmission to [facility]; Last Updated By: Samplesaint; 06/26/2015 9:19:21 AM Irritable bowel syndrome 2. Dicyclomine HCl - 20 MG Oral Tablet; TAKE 1 TABLET EVERY 6 HOURS NEEDED Rx By: Clement Young; Dispense: 10 Days ; #:40 Tablet; Refill: 0; For: Irritable bowel syndrome;EMA = N; Verified Transmission to [facility]; Last Updated By: Samplesaint; 06/26/2015 9:19:21 AM 1) Anxiety: She has [...] Clement Young M.D.; Jun 26 2015 3:56PM STRAW HAT PRESSER (Author) documented in this encounter Plan of Treatment Upcoming Encounters Date Type Department Care Team (Late st Contact Info) Description 11/14/2024 8:00 AM STRAW HAT PRESSER Office Visit [facility] Multispecialty Care - [facility] 3 [facility], [address] [place] [address] Montserrat Oliver NP 3 [facility] [address] [place] [address] 12/06/2024 9:30 AM STRAW HAT PRESSER Appointment [facility] Open MRI [address] [place] [address] [place] [address] [address] [place] [address] 03/02/2025 3:20 PM CDT Office Visit [facility] Family & Internal Medicine - [address] [address] [place] [address] [address] [place] [address] documented as of this encounter Visit Diagnoses Not on filedocumented in this encounter
--- OUTSIDE RECORDS SUMMARY | 2024-11-13 17:56 | XMS_ITS | Encounter Summary ---
Author Organization [facility] Address [address] [place] [address]. [place] [address] [place] [address] Care Team Providers Care Pump Mechanic Name Role Phone Jaspreet Pearl MD Primary Care Provider Felipe waydylan Encounter Details Date Type Department Care Team (Late st Contact Info) Description 03/19/2005 Abstract [facility] CONVERSION [address] [place] [address] Mathew Levine MD Social History Tobacco Use [...] (Late Contact Info) Description 11/14/2024 8:00 AM ACETYLENE GAS COMPRESSOR Office Visit [facility] Group Multispecialty Care - [facility] 3 [facility], [address] [place] [address] Montserrat Oliver NP 3 [facility] [address] [place] [address] 12/06/2024 9:30 AM ACETYLENE GAS COMPRESSOR Appointment [facility] Open MRI [address] [place] [address] [place] [address] [address] [place] [address] 03/02/2025 3:20 PM CDT Office Visit [facility] Medical Group Family & Internal Medicine - [address] [address] [place] [address] [place] [address] documented as of this encounter Visit Diagnoses Not on filedocumented in this encounter Care Teams Pump Mechanic Relationship Specialty Start Date End Date Jaspreet Pearl MD PCP - General INTERNAL MEDICINE 11/30/18 02/18/23 documented as of this encounter
--- OUTSIDE RECORDS SUMMARY | 2024-11-13 17:56 | XMS_ITS | Encounter Summary ---
Author Organization [facility] Address [address] [place] [address]. [place] [address] [place] [address] Care Team Providers Care Career Resource Technician Name Role Phone Jaspreet Pearl MD Primary Care Provider Felipe archerelijah Encounter Details Date Type Department Care Team (Late st Contact Info) Description 06/07/[address] [facility] Diagnostic Imaging [address] [place], [place] [address] Stalin Calderón MD [address] [id number] Social History Tobacco Use Types Packs/Day Years [...] Contact Info) Description 11/14/2024 8:00 AM DIE MECHANIC Office Visit [facility] Medical Group Multispecialty Care - [facility] 3 [facility], [address] [place] [address] Montserrat Oliver NP 3 [facility] [address] [place] [address] 12/06/2024 9:30 AM DIE MECHANIC [facility]ment [facility] [address] [place] [address] [place] [address] [facility] [address] [place], [place] [address] 03/02/2025 3:20 PM CDT Office Visit [facility] Medical Group Family & Internal Medicine [facility] [address] [place] [address] [place] [address] [facility]. [address] [place] [address] documented as of this encounter Visit Diagnoses Diagnosis Other screening mammogram documented in this encounter Care Teams Career Resource Technician Relationship Specialty Start Date End Date Jaspreet Pearl MD PCP - General INTERNAL MEDICINE 11/30/18 02/18/23 documented as of this encounter
--- OUTSIDE RECORDS SUMMARY | 2024-11-13 17:56 | XMS_ITS | Encounter Summary ---
Author Organization [facility] Address [address] [place] [address]. [place] [address] [place] [address] Care Team Providers Care Paper Rewinder Name Role Phone Jaspreet Pearl MD Primary Care Provider Felipe waydylan Encounter Details Date Type Department Care Team (Late st Contact Info) Description 03/18/2005 Abstract [facility] CONVERSION [address] [place] [address] Mathew Levine MD Social History Tobacco Use [...] (Late Contact Info) Description 11/14/2024 8:00 AM CORPORATE DIRECTOR OF HUMAN RESOURCES Office Visit [facility] Multispecialty Care - [facility] 3 [facility], [address] [place] [address] Montserrat Oliver NP 3 [facility] [address] [place] [address] 12/06/2024 9:30 AM CORPORATE DIRECTOR OF HUMAN RESOURCES Appointment [facility] Open MRI [address] [place] [address] [place] [address] [address] [place] [address] 03/02/2025 3:20 PM CDT Office Visit [facility] Medical Group Family & Internal Medicine - [address] [address] [place] [address] [place] [address] documented as of this encounter Visit Diagnoses Not on filedocumented in this encounter Care Teams Paper Rewinder Relationship Specialty Start Date End Date Jaspreet Pearl MD PCP - General INTERNAL MEDICINE 11/30/18 02/18/23 documented as of this encounter
--- OUTSIDE RECORDS SUMMARY | 2024-11-13 17:56 | XMS_ITS | Encounter Summary ---
Author Organization [facility] Address [address] [place] [address]. [place] [address] [place] [address] Care Team Providers Care Supervisory Forester Name Role Phone Unavailable Primary Care Provider Unavailabl e Encounter Details Date Type Department Care Team (Latest Contact Info) Description 12/29/2012 Abstract [facility] Medical Group Social History Tobacco Use Types [...] st Contact Info) Description 11/14/2024 8:00 AM GLAZIER APPRENTICE Office Visit [facility] Medical [facility] Multispecialty Care - [facility] 3 [facility], [address] [place] [address] Montserrat Oliver, BIRD RAISER 3 [facility] [address] [place] [address] 12/06/2024 9:30 AM GLAZIER APPRENTICE Appointment [facility] Open MRI [address] [place] [address] [place] [address] [address] [place] [address] 03/02/2025 3:20 PM CDT Office Visit [facility] Medical Group Family & Internal Medicine - [place] [address] [place] [address] [place] [address] [facility]. [address] [place] [address] documented as of this encounter Visit Diagnoses Not on filedocumented in this encounter
--- OUTSIDE RECORDS SUMMARY | 2024-11-13 17:56 | XMS_ITS | Encounter Summary ---
Author Organization [facility] Address [address] [place] [address]. [place] [address] [place] [address] Care Team Providers Care Management Expert Name Role Phone Unavailable Primary Care Provider Unavailabl e Encounter Details Date Type Department Care Team (Late st Contact Info) Description 09/23/[address] [facility] [address] [place], [place] [phone] Kings Elder MD Social History Tobacco Use [...] st Contact Info) Description 11/14/2024 8:00 AM OBSTETRICIAN AND GYNAECOLOGIST Office Visit [facility] Medical Group Multispecialty Care - [facility] 3 [facility], [address] [place] [address] Montserrat Oliver NP 3 [facility] [address] [place] [address] 12/06/2024 9:30 AM OBSTETRICIAN AND GYNAECOLOGIST Appointment [facility] Open MRI [address] [place] [address] [place] [address] [facility] [place] [address] 03/02/2025 3:20 PM CDT Office Visit [facility] Medical Group Family & Internal Medicine - [place] [address] [place] [address] Dayan[place] [address] [place] [address]. [address] [place], [place] [phone] documented as of this encounter Visit Diagnoses Not on filedocumented in this encounter
--- OUTSIDE RECORDS SUMMARY | 2024-11-13 17:56 | XMS_ITS | Encounter Summary ---
Author Organization [facility] Address [address] [place] [address]. [place] [address] [place] [address] Care Team Providers Care Bladder Changer Name Role Phone Unavailable Primary Care Provider Unavailabl e Encounter Details Date Type Department Care Team (Latest Contact Info) Description 10/18/2012 Abstract [facility] Social History Tobacco [...] with food in the evening daily; Therapy: [id number] to (Last Rx:[id number]) Signatures Electronically signed by : Tabitha Dong, ; Oct 18 2012 10:09AM (Author) ICATIONS MANAGER documented in this encounter Plan of Treatment Upcoming Encounters Date Type Department Care Team ( Contact Info) Description 11/14/2024 8:00 AM APPLICATIONS MANAGER Office Visit [facility] Medical Group Multispecialty Care - [address] [place] [address] Montserrat Oliver NP 3 [facility] [address] [place] [address] 12/06/2024 9:30 AM APPLICATIONS MANAGER Appointment [facility] Open MRI [address] [facility] [place] [address] [place] [address] [address] [place] [address] 03/02/2025 3:20 PM CDT Office Visit [facility] Medical Group Family & Internal Medicine - [address] [address] [place] [address] [address] [place] [address] documented as of this encounter Visit Diagnoses Not on filedocumented in this encounter
--- OUTSIDE RECORDS SUMMARY | 2024-11-13 17:56 | XMS_ITS | Encounter Summary ---
Author Organization [facility] Address [address] [place] [address]. [place] [address] [place] [address] Care Team Providers Care Seismograph Helper Name Role Phone Jaspreet Pearl MD Primary Care Provider Felipe rangel Encounter Details Date Type Department Care Team (Late st Contact Info) Description 04/23/2008 Abstract [facility] Services [address] [place] [address] Yahir Ramirez MD 3533 [facility] [address] [place] [address] Social History Tobacco Use Types [...] st Contact Info) Description 11/14/2024 8:00 AM METAL SORTER Office Visit [facility] Medical Group Multispecialty Care - [facility] 3 [facility], [address] [place] [address] Montserrat Oliver NP 3 [facility] [address] [place] [address] 12/06/2024 9:30 AM METAL SORTER [facility]ment [facility] [address] [place] [address] [place] [address] [facility] [address] [place], [place] [address] 03/02/2025 3:20 PM CDT Office Visit [facility] Medical Group Family & Internal Medicine [facility] [address] [place] [address] [place] [address] [facility]. [address] [place] [address] documented as of this encounter Visit Diagnoses Not on filedocumented in this encounter Care Teams Seismograph Helper Relationship Specialty Start Date End Date Jaspreet Pearl MD PCP - General INTERNAL MEDICINE 11/30/18 02/18/23 documented as of this encounter
--- OUTSIDE RECORDS SUMMARY | 2024-11-13 17:56 | XMS_ITS | Encounter Summary ---
Author Organization [facility] Address [address] [place] [address]. [place] [address] [place] [address] Care Team Providers Care Refund Specialist Name Role Phone Jaspreet Pearl MD Primary Care Provider Felipe rangel Encounter Details Date Type Department Care Team (Late st Contact Info) Description 09/05/2013 Abstract [facility] Diagnostic Imaging [address] [place] [address] Perez Cervantes MD [address]69 [place] [address] Social History Tobacco Use Types Packs/Day Years [...] Contact Info) Description 11/14/2024 8:00 AM HAND LAMINATOR Office Visit [facility] Medical Group Multispecialty Care - [facility] 3 [facility], [address] [place] [address] Montserrat Oliver NP 3 [facility] [address] [place] [address] 12/06/2024 9:30 AM HAND LAMINATOR Appointment [facility] Open MRI [address] [place] [address] [place] [address] [facility] [place], [place] [address] 03/02/2025 3:20 PM CDT Office Visit [facility] Medical Group Family & Internal Medicine - [place] [address] [place] [address] [place] [address] [facility]. [address] [place] [address] documented as of this encounter Visit Diagnoses Diagnosis Polyarthropathy or polyarthritis Unspecified polyarthropathy or polyarthritis, site unspecified documented in this encounter Care Teams Refund Specialist Relationship Specialty Start Date End Date Jaspreet Pearl MD PCP - General INTERNAL MEDICINE 11/30/18 02/18/23 documented as of this encounter
--- OUTSIDE RECORDS SUMMARY | 2024-11-13 17:56 | XMS_ITS | Encounter Summary ---
Author Organization [facility] Address [address] [place] [address]. [place] [address] [place] [address] Care Team Providers Care Bread Molder Name Role Phone Jaspreet Pearl MD Primary Care Provider Felipe archerelijah Encounter Details Date Type Department Care Team (Late st Contact Info) Description 03/02/2005 Abstract [facility] CONVERSION [address] [place] [address] Toney Elizondo MD [address]01 [place] [address] Social History Tobacco Use Types Packs/Day Years [...] Info) Description 11/14/2024 8:00 AM COLD ROLL OPERATOR Office Visit [facility] Medical Group Multispecialty Care - [facility] 3 [facility], [address] [place] [address] Montserrat Oliver NP 3 [facility] [address] [place] [address] 12/06/2024 9:30 AM COLD ROLL OPERATOR Appointment [facility] Open MRI [address] [place] [address] [place] [address] [facility] [address] [place], [place] [phone] 03/02/2025 3:20 PM CDT Office Visit [facility] Medical Group Family & Internal Medicine [facility] [address] [place] [address] [place] [address] [facility]. [address] [place], [place] [id number] documented as of this encounter Visit Diagnoses Not on filedocumented in this encounter Care Teams Bread Molder Relationship Specialty Start Date End Date Jaspreet Pearl MD PCP - General INTERNAL MEDICINE 11/30/18 02/18/23 documented as of this encounter
--- OUTSIDE RECORDS SUMMARY | 2024-11-13 17:56 | XMS_ITS | Encounter Summary ---
Author Organization [facility] Address [address] [place] [address]. [place] [address] [place] [address] Care Team Providers Care Boxing And Pressing Supervisor Name Role Phone Unavailable Primary Care Provider Unavailabl e Encounter Details Date Type Department Care Team (Latest Contact Info) Description 09/03/2014 Abstract [facility] Medical Group Social [...] st Contact Info) Description 11/14/2024 8:00 AM PRESIDENT PRACTICING UROLOGIST Office Visit [facility] Medical [facility] Multispecialty Care - [facility] 3 [facility], [address] [place] [address] Montserrat Oliver, JUICE PACKAGING MACHINES SETTER 3 [facility] [address] [place] [address] 12/06/2024 9:30 AM PRESIDENT PRACTICING UROLOGIST Appointment [facility] Open MRI [address] [place] [address] [place] [address] [address] [place] [address] 03/02/2025 3:20 PM CDT Office Visit [facility] Medical Group Family & Internal Medicine - [place] [address] [place] [address] [place] [address] [facility]. [address] [place] [address] documented as of this encounter Visit Diagnoses Not on filedocumented in this encounter
--- OUTSIDE RECORDS SUMMARY | 2024-11-13 17:56 | XMS_ITS | Encounter Summary ---
Author Organization [facility] Address [address] [place] [address]. [place] [address] [place] [address] Care Team Providers Care Precision Instrument Maker Name Role Phone Unavailable Primary Care Provider Unavailabl e Encounter Details Date Type Department Care Team (Latest Contact Info) Description 10/14/2012 Abstract [facility] [place] [address] [address] Social History Tobacco Use Types [...] Comments Blood Pressure 122/64 10/14/2012 9:28 AM LIBRARY PAGE Pulse 64 10/14/2012 9:28 AM LIBRARY PAGE Temperature - - Respiratory Rate - - Oxygen Saturation - - Inhaled Oxygen Concentration - - Weight 70.8 kg (156 lb) 10/14/2012 9:28 AM LIBRARY PAGE Height 170.2 cm (5' 7 ) 10/14/2012 9:28 AM LIBRARY PAGE Body Mass Index 24.43 10/14/2012 9:28 AM LIBRARY PAGE documented in this encounter Progress Notes * [...] Record; Last Updated By: Tamie Cosby 6. Belcamp-3 Complex CAPS; Therapy: (Recorded:14Oct2012) to Recorded; Dispense: [...] ; #:90 Tablet; Refill: 3;Verified Transmission to [facility] 2. TraMADol HCl 50 MG Oral Tablet; Take 1-2 tablets every 6 hours as needed; Therapy: 14Oct2012 to (Last Rx:14Oct2012); Edited Ordered; For: Arthritis (716.90); Rx By: Toney Munroe; Dispense: 0 Days ; #:60 Tablet; Refill: 0; Print Rx 3. CBC with Diff Requested for: 14Oct2012 Ordered; For: Arthritis (716.90); Ordered By: Toney Munroe Perform: [facility] Due:[id number] 4. CMP (Comprehensive Metabolic Profile) Requested for: [id number] Ordered; For: Arthritis (716.90); Ordered By: Toney Munroe Perform: [facility] Due:17Sgx6303 5. SED RATE (Erythrocyte Sedimentation Rate) Requested for: 97Dhc8759 Ordered; For: Arthritis (716.90); Ordered By: Toney Munroe Perform: [facility] Due:93Mzv0774 6. UA (Urinalysis) Requested for: 88Pos0887 Ordered; For: Fever (Symptom) (780.60); Ordered By: Toney Munroe Perform: [facility] Due: 69Goc5868 7. Urine Culture & Sensitivity Requested for: 14Oct2012 Ordered; For: Fever (Symptom) (780.60); Ordered By: Toney Munroe Perform: [facility] Due: [id number] we will call you at home [phone] about plan for today obtain pathology report from [facility] colonoscopy plant based diet handout unable to work for medical reasons starting 10-13-2012 call with response on Wednesday Discussion/Summary discussed with rheumatology fellow production statistical clerk, he will try to make appt with Dr. Perez Cervantes as soon as he returns next week from [place], [place] said would call back after discussing with his attendings Signatures Electronically signed by : Toney Munroe M.D.; Nov 05 2012 11:20PM (Author) ARY PAGE documented in this encounter Plan of Treatment Upcoming Encounters Date Type Department Care Team (Late st Contact Info) Description 11/14/2024 8:00 AM LIBRARY PAGE Office Visit [facility] Group Multispecialty Care - [facility] [address] [facility], [address] [place] [address] Montserrat Oliver NP 3 [facility] [address] [place] [address] 12/06/2024 9:30 AM LIBRARY PAGE Appointment [facility] Open MRI [address] [place] [address] [place] [address] [address] [place] [phone] 03/02/2025 3:20 PM CDT Office Visit [facility] Medical Group Family & Internal Medicine - [address] [address] [place] [address] [facility] [place] [phone] documented as of this encounter Visit Diagnoses Not on filedocumented in this encounter
--- OUTSIDE RECORDS SUMMARY | 2024-11-13 17:56 | XMS_ITS | Encounter Summary ---
Author Organization [facility] Address [address] [place] [address]. [place] [address] [place] [address] Care Team Providers Care Educational Assistant Name Role Phone Unavailable Primary Care Provider Unavailabl e Encounter Details Date Type Department Care Team (Latest Contact Info) Description 03/02/2013 Abstract [facility] Medical Group Social History Tobacco [...] st Contact Info) Description 11/14/2024 8:00 AM STRAP CUTTER Office Visit [facility] Medical [facility] Multispecialty Care - [facility] [address] [facility], [address] [place] [address] Montserrat Oliver, NARROW GAUGE OPERATOR 3 [facility] [address] [place] [address] 12/06/2024 9:30 AM STRAP CUTTER Appointment [facility] Open MRI [address] [place] [address] [place] [address] [address] [place] [address] 03/02/2025 3:20 PM CDT Office Visit [facility] Medical Group Family & Internal Medicine - [place] [address] [place] [address] [place] [address] [facility] [place] [address] documented as of this encounter Visit Diagnoses Not on filedocumented in this encounter
--- OUTSIDE RECORDS SUMMARY | 2024-11-13 17:56 | XMS_ITS | Encounter Summary ---
Author Organization [facility] Address [address] [place] [address]. [place] [address] [place] [address] Care Team Providers Care Paper Supervisor Name Role Phone Jaspreet Pearl MD Primary Care Provider Felipe rangel Encounter Details Date Type Department Care Team (Late st Contact Info) Description 09/16/2006 Abstract [facility] [address] [place] [address] , Generic Conversion, Social History Tobacco Use [...] (Late Contact Info) Description 11/14/2024 8:00 AM SUBASSEMBLIES WIRER Office Visit [facility] Medical Group Multispecialty Care - [facility] [address] [facility], [address] [place] [address] Montserrat Oliver, DOREEN 3 [facility] [address] [place] [address] 12/06/2024 9:30 AM SUBASSEMBLIES WIRER Appointment [facility] Open MRI [address] [facility] [place] [address] [place] [address] [address] [place] [address] 03/02/2025 3:20 PM CDT Office Visit [facility] Medical Group Family & Internal Medicine - [address] [address] [place] [address] [place] [address] documented as of this encounter Visit Diagnoses Not on filedocumented in this encounter Care Teams Paper Supervisor Relationship Specialty Start Date End Date Jaspreet Pearl MD PCP - General INTERNAL MEDICINE 11/30/18 02/18/23 documented as of this encounter
--- OUTSIDE RECORDS SUMMARY | 2024-11-13 17:56 | XMS_ITS | Encounter Summary ---
Author Organization [facility] Address [address] [place] [address]. [place] [address] [place] [address] Care Team Providers Care International Travel Consultant Name Role Phone Unavailable Primary Care Provider Unavailabl e Encounter Details Date Type Department Care Team (Latest Contact Info) Description 08/06/2015 Abstract [facility] [place] [address] [address] [place], [place] [id number] Social History Tobacco Use Types Packs/Day Years [...] st Contact Info) Description 11/14/2024 8:00 AM PLATING EQUIPMENT TENDER Office Visit [facility] Multispecialty Care - [facility] [address] [facility], [address] [place] [address] Montserrat Oliver NP 3 [facility] [address] [place] [address] 12/06/2024 9:30 AM PLATING EQUIPMENT TENDER Appointment [facility] Open MRI [address] [facility] [place] [address] [place] [address] [address] [place] [address] 03/02/2025 3:20 PM CDT Office Visit [facility] Medical Group Family & Internal Medicine - [place] [address] [place] [address] [place] [address] [facility] [place] [address] documented as of this encounter Visit Diagnoses Not on filedocumented in this encounter
--- OUTSIDE RECORDS SUMMARY | 2024-11-13 17:56 | XMS_ITS | Encounter Summary ---
Author Organization [facility] Address [address] [place] [address]. [place] [address] [place] [address] Care Team Providers Care Shop Tech Name Role Phone Unavailable Primary Care Provider Unavailabl e Encounter Details Date Type Department Care Team (Latest Contact Info) Description 04/02/2015 Abstract [facility] [place] [address] [address] [place], [place] [phone] Social History Tobacco Use Types Packs/Day Years [...] st Contact Info) Description 11/14/2024 8:00 AM COMPOSITION WORKER Office Visit [facility] Multispecialty Care - [facility] 3 [facility], [address] [place] [address] Montserrat Oliver NP 3 [facility] [address] [place] [address] 12/06/2024 9:30 AM COMPOSITION WORKER Appointment [facility] Open MRI [address] [facility] [place] [address] [place] [address] [address] [place] [address] 03/02/2025 3:20 PM CDT Office Visit [facility] Medical Group Family & Internal Medicine - [place] [address] [place] [address] [place] [address] [facility] [place] [address] documented as of this encounter Visit Diagnoses Not on filedocumented in this encounter
--- OUTSIDE RECORDS SUMMARY | 2024-11-13 17:56 | XMS_ITS | Encounter Summary ---
Author Organization [facility] Address [facility] [facility] [address] [place] [address] Care Team Providers Care Tracer Bullet Section Supervisor Name Role Phone Unavailable Primary Care Provider Unavailabl e Encounter Details Date Type Department Care Team (Latest Contact Info) Description 11/03/2012 Abstract [facility] [place] [address] [address] Social History Tobacco Use Types [...] CST Message On 11-02-2012 Perez Cervantes MD steel plate printer at [facility] called Erika is improving on diclofenac 50mg [...] stopping diclofenac because is is detoxed by [facility], and is starting prednisone 5mg PC BID. Current Meds 1. Bentyl CAPS; TAKE 1 CAPSULE EVERY 6 HOURS DAILY; Therapy: (Recorded:23Sep2012) to 2. CeleBREX CAPS; Therapy: (Recorded:14Oct2012) to 3. Diclofenac Sodium 50 MG Oral Tablet Delayed Release; 1 tablet with food QAM, 1 tablet with food at noon daily, 2 tablets with food in the evening daily; Therapy: 18Oct2012 to (Last Rx:[id number]) Requested for: 18Oct2012 4. Diclofenac Sodium 75 [...] CAPSULE ONCE DAILY; Therapy: (Recorded:23Sep2012) to 9. Drummond-3 Complex CAPS; Therapy: (Recorded:14Oct2012) to 10. TraMADol HCl 50 MG Oral Tablet; Take 1-2 tablets every 6 hours as needed; Therapy: 14Oct2012 to (Last Rx:14Oct2012) 11. Vitamin B12 TABS; Therapy: (Recorded:14Oct2012) to 12. Xanax 0.25 MG Oral Tablet; TAKE 1 TABLET DAILY; Therapy: (Recorded:23Sep2012) to 13. ZyrTEC-D Allergy & Congestion TB12; Therapy: (Recorded:14Oct2012) to RITY SYSTEMS ADMINISTRATOR documented in this encounter Plan of Treatment Upcoming Encounters Date Type Department Care Team (Late st Contact Info) Description 11/14/2024 8:00 AM SECURITY SYSTEMS ADMINISTRATOR Office Visit [facility] Medical Group Multispecialty Care - [address], [address] [place] [address] Montserrat Oliver NP [address] [facility] [address] [place] [address] 12/06/2024 9:30 AM SECURITY SYSTEMS ADMINISTRATOR Appointment [facility] Open MRI [address] [place] [address] [place] [address] [address] [place] [address] 03/02/2025 3:20 PM CDT Office Visit [facility] Medical Group Family & Internal Medicine - [address] [address] [place] [address] [address] [place] [phone] documented as of this encounter Visit Diagnoses Not on filedocumented in this encounter
--- OUTSIDE RECORDS SUMMARY | 2024-11-13 17:56 | XMS_ITS | Encounter Summary ---
Author Organization [facility] Address [address] [place] [address]. [place] [address] [place] [address] Care Team Providers Care Manager Market Intelligence Name Role Phone Jaspreet Pearl MD Primary Care Provider Felipe rangel Encounter Details Date Type Department Care Team (Late st Contact Info) Description 11/30/2005 Abstract [facility] [address] [place] [address] , Generic Conversion, Social History Tobacco Use [...] (Late Contact Info) Description 11/14/2024 8:00 AM FORESTRY SUPPORT SPECIALIST Office Visit [facility] Medical Group Multispecialty Care - [facility] [address] [facility], [address] [place] [address] Montserrat Oliver, DOREEN 3 [facility] [address] [place] [address] 12/06/2024 9:30 AM FORESTRY SUPPORT SPECIALIST Appointment [facility] Open MRI [address] [facility] [place] [address] [place] [address] [address] [place] [address] 03/02/2025 3:20 PM CDT Office Visit [facility] Medical Group Family & Internal Medicine - [address] [address] [place] [address] [place] [address] documented as of this encounter Visit Diagnoses Not on filedocumented in this encounter Care Teams Manager Market Intelligence Relationship Specialty Start Date End Date Jaspreet Pearl MD PCP - General INTERNAL MEDICINE 11/30/18 02/18/23 documented as of this encounter
--- OUTSIDE RECORDS SUMMARY | 2024-11-13 17:56 | XMS_ITS | Encounter Summary ---
Author Organization [facility] Address [address] [place] [address]. [place] [address] [place] [address] Care Team Providers Care Buncher Operator Name Role Phone Unavailable Primary Care Provider Unavailabl e Encounter Details Date Type Department Care Team (Latest Contact Info) Description 09/04/2013 Abstract [facility] Medical Group Social History [...] st Contact Info) Description 11/14/2024 8:00 AM YARN MAN Office Visit [facility] Medical [facility] Multispecialty Care - [facility] 3 [facility], [address] [place] [address] Montserrat Oliver, HAIR CUTTER 3 [facility] [address] [place] [address] 12/06/2024 9:30 AM YARN MAN Appointment [facility] Open MRI [address] [place] [address] [place] [address] [address] [place] [address] 03/02/2025 3:20 PM CDT Office Visit [facility] Medical Group Family & Internal Medicine - [place] [address] [place] [address] [place] [address] [facility]. [address] [place] [address] documented as of this encounter Visit Diagnoses Not on filedocumented in this encounter
--- OUTSIDE RECORDS SUMMARY | 2024-11-13 17:56 | XMS_ITS | Encounter Summary ---
Author Organization [facility] Address [address] [place] [address]. [place] [address] [place] [address] Care Team Providers Care Quill Winder Name Role Phone Jaspreet Pearl MD Primary Care Provider Felipe archerelijah Encounter Details Date Type Department Care Team (Late st Contact Info) Description 06/14/2015 Abstract [facility] Diagnostic Imaging [address] [place], [place] [address] Stalin Calderón MD [address] [id number] Social History Tobacco Use Types Packs/Day Years [...] (Late Contact Info) Description 11/14/2024 8:00 AM DRAMA DIRECTOR Office Visit [facility] Multispecialty Care - [facility] 3 [facility], [address] [place] [address] Montserrat Oliver NP 3 [facility] [address] [place] [address] 12/06/2024 9:30 AM DRAMA DIRECTOR [facility] [address] [place] [address] [place] [address] [facility] [place], [place] [phone] 03/02/2025 3:20 PM CDT Office Visit [facility] Medical Group Family & Internal Medicine [facility] [address] [place] [address] [place] [address] [facility]. [address] [place] [address] documented as of this encounter Visit Diagnoses Diagnosis Other screening mammogram documented in this encounter Care Teams Quill Winder Relationship Specialty Start Date End Date Jaspreet Pearl MD PCP - General INTERNAL MEDICINE 11/30/18 02/18/23 documented as of this encounter
--- OUTSIDE RECORDS SUMMARY | 2024-11-13 17:56 | XMS_ITS | Encounter Summary ---
Author Organization [facility] Address [address] [place] [address]. [place] [address] [place] [address] Care Team Providers Care Roving Marker Name Role Phone Unavailable Primary Care Provider Unavailabl e Encounter Details Date Type Department Care Team (Late st Contact Info) Description 08/31/2014 Abstract [facility] Medical Group Family & Internal Medicine - [place] [address] [place] [address] [place] [address] [place], [place] [id number] Social History Tobacco Use Types Packs/Day Years [...] She states she was told by her experimental machinist that the problem in her hip is [...] tablet by mouth twice a day; Therapy: 02Lxv2916 to (Evaluate:72Gsw4649); Last Rx:12May2013 Ordered Rx By: Toney Munroe; [...] with food in the evening daily; Therapy: 61Iee5277 to (Last Rx:36Jxw6955) Requested for: 15Moc4023 Ordered Rx By: Toney Munroe; Dispense: 0 Days ; #:120 Tablet Delayed Release; Refill: 0; For: Health Maintenance; EMA = N; Verified Transmission to [facility] Last Updated By: Tabitha Dong; 08/31/2014 4:36:00 PM 4. Diclofenac Sodium 75 MG Oral Tablet Delayed Release; TAKE ONE TABLET BY MOUTH TWICE A DAY WITH FOOD; Therapy: 45Cvq4320 to (Evaluate:16Nov2012) Requested for: 56Slj3409; Last Rx:[id number] Ordered Rx By: Toney Munroe; Dispense: 30 Days ; #:60 Tablet Delayed Release; Refill: 0; For: Health Maintenance; EMA = N; Verified Transmission to [facility] Last Updated By: Tabitha Dong; 08/31/2014 4:36:00 PM 5. Dicyclomine HCl - 10 MG Oral Capsule; TAKE 1-2 CAPS BY MOUTH 4 TIMES A DAY; Therapy: 92Jas9343 to (Last Rx:[id number]) Requested for: 87Uka2210 Ordered Rx By: Toney Munroe; Dispense: 0 Days ; #:240 Capsule; Refill: 0; For: Health Maintenance; EMA = N; Verified Transmission to [facility] Last Updated By: Tabitha Dong; 08/31/2014 4:35:59 PM 6. Enbrel 50 MG/ML Subcutaneous Solution Prefilled Syringe; Therapy: 01Mpw9297 to Recorded Dispense: 28 Days ; #:4 SOSY; Refill: 0; EMA = N; Record; Last Updated By: Lashaun Kathleen; 08/31/2014 4:36:01 PM 7. Folic Acid 1 MG Oral Tablet; Therapy: 02Cik3368 to Recorded Dispense: 90 Days ; #:90 [...] 9. Methotrexate 2.5 MG Oral Tablet; Therapy: 56Wzh5792 to Recorded Dispense: 90 Days ; #:104 [...] For: Arthritis; EMA = N; [facility]. 12. Multi-Vitamin TABS; Therapy: (Recorded:14Oct2012) to [...] 14. Naproxen 500 MG Oral Tablet; Therapy: 74Xtl0977 to Recorded Dispense: 90 Days ; #:180 TABS; Refill: 0; EMA = Y; Record; Last Updated By: Lashaun Kathleen; 08/31/2014 4:36:01 PM 15. NexIUM 40 MG Oral Capsule Delayed Release; take 1 capsule twice a day Requested for: 00Hrd0318; Last Rx:[id number] Ordered Rx By: Toney Munroe; Dispense: 30 Days ; #:60 Capsule Delayed Release; Refill: 3; For: Esophageal reflux; EMA = N; Verified Transmission to [facility]; Last Updated By: Tabitha Dong; 08/31/2014 4:35:59 PM 16. Sloan-3 Complex CAPS; Therapy: (Recorded:14Oct2012) to Recorded Dispense: 0 Days ; #: Sufficient CAPS; Refill: 0; EMA = N; Record; Last Updated By: Asmita Coley; 10/14/2012 9:33:47 AM 17. Premarin 0.625 MG/GM Vaginal Cream; Therapy: 31Ltg8718 to Recorded Dispense: 30 Days ; #:30 [...] Updated By: Asmita Coley; 10/14/2012 9:33:47 AM 20. Xanax 0.25 MG [...] affect: Normal. Assessment 1. Hip pain, left (669.45) (Y96.022) Plan Arthritis 1. Stop: Mirtazapine 15 MG Oral Tablet Rx By: Toney Munroe; Dispense: 90 Days ; #:90 Tablet; Refill: 3; For: Arthritis; EMA = N; Sent To:[facility]; Last Updated By: Lashaun Kathleen; 08/31/2014 4:36:00 PM Esophageal reflux 2. Stop: NexIUM 40 MG Oral Capsule Delayed Release Rx By: Toney Munroe; Dispense: 30 Days ; #:60 Capsule Delayed Release; Refill: 3; For: Esophageal reflux; EMA = N; Sent To: [facility]; Last Updated By: Lashaun Kathleen; 08/31/2014 4:35:59PM [...] Health Maintenance; EMA = N; Sent To: [facility]; Last Updated By: Lashaun Kathleen; 08/31/2014 4:36:00PM 5. Stop: Diclofenac Sodium 75 MG Oral Tablet Delayed Release Rx By: Toney Munroe; Dispense: 30 Days ; #:60 Tablet Delayed Release; Refill: 0; For: Health Maintenance; EMA = N; Sent To: [facility]; Last Updated By: Lashaun Kathleen; 08/31/2014 4:36:00PM 6. Stop: Dicyclomine HCl - 10 MG Oral Capsule Rx By: Toney Munroe; Dispense: 0 Days ; #:240 Capsule; Refill: 0; For: Health Maintenance; EMA = N; Sent To: [facility]; Last Updated By: Lashaun Kathleen; 08/31/2014 4:35:59 [...] Clement Young M.D.; Sep 18 2014 3:03PM MOBILE HEALTH VEHICLE OPERATOR (Author) documented in this encounter Plan of Treatment Upcoming Encounters Date Type Department Care Team (Late st Contact Info) Description 11/14/2024 8:00 AM MOBILE HEALTH VEHICLE OPERATOR Office Visit [facility] Multispecialty Care - [address], [address] [place] [phone] Montserrat Oliver NP 3 [facility] [address] [place] [address] 12/06/2024 9:30 AM MOBILE HEALTH VEHICLE OPERATOR Appointment [facility] Open MRI [address] [place] [address] [place] [address] [facility] [address] [place] [phone] 03/02/2025 3:20 PM CDT Office Visit [facility] Family & Internal Medicine - [address] [address] [place] [address] [address] [place] [address] documented as of this encounter Visit Diagnoses Not on filedocumented in this encounter
--- OUTSIDE RECORDS SUMMARY | 2024-11-13 17:56 | XMS_ITS | Encounter Summary ---
Author Organization [facility] Address [address] [place] [address]. [place] [address] [place] [address] Care Team Providers Care Air Brake Adjuster Name Role Phone Jaspreet Pearl MD Primary Care Provider Felipe archerelijah Encounter Details Date Type Department Care Team (Late st Contact Info) Description 10/14/2012 Abstract [facility] [address] [place] [address] [place] [address] [address] Social History Tobacco Use Types Packs/Day Years [...] st Contact Info) Description 11/14/2024 8:00 AM LEATHER SPONGER Office Visit [facility] Medical Group Multispecialty Care - [facility] 3 [facility], [address] [place] [address] Montserrat Oliver NP 3 [facility] [address] [place] [address] 12/06/2024 9:30 AM LEATHER SPONGER [facility]ment [facility] [address] [place] [address] [place] [address] [facility] [address]. [address] [place], [place] [address] 03/02/2025 3:20 PM CDT Office Visit [facility] Medical Group Family & Internal Medicine - [place] [address] [place] [address] [place] [address] [facility]. [address] [place] [address] documented as of this encounter Visit Diagnoses Diagnosis Arthropathy Arthropathy, unspecified, site unspecified documented in this encounter Care Teams Air Brake Adjuster Relationship Specialty Start Date End Date Jaspreet Pearl MD PCP - General INTERNAL MEDICINE 11/30/18 02/18/23 documented as of this encounter
--- OUTSIDE RECORDS SUMMARY | 2024-11-13 17:56 | XMS_ITS | Encounter Summary ---
Author Organization [facility] Address [address] [place] [address]. [place] [address] [place] [address] Care Team Providers Care Irish Moss Gatherer Name Role Phone Unavailable Primary Care Provider Unavailabl e Encounter Details Date Type Department Care Team (Latest Contact Info) Description 11/24/2012 Abstract [facility] Medical Group Social History Tobacco Use [...] st Contact Info) Description 11/14/2024 8:00 AM SLATER APPRENTICE Office Visit [facility] Medical [facility] Multispecialty Care - [facility] 3 [facility], [address] [place] [address] Montserrat Oliver, GUN EXAMINER 3 [facility] [address] [place] [address] 12/06/2024 9:30 AM SLATER APPRENTICE Appointment [facility] Open MRI [address] [place] [address] [place] [address] [address] [place] [address] 03/02/2025 3:20 PM CDT Office Visit [facility] Medical Group Family & Internal Medicine - [place] [address] [place] [address] [place] [address] [facility]. [address] [place] [address] documented as of this encounter Visit Diagnoses Not on filedocumented in this encounter
--- OUTSIDE RECORDS SUMMARY | 2024-11-13 17:56 | XMS_ITS | Encounter Summary ---
Author Organization [facility] Address [address] [place] [address]. [place] [address] [place] [address] Care Team Providers Care Schedule Analyst Name Role Phone Jaspreet Pearl MD Primary Care Provider Felipe waydylan Encounter Details Date Type Department Care Team (Late st Contact Info) Description 01/26/2009 Abstract [facility] [address] [place] [address] Stalin Calderón MD [address] [address] Social History Tobacco Use Types Packs/Day Years [...] Contact Info) Description 11/14/2024 8:00 AM NETWORK COMMUNICATIONS ENGINEER Office Visit [facility] Medical Group Multispecialty Care - [facility] 3 [facility], [address] [place] [address] Montserrat Oliver NP 3 [facility] [address] [place] [address] 12/06/2024 9:30 AM NETWORK COMMUNICATIONS ENGINEER [facility]ment [facility] [address] [place] [address] [place] [address] [facility]. [address] [place] [address] 03/02/2025 3:20 PM CDT Office Visit [facility] Medical Group Family & Internal Medicine - [place] [address] [place] [address] [place] [address] [facility]. [address] [place] [id number] documented as of this encounter Visit Diagnoses Not on filedocumented in this encounter Care Teams Schedule Analyst Relationship Specialty Start Date End Date Jaspreet Pearl MD PCP - General INTERNAL MEDICINE 11/30/18 02/18/23 documented as of this encounter
--- OUTSIDE RECORDS SUMMARY | 2024-11-13 17:56 | XMS_ITS | Encounter Summary ---
Author Organization [facility] Address [address] [place] [address]. [place] [address] [place] [address] Care Team Providers Care Account Development Associate Name Role Phone Unavailable Primary Care Provider Unavailabl e Encounter Details Date Type Department Care Team (Late st Contact Info) Description 12/04/2014 Abstract [facility] Medical Group Family & Internal Medicine [facility] [address] [place] [address] [place] [id number] [place] [id number] Social History Tobacco Use Types Packs/Day Years [...] Comments Blood Pressure 114/70 12/04/2014 2:19 PM ENGRAVER OPTICAL FRAMES Pulse 70 12/04/2014 2:19 PM ENGRAVER OPTICAL FRAMES Temperature - - Respiratory Rate - - Oxygen Saturation - - Inhaled Oxygen Concentration - - Weight 72.1 kg (159 lb) 12/04/2014 2:19 PM ENGRAVER OPTICAL FRAMES Height 170.2 cm (5' 7 ) 12/04/2014 2:19 PM ENGRAVER OPTICAL FRAMES Body Mass Index 24.9 12/04/2014 2:19 PM ENGRAVER OPTICAL FRAMES documented in this encounter Progress Notes * [...] 50 MG/ML Subcutaneous Solution Prefilled Syringe; Therapy: [id number] to Recorded Dispense: 28 Days ; #:4 SOSY; Refill: 0; EMA = N; Record; Last Updated By: Lashaun Kathleen; 08/31/2014 4:36:01 PM 2. Folic Acid 1 MG Oral Tablet; TAKE 1 TABLET DAILY; Therapy: [id number] to (Evaluate:[id number]) Recorded Dispense: 30 Days ; #:30 Tablet; [...] By: Lashaun Kathleen; 08/31/2014 4:36:01 PM 7. Two Dot-3 Complex 192-251-11 MG-MG-UNIT Oral Capsule; Take one cap daily; Therapy: (Recorded:04Dec2014) to Recorded Dispense: 0 Days ; #: Sufficient Capsule; Refill: 0; EMA = N; Record; Last Updated By: Lashaun Kathleen; 12/04/2014 2:26:00 PM 8. Premarin 0.625 MG/GM Vaginal Cream; Insert 0.5 gram 3 times weekly at hs; Therapy: 02Aug2014 to (Evaluate:[id number]) Recorded Dispense: 0 Days ; #: Sufficient [...] bronchitis; EMA = N; Verified Transmission to [facility]; Last Updated By: Crystal Tafoya; 12/04/2014 2:41:02PM [...] Clement Young M.D.; Dec 04 2014 8:14PM ENGRAVER OPTICAL FRAMES (Author) documented in this encounter Plan of Treatment Upcoming Encounters Date Type Department Care Team (Late st Contact Info) Description 11/14/2024 8:00 AM ENGRAVER OPTICAL FRAMES Office Visit [facility] Multispecialty Care - [facility] 3 [facility], [address] [place] [address] Montserrat Oliver NP 3 [facility] [address] [place] [address] 12/06/2024 9:30 AM ENGRAVER OPTICAL FRAMES Appointment [facility] Open MRI [address] [place] [address] [place] [address] [facility] Darlene. [address] [place] [address] 03/02/2025 3:20 PM CDT Office Visit [facility] Family & Internal Medicine - [address] [address] [place] [address] [address] [place] [address] documented as of this encounter Visit Diagnoses Not on filedocumented in this encounter
--- OUTSIDE RECORDS SUMMARY | 2024-11-13 17:56 | XMS_ITS | Encounter Summary ---
Author Organization [facility] Address [address] [place] [address]. [place] [address] [place] [address] Care Team Providers Care Will Call Order Clerk Name Role Phone Jaspreet Pearl MD Primary Care Provider Felipe archerelijah Encounter Details Date Type Department Care Team (Late st Contact Info) Description 06/11/2014 Abstract [facility] [address] [place], [place] [address] Stalin Calderón MD [address] [id number] Social History Tobacco Use Types Packs/Day Years [...] st Contact Info) Description 11/14/2024 8:00 AM ACCESS SERVICES ASSISTANT Office Visit [facility] Medical Group Multispecialty Care - [facility] 3 [facility], [address] [place] [address] Montserrat Oliver NP 3 [facility] [address] [place] [address] 12/06/2024 9:30 AM ACCESS SERVICES ASSISTANT [facility]ment [facility] [address] [place] [address] [place] [address] [facility] [address] [place], [place] [address] 03/02/2025 3:20 PM CDT Office Visit [facility] Medical Group Family & Internal Medicine [facility] [address] [place] [address] [place] [address] [facility]. [address] [place] [address] documented as of this encounter Visit Diagnoses Diagnosis Other screening mammogram documented in this encounter Care Teams Will Call Order Clerk Relationship Specialty Start Date End Date Jaspreet Pearl MD PCP - General INTERNAL MEDICINE 11/30/18 02/18/23 documented as of this encounter
--- OUTSIDE RECORDS SUMMARY | 2024-11-13 17:56 | XMS_ITS | Encounter Summary ---
Author Organization [facility] Address [address] [place] [address]. [place] [address] [place] [address] Care Team Providers Care Bmet Name Role Phone Jaspreet Pearl MD Primary Care Provider Felipe rangel Encounter Details Date Type Department Care Team (Late st Contact Info) Description 10/14/2004 Abstract [facility] [address] [place] [address] , Generic Conversion, Social History Tobacco Use [...] (Late Contact Info) Description 11/14/2024 8:00 AM RACKET STRINGER Office Visit [facility] Medical Group Multispecialty Care - [facility] 3 [facility], [address] [place] [address] Montserrat Oliver, DOREEN 3 [facility] [address] [place] [address] 12/06/2024 9:30 AM RACKET STRINGER Appointment [facility] Open MRI [address] [place] [address] [place] [address] [address] [place] [address] 03/02/2025 3:20 PM CDT Office Visit [facility] Medical Group Family & Internal Medicine - [address] [address] [place] [address] [place] [address] documented as of this encounter Visit Diagnoses Not on filedocumented in this encounter Care Teams Bmet Relationship Specialty Start Date End Date Jaspreet Pearl MD PCP - General INTERNAL MEDICINE 11/30/18 02/18/23 documented as of this encounter
--- OUTSIDE RECORDS SUMMARY | 2024-11-13 17:56 | XMS_ITS | Encounter Summary ---
Author Organization [facility] Address [address] [place] [address]. [place] [address] [place] [address] Care Team Providers Care Marketing Recruiter Name Role Phone Jaspreet Pearl MD Primary Care Provider Felipe waydylan Encounter Details Date Type Department Care Team (Late st Contact Info) Description 03/03/2005 Abstract [facility] [address] [place] [address] Mathew Levine MD Social History Tobacco Use [...] (Late Contact Info) Description 11/14/2024 8:00 AM INJECTION MOLDING SUPERVISOR Office Visit [facility] Medical Group Multispecialty Care - [facility] 3 [facility], [address] [place] [address] Montserrat Oliver NP 3 [facility] [address] [place] [address] 12/06/2024 9:30 AM INJECTION MOLDING SUPERVISOR Appointment [facility] Open MRI [address] [place] [address] [place] [address] [address] [place] [address] 03/02/2025 3:20 PM CDT Office Visit [facility] Medical Group Family & Internal Medicine - [address] [address] [place] [address] [place] [address] documented as of this encounter Visit Diagnoses Not on filedocumented in this encounter Care Teams Marketing Recruiter Relationship Specialty Start Date End Date Jaspreet Pearl MD PCP - General INTERNAL MEDICINE 11/30/18 02/18/23 documented as of this encounter
--- OUTSIDE RECORDS SUMMARY | 2024-11-13 17:56 | XMS_ITS | Encounter Summary ---
Author Organization [facility] Address [address] [place] [address]. [place] [address] [place] [address] Care Team Providers Care Land Lease Information Clerk Name Role Phone Unavailable Primary Care Provider Unavailabl e Encounter Details Date Type Department Care Team (Latest Contact Info) Description 10/05/2012 Abstract [facility] Medical Group Social History Tobacco [...] Contact Info) Description 11/14/2024 8:00 AM AUTOMATIC DEVELOPER Office Visit [facility] Medical [facility] Multispecialty Care - [facility] 3 [facility], [address] [place] [address] Montserrat Oliver, BYPRODUCT ENGINEER 3 [facility] [address] [place] [address] 12/06/2024 9:30 AM AUTOMATIC DEVELOPER Appointment [facility] Open MRI [address] [place] [address] [place] [address] [address] [place] [address] 03/02/2025 3:20 PM CDT Office Visit [facility] Medical Group Family & Internal Medicine - [place] [address] [place] [address] [place] [address] [facility]. [address] [place] [address] documented as of this encounter Visit Diagnoses Not on filedocumented in this encounter
--- OUTSIDE RECORDS SUMMARY | 2024-11-13 17:56 | XMS_ITS | Encounter Summary ---
Author Organization [facility] Address [address] [place] [address]. [place] [address] [place] [address] Care Team Providers Care Application Programmer Analyst Name Role Phone Unavailable Primary Care Provider Unavailabl e Encounter Details Date Type Department Care Team (Latest Contact Info) Description 10/20/2012 Abstract [facility] Medical Group Social [...] st Contact Info) Description 11/14/2024 8:00 AM ICE GUARD SKATING RINK Office Visit [facility] Medical [facility] Multispecialty Care - [facility] 3 [facility], [address] [place] [address] Montserrat Oliver, PUBLIC WORKS COMMISSIONER 3 [facility] [address] [place] [address] 12/06/2024 9:30 AM ICE GUARD SKATING RINK Appointment [facility] Open MRI [address] [place] [address] [place] [address] [address] [place] [address] 03/02/2025 3:20 PM CDT Office Visit [facility] Medical Group Family & Internal Medicine - [place] [address] [place] [address] [place] [address] [facility]. [address] [place] [address] documented as of this encounter Visit Diagnoses Not on filedocumented in this encounter
--- OUTSIDE RECORDS SUMMARY | 2024-11-13 17:56 | XMS_ITS | Encounter Summary ---
Author Organization [facility] Address [address] [place] [address]. [place] [address] [place] [address] Care Team Providers Care Fitness Coordinator Name Role Phone Jaspreet Pearl MD Primary Care Provider Felipe rangel Encounter Details Date Type Department Care Team (Late st Contact Info) Description 09/24/2012 Abstract [facility] 9515 [place] [address] Efren Garcia, [facility] [address] [place] [address] Social History Tobacco Use Types Packs/Day Years [...] st Contact Info) Description 11/14/2024 8:00 AM MEMS DEVICE SCIENTIST Office Visit [facility] Medical Group Multispecialty Care - [facility] 3 [facility], [address] [place] [address] Montserrat Oliver, DOREEN 3 [facility] [address] [place] [address] 12/06/2024 9:30 AM MEMS DEVICE SCIENTIST Appointment [facility] Open MRI [address] [place] [address] [place] [address] [facility]. [address] [place], [place] [address] 03/02/2025 3:20 PM CDT Office Visit [facility] Medical Group Family & Internal Medicine - [place] [address] [place] [address] [place] [address] [facility]. [address] [place] [address] documented as of this encounter Visit Diagnoses Diagnosis Irritable colon Irritable bowel syndrome documented in this encounter Care Teams Fitness Coordinator Relationship Specialty Start Date End Date Jaspreet Pearl MD PCP - General INTERNAL MEDICINE 11/30/18 02/18/23 documented as of this encounter
--- OUTSIDE RECORDS SUMMARY | 2024-11-13 17:56 | XMS_ITS | Encounter Summary ---
Author Organization [facility] Address [address] [place] [address]. [place] [address] [place] [address] Care Team Providers Care Production Hand Name Role Phone Unavailable Primary Care Provider Unavailabl e Encounter Details Date Type Department Care Team (Latest Contact Info) Description 11/17/2012 Abstract [facility] Medical Group Social History Tobacco [...] Contact Info) Description 11/14/2024 8:00 AM POULTRY FARMER Office Visit [facility] Medical [facility] Multispecialty Care - [facility] 3 [facility], [address] [place] [address] Montserrat Oliver, COATER HELPER 3 [facility] [address] [place] [address] 12/06/2024 9:30 AM POULTRY FARMER Appointment [facility] Open MRI [address] [place] [address] [place] [address] [address] [place] [address] 03/02/2025 3:20 PM CDT Office Visit [facility] Medical Group Family & Internal Medicine - [place] [address] [place] [address] [place] [address] [facility]. [address] [place] [address] documented as of this encounter Visit Diagnoses Not on filedocumented in this encounter
--- OUTSIDE RECORDS SUMMARY | 2024-11-13 17:56 | XMS_ITS | Encounter Summary ---
Author Organization [facility] Address [address] [place] [address]. [place] [address] [place] [address] Care Team Providers Care Windows Application Packager Name Role Phone Unavailable Primary Care Provider Unavailabl e Encounter Details Date Type Department Care Team (Latest Contact Info) Description 10/27/2012 Abstract [facility] Medical Group Efren Garcia FNP [address] [place] [address] Social History Tobacco Use Types [...] with food in the evening daily; Therapy: [id number] to (Last Rx:[id number]) Requested for: [id number] 4. Diclofenac Sodium 75 MG Oral Tablet Delayed Release; TAKE ONE TABLET BY MOUTH TWICE A DAY WITH FOOD; Therapy: 14Qnv5182 to (Evaluate:16Nov2012) Requested for: 17Oct2012; Last Rx:[id number] 5. MiraLax PACK; Therapy: (Recorded:14Oct2012) to 6. Mirtazapine 15 MG Oral Tablet; TAKE 1/2 TO 1 TABLET AT BEDTIME; Therapy: 14Oct2012 to (Evaluate:09Oct2013) Requested for: 14Oct2012; Last Rx:14Oct2012 7. Multi-Vitamin TABS; Therapy: (Recorded:14Oct2012) to 8. NexIUM 40 MG Oral Capsule Delayed Release; TAKE 1 CAPSULE ONCE DAILY; Therapy: (Recorded:23Sep2012) to 9. [place]-3 Complex CAPS; Therapy: (Recorded:14Oct2012) to 10. TraMADol HCl 50 MG Oral Tablet; Take 1-2 tablets every 6 hours as needed; Therapy: 14Oct2012 to (Last Rx:14Oct2012) 11. Vitamin B12 TABS; Therapy: (Recorded:14Oct2012) to 12. Xanax 0.25 MG Oral Tablet; TAKE 1 TABLET DAILY; Therapy: (Recorded:23Sep2012) to 13. ZyrTEC-D Allergy & Congestion TB12; Therapy: (Recorded:14Oct2012) to ROOM OPERATOR documented in this encounter Plan of Treatment Upcoming Encounters Date Type Department Care Team (Late st Contact Info) Description 11/14/2024 8:00 AM WASHROOM OPERATOR Office Visit [facility] Medical Group Multispecialty Care - [facility] 3 [facility], [address] [place] [address] Montserrat Oliver, DOREEN 3 [facility] [address] [place] [address] 12/06/2024 9:30 AM WASHROOM OPERATOR Appointment [facility] [address] [place] [address] [place] [address] [address] [place] [address] 03/02/2025 3:20 PM CDT Office Visit [facility] Medical Group Family & Internal Medicine - [address] [address] [place] [address] [facility] D[address]ene. [address] [place] [address] documented as of this encounter Visit Diagnoses Not on filedocumented in this encounter
--- OUTSIDE RECORDS SUMMARY | 2024-11-13 17:56 | XMS_ITS | Encounter Summary ---
Author Organization [facility] Address [address] [place] [address]. [place] [address] [place] [address] Care Team Providers Care Clinic Business Manager Name Role Phone Jaspreet Pearl MD Primary Care Provider Felipe rangel Encounter Details Date Type Department Care Team (Late st Contact Info) Description 06/22/2007 Abstract [facility] CON[facility] [address] [place] [address] Efren Garcia, BUSINESS DEVELOPMENT CONSULTANT [address] [place] [address] Social History Tobacco Use Types Packs/Day Years [...] Info) Description 11/14/2024 8:00 AM REAL ESTATE ADMINISTRATIVE ASSISTANT Office Visit [facility] Medical Group Multispecialty Care - [facility] 3 [facility], [address] [place] [address] Montserrat Oliver, DOREEN 3 [facility] [address] [place] [address] 12/06/2024 9:30 AM REAL ESTATE ADMINISTRATIVE ASSISTANT Appointment [facility] Open MRI [address] [place] [address] [place] [address] [facility] [address]. [address] [place] [address] 03/02/2025 3:20 PM CDT Office Visit [facility] Medical Group Family & Internal Medicine [facility] [address] [place] [address] [place] [address] [facility] [address] [place], [place] [address] documented as of this encounter Visit Diagnoses Not on filedocumented in this encounter Care Teams Clinic Business Manager Relationship Specialty Start Date End Date Jaspreet Pearl MD PCP - General INTERNAL MEDICINE 11/30/18 02/18/23 documented as of this encounter
--- OUTSIDE RECORDS SUMMARY | 2024-11-13 17:56 | XMS_ITS | Encounter Summary ---
Author Organization [facility] Address [address] [place] [address]. [place] [address] [place] [address] Care Team Providers Care Recreational Director Name Role Phone Unavailable Primary Care Provider Unavailabl e Encounter Details Date Type Department Care Team (Latest Contact Info) Description 02/24/2013 Abstract [facility] Medical Group [...] st Contact Info) Description 11/14/2024 8:00 AM PRE OWNED SALES MANAGER Office Visit [facility] Medical [facility] Multispecialty Care - [facility] 3 [facility], [address] [place] [address] Montserrat Oliver, CHARTER COACH DRIVER 3 [facility] [address] [place] [address] 12/06/2024 9:30 AM PRE OWNED SALES MANAGER Appointment [facility] Open MRI [address] [place] [address] [place] [address] [address] [place] [address] 03/02/2025 3:20 PM CDT Office Visit [facility] Medical Group Family & Internal Medicine - [place] [address] [place] [address] [place] [address] [facility]. [address] [place] [address] documented as of this encounter Visit Diagnoses Not on filedocumented in this encounter
--- OUTSIDE RECORDS SUMMARY | 2024-11-13 17:56 | XMS_ITS | Encounter Summary ---
Author Organization [facility] Address [address] [place] [address]. [place] [address] [place] [address] Care Team Providers Care Internet Webmaster Name Role Phone Unavailable Primary Care Provider Unavailabl e Encounter Details Date Type Department Care Team (Late st Contact Info) Description 03/20/[address] [facility] [address] [place], [place] [id number] Kings Elder MD Social History Tobacco Use [...] Contact Info) Description 11/14/2024 8:00 AM MANAGER CAFE Office Visit [facility] - [place] [facility], [address] [place] [phone] Montserrat Oliver NP 3 [facility] [address] [place] [address] 12/06/2024 9:30 AM MANAGER CAFE Appointment [facility] [address] [place] [address] [place] [address] [facility] [place] [address] 03/02/2025 3:20 PM CDT Office Visit [facility] Family & Internal Medicine - [place] [id number] [place] [phone] [place] [id number] [place] [address]. [address] [place], [place] [id number] documented as of this encounter Visit Diagnoses Not on filedocumented in this encounter
--- OUTSIDE RECORDS SUMMARY | 2024-11-13 17:56 | XMS_ITS | Encounter Summary ---
Author Organization [facility] Address [address] [place] [address]. [place] [address] [place] [address] Care Team Providers Care Nurse Educator Name Role Phone Unavailable Primary Care Provider Unavailabl e Encounter Details Date Type Department Care Team (Latest Contact Info) Description 09/23/2012 Abstract [facility] [place] [address] [address] Social History Tobacco Use Types [...] Comments Blood Pressure 128/76 09/23/2012 2:04 PM REAL ESTATE ASSESSOR Pulse 75 09/23/2012 2:04 PM REAL ESTATE ASSESSOR Temperature - - Respiratory Rate - - Oxygen Saturation - - Inhaled Oxygen Concentration - - Weight 70.8 kg (156 lb) 09/23/2012 2:04 PM REAL ESTATE ASSESSOR Height - - Body Mass Index - [...] Weight 156 lb O2 Saturation 98 LMP [id number] Physical Exam Constitutional General appearance: No acute [...] JAIRO Muir; Nov 12 2012 1:46PM (Author) ESTATE ASSESSOR documented in this encounter Plan of Treatment Upcoming Encounters Date Type Department Care Team (Late st Contact Info) Description 11/14/2024 8:00 AM REAL ESTATE ASSESSOR Office Visit [facility] Multispecialty Care - [address], [address] [place] [phone] Montserrat Oliver NP 3 [facility] [address] [place] [address] 12/06/2024 9:30 AM REAL ESTATE ASSESSOR Appointment [facility] Open MRI [address] [place] [address] [place] [address] [facility]. [address] [place] [address] 03/02/2025 3:20 PM CDT Office Visit [facility] Family & Internal Medicine - [address] [phone] [place] [address] [facility]. [address] [place] [address] documented as of this encounter Visit Diagnoses Not on filedocumented in this encounter
== END 2024-11-06 10:30 | disposition short-term general hospital (02) ==
PROVIDERS: Emergency Provider Nurse Practitioner Family; PCP Family Medicine
DX: J18.9 Pneumonia, unspecified organism (principal); R11.2 Nausea with vomiting, unspecified; R19.7 Diarrhea, unspecified; M06.9 Rheumatoid arthritis, unspecified; Z79.899 Other long term (current) drug therapy; Z20.822 Contact with and (suspected) exposure to COVID-19
CPT/HCPCS: 71046; 74018; 87426; 87804; 99213; G0463

== ENCOUNTER 2024-11-06 10:44 | Emergency (ER) | payer OTHER, SELFPAY ==
[2024-11-06] VITALS (14 sets, daily range): BP systolic 113–127; BP diastolic 55–70; PULSE 76–97; RESP 11–20; TEMP 36.4; O2SAT 96–100
--- NOTE | 2024-11-06 10:48 | ECG_ITS ---
Test Date: 2024-11-06 10:57:10 Measurements Intervals [place] Rate: 85 P: 71 [place]: 161 QRS: 44 QRSD: 109 T: 61 QT: 348 QTc: 415 Interpretive Statements SINUS RHYTHM POSSIBLE LEFT ATRIAL ENLARGEMENT [-0.1mV P WAVE IN V1/V2] NONSPECIFIC ST & T-WAVE ABNORMALITY No previous ECG available for comparison Electronically Signed On 11-07-2024 15:24:10 COIN PURSE ASSEMBLER by Sowmya Dill M.D.
[2024-11-06 11:37] LABS: Basophils Percent Auto 0.1 % (0.2-1.2); Hematocrit 35.7 % (37.0-47.0); Hemoglobin 12.3 g/dL (12.0-15.0); Immature Granulocyte Absolute 0.02 K/mm3 (0.00-0.031); Immature Granulocyte Percent A 0.2 % (0-0.5); Lymphocytes Absolute Auto 0.75 K/mm3 (0.9-3.2); Lymphocytes Percent Auto 9.3 % (18.3-44.2); Mean Corpuscular HGB Conc 34.5 g/dl (32-36); Mean Corpuscular Hemoglobin 33.1 pg (26-34); Mean Platelet Volume 10.1 fl (7.4-10.4); Monocytes Absolute Auto 0.5 K/mm3 (0.1-0.6); Monocytes Percent Auto 6.7 % (2.6-8.5); Neutrophils Absolute Auto 6.7 K/mm3 (1.3-6.7); Neutrophils Percent Auto 83.7 % (45.5-73.1); Platelet Count Result 181 k/mm3 (150-375); Red Blood Count 3.72 M/mm3 (4.2-5.4); Red Cell Distribution Width 14.5 % (11.5-14.5)
--- NOTE | 2024-11-06 11:37 | ED_ITS ---
HPI - Recheck/Abnormal Lab/Rx General Chief Complaint: Recheck/Abnormal Lab/Rx Stated Complaint: PNA Time Seen by Provider: 11/06/24 11:15 History of Present Illness HPI narrative: 59-year-old female with a past medical history including previous small-bowel obstruction. Patient presents to the emergency emergency department via referral from urgent care for concerns of pneumonia and difficulty tolerating p.o. intake. Patient states she has been having nausea, vomiting, diarrhea fever up to 101 yesterday as well as chills. She states that she is having some pain with deep breathing in the left side of her chest, states she initially felt anxious and was treating her symptoms to this. She has been having diarrhea with loose liquid stools as well as nausea vomiting for 2 days. She also states that she had an episode of syncope while having a coughing fit and when she woke up she had vomited about her and thought she might have aspirated some. She is not any respiratory distress and presents via private vehicle. Normal reassuring vital signs. Related Data Home Medications ?Medication ?Instructions ?Recorded ?Confirmed ?Last Taken ?Type alprazolam 0.25 mg tablet mg 11/06/24 Unknown History estradiol 0.01% (0.1 mg/gram) vaginal 11/06/24 Unknown History vaginal cream etanercept 50 mg/mL (1 mL) mg subcut 11/06/24 Unknown History subcutaneous syringe (Enbrel) folic acid 1 mg tablet 11/06/24 Unknown History methotrexate sodium 2.5 mg tablet mg 11/06/24 Unknown History nabumetone 500 mg tablet mg 11/06/24 Unknown History ondansetron 8 mg disintegrating mg 11/06/24 Unknown History tablet trazodone 100 mg tablet mg 11/06/24 Unknown History valacyclovir 1 gram tablet mg 11/06/24 Unknown History Allergies Allergy/AdvReac Type Severity Reaction Status Date / Time levofloxacin (From Levaquin) AdvReac Intermediate Hallucinati Verified 11/06/24 10:51 ng Review of Systems 2 Review of Systems: As reviewed above in HPI PMFSH Past Medical History Medical History Rheumatoid arthritis Small bowel obstruction Anxiety Exam 2 Narrative: GENERAL: [Well-appearing, well-nourished, and in no acute distress.] HEAD: [Normocephalic, atraumatic.] EYES: [PERRLA and EOMI.] ENT: Nares clear, no rhinorrhea or epistaxis. Mucous membranes moist. NECK: Supple. CHEST: Coarse breath sounds especially in the left lung base, no respiratory distress, or wheezing. HEART: [Regular rate and rhythm]. No murmur heard. [Normal peripheral pulses.] ABDOMEN: soft nontender abdomen, nondistended, [No rigidity or guarding] EXTREMITIES: Normal range of motion. [No edema.] SKIN: Warm, dry, no rash. NEURO: [No focal deficits]. Alert and oriented [x3.] PSYCH: [Normal mood and affect.] Course Vital Signs Vital signs: Vital Signs Temperature 36.4 C 11/06/24 10:48 Pulse Rate 97 11/06/24 10:48 Respiratory Rate 16 11/06/24 10:48 Blood Pressure 114/65 11/06/24 10:48 Pulse Oximetry 97 11/06/24 10:48 Oxygen Delivery Room Air 11/06/24 10:48 Temperature 36.4 C 11/06/24 10:48 Pulse Rate 79 11/06/24 14:30 Respiratory Rate 14 11/06/24 14:30 Blood Pressure 113/70 11/06/24 12:08 Pulse Oximetry 98 11/06/24 14:30 Oxygen Delivery Room Air 11/06/24 12:08 MDM - Recheck/Abnormal Lab/Rx MDM Narrative Medical decision making narrative: 59-year-old female presenting via urgent care for evaluation of difficulty in breathing, nausea, vomiting, diarrhea. She was found have a pneumonia on outpatient workup and she was sent here as she was having difficulty tolerating p.o. intake and suspicion that she would not tolerate oral antibiotic therapy. Patient otherwise appears well not any acute distress and has normal vital signs. No fever, chills or hypoxia. She does have some coarse breath sounds but no respiratory distress. Her abdomen is soft, nondistended, nontender. She has a previous history of a bowel obstruction but likely not causing any symptoms presently as she is having loose liquidy stool in no distension. Blood work was obtained including CBC, CMP, EKG. Chest x-ray and abdominal x-rays were obtained over at urgent care and reviewed here. I reviewed the x-rays into see a pneumonia in the left-sided lower lungs as well as lingula and unremarkable abdomen x-ray with normal gas pattern. Confirmed by radiology report. Patient was started on IV antibiotics including azithromycin and doxycycline and given a fluid bolus. She is given Zofran for nausea and will be repeatedly evaluated for improvement and seeing if she can tolerate p.o. intake. I did discuss with the patient that if she was not able tolerate p.o. intake that she would be admitted to the hospital for IV antibiotic therapy and continue treatments. Patient agreeable with this plan of care presently. Patient was re-evaluated after we had some laboratory studies. No leukocytosis or anemia. Electrolytes within normal limits, normal renal and hepatic function panel. No urinary tract infection. COVID fluid RSV swab negative. Patient has been able to successfully tolerate p.o. challenge at this time felt more comfortable with discharge home for the holidays in 7 admission to the hospital. I felt this was appropriate given her ability to tolerate oral intake and can be started on oral antibiotics. We went over return precautions including intractable nausea, vomiting, worsening respiratory status or any other concerns and she should return to the emergency department at that time. Patient was stable for discharge home at this time. Medical Records Attestation: I reviewed the patient's medical records. Lab Data Attestation: I reviewed the patient's lab results. 11/06/24 11:30 11/06/24 11:30 Labs: Lab Results 11/06/24 11/06/24 Range/Units 11:30 13:09 WBC 8.0 (4.5-10.0) K/mm3 RBC 3.72 L (4.2-5.4) M/mm3 Hgb 12.3 (12.0-15.0) g/dL Hct 35.7 L (37.0-47.0) % MCV 96.0 (80-100) fl MCH 33.1 (26-34) pg MCHC 34.5 (32-36) g/dl RDW 14.5 (11.5-14.5) % Plt Count 181 (150-375) k/mm3 MPV 10.1 (7.4-10.4) fl Immature Gran % (Auto) 0.2 (0-0.5) % Neut % (Auto) 83.7 H (45.5-73.1) % Lymph % (Auto) 9.3 L (18.3-44.2) % Tompkins % (Auto) 6.7 (2.6-8.5) % Eos % (Auto) 0.0 (0-4.4) % Baso % (Auto) 0.1 L (0.2-1.2) % Lymph # (Auto) 0.75 L (0.9-3.2) K/mm3 Tompkins # (Auto) 0.5 (0.1-0.6) K/mm3 Eos # (Auto) 0.0 (0-0.3) K/mm3 Baso # (Auto) 0.0 (0.0-0.1) K/mm3 Abs Immat Gran (auto) 0.02 (0.00-0.031) K/mm3 Absolute Neuts (auto) 6.7 (1.3-6.7) K/mm3 Absolute Nucleated RBC 0.000 (0.0-0.012) K/mm3 Nucleated RBC % 0.0 (0.0-0.2) % Sodium 135 L (137-145) mmol/L Potassium 3.5 (3.4-5.0) mmol/L Chloride 103 (98-107) mmol/L Carbon Dioxide 26 (22-30) mmol/L Anion Gap 6 (4-12) mmol/L BUN 12 (7-17) mg/dL Creatinine 0.60 L (0.7-1.0) mg/dL Estim Creat Clear Calc 84 ml/min Estimated GFR > 60 (59 - ) Glucose 110 (65-110) mg/dL Calcium 9.2 (8.4-10.2) mg/dL Total Bilirubin 0.8 (0.2-1.3) mg/dL AST 33 (14-36) U/L ALT 31 (6-35) U/L Alkaline Phosphatase 107 (38-126) U/L Total Protein 7.0 (6.3-8.2) g/dL Albumin 3.8 (3.5-5.1) g/dL Urine Color Yellow (Yellow) Urine Appearance Clear (Clear) Urine pH 6.5 (5.0-9.0) Ur Specific Dana 1.007 (1.001-1.035) Urine Protein Negative (Negative) mg/dL Urine Glucose (UA) Negative (Negative) mg/dL Urine Ketones 2+ H (Negative) mg/dL Ur Blood (Man) Negative (Negative) Urine Nitrate Negative (Negative) Urine Bilirubin Negative (Negative) Urine Urobilinogen 2.0 H (<2.0) mg/dL Leukocyte Esterase Rfl Negative (Negative) STACEY/UL Imaging Data Attestation: I personally reviewed and interpreted this imaging study as follows: My impression: IMPRESSION: 1. Lingular and inferior left lower lobar pneumonia. Discharge Plan Discharge Clinical Impression: Nausea, vomiting and diarrhea Pneumonia Qualifiers: Pneumonia type: due to unspecified organism Laterality: left Lung location: l ower lobe of lung Qualified Code(s): J18.9 - Pneumonia, unspecified organism Patient Disposition: Home, Self-Care Condition: Stable Instructions: Antibiotic Form, Acute Nausea and Vomiting (ED), Bacterial Pneumonia (DC) Additional Instructions: We will send you home with antibiotics to treat your pneumonia and will also treat your nausea and vomiting. If he cannot tolerate any oral intake or your antibiotics any of worsening symptoms such as difficulty breathing, chest pain or any other concerns please return to the emergency department otherwise complete your entire antibiotic course and follow up with regular primary care provider outpatient. Patient Language: Colombian Prescriptions: New amoxicillin-pot clavulanate 875-125 mg tablet 1 tablet PO Q12H 7 Days Qty: 14 0RF doxycycline hyclate 100 mg capsule 100 mg PO BID 5 Days Qty: 10 0RF ondansetron 4 mg tablet,disintegrating 4 mg PO Q8H PRN (Reason: nausea and vomiting) Qty: 20 0RF No Action valacyclovir 1 gram tablet ondansetron 8 mg tablet,disintegrating alprazolam 0.25 mg tablet methotrexate sodium 2.5 mg tablet trazodone 100 mg tablet folic acid 1 mg tablet estradiol 0.01 % (0.1 mg/gram) cream VAGINAL nabumetone 500 mg tablet Enbrel 50 mg/mL (1 mL) syringe SUBCUT Follow-up/Referrals: Bola,MD Dayanara [Primary Care Provider] - Time of Disposition: 14:18
[2024-11-06 11:57] LABS: Alanine Aminotransferase 31 U/L (6-35); Albumin Level 3.8 g/dL (3.5-5.1); Alkaline Phosphatase 107 U/L (38-126); Anion Gap 6 mmol/L (4-12); Aspartate Amino Transferase 33 U/L (14-36); Bilirubin,Total 0.8 mg/dL (0.2-1.3); Blood Urea Nitrogen 12 mg/dL (7-17); Calcium 9.2 mg/dL (8.4-10.2); Carbon Dioxide 26 mmol/L (22-30); Chloride 103 mmol/L (98-107); Estimated CRCL calculation 84 ml/min; Estimated Glomerular Filt Rate > 60; Glucose 110 mg/dL (65-110); Potassium 3.5 mmol/L (3.4-5.0); Sodium 135 mmol/L (137-145)
[2024-11-06] MEDS: ONDANSETRON INJ 4 MG/2 ML VIAL IV PUSH (11:58)
[2024-11-06] MEDS: LACTATED RINGERS 1,000 ML 999 ML IV CONT (11:58)
[2024-11-06] MEDS: DOXYCYCLINE 100 MG/NS 100 ML 100 MG/100 ML BAG IVPB (11:59)
[2024-11-06] MEDS: AZITHROMYCIN 500 MG/NS 250 ML 500 MG/250 ML BAG 250 MG IVPB (13:13)
[2024-11-06 13:18] LABS: Add Urine Microscopic? YES; Appearance Urine Clear (Clear); Bilirubin Urine Negative (Negative); Blood Urine Negative (Negative); Color Urine Yellow (Yellow); Glucose Urine UA Negative (Negative); Ketones Urine 2+ mg/dL (Negative); Leukocyte Esterase Ur Negative LEU/UL (Negative); Nitrate Urine Negative (Negative); Protein Urine Negative (Negative); Specific Grav Ur 1.007 (1.001-1.035); pH Urine 6.5 (5.0-9.0)
== END 2024-11-06 14:34 | disposition home or self-care (01) ==
PROVIDERS: Emergency Provider Student in an Organized Health Care Education/Training Program; PCP Family Medicine
DX: J18.9 Pneumonia, unspecified organism (principal); R11.2 Nausea with vomiting, unspecified; R19.7 Diarrhea, unspecified; M06.9 Rheumatoid arthritis, unspecified; F41.9 Anxiety disorder, unspecified
CPT/HCPCS: 36415; 80053; 81001; 85025; 93005; 96361; 96365; 96367; 96375; 99284; J0456; J2405; J7120